=== PATIENT | male | born 1965 | race Caucasian/White ===

== ENCOUNTER 2016-09-14 19:13 | Observation (INO) | payer MEDICARE, OTHER ==
[2016-09-14 19:49] VITALS: BMI 33.9
--- NOTE | 2016-09-14 20:25 | ED PDOC ---
Arrival/HPI - General Chief Complaint: Headache Time Seen by Provider: 09/14/16 19:59 Historian: Patient - History of Present Illness Narrative History of Present Illness (Text): 09/14/16 20:27 A 51 year old male, whose past medical history includes CAD s/p stent placement , ESRD (on hemodialysis) and bronchial asthma, presents from dialysis following recurrent pains to his body and chest. Patient also notes associated brief syncopal episode. States chest pain developed two days ago. Patient denies any fever, chills, cough, abdominal pain, shortness of breath or any other complaints at this time. Patient states he is currently feeling better, no chest pain present. Time/Duration: Other (2 days) Symptom Onset: Sudden Symptom Course: Unchanged Activities at Onset: Rest Context: Other (dialysis) Past Medical History - Provider Review Nursing Documentation Reviewed: Yes - Past History Past History: No Previous - Infectious Disease Hx of Infectious Diseases: None - Tetanus Immunization Tetanus Immunization: Up to Date - Cardiac Hx Hypertension: Yes Hx Pacemaker: No - Pulmonary Hx Chronic Obstructive Pulmonary Disease (COPD): Yes - Neurological Hx Neurological Disorder: No Hx Paralysis: No - HEENT Hx HEENT Disorder: Yes (BILATERAL EYE WITH BLURRY VISION) Hx Cataracts: Yes (HAD SX 05/29/12) Other/Comment: left eye cornea transplant,RENAL RETINOPATHY, glasses - Renal Hx Renal Disorder: Yes Hx Dialysis: Yes (M-W-F) Type of Dialysis Access: AV shunt Date of Last Dialysis Treatment: 09/14/16 - Endocrine/Metabolic Hx Diabetes Mellitus Type 2: Yes - Hematological/Oncological Hx Blood Transfusions: Yes (5 YRS AGO) Hx Blood Transfusion Reaction: No - Integumentary Hx Dermatological Disorder: Yes (BILATERAL EDEMA TO UPPER AND LE,SKIN DRYNESS) - Musculoskeletal/Rheumatological Hx Musculoskeletal Disorders: No - Gastrointestinal Hx Gastrointestinal Disorders: (hx pancreatitis) Hx Gall Bladder Disease: Yes (CHOLECYSTECTOMY) Hx Gastroesophageal Reflux: Yes Hx Liver Failure: Yes (CKD) Hx Pancreatitis: Yes - Genitourinary/Gynecological Hx Genitourinary Disorders: Yes - Psychiatric Hx Psychophysiologic Disorder: No Hx Substance Use: No - Surgical History Hx Cardiac Catheterization: Yes Hx Cholecystectomy: Yes (08/15/12) Hx Coronary Stent: Yes Other/Comment: FISTULA - Anesthesia Hx Anesthesia: No Hx Anesthesia Reactions: No Hx Malignant Hyperthermia: No - Suicidal Assessment Feels Threatened In Home Enviroment: No Family/Social History - Physician Review Nursing Documentation Reviewed: Yes Family/Social History: No Known Family HX Smoking Status: Never Smoked Hx Alcohol Use: No Hx Substance Use: No Hx Substance Use Treatment: No Allergies/Home Meds Allergies/Adverse Reactions: Allergies insulin aspart [From Novolog] Allergy (Intermediate, Verified 06/16/15 10:08) ITCHING ANY INSULIN THAT STARTS WITH NOV- moxifloxacin Allergy (Intermediate, Verified 04/07/15 06:48) ITCHING Penicillins Allergy (Intermediate, Verified 04/07/15 06:48) ITCHING Home Medications: Home Meds Medication Instructions Recorded Confirmed Tamsulosin [Flomax] 1 cap PO HS 04/19/13 01/04/16 Zolpidem Tartrate 10 mg PO HS PRN 12/11/13 01/04/16 Cholecalciferol [Vitamin D 1000 IU] 50,000 iu PO WED 01/19/15 01/04/16 Clopidogrel [Plavix] 75 mg PO MWF 01/19/15 01/04/16 Fenofibrate Nanocrystallized 145 mg PO DAILY 01/19/15 01/04/16 [Fenofibrate] Montelukast [Singulair] 10 mg PO HS 01/19/15 01/04/16 Cetirizine HCl [Zyrtec] 10 mg PO QA 11/16/15 01/04/16 Ezetimibe [Zetia] 10 mg PO DAILY 11/16/15 01/04/16 Furosemide [Lasix] 40 mg PO BID 11/16/15 01/04/16 Gabapentin [Neurontin] 300 mg PO TID 11/16/15 01/04/16 Glipizide [Glipizide Xl] 10 mg PO BID 11/16/15 01/04/16 Metoprolol Tartrate [Metoprolol 50 mg PO [facility] 11/16/15 01/04/16 Tartrate] Hoffman-3 Acid Ethyl Esters [Lovaza] 1 gm PO BID 11/16/15 01/04/16 Rosuvastatin Calcium [Crestor] 20 mg PO HS 11/16/15 01/04/16 Albuterol HFA [Ventolin HFA 90 2 puff IH BID 12/11/15 01/04/16 mcg/actuation (8 g)] Calcium Acetate [Phoslo] 667 mg PO DAILY 12/11/15 01/04/16 Fluticasone/Salmeterol 250/50 1 puff IH Q12 12/11/15 01/04/16 [Advair Diskus] HumuLIN R 90 units SQ BID 01/04/16 01/04/16 Insulin Human NPH [Humulin N] 90 units SQ BID 01/04/16 01/04/16 Review of Systems - Physician Review All systems were reviewed & negative as marked: Yes - Review of Systems Constitutional: Other (body pain; no chills). absent: Fevers Respiratory: absent: SOB, Cough Cardiovascular: Chest Pain, Syncope (brief episode) Physical Exam Vital Signs Reviewed: Yes Vital Signs Temp Pulse Resp BP Pulse Ox 09/14/16 23:05 76 16 145/79 100 09/14/16 19:14 97.9 F 73 16 154/64 H 100 Temperature: Afebrile Blood Pressure: Hypertensive Pulse: Regular Respiratory Rate: Normal Appearance: Positive for: Well-Appearing, Non-Toxic, Comfortable Pain Distress: None Mental Status: Positive for: Alert and Oriented X 3 - Systems Exam Head: Present: Atraumatic, Normocephalic Pupils: Present: PERRL Extroacular Muscles: Present: EOMI Conjunctiva: Present: Normal Mouth: Present: Moist Mucous Membranes Neck: Present: Normal Range of Motion Respiratory/Chest: Present: Clear to Auscultation, Good Air Exchange. No: Respiratory Distress, Accessory Muscle Use Cardiovascular: Present: Regular Rate and Rhythm, Normal S1, S2. No: Murmurs Abdomen: Present: Normal Bowel Sounds. No: Tenderness, Distention, Peritoneal Signs Back: Present: Normal Inspection Upper Extremity: Present: Normal Inspection. No: Cyanosis, Edema Lower Extremity: Present: Normal Inspection. No: Edema Neurological: Present: GCS=15, CN II-XII Intact, Speech Normal Skin: Present: Warm, Dry, Normal Color. No: Rashes Psychiatric: Present: Alert, Oriented x 3, Normal Insight, Normal Concentration Medical Decision Making ED Course and Treatment: 09/14/16 20:22 Impression: A 51 year old male with recurrent pains to body and chest. Plan: -- EKG -- chest xray -- labs -- Reassess and disposition Prior Visits: Notes and results from previous visits were reviewed. Patient last reported to the emergency department on 12/29/15 for evaluation of fever. Patient was hospitalized under Dr. Kessler's service for fever, ESRD and sepsis. Patient discharged on 01/02/16. Progress Notes: EKG: Ordered, reviewed, and independently interpreted the EKG. Rate : 70 BPM Rhythm : NSR Interpretation : LAD No ST/T wave changes Comparison : No acute change from previous EKG on 12/29/2015. Chest X-ray shows no acute processes. 09/14/16 23:[address] Kessler, is aware and agrees with plan. Accepts patient into her service. Pt will go to remote telemetry for chest pain. Patient is in no acute distress. Discussed results and hospital observation plan with pt, who agrees and verbalizes understanding. - Lab Interpretations Lab Results: 09/14/16 20:15 09/14/16 20:15 Lab Results 09/14/16 20:15: PT 11.5, INR 1.06, APTT 23.6 L 09/14/16 20:15: WBC 2.9 L* D, RBC 3.34 L, Hgb 10.5 L, Hct 31.0 L, MCV 92.8, MCH 31.4, MCHC 33.9, RDW 13.3, Plt Count 145, MPV 11.5 H 09/14/16 20:15: Sodium 139, Potassium 3.2 L, Chloride 99, Carbon Dioxide 31, Anion Gap 12, BUN 17, Creatinine 2.5 H, Est GFR ( Amer) 33, Est GFR (Non- Af Amer) 27, Random Glucose 153 H, Calcium 8.6, Total Bilirubin 0.7, AST 45, ALT 44, Alkaline Phosphatase 58, Lactate Dehydrogenase 689, Total Creatine Kinase 392 H, CK-MB (CK-2) 5.0 H, CK-MB (CK-2) % 1.3 L, Troponin I 0.09, Total Protein 8.1, Albumin 4.1, Globulin 4.1, Albumin/Globulin Ratio 1.0 L I have reviewed the lab results: Yes - RAD Interpretation Radiology Orders: 09/14/16 20:10 CHEST PORTABLE [RAD] Stat - EKG Interpretation Interpreted by ED Physician: Yes Type: 12 lead EKG - Medication Orders Current Medication Orders: Discontinued Medications Aspirin (Aspirin) 325 mg PO ONCE STA Stop: 09/14/16 23:10 - Scribe Statement The provider has reviewed the documentation as recorded by the Elizabethibe Kathi Rankin Provider Scribe Attestation: All medical record entries made by the Scribe were at my direction and personally dictated by me. I have reviewed the chart and agree that the record accurately reflects my personal performance of the history, physical exam, medical decision making, and the department course for this patient. I have also personally directed, reviewed, and agree with the discharge instructions and disposition. Disposition/Present on Arrival - Present on Arrival Any Indicators Present on Arrival: No History of DVT/PE: No History of Uncontrolled Diabetes: Yes Urinary Catheter: No History of Decub. Ulcer: No History Surgical Site Infection Following: None - Disposition Have Diagnosis and Disposition been Completed?: Yes Diagnosis: Chest pain Disposition: HOSPITALIZED Disposition Time: 23:24 Patient Plan: Observation Patient Problems: Current Active Problems Problem Status Onset Chest pain Acute Condition: GOOD Discharge Instructions (ExitCare): Chest Pain (ED) Referrals: Diana Kessler MD [Primary Care Provider] - Follow up with primary
[2016-09-14 20:26] LABS: MEAN CELL VOLUME 92.8 fL (80.0-105.0); MEAN CORPUSCULAR HEMOGLOBIN 31.4 pg (25.0-35.0); MEAN CORPUSCULAR HGB CONC 33.9 g/dl (31.0-37.0); MEAN PLATELET VOLUME 11.5 fl (7.0-11.0); RED CELL DISTRIBUTION WIDTH 13.3 % (11.5-14.5)
[2016-09-14 20:34] LABS: WHITE BLOOD COUNT 2.9 10^3/ul (4.5-11.0)
[2016-09-14 20:35] LABS: BILIRUBIN,TOTAL 0.7 mg/dL (0.2-1.3); CALCIUM 8.6 mg/dL (8.4-10.5); POTASSIUM 3.2 mmol/L (3.6-5.0); TOTAL PROTEIN 8.1 g/dL (5.8-8.3)
[2016-09-14 20:37] LABS: INR 1.06 (0.93-1.08); PARTIAL THROMBOPLASTIN TIME 23.6 Seconds (23.7-30.8)
[2016-09-14 20:46] LABS: TROPONIN I 0.09 ng/mL
[2016-09-15] MEDS ORDERED: Budesonide 0.5 mg/2 ml Inhal Susp UD IH SCH (00:15)
[2016-09-15] MEDS ORDERED: Arformoterol 15 mcg/2 ml Inh Sol IH SCH ×2 (00:15→08:00)
[2016-09-15] MEDS ORDERED: Albuterol 0.083% Inhal Sol (2.5 mg/3 mL) UD IH SCH (00:56)
--- NOTE | 2016-09-15 01:49 | CP.PCM.PN ---
Subjective - Date & Time of Evaluation Date of Evaluation: 09/15/16 Time of Evaluation: 01:48 - Subjective Subjective: Patient was seen at bedside. He is complaining of aches from head to toes. Also , he is asking for his neurontin, singular, flomax and ambien. Has no other complaints. No chest pain, no sob. ROS : Negative except as mentioned above. This 51 year old male admitted Has PMH of ESRD on HD, COPD, DM, HTN, CAD, coronary stents , pancreatitis, anemia, obesity, cholecystectomy, bilateral corneal implant, bilateral eye surgery. Objective - Vital Signs/Intake and Output Vital Signs (last 24 hours): Temp Pulse Resp BP Pulse Ox 97.9 F 79 18 152/81 H 100 09/14/16 19:14 09/15/16 00:12 09/15/16 00:12 09/15/16 00:12 09/15/16 00:12 - Medications Medications: Current Medications Albuterol Sulfate (Albuterol 0.083% Inhal Jaimie (2.5 Mg/3 Ml) Ud) 2.5 mg IH BIDRESP [facility] Arformoterol Tartrate (Brovana) 15 mcg IH [id number] [facility] Last Admin: 09/15/16 00:51 Dose: 15 mcg Budesonide (Pulmicort Respules) 0.5 mg IH [id number] [facility] Calcium Acetate (Phoslo) 667 mg PO DAILY [facility] Cholecalciferol (Vitamin D) 50,000 iu PO WED [facility] Clopidogrel Bisulfate (Plavix) 75 mg PO MWF [facility] Ezetimibe (Zetia) 10 mg PO DAILY [facility] Fenofibrate (Tricor) 145 mg PO DAILY [facility] Furosemide (Lasix) 40 mg PO BID [facility] Gabapentin (Neurontin) 300 mg PO TID [facility] PRN Reason: Protocol Glipizide (Glucotrol Xl) 10 mg PO BID [facility] Insulin Human NPH (Humulin N) 90 units SC BID [facility] Insulin Human Regular (Humulin R Low) 0 units SC ACHS [facility] PRN Reason: Protocol Loratadine (Claritin) 10 mg PO QAM [facility] Metoprolol Tartrate (Lopressor) 50 mg PO MWF [facility] Montelukast Sodium (Singulair) 10 mg PO HS [facility] Tamsulosin HCl (Flomax) 0.4 mg PO HS [facility] Zolpidem Tartrate (Ambien) 10 mg PO HS PRN; Protocol PRN Reason: Insomnia - Labs Labs: PT 11.5 Seconds (9.9-11.8) 09/14/16 20:15 INR 1.06 (0.93-1.08) 09/14/16 20:15 APTT 23.6 Seconds (23.7-30.8) L 09/14/16 20:15 Most Recent Lab Values WBC 2.9 10^3/ul (4.5-11.0) L* D 09/14/16 20:15 RBC 3.34 10^6/uL (3.5-6.1) L 09/14/16 20:15 Hgb 10.5 gm/dL (14.0-18.0) L 09/14/16 20:15 Hct 31.0 % (42.0-52.0) L 09/14/16 20:15 MCV 92.8 fL (80.0-105.0) 09/14/16 20:15 MCH 31.4 pg (25.0-35.0) 09/14/16 20:15 MCHC 33.9 g/dl (31.0-37.0) 09/14/16 20:15 RDW 13.3 % (11.5-14.5) 09/14/16 20:15 Plt Count 145 10^3/uL (120.0-450.0) 09/14/16 20:15 MPV 11.5 fl (7.0-11.0) H 09/14/16 20:15 PT 11.5 Seconds (9.9-11.8) 09/14/16 20:15 INR 1.06 (0.93-1.08) 09/14/16 20:15 APTT 23.6 Seconds (23.7-30.8) L 09/14/16 20:15 Sodium 139 mmol/L (132-148) 09/14/16 20:15 Potassium 3.2 mmol/L (3.6-5.0) L 09/14/16 20:15 Chloride 99 mmol/L (98-107) 09/14/16 20:15 Carbon Dioxide 31 mmol/L (21-33) 09/14/16 20:15 Anion Gap 12 (10-20) 09/14/16 20:15 BUN 17 mg/dL (7-21) 09/14/16 20:15 Creatinine 2.5 mg/dL (0.5-1.4) H 09/14/16 20:15 Est GFR ( Amer) 33 09/14/16 20:15 Est GFR (Non-Af Amer) 27 09/14/16 20:15 Random Glucose 153 mg/dL (70-110) H 09/14/16 20:15 Calcium 8.6 mg/dL (8.4-10.5) 09/14/16 20:15 Total Bilirubin 0.7 mg/dL (0.2-1.3) 09/14/16 20:15 AST 45 U/L (15-59) 09/14/16 20:15 ALT 44 U/L (7-56) 09/14/16 20:15 Alkaline Phosphatase 58 U/L (38-133) 09/14/16 20:15 Lactate Dehydrogenase 689 U/L (333-699) 09/14/16 20:15 Total Creatine Kinase 392 U/L (35-230) H 09/14/16 20:15 CK-MB (CK-2) 5.0 ng/mL (0.0-3.6) H 09/14/16 20:15 CK-MB (CK-2) % 1.3 % (2.5-3.0) L 09/14/16 20:15 Troponin I 0.09 ng/mL 09/14/16 20:15 Total Protein 8.1 g/dL (5.8-8.3) 09/14/16 20:15 Albumin 4.1 g/dL (3.0-4.8) 09/14/16 20:15 Globulin 4.1 gm/dL 09/14/16 20:15 Albumin/Globulin Ratio 1.0 (1.1-1.8) L 09/14/16 20:15 - Constitutional Appears: Well, No Acute Distress - Head Exam Head Exam: ATRAUMATIC, NORMAL INSPECTION, NORMOCEPHALIC Additional comments: Obese. - Eye Exam Eye Exam: Normal appearance - ENT Exam ENT Exam: Normal External Ear Exam - Neck Exam Neck Exam: Normal Inspection - Respiratory Exam Respiratory Exam: NORMAL BREATHING PATTERN - Cardiovascular Exam Cardiovascular Exam: absent: JVD - GI/Abdominal Exam GI & Abdominal Exam: absent: Distended - Rectal Exam Rectal Exam: Deferred - Exam Additional comments: Above deferred. - Extremities Exam Extremities Exam: Normal Inspection - Back Exam Back Exam: NORMAL INSPECTION - Neurological Exam Neurological Exam: Alert, Oriented x3 - Psychiatric Exam Psychiatric exam: Normal Affect, Normal Mood - Skin Skin Exam: Normal Color Assessment and Plan - Assessment and Plan (Free Text) Assessment: Body aches. CKD on HD. Anemia. DM. HTN. CAD. History coronary stents placement. Obesity. Plan: Tylenol 975 mg PO stat. Will give neurontin, singular, flomax, ambien now. Continue present management as ordered by PMD.
[2016-09-15 06:51] VITALS: O2SAT 100
[2016-09-15] MEDS: Insulin Reg-LOW-Coverage SC SCH ×2 (08:28→12:32)
[2016-09-15] MEDS: Insulin Human NPH 1 UNITS/0.01 ML SC SCH ×2 (08:29→12:18)
--- NOTE | 2016-09-15 09:51 | RAD ---
HISTORY: chest pain COMPARISON: 12/29/2015 FINDINGS: LUNGS: No active pulmonary disease. PLEURA: No significant pleural effusion identified, no pneumothorax apparent. CARDIOVASCULAR: Moderate cardiomegaly OSSEOUS STRUCTURES: No significant abnormalities. VISUALIZED UPPER ABDOMEN: Normal. OTHER FINDINGS: None. IMPRESSION: No active disease.
[2016-09-15] MEDS ORDERED: GlipiZIDE 10 mg SR Tab PO SCH (10:00)
--- NOTE | 2016-09-15 11:03 | CP.PCM.CON ---
History of Present Illness - History of Present Illness History of Present Illness: Chest pain duriog dialysis last monday, when he dropss BP, gen weakness pain and aches all over body Past Patient History - Infectious Disease Hx of Infectious Diseases: None - Tetanus Immunizations Tetanus Immunization: Up to Date - Past Social History Smoking Status: Never Smoked - CARDIAC Hx Cardiac Disorders: Yes Hx Angina: Yes Hx Congestive Heart Failure: Yes Hx Hypertension: Yes Other/Comment: s/p PTCA LAD 3-4 years , Hx of PTCA RCA 10/2014. repeat Cath .. Non Obst CAd - PULMONARY Hx Chronic Obstructive Pulmonary Disease (COPD): Yes - NEUROLOGICAL Hx Neurological Disorder: No Hx Paralysis: No - HEENT Hx HEENT Problems: Yes (BILATERAL EYE WITH BLURRY VISION) Hx Cataracts: Yes (HAD SX 05/29/12) Other/Comment: left eye cornea transplant,RENAL RETINOPATHY, glasses - RENAL Hx Chronic Kidney Disease: Yes Hx Dialysis: Yes Date of Last Dialysis Treatment: 09/14/16 - ENDOCRINE/METABOLIC Hx Diabetes Mellitus Type 1: Yes - HEMATOLOGICAL/ONCOLOGICAL Hx Blood Transfusions: Yes (5 YRS AGO) Hx Blood Transfusion Reaction: No - INTEGUMENTARY Hx Dermatological Problems: Yes (BILATERAL EDEMA TO UPPER AND LE,SKIN DRYNESS) - MUSCULOSKELETAL/RHEUMATOLOGICAL Hx Falls: No - GASTROINTESTINAL Hx Gastrointestinal Disorders: (hx pancreatitis) Hx Gall Bladder Disease: Yes (CHOLECYSTECTOMY) Hx Gastroesophageal Reflux: Yes Hx Liver Failure: Yes (CKD) Hx Pancreatitis: Yes - GENITOURINARY/GYNECOLOGICAL Hx Genitourinary Disorders: Yes - PSYCHIATRIC Hx Psychophysiologic Disorder: No Hx Substance Use: No - SURGICAL HISTORY Hx Coronary Stent: Yes - ANESTHESIA Hx Anesthesia: No Hx Anesthesia Reactions: No Hx Malignant Hyperthermia: No Meds Allergies/Adverse Reactions: Allergies Allergy/AdvReac Type Severity Reaction Status Date / Time insulin aspart [From Novolog] Allergy Intermediate ITCHING Verified 06/16/15 10: 08 moxifloxacin Allergy Intermediate ITCHING Verified 04/07/15 06:48 Penicillins Allergy Intermediate ITCHING Verified 04/07/15 06:48 - Medications Medications: Current Medications Arformoterol Tartrate (Brovana) 15 mcg IH [id number] [facility] Last Admin: 09/15/16 07:32 Dose: 15 mcg Budesonide (Pulmicort Respules) 0.5 mg IH [id number] [facility] Last Admin: 09/15/16 07:29 Dose: 0.5 mg Calcium Acetate (Phoslo) 667 mg PO DAILY [facility] Last Admin: 09/15/16 09:38 Dose: 667 mg Clopidogrel Bisulfate (Plavix) 75 mg PO MWF [facility] Ezetimibe (Zetia) 10 mg PO DAILY [facility] Ergocalciferol (Drisdol 50,000 Intl Units Cap) 50,000 cap PO WED [facility] Fenofibrate (Tricor) 145 mg PO DAILY [facility] Last Admin: 09/15/16 09:38 Dose: 145 mg Furosemide (Lasix) 40 mg PO BID [facility] Last Admin: 09/15/16 09:38 Dose: 40 mg Gabapentin (Neurontin) 300 mg PO TID [facility] PRN Reason: Protocol Last Admin: 09/15/16 09:38 Dose: 300 mg Glipizide (Glucotrol Xl) 10 mg PO BID [facility] Last Admin: 09/15/16 09:38 Dose: 10 mg Insulin Human NPH (Humulin N) 90 units SC BID [facility] Last Admin: 09/15/16 08:29 Dose: 90 units Insulin Human Regular (Humulin R Low) 0 units SC ACHS [facility] PRN Reason: Protocol Last Admin: 09/15/16 08:28 Dose: 2 units Loratadine (Claritin) 10 mg PO QAM [facility] Last Admin: 09/15/16 09:39 Dose: 10 mg Metoprolol Tartrate (Lopressor) 50 mg PO MWF [facility] Montelukast Sodium (Singulair) 10 mg PO HS [facility] Tamsulosin HCl (Flomax) 0.4 mg PO HS [facility] Zolpidem Tartrate (Ambien) 10 mg PO HS PRN; Protocol PRN Reason: Insomnia Results - Vital Signs Recent Vital Signs: Last Vital Signs Temp 98.2 F 09/15/16 06:00 Pulse 70 09/15/16 07:35 Resp 22 09/15/16 06:00 BP 166/73 H 09/15/16 09:38 Pulse Ox 100 09/15/16 06:00 - Labs Result Diagrams: 09/14/16 20:15 09/14/16 20:15 - EKG Data When Compared to Previous EKG: No Significant Change Interpretation: Other EKG comments: NSR, at 70PRR progression, T inversion V6 Assessment & Plan - Assessment and Plan (Free Text) Assessment: 51 yr old male with T2Dm with full blown complication of Dm, diabetic retinopathy, Neuro[athy,Nephropathy on HD times three/wk Hx of CAD, S/p PTCa LAD 3-4 years Hx of Ptca RCa 11/01 Hx of repeat cath 11/2015 ... non obst CAD admittec javier talbot ome episode of chest pain last monday during dialysis when dropped bp no further episode of chedt misti, doubt is ischemic. Plan: F/u serial Cpk/ troponin, if negative may be dc home, if positive 9 doubt) then consider cath
--- NOTE | 2016-09-15 12:08 | CARD ---
APPROVED REPORT EKG Measurement Heart Dare71UPTH [id number] <Conclusion> Normal sinus rhythm Possible Left atrial enlargement Left axis deviation T wave abnormality, consider lateral ischemia Prolonged QT Abnormal ECG
[2016-09-15 12:25] VITALS: BP 186/86; PULSE 72; RESP 20; TEMP 98.3
[2016-09-21] MEDS ORDERED: Ergocalciferol 50,000 Intl Units Cap PO SCH (10:00)
--- NOTE | 2016-10-09 14:23 | CP.PCM.HP ---
History of Present Illness - History of Present Illness History of Present Illness: 09/15/16 A 51 year old male, whose past medical history includes CAD s/p stent placement , ESRD (on hemodialysis) and bronchial asthma, presents from dialysis following recurrent pains to his body and chest. Patient also notes associated brief syncopal episode. States chest pain developed two days ago. Patient denies any fever, chills, cough, abdominal pain, shortness of breath or any other complaints at this time. Patient states he is currently feeling better, no chest pain present. Present on Admission - Present on Admission Any Indicators Present on Admission: No Review of Systems - Constitutional Constitutional: As Per HPI - EENT Eyes: As Per HPI Ears: As Per HPI Nose/Mouth/Throat: As Per HPI - Cardiovascular Cardiovascular: As Per HPI - Respiratory Respiratory: As Per HPI - Gastrointestinal Gastrointestinal: As Per HPI - Genitourinary Genitourinary: As Per HPI - Reproductive: Male Reproductive:Male: As Per HPI Past Patient History - Infectious Disease Hx of Infectious Diseases: None - Tetanus Immunizations Tetanus Immunization: Up to Date - Past Social History Smoking Status: Never Smoked - CARDIAC Hx Cardiac Disorders: Yes Hx Angina: Yes Hx Congestive Heart Failure: Yes Hx Hypertension: Yes Other/Comment: s/p PTCA LAD 3-4 years , Hx of PTCA RCA 10/2014. repeat Cath .. Non Obst CAd - PULMONARY Hx Chronic Obstructive Pulmonary Disease (COPD): Yes - NEUROLOGICAL Hx Neurological Disorder: No Hx Paralysis: No - HEENT Hx HEENT Problems: Yes (BILATERAL EYE WITH BLURRY VISION) Hx Cataracts: Yes (HAD SX 05/29/12) Other/Comment: left eye cornea transplant,RENAL RETINOPATHY, glasses - RENAL Hx Chronic Kidney Disease: Yes Hx Dialysis: Yes Date of Last Dialysis Treatment: 09/14/16 - ENDOCRINE/METABOLIC Hx Diabetes Mellitus Type 1: Yes - HEMATOLOGICAL/ONCOLOGICAL Hx Blood Transfusions: Yes (5 YRS AGO) Hx Blood Transfusion Reaction: No - INTEGUMENTARY Hx Dermatological Problems: Yes (BILATERAL EDEMA TO UPPER AND LE,SKIN DRYNESS) - MUSCULOSKELETAL/RHEUMATOLOGICAL Hx Falls: No - GASTROINTESTINAL Hx Gastrointestinal Disorders: (hx pancreatitis) Hx Gall Bladder Disease: Yes (CHOLECYSTECTOMY) Hx Gastroesophageal Reflux: Yes Hx Liver Failure: Yes (CKD) Hx Pancreatitis: Yes - GENITOURINARY/GYNECOLOGICAL Hx Genitourinary Disorders: Yes - PSYCHIATRIC Hx Psychophysiologic Disorder: No Hx Substance Use: No - SURGICAL HISTORY Hx Coronary Stent: Yes - ANESTHESIA Hx Anesthesia: No Hx Anesthesia Reactions: No Hx Malignant Hyperthermia: No Meds Allergies/Adverse Reactions: Allergies Allergy/AdvReac Type Severity Reaction Status Date / Time insulin aspart [From Novolog] Allergy Intermediate ITCHING Verified 06/16/15 10: 08 moxifloxacin Allergy Intermediate ITCHING Verified 04/07/15 06:48 Penicillins Allergy Intermediate ITCHING Verified 04/07/15 06:48 Physical Exam - Constitutional Appears: Well - Head Exam Head Exam: ATRAUMATIC, NORMAL INSPECTION, NORMOCEPHALIC - Eye Exam Eye Exam: EOMI, Normal appearance, PERRL Pupil Exam: NORMAL ACCOMODATION, PERRL - ENT Exam ENT Exam: Mucous Membranes Moist, Normal Exam - Neck Exam Neck exam: Positive for: Normal Inspection - Respiratory Exam Respiratory Exam: Clear to Auscultation Bilateral, NORMAL BREATHING PATTERN - Cardiovascular Exam Cardiovascular Exam: REGULAR RHYTHM - GI/Abdominal Exam GI & Abdominal Exam: Normal Bowel Sounds, Soft. absent: Tenderness - Rectal Exam Rectal Exam: NORMAL INSPECTION - Exam Exam: Circumcision, NORMAL INSPECTION External exam: NORMAL EXTERNAL EXAM Speculum exam: NORMAL SPECULUM EXAM Bimanual exam: NORMAL BIMANUAL EXAM - Extremities Exam Extremities exam: Positive for: normal inspection - Back Exam Back exam: NORMAL INSPECTION - Neurological Exam Neurological exam: Alert, CN II-XII Intact, Normal Gait, Oriented x3, Reflexes Normal - Psychiatric Exam Psychiatric exam: Normal Affect, Normal Mood - Skin Skin Exam: Dry, Intact, Normal Color, Warm Results - Vital Signs Recent Vital Signs: Last Vital Signs Temp 98.3 F 09/15/16 12:00 Pulse 72 09/15/16 12:00 Resp 20 09/15/16 12:00 BP 186/86 H 09/15/16 12:00 Pulse Ox 100 09/15/16 06:00 - Labs Result Diagrams: 09/14/16 20:15 09/14/16 20:15 Assessment & Plan (1) ACS (acute coronary syndrome) Status: Acute (2) Acute asthma exacerbation Status: Acute (3) Acute hyperglycemia Status: Acute (4) Altered mental status Status: Acute (5) Anemia Status: Acute (6) Asthma exacerbation Status: Acute (7) Bursitis Status: Acute (8) Chest pain Status: Acute (9) Cough Status: Acute (10) ESRD (end stage renal disease) Status: Acute (11) Edema leg Status: Acute (12) Fever Status: Acute (13) Hematuria Status: Acute (14) Pulmonary edema Status: Acute (15) Renal failure Status: Acute (16) Sepsis Status: Acute (17) Shortness of breath Status: Acute (18) Status asthmaticus Status: Acute (19) Uncontrolled diabetes mellitus Status: Acute (20) Urinary tract infection Status: Acute (21) Wheezing Status: Acute - Assessment and Plan (Free Text) Assessment: Assessment: 51 yr old male with T2Dm with full blown complication of Dm, diabetic retinopathy, Neuro[athy,Nephropathy on HD times three/wk Hx of CAD, S/p PTCa LAD 3-4 years Hx of Ptca RCa 11/01 Hx of repeat cath 11/2015 ... non obst CAD admittec javier talbot ome episode of chest pain last monday during dialysis when dropped bp no further episode of chedt misti, doubt is ischemic. Plan: F/u serial Cpk/ troponin, cleared by cardio , send home with f/u as out pt
--- NOTE | 2016-10-09 14:24 | CP.PCM.DIS ---
Provider - Provider Date of Admission: 09/14/16 23:22 Attending physician: Diana Kessler MD Primary care physician: Diana Kessler MD Consults: see my h/p of the same day Time Spent in preparation of Discharge (in minutes): 10 Diagnosis - Discharge Diagnosis (1) ACS (acute coronary syndrome) Status: Acute (2) Acute asthma exacerbation Status: Acute (3) Acute hyperglycemia Status: Acute (4) Altered mental status Status: Acute (5) Anemia Status: Acute (6) Asthma exacerbation Status: Acute (7) Bursitis Status: Acute (8) Chest pain Status: Acute (9) Cough Status: Acute (10) ESRD (end stage renal disease) Status: Acute (11) Edema leg Status: Acute (12) Fever Status: Acute (13) Hematuria Status: Acute (14) Pulmonary edema Status: Acute (15) Renal failure Status: Acute (16) Sepsis Status: Acute (17) Shortness of breath Status: Acute (18) Status asthmaticus Status: Acute (19) Uncontrolled diabetes mellitus Status: Acute (20) Urinary tract infection Status: Acute (21) Wheezing Status: Acute Hospital Course - Lab Results Lab Results: Most Recent Lab Values WBC 2.9 10^3/ul (4.5-11.0) L* D 09/14/16 20:15 RBC 3.34 10^6/uL (3.5-6.1) L 09/14/16 20:15 Hgb 10.5 gm/dL (14.0-18.0) L 09/14/16 20:15 Hct 31.0 % (42.0-52.0) L 09/14/16 20:15 MCV 92.8 fL (80.0-105.0) 09/14/16 20:15 MCH 31.4 pg (25.0-35.0) 09/14/16 20:15 MCHC 33.9 g/dl (31.0-37.0) 09/14/16 20:15 RDW 13.3 % (11.5-14.5) 09/14/16 20:15 Plt Count 145 10^3/uL (120.0-450.0) 09/14/16 20:15 MPV 11.5 fl (7.0-11.0) H 09/14/16 20:15 PT 11.5 Seconds (9.9-11.8) 09/14/16 20:15 INR 1.06 (0.93-1.08) 09/14/16 20:15 APTT 23.6 Seconds (23.7-30.8) L 09/14/16 20:15 Sodium 139 mmol/L (132-148) 09/14/16 20:15 Potassium 3.2 mmol/L (3.6-5.0) L 09/14/16 20:15 Chloride 99 mmol/L (98-107) 09/14/16 20:15 Carbon Dioxide 31 mmol/L (21-33) 09/14/16 20:15 Anion Gap 12 (10-20) 09/14/16 20:15 BUN 17 mg/dL (7-21) 09/14/16 20:15 Creatinine 2.5 mg/dL (0.5-1.4) H 09/14/16 20:15 Est GFR ( Amer) 33 09/14/16 20:15 Est GFR (Non-Af Amer) 27 09/14/16 20:15 POC Glucose (mg/dL) 294 mg/dL (65-110) H 09/15/16 11:37 Random Glucose 153 mg/dL (70-110) H 09/14/16 20:15 Calcium 8.6 mg/dL (8.4-10.5) 09/14/16 20:15 Total Bilirubin 0.7 mg/dL (0.2-1.3) 09/14/16 20:15 AST 45 U/L (15-59) 09/14/16 20:15 ALT 44 U/L (7-56) 09/14/16 20:15 Alkaline Phosphatase 58 U/L (38-133) 09/14/16 20:15 Lactate Dehydrogenase 689 U/L (333-699) 09/14/16 20:15 Total Creatine Kinase 392 U/L (35-230) H 09/14/16 20:15 CK-MB (CK-2) 5.0 ng/mL (0.0-3.6) H 09/14/16 20:15 CK-MB (CK-2) % 1.3 % (2.5-3.0) L 09/14/16 20:15 Troponin I 0.09 ng/mL 09/14/16 20:15 Total Protein 8.1 g/dL (5.8-8.3) 09/14/16 20:15 Albumin 4.1 g/dL (3.0-4.8) 09/14/16 20:15 Globulin 4.1 gm/dL 09/14/16 20:15 Albumin/Globulin Ratio 1.0 (1.1-1.8) L 09/14/16 20:15 Discharge Exam - Head Exam Head Exam: ATRAUMATIC, NORMAL INSPECTION, NORMOCEPHALIC Discharge Plan - Follow Up Plan Condition: GOOD Disposition: HOME/ ROUTINE Instructions: Chest Pain (DC), Dialysis Diet (DC), Heart Healthy Diet (GEN), Noncardiac Chest Pain (GEN) Additional Instructions: Follow up with Dr Kessler on Monday at 1pm as per her instructions.
== END 2016-09-15 15:02 | disposition home or self-care (01) ==
LOC: EDSEX → ED 19:13 → ERH 23:22 → 2RNO 09-15 01:06
PROVIDERS: ADMIT Internal Medicine; ATTEND Internal Medicine
DX: R07.9 Chest pain, unspecified (principal); N18.6 End stage renal disease; I12.0 Hypertensive chronic kidney disease with stage 5 chronic kidney disease or end stage renal disease; Z99.2 Dependence on renal dialysis; E11.21 Type 2 diabetes mellitus with diabetic nephropathy; J44.9 Chronic obstructive pulmonary disease, unspecified; I25.10 Atherosclerotic heart disease of native coronary artery without angina pectoris; E11.40 Type 2 diabetes mellitus with diabetic neuropathy, unspecified; E11.319 Type 2 diabetes mellitus with unspecified diabetic retinopathy without macular edema; D64.9 Anemia, unspecified; E66.9 Obesity, unspecified; Z79.51 Long term (current) use of inhaled steroids; Z95.5 Presence of coronary angioplasty implant and graft
CPT/HCPCS: 71010; 80053; 82550; 82553; 82948; 83615; 84484; 85027; 85610; 85730; 93005; 94640; 94760; 99285; G0378

== ENCOUNTER 2017-04-06 10:54 | Emergency (ER) | payer MEDICARE, OTHER ==
[2017-04-06 10:55] VITALS: BMI 33.6
--- NOTE | 2017-04-06 11:48 | ED PDOC ---
Arrival/HPI - General Chief Complaint: Dizziness/Lightheaded Time Seen by Provider: 04/06/17 11:22 Historian: Patient - History of Present Illness Narrative History of Present Illness (Text): 04/06/17 11:32 A 51 year old male, whose past medical history includes ESRD( on dialysis , , Mon), CAD, cardiac stents and bronchial asthma, diabetes, and hypertension, presents to the emergency department complaining of dizziness and nausea. Patient reports dizziness is a room spinning sensation that began yesterday with associated nausea. States he has experienced similar symptoms in the past when he was diagnosed with flu. Patient later attempted to rest but had no relief. Last night, patient also began to experience abdominal pain. This morning, patient had 3 episodes of vomiting. Patient denies any fever, cough, chest pain, or any other complaints at this time. Also, patient mentions last dialysis appointment was 3 days ago, and was unable to go yesterday due to not feeling well. PMD: Dr. Kessler Past Medical History - Provider Review Nursing Documentation Reviewed: Yes - Past History Past History: No Previous - Infectious Disease Hx of Infectious Diseases: None - Tetanus Immunization Tetanus Immunization: Up to Date - Reproductive Currently Lactating: No - Cardiac Hx Cardiac Disorders: Yes Hx Angina: Yes Hx Congestive Heart Failure: Yes Hx Hypertension: Yes Other/Comment: s/p PTCA LAD 3-4 years , Hx of PTCA RCA 10/2014. repeat Cath .. Non Obst CAd - Pulmonary Hx Chronic Obstructive Pulmonary Disease (COPD): Yes - Neurological Hx Neurological Disorder: No Hx Paralysis: No - HEENT Hx HEENT Disorder: Yes (BILATERAL EYE WITH BLURRY VISION) Hx Cataracts: Yes (HAD SX 05/29/12) Other/Comment: left eye cornea transplant,RENAL RETINOPATHY, glasses - Renal Hx Renal Disorder: Yes Hx Dialysis: Yes Hx Kidney Stones: Yes (04/03) - Endocrine/Metabolic Hx Diabetes Mellitus Type 1: Yes - Hematological/Oncological Hx Blood Transfusions: Yes (5 YRS AGO) Hx Blood Transfusion Reaction: No - Integumentary Hx Dermatological Disorder: Yes (BILATERAL EDEMA TO UPPER AND LE,SKIN DRYNESS) - Musculoskeletal/Rheumatological Hx Falls: No - Gastrointestinal Hx Gastrointestinal Disorders: (hx pancreatitis) Hx Gall Bladder Disease: Yes (CHOLECYSTECTOMY) Hx Gastroesophageal Reflux: Yes Hx Liver Failure: Yes (CKD) Hx Pancreatitis: Yes - Genitourinary/Gynecological Hx Genitourinary Disorders: Yes - Psychiatric Hx Psychophysiologic Disorder: No Hx Substance Use: No - Surgical History Hx Coronary Stent: Yes Hx Vascular Access Device: Yes - Anesthesia Hx Anesthesia: No Hx Anesthesia Reactions: No Hx Malignant Hyperthermia: No - Suicidal Assessment Feels Threatened In Home Enviroment: No Family/Social History - Physician Review Nursing Documentation Reviewed: Yes Family/Social History: No Known Family HX Smoking Status: Never Smoked Hx Alcohol Use: No Hx Substance Use: No Hx Substance Use Treatment: No Allergies/Home Meds Allergies/Adverse Reactions: Allergies insulin aspart [From Novolog] Allergy (Intermediate, Verified 04/06/17 11:01) ITCHING ANY INSULIN THAT STARTS WITH NOV- moxifloxacin Allergy (Intermediate, Verified 04/06/17 11:01) ITCHING Penicillins Allergy (Intermediate, Verified 04/06/17 11:01) ITCHING Home Medications: Home Meds Medication Instructions Recorded Confirmed Tamsulosin [Flomax] 1 cap PO DAILY 04/19/13 04/06/17 Zolpidem Tartrate 10 mg PO HS PRN 12/11/13 04/06/17 Cholecalciferol [Vitamin D 1000 IU] 50,000 iu PO WED 01/19/15 04/06/17 Clopidogrel [Plavix] 75 mg PO DAILY 01/19/15 04/06/17 Fenofibrate Nanocrystallized 160 mg PO DAILY 01/19/15 04/06/17 [Fenofibrate] Montelukast [Singulair] 10 mg PO HS 01/19/15 04/06/17 Cetirizine HCl [Zyrtec] 10 mg PO QAM 11/16/15 04/06/17 Furosemide [Lasix] 40 mg PO BID 11/16/15 04/06/17 Gabapentin [Neurontin] 100 mg PO DAILY 11/16/15 04/06/17 Glipizide [Glipizide Xl] 10 mg PO BID 11/16/15 04/06/17 Metoprolol Tartrate 50 mg PO DAILY 11/16/15 04/06/17 [place]-3 Acid Ethyl Esters [Lovaza] 2 gm PO BID 11/16/15 04/06/17 Rosuvastatin Calcium [Crestor] 10 mg PO HS 11/16/15 04/06/17 Albuterol HFA [Ventolin HFA 90 2 puff IH BID 12/11/15 04/06/17 mcg/actuation (8 g)] Calcium Acetate [Phoslo] 667 mg PO TID 12/11/15 04/06/17 Fluticasone/Salmeterol 250/50 1 puff IH Q12 12/11/15 04/06/17 [Advair Diskus 250/50] HumuLIN R 100 units SQ BID 01/04/16 04/06/17 Insulin Human NPH [Humulin N] 90 units SQ BID 01/04/16 04/06/17 Bimatoprost [Lumigan] 1 drop BOTHEYES HS 04/06/17 04/06/17 Losartan [Cozaar] 50 mg PO DAILY 04/06/17 04/06/17 Nateglinide [Starlix] 120 mg PO DAILY 04/06/17 04/06/17 hydrALAZINE [Apresoline] 25 mg PO BID 04/06/17 04/06/17 Review of Systems - Physician Review All systems were reviewed & negative as marked: Yes - Review of Systems Constitutional: absent: Fevers Respiratory: absent: SOB, Cough Cardiovascular: absent: Chest Pain, Palpitations, Edema, Orthopnea Gastrointestinal: Abdominal Pain, Nausea, Vomiting (3 episodes). absent: Constipation, Diarrhea Neurological: Dizziness (room spinning sensation) Physical Exam Vital Signs Reviewed: Yes Vital Signs Pulse Resp BP Pulse Ox 04/06/17 11:23 75 12 154/70 H 93 L Temperature: Afebrile Blood Pressure: Normal Pulse: Regular Respiratory Rate: Normal Appearance: Positive for: Well-Appearing Pain Distress: None Mental Status: Positive for: Alert and Oriented X 3 Finger Stick Blood Glucose: 119 - Systems Exam Head: Present: Atraumatic, Normocephalic Pupils: Present: PERRL Extroacular Muscles: Present: EOMI Conjunctiva: Present: Normal Mouth: Present: Moist Mucous Membranes Neck: Present: Normal Range of Motion Respiratory/Chest: Present: Other (coarse breath sounds) Cardiovascular: Present: Regular Rate and Rhythm, Normal S1, S2. No: Murmurs Abdomen: Present: Normal Bowel Sounds. No: Tenderness, Distention, Peritoneal Signs Back: Present: Normal Inspection Upper Extremity: Present: Normal Inspection. No: Cyanosis, Edema Lower Extremity: Present: Normal Inspection. No: Edema Neurological: Present: GCS=15, CN II-XII Intact, Speech Normal. No: Other (no nystagmus) Skin: Present: Warm, Dry, Normal Color. No: Rashes Psychiatric: Present: Alert, Oriented x 3, Normal Insight, Normal Concentration Medical Decision Making ED Course and Treatment: 04/06/17 11:36 Impression: 51 year old male with dizziness, nausea, abdominal pain, and 3 episodes of vomiting. Plan: -- EKG -- Head CT -- Chest X-ray -- Labs -- Antivert -- Zofran -- Reassess and disposition Prior Visits: Notes and results from previous visits were reviewed. Patient was last seen in the emergency department on 01/13/2017 for nausea, vomiting, and frequent episodes of diarrhea. Patient was admitted. Progress Notes: EKG: Ordered, reviewed, and independently interpreted the EKG. Rate : 74 BPM Rhythm : NSR Interpretation : Left axis deviation, no T-wave changes. Comparison : No previous EKG for comparison. 04/06/2017 12:[address] IMPRESSION: No acute finding. Dictator: Robbie Redman MD 04/06/2017 12:37 Chest X-ray IMPRESSION: No active pulmonary disease. Persistent severe cardiomegaly. Dictator: Marita Fajardo MD 04/06/17 13:02 After meclizine, patient reports symptoms are improved. Normal neuro exam. His labs are at baseline. He denies chest pain or shortness of breath and reports that he will go to dialysis tomorrow and return immediately with any worsening symptoms. He is requesting something to eat and then dc. 04/06/17 13:49 Patient tolerating po - Lab Interpretations Lab Results: 04/06/17 12:18 04/06/17 12:18 Lab Results 04/06/17 12:18: Sodium 136, Potassium 5.4 H, Chloride 94 L, Carbon Dioxide 27, Anion Gap 20, BUN 80 H, Creatinine 9.9 H*, Est GFR ( Amer) 7, Est GFR ( Non-Af Amer) 6, Random Glucose 147 H, Calcium 8.4, Phosphorus 8.0 H, Magnesium 2.3 H, Total Bilirubin 0.6, AST 43, ALT 42, Alkaline Phosphatase 58, Total Creatine Kinase 267 H, CK-MB (CK-2) 4.9 H, CK-MB (CK-2) % Cancelled, Troponin I 0.07 D, Total Protein 8.4 H, Albumin 4.0, Globulin 4.4, Albumin/Globulin Ratio 0.9 L, Lipase 423 H 04/06/17 12:18: WBC 4.0 L, RBC 3.71, Hgb 11.2 L, Hct 34.6 L, MCV 93.3, MCH 30.2 , MCHC 32.4, RDW 15.2 H, Plt Count 159, MPV 10.9, Gran % 69.5 H, Lymph % (Auto) 20.5 L, [place] % (Auto) 7.0 H, Eos % (Auto) 2.5, Baso % (Auto) 0.5, Gran # 2.78, Lymph # 0.8 L, [place] # 0.3, Eos # 0.1, Baso # 0.02 04/06/17 11:10: POC Glucose (mg/dL) 119 H - RAD Interpretation Radiology Orders: 04/06/17 11:24 CHEST TWO VIEWS (PA/LAT) [RAD] Stat 04/06/17 11:25 HEAD W/O CONTRAST [CT] Stat - Medication Orders Current Medication Orders: Discontinued Medications Meclizine HCl (Antivert) 50 mg PO STAT STA Stop: 04/06/17 11:26 Last Admin: 04/06/17 12:15 Dose: 50 mg Ondansetron HCl (Zofran Inj) 4 mg IVP STAT STA Stop: 04/06/17 11:26 Last Admin: 04/06/17 12:15 Dose: 4 mg IVP Administration Document 04/06/17 12:15 BARBARA (Rec: 04/06/17 12:28 RG [id number]) Charges for Administration # of IVP Administrations 1 - Scribe Statement The provider has reviewed the documentation as recorded by the Fransisca Marsh Provider Scribe Attestation: All medical record entries made by the Scribclive were at my direction and personally dictated by me. I have reviewed the chart and agree that the record accurately reflects my personal performance of the history, physical exam, medical decision making, and the department course for this patient. I have also personally directed, reviewed, and agree with the discharge instructions and disposition. Disposition/Present on Arrival - Present on Arrival Any Indicators Present on Arrival: No History of DVT/PE: No History of Uncontrolled Diabetes: Yes Urinary Catheter: No History of Decub. Ulcer: No History Surgical Site Infection Following: None - Disposition Have Diagnosis and Disposition been Completed?: Yes Diagnosis: Vomiting Disposition: HOME/ ROUTINE Disposition Time: 13:03 Patient Plan: Discharge Condition: GOOD Additional Instructions: Follow-up for dialysis tomorrow. Return immediately with any worsening symptoms. Follow-up with PMD within 2 days Referrals: Diana Kessler MD [Primary Care Provider] - Follow up with primary Forms: [employer] ([place])
--- NOTE | 2017-04-06 12:22 | CT ---
PROCEDURE: CT HEAD WITHOUT CONTRAST. HISTORY: altered COMPARISON: 10/23/2014 TECHNIQUE: Axial computed tomography images were obtained through the head/brain without intravenous contrast. Radiation dose: Total exam DLP = 893 mGy-cm. This CT exam was performed using one or more of the following dose reduction techniques: Automated exposure control, adjustment of the mA and/or kV according to patient size, and/or use of iterative reconstruction technique. FINDINGS: HEMORRHAGE: No intracranial hemorrhage. BRAIN: No mass effect or edema. No atrophy or chronic microvascular ischemic changes. VENTRICLES: Unremarkable. No hydrocephalus. CALVARIUM: Unremarkable. PARANASAL SINUSES: Unremarkable as visualized. No significant inflammatory changes. MASTOID AIR CELLS: Unremarkable as visualized. No inflammatory changes. OTHER FINDINGS: None. IMPRESSION: No acute finding
[2017-04-06 12:27] LABS: BASO # 0.02 K/mm3 (0.0-2.0); BASO % 0.5 % (0.0-3.0); EOS # 0.1 (0.0-0.7); EOS % 2.5 % (1.5-5.0); GRAN # 2.78 (1.4-6.5); GRAN % 69.5 % (50.0-68.0); HEMOGLOBIN 11.2 g/dL (14.0-18.0); LYMPH # 0.8 (1.2-3.4); LYMPH % 20.5 % (22.0-35.0); MEAN CELL VOLUME 93.3 fl (80.0-105.0); MEAN CORPUSCULAR HEMOGLOBIN 30.2 pg (25.0-35.0); MEAN CORPUSCULAR HGB CONC 32.4 g/dl (31.0-37.0); MEAN PLATELET VOLUME 10.9 fl (7.0-11.0); MONO # 0.3 (0.1-0.6); RBC 3.71 10^6/uL (3.5-6.1); RED CELL DISTRIBUTION WIDTH 15.2 % (11.5-14.5)
--- NOTE | 2017-04-06 12:39 | RAD ---
HISTORY: COMPARISON: 01/13/2017. TECHNIQUE: Chest PA and lateral FINDINGS: LINES AND TUBES: None. LUNG AND PLEURA: The lungs are well inflated. There is right basilar atelectasis. HEART AND MEDIASTINUM: There is persistent severe cardiomegaly. The hilar and mediastinal contours are within normal limits. SKELETAL STRUCTURES: The bony structures are within normal limits for the patient's age. VISUALIZED UPPER ABDOMEN: Normal. OTHER FINDINGS: None. IMPRESSION: No active pulmonary disease. Persistent severe cardiomegaly.
[2017-04-06 12:48] LABS: TROPONIN I 0.07 ng/mL
[2017-04-06 12:54] LABS: ALB/GLOB RATIO 0.9 (1.1-1.8); CALCIUM 8.4 mg/dL (8.4-10.5); CK-MB 4.9 ng/mL (0.0-3.6); MAGNESIUM 2.3 mg/dL (1.7-2.2)
[2017-04-06 13:54] VITALS: BP 187/79; PULSE 79; RESP 18; O2SAT 95
--- NOTE | 2017-04-06 15:28 | CARD ---
APPROVED REPORT EKG Measurement Heart [id number] <Conclusion> Normal sinus rhythm Left axis deviation PRWP QS in V1, possible septal NH, age unknown ST & T wave abnormality, consider lateral ischemia
== END 2017-04-06 13:55 | disposition home or self-care (01) ==
LOC: ED 10:54
DX: R11.10 Vomiting, unspecified (principal); I12.0 Hypertensive chronic kidney disease with stage 5 chronic kidney disease or end stage renal disease; N18.6 End stage renal disease; Z99.2 Dependence on renal dialysis; I50.9 Heart failure, unspecified; I25.10 Atherosclerotic heart disease of native coronary artery without angina pectoris
CPT/HCPCS: 70450; 71046; 80053; 82550; 82553; 82948; 83690; 83735; 84100; 84484; 85025; 93005; 96374; 99285; J2405

== ENCOUNTER 2017-04-08 09:43 | Inpatient (IN) | payer MEDICARE, OTHER ==
[2017-04-08] MEDS ORDERED: Dextrose 50% SYRINGE Inj (50 ml) IVP STA ×2 (09:49→12:38)
--- NOTE | 2017-04-08 10:14 | RAD ---
HISTORY: rout med exam COMPARISON: 04/06/2017 FINDINGS: LUNGS: There has been interval development of increased interstitial markings with mild alveolar haziness. Finding may suggest vascular congestion in the correct clinical setting. Poor expiratory effort is also noted when compared to the prior study with mild bibasilar volume loss noted. PLEURA: No significant pleural effusion identified, no pneumothorax apparent. CARDIOVASCULAR: Heart is moderately enlarged. OSSEOUS STRUCTURES: No significant abnormalities. VISUALIZED UPPER ABDOMEN: Normal. OTHER FINDINGS: None. IMPRESSION: Development of probable vascular congestion from the prior examination. Mild bibasilar volume loss noted.
[2017-04-08 10:24] LABS: VENOUS BLOOD GAS BASE EXCESS 8.4 mmol/L (0.0-2.0); VENOUS BLOOD GAS PO2 89 mm/Hg (30-55); VENOUS BLOOD PH 7.36 (7.32-7.43)
[2017-04-08 10:26] LABS: BASO # 0.02 [, K/mm3] (0.0-2.0); BASO % 0.7 % (0.0-3.0); EOS % 1.1 % (1.5-5.0); GRAN # 2.03 (1.4-6.5); GRAN % 75.2 % (50.0-68.0); HEMOGLOBIN 10.4 g/dL (14.0-18.0); LYMPH # 0.4 (1.2-3.4); LYMPH % 15.2 % (22.0-35.0); MEAN CELL VOLUME 94.6 fl (80.0-105.0); MEAN CORPUSCULAR HEMOGLOBIN 29.3 pg (25.0-35.0); MEAN PLATELET VOLUME 11.1 fl (7.0-11.0); MONO # 0.2 (0.1-0.6); MONO % 7.8 % (1.0-6.0); RBC 3.55 [, 10^6/uL] (3.5-6.1)
[2017-04-08] MEDS ORDERED: TDAP Vaccine 0.5 mL Syr IM ONE (10:28)
[2017-04-08 10:37] LABS: WHITE BLOOD COUNT 2.7 [, 10^3/ul] (4.5-11.0)
--- NOTE | 2017-04-08 10:38 | ED PDOC ---
Arrival/HPI - General Chief Complaint: Altered Mental Status Time Seen by Provider: 04/08/17 09:48 Historian: Patient - History of Present Illness Narrative History of Present Illness (Text): 04/08/17 10:43 A 51 year old male, whose past medical history includes ESRD (dialysis M, W, F, last time for dialysis unknown), s/p pci, hypertension, diabetes, CAD, s/p cholecystectomy, left cornea transplant, cardiac stents and bronchial asthma, was brought in by EMS to the emergency department for low blood sugar and unresponsiveness from home. Patient was found by family member at home to be unresponsive. EMS reported finger stick below 40, and after given D 50, finger stick went up to 221. Patient here in the emergency department remains unresponsive. Patient last reported to the emergency department two days ago for dizziness and nausea, patient was diagnosed with gastritis and sent home. Denies any other complaints at this time. Symptom Onset: Sudden Symptom Course: Unchanged Activities at Onset: Rest Context: Home Past Medical History - Provider Review Nursing Documentation Reviewed: Yes - Past History Past History: No Previous - Infectious Disease Hx of Infectious Diseases: None - Tetanus Immunization Tetanus Immunization: Up to Date - Reproductive Currently Lactating: No - Cardiac Hx Cardiac Disorders: Yes Hx Angina: Yes Hx Congestive Heart Failure: Yes Hx Hypertension: Yes Other/Comment: s/p PTCA LAD 3-4 years , Hx of PTCA RCA 10/2014. repeat Cath .. Non Obst CAd - Pulmonary Hx Chronic Obstructive Pulmonary Disease (COPD): Yes - Neurological Hx Neurological Disorder: No Hx Paralysis: No - HEENT Hx HEENT Disorder: Yes (BILATERAL EYE WITH BLURRY VISION) Hx Cataracts: Yes (HAD SX 05/29/12) Other/Comment: left eye cornea transplant,RENAL RETINOPATHY, glasses - Renal Hx Renal Disorder: Yes Hx Dialysis: Yes Hx Kidney Stones: Yes (04/03) - Endocrine/Metabolic Hx Diabetes Mellitus Type 1: Yes - Hematological/Oncological Hx Blood Transfusions: Yes (5 YRS AGO) Hx Blood Transfusion Reaction: No - Integumentary Hx Dermatological Disorder: Yes (BILATERAL EDEMA TO UPPER AND LE,SKIN DRYNESS) - Musculoskeletal/Rheumatological Hx Falls: No - Gastrointestinal Hx Gastrointestinal Disorders: (hx pancreatitis) Hx Gall Bladder Disease: Yes (CHOLECYSTECTOMY) Hx Gastroesophageal Reflux: Yes Hx Liver Failure: Yes (CKD) Hx Pancreatitis: Yes - Genitourinary/Gynecological Hx Genitourinary Disorders: Yes - Psychiatric Hx Psychophysiologic Disorder: No Hx Substance Use: No - Surgical History Hx Coronary Stent: Yes Hx Vascular Access Device: Yes - Anesthesia Hx Anesthesia: Yes Hx Anesthesia Reactions: No Hx Malignant Hyperthermia: No - Suicidal Assessment Feels Threatened In Home Enviroment: No Family/Social History - Physician Review Nursing Documentation Reviewed: Yes Family/Social History: No Known Family HX Smoking Status: Never Smoked Hx Alcohol Use: No Hx Substance Use: No Hx Substance Use Treatment: No Allergies/Home Meds Allergies/Adverse Reactions: Allergies insulin aspart [From Novolog] Allergy (Intermediate, Verified 04/08/17 16:46) ITCHING ANY INSULIN THAT STARTS WITH NOV- moxifloxacin Allergy (Intermediate, Verified 04/08/17 16:46) ITCHING Penicillins Allergy (Intermediate, Verified 04/08/17 16:46) ITCHING Home Medications: Home Meds Medication Instructions Recorded Confirmed Tamsulosin [Flomax] 1 cap PO DAILY 04/19/13 04/08/17 Zolpidem Tartrate 10 mg PO HS PRN 12/11/13 04/06/17 Cholecalciferol [Vitamin D 1000 IU] 50,000 iu PO WED 01/19/15 04/08/17 Clopidogrel [Plavix] 75 mg PO DAILY 01/19/15 04/08/17 Fenofibrate Nanocrystallized 160 mg PO DAILY 01/19/15 04/08/17 [Fenofibrate] Montelukast [Singulair] 10 mg PO HS 01/19/15 04/08/17 Cetirizine HCl [Zyrtec] 10 mg PO QAM 11/16/15 04/08/17 Furosemide [Lasix] 40 mg PO BID 11/16/15 04/08/17 Gabapentin [Neurontin] 100 mg PO DAILY 11/16/15 04/08/17 Glipizide [Glipizide Xl] 10 mg PO BID 11/16/15 04/08/17 Metoprolol Tartrate 50 mg PO DAILY 11/16/15 04/06/17 [place]-3 Acid Ethyl Esters [Lovaza] 2 gm PO BID 11/16/15 04/08/17 Rosuvastatin Calcium [Crestor] 10 mg PO HS 11/16/15 04/08/17 Albuterol HFA [Ventolin HFA 90 2 puff IH BID 12/11/15 04/08/17 mcg/actuation (8 g)] Calcium Acetate [Phoslo] 667 mg PO TID 12/11/15 04/08/17 Fluticasone/Salmeterol 250/50 1 puff IH Q12 12/11/15 04/08/17 [Advair Diskus 250/50] HumuLIN R 100 units SQ BID 01/04/16 04/08/17 Insulin Human NPH [Humulin N] 90 units SQ BID 01/04/16 04/08/17 Bimatoprost [Lumigan] 1 drop BOTHEYES HS 04/06/17 04/08/17 Losartan [Cozaar] 50 mg PO DAILY 04/06/17 04/08/17 Nateglinide [Starlix] 120 mg PO DAILY 04/06/17 04/08/17 hydrALAZINE [Apresoline] 25 mg PO BID 04/06/17 04/08/17 Review of Systems - Review of Systems Systems not reviewed;Unavailable: Other (unresponsive; open eyes and moans in response to query) Physical Exam Vital Signs Reviewed: Yes Vital Signs Temp Pulse Resp BP Pulse Ox 04/08/17 18:26 96.0 F L 04/08/17 17:02 66 19 145/99 H 98 04/08/17 16:18 63 18 141/74 98 04/08/17 16:12 95.6 F L 04/08/17 14:15 60 17 123/68 97 04/08/17 12:48 94.3 F L 134/67 04/08/17 12:46 70 17 98 04/08/17 10:30 60 16 114/54 L 100 04/08/17 09:46 93.8 F L 74 20 149/72 96 04/08/17 09:43 93.5 F L 62 15 149/72 97 Temperature: Afebrile Blood Pressure: Normal Pulse: Regular Respiratory Rate: Normal Appearance: Positive for: Comfortable Pain Distress: None Mental Status: Positive for: other (opens eyes and moans in response to query) - Systems Exam Head: Present: Atraumatic, Normocephalic Respiratory/Chest: Present: Clear to Auscultation, Good Air Exchange. No: Respiratory Distress, Accessory Muscle Use Cardiovascular: Present: Regular Rate and Rhythm, Normal S1, S2. No: Murmurs Abdomen: Present: Normal Bowel Sounds, Other (left upper quadrant abdomen superficial abrasions, contusions). No: Tenderness, Distention, Peritoneal Signs Back: Present: Normal Inspection Upper Extremity: Present: Normal Inspection. No: Cyanosis, Edema Lower Extremity: Present: Other (left pretibial superficial abrasions; no calf tenderness, no popliteal tenderness). No: Edema Neurological: Present: Other (responding by opening eyes and moans in response to query) Skin: Present: Warm, Dry, Normal Color. No: Rashes Psychiatric: Present: Alert Medical Decision Making ED Course and Treatment: 04/08/17 10:35 Impression: A 51 year old male with unresponsiveness. Plan: -- EKG -- chest xray -- CT head -- CT pelvis -- Radiology right tibia fibula -- labs -- Urinalysis -- Dextrose, Boostrix -- Reassess and disposition Prior Visits: Notes and results from previous visits were reviewed. Patient was last seen in the emergency department on 04/06/17 for evaluation of dizziness and nausea. Progress Notes: hypothermia 93.5 rectally. EKG: Ordered, reviewed, and independently interpreted the EKG. Rate : 66 BPM Rhythm : NSR Interpretation : LVH, QT prolonged at 505 millisec, no ischemic ST/T segments 04/08/17 10:17 chest xray Creator : Edilson Thomson MD FINDINGS: LUNGS: There has been interval development of increased interstitial markings with mild alveolar haziness. Finding may suggest vascular congestion in the correct clinical setting. Poor expiratory effort is also noted when compared to the prior study with mild bibasilar volume loss noted. PLEURA: No significant pleural effusion identified, no pneumothorax apparent. CARDIOVASCULAR: Heart is moderately enlarged. OSSEOUS STRUCTURES: No significant abnormalities. VISUALIZED UPPER ABDOMEN: Normal. IMPRESSION: Development of probable vascular congestion from the prior examination. Mild bibasilar volume loss noted. 04/08/17 12:40 CT HEAD WITHOUT CONTRAST Creator : Edilson Thomson MD FINDINGS: HEMORRHAGE: No intracranial hemorrhage. BRAIN: No mass effect or edema. No interval change from the recent examination. No new cortical effacement is seen. No new area of decreased density is appreciated. Posterior fossa is unchanged. Minor age related changes are seen. VENTRICLES: Unremarkable. No hydrocephalus. CALVARIUM: Unremarkable. PARANASAL SINUSES: Unremarkable as visualized. No significant inflammatory changes. MASTOID AIR CELLS: Unremarkable as visualized. No inflammatory changes. IMPRESSION: No evidence of recent infarct or new cortical effacement compared to the prior examination performed 04/06/2017. Minor age related changes. 04/08/17 13:03 CT Pelvis without contrast Creator : Edilson Thomson MD FINDINGS: BLADDER: Bladder is decompressed limiting evaluation. Mild bladder wall thickening is not excluded. REPRODUCTIVE ORGANS: Prostate gland is mildly enlarged. VISUALIZED BOWEL: Unremarkable. PERITONEUM: No ascites is seen. No mesenteric or omental thickening is noted. LYMPH NODES: Unremarkable. No enlarged lymph nodes. BONES: No fracture is seen. Degenerative changes are seen in the hips. Additional degenerative changes are seen in the sacroiliac joint regions. Degenerative changes are also seen in the lumbar spine. Pubic rami are intact. Overlying pelvic musculature is unremarkable. Small fat containing inguinal hernias are noted. VASCULATURE: Moderate atherosclerotic change of the femoral vessels in the inguinal region and proximal thigh. Iliac vessels show no evidence of significant atherosclerotic narrowing. IMPRESSION: No appreciable fracture after reported trauma. Please see above for other details. 04/08/17 13:11 Radiographs of the right tibia and fibula Creator : Edilson Thomson MD FINDINGS: BONES: No appreciable fracture is noted. No periosteal reaction is noted. Vascular calcification is seen in the soft tissues. Mild degenerative changes are seen in the knee joint region. No lytic process is noted. Ankle region is unremarkable. JOINT SPACES: See above IMPRESSION: No fracture. 04/08/17 18:59 pt remaining with refractory hypoglycemia with d50 x 3 , now on d10 and too lethargic to eat. No need for octretide infusion gtt as patient gycemic statsus begimnning to respone Pt.will need admission for treatment of refractory hypoglycemia as well - Lab Interpretations Lab Results: 04/08/17 10:15 04/08/17 10:15 Lab Results 04/08/17 15:19: POC Glucose (mg/dL) 100 04/08/17 12:37: POC Glucose (mg/dL) 25 L* 04/08/17 10:50: Urine Color Yellow, Urine Appearance Clear, Urine pH 7.0, Ur Specific [place] 1.015, Urine Protein >=300 H, Urine Glucose (UA) Negative, Urine Ketones Negative, Urine Blood Small H, Urine Nitrate Negative, Urine Bilirubin Negative, Urine Urobilinogen 0.2, Ur Leukocyte Esterase Negative, Urine RBC 0 - 2, Urine WBC 0 - 2, Ur Epithelial Cells 0 - 2, Urine Bacteria Few 04/08/17 10:15: pO2 89 H, VBG pH 7.36, VBG pCO2 64.0 H, VBG HCO3 36.2 H, VBG Total CO2 38.2 H, VBG O2 Sat (Calc) 97.2 H, VBG Base Excess 8.4 H, VBG Potassium 3.2 L, Sodium 139.0, Chloride 97.0 L, Glucose 82, Lactate 1.2, FiO2 21.0, Venous Blood Potassium 3.2 L 04/08/17 10:15: Sodium 140, Chloride 94 L, Potassium 3.3 L, Carbon Dioxide 31, Anion Gap 18, BUN 49 H, Creatinine 7.0 H, Est GFR ( Amer) 10, Est GFR ( Non-Af Amer) 8, Random Glucose 83, Calcium 8.6, Total Bilirubin 0.6, AST 46, ALT 32, Alkaline Phosphatase 43, Troponin I 0.07, Total Protein 8.3, Albumin 4.0 , Globulin 4.3, Albumin/Globulin Ratio 0.9 L 04/08/17 10:15: PT 13.5 H, INR 1.17 H, APTT 30.3 04/08/17 10:15: WBC 2.7 L* D, RBC 3.55, Hgb 10.4 L, Hct 33.6 L, MCV 94.6, MCH 29.3, MCHC 31.0, RDW 15.0 H, Plt Count 115 L, MPV 11.1 H, Gran % 75.2 H, Lymph % (Auto) 15.2 L, [place] % (Auto) 7.8 H, Eos % (Auto) 1.1 L, Baso % (Auto) 0.7, Gran # 2.03, Lymph # 0.4 L, Fergus # 0.2, Eos # 0.0, Baso # 0.02 I have reviewed the lab results: Yes - RAD Interpretation Radiology Orders: 04/08/17 09:49 CHEST PORTABLE [RAD] Stat 04/08/17 10:26 HEAD W/O CONTRAST [CT] Stat 04/08/17 10:27 PELVIS W/O PO OR IV CONTRAST [CT] Stat TIBIA FIBULA RIGHT [RAD] Stat - EKG Interpretation Interpreted by ED Physician: Yes Type: 12 lead EKG - Medication Orders Current Medication Orders: Dextrose (Dextrose 10% In Water) 500 mls @ 75 mls/hr IV .[id number] ONE Stop: 04/08/17 19:24 Last Admin: 04/08/17 13:10 Dose: 75 mls/hr eMAR Start Stop Document 04/08/17 13:10 SF (Rec: 04/08/17 13:11 SF [id number]) Intravenous Solution Start Date 04/08/17 Start Time 13:11 End Date 04/08/17 Discontinued Medications Dextrose (Dextrose 50% Inj) 50 ml IVP STAT STA Stop: 04/08/17 09:50 Last Admin: 04/08/17 10:23 Dose: 50 ml IVP Administration Document 04/08/17 10:23 SRE (Rec: 04/08/17 10:24 SRE [id number]) Charges for Administration # of IVP Administrations 1 Dextrose (Dextrose 50% Inj) 50 ml IVP STAT STA Stop: 04/08/17 12:39 Last Admin: 04/08/17 12:48 Dose: 50 ml IVP Administration Document 04/08/17 12:48 SF (Rec: 04/08/17 12:48 SF [id number]) Charges for Administration # of IVP Administrations 1 Vancomycin HCl (Vancomycin 1gm) 1 gm in 250 mls @ 167 mls/hr IVPB STAT STA PRN Reason: Protocol Stop: 04/08/17 12:12 Last Admin: 04/08/17 13:12 Dose: 167 mls/hr eMAR Start Stop Document 04/08/17 13:12 SF (Rec: 04/08/17 16:26 SF [id number]) Intravenous Solution Start Date 04/08/17 Start Time 13:12 End Date 04/08/17 End time 14:45 Total Infusion Time 93 Piperacillin Sod/Tazobactam Sod (Zosyn 3.375 In Ns 100ml) 100 mls @ 200 mls/hr IVPB STAT STA PRN Reason: Protocol Stop: 04/08/17 11:13 Last Admin: 04/08/17 11:24 Dose: 200 mls/hr eMAR Start Stop Document 04/08/17 11:24 SRE (Rec: 04/08/17 11:25 SRE [id number]) Intravenous Solution Start Date 04/08/17 Start Time 11:20 End Date 04/08/17 End time 12:20 Total Infusion Time 60 Tetanus/Reduced Diphtheria/Acell Pertussis (Boostrix Vaccine Inj) 0.5 ml IM .ONCE ONE Stop: 04/08/17 10:29 Last Admin: 04/08/17 11:26 Dose: 0.5 ml MAR Immunization Data Document 04/08/17 11:26 SRE (Rec: 04/08/17 11:26 SRE [id number]) Immunization Data Vaccine Information Sheet Given Yes Immunization Registry Document 04/08/17 11:26 SRE (Rec: 04/08/17 11:26 SRE [id number]) Immunization Registry Consent Date 04/06/17 - Scribe Statement The provider has reviewed the documentation as recorded by the Elizabethibclive Rankin Provider Scribe Attestation: All medical record entries made by the Scribe were at my direction and personally dictated by me. I have reviewed the chart and agree that the record accurately reflects my personal performance of the history, physical exam, medical decision making, and the department course for this patient. I have also personally directed, reviewed, and agree with the discharge instructions and disposition. Disposition/Present on Arrival - Present on Arrival Any Indicators Present on Arrival: Yes History of DVT/PE: No History of Uncontrolled Diabetes: Yes Urinary Catheter: No History of Decub. Ulcer: No History Surgical Site Infection Following: None - Disposition Have Diagnosis and Disposition been Completed?: Yes Diagnosis: Hypoglycemia, Leukopenia Disposition: HOSPITALIZED Disposition Time: 16:20 Patient Plan: Admission, Telemetry Condition: GUARDED
[2017-04-08 10:42] LABS: ALB/GLOB RATIO 0.9 (1.1-1.8); CALCIUM 8.6 mg/dL (8.4-10.5)
[2017-04-08] MEDS ORDERED: Vancomycin 1gm in NS 250ml 1 GM/250 ML BAG IVPB STA (10:43)
[2017-04-08] MEDS ORDERED: Piperacillin/Tazobact 3.375 gm 100 ML IVPB STA (10:44)
[2017-04-08 10:45] LABS: INR 1.17 (0.93-1.08); PARTIAL THROMBOPLASTIN TIME 30.3 Seconds (25.1-36.5); PROTHROMBIN TIME 13.5 SECONDS (9.4-12.5); TROPONIN I 0.07 ng/mL
[2017-04-08 10:54] VITALS: BMI 32.9
[2017-04-08 11:18] LABS: URINE BILIRUBIN NEGATIVE (NEGATIVE); URINE BLOOD SMALL (NEGATIVE); URINE GLUCOSE (UA) NEGATIVE (NEGATIVE); URINE LEUKOCYTE ESTERASE NEGATIVE Leu/uL (NEGATIVE); URINE NITRATE NEGATIVE (NEGATIVE); URINE PROTEIN >=300 mg/dL (<30 mg/dL); URINE UROBILINOGEN 0.2 E.U./dL (<1 E.U./dL)
[2017-04-08 11:31] LABS: URINE APPEARANCE CLEAR (CLEAR); URINE COLOR YELLOW (YELLOW)
[2017-04-08 11:42] LABS: URINE BACTERIA FEW (NEG); URINE EPITHELIAL CELLS 0 - 2 /hpf (0-5); URINE RBC 0 - 2 /hpf (0-2); URINE WBC 0 - 2 /hpf (0-6)
--- NOTE | 2017-04-08 12:38 | CT ---
PROCEDURE: CT HEAD WITHOUT CONTRAST. HISTORY: routine medexam COMPARISON: 04/06/2017 TECHNIQUE: Axial computed tomography images were obtained through the head/brain without intravenous contrast. Radiation dose: Total exam DLP = 846 mGy-cm. This CT exam was performed using one or more of the following dose reduction techniques: Automated exposure control, adjustment of the mA and/or kV according to patient size, and/or use of iterative reconstruction technique. FINDINGS: HEMORRHAGE: No intracranial hemorrhage. BRAIN: No mass effect or edema. No interval change from the recent examination. No new cortical effacement is seen. No new area of decreased density is appreciated. Posterior fossa is unchanged. Minor age related changes are seen. VENTRICLES: Unremarkable. No hydrocephalus. CALVARIUM: Unremarkable. PARANASAL SINUSES: Unremarkable as visualized. No significant inflammatory changes. MASTOID AIR CELLS: Unremarkable as visualized. No inflammatory changes. OTHER FINDINGS: None. IMPRESSION: No evidence of recent infarct or new cortical effacement compared to the prior examination performed 04/06/2017. Minor age related changes.
--- NOTE | 2017-04-08 13:00 | CT ---
PROCEDURE: CT Pelvis without contrast HISTORY: fall COMPARISON: 2014 TECHNIQUE: Contiguous axial images of the pelvis . No intravenous or oral contrast given. Coronal and sagittal reformats generated. Radiation dose: Total exam DLP = 601 mGy-cm. This CT exam was performed using one or more of the following dose reduction techniques: Automated exposure control, adjustment of the mA and/or kV according to patient size, and/or use of iterative reconstruction technique. FINDINGS: BLADDER: Bladder is decompressed limiting evaluation. Mild bladder wall thickening is not excluded. REPRODUCTIVE ORGANS: Prostate gland is mildly enlarged. VISUALIZED BOWEL: Unremarkable. PERITONEUM: No ascites is seen. No mesenteric or omental thickening is noted. LYMPH NODES: Unremarkable. No enlarged lymph nodes. BONES: No fracture is seen. Degenerative changes are seen in the hips. Additional degenerative changes are seen in the sacroiliac joint regions. Degenerative changes are also seen in the lumbar spine. Pubic rami are intact. Overlying pelvic musculature is unremarkable. Small fat containing inguinal hernias are noted. VASCULATURE: Moderate atherosclerotic change of the femoral vessels in the inguinal region and proximal thigh. Iliac vessels show no evidence of significant atherosclerotic narrowing. OTHER FINDINGS: None. IMPRESSION: No appreciable fracture after reported trauma. Please see above for other details.
--- NOTE | 2017-04-08 13:09 | RAD ---
PROCEDURE: Radiographs of the right tibia and fibula. HISTORY: r/o [id number] COMPARISON: None available. TECHNIQUE: Frontal and lateral views obtained. FINDINGS: BONES: No appreciable fracture is noted. No periosteal reaction is noted. Vascular calcification is seen in the soft tissues. Mild degenerative changes are seen in the knee joint region. No lytic process is noted. Ankle region is unremarkable. JOINT SPACES: See above OTHER FINDINGS: None. IMPRESSION: No fracture.
[2017-04-08] MEDS ORDERED: Non Formulary Medication (Bimatoprost [Lumigan] 1 DROP) BOTHEYES SCH (22:00)
[2017-04-08] MEDS ORDERED: Fluticasone-Salmeterol 250-50mcg Diskus IH SCH (22:00)
[2017-04-08] MEDS: Latanoprost 2.5 ml Opht Soln OU SCH (22:07)
[2017-04-08] MEDS ORDERED: Influenza Vaccine 60 mcg/0.5 mL SYR (4YR UP) IM ONE (22:42)
[2017-04-08] MEDS ORDERED: Pneumococcal 23-Valent Vaccine IM ONE (22:42)
[2017-04-09] MEDS: Albuterol 0.083% Inhal Sol (2.5 mg/3 mL) UD IH SCH ×2 (08:03→20:30)
[2017-04-09] MEDS: Arformoterol 15 mcg/2 ml Inh Sol IH SCH ×2 (08:03→20:30)
[2017-04-09] MEDS: Budesonide 0.5 mg/2 ml Inhal Susp UD IH SCH ×2 (08:04→20:30)
[2017-04-09] MEDS: Insulin Reg-LOW-Coverage SC SCH ×4 (08:05→22:16)
[2017-04-09] MEDS: Omega-3-Acid Ethyl Esters 1 GM Cap PO SCH ×2 (09:07→17:23)
--- NOTE | 2017-04-09 09:50 | CARD ---
APPROVED REPORT EKG Measurement Heart [id number] TX [id number] <Conclusion> Normal sinus rhythm LAD PRWP STTW changes c/w ischemia Prolonged QTc
[2017-04-09] MEDS ORDERED: Albuterol HFA 90 mcg/actuation (8 g) IH SCH (10:00)
[2017-04-09] MEDS ORDERED: Vancomycin 500mg in NS 500 MG/100 ML BAG IVPB STA (17:35)
[2017-04-09] MEDS: Latanoprost 2.5 ml Opht Soln OU SCH (22:17)
--- NOTE | 2017-04-09 23:16 | HP ---
The patient was seen and examined on 04/08/2017. CHIEF COMPLAINT: Altered mental status. HISTORY OF PRESENT ILLNESS: Mr. Jason Berger is a 51-year-old male with past medical history of end-stage renal disease on hemodialysis 3 times a week, last dialysis was done last week; history of hypertension; insulin dependent diabetes mellitus, uncontrolled; coronary artery disease; bronchial asthma; obstructive sleep apnea syndrome, brought to the Emergency Room Department for low blood sugar and unresponsiveness at home. The patient was found by the mother at home unresponsive. EMS reported fingerstick was below 40 and after giving D50 fingerstick went to 221, but in ER sugar dropped down again then the patient got dextrose. The patient in the Emergency Room was actually unresponsive. The patient last reported to be Emergency Room Department 2 days for dizziness and nausea and the patient was diagnosed with gastritis, sent home. When I saw the patient in the ER, mother was sitting on the bedside also. The patient was complaining of pains and aches in the body. May be in his unresponsiveness he had fall. PAST MEDICAL HISTORY: Angina, congestive heart failure, hypertension, PTCA couple of times, cardiac catheterization, COPD, obstructive sleep apnea syndrome, bilateral eye surgery, left corneal transplant. The patient has history of nephropathy, retinopathy, history of cholecystectomy, and history of pancreatitis. FAMILY HISTORY: Father and mother noncontributory. HABITS: Never smoke. No drugs. No ethanol. ALLERGIES: THE PATIENT IS ALLERGIC WITH ASPART INSULIN, AVELOX, AND PENICILLIN. HOME MEDICATIONS: Reviewed by me, Flomax, Zolpidem, vitamin D, Plavix, Fenofibrate, Singulair, Zyrtec, Lasix, Neurontin, glipizide, metoprolol, Lovaza, Crestor, Ventolin, PhosLo, Advair, Cozaar, Starlix, and hydralazine. REVIEW OF SYSTEMS: The patient was seen and examined on the bedside on 04/08/2017. Mother was sitting on the bedside also. Feeling fatigue and tired, body aches. No nausea or vomiting or diarrhea. No hematuria or hematochezia. At that moment; no headache. No fever. No chills. PHYSICAL EXAMINATION: VITAL SIGNS: Temperature 96.6, pulse is 66, respiratory rate 19, blood pressure 145/99, and pulse oximetry 98%. HEENT: Head is normocephalic and atraumatic. Eyes, PERRLA. Extraocular muscles intact. Conjunctivae clear. Nose patent. Mucous membranes moist. NECK: Supple. No carotid bruits, JVD, or thyromegaly. CHEST: Bilaterally symmetrical. HEART: S1 and S2 positive. LUNGS: Clear to auscultation. ABDOMEN: Soft. Bowel sounds positive. No organomegaly. EXTREMITIES: No edema. No cyanosis. NEUROLOGIC: The patient is awake and alert. Moving all four extremities. No focal deficits. LABORATORY DATA: White blood cell 2.7, hemoglobin 10.4, hematocrit 33.6, and platelets 115. Sodium 140, potassium 3.3, BUN 49, creatinine 7.0, and glucose 83. ASSESSMENT AND PLAN: Mr. Jason Berger is a 51-year-old male with leukopenia, anemia, thrombocytopenia, actually pancytopenia, hypokalemia, renal insufficiency on hemodialysis, was unresponsive, may be hypoglycemia or may be syncopal attack and fall. EMS give dextrose, gave couple of dextrose then the patient's mental status improved. The patient has history of renal dialysis on hemodialysis 3 times a week, history of congestive heart failure, hypertension, obstructive sleep apnea syndrome, history of eye surgery, insulin dependent diabetes mellitus, not very well controlled, history of pancreatitis, cholecystectomy, chronic obstructive pulmonary disease, coronary artery disease, has vascular access device. We admitted the patient. Restarted home medications. Put on sliding scale. X-ray of tibia and fibula done. No fracture noted. CAT scan of the pelvis done. No appreciable fracture after reported trauma. Has moderate atherosclerotic changes of the femoral vessels in the inguinal region and proximal thigh. No ascites noted. CAT scan of the head done. No evidence of recent infarct or new cortical assessment compared to the prior examination performed on 04/06/2017, minor age related changes are noted. Rule out early sepsis that is why we put consult with Dr. Forbes, Infectious Disease; Dr. Moreno, Neurologist and Dr. Escalera. The patient had problems with sleep, getting Ambien 10 mg at home. I ordered 5 mg and we will follow on that. The patient got tetanus injection in the Emergency Room. We will continue present treatment. Repeat labs. We will followup. Diana Kessler MD RACHEL
[2017-04-10] MEDS: Insulin Reg-LOW-Coverage SC SCH ×4 (00:21→17:04)
--- NOTE | 2017-04-10 02:15 | PN ---
DATE: SUBJECTIVE: The patient is seen and examined on the bedside, looking comfortable. No more shortness of breath. No more fatigue and tired. No headache. No dizziness. No chest pain. No palpitation. No fever. No chills. PHYSICAL EXAMINATION: VITAL SIGNS: Temperature 97.8, pulse 80, blood pressure 170/80, and respiratory rate 20. HEENT: Head, normocephalic and atraumatic. Eyes, PERRLA. Extraocular muscles intact. Conjunctivae are clear. Nose is patent. Mucous membranes moist. NECK: Supple. No carotid bruits. No JVD or thyromegaly. CHEST: Bilaterally symmetrical. HEART: S1 and S2 positive. LUNGS: Clear to auscultation. ABDOMEN: Soft. Bowel sounds present. No organomegaly. EXTREMITIES: No edema. No cyanosis. NEUROLOGIC: The patient is awake and alert. Moving all four extremities. No focal deficits. MEDICATIONS: Zolpidem, hydralazine, albuterol, Brovana, Claritin, Cozaar, vitamin D, tramadol, insulin, Lasix, Lipitor, Lopressor, Lovaza, meropenem, Neurontin, Plavix, Pulmicort, Singulair, TriCor, tramadol and Xalatan ophthalmic solution. LABORATORY DATA: White blood cell 2.7, hemoglobin 10.4, hematocrit 33.6 and platelets 115. Sodium 140, potassium 3.3, BUN 49, creatinine 7.0 and glucose was 25 and repeat is 195. ASSESSMENT AND PLAN: Mr. Jason Berger is a 51-year-old male with the leukopenia, anemia, thrombocytopenia, practically pancytopenia, hypokalemia, renal insufficiency on hemodialysis three times a week, came with hypoglycemic episode and syncopal attack. Proteinuria, hematuria, had a fall when he had syncopal attack. In ER x-ray of the tibia-fibula done and pelvis and head CAT scan done, reviewed by me. The patient has insulin-dependent diabetes mellitus and not very well controlled, episode of hypoglycemia, coronary artery disease, status post cholecystectomy, cardiac stents, bronchial asthma, insomnia for sleep apnea syndrome. Today, blood pressure is high, nurse just called me, the patient was getting hydralazine 25 twice a day, I made it 50 mg twice a day. We will follow up very closely. Infectious Disease is on the case to make sure the patient was not septic that caused the hypoglycemia. Meanwhile continue present treatment. Gastrointestinal and deep venous thrombosis prophylaxis. Repeat labs. Diana Kessler MD [email or web address]
--- NOTE | 2017-04-10 05:11 | CON ---
DATE: 04/09/2017 LOCATION: The patient seen earlier today in room 373, bed 2. CHIEF COMPLAINT: Low blood sugar x1 day duration. HISTORY OF PRESENT ILLNESS: This is a 51-year-old male with past medical history significant for obesity with a BMI of 33, coronary artery disease, pancreatitis, end-stage renal disease on hemodialysis, history of gastroenteritis, history of asthma, history of diabetes mellitus with nephropathy and retinopathy and history of cardiac cath with stent placement, cholecystectomy, and left arm fistula. HE IS ALLERGIC TO MOXIFLOXACIN, PENICILLIN, AND INSULIN, admitted to Emergency Room with a diagnosis of refractory hypoglycemia and the patient is seen in the Emergency Room yesterday by and the patient was found unresponsive at home. Today, the patient was found responsive. He denies any fever, any chills, and no nausea or vomiting. No chest pain, abdominal pain. No diarrhea or constipation. PAST MEDICAL HISTORY: Significant for obesity with BMI of 33; end-stage renal disease, on hemodialysis; coronary artery disease; asthma; pancreatitis; diabetes; nephropathy, kidney stones and retinopathy. PAST SURGICAL HISTORY: Left corneal transplant, left arm fistula, cholecystectomy and cardiac cath with stent placement. ALLERGIES: THE PATIENT IS ALLERGIC TO MOXIFLOXACIN, PENICILLIN, AND INSULIN. CURRENT MEDICATIONS: At home are reviewed include PhosLo, Neurontin, Lasix, and insulin. PHYSICAL EXAMINATION GENERAL: The patient is in bed. VITAL SIGNS: Temperature of 97, in ER the patient's temperature of 93.5, pulse of 89, respiratory rate of 20 with the blood pressure of 140/70. HEENT: Unremarkable. NECK: Supple. LUNGS: Decreased breath sounds. HEART: Normal S1 and S2. ABDOMEN: Soft, nontender. No rebound or guarding. LABORATORY DATA: Reveals a white count of 3.7, hemoglobin of 10, platelets of 115. Coagulation is noted. Blood gases are reviewed. Chemistry reveals a BUN of 49, creatinine of 7.0. LFTs are normal. Urinalysis is unremarkable. Influenza is negative. Laboratory examination is noted. Chest x-ray with congestion. The patient has a pelvic CAT scan which reveals no fractures by Dr. Kevan Dobbs. ASSESSMENT AND PLAN: This is a 51-year-old male with obesity with BMI of 33, coronary artery disease, end-stage renal disease, pancreatitis, diabetes, asthma, and history of kidney stones, presenting with hypothermia, leukopenia, and hypoglycemia with systemic inflammatory response syndrome, must rule out infectious causes with hypoglycemia. We will order phillips cultures and give a dose of vancomycin, meropenem, pending initial workup and the patient clinically at this point is nontoxic appearing and will treat with antibiotics, pending initial workup result and culture results. Jaspreet Forbes MD
--- NOTE | 2017-04-10 06:33 | CON ---
DATE: 04/09/2017 PULMONARY CONSULTATION REFERRING PHYSICIAN: Diana Kessler MD REASON FOR CONSULT: Chronic obstructive lung disease, sleep apnea syndrome, admitted with unresponsiveness. HISTORY OF PRESENT ILLNESS: This is a 51-year-old gentleman well known to me from office in previous admissions with renal failure dialysis dependent, insulin dependent diabetes, hypertension, coronary artery disease, history of left corneal transplant, cardiac stent, obstructive sleep apnea syndrome, who was found unresponsive by the family brought into ER, found to have a blood sugar of 40, got D50, but took a while for him into become awake and alert, presently admitted to the hospital, sitting at the side of the bed, feels much better. He had x-ray of the right upper and lower extremities, which is negative for any fracture, but has some skin ecchymotic areas. No significant cough,no sputum production. No nausea, no vomiting, and no diarrhea. PAST MEDICAL HISTORY: As per history of present illness. ALLERGIES: TO ASPART INSULIN, ALSO ALLERGIC TO MOXIFLOXACIN, ALSO ALLERGIC TO PENICILLIN. SOCIAL HISTORY: Nonsmoker, nondrinker. FAMILY HISTORY: Positive for asthma, renal failure, sleep apnea. MEDICATIONS: He is on albuterol XL nebulizer q.12 hours, Ambien 5 mg at bedtime p.r.n., hydralazine 25 mg twice a day, Brovana inhaled twice a day, Claritin 10 mg daily, Cozaar 50 mg daily, vitamin D 50,000 units weekly, Flomax 0.4 mg daily, insulin coverage, Lasix 40 mg twice a day, Lipitor 40 mg daily, metoprolol tartarate 50 mg daily, Lovaza 1 g p.o. twice a day, meropenem 250 mg q.12 hours, Neurontin 100 mg daily, PhosLo before meals, Plavix 75 mg daily, Pulmicort inhaled twice a day, Singulair 10 mg daily, TriCor 145 mg daily, and Ultram 50 mg 3 times a day p.r.n. REVIEW OF SYSTEMS: At present, there is no headache and no rhinitis. Shortness of breath with exertion. No nausea, no vomiting, no diarrhea. No leg pain. No leg swelling. PHYSICAL EXAMINATION: GENERAL: Sitting at side of the bed in no acute distress. VITAL SIGNS: Temperature is 98, heart rate is 88, respiratory rate is 20, blood pressure is 173/87, and pulse oximetry 98% on nasal cannula. HEENT: Moist mucous membrane. Crowded airway. Mallampati score is IV. NECK: Supple. No JVD. LUNGS: Has a fair airflow with rhonchi. HEART: S1 and S2. ABDOMEN: Soft and nontender. No thyromegaly. EXTREMITIES: There is no edema. NEUROLOGICALLY: Awake, alert, follow simple commands. LABORATORY DATA: Shows hemoglobin of 10.4, hematocrit 33.6, WBC 2.7, and platelet is 115. INR 1.17. PTT is 30. ABG show pH 3.36, pCO2 of 64, O2 of 89 that was on room air. On arrival in ER, blood sugar was , sodium 140, potassium 3.3, chloride 94, bicarbonate 31, BUN 49, creatinine 7.0, glucose 83, calcium 8.6, AST 46, ALT 32, alkaline phosphatase is 43, and albumin is 4.0. Microbiology, blood culture, and urine culture, there is no growth. IMPRESSION AND PLAN: Hypoglycemia episode, there was loss of consciousness, chronic obstructive lung disease, insulin dependent diabetes, obstructive sleep apnea syndrome, history of coronary artery disease, history of coronary stent, diabetes, hypertension. I spoke to the patient in details. I spoke about insulin use and incident of hypoglycemia episode. The patient especially with eating. He expressed understanding. We will continue BiPAP sleeping, keep at 45 degrees, bronchodilator, gastric prophylaxis, and fall precautions. Thank you and we will follow with you. Jarred Escalera MD
[2017-04-10 07:14] LABS: HEMOGLOBIN 9.4 g/dL (14.0-18.0); IRON 180 ug/dL (45-180); MEAN CELL VOLUME 93.5 fl (80.0-105.0); MEAN CORPUSCULAR HEMOGLOBIN 29.3 pg (25.0-35.0); MEAN CORPUSCULAR HGB CONC 31.3 g/dl (31.0-37.0); RBC 3.21 [, 10^6/uL] (3.5-6.1); RED CELL DISTRIBUTION WIDTH 14.9 % (11.5-14.5); WHITE BLOOD COUNT 4.2 [, 10^3/ul] (4.5-11.0)
[2017-04-10 07:24] LABS: % IRON SATURATION 71 % (20-55); CALCIUM 7.3 mg/dL (8.4-10.5); TOTAL IRON BINDING CAPACITY 253 ug/dL (261-462)
[2017-04-10] MEDS: Albuterol 0.083% Inhal Sol (2.5 mg/3 mL) UD IH SCH ×2 (07:57→19:59)
[2017-04-10] MEDS: Arformoterol 15 mcg/2 ml Inh Sol IH SCH ×2 (07:57→19:59)
[2017-04-10] MEDS: Budesonide 0.5 mg/2 ml Inhal Susp UD IH SCH ×2 (07:58→19:59)
[2017-04-10] MEDS ORDERED: Omega-3-Acid Ethyl Esters 1 GM Cap PO SCH (10:00)
[2017-04-10 11:08] VITALS: RESP 18
[2017-04-10 11:36] LABS: MAGNESIUM 1.9 mg/dL (1.7-2.2)
[2017-04-10 11:59] LABS: FOLATE 5.6 ng/mL
--- NOTE | 2017-04-10 12:13 | CP.PCM.PN ---
Subjective - Date & Time of Evaluation Date of Evaluation: 04/10/17 Time of Evaluation: 11:40 Objective - Vital Signs/Intake and Output Vital Signs (last 24 hours): Temp Pulse Resp BP Pulse Ox 98.8 F 82 18 169/77 H 99 04/10/17 09:00 04/10/17 09:46 04/10/17 09:00 04/10/17 09:46 04/10/17 09:00 Intake and Output: 04/10/17 04/10/17 06:59 18:59 Intake Total 560 Balance 560 - Medications Medications: Current Medications Albuterol Sulfate (Albuterol 0.083% Inhal Jaimie (2.5 Mg/3 Ml) Ud) 2.5 mg IH [id number] [facility] Last Admin: 04/10/17 07:57 Dose: 2.5 mg Arformoterol Tartrate (Brovana) 15 mcg IH [id number] [facility] Last Admin: 04/10/17 07:57 Dose: 15 mcg Atorvastatin Calcium (Lipitor) 40 mg PO HS [facility] Last Admin: 04/09/17 22:15 Dose: 40 mg Budesonide (Pulmicort Respules) 0.5 mg IH [id number] [facility] Last Admin: 04/10/17 07:58 Dose: 0.5 mg Calcium Acetate (Phoslo) 1,334 mg PO AC [facility] Last Admin: 04/10/17 08:00 Dose: 1,334 mg Clopidogrel Bisulfate (Plavix) 75 mg PO DAILY [facility] Last Admin: 04/10/17 09:45 Dose: 75 mg Ergocalciferol (Drisdol 50,000 Intl Units Cap) 1 cap PO WED [facility] Fenofibrate (Tricor) 145 mg PO DAILY [facility] Last Admin: 04/10/17 09:45 Dose: 145 mg Furosemide (Lasix) 40 mg PO BID [facility] Last Admin: 04/10/17 09:46 Dose: 40 mg Gabapentin (Neurontin) 100 mg PO DAILY [facility] Last Admin: 04/10/17 09:45 Dose: 100 mg Hydralazine HCl (Apresoline) 50 mg PO BID [facility] Last Admin: 04/10/17 09:46 Dose: 50 mg Meropenem 250 mg/ Sodium (Chloride) 100 mls @ 100 mls/hr IVPB Q12H [facility] PRN Reason: Protocol Stop: 04/18/17 17:46 Last Admin: 04/10/17 05:43 Dose: 100 mls/hr Insulin Human Regular (Humulin R Low) 0 units SC [facility] PRN Reason: Protocol Last Admin: 04/10/17 07:59 Dose: 1 units Latanoprost (Xalatan Opht) 0.05 ml OU HS [facility] Last Admin: 04/09/17 22:17 Dose: 0.05 ml Loratadine (Claritin) 10 mg PO DAILY [facility] Last Admin: 04/10/17 09:45 Dose: 10 mg Losartan Potassium (Cozaar) 100 mg PO DAILY [facility] Last Admin: 04/10/17 09:45 Dose: 100 mg Metoprolol Tartrate (Lopressor) 50 mg PO DAILY [facility] Last Admin: 04/10/17 09:46 Dose: 50 mg Montelukast Sodium (Singulair) 10 mg PO HS [facility] Last Admin: 04/09/17 22:15 Dose: 10 mg [id number] Ethyl Esters (Lovaza) 1 gm PO BID [facility] Last Admin: 04/10/17 09:45 Dose: 1 gm Tamsulosin HCl (Flomax) 0.4 mg PO DAILY [facility] Last Admin: 04/10/17 09:45 Dose: 0.4 mg Tramadol HCl (Ultram) 50 mg PO TID PRN PRN Reason: Pain, moderate (4-7) Stop: 04/23/17 21:32 Last Admin: 04/10/17 00:12 Dose: 50 mg Zolpidem Tartrate (Ambien) 5 mg PO HS PRN; Protocol PRN Reason: Insomnia Last Admin: 04/09/17 22:16 Dose: 5 mg - Labs Labs: 04/10/17 06:00 04/10/17 06:00 PT 13.5 SECONDS (9.4-12.5) H 04/08/17 10:15 INR 1.17 (0.93-1.08) H 04/08/17 10:15 APTT 30.3 Seconds (25.1-36.5) 04/08/17 10:15
[2017-04-10 17:10] VITALS: BP 183/72
--- NOTE | 2017-04-10 17:27 | CP.PCM.PN ---
Subjective - Date & Time of Evaluation Date of Evaluation: 04/10/17 Time of Evaluation: 11:25 - Subjective Subjective: Comfortable in bed, no fevers, not in distress. Objective - Vital Signs/Intake and Output Vital Signs (last 24 hours): Temp Pulse Resp BP Pulse Ox 97.2 F L 82 20 169/77 H 98 04/10/17 06:00 04/10/17 09:46 04/10/17 06:00 04/10/17 09:46 04/10/17 06:00 Intake and Output: 04/10/17 04/10/17 06:59 18:59 Intake Total 560 Balance 560 - Medications Medications: Current Medications Albuterol Sulfate (Albuterol 0.083% Inhal Jaimie (2.5 Mg/3 Ml) Ud) 2.5 mg IH [id number] [facility] Last Admin: 04/10/17 07:57 Dose: 2.5 mg Arformoterol Tartrate (Brovana) 15 mcg IH [id number] [facility] Last Admin: 04/10/17 07:57 Dose: 15 mcg Atorvastatin Calcium (Lipitor) 40 mg PO HS [facility] Last Admin: 04/09/17 22:15 Dose: 40 mg Budesonide (Pulmicort Respules) 0.5 mg IH [id number] [facility] Last Admin: 04/10/17 07:58 Dose: 0.5 mg Calcium Acetate (Phoslo) 1,334 mg PO AC [facility] Last Admin: 04/10/17 08:00 Dose: 1,334 mg Clopidogrel Bisulfate (Plavix) 75 mg PO DAILY [facility] Last Admin: 04/10/17 09:45 Dose: 75 mg Ergocalciferol (Drisdol 50,000 Intl Units Cap) 1 cap PO WED [facility] Fenofibrate (Tricor) 145 mg PO DAILY [facility] Last Admin: 04/10/17 09:45 Dose: 145 mg Furosemide (Lasix) 40 mg PO BID [facility] Last Admin: 04/10/17 09:46 Dose: 40 mg Gabapentin (Neurontin) 100 mg PO DAILY [facility] Last Admin: 04/10/17 09:45 Dose: 100 mg Hydralazine HCl (Apresoline) 50 mg PO BID [facility] Last Admin: 04/10/17 09:46 Dose: 50 mg Meropenem 250 mg/ Sodium (Chloride) 100 mls @ 100 mls/hr IVPB Q12H [facility] PRN Reason: Protocol Stop: 04/18/17 17:46 Last Admin: 04/10/17 05:43 Dose: 100 mls/hr Insulin Human Regular (Humulin R Low) 0 units SC ACHS [facility] PRN Reason: Protocol Last Admin: 04/10/17 07:59 Dose: 1 units Latanoprost (Xalatan Opht) 0.05 ml OU HS [facility] Last Admin: 04/09/17 22:17 Dose: 0.05 ml Loratadine (Claritin) 10 mg PO DAILY [facility] Last Admin: 04/10/17 09:45 Dose: 10 mg Losartan Potassium (Cozaar) 100 mg PO DAILY [facility] Last Admin: 04/10/17 09:45 Dose: 100 mg Metoprolol Tartrate (Lopressor) 50 mg PO DAILY [facility] Last Admin: 04/10/17 09:46 Dose: 50 mg Montelukast Sodium (Singulair) 10 mg PO HS [facility] Last Admin: 04/09/17 22:15 Dose: 10 mg [id number] Ethyl Esters (Lovaza) 1 gm PO BID [facility] Last Admin: 04/10/17 09:45 Dose: 1 gm Tamsulosin HCl (Flomax) 0.4 mg PO DAILY [facility] Last Admin: 04/10/17 09:45 Dose: 0.4 mg Tramadol HCl (Ultram) 50 mg PO TID PRN PRN Reason: Pain, moderate (4-7) Stop: 04/23/17 21:32 Last Admin: 04/10/17 00:12 Dose: 50 mg Zolpidem Tartrate (Ambien) 5 mg PO HS PRN; Protocol PRN Reason: Insomnia Last Admin: 04/09/17 22:16 Dose: 5 mg - Labs Labs: 04/10/17 06:00 04/10/17 06:00 PT 13.5 SECONDS (9.4-12.5) H 04/08/17 10:15 INR 1.17 (0.93-1.08) H 04/08/17 10:15 APTT 30.3 Seconds (25.1-36.5) 04/08/17 10:15 - Constitutional Appears: Non-toxic - Head Exam Head Exam: NORMAL INSPECTION - ENT Exam ENT Exam: Mucous Membranes Moist - Neck Exam Neck Exam: absent: Meningismus - Respiratory Exam Respiratory Exam: Decreased Breath Sounds - Cardiovascular Exam Cardiovascular Exam: +S1, +S2 - GI/Abdominal Exam GI & Abdominal Exam: Soft. absent: Tenderness Assessment and Plan - Assessment and Plan (Free Text) Plan: Assessment systemic inflammatory response syndrome probably acute stress reaction from hypoglycemia, with no obvious source of infection history of sepsis with gastroenteritis and C. diff. associated diarrhea, clinically improving ESRD on HD DM obesity CAD S/P PCI retinopathy history of pancreatitis Plan blood and urine cx have been negative, imaging has been negative will d/c antibiotics and observe
[2017-04-10 18:29] VITALS: PULSE 84; TEMP 98; O2SAT 98
--- NOTE | 2017-04-10 23:56 | CON ---
DATE: 04/10/2017 REASON FOR CONSULTATION: End-stage renal disease, anemia, severe hypertension. HISTORY OF PRESENT ILLNESS: This is a 51-year-old young male, presented to the emergency room yesterday, it is around the . He was brought to the emergency room by family members who found him unresponsive. His fingerstick was found to be below 40, he was given D50 in the field, subsequently fingerstick went up to 221. He had been in the emergency room two days prior with dizziness and nausea. He was diagnosed with gastritis and sent home. Repeat fingerstick in the emergency room was 25. The patient was admitted for refractory hypoglycemia. The patient is on dialysis on Monday, Monday and Monday. He had missed dialysis on Monday. He was dialyzed on Monday prior to presentation. Consultation is requested for severe hypertension and need for dialysis. PAST MEDICAL AND SURGICAL HISTORY: Brittle diabetes, hypertension, CAD, PCI, cholecystectomy, left corneal transplant, asthma, COPD, diabetic neuropathy, retinopathy. FAMILY HISTORY: Hypertension, diabetes, CAD, and ESRD in mom. SOCIAL HISTORY: No smoking, no alcohol use, no IV drug abuse. ALLERGIES: PENICILLIN. MEDICATIONS AT HOME: Flomax, Ambien, Plavix, fenofibrate, Zyrtec, Lasix, Neurontin, glipizide, metoprolol, Lovaza, Crestor, PhosLo, Cozaar, hydralazine. REVIEW OF SYSTEMS: At present, the patient denies any chest pain, shortness of breath. Denies any abdominal pain, nausea, vomiting. Denies any urinary complaints. PHYSICAL EXAMINATION: GENERAL: Middle-aged male, sitting in chair. VITAL SIGNS: Blood pressure 169/77, heart rate 82, respiratory date 18, and temperature 98.8. HEENT: Normocephalic, atraumatic. Positive pallor, no icterus. NECK: Supple, no JVD. LUNGS: Bilateral equal air entry, bilateral equal expansion. CARDIAC: S1 and S2, regular rate and rhythm, no murmur, no rub. ABDOMEN: Obese, distended, soft, nontender, bowel sounds present. EXTREMITIES: No lower extremity edema, chronic stasis changes, dry skin. LABORATORY DATA: WBC 4.2, hemoglobin 9.4, hematocrit 30, platelets 123. Sodium 137, potassium 4.2, chloride 100, CO2 of 23, BUN 85, creatinine 9.3, glucose 166, calcium 7.3, albumin 4.0, phosphorus 7.9, magnesium 1.9, iron saturation 71, iron 180, TSH 4.9. Urinalysis yellow, clear, pH 7.0, specific gravity 1.015, protein greater than 300, blood small, nitrite negative, leukocyte esterase negative. Influenza negative. Blood culture no growth so far. ASSESSMENT: 1. Severe hypoglycemia, brittle diabetes. 2. Hypertension. 3. Coronary artery disease, history of percutaneous coronary intervention. 4. End-stage renal disease. 5. Anemia of chronic kidney disease. 6. Secondary hyperparathyroidism, hypocalcemia, hyperphosphatemia. PLAN 1. Check intact PTH levels. 2. Continue current antihypertensives hydralazine plus Cozaar. 3. Check hemoglobin A1c. 4.. Discontinue oral hypoglycemics. 5. Continue insulin coverage. 6. Endocrinology evaluation. 7. Continue PENNY on dialysis. 8. Continue phosphate binders. 9. ? Continue empiric antibiotics. Eva Malcolm MD
--- NOTE | 2017-04-11 00:10 | PN ---
DATE: 04/10/2017 PULMONARY PROGRESS NOTE REFERRING PHYSICIAN: Dr. Kessler. SUBJECTIVE: He is sitting side of the bed. Night was unremarkable, tolerated BiPAP well. Feels better. No cough. No sputum production. No nausea, no vomiting, no diarrhea. No leg pain or leg swelling. OBJECTIVE: GENERAL: In no acute distress. VITAL SIGNS: Temperature is 98, heart rate is 84, respiratory rate is 18, blood pressure 183/72, pulse ox 98% on room air. HEENT: Moist mucous membranes. Crowded airway. Mallampati score is IV. NECK: Supple. No JVD. LUNGS: Has fair airflow with few rhonchi. HEART: S1 and S2. ABDOMEN: Soft, nontender. No organomegaly. EXTREMITIES: There is no edema. NEUROLOGIC: Awake and alert. Follows simple commands. MEDICATIONS: Reviewed and no new changes in medication reported. LABORATORY DATA: Shows hemoglobin 9.4, hematocrit 30.0, WBC 4.2, platelet is 123, sodium 137, potassium 4.2, chloride 100, bicarbonate 23, BUN 85, creatinine 9.3, glucose is 166, hemoglobin A1c is not available, calcium is 7.3, iron is 180, triglyceride 191, cholesterol is 111. Vitamin B12 312 with folate 5.6. Influenza A and B is negative. Microbiology, blood culture, urine culture, there is no growth. IMPRESSION AND PLAN: Hypoglycemia episode end up with episode of unconsciousness, chronic obstructive lung disease, insulin-dependent diabetes, obstructive sleep apnea syndrome, coronary artery disease, history of coronary stent, hypertension. I spoke to nursing staff, spoke to the patient, may go home. I spoke to the patient about insulin oral hypoglycemic has relation to the meal, cannot skip meal while taking insulin. The patient expressed understanding. Will continue BiPAP while sleeping, bronchodilator, fall precaution. Jarred Escalera MD
[2017-04-12] MEDS ORDERED: Cholecalciferol 1,000 INTLU TAB PO SCH (10:00)
[2017-04-12] MEDS ORDERED: Ergocalciferol 50,000 Intl Units Cap PO SCH (10:00)
== END 2017-04-10 20:14 | disposition home or self-care (01) | DRG 638 ==
LOC: ED 09:43 → ERH 15:58 → 3RSO 19:19
PROVIDERS: ADMIT Internal Medicine; ATTEND Internal Medicine
PROC: 5A09357 Assistance with Respiratory Ventilation, Less than 24 Consecutive Hours, Continuous Positive Airway Pressure (ICD-10-PCS; principal; 2017-04-09)
PROC: 5A1D70Z Performance of Urinary Filtration, Intermittent, Less than 6 Hours Per Day (ICD-10-PCS; 2017-04-10)
DX: E11.649 Type 2 diabetes mellitus with hypoglycemia without coma (principal); I13.2 Hypertensive heart and chronic kidney disease with heart failure and with stage 5 chronic kidney disease, or end stage renal disease; N18.6 End stage renal disease; E83.39 Other disorders of phosphorus metabolism; E83.51 Hypocalcemia; E11.21 Type 2 diabetes mellitus with diabetic nephropathy; E11.40 Type 2 diabetes mellitus with diabetic neuropathy, unspecified; I50.9 Heart failure, unspecified; G47.33 Obstructive sleep apnea (adult) (pediatric); I25.10 Atherosclerotic heart disease of native coronary artery without angina pectoris; J44.9 Chronic obstructive pulmonary disease, unspecified; N25.81 Secondary hyperparathyroidism of renal origin; E11.22 Type 2 diabetes mellitus with diabetic chronic kidney disease; K29.70 Gastritis, unspecified, without bleeding; E11.319 Type 2 diabetes mellitus with unspecified diabetic retinopathy without macular edema; D63.1 Anemia in chronic kidney disease; E66.9 Obesity, unspecified; Z99.2 Dependence on renal dialysis; Z68.33 Body mass index [BMI] 33.0-33.9, adult; Z95.5 Presence of coronary angioplasty implant and graft; Z79.4 Long term (current) use of insulin; Z94.7 Corneal transplant status; Z88.0 Allergy status to penicillin

== ENCOUNTER 2017-06-11 07:10 | Inpatient (IN) | payer MEDICARE, OTHER ==
[2017-06-11 07:51] LABS: BASO # 0.04 K/mm3 (0.0-2.0); BASO % 0.8 % (0.0-3.0); EOS # 0.1 (0.0-0.7); GRAN # 2.18 (1.4-6.5); GRAN % 46.2 % (50.0-68.0); HEMOGLOBIN 9.1 g/dL (14.0-18.0); LYMPH # 1.7 (1.2-3.4); LYMPH % 36.2 % (22.0-35.0); MEAN CELL VOLUME 93.5 fl (80.0-105.0); MEAN CORPUSCULAR HEMOGLOBIN 29.4 pg (25.0-35.0); MEAN CORPUSCULAR HGB CONC 31.5 g/dl (31.0-37.0); MEAN PLATELET VOLUME 11.1 fl (7.0-11.0); MONO # 0.7 (0.1-0.6); MONO % 13.8 % (1.0-6.0); RBC 3.09 10^6/uL (3.5-6.1); RED CELL DISTRIBUTION WIDTH 13.9 % (11.5-14.5); WHITE BLOOD COUNT 4.7 10^3/ul (4.5-11.0)
[2017-06-11 08:10] LABS: INR 1.22 (0.93-1.08); PROTHROMBIN TIME 14.1 SECONDS (9.4-12.5)
[2017-06-11 08:11] LABS: ALB/GLOB RATIO 0.9 (1.1-1.8); ALBUMIN 3.7 g/dL (3.0-4.8); CALCIUM 8.7 mg/dL (8.4-10.5)
--- NOTE | 2017-06-11 08:20 | ED PDOC ---
Arrival/HPI - General Chief Complaint: Chest Pain Time Seen by Provider: 06/11/17 07:15 Historian: Patient - History of Present Illness Narrative History of Present Illness (Text): 06/11/17 07:20 A 52 year old male, whose past medical history includes ESRD (dialysis M, W, F, last session done 2 days ago, full treatment no complications), s/p pci, hypertension, diabetes, CAD, s/p cholecystectomy, left cornea transplant, cardiac stents and bronchial asthma, presents to the emergency department complaining of dizziness which began last night. Patient reports also experiencing chest pain last night as well, however experiences no pain at this time. States may have had possible syncopal episode last night. He notes blood pressure was 110/40 yesterday at home. Typical blood pressure if systolic of 180. Patient mentions medications have been recently discontinued due to low blood pressure, which has been consistently fluctuating. Patient denies any fever, shortness of breath, cough, or any other complaints. PMD: Dr. Kessler Time/Duration: Other (last night) Symptom Onset: Sudden Symptom Course: Unchanged Past Medical History - Provider Review Nursing Documentation Reviewed: Yes - Past History Past History: No Previous - Infectious Disease Hx of Infectious Diseases: None - Tetanus Immunization Tetanus Immunization: Up to Date - Reproductive Currently Lactating: No - Cardiac Hx Cardiac Disorders: Yes Hx Angina: Yes Hx Congestive Heart Failure: Yes Hx [place]: Yes Hx Hypertension: Yes Other/Comment: s/p PTCA LAD 3-4 years , Hx of PTCA RCA 10/2014. repeat Cath .. Non Obst CAd - Pulmonary Hx Chronic Obstructive Pulmonary Disease (COPD): Yes - Neurological Hx Transient Ischemic Attacks (TIA): Yes (3 years ago) - HEENT Hx HEENT Disorder: Yes (BILATERAL EYE WITH BLURRY VISION) Hx Cataracts: Yes (HAD SX 05/29/12) Other/Comment: left eye cornea transplant,RENAL RETINOPATHY, glasses - Renal Hx Renal Disorder: Yes Hx Dialysis: Yes Type of Dialysis Access: left arm Date of Last Dialysis Treatment: 06/09/17 Hx Kidney Stones: Yes (04/03) - Endocrine/Metabolic Hx Diabetes Mellitus Type 1: Yes - Hematological/Oncological Hx Anemia: Yes (With transfusions) - Integumentary Hx Dermatological Disorder: Yes (BILATERAL EDEMA TO UPPER AND LE,SKIN DRYNESS) - Musculoskeletal/Rheumatological Hx Unsteady Gait: Yes Other/Comment: Use of cane - Gastrointestinal Hx Gastrointestinal Disorders: (hx pancreatitis) Hx Gall Bladder Disease: Yes (CHOLECYSTECTOMY) Hx Gastroesophageal Reflux: Yes Hx Liver Failure: Yes (CKD) Hx Pancreatitis: Yes - Genitourinary/Gynecological Hx Genitourinary Disorders: Yes - Psychiatric Hx Psychophysiologic Disorder: No Hx Substance Use: No - Surgical History Hx Cholecystectomy: Yes (08/15/12) Hx Coronary Stent: Yes (x1) Other/Comment: FISTULA - Anesthesia Hx Anesthesia: Yes Hx Anesthesia Reactions: No Hx Malignant Hyperthermia: No - Suicidal Assessment Feels Threatened In Home Enviroment: No Family/Social History - Physician Review Nursing Documentation Reviewed: Yes Family/Social History: No Known Family HX Smoking Status: Never Smoked Hx Alcohol Use: No Hx Substance Use: No Hx Substance Use Treatment: No Allergies/Home Meds Allergies/Adverse Reactions: Allergies insulin aspart [From Novolog] Allergy (Intermediate, Verified 06/11/17 07:23) ITCHING ANY INSULIN THAT STARTS WITH NOV- moxifloxacin Allergy (Intermediate, Verified 06/11/17 07:23) ITCHING Penicillins Allergy (Intermediate, Verified 06/11/17 07:23) ITCHING Review of Systems - Physician Review All systems were reviewed & negative as marked: Yes - Review of Systems Constitutional: absent: Fevers Respiratory: absent: SOB, Cough Cardiovascular: Syncope (possible syncopal episode last night, according to patient). absent: Chest Pain (patient states experiencing chest pain last night , currently none at this time) Neurological: Dizziness Physical Exam Vital Signs Reviewed: Yes Vital Signs Temp Pulse Resp BP Pulse Ox 06/11/17 10:49 68 17 110/46 L 100 06/11/17 09:10 98.6 F 61 18 136/67 100 06/11/17 07:24 97.8 F 62 17 135/54 L 100 Temperature: Afebrile Blood Pressure: Normal Pulse: Regular Respiratory Rate: Normal Appearance: Positive for: Well-Appearing Pain Distress: None Mental Status: Positive for: Alert and Oriented X 3 Finger Stick Blood Glucose: 208 - Systems Exam Head: Present: Atraumatic, Normocephalic Pupils: Present: PERRL Extroacular Muscles: Present: EOMI Conjunctiva: Present: Normal Mouth: Present: Moist Mucous Membranes Neck: Present: Normal Range of Motion Respiratory/Chest: Present: Clear to Auscultation, Good Air Exchange. No: Respiratory Distress, Accessory Muscle Use Cardiovascular: Present: Regular Rate and Rhythm, Murmurs (systolic) Abdomen: Present: Normal Bowel Sounds. No: Tenderness, Distention, Peritoneal Signs Back: Present: Normal Inspection Upper Extremity: Present: Normal Inspection. No: Cyanosis, Edema Lower Extremity: Present: Normal Inspection. No: Edema Neurological: Present: GCS=15, CN II-XII Intact, Speech Normal Skin: Present: Warm, Dry, Normal Color. No: Rashes Psychiatric: Present: Alert, Oriented x 3, Normal Insight, Normal Concentration Medical Decision Making ED Course and Treatment: 06/11/17 07:25 Impression: 52 year old male with dizziness. Physical exam shows systolic murmur , otherwise normal examination. Plan: -- EKG -- Chest X-ray -- Labs -- Aspirin -- Zofran -- Urine Culture -- Urinalysis -- Reassess and disposition Prior Visits: Notes and results from previous visits were reviewed. Patient was last seen in the emergency department on 04/08/2017 for low blood sugar and unresponsiveness. Patient was admitted. Progress Notes: EKG: Ordered, reviewed, and independently interpreted the EKG. Rate : 64 BPM Rhythm : NSR Interpretation : Left axis deviation, first degree AV block. Comparison : No previous EKG for comparison. 06/11/17 08:[address] Monge, whom is covering for Dr. Kessler. Has reviewed patient's case and patient will be admitted to telemetry under service. 06/11/2017 10:16 Chest X-ray IMPRESSION: Potential residual or recurrent pulmonary venous congestion in the interval. No infiltrate, pleural effusion or pneumothorax identified. Stable cardiomegaly. Dictator: Lamont Ortega MD - Lab Interpretations Lab Results: 06/11/17 07:30 06/11/17 07:30 Lab Results 06/11/17 07:30: NT-Pro-B Natriuret Pep 15171 H 06/11/17 07:30: POC Glucose (mg/dL) 208 H 06/11/17 07:30: Sodium 138, Potassium 4.5, Chloride 95 L, Carbon Dioxide 30, Anion Gap 17, BUN 55 H, Creatinine 9.1 H*, Est GFR ( Amer) 7, Est GFR ( Non-Af Amer) 6, Random Glucose 204 H, Calcium 8.7, Magnesium 2.3 H, Total Bilirubin 0.5, AST 134 H D, ALT 67 H, Alkaline Phosphatase 48, Lactate Dehydrogenase 776 H, Total Creatine Kinase 505 H, CK-MB (CK-2) 6.4 H, CK-MB (CK- 2) % 1.3 L, Troponin I 0.28 H* D, Total Protein 7.7, Albumin 3.7, Globulin 4.0, Albumin/Globulin Ratio 0.9 L 06/11/17 07:30: PT 14.1 H, INR 1.22 H, APTT 29.0 06/11/17 07:30: WBC 4.7, RBC 3.09 L, Hgb 9.1 L, Hct 28.9 L, MCV 93.5, MCH 29.4, MCHC 31.5, RDW 13.9, Plt Count 182, MPV 11.1 H, Gran % 46.2 L, Lymph % (Auto) 36.2 H, [place] % (Auto) 13.8 H, Eos % (Auto) 3.0, Baso % (Auto) 0.8, Gran # 2.18, Lymph # (Auto) 1.7, [place] # (Auto) 0.7 H, Eos # (Auto) 0.1, Baso # (Auto) 0.04 I have reviewed the lab results: Yes - RAD Interpretation Radiology Orders: 06/11/17 07:25 CHEST PORTABLE [RAD] Stat - Medication Orders Current Medication Orders: Calcium Acetate (Phoslo) 667 mg PO [facility] Last Admin: 06/11/17 17:43 Dose: 667 mg Clopidogrel Bisulfate (Plavix) 75 mg PO DAILY [facility] Insulin Human Regular (Humulin R Low) 0 units SC [facility] PRN Reason: Protocol Last Admin: 06/11/17 17:48 Dose: Not Given Non-Admin Reason: Blood Sugar Parameter MAR Blood Glucose Document 06/11/17 17:48 MF (Rec: 06/11/17 17:48 [id number]) Blood Glucose Finger Stick Blood Glucose (70-120) 75 Metoprolol Tartrate (Lopressor) 25 mg PO BID [facility] Last Admin: 06/11/17 17:43 Dose: 25 mg MAR Pulse and Blood Pressure Document 06/11/17 17:43 MF (Rec: 06/11/17 17:46 MF [id number]) Pulse Pulse Rate (60-90) 69 Blood Pressure Blood Pressure (100/60-150/90) 133/56 Vitamin B Complex/Vit C/Folic Acid (Nephro-Eva) 1 tab PO 0800 [facility] Discontinued Medications Aspirin (Aspirin) 325 mg PO STAT STA Stop: 06/11/17 07:27 Last Admin: 06/11/17 07:34 Dose: 325 mg Ondansetron HCl (Zofran Inj) 4 mg IVP STAT STA Stop: 06/11/17 07:27 Last Admin: 06/11/17 07:34 Dose: 4 mg IVP Administration Document 06/11/17 07:34 ABIGAIL (Rec: 06/11/17 07:34 ABIGAIL [id number]) Charges for Administration # of IVP Administrations 1 - Scribe Statement The provider has reviewed the documentation as recorded by the Fransisca Marsh Provider Scribe Attestation: All medical record entries made by the Scribe were at my direction and personally dictated by me. I have reviewed the chart and agree that the record accurately reflects my personal performance of the history, physical exam, medical decision making, and the department course for this patient. I have also personally directed, reviewed, and agree with the discharge instructions and disposition. Disposition/Present on Arrival - Present on Arrival Any Indicators Present on Arrival: No History of DVT/PE: No History of Uncontrolled Diabetes: Yes Urinary Catheter: No History of Decub. Ulcer: No History Surgical Site Infection Following: None - Disposition Have Diagnosis and Disposition been Completed?: Yes Diagnosis: Renal failure, Chest pain, Dizziness Disposition: HOSPITALIZED Disposition Time: 08:30 Condition: FAIR
[2017-06-11 08:22] LABS: CK MB% 1.3 % (2.5-3.0); CK-MB 6.4 ng/mL (0.0-3.6); TROPONIN I 0.28 ng/mL
--- NOTE | 2017-06-11 10:17 | RAD ---
HISTORY: chest pain COMPARISON: Portable chest 04/08/2017. FINDINGS: LUNGS: No active pulmonary disease. PLEURA: No significant pleural effusion identified, no pneumothorax apparent. CARDIOVASCULAR: Cardiomegaly appears stable. Likely nearly normalized pulmonary venous congestion with limited residual noted or recurrence. OSSEOUS STRUCTURES: No significant abnormalities. VISUALIZED UPPER ABDOMEN: Normal. OTHER FINDINGS: None. IMPRESSION: Potential residual or recurrent pulmonary venous congestion in the interval. No infiltrate, pleural effusion or pneumothorax identified. Stable cardiomegaly.
[2017-06-11 11:59] VITALS: BMI 32.3
[2017-06-11] MEDS: Insulin Reg-LOW-Coverage SC SCH ×2 (17:48→21:39)
--- NOTE | 2017-06-11 19:20 | CP.PCM.PN ---
Subjective - Date & Time of Evaluation Date of Evaluation: 06/11/17 Time of Evaluation: 19:20 - Subjective Subjective: Responded to RAPID RESPONSE ANNOUNCEMENT.His heart rate went down to 37/min, BP 87/34, RR 18/min, Temp:98.7*F Pulse ox 99 % on 2L/min.He was cold and clammy. He complained of chest pain , sob, sweating. After a bolus of 250 CC NS, atropine 0.5mg IV , BP went up to 94/46mmHg. Last troponin is 0.28. FS BS:205 mg%. 52 year old male was admitted with dizziness, syncope, chest pain. Has PMH CHF,HTN, CAD,angina,DM II, S/P PTCA,COPD,RENATA,obesity, anemia,bilateral eye surgery, left corneal transplant,pancreatitis, neuropathy,nephropathy, retinopathy, cholecystectomy. Objective - Vital Signs/Intake and Output Vital Signs (last 24 hours): Temp Pulse Resp BP Pulse Ox 98.7 F 69 18 133/56 L 100 06/11/17 18:00 06/11/17 18:00 06/11/17 18:00 06/11/17 18:00 06/11/17 10:49 - Medications Medications: Current Medications Calcium Acetate (Phoslo) 667 mg PO WM [facility] Last Admin: 06/11/17 17:43 Dose: 667 mg Clopidogrel Bisulfate (Plavix) 75 mg PO DAILY [facility] Insulin Human Regular (Humulin R Low) 0 units SC ACHS [facility] PRN Reason: Protocol Last Admin: 06/11/17 17:48 Dose: Not Given Metoprolol Tartrate (Lopressor) 25 mg PO BID [facility] Last Admin: 06/11/17 17:43 Dose: 25 mg Vitamin B Complex/Vit C/Folic Acid (Nephro-Eva) 1 tab PO 0800 [facility] - Labs Labs: PT 14.1 SECONDS (9.4-12.5) H 06/11/17 07:30 INR 1.22 (0.93-1.08) H 06/11/17 07:30 APTT 29.0 Seconds (25.1-36.5) 06/11/17 07:30 Most Recent Lab Values WBC 4.7 10^3/ul (4.5-11.0) 06/11/17 07:30 RBC 3.09 10^6/uL (3.5-6.1) L 06/11/17 07:30 Hgb 9.1 g/dL (14.0-18.0) L 06/11/17 07:30 Hct 28.9 % (42.0-52.0) L 06/11/17 07:30 MCV 93.5 fl (80.0-105.0) 06/11/17 07:30 MCH 29.4 pg (25.0-35.0) 06/11/17 07: MCHC 31.5 g/dl (31.0-37.0) 06/11/17 07:30 RDW 13.9 % (11.5-14.5) 06/11/17:30 Plt Count 182 10^3/uL (120.0-450.0) 06/11/17 07:30 MPV 11.1 fl (7.0-11.0) H 06/11/17 07: Gran % 46.2 % (50.0-68.0) L 06/11/17 07: Lymph % (Auto) 36.2 % (22.0-35.0) H 06/11/17 07:30 [place] % (Auto) 13.8 % (1.0-6.0) H 06/11/17 07:30 Eos % (Auto) 3.0 % (1.5-5.0) 06/11/17 07:30 Baso % (Auto) 0.8 % (0.0-3.0) 06/11/17 07:30 Gran # 2.18 (1.4-6.5) 06/11/17 07:30 Lymph # (Auto) 1.7 (1.2-3.4) 06/11/17 07:30 [place] # (Auto) 0.7 (0.1-0.6) H 06/11/17 07:30 Eos # (Auto) 0.1 (0.0-0.7) 06/11/17 07:30 Baso # (Auto) 0.04 K/mm3 (0.0-2.0) 06/11/17 07:30 PT 14.1 SECONDS (9.4-12.5) H 06/11/17 07:30 INR 1.22 (0.93-1.08) H 06/11/17 07:30 APTT 29.0 Seconds (25.1-36.5) 06/11/17 07:30 Sodium 138 mmol/L (132-148) 06/11/17 07:30 Potassium 4.5 mmol/L (3.6-5.0) 06/11/17 07:30 Chloride 95 mmol/L (98-107) L 06/11/17 07:30 Carbon Dioxide 30 mmol/L (21-33) 06/11/17 07:30 Anion Gap 17 (10-20) 06/11/17 07:30 BUN 55 mg/dL (7-21) H 06/11/17 07:30 Creatinine 9.1 mg/dl (0.8-1.5) H* 06/11/17 07:30 Est GFR ( Amer) 7 06/11/17 07:30 Est GFR (Non-Af Amer) 6 06/11/17 07:30 POC Glucose (mg/dL) 176 mg/dL (65-110) H 06/11/17 17:23 Random Glucose 204 mg/dL (70-110) H 06/11/17 07:30 Calcium 8.7 mg/dL (8.4-10.5) 06/11/17 07:30 Magnesium 2.3 mg/dL (1.7-2.2) H 06/11/17 07:30 Total Bilirubin 0.5 mg/dL (0.2-1.3) 06/11/17 07:30 AST 134 U/L (17-59) H D 06/11/17 07:30 ALT 67 U/L (7-56) H 06/11/17 07:30 Alkaline Phosphatase 48 U/L (38-126) 06/11/17 07:30 Lactate Dehydrogenase 776 U/L (333-699) H 06/11/17 07:30 Total Creatine Kinase 505 U/L (35-230) H 06/11/17 07:30 CK-MB (CK-2) 6.4 ng/mL (0.0-3.6) H 06/11/17 07:30 CK-MB (CK-2) % 1.3 % (2.5-3.0) L 06/11/17 07:30 Troponin I 0.28 ng/mL H* D 06/11/17 07:30 NT-Pro-B Natriuret Pep 58887 pg/mL (0-450) H 06/11/17 07:30 Total Protein 7.7 g/dL (5.8-8.3) 06/11/17 07:30 Albumin 3.7 g/dL (3.0-4.8) 06/11/17 07:30 Globulin 4.0 gm/dL 06/11/17 07:30 Albumin/Globulin Ratio 0.9 (1.1-1.8) L 06/11/17 07:30 - Constitutional Appears: Other (Ill looking.) - Head Exam Head Exam: ATRAUMATIC, NORMAL INSPECTION, NORMOCEPHALIC - Eye Exam Eye Exam: Normal appearance - ENT Exam ENT Exam: Mucous Membranes Dry, Normal External Ear Exam - Neck Exam Neck Exam: Normal Inspection - Respiratory Exam Respiratory Exam: Clear to Ausculation Bilateral, NORMAL BREATHING PATTERN - Cardiovascular Exam Cardiovascular Exam: Bradycardia, REGULAR RHYTHM. absent: JVD - GI/Abdominal Exam GI & Abdominal Exam: absent: Distended - Rectal Exam Rectal Exam: Deferred - Exam Additional comments: Deferred. - Extremities Exam Additional comments: Left arm AV fistula +. - Back Exam Back Exam: NORMAL INSPECTION - Neurological Exam Neurological Exam: Alert, Awake - Psychiatric Exam Psychiatric exam: Anxious - Skin Skin Exam: Dry, Normal Color Assessment and Plan - Assessment and Plan (Free Text) Assessment: Bradycardia. Hypotension. NSTEAMI. Syncope. Dizziness. DM II. CAD. CHF. Obesity. RENATA. ESRD on HD. Diabetic neuropathy. Plan: Atropine 0.5 mg IV x 1. Normal saline bolus 250 CC IV x 1. Analesic for chest pain when BP is stable. CBC,CMP,Mag,Phos EKG, trop. Transfer to CCU.. CRITICAL CARE TIME SPENT 30 minutes.
[2017-06-11] MEDS ORDERED: DOPamine 400mg/250ml D5W 400 MG/250 ML BAG IV PRN (19:38)
[2017-06-11] MEDS ORDERED: Morphine 2 mg/ml ISec IVP ONE ×2 (19:59→21:30)
[2017-06-11 20:03] LABS: HEMOGLOBIN 9.8 g/dL (14.0-18.0); MEAN CELL VOLUME 94.3 fl (80.0-105.0); MEAN CORPUSCULAR HEMOGLOBIN 29.6 pg (25.0-35.0); MEAN CORPUSCULAR HGB CONC 31.4 g/dl (31.0-37.0); RBC 3.31 10^6/uL (3.5-6.1); WHITE BLOOD COUNT 6.1 10^3/ul (4.5-11.0)
[2017-06-11 20:32] LABS: ALBUMIN 3.8 g/dL (3.0-4.8); CALCIUM 8.7 mg/dL (8.4-10.5)
[2017-06-11 20:33] LABS: INR 1.21 (0.93-1.08); PROTHROMBIN TIME 13.8 SECONDS (9.4-12.5)
[2017-06-11] MEDS ORDERED: Sod Polystyrene Sulf 15 gm/60 ml Susp PO ONE (20:36)
[2017-06-11] MEDS ORDERED: Dextrose 50% SYRINGE Inj (50 ml) IVP ONE (20:37)
[2017-06-11] MEDS ORDERED: Insulin Regular 1 UNITS/0.01 ML ML SC ONE (20:38)
[2017-06-11 21:02] LABS: TROPONIN I 0.22 ng/mL
[2017-06-11] MEDS ORDERED: Sod Polystyrene Sulf 15 gm/60 ml Susp PR ONE (21:19)
[2017-06-11] MEDS: DOPamine 400mg/250ml D5W 400 MG/250 ML BAG IV PRN (21:42)
[2017-06-11] MEDS ORDERED: Sodium Chloride 0.9% 500 ML IV SCH (22:00)
--- NOTE | 2017-06-11 23:17 | CARD ---
APPROVED REPORT EKG Measurement Heart [id number] <Conclusion> Sinus rhythm with 1st degree AV block Minimal voltage criteria for LVH, may be normal variant Nonspecific T wave abnormality Prolonged QT Abnormal ECG
--- NOTE | 2017-06-11 23:28 | CP.PCM.CON ---
History of Present Illness - History of Present Illness History of Present Illness: PGY-2 ICU consult note 52 yo male with past medical history of ESRD (dialysis M, W, F, last session done 2 days ago, full treatment no complications), s/p pci, hypertension, diabetes, CAD, s/p cholecystectomy, left cornea transplant, cardiac stents and bronchial asthma, presents to the emergency department complaining of dizziness which began last night. He states that he may have had a syncopal episode last night. Patient also reports chest pain that began last night. However the chest pain improved in the morning. He notes blood pressure was 110/40 yesterday at home. Typical blood pressure of systolic of 180. Per nurse patient began to hunch over with tight chest pain. Patient then became dizzy and passed out. INSTALLATION COORDINATOR was called. Patient received atropine and 250cc bolus. Patient is diaphoretic, nausea and vomiting, some sob and chest pain. PMH: ESRD (dialysis M, W, F, last session done 2 days ago, full treatment no complications), s/p pci, hypertension, diabetes, CAD, s/p cholecystectomy and bronchial asthma PSH: cardiac stents, left cornea transplant social history: denies alcohol use, smoking, illicit drug use allergy: insulin aspart, moxifloxacin, penicillin Review of Systems - Review of Systems All systems: reviewed and no additional remarkable complaints except Past Patient History - Infectious Disease Hx of Infectious Diseases: None - Tetanus Immunizations Tetanus Immunization: Up to Date - Past Social History Smoking Status: Never Smoked - CARDIAC Hx Cardiac Disorders: Yes Hx Angina: Yes Hx Congestive Heart Failure: Yes Hx Heart Attack: Yes Hx Hypertension: Yes Other/Comment: s/p PTCA LAD 3-4 years , Hx of PTCA RCA 10/2014. repeat Cath .. Non Obst CAd - PULMONARY Hx Chronic Obstructive Pulmonary Disease (COPD): Yes - NEUROLOGICAL Hx Transient Ischemic Attacks (TIA): Yes (3 years ago) - HEENT Hx HEENT Problems: Yes (BILATERAL EYE WITH BLURRY VISION) Hx Cataracts: Yes (HAD SX 05/29/12) Other/Comment: left eye cornea transplant,RENAL RETINOPATHY, glasses - RENAL Hx Chronic Kidney Disease: Yes Hx Dialysis: Yes Type of Dialysis Access: left arm Date of Last Dialysis Treatment: 06/09/17 Hx Kidney Stones: Yes (04/03) - ENDOCRINE/METABOLIC Hx Diabetes Mellitus Type 1: Yes - HEMATOLOGICAL/ONCOLOGICAL Hx Anemia: Yes (With transfusions) - INTEGUMENTARY Hx Dermatological Problems: Yes (BILATERAL EDEMA TO UPPER AND LE,SKIN DRYNESS) - MUSCULOSKELETAL/RHEUMATOLOGICAL Hx Unsteady Gait: Yes Other/Comment: Use of cane - GASTROINTESTINAL Hx Gastrointestinal Disorders: (hx pancreatitis) Hx Gall Bladder Disease: Yes (CHOLECYSTECTOMY) Hx Gastroesophageal Reflux: Yes Hx Liver Failure: Yes (CKD) Hx Pancreatitis: Yes - GENITOURINARY/GYNECOLOGICAL Hx Genitourinary Disorders: Yes - PSYCHIATRIC Hx Psychophysiologic Disorder: No Hx Substance Use: No - SURGICAL HISTORY Hx Cholecystectomy: Yes (08/15/12) Hx Coronary Stent: Yes (x1) Other/Comment: FISTULA - ANESTHESIA Hx Anesthesia: Yes Hx Anesthesia Reactions: No Hx Malignant Hyperthermia: No Meds Allergies/Adverse Reactions: Allergies Allergy/AdvReac Type Severity Reaction Status Date / Time insulin aspart [From Novolog] Allergy Intermediate ITCHING Verified 06/11/17 07: 23 moxifloxacin Allergy Intermediate ITCHING Verified 06/11/17 07:23 Penicillins Allergy Intermediate ITCHING Verified 06/11/17 07:23 - Medications Medications: Current Medications Calcium Acetate (Phoslo) 667 mg PO WM [facility] Last Admin: 06/11/17 17:43 Dose: 667 mg Clopidogrel Bisulfate (Plavix) 75 mg PO DAILY [facility] Dopamine HCl/Dextrose (Dopamine 400mg/250ml D5w) 400 mg in 250 mls @ 6.804 mls/ hr IV .Q24H PRN; Protocol; 2 MCG/KG/MIN PRN Reason: TITRATE PER MD ORDER Last Admin: 06/11/17 21:42 Dose: 2 mcg/kg/min, 6.804 mls/hr Insulin Human Regular (Humulin R Low) 0 units SC ACHS [facility] PRN Reason: Protocol Last Admin: 06/11/17 21:39 Dose: 5 units Metoprolol Tartrate (Lopressor) 25 mg PO BID [facility] Last Admin: 06/11/17 17:43 Dose: 25 mg Vitamin B Complex/Vit C/Folic Acid (Nephro-Eva) 1 tab PO 0800 [facility] Physical Exam - Constitutional Appears: In Acute Distress - Head Exam Head Exam: ATRAUMATIC, NORMAL INSPECTION, NORMOCEPHALIC - Eye Exam Eye Exam: EOMI, Normal appearance - ENT Exam ENT Exam: Mucous Membranes Moist - Respiratory Exam Respiratory Exam: Clear to Auscultation Bilateral, NORMAL BREATHING PATTERN. absent: Rhonchi, Wheezes, Respiratory Distress - Cardiovascular Exam Cardiovascular Exam: Bradycardia, REGULAR RHYTHM. absent: Diastolic murmur, Systolic Murmur - GI/Abdominal Exam GI & Abdominal Exam: Normal Bowel Sounds, Soft. absent: Distended, Firm, Guarding, Tenderness - Extremities Exam Extremities exam: Positive for: normal inspection - Neurological Exam Neurological exam: Alert, Oriented x3 - Psychiatric Exam Psychiatric exam: Anxious - Skin Skin Exam: Diaphoretic Results - Vital Signs Recent Vital Signs: Last Vital Signs Temp 98.7 F 06/11/17 18:00 Pulse 62 06/11/17 23:11 Resp 16 06/11/17 23:11 BP 115/45 L 06/11/17 23:11 Pulse Ox 100 06/11/17 23:11 - Labs Result Diagrams: 06/11/17 19:50 06/11/17 19:50 Labs: Laboratory Results - last 24 hr 06/11/17 06/11/17 06/11/17 17:23 19:02 19:50 WBC 6.1 D RBC 3.31 L Hgb 9.8 L Hct 31.2 L MCV 94.3 MCH 29.6 MCHC 31.4 RDW 14.0 Plt Count 185 MPV 11.0 PT INR APTT Sodium Potassium Chloride Carbon Dioxide Anion Gap BUN Creatinine Est GFR ( Amer) Est GFR (Non-Af Amer) POC Glucose (mg/dL) 176 H 205 H Random Glucose Calcium Phosphorus Magnesium Total Bilirubin AST ALT Alkaline Phosphatase Troponin I Total Protein Albumin Globulin Albumin/Globulin Ratio 06/11/17 06/11/17 19:50 19:50 WBC RBC Hgb Hct MCV MCH MCHC RDW Plt Count MPV PT 13.8 H INR 1.21 H APTT 29.0 Sodium 135 Potassium 6.7 H* D Chloride 95 L Carbon Dioxide 26 Anion Gap 20 BUN 65 H Creatinine 10.3 H* Est GFR ( Amer) 6 Est GFR (Non-Af Amer) 5 POC Glucose (mg/dL) Random Glucose 256 H Calcium 8.7 Phosphorus 8.3 H Magnesium 2.5 H Total Bilirubin 0.6 AST 92 H D ALT 70 H Alkaline Phosphatase 48 Troponin I 0.22 H* D Total Protein 7.6 Albumin 3.8 Globulin 3.8 Albumin/Globulin Ratio 1.0 L Assessment & Plan - Assessment and Plan (Free Text) Assessment: 52 yo male with past medical history of ESRD (dialysis M, W, F, last session done 2 days ago, full treatment no complications), s/p pci, hypertension, diabetes, CAD, s/p cholecystectomy, left cornea transplant, cardiac stents and bronchial asthma, presented with dizziness and INSTALLATION COORDINATOR s/p syncopal episode with bradycardia and hypotension. Plan: Neuro - episode of syncope last night - INSTALLATION COORDINATOR called patient had syncopal episode - CT head ordered - patient alert and oriented x3 - neuro checks cardio - INSTALLATION COORDINATOR called patient was bradycardic and hypotensive - elevated trop in ED and patient complaining of chest pain - repeat trop 0.22, will trend trops - Repeat ekg unchanged from previous - dopamine drip started, BP improved - maintain MAP>65 - 500cc NS bolus given - hold BP meds - cardiology consulted Pulm - Mild sob - placed on NC O2 on 4 L - maintain SaO2 > 90% Nephro - h/o ESRD on HD(MWF), last dialysis 2 days ago - hyperkalemia at 6.7 - calcium gluconate given - insulin 10 units, 1 amp D50 ordered - kayexalate ordered - emergent dialysis started - nephro consulted endocrine - DMII - ISSS - accuchecks achs
--- NOTE | 2017-06-12 00:25 | HP ---
HISTORY OF PRESENT ILLNESS: The patient is a 52-year-old male who presented to the emergency room today with complaints of dizziness and near syncope. He also complains of some chest discomfort, which is nonradiating. No nausea, no vomiting. No diaphoresis. PAST MEDICAL HISTORY: Includes end-stage renal disease, on hemodialysis three times per week; COPD; type 2 diabetes mellitus; hypertension; coronary artery disease status post PTCA. PAST SURGICAL HISTORY: Includes AV fistula placement. ALLERGIES: PATIENT REPORTS ALLERGIES TO QUINOLONES AND PENICILLINS. CURRENT MEDICATIONS: Include aspirin 325 mg a day and ondansetron 4 mg daily. SOCIAL HISTORY: Patient denies tobacco or alcohol use. REVIEW OF SYSTEMS: Essentially as above. PHYSICAL EXAMINATION: VITAL SIGNS: Blood pressure 121/55, pulse 55, temperature 97.6, respiratory rate 18. HEENT: Head is normocephalic, atraumatic. Pupils equal, round, reactive to light. Extraocular movements intact. NECK: Supple. No thyromegaly. No carotid bruit. LUNGS: Clear. HEART: Regular rate and rhythm. ABDOMEN: Soft, mildly obese, nontender. Bowel sounds are normoactive. EXTREMITIES: Without cyanosis, clubbing. NEUROLOGIC: The patient is awake and oriented x3 without focal, sensory, or motor deficits. SKIN: Warm and dry. LABORATORY DATA: WBC is 4.7, hemoglobin 9.1, hematocrit 28.9. Sodium 138, potassium 4.5, chloride 95, CO2 of 30, BUN 55, creatinine 9.1, glucose 204. AST is 134, ALT was 67, LDH elevated at 776. CPK is 505. Troponin is elevated at 0.28. BNP is elevated at 12,500. IMPRESSION: 1. Near syncope and chest pain, rule out coronary artery disease, rule out acute ischemia/infarct. 2. End-stage kidney disease, on hemodialysis. 3. Type 2 diabetes mellitus. 4. Chronic obstructive pulmonary disease. PLAN: We will obtain Renal and Cardiology consultations. Start insulin coverage. Dr. Kessler to resume care of the patient in a.m. JANAY He MD [facility] # [id number]
[2017-06-12 07:37] LABS: HEMOGLOBIN 9.8 g/dL (14.0-18.0); MEAN CELL VOLUME 94.3 fl (80.0-105.0); MEAN CORPUSCULAR HEMOGLOBIN 29.4 pg (25.0-35.0); MEAN CORPUSCULAR HGB CONC 31.2 g/dl (31.0-37.0); MEAN PLATELET VOLUME 10.9 fl (7.0-11.0); RBC 3.33 10^6/uL (3.5-6.1); RED CELL DISTRIBUTION WIDTH 14.1 % (11.5-14.5); WHITE BLOOD COUNT 6.7 10^3/ul (4.5-11.0)
[2017-06-12] MEDS: Insulin Reg-LOW-Coverage SC SCH ×3 (07:55→22:05)
[2017-06-12 08:00] LABS: ALBUMIN 4.1 g/dL (3.0-4.8); ALT/SGPT 87 U/L (7-56); AST/SGOT 103 U/L (17-59); BLOOD UREA NITROGEN 39 mg/dL (7-21); CALCIUM 8.8 mg/dL (8.4-10.5); GFR AFRICAN-AMERICAN 12; GFR NON-AFRICAN AMERICAN 10; HDL CHOLESTEROL 25 mg/dL (29-60)
[2017-06-12 08:03] LABS: LDL CHOLESTEROL < 30 mg/dL (0-129)
[2017-06-12 08:11] LABS: CK-MB 4.4 ng/mL (0.0-3.6)
[2017-06-12] MEDS ORDERED: Iodixanol 320 MG/ML 200 ML BOTTLE IV ONE (08:28)
[2017-06-12] MEDS ORDERED: Iohexol 350mgl/ml 50 ML ONE (08:28)
[2017-06-12] MEDS ORDERED: Iodixanol 320 MG/ML 100 ML BOTTLE IV ONE (08:28)
[2017-06-12] MEDS ORDERED: Lidocaine 2% Inj (20ml) ONE (08:29)
[2017-06-12] MEDS ORDERED: HEPARIN SODIUM/NS 1,000 ML IV ONE (08:29)
[2017-06-12] MEDS ORDERED: Midazolam 2 MG/2 ML VIAL ONE (08:34)
[2017-06-12 08:54] LABS: TROPONIN I 0.25 ng/mL
[2017-06-12] MEDS ORDERED: Adenosine 90 mg/30mL IV ONE (09:10)
[2017-06-12] MEDS ORDERED: Eptifibatide 20 mg/10mL Inj IVP ONE (09:30)
[2017-06-12] MEDS ORDERED: Phenylephrine 10 mg/ml Inj ONE (09:42)
--- NOTE | 2017-06-12 09:55 | CP.CCUPN ---
<Carmine Montoya - Last Filed: 06/12/17 09:51> CCU Subjective - Physician Review Subjective (Free Text): Patient seen and examined at bedside. Patient transferred to ICU after VP [employer] on floor last night. Patient complains of intermittent chest pain this morning. Denies shortness of breath, nausea, vomiting, diarrhea, fever, chills. CCU Objective - Vital Signs / Intake & Output Vital Signs (Last 4 hours): Vital Signs Temp Pulse Resp BP Pulse Ox 06/12/17 06:00 97.7 F 61 14 119/58 L 99 Intake and Output (Last 8hrs): Intake & Output 06/11/17 06/12/17 06/12/17 22:59 06:59 14:59 Intake Total 550 50 Output Total 30 Balance 520 50 Weight 200 lb Intake: IV 550 50 Right Wrist 550 Oral 0 Output: Urine 30 Urine, Voided 30 Other: # Bowel Movements 3 - Physical Exam Head: Positive for: Atraumatic, Normocephalic Pupils: Positive for: PERRL Extroacular Muscles: Positive for: EOMI Conjunctiva: Positive for: Normal Mouth: Positive for: Moist Mucous Membranes Neck: Positive for: Normal Range of Motion Respiratory/Chest: Positive for: Clear to Auscultation, Good Air Exchange. Negative for: Respiratory Distress, Accessory Muscle Use Cardiovascular: Positive for: Regular Rate and Rhythm Abdomen: Positive for: Normal Bowel Sounds. Negative for: Tenderness, Distention, Peritoneal Signs Back: Positive for: Normal Inspection Upper Extremity: Positive for: Normal Inspection. Negative for: Cyanosis, Edema Lower Extremity: Positive for: Normal Inspection. Negative for: Edema Neurological: Positive for: GCS=15, CN II-XII Intact, Speech Normal Skin: Positive for: Warm, Dry, Normal Color. Negative for: Rashes Psychiatric: Positive for: Alert, Oriented x 3, Normal Insight, Normal Concentration - Medications Active Medications: Active Medications Generic Name Dose Route Start Last Admin Trade Name Freq PRN Reason Stop Dose Admin Calcium Acetate 667 mg 06/11/17 17:00 06/11/17 17:43 Phoslo PO 667 mg WM CARLOS Administration Clopidogrel Bisulfate 75 mg 06/12/17 10:00 06/12/17 07:59 Plavix PO 75 mg DAILY CARLOS Administration Heparin Sodium (Porcine) 5,000 units 06/12/17 10:00 Heparin SC Q12 [facility] Protocol Dopamine HCl/Dextrose 400 mg in 250 mls @ 6.804 mls/hr 06/11/17 21:30 07:34 Dopamine 400mg/250ml D5w IV 3 mcg/kg/min .Q24H PRN 10.206 mls/hr TITRATE PER MD ORDER Titration Protocol 2 MCG/KG/MIN Insulin Human Regular 0 units 06/11/17 16:30 06/11/17 21:39 Humulin R Low SC 5 units ACHS CARLOS Administration Protocol Metoprolol Tartrate 25 mg 06/11/17 18:00 06/11/17 17:43 Lopressor PO 25 mg BID CARLOS Administration Pantoprazole Sodium 40 mg 06/13/17 06:00 Protonix Ec Tab PO 0600 [facility] Vitamin B Complex/Vit C/Folic Acid 1 tab 06/12/17 08:00 Nephro-Eva PO 0800 [facility] - Patient Studies Lab Studies: Lab Studies 06/12/17 06/12/17 06/12/17 Range/Units 07:30 07:30 07:30 WBC 6.7 (4.5-11.0) 10^3/ul RBC 3.33 L (3.5-6.1) 10^6/uL Hgb 9.8 L (14.0-18.0) g/dL Hct 31.4 L (42.0-52.0) % MCV 94.3 (80.0-105.0) fl MCH 29.4 (25.0-35.0) pg MCHC 31.2 (31.0-37.0) g/dl RDW 14.1 (11.5-14.5) % Plt Count 182 (120.0-450.0) 10^3/uL MPV 10.9 (7.0-11.0) fl PT (9.4-12.5) SECONDS INR (0.93-1.08) APTT (25.1-36.5) Seconds Sodium 138 (132-148) mmol/L Potassium 4.7 (3.6-5.0) mmol/L Chloride 95 L (98-107) mmol/L Carbon Dioxide 29 (21-33) mmol/L Anion Gap 18 (10-20) BUN 39 H (7-21) mg/dL Creatinine 6.1 H (0.8-1.5) mg/dl Est GFR ( Amer) 12 Est GFR (Non-Af Amer) 10 POC Glucose (mg/dL) (65-110) mg/dL Random Glucose 223 H (70-110) mg/dL Calcium 8.8 (8.4-10.5) mg/dL Phosphorus (2.5-4.5) mg/dL Magnesium 2.2 (1.7-2.2) mg/dL Total Bilirubin 1.2 (0.2-1.3) mg/dL AST 103 H (17-59) U/L ALT 87 H (7-56) U/L Alkaline Phosphatase 49 (38-126) U/L Lactate Dehydrogenase 710 H (333-699) U/L Total Creatine Kinase 272 H (35-230) U/L CK-MB (CK-2) 4.4 H (0.0-3.6) ng/mL CK-MB (CK-2) % Cancelled Troponin I 0.25 H* ng/mL Total Protein 8.4 H (5.8-8.3) g/dL Albumin 4.1 (3.0-4.8) g/dL Globulin 4.3 gm/dL Albumin/Globulin Ratio 1.0 L (1.1-1.8) Triglycerides 176 H (35-160) mg/dL Cholesterol 86 L (130-200) mg/dL LDL Cholesterol Direct < 30 (0-129) mg/dL HDL Cholesterol 25 L (29-60) mg/dL TSH 3rd Generation 2.04 (0.46-4.68) mIU/mL 06/11/17 06/11/17 06/11/17 Range/Units 19:50 19:50 19:50 WBC 6.1 D (4.5-11.0) 10^3/ul RBC 3.31 L (3.5-6.1) 10^6/uL Hgb 9.8 L (14.0-18.0) g/dL Hct 31.2 L (42.0-52.0) % MCV 94.3 (80.0-105.0) fl MCH 29.6 (25.0-35.0) pg MCHC 31.4 (31.0-37.0) g/dl RDW 14.0 (11.5-14.5) % Plt Count 185 (120.0-450.0) 10^3/uL MPV 11.0 (7.0-11.0) fl PT 13.8 H (9.4-12.5) SECONDS INR 1.21 H (0.93-1.08) APTT 29.0 (25.1-36.5) Seconds Sodium 135 (132-148) mmol/L Potassium 6.7 H* D (3.6-5.0) mmol/L Chloride 95 L (98-107) mmol/L Carbon Dioxide 26 (21-33) mmol/L Anion Gap 20 (10-20) BUN 65 H (7-21) mg/dL Creatinine 10.3 H* (0.8-1.5) mg/dl Est GFR ( Amer) 6 Est GFR (Non-Af Amer) 5 POC Glucose (mg/dL) (65-110) mg/dL Random Glucose 256 H (70-110) mg/dL Calcium 8.7 (8.4-10.5) mg/dL Phosphorus 8.3 H (2.5-4.5) mg/dL Magnesium 2.5 H (1.7-2.2) mg/dL Total Bilirubin 0.6 (0.2-1.3) mg/dL AST 92 H D (17-59) U/L ALT 70 H (7-56) U/L Alkaline Phosphatase 48 (38-126) U/L Lactate Dehydrogenase (333-699) U/L Total Creatine Kinase (35-230) U/L CK-MB (CK-2) (0.0-3.6) ng/mL CK-MB (CK-2) % Troponin I 0.22 H* D ng/mL Total Protein 7.6 (5.8-8.3) g/dL Albumin 3.8 (3.0-4.8) g/dL Globulin 3.8 gm/dL Albumin/Globulin Ratio 1.0 L (1.1-1.8) Triglycerides (35-160) mg/dL Cholesterol (130-200) mg/dL LDL Cholesterol Direct (0-129) mg/dL HDL Cholesterol (29-60) mg/dL TSH 3rd Generation (0.46-4.68) mIU/mL 06/11/17 06/11/17 Range/Units 19:02 17:23 WBC (4.5-11.0) 10^3/ul RBC (3.5-6.1) 10^6/uL Hgb (14.0-18.0) g/dL Hct (42.0-52.0) % MCV (80.0-105.0) fl MCH (25.0-35.0) pg MCHC (31.0-37.0) g/dl RDW (11.5-14.5) % Plt Count (120.0-450.0) 10^3/uL MPV (7.0-11.0) fl PT (9.4-12.5) SECONDS INR (0.93-1.08) APTT (25.1-36.5) Seconds Sodium (132-148) mmol/L Potassium (3.6-5.0) mmol/L Chloride (98-107) mmol/L Carbon Dioxide (21-33) mmol/L Anion Gap (10-20) BUN (7-21) mg/dL Creatinine (0.8-1.5) mg/dl Est GFR ( Amer) Est GFR (Non-Af Amer) POC Glucose (mg/dL) 205 H 176 H (65-110) mg/dL Random Glucose (70-110) mg/dL Calcium (8.4-10.5) mg/dL Phosphorus (2.5-4.5) mg/dL Magnesium (1.7-2.2) mg/dL Total Bilirubin (0.2-1.3) mg/dL AST (17-59) U/L ALT (7-56) U/L Alkaline Phosphatase (38-126) U/L Lactate Dehydrogenase (333-699) U/L Total Creatine Kinase (35-230) U/L CK-MB (CK-2) (0.0-3.6) ng/mL CK-MB (CK-2) % Troponin I ng/mL Total Protein (5.8-8.3) g/dL Albumin (3.0-4.8) g/dL Globulin gm/dL Albumin/Globulin Ratio (1.1-1.8) Triglycerides (35-160) mg/dL Cholesterol (130-200) mg/dL LDL Cholesterol Direct (0-129) mg/dL HDL Cholesterol (29-60) mg/dL TSH 3rd Generation (0.46-4.68) mIU/mL Laboratory Results - last 24 hr 06/11/17 06/11/17 06/11/17 17:23 19:02 19:50 WBC 6.1 D RBC 3.31 L Hgb 9.8 L Hct 31.2 L MCV 94.3 MCH 29.6 MCHC 31.4 RDW 14.0 Plt Count 185 MPV 11.0 PT INR APTT Sodium Potassium Chloride Carbon Dioxide Anion Gap BUN Creatinine Est GFR ( Amer) Est GFR (Non-Af Amer) POC Glucose (mg/dL) 176 H 205 H Random Glucose Calcium Phosphorus Magnesium Total Bilirubin AST ALT Alkaline Phosphatase Lactate Dehydrogenase Total Creatine Kinase CK-MB (CK-2) CK-MB (CK-2) % Troponin I Total Protein Albumin Globulin Albumin/Globulin Ratio Triglycerides Cholesterol LDL Cholesterol Direct HDL Cholesterol TSH 3rd Generation 06/11/17 06/11/17 06/12/17 19:50 19:50 07:30 WBC RBC Hgb Hct MCV MCH MCHC RDW Plt Count MPV PT 13.8 H INR 1.21 H APTT 29.0 Sodium 135 138 Potassium 6.7 H* D 4.7 Chloride 95 L 95 L Carbon Dioxide 26 29 Anion Gap 20 18 BUN 65 H 39 H Creatinine 10.3 H* 6.1 H Est GFR ( Amer) 6 12 Est GFR (Non-Af Amer) 5 10 POC Glucose (mg/dL) Random Glucose 256 H 223 H Calcium 8.7 8.8 Phosphorus 8.3 H Magnesium 2.5 H 2.2 Total Bilirubin 0.6 1.2 AST 92 H D 103 H ALT 70 H 87 H Alkaline Phosphatase 48 49 Lactate Dehydrogenase 710 H Total Creatine Kinase 272 H CK-MB (CK-2) 4.4 H CK-MB (CK-2) % Cancelled Troponin I 0.22 H* D 0.25 H* Total Protein 7.6 8.4 H Albumin 3.8 4.1 Globulin 3.8 4.3 Albumin/Globulin Ratio 1.0 L 1.0 L Triglycerides 176 H Cholesterol 86 L LDL Cholesterol Direct < 30 HDL Cholesterol 25 L TSH 3rd Generation 06/12/17 06/12/17 07:30 07:30 WBC 6.7 RBC 3.33 L Hgb 9.8 L Hct 31.4 L MCV 94.3 MCH 29.4 MCHC 31.2 RDW 14.1 Plt Count 182 MPV 10.9 PT INR APTT Sodium Potassium Chloride Carbon Dioxide Anion Gap BUN Creatinine Est GFR ( Amer) Est GFR (Non-Af Amer) POC Glucose (mg/dL) Random Glucose Calcium Phosphorus Magnesium Total Bilirubin AST ALT Alkaline Phosphatase Lactate Dehydrogenase Total Creatine Kinase CK-MB (CK-2) CK-MB (CK-2) % Troponin I Total Protein Albumin Globulin Albumin/Globulin Ratio Triglycerides Cholesterol LDL Cholesterol Direct HDL Cholesterol TSH 3rd Generation 2.04 EKG/Cardiology Studies: Cardiology / EKG Studies 06/11/17 19:26 ELECTROCARDIOGRAM Stat Comment: Reason For Exam: chest pain, unresponsive 06/12/17 02:00 EKG [ELECTROCARDIOGRAM] Routine Comment: Reason For Exam: chest pain, elevated trop Fingerstick Blood Sugar Results: 379 Critical Care Progress Note - Nutrition Nutrition: Nutrition Category Date Time Status Renal Diet [DIET] Diets 06/11/17 Lunch Ordered Assessment/Plan - Assessment and Plan (Free Text) Plan: 52 yo male with past medical history of ESRD (dialysis M, W, F, last session done 2 days ago, full treatment no complications), s/p pci, hypertension, diabetes, CAD, s/p cholecystectomy, left cornea transplant, cardiac stents and bronchial asthma presents with chest pain rule out ACS. Patient received emergent dialysis overnight to correct electrolyte imbalances. Patient to be taken to cardiac [employer] this morning as per cardiology. Neuro AAOx3 Head CT pending No deficits Cardio Hemodynamically stable on Dopamine drip Maintain MAP >65 Continue to hold antihypertensives Cardac cath this morning, will follow up for results and recommendations Pulm NC @ 4 L maintain SaO2 > 90% GI Protonix for GI PPX Renal diet Nephro ESRD, emergent dialysis overnight Patient will receive dialysis today Electrolyte imbalances corrected after dialysis Replenish electrolytes as need Maintain Euvolemia Nephrology following Endo ISS accuchecks Maintain euglycemia Heme/ID Afebrile, leukocytosis Maintain normothermia Heparin for DVT PPX Lindsay, PGY-2 <Devon Webster - Last Filed: 06/12/17 11:50> CCU Objective - Vital Signs / Intake & Output Vital Signs (Last 4 hours): Vital Signs Pulse Resp BP Pulse Ox 06/12/17 11:20 57 L 17 98 06/12/17 11:15 118/48 L 06/12/17 11:14 61 99 06/12/17 11:10 58 L 21 98 06/12/17 11:00 129/49 L 06/12/17 10:59 61 26 H 98 06/12/17 10:50 59 L 12 96 06/12/17 10:45 61 15 117/52 L 87 L 06/12/17 10:40 69 13 84 L 06/12/17 10:37 75 16 06/12/17 10:36 76 21 06/12/17 10:30 57 L 13 106/52 L 06/12/17 10:24 54 L 24 111/46 L 06/12/17 10:21 56 L 14 06/12/17 10:14 44 L 22 96/32 L 06/12/17 07:50 59 L 15 100 Intake and Output (Last 8hrs): Intake & Output 06/11/17 06/12/17 06/12/17 22:59 06:59 14:59 Intake Total 550 50 Output Total 30 Balance 520 50 Weight 200 lb 202 lb Intake: IV 550 50 Right Wrist 550 Oral 0 Output: Urine 30 Urine, Voided 30 Other: # Bowel Movements 3 - Medications Active Medications: Active Medications Generic Name Dose Route Start Last Admin Trade Name Freq PRN Reason Stop Dose Admin Aspirin 81 mg 06/13/17 10:00 Ecotrin PO DAILY [facility] Atorvastatin Calcium 10 mg 06/12/17 17:00 Lipitor PO DIN [facility] Calcium Acetate 667 mg 06/11/17 17:00 06/11/17 17:43 Phoslo PO 667 mg WM [facility] Administration Clopidogrel Bisulfate 75 mg 06/12/17 10:00 06/12/17 10:53 Plavix PO Not Given DAILY [facility] Heparin Sodium (Porcine) 5,000 units 06/12/17 10:00 06/12/17 10:54 Heparin SC Not Given Q12 [facility] Protocol Dopamine HCl/Dextrose 400 mg in 250 mls @ 6.804 mls/hr 06/11/17 21:30 07:34 Dopamine 400mg/250ml D5w IV 3 mcg/kg/min .Q24H PRN 10.206 mls/hr TITRATE PER MD ORDER Titration Protocol 2 MCG/KG/MIN Insulin Human Regular 0 units 06/11/17 16:30 06/12/17 11:03 Humulin R Low SC Not Given ACHS [facility] Protocol Metoprolol Tartrate 25 mg 06/11/17 18:00 06/11/17 17:43 Lopressor PO 25 mg BID [facility] Administration Pantoprazole Sodium 40 mg 06/13/17 06:00 Protonix Ec Tab PO 0600 [facility] Vitamin B Complex/Vit C/Folic Acid 1 tab 06/12/17 08:00 Nephro-Eva PO 0800 [facility] - Patient Studies Lab Studies: Lab Studies 06/12/17 06/12/17 06/12/17 Range/Units 11:00 07:30 07:30 WBC 6.7 (4.5-11.0) 10^3/ul RBC 3.33 L (3.5-6.1) 10^6/uL Hgb 9.8 L (14.0-18.0) g/dL Hct 31.4 L (42.0-52.0) % MCV 94.3 (80.0-105.0) fl MCH 29.4 (25.0-35.0) pg MCHC 31.2 (31.0-37.0) g/dl RDW 14.1 (11.5-14.5) % Plt Count 182 (120.0-450.0) 10^3/uL MPV 10.9 (7.0-11.0) fl PT (9.4-12.5) SECONDS INR (0.93-1.08) APTT (25.1-36.5) Seconds Sodium (132-148) mmol/L Potassium (3.6-5.0) mmol/L Chloride (98-107) mmol/L Carbon Dioxide (21-33) mmol/L Anion Gap (10-20) BUN (7-21) mg/dL Creatinine (0.8-1.5) mg/dl Est GFR ( Amer) Est GFR (Non-Af Amer) POC Glucose (mg/dL) 73 (65-110) mg/dL Random Glucose (70-110) mg/dL Calcium (8.4-10.5) mg/dL Phosphorus (2.5-4.5) mg/dL Magnesium (1.7-2.2) mg/dL Total Bilirubin (0.2-1.3) mg/dL AST (17-59) U/L ALT (7-56) U/L Alkaline Phosphatase (38-126) U/L Lactate Dehydrogenase (333-699) U/L Total Creatine Kinase (35-230) U/L CK-MB (CK-2) (0.0-3.6) ng/mL CK-MB (CK-2) % Troponin I ng/mL Total Protein (5.8-8.3) g/dL Albumin (3.0-4.8) g/dL Globulin gm/dL Albumin/Globulin Ratio (1.1-1.8) Triglycerides (35-160) mg/dL Cholesterol (130-200) mg/dL LDL Cholesterol Direct (0-129) mg/dL HDL Cholesterol (29-60) mg/dL TSH 3rd Generation 2.04 (0.46-4.68) mIU/mL 06/12/17 06/11/17 06/11/17 Range/Units 07:30 21:36 19:50 WBC (4.5-11.0) 10^3/ul RBC (3.5-6.1) 10^6/uL Hgb (14.0-18.0) g/dL Hct (42.0-52.0) % MCV (80.0-105.0) fl MCH (25.0-35.0) pg MCHC (31.0-37.0) g/dl RDW (11.5-14.5) % Plt Count (120.0-450.0) 10^3/uL MPV (7.0-11.0) fl PT 13.8 H (9.4-12.5) SECONDS INR 1.21 H (0.93-1.08) APTT 29.0 (25.1-36.5) Seconds Sodium 138 (132-148) mmol/L Potassium 4.7 (3.6-5.0) mmol/L Chloride 95 L (98-107) mmol/L Carbon Dioxide 29 (21-33) mmol/L Anion Gap 18 (10-20) BUN 39 H (7-21) mg/dL Creatinine 6.1 H (0.8-1.5) mg/dl Est GFR ( Amer) 12 Est GFR (Non-Af Amer) 10 POC Glucose (mg/dL) 373 H (65-110) mg/dL Random Glucose 223 H (70-110) mg/dL Calcium 8.8 (8.4-10.5) mg/dL Phosphorus (2.5-4.5) mg/dL Magnesium 2.2 (1.7-2.2) mg/dL Total Bilirubin 1.2 (0.2-1.3) mg/dL AST 103 H (17-59) U/L ALT 87 H (7-56) U/L Alkaline Phosphatase 49 (38-126) U/L Lactate Dehydrogenase 710 H (333-699) U/L Total Creatine Kinase 272 H (35-230) U/L CK-MB (CK-2) 4.4 H (0.0-3.6) ng/mL CK-MB (CK-2) % Cancelled Troponin I 0.25 H* ng/mL Total Protein 8.4 H (5.8-8.3) g/dL Albumin 4.1 (3.0-4.8) g/dL Globulin 4.3 gm/dL Albumin/Globulin Ratio 1.0 L (1.1-1.8) Triglycerides 176 H (35-160) mg/dL Cholesterol 86 L (130-200) mg/dL LDL Cholesterol Direct < 30 (0-129) mg/dL HDL Cholesterol 25 L (29-60) mg/dL TSH 3rd Generation (0.46-4.68) mIU/mL 06/11/17 06/11/17 06/11/17 Range/Units 19:50 19:50 19:02 WBC 6.1 D (4.5-11.0) 10^3/ul RBC 3.31 L (3.5-6.1) 10^6/uL Hgb 9.8 L (14.0-18.0) g/dL Hct 31.2 L (42.0-52.0) % MCV 94.3 (80.0-105.0) fl MCH 29.6 (25.0-35.0) pg MCHC 31.4 (31.0-37.0) g/dl RDW 14.0 (11.5-14.5) % Plt Count 185 (120.0-450.0) 10^3/uL MPV 11.0 (7.0-11.0) fl PT (9.4-12.5) SECONDS INR (0.93-1.08) APTT (25.1-36.5) Seconds Sodium 135 (132-148) mmol/L Potassium 6.7 H* D (3.6-5.0) mmol/L Chloride 95 L (98-107) mmol/L Carbon Dioxide 26 (21-33) mmol/L Anion Gap 20 (10-20) BUN 65 H (7-21) mg/dL Creatinine 10.3 H* (0.8-1.5) mg/dl Est GFR ( Amer) 6 Est GFR (Non-Af Amer) 5 POC Glucose (mg/dL) 205 H (65-110) mg/dL Random Glucose 256 H (70-110) mg/dL Calcium 8.7 (8.4-10.5) mg/dL Phosphorus 8.3 H (2.5-4.5) mg/dL Magnesium 2.5 H (1.7-2.2) mg/dL Total Bilirubin 0.6 (0.2-1.3) mg/dL AST 92 H D (17-59) U/L ALT 70 H (7-56) U/L Alkaline Phosphatase 48 (38-126) U/L Lactate Dehydrogenase (333-699) U/L Total Creatine Kinase (35-230) U/L CK-MB (CK-2) (0.0-3.6) ng/mL CK-MB (CK-2) % Troponin I 0.22 H* D ng/mL Total Protein 7.6 (5.8-8.3) g/dL Albumin 3.8 (3.0-4.8) g/dL Globulin 3.8 gm/dL Albumin/Globulin Ratio 1.0 L (1.1-1.8) Triglycerides (35-160) mg/dL Cholesterol (130-200) mg/dL LDL Cholesterol Direct (0-129) mg/dL HDL Cholesterol (29-60) mg/dL TSH 3rd Generation (0.46-4.68) mIU/mL 06/11/17 Range/Units 17:23 WBC (4.5-11.0) 10^3/ul RBC (3.5-6.1) 10^6/uL Hgb (14.0-18.0) g/dL Hct (42.0-52.0) % MCV (80.0-105.0) fl MCH (25.0-35.0) pg MCHC (31.0-37.0) g/dl RDW (11.5-14.5) % Plt Count (120.0-450.0) 10^3/uL MPV (7.0-11.0) fl PT (9.4-12.5) SECONDS INR (0.93-1.08) APTT (25.1-36.5) Seconds Sodium (132-148) mmol/L Potassium (3.6-5.0) mmol/L Chloride (98-107) mmol/L Carbon Dioxide (21-33) mmol/L Anion Gap (10-20) BUN (7-21) mg/dL Creatinine (0.8-1.5) mg/dl Est GFR ( Amer) Est GFR (Non-Af Amer) POC Glucose (mg/dL) 176 H (65-110) mg/dL Random Glucose (70-110) mg/dL Calcium (8.4-10.5) mg/dL Phosphorus (2.5-4.5) mg/dL Magnesium (1.7-2.2) mg/dL Total Bilirubin (0.2-1.3) mg/dL AST (17-59) U/L ALT (7-56) U/L Alkaline Phosphatase (38-126) U/L Lactate Dehydrogenase (333-699) U/L Total Creatine Kinase (35-230) U/L CK-MB (CK-2) (0.0-3.6) ng/mL CK-MB (CK-2) % Troponin I ng/mL Total Protein (5.8-8.3) g/dL Albumin (3.0-4.8) g/dL Globulin gm/dL Albumin/Globulin Ratio (1.1-1.8) Triglycerides (35-160) mg/dL Cholesterol (130-200) mg/dL LDL Cholesterol Direct (0-129) mg/dL HDL Cholesterol (29-60) mg/dL TSH 3rd Generation (0.46-4.68) mIU/mL Laboratory Results - last 24 hr 06/11/17 06/11/17 06/11/17 17:23 19:02 19:50 WBC 6.1 D RBC 3.31 L Hgb 9.8 L Hct 31.2 L MCV 94.3 MCH 29.6 MCHC 31.4 RDW 14.0 Plt Count 185 MPV 11.0 PT INR APTT Sodium Potassium Chloride Carbon Dioxide Anion Gap BUN Creatinine Est GFR ( Amer) Est GFR (Non-Af Amer) POC Glucose (mg/dL) 176 H 205 H Random Glucose Calcium Phosphorus Magnesium Total Bilirubin AST ALT Alkaline Phosphatase Lactate Dehydrogenase Total Creatine Kinase CK-MB (CK-2) CK-MB (CK-2) % Troponin I Total Protein Albumin Globulin Albumin/Globulin Ratio Triglycerides Cholesterol LDL Cholesterol Direct HDL Cholesterol TSH 3rd Generation 06/11/17 06/11/17 06/11/17 19:50 19:50 21:36 WBC RBC Hgb Hct MCV MCH MCHC RDW Plt Count MPV PT 13.8 H INR 1.21 H APTT 29.0 Sodium 135 Potassium 6.7 H* D Chloride 95 L Carbon Dioxide 26 Anion Gap 20 BUN 65 H Creatinine 10.3 H* Est GFR ( Amer) 6 Est GFR (Non-Af Amer) 5 POC Glucose (mg/dL) 373 H Random Glucose 256 H Calcium 8.7 Phosphorus 8.3 H Magnesium 2.5 H Total Bilirubin 0.6 AST 92 H D ALT 70 H Alkaline Phosphatase 48 Lactate Dehydrogenase Total Creatine Kinase CK-MB (CK-2) CK-MB (CK-2) % Troponin I 0.22 H* D Total Protein 7.6 Albumin 3.8 Globulin 3.8 Albumin/Globulin Ratio 1.0 L Triglycerides Cholesterol LDL Cholesterol Direct HDL Cholesterol TSH 3rd Generation 06/12/17 06/12/17 06/12/17 07:30 07:30 07:30 WBC 6.7 RBC 3.33 L Hgb 9.8 L Hct 31.4 L MCV 94.3 MCH 29.4 MCHC 31.2 RDW 14.1 Plt Count 182 MPV 10.9 PT INR APTT Sodium 138 Potassium 4.7 Chloride 95 L Carbon Dioxide 29 Anion Gap 18 BUN 39 H Creatinine 6.1 H Est GFR ( Amer) 12 Est GFR (Non-Af Amer) 10 POC Glucose (mg/dL) Random Glucose 223 H Calcium 8.8 Phosphorus Magnesium 2.2 Total Bilirubin 1.2 AST 103 H ALT 87 H Alkaline Phosphatase 49 Lactate Dehydrogenase 710 H Total Creatine Kinase 272 H CK-MB (CK-2) 4.4 H CK-MB (CK-2) % Cancelled Troponin I 0.25 H* Total Protein 8.4 H Albumin 4.1 Globulin 4.3 Albumin/Globulin Ratio 1.0 L Triglycerides 176 H Cholesterol 86 L LDL Cholesterol Direct < 30 HDL Cholesterol 25 L TSH 3rd Generation 2.04 06/12/17 11:00 WBC RBC Hgb Hct MCV MCH MCHC RDW Plt Count MPV PT INR APTT Sodium Potassium Chloride Carbon Dioxide Anion Gap BUN Creatinine Est GFR ( Amer) Est GFR (Non-Af Amer) POC Glucose (mg/dL) 73 Random Glucose Calcium Phosphorus Magnesium Total Bilirubin AST ALT Alkaline Phosphatase Lactate Dehydrogenase Total Creatine Kinase CK-MB (CK-2) CK-MB (CK-2) % Troponin I Total Protein Albumin Globulin Albumin/Globulin Ratio Triglycerides Cholesterol LDL Cholesterol Direct HDL Cholesterol TSH 3rd Generation EKG/Cardiology Studies: Cardiology / EKG Studies 06/11/17 19:26 ELECTROCARDIOGRAM Stat Comment: Reason For Exam: chest pain, unresponsive 06/12/17 02:00 EKG [ELECTROCARDIOGRAM] Routine Comment: Reason For Exam: chest pain, elevated trop 06/12/17 10:09 ELECTROCARDIOGRAM Urgent Comment: 12 lead EKG upon arrival in unit Reason For Exam: post ptca 06/12/17 10:15 ELECTROCARDIOGRAM DAILY Comment: Reason For Exam: chest pain 06/13/17 10:15 ELECTROCARDIOGRAM DAILY Comment: Reason For Exam: chest pain Critical Care Progress Note - Nutrition Nutrition: Nutrition Category Date Time Status Heart Healthy Diet [DIET] Diets 06/12/17 Breakfast Ordered Assessment/Plan - Assessment and Plan (Free Text) Plan: Patient seen and examined on rounds with resident, agree with note with following additions/exceptions: Patient is 52yo male with PMhx of ESRD on HD, MWF, last HD yesterday evening, HTN, uncontrolled DM with complications, CAD with stents presented after [facility] [employer] called for bradycardia. Pt was started on dopamine drip, dialyzed, and today had PCI with stents to LAD. Currently afebrile, HD stable, comfortable in NAD, on Dopamine drip. ESRD on HD DM CAD s/p PCI Bradycardia Obesity Recommend: - supp o2 as needed, BIPAP at night - Panculture, UCx, BCx, check procal - BP control - HD as per renal - FS control - ASA, Plavix, Statin, - HOLD BB - ECHO - cont with Dopamine drip - GI ppx - DVT ppx - Monitor in CCU
--- NOTE | 2017-06-12 10:05 | CARD ---
APPROVED REPORT EKG Measurement Heart [id number] <Conclusion> Sinus bradycardia Left axis deviation Nonspecific T wave abnormality Abnormal ECG
--- NOTE | 2017-06-12 10:49 | CPOSTOP ---
DATE: 06/12/2017 PHYSICIAN: Jarred Erickson MD DATABASE MARKETING ANALYST: Gilberto Banuelos, certified master safe technician. TYPE OF ANESTHESIA: Moderate conscious sedation. Total dose used 2 mg of Versed, 100 of fentanyl, periodically started with 1 mg of Versed and 50 of fentanyl. PRE-PROCEDURE DIAGNOSIS: Unstable angina, Non-ST elevation myocardial infarction, status post percutaneous transluminal coronary angioplasty in the past, end-stage renal disease. PROCEDURE PERFORMED: Left heart catheterization (percutaneous transluminal coronary angioplasty of mid left anterior descending artery, percutaneous transluminal coronary angioplasty of distal left anterior descending artery with drug-eluting stent). FINDINGS: Mid LAD 70% stenosis, distal LAD 70% long tubular stenosis, FFR 0.8. FINAL DIAGNOSIS: Single-vessel disease, Mid and distal LAD POSTPROCEDURE CONDITION: The patient's condition is stable. VASCULAR ACCESS SITE: Right femoral artery (right groin). CLOSURE DEVICE APPLIED: Angio-Seal. POSTPROCEDURE: stable, good Doppler . TOTAL RADIATION DOSE: 00684.4 m iligray unit. FLUORO TIME: 10.6 minutes. Jarred Erickson MD MTDRicardo
[2017-06-12] MEDS: Multivitamin Vitamin B Complex (Nephro-Vite) Tab PO SCH (13:44)
--- NOTE | 2017-06-12 16:08 | CARD ---
APPROVED REPORT Procedure(s) performed: Left Heart Catheterization PTCA with Stenting of Distal LAD with YORDY. PTCA with Stenting of Mid LAD with YORDY FFR................. 0.80 pre PTCA FFR..................1.06 post PTCA HISTORY renal failure with dialysis, diabetes mellitus with insulin treatment , chronic lung disease, previous diagnostic cath, previous PCI (The PCI date was 10/27/2014), hypertension , cerebrovascular disease , Hx of Multiple PTCA LAD and RCA 11/01 with full blown complication of diabetes, nephropathy, Neuropathy and blindness admitted with ACS/ unstable angina. INDICATION The indication(s) include : unstable angina . CASE TECHNIQUE The patient was brought emergently to the Cardiac Catheterization Laboratory in a fasting state and was prepped and draped in a sterile manner. The right femoral groin was infiltrated with 2% Lidocaine subcutaneous anesthesia. A 6 Fr x 11 cm Jaz sheath was inserted into the right femoral artery without difficulty. Coronary angiography was performed using coronary diagnostic catheters. The left coronary system was accessed and visualized with a Diagnostic ,6 Fr JL 4 catheter. The right coronary system was accessed and visualized with a Diagnostic ,6 Fr JR 4 catheter. The left ventricle was accessed and visualized with a 6 Fr Pigtail catheter. Left ventricular/Aortic Valve gradient assessed on pullback. Left ventriculogram was performed in SALVADOR projection. Closure device was deployed with a 6 Fr Angio-Seal without any complications. The patient tolerated the procedure well and there were no complications associated with the procedure. Vessel Analysis The patient's coronary anatomy is right dominant. The left main coronary artery is a large size vessel with diffuse calcification noted throughout this vessel and without significant stenosis. The left main bifurcates to the left anterior descending and circumflex. The left anterior descending artery is a medium size vessel with diffuse calcification noted throughout this vessel and with significant stenosis. There is a 70% stenosis in the mid segment. and another 70% stenosis in Distal LAD The first diagonal branch is a large size vessel with diffuse calcification noted throughout this vessel and without significant stenosis. The second diagonal branch is a small size vessel with diffuse calcification noted throughout this vessel and without significant stenosis. The third diagonal branch is a small size vessel with diffuse calcification noted throughout this vessel and without significant stenosis. FFR ...... 0.8 pre PTCA and 1.06 post PTCA The circumflex artery is a medium size vessel with diffuse calcification noted throughout this vessel and without significant stenosis. The first obtuse marginal branch is a medium size vessel with diffuse calcification noted throughout this vessel and without significant stenosis. The right coronary artery is a large size vessel with diffuse calcification noted throughout this vessel and without significant stenosis. patent stent in mid RCA The right posterior descending artery is a medium size vessel with diffuse calcification noted throughout this vessel and without significant stenosis. Left Ventricle The left ventricle is borderline in size with normal contractility. There was no cardiomyopathy. The left ventricular ejection fraction is estimated to be 55%. The left ventricular end diastolic pressure is 25 mmHg. with respiratory variation There was no gradient across the aortic valve upon pullback. PCI Technique Lesion Anticoagulation was achieved with Heparin. Percutaneous coronary intervention was performed on the distal left anterior descending artery segment. The lesion stenosis prior to intervention was 70% with GENESIS 2 flow. A 6 Fr XB 3.5 Guide Catheter was used to engage the ostium. A 0.038 x 150 cm J Tip Interventional Guidewire was used to cross the lesion. STENT DEPLOYMENT A drug-eluting stent STENT RESOLUTE ISIDRO 2.75 X15 was inserted and inflated up to 12.00atm for 14seconds. Final angiography reveals 0 % stenosis with GENESIS 3 flow. PCI Technique Lesion 2 Percutaneous Coronary Intervention was performed on the mid left anterior descending artery segment. The lesion stenosis prior to intervention was 70% with GENESIS 2 flow. A 6 Fr XB 3.5 Guide Catheter was used to engage the ostium. A 0.038 x 150 cm J Tip Interventional Guidewire was used to cross the lesion. STENT DEPLOYMENT A drug-eluting stent STENT RESOLUTE ISIDRO 3.0 X 08 was inserted and inflated up to 14.00atm for 42seconds. POST STENT DEPLOYMENT BALLOON DILATION A Balloon catheter 3.25 x 8 mm Trek RX NC was inserted and inflated up to 14.00atm for 18seconds. Final angiography reveals 0 % stenosis with GENESIS 3 flow. Conclusion Mid and distal LAD has 70% two stenoses, But FFR ...0.8 with ACS/ unstable angina and postive troponin. Patent stent in RCA. preserved LV Fx. Ef-55%, EDP-25-40 with respiratory variation. successful PTCA with YORDY of Distal and Mid LAD, and post PTYCA FFR....1.06 Recommendations Daily ASA with Plavix for at least one year Aggressive Medical TherapyCardiac Risk Reduction Program Weight Loss Reduction Program May consider sleep study to R/o RENATA. Cc; Dr. hawthorne.
--- NOTE | 2017-06-12 17:22 | CARD ---
APPROVED REPORT EXAM: Two-dimensional and M-mode echocardiogram with Doppler and color Doppler. INDICATION Chest Pain NSTEMI 2D DIMENSIONS Left Atrium (2D)5.7 (1.6-4.0cm)IVSd1.3 (0.7-1.1cm) LVDd5.3 (3.9-5.9cm)LVOT Diameter2.1 (1.8-2.4cm) PWd1.7 (0.7-1.1cm)LVDs3.5 (2.5-4.0cm) FS (%) 33.8 %LVEF (%)62.1 (>50%) M-Mode DIMENSIONS Aortic Root3.10 (2.2-3.7cm)Aortic Cusp Exc.1.50 (1.5-2.0cm) Aortic Valve AoV Peak Bhczgekh437.0cm/sAoV VTI64.3cmAO Peak GR.38mmHg LVOT Peak Mdfdmttw964.0cm/sLVOT VTI28.40cmAO Mean GR.19mmHg TEJA (VMAX)1.85qj9PGR (VTI)1.53cm2 Mitral Valve MV E Yfemdmbw319.0cm/sMV A Vtkukxwy22.2cm/sE/A ratio2.6 TDI Lateral E' Peak V10.10cm/sMedial E' Peak V7.80cm/sE/Lateral E'15.4 E/Medial E'20.0 Pulmonary Valve PV Peak Eijlvjik06.6cm/sPV Peak Grad.2mmHg Tricuspid Valve TR Peak Jyzfxxnn303vk/sRAP RXOQINFA85qtWqOT Peak Gr.79mmHg [id number] LEFT VENTRICLE The left ventricle is normal size. There is mild concentric left ventricular hypertrophy. The left ventricular function is normal.EF-55% There is normal LV segmental wall motion. Transmitral Doppler flow pattern is Grade II-pseudonormal filling dynamics. No left ventricle thrombus noted on this study. There is no ventricular septal defect visualized. There is no left ventricular aneurysm. There is no mass noted in the left ventricle. RIGHT VENTRICLE The right ventricle is mildly dilated. There is normal right ventricular wall thickness. Systolic function is mildly reduced. ATRIA The left atrium is moderately dilated. The right atrium is mildly dilated. The interatrial septum is intact with no evidence for an atrial septal defect. AORTIC VALVE The aortic valve is calcified and displays decreased opening. There is moderate aortic regurgitation. There is mild valvular aortic stenosis. There is no aortic valvular vegetation. MITRAL VALVE The mitral valve is thickened but opens well. Mitral regurgitation is mild. There is no mitral valve stenosis. There is no evidence of mitral valve prolapse. TRICUSPID VALVE The tricuspid valve leaflets are thickened , but open well. There is moderate tricuspid regurgitation.RVSP_89 mmof Hg. There is severe pulmonary hypertension. There is no tricuspid valve stenosis. There is no tricuspid valve prolapse or vegetation. PULMONIC VALVE The pulmonic valve is mildly thickened. There is mild pulmonic valvular regurgitation. There is no pulmonic valvular stenosis. GREAT VESSELS The aortic root is normal in size. The ascending aorta is normal in size. The pulmonary artery is normal. The IVC is normal in size and collapses >50% with inspiration. PERICARDIAL EFFUSION There is no pleural effusion. There is no pericardial effusion. <Conclusion> The left ventricle is normal size. There is mild concentric left ventricular hypertrophy. The left ventricular function is normal.EF-55% There is moderate aortic regurgitation. There is mild valvular aortic stenosis. Mitral regurgitation is mild. There is moderate tricuspid regurgitation.RVSP_89 mmof Hg. There is severe pulmonary hypertension. There is mild pulmonic valvular regurgitation. The IVC is normal in size and collapses >50% with inspiration. There is no pericardial effusion. Mild by echo but no By cath.
[2017-06-12 17:27] LABS: BASO # 0.02 K/mm3 (0.0-2.0); BASO % 0.3 % (0.0-3.0); EOS % 0.5 % (1.5-5.0); GRAN # 5.72 (1.4-6.5); GRAN % 78.4 % (50.0-68.0); HEMOGLOBIN 9.8 g/dL (14.0-18.0); LYMPH % 14.1 % (22.0-35.0); MEAN CELL VOLUME 94.2 fl (80.0-105.0); MEAN CORPUSCULAR HEMOGLOBIN 30.1 pg (25.0-35.0); MEAN CORPUSCULAR HGB CONC 31.9 g/dl (31.0-37.0); MEAN PLATELET VOLUME 11.2 fl (7.0-11.0); MONO # 0.5 (0.1-0.6); MONO % 6.7 % (1.0-6.0); RBC 3.26 10^6/uL (3.5-6.1); RED CELL DISTRIBUTION WIDTH 14.2 % (11.5-14.5); WHITE BLOOD COUNT 7.3 10^3/ul (4.5-11.0)
[2017-06-12] MEDS: DOPamine 400mg/250ml D5W 400 MG/250 ML BAG IV PRN (20:03)
--- NOTE | 2017-06-12 21:59 | CARD ---
APPROVED REPORT EKG Measurement Heart [id number] <Conclusion> Normal sinus rhythm with sinus arrhythmia Nonspecific T wave abnormality Abnormal ECG
[2017-06-12] MEDS ORDERED: guaiFENesin 100 mg/5 ml Syrup UD PO ONE (22:59)
--- NOTE | 2017-06-12 23:47 | CP.PCM.PN ---
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 stents, TIA, & asthma. Pt admitted to [facility] with renal failure, dizziness (secondary to hypotension), and chest pain. Pt was transfered to ICU for elevated troponins and dopamine drip. Today, pt is seen s/p cardiac cath. Pt denies any fever, chills, chest pain, shortness of breath, diarrhea, constipation, or urinary problems. Objective - Vital Signs/Intake and Output Vital Signs (last 24 hours): Temp Pulse Resp BP Pulse Ox 97.7 F 71 22 150/57 L 99 06/12/17 06:00 06/12/17 22:20 06/12/17 22:20 06/12/17 22:00 06/12/17 22:00 Intake and Output: 06/12/17 06/13/17 18:59 06:59 Intake Total 50 200 Balance 50 200 - Medications Medications: Current Medications Aspirin (Ecotrin) 81 mg PO DAILY [facility] Atorvastatin Calcium (Lipitor) 10 mg PO DIN [facility] Last Admin: 06/12/17 18:32 Dose: 10 mg Calcium Acetate (Phoslo) 667 mg PO WM [facility] Last Admin: 06/12/17 18:32 Dose: 667 mg Clopidogrel Bisulfate (Plavix) 75 mg PO DAILY [facility] Last Admin: 06/12/17 10:53 Dose: Not Given Docusate Sodium (Colace) 100 mg PO BID [facility] Last Admin: 06/12/17 18:32 Dose: 100 mg Heparin Sodium (Porcine) (Heparin) 5,000 units SC Q12 [facility] PRN Reason: Protocol Last Admin: 06/12/17 22:53 Dose: 5,000 units Dopamine HCl/Dextrose (Dopamine 400mg/250ml D5w) 400 mg in 250 mls @ 6.804 mls/ hr IV .Q24H PRN; Protocol; 2 MCG/KG/MIN PRN Reason: TITRATE PER MD ORDER Last Admin: 06/12/17 20:03 Dose: 3 mcg/kg/min, 10.206 mls/hr Insulin Human Regular (Humulin R Low) 0 units SC ACHS [facility] PRN Reason: Protocol Last Admin: 06/12/17 22:05 Dose: Not Given Metoprolol Tartrate (Lopressor) 25 mg PO BID [facility] Last Admin: 06/11/17 17:43 Dose: 25 mg Ondansetron HCl (Zofran Inj) 4 mg IVP Q4H PRN PRN Reason: Nausea/Vomiting Last Admin: 06/12/17 15:39 Dose: 4 mg Pantoprazole Sodium (Protonix Ec Tab) 40 mg PO 0600 [facility] Vitamin B Complex/Vit C/Folic Acid (Nephro-Eva) 1 tab PO 0800 [facility] Last Admin: 06/12/17 13:44 Dose: 1 tab - Labs Labs: 06/12/17 17:10 06/12/17 17:10 PT 13.8 SECONDS (9.4-12.5) H 06/11/17 19:50 INR 1.21 (0.93-1.08) H 06/11/17 19:50 APTT 29.0 Seconds (25.1-36.5) 06/11/17 19:50 - Constitutional Appears: Chronically Ill - Head Exam Head Exam: ATRAUMATIC, NORMAL INSPECTION, NORMOCEPHALIC - Eye Exam Eye Exam: EOMI, Normal appearance, PERRL Pupil Exam: NORMAL ACCOMODATION, PERRL - ENT Exam ENT Exam: Mucous Membranes Moist, Normal Exam - Neck Exam Neck Exam: Full ROM, Normal Inspection. absent: Lymphadenopathy - Respiratory Exam Respiratory Exam: Clear to Ausculation Bilateral, NORMAL BREATHING PATTERN - Cardiovascular Exam Cardiovascular Exam: REGULAR RHYTHM, +S1, +S2. absent: Murmur - GI/Abdominal Exam GI & Abdominal Exam: Soft, Normal Bowel Sounds. absent: Tenderness - Extremities Exam Extremities Exam: Normal Capillary Refill, Normal Inspection Additional comments: R groin, dressing C/D/I , no hematoma - Back Exam Back Exam: NORMAL INSPECTION - Neurological Exam Neurological Exam: Alert, Awake, CN II-XII Intact, Normal Gait, Oriented x3 - Psychiatric Exam Psychiatric exam: Normal Affect, Normal Mood - Skin Skin Exam: Dry, Intact, Normal Color, Warm Assessment and Plan (1) Hypermagnesemia Status: Acute (2) NSTEMI (non-ST elevated myocardial infarction) Status: Acute (3) Pulmonary hypertension, moderate to severe Status: Acute (4) Chest pain Status: Acute (5) Dizziness Status: Acute (6) Renal failure Status: Acute (7) ACS (acute coronary syndrome) Status: Acute (8) Anemia Status: Acute (9) ESRD (end stage renal disease) Status: Acute - Assessment and Plan (Free Text) Plan: s/p cardiac cath in R groin (Recommendation: daily asa w. plavix x1yr, aggressive medical therapy, weight loss, consider sleep study). Dopamine drip. VTE/GI prophylaxis. PT on board. Bipap at HS. Consults: Cardio - Nephro - Dr. Malcolm Reviewed: Cardiac Cath = stent RCA, EF 55%, mild & distal LAD 70% stenoses w. stent insertion ECHO = EF 55%, mild concentric LVH, severe pulmonary hypertension ECG = ABNORMAL, SR 1AVB, min voltage criteria for LVH, may be normal variant, nonspecific T wave abnormality, prolonged QT CXR = potential residual or recurrent pulmonary venous congestion, stable cardiomegaly <Diana Kessler - Last Filed: 06/15/17 08:45> Objective - Vital Signs/Intake and Output Vital Signs (last 24 hours): Temp Pulse Resp BP Pulse Ox 98 F 62 18 162/54 H 96 06/14/17 12:00 06/14/17 12:00 06/14/17 12:00 06/14/17 12:00 06/14/17 06:00 - Labs Labs: 06/14/17 06:00 06/14/17 06:00 PT 13.8 SECONDS (9.4-12.5) H 06/11/17 19:50 INR 1.21 (0.93-1.08) H 06/11/17 19:50 APTT 29.0 Seconds (25.1-36.5) 06/11/17 19:50 Assessment and Plan - Assessment and Plan (Free Text) Plan: 52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 stents, TIA, & asthma. Pt admitted to [facility] with renal failure, dizziness (secondary to hypotension), and chest pain. Pt was transfered to ICU for elevated troponins and dopamine drip. Today, pt is seen s/p cardiac cath. Pt denies any fever, chills, chest pain, shortness of breath, diarrhea, constipation, or urinary problem, pt is seen and examined at bed side , looking comfortable . agreed all above . chart , meds and labs noted , will f/u
--- NOTE | 2017-06-12 23:51 | CARD ---
APPROVED REPORT EKG Measurement Heart [id number] <Conclusion> Normal sinus rhythm Normal ECG
--- NOTE | 2017-06-13 00:07 | CON ---
DATE: REASON FOR CONSULTATION: Acute non-STEMI, unstable angina, with coronary artery disease. BRIEF CLINICAL HISTORY: This is a 52-year-old obese male with past medical history significant for hypertension, hyperlipidemia, with a full-blown complexity of diabetes including diabetic nephropathy, diabetic retinopathy, legally blind, diabetic neuropathy, walks with a cane. 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 History of coronary artery disease, status post multiple stents, came in with complaints of nausea, vomiting, and chest pain. Patient was admitted to telemetry last night due to rapid response, heart rate went into 30 and nausea, so moved to the ICU. Patient is dialysis dependent, the troponin is 0.22, repeat troponin is 0.25, still complaining of some chest pain. He states that the chest pain goes to the back and goes to the right and the left arm. PAST MEDICAL HISTORY: Significant for diabetes, hypertension, hyperlipidemia, diabetic nephropathy, diabetic retinopathy, very poorly controlled diabetes, history of PTCA 3 to 4 years ago, history of PTCA of RCA in 10/2014, repeat cath on 12/13/2012, nonobstructive coronary artery disease. PREVIOUS CARDIAC WORKUP: As follows, history of PTCA of LAD 4 to 5 years ago, history of PTCA of RCA in 10/2014, history of repeat catheterization in 11/2015, nonobstructive coronary artery disease, patent stent. PAST SURGICAL HISTORY: Significant for AV fistula and AV shunt placement in the left arm, history of bilateral eye surgery with blurring of the vision, history of cataract 05/29/2012, history of left eye corneal transplant, retinopathy, history of cholecystectomy in the past, history of CKD, end-stage renal disease, on dialysis. Patient had last echocardiography done here on 07/12/2014 that showed trace pericardial effusion, left ventricular ejection fraction of 50% to 55%, aortic valve thickened, no aortic vegetation, no aortic stenosis, trace aortic regurgitation, trace mitral regurgitation, ilno-bi-jojflcke tricuspid regurgitation, RV systolic pressure of 40, dated 07/12/2014. CURRENT MEDICATIONS: Patient is taking at home Plavix, aspirin, metoprolol 25 mg daily and insulin. REVIEW OF SYSTEMS: As per HPI. PHYSICAL EXAMINATION: VITAL SIGNS: Height of the patient is 5 feet 6 inches, weight of the patient 202 pounds, body mass index is 32.6 kg/m2. Rest of the examination as follows, temperature afebrile, heart rate 57, blood pressure 118/48. HEENT: PERRLA. Extraocular muscles are intact. NECK: Supple. No carotid bruits. No thyromegaly. CHEST: Clear to auscultation. HEART: S1 and S2, regular. ABDOMEN: Soft. EXTREMITIES: Distended. Clubbing and cyanosis negative. LABORATORY DATA: Blood workup as follows, WBC 6.7, hemoglobin 9.8, hematocrit 31.4, platelet count 182. Chemistry shows sodium 137, potassium 4.7, chloride 95, carbon dioxide 29, anion gap of 18, BUN 39, creatinine 6.5. Troponin is 0.22, repeat troponin is 0.25. TSH 2.04. EKG on admission shows sinus rhythm, first-degree AV block, LVH, no acute ST-T changes noted. IMPRESSION: Unstable angina, rule out [id number] elevation myocardial infarction, coronary artery disease, status post stent 4 to 5 years ago in left anterior descending, 10/2014 in right coronary artery, repeat catheterization in 2015 with patent, admitted with unstable angina, diabetes, hypertension, hyperlipidemia, diabetic nephropathy, diabetic retinopathy, legally blind, full-blown diabetes, end-stage renal disease, multiple risk factors for ischemia, underlying coronary artery disease. PLAN: We will keep n.p.o., do the cardiac catheterization, further recommendations after cardiac catheterization. Discussed with the patient, discussed with patient's mother, they agreed. We will proceed for cardiac catheterization. In the interim, we will give aspirin, Plavix. Since the patient did not take the Plavix a day before, so we will give 300 mg of Plavix in the lab clerk with 325 of aspirin. The risks, benefits, and alternatives were discussed with the patient. Patient agreed and we will proceed for cardiac catheterization. We will follow with you. Thank you Dr. Kessler for providing us the opportunity in taking care of patient, Ab Gomez. Jarred Erickson MD
[2017-06-13] MEDS: Pantoprazole 40 mg EC Tab PO SCH (05:56)
[2017-06-13 06:46] LABS: HEMOGLOBIN 11.3 g/dL (14.0-18.0); MEAN CELL VOLUME 94.9 fl (80.0-105.0); MEAN CORPUSCULAR HEMOGLOBIN 30.1 pg (25.0-35.0); MEAN CORPUSCULAR HGB CONC 31.7 g/dl (31.0-37.0); MEAN PLATELET VOLUME 11.6 fl (7.0-11.0); RBC 3.75 10^6/uL (3.5-6.1); RED CELL DISTRIBUTION WIDTH 14.3 % (11.5-14.5); WHITE BLOOD COUNT 7.9 10^3/ul (4.5-11.0)
[2017-06-13 07:13] LABS: ALB/GLOB RATIO 0.9 (1.1-1.8); ALBUMIN 4.3 g/dL (3.0-4.8); CALCIUM 9.4 mg/dL (8.4-10.5)
[2017-06-13] MEDS: Multivitamin Vitamin B Complex (Nephro-Vite) Tab PO SCH (08:33)
[2017-06-13] MEDS: Insulin Reg-LOW-Coverage SC SCH ×5 (08:33→23:09)
--- NOTE | 2017-06-13 08:40 | CON ---
DATE: 06/12/2017 REASON FOR CONSULTATION: ESRD, hyperkalemia, chest pain. HISTORY OF PRESENTING ILLNESS: A 52-year-old male known to me from outpatient hemodialysis. Patient presented to the emergency room yesterday with complaints of chest pressure, also complaining of dizziness and lightheadedness. He reported an episode of syncope at home prior to presentation. In the emergency room, he was found to have low blood pressure. He was also found to have orthostatic changes. His antihypertensives were recently discontinued because of low blood pressure and orthostasis. Patient was admitted to the floor. He passed out on the floor. Had a rapid response. He was transferred to the ICU. He was also found to have severe hyperkalemia late last evening, underwent urgent dialysis. His troponin was found to be 0.22, second set showed 0.25. He underwent urgent cardiac catheterization. He was found to have 70% LAD stenosis. He received two stents. He is currently lying in bed in the ICU. He still complains of some chest pressure. He denies any shortness of breath. He denies any abdominal pain. He denies any nausea or vomiting. PAST MEDICAL AND SURGICAL HISTORY: NIDDM, hypertension, ESRD, CAD, history of PTCA and stent, left corneal transplant, anemia of chronic kidney disease, secondary hyperparathyroidism. FAMILY HISTORY: Hypertension and diabetes. SOCIAL HISTORY: No smoking, no alcohol use, no IV drug abuse. ALLERGIES: INSULIN, PENICILLIN AND MOXIFLOXACIN. REVIEW OF SYSTEMS: Complains of some chest pressure. He denies any nausea or vomiting. He complains of some abdominal pain. He denies any urinary complaints. He denies any other symptoms. All systems are reviewed. PHYSICAL EXAMINATION: GENERAL: Middle-aged male, lying in bed in the ICU. VITAL SIGNS: Blood pressure 147/57, heart rate 69, respiratory rate 16, temperature 97.7. HEENT: Normocephalic, atraumatic, positive pallor. NECK: Supple, no JVD. LUNGS: Bilateral equal air entry, bilateral equal expansion. No rales, no rhonchi. CARDIAC: S1 and S2. Regular rate and rhythm. No murmur, no rub. ABDOMEN: Obese, distended, soft, nontender, bowel sounds present. EXTREMITIES: No lower extremity edema, chronic stasis changes, shiny hairless skin. INTAKE AND OUTPUT: Not charted. LABORATORY DATA: WBC 6.7, hemoglobin 9.8, hematocrit 32, platelets 182. Sodium 138, potassium 4.7, chloride 95, CO2 29, BUN 39, creatinine 6.1, glucose 223, A1c 8.3, calcium 8.8, magnesium 2.2, AST 103, ALT 87, CPK 272. Troponin 0.25, albumin 4.1 and TSH 2.0. Cardiac catheterization report, left heart catheterization, found to have single-vessel disease, mid LAD 70% stenosis, distal LAD 70% stenosis, status post two stents. ASSESSMENT AND PLAN: 1. Acute myocardial infarction. 2. Severe hyperkalemia. 3. History of coronary artery disease, 2 prior stents. 4. Now status post two stents to the left anterior descending. 5. Non-insulin dependant diabetes mellitus. 6. Hypertension. 7. Anemia of chronic kidney disease. 8. Secondary hyperparathyroidism. PLAN: 1. Patient received urgent dialysis last night. Hyperkalemia was corrected because of the dialysis and other treatments he received. 2. Monitor closely in the ICU. 3. Dialysis again today. 4. Monitor fingersticks and maintain euglycemia. 5. Case discussed with Dr. Erickson. 6. Case discussed with ICU staff at length. 7. Case discussed with dialysis staff. More than 35 minutes spent in the care of this critically ill patient. Eva Malcolm MD
--- NOTE | 2017-06-13 10:14 | CP.CCUPN ---
<Carmine Montoya - Last Filed: 06/13/17 10:10> CCU Subjective - Physician Review Subjective (Free Text): Patient seen and examined at bedside. Patient with no complaints this morning. Patient with no acute events overnight. Patient transferred to ICU after [facility] on floor last night. Patient complains of intermittent chest pain this morning. Denies shortness of breath, nausea, vomiting, diarrhea, fever, chills. CCU Objective - Vital Signs / Intake & Output Vital Signs (Last 4 hours): Vital Signs Pulse Resp BP Pulse Ox 06/13/17 08:10 58 L 12 100 06/13/17 08:00 56 L 15 103/34 L 100 06/13/17 07:50 57 L 15 100 06/13/17 07:40 59 L 17 100 06/13/17 07:30 62 15 100 06/13/17 07:20 59 L 14 96 06/13/17 07:10 62 15 92 L 06/13/17 07:00 62 16 126/49 L 92 L 06/13/17 06:50 61 19 96 06/13/17 06:40 62 16 92 L 06/13/17 06:30 61 15 92 L 06/13/17 06:20 64 15 89 L Intake and Output (Last 8hrs): Intake & Output 06/12/17 06/13/17 06/13/17 22:59 06:59 14:59 Intake Total 200 625 94 Balance 200 625 94 Intake: IV 200 125 94 Right Wrist 85 Oral 500 Other: # Bowel Movements 1 - Physical Exam Head: Positive for: Atraumatic, Normocephalic Pupils: Positive for: PERRL Extroacular Muscles: Positive for: EOMI Conjunctiva: Positive for: Normal Mouth: Positive for: Moist Mucous Membranes Neck: Positive for: Normal Range of Motion Respiratory/Chest: Positive for: Clear to Auscultation, Good Air Exchange. Negative for: Respiratory Distress, Accessory Muscle Use Cardiovascular: Positive for: Regular Rate and Rhythm Abdomen: Positive for: Normal Bowel Sounds. Negative for: Tenderness, Distention Back: Positive for: Normal Inspection Upper Extremity: Positive for: Normal Inspection. Negative for: Cyanosis, Edema Lower Extremity: Positive for: Normal Inspection. Negative for: Edema Neurological: Positive for: GCS=15, CN II-XII Intact, Speech Normal Skin: Positive for: Warm, Dry, Normal Color. Negative for: Rashes Psychiatric: Positive for: Alert, Oriented x 3, Normal Insight, Normal Concentration - Medications Active Medications: Active Medications Generic Name Dose Route Start Last Admin Trade Name Freq PRN Reason Stop Dose Admin Aspirin 81 mg 06/13/17 10:00 06/13/17 09:33 Ecotrin PO 81 mg DAILY CARLOS Administration Atorvastatin Calcium 10 mg 06/12/17 17:00 06/12/17 18:32 Lipitor PO 10 mg DIN CARLOS Administration Calcium Acetate 667 mg 06/11/17 17:00 06/13/17 08:33 Phoslo PO 667 mg WM CARLOS Administration Clopidogrel Bisulfate 75 mg 06/12/17 10:00 06/13/17 09:33 Plavix PO 75 mg DAILY CARLOS Administration Docusate Sodium 100 mg 06/12/17 18:00 06/13/17 09:33 Colace PO 100 mg BID CARLOS Administration Heparin Sodium (Porcine) 5,000 units 06/12/17 10:00 06/13/17 09:33 Heparin SC 5,000 units Q12 CARLOS Administration Protocol Insulin Human Regular 0 units 06/11/17 16:30 06/13/17 08:33 Humulin R Low SC 4 units ACHS [facility] Administration Protocol Ondansetron HCl 4 mg 06/12/17 15:28 06/12/17 15:39 Zofran Inj IVP 4 mg Q4H PRN Administration Nausea/Vomiting Pantoprazole Sodium 40 mg 06/13/17 06:00 06/13/17 05:56 Protonix Ec Tab PO 40 mg 0600 CARLOS Administration Vitamin B Complex/Vit C/Folic Acid 1 tab 06/12/17 08:00 06/13/17 08:33 Nephro-Eva PO 1 tab 0800 CARLOS Administration - Patient Studies Lab Studies: Lab Studies 06/13/17 06/13/17 06/13/17 Range/Units 07:56 06:15 06:15 WBC (4.5-11.0) 10^3/ul RBC (3.5-6.1) 10^6/uL Hgb (14.0-18.0) g/dL Hct (42.0-52.0) % MCV (80.0-105.0) fl MCH (25.0-35.0) pg MCHC (31.0-37.0) g/dl RDW (11.5-14.5) % Plt Count (120.0-450.0) 10^3/uL MPV (7.0-11.0) fl Gran % (50.0-68.0) % Lymph % (Auto) (22.0-35.0) % [place] % (Auto) (1.0-6.0) % Eos % (Auto) (1.5-5.0) % Baso % (Auto) (0.0-3.0) % Gran # (1.4-6.5) Lymph # (Auto) (1.2-3.4) [place] # (Auto) (0.1-0.6) Eos # (Auto) (0.0-0.7) Baso # (Auto) (0.0-2.0) K/mm3 Sodium 136 (132-148) mmol/L Potassium 4.5 (3.6-5.0) mmol/L Chloride 92 L (98-107) mmol/L Carbon Dioxide 32 (21-33) mmol/L Anion Gap 16 (10-20) BUN 34 H (7-21) mg/dL Creatinine 6.6 H (0.8-1.5) mg/dl Est GFR ( Amer) 11 Est GFR (Non-Af Amer) 9 POC Glucose (mg/dL) 349 H (65-110) mg/dL Random Glucose 200 H (70-110) mg/dL Hemoglobin A1c (4.2-6.5) % Calcium 9.4 (8.4-10.5) mg/dL Phosphorus 7.4 H (2.5-4.5) mg/dL Magnesium 2.1 (1.7-2.2) mg/dL Total Bilirubin 0.8 (0.2-1.3) mg/dL AST 95 H (17-59) U/L ALT 86 H (7-56) U/L Alkaline Phosphatase 55 (38-126) U/L Total Protein 8.9 H (5.8-8.3) g/dL Albumin 4.3 (3.0-4.8) g/dL Globulin 4.6 gm/dL Albumin/Globulin Ratio 0.9 L (1.1-1.8) 06/13/17 06/12/17 06/12/17 Range/Units 06:15 21:46 18:38 WBC 7.9 (4.5-11.0) 10^3/ul RBC 3.75 (3.5-6.1) 10^6/uL Hgb 11.3 L (14.0-18.0) g/dL Hct 35.6 L (42.0-52.0) % MCV 94.9 (80.0-105.0) fl MCH 30.1 (25.0-35.0) pg MCHC 31.7 (31.0-37.0) g/dl RDW 14.3 (11.5-14.5) % Plt Count 197 (120.0-450.0) 10^3/uL MPV 11.6 H (7.0-11.0) fl Gran % (50.0-68.0) % Lymph % (Auto) (22.0-35.0) % [place] % (Auto) (1.0-6.0) % Eos % (Auto) (1.5-5.0) % Baso % (Auto) (0.0-3.0) % Gran # (1.4-6.5) Lymph # (Auto) (1.2-3.4) [place] # (Auto) (0.1-0.6) Eos # (Auto) (0.0-0.7) Baso # (Auto) (0.0-2.0) K/mm3 Sodium (132-148) mmol/L Potassium (3.6-5.0) mmol/L Chloride (98-107) mmol/L Carbon Dioxide (21-33) mmol/L Anion Gap (10-20) BUN (7-21) mg/dL Creatinine (0.8-1.5) mg/dl Est GFR ( Amer) Est GFR (Non-Af Amer) POC Glucose (mg/dL) 106 70 (65-110) mg/dL Random Glucose (70-110) mg/dL Hemoglobin A1c (4.2-6.5) % Calcium (8.4-10.5) mg/dL Phosphorus (2.5-4.5) mg/dL Magnesium (1.7-2.2) mg/dL Total Bilirubin (0.2-1.3) mg/dL AST (17-59) U/L ALT (7-56) U/L Alkaline Phosphatase (38-126) U/L Total Protein (5.8-8.3) g/dL Albumin (3.0-4.8) g/dL Globulin gm/dL Albumin/Globulin Ratio (1.1-1.8) 06/12/17 06/12/17 06/12/17 Range/Units 17:10 17:10 11:00 WBC 7.3 (4.5-11.0) 10^3/ul RBC 3.26 L (3.5-6.1) 10^6/uL Hgb 9.8 L (14.0-18.0) g/dL Hct 30.7 L (42.0-52.0) % MCV 94.2 (80.0-105.0) fl MCH 30.1 (25.0-35.0) pg MCHC 31.9 (31.0-37.0) g/dl RDW 14.2 (11.5-14.5) % Plt Count 182 (120.0-450.0) 10^3/uL MPV 11.2 H (7.0-11.0) fl Gran % 78.4 H (50.0-68.0) % Lymph % (Auto) 14.1 L (22.0-35.0) % [place] % (Auto) 6.7 H (1.0-6.0) % Eos % (Auto) 0.5 L (1.5-5.0) % Baso % (Auto) 0.3 (0.0-3.0) % Gran # 5.72 (1.4-6.5) Lymph # (Auto) 1.0 L (1.2-3.4) [place] # (Auto) 0.5 (0.1-0.6) Eos # (Auto) 0.0 (0.0-0.7) Baso # (Auto) 0.02 (0.0-2.0) K/mm3 Sodium 139 (132-148) mmol/L Potassium 4.8 (3.6-5.0) mmol/L Chloride 98 (98-107) mmol/L Carbon Dioxide 27 (21-33) mmol/L Anion Gap 19 (10-20) BUN 48 H (7-21) mg/dL Creatinine 8.4 H* D (0.8-1.5) mg/dl Est GFR ( Amer) 8 Est GFR (Non-Af Amer) 7 POC Glucose (mg/dL) 73 (65-110) mg/dL Random Glucose 90 (70-110) mg/dL Hemoglobin A1c (4.2-6.5) % Calcium 9.0 (8.4-10.5) mg/dL Phosphorus (2.5-4.5) mg/dL Magnesium (1.7-2.2) mg/dL Total Bilirubin (0.2-1.3) mg/dL AST (17-59) U/L ALT (7-56) U/L Alkaline Phosphatase (38-126) U/L Total Protein (5.8-8.3) g/dL Albumin (3.0-4.8) g/dL Globulin gm/dL Albumin/Globulin Ratio (1.1-1.8) 06/12/17 06/11/17 Range/Units 07:30 21:36 WBC (4.5-11.0) 10^3/ul RBC (3.5-6.1) 10^6/uL Hgb (14.0-18.0) g/dL Hct (42.0-52.0) % MCV (80.0-105.0) fl MCH (25.0-35.0) pg MCHC (31.0-37.0) g/dl RDW (11.5-14.5) % Plt Count (120.0-450.0) 10^3/uL MPV (7.0-11.0) fl Gran % (50.0-68.0) % Lymph % (Auto) (22.0-35.0) % [place] % (Auto) (1.0-6.0) % Eos % (Auto) (1.5-5.0) % Baso % (Auto) (0.0-3.0) % Gran # (1.4-6.5) Lymph # (Auto) (1.2-3.4) [place] # (Auto) (0.1-0.6) Eos # (Auto) (0.0-0.7) Baso # (Auto) (0.0-2.0) K/mm3 Sodium (132-148) mmol/L Potassium (3.6-5.0) mmol/L Chloride (98-107) mmol/L Carbon Dioxide (21-33) mmol/L Anion Gap (10-20) BUN (7-21) mg/dL Creatinine (0.8-1.5) mg/dl Est GFR ( Amer) Est GFR (Non-Af Amer) POC Glucose (mg/dL) 373 H (65-110) mg/dL Random Glucose (70-110) mg/dL Hemoglobin A1c 8.3 H (4.2-6.5) % Calcium (8.4-10.5) mg/dL Phosphorus (2.5-4.5) mg/dL Magnesium (1.7-2.2) mg/dL Total Bilirubin (0.2-1.3) mg/dL AST (17-59) U/L ALT (7-56) U/L Alkaline Phosphatase (38-126) U/L Total Protein (5.8-8.3) g/dL Albumin (3.0-4.8) g/dL Globulin gm/dL Albumin/Globulin Ratio (1.1-1.8) Laboratory Results - last 24 hr 06/11/17 06/12/17 06/12/17 21:36 07:30 11:00 WBC RBC Hgb Hct MCV MCH MCHC RDW Plt Count MPV Gran % Lymph % (Auto) [place] % (Auto) Eos % (Auto) Baso % (Auto) Gran # Lymph # (Auto) [place] # (Auto) Eos # (Auto) Baso # (Auto) Sodium Potassium Chloride Carbon Dioxide Anion Gap BUN Creatinine Est GFR ( Amer) Est GFR (Non-Af Amer) POC Glucose (mg/dL) 373 H 73 Random Glucose Hemoglobin A1c 8.3 H Calcium Phosphorus Magnesium Total Bilirubin AST ALT Alkaline Phosphatase Total Protein Albumin Globulin Albumin/Globulin Ratio 06/12/17 06/12/17 06/12/17 17:10 17:10 18:38 WBC 7.3 RBC 3.26 L Hgb 9.8 L Hct 30.7 L MCV 94.2 MCH 30.1 MCHC 31.9 RDW 14.2 Plt Count 182 MPV 11.2 H Gran % 78.4 H Lymph % (Auto) 14.1 L [place] % (Auto) 6.7 H Eos % (Auto) 0.5 L Baso % (Auto) 0.3 Gran # 5.72 Lymph # (Auto) 1.0 L [place] # (Auto) 0.5 Eos # (Auto) 0.0 Baso # (Auto) 0.02 Sodium 139 Potassium 4.8 Chloride 98 Carbon Dioxide 27 Anion Gap 19 BUN 48 H Creatinine 8.4 H* D Est GFR ( Amer) 8 Est GFR (Non-Af Amer) 7 POC Glucose (mg/dL) 70 Random Glucose 90 Hemoglobin A1c Calcium 9.0 Phosphorus Magnesium Total Bilirubin AST ALT Alkaline Phosphatase Total Protein Albumin Globulin Albumin/Globulin Ratio 06/12/17 06/13/17 06/13/17 21:46 06:15 06:15 WBC 7.9 RBC 3.75 Hgb 11.3 L Hct 35.6 L MCV 94.9 MCH 30.1 MCHC 31.7 RDW 14.3 Plt Count 197 MPV 11.6 H Gran % Lymph % (Auto) [place] % (Auto) Eos % (Auto) Baso % (Auto) Gran # Lymph # (Auto) [place] # (Auto) Eos # (Auto) Baso # (Auto) Sodium 136 Potassium 4.5 Chloride 92 L Carbon Dioxide 32 Anion Gap 16 BUN 34 H Creatinine 6.6 H Est GFR ( Amer) 11 Est GFR (Non-Af Amer) 9 POC Glucose (mg/dL) 106 Random Glucose 200 H Hemoglobin A1c Calcium 9.4 Phosphorus Magnesium Total Bilirubin 0.8 AST 95 H ALT 86 H Alkaline Phosphatase 55 Total Protein 8.9 H Albumin 4.3 Globulin 4.6 Albumin/Globulin Ratio 0.9 L 06/13/17 06/13/17 06:15 07:56 WBC RBC Hgb Hct MCV MCH MCHC RDW Plt Count MPV Gran % Lymph % (Auto) [place] % (Auto) Eos % (Auto) Baso % (Auto) Gran # Lymph # (Auto) [place] # (Auto) Eos # (Auto) Baso # (Auto) Sodium Potassium Chloride Carbon Dioxide Anion Gap BUN Creatinine Est GFR ( Amer) Est GFR (Non-Af Amer) POC Glucose (mg/dL) 349 H Random Glucose Hemoglobin A1c Calcium Phosphorus 7.4 H Magnesium 2.1 Total Bilirubin AST ALT Alkaline Phosphatase Total Protein Albumin Globulin Albumin/Globulin Ratio EKG/Cardiology Studies: Cardiology / EKG Studies 06/12/17 10:09 ELECTROCARDIOGRAM Urgent Comment: 12 lead EKG upon arrival in unit Reason For Exam: post ptca 06/13/17 07:49 ELECTROCARDIOGRAM Routine Comment: cad Reason For Exam: post ptca PERFORMING PHYSICIAN/PROVIDER:: Jarred Erickson 06/13/17 10:15 ELECTROCARDIOGRAM DAILY Comment: Reason For Exam: chest pain Fingerstick Blood Sugar Results: 106 Critical Care Progress Note - Nutrition Nutrition: Nutrition Category Date Time Status Heart Healthy Diet [DIET] Diets 06/12/17 Breakfast Ordered Assessment/Plan - Assessment and Plan (Free Text) Plan: 52 yo male with past medical history of ESRD (dialysis M, W, F), hypertension, diabetes, CAD, s/p cholecystectomy, left cornea transplant, cardiac stents and bronchial asthma presents with NSTEMI s/p 2 stents in the LAD. Patient weaned off of Dopamine this morning. Patient hemodynamically stable with no symptomatic bradycardia. Patient will be transferred to telemetry in afternoon as long as patient remains stable. Neuro AAOx3 Head CT pending No deficits Cardio S/p 2 stents in the LAD Hemodynamically stable Dopamine weaned off Maintain MAP >65 Continue to hold antihypertensives Pulm NC @ 4 L maintain SaO2 > 90% GI Protonix for GI PPX Renal diet Nephro ESRD, dialysis tomorrow Electrolyte imbalances corrected after dialysis Replenish electrolytes as need Maintain Euvolemia Nephrology following Endo ISS accuchecks Maintain euglycemia Heme/ID Afebrile, leukocytosis Maintain normothermia Heparin for DVT PPX Lindsay, PGY-2 <Adam Linares - Last Filed: 06/13/17 13:34> CCU Objective - Vital Signs / Intake & Output Vital Signs (Last 4 hours): Vital Signs Temp Pulse Resp BP Pulse Ox 06/13/17 12:00 98.6 F 58 L 06/13/17 11:50 58 L 20 98 06/13/17 11:40 56 L 14 96 06/13/17 11:30 56 L 17 94 L 06/13/17 11:20 65 15 94 L 06/13/17 11:10 58 L 16 93 L 06/13/17 11:00 55 L 15 109/36 L 95 06/13/17 10:50 56 L 24 93 L 06/13/17 10:40 54 L 19 99 03/27/18 10:30 65 150 H 100 06/13/17 10:20 59 L 17 95 06/13/17 10:10 65 26 H 92 L 06/13/17 10:00 57 L 16 123/45 L 100 06/13/17 09:54 60 06/13/17 09:50 59 L 16 98 06/13/17 09:40 60 20 100 Intake and Output (Last 8hrs): Intake & Output 06/12/17 06/13/17 06/13/17 22:59 06:59 14:59 Intake Total 200 625 357 Balance 200 625 357 Intake: IV 200 125 97 Right Wrist 85 3 Oral 500 260 Other: # Bowel Movements 1 1 - Medications Active Medications: Active Medications Generic Name Dose Route Start Last Admin Trade Name Freq PRN Reason Stop Dose Admin Aspirin 81 mg 06/13/17 10:00 06/13/17 09:33 Ecotrin PO 81 mg DAILY CARLOS Administration Atorvastatin Calcium 10 mg 06/12/17 17:00 06/12/17 18:32 Lipitor PO 10 mg DIN CARLOS Administration Calcium Acetate 667 mg 06/11/17 17:00 06/13/17 11:50 Phoslo PO 667 mg WM CARLOS Administration Clopidogrel Bisulfate 75 mg 06/12/17 10:00 06/13/17 09:33 Plavix PO 75 mg DAILY CARLOS Administration Docusate Sodium 100 mg 06/12/17 18:00 06/13/17 09:33 Colace PO 100 mg BID CARLOS Administration Heparin Sodium (Porcine) 5,000 units 06/12/17 10:00 06/13/17 09:33 Heparin SC 5,000 units Q12 CARLOS Administration Protocol Insulin Human Regular 0 units 06/11/17 16:30 06/13/17 11:50 Humulin R Low SC 2 units ACHS [facility] Administration Protocol Ondansetron HCl 4 mg 06/12/17 15:28 06/12/17 15:39 Zofran Inj IVP 4 mg Q4H PRN Administration Nausea/Vomiting Pantoprazole Sodium 40 mg 06/13/17 06:00 06/13/17 05:56 Protonix Ec Tab PO 40 mg 0600 CARLOS Administration Vitamin B Complex/Vit C/Folic Acid 1 tab 06/12/17 08:00 06/13/17 08:33 Nephro-Eva PO 1 tab 0800 CARLOS Administration - Patient Studies Lab Studies: Lab Studies 06/13/17 06/13/17 06/13/17 Range/Units 11:20 07:56 06:15 WBC (4.5-11.0) 10^3/ul RBC (3.5-6.1) 10^6/uL Hgb (14.0-18.0) g/dL Hct (42.0-52.0) % MCV (80.0-105.0) fl MCH (25.0-35.0) pg MCHC (31.0-37.0) g/dl RDW (11.5-14.5) % Plt Count (120.0-450.0) 10^3/uL MPV (7.0-11.0) fl Gran % (50.0-68.0) % Lymph % (Auto) (22.0-35.0) % [place] % (Auto) (1.0-6.0) % Eos % (Auto) (1.5-5.0) % Baso % (Auto) (0.0-3.0) % Gran # (1.4-6.5) Lymph # (Auto) (1.2-3.4) [place] # (Auto) (0.1-0.6) Eos # (Auto) (0.0-0.7) Baso # (Auto) (0.0-2.0) K/mm3 Sodium (132-148) mmol/L Potassium (3.6-5.0) mmol/L Chloride (98-107) mmol/L Carbon Dioxide (21-33) mmol/L Anion Gap (10-20) BUN (7-21) mg/dL Creatinine (0.8-1.5) mg/dl Est GFR ( Amer) Est GFR (Non-Af Amer) POC Glucose (mg/dL) 231 H 349 H (65-110) mg/dL Random Glucose (70-110) mg/dL Calcium (8.4-10.5) mg/dL Phosphorus 7.4 H (2.5-4.5) mg/dL Magnesium 2.1 (1.7-2.2) mg/dL Total Bilirubin (0.2-1.3) mg/dL AST (17-59) U/L ALT (7-56) U/L Alkaline Phosphatase (38-126) U/L Total Protein (5.8-8.3) g/dL Albumin (3.0-4.8) g/dL Globulin gm/dL Albumin/Globulin Ratio (1.1-1.8) 06/13/17 06/13/17 06/12/17 Range/Units 06:15 06:15 21:46 WBC 7.9 (4.5-11.0) 10^3/ul RBC 3.75 (3.5-6.1) 10^6/uL Hgb 11.3 L (14.0-18.0) g/dL Hct 35.6 L (42.0-52.0) % MCV 94.9 (80.0-105.0) fl MCH 30.1 (25.0-35.0) pg MCHC 31.7 (31.0-37.0) g/dl RDW 14.3 (11.5-14.5) % Plt Count 197 (120.0-450.0) 10^3/uL MPV 11.6 H (7.0-11.0) fl Gran % (50.0-68.0) % Lymph % (Auto) (22.0-35.0) % [place] % (Auto) (1.0-6.0) % Eos % (Auto) (1.5-5.0) % Baso % (Auto) (0.0-3.0) % Gran # (1.4-6.5) Lymph # (Auto) (1.2-3.4) [place] # (Auto) (0.1-0.6) Eos # (Auto) (0.0-0.7) Baso # (Auto) (0.0-2.0) K/mm3 Sodium 136 (132-148) mmol/L Potassium 4.5 (3.6-5.0) mmol/L Chloride 92 L (98-107) mmol/L Carbon Dioxide 32 (21-33) mmol/L Anion Gap 16 (10-20) BUN 34 H (7-21) mg/dL Creatinine 6.6 H (0.8-1.5) mg/dl Est GFR ( Amer) 11 Est GFR (Non-Af Amer) 9 POC Glucose (mg/dL) 106 (65-110) mg/dL Random Glucose 200 H (70-110) mg/dL Calcium 9.4 (8.4-10.5) mg/dL Phosphorus (2.5-4.5) mg/dL Magnesium (1.7-2.2) mg/dL Total Bilirubin 0.8 (0.2-1.3) mg/dL AST 95 H (17-59) U/L ALT 86 H (7-56) U/L Alkaline Phosphatase 55 (38-126) U/L Total Protein 8.9 H (5.8-8.3) g/dL Albumin 4.3 (3.0-4.8) g/dL Globulin 4.6 gm/dL Albumin/Globulin Ratio 0.9 L (1.1-1.8) 06/12/17 06/12/17 06/12/17 Range/Units 18:38 17:10 17:10 WBC 7.3 (4.5-11.0) 10^3/ul RBC 3.26 L (3.5-6.1) 10^6/uL Hgb 9.8 L (14.0-18.0) g/dL Hct 30.7 L (42.0-52.0) % MCV 94.2 (80.0-105.0) fl MCH 30.1 (25.0-35.0) pg MCHC 31.9 (31.0-37.0) g/dl RDW 14.2 (11.5-14.5) % Plt Count 182 (120.0-450.0) 10^3/uL MPV 11.2 H (7.0-11.0) fl Gran % 78.4 H (50.0-68.0) % Lymph % (Auto) 14.1 L (22.0-35.0) % [place] % (Auto) 6.7 H (1.0-6.0) % Eos % (Auto) 0.5 L (1.5-5.0) % Baso % (Auto) 0.3 (0.0-3.0) % Gran # 5.72 (1.4-6.5) Lymph # (Auto) 1.0 L (1.2-3.4) [place] # (Auto) 0.5 (0.1-0.6) Eos # (Auto) 0.0 (0.0-0.7) Baso # (Auto) 0.02 (0.0-2.0) K/mm3 Sodium 139 (132-148) mmol/L Potassium 4.8 (3.6-5.0) mmol/L Chloride 98 (98-107) mmol/L Carbon Dioxide 27 (21-33) mmol/L Anion Gap 19 (10-20) BUN 48 H (7-21) mg/dL Creatinine 8.4 H* D (0.8-1.5) mg/dl Est GFR ( Amer) 8 Est GFR (Non-Af Amer) 7 POC Glucose (mg/dL) 70 (65-110) mg/dL Random Glucose 90 (70-110) mg/dL Calcium 9.0 (8.4-10.5) mg/dL Phosphorus (2.5-4.5) mg/dL Magnesium (1.7-2.2) mg/dL Total Bilirubin (0.2-1.3) mg/dL AST (17-59) U/L ALT (7-56) U/L Alkaline Phosphatase (38-126) U/L Total Protein (5.8-8.3) g/dL Albumin (3.0-4.8) g/dL Globulin gm/dL Albumin/Globulin Ratio (1.1-1.8) Laboratory Results - last 24 hr 06/12/17 06/12/17 06/12/17 17:10 17:10 18:38 WBC 7.3 RBC 3.26 L Hgb 9.8 L Hct 30.7 L MCV 94.2 MCH 30.1 MCHC 31.9 RDW 14.2 Plt Count 182 MPV 11.2 H Gran % 78.4 H Lymph % (Auto) 14.1 L [place] % (Auto) 6.7 H Eos % (Auto) 0.5 L Baso % (Auto) 0.3 Gran # 5.72 Lymph # (Auto) 1.0 L [place] # (Auto) 0.5 Eos # (Auto) 0.0 Baso # (Auto) 0.02 Sodium 139 Potassium 4.8 Chloride 98 Carbon Dioxide 27 Anion Gap 19 BUN 48 H Creatinine 8.4 H* D Est GFR ( Amer) 8 Est GFR (Non-Af Amer) 7 POC Glucose (mg/dL) 70 Random Glucose 90 Calcium 9.0 Phosphorus Magnesium Total Bilirubin AST ALT Alkaline Phosphatase Total Protein Albumin Globulin Albumin/Globulin Ratio 06/12/17 06/13/17 06/13/17 21:46 06:15 06:15 WBC 7.9 RBC 3.75 Hgb 11.3 L Hct 35.6 L MCV 94.9 MCH 30.1 MCHC 31.7 RDW 14.3 Plt Count 197 MPV 11.6 H Gran % Lymph % (Auto) [place] % (Auto) Eos % (Auto) Baso % (Auto) Gran # Lymph # (Auto) [place] # (Auto) Eos # (Auto) Baso # (Auto) Sodium 136 Potassium 4.5 Chloride 92 L Carbon Dioxide 32 Anion Gap 16 BUN 34 H Creatinine 6.6 H Est GFR ( Amer) 11 Est GFR (Non-Af Amer) 9 POC Glucose (mg/dL) 106 Random Glucose 200 H Calcium 9.4 Phosphorus Magnesium Total Bilirubin 0.8 AST 95 H ALT 86 H Alkaline Phosphatase 55 Total Protein 8.9 H Albumin 4.3 Globulin 4.6 Albumin/Globulin Ratio 0.9 L 06/13/17 06/13/17 06/13/17 06:15 07:56 11:20 WBC RBC Hgb Hct MCV MCH MCHC RDW Plt Count MPV Gran % Lymph % (Auto) [place] % (Auto) Eos % (Auto) Baso % (Auto) Gran # Lymph # (Auto) [place] # (Auto) Eos # (Auto) Baso # (Auto) Sodium Potassium Chloride Carbon Dioxide Anion Gap BUN Creatinine Est GFR ( Amer) Est GFR (Non-Af Amer) POC Glucose (mg/dL) 349 H 231 H Random Glucose Calcium Phosphorus 7.4 H Magnesium 2.1 Total Bilirubin AST ALT Alkaline Phosphatase Total Protein Albumin Globulin Albumin/Globulin Ratio EKG/Cardiology Studies: Cardiology / EKG Studies 06/13/17 07:49 ELECTROCARDIOGRAM Routine Comment: cad Reason For Exam: post ptca PERFORMING PHYSICIAN/PROVIDER:: Jarred Erickson 06/13/17 10:15 ELECTROCARDIOGRAM DAILY Comment: Reason For Exam: chest pain 06/13/17 12:39 EKG [ELECTROCARDIOGRAM] Stat Comment: Reason For Exam: chest heaviness PRE OP:: N Does Patient Have a Pacemaker?: No PERFORMING PHYSICIAN/PROVIDER:: Jarred Erickson Critical Care Progress Note - Nutrition Nutrition: Nutrition Category Date Time Status Heart Healthy Diet [DIET] Diets 06/12/17 Breakfast Ordered Attending/Attestation - Attestation I have personally seen and examined this patient.: Yes I have fully participated in the care of the patient.: Yes I have reviewed all pertinent clinical information: Yes Notes (Text): 06/13/17 13:32 52 yo with ACS, s/p 2 coronary stents this admission, hemodynamically and respiratory stable. Off of Dopamine for a several hours now with HR 58-59 and BPs>110. Alert awake and oriented x 3. Had one episode of substernal heacyness, resolved with sl nitro-->no changes on EKG and toponin is pending. ok to downgrade to tele ccm time 40 min
--- NOTE | 2017-06-13 15:40 | PN ---
DATE: SUBJECTIVE: The patient is currently seen sitting in a chair in CCU bed 2. He has been downgraded and will likely be transferred to telemetry later today. He is status post placement of two stents in the LAD in the setting of acute NSTEMI and unstable angina. The patient's last dialysis was yesterday. He is scheduled for dialysis again tomorrow. MEDICATIONS: Medication list reviewed. The patient is on Colace, Ecotrin, heparin, insulin, Lipitor, Nephro-Eva, PhosLo, Plavix, Protonix and Zofran p.r.n. OBJECTIVE: INTAKE/OUTPUT: Intake 875, output not charted. VITAL SIGNS: Blood pressure is 123/45, heart rate is 56, respiratory rate is 24, pulse ox is 93% with a temperature of 97.7. HEENT: Shows him to be normocephalic, atraumatic. Conjunctivae are pink. Sclerae are nonicteric. NECK: Supple. No neck vein distention. CHEST: Clear to auscultation and percussion. No rales, rhonchi or wheezing. CARDIOVASCULAR: Shows a regular rate and rhythm with /AI/MR/TR/PI. No S3. No S4. No rub. ABDOMEN: Soft. Bowel sounds normal. No rebound, guarding or masses. EXTREMITIES: Distal lower extremity pulses are 1 to 2+ plus bilaterally. Extremities showed no cyanosis, no clubbing, no edema. Positive left upper extremity AV fistula. LABORATORY DATA AND IMAGING: CBC today white blood cell count is 7.9 with a hemoglobin of 11.3 and platelet count of 197,000. Chemistries today showed normal electrolytes. BUN 34 with a creatinine of 6.6, glucose is 200. Calcium 9.4. Phosphorus is 7.4. The patient is back on binder therapy. Magnesium 2.1. Mild elevation of his liver enzymes. Albumin level is 4.3. Echocardiogram done on 06/12/2017 showed valvular heart disease with aortic stenosis, aortic insufficiency, mitral regurgitation, tricuspid regurgitation, pulmonic insufficiency. Ejection fraction is 55%. The patient has severe pulmonary hypertension. ASSESSMENT: 1. End-stage renal disease. The patient will continue routine dialysis. He is scheduled for dialysis tomorrow. 2. History of insulin-dependent diabetes mellitus with diabetic nephropathy, diabetic retinopathy and diabetic neuropathy. The patient will continue on insulin therapy as noted above. 3. Acute [id number]-[id number] myocardial infarction in the setting of unstable angina with a history of atherosclerotic heart disease with previous percutaneous transluminal coronary angioplasty and stents. The patient had a 70% blockage of the left anterior descending status post placement of two stents. 4. History of pulmonary hypertension. 5. History of valvular heart disease as noted above. 6. History of anemia secondary to chronic kidney disease. The patient will receive Aranesp per protocol on dialysis. 7. History of secondary hyperparathyroidism. Elevated phosphorus level as noted above. The patient is currently back on binder therapy, PhosLo 667 mg three times a day with meals. 8. History of hyperlipidemia. The patient should continue statin therapy and low cholesterol, low-fat diet. PLAN: 1. Hemodialysis for tomorrow. 2. Agree with transfer out of the CCU. 3. Continued cardiac followup. 4. Continue renal diet and binder therapy. 5. Hemodialysis as per routine tomorrow in the hospital dialysis unit. Toy Martinez MD
--- NOTE | 2017-06-13 16:09 | PN ---
DATE: 06/13/2017 REASON FOR CONSULTATION: Followup acute non-STEMI, unstable angina, history of coronary artery disease, status post primary angioplasty yesterday of LAD with 2 drug-eluting stent, FFR was done. SUBJECTIVE: The patient denies any chest pain, shortness of breath, any palpitations. Denies any nausea, denies any vomiting. Denies any dizziness. OBJECTIVE: GENERAL: Not in apparent distress, lying flat on the bed. VITAL SIGNS: Temperature afebrile, heart rate 58, blood pressure 103/34. HEENT: PERRLA. Extraocular muscles intact. NECK: Supple. No carotid bruit or thyromegaly. CHEST: Clear to auscultation. HEART: S1 and S2 regular. ABDOMEN: Soft. EXTREMITIES: Clubbing and cyanosis negative. Right femoroiliac access site looks okay, no hematoma noted. Distal pulse 1+. Both dorsalis pedis and posterior tibial 1+. LABORATORY DATA: Blood workup as follows: WBC , hemoglobin , hematocrit 35.6, platelet count 197. Chemistry shows sodium 136, potassium 4.5, chloride 90, carbon dioxide 32, anion gap of 19, BUN 34, creatinine 6.6, total protein is 8.9, albumin 4.3, albumin globulin ratio of 0.9. EKG today is pending. IMPRESSION: Status post non-ST segment myocardial infarction, status post percutaneous transluminal coronary angioplasty of left anterior descending, mid and distal 70% stenosis of the FFR was 0.8, unstable angina, diabetes, hypertension, hyperlipidemia, complication, diabetes including diabetic nephropathy, retinopathy, nephropathy, neuropathy, walks with a walker. 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 Status post percutaneous transluminal coronary angioplasty of left anterior descending yesterday done. The patient had echo done post percutaneous coronary intervention that shows ejection fraction of 55%, mild valvular aortic stenosis, mild mitral regurgitation, moderate tricuspid regurgitation, right ventricular systolic pressure 89, severe pulmonary hypertension. During anesthesia, percutaneous transluminal coronary angioplasty respiratory background of the patient shows obstructive sleep apnea type. RECOMMENDATIONS: 1. Discussed with the patient the compliance of the medications aspirin, Plavix mandatory for any extended period of the time. 2. Discontinue dopamine, monitor for the heart rate, out of bed to chair, to see the patient's bradycardia. We will discontinue beta-valerie because of the significant bradycardia. Continue aspirin, continue Plavix, hold metoprolol because of the bradycardia, the patient had a rapid response, heart rate was 39 before coming to the cath lab manager, ambulated, heart rate made stable, possible discharge home in a day or two. We will follow with you. We will get EKG this morning. Most likely this nausea, vomiting feeling is secondary to ischemia because after the LAD stent, no more nausea or vomiting has been reported by the patient. Transferred to the floor, out of bed to chair. We will discontinue dopamine, out of bed to chair, ambulate. We will get the physical therapy and told the nurse, if the patient remained stable, possible discharge, transfer to the telemetry and we will write in the physician nurse communication. Discontinue dopamine. Transfer to tele by afternoon and discontinue Lopressor because of bradycardia. Evaluation for sleep apnea. We will put a consult for sleep apnea. We will put pulmonary consult for Dr. Escalera to rule out obstructive sleep apnea. Thank you, Dr. Kessler, for providing us the opportunity in taking care of the patient, Jason Berger. Jarred Erickson MD
--- NOTE | 2017-06-13 20:44 | CARD ---
APPROVED REPORT EKG Measurement Heart [id number] <Conclusion> Sinus bradycardia Left axis deviation T wave abnormality, consider lateral ischemia Abnormal ECG
--- NOTE | 2017-06-13 20:54 | CARD ---
APPROVED REPORT EKG Measurement Heart [id number] <Conclusion> Normal sinus rhythm T wave abnormality, consider lateral ischemia Prolonged QT Abnormal ECG
[2017-06-14] MEDS: Albuterol-Ipratrop 3 mg / 0.5 (3 ml) UD IH SCH ×3 (03:00→13:30)
[2017-06-14 06:06] VITALS: O2SAT 96
[2017-06-14 06:45] LABS: BASO # 0.01 K/mm3 (0.0-2.0); BASO % 0.1 % (0.0-3.0); EOS # 0.1 (0.0-0.7); EOS % 1.3 % (1.5-5.0); GRAN # 4.7 (1.4-6.5); GRAN % 67.3 % (50.0-68.0); HEMOGLOBIN 9.6 g/dL (14.0-18.0); LYMPH # 1.6 (1.2-3.4); LYMPH % 22.7 % (22.0-35.0); MEAN CORPUSCULAR HEMOGLOBIN 29.4 pg (25.0-35.0); MEAN CORPUSCULAR HGB CONC 32.3 g/dl (31.0-37.0); MEAN PLATELET VOLUME 11.3 fl (7.0-11.0); MONO # 0.6 (0.1-0.6); MONO % 8.6 % (1.0-6.0); RBC 3.26 10^6/uL (3.5-6.1); RED CELL DISTRIBUTION WIDTH 14.1 % (11.5-14.5)
[2017-06-14 07:06] LABS: MEAN CELL VOLUME 91.1 fl (80.0-105.0)
[2017-06-14 07:10] LABS: ALB/GLOB RATIO 0.9 (1.1-1.8); ALBUMIN 3.8 g/dL (3.0-4.8); CALCIUM 9.4 mg/dL (8.4-10.5)
--- NOTE | 2017-06-14 08:08 | CON ---
DATE: 06/13/2017 PULMONARY CONSULTATION REFERRING PHYSICIAN: Dr. Kessler. REASON FOR CONSULTATION: Chronic obstructive lung disease, sleep apnea syndrome. HISTORY OF PRESENT ILLNESS: This is a 52-year-old gentleman well known to me with multiple medical issues including chronic obstructive lung disease, obstructive sleep apnea syndrome, diabetes, hypertension, hyperlipidemia, renal failure, dialysis dependent, legally blind, came in with nausea, chest pain and vomiting, was admitted to telemetry, became symptomatically bradycardic, transferred to Intensive Care Unit. Troponin was positive. Seen by Cardiology. Had a cardiac cath done with placing of a stent. Presently, sitting up in a chair, feels okay. Has known sleep apnea syndrome, was noncompliant, wanted to take the CPAP machine off, right now having snoring, daytime sleepy and tired. No hemoptysis or emesis. No hematuria, diarrhea reported. PAST MEDICAL HISTORY: As per history of present illness. ALLERGIES: TO QUINOLONES AND PENICILLIN. SOCIAL HISTORY: Nonsmoker, nondrinker. FAMILY HISTORY: Positive for diabetes, hypertension, sleep apnea syndrome. MEDICATIONS: He is on Colace 100 mg twice a day, aspirin 81 mg daily, heparin 5000 units subcu every 12 hours, insulin coverage, Lipitor 10 mg daily, multivitamins daily, calcium acetate 667 mg with meals, Plavix 75 mg daily, Protonix 40 mg daily, Zofran p.r.n. basis. REVIEW OF SYSTEMS: No headache, no rhinitis. Mild cough and shortness breath. At present, there is no chest pain. No nausea, no vomiting, no diarrhea. Does have some leg swelling. PHYSICAL EXAMINATION: GENERAL: Sitting at the side of the bed, no acute distress. VITAL SIGNS: Temperature is 98, heart rate is 60, respiratory rate is 16, blood pressure 109/48, pulse ox 100% on nasal cannula. HEENT: Moist mucous membrane. Crowded airway. Mallampati score is IV. NECK: Short thick neck. LUNGS: Have a few scattered rhonchi, prolonged expiratory phase. HEART: S1 and S2. ABDOMEN: Soft and nontender. No organomegaly. EXTREMITIES: Trace edema. NEUROLOGIC: Awake, alert, follows simple commands. LABORATORY DATA: Shows hemoglobin 11.3, hematocrit 35.6, WBC 7.9, platelet is 197. Sodium 136, potassium 4.5, chloride 92, bicarbonate 32, BUN 34, creatinine 6.6, glucose 200, calcium is 9.4, phosphorus is 7.4, magnesium 2.1, AST 95, ALT 86, alk phos is 55. Troponin 0.51. Albumin 4.3. IMPRESSION AND PLAN: Chronic obstructive lung disease, obstructive sleep apnea syndrome, coronary artery disease, history of coronary stent, hypertension, diabetes, renal failure, dialysis dependent, admitted with non-Q wave myocardial infarction, ended up with two stents including left anterior descending stent, noncompliant with continuous positive airway pressure, which was taken away by the vendor. We will place him on continuous positive airway pressure tonight 7-cm with 30% oxygen while sleeping. Keep head at 45 degrees. Add inhaled bronchodilator, also add Singulair 10 mg at bedtime. Gastric prophylaxis. Sequential compression device to lower extremity. Fall precaution. Thank you and we will follow with you. Jarred Escalera MD
--- NOTE | 2017-06-14 08:35 | PN ---
DATE: 06/13/2017 SUBJECTIVE: The is seen and examined at the bedside. He is in the CCU. I saw him early in the morning sitting in the bed, looking comfortable. No nausea, vomiting, or diarrhea. No hematuria or hematochezia. No swelling of the legs. No more chest pain. No headache or dizziness. Feeling better. No fever. No chills. PHYSICAL EXAMINATION: VITAL SIGNS: Blood pressure 123/45, heart rate 56, respiratory rate 24, and pulse oximetry 93% with a temperature of 97.7. HEENT: Head: Normocephalic, atraumatic. Eyes: PERRLA. Extraocular movements are intact. Conjunctivae are clear. Nose patent. Mucous membranes are moist. NECK: Supple. No carotid bruit. No JVD or thyromegaly. CHEST: Bilaterally symmetrical. HEART: S1 and S2 positive. LUNGS: Clear to auscultation. ABDOMEN: Soft. Bowel sounds are positive. No organomegaly. EXTREMITIES: No edema. No cyanosis. NEUROLOGIC: The patient is awake and alert. Moving all 4 extremities. No focal deficits. LABORATORY DATA: White blood cells 7.9, hemoglobin 13.3, hematocrit 40, and platelets 197,000. BUN 34, creatinine 6.6, phosphorus 7.4, magnesium 2.1, and albumin of 4.3. MEDICATIONS: Colace, Ecotrin, heparin, insulin, Lipitor, Nephro-Eva, PhosLo, Plavix, Protonix, and Zofran. ASSESSMENT AND PLAN: The patient is a 65-year-old male with acute non-ST elevation myocardial infarction and unstable angina, status post catheterization, got 2 stents in the left anterior descending artery. He has a history of already 2 stents placed and stated that he is getting hemodialysis. He has insulin-dependent diabetes mellitus with diabetic nephropathy, diabetic retinopathy, and diabetic neuropathy - getting insulin, history of pulmonary hypertension, valvular heart disease, anemia, chronic kidney disease. The patient is getting Ancef per protocol on dialysis. History of secondary hyperparathyroidism, and history of hypercholesterolemia. The patient will get hemodialysis tomorrow. Appreciated Dr. Toy Martinez and Intensive Care Unit team's input. Continue cardiac followup. Renal diet as tolerated. Gastric and deep venous thrombosis prophylaxis. Appreciated Dr. Erickson's input. Repeat labs. We will follow up. Diana Kessler MD [facility] # [id number] [facility]
[2017-06-14] MEDS ORDERED: Darbepoetin Alfa 25 mcg/ml Inj IVP ONE (08:50)
[2017-06-14] MEDS: Insulin Reg-LOW-Coverage SC SCH (10:24)
[2017-06-14] MEDS: Pantoprazole 40 mg EC Tab PO SCH (10:24)
[2017-06-14] MEDS: Multivitamin Vitamin B Complex (Nephro-Vite) Tab PO SCH (10:29)
[2017-06-14 12:54] VITALS: BP 162/54; PULSE 62; RESP 18; TEMP 98
--- NOTE | 2017-06-14 14:57 | CP.PCM.DIS ---
<AnnalisaLynricky Louis - Last Filed: 06/14/17 14:50> Provider - Provider Date of Admission: 06/11/17 09:27 Attending physician: Diana Kessler MD Primary care physician: Diana Kessler MD Consults: Cardio - Nephro - Dr. Malcolm Pulmo - Dr. Escalera Time Spent in preparation of Discharge (in minutes): 40 Diagnosis - Discharge Diagnosis (1) Hypermagnesemia Status: Acute (2) NSTEMI (non-ST elevated myocardial infarction) Status: Acute (3) Pulmonary hypertension, moderate to severe Status: Acute (4) Chest pain Status: Acute (5) Dizziness Status: Acute (6) Renal failure Status: Acute (7) ACS (acute coronary syndrome) Status: Acute (8) Anemia Status: Acute (9) ESRD (end stage renal disease) Status: Acute Hospital Course - Lab Results Lab Results: Most Recent Lab Values WBC 7.0 10^3/ul (4.5-11.0) 06/14/17 06:00 RBC 3.26 10^6/uL (3.5-6.1) L 06/14/17 06:00 Hgb 9.6 g/dL (14.0-18.0) L 06/14/17 06:00 Hct 29.7 % (42.0-52.0) L 06/14/17 06:00 MCV 91.1 fl (80.0-105.0) D 06/14/17 06:00 MCH 29.4 pg (25.0-35.0) 06/14/17 06:00 MCHC 32.3 g/dl (31.0-37.0) 06/14/17 06:00 RDW 14.1 % (11.5-14.5) 06/14/17 06:00 Plt Count 160 10^3/uL (120.0-450.0) 06/14/17 06:00 MPV 11.3 fl (7.0-11.0) H 06/14/17 06:00 Gran % 67.3 % (50.0-68.0) 06/14/17 06:00 Lymph % (Auto) 22.7 % (22.0-35.0) 06/14/17 06:00 [place] % (Auto) 8.6 % (1.0-6.0) H 06/14/17 06:00 Eos % (Auto) 1.3 % (1.5-5.0) L 06/14/17 06:00 Baso % (Auto) 0.1 % (0.0-3.0) 06/14/17 06:00 Gran # 4.70 (1.4-6.5) 06/14/17 06:00 Lymph # (Auto) 1.6 (1.2-3.4) 06/14/17 06:00 [place] # (Auto) 0.6 (0.1-0.6) 06/14/17 06:00 Eos # (Auto) 0.1 (0.0-0.7) 06/14/17 06:00 Baso # (Auto) 0.01 K/mm3 (0.0-2.0) 06/14/17 06:00 PT 13.8 SECONDS (9.4-12.5) H 06/11/17 19:50 INR 1.21 (0.93-1.08) H 06/11/17 19:50 APTT 29.0 Seconds (25.1-36.5) 06/11/17 19:50 Sodium 135 mmol/L (132-148) 06/14/17 06:00 Potassium 4.5 mmol/L (3.6-5.0) 06/14/17 06:00 Chloride 92 mmol/L (98-107) L 06/14/17 06:00 Carbon Dioxide 25 mmol/L (21-33) 06/14/17 06:00 Anion Gap 22 (10-20) H 06/14/17 06:00 BUN 61 mg/dL (7-21) H 06/14/17 06:00 Creatinine 8.9 mg/dl (0.8-1.5) H* D 06/14/17 06:00 Est GFR ( Amer) 8 06/14/17 06:00 Est GFR (Non-Af Amer) 6 06/14/17 06:00 POC Glucose (mg/dL) 168 mg/dL (65-110) H 06/13/17 17:29 Random Glucose 134 mg/dL (70-110) H 06/14/17 06:00 Hemoglobin A1c 8.3 % (4.2-6.5) H 06/12/17 07:30 Calcium 9.4 mg/dL (8.4-10.5) 06/14/17 06:00 Phosphorus 7.7 mg/dL (2.5-4.5) H 06/14/17 06:00 Magnesium 2.2 mg/dL (1.7-2.2) 06/14/17 06:00 Total Bilirubin 0.8 mg/dL (0.2-1.3) 06/14/17 06:00 AST 62 U/L (17-59) H D 06/14/17 06:00 ALT 61 U/L (7-56) H 06/14/17 06:00 Alkaline Phosphatase 51 U/L (38-126) 06/14/17 06:00 Lactate Dehydrogenase 710 U/L (333-699) H 06/12/17 07:30 Total Creatine Kinase 272 U/L (35-230) H 06/12/17 07:30 CK-MB (CK-2) 4.4 ng/mL (0.0-3.6) H 06/12/17 07:30 CK-MB (CK-2) % 1.3 % (2.5-3.0) L 06/11/17 07:30 Troponin I 0.51 ng/mL H* D 06/13/17 12:50 NT-Pro-B Natriuret Pep 46368 pg/mL (0-450) H 06/11/17 07:30 Total Protein 8.1 g/dL (5.8-8.3) 06/14/17 06:00 Albumin 3.8 g/dL (3.0-4.8) 06/14/17 06:00 Globulin 4.2 gm/dL 06/14/17 06:00 Albumin/Globulin Ratio 0.9 (1.1-1.8) L 06/14/17 06:00 Triglycerides 176 mg/dL (35-160) H 06/12/17 07:30 Cholesterol 86 mg/dL (130-200) L 06/12/17 07:30 LDL Cholesterol Direct < 30 mg/dL (0-129) 06/12/17 07:30 HDL Cholesterol 25 mg/dL (29-60) L 06/12/17 07:30 TSH 3rd Generation 2.04 mIU/mL (0.46-4.68) 06/12/17 07:30 - Hospital Course Hospital Course: 52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 stents, TIA, & asthma. Pt admitted to [facility] [place] with renal failure, dizziness (secondary to hypotension), and chest pain. After becoming unresponsive, pt was found to have elevated serial tropins, NSTEMI and hypotension. Pt was transfered to ICU for elevated troponins and dopamine drip. On 06/12, pt went for cardiac cath through R groin with new cardiac stent insertion. Per Questioned Documents Examiner, recommendation: daily asa w. plavix x1yr, aggressive medical therapy, weight loss, consider sleep study. Pt is cleared for discharge home and instructed to follow up with Pulmonary doctor for Bipap at . Reviewed: Cardiac Cath = stent RCA, EF 55%, mild & distal LAD 70% stenoses w. stent insertion ECHO = EF 55%, mild concentric LVH, severe pulmonary hypertension ECG = ABNORMAL, SR 1AVB, min voltage criteria for LVH, may be normal variant, nonspecific T wave abnormality, prolonged QT CXR = potential residual or recurrent pulmonary venous congestion, stable cardiomegaly - Date & Time of H&P Date of H&P: 06/14/17 Time of H&P: 11:30 Discharge Exam - Head Exam Head Exam: ATRAUMATIC, NORMAL INSPECTION, NORMOCEPHALIC - Eye Exam Eye Exam: EOMI, Normal appearance - ENT Exam ENT Exam: Mucous Membranes Moist - Neck Exam Neck exam: Full Rom - Respiratory Exam Respiratory Exam: Clear to PA & Lateral, NORMAL BREATHING PATTERN, UNREMARKABLE - GI/Abdominal Exam GI & Abdominal Exam: Normal Bowel Sounds, Soft, Unremarkable - Back Exam Back exam: FULL ROM Additional comments: L AV fistula - Neurological Exam Neurological exam: Alert, CN II-XII Intact, Normal Gait, Oriented x3 - Psychiatric Exam Psychiatric exam: Normal Affect, Normal Mood - Skin Skin Exam: Dry, Intact, Normal Color, Warm Discharge Plan - Discharge Medications Prescriptions: Aspirin [Ecotrin] 81 mg PO DAILY #30 tabec Atorvastatin [Lipitor] 10 mg PO DIN #30 tab Clopidogrel [Plavix] 75 mg PO DAILY #30 tab - Follow Up Plan Condition: FAIR Disposition: HOME/ ROUTINE Instructions: Coronary Heart Disease, Coronary Stenting, Chest Pain, High Blood Pressure (DC), Myocardial Infarction (DC), Myocardial Infarction (GEN), Chest Pain (DC), Chest Pain (GEN), Asthma (DC), Asthma (GEN), Renal Failure Diet (DC), Altered Mental Status (GEN) Referrals: Daina Kessler MD [Primary Care Provider] - <Diana Kessler - Last Filed: 06/15/17 09:02> Provider - Provider Date of Admission: 06/11/17 09:27 Attending physician: Diana Kessler MD Primary care physician: Diana Kessler MD Hospital Course - Lab Results Lab Results: Most Recent Lab Values WBC 7.0 10^3/ul (4.5-11.0) 06/14/17 06:00 RBC 3.26 10^6/uL (3.5-6.1) L 06/14/17 06:00 Hgb 9.6 g/dL (14.0-18.0) L 06/14/17 06:00 Hct 29.7 % (42.0-52.0) L 06/14/17 06:00 MCV 91.1 fl (80.0-105.0) D 06/14/17 06:00 MCH 29.4 pg (25.0-35.0) 06/14/17 06:00 MCHC 32.3 g/dl (31.0-37.0) 06/14/17 06:00 RDW 14.1 % (11.5-14.5) 06/14/17 06:00 Plt Count 160 10^3/uL (120.0-450.0) 06/14/17 06:00 MPV 11.3 fl (7.0-11.0) H 06/14/17 06:00 Gran % 67.3 % (50.0-68.0) 06/14/17 06:00 Lymph % (Auto) 22.7 % (22.0-35.0) 06/14/17 06:00 [place] % (Auto) 8.6 % (1.0-6.0) H 06/14/17 06:00 Eos % (Auto) 1.3 % (1.5-5.0) L 06/14/17 06:00 Baso % (Auto) 0.1 % (0.0-3.0) 06/14/17 06:00 Gran # 4.70 (1.4-6.5) 06/14/17 06:00 Lymph # (Auto) 1.6 (1.2-3.4) 06/14/17 06:00 [place] # (Auto) 0.6 (0.1-0.6) 06/14/17 06:00 Eos # (Auto) 0.1 (0.0-0.7) 06/14/17 06:00 Baso # (Auto) 0.01 K/mm3 (0.0-2.0) 06/14/17 06:00 PT 13.8 SECONDS (9.4-12.5) H 06/11/17 19:50 INR 1.21 (0.93-1.08) H 06/11/17 19:50 APTT 29.0 Seconds (25.1-36.5) 06/11/17 19:50 Sodium 135 mmol/L (132-148) 06/14/17 06:00 Potassium 4.5 mmol/L (3.6-5.0) 06/14/17 06:00 Chloride 92 mmol/L (98-107) L 06/14/17 06:00 Carbon Dioxide 25 mmol/L (21-33) 06/14/17 06:00 Anion Gap 22 (10-20) H 06/14/17 06:00 BUN 61 mg/dL (7-21) H 06/14/17 06:00 Creatinine 8.9 mg/dl (0.8-1.5) H* D 06/14/17 06:00 Est GFR ( Amer) 8 06/14/17 06:00 Est GFR (Non-Af Amer) 6 06/14/17 06:00 POC Glucose (mg/dL) 179 mg/dL (65-110) H 06/14/17 11:46 Random Glucose 134 mg/dL (70-110) H 06/14/17 06:00 Hemoglobin A1c 8.3 % (4.2-6.5) H 06/12/17 07:30 Calcium 9.4 mg/dL (8.4-10.5) 06/14/17 06:00 Phosphorus 7.7 mg/dL (2.5-4.5) H 06/14/17 06:00 Magnesium 2.2 mg/dL (1.7-2.2) 06/14/17 06:00 Total Bilirubin 0.8 mg/dL (0.2-1.3) 06/14/17 06:00 AST 62 U/L (17-59) H D 06/14/17 06:00 ALT 61 U/L (7-56) H 06/14/17 06:00 Alkaline Phosphatase 51 U/L (38-126) 06/14/17 06:00 Lactate Dehydrogenase 710 U/L (333-699) H 06/12/17 07:30 Total Creatine Kinase 272 U/L (35-230) H 06/12/17 07:30 CK-MB (CK-2) 4.4 ng/mL (0.0-3.6) H 06/12/17 07:30 CK-MB (CK-2) % 1.3 % (2.5-3.0) L 06/11/17 07:30 Troponin I 0.51 ng/mL H* D 06/13/17 12:50 NT-Pro-B Natriuret Pep 92542 pg/mL (0-450) H 06/11/17 07:30 Total Protein 8.1 g/dL (5.8-8.3) 06/14/17 06:00 Albumin 3.8 g/dL (3.0-4.8) 06/14/17 06:00 Globulin 4.2 gm/dL 06/14/17 06:00 Albumin/Globulin Ratio 0.9 (1.1-1.8) L 06/14/17 06:00 Triglycerides 176 mg/dL (35-160) H 06/12/17 07:30 Cholesterol 86 mg/dL (130-200) L 06/12/17 07:30 LDL Cholesterol Direct < 30 mg/dL (0-129) 06/12/17 07:30 HDL Cholesterol 25 mg/dL (29-60) L 06/12/17 07:30 TSH 3rd Generation 2.04 mIU/mL (0.46-4.68) 06/12/17 07:30 - Hospital Course Hospital Course: pt is seen and examined at bed side , agreed all above , chart . meds and labs noted , dc home . will f/u as out pt
--- NOTE | 2017-06-14 15:41 | PN ---
DATE: 06/14/2017 REASON FOR CONSULTATION AND FOLLOWUP: Acute , unstable angina, status post PTCA of LAD with drug-eluting stent. SUBJECTIVE: The patient denies any chest pain, shortness of breath, or any palpitations. PHYSICAL EXAMINATION: OBJECTIVE: Not in apparent distress. VITAL SIGNS: Temperature afebrile, heart rate 55, blood pressure 106/49. HEENT: PERRLA. Extraocular muscles intact. NECK: Supple. No carotid bruit or thyromegaly. CHEST: Clear to auscultation. HEART: S1 and S2 regular. ABDOMEN: Soft. EXTREMITIES: Clubbing and cyanosis negative. LABORATORY DATA: Blood workup as follows: WBC 7, hemoglobin , hematocrit 29.7, platelet count of 160. Chemistry shows sodium 135, potassium 4.5, chloride 92, carbon dioxide 25, anion gap of 22, BUN 61, creatinine 8.9. EKG, sinus bradycardia, left axis deviation, no acute ST-T changes noted. IMPRESSION: Acute , unstable angina, diabetes, hypertension, hyperlipidemia, history of previous stent, admitted with chest pain, bradycardia, rapid response, moved to Intensive Care Unit, positive troponin, status post catheterization and 2 stents done. Postoperative course remains uneventful. Currently, the patient is seen in dialysis, having dialysis, denies any chest pain. The patient had echocardiography done post percutaneous coronary intervention that showed ejection fraction of 55%, mild valvular aortic stenosis, moderate tricuspid regurgitation, right ventricular systolic pressure 89 consistent with severe pulmonary hypertension, mild mitral regurgitation. During catheterization, sleep pattern consistent with sleep apnea; Pulmonary consult was obtained. RECOMMENDATIONS: Continue aspirin. Continue Plavix. Continue dialysis. Continue atorvastatin. The patient is stable from cardiology point of view, to be discharged when stable from medical point of view. Thank you, Dr. Kessler, for providing us the opportunity in taking care of the patient, Jason Berger. Jarred Erickson MD
--- NOTE | 2017-06-15 08:30 | PN ---
DATE: 06/14/2017 SUBJECTIVE: The patient is seen sitting in bed. He is awake. He is alert. He is comfortable. Reports feeling much better. Currently, he has no chest pain, no shortness of breath. PHYSICAL EXAMINATION: GENERAL: A middle-aged male, sitting in bed. VITAL SIGNS: Blood pressure 162/54 ,heart rate 62, respiratory rate 18, temperature . HEENT: Normocephalic, atraumatic. Conjunctivae are pink. . NECK: Supple, no JVD. LUNGS: Bilateral equal air entry, bilateral equal expansion. No rales. CARDIAC: S1 and S2. Regular rate and rhythm. No murmur, no rub. ABDOMEN: Soft, nondistended, nontender, bowel sounds present. EXTREMITIES: No lower extremity edema. INTAKE AND OUTPUT: Input is not charted. Output 2800 on dialysis. CURRENT MEDICATIONS: List reviewed. LABORATORY DATA: WBC 7, hemoglobin , hematocrit 29.7, platelets 160. Sodium 135, potassium 4.5, chloride 92, CO2 of 25, BUN 61, creatinine 8.9, glucose 134, calcium 9.4, phosphorus 7.7 and magnesium 2.2. AST 62, ALT 61. ASSESSMENT: 1. Acute coronary syndrome, status post cardiac arrest , with cardiac catheterization, percutaneous transluminal angioplasty and stent to the left anterior descending. 2. Non-insulin dependant diabetes mellitus. 3. End-stage renal disease. 4. Anemia of chronic kidney disease. 5. Hypertension. PLAN: 1. Stable dialysis today. 2. CAD stable, status post stents to LAD. 3. No objection to discharge. Eva Malcolm MD
== END 2017-06-14 14:25 | disposition home or self-care (01) | DRG 246 ==
LOC: ED 07:10 → ERH 09:27 → 2RNO 11:12 → CCU 19:28 → 3RSO 06-13 16:22
PROVIDERS: ADMIT Internal Medicine; ATTEND Internal Medicine
PROC: 5A1D70Z Performance of Urinary Filtration, Intermittent, Less than 6 Hours Per Day (ICD-10-PCS; 2017-06-11)
PROC: 027035Z Dilation of Coronary Artery, One Artery with Two Drug-eluting Intraluminal Devices, Percutaneous Approach (ICD-10-PCS; principal; 2017-06-12)
PROC: 4A023N7 Measurement of Cardiac Sampling and Pressure, Left Heart, Percutaneous Approach (ICD-10-PCS; 2017-06-12)
PROC: B211YZZ Fluoroscopy of Multiple Coronary Arteries using Other Contrast (ICD-10-PCS; 2017-06-12)
PROC: B215YZZ Fluoroscopy of Left Heart using Other Contrast (ICD-10-PCS; 2017-06-12)
PROC: 4A033BC Measurement of Arterial Pressure, Coronary, Percutaneous Approach (ICD-10-PCS; 2017-06-12)
PROC: 5A1D70Z Performance of Urinary Filtration, Intermittent, Less than 6 Hours Per Day (ICD-10-PCS; 2017-06-12)
PROC: 5A1D70Z Performance of Urinary Filtration, Intermittent, Less than 6 Hours Per Day (ICD-10-PCS; 2017-06-14)
DX: I21.4 Non-ST elevation (NSTEMI) myocardial infarction (principal); N18.6 End stage renal disease; N25.81 Secondary hyperparathyroidism of renal origin; I13.2 Hypertensive heart and chronic kidney disease with heart failure and with stage 5 chronic kidney disease, or end stage renal disease; I27.20 Pulmonary hypertension, unspecified; E11.22 Type 2 diabetes mellitus with diabetic chronic kidney disease; E11.21 Type 2 diabetes mellitus with diabetic nephropathy; E11.319 Type 2 diabetes mellitus with unspecified diabetic retinopathy without macular edema; E11.40 Type 2 diabetes mellitus with diabetic neuropathy, unspecified; Z99.2 Dependence on renal dialysis; J44.9 Chronic obstructive pulmonary disease, unspecified; E11.65 Type 2 diabetes mellitus with hyperglycemia; D63.1 Anemia in chronic kidney disease; I25.10 Atherosclerotic heart disease of native coronary artery without angina pectoris; I50.9 Heart failure, unspecified; E87.5 Hyperkalemia; E78.5 Hyperlipidemia, unspecified; G47.33 Obstructive sleep apnea (adult) (pediatric); E83.41 Hypermagnesemia; I08.3 Combined rheumatic disorders of mitral, aortic and tricuspid valves; E78.00 Pure hypercholesterolemia, unspecified; H54.8 Legal blindness, as defined in USA; I67.9 Cerebrovascular disease, unspecified; E66.9 Obesity, unspecified; Z68.32 Body mass index [BMI] 32.0-32.9, adult; Z91.19 Patient's noncompliance with other medical treatment and regimen; Z94.7 Corneal transplant status; Z86.73 Personal history of transient ischemic attack (TIA), and cerebral infarction without residual deficits; Z95.5 Presence of coronary angioplasty implant and graft

== ENCOUNTER 2017-06-16 01:10 | Inpatient (IN) | payer MEDICARE, OTHER ==
--- NOTE | 2017-06-16 01:39 | ED PDOC ---
Arrival/HPI - General Chief Complaint: Chest Pain Time Seen by Provider: 06/16/17 01:11 Historian: Patient - History of Present Illness Narrative History of Present Illness (Text): 06/16/17 01:35 A 52 year old male, whose past medical history includes ESRD (dialysis M, W, F, last session done 2 days ago, full treatment no complications), s/p pci, hypertension, diabetes, CAD, s/p cholecystectomy, left cornea transplant, cardiac stents and bronchial asthma, presents to the emergency department complaining of chest pain. The patient states that he was watching TV when he developed the chest pain. He notes that his symptoms feels similar to the pain he experienced 2 days ago for which he had 2 stents placed. He states that the pain is a pressure like sensation, non-radiating, and associated with shortness of breath and dizziness. As per EMS, 325mg of Aspirin was administered in route to the emergency department. The patient denies fevers, chills, headache, dyspnea on exertion, cough, abdominal pain, nausea, vomiting, diarrhea, back pain, neck pain, urinary/bowel changes, or any other complaint. PMD: Dr. Kessler School Psychology Specialist: Dr. Erickson Time/Duration: Other (This evening) Symptom Onset: Sudden Symptom Course: Unchanged Activities at Onset: Rest, Light Context: Home Past Medical History - Provider Review Nursing Documentation Reviewed: Yes - Past History Past History: No Previous - Infectious Disease Hx of Infectious Diseases: None - Tetanus Immunization Tetanus Immunization: Up to Date - Reproductive Currently Lactating: No - Cardiac Hx Cardiac Disorders: Yes Hx Congestive Heart Failure: Yes Hx Hypertension: Yes Other/Comment: 2 stents - Pulmonary Hx Chronic Obstructive Pulmonary Disease (COPD): Yes - Neurological Hx Transient Ischemic Attacks (TIA): Yes - HEENT Hx HEENT Disorder: Yes (BILATERAL EYE WITH BLURRY VISION) Hx Cataracts: Yes (HAD SX 05/29/12) Other/Comment: left eye cornea transplant,RENAL RETINOPATHY, glasses - Renal Date of Last Dialysis Treatment: 06/13/17 Other/Comment: m/w/f [facility] - Endocrine/Metabolic Hx Diabetes Mellitus Type 1: Yes - Hematological/Oncological Hx Anemia: Yes (With transfusions) - Integumentary Hx Dermatological Disorder: Yes (BILATERAL EDEMA TO UPPER AND LE,SKIN DRYNESS) - Musculoskeletal/Rheumatological Hx Gout: Yes Hx Unsteady Gait: Yes Other/Comment: Use of cane - Gastrointestinal Hx Gastrointestinal Disorders: (hx pancreatitis) Hx Gall Bladder Disease: Yes (CHOLECYSTECTOMY) Hx Gastroesophageal Reflux: Yes Hx Liver Failure: Yes (CKD) Hx Pancreatitis: Yes - Genitourinary/Gynecological Hx Genitourinary Disorders: Yes - Psychiatric Hx Psychophysiologic Disorder: No Hx Substance Use: No - Surgical History Hx Coronary Stent: Yes (x2 monday06/13/17) - Anesthesia Hx Anesthesia: Yes Hx Anesthesia Reactions: No Hx Malignant Hyperthermia: No - Suicidal Assessment Feels Threatened In Home Enviroment: No Family/Social History - Physician Review Nursing Documentation Reviewed: Yes Family/Social History: No Known Family HX Smoking Status: Never Smoked Hx Alcohol Use: No Hx Substance Use: No Hx Substance Use Treatment: No Allergies/Home Meds Allergies/Adverse Reactions: Allergies insulin aspart [From Novolog] Allergy (Intermediate, Verified 06/16/17 01:31) ITCHING ANY INSULIN THAT STARTS WITH NOV- moxifloxacin Allergy (Intermediate, Verified 06/16/17 01:31) ITCHING Penicillins Allergy (Intermediate, Verified 06/16/17 01:31) ITCHING Home Medications: Home Meds Medication Instructions Recorded Confirmed Calcium Phosphate 2 cap PO TID 06/14/17 06/16/17 Dexlansoprazole [Dexilant] 1 cap PO DAILY 06/14/17 06/16/17 Diclofenac Sodium [Voltaren] 1 appl TOP DAILY 06/14/17 06/14/17 Gabapentin [Neurontin] 300 mg PO TID 06/14/17 06/16/17 HumuLIN R 90 units SQ ACB 06/14/17 06/14/17 HumuLIN R 90 units SQ ACD 06/14/17 06/14/17 Humulin N 70 units SQ ACD 06/14/17 06/14/17 Humulin N 80 units SQ ACB 06/14/17 06/14/17 Lasix 40 mg PO BID 06/14/17 06/16/17 Lumigan 1 drop OU HS 06/14/17 06/14/17 Nateglinide [Starlix] 1 tab PO ACL 06/14/17 06/16/17 Salmeterol Xinafoate/Fluticaso 1 puff INH BID 06/14/17 06/14/17 [Advair Hfa 230-21] Toprol XL 50 mg PO DAILY 06/14/17 06/16/17 Zyrtec 10 mg PO HS 06/14/17 06/16/17 hydrALAZINE 20 mg PO BID 06/14/17 06/14/17 metroNIDAZOLE 0.75% 1 appl TOP DAILY 06/14/17 06/14/17 Ergocalciferol (Vitamin D2) 50,000 unit PO DAILY 06/16/17 06/16/17 [Vitamin D2] Fenofibrate [Triglide] 160 mg PO DAILY 06/16/17 06/16/17 Multivitamin with Iron 1 each PO DAILY 06/16/17 06/16/17 [Multivitamins with Iron] Nateglinide 2 tab PO ACD 06/16/17 06/16/17 [place]-3S/Dha/Epa/Fish Oil [Fish 2 cap PO BID 06/16/17 06/16/17 Oil [place]-3 Softgel] Pregabalin [Lyrica] 50 mg PO TID 06/16/17 06/16/17 Rosuvastatin Calcium [Crestor] 10 mg PO DAILY 06/16/17 06/16/17 Tamsulosin HCl [Flomax] 0.4 mg PO DAILY 06/16/17 06/16/17 Review of Systems - Physician Review All systems were reviewed & negative as marked: Yes - Review of Systems Gastrointestinal: absent: Abdominal Pain Neurological: absent: Headache Physical Exam - Physical Exam Narrative Physical Exam (Text): 06/16/17 01:39 Constitutional: No acute distress. Head: Normocephalic. Atraumatic. Eyes: PERRL. ENT: Moist mucous membranes. Neck: Supple. Cardiovascular: Bradycardic Chest: No tenderness. Respiratory: Clear to auscultation bilaterally. GI: Soft. Nontender. Nondistended. Back: No CVA tenderness. Musculoskeletal: No tenderness or swelling of extremities. Tremulous. Skin: No rash. Neurologic: Alert, no focal deficit. Vital Signs Reviewed: Yes Vital Signs Temp Pulse Resp BP Pulse Ox 06/16/17 02:00 50 L 12 108/37 L 99 06/16/17 01:27 97.3 F L 55 L 20 123/43 L 97 Temperature: Hypothermic Blood Pressure: Hypotensive Pulse: Bradycardic Respiratory Rate: Normal Appearance: Positive for: Well-Appearing, Non-Toxic, Comfortable Pain Distress: None Mental Status: Positive for: Alert and Oriented X 3 Finger Stick Blood Glucose: 263 Medical Decision Making ED Course and Treatment: 06/16/17 01:40 Impression: A 52 year old male presents to the emergency department complaining of sudden onset chest pain while watching TV this evening with associated shortness of breath and dizziness. Plan: -- Chest X-ray -- Labs -- Reassess and disposition Prior Visits: Notes and results from previous visits were reviewed. Patient was last seen in the emergency department on 06/11/2017. The patient was seen in the emergency department for a complaint of dizziness. The patient was hospitalized. Progress Notes: EKG: Ordered, reviewed, and independently interpreted the EKG. Rate : 43 BPM Rhythm : Sinus Bradycardia Interpretation : No ST elevations. T wave inversions laterally. 06/16/17 03:03: Case discussed with Dr. Kessler. - Lab Interpretations Lab Results: 06/16/17 01:21 06/16/17 01:21 Lab Results 06/16/17 01:21: Sodium 136, Potassium 3.7, Chloride 93 L, Carbon Dioxide 24, Anion Gap 22 H, BUN 62 H, Creatinine 9.2 H*, Est GFR ( Amer) 7, Est GFR ( Non-Af Amer) 6, Random Glucose 214 H, Calcium 9.3, Total Bilirubin 0.6, AST 55, ALT 46, Alkaline Phosphatase 60, Total Creatine Kinase 268 H, CK-MB (CK-2) Pending, CK-MB (CK-2) % Pending, Troponin I 0.21 H* D, NT-Pro-B Natriuret Pep 00965 H, Total Protein 8.1, Albumin 3.9, Globulin 4.1, Albumin/Globulin Ratio 1.0 L 06/16/17 01:21: PT 13.4 H, INR 1.17 H, APTT 28.7 06/16/17 01:21: WBC 5.8, RBC 3.12 L, Hgb 9.4 L, Hct 28.8 L, MCV 92.3, MCH 30.1, MCHC 32.6, RDW 14.3, Plt Count 150, MPV 12.0 H, Gran % 66.4, Lymph % (Auto) 24.7 , [place] % (Auto) 7.0 H, Eos % (Auto) 1.4 L, Baso % (Auto) 0.5, Gran # 3.88, Lymph # (Auto) 1.4, [place] # (Auto) 0.4, Eos # (Auto) 0.1, Baso # (Auto) 0.03 I have reviewed the lab results: Yes - RAD Interpretation Radiology Orders: 06/16/17 01:34 CHEST PORTABLE [RAD] Stat - Medication Orders Current Medication Orders: Discontinued Medications Gabapentin (Neurontin) 100 mg PO STAT STA PRN Reason: Protocol Stop: 06/16/17 02:12 Last Admin: 06/16/17 02:21 Dose: 100 mg Gabapentin (Neurontin) 200 mg PO STAT STA PRN Reason: Protocol Stop: 06/16/17 02:58 Last Admin: 06/16/17 03:02 Dose: 200 mg - Scribe Statement The provider has reviewed the documentation as recorded by the Elizabethibclive Lomeli Provider Scribe Attestation: All medical record entries made by the Scribe were at my direction and personally dictated by me. I have reviewed the chart and agree that the record accurately reflects my personal performance of the history, physical exam, medical decision making, and the department course for this patient. I have also personally directed, reviewed, and agree with the discharge instructions and disposition. Disposition/Present on Arrival - Present on Arrival Any Indicators Present on Arrival: Yes History of DVT/PE: No History of Uncontrolled Diabetes: Yes Urinary Catheter: No History of Decub. Ulcer: No History Surgical Site Infection Following: None - Disposition Have Diagnosis and Disposition been Completed?: Yes Diagnosis: Chest pain Disposition: HOSPITALIZED Disposition Time: 02:59 Patient Plan: Telemetry Condition: GUARDED Discharge Instructions (ExitCare): Chest Pain (ED) Referrals: Diana Kessler MD [Primary Care Provider] - Follow up with primary Forms: [employer] (Montenegrin)
[2017-06-16 02:06] LABS: BASO # 0.03 K/mm3 (0.0-2.0); BASO % 0.5 % (0.0-3.0); EOS # 0.1 (0.0-0.7); EOS % 1.4 % (1.5-5.0); GRAN # 3.88 (1.4-6.5); GRAN % 66.4 % (50.0-68.0); HEMOGLOBIN 9.4 g/dL (14.0-18.0); LYMPH # 1.4 (1.2-3.4); LYMPH % 24.7 % (22.0-35.0); MEAN CELL VOLUME 92.3 fl (80.0-105.0); MEAN CORPUSCULAR HEMOGLOBIN 30.1 pg (25.0-35.0); MEAN CORPUSCULAR HGB CONC 32.6 g/dl (31.0-37.0); MONO # 0.4 (0.1-0.6); RBC 3.12 10^6/uL (3.5-6.1); RED CELL DISTRIBUTION WIDTH 14.3 % (11.5-14.5); WHITE BLOOD COUNT 5.8 10^3/ul (4.5-11.0)
[2017-06-16 02:11] LABS: INR 1.17 (0.93-1.08); PARTIAL THROMBOPLASTIN TIME 28.7 Seconds (25.1-36.5); PROTHROMBIN TIME 13.4 SECONDS (9.4-12.5)
[2017-06-16 02:57] LABS: ALBUMIN 3.9 g/dL (3.0-4.8); CALCIUM 9.3 mg/dL (8.4-10.5); TROPONIN I 0.21 ng/mL
[2017-06-16 03:55] LABS: CK MB% 2.6 % (2.5-3.0); CK-MB 6.9 ng/mL (0.0-3.6)
[2017-06-16 04:59] VITALS: BMI 24.2
[2017-06-16] MEDS ORDERED: Pantoprazole 40 mg EC Tab PO STA (06:52)
--- NOTE | 2017-06-16 06:52 | CP.PCM.PN ---
Subjective - Date & Time of Evaluation Date of Evaluation: 06/16/17 Time of Evaluation: 06:51 - Subjective Subjective: draft nausea 101/52 Objective - Vital Signs/Intake and Output Vital Signs (last 24 hours): Temp Pulse Resp BP Pulse Ox 98.1 F 51 L 19 101/52 L 97 06/16/17 06:00 06/16/17 06:00 06/16/17 06:00 06/16/17 06:00 06/16/17 06:00 - Labs Labs: PT 13.4 SECONDS (9.4-12.5) H 06/16/17 01:21 INR 1.17 (0.93-1.08) H 06/16/17 01:21 APTT 28.7 Seconds (25.1-36.5) 06/16/17 01:21
--- NOTE | 2017-06-16 08:37 | RAD ---
HISTORY: Chest pain. COMPARISON: 06/11/2017. FINDINGS: LUNGS: No active pulmonary disease. PLEURA: No significant pleural effusion identified, no pneumothorax apparent. CARDIOVASCULAR: Cardiomegaly. No evidence of acute, significant cardiovascular disease. OSSEOUS STRUCTURES: No significant abnormalities. VISUALIZED UPPER ABDOMEN: Normal. OTHER FINDINGS: None. IMPRESSION: No active disease. No significant interval change compared to the prior examination(s).
[2017-06-16] MEDS ORDERED: INSULIN NPH SQ SCH ×2 (08:45→16:30)
[2017-06-16] MEDS ORDERED: Multivitamin Therapeutic Tab PO ONE (09:30)
[2017-06-16] MEDS ORDERED: Insulin Human NPH 1 UNITS/0.01 ML SC ONE (09:30)
[2017-06-16] MEDS ORDERED: Non Formulary Medication (Fenofibrate [Triglide] 160 MG) PO SCH ×2 (10:00)
[2017-06-16] MEDS ORDERED: HYDRALAZINE PO SCH (10:00)
[2017-06-16] MEDS ORDERED: DHA PO SCH ×2 (10:00)
[2017-06-16] MEDS ORDERED: METRONIDAZOLE 0.75% TOP SCH (10:00)
[2017-06-16] MEDS ORDERED: OMEGA PO SCH ×2 (10:00)
[2017-06-16] MEDS ORDERED: Non Formulary Medication (Rosuvastatin Calcium [Crestor] 10 MG) PO SCH (10:00)
[2017-06-16] MEDS ORDERED: FISH OIL PO SCH ×2 (10:00)
[2017-06-16] MEDS ORDERED: TOPROL 50 MG PO SCH (10:00)
[2017-06-16] MEDS ORDERED: DEXLANSOPRAZOLE PO SCH (10:00)
[2017-06-16] MEDS ORDERED: Ergocalciferol 50,000 Intl Units Cap PO SCH ×2 (10:00)
[2017-06-16] MEDS ORDERED: APPL TOP SCH (10:00)
[2017-06-16] MEDS ORDERED: MULTIVITAMIN WITH IRON PO SCH (10:00)
[2017-06-16] MEDS ORDERED: SALMETEROL XINAFOATE INH SCH (10:00)
[2017-06-16] MEDS ORDERED: EPA PO SCH ×2 (10:00)
[2017-06-16] MEDS ORDERED: Omega-3-Acid Ethyl Esters 1 GM Cap PO SCH ×2 (10:00)
[2017-06-16] MEDS ORDERED: Metoprolol Succinate 50 mg XL Tab PO SCH (10:00)
[2017-06-16] MEDS ORDERED: CALCIUM PHOSPHATE PO SCH (10:00)
[2017-06-16] MEDS ORDERED: FLUTICASO INH SCH (10:00)
--- NOTE | 2017-06-16 10:15 | PCM.RRT ---
FINANCIAL COMPLIANCE EXAMINER Nurse Assessment - Situation Date: 06/16/17 FINANCIAL COMPLIANCE EXAMINER Location:: [facility]al Dialysis FINANCIAL COMPLIANCE EXAMINER Reason for Call: Chest Pain, Bradycardia FINANCIAL COMPLIANCE EXAMINER Called By: RN - IV IV Inserted during FINANCIAL COMPLIANCE EXAMINER?: No - Respiratory Oxygen Delivery Method: Nasal Cannula @L/min - Diagnostic Test Ordered EKG: Yes Chest X-Ray: No - Stat Labs Ordered FINANCIAL COMPLIANCE EXAMINER Stat Labs Ordered: CBC, BMP, TROPONIN - [place] Coma Scale Coma Scale Eye Opening: Spontaneous Coma Scale Motor: Obeys Commands Movement Coma Scale Verbal: Oriented - Recommendations 5) FINANCIAL COMPLIANCE EXAMINER Level of Care Recommendations: Remain in current setting Notifications: Attending Physician, Consultations - Head Head Exam: ATRAUMATIC, NORMAL INSPECTION, NORMOCEPHALIC - Eyes Eye Exam: Normal appearance, PERRL - Respiratory Exam Respiratory Exam: NORMAL BREATHING PATTERN. absent: Rales, Rhonchi, Wheezes - Cardiovascular Exam Cardiovascular Exam: Bradycardia, REGULAR RHYTHM, +S1, +S2. absent: Gallop, Rubs, Murmur - GI/Abdominal Exam GI & Abdominal Exam: Soft, Normal Bowel Sounds. absent: Tenderness, Rebound - Neurological Exam Neurological Exam: Alert, Awake, CN II-XII Intact, Oriented x3
[2017-06-16 10:49] LABS: HEMOGLOBIN 8.3 g/dL (14.0-18.0); MEAN CELL VOLUME 91.1 fl (80.0-105.0); MEAN CORPUSCULAR HEMOGLOBIN 29.5 pg (25.0-35.0); MEAN CORPUSCULAR HGB CONC 32.4 g/dl (31.0-37.0); MEAN PLATELET VOLUME 10.7 fl (7.0-11.0); RBC 2.81 10^6/uL (3.5-6.1); RED CELL DISTRIBUTION WIDTH 14.2 % (11.5-14.5); WHITE BLOOD COUNT 5.1 10^3/ul (4.5-11.0)
[2017-06-16 11:07] LABS: ALBUMIN 3.3 g/dL (3.0-4.8); CALCIUM 8.8 mg/dL (8.4-10.5)
--- NOTE | 2017-06-16 11:29 | PCM.RRT ---
<Lolis Rivas - Last Filed: 06/16/17 12:10> R[employer] AND SPORTS BOOK WRITER Nurse Assessment - Situation Date: 06/16/17 Time RACE AND SPORTS BOOK WRITER was called: 09:54 RACE AND SPORTS BOOK WRITER Responder Arrival Time: 09:54 RACE AND SPORTS BOOK WRITER Location:: Renal Dialysis RACE AND SPORTS BOOK WRITER Reason for Call: Chest Pain, Bradycardia RACE AND SPORTS BOOK WRITER Called By: RN - IV IV Inserted during RACE AND SPORTS BOOK WRITER?: No - Respiratory Oxygen Delivery Method: Nasal Cannula @L/min Oxygen Flow Rate: 3 - Medication Medications Administered During RACE AND SPORTS BOOK WRITER: 10:01 Atropine 0.5mg. 10:06 Atropine 0.5mg - Diagnostic Test Ordered EKG: Yes Chest X-Ray: No - Stat Labs Ordered R[employer] AND SPORTS BOOK WRITER Stat Labs Ordered: CBC, BMP, TROPONIN CPR started during RACE AND SPORTS BOOK WRITER?: No - Vital Signs Vital Sign: Rapid Response Vital Sign Blood Pressure 100/41 Pulse Rate 37 Temperature 97.5 F Oxygen Saturation 100 - Finger Stick Blood Glucose Finger Stick Blood Glucose: 101 - [place] Coma Scale Coma Scale Eye Opening: Spontaneous Coma Scale Motor: Obeys Commands Movement Coma Scale Verbal: Oriented - Time R[employer] AND SPOR[employer] BOOK WRITER Ended Time RACE AND SPORTS BOOK WRITER Ended: 10:17 - Vital Signs at end of R[employer] AND SPORTS BOOK WRITER Vital Signs at end of R[employer] AND SPORTS BOOK WRITER: Rapid Response End Vital Sign Blood Pressure 127/50 Pulse Rate 52 Respiratory Rate 16 Temperature 97.8 F - Recommendations 5) R[employer] AND SPOR[employer] BOOK WRITER Level of Care Recommendations: Remain in current setting Notifications: Attending Physician, Consultations I.Reason for RACE AND SPORTS BOOK WRITER - A) Acute Change in Patient: (Select all that apply): Acute change in heart rate less than 50 or greater than 120 Subjective: Patient was admitted to telemetry this morning. He was brought down to dialysis for his regularly scheduled HD. Upon arrival, patient was found to have chest pain, dizziness and was found to be bradycardic at rate of 37. Rapid response was called and rapid response team responded immediately. The chest pain is on the L side and radiates to the R side of his chest. It hurts with palpation. It does not go down his arm or up to his neck. He denies nausea/vomiting/diarrhea, shortness of breath, fever/chills, or vision changes. - Neurological Status (Select all that apply): Alert, Oriented, Verbal, Follows Commands - Respiratory Oxygen Delivery Method: Nasal Cannula @L/min Oxygen Flow Rate: 3 - Constitutional Appears: Chronically Ill - Head Head Exam: ATRAUMATIC, NORMAL INSPECTION, NORMOCEPHALIC - Eyes Eye Exam: Normal appearance, PERRL - Respiratory Exam Respiratory Exam: Clear to Ausculation Bilateral, NORMAL BREATHING PATTERN. absent: Rales, Rhonchi, Wheezes - Cardiovascular Exam Cardiovascular Exam: Bradycardia, REGULAR RHYTHM, +S1, +S2. absent: Gallop, Rubs, Murmur - GI/Abdominal Exam GI & Abdominal Exam: Soft, Normal Bowel Sounds. absent: Rigid, Tenderness, Mass , Rebound - Neurological Exam Neurological Exam: Alert, Awake, CN II-XII Intact, Oriented x3 Plan - Assessment of Findings&Treatment Plan This is a 52yo male with ESRD and recent PCI who had a rapid response called for bradycardia and dizziness. Patient was found to have a HR@37. EKG was done which showed junctional bradycardia. CBC, CMP, and troponin were ordered and reviewed. Troponin was 0.21 x 2. Atropine 0.5mg IVP was given x 2. Patient's heart rate improved to 52bpm. Dr. Goodwin was notified and said to maintain HR> 50. Metoprolol was held. Patient's symptoms improved. Dr. Malcolm was also notified and reports that it is ok to start HD today. Patient is awake and alert and will be placed back on telemetry after dialysis. Case seen, discussed and reviewed with attending. Simon Rivas PGY2 <Suzan Mcgregor - Last Filed: 06/17/17 18:02> R[employer] AND SPORTS BOOK WRITER Nurse Assessment - Vital Signs Vital Sign: Rapid Response Vital Sign Blood Pressure 100/41 Pulse Rate 37 Respiratory Rate 20 Temperature 97.5 F Oxygen Saturation 100 - Vital Signs at end of R[employer] AND SPORTS BOOK WRITER Vital Signs at end of R[employer] AND SPOR[employer] BOOK WRITER: Rapid Response End Vital Sign Blood Pressure 127/50 Pulse Rate 52 Respiratory Rate 16 Temperature 97.8 F Attending/Attestation - Attestation I have personally seen and examined this patient.: Yes I have fully participated in the care of the patient.: Yes I have reviewed all pertinent clinical information, including history, physical exam and plan: Yes Notes (Text): I have seen and examined patient in renal dialysis unit with the resident. Agree with the above note. Most likely bradycardia is due to effect of medication. Beta valerie is on hold now. Ativan 0.5 mg x2 was given with appropriate response. Recommend to check TSH. HR is >50. Discussed with Dr Goodwin. Patient's symptoms resolved including dizziness, headache and weakness. Patient denies any chest pain. Dr Suzan Mcgregor
[2017-06-16] MEDS ORDERED: Insulin Reg-LOW-Coverage SC SCH ×2 (11:30→16:56)
[2017-06-16] MEDS ORDERED: NATEGLINIDE PO SCH ×4 (11:30→16:30)
[2017-06-16 11:32] LABS: TROPONIN I 0.21 ng/mL
--- NOTE | 2017-06-16 13:13 | CP.PCM.PN ---
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 stents, TIA, & asthma. On 06/12, pt went for cardiac cath through R groin with new cardiac stent insertion. Pt admitted [place] [facility] with renal failure, dizziness ( secondary to hypotension), and chest pain. After becoming unresponsive, pt was found to have elevated serial tropins, NSTEMI and hypotension. Pt was transferred to ICU for elevated troponins and dopamine drip. He was discharge home on 06/14 and readmitted on 06/16 for bradycardia & chest pain (pressure like sensation, non-radiating, associated with SOB and dizziness). As per EMS, 325mg of Aspirin was administered in route to the emergency department. Today, pt is seen receiving Hemodialysis after having a PACKAGING INSPECTOR with 3L nasal cannula in place. Pt appears anxious and worried. Denies any headache, fever, chills, nausea, vomiting, diarrhea, constipation and urinary changes. Objective - Vital Signs/Intake and Output Vital Signs (last 24 hours): Temp Pulse Resp BP Pulse Ox 98.1 F 51 L 19 101/52 L 97 06/16/17 06:00 06/16/17 06:00 06/16/17 06:00 06/16/17 06:00 06/16/17 06:00 - Medications Medications: Current Medications Aspirin (Ecotrin) 81 mg PO DAILY [facility] Atorvastatin Calcium (Lipitor) 10 mg PO DIN [facility] Clopidogrel Bisulfate (Plavix) 75 mg PO DAILY [facility] Ergocalciferol (Drisdol 50,000 Intl Units Cap) 1 cap PO QWK [facility] Furosemide (Lasix) 40 mg PO BID [facility] Hydralazine HCl (Apresoline) 20 mg PO QID [facility] Insulin Human NPH (Humulin N) 70 units SC ACD [facility] Insulin Human NPH (Humulin N) 80 units SC ACB [facility] Insulin Human Regular (Humulin R Low) 0 units SC ACHS [facility] PRN Reason: Protocol Loratadine (Claritin) 10 mg PO HS [facility] Metoprolol Succinate (Toprol Xl) 50 mg PO DAILY [facility] Montelukast Sodium (Singulair) 10 mg PO HS [facility] Multivitamins (Thera Tab) 1 tab PO DAILY [facility] Non-Formulary Medication (Dexlansoprazole [Dexilant]) 1 cap PO DAILY [facility] Non-Formulary Medication (Diclofenac Sodium [Voltaren]) 1 appl TOP DAILY [facility] Non-Formulary Medication (Calcium Phosphate) 2 cap PO TID [facility] Non-Formulary Medication (Fenofibrate [Triglide]) 160 mg PO DAILY [facility] Non-Formulary Medication ([place]) 1 drop OU HS [facility] Non-Formulary Medication (Metronidazole 0.75%) 1 appl TOP DAILY [facility] Non-Formulary Medication (Nateglinide [Nateglinide]) 2 tab PO ACD [facility] Non-Formulary Medication (Nateglinide [Starlix]) 1 tab PO ACL [facility] Non-Formulary Medication ([place]-3s/Dha/Epa/Fish Oil [Fish Oil [place]-3 Softgel]) 2 cap PO BID [facility] Non-Formulary Medication (Salmeterol Xinafoate/Fluticaso [Advair Hfa 230-21]) 1 puff INH BID [facility] Pregabalin (Lyrica) 50 mg PO TID [facility] Tamsulosin HCl (Flomax) 0.4 mg PO DAILY [facility] Zolpidem Tartrate (Ambien) 5 mg PO HS PRN; Protocol PRN Reason: Insomnia - Labs Labs: 06/16/17 09:50 06/16/17 09:50 PT 13.4 SECONDS (9.4-12.5) H 06/16/17 01:21 INR 1.17 (0.93-1.08) H 06/16/17 01:21 APTT 28.7 Seconds (25.1-36.5) 06/16/17 01:21 - Constitutional Appears: In Acute Distress, Chronically Ill - Head Exam Head Exam: ATRAUMATIC, NORMAL INSPECTION, NORMOCEPHALIC - Eye Exam Eye Exam: EOMI, Normal appearance, PERRL Pupil Exam: NORMAL ACCOMODATION, PERRL - ENT Exam ENT Exam: Mucous Membranes Dry - Neck Exam Neck Exam: Full ROM, Normal Inspection. absent: Lymphadenopathy - Respiratory Exam Respiratory Exam: Decreased Breath Sounds - Cardiovascular Exam Cardiovascular Exam: REGULAR RHYTHM, +S1, +S2. absent: Murmur - GI/Abdominal Exam GI & Abdominal Exam: Soft, Normal Bowel Sounds. absent: Tenderness - Extremities Exam Extremities Exam: Full ROM, Normal Capillary Refill, Normal Inspection. absent : Joint Swelling, Pedal Edema Additional comments: L AV fistula - Back Exam Back Exam: NORMAL INSPECTION - Neurological Exam Neurological Exam: Alert, Awake, CN II-XII Intact, Normal Gait, Oriented x3 - Psychiatric Exam Psychiatric exam: Anxious, Depressed - Skin Skin Exam: Dry, Intact, Normal Color, Warm Assessment and Plan (1) Bradycardia Status: Acute (2) Chest pain Status: Acute (3) ACS (acute coronary syndrome) Status: Acute (4) Dehydration Status: Acute (5) ESRD (end stage renal disease) Status: Acute (6) Pulmonary hypertension, moderate to severe Status: Acute (7) Shortness of breath Status: Acute - Assessment and Plan (Free Text) Plan: Stablize patient. Remove excess fluid w. Hemodialysis. Consider Dry Sand Molder, recommendation: daily asa w. plavix x1yr, aggressive medical therapy, weight loss, consider sleep study. GI/VTE prophylaxis. Bipap at HS. Consults: Cardio - Nephro - Dr. Malcolm Pulmo - Dr. Escalera Reviewed: ECG = ? CXR = 06/16 WNL Cardiac Cath = stent RCA, EF 55%, mild & distal LAD 70% stenoses w. stent insertion ECHO = EF 55%, mild concentric LVH, severe pulmonary hypertension ECG = ABNORMAL, SR 1AVB, min voltage criteria for LVH, may be normal variant, nonspecific T wave abnormality, prolonged QT CXR = potential residual or recurrent pulmonary venous congestion, stable cardiomegaly
[2017-06-16] MEDS: Ergocalciferol 50,000 Intl Units Cap PO SCH ×2 (13:29→18:23)
[2017-06-16] MEDS: DICLOFENAC SODIUM APPL TOP SCH (13:29)
[2017-06-16] MEDS: CALCIUM PHOSPHATE PO SCH ×2 (13:29→15:02)
[2017-06-16] MEDS: Multivitamin Therapeutic Tab PO SCH (13:32)
[2017-06-16] MEDS: SALMETEROL XINAFOATE INH SCH ×2 (13:32→18:16)
[2017-06-16] MEDS: APPL TOP SCH (13:32)
[2017-06-16] MEDS: FLUTICASO INH SCH ×2 (13:32→18:16)
[2017-06-16] MEDS: METRONIDAZOLE 0.75% TOP SCH (13:32)
[2017-06-16 16:36] LABS: IRON 67 ug/dL (45-180)
[2017-06-16 16:45] LABS: % IRON SATURATION 24 % (20-55); TOTAL IRON BINDING CAPACITY 275 ug/dL (261-462)
[2017-06-16] MEDS: Insulin Human NPH 1 UNITS/0.01 ML SC SCH (17:13)
[2017-06-16] MEDS: Insulin Reg-LOW-Coverage SC SCH ×2 (17:50→22:00)
[2017-06-16] MEDS: Omega-3-Acid Ethyl Esters 1 GM Cap PO SCH (18:20)
--- NOTE | 2017-06-16 20:22 | CARD ---
APPROVED REPORT EKG Measurement Heart [id number] <Conclusion> Junctional bradycardia Left axis deviation Abnormal ECG
--- NOTE | 2017-06-16 20:26 | CARD ---
APPROVED REPORT EKG Measurement Heart [id number] <Conclusion> Junctional bradycardia Left axis deviation T wave abnormality, consider lateral ischemia Abnormal ECG
[2017-06-16] MEDS ORDERED: LUMIGAN OU SCH (22:00)
[2017-06-16] MEDS ORDERED: Insulin Human NPH 1 UNITS/0.01 ML SC SCH (22:00)
[2017-06-16] MEDS ORDERED: Insulin Regular 1 UNITS/0.01 ML ML SC SCH (22:00)
[2017-06-16] MEDS: Latanoprost 2.5 ml Opht Soln OU SCH (23:00)
[2017-06-17] MEDS: Albuterol-Ipratrop 3 mg / 0.5 (3 ml) UD IH SCH ×5 (00:09→23:00)
--- NOTE | 2017-06-17 02:19 | CON ---
DATE: 06/16/2017 REASON FOR CONSULTATION: Shortness of breath, chest pressure, bradycardia, need for dialysis. 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 Patient was recently discharged from the hospital when he had presented with similar complaints of chest pressure, shortness of breath, syncopal episode at home. He was found to have elevated troponins. He underwent cardiac catheterization. He received two stents to the LAD. Patient was discharged home. He returned early this morning with complaints of chest pressure, heaviness in the chest, dyspnea on exertion. Patient was given Plavix, sublingual nitrates. He was comfortable. Patient was sent for dialysis. Prior to starting dialysis, patient developed chest pain again, he was found to be bradycardic. He received some atropine. Subsequently, he received stable dialysis treatment. PAST MEDICAL AND SURGICAL HISTORY: NIDDM, hypertension, CAD, recent stents to the LAD, ESRD, anemia of chronic kidney disease, secondary hyperparathyroidism, left corneal transplant. FAMILY HISTORY: Hypertension and diabetes. SOCIAL HISTORY: No smoking, no alcohol use, no IV drug abuse. ALLERGIES: INSULIN, MOXIFLOXACIN, PENICILLIN. MEDICATIONS AT HOME: PhosLo, Dexilant, Voltaren, gabapentin, Lasix, Lumigan, Starlix, salmeterol, Toprol-XL 50, Zyrtec, hydralazine 20 b.i.d., fenofibrate, Lyrica, rosuvastatin, Flomax. REVIEW OF SYSTEMS: All systems are reviewed, pertinent positives as mentioned in the history of presenting illness, rest unremarkable. PHYSICAL EXAMINATION: GENERAL: Middle-aged male, seen sitting in chair in the dialysis unit. He is awake, he is alert, he is comfortable. VITAL SIGNS: Blood pressure 100/41, heart rate 50, respiratory rate 18, temperature 97.5. HEENT: Normocephalic, atraumatic, positive pallor. NECK: Supple, no JVD. LUNGS: Bilateral equal entry, bilateral equal expansion, no rales. CARDIAC: Regular rate and rhythm. No murmur, no rub. ABDOMEN: Obese, distended, soft, nontender, bowel sounds present. EXTREMITIES: Chronic stasis changes, hairless shiny skin. INTAKE AND OUTPUT: Not charted. LABORATORY DATA: WBC 5, hemoglobin 8.3, hematocrit 25.6, platelets 119. Sodium 135, potassium 4.2, chloride 94, CO2 25, BUN 65, creatinine 1.2, glucose 112, calcium 8.8, troponin 0.21, albumin 3.3. CURRENT MEDICATIONS: Drisdol, Ecotrin, fenofibrate, Flomax, insulin, Lasix 40 p.o. b.i.d.? Lipitor 10, pregabalin 50 t.i.d., nateglinide 2 tablets with meals, Plavix, Singulair, Toprol-XL. ASSESSMENT: 1. Acute coronary syndrome? Elevated troponin. 2. Coronary artery disease, recent percutaneous transluminal coronary angioplasty and stent to the left anterior descending. 3. Bradycardia 4. Non-insulin dependent diabetes mellitus. 5. Hypertension. 6. End-stage renal disease. 7. Severe anemia. PLAN: 1. Patient tolerated dialysis treatment after he was given atropine. 2. Hemoglobin is critically low, check iron stores. 3. Transfuse 1 unit of PRBC. 4. Monitor fingersticks. 5. Cardiology evaluation. 6. Close monitoring. Eva Malcolm MD
--- NOTE | 2017-06-17 03:33 | CON ---
DATE: 06/16/2017 LOCATION: The patient in room 269, bed 1. REASON FOR CONSULTATION: Chest pain. HISTORY OF PRESENT ILLNESS: A 52-year-old obese male with past medical history significant for hypertension, hyperlipidemia, diabetes mellitus with full-blown complication of diabetes mellitus including nephropathy, neuropathy; legally blind, walks with a cane; had angioplasty with drug-eluting stent of LAD on 06/12/2017. Now, he is admitted again with chest pain. He says chest pain is tightness, but he has also local tenderness. Patient denies any nausea, vomiting, hematemesis, melena. Patient this morning had an episode of bradycardia when he was dizzy and at that time atropine 1 mg IV was given and heart rate came up and since then, patient is totally pain free. Denies any shortness of breath or palpitation. PAST MEDICAL HISTORY: Patient's past medical history is significant for diabetes, hypertension, hyperlipidemia, diabetic nephropathy, diabetic retinopathy, diabetes. History of PTCA treated 4 years ago. History of PTCA of RCA in 10/2014. Patient had repeat cath on 12/15/2012, showed nonobstructive coronary artery disease. On 06/12/2017, patient had elevated troponin, so at that time, cardiac cath was done and patient had 70% of stenosis in the mid and distal LAD, so successful PTCA with drug eluting stent of distal and mid LAD was done. Patient also had echocardiogram on 06/12/2017, which showed normal size LV, mild concentric left ventricular hypertrophy, LV ejection fraction of 55%, moderate aortic regurgitation, mild valvular aortic stenosis, mild mitral regurgitation, moderate tricuspid regurgitation with RVSP 89 mmHg suggestive of severe pulmonary hypertension, mild pulmonic valvular regurgitation. Although, an echo showed mild aortic stenosis but when cath was done on 06/12/2017, no significant gradient was seen on cardiac catheterization, so there is no significant aortic stenosis. PAST SURGICAL HISTORY: Patient has history of renal failure and has AV fistula and AV shunt placement in the left arm, history of bilateral eye surgery with blurring of the vision, cataract surgery on 05/29/2012, left eye corneal transplant, retinopathy, history of cholecystectomy in the past, history of chronic kidney disease as mentioned, end-stage renal failure, on dialysis. On cardiac catheterization on 06/12/2017, LV ejection fraction was 55% and on 06/12 cardiac catheterization showed patent stent in RCA. EDP was 25 to 40, ejection fraction 55%. MEDICATIONS AT HOME: Patient has been taking Plavix, aspirin, Toprol-XL, and insulin along with other medications as per list. PERSONAL HISTORY: Denies smoking. Denies drinking. ALLERGIES: ALLERGIC TO PENICILLIN AND AVELOX. FAMILY HISTORY: Mother has had diabetes, hypertension, coronary artery disease. REVIEW OF SYSTEMS: All the systems are reviewed. Positive mentioned in the history, otherwise negative. PHYSICAL EXAMINATION: VITAL SIGNS: Blood pressure 125/70, respirations 18, patient is afebrile, pulse 56. HEENT: Head: Normocephalic. Eyes: Pupils normal. Conjunctivae slightly pale. NECK: JVP low. Carotids are equal. Thorax: AP diameter normal. CHEST: Patient had tenderness to the area of the chest pain. LUNGS: Clear. CARDIOVASCULAR: S1 and S2. Ejection systolic murmur, grade 3/6. No rub. ABDOMEN: Protuberant. No organomegaly. EXTREMITIES: No clubbing, no cyanosis. LABORATORY DATA: WBC 5.1, hemoglobin 8.3, hematocrit 25.6, platelet is 119. Sodium 135, potassium 4.2, BUN 65, creatinine 9.2, random glucose 265, another random glucose 112. Troponin 0.21. Troponin on 06/13 when the patient was discharged after angioplasty on 06/12 was 0.51 and troponin on 06/11 was 0.22 and other troponin on 06/12 was 0.25, and now two troponins are 0.21 and 0.21. NT-proB natriuretic peptide 19,500. EKG showed junctional rhythm around 43 per minute, Q in lead III and Q in aVF suggestive of old inferior wall AR, ST-T changes. Other EKG showed sinus bradycardia, R in III, aVF; ST-T changes. Patient's chest x-ray, lungs, no active pulmonary disease,cardiomegaly. DIAGNOSES: Chest pain, probably musculoskeletal with local tenderness; troponin elevation, probably remnant of previous angioplasty, on the day of discharge on 06/13/2017 was 0.51 and patient had renal failure, so there is element of false elevation of troponin. Patient had episode of bradycardia this morning, so his Lopressor had been stopped. Patient was given atropine, since then he is pain free and feels much better. Coronary artery disease status post stent insertion in the LAD on 06/12/2017, history of multiple angioplasties and stent insertion in the past; renal failure, on dialysis; diabetic nephropathy; diabetic neuropathy; hypertension; diabetes mellitus; hyperlipidemia; obesity; severe pulmonary hypertension, right ventricular systolic pressure 89 mmHg, moderate aortic regurgitation, mild mitral regurgitation, moderate tricuspid regurgitation, ejection fraction of left ventricle 55% normal. PLAN: Patient on hydralazine 20 mg p.o. q.i.d., aspirin 81 daily, Flomax 0.4 daily, insulin as ordered, furosemide 40 b.i.d., Lipitor 10 daily, Lyrica 50 mg t.i.d., Plavix 75 mg p.o. daily, Protonix 40 daily, salmeterol one puff INH b.i.d., Singulair 10 mg daily, Starlix 60 mg p.o a.c.l., Starlix 120 p.o. a.c.d. As mentioned before metoprolol succinate is on hold. We will monitor the patient and we will follow with you. Jarred Goodwin MD
--- NOTE | 2017-06-17 05:58 | CON ---
DATE: PULMONARY CONSULTATION REFERRING PHYSICIAN: Diana Kessler MD REASON FOR CONSULTATION: Chronic obstructive lung disease, obstructive sleep apnea syndrome, status post MN. 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 He was recently discharged from the hospital after coronary stent placement. Cardiac enzyme was positive. Cardiology consult has been called, seen by Dr. Goodwin. He is sitting on the side of the bed. He also has sleep apnea syndrome, was noncompliant for 4-hour use at night, so CPAP was taken away by the vendors. Presently, there is not much shortness of breath or wheezing. No nausea. No vomiting. No diarrhea. No leg pain or leg swelling. PAST MEDICAL HISTORY: Coronary artery disease, status post coronary artery stent, heart failure, hypertension, chronic obstructive lung disease, obstructive sleep apnea syndrome, history of TIA, diabetes, anemia. He is legally blind. ALLERGIES: TO INSULIN ASPART. ALSO ALLERGY TO MOXIFLOXACIN, AND ALLERGY TO PENICILLIN. SOCIAL HISTORY: No history of smoking or alcohol use. FAMILY HISTORY: No significant cardiopulmonary disease reported. MEDICATIONS: He is on Ambien 5 mg at bedtime p.r.n., hydralazine 20 mg four times a day, Claritin 10 mg daily, Voltaren on affected area, vitamin D 50,000 unit weekly, aspirin 81 mg daily, Flomax 0.4 mg daily, insulin coverage, Lasix 40 mg twice a day, Lipitor 10 mg daily, omega-3 at 2 g twice a day, Lyrica 50 mg 3 times a day, metronidazole topically to affected area, PhosLo with meals, Plavix 75 mg daily, Protonix 40 mg daily, Advair 1 puff twice a day, Singulair 10 mg daily, Starlix 60 mg daily, multivitamins daily, Toprol-XL 50 mg which is on hold, TriCor 145 mg daily, Xalatan ophthalmic solution. REVIEW OF SYSTEMS: No headache, no rhinitis, not much cough, no sputum production. Has some chest discomfort in the morning. No nausea, no vomiting, no diarrhea. Does have leg swelling. PHYSICAL EXAMINATION: GENERAL: Sitting up, in no acute distress. VITAL SIGNS: Temperature 98, heart rate 56, respiratory rate 16, blood pressure 129/62, pulse ox 97% on 3 L nasal cannula. HEENT: Moist mucous membrane. Crowded airway. Mallampati score is 4. NECK: Supple. No JVD. LUNGS: Few rhonchi. Prolonged expiratory phase. HEART: S1 and S2. ABDOMEN: Soft and nontender. No organomegaly EXTREMITIES: Trace edema. NEUROLOGICALLY: Awake, alert, follows simple commands. LABORATORY DATA: Hemoglobin 8.3, hematocrit 25.6, WBC 5.1, platelets 119. INR 1.17, PTT 29. Sodium 135, potassium 4.2, chloride 95, bicarbonate 25, BUN 65, creatinine 9.2, glucose 112, calcium 8.8, iron 67. AST 41, ALT 41, alkaline phosphatase 47. Troponin is 0.21. Albumin is 3.3. Chest x-ray done in the ER shows no active disease compared to previous x-rays. IMPRESSION AND PLAN: Chronic obstructive lung disease, obstructive sleep apnea syndrome, coronary artery disease, status post coronary stent, still has cardiac enzyme positive, hypertension, diabetes, renal failure, dialysis dependant. Patient was seen by Dr. Goodwin from Cardiology. Pulmonary point of view, we will add inhaled bronchodilator, keep head at [address] him on CPAP 7 cm with 30% oxygen while sleeping. After my examination, while patient was on dialysis, rapid response was called. Patient was bradycardic. and metoprolol was placed on hold. Thank you and we will follow with you. Jarred Escalera MD
[2017-06-17] MEDS: Insulin Reg-LOW-Coverage SC SCH ×4 (07:56→22:45)
[2017-06-17] MEDS: Omega-3-Acid Ethyl Esters 1 GM Cap PO SCH ×2 (09:16→17:16)
[2017-06-17] MEDS: Multivitamin Therapeutic Tab PO SCH (09:16)
[2017-06-17] MEDS: Pantoprazole 40 mg EC Tab PO SCH (09:17)
[2017-06-17] MEDS: Insulin Human NPH 1 UNITS/0.01 ML SC SCH ×2 (09:17→17:14)
[2017-06-17] MEDS: DICLOFENAC SODIUM APPL TOP SCH (09:18)
[2017-06-17] MEDS: SALMETEROL XINAFOATE INH SCH ×2 (09:19→18:02)
[2017-06-17] MEDS: APPL TOP SCH (09:19)
[2017-06-17] MEDS: FLUTICASO INH SCH ×2 (09:19→18:02)
[2017-06-17] MEDS: METRONIDAZOLE 0.75% TOP SCH (09:19)
[2017-06-17 12:41] LABS: BASO # 0.01 K/mm3 (0.0-2.0); BASO % 0.2 % (0.0-3.0); EOS # 0.1 (0.0-0.7); EOS % 1.6 % (1.5-5.0); GRAN # 4.1 (1.4-6.5); GRAN % 71.3 % (50.0-68.0); HEMOGLOBIN 10.1 g/dL (14.0-18.0); LYMPH # 1.1 (1.2-3.4); LYMPH % 19.1 % (22.0-35.0); MEAN CELL VOLUME 92.1 fl (80.0-105.0); MEAN CORPUSCULAR HEMOGLOBIN 29.6 pg (25.0-35.0); MEAN CORPUSCULAR HGB CONC 32.2 g/dl (31.0-37.0); MEAN PLATELET VOLUME 10.6 fl (7.0-11.0); MONO # 0.5 (0.1-0.6); MONO % 7.8 % (1.0-6.0); RBC 3.41 10^6/uL (3.5-6.1); RED CELL DISTRIBUTION WIDTH 15.6 % (11.5-14.5); WHITE BLOOD COUNT 5.8 10^3/ul (4.5-11.0)
--- NOTE | 2017-06-17 13:49 | PN ---
DATE: 06/17/2017 PULMONARY PROGRESS NOTE REFERRING PHYSICIAN: Diana Kessler MD SUBJECTIVE: Sitting at the side of the bed. Night was unremarkable. Tolerated CPAP well, complaining high pressure. No nausea. No vomiting. No diarrhea. No leg pain or leg swelling. OBJECTIVE GENERAL: In no acute distress. VITAL SIGNS: Temperature 99, heart rate 57, respiratory rate is 20, blood pressure 112/73, pulse ox 96% on room air. HEENT: Moist mucous membrane. Crowded airway. NECK: Supple. No JVD. LUNGS: Has a few scattered rhonchi. HEART: S1 and S2. ABDOMEN: Soft, nontender. No organomegaly. EXTREMITIES: Trace edema. NEUROLOGIC: Awake, alert. Follows simple commands. MEDICATIONS: He is on Ambien 5 mg at bedtime p.r.n.; hydralazine 20 mg four times a day; Claritin 10 mg daily; vitamin D 50,000 unit weekly, DuoNeb every 6 hours; Ecotrin 81 mg daily; Flomax 0.4 mg daily; insulin coverage; Lasix 40 mg twice a day; Lipitor 10 mg daily; Lovaza 2 g twice a day; Lyrica 50 mg 3 times a day. PhosLo with meals, Plavix 75 mg daily, Protonix 40 mg , also getting Singulair 10 mg at bedtime, Starlix 120 mg , multivitamins daily,Toprol-XL 50 mg daily, TriCor 145 mg daily. LABORATORY DATA: Reviewed and shows no new lab is available since yesterday. IMPRESSION AND PLAN: Chronic obstructive lung disease; obstructive sleep apnea syndrome; coronary artery disease, status post coronary stent; hypertension; diabetes; renal failure, dialysis dependent. Pulmonary point of view, he is doing well. Continue to encourage CPAP use. Keep head at 45 degree. We will decrease CPAP to 5 cm. Inhale bronchodilator. Cardiology followup. Renal followup. Fall precaution. Thank you and we will follow with you. Jarred Escalera MD
--- NOTE | 2017-06-17 15:05 | PN ---
DATE: 06/17/2017 REASON FOR CONSULTATION: Chest pain, coronary artery disease, recent stent insertion in LAD on 06/12/2017, episode of bradycardia while patient was on metoprolol. SUBJECTIVE: Patient is lying flat in bed without any chest pain, shortness of breath, or palpitations. Patient initially when he had chest pain, he had also local tenderness. Now, both local tenderness and chest pain have resolved. Patient yesterday has one episode of bradycardia and felt dizzy, atropine was given, and Lopressor was on hold. Since then, patient's heart rate has been stable and patient is asymptomatic. Patient's detailed cardiac history is mentioned in our consult dated 06/16/2017, please refer to that. PHYSICAL EXAMINATION: VITAL SIGNS: Blood pressure 100/53, respirations 20, pulse 52, temperature 99. HEENT: Head is normocephalic. Eyes: Pupils normal. Conjunctivae slightly pale. NECK: JVP low. Carotids are equal. Thorax: AP diameter normal. LUNGS: Clear. CARDIOVASCULAR: S1 and S2. Ejection systolic murmur. No rub. ABDOMEN: Soft, nontender. No organomegaly. EXTREMITIES: No clubbing, no cyanosis. LABORATORY DATA: WBC 5.1, hemoglobin 8.3, hematocrit 25.6, and platelets 119. Sodium 135, potassium 4.2. BUN 65, creatinine 9.2. Random sugar 265. Troponin 0.21. AST and ALT are normal. DIAGNOSES: Chest pain, probably musculoskeletal with local tenderness; troponin elevation probably remnant of previous angioplasty on 06/12/2017, of left anterior descending and on 06/13/2017, troponin was 0.51; patient has renal failure, on dialysis, so this is persistence of the troponin from the previous procedure and due to renal failure; patient had episode of bradycardia, responded to atropine, it was related to Lopressor, since then Lopressor has been on hold and patient's heart rate has been staying above 50; coronary artery disease, status post stent insertion in the left anterior descending on 06/12/2017; history of multiple angioplasties and stent insertion in the past; diabetic nephropathy; diabetic neuropathy; hypertension; hyperlipidemia; diabetes mellitus; obesity; severe pulmonary hypertension; right ventricular systolic pressure 89 mmHg; moderate aortic regurgitation; mild mitral regurgitation; moderate tricuspid regurgitation; left ventricle ejection fraction 55%; renal failure, on dialysis. PLAN: The patient is on hydralazine 20 four times daily, aspirin 81 mg daily, Plavix 75 mg daily, Flomax 0.4 daily, insulin as ordered, furosemide 40 b.i.d., atorvastatin 10 daily, Lyrica 50 t.i.d., Protonix 40 daily, Singulair 10 mg at bedtime, metoprolol 50 daily, Tricor 145 daily. We will follow. Jarred Goodwin MD
--- NOTE | 2017-06-17 15:47 | PN ---
DATE: 06/17/2017 SUBJECTIVE: The patient is seen sitting in chair. He is awake, he is alert, he is comfortable. He denies any chest pain today. He denies any shortness of breath. PHYSICAL EXAMINATION: GENERAL: Middle-aged male sitting in chair. VITAL SIGNS: Blood pressure 139/59, heart rate 63, respiratory rate 18, temperature 97.9. HEENT: Normocephalic, atraumatic, positive pallor. NECK: Supple, no JVD. LUNGS: Bilateral equal air entry, bilateral equal expansion, no rales. CARDIAC: S1 and S2. Regular rate and rhythm. No murmur, no rub. ABDOMEN: Obese, soft, nontender, bowel sounds present. EXTREMITIES: No lower extremity edema. INTAKE AND OUTPUT: Not charted. LABORATORY DATA: WBC 5.8, hemoglobin 10, hematocrit 31, platelets 110. Sodium 135, potassium 4.2, chloride 94, CO2 of 25, BUN 65, creatinine 9.2, glucose 112. CURRENT MEDICATIONS: Ambien, Apresoline 20 four times a day, Claritin, Voltaren, Drisdol, DuoNeb, Ecotrin, Flomax, insulin, Lasix 40 b.i.d., Lipitor, Lovaza, Lyrica, PhosLo, Plavix, Protonix, Singulair, nateglinide, Toprol-XL, TriCor. ASSESSMENT: 1. Acute coronary syndrome? Recent percutaneous transluminal coronary angioplasty and stent to the left anterior descending. 2. Anemia of chronic disease, status post 1 unit of blood transfusion yesterday. 3. End-stage renal disease. 4. Non-insulin dependent diabetes mellitus. 5. Hypertension. PLAN: 1. Continue aspirin, Plavix, beta-valerie, lipid-lowering agents. 2. Monitor fingersticks. 3. Follow up with Cardiology. Eva Malcolm MD
[2017-06-17] MEDS: Latanoprost 2.5 ml Opht Soln OU SCH (22:49)
[2017-06-18] MEDS: Albuterol-Ipratrop 3 mg / 0.5 (3 ml) UD IH SCH ×4 (02:30→20:40)
--- NOTE | 2017-06-18 04:18 | CP.PCM.PN ---
Subjective - Date & Time of Evaluation Date of Evaluation: 06/18/17 Time of Evaluation: 04:08 - Subjective Subjective: Patient was seen at bedside as he complained of numbness in right hand , forearm and arm. States that he did not get his neurontin which he is on at home. Has no other complaints now. Denies chest pain,nausea, sweating, palpitations. Medical record was reviewed. 52 year old male is admitted for chest pain. PMH HTN, CAD,CHF,angina,DM II, S/P PTCA,COPD,RENATA,obesity, anemia,bilateral eye surgery, left corneal transplant,pancreatitis, neuropathy,nephropathy, retinopathy, cholecystectom Objective - Vital Signs/Intake and Output Vital Signs (last 24 hours): Temp Pulse Resp BP Pulse Ox 98.3 F 58 L 20 122/63 100 06/18/17 00:01 06/18/17 02:00 06/18/17 00:01 06/18/17 00:01 06/18/17 00:01 - Medications Medications: Current Medications Albuterol/Ipratropium (Duoneb 3 Mg/0.5 Mg (3 Ml) Ud) 3 ml IH [id number] [facility] Last Admin: 06/17/17 23:00 Dose: 3 ml Aspirin (Ecotrin) 81 mg PO DAILY [facility] Last Admin: 06/17/17 09:17 Dose: 81 mg Atorvastatin Calcium (Lipitor) 10 mg PO DIN [facility] Last Admin: 06/17/17 17:15 Dose: 10 mg Calcium Acetate (Phoslo) 1,334 mg PO WM [facility] Last Admin: 06/17/17 17:15 Dose: 1,334 mg Clopidogrel Bisulfate (Plavix) 75 mg PO DAILY [facility] Last Admin: 06/17/17 09:16 Dose: 75 mg Ergocalciferol (Drisdol 50,000 Intl Units Cap) 1 cap PO QWK [facility] Last Admin: 06/16/17 18:23 Dose: 1 cap Fenofibrate (Tricor) 145 mg PO DAILY [facility] Last Admin: 06/17/17 09:16 Dose: 145 mg Furosemide (Lasix) 40 mg PO BID [facility] Last Admin: 06/17/17 17:15 Dose: 40 mg Hydralazine HCl (Apresoline) 20 mg PO QID [facility] Last Admin: 06/17/17 22:39 Dose: 20 mg Insulin Human NPH (Humulin N) 70 units SC ACD [facility] Last Admin: 06/17/17 17:14 Dose: 70 units Insulin Human NPH (Humulin N) 80 units SC ACB [facility] Last Admin: 06/17/17 09:17 Dose: 80 units Insulin Human Regular (Humulin R Low) 0 units SC ACHS [facility] Last Admin: 06/17/17 22:45 Dose: Not Given Latanoprost (Xalatan Opht) 0 ml OU HS [facility] Last Admin: 06/17/17 22:49 Dose: 2.5 ml Loratadine (Claritin) 10 mg PO HS [facility] Last Admin: 06/17/17 22:39 Dose: 10 mg Metoprolol Succinate (Toprol Xl) 50 mg PO DAILY [facility] Last Admin: 06/16/17 13:33 Dose: Not Given Montelukast Sodium (Singulair) 10 mg PO HS [facility] Last Admin: 06/17/17 22:39 Dose: 10 mg Multivitamins (Thera Tab) 1 tab PO DAILY [facility] Last Admin: 06/17/17 09:16 Dose: 1 tab Nateglinide (Starlix) 60 mg PO ACL [facility] Last Admin: 06/17/17 11:35 Dose: Not Given Nateglinide (Starlix) 120 mg PO ACD [facility] Last Admin: 06/17/17 16:13 Dose: Not Given Non-Formulary Medication (Diclofenac Sodium [Voltaren]) 1 appl TOP DAILY [facility] Last Admin: 06/17/17 09:18 Dose: Not Given Non-Formulary Medication (Metronidazole 0.75%) 1 appl TOP DAILY [facility] Last Admin: 06/17/17 09:19 Dose: Not Given Non-Formulary Medication (Salmeterol Xinafoate/Fluticaso [Advair Hfa 230-21]) 1 puff INH BID [facility] Last Admin: 06/17/17 18:02 Dose: Not Given [id number] Ethyl Esters (Lovaza) 2 gm PO BID [facility] Last Admin: 06/17/17 17:16 Dose: 2 gm Pantoprazole Sodium (Protonix Ec Tab) 40 mg PO ACB [facility] Last Admin: 06/17/17 09:17 Dose: 40 mg Pregabalin (Lyrica) 50 mg PO TID [facility] Last Admin: 06/17/17 17:15 Dose: 50 mg Tamsulosin HCl (Flomax) 0.4 mg PO DAILY [facility] Last Admin: 06/17/17 09:16 Dose: 0.4 mg Zolpidem Tartrate (Ambien) 5 mg PO HS PRN; Protocol PRN Reason: Insomnia Last Admin: 06/17/17 22:39 Dose: 5 mg - Labs Labs: 06/17/17 12:30 PT 13.4 SECONDS (9.4-12.5) H 06/16/17 01:21 INR 1.17 (0.93-1.08) H 06/16/17 01:21 APTT 28.7 Seconds (25.1-36.5) 06/16/17 01:21 Most Recent Lab Values WBC 5.8 10^3/ul (4.5-11.0) 06/17/17 12:30 RBC 3.41 10^6/uL (3.5-6.1) L 06/17/17 12:30 Hgb 10.1 g/dL (14.0-18.0) L 06/17/17 12:30 Hct 31.4 % (42.0-52.0) L 06/17/17 12:30 MCV 92.1 fl (80.0-105.0) 06/17/17 12:30 MCH 29.6 pg (25.0-35.0) 06/17/17 12:30 MCHC 32.2 g/dl (31.0-37.0) 06/17/17 12:30 RDW 15.6 % (11.5-14.5) H 06/17/17 12:30 Plt Count 110 10^3/uL (120.0-450.0) L 06/17/17 12:30 MPV 10.6 fl (7.0-11.0) 06/17/17 12:30 Gran % 71.3 % (50.0-68.0) H 06/17/17 12:30 Lymph % (Auto) 19.1 % (22.0-35.0) L 06/17/17 12:30 [place] % (Auto) 7.8 % (1.0-6.0) H 06/17/17 12:30 Eos % (Auto) 1.6 % (1.5-5.0) 06/17/17 12:30 Baso % (Auto) 0.2 % (0.0-3.0) 06/17/17 12:30 Gran # 4.10 (1.4-6.5) 06/17/17 12:30 Lymph # (Auto) 1.1 (1.2-3.4) L 06/17/17 12:30 [place] # (Auto) 0.5 (0.1-0.6) 06/17/17 12:30 Eos # (Auto) 0.1 (0.0-0.7) 06/17/17 12:30 Baso # (Auto) 0.01 K/mm3 (0.0-2.0) 06/17/17 12:30 PT 13.4 SECONDS (9.4-12.5) H 06/16/17 01:21 INR 1.17 (0.93-1.08) H 06/16/17 01:21 APTT 28.7 Seconds (25.1-36.5) 06/16/17 01:21 Sodium 135 mmol/L (132-148) 06/16/17 09:50 Potassium 4.2 mmol/L (3.6-5.0) 06/16/17 09:50 Chloride 94 mmol/L (98-107) L 06/16/17 09:50 Carbon Dioxide 25 mmol/L (21-33) 06/16/17 09:50 Anion Gap 20 (10-20) 06/16/17 09:50 BUN 65 mg/dL (7-21) H 06/16/17 09:50 Creatinine 9.2 mg/dl (0.8-1.5) H* 06/16/17 09:50 Est GFR ( Amer) 7 06/16/17 09:50 Est GFR (Non-Af Amer) 6 06/16/17 09:50 POC Glucose (mg/dL) 207 mg/dL (65-110) H 06/17/17 22:06 Random Glucose 112 mg/dL (70-110) H 06/16/17 09:50 Calcium 8.8 mg/dL (8.4-10.5) 06/16/17 09:50 Iron 67 ug/dL (45-180) 06/16/17 16:21 TIBC 275 ug/dL (261-462) 06/16/17 16:21 % Saturation 24 % (20-55) 06/16/17 16:21 Ferritin 1090.0 ng/mL 06/16/17 16:21 Total Bilirubin 0.5 mg/dL (0.2-1.3) 06/16/17 09:50 AST 41 U/L (17-59) 06/16/17 09:50 ALT 41 U/L (7-56) 06/16/17 09:50 Alkaline Phosphatase 47 U/L (38-126) 06/16/17 09:50 Total Creatine Kinase 268 U/L (35-230) H 06/16/17 01:21 CK-MB (CK-2) 6.9 ng/mL (0.0-3.6) H 06/16/17 01:21 CK-MB (CK-2) % 2.6 % (2.5-3.0) 06/16/17 01:21 Troponin I 0.21 ng/mL H* 06/16/17 09:50 NT-Pro-B Natriuret Pep 76221 pg/mL (0-450) H 06/16/17 01:21 Total Protein 6.7 g/dL (5.8-8.3) 06/16/17 09:50 Albumin 3.3 g/dL (3.0-4.8) 06/16/17 09:50 Globulin 3.4 gm/dL 06/16/17 09:50 Albumin/Globulin Ratio 1.0 (1.1-1.8) L 06/16/17 09:50 Blood Type B POSITIVE 06/16/17 16:21 Antibody Screen Negative 06/16/17 16:21 Crossmatch See Detail 06/16/17 16:21 BBK History Checked Patient has bt 06/16/17 16:21 - Constitutional Appears: Well, No Acute Distress - Head Exam Head Exam: ATRAUMATIC, NORMAL INSPECTION, NORMOCEPHALIC Additional comments: Sitting at edge of bed not in distress. - Eye Exam Eye Exam: Normal appearance - ENT Exam ENT Exam: Normal External Ear Exam - Neck Exam Neck Exam: Normal Inspection - Respiratory Exam Respiratory Exam: NORMAL BREATHING PATTERN - Cardiovascular Exam Cardiovascular Exam: absent: JVD - GI/Abdominal Exam GI & Abdominal Exam: absent: Distended - Rectal Exam Rectal Exam: Deferred - Exam Additional comments: Deferred. - Extremities Exam Extremities Exam: Normal Inspection - Back Exam Back Exam: NORMAL INSPECTION - Neurological Exam Neurological Exam: Alert, Awake, Oriented x3 - Psychiatric Exam Psychiatric exam: Normal Affect, Normal Mood - Skin Skin Exam: Normal Color Assessment and Plan - Assessment and Plan (Free Text) Assessment: Diabetic neuropathy. HTN. CAD. DM II. RENATA. Obesity. Plan: Neurontin 300 mg PO x 1. Continue present management as per PMD.
[2017-06-18] MEDS: Pantoprazole 40 mg EC Tab PO SCH (08:31)
[2017-06-18] MEDS: Insulin Human NPH 1 UNITS/0.01 ML SC SCH ×3 (08:33→17:45)
[2017-06-18] MEDS: Insulin Reg-LOW-Coverage SC SCH ×4 (08:35→22:22)
[2017-06-18] MEDS: Omega-3-Acid Ethyl Esters 1 GM Cap PO SCH ×2 (09:47→17:34)
[2017-06-18] MEDS: Multivitamin Therapeutic Tab PO SCH (09:47)
[2017-06-18] MEDS: DICLOFENAC SODIUM APPL TOP SCH (09:49)
[2017-06-18] MEDS: SALMETEROL XINAFOATE INH SCH ×2 (09:52→17:08)
[2017-06-18] MEDS: FLUTICASO INH SCH ×2 (09:52→17:08)
[2017-06-18] MEDS: METRONIDAZOLE 0.75% TOP SCH (09:56)
[2017-06-18] MEDS: APPL TOP SCH (09:56)
--- NOTE | 2017-06-18 16:05 | PN ---
DATE: 06/18/2017 SUBJECTIVE: The patient is seen sitting in bed. He is awake, he is alert, he is comfortable. He denies any chest pain. He denies any shortness of breath. PHYSICAL EXAMINATION: GENERAL: Middle-aged male sitting in bed. VITAL SIGNS: Blood pressure 142/59, heart rate 68, respiratory rate 18, temperature 98.1. HEENT: Normocephalic, atraumatic. NECK: Supple, no JVD. LUNGS: Bilateral equal air entry, no rales. CARDIAC: S1, S2, regular rate and rhythm, no murmur, no rub. ABDOMEN: Obese, distended, soft, nontender, bowel sounds present. EXTREMITIES: No lower extremity edema, chronic stasis changes, shiny hairless skin. INTAKE AND OUTPUT: Not charted. LABORATORY DATA: No new labs. MEDICATIONS: Ambien, Apresoline, Claritin, Voltaren, Drisdol, DuoNeb, Ecotrin, Flomax, insulin, Lasix 40 p.o. b.i.d., Lipitor, Lovaza, Flagyl ointment, Neurontin, PhosLo, Plavix, Protonix. ASSESSMENT: 1. Chest pain, atypical/noncardiac?. 2. Non-insulin dependent diabetes mellitus. 3. Hypertension. 4. Peripheral vascular disease. 5. Coronary artery disease, recent percutaneous transluminal coronary angioplasty and stent to the left anterior descending. PLAN: 1. Discussed with Dr. Goodwin most likely musculoskeletal pain. No plans for any intervention. 2. Dialysis tomorrow. 3. Change Neurontin to once a day, max dose for ESRD. 4. Monitor fingersticks. 5. Discharge planning. Eva Malcolm MD
--- NOTE | 2017-06-18 19:19 | PN ---
DATE: 06/18/2017 PULMONARY PROGRESS NOTE REFERRING PHYSICIAN: Diana Kessler MD SUBJECTIVE: Sitting on the bed. Nursing staff at bedside. Night was unremarkable. Tolerated CPAP well. Feels better. No headache. No rhinitis. Wheezing is better. No nausea. No vomiting. No diarrhea. OBJECTIVE GENERAL: In no acute distress. VITAL SIGNS: Temperature 98, heart rate 68, respiratory rate is 18, blood pressure 141/58, pulse ox 98% on nasal cannula. HEENT: Moist mucous membrane. Crowded airway. Mallampati score is IV. NECK: Supple. No JVD. LUNGS: Has a prolonged expiratory phase. No wheezing. HEART: S1 and S2. ABDOMEN: Soft, nontender. No organomegaly. EXTREMITIES: There is no significant edema. NEUROLOGIC: Awake, alert. Follows simple commands. MEDICATIONS: He is on Ambien 5 mg at bedtime p.r.n., hydralazine 20 mg q.i.d, Claritin 10 mg daily, Voltaren at affected area daily, DuoNeb every 6 hours, Ecotrin 81 mg daily, Flomax 0.4 mg daily, insulin coverage, Lasix 40 mg twice a day, Lipitor 10 mg daily, Lovaza 2 g twice a day, Neurontin 300 mg daily, Plavix 75 mg daily, Protonix 40 mg daily, also getting Singulair 10 mg daily, Starlix 120 mg a.c.D., also Starlix 60 a.c.L., multivitamins daily, TriCor 145 mg daily. LABORATORY DATA: Reviewed and noted. Blood sugar this morning 315. IMPRESSION AND PLAN: Chronic obstructive lung disease; obstructive sleep apnea syndrome; coronary artery disease, status post coronary stent; hypertension; diabetes; renal failure, dialysis dependent. Pulmonary point of view, doing okay. Encourage CPAP use. Keep head at 45 degree. P.o. and inhaled bronchodilator. Cardiology followup; if clear, may go home by the Cardiology. Thank you and we will follow with you. Jarred Escalera MD
[2017-06-18] MEDS: Latanoprost 2.5 ml Opht Soln OU SCH (22:24)
[2017-06-19] MEDS: Albuterol-Ipratrop 3 mg / 0.5 (3 ml) UD IH SCH ×3 (01:41→14:00)
[2017-06-19 06:34] VITALS: O2SAT 98
[2017-06-19 07:06] LABS: BASO # 0.02 K/mm3 (0.0-2.0); BASO % 0.3 % (0.0-3.0); EOS # 0.1 (0.0-0.7); EOS % 2.2 % (1.5-5.0); GRAN # 3.74 (1.4-6.5); HEMOGLOBIN 9.5 g/dL (14.0-18.0); LYMPH # 1.4 (1.2-3.4); LYMPH % 24.1 % (22.0-35.0); MEAN CELL VOLUME 89.6 fl (80.0-105.0); MEAN CORPUSCULAR HEMOGLOBIN 29.1 pg (25.0-35.0); MEAN CORPUSCULAR HGB CONC 32.4 g/dl (31.0-37.0); MEAN PLATELET VOLUME 12.2 fl (7.0-11.0); MONO # 0.6 (0.1-0.6); MONO % 10.4 % (1.0-6.0); RBC 3.27 10^6/uL (3.5-6.1); RED CELL DISTRIBUTION WIDTH 15.8 % (11.5-14.5); WHITE BLOOD COUNT 5.9 10^3/ul (4.5-11.0)
[2017-06-19 07:23] LABS: ALBUMIN 3.8 g/dL (3.0-4.8); CALCIUM 9.6 mg/dL (8.4-10.5)
[2017-06-19 07:24] LABS: TROPONIN I 0.1 ng/mL
--- NOTE | 2017-06-19 07:28 | PN ---
DATE: 06/18/2017 LOCATION: The patient is in room 269, bed 1. REASON FOR CONSULTATION AND FOLLOWUP: Chest pain, coronary artery disease, recent stent insertion in LAD on 06/12/2017, episode of bradycardia while patient was on metoprolol. SUBJECTIVE: Patient is chest pain-free. Denies any shortness of breath, denies palpitations. On admission, patient with chest pain, has also local tenderness, anterior chest wall, which also has cleared. Patient had an episode of bradycardia with dizziness, which responded to atropine and then metoprolol was stopped and since then, the patient's heart rate is staying between 50 and 60 and the patient is asymptomatic. PHYSICAL EXAMINATION VITAL SIGNS: Blood pressure 136/49, respirations 20, pulse 60, temperature 98.1. HEENT: Head is normocephalic. Eyes: Pupils normal. Conjunctivae slightly pale. NECK: JVP low. Carotids are equal. Thorax: AP diameter normal. LUNGS: Clear. CARDIOVASCULAR: S1, S2. Ejection systolic murmur. No rub. ABDOMEN: Soft, nontender. No organomegaly. EXTREMITIES: No clubbing, no cyanosis. No chest wall tenderness. LABORATORY DATA: WBC is 5.8, hemoglobin 10.1, hematocrit 31.4, and platelets 110. Sodium 135. BUN 65, creatinine 9.2. Sugar 134. Initial troponin 0.21, second troponin also 0.21. DIAGNOSES: The patient's chest pain with associated anterior chest wall tenderness was probably musculoskeletal and slight troponin elevation, probably is a remnant of a previous angioplasty on 06/12/2017 on left anterior descending coronary artery because on 06/13/2017, troponin was 0.51. Patient has renal failure, on dialysis, so troponin from the previous procedure due to renal failure. Patient had episode of bradycardia, responded to atropine, and later on, we stopped the Lopressor, since then states the rate has been stable; history of multiple angioplasties and stent insertion in the past; diabetic nephropathy; diabetic neuropathy; hypertension; hyperlipidemia; diabetes mellitus; obesity; pulmonary hypertension; right ventricular systolic pressure 89 mmHg suggestive of severe pulmonary hypertension; moderate aortic regurgitation; mild mitral regurgitation; moderate tricuspid regurgitation; left ventricle ejection fraction of 55%; renal failure, on dialysis. PLAN: We will continue hydralazine 20 four times daily; aspirin 81 mg daily; Plavix 75 daily; Flomax 0.4 daily; insulin as ordered; furosemide 40 b.i.d.; atorvastatin 10 daily; Lyrica 50 t.i.d.; Protonix 40 daily; Singulair 10 mg at bedtime; metoprolol 50 daily, which has been on hold; Tricor 145 daily. We will follow with you. We will repeat TSH and troponin in the morning. The patient going for dialysis tomorrow morning. Jarred Goodwin MD
[2017-06-19] MEDS: Insulin Human NPH 1 UNITS/0.01 ML SC SCH (08:30)
[2017-06-19] MEDS: Insulin Reg-LOW-Coverage SC SCH ×2 (08:30→12:10)
[2017-06-19] MEDS: Pantoprazole 40 mg EC Tab PO SCH (08:47)
--- NOTE | 2017-06-19 09:25 | PN ---
DATE: 06/17/2017 SUBJECTIVE: The patient is a 52-year-old male. The patient is seen and examined on the bedside, looking comfortable. Chest pain is better. Awake, alert. No fever, no chills. No nausea, vomiting or diarrhea. No headache, no dizziness. No shortness of breath. No dysuria. No hematuria. PHYSICAL EXAMINATION VITAL SIGNS: Blood pressure 140/50, heart rate 50, respiratory rate 18, temperature 97.8. HEENT: Head normocephalic, atraumatic. Eyes, PERRLA. Extraocular movements are intact. Conjunctivae clear. Nose patent. Mucous membranes are moist. NECK: Supple. No carotid bruits. No JVD, no thyromegaly. CHEST: Bilaterally symmetrical. HEART: S1 and S2 positive. LUNGS: Clear to auscultation. ABDOMEN: Soft. Bowel sounds are present. No organomegaly. EXTREMITIES: No edema. No cyanosis. NEUROLOGIC: The patient is awake and alert. Moving all 4 extremities. No focal deficit. LABORATORY DATA: White blood cells 5.9, hemoglobin 10, hematocrit 31, platelets 110. Sodium 135, potassium 4.2, BUN 65, creatinine 6.2, glucose 112. MEDICATIONS: Ambien, hydralazine, Claritin, Voltaren, vitamin D, DuoNeb, Ecotrin, Flomax, Lasix, Lipitor, Lovaza, Lyrica, Plavix, Protonix, Singulair, Toprol, TriCor. ASSESSMENT AND PLAN: The patient is 52-year-old male with insulin-dependent diabetes mellitus, not controlled; has acute coronary syndrome, catheterization, stent to the left anterior descending, anemia of chronic disease, status post one unit of blood transfusion yesterday, end-stage renal disease, on hemodialysis, has diabetic neuropathy, diabetic nephropathy, diabetic retinopathy. Blood pressure is getting under control. Continue aspirin, Plavix, beta-valerie, lipid-lowering agent, monitoring of fingerstick. Marketing Reporting Analyst is on the case, chronic obstructive lung disease with sleep apnea syndrome. Continue to encourage CPAP. Keep head elevated up to [address] Escalera, we will decrease CPAP to 5 cm, inhaled bronchodilators. We will follow up. Diana Kessler MD [facility] # [id number]
--- NOTE | 2017-06-19 10:09 | PN ---
DATE: 06/18/2017 SUBJECTIVE: Patient is a 52-year-old male. Patient was seen and examined at the bedside, looking comfortable. No nausea, vomiting, diarrhea. No hematuria or hematochezia. No swelling of the legs. No chest pain, no palpitation. Last night patient had episode of numbness of the right arm and right hand. According to him he was taking Neurontin at home and over here he is taking Lyrica, but Neurontin helps him more. Seen by Dr. Fajardo. He gave one dose of Neurontin now. I discontinued Lyrica and as he started Neurontin 300 three times a day. No fever, no chills. No nausea, vomiting, diarrhea. No hematuria or hematochezia. No headache, no dizziness. PHYSICAL EXAMINATION: VITAL SIGNS: Temperature 98.1, blood pressure 142/ 80 , heart rate 58, respiratory rate 18. HEENT: Head: Normocephalic, atraumatic. Eyes: PERRLA. Extraocular movements intact. Conjunctivae clear. Nose patent. Mucous membranes moist. NECK: Supple. No carotid bruit. No JVD or thyromegaly. CHEST: Bilaterally symmetrical. HEART: S1 and S2 positive. Heart rate and rhythm regular. No murmur. No rub. LUNGS: Bilaterally equal air entry, clear, no rales. ABDOMEN: Obese, distended, soft, nontender. No organomegaly. EXTREMITIES: Trace edema. Chronic stasis changes, shiny, hairless skin. MEDICATIONS: Ambien, hydralazine, Claritin, albuterol, Flomax, insulin, Lasix, Lipitor, Lovaza, Neurontin, Plavix, Prandin, Protonix, Singulair, Starlix, multivitamin, TriCor. LABORATORY DATA: White blood cells 5.8, hemoglobin 10.1, hematocrit 31.4, platelets 110. Glucose 315. ASSESSMENT AND PLAN: a 52-year-old male who came with chest pain that is atypical, noncardiac as per foundry superintendant; insulin-dependent diabetes mellitus, not controlled; hypertension, well controlled; peripheral vascular disease; peripheral neuropathy; diabetic retinopathy; diabetic neuropathy; diabetic nephropathy; coronary artery disease; recent percutaneous transluminal coronary angioplasty and stent to the left anterior descending; obesity. Appreciate Dr. Malcolm's and Dr. Goodwin's input. According to foundry superintendant, pain is like musculoskeletal. Getting dialysis. Will get dialysis tomorrow. Per Dr. Malcolm, we can give only Neurontin once a day because of end-stage renal disease, appreciated. Monitoring fingerstick. Maybe discharged home after dialysis tomorrow. Gastrointestinal and deep vein thrombosis prophylaxis. Repeat labs. Diana Kessler MD MTDD
[2017-06-19] MEDS: DICLOFENAC SODIUM APPL TOP SCH (11:52)
[2017-06-19] MEDS: Multivitamin Therapeutic Tab PO SCH (12:03)
[2017-06-19] MEDS: Omega-3-Acid Ethyl Esters 1 GM Cap PO SCH (12:04)
[2017-06-19] MEDS: FLUTICASO INH SCH (12:07)
[2017-06-19] MEDS: APPL TOP SCH (12:07)
[2017-06-19] MEDS: METRONIDAZOLE 0.75% TOP SCH (12:07)
[2017-06-19] MEDS: SALMETEROL XINAFOATE INH SCH (12:07)
[2017-06-19 12:13] VITALS: BP 154/61
[2017-06-19 14:06] VITALS: PULSE 59
--- NOTE | 2017-06-19 14:24 | CP.PCM.DIS ---
<AnnalisaLynricky Louis - Last Filed: 06/19/17 14:40> Provider - Provider Date of Admission: 06/16/17 15:10 Attending physician: Diana Kessler MD Primary care physician: Diana Kessler MD Consults: Cardio - Nephro - Dr. Malcolm Pulmo - Dr. Escalera Time Spent in preparation of Discharge (in minutes): 40 Diagnosis - Discharge Diagnosis (1) Bradycardia Status: Acute (2) Chest pain Status: Acute (3) ACS (acute coronary syndrome) Status: Acute (4) Dehydration Status: Acute (5) ESRD (end stage renal disease) Status: Acute (6) Pulmonary hypertension, moderate to severe Status: Acute (7) Shortness of breath Status: Acute Hospital Course - Lab Results Lab Results: Most Recent Lab Values WBC 5.9 10^3/ul (4.5-11.0) 06/19/17 06:40 RBC 3.27 10^6/uL (3.5-6.1) L 06/19/17 06:40 Hgb 9.5 g/dL (14.0-18.0) L 06/19/17 06:40 Hct 29.3 % (42.0-52.0) L 06/19/17 06:40 MCV 89.6 fl (80.0-105.0) 06/19/17 06:40 MCH 29.1 pg (25.0-35.0) 06/19/17 06:40 MCHC 32.4 g/dl (31.0-37.0) 06/19/17 06:40 RDW 15.8 % (11.5-14.5) H 06/19/17 06:40 Plt Count 103 10^3/uL (120.0-450.0) L 06/19/17 06:40 MPV 12.2 fl (7.0-11.0) H 06/19/17 06:40 Gran % 63.0 % (50.0-68.0) 06/19/17 06:40 Lymph % (Auto) 24.1 % (22.0-35.0) 06/19/17 06:40 [place] % (Auto) 10.4 % (1.0-6.0) H 06/19/17 06:40 Eos % (Auto) 2.2 % (1.5-5.0) 06/19/17 06:40 Baso % (Auto) 0.3 % (0.0-3.0) 06/19/17 06:40 Gran # 3.74 (1.4-6.5) 06/19/17 06:40 Lymph # (Auto) 1.4 (1.2-3.4) 06/19/17 06:40 [place] # (Auto) 0.6 (0.1-0.6) 06/19/17 06:40 Eos # (Auto) 0.1 (0.0-0.7) 06/19/17 06:40 Baso # (Auto) 0.02 K/mm3 (0.0-2.0) 06/19/17 06:40 PT 13.4 SECONDS (9.4-12.5) H 06/16/17 01:21 INR 1.17 (0.93-1.08) H 06/16/17 01:21 APTT 28.7 Seconds (25.1-36.5) 06/16/17 01:21 Sodium 135 mmol/L (132-148) 06/19/17 06:40 Potassium 4.8 mmol/L (3.6-5.0) 06/19/17 06:40 Chloride 94 mmol/L (98-107) L 06/19/17 06:40 Carbon Dioxide 23 mmol/L (21-33) 06/19/17 06:40 Anion Gap 22 (10-20) H 06/19/17 06:40 BUN 79 mg/dL (7-21) H 06/19/17 06:40 Creatinine 12.0 mg/dl (0.8-1.5) H* D 06/19/17 06:40 Est GFR ( Amer) 5 06/19/17 06:40 Est GFR (Non-Af Amer) 4 06/19/17 06:40 POC Glucose (mg/dL) 157 mg/dL (65-110) H 06/19/17 11:36 Random Glucose 179 mg/dL (70-110) H 06/19/17 06:40 Calcium 9.6 mg/dL (8.4-10.5) 06/19/17 06:40 Phosphorus 6.2 mg/dL (2.5-4.5) H 06/19/17 06:40 Magnesium 2.6 mg/dL (1.7-2.2) H 06/19/17 06:40 Iron 67 ug/dL (45-180) 06/16/17 16:21 TIBC 275 ug/dL (261-462) 06/16/17 16:21 % Saturation 24 % (20-55) 06/16/17 16:21 Ferritin 1090.0 ng/mL 06/16/17 16:21 Total Bilirubin 0.7 mg/dL (0.2-1.3) 06/19/17 06:40 AST 37 U/L (17-59) 06/19/17 06:40 ALT 29 U/L (7-56) 06/19/17 06:40 Alkaline Phosphatase 53 U/L (38-126) 06/19/17 06:40 Total Creatine Kinase 268 U/L (35-230) H 06/16/17 01:21 CK-MB (CK-2) 6.9 ng/mL (0.0-3.6) H 06/16/17 01:21 CK-MB (CK-2) % 2.6 % (2.5-3.0) 06/16/17 01:21 Troponin I 0.10 ng/mL D 06/19/17 06:40 NT-Pro-B Natriuret Pep 99765 pg/mL (0-450) H 06/16/17 01:21 Total Protein 7.8 g/dL (5.8-8.3) 06/19/17 06:40 Albumin 3.8 g/dL (3.0-4.8) 06/19/17 06:40 Globulin 4.0 gm/dL 06/19/17 06:40 Albumin/Globulin Ratio 1.0 (1.1-1.8) L 06/19/17 06:40 TSH 3rd Generation 6.31 mIU/mL (0.46-4.68) H 06/19/17 07:00 Blood Type B POSITIVE 06/16/17 16:21 Antibody Screen Negative 06/16/17 16:21 Crossmatch See Detail 06/16/17 16:21 BBK History Checked Patient has bt 06/16/17 16:21 - Hospital Course Hospital Course: 52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 stents, TIA, & asthma. On 06/12, pt went for cardiac cath through R groin with new cardiac stent insertion. Pt admitted to [facility] with renal failure, dizziness ( secondary to hypotension), and chest pain. After becoming unresponsive, pt was found to have elevated serial tropins, NSTEMI and hypotension. Pt was transferred to ICU for elevated troponins and dopamine drip. He was discharge home on 06/14 and readmitted on 06/16 for bradycardia & chest pain (pressure like sensation, non-radiating, associated with SOB and dizziness). As per EMS, 325mg of Aspirin was administered in route to the emergency department. 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 Beta blockers are hold. Possible etiology of chest pain is musculoskeletal. Consider Sales Project Engineer recommendation: daily asa w. plavix x1yr, aggressive medical therapy, weight loss, & consider sleep study. Pt is safely discharged home and f/u with Cardio, Nephro & our office. Reviewed: ECG = ABNORMAL, junctional bradycardia, L axis deviation CXR = 06/16 WNL Cardiac Cath = stent RCA, EF 55%, mild & distal LAD 70% stenoses w. stent insertion ECHO = EF 55%, mild concentric LVH, severe pulmonary hypertension ECG = ABNORMAL, SR 1AVB, min voltage criteria for LVH, may be normal variant, nonspecific T wave abnormality, prolonged QT CXR = potential residual or recurrent pulmonary venous congestion, stable cardiomegaly - Date & Time of H&P Date of H&P: 06/19/17 Time of H&P: 10:30 Discharge Exam - Head Exam Head Exam: ATRAUMATIC, NORMAL INSPECTION, NORMOCEPHALIC - Eye Exam Eye Exam: Normal appearance - ENT Exam ENT Exam: Mucous Membranes Moist - Neck Exam Neck exam: Full Rom - Respiratory Exam Respiratory Exam: Clear to PA & Lateral, NORMAL BREATHING PATTERN, UNREMARKABLE - Cardiovascular Exam Cardiovascular Exam: Bradycardia, +S1, +S2 - GI/Abdominal Exam GI & Abdominal Exam: Normal Bowel Sounds, Unremarkable - Rectal Exam Rectal Exam: NORMAL INSPECTION - Extremities Exam Extremities exam: normal inspection Additional comments: L AV fistula - Neurological Exam Neurological exam: Alert, Normal Gait, Oriented x3 - Psychiatric Exam Psychiatric exam: Normal Affect, Normal Mood - Skin Skin Exam: Dry, Intact, Normal Color, Warm Discharge Plan - Follow Up Plan Condition: GUARDED Disposition: HOME/ ROUTINE Instructions: Type 2 Diabetes, Bradycardia, Heart Healthy Diet, Dialysis Diet , Chest Pain (GEN) Additional Instructions: Discharge Instructions: Follow up with Dr. Wakefield within 1 week of discharge. Follow a Heart healthy/renal diet as instructed. If chest pain occurs again, go to the nearest emergency room or call 911. Referrals: Diana Kessler MD [Primary Care Provider] - <Diana Kessler - Last Filed: 06/19/17 17:33> Provider - Provider Date of Admission: 06/16/17 15:10 Attending physician: Diana Kessler MD Primary care physician: Diana Kessler MD Hospital Course - Lab Results Lab Results: Most Recent Lab Values WBC 5.9 10^3/ul (4.5-11.0) 06/19/17 06:40 RBC 3.27 10^6/uL (3.5-6.1) L 06/19/17 06:40 Hgb 9.5 g/dL (14.0-18.0) L 06/19/17 06:40 Hct 29.3 % (42.0-52.0) L 06/19/17 06:40 MCV 89.6 fl (80.0-105.0) 06/19/17 06:40 MCH 29.1 pg (25.0-35.0) 06/19/17 06:40 MCHC 32.4 g/dl (31.0-37.0) 06/19/17 06:40 RDW 15.8 % (11.5-14.5) H 06/19/17 06:40 Plt Count 103 10^3/uL (120.0-450.0) L 06/19/17 06:40 MPV 12.2 fl (7.0-11.0) H 06/19/17 06:40 Gran % 63.0 % (50.0-68.0) 06/19/17 06:40 Lymph % (Auto) 24.1 % (22.0-35.0) 06/19/17 06:40 [place] % (Auto) 10.4 % (1.0-6.0) H 06/19/17 06:40 Eos % (Auto) 2.2 % (1.5-5.0) 06/19/17 06:40 Baso % (Auto) 0.3 % (0.0-3.0) 06/19/17 06:40 Gran # 3.74 (1.4-6.5) 06/19/17 06:40 Lymph # (Auto) 1.4 (1.2-3.4) 06/19/17 06:40 [place] # (Auto) 0.6 (0.1-0.6) 06/19/17 06:40 Eos # (Auto) 0.1 (0.0-0.7) 06/19/17 06:40 Baso # (Auto) 0.02 K/mm3 (0.0-2.0) 06/19/17 06:40 PT 13.4 SECONDS (9.4-12.5) H 06/16/17 01:21 INR 1.17 (0.93-1.08) H 06/16/17 01:21 APTT 28.7 Seconds (25.1-36.5) 06/16/17 01:21 Plt P2Y12 React Units 241 PRU (194-418) 06/19/17 15:42 Sodium 135 mmol/L (132-148) 06/19/17 06:40 Potassium 4.8 mmol/L (3.6-5.0) 06/19/17 06:40 Chloride 94 mmol/L (98-107) L 06/19/17 06:40 Carbon Dioxide 23 mmol/L (21-33) 06/19/17 06:40 Anion Gap 22 (10-20) H 06/19/17 06:40 BUN 79 mg/dL (7-21) H 06/19/17 06:40 Creatinine 12.0 mg/dl (0.8-1.5) H* D 06/19/17 06:40 Est GFR ( Amer) 5 06/19/17 06:40 Est GFR (Non-Af Amer) 4 06/19/17 06:40 POC Glucose (mg/dL) 157 mg/dL (65-110) H 06/19/17 11:36 Random Glucose 179 mg/dL (70-110) H 06/19/17 06:40 Calcium 9.6 mg/dL (8.4-10.5) 06/19/17 06:40 Phosphorus 6.2 mg/dL (2.5-4.5) H 06/19/17 06:40 Magnesium 2.6 mg/dL (1.7-2.2) H 06/19/17 06:40 Iron 67 ug/dL (45-180) 06/16/17 16:21 TIBC 275 ug/dL (261-462) 06/16/17 16:21 % Saturation 24 % (20-55) 06/16/17 16:21 Ferritin 1090.0 ng/mL 06/16/17 16:21 Total Bilirubin 0.7 mg/dL (0.2-1.3) 06/19/17 06:40 AST 37 U/L (17-59) 06/19/17 06:40 ALT 29 U/L (7-56) 06/19/17 06:40 Alkaline Phosphatase 53 U/L (38-126) 06/19/17 06:40 Total Creatine Kinase 268 U/L (35-230) H 06/16/17 01:21 CK-MB (CK-2) 6.9 ng/mL (0.0-3.6) H 06/16/17 01:21 CK-MB (CK-2) % 2.6 % (2.5-3.0) 06/16/17 01:21 Troponin I 0.10 ng/mL D 06/19/17 06:40 NT-Pro-B Natriuret Pep 26961 pg/mL (0-450) H 06/16/17 01:21 Total Protein 7.8 g/dL (5.8-8.3) 06/19/17 06:40 Albumin 3.8 g/dL (3.0-4.8) 06/19/17 06:40 Globulin 4.0 gm/dL 06/19/17 06:40 Albumin/Globulin Ratio 1.0 (1.1-1.8) L 06/19/17 06:40 TSH 3rd Generation 6.31 mIU/mL (0.46-4.68) H 06/19/17 07:00 Blood Type B POSITIVE 06/16/17 16:21 Antibody Screen Negative 06/16/17 16:21 Crossmatch See Detail 06/16/17 16:21 BBK History Checked Patient has bt 06/16/17 16:21 - Hospital Course Hospital Course: pt is seen and examined at bed side , agreed all above , chart , meds and labs noted , will f/u
[2017-06-19 14:50] VITALS: RESP 18; TEMP 97.8
--- NOTE | 2017-06-19 17:10 | PN ---
DATE: 06/18/2017 REASON FOR CONSULTATION AND FOLLOWUP: Chest pain, coronary artery disease, status post PTCA on 06/11/2017; episode of bradycardia while patient is on beta-valerie. SUBJECTIVE: Patient denies any chest pain, shortness of breath, or any palpitations. PHYSICAL EXAMINATION GENERAL: Not in any apparent distress. VITAL SIGNS: Temperature afebrile, heart rate 59, and blood pressure 154/61. HEENT: PERRLA. Extraocular muscles are intact. NECK: Supple. No carotid bruit or thyromegaly. CHEST: Clear to auscultation. HEART: S1 and S2, regular. ABDOMEN: Soft. EXTREMITIES: Clubbing and cyanosis, negative. LABORATORY DATA: EKG shows a normal sinus, no acute ST-T changes noted. Blood workup as follows: WBC 5.9, hemoglobin 9.1, hematocrit 29.3, and platelet count 103. Chemistry shows sodium 134, potassium 4.2, chloride 94, carbon dioxide 20, anion gap of 22, BUN 79, and creatinine 12. IMPRESSION: Bradycardia, most likely secondary to beta-valerie. On last admission, patient was instructed not to get beta-valerie; this happened last time, but I am not sure how come the patient took beta-valerie. History of coronary artery disease, multiple stents, history of end-stage renal disease, history of diabetic retinopathy, diabetic nephropathy, history of unstable angina; last admission, patient underwent 2 stents after fractional flow reserve was done and the patient was found to be in significant stenosis, borderline 70%, fractional flow reserve done was significant. So, the patient underwent percutaneous transluminal coronary angioplasty, fractional flow reserve-guided, 2 drug-eluting stents in the mid and distal left anterior descending. No evidence of acute myocardial infraction at this time, though episode of bradycardia most likely secondary to beta-valerie. Patient has a baseline heart rate of 59, on the top of that patient get beta-valerie, so his heart rate decrease. If emphasized again, clearly the patient should not take the beta-valerie. 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 So, discussed in length about the beta-valerie. Also, we will discuss with Dr. Kessler to not to give beta-valerie as the outpatient. We will also send the blood for P2Y12. We will discontinue telemetry and send the blood stat for P2Y12. Thank you Dr. Kessler for providing us the opportunity in taking care of the patient, Jason Berger. Jarred Erickson MD
--- NOTE | 2017-06-19 20:55 | PN ---
DATE: 06/19/2017 SUBJECTIVE: Patient is seen sitting in bed. He is awake, he is alert, he is comfortable. He denies any pain. He denies any shortness of breath. He had dialysis earlier today. PHYSICAL EXAMINATION: GENERAL: Middle-aged male, sitting in bed. VITAL SIGNS: Blood pressure 154/61, heart rate 59, respiratory rate 18, temperature 97.8. HEENT: Normocephalic, atraumatic. NECK: Supple, no JVD. LUNGS: Bilateral equal air entry, bilateral equal expansion, no rales. CARDIAC: S1 and S2, regular rate and rhythm, no murmur, no rub. ABDOMEN: Obese, distended, soft, nontender, bowel sounds present. EXTREMITIES: No lower extremity edema, chronic stasis changes. Intake and output not charted. LABORATORY DATA: WBC 5.9, hemoglobin 9.5, hematocrit 29, platelets 103. Sodium 135, potassium 4.8, chloride 94, CO2 of 23, BUN 79, creatinine 4.0, glucose 179, calcium 9.6, phosphorus 6.2, magnesium 2.6. MEDICATIONS: List reviewed. ASSESSMENT: 1. Chest pain, atypical, musculoskeletal (?). 2. End stage renal disease. 3. Xul-ubxftnh-cardohtjy diabetes mellitus. 4. Hypertension. 5. Anemia of chronic kidney disease. 6. Diabetic neuropathy. PLAN: 1. Continue Neurontin 300 mg daily only. 2. Stable dialysis today. 3. Off Toprol-XL for now. 4. Follow up with Cardiology outpatient. 5. No objection to discharge. Eva Malcolm MD
--- NOTE | 2017-06-19 23:29 | PN ---
DATE: 06/19/2017 PULMONARY PROGRESS NOTE REFERRING PHYSICIAN: Diana Kessler MD SUBJECTIVE: He is getting ready to go home being discharged. Night was unremarkable. No more chest pain. No shortness of breath. No nausea. No vomiting. No diarrhea. No leg pain or leg swelling. OBJECTIVE GENERAL: In no acute distress. VITAL SIGNS: Temperature 98, heart rate 59, respiratory rate is 18, blood pressure 154/61, pulse ox 98% on room air. HEENT: Moist mucous membrane. Crowded airway. NECK: Supple. No JVD. LUNGS: Has a fair airflow. HEART: S1 and S2. ABDOMEN: Soft, nontender. No organomegaly. EXTREMITIES: Has trace edema. NEUROLOGIC: Awake, alert. Follows simple commands. MEDICATIONS: Reviewed. No new medication reported since yesterday. LABORATORY DATA: Shows hemoglobin 9.5, hematocrit 29.3, WBC 5.9, platelet count is 103. Sodium 135, potassium 4.8, chloride 94, bicarbonate 23, BUN 79, creatinine 12.0, glucose is 157, calcium is 9.6, phosphorus is 6.2, magnesium 2.6, AST 37, ALT is 29, alk phos is 53, albumin is 3.8. TSH is 6.31. IMPRESSION AND PLAN: Chronic obstructive lung disease; obstructive sleep apnea syndrome; coronary artery disease, status post coronary stent; hypertension; diabetes; renal failure, dialysis dependent. Pulmonary point of view, doing okay. The patient needs to be requalified for CPAP. We have reviewed his old chart when last time sleep study was done. He understood benefit of CPAP and willing to increase CPAP use more than 4 hour every day. Continue inhaled bronchodilator. Jarred Escalera MD
== END 2017-06-19 18:15 | disposition home or self-care (01) | DRG 280 ==
LOC: ED 01:10 → ERH 03:03 → 2RNO 04:20 → OBSVTOIN 15:10
PROVIDERS: ADMIT Internal Medicine; ATTEND Internal Medicine
PROC: 5A1D70Z Performance of Urinary Filtration, Intermittent, Less than 6 Hours Per Day (ICD-10-PCS; principal; 2017-06-16)
PROC: 30233N1 Transfusion of Nonautologous Red Blood Cells into Peripheral Vein, Percutaneous Approach (ICD-10-PCS; 2017-06-16)
PROC: 5A1D70Z Performance of Urinary Filtration, Intermittent, Less than 6 Hours Per Day (ICD-10-PCS; 2017-06-19)
DX: I21.4 Non-ST elevation (NSTEMI) myocardial infarction (principal); N18.6 End stage renal disease; I13.2 Hypertensive heart and chronic kidney disease with heart failure and with stage 5 chronic kidney disease, or end stage renal disease; N25.81 Secondary hyperparathyroidism of renal origin; I95.89 Other hypotension; E86.0 Dehydration; I27.20 Pulmonary hypertension, unspecified; E11.22 Type 2 diabetes mellitus with diabetic chronic kidney disease; E11.319 Type 2 diabetes mellitus with unspecified diabetic retinopathy without macular edema; I25.10 Atherosclerotic heart disease of native coronary artery without angina pectoris; I50.9 Heart failure, unspecified; G47.33 Obstructive sleep apnea (adult) (pediatric); E11.21 Type 2 diabetes mellitus with diabetic nephropathy; I08.3 Combined rheumatic disorders of mitral, aortic and tricuspid valves; D63.1 Anemia in chronic kidney disease; J44.9 Chronic obstructive pulmonary disease, unspecified; E11.40 Type 2 diabetes mellitus with diabetic neuropathy, unspecified; E11.51 Type 2 diabetes mellitus with diabetic peripheral angiopathy without gangrene; E11.42 Type 2 diabetes mellitus with diabetic polyneuropathy; R00.1 Bradycardia, unspecified; T44.7X5A Adverse effect of beta-adrenoreceptor antagonists, initial encounter; E78.5 Hyperlipidemia, unspecified; F41.9 Anxiety disorder, unspecified; E66.9 Obesity, unspecified; Z68.32 Body mass index [BMI] 32.0-32.9, adult; Z99.2 Dependence on renal dialysis; Z94.7 Corneal transplant status; Z95.5 Presence of coronary angioplasty implant and graft; Z86.73 Personal history of transient ischemic attack (TIA), and cerebral infarction without residual deficits; Z88.0 Allergy status to penicillin; Z79.4 Long term (current) use of insulin

== ENCOUNTER 2017-06-23 20:07 | Inpatient (IN) | payer MEDICARE, OTHER ==
--- NOTE | 2017-06-23 20:36 | ED PDOC ---
Arrival/HPI - General Chief Complaint: Chest Pain Time Seen by Provider: 06/23/17 20:16 Historian: Patient - History of Present Illness Narrative History of Present Illness (Text): 06/23/17 20:28 52 year old male, with past medical history of CAD, ESRD on hemodialysis (M/W/F) , diabetes, hypertension, cardiac catherization done on 06/12/17 and stents placed on 06/14/17, presents to the Emergency department complaining of chest pain and shortness of breath for last few days. Patient informs missing dialysis today due to increasing shortness of breath. Patient additionally informs little urinary output. Patient denies any fever, chills, nausea, vomiting, diarrhea, abdominal pain or any other complaints. Time/Duration: < week Symptom Onset: Gradual Symptom Course: Unchanged Quality: Aching Activities at Onset: Light Context: Home Past Medical History - Provider Review Nursing Documentation Reviewed: Yes - Past History Past History: No Previous - Infectious Disease Hx of Infectious Diseases: None - Tetanus Immunization Tetanus Immunization: Up to Date - Reproductive Currently Lactating: No - Cardiac Hx Cardiac Disorders: Yes Hx Congestive Heart Failure: Yes Hx Hypertension: Yes Other/Comment: 2 stents - Pulmonary Hx Chronic Obstructive Pulmonary Disease (COPD): Yes - Neurological Hx Transient Ischemic Attacks (TIA): Yes - HEENT Hx HEENT Disorder: Yes (BILATERAL EYE WITH BLURRY VISION) Hx Cataracts: Yes (HAD SX 05/29/12) Other/Comment: left eye cornea transplant,RENAL RETINOPATHY, glasses - Renal Date of Last Dialysis Treatment: 06/21/17 Other/Comment: m/w/f [facility] - Endocrine/Metabolic Hx Diabetes Mellitus Type 1: Yes - Hematological/Oncological Hx Anemia: Yes (With transfusions) - Integumentary Hx Dermatological Disorder: Yes (BILATERAL EDEMA TO UPPER AND LE,SKIN DRYNESS) - Musculoskeletal/Rheumatological Hx Falls: No Hx Gout: Yes Hx Unsteady Gait: Yes Other/Comment: Use of cane - Gastrointestinal Hx Gastrointestinal Disorders: (hx pancreatitis) Hx Gall Bladder Disease: Yes (CHOLECYSTECTOMY) Hx Gastroesophageal Reflux: Yes Hx Liver Failure: Yes (CKD) Hx Pancreatitis: Yes - Genitourinary/Gynecological Hx Genitourinary Disorders: Yes - Psychiatric Hx Psychophysiologic Disorder: No Hx Substance Use: No - Surgical History Hx Cholecystectomy: Yes (08/15/12) Hx Coronary Stent: Yes (x2 monday06/13/17) Other/Comment: FISTULA - Anesthesia Hx Anesthesia: Yes Hx Anesthesia Reactions: No Hx Malignant Hyperthermia: No - Suicidal Assessment Feels Threatened In Home Enviroment: No Family/Social History - Physician Review Nursing Documentation Reviewed: Yes Family/Social History: No Known Family HX Smoking Status: Never Smoked Hx Alcohol Use: No Hx Substance Use: No Hx Substance Use Treatment: No Allergies/Home Meds Allergies/Adverse Reactions: Allergies insulin aspart [From Novolog] Allergy (Intermediate, Verified 06/23/17 20:14) ITCHING ANY INSULIN THAT STARTS WITH NOV- moxifloxacin Allergy (Intermediate, Verified 06/23/17 20:14) ITCHING Penicillins Allergy (Intermediate, Verified 06/23/17 20:14) ITCHING Home Medications: Home Meds Medication Instructions Recorded Confirmed Calcium Phosphate 2 cap PO TID 06/14/17 06/23/17 Dexlansoprazole [Dexilant] 1 cap PO DAILY 06/14/17 06/23/17 Diclofenac Sodium [Voltaren] 1 appl TOP DAILY 06/14/17 06/23/17 Gabapentin [Neurontin] 300 mg PO TID 06/14/17 06/23/17 HumuLIN R 90 units SQ ACB 06/14/17 06/23/17 HumuLIN R 90 units SQ ACD 06/14/17 06/23/17 Humulin N 70 units SQ ACD 06/14/17 06/23/17 Humulin N 80 units SQ ACB 06/14/17 06/23/17 Lasix 40 mg PO BID 06/14/17 06/23/17 Lumigan 1 drop OU HS 06/14/17 06/23/17 Nateglinide [Starlix] 1 tab PO ACL 06/14/17 06/23/17 Salmeterol Xinafoate/Fluticaso 1 puff INH BID 06/14/17 06/23/17 [Advair Hfa 230-21] Toprol XL 50 mg PO DAILY 06/14/17 06/23/17 Zyrtec 10 mg PO HS 06/14/17 06/23/17 hydrALAZINE 20 mg PO BID 06/14/17 06/23/17 metroNIDAZOLE 0.75% 1 appl TOP DAILY 06/14/17 06/23/17 Ergocalciferol (Vitamin D2) 50,000 unit PO DAILY 06/16/17 06/23/17 [Vitamin D2] Fenofibrate [Triglide] 160 mg PO DAILY 06/16/17 06/23/17 Multivitamin with Iron 1 each PO DAILY 06/16/17 06/23/17 [Multivitamins with Iron] Nateglinide 2 tab PO ACD 06/16/17 06/23/17 Ringwood-3S/Dha/Epa/Fish Oil [Fish 2 cap PO BID 06/16/17 06/23/17 Oil Ringwood-3 Softgel] Pregabalin [Lyrica] 50 mg PO TID 06/16/17 06/23/17 Rosuvastatin Calcium [Crestor] 10 mg PO DAILY 06/16/17 06/23/17 Tamsulosin HCl [Flomax] 0.4 mg PO DAILY 06/16/17 06/23/17 Review of Systems - Physician Review All systems were reviewed & negative as marked: Yes - Review of Systems Constitutional: Normal. absent: Fevers Eyes: Normal ENT: Normal Respiratory: SOB Cardiovascular: Chest Pain Gastrointestinal: Normal. absent: Abdominal Pain, Diarrhea, Nausea, Vomiting Genitourinary Male: Normal Musculoskeletal: Normal Skin: Normal Neurological: Normal Endocrine: Normal Hemo/Lymphatic: Normal Psychiatric: Normal Physical Exam Vital Signs Reviewed: Yes Vital Signs Pulse Resp BP Pulse Ox 06/23/17 23:09 20 06/23/17 20:50 53 L 18 138/47 L 100 Temperature: Afebrile Blood Pressure: Normal Pulse: Regular Respiratory Rate: Tachypneic Appearance: Positive for: Well-Appearing, Non-Toxic, Comfortable Pain Distress: None Mental Status: Positive for: Alert and Oriented X 3 - Systems Exam Head: Present: Atraumatic, Normocephalic Pupils: Present: PERRL Extroacular Muscles: Present: EOMI Conjunctiva: Present: Normal Mouth: Present: Moist Mucous Membranes Neck: Present: Normal Range of Motion Respiratory/Chest: Present: Good Air Exchange, Tachypneic (mild), Other ( crackles bilaterally.). No: Respiratory Distress, Accessory Muscle Use Cardiovascular: Present: Regular Rate and Rhythm, Normal S1, S2. No: Murmurs Abdomen: No: Tenderness, Distention, Peritoneal Signs Back: Present: Normal Inspection Upper Extremity: Present: Normal Inspection. No: Cyanosis, Edema Lower Extremity: Present: Normal Inspection. No: Edema Neurological: Present: GCS=15, CN II-XII Intact, Speech Normal Skin: Present: Warm, Dry, Normal Color. No: Rashes Psychiatric: Present: Alert, Oriented x 3, Normal Insight, Normal Concentration Medical Decision Making ED Course and Treatment: 06/23/17 20:38 Impression: 52 year old male presents to the Emergency department for chest pain and shortness of breath. Plan: -- EKG -- Labs -- Chest X-ray -- Urinalysis -- Reassess and disposition Progress Notes: 06/23/17 22:02: Dr. Malcolm has been paged Awaiting call back. 06/23/17 22:08: Case discussed with Dr. Malcolm, the patient's linotypist. States that patient will be dialyzed in the morning. 06/24/17 02:32 - Lab Interpretations Lab Results: 06/23/17 20:47 06/23/17 20:47 Lab Results 06/23/17 20:47: Sodium 136, Potassium 5.5 H, Chloride 95 L, Carbon Dioxide 26, Anion Gap 21 H, BUN 71 H, Creatinine 10.9 H*, Est GFR ( Amer) 6, Est GFR (Non-Af Amer) 5, Random Glucose 125 H, Calcium 9.7, Magnesium 2.5 H, Total Bilirubin 1.0, AST 423 H D, ALT 224 H, Alkaline Phosphatase 52, Lactate Dehydrogenase 1523 H, Total Creatine Kinase 253 H, CK-MB (CK-2) 5.4 H, CK-MB (CK -2) % 2.1 L, Troponin I 0.05 D, NT-Pro-B Natriuret Pep 94476 H, Total Protein 8.6 H, Albumin 4.2, Globulin 4.5, Albumin/Globulin Ratio 0.9 L 06/23/17 20:47: PT 18.8 H, INR 1.63 H, APTT 28.3 06/23/17 20:47: WBC 7.5 D, RBC 3.40 L, Hgb 10.1 L, Hct 31.5 L, MCV 92.6 D, MCH 29.7, MCHC 32.1, RDW 16.1 H, Plt Count 144, MPV 13.1 H, Gran % 71.7 H, Lymph % (Auto) 18.4 L, Wallace % (Auto) 8.6 H, Eos % (Auto) 0.9 L, Baso % (Auto) 0.4, Gran # 5.39, Lymph # (Auto) 1.4, Wallace # (Auto) 0.7 H, Eos # (Auto) 0.1, Baso # (Auto) 0.03 - RAD Interpretation Radiology Orders: 06/23/17 20:24 CHEST PORTABLE [RAD] Stat - Medication Orders Current Medication Orders: Albuterol/Ipratropium (Duoneb 3 Mg/0.5 Mg (3 Ml) Ud) 3 ml IH [id number] [facility] Last Admin: 06/26/17 07:26 Dose: 3 ml Aspirin (Ecotrin) 81 mg PO DAILY [facility] Last Admin: 06/25/17 10:04 Dose: 81 mg Atorvastatin Calcium (Lipitor) 10 mg PO DIN [facility] Last Admin: 06/25/17 18:24 Dose: 10 mg Calcium Acetate (Phoslo) 1,334 mg PO TID [facility] Last Admin: 06/25/17 18:14 Dose: 1,334 mg Ergocalciferol (Drisdol 50,000 Intl Units Cap) 1 cap PO SAT [facility] Last Admin: 06/24/17 10:22 Dose: 1 cap Fenofibrate (Tricor) 145 mg PO DAILY [facility] Furosemide (Lasix) 40 mg PO BID [facility] Last Admin: 06/25/17 18:24 Dose: 40 mg MAR Blood Pressure Document 06/25/17 18:24 JUR (Rec: 06/25/17 18:24 JUR ADMIN-PC) Blood Pressure Blood Pressure (100/60-150/90) 122/53 Gabapentin (Neurontin) 300 mg PO DAILY [facility] PRN Reason: Protocol Last Admin: 06/25/17 10:14 Dose: Not Given Non-Admin Reason: Patient Refused Comments: pt takes only at night Home Med (Home Med) 1 unit TOP DAILY [facility] Last Admin: 06/25/17 10:17 Dose: Home Med (Home Med) 1 unit INH BID [facility] Last Admin: 06/25/17 17:31 Dose: Hydralazine HCl (Apresoline) 20 mg PO BID [facility] Last Admin: 06/25/17 17:31 Dose: Not Given Non-Admin Reason: BP Parameters Not Met MAR Pulse and Blood Pressure Document 06/25/17 17:31 JUR (Rec: 06/25/17 17:31 JUR [id number]) Blood Pressure Blood Pressure (100/60-150/90) 122/53 Dopamine HCl/Dextrose (Dopamine 400mg/250ml D5w) 400 mg in 250 mls @ 17.503 mls /hr IV .[id number] PRN; Protocol; 5 MCG/KG/MIN PRN Reason: TITRATE PER MD ORDER Last Titration: 06/26/17 01:00 Dose: 7 mcg/kg/min, 24.504 mls/hr Titration Intervention Document 06/26/17 01:00 MHA (Rec: 06/26/17 05:32 MHA [id number]) Titration Intake Titration Intake 84 Cumulative Intake 84 Cumulative Intake (Rx) 584 Waste Amount 0 Container Volume 166 Titration Dosing Titration Dose 7 IV Rate 24.504 Intake/Decrease Decreased Cumulative Dose 934.4 Insulin Human NPH (Humulin N) 70 units SC ACD [facility] Last Admin: 06/25/17 17:48 Dose: 70 units MAR Blood Glucose Document 06/25/17 17:48 JUR (Rec: 06/25/17 17:49 JUR ADMIN-PC) Blood Glucose Finger Stick Blood Glucose (70-120) 318 Subcutaneous Administrations Document 06/25/17 17:48 JUR (Rec: 06/25/17 17:49 JUR ADMIN-PC) Injection Site MAR Injection Site Right Arm Charges for Administration # of Subcutaneous Administrations 1 Insulin Human NPH (Humulin N) 80 units SC ACB [facility] Last Admin: 06/25/17 07:30 Dose: Not Given Non-Admin Reason: Patient Refused MAR Blood Glucose Document 06/25/17 07:30 JUR (Rec: 06/25/17 09:40 JUR ADMIN-PC) Blood Glucose Finger Stick Blood Glucose (70-120) 126 Insulin Human Regular (Humulin R High) 0 units SC ACHS [facility] PRN Reason: Protocol Last Admin: 06/25/17 22:11 Dose: 4 units MAR Blood Glucose Document 06/25/17 22:11 MHA (Rec: 06/25/17 22:12 MHA [id number]) Blood Glucose Finger Stick Blood Glucose (70-120) 448 Subcutaneous Administrations Document 06/25/17 22:11 MHA (Rec: 06/25/17 22:12 MHA [id number]) Charges for Administration # of Subcutaneous Administrations 1 Latanoprost (Xalatan Opht) 1 ml OU HS [facility] Last Admin: 06/25/17 21:27 Dose: 1 ml Loratadine (Claritin) 10 mg PO HS [facility] Last Admin: 06/25/17 21:26 Dose: 10 mg Metronidazole (Metrogel Cream) 1 gm TOP DAILY [facility] Last Admin: 06/25/17 17:35 Dose: Montelukast Sodium (Singulair) 10 mg PO HS [facility] Last Admin: 06/25/17 21:27 Dose: 10 mg Nateglinide (Starlix) 120 mg PO ACD [facility] Last Admin: 06/24/17 19:11 Dose: 120 mg Nateglinide (Starlix) 60 mg PO ACL [facility] Last Admin: 06/25/17 17:33 Dose: Not Given Non-Admin Reason: Nausea [id number] Ethyl Esters (Lovaza) 2 gm PO BID [facility] Last Admin: 06/25/17 18:24 Dose: 1 gm Ondansetron HCl (Zofran Inj) 4 mg IVP Q4H PRN PRN Reason: Nausea/Vomiting Last Admin: 06/24/17 20:18 Dose: 4 mg IVP Administration Document 06/24/17 20:18 B.P (Rec: 06/24/17 20:18 B.P ADMIN-PC) Charges for Administration # of IVP Administrations 1 Pantoprazole Sodium (Protonix Ec Tab) 40 mg PO DAILY [facility] Pregabalin (Lyrica) 50 mg PO DAILY [facility] Last Admin: 06/25/17 10:04 Dose: Not Given Non-Admin Reason: Patient Refused Sildenafil Citrate (Revatio) 20 mg PO BID [facility] Last Admin: 06/25/17 10:07 Dose: 20 mg Tamsulosin HCl (Flomax) 0.4 mg PO DAILY [facility] Last Admin: 06/25/17 10:04 Dose: 0.4 mg Ticagrelor (Brilinta) 90 mg PO BID [facility] Last Admin: 06/25/17 18:23 Dose: 90 mg Vitamin B Complex/Vit C/Folic Acid (Nephro-Eva) 1 tab PO 0800 [facility] Last Admin: 06/25/17 09:59 Dose: 1 tab Zolpidem Tartrate (Ambien) 5 mg PO HS PRN; Protocol PRN Reason: Insomnia Last Admin: 06/25/17 22:10 Dose: 5 mg Behavioural Document 06/25/17 22:10 MHA (Rec: 06/25/17 22:10 [id number]) Maintenance Maintenance Dose Yes Nonmedicinal Nonmedicinal Interventions Activity Behavior Behavior for Medication: Insomnia Re-Assess: Reassess Psych Meds Document 06/25/17 23:10 MHA (Rec: 06/26/17 06:16 MHA [id number]) Reassess Psych Med Effective Discontinued Medications Aspirin (Aspirin) 325 mg PO STAT [facility]A Stop: 06/23/17 21:04 Last Admin: 06/23/17 21:05 Dose: 325 mg Atorvastatin Calcium (Lipitor) 10 mg PO HS [facility] Last Admin: 06/24/17 22:04 Dose: 10 mg Atropine Sulfate (Atropine) 1 mg IVP STAT STA Stop: 06/24/17 14:20 Atropine Sulfate (Atropine) 1 mg IVP STAT STA Stop: 06/24/17 14:25 Atropine Sulfate (Atropine) 1 mg IVP STAT STA Stop: 06/24/17 14:29 Clopidogrel Bisulfate (Plavix) 75 mg PO DAILY [facility] Last Admin: 06/25/17 10:04 Dose: 75 mg Fenofibrate (Tricor) 160 mg PO DAILY [facility] Last Admin: 06/25/17 09:59 Dose: 145 mg Gabapentin (Neurontin) 300 mg PO STAT [facility] PRN Reason: Protocol Stop: 06/23/17 21:46 Last Admin: 06/23/17 22:02 Dose: 300 mg Re-Assess: Reassess Psych Meds Document 06/23/17 23:02 ELLA (Rec: 06/23/17 23:49 SERENAS [id number]) Reassess Psych Med Effective Gabapentin (Neurontin) 300 mg PO TID [facility] PRN Reason: Protocol Last Admin: 06/24/17 13:08 Dose: Not Given Non-Admin Reason: Patient in Dialysis Behavioural Document 06/24/17 13:08 CRYSTAL (Rec: 06/24/17 13:08 CRYSTAL [id number]) Maintenance Maintenance Dose Yes Gabapentin (Neurontin) 300 mg PO ONCE ONE Stop: 06/24/17 17:31 Last Admin: 06/24/17 17:35 Dose: 300 mg Behavioural Document 06/24/17 17:35 MDU (Rec: 06/24/17 20:08 MDU [facility]) Maintenance Maintenance Dose Yes Nonmedicinal Nonmedicinal Interventions Redirect Therapeutic Communication Activity Behavior Behavior for Medication: Anxiety Continuous pacing/restlessness Hydralazine HCl (Apresoline) 20 mg PO BID [facility] Last Admin: 06/24/17 10:21 Dose: 20 mg MAR Pulse and Blood Pressure Document 06/24/17 10:21 KE (Rec: 06/24/17 10:22 KE [id number]) Blood Pressure Blood Pressure (100/60-150/90) 130/47 Ibuprofen (Motrin Tab) 600 mg PO Q6H [facility] Stop: 06/25/17 23:59 Last Admin: 06/25/17 22:10 Dose: 600 mg MAR Pain/Vitals Document 06/25/17 22:10 MHA (Rec: 06/25/17 22:11 MHA [id number]) Pain Reassessment Is This A Pain ReAssessment? No Sleep Is patient sleeping during reassessment? No Presence of Pain Presence of Pain Yes Pain Scale Used Pain Scale Used Numeric Location Pain Location Body Site Back Description Intermittent Intensity 5 Scale Used Numeric Pain Behavior Irritability Aggravating Factors ADL's Alleviating Factors Medication Re-Assess: MAR Pain/Vitals Document 06/25/17 23:10 MHA (Rec: 06/26/17 04:36 A [id number]) Pain Reassessment Is This A Pain ReAssessment? Yes Sleep Is patient sleeping during reassessment? Yes Insulin Human Regular (Humulin R Low) 0 units SC [facility] PRN Reason: Protocol Last Admin: 06/25/17 16:30 Dose: Not Given Non-Admin Reason: Patient Refused Lorazepam (Ativan) 0.5 mg IVP ONCE ONE PRN Reason: Protocol Stop: 06/23/17 23:00 Last Admin: 06/23/17 23:10 Dose: 0.5 mg IVP Administration Document 06/23/17 23:10 AD (Rec: 06/23/17 23:20 AD [id number]) Charges for Administration # of IVP Administrations 1 Re-Assess: Reassess Psych Meds Document 06/23/17 23:40 KOPPS (Rec: 06/23/17 23:49 KOPPS [id number]) Reassess Psych Med Effective Metoprolol Succinate (Toprol Xl) 50 mg PO DAILY [facility] Last Admin: 06/24/17 10:20 Dose: 50 mg Comments: HR:55 MAR Pulse and Blood Pressure Document 06/24/17 10:20 KE (Rec: 06/24/17 10:21 [id number]) Blood Pressure Blood Pressure (100/60-150/90) 130/47 Multivitamins (Thera Tab) 1 tab PO DAILY [facility] Last Admin: 06/25/17 10:07 Dose: Pantoprazole Sodium (Protonix Ec Tab) 1 mg PO DAILY [facility] Last Admin: 06/24/17 10:22 Dose: 1 mg Pregabalin (Lyrica) 50 mg PO TID [facility] Last Admin: 06/24/17 13:08 Dose: Not Given Non-Admin Reason: Patient in Dialysis Pregabalin (Lyrica) 50 mg PO ONCE ONE Stop: 06/24/17 17:31 Last Admin: 06/24/17 17:35 Dose: 50 mg Sildenafil Citrate (Revatio) 20 mg PO BID [facility] Sodium Polystyrene Sulfonate (Kayexalate Susp) 30 gm PO STAT [facility] Stop: 06/23/17 22:10 Last Admin: 06/23/17 22:19 Dose: 30 gm Ticagrelor (Brilinta) 180 mg PO STAT [facility] Stop: 06/25/17 10:29 Last Admin: 06/25/17 11:11 Dose: 180 mg - Elizabethibe Statement The provider has reviewed the documentation as recorded by the Elizabethibclive Cooley. All medical record entries made by the Elizabethibclive were at my direction and personally dictated by me. I have reviewed the chart and agree that the record accurately reflects my personal performance of the history, physical exam, medical decision making, and the department course for this patient. I have also personally directed, reviewed, and agree with the discharge instructions and disposition. Disposition/Present on Arrival - Present on Arrival Any Indicators Present on Arrival: No History of DVT/PE: No History of Uncontrolled Diabetes: Yes Urinary Catheter: No History of Decub. Ulcer: Yes History Surgical Site Infection Following: None - Disposition Have Diagnosis and Disposition been Completed?: Yes Diagnosis: Renal failure, Chest pain Disposition: HOSPITALIZED Disposition Time: 11:00 Patient Problems: Current Active Problems Problem Status Onset Chest pain Acute Renal failure Acute Condition: FAIR
[2017-06-23 20:56] LABS: BASO # 0.03 K/mm3 (0.0-2.0); BASO % 0.4 % (0.0-3.0); EOS # 0.1 (0.0-0.7); EOS % 0.9 % (1.5-5.0); GRAN # 5.39 (1.4-6.5); GRAN % 71.7 % (50.0-68.0); HEMOGLOBIN 10.1 g/dL (14.0-18.0); LYMPH # 1.4 (1.2-3.4); LYMPH % 18.4 % (22.0-35.0); MEAN CELL VOLUME 92.6 fl (80.0-105.0); MEAN CORPUSCULAR HEMOGLOBIN 29.7 pg (25.0-35.0); MEAN CORPUSCULAR HGB CONC 32.1 g/dl (31.0-37.0); MEAN PLATELET VOLUME 13.1 fl (7.0-11.0); MONO # 0.7 (0.1-0.6); MONO % 8.6 % (1.0-6.0); RBC 3.4 10^6/uL (3.5-6.1); RED CELL DISTRIBUTION WIDTH 16.1 % (11.5-14.5); WHITE BLOOD COUNT 7.5 10^3/ul (4.5-11.0)
[2017-06-23 21:06] LABS: INR 1.63 (0.93-1.08); PARTIAL THROMBOPLASTIN TIME 28.3 Seconds (25.1-36.5); PROTHROMBIN TIME 18.8 SECONDS (9.4-12.5)
[2017-06-23 21:16] LABS: ALB/GLOB RATIO 0.9 (1.1-1.8); ALBUMIN 4.2 g/dL (3.0-4.8); CALCIUM 9.7 mg/dL (8.4-10.5)
[2017-06-23 21:19] LABS: TROPONIN I 0.05 ng/mL
[2017-06-23 21:23] LABS: CK MB% 2.1 % (2.5-3.0); CK-MB 5.4 ng/mL (0.0-3.6)
[2017-06-23] MEDS ORDERED: Sod Polystyrene Sulf 15 gm/60 ml Susp PO STA (22:09)
[2017-06-24 00:24] VITALS: BMI 33.2
--- NOTE | 2017-06-24 08:41 | RAD ---
HISTORY: sob/cp COMPARISON: 06/16/2017 FINDINGS: LUNGS: No active pulmonary disease. PLEURA: No significant pleural effusion identified, no pneumothorax apparent. CARDIOVASCULAR: Moderate cardiomegaly. Mild vascular congestion OSSEOUS STRUCTURES: No significant abnormalities. VISUALIZED UPPER ABDOMEN: Normal. OTHER FINDINGS: None. IMPRESSION: Moderate cardiomegaly. Mild vascular congestion
[2017-06-24] MEDS ORDERED: Metoprolol Succinate 50 mg XL Tab PO SCH (08:45)
[2017-06-24] MEDS ORDERED: Ergocalciferol 50,000 Intl Units Cap PO SCH (10:00)
[2017-06-24] MEDS ORDERED: Pantoprazole 40 mg EC Tab PO SCH (10:00)
[2017-06-24] MEDS: VOLTAREN GEL TOP SCH (10:04)
[2017-06-24] MEDS: Insulin Human NPH 1 UNITS/0.01 ML SC SCH ×2 (10:20→18:00)
[2017-06-24] MEDS: Multivitamin Therapeutic Tab PO SCH (10:21)
[2017-06-24] MEDS: Omega-3-Acid Ethyl Esters 1 GM Cap PO SCH ×2 (10:21→19:08)
[2017-06-24] MEDS: MetroNIDAZOLE 0.75% Cream(45 gm) TOP SCH (10:23)
[2017-06-24 11:17] LABS: BASO # 0.04 K/mm3 (0.0-2.0); BASO % 0.4 % (0.0-3.0); EOS # 0.1 (0.0-0.7); EOS % 1.1 % (1.5-5.0); GRAN # 6.61 (1.4-6.5); GRAN % 72.3 % (50.0-68.0); HEMOGLOBIN 10.2 g/dL (14.0-18.0); LYMPH # 1.4 (1.2-3.4); LYMPH % 15.7 % (22.0-35.0); MEAN CELL VOLUME 91.9 fl (80.0-105.0); MEAN CORPUSCULAR HEMOGLOBIN 29.5 pg (25.0-35.0); MEAN CORPUSCULAR HGB CONC 32.1 g/dl (31.0-37.0); MEAN PLATELET VOLUME 13.3 fl (7.0-11.0); MONO % 10.5 % (1.0-6.0); RBC 3.46 10^6/uL (3.5-6.1); RED CELL DISTRIBUTION WIDTH 16.1 % (11.5-14.5); WHITE BLOOD COUNT 9.2 10^3/ul (4.5-11.0)
[2017-06-24 11:41] LABS: ALBUMIN 3.9 g/dL (3.0-4.8); ALT/SGPT 468 U/L (7-56); AST/SGOT > 750 U/L (17-59); BLOOD UREA NITROGEN 62 mg/dL (7-21); CALCIUM 9.2 mg/dL (8.4-10.5); GFR AFRICAN-AMERICAN 6; GFR NON-AFRICAN AMERICAN 5
[2017-06-24] MEDS: Insulin Reg-LOW-Coverage SC SCH ×3 (11:45→22:07)
[2017-06-24 14:32] LABS: BASO # 0.02 K/mm3 (0.0-2.0); BASO % 0.2 % (0.0-3.0); EOS # 0.1 (0.0-0.7); EOS % 0.7 % (1.5-5.0); GRAN # 6.33 (1.4-6.5); GRAN % 75.3 % (50.0-68.0); HEMOGLOBIN 9.2 g/dL (14.0-18.0); LYMPH # 1.3 (1.2-3.4); LYMPH % 15.1 % (22.0-35.0); MEAN CELL VOLUME 90.9 fl (80.0-105.0); MEAN CORPUSCULAR HEMOGLOBIN 29.8 pg (25.0-35.0); MEAN CORPUSCULAR HGB CONC 32.7 g/dl (31.0-37.0); MEAN PLATELET VOLUME 13.3 fl (7.0-11.0); MONO # 0.7 (0.1-0.6); MONO % 8.7 % (1.0-6.0); RBC 3.09 10^6/uL (3.5-6.1); RED CELL DISTRIBUTION WIDTH 16.1 % (11.5-14.5); WHITE BLOOD COUNT 8.4 10^3/ul (4.5-11.0)
[2017-06-24 14:44] LABS: ALB/GLOB RATIO 0.9 (1.1-1.8); ALBUMIN 3.2 g/dL (3.0-4.8); CALCIUM 8.5 mg/dL (8.4-10.5)
[2017-06-24 14:50] LABS: TROPONIN I 0.06 ng/mL
--- NOTE | 2017-06-24 15:09 | PCM.RRT ---
<Elsa Weinstein - Last Filed: 06/24/17 16:36> CUTTER TENDER Nurse Assessment - Situation Date: 06/24/17 Time CUTTER TENDER was called: 13:58 CUTTER TENDER Location:: Renal Dialysis CUTTER TENDER Reason for Call: Hypotension CUTTER TENDER Called By: RN I.Reason for CUTTER TENDER - A) Acute Change in Patient: (Select all that apply): Acute change in heart rate less than 50 or greater than 120, Acute change in SBP below - Neurological Status (Select all that apply): Responsive, Lethargic - Respiratory Oxygen Delivery Method: BiPAP @% - Head Head Exam: ATRAUMATIC, NORMOCEPHALIC - Eyes Eye Exam: EOMI - Respiratory Exam Respiratory Exam: Clear to Ausculation Bilateral, NORMAL BREATHING PATTERN. absent: Rales, Rhonchi, Wheezes, Respiratory Distress, Stridor - Cardiovascular Exam Cardiovascular Exam: Bradycardia, REGULAR RHYTHM, +S1, +S2. absent: Tachycardia , Murmur - GI/Abdominal Exam GI & Abdominal Exam: Distended, Soft, Normal Bowel Sounds. absent: Firm - Neurological Exam Neurological Exam: Awake. absent: Oriented x3 - Extremities Exam Extremities Exam: Normal Inspection. absent: Pedal Edema Plan - Assessment of Findings&Treatment Plan 52 yo male with PMH of ESRD on ED admitted to hospital for chest pain. While in dialysis patient became hypotensive. Initially patient was tachycardic with hypotension. He received IVF. Blood glucose was checked and was within normal limits. His BP improved however he became bradycardic and was found to be having difficulty breathing. He was placed on oxygen mask and tele monitoring. He was given 2 1 mg atropine for bradycardia and placed on 5 mcg/kg dopamine drip. Patient became more responsive. ICU physician was called. Patient was given another 1mg atropine. Patient medications and AM labs were reviewed. CBC, CMP, trop was sent. Patient was placed on bipap per pulmonary. Patient vitals stabilized on dopamine drip and bipap, patient was responsive and able to follow simple commends. PMD and surveillance systems analyst were notified. Family was called and notified. <Derrek Sofia - Last Filed: 06/25/17 14:12> Attending/Attestation - Attestation I have personally seen and examined this patient.: Yes I have fully participated in the care of the patient.: Yes I have reviewed all pertinent clinical information, including history, physical exam and plan: Yes Notes (Text): 06/25/17 14:09 Attending note; Patient seen and examined during rapid response in dialysis unit. Patient had hypotension and bradycardia. Dialysis was stopped .IV fluid was given. Hypotension resolved. Patient was still bradycardic. IV atropine given. Patient apparently got beta valerie this morning. Started on IV dopamine drip. Case discussed with surveillance systems analyst in detail. Electrolytes are normal. Dr. Escalera by the bedside. Patient is placed on BiPAP. Saturationis 98%. Case discussed with PMD Dr. Kessler in detail. Patient will be transferred to ICU. Case discussed with ICU attending in detail. Further plan per PMD.
[2017-06-24] MEDS: DOPamine 400mg/250ml D5W 400 MG/250 ML BAG IV PRN (15:50)
--- NOTE | 2017-06-24 16:08 | CARD ---
APPROVED REPORT EKG Measurement Heart [id number] <Conclusion> Junctional rhythm Left axis deviation Abnormal ECG
[2017-06-24] MEDS ORDERED: Sildenafil 20 MG TAB PO SCH (18:00)
[2017-06-24] MEDS: Sildenafil 20 MG TAB PO SCH (19:08)
[2017-06-24] MEDS: Albuterol-Ipratrop 3 mg / 0.5 (3 ml) UD IH SCH (20:37)
[2017-06-24] MEDS: Latanoprost 2.5 ml Opht Soln OU SCH (22:05)
[2017-06-25] MEDS: Albuterol-Ipratrop 3 mg / 0.5 (3 ml) UD IH SCH ×5 (01:56→19:06)
--- NOTE | 2017-06-25 03:29 | CON ---
DATE: 06/24/2017 INSTRUCTOR SUB[employer] COSMETOLOGY CONSULTATION LOCATION: [facility]. REQUESTING PHYSICIAN: Diana Kessler MD. CHIEF COMPLAINT: Patient had episode of bradycardia and hypotension while getting dialysis. HISTORY OF PRESENT ILLNESS: Mr. Berger is a 52-year-old male with a history of end-stage renal disease, coronary artery disease status post stent and cardiomyopathy, pulmonary edema, diabetes, hyperlipidemia, hypertension, COPD, obstructive sleep apnea, anemia, TIA, liver disease, pancreatitis, and gout. The patient was admitted on 06/23/2017 with chest pain and shortness of breath. Patient was found to have pulmonary edema and this morning was in dialysis when rapid response was called for bradycardia and hypotension. The patient's heart rate was less than 30. He was transferred to the emergency room where he was given two amps of atropine and started on dopamine and at this time his heart rate is 66. The patient initially was unresponsive during the episodes of bradycardia and hypotension, but at this time is responsive, but slightly lethargic and hemodynamically stable. He has been admitted to the intensive care unit and Pulmonary and Cardiology has been consulted. PAST MEDICAL HISTORY: As above. ALLERGIES: HE HAS ALLERGIES TO NOVOLOG, INSULIN, MOXIFLOXACIN, AND PENICILLIN. MEDICATIONS: Can be evaluated as per the nurse's intake form. SOCIAL HISTORY: No substance abuse. No alcohol abuse and the patient never smoked. FAMILY HISTORY: Noncontributory. REVIEW OF SYSTEMS: CONSTITUTIONAL: All negative. HEENT: All negative. RESPIRATORY: Patient did have some issues with shortness of breath. CARDIOVASCULAR: Patient had bradycardia and was initially admitted for chest pain. GASTROINTESTINAL: All negative. GENITOURINARY: All negative. MUSCULOSKELETAL: All negative. NEUROPSYCHIATRIC: Patient, at this time, is slightly lethargic, but is moving all extremities. ENDOCRINE: All negative. HEMATOLOGIC: Negative. IMMUNOLOGIC: Negative. INTEGRITY: All negative. NEUROPSYCHIATRIC: As above. PHYSICAL EXAMINATION: VITAL SIGNS: Temperature is 97.8, his pulse is 59, respirations of 20, and BP is 129/90. Patient is on BiPAP and O2 support at this time. Chest x-ray reveals cardiomegaly and mild pulmonary edema. IMPRESSION: This patient has episode of bradycardia and hypotension with respiratory insufficiency. He has a history of coronary artery disease with stents placed as well as cardiomyopathy and diabetes, hyperlipidemia, chronic obstructive pulmonary disease, obstructive sleep apnea, hypertension, anemia, transient ischemic attack, liver disease, pancreatitis, and gout. PLAN: As far as our plan, we will continue with dopamine IV. We will continue to monitor closely in the ICU. Patient has Cardiology as well as Pulmonary consult and patient will continue with BiPAP support and O2. We will follow his laboratories closely and correct as needed. Patient also is being followed by Renal. We will continue his Protonix, his Singulair, his Revatio as well as his Lipitor. The patient will get chest x-ray and arterial blood gas in the morning and we will follow closely and treat aggressively along with the other consultants and the primary care doctor. Robby Tate MD
--- NOTE | 2017-06-25 04:19 | CON ---
DATE: 06/24/2017 PULMONARY CRITICAL CARE CONSULTATION REFERRING PHYSICIAN: Diana Kessler MD REASON FOR CONSULTATION: Status post cardiopulmonary arrest, has a chronic lung disease, sleep apnea syndrome. HISTORY OF PRESENT ILLNESS: This is a 52-year-old gentleman well known to me from the office and previous admission. As a matter of fact, he was due to see me in the office this morning. Apparently, he was not feeling well yesterday, has skipped his dialysis, came to emergency room and was admitted to Telemetry. During his dialysis this morning, he became bradycardiac, I believe he lost his pulse and hypotensive, rapid response was called. He was taken to ER area, atropine was given, dopamine was started. Dr. Sofia, who was running the rapid response, spoke to Dr. Erickson from Cardiology; patient known to Dr. Erickson. He had similar cardiac episode in last admission, but recovered without any issue. So, at my arrival, patient was lethargic, arousable, follows simple commands. His heart rate still in mid 30s and low 40s. Another dose of atropine was given with good success and the heart rate came between 50 and 60s, his blood pressure was 110/60. He was arousable on nonrebreather mask, was advised to place some noninvasive ventilation with history of asthma and CO2 retention and hypoventilation syndrome. I also spoke to Dr. Robby Tate, who is an health record technician, to transfer the patient to ICU. Presently, he was waiting in the ER under the supervision of Dr. Sofia waiting to go to Intensive Care Unit. He had no chest pain, no vomiting, no hematuria, no diarrhea, no leg swelling reported. PAST MEDICAL HISTORY: Coronary artery disease, recently had 2 new stents placed in; chronic obstructive lung disease; obstructive sleep apnea syndrome; renal failure, dialysis dependent; diabetes; hypertension. ALLERGIES: TO NOVOLOG INSULIN, DEVELOPED ITCHING; ALSO ALLERGIC TO MOXIFLOXACIN, DEVELOPED ITCHING; AND ALSO PENICILLIN ALLERGY. FAMILY HISTORY: Positive for diabetes, hypertension, renal failure. MEDICATIONS: He is on Ambien 5 mg at bedtime p.r.n. for insomnia, hydralazine 20 mg twice a day, Claritin 10 mg at bedtime. He is started on dopamine for hypotension and bradycardia, vitamin D is 50,000 units, Ecotrin 81 mg daily, Flomax 0.4 mg daily. He is on insulin coverage, Lasix 40 mg twice a day, Lipitor 10 mg at bedtime, omega-3 at 2 g twice a day, Lyrica 50 mg daily, metronidazole 1 g daily, vitamin B and C complex daily, Neurontin 300 mg daily, PhosLo three times a day, Plavix 75 mg daily, Protonix 40 mg daily, Revatio 20 mg twice a day, Singulair 10 mg daily, Starlix 60 mg a.c.l, multivitamins, Tricor 160 mg daily, Zofran p.r.n. basis. REVIEW OF SYSTEMS: Feel lethargic, arousable. No headache, no rhinitis, no hemoptysis, no hematemesis, no hematuria, no diarrhea. Just received 3 doses of atropine and also on dopamine. PHYSICAL EXAMINATION: GENERAL: Lethargic, arousable. VITAL SIGNS: Temperature is 98, heart rate was 50 to 60 after a few doses of atropine, blood pressure 113/87, pulse ox 100% on nonrebreather. HEENT: Moist mucous membranes. Crowded airway. NECK: Short thick neck. LUNGS: Has fair airflow with a few rhonchi. HEART: S1 and S2. ABDOMEN: Soft, nontender, no organomegaly. EXTREMITIES: No edema. NEUROLOGICAL: Lethargic, arousable, follow simple commands. LABORATORY DATA: Shows hemoglobin 9.2, hematocrit 28.1, WBC 8.4, platelets 126. INR 1.63, PTT 28. Sodium 139, potassium 3.8, chloride 99, bicarbonate 31, BUN 25, creatinine 4.3, glucose 116, calcium is 8.5. AST is 1129, ALT is 493, alk phos is 41, albumin is 3.2. Chest x-ray done this morning shows moderate cardiomegaly, mild vascular congestion. IMPRESSION AND PLAN: Status post cardiopulmonary arrest (?), became bradycardiac; coronary artery disease status post coronary stents; myocardial infarction; chronic obstructive lung disease; obstructive sleep apnea syndrome; renal failure, dialysis dependent; diabetes. After atropine and dopamine, patient has done well. He was switched to BiPAP / with 40% oxygen, pulse ox [address] to [address] Sofia, who was running rapid response and also spoke to Dr. Robby Tate, who is health record technician today. Dr. Dre from Cardiology will be coming to see the patient. I think we need to get rid of his beta-valerie. Revatio is added. We will check if we can take it off or no until stabilize the patient. Continue inhaled bronchodilator, continue BiPAP. Solu-Cortef 100 mg twice a day. Follow up arterial blood gas, chest x-ray, complete blood counts, comprehensive metabolic panel in the morning. Cardiac enzymes. Thank you and we will follow with you. Jarred Escalera MD
[2017-06-25] MEDS: DOPamine 400mg/250ml D5W 400 MG/250 ML BAG IV PRN ×2 (05:26→22:22)
[2017-06-25 06:19] LABS: BASO # 0.04 K/mm3 (0.0-2.0); BASO % 0.4 % (0.0-3.0); EOS # 0.1 (0.0-0.7); GRAN # 6.89 (1.4-6.5); GRAN % 75.5 % (50.0-68.0); HEMOGLOBIN 10.7 g/dL (14.0-18.0); LYMPH # 1.4 (1.2-3.4); LYMPH % 14.8 % (22.0-35.0); MEAN CELL VOLUME 94.5 fl (80.0-105.0); MEAN CORPUSCULAR HEMOGLOBIN 29.4 pg (25.0-35.0); MEAN CORPUSCULAR HGB CONC 31.1 g/dl (31.0-37.0); MONO # 0.8 (0.1-0.6); MONO % 8.3 % (1.0-6.0); RBC 3.64 10^6/uL (3.5-6.1); RED CELL DISTRIBUTION WIDTH 16.2 % (11.5-14.5); WHITE BLOOD COUNT 9.1 10^3/ul (4.5-11.0)
[2017-06-25 06:53] LABS: CALCIUM 9.4 mg/dL (8.4-10.5)
[2017-06-25] MEDS: Insulin Human NPH 1 UNITS/0.01 ML SC SCH ×2 (07:30→17:48)
[2017-06-25] MEDS: Insulin Reg-LOW-Coverage SC SCH ×3 (07:30→16:30)
--- NOTE | 2017-06-25 08:37 | HP ---
CHIEF COMPLAINT: Chest pain. HISTORY OF PRESENT ILLNESS: Mr. Jason Berger is a 52-year-old male with past medical history of COPD; GERD; dyspepsia; end-stage renal disease, on hemodialysis 3 times a week; insulin-dependent diabetes mellitus type 2; hypertension; cardiac catheterization and stent placement, came to the emergency department complaining of chest pain, shortness of breath, paroxysmal AFib for few days. Patient informs of missing dialysis today due to increased shortness of breath. Patient additionally informed a little urinary output. Patient denies any fever, chills, nausea, vomiting, diarrhea, abdominal pain or any other complaints. When patient was dialyzed, heart rate dropped, rapid response was called, after that patient was put on BiPAP and I saw patient in emergency room. The patient was supposed to go to the unit. PAST MEDICAL HISTORY: As above. Cardiac catheterization, congestive heart failure, hypertension, COPD, TIA, left eye corneal transplant, renal retinopathy, diabetic nephropathy, diabetic retinopathy, diabetic neuropathy, insulin-dependent diabetes mellitus type 2, anemia with history of blood transfusion, asthma, cholecystectomy, coronary stents x2. FAMILY HISTORY: Father and mother, noncontributory. HABITS: Never smoked, no drugs, no ethanol. ALLERGIES: PATIENT IS ALLERGIC WITH INSULIN ASPART, MOXIFLOXACIN, PENICILLIN. HOME MEDICATIONS: Reviewed by me. Calcium, Dexilant, Neurontin, insulin, Lasix, Starlix, Zyrtec, hydralazine, Flomax. REVIEW OF SYSTEMS: Patient was seen and examined on bedside in the emergency room by me. Was having BiPAP. No fever, no chills. No headache. No swelling of the leg. No dizziness. PHYSICAL EXAMINATION: VITAL SIGNS: Temperature 98.6, pulse 86, blood pressure 105/80, pulse oximetry 100. HEENT: Head: Normocephalic, atraumatic. Eyes: PERRLA. Extraocular muscles intact. Conjunctivae clear. Nose patent. Mucous membranes moist. NECK: Supple. No carotid bruit, JVD or thyromegaly. CHEST: Bilaterally symmetrical. HEART: S1 and S2 positive. LUNGS: Clear to auscultation. ABDOMEN: Soft. Bowel sounds present. No organomegaly. EXTREMITIES: No edema. No cyanosis. NEUROLOGIC: Patient is awake and alert. Moving all four extremities. Obeying simple commands. LABORATORY DATA: White blood cells 8.4, hemoglobin 9.2, hematocrit 28.1, platelets 126. Sodium 139, potassium 3.8, BUN 25, creatinine 4.3, on admission it was 11.1. Glucose 114. ASSESSMENT AND PLAN: Mr. Jason Berger is a 52-year-old male with anemia; renal insufficiency, on hemodialysis 3 times a week; insulin-dependent diabetes mellitus, uncontrolled; hyperphosphatemia; hypermagnesemia; abnormal liver function tests. Patient was getting dialysis. He missed his one dialysis. During dialysis, rapid response was called for hypotension. Heart rate was less than 50. Patient was resuscitated and transferred to the ER. Discussion done with Dr. Sofia. Initially, patient had tachycardia with hypotension. He received IV fluids. Blood glucose was checked and that was within normal limits. Blood pressure improved, however, he became bradycardic and was found to have difficulty of breathing. He was placed on oxygen mask and tele monitoring. Patient was given 25 mg of Atropine for bradycardia and placed on 5 mcg/kg dopamine drip. Patient became more responsive. ICU physician was called. Patient was given another 1 mg of Atropine. Patient's medications and a.m. labs were reviewed. Discussion done with staff. We will follow up. Diana Kessler MD
[2017-06-25] MEDS: Multivitamin Vitamin B Complex (Nephro-Vite) Tab PO SCH (09:59)
[2017-06-25] MEDS: Multivitamin Therapeutic Tab PO SCH (10:07)
[2017-06-25] MEDS: Sildenafil 20 MG TAB PO SCH (10:07)
[2017-06-25] MEDS: Omega-3-Acid Ethyl Esters 1 GM Cap PO SCH ×2 (10:12→18:24)
[2017-06-25] MEDS: VOLTAREN GEL TOP SCH (10:17)
--- NOTE | 2017-06-25 10:47 | PN ---
DATE: 06/25/2017 ACCOUNT TECHNICIAN NOTE SUBJECTIVE: The patient is resting in bed, awake and alert. No complaints of leg shaking today. He states that he feels much better, but continues to be on the dopamine, which is required for the bradycardia. The patient has no complaints of chest pain. No increased shortness of breath, cough, wheezing, chest congestion. No abdominal pain or diarrhea. PHYSICAL EXAMINATION VITAL SIGNS: Note that his pulse is of 54. The patient is afebrile and blood pressure is 115/47, respirations of 18. HEENT: Head is atraumatic, normocephalic. Eyes reactive to light. Ears, nose and throat seem to be within normal limits. NECK: Supple. No JVD. No thyroid enlargement or lymph nodes. HEART: Has regular rate and rhythm. Normal S1, S2. LUNGS: Reveal good breath sounds bilaterally. ABDOMEN: Soft. Decreased bowel sounds. GENITALIA: Deferred. RECTAL: Deferred. MUSCULOSKELETAL: No joint deformities. EXTREMITIES: Reveal trace lower extremity edema. NEUROLOGIC: He seems to be grossly intact. DATA: As far as his laboratories are concerned, his white count is 9.1, hemoglobin is 10.7, hematocrit 34.4 with platelets of 143,000. Sodium is 139, potassium 4.7, chloride 94, CO2 of 32 with a BUN of 40, creatinine of 8.7 and a glucose of 150. IMPRESSION: The patient has episode of bradycardia and hypotension with respiratory insufficiency. He has a history of coronary artery disease with stents placed as well as cardiomyopathy, diabetes, hyperlipidemia, chronic obstructive pulmonary disease, obstructive sleep apnea, hypertension, anemia, transient ischemic attack, liver disease, pancreatitis and gout. PLAN: As far as our plan, we will continue with the dopamine IV and follow with Cardiology closely. The patient is on BiPAP and O2 for his obstructive sleep apnea and being followed by Renal for dialysis. He is on Protonix, Singulair, Revatio as well as Lipitor. We will follow closely and treat aggressively along with the other consultants and the primary care doctor. Robby Tate MD
--- NOTE | 2017-06-25 14:15 | CARD ---
APPROVED REPORT EKG Measurement Heart [id number] <Conclusion> Junctional rhythm with retrograde conduction Left axis deviation Abnormal ECG
--- NOTE | 2017-06-25 14:26 | CARD ---
APPROVED REPORT EKG Measurement Heart [id number] <Conclusion> Junctional bradycardia Left axis deviation Inferior infarct, age undetermined Abnormal ECG
--- NOTE | 2017-06-25 15:41 | PN ---
DATE: 06/25/2017 REASON FOR CONSULTATION AND FOLLOWUP: Chest pain, bradycardia, rapid response secondary to beta-valerie possibly. Event noted since last time yesterday dialysis, had a rapid response. Earlier, the patient got 50 mg of Lopressor. The patient denies any chest pain, denies any shortness of breath, on low dose of dopamine. Blood sugar 126, heart rate 60. PHYSICAL EXAMINATION: GENERAL: Not in apparent distress. VITAL SIGNS: Temperature afebrile, heart rate 64, blood pressure 152/66. HEENT: PERRLA. Extraocular muscles intact. NECK: Supple. No carotid bruit or thyromegaly. CHEST: Clear to auscultation. HEART: S1 and S2 regular. ABDOMEN: Soft. EXTREMITIES: Clubbing and cyanosis negative. LABORATORY DATA: WBC is 9, hemoglobin 10, hematocrit 34.4, platelet count 143. Chemistry shows sodium 139, potassium 4, chloride 94, carbon dioxide 39, anion gap of 18, BUN 40, creatinine 8.7. IMPRESSION: Rapid response chest pain; no evidence of acute myocardial infarction; right-sided musculoskeletal pain with tenderness; diabetes, Brittle, full-blown complication of diabetes including diabetic nephropathy, retinopathy, and legally blind as well as neuropathy; status post rapid response, most likely secondary to beta-valerie. THE PATIENT IS VERY SENSITIVE TO BETA-VALERIE. RECOMMENDATION: Hold beta-valerie, continue aspirin. P2Y level 244, was checked. The patient was started back on Plavix. We will switch over to Brilinta. Last time, the patient was discharged on Brilinta, but here in the hospital, again Plavix was started. We will discontinue Plavix. Continue Brilinta, continue sildenafil for pulmonary hypertension. If remained stable, transfer to floor and probably discharge in a day or two. We will get an EKG to see the patient is sinus or junctional, yesterday the patient was in junctional. Possibly, the patient appears to be in junctional in the telemetry. We will wait for the EKG. Interim, continue low-dose dopamine. We will discontinue Plavix, restart Brilinta. Last time, the patient was started on Brilinta as the patient is resistant to Plavix, P2Y level is 244. Avoid rate limiting calcium channel valerie. Also, avoid the beta-valerie for obvious reason. We will follow with you. Thank you, Dr. Kessler, for providing us the opportunity in taking care of the patient, Jason Berger. Continue sildenafil started for pulmonary hypertension, we started when the patient came to see me last week in office, but because of the authorization issue, the patient never got sildenafil. We will give a loading dose of Brilinta 180 stat followed by 90 b.i.d. Plavix was discontinued and Brilinta started after a loading 180. I advised the patient to update his medication and next time when he comes not to bring the old medication list. The patient understands and . We will give stat one dose of Motrin and then followed by 3 doses also for right-sided chest pain. Wean off the dopamine as tolerated. Repeat the EKG in the morning. For now, it does not appear the patient needs the pacemaker, but at this time, shows tachy-chase. We will consider for pacemaker. Discussed with the patient. Jarred Erickson MD
[2017-06-25] MEDS: MetroNIDAZOLE 0.75% Cream(45 gm) TOP SCH (17:35)
[2017-06-25] MEDS: Latanoprost 2.5 ml Opht Soln OU SCH (21:27)
[2017-06-25] MEDS: Insulin Reg-HIGH-Coverage SC SCH (22:11)
--- NOTE | 2017-06-26 00:31 | PN ---
DATE: SUBJECTIVE: Patient was seen and examined on the bedside, looking comfortable. Patient is still in the unit. No swelling of the leg. No chest pain. No palpitation. No headache or dizziness. He states that he feels much better, but continues to be on the dopamine, which is required for the bradycardia. The patient has no complaints of chest pain right now, no shortness of breath. No fever, no chills. No coughing or wheezing. PHYSICAL EXAMINATION VITAL SIGNS: Pulse 54, temperature 98.6, blood pressure 150/47, respiratory rate 18. HEENT: Head normocephalic, atraumatic. Eyes PERRLA. Extraocular muscles intact. Conjunctivae clear. Nose patent. Mucous membranes are moist. NECK: Supple. No carotid bruit. No JVD or thyromegaly. CHEST: Bilaterally symmetrical. HEART: S1 and S2 positive. LUNGS: Clear to auscultation. ABDOMEN: Soft. Decreased bowel sounds. EXTREMITIES: No edema. No cyanosis. NEUROLOGICAL: The patient is awake and alert. Moving all four extremities. Follows simple commands. MEDICATIONS: Ambien, hydralazine, Brilinta later changed to Plavix, vitamin D, Ecotrin, Flomax, insulin, Lipitor, Lovaza, Lyrica, metoprolol, Neurontin, Protonix, Singulair, Starlix, and Zofran. LABORATORY DATA: White blood cells 9.4, hemoglobin 10.7, hematocrit 34.4, platelets 143. Sodium 139, potassium 4.7, BUN 40, creatinine 8.6, glucose 315 and 254. ASSESSMENT AND PLAN: Mr. Jason Berger is a 52-year-old male with anemia, hyperchloremia, renal insufficiency, on hemodialysis three times a week, history of coronary artery disease status post cardiac stenting. Patient had an episode of bradycardia and hypotension with respiratory insufficiency, Rapid Response was called in [facility], history of cardiomyopathy, diabetes mellitus, hypercholesterolemia, chronic obstructive pulmonary disease, asthma, obstructive sleep apnea syndrome, hypertension, transient ischemic attack, history of gouty arthritis, pancreatitis. Continue dopamine intravenous drip, and follow up with Cardiology very closely. Continue bilevel positive airway pressure and oxygen for obstructive sleep apnea and being followed by Renal for dialysis. Continue Protonix, Singulair, Revatio, and Lipitor. Gastrointestinal and deep vein thrombosis prophylaxis. Repeat labs. We will follow up. Diana Kessler MD
[2017-06-26] MEDS: Albuterol-Ipratrop 3 mg / 0.5 (3 ml) UD IH SCH ×4 (01:24→19:32)
[2017-06-26] MEDS: Insulin Human NPH 1 UNITS/0.01 ML SC SCH ×2 (07:51→16:37)
[2017-06-26] MEDS: Multivitamin Vitamin B Complex (Nephro-Vite) Tab PO SCH (08:06)
[2017-06-26] MEDS: Insulin Reg-HIGH-Coverage SC SCH ×3 (08:07→16:37)
--- NOTE | 2017-06-26 09:37 | CARD ---
APPROVED REPORT EKG Measurement Heart [id number] <Conclusion> Junctional rhythm Left axis deviation RVCD PRWP NSSTW changes No change
[2017-06-26] MEDS: VOLTAREN GEL TOP SCH (10:14)
[2017-06-26] MEDS: Omega-3-Acid Ethyl Esters 1 GM Cap PO SCH (10:15)
[2017-06-26] MEDS: Pantoprazole 40 mg EC Tab PO SCH (10:17)
[2017-06-26] MEDS: Sildenafil 20 MG TAB PO SCH (10:17)
--- NOTE | 2017-06-26 11:12 | PN ---
DATE: 06/25/2017 PULMONARY PROGRESS NOTE REFERRING PHYSICIAN: Diana Kessler MD SUBJECTIVE: He is lying in the bed, head at 45 degrees. Overnight events noted. Tolerated BiPAP well. Presently on nasal cannula. Fully awake and alert. No headache. No rhinitis. Mild cough. No nausea. No vomiting. No diarrhea. Has some leg pain. OBJECTIVE: GENERAL: In no acute distress. VITAL SIGNS: Temp is 98, heart rate is 40 to 50, respiratory rate is 20, blood pressure 122/53, pulse ox 98% on room air. HEENT: Moist mucous membranes. Crowded airway. Mallampati score is 4. NECK: Short thick neck. LUNGS: Have fair airflow with few rhonchi. HEART: S1 and S2, bradycardiac. ABDOMEN: Soft and nontender. No organomegaly. EXTREMITIES: There is no edema. NEUROLOGIC: Awake, alert. Follows simple command. MEDICATIONS: He is on Ambien 5 mg at bedtime p.r.n., hydralazine 20 mg twice a day, Brilinta 90 mg twice a day, Claritin 10 mg daily. He is on IV dopamine, also vitamin D 50,000 units weekly, DuoNeb every 6 hour around the clock, Ecotrin 81 mg daily, Flomax 0.4 mg daily, on insulin coverage, Lasix 40 mg twice a day, Lipitor 10 mg daily, Lovaza 2 g p.o. twice a day, Lyrica 50 mg daily, Motrin p.r.n., Nephro-Eva p.r.n., Neurontin 300 mg daily, Protonix 40 mg daily, Revatio 20 mg twice a day, Singulair 10 mg at bedtime, sertraline 50 mg a.c.l., TriCor 145 mg daily, Zofran p.r.n. basis. LABORATORY DATA: Shows hemoglobin 10.7, hematocrit 34.4, WBC 9.1, platelet is 143. Sodium 139, potassium 4.7, chloride 94, bicarbonate 32, BUN 40, creatinine 8.7, glucose 150, calcium is 9.4. IMPRESSION AND PLAN: Status post cardiopulmonary arrest, bradycardia, hypotensive, coronary artery disease, history of coronary stent, sleep apnea syndrome, chronic obstructive lung disease, diabetes, peripheral neuropathy, diabetic retinopathy, nephropathy, requiring dialysis. I guess patient should not get beta-blockers or any agent which causes bradycardia. Presently, asymptomatic, but still bradycardic, on dopamine. Patient is seen by Cardiology. Pulmonary point of view, I would recommend continue BiPAP, keep head at 45 degrees, bronchodilator. Gastric prophylaxis. Sequential compression devices to lower extremity. Cardiology followup. Thank you and we will follow with you. Jarred Escalera MD
--- NOTE | 2017-06-26 11:13 | PN ---
DATE: 06/25/2017 SUBJECTIVE: The patient is seen in the ICU. He is sitting in chair. He is very emotional. He is lethargic. He is complaining of chest pain. He is complaining of difficulty breathing. His heart rate is 33 to 38. Events of last night are reviewed. The patient was receiving dialysis saw him yesterday. Shortly thereafter, became unresponsive. Was found to be bradycardic. He was sent to the emergency room. Rapid response was called. Patient was resuscitated. He was brought to the ICU. Was started on dopamine at 5 mcg per kilogram per minute. The patient has remained hypotensive despite dopamine. He also has remained bradycardic. Patient received 50 mg of Toprol XL yesterday morning. PHYSICAL EXAMINATION: GENERAL: Middle-aged male, sitting in chair in the ICU. VITAL SIGNS: Blood pressure 115/47, heart rate 38, respiratory rate 18, temperature 97. HEENT: Normocephalic, atraumatic, positive pallor. NECK: Supple, no JVD. LUNGS: Bilateral equal entry, bilateral equal expansion. CARDIAC: S1 and S2, regular rate and rhythm, positive murmur, no rub. ABDOMEN: Obese, distended, soft, nontender, bowel sounds present. EXTREMITIES: Chronic stasis changes, hyperpigmentation of the skin of the lower extremities, no edema. INTAKE AND OUTPUT: 1460/not charted. LABORATORY DATA: WBC 9, hemoglobin 10.7, hematocrit 34, platelets 143. Sodium 139, potassium 4.7, chloride 94, CO2 of 32, BUN 40, creatinine 8.7, glucose 150, calcium 9.4. CURRENT MEDICATIONS: Ambien, Apresoline, Brilinta, Claritin, dopamine at 5 mcg per kilogram per minute, Drisdol, DuoNeb, Ecotrin, Flomax, insulin, Lasix 40 b.i.d., Lipitor, Lovaza, Lyrica, ibuprofen, Neurontin, PhosLo, Protonix, Revatio 20 b.i.d., Singulair, Starlix, Tricor, Zofran. ASSESSMENT: 1. Symptomatic bradycardia. 2. Hypotension. 3. Coronary artery disease, recent percutaneous transluminal coronary angioplasty and stents to left anterior descending. 4. Pulmonary hypertension. 5. Brittle diabetes. 6. Diabetic retinopathy, legally blind. 7. History of hypertension. 8. End-stage renal disease. 9. Anemia of chronic kidney disease. 10. Secondary hyperparathyroidism. PLAN: 1. The patient received one dose of beta valerie yesterday morning, the thought is that this might be causing the bradycardia. Although the patient has been dialyzed post that dose and it has been 24 hours, patient remains bradycardic. Discussed with Dr. Erickson. We will continue to monitor closely. Will avoid pacemaker if possible. 2. Persistent chest pain, ? musculoskeletal pain. The patient has been started on NSAIDs per Dr. Erickson. 3. Severe pulmonary hypertension, started on Revatio now. 4. The patient had a full dialysis treatment yesterday. No indication for dialysis at this time. 5. Continue dopamine for inotropic support. 6. Continue to monitor in the ICU. 7. Discussed with , discussed with Dr. Erickson. Discussed with the patient at bedside. More than 35 minutes spent in the care of this critically ill patient. Eva Malcolm MD
--- NOTE | 2017-06-26 12:16 | CP.CCUPN ---
<Tad Méndez - Last Filed: 06/27/17 11:39> CCU Subjective - Physician Review Events Since Last Encounter (Free Text): 06/26/17 12:13 Patient continues to be bradycardic despite dopamine drip. Patient also states he is tired due to lack of sleep; patient refused BiPAP overnight. Subjective (Free Text): 06/26/17 12:13 Patient seen and examined at bedside in no acute distress. Patient states he was unable to sleep overnight but has no complaints at this time. Denies fevers , chills, chest pain, shortness of breath, body aches, headache, abdominal pain , nausea, vomiting, diarrhea. CCU Objective - Vital Signs / Intake & Output Vital Signs (Last 4 hours): Vital Signs Pulse Resp BP Pulse Ox 06/26/17 10:50 64 12 06/26/17 10:49 63 14 06/26/17 10:48 62 15 06/26/17 10:47 63 24 06/26/17 10:46 62 14 06/26/17 10:45 62 17 06/26/17 10:44 57 L 26 H 06/26/17 10:43 64 27 H 06/26/17 10:42 69 16 06/26/17 10:41 64 47 H 06/26/17 10:40 63 40 H 06/26/17 10:39 65 27 H 06/26/17 10:38 64 23 06/26/17 10:37 64 30 H 06/26/17 10:36 65 109 H 96 06/26/17 10:35 64 49 H 92 L 06/26/17 10:34 68 53 H 100 06/26/17 10:33 61 21 91 L 06/26/17 10:32 62 26 H 99 06/26/17 10:31 61 14 99 06/26/17 10:30 63 23 99 06/26/17 10:29 60 27 H 98 06/26/17 10:28 61 24 96 06/26/17 10:27 63 30 H 98 06/26/17 10:26 65 21 100 06/26/17 10:25 64 21 99 06/26/17 10:24 62 18 99 06/26/17 10:23 64 19 98 06/26/17 10:22 61 18 100 06/26/17 10:21 62 29 H 99 06/26/17 10:20 61 33 H 97 06/26/17 10:19 59 L 18 100 06/26/17 10:18 62 14 94 L 06/26/17 10:17 63 14 96 06/26/17 10:16 60 17 95 06/26/17 10:15 62 11 L 100 06/26/17 10:14 59 L 18 129/47 L 95 06/26/17 10:13 62 12 98 06/26/17 10:12 62 15 129/47 L 97 06/26/17 10:11 63 13 98 06/26/17 10:10 62 16 99 06/26/17 10:09 63 16 98 06/26/17 10:08 63 16 98 06/26/17 10:07 63 15 98 06/26/17 10:06 63 17 98 06/26/17 10:05 63 46 H 99 06/26/17 10:04 63 17 98 06/26/17 10:03 63 24 98 06/26/17 10:02 63 20 98 06/26/17 10:01 62 20 98 06/26/17 10:00 60 06/26/17 08:43 63 14 98 06/26/17 08:42 62 13 97 06/26/17 08:41 63 13 97 06/26/17 08:40 63 13 97 06/26/17 08:39 63 16 98 06/26/17 08:38 62 13 98 06/26/17 08:37 63 13 97 06/26/17 08:36 63 13 98 06/26/17 08:35 64 15 98 06/26/17 08:34 65 18 99 06/26/17 08:33 63 15 99 06/26/17 08:32 65 15 98 06/26/17 08:31 64 20 97 06/26/17 08:30 64 15 98 06/26/17 08:29 63 14 98 06/26/17 08:28 65 21 99 06/26/17 08:27 65 17 99 06/26/17 08:26 64 25 H 97 06/26/17 08:25 66 14 100 06/26/17 08:24 64 13 100 06/26/17 08:23 62 14 97 06/26/17 08:22 63 14 99 06/26/17 08:21 66 22 99 06/26/17 08:20 65 15 99 06/26/17 08:19 64 19 99 06/26/17 08:18 65 15 99 06/26/17 08:17 62 28 H 99 06/26/17 08:16 64 18 99 06/26/17 08:15 64 16 99 06/26/17 08:14 65 15 98 Intake and Output (Last 8hrs): Intake & Output 06/25/17 06/26/17 06/26/17 22:59 06:59 14:59 Intake Total 970 664 Output Total 0 0 Balance 970 664 Weight 92.986 kg Intake: IV 490 364 Right Antecubital 240 280 Oral 480 300 Output: Urine 0 0 Urine, Voided 0 0 Other: # Bowel Movements 1 - Physical Exam Head: Positive for: Atraumatic, Normocephalic Pupils: Positive for: PERRL Extroacular Muscles: Positive for: EOMI Conjunctiva: Positive for: Normal Mouth: Positive for: Moist Mucous Membranes Neck: Positive for: Normal Range of Motion Respiratory/Chest: Positive for: Good Air Exchange, Tachypneic (mild), Other ( crackles bilaterally.). Negative for: Respiratory Distress, Accessory Muscle Use Cardiovascular: Positive for: Regular Rate and Rhythm, Normal S1, S2. Negative for: Murmurs Abdomen: Negative for: Tenderness, Distention, Peritoneal Signs Back: Positive for: Normal Inspection Upper Extremity: Positive for: Normal Inspection. Negative for: Cyanosis, Edema Lower Extremity: Positive for: Normal Inspection. Negative for: Edema Neurological: Positive for: GCS=15, CN II-XII Intact, Speech Normal Skin: Positive for: Warm, Dry, Normal Color. Negative for: Rashes Psychiatric: Positive for: Alert, Oriented x 3, Normal Insight, Normal Concentration - Medications Active Medications: Active Medications Generic Name Dose Route Start Last Admin Trade Name Freq PRN Reason Stop Dose Admin Albuterol/Ipratropium 3 ml 06/24/17 20:00 06/26/17 07:26 Duoneb 3 Mg/0.5 Mg (3 Ml) Ud IH 3 ml [id number] FANTASMA Administration Aspirin 81 mg 06/24/17 10:00 06/26/17 10:13 Ecotrin PO 81 mg DAILY FANTASMA Administration Atorvastatin Calcium 10 mg 06/24/17 17:00 06/25/17 18:24 Lipitor PO 10 mg DIN FANTASMA Administration Calcium Acetate 1,334 mg 06/24/17 10:00 06/26/17 10:17 Phoslo PO 1,334 mg TID FANTASMA Administration Ergocalciferol 1 cap 06/24/17 10:00 06/24/17 10:22 Drisdol 50,000 Intl Units Cap PO 1 cap SAT FANTASMA Administration Fenofibrate 145 mg 06/25/17 10:01 06/26/17 10:18 Tricor PO 145 mg DAILY FANTASMA Administration Furosemide 40 mg 06/24/17 10:00 06/26/17 10:14 Lasix PO 40 mg BID FANTASMA Administration Gabapentin 300 mg 06/25/17 10:00 06/26/17 10:17 Neurontin PO Not Given DAILY FANTASMA Protocol Home Med 1 unit 06/24/17 10:00 06/26/17 10:14 Home Med TOP Not Given DAILY FANTASMA Home Med 1 unit 06/24/17 10:00 06/26/17 10:14 Home Med INH Not Given BID FANTASMA Hydralazine HCl 20 mg 06/24/17 10:36 06/26/17 10:12 Apresoline PO Not Given BID FANTASMA Dopamine HCl/Dextrose 400 mg in 250 mls @ 17.503 mls/hr 06/24/17 14:18 01:00 Dopamine 400mg/250ml D5w IV 7 mcg/kg/min .[id number] PRN 24.504 mls/hr TITRATE PER MD ORDER Titration Protocol 5 MCG/KG/MIN Insulin Human NPH 70 units 06/24/17 16:30 06/25/17 17:48 Humulin N SC 70 units ACD FANTASMA Administration Insulin Human NPH 80 units 06/24/17 08:30 06/26/17 07:51 Humulin N SC 80 units ACB FANTASMA Administration Insulin Human Regular 0 units 06/25/17 22:00 06/26/17 08:07 Humulin R High SC 4 units ACHS FANTASMA Administration Protocol Latanoprost 1 ml 06/24/17 22:00 06/25/17 21:27 Xalatan Opht OU 1 ml HS FANTASMA Administration Loratadine 10 mg 06/24/17 22:00 06/25/17 21:26 Claritin PO 10 mg HS FANTASMA Administration Metronidazole 1 gm 06/24/17 10:00 06/25/17 17:35 Metrogel Cream TOP Not Given DAILY FANTASMA Montelukast Sodium 10 mg 06/24/17 22:00 06/25/17 21:27 Singulair PO 10 mg HS FANTASMA Administration Nateglinide 120 mg 06/24/17 16:30 06/24/17 19:11 Starlix PO 120 mg ACD FANTASMA Administration Nateglinide 60 mg 06/24/17 11:30 06/26/17 12:00 Starlix PO 60 mg ACL FANTASMA Administration [id number] Ethyl Esters 2 gm 06/24/17 10:00 06/26/17 10:15 Lovaza PO 2 gm BID FANTASMA Administration Ondansetron HCl 4 mg 06/23/17 23:32 06/24/17 20:18 Zofran Inj IVP 4 mg Q4H PRN Administration Nausea/Vomiting Pantoprazole Sodium 40 mg 06/25/17 10:07 06/26/17 10:17 Protonix Ec Tab PO 40 mg DAILY FANTASMA Administration Pregabalin 50 mg 06/25/17 10:00 06/26/17 10:16 Lyrica PO Not Given DAILY FANTASMA Sildenafil Citrate 20 mg 06/24/17 18:00 06/26/17 10:17 Revatio PO 20 mg BID FANTASMA Administration Tamsulosin HCl 0.4 mg 06/24/17 10:00 06/26/17 10:13 Flomax PO 0.4 mg DAILY FANTASMA Administration Ticagrelor 90 mg 06/25/17 18:00 06/26/17 10:13 Brilinta PO 90 mg BID FANTASMA Administration Vitamin B Complex/Vit C/Folic Acid 1 tab 06/25/17 08:00 06/26/17 08:06 Nephro-Genet PO 1 tab 0800 FANTASMA Administration Zolpidem Tartrate 5 mg 06/24/17 08:20 06/25/17 22:10 Ambien PO 5 mg HS PRN Administration Insomnia Protocol - Patient Studies Lab Studies: Lab Studies 06/26/17 06/26/17 06/25/17 Range/Units 11:43 07:50 21:40 POC Glucose (mg/dL) 150 H 229 H 448 H* (65-110) mg/dL 06/25/17 06/25/17 Range/Units 16:03 11:24 POC Glucose (mg/dL) 318 H 254 H (65-110) mg/dL Laboratory Results - last 24 hr 06/25/17 06/25/17 06/25/17 11:24 16:03 21:40 POC Glucose (mg/dL) 254 H 318 H 448 H* 06/26/17 06/26/17 07:50 11:43 POC Glucose (mg/dL) 229 H 150 H EKG/Cardiology Studies: Cardiology / EKG Studies 06/26/17 07:00 ELECTROCARDIOGRAM Routine Comment: Reason For Exam: CAD PRE OP:: N Does Patient Have a Pacemaker?: No Fingerstick Blood Sugar Results: 150 Review of Systems - Constitutional Constitutional: absent: Fever, Chills, Sweats - EENT Eyes: absent: Blurred Vision, Change in Vision Ears: absent: Ear Discharge, Ear Pain - Cardiovascular Cardiovascular: absent: Chest Pain, Dyspnea, Leg Edema - Respiratory Respiratory: absent: Cough, Dyspnea, Wheezing - Gastrointestinal Gastrointestinal: absent: Diarrhea, Nausea, Vomiting - Genitourinary Genitourinary: absent: Dysuria, Flank Pain - Neurological Neurological: absent: Confusion, Dizziness, Headaches - Psychiatric Psychiatric: absent: Anxiety, Change in Appetite - Endocrine Endocrine: Fatigue. absent: Palpitations Critical Care Progress Note - Nutrition Nutrition: Nutrition Category Date Time Status Renal Diet [DIET] Diets 06/24/17 Lunch Ordered Assessment/Plan - Assessment and Plan (Free Text) Assessment: 52 M pmh COPD, asthma, CO2 retention and hypoventilation syndrome, GERD, NIDDM, ESRD HD MWF, hypertension, Cardiac catheterization with stent placement 05/2017, TIA, CHF, left corneal transplant, renal retinopathy, admitted to hospital for chest pain. 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 INTERNAL REVENUE SERVICE AGENT was called patient was given 2 rounds of atropine, patient was then transferred to ICU and started on dopamine drip. Due to patient still experiencing bradycardia with dopamine drip , patient will have pacemaker placed tomorrow. Plan: Neurologic -AAOx3, responsive. -Continue with gabapentin and lyrica Cardiovascular -Monitor bradycardia -Continue with dopamine drip -Patient will have pacemaker placed tomorrow. -Continue with aspirin, statin, furosemide, hydralazine, -Continue lovaza -Continue with brillinta -Cardiology consult; recs appreciated Respiratory -Continue with Duonebs fantasma -Continue revatio for recently discovered Pulmonary hypertension -Pulmonology consult; recs appreciated -BiPAP encouraged; patient refuses Renal/Fluids -Hemodialysis MWF -continue with nephro-genet and phoslo -Nephrology consult; recs appreciated Gastrointestinal/Nutrition -Renal diet Endocrine -Continue with insulin NPH and starlix -fingersticks q4h due to hyperglycemia -monitor glucose levels closely -continue flomax Hematologic -H&H stable continue to monitor Patient currently receiving Dopamine through peripheral line. No PICC line since patient is a dialysis patient as per cardiology patient is to remain receiving dopamine via peripheral line. <Adam Linares - Last Filed: 06/27/17 15:23> CCU Objective - Vital Signs / Intake & Output Vital Signs (Last 4 hours): Vital Signs Pulse Resp BP Pulse Ox 06/27/17 15:18 60 21 100 06/27/17 15:17 60 31 H 100 06/27/17 15:16 58 L 26 H 100 06/27/17 15:15 60 24 100 06/27/17 15:14 60 16 100 06/27/17 15:13 107/44 L 06/27/17 15:12 60 29 H 06/27/17 15:11 60 17 06/27/17 15:10 61 59 H 06/27/17 15:09 60 20 06/27/17 15:08 60 22 06/27/17 15:07 63 12 06/27/17 15:06 61 22 06/27/17 15:05 60 22 06/27/17 15:04 54 L 17 06/27/17 15:03 61 19 06/27/17 15:02 61 16 06/27/17 15:01 61 23 06/27/17 15:00 60 20 06/27/17 14:59 60 21 06/27/17 14:58 60 35 H 06/27/17 14:57 60 15 06/27/17 14:56 60 20 06/27/17 14:55 60 20 06/27/17 14:54 60 15 06/27/17 14:53 60 21 06/27/17 14:52 60 29 H 06/27/17 14:51 61 17 06/27/17 14:50 61 20 06/27/17 14:49 61 26 H 06/27/17 14:48 61 14 06/27/17 14:47 62 19 06/27/17 14:46 61 18 06/27/17 14:45 61 14 06/27/17 14:44 61 19 06/27/17 14:43 62 24 06/27/17 14:42 63 32 H 06/27/17 14:41 60 20 06/27/17 14:40 60 18 06/27/17 14:39 61 20 06/27/17 14:38 61 28 H 06/27/17 14:37 63 30 H 06/27/17 14:36 62 23 06/27/17 14:35 73 51 H 06/27/17 14:34 61 19 06/27/17 14:33 60 23 06/27/17 14:32 60 23 06/27/17 14:31 60 20 06/27/17 14:30 60 19 06/27/17 14:22 151/53 H - Medications Active Medications: Active Medications Generic Name Dose Route Start Last Admin Trade Name Katelynn PRN Reason Stop Dose Admin Albuterol/Ipratropium 3 ml 06/24/17 20:00 06/27/17 13:18 Duoneb 3 Mg/0.5 Mg (3 Ml) Ud IH 3 ml [id number] FANTASMA Administration Aspirin 81 mg 06/24/17 10:00 06/27/17 14:20 Ecotrin PO 81 mg DAILY FANTASMA Administration Atorvastatin Calcium 10 mg 06/24/17 17:00 06/25/17 18:24 Lipitor PO 10 mg DIN FANTASMA Administration Calcium Acetate 1,334 mg 06/24/17 10:00 06/27/17 14:23 Phoslo PO 1,334 mg TID FANTASMA Administration Ergocalciferol 1 cap 06/24/17 10:00 06/24/17 10:22 Drisdol 50,000 Intl Units Cap PO 1 cap SAT FANTASMA Administration Fenofibrate 145 mg 06/25/17 10:01 06/27/17 14:23 Tricor PO 145 mg DAILY FANTASMA Administration Furosemide 40 mg 06/24/17 10:00 06/27/17 14:22 Lasix PO 40 mg BID FANTASMA Administration Gabapentin 300 mg 06/26/17 22:00 06/26/17 22:25 Neurontin PO 300 mg 2200 FANTASMA Administration Protocol Home Med 1 unit 06/24/17 10:00 06/27/17 14:24 Home Med TOP Not Given DAILY FANTASMA Home Med 1 unit 06/24/17 10:00 06/27/17 14:32 Home Med INH Not Given BID FANTASMA Hydralazine HCl 20 mg 06/24/17 10:36 06/27/17 14:10 Apresoline PO Not Given BID FANTASMA Insulin Human NPH 70 units 06/24/17 16:30 06/26/17 16:37 Humulin N SC Not Given ACD FANTASMA Insulin Human NPH 80 units 06/24/17 08:30 06/27/17 14:11 Humulin N SC Not Given ACB FANTASMA Insulin Human Regular 0 units 06/25/17 22:00 06/27/17 14:12 Humulin R High SC Not Given ACHS FANTASMA Protocol Latanoprost 1 ml 06/24/17 22:00 06/25/17 21:27 Xalatan Opht OU 1 ml HS FANTASMA Administration Loratadine 10 mg 06/24/17 22:00 06/26/17 22:25 Claritin PO 10 mg HS FANTASMA Administration Metronidazole 1 gm 06/24/17 10:00 06/27/17 14:18 Metrogel Cream TOP Not Given DAILY FANTASMA Montelukast Sodium 10 mg 06/24/17 22:00 06/26/17 22:25 Singulair PO 10 mg HS FANTASMA Administration Nateglinide 120 mg 06/24/17 16:30 06/27/17 14:29 Starlix PO 60 mg ACD FANTASMA Administration Nateglinide 60 mg 06/24/17 11:30 06/27/17 14:29 Starlix PO 60 mg ACL FANTASMA Administration [id number] Ethyl Esters 2 gm 06/24/17 10:00 06/27/17 14:20 Lovaza PO 2 gm BID FANTASMA Administration Ondansetron HCl 4 mg 06/27/17 08:30 Zofran Inj IM Q4H PRN Nausea/Vomiting Pantoprazole Sodium 40 mg 06/25/17 10:07 06/27/17 14:21 Protonix Ec Tab PO 40 mg DAILY FANTASMA Administration Pregabalin 50 mg 06/25/17 10:00 06/27/17 14:22 Lyrica PO 50 mg DAILY FANTASMA Administration Sildenafil Citrate 20 mg 06/24/17 18:00 06/27/17 14:28 Revatio PO 20 mg BID FANTASMA Administration Tamsulosin HCl 0.4 mg 06/24/17 10:00 06/27/17 14:21 Flomax PO 0.4 mg DAILY FANTASMA Administration Ticagrelor 90 mg 06/25/17 18:00 06/27/17 14:20 Brilinta PO 90 mg BID FANTASMA Administration Vitamin B Complex/Vit C/Folic Acid 1 tab 06/25/17 08:00 06/27/17 14:21 Nephro-Genet PO 1 tab 0800 FANTASMA Administration Zolpidem Tartrate 5 mg 06/24/17 08:20 06/26/17 22:49 Ambien PO 5 mg HS PRN Administration Insomnia Protocol - Patient Studies Lab Studies: Microbiology Studies 06/24/17 16:00 MRSA Culture (Admit) - Final Naris MRSA NOT DETECTED Lab Studies 06/27/17 06/27/17 06/27/17 Range/Units 11:26 08:42 08:21 WBC (4.5-11.0) 10^3/ul RBC (3.5-6.1) 10^6/uL Hgb (14.0-18.0) g/dL Hct (42.0-52.0) % MCV (80.0-105.0) fl MCH (25.0-35.0) pg MCHC (31.0-37.0) g/dl RDW (11.5-14.5) % Plt Count (120.0-450.0) 10^3/uL MPV (7.0-11.0) fl Gran % (50.0-68.0) % Lymph % (Auto) (22.0-35.0) % [place] % (Auto) (1.0-6.0) % Eos % (Auto) (1.5-5.0) % Baso % (Auto) (0.0-3.0) % Gran # (1.4-6.5) Lymph # (Auto) (1.2-3.4) [place] # (Auto) (0.1-0.6) Eos # (Auto) (0.0-0.7) Baso # (Auto) (0.0-2.0) K/mm3 PT (9.4-12.5) SECONDS INR (0.93-1.08) Sodium (132-148) mmol/L Potassium (3.6-5.0) mmol/L Chloride (98-107) mmol/L Carbon Dioxide (21-33) mmol/L Anion Gap (10-20) BUN (7-21) mg/dL Creatinine (0.8-1.5) mg/dl Est GFR ( Amer) Est GFR (Non-Af Amer) POC Glucose (mg/dL) 145 H 53 L 41 L (65-110) mg/dL Random Glucose (70-110) mg/dL Calcium (8.4-10.5) mg/dL Phosphorus (2.5-4.5) mg/dL Magnesium (1.7-2.2) mg/dL Total Bilirubin (0.2-1.3) mg/dL AST (17-59) U/L ALT (7-56) U/L Alkaline Phosphatase (38-126) U/L Total Protein (5.8-8.3) g/dL Albumin (3.0-4.8) g/dL Globulin gm/dL Albumin/Globulin Ratio (1.1-1.8) 06/27/17 06/27/17 06/27/17 Range/Units 07:47 07:24 05:50 WBC (4.5-11.0) 10^3/ul RBC (3.5-6.1) 10^6/uL Hgb (14.0-18.0) g/dL Hct (42.0-52.0) % MCV (80.0-105.0) fl MCH (25.0-35.0) pg MCHC (31.0-37.0) g/dl RDW (11.5-14.5) % Plt Count (120.0-450.0) 10^3/uL MPV (7.0-11.0) fl Gran % (50.0-68.0) % Lymph % (Auto) (22.0-35.0) % [place] % (Auto) (1.0-6.0) % Eos % (Auto) (1.5-5.0) % Baso % (Auto) (0.0-3.0) % Gran # (1.4-6.5) Lymph # (Auto) (1.2-3.4) [place] # (Auto) (0.1-0.6) Eos # (Auto) (0.0-0.7) Baso # (Auto) (0.0-2.0) K/mm3 PT (9.4-12.5) SECONDS INR (0.93-1.08) Sodium 137 (132-148) mmol/L Potassium 4.2 (3.6-5.0) mmol/L Chloride 96 L (98-107) mmol/L Carbon Dioxide 28 (21-33) mmol/L Anion Gap 17 (10-20) BUN 34 H (7-21) mg/dL Creatinine 7.2 H (0.8-1.5) mg/dl Est GFR ( Amer) 10 Est GFR (Non-Af Amer) 8 POC Glucose (mg/dL) 64 L 43 L (65-110) mg/dL Random Glucose 48 L* D (70-110) mg/dL Calcium 8.8 (8.4-10.5) mg/dL Phosphorus (2.5-4.5) mg/dL Magnesium (1.7-2.2) mg/dL Total Bilirubin 0.7 (0.2-1.3) mg/dL AST 231 H D (17-59) U/L ALT 285 H (7-56) U/L Alkaline Phosphatase 40 (38-126) U/L Total Protein 7.3 (5.8-8.3) g/dL Albumin 3.4 (3.0-4.8) g/dL Globulin 3.9 gm/dL Albumin/Globulin Ratio 0.9 L (1.1-1.8) 06/27/17 06/27/17 06/26/17 Range/Units 05:50 05:50 21:40 WBC 6.1 (4.5-11.0) 10^3/ul RBC 3.38 L (3.5-6.1) 10^6/uL Hgb 9.9 L (14.0-18.0) g/dL Hct 31.7 L (42.0-52.0) % MCV 93.8 (80.0-105.0) fl MCH 29.3 (25.0-35.0) pg MCHC 31.2 (31.0-37.0) g/dl RDW 16.4 H (11.5-14.5) % Plt Count 139 (120.0-450.0) 10^3/uL MPV 12.8 H (7.0-11.0) fl Gran % 72.8 H (50.0-68.0) % Lymph % (Auto) 17.0 L (22.0-35.0) % [place] % (Auto) 7.4 H (1.0-6.0) % Eos % (Auto) 2.5 (1.5-5.0) % Baso % (Auto) 0.3 (0.0-3.0) % Gran # 4.40 (1.4-6.5) Lymph # (Auto) 1.0 L (1.2-3.4) [place] # (Auto) 0.5 (0.1-0.6) Eos # (Auto) 0.2 (0.0-0.7) Baso # (Auto) 0.02 (0.0-2.0) K/mm3 PT 16.3 H (9.4-12.5) SECONDS INR 1.41 H (0.93-1.08) Sodium (132-148) mmol/L Potassium (3.6-5.0) mmol/L Chloride (98-107) mmol/L Carbon Dioxide (21-33) mmol/L Anion Gap (10-20) BUN (7-21) mg/dL Creatinine (0.8-1.5) mg/dl Est GFR ( Amer) Est GFR (Non-Af Amer) POC Glucose (mg/dL) 138 H (65-110) mg/dL Random Glucose (70-110) mg/dL Calcium (8.4-10.5) mg/dL Phosphorus (2.5-4.5) mg/dL Magnesium (1.7-2.2) mg/dL Total Bilirubin (0.2-1.3) mg/dL AST (17-59) U/L ALT (7-56) U/L Alkaline Phosphatase (38-126) U/L Total Protein (5.8-8.3) g/dL Albumin (3.0-4.8) g/dL Globulin gm/dL Albumin/Globulin Ratio (1.1-1.8) 06/26/17 06/26/17 06/26/17 Range/Units 18:10 18:10 16:01 WBC 7.0 D (4.5-11.0) 10^3/ul RBC 3.27 L (3.5-6.1) 10^6/uL Hgb 9.7 L (14.0-18.0) g/dL Hct 29.9 L (42.0-52.0) % MCV 91.4 D (80.0-105.0) fl MCH 29.7 (25.0-35.0) pg MCHC 32.4 (31.0-37.0) g/dl RDW 16.2 H (11.5-14.5) % Plt Count 145 (120.0-450.0) 10^3/uL MPV 12.1 H (7.0-11.0) fl Gran % 78.3 H (50.0-68.0) % Lymph % (Auto) 12.0 L (22.0-35.0) % [place] % (Auto) 7.6 H (1.0-6.0) % Eos % (Auto) 1.7 (1.5-5.0) % Baso % (Auto) 0.4 (0.0-3.0) % Gran # 5.47 (1.4-6.5) Lymph # (Auto) 0.8 L (1.2-3.4) [place] # (Auto) 0.5 (0.1-0.6) Eos # (Auto) 0.1 (0.0-0.7) Baso # (Auto) 0.03 (0.0-2.0) K/mm3 PT (9.4-12.5) SECONDS INR (0.93-1.08) Sodium 137 (132-148) mmol/L Potassium 3.4 L (3.6-5.0) mmol/L Chloride 93 L (98-107) mmol/L Carbon Dioxide 29 (21-33) mmol/L Anion Gap 18 (10-20) BUN 33 H (7-21) mg/dL Creatinine 5.9 H (0.8-1.5) mg/dl Est GFR ( Amer) 12 Est GFR (Non-Af Amer) 10 POC Glucose (mg/dL) 160 H (65-110) mg/dL Random Glucose 120 H (70-110) mg/dL Calcium 9.4 (8.4-10.5) mg/dL Phosphorus 3.6 (2.5-4.5) mg/dL Magnesium 2.1 (1.7-2.2) mg/dL Total Bilirubin 0.8 (0.2-1.3) mg/dL AST 311 H D (17-59) U/L ALT 383 H (7-56) U/L Alkaline Phosphatase 59 (38-126) U/L Total Protein 8.2 (5.8-8.3) g/dL Albumin 3.8 (3.0-4.8) g/dL Globulin 4.4 gm/dL Albumin/Globulin Ratio 0.9 L (1.1-1.8) Laboratory Results - last 24 hr 06/26/17 06/26/17 06/26/17 16:01 18:10 18:10 WBC 7.0 D RBC 3.27 L Hgb 9.7 L Hct 29.9 L MCV 91.4 D MCH 29.7 MCHC 32.4 RDW 16.2 H Plt Count 145 MPV 12.1 H Gran % 78.3 H Lymph % (Auto) 12.0 L [place] % (Auto) 7.6 H Eos % (Auto) 1.7 Baso % (Auto) 0.4 Gran # 5.47 Lymph # (Auto) 0.8 L [place] # (Auto) 0.5 Eos # (Auto) 0.1 Baso # (Auto) 0.03 PT INR Sodium 137 Potassium 3.4 L Chloride 93 L Carbon Dioxide 29 Anion Gap 18 BUN 33 H Creatinine 5.9 H Est GFR ( Amer) 12 Est GFR (Non-Af Amer) 10 POC Glucose (mg/dL) 160 H Random Glucose 120 H Calcium 9.4 Phosphorus 3.6 Magnesium 2.1 Total Bilirubin 0.8 AST 311 H D ALT 383 H Alkaline Phosphatase 59 Total Protein 8.2 Albumin 3.8 Globulin 4.4 Albumin/Globulin Ratio 0.9 L 06/26/17 06/27/17 06/27/17 21:40 05:50 05:50 WBC 6.1 RBC 3.38 L Hgb 9.9 L Hct 31.7 L MCV 93.8 MCH 29.3 MCHC 31.2 RDW 16.4 H Plt Count 139 MPV 12.8 H Gran % 72.8 H Lymph % (Auto) 17.0 L [place] % (Auto) 7.4 H Eos % (Auto) 2.5 Baso % (Auto) 0.3 Gran # 4.40 Lymph # (Auto) 1.0 L [place] # (Auto) 0.5 Eos # (Auto) 0.2 Baso # (Auto) 0.02 PT 16.3 H INR 1.41 H Sodium Potassium Chloride Carbon Dioxide Anion Gap BUN Creatinine Est GFR ( Amer) Est GFR (Non-Af Amer) POC Glucose (mg/dL) 138 H Random Glucose Calcium Phosphorus Magnesium Total Bilirubin AST ALT Alkaline Phosphatase Total Protein Albumin Globulin Albumin/Globulin Ratio 06/27/17 06/27/17 06/27/17 05:50 07:24 07:47 WBC RBC Hgb Hct MCV MCH MCHC RDW Plt Count MPV Gran % Lymph % (Auto) [place] % (Auto) Eos % (Auto) Baso % (Auto) Gran # Lymph # (Auto) [place] # (Auto) Eos # (Auto) Baso # (Auto) PT INR Sodium 137 Potassium 4.2 Chloride 96 L Carbon Dioxide 28 Anion Gap 17 BUN 34 H Creatinine 7.2 H Est GFR ( Amer) 10 Est GFR (Non-Af Amer) 8 POC Glucose (mg/dL) 43 L 64 L Random Glucose 48 L* D Calcium 8.8 Phosphorus Magnesium Total Bilirubin 0.7 AST 231 H D ALT 285 H Alkaline Phosphatase 40 Total Protein 7.3 Albumin 3.4 Globulin 3.9 Albumin/Globulin Ratio 0.9 L 06/27/17 06/27/17 06/27/17 08:21 08:42 11:26 WBC RBC Hgb Hct MCV MCH MCHC RDW Plt Count MPV Gran % Lymph % (Auto) [place] % (Auto) Eos % (Auto) Baso % (Auto) Gran # Lymph # (Auto) [place] # (Auto) Eos # (Auto) Baso # (Auto) PT INR Sodium Potassium Chloride Carbon Dioxide Anion Gap BUN Creatinine Est GFR ( Amer) Est GFR (Non-Af Amer) POC Glucose (mg/dL) 41 L 53 L 145 H Random Glucose Calcium Phosphorus Magnesium Total Bilirubin AST ALT Alkaline Phosphatase Total Protein Albumin Globulin Albumin/Globulin Ratio EKG/Cardiology Studies: Cardiology / EKG Studies 06/27/17 11:20 ELECTROCARDIOGRAM Stat Comment: Reason For Exam: s/p ppm PERFORMING PHYSICIAN/PROVIDER:: Jarred Erickson 06/28/17 07:00 ELECTROCARDIOGRAM Routine Comment: S/p PPM Reason For Exam: CAD PRE OP:: N Does Patient Have a Pacemaker?: No Critical Care Progress Note - Nutrition Nutrition: Nutrition Category Date Time Status Renal Diet [DIET] Diets 06/24/17 Lunch Ordered Attending/Attestation - Attestation I have personally seen and examined this patient.: Yes I have reviewed all pertinent clinical information: Yes Notes (Text): 06/27/17 15:[address] Linares note
--- NOTE | 2017-06-26 13:22 | CON ---
DATE: 06/24/2017 REASON FOR CONSULTATION: Chest pain, shortness of breath, hyperkalemia. HISTORY OF PRESENT ILLNESS: A 52-year-old male known to me from outpatient hemodialysis. Patient was recently admitted to the hospital with complaints of chest pain, chest tightness, shortness of breath. Patient underwent cardiac catheterization. He had 2 stents placed to his LAD. Subsequently, patient was discharged, but he continues to have chest pain, shortness of breath. This is his second or third admission after stenting. Patient did not go for dialysis yesterday because of his chest pain and shortness of breath. He complains of being very tired. He complains of being extremely fatigued. He came to the hospital later in the evening with similar complaints. He was found to have elevated potassium of 5.5. His troponin was negative at 0.05. His BNP was elevated at 30,600. AST and ALT are elevated. PAST MEDICAL AND SURGICAL HISTORY: CAD, PTCA and stent, CHF, COPD, obstructive sleep apnea, NIDDM, hypertension, TIA, pulmonary hypertension. FAMILY HISTORY: Hypertension, ESRD, NIDDM SOCIAL HISTORY: No smoking, no alcohol use. ALLERGIES: MOXIFLOXACIN, PENICILLIN. MEDICATIONS AT HOME: Lumigan, Lasix 40 b.i.d., insulin, hydralazine 20 b.i.d., Zyrtec, Zolpidem. Flomax, Crestor, Lyrica, Starlix (nateglinide), Singulair, gabapentin, Plavix. REVIEW OF SYSTEMS: All systems are reviewed, pertinent positives as mentioned in history of presenting illness, rest unremarkable. PHYSICAL EXAMINATION: GENERAL: Middle-aged male, seen in the dialysis unit. Complains of pain. VITAL SIGNS: Blood pressure 129/90, heart rate 96, respiratory rate 20, temperature 97.8. HEENT: Normocephalic, atraumatic, positive pallor. NECK: Supple, no JVD. LUNGS: Bilateral equal air entry, bilateral equal expansion, bilateral rhonchi, minimal rales. CARDIAC: S1, S2. Regular rate and rhythm, positive murmur, no rub. ABDOMEN: Obese, distended, soft, nontender, bowel sounds present. EXTREMITIES: Chronic stasis changes, hyperpigmented skin, no edema. LABORATORY DATA: WBC 9, hemoglobin 10, hematocrit 32, platelets 150. Sodium 138, potassium 5.0, chloride 95, CO2 25, BUN 62, creatinine 11.1, glucose 147, calcium 9.2, phosphorus 8.0, magnesium 2.5, AST greater than 750, ALT 468, albumin 3.9. CURRENT MEDICATIONS: Ambien, Apresoline, Claritin, Drisdol, Ecotrin, Flomax, insulin, Lasix 40 p.o. b.i.d., Lipitor, Lyrica 50 t.i.d., metronidazole, folic acid, gabapentin 300, Plavix, Protonix, Revatio, Singulair, Starlix, fenofibrate, Zofran. ASSESSMENT: 1. Hyperkalemia. 2. Chest pain, shortness of breath, likely related to pulmonary hypertension. 3. Coronary artery disease, recent percutaneous transluminal coronary angioplasty and stent to the left anterior descending. 4. Non-insulin dependent diabetes mellitus. 5. Hypertension. 6. Peripheral vascular disease. 7. Anemia of chronic kidney disease. PLAN: 1. Case discussed with Dr. Erickson, noncardiac chest pain. Likely secondary to pulmonary hypertension. 2. Stable dialysis. 3. Elevated LFTs? Congestive hepatopathy?? 4. Repeat LFTs after dialysis. 5. Pulmonary followup. Eva Malcolm MD
--- NOTE | 2017-06-26 14:05 | PN ---
DATE: 06/26/2017 SUBJECTIVE: The patient is seen and examined at the bedside. He is comfortable. He talks full sentences. He is not in respiratory or otherwise distress. PHYSICAL EXAMINATION VITAL SIGNS: Heart rate 63, blood pressure 135/45, respiratory rate 14, oxygen saturation 98. ENT: Head and neck atraumatic. LUNGS: Clear to auscultation bilaterally. HEART: Regular rate and rhythm. S1 and S2 normal. ABDOMEN: Soft, nontender and nondistended. MUSCULOSKELETAL: No C/C/E. NEUROLOGIC: The patient moves all extremities spontaneously. SKIN: Moist. PSYCHIATRIC: The patient is alert and oriented x3. LABORATORY DATA: WBC 9.1, hemoglobin 10.7, platelet count 143. Sodium 139, potassium 4.7, chloride 94, carbon dioxide 32, BUN 40, creatinine is 8.7, glucose 448. MEDICATIONS: DuoNeb every 6 hours, aspirin daily, Lipitor, PhosLo, dopamine drip, Drisdol, TriCor, Lasix b.i.d., Neurontin, hydralazine, regular insulin sliding scale high protocol, insulin NPH 70 units subcutaneous a.c.d. and 80 units subcutaneous a.c.d , Claritin, Flagyl, Singulair, Starlix, Zofran p.r.n., Protonix, Lyrica, Revatio, Brilinta, vitamin D and Ambien p.r.n. ASSESSMENT AND PLAN: This is a 52-year-old gentleman who is very sensitive to beta-blockers resulted in hemodynamically significant bradycardia, requiring admission to intensive care unit and dopamine drip. Nevertheless, it has been more than 48 hours since that happened and the patient continued to depend on dopamine for maintaining relatively stable hemodynamics. Decision was made to proceed with pacemaker placement that is scheduled for tomorrow. Hopefully, his hypotension is rate dependent and once pacemaker is placed, his hemodynamics normalized and allows us to wean off dopamine. I will continue to target euvolemia, euglycemia, normothermia and oxygen saturation more than 90%. We will keep close eye on his blood glucose and we will adjust the insulin regimen if needed. We will continue to maintain deep venous thrombosis and gastrointestinal prophylaxis. ccm time 40 min Adam Linares MD [facility] # [id number] RACHEL
--- NOTE | 2017-06-26 15:27 | CP.PCM.PN ---
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 stents, TIA, & asthma. On 06/12, pt went for cardiac cath through R groin with new cardiac stent insertion. Pt re-admitted to [facility] with renal failure, dizziness ( secondary to hypotension), and chest pain. After becoming unresponsive, pt was found to have elevated serial tropins, NSTEMI and hypotension. Pt was transferred to ICU for elevated troponins and dopamine drip. He was discharged home on 06/14 and re-admitted on 06/16 for bradycardia & chest pain and discharged home. On 06/23/17, pt re-admitted to [facility] ER for chest pain after missing dialysis and shortness of breath related to pulmonary HTN. On 06/24/17 LOOM TUNER called for hypotension and patient was transferred to ICU/CCU for atropine and IV dopamine. Today, pt seen in CCU, eating lunch. No distress noted. Pt denies fevers, chills, nausea/vomiting, diarrhea, constipation or urinary changes. Objective - Vital Signs/Intake and Output Vital Signs (last 24 hours): Temp Pulse Resp BP Pulse Ox 97.6 F 64 12 129/47 L 96 06/26/17 08:00 06/26/17 10:50 06/26/17 10:50 06/26/17 10:14 06/26/17 10:36 Intake and Output: 06/26/17 06/26/17 06:59 18:59 Intake Total 914 Output Total 0 Balance 914 - Medications Medications: Current Medications Albuterol/Ipratropium (Duoneb 3 Mg/0.5 Mg (3 Ml) Ud) 3 ml IH [id number] [facility] Last Admin: 06/26/17 13:57 Dose: 3 ml Aspirin (Ecotrin) 81 mg PO DAILY [facility] Last Admin: 06/26/17 10:13 Dose: 81 mg Atorvastatin Calcium (Lipitor) 10 mg PO DIN [facility] Last Admin: 06/25/17 18:24 Dose: 10 mg Calcium Acetate (Phoslo) 1,334 mg PO TID [facility] Last Admin: 06/26/17 14:23 Dose: 1,334 mg Ergocalciferol (Drisdol 50,000 Intl Units Cap) 1 cap PO SAT [facility] Last Admin: 06/24/17 10:22 Dose: 1 cap Fenofibrate (Tricor) 145 mg PO DAILY [facility] Last Admin: 06/26/17 10:18 Dose: 145 mg Furosemide (Lasix) 40 mg PO BID [facility] Last Admin: 06/26/17 10:14 Dose: 40 mg Gabapentin (Neurontin) 300 mg PO DAILY [facility] PRN Reason: Protocol Last Admin: 06/26/17 10:17 Dose: Not Given Home Med (Home Med) 1 unit TOP DAILY [facility] Last Admin: 06/26/17 10:14 Dose: Not Given Home Med (Home Med) 1 unit INH BID [facility] Last Admin: 06/26/17 10:14 Dose: Not Given Hydralazine HCl (Apresoline) 20 mg PO BID [facility] Last Admin: 06/26/17 10:12 Dose: Not Given Dopamine HCl/Dextrose (Dopamine 400mg/250ml D5w) 400 mg in 250 mls @ 17.503 mls /hr IV .[id number] PRN; Protocol; 5 MCG/KG/MIN PRN Reason: TITRATE PER MD ORDER Last Titration: 06/26/17 01:00 Dose: 7 mcg/kg/min, 24.504 mls/hr Insulin Human NPH (Humulin N) 70 units SC ACD [facility] Last Admin: 06/25/17 17:48 Dose: 70 units Insulin Human NPH (Humulin N) 80 units SC ACB [facility] Last Admin: 06/26/17 07:51 Dose: 80 units Insulin Human Regular (Humulin R High) 0 units SC ACHS [facility] PRN Reason: Protocol Last Admin: 06/26/17 08:07 Dose: 4 units Latanoprost (Xalatan Opht) 1 ml OU HS [facility] Last Admin: 06/25/17 21:27 Dose: 1 ml Loratadine (Claritin) 10 mg PO HS [facility] Last Admin: 06/25/17 21:26 Dose: 10 mg Metronidazole (Metrogel Cream) 1 gm TOP DAILY [facility] Last Admin: 06/25/17 17:35 Dose: Not Given Montelukast Sodium (Singulair) 10 mg PO HS [facility] Last Admin: 06/25/17 21:27 Dose: 10 mg Nateglinide (Starlix) 120 mg PO ACD [facility] Last Admin: 06/24/17 19:11 Dose: 120 mg Nateglinide (Starlix) 60 mg PO ACL [facility] Last Admin: 06/26/17 12:00 Dose: 60 mg Oqdbc-2-Yjlo Ethyl Esters (Lovaza) 2 gm PO BID [facility] Last Admin: 06/26/17 10:15 Dose: 2 gm Ondansetron HCl (Zofran Inj) 4 mg IVP Q4H PRN PRN Reason: Nausea/Vomiting Last Admin: 06/24/17 20:18 Dose: 4 mg Pantoprazole Sodium (Protonix Ec Tab) 40 mg PO DAILY [facility] Last Admin: 06/26/17 10:17 Dose: 40 mg Pregabalin (Lyrica) 50 mg PO DAILY [facility] Last Admin: 06/26/17 10:16 Dose: Not Given Sildenafil Citrate (Revatio) 20 mg PO BID [facility] Last Admin: 06/26/17 10:17 Dose: 20 mg Tamsulosin HCl (Flomax) 0.4 mg PO DAILY [facility] Last Admin: 06/26/17 10:13 Dose: 0.4 mg Ticagrelor (Brilinta) 90 mg PO BID [facility] Last Admin: 06/26/17 10:13 Dose: 90 mg Vitamin B Complex/Vit C/Folic Acid (Nephro-Vea) 1 tab PO 0800 [facility] Last Admin: 06/26/17 08:06 Dose: 1 tab Zolpidem Tartrate (Ambien) 5 mg PO HS PRN; Protocol PRN Reason: Insomnia Last Admin: 06/25/17 22:10 Dose: 5 mg - Labs Labs: 06/25/17 05:30 06/25/17 05:30 PT 18.8 SECONDS (9.4-12.5) H 06/23/17 20:47 INR 1.63 (0.93-1.08) H 06/23/17 20:47 APTT 28.3 Seconds (25.1-36.5) 06/23/17 20:47 - Constitutional Appears: Chronically Ill - Head Exam Head Exam: ATRAUMATIC, NORMAL INSPECTION, NORMOCEPHALIC - Eye Exam Eye Exam: Normal appearance - ENT Exam ENT Exam: Mucous Membranes Dry, Normal Exam - Neck Exam Neck Exam: Normal Inspection - Respiratory Exam Respiratory Exam: Clear to Ausculation Bilateral, NORMAL BREATHING PATTERN - Cardiovascular Exam Cardiovascular Exam: Bradycardia, +S1, +S2 - GI/Abdominal Exam GI & Abdominal Exam: Soft, Normal Bowel Sounds. absent: Tenderness - Extremities Exam Extremities Exam: Full ROM, Normal Capillary Refill, Normal Inspection. absent : Joint Swelling, Pedal Edema - Back Exam Back Exam: NORMAL INSPECTION - Neurological Exam Neurological Exam: Alert, Awake, CN II-XII Intact, Normal Gait, Oriented x3 - Psychiatric Exam Psychiatric exam: Anxious, Normal Affect, Normal Mood - Skin Skin Exam: Dry, Intact, Normal Color, Warm Assessment and Plan (1) Tachy-chase syndrome Status: Acute (2) Chest pain Status: Acute (3) Renal failure Status: Acute (4) Pulmonary hypertension, moderate to severe Status: Acute (5) Shortness of breath Status: Acute - Assessment and Plan (Free Text) Plan: Labs ordered. Dopamine drip. Pt is potentially having AICD/PPM insertion per Cardio. VTE/GI prophlyaxis. Bipap q HS. Consults: Cardio - Nephro - Dr. Malcolm Pulmo - Dr. Escalera Reviewed: ECG = ABNORMAL, junctional rhythm, L axis deviation CXR = moderate cardiomegaly. mild vascular congestion Cardiac Cath = stent RCA, EF 55%, mild & distal LAD 70% stenoses w. stent insertion ECHO = EF 55%, mild concentric LVH, severe pulmonary hypertension <Diana Kessler - Last Filed: 06/26/17 17:35> Objective - Vital Signs/Intake and Output Vital Signs (last 24 hours): Temp Pulse Resp BP Pulse Ox 97.6 F 64 12 129/47 L 96 06/26/17 08:00 06/26/17 10:50 06/26/17 10:50 06/26/17 10:14 06/26/17 10:36 Intake and Output: 06/26/17 06/26/17 06:59 18:59 Intake Total 914 Output Total 0 Balance 914 - Medications Medications: Current Medications Albuterol/Ipratropium (Duoneb 3 Mg/0.5 Mg (3 Ml) Ud) 3 ml IH [id number] [facility] Last Admin: 06/26/17 13:57 Dose: 3 ml Aspirin (Ecotrin) 81 mg PO DAILY [facility] Last Admin: 06/26/17 10:13 Dose: 81 mg Atorvastatin Calcium (Lipitor) 10 mg PO DIN [facility] Last Admin: 06/25/17 18:24 Dose: 10 mg Calcium Acetate (Phoslo) 1,334 mg PO TID [facility] Last Admin: 06/26/17 14:23 Dose: 1,334 mg Ergocalciferol (Drisdol 50,000 Intl Units Cap) 1 cap PO SAT [facility] Last Admin: 06/24/17 10:22 Dose: 1 cap Fenofibrate (Tricor) 145 mg PO DAILY [facility] Last Admin: 06/26/17 10:18 Dose: 145 mg Furosemide (Lasix) 40 mg PO BID [facility] Last Admin: 06/26/17 10:14 Dose: 40 mg Gabapentin (Neurontin) 300 mg PO DAILY [facility] PRN Reason: Protocol Last Admin: 06/26/17 10:17 Dose: Not Given Home Med (Home Med) 1 unit TOP DAILY [facility] Last Admin: 06/26/17 10:14 Dose: Not Given Home Med (Home Med) 1 unit INH BID [facility] Last Admin: 06/26/17 10:14 Dose: Not Given Hydralazine HCl (Apresoline) 20 mg PO BID [facility] Last Admin: 06/26/17 10:12 Dose: Not Given Dopamine HCl/Dextrose (Dopamine 400mg/250ml D5w) 400 mg in 250 mls @ 17.503 mls /hr IV .[id number] PRN; Protocol; 5 MCG/KG/MIN PRN Reason: TITRATE PER MD ORDER Last Titration: 06/26/17 01:00 Dose: 7 mcg/kg/min, 24.504 mls/hr Insulin Human NPH (Humulin N) 70 units SC ACD [facility] Last Admin: 06/26/17 16:37 Dose: Not Given Insulin Human NPH (Humulin N) 80 units SC ACB [facility] Last Admin: 06/26/17 07:51 Dose: 80 units Insulin Human Regular (Humulin R High) 0 units SC ACHS [facility] PRN Reason: Protocol Last Admin: 06/26/17 16:37 Dose: Not Given Latanoprost (Xalatan Opht) 1 ml OU HS [facility] Last Admin: 06/25/17 21:27 Dose: 1 ml Loratadine (Claritin) 10 mg PO HS [facility] Last Admin: 06/25/17 21:26 Dose: 10 mg Metronidazole (Metrogel Cream) 1 gm TOP DAILY [facility] Last Admin: 06/26/17 15:33 Dose: Not Given Montelukast Sodium (Singulair) 10 mg PO HS [facility] Last Admin: 06/25/17 21:27 Dose: 10 mg Nateglinide (Starlix) 120 mg PO ACD [facility] Last Admin: 06/26/17 16:38 Dose: Not Given Nateglinide (Starlix) 60 mg PO ACL [facility] Last Admin: 06/26/17 12:00 Dose: 60 mg Eyxeh-5-Pemx Ethyl Esters (Lovaza) 2 gm PO BID [facility] Last Admin: 06/26/17 10:15 Dose: 2 gm Ondansetron HCl (Zofran Inj) 4 mg IVP Q4H PRN PRN Reason: Nausea/Vomiting Last Admin: 06/24/17 20:18 Dose: 4 mg Pantoprazole Sodium (Protonix Ec Tab) 40 mg PO DAILY [facility] Last Admin: 06/26/17 10:17 Dose: 40 mg Pregabalin (Lyrica) 50 mg PO DAILY [facility] Last Admin: 06/26/17 10:16 Dose: Not Given Sildenafil Citrate (Revatio) 20 mg PO BID [facility] Last Admin: 06/26/17 10:17 Dose: 20 mg Tamsulosin HCl (Flomax) 0.4 mg PO DAILY [facility] Last Admin: 06/26/17 10:13 Dose: 0.4 mg Ticagrelor (Brilinta) 90 mg PO BID [facility] Last Admin: 06/26/17 10:13 Dose: 90 mg Vitamin B Complex/Vit C/Folic Acid (Nephro-Eva) 1 tab PO 0800 [facility] Last Admin: 06/26/17 08:06 Dose: 1 tab Zolpidem Tartrate (Ambien) 5 mg PO HS PRN; Protocol PRN Reason: Insomnia Last Admin: 06/25/17 22:10 Dose: 5 mg - Labs Labs: 06/25/17 05:30 06/25/17 05:30 PT 18.8 SECONDS (9.4-12.5) H 06/23/17 20:47 INR 1.63 (0.93-1.08) H 06/23/17 20:47 APTT 28.3 Seconds (25.1-36.5) 06/23/17 20:47 Assessment and Plan - Assessment and Plan (Free Text) Plan: 52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 stents, TIA, & asthma. On 06/12, pt went for cardiac cath through R groin with new cardiac stent insertion. Pt re-admitted to [facility] with renal failure, dizziness ( secondary to hypotension), and chest pain. After becoming unresponsive, pt was found to have elevated serial tropins, NSTEMI and hypotension. Pt was transferred to ICU for elevated troponins and dopamine drip. He was discharged home on 06/14 and re-admitted on 06/16 for bradycardia & chest pain and discharged home. On 06/23/17, pt re-admitted to [facility] ER for chest pain after missing dialysis and shortness of breath related to pulmonary HTN. On 06/24/17 LOOM TUNER called for hypotension and patient was transferred to ICU/CCU for atropine and IV dopamine. Today, pt seen in CCU, eating lunch. No distress noted. Pt denies fevers, chills, nausea/vomiting, diarrhea, constipation or urinary changespt is seen and examined at bed side . agreed all above , d/d with sports specialist . will f/u .
[2017-06-26] MEDS: MetroNIDAZOLE 0.75% Cream(45 gm) TOP SCH (15:33)
--- NOTE | 2017-06-26 16:09 | CON ---
DATE: REASON FOR CONSULTATION: Followup cardiac evaluation, admitted with shortness of breath, history of recently stent placed, end-stage renal disease, on dialysis, missed dialysis yesterday with shortness of breath. BRIEF CLINICAL HISTORY: This is a 52-year-old male with past medical history significant for coronary artery disease status post multiple stent, most recently patient had a cardiac cath and stent on 06/12/2017 in mid and distal LAD, discharged home on 06/14, came in back complaining of shortness of breath, missed dialysis yesterday and since last night better. Denies any chest pain or shortness of breath or any palpitation. PAST MEDICAL HISTORY: Significant for coronary artery disease; end-stage renal disease, on dialysis; pulmonary hypertension. PREVIOUS CARDIAC WORKUP: As follows, patient had recently cardiac catheterization done on 06/12/2017 where patient was found with significant disease in LAD, mid and distal LAD, FFR was 0.8 pre-procedure and post-procedure FFR was 1.08, 2 stents were deployed in mid and distal LAD, ejection fraction was 55%, EDP was in the range of 25 to 40. Prior to that, patient had multiple stents 3 to 4 years ago in LAD and RCA in 10/2014. Repeat catheterization on 12/13/2012 that showed nonobstructive coronary artery disease. Patient had last echo dated 06/12/2017 that revealed ejection fraction 55%, RV systolic pressure 89, mild mitral regurgitation, mild pulmonary insufficiency, consistent with severe pulmonary hypertension; although an echo showed mild aortic stenosis but on cath dated 06/12/2017 no significant gradient across aortic valve noted. PAST SURGICAL HISTORY: Significant for renal failure, status post AV shunt placement in the left arm; history of bilateral eye surgery for blurring of the vision, cataract surgery on 05/29/2012; history of left eye corneal transplant, retinopathy, history of cholecystectomy and last catheterization as mentioned dated 06/12/2017. These are the past surgical history. History of end-stage renal disease, on dialysis. CURRENT MEDICATIONS: Patient is taking at home Zyrtec, Pravachol, pregabalin, Namenda, Plavix and aspirin. REVIEW OF SYSTEMS: As per HPI. PHYSICAL EXAMINATION VITAL SIGNS: Temperature afebrile, heart rate 48, blood pressure 130/47. HEENT: PERRLA. Extraocular muscles are intact. NECK: Supple. No carotid bruit or thyromegaly. CHEST: Clear to auscultation. HEART: S1 and S2 regular. ABDOMEN: Soft. EXTREMITIES: Clubbing and cyanosis negative. LABORATORY DATA: Blood workup as follows, WBC 7.5, hemoglobin 10.3, hematocrit 31.5, platelet count 144. Chemistry shows sodium 133, potassium 5.5, chloride 95, bicarbonate 26, anion gap 21, BUN 71, and creatinine 10.9, BNP 30,600. IMPRESSION: Acute decompensated congestive heart failure, no evidence of acute myocardial infarction. EKG shows junctional bradycardia. Last time patient with bradycardia, heart rate 30 because of off beta-valerie. History of recent stent placement dated 06/12/2017, 2 stents were deployed. Most recently, patient had echocardiography also on 06/12/2017 that shows pulmonary hypertension. End-stage renal disease, on dialysis; diabetic retinopathy, nephropathy and neuropathy. RECOMMENDATION: Resume back the medication. Patient was started Revatio Revatio prescription was not approved by insurance, so we will restart Revatio. Resume aspirin and Plavix. Resume other medications. Dialysis today, the patient missed the dialysis. Further recommendation depending on hospital course. We will also send P2Y12 level to see the efficiency of Plavix. We will follow with you. Thank you, Dr. Kessler for providing us the opportunity in taking care of Jason Berger. Jarred Erickson MD
--- NOTE | 2017-06-26 17:16 | PN ---
DATE: 06/26/2017 SUBJECTIVE: The patient is seen sitting in chair in the ICU. He is awake. He is alert. He is more comfortable today. He still has chest pain. More on the right side than on the left. He denies any nausea or vomiting. He denies any abdominal pain. PHYSICAL EXAMINATION: GENERAL: Middle-aged male, sitting in chair in the ICU. VITAL SIGNS: Blood pressure 129/47, heart rate 64, respiratory rate 12, temperature 97.6. HEENT: Normocephalic, atraumatic, positive pallor. NECK: Supple, no JVD. LUNGS: Bilateral equal air entry, bilateral equal expansion, no rales. CARDIAC: S1 and S2, regular rate and rhythm, no murmur, no rub. ABDOMEN: Obese, distended, soft, nontender, bowel sounds present. EXTREMITIES: Chronic stasis changes, hyperpigmentation of the skin, no edema. INTAKE AND OUTPUT: 1634/not charted. LABORATORY DATA: No new labs today. CURRENT MEDICATIONS: Ambien, Apresoline 20 p.o. b.i.d., Brilinta, Claritin, dopamine at 7 mcg/kg/min, Drisdol, DuoNeb, aspirin, Flomax, insulin, Lasix 40 p.o. b.i.d., Lipitor, Lyrica, gabapentin, PhosLo, Protonix, Revatio 20 b.i.d., Singulair, Starlix, Tricor, Zofran. ASSESSMENT: 1. Status post cardiac arrest, symptomatic bradycardia. 2. Hypotension. 3. Coronary artery disease, recent percutaneous transluminal coronary angioplasty and stent to the left anterior descending, pulmonary hypertension. 4. End-stage renal disease. 5. Anemia of chronic kidney disease. 6. [id number] diabetes mellitus. 7. History of hypertension. 8. Secondary hyperparathyroidism. PLAN: 1. Case discussed with Dr. Erickson at length. The patient remains bradycardic 48 hours after last dose of beta valerie. We will continue to monitor. Will likely need pacemaker. 2. Chest pain, more on the right side, musculoskeletal. Improved with NSAIDs. 3. Continue monitoring fingersticks. 4. Continue Revatio 20 mg b.i.d. for pulmonary hypertension. 5. ? Discontinue Lasix. 6. Dialysis today. 7. Case discussed with the patient at bedside at length. 8. Case discussed with dialysis staff. 9. Case discussed with the ICU staff. More than 35 minutes spent in the care of this critically ill patient. Eva Malcolm MD
--- NOTE | 2017-06-26 17:16 | PN ---
DATE: 06/26/2017 REASON FOR THE CONSULTATION AND FOLLOWUP: Bradycardia, on dopamine; junctional chase, status post rapid response. PHYSICAL EXAMINATION: VITAL SIGNS: Temperature afebrile; heart rate 64, on 5 mcg of dopamine; blood pressure 129/47. HEENT: PERRLA. Extraocular muscles intact. NECK: Supple. No carotid bruit or thyromegaly. CHEST: Clear to auscultation. HEART: S1 and S2 regular. ABDOMEN: Soft. EXTREMITIES: Clubbing and cyanosis negative. LABORATORY DATA: Blood workup as follows: WBC 9.1, hemoglobin 10.7, hematocrit 34.4, platelet count 143. Chemistry shows sodium 139, potassium 4.7, chloride 94, bicarbonate 32, anion gap 15, BUN , creatinine 8.7. IMPRESSION: Junctional bradycardia 48 hours post beta-valerie was given, still patient is in junctional bradycardia, heart rate 30, on dopamine. While on dopamine, the heart rate 60. Most likely, sick sinus syndrome. History of coronary artery disease, diabetes, hypertension, hyperlipidemia, status post recent angioplasty, status post rapid response of the bradycardia in dialysis unit. RECOMMENDATIONS: Continue dopamine for now. Beta-valerie is on hold for 48 hours. We will give the benefit of doubt to see whether the patient's heart rate recover and if the heart rate does not recover, then we will put the pacemaker tomorrow, keep n.p.o. after 12:00 midnight for pacemaker tomorrow. Informed the family. Yesterday, P2Y12 was tested, which is the sensitivity for Plavix. The patient was at home on Brilinta, but while at here he started Plavix again and it was at 244, so Plavix was discontinued and Brilinta was started. Continue aspirin. Continue Brilinta. Continue dopamine as mentioned above. We will follow with you. Keep n.p.o. for pacemaker tomorrow. Jarred Erickson MD
[2017-06-26 19:03] LABS: BASO # 0.03 K/mm3 (0.0-2.0); BASO % 0.4 % (0.0-3.0); EOS # 0.1 (0.0-0.7); EOS % 1.7 % (1.5-5.0); GRAN # 5.47 (1.4-6.5); GRAN % 78.3 % (50.0-68.0); HEMOGLOBIN 9.7 g/dL (14.0-18.0); LYMPH # 0.8 (1.2-3.4); MEAN CELL VOLUME 91.4 fl (80.0-105.0); MEAN CORPUSCULAR HEMOGLOBIN 29.7 pg (25.0-35.0); MEAN CORPUSCULAR HGB CONC 32.4 g/dl (31.0-37.0); MEAN PLATELET VOLUME 12.1 fl (7.0-11.0); MONO # 0.5 (0.1-0.6); MONO % 7.6 % (1.0-6.0); RBC 3.27 10^6/uL (3.5-6.1); RED CELL DISTRIBUTION WIDTH 16.2 % (11.5-14.5)
[2017-06-26 19:07] LABS: ALB/GLOB RATIO 0.9 (1.1-1.8); ALBUMIN 3.8 g/dL (3.0-4.8); CALCIUM 9.4 mg/dL (8.4-10.5)
--- NOTE | 2017-06-26 21:07 | PN ---
DATE: PULMONARY PROGRESS NOTE REFERRING PHYSICIAN: Diana Kessler MD SUBJECTIVE: He just finished up his dialysis, feels well, having dinner. Night was unremarkable. Tolerated BiPAP well. Fully awake and alert. Still bradycardic. Heart rate varies between 15 and16. No nausea. No vomiting. No diarrhea. Does have a leg pain. OBJECTIVE: GENERAL: In no acute distress. VITAL SIGNS: Temperature is 98, heart rate 61, respiratory rate is 18, blood pressure is 120/46. HEENT: Moist mucous membrane. Crowded airway. NECK: Supple. No JVD. LUNGS: Have fair airflow with rhonchi. HEART: S1 and S2. ABDOMEN: Soft, nontender. No organomegaly. EXTREMITIES: There is no edema. NEUROLOGICAL: Awake and alert. Follows simple command. MEDICATIONS He is on Ambien 5 mg at bedtime p.r.n., hydralazine 20 mg twice a day, Brilinta 90 mg twice a day, Claritin 10 mg daily, IV dopamine, also vitamin D 50,000 units weekly, DuoNeb every 6 hours, Ecotrin 81 mg daily, Flomax 0.4 mg daily, insulin coverage, Lasix 40 mg twice a day, Lipitor 10 mg daily, Lovaza 2 g twice a day, Lyrica 50 mg daily, metronidazole 1 g topical to the affected area, Nephro-Eva vitamins daily, gabapentin 300 mg daily, PhosLo three times a day, Protonix 40 mg daily, Revatio 20 mg twice a day, Singulair 10 mg daily, Starlix 60 mg and 120 mg before meals daily, TriCor 145 mg daily, Zofran p.r.n. basis. LABORATORY DATA: Shows hemoglobin 9.7, hematocrit 29.9, WBC 7.0, platelet is 145. Sodium 137, potassium 3.4, chloride 93, bicarbonate 29, BUN is 33, creatinine 5.9, glucose 120, calcium is 9.4, phosphorus is 3.6, magnesium 2.1, AST 311, ALT 383, alkaline phosphatase is 59, albumin is 3.8. IMPRESSION AND PLAN: Status post cardiopulmonary arrest, bradycardia and hypotensive, coronary artery disease status post coronary stent, sleep apnea syndrome, chronic obstructive lung disease, diabetes, peripheral neuropathy, diabetic retinopathy, nephropathy dialysis dependent. Pulmonary point of view, doing okay. Continue BiPAP while sleeping, inhale bronchodilator, on dopamine being followed by Cardiology, possible pacemaker placement. Avoid all medicine causing bradycardic especially beta-valerie, calcium channel valerie. Fall precaution. Continue therapy. Follow up labs in the morning and we will follow with you. Jarred Escalera MD
[2017-06-27] MEDS: Albuterol-Ipratrop 3 mg / 0.5 (3 ml) UD IH SCH ×4 (01:41→20:20)
[2017-06-27 06:57] LABS: BASO # 0.02 K/mm3 (0.0-2.0); BASO % 0.3 % (0.0-3.0); EOS # 0.2 (0.0-0.7); EOS % 2.5 % (1.5-5.0); GRAN # 4.4 (1.4-6.5); GRAN % 72.8 % (50.0-68.0); HEMOGLOBIN 9.9 g/dL (14.0-18.0); MEAN CELL VOLUME 93.8 fl (80.0-105.0); MEAN CORPUSCULAR HEMOGLOBIN 29.3 pg (25.0-35.0); MEAN CORPUSCULAR HGB CONC 31.2 g/dl (31.0-37.0); MEAN PLATELET VOLUME 12.8 fl (7.0-11.0); MONO # 0.5 (0.1-0.6); MONO % 7.4 % (1.0-6.0); RBC 3.38 10^6/uL (3.5-6.1); RED CELL DISTRIBUTION WIDTH 16.4 % (11.5-14.5); WHITE BLOOD COUNT 6.1 10^3/ul (4.5-11.0)
[2017-06-27] MEDS ORDERED: Lidocaine 2% Inj (20ml) ONE (07:11)
[2017-06-27 07:22] LABS: INR 1.41 (0.93-1.08); PROTHROMBIN TIME 16.3 SECONDS (9.4-12.5)
[2017-06-27] MEDS ORDERED: Glucagon Recombinant 1 mg Inj IV STA (07:50)
[2017-06-27] MEDS ORDERED: Glucagon Recombinant 1 mg Inj SC STA (07:53)
[2017-06-27 08:27] LABS: ALB/GLOB RATIO 0.9 (1.1-1.8); ALBUMIN 3.4 g/dL (3.0-4.8); CALCIUM 8.8 mg/dL (8.4-10.5)
[2017-06-27] MEDS: Dextrose 50% SYRINGE Inj (50 ml) ONE ×2 (08:52→14:11)
[2017-06-27] MEDS: Vancomycin 500 mg Inj ONE ×2 (09:21→14:33)
[2017-06-27] MEDS: Midazolam 2 MG/2 ML VIAL ONE ×4 (09:37→14:33)
[2017-06-27] MEDS ORDERED: Midazolam 2 MG/2 ML VIAL ONE (09:49)
[2017-06-27] MEDS ORDERED: Iodixanol 320 MG/ML 100 ML BOTTLE IV ONE ×2 (09:51→09:52)
--- NOTE | 2017-06-27 11:37 | CARD ---
APPROVED REPORT HISTORY The Patient is a 52 year-old male with a history of ESRD on HD, admitted with SSS, Symptomatic Bradycardia s/p Rapid response times two for symptomatic bradycaria PROCEDURES Insertion Dual Chamber Pacemaker INDICATIONS SSS Symptomatic Candido on Dopamine S/p Rapid respose B/c of Bradicardia Junctional Bradycaria on Dopamine in CCU CONSCIOUS SEDATION AGENTS Versed Fentanyl IMPLANTED DEVICES Medtronic V lead...[id number] ....Active lead,MRI safr Medtronic Atrial Lead...[id number]...Active lead,MRI safe Medtronic Pulse generator ADVISA MRI OPERATIVE NOTE The patient was brought to the Cardiac Catheterization Laboratory in a fasting state and was prepped and draped in a sterile manner. The subcutaneous pocket was formed via blunt dissection. Percutaneous venous access was achieved and an introducer sheath was inserted into the Lt Subclavian vein. Through the introducer sheaths, the atrial and ventricular lead wires were positioned in the right atrial apppendage and right ventricular apex respectively, utilizing fluorscopic guidance. The atrial and ventricular leads were advanced over the wires under fluoroscopic guidance and positioned in the right atria and right ventricle respectively. Capturing and sensing thresholds were verified. Pace maker place on right side of chest through right subcalvian vein as pt has dialysis shunt on left arm THE ATRIAL ELECTRODE PARAMETERS P WAVE 2.8 THRESHOLD0.75 RESISTANCE 524 THE VENTRICULAR ELECTRODE PARAMETERS R WAVE 5.5 THRESHOLD0.5 RESISTANCE 675 The atrial and ventricular leads were then secured using 2.0 silk sutures. The subcutaneous pocket was irrigated with Betadine.The atrial and ventricular leads were attached to the appropriate receptacles on the pulse generator and set screws firmly tightened to insure adequate contact and stability. The leads and pulse generator were placed into the subcutaneous pocket. Sharp and sponge counts were confirmed to be correct. At this time the pocket was closed subcutaneously with a 2.0 vicryl and the skin was closed with a 4.0 Vicryl .The operative site was dressed in sterile fashion. The patient tolerated the procedure well and was transferred tothe floor in stable condition. COMPLICATIONS The patient tolerated the procedure well and there were no complications associated with the procedure. CONCLUSION Successful implantation of Dual chamber Pacemaker, MRI safe, (DDDR) CC; Drs. Kessler/ Miguel Malcolm / Buddy.
--- NOTE | 2017-06-27 11:38 | CPOSTOP ---
DATE: 06/27/2017 CARDIOVASCULAR PROCEDURE IN WIRER HELPER (IMPLANTATION OF PERMANENT PACEMAKER). OPERATING PHYSICIAN: Jarred Erickson MD. LINE THERAPIST: NEGRO Branch, medical instrument technician. TYPE OF ANESTHESIA: Moderate conscious sedation. Total dose given 300 mg of Versed, 100 of fentanyl, periodically started at 1 mg of Versed and 50 of fentanyl. PRE-PROCEDURE DIAGNOSES: Sick sinus syndrome, symptomatic bradycardia, junctional bradycardia, on dopamine, symptomatic, status post rapid response. PROCEDURE PERFORMED: Implantation of dual-chamber pacemaker, permanent, MRI safe. FINDINGS: The patient underwent dual-chamber pacemaker, Medtronic, MRI safe. FINAL DIAGNOSIS: Sick sinus syndrome. POST PROCEDURE CONDITION: The patient is stable. VASCULAR ACCESS SITE: Right subclavian. CLOSURE DEVICE: Dressing applied. RADIATION DOSE: 62774.4 milligray unit. FLUORO TIME: 10.9 minutes. RECOMMENDATIONS: Discontinue dopamine. Continue rest of the medication. Possible discharge home tomorrow. Closely observe. Jarred Erickson MD RACHEL
--- NOTE | 2017-06-27 11:55 | CP.CCUPN ---
<Tad Méndez - Last Filed: 06/27/17 11:40> CCU Subjective - Physician Review Events Since Last Encounter (Free Text): 06/27/17 11:41 Patient found to be hypoglycemic this morning with blood glucose of 48. Subjective (Free Text): 06/26/17 12:13 Patient seen and examined at bedside in no acute distress without any current complaints. Admits to nausea mostly secondary to hypoglycemia. Denies fevers, chills, chest pain, shortness of breath, body aches, headache, abdominal pain, nausea, vomiting, diarrhea. 06/27/17 11:41 Critical Care Time Spent (in minutes): 35 CCU Objective - Vital Signs / Intake & Output Vital Signs (Last 4 hours): Vital Signs Temp Pulse Resp BP Pulse Ox 06/27/17 08:25 56 L 17 100 06/27/17 08:24 58 L 17 100 06/27/17 08:23 58 L 21 100 06/27/17 08:22 57 L 16 100 06/27/17 08:21 57 L 18 100 06/27/17 08:20 58 L 20 100 06/27/17 08:19 59 L 22 100 06/27/17 08:18 59 L 27 H 100 06/27/17 08:17 59 L 17 100 06/27/17 08:16 58 L 19 100 06/27/17 08:15 125/50 L 06/27/17 08:14 57 L 31 H 100 06/27/17 08:13 57 L 10 L 100 06/27/17 08:12 56 L 17 100 06/27/17 08:11 60 21 100 06/27/17 08:10 60 24 100 06/27/17 08:09 59 L 18 100 06/27/17 08:08 58 L 19 06/27/17 08:07 58 L 19 06/27/17 08:06 58 L 18 06/27/17 08:05 58 L 19 06/27/17 08:04 59 L 16 06/27/17 08:03 56 L 19 06/27/17 08:02 56 L 17 06/27/17 08:01 56 L 16 06/27/17 08:00 97.5 F L 57 L 16 101/34 L 100 06/27/17 07:59 56 L 31 H 06/27/17 07:58 55 L 17 06/27/17 07:57 53 L 15 06/27/17 07:56 54 L 15 06/27/17 07:55 53 L 14 06/27/17 07:54 53 L 15 06/27/17 07:53 53 L 15 06/27/17 07:52 55 L 15 06/27/17 07:51 54 L 14 06/27/17 07:50 53 L 14 06/27/17 07:49 54 L 15 06/27/17 07:48 55 L 15 06/27/17 07:47 108/39 L 06/27/17 07:46 54 L 14 06/27/17 07:45 54 L 19 06/27/17 07:44 55 L 17 06/27/17 07:43 53 L 15 06/27/17 07:42 110/45 L 06/27/17 07:41 57 L 16 Intake and Output (Last 8hrs): Intake & Output 06/26/17 06/27/17 06/27/17 22:59 06:59 14:59 Intake Total 788 Output Total 0 Balance 788 Intake: IV 288 dopamine 288 Oral 500 Output: Urine 0 Urine, Voided 0 Other: # Bowel Movements 0 - Physical Exam Head: Positive for: Atraumatic, Normocephalic Pupils: Positive for: PERRL Extroacular Muscles: Positive for: EOMI Conjunctiva: Positive for: Normal Mouth: Positive for: Moist Mucous Membranes Neck: Positive for: Normal Range of Motion Respiratory/Chest: Positive for: Good Air Exchange, Tachypneic (mild), Other ( crackles bilaterally.). Negative for: Respiratory Distress, Accessory Muscle Use Cardiovascular: Positive for: Regular Rate and Rhythm, Normal S1, S2. Negative for: Murmurs Abdomen: Negative for: Tenderness, Distention, Peritoneal Signs Back: Positive for: Normal Inspection Upper Extremity: Positive for: Normal Inspection. Negative for: Cyanosis, Edema Lower Extremity: Positive for: Normal Inspection. Negative for: Edema Neurological: Positive for: GCS=15, CN II-XII Intact, Speech Normal Skin: Positive for: Warm, Dry, Normal Color. Negative for: Rashes Psychiatric: Positive for: Alert, Oriented x 3, Normal Insight, Normal Concentration - Medications Active Medications: Active Medications Generic Name Dose Route Start Last Admin Trade Name Freq PRN Reason Stop Dose Admin Albuterol/Ipratropium 3 ml 06/24/17 20:00 06/27/17 07:28 Duoneb 3 Mg/0.5 Mg (3 Ml) Ud IH 3 ml [id number] CARLOS Administration Aspirin 81 mg 06/24/17 10:00 06/26/17 10:13 Ecotrin PO 81 mg DAILY CARLOS Administration Atorvastatin Calcium 10 mg 06/24/17 17:00 06/25/17 18:24 Lipitor PO 10 mg DIN CARLOS Administration Calcium Acetate 1,334 mg 06/24/17 10:00 06/26/17 14:23 Phoslo PO 1,334 mg TID CARLOS Administration Ergocalciferol 1 cap 06/24/17 10:00 06/24/17 10:22 Drisdol 50,000 Intl Units Cap PO 1 cap SAT CARLOS Administration Fenofibrate 145 mg 06/25/17 10:01 06/26/17 10:18 Tricor PO 145 mg DAILY CARLOS Administration Furosemide 40 mg 06/24/17 10:00 06/26/17 10:14 Lasix PO 40 mg BID CARLOS Administration Gabapentin 300 mg 06/26/17 22:00 06/26/17 22:25 Neurontin PO 300 mg 2200 CARLOS Administration Protocol Home Med 1 unit 06/24/17 10:00 06/26/17 10:14 Home Med TOP Not Given DAILY CARLOS Home Med 1 unit 06/24/17 10:00 06/26/17 10:14 Home Med INH Not Given BID CARLOS Hydralazine HCl 20 mg 06/24/17 10:36 06/26/17 20:24 Apresoline PO Not Given BID CARLOS Insulin Human NPH 70 units 06/24/17 16:30 06/26/17 16:37 Humulin N SC Not Given ACD CARLOS Insulin Human NPH 80 units 06/24/17 08:30 06/26/17 07:51 Humulin N SC 80 units ACB CARLOS Administration Insulin Human Regular 0 units 06/25/17 22:00 06/26/17 16:37 Humulin R High SC Not Given ACHS [facility] Protocol Latanoprost 1 ml 06/24/17 22:00 06/25/17 21:27 Xalatan Opht OU 1 ml HS CARLOS Administration Loratadine 10 mg 06/24/17 22:00 06/26/17 22:25 Claritin PO 10 mg HS CARLOS Administration Metronidazole 1 gm 06/24/17 10:00 06/26/17 15:33 Metrogel Cream TOP Not Given DAILY CARLOS Montelukast Sodium 10 mg 06/24/17 22:00 06/26/17 22:25 Singulair PO 10 mg HS CARLOS Administration Nateglinide 120 mg 06/24/17 16:30 06/26/17 16:38 Starlix PO Not Given ACD CARLOS Nateglinide 60 mg 06/24/17 11:30 06/26/17 12:00 Starlix PO 60 mg ACL CARLOS Administration Xidaa-4-Lhic Ethyl Esters 2 gm 06/24/17 10:00 06/26/17 10:15 Lovaza PO 2 gm BID CARLOS Administration Ondansetron HCl 4 mg 06/27/17 08:30 Zofran Inj IM Q4H PRN Nausea/Vomiting Pantoprazole Sodium 40 mg 06/25/17 10:07 06/26/17 10:17 Protonix Ec Tab PO 40 mg DAILY CARLOS Administration Pregabalin 50 mg 06/25/17 10:00 06/26/17 10:16 Lyrica PO Not Given DAILY CARLOS Sildenafil Citrate 20 mg 06/24/17 18:00 06/26/17 10:17 Revatio PO 20 mg BID CARLOS Administration Tamsulosin HCl 0.4 mg 06/24/17 10:00 06/26/17 10:13 Flomax PO 0.4 mg DAILY CARLOS Administration Ticagrelor 90 mg 06/25/17 18:00 06/26/17 10:13 Brilinta PO 90 mg BID CARLOS Administration Vitamin B Complex/Vit C/Folic Acid 1 tab 06/25/17 08:00 06/26/17 08:06 Nephro-Genet PO 1 tab 0800 CARLOS Administration Zolpidem Tartrate 5 mg 06/24/17 08:20 06/26/17 22:49 Ambien PO 5 mg HS PRN Administration Insomnia Protocol - Patient Studies Lab Studies: Microbiology Studies 06/24/17 16:00 MRSA Culture (Admit) - Final Naris MRSA NOT DETECTED Lab Studies 06/27/17 06/27/17 06/27/17 Range/Units 11:26 08:42 08:21 WBC (4.5-11.0) 10^3/ul RBC (3.5-6.1) 10^6/uL Hgb (14.0-18.0) g/dL Hct (42.0-52.0) % MCV (80.0-105.0) fl MCH (25.0-35.0) pg MCHC (31.0-37.0) g/dl RDW (11.5-14.5) % Plt Count (120.0-450.0) 10^3/uL MPV (7.0-11.0) fl Gran % (50.0-68.0) % Lymph % (Auto) (22.0-35.0) % Barren % (Auto) (1.0-6.0) % Eos % (Auto) (1.5-5.0) % Baso % (Auto) (0.0-3.0) % Gran # (1.4-6.5) Lymph # (Auto) (1.2-3.4) Barren # (Auto) (0.1-0.6) Eos # (Auto) (0.0-0.7) Baso # (Auto) (0.0-2.0) K/mm3 PT (9.4-12.5) SECONDS INR (0.93-1.08) Sodium (132-148) mmol/L Potassium (3.6-5.0) mmol/L Chloride (98-107) mmol/L Carbon Dioxide (21-33) mmol/L Anion Gap (10-20) BUN (7-21) mg/dL Creatinine (0.8-1.5) mg/dl Est GFR ( Amer) Est GFR (Non-Af Amer) POC Glucose (mg/dL) 145 H 53 L 41 L (65-110) mg/dL Random Glucose (70-110) mg/dL Calcium (8.4-10.5) mg/dL Phosphorus (2.5-4.5) mg/dL Magnesium (1.7-2.2) mg/dL Total Bilirubin (0.2-1.3) mg/dL AST (17-59) U/L ALT (7-56) U/L Alkaline Phosphatase (38-126) U/L Total Protein (5.8-8.3) g/dL Albumin (3.0-4.8) g/dL Globulin gm/dL Albumin/Globulin Ratio (1.1-1.8) 06/27/17 06/27/17 06/27/17 Range/Units 07:47 07:24 05:50 WBC (4.5-11.0) 10^3/ul RBC (3.5-6.1) 10^6/uL Hgb (14.0-18.0) g/dL Hct (42.0-52.0) % MCV (80.0-105.0) fl MCH (25.0-35.0) pg MCHC (31.0-37.0) g/dl RDW (11.5-14.5) % Plt Count (120.0-450.0) 10^3/uL MPV (7.0-11.0) fl Gran % (50.0-68.0) % Lymph % (Auto) (22.0-35.0) % Barren % (Auto) (1.0-6.0) % Eos % (Auto) (1.5-5.0) % Baso % (Auto) (0.0-3.0) % Gran # (1.4-6.5) Lymph # (Auto) (1.2-3.4) Barren # (Auto) (0.1-0.6) Eos # (Auto) (0.0-0.7) Baso # (Auto) (0.0-2.0) K/mm3 PT (9.4-12.5) SECONDS INR (0.93-1.08) Sodium 137 (132-148) mmol/L Potassium 4.2 (3.6-5.0) mmol/L Chloride 96 L (98-107) mmol/L Carbon Dioxide 28 (21-33) mmol/L Anion Gap 17 (10-20) BUN 34 H (7-21) mg/dL Creatinine 7.2 H (0.8-1.5) mg/dl Est GFR ( Amer) 10 Est GFR (Non-Af Amer) 8 POC Glucose (mg/dL) 64 L 43 L (65-110) mg/dL Random Glucose 48 L* D (70-110) mg/dL Calcium 8.8 (8.4-10.5) mg/dL Phosphorus (2.5-4.5) mg/dL Magnesium (1.7-2.2) mg/dL Total Bilirubin 0.7 (0.2-1.3) mg/dL AST 231 H D (17-59) U/L ALT 285 H (7-56) U/L Alkaline Phosphatase 40 (38-126) U/L Total Protein 7.3 (5.8-8.3) g/dL Albumin 3.4 (3.0-4.8) g/dL Globulin 3.9 gm/dL Albumin/Globulin Ratio 0.9 L (1.1-1.8) 06/27/17 06/27/17 06/26/17 Range/Units 05:50 05:50 21:40 WBC 6.1 (4.5-11.0) 10^3/ul RBC 3.38 L (3.5-6.1) 10^6/uL Hgb 9.9 L (14.0-18.0) g/dL Hct 31.7 L (42.0-52.0) % MCV 93.8 (80.0-105.0) fl MCH 29.3 (25.0-35.0) pg MCHC 31.2 (31.0-37.0) g/dl RDW 16.4 H (11.5-14.5) % Plt Count 139 (120.0-450.0) 10^3/uL MPV 12.8 H (7.0-11.0) fl Gran % 72.8 H (50.0-68.0) % Lymph % (Auto) 17.0 L (22.0-35.0) % Barren % (Auto) 7.4 H (1.0-6.0) % Eos % (Auto) 2.5 (1.5-5.0) % Baso % (Auto) 0.3 (0.0-3.0) % Gran # 4.40 (1.4-6.5) Lymph # (Auto) 1.0 L (1.2-3.4) Barren # (Auto) 0.5 (0.1-0.6) Eos # (Auto) 0.2 (0.0-0.7) Baso # (Auto) 0.02 (0.0-2.0) K/mm3 PT 16.3 H (9.4-12.5) SECONDS INR 1.41 H (0.93-1.08) Sodium (132-148) mmol/L Potassium (3.6-5.0) mmol/L Chloride (98-107) mmol/L Carbon Dioxide (21-33) mmol/L Anion Gap (10-20) BUN (7-21) mg/dL Creatinine (0.8-1.5) mg/dl Est GFR ( Amer) Est GFR (Non-Af Amer) POC Glucose (mg/dL) 138 H (65-110) mg/dL Random Glucose (70-110) mg/dL Calcium (8.4-10.5) mg/dL Phosphorus (2.5-4.5) mg/dL Magnesium (1.7-2.2) mg/dL Total Bilirubin (0.2-1.3) mg/dL AST (17-59) U/L ALT (7-56) U/L Alkaline Phosphatase (38-126) U/L Total Protein (5.8-8.3) g/dL Albumin (3.0-4.8) g/dL Globulin gm/dL Albumin/Globulin Ratio (1.1-1.8) 06/26/17 06/26/17 06/26/17 Range/Units 18:10 18:10 16:01 WBC 7.0 D (4.5-11.0) 10^3/ul RBC 3.27 L (3.5-6.1) 10^6/uL Hgb 9.7 L (14.0-18.0) g/dL Hct 29.9 L (42.0-52.0) % MCV 91.4 D (80.0-105.0) fl MCH 29.7 (25.0-35.0) pg MCHC 32.4 (31.0-37.0) g/dl RDW 16.2 H (11.5-14.5) % Plt Count 145 (120.0-450.0) 10^3/uL MPV 12.1 H (7.0-11.0) fl Gran % 78.3 H (50.0-68.0) % Lymph % (Auto) 12.0 L (22.0-35.0) % Barren % (Auto) 7.6 H (1.0-6.0) % Eos % (Auto) 1.7 (1.5-5.0) % Baso % (Auto) 0.4 (0.0-3.0) % Gran # 5.47 (1.4-6.5) Lymph # (Auto) 0.8 L (1.2-3.4) Barren # (Auto) 0.5 (0.1-0.6) Eos # (Auto) 0.1 (0.0-0.7) Baso # (Auto) 0.03 (0.0-2.0) K/mm3 PT (9.4-12.5) SECONDS INR (0.93-1.08) Sodium 137 (132-148) mmol/L Potassium 3.4 L (3.6-5.0) mmol/L Chloride 93 L (98-107) mmol/L Carbon Dioxide 29 (21-33) mmol/L Anion Gap 18 (10-20) BUN 33 H (7-21) mg/dL Creatinine 5.9 H (0.8-1.5) mg/dl Est GFR ( Amer) 12 Est GFR (Non-Af Amer) 10 POC Glucose (mg/dL) 160 H (65-110) mg/dL Random Glucose 120 H (70-110) mg/dL Calcium 9.4 (8.4-10.5) mg/dL Phosphorus 3.6 (2.5-4.5) mg/dL Magnesium 2.1 (1.7-2.2) mg/dL Total Bilirubin 0.8 (0.2-1.3) mg/dL AST 311 H D (17-59) U/L ALT 383 H (7-56) U/L Alkaline Phosphatase 59 (38-126) U/L Total Protein 8.2 (5.8-8.3) g/dL Albumin 3.8 (3.0-4.8) g/dL Globulin 4.4 gm/dL Albumin/Globulin Ratio 0.9 L (1.1-1.8) 06/26/17 Range/Units 11:43 WBC (4.5-11.0) 10^3/ul RBC (3.5-6.1) 10^6/uL Hgb (14.0-18.0) g/dL Hct (42.0-52.0) % MCV (80.0-105.0) fl MCH (25.0-35.0) pg MCHC (31.0-37.0) g/dl RDW (11.5-14.5) % Plt Count (120.0-450.0) 10^3/uL MPV (7.0-11.0) fl Gran % (50.0-68.0) % Lymph % (Auto) (22.0-35.0) % Barren % (Auto) (1.0-6.0) % Eos % (Auto) (1.5-5.0) % Baso % (Auto) (0.0-3.0) % Gran # (1.4-6.5) Lymph # (Auto) (1.2-3.4) Barren # (Auto) (0.1-0.6) Eos # (Auto) (0.0-0.7) Baso # (Auto) (0.0-2.0) K/mm3 PT (9.4-12.5) SECONDS INR (0.93-1.08) Sodium (132-148) mmol/L Potassium (3.6-5.0) mmol/L Chloride (98-107) mmol/L Carbon Dioxide (21-33) mmol/L Anion Gap (10-20) BUN (7-21) mg/dL Creatinine (0.8-1.5) mg/dl Est GFR ( Amer) Est GFR (Non-Af Amer) POC Glucose (mg/dL) 150 H (65-110) mg/dL Random Glucose (70-110) mg/dL Calcium (8.4-10.5) mg/dL Phosphorus (2.5-4.5) mg/dL Magnesium (1.7-2.2) mg/dL Total Bilirubin (0.2-1.3) mg/dL AST (17-59) U/L ALT (7-56) U/L Alkaline Phosphatase (38-126) U/L Total Protein (5.8-8.3) g/dL Albumin (3.0-4.8) g/dL Globulin gm/dL Albumin/Globulin Ratio (1.1-1.8) Laboratory Results - last 24 hr 06/26/17 06/26/17 06/26/17 11:43 16:01 18:10 WBC 7.0 D RBC 3.27 L Hgb 9.7 L Hct 29.9 L MCV 91.4 D MCH 29.7 MCHC 32.4 RDW 16.2 H Plt Count 145 MPV 12.1 H Gran % 78.3 H Lymph % (Auto) 12.0 L Barren % (Auto) 7.6 H Eos % (Auto) 1.7 Baso % (Auto) 0.4 Gran # 5.47 Lymph # (Auto) 0.8 L Barren # (Auto) 0.5 Eos # (Auto) 0.1 Baso # (Auto) 0.03 PT INR Sodium Potassium Chloride Carbon Dioxide Anion Gap BUN Creatinine Est GFR ( Amer) Est GFR (Non-Af Amer) POC Glucose (mg/dL) 150 H 160 H Random Glucose Calcium Phosphorus Magnesium Total Bilirubin AST ALT Alkaline Phosphatase Total Protein Albumin Globulin Albumin/Globulin Ratio 06/26/17 06/26/17 06/27/17 18:10 21:40 05:50 WBC 6.1 RBC 3.38 L Hgb 9.9 L Hct 31.7 L MCV 93.8 MCH 29.3 MCHC 31.2 RDW 16.4 H Plt Count 139 MPV 12.8 H Gran % 72.8 H Lymph % (Auto) 17.0 L Barren % (Auto) 7.4 H Eos % (Auto) 2.5 Baso % (Auto) 0.3 Gran # 4.40 Lymph # (Auto) 1.0 L Barren # (Auto) 0.5 Eos # (Auto) 0.2 Baso # (Auto) 0.02 PT INR Sodium 137 Potassium 3.4 L Chloride 93 L Carbon Dioxide 29 Anion Gap 18 BUN 33 H Creatinine 5.9 H Est GFR ( Amer) 12 Est GFR (Non-Af Amer) 10 POC Glucose (mg/dL) 138 H Random Glucose 120 H Calcium 9.4 Phosphorus 3.6 Magnesium 2.1 Total Bilirubin 0.8 AST 311 H D ALT 383 H Alkaline Phosphatase 59 Total Protein 8.2 Albumin 3.8 Globulin 4.4 Albumin/Globulin Ratio 0.9 L 06/27/17 06/27/17 06/27/17 05:50 05:50 07:24 WBC RBC Hgb Hct MCV MCH MCHC RDW Plt Count MPV Gran % Lymph % (Auto) Barren % (Auto) Eos % (Auto) Baso % (Auto) Gran # Lymph # (Auto) Barren # (Auto) Eos # (Auto) Baso # (Auto) PT 16.3 H INR 1.41 H Sodium 137 Potassium 4.2 Chloride 96 L Carbon Dioxide 28 Anion Gap 17 BUN 34 H Creatinine 7.2 H Est GFR ( Amer) 10 Est GFR (Non-Af Amer) 8 POC Glucose (mg/dL) 43 L Random Glucose 48 L* D Calcium 8.8 Phosphorus Magnesium Total Bilirubin 0.7 AST 231 H D ALT 285 H Alkaline Phosphatase 40 Total Protein 7.3 Albumin 3.4 Globulin 3.9 Albumin/Globulin Ratio 0.9 L 06/27/17 06/27/17 06/27/17 07:47 08:21 08:42 WBC RBC Hgb Hct MCV MCH MCHC RDW Plt Count MPV Gran % Lymph % (Auto) Barren % (Auto) Eos % (Auto) Baso % (Auto) Gran # Lymph # (Auto) Barren # (Auto) Eos # (Auto) Baso # (Auto) PT INR Sodium Potassium Chloride Carbon Dioxide Anion Gap BUN Creatinine Est GFR ( Amer) Est GFR (Non-Af Amer) POC Glucose (mg/dL) 64 L 41 L 53 L Random Glucose Calcium Phosphorus Magnesium Total Bilirubin AST ALT Alkaline Phosphatase Total Protein Albumin Globulin Albumin/Globulin Ratio 06/27/17 11:26 WBC RBC Hgb Hct MCV MCH MCHC RDW Plt Count MPV Gran % Lymph % (Auto) Barren % (Auto) Eos % (Auto) Baso % (Auto) Gran # Lymph # (Auto) Barren # (Auto) Eos # (Auto) Baso # (Auto) PT INR Sodium Potassium Chloride Carbon Dioxide Anion Gap BUN Creatinine Est GFR ( Amer) Est GFR (Non-Af Amer) POC Glucose (mg/dL) 145 H Random Glucose Calcium Phosphorus Magnesium Total Bilirubin AST ALT Alkaline Phosphatase Total Protein Albumin Globulin Albumin/Globulin Ratio EKG/Cardiology Studies: Cardiology / EKG Studies 06/27/17 11:20 ELECTROCARDIOGRAM Stat Comment: Reason For Exam: s/p ppm PERFORMING PHYSICIAN/PROVIDER:: Jarred Erickson Fingerstick Blood Sugar Results: 150 Review of Systems - Constitutional Constitutional: absent: Fever, Chills, Sweats - EENT Eyes: UNREMARKABLE. absent: Blurred Vision, Change in Vision Nose/Mouth/Throat: absent: Nasal Obstruction - Cardiovascular Cardiovascular: UNREMARKABLE. absent: Chest Pain, Dyspnea - Respiratory Respiratory: UNREMARKABLE. absent: Cough, Dyspnea, Wheezing - Gastrointestinal Gastrointestinal: Nausea. absent: Diarrhea, Vomiting - Genitourinary Genitourinary: absent: Dysuria - Musculoskeletal Musculoskeletal: UNREMARKABLE - Integumentary Integumentary: UNREMARKABLE - Neurological Neurological: absent: Dizziness, Numbness - Psychiatric Psychiatric: UNREMARKABLE - Endocrine Endocrine: UNREMARKABLE - Hematologic/Lymphatic Hematologic: UNREMARKABLE Critical Care Progress Note - Nutrition Nutrition: Nutrition Category Date Time Status Renal Diet [DIET] Diets 06/24/17 Lunch Ordered Assessment/Plan - Assessment and Plan (Free Text) Assessment: 52 M past medical history of COPD, asthma, CO2 retention and hypoventilation syndrome, GERD, NIDDM, ESRD HD MWF, hypertension, Cardiac catheterization with stent placement 05/2017, TIA, CHF, left corneal transplant, renal retinopathy, admitted to hospital for chest pain. Patients sulfide head operator recently decided patient was too sensitive to Toprol XL and discontinued the medication from office standpoint however patient received this medication when admitted and resultantly experienced an episode of bradycardia and hypotension 83/37. REHAB THERAPIST was called patient was given 2 rounds of atropine, patient was then transferred to ICU and started on dopamine drip. Due to patient still experiencing bradycardia with dopamine drip, patient had pacemaker placed today. Plan: Neurologic -AAOx3, responsive. -Continue with gabapentin and lyrica Cardiovascular -Monitor bradycardia -Pacemaker has been placed by Dr. Stephen -Continue with aspirin, statin, furosemide, hydralazine, -Continue lovaza -Continue with brillinta Respiratory -Continue with [facility] -Continue revatio for recently discovered Pulmonary hypertension -Pulmonology consult; recs appreciated -BiPAP encouraged; patient refuses Renal/Fluids -Hemodialysis scheduled for MWF -continue with nephro-genet and phoslo -Nephrology consult; recs appreciated Gastrointestinal/Nutrition -Renal diet Endocrine -NPH insulin placed on hold -Continue with fingersticks q4h -monitor glucose levels closely -continue flomax Hematologic -H&H stable continue to monitor <Adam Linares - Last Filed: 06/27/17 15:34> CCU Objective - Vital Signs / Intake & Output Vital Signs (Last 4 hours): Vital Signs Pulse Resp BP Pulse Ox 06/27/17 15:18 60 21 100 06/27/17 15:17 60 31 H 100 06/27/17 15:16 58 L 26 H 100 06/27/17 15:15 60 24 100 06/27/17 15:14 60 16 100 06/27/17 15:13 107/44 L 06/27/17 15:12 60 29 H 06/27/17 15:11 60 17 06/27/17 15:10 61 59 H 06/27/17 15:09 60 20 06/27/17 15:08 60 22 06/27/17 15:07 63 12 06/27/17 15:06 61 22 06/27/17 15:05 60 22 06/27/17 15:04 54 L 17 06/27/17 15:03 61 19 06/27/17 15:02 61 16 06/27/17 15:01 61 23 06/27/17 15:00 60 20 06/27/17 14:59 60 21 06/27/17 14:58 60 35 H 06/27/17 14:57 60 15 06/27/17 14:56 60 20 06/27/17 14:55 60 20 06/27/17 14:54 60 15 06/27/17 14:53 60 21 06/27/17 14:52 60 29 H 06/27/17 14:51 61 17 06/27/17 14:50 61 20 06/27/17 14:49 61 26 H 06/27/17 14:48 61 14 06/27/17 14:47 62 19 06/27/17 14:46 61 18 06/27/17 14:45 61 14 06/27/17 14:44 61 19 06/27/17 14:43 62 24 06/27/17 14:42 63 32 H 06/27/17 14:41 60 20 06/27/17 14:40 60 18 06/27/17 14:39 61 20 06/27/17 14:38 61 28 H 06/27/17 14:37 63 30 H 06/27/17 14:36 62 23 06/27/17 14:35 73 51 H 06/27/17 14:34 61 19 06/27/17 14:33 60 23 06/27/17 14:32 60 23 06/27/17 14:31 60 20 06/27/17 14:30 60 19 06/27/17 14:22 151/53 H - Medications Active Medications: Active Medications Generic Name Dose Route Start Last Admin Trade Name Katelynn PRN Reason Stop Dose Admin Albuterol/Ipratropium 3 ml 06/24/17 20:00 06/27/17 13:18 Duoneb 3 Mg/0.5 Mg (3 Ml) Ud IH 3 ml [id number] CARLOS Administration Aspirin 81 mg 06/24/17 10:00 06/27/17 14:20 Ecotrin PO 81 mg DAILY CARLOS Administration Atorvastatin Calcium 10 mg 06/24/17 17:00 06/25/17 18:24 Lipitor PO 10 mg DIN CARLOS Administration Calcium Acetate 1,334 mg 06/24/17 10:00 06/27/17 14:23 Phoslo PO 1,334 mg TID CARLOS Administration Ergocalciferol 1 cap 06/24/17 10:00 06/24/17 10:22 Drisdol 50,000 Intl Units Cap PO 1 cap SAT CARLOS Administration Fenofibrate 145 mg 06/25/17 10:01 06/27/17 14:23 Tricor PO 145 mg DAILY CARLOS Administration Furosemide 40 mg 06/24/17 10:00 06/27/17 14:22 Lasix PO 40 mg BID CARLOS Administration Gabapentin 300 mg 06/26/17 22:00 06/26/17 22:25 Neurontin PO 300 mg 2200 CARLOS Administration Protocol Home Med 1 unit 06/24/17 10:00 06/27/17 14:24 Home Med TOP Not Given DAILY CARLOS Home Med 1 unit 06/24/17 10:00 06/27/17 14:32 Home Med INH Not Given BID CARLOS Hydralazine HCl 20 mg 06/24/17 10:36 06/27/17 14:10 Apresoline PO Not Given BID CARLOS Insulin Human NPH 70 units 06/24/17 16:30 06/26/17 16:37 Humulin N SC Not Given ACD CARLOS Insulin Human NPH 80 units 06/24/17 08:30 06/27/17 14:11 Humulin N SC Not Given ACB CARLOS Insulin Human Regular 0 units 06/25/17 22:00 06/27/17 14:12 Humulin R High SC Not Given A[facility]S [facility] Protocol Latanoprost 1 ml 06/24/17 22:00 06/25/17 21:27 Xalatan Opht OU 1 ml HS CARLOS Administration Loratadine 10 mg 06/24/17 22:00 06/26/17 22:25 Claritin PO 10 mg HS CARLOS Administration Metronidazole 1 gm 06/24/17 10:00 06/27/17 14:18 Metrogel Cream TOP Not Given DAILY CARLOS Montelukast Sodium 10 mg 06/24/17 22:00 06/26/17 22:25 Singulair PO 10 mg HS CARLOS Administration Nateglinide 120 mg 06/24/17 16:30 06/27/17 14:29 Starlix PO 60 mg ACD CARLOS Administration Nateglinide 60 mg 06/24/17 11:30 06/27/17 14:29 Starlix PO 60 mg ACL CARLOS Administration Xxiyl-3-Nswd Ethyl Esters 2 gm 06/24/17 10:00 06/27/17 14:20 Lovaza PO 2 gm BID CARLOS Administration Ondansetron HCl 4 mg 06/27/17 08:30 Zofran Inj IM Q4H PRN Nausea/Vomiting Pantoprazole Sodium 40 mg 06/25/17 10:07 06/27/17 14:21 Protonix Ec Tab PO 40 mg DAILY CARLOS Administration Pregabalin 50 mg 06/25/17 10:00 06/27/17 14:22 Lyrica PO 50 mg DAILY CARLOS Administration Sildenafil Citrate 20 mg 06/24/17 18:00 06/27/17 14:28 Revatio PO 20 mg BID CARLOS Administration Tamsulosin HCl 0.4 mg 06/24/17 10:00 06/27/17 14:21 Flomax PO 0.4 mg DAILY CARLOS Administration Ticagrelor 90 mg 06/25/17 18:00 06/27/17 14:20 Brilinta PO 90 mg BID CARLOS Administration Vitamin B Complex/Vit C/Folic Acid 1 tab 06/25/17 08:00 06/27/17 14:21 Nephro-Genet PO 1 tab 0800 CARLOS Administration Zolpidem Tartrate 5 mg 06/24/17 08:20 06/26/17 22:49 Ambien PO 5 mg HS PRN Administration Insomnia Protocol - Patient Studies Lab Studies: Microbiology Studies 06/24/17 16:00 MRSA Culture (Admit) - Final Naris MRSA NOT DETECTED Lab Studies 06/27/17 06/27/17 06/27/17 Range/Units 11:26 08:42 08:21 WBC (4.5-11.0) 10^3/ul RBC (3.5-6.1) 10^6/uL Hgb (14.0-18.0) g/dL Hct (42.0-52.0) % MCV (80.0-105.0) fl MCH (25.0-35.0) pg MCHC (31.0-37.0) g/dl RDW (11.5-14.5) % Plt Count (120.0-450.0) 10^3/uL MPV (7.0-11.0) fl Gran % (50.0-68.0) % Lymph % (Auto) (22.0-35.0) % Barren % (Auto) (1.0-6.0) % Eos % (Auto) (1.5-5.0) % Baso % (Auto) (0.0-3.0) % Gran # (1.4-6.5) Lymph # (Auto) (1.2-3.4) Barren # (Auto) (0.1-0.6) Eos # (Auto) (0.0-0.7) Baso # (Auto) (0.0-2.0) K/mm3 PT (9.4-12.5) SECONDS INR (0.93-1.08) Sodium (132-148) mmol/L Potassium (3.6-5.0) mmol/L Chloride (98-107) mmol/L Carbon Dioxide (21-33) mmol/L Anion Gap (10-20) BUN (7-21) mg/dL Creatinine (0.8-1.5) mg/dl Est GFR ( Amer) Est GFR (Non-Af Amer) POC Glucose (mg/dL) 145 H 53 L 41 L (65-110) mg/dL Random Glucose (70-110) mg/dL Calcium (8.4-10.5) mg/dL Phosphorus (2.5-4.5) mg/dL Magnesium (1.7-2.2) mg/dL Total Bilirubin (0.2-1.3) mg/dL AST (17-59) U/L ALT (7-56) U/L Alkaline Phosphatase (38-126) U/L Total Protein (5.8-8.3) g/dL Albumin (3.0-4.8) g/dL Globulin gm/dL Albumin/Globulin Ratio (1.1-1.8) 06/27/17 06/27/17 06/27/17 Range/Units 07:47 07:24 05:50 WBC (4.5-11.0) 10^3/ul RBC (3.5-6.1) 10^6/uL Hgb (14.0-18.0) g/dL Hct (42.0-52.0) % MCV (80.0-105.0) fl MCH (25.0-35.0) pg MCHC (31.0-37.0) g/dl RDW (11.5-14.5) % Plt Count (120.0-450.0) 10^3/uL MPV (7.0-11.0) fl Gran % (50.0-68.0) % Lymph % (Auto) (22.0-35.0) % Barren % (Auto) (1.0-6.0) % Eos % (Auto) (1.5-5.0) % Baso % (Auto) (0.0-3.0) % Gran # (1.4-6.5) Lymph # (Auto) (1.2-3.4) Barren # (Auto) (0.1-0.6) Eos # (Auto) (0.0-0.7) Baso # (Auto) (0.0-2.0) K/mm3 PT (9.4-12.5) SECONDS INR (0.93-1.08) Sodium 137 (132-148) mmol/L Potassium 4.2 (3.6-5.0) mmol/L Chloride 96 L (98-107) mmol/L Carbon Dioxide 28 (21-33) mmol/L Anion Gap 17 (10-20) BUN 34 H (7-21) mg/dL Creatinine 7.2 H (0.8-1.5) mg/dl Est GFR ( Amer) 10 Est GFR (Non-Af Amer) 8 POC Glucose (mg/dL) 64 L 43 L (65-110) mg/dL Random Glucose 48 L* D (70-110) mg/dL Calcium 8.8 (8.4-10.5) mg/dL Phosphorus (2.5-4.5) mg/dL Magnesium (1.7-2.2) mg/dL Total Bilirubin 0.7 (0.2-1.3) mg/dL AST 231 H D (17-59) U/L ALT 285 H (7-56) U/L Alkaline Phosphatase 40 (38-126) U/L Total Protein 7.3 (5.8-8.3) g/dL Albumin 3.4 (3.0-4.8) g/dL Globulin 3.9 gm/dL Albumin/Globulin Ratio 0.9 L (1.1-1.8) 06/27/17 06/27/17 06/26/17 Range/Units 05:50 05:50 21:40 WBC 6.1 (4.5-11.0) 10^3/ul RBC 3.38 L (3.5-6.1) 10^6/uL Hgb 9.9 L (14.0-18.0) g/dL Hct 31.7 L (42.0-52.0) % MCV 93.8 (80.0-105.0) fl MCH 29.3 (25.0-35.0) pg MCHC 31.2 (31.0-37.0) g/dl RDW 16.4 H (11.5-14.5) % Plt Count 139 (120.0-450.0) 10^3/uL MPV 12.8 H (7.0-11.0) fl Gran % 72.8 H (50.0-68.0) % Lymph % (Auto) 17.0 L (22.0-35.0) % Barren % (Auto) 7.4 H (1.0-6.0) % Eos % (Auto) 2.5 (1.5-5.0) % Baso % (Auto) 0.3 (0.0-3.0) % Gran # 4.40 (1.4-6.5) Lymph # (Auto) 1.0 L (1.2-3.4) Barren # (Auto) 0.5 (0.1-0.6) Eos # (Auto) 0.2 (0.0-0.7) Baso # (Auto) 0.02 (0.0-2.0) K/mm3 PT 16.3 H (9.4-12.5) SECONDS INR 1.41 H (0.93-1.08) Sodium (132-148) mmol/L Potassium (3.6-5.0) mmol/L Chloride (98-107) mmol/L Carbon Dioxide (21-33) mmol/L Anion Gap (10-20) BUN (7-21) mg/dL Creatinine (0.8-1.5) mg/dl Est GFR ( Amer) Est GFR (Non-Af Amer) POC Glucose (mg/dL) 138 H (65-110) mg/dL Random Glucose (70-110) mg/dL Calcium (8.4-10.5) mg/dL Phosphorus (2.5-4.5) mg/dL Magnesium (1.7-2.2) mg/dL Total Bilirubin (0.2-1.3) mg/dL AST (17-59) U/L ALT (7-56) U/L Alkaline Phosphatase (38-126) U/L Total Protein (5.8-8.3) g/dL Albumin (3.0-4.8) g/dL Globulin gm/dL Albumin/Globulin Ratio (1.1-1.8) 06/26/17 06/26/17 06/26/17 Range/Units 18:10 18:10 16:01 WBC 7.0 D (4.5-11.0) 10^3/ul RBC 3.27 L (3.5-6.1) 10^6/uL Hgb 9.7 L (14.0-18.0) g/dL Hct 29.9 L (42.0-52.0) % MCV 91.4 D (80.0-105.0) fl MCH 29.7 (25.0-35.0) pg MCHC 32.4 (31.0-37.0) g/dl RDW 16.2 H (11.5-14.5) % Plt Count 145 (120.0-450.0) 10^3/uL MPV 12.1 H (7.0-11.0) fl Gran % 78.3 H (50.0-68.0) % Lymph % (Auto) 12.0 L (22.0-35.0) % Barren % (Auto) 7.6 H (1.0-6.0) % Eos % (Auto) 1.7 (1.5-5.0) % Baso % (Auto) 0.4 (0.0-3.0) % Gran # 5.47 (1.4-6.5) Lymph # (Auto) 0.8 L (1.2-3.4) Barren # (Auto) 0.5 (0.1-0.6) Eos # (Auto) 0.1 (0.0-0.7) Baso # (Auto) 0.03 (0.0-2.0) K/mm3 PT (9.4-12.5) SECONDS INR (0.93-1.08) Sodium 137 (132-148) mmol/L Potassium 3.4 L (3.6-5.0) mmol/L Chloride 93 L (98-107) mmol/L Carbon Dioxide 29 (21-33) mmol/L Anion Gap 18 (10-20) BUN 33 H (7-21) mg/dL Creatinine 5.9 H (0.8-1.5) mg/dl Est GFR ( Amer) 12 Est GFR (Non-Af Amer) 10 POC Glucose (mg/dL) 160 H (65-110) mg/dL Random Glucose 120 H (70-110) mg/dL Calcium 9.4 (8.4-10.5) mg/dL Phosphorus 3.6 (2.5-4.5) mg/dL Magnesium 2.1 (1.7-2.2) mg/dL Total Bilirubin 0.8 (0.2-1.3) mg/dL AST 311 H D (17-59) U/L ALT 383 H (7-56) U/L Alkaline Phosphatase 59 (38-126) U/L Total Protein 8.2 (5.8-8.3) g/dL Albumin 3.8 (3.0-4.8) g/dL Globulin 4.4 gm/dL Albumin/Globulin Ratio 0.9 L (1.1-1.8) Laboratory Results - last 24 hr 06/26/17 06/26/17 06/26/17 16:01 18:10 18:10 WBC 7.0 D RBC 3.27 L Hgb 9.7 L Hct 29.9 L MCV 91.4 D MCH 29.7 MCHC 32.4 RDW 16.2 H Plt Count 145 MPV 12.1 H Gran % 78.3 H Lymph % (Auto) 12.0 L Barren % (Auto) 7.6 H Eos % (Auto) 1.7 Baso % (Auto) 0.4 Gran # 5.47 Lymph # (Auto) 0.8 L Barren # (Auto) 0.5 Eos # (Auto) 0.1 Baso # (Auto) 0.03 PT INR Sodium 137 Potassium 3.4 L Chloride 93 L Carbon Dioxide 29 Anion Gap 18 BUN 33 H Creatinine 5.9 H Est GFR ( Amer) 12 Est GFR (Non-Af Amer) 10 POC Glucose (mg/dL) 160 H Random Glucose 120 H Calcium 9.4 Phosphorus 3.6 Magnesium 2.1 Total Bilirubin 0.8 AST 311 H D ALT 383 H Alkaline Phosphatase 59 Total Protein 8.2 Albumin 3.8 Globulin 4.4 Albumin/Globulin Ratio 0.9 L 06/26/17 06/27/17 06/27/17 21:40 05:50 05:50 WBC 6.1 RBC 3.38 L Hgb 9.9 L Hct 31.7 L MCV 93.8 MCH 29.3 MCHC 31.2 RDW 16.4 H Plt Count 139 MPV 12.8 H Gran % 72.8 H Lymph % (Auto) 17.0 L Barren % (Auto) 7.4 H Eos % (Auto) 2.5 Baso % (Auto) 0.3 Gran # 4.40 Lymph # (Auto) 1.0 L Barren # (Auto) 0.5 Eos # (Auto) 0.2 Baso # (Auto) 0.02 PT 16.3 H INR 1.41 H Sodium Potassium Chloride Carbon Dioxide Anion Gap BUN Creatinine Est GFR ( Amer) Est GFR (Non-Af Amer) POC Glucose (mg/dL) 138 H Random Glucose Calcium Phosphorus Magnesium Total Bilirubin AST ALT Alkaline Phosphatase Total Protein Albumin Globulin Albumin/Globulin Ratio 06/27/17 06/27/17 06/27/17 05:50 07:24 07:47 WBC RBC Hgb Hct MCV MCH MCHC RDW Plt Count MPV Gran % Lymph % (Auto) Barren % (Auto) Eos % (Auto) Baso % (Auto) Gran # Lymph # (Auto) Barren # (Auto) Eos # (Auto) Baso # (Auto) PT INR Sodium 137 Potassium 4.2 Chloride 96 L Carbon Dioxide 28 Anion Gap 17 BUN 34 H Creatinine 7.2 H Est GFR ( Amer) 10 Est GFR (Non-Af Amer) 8 POC Glucose (mg/dL) 43 L 64 L Random Glucose 48 L* D Calcium 8.8 Phosphorus Magnesium Total Bilirubin 0.7 AST 231 H D ALT 285 H Alkaline Phosphatase 40 Total Protein 7.3 Albumin 3.4 Globulin 3.9 Albumin/Globulin Ratio 0.9 L 06/27/17 06/27/17 06/27/17 08:21 08:42 11:26 WBC RBC Hgb Hct MCV MCH MCHC RDW Plt Count MPV Gran % Lymph % (Auto) Barren % (Auto) Eos % (Auto) Baso % (Auto) Gran # Lymph # (Auto) Barren # (Auto) Eos # (Auto) Baso # (Auto) PT INR Sodium Potassium Chloride Carbon Dioxide Anion Gap BUN Creatinine Est GFR ( Amer) Est GFR (Non-Af Amer) POC Glucose (mg/dL) 41 L 53 L 145 H Random Glucose Calcium Phosphorus Magnesium Total Bilirubin AST ALT Alkaline Phosphatase Total Protein Albumin Globulin Albumin/Globulin Ratio EKG/Cardiology Studies: Cardiology / EKG Studies 06/27/17 11:20 ELECTROCARDIOGRAM Stat Comment: Reason For Exam: s/p ppm PERFORMING PHYSICIAN/PROVIDER:: Jarred Erickson 06/28/17 07:00 ELECTROCARDIOGRAM Routine Comment: S/p PPM Reason For Exam: CAD PRE OP:: N Does Patient Have a Pacemaker?: No Critical Care Progress Note - Nutrition Nutrition: Nutrition Category Date Time Status Renal Diet [DIET] Diets 06/24/17 Lunch Ordered Attending/Attestation - Attestation I have personally seen and examined this patient.: Yes I have fully participated in the care of the patient.: Yes I have reviewed all pertinent clinical information: Yes Notes (Text): 06/27/17 15:24 52 yo male with AVN rhythm, bradycardia with resulting hemodynamics compromise, now s/p PM with anabaptist of hemodynamic stability. Dopamine is off. HD, maintain euvolemia, euglycemia and normothermia, 02sat>90% ccm time 40 min
--- NOTE | 2017-06-27 11:57 | RAD ---
HISTORY: Post Pacemaker, R/o pneumothorax COMPARISON: 06/23/2017 FINDINGS: LUNGS: There is a new right-sided dual lead pacemaker. There is no evidence of pneumothorax PLEURA: No significant pleural effusion identified, no pneumothorax apparent. CARDIOVASCULAR: Cardiomegaly with mild vascular congestion OSSEOUS STRUCTURES: No significant abnormalities. VISUALIZED UPPER ABDOMEN: Normal. OTHER FINDINGS: None. IMPRESSION: New right-sided pacemaker. No evidence of pneumothorax
[2017-06-27] MEDS: Insulin Human NPH 1 UNITS/0.01 ML SC SCH (14:11)
[2017-06-27] MEDS: Insulin Reg-HIGH-Coverage SC SCH ×4 (14:11→22:06)
[2017-06-27] MEDS: MetroNIDAZOLE 0.75% Cream(45 gm) TOP SCH (14:18)
[2017-06-27] MEDS: Omega-3-Acid Ethyl Esters 1 GM Cap PO SCH ×3 (14:19→18:36)
[2017-06-27] MEDS: Pantoprazole 40 mg EC Tab PO SCH (14:21)
[2017-06-27] MEDS: Multivitamin Vitamin B Complex (Nephro-Vite) Tab PO SCH (14:21)
[2017-06-27] MEDS: Sildenafil 20 MG TAB PO SCH ×4 (14:23→18:49)
[2017-06-27] MEDS: VOLTAREN GEL TOP SCH (14:24)
--- NOTE | 2017-06-27 14:24 | CARD ---
APPROVED REPORT EKG Measurement Heart [id number] <Conclusion> Electronic ventricular pacemaker
--- NOTE | 2017-06-27 16:36 | PN ---
DATE: SUBJECTIVE: The patient is currently seen sleeping in bed. He is in CCU bed 5. He is just back from having an AV sequential permanent pacemaker placed. Heart rate remains in the 60s. The patient appears to be hemodynamically stable. He tolerated yesterday's dialysis with removal of 3 liters of fluid. MEDICATIONS: Medication list reviewed. The patient is currently on Ambien, Apresoline, Brilinta, Claritin, vitamin D, DuoNeb, Ecotrin, Flomax, insulin, Lasix, Lipitor, Lovaza, Lyrica, Metrogel, Nephro-Eva, Neurontin, PhosLo, Revatio, Protonix, Singulair, Starlix, TriCor, Xalatan eyedrops, and Zofran p.r.n. OBJECTIVE: INTAKE/OUTPUT: Intake 788, output 3000 mL with dialysis. VITAL SIGNS: Blood pressure presently is 125/50. Heart rate is 61. Respiratory rate is 17 with a pulse ox of 100%. The patient is afebrile, and temperature 97.5. HEENT: The patient's eyes are closed as he is sleeping. NECK: No neck vein distention. CHEST: Clear to auscultation and percussion. No rales, rhonchi or wheezing. CARDIAC: Positive permanent pacemaker. S1, S2 appear normal. Positive aortic stenosis, aortic insufficiency, tricuspid regurgitation, mitral regurgitation. ABDOMEN: Obese. Nondistended. Bowel sounds normal. No rebound or guarding. EXTREMITIES: Show no lower extremity edema. LABORATORY DATA AND IMAGING STUDIES: CBC: Today, white blood cell count 6.1, hemoglobin stable at 9.9, platelet count is 139,000. Coags: PT 16.3 with an INR of 1.41. Chemistries: Today, electrolytes are normal. BUN 34, creatinine of 7.2. Glucose on last check was 145. Calcium is 8.8. Last phosphorus was 3.6. Mild elevation of his liver enzymes. Magnesium level was 2.1. Microbiology: All cultures are negative. ASSESSMENT: 1. Status post near cardiac arrest secondary to symptomatic bradycardia. The patient did not respond to several days of infusion of dopamine. Hence, a permanent pacemaker was placed today. Currently, heart rate is in the low 60 range and the patient appears to be hemodynamically stable. 2. Status post hypotension secondary to symptomatic bradycardia. 3. History of atherosclerotic heart disease, status post percutaneous transluminal coronary angioplasty and stent. 4. History of pulmonary hypertension, controlled on medication. 5. History of end-stage renal disease. The patient will continue Monday, Monday, Monday dialysis. Tomorrow's dialysis can be in the dialysis unit on the first floor. The patient is transferred out of the CCU. 6. History of anemia secondary to chronic kidney disease. The patient will continue erythropoietin and iron supplements on dialysis. 7. History of [id number] diabetes mellitus. The patient has had intermittent hypoglycemia. Medications have been adjusted. 8. History of secondary hyperparathyroidism. Calcium and phosphorus levels are normal on last check. The patient will continue binder therapy and a renal diet. PLAN: 1. Discussed with staff in the CCU. Discussed with Dr. Erickson. In light of his bradycardia, agree with placement of permanent pacemaker. 2. Continue to monitor his sugars closely. 3. Continue medicines for pulmonary hypertension. 4. From a Renal standpoint, Lasix can be discontinued unless the patient is making large amounts of urine. 5. Hemodialysis tomorrow can be in the dialysis unit assuming that the patient is transferred out of the CCU. 6. Case discussed with the patient's family in detail. Greater than 35 minutes spent in the care of this patient. Toy Martinez MD MTDRicardo
[2017-06-27] MEDS ORDERED: Morphine 4 mg/ml ISec IVP STA ×2 (21:32→23:05)
[2017-06-27] MEDS: Latanoprost 2.5 ml Opht Soln OU SCH (22:05)
[2017-06-28] MEDS: Albuterol-Ipratrop 3 mg / 0.5 (3 ml) UD IH SCH ×4 (02:00→19:45)
--- NOTE | 2017-06-28 02:29 | PN ---
DATE: SUBJECTIVE: Patient is seen and examined at the bedside, looking comfortable. Mother was sitting on the bedside. Neighbor was helping patient for dinner. Status post pacemaker, on the right side of the chest. It is a permanent AV sequential pacemaker. Heart rate is now in 60s. Patient is hemodynamically stable. No nausea, vomiting, or diarrhea. No chest pain or palpitation. No headache, no dizziness. No hematuria or hematochezia. PHYSICAL EXAMINATION: VITAL SIGNS: Blood pressure 120/50, heart rate 61, respiratory rate 17, pulse oximetry 100%. HEENT: Head, normocephalic and atraumatic. Eyes, PERRLA. Extraocular muscles intact. Conjunctivae clear. Nose, patent. Mucous membranes moist. NECK: Supple. No carotid bruit. No JVD or thyromegaly. CHEST: Bilaterally symmetrical. HEART: S1 and S2 positive. LUNGS: Clear to auscultation. ABDOMEN: Soft. Bowel sounds are present. No organomegaly. EXTREMITIES: No edema. No cyanosis. NEUROLOGIC: Patient is awake and alert, moving all 4 extremities with no focal deficit. LABORATORY DATA: White blood cells 6.1, hemoglobin 9.9, platelets 139,000. INR 1.41. BUN 34, creatinine 7.2. Glucose 145, calcium 8.8, magnesium 2.1. MEDICATIONS: Ambien, hydralazine, Brilinta, Claritin, vitamin D, DuoNeb, Flomax, insulin, Lipitor, Lovaza, Lyrica, Nephro-Eva, Neurontin, PhosLo, Revatio, Protonix, Singulair, Starlix, TriCor, eyedrops, Zofran. ASSESSMENT AND PLAN: Mr. Jason Berger is a 52-year-old male with severe anemia, status post blood transfusions multiple times; history of insulin-dependent uncontrolled diabetes mellitus; history of nephropathy, retinopathy, neuropathy; status post cardiopulmonary arrest, bradycardia, hypotension, coronary artery disease, status post coronary stents, sleep apnea syndrome; getting dialysis 3 times a week. Continue bilevel positive airway pressure while asleep. Inhaled bronchodilators. Was on dopamine drip, now got pacemaker. Still will avoid medication causing bradycardia, especially beta-blockers and calcium channel blockers. Fall precautions. Discussion done with the patient, patient's mother, and neighbor. Gastrointestinal and deep venous thrombosis prophylaxis. Repeat labs. We will follow up. Diana Kessler MD RACHEL
[2017-06-28] MEDS ORDERED: Morphine 4 mg/ml ISec IVP STA ×2 (05:20→10:50)
--- NOTE | 2017-06-28 06:15 | PN ---
DATE: PULMONARY PROGRESS NOTE REFERRING PHYSICIAN: Diana Kessler MD SUBJECTIVE: Status post dual chamber cardiac pacemaker placement. Night was unremarkable. Tolerated BiPAP well. No headache, no rhinitis. No chest pain. No nausea. No vomiting. No diarrhea. Trace leg swelling. OBJECTIVE GENERAL: In no acute distress. VITAL SIGNS: Temperature is 98, heart rate 56, respiratory rate is 16, blood pressure is 125/50. HEENT: Moist mucous membrane. Crowded airway. NECK: Supple. No JVD. LUNGS: Have a fair airflow with few rhonchi. CHEST: Pacemaker site looks okay. HEART: S1 and S2. ABDOMEN: Soft, nontender. No organomegaly. EXTREMITIES: Trace edema. NEUROLOGICAL: Sleepy, arousable. MEDICATIONS He is on Ambien 5 mg at bedtime p.r.n., hydralazine 20 mg twice a day, Brilinta 90 mg twice a day, Claritin 10 mg daily, dopamine IV, vitamin D 50,000 unit was given, DuoNeb every 6 hours, Ecotrin 81 mg daily, Flomax 0.4 mg daily, insulin coverage, Lasix 40 mg twice a day, Lipitor 10 mg daily, [place]-3 mg twice a day, Lyrica 50 mg daily, metronidazole 1 g p.o. daily, Nephro-vitamins daily, Neurontin 300 mg daily, PhosLo with meals, Protonix 40 mg daily, Revatio 20 mg twice a day, Singulair 10 mg daily, Starlix 60 mg a.c.l. and 120 mg a.c.d., TriCor 145 mg daily, Zofran on p.r.n. basis. LABORATORY DATA: Shows hemoglobin 9.9, hematocrit 31.7, WBC 6.1, platelet count is 139. INR 1.41. Sodium 137, potassium 4.2, chloride 96, bicarbonate 28, BUN 34, creatinine 7.2, glucose 53, calcium 8.8, AST 231, ALT 285, alkaline phosphatase is 40, albumin is 3.4. His MRI screen is negative. IMPRESSION AND PLAN: Cardiac arrhythmia, bradycardia, status post cardiopulmonary arrest, presently status post cardiac pacemaker, history of coronary artery disease, history of coronary stent, pulmonary hypertension, chronic obstructive lung disease, obstructive sleep apnea syndrome, diabetes with retinopathy, nephropathy, peripheral neuropathy. Case discussed with Dr. Dre. We will continue to encourage BiPAP use at night and bronchodilator. Keep head at 45 degrees. Gastric prophylaxis. BiPAP while sleeping. Thank you and we will follow with you. Jarred Escalera MD
[2017-06-28 06:53] LABS: BASO # 0.02 K/mm3 (0.0-2.0); BASO % 0.4 % (0.0-3.0); EOS # 0.2 (0.0-0.7); EOS % 3.2 % (1.5-5.0); GRAN # 3.9 (1.4-6.5); GRAN % 72.7 % (50.0-68.0); HEMOGLOBIN 9.3 g/dL (14.0-18.0); LYMPH # 0.8 (1.2-3.4); LYMPH % 14.6 % (22.0-35.0); MEAN CELL VOLUME 94.3 fl (80.0-105.0); MEAN CORPUSCULAR HEMOGLOBIN 29.3 pg (25.0-35.0); MEAN CORPUSCULAR HGB CONC 31.1 g/dl (31.0-37.0); MEAN PLATELET VOLUME 12.1 fl (7.0-11.0); MONO # 0.5 (0.1-0.6); MONO % 9.1 % (1.0-6.0); RBC 3.17 10^6/uL (3.5-6.1); RED CELL DISTRIBUTION WIDTH 16.9 % (11.5-14.5); WHITE BLOOD COUNT 5.4 10^3/ul (4.5-11.0)
[2017-06-28 07:53] LABS: ALB/GLOB RATIO 0.9 (1.1-1.8); ALBUMIN 3.7 g/dL (3.0-4.8); CALCIUM 8.8 mg/dL (8.4-10.5)
[2017-06-28] MEDS: Insulin Reg-HIGH-Coverage SC SCH ×4 (08:00→21:41)
[2017-06-28] MEDS: Multivitamin Vitamin B Complex (Nephro-Vite) Tab PO SCH (09:00)
[2017-06-28] MEDS: Omega-3-Acid Ethyl Esters 1 GM Cap PO SCH ×2 (09:34→17:20)
[2017-06-28] MEDS: Pantoprazole 40 mg EC Tab PO SCH (09:34)
[2017-06-28] MEDS ORDERED: Benzocaine/Menthol (Cepacol) Lozenge MT PRN (09:42)
[2017-06-28] MEDS: VOLTAREN GEL TOP SCH (09:51)
[2017-06-28] MEDS: Sildenafil 20 MG TAB PO SCH ×2 (11:00→17:41)
--- NOTE | 2017-06-28 11:18 | CARD ---
APPROVED REPORT EKG Measurement Heart [id number] <Conclusion> Electronic ventricular pacemaker
[2017-06-28] MEDS: MetroNIDAZOLE 0.75% Cream(45 gm) TOP SCH (11:46)
--- NOTE | 2017-06-28 11:55 | CP.CCUPN ---
<Tad Méndez - Last Filed: 06/28/17 12:07> CCU Subjective - Physician Review Subjective (Free Text): 06/26/17 12:13 Patient seen and examined at bedside in no acute distress without any current complaints. Admits to nausea mostly secondary to hypoglycemia. Denies fevers, chills, chest pain, shortness of breath, body aches, headache, abdominal pain, nausea, vomiting, diarrhea. 06/27/17 11:41 06/28/17 12:13 Patient seen and examined at bedside in no acute distress. Patient states he has slight discomfort at side of pacemaker placement. Denies fevers, chills, nausea, vomiting, diarrhea, abdominal pain, back pain, shortness of breath. Critical Care Time Spent (in minutes): 40 CCU Objective - Vital Signs / Intake & Output Vital Signs (Last 4 hours): Vital Signs Pulse Resp BP Pulse Ox 06/28/17 09:59 68 98/64 L 06/28/17 09:51 98/64 L 06/28/17 09:49 68 98/64 L 06/28/17 08:15 60 11 L 100 06/28/17 08:14 60 14 98 06/28/17 08:13 60 10 L 79 L 06/28/17 08:12 60 20 85 L 06/28/17 08:11 61 14 92 L 06/28/17 08:10 61 15 95 06/28/17 08:09 60 13 100 06/28/17 08:08 61 12 100 06/28/17 08:07 60 16 100 06/28/17 08:06 62 14 100 06/28/17 08:05 61 18 100 06/28/17 08:04 60 13 78 L 06/28/17 08:03 60 20 97 06/28/17 08:02 61 15 96 06/28/17 08:01 63 11 L 98 06/28/17 08:00 125/57 L 06/28/17 07:59 63 19 97 06/28/17 07:58 71 13 98 06/28/17 07:57 65 25 H 98 06/28/17 07:56 71 29 H 99 06/28/17 07:55 69 42 H 99 06/28/17 07:54 64 91 H 98 06/28/17 07:53 60 15 97 06/28/17 07:52 60 17 98 06/28/17 07:51 60 21 97 Intake and Output (Last 8hrs): Intake & Output 06/27/17 06/28/17 06/28/17 22:59 06:59 14:59 Intake Total 850 200 Balance 850 200 Intake: Oral 850 200 - Physical Exam Head: Positive for: Atraumatic, Normocephalic Pupils: Positive for: PERRL Extroacular Muscles: Positive for: EOMI Conjunctiva: Positive for: Normal Mouth: Positive for: Moist Mucous Membranes Neck: Positive for: Normal Range of Motion Respiratory/Chest: Positive for: Good Air Exchange, Tachypneic (mild), Other ( crackles bilaterally.). Negative for: Respiratory Distress, Accessory Muscle Use Cardiovascular: Positive for: Regular Rate and Rhythm, Normal S1, S2. Negative for: Murmurs Abdomen: Negative for: Tenderness, Distention, Peritoneal Signs Back: Positive for: Normal Inspection Upper Extremity: Positive for: Normal Inspection. Negative for: Cyanosis, Edema Lower Extremity: Positive for: Normal Inspection. Negative for: Edema Neurological: Positive for: GCS=15, CN II-XII Intact, Speech Normal Skin: Positive for: Warm, Dry, Normal Color. Negative for: Rashes Psychiatric: Positive for: Alert, Oriented x 3, Normal Insight, Normal Concentration - Medications Active Medications: Active Medications Generic Name Dose Route Start Last Admin Trade Name Freq PRN Reason Stop Dose Admin Albuterol/Ipratropium 3 ml 06/24/17 20:00 06/28/17 08:05 Duoneb 3 Mg/0.5 Mg (3 Ml) Ud IH 3 ml [id number] CARLOS Administration Aspirin 81 mg 06/24/17 10:00 06/28/17 09:33 Ecotrin PO 81 mg DAILY CARLOS Administration Atorvastatin Calcium 10 mg 06/24/17 17:00 06/27/17 18:36 Lipitor PO 10 mg DIN CARLOS Administration Benzocaine/Menthol 1 damon 06/28/17 09:42 Cepacol Sore Throat MT Q2H PRN Sore Throat Calcium Acetate 1,334 mg 06/24/17 10:00 06/28/17 09:33 Phoslo PO 1,334 mg TID CARLOS Administration Ergocalciferol 1 cap 06/24/17 10:00 06/24/17 10:22 Drisdol 50,000 Intl Units Cap PO 1 cap SAT CARLOS Administration Fenofibrate 145 mg 06/25/17 10:01 06/28/17 09:33 Tricor PO 145 mg DAILY CARLOS Administration Furosemide 40 mg 06/24/17 10:00 06/28/17 09:51 Lasix PO Not Given BID CARLOS Gabapentin 300 mg 06/26/17 22:00 06/27/17 22:04 Neurontin PO 300 mg 2200 CARLOS Administration Protocol Home Med 1 unit 06/24/17 10:00 06/28/17 09:51 Home Med TOP Not Given DAILY CARLOS Home Med 1 unit 06/24/17 10:00 06/28/17 09:50 Home Med INH Not Given BID CARLOS Hydralazine HCl 20 mg 06/24/17 10:36 06/28/17 09:59 Apresoline PO Not Given BID CARLOS Insulin Human NPH 70 units 06/24/17 16:30 06/26/17 16:37 Humulin N SC Not Given ACD CARLOS Insulin Human NPH 80 units 06/24/17 08:30 06/27/17 14:11 Humulin N SC Not Given ACB CARLOS Insulin Human Regular 0 units 06/25/17 22:00 06/28/17 08:00 Humulin R High SC 4 units ACHS CARLOS Administration Protocol Latanoprost 1 ml 06/24/17 22:00 06/27/17 22:05 Xalatan Opht OU 1 ml HS CARLOS Administration Loratadine 10 mg 06/24/17 22:00 06/27/17 22:04 Claritin PO 10 mg HS CARLOS Administration Metoprolol Tartrate 25 mg 06/28/17 10:00 06/28/17 09:49 Lopressor PO Not Given BID CARLOS Metronidazole 1 gm 06/24/17 10:00 06/27/17 14:18 Metrogel Cream TOP Not Given DAILY CARLOS Montelukast Sodium 10 mg 06/24/17 22:00 06/27/17 22:04 Singulair PO 10 mg HS CARLOS Administration Nateglinide 120 mg 06/24/17 16:30 06/27/17 18:39 Starlix PO 120 mg ACD CARLOS Administration Nateglinide 60 mg 06/24/17 11:30 06/28/17 11:15 Starlix PO 60 mg ACL CARLOS Administration [id number] Ethyl Esters 2 gm 06/24/17 10:00 06/28/17 09:34 Lovaza PO 2 gm BID CARLOS Administration Ondansetron HCl 4 mg 06/27/17 08:30 Zofran Inj IM Q4H PRN Nausea/Vomiting Pantoprazole Sodium 40 mg 06/25/17 10:07 06/28/17 09:34 Protonix Ec Tab PO 40 mg DAILY CARLOS Administration Pregabalin 50 mg 06/25/17 10:00 06/28/17 09:35 Lyrica PO 50 mg DAILY CARLOS Administration Sildenafil Citrate 20 mg 06/24/17 18:00 06/28/17 11:00 Revatio PO 20 mg BID CARLOS Administration Sodium Chloride 1 ml 06/28/17 09:42 [place] Nasal [place] NS Q2H PRN Nasal congestion Tamsulosin HCl 0.4 mg 06/24/17 10:00 06/28/17 09:49 Flomax PO 0.4 mg DAILY CARLOS Administration Ticagrelor 90 mg 06/25/17 18:00 06/28/17 10:11 Brilinta PO 90 mg BID CARLOS Administration Vitamin B Complex/Vit C/Folic Acid 1 tab 06/25/17 08:00 06/28/17 09:00 Nephro-Genet PO 1 tab 0800 CARLOS Administration Zolpidem Tartrate 5 mg 06/24/17 08:20 06/26/17 22:49 Ambien PO 5 mg HS PRN Administration Insomnia Protocol - Patient Studies Lab Studies: Lab Studies 06/28/17 06/28/17 06/28/17 Range/Units 08:05 05:00 05:00 WBC 5.4 (4.5-11.0) 10^3/ul RBC 3.17 L (3.5-6.1) 10^6/uL Hgb 9.3 L (14.0-18.0) g/dL Hct 29.9 L (42.0-52.0) % MCV 94.3 (80.0-105.0) fl MCH 29.3 (25.0-35.0) pg MCHC 31.1 (31.0-37.0) g/dl RDW 16.9 H (11.5-14.5) % Plt Count 128 (120.0-450.0) 10^3/uL MPV 12.1 H (7.0-11.0) fl Gran % 72.7 H (50.0-68.0) % Lymph % (Auto) 14.6 L (22.0-35.0) % Holt % (Auto) 9.1 H (1.0-6.0) % Eos % (Auto) 3.2 (1.5-5.0) % Baso % (Auto) 0.4 (0.0-3.0) % Gran # 3.90 (1.4-6.5) Lymph # (Auto) 0.8 L (1.2-3.4) Holt # (Auto) 0.5 (0.1-0.6) Eos # (Auto) 0.2 (0.0-0.7) Baso # (Auto) 0.02 (0.0-2.0) K/mm3 Sodium 136 (132-148) mmol/L Potassium 5.0 (3.6-5.0) mmol/L Chloride 94 L (98-107) mmol/L Carbon Dioxide 28 (21-33) mmol/L Anion Gap 19 (10-20) BUN 46 H (7-21) mg/dL Creatinine 9.6 H* D (0.8-1.5) mg/dl Est GFR ( Amer) 7 Est GFR (Non-Af Amer) 6 POC Glucose (mg/dL) 216 H (65-110) mg/dL Random Glucose 254 H (70-110) mg/dL Calcium 8.8 (8.4-10.5) mg/dL Phosphorus 6.0 H (2.5-4.5) mg/dL Magnesium 2.2 (1.7-2.2) mg/dL Total Bilirubin 0.6 (0.2-1.3) mg/dL AST 178 H D (17-59) U/L ALT 256 H (7-56) U/L Alkaline Phosphatase 56 (38-126) U/L Total Protein 7.9 (5.8-8.3) g/dL Albumin 3.7 (3.0-4.8) g/dL Globulin 4.1 gm/dL Albumin/Globulin Ratio 0.9 L (1.1-1.8) 06/27/17 06/27/17 Range/Units 21:59 16:28 WBC (4.5-11.0) 10^3/ul RBC (3.5-6.1) 10^6/uL Hgb (14.0-18.0) g/dL Hct (42.0-52.0) % MCV (80.0-105.0) fl MCH (25.0-35.0) pg MCHC (31.0-37.0) g/dl RDW (11.5-14.5) % Plt Count (120.0-450.0) 10^3/uL MPV (7.0-11.0) fl Gran % (50.0-68.0) % Lymph % (Auto) (22.0-35.0) % Holt % (Auto) (1.0-6.0) % Eos % (Auto) (1.5-5.0) % Baso % (Auto) (0.0-3.0) % Gran # (1.4-6.5) Lymph # (Auto) (1.2-3.4) Holt # (Auto) (0.1-0.6) Eos # (Auto) (0.0-0.7) Baso # (Auto) (0.0-2.0) K/mm3 Sodium (132-148) mmol/L Potassium (3.6-5.0) mmol/L Chloride (98-107) mmol/L Carbon Dioxide (21-33) mmol/L Anion Gap (10-20) BUN (7-21) mg/dL Creatinine (0.8-1.5) mg/dl Est GFR ( Amer) Est GFR (Non-Af Amer) POC Glucose (mg/dL) 247 H 155 H (65-110) mg/dL Random Glucose (70-110) mg/dL Calcium (8.4-10.5) mg/dL Phosphorus (2.5-4.5) mg/dL Magnesium (1.7-2.2) mg/dL Total Bilirubin (0.2-1.3) mg/dL AST (17-59) U/L ALT (7-56) U/L Alkaline Phosphatase (38-126) U/L Total Protein (5.8-8.3) g/dL Albumin (3.0-4.8) g/dL Globulin gm/dL Albumin/Globulin Ratio (1.1-1.8) Laboratory Results - last 24 hr 06/27/17 06/27/17 06/28/17 16:28 21:59 05:00 WBC 5.4 RBC 3.17 L Hgb 9.3 L Hct 29.9 L MCV 94.3 MCH 29.3 MCHC 31.1 RDW 16.9 H Plt Count 128 MPV 12.1 H Gran % 72.7 H Lymph % (Auto) 14.6 L Holt % (Auto) 9.1 H Eos % (Auto) 3.2 Baso % (Auto) 0.4 Gran # 3.90 Lymph # (Auto) 0.8 L Holt # (Auto) 0.5 Eos # (Auto) 0.2 Baso # (Auto) 0.02 Sodium Potassium Chloride Carbon Dioxide Anion Gap BUN Creatinine Est GFR ( Amer) Est GFR (Non-Af Amer) POC Glucose (mg/dL) 155 H 247 H Random Glucose Calcium Phosphorus Magnesium Total Bilirubin AST ALT Alkaline Phosphatase Total Protein Albumin Globulin Albumin/Globulin Ratio 06/28/17 06/28/17 05:00 08:05 WBC RBC Hgb Hct MCV MCH MCHC RDW Plt Count MPV Gran % Lymph % (Auto) Holt % (Auto) Eos % (Auto) Baso % (Auto) Gran # Lymph # (Auto) Holt # (Auto) Eos # (Auto) Baso # (Auto) Sodium 136 Potassium 5.0 Chloride 94 L Carbon Dioxide 28 Anion Gap 19 BUN 46 H Creatinine 9.6 H* D Est GFR ( Amer) 7 Est GFR (Non-Af Amer) 6 POC Glucose (mg/dL) 216 H Random Glucose 254 H Calcium 8.8 Phosphorus 6.0 H Magnesium 2.2 Total Bilirubin 0.6 AST 178 H D ALT 256 H Alkaline Phosphatase 56 Total Protein 7.9 Albumin 3.7 Globulin 4.1 Albumin/Globulin Ratio 0.9 L EKG/Cardiology Studies: Cardiology / EKG Studies 06/27/17 11:20 ELECTROCARDIOGRAM Stat Comment: Reason For Exam: s/p ppm PERFORMING PHYSICIAN/PROVIDER:: Jarred Erickson 06/28/17 07:00 ELECTROCARDIOGRAM Routine Comment: S/p PPM Reason For Exam: CAD PRE OP:: N Does Patient Have a Pacemaker?: No 06/28/17 10:50 ELECTROCARDIOGRAM Stat Comment: Reason For Exam: chest pain Fingerstick Blood Sugar Results: 247 Review of Systems - EENT Eyes: absent: Blurred Vision, Change in Vision - Cardiovascular Cardiovascular: Chest Pain, Chest Pain at Rest - Respiratory Respiratory: Cough. absent: Dyspnea - Gastrointestinal Gastrointestinal: absent: Diarrhea, Nausea, Vomiting - Genitourinary Genitourinary: Dysuria - Musculoskeletal Musculoskeletal: UNREMARKABLE - Integumentary Integumentary: UNREMARKABLE - Neurological Neurological: UNREMARKABLE. absent: Dizziness, Headaches - Psychiatric Psychiatric: UNREMARKABLE. absent: Anxiety - Endocrine Endocrine: UNREMARKABLE. absent: Fatigue - Hematologic/Lymphatic Hematologic: UNREMARKABLE Critical Care Progress Note - Nutrition Nutrition: Nutrition Category Date Time Status Renal Diet [DIET] Diets 06/24/17 Lunch Ordered Assessment/Plan - Assessment and Plan (Free Text) Assessment: 52 M past medical history of COPD, asthma, CO2 retention and hypoventilation syndrome, GERD, NIDDM, ESRD HD MWF, hypertension, Cardiac catheterization with stent placement 05/2017, TIA, CHF, left corneal transplant, renal retinopathy, admitted to hospital for chest pain. Patients senior games technician recently decided patient was too sensitive to Toprol XL and discontinued the medication from office standpoint however patient received this medication when admitted and resultantly experienced an episode of bradycardia and hypotension 83/37. [employer]IONICS SUPERVISOR was called patient was given 2 rounds of atropine, patient was then transferred to ICU and started on dopamine drip. Due to patient still experiencing bradycardia with dopamine drip, patient had pacemaker placed today. Plan: Neurologic -AAOx3, responsive. -Continue with gabapentin and lyrica -Morphine given for pain at site of pacemaker placement Cardiovascular -Monitor bradycardia -Pacemaker has been placed -Continue with aspirin, statin, furosemide, hydralazine, -Continue lovaza -Continue with brillinta -Do not give patient any form of Beta-valerie as patient is sensitive to medication Endocrine -Maintain normothermia, euvolemia Respiratory -Continue with Duonebs [facility] -Continue revatio for recently discovered Pulmonary hypertension -Pulmonology consult; recs appreciated -BiPAP encouraged; patient refuses -Continue to maintain O2 sat >90% Renal/Fluids -Hemodialysis scheduled for MWF -continue with nephro-genet and phoslo -Nephrology consulted Gastrointestinal/Nutrition -Renal diet Endocrine -NPH insulin restarted -Continue with fingersticks q6h -continue to monitor glucose levels closely -continue flomax Hematologic -H&H stable continue to monitor <Adam Linares - Last Filed: 06/28/17 14:09> CCU Objective - Vital Signs / Intake & Output Vital Signs (Last 4 hours): Vital Signs Pulse BP 06/28/17 13:34 62 118/50 L Intake and Output (Last 8hrs): Intake & Output 06/27/17 06/28/17 06/28/17 22:59 06:59 14:59 Intake Total 850 200 Balance 850 200 Intake: Oral 850 200 - Medications Active Medications: Active Medications Generic Name Dose Route Start Last Admin Trade Name Freq PRN Reason Stop Dose Admin Albuterol/Ipratropium 3 ml 06/24/17 20:00 06/28/17 13:10 Duoneb 3 Mg/0.5 Mg (3 Ml) Ud IH 3 ml [id number] CARLOS Administration Aspirin 81 mg 06/24/17 10:00 06/28/17 09:33 Ecotrin PO 81 mg DAILY CARLOS Administration Atorvastatin Calcium 10 mg 06/24/17 17:00 06/27/17 18:36 Lipitor PO 10 mg DIN CARLOS Administration Benzocaine/Menthol 1 damon 06/28/17 09:42 Cepacol Sore Throat MT Q2H PRN Sore Throat Calcium Acetate 1,334 mg 06/24/17 10:00 06/28/17 09:33 Phoslo PO 1,334 mg TID CARLOS Administration Ergocalciferol 1 cap 06/24/17 10:00 06/24/17 10:22 Drisdol 50,000 Intl Units Cap PO 1 cap SAT CARLOS Administration Fenofibrate 145 mg 06/25/17 10:01 06/28/17 09:33 Tricor PO 145 mg DAILY CARLOS Administration Gabapentin 300 mg 06/26/17 22:00 06/27/17 22:04 Neurontin PO 300 mg 2200 CARLOS Administration Protocol Home Med 1 unit 06/24/17 10:00 06/28/17 09:51 Home Med TOP Not Given DAILY CARLOS Home Med 1 unit 06/24/17 10:00 06/28/17 09:50 Home Med INH Not Given BID CARLOS Hydralazine HCl 20 mg 06/24/17 10:36 06/28/17 09:59 Apresoline PO Not Given BID CARLOS Insulin Human NPH 70 units 06/24/17 16:30 06/26/17 16:37 Humulin N SC Not Given ACD CARLOS Insulin Human NPH 80 units 06/24/17 08:30 06/27/17 14:11 Humulin N SC Not Given ACB CARLOS Insulin Human Regular 0 units 06/25/17 22:00 06/28/17 11:59 Humulin R High SC 1 units ACHS CARLOS Administration Protocol Latanoprost 1 ml 06/24/17 22:00 06/27/17 22:05 Xalatan Opht OU 1 ml HS CARLOS Administration Loratadine 10 mg 06/24/17 22:00 06/27/17 22:04 Claritin PO 10 mg HS CARLOS Administration Metoprolol Tartrate 25 mg 06/28/17 10:00 06/28/17 13:34 Lopressor PO 25 mg BID CARLOS Administration Metronidazole 1 gm 06/24/17 10:00 06/28/17 11:46 Metrogel Cream TOP Not Given DAILY CARLOS Montelukast Sodium 10 mg 06/24/17 22:00 06/27/17 22:04 Singulair PO 10 mg HS CALROS Administration Nateglinide 120 mg 06/24/17 16:30 06/27/17 18:39 Starlix PO 120 mg ACD CARLOS Administration Nateglinide 60 mg 06/24/17 11:30 06/28/17 11:15 Starlix PO 60 mg ACL CARLOS Administration [id number] Ethyl Esters 2 gm 06/24/17 10:00 06/28/17 09:34 Lovaza PO 2 gm BID CARLOS Administration Ondansetron HCl 4 mg 06/27/17 08:30 Zofran Inj IM Q4H PRN Nausea/Vomiting Pantoprazole Sodium 40 mg 06/25/17 10:07 06/28/17 09:34 Protonix Ec Tab PO 40 mg DAILY CARLOS Administration Pregabalin 50 mg 06/25/17 10:00 06/28/17 09:35 Lyrica PO 50 mg DAILY CARLOS Administration Sildenafil Citrate 20 mg 06/24/17 18:00 06/28/17 11:00 Revatio PO 20 mg BID CARLOS Administration Sodium Chloride 1 ml 06/28/17 09:42 [place] Nasal [place] NS Q2H PRN Nasal congestion Tamsulosin HCl 0.4 mg 06/24/17 10:00 06/28/17 09:49 Flomax PO 0.4 mg DAILY CARLOS Administration Ticagrelor 90 mg 06/25/17 18:00 06/28/17 10:11 Brilinta PO 90 mg BID CARLOS Administration Vitamin B Complex/Vit C/Folic Acid 1 tab 06/25/17 08:00 06/28/17 09:00 Nephro-Genet PO 1 tab 0800 CARLOS Administration Zolpidem Tartrate 5 mg 06/24/17 08:20 06/26/17 22:49 Ambien PO 5 mg HS PRN Administration Insomnia Protocol - Patient Studies Lab Studies: Lab Studies 06/28/17 06/28/17 06/28/17 Range/Units 08:05 05:00 05:00 WBC (4.5-11.0) 10^3/ul RBC (3.5-6.1) 10^6/uL Hgb (14.0-18.0) g/dL Hct (42.0-52.0) % MCV (80.0-105.0) fl MCH (25.0-35.0) pg MCHC (31.0-37.0) g/dl RDW (11.5-14.5) % Plt Count (120.0-450.0) 10^3/uL MPV (7.0-11.0) fl Gran % (50.0-68.0) % Lymph % (Auto) (22.0-35.0) % Holt % (Auto) (1.0-6.0) % Eos % (Auto) (1.5-5.0) % Baso % (Auto) (0.0-3.0) % Gran # (1.4-6.5) Lymph # (Auto) (1.2-3.4) Holt # (Auto) (0.1-0.6) Eos # (Auto) (0.0-0.7) Baso # (Auto) (0.0-2.0) K/mm3 Sodium 136 (132-148) mmol/L Potassium 5.0 (3.6-5.0) mmol/L Chloride 94 L (98-107) mmol/L Carbon Dioxide 28 (21-33) mmol/L Anion Gap 19 (10-20) BUN 46 H (7-21) mg/dL Creatinine 9.6 H* D (0.8-1.5) mg/dl Est GFR ( Amer) 7 Est GFR (Non-Af Amer) 6 POC Glucose (mg/dL) 216 H (65-110) mg/dL Random Glucose 254 H (70-110) mg/dL Calcium 8.8 (8.4-10.5) mg/dL Phosphorus 6.0 H (2.5-4.5) mg/dL Magnesium 2.2 (1.7-2.2) mg/dL Total Bilirubin 0.6 (0.2-1.3) mg/dL AST 178 H D (17-59) U/L ALT 256 H (7-56) U/L Alkaline Phosphatase 56 (38-126) U/L Troponin I 0.30 H* D ng/mL Total Protein 7.9 (5.8-8.3) g/dL Albumin 3.7 (3.0-4.8) g/dL Globulin 4.1 gm/dL Albumin/Globulin Ratio 0.9 L (1.1-1.8) 06/28/17 06/27/17 06/27/17 Range/Units 05:00 21:59 16:28 WBC 5.4 (4.5-11.0) 10^3/ul RBC 3.17 L (3.5-6.1) 10^6/uL Hgb 9.3 L (14.0-18.0) g/dL Hct 29.9 L (42.0-52.0) % MCV 94.3 (80.0-105.0) fl MCH 29.3 (25.0-35.0) pg MCHC 31.1 (31.0-37.0) g/dl RDW 16.9 H (11.5-14.5) % Plt Count 128 (120.0-450.0) 10^3/uL MPV 12.1 H (7.0-11.0) fl Gran % 72.7 H (50.0-68.0) % Lymph % (Auto) 14.6 L (22.0-35.0) % Holt % (Auto) 9.1 H (1.0-6.0) % Eos % (Auto) 3.2 (1.5-5.0) % Baso % (Auto) 0.4 (0.0-3.0) % Gran # 3.90 (1.4-6.5) Lymph # (Auto) 0.8 L (1.2-3.4) Holt # (Auto) 0.5 (0.1-0.6) Eos # (Auto) 0.2 (0.0-0.7) Baso # (Auto) 0.02 (0.0-2.0) K/mm3 Sodium (132-148) mmol/L Potassium (3.6-5.0) mmol/L Chloride (98-107) mmol/L Carbon Dioxide (21-33) mmol/L Anion Gap (10-20) BUN (7-21) mg/dL Creatinine (0.8-1.5) mg/dl Est GFR ( Amer) Est GFR (Non-Af Amer) POC Glucose (mg/dL) 247 H 155 H (65-110) mg/dL Random Glucose (70-110) mg/dL Calcium (8.4-10.5) mg/dL Phosphorus (2.5-4.5) mg/dL Magnesium (1.7-2.2) mg/dL Total Bilirubin (0.2-1.3) mg/dL AST (17-59) U/L ALT (7-56) U/L Alkaline Phosphatase (38-126) U/L Troponin I ng/mL Total Protein (5.8-8.3) g/dL Albumin (3.0-4.8) g/dL Globulin gm/dL Albumin/Globulin Ratio (1.1-1.8) Laboratory Results - last 24 hr 06/27/17 06/27/17 06/28/17 16:28 21:59 05:00 WBC 5.4 RBC 3.17 L Hgb 9.3 L Hct 29.9 L MCV 94.3 MCH 29.3 MCHC 31.1 RDW 16.9 H Plt Count 128 MPV 12.1 H Gran % 72.7 H Lymph % (Auto) 14.6 L Holt % (Auto) 9.1 H Eos % (Auto) 3.2 Baso % (Auto) 0.4 Gran # 3.90 Lymph # (Auto) 0.8 L Holt # (Auto) 0.5 Eos # (Auto) 0.2 Baso # (Auto) 0.02 Sodium Potassium Chloride Carbon Dioxide Anion Gap BUN Creatinine Est GFR ( Amer) Est GFR (Non-Af Amer) POC Glucose (mg/dL) 155 H 247 H Random Glucose Calcium Phosphorus Magnesium Total Bilirubin AST ALT Alkaline Phosphatase Troponin I Total Protein Albumin Globulin Albumin/Globulin Ratio 06/28/17 06/28/17 06/28/17 05:00 05:00 08:05 WBC RBC Hgb Hct MCV MCH MCHC RDW Plt Count MPV Gran % Lymph % (Auto) Holt % (Auto) Eos % (Auto) Baso % (Auto) Gran # Lymph # (Auto) Holt # (Auto) Eos # (Auto) Baso # (Auto) Sodium 136 Potassium 5.0 Chloride 94 L Carbon Dioxide 28 Anion Gap 19 BUN 46 H Creatinine 9.6 H* D Est GFR ( Amer) 7 Est GFR (Non-Af Amer) 6 POC Glucose (mg/dL) 216 H Random Glucose 254 H Calcium 8.8 Phosphorus 6.0 H Magnesium 2.2 Total Bilirubin 0.6 AST 178 H D ALT 256 H Alkaline Phosphatase 56 Troponin I 0.30 H* D Total Protein 7.9 Albumin 3.7 Globulin 4.1 Albumin/Globulin Ratio 0.9 L EKG/Cardiology Studies: Cardiology / EKG Studies 06/28/17 07:00 ELECTROCARDIOGRAM Routine Comment: S/p PPM Reason For Exam: CAD PRE OP:: N Does Patient Have a Pacemaker?: No 06/28/17 10:50 ELECTROCARDIOGRAM Stat Comment: Reason For Exam: chest pain Critical Care Progress Note - Nutrition Nutrition: Nutrition Category Date Time Status Renal Diet [DIET] Diets 06/24/17 Lunch Ordered Attending/Attestation - Attestation I have personally seen and examined this patient.: Yes I have fully participated in the care of the patient.: Yes I have reviewed all pertinent clinical information: Yes Notes (Text): 06/28/17 14:07 52 yo with symptomatic bradycardia, now s/p PM. hemodynamically and respiratory cesar stable. ok to downgrade to tele ccm time 40 min
--- NOTE | 2017-06-28 12:45 | RAD ---
HISTORY: S/p PPM, R/o pneumothorax COMPARISON: 06/27/2017 TECHNIQUE: Chest PA and lateral FINDINGS: LUNGS: No active pulmonary disease. PLEURA: No significant pleural effusion identified. No pneumothorax apparent. CARDIOVASCULAR: Mild cardiomegaly. Pacemaker OSSEOUS STRUCTURES: No significant abnormalities. VISUALIZED UPPER ABDOMEN: Normal. OTHER FINDINGS: None. IMPRESSION: No active disease.
--- NOTE | 2017-06-28 14:27 | CARD ---
APPROVED REPORT EKG Measurement Heart [id number] MA 80P60 [id number] <Conclusion> Sinus rhythm with short MA Inferior infarct, age undetermined PRWP NSSTW changes Non conducting pacer spikes at - 60/min. Suggest clinical correlation.
--- NOTE | 2017-06-28 15:57 | PN ---
DATE: 06/28/2017 REASON FOR CONSULTATION AND FOLLOWUP: Sick sinus syndrome with history of permanent pacemaker, history of coronary artery disease; history of end-stage renal disease, on dialysis. SUBJECTIVE: The patient denies any chest pain, shortness of breath or any palpitations. OBJECTIVE: GENERAL: Not in apparent distress. Feels a lot better. VITAL SIGNS: Heart rate 60, blood pressure 125/57. HEENT: PERRLA. Extraocular muscles intact. NECK: Supple. No carotid bruits or thyromegaly. CHEST: Clear to auscultation. Right side of the chest looks okay. No hematoma noted. Dressing removed. HEART: S1, S2 regular. ABDOMEN: Soft. EXTREMITIES: Clubbing and cyanosis negative. LABORATORY DATA: Blood workup as follows: WBC 5.4, hemoglobin 9.3, hematocrit 29.9, platelet count 128. Chemistry shows sodium 136, potassium 5, chloride 94, carbon dioxide 28, anion gap 19, BUN 46, and creatinine 9.6. IMPRESSION: Sick sinus syndrome; junctional bradycardia; status post permanent pacemaker; diabetes; hypertension; hyperlipidemia; end-stage renal disease, on dialysis; atypical chest pain, right-sided, musculoskeletal; history of coronary artery disease, history of recently a stent placed on 06/12/2017 after having done, which was significant for coronary artery disease. RECOMMENDATIONS: Continue aspirin. Continue Brilinta. Patient is resistant to Plavix. Repeat , consistent with resistant to Plavix, on Brilinta. Start low dose of beta-valerie as blood pressure is tolerated. Transfer to floor, possibly discharge home today. We will give vancomycin. THE PATIENT IS ALLERGIC TO PENICILLIN. We will hold antibiotics. We will follow with you. Start beta-valerie and possibly discharge home. We will transfer to . We will give sling to the left arm and advise the patient not to leave the sling to the right arm and will advise the patient not to lift right arm above the head. We will resume beta-valerie. Thank you Dr. Kessler for providing me the opportunity in taking care of the patient, Jason Berger. Jarred Erickson MD
--- NOTE | 2017-06-28 16:40 | PN ---
DATE: 06/28/2017 SUBJECTIVE: The patient is seen sitting in bed in the ICU. He is awake. He is alert. He complains of pain at the pacemaker site. He denies the previous pain that he was having. He denies any shortness of breath. Denies any chest tightness. He denies any abdominal pain. He has not had a bowel movement since admission. He denies any urinary complaints, other than that the fact that he has not urinated since the time he came in. PHYSICAL EXAMINATION: GENERAL: Middle-aged male lying in bed. VITAL SIGNS: Blood pressure 98/64, heart rate 68, respiratory rate 14, temperature 98. HEENT: Normocephalic, atraumatic, positive pallor. NECK: Supple, no JVD. LUNGS: Bilateral equal air entry, bilateral basilar rales. CARDIAC: S1 and S2, regular rate and rhythm, no murmur, no rub. ABDOMEN: Obese, distended, soft, nontender, bowel sounds present. EXTREMITIES: No lower extremity edema. INTAKE AND OUTPUT: 1050/not charted. LABORATORY DATA: WBC 5.4, hemoglobin 9.3, hematocrit 29.9, platelets 128. Sodium 136, potassium 5.0, chloride 94, CO2 28, BUN 46, creatinine 9.6, glucose 254, calcium 8.8, phosphorus 6, magnesium 2.2, AST 178, ALT 256, troponin 0.30, albumin 3.7. CURRENT MEDICATIONS: Ambien, Apresoline 20 b.i.d., Brilinta, Cepacol, Claritin, Drisdol, DuoNeb, Ecotrin, Flomax, insulin, Lasix 40 p.o. b.i.d., Lipitor 10, Lopressor 25 b.i.d., Lovaza, Lyrica 50 daily, Flagyl cream, Nephro-Eva, Neurontin 300 daily, sodium chloride, PhosLo 1334 p.o. t.i.d. with meals, Protonix, Revatio 20 b.i.d., Singulair, Starlix, TriCor, and Zofran. ASSESSMENT AND PLAN: 1. Severe symptomatic bradycardia, status post cardiac arrest. 2. Status post pacemaker placement, postop day #1. 2. Coronary artery disease, recent percutaneous transluminal coronary angioplasty and stent to the left anterior descending. 4. Pulmonary hypertension. 5. Noninsulin-dependent diabetes mellitus. 6. Hypertension. 7. End-stage renal disease. 8. Severe anemia. 9. Elevated troponin. PLAN: 1. The patient has received a pacemaker, okay to restart beta-valerie as per Dr. Erickson. 2. Dialysis today, ultrafiltration about 2-1/2 to 3 kg as tolerated. 3. Discontinue Lasix since the patient is not urinating. 4. Continue phosphate binders, phosphorus is 6.0. 5. Continue to monitor closely. 6. Monitor fingersticks and continue insulin coverage. 7. Discussed with Dr Erickson/ICU staff/Patient at bedside at length. > 35 min spent in care coordination Eva Malcolm MD [facility]
--- NOTE | 2017-06-28 17:01 | PN ---
DATE: 06/28/2017 PULMONARY PROGRESS NOTE REFERRING PHYSICIAN: Dr. Kessler. SUBJECTIVE: The patient lying in the bed, head at 45 degree, has a right-sided pacemaker with dressing. Night was unremarkable, tolerated CPAP well. No cough, no sputum production. No nausea, vomiting or diarrhea. No leg pain or leg swelling. OBJECTIVE: GENERAL: In no acute distress. VITAL SIGNS: Temperature is 98, heart rate 68, respiratory rate is 12, blood pressure 118/50, pulse ox 100% on nasal cannula. HEENT: Moist mucous membrane. Crowded airway. Mallampati score is 4. NECK: Supple. No JVD. LUNGS: Have a fair airflow with rhonchi. HEART: S1 and S2. ABDOMEN: Soft, nontender. No organomegaly. EXTREMITIES: Trace edema. NEUROLOGIC: Awake and alert. Follows simple commands. MEDICATIONS: He is on Ambien 5 mg at bedtime p.r.n., hydralazine 20 mg twice a day, Brilinta 90 mg twice a day, benzocaine every 2 hours p.r.n., Claritin 10 mg daily, vitamin D 50,000 unit was given, DuoNeb every 6 hours, Ecotrin 81 mg daily, Flomax 0.4 mg daily, insulin coverage, Lipitor 10 mg daily, metoprolol tartrate 25 mg twice a day, Lovaza 2 mg twice a day, Lyrica 50 mg daily, metronidazole 1 g topically daily, vitamin B complex 1 tab daily, daily, nasal saline 2 spray each nostril q. 4 hours p.r.n., Protonix 40 mg daily, Revatio 20 mg twice a day, Singulair 10 mg daily, Starlix 60 mg a.c.l and 120 mg a.c.d., TriCor 145 mg daily, Zofran on p.r.n. basis. LABORATORY DATA: Shows hemoglobin 9.3, hematocrit 29.9, WBC 5.4, platelet count is 128. INR 1.4. Sodium 136, potassium 4.0, chloride 94, bicarbonate 28, BUN 46, creatinine , glucose 254, calcium is 8.8, magnesium 2.2, AST 178, ALT 256, alkaline phosphatase is 56, albumin is 3.7. Troponin 0.30. Nares MRSA not detected. Chest x-ray done this morning, shows no active disease, no pneumothorax reported. IMPRESSION AND PLAN: Cardiac arrhythmia; bradycardia; status post pacemaker placement; chronic obstructive lung disease; obstructive sleep apnea syndrome; pulmonary hypertension; diabetes retinopathy; nephropathy, dialysis dependent. Pulmonary point of view, doing well. Continue bilevel positive airway pressure while sleeping. Keep head at 45 degrees. P.o. and inhaled bronchodilators. May continue beta-valerie now, out of bed to chair. May benefit from therapy. Thank you and we will follow with you. Jarred Escalera MD
--- NOTE | 2017-06-28 18:49 | PN ---
DATE: SUBJECTIVE: Patient is 52-year-old male. Patient is seen and examined at beside, looking comfortable. No nausea, vomiting, or diarrhea. No hematuria or hematochezia. No swelling of the legs. No chest pain or palpitations. No headache. No dizziness. PHYSICAL EXAMINATION: VITAL SIGNS: Temperature 98, heart rate 60, respiratory rate 12, blood pressure 118/50, pulse oximetry 100% on nasal cannula. HEENT: Head, normocephalic and atraumatic. Eyes, PERRLA. Extraocular muscles intact. Conjunctivae clear. Nose patent. Mucous membranes moist. NECK: Supple. No carotid bruit. No JVD or thyromegaly. CHEST: Bilaterally symmetrical. HEART: S1 and S2 positive. LUNGS: Clear to auscultation. ABDOMEN: Soft. Bowel sounds are present. No organomegaly. EXTREMITIES: No edema. No cyanosis. NEUROLOGIC: Patient is awake and alert, moving all 4 extremities with no focal deficit. MEDICATIONS: Ambien, hydralazine, Brilinta, benzocaine, Claritin, vitamin D, DuoNeb, Ecotrin, Flomax, insulin, Lipitor, metoprolol, Lovaza, Lyrica, B12, nasal saline, Protonix, Revatio, Singulair, Starlix, TriCor, Zofran. LABORATORY DATA: Hemoglobin 9.3, hematocrit 29.9, white blood cells 5.4, platelets 128; INR 1.4. Sodium 136, potassium 4, BUN 46, glucose 254. AST 178, ALT 256. ASSESSMENT AND PLAN: Mr. Jason Berger has cardiac arrhythmias, history of bradycardia, status post pacemaker placement, now heart rate is in the 60s, chronic obstructive lung disease, obstructive sleep apnea syndrome, pulmonary hypertension, diabetic retinopathy, diabetic nephropathy, diabetic neuropathy, dialysis dependent. Continue bilevel positive airway pressure while sleeping. Continue p.o. and inhaled bronchodilators. No more beta-blockers and no calcium channel blockers. Continue physical therapy. Appreciated Dr. Escalera, Dr. Malcolm, and Dr. Erickson notes. We will follow up. Diana Kessler MD [facility] # [id number]
[2017-06-28] MEDS: Latanoprost 2.5 ml Opht Soln OU SCH (21:54)
[2017-06-29] MEDS: Albuterol-Ipratrop 3 mg / 0.5 (3 ml) UD IH SCH ×4 (01:50→20:44)
[2017-06-29] MEDS: Insulin Human NPH 1 UNITS/0.01 ML SC SCH ×2 (08:00→17:15)
[2017-06-29] MEDS: Multivitamin Vitamin B Complex (Nephro-Vite) Tab PO SCH (09:00)
[2017-06-29] MEDS: VOLTAREN GEL TOP SCH (09:16)
[2017-06-29] MEDS: Insulin Reg-HIGH-Coverage SC SCH ×4 (09:18→21:56)
[2017-06-29] MEDS: MetroNIDAZOLE 0.75% Cream(45 gm) TOP SCH (09:21)
[2017-06-29] MEDS: Omega-3-Acid Ethyl Esters 1 GM Cap PO SCH ×2 (09:21→17:17)
[2017-06-29] MEDS: Pantoprazole 40 mg EC Tab PO SCH (09:24)
[2017-06-29] MEDS: Sildenafil 20 MG TAB PO SCH ×2 (09:43→17:18)
--- NOTE | 2017-06-29 14:27 | PN ---
DATE: 06/29/2017 SUBJECTIVE: The patient is seen lying in bed in the ICU. He is awake and alert, is comfortable. He reports feeling better today. He denies any chest tightness. Denies any palpitations. PHYSICAL EXAMINATION GENERAL: Middle-aged male lying in bed. VITAL SIGNS: Blood pressure 112/54, heart rate 63, respiratory rate 18-20, temperature 98.7. HEENT: Normocephalic, atraumatic. NECK: Supple, no JVD. LUNGS: Bilateral equal entry, basilar rales. CARDIAC: S1, S2. Regular rate and rhythm. Positive murmur, no rub. ABDOMEN: Obese, distended, soft, nontender. Bowel sounds present. EXTREMITIES: Chronic stasis changes, hairless hyperpigmented skin. INTAKE AND OUTPUT: Not charted. LABORATORY DATA WBC 5.4, hemoglobin 9.3, hematocrit 30, platelets 128. No chemistry today. CURRENT MEDICATIONS: Ambien, Apresoline 20 b.i.d., Brilinta 90 b.i.d., Claritin, Colace 100 b.i.d., vitamin D, DuoNeb, Ecotrin 81, Flomax 0.4, insulin, Lipitor 10, Lopressor 25 b.i.d., Lovaza, Lyrica, Nephro-Eva, Neurontin, PhosLo, Protonix, Revatio 20 b.i.d., Singulair, Starlix, TriCor, Xalatan, Zofran. ASSESSMENT AND PLAN 1. Status post cardiac arrest, symptomatic bradycardia, now with pacemaker. 2. Coronary artery disease, recent stent to the left anterior descending artery. 3. Pulmonary hypertension. 4. Mvj-bhjahor-vzyenjeva diabetes mellitus. 5. Hypertension. 6. End-stage renal disease. 7. Peripheral vascular disease. 8. Anemia of chronic kidney disease. 9. Secondary hyperparathyroidism. PLAN 1. Continue beta-valerie as tolerated. 2. Dialysis tomorrow. 3. Continue phosphate binders. 4. Physical therapy. 5. Discharge planning. Eva Malcolm MD
--- NOTE | 2017-06-29 15:21 | PN ---
DATE: REASON FOR CONSULTATION AND FOLLOWUP: Sick sinus syndrome, history of permanent pacemaker 2 days ago, history of coronary artery disease, history of multiple stents, on dialysis, diabetic. SUBJECTIVE: The patient denies any chest pain, shortness of breath, or any palpitations. Feels a lot better. OBJECTIVE: GENERAL: Not in apparent distress. VITAL SIGNS: Temperature afebrile, heart rate 70, blood pressure 112/54. HEENT: PERRLA. Extraocular muscles intact. NECK: Supple. No carotid bruits or thyromegaly. CHEST: Clear to auscultation. HEART: S1 and S2, regular. ABDOMEN: Soft. EXTREMITIES: Clubbing and cyanosis negative. LABORATORY DATA: Blood workup as follows: WBC 5.4, hemoglobin 9.3, hematocrit 29.9, and platelet count 128. Chemistry shows sodium 130, potassium 5, chloride 94, carbon dioxide 28, anion gap 19. BUN 46 and creatinine 9.6. IMPRESSION: End-stage renal disease, on dialysis; coronary artery disease, history of multiple stents; sick sinus syndrome, status post permanent pacemaker; diabetes; hypertension; hyperlipidemia; obesity; obstructive sleep apnea. RECOMMENDATIONS: Resume back metoprolol, was held because of bradycardia. Now, since the patient has a pacemaker, beta-valerie was restarted. Continue aspirin. Continue Plavix. Continue beta-valerie as ordered. Continue atorvastatin. Medically, can be discharged. Stable from cardiology point of view to be discharged. Dressing change to the pacemaker is Dermabond. I advised the patient to take shower and padded with towels. Do not rub. Upon discharge, we will see in the office in one week. Jarred Erickson MD
[2017-06-29] MEDS: Latanoprost 2.5 ml Opht Soln OU SCH (21:59)
[2017-06-30] MEDS: Albuterol-Ipratrop 3 mg / 0.5 (3 ml) UD IH SCH ×2 (02:47→07:57)
[2017-06-30 04:56] VITALS: RESP 13; TEMP 98.1; O2SAT 99
[2017-06-30] MEDS ORDERED: Morphine 4 mg/ml ISec IVP PRN (06:37)
--- NOTE | 2017-06-30 07:21 | PN ---
DATE: 06/29/2017 SUBJECTIVE: The patient is a 52-year-old male. Patient is seen and examined at bedside on 06/29/2017. Patient is still in ICU, awake and alert, moving all 4 extremities, following simple commands. Still having pain in the right side of the chest. Denies any chest tightness. No fever. No chills. No palpitation. PHYSICAL EXAMINATION: VITAL SIGNS: Temperature 98.6, pulse 63, blood pressure 112/54, respiratory rate 18. HEENT: Head, normocephalic and atraumatic. Eyes, PERRLA. Extraocular muscles intact. Conjunctivae clear. Nose patent. Mucous membranes moist. NECK: Supple. No carotid bruit. No JVD. No thyromegaly. LUNGS/CHEST: No chest pain. Lungs, bilateral equal air entry. Bibasilar rales. HEART: S1, S2 positive. Regular rate and rhythm. Positive for murmur. No rub. ABDOMEN: Soft. Bowel sounds present. No organomegaly. Obese. EXTREMITIES: Chronic stasis changes. Hairless skin. Hyperpigmentation, but no edema, no cyanosis. NEUROLOGIC: Patient is awake, alert. Moving all four extremities. No focal deficits. LABORATORY DATA: White blood cells 5.4, hemoglobin 9.3, hematocrit 29.9, platelets 128. ASSESSMENT AND PLAN: Mr. Jason Berger is 52-year-old male status post cardiac arrest, symptomatic bradycardia, now with pacemaker, coronary artery disease status post stent to the left anterior descending artery, pulmonary hypertension, non-insulin dependent diabetes mellitus, hypertension, end-stage renal disease, peripheral vascular disease, anemia of chronic kidney disease, secondary hyperparathyroidism. Continue beta-blockers, as per routine dialysis tomorrow. Continue phosphate binders. Physical therapy. Out of bed. Seen by supervisor fish processing and sports book server and reviewed Dr. Escalera's notes. Diana Kessler MD [facility]
--- NOTE | 2017-06-30 08:41 | PN ---
DATE: 06/29/2017 PULMONARY PROGRESS NOTE REFERRING PHYSICIAN: Dr. Kessler. SUBJECTIVE: The patient is sitting up in a bed. Friends and family at bedside. Night was unremarkable. Tolerated BiPAP. There is no headache. No rhinitis. No cough. No nausea. No vomiting or diarrhea. No leg pain or leg swelling. OBJECTIVE: GENERAL: In no acute distress. VITAL SIGNS: Temperature is 98, heart rate 60, respiratory rate is 20, blood pressure 108/33, pulse ox 98% on nasal cannula. HEENT: Moist mucous membrane. Crowded airway. Mallampati score is 4. NECK: Supple. No JVD. Pacemaker site looks okay. HEART: S1 and S2. ABDOMEN: Soft, nontender. No organomegaly. EXTREMITIES: No edema. NEUROLOGIC: Awake and alert. Follows simple command. MEDICATIONS: He is on Ambien 5 mg at bedtime p.r.n., hydralazine 20 mg twice a day, Brilinta 90 mg twice a day, Cepacol lozenges every 2 hours p.r.n., Claritin 10 mg daily, Colace 100 mg twice a day, vitamin D one capsule given, DuoNeb every 6 hours, Ecotrin 81 mg daily, Flomax 0.4 mg daily, insulin coverage, Lipitor 10 mg daily, metoprolol tartrate 25 mg twice a day, Lovaza 2 g twice a day, Lyrica 50 mg daily, metronidazole 1 g topical cream, Nephro-vitamins daily, Neurontin 300 mg daily, nasal saline one spray each nostril every 2 hours, PhosLo three times a day, Protonix 40 mg daily, Revatio 20 mg twice a day, Singulair 10 mg daily, Starlix 60 mg a.c.l. and 120 mg a.c.b., TriCor 145 mg daily, Zofran on p.r.n. basis. LABORATORY DATA: Shows blood sugar is 85. IMPRESSION AND PLAN: Cardiac arrhythmia; bradycardia requiring pacemaker, chronic obstructive lung disease; obstructive sleep apnea syndrome, pulmonary hypertension, diabetes, retinopathy, nephropathy, dialysis dependent, activities of daily living dysfunction. Pulmonary point of view, doing okay. Encourage bilevel positive airway pressure use. Keep head at 45 degrees. Bronchodilator. Fall precaution. Restarted on beta-valerie. Will benefit from therapy. Follow up labs in the morning. Thank you and we will follow with you. Jarred Escalera MD [facility] # [id number]
[2017-06-30] MEDS: Insulin Human NPH 1 UNITS/0.01 ML SC SCH (08:57)
[2017-06-30] MEDS: Insulin Reg-HIGH-Coverage SC SCH ×2 (08:58→09:00)
[2017-06-30] MEDS: Multivitamin Vitamin B Complex (Nephro-Vite) Tab PO SCH (09:01)
[2017-06-30] MEDS: VOLTAREN GEL TOP SCH (09:14)
[2017-06-30] MEDS: Omega-3-Acid Ethyl Esters 1 GM Cap PO SCH (09:37)
[2017-06-30] MEDS: MetroNIDAZOLE 0.75% Cream(45 gm) TOP SCH (09:38)
[2017-06-30] MEDS: Sildenafil 20 MG TAB PO SCH (09:39)
[2017-06-30] MEDS: Pantoprazole 40 mg EC Tab PO SCH (09:47)
[2017-06-30 10:12] VITALS: BP 142/43
--- NOTE | 2017-06-30 12:18 | CP.PCM.DIS ---
<Lyn Fang - Last Filed: 06/30/17 12:14> Provider - Provider Date of Admission: 06/23/17 22:02 Attending physician: Diana Kessler MD Primary care physician: Diana Kessler MD Consults: Cardio - Nephro - Dr. Malcolm Pulmo - Dr. Escalera Time Spent in preparation of Discharge (in minutes): 35 Diagnosis - Discharge Diagnosis (1) Tachy-chase syndrome Status: Acute (2) Chest pain Status: Acute (3) Renal failure Status: Acute (4) Pulmonary hypertension, moderate to severe Status: Acute (5) Shortness of breath Status: Acute Hospital Course - Lab Results Lab Results: Micro Results 06/24/17 16:00 Naris MRSA Culture (Admit) - Final MRSA NOT DETECTED Most Recent Lab Values WBC 5.4 10^3/ul (4.5-11.0) 06/28/17 05:00 RBC 3.17 10^6/uL (3.5-6.1) L 06/28/17 05:00 Hgb 9.3 g/dL (14.0-18.0) L 06/28/17 05:00 Hct 29.9 % (42.0-52.0) L 06/28/17 05:00 MCV 94.3 fl (80.0-105.0) 06/28/17 05:00 MCH 29.3 pg (25.0-35.0) 06/28/17 05:00 MCHC 31.1 g/dl (31.0-37.0) 06/28/17 05:00 RDW 16.9 % (11.5-14.5) H 06/28/17 05:00 Plt Count 128 10^3/uL (120.0-450.0) 06/28/17 05:00 MPV 12.1 fl (7.0-11.0) H 06/28/17 05:00 Gran % 72.7 % (50.0-68.0) H 06/28/17 05:00 Lymph % (Auto) 14.6 % (22.0-35.0) L 06/28/17 05:00 [place] % (Auto) 9.1 % (1.0-6.0) H 06/28/17 05:00 Eos % (Auto) 3.2 % (1.5-5.0) 06/28/17 05:00 Baso % (Auto) 0.4 % (0.0-3.0) 06/28/17 05:00 Gran # 3.90 (1.4-6.5) 06/28/17 05:00 Lymph # (Auto) 0.8 (1.2-3.4) L 06/28/17 05:00 [place] # (Auto) 0.5 (0.1-0.6) 06/28/17 05:00 Eos # (Auto) 0.2 (0.0-0.7) 06/28/17 05:00 Baso # (Auto) 0.02 K/mm3 (0.0-2.0) 06/28/17 05:00 PT 16.3 SECONDS (9.4-12.5) H 06/27/17 05:50 INR 1.41 (0.93-1.08) H 06/27/17 05:50 APTT 28.3 Seconds (25.1-36.5) 06/23/17 20:47 Plt P2Y12 React Units 244 PRU (194-418) 06/24/17 11:40 Sodium 136 mmol/L (132-148) 06/28/17 05:00 Potassium 5.0 mmol/L (3.6-5.0) 06/28/17 05:00 Chloride 94 mmol/L (98-107) L 06/28/17 05:00 Carbon Dioxide 28 mmol/L (21-33) 06/28/17 05:00 Anion Gap 19 (10-20) 06/28/17 05:00 BUN 46 mg/dL (7-21) H 06/28/17 05:00 Creatinine 9.6 mg/dl (0.8-1.5) H* D 06/28/17 05:00 Est GFR ( Amer) 7 06/28/17 05:00 Est GFR (Non-Af Amer) 6 06/28/17 05:00 POC Glucose (mg/dL) 197 mg/dL (65-110) H 06/30/17 07:47 Random Glucose 254 mg/dL (70-110) H 06/28/17 05:00 Hemoglobin A1c 8.1 % (4.2-6.5) H 06/28/17 07:00 Calcium 8.8 mg/dL (8.4-10.5) 06/28/17 05:00 Phosphorus 6.0 mg/dL (2.5-4.5) H 06/28/17 05:00 Magnesium 2.2 mg/dL (1.7-2.2) 06/28/17 05:00 Total Bilirubin 0.6 mg/dL (0.2-1.3) 06/28/17 05:00 AST 178 U/L (17-59) H D 06/28/17 05:00 ALT 256 U/L (7-56) H 06/28/17 05:00 Alkaline Phosphatase 56 U/L (38-126) 06/28/17 05:00 Lactate Dehydrogenase 1523 U/L (333-699) H 06/23/17 20:47 Total Creatine Kinase 253 U/L (35-230) H 06/23/17 20:47 CK-MB (CK-2) 5.4 ng/mL (0.0-3.6) H 06/23/17 20:47 CK-MB (CK-2) % 2.1 % (2.5-3.0) L 06/23/17 20:47 Troponin I 0.30 ng/mL H* D 06/28/17 05:00 NT-Pro-B Natriuret Pep 24588 pg/mL (0-450) H 06/23/17 20:47 Total Protein 7.9 g/dL (5.8-8.3) 06/28/17 05:00 Albumin 3.7 g/dL (3.0-4.8) 06/28/17 05:00 Globulin 4.1 gm/dL 06/28/17 05:00 Albumin/Globulin Ratio 0.9 (1.1-1.8) L 06/28/17 05:00 - Hospital Course Hospital Course: 52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 stents, TIA, & asthma. On 06/12, pt went for cardiac cath through R groin with new cardiac stent insertion. Pt re-admitted to [facility] with renal failure, dizziness ( secondary to hypotension), and chest pain. After becoming unresponsive, pt was found to have elevated serial tropins, NSTEMI and hypotension. Pt was transferred to ICU for elevated troponins and dopamine drip. He was discharged home on 06/14 and re-admitted on 06/16 for bradycardia & chest pain and discharged home. On 06/23/17, pt re-admitted to [facility] ER for chest pain after missing dialysis and shortness of breath related to pulmonary HTN. On 06/24/17 MACHINE HOSTLER called for hypotension and patient was transferred to ICU/CCU for atropine and IV dopamine. On 06/27, R chest wall AICD/PPM insertion. Per polymer scientist, betablocker, asa, atorvastatin ordered and pt is cleared for discharge home. Reviewed: ECG = ABNORMAL, junctional rhythm, L axis deviation CXR = moderate cardiomegaly. mild vascular congestion Cardiac Cath = stent RCA, EF 55%, mild & distal LAD 70% stenoses w. stent insertion ECHO = EF 55%, mild concentric LVH, severe pulmonary hypertension - Date & Time of H&P Date of H&P: 06/30/17 Time of H&P: 10:00 Discharge Exam - Head Exam Head Exam: ATRAUMATIC, NORMAL INSPECTION, NORMOCEPHALIC - Eye Exam Eye Exam: EOMI, Normal appearance, PERRL Pupil Exam: NORMAL ACCOMODATION, PERRL - ENT Exam ENT Exam: Normal Exam - Neck Exam Neck exam: Full Rom - Respiratory Exam Respiratory Exam: Clear to PA & Lateral, NORMAL BREATHING PATTERN, UNREMARKABLE - Cardiovascular Exam Cardiovascular Exam: REGULAR RHYTHM, +S1, +S2 Additional comments: RCW pacemaker, large bandaid dressing, dermabond closure, C/D/I - GI/Abdominal Exam GI & Abdominal Exam: Normal Bowel Sounds, Unremarkable - Rectal Exam Rectal Exam: NORMAL INSPECTION - Extremities Exam Extremities exam: full ROM, normal inspection Additional comments: AV fistula, C/D/I - Neurological Exam Neurological exam: Alert, CN II-XII Intact, Normal Gait, Oriented x3, Reflexes Normal - Psychiatric Exam Psychiatric exam: Normal Affect, Normal Mood - Skin Skin Exam: Dry, Intact, Normal Color, Warm Discharge Plan - Follow Up Plan Condition: FAIR Disposition: HOME/ ROUTINE Instructions: Hemodialysis (DC), Pacemakers, Chest Pain (DC), Chest Pain (GEN) , Asthma (DC), Asthma (GEN), Renal Failure Diet (DC), Altered Mental Status (GEN ) Referrals: Diana Kessler MD [Primary Care Provider] - <Diana Kessler - Last Filed: 06/30/17 21:27> Provider - Provider Date of Admission: 06/23/17 22:02 Attending physician: Diana Kessler MD Primary care physician: Diana Kessler MD Hospital Course - Lab Results Lab Results: Micro Results 06/24/17 16:00 Naris MRSA Culture (Admit) - Final MRSA NOT DETECTED Most Recent Lab Values WBC 5.4 10^3/ul (4.5-11.0) 06/28/17 05:00 RBC 3.17 10^6/uL (3.5-6.1) L 06/28/17 05:00 Hgb 9.3 g/dL (14.0-18.0) L 06/28/17 05:00 Hct 29.9 % (42.0-52.0) L 06/28/17 05:00 MCV 94.3 fl (80.0-105.0) 06/28/17 05:00 MCH 29.3 pg (25.0-35.0) 06/28/17 05:00 MCHC 31.1 g/dl (31.0-37.0) 06/28/17 05:00 RDW 16.9 % (11.5-14.5) H 06/28/17 05:00 Plt Count 128 10^3/uL (120.0-450.0) 06/28/17 05:00 MPV 12.1 fl (7.0-11.0) H 06/28/17 05:00 Gran % 72.7 % (50.0-68.0) H 06/28/17 05:00 Lymph % (Auto) 14.6 % (22.0-35.0) L 06/28/17 05:00 [place] % (Auto) 9.1 % (1.0-6.0) H 06/28/17 05:00 Eos % (Auto) 3.2 % (1.5-5.0) 06/28/17 05:00 Baso % (Auto) 0.4 % (0.0-3.0) 06/28/17 05:00 Gran # 3.90 (1.4-6.5) 06/28/17 05:00 Lymph # (Auto) 0.8 (1.2-3.4) L 06/28/17 05:00 [place] # (Auto) 0.5 (0.1-0.6) 06/28/17 05:00 Eos # (Auto) 0.2 (0.0-0.7) 06/28/17 05:00 Baso # (Auto) 0.02 K/mm3 (0.0-2.0) 06/28/17 05:00 PT 16.3 SECONDS (9.4-12.5) H 06/27/17 05:50 INR 1.41 (0.93-1.08) H 06/27/17 05:50 APTT 28.3 Seconds (25.1-36.5) 06/23/17 20:47 Plt P2Y12 React Units 244 PRU (194-418) 06/24/17 11:40 Sodium 136 mmol/L (132-148) 06/28/17 05:00 Potassium 5.0 mmol/L (3.6-5.0) 06/28/17 05:00 Chloride 94 mmol/L (98-107) L 06/28/17 05:00 Carbon Dioxide 28 mmol/L (21-33) 06/28/17 05:00 Anion Gap 19 (10-20) 06/28/17 05:00 BUN 46 mg/dL (7-21) H 06/28/17 05:00 Creatinine 9.6 mg/dl (0.8-1.5) H* D 06/28/17 05:00 Est GFR ( Amer) 7 06/28/17 05:00 Est GFR (Non-Af Amer) 6 06/28/17 05:00 POC Glucose (mg/dL) 46 mg/dL (65-110) L 06/30/17 15:46 Random Glucose 254 mg/dL (70-110) H 06/28/17 05:00 Hemoglobin A1c 8.1 % (4.2-6.5) H 06/28/17 07:00 Calcium 8.8 mg/dL (8.4-10.5) 06/28/17 05:00 Phosphorus 6.0 mg/dL (2.5-4.5) H 06/28/17 05:00 Magnesium 2.2 mg/dL (1.7-2.2) 06/28/17 05:00 Total Bilirubin 0.6 mg/dL (0.2-1.3) 06/28/17 05:00 AST 178 U/L (17-59) H D 06/28/17 05:00 ALT 256 U/L (7-56) H 06/28/17 05:00 Alkaline Phosphatase 56 U/L (38-126) 06/28/17 05:00 Lactate Dehydrogenase 1523 U/L (333-699) H 06/23/17 20:47 Total Creatine Kinase 253 U/L (35-230) H 06/23/17 20:47 CK-MB (CK-2) 5.4 ng/mL (0.0-3.6) H 06/23/17 20:47 CK-MB (CK-2) % 2.1 % (2.5-3.0) L 06/23/17 20:47 Troponin I 0.30 ng/mL H* D 06/28/17 05:00 NT-Pro-B Natriuret Pep 03886 pg/mL (0-450) H 06/23/17 20:47 Total Protein 7.9 g/dL (5.8-8.3) 06/28/17 05:00 Albumin 3.7 g/dL (3.0-4.8) 06/28/17 05:00 Globulin 4.1 gm/dL 06/28/17 05:00 Albumin/Globulin Ratio 0.9 (1.1-1.8) L 06/28/17 05:00 - Hospital Course Hospital Course: pt is seen and examined at bed side , looking comfortable , agreed all above , d /d with machinist brake . will f/u
--- NOTE | 2017-06-30 13:17 | PN ---
DATE: REASON FOR CONSULTATION AND FOLLOWUP: Sick sinus syndrome; history of permanent pacemaker 3 days ago; history of coronary artery disease, status post multiple stents in LAD; on dialysis; diabetic. SUBJECTIVE: Patient denies any chest pain, shortness of breath, or any palpitations. OBJECTIVE: GENERAL: Not in apparent distress. He really wanted to go home. VITAL SIGNS: Temperature afebrile, heart rate 60, blood pressure 108/34. HEENT: PERRLA. Extraocular muscles intact. NECK: Supple. No carotid bruits or thyromegaly. CHEST: Clear to auscultation. HEART: S1 and S2, regular. ABDOMEN: Soft. EXTREMITIES: Clubbing and cyanosis negative. LABORATORY DATA: Blood workup as follows: WBC 5.4, hemoglobin 9.8, hematocrit 29.9, and platelet count 128. Chemistry shows sodium day before yesterday 130, potassium 5, chloride 94, carbon dioxide 28, anion gap 19. BUN 46 and creatinine 9.6. IMPRESSION: Sick sinus syndrome; tachybrady syndrome; junctional bradycardia; multiple near syncope and rapid response, status post permanent pacemaker; history of coronary artery disease, status post multiple stents, recent two stents in left anterior descending, mid and distal left anterior descending stent with drug eluting stent; sick sinus syndrome as above; diabetes; hypertension; hyperlipidemia. Full-blown complication of diabetes include diabetic retinopathy, nephropathy, and neuropathy, legally blind. RECOMMENDATION: Resume back metoprolol, was held before and pacemaker because of the bradycardia. Continue aspirin. Continue Brilinta. Patient is resistant to Plavix, do not give Plavix, do not substitute Brilinta from Plavix. Continue aspirin. Continue atorvastatin. Patient is stable from cardiology point of view to be discharged. When he is stable medically, patient can be discharged and cleared from Cardiology. We will follow up. Visit Local Wound. The pacemaker site looks okay. Instruction given to the patient for wound care. Jarred Erickson MD
[2017-06-30 14:04] VITALS: PULSE 63
--- NOTE | 2017-06-30 16:55 | PN ---
DATE: 06/30/2017 SUBJECTIVE: The patient is seen in the dialysis unit. He is awake. He is alert. He is comfortable. Denies any chest pain. Denies any palpitations. PHYSICAL EXAMINATION GENERAL: Middle-aged male sitting in the bed in the dialysis unit. VITAL SIGNS: Blood pressure 142/43, heart rate 60, respiratory rate 13, temperature 98.1. HEENT: Normocephalic, atraumatic. NECK: Supple, no JVD. LUNGS: Bilateral equal air entry, no rales. CARDIAC: S1 and S2, regular rate and rhythm, no murmur, no rub. ABDOMEN: Obese, distended, soft, nontender, bowel sounds present. EXTREMITIES: No lower extremity edema. INTAKE AND OUTPUT: Not charted. LABORATORY DATA: No new labs. MEDICATIONS: List reviewed. ASSESSMENT AND PLAN: 1. Status post symptomatic bradycardia. 2. Status post pacemaker placement. 3. Coronary artery disease, stent to left anterior descending artery. 4. Pulmonary hypertension. 5. End-stage renal disease. 6. [id number] diabetes mellitus. 7. Anemia. PLAN: 1. Stable dialysis. 2. Blood pressure is stable. 3. Heart rate of 60. 4. No objection to discharge. Eva Malcolm MD
== END 2017-06-30 11:51 | disposition home or self-care (01) | DRG 242 ==
LOC: ED 20:07 → ERH 22:02 → 3RSO 23:16 → CCU 06-24 15:38
PROVIDERS: ADMIT Internal Medicine; ATTEND Internal Medicine
PROC: 5A1D70Z Performance of Urinary Filtration, Intermittent, Less than 6 Hours Per Day (ICD-10-PCS; 2017-06-24)
PROC: 5A09457 Assistance with Respiratory Ventilation, 24-96 Consecutive Hours, Continuous Positive Airway Pressure (ICD-10-PCS; 2017-06-24)
PROC: 3E0F7GC Introduction of Other Therapeutic Substance into Respiratory Tract, Via Natural or Artificial Opening (ICD-10-PCS; 2017-06-24)
PROC: 5A1D70Z Performance of Urinary Filtration, Intermittent, Less than 6 Hours Per Day (ICD-10-PCS; 2017-06-26)
PROC: 0JH606Z Insertion of Pacemaker, Dual Chamber into Chest Subcutaneous Tissue and Fascia, Open Approach (ICD-10-PCS; principal; 2017-06-27)
PROC: 02H63JZ Insertion of Pacemaker Lead into Right Atrium, Percutaneous Approach (ICD-10-PCS; 2017-06-27)
PROC: 02HK3JZ Insertion of Pacemaker Lead into Right Ventricle, Percutaneous Approach (ICD-10-PCS; 2017-06-27)
PROC: 5A1D70Z Performance of Urinary Filtration, Intermittent, Less than 6 Hours Per Day (ICD-10-PCS; 2017-06-28)
PROC: 5A1D70Z Performance of Urinary Filtration, Intermittent, Less than 6 Hours Per Day (ICD-10-PCS; 2017-06-30)
DX: I49.5 Sick sinus syndrome (principal); N18.6 End stage renal disease; I13.2 Hypertensive heart and chronic kidney disease with heart failure and with stage 5 chronic kidney disease, or end stage renal disease; N25.81 Secondary hyperparathyroidism of renal origin; I27.20 Pulmonary hypertension, unspecified; Z99.2 Dependence on renal dialysis; E11.22 Type 2 diabetes mellitus with diabetic chronic kidney disease; E11.21 Type 2 diabetes mellitus with diabetic nephropathy; E11.319 Type 2 diabetes mellitus with unspecified diabetic retinopathy without macular edema; E11.42 Type 2 diabetes mellitus with diabetic polyneuropathy; E11.51 Type 2 diabetes mellitus with diabetic peripheral angiopathy without gangrene; E11.649 Type 2 diabetes mellitus with hypoglycemia without coma; D63.1 Anemia in chronic kidney disease; I48.0 Paroxysmal atrial fibrillation; I25.10 Atherosclerotic heart disease of native coronary artery without angina pectoris; J44.9 Chronic obstructive pulmonary disease, unspecified; I50.9 Heart failure, unspecified; G47.33 Obstructive sleep apnea (adult) (pediatric); E87.5 Hyperkalemia; I42.9 Cardiomyopathy, unspecified; E78.00 Pure hypercholesterolemia, unspecified; I08.3 Combined rheumatic disorders of mitral, aortic and tricuspid valves; M10.9 Gout, unspecified; K21.9 Gastro-esophageal reflux disease without esophagitis; H54.8 Legal blindness, as defined in USA; E66.9 Obesity, unspecified; Z68.33 Body mass index [BMI] 33.0-33.9, adult; Z79.4 Long term (current) use of insulin; Z94.7 Corneal transplant status; Z95.5 Presence of coronary angioplasty implant and graft; Z86.73 Personal history of transient ischemic attack (TIA), and cerebral infarction without residual deficits; Z88.0 Allergy status to penicillin

== ENCOUNTER 2017-07-03 01:18 | Inpatient (IN) | payer MEDICARE, OTHER ==
--- NOTE | 2017-07-03 01:55 | ED PDOC ---
Arrival/HPI - General Time Seen by Provider: 07/03/17 01:27 Historian: Patient - History of Present Illness Narrative History of Present Illness (Text): you were treated in the ED today for hx of ESRD on dialysis from Left upper arm fistula which you had last Monday, Asthma, hypertension, CAD with stent placed and PPM/AICD 06/27/17, and now with generalized chest pain and difficulty breathing, otherwise without any nausea/vomiting/headache/dizziness/difficulty breathing/chest pain/abdomen pain/numbness/tingling/loss of limb function/pain with urination/travel/prior blood clots/prior cancer/drug use. Time/Duration: 4-6 hours Symptom Onset: Gradual Symptom Course: Unchanged Quality: Aching Severity Level: 2 Activities at Onset: Rest Context: Sitting Past Medical History - Provider Review Nursing Documentation Reviewed: Yes - Travel History Have you recently traveled outside [place] w/in the past 3 mons?: No - Past History Past History: No Previous - Infectious Disease Hx of Infectious Diseases: None - Tetanus Immunization Tetanus Immunization: Up to Date - Reproductive Currently Lactating: No - Cardiac Hx Congestive Heart Failure: Yes Hx Hypertension: Yes - Pulmonary Hx Chronic Obstructive Pulmonary Disease (COPD): Yes - Neurological Hx Transient Ischemic Attacks (TIA): Yes - HEENT Hx HEENT Disorder: Yes (BILATERAL EYE WITH BLURRY VISION) Hx Cataracts: Yes (HAD SX 05/29/12) Other/Comment: left eye cornea transplant,RENAL RETINOPATHY, glasses - Renal Date of Last Dialysis Treatment: 06/21/17 Other/Comment: m/w/f [facility] - Endocrine/Metabolic Hx Diabetes Mellitus Type 1: Yes - Hematological/Oncological Hx Anemia: Yes (With transfusions) - Integumentary Hx Dermatological Disorder: Yes (BILATERAL EDEMA TO UPPER AND LE,SKIN DRYNESS) - Musculoskeletal/Rheumatological Hx Falls: No Hx Gout: Yes Hx Unsteady Gait: Yes Other/Comment: Use of cane - Gastrointestinal Hx Gastrointestinal Disorders: (hx pancreatitis) Hx Gall Bladder Disease: Yes (CHOLECYSTECTOMY) Hx Gastroesophageal Reflux: Yes Hx Liver Failure: Yes (CKD) Hx Pancreatitis: Yes - Genitourinary/Gynecological Hx Genitourinary Disorders: Yes - Psychiatric Hx Psychophysiologic Disorder: No Hx Substance Use: No - Surgical History Hx Cholecystectomy: Yes (08/15/12) Hx Coronary Stent: Yes (monday06/13/17) Other/Comment: FISTULA - Anesthesia Hx Anesthesia: Yes Hx Anesthesia Reactions: No Hx Malignant Hyperthermia: No - Suicidal Assessment Feels Threatened In Home Enviroment: No Family/Social History - Physician Review Nursing Documentation Reviewed: Yes Family/Social History: No Known Family HX Smoking Status: Never Smoked Hx Alcohol Use: No Hx Substance Use: No Hx Substance Use Treatment: No Allergies/Home Meds Allergies/Adverse Reactions: Allergies insulin aspart [From Novolog] Allergy (Intermediate, Verified 07/03/17 01:25) ITCHING ANY INSULIN THAT STARTS WITH NOV- moxifloxacin Allergy (Intermediate, Verified 07/03/17 01:25) ITCHING Penicillins Allergy (Intermediate, Verified 07/03/17 01:25) ITCHING Home Medications: Home Meds Medication Instructions Recorded Confirmed Calcium Phosphate 2 cap PO TID 06/14/17 06/23/17 Dexlansoprazole [Dexilant] 1 cap PO DAILY 06/14/17 06/23/17 Diclofenac Sodium [Voltaren] 1 appl TOP DAILY 06/14/17 06/23/17 Gabapentin [Neurontin] 300 mg PO TID 06/14/17 06/23/17 HumuLIN R 90 units SQ ACB 06/14/17 06/23/17 HumuLIN R 90 units SQ ACD 06/14/17 06/23/17 Humulin N 70 units SQ ACD 06/14/17 06/23/17 Humulin N 80 units SQ ACB 06/14/17 06/23/17 Lumigan 1 drop OU HS 06/14/17 06/23/17 Nateglinide [Starlix] 1 tab PO ACL 06/14/17 06/23/17 Salmeterol Xinafoate/Fluticaso 1 puff INH BID 06/14/17 06/23/17 [Advair Hfa 230-21] Zyrtec 10 mg PO HS 06/14/17 06/23/17 hydrALAZINE 20 mg PO BID 06/14/17 06/23/17 metroNIDAZOLE 0.75% 1 appl TOP DAILY 06/14/17 06/23/17 Ergocalciferol (Vitamin D2) 50,000 unit PO DAILY 06/16/17 06/23/17 [Vitamin D2] Fenofibrate [Triglide] 160 mg PO DAILY 06/16/17 06/23/17 Multivitamin with Iron 1 each PO DAILY 06/16/17 06/23/17 [Multivitamins with Iron] Nateglinide 2 tab PO ACD 06/16/17 06/23/17 [place]-3S/Dha/Epa/Fish Oil [Fish 2 cap PO BID 06/16/17 06/23/17 Oil [place]-3 Softgel] Pregabalin [Lyrica] 50 mg PO TID 06/16/17 06/23/17 Rosuvastatin Calcium [Crestor] 10 mg PO DAILY 06/16/17 06/23/17 Tamsulosin HCl [Flomax] 0.4 mg PO DAILY 06/16/17 06/23/17 Review of Systems - Physician Review All systems were reviewed & negative as marked: Yes - Review of Systems Constitutional: Normal Eyes: Normal ENT: Normal Respiratory: SOB Cardiovascular: Chest Pain Gastrointestinal: Normal Genitourinary Male: Normal Musculoskeletal: Normal Skin: Normal Neurological: Normal Endocrine: Normal Hemo/Lymphatic: Normal Psychiatric: Normal Physical Exam Vital Signs Reviewed: Yes Vital Signs Temp Pulse Resp BP Pulse Ox 07/03/17 02:27 61 21 130/64 100 07/03/17 01:28 98.7 F 61 20 137/67 96 Temperature: Afebrile Blood Pressure: Hypertensive Pulse: Regular Respiratory Rate: Normal Appearance: Positive for: Well-Appearing, Non-Toxic, Comfortable Pain Distress: None Mental Status: Positive for: Alert and Oriented X 3 - Systems Exam Head: Present: Atraumatic, Normocephalic Pupils: Present: PERRL Extroacular Muscles: Present: EOMI Conjunctiva: Present: Normal Ears: Present: Normal Mouth: Present: Moist Mucous Membranes Pharnyx: Present: Normal Nose (Internal): Present: Normal Inspection Neck: Present: Normal Range of Motion Respiratory/Chest: Present: Clear to Auscultation, Good Air Exchange Cardiovascular: Present: Regular Rate and Rhythm Abdomen: No: Tenderness, Distention, Normal Bowel Sounds, Peritoneal Signs, Rebound, Guarding, McBurney's Point Tender, Rovsing's Sign Present, Hernias, Feeding Tubes, Ostomy Tubes, Mass/Organomegaly, Scars, Other Back: Present: Normal Inspection Upper Extremity: Present: Normal Inspection Lower Extremity: Present: Edema Neurological: Present: GCS=15, CN II-XII Intact, Speech Normal, Motor Func Grossly Intact Skin: Present: Warm, Other (chest wall bruising) Psychiatric: Present: Alert, Oriented x 3, Normal Insight, Normal Concentration Medical Decision Making ED Course and Treatment: you were treated in the ED today for hx of ESRD on dialysis from Left upper arm fistula which you had last Monday, Asthma, hypertension, CAD with stent placed and PPM/AICD 06/27/17, and now with generalized chest pain and difficulty breathing, otherwise without any nausea/vomiting/headache/dizziness/difficulty breathing/chest pain/abdomen pain/numbness/tingling/loss of limb function/pain with urination/travel/prior blood clots/prior cancer/drug use. You were otherwise breathing easily, pink moist lips, smiling and talking easily, good strength/sensation, alert/oriented, clear lungs, no abdomen tenderness, chest bruising, and mild both lower legs swelling, no fever temp 98.7, stable heart rate 61, stable breathing rate 20, excellent oxygen level 96% room air, elevated blood pressure 137/67_ which we recommend repeat in 2-3 days primary care office to determine further treatment, you have blood tests no infection count 5, stable blood level hemoglobin 9.8/platelets 113, potassium 6.4 calcium given and pt with insulin aspart allergy, creatinine 9.4, troponin 0.08 indeterminate, ECG electronically paced, you took your aspirin and brillinta already before coming in, observation, done in the ED with improvement. Chest X-ray: TECHNIQUE: Frontal view of the chest 2:05 AM 07/03/2017. COMPARISON: DX - CHEST TWO VIEWS (PA/LAT) 2017-06-28 10:35 FINDINGS: Lungs: Lung volumes are low with crowding of the bronchovascular markings. Mildly enlarged central pulmonary vascularity. Mild bibasilar atelectasis. Pleural space: Costophrenic angles are blunted suggesting small pleural effusions. No pneumothorax. Heart: The cardiac silhouette is moderately enlarged secondary to cardiomegaly or pericardial effusion. Mediastinum: Unremarkable. IMPRESSION: Moderately enlarged cardiac silhouette secondary to pericardial effusion or cardiomegaly. Small bilateral pleural effusions. Possible mild central pulmonary venous congestion d/w Dr. Kessler and she accepted the patient for telemetry, lasix dose, and consult nephrology Dr. Malcolm for HD consideration elevated potassium 6.4 and calcium given in the mean time as pt has insulin allergy and consult cardiology Dr. Goodwin. Reassessment Condition: Re-examined, Improved - Lab Interpretations Lab Results: 07/03/17 02:12 07/03/17 02:12 Lab Results 07/03/17 02:12: Sodium 139, Potassium 6.4 H* D, Chloride 95 L, Carbon Dioxide 29 , Anion Gap 22 H, BUN 63 H, Creatinine 9.4 H*, Est GFR ( Amer) 7, Est GFR (Non-Af Amer) 6, Random Glucose 199 H, Calcium 8.9, Magnesium 2.6 H, Total Bilirubin 1.2, AST 176 H, ALT 119 H, Alkaline Phosphatase 57, Lactate Dehydrogenase 1286 H, Total Creatine Kinase 354 H, CK-MB (CK-2) 6.3 H, CK-MB (CK -2) % 1.8 L, Troponin I 0.08 D, NT-Pro-B Natriuret Pep 27355 H, Total Protein 8.4 H, Albumin 4.3, Globulin 4.2, Albumin/Globulin Ratio 1.0 L 07/03/17 02:12: PT 19.2 H, INR 1.67 H, APTT 33.4 07/03/17 02:12: WBC 5.1, RBC 3.32 L, Hgb 9.8 L, Hct 31.2 L, MCV 94.0, MCH 29.5, MCHC 31.4, RDW 17.2 H, Plt Count 113 L, MPV 12.9 H, Gran % 73.3 H, Lymph % (Auto ) 16.9 L, [place] % (Auto) 7.8 H, Eos % (Auto) 1.6, Baso % (Auto) 0.4, Gran # 3.77 , Lymph # (Auto) 0.9 L, [place] # (Auto) 0.4, Eos # (Auto) 0.1, Baso # (Auto) 0.02 I have reviewed the lab results: Yes - RAD Interpretation Radiology Orders: 07/03/17 01:41 CHEST PORTABLE [RAD] Stat Director Of Extension Work: ED Physician - EKG Interpretation Interpreted by ED Physician: Yes (electronically paced) Type: 12 lead EKG - Medication Orders Current Medication Orders: Calcium Gluconate 1,000 mg/ (Sodium Chloride) 110 mls @ 110 mls/hr IVPB ONCE ONE Stop: 07/03/17 04:18 Disposition/Present on Arrival - Present on Arrival Any Indicators Present on Arrival: No History of DVT/PE: No History of Uncontrolled Diabetes: Yes Urinary Catheter: No History Surgical Site Infection Following: None - Disposition Have Diagnosis and Disposition been Completed?: Yes Diagnosis: Pulmonary edema, Shortness of breath, ESRD (end stage renal disease), Chest pain, Hyperkalemia Disposition: HOSPITALIZED Disposition Time: 03:39 Patient Plan: Admission, Telemetry Condition: IMPROVED Discharge Instructions (ExitCare): Chest Pain (ED)
[2017-07-03 02:30] LABS: BASO # 0.02 K/mm3 (0.0-2.0); BASO % 0.4 % (0.0-3.0); EOS # 0.1 (0.0-0.7); EOS % 1.6 % (1.5-5.0); GRAN # 3.77 (1.4-6.5); GRAN % 73.3 % (50.0-68.0); HEMOGLOBIN 9.8 g/dL (14.0-18.0); LYMPH # 0.9 (1.2-3.4); LYMPH % 16.9 % (22.0-35.0); MEAN CORPUSCULAR HEMOGLOBIN 29.5 pg (25.0-35.0); MEAN CORPUSCULAR HGB CONC 31.4 g/dl (31.0-37.0); MEAN PLATELET VOLUME 12.9 fl (7.0-11.0); MONO # 0.4 (0.1-0.6); MONO % 7.8 % (1.0-6.0); RBC 3.32 10^6/uL (3.5-6.1); RED CELL DISTRIBUTION WIDTH 17.2 % (11.5-14.5); WHITE BLOOD COUNT 5.1 10^3/ul (4.5-11.0)
[2017-07-03 02:36] LABS: INR 1.67 (0.93-1.08); PARTIAL THROMBOPLASTIN TIME 33.4 Seconds (25.1-36.5); PROTHROMBIN TIME 19.2 SECONDS (9.4-12.5)
--- NOTE | 2017-07-03 02:37 | RAD ---
EXAM: XR Chest, 1 View CLINICAL HISTORY: 52 years old, male; Pain; Chest pain; Additional info: 52m, chest pain/sob TECHNIQUE: Frontal view of the chest 2:05 AM 07/03/2017. COMPARISON: DX - CHEST TWO VIEWS (PA/LAT) 2017-06-28 10:35 FINDINGS: Lungs: Lung volumes are low with crowding of the bronchovascular markings. Mildly enlarged central pulmonary vascularity. Mild bibasilar atelectasis. Pleural space: Costophrenic angles are blunted suggesting small pleural effusions. No pneumothorax. Heart: The cardiac silhouette is moderately enlarged secondary to cardiomegaly or pericardial effusion. Mediastinum: Unremarkable. IMPRESSION: Moderately enlarged cardiac silhouette secondary to pericardial effusion or cardiomegaly. Small bilateral pleural effusions. Possible mild central pulmonary venous congestion.
[2017-07-03 02:55] LABS: TROPONIN I 0.08 ng/mL
[2017-07-03 03:00] LABS: ALBUMIN 4.3 g/dL (3.0-4.8); CALCIUM 8.9 mg/dL (8.4-10.5)
[2017-07-03 03:10] LABS: CK MB% 1.8 % (2.5-3.0); CK-MB 6.3 ng/mL (0.0-3.6)
[2017-07-03 04:50] VITALS: BMI 36.5
[2017-07-03] MEDS: Insulin Reg-LOW-Coverage SC SCH ×4 (08:53→22:48)
[2017-07-03] MEDS: SALMETEROL XINAFOATE INH SCH ×2 (10:00→17:09)
[2017-07-03] MEDS: CALCIUM PHOSPHATE PO SCH ×3 (10:00→17:08)
[2017-07-03] MEDS: FLUTICASO INH SCH ×2 (10:00→17:09)
[2017-07-03 11:06] LABS: TROPONIN I 0.09 ng/mL
[2017-07-03 11:10] LABS: ALBUMIN 3.9 g/dL (3.0-4.8); CALCIUM 8.7 mg/dL (8.4-10.5)
[2017-07-03] MEDS: Pantoprazole 40 mg EC Tab PO SCH (14:47)
--- NOTE | 2017-07-03 15:00 | CT ---
PROCEDURE: CT Chest without contrast HISTORY: pneumonia COMPARISON: July 03, 2017. Single-view chest TECHNIQUE: Contiguous axial images were obtained through the chest without intravenous contrast enhancement. Sagittal and coronal reconstructions were performed. Radiation dose (DLP): 695.7 mGy-cm. This CT exam was performed using one or more of the following dose reduction techniques: Automated exposure control, adjustment of the mA and/or kV according to patient size, and/or use of iterative reconstruction technique. FINDINGS: LUNGS: Subsegmental multifocal infiltrates affecting all lobes of the right lung and primarily left lower lobe and to lesser extent left upper lobe. The findings are likely infectious/ inflammatory. MEDIASTINUM: Unremarkable thoracic aorta. No aneurysm. Cardiomegaly. Trace pericardial effusion. Main pulmonary artery unremarkable. No vascular congestion. No lymphadenopathy. PLEURA: No pleural fluid. No pneumothorax. BONES: No fracture. No destructive lesion. UPPER ABDOMEN: Grossly unremarkable. OTHER FINDINGS: None. IMPRESSION: Multiple bilateral subsegmental infiltrates. Otherwise unremarkable study.
[2017-07-03] MEDS ORDERED: Azithromycin 500MG/NS 250ml 500 MG/250 ML BAG IVPB STA (15:19)
[2017-07-03] MEDS ORDERED: Vancomycin 1gm in NS 250ml 1 GM/250 ML BAG IVPB STA (18:26)
--- NOTE | 2017-07-03 20:34 | CARD ---
APPROVED REPORT EKG Measurement Heart [id number] W[place] P0 [id number] <Conclusion> Electronic ventricular pacemaker
--- NOTE | 2017-07-03 23:39 | CP.PCM.PN ---
Subjective - Date & Time of Evaluation Date of Evaluation: 07/03/17 Time of Evaluation: 23:39 - Subjective Subjective: Nurse calls and tells that he has upper mid back and shoulders pain. Patient was seen at bedside. He complains of left arm and shoulder pain for past 3 days. Denies chest pain, sob, nausea, sweating , palpitations. Medical record was reviewed. This 52 year old male was admitted with generalized chest pain and difficulty in breathing. Has PMH of HTN, DM, CAD, coronary stent placement, anemia, COPD, CHF, diabetic neruopathy, diabetic retinopathy, blood transfusions, ESRD , AV fistula placement. Objective - Vital Signs/Intake and Output Vital Signs (last 24 hours): Temp Pulse Resp BP Pulse Ox 98.9 F 61 18 136/52 L 97 07/03/17 18:00 07/03/17 21:43 07/03/17 18:00 07/03/17 18:00 07/03/17 18:00 - Medications Medications: Current Medications Acetylcysteine (Acetylcysteine 20%) 3 ml INH BID CARLOS Albuterol/Ipratropium (Duoneb 3 Mg/0.5 Mg (3 Ml) Ud) 3 ml IH [id number] [facility] Aspirin (Ecotrin) 81 mg PO DAILY CAR[facility] Atorvastatin Calcium (Lipitor) 40 mg PO DIN [facility] Last Admin: 07/03/17 17:18 Dose: 40 mg Azithromycin (Zithromax) 500 mg PO DAILY [facility] PRN Reason: Protocol Calcium Acetate (Phoslo) 1,334 mg PO WM [facility] Last Admin: 07/03/17 17:16 Dose: 1,334 mg Docusate Sodium (Colace) 100 mg PO BID [facility] Last Admin: 07/03/17 17:18 Dose: 100 mg Gabapentin (Neurontin) 300 mg PO DAILY [facility] PRN Reason: Protocol Last Admin: 07/03/17 17:16 Dose: 300 mg Meropenem 250 mg/ Sodium (Chloride) 100 mls @ 100 mls/hr IVPB Q12H [facility] PRN Reason: Protocol Stop: 07/10/17 18:31 Last Admin: 07/03/17 20:38 Dose: Not Given Insulin Human Regular (Humulin R Low) 0 units SC ACHS [facility] PRN Reason: Protocol Last Admin: 07/03/17 22:48 Dose: Not Given Metoprolol Tartrate (Lopressor) 25 mg PO BID [facility] Last Admin: 07/03/17 17:18 Dose: Not Given Non-Formulary Medication (Calcium Phosphate) 2 cap PO TID [facility] Last Admin: 07/03/17 17:08 Dose: Not Given Salmeterol Xinafoate /Fluticaso [Advair Hfa 230-21] 1 Puff) 1 puff INH BID [facility] Last Admin: 07/03/17 17:09 Dose: Not Given Pantoprazole Sodium (Protonix Ec Tab) 40 mg PO DAILY [facility] Last Admin: 07/03/17 14:47 Dose: 40 mg Prednisone (Prednisone Tab) 20 mg PO DAILY [facility] Pregabalin (Lyrica) 50 mg PO DAILY [facility] Last Admin: 07/03/17 17:21 Dose: Not Given Ticagrelor (Brilinta) 90 mg PO BID [facility] Last Admin: 07/03/17 17:18 Dose: 90 mg Zolpidem Tartrate (Ambien) 5 mg PO HS PRN; Protocol PRN Reason: Insomnia Last Admin: 07/03/17 22:27 Dose: 5 mg - Labs Labs: 07/03/17 10:30 PT 19.2 SECONDS (9.4-12.5) H 07/03/17 02:12 INR 1.67 (0.93-1.08) H 07/03/17 02:12 APTT 33.4 Seconds (25.1-36.5) 07/03/17 02:12 Most Recent Lab Values WBC 5.1 10^3/ul (4.5-11.0) 07/03/17 02:12 RBC 3.32 10^6/uL (3.5-6.1) L 07/03/17 02:12 Hgb 9.8 g/dL (14.0-18.0) L 07/03/17 02:12 Hct 31.2 % (42.0-52.0) L 07/03/17 02:12 MCV 94.0 fl (80.0-105.0) 07/03/17 02:12 MCH 29.5 pg (25.0-35.0) 07/03/17 02:12 MCHC 31.4 g/dl (31.0-37.0) 07/03/17 02:12 RDW 17.2 % (11.5-14.5) H 07/03/17 02:12 Plt Count 113 10^3/uL (120.0-450.0) L 07/03/17 02:12 MPV 12.9 fl (7.0-11.0) H 07/03/17 02:12 Gran % 73.3 % (50.0-68.0) H 07/03/17 02:12 Lymph % (Auto) 16.9 % (22.0-35.0) L 07/03/17 02:12 [place] % (Auto) 7.8 % (1.0-6.0) H 07/03/17 02:12 Eos % (Auto) 1.6 % (1.5-5.0) 07/03/17 02:12 Baso % (Auto) 0.4 % (0.0-3.0) 07/03/17 02:12 Gran # 3.77 (1.4-6.5) 07/03/17 02:12 Lymph # (Auto) 0.9 (1.2-3.4) L 07/03/17 02:12 [place] # (Auto) 0.4 (0.1-0.6) 07/03/17 02:12 Eos # (Auto) 0.1 (0.0-0.7) 07/03/17 02:12 Baso # (Auto) 0.02 K/mm3 (0.0-2.0) 07/03/17 02:12 PT 19.2 SECONDS (9.4-12.5) H 07/03/17 02:12 INR 1.67 (0.93-1.08) H 07/03/17 02:12 APTT 33.4 Seconds (25.1-36.5) 07/03/17 02:12 Sodium 137 mmol/L (132-148) 07/03/17 10:30 Potassium 5.3 mmol/L (3.6-5.0) H 07/03/17 10:30 Chloride 96 mmol/L (98-107) L 07/03/17 10:30 Carbon Dioxide 27 mmol/L (21-33) 07/03/17 10:30 Anion Gap 20 (10-20) 07/03/17 10:30 BUN 51 mg/dL (7-21) H 07/03/17 10:30 Creatinine 8.4 mg/dl (0.8-1.5) H* 07/03/17 10:30 Est GFR ( Amer) 8 07/03/17 10:30 Est GFR (Non-Af Amer) 7 07/03/17 10:30 POC Glucose (mg/dL) 102 mg/dL (65-110) 07/03/17 14:44 Random Glucose 218 mg/dL (70-110) H 07/03/17 10:30 Calcium 8.7 mg/dL (8.4-10.5) 07/03/17 10:30 Phosphorus 6.5 mg/dL (2.5-4.5) H 07/03/17 02:12 Magnesium 2.6 mg/dL (1.7-2.2) H 07/03/17 02:12 Total Bilirubin 0.8 mg/dL (0.2-1.3) 07/03/17 10:30 AST 554 U/L (17-59) H D 07/03/17 10:30 ALT 232 U/L (7-56) H 07/03/17 10:30 Alkaline Phosphatase 50 U/L (38-126) 07/03/17 10:30 Lactate Dehydrogenase 1286 U/L (333-699) H 07/03/17 02:12 Total Creatine Kinase 354 U/L (35-230) H 07/03/17 02:12 CK-MB (CK-2) 6.3 ng/mL (0.0-3.6) H 07/03/17 02:12 CK-MB (CK-2) % 1.8 % (2.5-3.0) L 07/03/17 02:12 Troponin I 0.09 ng/mL 07/03/17 10:30 NT-Pro-B Natriuret Pep 63439 pg/mL (0-450) H 07/03/17 02:12 Total Protein 7.6 g/dL (5.8-8.3) 07/03/17 10:30 Albumin 3.9 g/dL (3.0-4.8) 07/03/17 10:30 Globulin 3.7 gm/dL 07/03/17 10:30 Albumin/Globulin Ratio 1.0 (1.1-1.8) L 07/03/17 10:30 - Constitutional Appears: Well, No Acute Distress - Head Exam Head Exam: ATRAUMATIC, NORMAL INSPECTION, NORMOCEPHALIC - Eye Exam Eye Exam: Normal appearance - ENT Exam ENT Exam: Normal External Ear Exam - Neck Exam Neck Exam: Normal Inspection - Respiratory Exam Respiratory Exam: NORMAL BREATHING PATTERN - Cardiovascular Exam Cardiovascular Exam: absent: JVD - GI/Abdominal Exam GI & Abdominal Exam: absent: Distended - Rectal Exam Rectal Exam: Deferred - Exam Additional comments: Deferred. - Extremities Exam Extremities Exam: Normal Inspection Additional comments: Full ROM of left shoulder. - Back Exam Back Exam: NORMAL INSPECTION - Neurological Exam Neurological Exam: Alert, Awake, Oriented x3 - Psychiatric Exam Psychiatric exam: Normal Affect, Normal Mood - Skin Skin Exam: Normal Color Assessment and Plan - Assessment and Plan (Free Text) Assessment: Left shoulder , arm pain- Muscular. ESRD. Anemia. CAD. CHF. Coronary stent placement COPD. Diabetic neuropathy. Transaminits. Hyperkalemia. Plan: Tylenol 975 mg PO x 1. Continue present management.
[2017-07-04] MEDS: Albuterol-Ipratrop 3 mg / 0.5 (3 ml) UD IH SCH ×4 (03:00→19:53)
--- NOTE | 2017-07-04 08:28 | CON ---
DATE: 07/03/2017 PULMONARY CONSULTATION REFERRING PHYSICIAN: Dr. Kessler. REASON FOR CONSULT: Cough, shortness of breath, multilobar infiltrate. HISTORY OF PRESENT ILLNESS: This is a 52-year-old gentleman well known to me from the office on previous admissions, multiple medical issues including chronic obstructive lung disease, obstructive sleep apnea syndrome, coronary artery disease, history of coronary stent, cardiac arrhythmia requiring pacemaker, renal failure, dialysis dependent, diabetes, hypertension, retinopathy, peripheral neuropathy, peripheral vascular disease, comes into ER because he could not breathe for last 2 days, having cough, shortness of breath, had a CAT scan of the chest done, which shows multilobar infiltrate; started on antibiotics, bronchodilators, feels a little better. No hemoptysis, no hematemesis, no hematuria or diarrhea reported. PAST MEDICAL HISTORY: As per history of present illness. ALLERGIES: TO NOVOLOG, ASPART INSULIN, DIVALPROEX, MOXIFLOXACIN, PENICILLIN. FAMILY HISTORY: Positive for diabetes, hypertension, and renal failure. MEDICATIONS: He is on Ambien 5 mg at bedtime p.r.n., Brilinta 90 mg twice a day, Colace 100 mg twice a day, Ecotrin 81 mg daily, insulin coverage, Lipitor 40 mg daily, metoprolol tartrate 25 mg twice a day, Lyrica 50 mg daily, meropenem 250 mg every 12 hours, gabapentin 300 mg daily, PhosLo with meals, Protonix 40 mg daily, Zithromax 500 mg daily and Advair HFA 1 puff twice a day. REVIEW OF SYSTEMS: No headache, no rhinitis. Has cough, shortness of breath, wheezing. No chest pain, no nausea, no vomiting, no diarrhea. No leg pain, or leg swelling. PHYSICAL EXAMINATION GENERAL: Sitting up in the bed, mild shortness of breath. VITAL SIGNS: Temp is 98, heart rate 61, respiratory rate is 20, blood pressure 128/60, pulse ox 100% on nasal cannula. HEENT: Moist mucous membranes. Crowded airway. Mallampati score is 4. NECK: Supple. No JVD. LUNGS: Have scattered rhonchi and a few wheezing. HEART: S1 and S2. ABDOMEN: Soft, nontender, no organomegaly. EXTREMITIES: No edema. NEUROLOGICAL: He wakes up, follows simple commands. LABORATORY DATA: Shows hemoglobin 9.8, hematocrit 31.2, WBC 5.1, platelets is 113, INR 1.67, PTT 33. Sodium 137, potassium 5.3, chloride 96, bicarbonate 27, BUN 51, creatinine 8.4, glucose 218, calcium 8.7, AST 554, ALT 232, alkaline phosphatase is 15, albumin is 3.9. Had a CAT scan of the chest done today, shows bilateral multilobar infiltrate, mostly segmental. IMPRESSION AND PLAN: Multilobar infiltrate, chronic obstructive lung disease, history of cardiac arrhythmia requiring pacemaker, obstructive sleep apnea syndrome, pulmonary hypertension, diabetes, retinopathy, neuropathy, renal failure, dialysis dependent. Case discussed with the family at bedside. All the questions answered. We will order procalcitonin in the morning, continue antibiotics for now, add inhaled bronchodilator, IV steroids. We will place on CPAP while sleeping, gastric prophylaxis, on antiplatelet, . We will follow with you. Jarred Escalera MD
[2017-07-04] MEDS: Insulin Reg-LOW-Coverage SC SCH ×4 (08:35→21:52)
--- NOTE | 2017-07-04 08:38 | CON ---
DATE: 07/03/2017 REASON FOR CONSULTATION: Shortness of breath, pulmonary edema, need for urgent dialysis, hyperkalemia. HISTORY OF PRESENT ILLNESS: This 52-year-old male, known to me from outpatient hemodialysis, multiple recent evaluations. Patient was discharged on Monday. He was admitted for chest pain, shortness of breath. He was found to be bradycardic. He was monitored in the ICU. He eventually had a pacemaker put in on Monday. He was monitored for two additional days. Was subsequently discharged in stable condition on Monday. Returned late last night/early this morning with complaints of shortness of breath, difficulty breathing, dyspnea on exertion, extreme discomfort. In the emergency room, his chest x-ray showed moderately enlarged cardiac silhouette, bilateral pleural effusions, possible mild pulmonary venous congestion. He was feeling hemodynamically stable at the time of presentation. His heart rate was 60, blood pressure was 137/61, respiratory rate was 20, temperature 98.7. His potassium was found to be 6.4. PAST MEDICAL AND SURGICAL HISTORY: NIDDM, hypertension, ESRD, CAD, PTCA and stent to the LAD, bradycardia, recent pacemaker placement, anemia of chronic kidney disease, peripheral vascular disease, secondary hyperparathyroidism. FAMILY HISTORY: Hypertension, diabetes, ESRD. SOCIAL HISTORY: No smoking, no alcohol use, no IV drug abuse. ALLERGIES: INSULIN, MOXIFLOXACIN, PENICILLIN. CURRENT MEDICATIONS: Gabapentin, Lyrica, Lopressor 25 b.i.d., Flomax, Starlix, , Lipitor, PhosLo. REVIEW OF SYSTEMS: All systems are reviewed, pertinent positives as mentioned in the history of presenting illness, rest unremarkable. PHYSICAL EXAMINATION: GENERAL: Middle-aged male, seen in the dialysis unit, in moderate respiratory distress. VITAL SIGNS: Blood pressure 130/64, heart rate 61, respiratory rate 21, temperature 98.7. HEENT: Normocephalic, atraumatic. NECK: Supple, no JVD. LUNGS: Bilateral equal air entry, bilateral equal expansion, basilar rales, no rhonchi. CARDIAC: S1 and S2. Regular rate and rhythm, no murmur, no rub. ABDOMEN: Obese, distended, soft, nontender, bowel sounds present. EXTREMITIES: No lower extremity edema. INTAKE AND OUTPUT: 3.5 kg to be removed on dialysis. LABORATORY DATA: WBC 5, hemoglobin 9.8, hematocrit 31, platelets 113. Sodium 137, potassium 5.3, chloride 96, CO2 of 27, BUN 51, creatinine 8.4, glucose 218, calcium 8.7. AST 554, ALT 232. CPK 354. Troponin 0.08. BNP 22,700. ASSESSMENT: 1. Acute pulmonary edema, volume overload. 2. Hyperkalemia. 3. Coronary artery disease, congestive heart failure, pulmonary hypertension. 4. End-stage renal disease. 5. Noninsulin-dependent diabetes mellitus. 6. Anemia of chronic kidney disease. 7. Secondary hyperparathyroidism. PLAN: 1. Urgent dialysis, ultrafiltrate about 3-1/2 kg. 2. Close monitoring post dialysis. 3. Follow up CT chest. 4. (?) Pericardial effusion. 5. Continue fingerstick monitoring and insulin coverage. 6. Continue phosphate binders. Eva Malcolm MD
--- NOTE | 2017-07-04 08:38 | CON ---
DATE: 07/03/2017 REASON FOR CONSULTATION: Cough, shortness of breath, cardiac evaluation, history of permanent pacemaker, history of recent stent. BRIEF CLINICAL HISTORY: This is a 52-year-old obese male with past medical history of end-stage renal disease, on dialysis secondary to diabetic end-stage renal disease; diabetic nephropathy; retinopathy; legally blind; neuropathy; history of coronary artery disease, status post multiple stent, last stent on 06/12/2017 and LAD twisted, FFR was found to be significant, so the patient went with stent. Later on, the patient had a bradycardic episode, junctional bradycardia, status post permanent pacemaker on 06/27/2017. Discharged on last Monday. States after he went home, he kept on coughing since there and then yesterday got worse and decided to come to the ER. Denies any chest pain. Denies any palpitation, but complained of shortness of breath on coughing. PAST MEDICAL HISTORY: Significant for coronary artery disease. He is status post stents and status post permanent pacemaker. RECENT CARDIAC WORKUP: As follows; patient had PTCA of the LAD done on 06/12/2017, two stents were done. Patient had last echo on 06/12/2017 that revealed ejection fraction 55%, moderate aortic regurgitation, mild valvular aortic stenosis, mild mitral regurgitation, moderate tricuspid regurgitation, RV systolic pressure 89, consistent with severe pulmonary hypertension. Mild by echo, but no aortic stenosis by catheterization. Patient underwent dual chamber pacemaker on 06/27/2017, which was MRI safe. Patient is also resistant to Plavix and to Brilinta. CURRENT MEDICATIONS: Patient is on Brilinta, Flomax, Revatio, baby aspirin and beta-valerie. REVIEW OF SYSTEMS: As per HPI. PHYSICAL EXAMINATION: VITAL SIGNS: Temperature afebrile, heart rate 62, blood pressure 120/60. HEENT: PERRLA. Extraocular muscles intact. NECK: Supple. No carotid bruit or thyromegaly. CHEST: Clear to auscultation. HEART: S1 and S2 regular. ABDOMEN: Soft. EXTREMITIES: Clubbing and cyanosis negative. LABORATORY DATA: Blood workup as follows; WBC , hemoglobin , hematocrit 31.2, platelet count 113. Chemistry shows sodium 130, potassium 5, chloride 95, carbon dioxide 27, anion gap 20, BUN , and creatinine 8.4. IMPRESSION: Cough, rule out multilobar pneumonia; diabetes; hypertension; hyperlipidemia; end-stage renal disease, on dialysis; diabetic retinopathy; diabetic nephropathy; status post multiple stents. Most recent intervention, patient had a pacemaker on 06/27/2017. Prior to that, patient had cardiac catheterization and stenting of the LAD was done on 06/12/2017. RECOMMENDATION: Resume medication aspirin, Plavix, low dose beta-valerie. We will do CAT scan of chest to rule out any pneumonia. Discussed with the patient. Patient is going for dialysis. Before the patient goes to the dialysis, we will do the CAT scan of the chest. We will follow with you. In the interim, we will resume ticagrelor, Brilinta, atorvastatin, aspirin and beta valerie. We will follow with you. We will start broad spectrum antibiotic. We will put [facility] and Dr. Escalera for consult. We will start Zithromax. We will put [facility] and Dr. Escalera for pulmonary consult. Thank you, Dr. Kessler, for providing us the opportunity in taking care of the patient, Jason Berger. Jarred Erickson MD
[2017-07-04] MEDS ORDERED: Acetylcysteine 20% Inhal Soln (4ml) INH SCH ×2 (10:00)
[2017-07-04] MEDS ORDERED: Azithromycin 500MG/NS 250ml 500 MG/250 ML BAG IVPB SCH (10:00)
[2017-07-04] MEDS: Pantoprazole 40 mg EC Tab PO SCH (10:52)
[2017-07-04] MEDS: Acetylcysteine 20% Inhal Soln (4ml) INH SCH ×2 (10:53→19:53)
[2017-07-04] MEDS: SALMETEROL XINAFOATE INH SCH ×2 (10:53→17:49)
[2017-07-04] MEDS: CALCIUM PHOSPHATE PO SCH ×3 (10:53→17:50)
[2017-07-04] MEDS: FLUTICASO INH SCH ×2 (10:53→17:49)
--- NOTE | 2017-07-04 16:15 | PN ---
DATE: REASON FOR CONSULTATION AND FOLLOWUP: Cough, shortness of breath, possible multilobar pneumonia, history of coronary artery disease, history of recent stent placement. SUBJECTIVE: The patient denies any chest pain, shortness of breath, or any palpitation, feels a lot better than yesterday after dialysis with antibiotic. OBJECTIVE: GENERAL: Not in any apparent distress. VITAL SIGNS: Temperature afebrile, heart rate 65, blood pressure 150/49. HEENT: PERRLA. Extraocular muscles intact. NECK: Supple. No carotid bruit. No thyromegaly. CHEST: Clear to auscultation. HEART: S1 and S2, regular. ABDOMEN: Soft. EXTREMITIES: Clubbing and cyanosis negative. LABORATORY DATA: Blood workup as follows: WBC 5.9, hemoglobin 9.8, hematocrit 31.2, platelet count 113. Chemistry shows sodium 137, potassium 5.3, chloride 103, carbon dioxide 20, anion gap of 15. BUN 8.4. IMPRESSION: Multilobar pneumonia; diabetes; hypertension; hyperlipidemia; diabetic neuropathy; end-stage renal disease, on dialysis; diabetic retinopathy and legally blind, status post multiple stents, recently on 06/12/2017 the patient had drug eluting stents in left anterior descending. History of recent pacemaker placement when the patient presented with junctional bradycardia, symptomatic with heart rate of 30 and multiple rapid response during dialysis because of the bradycardia, hypotension. RECOMMENDATIONS: Continue Zithromax. Follow up with Pulmonary and ID. Discussed with Dr. Forbes and discussed with the patient. For now, continue antibiotic as per ID. Yesterday, gave the Zithromax dose. We will discontinue telemetry. CVS status is stable. In the interim, continue aspirin, continue Brilinta. The patient is resistant to Plavix, so the patient is on Brilinta. PRU level was done twice on 06/19/2017, and 06/24/2017, and found to be 244 on 06/24/2017, and 241 on 06/19/2017, that is consistent with resistant to Plavix, so Plavix was discontinued, Brilinta started. The patient's pacemaker done, which is MRI safe, it means the patient can have MRI in future, both lead and pulse generator are MRI safe, so if needed, the patient can go for MRI. The patient also has pacemaker, so beta-valerie restarted because the patient had a pacemaker. In summary, continue aspirin, continue Brilinta at 90 mg twice, continue low-dose beta-valerie as blood pressure is tolerated. Continue atorvastatin, continue dialysis. Continue antibiotic with ID. Thank you, Dr. Kessler for providing us the opportunity in taking care of the patient, Jason Berger. Jarred Erickson MD
--- NOTE | 2017-07-04 16:18 | HP ---
CHIEF COMPLAINT: Shortness of breath, suffocation. HISTORY OF PRESENT ILLNESS: Mr. Jason Berger is a 52-year-old male came to the emergency room, has a history of end-stage renal disease, on hemodialysis, History of asthma, hypertension, coronary artery disease with cardiac stent placement, PPM/AICD placement, now came with generalized chest pain and difficulty of breathing. Otherwise, without any nausea, vomiting or diarrhea. No hematuria or hematochezia. No headache. No dizziness. No fever, no chills, but is feeling difficulty of breathing. No tingling sensation, no loss of function of 4 extremities. No history of travel. PAST MEDICAL HISTORY: Hypertension, congestive heart failure, COPD, TIA, left eye corneal transplant, diabetes mellitus, anemia, dermatological disorder, bilateral eczema, ataxia, cholecystectomy, diabetes mellitus and neuropathy, diabetic nephropathy, diabetic retinopathy, coronary stenting. FAMILY HISTORY: Father and mother, noncontributory. HABITS: Never smoker, no drugs, no ethanol. ALLERGIES: PATIENT IS ALLERGIC WITH INSULIN, MOXIFLOXACIN, HOME MEDICATIONS: Calcium, Dexilant, Neurontin, Voltaren, Starlix, Zyrtec, hydralazine, fenofibrate, Lyrica, Flomax. REVIEW OF SYSTEMS: Patient is seen and examined at the bedside, looking comfortable. I saw patient in the dialysis center, getting dialysis. Shortness of breath is better. Chest pain is better. No nausea, vomiting or diarrhea. No hematuria, no hematochezia. No swelling of the legs. No headache. No dizziness. PHYSICAL EXAMINATION: VITAL SIGNS: Temperature 98.7, pulse 64, respiratory rate 20, blood pressure 137/67, pulse oximetry 96. HEENT: Head normocephalic, atraumatic. Eyes PERRLA. Extraocular muscles intact. Conjunctivae clear. Nose patent. Mucous membrane moist. NECK: Supple. No carotid bruit. No JVD or thyromegaly. CHEST: Bilaterally symmetrical. HEART: S1 and S2 positive. LUNGS: Clear to auscultation. ABDOMEN: Soft. Bowel sounds positive. No organomegaly. EXTREMITIES: No edema. No cyanosis. NEUROLOGICAL: The patient is awake and alert. Moving all 4 extremities. No focal deficits. LABORATORY DATA: White blood cells 5.1, hemoglobin 9.8, hematocrit 31.2, platelets 113. Sodium 139, potassium 6.4, BUN noted , creatinine 9.4, glucose 199, chloride 95. ASSESSMENT AND PLAN: Mr. Jason Berger is a 52-year-old male with anemia, thrombocytopenia; renal insufficiency, having hemodialysis; hyperkalemia, hyperglycemia; insulin-dependent diabetes mellitus, not very well controlled; came with shortness of breath, uncontrolled diabetes mellitus, pulmonary edema, end-stage renal disease, chest pain, hyperkalemia. Gastrointestinal and deep venous thrombosis prophylaxis. Discussion done with child welfare social worker, rn field case manager and nurse practitioner. Repeat labs. We will follow up. Diana Kessler MD MTDD
--- NOTE | 2017-07-04 19:48 | PN ---
DATE: SUBJECTIVE: The patient is currently seen sitting up in bed. He appears to be in no acute distress. He states that his breathing is significantly improved. The patient remains on IV antibiotic therapy for bilateral pneumonia. The patient is scheduled for dialysis tomorrow. MEDICATIONS: Medication list reviewed. The patient is currently on acetylcysteine inhalation therapy, Ambien, Brilinta, calcium phosphate, Colace, DuoNeb, Ecotrin, insulin, Lipitor, Lopressor, Lyrica, meropenem, Neurontin, PhosLo, prednisone, Protonix, Advair HFA, and Zithromax. OBJECTIVE: INTAKE/OUTPUT: Intake 570, output hemodialysis. No urine output charted. VITAL SIGNS: Blood pressure is 147/62, temperature 97.9, respiratory rate is 17 with a pulse of 59. HEENT: Shows him to be normocephalic, atraumatic. Conjunctiva are pale. Sclerae are nonicteric. NECK: Supple. No neck vein distention. CHEST: Clear to auscultation and percussion. No audible rales, rhonchi or wheezing. CARDIOVASCULAR: Shows a permanent pacemaker. /AI/MR/TR. No ST. No S4. No rub. ABDOMEN: Soft. Bowel sounds normal. No rebound, guarding or masses. EXTREMITIES: Show a working AV fistula left upper extremity. Positive thrill. Positive bruit. No lower extremity cyanosis, clubbing or edema. NEURO: Shows him to be alert, oriented with no focal deficits. LABORATORY DATA AND IMAGING: Chest CT on admission showed multiple bilateral infiltrates. Microbiology: No cultures available for comment. CBC: White blood cell count 5.1, hemoglobin 9.8 with a platelet count of 113,000. Chemistries from yesterday showed a potassium of 5.3. BUN 51 with creatinine of 8.4. Sodium 137, chloride 96 with a CO2 of 27. Glucose is 218. Calcium was 8.7. Phosphorus level was 6.5. Magnesium level was 2.6. Mild elevation of liver enzymes. Albumin level was 3.9. ASSESSMENT: 1. Bilateral pneumonia. The patient remains on antibiotic therapy with both meropenem and Zithromax. The patient has been seen by Pulmonary and Infectious Disease. 2. End-stage renal disease. The patient will continue routine dialysis. He is on a Monday, Monday, Monday schedule. He will dialyze on a 2.0 K bath. I expect his potassium level to improve with dietary restriction and a low K bath being in the hospital. 3. History of atherosclerotic heart disease, status post percutaneous transluminal coronary angioplasty stents. 4. History of severe symptomatic bradycardia with near cardiac arrest, status post recent placement of a permanent pacemaker. 5. History of pulmonary hypertension. 6. History of aortic stenosis, aortic insufficiency, mitral regurgitation, and tricuspid regurgitation. 7. History of pulmonary hypertension. 8. History of anemia secondary to chronic kidney disease. The patient will continue Aranesp per protocol. 9. History of noninsulin-dependent diabetes mellitus. The patient will continue sliding scale insulin. 10. History of secondary hyperparathyroidism. Phosphorus level remains mildly elevated at 6.5. The patient remains on binder therapy, PhosLo 1334 mg three times a day with meals. PLAN: 1. Continue IV antibiotic therapy. 2. Continue followup with ID and Pulmonary. 3. Continue dialysis three times a week. 4. Continue inhalation therapy. 5. Taper steroids when able. 6. Continue statin therapy. 7. Close renal followup during hospitalization. Toy Martinez MD
[2017-07-04 20:21] VITALS: RESP 20
[2017-07-05] MEDS: Albuterol-Ipratrop 3 mg / 0.5 (3 ml) UD IH SCH ×3 (02:32→13:17)
--- NOTE | 2017-07-05 03:32 | PN ---
DATE: 07/04/2017 PULMONARY PROGRESS NOTE REFERRING PHYSICIAN: Diana Kessler MD SUBJECTIVE: He is sitting up in the bed. Night was unremarkable. Feels much better, but still has some cough and shortness of breath. No nausea. No vomiting, diarrhea, leg pain, or leg swelling. PHYSICAL EXAMINATION: GENERAL: In no acute distress. VITAL SIGNS: Temp is 98, heart rate 59, respiratory rate is 20, blood pressure 147/62, pulse ox 99% on room air. HEENT: Moist mucous membrane. Crowded airway. NECK: Supple. No JVD. LUNGS: Have a few scattered rhonchi and wheezing. HEART: S1 and S2. ABDOMEN: Soft and nontender. No organomegaly. EXTREMITIES: Trace edema. NEUROLOGIC: Awake and alert. Follows simple command. MEDICATIONS: He is on Mucomyst 20% 3 mL inhaled twice a day, Ambien 5 mg at bedtime p.r.n., Brilinta 90 mg twice a day, calcium phosphate 2 capsules 3 times a day, Colace 100 mg twice a day, DuoNeb every 6 hours, Ecotrin 81 mg daily, insulin coverage, Lipitor 40 mg daily, metoprolol tartrate 25 mg twice a day, Lyrica 50 mg daily, meropenem 250 mg every 12 hours, gabapentin 300 mg daily, prednisone 20 mg daily, Protonix 40 mg daily, Advair 230/21 one puff twice a day, Zithromax 500 mg daily. LABORATORY DATA: Showed blood sugar 312. IMPRESSION AND PLAN: Multilobar infiltrate, exacerbation of chronic obstructive lung disease, cardiac arrhythmia requiring pacemaker, obstructive sleep apnea syndrome, pulmonary hypertension, diabetes, retinopathy, renal failure, dialysis dependent. Pulmonary point of view, doing much better. We will decrease prednisone to 10 mg daily. Continue antibiotics. Encourage BiPAP use. Gastric prophylaxis. Deep vein thrombosis prophylaxis. Fall precaution. Thank you and we will follow with you. Jarred Escalera MD
--- NOTE | 2017-07-05 04:46 | PN ---
DATE: SUBJECTIVE: Patient was seen and examined at the bedside, looking comfortable. Does not look like in acute distress. No nausea, vomiting, diarrhea. No hematuria, no hematochezia. No swelling of legs. No chest pain, no palpitation. No headache, no dizziness. PHYSICAL EXAMINATION: VITAL SIGNS: Temperature 98.6, blood pressure 140/60, respiratory rate 18, pulse 59. HEENT: Head normocephalic, atraumatic. Eyes, PERRLA. Extraocular muscles intact. Conjunctivae clear. Nose patent. NECK: Supple. No carotid bruit. No JVD or thyromegaly. CHEST: Bilaterally symmetrical. HEART: S1 and S2 positive. LUNGS: Clear to auscultation. ABDOMEN: Soft. Bowel sounds positive. No organomegaly. EXTREMITIES: No edema. No cyanosis. Has working AV fistula on left upper extremity. Positive thrill. NEUROLOGICAL: The patient is awake and alert. Follows simple commands. LABORATORY DATA: White blood cells 5.1, hemoglobin 9.8, hematocrit 31.2, platelet 113. Sodium 137, potassium 5.3, BUN 51, creatinine 8.4, glucose 217. AST 554, ALT 232. ASSESSMENT AND PLAN: Mr. Jason Berger is a 52-year-old male with anemia, hyperkalemia, renal insufficiency on hemodialysis 3 times a week, abnormal liver function test, has bilateral pneumonia. The patient remains on antibiotic therapy with both meropenem and azithromycin. System Admin is on the case. End-stage renal disease, getting hemodialysis 3 times a week, history of atherosclerotic heart disease, status post percutaneous transluminal coronary angioplasty, stents, history of severe symptomatic bradycardia with near cardiac arrest, status post recent placement of permanent pacemaker, history of pulmonary hypertension, aortic stenosis, history of anemia secondary to chronic kidney disease. Patient is getting Aranesp per protocol, history of insulin-dependent diabetes mellitus, not controlled. Continue sliding scale. History of hyperparathyroidism. Phosphorus level remains mildly elevated. Continue IV antibiotics as per Infectious Disease and Pulmonary, dialysis 3 times a week, tapering doses of steroids. Seen by Dr. Martinez, Nephrology; Dr. Erickson, animal behaviourist; and Dr. Escalera, university extension specialist. Patient was seen by Dr. Estelle Fajardo and Neurontin was given. Gastrointestinal and deep vein thrombosis prophylaxis. We will follow up. Diana Kessler MD [facility] # [id number]
[2017-07-05] MEDS: Insulin Reg-LOW-Coverage SC SCH ×3 (07:58→17:10)
[2017-07-05] MEDS: Acetylcysteine 20% Inhal Soln (4ml) INH SCH (08:04)
[2017-07-05 08:18] VITALS: BP 120/52; PULSE 69; TEMP 97.4; O2SAT 98
--- NOTE | 2017-07-05 08:32 | CON ---
DATE: 07/04/2017 LOCATION: Patient was seen earlier this morning in room 374, bed 2. CHIEF COMPLAINT: Cough and mild shortness of breath times two days duration. HISTORY OF PRESENT ILLNESS: This is a 52-year-old male known to me from previous admission with obesity with BMI of 36; coronary artery disease; history of pancreatitis; chronic renal failure, on hemodialysis; nephropathy; retinopathy; kidney stones and asthma who had pulmonary symptoms and patient was admitted for antibiotics for pneumonia. REVIEW OF SYSTEMS: Reveals he did have low-grade fevers, but no chills. There is mild shortness of breath. No abdominal pain, diarrhea or constipation. No bright red blood per rectum. No melena. PAST MEDICAL HISTORY: Significant for obesity with BMI of 36; coronary artery disease; pancreatitis; chronic renal failure, on hemodialysis; nephropathy; retinopathy; kidney stones and asthma. PAST SURGICAL HISTORY: Significant for cholecystectomy, left corneal transplant, left arm fistula, and cardiac stents and pacemaker placement. MEDICATIONS: Reviewed. ALLERGIES: THE PATIENT IS ALLERGIC TO MOXIFLOXACIN AND PENICILLIN, HE GETS RASH AND ALSO, ALLERGIC TO INSULIN. PHYSICAL EXAMINATION VITAL SIGNS: Patient's temperature is 99, blood pressure is 151/50, respiratory rate 21, heart rate of 59. HEENT: Unremarkable. NECK: Supple. LUNGS: Have decreased breath sounds. HEART: Normal S1 and S2. ABDOMEN: Soft and nontender. No rebound. No guarding. No masses. LABORATORY EXAMINATION: Reveals a white count of 5.1, hemoglobin 9.8, platelets of 113. Coagulation is noted. Chemistries: BUN of 51, creatinine of 8.5. Procalcitonin is 2.29. LFTs are elevated. ASSESSMENT AND PLAN: This is a 52-year-old male with obesity with body mass index of 36; coronary artery disease; pancreatitis; chronic renal failure, on hemodialysis; nephropathy; retinopathy; kidney stones and asthma. The Patient said he had drug-eluting stents and also had pacemaker for accelerated junctional rhythm and ALLERGIC TO MOXIFLOXACIN, PENICILLIN, now presenting with pulmonary symptoms: 1. Bilateral health-care associated pneumonia, probable bacteria; elevated procalcitonin, history of renal failure, probable Gram positive versus Gram negative. Patient had ordered blood cultures and gotten vancomycin, meropenem and azithromycin and pending culture results and clinical response and we will follow closely with you. Jaspreet Forbes MD [facility] # [id number]
[2017-07-05 10:55] LABS: BASO # 0.03 K/mm3 (0.0-2.0); BASO % 0.6 % (0.0-3.0); EOS # 0.1 (0.0-0.7); EOS % 2.4 % (1.5-5.0); GRAN # 3.51 (1.4-6.5); GRAN % 65.3 % (50.0-68.0); HEMOGLOBIN 9.1 g/dL (14.0-18.0); LYMPH % 17.9 % (22.0-35.0); MEAN CELL VOLUME 93.6 fl (80.0-105.0); MEAN CORPUSCULAR HEMOGLOBIN 29.3 pg (25.0-35.0); MEAN CORPUSCULAR HGB CONC 31.3 g/dl (31.0-37.0); MEAN PLATELET VOLUME 13.6 fl (7.0-11.0); MONO # 0.7 (0.1-0.6); MONO % 13.8 % (1.0-6.0); RBC 3.11 10^6/uL (3.5-6.1); RED CELL DISTRIBUTION WIDTH 17.1 % (11.5-14.5); WHITE BLOOD COUNT 5.4 10^3/ul (4.5-11.0)
[2017-07-05] MEDS ORDERED: Darbepoetin Alfa 40 mcg/ml Inj IVP ONE (13:07)
[2017-07-05] MEDS: Pantoprazole 40 mg EC Tab PO SCH (14:44)
[2017-07-05] MEDS: CALCIUM PHOSPHATE PO SCH ×2 (14:46→17:12)
[2017-07-05] MEDS: SALMETEROL XINAFOATE INH SCH (14:48)
[2017-07-05] MEDS: FLUTICASO INH SCH (14:48)
--- NOTE | 2017-07-05 15:22 | RAD ---
HISTORY: Infiltrate COMPARISON: Comparison chest and CT scan chest both dated 07/03/2017 TECHNIQUE: Chest PA and lateral FINDINGS: LUNGS: Previously noted bilateral lower lobe and to a lesser degree left upper lobe atelectatic and or infiltrate changes less well seen on this study compared to high-resolution CT chest and may have improved somewhat. PLEURA: No significant pleural effusion identified. No pneumothorax apparent. CARDIOVASCULAR: Heart remains enlarged. No change bipolar pacemaker. OSSEOUS STRUCTURES: No significant abnormalities. VISUALIZED UPPER ABDOMEN: Normal. OTHER FINDINGS: None. IMPRESSION: Previously noted bilateral lower lobe and to a lesser degree left upper lobe atelectatic and or infiltrate changes less well seen on this study compared to high-resolution CT chest and may have improved somewhat.
--- NOTE | 2017-07-05 15:53 | PN ---
DATE: 07/05/2017 PULMONARY PROGRESS NOTE REFERRING PHYSICIAN: Diana Kessler MD. SUBJECTIVE: He is lying in the stretcher chair, getting dialysis. Night was unremarkable. Feels okay. Mild cough. No sputum production. No nausea, vomiting, diarrhea, leg pain, leg swelling. OBJECTIVE: GENERAL: In no acute distress. VITAL SIGNS: Temp is 98, heart rate is 69, respiratory rate is 20, blood pressure 120/52, pulse ox 98% on nasal cannula. HEENT: Moist mucous membrane. Crowded airway. Mallampati score is 4. NECK: Supple. No JVD. LUNGS: Have a few crackles. Scattered rhonchi and wheezing. HEART: S1 and S2. ABDOMEN: Soft, nontender. No organomegaly. EXTREMITIES: Trace edema. NEUROLOGICALLY: Awake, alert, follows simple command. MEDICATIONS: He is on Mucomyst 20% inhaled twice a day, Ambien 5 mg at bedtime p.r.n., Brilinta 90 mg twice a day, Colace 100 mg twice a day, DuoNeb every 6 hours, Ecotrin 81 mg daily, insulin coverage, Lipitor 40 mg daily, metoprolol tartrate 25 mg twice a day, Lyrica 50 mg daily, meropenem 250 mg every 12 hours, Neurontin 300 mg daily, prednisone 10 mg daily, Protonix 40 mg daily, Advair 1 puff twice a day, Zithromax 500 mg daily. LABORATORY DATA: Showed hemoglobin 9.1, hematocrit 29.1, WBC 5.4, platelet is 119. Sodium 136, potassium 4.9, chloride 92, bicarbonate 28, BUN is 70, creatinine 10.2, glucose 331, calcium is 9, magnesium is 2.5, AST 310, ALT 246, alk phos is 56, albumin is 4. IMPRESSION AND PLAN: Multilobe infiltrate, exacerbation of chronic obstructive lung disease, cardiac arrhythmia requiring pacemaker, obstructive sleep apnea syndrome, pulmonary hypertension, diabetes, renal failure, dialysis dependent. Pulmonary point of view, he is doing okay. We will get chest x-ray to assure the stability of infiltrate. Encourage continuous positive airway pressure use at nighttime. P.o. and inhaled bronchodilator. Antibiotics as per Infectious Diseases. Fall precaution. Thank you and we will follow with you. Jarred Escalera MD [facility] # [id number]
--- NOTE | 2017-07-05 15:59 | PN ---
DATE: 07/05/2017 REASON FOR THE CONSULTATION AND FOLLOWUP: Cough, shortness of breath, possible multilobar pneumonia, history of coronary artery disease, history of recent stent placement, history of recent permanent pacemaker. SUBJECTIVE: The patient denies any chest pain, denies any , but complained of cough. OBJECTIVE: GENERAL: Not in apparent distress, lying flat on the bed. VITAL SIGNS: Temperature afebrile, heart rate 69, blood pressure 120/52. HEENT: PERRLA. Extraocular muscles intact. NECK: Supple. No carotid bruit or thyromegaly. CHEST: Clear to auscultation. HEART: S1 and S2, regular. ABDOMEN: Soft. EXTREMITIES: Clubbing and cyanosis negative. LABORATORY DATA: Blood workup as follows: WBC , hemoglobin , hematocrit 31.2, platelet count 113. Chemistry shows on 07/03/2017, sodium 137, potassium 5.3, chloride 96, carbon dioxide 23, anion gap of 20, BUN 51, creatinine 8.4. IMPRESSION: Multilobar pneumonia; shortness of breath; probably secondary to pneumonia; obesity; diabetes; hypertension; hyperlipidemia; sick sinus syndrome; junctional bradycardia; status post multiple rapid response in the previous admission; status post permanent pacemaker, duel chamber, MRI safe pacemaker on 06/28/2015; history of recently placed stent in left anterior descending. The patient is resistant to Plavix, not adequately platelet aggregation with Plavix, switch over to Brilinta. RECOMMENDATION: Continue Brilinta, continue beta-valerie as the outpatient pacemaker, to give the beta-valerie. Continue atorvastatin, continue aspirin, continue antibiotics as per ID. Follow up with Pulmonary and ID. The patient clear from Cardiology point of view. When he is stable medically and can be discharged home. No further cardiac workup is planned or warranted. Once the patient is medically stable, okay to be discharged from cardiology point of view. I discussed with the patient in length and discontinue Telemetry. Thank you Dr. Kessler, for providing us the opportunity in taking care of the patient, Jason Miramontes. Jarred Erickson MD
--- NOTE | 2017-07-05 18:41 | PN ---
DATE: 07/05/2017 SUBJECTIVE: The patient is seen in the dialysis unit. He is awake. He is alert. He is comfortable. He still has some cough. His shortness of breath is much better. He denies any chest pain at present. PHYSICAL EXAMINATION: GENERAL: Obese middle-aged male. VITAL SIGNS: Blood pressure 120/52, heart rate 69, respiratory rate 20, temperature 97.4. HEENT: Normocephalic, atraumatic. NECK: Supple, no JVD. LUNGS: Bilateral equal air entry, bilateral equal expansion, bilateral rhonchi, no rales. CARDIAC: S1 and S2, regular rate and rhythm, no murmur, no rub. ABDOMEN: Obese, distended, soft, nontender, bowel sounds present. EXTREMITIES: No lower extremity edema, chronic stasis changes. INTAKE AND OUTPUT: Not charted. LABORATORY DATA: WBC 5.4, hemoglobin 9, hematocrit 29, platelets 119. Sodium 136, potassium 4.9, chloride 92, CO2 28, BUN 70, creatinine 10.2, glucose 331, calcium 9, phosphorus 5.7, magnesium 2.5, AST 310, ALT 246. Chest x-ray, bilateral lower lobe infiltrate/atelectic changes less seen as compared to the CT. CURRENT MEDICATIONS: Mucomyst, Ambien, Brilinta, Colace, DuoNeb, Ecotrin, insulin, Lipitor, Lopressor 25 b.i.d., Lyrica, meropenem 250 every 12 hours, Neurontin, PhosLo, prednisone, Protonix, Zithromax. ASSESSMENT: 1. Multilobar infiltrate (?) congestive heart failure versus pneumonia. 2. Chronic obstructive pulmonary disease exacerbation. 3. Coronary artery disease, percutaneous transluminal coronary angioplasty and stent, pulmonary hypertension. 4. End-stage renal disease. 5. Cos-mnbsoyt-[id number] diabetes mellitus. 6. Anemia. 7. Secondary hyperparathyroidism. PLAN: 1. Continue antibiotics as per ID recommendations. 2. Dietary counseling regarding fluid restricted renal diet. 3. Continue respiratory treatments. 4. Agree with positive airway pressure breathing at night. Eva Malcolm MD
--- NOTE | 2017-07-06 03:30 | PN ---
DATE: 07/05/2017 SUBJECTIVE: The patient is in bed, was seen early this morning in room 366, bed 2. He is comfortable. No fevers and no chills. PHYSICAL EXAMINATION: VITAL SIGNS: Temperature is 97, blood pressure is 120/50, respiratory rate of 18. HEENT: Unremarkable. NECK: Supple. LUNGS: Have decreased breath sounds. HEART: Normal S1 and S2. ABDOMEN: Soft. LABORATORY DATA: Revealed a white count of 5.4, hemoglobin of 9, platelets of 119. Chemistry reveals a BUN of 70, creatinine of 10. Microbiology is noted. ASSESSMENT AND PLAN: This is a 52-year-old male known to me from previous admissions with obesity, BMI of 36, coronary artery disease; pancreatitis; chronic renal failure - on hemodialysis; nephropathy; retinopathy; kidney stones in the past, now has a drug-eluting stent and also a pacemaker for accelerated junctional rhythm, ALLERGIC TO MOXIFLOXACIN AND PENICILLIN, presenting with bilateral health-care associated pneumonia, probable bacteria with elevated procalcitonin, history of renal failure Gram-positive versus Gram-negative, on intermittent vancomycin, meropenem and azithromycin day #2. We will follow with you. He will complete 4 to 7 days of antibiotics. Jaspreet Forbes MD
--- NOTE | 2017-07-06 11:10 | CON ---
DATE:07/05/2017 This patient was seen and evaluated earlier today. REASON FOR CONSULTATION: Abdominal pain, abnormal LFTs. HISTORY OF PRESENT ILLNESS: This is a 56-year-old patient with a past medical history of end-stage renal disease, on hemodialysis, asthma, hypertension, coronary artery disease, status post PCI, AICD placement, initially admitted with chest pain and difficulty in breathing. Patient was found to have elevated LFT. GI consult was requested to evaluate this. PAST MEDICAL HISTORY: Other past medical history is significant for congestive heart failure, COPD, TIA, left corneal transplant, diabetes mellitus, diabetic retinopathy. Patient denies any abdominal pain. Other past medical history significant for status post cholecystectomy; end-stage renal disease, on hemodialysis; PCI, coronary artery stent placement. FAMILY HISTORY: Noncontributory. SOCIAL HISTORY: Denies smoking or alcohol. ALLERGIES: ALLERGIC TO INSULIN,Novolog,Avelox,PCN. REVIEW OF SYSTEMS: Positive as above. Other systems reviewed. PHYSICAL EXAMINATION: GENERAL: Patient is lying on the bed, not in acute distress. VITAL SIGNS: Afebrile, blood pressure 137/67. HEENT: Atraumatic, anicteric. NECK: Supple. HEART: S1 and S2 heard. LUNGS: Bilateral air entry present. ABDOMEN: Soft. There is no mass palpable. No tenderness. EXTREMITIES: No edema. No cyanosis. LABORATORY DATA: Hemoglobin 9.1, hematocrit 29.1, WBC 5.4, platelets 111. Patient's transaminase is only elevated. AST is now 310, ALT is 246, total bilirubin is normal. Alkaline phosphatase is also normal. IMPRESSION: Abnormal liver function test, transaminases are mainly elevated. This could be due to hepatic congestion and drug-induced also to be considered. Other comorbidities include dyslipidemia. Patient is presently on Zithromax, patient is on aspirin. So, most likely cause to be ruled out is drug-induced. Patient is status post cholecystectomy. Patient had automatic implantable cardioverter defibrillator placement, MRI cannot be done. n. RECOMMENDATIONS: 1. Followup of LFT 2. Ultra sound of abdomen to evaluate CBD 3. We will discuss with Cardiology regarding the medications. Thank you very much for allowing us to participate in the care of the patient. Jacquelin Ahn MD [facility] # [id number]
== END 2017-07-05 18:24 | DRG 291 ==
LOC: ED 01:18 → ERH 03:30 → 3RSO 04:29 → OBSVTOIN 07-04 13:44 → 3RNO 07-04 15:53
PROVIDERS: ADMIT Internal Medicine; ATTEND Internal Medicine
PROC: 3E0F7GC Introduction of Other Therapeutic Substance into Respiratory Tract, Via Natural or Artificial Opening (ICD-10-PCS; 2017-07-04)
PROC: 5A1D70Z Performance of Urinary Filtration, Intermittent, Less than 6 Hours Per Day (ICD-10-PCS; principal; 2017-07-05)
DX: I13.2 Hypertensive heart and chronic kidney disease with heart failure and with stage 5 chronic kidney disease, or end stage renal disease (principal); N18.6 End stage renal disease; J18.9 Pneumonia, unspecified organism; N25.81 Secondary hyperparathyroidism of renal origin; J44.0 Chronic obstructive pulmonary disease with (acute) lower respiratory infection; J44.1 Chronic obstructive pulmonary disease with (acute) exacerbation; I50.9 Heart failure, unspecified; E87.5 Hyperkalemia; D63.1 Anemia in chronic kidney disease; D69.6 Thrombocytopenia, unspecified; E11.42 Type 2 diabetes mellitus with diabetic polyneuropathy; E11.51 Type 2 diabetes mellitus with diabetic peripheral angiopathy without gangrene; E11.319 Type 2 diabetes mellitus with unspecified diabetic retinopathy without macular edema; E11.22 Type 2 diabetes mellitus with diabetic chronic kidney disease; Z99.2 Dependence on renal dialysis; E11.21 Type 2 diabetes mellitus with diabetic nephropathy; I25.10 Atherosclerotic heart disease of native coronary artery without angina pectoris; G47.33 Obstructive sleep apnea (adult) (pediatric); I27.20 Pulmonary hypertension, unspecified; R00.1 Bradycardia, unspecified; E11.65 Type 2 diabetes mellitus with hyperglycemia; H54.8 Legal blindness, as defined in USA; I08.3 Combined rheumatic disorders of mitral, aortic and tricuspid valves; E78.5 Hyperlipidemia, unspecified; Y95 Nosocomial condition; E66.9 Obesity, unspecified; Z68.36 Body mass index [BMI] 36.0-36.9, adult; Z94.7 Corneal transplant status; Z86.73 Personal history of transient ischemic attack (TIA), and cerebral infarction without residual deficits; Z79.4 Long term (current) use of insulin; Z87.442 Personal history of urinary calculi; Z95.5 Presence of coronary angioplasty implant and graft; Z95.810 Presence of automatic (implantable) cardiac defibrillator; Z90.49 Acquired absence of other specified parts of digestive tract; Z88.0 Allergy status to penicillin

== ENCOUNTER 2017-07-05 17:43 | Inpatient (IN) | payer OTHER ==
[2017-07-05 21:33] VITALS: BMI 35.7
[2017-07-05] MEDS ORDERED: Pneumococcal 23-Valent Vaccine IM ONE (21:33)
[2017-07-06] MEDS: Albuterol-Ipratrop 3 mg / 0.5 (3 ml) UD IH SCH ×4 (02:38→20:15)
[2017-07-06] MEDS: Pantoprazole 40 mg EC Tab PO SCH (06:26)
[2017-07-06] MEDS: Insulin Reg-LOW-Coverage SC SCH ×4 (06:36→21:59)
[2017-07-06 07:13] LABS: HEMOGLOBIN 9.5 g/dL (14.0-18.0); MEAN CELL VOLUME 95.3 fl (80.0-105.0); MEAN CORPUSCULAR HEMOGLOBIN 29.6 pg (25.0-35.0); MEAN PLATELET VOLUME 12.5 fl (7.0-11.0); RBC 3.21 10^6/uL (3.5-6.1); RED CELL DISTRIBUTION WIDTH 17.2 % (11.5-14.5); WHITE BLOOD COUNT 5.9 10^3/ul (4.5-11.0)
[2017-07-06] MEDS: Acetylcysteine 20% Inhal Soln (4ml) INH SCH ×3 (07:27→20:15)
--- NOTE | 2017-07-06 12:05 | CP.PCM.CON ---
History of Present Illness - History of Present Illness History of Present Illness: Seen and examined by me and Dr. Erickson Reason for consult: Continuity of care in TCU, extensive medical history that includes, hypetension, CAD with stents, SSS with AICD/PPM, COPD, ESRD with hemodialysis. Subjective: " I was readmitted due to shortness of breath however breathing is better now" denies chest pain, denies shortness of breath HISTORY OF PRESENT ILLNESS: This is a 52 year old male who was readmitted to [facility] due to shortness of breath and transferred to TCU for deconditioning. Patient has extensive medical history. history of ESRD on hemodialysis MWF, left AV fistula, hypertension, DM 2, CAD with stents, left cornea transplant,cholecystectomy, TIA and asthma. 06/12/17 had NSTEMI and hypotension and admitted to ICU. and was discharged 06/14/17. Readmitted on 06/16 for bradycardia and chest pain subsequently discharged home. 06/23/17 readmitted again for chest pain and shortness of breath after missing dialysis treatment. Had episode of hypotension andRRT was called and patient was transferred to ICU. for bradycardia. 06/27 right chest AICD/PPM inserted. and was discharged 06/30/17. However, readmitted again 07/03/17 due to shortness of breath. Patient has history of asthma. Dr. Escalera was consulted for pulmonary and adjusted medications and now in TCU for deconditioning. Review of Systems - Cardiovascular Cardiovascular: As Per HPI Additional comments: denies chest pain and shortness of breath - Respiratory Respiratory: As Per HPI Additional comments: dry chronic cough especially in the morning - Gastrointestinal Additional comments: denies nausea,denies vomiting - Genitourinary Additional comments: ESRD on hemodialysis MWF Left AV fistula positive bruit. - Neurological Additional comments: Awake.alert oriented - Psychiatric Additional comments: diabetes mellitus Past Patient History - Infectious Disease Hx of Infectious Diseases: None - Tetanus Immunizations Tetanus Immunization: Up to Date - Past Medical History & Family History Past Medical History?: Yes - Past Social History Smoking Status: Never Smoked - CARDIAC Hx Congestive Heart Failure: Yes Hx Hypertension: Yes Hx Pacemaker: Yes - PULMONARY Hx Chronic Obstructive Pulmonary Disease (COPD): Yes - NEUROLOGICAL Hx Transient Ischemic Attacks (TIA): Yes - HEENT Hx HEENT Problems: Yes (BILATERAL EYE WITH BLURRY VISION) Hx Cataracts: Yes (HAD SX 05/29/12) Other/Comment: left eye cornea transplant,RENAL RETINOPATHY, glasses - RENAL Other/Comment: m/w/f [facility] - ENDOCRINE/METABOLIC Hx Diabetes Mellitus Type 1: Yes - HEMATOLOGICAL/ONCOLOGICAL Hx Anemia: Yes (With transfusions) - INTEGUMENTARY Hx Dermatological Problems: Yes (BILATERAL EDEMA TO UPPER AND LE,SKIN DRYNESS) - MUSCULOSKELETAL/RHEUMATOLOGICAL Hx Falls: No - GASTROINTESTINAL Hx Gastrointestinal Disorders: No - GENITOURINARY/GYNECOLOGICAL Hx Genitourinary Disorders: Yes (esrd on HD MWF) Hx Reproductive Disorders: Yes (bph) - PSYCHIATRIC Hx Substance Use: No - SURGICAL HISTORY Hx Cholecystectomy: Yes (08/15/12) Hx Coronary Stent: Yes (x2 monday06/13/17) Other/Comment: FISTULA - ANESTHESIA Hx Anesthesia: Yes Hx Anesthesia Reactions: No Hx Malignant Hyperthermia: No Meds Allergies/Adverse Reactions: Allergies Allergy/AdvReac Type Severity Reaction Status Date / Time insulin aspart [From Novolog] Allergy Intermediate ITCHING Verified 07/05/17 21: 14 moxifloxacin Allergy Intermediate ITCHING Verified 07/05/17 21:14 Penicillins Allergy Intermediate ITCHING Verified 07/05/17 21:14 - Medications Medications: Current Medications Acetaminophen (Tylenol 325mg Tab) 650 mg PO Q6H PRN PRN Reason: Pain, Mild (1-3) Last Admin: 07/06/17 08:27 Dose: 650 mg Acetylcysteine (Acetylcysteine 20%) 3 ml INH BIDRESP [facility] Last Admin: 07/06/17 07:27 Dose: 3 ml Albuterol/Ipratropium (Duoneb 3 Mg/0.5 Mg (3 Ml) Ud) 3 ml IH [id number] [facility] Last Admin: 07/06/17 07:28 Dose: 3 ml Aspirin (Ecotrin) 81 mg PO 0800 [facility] Last Admin: 07/06/17 08:22 Dose: 81 mg Atorvastatin Calcium (Lipitor) 40 mg PO DIN [facility] Azithromycin (Zithromax) 500 mg PO DAILY [facility] PRN Reason: Protocol Last Admin: 07/06/17 10:09 Dose: 500 mg Calcium Acetate (Phoslo) 1,334 mg PO WM [facility] Last Admin: 07/06/17 11:39 Dose: 1,334 mg Docusate Sodium (Colace) 100 mg PO BID [facility] Last Admin: 07/06/17 09:57 Dose: Not Given Gabapentin (Neurontin) 300 mg PO DAILY [facility] PRN Reason: Protocol Last Admin: 07/06/17 10:09 Dose: 300 mg Insulin Detemir (Levemir) 10 unit SC ACBD [facility] Insulin Human Regular (Humulin R Low) 0 units SC ACHS [facility] PRN Reason: Protocol Last Admin: 07/06/17 11:37 Dose: 7 units Metoprolol Tartrate (Lopressor) 25 mg PO 0800,1800 [facility] Last Admin: 07/06/17 08:22 Dose: 25 mg Pantoprazole Sodium (Protonix Ec Tab) 40 mg PO 0600 [facility] Last Admin: 07/06/17 06:26 Dose: 40 mg Prednisone (Prednisone Tab) 10 mg PO DAILY [facility] Last Admin: 07/06/17 10:08 Dose: 10 mg Pregabalin (Lyrica) 50 mg PO BID [facility] Last Admin: 07/06/17 09:57 Dose: Not Given Ticagrelor (Brilinta) 90 mg PO BID [facility] Last Admin: 07/06/17 10:07 Dose: 90 mg Zolpidem Tartrate (Ambien) 5 mg PO HS PRN; Protocol PRN Reason: Insomnia Last Admin: 07/05/17 23:35 Dose: 5 mg Physical Exam - Constitutional Appears: No Acute Distress - Eye Exam Eye Exam: Normal appearance Pupil Exam: NORMAL ACCOMODATION - ENT Exam ENT Exam: Mucous Membranes Moist, Normal Exam - Respiratory Exam Respiratory Exam: Clear to Auscultation Bilateral, NORMAL BREATHING PATTERN - Cardiovascular Exam Cardiovascular Exam: REGULAR RHYTHM, +S1, +S2 - GI/Abdominal Exam GI & Abdominal Exam: Normal Bowel Sounds, Soft - Extremities Exam Additional comments: left AV fistula positive bruit - Neurological Exam Neurological exam: Alert, Normal Gait, Oriented x3 - Psychiatric Exam Psychiatric exam: Normal Affect, Normal Mood - Skin Skin Exam: Dry, Intact, Normal Color Results - Vital Signs Recent Vital Signs: Last Vital Signs Temp 98.3 F 07/05/17 21:16 Pulse 79 07/06/17 08:22 Resp 18 07/05/17 21:16 BP 162/61 H 07/06/17 08:22 Pulse Ox - Labs Result Diagrams: 07/06/17 06:00 Labs: Laboratory Results - last 24 hr 07/06/17 07/06/17 07/06/17 01:44 04:59 06:00 WBC 5.9 RBC 3.21 L Hgb 9.5 L Hct 30.6 L MCV 95.3 MCH 29.6 MCHC 31.0 RDW 17.2 H Plt Count 140 MPV 12.5 H POC Glucose (mg/dL) 476 H* 450 H* 07/06/17 11:20 WBC RBC Hgb Hct MCV MCH MCHC RDW Plt Count MPV POC Glucose (mg/dL) 470 H* Assessment & Plan - Assessment and Plan (Free Text) Assessment: Previous cardiac work up: EKG 07/03 V-pacing at 60/min with good capture 06/27 EP study sick sinus syndrome- AICD/PPM inserted 06/12/17 ECHO-LVEF 55%,moderate vaortic regurgitation,mild mitral regurgitation, moderate tricuspid regurgitation, severe pulmonary hypertension (Full report in chart) IMPRESSION: Continuity of care in TCU. A 52 year old male who was readmitted to [facility] due to shortness of breath and transferred to TCU Patient has extensive medical history. history of ESRD on hemodialysis MWF, left AV fistula , hypertension, COPD, DM 2, CAD with stents, left cornea transplant, cholecystectomy, TIA and asthma. 06/12/17 had NSTEMI and hypotension and admitted to ICU. and was discharged 06/14/17. Readmitted on 06/16 for bradycardia and chest pain subsequently discharged home. 06/23/17 readmitted again for chest pain and shortness of breath after missing dialysis treatment. Had episode of hypotension andRRT was called and patient was transferred to ICU. for bradycardia. 06/27 right chest AICD/PPM inserted. and was discharged 06/30/17. However, readmitted again 07/03/17 due to shortness of breath. Patient has history of asthma. Dr. Escalera was consulted for pulmonary and adjusted medications and now in TCU for deconditioning. Plan: Continuity of care in TCU In TCU for physical therapy and deconditioning Stable cardiac standpoint With AICD/PPM Stable blood pressure Denies shortness of breath and chest pain Ambulating without problems Continue physical therapy Continue current medications Continue current treatment Will follow up Plan and treatment discussed with Dr. Erickson Thank you Dr. Kessler for referring and giving us the opportunity to participate in the care of Jason Miramontes. - Date & Time Date: 07/06/17 Time: 07:50
[2017-07-06] MEDS: Insulin Detemir 100 units/ml Vial (Levemir) SC SCH (17:44)
[2017-07-06 19:10] LABS: CALCIUM 8.9 mg/dL (8.4-10.5)
[2017-07-07] MEDS: Albuterol-Ipratrop 3 mg / 0.5 (3 ml) UD IH SCH ×4 (01:52→21:45)
[2017-07-07] MEDS: Pantoprazole 40 mg EC Tab PO SCH (05:41)
--- NOTE | 2017-07-07 06:01 | CP.PCM.PN ---
Subjective - Subjective Subjective: Seen and examined by me and Dr. Erickson Reason for consult: Continuity of care in TCU, extensive medical history that includes, hypetension, CAD with stents, SSS with AICD/PPM, COPD, ESRD with hemodialysis. Subjective: " I was readmitted due to shortness of breath however breathing is better now" denies chest pain, denies shortness of breath Objective - Vital Signs/Intake and Output Vital Signs (last 24 hours): Temp Pulse Resp BP Pulse Ox 98.4 F 60 18 135/54 L 100 07/06/17 17:01 07/06/17 17:47 07/06/17 17:01 07/06/17 17:47 07/06/17 17:01 - Medications Medications: Current Medications Acetaminophen (Tylenol 325mg Tab) 650 mg PO Q6H PRN PRN Reason: Pain, Mild (1-3) Last Admin: 07/06/17 18:45 Dose: 650 mg Acetylcysteine (Acetylcysteine 20%) 3 ml INH BIDRESP [facility] Last Admin: 07/06/17 20:15 Dose: 3 ml Albuterol/Ipratropium (Duoneb 3 Mg/0.5 Mg (3 Ml) Ud) 3 ml IH [id number] [facility] Last Admin: 07/07/17 01:52 Dose: 3 ml Aspirin (Ecotrin) 81 mg PO 0800 [facility] Last Admin: 07/06/17 08:22 Dose: 81 mg Atorvastatin Calcium (Lipitor) 40 mg PO DIN [facility] Last Admin: 07/06/17 17:45 Dose: 40 mg Azithromycin (Zithromax) 500 mg PO DAILY [facility] PRN Reason: Protocol Last Admin: 07/06/17 10:09 Dose: 500 mg Calcium Acetate (Phoslo) 1,334 mg PO WM [facility] Last Admin: 07/06/17 17:46 Dose: 1,334 mg Docusate Sodium (Colace) 100 mg PO BID [facility] Last Admin: 07/06/17 17:46 Dose: Not Given Gabapentin (Neurontin) 300 mg PO DAILY [facility] PRN Reason: Protocol Last Admin: 07/06/17 10:09 Dose: 300 mg Meropenem 250 mg/ Sodium (Chloride) 100 mls @ 100 mls/hr IVPB Q12H [facility] PRN Reason: Protocol Stop: 07/13/17 21:31 Last Admin: 07/06/17 23:31 Dose: 100 mls/hr Insulin Detemir (Levemir) 10 unit SC ACBD [facility] Last Admin: 07/06/17 17:44 Dose: 10 unit Insulin Human Regular (Humulin R Low) 0 units SC ACHS [facility] PRN Reason: Protocol Last Admin: 07/06/17 21:59 Dose: 3 units Metoprolol Tartrate (Lopressor) 25 mg PO 0800,1800 [facility] Last Admin: 07/06/17 17:47 Dose: 25 mg Pantoprazole Sodium (Protonix Ec Tab) 40 mg PO 0600 [facility] Last Admin: 07/07/17 05:41 Dose: Not Given Prednisone (Prednisone Tab) 10 mg PO DAILY [facility] Last Admin: 07/06/17 10:08 Dose: 10 mg Pregabalin (Lyrica) 50 mg PO BID [facility] Last Admin: 07/06/17 18:40 Dose: 50 mg Ticagrelor (Brilinta) 90 mg PO BID [facility] Last Admin: 07/06/17 17:46 Dose: 90 mg Zolpidem Tartrate (Ambien) 5 mg PO HS PRN; Protocol PRN Reason: Insomnia Last Admin: 07/06/17 21:54 Dose: 5 mg - Labs Labs: 07/06/17 06:00 07/06/17 18:35 Assessment and Plan - Assessment and Plan (Free Text) Assessment: IMPRESSION: Continuity of care in TCU. A 52 year old male who was readmitted to [facility] due to shortness of breath and transferred to TCU Patient has extensive medical history. history of ESRD on hemodialysis MWF, left AV fistula , hypertension, COPD, DM 2, CAD with stents, left cornea transplant, cholecystectomy, TIA and asthma, NSTEMI, SSS requiring AICD/PPM. Plan: In TCU for physical therapy and deconditioning Stable cardiac standpoint With AICD/PPM Stable blood pressure Denies shortness of breath and chest pain Ambulating without problems Continue physical therapy Continue current medications Continue current treatment Will follow up Plan and treatment discussed with Dr. Erickson
[2017-07-07] MEDS: Insulin Detemir 100 units/ml Vial (Levemir) SC SCH ×2 (06:34→17:35)
[2017-07-07] MEDS: Insulin Reg-LOW-Coverage SC SCH ×4 (06:34→22:15)
[2017-07-07 06:49] LABS: BASO # 0.05 K/mm3 (0.0-2.0); BASO % 0.8 % (0.0-3.0); EOS # 0.3 (0.0-0.7); EOS % 4.4 % (1.5-5.0); GRAN # 3.61 (1.4-6.5); HEMOGLOBIN 8.9 g/dL (14.0-18.0); LYMPH # 1.2 (1.2-3.4); LYMPH % 19.9 % (22.0-35.0); MEAN CELL VOLUME 93.3 fl (80.0-105.0); MEAN CORPUSCULAR HEMOGLOBIN 29.9 pg (25.0-35.0); MEAN PLATELET VOLUME 12.4 fl (7.0-11.0); MONO # 0.8 (0.1-0.6); MONO % 13.9 % (1.0-6.0); RBC 2.98 10^6/uL (3.5-6.1); RED CELL DISTRIBUTION WIDTH 17.3 % (11.5-14.5); WHITE BLOOD COUNT 5.9 10^3/ul (4.5-11.0)
[2017-07-07 07:12] LABS: ALBUMIN 3.9 g/dL (3.0-4.8); CALCIUM 8.7 mg/dL (8.4-10.5)
[2017-07-07] MEDS: Acetylcysteine 20% Inhal Soln (4ml) INH SCH ×2 (07:17→21:40)
--- NOTE | 2017-07-07 08:56 | CON ---
DATE: 07/06/2017 LOCATION: Patient was seen in [facility] early this morning. CHIEF COMPLAINT: Weakness and cough times several days. HISTORY OF PRESENT ILLNESS: This is a 52-year-old male who is known to me from previous admission with a history of obesity; BMI of 36; coronary artery disease; pancreatitis; chronic renal failure, on hemodialysis; nephropathy; retinopathy; kidney stones and asthma. He was admitted with cough and shortness of breath in the Acute Care, low-grade fevers and found to have pneumonia. Infectious Disease consultation is requested because of multiple allergies. REVIEW OF SYSTEMS: A 12-point review of systems was performed. Patient did have low-grade fevers and chills, cough, and shortness of breath. No chest pain. No abdominal pain, diarrhea, or constipation. No bright red blood per rectum. No melena. PAST MEDICAL HISTORY: Significant for obesity with BMI of 36; coronary artery disease; pancreatitis; chronic renal failure, on hemodialysis; nephropathy; retinopathy; kidney stones and asthma. PAST SURGICAL HISTORY: Significant for cholecystectomy, left corneal transplant, left arm fistula, and cardiac cath and pacemaker placement, which was recent. ALLERGIES: THE PATIENT IS ALLERGIC TO MOXIFLOXACIN AND PENICILLIN. HE GETS A RASH. HE IS ALSO ALLERGIC TO INSULIN. MEDICATIONS: Reviewed. PHYSICAL EXAMINATION: VITAL SIGNS: Temperature 98, blood pressure 160/70, respiratory rate 18, heart rate of 62. HEENT: Unremarkable. NECK: Supple. LUNGS: Decreased breath sounds. HEART: Normal S1, S2. ABDOMEN: Soft, nontender. No organomegaly. No rebound or guarding. No masses. LABORATORY DATA: Laboratory examination reveals patient to have a white count of 5.9, hemoglobin of 9, platelets of 130. Coagulation is noted. Chemistry reveals a BUN of 67, creatinine is 8.9. Patient's procalcitonin is 2.29. Microbiology reveals blood cultures are reported to be negative. X-ray showed infiltrates. Patient had a CAT scan on the 16, CAT scan of the chest which showed an infiltrate. ASSESSMENT AND PLAN: This is a 52-year-old male who was admitted with bilateral healthcare-associated pneumonia, elevated procalcitonin in the face of renal failure, positive Gram-positive cocci, positive Gram-negative rods. Today is day #3 of meropenem and azithromycin, who would complete 4 to 7 days of antibiotics. We will follow closely with you. Overall long-term prognosis is poor for this patient with multiorgan disease. Jaspreet Forbes MD [facility] # [id number]
--- NOTE | 2017-07-07 09:16 | HP ---
The patient was seen and examined on the bedside on 07/06/2017. CHIEF COMPLAINTS: Shortness of breath, fatigue and tired. HISTORY OF PRESENT ILLNESS: Mr. Joanne Berger, 52-year-old male, my private patient, was admitted in [facility] acute site for shortness of breath, chest pain, came to know that the patient has multilobe pneumonia. Antibiotics were given. Got dialysis. Now improved. Initial CAT scan shows multilobe pneumonia. Repeat chest x-ray shows it is improving. Now, we transferred the patient to TCU for continuity of care for deconditioning. The patient has extensive medical history. He has end-stage renal disease, getting dialysis 3 times a week; left AV fistula; insulin-dependent diabetes mellitus, not controlled; diabetic nephropathy; diabetic neuropathy; diabetic retinopathy; history of asthma; had NSTEMI and hypotension; was admitted in the ICU; has history of pacemaker; multiple time cardiac stenting. The patient was discharged on 06/14/2017, readmitting on 06/16/2017 for bradycardia and chest pain, subsequently discharged home on 06/23/2017. Readmitted again for chest pain and shortness of breath, was so sick missing dialysis, has hypotension, was admitted in the unit for bradycardia on 06/27/2017. Chest AICD/PPM was inserted by Dr. Erickson, discharged on 06/30/2017, now came back on 07/02/2017 with shortness of breath. The patient has pneumonia. ID and Pulmonary is on the case, now transferred to TCU. PAST MEDICAL HISTORY: As above. Coronary artery disease, has cardiac stenting multiple times; bradycardia with pacemaker; renal failure with hemodialysis; COPD; diabetic nephropathy; diabetic neuropathy; diabetic retinopathy; anemia with blood transfusion; cholecystectomy; coronary stenting. ALLERGIES: THE PATIENT IS ALLERGIC WITH NOVOLOG, MOXIFLOXACIN, FENTANYL. FAMILY HISTORY: Mother and brother has kidney failure. HABITS: No smoking. No drugs. No ethanol. REVIEW OF SYSTEMS: The patient was seen and examined on the bedside on 07/06/2017. I am doing history and physical on 07/06/2017. Looking comfortable. No nausea, vomiting, diarrhea. No hematuria or hematochezia. No swelling of the legs. No chest pain or palpitation. No headache. No dizziness. PHYSICAL EXAMINATION: VITAL SIGNS: Temperature 98.2, pulse 62, blood pressure 167/67, respiratory rate 18. HEENT: Head normocephalic, atraumatic. Eyes PERRLA. Extraocular muscles intact. Conjunctivae clear. Nose patent. Mucous membrane moist. NECK: Supple. No carotid bruit. No JVD or thyromegaly. CHEST: Bilaterally symmetrical. HEART: S1 and S2 positive. LUNGS: Clear to auscultation. ABDOMEN: Soft. Bowel sounds positive. No organomegaly. EXTREMITIES: No edema. No cyanosis. NEUROLOGICAL: The patient is awake and alert. Moving all 4 extremities. No focal deficits. LABORATORY DATA: White blood cells 5.9, hemoglobin 9.5, hematocrit 30.6, platelets 140. Sodium 135, potassium 5.7, BUN 67, creatinine 8.9 predialysis, glucose 539. ASSESSMENT AND PLAN: Mr. Jason Berger, 52-year-old male with anemia; hyperkalemia; renal insufficiency; insulin-dependent diabetes mellitus, not controlled; diabetic nephropathy; diabetic retinopathy; diabetic neuropathy; multilobe pneumonia; got antibiotics; came with shortness of breath; getting hemodialysis 3 times a week, Monday, Monday and Monday; left arteriovenous fistula; history of hypertension, but at this time he has hypotension; chronic obstructive pulmonary disease; coronary artery disease with multiple cardiac stenting; left coronary transplant; cholecystectomy; transient ischemic attack; asthma; [id number] myocardial infarction, automatic implantable cardioverter-defibrillator/permanent pacemaker inserted on right on 06/27/2017. Now, the patient is in Transitional Care Unit for continuity of care for getting antibiotics. According to lead relay tester, cardiac standpoint, the patient is stable. Blood pressure is stable. Sugar is very high because we held the patient's long-acting insulin, now restarted Levemir 10 units subcutaneous twice a day. Getting physical therapy. Gastrointestinal and deep venous thrombosis prophylaxis. Repeat labs. We will follow up. Diana Kessler MD
--- NOTE | 2017-07-07 10:44 | CON ---
DATE: 07/06/2017 PULMONARY CONSULTATION REFERRING PHYSICIAN: Dr. Kessler. REASON FOR CONSULTATION: Pneumonia, chronic obstructive lung disease, obstructive sleep apnea syndrome. HISTORY OF PRESENT ILLNESS: This is a 52-year-old gentleman well known to me from previous admission, has a chronic obstructive lung disease, obstructive sleep apnea syndrome, coronary artery disease, status post coronary stents, cardiac arrhythmia, bradycardia, has a cardiopulmonary arrest requiring pacemaker, readmitted with pneumonia, pulmonary infiltrate, placed on antibiotics, bronchodilator, feels better, presently admitted to the TICU for continued care. Still has some cough, sore throat, does not like CPAP but is willing to use it. PAST MEDICAL HISTORY: As per history of present illness. Diabetes, hypertension, renal failure, dialysis-dependent, retinopathy, peripheral vascular disease. ALLERGIES: TO NOVOLOG, ASPART INSULIN, DIVALPROEX, MOXIFLOXACIN, PENICILLIN. FAMILY HISTORY: Positive for hypertension, diabetes and renal failure. MEDICATIONS: He is on Mucomyst 20% inhaled twice a day, Ambien 5 mg at bedtime p.r.n., Brilinta 90 mg twice a day, Colace 100 mg twice a day, DuoNeb every 6 hours [id number], Ecotrin 81 mg daily, insulin coverage, Levemir 10 units before food twice daily, Lipitor 40 mg daily, metoprolol tartrate 25 mg twice a day, Lyrica 5 mg twice a day, meropenem 250 mg every 12 hours, Neurontin 300 mg daily, prednisone 10 mg daily, Protonix 40 mg daily, Tylenol p.r.n., Zithromax 500 mg daily. REVIEW OF SYSTEMS: No headache, no rhinitis. Does have a cough. Not very short of breath. No chest pain, no nausea, no vomiting, no diarrhea. Does have a leg pain. PHYSICAL EXAMINATION: GENERAL: Sitting on the side of bed. VITAL SIGNS: Temp is 98, heart rate is 60, respiratory rate is 18, blood pressure 135/54, pulse ox 100% on nasal cannula. HEENT: Moist mucous membrane. Crowded airway. Mallampati score is 4. NECK: Supple. No JVD. LUNGS: Has a prolonged expiratory phase. There are some rhonchi. HEART: S1 and S2. ABDOMEN: Soft, nontender. No organomegaly. EXTREMITIES: There is no edema. NEUROLOGICAL: Awake, alert, follows simple commands. LABORATORY DATA: Show hemoglobin 9.5, hematocrit 30.6, WBC 5.9, platelet is 140. Sodium 135, potassium 4.7, chloride 91, bicarbonate 27, BUN 67, creatinine 8.9, glucose 358, calcium is 8.9. Microbiology, blood cultures have been negative. Had a chest x-ray done yesterday which shows improving of bilateral infiltrate. IMPRESSION AND PLAN: Chronic obstructive lung disease, bilateral pulmonary infiltrate, obstructive sleep apnea syndrome, cardiac arrhythmia requiring pacemaker, pulmonary hypertension, diabetes, renal failure, dialysis-dependent. From pulmonary point of view, doing well. We will decrease steroids. Continue antibiotics. Placed on CPAP. Gastric prophylaxis, deep vein thrombosis prophylaxis. Fall precaution. Start therapy. We will follow with you. Jarred Escalera MD
--- NOTE | 2017-07-07 19:15 | CP.PCM.PN ---
Subjective - Date & Time of Evaluation Date of Evaluation: 07/07/17 Time of Evaluation: 11:35 - Subjective Subjective: Comfortable, breathing better, no fevers, eating well, no diarrhea. Objective - Vital Signs/Intake and Output Vital Signs (last 24 hours): Temp Pulse Resp BP Pulse Ox 98.4 F 60 18 135/54 L 100 07/06/17 17:01 07/06/17 17:47 07/06/17 17:01 07/06/17 17:47 07/06/17 17:01 - Medications Medications: Current Medications Acetaminophen (Tylenol 325mg Tab) 650 mg PO Q6H PRN PRN Reason: Pain, Mild (1-3) Last Admin: 07/06/17 18:45 Dose: 650 mg Acetylcysteine (Acetylcysteine 20%) 3 ml INH BIDRESP [facility] Last Admin: 07/06/17 20:15 Dose: 3 ml Albuterol/Ipratropium (Duoneb 3 Mg/0.5 Mg (3 Ml) Ud) 3 ml IH [id number] [facility] Last Admin: 07/06/17 20:15 Dose: 3 ml Aspirin (Ecotrin) 81 mg PO 0800 [facility] Last Admin: 07/06/17 08:22 Dose: 81 mg Atorvastatin Calcium (Lipitor) 40 mg PO DIN [facility] Last Admin: 07/06/17 17:45 Dose: 40 mg Azithromycin (Zithromax) 500 mg PO DAILY [facility] PRN Reason: Protocol Last Admin: 07/06/17 10:09 Dose: 500 mg Calcium Acetate (Phoslo) 1,334 mg PO WM [facility] Last Admin: 07/06/17 17:46 Dose: 1,334 mg Docusate Sodium (Colace) 100 mg PO BID [facility] Last Admin: 07/06/17 17:46 Dose: Not Given Gabapentin (Neurontin) 300 mg PO DAILY [facility] PRN Reason: Protocol Last Admin: 07/06/17 10:09 Dose: 300 mg Meropenem 250 mg/ Sodium (Chloride) 100 mls @ 100 mls/hr IVPB Q12H [facility] PRN Reason: Protocol Stop: 07/13/17 21:31 Last Admin: 07/06/17 23:31 Dose: 100 mls/hr Insulin Detemir (Levemir) 10 unit SC ACBD [facility] Last Admin: 07/06/17 17:44 Dose: 10 unit Insulin Human Regular (Humulin R Low) 0 units SC ACHS [facility] PRN Reason: Protocol Last Admin: 07/06/17 21:59 Dose: 3 units Metoprolol Tartrate (Lopressor) 25 mg PO 0800,1800 [facility] Last Admin: 07/06/17 17:47 Dose: 25 mg Pantoprazole Sodium (Protonix Ec Tab) 40 mg PO 0600 [facility] Last Admin: 07/06/17 06:26 Dose: 40 mg Prednisone (Prednisone Tab) 10 mg PO DAILY [facility] Last Admin: 07/06/17 10:08 Dose: 10 mg Pregabalin (Lyrica) 50 mg PO BID [facility] Last Admin: 07/06/17 18:40 Dose: 50 mg Ticagrelor (Brilinta) 90 mg PO BID [facility] Last Admin: 07/06/17 17:46 Dose: 90 mg Zolpidem Tartrate (Ambien) 5 mg PO HS PRN; Protocol PRN Reason: Insomnia Last Admin: 07/06/17 21:54 Dose: 5 mg - Labs Labs: 07/06/17 06:00 07/06/17 18:35 - Constitutional Appears: Chronically Ill - Head Exam Head Exam: NORMAL INSPECTION - Neck Exam Neck Exam: absent: Meningismus - Respiratory Exam Respiratory Exam: Decreased Breath Sounds - Cardiovascular Exam Cardiovascular Exam: +S1, +S2 - GI/Abdominal Exam GI & Abdominal Exam: Soft. absent: Tenderness Assessment and Plan - Assessment and Plan (Free Text) Plan: Assessment bilateral healthcare-associated pneumonia, clinically improving history of sepsis with gastroenteritis and C. diff. associated diarrhea ESRD on HD DM obesity CAD S/P PCI retinopathy history of pancreatitis Plan continue intermittent Vancomycin, Merrem and Zithromax day 4 to complete 4-7 days of therapy
[2017-07-07] MEDS: guaiFENesin-Codeine 100-10mg/5ml Syrup (5 ml) UD PO PRN (22:15)
--- NOTE | 2017-07-08 02:16 | PN ---
DATE: PULMONARY PROGRESS NOTE REFERRING PHYSICIAN: Dr. Kessler. SUBJECTIVE: He is sitting on the side of the bed. Night was unremarkable, tolerated CPAP well. Still has some cough, short of breath with exertion. No nausea, no vomiting. Did have some loose bowel movement. No leg pain or leg swelling. OBJECTIVE: GENERAL: In no acute distress. VITAL SIGNS: Temperature is 98, heart rate is 64, respiratory rate is 18, blood pressure 152/56, pulse ox 97% on nasal cannula. HEENT: Moist mucous membrane. Crowded airway. Mallampati score is 4. NECK: Supple. No JVD. LUNGS: Has a prolonged expiratory phase with few rhonchi. HEART: S1 and S2. ABDOMEN: Soft, nontender. No organomegaly. EXTREMITIES: No edema. NEUROLOGIC: Awake and alert, follows simple command. MEDICATIONS: He is on Mucomyst 3 mL every 12 hours, Ambien 5 mg at bedtime p.r.n., Brilinta 90 mg twice a day, Colace 100 mg twice a day, albuterol/Atrovent nebulizer every 6 hours, Ecotrin 81 mg daily, insulin coverage, Levemir 10 units subcu a.c.b., Lipitor 40 mg daily, metoprolol tartrate 25 mg twice a day, Lyrica 50 mg twice a day, meropenem 250 mg daily, Neurontin 300 mg daily, prednisone 10 mg daily, Protonix 40 mg daily, Robitussin with codeine 5 mL every 4 hours p.r.n., Tylenol p.r.n., Zithromax 500 mg daily. LABORATORY DATA: Shows hemoglobin 8.9, hematocrit 27.8, WBC 5.9, platelet is 147. Sodium 137, potassium 4.8, chloride 95, bicarbonate 26, BUN 80, creatinine 10.4, glucose 284, calcium 8.7, phosphorus 5.4, magnesium 2.3, AST 169, ALT 189, alk phos is 67, albumin is 3.9. IMPRESSION AND PLAN: Chronic obstructive lung disease; bilateral pulmonary infiltrate; obstructive sleep apnea syndrome; cardiac arrhythmia, requiring pacemaker; pulmonary hypertension; diabetes; renal failure, dialysis dependent; has diarrhea. Spoke to nursing staff, requested stool for Clostridium difficile, also we will discontinue Colace. Spoke to the patient's mom at bedside. All the questions were answered. Encouraged continuous positive airway pressure use. Fall precaution. Continue therapy. Thank you and we will follow with you. Jarred Escalera MD
[2017-07-08] MEDS: Albuterol-Ipratrop 3 mg / 0.5 (3 ml) UD IH SCH ×4 (03:20→20:31)
--- NOTE | 2017-07-08 04:47 | CON ---
DATE: 07/07/2017 REASON FOR CONSULTATION: Need for dialysis, severe anemia, hyperkalemia. HISTORY OF PRESENTING ILLNESS: A 52-year-old male known to me from multiple evaluations, recent hospitalizations, outpatient dialysis. Patient was initially admitted to medical site with chest pain. He was admitted with shortness of breath. He was found to have pneumonia. He was started on antibiotics. He was aggressively dialyzed. He is now in the transitional care unit to complete his antibiotics and to regain strength. He is feeling much better. He still has some cough. The cough is more at night. He complains of severe chest pain when he has a cough. He denies any fevers. Denies any chills. PAST MEDICAL AND SURGICAL HISTORY: NIDDM, hypertension, CAD, PTCA and stent to the LAD, pulmonary hypertension, symptomatic bradycardia, recent pacemaker placement, pneumonia. FAMILY HISTORY: Hypertension, diabetes, ESRD. SOCIAL HISTORY: No smoking, no alcohol use, no IV drug abuse. ALLERGIES: INSULIN, MOXIFLOXACIN, PENICILLIN. MEDICATIONS: Mucomyst, Ambien, Brilinta, Colace, DuoNeb, Ecotrin, insulin, Lipitor, Lopressor, Lyrica 50 mg b.i.d., meropenem, Neurontin 300 daily, PhosLo 2 tablets with meals, prednisone 10, Protonix, Robitussin with codeine, Tylenol, Zithromax. REVIEW OF SYSTEMS: All systems are reviewed, pertinent positives as mentioned in the history presenting illness, rest unremarkable. PHYSICAL EXAMINATION: GENERAL: Middle-aged male sitting in bed. VITAL SIGNS: Blood pressure 152/66, heart rate 64, respiratory rate 18, temperature 97.2. HEENT: Normocephalic, atraumatic. NECK: Supple, no JVD. LUNGS: Bilateral equal air entry, bilateral basilar rales. CARDIAC: S1 and S2, regular rate and rhythm, no murmur, no rub. ABDOMEN: Obese, distended, soft, nontender, bowel sounds present. EXTREMITIES: Chronic stasis changes, no lower extremity edema. INTAKE AND OUTPUT: Not charted. LABORATORY DATA: Sodium 137, potassium 4.8, chloride 95, CO2 of 26, BUN 80, creatinine 10.4, glucose 106, calcium 8.7, phosphorus 5.4, magnesium 2.3. AST 169, ALT 189, albumin 3.9. WBC 5.9, hemoglobin 8.9, hematocrit 28, platelets 147. ASSESSMENT: 1. Chronic obstructive pulmonary disease exacerbation. 2. Bilateral pneumonia. 3. Congestive heart failure. 4. Coronary artery disease. 5. Recent pacemaker placement. 6. Hyperkalemia. 7. End-stage renal disease. 8. Noninsulin-dependent diabetes mellitus. PLAN: 1. Urgent dialysis. 2. Continue respiratory treatments. 3. Continue antibiotics for pneumonia. 4. Physical therapy. Eva Malcolm MD
[2017-07-08] MEDS: Pantoprazole 40 mg EC Tab PO SCH (05:36)
[2017-07-08] MEDS: Insulin Reg-LOW-Coverage SC SCH ×4 (06:44→21:41)
[2017-07-08] MEDS: Insulin Detemir 100 units/ml Vial (Levemir) SC SCH ×2 (06:46→17:26)
[2017-07-08] MEDS ORDERED: TraMADol/Apap 37.5/325 mg Tab PO PRN ×2 (07:13→07:17)
[2017-07-08] MEDS: Acetylcysteine 20% Inhal Soln (4ml) INH SCH ×2 (07:25→20:31)
[2017-07-08] MEDS: guaiFENesin-Codeine 100-10mg/5ml Syrup (5 ml) UD PO PRN (08:08)
--- NOTE | 2017-07-08 11:17 | PN ---
DATE: 07/07/2017 SUBJECTIVE: The patient was seen and examined on the bedside on 07/07/2017, mother was sitting on the bedside, also complaining about chest pain especially musculoskeletal after coughing. Night was unremarkable, tolerated CPAP very well, but still coughing, shortness of breath with exertion and no fever, no chills. No nausea, vomiting or diarrhea. He has some bowel movements. Nurses collecting samples of the stool. No fever, no chills. PHYSICAL EXAMINATION: VITAL SIGNS: Temperature 98, heart rate 64, respiratory rate 18, blood pressure 150/56, pulse oximetry 97% nasal cannula. HEENT: Head normocephalic, atraumatic. Eyes PERRLA. Extraocular muscles intact. Conjunctivae clear. Nose patent. Mucous membrane moist. NECK: Supple. No carotid bruit. No JVD or thyromegaly. CHEST: Bilaterally symmetrical. HEART: S1 and S2 positive. LUNGS: Clear to auscultation. ABDOMEN: Soft. Bowel sounds positive. No organomegaly. EXTREMITIES: No edema. No cyanosis. NEUROLOGICAL: The patient is awake and alert. Moving all four extremities. No focal deficits. MEDICATIONS: Mucomyst, Ambien, Brilinta, Colace, albuterol, Ecotrin, insulin, Levemir, Lipitor, metoprolol, Lyrica, meropenem, Neurontin, prednisone, Protonix, Robitussin, Tylenol, Zithromax. LABORATORY DATA: Hemoglobin 8.9, hematocrit 27.8, white blood cells 5.9, platelets 147. Sodium 137, potassium 4.8, BUN 80, creatinine 10.4, magnesium 2.3, AST 169, ALT 189. ASSESSMENT AND PLAN: Mr. Jason Miramontes, my private patient has multiple medical problems, chronic obstructive lung disease; bilateral pulmonary infiltrates, got antibiotics; obstructive sleep apnea syndrome; and now has diarrhea, collecting stool for clostridium difficile toxin colitis; cardiac arrhythmia; requiring pacemaker; pulmonary hypertension; insulin-dependent diabetes mellitus, uncontrolled, sometimes the patient is getting attacks of hyperglycemia, so we are increasing Levemir very slowly; renal failure on hemodialysis 3 times a week. Length of time discussion done with the patient, the patient's mother, and the patient's nurse. Dr. Escalera discontinued the Colace. The patient is on Neurontin and Lyrica together. I will stop Lyrica. All the questions answered. Continue positive pressure airway, fall precautions, cough medications, pain management, physical therapy. We will follow. Diana Kessler MD
--- NOTE | 2017-07-08 20:40 | PN ---
DATE: 07/08/2017 PULMONARY PROGRESS NOTE REFERRING PHYSICIAN: Dr. Kessler. SUBJECTIVE: Patient is participating in therapy. Night was unremarkable, not very found of CPAP. Breathing is a little improved. Still have some cough. No nausea, no vomiting. No diarrhea. Trace leg swelling. OBJECTIVE: GENERAL: In no acute distress. VITAL SIGNS: Temperature is 98, heart rate is 64, respiratory rate is 18, blood pressure 152/56, pulse ox 97% on room air. HEENT: Moist mucous membrane. No ulcer or thrush. NECK: Supple. No JVD. LUNGS: Has a few scattered rhonchi and wheezing. HEART: S1 and S2. ABDOMEN: Soft, nontender. No organomegaly. EXTREMITIES: Trace edema. NEUROLOGIC: Awake and alert, follows simple command. MEDICATIONS: He is on Mucomyst inhaled twice a day, Ambien 5 mg at bedtime p.r.n., Brilinta 90 mg twice a day with DuoNeb every 6 hours [id number], Ecotrin 81 mg daily, insulin coverage, Levemir 10 units subcu a.c.b.d., Lipitor 40 mg daily, meropenem 250 mg twice a day, Neurontin 300 mg three times a day, Prandin 2 mg a.c., prednisone 5 mg daily, Protonix 40 mg daily, Robitussin with codeine 5 mL every 4 hours p.r.n., Tylenol p.r.n., Ultracet 37.5/325 one tab every 8 hours p.r.n. Zithromax 500 mg daily. LABORATORY DATA: Shows blood sugar this afternoon is 195. Microbiology, stool for C. diff is negative. IMPRESSION AND PLAN: Chronic obstructive lung disease; bilateral pulmonary infiltrate; obstructive sleep apnea syndrome; cardiac arrhythmia, requiring pacemaker; pulmonary hypertension; diabetes; renal failure, dialysis dependent. Pulmonary point of view, doing okay. Continue p.o. and inhaled bronchodilator. Encourage CPAP use. Gastric prophylaxis. Fall precautions. Being followed by Nephrology. Thank you and we will follow with you. Jarred Escalera MD
--- NOTE | 2017-07-08 21:04 | PN ---
DATE: 07/08/2017 SUBJECTIVE: The patient is in bed, in no acute distress. PHYSICAL EXAMINATION: VITAL SIGNS: Temperature of 97, blood pressure is 126/60, respiratory rate 22. HEENT: Unremarkable. NECK: Supple. LUNGS: Have decreased breath sounds. HEART: Normal S1 and S2. ABDOMEN: Soft. LABORATORY DATA: Reveals a white count of 5.9, hemoglobin of 8, platelets of 147 and BUN of 80, creatinine of 10. Microbiology revels C. diff toxin and antigen are negative. ASSESSMENT AND PLAN: This is a 52-year-old male who was seen earlier this morning in room 321, Transitional Care with bilateral healthcare-associated pneumonia, much improved, IV access is a problem in a patient with end stage renal disease, on hemodialysis; diabetes, one meropenem and Zithromax day #5. We will discontinue the meropenem, patient has had adequate therapy and complete 5 to 7 days of p.o. Zithromax, today is day #5 of 7 days. Jaspreet Forbes MD
[2017-07-09] MEDS: Albuterol-Ipratrop 3 mg / 0.5 (3 ml) UD IH SCH ×4 (01:05→20:41)
[2017-07-09] MEDS: Pantoprazole 40 mg EC Tab PO SCH (05:32)
[2017-07-09] MEDS: Insulin Detemir 100 units/ml Vial (Levemir) SC SCH ×2 (07:00→18:02)
[2017-07-09] MEDS: Insulin Reg-LOW-Coverage SC SCH ×4 (07:00→22:13)
[2017-07-09] MEDS: Acetylcysteine 20% Inhal Soln (4ml) INH SCH ×2 (07:30→20:41)
--- NOTE | 2017-07-09 22:12 | PN ---
DATE: 07/09/2017 SUBJECTIVE: The patient is in bed, in no acute distress, nontoxic. PHYSICAL EXAMINATION: VITAL SIGNS: Temperature is 98, blood pressure is 120/50, respiratory rate of 20. HEENT: Unremarkable. NECK: Supple. LUNGS: Have decreased breath sounds. HEART: Normal S1 and S2. ABDOMEN: Soft, nontender. No organomegaly, no rebound, no guarding, no masses. LABORATORY DATA: Reveals a white count of 5.9 and hemoglobin is 8.9, platelets of 147. Creatinine is 10. ASSESSMENT AND PLAN: This is a 52-year-old male who was seen earlier today in [facility] with bilateral healthcare-associated pneumonia and the patient on chronic renal disease, on hemodialysis, was completed the meropenem therapy, now on day #6 of p.o. Zithromax, will complete 7 days of p.o. Zithromax. Review of orders reveals the patient is also on prednisone in addition to the Zithromax. Jaspreet Forbes MD
--- NOTE | 2017-07-09 23:58 | PN ---
DATE: 07/09/2017 PULMONARY PROGRESS NOTE REFERRING PHYSICIAN: Diana Kessler MD SUBJECTIVE: He is out of bed to chair. Night was unremarkable, tolerated the CPAP well. No headache. No rhinitis. Cough is better. No abdominal pain. No leg pain, leg swelling. OBJECTIVE: GENERAL: In no acute distress. VITAL SIGNS: Temperature is 98, heart rate is 59, respiratory rate is 20, blood pressure 129/51, pulse ox 100% on room air. HEENT: Moist mucous membrane. Crowded airway. Mallampati score is IV. NECK: Supple. No JVD. LUNGS: Has a few scattered rhonchi, prolonged expiratory phase. HEART: S1 and S2. ABDOMEN: Soft, nontender. No organomegaly. EXTREMITIES: There is no edema. NEUROLOGIC: Awake and alert, follows simple command. MEDICATIONS: He is on Mucomyst 20% inhaled twice a day, Ambien 5 mg at bedtime p.r.n., Brilinta 90 mg twice a day, DuoNeb every 6 hours, Ecotrin 81 mg daily, insulin coverage, Levemir 10 units subcu a.c.b.d., Lipitor 40 mg daily, Neurontin 300 mg three times a day, PhosLo with meals, Prandin 2 mg a.c., prednisone 3 mg daily, Protonix 40 mg daily, Tylenol p.r.n., Ultracet 37.5/325 one tab every 8 hours p.r.n. Zithromax 500 mg daily. LABORATORY DATA: Reviewed. Blood sugar this morning was 318. IMPRESSION AND PLAN: Chronic obstructive lung disease; bilateral pulmonary infiltrate; obstructive sleep apnea syndrome; cardiac arrhythmia, requiring pacemaker; pulmonary hypertension; diabetes; renal failure, on dialysis. Pulmonary point of view, doing okay. Encourage CPAP use. Keep head at 45 degrees. We will discontinue prednisone. Continue inhaled bronchodilator. Gastric prophylaxis. Fall precautions. Thank you and we will follow with you. Jarred Escalera MD
[2017-07-10] MEDS: Albuterol-Ipratrop 3 mg / 0.5 (3 ml) UD IH SCH ×4 (04:17→20:04)
[2017-07-10] MEDS: Pantoprazole 40 mg EC Tab PO SCH (05:34)
[2017-07-10] MEDS: Insulin Reg-LOW-Coverage SC SCH ×4 (06:44→21:29)
[2017-07-10] MEDS: Insulin Detemir 100 units/ml Vial (Levemir) SC SCH ×2 (06:44→19:20)
[2017-07-10] MEDS: Acetylcysteine 20% Inhal Soln (4ml) INH SCH ×2 (07:31→20:04)
--- NOTE | 2017-07-10 10:08 | PN ---
DATE: 07/09/2017 SUBJECTIVE: Patient is 77-year-old male. Patient was seen and examined at the bedside on 07/08/2017. Two daughters were sitting on the bedside also. Length of time discussion done, education done, all questions answered. Patient is getting physical therapy. Appetite is getting better. No nausea, vomiting, or diarrhea. No hematuria or hematochezia. No swelling of the legs. No chest pain, no palpitations. No fever. No chills. PHYSICAL EXAMINATION: VITAL SIGNS: Temperature 98, blood pressure 130/70, respiratory rate 18. HEENT: Head normocephalic, atraumatic. Eyes PERRLA. Extraocular muscles intact. Conjunctivae clear. Nose patent. Mucous membrane moist. NECK: Supple. No carotid bruit. No JVD or thyromegaly. CHEST: Bilaterally symmetrical. HEART: S1 and S2 positive. LUNGS: Clear to auscultation. ABDOMEN: Soft. Bowel sounds positive. No organomegaly. EXTREMITIES: No edema. No cyanosis. NEUROLOGICAL: Patient is awake and alert. Follows simple commands. MEDICATIONS: Ambien, vitamin D, Dulcolax, Feosol, Lipitor, MiraLax, Neurontin, Norvasc, Pepcid, Periactin, Synthroid, multivitamins. LABORATORY DATA: We do not have recent labs today, but I reviewed old labs. Glucose 98, 109. ASSESSMENT AND PLAN: The patient is a 77-year-old male with multiple medical problems, came with herpes zoster, on acyclovir, improved. No rashes , sometimes having pain like postherpetic neuralgia. History of chronic obstructive pulmonary disease, asthma, hypertension, deconditioning, coronary artery disease, history of community-acquired pneumonia, history of sepsis, dyslipidemia, gastric and deep venous thrombosis prophylaxis. Repeat labs. Discussion done with patient's two daughters. We will follow up. Diana Kessler MD
--- NOTE | 2017-07-10 10:10 | PN ---
DATE: 07/08/2017 SUBJECTIVE: The patient is a 52-year-old male. Patient was seen and examined at the bedside on 07/08/2017. Looking comfortable. No nausea, vomiting, or diarrhea. No hematuria or hematochezia. No swelling of the legs. No chest pain. No palpitation. No headache or dizziness. Got physical therapy. Brother was sitting at the bedside also. PHYSICAL EXAMINATION: HEENT: Head: Normocephalic, atraumatic. Eyes: PERRLA. Extraocular muscles intact. Conjunctivae clear. Nose: patent. Mucous membranes moist. NECK: Supple. No carotid bruits, JVD or thyromegaly. CHEST: Bilaterally symmetrical. HEART: S1, S2 positive. LUNGS: Clear to auscultation. ABDOMEN: Soft, bowel sounds present. No organomegaly. EXTREMITIES: No edema. No cyanosis. NEUROLOGICAL: Patient is awake, alert. Moving all four extremities. No focal deficits. MEDICATIONS: Reviewed by me. Patient is on Mucomyst, Ambien, Brilinta, DuoNeb, Ecotrin, insulin, Levemir, Lipitor, Prandin, prednisone, getting Ultracet. LABORATORY DATA: We do not have recent labs today, but I reviewed old labs. Blood sugar is 195. ASSESSMENT AND PLAN: Mr. Miramontes is a 52-year-old male, my private patient, has chronic obstructive lung disease, bilateral pulmonary infiltrates, getting antibiotics, , sleep apnea syndrome, cardiac arrhythmia, got pacemaker, pulmonary hypertension, diabetes, renal failure on hemodialysis three times a week. Patient had diabetic nephropathy, diabetic retinopathy, diabetic neuropathy. Getting physical therapy and occupational therapy evaluation. We will continue present treatment, repeat labs. We will follow. Diana Kessler MD
[2017-07-10 14:06] LABS: BASO # 0.02 K/mm3 (0.0-2.0); BASO % 0.3 % (0.0-3.0); EOS # 0.3 (0.0-0.7); EOS % 4.4 % (1.5-5.0); GRAN # 4.36 (1.4-6.5); GRAN % 68.6 % (50.0-68.0); HEMOGLOBIN 8.9 g/dL (14.0-18.0); LYMPH # 1.1 (1.2-3.4); LYMPH % 16.8 % (22.0-35.0); MEAN CELL VOLUME 91.4 fl (80.0-105.0); MEAN CORPUSCULAR HEMOGLOBIN 29.6 pg (25.0-35.0); MEAN CORPUSCULAR HGB CONC 32.4 g/dl (31.0-37.0); MEAN PLATELET VOLUME 12.2 fl (7.0-11.0); MONO # 0.6 (0.1-0.6); MONO % 9.9 % (1.0-6.0); RBC 3.01 10^6/uL (3.5-6.1); RED CELL DISTRIBUTION WIDTH 17.2 % (11.5-14.5); WHITE BLOOD COUNT 6.4 10^3/ul (4.5-11.0)
[2017-07-10 14:21] LABS: ALBUMIN 4.1 g/dL (3.0-4.8); CALCIUM 8.6 mg/dL (8.4-10.5)
[2017-07-10 17:08] VITALS: TEMP 98.1; O2SAT 99
--- NOTE | 2017-07-10 17:22 | PN ---
DATE: 07/09/2017 SUBJECTIVE: Patient was seen and examined in his room, looking comfortable. Brother was sitting with the patient also. The patient just finished his physical and occupational therapy, tolerated the CPAP very well, tolerating food very well, still cough and is walking, but cough is getting better. No abdominal pain. No swelling of legs. No fever. No chills. PHYSICAL EXAMINATION: VITAL SIGNS: Temperature 98, heart rate 59, respiratory rate 20, blood pressure 129/50, pulse oximetry 100% on room air. HEENT: Head: Normocephalic, atraumatic. Eyes: PERRLA. Extraocular muscles intact. Conjunctivae clear. Nose: patent. Mucous membranes moist. NECK: Supple. No carotid bruits, JVD or thyromegaly. CHEST: Bilaterally symmetrical. HEART: S1, S2 positive. LUNGS: Clear to auscultation. ABDOMEN: Soft. Bowel sounds present. No organomegaly. EXTREMITIES: No edema. No cyanosis. NEUROLOGICAL: Patient is awake, alert. Moving all four extremities. No focal deficits. MEDICATIONS: Mucomyst, Ambien, Brilinta, DuoNeb, insulin, Lipitor, Neurontin, PhosLo, prednisone, Protonix, Tylenol, Ultracet, Zithromax. LABORATORY DATA: We do not have recent labs today, but I reviewed old labs. His glucose is 318. ASSESSMENT AND PLAN: Mr. Jason Berger is a 52-year-old male with history of multiple medical problems, multilobar pneumonia, getting antibiotics; chronic obstructive lung disease, sleep apnea syndrome; history of cardiac arrhythmia, requiring pacemaker; pulmonary hypertension; insulin-dependent diabetes mellitus, not very well controlled; renal failure, getting dialysis three times a week; having diabetic neuropathy, diabetic nephropathy, diabetic retinopathy. Encouraged CPAP use at night. Dr. Escalera discontinuing apparently is not appreciated. Getting physical therapy. Gastrointestinal and deep venous thrombosis prophylaxis. Repeat labs. We will follow. Diana Kessler MD
--- NOTE | 2017-07-10 17:31 | PN ---
DATE: 07/10/2017 SUBJECTIVE: The patient is seen in the dialysis unit. He is awake. He is alert. He is comfortable. PHYSICAL EXAMINATION: GENERAL: Blood pressure 129/59, heart rate 59, respiratory rate 20, temperature 98. HEENT: Normocephalic, atraumatic, positive pallor. NECK: Supple. No JVD. LUNGS: Bilateral equal air entry, bilateral equal expansion. CARDIAC: S1 and S2, regular rate and rhythm, no murmur, no rub. ABDOMEN: Soft, nondistended, nontender, bowel sounds present. EXTREMITIES: No lower extremity edema. LABORATORY DATA: WBC 6.4, hemoglobin 90, hematocrit 122. Sodium 135, potassium 5.7, chloride 93, CO2 of 20, BUN 107, creatinine 12.9, glucose 168, calcium 8.6, phosphorus 8.3, magnesium 2.5, albumin 4.1. CURRENT MEDICATIONS: Ambien, Brilinta, DuoNeb, Ecotrin, insulin, Lipitor, gabapentin, PhosLo, Prandin, Protonix, Tylenol, tramadol, Zithromax. ASSESSMENT AND PLAN: 1. Increase PhosLo to 3 tablets three times a day with meals. 2. Stable dialysis today. 3. Dietary counseling regarding fluid restriction. 4. Monitor fingersticks. 5. Check intact PTH. Eva Malcolm MD
--- NOTE | 2017-07-10 20:09 | PN ---
DATE: REASON FOR CONSULTATION AND FOLLOWUP: Multilobar pneumonia, history of coronary artery disease, status post sick sinus syndrome, status post permanent pacemaker. SUBJECTIVE: The patient denies any chest pain, shortness of breath, or any palpitation. Feels a lot better. OBJECTIVE: GENERAL: Not in apparent distress, walking in the hallway. VITAL SIGNS: Temperature afebrile, heart rate 57, blood pressure 129/51. HEENT: PERRLA, intact. NECK: Supple. No carotid bruit. No thyromegaly. CHEST: Clear to auscultation. HEART: S1 and S2, regular. ABDOMEN: Soft. EXTREMITIES: Clubbing and cyanosis negative. LABORATORY DATA: Blood workup as follows: WBC 6.4, hemoglobin 8.9, hematocrit 27.5, and platelet count 122. Chemistry shows sodium 130, potassium 4.7, chloride 93, carbon dioxide 20, anion gap of 23. BUN , creatinine . IMPRESSION: Diabetic nephropathy; diabetic retinopathy; diabetic neuropathy; end-stage renal disease, on dialysis; legally blind; history of coronary artery disease, status post multiple stents, recently in 11/2016; history of permanent pacemaker recently; sick sinus syndrome and multiple rapid response because of the bradycardia, junctional and symptomatic. Readmitted, came with pneumonia, on IV antibiotic. End-stage renal disease, on dialysis. RECOMMENDATIONS: Continue low-dose beta-valerie, started because the patient has a pacemaker. The patient is resistant to Plavix. Continue ticagrelor that is Brilinta 90 mg twice for 1 year. Continue baby aspirin 81 mg. Continue atorvastatin. Continue aggressive dialysis. Continue Zithromax probably for 5 days, so tomorrow will be the last, we will discontinue Zithromax tomorrow. Thank you, Dr. Kessler for providing us the opportunity in taking care of the patient, Jason Berger. We will follow with you. Jarred Erickson MD
--- NOTE | 2017-07-10 21:57 | CP.PCM.PN ---
Subjective - Date & Time of Evaluation Date of Evaluation: 07/10/17 Time of Evaluation: 11:35 - Subjective Subjective: Breathing better, no fevers, not in distress. Objective - Vital Signs/Intake and Output Vital Signs (last 24 hours): Temp Pulse Resp BP Pulse Ox 98.1 F 55 L 22 127/53 L 99 07/10/17 10:00 07/10/17 10:00 07/10/17 10:00 07/10/17 10:00 07/10/17 10:00 - Medications Medications: Current Medications Acetaminophen (Tylenol 325mg Tab) 650 mg PO Q6H PRN PRN Reason: Pain, Mild (1-3) Last Admin: 07/10/17 14:47 Dose: 650 mg Acetylcysteine (Acetylcysteine 20%) 3 ml INH BIDRESP [facility] Last Admin: 07/10/17 20:04 Dose: 3 ml Albuterol/Ipratropium (Duoneb 3 Mg/0.5 Mg (3 Ml) Ud) 3 ml IH [id number] [facility] Last Admin: 07/10/17 20:04 Dose: 3 ml Aspirin (Ecotrin) 81 mg PO 0800 [facility] Last Admin: 07/10/17 08:25 Dose: 81 mg Atorvastatin Calcium (Lipitor) 40 mg PO DIN [facility] Last Admin: 07/10/17 19:23 Dose: 40 mg Azithromycin (Zithromax) 500 mg PO DAILY CARLOS PRN Reason: Protocol Last Admin: 07/10/17 10:40 Dose: 500 mg Calcium Acetate (Phoslo) 2,001 mg PO WM [facility] Last Admin: 07/10/17 19:24 Dose: 2,001 mg Gabapentin (Neurontin) 300 mg PO TID CARLOS PRN Reason: Protocol Last Admin: 07/10/17 19:24 Dose: 300 mg Insulin Detemir (Levemir) 10 unit SC ACBD [facility] Last Admin: 07/10/17 19:20 Dose: Not Given Insulin Human Regular (Humulin R Low) 0 units SC ACHS [facility] PRN Reason: Protocol Last Admin: 07/10/17 21:29 Dose: Not Given Pantoprazole Sodium (Protonix Ec Tab) 40 mg PO 0600 [facility] Last Admin: 07/10/17 05:34 Dose: 40 mg Repaglinide (Prandin) 2 mg PO AC [facility] Last Admin: 07/10/17 19:23 Dose: 2 mg Ticagrelor (Brilinta) 90 mg PO BID [facility] Last Admin: 07/10/17 19:24 Dose: 90 mg Tramadol/Acetaminophen (Ultracet 37.5/325 Mg) 1 tab PO Q8H PRN PRN Reason: Pain, moderate (4-7) Zolpidem Tartrate (Ambien) 5 mg PO HS PRN; Protocol PRN Reason: Insomnia Last Admin: 07/09/17 23:10 Dose: 5 mg - Labs Labs: 07/10/17 13:40 07/10/17 13:40 - Constitutional Appears: Chronically Ill - Head Exam Head Exam: NORMAL INSPECTION - ENT Exam ENT Exam: Mucous Membranes Moist - Neck Exam Neck Exam: absent: Meningismus - Respiratory Exam Respiratory Exam: Decreased Breath Sounds - Cardiovascular Exam Cardiovascular Exam: +S1, +S2 - GI/Abdominal Exam GI & Abdominal Exam: Soft. absent: Tenderness Assessment and Plan - Assessment and Plan (Free Text) Plan: Assessment bilateral healthcare-associated pneumonia, clinically improving history of sepsis with gastroenteritis and C. diff. associated diarrhea ESRD on HD DM obesity CAD S/P PCI retinopathy history of pancreatitis Plan continue Zithromax day 7 to complete 7 days of therapy; will d/c by tomorrow
--- NOTE | 2017-07-11 01:15 | PN ---
DATE: 07/10/2017 SUBJECTIVE: The patient is seen and examined on the bedside, looking comfortable. No nausea, vomiting, diarrhea. No hematuria or hematochezia. No swelling of the legs. No chest pain. No palpitation. No headache. No dizziness. The patient was seen and examined on the bedside on 07/10/2017. I am doing progress note for 06/09/2017. PHYSICAL EXAMINATION: VITAL SIGNS: Temperature 98.1, pulse 55, respiratory rate 22, blood pressure 127/53, pulse oximetry 99. HEENT: Head normocephalic, atraumatic. Eyes PERRLA. Extraocular muscles intact. Conjunctivae clear. Nose patent. Mucous membrane moist. NECK: Supple. No carotid bruit. No JVD or thyromegaly. CHEST: Bilaterally symmetrical. HEART: S1 and S2 positive. LUNGS: Clear to auscultation. ABDOMEN: Soft. Bowel sounds positive. No organomegaly. EXTREMITIES: No edema. No cyanosis. NEUROLOGICAL: The patient is awake and alert. Moving all 4 extremities. No focal deficits. LABORATORY DATA: White blood cells 6.4, hemoglobin 8.9, hematocrit 27.5, platelets 122. Sodium 135, potassium 5.7, BUN 107, creatinine 12.9, glucose 158. MEDICATIONS: Tylenol, acetylcysteine, DuoNeb, Ecotrin, Lipitor, Zithromax, PhosLo, Neurontin, Levemir, Protonix, Prandin, Brilinta, Ultracet, Ambien. ASSESSMENT AND PLAN: Mr. Jason Berger, 52-year-old male with anemia; hyperkalemia; renal insufficiency; hypochloremia; insulin-dependent diabetes mellitus type 2, not very well controlled; has bilateral healthcare-associated pneumonia, clinically improved; history of sepsis with gastroesophageal reflux with gastroenteritis and Clostridium difficile toxin colitis; diarrhea; end-stage renal disease, on hemodialysis 3 times a week; history of diabetic nephropathy; diabetic retinopathy; diabetic neuropathy; diabetes mellitus; obesity; coronary artery disease, status post percutaneous coronary intervention; history of pancreatitis. Continue azithromycin day 7 in order to complete the day 7. We will discharge tomorrow as per Dr. Pj Quinteros. Physical therapy. Out of bed. End-stage renal disease, we will follow up. Diana Kessler MD
[2017-07-11] MEDS: Albuterol-Ipratrop 3 mg / 0.5 (3 ml) UD IH SCH ×3 (02:40→13:16)
[2017-07-11] MEDS: Pantoprazole 40 mg EC Tab PO SCH (05:21)
[2017-07-11] MEDS: Insulin Reg-LOW-Coverage SC SCH ×2 (06:31→12:27)
[2017-07-11] MEDS: Insulin Detemir 100 units/ml Vial (Levemir) SC SCH (06:31)
--- NOTE | 2017-07-11 07:30 | CP.PCM.PN ---
Subjective - Date & Time of Evaluation Date of Evaluation: 07/11/17 Time of Evaluation: 06:55 - Subjective Subjective: I am feeling okay, feels better, denies chest pain and shortness of breath Reason for consult: Continuity of care in TCU, extensive medical history that includes, hypertension, CAD with stents, SSS with AICD/PPM, COPD, ESRD with hemodialysis. Seen and examined by me and Dr. Erickson Objective - Vital Signs/Intake and Output Vital Signs (last 24 hours): Temp Pulse Resp BP Pulse Ox 98.1 F 55 L 22 127/53 L 99 07/10/17 10:00 07/10/17 10:00 07/10/17 10:00 07/10/17 10:00 07/10/17 10:00 - Medications Medications: Current Medications Acetaminophen (Tylenol 325mg Tab) 650 mg PO Q6H PRN PRN Reason: Pain, Mild (1-3) Last Admin: 07/10/17 14:47 Dose: 650 mg Acetylcysteine (Acetylcysteine 20%) 3 ml INH BIDRESP [facility] Last Admin: 07/10/17 20:04 Dose: 3 ml Albuterol/Ipratropium (Duoneb 3 Mg/0.5 Mg (3 Ml) Ud) 3 ml IH [id number] [facility] Last Admin: 07/11/17 02:40 Dose: Not Given Aspirin (Ecotrin) 81 mg PO 0800 [facility] Last Admin: 07/10/17 08:25 Dose: 81 mg Atorvastatin Calcium (Lipitor) 40 mg PO DIN [facility] Last Admin: 07/10/17 19:23 Dose: 40 mg Azithromycin (Zithromax) 500 mg PO DAILY [facility] PRN Reason: Protocol Last Admin: 07/10/17 10:40 Dose: 500 mg Calcium Acetate (Phoslo) 2,001 mg PO WM [facility] Last Admin: 07/10/17 19:24 Dose: 2,001 mg Gabapentin (Neurontin) 300 mg PO TID [facility] PRN Reason: Protocol Last Admin: 07/10/17 19:24 Dose: 300 mg Insulin Detemir (Levemir) 10 unit SC ACBD [facility] Last Admin: 07/11/17 06:31 Dose: Not Given Insulin Human Regular (Humulin R Low) 0 units SC ACHS [facility] PRN Reason: Protocol Last Admin: 07/11/17 06:31 Dose: Not Given Pantoprazole Sodium (Protonix Ec Tab) 40 mg PO 0600 [facility] Last Admin: 07/11/17 05:21 Dose: 40 mg Repaglinide (Prandin) 2 mg PO AC [facility] Last Admin: 07/10/17 19:23 Dose: 2 mg Ticagrelor (Brilinta) 90 mg PO BID [facility] Last Admin: 07/10/17 19:24 Dose: 90 mg Tramadol/Acetaminophen (Ultracet 37.5/325 Mg) 1 tab PO Q8H PRN PRN Reason: Pain, moderate (4-7) Last Admin: 07/11/17 00:55 Dose: 1 tab Zolpidem Tartrate (Ambien) 5 mg PO HS PRN; Protocol PRN Reason: Insomnia Last Admin: 07/10/17 22:03 Dose: 5 mg - Labs Labs: 07/10/17 13:40 07/10/17 13:40 - Constitutional Appears: No Acute Distress - Head Exam Head Exam: NORMAL INSPECTION, NORMOCEPHALIC - ENT Exam ENT Exam: Mucous Membranes Moist, Normal Exam - Respiratory Exam Respiratory Exam: Clear to Ausculation Bilateral, NORMAL BREATHING PATTERN - Cardiovascular Exam Cardiovascular Exam: +S1, +S2 Additional comments: No JVD - Extremities Exam Extremities Exam: Full ROM, Normal Capillary Refill Additional comments: left AV fistula, positive bruit - Neurological Exam Neurological Exam: Alert, Awake, Oriented x3 - Psychiatric Exam Psychiatric exam: Normal Affect, Normal Mood - Skin Skin Exam: Dry, Intact, Normal Color, Warm Assessment and Plan - Assessment and Plan (Free Text) Assessment: IMPRESSION: 52 year old male who was readmitted to [facility] due to shortness of breath and transferred to TCU for deconditioning. Patient has extensive medical history. history of ESRD on hemodialysis MWF, left AV fistula , hypertension, DM 2, CAD with stents, left cornea transplant,cholecystectomy, TIA and asthma. 06/12/17 had NSTEMI and hypotension and admitted to ICU. and was discharged 06/14/17. Readmitted on 06/16 for bradycardia and chest pain subsequently discharged home. 06/23/17 readmitted again for chest pain and shortness of breath after missing dialysis treatment. Had episode of hypotension andRRT was called and patient was transferred to ICU. for bradycardia. 06/27 right chest AICD/PPM inserted. and was discharged 06/30/17. However, readmitted again 07/03/17 due to shortness of breath. Patient has history of asthma. In TCU for deconditioning. pneumonia Plan: Being treated for pneumonia, today is last day of Zithromax Doing well Cardiac status stable Continue current medications Continue current treatment Possible discharge tommorrow. Will follow up Plan and treatment discussed with Dr. Erickson
[2017-07-11] MEDS: Acetylcysteine 20% Inhal Soln (4ml) INH SCH (07:44)
--- NOTE | 2017-07-11 08:20 | PN ---
DATE: 07/10/2017 PULMONARY PROGRESS NOTE REFERRING PHYSICIAN: Diana Kessler MD SUBJECTIVE: He just finished up his dialysis, on a wheelchair, feels good. Night was unremarkable, tolerated CPAP well. No headache, no rhinitis. No nausea, no vomiting, no diarrhea. No leg pain or leg swelling. OBJECTIVE: GENERAL: In no acute distress. VITAL SIGNS: Temperature is 98, heart rate is 55, respiratory rate is 22, blood pressure is 127/53, pulse of 99% on room air. HEENT: Moist mucous membranes. Crowded airway. NECK: Supple. No JVD. LUNGS: Have fair airflow with few rhonchi. HEART: S1 and S2. ABDOMEN: Soft, nontender, no organomegaly. EXTREMITIES: There is no much edema. NEUROLOGIC: Awake, alert, follows simple command. MEDICATIONS: He is on Mucomyst 20% inhaled twice a day, Ambien is 5 mg at bedtime p.r.n., Brilinta 90 mg twice a day, DuoNeb every 6 hour, Ecotrin 81 mg daily, insulin coverage, insulin Levemir 10 units subcu a.c.b.d., Lipitor 40 mg daily, gabapentin 300 mg three times a day, PhosLo with meals, Prandin 2 mg before meals., Protonix 40 mg daily, Tylenol p.r.n. basis, Ultracet 37.5/325 one tablet every 8 hours p.r.n., Zithromax 500 mg daily. LABORATORY DATA: Shows hemoglobin 8.9, hematocrit 27.5, WBC 6.4, platelet count is 122. Sodium 132, potassium 5.7, chloride 93, bicarbonate 20, BUN is 107, creatinine 12.9, glucose 205, calcium is 8.6, phosphorus is 8.3, magnesium 2.5. AST 95, ALT 106, alk phos is 54. Albumin is 4.1 and that was before dialysis. IMPRESSION AND PLAN: Chronic obstructive lung disease, bilateral pulmonary infiltrate, obstructive sleep apnea syndrome, cardiac arrhythmia requiring pacemaker, pulmonary hypertension, diabetes, renal failure, dialysis dependent. Pulmonary point of view, doing much better. Will require another dialysis tomorrow because of his wet weight gain. Pulmonary point of view, encouraged CPAP, continue bronchodilator, fall precaution. Thank you and we will follow with you. Jarred Escalera MD [facility] # [id number]
[2017-07-11 11:11] VITALS: BP 144/53; PULSE 65; RESP 20
--- NOTE | 2017-07-11 14:23 | PN ---
DATE: SUBJECTIVE: The patient is currently seen eating crackers and drinking orange juice. He states his sugar was low this morning. He said sugars as low as 34. The patient is scheduled for tentative discharge post extra dialysis treatment today for fluid removal. He will return to [facility] for his usual regular outpatient dialysis upon discharge from the TCU. MEDICATIONS: Medication list reviewed. The patient is currently on acetylcysteine, Ambien, Brilinta, DuoNeb, Ecotrin, sliding scale insulin, Levemir which I believe is on hold, Lipitor, Neurontin, PhosLo, Prandin which should be placed on hold, Protonix, Tylenol, Ultracet and Zithromax. OBJECTIVE: VITAL SIGNS: Blood pressure is 144/53, temperature 98.1, respiratory rate is 20 with a pulse of 65. HEENT: Normocephalic, atraumatic. Conjunctivae are pale. Sclerae nonicteric. NECK: Supple. No neck vein distention. CHEST: Clear to auscultation and percussion. No rales, rhonchi or wheezing. CARDIOVASCULAR: Permanent pacemaker. /AI/MR/TR. No S3. No S4. No rub. ABDOMEN: Soft. Bowel sounds normal. Mild obesity. EXTREMITIES: AV fistula of left upper extremity. No lower extremity cyanosis, clubbing or edema. LABORATORY DATA AND IMAGING: CBC: White blood cell count 6.4, hemoglobin 8.9 with a platelet count of 122,000. Chemistries show glucose is in the 34-85 range. Last chemistries complete, sodium 135, potassium 5.7, BUN 107 with a creatinine of 12.9 that was predialysis yesterday. Calcium 8.6, phosphorus remains elevated at 8.3 with a magnesium of 2.5. ASSESSMENT: 1. Status post bilateral pneumonia. The patient is completing a course of antibiotic therapy. 2. History of end-stage renal disease. The patient continues to have mild hyperkalemia. He will receive an extra dialysis today for fluid removal. He is scheduled for his regular outpatient dialysis tomorrow, assuming his discharge later today post dialysis. 3. History of atherosclerotic heart disease, status post percutaneous transluminal coronary angioplasty and stents. 4. History of symptomatic bradycardia with near cardiac arrest, status post permanent pacemaker. 5. History of pulmonary hypertension. 6. History of aortic stenosis, aortic insufficiency, mitral regurgitation, tricuspid regurgitation. 7. History of pulmonary hypertension. 8. History of anemia secondary to chronic kidney disease. The patient will continue on Aranesp therapy per protocol. 9. History of ldb-ruaenhf-cgozpasgf diabetes mellitus. The patient is on insulin. In light of his hypoglycemia, insulin should be on hold, Prandin should be on hold. 10. History of secondary hyperparathyroidism. Phosphorus is elevated despite taking large doses of binder therapy. It is not clear that he follows a renal diet carefully. PLAN: 1. Complete course of antibiotic therapy. He is currently on oral Zithromax. This can be continued as an outpatient. 2. Continue to monitor glucose carefully. If glucose stabilizes, perhaps discharge post dialysis today. 3. Continue present inhalation therapy. 4. Continue renal diet. 5. Continue cardiac medicines. Toy Martinez MD
[2017-07-11 15:31] LABS: HEMOGLOBIN 8.9 g/dL (14.0-18.0); MEAN CORPUSCULAR HEMOGLOBIN 29.8 pg (25.0-35.0); MEAN CORPUSCULAR HGB CONC 32.4 g/dl (31.0-37.0); MEAN PLATELET VOLUME 12.2 fl (7.0-11.0); RBC 2.99 10^6/uL (3.5-6.1); RED CELL DISTRIBUTION WIDTH 16.8 % (11.5-14.5)
[2017-07-11 15:56] LABS: ALBUMIN 3.9 g/dL (3.0-4.8); CALCIUM 8.9 mg/dL (8.4-10.5)
--- NOTE | 2017-07-12 04:12 | PN ---
DATE: 07/11/2017 PULMONARY PROGRESS NOTE REFERRING PHYSICIAN: Diana Kessler MD SUBJECTIVE: He is sitting up in a chair. Night was unremarkable, tolerated CPAP well. No headache, no rhinitis, no cough. No nausea, no vomiting, no diarrhea. No leg pain, no leg swelling. OBJECTIVE: GENERAL: In no acute distress. VITAL SIGNS: Temperature is 98, heart rate 65, respiratory rate is 20, blood pressure 144/53, pulse ox 99% on room air. HEENT: Moist mucous membranes. No ulcer or thrush. NECK: Supple. No JVD. LUNGS: Have a fair airflow with rhonchi. HEART: S1 and S2. ABDOMEN: Soft, nontender, no organomegaly. EXTREMITIES: No edema. NEUROLOGIC: Awake and follows simple command. MEDICATIONS: Reviewed with no new change in medication reported. LABORATORY DATA: Shows hemoglobin 8.9, hematocrit 27.5, WBC 5, platelet is 123. 136, potassium 4.5, chloride 94, bicarbonate 28, BUN 64, creatinine 8.5, glucose is 68, calcium is 8.9, phosphorus is 6.1, magnesium 2.2. AST 96, ALT 87, alk phos is 52. Albumin is 3.9. IMPRESSION AND PLAN: Chronic obstructive lung disease, bilateral pulmonary infiltrate, obstructive sleep apnea syndrome, cardiac arrhythmia requiring pacemaker, pulmonary hypertension, diabetes, renal failure, dialysis dependent. Pulmonary point of view, doing okay. Continue p.o. and inhaled bronchodilator, fall precaution. Need to qualify again for CPAP as outpatient, may have to repeat a sleep study. We will see him in the office in a couple of days. Thank you and we will follow with you. Jarred Escalera MD
--- NOTE | 2017-07-12 08:53 | PN ---
DATE: 07/11/2017 SUBJECTIVE: The patient is in bed, in no acute distress, nontoxic. PHYSICAL EXAMINATION: VITAL SIGNS: Temperature is 98, blood pressure is 120/70, respiratory rate of 16. HEENT: Unremarkable. NECK: Supple. LUNGS: Have decreased breath sounds. HEART: Normal S1 and S2. ABDOMEN: Soft, nontender. No organomegaly. No rebound, no guarding. No masses. LABORATORY DATA: Is noted. ASSESSMENT AND PLAN: This is a 52-year-old male with bilateral health-care associated pneumonia, clinically improved, with a history of sepsis, gastroenteritis, pseudomembranous colitis, end-stage renal disease, on hemodialysis, diabetic, obesity, coronary artery disease, retinopathy; on Zithromax, and completed 7 days of Zithromax. The patient is for possible discharge. Jaspreet Forbes MD
== END 2017-07-11 18:42 | disposition home or self-care (01) | DRG 193 ==
LOC: TRCU 17:43
PROVIDERS: ADMIT Internal Medicine; ATTEND Internal Medicine
PROC: F07Z9FZ Gait Training/Functional Ambulation Treatment using Assistive, Adaptive, Supportive or Protective Equipment (ICD-10-PCS; principal; 2017-07-06)
PROC: F08Z4ZZ Home Management Treatment (ICD-10-PCS; 2017-07-06)
PROC: 3E0F7GC Introduction of Other Therapeutic Substance into Respiratory Tract, Via Natural or Artificial Opening (ICD-10-PCS; 2017-07-06)
PROC: 5A1D70Z Performance of Urinary Filtration, Intermittent, Less than 6 Hours Per Day (ICD-10-PCS; 2017-07-07)
PROC: 5A1D70Z Performance of Urinary Filtration, Intermittent, Less than 6 Hours Per Day (ICD-10-PCS; 2017-07-10)
PROC: 5A1D70Z Performance of Urinary Filtration, Intermittent, Less than 6 Hours Per Day (ICD-10-PCS; 2017-07-11)
DX: J18.9 Pneumonia, unspecified organism (principal); N18.6 End stage renal disease; I21.4 Non-ST elevation (NSTEMI) myocardial infarction; J44.1 Chronic obstructive pulmonary disease with (acute) exacerbation; J44.0 Chronic obstructive pulmonary disease with (acute) lower respiratory infection; I13.2 Hypertensive heart and chronic kidney disease with heart failure and with stage 5 chronic kidney disease, or end stage renal disease; N25.81 Secondary hyperparathyroidism of renal origin; Z99.2 Dependence on renal dialysis; E11.40 Type 2 diabetes mellitus with diabetic neuropathy, unspecified; E11.21 Type 2 diabetes mellitus with diabetic nephropathy; E11.319 Type 2 diabetes mellitus with unspecified diabetic retinopathy without macular edema; E11.22 Type 2 diabetes mellitus with diabetic chronic kidney disease; E11.51 Type 2 diabetes mellitus with diabetic peripheral angiopathy without gangrene; I25.10 Atherosclerotic heart disease of native coronary artery without angina pectoris; G47.33 Obstructive sleep apnea (adult) (pediatric); I27.20 Pulmonary hypertension, unspecified; I50.9 Heart failure, unspecified; E87.5 Hyperkalemia; E11.65 Type 2 diabetes mellitus with hyperglycemia; E11.649 Type 2 diabetes mellitus with hypoglycemia without coma; D63.1 Anemia in chronic kidney disease; Z79.2 Long term (current) use of antibiotics; Z79.4 Long term (current) use of insulin; I08.3 Combined rheumatic disorders of mitral, aortic and tricuspid valves; Y95 Nosocomial condition; Z94.7 Corneal transplant status; E66.9 Obesity, unspecified; Z68.36 Body mass index [BMI] 36.0-36.9, adult; Z95.5 Presence of coronary angioplasty implant and graft; Z91.15 Patient's noncompliance with renal dialysis; Z95.810 Presence of automatic (implantable) cardiac defibrillator; Z90.49 Acquired absence of other specified parts of digestive tract

== ENCOUNTER 2017-07-21 01:18 | Inpatient (IN) | payer MEDICARE, OTHER ==
--- NOTE | 2017-07-21 01:40 | ED PDOC ---
Arrival/HPI - General Chief Complaint: Medical Clearance Time Seen by Provider: 07/21/17 01:26 Historian: Patient - History of Present Illness Narrative History of Present Illness (Text): 07/21/17 01:37 A 52 year old male, whose past medical history includes CAD, ESRD on hemodialysis (M/W/F), diabetes, hypertension, cardiac catherization, and stents , presents to the emergency department complaining of open sores to both feet, anxiety, and difficulty sleeping. The patient states that he has been feeling tremulous. He states that he is unable to put pressure on his feet because of the sores. The patient notes that he is due for dialysis tomorrow. The patient denies fevers, headache, dizziness, chest pain, shortness of breath, dyspnea on exertion, cough, abdominal pain, nausea, vomiting, diarrhea, back pain, neck pain, urinary/bowel changes, or any other complaint. PMD: Dr. Kessler Taxation Agent: Dr. Malcolm Time/Duration: Other (Today) Symptom Onset: Sudden Symptom Course: Unchanged Activities at Onset: Rest, Light Context: Home Past Medical History - Provider Review Nursing Documentation Reviewed: Yes - Past History Past History: No Previous - Infectious Disease Hx of Infectious Diseases: None - Tetanus Immunization Tetanus Immunization: Up to Date - Reproductive Currently Lactating: No - Cardiac Hx Cardiac Disorders: Yes (CAD) Hx Hypertension: Yes Hx Pacemaker: Yes (2 weeks ago with 2 stents) - Pulmonary Hx Chronic Obstructive Pulmonary Disease (COPD): Yes - Neurological Hx Transient Ischemic Attacks (TIA): Yes - HEENT Hx HEENT Disorder: Yes (BILATERAL EYE WITH BLURRY VISION) Hx Cataracts: Yes (HAD SX 05/29/12) Other/Comment: left eye cornea transplant,RENAL RETINOPATHY, glasses - Renal Hx Renal Failure: Yes (ESRD (on hemodialysis 3x/wk)) Other/Comment: mon/wed/fri dialysis acess left upper arm - Endocrine/Metabolic Hx Diabetes Mellitus Type 2: Yes - Hematological/Oncological Hx Anemia: Yes (With transfusions) - Integumentary Hx Dermatological Disorder: Yes (BILATERAL EDEMA TO UPPER AND LE,SKIN DRYNESS) - Musculoskeletal/Rheumatological Hx Musculoskeletal Disorders: No Hx Falls: No - Gastrointestinal Hx Gastrointestinal Disorders: No - Genitourinary/Gynecological Hx Genitourinary Disorders: Yes (esrd on HD MWF) Hx Reproductive Disorders: Yes (bph) - Psychiatric Hx Psychophysiologic Disorder: No Hx Anxiety: Yes Hx Substance Use: No - Surgical History Hx Cholecystectomy: Yes (08/15/12) Hx Coronary Stent: Yes (x2 monday06/13/17) Other/Comment: FISTULA/pacemaker 2 weeks ago - Anesthesia Hx Anesthesia: Yes Hx Anesthesia Reactions: No Hx Malignant Hyperthermia: No - Suicidal Assessment Feels Threatened In Home Enviroment: No Family/Social History - Physician Review Nursing Documentation Reviewed: Yes Family/Social History: No Known Family HX Smoking Status: Never Smoked Hx Alcohol Use: No Hx Substance Use: No Hx Substance Use Treatment: No Allergies/Home Meds Allergies/Adverse Reactions: Allergies insulin aspart [From Novolog] Allergy (Intermediate, Verified 07/21/17 01:26) ITCHING ANY INSULIN THAT STARTS WITH NOV- moxifloxacin Allergy (Intermediate, Verified 07/21/17 01:26) ITCHING Penicillins Allergy (Intermediate, Verified 07/21/17 01:26) ITCHING Home Medications: Home Meds Medication Instructions Recorded Confirmed Diclofenac Sodium [Voltaren] 1 appl TOP DAILY 06/14/17 07/05/17 Nateglinide [Starlix] 1 tab PO ACL 06/14/17 07/05/17 Ergocalciferol (Vitamin D2) 50,000 unit PO DAILY 06/16/17 07/05/17 [Vitamin D2] Fenofibrate [Triglide] 160 mg PO DAILY 06/16/17 07/05/17 Multivitamin with Iron 1 each PO DAILY 06/16/17 07/05/17 [Multivitamins with Iron] [place]-3S/Dha/Epa/Fish Oil [Fish 2 cap PO BID 06/16/17 07/05/17 Oil [place]-3 Softgel] Rosuvastatin Calcium [Crestor] 10 mg PO DAILY 06/16/17 07/05/17 Bimatoprost [Lumigan] 1 drp OU HS 07/05/17 07/05/17 Calcium Phosphate Dibas/Vit D3 2 tab PO TID 07/05/17 07/05/17 [Risacal-D Tablet] Cetirizine HCl [Zyrtec] 10 mg PO DAILY 07/05/17 07/05/17 Cetirizine HCl [Zyrtec] 10 mg PO DAILY 07/05/17 07/05/17 Insulin Regular [HumuLIN R] 90 units SC ACB 07/05/17 07/05/17 Insulin Regular [HumuLIN R] 90 units SC ACD 07/05/17 07/05/17 Insulin Human NPH [Humulin N] 70 units SC ACD 07/05/17 07/05/17 Insulin Human NPH [Humulin N] 80 units SC ACB 07/05/17 07/05/17 Salmeterol Xinafoate/Fluticaso 1 puff IH DAILY 07/05/17 07/05/17 [Advair Hfa 230-21] hydrALAZINE [Apresoline] 20 mg PO DAILY 07/05/17 07/05/17 metroNIDAZOLE 0.75% [Metrogel 1 applic TOP DAILY 07/05/17 07/05/17 Cream] Review of Systems - Physician Review All systems were reviewed & negative as marked: Yes - Review of Systems Constitutional: absent: Fevers Cardiovascular: absent: Chest Pain Physical Exam - Physical Exam Narrative Physical Exam (Text): 07/21/17 01:42 Constitutional: No acute distress. Head: Normocephalic. Atraumatic. Eyes: PERRL. ENT: Moist mucous membranes. Neck: Supple. Cardiovascular: Regular rate. Chest: No tenderness. Respiratory: Clear to auscultation bilaterally. GI: Soft. Nontender. Obese. Back: No CVA tenderness. Musculoskeletal: No tenderness or swelling of extremities. Skin: No rash. Ulcerations on bilateral soles. Neurologic: Alert, no focal deficit. Vital Signs Reviewed: Yes Vital Signs Temp Pulse Resp BP Pulse Ox 07/21/17 01:20 98.4 F 63 18 141/60 98 Temperature: Afebrile Blood Pressure: Normal Pulse: Regular Respiratory Rate: Normal Appearance: Positive for: Well-Appearing, Non-Toxic, Comfortable Pain Distress: None Mental Status: Positive for: Alert and Oriented X 3 Medical Decision Making ED Course and Treatment: 07/21/17 01:43 Impression: A 52 year old male presents to the emergency department complaining of ulcerations to the soles of his feet, anxiety, and difficulty sleeping. Plan: -- EKG -- Chest X-ray -- Labs -- Xanax -- Reassess and disposition Progress Notes: EKG: Ordered, reviewed, and independently interpreted the EKG. Rate : 60BPM Rhythm : Ventricularly paced rhythm 07/21/17 02:14: Chest X-ray read and interpreted by me shows no consolidation. 07/21/17 04:14: Case discussed with Dr. Kessler. Accepts patient to her service. - Lab Interpretations Lab Results: 07/21/17 01:50 07/21/17 01:50 Lab Results 07/21/17 01:50: Sodium 140, Potassium 4.6, Chloride 98, Carbon Dioxide 26, Anion Gap 21 H, BUN 57 H, Creatinine 8.1 H*, Est GFR ( Amer) 8, Est GFR ( Non-Af Amer) 7, Random Glucose 200 H, Calcium 7.5 L, Total Bilirubin 0.6, AST 67 H D, ALT 54, Alkaline Phosphatase 74, Total Protein 7.6, Albumin 3.9, Globulin 3.7, Albumin/Globulin Ratio 1.1 07/21/17 01:50: WBC 6.7 D, RBC 2.77 L, Hgb 8.3 L, Hct 26.5 L, MCV 95.7 D, MCH 30.0, MCHC 31.3, RDW 17.0 H, Plt Count 130, MPV 12.5 H, Gran % 69.1 H, Lymph % ( Auto) 17.8 L, Dent % (Auto) 11.1 H, Eos % (Auto) 1.6, Baso % (Auto) 0.4, Gran # 4.60, Lymph # (Auto) 1.2, Dent # (Auto) 0.7 H, Eos # (Auto) 0.1, Baso # (Auto) 0.03 I have reviewed the lab results: Yes - RAD Interpretation Radiology Orders: 07/21/17 01:37 CHEST PORTABLE [RAD] Stat - EKG Interpretation Interpreted by ED Physician: Yes Type: 12 lead EKG - Medication Orders Current Medication Orders: Discontinued Medications Acetaminophen (Tylenol 325mg Tab) 650 mg PO STAT STA Stop: 07/21/17 02:43 Last Admin: 07/21/17 03:00 Dose: 650 mg MAR Pain/Vitals Document 07/21/17 03:00 AD (Rec: 07/21/17 03:22 AD [id number]) Pain Reassessment Is This A Pain ReAssessment? No Presence of Pain Presence of Pain Yes Pain Scale Used Pain Scale Used Numeric Location Pain Location Body Site Generalized Intensity 5 Scale Used Numeric Pain Behavior Facial Grimacing Alprazolam (Xanax) 1 mg PO STAT STA PRN Reason: Protocol Stop: 07/21/17 01:38 Last Admin: 07/21/17 01:58 Dose: 1 mg Ketorolac Tromethamine (Toradol) 30 mg IVP STAT STA Stop: 07/21/17 03:51 Last Admin: 07/21/17 03:56 Dose: 30 mg MAR Pain Assessment Document 07/21/17 03:56 AD (Rec: 07/21/17 03:57 AD [id number]) Pain Reassessment Is this a pain reassessment? No Presence of Pain Presence of Pain Yes Pain Scale Used Pain Scale Used Numeric Location Pain Location Body Site Generalized Description Intensity of Pain at present 5 Pain Behavior Facial Grimacing IVP Administration Document 07/21/17 03:56 AD (Rec: 07/21/17 03:57 AD [id number]) Charges for Administration # of IVP Administrations 1 - Scribe Statement The provider has reviewed the documentation as recorded by the Scribe Mary Lomeli Provider Scribe Attestation: All medical record entries made by the Scribe were at my direction and personally dictated by me. I have reviewed the chart and agree that the record accurately reflects my personal performance of the history, physical exam, medical decision making, and the department course for this patient. I have also personally directed, reviewed, and agree with the discharge instructions and disposition. Disposition/Present on Arrival - Present on Arrival Any Indicators Present on Arrival: Yes History of DVT/PE: No History of Uncontrolled Diabetes: Yes Urinary Catheter: No History of Decub. Ulcer: No History Surgical Site Infection Following: None - Disposition Have Diagnosis and Disposition been Completed?: Yes Diagnosis: Insomnia, Anxiety, Diabetic foot ulcers, ESRD (end stage renal disease) Disposition: HOSPITALIZED Disposition Time: 04:10 Patient Plan: Observation Condition: FAIR Referrals: Diana Kessler MD [Primary Care Provider] - Follow up with primary Forms: Tellyo (Namibian)
[2017-07-21 02:12] LABS: BASO # 0.03 K/mm3 (0.0-2.0); BASO % 0.4 % (0.0-3.0); EOS # 0.1 (0.0-0.7); EOS % 1.6 % (1.5-5.0); GRAN # 4.6 (1.4-6.5); GRAN % 69.1 % (50.0-68.0); HEMOGLOBIN 8.3 g/dL (14.0-18.0); LYMPH # 1.2 (1.2-3.4); LYMPH % 17.8 % (22.0-35.0); MEAN CORPUSCULAR HGB CONC 31.3 g/dl (31.0-37.0); MEAN PLATELET VOLUME 12.5 fl (7.0-11.0); MONO # 0.7 (0.1-0.6); MONO % 11.1 % (1.0-6.0); RBC 2.77 10^6/uL (3.5-6.1); WHITE BLOOD COUNT 6.7 10^3/ul (4.5-11.0)
[2017-07-21 02:19] LABS: MEAN CELL VOLUME 95.7 fl (80.0-105.0)
[2017-07-21 02:28] LABS: ALB/GLOB RATIO 1.1 (1.1-1.8); ALBUMIN 3.9 g/dL (3.0-4.8); CALCIUM 7.5 mg/dL (8.4-10.5)
--- NOTE | 2017-07-21 07:07 | RAD ---
HISTORY: r/o PNA COMPARISON: 07/05/2017 FINDINGS: LUNGS: No active pulmonary disease. PLEURA: No significant pleural effusion identified, no pneumothorax apparent. CARDIOVASCULAR: Cardiomegaly. No evidence of acute, significant cardiovascular disease. Position/ configuration of pacemaker Satisfactory. OSSEOUS STRUCTURES: No significant abnormalities. VISUALIZED UPPER ABDOMEN: Normal. OTHER FINDINGS: None. IMPRESSION: No active disease. No significant interval change compared to the prior examination(s).
[2017-07-21] MEDS ORDERED: Albuterol-Ipratrop 3 mg / 0.5 (3 ml) UD IH SCH (08:00)
[2017-07-21] MEDS: Insulin Reg-LOW-Coverage SC SCH ×4 (08:10→21:21)
[2017-07-21] MEDS: Albuterol-Ipratrop 3 mg / 0.5 (3 ml) UD IH SCH ×3 (09:26→21:00)
[2017-07-21] MEDS: Sildenafil 20 MG TAB PO SCH ×2 (11:35→18:20)
[2017-07-21] MEDS: Ergocalciferol 50,000 Intl Units Cap PO SCH ×2 (11:35→12:45)
[2017-07-21] MEDS: Multivitamin With Minerals Tab PO SCH (11:36)
[2017-07-21] MEDS: FISH OIL PO SCH ×2 (11:36→18:19)
[2017-07-21] MEDS: EPA PO SCH ×2 (11:36→18:19)
[2017-07-21] MEDS: Pantoprazole 40 mg EC Tab PO SCH (11:36)
[2017-07-21] MEDS: DHA PO SCH ×2 (11:36→18:19)
[2017-07-21] MEDS: OMEGA PO SCH ×2 (11:36→18:19)
[2017-07-21] MEDS: [UNRECOGNIZED DRUG - OTHER] PO SCH ×3 (11:37→18:19)
[2017-07-21] MEDS: DICLOFENAC SODIUM TOP SCH (11:37)
[2017-07-21] MEDS: ADVAIR IH SCH (11:38)
--- NOTE | 2017-07-21 13:36 | CP.PCM.CON ---
<Yoselyn Velasco - Last Filed: 07/21/17 13:30> History of Present Illness - History of Present Illness History of Present Illness: 52 y/o male with PMHx of CAD with cardiac stents, pacemaker, renal failure/ESRD on HD (MWF), DM, COPD, anemia seen at bedside for complaints of bilateral heel pain and left sub met 1 callus. Pt states he has a history of uncontrolled diabetes with sugars formerly running in the 400s and 500s. States he has neuropathy which makes him unable to feel sensation in the feet. Admits to pain in the heels where he gets skin cracks. Also states he has pain in the ball of the foot. Admits to formerly having open ulcers there. States he usually follows up with Dr. Jeremiah Restrepo at [facility] for all podiatric concerns. At present denies any F/C/N/V/CP/SOB. Also admits he has fallen twice in the last few days, which he attributes to his neuropathy and heel pain. Review of Systems - Review of Systems All systems: reviewed and no additional remarkable complaints except (per HPI) Past Patient History - Infectious Disease Hx of Infectious Diseases: None - Tetanus Immunizations Tetanus Immunization: Up to Date - Past Medical History & Family History Past Medical History?: Yes - Past Social History Smoking Status: Never Smoked - CARDIAC Hx Cardiac Disorders: Yes (CAD) Hx Hypertension: Yes Hx Pacemaker: Yes (2 weeks ago with 2 stents) - PULMONARY Hx Asthma: Yes Hx Chronic Obstructive Pulmonary Disease (COPD): Yes - NEUROLOGICAL Hx Transient Ischemic Attacks (TIA): Yes - HEENT Hx HEENT Problems: Yes (BILATERAL EYE WITH BLURRY VISION) Hx Cataracts: Yes (HAD SX 05/29/12) Other/Comment: left eye cornea transplant,RENAL RETINOPATHY, glasses - RENAL Date of Last Dialysis Treatment: 07/19/17 Hx Renal Failure: Yes (ESRD (on hemodialysis 3x/wk)) Other/Comment: mon/wed/fri dialysis acess left upper arm - ENDOCRINE/METABOLIC Hx Diabetes Mellitus Type 2: Yes - HEMATOLOGICAL/ONCOLOGICAL Hx Anemia: Yes (With transfusions) - INTEGUMENTARY Hx Dermatological Problems: Yes (BILATERAL EDEMA TO UPPER AND LE,SKIN DRYNESS) - MUSCULOSKELETAL/RHEUMATOLOGICAL Hx Musculoskeletal Disorders: No Hx Arthritis: Yes Hx Falls: Yes - GASTROINTESTINAL Hx Gastrointestinal Disorders: No - GENITOURINARY/GYNECOLOGICAL Hx Genitourinary Disorders: Yes (esrd on HD MWF) - PSYCHIATRIC Hx Psychophysiologic Disorder: No Hx Anxiety: Yes Hx Substance Use: No - SURGICAL HISTORY Hx Cardiac Catheterization: Yes Hx Cholecystectomy: Yes (08/15/12) Hx Coronary Stent: Yes (x2 monday06/13/17) Other/Comment: FISTULA/pacemaker 2 weeks ago - ANESTHESIA Hx Anesthesia: Yes Hx Anesthesia Reactions: No Hx Malignant Hyperthermia: No Meds Allergies/Adverse Reactions: Allergies Allergy/AdvReac Type Severity Reaction Status Date / Time insulin aspart [From Novolog] Allergy Intermediate ITCHING Verified 07/21/17 01: 26 moxifloxacin Allergy Intermediate ITCHING Verified 07/21/17 01:26 Penicillins Allergy Intermediate ITCHING Verified 07/21/17 01:26 - Medications Medications: Current Medications Acetaminophen (Tylenol 325mg Tab) 650 mg PO Q6H PRN PRN Reason: pain Albuterol/Ipratropium (Duoneb 3 Mg/0.5 Mg (3 Ml) Ud) 3 ml IH [id number] [facility] Last Admin: 07/21/17 13:05 Dose: 3 ml Aspirin (Ecotrin) 81 mg PO DAILY [facility] Last Admin: 07/21/17 11:35 Dose: 81 mg Atorvastatin Calcium (Lipitor) 40 mg PO DIN [facility] Cadexomer Iodine (Iodosorb) 0 gm TOP DAILY [facility] Calcium Acetate (Phoslo) 1,334 mg PO WM [facility] Last Admin: 07/21/17 12:10 Dose: 1,334 mg Docusate Sodium (Colace) 100 mg PO BID [facility] Last Admin: 07/21/17 12:45 Dose: Not Given Ergocalciferol (Drisdol 50,000 Intl Units Cap) 1 cap PO Q7D [facility] Last Admin: 07/21/17 12:45 Dose: Not Given Fenofibrate (Tricor) 145 mg PO DAILY [facility] Last Admin: 07/21/17 11:36 Dose: 145 mg Gabapentin (Neurontin) 300 mg PO DAILY [facility] PRN Reason: Protocol Last Admin: 07/21/17 11:34 Dose: 300 mg Insulin Human Regular (Humulin R Low) 0 units SC ACHS [facility] PRN Reason: Protocol Last Admin: 07/21/17 11:37 Dose: Not Given Latanoprost (Xalatan Opht) 0 ml OU HS [facility] Loratadine (Claritin) 10 mg PO DAILY [facility] Last Admin: 07/21/17 12:07 Dose: Not Given Montelukast Sodium (Singulair) 10 mg PO HS [facility] Multivitamins/Minerals (Therapeutic-M Tab) 1 tab PO DAILY [facility] Last Admin: 07/21/17 11:36 Dose: 1 tab Nateglinide (Starlix) 120 mg PO ACL [facility] Last Admin: 07/21/17 11:35 Dose: 120 mg [Risacal-D Tablet] ((Home Med)) 2 tab PO TID [facility] Last Admin: 07/21/17 11:37 Dose: Not Given Diclofenac Sodium [ Voltaren Gel) Home Med 0 appl TOP DAILY [facility] Last Admin: 07/21/17 11:37 Dose: Not Given Bradley-3s/Dha/Epa/Fish Oil (Home Med) 2 cap PO BID [facility] Last Admin: 07/21/17 11:36 Dose: Not Given Advair Hfa 230-21 ((Home Med)) 1 puff IH DAILY [facility] Last Admin: 07/21/17 11:38 Dose: Not Given Pantoprazole Sodium (Protonix Ec Tab) 40 mg PO DAILY [facility] Last Admin: 07/21/17 11:36 Dose: 40 mg Pregabalin (Lyrica) 50 mg PO DAILY [facility] Last Admin: 07/21/17 12:08 Dose: Not Given Sildenafil Citrate (Revatio) 20 mg PO BID [facility] Last Admin: 07/21/17 11:35 Dose: 20 mg Sodium Chloride ([place]) 0 ml NS Q2H PRN PRN Reason: Nasal congestion Tamsulosin HCl (Flomax) 0.4 mg PO DAILY [facility] Last Admin: 07/21/17 11:34 Dose: 0.4 mg Ticagrelor (Brilinta) 90 mg PO BID [facility] Last Admin: 07/21/17 11:35 Dose: 90 mg Zolpidem Tartrate (Ambien) 5 mg PO HS PRN; Protocol PRN Reason: Insomnia Physical Exam - Constitutional Appears: Well, Non-toxic, No Acute Distress - Extremities Exam Additional comments: Lower extremity focused exam: Vasc: DP/PT pulses palpable 2/4. CFT < 3 sec to all digits. No pedal edema noted. Temperature gradient warm to cool Derm: Thickened hyperkeratotic lesion noted sub met 1 of L foot - post debridement, open ulceration measuring approx 0.5cm x 0.3cm x 0.1cm. Purulent bloody drainage expressed during debridement of hyperkeratotic skin, approx 3- 4CC. No malodor, no uriel wound erythema, no fluctuance, no tunneling or undermining. Linear skin fissures noted to bilateral posterior heels, right worse than left. R heel fissure exhibits black eschar tissue at roof of fissure. No fluctuance, no malodor, no drainage noted. Neuro: Protective sensation grossly diminished upon assessment Ortho: Mild tenderness to palpation of sub met 1 hyperkeratosis and bilateral posterior heels at fissure sites - Neurological Exam Neurological exam: Alert, Oriented x3 - Psychiatric Exam Psychiatric exam: Normal Affect, Normal Mood Results - Vital Signs Recent Vital Signs: Last Vital Signs Temp 97.8 F 07/21/17 07:00 Pulse 68 07/21/17 09:31 Resp 20 07/21/17 07:00 BP 149/65 07/21/17 07:00 Pulse Ox 99 07/21/17 07:00 - Labs Result Diagrams: 07/21/17 01:50 07/21/17 01:50 Labs: Laboratory Results - last 24 hr 07/21/17 07/21/17 07/21/17 07:06 11:09 12:07 POC Glucose (mg/dL) 58 L 65 58 L 07/21/17 13:14 POC Glucose (mg/dL) 117 H Assessment & Plan - Assessment and Plan (Free Text) Assessment: 52 y/o male with 1) left foot sub met 1 diabetic ulceration and 2) bilateral posterior heel fissures secondary to diabetes with autonomic neuropathy Plan: Pt seen and evaluated at bedside with attending Dr. Quevedo Labs and vitals reviewed- afebrile, WBC 6.7 Aseptic excisional debridement of hyperkeratotic lesion to L foot with sterile 15 blade, revealing underlying ulceration Pt tolerated procedure without incident Wound culture taken of purulent drainage from L foot ulcer Pt currently not on abx therapy - recommend empiric therapy at this time prior to culture results ID consult placed L foot dressed with xeroform DSD; bilateral heels dressed with Optifoam bandages Rx Iodosorb to be applied to ulcer site; rx Bactroban for heels L foot x-ray ordered, pending Recommend Will continue to follow patient while in house <Adria Quevedo - Last Filed: 07/21/17 15:40> Meds - Medications Medications: Current Medications Acetaminophen (Tylenol 325mg Tab) 650 mg PO Q6H PRN PRN Reason: pain Albuterol/Ipratropium (Duoneb 3 Mg/0.5 Mg (3 Ml) Ud) 3 ml IH [id number] [facility] Last Admin: 07/21/17 13:05 Dose: 3 ml Aspirin (Ecotrin) 81 mg PO DAILY [facility] Last Admin: 07/21/17 11:35 Dose: 81 mg Atorvastatin Calcium (Lipitor) 40 mg PO DIN [facility] Cadexomer Iodine (Iodosorb) 0 gm TOP DAILY [facility] Calcium Acetate (Phoslo) 1,334 mg PO WM [facility] Last Admin: 07/21/17 12:10 Dose: 1,334 mg Docusate Sodium (Colace) 100 mg PO BID [facility] Last Admin: 07/21/17 12:45 Dose: Not Given Ergocalciferol (Drisdol 50,000 Intl Units Cap) 1 cap PO Q7D [facility] Last Admin: 07/21/17 12:45 Dose: Not Given Fenofibrate (Tricor) 145 mg PO DAILY [facility] Last Admin: 07/21/17 11:36 Dose: 145 mg Gabapentin (Neurontin) 300 mg PO DAILY [facility] PRN Reason: Protocol Last Admin: 07/21/17 11:34 Dose: 300 mg Insulin Human Regular (Humulin R Low) 0 units SC ACHS [facility] PRN Reason: Protocol Last Admin: 07/21/17 11:37 Dose: Not Given Latanoprost (Xalatan Opht) 0 ml OU HS [facility] Loratadine (Claritin) 10 mg PO DAILY [facility] Last Admin: 07/21/17 12:07 Dose: Not Given Montelukast Sodium (Singulair) 10 mg PO HS [facility] Multivitamins/Minerals (Therapeutic-M Tab) 1 tab PO DAILY [facility] Last Admin: 07/21/17 11:36 Dose: 1 tab Mupirocin (Bactroban Ointment) 0 gm TOP BID [facility] Nateglinide (Starlix) 120 mg PO ACL [facility] Last Admin: 07/21/17 11:35 Dose: 120 mg [Risacal-D Tablet] ((Home Med)) 2 tab PO TID [facility] Last Admin: 07/21/17 11:37 Dose: Not Given Diclofenac Sodium [ Voltaren Gel) Home Med 0 appl TOP DAILY [facility] Last Admin: 07/21/17 11:37 Dose: Not Given Bradley-3s/Dha/Epa/Fish Oil (Home Med) 2 cap PO BID [facility] Last Admin: 07/21/17 11:36 Dose: Not Given Advair Hfa 230-21 ((Home Med)) 1 puff IH DAILY [facility] Last Admin: 07/21/17 11:38 Dose: Not Given Pantoprazole Sodium (Protonix Ec Tab) 40 mg PO DAILY [facility] Last Admin: 07/21/17 11:36 Dose: 40 mg Pregabalin (Lyrica) 50 mg PO DAILY [facility] Last Admin: 07/21/17 12:08 Dose: Not Given Sildenafil Citrate (Revatio) 20 mg PO BID [facility] Last Admin: 07/21/17 11:35 Dose: 20 mg Sodium Chloride ([place] Nasal [place]) 0 ml NS Q2H PRN PRN Reason: Nasal congestion Tamsulosin HCl (Flomax) 0.4 mg PO DAILY [facility] Last Admin: 07/21/17 11:34 Dose: 0.4 mg Ticagrelor (Brilinta) 90 mg PO BID [facility] Last Admin: 07/21/17 11:35 Dose: 90 mg Zolpidem Tartrate (Ambien) 5 mg PO HS PRN; Protocol PRN Reason: Insomnia Results - Vital Signs Recent Vital Signs: Last Vital Signs Temp 97.8 F 07/21/17 07:00 Pulse 68 07/21/17 09:31 Resp 20 07/21/17 07:00 BP 149/65 07/21/17 07:00 Pulse Ox 99 07/21/17 07:00 - Labs Result Diagrams: 07/21/17 01:50 07/21/17 01:50 Labs: Laboratory Results - last 24 hr 07/21/17 07/21/17 07/21/17 07:06 11:09 12:07 POC Glucose (mg/dL) 58 L 65 58 L 07/21/17 13:14 POC Glucose (mg/dL) 117 H Attending/Attestation - Attestation I have personally seen and examined this patient.: Yes I have fully participated in the care of the patient.: Yes I have reviewed all pertinent clinical information: Yes
--- NOTE | 2017-07-21 14:30 | CON ---
DATE: 07/21/2017 ENDOCRINOLOGY CONSULTATION LOCATION: Room 560. HISTORY OF PRESENT ILLNESS: This is a 52-year-old male with known history of type 2 insulin-requiring diabetes, presenting here with generalized body weakness and extremes of glycemic fluctuations and also has concomitant nonhealing neuropathic foot ulcerations and is being referred now for diabetic evaluation and management. PAST MEDICAL HISTORY: As mentioned above, history of type 2 insulin-requiring diabetes, on a combination of Humulin NPH given as 80 units in the morning and 70 units at dinner time with Humulin regular insulin given as 90 units b.i.d. before meals. His glycemic levels, however, are extremely fluctuating because of the variability of his oral intake. History of hypertensive cardiovascular disease and dyslipidemia, history of diabetic retinopathy with multiple laser treatments to both eyes and history also of diabetic painful peripheral polyneuropathy with diabetic nephropathy and end-stage renal disease and dialysis dependence. History of coronary artery disease with previous coronary stent placements and peripheral arterial disease and vasculopathy. History of chronic obstructive lung disease, history of diffuse osteoarthritis as noted with low back pain and associated radiculopathy. FAMILY HISTORY: Positive for hypertension and diabetes. SOCIAL HISTORY: The patient has a supportive family. Has a prior history of smoking but quit a few years ago. No other known substance use. REVIEW OF SYSTEMS: As mentioned above, admits to generalized body weakness with episodic bouts of dizziness and lightheadedness, worse on the day of admission with associated hypoglycemic episode and the glucose level down to the 50 mg/dL. Also, admits to generalized body weakness and suboptimal energy level. Moreover, admits to occasional visual blurring with bifrontal headaches. No chest pains or palpitations but admits to episodic shortness of breath, especially on exertion. His oral intake has been variable with nausea, dyspepsia, and vague upper abdominal pains. Also, admits to habitual constipation as noted. Moreover, admits to lower extremity painful paresthesias and low back pain with radiculopathy and currently taking narcotic analgesics for pain management. He also has nonhealing neuropathic ulcers in both feet and has been followed closely by Podiatry and Vascular Surgery as noted. PHYSICAL EXAMINATION: GENERAL: This is an average built male, in no apparent distress. VITAL SIGNS: Blood pressure of 140/80, pulse of 70 beats per minute and regular, temperature 99, respirations 20. HEENT: Head normocephalic. Eyes anicteric with pale conjunctivae. Funduscopy is not possible at this time. Ears, nose, and throat otherwise normal. NECK: Supple. Thyroid gland is normal in size. No carotid bruits or cervical adenopathy. CARDIOPULMONARY: Some adynamic precordium. S1, S2 are rapid and regular LUNGS: Clear to auscultation. ABDOMEN: Flat, soft with positive bowel sounds. EXTREMITIES: No peripheral edema. Pulses are diminished peripherally and he has nonhealing neuropathic foot ulcerations in the plantar surfaces of both feet as noted. LABORATORY DATA: His chemistry showed a BUN of 57, sodium 140, potassium 4.6, chloride 98, CO2 of 26, glucose 200 with a repeat glucose of 58 mg/dL, and creatinine is 8.1. ASSESSMENT: This is a 52-year-old male with uncontrolled and decompensated type 2 insulin-requiring diabetes with extremes of glycemic fluctuations, most likely related to the variability of his oral intake and concomitant hefty insulin dose requirements with underlying increased insulin resistance thereof. He also has diabetic microvascular complications of retinopathy, polyneuropathy, and nephropathy with end-stage renal disease and dialysis dependence. He also has diabetic macrovascular complications of coronary artery disease with peripheral arterial disease and vasculopathy with nonhealing neuropathic foot ulcerations as mentioned. PLAN OF MANAGEMENT: We will continue the low-dose correction scale using regular insulin as given for now and observe his glycemic fluctuations overnight. Depending on his fasting glucose values tomorrow and the postprandial glucose fluctuations, then we will start him back on a much lower basal and bolus insulin drug combination as indicated. A hemoglobin A1c will be done to confirm his prior glycemic control and baseline thyroid function studies will be ordered. We will obtain a parathyroid hormone intact level to screen for underlying secondary hyperparathyroidism. We will obtain serial chemistries and supplement accordingly as needed. We will follow. Brittany Ramirez MD
--- NOTE | 2017-07-21 15:03 | RAD ---
PROCEDURE: Radiographs of the Left Shoulder HISTORY: Pain. No history of recent/ related trauma provided COMPARISON: No prior. FINDINGS: BONES: Normal. No fracture. JOINTS: Normal. Glenohumeral and acromioclavicular joints preserved. No osteoarthritis. SOFT TISSUES: Normal. OTHER FINDINGS: None. IMPRESSION: Normal radiographs of the left shoulder.
--- NOTE | 2017-07-21 16:15 | RAD ---
PROCEDURE: Bilateral Feet Radiographs. HISTORY: pain COMPARISON: None. FINDINGS: BONES: Right Foot: There is bony sclerosis and irregularity of the head of the 2nd metatarsal. The findings are consistent with an old fracture or chronic osteomyelitis Left Foot: There is a fracture of the distal aspect of the 2nd proximal phalanx. This appears to be acute. There is an old fracture deformity of the 5th metatarsal JOINTS: Right Foot: Normal. No osteoarthritis. Left Foot: Normal. No osteoarthritis. SOFT TISSUES: Right Foot: Normal. Left Foot: Normal. OTHER FINDINGS: None. IMPRESSION: Right Foot: There is bony sclerosis and irregularity of the head of the 2nd metatarsal. The findings are consistent with an old fracture or chronic osteomyelitis Left Foot: There is a fracture of the distal aspect of the 2nd proximal phalanx. This appears to be acute. There is an old fracture deformity of the 5th metatarsal
--- NOTE | 2017-07-21 18:55 | CARD ---
APPROVED REPORT EKG Measurement Heart [id number] <Conclusion> Electronic ventricular pacemaker
--- NOTE | 2017-07-21 20:45 | US ---
PROCEDURE: Left upper extremity venous ultrasound HISTORY: Arm pain and swelling. Evaluate for deep venous thrombosis. PHYSICIAN(S): Alfredo Wynn MD. FINDINGS: The visualized leftinternal jugular vein is dilated but otherwise normal and compressible. No evidence of obstruction or thrombus is seen. The visualized segments of the left subclavian vein are patent with normal waveforms. No sonographic evidence of obstruction or thrombosis is seen. The visualized deep venous system of the proximal leftupper extremity is sonographically normal and compressible. IMPRESSION: 1. No sonographic evidence for deep venous thrombosis in the visualized segments of the left upper extremity.
[2017-07-21] MEDS: Latanoprost 2.5 ml Opht Soln OU SCH (21:21)
[2017-07-21] MEDS ORDERED: Naproxen 550 mg Tab PO STA (22:49)
--- NOTE | 2017-07-22 01:21 | CP.PCM.PN ---
Subjective - Date & Time of Evaluation Date of Evaluation: 07/22/17 Time of Evaluation: 01:16 - Subjective Subjective: was seen at bedside. He complained of pain in left shoulder.Chronic pain. Has no other complaints. Denies chest pain , sob, nausea, sweating , palpitation. Medical record was reviewed. This 52 year old male was admitted for soreness in both feet, anxiety, tremulousness, difficulty sleeping. Has PMH of ESRD on HD,CAD, HTN, DM, coronary stent placement, anemia, bilateral cataract. Objective - Vital Signs/Intake and Output Vital Signs (last 24 hours): Temp Pulse Resp BP Pulse Ox 97.8 F 68 20 149/65 99 07/21/17 07:00 07/21/17 09:31 07/21/17 07:00 07/21/17 07:00 07/21/17 07:00 Intake and Output: 07/21/17 07/22/17 18:59 06:59 Intake Total 480 Output Total 0 Balance 480 - Medications Medications: Current Medications Acetaminophen (Tylenol 325mg Tab) 650 mg PO Q6H PRN PRN Reason: pain Last Admin: 07/21/17 20:14 Dose: 650 mg Albuterol/Ipratropium (Duoneb 3 Mg/0.5 Mg (3 Ml) Ud) 3 ml IH [id number] [facility] Last Admin: 07/21/17 21:00 Dose: 3 ml Aspirin (Ecotrin) 81 mg PO DAILY [facility] Last Admin: 07/21/17 11:35 Dose: 81 mg Atorvastatin Calcium (Lipitor) 40 mg PO DIN [facility] Last Admin: 07/21/17 18:19 Dose: Not Given Cadexomer Iodine (Iodosorb) 0 gm TOP DAILY [facility] Cadexomer Iodine (Iodosorb) 0 gm TOP DAILY [facility] Calcium Acetate (Phoslo) 1,334 mg PO WM [facility] Last Admin: 07/21/17 19:17 Dose: 1,334 mg Docusate Sodium (Colace) 100 mg PO BID [facility] Last Admin: 07/21/17 18:19 Dose: Not Given Ergocalciferol (Drisdol 50,000 Intl Units Cap) 1 cap PO Q7D [facility] Last Admin: 07/21/17 12:45 Dose: Not Given Fenofibrate (Tricor) 145 mg PO DAILY [facility] Last Admin: 07/21/17 11:36 Dose: 145 mg Insulin Human Regular (Humulin R Low) 0 units SC ACHS [facility] PRN Reason: Protocol Last Admin: 07/21/17 21:21 Dose: Not Given Latanoprost (Xalatan Opht) 0 ml OU HS [facility] Last Admin: 07/21/17 21:21 Dose: 2.5 ml Loratadine (Claritin) 10 mg PO DAILY [facility] Last Admin: 07/21/17 12:07 Dose: Not Given Montelukast Sodium (Singulair) 10 mg PO HS [facility] Last Admin: 07/21/17 21:21 Dose: 10 mg Multivitamins/Minerals (Therapeutic-M Tab) 1 tab PO DAILY [facility] Last Admin: 07/21/17 11:36 Dose: 1 tab Mupirocin (Bactroban Ointment) 0 gm TOP BID [facility] Last Admin: 07/21/17 18:19 Dose: Not Given Nateglinide (Starlix) 120 mg PO ACL [facility] Last Admin: 07/21/17 11:35 Dose: 120 mg [Risacal-D Tablet] ((Home Med)) 2 tab PO TID [facility] Last Admin: 07/21/17 18:19 Dose: Not Given Diclofenac Sodium [ Voltaren Gel) Home Med 0 appl TOP DAILY [facility] Last Admin: 07/21/17 11:37 Dose: Not Given [place]-3s/Dha/Epa/Fish Oil (Home Med) 2 cap PO BID [facility] Last Admin: 07/21/17 18:19 Dose: Not Given Advair Hfa 230-21 ((Home Med)) 1 puff IH DAILY [facility] Last Admin: 07/21/17 11:38 Dose: Not Given Pantoprazole Sodium (Protonix Ec Tab) 40 mg PO DAILY [facility] Last Admin: 07/21/17 11:36 Dose: 40 mg Pregabalin (Lyrica) 50 mg PO DAILY [facility] Last Admin: 07/21/17 12:08 Dose: Not Given Sildenafil Citrate (Revatio) 20 mg PO BID [facility] Last Admin: 07/21/17 18:20 Dose: Not Given Sodium Chloride ([place] Nasal Ocate) 0 ml NS Q2H PRN PRN Reason: Nasal congestion Tamsulosin HCl (Flomax) 0.4 mg PO DAILY [facility] Last Admin: 07/21/17 11:34 Dose: 0.4 mg Ticagrelor (Brilinta) 90 mg PO BID [facility] Last Admin: 07/21/17 18:19 Dose: Not Given Zolpidem Tartrate (Ambien) 5 mg PO HS PRN; Protocol PRN Reason: Insomnia Last Admin: 07/21/17 21:21 Dose: 5 mg - Labs Labs: Most Recent Lab Values WBC 6.7 10^3/ul (4.5-11.0) D 07/21/17 01:50 RBC 2.77 10^6/uL (3.5-6.1) L 07/21/17 01:50 Hgb 8.3 g/dL (14.0-18.0) L 07/21/17 01:50 Hct 26.5 % (42.0-52.0) L 07/21/17 01:50 MCV 95.7 fl (80.0-105.0) D 07/21/17 01:50 MCH 30.0 pg (25.0-35.0) 07/21/17 01:50 MCHC 31.3 g/dl (31.0-37.0) 07/21/17 01:50 RDW 17.0 % (11.5-14.5) H 07/21/17 01:50 Plt Count 130 10^3/uL (120.0-450.0) 07/21/17 01:50 MPV 12.5 fl (7.0-11.0) H 07/21/17 01:50 Gran % 69.1 % (50.0-68.0) H 07/21/17 01:50 Lymph % (Auto) 17.8 % (22.0-35.0) L 07/21/17 01:50 [place] % (Auto) 11.1 % (1.0-6.0) H 07/21/17 01:50 Eos % (Auto) 1.6 % (1.5-5.0) 07/21/17 01:50 Baso % (Auto) 0.4 % (0.0-3.0) 07/21/17 01:50 Gran # 4.60 (1.4-6.5) 07/21/17 01:50 Lymph # (Auto) 1.2 (1.2-3.4) 07/21/17 01:50 Darke # (Auto) 0.7 (0.1-0.6) H 07/21/17 01:50 Eos # (Auto) 0.1 (0.0-0.7) 07/21/17 01:50 Baso # (Auto) 0.03 K/mm3 (0.0-2.0) 07/21/17 01:50 Sodium 140 mmol/L (132-148) 07/21/17 01:50 Potassium 4.6 mmol/L (3.6-5.0) 07/21/17 01:50 Chloride 98 mmol/L (98-107) 07/21/17 01:50 Carbon Dioxide 26 mmol/L (21-33) 07/21/17 01:50 Anion Gap 21 (10-20) H 07/21/17 01:50 BUN 57 mg/dL (7-21) H 07/21/17 01:50 Creatinine 8.1 mg/dl (0.8-1.5) H* 07/21/17 01:50 Est GFR ( Amer) 8 07/21/17 01:50 Est GFR (Non-Af Amer) 7 07/21/17 01:50 POC Glucose (mg/dL) 144 mg/dL (65-110) H 07/21/17 21:13 Random Glucose 200 mg/dL (70-110) H 07/21/17 01:50 Calcium 7.5 mg/dL (8.4-10.5) L 07/21/17 01:50 Total Bilirubin 0.6 mg/dL (0.2-1.3) 07/21/17 01:50 AST 67 U/L (17-59) H D 07/21/17 01:50 ALT 54 U/L (7-56) 07/21/17 01:50 Alkaline Phosphatase 74 U/L (38-126) 07/21/17 01:50 Total Protein 7.6 g/dL (5.8-8.3) 07/21/17 01:50 Albumin 3.9 g/dL (3.0-4.8) 07/21/17 01:50 Globulin 3.7 gm/dL 07/21/17 01:50 Albumin/Globulin Ratio 1.1 (1.1-1.8) 07/21/17 01:50 - Constitutional Appears: Well, No Acute Distress - Head Exam Head Exam: ATRAUMATIC, NORMAL INSPECTION, NORMOCEPHALIC - Eye Exam Eye Exam: Normal appearance - ENT Exam ENT Exam: Normal External Ear Exam - Neck Exam Neck Exam: Normal Inspection - Respiratory Exam Respiratory Exam: NORMAL BREATHING PATTERN - Cardiovascular Exam Cardiovascular Exam: absent: JVD - GI/Abdominal Exam GI & Abdominal Exam: absent: Distended - Rectal Exam Rectal Exam: Deferred - Exam Additional comments: Deferred. - Extremities Exam Extremities Exam: Normal Inspection - Back Exam Back Exam: NORMAL INSPECTION - Neurological Exam Neurological Exam: Alert, Awake, Oriented x3 - Psychiatric Exam Psychiatric exam: Normal Affect, Normal Mood - Skin Skin Exam: Normal Color Assessment and Plan - Assessment and Plan (Free Text) Assessment: Left shoulder pain-muscular. ESRD on HD. Anemia. CAD. HTN. DM. Plan: Naprosyn 550 mg PO x 1. Later on, Ultram 50 mg PO was ordered. Continue management as per PMD.
[2017-07-22] MEDS: Albuterol-Ipratrop 3 mg / 0.5 (3 ml) UD IH SCH ×4 (02:15→19:59)
--- NOTE | 2017-07-22 05:24 | CON ---
DATE: 07/21/2017 PULMONARY CONSULT REFERRING PHYSICIAN: Diana Kessler MD. REASON FOR CONSULT: Chronic obstructive lung disease; obstructive sleep apnea syndrome. Recently, he had a cardiac arrhythmia, requiring pacemaker. HISTORY OF PRESENT ILLNESS: This is a 52-year-old gentleman who recently had cardiac arrhythmia, requiring resuscitation and intubation, currently got a pacemaker, was doing well, was sent home, now readmitted, complaining about open sores on the both feet, anxious, very sleepy and tired. Apparently, patient supposed to be on CPAP, but he remained became noncompliant and was taken away. No hemoptysis, no hematemesis, no hematuria, no diarrhea reported. Past medical history, coronary artery disease; history of coronary stent; cardiac arrhythmia, requiring pacemaker; renal failure, on dialysis; diabetes; hypertension; chronic obstructive lung disease; obstructive sleep apnea syndrome; peripheral vascular disease with peripheral neuropathy. Seen patient in ultrasound, was very sleepy; going for dialysis. PAST MEDICAL HISTORY: As per history of present illness. ALLERGIES: ALLERGY TO CERTAIN INSULINS, MOXIFLOXACIN, ALSO ALLERGIC TO PENICILLIN. FAMILY HISTORY: Positive for hypertension and diabetes. MEDICATIONS: He is on home med Risacal-D 3 times a day, also on Advair HFA one puff daily, Ambien 5 mg at bedtime p.r.n., Bactroban ointment to affected area, Brilinta 90 mg twice a day, Claritin 10 mg daily, Colace 100 mg twice a day, Voltaren Gel to affected area, vitamin D 50,000 units weekly, DuoNeb every 6 hour, also on Ecotrin 81 mg daily, Flomax 0.4 mg daily, insulin coverage, , also on Lipitor 20 mg daily, Lyrica 50 mg daily, Neurontin 300 mg daily, on [place]-3 two capsules twice a day, PhosLo with the meal, Protonix 40 mg daily, Revatio 20 mg twice a day, Singulair 10 mg daily, Starlix 120 mg daily, multivitamins daily, TriCor 145 mg daily, and Tylenol p.r.n. REVIEW OF SYSTEMS: No headache. No rhinitis. Sleepy, arousable, and goes back to sleep. No chest pain. Short of breath with exertion. No chest pain. No nausea. No vomiting. No diarrhea. Has bilateral heel ulcers. Neurological, very sleepy, arousable, does follow simple command. LABORATORY DATA: Showed hemoglobin 8.3, hematocrit 26.5, WBC 6.7, platelet is 130. Sodium 140, potassium 4.6, chloride 98, bicarbonate 26, BUN 57, creatinine 8.1, glucose 117, calcium is 7.5. Total bili 0.6, AST 67, ALT 54, alk phos is 74, albumin 3.9. Has a chest x-ray done in the ER, which shows no active pulmonary disease. IMPRESSION AND PLAN: Severe peripheral vascular disease with ulcer on the both heels, which is new, open with dressing. Other issues are chronic obstructive lung disease; obstructive sleep apnea syndrome; cardiac arrhythmia, requiring pacemaker; pulmonary hypertension; diabetes; renal failure, dialysis dependent; noncompliant with the continuous positive airway pressure to cause loss of the continuous positive airway pressure. Patient is seen by Podiatry. Will cut down some of the sedation, place patient on continuous positive airway pressure 7 cm while sleeping. Keep head at 45 degrees. Gastric prophylaxis. Deep vein thrombosis prophylaxis. May need arterial Doppler of lower extremities. Thank you and we will follow with you. Jarred Escalera MD
[2017-07-22 07:26] LABS: HEMOGLOBIN 8.2 g/dL (14.0-18.0); MEAN CORPUSCULAR HEMOGLOBIN 29.9 pg (25.0-35.0); MEAN CORPUSCULAR HGB CONC 31.2 g/dl (31.0-37.0); MEAN PLATELET VOLUME 12.1 fl (7.0-11.0); RBC 2.74 10^6/uL (3.5-6.1); RED CELL DISTRIBUTION WIDTH 17.3 % (11.5-14.5); WHITE BLOOD COUNT 5.4 10^3/ul (4.5-11.0)
[2017-07-22 07:41] LABS: ALBUMIN 3.6 g/dL (3.0-4.8); ALT/SGPT 47 U/L (7-56); AST/SGOT 59 U/L (17-59); BLOOD UREA NITROGEN 40 mg/dL (7-21); CALCIUM 8.2 mg/dL (8.4-10.5); GFR AFRICAN-AMERICAN 12; GFR NON-AFRICAN AMERICAN 10; HDL CHOLESTEROL 29 mg/dL (29-60)
[2017-07-22 07:57] LABS: LDL CHOLESTEROL < 30 mg/dL (0-129)
[2017-07-22] MEDS: Insulin Reg-LOW-Coverage SC SCH ×4 (08:15→21:44)
[2017-07-22] MEDS: Multivitamin With Minerals Tab PO SCH (09:36)
[2017-07-22] MEDS: Pantoprazole 40 mg EC Tab PO SCH (09:36)
[2017-07-22] MEDS: Sildenafil 20 MG TAB PO SCH ×2 (09:36→17:08)
[2017-07-22] MEDS: DICLOFENAC SODIUM TOP SCH (09:37)
[2017-07-22] MEDS: [UNRECOGNIZED DRUG - OTHER] PO SCH ×3 (09:37→18:15)
[2017-07-22] MEDS: DHA PO SCH ×2 (09:39→17:08)
[2017-07-22] MEDS: EPA PO SCH ×2 (09:39→17:08)
[2017-07-22] MEDS: OMEGA PO SCH ×2 (09:39→17:08)
[2017-07-22] MEDS: FISH OIL PO SCH ×2 (09:39→17:08)
[2017-07-22] MEDS: ADVAIR IH SCH (09:40)
[2017-07-22] MEDS ORDERED: CADEXOMER IODINE 0.9% GEL 10G TOP SCH (10:00)
[2017-07-22] MEDS: CADEXOMER IODINE 0.9% GEL 10G TOP SCH (10:21)
--- NOTE | 2017-07-22 11:31 | PN ---
DATE: 07/22/2017 SUBJECTIVE: The patient is currently seen on 5R. He is sitting in a chair. He states the discomfort and pain in his right foot is significantly improved post debridement. He had an uneventful dialysis yesterday. He is currently receiving no antibiotic therapy, pending cultures. He states he would like to go home over the weekend. MEDICATIONS: Medication list reviewed. The patient is currently on Advair, Ambien, Bactroban, Brilinta, Claritin, Colace, Voltaren gel, vitamin D, DuoNeb, Ecotrin, Flomax, insulin, Iodosorb, Lipitor, Lyrica, [place] nasal spray, PhosLo, fish oil, Protonix, Revatio, Singulair, Starlix, therapeutic M vitamin tabs, TriCor, Tylenol p.r.n., Xalatan ophthalmic ointment and Risacal-D. OBJECTIVE: INTAKE/OUTPUT: Intake 600, output hemodialysis. VITAL SIGNS: Blood pressure 143/59, temperature 97.9, respiratory rate is 20 with a pulse of 62. HEENT: Shows him to be normocephalic, atraumatic. Conjunctivae are pale. Sclerae are nonicteric. NECK: Supple. No neck vein distention. CHEST: Clear to auscultation and percussion. No rales, rhonchi or wheezing. CARDIOVASCULAR: Shows a permanent pacemaker, /AI/MR/TR. No S3, no S4. No rub. ABDOMEN: Soft. Bowel sounds normal. Mild obesity. EXTREMITIES: Left upper extremity AV fistula. Positive thrill. Positive bruit. Right foot has dressing on. Debridement of wound not examined. No lower extremity cyanosis, clubbing or edema noted. LABORATORY DATA AND IMAGING STUDIES: CBC: White blood cell count today 5.4, hemoglobin 8.2 with a platelet count of 92,000. Chemistries from today, electrolytes are normal. BUN 40 with a creatinine of 6. Glucose is 192. Calcium is 8.2. Liver enzymes are normal. Albumin is 3.6. Microbiology: All cultures are pending. ASSESSMENT: 1. Right foot diabetic ulcer, status post debridement with likely chronic osteomyelitis of the right foot. The patient is awaiting culture results and awaiting Infectious Disease input in terms of requiring antibiotic therapy. 2. History of end-stage renal disease. The patient will continue routine dialysis Monday, Monday, Monday. He is transferred over to the hospital dialysis unit. 3. History of atherosclerotic heart disease, status post percutaneous transluminal coronary angioplasty and stents; history of symptomatic bradycardia with near cardiac arrest, status post permanent pacemaker. 4. History of pulmonary hypertension, on medical therapy. 5. History of valvular heart disease, aortic stenosis, aortic insufficiency, mitral regurgitation, tricuspid regurgitation, all stable. 6. History of anemia secondary to chronic kidney disease. The patient will continue maximum dose of Aranesp and receive iron with dialysis. 7. History of [id number] diabetes mellitus. The patient is currently on insulin. Sugar levels are acceptable. 8. History of secondary hyperparathyroidism. Phosphorus level was not checked during present admission. The patient will continue binder therapy. He should stay on a renal diet. PLAN: 1. Await clearance from ID and from Podiatry prior to potential discharge over the weekend. Unclear whether or not the patient will require any antibiotic therapy. Cultures are pending. 2. Continue Monday, Monday, Monday dialysis. 3. Continue renal diet and binder therapy. 4. Continue present medications without change. Toy Martinez MD
--- NOTE | 2017-07-22 12:19 | PN ---
DATE: 07/22/2017 SUBJECTIVE: A 52-year-old uncontrolled diabetic male seen at bedside for continued evaluation and management of a diabetic left foot ulceration as well as painful full-thickness heel fissuring bilaterally. The patient states that his pain has decreased considerably in his feet since admission. He remains afebrile. The patient's vital signs revealed temperature of 97.9, pulse rate of 62, blood pressure of 143/59, respiratory rate of 20. Laboratory findings reveal white count of 5.4, hemoglobin of 8.2, hematocrit of 26.3, platelet count of 92. X-rays taken of both feet reveal presence of an old fracture at the second metatarsal head on the right foot as well as left foot x-rays reveal an acute chip fracture of the second proximal phalanx. OBJECTIVE: Palpable pedal pulses noted bilaterally. Capillary filling time is within normal limits x10. There is noted to be no lower extremity or pedal edema. Temperature gradient is within normal limits. There is a superficial ulceration located on the left foot submetatarsal area 1 that measures approximately 1.5 cm x 1.2 cm x 0.2 cm after debridement today. There is noted to be no purulent discharge. There is no edema. The wound does not probe to tendon or bone. There is no underlying abscess formation noted. No localized or ascending cellulitis. Both bilateral posterior plantar heels present with full-thickness skin fissuring with much less pain upon palpation yesterday. There is no drainage. There is no purulence. There are no signs of infection at these locations. The patient is unable to detect sharp-dull sensation bilaterally. ASSESSMENT: A 52-year-old male with superficial diabetic ulceration of left submetatarsal 1. No bacterial infection noted and painful bilateral heel fissuring. There is an incidental finding of acute chip fracture of the right second toe. PLAN: The patient was examined. All hyperkeratotic tissue and nonviable tissue present at the left submet 1 area was excisionally debrided using a 15 blade scalpel. The underlying region shows healthy granulation tissue with no abscess formation or probing to bone. The area was flushed with normal sterile saline. We will apply Iodosorb cream today to eradicate any superficial bacterial colonization and then apply Bactroban ointment with a dry sterile dressing daily. Both heels were cleansed with sterile saline and covered with Bactroban and Optifoam. The patient's right second toe presents with no edema, no erythema, no pain upon palpation. We will allow the chip fracture to resolve without any intervention at this time. We are waiting foam Multi Podus boots to be applied to both feet to offload both heels. The patient will be seen and followed daily. Adria Quevedo DPM
[2017-07-22] MEDS: Lidocaine 5% Patch TD SCH (12:40)
[2017-07-22] MEDS ORDERED: Insulin Regular 1 UNITS/0.01 ML ML SC SCH (16:30)
[2017-07-22] MEDS: Latanoprost 2.5 ml Opht Soln OU SCH (21:45)
[2017-07-22] MEDS ORDERED: Insulin Human NPH 1 UNITS/0.01 ML SC SCH ×2 (22:00)
--- NOTE | 2017-07-22 23:53 | CON ---
DATE: 07/22/2017 LOCATION: Patient seen earlier this morning in room 560, bed 2. CHIEF COMPLAINT: Foot infection times several days. HISTORY OF PRESENT ILLNESS: This is a 52-year-old male with obesity with BMI of 32 with a history of coronary artery disease;end-stage renal disease, on hemodialysis on Monday, Monday, Monday. Patient with diabetes mellitus, hypertension, cardiac cath and with stent placement. He is admitted because of a foot infection, bilateral heel ulcers and foot ulcers. REVIEW OF SYSTEMS: Revealed the patient has no fever and no chills. No nausea and no abdominal pain. No diarrhea or constipation. A 12-point review of system is performed. PAST MEDICAL HISTORY: Significant for chronic renal failure, on hemodialysis; coronary artery disease; obesity, BMI of 32; hypertension; pancreatitis; retinopathy; kidney stones; asthma; neuropathy in addition to the diabetes and hypertension. PAST SURGICAL HISTORY: Significant for cardiac catheterization, stent placement, cholecystectomy, left corneal transplant, left arm fistula. ALLERGIES: PATIENT IS ALLERGIC TO MOXIFLOXACIN, PENICILLIN, AND ALLERGIC TO INSULIN. PHYSICAL EXAMINATION: VITAL SIGNS: Patient is in bed with the temperature of 98, blood pressure is 140/50, respiratory rate of 20, heart rate of 68. HEENT: Unremarkable. NECK: Supple. LUNGS: Have decreased breath sounds. HEART: Normal S1 and S2. ABDOMEN: Soft and nontender. EXTREMITIES: Examination of bilateral heels, ulcers present. Patient also has left foot ulceration and to the bilateral heel ulcerations. LABORATORY DATA: Patient had an ultrasound, no evidence of DVT. ASSESSMENT AND PLAN: This is a 52-year-old male with diabetes; hypertension; coronary artery disease; history of pancreatitis; end-stage renal disease, on hemodialysis Monday, Monday, and Monday; retinopathy; kidney stones; asthma; neuropathy; presenting with bilateral heel ulcers and right heel ulcer with a left foot ulcer and no evidence of cellulitis. At this point, patient is afebrile. No white count. I will continue with local wound care and discuss with Podiatry and should also have Vascular regarding blood supply and antibiotics at this point. Pending initial workup results. We will follow closely with you. Jaspreet Forbes MD [facility] # [id number]
--- NOTE | 2017-07-23 00:19 | PN ---
DATE: 07/22/2017 PULMONARY PROGRESS NOTE REFERRING PHYSICIAN: Diana Kessler MD SUBJECTIVE: He is sitting side of the bed, having lunch. Mother is bedside. Night was unremarkable, tolerated CPAP well. No headache, rhinitis, and cough. No nausea, vomiting, or diarrhea. Seen by Podiatry, has a wound debridement done presently and some mild aching. OBJECTIVE: GENERAL: In acute distress. VITAL SIGNS: Temperature is 98, heart rate 62, respiratory rate is 20, blood pressure 143/59, pulse ox 100% on room air. HEENT: Moist mucous membranes. Crowded airway. Mallampati score is 4. NECK: Supple. No JVD. LUNGS: Fair airflow with few rhonchi. HEART: S1 and S2. ABDOMEN: Soft, nontender. No organomegaly. Extremities: Dressing of the left foot with some bleeding. NEUROLOGIC: Awake, alert, and follows simple command. MEDICATIONS: He is on Advair 230/21 one puff daily, Ambien 5 mg at bedtime p.r.n. for insomnia, Brilinta 90 mg twice a day, Claritin 10 mg daily, Colace 100 mg twice a day, Voltaren gel to affected area daily, vitamin D 50,000 units every 7 days, DuoNeb every 6 hours, also on Ecotrin 81 mg daily, Flomax 0.4 mg daily, insulin coverage. He is on Lidoderm patch at affected area, Lipitor 40 mg daily, Lyrica 50 mg daily, omega-3, vitamin 2 g twice a day, Protonix 40 mg daily, Revatio 20 mg twice a day, Singulair 10 mg daily, Starlix 120 mg acL , multivitamins daily, Tricor 145 mg daily, Tylenol p.r.n. LABORATORY DATA: Shows hemoglobin 8.2, hematocrit 26.3, WBC 5.4, platelets 92. Sodium 140, potassium 4.2, chloride 96, bicarbonate 31. BUN 40, creatinine 6. Glucose 192. Calcium 8.2. AST 59, ALT 47, alk phos is 54. Albumin 3.6, triglyceride 68, cholesterol 70. TSH 4. Left foot wound culture is done, report is pending. IMPRESSION AND PLAN: Severe peripheral vascular disease with a left foot wound requiring debridement, chronic obstructive lung disease, obstructive sleep apnea syndrome, cardiac arrhythmia requiring pacemaker, pulmonary hypertension, diabetes, renal failure dialysis dependent, lost CPAP. Pulmonary point of view, continue CPAP while sleeping. Keep head at 45 degrees. Bronchodilator, gastric prophylaxis, DVT prophylaxis. Being followed by Endocrinology. The patient is advised to elevate left foot over the pillow. Being followed by Podiatry. Thank you and we will follow with you. Jarred Escalera MD
[2017-07-23] MEDS: Albuterol-Ipratrop 3 mg / 0.5 (3 ml) UD IH SCH ×4 (01:12→20:06)
--- NOTE | 2017-07-23 04:44 | PN ---
DATE: 07/22/2017 SUBJECTIVE: The patient is 52-year-old male. Patient seen and examined on the bedside on 07/22/2017, still having shortness of breath. Foot is bleeding. Sugar is going up and down. Blood pressure is going up and down. Complaining about left shoulder pain. X-rays done, but had limited movement, seen by the house physician, Dr. Fajardo, he gave naproxen and tramadol. No fever. No chills. No hematuria. No hematochezia. PHYSICAL EXAMINATION: VITAL SIGNS: Temperature 98.1, blood pressure 140/50, respiratory rate 20, pulse oximetry of . HEENT: Head normocephalic, atraumatic. Eyes, PERRLA. Extraocular muscles intact. Conjunctivae clear. Nose patent. Mucous membrane moist. NECK: Supple. No carotid bruit. No JVD or thyromegaly. CHEST: Bilaterally symmetrical. HEART: S1 and S2 positive. LUNGS: Clear to auscultation. ABDOMEN: Soft. Bowel sounds present. No organomegaly. EXTREMITIES: No edema. No cyanosis. Both feet have heel ulcers and have dressing on that. NEUROLOGIC: Patient is awake and alert. Moving all four extremities. No focal deficit. Cranial nerves II through XII are grossly intact. MEDICATIONS: Advair, Ambien, Bactroban ointment, Brilinta, Claritin, Colace, Diclofan gel, vitamin D, DuoNeb, Ecotrin, Flomax, insulin, isosorbide, Lidoderm and Lipitor. LABORATORY DATA: White blood cell is 5.4, hemoglobin 8.2, hematocrit 26.3, platelets 92; glucose 305, 445, 371, 438, 269. Sodium 140, potassium 4.2, BUN 40, creatinine 6, glucose 192 and calcium 8.2. ASSESSMENT AND PLAN: Mr. Jason Berger is a 52-year-old male with anemia; renal insufficiency, getting hemodialysis 3 times a week; insulin-dependent diabetes mellitus, sugar is very unstable going up and down, that is why we called Endocrinology consult with Dr. Brittany Ramirez. Even when patient was at home, visiting nurse was calling me sometimes sugar is in just 40, other times it is 400, needed re-adjustment of insulin; hypertension, his blood pressure is ranging up and down. Dr. Eva Malcolm's consult called to control the blood pressure. Seen by Infectious Disease, Dr. Forbes, has cellulitis of the feet. History of coronary artery disease, pancreatitis, diabetic nephropathy, diabetic neuropathy, diabetic retinopathy; has bilateral heel ulcers, right heel ulcer with left foot ulcer and no evidence of cellulitis. Patient is afebrile. No white blood cell. So, patient needs local wound care as per Dr. Forbes and Podiatry is on the case. Seen by Dr. Quevedo and receivables specialist. Pain in the left shoulder, range of motion decreased. Actually, he has fall at home after that he started pain. X-rays showed normal radiographic of the left shoulder. Order MRI of the shoulder. Upper extremity Doppler is done. X-ray of the feet and chest x-ray done. No sonographic evidence of deep vein thrombosis in the visualized segment of the left upper extremity. Gastrointestinal and deep vein thrombosis. Repeat labs. Pain management given. We will follow. Diana Kessler MD [facility]ardo
[2017-07-23] MEDS: Insulin Reg-LOW-Coverage SC SCH ×3 (08:15→21:03)
--- NOTE | 2017-07-23 10:27 | PN ---
DATE: 07/23/2017 SUBJECTIVE: The patient is in bed, in no acute distress, nontoxic. PHYSICAL EXAMINATION: VITAL SIGNS: Temperature is 98, blood pressure is 160/60, respiratory rate of 20, heart rate of 74. HEENT: Examination of HEENT is unremarkable. NECK: Supple. LUNGS: Have decreased breath sounds. HEART: Normal S1, S2. ABDOMEN: Soft. EXTREMITIES: Examination of the feet is unchanged. LABORATORY DATA: Laboratory examination reveals a white count of 5.4, hemoglobin of 8. Chemistries reveals a BUN of 40, creatinine is 6. Microbiology reveals the foot culture is pending. ASSESSMENT AND PLAN: A 52-year-old male who was seen earlier today in [facility], bed 2 with end-stage renal disease, on hemodialysis on Monday, Monday, Fridays. The patient with diabetes mellitus, hypertension, history of cardiac catheterization with stent placement, who is admitted now with #1 is left second toe and left foot ulcer and bilateral heel ulcers. Currently, no systemic evidence of infection and no white count, no fevers, no tachycardia. The patient is currently off of antibiotics. We will check on the MRI of the shoulder. We will check on the foot cultures and must rule out underlying osteomyelitis of the foot, bilateral heels. We will discuss with Podiatry. Jaspreet Forbes MD
[2017-07-23] MEDS: CADEXOMER IODINE 0.9% GEL 10G TOP SCH (11:31)
[2017-07-23] MEDS: Multivitamin With Minerals Tab PO SCH (11:35)
[2017-07-23] MEDS: Sildenafil 20 MG TAB PO SCH ×2 (11:36→17:54)
[2017-07-23] MEDS: Pantoprazole 40 mg EC Tab PO SCH (11:36)
[2017-07-23] MEDS: [UNRECOGNIZED DRUG - OTHER] PO SCH ×3 (11:37→18:57)
[2017-07-23] MEDS: Lidocaine 5% Patch TD SCH (11:38)
[2017-07-23] MEDS: DICLOFENAC SODIUM TOP SCH (11:38)
[2017-07-23] MEDS: OMEGA PO SCH ×2 (11:39→18:27)
[2017-07-23] MEDS: DHA PO SCH ×2 (11:39→18:27)
[2017-07-23] MEDS: EPA PO SCH ×2 (11:39→18:27)
[2017-07-23] MEDS: FISH OIL PO SCH ×2 (11:39→18:27)
[2017-07-23] MEDS: ADVAIR IH SCH (11:40)
--- NOTE | 2017-07-23 12:00 | CP.PCM.PN ---
Subjective - Date & Time of Evaluation Date of Evaluation: 07/23/17 Time of Evaluation: 11:56 - Subjective Subjective: 52M seen at bedside this morning for left first submetatarsal head ulceration and b/l heel fissures. Patient is AAO x 3 and NAD. He denies any acute overnight events. States that he has no pain. Admits to taking off dressings this morning and walking around in his slippers. Denies any recent N/V/F/C/CP/ SOB/D/posterior calf pain when squeezed Objective - Vital Signs/Intake and Output Vital Signs (last 24 hours): Temp Pulse Resp BP Pulse Ox 98.2 F 74 20 166/59 H 100 07/23/17 07:40 07/23/17 07:40 07/23/17 07:40 07/23/17 07:40 07/23/17 07:40 Intake and Output: 07/23/17 07/23/17 06:59 18:59 Intake Total 600 Balance 600 - Medications Medications: Current Medications Acetaminophen (Tylenol 325mg Tab) 650 mg PO Q6H PRN PRN Reason: pain Last Admin: 07/21/17 20:14 Dose: 650 mg Albuterol/Ipratropium (Duoneb 3 Mg/0.5 Mg (3 Ml) Ud) 3 ml IH [id number] [facility] Last Admin: 07/23/17 06:59 Dose: 3 ml Aspirin (Ecotrin) 81 mg PO DAILY [facility] Last Admin: 07/23/17 11:35 Dose: 81 mg Atorvastatin Calcium (Lipitor) 40 mg PO DIN [facility] Last Admin: 07/22/17 17:08 Dose: 40 mg Cadexomer Iodine (Iodosorb) 0 gm TOP DAILY [facility] Last Admin: 07/23/17 11:31 Dose: 10 gm Calcium Acetate (Phoslo) 1,334 mg PO WM [facility] Last Admin: 07/23/17 08:36 Dose: 1,334 mg Docusate Sodium (Colace) 100 mg PO BID [facility] Last Admin: 07/23/17 11:37 Dose: Not Given Ergocalciferol (Drisdol 50,000 Intl Units Cap) 1 cap PO Q7D [facility] Last Admin: 07/21/17 12:45 Dose: Not Given Fenofibrate (Tricor) 145 mg PO DAILY [facility] Last Admin: 07/23/17 11:36 Dose: 145 mg Insulin Human NPH (Humulin N) 30 units SC HS [facility] Last Admin: 07/22/17 21:44 Dose: 30 units Insulin Human Regular (Humulin R Low) 0 units SC ACHS [facility] PRN Reason: Protocol Last Admin: 07/22/17 21:44 Dose: Not Given Insulin Human Regular (Humulin R) 12 units SC AC CARLOS Latanoprost (Xalatan Opht) 0 ml OU HS [facility] Last Admin: 07/22/17 21:45 Dose: 2.5 ml Lidocaine (Lidoderm) 1 ea TD DAILY [facility] Last Admin: 07/23/17 11:38 Dose: 1 ea Loratadine (Claritin) 10 mg PO DAILY [facility] Last Admin: 07/23/17 11:37 Dose: 10 mg Montelukast Sodium (Singulair) 10 mg PO HS [facility] Last Admin: 07/22/17 21:45 Dose: 10 mg Multivitamins/Minerals (Therapeutic-M Tab) 1 tab PO DAILY [facility] Last Admin: 07/23/17 11:35 Dose: 1 tab Mupirocin (Bactroban Ointment) 0 gm TOP BID [facility] Last Admin: 07/23/17 11:35 Dose: 1 appful Nateglinide (Starlix) 120 mg PO ACL [facility] Last Admin: 07/23/17 11:34 Dose: 120 mg [Risacal-D Tablet] ((Home Med)) 2 tab PO TID [facility] Last Admin: 07/23/17 11:37 Dose: Not Given Diclofenac Sodium [ Voltaren Gel) Home Med 0 appl TOP DAILY [facility] Last Admin: 07/23/17 11:38 Dose: Not Given [place]-3s/Dha/Epa/Fish Oil (Home Med) 2 cap PO BID [facility] Last Admin: 07/23/17 11:39 Dose: Not Given Advair Hfa 230-21 ((Home Med)) 1 puff IH DAILY [facility] Last Admin: 07/23/17 11:40 Dose: Not Given Pantoprazole Sodium (Protonix Ec Tab) 40 mg PO DAILY [facility] Last Admin: 07/23/17 11:36 Dose: 40 mg Pregabalin (Lyrica) 50 mg PO DAILY [facility] Last Admin: 07/22/17 09:36 Dose: 50 mg Sildenafil Citrate (Revatio) 20 mg PO BID [facility] Last Admin: 07/23/17 11:36 Dose: 20 mg Sodium Chloride ([place] Nasal [place]) 0 ml NS Q2H PRN PRN Reason: Nasal congestion Last Admin: 07/23/17 11:32 Dose: 2 spr Tamsulosin HCl (Flomax) 0.4 mg PO DAILY [facility] Last Admin: 07/23/17 11:35 Dose: 0.4 mg Ticagrelor (Brilinta) 90 mg PO BID [facility] Last Admin: 07/23/17 11:36 Dose: 90 mg Zolpidem Tartrate (Ambien) 5 mg PO HS PRN; Protocol PRN Reason: Insomnia Last Admin: 07/22/17 21:44 Dose: 5 mg - Constitutional Appears: Well, Non-toxic, No Acute Distress - Head Exam Head Exam: ATRAUMATIC, NORMOCEPHALIC - Respiratory Exam Respiratory Exam: NORMAL BREATHING PATTERN. absent: Respiratory Distress - Extremities Exam Additional comments: Lower extremity focused exam: Vasc: DP/PT pulses palpable 2/4. CFT < 3 sec to all digits. No pedal edema noted. Temperature gradient warm to cool Derm: Open ulceration measuring approx 0.5cm x 0.3cm x 0.1cm noted to level of plantar first metatarsal head. No malodor, no uriel-wound erythema, no fluctuance , no drainage, no tunneling, no probe to bone or undermining. Linear skin fissures noted to bilateral posterior heels, right worse than left. R heel fissure exhibits black eschar tissue at roof of fissure. No fluctuance, no malodor, no drainage, no other clinical signs of infection noted. Neuro: Protective sensation grossly diminished upon assessment Ortho: Mild tenderness to palpation of sub met 1 hyperkeratosis and bilateral posterior heels at fissure sites - Neurological Exam Neurological Exam: Alert, Awake, Oriented x3 - Psychiatric Exam Psychiatric exam: Normal Affect, Normal Mood Assessment and Plan - Assessment and Plan (Free Text) Assessment: 52 y/o male with 1) left foot sub met 1 diabetic ulceration and 2) bilateral posterior heel fissures secondary to diabetes with neuropathy 3) Displaced fracture distal aspect of left second proximal phalanx Plan: Patient seen and evaluated Plan discussed with attending Charts, labs vitals reviewed Afebrile, absent leukocytosis Wound cx left foot ulcer - GP cocci Xray: Acute, displaced fracture of left distal second digit proximal phalanx ID consult placed 07/21 - Dr. Forbes PT order placed for crutch training Plantar ulcer dressed with Bactroban, ABD, DSD Heel fissures dressed with Bactroban, optifoam Patient encouraged to keep dressings on at all times Patient advised to avoid WB to left foot because of his fracture No plan for surgical intervention at this time Podiatry will continue to follow while patient in house
--- NOTE | 2017-07-23 12:24 | CT ---
PROCEDURE: CT of the left shoulder without contrast HISTORY: Left shoulder pain COMPARISON: TECHNIQUE: Radiation dose: Total exam DLP = 310 mGy-cm. This CT exam was performed using one or more of the following dose reduction techniques: Automated exposure control, adjustment of the mA and/or kV according to patient size, and/or use of iterative reconstruction technique. FINDINGS: There is no evidence of fracture or dislocation. There is no evidence of joint effusion or soft tissue abnormality. There is a small well-circumscribed cyst adjacent to the articular surface in the acromion. This is of doubtful significance. IMPRESSION: Negative study
[2017-07-23] MEDS ORDERED: Insulin Regular 1 UNITS/0.01 ML ML SC SCH (16:30)
[2017-07-23] MEDS: Insulin Regular 1 UNITS/0.01 ML ML SC SCH (17:52)
--- NOTE | 2017-07-23 18:15 | PN ---
DATE: 07/23/2017 PULMONARY PROGRESS NOTE REFERRING PHYSICIAN: Diana Kessler MD. SUBJECTIVE: The patient is lying in the bed, head at 45 degrees. Night was unremarkable. Tolerated CPAP well. No headache. No rhinitis. No cough. No nausea. No vomiting. No diarrhea. Left foot bleeding is better, has a dressing. OBJECTIVE: GENERAL: No acute distress. VITAL SIGNS: Temperature is 98, heart rate is 70, respiratory rate is 18, blood pressure 152/72, pulse ox 98% on room air. HEENT: Moist mucous membrane. Crowded airway. Mallampati score is 4. NECK: Short thick neck. LUNGS: Have a fair airflow with rhonchi. HEART: S1 and S2. ABDOMEN: Soft and nontender. No organomegaly. EXTREMITIES: Dressing of the left foot no more active bleeding. NEUROLOGICAL: Awake and alert. Follows simple command. LABORATORY DATA: Reviewed. Blood sugar today is 254. Foot culture has gram-positive cocci. Extremity CAT scan was done, which is negative study. MEDICATIONS: He is on Risacal-D two tab three times a day, Ambien 5 mg at bedtime p.r.n., Brilinta 90 mg twice a day, Claritin 10 mg daily, Colace 100 mg twice a day, Voltaren Gel to affected area, vitamin D 50,000 units weekly, DuoNeb every 6 hours [id number], Ecotrin 81 mg daily, Flomax 0.4 mg daily, insulin coverage, lidocaine daily to affected area, Lipitor 10 mg daily, Lyrica 50 mg at bedtime, [place]-3 two capsule twice a day, calcium phosphate with meals, Protonix 40 mg daily, Revatio 20 mg twice a day, Singulair 10 mg daily, Starlix 120 mg before lunch, multivitamins daily, TriCor 145 mg daily, Tylenol p.r.n. IMPRESSION AND PLAN: Severe peripheral vascular disease with nonhealing ulcer requiring debridement, chronic obstructive lung disease, obstructive sleep apnea syndrome, cardiac arrhythmia requiring pacemaker, pulmonary hypertension, diabetes, renal failure, dialysis dependent. Pulmonary point of view, doing okay. Continue to encourage continuous positive airway pressure use. Keep head at 45 degrees. May use Ambien p.r.n basis. Gastric prophylaxis. Deep venous thrombosis prophylaxis. Elevate lower extremity. Infectious Diseases and Podiatry followup. Thank you and we will follow with you. Jarred Escalera MD
[2017-07-23] MEDS: Latanoprost 2.5 ml Opht Soln OU SCH (21:03)
[2017-07-23] MEDS ORDERED: Insulin Human NPH 1 UNITS/0.01 ML SC SCH (22:00)
--- NOTE | 2017-07-24 01:52 | CP.PCM.PN ---
Subjective - Date & Time of Evaluation Date of Evaluation: 07/24/17 Time of Evaluation: 01:50 - Subjective Subjective: S: It was requested to order sleeping pill. Patient has no other complaints. Medical record was reviewed. Received Ambien 5 mg PO which did not help him. O: Last Vital Signs 3 Temp 98.6 F 07/23/17 14:00 Pulse 70 07/23/17 14:00 Resp 18 07/23/17 14:00 BP 152/72 H 07/23/17 14:00 Pulse Ox 98 07/23/17 14:00 Awake, alert. Not in distress. LUNGS: Normal breathing pattern. A:Adjustment insomnia. P:Ambien 5 mg PO x 1. Objective - Vital Signs/Intake and Output Vital Signs (last 24 hours): Temp Pulse Resp BP Pulse Ox 98.6 F 70 18 152/72 H 98 07/23/17 14:00 07/23/17 14:00 07/23/17 14:00 07/23/17 14:00 07/23/17 14:00 Intake and Output: 07/23/17 07/24/17 18:59 06:59 Intake Total 480 Balance 480 - Medications Medications: Current Medications Acetaminophen (Tylenol 325mg Tab) 650 mg PO Q6H PRN PRN Reason: pain Last Admin: 07/23/17 20:54 Dose: 650 mg Albuterol/Ipratropium (Duoneb 3 Mg/0.5 Mg (3 Ml) Ud) 3 ml IH [id number] [facility] Last Admin: 07/23/17 20:06 Dose: 3 ml Aspirin (Ecotrin) 81 mg PO DAILY [facility] Last Admin: 07/23/17 11:35 Dose: 81 mg Atorvastatin Calcium (Lipitor) 40 mg PO DIN [facility] Last Admin: 07/23/17 17:54 Dose: 40 mg Cadexomer Iodine (Iodosorb) 0 gm TOP DAILY [facility] Last Admin: 07/23/17 11:31 Dose: 10 gm Calcium Acetate (Phoslo) 1,334 mg PO WM [facility] Last Admin: 07/23/17 17:53 Dose: 1,334 mg Docusate Sodium (Colace) 100 mg PO BID [facility] Last Admin: 07/23/17 18:25 Dose: Not Given Ergocalciferol (Drisdol 50,000 Intl Units Cap) 1 cap PO Q7D [facility] Last Admin: 07/21/17 12:45 Dose: Not Given Fenofibrate (Tricor) 145 mg PO DAILY [facility] Last Admin: 07/23/17 11:36 Dose: 145 mg Insulin Human NPH (Humulin N) 40 units SC HS [facility] Last Admin: 07/23/17 21:02 Dose: 40 units Insulin Human Regular (Humulin R Low) 0 units SC ACHS [facility] PRN Reason: Protocol Last Admin: 07/23/17 21:03 Dose: Not Given Insulin Human Regular (Humulin R) 14 units SC AC [facility] Last Admin: 07/23/17 17:52 Dose: 14 units Latanoprost (Xalatan Opht) 0 ml OU HS [facility] Last Admin: 07/23/17 21:03 Dose: 2.5 ml Lidocaine (Lidoderm) 1 ea TD DAILY [facility] Last Admin: 07/23/17 11:38 Dose: 1 ea Loratadine (Claritin) 10 mg PO DAILY [facility] Last Admin: 07/23/17 11:37 Dose: 10 mg Montelukast Sodium (Singulair) 10 mg PO HS [facility] Last Admin: 07/23/17 21:03 Dose: 10 mg Multivitamins/Minerals (Therapeutic-M Tab) 1 tab PO DAILY [facility] Last Admin: 07/23/17 11:35 Dose: 1 tab Mupirocin (Bactroban Ointment) 0 gm TOP BID [facility] Last Admin: 07/23/17 18:25 Dose: 1 appful Nateglinide (Starlix) 120 mg PO ACL [facility] Last Admin: 07/23/17 11:34 Dose: 120 mg [Risacal-D Tablet] ((Home Med)) 2 tab PO TID [facility] Last Admin: 07/23/17 18:57 Dose: Not Given Diclofenac Sodium [ Voltaren Gel) Home Med 0 appl TOP DAILY [facility] Last Admin: 07/23/17 11:38 Dose: Not Given [place]-3s/Dha/Epa/Fish Oil (Home Med) 2 cap PO BID [facility] Last Admin: 07/23/17 18:27 Dose: Not Given Advair Hfa 230-21 ((Home Med)) 1 puff IH DAILY [facility] Last Admin: 07/23/17 11:40 Dose: Not Given Pantoprazole Sodium (Protonix Ec Tab) 40 mg PO DAILY [facility] Last Admin: 07/23/17 11:36 Dose: 40 mg Pregabalin (Lyrica) 50 mg PO HS [facility] Last Admin: 07/23/17 21:03 Dose: 50 mg Sildenafil Citrate (Revatio) 20 mg PO BID [facility] Last Admin: 07/23/17 17:54 Dose: 20 mg Sodium Chloride ([place] Nasal [place]) 0 ml NS Q2H PRN PRN Reason: Nasal congestion Last Admin: 07/23/17 17:51 Dose: 3 spr Tamsulosin HCl (Flomax) 0.4 mg PO DAILY [facility] Last Admin: 07/23/17 11:35 Dose: 0.4 mg Ticagrelor (Brilinta) 90 mg PO BID [facility] Last Admin: 07/23/17 17:54 Dose: 90 mg Zolpidem Tartrate (Ambien) 5 mg PO HS PRN; Protocol PRN Reason: Insomnia Last Admin: 07/23/17 21:03 Dose: 5 mg
[2017-07-24] MEDS: Albuterol-Ipratrop 3 mg / 0.5 (3 ml) UD IH SCH ×3 (02:16→13:11)
--- NOTE | 2017-07-24 03:42 | PN ---
DATE: 07/23/2017 SUBJECTIVE: Patient is a 52-year-old male. Patient was seen and examined at the bedside, looking comfortable. Night was better. Tolerated CPAP very well. Still bleeding from the left foot, but is better, having dressing. No fever. No chills. No headache. No dizziness. PHYSICAL EXAMINATION: VITAL SIGNS: Temperature 98, heart rate 70, respiratory rate 18, blood pressure 152/72, pulse oximetry is 98% on room air. HEENT: Head is normocephalic and atraumatic. Eyes: PERRLA. Extraocular muscles are intact. Conjunctivae are clear. Nose is patent. Mucous membrane is moist. NECK: Supple. No carotid bruit, JVD or thyromegaly. CHEST: Bilaterally symmetrical. HEART: S1 and S2 positive. LUNGS: Clear to auscultation. ABDOMEN: Soft. Bowel sounds present. No organomegaly. EXTREMITIES: Dressing on the left foot. No swelling. No cyanosis. No edema. NEUROLOGIC: Patient is awake and alert. Follow simple command. Moving all 4 extremities. LABORATORY DATA: We do not have recent labs today, but I reviewed old labs. Blood sugar is 254. Foot culture has gram-positive cocci. Left upper extremity CAT scan is negative. Cannot do MRI because of patient's pacemaker. MEDICATIONS: Ambien, Brilinta, Claritin, Colace, Voltaren gel, vitamin D, DuoNeb, Ecotrin, Flomax, insulin, Lyrica, [place]-3, Protonix, Revatio, TriCor. ASSESSMENT AND PLAN: Mr. Jason Berger is a 52-year-old male with severe peripheral vascular disease, nonhealing left heel ulcer, requiring debridement, chronic obstructive lung disease, obstructive sleep apnea syndrome; cardiac arrhythmia, requiring pacemaker, pulmonary hypertension, insulin-dependent diabetes mellitus type 2, uncontrolled; renal failure, get dialysis three times a day. Continue to encourage continuous positive airway pressure use. Gastrointestinal and deep vein thrombosis prophylaxis. Infectious Disease and Manager Fire on the case. left second toe and left foot ulcer and bilateral heel ulcers. Rule out osteomyelitis of the foot, bilateral heels. We will follow up. Diana Kessler MD [facility] # [id number] MTDRicardo
[2017-07-24 07:21] VITALS: RESP 20
--- NOTE | 2017-07-24 07:33 | HP ---
CHIEF COMPLAINT: Shortness of breath, insomnia, restless. HISTORY OF PRESENT ILLNESS: Mr. Jason Berger is a 52-year-old male with past medical history of coronary artery disease; end-stage renal disease, on hemodialysis, 3 times a week; diabetes mellitus, hypertension, cardiac catheterization and cardiac stenting, came to the emergency room complaining of open sores of both feet, cannot walk, anxiety, difficult to sleep and he is not sleeping for a couple of days. Actually, his homemaker and visiting nurse called me the other day about the same complaints and I told her to send him in my office. Now his complaints are increasing, that is why he came to the hospital. According to patient, he is feeling tremulous. He is unable to put pressure on his feet because of the sore. The patient noticed that he due dialysis tomorrow, maybe that is why he is feeling shortness of breath. No fever. No chills. No hematuria or hematochezia. No dyspnea. No nausea or vomiting. No back pain. PAST MEDICAL HISTORY: Coronary artery disease, hypertension, pacemaker with cardiac stenting, COPD, TIA; end-stage renal disease, on hemodialysis; diabetes mellitus, edema of the extremities, history of depression, cholecystectomy and coronary artery stenting. FAMILY HISTORY: Father, we do not know. Mother has history of coronary artery disease, congestive heart failure and dialysis-dependent. HABITS: Never smoking. Never drugs. No ethanol. ALLERGIES: PATIENT IS ALLERGIC WITH INSULIN, MOXIFLOXACIN, HOME MEDICATIONS: Voltaren, Starlix, vitamin D, fenofibrate, iron, Crestor, Zyrtec, insulin, Advair and hydralazine. REVIEW OF SYSTEMS: The patient was examined on the bedside, in his room. At that moment, he was sleepy, moving all four extremities. Still having ulcers on the feet. No fever, no chills. No hematuria or hematochezia. No headache. No dizziness. PHYSICAL EXAMINATION: VITAL SIGNS: Temperature 98.4, pulse 80, respiratory rate 18, blood pressure 120/80 , pulse oximetry 98. HEENT: Head, normocephalic and atraumatic. Eyes, PERRLA. Extraocular muscles intact. Conjunctivae clear. Nose patent. NECK: Supple. No carotid bruit, JVD, or thyromegaly. CHEST: Bilaterally symmetrical. HEART: S1 and S2 positive. LUNGS: Clear to auscultation. ABDOMEN: Soft. Bowel sounds present. No organomegaly. EXTREMITIES: No edema. No cyanosis. NEUROLOGICAL: The patient is awake, alert. Moving all four extremities. No focal deficits. LABORATORY DATA: White blood cell is 6.7, hemoglobin 8.3, hematocrit 26.5, platelets 130. Sodium 140, potassium 4.6, BUN 57, creatinine 8.1 and glucose 200. ASSESSMENT AND PLAN: Mr. Jason Berger is a 52-year-old male with anemia; renal insufficiency, on hemodialysis; insulin-dependent diabetes mellitus. Actually, patient's sugar number is fluctuating too much, sometimes it is coming like single number as per homemaker and visiting nurse, and sometimes it is going very high. That is why we called a consult with motor route carrier, Dr. Brittany Ramirez. Same thing happening with blood pressure is too much fluctuation. Patient has end-stage renal disease, on hemodialysis. Dr. Malcolm is on the case. I think she will adjust the blood pressure. Insomnia, Dr. Escalera is on the case. Anxiety, we will call Dr. Malcolm. Diabetic foot ulcer, already saw the patient. History of coronary artery disease, cardiac pacemaker, catheterization, cardiac stenting. Restarted all medications. Obstructive sleep apnea syndrome and need bilevel positive airway pressure. Discussion done with nursing staff. Repeat labs. We will follow up. Diana Kessler MD MTDD
--- NOTE | 2017-07-24 07:52 | PN ---
DATE: 07/22/2017 ENDOCRINOLOGY FOLLOWUP NOTE LOCATION: In room 560. SUBJECTIVE: This is a 52-year-old male with recent uncontrolled type 2 insulin-requiring diabetes, now being followed closely for metabolic management. His glycemic levels are fluctuating, but improved also with improved oral intake as noted. His glucose values overnight have ranged from 209-269 mg/dL. His bedtime glucose was 144-234 mg/dL. His latest chemistries include a BUN of 40, sodium 140, potassium 4.2, chloride 96, CO2 of 31, glucose 192 and creatinine 6. ASSESSMENT: This is a 52-year-old male with uncontrolled and decompensated type 2 insulin-requiring diabetes, presenting here with nonhealing neuropathic foot ulcerations and undergoing IV antibiotic management and is being followed closely also for metabolic management. He also has diabetic microvascular complications of retinopathy, polyneuropathy and nephropathy with end-stage renal disease and dialysis dependence. He also has diabetic macrovascular complications of coronary artery disease with peripheral arterial disease and vasculopathy as mentioned thereof. PLAN OF MANAGEMENT: As the patient's oral intake has improved overnight, we will start him back on a more physiologic basal and bolus insulin drug combination as ordered. We will add the Humulin NPH given as 14 units subcu at bedtime daily to start tonight. We will also add regular insulin given as 8 units subcu t.i.d. before meals as ordered. We will titrate incrementally as indicated to optimize metabolic control. We will also obtain serial chemistries and supplement accordingly as needed. We will follow. Brittany Ramirez MD
--- NOTE | 2017-07-24 08:00 | PN ---
DATE: 07/23/2017 ENDOCRINOLOGY FOLLOWUP LOCATION: Room 560. This is a 52-year-old male with recent uncontrolled type 2 insulin-requiring diabetes now being followed closely for metabolic management. His glycemic levels are fluctuating but improved and the latest glucose levels overnight showed a glucose of 167 to 258 mg/dL. It was 305 at bedtime last night and actually, the highest glucose level at dinnertime of 445 mg/dL. His latest chemistries include a BUN of 40, sodium 140, potassium 4.2, chloride 96, CO2 31, glucose 192 and creatinine 6. His hemoglobin A1c is 7.8%, which is near optimal in terms of his outpatient metabolic control of his diabetic condition. ASSESSMENT: This is a 52-year-old male with uncontrolled and decompensated type 2 insulin-requiring diabetes presented here with lower extremity cellulitis with underlying neuropathic ulcers which are poorly healing at this time and is now being referred for diabetic evaluation and management. He also has diabetic microvascular complications of retinopathy, polyneuropathy and nephropathy with end-stage renal disease and dialysis dependence. Moreover, he has diabetic macrovascular complications of coronary artery disease and peripheral arterial disease and vasculopathy. PLAN OF MANAGEMENT: We will modify once again his basal and bolus insulin regimen and increase the Humulin NPH to 40 units subcu at bedtime daily as ordered. We will also increase the regular insulin to 14 units subcu t.i.d. before meals to start today as ordered. We will titrate incrementally as indicated to optimize metabolic control. We will obtain serial chemistries and supplement accordingly as needed. The patient actually follows with at [facility] for his outpatient diabetic management and he promises to go back for routine checkup the next month as soon as indicated. Brittany Ramirez MD
[2017-07-24] MEDS: Insulin Regular 1 UNITS/0.01 ML ML SC SCH ×2 (08:01→12:14)
[2017-07-24] MEDS: Insulin Reg-LOW-Coverage SC SCH ×2 (08:01→12:14)
[2017-07-24 09:24] LABS: ALBUMIN 3.8 g/dL (3.0-4.8); CALCIUM 8.6 mg/dL (8.4-10.5)
[2017-07-24 09:34] LABS: BASO # 0.02 K/mm3 (0.0-2.0); BASO % 0.3 % (0.0-3.0); EOS # 0.1 (0.0-0.7); EOS % 1.8 % (1.5-5.0); GRAN # 4.23 (1.4-6.5); GRAN % 71.1 % (50.0-68.0); HEMOGLOBIN 8.2 g/dL (14.0-18.0); LYMPH # 1.2 (1.2-3.4); LYMPH % 19.8 % (22.0-35.0); MEAN CELL VOLUME 93.4 fl (80.0-105.0); MEAN CORPUSCULAR HEMOGLOBIN 30.3 pg (25.0-35.0); MEAN CORPUSCULAR HGB CONC 32.4 g/dl (31.0-37.0); MEAN PLATELET VOLUME 12.6 fl (7.0-11.0); MONO # 0.4 (0.1-0.6); RBC 2.71 10^6/uL (3.5-6.1); RED CELL DISTRIBUTION WIDTH 17.7 % (11.5-14.5)
[2017-07-24 12:07] VITALS: O2SAT 100
[2017-07-24] MEDS: Lidocaine 5% Patch TD SCH (12:10)
[2017-07-24] MEDS: Sildenafil 20 MG TAB PO SCH (12:11)
[2017-07-24] MEDS: Pantoprazole 40 mg EC Tab PO SCH (12:12)
[2017-07-24] MEDS: Multivitamin With Minerals Tab PO SCH (12:12)
[2017-07-24] MEDS: [UNRECOGNIZED DRUG - OTHER] PO SCH ×2 (12:13→14:42)
[2017-07-24] MEDS: CADEXOMER IODINE 0.9% GEL 10G TOP SCH (12:14)
[2017-07-24] MEDS: DICLOFENAC SODIUM TOP SCH (12:14)
[2017-07-24] MEDS: FISH OIL PO SCH (12:15)
[2017-07-24] MEDS: ADVAIR IH SCH (12:15)
[2017-07-24] MEDS: DHA PO SCH (12:15)
[2017-07-24] MEDS: OMEGA PO SCH (12:15)
[2017-07-24] MEDS: EPA PO SCH (12:15)
[2017-07-24 13:09] VITALS: BMI 33.6
--- NOTE | 2017-07-24 13:19 | CT ---
PROCEDURE: CT of the left foot without contrast HISTORY: r/o osteomyelitis left foot COMPARISON: TECHNIQUE: CT of the left foot was performed in the axial plane with sagittal and coronal reconstructions FINDINGS: There is bony sclerosis and fragmentation of the head of the 2nd metatarsal. The findings are most consistent with chronic osteomyelitis. Clinical correlation is suggested. There is soft tissue thickening. No evidence of abscess IMPRESSION: Bony sclerosis and fragmentation of the head of the 2nd metatarsal. Findings most consistent with chronic osteomyelitis
--- NOTE | 2017-07-24 13:49 | CP.PCM.PN ---
Subjective - Date & Time of Evaluation Date of Evaluation: 07/24/17 Time of Evaluation: 13:48 - Subjective Subjective: 52 y/o male seen and evaluated at bedside this afternoon with attending Dr. Villanueva regarding left foot ulceration and bilateral heel fissures. Pt just back from dialysis and CT scan of left lower extremity. States he feels well today. Denies any pain to the ulcer site but admits to continued mild pain in his heels. States he has been ambulating in his croc shoes. Pt is removing foot dressing at time of visit. Denies F/C/N/V/CP/SOB. Admits to chronic numbness and tingling due to his long standing neuropathy from his diabetes. Objective - Vital Signs/Intake and Output Vital Signs (last 24 hours): Temp Pulse Resp BP Pulse Ox 98.2 F 67 20 155/62 H 100 07/24/17 12:05 07/24/17 12:05 07/24/17 12:05 07/24/17 12:05 07/24/17 12:05 - Medications Medications: Current Medications Acetaminophen (Tylenol 325mg Tab) 650 mg PO Q6H PRN PRN Reason: pain Last Admin: 07/23/17 20:54 Dose: 650 mg Albuterol/Ipratropium (Duoneb 3 Mg/0.5 Mg (3 Ml) Ud) 3 ml IH [id number] [facility] Last Admin: 07/24/17 13:11 Dose: 3 ml Aspirin (Ecotrin) 81 mg PO DAILY [facility] Last Admin: 07/24/17 12:12 Dose: 81 mg Atorvastatin Calcium (Lipitor) 40 mg PO DIN [facility] Last Admin: 07/23/17 17:54 Dose: 40 mg Cadexomer Iodine (Iodosorb) 0 gm TOP DAILY [facility] Last Admin: 07/24/17 12:14 Dose: Not Given Calcium Acetate (Phoslo) 1,334 mg PO WM [facility] Last Admin: 07/24/17 12:11 Dose: 1,334 mg Docusate Sodium (Colace) 100 mg PO BID [facility] Last Admin: 07/24/17 12:14 Dose: Not Given Ergocalciferol (Drisdol 50,000 Intl Units Cap) 1 cap PO Q7D [facility] Last Admin: 07/21/17 12:45 Dose: Not Given Fenofibrate (Tricor) 145 mg PO DAILY [facility] Last Admin: 07/24/17 12:11 Dose: 145 mg Insulin Human NPH (Humulin N) 40 units SC HS [facility] Last Admin: 07/23/17 21:02 Dose: 40 units Insulin Human Regular (Humulin R Low) 0 units SC ACHS [facility] PRN Reason: Protocol Last Admin: 07/24/17 12:14 Dose: Not Given Insulin Human Regular (Humulin R) 14 units SC AC [facility] Last Admin: 07/24/17 12:14 Dose: Not Given Latanoprost (Xalatan Opht) 0 ml OU HS [facility] Last Admin: 07/23/17 21:03 Dose: 2.5 ml Lidocaine (Lidoderm) 1 ea TD DAILY [facility] Last Admin: 07/24/17 12:10 Dose: 1 ea Loratadine (Claritin) 10 mg PO DAILY [facility] Last Admin: 07/24/17 12:13 Dose: 10 mg Montelukast Sodium (Singulair) 10 mg PO HS [facility] Last Admin: 07/23/17 21:03 Dose: 10 mg Multivitamins/Minerals (Therapeutic-M Tab) 1 tab PO DAILY [facility] Last Admin: 07/24/17 12:12 Dose: 1 tab Mupirocin (Bactroban Ointment) 0 gm TOP BID [facility] Last Admin: 07/24/17 12:13 Dose: Not Given Nateglinide (Starlix) 120 mg PO ACL [facility] Last Admin: 07/24/17 12:12 Dose: 120 mg [Risacal-D Tablet] ((Home Med)) 2 tab PO TID [facility] Last Admin: 07/24/17 12:13 Dose: Not Given Diclofenac Sodium [ Voltaren Gel) Home Med 0 appl TOP DAILY [facility] Last Admin: 07/24/17 12:14 Dose: Not Given Tilden-3s/Dha/Epa/Fish Oil (Home Med) 2 cap PO BID [facility] Last Admin: 07/24/17 12:15 Dose: Not Given Advair Hfa 230-21 ((Home Med)) 1 puff IH DAILY [facility] Last Admin: 07/24/17 12:15 Dose: Not Given Pantoprazole Sodium (Protonix Ec Tab) 40 mg PO DAILY [facility] Last Admin: 07/24/17 12:12 Dose: 40 mg Pregabalin (Lyrica) 50 mg PO HS [facility] Last Admin: 07/23/17 21:03 Dose: 50 mg Sildenafil Citrate (Revatio) 20 mg PO BID [facility] Last Admin: 07/24/17 12:11 Dose: 20 mg Sodium Chloride ([place] Nasal [place]) 0 ml NS Q2H PRN PRN Reason: Nasal congestion Last Admin: 07/23/17 17:51 Dose: 3 spr Tamsulosin HCl (Flomax) 0.4 mg PO DAILY [facility] Last Admin: 07/24/17 12:12 Dose: 0.4 mg Ticagrelor (Brilinta) 90 mg PO BID [facility] Last Admin: 07/24/17 12:12 Dose: 90 mg Zolpidem Tartrate (Ambien) 5 mg PO HS PRN; Protocol PRN Reason: Insomnia Last Admin: 07/23/17 21:03 Dose: 5 mg - Labs Labs: 07/24/17 06:35 07/24/17 06:35 - Constitutional Appears: Well, Non-toxic, No Acute Distress - Extremities Exam Additional comments: Lower extremity focused exam: Vasc: DP/PT pulses palpable 2/4. CFT < 3 sec to all digits. No pedal edema noted. Temperature gradient warm to cool Derm: Open ulceration measuring approx 0.6cm x 0.6cm x 0.1cm noted to level of plantar first metatarsal head. No malodor, no uriel-wound erythema, no fluctuance , no drainage, no tunneling, no probe to bone or undermining. No sinus tract formation in any direction. Linear skin fissures noted to bilateral posterior heels with localized ischemic skin changes noted. No fluctuance, no malodor, no drainage, no other clinical signs of infection noted. Neuro: Protective sensation grossly diminished upon assessment Ortho:No tenderness to palpation of left foot sub met 1 ulceration. Mild tenderness to palpation of bilateral posterior heels at fissure sites - Neurological Exam Neurological Exam: Alert, Awake, Oriented x3 - Psychiatric Exam Psychiatric exam: Normal Affect, Normal Mood Assessment and Plan - Assessment and Plan (Free Text) Assessment: 52 y/o male with 1) left foot sub met 1 diabetic ulceration and 2) bilateral posterior heel fissures secondary to diabetes with neuropathy 3) Displaced fracture distal aspect of left second proximal phalanx Plan: Patient seen and evaluated with attending Dr. Villanueva Charts, labs vitals reviewed - afebrile, WBC 6.0, ESR 65 Wound cx left foot ulcer (+) growth of S. aureus Xray: negative for osteomyelitis of 1st metatarsal head; nonspecific erosive changes at 2nd met head indicative of possible chronic OM; incidental finding of acute, displaced fracture of right foot second digit proximal phalanx CRP pending Lower ext CT ordered and reviewed - bony sclerosis and fragmentation of 2nd metatarsal head left foot No wounds associated with 2nd metatarsal head- left foot ulceration is strictly sub met 1 and does not track laterally - if osteomyelitis, likely chronic in nature as there are no acute processes at this time that could be cause ID on board, continue IV abx -recommend Levaquin for osseous coverage, dosage recommendations appreciated Pt may be full WB with use of forefoot offloading shoe to L foot Ulceration cleaned with saline dressed with iodosorb and Optifoam Foam bandages applied to B/L heels No plan for surgical intervention at this time - pt stable from podiatry standpoint Upon D/C, pt instructed to follow up in wound care center on Monday 07/[address] Villanueva Podiatry will continue to follow while patient in house
[2017-07-24 14:41] VITALS: BP 147/57; PULSE 66; TEMP 98
--- NOTE | 2017-07-24 15:47 | PN ---
DATE: 07/24/2017 SUBJECTIVE: The patient is seen sitting in chair. He is awake. He is alert. He is comfortable. He had dialysis early this morning. He denies any chest pain. Denies any shortness of breath. PHYSICAL EXAMINATION: GENERAL: Middle-aged male sitting in chair. VITAL SIGNS: Blood pressure 155/62, heart rate 67, respiratory rate 20, temperature 98.2. HEENT: Normocephalic, atraumatic, positive pallor. NECK: Supple, no JVD. LUNGS: Bilateral equal air entry, bilateral equal expansion, no rales. CARDIAC: S1 and S1, regular rate and rhythm, no murmur, no rub. ABDOMEN: Obese, distended, soft, nontender, bowel sounds present. EXTREMITIES: Dressing of both feet. INTAKE AND OUTPUT: Not charted. LABORATORY DATA: WBC 6, hemoglobin 8.2, hematocrit 25, platelets 85. Sodium 140, potassium 4.9, chloride 96, CO2 24, BUN 84, creatinine 10.5, glucose 171, calcium 8.7, phosphorus 5.8, magnesium 2.4, albumin 3.8. CURRENT MEDICATIONS: Ambien, Bactroban, Brilinta, , Colace, Drisdol, DuoNeb, aspirin, Flomax, insulin, Lipitor 40, Lyrica 50, PhosLo, Protonix, Revatio 20 b.i.d., Singulair, Starlix, TriCor, Tylenol, Xalatan. ASSESSMENT: 1. Diabetic foot ulcers. 2. Diabetic neuropathy. 3. End-stage renal disease. 4. Coronary artery disease, percutaneous transluminal coronary angioplasty and stents, recent pacemaker. 5. Pulmonary hypertension. 6. Severe anemia. 7. Noninsulin-dependent diabetes mellitus. 8. Secondary hyperparathyroidism. PLAN: 1. Stable dialysis today. 2. Continue wound care. 3. Continue to monitor fingersticks. 4. Discharge planning. Eva Malcolm MD
--- NOTE | 2017-07-24 17:33 | PN ---
DATE: 07/24/2017 ENDOCRINOLOGY FOLLOWUP NOTE LOCATION: Room 560. SUBJECTIVE: This is a 52-year-old male with recent uncontrolled type 2 insulin-requiring diabetes, presenting here with nonhealing neuropathic ulcerations and underlying cellulitis and is being followed closely now for metabolic management. His glycemic levels are fluctuating but improved and the latest glucose levels today have ranged from 102-169 and 190 mg/dL. His latest chemistries include a BUN of 84, sodium 140, potassium 4.9, chloride 96, CO2 of 25, glucose 171, and creatinine 10.5. So, at this time, we will continue the same basal and bolus insulin regimen to allow for dose equilibration and keep him on the regular insulin given as 14 units subcu t.i.d. before meals as ordered. We will continue also the long-acting basal insulin given overnight with Humulin NPH given as 40 units subcu at bedtime daily as given. We will continue the low-dose correction scale using regular insulin as ordered. We will obtain serial chemistries and supplement accordingly as needed. We will follow. Brittany Ramirez MD
--- NOTE | 2017-07-24 20:01 | PN ---
DATE: 07/24/2017 REFERRING PHYSICIAN: Diana Kessler MD SUBJECTIVE: The patient is lying in the bed, head at 45 degrees, status post dialysis. Night was unremarkable. Tolerated CPAP well. No headache, no rhinitis. No nausea, no vomiting, no diarrhea. Has a dressing on the left foot. OBJECTIVE: GENERAL: In no acute distress. VITAL SIGNS: Temperature is 98, heart rate 66, respiratory rate is 20, blood pressure 147/57, pulse of 100% on room air. HEENT: Moist mucous membrane. Crowded airway. Mallampati score is 4. NECK: Supple. No JVD. LUNGS: Has a fair airflow with rhonchi. HEART: S1 and S2. ABDOMEN: Soft, nontender. No organomegaly. EXTREMITIES: Left foot had dressing. NEUROLOGICAL: Awake and alert. Follows simple command. MEDICATIONS: Reviewed. No new changes reported. LABORATORY DATA: Shows hemoglobin 8.2, hematocrit 25.3, WBC 6, platelet is 85. Sodium 140, potassium 4.9, chloride 96, bicarbonate 25, BUN 84, creatinine 10.5, glucose 171, calcium is 8.6, phosphorus 5.8, magnesium 2.4, AST 65, ALT 51, alkaline phosphatase is 66. C-reactive protein greater than 15. Albumin is 3.8. IMPRESSION AND PLAN: Severe peripheral vascular disease with foot ulcers requiring debridement, chronic obstructive lung disease, obstructive sleep apnea syndrome, cardiac arrhythmia requiring pacemaker, pulmonary hypertension, diabetes, renal failure, dialysis dependent. Pulmonary point of view, he is doing okay. Continue current CPAP. Continue bronchodilator. Keep head at 45 degrees. Antibiotics as per Infectious Diseases. Gastric and deep vein thrombosis prophylaxis. Podiatry followup. Thank you and we will follow with you. Jarred Escalera MD
--- NOTE | 2017-07-24 23:51 | CON ---
DATE: REASON FOR CONSULTATION: Need for dialysis, pain in both feet. HISTORY OF PRESENTING ILLNESS: A 52-year-old male with end-stage renal disease, on hemodialysis Monday, Monday, and Monday; CAD; NIDDM; hypertension; anxiety; presented to the emergency room yesterday with complaints of severe pain in his feet. Open sores on the feet. Difficulty walking. Generalized pain. Shortness of breath. Anxiety. He was seen by Podiatry. He underwent debridement of hyperkeratotic tissue on the soles of his feet. He is currently seen in the dialysis unit. He complains of severe anxiety. He complains of generalized body ache. He denies any chest pain. He denies any shortness of breath. PAST MEDICAL AND SURGICAL HISTORY: NIDDM, hypertension, CAD, PTCA and stent, CHF, diabetic neuropathy, diabetic nephropathy, diabetic retinopathy, ESRD, severe anemia, recent pacemaker placement. FAMILY HISTORY: Hypertension, diabetes, and ESRD. SOCIAL HISTORY: Ex-smoker, no alcohol use, no IV drug abuse. ALLERGIES: INSULIN, MOXIFLOXACIN, PENICILLIN. MEDICATIONS: List reviewed. REVIEW OF SYSTEMS: As mentioned above in history of presenting illness, rest unremarkable. PHYSICAL EXAMINATION: GENERAL: Middle-aged male, sitting in chair in the dialysis unit, in mild distress. VITAL SIGNS: Blood pressure 143/59, heart rate 70, respiratory rate 18 to 20, temperature 98.6. HEENT: Normocephalic, atraumatic, positive pallor. NECK: Supple, no JVD. LUNGS: Bilateral equal air entry, bilateral equal expansion, no rales. CARDIAC: S1 and S2, regular rate and paced rhythm. ABDOMEN: Obese, distended, soft, nontender, bowel sounds present. EXTREMITIES: Dressing of both feet. LABORATORY DATA: WBC 6.7, hemoglobin 8.3, hematocrit 26.5, and platelets 130. Sodium 140, potassium 4.6, chloride 98, CO2 of 26. BUN 57, creatinine 8.1. Glucose 200. Calcium 7.5. AST 67, ALT 54. ASSESSMENT: 1. Diabetic neuropathy. 2. Diabetic foot pain. 3. End-stage renal disease. 4. Coronary artery disease. 5. Anxiety. 6. Severe anemia. 7. Hypertension. PLAN: 1. Dialysis as per regular schedule today. 2. Increase ultrafiltration. 3. Decrease . 4. Pain management. 5. Wound care. 6. Continue fingerstick monitoring and insulin coverage. 7. Continue current antihypertensives. 8. Increase Aranesp upon dialysis. Eva Malcolm MD [facility] # [id number]
== END 2017-07-24 16:31 | disposition home health service (06) | DRG 638 ==
LOC: ED 01:18 → ERH 04:14 → 5RNO 05:26 → OBSVTOIN 07-22 11:07
PROVIDERS: ADMIT Internal Medicine; ATTEND Internal Medicine
PROC: 0HBNXZZ Excision of Left Foot Skin, External Approach (ICD-10-PCS; principal; 2017-07-21)
PROC: 3E0F7GC Introduction of Other Therapeutic Substance into Respiratory Tract, Via Natural or Artificial Opening (ICD-10-PCS; 2017-07-21)
DX: E11.621 Type 2 diabetes mellitus with foot ulcer (principal); L97.419 Non-pressure chronic ulcer of right heel and midfoot with unspecified severity; L97.429 Non-pressure chronic ulcer of left heel and midfoot with unspecified severity; I13.2 Hypertensive heart and chronic kidney disease with heart failure and with stage 5 chronic kidney disease, or end stage renal disease; L97.529 Non-pressure chronic ulcer of other part of left foot with unspecified severity; E11.51 Type 2 diabetes mellitus with diabetic peripheral angiopathy without gangrene; N18.6 End stage renal disease; N25.81 Secondary hyperparathyroidism of renal origin; E11.43 Type 2 diabetes mellitus with diabetic autonomic (poly)neuropathy; E11.42 Type 2 diabetes mellitus with diabetic polyneuropathy; L97.519 Non-pressure chronic ulcer of other part of right foot with unspecified severity; Z99.2 Dependence on renal dialysis; I25.10 Atherosclerotic heart disease of native coronary artery without angina pectoris; G47.00 Insomnia, unspecified; G47.33 Obstructive sleep apnea (adult) (pediatric); F41.9 Anxiety disorder, unspecified; R29.6 Repeated falls; E11.319 Type 2 diabetes mellitus with unspecified diabetic retinopathy without macular edema; E11.21 Type 2 diabetes mellitus with diabetic nephropathy; J44.9 Chronic obstructive pulmonary disease, unspecified; E11.22 Type 2 diabetes mellitus with diabetic chronic kidney disease; D63.1 Anemia in chronic kidney disease; I27.20 Pulmonary hypertension, unspecified; R26.2 Difficulty in walking, not elsewhere classified; I50.9 Heart failure, unspecified; G89.29 Other chronic pain; M25.512 Pain in left shoulder; I08.3 Combined rheumatic disorders of mitral, aortic and tricuspid valves; E78.5 Hyperlipidemia, unspecified; S92.501A Displaced unspecified fracture of right lesser toe(s), initial encounter for closed fracture; W19.XXXA Unspecified fall, initial encounter; Y92.009 Unspecified place in unspecified non-institutional (private) residence as the place of occurrence of the external cause; Z79.4 Long term (current) use of insulin; E66.9 Obesity, unspecified; Z68.32 Body mass index [BMI] 32.0-32.9, adult; Z91.19 Patient's noncompliance with other medical treatment and regimen; Z86.73 Personal history of transient ischemic attack (TIA), and cerebral infarction without residual deficits; Z94.7 Corneal transplant status; Z95.5 Presence of coronary angioplasty implant and graft; Z90.49 Acquired absence of other specified parts of digestive tract; Z95.0 Presence of cardiac pacemaker; Z88.0 Allergy status to penicillin; Z87.891 Personal history of nicotine dependence

== ENCOUNTER 2017-07-25 13:03 | Observation (INO) | payer MEDICARE, OTHER ==
--- NOTE | 2017-07-25 13:40 | ED PDOC ---
Arrival/HPI - General Time Seen by Provider: 07/25/17 13:11 Historian: Patient, Parent (mother) - History of Present Illness Narrative History of Present Illness (Text): 07/25/17 13:35 A 52 year old male, whose past medical history includes COPD, CAD, cardiac catherization, coronary stents x 2, pacemaker, ESRD on hemodialysis (M/W/F; last session 07/24/2017), diabetes, and hypertension, brought in by EMS presents to the emergency department with AMS. Patient reports he currently feels sleepy and thirsty. Patient states he may have fallen but is unable to recall the incident. Patient notes also experiencing left-sided headache and head pain, likely due to possible head trauma s/p fall. As per patient's mother , patient was found lying on the floor, however mother is uncertain as to how patient fell. Patient notes he took Ambien today. Patient's glucose level in ER is 64. Patient denies any substance abuse, alcohol abuse, or any other complaints. PMD: Dr. Kessler Painter Hand: Dr Malcolm Symptom Onset: Gradual Symptom Course: Unchanged Activities at Onset: Light Context: Home Past Medical History - Provider Review Nursing Documentation Reviewed: Yes - Past History Past History: No Previous - Infectious Disease Hx of Infectious Diseases: None - Tetanus Immunization Tetanus Immunization: Up to Date - Reproductive Currently Lactating: No - Cardiac Hx Cardiac Disorders: Yes (CAD) Hx Hypertension: Yes - Pulmonary Hx Chronic Obstructive Pulmonary Disease (COPD): Yes - Neurological Hx Transient Ischemic Attacks (TIA): Yes - HEENT Hx HEENT Disorder: Yes (BILATERAL EYE WITH BLURRY VISION) Hx Cataracts: Yes (HAD SX 05/29/12) Other/Comment: left eye cornea transplant,RENAL RETINOPATHY, glasses - Renal Hx Renal Failure: Yes (ESRD (on hemodialysis 3x/wk)) - Endocrine/Metabolic Hx Diabetes Mellitus Type 2: Yes - Hematological/Oncological Hx Anemia: Yes (With transfusions) - Integumentary Hx Dermatological Disorder: Yes (BILATERAL EDEMA TO UPPER AND LE,SKIN DRYNESS) - Musculoskeletal/Rheumatological Hx Arthritis: Yes - Gastrointestinal Hx Gastrointestinal Disorders: No - Genitourinary/Gynecological Hx Genitourinary Disorders: Yes (esrd on HD MWF) - Psychiatric Hx Psychophysiologic Disorder: No Hx Anxiety: Yes Hx Substance Use: No - Surgical History Hx Cardiac Catheterization: Yes Hx Cholecystectomy: Yes (08/15/12) Hx Coronary Stent: Yes (x2 monday06/13/17) Other/Comment: FISTULA/pacemaker 2 weeks ago - Anesthesia Hx Anesthesia: Yes Hx Anesthesia Reactions: No Hx Malignant Hyperthermia: No - Suicidal Assessment Feels Threatened In Home Enviroment: No Family/Social History - Physician Review Nursing Documentation Reviewed: Yes Family/Social History: No Known Family HX Smoking Status: Never Smoked Hx Alcohol Use: No Hx Substance Use: No Hx Substance Use Treatment: No Allergies/Home Meds Allergies/Adverse Reactions: Allergies insulin aspart [From Novolog] Allergy (Intermediate, Verified 07/21/17 01:26) ITCHING ANY INSULIN THAT STARTS WITH NOV- moxifloxacin Allergy (Intermediate, Verified 07/21/17 01:26) ITCHING Penicillins Allergy (Intermediate, Verified 07/21/17 01:26) ITCHING Home Medications: Home Meds Medication Instructions Recorded Confirmed Diclofenac Sodium [Voltaren] 1 appl TOP DAILY 06/14/17 07/25/17 Nateglinide [Starlix] 1 tab PO HS 06/14/17 07/25/17 Ergocalciferol (Vitamin D2) 50,000 unit PO WED 06/16/17 07/25/17 [Vitamin D2] Fenofibrate [Triglide] 160 mg PO DAILY 06/16/17 07/25/17 Multivitamin with Iron 1 each PO DAILY 06/16/17 07/25/17 [Multivitamins with Iron] Intervale-3S/Dha/Epa/Fish Oil [Fish 2 cap PO BID 06/16/17 07/25/17 Oil Intervale-3 Softgel] Bimatoprost [Lumigan] 1 drp OU HS 07/05/17 07/25/17 Cetirizine HCl [Zyrtec] 10 mg PO DAILY 07/05/17 07/25/17 Insulin Regular [HumuLIN R] 90 units SC ACB 07/05/17 07/25/17 Insulin Regular [HumuLIN R] 90 units SC ACD 07/05/17 07/25/17 Insulin Human NPH [Humulin N] 70 units SC ACD 07/05/17 07/25/17 Insulin Human NPH [Humulin N] 80 units SC ACB 07/05/17 07/25/17 Salmeterol Xinafoate/Fluticaso 1 puff IH BID 07/05/17 07/25/17 [Advair Hfa 230-21] hydrALAZINE [Apresoline] 20 mg PO BID 07/05/17 07/25/17 metroNIDAZOLE 0.75% [Metrogel 1 applic TOP DAILY PRN 07/05/17 07/25/17 Cream] Calcium Acetate [Phoslo] 1,334 mg PO ACTID 07/21/17 07/25/17 Pregabalin [Lyrica] 50 mg PO HS 07/25/17 07/25/17 Review of Systems - Physician Review All systems were reviewed & negative as marked: Yes - Review of Systems Constitutional: absent: Fevers Gastrointestinal: Normal Musculoskeletal: Other (head pain) Neurological: Headache (left side) Physical Exam Vital Signs Reviewed: Yes Vital Signs Temp Pulse Pulse Resp BP Pulse Ox 07/25/17 22:41 97.2 F L 64 66 20 121/49 L 07/25/17 22:00 66 07/25/17 20:35 86 07/25/17 18:29 60 17 104/55 L 99 07/25/17 18:09 84 18 114/41 L 94 L 07/25/17 14:59 98.1 F 60 16 151/65 H 100 07/25/17 13:30 63 16 148/64 98 Temperature: Afebrile Blood Pressure: Normal Pulse: Regular Respiratory Rate: Normal Appearance: Positive for: Other (drowsy, however arousable to voice) Pain Distress: None Mental Status: Positive for: Alert and Oriented X 3 - Systems Exam Head: Present: Normocephalic, Other (left posterior hematoma; no laceration) Pupils: Present: PERRL Extroacular Muscles: Present: EOMI Conjunctiva: Present: Normal Ears: Present: Other (visible blood from left ear and cannot visualize TM; right ear normal examination) Mouth: Present: Moist Mucous Membranes Pharnyx: Present: Normal Nose (External): Present: Atraumatic Nose (Internal): Present: Normal Inspection, No Active Bleeding Neck: Present: Normal Range of Motion. No: MIDLINE TENDERNESS Respiratory/Chest: Present: Clear to Auscultation, Good Air Exchange. No: Respiratory Distress, Accessory Muscle Use Abdomen: No: Tenderness, Distention, Peritoneal Signs Back: No: Midline Tenderness Upper Extremity: Present: Normal Inspection. No: Cyanosis, Edema Lower Extremity: Present: Other (lower extremity weakness due to past CVA ( baseline)). No: Edema Neurological: Present: GCS=15, CN II-XII Intact, Speech Normal, Motor Func Grossly Intact, Normal Sensory Function Skin: Present: Warm, Dry, Normal Color. No: Rashes Psychiatric: Present: Oriented x 3. No: Alert (drowsy) Medical Decision Making ED Course and Treatment: 07/25/17 13:39 Impression: 52 year old male with AMS. Physical exam shows left external ear visible blood; head: left posterior hematoma; lower extremity weakness due to past CVA (baseline). Differential Diagnoses: Mechanical fall vs. Syncope vs. Hypoglycemia; secondary to head trauma: Intracranial Hemorrhage Plan: -- EKG -- Head CT -- Cervical CT -- Maxillofacial CT -- Chest X-Ray -- Venous Blood Gas -- Labs -- Blood Culture -- Urine Culture -- Urinalysis Prior Visits: 07/21/2017 for open sores to both feet, anxiety, and difficulty sleeping. Patient was admitted. Progress Notes: EKG shows pacemaker at 61 BPM. 07/25/2017 14:[address] IMPRESSION: No acute findings. Dictator: Robbie Redman MD 07/25/2017 14:[address] IMPRESSION: No acute findings. Dictator: Robbie Redman MD 07/25/2017 14:[address] IMPRESSION: Severe disc degeneration at C5-6. There are no acute findings. Dictator: Robbie Redman MD 07/25/2017 15:06 Chest X-ray IMPRESSION: No active disease. Dictator: Robbie Redman MD 07/25/17 16:42 Patient's glucose was low on arrival and so he was given an amp of D50 but that did not wake him up. He continue to be drowsy. Patient wounds were cleaned. His head did not show any laceration. The left ear had blood obstructing the view of the TM. UA with concern for UTI. CXR negative. Treated with Aztreonam for possible TM perforation and UTI. Thoughout the ED stay patient gradually became more awake but then would get drowsy. I discussed the case with Dr. Kessler who agreed to admit the patient to her service. - Lab Interpretations Microbiology Results: Microbiology Results 07/25/17 14:15 Blood Blood Culture - Preliminary NO GROWTH AFTER 3 DAYS 07/25/17 13:45 Blood Blood Culture - Preliminary NO GROWTH AFTER 3 DAYS Lab Results: 07/25/17 13:50 07/25/17 13:50 Lab Results 07/25/17 16:23: pO2 45, VBG pH 7.38, VBG pCO2 54.0, VBG HCO3 31.9 H, VBG Total CO2 33.6 H, VBG O2 Sat (Calc) 86.6 H, VBG Base Excess 5.3 H, VBG Potassium 5.6 H , Glucose 270 H, Lactate 1.4, FiO2 21.0, Sodium 134.0, Chloride 100.0, Venous Blood Potassium 5.6 H 07/25/17 14:57: POC Glucose (mg/dL) 275 H 07/25/17 14:16: PT 19.8 H, INR 1.72 H, APTT 54.8 H 07/25/17 13:50: Sodium 140, Potassium 5.4 H, Chloride 96 L, Carbon Dioxide 28, Anion Gap 21 H, BUN 57 H, Creatinine 7.4 H* D, Est GFR ( Amer) 9, Est GFR (Non-Af Amer) 8, Random Glucose 234 H, Calcium 8.7, Phosphorus 6.6 H, Magnesium 2.4 H, Total Bilirubin 1.2, AST 88 H D, ALT 46, Alkaline Phosphatase 56, Troponin I 0.09, Total Protein 8.2, Albumin 4.1, Globulin 4.1, Albumin/ Globulin Ratio 1.0 L 07/25/17 13:50: WBC 5.0, RBC 3.07 L, Hgb 9.2 L, Hct 29.5 L, MCV 96.1, MCH 30.0, MCHC 31.2, RDW 18.0 H, Plt Count 82 L, MPV 12.7 H, Gran % 86.5 H, Lymph % (Auto ) 9.5 L, [place] % (Auto) 3.8, Eos % (Auto) 0.2 L, Baso % (Auto) 0.0, Gran # 4.30, Lymph # (Auto) 0.5 L, [place] # (Auto) 0.2, Eos # (Auto) 0.0, Baso # (Auto) 0.00 07/25/17 13:27: POC Glucose (mg/dL) 64 L I have reviewed the lab results: Yes - RAD Interpretation Radiology Orders: 07/25/17 13:37 CHEST ONE VIEW [RAD] Stat 07/25/17 13:39 HEAD W/O CONTRAST [CT] Stat 07/25/17 13:40 CERVICAL SPINE W/O CONTRAST [CT] Stat 07/25/17 14:02 MAXILLOFACIAL W/O CONTRAST [CT] Stat [employer] Specialist: Radiologist - EKG Interpretation Interpreted by ED Physician: Yes Type: 12 lead EKG - Medication Orders Current Medication Orders: Discontinued Medications Acetaminophen (Tylenol 325mg Tab) 650 mg PO Q4H PRN PRN Reason: Fever >100.5 F Acetaminophen (Tylenol 325mg Tab) 650 mg PO STAT STA Stop: 07/26/17 00:46 Last Admin: 07/26/17 01:04 Dose: 650 mg MAR Pain/Vitals Document 07/26/17 01:04 KTB (Rec: 07/26/17 01:04 KTB [id number]) Pain Reassessment Is This A Pain ReAssessment? No Presence of Pain Presence of Pain Yes Pain Scale Used Pain Scale Used Numeric Location Pain Location Body Site Generalized Intensity 10 Scale Used Numeric Albuterol/Ipratropium (Duoneb 3 Mg/0.5 Mg (3 Ml) Ud) 3 ml IH STAT STA Stop: 07/26/17 00:46 Last Admin: 07/26/17 01:00 Dose: 3 ml Albuterol/Ipratropium (Duoneb 3 Mg/0.5 Mg (3 Ml) Ud) 3 ml IH [id number] [facility] Last Admin: 07/26/17 20:10 Dose: 3 ml Aspirin (Ecotrin) 81 mg PO DAILY [facility] Last Admin: 07/26/17 16:30 Dose: 81 mg Comments: PT IN DIALYSIS Atorvastatin Calcium (Lipitor) 40 mg PO DIN [facility] Last Admin: 07/26/17 18:05 Dose: 40 mg Calcium Acetate (Phoslo) 1,334 mg PO ACTID [facility] Last Admin: 07/26/17 16:38 Dose: 1,334 mg Dextrose (Dextrose 50% Inj) 50 ml IVP STAT STA Stop: 07/25/17 18:32 Last Admin: 07/25/17 18:46 Dose: Ergocalciferol (Drisdol 50,000 Intl Units Cap) 1 cap PO WED [facility] Last Admin: 07/26/17 16:29 Dose: 1 cap Comments: PATIENT IN DIALYSIS Fenofibrate (Tricor) 145 mg PO DAILY [facility] Last Admin: 07/26/17 16:37 Dose: 145 mg Comments: DIALYSIS TODAY Hydralazine HCl (Apresoline) 20 mg PO BID [facility] Last Admin: 07/26/17 18:04 Dose: Not Given Non-Admin Reason: BP Parameters Not Met MAR Pulse and Blood Pressure Document 07/26/17 18:04 (Rec: 07/26/17 18:04 [email or web address] Blood Pressure Blood Pressure (100/60-150/90) 160/53 Aztreonam (Azactam 2 Gm) 100 mls @ 100 mls/hr IVPB STAT STA PRN Reason: Protocol Stop: 07/25/17 18:46 Last Admin: 07/25/17 18:32 Dose: 100 mls/hr eMAR Start Stop Document 07/25/17 18:32 (Rec: 07/25/17 18:32 [id number] Intravenous Solution Start Date 07/25/17 Start Time 18:32 End Date 07/25/17 End time 19:32 Total Infusion Time 60 Vancomycin HCl 2 gm/ Sodium (Chloride) 500 mls @ 170 mls/hr IVPB ONCE ONE PRN Reason: Protocol Stop: 07/26/17 09:36 Last Admin: 07/26/17 16:34 Dose: 170 mls/hr Comments: IN DIALYSIS EARLIER eMAR Start Stop Document 07/26/17 16:34 (Rec: 07/26/17 16:34 [email or web address]) Intravenous Solution Start Date 07/26/17 Start Time 16:34 Insulin Human Regular (Humulin R Low) 0 units SC ACHS CARLOS PRN Reason: Protocol Last Admin: 07/26/17 16:31 Dose: Latanoprost (Xalatan Opht) 0 ml OU HS [facility] Loratadine (Claritin) 10 mg PO DAILY [facility] Last Admin: 07/26/17 16:29 Dose: 10 mg Comments: patient in dialysis Montelukast Sodium (Singulair) 10 mg PO HS [facility] Multivitamins/Minerals (Therapeutic-M Tab) 1 tab PO DAILY [facility] Last Admin: 07/26/17 16:37 Dose: 1 tab Comments: DIALYSIS TODAY Intervale-3s/Dha/Epa/Fish Oil (Home Med) 2 cap PO BID [facility] Last Admin: 07/26/17 18:05 Dose: Non-Formulary Medication (Salmeterol Xinafoate/Fluticaso [Advair Hfa 230-21]) 1 puff IH BID [facility] Last Admin: 07/26/17 18:05 Dose: Ondansetron HCl (Zofran Inj) 4 mg IVP Q4H PRN PRN Reason: Nausea/Vomiting Oxycodone/Acetaminophen (Percocet 5/325 Mg Tab) 1 tab PO STAT STA Stop: 07/26/17 04:23 Last Admin: 07/26/17 04:40 Dose: 1 tab MAR Pain Assessment Document 07/26/17 04:40 KTB (Rec: 07/26/17 04:42 KTB [id number]) Pain Reassessment Is this a pain reassessment? No Presence of Pain Presence of Pain Yes Pain Scale Used Pain Scale Used Numeric Location Pain Location Body Site Leg Generalized Description Intensity of Pain at present 10 Variations/Patterns states that it is ,mostly in the legs Site Observation seen rubbing his legs Pantoprazole Sodium (Protonix Ec Tab) 40 mg PO DAILY [facility] Last Admin: 07/26/17 16:33 Dose: 40 mg Pregabalin (Lyrica) 50 mg PO ONCE ONE Stop: 07/26/17 01:33 Last Admin: 07/26/17 01:46 Dose: 50 mg Pregabalin (Lyrica) 50 mg PO HS [facility] Sodium Chloride ([facility] Nasal [place]) 0 ml NS Q2H PRN PRN Reason: Nasal congestion Tamsulosin HCl (Flomax) 0.4 mg PO DAILY [facility] Last Admin: 07/26/17 16:30 Dose: 0.4 mg Ticagrelor (Brilinta) 90 mg PO BID [facility] Last Admin: 07/26/17 18:04 Dose: 90 mg - Scribe Statement The provider has reviewed the documentation as recorded by the Fransisca Marsh Provider Elizabethibe Attestation: All medical record entries made by the Elizabethibclive were at my direction and personally dictated by me. I have reviewed the chart and agree that the record accurately reflects my personal performance of the history, physical exam, medical decision making, and the department course for this patient. I have also personally directed, reviewed, and agree with the discharge instructions and disposition. Disposition/Present on Arrival - Present on Arrival Any Indicators Present on Arrival: Yes History of DVT/PE: No History of Uncontrolled Diabetes: Yes Urinary Catheter: No History Surgical Site Infection Following: None - Disposition Have Diagnosis and Disposition been Completed?: Yes Diagnosis: Altered mental status, Hypoglycemia, Head injury, Bleeding from left ear, Urinary tract infection, ESRD (end stage renal disease) Disposition: HOSPITALIZED Disposition Time: 16:42 Patient Plan: Admission Condition: GUARDED
[2017-07-25] MEDS ORDERED: Dextrose 50% SYRINGE Inj (50 ml) ONE (13:43)
[2017-07-25 14:10] LABS: EOS % 0.2 % (1.5-5.0); GRAN # 4.3 (1.4-6.5); GRAN % 86.5 % (50.0-68.0); HEMOGLOBIN 9.2 g/dL (14.0-18.0); LYMPH # 0.5 (1.2-3.4); LYMPH % 9.5 % (22.0-35.0); MEAN CELL VOLUME 96.1 fl (80.0-105.0); MEAN CORPUSCULAR HGB CONC 31.2 g/dl (31.0-37.0); MEAN PLATELET VOLUME 12.7 fl (7.0-11.0); MONO # 0.2 (0.1-0.6); MONO % 3.8 % (1.0-6.0); RBC 3.07 10^6/uL (3.5-6.1)
--- NOTE | 2017-07-25 14:32 | CT ---
PROCEDURE: CT HEAD WITHOUT CONTRAST. HISTORY: head injury r/o ich COMPARISON: 04/16/2017 TECHNIQUE: Axial computed tomography images were obtained through the head/brain without intravenous contrast. Radiation dose: Total exam DLP = 856 mGy-cm. This CT exam was performed using one or more of the following dose reduction techniques: Automated exposure control, adjustment of the mA and/or kV according to patient size, and/or use of iterative reconstruction technique. FINDINGS: HEMORRHAGE: No intracranial hemorrhage. BRAIN: No mass effect or edema. No atrophy or chronic microvascular ischemic changes. VENTRICLES: Unremarkable. No hydrocephalus. CALVARIUM: Unremarkable. PARANASAL SINUSES: Unremarkable as visualized. No significant inflammatory changes. MASTOID AIR CELLS: Unremarkable as visualized. No inflammatory changes. OTHER FINDINGS: None. IMPRESSION: No acute findings
--- NOTE | 2017-07-25 14:41 | CT ---
PROCEDURE: CT MAXILLOFACIAL BONES WITHOUT CONTRAST HISTORY: fall r/o fx COMPARISON: None TECHNIQUE: Contiguous axial CT images of the maxillofacial bones were obtained. Coronal and sagittal reformats were generated. Radiation dose: Total exam DLP = 745 mGy-cm. This CT exam was performed using one or more of the following dose reduction techniques: Automated exposure control, adjustment of the mA and/or kV according to patient size, and/or use of iterative reconstruction technique. FINDINGS: NASAL BONES: Unremarkable. ORBITS: Unremarkable. PARANASAL SINUSES/ MASTOIDS: Clear. MAXILLA: Unremarkable. MANDIBLE/ TEMPOROMANDIBULAR JOINTS: Unremarkable. SKULL BASE: Unremarkable. TEMPORAL BONES: Middle ears and mastoid grossly unremarkable. OTHER FINDINGS: None. IMPRESSION: No acute findings
[2017-07-25 14:48] LABS: INR 1.72 (0.93-1.08); PARTIAL THROMBOPLASTIN TIME 54.8 Seconds (25.1-36.5); PROTHROMBIN TIME 19.8 SECONDS (9.4-12.5)
--- NOTE | 2017-07-25 14:49 | CT ---
PROCEDURE: CT Cervical Spine without contrast HISTORY: fall r/o fx COMPARISON: None available. TECHNIQUE: Axial computed tomography images were obtained of the cervical spine without the use of intravenous contrast. Coronal and sagittal reformatted images were created and reviewed. Radiation dose: Total exam DLP = 579 mGy-cm. This CT exam was performed using one or more of the following dose reduction techniques: Automated exposure control, adjustment of the mA and/or kV according to patient size, and/or use of iterative reconstruction technique. FINDINGS: VERTEBRAE: No fracture. Normal alignment. No destructive bony lesion. DISCS/SPINAL CANAL/NEURAL FORAMINA: No significant central canal or neural foraminal stenosis. There is severe disc degeneration at C5-6 PARASPINAL SOFT TISSUES: Unremarkable. OTHER FINDINGS: None. IMPRESSION: Severe disc degeneration at C5-6. There are no acute findings
[2017-07-25] MEDS ORDERED: Naloxone 0.4 mg/ml Inj (Adult) ONE (15:04)
--- NOTE | 2017-07-25 15:08 | RAD ---
PROCEDURE: CHEST RADIOGRAPH, 1 VIEW HISTORY: Sepsis Patient COMPARISON: None available. FINDINGS: LUNGS: Clear. PLEURA: No pneumothorax or pleural fluid seen. CARDIOVASCULAR: There is moderate cardiomegaly OSSEOUS STRUCTURES: No significant abnormalities. VISUALIZED UPPER ABDOMEN: Normal. OTHER FINDINGS: Right-sided pacemaker IMPRESSION: No active disease.
[2017-07-25 16:26] LABS: ALBUMIN 4.1 g/dL (3.0-4.8); CALCIUM 8.7 mg/dL (8.4-10.5)
[2017-07-25 16:29] LABS: VENOUS BLOOD GAS BASE EXCESS 5.3 mmol/L (0.0-2.0); VENOUS BLOOD GAS PO2 45 mm/Hg (30-55); VENOUS BLOOD PH 7.38 (7.32-7.43)
[2017-07-25 16:32] LABS: TROPONIN I 0.09 ng/mL
[2017-07-25 17:43] LABS: PH,URINE 5.5 (4.7-8.0); URINE BILIRUBIN SMALL (NEGATIVE); URINE BLOOD MODERATE (NEGATIVE); URINE GLUCOSE (UA) 100 mg/dL (NEGATIVE); URINE LEUKOCYTE ESTERASE TRACE Leu/uL (NEGATIVE); URINE PROTEIN >=300 mg/dL (<30 mg/dL); URINE UROBILINOGEN 0.2 E.U./dL (<1 E.U./dL)
[2017-07-25 17:44] LABS: URINE APPEARANCE CLEAR (CLEAR); URINE COLOR AMBER (YELLOW)
[2017-07-25] MEDS ORDERED: Aztreonam 2 Gm in NS 100mL 100 ML IVPB STA (17:47)
[2017-07-25 18:02] LABS: BARBITURATES, UR NEGATIVE (NEGATIVE); BENZODIAZEPINES, UR POSITIVE (NEGATIVE); OPIATES, UR NEGATIVE (NEGATIVE); PHENCYCLIDINE, UR NEGATIVE (NEGATIVE)
[2017-07-25 18:09] LABS: URINE BACTERIA TRACE (NEG); URINE RBC 20 - 25 /hpf (0-2)
[2017-07-25 18:10] LABS: URINE AMORPHOUS SEDIMENT TRACE
[2017-07-25] MEDS ORDERED: Dextrose 50% SYRINGE Inj (50 ml) IVP STA (18:31)
--- NOTE | 2017-07-25 21:20 | CON ---
DATE: NEUROLOGY CONSULT CHIEF COMPLAINT: Altered mental status. HISTORY OF PRESENT ILLNESS: A 52 year old man with past medical history of COPD, coronary artery disease, pacemaker, coronary artery disease status post stent, sleep apnea syndrome, diabetic peripheral neuropathy, history of TIA, history of hypertension, history of end stage renal disease, on hemodialysis Monday, Monday and Monday, last session was 07/24/2017, was brought in for altered mental status. The patient was feeling very drowsy and very thirsty, and may have personally fallen somehow. There was experience of left sided headache and pain, likely due to possible head trauma. He was found lying on the floor; however, the mother was unsure how the patient got there. The patient notes to have taken Ambien in addition to blood sugar level in the ER was 64 indicating that he had had hypoglycemic event. He is more alert slightly, but still lethargic, follows simple commands, moves all extremities, has evidence of diabetic peripheral neuropathy on neuro exam. His blood pressure is 151/65. CT of the head showed no acute intracranial abnormalities. CT of the cervical spine did show severe degenerative disk disease at C5 C6; otherwise, no acute cervical abnormalities. Chest x ray shows no active disease. PAST MEDICAL HISTORY: As above. SOCIAL HISTORY: No illicit drug use, smoking or EtOH abuse. ALLERGIES: INSULIN ASPART, MOXIFLOXACIN, PENICILLINS. REVIEW OF SYSTEMS: A 14-point review of systems is negative except as per the HPI. FAMILY HISTORY: Noncontributory. MEDICATIONS: Reviewed by nurse's reconciliation sheet. LABORATORY DATA: Sodium 140, potassium 5.4, chloride 96, carbon dioxide of 28, BUN of 57, creatinine 7.4, random glucose 64. PHYSICAL EXAMINATION VITAL SIGNS: Temperature of 98.1, pulse rate 60, blood pressure respiratory rate 16, oxygen saturation 100% by room air. GENERAL: The patient is lethargic, but follows simple commands, moving all extremities equally. No pronator drift seen. HEENT: Atraumatic, normocephalic. PERRLA. Extraocular muscles are intact. NECK: Supple. No JVD, no adenopathy noted. LUNGS: Clear to auscultation. No adventitious sounds. HEART: S1 and S2, normal rate and rhythm. No murmurs, rubs, or gallops. ABDOMEN: Soft, nontender, and nondistended. Bowel sounds are present. EXTREMITIES: No clubbing. No cyanosis. Peripheral pulses 2+ felt bilaterally. NEUROLOGIC: Patient is alert and oriented to person. He is mildly lethargic, but alert. Follows simple commands, oriented to person and place. Recall after 5 minutes is 0/3. Poor attention span. Slow thought process. Cranial nerves II through XII intact. Motor exam: Moves all extremities equally. No pronator drift seen. Sensory exam: Decreased light touch and pinprick up to the calves bilaterally. Decreased vibration of the toes. DTRs are 2+ throughout and 1 at both knees and ankles. Coordination: [id number] intact. No dysmetria noted. Gait is deferred for now. ASSESSMENT AND PLAN: This is a 52 year old man with past medical history of end stage renal disease, on hemodialysis Monday, Monday and Monday, last session on 07/24/2017, type 2 diabetes mellitus, diabetic peripheral neuropathy, chronic obstructive pulmonary disease, coronary artery disease, status post pacemaker, hypertension, coronary artery disease, status post stents, who presented to the emergency room for altered mental status; was feeling drowsy, sleepy and thirsty; was found on the floor, had some mild head trauma, but no acute intracranial abnormality seen on CAT scan. His blood sugar in the emergency room was 64 indicating some hypoglycemia. He was also taking Ambien. Besides, he has elevated BUN and creatinine, which is consistent with end stage renal disease. At this time, his altered mental status could be secondary to transient hypoglycemic event with underlying metabolic derangements. He also is generally deconditioned, has diabetic peripheral neuropathy on examination. At this time, we will recommend: 1. Keep blood sugars between 140 to 180. Avoid hypoglycemic events. 2. Keep his blood pressure between 130s to 140s systolic and diastolic 70s to 80s. 3. Aspirin 81 and Lipitor 40 for stroke prevention. 4. Physical therapy and occupational therapy evaluation, we will recommend rehabilitation for gait assessment and continue to monitor electrolytes and correct accordingly. Thank you for this consult. Mina Moreno MD [facility] # [id number]
[2017-07-26] VITALS: BMI 33.7
[2017-07-26] MEDS ORDERED: Albuterol-Ipratrop 3 mg / 0.5 (3 ml) UD IH STA (00:45)
--- NOTE | 2017-07-26 02:01 | HP ---
CHIEF COMPLAINT: Fall. HISTORY OF PRESENT ILLNESS: Mr. Jason Berger is a 52-year-old male with past medical history of COPD; coronary artery disease, pacemaker; end-stage renal disease, on hemodialysis 3 times a week; has diabetes mellitus type 2, insulin dependent, uncontrolled. Cardiac catheterization, cardiac stents, is brought to emergency room by EMS. The patient reports he currently feels sleepy and thirsty, states that he may have fallen out, but he is uncertain how. Actually, the patient do not has memory of what happened. Having left sided headache, likely due to possibly head trauma, SP fall. As per the patient's mother, the patient was found lying on the floor, however, mother is uncertain as to how the patient was there. This happened almost second time. The patient was noticed to having taken Ambien. The patient's current blood sugar level in the ER was 64. Denies any substance abuse, ethanol abuse. Does not take any Percocet or narcotics. However, the patient mostly takes Motrin for pain. PAST MEDICAL HISTORY: As above. History of hypertension; coronary artery disease; COPD; TIA; end-stage renal disease, on hemodialysis; diabetes mellitus, anemia, status post blood transfusion, heel ulcer, rule out osteomyelitis of the heel, anxiety. FAMILY HISTORY: Father and mother noncontributory. HABITS: Nonsmoker. No drugs, no ethanol. ALLERGIES: THE PATIENT IS ALLERGIC WITH INSULIN, MOXIFLOXACIN, PENICILLIN. HOME MEDICATIONS: Voltaren, Starlix, vitamin D, fenofibrate, multivitamins, Crestor, Zyrtec, hydralazine, metronidazole. REVIEW OF SYSTEMS: The patient is seen and examined at the bedside, sleepy, arousable, not complaining about any pain with me. No fever. No chills. The patient opens eye on command and at the same time closes. It is very hard to get review of systems. PHYSICAL EXAMINATION VITAL SIGNS: Temperature 98.1, pulse 53, respiratory rate 16, blood pressure 114/64, pulse oximetry 98. HEENT: Head, left posterior hematoma with laceration. Eyes, PERRLA. Extraocular muscles intact. Conjunctivae clear. Ears, there is blood in the external ear of left ear. Sight is normal. Mucous membrane moist. NECK: Supple. No carotid bruit. No JVD or thyromegaly. LUNGS: Clear to auscultation. Good air exchange. ABDOMEN: Soft, nontender, no organomegaly. EXTREMITIES: Lower extremity weakness due to past CVA baseline. NEUROLOGIC: The patient is sleepy, arousable, LABORATORY DATA: White blood cells 5, hemoglobin 9.2, hematocrit 29.5, platelets 82. Sodium 140, potassium 5.4, BUN 57, creatinine 7.4, glucose 141. ASSESSMENT AND PLAN: Mr. Jason Berger is a 52-year-old male with anemia; hyperkalemia; renal insufficiency, on hemodialysis; Insulin depended diabetes mellitus type 2, not very well controlled; hyperphosphatemia; hypermagnesemia; abnormal liver function tests; proteinuria; ketonuria; hematuria; urinary tract infection. Tox screen is positive for benzodiazepine. Maxillofacial, cervical spine and head CT done reviewed by me. Seen by neurologist, Dr. Mina Moreno. The patient has renal insufficiency, on hemodialysis 3 times a week; diabetic peripheral neuropathy; diabetic nephropathy; diabetic retinopathy; chronic obstructive pulmonary disease;coronary artery disease; status post pacemaker due to bradycardia; hypertension, came with altered mental status, was found on the floor by the mother. I saw him in the emergency room, still sleepy and thirsty, head trauma, has hematoma. The patient is generally deconditioned, monitor sugar very closely, monitor blood pressure very closely, given aspirin and Lipitor. Physical therapy and occupational therapy. Neurologist is recommending rehabilitation for gait assessment and continued monitoring of the gait. Appreciate neurologist's input. Gastrointestinal and deep venous thrombosis prophylaxis. Repeat labs. We will follow up. Diana Kessler MD
[2017-07-26] MEDS ORDERED: Oxycodone/Acetaminophen 5/325 mg Tab PO STA (04:22)
[2017-07-26] MEDS ORDERED: Vancomycin 2 GM in Sodium Chloride 0.9% 500 ML IVPB ONE (06:40)
--- NOTE | 2017-07-26 08:21 | CARD ---
APPROVED REPORT EKG Measurement Heart [id number] MI [id number] [id number] <Conclusion> Electronic ventricular pacemaker 100% AV paced.
[2017-07-26] MEDS ORDERED: Ergocalciferol 50,000 Intl Units Cap PO SCH (10:00)
[2017-07-26] MEDS ORDERED: Pantoprazole 40 mg EC Tab PO SCH (10:00)
[2017-07-26] MEDS ORDERED: Multivitamin With Minerals Tab PO SCH (10:00)
--- NOTE | 2017-07-26 11:35 | CT ---
PROCEDURE: CT HEAD WITHOUT CONTRAST. HISTORY: ams COMPARISON: 07/25/2017 TECHNIQUE: Axial computed tomography images were obtained through the head/brain without intravenous contrast. Radiation dose: Total exam DLP = 895 mGy-cm. This CT exam was performed using one or more of the following dose reduction techniques: Automated exposure control, adjustment of the mA and/or kV according to patient size, and/or use of iterative reconstruction technique. FINDINGS: HEMORRHAGE: No intracranial hemorrhage. BRAIN: No mass effect or edema. No atrophy or chronic microvascular ischemic changes. VENTRICLES: Unremarkable. No hydrocephalus. CALVARIUM: Unremarkable. PARANASAL SINUSES: Unremarkable as visualized. No significant inflammatory changes. MASTOID AIR CELLS: Unremarkable as visualized. No inflammatory changes. OTHER FINDINGS: None. IMPRESSION: No acute findings
[2017-07-26] MEDS: Insulin Reg-LOW-Coverage SC SCH ×2 (11:54→16:31)
[2017-07-26 11:55] LABS: HEMOGLOBIN 8.2 g/dL (14.0-18.0); MEAN CELL VOLUME 93.4 fl (80.0-105.0); MEAN CORPUSCULAR HEMOGLOBIN 30.1 pg (25.0-35.0); MEAN CORPUSCULAR HGB CONC 32.3 g/dl (31.0-37.0); MEAN PLATELET VOLUME 12.4 fl (7.0-11.0); RBC 2.72 10^6/uL (3.5-6.1); WHITE BLOOD COUNT 4.6 10^3/ul (4.5-11.0)
[2017-07-26] MEDS: SALMETEROL XINAFOATE IH SCH ×2 (11:55→18:05)
[2017-07-26] MEDS: EPA PO SCH ×2 (11:55→18:05)
[2017-07-26] MEDS: OMEGA PO SCH ×2 (11:55→18:05)
[2017-07-26] MEDS: DHA PO SCH ×2 (11:55→18:05)
[2017-07-26] MEDS: FISH OIL PO SCH ×2 (11:55→18:05)
[2017-07-26] MEDS: FLUTICASO IH SCH ×2 (11:55→18:05)
[2017-07-26 12:29] LABS: ALBUMIN 3.8 g/dL (3.0-4.8); CALCIUM 8.5 mg/dL (8.4-10.5)
--- NOTE | 2017-07-26 14:47 | CP.PCM.CON ---
History of Present Illness - History of Present Illness History of Present Illness: 52 year old male with PMH of COPD, history of bilateral HCAP, history of sepsis with gastroenteritis and C. diff. associated diarrhea, ESRD on HD, DM, obesity with BMI 34, CAD S/P PCI, retinopathy, history of pancreatitis was brought in to [facility] after he was found on the floor by his mother and apparently injured part of his face in the process. He apparently felt like fainting and fell to the floor. The patient is currently awake and not in distress, doing dialysis. He was found to have low blood sugar in the ED. He has no fever or chills, no nausea or vomiting, no chest pain, no sore throat, no cough or colds, no diarrhea, no abdominal pain, no diarrhea, no dysuria. Patient was diagnosed with chronic osteomyelitis of the left foot on previous admission and Infectious Diseases consult is requested to further evaluate and manage. Review of Systems - Review of Systems All systems: reviewed and no additional remarkable complaints except (as per HPI ) Past Patient History - Infectious Disease Hx of Infectious Diseases: None - Tetanus Immunizations Tetanus Immunization: Up to Date - Past Medical History & Family History Past Medical History?: Yes - Past Social History Smoking Status: Never Smoked - CARDIAC Hx Cardiac Disorders: Yes (CAD) Hx Angina: No Hx Cardia Arrhythmia: No Hx Hypercholesterolemia: Yes Hx Hypertension: Yes Hx Pacemaker: Yes - PULMONARY Hx Respiratory Disorders: Yes Hx Asthma: Yes Hx Bronchitis: Yes Hx Chronic Obstructive Pulmonary Disease (COPD): Yes Hx Pneumonia: Yes Hx Respiratory Tract Infection: Yes Hx Sleep Apnea: Yes (c pap 2) - NEUROLOGICAL Hx Neurological Disorder: Yes Hx Dizziness: Yes Hx Transient Ischemic Attacks (TIA): Yes - HEENT Hx HEENT Problems: Yes (BILATERAL EYE WITH BLURRY VISION) Hx Cataracts: Yes (HAD SX 05/29/12) Hx Epistaxis: Yes Other/Comment: left eye cornea transplant,RENAL RETINOPATHY ou , glasses - RENAL Hx Chronic Kidney Disease: Yes Hx Dialysis: Yes (m w ) Hx Renal Failure: Yes (ESRD (on hemodialysis 3x/wk)) - ENDOCRINE/METABOLIC Hx Endocrine Disorders: Yes Hx Diabetes Mellitus Type 2: Yes - HEMATOLOGICAL/ONCOLOGICAL Hx Blood Disorders: Yes Hx Anemia: Yes (With transfusions) Hx Cancer: No - INTEGUMENTARY Hx Dermatological Problems: Yes (BILATERAL EDEMA TO UPPER AND LE,SKIN DRYNESS) - MUSCULOSKELETAL/RHEUMATOLOGICAL Hx Musculoskeletal Disorders: Yes Hx Arthritis: Yes Hx Back Pain: Yes Hx Falls: Yes Hx Fractures: Yes (L arm) Hx Spinal Stenosis: Yes - GASTROINTESTINAL Hx Gastrointestinal Disorders: Yes Hx Gastroesophageal Reflux: Yes Hx Ulcer: Yes - GENITOURINARY/GYNECOLOGICAL Hx Genitourinary Disorders: Yes (esrd on HD MWF) - PSYCHIATRIC Hx Psychophysiologic Disorder: Yes Hx Anxiety: Yes - SURGICAL HISTORY Hx Surgeries: Yes Hx Cardiac Catheterization: Yes Hx Cholecystectomy: Yes (08/15/12) Hx Coronary Stent: Yes (4 stints) Other/Comment: FISTULA/pacemaker 2 weeks ago, L cornea transplant - ANESTHESIA Hx Anesthesia: Yes Hx Anesthesia Reactions: No Hx Malignant Hyperthermia: No Meds Allergies/Adverse Reactions: Allergies Allergy/AdvReac Type Severity Reaction Status Date / Time insulin aspart [From Novolog] Allergy Intermediate ITCHING Verified 07/21/17 01: 26 moxifloxacin Allergy Intermediate ITCHING Verified 07/21/17 01:26 Penicillins Allergy Intermediate ITCHING Verified 07/21/17 01:26 - Medications Medications: Current Medications Acetaminophen (Tylenol 325mg Tab) 650 mg PO Q4H PRN PRN Reason: Fever >100.5 F Ondansetron HCl (Zofran Inj) 4 mg IVP Q4H PRN PRN Reason: Nausea/Vomiting Physical Exam - Constitutional Appears: Chronically Ill - Head Exam Head Exam: NORMAL INSPECTION - Respiratory Exam Respiratory Exam: Decreased Breath Sounds - Cardiovascular Exam Cardiovascular Exam: +S1, +S2 - GI/Abdominal Exam GI & Abdominal Exam: Soft. absent: Tenderness Results - Vital Signs Recent Vital Signs: Last Vital Signs Temp 97.5 F L 07/26/17 04:15 Pulse 63 07/26/17 04:15 Resp 20 07/26/17 04:15 BP 123/49 L 07/26/17 04:15 Pulse Ox 98 07/26/17 04:15 - Labs Result Diagrams: 07/26/17 11:40 07/26/17 11:40 Labs: Laboratory Results - last 24 hr 07/25/17 07/25/17 07/25/17 17:20 17:20 18:01 POC Glucose (mg/dL) 218 H Urine Color Mary Urine Appearance Clear Urine pH 5.5 Ur Specific [place] >= 1.030 Urine Protein >=300 H Urine Glucose (UA) 100 H Urine Ketones Trace H Urine Blood Moderate H Urine Nitrate Positive H Urine Bilirubin Small H Urine Urobilinogen 0.2 Ur Leukocyte Esterase Trace H Urine RBC 20 - 25 Urine WBC 2 - 5 Ur Epithelial Cells 6 - 8 Amorphous Sediment Trace Urine Bacteria Trace Urine Opiates Screen Negative Urine Methadone Screen Negative Ur Barbiturates Screen Negative Ur Phencyclidine Scrn Negative Ur Amphetamines Screen Negative U Benzodiazepines Scrn Positive U Oth Cocaine Metabols Negative U Cannabinoids Screen Negative 07/25/17 21:11 POC Glucose (mg/dL) 141 H Urine Color Urine Appearance Urine pH Ur Specific [place] Urine Protein Urine Glucose (UA) Urine Ketones Urine Blood Urine Nitrate Urine Bilirubin Urine Urobilinogen Ur Leukocyte Esterase Urine RBC Urine WBC Ur Epithelial Cells Amorphous Sediment Urine Bacteria Urine Opiates Screen Urine Methadone Screen Ur Barbiturates Screen Ur Phencyclidine Scrn Ur Amphetamines Screen U Benzodiazepines Scrn U Oth Cocaine Metabols U Cannabinoids Screen Assessment & Plan - Assessment and Plan (Free Text) Plan: Assessment Chronic osteomyelitis 2nd metatarsal head on the left, seen on CT leg, grew MSSA from wound cx syncope, probably metabolic history of bilateral healthcare-associated pneumonia history of sepsis with gastroenteritis and C. diff. associated diarrhea ESRD on HD DM obesity CAD S/P PCI retinopathy history of pancreatitis COPD Plan patient was previously advised to take Levaquin for 7 days by Podiatry but since patient has allergy to Avelox, will switch to Vancomycin qHD for 2 weeks with outpatient follow up with Podiatry (Will give a dose of 2 gm IV vancomycin today, then 500 mg qHD - nurse practitioner Claudia Reina is arranging for this to be given during dialysis) - on Podiatry evaluation as an outpatient, it will be determined if he needs further antibiotics - discussed this with patient and patient understands that the 2 weeks may not be enough and it will be determined as an outpatient
[2017-07-26] MEDS: Albuterol-Ipratrop 3 mg / 0.5 (3 ml) UD IH SCH ×2 (15:48→20:10)
--- NOTE | 2017-07-26 18:06 | CP.PCM.CON ---
History of Present Illness - History of Present Illness History of Present Illness: 52M well known to our service seen at bedside for healing ulceration of left foot and healing heel fissure of right foot. Patient was discharged from the hospital earlier this week and states that he has been walking around at home with no dressings in his slippers. He denies any new complaints to either foot as well as any malodor, periwound erythema, drainage or other clinical signs of infection. He states that the reason for his latest admission to the hospital was due to falling out of bed after taking too much Ambien and hitting his head. Patient denies any further pedal complaints at this time. He is AAO x 3 and NAD at time of visit. Denies any recent N/V/F/C/CP/SOB/D/posterior calf pain when squeezed Review of Systems - Review of Systems All systems: reviewed and no additional remarkable complaints except Review of Systems: as per HPI Past Patient History - Infectious Disease Hx of Infectious Diseases: None - Tetanus Immunizations Tetanus Immunization: Up to Date - Past Medical History & Family History Past Medical History?: Yes - Past Social History Smoking Status: Never Smoked - CARDIAC Hx Cardiac Disorders: Yes (CAD) Hx Angina: No Hx Cardia Arrhythmia: No Hx Hypercholesterolemia: Yes Hx Hypertension: Yes Hx Pacemaker: Yes - PULMONARY Hx Respiratory Disorders: Yes Hx Asthma: Yes Hx Bronchitis: Yes Hx Chronic Obstructive Pulmonary Disease (COPD): Yes Hx Pneumonia: Yes Hx Respiratory Tract Infection: Yes Hx Sleep Apnea: Yes (c pap 2) - NEUROLOGICAL Hx Neurological Disorder: Yes Hx Dizziness: Yes Hx Transient Ischemic Attacks (TIA): Yes - HEENT Hx HEENT Problems: Yes (BILATERAL EYE WITH BLURRY VISION) Hx Cataracts: Yes (HAD SX 05/29/12) Hx Epistaxis: Yes Other/Comment: left eye cornea transplant,RENAL RETINOPATHY ou , glasses - RENAL Hx Chronic Kidney Disease: Yes Hx Dialysis: Yes (m w ) Hx Renal Failure: Yes (ESRD (on hemodialysis 3x/wk)) - ENDOCRINE/METABOLIC Hx Endocrine Disorders: Yes Hx Diabetes Mellitus Type 2: Yes - HEMATOLOGICAL/ONCOLOGICAL Hx Blood Disorders: Yes Hx Anemia: Yes (With transfusions) Hx Cancer: No - INTEGUMENTARY Hx Dermatological Problems: Yes (BILATERAL EDEMA TO UPPER AND LE,SKIN DRYNESS) - MUSCULOSKELETAL/RHEUMATOLOGICAL Hx Musculoskeletal Disorders: Yes Hx Arthritis: Yes Hx Back Pain: Yes Hx Falls: Yes Hx Fractures: Yes (L arm) Hx Spinal Stenosis: Yes - GASTROINTESTINAL Hx Gastrointestinal Disorders: Yes Hx Gastroesophageal Reflux: Yes Hx Ulcer: Yes - GENITOURINARY/GYNECOLOGICAL Hx Genitourinary Disorders: Yes (esrd on HD MWF) - PSYCHIATRIC Hx Psychophysiologic Disorder: Yes Hx Anxiety: Yes - SURGICAL HISTORY Hx Surgeries: Yes Hx Cardiac Catheterization: Yes Hx Cholecystectomy: Yes (08/15/12) Hx Coronary Stent: Yes (4 stints) Other/Comment: FISTULA/pacemaker 2 weeks ago, L cornea transplant - ANESTHESIA Hx Anesthesia: Yes Hx Anesthesia Reactions: No Hx Malignant Hyperthermia: No Meds Home Medications: Home Medication List Medication Instructions Recorded Confirmed Type ALPRAZolam [Xanax] 0.25 mg PO HS PRN #90 tab 07/26/17 Rx Vancomycin 500mg in NS 500 mg IVPB MWF 14 Days #14 bag 07/26/17 Rx Allergies/Adverse Reactions: Allergies Allergy/AdvReac Type Severity Reaction Status Date / Time insulin aspart [From Novolog] Allergy Intermediate ITCHING Verified 07/21/17 01: 26 moxifloxacin Allergy Intermediate ITCHING Verified 07/21/17 01:26 Penicillins Allergy Intermediate ITCHING Verified 07/21/17 01:26 - Medications Medications: Current Medications Acetaminophen (Tylenol 325mg Tab) 650 mg PO Q4H PRN PRN Reason: Fever >100.5 F Albuterol/Ipratropium (Duoneb 3 Mg/0.5 Mg (3 Ml) Ud) 3 ml IH [id number] [facility] Last Admin: 07/26/17 15:48 Dose: Not Given Aspirin (Ecotrin) 81 mg PO DAILY [facility] Last Admin: 07/26/17 16:30 Dose: 81 mg Atorvastatin Calcium (Lipitor) 40 mg PO DIN [facility] Calcium Acetate (Phoslo) 1,334 mg PO ACTID [facility] Last Admin: 07/26/17 16:38 Dose: 1,334 mg Ergocalciferol (Drisdol 50,000 Intl Units Cap) 1 cap PO WED [facility] Last Admin: 07/26/17 16:29 Dose: 1 cap Fenofibrate (Tricor) 145 mg PO DAILY [facility] Last Admin: 07/26/17 16:37 Dose: 145 mg Hydralazine HCl (Apresoline) 20 mg PO BID [facility] Last Admin: 05/09/18 11:55 Dose: Not Given Insulin Human Regular (Humulin R Low) 0 units SC ACHS [facility] PRN Reason: Protocol Last Admin: 07/26/17 16:31 Dose: Not Given Latanoprost (Xalatan Opht) 0 ml OU HS [facility] Loratadine (Claritin) 10 mg PO DAILY [facility] Last Admin: 07/26/17 16:29 Dose: 10 mg Montelukast Sodium (Singulair) 10 mg PO HS [facility] Multivitamins/Minerals (Therapeutic-M Tab) 1 tab PO DAILY [facility] Last Admin: 07/26/17 16:37 Dose: 1 tab [place]-3s/Dha/Epa/Fish Oil (Home Med) 2 cap PO BID [facility] Last Admin: 07/26/17 11:55 Dose: Not Given Non-Formulary Medication (Salmeterol Xinafoate/Fluticaso [Advair Hfa 230-21]) 1 puff IH BID [facility] Last Admin: 07/26/17 11:55 Dose: Not Given Ondansetron HCl (Zofran Inj) 4 mg IVP Q4H PRN PRN Reason: Nausea/Vomiting Pantoprazole Sodium (Protonix Ec Tab) 40 mg PO DAILY [facility] Last Admin: 07/26/17 16:33 Dose: 40 mg Pregabalin (Lyrica) 50 mg PO HS [facility] Sodium Chloride ([place] Nasal [place]) 0 ml NS Q2H PRN PRN Reason: Nasal congestion Tamsulosin HCl (Flomax) 0.4 mg PO DAILY [facility] Last Admin: 07/26/17 16:30 Dose: 0.4 mg Ticagrelor (Brilinta) 90 mg PO BID [facility] Last Admin: 07/26/17 11:55 Dose: Not Given Physical Exam - Constitutional Appears: Well, Non-toxic, No Acute Distress - Head Exam Head Exam: ATRAUMATIC, NORMOCEPHALIC - Eye Exam Eye Exam: EOMI, PERRL - ENT Exam ENT Exam: Mucous Membranes Moist, Normal Exam - Neck Exam Neck exam: Positive for: Full Rom. Negative for: Tenderness - Respiratory Exam Respiratory Exam: NORMAL BREATHING PATTERN. absent: Respiratory Distress - Extremities Exam Additional comments: Lower extremity focused exam: Vasc: DP/PT pulses palpable 2/4. CFT < 3 sec to all digits. No pedal edema noted. Temperature gradient warm to cool Derm: Open ulceration measuring approx 0.6cm x 0.6cm x 0.1cm noted to level of plantar first metatarsal head. No malodor, no uriel-wound erythema, no fluctuance , no drainage, no tunneling, no probe to bone or undermining. No sinus tract formation in any direction. No other clinic signs of infection. Linear skin fissures noted to right posterior heel. No malodor, no uriel-wound erythema, no fluctuance, no drainage, no tunneling, no probe to bone or undermining. Neuro: Epicritic and protective sensation grossly absent b/l Ortho: No tenderness to palpation of left foot sub met 1 ulceration or right heel fissure. No other gross deformities noted - Back Exam Back exam: absent: CVA tenderness (L), CVA tenderness (R) - Neurological Exam Neurological exam: Alert, Oriented x3 - Psychiatric Exam Psychiatric exam: Normal Affect, Normal Mood Results - Vital Signs Recent Vital Signs: Last Vital Signs Temp 98.0 F 07/26/17 06:00 Pulse 62 07/26/17 16:00 Resp 18 07/26/17 06:00 BP 160/57 H 07/26/17 16:00 Pulse Ox 98 07/26/17 06:00 - Labs Result Diagrams: 07/26/17 11:40 07/26/17 11:40 Labs: Laboratory Results - last 24 hr 07/25/17 07/25/17 07/25/17 17:20 17:20 18:01 WBC RBC Hgb Hct MCV MCH MCHC RDW Plt Count MPV Sodium Potassium Chloride Carbon Dioxide Anion Gap BUN Creatinine Est GFR ( Amer) Est GFR (Non-Af Amer) POC Glucose (mg/dL) 218 H Random Glucose Calcium Phosphorus Magnesium Total Bilirubin AST ALT Alkaline Phosphatase Total Protein Albumin Globulin Albumin/Globulin Ratio Urine Color Mary Urine Appearance Clear Urine pH 5.5 Ur Specific [place] >= 1.030 Urine Protein >=300 H Urine Glucose (UA) 100 H Urine Ketones Trace H Urine Blood Moderate H Urine Nitrate Positive H Urine Bilirubin Small H Urine Urobilinogen 0.2 Ur Leukocyte Esterase Trace H Urine RBC 20 - 25 Urine WBC 2 - 5 Ur Epithelial Cells 6 - 8 Amorphous Sediment Trace Urine Bacteria Trace Urine Opiates Screen Negative Urine Methadone Screen Negative Ur Barbiturates Screen Negative Ur Phencyclidine Scrn Negative Ur Amphetamines Screen Negative U Benzodiazepines Scrn Positive U Oth Cocaine Metabols Negative U Cannabinoids Screen Negative 07/25/17 07/26/17 07/26/17 21:11 07:21 11:40 WBC 4.6 RBC 2.72 L Hgb 8.2 L Hct 25.4 L MCV 93.4 MCH 30.1 MCHC 32.3 RDW 18.0 H Plt Count 69 L MPV 12.4 H Sodium Potassium Chloride Carbon Dioxide Anion Gap BUN Creatinine Est GFR ( Amer) Est GFR (Non-Af Amer) POC Glucose (mg/dL) 141 H 98 Random Glucose Calcium Phosphorus Magnesium Total Bilirubin AST ALT Alkaline Phosphatase Total Protein Albumin Globulin Albumin/Globulin Ratio Urine Color Urine Appearance Urine pH Ur Specific [place] Urine Protein Urine Glucose (UA) Urine Ketones Urine Blood Urine Nitrate Urine Bilirubin Urine Urobilinogen Ur Leukocyte Esterase Urine RBC Urine WBC Ur Epithelial Cells Amorphous Sediment Urine Bacteria Urine Opiates Screen Urine Methadone Screen Ur Barbiturates Screen Ur Phencyclidine Scrn Ur Amphetamines Screen U Benzodiazepines Scrn U Oth Cocaine Metabols U Cannabinoids Screen 07/26/17 11:40 WBC RBC Hgb Hct MCV MCH MCHC RDW Plt Count MPV Sodium 140 Potassium 5.2 H Chloride 96 L Carbon Dioxide 25 Anion Gap 24 H BUN 69 H Creatinine 9.3 H* D Est GFR ( Amer) 7 Est GFR (Non-Af Amer) 6 POC Glucose (mg/dL) Random Glucose 194 H Calcium 8.5 Phosphorus 8.0 H Magnesium 2.4 H Total Bilirubin 0.9 AST 102 H ALT 51 Alkaline Phosphatase 46 Total Protein 7.6 Albumin 3.8 Globulin 3.8 Albumin/Globulin Ratio 1.0 L Urine Color Urine Appearance Urine pH Ur Specific [place] Urine Protein Urine Glucose (UA) Urine Ketones Urine Blood Urine Nitrate Urine Bilirubin Urine Urobilinogen Ur Leukocyte Esterase Urine RBC Urine WBC Ur Epithelial Cells Amorphous Sediment Urine Bacteria Urine Opiates Screen Urine Methadone Screen Ur Barbiturates Screen Ur Phencyclidine Scrn Ur Amphetamines Screen U Benzodiazepines Scrn U Oth Cocaine Metabols U Cannabinoids Screen Assessment & Plan - Assessment and Plan (Free Text) Assessment: 52M seen for plantar ulceration of left foot and heel fissure of right foot, both clinically uninfected Plan: Patient seen and evaluated Plan discussed with attending Dr. Villanueva Charts, labs, vitals reviewed Afebrile, absent leukocytosis Wounds dressed with maxorb, Optifoam Patient instructed to wear surgical shoes at all times during ambulation Patient to follow up in wound care center following discharge Podiatry will continue to follow while patient in house - Date & Time Date: 07/26/17 Time: 15:35
[2017-07-26 18:07] VITALS: BP 160/53
[2017-07-26 20:06] VITALS: PULSE 63; RESP 20; TEMP 98.7; O2SAT 100
[2017-07-26] MEDS ORDERED: Latanoprost 2.5 ml Opht Soln OU SCH (22:00)
--- NOTE | 2017-07-27 00:10 | CON ---
DATE: 07/26/2017 REASON FOR CONSULTATION: Need for dialysis, syncopal episode? HISTORY OF PRESENT ILLNESS: A 52-year-old male well known to me from multiple evaluations, outpatient dialysis. The patient was just discharged on Monday. He presented to the emergency room yesterday, he was found unresponsive on the floor by his mother. He was bleeding from a wound on his scalp. Currently, the patient is seen in the dialysis unit. He is awake. He is alert. He thinks he might have fallen secondary to Ambien reaction, but he was found to be hypoglycemic at the time of presentation. His blood sugar was found to be 60. He denies any chest pain. He denies any shortness of breath. He denies any fevers, chills. In the emergency room, he was found to be normotensive. Blood pressure was 148/64, heart rate was 63. He was afebrile. Blood work showed elevated potassium of 5.4, glucose was found to be 64. PAST MEDICAL AND SURGICAL HISTORY: NIDDM, hypertension, ESRD, CAD, PTCA and stent, recent pacemaker placement, anemia of chronic kidney disease, diabetic neuropathy, diabetic nephropathy, secondary hyperparathyroidism, anxiety. FAMILY HISTORY: Hypertension and diabetes, ESRD. SOCIAL HISTORY: No smoking, no alcohol use, no IV drug abuse. ALLERGIES: INSULIN, MOXIFLOXACIN, PENICILLIN. CURRENT MEDICATIONS: Apresoline 20 b.i.d., Brilinta, Claritin, Drisdol, DuoNeb, Ecotrin, Flomax, insulin, Lipitor, Lyrica 50 every bedtime, PhosLo, Tricor, Xalatan, Zofran. ASSESSMENT: 1. Syncope/fall. 2. Mild hyperkalemia. 3. Hypoglycemia. 4. History of noninsulin-dependent diabetes mellitus. 5. Hypertension. 6. End-stage renal disease. PLAN: 1. Lower insulin N to 70 units every bedtime. 2. Consider discontinuation of Starlix. 3. Discontinue Ambien. 4. Dialysis today. 5. Xanax 0.25 every bedtime for sleep. 6. Close outpatient followup. Eva Malcolm MD [facility] # [id number]
== END 2017-07-26 21:36 | disposition home or self-care (01) ==
LOC: ED 13:03 → ERH 16:42 → 3RNO 20:41
PROVIDERS: ADMIT Internal Medicine; ATTEND Internal Medicine
DX: E11.649 Type 2 diabetes mellitus with hypoglycemia without coma (principal); S09.90XA Unspecified injury of head, initial encounter; M50.322 Other cervical disc degeneration at C5-C6 level; N18.6 End stage renal disease; J44.9 Chronic obstructive pulmonary disease, unspecified; I25.10 Atherosclerotic heart disease of native coronary artery without angina pectoris; E11.22 Type 2 diabetes mellitus with diabetic chronic kidney disease; E87.5 Hyperkalemia; E11.42 Type 2 diabetes mellitus with diabetic polyneuropathy; E11.319 Type 2 diabetes mellitus with unspecified diabetic retinopathy without macular edema; E11.21 Type 2 diabetes mellitus with diabetic nephropathy; M86.672 Other chronic osteomyelitis, left ankle and foot; L97.529 Non-pressure chronic ulcer of other part of left foot with unspecified severity; Z99.2 Dependence on renal dialysis; Z79.4 Long term (current) use of insulin; E11.621 Type 2 diabetes mellitus with foot ulcer; N25.81 Secondary hyperparathyroidism of renal origin; D63.1 Anemia in chronic kidney disease; F41.9 Anxiety disorder, unspecified; E11.69 Type 2 diabetes mellitus with other specified complication; K21.9 Gastro-esophageal reflux disease without esophagitis; E83.41 Hypermagnesemia; E83.39 Other disorders of phosphorus metabolism; E66.9 Obesity, unspecified; Z68.34 Body mass index [BMI] 34.0-34.9, adult; W19.XXXA Unspecified fall, initial encounter; Y92.009 Unspecified place in unspecified non-institutional (private) residence as the place of occurrence of the external cause; Z86.73 Personal history of transient ischemic attack (TIA), and cerebral infarction without residual deficits; Z95.0 Presence of cardiac pacemaker; Z95.5 Presence of coronary angioplasty implant and graft
CPT/HCPCS: 36415; 70450; 70486; 71045; 72125; 80053; 81001; 82803; 82948; 83735; 84100; 84484; 85025; 85027; 85610; 85730; 87040; 87086; 90999; 93005; 94640; 96365; 96375; 99285; G0257; G0378; G0480; J7040

== ENCOUNTER 2017-08-08 13:58 | Inpatient (IN) | payer MEDICARE, OTHER ==
[2017-08-08 14:20] VITALS: BMI 33.9
--- NOTE | 2017-08-08 15:08 | ED PDOC ---
Arrival/HPI - General Chief Complaint: Trauma Time Seen by Provider: 08/08/17 14:32 Historian: Patient - History of Present Illness Narrative History of Present Illness (Text): 08/08/17 15:08 52 year old male, with past medical history of COPD, CAD, cardiac catherization , coronary stents x 2, pacemaker, ESRD on hemodialysis (M/W/F), diabetes, and hypertension, presents to the Emergency Department s/p accidental trip and fall while at the dialysis unit today, which prompted him to be evaluated at the Emergency Department. pt states he has been falling frequently over the last 1- 2 weeks, and has fallen x 2 episodes yesterday, did not seek medical evaluation however; pt states he missed yesterday's dialysis due to oversleeping; additionally, Patient informs he has had intermittent episodes of right nose bleed today, as well as gait changes for past few days with difficulty walking at times and frequently falling. Patient currently denies any syncope, pre/post fall, fever, chills, chest pain, shortness of breath, palpitations, abdominal pain, nausea, vomiting, numbness/tingling, urinary/bowel changes/complaints, loss of consciousness, blanco, trauma, sick contact, travel or any other complaints. Patient presents to the Emergency Department for medical evaluation. pt currently felt improved pt denied other complaints PMD: Dr. Kessler Product Mgmt Dev Manager: Dr Malcolm Procurement Officer: Dr. Erickson Time/Duration: Prior to Arrival Symptom Onset: Gradual Symptom Course: Unchanged Activities at Onset: Other (Trip and fall) Context: Other (Dialysis unit) Past Medical History - Provider Review Nursing Documentation Reviewed: Yes - Travel History Have you recently traveled outside [place] w/in the past 3 mons?: No - Past History Past History: No Previous - Infectious Disease Hx of Infectious Diseases: None - Tetanus Immunization Tetanus Immunization: Up to Date - Reproductive Currently Lactating: No - Cardiac Hx Cardiac Disorders: Yes (CAD) Hx Hypertension: Yes - Pulmonary Hx Chronic Obstructive Pulmonary Disease (COPD): Yes - Neurological Hx Transient Ischemic Attacks (TIA): Yes - HEENT Hx HEENT Disorder: Yes (BILATERAL EYE WITH BLURRY VISION) Hx Cataracts: Yes (HAD SX 05/29/12) Other/Comment: left eye cornea transplant,RENAL RETINOPATHY, glasses - Renal Hx Renal Failure: Yes (ESRD (on hemodialysis 3x/wk)) - Endocrine/Metabolic Hx Diabetes Mellitus Type 2: Yes - Hematological/Oncological Hx Anemia: Yes (With transfusions) - Integumentary Hx Dermatological Disorder: Yes (BILATERAL EDEMA TO UPPER AND LE,SKIN DRYNESS) - Musculoskeletal/Rheumatological Hx Arthritis: Yes - Gastrointestinal Hx Gastrointestinal Disorders: No - Genitourinary/Gynecological Hx Genitourinary Disorders: Yes (esrd on HD MWF) - Psychiatric Hx Psychophysiologic Disorder: No Hx Anxiety: Yes Hx Substance Use: No - Surgical History Hx Cardiac Catheterization: Yes Hx Cholecystectomy: Yes (08/15/12) Hx Coronary Stent: Yes (x2 monday06/13/17) Other/Comment: FISTULA/pacemaker 2 weeks ago - Anesthesia Hx Anesthesia: Yes Hx Anesthesia Reactions: No Hx Malignant Hyperthermia: No - Suicidal Assessment Feels Threatened In Home Enviroment: No Family/Social History - Physician Review Nursing Documentation Reviewed: Yes Family/Social History: No Known Family HX Smoking Status: Never Smoked Hx Alcohol Use: No Hx Substance Use: No Hx Substance Use Treatment: No Allergies/Home Meds Allergies/Adverse Reactions: Allergies insulin aspart [From Novolog] Allergy (Intermediate, Verified 07/21/17 01:26) ITCHING ANY INSULIN THAT STARTS WITH NOV- moxifloxacin Allergy (Intermediate, Verified 07/21/17 01:26) ITCHING Penicillins Allergy (Intermediate, Verified 07/21/17 01:26) ITCHING Home Medications: Home Meds Medication Instructions Recorded Confirmed Diclofenac Sodium [Voltaren] 1 appl TOP DAILY 06/14/17 08/08/17 Nateglinide [Starlix] 1 tab PO HS 06/14/17 08/08/17 Ergocalciferol (Vitamin D2) 50,000 unit PO WED 06/16/17 08/08/17 [Vitamin D2] Fenofibrate [Triglide] 160 mg PO DAILY 06/16/17 08/08/17 Multivitamin with Iron 1 each PO DAILY 06/16/17 08/08/17 [Multivitamins with Iron] [place]-3S/Dha/Epa/Fish Oil [Fish 2 cap PO BID 06/16/17 08/08/17 Oil [place]-3 Softgel] Bimatoprost [Lumigan] 1 drp OU HS 07/05/17 08/08/17 Cetirizine HCl [Zyrtec] 10 mg PO DAILY 07/05/17 08/08/17 Insulin Regular [HumuLIN R] 90 units SC ACB 07/05/17 08/08/17 Insulin Regular [HumuLIN R] 90 units SC ACD 07/05/17 08/08/17 Insulin Human NPH [Humulin N] 70 units SC ACD 07/05/17 08/08/17 Insulin Human NPH [Humulin N] 80 units SC ACB 07/05/17 08/08/17 Salmeterol Xinafoate/Fluticaso 1 puff IH BID 07/05/17 08/08/17 [Advair Hfa 230-21] hydrALAZINE [Apresoline] 20 mg PO BID 07/05/17 08/08/17 metroNIDAZOLE 0.75% [Metrogel 1 applic TOP DAILY PRN 07/05/17 08/08/17 Cream] Calcium Acetate [Phoslo] 1,334 mg PO ACTID 07/21/17 08/08/17 Pregabalin [Lyrica] 50 mg PO HS 07/25/17 08/08/17 Review of Systems - Physician Review All systems were reviewed & negative as marked: Yes - Review of Systems Constitutional: Normal. absent: Fevers Eyes: Normal ENT: Epistaxis Respiratory: Normal. absent: SOB Cardiovascular: Normal. absent: Chest Pain, Palpitations Gastrointestinal: Normal. absent: Abdominal Pain, Diarrhea, Nausea, Vomiting Genitourinary Male: Normal. absent: Urinary Output Changes Musculoskeletal: Normal. absent: Arthralgias Skin: Normal. absent: Rash Neurological: Normal. absent: Headache, Dizziness Endocrine: Normal Hemo/Lymphatic: Normal Psychiatric: Normal Physical Exam - Physical Exam Narrative Physical Exam (Text): 08/08/17 15:18 General: alert/awake, GCS = 15, oriented x 3, sitting on exam bed; NAD, comfortable, cooperative, follows command with ease Head: NC/AT; no traumatic mcmanus noted EYE: PERRLA, EOMI, sclera anicteric, no nystagmus, no photophobia; visual field intact b/l Facial: WNL NOSE: Dry scabs with dry blood noted at the entrance of the right nare; no foreign body, no masses, no lesion, no occlusion/ulceration noted. No septal hematoma noted bilaterally. Oral: uvula/tongue are midline, no exudate/lesions, no drooling/stridor, no dysphonia; fair dentitions; moist oral mucosa NECK: intact ROM, no midline tenderness, no nuchal rigidity, no meningeal signs ; no step-off Chest: CTA b/l, no w/r/r; no tachypenia, no accessory muscle use noted Cardiac: +S1, +S2, no m/r/r Abdominal: +BS, soft/nd/nt, well nourished patient; no masses/rebound/guarding/ rigidity; no alfaro's sign, no mcburney's point tenderness Extremities: intact ROM, strength 5/5 grossly intact in all limbs, neurovasc intact b/l; + b/l arm/leg pitting edema noted +1-2/5, no renny's sign noted b/l BACK: no step off, no midline tenderness, NO crepitus, no gross deformities noted; Intact ROM; SKIN: cap refill ~ 1 sec, no ulcerations, no petechiae, no rashes; mild pallor noted NEURO: CNII-XII WNL, no facial asymmetries, no slurr speech, oriented x 3 NIH stroke scale ~ 0 Psych: normal insight, normal affect; follows command with ease Vital Signs Reviewed: Yes Vital Signs Temp Pulse Resp BP Pulse Ox 08/08/17 21:09 98 F 61 18 113/53 L 100 08/08/17 18:44 60 18 117/58 L 95 08/08/17 15:03 97.8 F 66 18 100/39 L 100 08/08/17 14:05 97.7 F 65 18 105/62 100 Temperature: Afebrile Blood Pressure: Normal Pulse: Regular Respiratory Rate: Normal Appearance: Positive for: Well-Appearing, Non-Toxic, Comfortable, Other (alert/ awake, GCS = 15, oriented x 3, NAD, cooperative, comfortable) Pain Distress: None Mental Status: Positive for: Alert and Oriented X 3 - Systems Exam Head: Present: Atraumatic, Normocephalic Medical Decision Making ED Course and Treatment: 08/08/17 15:10 Impression: 52 year old male presents to the Emergency Department s/p fall and nosebleed. I have considered all of the differential diagnostics regarding patient's chief medical complaints/ clinical findings, including but not limited to: 1) frequent falls/ambulatory changes; 2) intermittent epistaxis; 3) missed dialysis Plan: -- CT of Head -- EKG -- Labs -- Chest X-ray -- Reassess and disposition Progress Notes: pt remained comfortable, at mental status baseline pt is awaiting diagnostics/labs pt is awaiting final disposition 08/08/17 18:10: Spoke to Dr. Kessler who is at bedside evaluating patient. She has been made aware of emergency department management and diagnostics. She notes that if patient can receive dialysis in the emergency department for a few hours, he is able to be discharged home and then to return to dialysis in the morning to complete his dialysis. Spoke to dialysis nurse Ce? She was made aware and states that she will be able to be at the patient's bedside to dialyze him (in the Emergency department) . Patient will be able to be discharged home if dialyzed in the emergency department. Plan discussed with the patient who is very agreeable to the recommendation to be partially dialyzed in the emergency department. He is aware that he MUST return to his dialysis appointment tomorrow morning to continue his dialysis. Patient was instructed also to not take any benzodiazepines or sleeping medications by myself and Dr. Kessler. pt is currently receiving bedside dialysis due to abnl CT head findings, will recommend patient for admission 08/08/17 19:49: Case discussed in detail with Dr. Kessler who was made aware. Agrees with admission. Request consults from Dr. Minaya, Dr. Escalera, Dr. Mary , and Dr. Malcolm. 08/08/17 19:48: Case discussed in detail with Dr. Landin, Nursing Home Aide legal receptionist, who was made aware and will come evaluate patient at bedside and will likely admit patient to the ICU. 08/08/17 19:50: Case discussed with Dr. Morse who was made aware. Agrees with emergency department management. Ambivalent regarding reversing patient's Brilinta as there are no reversing agents available. Recommends patient's bed be elevated above [address] in the morning. 08/08/17 20:17: Spoke to pharmacy regarding reversal agents for Brilinta. Pharmacist recommends platelet transfusion as Kcentra is not recommended for Brilinta reversal. pt remain at baseline mental status pt is made aware of his medical results agrees with admission Re-evaluation Time: 20:00 Reassessment Condition: Unchanged - Critical Care Critical Care Minutes: 60 minutes Critical Care Time: Excluding Proc Time Narrative Critical Care (Text): 08/08/17 2100 critical care time: 60min, excluding procedure time, excluding time teaching residents/students/mid-level providers; including initial eval/diagnosis, diagnostic interpretation, re-eval, consultations, final disposition - Lab Interpretations Lab Results: 08/08/17 17:09 08/08/17 18:20 Lab Results 08/08/17 18:20: Sodium 143, Potassium 5.5 H, Chloride 96 L, Carbon Dioxide 26, Anion Gap 26 H, BUN 86 H, Creatinine 11.8 H* D, Est GFR ( Amer) 5, Est GFR (Non-Af Amer) 5, Random Glucose 85, Calcium 8.6, Total Bilirubin 1.0, AST 104 H, ALT 43, Alkaline Phosphatase 64, Total Protein 8.2, Albumin 4.1, Globulin 4.2, Albumin/Globulin Ratio 1.0 L 08/08/17 17:09: PT 17.5 H, INR 1.52 H, APTT 31.9 08/08/17 17:09: WBC 4.5, RBC 3.12 L, Hgb 9.2 L, Hct 29.3 L, MCV 93.9, MCH 29.5, MCHC 31.4, RDW 19.2 H, Plt Count 165, Gran % 66.0, Lymph % (Auto) 22.6, [place] % ( Auto) 9.4 H, Eos % (Auto) 1.3 L, Baso % (Auto) 0.7, Gran # 2.94, Lymph # (Auto) 1.0 L, [place] # (Auto) 0.4, Eos # (Auto) 0.1, Baso # (Auto) 0.03 08/08/17 14:19: POC Glucose (mg/dL) 76 I have reviewed the lab results: Yes Interpretation: Abnormal lab values - RAD Interpretation Narrative RAD Interpretations (Text): 08/08/17 19:33 CT Head Without Intravenous Contrast Dictated and Authenticated by: Shara Limon MD 08/08/2017 7:24 PM Eastern Time ([place] & [place]) IMPRESSION: Acute subdural hematoma is noted along the falx cerebri, measuring up to 1 cm in maximum thickness. 08/08/17 20:05: Chest X-ray read and interpreted by me shows right cardiac device, cardiomegaly, poor expiratory effort with mild pulmonary vascular congestion. No effusions noted. Radiology Orders: 08/08/17 15:05 HEAD W/O CONTRAST [CT] Stat 08/08/17 15:06 CHEST TWO VIEWS (PA/LAT) [RAD] Stat Bird Tender: ED Physician, Radiologist - EKG Interpretation EKG Interpretation (Text): 08/08/171999 Paced rhythm at 60 bpm, no ectopy, ABNL EKG; unchanged compare with old ekg 2017 Interpreted by ED Physician: Yes Type: 12 lead EKG Comparison: Similar to previous EKG - Medication Orders Current Medication Orders: Albuterol/Ipratropium (Duoneb 3 Mg/0.5 Mg (3 Ml) Ud) 3 ml IH [id number] PRN PRN Reason: Shortness of Breath Insulin Detemir (Levemir) 25 unit SC HS CARLOS Insulin Human Regular (Humulin R Med) 0 units SC ACHS CARLOS PRN Reason: Protocol Pantoprazole Sodium (Protonix Inj) 40 mg IVP DAILY CARLOS Discontinued Medications Dextrose (Dextrose Inj 25%) 10 ml IV ONCE ONE Stop: 08/08/17 17:50 Last Admin: 08/08/17 18:01 Dose: 10 ml eMAR Start Stop Document 08/08/17 18:01 FILIPPO (Rec: 08/08/17 18:05 FILIPPO [id number]) Intravenous Solution Start Date 08/08/17 Start Time 18:01 End Date 08/08/17 End time 18:01 Total Infusion Time 0 Oxycodone/Acetaminophen (Percocet 5/325 Mg Tab) 1 tab PO STAT STA Stop: 08/08/17 17:51 Last Admin: 08/08/17 18:05 Dose: 1 tab MAR Pain Assessment Document 08/08/17 18:05 FILIPPO (Rec: 08/08/17 18:05 FILIPPO [id number]) Pain Reassessment Is this a pain reassessment? No Sleep Is patient sleeping during reassessment? No Presence of Pain Presence of Pain Yes Location Pain Location Body Site Generalized Description Intensity of Pain at present 7 Pain Behavior Guarding Re-Assess: VARUN Pain Assessment Document 08/08/17 19:05 FILIPPO (Rec: 08/08/17 19:21 FILIPPO [id number]) Pain Reassessment Is this a pain reassessment? Yes Sleep Is patient sleeping during reassessment? Yes - Scribe Statement The provider has reviewed the documentation as recorded by the Scribe Mary Cooley. All medical record entries made by the Scribe were at my direction and personally dictated by me. I have reviewed the chart and agree that the record accurately reflects my personal performance of the history, physical exam, medical decision making, and the department course for this patient. I have also personally directed, reviewed, and agree with the discharge instructions and disposition. Disposition/Present on Arrival - Present on Arrival Any Indicators Present on Arrival: No History of DVT/PE: No History of Uncontrolled Diabetes: Yes Urinary Catheter: No History of Decub. Ulcer: No History Surgical Site Infection Following: None - Disposition Have Diagnosis and Disposition been Completed?: Yes Diagnosis: Acute subdural hematoma, Frequent falls, Epistaxis, Weakness, ESRD (end stage renal disease) on dialysis, Hypoglycemia Disposition: HOSPITALIZED Disposition Time: 20:00 Patient Plan: Admission, ICU Patient Problems: Current Active Problems Problem Status Onset Acute subdural hematoma Acute ESRD (end stage renal disease) on dialysis Acute Epistaxis Acute Frequent falls Acute Weakness Acute Condition: FAIR
[2017-08-08 17:16] LABS: BASO # 0.03 K/mm3 (0.0-2.0); BASO % 0.7 % (0.0-3.0); EOS # 0.1 (0.0-0.7); EOS % 1.3 % (1.5-5.0); GRAN # 2.94 (1.4-6.5); HEMOGLOBIN 9.2 g/dL (14.0-18.0); LYMPH % 22.6 % (22.0-35.0); MEAN CELL VOLUME 93.9 fl (80.0-105.0); MEAN CORPUSCULAR HEMOGLOBIN 29.5 pg (25.0-35.0); MEAN CORPUSCULAR HGB CONC 31.4 g/dl (31.0-37.0); MONO # 0.4 (0.1-0.6); MONO % 9.4 % (1.0-6.0); PLATELET COUNT 165 10^3/uL (120.0-450.0); RBC 3.12 10^6/uL (3.5-6.1); RED CELL DISTRIBUTION WIDTH 19.2 % (11.5-14.5); WHITE BLOOD COUNT 4.5 10^3/ul (4.5-11.0)
[2017-08-08 17:35] LABS: INR 1.52 (0.93-1.08); PARTIAL THROMBOPLASTIN TIME 31.9 Seconds (25.1-36.5); PROTHROMBIN TIME 17.5 SECONDS (9.4-12.5)
[2017-08-08] MEDS ORDERED: Dextrose 25% Inj (10ml) IV ONE (17:49)
[2017-08-08] MEDS ORDERED: Oxycodone/Acetaminophen 5/325 mg Tab PO STA (17:50)
[2017-08-08 18:48] LABS: ALBUMIN 4.1 g/dL (3.0-4.8); CALCIUM 8.6 mg/dL (8.4-10.5)
--- NOTE | 2017-08-08 21:22 | CP.PCM.CON ---
History of Present Illness - History of Present Illness History of Present Illness: Surgery Consult Note. Dr. Urrutia 52yo M with PMHx of ESRD, HTN, CAD s/p stents, Recent Pacemaker, HTN, DM here after fall in the dialysis unit today. Surgery consulted for triple lumen access due to poor peripheral access. He reports that he had a pacemaker placed recently and had a cardiac cath performed about a month ago via the right femoral vessel access. He denies any chest pain, no N/V/D. No Abd pain. No F/C. No Shortness of breath. He reports that he is on Brillinta and last took his medical earlier today. PMD: Dr. Kessler PMHx: ESRD, HTN, CAD, HTN, DM PSHx: Cholecystectomy, Recent Pacemaker, left eye surgery, coronary stents Family Hx: Non-contributory Social Hx: Denies ETOH use, Denies Tobacco use, Denies illicit drugs Allergy: Insulin aspart, Moxifloxacin, PCN Review of Systems - Review of Systems All systems: reviewed and no additional remarkable complaints except - Constitutional Constitutional: Fatigue, Frequent Falls. absent: Chills, Fever - Cardiovascular Cardiovascular: absent: Chest Pain, Dyspnea - Respiratory Respiratory: absent: Dyspnea - Gastrointestinal Gastrointestinal: absent: Abdominal Pain, Diarrhea, Melena, Nausea, Vomiting - Genitourinary Genitourinary: absent: Dysuria - Neurological Neurological: Weakness (left upper and left lower extremity weakness) Past Patient History - Infectious Disease Hx of Infectious Diseases: None - Tetanus Immunizations Tetanus Immunization: Up to Date - Past Medical History & Family History Past Medical History?: Yes Past Family History: Reviewed and not pertinent - Past Social History Smoking Status: Never Smoked Alcohol: None Drugs: Denies - CARDIAC Hx Cardiac Disorders: Yes (CAD) Hx Hypertension: Yes - PULMONARY Hx Chronic Obstructive Pulmonary Disease (COPD): Yes - NEUROLOGICAL Hx Transient Ischemic Attacks (TIA): Yes - HEENT Hx HEENT Problems: Yes (BILATERAL EYE WITH BLURRY VISION) Hx Cataracts: Yes (HAD SX 05/29/12) Other/Comment: left eye cornea transplant,RENAL RETINOPATHY, glasses - RENAL Hx Renal Failure: Yes (ESRD (on hemodialysis 3x/wk)) - ENDOCRINE/METABOLIC Hx Diabetes Mellitus Type 2: Yes - HEMATOLOGICAL/ONCOLOGICAL Hx Anemia: Yes (With transfusions) - INTEGUMENTARY Hx Dermatological Problems: Yes (BILATERAL EDEMA TO UPPER AND LE,SKIN DRYNESS) - MUSCULOSKELETAL/RHEUMATOLOGICAL Hx Arthritis: Yes - GASTROINTESTINAL Hx Gastrointestinal Disorders: No - GENITOURINARY/GYNECOLOGICAL Hx Genitourinary Disorders: Yes (esrd on HD MWF) - PSYCHIATRIC Hx Psychophysiologic Disorder: No Hx Anxiety: Yes Hx Substance Use: No - SURGICAL HISTORY Hx Cardiac Catheterization: Yes Hx Cholecystectomy: Yes (08/15/12) Hx Coronary Stent: Yes (x2 monday06/13/17) Other/Comment: FISTULA/pacemaker 2 weeks ago - ANESTHESIA Hx Anesthesia: Yes Hx Anesthesia Reactions: No Hx Malignant Hyperthermia: No Meds Allergies/Adverse Reactions: Allergies Allergy/AdvReac Type Severity Reaction Status Date / Time insulin aspart [From Novolog] Allergy Intermediate ITCHING Verified 07/21/17 01: 26 moxifloxacin Allergy Intermediate ITCHING Verified 07/21/17 01:26 Penicillins Allergy Intermediate ITCHING Verified 07/21/17 01:26 Physical Exam - Constitutional Appears: Non-toxic, No Acute Distress - Head Exam Head Exam: ATRAUMATIC, NORMAL INSPECTION, NORMOCEPHALIC - Eye Exam Eye Exam: EOMI, Normal appearance - ENT Exam ENT Exam: Mucous Membranes Moist - Respiratory Exam Respiratory Exam: NORMAL BREATHING PATTERN. absent: Accessory Muscle Use, Respiratory Distress - Cardiovascular Exam Cardiovascular Exam: absent: JVD - GI/Abdominal Exam GI & Abdominal Exam: Soft. absent: Distended, Firm, Guarding, Rebound, Rigid - Extremities Exam Extremities exam: Positive for: normal inspection. Negative for: calf tenderness - Neurological Exam Neurological exam: Alert, Oriented x3 Results - Vital Signs Recent Vital Signs: Last Vital Signs Temp 98 F 08/08/17 21:09 Pulse 61 08/08/17 21:09 Resp 18 08/08/17 21:09 BP 113/53 L 08/08/17 21:09 Pulse Ox 100 08/08/17 21:09 - Labs Result Diagrams: 08/08/17 17:09 08/08/17 18:20 Labs: Laboratory Results - last 24 hr 08/08/17 20:58 BBK History Checked Patient has bt Assessment & Plan - Assessment and Plan (Free Text) Assessment: 52yo M with acute subdural hematoma s/p fall. Surgery consulted for Central venous access Plan: - Written consent obtained and on chart - Right Femoral Triple Lumen catheter placed under direct US guidance. - Patient tolerated procedure well - No immediate complications noted. - Please re-consult surgery as needed Further recs as per Dr. Renan Worrell PGY1 surgery pager: [phone]
[2017-08-08] MEDS ORDERED: Insulin Lispro (humaLOG) MEDIUM Coverage SC SCH (22:00)
--- NOTE | 2017-08-08 23:13 | PCM.PROC ---
Procedures Attestation:: I certify that I have explained the specified Operation(s) or Procedure(s), risks, benefits and reasonable alternatives to the Patient and/or other person responsible. The opportunity was given to ask questions and all questions answered - Central Line Placement Right Femoral Triple Lumen Catheter Aseptic technique was employed throughout the procedure: Hand Hygiene done prior to procedure, Full sterile barriers (mask, hair cover, sterile gown, sterile gloves), Full body sterile drape, Chloraprep Antiseptic: 2 minute prep for Femoral CVP Time Out Performed: Yes Pt. Placed on Pulse Ox Monitor: No Central Line Prep: Chlorhexidine-Alcohol Combination Local Anesthesia Used: Lidocaine 1% Amount of Anesthesia Used (mls): 3 Ultrasound Used for Placement: Yes Central Line Lumen Inserted: triple Central Line Length: 20 cm Post Procedure: Sutured in Place, Good Blood Return, All Ports Aspirated, Flushed, Capped, Sterile Dressing Applied Secured by: Suture Post procedure dressing: Clear vapor permeable, Chlorhexidine disc (Biopatch) Post Procedure X-Ray: No Patient Tolerated Procedure: Well, No Complications Immediate Complications: None
--- NOTE | 2017-08-08 23:16 | CP.PCM.CON ---
<Matthias Aguilar - Last Filed: 08/08/17 23:55> History of Present Illness - History of Present Illness History of Present Illness: ICU Consult Note: CC: ICH s/p mechanical fall HPI: Mr. Miramontes is a 52 year old male with a past medical history significant for COPD, CAD with 4 stents, recently placed PPM, ESRD on HD MWF, IDDM2 and HTN who presents from dialysis unit after having fallen and hit his head. Patient reports that he has fallen "a few times" in the past two weeks, including twice yesterday, and endorses hitting his head on more than one of these falls. He also endorses intermittent epistaxis for the past two days. He reports that these falls were mechanical in nature and that today he slipped over his shoe. Of note, patient had PPM placed on 06/28/17 and two YORDY placed in the LAD on by Dr. Erickson. Patient was placed on Brilinta and ASA after YORDY placement, both last taken approximately 12 hours [employer]. Patient denies any further complaints at this time including fevers, chills, headache, changes in his vision, dizziness, neck pain/stiffness, chest pain, SOB, abdominal pain, N/V/D/C , changes in urine output, skin changes, or any new numbness/tingling/weakness of any extremity. PMH: As stated above PSH: Multiple cardiac caths, left cornea transplant and AV fistula in left arm Family History: Mother-CAD, IDDM2, HTN Social history: Denies tobacco, alcohol or illicit drug use; Lives at home with mother Allergies: insulin aspart, moxifloxacin, penicillin Home Medications: As per MAR Review of Systems - Review of Systems Review of Systems: As stated in HPI, otherwise negative Past Patient History - Infectious Disease Hx of Infectious Diseases: None - Tetanus Immunizations Tetanus Immunization: Up to Date - Past Medical History & Family History Past Medical History?: Yes - Past Social History Smoking Status: Never Smoked - CARDIAC Hx Cardiac Disorders: Yes (CAD) Hx Hypertension: Yes - PULMONARY Hx Chronic Obstructive Pulmonary Disease (COPD): Yes - NEUROLOGICAL Hx Transient Ischemic Attacks (TIA): Yes - HEENT Hx HEENT Problems: Yes (BILATERAL EYE WITH BLURRY VISION) Hx Cataracts: Yes (HAD SX 05/29/12) Other/Comment: left eye cornea transplant,RENAL RETINOPATHY, glasses - RENAL Hx Renal Failure: Yes (ESRD (on hemodialysis 3x/wk)) - ENDOCRINE/METABOLIC Hx Diabetes Mellitus Type 2: Yes - HEMATOLOGICAL/ONCOLOGICAL Hx Anemia: Yes (With transfusions) - INTEGUMENTARY Hx Dermatological Problems: Yes (BILATERAL EDEMA TO UPPER AND LE,SKIN DRYNESS) - MUSCULOSKELETAL/RHEUMATOLOGICAL Hx Arthritis: Yes - GASTROINTESTINAL Hx Gastrointestinal Disorders: No - GENITOURINARY/GYNECOLOGICAL Hx Genitourinary Disorders: Yes (esrd on HD MWF) - PSYCHIATRIC Hx Psychophysiologic Disorder: No Hx Anxiety: Yes Hx Substance Use: No - SURGICAL HISTORY Hx Cardiac Catheterization: Yes Hx Cholecystectomy: Yes (08/15/12) Hx Coronary Stent: Yes (x2 monday06/13/17) Other/Comment: FISTULA/pacemaker 2 weeks ago - ANESTHESIA Hx Anesthesia: Yes Hx Anesthesia Reactions: No Hx Malignant Hyperthermia: No Meds Allergies/Adverse Reactions: Allergies Allergy/AdvReac Type Severity Reaction Status Date / Time insulin aspart [From Novolog] Allergy Intermediate ITCHING Verified 07/21/17 01: 26 moxifloxacin Allergy Intermediate ITCHING Verified 07/21/17 01:26 Penicillins Allergy Intermediate ITCHING Verified 07/21/17 01:26 - Medications Medications: Current Medications Albuterol/Ipratropium (Duoneb 3 Mg/0.5 Mg (3 Ml) Ud) 3 ml IH [id number] PRN PRN Reason: Shortness of Breath Insulin Detemir (Levemir) 25 unit SC HS CARLOS Insulin Human Regular (Humulin R Med) 0 units SC ACHS CARLOS PRN Reason: Protocol Pantoprazole Sodium (Protonix Inj) 40 mg IVP DAILY [facility] Physical Exam - Constitutional Appears: Non-toxic, No Acute Distress - Head Exam Head Exam: ATRAUMATIC, NORMOCEPHALIC - Eye Exam Eye Exam: EOMI, Normal appearance, PERRL. absent: Conjunctival injection, Nystagmus, Periorbital swelling, Periorbital tenderness, Scleral icterus Pupil Exam: NORMAL ACCOMODATION, PERRL. absent: Fixed, Irregular, Miosis, Mydriatic, Unequal - ENT Exam Additional comments: Dried blood with scabbing in right nares - Neck Exam Neck exam: Positive for: Full Rom, Normal Inspection. Negative for: Lymphadenopathy, Meningismus, Tenderness, Thyromegaly - Respiratory Exam Respiratory Exam: Clear to Auscultation Bilateral, NORMAL BREATHING PATTERN. absent: Accessory Muscle Use, Chest Wall Tenderness, Decreased Breath Sounds, Prolonged Expiratory Phase, Rales, Rhonchi, Wheezes, Respiratory Distress, Stridor - Cardiovascular Exam Cardiovascular Exam: REGULAR RHYTHM, RRR. absent: Bradycardia, Tachycardia, Clicks, Diastolic murmur, Gallop, Irregular Rhythm, JVD, Rubs, +S1, +S2, +S4, Systolic Murmur - GI/Abdominal Exam GI & Abdominal Exam: Normal Bowel Sounds, Soft. absent: Tenderness - Extremities Exam Extremities exam: Positive for: full ROM, normal capillary refill, pedal pulses present. Negative for: calf tenderness, joint swelling, normal inspection ( Chronic non-healing ulcer of plantar surface of left foot), pedal edema, tenderness - Neurological Exam Neurological exam: Alert, CN II-XII Intact, Oriented x3 Additional comments: Strength grossly 5/5 in all extremities; No facial asymmetry or slurred speech noted on exam - Psychiatric Exam Psychiatric exam: Normal Affect, Normal Mood - Skin Skin Exam: Dry, Warm Results - Vital Signs Recent Vital Signs: Last Vital Signs Temp 98 F 08/08/17 21:09 Pulse 61 08/08/17 21:09 Resp 18 08/08/17 21:09 BP 113/53 L 08/08/17 21:09 Pulse Ox 100 08/08/17 21:09 - Labs Result Diagrams: 08/08/17 17:09 08/08/17 18:20 Labs: Laboratory Results - last 24 hr 08/08/17 20:58 Blood Type B POSITIVE Antibody Screen Negative BBK History Checked Patient has bt Assessment & Plan - Assessment and Plan (Free Text) Assessment: 52 year old male with a past medical history significant for COPD, CAD with 4 stents, recently placed PPM, ESRD on HD MWF, IDDM2 and HTN who presents from dialysis unit after having fallen and hit his head. ICU consultation was requested for management of ICH, as CT head without contrast showed acute subdural hematoma along the falx cerebri, measuring up to 1 cm in maximum thickness. Patient will receive platelet transfusion for Brilinta reversal. Patient will be admitted to ICU for further monitoring. Plan: Neuro: -CT Head without contrast reviewed; Repeat ordered for AM -Transfused one unit of platelets and three units of FFP for reversal of Brilinta -Neurochecks Q1 for first six hours and then Q2 -HOB elevated above 30 degrees -Seizure and Fall precautions in place -Neurosurgery consulted, all recommendations appreciated Pulm: -Duonebs Q6 PRN -Maintain oxygenation saturation above 92% Cardio: -Maintain SBP above 90mmHg -Holding dual antiplatelets in setting of ICH GI: -Protonix 40mg IVP daily Endo: -SSI-Low ACHS and Levemir 25u HS -Accuchecks Q4 -Maintain Euglycemia GI Prophylaxis: Protonix DVT Prophylaxis: SCD's Patient seen and case discussed with attending, Dr. Awan. Knight PGY1 - Date & Time Date: 08/08/17 Time: 23:16 <Robby Landin Q - Last Filed: 08/09/17 02:36> Meds - Medications Medications: Current Medications Acetaminophen (Tylenol 120mg Supp) 120 mg RC Q6 PRN PRN Reason: Fever >100.4 F Albuterol/Ipratropium (Duoneb 3 Mg/0.5 Mg (3 Ml) Ud) 3 ml IH [id number] PRN PRN Reason: Shortness of Breath Insulin Detemir (Levemir) 25 unit SC HS CARLOS Last Admin: 08/08/17 23:35 Dose: Not Given Insulin Human Regular (Humulin R Med) 0 units SC ACHS CARLOS PRN Reason: Protocol Last Admin: 08/08/17 23:24 Dose: Not Given Pantoprazole Sodium (Protonix Inj) 40 mg IVP DAILY [facility] Results - Vital Signs Recent Vital Signs: Last Vital Signs Temp 98.0 F 08/09/17 00:31 Pulse 60 08/09/17 00:31 Resp 14 08/09/17 00:31 BP 130/74 08/09/17 00:31 Pulse Ox 98 08/08/17 23:53 - Labs Result Diagrams: 08/08/17 17:09 08/08/17 18:20 Labs: Laboratory Results - last 24 hr 08/08/17 08/08/17 20:58 23:16 POC Glucose (mg/dL) 87 Blood Type B POSITIVE Antibody Screen Negative BBK History Checked Patient has bt Attending/Attestation - Attestation I have personally seen and examined this patient.: Yes I have fully participated in the care of the patient.: Yes I have reviewed all pertinent clinical information: Yes Notes (Text): 08/09/17 02:31 I agree with the above mentioned note and exam as listed by the resident with the addition/exception of the followin52 y/o male with an extensive PMHx including COPD, CAD s/p PCI with YORDY a few weeks prior, symptomatic bradycardia with placement of a ppm, HTN, ESRD on HD M/ W/F, Type 2 DM who presented to the ED secondary to increasing frequency of unexplained falls along with epistaxis x 2 days. Patient reports that he has been slipping and falling more often compared to usual and does not have any presyncopal events rather attributes this to mechanical slip and falls. He was last witnessed to fall while at his last HD session which was not even started. In the ED pt's workup revealed a subdural hematoma along the falx cerebria without any midline shift. Patient is neurologically intact, moving all his extremities with strength appropriately. Given that patient was just recently placed on Brillinta for his YORDY and has been on ASA, he was transfused with PLT' s for his nonfunctional platelets as well as with FFP for his elevated INR. Patient will undergo a repeat Head CT in the AM. ED Physician relayed that he spoke with Neurosurgery regarding the case and was informed there is no surgical intervention needed at this time and to admit the patient to the ICU with head of bed elevation @ 30 degrees. all labs and images available thus far have been reviewed case discussed with Dr. Pinon in the ED at length total time of care: 50 minutes
[2017-08-08] MEDS: Insulin Reg-MEDIUM-Coverage SC SCH (23:24)
[2017-08-08] MEDS: Insulin Detemir 100 units/ml Vial (Levemir) SC SCH (23:35)
[2017-08-09] MEDS ORDERED: Morphine 4 mg/ml ISec IVP ONE (00:30)
--- NOTE | 2017-08-09 08:07 | CARD ---
APPROVED REPORT EKG Measurement Heart [id number] [id number] <Conclusion> Electronic ventricular pacemaker
[2017-08-09] MEDS: Insulin Reg-MEDIUM-Coverage SC SCH ×4 (08:27→21:43)
--- NOTE | 2017-08-09 08:44 | RAD ---
HISTORY: Weakness, end-stage renal disease. COMPARISON: 07/25/2017 TECHNIQUE: Chest PA and lateral FINDINGS: LUNGS: Pulmonary vascular congestion PLEURA: No significant pleural effusion identified. No pneumothorax apparent. CARDIOVASCULAR: Cardiomegaly. Position/ configuration of pacemaker Satisfactory. OSSEOUS STRUCTURES: No significant abnormalities. VISUALIZED UPPER ABDOMEN: Normal. OTHER FINDINGS: None. IMPRESSION: Cardiomegaly/mild CHF a new finding compared to the prior study. Concordant results with the preliminary interpretation rendered by the emergency department physician procedure.
--- NOTE | 2017-08-09 09:02 | CP.CCUPN ---
<Bryan Apodaca - Last Filed: 08/09/17 09:13> CCU Subjective - Physician Review Subjective (Free Text): ICU Progress Note Pt seen and examined at bedside. No acute overnight events. Patient states that he feels better overall. Denies any head pain. Denies CP, SOB, n/v/d, abdominal pain, fever, chills, MOON, or dizziness. CCU Objective - Vital Signs / Intake & Output Vital Signs (Last 4 hours): Vital Signs Temp Pulse Resp BP Pulse Ox 08/09/17 08:43 70 20 08/09/17 08:42 70 13 08/09/17 08:20 68 15 100 08/09/17 08:10 67 15 100 08/09/17 08:00 97.4 F L 71 13 145/56 L 100 08/09/17 07:50 65 13 100 08/09/17 07:40 75 14 100 08/09/17 07:30 67 17 99 08/09/17 07:20 68 96 08/09/17 07:10 70 28 H 98 08/09/17 07:00 68 17 118/41 L 99 08/09/17 06:50 70 17 99 08/09/17 06:40 68 12 100 08/09/17 06:30 64 11 L 100 08/09/17 06:20 68 14 99 08/09/17 06:10 65 19 100 08/09/17 06:00 60 12 117/52 L 100 08/09/17 05:50 60 12 98 08/09/17 05:40 60 13 98 08/09/17 05:30 60 12 100 08/09/17 05:20 60 13 98 08/09/17 05:10 60 11 L 99 08/09/17 05:00 60 12 123/48 L 100 Intake and Output (Last 8hrs): Intake & Output 08/08/17 08/09/17 08/09/17 22:59 06:59 14:59 Intake Total 1051 Balance 1051 Intake: IV 850 ffp 600 plt 250 Blood Product 201 Apheresis Plts Acda Lr 201 Irr 3rd Unit [id number] Other: Voiding Method Urinal - Physical Exam Head: Positive for: Atraumatic, Normocephalic Extroacular Muscles: Positive for: EOMI Mouth: Positive for: Moist Mucous Membranes Neck: Positive for: Normal Range of Motion. Negative for: MIDLINE TENDERNESS, Paraspinal Tenderness Respiratory/Chest: Positive for: Clear to Auscultation. Negative for: Wheezes, Rales, Retracting, Rhonchi Cardiovascular: Positive for: Regular Rate and Rhythm, Normal S1, S2. Negative for: Murmurs, Rub, Muffled Abdomen: Negative for: Tenderness, Distention, Peritoneal Signs, Rebound, Guarding Back: Positive for: Normal Inspection Neurological: Positive for: GCS=15, CN II-XII Intact, Speech Normal, Motor Func Grossly Intact, Normal Sensory Function Skin: Positive for: Warm, Dry, Normal Color Psychiatric: Positive for: Alert, Oriented x 3, Normal Insight, Normal Concentration - Medications Active Medications: Active Medications Generic Name Dose Route Start Last Admin Trade Name Freq PRN Reason Stop Dose Admin Albuterol/Ipratropium 3 ml 08/08/17 21:46 Duoneb 3 Mg/0.5 Mg (3 Ml) Ud IH [id number] PRN Shortness of Breath Guaifenesin/Dextromethorphan 10 ml 08/09/17 08:49 Robitussin Dm PO Q4H PRN Cough Insulin Detemir 25 unit 08/08/17 22:00 08/08/17 23:35 Levemir SC Not Given HS [facility] Insulin Human Regular 0 units 08/08/17 22:00 08/09/17 08:27 Humulin R Med SC Not Given ACHS [facility] Protocol Pantoprazole Sodium 40 mg 08/09/17 10:00 Protonix Inj IVP DAILY CARLOS - Patient Studies Lab Studies: Lab Studies 08/09/17 08/08/17 08/08/17 Range/Units 04:14 23:16 20:58 POC Glucose (mg/dL) 213 H 87 (65-110) mg/dL Blood Type B POSITIVE Antibody Screen Negative BBK History Checked Patient has bt Laboratory Results - last 24 hr 08/08/17 08/08/17 08/09/17 20:58 23:16 04:14 POC Glucose (mg/dL) 87 213 H Blood Type B POSITIVE Antibody Screen Negative BBK History Checked Patient has bt Fingerstick Blood Sugar Results: 178 Assessment/Plan - Assessment and Plan (Free Text) Assessment: 52 year old male with a past medical history significant for COPD, CAD with 4 stents, recently placed PPM, ESRD on HD MWF, IDDM2 and HTN who presents from dialysis unit after having fallen and hit his head. ICU consultation was requested for management of ICH, as CT head without contrast showed acute subdural hematoma along the falx cerebri, measuring up to 1 cm in maximum thickness. Patient received platelet and FFP transfusion for Brilinta reversal. Patient will be admitted to ICU for further monitoring. Plan: Neuro: - CT Head on admission showed acute subdural hematoma along the falx cerebri, measuring up to 1 cm - Repeat CT head showed stable subdural hematoma - Transfused one unit of platelets and three units of FFP for reversal of Brilinta - Neurocheck - HOB elevated above 30 degrees - Seizure and Fall precautions in place - Neurosurgery consulted, all recommendations appreciated Pulm: - Duonebs Q6 PRN - Maintain O2 sat 88-92% - Pulm consulted Cardio: - Maintain MAP > 65 - Holding dual antiplatelets in setting of ICH - Cardiology consulted GI: - Protonix for GI PPx - Renal diet Renal: - HD in ED on admission, pulled 2L - Plan for HD today (M/W/) - Monitor electrolytes - Maintain normovolemia Endo: - SSI-Low ACHS and Levemir 25u HS - Accuchecks - Maintain Euglycemia Heme: - SCDs for DVT PPx - Heme/Onc consulted Patient seen and case discussed with attending, Dr. Webster. Isaac Apodaca, PGY1 <Devon Webster - Last Filed: 08/09/17 12:09> CCU Objective - Vital Signs / Intake & Output Vital Signs (Last 4 hours): Vital Signs Pulse Resp BP Pulse Ox 08/09/17 10:52 100 08/09/17 10:50 67 22 99 08/09/17 10:40 71 27 H 08/09/17 10:30 68 21 99 08/09/17 10:20 66 17 99 08/09/17 10:10 67 16 100 08/09/17 10:00 69 16 142/57 L 100 08/09/17 09:50 66 15 97 08/09/17 09:40 69 100 08/09/17 09:30 69 24 100 08/09/17 09:20 68 12 98 08/09/17 09:10 68 18 100 08/09/17 09:00 70 18 147/67 100 08/09/17 08:50 68 14 99 08/09/17 08:43 70 20 08/09/17 08:42 70 13 08/09/17 08:20 68 15 100 08/09/17 08:10 67 15 100 Intake and Output (Last 8hrs): Intake & Output 08/08/17 08/09/17 08/09/17 22:59 06:59 14:59 Intake Total 1051 Balance 1051 Intake: IV 850 ffp 600 plt 250 Blood Product 201 Apheresis Plts Acda Lr 201 Irr 3rd Unit [id number] Other: Voiding Method Urinal - Medications Active Medications: Active Medications Generic Name Dose Route Start Last Admin Trade Name Freq PRN Reason Stop Dose Admin Albuterol/Ipratropium 3 ml 08/08/17 21:46 Duoneb 3 Mg/0.5 Mg (3 Ml) Ud IH [id number] PRN Shortness of Breath Guaifenesin/Dextromethorphan 10 ml 08/09/17 08:49 08/09/17 09:29 Robitussin Dm PO 10 ml Q4H PRN Administration Cough Insulin Detemir 25 unit 08/08/17 22:00 08/08/17 23:35 Levemir SC Not Given HS CAR[facility]OS Insulin Human Regular 0 units 08/08/17 22:00 08/09/17 08:27 Humulin R Med SC Not Given ACHS [facility] Protocol Pantoprazole Sodium 40 mg 08/09/17 10:00 08/09/17 09:29 Protonix Inj IVP 40 mg DAILY [facility] Administration Tramadol HCl 50 mg 08/09/17 09:00 08/09/17 09:30 Ultram PO 50 mg TID PRN Administration Pain, moderate (4-7) - Patient Studies Lab Studies: Lab Studies 08/09/17 08/09/17 08/09/17 Range/Units 10:00 10:00 10:00 WBC 4.3 L (4.5-11.0) 10^3/ul RBC 2.81 L (3.5-6.1) 10^6/uL Hgb 8.3 L (14.0-18.0) g/dL Hct 26.9 L (42.0-52.0) % MCV 95.7 (80.0-105.0) fl MCH 29.5 (25.0-35.0) pg MCHC 30.9 L (31.0-37.0) g/dl RDW 18.9 H (11.5-14.5) % Plt Count 101 L (120.0-450.0) 10^3/uL MPV 11.7 H (7.0-11.0) fl Gran % 63.0 (50.0-68.0) % Lymph % (Auto) 22.7 (22.0-35.0) % [place] % (Auto) 10.6 H (1.0-6.0) % Eos % (Auto) 2.8 (1.5-5.0) % Baso % (Auto) 0.9 (0.0-3.0) % Gran # 2.72 (1.4-6.5) Lymph # (Auto) 1.0 L (1.2-3.4) [place] # (Auto) 0.5 (0.1-0.6) Eos # (Auto) 0.1 (0.0-0.7) Baso # (Auto) 0.04 (0.0-2.0) K/mm3 PT 17.1 H (9.4-12.5) SECONDS INR 1.48 H (0.93-1.08) APTT 29.7 (25.1-36.5) Seconds Sodium 137 (132-148) mmol/L Potassium 6.2 H* (3.6-5.0) mmol/L Chloride 92 L (98-107) mmol/L Carbon Dioxide 27 (21-33) mmol/L Anion Gap 25 H (10-20) BUN 60 H (7-21) mg/dL Creatinine 10.0 H* (0.8-1.5) mg/dl Est GFR ( Amer) 7 Est GFR (Non-Af Amer) 5 POC Glucose (mg/dL) (65-110) mg/dL Random Glucose 213 H (70-110) mg/dL Calcium 8.4 (8.4-10.5) mg/dL Phosphorus 7.7 H (2.5-4.5) mg/dL Magnesium 2.5 H (1.7-2.2) mg/dL Total Bilirubin 1.1 (0.2-1.3) mg/dL AST 75 H D (17-59) U/L ALT 44 (7-56) U/L Alkaline Phosphatase 70 (38-126) U/L Total Protein 8.2 (5.8-8.3) g/dL Albumin 4.1 (3.0-4.8) g/dL Globulin 4.1 gm/dL Albumin/Globulin Ratio 1.0 L (1.1-1.8) Blood Type Antibody Screen BBK History Checked 08/09/17 08/09/17 08/08/17 Range/Units 07:56 04:14 23:16 WBC (4.5-11.0) 10^3/ul RBC (3.5-6.1) 10^6/uL Hgb (14.0-18.0) g/dL Hct (42.0-52.0) % MCV (80.0-105.0) fl MCH (25.0-35.0) pg MCHC (31.0-37.0) g/dl RDW (11.5-14.5) % Plt Count (120.0-450.0) 10^3/uL MPV (7.0-11.0) fl Gran % (50.0-68.0) % Lymph % (Auto) (22.0-35.0) % [place] % (Auto) (1.0-6.0) % Eos % (Auto) (1.5-5.0) % Baso % (Auto) (0.0-3.0) % Gran # (1.4-6.5) Lymph # (Auto) (1.2-3.4) [place] # (Auto) (0.1-0.6) Eos # (Auto) (0.0-0.7) Baso # (Auto) (0.0-2.0) K/mm3 PT (9.4-12.5) SECONDS INR (0.93-1.08) APTT (25.1-36.5) Seconds Sodium (132-148) mmol/L Potassium (3.6-5.0) mmol/L Chloride (98-107) mmol/L Carbon Dioxide (21-33) mmol/L Anion Gap (10-20) BUN (7-21) mg/dL Creatinine (0.8-1.5) mg/dl Est GFR ( Amer) Est GFR (Non-Af Amer) POC Glucose (mg/dL) 178 H 213 H 87 (65-110) mg/dL Random Glucose (70-110) mg/dL Calcium (8.4-10.5) mg/dL Phosphorus (2.5-4.5) mg/dL Magnesium (1.7-2.2) mg/dL Total Bilirubin (0.2-1.3) mg/dL AST (17-59) U/L ALT (7-56) U/L Alkaline Phosphatase (38-126) U/L Total Protein (5.8-8.3) g/dL Albumin (3.0-4.8) g/dL Globulin gm/dL Albumin/Globulin Ratio (1.1-1.8) Blood Type Antibody Screen BBK History Checked 08/08/17 Range/Units 20:58 WBC (4.5-11.0) 10^3/ul RBC (3.5-6.1) 10^6/uL Hgb (14.0-18.0) g/dL Hct (42.0-52.0) % MCV (80.0-105.0) fl MCH (25.0-35.0) pg MCHC (31.0-37.0) g/dl RDW (11.5-14.5) % Plt Count (120.0-450.0) 10^3/uL MPV (7.0-11.0) fl Gran % (50.0-68.0) % Lymph % (Auto) (22.0-35.0) % [place] % (Auto) (1.0-6.0) % Eos % (Auto) (1.5-5.0) % Baso % (Auto) (0.0-3.0) % Gran # (1.4-6.5) Lymph # (Auto) (1.2-3.4) [place] # (Auto) (0.1-0.6) Eos # (Auto) (0.0-0.7) Baso # (Auto) (0.0-2.0) K/mm3 PT (9.4-12.5) SECONDS INR (0.93-1.08) APTT (25.1-36.5) Seconds Sodium (132-148) mmol/L Potassium (3.6-5.0) mmol/L Chloride (98-107) mmol/L Carbon Dioxide (21-33) mmol/L Anion Gap (10-20) BUN (7-21) mg/dL Creatinine (0.8-1.5) mg/dl Est GFR ( Amer) Est GFR (Non-Af Amer) POC Glucose (mg/dL) (65-110) mg/dL Random Glucose (70-110) mg/dL Calcium (8.4-10.5) mg/dL Phosphorus (2.5-4.5) mg/dL Magnesium (1.7-2.2) mg/dL Total Bilirubin (0.2-1.3) mg/dL AST (17-59) U/L ALT (7-56) U/L Alkaline Phosphatase (38-126) U/L Total Protein (5.8-8.3) g/dL Albumin (3.0-4.8) g/dL Globulin gm/dL Albumin/Globulin Ratio (1.1-1.8) Blood Type B POSITIVE Antibody Screen Negative BBK History Checked Patient has bt Laboratory Results - last 24 hr 08/08/17 08/08/17 08/09/17 20:58 23:16 04:14 WBC RBC Hgb Hct MCV MCH MCHC RDW Plt Count MPV Gran % Lymph % (Auto) [place] % (Auto) Eos % (Auto) Baso % (Auto) Gran # Lymph # (Auto) [place] # (Auto) Eos # (Auto) Baso # (Auto) PT INR APTT Sodium Potassium Chloride Carbon Dioxide Anion Gap BUN Creatinine Est GFR ( Amer) Est GFR (Non-Af Amer) POC Glucose (mg/dL) 87 213 H Random Glucose Calcium Phosphorus Magnesium Total Bilirubin AST ALT Alkaline Phosphatase Total Protein Albumin Globulin Albumin/Globulin Ratio Blood Type B POSITIVE Antibody Screen Negative BBK History Checked Patient has bt 08/09/17 08/09/17 08/09/17 07:56 10:00 10:00 WBC 4.3 L RBC 2.81 L Hgb 8.3 L Hct 26.9 L MCV 95.7 MCH 29.5 MCHC 30.9 L RDW 18.9 H Plt Count 101 L MPV 11.7 H Gran % 63.0 Lymph % (Auto) 22.7 [place] % (Auto) 10.6 H Eos % (Auto) 2.8 Baso % (Auto) 0.9 Gran # 2.72 Lymph # (Auto) 1.0 L [place] # (Auto) 0.5 Eos # (Auto) 0.1 Baso # (Auto) 0.04 PT INR APTT Sodium 137 Potassium 6.2 H* Chloride 92 L Carbon Dioxide 27 Anion Gap 25 H BUN 60 H Creatinine 10.0 H* Est GFR ( Amer) 7 Est GFR (Non-Af Amer) 5 POC Glucose (mg/dL) 178 H Random Glucose 213 H Calcium 8.4 Phosphorus 7.7 H Magnesium 2.5 H Total Bilirubin 1.1 AST 75 H D ALT 44 Alkaline Phosphatase 70 Total Protein 8.2 Albumin 4.1 Globulin 4.1 Albumin/Globulin Ratio 1.0 L Blood Type Antibody Screen BBK History Checked 08/09/17 10:00 WBC RBC Hgb Hct MCV MCH MCHC RDW Plt Count MPV Gran % Lymph % (Auto) [place] % (Auto) Eos % (Auto) Baso % (Auto) Gran # Lymph # (Auto) [place] # (Auto) Eos # (Auto) Baso # (Auto) PT 17.1 H INR 1.48 H APTT 29.7 Sodium Potassium Chloride Carbon Dioxide Anion Gap BUN Creatinine Est GFR ( Amer) Est GFR (Non-Af Amer) POC Glucose (mg/dL) Random Glucose Calcium Phosphorus Magnesium Total Bilirubin AST ALT Alkaline Phosphatase Total Protein Albumin Globulin Albumin/Globulin Ratio Blood Type Antibody Screen BBK History Checked Critical Care Progress Note - Nutrition Nutrition: Nutrition Category Date Time Status Renal Diet [DIET] Diets 08/09/17 Breakfast Ordered Assessment/Plan - Assessment and Plan (Free Text) Plan: Patient seen and examined on rounds, agree with note with following additions/ exceptions: Patient is 52 year old male w/PMHx COPD, CAD with 4 stents, recently placed PPM , ESRD on HD MWF, IDDM2 and HTN who presents from dialysis unit after having fallen and hit his head. CT head without contrast showed acute subdural hematoma along the falx cerebri, measuring up to 1 cm in maximum thickness. Patient received platelet and FFP transfusion for Brilinta reversal. Currently afebrile, HD stable, comfortable in NAD, neurosurgery consulted, cardiology consulted. Denies any major complaints, non focal neurological exam. repeat CT head stable SDH ESRD on HD HTN CAD with stents COPD Recommend: - supp o2 as needed - panculture - BP control - Antiplatelet therapy as per neurosurgery and cardiology - follow up NSG, cardiology - Statin - HD as per renal - GI ppx - DVT ppx, SCDs - monitor in MICU
--- NOTE | 2017-08-09 09:15 | CT ---
PROCEDURE: CT HEAD WITHOUT CONTRAST. HISTORY: frequent falls COMPARISON: CT 07/26/2017 TECHNIQUE: Axial computed tomography images were obtained through the head/brain without intravenous contrast. Radiation dose: Total exam DLP = 938 mGy-cm. This CT exam was performed using one or more of the following dose reduction techniques: Automated exposure control, adjustment of the mA and/or kV according to patient size, and/or use of iterative reconstruction technique. FINDINGS: HEMORRHAGE: There is an acute subdural hematoma on the left side of the falx measuring 9 mm in thickness. There is no mass effect. BRAIN: No mass effect or edema. No atrophy or chronic microvascular ischemic changes. VENTRICLES: Unremarkable. No hydrocephalus. CALVARIUM: Unremarkable. PARANASAL SINUSES: Unremarkable as visualized. No significant inflammatory changes. MASTOID AIR CELLS: Unremarkable as visualized. No inflammatory changes. OTHER FINDINGS: The report concurs with the preliminary [facility] report IMPRESSION: There is an acute subdural hematoma on the left side of the falx measuring 9 mm in thickness. There is no mass effect.
--- NOTE | 2017-08-09 09:18 | CT ---
PROCEDURE: CT HEAD WITHOUT CONTRAST. HISTORY: Follow up COMPARISON: 08/08/2017 TECHNIQUE: Axial computed tomography images were obtained through the head/brain without intravenous contrast. Radiation dose: Total exam DLP = 878 mGy-cm. This CT exam was performed using one or more of the following dose reduction techniques: Automated exposure control, adjustment of the mA and/or kV according to patient size, and/or use of iterative reconstruction technique. FINDINGS: HEMORRHAGE: There is an acute subdural hematoma on the left side of the falx measuring 9 mm in thickness. There is no mass effect. There is no change from the earlier study BRAIN: No mass effect or edema. No atrophy or chronic microvascular ischemic changes. VENTRICLES: Unremarkable. No hydrocephalus. CALVARIUM: Unremarkable. PARANASAL SINUSES: Unremarkable as visualized. No significant inflammatory changes. MASTOID AIR CELLS: Unremarkable as visualized. No inflammatory changes. OTHER FINDINGS: None. IMPRESSION: There is an acute subdural hematoma on the left side of the falx measuring 9 mm in thickness. There is no mass effect. There is no change from the earlier study
[2017-08-09] MEDS: guaiFENesin DM 200 mg-20 mg/10 ml UD PO PRN ×2 (09:29→21:06)
[2017-08-09 10:21] LABS: BASO # 0.04 K/mm3 (0.0-2.0); BASO % 0.9 % (0.0-3.0); EOS # 0.1 (0.0-0.7); EOS % 2.8 % (1.5-5.0); GRAN # 2.72 (1.4-6.5); HEMOGLOBIN 8.3 g/dL (14.0-18.0); LYMPH % 22.7 % (22.0-35.0); MEAN CELL VOLUME 95.7 fl (80.0-105.0); MEAN CORPUSCULAR HEMOGLOBIN 29.5 pg (25.0-35.0); MEAN CORPUSCULAR HGB CONC 30.9 g/dl (31.0-37.0); MEAN PLATELET VOLUME 11.7 fl (7.0-11.0); MONO # 0.5 (0.1-0.6); MONO % 10.6 % (1.0-6.0); RBC 2.81 10^6/uL (3.5-6.1); RED CELL DISTRIBUTION WIDTH 18.9 % (11.5-14.5); WHITE BLOOD COUNT 4.3 10^3/ul (4.5-11.0)
[2017-08-09 10:28] LABS: INR 1.48 (0.93-1.08); PARTIAL THROMBOPLASTIN TIME 29.7 Seconds (25.1-36.5); PROTHROMBIN TIME 17.1 SECONDS (9.4-12.5)
[2017-08-09 10:45] LABS: ALBUMIN 4.1 g/dL (3.0-4.8); CALCIUM 8.4 mg/dL (8.4-10.5)
--- NOTE | 2017-08-09 14:36 | CP.PCM.CON ---
History of Present Illness - History of Present Illness History of Present Illness: Hematology Oncology Consult Note for Dr. Patricia Consulted for ICH s/p mechanical fall HPI: 52 M with a PMHx of COPD, CAD with 4 stents, recently placed PPM, ESRD on HD MWF, IDDM2 and HTN presenting to [facility] from dialysis unit after sustaining a mechanical fall with trauma to the head resulting in a subdural hematoma. He stated that he has experienced multiple falls in the recent past few weeks and has experienced nose bleeds as well without picking. Patient had PPM placed on 06/28/17 and two YORDY placed in the LAD on 06/12/[address] Erickson. Patient was placed on Brilinta and ASA after YORDY placement, both last taken approximately 12 hours prior to presenting to the [facility]. Patient was seen and examined at bedside. Patient denied fever, chills, shortness of breath, changes in vision, dizziness, chest pains, abdominal pains, nausea, vomiting, diarrhea, or dysuria. PMH: As stated above PSH: Multiple cardiac caths, left cornea transplant and AV fistula in left arm Family History: Mother-CAD, IDDM2, HTN Social history: Denies tobacco, alcohol or illicit drug use; Lives at home with mother Allergies: insulin aspart, moxifloxacin, penicillin Home Medications: As per MAR Review of Systems - Review of Systems Review of Systems: as per HPI otherwise negative Past Patient History - Infectious Disease Hx of Infectious Diseases: None - Tetanus Immunizations Tetanus Immunization: Up to Date - Past Medical History & Family History Past Medical History?: Yes - Past Social History Smoking Status: Never Smoked - CARDIAC Hx Cardiac Disorders: Yes (CAD) Hx Hypertension: Yes - PULMONARY Hx Chronic Obstructive Pulmonary Disease (COPD): Yes - NEUROLOGICAL Hx Transient Ischemic Attacks (TIA): Yes - HEENT Hx HEENT Problems: Yes (BILATERAL EYE WITH BLURRY VISION) Hx Cataracts: Yes (HAD SX 05/29/12) Other/Comment: left eye cornea transplant,RENAL RETINOPATHY, glasses - RENAL Hx Renal Failure: Yes (ESRD (on hemodialysis 3x/wk)) - ENDOCRINE/METABOLIC Hx Diabetes Mellitus Type 2: Yes - HEMATOLOGICAL/ONCOLOGICAL Hx Anemia: Yes (With transfusions) - INTEGUMENTARY Hx Dermatological Problems: Yes (BILATERAL EDEMA TO UPPER AND LE,SKIN DRYNESS) - MUSCULOSKELETAL/RHEUMATOLOGICAL Hx Arthritis: Yes - GASTROINTESTINAL Hx Gastrointestinal Disorders: No - GENITOURINARY/GYNECOLOGICAL Hx Genitourinary Disorders: Yes (esrd on HD MWF) - PSYCHIATRIC Hx Psychophysiologic Disorder: No Hx Anxiety: Yes Hx Substance Use: No - SURGICAL HISTORY Hx Cardiac Catheterization: Yes Hx Cholecystectomy: Yes (08/15/12) Hx Coronary Stent: Yes (x2 monday06/13/17) Other/Comment: FISTULA/pacemaker 2 weeks ago - ANESTHESIA Hx Anesthesia: Yes Hx Anesthesia Reactions: No Hx Malignant Hyperthermia: No Meds Allergies/Adverse Reactions: Allergies Allergy/AdvReac Type Severity Reaction Status Date / Time insulin aspart [From Novolog] Allergy Intermediate ITCHING Verified 07/21/17 01: 26 moxifloxacin Allergy Intermediate ITCHING Verified 07/21/17 01:26 Penicillins Allergy Intermediate ITCHING Verified 07/21/17 01:26 - Medications Medications: Current Medications Albuterol/Ipratropium (Duoneb 3 Mg/0.5 Mg (3 Ml) Ud) 3 ml IH [id number] PRN PRN Reason: Shortness of Breath Atorvastatin Calcium (Lipitor) 40 mg PO DIN [facility] Calcium Acetate (Phoslo) 1,334 mg PO ACTID [facility] Ergocalciferol (Drisdol 50,000 Intl Units Cap) 1 cap PO WED [facility] Fenofibrate (Tricor) 145 mg PO DAILY [facility] Guaifenesin/Dextromethorphan (Robitussin Dm) 10 ml PO Q4H PRN PRN Reason: Cough Last Admin: 08/09/17 09:29 Dose: 10 ml Hydralazine HCl (Apresoline) 20 mg PO BID CARLOS Vancomycin HCl (Vancomycin 500mg In Ns) 500 mg in 100 mls @ 200 mls/hr IVPB MWF [facility] Insulin Detemir (Levemir) 25 unit SC HS [facility] Last Admin: 08/08/17 23:35 Dose: Not Given Insulin Human NPH (Humulin N) 70 units SC ACD CARLOS Insulin Human Regular (Humulin R Med) 0 units SC ACHS CARLOS PRN Reason: Protocol Last Admin: 08/09/17 12:39 Dose: 3 units Loratadine (Claritin) 10 mg PO DAILY [facility] Montelukast Sodium (Singulair) 10 mg PO HS [facility] Non-Formulary Medication (Multivitamin With Iron [Multivitamins With Iron]) 1 each PO DAILY [facility] Non-Formulary Medication (Nateglinide [Starlix]) 1 tab PO HS [facility] Pantoprazole Sodium (Protonix Inj) 40 mg IVP DAILY CARLOS Last Admin: 08/09/17 09:29 Dose: 40 mg Prednisone (Prednisone Tab) 10 mg PO DAILY CARLOS Pregabalin (Lyrica) 50 mg PO HS CARLOS Sodium Chloride ([place] Nasal [place]) 1 ml NS Q2H PRN PRN Reason: Nasal congestion Tamsulosin HCl (Flomax) 0.4 mg PO DAILY [facility] Tramadol HCl (Ultram) 50 mg PO TID PRN PRN Reason: Pain, moderate (4-7) Last Admin: 08/09/17 09:30 Dose: 50 mg Zolpidem Tartrate (Ambien) 5 mg PO HS PRN; Protocol PRN Reason: Insomnia Physical Exam - Constitutional Appears: No Acute Distress - Head Exam Head Exam: ATRAUMATIC, NORMAL INSPECTION, NORMOCEPHALIC - Eye Exam Eye Exam: EOMI, Normal appearance, PERRL Pupil Exam: NORMAL ACCOMODATION, PERRL - ENT Exam ENT Exam: Mucous Membranes Moist, Normal Exam - Respiratory Exam Respiratory Exam: Clear to Auscultation Bilateral, NORMAL BREATHING PATTERN - Cardiovascular Exam Cardiovascular Exam: REGULAR RHYTHM - GI/Abdominal Exam GI & Abdominal Exam: Normal Bowel Sounds, Soft. absent: Tenderness - Neurological Exam Neurological exam: Alert, CN II-XII Intact, Oriented x3, Reflexes Normal - Psychiatric Exam Psychiatric exam: Normal Affect, Normal Mood - Skin Skin Exam: Dry, Intact, Normal Color, Warm Results - Vital Signs Recent Vital Signs: Last Vital Signs Temp 97.4 F L 08/09/17 08:00 Pulse 63 08/09/17 13:20 Resp 19 08/09/17 13:20 BP 106/53 L 08/09/17 13:09 Pulse Ox 100 08/09/17 13:20 - Labs Result Diagrams: 08/09/17 10:00 08/09/17 10:00 Labs: Laboratory Results - last 24 hr 08/08/17 08/08/17 08/09/17 20:58 23:16 04:14 WBC RBC Hgb Hct MCV MCH MCHC RDW Plt Count MPV Gran % Lymph % (Auto) [place] % (Auto) Eos % (Auto) Baso % (Auto) Gran # Lymph # (Auto) [place] # (Auto) Eos # (Auto) Baso # (Auto) PT INR APTT Sodium Potassium Chloride Carbon Dioxide Anion Gap BUN Creatinine Est GFR ( Amer) Est GFR (Non-Af Amer) POC Glucose (mg/dL) 87 213 H Random Glucose Calcium Phosphorus Magnesium Total Bilirubin AST ALT Alkaline Phosphatase Total Protein Albumin Globulin Albumin/Globulin Ratio Blood Type B POSITIVE Antibody Screen Negative BBK History Checked Patient has bt 08/09/17 08/09/17 08/09/17 07:56 10:00 10:00 WBC 4.3 L RBC 2.81 L Hgb 8.3 L Hct 26.9 L MCV 95.7 MCH 29.5 MCHC 30.9 L RDW 18.9 H Plt Count 101 L MPV 11.7 H Gran % 63.0 Lymph % (Auto) 22.7 [place] % (Auto) 10.6 H Eos % (Auto) 2.8 Baso % (Auto) 0.9 Gran # 2.72 Lymph # (Auto) 1.0 L [place] # (Auto) 0.5 Eos # (Auto) 0.1 Baso # (Auto) 0.04 PT INR APTT Sodium 137 Potassium 6.2 H* Chloride 92 L Carbon Dioxide 27 Anion Gap 25 H BUN 60 H Creatinine 10.0 H* Est GFR ( Amer) 7 Est GFR (Non-Af Amer) 5 POC Glucose (mg/dL) 178 H Random Glucose 213 H Calcium 8.4 Phosphorus 7.7 H Magnesium 2.5 H Total Bilirubin 1.1 AST 75 H D ALT 44 Alkaline Phosphatase 70 Total Protein 8.2 Albumin 4.1 Globulin 4.1 Albumin/Globulin Ratio 1.0 L Blood Type Antibody Screen BBK History Checked 08/09/17 10:00 WBC RBC Hgb Hct MCV MCH MCHC RDW Plt Count MPV Gran % Lymph % (Auto) [place] % (Auto) Eos % (Auto) Baso % (Auto) Gran # Lymph # (Auto) [place] # (Auto) Eos # (Auto) Baso # (Auto) PT 17.1 H INR 1.48 H APTT 29.7 Sodium Potassium Chloride Carbon Dioxide Anion Gap BUN Creatinine Est GFR ( Amer) Est GFR (Non-Af Amer) POC Glucose (mg/dL) Random Glucose Calcium Phosphorus Magnesium Total Bilirubin AST ALT Alkaline Phosphatase Total Protein Albumin Globulin Albumin/Globulin Ratio Blood Type Antibody Screen BBK History Checked Assessment & Plan - Assessment and Plan (Free Text) Assessment: 52 year old male w/PMHx COPD, CAD with 4 stents, recently placed PPM, ESRD on HD MWF, IDDM2 and HTN that presented to [facility] s/p mechanical fall with trauma to the head resulting in a subdural hematoma evidenced by CT Head along the falx cerebri, measuring up to 1 cm in maximum thickness with no midline shift. Patient received platelet and FFP transfusion for Brilinta reversal. Repeat CT head shows stable hematoma. Neurosurgery Dr. Frost consulted, no surgical intervention at this time. Dr. Erickson Cardiology consulted, appreciate reccs. Continue to monitor clinical status, neurochecks. CBC, CMP, blood coags.
--- NOTE | 2017-08-09 15:26 | CP.PCM.PN ---
Subjective - Subjective Subjective: consult dictated stable small interhemispheic sdh intact and asymptomatic cl for dc from my standpoint rec hold all AC/Antiplatelet Tx 2 wks consider other agent when restarting Objective - Vital Signs/Intake and Output Vital Signs (last 24 hours): Temp Pulse Resp BP Pulse Ox 97.4 F L 63 19 106/53 L 100 08/09/17 08:00 08/09/17 13:20 08/09/17 13:20 08/09/17 13:09 08/09/17 13:20 Intake and Output: 08/09/17 08/09/17 06:59 18:59 Intake Total 1051 Balance 1051 - Medications Medications: Current Medications Albuterol/Ipratropium (Duoneb 3 Mg/0.5 Mg (3 Ml) Ud) 3 ml IH [id number] PRN PRN Reason: Shortness of Breath Atorvastatin Calcium (Lipitor) 40 mg PO DIN [facility] Calcium Acetate (Phoslo) 1,334 mg PO ACTID [facility] Ergocalciferol (Drisdol 50,000 Intl Units Cap) 1 cap PO WED [facility] Fenofibrate (Tricor) 145 mg PO DAILY [facility] Guaifenesin/Dextromethorphan (Robitussin Dm) 10 ml PO Q4H PRN PRN Reason: Cough Last Admin: 08/09/17 09:29 Dose: 10 ml Hydralazine HCl (Apresoline) 20 mg PO BID [facility] Vancomycin HCl (Vancomycin 500mg In Ns) 500 mg in 100 mls @ 200 mls/hr IVPB MWF [facility] Insulin Detemir (Levemir) 25 unit SC HS [facility] Last Admin: 08/08/17 23:35 Dose: Not Given Insulin Human NPH (Humulin N) 70 units SC ACD [facility] Insulin Human Regular (Humulin R Med) 0 units SC ACHS [facility] PRN Reason: Protocol Last Admin: 08/09/17 12:39 Dose: 3 units Loratadine (Claritin) 10 mg PO DAILY [facility] Montelukast Sodium (Singulair) 10 mg PO HS [facility] Non-Formulary Medication (Multivitamin With Iron [Multivitamins With Iron]) 1 each PO DAILY [facility] Non-Formulary Medication (Nateglinide [Starlix]) 1 tab PO HS [facility] Pantoprazole Sodium (Protonix Inj) 40 mg IVP DAILY [facility] Last Admin: 08/09/17 09:29 Dose: 40 mg Prednisone (Prednisone Tab) 10 mg PO DAILY [facility] Pregabalin (Lyrica) 50 mg PO HS [facility] Sodium Chloride ([place] Nasal [place]) 1 ml NS Q2H PRN PRN Reason: Nasal congestion Tamsulosin HCl (Flomax) 0.4 mg PO DAILY [facility] Tramadol HCl (Ultram) 50 mg PO TID PRN PRN Reason: Pain, moderate (4-7) Last Admin: 08/09/17 09:30 Dose: 50 mg Zolpidem Tartrate (Ambien) 5 mg PO HS PRN; Protocol PRN Reason: Insomnia - Labs Labs: 08/09/17 10:00 08/09/17 10:00 PT 17.1 SECONDS (9.4-12.5) H 08/09/17 10:00 INR 1.48 (0.93-1.08) H 08/09/17 10:00 APTT 29.7 Seconds (25.1-36.5) 08/09/17 10:00
--- NOTE | 2017-08-09 16:07 | HP ---
DATE OF SERVICE: 08/08/2017 CHIEF COMPLAINT: Fall and nose bleeding. HISTORY OF PRESENT ILLNESS: The patient is a 52-year-old male with past medical history of COPD; coronary artery disease; cardiac catheterization; coronary artery stents x2, has pacemaker; end-stage renal disease, on hemodialysis 3 times a week, but very noncompliant, he missed 4 days, he does not have his dialysis; has a history of diabetes mellitus; hypertension, came to the emergency room department status post accidental trip and fall while at the dialysis unit today, which prompted him to be sent for the evaluation in the Emergency Room Department. Patient states that he had been falling frequently over the past 1 to 2 weeks and has fallen, 2 episodes yesterday. Patient did not seek medical evaluation; however, patient states that he missed yesterday's dialysis due to oversleeping. Recently, patient found that he has had intermittent episodes of right nose bleed today as well as gait changes for past few days with difficulty of walking and frequently falling. Patient currently denies syncopal episodes or fever, chills, nausea, vomiting or diarrhea. Still complaining of shortness of breath and palpitation. No abdominal pain, no numbness or tingling. No loss of consciousness. No sick contact. Mother is sitting on the bedside also. Length of time discussion done with the mother and ER physician. PAST MEDICAL HISTORY: As above. History of coronary artery disease; COPD; TIA; diabetic neuropathy; diabetic nephropathy; diabetic retinopathy; anemia, status post blood transfusion. FAMILY HISTORY: Mother and brother have kidney failure. HABITS: Never smoked. No drugs. No ethanol. ALLERGIES: PATIENT IS ALLERGIC WITH INSULIN, MOXIFLOXACIN, PENICILLIN. HOME MEDICATIONS: Reviewed by wa Starlix, vitamin D, fenofibrate, iron, Zyrtec, insulin, hydralazine. REVIEW OF SYSTEMS: Patient is seen and examined at the bedside, looking comfortable. Nurse is getting IV line. At that moment, no chest pain, no palpitation, episode of nasal bleeding and fall. No headache. No dizziness. No fever. No chills. PHYSICAL EXAMINATION: VITAL SIGNS: Temperature 97.7, pulse 65, respiratory rate 18, blood pressure 105/62, pulse oximetry 100. HEENT: Head normocephalic. Eyes, PERRLA. Extraocular muscles intact. Conjunctivae clear. Nose patent. Mucous membrane moist. NECK: Supple, no carotid bruit. No JVD or thyromegaly. CHEST: Bilaterally symmetrical. HEART: S1, S2 positive. LUNGS: Clear to auscultation. ABDOMEN: Soft, bowel sounds present. No organomegaly. EXTREMITIES: No edema, no cyanosis. NEUROLOGICAL: Patient is awake, alert, follows simple commands. LABORATORY DATA: White blood cell is 12.5, hemoglobin 9.2, hematocrit 29.2, platelets 165. Sodium 143, potassium 5.5, BUN 83, creatinine 11.8, glucose 85. ASSESSMENT AND PLAN: The patient is a 52-year-old male with anemia; hyperkalemia; renal insufficiency, on hemodialysis, supposed to be, but he missed his dialysis; history of fall; nasal bleeding; multiple comorbidities, CAT scan of head done, showed acute subdural hematoma; frequent falls; epistaxis; weakness; end-stage renal disease, on hemodialysis 3 times a week; hypoglycemia; insulin-dependent diabetes mellitus. admitted the patient in the unit. Discussion done with Dr. Pinon multiple times, ER physician. Chest x-ray, CAT scan of head and electrocardiogram done. We will repeat labs. We will give emergency dialysis. Diana Kessler MD MTDD
[2017-08-09] MEDS: Insulin Human NPH 1 UNITS/0.01 ML SC SCH (17:10)
[2017-08-09] MEDS: Insulin Detemir 100 units/ml Vial (Levemir) SC SCH (21:48)
[2017-08-09] MEDS ORDERED: NATEGLINIDE PO SCH (22:00)
--- NOTE | 2017-08-09 22:28 | CON ---
DATE: 08/09/2017 REASON FOR CONSULTATION AND FOLLOWUP: Cardiac evaluation, history of recent stent placement, history of pacemaker, admitted with intracerebral bleed after a fall. BRIEF CLINICAL HISTORY: This is a 52-year-old male with past medical history of obesity, end-stage renal disease on dialysis, florid diabetes with all complications including diabetic retinopathy, nephropathy, legally blind, history of coronary artery disease, status post multiple stents, last stent 06/12/2017 in LAD after FFR was found to be significant, the patient needed a stent. Later on, the patient had a bradycardic episode, junctional bradycardia, requiring pacemaker on 06/27/2017. There was difficulty in sleeping, so this Monday, patient was changed from Ambien to Xanax. So the patient slept whole day on Monday and missed the dialysis. So Monday, came in for dialysis, when the patient was being weighed before dialysis, trying to put slipper on, he fell down and possibly hit. Later on, after the dialysis, patient was sent to CAT scan, found to have intracerebral bleed, so patient get admitted. Also complained of left upper extremity weakness. PAST MEDICAL HISTORY: Significant for coronary artery disease, florid diabetes, all complications of diabetes including diabetic retinopathy, nephropathy, legally blind and neuropathy, history of coronary artery disease, history of multiple stents, history of permanent pacemaker. History of most recent stent done in LAD on 06/12/2017 and found to be resistant to the Plavix by platelet aggregometry and patient is currently on Brilinta, history of permanent pacemaker because of junctional bradycardia, status post pacemaker on 06/27/2017. RECENT CARDIAC WORKUP: As follows; patient had PTCA of LAD done on 06/12/2017, two stents were placed. Prior to that patient had FFR done that was significant, so a stent was placed. Patient had last echo on 06/12/2017 that revealed ejection fraction 55%, moderate aortic regurgitation, mild valvular aortic stenosis, mild mitral regurgitation, moderate tricuspid regurgitation, RV systolic pressure 89, consistent with severe pulmonary hypertension. Mild by echo, but no aortic stenosis by cardiac catheterization. Patient underwent dual chamber pacemaker on 06/27/2017, which was MRI safe, when the patient presented with junctional bradycardia and symptomatic recurrent syncope. Patient is resistant to Plavix and currently on Brilinta. CURRENT MEDICATIONS: At home, patient is on prednisone, hydralazine, Ambient, vancomycin, Brilinta 90, Flomax, insulin, fenofibrate, cetirizine, [place], atorvastatin aspirin, and Xanax. ALLERGIES: ALLERGY TO INSULIN, , PENICILLIN. REVIEW OF SYSTEMS: As per HPI. PHYSICAL EXAMINATION: VITAL SIGNS: Temperature afebrile, heart rate 78, blood pressure 120/80. Height of the patient 5 feet 6 inches, weight of the patient 210 pounds, body mass index 33.9 kg/m2. HEENT: PERRLA. Extraocular muscles intact. NECK: Supple. No carotid bruit or thyromegaly. CHEST: Clear to auscultation. HEART: S1 and S2 regular. ABDOMEN: Soft. EXTREMITIES: Clubbing, cyanosis negative. LABORATORY DATA: Blood workup; WBC 4.5, hemoglobin 9.8, hematocrit 29.3, platelet count 165. Chemistry shows sodium 142, potassium 5.5, chloride 96, carbon dioxide 26, anion gap of 26, BUN 86, creatinine 11.8. EKG showed electronic pacemaker rhythm, heart rate 61. CAT scan of the head; acute subdural hematoma on the left side, 9 mm in thickness. No mass effect. Suggest followup. IMPRESSION: Status post fall, status post subdural hematoma, was on Brilinta, status post cardiac catheterization in 05/2017 with drug-eluting stent. Patient is resistant to Plavix, on Brilinta, history of permanent pacemaker 06/2017. RECOMMENDATIONS: In view of recent subdural hematoma, we will definitely stop the Brilinta, but definitely risk is high for subacute stent thrombosis. We will monitor closely, but the choice is very limited, otherwise subdural hematoma will expand and cause herniation of the brain and can lead to very catastrophic event. At the same time, holding Brilinta is also high risk, because patient can develop subacute thrombosis and get myocardial infarction and can have another catastrophe. So, it is very hard/difficult to choose between the two evils, but since the patient has hematoma, no choice, so we will hold it and repeat CAT scan this morning. We will monitor closely with CAT scan and cleared by Neurology, we will start baby aspirin and then restart Brilinta again when the situation allows us to do that. Overall, patient, currently is critical and decision making process is very critical- to hold Brilinta or not to hold Brilinta. One way, holding the Brilinta, we will prevent expansion of subdural hematoma, but at the same time, can lead to subacute stent thrombosis, so it is a double-edged sward and no clear-cut answer for this, but between the two choice, we will hold for now. We will monitor closely and repeat EKG in the morning. Encourage the patient to have dialysis, not to miss the dialysis. Emphasis made also to reduce the weight. Thank you, Dr. Kessler, for providing us the opportunity in taking care of the patient, Jason eBrger. Jarred Erickson MD
[2017-08-10] MEDS: guaiFENesin DM 200 mg-20 mg/10 ml UD PO PRN ×3 (01:49→20:52)
--- NOTE | 2017-08-10 04:33 | PN ---
DATE: 08/09/2017 SUBJECTIVE: Patient was seen and examined at the bedside, looking comfortable. No nausea, vomiting, or diarrhea. No hematuria or hematochezia. No swelling of the legs. No chest pain or palpitation. No headache. No dizziness. PHYSICAL EXAMINATION: VITAL SIGNS: Temperature 98.6, pulse 58, blood pressure 127/40, respiratory rate 16. HEENT: Head is normocephalic and atraumatic. Eyes: PERRLA. Extraocular muscles are intact. Conjunctivae are clear. Nose is patent. Mucous membrane is moist. NECK: Supple. No carotid bruit, JVD or thyromegaly. CHEST: Bilaterally symmetrical. HEART: S1 and S2 positive. LUNGS: Clear to auscultation. ABDOMEN: Soft. Bowel sounds present. No organomegaly. EXTREMITIES: No edema. No cyanosis. NEUROLOGIC: Patient is awake and alert. MEDICATIONS: Hydralazine, Claritin, vitamin D, DuoNeb, Flomax, insulin, Lipitor, Lyrica, Starlix, PhosLo, prednisone, Protonix, Robitussin. LABORATORY DATA: White blood cells 4.3, hemoglobin 8.3, hematocrit 26.9, platelets 101. Chemistry, sodium 137, potassium 6.2, BUN 60, creatinine 10, glucose 255, phosphorus 7.7. ASSESSMENT AND PLAN: Mr. Jason Berger is a 52-year-old male with leukopenia, anemia, thrombocytopenia, hyperkalemia, renal insufficiency, insulin dependent diabetes mellitus type 2, hyperphosphatemia, hypermagnesemia, abnormal liver function tests, seen by Dr. Brian Morse. Stable small interhemispheric bleed, intact and asymptomatic, hold all antiplatelets for 2 weeks. Consider other agents when restarted, as per neurosurgeon. advertising consultant, Dr. Jarred Erickson, clinical leader. The patient has a history of chronic obstructive pulmonary disease, coronary artery disease, 4 cardiac stents recently placed, PPM, end-stage renal disease, on hemodialysis 3 times a week, hypertension, status post mechanical fall with trauma to the head resulting in subdural hematoma evident by CT head along with falx cerebri measuring up to 1 cm in maximum thickness with no midline shift. The patient received platelets and fresh frozen plasma transfusion for Brilinta reversal. Repeat CT head shows stable hematoma. Neurosurgery, Dr. Frost consulted. No surgical intervention at this time. Dr. Erickson, cardiology's notes consulted, appreciated help. Continue to monitor clinical status, neuro checks and repeat labs. Appreciate Hematology input also. Gastrointestinal and deep vein thrombosis prophylaxis. Repeat labs. Diana Kessler MD MTDD
--- NOTE | 2017-08-10 04:51 | CON ---
DATE: 08/09/2017 REASON FOR CONSULTATION: Hyperkalemia, hypocalcemia, hypophosphatemia, subdural hematoma, ESRD. HISTORY OF PRESENTING ILLNESS: A 52-year-old male known to me from outpatient hemodialysis. Patient was brought to the emergency room after he fell while at dialysis yesterday. Patient reported multiple falls at home. He was a no-show for dialysis on Monday because he fell. He reports that he doubled up on his sleeping pills. He woke up and he did not know where he was and he tripped and fell. He denies any chest pain. Denies any palpitation. Denies any abdominal pain. He complains of generalized mild bodyache. He denies any nausea, vomiting or diarrhea. He is currently in the ICU. PAST MEDICAL AND SURGICAL HISTORY: CAD, PTCA and stents, NIDDM, hypertension, diabetic retinopathy, diabetic neuropathy, ESRD, anemia of chronic kidney disease, recent pacemaker placement, diabetic foot ulcers. FAMILY HISTORY: Hypertension, diabetes, ESRD. SOCIAL HISTORY: Ex-smoker, no alcohol use, no IV drug abuse. ALLERGIES: INSULIN, MOXIFLOXACIN, PENICILLIN. CURRENT MEDICATIONS: Ambien, hydralazine 20 b.i.d., Claritin, Drisdol, Flomax, insulin, Lipitor, Lyrica 50 at bedtime, PhosLo, prednisone 10, Protonix, Robitussin, Singulair, Fenofibrate, Ultram. REVIEW OF SYSTEMS: All systems are reviewed, pertinent positives as mentioned in the history of presenting illness, rest unremarkable. PHYSICAL EXAMINATION: GENERAL: Obese, middle-aged male, lying in bed in the ICU. VITAL SIGNS: Blood pressure 132/50, heart rate 61, respiratory rate 14, temperature 98.2. HEENT: Normocephalic, atraumatic. Positive pallor. NECK: Supple, no JVD. LUNGS: Bilateral equal air entry, bilateral equal expansion, bilateral rhonchi. CARDIAC: S1, S2. Regular rate and rhythm. No murmur, no rub. ABDOMEN: Obese, distended, soft, nontender, bowel sounds present. EXTREMITIES: Trace lower extremity edema, chronic stasis changes. INTAKE AND OUTPUT: 965, not charted. LABORATORY DATA: WBC 4, hemoglobin 8.3, hematocrit 27, platelets 101. Sodium 137, potassium 6.2, chloride 92, CO2 27, BUN 60, creatinine 10, glucose 213, calcium 8.4, phosphorus 7.7, magnesium 2.5. AST 75, ALT 44. Albumin 4.1. CT of the head, subdural hematoma on the left side measuring 9 mm with no mass effect. ASSESSMENT AND PLAN: 1. Status post fall at home, subdural hematoma. 2. Coronary artery disease, recent drug-eluting stent placement in May, was on Brilinta and Plavix. 3. Non-insulin dependent diabetes mellitus. 4. Diabetic nephropathy. 5. Diabetic retinopathy, legally blind. 6. End-stage renal disease. 7. Severe hyperphosphatemia. 8. Severe diabetic neuropathy. 9. Anemia of chronic kidney disease. PLAN: 1. At this time, his Brilinta and his aspirin has been discontinued. 2. Monitor the subdural hematoma. 3. Dialysis without heparin today. 4. Discontinue Ambien because it predisposes to disorientation. 5. Monitor fingersticks. 6. Increase phosphate binders. 7. Close monitoring in the ICU. 8. Case discussed with the ICU staff. 9. Case discussed with dialysis staff, to be dialyzed without heparin today. More than 35 minutes was spent in the care of this critically ill patient. Eva Malcolm MD
[2017-08-10] MEDS: Pantoprazole 40 mg EC Tab PO SCH (06:15)
[2017-08-10 08:12] LABS: ALB/GLOB RATIO 0.9 (1.1-1.8); CALCIUM 8.6 mg/dL (8.4-10.5)
[2017-08-10] MEDS: Insulin Reg-MEDIUM-Coverage SC SCH ×3 (08:28→17:59)
--- NOTE | 2017-08-10 08:57 | CON ---
DATE: 08/09/2017 PULMONARY CONSULTATION REFERRING PHYSICIAN: Diana Kessler MD. REASON FOR CONSULTATION: Status post subdural hematoma, sleep apnea syndrome, chronic lung disease. HISTORY OF PRESENT ILLNESS: This is a 52-year-old gentleman well known to me from office and previous admission with multiple medical issues including renal failure, dialysis dependent, chronic obstructive lung disease, pulmonary hypertension, coronary artery disease, cardiomyopathy, sleep apnea syndrome, bradycardia, recently got pacemaker, hypertension, diabetes, peripheral neuropathy, I believe . He did have some slip and fall, comes into emergency room, found to have subdural hematoma, received coagulopathic reversal. He has a history of coronary stent and been on Brilinta, got FFP and platelets, presently sitting up in a chair. The patient was noncompliant and his CPAP was returned; since then, he has not a good sleep, but feels sleepy and tired during the daytime. No hemoptysis. No hematemesis. No hematuria. No diarrhea reported. PAST MEDICAL HISTORY: As per history of present illness. ALLERGIES: TO INSULIN ASPART, MOXIFLOXACIN, PENICILLIN. SOCIAL HISTORY: Nonsmoker, nondrinker. FAMILY HISTORY: Positive for diabetes, hypertension and sleep apnea. MEDICATIONS: He is on DuoNeb every 6 hours p.r.n., insulin coverage, Levemir 25 units at bedtime, Protonix 40 mg daily, Robitussin 10 mL every 4 hour p.r.n., Ultram 50 mg three times a day. REVIEW OF SYSTEMS: No headache, no rhinitis. Had some epistaxis in the past. Short of breath with exertion. No chest pain. No nausea, no vomiting. No diarrhea. Has chronic leg pain. PHYSICAL EXAMINATION: GENERAL: Sitting up in a chair. VITAL SIGNS: Temperature is 98, heart rate is , respiratory is 14, blood pressure 106/53, pulse ox 99% on nasal cannula. HEENT: Moist mucous membrane. Crowded airway. Mallampati score is IV. NECK: Supple. No JVD. LUNGS: Has scattered rhonchi and wheezing. HEART: S1, S2. ABDOMEN: Soft, nontender. No organomegaly. EXTREMITIES: Has trace edema, tender to touch. NEUROLOGIC: Awake, alert, follows simple commands. LABORATORY DATA: Shows hemoglobin 8.3, hematocrit 26.9, WBC of 4.3, platelet count is 101. INR 1.48. PTT is 30. Sodium 137, potassium 6.2, chloride 92, bicarbonate 24, BUN 60, creatinine 10. Glucose 213. Calcium s 8.4, phosphorus is 7.7, magnesium 2.5. AST 75, ALT 44, alk phos is 70. Albumin is 4.1. CAT scan of the head done this morning shows persistent subdural hematoma, which is measurable 9 mm in thickness. There is no mass effect noted. IMPRESSION AND PLAN: Status post fall with subdural hematoma while on Brilinta, severe peripheral vascular disease with foot ulcers; chronic obstructive lung disease; obstructive sleep apnea syndrome; cardiac arrhythmia, requiring pacemaker; pulmonary hypertension; diabetes; renal failure, dialysis dependent; obesity. Case discussed with the nursing staff. We will place him on CPAP at 7 cm with 30% oxygen while sleeping. Continue nebulizer treatment. Add nasal saline every 6 hours. Add Singulair 10 mg daily. Restart his home medication except anticoagulation until cleared by Neurology. We will get Neurology to see the patient. Thank you and we will follow with you. Jarred Escalera MD
[2017-08-10 09:21] LABS: BASO # 0.04 K/mm3 (0.0-2.0); BASO % 0.9 % (0.0-3.0); EOS # 0.1 (0.0-0.7); EOS % 2.6 % (1.5-5.0); GRAN # 2.6 (1.4-6.5); GRAN % 57.4 % (50.0-68.0); HEMOGLOBIN 8.6 g/dL (14.0-18.0); LYMPH # 1.2 (1.2-3.4); LYMPH % 25.4 % (22.0-35.0); MEAN CELL VOLUME 96.2 fl (80.0-105.0); MEAN CORPUSCULAR HEMOGLOBIN 29.9 pg (25.0-35.0); MEAN PLATELET VOLUME 12.9 fl (7.0-11.0); MONO # 0.6 (0.1-0.6); MONO % 13.7 % (1.0-6.0); RBC 2.88 10^6/uL (3.5-6.1); RED CELL DISTRIBUTION WIDTH 18.9 % (11.5-14.5); WHITE BLOOD COUNT 4.5 10^3/ul (4.5-11.0)
[2017-08-10] MEDS ORDERED: Non Formulary Medication (Fenofibrate [Triglide] 160 MG) PO SCH (10:00)
[2017-08-10] MEDS: MULTIVITAMIN WITH IRON PO SCH (10:40)
--- NOTE | 2017-08-10 11:40 | CP.CCUPN ---
<Bryan Apodaca - Last Filed: 08/10/17 11:34> CCU Subjective - Physician Review Subjective (Free Text): ICU Progress Note Pt seen and examined at bedside. No acute overnight events. Patient states that he feels better overall. Denies any head pain. Denies CP, SOB, n/v/d, abdominal pain, fever, chills, MOON, or dizziness. CCU Objective - Vital Signs / Intake & Output Vital Signs (Last 4 hours): Vital Signs Pulse BP 08/10/17 09:39 60 114/46 L Intake and Output (Last 8hrs): Intake & Output 08/09/17 08/10/17 08/10/17 22:59 06:59 14:59 Intake Total 965 500 Output Total 1 Balance 965 499 Intake: Oral 640 500 Blood Product 325 Output: Urine/Stool Mix 1 - Physical Exam Head: Positive for: Atraumatic, Normocephalic Extroacular Muscles: Positive for: EOMI Mouth: Positive for: Moist Mucous Membranes Neck: Positive for: Normal Range of Motion. Negative for: MIDLINE TENDERNESS, Paraspinal Tenderness Respiratory/Chest: Positive for: Clear to Auscultation. Negative for: Wheezes, Rales, Retracting, Rhonchi Cardiovascular: Positive for: Regular Rate and Rhythm, Normal S1, S2. Negative for: Murmurs, Rub, Muffled Abdomen: Negative for: Tenderness, Distention, Peritoneal Signs, Rebound, Guarding Back: Positive for: Normal Inspection Neurological: Positive for: GCS=15, CN II-XII Intact, Speech Normal, Motor Func Grossly Intact, Normal Sensory Function Skin: Positive for: Warm, Dry, Normal Color Psychiatric: Positive for: Alert, Oriented x 3, Normal Insight, Normal Concentration - Medications Active Medications: Active Medications Generic Name Dose Route Start Last Admin Trade Name Freq PRN Reason Stop Dose Admin Albuterol/Ipratropium 3 ml 08/08/17 21:46 Duoneb 3 Mg/0.5 Mg (3 Ml) Ud IH [id number] PRN Shortness of Breath Atorvastatin Calcium 40 mg 08/09/17 17:00 08/09/17 17:10 Lipitor PO Not Given DIN CARLOS Calcium Acetate 1,334 mg 08/09/17 16:30 08/10/17 08:29 Phoslo PO 1,334 mg ACTID CARLOS Administration Ergocalciferol 1 cap 08/16/17 10:00 Drisdol 50,000 Intl Units Cap PO WED CARLOS Fenofibrate 145 mg 08/10/17 10:00 08/10/17 09:41 Tricor PO 145 mg DAILY CARLOS Administration Guaifenesin/Dextromethorphan 10 ml 08/09/17 08:49 08/10/17 09:55 Robitussin Dm PO 10 ml Q4H PRN Administration Cough Hydralazine HCl 20 mg 08/09/17 18:00 08/10/17 09:39 Apresoline PO 20 mg BID CARLOS Administration Vancomycin HCl 500 mg in 100 mls @ 200 mls/hr 08/11/17 10:00 Vancomycin 500mg In Ns IVPB MWF [facility] Insulin Human NPH 70 units 08/09/17 16:30 08/09/17 17:10 Humulin N SC Not Given ACD [facility] Insulin Human Regular 0 units 08/08/17 22:00 08/10/17 08:28 Humulin R Med SC Not Given ACHS [facility] Protocol Loratadine 10 mg 08/10/17 10:00 08/10/17 09:40 Claritin PO 10 mg DAILY [facility] Administration Montelukast Sodium 10 mg 08/09/17 22:00 08/09/17 21:06 Singulair PO 10 mg HS [facility] Administration Non-Formulary Medication 1 each 08/10/17 10:00 Multivitamin With Iron [Multivitamins With Iron] PO DAILY [facility] Non-Formulary Medication 1 tab 08/09/17 22:00 Nateglinide [Starlix] PO HS [facility] Pantoprazole Sodium 40 mg 08/10/17 06:00 08/10/17 06:15 Protonix Ec Tab PO 40 mg 0600 CARLOS Administration Prednisone 10 mg 08/10/17 10:00 08/10/17 09:46 Prednisone Tab PO 10 mg DAILY [facility] Administration Pregabalin 50 mg 08/09/17 22:00 08/09/17 21:06 Lyrica PO 50 mg HS [facility] Administration Sodium Chloride 1 ml 08/09/17 13:45 08/09/17 21:06 Mckinley Nasal [place] NS 1 dose Q2H PRN Administration Nasal congestion Tamsulosin HCl 0.4 mg 08/10/17 10:00 08/10/17 09:46 Flomax PO 0.4 mg DAILY [facility] Administration Tramadol HCl 50 mg 08/09/17 09:00 08/10/17 08:34 Ultram PO 50 mg TID PRN Administration Pain, moderate (4-7) - Patient Studies Lab Studies: Lab Studies 08/10/17 08/10/17 08/10/17 Range/Units 08:00 06:53 06:53 WBC 4.5 (4.5-11.0) 10^3/ul RBC 2.88 L (3.5-6.1) 10^6/uL Hgb 8.6 L (14.0-18.0) g/dL Hct 27.7 L (42.0-52.0) % MCV 96.2 (80.0-105.0) fl MCH 29.9 (25.0-35.0) pg MCHC 31.0 (31.0-37.0) g/dl RDW 18.9 H (11.5-14.5) % Plt Count 90 L (120.0-450.0) 10^3/uL MPV 12.9 H (7.0-11.0) fl Gran % 57.4 (50.0-68.0) % Lymph % (Auto) 25.4 (22.0-35.0) % [place] % (Auto) 13.7 H (1.0-6.0) % Eos % (Auto) 2.6 (1.5-5.0) % Baso % (Auto) 0.9 (0.0-3.0) % Gran # 2.60 (1.4-6.5) Lymph # (Auto) 1.2 (1.2-3.4) [place] # (Auto) 0.6 (0.1-0.6) Eos # (Auto) 0.1 (0.0-0.7) Baso # (Auto) 0.04 (0.0-2.0) K/mm3 Sodium 140 (132-148) mmol/L Potassium 4.5 (3.6-5.0) mmol/L Chloride 92 L (98-107) mmol/L Carbon Dioxide 32 (21-33) mmol/L Anion Gap 21 H (10-20) BUN 46 H (7-21) mg/dL Creatinine 7.8 H* D (0.8-1.5) mg/dl Est GFR ( Amer) 9 Est GFR (Non-Af Amer) 7 POC Glucose (mg/dL) (65-110) mg/dL Random Glucose 144 H (70-110) mg/dL Calcium 8.6 (8.4-10.5) mg/dL Phosphorus 6.9 H (2.5-4.5) mg/dL Magnesium 2.4 H (1.7-2.2) mg/dL Total Bilirubin 1.3 (0.2-1.3) mg/dL AST 115 H D (17-59) U/L ALT 53 (7-56) U/L Alkaline Phosphatase 70 (38-126) U/L Total Protein 8.3 (5.8-8.3) g/dL Albumin 4.0 (3.0-4.8) g/dL Globulin 4.3 gm/dL Albumin/Globulin Ratio 0.9 L (1.1-1.8) Triglycerides 124 (35-160) mg/dL Cholesterol 93 L (130-200) mg/dL LDL Cholesterol Direct 34 (0-129) mg/dL HDL Cholesterol 25 L (29-60) mg/dL TSH 3rd Generation 5.25 H (0.46-4.68) mIU/mL 08/09/17 08/09/17 08/09/17 Range/Units 21:40 16:14 11:27 WBC (4.5-11.0) 10^3/ul RBC (3.5-6.1) 10^6/uL Hgb (14.0-18.0) g/dL Hct (42.0-52.0) % MCV (80.0-105.0) fl MCH (25.0-35.0) pg MCHC (31.0-37.0) g/dl RDW (11.5-14.5) % Plt Count (120.0-450.0) 10^3/uL MPV (7.0-11.0) fl Gran % (50.0-68.0) % Lymph % (Auto) (22.0-35.0) % [place] % (Auto) (1.0-6.0) % Eos % (Auto) (1.5-5.0) % Baso % (Auto) (0.0-3.0) % Gran # (1.4-6.5) Lymph # (Auto) (1.2-3.4) [place] # (Auto) (0.1-0.6) Eos # (Auto) (0.0-0.7) Baso # (Auto) (0.0-2.0) K/mm3 Sodium (132-148) mmol/L Potassium (3.6-5.0) mmol/L Chloride (98-107) mmol/L Carbon Dioxide (21-33) mmol/L Anion Gap (10-20) BUN (7-21) mg/dL Creatinine (0.8-1.5) mg/dl Est GFR ( Amer) Est GFR (Non-Af Amer) POC Glucose (mg/dL) 255 H 170 H 217 H (65-110) mg/dL Random Glucose (70-110) mg/dL Calcium (8.4-10.5) mg/dL Phosphorus (2.5-4.5) mg/dL Magnesium (1.7-2.2) mg/dL Total Bilirubin (0.2-1.3) mg/dL AST (17-59) U/L ALT (7-56) U/L Alkaline Phosphatase (38-126) U/L Total Protein (5.8-8.3) g/dL Albumin (3.0-4.8) g/dL Globulin gm/dL Albumin/Globulin Ratio (1.1-1.8) Triglycerides (35-160) mg/dL Cholesterol (130-200) mg/dL LDL Cholesterol Direct (0-129) mg/dL HDL Cholesterol (29-60) mg/dL TSH 3rd Generation (0.46-4.68) mIU/mL Laboratory Results - last 24 hr 08/09/17 08/09/17 08/09/17 11:27 16:14 21:40 WBC RBC Hgb Hct MCV MCH MCHC RDW Plt Count MPV Gran % Lymph % (Auto) [place] % (Auto) Eos % (Auto) Baso % (Auto) Gran # Lymph # (Auto) [place] # (Auto) Eos # (Auto) Baso # (Auto) Sodium Potassium Chloride Carbon Dioxide Anion Gap BUN Creatinine Est GFR ( Amer) Est GFR (Non-Af Amer) POC Glucose (mg/dL) 217 H 170 H 255 H Random Glucose Calcium Phosphorus Magnesium Total Bilirubin AST ALT Alkaline Phosphatase Total Protein Albumin Globulin Albumin/Globulin Ratio Triglycerides Cholesterol LDL Cholesterol Direct HDL Cholesterol TSH 3rd Generation 08/10/17 08/10/17 08/10/17 06:53 06:53 08:00 WBC 4.5 RBC 2.88 L Hgb 8.6 L Hct 27.7 L MCV 96.2 MCH 29.9 MCHC 31.0 RDW 18.9 H Plt Count 90 L MPV 12.9 H Gran % 57.4 Lymph % (Auto) 25.4 [place] % (Auto) 13.7 H Eos % (Auto) 2.6 Baso % (Auto) 0.9 Gran # 2.60 Lymph # (Auto) 1.2 [place] # (Auto) 0.6 Eos # (Auto) 0.1 Baso # (Auto) 0.04 Sodium 140 Potassium 4.5 Chloride 92 L Carbon Dioxide 32 Anion Gap 21 H BUN 46 H Creatinine 7.8 H* D Est GFR ( Amer) 9 Est GFR (Non-Af Amer) 7 POC Glucose (mg/dL) Random Glucose 144 H Calcium 8.6 Phosphorus 6.9 H Magnesium 2.4 H Total Bilirubin 1.3 AST 115 H D ALT 53 Alkaline Phosphatase 70 Total Protein 8.3 Albumin 4.0 Globulin 4.3 Albumin/Globulin Ratio 0.9 L Triglycerides 124 Cholesterol 93 L LDL Cholesterol Direct 34 HDL Cholesterol 25 L TSH 3rd Generation 5.25 H Fingerstick Blood Sugar Results: 136 Critical Care Progress Note - Nutrition Nutrition: Nutrition Category Date Time Status Renal Diet [DIET] Diets 08/09/17 Breakfast Ordered Assessment/Plan - Assessment and Plan (Free Text) Assessment: 52 year old male with a past medical history significant for COPD, CAD with 4 stents, recently placed PPM, ESRD on HD MWF, IDDM2 and HTN who presents from dialysis unit after having fallen and hit his head. ICU admission for management of ICH, as CT head without contrast showed acute subdural hematoma along the falx cerebri, measuring up to 1 cm in maximum thickness. Patient received platelet and FFP transfusion for Brilinta reversal. Follow up CT stable. No further intervention for neurosurgery. At the request of cardiology, patient will be monitored overnight in ICU. Plan: Neuro: - CT Head on admission showed acute subdural hematoma along the falx cerebri, measuring up to 1 cm - Repeat CT head showed stable subdural hematoma - Transfused one unit of platelets and three units of FFP for reversal of Brilinta - Hold AC and antiplatelets for at least 2 weeks per neurosurgery - Neurochecks - HOB elevated above 30 degrees - Seizure and Fall precautions in place - Neurosurgery consulted, all recommendations appreciated Pulm: - Duonebs Q6 PRN - Maintain O2 sat 88-92% - Pulm consulted Cardio: - Maintain MAP > 65 - Holding dual antiplatelets in setting of ICH - Cardiology consulted GI: - Protonix for GI PPx - Renal diet Renal: - HD in ED on admission pulled 2L and yesterday pulled 2.5L - Hemodialysis M/W/F - Monitor electrolytes - Maintain normovolemia Endo: - SSI-Low ACHS and Levemir 25u HS - Accuchecks - Maintain Euglycemia Heme: - Normocytic Anemia likely 2/2 chronic disease - SCDs for DVT PPx - Heme/Onc consulted Patient seen and case discussed with attending, Dr. Webster. Isaac Apodaca, PGY1 <Devon Webster - Last Filed: 08/10/17 12:22> CCU Objective - Vital Signs / Intake & Output Vital Signs (Last 4 hours): Vital Signs Pulse BP 08/10/17 09:39 60 114/46 L Intake and Output (Last 8hrs): Intake & Output 08/09/17 08/10/17 08/10/17 22:59 06:59 14:59 Intake Total 965 500 Output Total 1 Balance 965 499 Intake: Oral 640 500 Blood Product 325 Output: Urine/Stool Mix 1 - Medications Active Medications: Active Medications Generic Name Dose Route Start Last Admin Trade Name Freq PRN Reason Stop Dose Admin Albuterol/Ipratropium 3 ml 08/08/17 21:46 Duoneb 3 Mg/0.5 Mg (3 Ml) Ud IH [id number] PRN Shortness of Breath Atorvastatin Calcium 40 mg 08/09/17 17:00 08/09/17 17:10 Lipitor PO Not Given DIN CARLOS Calcium Acetate 1,334 mg 08/09/17 16:30 08/10/17 08:29 Phoslo PO 1,334 mg ACTID CARLOS Administration Ergocalciferol 1 cap 08/16/17 10:00 Drisdol 50,000 Intl Units Cap PO WED CARLOS Fenofibrate 145 mg 08/10/17 10:00 08/10/17 09:41 Tricor PO 145 mg DAILY [facility] Administration Guaifenesin/Dextromethorphan 10 ml 08/09/17 08:49 08/10/17 09:55 Robitussin Dm PO 10 ml Q4H PRN Administration Cough Hydralazine HCl 20 mg 08/09/17 18:00 08/10/17 09:39 Apresoline PO 20 mg BID CARLOS Administration Vancomycin HCl 500 mg in 100 mls @ 200 mls/hr 08/11/17 10:00 Vancomycin 500mg In Ns IVPB MWF [facility] Insulin Human NPH 70 units 08/09/17 16:30 08/09/17 17:10 Humulin N SC Not Given ACD [facility] Insulin Human Regular 0 units 08/08/17 22:00 08/10/17 08:28 Humulin R Med SC Not Given ACHS [facility] Protocol Levothyroxine Sodium 25 mcg 08/11/17 06:00 Synthroid PO 0600 CARLOS Loratadine 10 mg 08/10/17 10:00 08/10/17 09:40 Claritin PO 10 mg DAILY [facility] Administration Montelukast Sodium 10 mg 08/09/17 22:00 08/09/17 21:06 Singulair PO 10 mg HS [facility] Administration Non-Formulary Medication 1 each 08/10/17 10:00 Multivitamin With Iron [Multivitamins With Iron] PO DAILY [facility] Non-Formulary Medication 1 tab 08/09/17 22:00 Nateglinide [Starlix] PO HS [facility] Pantoprazole Sodium 40 mg 08/10/17 06:00 08/10/17 06:15 Protonix Ec Tab PO 40 mg 0600 CARLOS Administration Prednisone 10 mg 08/10/17 10:00 08/10/17 09:46 Prednisone Tab PO 10 mg DAILY [facility] Administration Pregabalin 50 mg 08/09/17 22:00 08/09/17 21:06 Lyrica PO 50 mg HS [facility] Administration Sodium Chloride 1 ml 08/09/17 13:45 08/09/17 21:06 Mckinley Nasal [place] NS 1 dose Q2H PRN Administration Nasal congestion Tamsulosin HCl 0.4 mg 08/10/17 10:00 08/10/17 09:46 Flomax PO 0.4 mg DAILY [facility] Administration Tramadol HCl 50 mg 08/09/17 09:00 08/10/17 08:34 Ultram PO 50 mg TID PRN Administration Pain, moderate (4-7) - Patient Studies Lab Studies: Microbiology Studies 08/09/17 00:10 MRSA Culture (Admit) - Final Nose MRSA NOT DETECTED Lab Studies 08/10/17 08/10/17 08/10/17 Range/Units 08:00 06:53 06:53 WBC 4.5 (4.5-11.0) 10^3/ul RBC 2.88 L (3.5-6.1) 10^6/uL Hgb 8.6 L (14.0-18.0) g/dL Hct 27.7 L (42.0-52.0) % MCV 96.2 (80.0-105.0) fl MCH 29.9 (25.0-35.0) pg MCHC 31.0 (31.0-37.0) g/dl RDW 18.9 H (11.5-14.5) % Plt Count 90 L (120.0-450.0) 10^3/uL MPV 12.9 H (7.0-11.0) fl Gran % 57.4 (50.0-68.0) % Lymph % (Auto) 25.4 (22.0-35.0) % [place] % (Auto) 13.7 H (1.0-6.0) % Eos % (Auto) 2.6 (1.5-5.0) % Baso % (Auto) 0.9 (0.0-3.0) % Gran # 2.60 (1.4-6.5) Lymph # (Auto) 1.2 (1.2-3.4) [place] # (Auto) 0.6 (0.1-0.6) Eos # (Auto) 0.1 (0.0-0.7) Baso # (Auto) 0.04 (0.0-2.0) K/mm3 Sodium 140 (132-148) mmol/L Potassium 4.5 (3.6-5.0) mmol/L Chloride 92 L (98-107) mmol/L Carbon Dioxide 32 (21-33) mmol/L Anion Gap 21 H (10-20) BUN 46 H (7-21) mg/dL Creatinine 7.8 H* D (0.8-1.5) mg/dl Est GFR ( Amer) 9 Est GFR (Non-Af Amer) 7 POC Glucose (mg/dL) (65-110) mg/dL Random Glucose 144 H (70-110) mg/dL Calcium 8.6 (8.4-10.5) mg/dL Phosphorus 6.9 H (2.5-4.5) mg/dL Magnesium 2.4 H (1.7-2.2) mg/dL Total Bilirubin 1.3 (0.2-1.3) mg/dL AST 115 H D (17-59) U/L ALT 53 (7-56) U/L Alkaline Phosphatase 70 (38-126) U/L Total Protein 8.3 (5.8-8.3) g/dL Albumin 4.0 (3.0-4.8) g/dL Globulin 4.3 gm/dL Albumin/Globulin Ratio 0.9 L (1.1-1.8) Triglycerides 124 (35-160) mg/dL Cholesterol 93 L (130-200) mg/dL LDL Cholesterol Direct 34 (0-129) mg/dL HDL Cholesterol 25 L (29-60) mg/dL TSH 3rd Generation 5.25 H (0.46-4.68) mIU/mL 08/09/17 08/09/17 08/09/17 Range/Units 21:40 16:14 11:27 WBC (4.5-11.0) 10^3/ul RBC (3.5-6.1) 10^6/uL Hgb (14.0-18.0) g/dL Hct (42.0-52.0) % MCV (80.0-105.0) fl MCH (25.0-35.0) pg MCHC (31.0-37.0) g/dl RDW (11.5-14.5) % Plt Count (120.0-450.0) 10^3/uL MPV (7.0-11.0) fl Gran % (50.0-68.0) % Lymph % (Auto) (22.0-35.0) % [place] % (Auto) (1.0-6.0) % Eos % (Auto) (1.5-5.0) % Baso % (Auto) (0.0-3.0) % Gran # (1.4-6.5) Lymph # (Auto) (1.2-3.4) [place] # (Auto) (0.1-0.6) Eos # (Auto) (0.0-0.7) Baso # (Auto) (0.0-2.0) K/mm3 Sodium (132-148) mmol/L Potassium (3.6-5.0) mmol/L Chloride (98-107) mmol/L Carbon Dioxide (21-33) mmol/L Anion Gap (10-20) BUN (7-21) mg/dL Creatinine (0.8-1.5) mg/dl Est GFR ( Amer) Est GFR (Non-Af Amer) POC Glucose (mg/dL) 255 H 170 H 217 H (65-110) mg/dL Random Glucose (70-110) mg/dL Calcium (8.4-10.5) mg/dL Phosphorus (2.5-4.5) mg/dL Magnesium (1.7-2.2) mg/dL Total Bilirubin (0.2-1.3) mg/dL AST (17-59) U/L ALT (7-56) U/L Alkaline Phosphatase (38-126) U/L Total Protein (5.8-8.3) g/dL Albumin (3.0-4.8) g/dL Globulin gm/dL Albumin/Globulin Ratio (1.1-1.8) Triglycerides (35-160) mg/dL Cholesterol (130-200) mg/dL LDL Cholesterol Direct (0-129) mg/dL HDL Cholesterol (29-60) mg/dL TSH 3rd Generation (0.46-4.68) mIU/mL Laboratory Results - last 24 hr 08/09/17 08/09/17 08/09/17 11:27 16:14 21:40 WBC RBC Hgb Hct MCV MCH MCHC RDW Plt Count MPV Gran % Lymph % (Auto) [place] % (Auto) Eos % (Auto) Baso % (Auto) Gran # Lymph # (Auto) [place] # (Auto) Eos # (Auto) Baso # (Auto) Sodium Potassium Chloride Carbon Dioxide Anion Gap BUN Creatinine Est GFR ( Amer) Est GFR (Non-Af Amer) POC Glucose (mg/dL) 217 H 170 H 255 H Random Glucose Calcium Phosphorus Magnesium Total Bilirubin AST ALT Alkaline Phosphatase Total Protein Albumin Globulin Albumin/Globulin Ratio Triglycerides Cholesterol LDL Cholesterol Direct HDL Cholesterol TSH 3rd Generation 08/10/17 08/10/17 08/10/17 06:53 06:53 08:00 WBC 4.5 RBC 2.88 L Hgb 8.6 L Hct 27.7 L MCV 96.2 MCH 29.9 MCHC 31.0 RDW 18.9 H Plt Count 90 L MPV 12.9 H Gran % 57.4 Lymph % (Auto) 25.4 [place] % (Auto) 13.7 H Eos % (Auto) 2.6 Baso % (Auto) 0.9 Gran # 2.60 Lymph # (Auto) 1.2 [place] # (Auto) 0.6 Eos # (Auto) 0.1 Baso # (Auto) 0.04 Sodium 140 Potassium 4.5 Chloride 92 L Carbon Dioxide 32 Anion Gap 21 H BUN 46 H Creatinine 7.8 H* D Est GFR ( Amer) 9 Est GFR (Non-Af Amer) 7 POC Glucose (mg/dL) Random Glucose 144 H Calcium 8.6 Phosphorus 6.9 H Magnesium 2.4 H Total Bilirubin 1.3 AST 115 H D ALT 53 Alkaline Phosphatase 70 Total Protein 8.3 Albumin 4.0 Globulin 4.3 Albumin/Globulin Ratio 0.9 L Triglycerides 124 Cholesterol 93 L LDL Cholesterol Direct 34 HDL Cholesterol 25 L TSH 3rd Generation 5.25 H EKG/Cardiology Studies: Cardiology / EKG Studies 08/11/17 07:00 ELECTROCARDIOGRAM Routine Comment: Reason For Exam: CAD PRE OP:: N Does Patient Have a Pacemaker?: No Critical Care Progress Note - Nutrition Nutrition: Nutrition Category Date Time Status Renal Diet [DIET] Diets 08/09/17 Breakfast Ordered Assessment/Plan - Assessment and Plan (Free Text) Plan: Patient seen and examined on rounds, agree with note with following additions/ exceptions: Patient is 52 year old male w/PMHx COPD, CAD with 4 stents, recently placed PPM , ESRD on HD MWF, IDDM2 and HTN who presents from dialysis unit after having fallen and hit his head. CT head without contrast showed acute subdural hematoma along the falx cerebri, measuring up to 1 cm in maximum thickness. Patient received platelet and FFP transfusion for Brilinta reversal. Repeat CT head stable Currently afebrile, HD stable, comfortable in NAD, neurosurgery consulted, no intervention at this time. Non focal neurological exam. SDH ESRD on HD HTN CAD with stents COPD Recommend: - supp o2 as needed - panculture - BP control - Hold ASA, brillinta for 2 weeks as per neurosurgery - follow up NSG, cardiology - Statin - HD as per renal - GI ppx - DVT ppx, SCDs - stable, monitor in MICU
--- NOTE | 2017-08-10 13:12 | CON ---
HISTORY OF PRESENT ILLNESS: This is a rather unfortunate gentleman with multiple medical problems including renal failure, on dialysis; has cardiac disease with stenting, was placed on an antiplatelet agent and had several falls over the past couple of weeks, the most significant was a couple of days ago; according to the hospital, CT of the brain documented an interhemispheric subdural hematoma and he was admitted for observation. On interviewing him today, he really has no complaints at all. No headache or motor sensory symptoms, etc. He does have a longstanding history of some mild left-sided weakness. His past medical history, medications, allergies, social history, etc. reviewed in the EMR. PHYSICAL EXAMINATION: He has a [place] coma score of 15. He is bright , awake, alert. Speech and mental status are appropriate. Pupils are equally active. EOMs are full. Lower cranial nerves are all intact. He has no drift. He has really very minimal weakness noted in the left upper extremity, a little bit more in the left lower extremity. Right side is all intact. CT of the brain done last night and repeated this morning basically showed relatively small posterior frontal interhemispheric subdural with no significant mass effect. IMPRESSION AND PLAN: The patient is stable from my standpoint. This is a relatively small hematoma to begin with that is documented to be radiographically stable. The patient is intact and asymptomatic. He is cleared for discharge from my standpoint. I will certainly recommend holding off any type of anticoagulation or antiplatelet agent for the next two weeks. Additionally, when he is restarted may be given to perhaps a different agent as obviously he has had both an intracranial hemorrhage and persistent nosebleeds from this agent. Brian Morse MD
--- NOTE | 2017-08-10 16:49 | PN ---
DATE: 08/10/2017 REASON FOR CONSULTATION AND FOLLOWUP: Cardiac evaluation, history of recently stent placed, history of pacemaker, admitted with intracranial bleed after a fall. SUBJECTIVE: The patient denies any chest pain, shortness of breath, any palpitation, although he threw up and no appetite. OBJECTIVE: GENERAL: Not in apparent distress, lying flat in the bed. No chest pain, no shortness of breath, no palpitation. VITAL SIGNS: Temperature afebrile, heart rate 60, blood pressure 114/46. HEENT: PERRLA. Extraocular muscles intact. NECK: Supple. No carotid bruit. No thyromegaly. CHEST: Clear to auscultation. HEART: S1 and S2, regular. ABDOMEN: Soft. EXTREMITIES: Clubbing and cyanosis negative. LABORATORY DATA: WBC 4.5, hemoglobin 8.6, hematocrit 27.7, and platelet count 90. Chemistry shows sodium 140, potassium 4.5, chloride 92, carbon dioxide 32, anion gap of 21. BUN 46, creatinine 7.8. TSH 5.25. Total protein 8, albumin 4, albumin-globulin ratio was 0.9. Triglycerides 124, total cholesterol 93, LDL 34, HDL 25, hemoglobin A1c pending. IMPRESSION: Status post fall, status post subdural hematoma, repeat CAT scan unchanged yesterday, history of recently a stent placed, dual stent in LAD, drug-coated stent, on 06/12/2017, history of permanent pacemaker because of symptomatic bradycardia on 06/27/2017, obesity, diabetes, hypertension, hyperlipidemia, end-stage renal disease on dialysis, full-blown complication of diabetes including diabetic nephropathy, retinopathy, legally blind, and neuropathy. RECOMMENDATIONS: Plavix and aspirin on hold as per neurosurgical recommendations for 2 weeks and if remain stable, we will start first baby aspirin, then Brilinta. Though holding the aspirin and Plavix both dual antiplatelet therapy in a patient who has recently a stent placed on 06/12/2017, is very high risk. The patient can have subacute stent thrombosis, but the choice is very limited. Otherwise, subdural hematoma can extend. Discussed with the patient. Discussed with Dr. Devon Webster, armature rewinder. We will monitor closely. We will leave for 24 hours in the Intensive Care Unit. We will repeat EKG in the morning. We will follow with you. Mohriley Erickson MD [facility] # [id number]
[2017-08-10] MEDS: Insulin Human NPH 1 UNITS/0.01 ML SC SCH (17:58)
--- NOTE | 2017-08-10 21:37 | PN ---
DATE: 08/10/2017 SUBJECTIVE: The patient is seen, lying in bed in the ICU. He is tachypneic. He appears to have labored respirations especially when he talks. He denies any chest tightness. He denies any palpitations. He denies any abdominal pain. He denies any nausea, vomiting, or diarrhea. PHYSICAL EXAMINATION: GENERAL: Middle-aged male, lying in bed in the ICU. VITAL SIGNS: Blood pressure 140/46, heart rate 60, respiratory rate 18, temperature 98.2. HEENT: Normocephalic, atraumatic, positive pallor. NECK: Supple, no JVD. LUNGS: Bilateral rhonchi, bilateral equal air entry. CARDIAC: S1 and S2, regular rate and rhythm, no murmur, no rub. ABDOMEN: Obese, distended, soft, nontender, bowel sounds present. EXTREMITIES: Chronic stasis changes, 1+ pitting edema of the lower extremities. INTAKE AND OUTPUT: 1465/not charted. LABORATORY DATA: WBC 4.5, hemoglobin 8.6, hematocrit 27.7, and platelets 90. Sodium 140, potassium 4.5, chloride 92, CO2 of 32. BUN 46, creatinine 7.8. Glucose 144. Calcium 8.6, phosphorus 6.9, magnesium 2.4. AST 115, ALT 53, albumin 4. TSH 5.25. CURRENT MEDICATIONS: Apresoline 20 b.i.d., loratadine 10, DuoNeb, Flomax 0.4, insulin, Lipitor 40, Lyrica 50 at bedtime, Starlix mg, PhosLo two tablets t.i.d. with meals, prednisone 10, Protonix, Singulair, Synthroid, TriCor, Ultram, vancomycin 500 Monday, Monday, and Monday. ASSESSMENT: 1. Intracranial hemorrhage/subdural hematoma secondary to fall. The patient was on anticoagulation. 2. Coronary artery disease, percutaneous transluminal coronary angioplasty and stents, recent pacemaker placement, recent stent placement. 3. [id number] diabetes mellitus. 4. Hypertension. 5. End-stage renal disease. 6. Anemia of chronic kidney disease. 7. Severe hyperphosphatemia. 8. Diabetic neuropathy. 9. Multiple falls at home. PLAN: 1. The patient received FFP to reverse his Brilinta. 2. Monitor the subdural hematoma. 3. Ultrafiltration today to remove 2 kilos. 4. Renal diet. 5. Monitor fingersticks and continue insulin coverage. 6. Continue vancomycin which he was receiving for diabetic foot. 8. Continue respiratory treatments and prednisone. 9. Case discussed with the ICU staff at length, case discussed with dialysis staff, more than 35 minutes spent in the care of this critically ill patient. Eva Malcolm MD
[2017-08-10] MEDS: NATEGLINIDE PO SCH (22:25)
--- NOTE | 2017-08-11 02:24 | PN ---
DATE: 08/10/2017 PULMONARY PROGRESS NOTE REFERRING PHYSICIAN: Diana Kessler MD. SUBJECTIVE: He is sitting at side of the bed, having dinner. Night was unremarkable. CPAP was not placed on. No headache, no rhinitis. No nausea, no vomiting, no diarrhea. No abdominal pain. No leg swelling. OBJECTIVE: GENERAL: In no acute distress. VITAL SIGNS: Temperature is 98, heart rate 60, respiratory rate is 14, blood pressure 166/38, pulse of 97% on nasal cannula. HEENT: Moist mucous membrane. Crowded airway. Mallampati score is 4. NECK: Supple. JVD. LUNGS: Have a fair airflow with rhonchi. HEART: S1 and S2. ABDOMEN: Soft, nontender, no organomegaly. EXTREMITIES: No edema. NEUROLOGIC: Awake and alert. Follows simple command. MEDICATIONS: He is on hydralazine 20 mg twice a day, loratadine 10 mg daily, vitamin D 50,000 units weekly, DuoNeb every 6 hour p.r.n., Flomax 0.4 mg daily, insulin coverage, Lipitor 40 mg daily, Lyrica 50 mg at bedtime, multivitamins daily, Starlix 1 tablet at bedtime, nasal saline one spray to each nostril every 2 hour p.r.n., PhosLo three times a day, prednisone 10 mg daily, Protonix 40 mg daily, Robitussin 10 mg every 4 hours p.r.n., Singulair 10 mg at bedtime, Synthroid 25 mcg daily, fenofibrate 145 mcg daily, Ultram 50 mg three times a day p.r.n.; vancomycin 500 mg, Monday, Monday, Monday. LABORATORY DATA: Shows hemoglobin 8.6, hematocrit 27.7, WBC 4.5, platelet count is 90. Sodium 140, potassium 4.5, chloride 92, bicarbonate 32, BUN 46, creatinine 7.8, glucose 144, calcium 8.6, phosphorus 6.9, magnesium 2.4, AST 115, ALT 53, alk phos is 70. Albumin is 4. Cholesterol is 93. TSH is 5.25. IMPRESSION AND PLAN: Status post fall with subdural hematoma while on Brilinta, severe peripheral vascular disease with left foot ulcer, chronic obstructive lung disease, obstructive sleep apnea syndrome, cardiac arrhythmia requiring pacemaker, pulmonary hypertension, diabetes, renal failure, dialysis dependent, obesity. Pulmonary point of view, doing okay. Encourage CPAP use. Keep head at 45 degrees. Bronchodilator. Decrease prednisone to 5 mg daily. Gastric prophylaxis. Will benefit from therapy. Thank you and we will follow with you. Jarred Escalera MD
--- NOTE | 2017-08-11 05:44 | PN ---
DATE: 08/10/2017 SUBJECTIVE: Patient is a 52-year-old male. Patient was seen and examined at the bedside on 08/10/2017, sitting on the bed, feels better. No acute overnight event happened. No fever, no chills. No nausea, vomiting, diarrhea. Appetite is appropriate. No abdominal pain. No headache, no dizziness. PHYSICAL EXAMINATION: VITAL SIGNS: Temperature 98.6, pulse 60, blood pressure 114/46. HEENT: Head normocephalic and atraumatic. Eyes: PERRLA. Extraocular muscles intact. Conjunctivae clear. Nose patent. Mucous membrane is moist. NECK: Supple. No carotid bruit, no JVD, or thyromegaly. CHEST: Bilaterally symmetrical. HEART: S1 and S2 positive. LUNGS: Clear to auscultation. ABDOMEN: Soft. Bowel sounds present. No organomegaly. EXTREMITIES: No edema. No cyanosis. NEUROLOGIC: Patient is awake and alert. Follows simple commands. MEDICATIONS: DuoNeb, Lipitor, PhosLo, vitamin D, TriCor, hydralazine, vancomycin, insulin, Claritin, Singulair, Protonix, prednisone, tamsulosin, tramadol. LABORATORY DATA: White blood cells 4.5, hemoglobin 8.6, hematocrit 27.7, platelets 90. BUN 46, creatinine 7.8, potassium 6.9. AST 115, ALT 53. ASSESSMENT AND PLAN: Mr. Jason Berger, a 52-year-old male with multiple medical problems, insulin-dependent diabetes mellitus type 2 noncontrolled, diabetic retinopathy, diabetic nephropathy, diabetic neuropathy, getting dialysis 3 times a week, history of chronic obstructive pulmonary disease, coronary artery disease with 4 cardiac stents, recently placed permanent pacemaker, history of fall. CT of head without contrast showed acute subdural hematoma along with falx cerebri measuring up to 1 cm in maximum thickness. Patient received platelet and fresh frozen plasma transfusion for Brilinta reversal. Repeat CT scan of the head. Currently afebrile, on hemodialysis, stable and comfortable. According to neurosurgeon, no surgery, no intervention at this time. No focal neurological deficit. Hypertension, chronic obstructive pulmonary disease. Continue supplemental oxygen, needed a panculture, blood pressure control. Hold aspirin and Brilinta for 2 weeks as per Neurosurgery. Continue statin. Gastrointestinal, deep vein thrombosis prophylaxis. Repeat labs. We will follow up. Diana Kessler MD
[2017-08-11] MEDS: Levothyroxine 25 MCG TAB PO SCH (06:12)
[2017-08-11] MEDS: Pantoprazole 40 mg EC Tab PO SCH (06:12)
[2017-08-11 06:50] LABS: BASO # 0.03 K/mm3 (0.0-2.0); BASO % 0.6 % (0.0-3.0); EOS # 0.1 (0.0-0.7); EOS % 2.3 % (1.5-5.0); GRAN # 3.01 (1.4-6.5); GRAN % 56.7 % (50.0-68.0); HEMOGLOBIN 9.1 g/dL (14.0-18.0); LYMPH # 1.6 (1.2-3.4); LYMPH % 30.2 % (22.0-35.0); MEAN CORPUSCULAR HGB CONC 31.6 g/dl (31.0-37.0); MEAN PLATELET VOLUME 12.2 fl (7.0-11.0); MONO # 0.5 (0.1-0.6); MONO % 10.2 % (1.0-6.0); RBC 3.03 10^6/uL (3.5-6.1); RED CELL DISTRIBUTION WIDTH 18.8 % (11.5-14.5); WHITE BLOOD COUNT 5.3 10^3/ul (4.5-11.0)
[2017-08-11 07:22] LABS: CALCIUM 9.1 mg/dL (8.4-10.5)
--- NOTE | 2017-08-11 07:54 | PN ---
DATE: 08/10/2017 This is [facility] visit in the Intensive Care Unit. For Dr. Patricia. SUBJECTIVE: The patient is a 52-year-old male seen lying awake in bed, in no acute distress this visit, status post dialysis as per Dr. Malcolm, his renal solutions market consultant. The patient was admitted via the emergency room and admitted to the Intensive Care Unit after having a significant fall with trauma to his head resulting in subdural hematoma with nose bleeds. The patient's kidney function was significantly compromised with neurosurgical consult with Dr. Frost appreciated with no surgical intervention. However, the patient's potassium was significantly elevated at 6.2 with a creatinine of 11.8, post dialysis his potassium is now 4.5 with a creatinine of 7.8 and the patient is feeling significantly improved. PHYSICAL EXAMINATION: VITAL SIGNS: Temperature in this patient is 98.2, pulse of 60, respirations 13, blood pressure 166/38, pulse ox 97%. HEENT: Unremarkable. NECK: Supple. HEART: Regular rate. LUNGS: Clear. ABDOMEN: Obese, soft, nontender. EXTREMITIES: No edema. SKIN: Warm and dry. NEUROLOGIC: Awake and alert this visit. LABORATORY DATA: The patient's labs were done, white blood cell count of 4.5, hemoglobin of 8.6 up from 8.3 yesterday, hematocrit of 27.7, platelet count of 90,000. His chem metabolic panel shows a normal chem metabolic panel with a creatinine of 7.8 today with a BUN of 46. Phosphorus is 6.9. AST of 115 with a TSH of 5.2. His INR yesterday was 1.48. The patient's CAT scan of the head was done yesterday, it was read as acute subdural hematoma on the left side of the falx measuring 9 mm in thickness. There was no mass effect, no change from the earlier study. ASSESSMENT: For this patient is that of status post fall with subdural hematoma, thrombocytopenia, anemia of chronic kidney disease with dialysis, diabetes mellitus, electrolyte imbalance, abnormal LFTs, obesity, chronic obstructive pulmonary disease, atherosclerotic cardiovascular disease status post 4 stents. PLAN: For this patient after conservation with Dr. Patricia is to continue with present medical regimen. It should be noted that the patient did have neurosurgical evaluation with no surgery planned. He had reversal of his Brilinta after receiving fresh frozen plasma and platelets with consideration for Aranesp for his anemia as per Dr. Malcolm, renal solutions market consultant with his dialysis to continue as indicated. There is consideration for the patient to be out of bed to the chair as per solutions market consultant's recommendations with prognosis of this patient guarded. This is a complex patient with a comprehensive medically necessary visit carried out in excess of 30 minutes of [id number] time in the Intensive Care Unit with the patient's testing and review with physical exam, and questions answered to his satisfaction. Prognosis for this patient is guarded. Jayson Earl MD
[2017-08-11] MEDS: Insulin Reg-MEDIUM-Coverage SC SCH ×3 (08:00→23:13)
[2017-08-11] MEDS: Vancomycin 500mg in NS 500 MG/100 ML BAG IVPB SCH (09:28)
--- NOTE | 2017-08-11 09:30 | CARD ---
APPROVED REPORT EKG Measurement Heart [id number] <Conclusion> Electronic ventricular pacemaker A sensed, V paced underlying NSR
[2017-08-11] MEDS ORDERED: VANCOMYCIN IVPB SCH (10:00)
[2017-08-11] MEDS ORDERED: NS IVPB SCH (10:00)
--- NOTE | 2017-08-11 11:22 | PN ---
DATE: 08/11/2017 REASON FOR THE CONSULTATION AND FOLLOWUP: Cardiac evaluation, history of recent stent placed, history of pacemaker, admitted with intracranial bleed after a fall. SUBJECTIVE: The patient denies any chest pain, any shortness of breath or any palpitations. Feels a lot better. OBJECTIVE: GENERAL: Not in any apparent distress. VITAL SIGNS: Temperature afebrile, heart rate 68, blood pressure 128/47. HEENT: PERRLA. Extraocular muscles intact. NECK: Supple. No carotid bruit. No thyromegaly. CHEST: Clear to auscultation. HEART: S1 and S2 regular. ABDOMEN: Soft. EXTREMITIES: Clubbing and cyanosis negative. LABORATORY DATA: WBC 5.3, hemoglobin , hematocrit 28.8, platelet count 90. Chemistry shows sodium 141, potassium 4.5, chloride 92, carbon dioxide 31, anion gap of 23, BUN 63, creatinine 6.9. EKG done this morning shows V paced rhythm, underlying normal sinus. A sensed, V paced dual chamber pacemaker. A sensed, V paced rhythm, but underlying normal sinus, rate of 65. IMPRESSION: Status post fall, status post subdural hematoma. Repeat CAT scan unchanged from yesterday, history of recently stent placed, drug coated stent, 2 stents in the left anterior descending artery dated 06/12/2017. History of permanent pacemaker because of symptomatic bradycardia on 06/27/2017; obesity; diabetes; hypertension; hyperlipidemia; end-stage renal disease, on dialysis; full blown complications of diabetes including diabetic nephropathy, retinopathy, legally blind and neuropathy and that is why the patient used to fall because of no sensation in the feet. At this time, the patient came after having missing a dialysis on Monday because he fell asleep, came in on Monday. After being put on a weight scale, it is coming off and sleeper gave up and fell down. Later on, CAT scan showed subdural hematoma. Admitted to ICU. Repeat CAT scan as mentioned, no extension. THE PATIENT IS RESISTANT TO PLAVIX. The patient was on Brilinta and aspirin, which is on hold, as per Neurosurgical recommendation, Brilinta and Plavix for 2 weeks. We will check with them if it can be started earlier at least aspirin; then, we can start aspirin; otherwise, we will follow their recommendations. Though as I mentioned in my note yesterday, it is very high risk for holding aspirin and Brilinta both dual antiplatelet therapy. The patient had recently placed stent dated 06/12/2017 almost 8 weeks ago, but risks and benefits ratio has to be judged as by giving dual antiplatelet more increase risk of extension of subdural and complication of dural hematoma and holding is also at risk for subacute stent thrombosis. Discussed with the patient in length and discussed with the ICU team taking care of this. As per neurosurgical recommendation, we will follow with them. If that can be started early, we will start at least baby aspirin. We will discuss with them. Also, inform the nurse taking care to check with Neurosurgery for possibility of starting early aspirin in less than two weeks. In the interim, continue beta valerie, continue hydralazine, continue atorvastatin, continue dialysis. EKG in the morning and transfer to Tele. We will get EKG to catch up early signs of ischemia. Jarred Erickson MD
--- NOTE | 2017-08-11 11:38 | PN ---
DATE: 08/11/2017 SUBJECTIVE: Jason Berger was seen status post insertion of a right femoral central line, line is in good position, it is in the femoral and should be removed as soon as possible. He is getting dialysis. The IV accesses should be coordinated with the dialysis. We will follow peripherally. Please recall if necessary. Medardo Urrutia MD
[2017-08-11] MEDS: MULTIVITAMIN WITH IRON PO SCH (11:46)
[2017-08-11] MEDS: guaiFENesin DM 200 mg-20 mg/10 ml UD PO PRN (14:04)
--- NOTE | 2017-08-11 15:08 | CP.PCM.PN ---
Subjective - Date & Time of Evaluation Date of Evaluation: 08/11/17 Time of Evaluation: 08:00 - Subjective Subjective: Hematology/Oncology Progress Note for Dr. Patricia Patient was seen and examined at bedside. Patient feels better overall and has been OOB. Patient denied fever, chills, shortness of breath, changes in vision, dizziness, chest pains, abdominal pains, nausea, vomiting, diarrhea, or dysuria. Pt had mild arm pain overnight as per nursing staff, meds administered with good effect. Objective - Vital Signs/Intake and Output Vital Signs (last 24 hours): Temp Pulse Resp BP Pulse Ox 97.9 F 66 14 139/50 L 96 08/11/17 05:34 08/11/17 13:00 08/11/17 13:00 08/11/17 13:00 08/11/17 13:00 Intake and Output: 08/11/17 08/11/17 06:59 18:59 Intake Total 300 Balance 300 - Medications Medications: Current Medications Albuterol/Ipratropium (Duoneb 3 Mg/0.5 Mg (3 Ml) Ud) 3 ml IH [id number] PRN PRN Reason: Shortness of Breath Atorvastatin Calcium (Lipitor) 40 mg PO DIN [facility] Last Admin: 08/10/17 18:00 Dose: 40 mg Calcium Acetate (Phoslo) 1,334 mg PO ACTID [facility] Last Admin: 08/11/17 11:47 Dose: 1,334 mg Ergocalciferol (Drisdol 50,000 Intl Units Cap) 1 cap PO WED [facility] Fenofibrate (Tricor) 145 mg PO DAILY [facility] Last Admin: 08/11/17 09:27 Dose: 145 mg Guaifenesin/Dextromethorphan (Robitussin Dm) 10 ml PO Q4H PRN PRN Reason: Cough Last Admin: 08/11/17 14:04 Dose: 10 ml Hydralazine HCl (Apresoline) 20 mg PO BID [facility] Last Admin: 08/11/17 09:27 Dose: 20 mg Vancomycin HCl (Vancomycin 500mg In Ns) 500 mg in 100 mls @ 200 mls/hr IVPB MWF [facility] Last Admin: 08/11/17 09:28 Dose: 200 mls/hr Insulin Human NPH (Humulin N) 70 units SC ACD [facility] Last Admin: 08/10/17 17:58 Dose: 70 units Insulin Human Regular (Humulin R Med) 0 units SC [facility] PRN Reason: Protocol Last Admin: 08/11/17 08:00 Dose: Not Given Levothyroxine Sodium (Synthroid) 25 mcg PO 0600 [facility] Last Admin: 08/11/17 06:12 Dose: 25 mcg Loratadine (Claritin) 10 mg PO DAILY [facility] Last Admin: 08/11/17 09:27 Dose: 10 mg Montelukast Sodium (Singulair) 10 mg PO [facility] Last Admin: 08/09/17 21:06 Dose: 10 mg Non-Formulary Medication (Multivitamin With Iron [Multivitamins With Iron]) 1 each PO DAILY [facility] Last Admin: 08/11/17 11:46 Dose: Not Given Non-Formulary Medication (Nateglinide [Starlix]) 1 tab PO [facility] Last Admin: 08/10/17 22:25 Dose: Not Given Pantoprazole Sodium (Protonix Ec Tab) 40 mg PO 0600 [facility] Last Admin: 08/11/17 06:12 Dose: 40 mg Prednisone (Prednisone Tab) 5 mg PO DAILY [facility] Last Admin: 08/11/17 09:28 Dose: 5 mg Pregabalin (Lyrica) 50 mg PO HS [facility] Last Admin: 08/10/17 22:24 Dose: 50 mg Sodium Chloride ([place] Nasal [place]) 1 ml NS Q2H PRN PRN Reason: Nasal congestion Last Admin: 08/09/17 21:06 Dose: 1 dose Tamsulosin HCl (Flomax) 0.4 mg PO DAILY [facility] Last Admin: 08/11/17 09:28 Dose: 0.4 mg Tramadol HCl (Ultram) 50 mg PO TID PRN PRN Reason: Pain, moderate (4-7) Last Admin: 08/10/17 20:52 Dose: 50 mg - Labs Labs: 08/11/17 05:50 08/11/17 05:50 PT 17.1 SECONDS (9.4-12.5) H 08/09/17 10:00 INR 1.48 (0.93-1.08) H 08/09/17 10:00 APTT 29.7 Seconds (25.1-36.5) 08/09/17 10:00 - Constitutional Appears: No Acute Distress - Head Exam Head Exam: ATRAUMATIC, NORMAL INSPECTION, NORMOCEPHALIC - Eye Exam Eye Exam: EOMI, Normal appearance, PERRL Pupil Exam: NORMAL ACCOMODATION, PERRL - ENT Exam ENT Exam: Mucous Membranes Moist, Normal Exam - Respiratory Exam Respiratory Exam: Clear to Ausculation Bilateral, NORMAL BREATHING PATTERN - Cardiovascular Exam Cardiovascular Exam: REGULAR RHYTHM, +S1, +S2. absent: Murmur - GI/Abdominal Exam GI & Abdominal Exam: Soft, Normal Bowel Sounds. absent: Tenderness - Extremities Exam Extremities Exam: Full ROM, Normal Capillary Refill, Normal Inspection. absent : Joint Swelling, Pedal Edema - Neurological Exam Neurological Exam: Alert, Awake, CN II-XII Intact, Oriented x3 - Psychiatric Exam Psychiatric exam: Normal Affect, Normal Mood - Skin Skin Exam: Dry, Intact, Normal Color, Warm Assessment and Plan - Assessment and Plan (Free Text) Assessment: 52 year old male w/PMHx COPD, CAD with 4 stents, recently placed PPM, ESRD on HD MWF, IDDM2 and HTN that presented to [facility] s/p mechanical fall with trauma to the head resulting in a subdural hematoma evidenced by CT Head along the falx cerebri, measuring up to 1 cm in maximum thickness with no midline shift. Patient received platelet and FFP transfusion for Brilinta reversal. Repeat CT head shows stable hematoma. Neurosurgery Dr. Frost consulted, no surgical intervention at this time. Dr. Erickson Cardiology consulted, appreciate reccs. Continue to monitor clinical status, neurochecks. CBC, CMP, blood coags. Continue with arasnep as per Nephrology, Dr. Malcolm. Hgb continues to uptrend and stable. OOB,PT/OT
--- NOTE | 2017-08-11 19:04 | PN ---
DATE: 08/11/2017 SUBJECTIVE: The patient is seen sitting in a chair. He is awake. He is alert. He is comfortable. He denies any headaches. He denies any weakness in any part of the body. PHYSICAL EXAMINATION VITAL SIGNS: Blood pressure 139/50, heart rate 80, respiratory rate 18, temperature 98. HEENT: Normocephalic, atraumatic, positive pallor. NECK: Supple, no JVD. LUNGS: Bilateral equal air entry, bilateral equal expansion, no rales. CARDIAC: S1, S2. Regular rate and rhythm, no murmur, no rub. ABDOMEN: Obese, distended, soft, nontender, bowel sounds present. EXTREMITIES: Chronic stasis changes. INTAKE AND OUTPUT: Not charted. LABORATORY DATA: WBC 5, hemoglobin 9, hematocrit 28.8, platelets 90. Sodium 141, potassium 4.5, chloride 92, CO2 of 31, BUN 63, creatinine 9.7, glucose 65, calcium 9.1, phosphorus 8.3, magnesium 2.5, AST 113, ALT 57, albumin 4. CURRENT MEDICATIONS: Apresoline 20 b.i.d., Claritin, vitamin D once a week, DuoNeb, Flomax, insulin, Lipitor, Lyrica 50, multivitamin, Starlix, PhosLo, prednisone 5 mg daily, Protonix, guaifenesin, Singulair, Synthroid, fenofibrate, tramadol, vancomycin. ASSESSMENT: 1. Recurrent falls at home, status post fall sustaining these subdural hematoma. 2. The patient was on anticoagulation with Brilinta and aspirin because of his recent drug-eluting stent. 3. Coronary artery disease. 4. Recent pacemaker placement. 5. Non-insulin dependant diabetes mellitus. 6. End-stage renal disease. 7. Hyperphosphatemia. PLAN: 1. Currently, the patient is off Brilinta and aspirin, case discussed with Dr. Erickson. High risk for thrombosis of drug-eluting stent. 2. Neurologically stable right now. 3. Dialysis today. 4. Continue monitoring fingersticks and intensified glycemic control. 5. Continue phosphate binder. 6. Physical therapy. Eva Malcolm MD [facility] # [id number]
[2017-08-11] MEDS: Insulin Human NPH 1 UNITS/0.01 ML SC SCH (19:25)
[2017-08-11] MEDS: Budesonide 0.5 mg/2 ml Inhal Susp UD IH SCH (20:21)
[2017-08-11] MEDS: Arformoterol 15 mcg/2 ml Inh Sol IH SCH (20:22)
--- NOTE | 2017-08-11 20:35 | PN ---
DATE: 08/11/2017 PULMONARY PROGRESS NOTE REFERRING PHYSICIAN: Diana Kessler MD. SUBJECTIVE: He is seen in the dialysis chair. Night was unremarkable. Tolerated CPAP well. Still has some cough. No nausea. No vomiting. No abdominal pain. No leg swelling. OBJECTIVE: GENERAL: In no acute distress. VITAL SIGNS: Temp is 98, heart rate is 60, respiratory rate is 20, blood pressure 108/62. HEENT: Moist mucous membrane. Crowded airway. NECK: Supple. No JVD. LUNGS: Have a few scattered rhonchi. HEART: S1 and S2. ABDOMEN: Soft and nontender. No organomegaly. EXTREMITY: Has trace edema. NEUROLOGICAL: Awake and alert. Follows simple command. LABORATORY DATA: Shows hemoglobin 9.1, hematocrit 28.8, WBC 5.3, platelet count is 90. Sodium 141, potassium 4.5, chloride 92, bicarbonate 31, BUN 63, creatinine 9.7, glucose is 65, calcium 9.1, phosphorus 8.3, magnesium 2.5, AST 113, ALT 57, alk phos is 64, albumin is 4. MEDICATIONS: He is on hydralazine 20 mg twice a day, Claritin 10 mg daily, vitamin D 50,000 units weekly, DuoNeb every 6 hours, Flomax 0.4 mg daily, insulin coverage, Lipitor 40 mg daily, Lyrica 50 mg at bedtime, also on Starlix 1 tab at bedtime, nasal saline every 2 hours p.r.n., PhosLo is before meals three times a day, prednisone 5 mg daily, Protonix 40 mg daily, Robitussin every 4 hours p.r.n., Singulair 10 mg daily, Synthroid 25 mcg daily, Tricor 145 mg daily, Ultram 50 mg three times a day p.r.n.; vancomycin 500 mg, Monday, Monday, Monday. IMPRESSION AND PLAN: Status post fall with subdural hematoma while on Brilinta, severe peripheral vascular disease with left foot ulcer, chronic obstructive lung disease, obstructive sleep apnea syndrome, cardiac arrhythmia requiring pacemaker, pulmonary hypertension, diabetes, renal failure, dialysis dependent, obesity. Has some persistent cough. We will add Brovana and Pulmicort inhaled. Keep head elevated at 45 degrees. Encourage continuous positive airway pressure Use. Fall precaution. Thank you and we will follow with you. Jarred Escalera MD [facility] # [id number]
[2017-08-11] MEDS: NATEGLINIDE PO SCH (22:58)
--- NOTE | 2017-08-11 23:57 | PN ---
DATE: 08/11/2017 SUBJECTIVE: Patient is a 52-year-old male. Patient was seen and examined on the bedside in the unit, was getting midline. No nausea, vomiting, or diarrhea. No hematuria or hematochezia. No swelling of the legs. No chest pain or palpitation. No fever. Denies any weakness in any part of the body. PHYSICAL EXAMINATION: VITAL SIGNS: Temperature 98.6, blood pressure 139/50, heart rate is 60, respiratory rate is 18. HEENT: Head: Normocephalic, atraumatic. Eyes: PERRLA. Extraocular movements intact. Conjunctivae clear. Nose patent. Mucous membranes moist. NECK: Supple. No carotid bruit. No JVD or thyromegaly. CHEST: Bilaterally symmetrical. HEART: S1 and S2 positive. LUNGS: Clear to auscultation. ABDOMEN: Soft. Bowel sounds present. No organomegaly. EXTREMITIES: No edema. No cyanosis. NEUROLOGIC: The patient is awake and alert. Moving all 4 extremities. No focal deficit. LABORATORY DATA: White blood cell is 5, hemoglobin 9, hematocrit 28.8, platelets 90. Sodium 141, potassium 4.5, BUN 63, creatinine 9.7, AST 113, ALT 57. MEDICATIONS: Apresoline, Claritin, vitamin D, DuoNeb, Lipitor, Lyrica, multivitamin, Starlix, PhosLo, prednisone, Protonix, Singulair, Synthroid,fenofibrate, tramadol, vancomycin. ASSESSMENT AND PLAN: Mr. Jason Berger is a 52-year-old male with recent falls at home. Due to fall, he sustained subdural hematoma. The patient was anticoagulated with Brilinta and aspirin because of the recent drug-eluted stent. Now, we are holding blood thinners. According to Neurosurgeon, we have to hold for 6 weeks and do re-evaluation. Coronary artery disease, recent pacemaker placement, utc-[id number] diabetes mellitus, end-stage renal disease on hemodialysis, hyperphosphatemia, diabetic neuropathy, diabetic nephropathy, diabetic retinopathy. Neurologically stable right now, getting dialysis. Continue monitoring fingersticks and intensified glycemic control. Continue phosphate binder. Physical therapy, gastrointestinal and deep venous thrombosis prophylaxis. Repeat labs. We will follow up. Diana Kessler MD
[2017-08-12] MEDS: guaiFENesin DM 200 mg-20 mg/10 ml UD PO PRN ×2 (02:29→20:19)
[2017-08-12] MEDS: Pantoprazole 40 mg EC Tab PO SCH (05:29)
[2017-08-12] MEDS: Levothyroxine 25 MCG TAB PO SCH (05:29)
[2017-08-12] MEDS: Budesonide 0.5 mg/2 ml Inhal Susp UD IH SCH ×2 (07:27→21:10)
[2017-08-12] MEDS: Arformoterol 15 mcg/2 ml Inh Sol IH SCH ×2 (07:27→21:10)
[2017-08-12] MEDS: Insulin Reg-MEDIUM-Coverage SC SCH ×4 (08:14→22:01)
--- NOTE | 2017-08-12 09:17 | CP.PCM.PN ---
Subjective - Date & Time of Evaluation Date of Evaluation: 08/12/17 Time of Evaluation: 06:10 - Subjective Subjective: Lying in bed, sleeping but easily awaken, denies shortness of breath,denies chest pain Reason for consultation and follow up:Cardiac evaluation post fall, coronary artery disease post stents x 2, PPM. COPD,ESRD on hemodialysis Seen and examined by me and Dr. Goodwin Objective - Vital Signs/Intake and Output Vital Signs (last 24 hours): Temp Pulse Resp BP Pulse Ox 98.1 F 60 20 101/30 L 96 08/12/17 06:00 08/12/17 06:00 08/12/17 06:00 08/12/17 06:00 08/12/17 06:00 Intake and Output: 08/12/17 08/12/17 06:59 18:59 Intake Total 240 Balance 240 - Medications Medications: Current Medications Albuterol/Ipratropium (Duoneb 3 Mg/0.5 Mg (3 Ml) Ud) 3 ml IH [id number] PRN PRN Reason: Shortness of Breath Arformoterol Tartrate (Brovana) [id number] [facility] Last Admin: 08/12/17 07:27 Dose: 15 mcg Atorvastatin Calcium (Lipitor) [address] [facility] Last Admin: 08/11/17 19:26 Dose: Not Given Budesonide (Pulmicort Respules) 0.[id number] [facility] Last Admin: 08/12/17 07:27 Dose: 0.5 mg Calcium Acetate (Phoslo) 1,[address] [facility] Last Admin: 08/12/17 08:12 Dose: 1,334 mg Ergocalciferol (Drisdol 50,000 Intl Units Cap) [address] [facility] Fenofibrate (Tricor) [address] [facility] Last Admin: 08/11/17 09:27 Dose: 145 mg Guaifenesin/Dextromethorphan (Robitussin Dm) 10 ml PO Q4H PRN PRN Reason: Cough Last Admin: 08/12/17 02:29 Dose: 10 ml Hydralazine HCl (Apresoline) [address] [facility] Last Admin: 08/11/17 19:25 Dose: Not Given Vancomycin HCl (Vancomycin 500mg In Ns) 500 mg in 100 mls @ 200 mls/hr IVPB F [facility] Last Admin: 08/11/17 09:28 Dose: 200 mls/hr Insulin Human NPH (Humulin N) [address] [facility] Last Admin: 08/11/17 19:25 Dose: Not Given Insulin Human Regular (Humulin R Med) [address] [facility] PRN Reason: Protocol Last Admin: 08/12/17 08:14 Dose: 8 units Levothyroxine Sodium (Synthroid) [address] [facility] Last Admin: 08/12/17 05:29 Dose: 25 mcg Loratadine (Claritin) [address] [facility] Last Admin: 08/11/17 09:27 Dose: 10 mg Montelukast Sodium (Singulair) [address] [facility] Last Admin: 08/11/17 23:00 Dose: 10 mg Non-Formulary Medication (Multivitamin With Iron [Multivitamins With Iron]) [address] [facility] Last Admin: 08/11/17 11:46 Dose: Not Given Non-Formulary Medication (Nateglinide [Starlix]) [address] [facility] Last Admin: 08/11/17 22:58 Dose: Not Given Pantoprazole Sodium (Protonix Ec Tab) [address] [facility] Last Admin: 08/12/17 05:29 Dose: 40 mg Prednisone (Prednisone Tab) [address] [facility] Last Admin: 08/11/17 09:28 Dose: 5 mg Pregabalin (Lyrica) [address] [facility] Last Admin: 08/11/17 22:53 Dose: 50 mg Sodium Chloride ([place] Nasal [place]) 1 ml NS Q2H PRN PRN Reason: Nasal congestion Last Admin: 08/09/17 21:06 Dose: 1 dose Tamsulosin HCl (Flomax) 0.[address] [facility] Last Admin: 08/11/17 09:28 Dose: 0.4 mg Tramadol HCl (Ultram) 50 mg PO TID PRN PRN Reason: Pain, moderate (4-7) Last Admin: 08/12/17 09:05 Dose: 50 mg - Labs Labs: 08/11/17 05:50 08/11/17 05:50 PT 17.1 SECONDS (9.4-12.5) H 08/09/17 10:00 INR 1.48 (0.93-1.08) H 08/09/17 10:00 APTT 29.7 Seconds (25.1-36.5) 08/09/17 10:00 - Constitutional Appears: No Acute Distress - Head Exam Head Exam: NORMOCEPHALIC - Eye Exam Eye Exam: Normal appearance - ENT Exam ENT Exam: Mucous Membranes Moist - Respiratory Exam Respiratory Exam: Decreased Breath Sounds, NORMAL BREATHING PATTERN - Cardiovascular Exam Additional comments: PPM Telemetry NSR 60's - GI/Abdominal Exam GI & Abdominal Exam: Soft, Normal Bowel Sounds - Extremities Exam Extremities Exam: Normal Capillary Refill Additional comments: AV shunt - Neurological Exam Neurological Exam: Alert, Awake, Oriented x3 - Psychiatric Exam Psychiatric exam: Normal Affect, Normal Mood - Skin Skin Exam: Intact, Normal Color, Warm Assessment and Plan - Assessment and Plan (Free Text) Assessment: A 52 year old male who came in to the ER due to fall at dialysis center.He missed his dialysis Monday and came in Monday. While weighing the patient standing his legs gave way and fell. He has been falling frequently over the last 1-2 weeks, and has fallen x 2 episodes 2 days ago. History of coronary artery disease post stents x 2 06/12/17,on Brilinta and Aspirin. (Patient resistant to Plavix) PPM for symptomatic bradycardia 06/27/17, COPD,ESRD on hemodialysis (MWF),hypertension, hyperlipidemia, obesity, diabetes mellitus, hyperlipidemia, diabetic neuropathy,diabetic retinopathy Patient known to service. He was just discharged from TCU 07/11/17. CT of head showed subdural hematoma. Admitted to ICU,stabilized then transferred to telemetry. Plan: Continue to hold Brilinta and Aspirin as per Neuro for at least 6 weeks Concern cardiac stent thrombosis/occluding Will monitor closely for signs and symptoms Transferred to telemetry from ICU Continue current medications Continue current treatment Will follow up Plan and treatment discussed with Dr. Goodwin
[2017-08-12] MEDS: MULTIVITAMIN WITH IRON PO SCH (11:16)
--- NOTE | 2017-08-12 12:30 | CARD ---
APPROVED REPORT EKG Measurement Heart [id number] <Conclusion> AV sequential or dual chamber electronic pacemaker
--- NOTE | 2017-08-12 14:29 | PN ---
DATE: 08/12/2017 SUBJECTIVE: The patient is currently seen lying comfortable supine in bed on telemetry. He has no headaches. He has no issues at all related to his fall and left subdural hematoma. The patient states he would like to go home. He had an uneventful dialysis yesterday. He will remain off Brilinta for approximately 2 weeks. MEDICATIONS Medication list reviewed. The patient is on Brovana, Apresoline, Claritin, vitamin D, DuoNeb, Flomax, insulin, Lipitor, Lyrica, multivitamins, Starlix, [place] nasal spray, PhosLo, prednisone, Protonix, Pulmicort, Robitussin, Singulair, Synthroid, TriCor, Ultram, and vancomycin post dialysis. OBJECTIVE: INTAKE/OUTPUT: Intake 820, output 3000 with dialysis. VITAL SIGNS: Blood pressure 101/30, temperature 98, respiratory rate 20 with a pulse of 59, pulse oximetry is 96%. HEENT: Shows him to be normocephalic, atraumatic. Conjunctivae are pale. Sclerae are anicteric. NECK: Supple. No neck vein distention. CHEST: Clear to auscultation and percussion with no rales, rhonchi, or wheezing. CARDIOVASCULAR: Shows a regular rate and rhythm with /AI/MR/TR. ABDOMEN: Soft. Bowel sounds normal. Mild obesity. No distention. Bowel sounds are present with no rebound or guarding. EXTREMITIES: No lower extremity edema. Diminished lower extremity pulses. Positive left upper extremity AV fistula. LABORATORY DATA AND IMAGING: Followup head CT scan showed no change in the small left subdural hemorrhage, 9 mm. No shift and no edema. CBC from yesterday, white blood cell count 5.3, hemoglobin 9.1 with a platelet count of 90,000. Chemistries, sodium 141, potassium 4.5, chloride 92 with CO2 of 31, BUN 63 with a creatinine of 9.7. Glucose has been ranging anywhere from 63 to 376. Calcium 9.1, phosphorus remains elevated at 8.3 with a magnesium of 2.5. Mild elevation of his liver enzymes. Albumin is 4. ASSESSMENT: 1. Status post multiple falls at home resulting in a left 9 mm subdural hematoma. This appears to be stable. The patient has been seen by Neurosurgery. 2. The patient had been on anticoagulation with Brilinta because of his drug-eluting stent for his coronary artery disease. He is status post percutaneous transluminal coronary angioplasty and stent. This according to the patient will be placed on hold for 2 weeks. 3. Status post permanent pacemaker for life-threatening bradycardia. 4. History of diabetes mellitus, currently stable, with variable glucose control, on insulin regimen. 5. History of end-stage renal disease. The patient will continue Monday, Monday, Monday dialysis. 6. History of secondary hyperparathyroidism. Phosphorus level remains elevated. The patient will continue renal diet and binder therapy. 7. History of pulmonary hypertension, currently stable. PLAN: 1. The patient appears to be stable on telemetry. From a renal standpoint once cleared by Medicine and by the Neuro/Neurosurgery, the patient likely can be discharged home with further outpatient followup and followup head CT scans. 2. The patient knows to hold Brilinta for approximately 2 weeks in light of his hemorrhage. As noted in previous notes, there is a risk of thrombosis from the drug-eluting stent. 3. Next hemodialysis will be on Monday. This likely could be done as an outpatient. 4. Continue to monitor sugars. 5. Continue renal diet and binder therapy. Toy Martinez MD
--- NOTE | 2017-08-12 16:29 | PN ---
DATE: 08/12/2017 This is [facility] [place] [facility] visit on the telemetry floor. For Dr. Patricia. SUBJECTIVE: The patient is a 52-year-old male, now seen on telemetry after being transferred out of the Intensive Care Unit with the patient seen sitting up in a chair with the patient feeling somnolent, but easily arousable. He suffers from a subdural hematoma with the patient is also on dialysis with his thrombocytopenia being monitored. Otherwise, he is in no acute distress. Reports his appetite was good. OBJECTIVE PHYSICAL EXAMINATION: VITAL SIGNS: Temperature 98.5, pulse 63, respirations 18, blood pressure 139/63, pulse ox 96%. HEENT: Unremarkable, but the patient has difficulty keeping his eyes open as he is somnolent. NECK: [place], supple. HEART: Regular rate. LUNGS: Clear. ABDOMEN: Obese, soft, nontender. EXTREMITIES: A +1 edema. NEUROLOGIC: Lethargic, but arousable. Oriented x3 with minimal weakness to javascript software engineer bilaterally. SKIN: With ecchymotic changes, slowly improving, otherwise clear. LABORATORY DATA: The patient had an EKG done earlier today. It was read as AV sequential dual chamber electronic pacer. The patient's labs were done yesterday and will be repeated tomorrow. His fingerstick blood sugar was 365 on most recent testing. ASSESSMENT: The assessment for this patient is that of status post fall; subdural hematoma; chronic kidney disease, on dialysis; anemia of chronic kidney disease; thrombocytopenia; diabetes mellitus; electrolyte imbalance; abnormal liver function tests; chronic obstructive pulmonary disease; atherosclerotic cardiovascular disease, status post 4 stents with pacer. PLAN: The plan for this patient is to continue the present medical regimen with the patient to consider long-term rehab for his significant multiple medical problems as listed above. We will monitor clinically with labs. Jayson Earl MD
[2017-08-12] MEDS: Insulin Human NPH 1 UNITS/0.01 ML SC SCH (17:04)
--- NOTE | 2017-08-12 21:12 | PN ---
DATE: 08/12/2017 SUBJECTIVE: The patient is a 52-year-old male. The patient is seen and examined on the bedside. Sleepy, arousable. Getting monitoring in the telemetry. No headache. No hematuria. No hematochezia. Mental status is back to normal. No event happened last night. Getting dialysis regularly. Getting physical therapy. As per electrical maintenance technician, the patient will be off Brilinta approximately 2 weeks. PHYSICAL EXAMINATION: VITAL SIGNS: Blood pressure 101/30, temperature 98, respiratory rate 20, pulse 59, pulse oximetry 96. HEENT: Head normocephalic, atraumatic. Eyes PERRLA. Extraocular muscles intact. Conjunctivae clear. Nose patent. Mucous membrane moist. NECK: Supple. No carotid bruit. No JVD or thyromegaly. CHEST: Bilaterally symmetrical. HEART: S1 and S2 positive. LUNGS: Clear to auscultation. ABDOMEN: Soft. Bowel sounds positive. No organomegaly. EXTREMITIES: No edema. No cyanosis. NEUROLOGICAL: The patient is awake and alert. Moving all 4 extremities. No focal deficits. LABORATORY DATA: White blood cells 5.3, hemoglobin 9.1, platelet 90,000. Sodium 141, potassium 4.5, BUN 63, creatinine 6.7, glucose ranges from 63-375. MEDICATIONS: Brovana, Apresoline, Claritin, vitamin D, DuoNeb, Flomax, insulin, Lipitor, Lyrica, nasal spray, PhosLo, prednisone, Protonix, Pulmicort, Robitussin, Singulair, Synthroid, TriCor, Ultram, vancomycin. ASSESSMENT AND PLAN: Mr. Jason Berger, 52-year-old male, status post multiple falls, 2 times found by the mother on the floor. Now, has left 9 mm subdural hematoma. This appears to be stable. The patient is seen by neurosurgeon and surgeon. Advised no surgery. Coronary artery disease, having drug-eluting stents. Status post percutaneous transluminal coronary angioplasty and stent. Has permanent pacemaker for life threatening bradycardia. Diabetes mellitus, insulin dependent, type 2, not very well controlled. Glucose ranges from 50s-400 some time. The patient is under the care of the chrome plater helper. Renal insufficiency, on hemodialysis 3 times a week. Diabetic neuropathy, diabetic nephropathy, diabetic retinopathy. Secondary hyperthyroidism. Phosphate level is high. Pulmonary hypertension. The patient is stable on the telemetry. Holding Brilinta for 2 weeks. We will get hemodialysis on Monday. Gastrointestinal and deep venous thrombosis prophylaxis. Repeat labs. We will follow up. Diana Kessler MD
--- NOTE | 2017-08-12 21:21 | PN ---
DATE: 08/12/2017 PULMONARY PROGRESS NOTE REFERRING PHYSICIAN: Diana Kessler MD. SUBJECTIVE: Sitting on side of the bed, having lunch. Night was unremarkable. CPAP was not placed in. Cough is a little better. Getting nebulizer treatment. No nausea. No vomiting. No diarrhea. No leg swelling. OBJECTIVE: GENERAL: No acute distress. VITAL SIGNS: Temperature is 98, heart rate is 60, respiratory rate is 18, blood pressure 144/68, pulse ox 92% on room air. HEENT: Moist mucous membrane. Crowded airway. NECK: Short think neck. LUNGS: Have a fair airflow with rhonchi. HEART: S1 and S2. ABDOMEN: Soft, nontender. No organomegaly. EXTREMITIES: Not much edema, but is tender to touch. NEUROLOGICAL: Awake and alert. Follows simple command. LABORATORY DATA: Reviewed. Blood sugar is still high, which is 365. MEDICATIONS: He is on hydralazine 20 mg twice a day, Brovana inhaled twice a day, Claritin 10 mg daily, vitamin D 50,000 units weekly, DuoNeb every 6 hours p.r.n., Flomax 0.4 mg daily, insulin coverage, Lipitor 40 mg daily, Lyrica 50 mg at bedtime, multivitamins daily, Starlix 1 tab at bedtime, nasal saline every 2 hours p.r.n., PhosLo, also on prednisone 5 mg daily, Protonix 40 mg daily, Pulmicort inhaled twice a day, Robitussin 10 mL every 4 hours p.r.n., Singulair 10 mg daily, Synthroid 25 mcg daily, Tricor 145 mg daily, Ultram p.r.n. basis, vancomycin 500 mg, Monday, Monday, Monday. IMPRESSION AND PLAN: Status post fall with subdural hematoma, severe peripheral vascular disease, left foot ulcer, chronic obstructive lung disease, obstructive sleep apnea syndrome, cardiac arrhythmia requiring pacemaker, pulmonary hypertension, diabetes, renal failure, dialysis dependent. Continue inhaled bronchodilator. Keep head at 45 degrees. Sleep apnea precaution. Use continuous positive airway pressure while sleeping. We will add Prandin 2 mg with the meals. Thank you and we will follow with you. Jarred Escalera MD [facility] # [id number]
[2017-08-12] MEDS: NATEGLINIDE PO SCH (22:01)
[2017-08-13] MEDS: Pantoprazole 40 mg EC Tab PO SCH (05:46)
[2017-08-13] MEDS: Levothyroxine 25 MCG TAB PO SCH (05:46)
[2017-08-13] MEDS: Arformoterol 15 mcg/2 ml Inh Sol IH SCH ×2 (07:41→21:01)
[2017-08-13] MEDS: Budesonide 0.5 mg/2 ml Inhal Susp UD IH SCH ×2 (07:42→21:01)
[2017-08-13] MEDS: Insulin Reg-MEDIUM-Coverage SC SCH ×4 (07:54→22:07)
[2017-08-13 08:20] LABS: BASO # 0.01 K/mm3 (0.0-2.0); BASO % 0.2 % (0.0-3.0); EOS # 0.1 (0.0-0.7); EOS % 1.5 % (1.5-5.0); GRAN # 2.28 (1.4-6.5); GRAN % 56.1 % (50.0-68.0); HEMOGLOBIN 8.7 g/dL (14.0-18.0); LYMPH # 1.3 (1.2-3.4); LYMPH % 32.3 % (22.0-35.0); MEAN CELL VOLUME 92.5 fl (80.0-105.0); MEAN CORPUSCULAR HEMOGLOBIN 29.6 pg (25.0-35.0); MEAN PLATELET VOLUME 12.7 fl (7.0-11.0); MONO # 0.4 (0.1-0.6); MONO % 9.9 % (1.0-6.0); RBC 2.94 10^6/uL (3.5-6.1); RED CELL DISTRIBUTION WIDTH 18.5 % (11.5-14.5); WHITE BLOOD COUNT 4.1 10^3/ul (4.5-11.0)
--- NOTE | 2017-08-13 08:31 | CP.PCM.PN ---
Subjective - Date & Time of Evaluation Date of Evaluation: 08/13/17 Time of Evaluation: 06:35 - Subjective Subjective: Sitting in bed, awake, complaints of sore on left side of arm from falling, denies chest pain or shortness of breath Reason for consultation and follow up: Cardiac evaluation post fall,coronary artery disease post stents on Brilinta and Aspirin. (Patient resistant to Plavix ) PPM for symptomatic bradycardia, COPD,ESRD on hemodialysis (MWF),hypertension , hyperlipidemia, obesity, diabetes mellitus, hyperlipidemia, diabetic neuropathy,diabetic retinopathy Seen and examined by me and Dr. Goodwin Objective - Vital Signs/Intake and Output Vital Signs (last 24 hours): Temp Pulse Resp BP Pulse Ox 97.5 F L 61 20 108/31 L 100 08/13/17 05:59 08/13/17 05:59 08/13/17 05:59 08/13/17 05:59 08/13/17 05:59 Intake and Output: 08/13/17 08/13/17 06:59 18:59 Intake Total 420 Balance 420 - Medications Medications: Current Medications Albuterol/Ipratropium (Duoneb 3 Mg/0.5 Mg (3 Ml) Ud) 3 ml IH [id number] PRN PRN Reason: Shortness of Breath Arformoterol Tartrate (Brovana) 15 mcg IH [id number] [facility] Last Admin: 08/13/17 07:41 Dose: 15 mcg Atorvastatin Calcium (Lipitor) 40 mg PO DIN [facility] Last Admin: 08/12/17 17:05 Dose: 40 mg Budesonide (Pulmicort Respules) 0.5 mg IH [id number] [facility] Last Admin: 08/13/17 07:42 Dose: 0.5 mg Calcium Acetate (Phoslo) 1,334 mg PO ACTID [facility] Last Admin: 08/13/17 07:54 Dose: 1,334 mg Ergocalciferol (Drisdol 50,000 Intl Units Cap) 1 cap PO WED [facility] Fenofibrate (Tricor) 145 mg PO DAILY [facility] Last Admin: 08/12/17 11:17 Dose: 145 mg Guaifenesin/Dextromethorphan (Robitussin Dm) 10 ml PO Q4H PRN PRN Reason: Cough Last Admin: 08/12/17 20:19 Dose: 10 ml Hydralazine HCl (Apresoline) 20 mg PO BID [facility] Last Admin: 08/12/17 20:18 Dose: 20 mg Vancomycin HCl (Vancomycin 500mg In Ns) 500 mg in 100 mls @ 200 mls/hr IVPB MWF [facility] Last Admin: 08/11/17 09:28 Dose: 200 mls/hr Insulin Human NPH (Humulin N) 70 units SC ACD [facility] Last Admin: 08/12/17 17:04 Dose: 70 units Insulin Human Regular (Humulin R Med) 0 units SC ACHS [facility] PRN Reason: Protocol Last Admin: 08/13/17 07:54 Dose: 1 units Levothyroxine Sodium (Synthroid) 25 mcg PO 0600 [facility] Last Admin: 08/13/17 05:46 Dose: 25 mcg Loratadine (Claritin) 10 mg PO DAILY [facility] Last Admin: 08/12/17 11:15 Dose: 10 mg Montelukast Sodium (Singulair) 10 mg PO HS [facility] Last Admin: 08/12/17 22:01 Dose: 10 mg Non-Formulary Medication (Multivitamin With Iron [Multivitamins With Iron]) 1 each PO DAILY [facility] Last Admin: 08/12/17 11:16 Dose: Not Given Non-Formulary Medication (Nateglinide [Starlix]) [address] [facility] Last Admin: 08/12/17 22:01 Dose: Not Given Pantoprazole Sodium (Protonix Ec Tab) 40 mg PO 0600 [facility] Last Admin: 08/13/17 05:46 Dose: 40 mg Prednisone (Prednisone Tab) 5 mg PO DAILY [facility] Last Admin: 08/12/17 11:17 Dose: 5 mg Pregabalin (Lyrica) 50 mg PO HS [facility] Last Admin: 08/12/17 22:01 Dose: 50 mg Repaglinide (Prandin) 2 mg PO AC [facility] Last Admin: 08/13/17 07:54 Dose: 2 mg Sodium Chloride ([place] Nasal [place]) 1 ml NS Q2H PRN PRN Reason: Nasal congestion Last Admin: 08/09/17 21:06 Dose: 1 dose Tamsulosin HCl (Flomax) 0.4 mg PO DAILY [facility] Last Admin: 08/12/17 11:15 Dose: 0.4 mg Tramadol HCl (Ultram) 50 mg PO TID PRN PRN Reason: Pain, moderate (4-7) Last Admin: 08/13/17 03:36 Dose: 50 mg - Labs Labs: 08/13/17 08:10 08/11/17 05:50 PT 17.1 SECONDS (9.4-12.5) H 08/09/17 10:00 INR 1.48 (0.93-1.08) H 08/09/17 10:00 APTT 29.7 Seconds (25.1-36.5) 08/09/17 10:00 - Constitutional Appears: No Acute Distress - Eye Exam Eye Exam: Normal appearance - ENT Exam ENT Exam: Mucous Membranes Moist - Respiratory Exam Respiratory Exam: Clear to Ausculation Bilateral, NORMAL BREATHING PATTERN - Cardiovascular Exam Cardiovascular Exam: +S1, +S2 Additional comments: PPM Telemetry pacing - GI/Abdominal Exam GI & Abdominal Exam: Soft, Normal Bowel Sounds - Extremities Exam Extremities Exam: Normal Capillary Refill Additional comments: AV shunt - Neurological Exam Neurological Exam: Alert, Awake, Oriented x3 - Psychiatric Exam Psychiatric exam: Normal Affect, Normal Mood - Skin Skin Exam: Intact, Normal Color, Warm Assessment and Plan - Assessment and Plan (Free Text) Assessment: A 52 year old male who came in to the ER due to fall at dialysis center.He missed his dialysis Monday and came in Monday. While weighing the patient standing his legs gave way and fell. He has been falling frequently over the last 1-2 weeks, and has fallen x 2 episodes 2 days ago. History of coronary artery disease post stents x 2 06/12/17,on Brilinta and Aspirin. (Patient resistant to Plavix) PPM for symptomatic bradycardia 06/27/17, COPD,ESRD on hemodialysis (MWF),hypertension, hyperlipidemia, obesity, diabetes mellitus, hyperlipidemia, diabetic neuropathy,diabetic retinopathy Patient known to service. He was just discharged from TCU 07/11/17. CT of head showed subdural hematoma. Admitted to ICU,stabilized then transferred to telemetry. Plan: Feels better Brilinta and Aspirin on hold due to subdural hematoma (as per Neuro for at least 6 weeks) Concern cardiac stent thrombosis/occluding Will monitor closely for signs and symptoms otherwise stable blood pressure ,heart rate pacing (telemetry) On hemodialysis Monday, Monday,and Monday Continue current medications Continue current treatment Will follow up Plan and treatment discussed with Dr. Goodwin
[2017-08-13 08:35] LABS: ALBUMIN 4.1 g/dL (3.0-4.8); CALCIUM 8.8 mg/dL (8.4-10.5)
[2017-08-13] MEDS: MULTIVITAMIN WITH IRON PO SCH (10:17)
--- NOTE | 2017-08-13 12:25 | PN ---
DATE: 08/13/2017 SUBJECTIVE: The patient is currently seen on telemetry. He is apparently comfortable. He has no complaints related to subdural hematoma. He was turned down from the TCU and there is consideration that he might go to subacute rehab for several weeks. The patient will remain off of Brilinta for at least 2 weeks in light of his subdural hemorrhage. MEDICATIONS: Medication list reviewed. The patient is currently on Apresoline, Brovana, Claritin, vitamin D, DuoNeb, Flomax, insulin, Lipitor, Lyrica, Starlix, MultiVites, PhosLo, Prandin, prednisone, Protonix, Pulmicort, Robitussin, Singulair, Synthroid, Tricor, Ultram and IV vancomycin with dialysis. OBJECTIVE: INTAKE/OUTPUT: Intake 420, output not charted. VITAL SIGNS: Blood pressure 108/42, temperature 97.5, pulse of 62 with a respiratory rate of 20. HEENT: Normocephalic, atraumatic. Conjunctivae remain pale. Sclerae are nonicteric. NECK: Supple. No neck vein distention. CHEST: Clear to auscultation and percussion with no rales, rhonchi or wheezing. CARDIOVASCULAR: Shows a regular rate and rhythm with /AI/MR/TR. Positive permanent pacemaker. ABDOMEN: Soft. Bowel sounds normal. Mild obesity. No distention. No rebound or guarding. EXTREMITIES: No lower extremity edema. Diminished lower extremity pulses. Positive left upper extremity AV fistula. LABORATORY DATA AND IMAGING: CBC: White blood cell count 4.1, hemoglobin 8.7 with a platelet count of 74,000. Chemistries from today showed a BUN of 102 with a creatinine of 13.1, potassium is 5.3, glucose is 154. Mild elevation of his AST. Albumin level is 4.1. ASSESSMENT: 1. Status post multiple falls at home resulting a 9 mm subdural hematoma. This appears to be stable. The patient has been seen by Neurosurgery. No aggressive intervention planned. 2. The patient had been n chronic anticoagulation, Brilinta because of his drug-eluting stent for his coronary artery disease. This will be on hold for at least 2 weeks as per the notes that I read on the EMR. The patient is at risk for thrombosis given his drug-eluting stent. He will need to be monitored closely. 3. Status post permanent pacemaker for life threatening bradycardia. 4. History of diabetes mellitus, currently stable. Glucose control is variable on insulin regimen. 5. History of end-stage renal disease and mild hyperkalemia. The patient is scheduled for his routine dialysis tomorrow. 6. History of anemia. The patient will receive maximum dose of Aranesp with dialysis. I will continue Monday, Monday, Monday dialysis. 7. History of secondary hyperparathyroidism. Last phosphorus level was 8.3. The patient will continue binder therapy. The patient remains on PhosLo 2 tablets with each meal. 8. History of pulmonary hypertension, stable. PLAN: 1. The patient will likely be transferred to subacute rehab for rehabilitation post the subdural hemorrhage. The patient was turned down by the TCU. 2. Continue to hold Brilinta under the guidance of Neurology, Neurosurgery and Cardiology. All are on board. 3. Continue low potassium diet. 4. Continue to monitor sugars closely and adjust insulin. 5. Continue renal diet and binder therapy. Toy Martinez MD
[2017-08-13] MEDS: HYDROmorphone 0.5 mg/0.5 ml ISec IVP PRN (13:51)
[2017-08-13] MEDS: Insulin Human NPH 1 UNITS/0.01 ML SC SCH (17:16)
--- NOTE | 2017-08-13 19:32 | PN ---
DATE: 08/13/2017 This is [facility] [place] [facility] visit on the telemetry floor. For Dr. Patricia. SUBJECTIVE: The patient is a 52-year-old male status post fall recently with recent transfer from the intensive care to telemetry. He suffered a subdural hematoma with significant thrombocytopenia being monitored. With this, the patient is also noted to have chronic kidney disease, on dialysis, with a pacemaker, and is seen sitting up in bed, somnolent, but arousable. He denies any pain this visit. Appetite is good. PHYSICAL EXAMINATION VITAL SIGNS: Temperature 97.6, pulse of 66, respirations 18, blood pressure 143/59, with a pulse ox of 100%. HEENT: Unremarkable. Tongue moist, in midline. NECK: Supple. HEART: Regular rate with a pacer. LUNGS: Clear. ABDOMEN: Obese, soft, nontender. EXTREMITIES: No edema. SKIN: Warm and dry, with ecchymotic changes to the face slowly healing. NEUROLOGIC: Awake and alert, but somnolent. LABORATORY DATA: The patient's labs were done. White blood cell count of 4.1, hemoglobin 8.7, hematocrit 27.2, platelet count of 74,000. His chem metabolic panel shows a potassium of 5.3, BUN of 102, creatinine of 13.1, with an AST of 72. The patient had an EKG done yesterday read as AV sequential electronic pacer. ASSESSMENT: 1. Subdural hematoma status post fall. 2. Chronic kidney disease, on dialysis. 3. Anemia of chronic disease. 4. Thrombocytopenia. 5. Diabetes mellitus. 6. Electrolyte imbalance. 7. Abnormal liver function tests. 8. Chronic obstructive pulmonary disease. 9. Atherosclerotic cardiovascular disease, with stents and pacer. PLAN: The plan for this patient after conversation for Dr. Patricia is to continue his present medical regimen with dialysis as indicated. There is no active bleeding. No oral petechiae noted. Regarding his thrombocytopenia, we will do a manual platelet count, and consider Aranesp with dialysis as per Renal vendor management consultant's recommendations. Prognosis for this patient is guarded. This is a complex patient with a comprehensive medically necessary and appropriate visit carried out in excess of 20 minutes of [id number] time, with the patient 's lab test reviewed, with the patient's case discussed with the nurses regarding appropriate care, and it involves the patient's questions were answered to his satisfaction. Jayson Earl MD
--- NOTE | 2017-08-13 21:32 | PN ---
DATE: 08/13/2017 PULMONARY PROGRESS NOTE REFERRING PHYSICIAN: Diana Kessler MD. SUBJECTIVE: The patient is lying in the bed, head at 45 degrees. Night was unremarkable. No headache. No rhinitis. No cough. No nausea. No vomiting. No diarrhea. Has some leg discomfort, but no swelling. OBJECTIVE: GENERAL: In no acute distress. VITAL SIGNS: Temperature is 98, heart rate is 94, respiratory rate is 20, blood pressure 144/62, pulse ox 93% on room air. HEENT: Moist mucous membrane. Crowded airway. NECK: Supple. No JVD. LUNGS: Have scattered rhonchi. HEART: S1 and S2. ABDOMEN: Soft, nontender. No organomegaly. EXTREMITIES: There is trace edema. NEUROLOGICAL: Awake and alert. Follows simple command. LABORATORY DATA: Shows hemoglobin 8.7, hematocrit 27.2, WBC 4.1, platelet count 374. Sodium 138, potassium 5.3, chloride 91, bicarbonate 26, BUN 102, creatinine , glucose is 150, calcium is 8.8, AST is 72, ALT 45, alk phos is 70, albumin is 4.1. MEDICATIONS: He is on hydralazine 20 mg twice a day, Brovana inhaled twice a day, Claritin 10 mg daily, Dilaudid 0.25 mg every 6 hours p.r.n., vitamin D 50,000 units weekly, DuoNeb every 6 hours p.r.n., Flomax 0.4 mg daily, insulin coverage, Lipitor 40 mg daily, Lyrica 50 mg at bedtime, multivitamins daily, Starlix 1 tab at bedtime, nasal saline 1 spray each nostril every 2 hours p.r.n., PhosLo with meals, Prandin 2 mg before meals, prednisone 5 mg daily, Protonix 40 mg daily, Pulmicort inhaled twice a day, Robitussin DM 10 mL every 4 hours p.r.n., Singulair 10 mg at bedtime, Synthroid 25 mcg daily, Tricor 145 mg daily, Ultram 50 mg three times a day p.r.n., vancomycin 500 mg, Monday, Monday and Monday. IMPRESSION AND PLAN: Status post fall with subdural hematoma, severe peripheral vascular disease, nonhealing foot ulcer, chronic obstructive lung disease, obstructive sleep apnea syndrome, cardiac arrhythmia requiring pacemaker, pulmonary hypertension, diabetes, renal failure, dialysis dependent. Pulmonary point of view, doing okay. Encourage bilevel positive airway pressure use. Keep head at 45 degrees. Fall precaution. Gastric prophylaxis. Thank you and we will follow with you. Jarred Escalera MD
[2017-08-13] MEDS: NATEGLINIDE PO SCH (22:08)
--- NOTE | 2017-08-13 22:48 | PN ---
DATE: 08/13/2017 SUBJECTIVE: The patient is seen and examined on the bedside, looking comfortable. Early in the morning, he was complaining about shoulder pain, body pains especially after a fall at home. He said only tramadol is not helping; then we gave him dose of Dilaudid, he feels better after that. No nausea, vomiting, diarrhea. No fevers, no chills. No headache, no dizziness. PHYSICAL EXAMINATION: VITAL SIGNS: Blood pressure 108/42 , temperature 97.5, pulse 52, respiratory rate 20. HEENT: Normocephalic, atraumatic. Eyes: PERRLA. Extraocular muscles are intact. Conjunctivae are clear. Nose is patent. Mucous membrane is moist. NECK: Supple. No carotid bruit, JVD or thyromegaly. CHEST: Bilaterally symmetrical. HEART: S1 and S2 positive. LUNGS: Clear to auscultation. ABDOMEN: Soft. Bowel sounds present. No organomegaly. EXTREMITIES: No edema. No cyanosis. NEUROLOGIC: The patient is awake and alert. Moving all four extremities. No focal deficit. LABORATORY DATA: White blood cell is 4.1, hemoglobin 8.7, platelets 74,000. BUN 104, creatinine 13.1, potassium 5.3, glucose is 154. ASSESSMENT AND PLAN: Mr. Ab Gomez is a 52-year-old male with multiple medical problems, insulin-dependent diabetes mellitus, diabetic neuropathy, diabetic nephropathy, diabetic retinopathy, having dialysis 3 times a day status post fall at home resulting in 9 mm subacute hematoma. That appears to be stable. Neurosurgeon is on the case, suggested no surgeries. Aggressive medical treatment. Coronary artery disease, permanent pacemaker for life-threatening bradycardia. History of anemia, getting dose of Aranesp with dialysis, continue Monday, Monday, and Monday as per [employer] Worker. History of secondary hyperthyroidism, history of pulmonary hypertension, currently patient at transitional care unit. Continue holding Brilinta under the guidance of Neurology, neurosurgeon and Cardiology. Continue low potassium diet. Gastrointestinal and deep vein thrombosis prophylaxis. Repeat labs. We will follow up. Diana Kessler MD [facility] # [id number]
[2017-08-14] MEDS: HYDROmorphone 0.5 mg/0.5 ml ISec IVP PRN ×2 (02:04→20:10)
[2017-08-14] MEDS: Levothyroxine 25 MCG TAB PO SCH (05:32)
[2017-08-14] MEDS: Pantoprazole 40 mg EC Tab PO SCH (05:32)
[2017-08-14 07:06] LABS: BASO # 0.01 K/mm3 (0.0-2.0); BASO % 0.2 % (0.0-3.0); EOS # 0.1 (0.0-0.7); EOS % 1.6 % (1.5-5.0); GRAN # 2.68 (1.4-6.5); GRAN % 53.2 % (50.0-68.0); LYMPH # 1.7 (1.2-3.4); LYMPH % 34.1 % (22.0-35.0); MEAN CELL VOLUME 93.7 fl (80.0-105.0); MEAN CORPUSCULAR HEMOGLOBIN 29.8 pg (25.0-35.0); MEAN CORPUSCULAR HGB CONC 31.8 g/dl (31.0-37.0); MEAN PLATELET VOLUME 13.9 fl (7.0-11.0); MONO # 0.6 (0.1-0.6); MONO % 10.9 % (1.0-6.0); RBC 3.02 10^6/uL (3.5-6.1); RED CELL DISTRIBUTION WIDTH 18.9 % (11.5-14.5)
[2017-08-14] MEDS: Budesonide 0.5 mg/2 ml Inhal Susp UD IH SCH ×2 (07:17→20:55)
[2017-08-14] MEDS: Arformoterol 15 mcg/2 ml Inh Sol IH SCH ×2 (07:17→20:55)
[2017-08-14 07:19] LABS: INR 1.53 (0.93-1.08); PROTHROMBIN TIME 17.7 SECONDS (9.4-12.5)
[2017-08-14 07:34] LABS: ALBUMIN 4.2 g/dL (3.0-4.8); CALCIUM 8.8 mg/dL (8.4-10.5)
[2017-08-14] MEDS: Insulin Reg-MEDIUM-Coverage SC SCH ×4 (07:45→21:45)
--- NOTE | 2017-08-14 08:16 | CP.PCM.PN ---
Subjective - Date & Time of Evaluation Date of Evaluation: 08/14/17 Time of Evaluation: 06:05 - Subjective Subjective: Sleeping but easily awaken, denies chest pain or shortness of breath Reason for consultation and follow up: Cardiac evaluation post fall,coronary artery disease post stents on Brilinta and Aspirin. (Patient resistant to Plavix ) PPM for symptomatic bradycardia, COPD,ESRD on hemodialysis (MWF),hypertension , hyperlipidemia, obesity, diabetes mellitus, hyperlipidemia, diabetic neuropathy,diabetic retinopathy Seen and examined by me and Dr. Goodwin Objective - Vital Signs/Intake and Output Vital Signs (last 24 hours): Temp Pulse Resp BP Pulse Ox 97.7 F 64 18 122/62 97 08/14/17 06:00 08/14/17 06:00 08/14/17 06:00 08/14/17 06:00 08/14/17 06:00 Intake and Output: 08/14/17 08/14/17 06:59 18:59 Intake Total 340 Output Total 2 Balance 338 - Medications Medications: Current Medications Albuterol/Ipratropium (Duoneb 3 Mg/0.5 Mg (3 Ml) Ud) 3 ml IH [id number] PRN PRN Reason: Shortness of Breath Arformoterol Tartrate (Brovana) 15 mcg IH [id number] [facility] Last Admin: 08/14/17 07:17 Dose: 15 mcg Atorvastatin Calcium (Lipitor) 40 mg PO DIN [facility] Last Admin: 08/13/17 19:00 Dose: 40 mg Budesonide (Pulmicort Respules) 0.5 mg IH [id number] [facility] Last Admin: 08/14/17 07:17 Dose: 0.5 mg Calcium Acetate (Phoslo) 1,334 mg PO ACTID [facility] Last Admin: 08/14/17 07:54 Dose: 1,334 mg Ergocalciferol (Drisdol 50,000 Intl Units Cap) 1 cap PO WED [facility] Fenofibrate (Tricor) 145 mg PO DAILY [facility] Last Admin: 08/13/17 10:23 Dose: 145 mg Guaifenesin/Dextromethorphan (Robitussin Dm) 10 ml PO Q4H PRN PRN Reason: Cough Last Admin: 08/12/17 20:19 Dose: 10 ml Hydralazine HCl (Apresoline) 20 mg PO BID [facility] Last Admin: 08/13/17 18:59 Dose: 20 mg Hydromorphone HCl (Dilaudid) 0.25 mg IVP Q6H PRN PRN Reason: Pain, severe (8-10) Last Admin: 08/14/17 02:04 Dose: 0.25 mg Vancomycin HCl (Vancomycin 500mg In Ns) 500 mg in 100 mls @ 200 mls/hr IVPB MWF [facility] Last Admin: 08/11/17 09:28 Dose: 200 mls/hr Insulin Human NPH (Humulin N) 70 units SC ACD [facility] Last Admin: 08/13/17 17:16 Dose: Not Given Insulin Human Regular (Humulin R Med) 0 units SC ACHS [facility] PRN Reason: Protocol Last Admin: 08/14/17 07:45 Dose: Not Given Levothyroxine Sodium (Synthroid) 25 mcg PO 0600 [facility] Last Admin: 08/14/17 05:32 Dose: 25 mcg Loratadine (Claritin) 10 mg PO DAILY [facility] Last Admin: 08/13/17 10:22 Dose: 10 mg Montelukast Sodium (Singulair) 10 mg PO [facility] Last Admin: 08/13/17 22:11 Dose: 10 mg Non-Formulary Medication (Multivitamin With Iron [Multivitamins With Iron]) 1 each PO DAILY [facility] Last Admin: 08/13/17 10:17 Dose: Not Given Non-Formulary Medication (Nateglinide [Starlix]) 1 tab PO [facility] Last Admin: 08/13/17 22:08 Dose: Not Given Pantoprazole Sodium (Protonix Ec Tab) 40 mg PO 0600 [facility] Last Admin: 08/14/17 05:32 Dose: 40 mg Prednisone (Prednisone Tab) 5 mg PO DAILY [facility] Last Admin: 08/13/17 10:23 Dose: 5 mg Pregabalin (Lyrica) 50 mg PO HS [facility] Last Admin: 08/13/17 22:11 Dose: 50 mg Repaglinide (Prandin) 2 mg PO AC [facility] Last Admin: 08/14/17 07:55 Dose: 2 mg Sodium Chloride ([place] Nasal [place]) 1 ml NS Q2H PRN PRN Reason: Nasal congestion Last Admin: 08/09/17 21:06 Dose: 1 dose Tamsulosin HCl (Flomax) 0.4 mg PO DAILY [facility] Last Admin: 08/13/17 10:23 Dose: 0.4 mg Tramadol HCl (Ultram) 50 mg PO TID PRN PRN Reason: Pain, moderate (4-7) Last Admin: 08/14/17 05:32 Dose: 50 mg - Labs Labs: 08/14/17 06:54 08/14/17 06:15 PT 17.7 SECONDS (9.4-12.5) H 08/14/17 06:15 INR 1.53 (0.93-1.08) H 08/14/17 06:15 APTT 29.7 Seconds (25.1-36.5) 08/09/17 10:00 - Constitutional Appears: No Acute Distress - Eye Exam Eye Exam: Normal appearance - ENT Exam ENT Exam: Mucous Membranes Moist - Respiratory Exam Respiratory Exam: Clear to Ausculation Bilateral, NORMAL BREATHING PATTERN - Cardiovascular Exam Cardiovascular Exam: +S1, +S2 Additional comments: PPM- AV pacing AV shunt PICC - GI/Abdominal Exam GI & Abdominal Exam: Soft, Normal Bowel Sounds - Exam Additional comments: hemodialysis MWF - Extremities Exam Extremities Exam: Normal Capillary Refill - Neurological Exam Neurological Exam: Alert, Awake, Oriented x3 - Psychiatric Exam Psychiatric exam: Normal Affect, Normal Mood - Skin Skin Exam: Intact, Normal Color, Warm Assessment and Plan - Assessment and Plan (Free Text) Assessment: A 52 year old male who came in to the ER due to fall at dialysis center.He missed his dialysis Monday and came in Monday. While weighing the patient standing his legs gave way and fell. He has been falling frequently over the last 1-2 weeks, and has fallen x 2 episodes 2 days ago. History of coronary artery disease post stents x 2 06/12/17,on Brilinta and Aspirin. (Patient resistant to Plavix) PPM for symptomatic bradycardia 06/27/17, COPD,ESRD on hemodialysis (MWF),hypertension, hyperlipidemia, obesity, diabetes mellitus, hyperlipidemia, diabetic neuropathy,diabetic retinopathy Patient known to service. He was just discharged from TCU 07/11/17. CT of head showed subdural hematoma. Admitted to ICU,stabilized then transferred to telemetry. Plan: On hemodialysis Monday, Monday,and Monday, RN to check if scheduled today, K level 6.8 Feels better, complaining of arm and leg pain Brilinta and Aspirin on hold due to subdural hematoma (as per Neuro for at least 6 weeks) Concern cardiac stent thrombosis/occluding Will reevaluate and coordinate if we can start sooner Stable blood pressure ,heart rate AV pacing (telemetry) Continue current medications Continue current treatment Will follow up Plan and treatment discussed with Dr. Goodwin
[2017-08-14] MEDS: MULTIVITAMIN WITH IRON PO SCH (09:10)
[2017-08-14] MEDS: Vancomycin 500mg in NS 500 MG/100 ML BAG IVPB SCH (09:19)
--- NOTE | 2017-08-14 13:06 | PN ---
DATE: 08/14/2017 SUBJECTIVE: The patient is currently seen lying comfortable in bed on telemetry. He had an episode of nausea with no headaches. He is status post a 9 mm subdural hemorrhage secondary to a fall at home. There are possible plans for the patient to be transferred to rehab. He was turned down by the TCU. He is scheduled for dialysis later today. MEDICATIONS Medication list reviewed. The patient is on hydralazine, Brovana, Claritin, Dilaudid, vitamin D, DuoNeb, Flomax, insulin, Lipitor, Lyrica, Starlix, multivitamins, [place] nasal spray, PhosLo, Prandin, prednisone, Protonix, Pulmicort, Robitussin, Singulair, Synthroid, TriCor, Ultram, and IV vancomycin post dialysis. OBJECTIVE: INTAKE/OUTPUT: Intake 340, output 0. VITAL SIGNS: Blood pressure 103/40, pulse of 62, temperature 97.7, respiratory rate of 18, pulse ox is 97%. HEENT: Normocephalic, atraumatic. Conjunctivae are pale. Sclerae are nonicteric. NECK: Supple. No neck vein distention. CHEST: Clear to auscultation and percussion. No rales, rhonchi or wheezing. CARDIOVASCULAR: Regular rate and rhythm with /AI/MR/TR. Positive permanent pacemaker. ABDOMEN: Soft. Bowel sounds normal. Mild obesity. No distention. No rebound. No guarding. EXTREMITIES: No lower extremity edema. Diminished lower extremity pulses. Positive left upper extremity AV fistula. LABORATORY DATA AND IMAGING: CBC: White blood cell count today 5, hemoglobin 9, platelet count is 79,000. Coags, PT of 17.7 with a PTT of 29.7. Chemistries: Sodium 137, potassium is 6.8. Chloride 90 with a CO2 of 25, BUN is 116 with a creatinine of 14.7. Glucose is 130. AST is 72, bilirubin 1.2. Albumin is 4.2. ASSESSMENT: 1. Status post multiple falls at home. Last fall resulting in a 9 mm subdural hematoma. This appears to be stable. The patient had been seen by Neurosurgery and a followup has been discontinued. No aggressive intervention planned. The patient had been on chronic anticoagulation Brilinta because of a drug-eluting stent. This will be on hold for at least 2 to perhaps 6 weeks. 2. Status post permanent pacemaker for life-threatening bradycardia. 3. History of valvular heart disease. 4. History of diabetes, currently on insulin. Glucose control is variable. 5. History of end-stage renal disease. The patient is noted to be severely hyperkalemic. He needs dialysis as early as possible today. 6. History of anemia. The patient will continue maximum dose of Aranesp on dialysis. We will support him with iron as per protocol. 7. History of secondary hyperparathyroidism. Phosphorus level is 8.3. Repeat phosphorus level today. 8. History of pulmonary hypertension, stable. PLAN: 1. Awaiting possible transfer to rehab unit for rehabilitation post subdural hemorrhage. 2. The patient needs dialysis as quickly as possible today for potassium level of 6.8. We will dialyze the patient on a 1 K bath. 3. Continue to hold Brilinta as noted above. 4. Continue all dietary restrictions. 5. Continue to monitor glucose control carefully and adjust insulin accordingly. Toy Martinez MD
--- NOTE | 2017-08-14 14:55 | PN ---
DATE: 08/14/2017 PULMONARY PROGRESS NOTE REFERRING PHYSICIAN: Diana Kessler MD. SUBJECTIVE: He is lying in the bed, head at 45 degrees, sleepy, arousable. Claimed he used BiPAP 2 hours last night. No headache. No rhinitis. No nausea. No vomiting. No diarrhea. Trace leg swelling. OBJECTIVE: GENERAL: In no acute distress. VITAL SIGNS: Temperature is 98, heart rate is 59, respiratory rate is 20, blood pressure 125/47, pulse ox 97% on room air. HEENT: Moist mucous membrane. Crowded airway. Mallampati score is 4. NECK: Supple. No JVD. LUNGS: Have a fair airflow with few rhonchi. HEART: S1 and S2. ABDOMEN: Soft, nontender. No organomegaly. EXTREMITIES: Trace edema. NEUROLOGICAL: Awake, alert. Follows simple command. LABORATORY DATA: Shows hemoglobin 9, hematocrit 28.3, WBC 5, platelet count is 79. Sodium 137, potassium 6.8, chloride 90, bicarbonate 25, BUN 116, creatinine 14.7, calcium is 8.8, AST 72, ALT 47, alk phos is 65, albumin is 4.2. MEDICATIONS: He is on hydralazine 20 mg every 12 hours, also on Brovana inhaled twice a day, Claritin 10 mg daily, Dilaudid 0.25 mg every 6 hours p.r.n., vitamin D 50,000 units weekly, DuoNeb every 6 hours p.r.n., Flomax 0.4 mg daily, insulin coverage, atorvastatin 40 mg daily, Lyrica 50 mg at bedtime, multivitamins daily, Starlix 1 tab at bedtime, is before meals t.i.d., Prandin 2 mg before meals, prednisone 5 mg daily, Protonix 40 mg daily, Pulmicort inhaled twice a day, Robitussin 10 mL every 4 hours p.r.n., Singulair 10 mg daily, Synthroid 25 mcg daily, Tricor 145 mg daily, Ultram 50 mg three times a day p.r.n., vancomycin 500 mg, Monday, Monday and Monday. IMPRESSION AND PLAN: Status post fall with subdural hematoma, severe peripheral vascular disease, nonhealing foot ulcer, chronic obstructive lung disease, obstructive sleep apnea syndrome, cardiac arrhythmia requiring pacemaker, pulmonary hypertension, diabetes, renal failure, dialysis dependent. Pulmonary point of view, doing okay. Spoke to nursing staff. Requested if we can fit bilevel positive airway pressure on his for an hour or two hours until he is fully awake. Being followed by Nephrology. We will let them make a decision for potassium. Continue bronchodilator. Fall precaution. Gastric prophylaxis. Thank you and we will follow with you. Jarred Escalera MD
[2017-08-14] MEDS: Insulin Human NPH 1 UNITS/0.01 ML SC SCH (16:17)
--- NOTE | 2017-08-14 21:10 | PN ---
DATE: 08/14/2017 This is [facility]'s [facility] visit on the telemetry floor. For Dr. Patricia. SUBJECTIVE: The patient is a 52-year-old male, seen sitting up in the bed with the patient having significant nausea with vomiting. this patient at the bedside with the patient is known to have had a fall with a subdural hematoma, being followed since he was admitted to the intensive care unit. With this, the patient is at present for dialysis for his chronic kidney disease. The patient is being followed by Dr. Patricia for his anemia, being on Brilinta, with thrombocytopenia. PHYSICAL EXAMINATION: VITAL SIGNS: Temperature 98.3, pulse 103, respirations 19, blood pressure 125/47, and pulse ox of 100%. HEENT: Unremarkable. The patient is somewhat somnolent today. NECK: Supple. HEART: Regular rate. LUNGS: Scattered rhonchi. ABDOMEN: Obese, soft, and nontender. EXTREMITIES: Faint +1 edema. NEUROLOGIC: Awake and alert, but somnolent. SKIN: Warn and dry. LABORATORY DATA: The patient's labs were done with a white blood cell count of 5, hemoglobin of 9, hematocrit of 28.3, platelet count of 79,000. He had an INR of 1.53 today. His chem metabolic panel shows a potassium of 6.8, creatinine of 14.7 with a phosphorus of 10.4, magnesium of 2.9, AST of 72. ASSESSMENT: Status post fall with subdural hematoma, chronic kidney disease on dialysis, anemia of chronic disease, thrombocytopenia, diabetes mellitus, electrolyte imbalance, abnormal LFTs, chronic obstructive pulmonary disease, atherosclerotic cardiovascular disease with stents and pacer. PLAN: The plan for this patient after conversation with Dr. Patricia is to continue his present medical regimen with dialysis recommended as soon as possible for his severe electrolyte imbalance with consideration for Aranesp for his anemic indices. There is no active bleeding with no petechiae noted at the oropharynx on inspection earlier with the plan is to be monitored. His manual platelet count today was 92,000. However, his severe hyperkalemia needs to be addressed and this will be done with dialysis as per Dr. Martinez after conversation with him and with nursing staff. This is a complex patient with a comprehensive medically necessary and appropriate visit carried out in excess of 20 minutes with the patient's questions answered to his satisfaction. We had discussion with Dr. Martinez regarding his need for immediate dialysis . Jayson Earl MD
--- NOTE | 2017-08-14 23:42 | PN ---
DATE: 08/14/2017 SUBJECTIVE: The patient is a 52-year-old male. Patient was seen and examined on the bedside in the Dialysis Center, sleepy, arousable. Looks better. No hematuria or hematochezia. No swelling of the leg. No chest pain. No palpitation. No shortness of breath. Claimed he used BiPAP 2 hours last night. No fever. No chills. PHYSICAL EXAMINATION: VITAL SIGNS: Temperature 98, heart rate 59, respiratory rate 20, blood pressure 120/47, pulse oximetry 97% on room air. HEENT: Head: Normocephalic, atraumatic. Eyes: PERRLA. Extraocular muscles are intact. Conjunctivae clear. Nose patent. Mucous membrane moist. NECK: Supple. No carotid bruit. No JVD or thyromegaly. CHEST: Bilaterally symmetrical. HEART: S1 and S2 positive. LUNGS: Has fair airflow with few rhonchi. ABDOMEN: Soft. Bowel sounds present. No organomegaly. EXTREMITIES: No edema. No cyanosis. NEUROLOGIC: The patient is sleepy, arousable. Follows simple commands. LABORATORY DATA: Hemoglobin 9, hematocrit 28.3, white blood cells 5, platelets 79. Sodium 137, potassium 6.8, BUN 116, creatinine 14.7. AST 72, ALT 47. MEDICATIONS: Hydralazine, Brovana, Claritin, Dilaudid, atorvastatin, Lyrica, Pulmicort, Synthroid. ASSESSMENT AND PLAN: Mr. Jason Berger has multiple medical problems, status post fall with subdural hematoma, severe peripheral vascular disease, nonhealing foot ulcers, chronic obstructive pulmonary disease, obstructive sleep apnea syndrome, insulin-dependent diabetes mellitus, diabetic neuropathy, diabetic nephropathy, diabetic retinopathy, cardiac arrhythmia requiring pacemaker, pulmonary hypertension, getting dialysis three times a week. I did saw the patient in the Dialysis Center. Spoke to the dialysis nurse. Plan is patient need rehabilitation, tried to transitional care unit. According to transitional care unit, patient is two weeks but according to patient, evaluation was done on Monday and after three days, he is feeling more strong. We ordered to get new evaluation by the physical therapy to make a decision either or transitional care unit. Meanwhile continue present treatment. Repeat labs. We will follow up. Diana Kessler MD [facility] # [id number] RACHEL
[2017-08-15] MEDS: NATEGLINIDE PO SCH ×2 (01:20→22:21)
[2017-08-15] MEDS: HYDROmorphone 0.5 mg/0.5 ml ISec IVP PRN ×2 (04:21→22:29)
[2017-08-15] MEDS: Levothyroxine 25 MCG TAB PO SCH (05:18)
[2017-08-15] MEDS: Pantoprazole 40 mg EC Tab PO SCH (05:18)
[2017-08-15 06:12] LABS: BASO # 0.02 K/mm3 (0.0-2.0); BASO % 0.5 % (0.0-3.0); GRAN # 2.72 (1.4-6.5); GRAN % 66.6 % (50.0-68.0); HEMOGLOBIN 9.4 g/dL (14.0-18.0); LYMPH # 0.8 (1.2-3.4); LYMPH % 19.4 % (22.0-35.0); MEAN CELL VOLUME 95.5 fl (80.0-105.0); MEAN CORPUSCULAR HEMOGLOBIN 30.4 pg (25.0-35.0); MEAN CORPUSCULAR HGB CONC 31.9 g/dl (31.0-37.0); MEAN PLATELET VOLUME 13.3 fl (7.0-11.0); MONO # 0.5 (0.1-0.6); MONO % 12.5 % (1.0-6.0); RBC 3.09 10^6/uL (3.5-6.1); RED CELL DISTRIBUTION WIDTH 18.9 % (11.5-14.5); WHITE BLOOD COUNT 4.1 10^3/ul (4.5-11.0)
[2017-08-15 06:52] LABS: ALB/GLOB RATIO 0.9 (1.1-1.8); CALCIUM 8.8 mg/dL (8.4-10.5)
--- NOTE | 2017-08-15 07:01 | CP.PCM.PN ---
Subjective - Date & Time of Evaluation Date of Evaluation: 08/15/17 Time of Evaluation: 06:15 - Subjective Subjective: Awake, denies chest pain or shortness of breath, claimed had hemodialysis yesterday Reason for consultation and follow up: Cardiac evaluation post fall,coronary artery disease post stents on Brilinta and Aspirin. (Patient resistant to Plavix ) PPM for symptomatic bradycardia, COPD,ESRD on hemodialysis (MWF),hypertension , hyperlipidemia, obesity, diabetes mellitus, hyperlipidemia, diabetic neuropathy,diabetic retinopathy Seen and examined by me and Dr. Erickson Objective - Vital Signs/Intake and Output Vital Signs (last 24 hours): Temp Pulse Resp BP Pulse Ox 98.8 F 72 20 150/55 L 100 08/15/17 06:12 08/15/17 06:12 08/15/17 06:12 08/15/17 06:12 08/15/17 06:12 - Medications Medications: Current Medications Albuterol/Ipratropium (Duoneb 3 Mg/0.5 Mg (3 Ml) Ud) 3 ml IH [id number] PRN PRN Reason: Shortness of Breath Arformoterol Tartrate (Brovana) 15 mcg IH [id number] [facility] Last Admin: 08/14/17 20:55 Dose: 15 mcg Atorvastatin Calcium (Lipitor) 40 mg PO DIN [facility] Last Admin: 08/14/17 17:12 Dose: Not Given Budesonide (Pulmicort Respules) 0.5 mg IH [id number] [facility] Last Admin: 08/14/17 20:55 Dose: 0.5 mg Calcium Acetate (Phoslo) 1,334 mg PO ACTID [facility] Last Admin: 08/14/17 16:18 Dose: Not Given Ergocalciferol (Drisdol 50,000 Intl Units Cap) 1 cap PO WED [facility] Fenofibrate (Tricor) 145 mg PO DAILY [facility] Last Admin: 08/14/17 09:20 Dose: 145 mg Guaifenesin/Dextromethorphan (Robitussin Dm) 10 ml PO Q4H PRN PRN Reason: Cough Last Admin: 08/12/17 20:19 Dose: 10 ml Hydralazine HCl (Apresoline) 20 mg PO BID [facility] Last Admin: 08/14/17 17:12 Dose: Not Given Hydromorphone HCl (Dilaudid) 0.25 mg IVP Q6H PRN PRN Reason: Pain, severe (8-10) Last Admin: 08/15/17 04:21 Dose: 0.25 mg Vancomycin HCl (Vancomycin 500mg In Ns) 500 mg in 100 mls @ 200 mls/hr IVPB MWF [facility] Last Admin: 08/14/17 09:19 Dose: 200 mls/hr Insulin Human NPH (Humulin N) 70 units SC ACD [facility] Last Admin: 08/14/17 16:17 Dose: Not Given Insulin Human Regular (Humulin R Med) 0 units SC ACHS [facility] PRN Reason: Protocol Last Admin: 08/14/17 21:45 Dose: Not Given Levothyroxine Sodium (Synthroid) 25 mcg PO 0600 [facility] Last Admin: 08/15/17 05:18 Dose: 25 mcg Loratadine (Claritin) 10 mg PO DAILY [facility] Last Admin: 08/14/17 09:20 Dose: 10 mg Montelukast Sodium (Singulair) 10 mg PO [facility] Last Admin: 08/14/17 21:39 Dose: 10 mg Non-Formulary Medication (Multivitamin With Iron [Multivitamins With Iron]) 1 each PO DAILY [facility] Last Admin: 08/14/17 09:10 Dose: Not Given Non-Formulary Medication (Nateglinide [Starlix]) 1 tab PO [facility] Last Admin: 08/15/17 01:20 Dose: Not Given Pantoprazole Sodium (Protonix Ec Tab) 40 mg PO 0600 [facility] Last Admin: 08/15/17 05:18 Dose: 40 mg Prednisone (Prednisone Tab) 5 mg PO DAILY [facility] Last Admin: 08/14/17 09:20 Dose: 5 mg Pregabalin (Lyrica) 50 mg PO HS [facility] Last Admin: 08/14/17 21:39 Dose: 50 mg Repaglinide (Prandin) 2 mg PO AC [facility] Last Admin: 08/14/17 16:18 Dose: Not Given Sodium Chloride ([place] Nasal [place]) 1 ml NS Q2H PRN PRN Reason: Nasal congestion Last Admin: 08/09/17 21:06 Dose: 1 dose Tamsulosin HCl (Flomax) 0.4 mg PO DAILY [facility] Last Admin: 08/14/17 09:20 Dose: 0.4 mg Tramadol HCl (Ultram) 50 mg PO TID PRN PRN Reason: Pain, moderate (4-7) Last Admin: 08/14/17 05:32 Dose: 50 mg - Labs Labs: 08/15/17 05:30 08/15/17 05:30 PT 17.7 SECONDS (9.4-12.5) H 08/14/17 06:15 INR 1.53 (0.93-1.08) H 08/14/17 06:15 APTT 29.7 Seconds (25.1-36.5) 08/09/17 10:00 - Constitutional Appears: No Acute Distress - Eye Exam Eye Exam: Normal appearance - ENT Exam ENT Exam: Mucous Membranes Moist - Respiratory Exam Respiratory Exam: Clear to Ausculation Bilateral, NORMAL BREATHING PATTERN - Cardiovascular Exam Additional comments: PPM, AV pacing telemetry - GI/Abdominal Exam GI & Abdominal Exam: Soft, Normal Bowel Sounds - Exam Additional comments: ESRD, hemodialysis MWF - Extremities Exam Extremities Exam: Normal Capillary Refill Additional comments: Right PICC Left AV shunt (positive bruit) - Neurological Exam Neurological Exam: Alert, Awake, Oriented x3 - Psychiatric Exam Psychiatric exam: Normal Affect, Normal Mood - Skin Skin Exam: Intact, Normal Color, Warm Assessment and Plan - Assessment and Plan (Free Text) Assessment: A 52 year old male who came in to the ER due to fall at dialysis center.He missed his dialysis Monday and came in Monday. While weighing the patient standing his legs gave way and fell. He has been falling frequently over the last 1-2 weeks, and has fallen x 2 episodes 2 days ago. History of coronary artery disease post stents x 2 06/12/17,on Brilinta and Aspirin. (Patient resistant to Plavix) PPM for symptomatic bradycardia 06/27/17, COPD,ESRD on hemodialysis (MWF),hypertension, hyperlipidemia, obesity, diabetes mellitus, hyperlipidemia, diabetic neuropathy,diabetic retinopathy Patient known to service. He was just discharged from TCU 07/11/17. CT of head showed subdural hematoma. Admitted to ICU,stabilized then transferred to telemetry. Plan: Had hemodialysis yesterday Neuro, stable Brilinta and Aspirin on hold due to subdural hematoma (as per Neuro for at least 6 weeks) Concern cardiac stent thrombosis/occluding Will reevaluate and coordinate if we can start sooner Stable blood pressure ,heart rate AV pacing (telemetry) Being evaluated for TCU Continue current medications Continue current treatment Will follow up Plan and treatment discussed with Dr. Erickson
[2017-08-15] MEDS: Budesonide 0.5 mg/2 ml Inhal Susp UD IH SCH ×2 (07:36→19:38)
[2017-08-15] MEDS: Arformoterol 15 mcg/2 ml Inh Sol IH SCH ×2 (07:36→19:38)
[2017-08-15] MEDS: Insulin Reg-MEDIUM-Coverage SC SCH ×4 (08:34→22:19)
[2017-08-15] MEDS: MULTIVITAMIN WITH IRON PO SCH (09:54)
--- NOTE | 2017-08-15 13:01 | CP.PCM.PN ---
Subjective - Date & Time of Evaluation Date of Evaluation: 08/15/17 Time of Evaluation: 07:30 - Subjective Subjective: Hematology/Oncology Progress Note for Dr. Patricia Patient was seen and examined at bedside. Patient feels better overall and has been OOB. Patient denied fever, chills, shortness of breath, changes in vision, dizziness, chest pains, abdominal pains, nausea, vomiting, diarrhea, or dysuria. As per nursing staff, pt had left side pain and analgesics were administered with good effect. Patient also had labile blood glucose. Objective - Vital Signs/Intake and Output Vital Signs (last 24 hours): Temp Pulse Resp BP Pulse Ox 98.8 F 72 20 101/40 L 100 08/15/17 06:12 08/15/17 06:12 08/15/17 06:12 08/15/17 09:53 08/15/17 06:12 - Medications Medications: Current Medications Albuterol/Ipratropium (Duoneb 3 Mg/0.5 Mg (3 Ml) Ud) 3 ml IH [id number] PRN PRN Reason: Shortness of Breath Arformoterol Tartrate (Brovana) 15 mcg IH [id number] [facility] Last Admin: 08/15/17 07:36 Dose: 15 mcg Atorvastatin Calcium (Lipitor) 40 mg PO DIN [facility] Last Admin: 08/14/17 17:12 Dose: Not Given Budesonide (Pulmicort Respules) 0.5 mg IH [id number] [facility] Last Admin: 08/15/17 07:36 Dose: 0.5 mg Calcium Acetate (Phoslo) 1,334 mg PO ACTID [facility] Last Admin: 08/15/17 08:34 Dose: 1,334 mg Ergocalciferol (Drisdol 50,000 Intl Units Cap) 1 cap PO WED [facility] Fenofibrate (Tricor) 145 mg PO DAILY [facility] Last Admin: 08/15/17 09:53 Dose: 145 mg Guaifenesin/Dextromethorphan (Robitussin Dm) 10 ml PO Q4H PRN PRN Reason: Cough Last Admin: 08/12/17 20:19 Dose: 10 ml Hydralazine HCl (Apresoline) 20 mg PO BID [facility] Last Admin: 08/15/17 09:53 Dose: Not Given Hydromorphone HCl (Dilaudid) 0.25 mg IVP Q6H PRN PRN Reason: Pain, severe (8-10) Last Admin: 08/15/17 04:21 Dose: 0.25 mg Vancomycin HCl (Vancomycin 500mg In Ns) 500 mg in 100 mls @ 200 mls/hr IVPB MWF [facility] Last Admin: 08/14/17 09:19 Dose: 200 mls/hr Insulin Human NPH (Humulin N) 70 units SC ACD [facility] Last Admin: 08/14/17 16:17 Dose: Not Given Insulin Human Regular (Humulin R Med) 0 units SC ACHS [facility] PRN Reason: Protocol Last Admin: 08/15/17 08:34 Dose: 10 units Levothyroxine Sodium (Synthroid) 25 mcg PO 0600 [facility] Last Admin: 08/15/17 05:18 Dose: 25 mcg Loratadine (Claritin) 10 mg PO DAILY [facility] Last Admin: 08/15/17 09:53 Dose: 10 mg Montelukast Sodium (Singulair) 10 mg PO [facility] Last Admin: 08/14/17 21:39 Dose: 10 mg Non-Formulary Medication (Multivitamin With Iron [Multivitamins With Iron]) 1 each PO DAILY [facility] Last Admin: 08/15/17 09:54 Dose: Not Given Non-Formulary Medication (Nateglinide [Starlix]) 1 tab PO [facility] Last Admin: 08/15/17 01:20 Dose: Not Given Pantoprazole Sodium (Protonix Ec Tab) 40 mg PO 0600 [facility] Last Admin: 08/15/17 05:18 Dose: 40 mg Prednisone (Prednisone Tab) 5 mg PO DAILY [facility] Last Admin: 08/15/17 09:53 Dose: 5 mg Pregabalin (Lyrica) 50 mg PO HS [facility] Last Admin: 08/14/17 21:39 Dose: 50 mg Repaglinide (Prandin) 2 mg PO AC [facility] Last Admin: 08/15/17 08:34 Dose: 2 mg Sodium Chloride ([place] Nasal [place]) 1 ml NS Q2H PRN PRN Reason: Nasal congestion Last Admin: 08/09/17 21:06 Dose: 1 dose Tamsulosin HCl (Flomax) 0.4 mg PO DAILY [facility] Last Admin: 08/15/17 09:53 Dose: 0.4 mg Tramadol HCl (Ultram) 50 mg PO TID PRN PRN Reason: Pain, moderate (4-7) Last Admin: 08/15/17 11:45 Dose: 50 mg - Labs Labs: 08/15/17 05:30 08/15/17 05:30 PT 17.7 SECONDS (9.4-12.5) H 08/14/17 06:15 INR 1.53 (0.93-1.08) H 08/14/17 06:15 APTT 29.7 Seconds (25.1-36.5) 08/09/17 10:00 - Constitutional Appears: No Acute Distress - Head Exam Head Exam: ATRAUMATIC, NORMAL INSPECTION, NORMOCEPHALIC - Eye Exam Eye Exam: EOMI, Normal appearance, PERRL Pupil Exam: NORMAL ACCOMODATION, PERRL - ENT Exam ENT Exam: Mucous Membranes Moist, Normal Exam - Respiratory Exam Respiratory Exam: Clear to Ausculation Bilateral, NORMAL BREATHING PATTERN - Cardiovascular Exam Cardiovascular Exam: REGULAR RHYTHM, +S1, +S2. absent: Murmur - GI/Abdominal Exam GI & Abdominal Exam: Soft, Normal Bowel Sounds. absent: Tenderness - Neurological Exam Neurological Exam: Alert, Awake, CN II-XII Intact, Normal Gait, Oriented x3 - Psychiatric Exam Psychiatric exam: Normal Affect, Normal Mood - Skin Skin Exam: Dry, Intact, Normal Color, Warm Assessment and Plan - Assessment and Plan (Free Text) Assessment: 52 year old male w/PMHx COPD, CAD with 4 stents, recently placed PPM, ESRD on HD MWF, IDDM2 and HTN that presented to [facility] ED s/p mechanical fall with trauma to the head resulting in a subdural hematoma evidenced by CT Head along the falx cerebri, measuring up to 1 cm in maximum thickness with no midline shift. Patient received platelet and FFP transfusion for Brilinta reversal. Repeat CT head shows stable hematoma. Neurosurgery Dr. Frost consulted, no surgical intervention at this time. Dr. Erickson Cardiology consulted, appreciate reccs. Continue to monitor clinical status, neurochecks. CBC, CMP, blood coags. Continue with arasnep as per Nephrology, Dr. Malcolm. Hgb stable. Patient tolerated HD yesterday without incident. Patient's brilanta and Asa on hold 2/2 subdural hematoma - will continue to be held for at least 6 weeks as per neurology. BP meds held this am on account of BP. OOB,PT/OT
--- NOTE | 2017-08-15 14:20 | PN ---
DATE: 08/15/2017 SUBJECTIVE: The patient is currently seen on Telemetry. He is comfortable. He did receive dialysis yesterday, on a low K bath because of his potassium level of 6.8. He is currently comfortable today. His next dialysis day is scheduled for tomorrow on 08/16/2017. The patient relates to me that he will need to likely remain in the hospital per another week to 10 days in light of the fact that he could not restart anticoagulation for his drug-eluting stent because of his subdural bleed. He states this decision was made by his seafood manager, Dr. Erickson. MEDICATIONS: Medication list reviewed. The patient is currently on hydralazine, Brovana, Claritin, Dilaudid, vitamin D, DuoNeb, Flomax, insulin, Lipitor, Lyrica, multivitamins, iron, Starlix, [place] nasal spray, PhosLo, Prandin, prednisone, Protonix, Pulmicort, Robitussin p.r.n., Singulair, Synthroid, TriCor, Ultram p.r.n. and IV vancomycin. OBJECTIVE: INTAKE/OUTPUT: Intake is not charted. Output with dialysis yesterday. VITAL SIGNS: Blood pressure is 153/54, temperature 98.7, respiratory rate is 16 with a pulse of 64. HEENT: Exam, normocephalic and atraumatic. Conjunctivae remain pale. Sclerae are nonicteric. NECK: Supple. No neck vein distention. CHEST: Clear to auscultation and percussion. No rales, rhonchi or wheezing. CARDIOVASCULAR: Shows a regular rate and rhythm with /AI/MR/TR. Positive permanent pacemaker. ABDOMEN: Soft. Bowel sounds normal. Mild obesity. No distention. No rebound or guarding. EXTREMITIES: Show no lower extremity edema. Positive left upper extremity AV fistula. LABORATORY DATA AND IMAGING DATA: CBC, white blood cell count 4.1, hemoglobin 9.4 with a platelet count of 85,000. Chemistries show a sodium of 139, potassium 5 today and down from 6.8 yesterday. BUN 58 with a creatinine of 8.6. Glucose is 403, repeated and down to 340. Calcium 8.8. Phosphorus is extremely elevated at 10.4 yesterday. Magnesium level was 2.9. Liver enzymes, mild elevation of AST. ASSESSMENT: 1. Status post multiple falls at home resulting in a 9-mm subdural hemorrhage. The patient is off anticoagulation for all the obvious reasons. He was seen and cleared by Neurosurgery. He must remain off of chronic anticoagulation in light of his drug-eluting stent. It is felt that he would best be monitored in an inpatient setting, perhaps continued with Telemetry. The patient states he was told by his seafood manager, Dr. Erickson he will likely be here into the middle of next week. 2. Status post permanent pacemaker for life-threatening bradycardia. 3. History of valvular heart disease. 4. History of diabetes, currently on insulin. Glucose control is difficult. Sugars are in the 300 to 400 range. 5. History of end-stage renal disease. The patient will continue Monday, Monday, Monday dialysis. Perhaps using a 1.0 K bath to initiate dialysis with potassium levels remaining above 6. It is not clear to me how on a renal diet in the hospital, he is becoming hyperkalemic. 6. History of anemia. The patient will continue maximum dose of Aranesp on dialysis. I will continue IV iron per protocol. Last hemoglobin value was 9.4, improved. 7. History of secondary hyperparathyroidism. Phosphorus level unfortunately remains extremely elevated at 10.4 with a calcium level of 8.8. The patient had been on PhosLo, he has been taking two tablets with each meal. I will increase PhosLo to three tablets with each meal and the patient must adhere to a renal diet. 8. History of pulmonary hypertension, stable. PLAN: 1. The patient states that he will likely not go to the rehabilitation, but likely remain in the hospital in line of the fact that he is off chronic anticoagulation for drug-eluting stent. 2. Hemodialysis tomorrow with perhaps initiation of 1.0 K bath with potassium levels above 6. 3. Continue to hold Brilinta for the reasons noted above. 4. Continue all dietary restrictions including those pertaining to diabetes and renal disease. 5. Continue to monitor glucose closely and adjust insulin accordingly. 6. Increase of PhosLo to 3 tablets with each meal as noted above. Toy Martinez MD [facility] # [id number]
[2017-08-15] MEDS: Insulin Human NPH 1 UNITS/0.01 ML SC SCH (18:14)
--- NOTE | 2017-08-15 20:02 | CON ---
DATE: 08/15/2017 NEUROLOGY CONSULTATION CHIEF COMPLAINT: Status post mechanical fall, status post subdural hematoma. HISTORY OF PRESENTING ILLNESS: This is a 52-year-old man with past medical history of COPD, coronary artery disease with 4 stents, recently had a permanent pacemaker placement; endstage renal disease, on hemodialysis Monday, Monday and Monday; insulin-dependent diabetes mellitus, type 2; and hypertension, who presented to the hospital for mechanical fall with trauma to the head resulting in a subdural hematoma, which was seen on the CAT scan of the head along the falx cerebri on the left ranging up to 1 cm in maximum thickness, but no midline shift. Repeat CAT scan showed stable subdural hemorrhage. He received platelets and FFP for transfusion, for Brilinta reversal. He was on Brilinta and aspirin for stroke prevention and from a cardiac aspect as well. Currently, his repeat CAT scan shows some stable hematoma. He does have features of neuropathy from an underlying diabetes, which is indicating poor balance; he will need physical therapy and rehab as an outpatient. He is clinically stable at this time. His antiplatelet medications will be held at least for 4 weeks from the onset of the bleed, with a repeat CAT scan as an outpatient. We will followup as an outpatient. PAST MEDICAL HISTORY: As above. ALLERGIES: INSULIN ASPART, MOXIFLOXACIN, PENICILLIN. REVIEW OF SYSTEMS: A 14-point review of systems negative except as per the HPI. FAMILY HISTORY: Noncontributory. SOCIAL HISTORY: No illicit drug use, smoking, or EtOH abuse. MEDICATIONS: Reviewed by nurse per reconciliation sheet. PHYSICAL EXAMINATION: VITAL SIGNS: Temperature 98, blood pressure 132/42, pulse rate of 65, respiratory rate of 17. GENERAL: The patient is seen at the edge of the bed, in no acute distress. HEENT: Head is atraumatic, normocephalic. PERRLA. Extraocular muscles intact. NECK: Supple. No JVD. No adenopathy noted. LUNGS: Clear to auscultation. No adventitious sounds. HEART: S1 and S2, normal rate and rhythm. No murmur, rubs, or gallops. ABDOMEN: Soft, nontender, nondistended. Bowel sounds present. EXTREMITIES: No clubbing. No cyanosis. Peripheral pulses 2+ felt bilaterally. NEUROLOGIC: The patient is alert and oriented to person, place, month, and year. Speech is fluent without any errors. Cranial nerves II through XII intact. Motor: Moves all extremities equally. No pronator drift seen. Sensory: Decreased light touch and pinprick up to the calves bilaterally. Decreased vibration of the toes. DTRs are throughout and 1 at the knees and also at the ankles. Coordination: [id number] intact. No dysmetria noted. Gait is slightly wide-based. LABORATORY DATA: Sodium is 139, potassium of 5, chloride 90, carbon dioxide 33, BUN of 58, creatinine of 8.6, and a glucose of 403. ASSESSMENT AND PLAN: This is a 52-year-old man with past medical history of COPD, coronary artery disease with 4 stents, recently had a permanent pacemaker placement; end-stage renal disease, on hemodialysis on Monday, Monday and Monday; insulin-dependent type 2 diabetes mellitus, and hypertension, presented to the [facility] for status post mechanical fall with trauma to the head resulting in a subdural hematoma along the falx cerebri, with no midline shift. Repeat CAT scan is stable. He received platelets and fresh frozen plasma for transfusion, for Brilinta reversal. Neurosurgery was consulted. No surgical intervention at this time. He is currently stable. He has features of severe diabetic peripheral neuropathy which gives him gait dysfunction. He has fluctuation hyperglycemic events at this time at this time. We recommend; 1. No anti-platelets for at least 4 weeks with acute onset of bleed and we will have a repeat CAT scan in 4 weeks as well as follow as an outpatient to resume. 2. Monitor his electrolytes and correct accordingly. 3. Keep his blood sugars between 140 to 180, and avoid hyperglycemic acceleration. 4. PT and OT evaluation and physical therapy. Once again, thank you for this consult. Mina Moreno MD
--- NOTE | 2017-08-16 00:14 | PN ---
DATE: 08/15/2017 SUBJECTIVE: Patient is a 52-year-old male. Patient is seen and examined in his room, looking comfortable. No nausea, vomiting, diarrhea. No hematuria, hematochezia. No swelling of the leg, no chest pain, no palpitation, no headache, no dizziness. Feeling better and energetic. REVIEW OF SYSTEMS: Ten points done within normal limits except above as dictated. PHYSICAL EXAMINATION: VITAL SIGNS: Temperature 98.7, pulse 55, blood pressure 126/50, respiratory rate 16. HEENT: Head normocephalic, atraumatic. Eyes PERRLA. Extraocular muscles intact. Conjunctivae clear. Nose patent. Mucous membrane moist. NECK: Supple. No carotid bruit. No JVD or thyromegaly. CHEST: Bilaterally symmetrical. HEART: S1 and S2 positive. LUNGS: Clear to auscultation. ABDOMEN: Soft. Bowel sounds present. No organomegaly. EXTREMITIES: No edema. No cyanosis. NEUROLOGIC: Patient is awake, alert. Moving all four extremities. No focal deficit. MEDICATIONS: Hydralazine, Brovana, Claritin, Dilaudid, vitamin D, albuterol, Flomax, insulin, Lipitor, Lyrica, prednisone, TriCor, tramadol, vancomycin. LABORATORY DATA: White blood cells 4.1, hemoglobin 9.4, hematocrit 29.5, platelets 85. Sodium 139, potassium 5, BUN 58, creatinine 8.6, glucose is 455, AST 100. ASSESSMENT AND PLAN: Mr. Jason Miramontes is a 52-year-old male with leukopenia, anemia, thrombocytopenia, practically pancytopenia, has insulin-dependent diabetes mellitus, diabetic nephropathy, diabetic neuropathy, diabetic retinopathy, getting dialysis 3 times a week, abnormal liver function test, history of mechanical fall couple of times, noncompliant, missed dialysis couple of times, history of coronary artery disease, status post cardiac stenting x2 on 06/12/2017, on Brilinta and aspirin. According to Cardiology, patient is resistant to Plavix, has pacemaker because of symptomatic bradycardia, history of chronic obstructive lung disease, hypercholesterolemia, coronary artery disease, diabetes mellitus. Patient can go to Transitional Care Unit. According to legal records clerk, they wanted to do a CT scan of the head. scane was done, showed a subdural hematoma, now wanted to do again to see the stability of hematoma before restarting Brilinta. He has hemodialysis yesterday. Neuro and legal records clerk is on the case. Gastrointestinal and deep venous thrombosis prophylaxis given. Repeat labs. We will follow up. Diana Kessler MD MTDRicardo
--- NOTE | 2017-08-16 01:45 | PN ---
DATE: 08/15/2017 PULMONARY PROGRESS NOTE REFERRING PHYSICIAN: Diana Kessler MD. SUBJECTIVE: The patient is sitting on side of the bed. Night was unremarkable, tolerated CPAP well. No headache. No rhinitis. No nausea. No vomiting. No diarrhea. Trace leg swelling. OBJECTIVE: GENERAL: In no acute distress. VITAL SIGNS: Temperature is 98, heart rate 65, respiratory rate is 17, blood pressure 132/42, pulse ox 100% on nasal cannula. HEENT: Moist mucous membrane. No ulcer or thrush noted. NECK: Short thick neck. LUNGS: Have a fair airflow with rhonchi. HEART: S1 and S2. ABDOMEN: Soft, nontender. No organomegaly. EXTREMITIES: Trace edema. NEUROLOGICAL: Awake and alert. Follows simple command. MEDICATIONS: He is on hydralazine 20 mg twice a day, Brovana inhaled twice a day, Claritin 10 mg daily, Dilaudid 0.25 mg every 6 hours p.r.n., vitamin D 50,000 units weekly, DuoNeb every 6 hours p.r.n., Flomax 0.4 mg daily, insulin coverage, Lipitor 40 mg daily, Lyrica 50 mg at bedtime, multivitamins daily, Starlix 1 tab at bedtime, calcium acetate before meals t.i.d., Prandin 2 mg before meals, prednisone 5 mg daily, Protonix 40 mg daily, Pulmicort inhaled twice a day, Robitussin 10 mg every 4 hours p.r.n., Singulair 10 mg at bedtime, Synthroid 25 mcg daily, Tricor is 145 mg daily, Ultram 50 mg three times a day p.r.n., vancomycin 500 mg Monday, Monday, Monday. LABORATORY DATA: Shows hemoglobin 9.4, hematocrit 29.5, WBC 4.1, platelet count is 85. Sodium 139, potassium 5, chloride 90, bicarbonate 33, BUN 58, creatinine 8.6, glucose 263, calcium 8.8, AST 100, ALT 47, alk phos is 80. Albumin is 4. IMPRESSION AND PLAN: Status post fall with some subdural hematoma, severe peripheral vascular disease, nonhealing foot ulcer, chronic obstructive lung disease, obstructive sleep apnea syndrome, cardiac arrhythmia requiring pacemaker, pulmonary hypertension, diabetes, renal failure, dialysis dependent. Pulmonary point of view, doing okay. Continue bronchodilator. Keep head at 45 degrees. Encourage continuous positive airway pressure use. We will decrease prednisone to 3 mg daily. Gastric prophylaxis. Thank you and we will follow with you. Jarred Escalera MD
[2017-08-16] MEDS: HYDROmorphone 0.5 mg/0.5 ml ISec IVP PRN ×2 (03:50→23:50)
[2017-08-16] MEDS: Levothyroxine 25 MCG TAB PO SCH (05:47)
[2017-08-16] MEDS: Pantoprazole 40 mg EC Tab PO SCH (05:47)
--- NOTE | 2017-08-16 06:57 | CP.PCM.PN ---
Subjective - Date & Time of Evaluation Date of Evaluation: 08/16/17 Time of Evaluation: 06:35 - Subjective Subjective: Awake, feels nausea, just given dilaudid for pain, denies shortness of breath Reason for consultation and follow up: Cardiac evaluation post fall,coronary artery disease post stents on Brilinta and Aspirin. (Patient resistant to Plavix ) PPM for symptomatic bradycardia, COPD,ESRD on hemodialysis (MWF),hypertension , hyperlipidemia, obesity, diabetes mellitus, hyperlipidemia, diabetic neuropathy,diabetic retinopathy Seen and examined by me and Dr. Erickson Objective - Vital Signs/Intake and Output Vital Signs (last 24 hours): Temp Pulse Resp BP Pulse Ox 98.8 F 102 H 20 139/57 L 99 08/16/17 06:00 08/16/17 06:00 08/16/17 06:00 08/16/17 06:00 08/16/17 06:00 Intake and Output: 08/15/17 08/16/17 18:59 06:59 Intake Total 240 Balance 240 - Medications Medications: Current Medications Albuterol/Ipratropium (Duoneb 3 Mg/0.5 Mg (3 Ml) Ud) 3 ml IH [id number] PRN PRN Reason: Shortness of Breath Arformoterol Tartrate (Brovana) 15 mcg IH [id number] [facility] Last Admin: 08/15/17 19:38 Dose: 15 mcg Atorvastatin Calcium (Lipitor) 40 mg PO DIN [facility] Last Admin: 08/15/17 18:10 Dose: 40 mg Budesonide (Pulmicort Respules) 0.5 mg IH [id number] [facility] Last Admin: 08/15/17 19:38 Dose: 0.5 mg Calcium Acetate (Phoslo) 2,001 mg PO ACTID [facility] Last Admin: 08/15/17 18:11 Dose: 2,001 mg Ergocalciferol (Drisdol 50,000 Intl Units Cap) 1 cap PO WED [facility] Fenofibrate (Tricor) 145 mg PO DAILY [facility] Last Admin: 08/15/17 09:53 Dose: 145 mg Guaifenesin/Dextromethorphan (Robitussin Dm) 10 ml PO Q4H PRN PRN Reason: Cough Last Admin: 08/12/17 20:19 Dose: 10 ml Hydralazine HCl (Apresoline) 20 mg PO BID [facility] Last Admin: 08/15/17 18:10 Dose: 20 mg Hydromorphone HCl (Dilaudid) 0.25 mg IVP Q6H PRN PRN Reason: Pain, severe (8-10) Last Admin: 08/16/17 03:50 Dose: 0.25 mg Insulin Human NPH (Humulin N) 70 units SC ACD [facility] Last Admin: 08/15/17 18:14 Dose: 70 units Insulin Human Regular (Humulin R Med) 0 units SC ACHS [facility] PRN Reason: Protocol Last Admin: 08/15/17 22:19 Dose: Not Given Levothyroxine Sodium (Synthroid) 25 mcg PO 0600 [facility] Last Admin: 08/16/17 05:47 Dose: 25 mcg Loratadine (Claritin) 10 mg PO DAILY [facility] Last Admin: 08/15/17 09:53 Dose: 10 mg Montelukast Sodium (Singulair) 10 mg PO HS [facility] Last Admin: 08/15/17 22:21 Dose: 10 mg Non-Formulary Medication (Multivitamin With Iron [Multivitamins With Iron]) 1 each PO DAILY [facility] Last Admin: 08/15/17 09:54 Dose: Not Given Non-Formulary Medication (Nateglinide [Starlix]) 1 tab PO HS [facility] Last Admin: 08/15/17 22:21 Dose: 1 tab Pantoprazole Sodium (Protonix Ec Tab) 40 mg PO 0600 [facility] Last Admin: 08/16/17 05:47 Dose: 40 mg Prednisone (Prednisone Tab) 3 mg PO DAILY [facility] Pregabalin (Lyrica) 50 mg PO HS [facility] Last Admin: 08/15/17 22:20 Dose: 50 mg Repaglinide (Prandin) 2 mg PO AC [facility] Last Admin: 08/15/17 18:11 Dose: 2 mg Sodium Chloride ([place] Nasal [place]) 1 ml NS Q2H PRN PRN Reason: Nasal congestion Last Admin: 08/15/17 18:12 Dose: 1 dose Tamsulosin HCl (Flomax) 0.4 mg PO DAILY [facility] Last Admin: 08/15/17 09:53 Dose: 0.4 mg Tramadol HCl (Ultram) 50 mg PO TID PRN PRN Reason: Pain, moderate (4-7) Last Admin: 08/15/17 11:45 Dose: 50 mg - Labs Labs: 08/15/17 05:30 08/15/17 05:30 PT 17.7 SECONDS (9.4-12.5) H 08/14/17 06:15 INR 1.53 (0.93-1.08) H 08/14/17 06:15 APTT 29.7 Seconds (25.1-36.5) 08/09/17 10:00 - Constitutional Appears: No Acute Distress - Head Exam Head Exam: NORMOCEPHALIC - ENT Exam ENT Exam: Mucous Membranes Moist - Respiratory Exam Respiratory Exam: Clear to Ausculation Bilateral, NORMAL BREATHING PATTERN - Cardiovascular Exam Cardiovascular Exam: +S1, +S2 Additional comments: PPM Telemetry, AV pacing right PICC left AV shunt - GI/Abdominal Exam GI & Abdominal Exam: Distended, Soft, Normal Bowel Sounds - Extremities Exam Extremities Exam: Normal Capillary Refill - Neurological Exam Neurological Exam: Alert, Awake, Oriented x3 - Psychiatric Exam Psychiatric exam: Normal Affect, Normal Mood - Skin Skin Exam: Intact, Normal Color, Warm Assessment and Plan - Assessment and Plan (Free Text) Assessment: A 52 year old male who came in to the ER due to fall at dialysis center.He missed his dialysis Monday and came in Monday. While weighing the patient standing his legs gave way and fell. He has been falling frequently over the last 1-2 weeks, and has fallen x 2 episodes 2 days ago. History of coronary artery disease post stents x 2 06/12/17,on Brilinta and Aspirin. (Patient resistant to Plavix) PPM for symptomatic bradycardia 06/27/17, COPD,ESRD on hemodialysis (MWF),hypertension, hyperlipidemia, obesity, diabetes mellitus, hyperlipidemia, diabetic neuropathy,diabetic retinopathy Patient known to service. He was just discharged from TCU 07/11/17. CT of head showed subdural hematoma. Admitted to ICU,stabilized then transferred to telemetry. Plan: Had dilaudid for left arm pain and legs (chronic) Zofran given for nausea this morning, otherwise in good spirit Pacemaker not 100 % AV capturing, will interrogate, possible lead dislodge Chest PA/lateral Brilinta and Aspirin on hold due to subdural hematoma (as per Neuro for at least 6 weeks) Concern cardiac stent thrombosis/occluding Will reevaluate and coordinate if we can start sooner Stable blood pressure Being evaluated for TCU Continue current medications Continue current treatment Will follow up Plan and treatment discussed with Dr. Erickson
[2017-08-16] MEDS: Insulin Reg-MEDIUM-Coverage SC SCH ×4 (07:42→21:50)
[2017-08-16] MEDS: Budesonide 0.5 mg/2 ml Inhal Susp UD IH SCH ×2 (07:43→19:45)
[2017-08-16] MEDS: Arformoterol 15 mcg/2 ml Inh Sol IH SCH ×2 (07:43→19:45)
--- NOTE | 2017-08-16 08:48 | RAD ---
HISTORY: evaluate pacemaker leads rule out dislodge COMPARISON: 08/08/2017 TECHNIQUE: Chest PA and lateral FINDINGS: LUNGS: Mild pulmonary venous congestion suggested similar and are slightly less than before PLEURA: No significant pleural effusion identified. No pneumothorax apparent. CARDIOVASCULAR: Moderate cardiomegaly-similar Position/ configuration of pacemaker gross discontinuity of the leads apparent. If suspect such please, obtained cardiology consultation as well OSSEOUS STRUCTURES: No significant abnormalities. VISUALIZED UPPER ABDOMEN: Normal. OTHER FINDINGS: None. IMPRESSION: Cardiomegaly an mild pulmonary venous congestion -as above. Cardiomegaly is similar. Pulmonary venous congestion similar and/or slightly less than before. No gross interruption in the pacemaker leads apparent. If suspect such please, obtained cardiology consultation as well
[2017-08-16] MEDS ORDERED: Ergocalciferol 50,000 Intl Units Cap PO SCH (10:00)
[2017-08-16] MEDS: Ergocalciferol 50,000 Intl Units Cap PO SCH (10:07)
[2017-08-16] MEDS: MULTIVITAMIN WITH IRON PO SCH (10:08)
[2017-08-16 14:06] LABS: BASO # 0.01 K/mm3 (0.0-2.0); BASO % 0.2 % (0.0-3.0); EOS # 0.1 (0.0-0.7); EOS % 1.1 % (1.5-5.0); GRAN # 3.02 (1.4-6.5); GRAN % 68.5 % (50.0-68.0); HEMOGLOBIN 8.9 g/dL (14.0-18.0); LYMPH # 0.9 (1.2-3.4); LYMPH % 19.5 % (22.0-35.0); MEAN CELL VOLUME 93.5 fl (80.0-105.0); MEAN CORPUSCULAR HEMOGLOBIN 30.3 pg (25.0-35.0); MEAN CORPUSCULAR HGB CONC 32.4 g/dl (31.0-37.0); MEAN PLATELET VOLUME 11.8 fl (7.0-11.0); MONO # 0.5 (0.1-0.6); MONO % 10.7 % (1.0-6.0); RBC 2.94 10^6/uL (3.5-6.1); RED CELL DISTRIBUTION WIDTH 17.9 % (11.5-14.5); WHITE BLOOD COUNT 4.4 10^3/ul (4.5-11.0)
[2017-08-16] MEDS ORDERED: Darbepoetin Alfa 100 mcg/ml Inj IVP ONE (14:09)
[2017-08-16 14:21] LABS: CALCIUM 9.5 mg/dL (8.4-10.5)
[2017-08-16] MEDS: Insulin Human NPH 1 UNITS/0.01 ML SC SCH (15:50)
--- NOTE | 2017-08-16 18:35 | PN ---
DATE: 08/16/2017 PULMONARY PROGRESS NOTE REFERRING PHYSICIAN: Dr. Kessler. SUBJECTIVE: The patient is lying in the dialysis bed. Night was unremarkable. Used CPAP since this morning. Had some nausea and vomiting. No headache or rhinitis. No nausea, no dysuria. No leg pain. OBJECTIVE: GENERAL: In no acute distress. VITAL SIGNS: Temperature is 98, heart rate 62, respiratory rate is 20, blood pressure , pulse ox 100% on 2 liters nasal cannula. HEENT: Moist mucous membrane. Crowded airway. NECK: Supple. No JVD. LUNGS: Have a fair airflow with a few rhonchi. HEART: S1, S2. ABDOMEN: Positive bowel sounds. Soft, nontender, nondistended. EXTREMITIES: Not much edema. NEUROLOGIC: Awake, alert, follows simple command. MEDICATIONS: He is on hydralazine 20 mg twice a day, which is on hold; Brovana inhaled twice a day; Claritin 10 mg daily; Dilaudid 0.25 mg every 6 hours p.r.n., vitamin D 50,000 units weekly, DuoNeb every 6 hours p.r.n., Flomax 0.4 mg daily, insulin coverage, Lipitor 40 mg daily, Lyrica 50 mg at bedtime, also getting multivitamins, Starlix 1 tablet at bedtime, nasal saline every 2 hours p.r.n., PhosLo before meals t.i.d., Prandin 2 mg before meals, prednisone 3 mg daily; Protonix 40 mg daily; Pulmicort inhaled twice a day, Robitussin DM every 4 hours p.r.n., Singulair 10 mg daily, Synthroid 25 mcg daily, TriCor 145 mg daily, Ultram 50 mg every 8 hours p.r.n. DATA: Laboratory data shows hemoglobin from yesterday 9.4. Blood sugar this morning is 119. Chest x-ray done this morning shows cardiomegaly, mild pulmonary venous congestion. He is due for dialysis; otherwise, not much change. IMPRESSION AND PLAN: Status post fall with subdural hematoma, severe peripheral vascular disease, nonhealing leg ulcers, chronic obstructive lung disease, obstructive sleep apnea syndrome, cardiac arrhythmia requiring pacemaker, pulmonary hypertension, diabetes, renal failure, dialysis dependent, had some nausea and vomiting this morning. No abdominal pain or discomfort, did not eat breakfast and lunch. We will repeat CT of the head without contrast to assure the stability of subdural hematoma. Continue bronchodilator. Encourage CPAP use. We will follow with you. Jarred Escalera MD
--- NOTE | 2017-08-16 18:51 | CT ---
PROCEDURE: CT HEAD WITHOUT CONTRAST. HISTORY: Follow-up subdural hematoma. New vomiting COMPARISON: Comparison made with prior CT scan brain 08/09/2017 TECHNIQUE: Axial computed tomography images were obtained through the head/brain without intravenous contrast. Note that the examination is limited by motion artifact. Radiation dose: Total exam DLP = 845.76 mGy-cm. This CT exam was performed using one or more of the following dose reduction techniques: Automated exposure control, adjustment of the mA and/or kV according to patient size, and/or use of iterative reconstruction technique. FINDINGS: HEMORRHAGE: The at previously noted left parasagittal interhemispheric subdural hematoma appears slightly decreased in size. The hemorrhage has also decreased in density to slightly as well. . There is persistent mild mass effect on the left parasagittal aspect of the superior frontal lobe. No new hemorrhages. BRAIN: Suspect minor chronic periventricular white matter ischemic changes. Moderate central volume loss evidenced by disproportionate enlargement of the ventricles compared the sulci. Mild vascular calcifications both carotid siphons and vertebral arteries. VENTRICLES: Unremarkable. No hydrocephalus. CALVARIUM: There are no acute calvarial fracture seen. Soft tissue calcifications within the scalp again noted consistent with underlying IDDM. PARANASAL SINUSES: Unremarkable as visualized. No significant inflammatory changes. MASTOID AIR CELLS: Unremarkable as visualized. No inflammatory changes. OTHER FINDINGS: Changes of bilateral cataract surgery again noted. IMPRESSION: Re- demonstrated is a left parasagittal interhemispheric subdural hematoma which has decreased in size slightly the hematoma has also decreased in density slightly as well. . No new hemorrhages . Suspect mild chronic white matter ischemic changes. Moderate central volume loss
[2017-08-16] MEDS: NATEGLINIDE PO SCH (21:45)
--- NOTE | 2017-08-17 01:19 | PN ---
DATE: 08/16/2017 SUBJECTIVE: The patient is a 52-year-old male. The patient looks comfortable. Seen in his room. No nausea, vomiting, diarrhea. Used CPAP since this morning. No headache. No chest pain. No palpitation. No fever. No chills. No hematuria. No hematochezia. No swelling of the leg. No headache. No dizziness. PHYSICAL EXAMINATION: VITAL SIGNS: Temperature 98.6, heart rate 62, respiratory rate 18, blood pressure 120/80, pulse oximetry 100% on 2 L nasal cannula. HEENT: Head normocephalic, atraumatic. Eyes PERRLA. Extraocular muscles intact. Conjunctivae clear. Nose patent. Mucous membrane moist. NECK: Supple. No carotid bruit. No JVD or thyromegaly. CHEST: Bilaterally symmetrical. HEART: S1 and S2 positive. LUNGS: Clear to auscultation. ABDOMEN: Soft. Bowel sounds positive. No organomegaly. EXTREMITIES: No edema. No cyanosis. NEUROLOGICAL: The patient is awake and alert. Moving all 4 extremities. No focal deficits. LABORATORY DATA: We do not have labs today, but I reviewed old labs. MEDICATIONS: Hydralazine, Brovana, Claritin, Dilaudid, vitamin D, DuoNeb, Flomax, insulin, Lipitor, Lyrica, Starlix, nasal spray, Prandin, Protonix, Pulmicort, Tricor. ASSESSMENT AND PLAN: Mr. Jason Berger, 52-year-old male with multiple comorbidities; status post fall; subdural hematoma; severe peripheral vascular disease; nonhealing leg ulcer; chronic obstructive lung disease; obstructive sleep apnea syndrome; cardiac arrhythmias requiring pacemaker; pulmonary hypertension; insulin-dependent diabetes mellitus, not very well controlled; renal failure, on hemodialysis [address] Escalera is repeating CAT scan of the head without contrast to assure the stability of the subdural hematoma. Continue bronchodilators, continuous positive airway pressure. Actually, the patient went for CAT scan of the head and chest x-rays. According to CAT scan redemonstrated is a left parasagittal interhemispheric subdural hematoma, which had decreased in size slightly. The hematoma has also decreased in density slightly as well. No new hemorrhage. Suspect mild chronic white matter ischemic changes. Moderate central volume loss. We will continue present treatment. I appreciated Dr. Escalera, Dr. Erickson and Dr. Mina Moreno's input. Dr. Toy Urrutia is on the case also. We will follow up. Diana Kessler MD
--- NOTE | 2017-08-17 01:57 | PN ---
DATE: 08/16/2017 This is [facility] [place] [facility] visit on the telemetry floor. For Dr. Patricia. SUBJECTIVE: The patient is a 52-year-old male, seen sitting up in bed, now status post dialysis with his creatinine significantly improved from a value of 14.7 on 08/14 with a repeat of 8.6 on 08/15, now with a value of 11 earlier today. However, his hemoglobin remains compromised at 8.9 with considerations for Aranesp as per Dr. Martinez, his renal security and privacy consultant. His hemoglobin is 9.4 yesterday. The patient's PT was , INR 1.5 two days prior. Platelet count again is being monitored, a value of 76 with a previous value of 79 with manual count of 92,000. No active bleeding. OBJECTIVE/PHYSICAL EXAMINATION: VITAL SIGNS: Temperature is 98.8, pulse 81, respirations 16, blood pressure 139/57 with pulse ox 100%. HEENT: Unremarkable. The patient has nebulizer mask on now. NECK: Supple. HEART: Regular rate, occasional ectopic beats. LUNGS: Rare rhonchi. ABDOMEN: Obese, soft, nontender. EXTREMITIES: Faint +1 edema. NEUROLOGIC: Awake and alert. SKIN: Warm and dry. LABORATORY DATA: The patient's labs were done, white blood cell count of 4.4, hemoglobin 8.9, hematocrit 27.5, platelet count of 76,000. His chem metabolic panel showed a potassium of 5.4, BUN of 81, creatinine of 11. The patient had a CT scan of his head done earlier today, it demonstrated left parasagittal interhemispheric subdural hematoma, which has decreased in size, slightly the hematoma is also decreased in density slightly as well. No new hemorrhages. Suspect mild chronic white matter ischemic changes, moderate central volume loss. The patient also had a chest x-ray done today, it was read as cardiomegaly and similar pulmonary venous congestion, slightly less than before. No gross interruption in the pacemaker leads apparent. ASSESSMENT: For this patient is that of subdural hematoma, status post fall; chronic kidney disease, on dialysis; chronic obstructive pulmonary disease; atherosclerotic cardiovascular disease with four stents; permeant pacer; status post transfusion of fresh frozen plasma and platelets on 08/08 and 08/09 and the patient had previously been on Brilinta, which has since been discontinued; obesity; electrolyte imbalance; anemia and thrombocytopenia. PLAN: For this patient, after conversation with Dr. Patricia is to continue present medical regimen as per Dr. Kessler with consult with Dr. Tiffanie crawford with consideration to restart anticoagulation after approximately four week's time. Also physiotherapy as indicated and continuation of dialysis. This is a complex patient with a comprehensive medically necessary and appropriate visit carried out in excess of 20 minutes [id number]-og-[id number] time with the patient with the patient's questions answered to his satisfaction. Prognosis is guarded. Jayson Earl MD
[2017-08-17] MEDS: Pantoprazole 40 mg EC Tab PO SCH (05:30)
[2017-08-17] MEDS: Levothyroxine 25 MCG TAB PO SCH (05:30)
--- NOTE | 2017-08-17 07:22 | CP.PCM.PN ---
Subjective - Date & Time of Evaluation Date of Evaluation: 08/17/17 Time of Evaluation: 06:20 - Subjective Subjective: Awake, feels nausea, just given dilaudid for pain, denies shortness of breath Reason for consultation and follow up: Cardiac evaluation post fall,coronary artery disease post stents on Brilinta and Aspirin. (Patient resistant to Plavix ) PPM for symptomatic bradycardia, COPD,ESRD on hemodialysis (MWF),hypertension , hyperlipidemia, obesity, diabetes mellitus, hyperlipidemia, diabetic neuropathy,diabetic retinopathy Seen and examined by me and Dr. Erickson Objective - Vital Signs/Intake and Output Vital Signs (last 24 hours): Temp Pulse Resp BP Pulse Ox 98.6 F 66 20 130/49 L 99 08/17/17 05:55 08/17/17 05:55 08/17/17 05:55 08/17/17 05:55 08/17/17 05:55 Intake and Output: 08/17/17 08/17/17 06:59 18:59 Intake Total 240 Balance 240 - Medications Medications: Current Medications Albuterol/Ipratropium (Duoneb 3 Mg/0.5 Mg (3 Ml) Ud) 3 ml IH [id number] PRN PRN Reason: Shortness of Breath Arformoterol Tartrate (Brovana) 15 mcg IH [id number] [facility] Last Admin: 08/16/17 19:45 Dose: 15 mcg Atorvastatin Calcium (Lipitor) 40 mg PO DIN [facility] Last Admin: 08/16/17 18:45 Dose: 40 mg Budesonide (Pulmicort Respules) 0.5 mg IH [id number] [facility] Last Admin: 08/16/17 19:45 Dose: 0.5 mg Calcium Acetate (Phoslo) 2,001 mg PO ACTID [facility] Last Admin: 08/16/17 15:51 Dose: Not Given Ergocalciferol (Drisdol 50,000 Intl Units Cap) 1 cap PO WED [facility] Last Admin: 08/16/17 10:07 Dose: 1 cap Fenofibrate (Tricor) 145 mg PO DAILY [facility] Last Admin: 08/16/17 10:07 Dose: 145 mg Guaifenesin/Dextromethorphan (Robitussin Dm) 10 ml PO Q4H PRN PRN Reason: Cough Last Admin: 08/12/17 20:19 Dose: 10 ml Hydralazine HCl (Apresoline) 20 mg PO BID [facility] Hydromorphone HCl (Dilaudid) 0.25 mg IVP Q6H PRN PRN Reason: Pain, severe (8-10) Last Admin: 08/16/17 23:50 Dose: 0.25 mg Insulin Human NPH (Humulin N) 70 units SC ACD [facility] Last Admin: 08/16/17 15:50 Dose: Not Given Insulin Human Regular (Humulin R Med) 0 units SC ACHS [facility] PRN Reason: Protocol Last Admin: 08/16/17 21:50 Dose: Not Given Levothyroxine Sodium (Synthroid) 25 mcg PO 0600 [facility] Last Admin: 08/17/17 05:30 Dose: 25 mcg Loratadine (Claritin) 10 mg PO DAILY [facility] Last Admin: 08/16/17 10:07 Dose: 10 mg Montelukast Sodium (Singulair) 10 mg PO HS [facility] Last Admin: 08/16/17 21:45 Dose: 10 mg Non-Formulary Medication (Multivitamin With Iron [Multivitamins With Iron]) 1 each PO DAILY [facility] Last Admin: 08/16/17 10:08 Dose: Not Given Non-Formulary Medication (Nateglinide [Starlix]) 1 tab PO HS [facility] Last Admin: 08/16/17 21:45 Dose: Not Given Ondansetron HCl (Zofran Inj) 4 mg IVP Q6H PRN PRN Reason: Nausea/Vomiting Pantoprazole Sodium (Protonix Ec Tab) 40 mg PO 0600 [facility] Last Admin: 08/17/17 05:30 Dose: 40 mg Prednisone (Prednisone Tab) 3 mg PO DAILY [facility] Last Admin: 08/16/17 10:09 Dose: 3 mg Pregabalin (Lyrica) 50 mg PO HS [facility] Last Admin: 08/16/17 21:45 Dose: 50 mg Repaglinide (Prandin) 2 mg PO AC [facility] Last Admin: 08/16/17 15:51 Dose: Not Given Sodium Chloride ([place] Nasal [place]) 1 ml NS Q2H PRN PRN Reason: Nasal congestion Last Admin: 08/15/17 18:12 Dose: 1 dose Tamsulosin HCl (Flomax) 0.4 mg PO DAILY [facility] Last Admin: 08/16/17 10:07 Dose: 0.4 mg Tramadol HCl (Ultram) 50 mg PO TID PRN PRN Reason: Pain, moderate (4-7) Last Admin: 08/15/17 11:45 Dose: 50 mg - Labs Labs: 08/16/17 14:00 08/16/17 14:00 PT 17.7 SECONDS (9.4-12.5) H 08/14/17 06:15 INR 1.53 (0.93-1.08) H 08/14/17 06:15 APTT 29.7 Seconds (25.1-36.5) 08/09/17 10:00 - Constitutional Appears: No Acute Distress - Head Exam Head Exam: NORMOCEPHALIC - Eye Exam Eye Exam: Normal appearance - ENT Exam ENT Exam: Mucous Membranes Moist - Respiratory Exam Respiratory Exam: Clear to Ausculation Bilateral, NORMAL BREATHING PATTERN - Cardiovascular Exam Cardiovascular Exam: +S1, +S2 Additional comments: Telemetry NSR PPM AV shunt - GI/Abdominal Exam GI & Abdominal Exam: Distended, Soft, Normal Bowel Sounds - Extremities Exam Extremities Exam: Normal Capillary Refill - Neurological Exam Neurological Exam: Alert, Awake, Oriented x3 - Psychiatric Exam Psychiatric exam: Normal Affect, Normal Mood - Skin Skin Exam: Intact, Normal Color, Warm Assessment and Plan - Assessment and Plan (Free Text) Assessment: A 52 year old male who came in to the ER due to fall at dialysis center.He missed his dialysis Monday and came in Monday. While weighing the patient standing his legs gave way and fell. He has been falling frequently over the last 1-2 weeks, and has fallen x 2 episodes 2 days ago. History of coronary artery disease post stents x 2 06/12/17,on Brilinta and Aspirin. (Patient resistant to Plavix) PPM for symptomatic bradycardia 06/27/17, COPD,ESRD on hemodialysis (MWF),hypertension, hyperlipidemia, obesity, diabetes mellitus, hyperlipidemia, diabetic neuropathy,diabetic retinopathy Patient known to service. He was just discharged from TCU 07/11/17. CT of head showed subdural hematoma. Admitted to ICU,stabilized then transferred to telemetry. Plan: Feels better today CT of head yesterday resolving subdural hematoma Interrogation done and 100% capture and no evidence of lead dislodgement Brilinta and Aspirin on hold due to subdural hematoma (as per Neuro for at least 6 weeks) Concern cardiac stent thrombosis/occluding Will reevaluate and coordinate if we can start sooner Stable blood pressure Being evaluated for TCU Continue current medications Continue current treatment Will follow up Plan and treatment discussed with Dr. Erickson
[2017-08-17] MEDS: Arformoterol 15 mcg/2 ml Inh Sol IH SCH ×2 (07:30→19:25)
[2017-08-17] MEDS: Budesonide 0.5 mg/2 ml Inhal Susp UD IH SCH ×2 (07:32→19:25)
--- NOTE | 2017-08-17 08:15 | PN ---
DATE: 08/16/2017 Addendum to initial progress note dictated by nurse practitioner, Karlie Moreau. REASON FOR ADDENDUM: Pacemaker interrogation done onsite as well as from distance. REMOTE FINDINGS: No evidence of malfunctioning of pacemaker noted. Device function is completely normal and complex interrogation is in the chart. A normal A-sensed and V paced noted. Adequate threshold, possibly is artifact from the hospital monitor, so we will discontinue telemetry and continue to treat medically. Thank you Dr. Kessler, for providing the opportunity in taking care of the patientAb. Jarred Erickson MD
[2017-08-17] MEDS: Insulin Reg-MEDIUM-Coverage SC SCH ×4 (08:26→21:46)
--- NOTE | 2017-08-17 09:13 | PN ---
DATE: 08/16/2017 SUBJECTIVE: The patient is seen lying in bed. He is awake. He is alert. He is comfortable. He denies any pain. Denies any shortness of breath. PHYSICAL EXAMINATION: GENERAL: Obese, middle-aged male lying in bed. VITAL SIGNS: Blood pressure 108/39, heart rate 62, respiratory rate 18, temperature 98.8. HEENT: Normocephalic, atraumatic, positive pallor. NECK: Supple, no JVD. LUNGS: Bilateral equal air entry, bilateral rhonchi, equal air entry. CARDIAC: S1 and S2, regular rate and rhythm, no murmur, no rub. ABDOMEN: Obese, distended, soft, nontender, bowel sounds present. EXTREMITIES: Chronic stasis changes. INTAKE AND OUTPUT: Not charted. LABORATORY DATA: No new labs today. Yesterday, hemoglobin 9.4. Sodium 139, potassium 5, chloride 90, CO2 33, BUN 58, creatinine 8.6, glucose 403, calcium 8.8, total bili 1.3, AST 100, ALT 47. Chest x-ray today, cardiomegaly and mild pulmonary venous congestion. No interruption of pacemaker leads. Eva Malcolm MD
[2017-08-17] MEDS: MULTIVITAMIN WITH IRON PO SCH (10:08)
[2017-08-17] MEDS: HYDROmorphone 0.5 mg/0.5 ml ISec IVP PRN (10:43)
--- NOTE | 2017-08-17 15:40 | CP.PCM.PN ---
Subjective - Date & Time of Evaluation Date of Evaluation: 08/17/17 Time of Evaluation: 07:00 - Subjective Subjective: Heme Once Progress Note Patient was seen and examined at bedside. No acute complaints at this time. As per nursing staff, pt had a nosebleed on account of "sniffing alcohol" with alcohol pads and towel soaked in alcohol. Patient was educated and advised to stop doing so and patient coferred understanding and agreed to stop. Patient otherwise has no complaints. patient is tolerating po intake is moving bowels and bladder regularly. pt denied fever, chills, shortness of breath, chest pains , abdominal pains, nausea, vomiting, diarrhea, constipation, or dysuria. Objective - Vital Signs/Intake and Output Vital Signs (last 24 hours): Temp Pulse Resp BP Pulse Ox 98.6 F 67 20 161/49 H 99 08/17/17 05:55 08/17/17 10:07 08/17/17 05:55 08/17/17 10:07 08/17/17 05:55 Intake and Output: 08/17/17 08/17/17 06:59 18:59 Intake Total 240 480 Output Total 0 Balance 240 480 - Medications Medications: Current Medications Albuterol/Ipratropium (Duoneb 3 Mg/0.5 Mg (3 Ml) Ud) 3 ml IH [id number] PRN PRN Reason: Shortness of Breath Arformoterol Tartrate (Brovana) 15 mcg IH [id number] [facility] Last Admin: 08/17/17 07:30 Dose: 15 mcg Aspirin (Ecotrin) 81 mg PO DAILY [facility] Atorvastatin Calcium (Lipitor) 40 mg PO DIN [facility] Last Admin: 08/16/17 18:45 Dose: 40 mg Budesonide (Pulmicort Respules) 0.5 mg IH [id number] [facility] Last Admin: 08/17/17 07:32 Dose: 0.5 mg Calcium Acetate (Phoslo) 2,001 mg PO ACTID [facility] Last Admin: 08/17/17 12:54 Dose: 2,001 mg Ergocalciferol (Drisdol 50,000 Intl Units Cap) 1 cap PO WED [facility] Last Admin: 08/16/17 10:07 Dose: 1 cap Fenofibrate (Tricor) 145 mg PO DAILY [facility] Last Admin: 08/17/17 10:08 Dose: 145 mg Guaifenesin/Dextromethorphan (Robitussin Dm) 10 ml PO Q4H PRN PRN Reason: Cough Last Admin: 08/12/17 20:19 Dose: 10 ml Hydralazine HCl (Apresoline) 20 mg PO BID [facility] Last Admin: 08/17/17 10:07 Dose: 20 mg Insulin Human NPH (Humulin N) 70 units SC ACD [facility] Last Admin: 08/16/17 15:50 Dose: Not Given Insulin Human Regular (Humulin R Med) 0 units SC ACHS [facility] PRN Reason: Protocol Last Admin: 08/17/17 12:53 Dose: 7 units Levothyroxine Sodium (Synthroid) 25 mcg PO 0600 [facility] Last Admin: 08/17/17 05:30 Dose: 25 mcg Loratadine (Claritin) 10 mg PO DAILY [facility] Last Admin: 08/17/17 10:08 Dose: 10 mg Montelukast Sodium (Singulair) 10 mg PO HS [facility] Last Admin: 08/16/17 21:45 Dose: 10 mg Non-Formulary Medication (Multivitamin With Iron [Multivitamins With Iron]) 1 each PO DAILY [facility] Last Admin: 08/17/17 10:08 Dose: Not Given Non-Formulary Medication (Nateglinide [Starlix]) 1 tab PO [facility] Last Admin: 08/16/17 21:45 Dose: Not Given Ondansetron HCl (Zofran Inj) 4 mg IVP Q6H PRN PRN Reason: Nausea/Vomiting Pantoprazole Sodium (Protonix Ec Tab) 40 mg PO 0600 [facility] Last Admin: 08/17/17 05:30 Dose: 40 mg Prednisone (Prednisone Tab) 3 mg PO DAILY [facility] Last Admin: 08/17/17 10:07 Dose: 3 mg Pregabalin (Lyrica) 50 mg PO HS [facility] Last Admin: 08/16/17 21:45 Dose: 50 mg Repaglinide (Prandin) 2 mg PO AC [facility] Last Admin: 08/17/17 12:54 Dose: 2 mg Sevelamer HCl (Renagel) 1,600 mg PO TID [facility] Last Admin: 08/17/17 13:33 Dose: 1,600 mg Sodium Chloride ([place] Nasal [place]) 1 ml NS Q2H PRN PRN Reason: Nasal congestion Last Admin: 08/15/17 18:12 Dose: 1 dose Tamsulosin HCl (Flomax) 0.4 mg PO DAILY [facility] Last Admin: 08/17/17 10:07 Dose: 0.4 mg Tramadol HCl (Ultram) 50 mg PO TID PRN PRN Reason: Pain, moderate (4-7) Last Admin: 08/15/17 11:45 Dose: 50 mg - Labs Labs: 08/16/17 14:00 08/16/17 14:00 PT 17.7 SECONDS (9.4-12.5) H 08/14/17 06:15 INR 1.53 (0.93-1.08) H 08/14/17 06:15 APTT 29.7 Seconds (25.1-36.5) 08/09/17 10:00 - Constitutional Appears: No Acute Distress - Head Exam Head Exam: ATRAUMATIC, NORMAL INSPECTION, NORMOCEPHALIC - Eye Exam Eye Exam: EOMI, Normal appearance, PERRL - ENT Exam ENT Exam: Mucous Membranes Moist, Normal Exam - Respiratory Exam Respiratory Exam: Clear to Ausculation Bilateral, NORMAL BREATHING PATTERN - Cardiovascular Exam Cardiovascular Exam: REGULAR RHYTHM, +S1, +S2. absent: Murmur - GI/Abdominal Exam GI & Abdominal Exam: Soft, Normal Bowel Sounds. absent: Tenderness - Neurological Exam Neurological Exam: Alert, Awake, CN II-XII Intact, Normal Gait, Oriented x3 - Psychiatric Exam Psychiatric exam: Normal Affect, Normal Mood - Skin Skin Exam: Dry, Intact, Normal Color, Warm Assessment and Plan - Assessment and Plan (Free Text) Assessment: 52 year old male w/PMHx COPD, CAD with 4 stents, recently placed PPM, ESRD on HD MWF, IDDM2 and HTN that presented to [facility] [place] [facility] ED s/p mechanical fall with trauma to the head resulting in a subdural hematoma evidenced by CT Head along the falx cerebri, measuring up to 1 cm in maximum thickness with no midline shift. Patient received platelet and FFP transfusion for Brilinta reversal. Repeat CT head shows stable hematoma. Neurosurgery Dr. Frost consulted, no surgical intervention at this time. Dr. Erickson Cardiology consulted, appreciate reccs. Continue to monitor clinical status, neurochecks. CBC, CMP, blood coags. Continue with arasnep as per Nephrology, Dr. Malcolm. Hgb stable. Patient tolerated HD yesterday without incident. Patient's brilanta and Asa on hold 2/2 subdural hematoma - will continue to be held for at least 6 weeks as per neurology currently off for 4 weeks. Can restart aspirin 81mg daily. Restart brilanta as per Neurosurgery. OOB,PT/OT
--- NOTE | 2017-08-17 16:08 | PN ---
DATE: 08/17/2017 REASON FOR DICTATION: Addendum to the initial progress note dictated by our nurse practitioner, Karlie Moreau. REASON FOR ADDENDUM: I spoke to the surgeon because there was a confusion of restarting dual antiplatelet therapy, 2 weeks versus 6-8 weeks. Surgeon is suggesting 2 weeks, Neurology suggesting 8 weeks. So, I spoke to the surgeon. I asked Juhi, nurse practitioner to call the surgeon, who called and surgeon suggested that baby aspirin can be started tomorrow, Brilinta after 2 weeks, but at the same time, he also was very much concerned about restarting Brilinta as the patient can have bleed again if he falls, but since the patient is resistant to Plavix, he wanted to substitute with lesser powerful antiplatelet therapy, but since the patient is resistant to Plavix, this will not help. So, the plan is as follows: 1. We will start baby aspirin 81 mg tomorrow and after 2 weeks start Brilinta, that is next Monday, on 08/22/2017, if the patient remains stable and we will continue only for 3 months. After this, we will continue baby aspirin because the patient has neuropathy and high risk of recurrent fall again and history of fall at home also. As mentioned, we will start baby aspirin from tomorrow and Brilinta from 08/22/2017. We may close monitor and we will continue Brilinta and baby aspirin together for 3 months. After this, we will stop the Brilinta and continue baby aspirin alone because giving the Plavix will make false sense of security, but since the patient is resistant, may not give the protection to the stent. Thank you, Dr. Kessler, for providing us the opportunity in taking care of the patient, Jason Miramontes. Jarred Erickson MD cc: Diana Kessler MD
--- NOTE | 2017-08-17 17:35 | PN ---
DATE: 08/17/2017 SUBJECTIVE: The patient is seen, sitting in bed. He is awake, he is alert, and he is comfortable. PHYSICAL EXAMINATION: GENERAL: Middle-aged male, sitting in bed. VITAL SIGNS: Blood pressure 161/49, heart rate 67, respiratory rate 20, temperature 98.6. HEENT: Normocephalic, atraumatic, positive pallor. NECK: Supple, no JVD. LUNGS: Bilateral equal air entry, bilateral equal expansion. CARDIAC: S1 and S2, regular rate and rhythm, no murmur, no rub. ABDOMEN: Obese, distended, soft, nontender, bowel sounds present. EXTREMITIES: Chronic stasis changes. INTAKE AND OUTPUT: Not charted. LABORATORY DATA: Hemoglobin was 8.9 yesterday, platelets 76. Sodium 138, potassium 5.4, chloride 90, CO2 of 29. BUN 81, creatinine 11. Glucose 141. Calcium 9.5, phosphorus 8.4, magnesium 2.6. CT of the head: Left parasagittal interhemispheric subdural hematoma has decreased in size slightly. No new hemorrhages. CURRENT MEDICATIONS: Apresoline 20 b.i.d., Brovana, Claritin, Dilaudid, Drisdol, DuoNeb, Flomax, Lipitor, Lyrica, PhosLo, Prandin, prednisone 3 mg daily, Protonix, Pulmicort, Singulair, Synthroid, TriCor, tramadol, and Zofran. ASSESSMENT: 1. Status post intracranial hemorrhage secondary to fall, subdural hematoma, stable, slightly decreased. 2. Hyperglycemia. 3. Hypotension. 4. Recent drug-eluting stent in the left anterior descending, now off anticoagulation because of intracranial hemorrhage. 5. [id number] diabetes mellitus. 6. Hypertension. 7. Coronary artery disease. 8. End-stage renal disease. 9. Severe hyperphosphatemia. 10. Thrombocytopenia. PLAN: 1. Had Renagel 800 mg two tablets three times a day with meals along with calcium acetate. 2. Continue to hold anticoagulation as per Neurology recommendations. 3. Continue fingerstick monitoring and insulin coverage. 4. Stable dialysis yesterday. 5. Next dialysis tomorrow. 6. Discharge planning. Eva Malcolm MD [facility] # [id number]
[2017-08-17] MEDS: Insulin Human NPH 1 UNITS/0.01 ML SC SCH (17:42)
--- NOTE | 2017-08-17 19:24 | CP.PCM.PN ---
Addendum entered and electronically signed by Vimal Restrepo DO 08/17/17 19:28: Attending notified, Dr. Kessler Original Note: <Vimal Restrepo - Last Filed: 08/17/17 19:20> Subjective - Date & Time of Evaluation Date of Evaluation: 08/17/17 Time of Evaluation: 19:05 - Subjective Subjective: CODE STAR PROGRESS NOTE 52 year old male, code star called by nursing staff for fall. Patient was seen and evaluated. Patient was laying on floor, on back. Patient stated he was getting out of chair and walking when his foot slipped and fell denies hitting head. Patient denies any dizziness prior to fall, blacking out, or any aura. Denied any chest pain, SOB, palpitations prior to fall. Labs and vitals were reviewed. Objective - Vital Signs/Intake and Output Vital Signs (last 24 hours): Temp Pulse Resp BP Pulse Ox 98.1 F 68 18 156/54 H 99 08/17/17 17:58 08/17/17 17:58 08/17/17 17:58 08/17/17 17:58 08/17/17 05:55 Intake and Output: 08/17/17 08/18/17 18:59 06:59 Intake Total 480 Output Total 0 Balance 480 - Medications Medications: Current Medications Albuterol/Ipratropium (Duoneb 3 Mg/0.5 Mg (3 Ml) Ud) 3 ml IH [id number] PRN PRN Reason: Shortness of Breath Arformoterol Tartrate (Brovana) 15 mcg IH [id number] [facility] Last Admin: 08/17/17 07:30 Dose: 15 mcg Aspirin (Ecotrin) 81 mg PO DAILY [facility] Atorvastatin Calcium (Lipitor) 40 mg PO DIN [facility] Last Admin: 08/17/17 17:39 Dose: 40 mg Budesonide (Pulmicort Respules) 0.5 mg IH [id number] [facility] Last Admin: 08/17/17 07:32 Dose: 0.5 mg Calcium Acetate (Phoslo) 2,001 mg PO ACTID [facility] Last Admin: 08/17/17 17:39 Dose: 2,001 mg Ergocalciferol (Drisdol 50,000 Intl Units Cap) 1 cap PO WED [facility] Last Admin: 08/16/17 10:07 Dose: 1 cap Fenofibrate (Tricor) 145 mg PO DAILY [facility] Last Admin: 08/17/17 10:08 Dose: 145 mg Guaifenesin/Dextromethorphan (Robitussin Dm) 10 ml PO Q4H PRN PRN Reason: Cough Last Admin: 08/12/17 20:19 Dose: 10 ml Hydralazine HCl (Apresoline) 20 mg PO BID [facility] Last Admin: 08/17/17 17:40 Dose: 20 mg Insulin Human NPH (Humulin N) 70 units SC ACD [facility] Last Admin: 08/17/17 17:42 Dose: 70 units Insulin Human Regular (Humulin R Med) 0 units SC ACHS [facility] PRN Reason: Protocol Last Admin: 08/17/17 17:41 Dose: 8 units Levothyroxine Sodium (Synthroid) 25 mcg PO 0600 [facility] Last Admin: 08/17/17 05:30 Dose: 25 mcg Loratadine (Claritin) 10 mg PO DAILY [facility] Last Admin: 08/17/17 10:08 Dose: 10 mg Montelukast Sodium (Singulair) 10 mg PO HS [facility] Last Admin: 08/16/17 21:45 Dose: 10 mg Non-Formulary Medication (Multivitamin With Iron [Multivitamins With Iron]) 1 each PO DAILY [facility] Last Admin: 08/17/17 10:08 Dose: Not Given Non-Formulary Medication (Nateglinide [Starlix]) 1 tab PO HS [facility] Last Admin: 08/16/17 21:45 Dose: Not Given Ondansetron HCl (Zofran Inj) 4 mg IVP Q6H PRN PRN Reason: Nausea/Vomiting Pantoprazole Sodium (Protonix Ec Tab) 40 mg PO 0600 [facility] Last Admin: 08/17/17 05:30 Dose: 40 mg Prednisone (Prednisone Tab) 2 mg PO DAILY [facility] Pregabalin (Lyrica) 50 mg PO HS [facility] Last Admin: 08/16/17 21:45 Dose: 50 mg Repaglinide (Prandin) 2 mg PO AC [facility] Last Admin: 08/17/17 17:40 Dose: 2 mg Sevelamer HCl (Renagel) 1,600 mg PO TID [facility] Last Admin: 08/17/17 17:40 Dose: 1,600 mg Sodium Chloride ([place] Nasal [place]) 1 ml NS Q2H PRN PRN Reason: Nasal congestion Last Admin: 08/15/17 18:12 Dose: 1 dose Tamsulosin HCl (Flomax) 0.4 mg PO DAILY [facility] Last Admin: 08/17/17 10:07 Dose: 0.4 mg Tramadol HCl (Ultram) 50 mg PO TID PRN PRN Reason: Pain, moderate (4-7) Last Admin: 08/15/17 11:45 Dose: 50 mg - Labs Labs: 08/16/17 14:00 08/16/17 14:00 PT 17.7 SECONDS (9.4-12.5) H 08/14/17 06:15 INR 1.53 (0.93-1.08) H 08/14/17 06:15 APTT 29.7 Seconds (25.1-36.5) 08/09/17 10:00 - Constitutional Appears: Non-toxic, No Acute Distress - Head Exam Head Exam: ATRAUMATIC, NORMAL INSPECTION, NORMOCEPHALIC Additional comments: no bruising or hematoma - Eye Exam Eye Exam: EOMI, Normal appearance, PERRL - ENT Exam ENT Exam: Mucous Membranes Moist - Respiratory Exam Respiratory Exam: Clear to Ausculation Bilateral, NORMAL BREATHING PATTERN - Cardiovascular Exam Cardiovascular Exam: REGULAR RHYTHM, +S1, +S2 - GI/Abdominal Exam GI & Abdominal Exam: Soft. absent: Tenderness - Extremities Exam Extremities Exam: absent: Pedal Edema, Tenderness Additional comments: able to move both legs, no pain with movement - Back Exam Back Exam: NORMAL INSPECTION Additional comments: no bruising noted on back - Neurological Exam Neurological Exam: Alert, Awake, Oriented x3 Neuro motor strength exam: Left Upper Extremity: 5, Right Upper Extremity: 5, Left Lower Extremity: 5, Right Lower Extremity: 5 Assessment and Plan - Assessment and Plan (Free Text) Assessment: 52 year old male status post fall for which code star was called. Plan: Plan: -labs and vitals reviewed -CBC and CMP ordered -Head CT stat -PT, PTT, INR -telemetry monitoring -follow up labs <Anna Mancuso - Last Filed: 08/18/17 00:39> Objective - Vital Signs/Intake and Output Vital Signs (last 24 hours): Temp Pulse Resp BP Pulse Ox 98.1 F 75 18 156/54 H 99 08/17/17 17:58 08/17/17 22:00 08/17/17 17:58 08/17/17 17:58 08/17/17 05:55 Intake and Output: 08/17/17 08/18/17 18:59 06:59 Intake Total 480 Output Total 0 Balance 480 - Medications Medications: Current Medications Albuterol/Ipratropium (Duoneb 3 Mg/0.5 Mg (3 Ml) Ud) 3 ml IH [id number] PRN PRN Reason: Shortness of Breath Last Admin: 08/17/17 19:25 Dose: 3 ml Arformoterol Tartrate (Brovana) 15 mcg IH [id number] [facility] Last Admin: 08/17/17 19:25 Dose: 15 mcg Aspirin (Ecotrin) 81 mg PO DAILY [facility] Atorvastatin Calcium (Lipitor) 40 mg PO DIN [facility] Last Admin: 08/17/17 17:39 Dose: 40 mg Budesonide (Pulmicort Respules) 0.5 mg IH [id number] [facility] Last Admin: 08/17/17 19:25 Dose: 0.5 mg Calcium Acetate (Phoslo) 2,001 mg PO ACTID [facility] Last Admin: 08/17/17 17:39 Dose: 2,001 mg Ergocalciferol (Drisdol 50,000 Intl Units Cap) 1 cap PO WED [facility] Last Admin: 08/16/17 10:07 Dose: 1 cap Fenofibrate (Tricor) 145 mg PO DAILY [facility] Last Admin: 08/17/17 10:08 Dose: 145 mg Guaifenesin/Dextromethorphan (Robitussin Dm) 10 ml PO Q4H PRN PRN Reason: Cough Last Admin: 08/12/17 20:19 Dose: 10 ml Hydralazine HCl (Apresoline) 20 mg PO BID [facility] Last Admin: 08/17/17 17:40 Dose: 20 mg Insulin Human NPH (Humulin N) 70 units SC ACD [facility] Last Admin: 08/17/17 17:42 Dose: 70 units Insulin Human Regular (Humulin R Med) 0 units SC ACHS [facility] PRN Reason: Protocol Last Admin: 08/17/17 21:46 Dose: Not Given Levothyroxine Sodium (Synthroid) 25 mcg PO 0600 [facility] Last Admin: 08/17/17 05:30 Dose: 25 mcg Loratadine (Claritin) 10 mg PO DAILY [facility] Last Admin: 08/17/17 10:08 Dose: 10 mg Montelukast Sodium (Singulair) 10 mg PO HS [facility] Last Admin: 08/17/17 21:50 Dose: 10 mg Non-Formulary Medication (Multivitamin With Iron [Multivitamins With Iron]) 1 each PO DAILY [facility] Last Admin: 08/17/17 10:08 Dose: Not Given Non-Formulary Medication (Nateglinide [Starlix]) 1 tab PO HS [facility] Last Admin: 08/17/17 21:46 Dose: Not Given Ondansetron HCl (Zofran Inj) 4 mg IVP Q6H PRN PRN Reason: Nausea/Vomiting Pantoprazole Sodium (Protonix Ec Tab) 40 mg PO 0600 [facility] Last Admin: 08/17/17 05:30 Dose: 40 mg Prednisone (Prednisone Tab) 2 mg PO DAILY [facility] Pregabalin (Lyrica) 50 mg PO HS [facility] Last Admin: 08/17/17 21:50 Dose: 50 mg Repaglinide (Prandin) 2 mg PO AC [facility] Last Admin: 08/17/17 17:40 Dose: 2 mg Sevelamer HCl (Renagel) 1,600 mg PO TID [facility] Last Admin: 08/17/17 17:40 Dose: 1,600 mg Sodium Chloride ([place] Nasal [place]) 1 ml NS Q2H PRN PRN Reason: Nasal congestion Last Admin: 08/15/17 18:12 Dose: 1 dose Tamsulosin HCl (Flomax) 0.4 mg PO DAILY [facility] Last Admin: 08/17/17 10:07 Dose: 0.4 mg Tramadol HCl (Ultram) 50 mg PO TID PRN PRN Reason: Pain, moderate (4-7) Last Admin: 08/17/17 21:53 Dose: 50 mg - Labs Labs: 08/17/17 19:53 08/17/17 19:53 PT 17.7 SECONDS (9.4-12.5) H 08/17/17 19:53 INR 1.54 (0.93-1.08) H 08/17/17 19:53 APTT 31.7 Seconds (25.1-36.5) 08/17/17 19:53 Attending/Attestation - Attestation I have personally seen and examined this patient.: Yes I have fully participated in the care of the patient.: Yes I have reviewed all pertinent clinical information, including history, physical exam and plan: Yes Notes (Text): 08/18/17 00:29 Agree with documentation and plan Fall precaution ordered. 08/18/17 00:32
[2017-08-17] MEDS: Albuterol-Ipratrop 3 mg / 0.5 (3 ml) UD IH PRN (19:25)
[2017-08-17 19:56] LABS: BASO # 0.02 K/mm3 (0.0-2.0); BASO % 0.5 % (0.0-3.0); EOS % 0.9 % (1.5-5.0); GRAN # 2.7 (1.4-6.5); GRAN % 61.5 % (50.0-68.0); HEMOGLOBIN 9.3 g/dL (14.0-18.0); LYMPH # 1.2 (1.2-3.4); LYMPH % 27.3 % (22.0-35.0); MEAN CELL VOLUME 95.8 fl (80.0-105.0); MEAN CORPUSCULAR HEMOGLOBIN 29.8 pg (25.0-35.0); MEAN CORPUSCULAR HGB CONC 31.1 g/dl (31.0-37.0); MEAN PLATELET VOLUME 12.2 fl (7.0-11.0); MONO # 0.4 (0.1-0.6); MONO % 9.8 % (1.0-6.0); RBC 3.12 10^6/uL (3.5-6.1); RED CELL DISTRIBUTION WIDTH 17.6 % (11.5-14.5); WHITE BLOOD COUNT 4.4 10^3/ul (4.5-11.0)
[2017-08-17 20:06] LABS: INR 1.54 (0.93-1.08); PARTIAL THROMBOPLASTIN TIME 31.7 Seconds (25.1-36.5); PROTHROMBIN TIME 17.7 SECONDS (9.4-12.5)
[2017-08-17 20:23] LABS: ALB/GLOB RATIO 0.9 (1.1-1.8); CALCIUM 8.9 mg/dL (8.4-10.5)
--- NOTE | 2017-08-17 20:35 | CT ---
EXAM: CT Head Without Intravenous Contrast EXAM DATE/TIME: 08/17/2017 7:04 PM CLINICAL HISTORY: 52 years old, male; Injury or trauma; Fall; Initial encounter; Concussion / head injury TECHNIQUE: Axial computed tomography images of the head/brain without intravenous contrast. All CT scans at this facility use one or more dose reduction techniques, viz.: automated exposure control; ma/kV adjustment per patient size (including targeted exams where dose is matched to indication; i.e. head); or iterative reconstruction technique. Coronal and sagittal reformatted images were created and reviewed. COMPARISON: CT - HEAD W/O CONTRAST 2017-08-16, CT 08/09/17 FINDINGS: Brain: There is prominence of sulci gyri and ventricles. There is no midline shift. There is decreased attenuation in periventricular white matter. There are no focal masses. There is a resolving left parafalcine subdural hematoma unchanged since yesterday's study. There are no new hemorrhages. Shearer-white differentiation is visualized. Ventricles: See above Bones: Cranial vault is intact. Soft tissues: unremarkable Sinuses: There is no acute sinusitis. Ears and mastoids: Middle ears and mastoids are unremarkable. Orbits: There are no acute orbital abnormalities. IMPRESSION: Resolving left parafalcine subdural hematoma, no new intracranial hemorrhage; atrophy and small vessel disease
--- NOTE | 2017-08-17 21:13 | PN ---
DATE: 08/17/2017 PULMONARY PROGRESS NOTE REFERRING PHYSICIAN: Diana Kessler MD SUBJECTIVE: He is sitting side of the bed. Night was unremarkable. Tolerated CPAP well. Cough and shortness of breath better. Rule out abdominal pain. No diarrhea. Trace leg swelling. OBJECTIVE: GENERAL: In no acute distress. VITAL SIGNS: Temperature is 98, heart rate is 69, respiratory rate is 18, blood pressure 130/49, pulse ox 99% on room air. HEENT: Moist mucous membrane. Carotid airway. Mallampati score is 4. NECK: Supple. No JVD. LUNGS: Fair airflow with few rhonchi. HEART: S1 and S2. ABDOMEN: Soft and nontender. No organomegaly. EXTREMITIES: Trace edema. NEUROLOGIC: Awake and alert. Follows simple commands. MEDICATIONS: He is on hydralazine 20 mg twice a day, Brovana inhaled twice a day, Claritin 10 mg daily, vitamin D 50,000 units weekly, DuoNeb every 6 hours p.r.n., Ecotrin 81 mg daily, Flomax 0.4 mg daily, insulin coverage, Lipitor 40 mg daily, Lyrica 50 mg at bedtime, also on multivitamins with iron, Starlix which is not given, LoPhos with meals, Prandin 2 mg before meals, prednisone 3 mg daily, Protonix 40 mg daily, Pulmicort inhaled twice a day, Robitussin DM p.r.n., Singulair 10 mg daily, levothyroxine 25 mcg daily, TriCor 145 mg daily, Ultram 50 mg every 8 hours p.r.n., Zofran p.r.n. basis. LABORATORY DATA: Reviewed and noted blood sugar this morning was 372. Has a CAT scan of the head done yesterday shows redemonstration of the left parasagittal interhemispheric subdural hematoma which has decreased in size slightly. The hematoma has also decreased in density slightly as well. No new hemorrhage reported. IMPRESSION AND PLAN: Status post fall with cranial hematoma, severe peripheral vascular disease, nonhealing leg ulcer, chronic obstructive lung disease, obstructive sleep apnea syndrome, cardiac arrhythmia requiring pacemaker, pulmonary hypertension, diabetes, renal failure, dialysis dependent, has uncontrolled diabetes. We will decrease prednisone to 2 mg daily, taper off very slowly. Continue inhaled bronchodilators, CPAP while sleeping. Fall precautions. I had a long discussion with the patient about his increased chances of fall and he has to be careful when ambulating, use assist device. He expressed understanding. continue pain management because of his severe peripheral neuropathy which also increased the risk of fall. Thank you and we will follow with you. Jarred Escalera MD
[2017-08-17] MEDS: NATEGLINIDE PO SCH (21:46)
--- NOTE | 2017-08-17 23:13 | PN ---
DATE: 08/17/2017 SUBJECTIVE: Patient is [id number] male. Patient is seen and examined at the bedside, looking comfortable. No nausea, vomiting, diarrhea. No hematuria, hematochezia. No swelling of the leg, no chest pain, no palpitation, no headache, no dizziness. PHYSICAL EXAMINATION: VITAL SIGNS: Blood pressure 151/49, heart rate 67, respiratory rate is 20, temperature 98.6. HEENT: Head: Normocephalic, atraumatic. Eyes: PERRLA. Extraocular muscles intact. Conjunctivae clear. Nose: Patent. Mucous membrane moist. NECK: Supple. No carotid bruits. No JVD or thyromegaly. CHEST: Bilaterally symmetrical. HEART: S1 and S2 positive. LUNGS: Clear to auscultation. ABDOMEN: Soft. Bowel sounds positive. No organomegaly. EXTREMITIES: No edema. No cyanosis. NEUROLOGICAL: The patient is awake and alert. Moving all 4 extremities. No focal deficits. LABORATORY DATA: Hemoglobin 8.9, hematocrit noted , platelet 76. Sodium 138, potassium 5.4, BUN 81, creatinine 1.1, glucose 141. MEDICATIONS: Hydralazine, Brovana, Dilaudid, DuoNeb, Flomax, Lyrica, PhosLo, Prandin, prednisone, Protonix, Pulmicort, Singulair, Synthroid, TriCor, tramadol, and Zofran. ASSESSMENT AND PLAN: Mr. Jason Berger is a [id number] male status post intracranial hemorrhage secondary to a mechanical fall; subdural hematoma, stable; slightly decreasing actually; hypertension; insulin dependent diabetes mellitus; diabetic neuropathy; diabetic retinopathy; diabetic nephropathy; has recently drug-eluting stent in the left anterior descending and now off anticoagulation because of an intracranial hemorrhage, awaiting ,openions of neuro and cardio to restart those blood thinners whenever it is appropriate; severe hyperphosphatemia; thrombocytopenia; had Renagel 800 mg two tables three times a day with meals along with calcium acetate. Continue holding anticoagulation from Neurology and Cardiology recommendation. Continue fingerstick monitoring, out of bed, physical therapy. Stable for dialysis as per Logistics Planning Manager. Seen by Dr. Erickson and Dr. Malcolm and Dr. Escalera. Dr. Erickson actually spoke to the surgeon and according to them, aspirin can be started tomorrow, Brilinta after two weeks, but at the same time, he also has been very much concern about restarting Brilinta as the patient can have bleed again if he falls, but since the patient is resistant to Plavix, he wanted two substitute with lesser powerful antiplatelet therapy, but since the patient is resistant to Plavix, they will not help, so the plan is as follows: As per Dr. Erickson, start aspirin 81 mg tomorrow and after 2 weeks, start Brilinta that is next Monday on 08/22. If the patient remains stable, then we will continue only for three months. After this, we will continue baby aspirin because the patient has neuropathy and high risk of recurrent fall again and history of fall at home also. We will continue present treatment, will be planned. Diana Kessler MD [email or web address]
[2017-08-18] MEDS: Pantoprazole 40 mg EC Tab PO SCH (05:02)
[2017-08-18] MEDS: Levothyroxine 25 MCG TAB PO SCH (05:02)
[2017-08-18] MEDS: Budesonide 0.5 mg/2 ml Inhal Susp UD IH SCH ×3 (07:18→21:15)
[2017-08-18] MEDS: Arformoterol 15 mcg/2 ml Inh Sol IH SCH ×3 (07:18→21:15)
--- NOTE | 2017-08-18 07:49 | CP.PCM.PN ---
Subjective - Date & Time of Evaluation Date of Evaluation: 08/18/17 Time of Evaluation: 06:25 - Subjective Subjective: Awake, no distress, claimed that fell yesterday landed on buttocks Reason for consultation and follow up: Cardiac evaluation post fall,coronary artery disease post stents on Brilinta and Aspirin. (Patient resistant to Plavix ) PPM for symptomatic bradycardia, COPD,ESRD on hemodialysis (MWF),hypertension , hyperlipidemia, obesity, diabetes mellitus, hyperlipidemia, diabetic neuropathy,diabetic retinopathy Seen and examined by me and Dr. Erickson Objective - Vital Signs/Intake and Output Vital Signs (last 24 hours): Temp Pulse Resp BP Pulse Ox 98.3 F 89 20 118/80 98 08/18/17 06:00 08/18/17 06:00 08/18/17 06:00 08/18/17 06:00 08/18/17 06:00 Intake and Output: 08/18/17 08/18/17 06:59 18:59 Intake Total 120 Balance 120 - Medications Medications: Current Medications Albuterol/Ipratropium (Duoneb 3 Mg/0.5 Mg (3 Ml) Ud) 3 ml IH [id number] PRN PRN Reason: Shortness of Breath Last Admin: 08/17/17 19:25 Dose: 3 ml Arformoterol Tartrate (Brovana) 15 mcg IH [id number] [facility] Last Admin: 08/18/17 07:18 Dose: 15 mcg Aspirin (Ecotrin) 81 mg PO DAILY [facility] Atorvastatin Calcium (Lipitor) 40 mg PO DIN [facility] Last Admin: 08/17/17 17:39 Dose: 40 mg Budesonide (Pulmicort Respules) 0.5 mg IH [id number] [facility] Last Admin: 08/18/17 07:18 Dose: 0.5 mg Calcium Acetate (Phoslo) 2,001 mg PO ACTID [facility] Last Admin: 08/17/17 17:39 Dose: 2,001 mg Ergocalciferol (Drisdol 50,000 Intl Units Cap) 1 cap PO WED [facility] Last Admin: 08/16/17 10:07 Dose: 1 cap Fenofibrate (Tricor) 145 mg PO DAILY [facility] Last Admin: 08/17/17 10:08 Dose: 145 mg Guaifenesin/Dextromethorphan (Robitussin Dm) 10 ml PO Q4H PRN PRN Reason: Cough Last Admin: 08/12/17 20:19 Dose: 10 ml Hydralazine HCl (Apresoline) 20 mg PO BID [facility] Last Admin: 08/17/17 17:40 Dose: 20 mg Insulin Human NPH (Humulin N) 70 units SC ACD [facility] Last Admin: 08/17/17 17:42 Dose: 70 units Insulin Human Regular (Humulin R Med) 0 units SC ACHS [facility] PRN Reason: Protocol Last Admin: 08/17/17 21:46 Dose: Not Given Levothyroxine Sodium (Synthroid) 25 mcg PO 0600 [facility] Last Admin: 08/18/17 05:02 Dose: 25 mcg Loratadine (Claritin) 10 mg PO DAILY [facility] Last Admin: 08/17/17 10:08 Dose: 10 mg Montelukast Sodium (Singulair) 10 mg PO HS [facility] Last Admin: 08/17/17 21:50 Dose: 10 mg Non-Formulary Medication (Multivitamin With Iron [Multivitamins With Iron]) 1 each PO DAILY [facility] Last Admin: 08/17/17 10:08 Dose: Not Given Non-Formulary Medication (Nateglinide [Starlix]) 1 tab PO [facility] Last Admin: 08/17/17 21:46 Dose: Not Given Ondansetron HCl (Zofran Inj) 4 mg IVP Q6H PRN PRN Reason: Nausea/Vomiting Pantoprazole Sodium (Protonix Ec Tab) 40 mg PO 0600 [facility] Last Admin: 08/18/17 05:02 Dose: 40 mg Prednisone (Prednisone Tab) 2 mg PO DAILY [facility] Pregabalin (Lyrica) 50 mg PO HS [facility] Last Admin: 08/17/17 21:50 Dose: 50 mg Repaglinide (Prandin) 2 mg PO AC [facility] Last Admin: 08/17/17 17:40 Dose: 2 mg Sevelamer HCl (Renagel) 1,600 mg PO TID [facility] Last Admin: 08/17/17 17:40 Dose: 1,600 mg Sodium Chloride ([place] Nasal [place]) 1 ml NS Q2H PRN PRN Reason: Nasal congestion Last Admin: 08/15/17 18:12 Dose: 1 dose Tamsulosin HCl (Flomax) 0.4 mg PO DAILY [facility] Last Admin: 08/17/17 10:07 Dose: 0.4 mg Tramadol HCl (Ultram) 50 mg PO TID PRN PRN Reason: Pain, moderate (4-7) Last Admin: 08/18/17 05:02 Dose: 50 mg - Labs Labs: 08/17/17 19:53 08/17/17 19:53 PT 17.7 SECONDS (9.4-12.5) H 08/17/17 19:53 INR 1.54 (0.93-1.08) H 08/17/17 19:53 APTT 31.7 Seconds (25.1-36.5) 08/17/17 19:53 - Constitutional Appears: No Acute Distress - Head Exam Head Exam: NORMOCEPHALIC - ENT Exam ENT Exam: Mucous Membranes Moist - Respiratory Exam Respiratory Exam: Decreased Breath Sounds, NORMAL BREATHING PATTERN - Cardiovascular Exam Cardiovascular Exam: +S1, +S2 Additional comments: PPM,AV pacing AV shunt PICC - GI/Abdominal Exam GI & Abdominal Exam: Distended, Soft, Normal Bowel Sounds - Exam Additional comments: Hemodialysis 3x a week - Extremities Exam Extremities Exam: Normal Capillary Refill - Neurological Exam Neurological Exam: Alert, Awake, Oriented x3 - Psychiatric Exam Psychiatric exam: Normal Affect, Normal Mood - Skin Skin Exam: Intact, Normal Color, Warm Assessment and Plan - Assessment and Plan (Free Text) Assessment: A 52 year old male who came in to the ER due to fall at dialysis center.He missed his dialysis Monday and came in Monday. While weighing the patient standing his legs gave way and fell. He has been falling frequently over the last 1-2 weeks, and has fallen x 2 episodes 2 days ago. History of coronary artery disease post stents x 2 06/12/17,on Brilinta and Aspirin. (Patient resistant to Plavix) PPM for symptomatic bradycardia 06/27/17, COPD,ESRD on hemodialysis (MWF),hypertension, hyperlipidemia, obesity, diabetes mellitus, hyperlipidemia, diabetic neuropathy,diabetic retinopathy Patient known to service. He was just discharged from TCU 07/11/17. CT of head showed subdural hematoma. Admitted to ICU,stabilized then transferred to telemetry. Plan: Supposedly being transferred to Medical floor yesterday when during transfer to patient fell and landed on buttocks Code star was called Patient claimed knee gave up and unable to hold on to bed side rail CT of head negative for bleeding Hold transfer to medical floor Keep in Telemetry till the weekend Fall precaution Started on ASA 81 mg daily Start Brilinta on Monday08/22/17 for 3 months Concern cardiac stent thrombosis/occluding Stable blood pressure Continue current medications Continue current treatment Will follow up Plan and treatment discussed with Dr. Erickson
[2017-08-18] MEDS: Insulin Reg-MEDIUM-Coverage SC SCH ×4 (08:24→21:34)
[2017-08-18] MEDS: MULTIVITAMIN WITH IRON PO SCH (10:50)
[2017-08-18 11:38] LABS: BASO # 0.02 K/mm3 (0.0-2.0); BASO % 0.4 % (0.0-3.0); EOS # 0.1 (0.0-0.7); EOS % 1.5 % (1.5-5.0); GRAN # 3.16 (1.4-6.5); GRAN % 60.2 % (50.0-68.0); HEMOGLOBIN 9.1 g/dL (14.0-18.0); LYMPH # 1.4 (1.2-3.4); MEAN CELL VOLUME 94.4 fl (80.0-105.0); MEAN CORPUSCULAR HEMOGLOBIN 30.1 pg (25.0-35.0); MEAN CORPUSCULAR HGB CONC 31.9 g/dl (31.0-37.0); MEAN PLATELET VOLUME 13.2 fl (7.0-11.0); MONO # 0.6 (0.1-0.6); MONO % 10.9 % (1.0-6.0); RBC 3.02 10^6/uL (3.5-6.1); RED CELL DISTRIBUTION WIDTH 17.5 % (11.5-14.5); WHITE BLOOD COUNT 5.3 10^3/ul (4.5-11.0)
[2017-08-18 11:51] LABS: ALBUMIN 3.9 g/dL (3.0-4.8); CALCIUM 9.3 mg/dL (8.4-10.5)
--- NOTE | 2017-08-18 15:07 | CP.PCM.PN ---
Subjective - Date & Time of Evaluation Date of Evaluation: 08/18/17 Time of Evaluation: 07:00 - Subjective Subjective: Heme Once Progress Note for Dr Patricia Patient was seen and examined at bedside. No acute complaints at this time. As per nursing staff, pt had complaints of leg pain that were alleviated with ordered meds. Patient otherwise has no complaints. patient is tolerating po intake is moving bowels and bladder regularly. pt denied fever, chills, shortness of breath, chest pains, abdominal pains, nausea, vomiting, diarrhea, constipation, or dysuria. Objective - Vital Signs/Intake and Output Vital Signs (last 24 hours): Temp Pulse Resp BP Pulse Ox 98.3 F 89 20 118/80 98 08/18/17 06:00 08/18/17 06:00 08/18/17 06:00 08/18/17 06:00 08/18/17 06:00 Intake and Output: 08/18/17 08/18/17 06:59 18:59 Intake Total 120 Balance 120 - Medications Medications: Current Medications Albuterol/Ipratropium (Duoneb 3 Mg/0.5 Mg (3 Ml) Ud) 3 ml IH [id number] PRN PRN Reason: Shortness of Breath Last Admin: 08/17/17 19:25 Dose: 3 ml Arformoterol Tartrate (Brovana) 15 mcg IH [id number] [facility] Last Admin: 08/18/17 07:18 Dose: 15 mcg Aspirin (Ecotrin) 81 mg PO DAILY [facility] Atorvastatin Calcium (Lipitor) 40 mg PO DIN [facility] Last Admin: 08/17/17 17:39 Dose: 40 mg Budesonide (Pulmicort Respules) 0.5 mg IH [id number] [facility] Last Admin: 08/18/17 07:18 Dose: 0.5 mg Calcium Acetate (Phoslo) 2,001 mg PO ACTID [facility] Last Admin: 08/18/17 08:33 Dose: 2,001 mg Ergocalciferol (Drisdol 50,000 Intl Units Cap) 1 cap PO WED [facility] Last Admin: 08/16/17 10:07 Dose: 1 cap Fenofibrate (Tricor) 145 mg PO DAILY [facility] Last Admin: 08/17/17 10:08 Dose: 145 mg Guaifenesin/Dextromethorphan (Robitussin Dm) 10 ml PO Q4H PRN PRN Reason: Cough Last Admin: 08/12/17 20:19 Dose: 10 ml Hydralazine HCl (Apresoline) 20 mg PO BID [facility] Last Admin: 08/17/17 17:40 Dose: 20 mg Insulin Human NPH (Humulin N) 70 units SC ACD [facility] Last Admin: 08/17/17 17:42 Dose: 70 units Insulin Human Regular (Humulin R Med) 0 units SC ACHS [facility] PRN Reason: Protocol Last Admin: 08/18/17 08:24 Dose: Not Given Levothyroxine Sodium (Synthroid) 25 mcg PO 0600 [facility] Last Admin: 08/18/17 05:02 Dose: 25 mcg Loratadine (Claritin) 10 mg PO DAILY [facility] Last Admin: 08/17/17 10:08 Dose: 10 mg Montelukast Sodium (Singulair) 10 mg PO HS [facility] Last Admin: 08/17/17 21:50 Dose: 10 mg Non-Formulary Medication (Multivitamin With Iron [Multivitamins With Iron]) 1 each PO DAILY [facility] Last Admin: 08/17/17 10:08 Dose: Not Given Non-Formulary Medication (Nateglinide [Starlix]) 1 tab PO [facility] Last Admin: 08/17/17 21:46 Dose: Not Given Ondansetron HCl (Zofran Inj) 4 mg IVP Q6H PRN PRN Reason: Nausea/Vomiting Pantoprazole Sodium (Protonix Ec Tab) 40 mg PO 0600 [facility] Last Admin: 08/18/17 05:02 Dose: 40 mg Prednisone (Prednisone Tab) 2 mg PO DAILY [facility] Pregabalin (Lyrica) 50 mg PO HS [facility] Last Admin: 08/17/17 21:50 Dose: 50 mg Repaglinide (Prandin) 2 mg PO AC [facility] Last Admin: 08/18/17 08:33 Dose: 2 mg Sevelamer HCl (Renagel) 1,600 mg PO TID [facility] Last Admin: 08/17/17 17:40 Dose: 1,600 mg Sodium Chloride ([place] Nasal [place]) 1 ml NS Q2H PRN PRN Reason: Nasal congestion Last Admin: 08/15/17 18:12 Dose: 1 dose Tamsulosin HCl (Flomax) 0.4 mg PO DAILY [facility] Last Admin: 08/17/17 10:07 Dose: 0.4 mg Tramadol HCl (Ultram) 50 mg PO TID PRN PRN Reason: Pain, moderate (4-7) Last Admin: 08/18/17 05:02 Dose: 50 mg - Labs Labs: 08/18/17 11:20 08/18/17 11:20 PT 17.7 SECONDS (9.4-12.5) H 08/17/17 19:53 INR 1.54 (0.93-1.08) H 08/17/17 19:53 APTT 31.7 Seconds (25.1-36.5) 08/17/17 19:53 - Constitutional Appears: Well, No Acute Distress - Head Exam Head Exam: ATRAUMATIC, NORMAL INSPECTION, NORMOCEPHALIC - Eye Exam Eye Exam: EOMI, Normal appearance, PERRL Pupil Exam: NORMAL ACCOMODATION, PERRL - ENT Exam ENT Exam: Mucous Membranes Moist, Normal Exam - Respiratory Exam Respiratory Exam: Clear to Ausculation Bilateral, NORMAL BREATHING PATTERN - Cardiovascular Exam Cardiovascular Exam: REGULAR RHYTHM, +S1, +S2. absent: Murmur - GI/Abdominal Exam GI & Abdominal Exam: Soft, Normal Bowel Sounds. absent: Tenderness - Neurological Exam Neurological Exam: Alert, Awake, CN II-XII Intact, Normal Gait, Oriented x3 - Psychiatric Exam Psychiatric exam: Normal Affect, Normal Mood - Skin Skin Exam: Dry, Intact, Normal Color, Warm Assessment and Plan - Assessment and Plan (Free Text) Assessment: 52 year old male w/PMHx COPD, CAD with 4 stents, recently placed PPM, ESRD on HD MWF, IDDM2 and HTN that presented to [facility] ED s/p mechanical fall with trauma to the head resulting in a subdural hematoma evidenced by CT Head along the falx cerebri, measuring up to 1 cm in maximum thickness with no midline shift. Patient received platelet and FFP transfusion for Brilinta reversal. Repeat CT head shows stable hematoma. Neurosurgery Dr. Frost consulted, no surgical intervention at this time. Dr. Erickson Cardiology consulted, appreciate reccs. Continue to monitor clinical status, neurochecks. CBC, CMP, blood coags. Continue with arasnep as per Nephrology, Dr. Malcolm. Hgb stable. Patient tolerated HD yesterday without incident. Patient's brilanta and Asa on hold 2/2 subdural hematoma - will continue to be held for at least 6 weeks as per neurology currently off for 4 weeks. Can restart aspirin 81mg daily. Restart brilanta as per Neurosurgery. OOB,PT/OT
[2017-08-18] MEDS: Insulin Human NPH 1 UNITS/0.01 ML SC SCH (17:16)
--- NOTE | 2017-08-18 21:07 | PN ---
DATE: 08/18/2017 PULMONARY PROGRESS NOTE REFERRING PHYSICIAN: Dr. Kessler. SUBJECTIVE: Lying in the bed. Night was unremarkable, feels okay on an effusing CPAP. No nausea. No vomiting. No diarrhea. No leg swelling. Does have a leg pain though. OBJECTIVE: GENERAL: In no acute distress. VITAL SIGNS: Temperature is 98, heart rate is 89, respiratory rate is 20, blood pressure 118/80, pulse ox 98% on room air. HEENT: Moist mucous membrane. Crowded airway. Mallampati score is 4. NECK: Supple. No JVD. LUNGS: Fair airflow with a few rhonchi. HEART: S1 and S2. ABDOMEN: Soft and nontender. No organomegaly. EXTREMITIES: He does have some tenderness, trace edema. NEUROLOGIC: Awake and alert. Follows simple commands. MEDICATIONS: He is on hydralazine 20 mg twice a day, Brovana inhaled twice a day, Claritin 10 mg daily, vitamin D 50,000 units weekly, DuoNeb every 6 hours p.r.n., Ecotrin 81 mg daily, Flomax 0.4 mg daily, insulin coverage, Lipitor is 40 mg daily, Lyrica 50 mg at bedtime, multivitamin once daily, Starlix one tablet at bedtime, nasal saline once in each nostril every 12 hour p.r.n., PhosLo with meals, Prandin 2 mg before meals, prednisone 2 mg daily, Protonix 40 mg daily, Pulmicort inhaled twice a day, Robitussin every 4 hour p.r.n., Singulair 10 mg daily, Synthroid 25 mcg daily, TriCor 145 mg daily, Ultram 50 mg three times a day p.r.n., Zofran p.r.n. basis. LABORATORY DATA: Hemoglobin 9.1, hematocrit 28.5, WBC 5.3, platelet count is 84. Sodium 139, potassium 5.1, chloride 93, bicarbonate 29, BUN 75, creatinine 9.5, glucose 135, calcium is 9.3. AST 78, ALT 38, alk phos is 61, albumin is 3.9. Has a CAT scan of the head done yesterday shows resolved left parafalcine subdural hematoma. No new intracranial hemorrhage. Atrophy of small vessel disease. IMPRESSION AND PLAN: Status post fall with a cranial hematoma, severe peripheral vascular disease, nonhealing leg ulcer, chronic obstructive lung disease, obstructive sleep apnea syndrome, cardiac arrhythmia requiring pacemaker, pulmonary hypertension, diabetes, renal failure, dialysis dependent. Pulmonary point of view, he is doing much better. Continue BUN inhaled bronchodilator twice a day, steroids. Encourage CPAP use, bronchodilator. High risk for a fall. Long discussion with the patient about increased chances of fall. He expressed understanding. Need to use precaution and use help available. Also, noted his Lyrica had been discontinued, still fall precaution, may benefit from therapy. Thank you and we will follow with you. Jarred Escalera MD
[2017-08-18] MEDS: NATEGLINIDE PO SCH (21:39)
--- NOTE | 2017-08-18 21:41 | PN ---
DATE: 08/18/2017 SUBJECTIVE: The patient is seen in the dialysis unit. He is awake, he is alert. He denies any headaches. He denies any chest pain. He denies any palpitations. PHYSICAL EXAMINATION: GENERAL: Middle-aged male lying in bed in the dialysis unit. VITAL SIGNS: Blood pressure 118/80, heart rate 89, respiratory rate 20, temperature 98.3. HEENT: Normocephalic, atraumatic, positive pallor. NECK: Supple, no JVD. LUNGS: Bilateral equal air entry, bilateral equal expansion, no rales. CARDIAC: S1 and S2, regular rate and rhythm, no murmur, no rub. ABDOMEN: Obese, distended, soft, nontender, bowel sounds present. EXTREMITIES: No lower extremity edema. LABORATORY DATA: WBC 5, hemoglobin 9, hematocrit 28.5, platelets 84. Sodium 139, potassium 5.1, chloride 93, CO2 of 29, BUN 75, creatinine 9.5, glucose 135, calcium 9.3, phosphorus 5.3, magnesium 2.5. CT of the head, no change. CURRENT MEDICATIONS: Apresoline, Brovana, Claritin, Drisdol, DuoNeb, Ecotrin, Flomax, insulin, Lipitor, Lyrica, PhosLo, Prandin, prednisone, Protonix, Renagel, guaifenesin, and Singulair. ASSESSMENT: 1. Status post fall last night. 2. Status post fall at home, sustaining a subdural hematoma. 3. Autonomic dysfunction? 4. Xmu-raddizh-kcvcpmhta diabetes mellitus. 5. Hypertension. 6. Coronary artery disease, recent drug-eluting stent. 7. End-stage renal disease. 8. Severe hyperphosphatemia. 9. Anemia. PLAN: 1. Unclear how the patient fell yesterday, no documented orthostatic hypotension. 2. CT is unchanged. 3. To start aspirin today. 4. Stable dialysis. 5. Physical therapy and gait training. Eva Malcolm MD
[2017-08-19] MEDS ORDERED: Dextrose 50% SYRINGE Inj (50 ml) ONE (04:58)
[2017-08-19] MEDS ORDERED: Dextrose 50% SYRINGE Inj (50 ml) IVP ONE (04:59)
[2017-08-19] MEDS: Pantoprazole 40 mg EC Tab PO SCH (05:21)
[2017-08-19] MEDS: Levothyroxine 25 MCG TAB PO SCH (05:21)
[2017-08-19] MEDS: Insulin Reg-MEDIUM-Coverage SC SCH ×4 (08:01→22:59)
[2017-08-19] MEDS: Budesonide 0.5 mg/2 ml Inhal Susp UD IH SCH ×3 (08:20→19:02)
[2017-08-19] MEDS: Arformoterol 15 mcg/2 ml Inh Sol IH SCH ×3 (08:20→19:02)
[2017-08-19] MEDS: MULTIVITAMIN WITH IRON PO SCH (10:08)
[2017-08-19] MEDS: Albuterol-Ipratrop 3 mg / 0.5 (3 ml) UD IH PRN ×2 (13:51→18:48)
--- NOTE | 2017-08-19 16:54 | PN ---
DATE: 08/19/2017 SUBJECTIVE: The patient is a [id number] male. The patient is seen and examined at the bedside, looking comfortable. No nausea, vomiting, diarrhea. No hematuria or hematochezia. No swelling of the leg. No chest pain. No palpitations. No headaches or dizziness. Getting physical therapy. Aspirin started. No fever. No chills. PHYSICAL EXAMINATION: VITAL SIGNS: Temperature is 98.6, pulse 67, blood pressure 154/62, respiratory rate 18. HEENT: Head: Normocephalic, atraumatic. Eyes: PERRLA. Extraocular muscles intact. Conjunctivae clear. Nose patent. Mucous membranes moist. NECK: Supple. No carotid bruits. No JVD or thyromegaly. CHEST: Bilaterally symmetrical. HEART: S1 and S2 positive. LUNGS: Clear to auscultation. ABDOMEN: Soft. Bowel sounds positive. No organomegaly. EXTREMITIES: No edema. No cyanosis. NEUROLOGICAL: The patient is awake and alert. Moving all 4 extremities. No focal deficits. MEDICATIONS: Hydralazine, Brovana, Claritin, vitamin D, Ecotrin, Flomax, Lipitor, Lyrica. LABORATORY DATA: White blood cell 5.3, hemoglobin 9.1, hematocrit 28.5, platelets 84. Glucose 211, 97, 193. ASSESSMENT AND PLAN: Mr. Jason Berger, 52 years old male with multiple medical problems, renal insufficiency on hemodialysis, diabetic retinopathy, diabetic neuropathy, status post fall with cranial hematoma, severe peripheral vascular disease, nonhealing leg ulcer, chronic obstructive lung disease, obstructive sleep apnea syndrome, cardiac arrhythmia requiring a pacemaker, pulmonary hypertension, starting inhaled bronchodilator twice a day, feeling better, discontinued telemetry, gastrointestinal and deep vein thrombosis prophylaxis. Appreciative pr specialist, neurologist, transportation worker's input. Discussion done with the patient and patient's family. We will follow up. Diana Kessler MD
[2017-08-19] MEDS: Insulin Human NPH 1 UNITS/0.01 ML SC SCH (17:26)
--- NOTE | 2017-08-19 17:50 | PN ---
DATE: 08/19/2017 PULMONARY PROGRESS NOTE REFERRING PHYSICIAN: Diana Kessler MD. SUBJECTIVE: He is sitting on recliner chair. Night was unremarkable. Tolerated CPAP well. No headache. No rhinitis. No nausea. No vomiting, diarrhea, leg pain, leg swelling. Still unsteady on his feet. OBJECTIVE: GENERAL: In no acute distress. VITAL SIGNS: Temperature is 98, heart rate is 78, respiratory rate is 20, blood pressure 112/44, pulse ox 98% on room air. HEENT: Moist mucous membrane. Crowded airway. Mallampati score is 4. NECK: Supple. No JVD. LUNGS: Have a few scattered rhonchi. Overall fair airflow. HEART: S1 and S2. ABDOMEN: Soft, nontender. No organomegaly. EXTREMITIES: Trace edema. NEUROLOGICAL: Awake and alert. Follows simple command. LABORATORY DATA: Reviewed. Blood sugar this afternoon was 230. MEDICATIONS: He is on hydralazine 20 mg twice a day, Brovana inhaled twice a day, Claritin 10 mg daily, vitamin D 50,000 units weekly, DuoNeb every 6 hours p.r.n., Ecotrin 81 mg daily, Flomax 0.4 mg daily, insulin coverage, Lipitor 40 mg daily, Lyrica 50 mg at bedtime, multivitamin with iron one tab daily, Starlix one tab at bedtime, nasal saline every 2 hours p.r.n., Prandin 2 mg before meals, prednisone 2 mg daily, Protonix 40 mg daily, Pulmicort inhaled twice a day, Renagel 600 mg three times a day, Robitussin DM 10 mL every 4 hours p.r.n., Singulair 10 mg daily, Synthroid 25 mcg daily, TriCor 145 mg daily, Ultram 50 mg three times a day, Zofran p.r.n. basis. IMPRESSION AND PLAN: Status post fall with a cranial hematoma, severe peripheral vascular disease, nonhealing leg ulcers, chronic obstructive lung disease, obstructive sleep apnea syndrome, cardiac arrhythmia requiring pacemaker, pulmonary hypertension, diabetes, renal failure, dialysis dependent, activities of daily living dysfunction, still unsteady on the feet with severe peripheral neuropathy. We will discontinue prednisone. Watch for low blood sugar. May decrease Prandin to 1 mg before meals. Encourage CPAP use, inhaled bronchodilator. Will benefit from therapy. Thank you and we will follow with you. Jarred Escalera MD
[2017-08-19] MEDS: NATEGLINIDE PO SCH (22:57)
[2017-08-20] MEDS: Pantoprazole 40 mg EC Tab PO SCH (05:35)
[2017-08-20] MEDS: Levothyroxine 25 MCG TAB PO SCH (05:35)
[2017-08-20] MEDS: Arformoterol 15 mcg/2 ml Inh Sol IH SCH ×2 (07:22→19:37)
[2017-08-20] MEDS: Budesonide 0.5 mg/2 ml Inhal Susp UD IH SCH ×2 (07:22→19:37)
[2017-08-20] MEDS: Albuterol-Ipratrop 3 mg / 0.5 (3 ml) UD IH PRN ×2 (07:22→12:46)
[2017-08-20] MEDS: MULTIVITAMIN WITH IRON PO SCH (09:30)
[2017-08-20] MEDS: Insulin Reg-MEDIUM-Coverage SC SCH ×4 (09:30→22:07)
--- NOTE | 2017-08-20 10:45 | CP.PCM.PN ---
Subjective - Date & Time of Evaluation Date of Evaluation: 08/20/17 Time of Evaluation: 09:50 - Subjective Subjective: no complaints, NAD Objective - Vital Signs/Intake and Output Vital Signs (last 24 hours): Temp Pulse Resp BP Pulse Ox 98.4 F 64 20 134/62 99 08/20/17 07:43 08/20/17 07:43 08/20/17 07:43 08/20/17 09:28 08/20/17 07:43 Intake and Output: 08/20/17 08/20/17 06:59 18:59 Intake Total 780 Output Total 100 Balance 680 - Medications Medications: Current Medications Albuterol/Ipratropium (Duoneb 3 Mg/0.5 Mg (3 Ml) Ud) 3 ml IH [id number] PRN PRN Reason: Shortness of Breath Last Admin: 08/20/17 07:22 Dose: 3 ml Arformoterol Tartrate (Brovana) 15 mcg IH [id number] [facility] Last Admin: 08/20/17 07:22 Dose: 15 mcg Aspirin (Ecotrin) 81 mg PO DAILY [facility] Last Admin: 08/20/17 09:28 Dose: 81 mg Atorvastatin Calcium (Lipitor) 40 mg PO DIN [facility] Last Admin: 08/19/17 17:27 Dose: 40 mg Budesonide (Pulmicort Respules) 0.5 mg IH [id number] [facility] Last Admin: 08/20/17 07:22 Dose: 0.5 mg Calcium Acetate (Phoslo) 2,001 mg PO ACTID [facility] Last Admin: 08/20/17 09:27 Dose: 2,001 mg Ergocalciferol (Drisdol 50,000 Intl Units Cap) 1 cap PO WED [facility] Last Admin: 08/16/17 10:07 Dose: 1 cap Fenofibrate (Tricor) 145 mg PO DAILY [facility] Last Admin: 08/20/17 09:31 Dose: 145 mg Guaifenesin/Dextromethorphan (Robitussin Dm) 10 ml PO Q4H PRN PRN Reason: Cough Last Admin: 08/12/17 20:19 Dose: 10 ml Hydralazine HCl (Apresoline) 20 mg PO BID [facility] Last Admin: 08/20/17 09:28 Dose: 20 mg Insulin Human NPH (Humulin N) 70 units SC ACD [facility] Last Admin: 08/19/17 17:26 Dose: 70 units Insulin Human Regular (Humulin R Med) 0 units SC [facility] PRN Reason: Protocol Last Admin: 08/20/17 09:30 Dose: Not Given Levothyroxine Sodium (Synthroid) 25 mcg PO 0600 [facility] Last Admin: 08/20/17 05:35 Dose: 25 mcg Loratadine (Claritin) 10 mg PO DAILY [facility] Last Admin: 08/20/17 09:30 Dose: 10 mg Montelukast Sodium (Singulair) [address] [facility] Last Admin: 08/19/17 22:59 Dose: 10 mg Non-Formulary Medication (Multivitamin With Iron [Multivitamins With Iron]) 1 each PO DAILY [facility] Last Admin: 08/20/17 09:30 Dose: Not Given Non-Formulary Medication (Nateglinide [Starlix]) [address] [facility] Last Admin: 08/19/17 22:57 Dose: Not Given Ondansetron HCl (Zofran Inj) 4 mg IVP Q6H PRN PRN Reason: Nausea/Vomiting Pantoprazole Sodium (Protonix Ec Tab) 40 mg PO 0600 [facility] Last Admin: 08/20/17 05:35 Dose: 40 mg Pregabalin (Lyrica) [address] [facility] Last Admin: 08/19/17 22:56 Dose: 50 mg Repaglinide (Prandin) 1 mg PO [facility] Last Admin: 08/20/17 09:29 Dose: Not Given Sevelamer HCl (Renagel) 1,600 mg PO TID [facility] Sodium Chloride ([place] Nasal [place]) 1 ml NS Q2H PRN PRN Reason: Nasal congestion Last Admin: 08/15/17 18:12 Dose: 1 dose Tamsulosin HCl (Flomax) 0.4 mg PO DAILY [facility] Last Admin: 08/20/17 09:28 Dose: 0.4 mg Tramadol HCl (Ultram) 50 mg PO TID PRN PRN Reason: Pain, moderate (4-7) Last Admin: 08/19/17 22:58 Dose: 50 mg - Labs Labs: 08/18/17 11:20 08/18/17 11:20 PT 17.7 SECONDS (9.4-12.5) H 08/17/17 19:53 INR 1.54 (0.93-1.08) H 08/17/17 19:53 APTT 31.7 Seconds (25.1-36.5) 08/17/17 19:53 - Respiratory Exam Respiratory Exam: Clear to Ausculation Bilateral, NORMAL BREATHING PATTERN - Cardiovascular Exam Cardiovascular Exam: REGULAR RHYTHM - GI/Abdominal Exam GI & Abdominal Exam: Soft, Normal Bowel Sounds - Extremities Exam Extremities Exam: Normal Inspection - Neurological Exam Neurological Exam: Alert, Awake - Skin Skin Exam: Dry, Warm Assessment and Plan (1) Acute subdural hematoma Status: Acute (2) ESRD (end stage renal disease) on dialysis Status: Acute (3) Diabetes Status: Chronic - Assessment and Plan (Free Text) Plan: continue present care, Dr. Kessler to resume care of patient in am
--- NOTE | 2017-08-20 14:34 | PN ---
DATE: 08/20/2017 SUBJECTIVE: The patient is seen lying in bed. He is awake. He is alert. He is comfortable. He does not appear to be in any kind of distress. PHYSICAL EXAMINATION: VITAL SIGNS: Blood pressure 134/62, heart rate 64, respiratory rate 20, temperature 98.4. HEENT: Normocephalic, atraumatic. Positive pallor. NECK: Supple. No JVD. LUNGS: Bilateral equal air entry, bilateral equal expansion. CARDIAC: S1 and S2. Regular rate and rhythm. No murmur, no rub. ABDOMEN: Obese, distended. Soft, nontender. Bowel sounds present. EXTREMITIES: No lower extremity edema. INTAKE AND OUTPUT: Not charted. LABORATORY DATA: No new labs. MEDICATIONS: List reviewed. Hydralazine 20 b.i.d., Brovana, Claritin, Drisdol, DuoNeb, aspirin, Flomax, insulin, Lipitor, Lyrica, Starlix, PhosLo, Prandin, Protonix, Renagel, guaifenesin, Singulair, Synthroid. ASSESSMENT AND PLAN: 1. Subdural hematoma secondary to fall. 2. Recurrent fall in the hospital. 3. Tke-rodzjhf-qdgjosznx diabetes mellitus. 4. Autonomic dysfunction (?). 5. End-stage renal disease. 6. Anemia. 7. Hypertension. 8. Coronary artery disease, recent drug-eluting stent placement. PLAN: 1. Dialysis tomorrow. 2. Continue phosphate binders. 3. Aspirin restarted, continue to monitor. 4. Gait training. Eva Malcolm MD
[2017-08-20] MEDS: Insulin Human NPH 1 UNITS/0.01 ML SC SCH (17:04)
[2017-08-20] MEDS: NATEGLINIDE PO SCH (22:07)
--- NOTE | 2017-08-20 22:20 | PN ---
DATE: 08/20/2017 PULMONARY PROGRESS NOTE REFERRING PHYSICIAN: Diana Kessler MD SUBJECTIVE: Sitting side of the bed. Family at bedside. Night was unremarkable. Refused to use CPAP last night. No headache, no rhinitis. Cough is better. No nausea, no vomiting, no diarrhea. No leg pain or leg swelling. OBJECTIVE: GENERAL: In no acute distress. VITAL SIGNS: Temperature is 98, heart rate is 71, respiratory rate is 20, blood pressure 126/45, pulse ox 99% on room air. HEENT: Moist mucous membrane. Crowded airway. NECK: Supple. No JVD. Has a short thick neck. LUNGS: Has a fair airflow. Prolonged expiratory phase. HEART: S1, S2. ABDOMEN: Soft, nontender. No organomegaly. EXTREMITIES: Not much edema. NEUROLOGIC: Awake, alert, follows simple command. MEDICATIONS: He is on hydralazine 20 mg twice a day, Brovana inhaled twice a day, Claritin 10 mg at bedtime, vitamin D 50,000 units weekly, DuoNeb every 6 hours p.r.n., Ecotrin 81 mg daily, Flomax 0.4 mg daily, insulin coverage, Lipitor 40 mg daily, Lyrica 50 mg at bedtime, multivitamins daily, nasal saline one spray to each nostril every 2 hour p.r.n., PhosLo a.c. t.i.d., Prandin 1 mg a.c., Protonix 40 mg daily, Pulmicort inhaled twice a day, Renagel with the meals, Robitussin DM every 4 hours p.r.n., Singulair 10 mg daily, Synthroid 25 mcg daily, TriCor 145 mg daily, Ultram 50 every 8 hours p.r.n., Zofran p.r.n. basis. LABORATORY DATA: Reviewed. Noted blood sugar this morning 72. Microbiology data reviewed, no new microbiology data available. IMPRESSION AND PLAN: Status post fall with cranial bleed, severe peripheral vascular disease, nonhealing leg ulcer, chronic obstructive lung disease, obstructive sleep apnea syndrome, cardiac arrhythmia requiring pacemaker, pulmonary hypertension, diabetes, renal failure, dialysis dependent, activities of daily living dysfunction. Spoke to respiratory therapy according to the data. The patient refused continuous positive airway pressure, requested to bring back and urged the patient to use continuous positive airway pressure. Risk and benefit of sleep apnea and continuous positive airway pressure were discussed. The patient expressed understanding. The patient is off steroids. Continue inhaled bronchodilator closely. Watch blood sugar, high risk for fall. Also have a discussion about his risk of fall and danger while on antiplatelet. Had to use walker or also be careful with the fall, can may benefit from inpatient rehab. Also spoke to family at bedside. All the questions were answered. Thank you and we will follow with you. Jarred Escalera MD
[2017-08-21] MEDS: Levothyroxine 25 MCG TAB PO SCH (06:01)
[2017-08-21] MEDS: Pantoprazole 40 mg EC Tab PO SCH (06:02)
--- NOTE | 2017-08-21 07:05 | CP.PCM.PN ---
Subjective - Date & Time of Evaluation Date of Evaluation: 08/21/17 Time of Evaluation: 06:05 - Subjective Subjective: Awake, no distress, claimed to have uneventful weekend, feels good Reason for consultation and follow up: Cardiac evaluation post fall,coronary artery disease post stents on Brilinta and Aspirin. (Patient resistant to Plavix ) PPM for symptomatic bradycardia, COPD,ESRD on hemodialysis (MWF),hypertension , hyperlipidemia, obesity, diabetes mellitus, hyperlipidemia, diabetic neuropathy,diabetic retinopathy Seen and examined by me and Dr. Erickson Objective - Vital Signs/Intake and Output Vital Signs (last 24 hours): Temp Pulse Resp BP Pulse Ox 98.4 F 69 20 150/53 L 99 08/20/17 22:20 08/20/17 22:20 08/20/17 22:20 08/20/17 22:20 08/20/17 22:20 Intake and Output: 08/21/17 08/21/17 06:59 18:59 Intake Total 120 Balance 120 - Medications Medications: Current Medications Albuterol/Ipratropium (Duoneb 3 Mg/0.5 Mg (3 Ml) Ud) 3 ml IH [id number] PRN PRN Reason: Shortness of Breath Last Admin: 08/20/17 12:46 Dose: 3 ml Arformoterol Tartrate (Brovana) 15 mcg IH [id number] [facility] Last Admin: 08/20/17 19:37 Dose: 15 mcg Aspirin (Ecotrin) 81 mg PO DAILY [facility] Last Admin: 08/20/17 09:28 Dose: 81 mg Atorvastatin Calcium (Lipitor) 40 mg PO DIN [facility] Last Admin: 08/20/17 17:06 Dose: 40 mg Budesonide (Pulmicort Respules) 0.5 mg IH [id number] [facility] Last Admin: 08/20/17 19:37 Dose: 0.5 mg Calcium Acetate (Phoslo) 2,001 mg PO ACTID [facility] Last Admin: 08/20/17 17:07 Dose: 2,001 mg Ergocalciferol (Drisdol 50,000 Intl Units Cap) 1 cap PO WED [facility] Last Admin: 08/16/17 10:07 Dose: 1 cap Fenofibrate (Tricor) 145 mg PO DAILY [facility] Last Admin: 08/20/17 09:31 Dose: 145 mg Guaifenesin/Dextromethorphan (Robitussin Dm) 10 ml PO Q4H PRN PRN Reason: Cough Last Admin: 08/12/17 20:19 Dose: 10 ml Hydralazine HCl (Apresoline) 20 mg PO BID [facility] Last Admin: 08/20/17 17:05 Dose: 20 mg Insulin Human NPH (Humulin N) 70 units SC ACD [facility] Last Admin: 08/20/17 17:04 Dose: 70 units Insulin Human Regular (Humulin R Med) 0 units SC ACHS [facility] PRN Reason: Protocol Last Admin: 08/20/17 22:07 Dose: Not Given Levothyroxine Sodium (Synthroid) 25 mcg PO 0600 [facility] Last Admin: 08/21/17 06:01 Dose: 25 mcg Loratadine (Claritin) 10 mg PO DAILY [facility] Last Admin: 08/20/17 09:30 Dose: 10 mg Montelukast Sodium (Singulair) 10 mg PO HS [facility] Last Admin: 08/20/17 22:06 Dose: 10 mg Non-Formulary Medication (Multivitamin With Iron [Multivitamins With Iron]) 1 each PO DAILY [facility] Last Admin: 08/20/17 09:30 Dose: Not Given Non-Formulary Medication (Nateglinide [Starlix]) 1 tab PO [facility] Last Admin: 08/20/17 22:07 Dose: Not Given Ondansetron HCl (Zofran Inj) 4 mg IVP Q6H PRN PRN Reason: Nausea/Vomiting Pantoprazole Sodium (Protonix Ec Tab) 40 mg PO 0600 [facility] Last Admin: 08/21/17 06:02 Dose: 40 mg Pregabalin (Lyrica) 50 mg PO HS [facility] Last Admin: 08/20/17 22:07 Dose: 50 mg Repaglinide (Prandin) 1 mg PO AC [facility] Last Admin: 08/20/17 17:06 Dose: 1 mg Sevelamer HCl (Renagel) 1,600 mg PO TID [facility] Last Admin: 08/20/17 17:05 Dose: 1,600 mg Sodium Chloride ([place] Nasal [place]) 1 ml NS Q2H PRN PRN Reason: Nasal congestion Last Admin: 08/15/17 18:12 Dose: 1 dose Tamsulosin HCl (Flomax) 0.4 mg PO DAILY [facility] Last Admin: 08/20/17 09:28 Dose: 0.4 mg Tramadol HCl (Ultram) 50 mg PO TID PRN PRN Reason: Pain, moderate (4-7) Last Admin: 08/21/17 06:01 Dose: 50 mg - Labs Labs: 08/18/17 11:20 08/18/17 11:20 PT 17.7 SECONDS (9.4-12.5) H 08/17/17 19:53 INR 1.54 (0.93-1.08) H 08/17/17 19:53 APTT 31.7 Seconds (25.1-36.5) 08/17/17 19:53 - Constitutional Appears: No Acute Distress - Head Exam Head Exam: NORMOCEPHALIC - Eye Exam Eye Exam: Normal appearance - ENT Exam ENT Exam: Mucous Membranes Moist - Respiratory Exam Respiratory Exam: Clear to Ausculation Bilateral, NORMAL BREATHING PATTERN - Cardiovascular Exam Cardiovascular Exam: +S1, +S2 Additional comments: PPM AV shunt + bruit PICC - GI/Abdominal Exam GI & Abdominal Exam: Soft, Normal Bowel Sounds - Exam Additional comments: Hemodialysis (MWF) - Extremities Exam Extremities Exam: Normal Capillary Refill - Neurological Exam Neurological Exam: Alert, Awake, Oriented x3 - Psychiatric Exam Psychiatric exam: Normal Affect, Normal Mood - Skin Skin Exam: Intact, Normal Color, Warm Assessment and Plan - Assessment and Plan (Free Text) Assessment: 52 year old male who came in to the ER due to fall at dialysis center.He missed his dialysis Monday and came in Monday. While weighing the patient standing his legs gave way and fell. He has been falling frequently over the last 1-2 weeks, and has fallen x 2 episodes 2 days ago. History of coronary artery disease post stents x 2 06/12/17,on Brilinta and Aspirin. (Patient resistant to Plavix) PPM for symptomatic bradycardia 06/27/17, COPD,ESRD on hemodialysis (MWF),hypertension, hyperlipidemia, obesity, diabetes mellitus, hyperlipidemia, diabetic neuropathy,diabetic retinopathy Patient known to service. He was just discharged from TCU 07/11/17. CT of head showed subdural hematoma. Admitted to ICU,stabilized then transferred to telemetry. Had a fall in telemetry landed on buttocks, CT of head repeat -no evidence of bleeding.Started ASA 81 mg daily 08/16/17. Plan: Transferred to Medical floor from telemetry over the weekend Fall precaution Instructed to use call light and ask for assistance when getting up For hemodialysis today as scheduled Started on ASA 81 mg daily Start Brilinta on Monday08/22/17 for 3 months Stable heart rate and blood pressure Continue current medications Continue current treatment Will follow up Plan and treatment discussed with Dr. Erickson
[2017-08-21] MEDS: Albuterol-Ipratrop 3 mg / 0.5 (3 ml) UD IH PRN ×2 (07:36→13:26)
[2017-08-21] MEDS: Arformoterol 15 mcg/2 ml Inh Sol IH SCH ×2 (07:36→19:47)
[2017-08-21] MEDS: Budesonide 0.5 mg/2 ml Inhal Susp UD IH SCH ×2 (07:36→19:48)
[2017-08-21] MEDS: Insulin Reg-MEDIUM-Coverage SC SCH ×4 (07:40→22:00)
--- NOTE | 2017-08-21 09:03 | PN ---
DATE: 08/18/2017 SUBJECTIVE: Patient is a 52-year-old male. Patient was seen and examined at the bedside, looking comfortable. No nausea, vomiting, or diarrhea. No hematuria or hematochezia. No headache, no dizziness. No chest pain, no palpitation. No fever, no chills. PHYSICAL EXAMINATION: VITAL SIGNS: Temperature 98.3, pulse 89, respiratory rate 20, blood pressure 118/80, pulse oximetry 98. HEENT: Head normocephalic, atraumatic. Eyes PERRLA. Extraocular muscles intact. Conjunctivae clear. Nose patent. Mucous membrane moist. NECK: Supple. No carotid bruit. No JVD, no thyromegaly. CHEST: Bilaterally symmetrical. HEART: S1 and S2 positive. LUNGS: Clear to auscultation. ABDOMEN: Soft. Bowel sounds positive. No organomegaly. EXTREMITIES: No edema. No cyanosis. NEUROLOGICAL: The patient is awake, alert. Moving all four extremities. Oriented x3. MEDICATIONS: DuoNeb, Brovana, aspirin, Pulmicort, calcium, TriCor, gemfibrozil. LABORATORY DATA: White blood cells 5.2, hemoglobin 9.1, hematocrit 28.5, platelets 84. Sodium 139, potassium 5.1, BUN 75, creatinine 9.5, glucose 135. ASSESSMENT AND PLAN: Mr. Jason Berger, 52-year-old male with leukopenia, anemia, thrombocytopenia, practically pancytopenia, hyperkalemia, renal insufficiency, on hemodialysis 3 times a week, diabetic nephropathy, diabetic neuropathy, hyperphosphatemia, hypermagnesemia, abnormal liver function test. CAT scan of head done. Repeat CAT scan showed resolving left parafalcine subdural hematoma. No new intracranial hemorrhage, atrophy, or small vessel disease. Seen by Dr. Anna Mancuso. History of fall last night. Actually, they were transferring patient from one floor to another and he slipped and was sitting on his buttocks. Actually, according to the patient, he was getting out of the chair and walking when his foot slipped and he fell down, denies hitting head. No shortness of breath. History of intracranial bleeding, chronic obstructive pulmonary disease, coronary artery disease, status post cardiac stenting. Last night episode noted. History of symptomatic bradycardia, so got pacemaker. Hypertension, hypercholesterolemia, obesity. Transfer to medical floor was held. Fall precautions. Started aspirin 81 mg by the enrollment services dean. Started Brilinta on Monday for 3 months. Concern of cardiac stent thrombosis and occluding. Stable blood pressure. Continue current medication. Length of time discussion done with patient's mother. Sitting at the bedside, discussion done with the patient. Gastrointestinal and deep vein thrombosis prophylaxis. Repeat labs. We will follow up. Diana Kessler MD [email or web address]
[2017-08-21] MEDS: MULTIVITAMIN WITH IRON PO SCH (11:37)
--- NOTE | 2017-08-21 14:04 | PN ---
DATE: 08/21/2017 SUBJECTIVE: The patient is seen sitting in chair. He is awake. He is alert. He is comfortable. He denies any pain. Denies any shortness of breath. PHYSICAL EXAMINATION: GENERAL: Middle-aged male sitting in chair. VITAL SIGNS: Blood pressure 168/46, heart rate 68, respiratory rate 20, temperature 97.8. HEENT: Normocephalic, atraumatic. NECK: Supple, no JVD. LUNGS: Bilateral equal air entry, bilateral equal expansion. CARDIAC: S1 and S2, regular rate and rhythm, no murmur, no rub. ABDOMEN: Obese, distended, soft, nontender, bowel sounds present. EXTREMITIES: Chronic stasis changes, no edema. INTAKE AND OUTPUT: Not charted. LABORATORY DATA: No new labs. CURRENT MEDICATIONS: Apresoline, Brovana, Claritin, Drisdol, DuoNeb, Ecotrin, Flomax, insulin, Lipitor, Lyrica, PhosLo, Prandin, Protonix, Renagel, guaifenesin, Singulair, Synthroid, tramadol, Zofran. ASSESSMENT: 1. Subdural hematoma status post fall. 2. Instability of gait. 3. Noninsulin-dependent diabetes mellitus. 4. Hypertension. 5. Coronary artery disease, recent drug-eluting stent. 6. End-stage renal disease. PLAN: 1. The patient has been restarted on aspirin because of his recent drug-eluting stent. He is off Brilinta. 2. Dialysis today. 3. Continue phosphate binders, PhosLo and Renagel. 4. Discharge planning. 5. Close outpatient followup with Cardiology. Eva Malcolm MD
[2017-08-21 14:31] LABS: CALCIUM 9.3 mg/dL (8.4-10.5)
[2017-08-21 14:41] LABS: BASO # 0.01 K/mm3 (0.0-2.0); BASO % 0.2 % (0.0-3.0); EOS # 0.1 (0.0-0.7); GRAN # 3.79 (1.4-6.5); HEMOGLOBIN 9.1 g/dL (14.0-18.0); LYMPH # 1.6 (1.2-3.4); LYMPH % 26.2 % (22.0-35.0); MEAN CELL VOLUME 93.7 fl (80.0-105.0); MEAN CORPUSCULAR HEMOGLOBIN 30.3 pg (25.0-35.0); MEAN CORPUSCULAR HGB CONC 32.4 g/dl (31.0-37.0); MEAN PLATELET VOLUME 12.4 fl (7.0-11.0); MONO # 0.5 (0.1-0.6); MONO % 7.6 % (1.0-6.0); WHITE BLOOD COUNT 5.9 10^3/ul (4.5-11.0)
[2017-08-21] MEDS: Insulin Human NPH 1 UNITS/0.01 ML SC SCH (18:46)
[2017-08-21] MEDS ORDERED: HYDROmorphone 0.5 mg/0.5 ml ISec IVP PRN (21:26)
--- NOTE | 2017-08-22 01:32 | PN ---
DATE: 08/21/2017 PULMONARY PROGRESS NOTE REFERRING PHYSICIAN: Diana Kessler MD SUBJECTIVE: He is examined and seen on the dialysis chair. Night was unremarkable. Not very compliant with the CPAP. No cough or sputum production. No nausea, no vomiting, no diarrhea. Decreased leg swelling. PHYSICAL EXAMINATION: GENERAL: In no acute distress. VITAL SIGNS: Temperature is 98, heart rate is 83, respiratory rate is 18, blood pressure 163/45, pulse ox 98% on room air. HEENT: Moist mucous membrane. Crowded airway. NECK: Short, thick neck. LUNGS: Has a fair airflow with a few rhonchi. HEART: S1, S2. ABDOMEN: Soft, nontender. No organomegaly. EXTREMITIES: Not much edema. NEUROLOGIC: Awake, alert. Follows simple command. MEDICATIONS: He is on hydralazine 20 mg twice a day, Brilinta 90 mg twice a day, Brovana inhaled twice a day, Claritin 10 mg daily, vitamin D one capsule weekly, DuoNeb every 6 hours p.r.n., Ecotrin 81 mg daily, Flomax 0.4 mg daily, insulin coverage, Lipitor 40 mg daily, Lyrica 50 mg at bedtime, multivitamins daily, nasal saline one spray each nostril every 2 hour p.r.n., PhosLo with meals, Prandin 1 mg before meals, Protonix 40 mg daily, Renagel 600 mg three times a day, Singulair 10 mg daily, Robitussin DM 10 mL every 4 hours, Synthroid 25 mcg daily, TriCor 145 mg daily, Ultram 50 mg three times a day p.r.n., Zofran p.r.n. LABORATORY DATA: Hemoglobin 9.1, hematocrit 28.1, WBC 5.9, platelets count is 99. Sodium 135, potassium 6, chloride 97, bicarbonate 25, BUN 81, creatinine 11, calcium is 9.3, magnesium 2.7, phosphorous 4.4. This lab is predialysis. ASSESSMENT AND PLAN: Status post fall with cranial bleed, severe peripheral vascular disease, nonhealing leg ulcer, chronic obstructive lung disease, obstructive sleep apnea syndrome, cardiac arrhythmia requiring pacemaker, pulmonary hypertension, diabetes, renal failure, dialysis dependent, activities of daily living dysfunction. Spoke to patient in detail about his chances of fall, encouraged him to use a walker. Upon discharge, will need home physical therapy. Again spoke about sleep apnea and its consequences. Encouraged the patient to use CPAP. Fall precaution. Thank you and we will follow with you. Jarred Escalera MD
[2017-08-22] MEDS ORDERED: Dextrose 50% SYRINGE Inj (50 ml) IVP ONE (02:35)
--- NOTE | 2017-08-22 02:37 | CP.PCM.PN ---
Subjective - Date & Time of Evaluation Date of Evaluation: 08/22/17 Time of Evaluation: 02:37 - Subjective Subjective: S:FSBS <40. Patient seen at bedside. Has no complaints. States he has been eating well. Medical record was reviewed. O: Last Vital Signs 3 Temp 98.4 F 08/21/17 21:33 Pulse 72 08/21/17 21:33 Resp 18 08/21/17 21:33 BP 167/84 H 08/21/17 21:33 Pulse Ox 99 08/21/17 21:33 Awake, alert. Not in distress. LUNGS: Normal breathing pattern. A:Hypoglycemia. P:Dextrose 50% 50 ml IV x 1. Nurse will inform PMD in AN so that insulin dose can be adjusted and help of may be obtained. Objective - Vital Signs/Intake and Output Vital Signs (last 24 hours): Temp Pulse Resp BP Pulse Ox 98.4 F 72 18 167/84 H 99 08/21/17 21:33 08/21/17 21:33 08/21/17 21:33 08/21/17 21:33 08/21/17 21:33 Intake and Output: 08/21/17 08/22/17 18:59 06:59 Intake Total 660 Balance 660 - Medications Medications: Current Medications Albuterol/Ipratropium (Duoneb 3 Mg/0.5 Mg (3 Ml) Ud) 3 ml IH [id number] PRN PRN Reason: Shortness of Breath Last Admin: 08/21/17 13:26 Dose: 3 ml Arformoterol Tartrate (Brovana) 15 mcg IH [id number] [facility] Last Admin: 08/21/17 19:47 Dose: 15 mcg Aspirin (Ecotrin) 81 mg PO DAILY [facility] Last Admin: 08/21/17 09:27 Dose: 81 mg Atorvastatin Calcium (Lipitor) 40 mg PO DIN [facility] Last Admin: 08/21/17 18:45 Dose: 40 mg Budesonide (Pulmicort Respules) 0.5 mg IH [id number] [facility] Last Admin: 08/21/17 19:48 Dose: 0.5 mg Calcium Acetate (Phoslo) 2,001 mg PO ACTID [facility] Last Admin: 08/21/17 18:45 Dose: 1,334 mg Dextrose (Dextrose 50% Inj) 50 ml IVP ONCE ONE Stop: 08/22/17 02:36 Ergocalciferol (Drisdol 50,000 Intl Units Cap) 1 cap PO WED [facility] Last Admin: 08/16/17 10:07 Dose: 1 cap Fenofibrate (Tricor) 145 mg PO DAILY [facility] Last Admin: 08/21/17 09:27 Dose: 145 mg Guaifenesin/Dextromethorphan (Robitussin Dm) 10 ml PO Q4H PRN PRN Reason: Cough Last Admin: 08/12/17 20:19 Dose: 10 ml Hydralazine HCl (Apresoline) 20 mg PO BID [facility] Last Admin: 08/21/17 18:45 Dose: 20 mg Hydromorphone HCl (Dilaudid) 0.5 mg IVP Q4H PRN PRN Reason: Pain, Mild (1-3) Insulin Human NPH (Humulin N) 70 units SC ACD [facility] Last Admin: 08/21/17 18:46 Dose: 70 units Insulin Human Regular (Humulin R Med) 0 units SC ACHS [facility] PRN Reason: Protocol Last Admin: 08/21/17 22:00 Dose: Not Given Levothyroxine Sodium (Synthroid) 25 mcg PO 0600 [facility] Last Admin: 08/21/17 06:01 Dose: 25 mcg Loratadine (Claritin) 10 mg PO DAILY [facility] Last Admin: 08/21/17 09:27 Dose: 10 mg Montelukast Sodium (Singulair) 10 mg PO HS [facility] Last Admin: 08/21/17 22:50 Dose: 10 mg Non-Formulary Medication (Multivitamin With Iron [Multivitamins With Iron]) 1 each PO DAILY [facility] Last Admin: 08/21/17 11:37 Dose: Not Given Non-Formulary Medication (Nateglinide [Starlix]) 1 tab PO [facility] Last Admin: 08/20/17 22:07 Dose: Not Given Ondansetron HCl (Zofran Inj) 4 mg IVP Q6H PRN PRN Reason: Nausea/Vomiting Pantoprazole Sodium (Protonix Ec Tab) 40 mg PO 0600 [facility] Last Admin: 08/21/17 06:02 Dose: 40 mg Pregabalin (Lyrica) 50 mg PO HS [facility] Last Admin: 08/21/17 22:50 Dose: 50 mg Repaglinide (Prandin) 1 mg PO AC [facility] Last Admin: 08/21/17 18:46 Dose: 1 mg Sevelamer HCl (Renagel) 1,600 mg PO TID [facility] Last Admin: 08/21/17 18:46 Dose: 1,600 mg Sodium Chloride ([place] Nasal [place]) 1 ml NS Q2H PRN PRN Reason: Nasal congestion Last Admin: 08/15/17 18:12 Dose: 1 dose Tamsulosin HCl (Flomax) 0.4 mg PO DAILY [facility] Last Admin: 08/21/17 09:27 Dose: 0.4 mg Ticagrelor (Brilinta) 90 mg PO BID [facility] Tramadol HCl (Ultram) 50 mg PO TID PRN PRN Reason: Pain, moderate (4-7) Last Admin: 08/21/17 22:52 Dose: 50 mg - Labs Labs: 08/21/17 14:05 08/21/17 14:05 PT 17.7 SECONDS (9.4-12.5) H 08/17/17 19:53 INR 1.54 (0.93-1.08) H 08/17/17 19:53 APTT 31.7 Seconds (25.1-36.5) 08/17/17 19:53
[2017-08-22] MEDS ORDERED: Dextrose 50% SYRINGE Inj (50 ml) ONE ×2 (02:38→06:38)
--- NOTE | 2017-08-22 05:57 | CP.PCM.PN ---
Subjective - Date & Time of Evaluation Date of Evaluation: 08/22/17 Time of Evaluation: 06:10 - Subjective Subjective: Awake,alert no distress, claimed to have glucose digester hand Reason for consultation and follow up: Cardiac evaluation post fall,coronary artery disease post stents on Brilinta and Aspirin. (Patient resistant to Plavix ) PPM for symptomatic bradycardia, COPD,ESRD on hemodialysis (MWF),hypertension , hyperlipidemia, obesity, diabetes mellitus, hyperlipidemia, diabetic neuropathy,diabetic retinopathy Seen and examined by me and Dr. Erickson Objective - Vital Signs/Intake and Output Vital Signs (last 24 hours): Temp Pulse Resp BP Pulse Ox 98.4 F 72 18 167/84 H 99 08/21/17 21:33 08/21/17 21:33 08/21/17 21:33 08/21/17 21:33 08/21/17 21:33 Intake and Output: 08/21/17 08/22/17 18:59 06:59 Intake Total 660 Balance 660 - Medications Medications: Current Medications Albuterol/Ipratropium (Duoneb 3 Mg/0.5 Mg (3 Ml) Ud) 3 ml IH [id number] PRN PRN Reason: Shortness of Breath Last Admin: 08/21/17 13:26 Dose: 3 ml Arformoterol Tartrate (Brovana) 15 mcg IH [id number] [facility] Last Admin: 08/21/17 19:47 Dose: 15 mcg Aspirin (Ecotrin) 81 mg PO DAILY [facility] Last Admin: 08/21/17 09:27 Dose: 81 mg Atorvastatin Calcium (Lipitor) 40 mg PO DIN [facility] Last Admin: 08/21/17 18:45 Dose: 40 mg Budesonide (Pulmicort Respules) 0.5 mg IH [id number] [facility] Last Admin: 08/21/17 19:48 Dose: 0.5 mg Calcium Acetate (Phoslo) 2,001 mg PO ACTID [facility] Last Admin: 08/21/17 18:45 Dose: 1,334 mg Ergocalciferol (Drisdol 50,000 Intl Units Cap) 1 cap PO WED [facility] Last Admin: 08/16/17 10:07 Dose: 1 cap Fenofibrate (Tricor) 145 mg PO DAILY [facility] Last Admin: 08/21/17 09:27 Dose: 145 mg Guaifenesin/Dextromethorphan (Robitussin Dm) 10 ml PO Q4H PRN PRN Reason: Cough Last Admin: 08/12/17 20:19 Dose: 10 ml Hydralazine HCl (Apresoline) 20 mg PO BID [facility] Last Admin: 08/21/17 18:45 Dose: 20 mg Hydromorphone HCl (Dilaudid) 0.5 mg IVP Q4H PRN PRN Reason: Pain, Mild (1-3) Insulin Human NPH (Humulin N) 70 units SC ACD [facility] Last Admin: 08/21/17 18:46 Dose: 70 units Insulin Human Regular (Humulin R Med) 0 units SC ACHS [facility] PRN Reason: Protocol Last Admin: 08/21/17 22:00 Dose: Not Given Levothyroxine Sodium (Synthroid) 25 mcg PO 0600 [facility] Last Admin: 08/21/17 06:01 Dose: 25 mcg Loratadine (Claritin) 10 mg PO DAILY [facility] Last Admin: 08/21/17 09:27 Dose: 10 mg Montelukast Sodium (Singulair) 10 mg PO [facility] Last Admin: 08/21/17 22:50 Dose: 10 mg Non-Formulary Medication (Multivitamin With Iron [Multivitamins With Iron]) 1 each PO DAILY [facility] Last Admin: 08/21/17 11:37 Dose: Not Given Non-Formulary Medication (Nateglinide [Starlix]) 1 tab PO [facility] Last Admin: 08/20/17 22:07 Dose: Not Given Ondansetron HCl (Zofran Inj) 4 mg IVP Q6H PRN PRN Reason: Nausea/Vomiting Pantoprazole Sodium (Protonix Ec Tab) 40 mg PO 0600 [facility] Last Admin: 08/21/17 06:02 Dose: 40 mg Pregabalin (Lyrica) 50 mg PO HS [facility] Last Admin: 08/21/17 22:50 Dose: 50 mg Repaglinide (Prandin) 1 mg PO AC [facility] Last Admin: 08/21/17 18:46 Dose: 1 mg Sevelamer HCl (Renagel) 1,600 mg PO TID [facility] Last Admin: 08/21/17 18:46 Dose: 1,600 mg Sodium Chloride ([place] Nasal [place]) 1 ml NS Q2H PRN PRN Reason: Nasal congestion Last Admin: 08/15/17 18:12 Dose: 1 dose Tamsulosin HCl (Flomax) 0.4 mg PO DAILY [facility] Last Admin: 08/21/17 09:27 Dose: 0.4 mg Ticagrelor (Brilinta) 90 mg PO BID [facility] Tramadol HCl (Ultram) 50 mg PO TID PRN PRN Reason: Pain, moderate (4-7) Last Admin: 08/21/17 22:52 Dose: 50 mg - Labs Labs: 08/21/17 14:05 08/21/17 14:05 PT 17.7 SECONDS (9.4-12.5) H 08/17/17 19:53 INR 1.54 (0.93-1.08) H 08/17/17 19:53 APTT 31.7 Seconds (25.1-36.5) 08/17/17 19:53 - Constitutional Appears: No Acute Distress - Head Exam Head Exam: NORMOCEPHALIC - Eye Exam Eye Exam: Normal appearance - ENT Exam ENT Exam: Mucous Membranes Moist - Respiratory Exam Respiratory Exam: Clear to Ausculation Bilateral, NORMAL BREATHING PATTERN - Cardiovascular Exam Cardiovascular Exam: +S1, +S2 Additional comments: PICC PPM AV shunt - GI/Abdominal Exam GI & Abdominal Exam: Soft, Normal Bowel Sounds - Extremities Exam Extremities Exam: Normal Capillary Refill - Neurological Exam Neurological Exam: Alert, Awake, Oriented x3 - Psychiatric Exam Psychiatric exam: Normal Affect, Normal Mood - Skin Skin Exam: Intact, Normal Color, Warm Assessment and Plan - Assessment and Plan (Free Text) Assessment: 52 year old male who came in to the ER due to fall at dialysis center.He missed his dialysis Monday and came in Monday. While weighing the patient standing his legs gave way and fell. He has been falling frequently over the last 1-2 weeks, and has fallen x 2 episodes 2 days ago. History of coronary artery disease post stents x 2 06/12/17,on Brilinta and Aspirin. (Patient resistant to Plavix) PPM for symptomatic bradycardia 06/27/17, COPD,ESRD on hemodialysis (MWF) ,hypertension, hyperlipidemia, obesity, diabetes mellitus, hyperlipidemia, diabetic neuropathy,diabetic retinopathy Patient known to service. He was just discharged from TCU 07/11/17. CT of head showed subdural hematoma. Admitted to ICU,stabilized then transferred to telemetry. Had a fall in telemetry landed on buttocks, CT of head repeat -no evidence of bleeding.Started ASA 81 mg daily 08/16/17. Plan: Episode of hypoglycemia digester hand, Dextrose IV given,stabilized Had hemodialysis yesterday Fall precaution Instructed to use call light and ask for assistance when getting up Start Brilinta 90 mg BID today ( for 3 months ) Continue ASA 81 mg daily Stable heart rate and blood pressure Continue current medications Continue current treatment Will follow up Plan and treatment discussed with Dr. Erickson
[2017-08-22] MEDS: Levothyroxine 25 MCG TAB PO SCH (06:06)
[2017-08-22] MEDS: Pantoprazole 40 mg EC Tab PO SCH (06:06)
[2017-08-22] MEDS: Insulin Reg-MEDIUM-Coverage SC SCH ×3 (07:30→22:00)
[2017-08-22] MEDS: Budesonide 0.5 mg/2 ml Inhal Susp UD IH SCH ×2 (07:31→21:32)
[2017-08-22] MEDS: Arformoterol 15 mcg/2 ml Inh Sol IH SCH ×2 (07:31→21:32)
--- NOTE | 2017-08-22 08:06 | CP.PCM.PN ---
Subjective - Date & Time of Evaluation Date of Evaluation: 08/22/17 Time of Evaluation: 14:11 - Subjective Subjective: Heme-Onc Progress note for Dr. Patricia Patient seen and examined at bedside. Nursing reported no acute events overnight. Patient was sitting up in bed resting comfortably. Denied acute complaints of fever, chills, headache, dizziness, chest pain, palpitations, SOB , cough, abd pain, nausea, vomiting, bowel/bladder complaints, pain/swelling/ paresethesias in all 4 extremities. Patient is tolerating PO diet and is to start Brilinta this AM. He is eager to be discharged in the AM. Objective - Vital Signs/Intake and Output Vital Signs (last 24 hours): Temp Pulse Resp BP Pulse Ox 97.8 F 71 20 166/57 H 97 08/22/17 06:00 08/22/17 06:00 08/22/17 06:00 08/22/17 06:00 08/22/17 06:00 Intake and Output: 08/22/17 08/22/17 06:59 18:59 Intake Total 1200 Output Total 50 Balance 1150 - Medications Medications: Current Medications Albuterol/Ipratropium (Duoneb 3 Mg/0.5 Mg (3 Ml) Ud) 3 ml IH [id number] PRN PRN Reason: Shortness of Breath Last Admin: 08/21/17 13:26 Dose: 3 ml Arformoterol Tartrate (Brovana) 15 mcg IH [id number] [facility] Last Admin: 08/22/17 07:31 Dose: 15 mcg Aspirin (Ecotrin) 81 mg PO DAILY [facility] Last Admin: 08/21/17 09:27 Dose: 81 mg Atorvastatin Calcium (Lipitor) 40 mg PO DIN [facility] Last Admin: 08/21/17 18:45 Dose: 40 mg Budesonide (Pulmicort Respules) 0.5 mg IH [id number] [facility] Last Admin: 08/22/17 07:31 Dose: 0.5 mg Calcium Acetate (Phoslo) 2,001 mg PO ACTID [facility] Last Admin: 08/22/17 07:53 Dose: 1,334 mg Ergocalciferol (Drisdol 50,000 Intl Units Cap) 1 cap PO WED [facility] Last Admin: 08/16/17 10:07 Dose: 1 cap Fenofibrate (Tricor) 145 mg PO DAILY [facility] Last Admin: 08/21/17 09:27 Dose: 145 mg Guaifenesin/Dextromethorphan (Robitussin Dm) 10 ml PO Q4H PRN PRN Reason: Cough Last Admin: 08/12/17 20:19 Dose: 10 ml Hydralazine HCl (Apresoline) 20 mg PO BID [facility] Last Admin: 08/21/17 18:45 Dose: 20 mg Hydromorphone HCl (Dilaudid) 0.5 mg IVP Q4H PRN PRN Reason: Pain, Mild (1-3) Insulin Human NPH (Humulin N) 70 units SC ACD [facility] Last Admin: 08/21/17 18:46 Dose: 70 units Insulin Human Regular (Humulin R Med) 0 units SC ACHS [facility] PRN Reason: Protocol Last Admin: 08/21/17 22:00 Dose: Not Given Levothyroxine Sodium (Synthroid) 25 mcg PO 0600 [facility] Last Admin: 08/22/17 06:06 Dose: 25 mcg Loratadine (Claritin) 10 mg PO DAILY [facility] Last Admin: 08/21/17 09:27 Dose: 10 mg Montelukast Sodium (Singulair) 10 mg PO [facility] Last Admin: 08/21/17 22:50 Dose: 10 mg Non-Formulary Medication (Multivitamin With Iron [Multivitamins With Iron]) 1 each PO DAILY [facility] Last Admin: 08/21/17 11:37 Dose: Not Given Non-Formulary Medication (Nateglinide [Starlix]) 1 tab PO [facility] Last Admin: 08/20/17 22:07 Dose: Not Given Ondansetron HCl (Zofran Inj) 4 mg IVP Q6H PRN PRN Reason: Nausea/Vomiting Pantoprazole Sodium (Protonix Ec Tab) 40 mg PO 0600 [facility] Last Admin: 08/22/17 06:06 Dose: 40 mg Pregabalin (Lyrica) 50 mg PO HS [facility] Last Admin: 08/21/17 22:50 Dose: 50 mg Repaglinide (Prandin) 1 mg PO AC [facility] Last Admin: 08/22/17 07:53 Dose: Not Given Sevelamer HCl (Renagel) 1,600 mg PO TID [facility] Last Admin: 08/21/17 18:46 Dose: 1,600 mg Sodium Chloride ([place] Nasal [place]) 1 ml NS Q2H PRN PRN Reason: Nasal congestion Last Admin: 08/15/17 18:12 Dose: 1 dose Tamsulosin HCl (Flomax) 0.4 mg PO DAILY [facility] Last Admin: 08/21/17 09:27 Dose: 0.4 mg Ticagrelor (Brilinta) 90 mg PO BID [facility] Tramadol HCl (Ultram) 50 mg PO TID PRN PRN Reason: Pain, moderate (4-7) Last Admin: 08/21/17 22:52 Dose: 50 mg - Labs Labs: 08/21/17 14:05 08/21/17 14:05 PT 17.7 SECONDS (9.4-12.5) H 08/17/17 19:53 INR 1.54 (0.93-1.08) H 08/17/17 19:53 APTT 31.7 Seconds (25.1-36.5) 08/17/17 19:53 - Constitutional Appears: Non-toxic, No Acute Distress - Head Exam Head Exam: ATRAUMATIC, NORMAL INSPECTION, NORMOCEPHALIC - Eye Exam Eye Exam: EOMI, Normal appearance, PERRL. absent: Conjunctival injection, Scleral icterus Pupil Exam: NORMAL ACCOMODATION - ENT Exam ENT Exam: Mucous Membranes Moist - Neck Exam Neck Exam: Full ROM, Normal Inspection - Respiratory Exam Respiratory Exam: Clear to Ausculation Bilateral, NORMAL BREATHING PATTERN. absent: Accessory Muscle Use, Rales, Rhonchi, Wheezes, Respiratory Distress - Cardiovascular Exam Cardiovascular Exam: +S1, +S2 - GI/Abdominal Exam GI & Abdominal Exam: Soft, Normal Bowel Sounds. absent: Tenderness - Neurological Exam Neurological Exam: Alert, Awake, CN II-XII Intact, Oriented x3 - Psychiatric Exam Psychiatric exam: Normal Affect, Normal Mood - Skin Skin Exam: Dry, Intact, Normal Color, Warm Assessment and Plan - Assessment and Plan (Free Text) Assessment: 52yo male PMHx COPD, CAD with 4 stents, recently placed PPM, ESRD on HD MWF, IDDM2 and HTN that presented to [facility] s/p mechanical fall with trauma to the head resulting in a subdural hematoma evidenced by CT Head along the falx cerebri, measuring up to 1 cm in maximum thickness with no midline shift. Patient received platelet and FFP transfusion for Brilinta reversal. Repeat CT head showed stable hematoma. Neurosurgery Dr. Frost consulted- no surgical intervention at this time. Dr. Erickson Cardiology consulted- appreciated reccs. Patient was restarted on asa 81mg and is to be restarted on Brilinta this AM. Continue with arasnep as per Nephrology, Dr. Malcolm. Hgb stable. Patient tolerating HD without incident. Continue to monitor clinical status, neurochecks. CBC, CMP, blood coags. OOB,PT/OT Discussed with Dr. Harshad Metz PGY2
--- NOTE | 2017-08-22 08:49 | PN ---
DATE: 08/21/2017 SUBJECTIVE: The patient is 52-year-old male. The patient is seen and examined at the bedside, sitting comfortably. No nausea, vomiting, diarrhea. No hematuria or hematochezia. No swelling of the leg. No chest pain. No palpitations. Complaining about pain in the left upper extremity. No headache or dizziness. PHYSICAL EXAMINATION: VITAL SIGNS: Blood pressure 116/46, respiratory rate 20, temperature 97.8. HEENT: Head: Normocephalic, atraumatic. Eyes: PERRLA. Extraocular muscles intact. Conjunctivae clear. Nose patent. Mucous membranes moist. NECK: Supple. No carotid bruits. No JVD or thyromegaly. CHEST: Bilaterally symmetrical. HEART: S1 and S2 positive. LUNGS: Clear to auscultation. ABDOMEN: Soft. Bowel sounds present. No organomegaly. EXTREMITIES: No edema. No cyanosis. NEUROLOGICAL: The patient is awake and alert. Moving all 4 extremities. No focal deficits. MEDICATIONS: Hydralazine, Brilinta, Brovana, Claritin, vitamin D, albuterol, aspirin, Flomax, insulin, Lipitor, Lyrica, Prandin, Protonix, Synthroid. LABORATORY DATA: White blood cells 5.9, hemoglobin 9.1, hematocrit 28.1, platelets 99. Sodium 135, potassium 6, BUN 81, creatinine 11, magnesium 2.7. ASSESSMENT AND PLAN: a 52-year-old male with leukocytosis; anemia; thrombocytopenia; hyperkalemia; renal insufficiency; hypermagnesemia; has insulin-dependent diabetes mellitus, not controlled; diabetic nephropathy; diabetic retinopathy; diabetic neuropathy; has subdural hematoma, status post fall; instability in the gait, may be due to peripheral neuropathy; hypertensive coronary artery disease; recent drug-eluting stent. The patient has been started on aspirin because of his recent drug-eluting stent. He is off the Brilinta today, but may be tomorrow, we will start Brilinta as per Dr. Erickson. We will watch 24 hours for bleeding. I hope he will do good. Continue phosphate binders, PhosLo and Renagel. Reviewed Dr. Malcolm's notes. Reviewed Cardiology notes also, and Pulmonary notes. Gastrointestinal and deep venous thrombosis prophylaxis. Repeat labs. We will follow. Diana Kessler MD MTDRicardo
[2017-08-22] MEDS ORDERED: Insulin Human NPH 1 UNITS/0.01 ML SC SCH (09:50)
[2017-08-22] MEDS: MULTIVITAMIN WITH IRON PO SCH (12:50)
[2017-08-22] MEDS: Albuterol-Ipratrop 3 mg / 0.5 (3 ml) UD IH PRN (13:33)
--- NOTE | 2017-08-22 17:01 | PN ---
DATE: 08/22/2017 SUBJECTIVE: The patient is currently seen comfortable, sitting up in bed on 5R. He had been restarted back on Brilinta today. He will be monitored closely in light of his subdural hemorrhage, status post his fall to make certain he has no worsening neurological symptoms. If all goes as well, he will have dialysis here tomorrow and likely be discharged home soon after that. MEDICATIONS: Medication list reviewed. The patient is on hydralazine, Brilinta, Brovana, Claritin, Dilaudid, vitamin D, DuoNeb, Ecotrin, Flomax, insulin, Lipitor, Lyrica, multivitamins, Starlix, [place] nasal spray, PhosLo, Prandin, Protonix, Pulmicort, Renagel, Robitussin, Singulair, Synthroid, TriCor, Ultram, and Zofran. OBJECTIVE: INTAKE/OUTPUT: Intake is 1200, output is hemodialysis. VITAL SIGNS: Blood pressure 123/56, temperature 97.8, respiratory rate 20 with a pulse of 72, pulse ox 99%. HEENT: Shows him to be normocephalic, atraumatic. Conjunctivae are pale. Sclerae are nonicteric. NECK: Supple. No neck vein distention. LUNGS: Clear to auscultation and percussion. No rales, rhonchi or wheezing. CARDIOVASCULAR: Shows regular rate and rhythm with /AI/MR/TR. Positive permanent pacemaker. ABDOMEN: Soft. Mild obesity. No distention. Bowel sounds are normal. No rebound. No guarding. EXTREMITIES: Show no lower extremity edema. Positive left upper extremity AV fistula. LABORATORY DATA AND IMAGING: CBC from 08/21/2017 shows a white blood cell count of 5.9, hemoglobin stable 9.1, platelet count is 99,000. Chemistries: Predialysis yesterday, potassium 6, sodium 135, chloride 97. BUN 81 with a creatinine of 11. Calcium 9.3, phosphorus excellent at 4.4. Magnesium level mildly elevated at 2.7. ASSESSMENT: 1. Status post multiple falls at home resulting in a 9 mm subdural hemorrhage. The patient had been restarted back on Brilinta after being off the medication for 2 weeks. The patient had been cleared by Neurology and Neurosurgery. He will likely remain in the hospital another 24-48 hours on Brilinta. If he has no ill effects from the medication, he will likely be discharged home on the medication. The patient once again cautioned to walk with a walker at home to avoid any falling. 2. History of atherosclerotic heart disease status post drug-eluting stent. 3. History of permanent pacemaker secondary to life-threatening bradycardia. 4. History of valvular heart disease as noted above. 5. History of diabetes, currently on insulin. Glucose control is acceptable. If anything, it is in a low normal range today. 6. History of end-stage renal disease. The patient will continue Monday, Monday, Monday dialysis. The patient had been using a low potassium bath because of his hyperkalemia. 7. History of anemia. The patient is on maximum dose of Aranesp. We will continue IV iron per protocol on dialysis. Last hemoglobin level was stable at 9.1. 8. History of secondary hyperparathyroidism. Calcium and phosphorus levels are excellent. The patient will continue a renal diet along with binder therapy. 9. History of pulmonary hypertension, currently stable. PLAN: 1. Hemodialysis tomorrow. 2. Continue to monitor the patient closely back on chronic anticoagulation with Brilinta. 3. Continue all dietary restrictions and phosphorus binder therapy. 4. Continue to monitor glucose closely and adjust insulin accordingly. 5. Perhaps discharge in the next 24-48 hours if the patient remained stable on Brilinta. Toy Martinez MD
--- NOTE | 2017-08-22 23:31 | PN ---
DATE: 08/22/2017 SUBJECTIVE: Patient is a 52-year-old male. Patient was seen and examined at the bedside, sitting on the chair, comfortable. No nausea, vomiting, diarrhea. Tolerating food very well. Brilinta is restarted today b.i.d. and patient is educated that try to avoid fall and we will be monitoring closely for the situation of subdural hemorrhage, status post fall to make certain that he has no worsening neurological symptoms. If patient will tolerate Brilinta and everything will be fine, we will discharge patient tomorrow after dialysis. No cough, no headache, no dizziness. PHYSICAL EXAMINATION: VITAL SIGNS: Blood pressure 123/56, temperature 97.8, respiratory rate 20, pulse 72, pulse oximetry 99%. HEENT: Head: Normocephalic. Eyes: PERRLA. Extraocular muscles intact. Conjunctivae clear. Nose: Patent. Mucous membranes moist. NECK: Supple. No carotid bruits. No JVD or thyromegaly. CHEST: Bilaterally symmetrical. HEART: S1 and S2 positive. LUNGS: Clear to auscultation. ABDOMEN: Soft. Bowel sounds present. No organomegaly. EXTREMITIES: No edema. No cyanosis. NEUROLOGICAL: The patient is awake and alert. Moving all 4 extremities. No focal deficits. MEDICATIONS: Hydralazine, Brilinta, Brovana, Claritin, Dilaudid, vitamin D, DuoNeb, Ecotrin, Flomax, insulin, Lipitor, Lyrica, multivitamins, Starlix, PhosLo, Prandin, Protonix, Pulmicort, Renagel, Robitussin, Singulair, Synthroid, TriCor, Ultram, Zoloft. LABORATORY DATA: White blood cells 5.9, hemoglobin 9.1, platelet 99,000. Potassium 6.1, sodium 135, chloride 96, BUN 81, creatinine 1.1, calcium 9.3. ASSESSMENT AND PLAN: Mr. Jason Berger, 52-year-old male, status post multiple falls at home resulting in a 9-mm subdural hemorrhage. Patient's aspirin and Brilinta was on hold. Aspirin started couple of days ago, patient tolerated very well. Today, Brilinta started after being off medication for 2 weeks. Patient is cleared by Neurology and Neurosurgery. If patient will tolerate Brilinta, maybe in the next 24 to 48 hours, we will discharge the patient, but patient is educated to be careful with fall. Used walker at home. History of atherosclerotic heart disease status post drug-eluting stent, history of permanent pacemaker secondary to life-threatening bradycardia, valvular heart disease, insulin-dependent diabetes mellitus type 2, not very well controlled. Diabetic nephropathy, patient has been dialyzed 3 times a week. Diabetic neuropathy, patient is not very stable on his legs. Diabetic retinopathy, patient is partially blind. History of anemia, history of secondary hyperparathyroidism, pulmonary hypertension. We will continue hemodialysis. Continue monitoring the patient closely, back on chronic anticoagulation with Brilinta. Dietary restrictions and phosphorus binder therapy. Discussion done with the patient. Monitor glucose very closely. Physical therapy. Repeat labs. We will follow up. Diana Kessler MD
[2017-08-22] MEDS: guaiFENesin DM 200 mg-20 mg/10 ml UD PO PRN (23:39)
[2017-08-23] MEDS: NATEGLINIDE PO SCH (01:53)
--- NOTE | 2017-08-23 03:19 | PN ---
DATE: 08/22/2017 PULMONARY PROGRESS NOTE REFERRING PHYSICIAN: Dr. Kessler. SUBJECTIVE: Sleepy, arousable. Night was unremarkable. Did not use his CPAP last night. No nausea. No vomiting. No diarrhea, leg pain or leg swelling. OBJECTIVE: GENERAL: In no acute distress. VITAL SIGNS: Temp is 98, heart rate is 72, respiratory rate is 20, blood pressure 119/46, pulse ox 97% on room air. HEENT: Moist mucous membrane. Crowded airway. Mallampati score is 4. NECK: Supple. No JVD. LUNGS: Have a fair airflow with rhonchi. HEART: S1 and S2. ABDOMEN: Soft, nontender. No organomegaly. EXTREMITIES: No edema. NEUROLOGICAL: Awake, alert, follows simple commands. MEDICATIONS: He is on hydralazine 20 mg twice a day; Brilinta 90 mg twice a day; Brovana inhaled twice a day; Claritin 10 mg daily; Dilaudid 0.5 mg every 4 hours p.r.n.; vitamin D 50,000 units weekly; DuoNeb every 6 hours p.r.n.; Ecotrin 81 mg daily; Flomax 0.4 mg daily; insulin NPH 60 units subcu a.c.D.; also Lipitor 40 mg daily; Lyrica 50 mg at bedtime; Prandin 1 mg a.c.; Protonix 40 mg daily; Pulmicort inhaled twice a day; Renagel with the meals; Robitussin DM 10 mL every 4 hours p.r.n.; Singulair 10 mg daily; Synthroid 25 mcg daily; TriCor 145 mg daily; Ultram 50 mg three time a day p.r.n.; Zofran p.r.n. basis. LABORATORY DATA: Reviewed. Noted blood sugar was fluctuating from 45 to 280 today. IMPRESSION AND PLAN: Status post fall with the cranial bleed, severe peripheral vascular disease, nonhealing leg ulcer, chronic obstructive lung disease, obstructive sleep apnea syndrome, cardiac arrhythmia requiring pacemaker, pulmonary hypertension, diabetes, renal failure, dialysis-dependent, activities of daily living dysfunction, very high risk for fall. I spoke to patient in detail. We will discontinue Prandin for now. Continue insulin. Assure that patient does take his meals and snacks. Sleep apnea precaution. Encourage CPAP use. Continue bronchodilator. Again, fall precaution. Thank you, and we will follow with you. Jarred Escalera MD
[2017-08-23] MEDS: Pantoprazole 40 mg EC Tab PO SCH (06:45)
[2017-08-23] MEDS: Levothyroxine 25 MCG TAB PO SCH (06:46)
[2017-08-23 07:01] LABS: BASO # 0.02 K/mm3 (0.0-2.0); BASO % 0.4 % (0.0-3.0); EOS # 0.1 (0.0-0.7); EOS % 2.3 % (1.5-5.0); GRAN # 2.99 (1.4-6.5); GRAN % 62.7 % (50.0-68.0); HEMOGLOBIN 8.8 g/dL (14.0-18.0); LYMPH # 1.2 (1.2-3.4); LYMPH % 25.6 % (22.0-35.0); MEAN CELL VOLUME 93.9 fl (80.0-105.0); MEAN CORPUSCULAR HEMOGLOBIN 29.7 pg (25.0-35.0); MEAN CORPUSCULAR HGB CONC 31.7 g/dl (31.0-37.0); MONO # 0.4 (0.1-0.6); RBC 2.96 10^6/uL (3.5-6.1); RED CELL DISTRIBUTION WIDTH 16.8 % (11.5-14.5); WHITE BLOOD COUNT 4.8 10^3/ul (4.5-11.0)
[2017-08-23] MEDS: Arformoterol 15 mcg/2 ml Inh Sol IH SCH (07:29)
[2017-08-23] MEDS: Budesonide 0.5 mg/2 ml Inhal Susp UD IH SCH (07:29)
[2017-08-23 07:31] LABS: ALB/GLOB RATIO 0.9 (1.1-1.8); ALBUMIN 3.8 g/dL (3.0-4.8)
[2017-08-23] MEDS ORDERED: Darbepoetin Alfa 100 mcg/ml Inj IVP ONE (07:35)
[2017-08-23] MEDS: Insulin Reg-MEDIUM-Coverage SC SCH ×2 (07:37→11:54)
[2017-08-23] MEDS ORDERED: Doxercalciferol 4 mcg/2 ml Inj IVP ONE (07:38)
[2017-08-23 08:24] VITALS: RESP 20; TEMP 98.6; O2SAT 100
[2017-08-23] MEDS ORDERED: Tuberculin 5 Units/0.1 ml Inj ID ONE (11:20)
[2017-08-23] MEDS: guaiFENesin DM 200 mg-20 mg/10 ml UD PO PRN (11:53)
[2017-08-23] MEDS: Ergocalciferol 50,000 Intl Units Cap PO SCH (11:55)
[2017-08-23] MEDS: MULTIVITAMIN WITH IRON PO SCH (11:59)
[2017-08-23 12:10] VITALS: BP 137/69; PULSE 85
--- NOTE | 2017-08-23 16:05 | PN ---
DATE: 08/23/2017 REASON FOR CONSULTATION AND FOLLOWUP: Cardiac evaluation, coronary artery disease, he is status post subdural hematoma, was off of aspirin and Plavix, restarted aspirin last week and Brilinta started yesterday. SUBJECTIVE: Patient denies any chest pain, shortness of breath, or palpitation. OBJECTIVE: GENERAL: Not in apparent distress. VITAL SIGNS: Temperature afebrile, heart rate 80, blood pressure 119/46. HEENT: PERRLA. Extraocular muscles intact. NECK: Supple. No carotid bruit or thyromegaly. CHEST: Clear to auscultation. HEART: S1 and S2 regular. ABDOMEN: Soft. EXTREMITIES: Clubbing and cyanosis negative. LABORATORY DATA: Blood workup as follows. WBC 4.8, hemoglobin 8.8, hematocrit 27.8, platelet count 96. Chemistry: Sodium , potassium , chloride 96, carbon dioxide 26, anion gap of 20, BUN of , creatinine of 9. IMPRESSION: Subdural hematoma status post fall, mechanical. Subdural hematoma decreasing size. Coronary artery disease status post stent recently in 06/12/2017, was on Brilinta and aspirin when the patient fell leading to subdural hematoma. History of permanent pacemaker secondary to bradycardia on 06/27/2017 dual chamber. The patient is stable, started Brilinta yesterday, baby aspirin 81 mg daily started a week ago. Plan is to continue aspirin, Brilinta together for 3 months followed by baby aspirin alone. Emphasis made to the patient for: 1. Complete compliance of medication. 2. Emphasis on weight reduction. 3. Very careful for fall. If the patient fall, it can lead to further subdural hematoma and it can be devastating, at the same time aspirin and Brilinta can be hold for long time because of high risk for acute stent thrombosis. Discussed with the patient at length. The patient said that he understood everything, will follow with you. Possibly discharge home today. Jarred Erickson MD
--- NOTE | 2017-08-23 16:08 | PN ---
DATE: 08/23/2017 PULMONARY PROGRESS NOTE REFERRING PHYSICIAN: Diana Kessler MD SUBJECTIVE: The patient is out of bed to chair. Night was unremarkable. Could not use CPAP. No headache, no rhinitis, no nausea, no vomiting, and no diarrhea. Has a chronic lower extremity pain secondary to neuropathy. OBJECTIVE: GENERAL: In no acute distress. VITAL SIGNS: Temperature is 98, heart rate is 80, respiratory rate is 20, blood pressure 137/69, pulse ox 100% on nasal cannula. HEENT: Moist mucous membrane. Crowded airway. NECK: Supple. No JVD. LUNGS: Fair airflow with rhonchi. HEART: S1 and S2. ABDOMEN: Soft, nontender. No organomegaly. EXTREMITIES: Trace edema. NEUROLOGIC: Awake and alert, follows simple command. MEDICATIONS: He is on hydralazine 20 mg twice a day, Brilinta 90 mg twice day, Brovana inhaled twice a day, Claritin 10 mg daily, Dilaudid 0.5 mg every 4 hours p.r.n., vitamin D 50,000 units weekly, Ecotrin 81 mg daily, Flomax 0.4 mg daily, insulin coverage, Lipitor 40 mg daily, Lyrica 50 mg at bedtime, also on nasal saline every 2 hours p.r.n., PhosLo 2001 mg before meals t.i.d., Protonix 40 mg daily, Pulmicort inhaled twice a day, Renagel with the meals, Robitussin DM every 4 hours p.r.n., Singulair 10 mg at bedtime, Synthroid 25 mcg daily. LABORATORY DATA: Shows hemoglobin 8.8, hematocrit 27.8, WBC 4.8, and platelet count is 96. Sodium 136, potassium 5.7, chloride 96, bicarbonate 26. BUN 58, creatinine 9. Glucose 232. Calcium is 9, phosphorus 4.5, magnesium 2.8. AST 91, ALT 37, alk phos is 66. IMPRESSION AND PLAN: Status post fall with cranial bleed, severe peripheral neuropathy, nonhealing leg ulcer, chronic obstructive lung disease, obstructive sleep apnea syndrome, cardiac arrhythmia requiring pacemaker, pulmonary retention, diabetes, renal failure, dialysis dependent, activities of daily living dysfunction. The patient is being discharged home today. I have long discussion with the patient about his risk of fall. Need to use walker. Encourage home therapy. Try to avoid sedatives as much possible. Unfortunately, no choice to give him pain meds and sedative because of severe peripheral neuropathy. The patient and family understand risk of fall and bleed, chose to continue Brilinta. We will see him as outpatient if he can qualify for continue CPAP while sleeping. Thank you and follow with you. Jarred Escalera MD
[2017-08-23 17:18] LABS: HEPATITIS B SURFACE AG Negative (NEGATIVE)
[2017-08-23 17:24] LABS: HEPATITIS A IGM NEGATIVE (NEGATIVE); HEPATITIS B CORE AB NEGATIVE (NEGATIVE)
--- NOTE | 2017-08-23 17:28 | PN ---
DATE: 08/23/2017 SUBJECTIVE: The patient is seen lying in bed. He is awake, he is alert, he is comfortable. He had dialysis earlier today. He is being discharged today. PHYSICAL EXAMINATION: GENERAL: Middle-aged male lying in bed. VITAL SIGNS: Blood pressure 137/69, heart rate 85, respiratory rate 20, temperature 98.6. HEENT: Normocephalic, atraumatic. NECK: Supple, no JVD. LUNGS: Bilateral equal air entry, bilateral equal expansion, no rales. CARDIAC: S1 and S2, regular rate and rhythm, no murmur, no rub. ABDOMEN: Obese, distended, soft, nontender, bowel sounds present. EXTREMITIES: No lower extremity edema. LABORATORY DATA: WBC 4.8, hemoglobin 8.8, hematocrit 28, platelets 96. Sodium 136, potassium 5.7, chloride 96, CO2 of 26, BUN 58, creatinine 9, glucose 232, calcium 9, phosphorus 4.5, magnesium 2.4. Total bilirubin 0.7, albumin 3.8. CURRENT MEDICATIONS: Apresoline, Brilinta, Brovana, Claritin, Dilaudid 50,000 units, aspirin, Flomax, insulin, Lipitor, Lyrica, PhosLo, Protonix, Renagel, Synthroid, Ultram, and Zofran. ASSESSMENT: 1. Subdural hematoma secondary to fall. 2. Recent drug-eluting stent. 3. Autonomic dysfunction secondary to diabetes. 4. Bhi-rwikkgb-mxdmfforr diabetes mellitus. 5. Hypertension. 6. Coronary artery disease. 7. Peripheral vascular disease. 8. End-stage renal disease. PLAN: 1. The patient has been restarted on aspirin and Brilinta because of high risk for thrombosis of recent drug-eluting stent. 2. Stable dialysis today. 3. Has been cleared for discharge as per cardiology recommendations. 4. Close outpatient followup. Eva Malcolm MD
[2017-08-23 17:36] LABS: HEPATITIS C ANTIBODY NEGATIVE (NEGATIVE)
== END 2017-08-23 15:10 | disposition home health service (06) | DRG 85 ==
LOC: ED 13:58 → ERH 19:55 → CCU 08-09 00:06 → 2RNO 08-11 23:44 → 5RNO 08-17 19:14 → 2RNO 08-17 19:14 → 5RSO 08-19 15:40
PROVIDERS: ADMIT Internal Medicine; ATTEND Internal Medicine
PROC: 06HY33Z Insertion of Infusion Device into Lower Vein, Percutaneous Approach (ICD-10-PCS; 2017-08-08)
PROC: 30233R1 Transfusion of Nonautologous Platelets into Peripheral Vein, Percutaneous Approach (ICD-10-PCS; 2017-08-08)
PROC: 30233K1 Transfusion of Nonautologous Frozen Plasma into Peripheral Vein, Percutaneous Approach (ICD-10-PCS; 2017-08-09)
PROC: 5A1D70Z Performance of Urinary Filtration, Intermittent, Less than 6 Hours Per Day (ICD-10-PCS; 2017-08-09)
PROC: 05HY33Z Insertion of Infusion Device into Upper Vein, Percutaneous Approach (ICD-10-PCS; principal; 2017-08-11)
PROC: 3E0F7GC Introduction of Other Therapeutic Substance into Respiratory Tract, Via Natural or Artificial Opening (ICD-10-PCS; 2017-08-11)
PROC: 5A09357 Assistance with Respiratory Ventilation, Less than 24 Consecutive Hours, Continuous Positive Airway Pressure (ICD-10-PCS; 2017-08-14)
PROC: 5A1D70Z Performance of Urinary Filtration, Intermittent, Less than 6 Hours Per Day (ICD-10-PCS; 2017-08-14)
PROC: 4B02XSZ Measurement of Cardiac Pacemaker, External Approach (ICD-10-PCS; 2017-08-16)
PROC: 5A1D70Z Performance of Urinary Filtration, Intermittent, Less than 6 Hours Per Day (ICD-10-PCS; 2017-08-16)
PROC: 5A1D70Z Performance of Urinary Filtration, Intermittent, Less than 6 Hours Per Day (ICD-10-PCS; 2017-08-18)
PROC: 5A1D70Z Performance of Urinary Filtration, Intermittent, Less than 6 Hours Per Day (ICD-10-PCS; 2017-08-21)
PROC: 5A1D70Z Performance of Urinary Filtration, Intermittent, Less than 6 Hours Per Day (ICD-10-PCS; 2017-08-23)
DX: S06.5X0A Traumatic subdural hemorrhage without loss of consciousness, initial encounter (principal); N18.6 End stage renal disease; N25.81 Secondary hyperparathyroidism of renal origin; I12.0 Hypertensive chronic kidney disease with stage 5 chronic kidney disease or end stage renal disease; I42.9 Cardiomyopathy, unspecified; D61.818 Other pancytopenia; J44.9 Chronic obstructive pulmonary disease, unspecified; I25.10 Atherosclerotic heart disease of native coronary artery without angina pectoris; Z99.2 Dependence on renal dialysis; R29.6 Repeated falls; E11.22 Type 2 diabetes mellitus with diabetic chronic kidney disease; E11.319 Type 2 diabetes mellitus with unspecified diabetic retinopathy without macular edema; E11.21 Type 2 diabetes mellitus with diabetic nephropathy; R04.0 Epistaxis; E87.5 Hyperkalemia; H54.8 Legal blindness, as defined in USA; E66.9 Obesity, unspecified; Z68.33 Body mass index [BMI] 33.0-33.9, adult; D63.1 Anemia in chronic kidney disease; E83.39 Other disorders of phosphorus metabolism; I27.20 Pulmonary hypertension, unspecified; E11.42 Type 2 diabetes mellitus with diabetic polyneuropathy; G47.33 Obstructive sleep apnea (adult) (pediatric); E11.51 Type 2 diabetes mellitus with diabetic peripheral angiopathy without gangrene; E78.5 Hyperlipidemia, unspecified; W01.0XXA Fall on same level from slipping, tripping and stumbling without subsequent striking against object, initial encounter; Z79.4 Long term (current) use of insulin; L97.529 Non-pressure chronic ulcer of other part of left foot with unspecified severity; E11.65 Type 2 diabetes mellitus with hyperglycemia; E11.43 Type 2 diabetes mellitus with diabetic autonomic (poly)neuropathy; E78.00 Pure hypercholesterolemia, unspecified; E11.649 Type 2 diabetes mellitus with hypoglycemia without coma; E83.41 Hypermagnesemia; I08.3 Combined rheumatic disorders of mitral, aortic and tricuspid valves; Y92.89 Other specified places as the place of occurrence of the external cause; Z79.01 Long term (current) use of anticoagulants; Z91.19 Patient's noncompliance with other medical treatment and regimen; Z91.81 History of falling; Z95.5 Presence of coronary angioplasty implant and graft; Z95.0 Presence of cardiac pacemaker; Z87.891 Personal history of nicotine dependence

== ENCOUNTER 2017-08-29 21:46 | Emergency (ER) | payer MEDICARE, OTHER ==
[2017-08-29 22:00] VITALS: BMI 33.5
--- NOTE | 2017-08-29 22:31 | ED PDOC ---
Arrival/HPI - General Historian: Patient <Estela Taylor - Last Filed: 08/30/17 02:08> <Toy Pardo - Last Filed: 08/30/17 09:04> - General Chief Complaint: Lower Extremity Problem/Injury Time Seen by Provider: 08/29/17 22:10 - History of Present Illness Narrative History of Present Illness (Text): 08/29/17 22:31 52yo male with pmhx of Diabetes , hypertension, ESRD on dialysis MWF present with complaint of right 1st and 3rd toe discoloration. States he noticed the discolored toes yesterday and it became worse today. He denies pain, discharge, fever, any other complaint. (Estela Taylor) Past Medical History - Provider Review Nursing Documentation Reviewed: Yes - Past History Past History: No Previous - Infectious Disease Hx of Infectious Diseases: None - Tetanus Immunization Tetanus Immunization: Up to Date - Reproductive Currently Lactating: No - Cardiac Hx Cardiac Disorders: Yes (CAD) Hx Pacemaker: Yes - Pulmonary Hx Respiratory Disorders: Yes Hx Chronic Obstructive Pulmonary Disease (COPD): Yes - Neurological Hx Neurological Disorder: Yes Hx Transient Ischemic Attacks (TIA): Yes - HEENT Hx HEENT Disorder: Yes (BILATERAL EYE WITH BLURRY VISION) Hx Cataracts: Yes (HAD SX 05/29/12) Other/Comment: left eye cornea transplant,RENAL RETINOPATHY, glasses - Renal Hx Renal Disorder: Yes Hx Renal Failure: Yes (ESRD (on hemodialysis 3x/wk)) - Endocrine/Metabolic Hx Endocrine Disorders: Yes Hx Diabetes Mellitus Type 2: Yes - Hematological/Oncological Hx Blood Disorders: No - Integumentary Hx Dermatological Disorder: Yes (BILATERAL EDEMA TO UPPER AND LE,SKIN DRYNESS) - Musculoskeletal/Rheumatological Hx Arthritis: Yes - Gastrointestinal Hx Gastrointestinal Disorders: No - Genitourinary/Gynecological Hx Genitourinary Disorders: Yes (esrd on HD MWF) - Psychiatric Hx Psychophysiologic Disorder: Yes Hx Anxiety: Yes Hx Substance Use: No - Surgical History Hx Cardiac Catheterization: Yes Hx Cholecystectomy: Yes (08/15/12) Hx Coronary Stent: Yes (x2 monday06/13/17) Other/Comment: FISTULA/pacemaker 2 weeks ago - Anesthesia Hx Anesthesia: Yes Hx Anesthesia Reactions: No Hx Malignant Hyperthermia: No - Suicidal Assessment Feels Threatened In Home Enviroment: No <Estela Taylor - Last Filed: 08/30/17 02:08> Family/Social History - Physician Review Nursing Documentation Reviewed: Yes Family/Social History: Unknown Family HX Smoking Status: Never Smoked Hx Alcohol Use: No Hx Substance Use: No Hx Substance Use Treatment: No <Estela Taylor - Last Filed: 08/30/17 02:08> Allergies/Home Meds <Estela Taylor - Last Filed: 08/30/17 02:08> <Toy Pardo - Last Filed: 08/30/17 09:04> Allergies/Adverse Reactions: Allergies insulin aspart [From Novolog] Allergy (Intermediate, Verified 08/29/17 22:00) ITCHING ANY INSULIN THAT STARTS WITH NOV- moxifloxacin Allergy (Intermediate, Verified 08/29/17 22:00) ITCHING Penicillins Allergy (Intermediate, Verified 08/29/17 22:00) ITCHING Home Medications: Home Meds Medication Instructions Recorded Confirmed Diclofenac Sodium [Voltaren] 1 appl TOP DAILY 06/14/17 08/29/17 Ergocalciferol (Vitamin D2) 50,000 unit PO WED 06/16/17 08/29/17 [Vitamin D2] Multivitamin with Iron 1 each PO DAILY 06/16/17 08/29/17 [Multivitamins with Iron] [place]-3S/Dha/Epa/Fish Oil [Fish 2 cap PO BID 06/16/17 08/29/17 Oil [place]-3 Softgel] Bimatoprost [Lumigan] 1 drp OU HS 07/05/17 08/29/17 Cetirizine HCl [Zyrtec] 10 mg PO DAILY 07/05/17 08/29/17 Salmeterol Xinafoate/Fluticaso 1 puff IH BID 07/05/17 08/29/17 [Advair Hfa 230-21] Calcium Acetate [Phoslo] 1,334 mg PO ACTID 07/21/17 08/29/17 Pregabalin [Lyrica] 50 mg PO HS 07/25/17 08/29/17 Review of Systems - Physician Review All systems were reviewed & negative as marked: Yes - Review of Systems Constitutional: Normal Eyes: Normal ENT: Normal Respiratory: Normal Cardiovascular: Normal Gastrointestinal: Normal Genitourinary Male: Normal Musculoskeletal: Arthralgias (Right 1st and 3rd toes discoloration) Skin: Normal Neurological: Normal Endocrine: Normal Hemo/Lymphatic: Normal Psychiatric: Normal <Estela Taylor A - Last Filed: 08/30/17 02:08> Physical Exam Vital Signs Reviewed: Yes Temperature: Afebrile Blood Pressure: Normal Pulse: Regular Respiratory Rate: Normal Appearance: Positive for: Well-Appearing, Non-Toxic, Comfortable Pain Distress: None Mental Status: Positive for: Alert and Oriented X 3 - Systems Exam Head: Present: Atraumatic, Normocephalic Pupils: Present: PERRL Extroacular Muscles: Present: EOMI Conjunctiva: Present: Normal Mouth: Present: Moist Mucous Membranes Neck: Present: Normal Range of Motion Respiratory/Chest: Present: Clear to Auscultation, Good Air Exchange. No: Respiratory Distress, Accessory Muscle Use Cardiovascular: Present: Regular Rate and Rhythm, Normal S1, S2. No: Murmurs Abdomen: No: Tenderness, Distention, Peritoneal Signs Back: Present: Normal Inspection Upper Extremity: Present: Normal Inspection. No: Cyanosis, Edema Lower Extremity: Present: Normal Inspection, Normal ROM, Neurovascularly Intact , Other (Grangrenous right first and 3rd toes noted.). No: Edema, NORMAL PULSES (DEcreased on right pedis), Tenderness, Swelling, Temperature Abnormalties Neurological: Present: GCS=15, CN II-XII Intact, Speech Normal Skin: Present: Warm, Dry, Normal Color. No: Rashes Psychiatric: Present: Alert, Oriented x 3, Normal Insight, Normal Concentration <ClaudiaEstela A - Last Filed: 08/30/17 02:08> Vital Signs Temp Pulse Resp BP Pulse Ox 08/30/17 08:46 98.4 F 65 18 120/60 98 08/30/17 08:33 98.4 F 65 18 120/60 98 08/30/17 07:32 61 18 116/59 L 98 08/30/17 03:48 98.8 F 61 97 H 112/51 L 98 08/29/17 22:04 98.8 F 70 18 134/63 100 Medical Decision Making <Estela Taylor A - Last Filed: 08/30/17 02:08> <Toy Pardo - Last Filed: 08/30/17 09:04> ED Course and Treatment: 08/30/17 02:10 PT presented for stated history. He was hemodynamically stable in ED. His hyperkalemia was corrected with cocktail of medication. He is due for dialysis tomorrow, per pt. Vancomycin was ordered. Pt will need MRI to r/o osteomylitis, he had gangrenous toes. EKG pending Case was DW Dr. Kessler and she accepted pt for admission to her service. (Estela Taylor) 08/30/17 06:50 Case was d/w PMD .Pt. will require regularly scheduled HMD today not available at [facility].Pt. to be transferred to [facility] for his regularly scheduled HMD and further ongoing treatment of his presenting illness.Call placed to pts. accessories repairer . Pt. to be admitted to service. 08/30/17 07:25 Case was d/w .States he nor will be consulting on HMD pts. at [facility].Call placed to to obtain a consulting accessories repairer at [facility] when pt. arrives on transfer.Awaiting callback.Case was d/w Emergency department attending at [facility] who will receive pt. on transfer to Emergency department. (Toy Pardo) - Lab Interpretations Lab Results: 08/30/17 00:05 08/30/17 00:05 Lab Results 08/30/17 02:22: POC Glucose (mg/dL) 232 H 08/30/17 00:05: Sodium 141, Potassium 6.0 H*, Chloride 96 L, Carbon Dioxide 23, Anion Gap 28 H, BUN 79 H, Creatinine 12.5 H* D, Est GFR ( Amer) 5, Est GFR (Non-Af Amer) 4, Random Glucose 240 H, Calcium 8.7, Total Bilirubin 1.0, AST 93 H, ALT 53, Alkaline Phosphatase 76, Total Protein 8.1, Albumin 3.9, Globulin 4.2, Albumin/Globulin Ratio 0.9 L 08/30/17 00:05: PT 19.2 H, INR 1.67 H, APTT 34.8 08/30/17 00:05: WBC 8.1 D, RBC 2.98 L, Hgb 8.9 L, Hct 27.7 L, MCV 93.0, MCH 29.9, MCHC 32.1, RDW 17.5 H, Plt Count 126, MPV 12.3 H, Gran % 75.0 H, Lymph % ( Auto) 13.3 L, Nobles % (Auto) 9.9 H, Eos % (Auto) 1.4 L, Baso % (Auto) 0.4, Gran # 6.09, Lymph # (Auto) 1.1 L, Nobles # (Auto) 0.8 H, Eos # (Auto) 0.1, Baso # ( Auto) 0.03 - Medication Orders Current Medication Orders: Discontinued Medications Albuterol Sulfate (Albuterol 0.5% Inhal Jaimie (2.5 Mg/0.5 Ml) Ud) 10 mg IH STAT STA Stop: 08/30/17 01:38 Last Admin: 08/30/17 02:13 Dose: 10 mg Albuterol/Ipratropium (Duoneb 3 Mg/0.5 Mg (3 Ml) Ud) 3 ml IH [id number] CARLOS Last Admin: 08/30/17 08:41 Dose: 3 ml Aspirin (Ecotrin) 81 mg PO DAILY CARLOS Atorvastatin Calcium (Lipitor) 40 mg PO DIN [facility] Calcium Acetate (Phoslo) 1,334 mg PO ACTID [facility] Last Admin: 08/30/17 08:41 Dose: 1,334 mg Dextrose (Dextrose 50% Inj) 25 ml IVP STAT STA Stop: 08/30/17 01:34 Last Admin: 08/30/17 02:14 Dose: 25 ml IVP Administration Document 08/30/17 02:14 LA (Rec: 08/30/17 02:14 FILIPPO [id number]) Charges for Administration # of IVP Administrations 1 Ergocalciferol (Drisdol 50,000 Intl Units Cap) 1 cap PO WED CARLOS Fenofibrate (Tricor) 145 mg PO DAILY CARLOS Glipizide (Glucotrol) 5 mg PO BID [facility]OS Hydralazine HCl (Apresoline) 25 mg PO BID CARLOS Hydromorphone HCl (Dilaudid) 1 mg IVP STAT STA Stop: 08/30/17 07:30 Last Admin: 08/30/17 07:53 Dose: 1 mg MAR Pain Assessment Document 08/30/17 07:53 [facility] (Rec: 08/30/17 07:53 [facility] [id number]) Pain Reassessment Is this a pain reassessment? No Sleep Is patient sleeping during reassessment? No Presence of Pain Presence of Pain Yes Pain Scale Used Pain Scale Used Numeric Location Pain Location Body Site Leg Description Intensity of Pain at present 6 IVP Administration Document 08/30/17 07:53 LM (Rec: 08/30/17 07:53 [facility] [id number]) Charges for Administration # of IVP Administrations 1 Vancomycin HCl (Vancomycin 500mg In Ns) 500 mg in 100 mls @ 200 mls/hr IVPB STAT STA PRN Reason: Protocol Stop: 08/30/17 02:08 Last Admin: 08/30/17 02:30 Dose: 200 mls/hr eMAR Start Stop Document 08/30/17 02:30 LA (Rec: 08/30/17 02:30 LA [id number]) Intravenous Solution Start Date 08/30/17 Start Time 02:30 End Date 08/30/17 End time 03:00 Total Infusion Time 30 Insulin Human NPH (Humulin N) 90 units SC BID CARLOS Insulin Human Regular (Humulin R Med) 10 units IV ONCE STA PRN Reason: Protocol Stop: 08/30/17 01:36 Last Admin: 08/30/17 02:17 Dose: 10 units eMAR Start Stop Document 08/30/17 02:17 LA (Rec: 08/30/17 02:24 LA [id number]) Intravenous Solution Start Date 08/30/17 Start Time 02:17 MAR Blood Glucose Document 08/30/17 02:17 LA (Rec: 08/30/17 02:24 LA [id number]) Blood Glucose Finger Stick Blood Glucose (70-120) 232 Insulin Human Regular (Humulin R Low) 0 units SC ACHS CARLOS PRN Reason: Protocol Last Admin: 08/30/17 07:51 Dose: Not Given Non-Admin Reason: Blood Sugar Parameter MAR Blood Glucose Document 08/30/17 07:51 [facility] (Rec: 08/30/17 07:51 [facility] [id number]) Blood Glucose Finger Stick Blood Glucose (70-120) 84 Latanoprost (Xalatan Opht) 0 ml OU HS CARLOS Levothyroxine Sodium (Synthroid) 25 mcg PO 0600 CARLOS Last Admin: 08/30/17 06:54 Dose: 25 mcg Loratadine (Claritin) 10 mg PO DAILY CARLOS Montelukast Sodium (Singulair) 10 mg PO HS [facility] Multivitamins/Minerals (Therapeutic-M Tab) 1 tab PO DAILY [facility] Diclofenac Sodium [ Voltaren] 1 Appl ( Home Med) 1 appl TOP DAILY [facility] Salmeterol Xinafoate /Fluticaso [Advair Hfa 230-21] 1 Puff ( Home Med) 1 puff IH BID [facility] [id number] Ethyl Esters (Lovaza) 2 gm PO BID [facility] Ondansetron HCl (Zofran Inj) 4 mg IVP ONCE ONE Stop: 08/30/17 04:09 Last Admin: 08/30/17 04:10 Dose: 4 mg IVP Administration Document 08/30/17 04:10 JOLuis (Rec: 08/30/17 04:22 [id number] Charges for Administration # of IVP Administrations 1 Pantoprazole Sodium (Protonix Ec Tab) 40 mg PO 0600 CARLOS Last Admin: 08/30/17 06:54 Dose: 40 mg Pregabalin (Lyrica) 50 mg PO HS [facility] Sevelamer HCl (Renagel) 1,600 mg PO TID [facility] Sodium Chloride ([place]) 1 ml NS Q2H PRN PRN Reason: Nasal congestion Sodium Polystyrene Sulfonate (Kayexalate Susp) 30 gm PO STAT STA Stop: 08/30/17 01:39 Last Admin: 08/30/17 02:15 Dose: 30 gm Tamsulosin HCl (Flomax) 0.4 mg PO DAILY [facility] Ticagrelor (Brilinta) 90 mg PO BID [facility] - [place] / EMT I/99 / Resident Statement DAKSHA has reviewed & agrees with the documentation as recorded. DAKSHA has examined the patient and agrees with the treatment plan. <Toy Pardo - Last Filed: 08/30/17 09:04> Disposition/Present on Arrival - Present on Arrival Any Indicators Present on Arrival: No History of DVT/PE: No History of Uncontrolled Diabetes: No Urinary Catheter: No History of Decub. Ulcer: No History Surgical Site Infection Following: None - Disposition Have Diagnosis and Disposition been Completed?: Yes Disposition Time: 01:10 Patient Plan: Admission <Estela Taylor - Last Filed: 08/30/17 02:08> - Disposition Disposition Time: 07:00 <Toy Pardo - Last Filed: 08/30/17 09:04> - Disposition Diagnosis: Renal failure, Gangrene, Hyperkalemia, Diabetic toe ulcer, Diabetic foot ulcers Disposition: Transfer [facility] Condition: STABLE
[2017-08-30 01:16] LABS: INR 1.67 (0.93-1.08); PARTIAL THROMBOPLASTIN TIME 34.8 Seconds (25.1-36.5); PROTHROMBIN TIME 19.2 SECONDS (9.4-12.5)
[2017-08-30 01:21] LABS: BASO # 0.03 K/mm3 (0.0-2.0); BASO % 0.4 % (0.0-3.0); EOS # 0.1 (0.0-0.7); EOS % 1.4 % (1.5-5.0); GRAN # 6.09 (1.4-6.5); HEMOGLOBIN 8.9 g/dL (14.0-18.0); LYMPH # 1.1 (1.2-3.4); LYMPH % 13.3 % (22.0-35.0); MEAN CORPUSCULAR HEMOGLOBIN 29.9 pg (25.0-35.0); MEAN CORPUSCULAR HGB CONC 32.1 g/dl (31.0-37.0); MEAN PLATELET VOLUME 12.3 fl (7.0-11.0); MONO # 0.8 (0.1-0.6); MONO % 9.9 % (1.0-6.0); RBC 2.98 10^6/uL (3.5-6.1); RED CELL DISTRIBUTION WIDTH 17.5 % (11.5-14.5); WHITE BLOOD COUNT 8.1 10^3/ul (4.5-11.0)
[2017-08-30 01:29] LABS: ALB/GLOB RATIO 0.9 (1.1-1.8); ALBUMIN 3.9 g/dL (3.0-4.8); CALCIUM 8.7 mg/dL (8.4-10.5)
[2017-08-30] MEDS ORDERED: Dextrose 50% SYRINGE Inj (50 ml) IVP STA (01:33)
[2017-08-30] MEDS ORDERED: Insulin Reg-MEDIUM-Coverage IV STA (01:35)
[2017-08-30] MEDS ORDERED: Albuterol 0.5% Inhal Sol (2.5 mg/0.5 ml) UD IH STA (01:37)
[2017-08-30] MEDS ORDERED: Sod Polystyrene Sulf 15 gm/60 ml Susp PO STA (01:38)
[2017-08-30] MEDS ORDERED: Vancomycin 500mg in NS 500 MG/100 ML BAG IVPB STA (01:39)
[2017-08-30] MEDS ORDERED: Insulin Regular 1 UNITS/0.01 ML ML ONE (02:18)
[2017-08-30 03:48] VITALS: O2SAT 98
[2017-08-30] MEDS ORDERED: Pantoprazole 40 mg EC Tab PO SCH (06:00)
[2017-08-30] MEDS ORDERED: Levothyroxine 25 MCG TAB PO SCH (06:00)
[2017-08-30] MEDS ORDERED: HYDROmorphone 0.5 mg/0.5 ml ISec IVP STA (07:29)
[2017-08-30] MEDS ORDERED: Insulin Reg-LOW-Coverage SC SCH (07:30)
[2017-08-30 07:33] VITALS: RESP 18
[2017-08-30] MEDS ORDERED: Albuterol-Ipratrop 3 mg / 0.5 (3 ml) UD IH SCH (08:00)
[2017-08-30 08:34] VITALS: BP 120/60; PULSE 65; TEMP 98.4
[2017-08-30] MEDS ORDERED: Multivitamin With Minerals Tab PO SCH (10:00)
[2017-08-30] MEDS ORDERED: Insulin Human NPH 1 UNITS/0.01 ML SC SCH (10:00)
[2017-08-30] MEDS ORDERED: Ergocalciferol 50,000 Intl Units Cap PO SCH (10:00)
[2017-08-30] MEDS ORDERED: SALMETEROL XINAFOATE IH SCH (10:00)
[2017-08-30] MEDS ORDERED: DICLOFENAC SODIUM APPL TOP SCH (10:00)
[2017-08-30] MEDS ORDERED: FLUTICASO IH SCH (10:00)
[2017-08-30] MEDS ORDERED: Omega-3-Acid Ethyl Esters 1 GM Cap PO SCH (10:00)
--- NOTE | 2017-08-30 17:01 | CARD ---
APPROVED REPORT EKG Measurement Heart [id number] CT 168P [id number] <Conclusion> AV sequential or dual chamber electronic pacemaker
[2017-08-30] MEDS ORDERED: Latanoprost 2.5 ml Opht Soln OU SCH (22:00)
== END 2017-08-30 08:51 | disposition short-term general hospital (02) ==
LOC: ED 21:46 → ERH 08-30 00:51 → UNDOADMIN 08-30 00:51 → ERH 08-30 01:51 → ED 08-30 08:51
DX: E11.621 Type 2 diabetes mellitus with foot ulcer (principal); L97.519 Non-pressure chronic ulcer of other part of right foot with unspecified severity; E87.5 Hyperkalemia; I96 Gangrene, not elsewhere classified; I12.0 Hypertensive chronic kidney disease with stage 5 chronic kidney disease or end stage renal disease; N18.6 End stage renal disease; Z99.2 Dependence on renal dialysis; I25.10 Atherosclerotic heart disease of native coronary artery without angina pectoris
CPT/HCPCS: 80053; 82948; 85025; 85610; 85730; 87040; 93005; 96365; 96375; 99285; J1170; J2405; J3370

== ENCOUNTER 2017-09-01 16:18 | Emergency (ER) | payer MEDICARE, OTHER ==
[2017-09-01 16:19] VITALS: BMI 33.5
--- NOTE | 2017-09-01 17:10 | ED PDOC ---
Arrival/HPI - General Chief Complaint: Abnormal Skin Integrity Time Seen by Provider: 09/01/17 16:54 Historian: Patient - History of Present Illness Narrative History of Present Illness (Text): 09/01/17 17:02 52 y/o male, pmh including asthma/acs/hld/esrd (monday/monday/monday), allergic to penicillin and fluoroquinolones, has packing on the rt. nostril for epistaxis that stated that it was place 24 hours ago, here for the rt. foot infection with blisters x 3 days. Pt. stated that he was seen by Dr. Villanueva today and told to come to the ER for admission for IV antibiotic, last dialysis was today and next dialysis is upcoming monday which is 2 days from today, out patient therapist is Dr. Malcolm, no fever or chills. Pt. stated that he noticed the rt. foot blister and foul smell about 3 days ago by a friend, been having redness on the rt. foot, no chills, no night sweat, no chest pain or shortness of breath, no other medical or psychological complaints. Past Medical History - Provider Review Nursing Documentation Reviewed: Yes - Past History Past History: No Previous - Infectious Disease Hx of Infectious Diseases: None - Tetanus Immunization Tetanus Immunization: Up to Date - Reproductive Currently Lactating: No - Cardiac Hx Congestive Heart Failure: Yes Hx Hypertension: Yes Hx Pacemaker: Yes Hx Peripheral Edema: Yes - Pulmonary Hx Asthma: Yes Hx Bronchitis: Yes Hx Chronic Obstructive Pulmonary Disease (COPD): Yes Hx Pneumonia: Yes Hx Sleep Apnea: Yes (c pap 2) - Neurological Hx Transient Ischemic Attacks (TIA): Yes - HEENT Hx HEENT Disorder: Yes (BILATERAL EYE WITH BLURRY VISION) Hx Cataracts: Yes (HAD SX 05/29/12) Other/Comment: left eye cornea transplant,RENAL RETINOPATHY, glasses - Renal Hx Renal Disorder: Yes Type of Dialysis Access: LORRAINE AV shunt Date of Last Dialysis Treatment: 09/01/17 Hx Kidney Stones: Yes (04/03) - Endocrine/Metabolic Hx Endocrine Disorders: Yes Hx Diabetes Mellitus Type 2: Yes - Hematological/Oncological Hx Anemia: Yes (With transfusions) - Integumentary Hx Dermatological Disorder: Yes (BILATERAL EDEMA TO UPPER AND LE,SKIN DRYNESS) - Musculoskeletal/Rheumatological Hx Arthritis: Yes Hx Falls: No Hx Fractures: Yes (L arm) - Gastrointestinal Hx Gall Bladder Disease: Yes (CHOLECYSTECTOMY) Hx Pancreatitis: Yes - Genitourinary/Gynecological Hx Genitourinary Disorders: Yes (esrd on HD MWF) - Psychiatric Hx Anxiety: Yes Hx Substance Use: No - Surgical History Hx Cholecystectomy: Yes (08/15/12) Hx Coronary Stent: Yes (x2 monday06/13/17) - Anesthesia Hx Anesthesia: Yes Hx Anesthesia Reactions: No Hx Malignant Hyperthermia: No - Suicidal Assessment Feels Threatened In Home Enviroment: No Family/Social History - Physician Review Nursing Documentation Reviewed: Yes Family/Social History: Unknown Family HX Smoking Status: Never Smoked Hx Alcohol Use: No Hx Substance Use: No Hx Substance Use Treatment: No Allergies/Home Meds Allergies/Adverse Reactions: Allergies insulin aspart [From Novolog] Allergy (Intermediate, Verified 08/30/17 09:48) ITCHING ANY INSULIN THAT STARTS WITH NOV- moxifloxacin Allergy (Intermediate, Verified 08/30/17 09:48) ITCHING Penicillins Allergy (Intermediate, Verified 08/30/17 09:48) ITCHING Home Medications: Home Meds Medication Instructions Recorded Confirmed Diclofenac Sodium [Voltaren] 1 appl TOP DAILY 06/14/17 09/02/17 Ergocalciferol (Vitamin D2) 50,000 unit PO WED 06/16/17 09/02/17 [Vitamin D2] Multivitamin with Iron 1 each PO DAILY 06/16/17 09/02/17 [Multivitamins with Iron] [place]-3S/Dha/Epa/Fish Oil [Fish 2 cap PO BID 06/16/17 09/02/17 Oil [place]-3 Softgel] Bimatoprost [Lumigan] 1 drp OU HS 07/05/17 09/02/17 Cetirizine HCl [Zyrtec] 10 mg PO DAILY 07/05/17 09/02/17 Salmeterol Xinafoate/Fluticaso 1 puff IH BID 07/05/17 09/02/17 [Advair Hfa 230-21] Calcium Acetate [Phoslo] 1,334 mg PO ACTID 07/21/17 09/02/17 Pregabalin [Lyrica] 50 mg PO HS 07/25/17 09/02/17 Insulin Human Regular [HumuLIN R] 2 units SC BID 06/16/18 06/16/18 Review of Systems - Review of Systems Constitutional: absent: Fatigue, Fevers Eyes: absent: Vision Changes ENT: absent: Hearing Changes Respiratory: absent: SOB, Cough Cardiovascular: absent: Chest Pain Gastrointestinal: absent: Abdominal Pain, Nausea, Vomiting Skin: Rash, Skin Lesions, Cellulitis. absent: Pruritis, Laceration, Abscess, Ulcer Neurological: absent: Headache, Dizziness Psychiatric: absent: Anxiety, Depression, Suicidal Ideation Physical Exam Vital Signs Reviewed: Yes Vital Signs Temp Pulse Resp BP Pulse Ox 09/01/17 21:30 59 L 18 126/62 100 09/01/17 16:19 98.4 F 66 18 119/62 99 Temperature: Afebrile Blood Pressure: Normal Pulse: Regular Respiratory Rate: Normal Appearance: Positive for: Well-Appearing, Non-Toxic, Comfortable Pain Distress: Moderate Mental Status: Positive for: Alert and Oriented X 3 - Systems Exam Head: Present: Atraumatic, Normocephalic Pupils: Present: PERRL, Other (cataract eyes noted) Extroacular Muscles: Present: EOMI Conjunctiva: Present: Normal Mouth: Present: Moist Mucous Membranes Nose (External): Present: Atraumatic. No: Abrasion, Contusion, Laceration, Lesions Nose (Internal): Present: Other (visible rt. nostril packed with rapid rhino with no active bleeding. ) Neck: Present: Normal Range of Motion Respiratory/Chest: Present: Clear to Auscultation, Good Air Exchange. No: Respiratory Distress, Accessory Muscle Use Cardiovascular: Present: Regular Rate and Rhythm, Normal S1, S2. No: Murmurs Abdomen: No: Tenderness, Distention, Peritoneal Signs Back: Present: Normal Inspection Upper Extremity: Present: Normal Inspection. No: Cyanosis, Edema Lower Extremity: Present: Normal Inspection, Other (RLE: no bony tenderness or swelling to the rt. foot and 5 toes, visible blisters ruptured on the rt. foot 1st and 3rd toe with cellulitis noted on the dorsum aspect of the foot streaking up to the right calf region, negative lemus and renny sign, +DPPT pulses, neurovascular intact. ). No: Edema Neurological: Present: GCS=15, CN II-XII Intact, Speech Normal, Motor Func Grossly Intact, Memory Normal Skin: Present: Warm, Dry, Normal Color. No: Rashes Psychiatric: Present: Alert, Oriented x 3, Normal Insight, Normal Concentration Medical Decision Making ED Course and Treatment: 09/01/17 17:32 -labs/blood culture -RLE Venuous doppler -Rt. foot xray -Chest xray -leave packing in the rt. nostril for additional 24 hours as this inserted 24 hours ago as per patient. -IV vancomycin/meropenen/morphine 4mg IV -Observe and reassess 09/01/17 19:24 -There is no dialysis available at this facility, so patient will be admitted to the [facility] -Chest xray No poor inspiration with low lung volumes, crowded bronchovascular markings and mild right basilar atelectasis -Rt. foot xray: No definitive cortical destructive changes. Old healed fracture deformities distal aspect proximal phalanx 2nd toe and midshaft right 5th metatarsal. -RLE Venuous doppler: as per preliminary report, no acute DVT -Labs show no acute findings compared with previous labs Hgb 9.2 from 8.9, BUN 27 from 79, Creatine 5.2 from 12.5 -Pt. awared of the plan of the transfer, feels well and agreed on the transfer. -Time Buyer Dr. Malcolm is cover by Dr. Martinez, Dr. Martinez stated that he doesn't go to the [facility]/doesn't wanna manage this case at [facility] so I would deferred it to pmd Dr. Kessler for her choice of out patient therapist for future dialysis. -Dr. Kessler pagemike, discussed about the case/labs and situation with the out patient therapist situation, stated that to transfer the patient to [facility] ER and tell the [facility] ER to call her once the patient arrived, Dr. Kessler will pick her own consult for out patient therapist and photographic engineer (dr. chauhan?). -I spoke to the [facility] ER doctor Dr. Goodrich, discussed about the case and situation, will notify Dr. Kessler once the patient arrive in their ER. They agreed to accept this transfer. -Case discussed with ER Attending Dr. Pinon/Dr. Arroyo (ER Director), agreed on this transfer and plan of care. - Lab Interpretations Lab Results: 09/01/17 18:35 09/01/17 18:35 Lab Results 09/01/17 18:35: PT 18.9 H, INR 1.64 H, APTT 32.8 09/01/17 18:35: WBC 4.8 D, RBC 3.05 L, Hgb 9.1 L, Hct 28.1 L, MCV 92.1, MCH 29.8, MCHC 32.4, RDW 17.4 H, Plt Count 131, MPV 11.1 H, Gran % 65.2, Lymph % ( Auto) 18.6 L, Shannon % (Auto) 12.9 H, Eos % (Auto) 2.9, Baso % (Auto) 0.4, Gran # 3.12, Lymph # (Auto) 0.9 L, Shannon # (Auto) 0.6, Eos # (Auto) 0.1, Baso # (Auto) 0.02 09/01/17 18:35: Sodium 141, Potassium 4.1, Chloride 94 L, Carbon Dioxide 35 H, Anion Gap 16, BUN 27 H, Creatinine 5.2 H, Est GFR ( Amer) 14, Est GFR ( Non-Af Amer) 12, Random Glucose 211 H, Calcium 8.5, Magnesium 2.1, Total Bilirubin 1.2, AST 107 H, ALT 54, Alkaline Phosphatase 84, Total Creatine Kinase 518 H, CK-MB (CK-2) 9.9 H, CK-MB (CK-2) % 1.9 L, Total Protein 8.3, Albumin 3.8, Globulin 4.6, Albumin/Globulin Ratio 0.8 L I have reviewed the lab results: Yes - RAD Interpretation Radiology Orders: 09/01/17 17:18 FOOT RIGHT 3 VIEWS ROUTINE [RAD] Stat DUPLEX LOWER EXTRM VEIN RIGHT [US] Stat 09/01/17 17:21 CHEST PORTABLE [RAD] Stat Chest xray HISTORY: medical clearance COMPARISON: Comparison chest 08/16/17 FINDINGS: LUNGS: Poor inspiration with low lung volumes, crowded bronchovascular markings and mild right basilar atelectasis. Left lung base poorly seen due to large body habitus and overlying cardiac silhouette PLEURA: No significant pleural effusion identified, no pneumothorax apparent. CARDIOVASCULAR: Cardiomegaly. No change bipolar pacemaker OSSEOUS STRUCTURES: No significant abnormalities. VISUALIZED UPPER ABDOMEN: Normal. OTHER FINDINGS: None. IMPRESSION: No poor inspiration with low lung volumes, crowded bronchovascular markings and mild right basilar atelectasis Lt. foot xray PROCEDURE: Right Foot Radiographs. HISTORY: Right foot cellulitis COMPARISON: Comparison made with radiographs of the right foot dated 07/21/2017 the the FINDINGS: BONES: No definitive evidence of acute displaced fracture dislocation. No obvious cortical destructive changes. Apparent old healed fracture deformity distal aspect proximal phalanx 2nd toe and suspected healed fracture deformity right 5th metatarsal suspected JOINTS: Mild multi articular degenerative osteoarthritis SOFT TISSUES: There appears be soft tissue swelling about the great toe which could represent cellulitis OTHER FINDINGS: None. IMPRESSION: Findings suggest cellulitis right great toe. No definitive cortical destructive changes. Old healed fracture deformities distal aspect proximal phalanx 2nd toe and midshaft right 5th metatarsal. 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 - Medication Orders Current Medication Orders: Discontinued Medications Vancomycin HCl (Vancomycin 1gm) 1 gm in 250 mls @ 167 mls/hr IVPB STAT STA PRN Reason: Protocol Stop: 09/01/17 18:41 Last Admin: 09/01/17 21:33 Dose: 167 mls/hr eMAR Start Stop Document 09/01/17 21:33 ALVARADO (Rec: 09/01/17 21:34 ALVARADO [id number]) Intravenous Solution Start Date 09/01/17 Start Time 19:18 End Date 09/01/17 End time 20:48 Total Infusion Time 90 Meropenem (Merrem Iv 1 Gm Premix) 50 mls @ 100 mls/hr IVPB STAT CARLOS PRN Reason: Protocol Last Admin: 09/01/17 19:07 Dose: 100 mls/hr eMAR Start Stop Document 09/01/17 19:07 [email or web address] (Rec: 09/01/17 19:07 CASTS1 [id number]) Intravenous Solution Start Date 09/01/17 Start Time 19:07 Morphine Sulfate (Morphine) 4 mg IVP STAT STA Stop: 09/01/17 17:13 Last Admin: 09/01/17 19:07 Dose: 4 mg MAR Pain Assessment Document 09/01/17 19:07 [email or web address] (Rec: 09/01/17 19:08 [email or web address] [id number]) Pain Reassessment Is this a pain reassessment? No Sleep Is patient sleeping during reassessment? No Presence of Pain Presence of Pain Yes Pain Scale Used Pain Scale Used Numeric Location Pain Location Body Site Generalized Description Description Constant Intensity of Pain at present 7 Pain Behavior Facial Grimacing Aggravating Factors Changing Position Alleviating Factors/Management Medication Techniques Alleviating Factors Medication IVP Administration Document 09/01/17 19:07 [email or web address] (Rec: 09/01/17 19:08 CASTS1 [id number]) Charges for Administration # of IVP Administrations 1 - PA / FLOODPLAIN MANAGER / Resident Statement MD/DO has reviewed & agrees with the documentation as recorded. Disposition/Present on Arrival - Present on Arrival Any Indicators Present on Arrival: No History of DVT/PE: No History of Uncontrolled Diabetes: No Urinary Catheter: No History of Decub. Ulcer: No History Surgical Site Infection Following: None - Disposition Have Diagnosis and Disposition been Completed?: Yes Diagnosis: Cellulitis, ESRD (end stage renal disease) Disposition: Transfer [facility] Disposition Time: 17:33 Patient Plan: Admission, Transfer To ([facility] for admission for IV antibiotic and dialysis) Patient Problems: Current Active Problems Problem Status Onset Cellulitis Acute ESRD (end stage renal disease) on dialysis Acute Condition: GUARDED Discharge Instructions (ExitCare): Cellulitis (ED) Referrals: Diana Kessler MD [Primary Care Provider] - Follow up with primary Forms: [employer] (Austrian)
[2017-09-01] MEDS ORDERED: Morphine 4 mg/ml ISec IVP STA (17:12)
[2017-09-01] MEDS ORDERED: Vancomycin 1gm in NS 250ml 1 GM/250 ML BAG IVPB STA (17:12)
[2017-09-01] MEDS ORDERED: Meropenem IV 1 gm in NS 50 ML IVPB SCH (17:30)
[2017-09-01 18:18] VITALS: RESP 18; TEMP 98.4
[2017-09-01 18:58] LABS: BASO # 0.02 K/mm3 (0.0-2.0); BASO % 0.4 % (0.0-3.0); EOS # 0.1 (0.0-0.7); EOS % 2.9 % (1.5-5.0); GRAN # 3.12 (1.4-6.5); GRAN % 65.2 % (50.0-68.0); HEMOGLOBIN 9.1 g/dL (14.0-18.0); LYMPH # 0.9 (1.2-3.4); LYMPH % 18.6 % (22.0-35.0); MEAN CELL VOLUME 92.1 fl (80.0-105.0); MEAN CORPUSCULAR HEMOGLOBIN 29.8 pg (25.0-35.0); MEAN CORPUSCULAR HGB CONC 32.4 g/dl (31.0-37.0); MEAN PLATELET VOLUME 11.1 fl (7.0-11.0); MONO # 0.6 (0.1-0.6); MONO % 12.9 % (1.0-6.0); RBC 3.05 10^6/uL (3.5-6.1); RED CELL DISTRIBUTION WIDTH 17.4 % (11.5-14.5); WHITE BLOOD COUNT 4.8 10^3/ul (4.5-11.0)
[2017-09-01 19:05] LABS: INR 1.64 (0.93-1.08); PARTIAL THROMBOPLASTIN TIME 32.8 Seconds (25.1-36.5); PROTHROMBIN TIME 18.9 SECONDS (9.4-12.5)
[2017-09-01 19:07] LABS: ALB/GLOB RATIO 0.8 (1.1-1.8); ALBUMIN 3.8 g/dL (3.0-4.8); CALCIUM 8.5 mg/dL (8.4-10.5)
[2017-09-01 19:21] LABS: CK MB% 1.9 % (2.5-3.0); CK-MB 9.9 ng/mL (0.0-3.6)
[2017-09-02 00:25] VITALS: BP 126/62; PULSE 59; O2SAT 100
--- NOTE | 2017-09-02 08:12 | US ---
PROCEDURE: Right lower extremity venous US HISTORY: Leg pain and swelling. Evaluate for DVT. PHYSICIAN(S): Alfredo Wynn M.D. TECHNIQUE: Duplex sonography and color-flow Doppler with graded compression were used to evaluate the deep venous system of the right lower extremity. FINDINGS: The visualized deep venous system of the right lower extremity is sonographically normal and compressible. Normal waveforms and augmentation are seen. There is no sonographic evidence for deep venous thrombosis in the visualized segments of the right lower extremity. IMPRESSION: 1. No sonographic evidence for deep venous thrombosis in the visualized segments of the right lower extremity.
--- NOTE | 2017-09-02 10:02 | RAD ---
HISTORY: medical clearance COMPARISON: Comparison chest 08/16/17 FINDINGS: LUNGS: Poor inspiration with low lung volumes, crowded bronchovascular markings and mild right basilar atelectasis. Left lung base poorly seen due to large body habitus and overlying cardiac silhouette PLEURA: No significant pleural effusion identified, no pneumothorax apparent. CARDIOVASCULAR: Cardiomegaly. No change bipolar pacemaker OSSEOUS STRUCTURES: No significant abnormalities. VISUALIZED UPPER ABDOMEN: Normal. OTHER FINDINGS: None. IMPRESSION: No poor inspiration with low lung volumes, crowded bronchovascular markings and mild right basilar atelectasis
--- NOTE | 2017-09-02 10:21 | RAD ---
PROCEDURE: Right Foot Radiographs. HISTORY: Right foot cellulitis COMPARISON: Comparison made with radiographs of the right foot dated 07/21/2017 the the FINDINGS: BONES: No definitive evidence of acute displaced fracture dislocation. No obvious cortical destructive changes. Apparent old healed fracture deformity distal aspect proximal phalanx 2nd toe and suspected healed fracture deformity right 5th metatarsal suspected JOINTS: Mild multi articular degenerative osteoarthritis SOFT TISSUES: There appears be soft tissue swelling about the great toe which could represent cellulitis OTHER FINDINGS: None. IMPRESSION: Findings suggest cellulitis right great toe. No definitive cortical destructive changes. Old healed fracture deformities distal aspect proximal phalanx 2nd toe and midshaft right 5th metatarsal. . Note that this report was placed in PA review folder for followup
== END 2017-09-01 21:30 | disposition short-term general hospital (02) ==
LOC: ED 16:18
DX: L03.115 Cellulitis of right lower limb (principal); I12.0 Hypertensive chronic kidney disease with stage 5 chronic kidney disease or end stage renal disease; E11.22 Type 2 diabetes mellitus with diabetic chronic kidney disease; N18.6 End stage renal disease; Z99.2 Dependence on renal dialysis
CPT/HCPCS: 71045; 73630; 80053; 82550; 82553; 83735; 85025; 85610; 85730; 87040; 93971; 96365; 96375; 99283; J2185; J2270

== ENCOUNTER 2017-09-13 06:09 | Day surgery (SDC) | payer MEDICARE, OTHER ==
[2017-09-01 21:54] VITALS: BMI 33.5
[2017-09-13 06:57] LABS: BASO # 0.03 K/mm3 (0.0-2.0); BASO % 0.3 % (0.0-3.0); EOS # 0.2 (0.0-0.7); EOS % 1.4 % (1.5-5.0); GRAN # 8.78 (1.4-6.5); GRAN % 79.1 % (50.0-68.0); LYMPH # 1.2 (1.2-3.4); LYMPH % 11.1 % (22.0-35.0); MEAN CELL VOLUME 90.4 fl (80.0-105.0); MEAN CORPUSCULAR HEMOGLOBIN 28.7 pg (25.0-35.0); MEAN CORPUSCULAR HGB CONC 31.7 g/dl (31.0-37.0); MEAN PLATELET VOLUME 11.8 fl (7.0-11.0); MONO # 0.9 (0.1-0.6); MONO % 8.1 % (1.0-6.0); RBC 3.14 10^6/uL (3.5-6.1); RED CELL DISTRIBUTION WIDTH 16.7 % (11.5-14.5); WHITE BLOOD COUNT 11.1 10^3/ul (4.5-11.0)
[2017-09-13] MEDS ORDERED: Iodixanol 320 MG/ML 200 ML BOTTLE IV ONE (07:10)
[2017-09-13] MEDS ORDERED: Nitroglycerin 50mg in D5W 50 MG/250 ML BOTTLE IV ONE (07:10)
[2017-09-13] MEDS ORDERED: Lidocaine 2% Inj (20ml) ONE (07:10)
[2017-09-13] MEDS ORDERED: Iodixanol 320 mg/ml 150 ml Bottle IV ONE (07:10)
[2017-09-13 07:14] LABS: INR 1.59 (0.93-1.08); PARTIAL THROMBOPLASTIN TIME 32.2 Seconds (25.1-36.5); PROTHROMBIN TIME 18.4 SECONDS (9.4-12.5)
[2017-09-13] MEDS ORDERED: Midazolam 2 MG/2 ML VIAL ONE (08:13)
[2017-09-13 11:14] VITALS: RESP 18; TEMP 97.4
[2017-09-13 11:42] VITALS: PULSE 60; O2SAT 96
[2017-09-13 12:47] VITALS: BP 119/55
--- NOTE | 2017-09-13 19:00 | VASCULAR ---
PROCEDURE: 1. Abdominal aortogram and bilateral lower extremity runoff with right selective views. 2. Distal right anterior tibial artery angioplasty HISTORY: End-stage renal disease. Severe peripheral vascular disease. Extensive gangrene right forefoot PHYSICIAN(S): Alfredo Wynn M.D. TECHNIQUE: The relative risks and indications of the procedure were explained to the patient and consent obtained. The patient was placed supine on the arteriogram table and the left groin prepped and draped in the usual sterile fashion. Conscious sedation and monitoring were provided throughout the procedure by a nurse. Via a left common femoral artery approach, a 5 Bulgarian sheath was placed in the left groin. Through the sheath and over a guidewire, a 5 Bulgarian flush catheter was placed in the abdominal aorta at the level of the renal arteries and a PA DSA abdominal aortogram performed. The catheter was pulled down to the aortic bifurcation and bilateral oblique DSA pelvic arteriograms performed. Overlapping bilateral lower extremity DSA arteriograms were obtained from the inguinal ligaments to the ankles. A 0.035 angled Glidewire was advanced over the bifurcation and placed in the distal right SFA. A 7 Bulgarian 90 cm Rabbe sheath was placed in the right popliteal artery. Heparin 5000 units IV and nitroglycerin in 250 mcg aliquots were given. The distal occlusion in the right anterior tibial artery was crossed rather easily with a 0.018 catheter. Exchange was made for a 0.014 support guidewire. The distal right anterior tibial artery was dilated with a 3.5 x 120 angioplasty balloon. An excellent angiographic result was obtained with brisk flow. No stent was required.. The sheath was removed and hemostasis obtained with a Perclose device. The patient tolerated the procedure well. FINDINGS: The proximal renal arteries are patent. The nephrograms are not present, consistent with the patient's history for dialysis. Diffuse smooth vascular calcification seen. The infrarenal abdominal aorta is widely patent without a radiographically significant stenosis. The aortic bifurcation is widely patent. The common and external iliac arteries are normal in appearance without a significant stenosis. The internal iliac arteries are patent bilaterally. Right lower extremity: The right common femoral artery is patent. The right profunda femoral artery is patent. The right superficial femoral artery is patent and continuous without a radiographically significant stenosis. The right popliteal artery and trifurcation are patent. There is a 5 cm occlusion of the distal right anterior tibial artery. The right dorsalis pedis artery is large and supplies the superficial arch. There is extensive occlusive disease of the foot and plantar arch Left lower extremity: Left common femoral artery is patent. The left profunda femoral artery is patent. The left superficial femoral artery is patent and continuous without a radiographically significant stenosis. The left popliteal artery and trifurcation are patent.The 3 right tibial vessels are patent and continuous to the ankle IMPRESSION: 1.Short segment calcified occlusion of the distal right anterior tibial artery. 2. Successful distal right anterior tibial artery angioplasty. 3. Extensive right pedal occlusive disease. The disc dialysis pedis artery and superficial arch are patent 3.
== END 2017-09-13 12:40 | disposition home or self-care (01) ==
LOC: SDSVAS 06:09
PROVIDERS: ATTEND Radiology Vascular & Interventional Radiology
DX: I70.261 Atherosclerosis of native arteries of extremities with gangrene, right leg (principal); E11.52 Type 2 diabetes mellitus with diabetic peripheral angiopathy with gangrene; N18.6 End stage renal disease; E11.22 Type 2 diabetes mellitus with diabetic chronic kidney disease; I13.2 Hypertensive heart and chronic kidney disease with heart failure and with stage 5 chronic kidney disease, or end stage renal disease; I50.9 Heart failure, unspecified; I25.10 Atherosclerotic heart disease of native coronary artery without angina pectoris
CPT/HCPCS: 36415; 37228; 75625; 75716; 80048; 85025; 85610; 85730; 99152; 99153; C1725 ×2; C1760 ×2; C1769 ×4; C1885; C1887; C1894; J1644 ×2; J2250; J2405; J3010; J7030; Q9966; Q9967

== ENCOUNTER 2017-09-17 19:05 | Emergency (ER) | payer MEDICARE, OTHER ==
[2017-09-17 19:06] VITALS: BMI 33.5
[2017-09-17] MEDS ORDERED: Vancomycin 1gm in NS 250ml 1 GM/250 ML BAG IVPB STA (19:50)
[2017-09-17] MEDS ORDERED: Aztreonam 1 Gm in NS 100mL 100 ML IVPB STA (19:53)
--- NOTE | 2017-09-17 20:46 | ED PDOC ---
Arrival/HPI - General Chief Complaint: Chest Pain Time Seen by Provider: 09/17/17 19:45 Historian: Patient - History of Present Illness Narrative History of Present Illness (Text): 09/17/17 19:45 A 52 year old male, whose past medical history includes ESRD on dialysis ( sessions //Mon), CHF. COPD, diabetes, hypertension, and pancreatitis, presents to the emergency department complaining of fever, chills, and slight shortness of breath. Patient was seen here in the ER yesterday and diagnosed with cellulitis. Patient was advised at the time to be transferred to [facility] for dialysis. However patient refused and signed out against medical advice. Today patient returns to the ER with similar complaints as yesterday. Patient denies any chest pain, nausea, vomiting, diarrhea, or any other complaints at this time. PMD: Dr. Kessler Past Medical History - Provider Review Nursing Documentation Reviewed: Yes - Past History Past History: No Previous - Infectious Disease Hx of Infectious Diseases: None - Tetanus Immunization Tetanus Immunization: Up to Date - Reproductive Currently Lactating: No - Cardiac Hx Pacemaker: Yes (MEDTRONIC) - Pulmonary Hx Chronic Obstructive Pulmonary Disease (COPD): Yes - Neurological Hx Paralysis: No - HEENT Hx HEENT Disorder: Yes (BILATERAL EYE WITH BLURRY VISION) Hx Cataracts: Yes (HAD SX 05/29/12) Other/Comment: left eye cornea transplant,RENAL RETINOPATHY, glasses - Renal Hx Dialysis: Yes Date of Last Dialysis Treatment: 09/17/17 - Endocrine/Metabolic Hx Diabetes Mellitus Type 2: Yes - Hematological/Oncological Hx Blood Transfusions: Yes (5 YRS AGO) Hx Blood Transfusion Reaction: No - Integumentary Hx Dermatological Disorder: Yes (BILATERAL EDEMA TO UPPER AND LE,SKIN DRYNESS) - Musculoskeletal/Rheumatological Hx Musculoskeletal Disorders: Yes - Gastrointestinal Hx Gall Bladder Disease: Yes (CHOLECYSTECTOMY) Hx Pancreatitis: Yes - Genitourinary/Gynecological Hx Genitourinary Disorders: Yes (esrd on HD MWF) - Psychiatric Hx Emotional Abuse: No Hx Physical Abuse: No Hx Substance Use: No - Surgical History Hx Cholecystectomy: Yes (08/15/12) Hx Coronary Stent: Yes (monday06/13/17) - Anesthesia Hx Anesthesia Reactions: No Hx Malignant Hyperthermia: No - Suicidal Assessment Feels Threatened In Home Enviroment: No Family/Social History - Physician Review Nursing Documentation Reviewed: Yes Family/Social History: No Known Family HX Smoking Status: Never Smoked Hx Alcohol Use: No Hx Substance Use: No Hx Substance Use Treatment: No Allergies/Home Meds Allergies/Adverse Reactions: Allergies insulin aspart [From Novolog] Allergy (Intermediate, Verified 09/12/17 11:30) RASH ANY INSULIN THAT STARTS WITH NOV- moxifloxacin Allergy (Intermediate, Verified 09/12/17 11:30) RASH Penicillins Allergy (Intermediate, Verified 09/12/17 11:30) RASH Home Medications: Home Meds Medication Instructions Recorded Confirmed Diclofenac Sodium [Voltaren] 1 appl TOP DAILY 06/14/17 09/17/17 Ergocalciferol (Vitamin D2) 50,000 unit PO WED 06/16/17 09/17/17 [Vitamin D2] Multivitamin with Iron 1 each PO DAILY 06/16/17 09/17/17 [Multivitamins with Iron] Dalton-3S/Dha/Epa/Fish Oil [Fish 2 cap PO BID 06/16/17 09/17/17 Oil Dalton-3 Softgel] Bimatoprost [Lumigan] 1 drp OU HS 07/05/17 09/17/17 Cetirizine HCl [Zyrtec] 10 mg PO DAILY 07/05/17 09/17/17 Salmeterol Xinafoate/Fluticaso 1 puff IH BID 07/05/17 09/17/17 [Advair Hfa 230-21] Calcium Acetate [Phoslo] 1,334 mg PO ACTID 07/21/17 09/17/17 Pregabalin [Lyrica] 50 mg PO HS 07/25/17 09/17/17 Insulin Human Regular [HumuLIN R] 2 units SC QPM 09/02/17 09/17/17 Insulin Human NPH [Humalin N] 60 units SC QPM 09/12/17 09/17/17 Metoprolol Tartrate [Lopressor] 50 mg PO QPM 09/12/17 09/17/17 Review of Systems - Physician Review All systems were reviewed & negative as marked: Yes - Review of Systems Constitutional: Fevers, Night Sweats Respiratory: SOB (slightly) Cardiovascular: absent: Chest Pain Gastrointestinal: absent: Diarrhea, Nausea, Vomiting Physical Exam Vital Signs Reviewed: Yes Vital Signs Temp Pulse Resp BP Pulse Ox 09/17/17 22:08 68 18 100/45 L 97 09/17/17 22:07 68 18 100/45 L 98 09/17/17 19:21 99.5 F 73 20 116/55 L 97 Temperature: Afebrile Blood Pressure: Normal Pulse: Regular Respiratory Rate: Normal Appearance: Positive for: Well-Appearing Pain Distress: None Mental Status: Positive for: Alert and Oriented X 3 - Systems Exam Head: Present: Atraumatic, Normocephalic Pupils: Present: PERRL Extroacular Muscles: Present: EOMI Conjunctiva: Present: Normal Mouth: Present: Moist Mucous Membranes Neck: Present: Normal Range of Motion Respiratory/Chest: Present: Clear to Auscultation, Good Air Exchange. No: Respiratory Distress, Accessory Muscle Use Cardiovascular: Present: Regular Rate and Rhythm, Normal S1, S2. No: Murmurs Abdomen: No: Tenderness, Distention, Peritoneal Signs Back: Present: Normal Inspection Upper Extremity: Present: Normal Inspection. No: Cyanosis, Edema Lower Extremity: Present: Erythema (right foot and lower leg), Neurovascularly Intact, Other (surgical wound to right home distally with ulcer) Neurological: Present: GCS=15, CN II-XII Intact, Speech Normal Skin: Present: Warm, Dry, Normal Color. No: Rashes Psychiatric: Present: Alert, Oriented x 3, Normal Insight, Normal Concentration Medical Decision Making ED Course and Treatment: 09/17/17 19:50 Impression: 52 year old male with fever, chills, and slight shortness of breath. Plan: -- EKG -- Chest X-ray -- Labs -- Venous Blood Gas -- Aztrenam -- Vancomycin -- Blood Culture -- Urine Culture -- Urinalysis -- Reassess and disposition Prior Visits: Notes and results from previous visits were reviewed. Patient was last seen in the emergency department on 09/17/2017 at 01:13 for generalized malaise, shortness of breath and chills. Patient left against medical advice. Progress Notes: EKG: Ordered, reviewed, and independently interpreted the EKG. Rate : 73 BPM Rhythm : Pacemaker Interpretation : No ST-segment elevations or depressions, no T-wave inversions, normal intervals. Comparison : No previous EKG for comparison. 09/17/2017 20:[address] Wells, ED attending at [facility]. who accepts patient to emergency department transfer.Case discussed as well with Dr. Checo TRUJILLO who accepts and air surveillance operator . 09/17/17 21:57 CXR reviewed, shows no acute processes. - Lab Interpretations Lab Results: 09/17/17 20:10 09/17/17 20:10 Lab Results 09/17/17 20:10: Sodium 136, Chloride 90 L, Potassium 5.0, Carbon Dioxide 29, Anion Gap 21 H, BUN 51 H, Creatinine 8.1 H* D, Est GFR ( Amer) 8, Est GFR (Non-Af Amer) 7, Random Glucose 214 H, Calcium 9.0, Phosphorus 3.9, Magnesium 2.2, Total Bilirubin 1.8 H, AST 93 H, ALT 30, Alkaline Phosphatase 83 , NT-Pro-B Natriuret Pep Pending, Total Protein 8.1, Albumin 3.6, Globulin 4.6, Albumin/Globulin Ratio 0.8 L 09/17/17 20:10: pO2 27 L, VBG pH 7.42, VBG pCO2 47.0, VBG HCO3 30.5 H, VBG Total CO2 31.9 H, VBG O2 Sat (Calc) 58.7, VBG Base Excess 5.1 H, VBG Potassium 4.9, Sodium 132.0, Chloride 93.0 L, Glucose 218 H, Lactate 2.3 H, FiO2 21.0, Venous Blood Potassium 4.9 09/17/17 20:10: PT 24.6 H, INR 2.12 H, APTT 33.0 09/17/17 20:10: WBC 12.6 H, RBC 3.20 L, Hgb 9.3 L, Hct 28.3 L, MCV 88.4, MCH 29.1, MCHC 32.9, RDW 16.9 H, Plt Count 145, MPV 11.9 H, Gran % 83.2 H, Lymph % ( Auto) 7.1 L, [place] % (Auto) 9.5 H, Eos % (Auto) 0.1 L, Baso % (Auto) 0.1, Gran # 10.45 H, Lymph # (Auto) 0.9 L, [place] # (Auto) 1.2 H, Eos # (Auto) 0.0, Baso # ( Auto) 0.01 I have reviewed the lab results: Yes - RAD Interpretation Radiology Orders: 09/17/17 19:50 CHEST PORTABLE [RAD] 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 Physician - EKG Interpretation Interpreted by ED Physician: Yes Type: 12 lead EKG - Medication Orders Current Medication Orders: Discontinued Medications Vancomycin HCl (Vancomycin 1gm) 1 gm in 250 mls @ 167 mls/hr IVPB STAT STA PRN Reason: Protocol Stop: 09/17/17 21:19 Last Admin: 09/17/17 22:19 Dose: 167 mls/hr eMAR Start Stop Document 09/17/17 22:19 GMD (Rec: 09/17/17 22:19 GMD [id number]) Intravenous Solution Start Date 09/17/17 Start Time 22:19 End Date 09/17/17 End time 23:49 Total Infusion Time 90 Aztreonam (Azactam 1 Gm) 100 mls @ 100 mls/hr IVPB STAT STA PRN Reason: Protocol Stop: 09/17/17 20:52 Last Admin: 09/17/17 20:59 Dose: 100 mls/hr eMAR Start Stop Document 09/17/17 20:59 GMD (Rec: 09/17/17 20:59 GMD [id number]) Intravenous Solution Start Date 09/17/17 Start Time 20:59 End Date 09/17/17 End time 21:59 Total Infusion Time 60 Oxycodone/Acetaminophen (Percocet 5/325 Mg Tab) 1 tab PO STAT STA Stop: 09/17/17 20:56 Last Admin: 09/17/17 21:10 Dose: 1 tab MAR Pain Assessment Document 09/17/17 21:10 GMD (Rec: 09/17/17 21:11 GMD [id number]) Pain Reassessment Is this a pain reassessment? No Presence of Pain Presence of Pain Yes Location Left, Right or Bilateral Right Pain Location Body Site Foot - Scribe Statement The provider has reviewed the documentation as recorded by the Fransisca Marsh Provider Scribe Attestation: All medical record entries made by the Scribe were at my direction and personally dictated by me. I have reviewed the chart and agree that the record accurately reflects my personal performance of the history, physical exam, medical decision making, and the department course for this patient. I have also personally directed, reviewed, and agree with the discharge instructions and disposition. Disposition/Present on Arrival - Present on Arrival Any Indicators Present on Arrival: No History of DVT/PE: No History of Uncontrolled Diabetes: No Urinary Catheter: No History of Decub. Ulcer: No History Surgical Site Infection Following: None - Disposition Have Diagnosis and Disposition been Completed?: Yes Diagnosis: Cellulitis of right lower leg, Renal failure, Shortness of breath, Sepsis Disposition: Transfer [facility] Disposition Time: 21:59 Patient Problems: Current Active Problems Problem Status Onset Asthma exacerbation Acute Cellulitis Acute Cellulitis of right lower leg Acute Diabetic foot ulcers Acute Fever Acute Renal failure Acute Sepsis Acute Shortness of breath Acute Condition: STABLE Discharge Instructions (ExitCare): Cellulitis (ED), Sepsis (ED) Forms: [employer] (Greenlandic)
[2017-09-17] MEDS ORDERED: Oxycodone/Acetaminophen 5/325 mg Tab PO STA (20:55)
[2017-09-17 21:04] LABS: BASO # 0.01 K/mm3 (0.0-2.0); BASO % 0.1 % (0.0-3.0); EOS % 0.1 % (1.5-5.0); GRAN # 10.45 (1.4-6.5); GRAN % 83.2 % (50.0-68.0); HEMOGLOBIN 9.3 g/dL (14.0-18.0); LYMPH # 0.9 (1.2-3.4); LYMPH % 7.1 % (22.0-35.0); MEAN CELL VOLUME 88.4 fl (80.0-105.0); MEAN CORPUSCULAR HEMOGLOBIN 29.1 pg (25.0-35.0); MEAN CORPUSCULAR HGB CONC 32.9 g/dl (31.0-37.0); MEAN PLATELET VOLUME 11.9 fl (7.0-11.0); MONO # 1.2 (0.1-0.6); MONO % 9.5 % (1.0-6.0); RBC 3.2 10^6/uL (3.5-6.1); RED CELL DISTRIBUTION WIDTH 16.9 % (11.5-14.5); WHITE BLOOD COUNT 12.6 10^3/ul (4.5-11.0)
[2017-09-17] MEDS ORDERED: Oxycodone/Acetaminophen 5/325 mg Tab ONE (21:10)
[2017-09-17 21:18] LABS: ALB/GLOB RATIO 0.8 (1.1-1.8); ALBUMIN 3.6 g/dL (3.0-4.8)
[2017-09-17 21:37] LABS: VENOUS BLOOD GAS BASE EXCESS 5.1 mmol/L (0.0-2.0); VENOUS BLOOD GAS PO2 27 mm/Hg (30-55); VENOUS BLOOD PH 7.42 (7.32-7.43)
[2017-09-17 21:45] LABS: INR 2.12 (0.93-1.08); PROTHROMBIN TIME 24.6 SECONDS (9.4-12.5)
[2017-09-17 22:08] VITALS: PULSE 68; RESP 18
[2017-09-17 22:37] VITALS: BP 114/51; TEMP 97.8; O2SAT 98
--- NOTE | 2017-09-18 11:13 | RAD ---
HISTORY: Sepsis Patient COMPARISON: 09/17/2017 FINDINGS: LUNGS: No active pulmonary disease. PLEURA: No significant pleural effusion identified, no pneumothorax apparent. CARDIOVASCULAR: Cardiomegaly. No evidence of acute, significant cardiovascular disease. Position/ configuration of pacemaker Satisfactory. OSSEOUS STRUCTURES: No significant abnormalities. VISUALIZED UPPER ABDOMEN: Normal. OTHER FINDINGS: None. IMPRESSION: No active disease. No significant interval change compared to the prior examination(s).
--- NOTE | 2017-09-18 17:25 | CARD ---
APPROVED REPORT EKG Measurement Heart [id number] [id number] <Conclusion> Atrial sensed, ventricular paced rhythm Fusion complexes
== END 2017-09-17 22:45 | disposition short-term general hospital (02) ==
LOC: ED 19:05
DX: I12.0 Hypertensive chronic kidney disease with stage 5 chronic kidney disease or end stage renal disease (principal); N18.6 End stage renal disease; Z99.2 Dependence on renal dialysis; A41.9 Sepsis, unspecified organism; L03.115 Cellulitis of right lower limb; R06.02 Shortness of breath

== ENCOUNTER → 2017-09-17 | Emergency (ER) | payer MEDICARE, OTHER ==
[~2017-09-17] MED LIST: Insulin Regular 1 UNITS/0.01 ML ML SC STA; Vancomycin 1gm in NS 250ml 1 GM/250 ML BAG IVPB STA
[2017-09-17 00:43] VITALS: BMI 33.5
[2017-09-17 02:26] LABS: MEAN CELL VOLUME 89.1 fl (80.0-105.0); MEAN CORPUSCULAR HEMOGLOBIN 28.9 pg (25.0-35.0); MEAN CORPUSCULAR HGB CONC 32.5 g/dl (31.0-37.0); MEAN PLATELET VOLUME 12.4 fl (7.0-11.0); RBC 3.11 10^6/uL (3.5-6.1); RED CELL DISTRIBUTION WIDTH 17.2 % (11.5-14.5)
[2017-09-17 02:28] LABS: VENOUS BLOOD GAS BASE EXCESS 7.8 mmol/L (0.0-2.0); VENOUS BLOOD GAS PO2 50 mm/Hg (30-55); VENOUS BLOOD PH 7.44 (7.32-7.43)
--- NOTE | 2017-09-17 02:29 | ED PDOC ---
Arrival/HPI - General Chief Complaint: Shortness Of Breath Time Seen by Provider: 09/17/17 01:13 Historian: Patient - History of Present Illness Narrative History of Present Illness (Text): 09/17/17 01:13 52 year old male, with past medical history of ESRD on dialysis (M/W/F), CHF, COPD, diabetes mellitus, hypertension, and pancreatitis, presents to the Emergency department complaining of generalized malaise, shortness of breath and chills since this evening. Patient was given nebulizer treatment prior to arrival with improvement to symptoms. Patient states he was recently treated for cellulitis. Patient currently denies any fever, nausea, vomiting, diarrhea, abdominal pain, chest pain, shortness of breath or any other complaints. Patient presents to the Emergency department for medical evaluation. Time/Duration: 4-6 hours Symptom Onset: Gradual Symptom Course: Unchanged Activities at Onset: Light Past Medical History - Provider Review Nursing Documentation Reviewed: Yes - Past History Past History: No Previous - Infectious Disease Hx of Infectious Diseases: None - Tetanus Immunization Tetanus Immunization: Up to Date - Reproductive Currently Lactating: No - Cardiac Hx Pacemaker: Yes (MEDTRONIC) - Pulmonary Hx Chronic Obstructive Pulmonary Disease (COPD): Yes - Neurological Hx Paralysis: No - HEENT Hx HEENT Disorder: Yes (BILATERAL EYE WITH BLURRY VISION) Hx Cataracts: Yes (HAD SX 05/29/12) Other/Comment: left eye cornea transplant,RENAL RETINOPATHY, glasses - Renal Date of Last Dialysis Treatment: 09/01/17 - Endocrine/Metabolic Hx Diabetes Mellitus Type 2: Yes - Hematological/Oncological Hx Blood Transfusions: Yes (5 YRS AGO) Hx Blood Transfusion Reaction: No - Integumentary Hx Dermatological Disorder: Yes (BILATERAL EDEMA TO UPPER AND LE,SKIN DRYNESS) - Musculoskeletal/Rheumatological Hx Musculoskeletal Disorders: Yes - Gastrointestinal Hx Gall Bladder Disease: Yes (CHOLECYSTECTOMY) Hx Pancreatitis: Yes - Genitourinary/Gynecological Hx Genitourinary Disorders: Yes (esrd on HD MWF) - Psychiatric Hx Emotional Abuse: No Hx Physical Abuse: No Hx Substance Use: No - Surgical History Hx Cholecystectomy: Yes (08/15/12) Hx Coronary Stent: Yes (x2 monday06/13/17) - Anesthesia Hx Anesthesia Reactions: No Hx Malignant Hyperthermia: No - Suicidal Assessment Feels Threatened In Home Enviroment: No Family/Social History - Physician Review Nursing Documentation Reviewed: Yes Family/Social History: No Known Family HX Smoking Status: Never Smoked Hx Alcohol Use: No Hx Substance Use: No Hx Substance Use Treatment: No Allergies/Home Meds Allergies/Adverse Reactions: Allergies insulin aspart [From Novolog] Allergy (Intermediate, Verified 09/12/17 11:30) RASH ANY INSULIN THAT STARTS WITH NOV- moxifloxacin Allergy (Intermediate, Verified 09/12/17 11:30) RASH Penicillins Allergy (Intermediate, Verified 09/12/17 11:30) RASH Home Medications: Home Meds Medication Instructions Recorded Confirmed Diclofenac Sodium [Voltaren] 1 appl TOP DAILY 06/14/17 09/17/17 Ergocalciferol (Vitamin D2) 50,000 unit PO WED 06/16/17 09/17/17 [Vitamin D2] Multivitamin with Iron 1 each PO DAILY 06/16/17 09/17/17 [Multivitamins with Iron] Freeman-3S/Dha/Epa/Fish Oil [Fish 2 cap PO BID 06/16/17 09/17/17 Oil Freeman-3 Softgel] Bimatoprost [Lumigan] 1 drp OU HS 07/05/17 09/17/17 Cetirizine HCl [Zyrtec] 10 mg PO DAILY 07/05/17 09/17/17 Salmeterol Xinafoate/Fluticaso 1 puff IH BID 07/05/17 09/17/17 [Advair Hfa 230-21] Calcium Acetate [Phoslo] 1,334 mg PO ACTID 07/21/17 09/17/17 Pregabalin [Lyrica] 50 mg PO HS 07/25/17 09/17/17 Insulin Human Regular [HumuLIN R] 2 units SC QPM 09/02/17 09/17/17 Insulin Human NPH [Humalin N] 60 units SC QPM 09/12/17 09/17/17 Metoprolol Tartrate [Lopressor] 50 mg PO QPM 09/12/17 09/17/17 Review of Systems - Physician Review All systems were reviewed & negative as marked: Yes - Review of Systems Constitutional: Other (Chills; general malaise). absent: Fevers Eyes: Normal ENT: Normal Respiratory: SOB (resolved with nebulizer treatment) Cardiovascular: Normal. absent: Chest Pain Gastrointestinal: Normal. absent: Abdominal Pain, Diarrhea, Nausea, Vomiting Genitourinary Male: Normal Musculoskeletal: Normal Skin: Normal Neurological: Normal Endocrine: Normal Hemo/Lymphatic: Normal Psychiatric: Normal Physical Exam Vital Signs Reviewed: Yes Vital Signs Temp Pulse Resp BP Pulse Ox 09/17/17 03:02 98.9 F 70 20 118/67 99 09/17/17 02:09 103.1 F H 09/17/17 01:45 103 F H 80 18 116/39 L 95 09/17/17 00:52 18 Temperature: Febrile Blood Pressure: Hypotensive Pulse: Regular Respiratory Rate: Normal Appearance: Positive for: Well-Appearing, Non-Toxic, Comfortable Pain Distress: None Mental Status: Positive for: Alert and Oriented X 3 - Systems Exam Head: Present: Atraumatic, Normocephalic Pupils: Present: PERRL Extroacular Muscles: Present: EOMI Conjunctiva: Present: Normal Mouth: Present: Moist Mucous Membranes Neck: Present: Normal Range of Motion Respiratory/Chest: Present: Clear to Auscultation, Good Air Exchange. No: Respiratory Distress, Accessory Muscle Use Cardiovascular: Present: Regular Rate and Rhythm, Normal S1, S2. No: Murmurs Abdomen: No: Tenderness, Distention, Peritoneal Signs Back: Present: Normal Inspection Upper Extremity: Present: Normal Inspection. No: Cyanosis, Edema Lower Extremity: Present: Normal ROM, Neurovascularly Intact, Other (Surgical wound to right foot distally/ulcer/right foot/distal leg erythema). No: Edema Neurological: Present: GCS=15, CN II-XII Intact, Speech Normal, Motor Func Grossly Intact, Normal Sensory Function Skin: Present: Warm, Dry, Normal Color. No: Rashes Psychiatric: Present: Alert, Oriented x 3, Normal Insight, Normal Concentration Medical Decision Making ED Course and Treatment: 09/17/17 01:13 Impression: 52 year old male presents to the Emergency department for generalized malaise, shortness of breath and chills. Plan: -- VBG -- EKG -- Labs -- Chest X-ray -- Blood Culture -- Urine Culture -- US Lower Extremity -- Reassess and disposition Prior Visits: Notes and results from previous visits were reviewed. Progress Notes: 09/17/17 03:25 Chest X-ray reviewed, shows no acute processes. DVT studies shows negative findings. 09/17/17 03:[address] Kessler, who is aware and agrees with Emergency department management plan to transfer patient to [facility] for dialysis. 09/17/17 05:00 Discussed case with Emergency department attendee at [facility], Dr. Martell, who is aware and agrees with Emergency department management plan, accepts patient to be transferred for further treatment and observation. 09/17/17 05:[address] Price, blanket inspector, who is aware and agrees with Emergency department management plan, accepts patient under his service. Patient is hemo dynamically stable to be transferred to [facility]. 09/17/17 05:30 Patient now refusing transfer admission to [facility] and states he wants to go home. Patient states he prefers to follow up with his PMD or return if symptomatic. The consequences of leaving against medical advice were explained extensively, which include but not limited to renal failure and . Patient is fully aware and expresses understanding but persists on leaving against medical advice. Leaving Against Medical Advice (AMA): The patient is choosing to leave against medical advice. I have personally explained to the patient that choosing to do so may result in permanent bodily harm or . I have discussed at great length that without further evaluation and monitoring there may be unforeseen circumstances and/or deterioration causing permanent bodily harm or as a result of their choice. The patient is alert, oriented, and shows the mental capacity to make clear decisions regarding the patients health care at this time. The patient continues to wish to leave against medical advice. In light of the patients decision to leave against medical advice, follow-up has been arranged and the patient is aware of the importance to following up as instructed. The patient has been advised that they should return to the emergency room immediately if they change their mind at any time, or if their condition begins to change or worsen in any way. 09/17/17 05:30 Dr. Kessler was made aware of patient's request to leave against medical advice. Dr. Kessler is aware and respects patient's decision. - Lab Interpretations Lab Results: 09/17/17 02:00 09/17/17 02:00 Lab Results 09/17/17 02:00: pO2 50, VBG pH 7.44 H, VBG pCO2 49.0, VBG HCO3 33.3 H, VBG Total CO2 34.8 H, VBG O2 Sat (Calc) 89.1 H, VBG Base Excess 7.8 H, VBG Potassium 4.7, Sodium 133.0, Chloride 93.0 L, Glucose 406 H* D, Lactate 2.7 H, FiO2 21.0, Venous Blood Potassium 4.7 09/17/17 02:00: WBC 13.0 H, RBC 3.11 L, Hgb 9.0 L, Hct 27.7 L, MCV 89.1, MCH 28.9, MCHC 32.5, RDW 17.2 H, Plt Count 167, MPV 12.4 H 09/17/17 02:00: Sodium 135, Chloride 90 L, Potassium 5.2 H, Carbon Dioxide 30, Anion Gap 20, BUN 44 H, Creatinine 6.3 H, Est GFR ( Amer) 11, Est GFR ( Non-Af Amer) 9, Random Glucose 382 H* D, Calcium 8.6, Phosphorus 3.2, Magnesium 2.1, Total Bilirubin 1.6 H, AST 97 H D, ALT 34, Alkaline Phosphatase 70, Lactate Dehydrogenase 1029 H, Total Creatine Kinase 333 H, CK-MB (CK-2) 2.3, CK- MB (CK-2) % Cancelled, Troponin I 0.10, NT-Pro-B Natriuret Pep 97741 H, Total Protein 8.2, Albumin 3.5, Globulin 4.7, Albumin/Globulin Ratio 0.7 L 09/17/17 02:00: PT 23.8 H, INR 2.06 H, APTT 35.2 - RAD Interpretation Radiology Orders: 09/17/17 01:14 CHEST PORTABLE [RAD] Stat 09/17/17 01:57 DUPLEX LOWER EXTRM VEIN BILAT [US] 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 No Sleep Is patient sleeping during reassessment? No Presence of Pain Presence of Pain No Vitals Temperature (97.6 F-99.6 F) 103.1 F Temperature Source Oral Vancomycin HCl (Vancomycin 1gm) 1 gm in 250 mls @ 133.333 mls/hr IVPB STAT STA PRN Reason: Protocol Stop: 09/17/17 05:20 Last Admin: 09/17/17 04:01 Dose: 133.333 mls/hr eMAR Start Stop Document 09/17/17 04:01 RE (Rec: 09/17/17 04:01 RE [email or web address]) Intravenous Solution Start Date 09/17/17 Start Time 04:01 Insulin Human Regular (Humulin R) 7 units SC STAT STA Stop: 09/17/17 03:29 Last Admin: 09/17/17 03:58 Dose: 7 unit Subcutaneous Administrations Document 09/17/17 03:58 RE (Rec: 09/17/17 03:59 RE [email or web address] Injection Site MAR Injection Site Right Deltoid Charges for Administration # of Subcutaneous Administrations 1 - Scribe Statement The provider has reviewed the documentation as recorded by the Scribe Mary Cooley. All medical record entries made by the Scribe were at my direction and personally dictated by me. I have reviewed the chart and agree that the record accurately reflects my personal performance of the history, physical exam, medical decision making, and the department course for this patient. I have also personally directed, reviewed, and agree with the discharge instructions and disposition. Disposition/Present on Arrival - Present on Arrival Any Indicators Present on Arrival: No History of DVT/PE: No History of Uncontrolled Diabetes: No Urinary Catheter: No History of Decub. Ulcer: No History Surgical Site Infection Following: None - Disposition Have Diagnosis and Disposition been Completed?: Yes Diagnosis: Shortness of breath, Renal failure, Fever, Asthma exacerbation, Diabetic foot ulcers, Cellulitis Disposition: AGAINST MEDICAL ADVICE Disposition Time: 05:30 Patient Problems: Current Active Problems Problem Status Onset Asthma exacerbation Acute Cellulitis Acute Diabetic foot ulcers Acute Fever Acute Renal failure Acute Shortness of breath Acute Condition: STABLE Discharge Instructions (ExitCare): Cellulitis (ED) Referrals: Diana Kessler MD [Primary Care Provider] - Follow up with primary Forms: [employer] ([place])
[2017-09-17 02:53] LABS: ALB/GLOB RATIO 0.7 (1.1-1.8); ALBUMIN 3.5 g/dL (3.0-4.8); CALCIUM 8.6 mg/dL (8.4-10.5); TROPONIN I 0.1 ng/mL
[2017-09-17 02:57] LABS: INR 2.06 (0.93-1.08); PARTIAL THROMBOPLASTIN TIME 35.2 Seconds (25.1-36.5); PROTHROMBIN TIME 23.8 SECONDS (9.4-12.5)
[2017-09-17 03:24] LABS: CK-MB 2.3 ng/mL (0.0-3.6)
[2017-09-17 05:55] VITALS: BP 104/42; PULSE 60; RESP 18; TEMP 98; O2SAT 100
--- NOTE | 2017-09-17 10:33 | RAD ---
HISTORY: Shortness of breath. COMPARISON: 09/01/2017 FINDINGS: LUNGS: No active pulmonary disease. PLEURA: No significant pleural effusion identified, no pneumothorax apparent. CARDIOVASCULAR: Cardiomegaly. No evidence of acute, significant cardiovascular disease. Position/ configuration of pacemaker Satisfactory. OSSEOUS STRUCTURES: No significant abnormalities. VISUALIZED UPPER ABDOMEN: Normal. OTHER FINDINGS: None. IMPRESSION: Cardiomegaly without CHF. No active pulmonary disease. No significant interval change compared to the prior examination(s).
--- NOTE | 2017-09-18 09:07 | US ---
HISTORY: Leg pain and swelling. Evaluate for DVT PHYSICIAN(S): Alfredo Wynn MD. TECHNIQUE: Duplex sonography and color-flow Doppler with graded compression were used to evaluate the deep venous systems of both lower extremities. FINDINGS: The visualized deep venous systems of both lower extremities are sonographically normal and compressible. Normal wave forms and augmentation are seen. There is no sonographic evidence for deep venous thrombosis in the visualized segments of both lower extremities. IMPRESSION: No sonographic evidence for deep venous thrombosis in the visualized segments of both lower extremities.
== END | disposition left against medical advice (07) ==
LOC: ED 00:43
DX: J45.901 Unspecified asthma with (acute) exacerbation (principal); R06.02 Shortness of breath; R50.9 Fever, unspecified; I12.0 Hypertensive chronic kidney disease with stage 5 chronic kidney disease or end stage renal disease; N18.6 End stage renal disease; Z99.2 Dependence on renal dialysis; E11.621 Type 2 diabetes mellitus with foot ulcer; L97.519 Non-pressure chronic ulcer of other part of right foot with unspecified severity; L03.115 Cellulitis of right lower limb

== ENCOUNTER 2017-09-30 12:10 | Emergency (ER) | payer MEDICARE, OTHER ==
[2017-09-30 12:10] VITALS: BMI 33.5
== END 2017-09-30 12:37 | disposition left against medical advice (07) ==
LOC: ED 12:10
DX: Z02.89 Encounter for other administrative examinations (principal); L08.9 Local infection of the skin and subcutaneous tissue, unspecified

== ENCOUNTER 2017-10-02 19:40 | Inpatient (IN) | payer MEDICARE, OTHER ==
--- NOTE | 2017-10-02 20:24 | ED PDOC ---
Arrival/HPI <CharToy moscoso - Last Filed: 10/02/17 22:31> - General Historian: Patient - History of Present Illness Time/Duration: Other (see hpi) Context: Home <Nikolai Aguila - Last Filed: 10/04/17 17:45> - General Chief Complaint: Lower Extremity Problem/Injury Time Seen by Provider: 10/02/17 20:22 - History of Present Illness Narrative History of Present Illness (Text): 10/02/17 20:23 A 52 year old male, whose past medical history includes ESRD on dialysis ( sessions //Mon), CHF. COPD, diabetes, hypertension, and pancreatitis, presents to the emergency department complaining of Right foot infection. Patient stated he saw Dr. Herrera today, and she recommended him to come to ED for admission for diabetic foot gangrene. Patient complains of foot pain. Patient denies other complains. (Nikolai Aguila) Past Medical History - Provider Review Nursing Documentation Reviewed: Yes - Past History Past History: No Previous - Infectious Disease Hx of Infectious Diseases: None - Tetanus Immunization Tetanus Immunization: Up to Date - Reproductive Currently Lactating: No - Cardiac Hx Cardiac Disorders: Yes Hx Cardiac Arrhythmia: No Hx Circulatory Problems: Yes Hx Congestive Heart Failure: Yes Hx OR: Yes Hx Hypertension: Yes Hx Pacemaker: Yes ([employer]) Hx Peripheral Edema: Yes Hx Peripheral Vascular Disease: Yes - Pulmonary Hx Respiratory Disorders: Yes Hx Asthma: Yes Hx Bronchitis: Yes Hx Chronic Obstructive Pulmonary Disease (COPD): Yes Hx Emphysema: No Hx Pneumonia: Yes Hx Sleep Apnea: Yes (c pap 2) - Neurological Hx Neurological Disorder: Yes HX Cerebrovascular Accident: Yes Hx Dizziness: Yes Hx Transient Ischemic Attacks (TIA): Yes Other/Comment: Peripheral Neuropathy - HEENT Hx HEENT Disorder: Yes (BILATERAL EYE WITH BLURRY VISION) Hx Cataracts: Yes (HAD SX 05/29/12) Hx Epistaxis: Yes Other/Comment: left eye cornea transplant,RENAL RETINOPATHY, glasses - Renal Hx Renal Disorder: Yes Hx Dialysis: Yes (MWF) Date of Last Dialysis Treatment: 10/02/17 Hx Kidney Stones: Yes Hx Renal Failure: Yes Other/Comment: Hematuria,BPH,UTI - Endocrine/Metabolic Hx Endocrine Disorders: Yes Hx Diabetes Mellitus Type 1: Yes Hx Diabetes Mellitus Type 2: Yes Hx Hypothyroidism: Yes - Hematological/Oncological Hx Blood Disorders: Yes Hx Anemia: Yes (With transfusions) Hx Blood Transfusions: Yes - Integumentary Hx Dermatological Disorder: Yes Hx Cellulitis: Yes - Musculoskeletal/Rheumatological Hx Musculoskeletal Disorders: Yes Hx Arthritis: Yes Hx Back Pain: Yes Hx Falls: No Hx Fractures: Yes Hx Gout: Yes Hx Spinal Stenosis: Yes Hx Unsteady Gait: Yes - Gastrointestinal Hx Gastrointestinal Disorders: Yes Hx Gall Bladder Disease: Yes (CHOLECYSTECTOMY) Hx Gastroesophageal Reflux: Yes Hx Liver Failure: Yes (CKD) Hx Pancreatitis: Yes - Genitourinary/Gynecological Hx Genitourinary Disorders: Yes (esrd on HD MWF) Hx Hematuria: Yes Hx Prostate Problems: Yes Hx Urinary Tract Infection: Yes - Psychiatric Hx Psychophysiologic Disorder: Yes Hx Anxiety: Yes Hx Depression: No Hx Substance Use: No - Surgical History Hx Cholecystectomy: Yes (08/15/12) Hx Coronary Stent: Yes (x2 monday06/13/17) - Anesthesia Hx Anesthesia: Yes Hx Anesthesia Reactions: No Hx Malignant Hyperthermia: No - Suicidal Assessment Feels Threatened In Home Enviroment: No <Nikolai Aguila - Last Filed: 10/04/17 17:45> Family/Social History - Physician Review Nursing Documentation Reviewed: Yes Family/Social History: Other (noncontributory) Smoking Status: Never Smoked Hx Alcohol Use: No Hx Substance Use: No Hx Substance Use Treatment: No <Nikolai Aguila - Last Filed: 10/04/17 17:45> Allergies/Home Meds <Toy Pardo - Last Filed: 10/02/17 22:31> <Nikolai Aguila - Last Filed: 10/04/17 17:45> Allergies/Adverse Reactions: Allergies insulin aspart [From Novolog] Allergy (Intermediate, Verified 10/02/17 19:52) RASH ANY INSULIN THAT STARTS WITH NOV- moxifloxacin Allergy (Intermediate, Verified 10/02/17 19:52) RASH Penicillins Allergy (Intermediate, Verified 10/02/17 19:52) RASH insulin regular [From Novolin R Regular U-100 Insuln] Allergy (Verified 19:52) ITCHING Home Medications: Home Meds Medication Instructions Recorded Confirmed Diclofenac Sodium [Voltaren] 1 appl TOP DAILY 06/14/17 10/02/17 Ergocalciferol (Vitamin D2) 50,000 unit PO WED 06/16/17 10/02/17 [Vitamin D2] Multivitamin with Iron 1 each PO DAILY 06/16/17 10/02/17 [Multivitamins with Iron] Lomira-3S/Dha/Epa/Fish Oil [Fish 2 cap PO BID 06/16/17 10/02/17 Oil Lomira-3 Softgel] Bimatoprost [Lumigan] 1 drp OU HS 07/05/17 10/02/17 Cetirizine HCl [Zyrtec] 10 mg PO DAILY 07/05/17 10/02/17 Salmeterol Xinafoate/Fluticaso 1 puff IH BID 07/05/17 10/02/17 [Advair Hfa 230-21] Calcium Acetate [Phoslo] 1,334 mg PO ACTID 07/21/17 10/02/17 Pregabalin [Lyrica] 50 mg PO HS 07/25/17 10/02/17 Insulin Human Regular [HumuLIN R] 2 units SC QPM 09/02/17 10/02/17 Insulin Human NPH [Humalin N] 60 units SC QPM 09/12/17 10/02/17 Metoprolol Tartrate [Lopressor] 50 mg PO QPM 09/12/17 10/02/17 Review of Systems - Review of Systems Constitutional: Normal. absent: Fatigue, Weight Change, Fevers, Night Sweats Eyes: Normal ENT: Normal Respiratory: Normal Cardiovascular: Normal Gastrointestinal: Normal Genitourinary Male: Normal Musculoskeletal: Other (see hpi) Skin: Normal Neurological: Normal Endocrine: Normal Hemo/Lymphatic: Normal Psychiatric: Normal <Nikolai Aguila P - Last Filed: 10/04/17 17:45> Physical Exam Temperature: Afebrile Blood Pressure: Normal Pulse: Bradycardic Respiratory Rate: Normal Appearance: Positive for: Well-Appearing, Non-Toxic, Comfortable Pain Distress: None Mental Status: Positive for: Alert and Oriented X 3 - Systems Exam Head: Present: Atraumatic, Normocephalic Pupils: Present: PERRL Extroacular Muscles: Present: EOMI Conjunctiva: Present: Normal Mouth: Present: Moist Mucous Membranes Neck: Present: Normal Range of Motion Respiratory/Chest: Present: Clear to Auscultation, Good Air Exchange. No: Respiratory Distress, Accessory Muscle Use Cardiovascular: Present: Regular Rate and Rhythm, Normal S1, S2. No: Murmurs Abdomen: No: Tenderness, Distention, Peritoneal Signs Back: Present: Normal Inspection Upper Extremity: Present: Normal Inspection. No: Cyanosis, Edema Lower Extremity: Present: NORMAL PULSES, Other ((+) right plantar aspect of foot with ceelulitis, swelling, with necrosis of soft tissue ). No: Edema, CALF TENDERNESS Neurological: Present: GCS=15, CN II-XII Intact, Speech Normal Skin: Present: Warm, Dry, Normal Color. No: Rashes Psychiatric: Present: Alert, Oriented x 3, Normal Insight, Normal Concentration <Rosaura Aguilaim P - Last Filed: 10/04/17 17:45> Vital Signs Temp Pulse Resp BP Pulse Ox 10/03/17 00:50 98.0 F 75 18 103/55 L 100 10/03/17 00:47 75 18 103/55 L 100 10/02/17 22:21 75 17 123/45 L 100 10/02/17 19:56 98.8 F 49 L 16 112/43 L 100 Medical Decision Making <Toy Pardo - Last Filed: 10/02/17 22:31> Re-evaluation Time: 23:21 Reassessment Condition: Re-examined, Improving,but remains with symptoms - Lab Interpretations I have reviewed the lab results: Yes Interpretation: No sign. chg./baseline <Rosaura Aguilaim P - Last Filed: 10/04/17 17:45> ED Course and Treatment: 10/02/17 23:[address] Kessler regarding patient complain. she agreed with plan for admission. (AgiulaRosaura salasim P) - Lab Interpretations Microbiology Results: Microbiology Results 10/02/17 21:20 Blood Blood Culture - Preliminary NO GROWTH AFTER 24 HOURS 10/02/17 21:05 Blood Blood Culture - Preliminary NO GROWTH AFTER 24 HOURS Lab Results: 10/02/17 21:20 10/02/17 21:20 Lab Results 10/02/17 21:20: Lactic Acid 1.9 10/02/17 21:20: Sodium 139, Potassium 4.1, Chloride 95 L, Carbon Dioxide 32, Anion Gap 16, BUN 26 H, Creatinine 3.6 H, Est GFR ( Amer) 21, Est GFR ( Non-Af Amer) 18, Random Glucose 114 H, Calcium 8.5, Phosphorus 3.3, Magnesium 2.2, Total Bilirubin 1.3, AST 92 H D, ALT 50, Alkaline Phosphatase 110, Total Protein 8.1, Albumin 3.2, Globulin 4.9, Albumin/Globulin Ratio 0.6 L 10/02/17 21:20: PT 19.3 H, INR 1.68 H, APTT 32.0 10/02/17 21:20: WBC 9.0 D, RBC 3.15 L, Hgb 8.9 L, Hct 27.6 L, MCV 87.6, MCH 28.3, MCHC 32.2, RDW 18.5 H, Plt Count 230, MPV 10.0, Gran % 78.0 H, Lymph % ( Auto) 16.0 L, [place] % (Auto) 5.7, Eos % (Auto) 0.1 L, Baso % (Auto) 0.2, Gran # 7.00 H, Lymph # (Auto) 1.4, [place] # (Auto) 0.5, Eos # (Auto) 0.0, Baso # (Auto) 0.02 - RAD Interpretation Narrative RAD Interpretations (Text): Foot x-rays: soft tissue swelling. No soft tissue air (Aguila,Nahim P) Radiology Orders: 10/02/17 20:42 CHEST PORTABLE [RAD] Stat 10/03/17 08:00 DUPLEX LOWER EXT ART RT LMTD [US] Routine LOWER EXT ART NON-INV COMPL [US] Routine 10/03/17 10:00 FOOT RIGHT 3 VIEWS ROUTINE [RAD] Stat - Medication Orders Current Medication Orders: Albuterol/Ipratropium (Duoneb 3 Mg/0.5 Mg (3 Ml) Ud) 3 ml IH [id number] [facility] Last Admin: 10/04/17 13:40 Dose: 3 ml Aspirin (Ecotrin) 81 mg PO DAILY [facility] Last Admin: 10/04/17 14:52 Dose: Not Given Non-Admin Reason: Patient Refused Atorvastatin Calcium (Lipitor) 40 mg PO DIN [facility] Last Admin: 10/03/17 17:06 Dose: 40 mg Calcium Acetate (Phoslo) 1,334 mg PO WM [facility] Last Admin: 10/04/17 12:50 Dose: Not Given Non-Admin Reason: NPO Ergocalciferol (Drisdol 50,000 Intl Units Cap) 1 cap PO WED [facility] Last Admin: 10/04/17 12:48 Dose: 1 cap Fenofibrate (Tricor) 145 mg PO DAILY [facility] Last Admin: 10/04/17 12:48 Dose: 145 mg Glipizide (Glucotrol) 10 mg PO DAILY [facility] Last Admin: 10/04/17 12:50 Dose: Not Given Non-Admin Reason: NPO Hydralazine HCl (Apresoline) 25 mg PO BID [facility] Last Admin: 10/04/17 14:50 Dose: Not Given Non-Admin Reason: Patient in Dialysis Meropenem 500 mg/ Sodium (Chloride) 50 mls @ 100 mls/hr IVPB Q12 CARLOS PRN Reason: Protocol Stop: 10/12/17 14:01 Last Admin: 10/04/17 12:47 Dose: 100 mls/hr eMAR Start Stop Document 10/04/17 12:47 Y (Rec: 10/04/17 12:48 [facility]-[id number]) Intravenous Solution Start Date 10/04/17 Start Time 12:47 End Date 10/04/17 End time 13:17 Total Infusion Time 30 Dextrose (Dextrose 10% In Water) 500 mls @ 20 mls/hr IV .Q24H [facility] Last Admin: 10/04/17 13:22 Dose: 20 mls/hr eMAR Start Stop Document 10/04/17 13:22 Y (Rec: 10/04/17 13:22 [id number]) Intravenous Solution Start Date 10/04/17 Start Time 13:22 Insulin Human NPH (Humulin N) 60 units SC QPM [facility] Last Admin: 10/03/17 18:14 Dose: 60 units MAR Blood Glucose Document 10/03/17 18:14 [facility] (Rec: 10/03/17 18:15 [id number]) Blood Glucose Finger Stick Blood Glucose (70-120) 281 Subcutaneous Administrations Document 10/03/17 18:14 [facility] (Rec: 10/03/17 18:15 [id number]) Injection Site MAR Injection Site Right Abdomen Charges for Administration # of Subcutaneous Administrations 1 Insulin Human Regular (Humulin R Low) 0 units SC ACHS CARLOS PRN Reason: Protocol Last Admin: 10/04/17 12:50 Dose: Not Given Non-Admin Reason: NPO Levothyroxine Sodium (Synthroid) 25 mcg PO 0600 [facility] Last Admin: 10/04/17 05:59 Dose: 25 mcg Loratadine (Claritin) 10 mg PO [facility] Last Admin: 10/03/17 22:00 Dose: 10 mg Metoprolol Tartrate (Lopressor) 50 mg PO QPM [facility] Montelukast Sodium (Singulair) 10 mg PO [facility] Last Admin: 10/03/17 22:01 Dose: 10 mg Morphine Sulfate (Morphine) 2 mg IVP Q5H PRN PRN Reason: Pain, severe (8-10) Last Admin: 10/04/17 15:40 Dose: 2 mg MAR Pain Assessment Document 10/04/17 15:40 Y (Rec: 10/04/17 15:40 [id number]) Pain Reassessment Is this a pain reassessment? No Sleep Is patient sleeping during reassessment? No Presence of Pain Presence of Pain Yes Pain Scale Used Pain Scale Used Numeric Location Left, Right or Bilateral Right Pain Location Body Site Foot Description Intensity of Pain at present 10 IVP Administration Document 10/04/17 15:40 Y (Rec: 10/04/17 15:40 [facility]-[id number]) Charges for Administration # of IVP Administrations 1 Multivitamins (Thera Tab) 1 tab PO DAILY [facility] Last Admin: 10/04/17 12:51 Dose: 1 tab Non-Formulary Medication (Bimatoprost [Lumigan]) 1 drp OU [facility] Last Admin: 10/03/17 22:00 Dose: Non-Formulary Medication (Diclofenac Sodium [Voltaren]) 1 appl TOP DAILY [facility] Last Admin: 10/04/17 14:50 Dose: Non-Formulary Medication (Salmeterol Xinafoate/Fluticaso [Advair Hfa 230-21]) 1 puff IH BID [facility] Last Admin: 10/04/17 12:51 Dose: Yithq-4-Kjtd Ethyl Esters (Lovaza) 2 gm PO BID [facility] Last Admin: 10/04/17 12:49 Dose: 2 gm Ondansetron HCl (Zofran Inj) 4 mg IVP Q6H PRN PRN Reason: Nausea/Vomiting Pantoprazole Sodium (Protonix Ec Tab) 40 mg PO DAILY [facility] Last Admin: 10/04/17 12:48 Dose: 40 mg Pregabalin (Lyrica) 50 mg PO HS [facility] Last Admin: 10/03/17 22:01 Dose: 50 mg Sevelamer HCl (Renagel) 1,600 mg PO TID [facility] Last Admin: 10/04/17 14:52 Dose: Not Given Non-Admin Reason: NPO Sodium Chloride ([place] Nasal [place]) 1 ml NS Q2H PRN PRN Reason: Nasal congestion Tamsulosin HCl (Flomax) 0.4 mg PO HS [facility] Last Admin: 10/03/17 22:00 Dose: 0.4 mg Ticagrelor (Brilinta) 90 mg PO BID [facility] Last Admin: 10/03/17 18:10 Dose: 90 mg Discontinued Medications Darbepoetin Jimmie (Aranesp) 100 mcg IVP ONCE ONE Stop: 10/04/17 06:01 Last Admin: 10/04/17 11:03 Dose: 100 mcg IVP Administration Document 10/04/17 11:03 CASSANDRA (Rec: 10/04/17 11:03 [facility] [place] Charges for Administration # of IVP Administrations 1 Dextrose (Dextrose 50% Inj) 50 ml IVP ONCE ONE Stop: 10/04/17 16:39 Last Admin: 10/04/17 16:45 Dose: 50 ml Hydromorphone HCl (Dilaudid) 0.5 mg IVP STAT STA Stop: 10/02/17 21:40 Last Admin: 10/02/17 21:58 Dose: 0.5 mg MAR Pain Assessment Document 10/02/17 21:58 IT (Rec: 10/02/17 21:58 [id number] Pain Reassessment Is this a pain reassessment? No Sleep Is patient sleeping during reassessment? No Presence of Pain Presence of Pain Yes Pain Scale Used Pain Scale Used Numeric Location Left, Right or Bilateral Right IVP Administration Document 10/02/17 21:58 IT (Rec: 10/02/17 21:58 [id number]) Charges for Administration # of IVP Administrations 1 Ceftaroline Fosamil 200 mg/ (Sodium Chloride) 50 mls @ 50 mls/hr IVPB STAT STA PRN Reason: Protocol Stop: 10/02/17 21:44 Last Admin: 10/02/17 21:58 Dose: 50 mls/hr eMAR Start Stop Document 10/02/17 21:58 IT (Rec: 10/02/17 21:58 IT [id number]) Intravenous Solution Start Date 10/02/17 Start Time 21:58 Vancomycin HCl (Vancomycin 1gm) 1 gm in 250 mls @ 167 mls/hr IVPB STAT STA PRN Reason: Protocol Stop: 10/03/17 15:29 Last Admin: 10/03/17 14:57 Dose: 167 mls/hr eMAR Start Stop Document 10/03/17 14:57 SES (Rec: 10/03/17 14:58 SES [id number]) Intravenous Solution Start Date 10/03/17 Start Time 14:57 End Date 10/03/17 End time 16:27 Total Infusion Time 90 Loratadine (Claritin) 10 mg PO DAILY [facility] Last Admin: 10/03/17 10:30 Dose: Not Given Non-Admin Reason: Patient Refused Morphine Sulfate (Morphine) 2 mg IVP Q6H PRN PRN Reason: Pain, severe (8-10) Last Admin: 10/04/17 11:22 Dose: 2 mg MAR Pain Assessment Document 10/04/17 11:22 LMN (Rec: 10/04/17 11:22 LMN [id number]) Pain Reassessment Is this a pain reassessment? No Presence of Pain Presence of Pain Yes Pain Scale Used Pain Scale Used Numeric Location Left, Right or Bilateral Right Pain Location Body Site Leg Description Alleviating Factors/Management Medication Techniques IVP Administration Document 10/04/17 11:22 LMN (Rec: 10/04/17 11:22 LMN [id number]) Charges for Administration # of IVP Administrations 1 Morphine Sulfate (Morphine) 1 mg IVP STAT STA Stop: 10/04/17 00:13 Last Admin: 10/04/17 00:26 Dose: 1 mg MAR Pain Assessment Document 10/04/17 00:26 MJ (Rec: 10/04/17 00:27 MJ [facility] [id number]) Pain Reassessment Is this a pain reassessment? No Sleep Is patient sleeping during reassessment? No Presence of Pain Presence of Pain Yes Pain Scale Used Pain Scale Used Numeric Location Pain Location Body Site Foot Description Description Constant Intensity of Pain at present 8 Pain Behavior Moaning Alleviating Factors/Management Medication Techniques Alleviating Factors Medication IVP Administration Document 10/04/17 00:26 MJ (Rec: 10/04/17 00:27 MJ [facility] [id number]) Charges for Administration # of IVP Administrations 1 Non-Formulary Medication (Calcium Acetate [Phoslo]) 1,334 mg PO ACTID [facility] Non-Formulary Medication (Cetirizine Hcl [Zyrtec]) 10 mg PO DAILY [facility] Non-Formulary Medication (Multivitamin With Iron [Multivitamins With Iron]) 1 each PO DAILY [facility] Non-Formulary Medication (Lomira-3s/Dha/Epa/Fish Oil [Fish Oil Lomira-3 Softgel]) 2 cap PO BID [facility] Tamsulosin HCl (Flomax) 0.4 mg PO DAILY [facility] Last Admin: 10/03/17 10:28 Dose: Not Given Non-Admin Reason: Patient Refused - 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 / has examined the patient and agrees with the treatment plan. <Toy Pardo - Last Filed: 10/02/17 22:31> Disposition/Present on Arrival <Toy Pardo - Last Filed: 10/02/17 22:31> - Present on Arrival Any Indicators Present on Arrival: No History of DVT/PE: No History of Uncontrolled Diabetes: Yes Urinary Catheter: No History of Decub. Ulcer: No History Surgical Site Infection Following: None - Disposition Have Diagnosis and Disposition been Completed?: Yes Disposition Time: 23:32 Patient Plan: Admission <Nikolai Aguila - Last Filed: 10/04/17 17:45> - Disposition Diagnosis: Diabetic infection of right foot Disposition: HOSPITALIZED Patient Problems: Current Active Problems Problem Status Onset Diabetic infection of right foot Acute Condition: STABLE
[2017-10-02] MEDS ORDERED: HYDROmorphone 0.5 mg/0.5 ml ISec IVP STA (21:39)
[2017-10-02 21:41] LABS: BASO # 0.02 K/mm3 (0.0-2.0); BASO % 0.2 % (0.0-3.0); EOS % 0.1 % (1.5-5.0); HEMOGLOBIN 8.9 g/dL (14.0-18.0); LYMPH # 1.4 (1.2-3.4); MEAN CELL VOLUME 87.6 fl (80.0-105.0); MEAN CORPUSCULAR HEMOGLOBIN 28.3 pg (25.0-35.0); MEAN CORPUSCULAR HGB CONC 32.2 g/dl (31.0-37.0); MONO # 0.5 (0.1-0.6); MONO % 5.7 % (1.0-6.0); RBC 3.15 10^6/uL (3.5-6.1); RED CELL DISTRIBUTION WIDTH 18.5 % (11.5-14.5)
[2017-10-02 22:07] LABS: INR 1.68 (0.93-1.08); PROTHROMBIN TIME 19.3 SECONDS (9.4-12.5)
[2017-10-02 22:28] LABS: ALB/GLOB RATIO 0.6 (1.1-1.8); ALBUMIN 3.2 g/dL (3.0-4.8); CALCIUM 8.5 mg/dL (8.4-10.5)
[2017-10-03] MEDS: Morphine 2 mg/ml ISec IVP PRN ×4 (00:45→20:51)
[2017-10-03 05:26] VITALS: BMI 32.3
--- NOTE | 2017-10-03 08:40 | RAD ---
Date of service: 10/02/2017 HISTORY: Sepsis Patient COMPARISON: 09/17/2017. FINDINGS: LUNGS: The lungs are well inflated. There is mild pulmonary venous congestion. PLEURA: No significant pleural effusion identified, no pneumothorax apparent. CARDIOVASCULAR: There is persistent severe cardiomegaly. There is stable position of a right-sided permanent pacing device. OSSEOUS STRUCTURES: No significant abnormalities. VISUALIZED UPPER ABDOMEN: Normal. OTHER FINDINGS: None. IMPRESSION: Severe cardiomegaly and mild pulmonary venous congestion. No active pulmonary disease.
--- NOTE | 2017-10-03 09:23 | HP ---
The patient was seen and examined on the bedside on 10/02/2017 in the ER. CHIEF COMPLAINT: Feet pain. HISTORY OF PRESENT ILLNESS: Mr. Jason Berger, my private patient, 52-year-old male with past medical history of end-stage renal disease, on hemodialysis such as Monday/Monday/Monday; history of congestive heart failure; COPD; asthma; diabetes mellitus; hypertension; history of pancreatitis; was sent to the emergency room by Dr. Deborah Villanueva, placement specialist because of the pain in the feet and gangrenous changes. No fever. No chills. No headache. No dizziness. No shortness of breath, but complaining about pain and sometime coughing. PAST MEDICAL HISTORY: History of anemia, status post blood transfusion; congestive heart failure; DE; hypertension; pacemaker; peripheral vascular disease; asthma; bronchitis; COPD; pneumonia; history of obstructive sleep apnea, using BiPAP; history of CVA; dizziness; TIA; blurring of vision; epistaxis; nephrolithiasis; diabetes mellitus; hypothyroidism; cellulitis of the lower extremities; back pain; fracture ; spinal stenosis; CKD. FAMILY HISTORY: Mother has history of renal insufficiency, on hemodialysis; congestive heart failure; coronary artery disease. HABITS: Never smoked. No drugs. No ethanol. ALLERGIES: THE PATIENT IS ALLERGIC WITH INSULIN ASPART, MOXIFLOXACIN, PENICILLIN, INSULIN REGULAR. HOME MEDICATIONS: vitamin D, multivitamins, omega, Zyrtec, Advair, calcium, Lyrica, Lopressor. REVIEW OF SYSTEMS: The patient was seen and examined on the bedside in the emergency room. Has dressing on the feet, having pain and coughing sometime, sometime shortness of breath as per the patient, even he is going to the bathroom. No headache. No dizziness. No chest pain. No palpitation. No fever. No chills. PHYSICAL EXAMINATION: VITAL SIGNS: Temperature 98.8, pulse 49, respiratory rate 16, blood pressure 112/43. HEENT: Head normocephalic, atraumatic. Eyes PERRLA. Extraocular muscles intact. Conjunctivae clear. Nose patent. Mucous membrane moist. NECK: Supple. No carotid bruit. No JVD or thyromegaly. CHEST: Bilaterally symmetrical. HEART: S1 and S2 positive. LUNGS: Clear to auscultation. ABDOMEN: Soft. Bowel sounds positive. No organomegaly. EXTREMITIES: Trace edema. Feet has dressing. NEUROLOGICAL: The patient is awake, alert. Moving all 4 extremities. No focal deficits. LABORATORY DATA: White blood cells 9, hemoglobin 8.9, hematocrit 27.6, platelets 230. Sodium 139, potassium 4.1, BUN 26, creatinine 3.6, glucose 114. ASSESSMENT AND PLAN: Mr. Jason Berger, 52-year-old male with anemia, renal insufficiency, on hemodialysis 3 times a week; insulin-dependent type 2 uncontrolled diabetes mellitus; peripheral vascular disease; history of asthma; chronic obstructive pulmonary disease. Came with diabetic infection of the right foot with gangrenous changes. History of hypertension, myocardial infarction; congestive heart failure; pacemaker due to bradycardia; history of sleep apnea, using bilevel positive airway pressure; history of cerebrovascular accident; transient ischemic attack; peripheral neuropathy; bilateral eye blurring of vision; history of cataract; epistaxis; left eye cornea transplant; diabetic nephropathy; diabetic retinopathy; diabetic neuropathy; nephrolithiasis. Admitted the patient. Antibiotics given. Called a consult with Dr. Villanueva. Dr. Alfredo Wynn to work on peripheral vascular disease. 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 Called Dr. Forbes for antibiotics. Gastrointestinal, deep venous thrombosis prophylaxis. Repeat labs. We will follow up. Diana Kessler MD MTDD
--- NOTE | 2017-10-03 09:30 | CARD ---
APPROVED REPORT Date of service: 10/02/2017 EKG Measurement Heart [id number] <Conclusion> Electronic ventricular pacemaker
[2017-10-03] MEDS ORDERED: SALMETEROL XINAFOATE IH SCH (10:00)
[2017-10-03] MEDS ORDERED: FLUTICASO IH SCH (10:00)
[2017-10-03] MEDS ORDERED: OMEGA PO SCH (10:00)
[2017-10-03] MEDS ORDERED: DHA PO SCH (10:00)
[2017-10-03] MEDS ORDERED: EPA PO SCH (10:00)
[2017-10-03] MEDS ORDERED: FISH OIL PO SCH (10:00)
[2017-10-03] MEDS ORDERED: MULTIVITAMIN WITH IRON PO SCH (10:00)
[2017-10-03] MEDS ORDERED: DICLOFENAC SODIUM APPL TOP SCH (10:00)
[2017-10-03] MEDS ORDERED: Non Formulary Medication (Cetirizine Hcl [Zyrtec] 10 MG) PO SCH (10:00)
--- NOTE | 2017-10-03 10:10 | RAD ---
Date of service: 10/03/2017 PROCEDURE: Right Foot Radiographs. HISTORY: pain COMPARISON: None. FINDINGS: BONES: There is diffuse bone demineralization. There is no acute displaced fracture or bone destruction. No evidence for bony erosion. There is an old fracture deformity in the 5th metatarsal. JOINTS: Normal. SOFT TISSUES: There is soft tissue irregularity, defect and soft tissue emphysema in the medial plantar foot. OTHER FINDINGS: There are atherosclerotic vascular calcifications. IMPRESSION: Findings are most compatible with cellulitis in the medial plantar foot. No radiographic evidence for osteomyelitis.
[2017-10-03] MEDS: Omega-3-Acid Ethyl Esters 1 GM Cap PO SCH ×2 (10:28→18:09)
[2017-10-03] MEDS: Pantoprazole 40 mg EC Tab PO SCH (10:28)
[2017-10-03] MEDS: Multivitamin Therapeutic Tab PO SCH (10:37)
[2017-10-03] MEDS: FLUTICASO IH SCH (10:38)
[2017-10-03] MEDS: SALMETEROL XINAFOATE IH SCH (10:38)
[2017-10-03] MEDS: DICLOFENAC SODIUM APPL TOP SCH (10:39)
--- NOTE | 2017-10-03 10:44 | US ---
PROCEDURE: Lower extremity ASHANTI exam HISTORY: End-stage renal disease. Severe peripheral vascular disease. Progressive gangrene right foot. Since right anterior tibial angioplasty PHYSICIAN(S): Alfredo Wynn MD. FINDINGS: The exam is limited by calcified vessels at multiple levels. The resting ABIs are not obtainable. The high thigh pressures and waveforms are relatively normal. The right calf PVR waveform is normal. The right calf PVR waveform augments normally. Left calf PVR waveform does not augment. This could represent subtle left SFA occlusive disease. The right ankle and metatarsal waveforms are are improved compared with August, study. The left ankle and metatarsal waveforms are pulsatile and mildly blunted. IMPRESSION: 1. Improved right distal PVR waveforms compared with the August, study. This implies the right AT angioplasty is patent.
--- NOTE | 2017-10-03 10:46 | US ---
PROCEDURE: Duplex arterial ultrasound of the right distal anterior tibial artery HISTORY: Severe PVD. End-stage renal disease. Progressive gangrene right foot. Recent right anterior tibial artery angioplasty. Evaluate patency PHYSICIAN(S): Alfredo Wynn MD. FINDINGS: There is calcified diffuse disease of the visualized right distal anterior tibial artery. The right anterior tibial artery is patent with biphasic waveforms. No thrombus is seen. IMPRESSION: 1. Patent distal right anterior tibial artery.
[2017-10-03] MEDS ORDERED: CALCIUM ACETATE 1334 MG PO SCH (11:30)
--- NOTE | 2017-10-03 12:47 | CP.PCM.CON ---
<Ismael Jeffers - Last Filed: 10/03/17 23:03> History of Present Illness - History of Present Illness History of Present Illness: Podiatry Consult Note- Dr. Villanueva/Dr. Quevedo 52 year old male with PMH of COPD, CAD with 4 stents, ESRD on HD MWF, IDDM2 and HTN seen and evaluated at bedside for discolored digits on the right foot with wet gangrene. Patient was seen in Wound care clinic by Dr. Villanueva and was sent to the ED because of wet gangrene presentation to the right foot. Patient reports pain to the right foot. Denies any recent N/V/F/C/CP/SOB/D/posterior calf pain when squeezed. No other pedal complains at this time. PMH: COPD, CAD with 4 stents, ESRD on HD MWF, IDDM2 and HTN PSH: Multiple cardiac caths, left cornea transplant and AV fistula in left arm Family History: Mother-CAD, IDDM2, HTN Social history: Denies tobacco, alcohol or illicit drug use; Lives at home with mother Allergies: insulin aspart, moxifloxacin, penicillin Past Patient History - Infectious Disease Hx of Infectious Diseases: None - Tetanus Immunizations Tetanus Immunization: Up to Date - Past Medical History & Family History Past Medical History?: Yes - Past Social History Smoking Status: Never Smoked - CARDIAC Hx Cardiac Disorders: Yes Hx Cardia Arrhythmia: No Hx Circulatory Problems: Yes Hx Congestive Heart Failure: Yes Hx Hypertension: Yes Hx Pacemaker: Yes ([employer]) Hx Peripheral Edema: Yes Hx Peripheral Vascular Disease: Yes - PULMONARY Hx Respiratory Disorders: Yes Hx Asthma: Yes Hx Bronchitis: Yes Hx Chronic Obstructive Pulmonary Disease (COPD): Yes Hx Emphysema: No Hx Pneumonia: Yes Hx Sleep Apnea: Yes (c pap 2) - NEUROLOGICAL Hx Neurological Disorder: Yes HX Cerebrovascular Accident: Yes Hx Dizziness: Yes Hx Transient Ischemic Attacks (TIA): Yes Other/Comment: Peripheral Neuropathy - HEENT Hx HEENT Problems: Yes (BILATERAL EYE WITH BLURRY VISION) Hx Cataracts: Yes (HAD SX 05/29/12) Hx Epistaxis: Yes Other/Comment: left eye cornea transplant,RENAL RETINOPATHY, glasses - RENAL Hx Chronic Kidney Disease: Yes Hx Dialysis: Yes (ESRD on HD MWF) Hx Kidney Stones: Yes Hx Renal Failure: Yes - ENDOCRINE/METABOLIC Hx Endocrine Disorders: Yes Hx Diabetes Mellitus Type 2: Yes Hx Hypothyroidism: Yes - HEMATOLOGICAL/ONCOLOGICAL Hx Blood Disorders: Yes Hx Anemia: Yes (With transfusions) - INTEGUMENTARY Hx Dermatological Problems: Yes - MUSCULOSKELETAL/RHEUMATOLOGICAL Hx Musculoskeletal Disorders: Yes Hx Arthritis: Yes Hx Back Pain: Yes Hx Falls: Yes Hx Fractures: Yes Hx Gout: Yes Hx Spinal Stenosis: Yes Hx Unsteady Gait: Yes - GASTROINTESTINAL Hx Gastrointestinal Disorders: Yes Hx Gall Bladder Disease: Yes (CHOLECYSTECTOMY) Hx Gastroesophageal Reflux: Yes Hx Liver Failure: Yes (CKD) Hx Pancreatitis: Yes - GENITOURINARY/GYNECOLOGICAL Hx Genitourinary Disorders: Yes Hx Hematuria: Yes Hx Prostate Problems: Yes Hx Urinary Tract Infection: Yes Other/Comment: Hematuria,BPH,UTI - PSYCHIATRIC Hx Psychophysiologic Disorder: Yes Hx Anxiety: Yes Hx Depression: No Hx Substance Use: No - SURGICAL HISTORY Hx Cholecystectomy: Yes (08/15/12) Hx Coronary Stent: Yes (x2 monday06/13/17) - ANESTHESIA Hx Anesthesia: Yes Hx Anesthesia Reactions: No Hx Malignant Hyperthermia: No Meds Allergies/Adverse Reactions: Allergies Allergy/AdvReac Type Severity Reaction Status Date / Time insulin aspart [From Novolog] Allergy Intermediate RASH Verified 10/02/17 19:52 moxifloxacin Allergy Intermediate RASH Verified 10/02/17 19:52 Penicillins Allergy Intermediate RASH Verified 10/02/17 19:52 insulin regular Allergy ITCHING Verified 10/02/17 19:52 [From Novolin R Regular U-100 Insuln] - Medications Medications: Current Medications Albuterol/Ipratropium (Duoneb 3 Mg/0.5 Mg (3 Ml) Ud) 3 ml IH [id number] [facility] Aspirin (Ecotrin) 81 mg PO DAILY [facility] Last Admin: 10/03/17 10:36 Dose: 81 mg Atorvastatin Calcium (Lipitor) 40 mg PO DIN [facility] Calcium Acetate (Phoslo) 1,334 mg PO WM [facility] Ergocalciferol (Drisdol 50,000 Intl Units Cap) 1 cap PO WED [facility] Fenofibrate (Tricor) 145 mg PO DAILY [facility] Last Admin: 10/03/17 10:28 Dose: 145 mg Glipizide (Glucotrol) 10 mg PO DAILY [facility] Last Admin: 10/03/17 10:28 Dose: 10 mg Hydralazine HCl (Apresoline) 25 mg PO BID [facility] Last Admin: 10/03/17 10:35 Dose: 25 mg Insulin Human NPH (Humulin N) 60 units SC QPM [facility] Insulin Human Regular (Humulin R Low) 0 units SC ACHS [facility] PRN Reason: Protocol Levothyroxine Sodium (Synthroid) 25 mcg PO 0600 [facility] Loratadine (Claritin) 10 mg PO DAILY [facility] Last Admin: 10/03/17 10:36 Dose: 10 mg Metoprolol Tartrate (Lopressor) 50 mg PO QPM [facility] Montelukast Sodium (Singulair) 10 mg PO HS [facility] Morphine Sulfate (Morphine) 2 mg IVP Q6H PRN PRN Reason: Pain, severe (8-10) Last Admin: 10/03/17 06:22 Dose: 2 mg Multivitamins (Thera Tab) 1 tab PO DAILY [facility] Last Admin: 10/03/17 10:37 Dose: 1 tab Non-Formulary Medication (Bimatoprost [Lumigan]) 1 drp OU HS [facility] Non-Formulary Medication (Diclofenac Sodium [Voltaren]) 1 appl TOP DAILY [facility] Last Admin: 10/03/17 10:39 Dose: Not Given Non-Formulary Medication (Salmeterol Xinafoate/Fluticaso [Advair Hfa 230-21]) 1 puff IH BID [facility] Last Admin: 10/03/17 10:38 Dose: Not Given Rolhm-0-Cxcy Ethyl Esters (Lovaza) 2 gm PO BID [facility] Last Admin: 10/03/17 10:28 Dose: 2 gm Ondansetron HCl (Zofran Inj) 4 mg IVP Q6H PRN PRN Reason: Nausea/Vomiting Pantoprazole Sodium (Protonix Ec Tab) 40 mg PO DAILY [facility] Last Admin: 10/03/17 10:28 Dose: 40 mg Pregabalin (Lyrica) 50 mg PO HS [facility] Sevelamer HCl (Renagel) 1,600 mg PO TID [facility] Last Admin: 10/03/17 10:28 Dose: 1,600 mg Sodium Chloride ([place] Nasal [place]) 1 ml NS Q2H PRN PRN Reason: Nasal congestion Tamsulosin HCl (Flomax) 0.4 mg PO DAILY [facility] Last Admin: 10/03/17 10:28 Dose: Not Given Ticagrelor (Brilinta) 90 mg PO BID [facility] Last Admin: 10/03/17 10:36 Dose: 90 mg Physical Exam - Constitutional Appears: Well, Non-toxic, No Acute Distress - Extremities Exam Extremities exam: Negative for: calf tenderness Additional comments: Right Lower extremity focused exam: Vasc: DP/PT pulses are faintly palpable 1/4. Cap refill time: < 3 sec to all digits; Temp gradient: warm to cool with patches of warmth from proximal to distal, mild non-pitting edema noted on the right LE Derm: gangrene changes noted to the RLE digit 1 and 3, mild drainage expressed during deep palpation of the medial arch, uriel-wound erythema noted to the forefoot, no streaking, no fluctuance,, no tunneling, no probe to bone or undermining. Neuro: Epicritic and protective sensation grossly absent b/l Ortho: No tenderness to palpation of left foot sub met 1 ulceration or right heel fissure. No other gross deformities noted - Neurological Exam Neurological exam: Alert, Oriented x3 - Psychiatric Exam Psychiatric exam: Normal Affect, Normal Mood Results - Vital Signs Recent Vital Signs: Last Vital Signs Temp 99 F 10/03/17 06:00 Pulse 76 10/03/17 10:35 Resp 20 10/03/17 06:00 BP 129/65 10/03/17 10:35 Pulse Ox 97 10/03/17 06:00 - Labs Result Diagrams: 10/02/17 21:20 10/02/17 21:20 Labs: Laboratory Results - last 24 hr 10/03/17 10/03/17 10/03/17 01:16 06:48 11:24 POC Glucose (mg/dL) 185 H 219 H 300 H Assessment & Plan - Assessment and Plan (Free Text) Assessment: 52 year old male was seen and evaluated for wet gangrene to hallux and 3rd digit on the right foot Plan: Patient seen and evaluated at bedside Discussed plan in detail with attending Dr. Villanueva Afebrile, absent leukocytosis X-ray right foot- cellulitis of medial plantar arch. No OM Arterials- improved right distal PVR waveforms compared with August 2017 study. This implies the right AT angioplasty is patent Cleansed ulceration of right foot with betadine and saline solution, dressed with betadine, dsd, and kerlix Explained to patient about procedure, benefits, alternatives, and complications and patient opts for surgical intervention Patient to go to the OR tomorrow at 4:30pm for a Right TMA by Dr. Villanueva Please provide medical clearance- thank you NPO status after breakfast tomorrow Thank you for allowing us to participate in patient's care <Deborah Villanueva - Last Filed: 10/08/17 16:45> Meds - Medications Medications: Current Medications Albuterol/Ipratropium (Duoneb 3 Mg/0.5 Mg (3 Ml) Ud) 3 ml IH [id number] [facility] Last Admin: 10/08/17 14:36 Dose: 3 ml Aspirin (Ecotrin) 81 mg PO DAILY [facility] Last Admin: 10/08/17 09:04 Dose: 81 mg Atorvastatin Calcium (Lipitor) 40 mg PO DIN [facility] Last Admin: 10/07/17 18:08 Dose: 40 mg Calcium Acetate (Phoslo) 1,334 mg PO WM [facility] Last Admin: 10/08/17 11:48 Dose: 1,334 mg Darbepoetin Jimmie (Aranesp) 100 mcg IVP ONCE ONE Stop: 10/09/17 06:01 Ergocalciferol (Drisdol 50,000 Intl Units Cap) 1 cap PO WED [facility] Last Admin: 10/04/17 12:48 Dose: 1 cap Fenofibrate (Tricor) 145 mg PO DAILY [facility] Last Admin: 10/08/17 09:04 Dose: 145 mg Glipizide (Glucotrol) 10 mg PO DAILY [facility] Last Admin: 10/08/17 09:04 Dose: 10 mg Hydralazine HCl (Apresoline) 25 mg PO BID [facility] Last Admin: 10/08/17 09:07 Dose: Not Given Meropenem 500 mg/ Sodium (Chloride) 50 mls @ 100 mls/hr IVPB Q12 [facility] PRN Reason: Protocol Stop: 10/12/17 14:01 Last Admin: 10/08/17 09:03 Dose: 100 mls/hr Dextrose (Dextrose 10% In Water) 500 mls @ 20 mls/hr IV .Q24H [facility] Last Admin: 10/04/17 13:22 Dose: 20 mls/hr Insulin Human NPH (Humulin N) 50 units SC QPM [facility] Last Admin: 10/07/17 18:07 Dose: Not Given Insulin Human Regular (Humulin R Low) 0 units SC ACHS [facility] PRN Reason: Protocol Last Admin: 10/08/17 11:52 Dose: 1 units Levothyroxine Sodium (Synthroid) 25 mcg PO 0600 [facility] Last Admin: 10/08/17 06:05 Dose: 25 mcg Linezolid (Zyvox) 600 mg PO BID [facility] PRN Reason: Protocol Last Admin: 10/08/17 09:04 Dose: 600 mg Loratadine (Claritin) 10 mg PO [facility] Last Admin: 10/07/17 22:14 Dose: 10 mg Metoprolol Tartrate (Lopressor) 50 mg PO QPM [facility] Last Admin: 10/07/17 18:08 Dose: Not Given Montelukast Sodium (Singulair) 10 mg PO [facility] Last Admin: 10/07/17 22:14 Dose: 10 mg Morphine Sulfate (Morphine) 2 mg IVP Q5H PRN PRN Reason: Pain, severe (8-10) Last Admin: 10/08/17 14:14 Dose: 2 mg Multivitamins (Thera Tab) 1 tab PO DAILY [facility] Last Admin: 10/08/17 09:04 Dose: 1 tab Non-Formulary Medication (Bimatoprost [Lumigan]) 1 drp OU [facility] Last Admin: 10/08/17 00:20 Dose: Not Given Non-Formulary Medication (Diclofenac Sodium [Voltaren]) 1 appl TOP DAILY [facility] Last Admin: 10/08/17 09:05 Dose: Not Given Non-Formulary Medication (Salmeterol Xinafoate/Fluticaso [Advair Hfa 230-21]) 1 puff IH BID [facility] Last Admin: 10/08/17 09:26 Dose: Not Given Avcog-5-Rcsw Ethyl Esters (Lovaza) 2 gm PO BID [facility] Last Admin: 10/08/17 09:03 Dose: 2 gm Ondansetron HCl (Zofran Inj) 4 mg IVP Q6H PRN PRN Reason: Nausea/Vomiting Oxycodone/Acetaminophen (Percocet 10/325 Mg Tab) 1 tab PO Q6H PRN PRN Reason: Pain, moderate (4-7) Pantoprazole Sodium (Protonix Ec Tab) 40 mg PO 0600 [facility] Last Admin: 10/08/17 06:05 Dose: 40 mg Pregabalin (Lyrica) 50 mg PO [facility] Last Admin: 10/07/17 22:14 Dose: 50 mg Sevelamer HCl (Renagel) 1,600 mg PO WM [facility] Last Admin: 10/08/17 11:48 Dose: 1,600 mg Sodium Chloride ([place] Nasal [place]) 1 ml NS Q2H PRN PRN Reason: Nasal congestion Last Admin: 10/07/17 12:57 Dose: 1 spr Tamsulosin HCl (Flomax) 0.4 mg PO HS [facility] Last Admin: 10/07/17 22:14 Dose: 0.4 mg Ticagrelor (Brilinta) 90 mg PO BID [facility] Last Admin: 10/03/17 18:10 Dose: 90 mg Results - Vital Signs Recent Vital Signs: Last Vital Signs Temp 98.5 F 10/08/17 14:00 Pulse 64 10/08/17 14:00 Resp 18 10/08/17 14:00 BP 101/42 L 10/08/17 14:00 Pulse Ox 98 10/08/17 14:00 - Labs Result Diagrams: 10/08/17 07:00 10/08/17 07:00 Labs: Laboratory Results - last 24 hr 10/07/17 10/08/17 10/08/17 07:30 07:00 07:00 WBC 8.5 RBC 2.73 L Hgb 7.7 L Hct 24.4 L MCV 89.4 MCH 28.2 MCHC 31.6 RDW 18.7 H Plt Count 141 MPV 11.6 H Haptoglobin 140.5 Sodium 133 Potassium 5.3 H Chloride 96 L Carbon Dioxide 27 Anion Gap 16 BUN 38 H Creatinine 6.3 H Est GFR ( Amer) 11 Est GFR (Non-Af Amer) 9 Random Glucose 140 H Calcium 8.6 Lactate Dehydrogenase 620 Attending/Attestation - Attestation I have personally seen and examined this patient.: Yes I have fully participated in the care of the patient.: Yes I have reviewed all pertinent clinical information: Yes
[2017-10-03] MEDS: Insulin Reg-LOW-Coverage SC SCH ×3 (12:58→22:00)
--- NOTE | 2017-10-03 13:03 | CARD ---
APPROVED REPORT Date of service: 10/03/2017 EXAM: Two-dimensional and M-mode echocardiogram with Doppler and color Doppler. INDICATION Infection:Rule out subacute bacterial endocarditis 2D DIMENSIONS Left Atrium (2D)4.8 (1.6-4.0cm)IVSd1.6 (0.7-1.1cm) LVDd5.7 (3.9-5.9cm)LVOT Diameter2.1 (1.8-2.4cm) PWd1.5 (0.7-1.1cm)LVDs3.7 (2.5-4.0cm) FS (%) 35.4 %LVEF (%)64.1 (>50%) M-Mode DIMENSIONS Aortic Root3.10 (2.2-3.7cm)Aortic Cusp Exc.1.40 (1.5-2.0cm) Aortic Valve AoV Peak Itwavffw008.0cm/sAoV VTI73.4cmAO Peak GR.45mmHg LVOT Peak Zkygiubq833.0cm/sLVOT VTI29.20cmAO Mean GR.20mmHg TEJA (VMAX)1.11xt0QXJ (VTI)1.16xx8TW P 1/2 Vbfz374eo Mitral Valve E/A ratio0.0 TDI E/Lateral E'0.0E/Medial E'0.0 Pulmonary Valve PV Peak Xloxemiw65.8cm/sPV Peak Grad.4mmHg Tricuspid Valve TR Peak Dlafkywl831at/sRAP ECTSLPQD46tzJyRJ Peak Gr.65mmHg [id number] LEFT VENTRICLE The left ventricle is normal size. There is mild concentric left ventricular hypertrophy. The left ventricular function is normal.EF-60-65% There is normal LV segmental wall motion. The left ventricular diastolic function is normal. No left ventricle thrombus noted on this study. There is no ventricular septal defect visualized. There is no left ventricular aneurysm. There is no mass noted in the left ventricle. RIGHT VENTRICLE The right ventricle is mildly dilated. There is normal right ventricular wall thickness. Systolic function is mildly reduced. There is a pacemaker lead in the right ventricle. ATRIA The left atrium is mildly dilated. The right atrium is mildly dilated. There is a catheter/pacemaker lead seen in the right atrium. The interatrial septum is intact with no evidence for an atrial septal defect. AORTIC VALVE The aortic valve is calcified and displays decreased opening. The aortic valve is moderately sclerotic. There is moderate to severe aortic regurgitation. There is mild to moderate valvular aortic stenosis. Echogenic Mobile structure attached to Aortic valve leaflet with same consistency of valve , can not R/o Vegetation VS degenerative chaoges. MITRAL VALVE The mitral valve is thickened but opens well. Mitral regurgitation is mild to moderate. There is no mitral valve stenosis. There is no evidence of mitral valve prolapse. TRICUSPID VALVE The tricuspid valve leaflets are thickened , but open well. There is moderate to severe tricuspid regurgitation.RVSP-75 mmof hg There is no tricuspid valve stenosis. There is no tricuspid valve prolapse or vegetation. PULMONIC VALVE The pulmonic valve is mildly thickened. There is mild pulmonic valvular regurgitation. There is no pulmonic valvular stenosis. GREAT VESSELS The aortic root is normal in size. The ascending aorta is normal in size. The pulmonary artery is normal. The IVC is normal in size and collapses >50% with inspiration. PERICARDIAL EFFUSION There is no pleural effusion. Trivial pericardial effusion <Conclusion> The left ventricle is normal size. There is mild concentric left ventricular hypertrophy. The left ventricular function is normal.EF-60-65% There is moderate to severe aortic regurgitation. There is mild to moderate valvular aortic stenosis. Mitral regurgitation is mild to moderate. There is moderate to severe tricuspid regurgitation.RVSP-75 mmof hg There is mild pulmonic valvular regurgitation. The IVC is normal in size and collapses >50% with inspiration. Trivial pericardial effusion Echogenic Mobile structure attached to Aortic valve leaflet with same consistency of valve , can not R/o Vegetation VS degenerative chaoges., corelate clinically, F/u blood C&S.
[2017-10-03] MEDS: Albuterol-Ipratrop 3 mg / 0.5 (3 ml) UD IH SCH ×2 (13:23→19:48)
[2017-10-03] MEDS ORDERED: Vancomycin 1gm in NS 250ml 1 GM/250 ML BAG IVPB STA (14:00)
[2017-10-03] MEDS: Meropenem 500 MG in Sodium Chloride 0.9% 50 ML IVPB SCH (16:43)
[2017-10-03] MEDS: Insulin Human NPH 1 UNITS/0.01 ML SC SCH (18:14)
--- NOTE | 2017-10-03 18:14 | CON ---
DATE: 10/03/2017 SERVICE: Cardiology. REASON FOR CONSULTATION: Cardiac evaluation, admitted with diabetic foot, right toe gangrene, questionable history of vegetation on pacemaker at [facility]. BRIEF CLINICAL HISTORY: This is a 52-year-old male with past medical history significant for peripheral arterial disease, coronary artery disease, history of multiple stent, history of sick sinus syndrome, status post permanent pacemaker, recently admitted to the [facility] with diabetic foot suggested amputation, first great toe then later suggested below-knee amputation. Family intervened and stop amputation. Also patient was told that he has a vegetation on the pacemaker site, but patient discharged and was sent home. Yesterday, the patient called Dr. Villanueva for foot gangrenes, advised to come to the hospital. The patient denies any chest pain, shortness of breath. The patient was seen in the room 561, bed 1, on way to ultrasound. The patient denies any chest pain, shortness of breath, or any palpitation. PAST MEDICAL HISTORY: Significant for diabetes secondary to diabetes leading to diabetic nephropathy, neuropathy, retinopathy; history of end-stage renal disease, on dialysis on Monday, Monday, and Monday; history of COPD; history of pancreatitis; history of hypertriglyceridemia; very noncompliant patient; history of multiple stent; history of CVA; history of sick sinus syndrome, status post permanent pacemaker; history of spinal stenosis; history of peripheral arterial disease. PREVIOUS CARDIAC WORKUP: As follows, history of recent PTCA of LAD on 06/12/2017, and found to be resistant to Plavix. 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 Prior to that patient FFR was done, found with significant disease in the LAD. The patient's last echo done on 06/12/2017, that showed ejection fraction 55%, mild aortic regurgitation, mild valvular aortic stenosis, mild mitral regurgitation, moderate tricuspid regurgitation, RV systolic pressure is consistent with severe pulmonary hypertension. Mild by echo, but no aortic stenosis by cardiac catheterization. The patient underwent dual chamber pacemaker done on 06/27/2017, which was MRI safe, when the patient presented with junctional bradycardia and symptomatic recurrent syncope. The patient is resistant to Plavix and currently on Brilinta. The patient had intracerebral bleed and subdural hematoma and Brilinta was held for 10 days. SOCIAL HISTORY: Denies smoking. Denies any history of alcohol abuse. CURRENT MEDICATIONS: The patient is taking at home hydralazine 20 mg daily, Brilinta 90 mg daily, aspirin, insulin, metoprolol 50 mg, levothyroxine, multivitamin, and fenofibrate. ALLERGIES: NOVOLOG, MOXIFLOXACIN, PENICILLIN AND REGULAR INSULIN. REVIEW OF SYSTEMS: As per HPI. PHYSICAL EXAMINATION: VITAL SIGNS: As follows, temperature afebrile, heart rate 76, blood pressure 128/65. HEENT: PERRLA. Extraocular muscles intact. NECK: Supple. No carotid bruit. No thyromegaly. CHEST: Clear to auscultation. HEART: S1 and S2, regular. ABDOMEN: Soft. EXTREMITIES: Clubbing and cyanosis negative. Right foot is in dressing, removed the socks, but the patient has a dressing, so I could not see the gangrene toe. DIAGNOSTIC DATA: Chest is normal, had a pacemaker on the left side of the chest. LABORATORY DATA: Blood workup as follows, WBC 9, hemoglobin 8.9, hematocrit 27.6, and platelet count 230. Chemistry shows sodium 139, potassium 4.1, chloride 97, carbon dioxide 32, anion gap of 16, BUN 26, creatinine 3.6. Albumin 3.2, globulin 4.2, albumin-globulin ratio 0.6. EKG shows normal sinus, acute ST-T wave changes noted, V-paced rhythm with underlying normal sinus. IMPRESSION: A 52-year-old male with past medical history significant for diabetes, diabetic retinopathy, neuropathy, end-stage renal disease on dialysis, history of coronary artery disease, status post multiple stent recently, stent in left anterior descending in May 2017, history of pacemaker in June 2017, recent history of fall and subdural hematoma and on hold Brilinta about 2 weeks, now put back on Brilinta and aspirin. Admitted to [facility] recently with the toe gangrene requiring amputation. Family refused and admitted here, questionable history of vegetation on the told at [facility]. RECOMMENDATION: We will get ASHANTI PVR to see the significant of peripheral arterial disease. Continue the current medication. Continue Brilinta, aspirin and rest of the baseline medication. We will get echo to assess and rule out any vegetation as he is told in [facility]. Continue broad spectrum antibiotics. Overall patient's condition is critical. Long-term prognosis is extremely guarded. We will follow with you. Discussed with the patient. Discussed with the patient's and significant. Jarred Erickson MD
[2017-10-03] MEDS: BIMATOPROST OU SCH (22:00)
[2017-10-03] MEDS ORDERED: BIMATOPROST OU SCH (22:00)
--- NOTE | 2017-10-03 22:39 | CON ---
DATE: 10/03/2017 PATIENT ADMITTED FOR: Diana Kessler MD. REFERRING MD: Diana Kessler MD. REASON FOR CONSULTATION: To provide dialysis services for patient admitted with peripheral vascular disease and gangrenous changes in his right lower extremity. HISTORY OF PRESENT ILLNESS: Patient is a pleasant 52-year-old male with a history of end-stage renal disease on chronic maintenance hemodialysis, history of IDDM with history of diabetic nephropathy. History of peripheral vascular disease with gangrenous changes of his right lower extremity. Patient was scheduled for a possible BKA at [facility], but he refused to do this. Patient currently returns to [facility] for debridement of the gangrenous toes, for IV antibiotic therapy. He hopes to preserve his foot. He did have Doppler studies done of the right lower extremity, which showed patent stents. He has a history of ASHD status post permanent pacemaker for bradycardia. History of drug eluding stents and PTCA. History of aortic stenosis, aortic insufficiency, mitral regurgitation, tricuspid regurgitation. History of anemia secondary to chronic kidney disease, secondary hyperparathyroidism, history of pulmonary hypertension. He is status post a recent subdural hemorrhage in 07/2017 status post a fall. He does have RENATA and uses CPAP therapy. Patient comes in for antibiotic therapy, for vascular evaluation by Interventional Radiology, for podiatric evaluation and local wound care and IV antibiotic therapy. He hopes to preserve his right foot. PAST MEDICAL HISTORY: Significant for end-stage renal disease on chronic maintenance hemodialysis, history of IDDM with micro and macrovascular complications, history of diabetic nephropathy, history of coronary artery disease status post PTCA with drug-eluting stent, history of valvular heart disease as noted above. Status post permanent pacemaker for bradycardia. History of anemia secondary to chronic kidney disease, secondary hyperparathyroidism, pulmonary hypertension, history of a subdural hemorrhage secondary to a fall in 07/2017, history of peripheral vascular disease secondary to diabetes. History of RENATA. Patient has a working left upper extremity AV fistula. MEDICATIONS AT HOME: Include that of fish oil, DuoNeb, insulin, Glucotrol, TriCor, vitamin D, Voltaren, Zyrtec, PhosLo, Lumigan, Lipitor, Ecotrin, Renagel, Advair, Lyrica, Protonix, multivitamins, Singulair, Lopressor, Levoxyl, Apresoline, Brilinta, Flomax, and Wayne nasal spray. ALLERGIES: PATIENT IS ALLERGIC TO INSULIN ASPART FROM NOVOLOG, MOXIFLOXACIN, PENICILLIN, AND REGULAR INSULIN FROM NOVOLIN. CURRENT MEDICATIONS IN HOSPITAL: Include that of hydralazine, Lumigan, Brilinta, Claritin, Voltaren, vitamin D, DuoNeb, Ecotrin, Flomax, Glucotrol, Humulin R, Humulin N, Lipitor, Lopressor, Lovaza, Lyrica, meropenem, morphine p.r.n., Wayne nasal spray, PhosLo, Protonix, Renagel, Advair, Singulair, Synthroid, Thera-Tabs, TriCor, and Zofran p.r.n. SOCIAL HISTORY: No history of cigarette smoking. No history of alcohol use. FAMILY HISTORY: Mother has diabetes and is on dialysis two times a week. Father at an early age from disease unknown to patient. REVIEW OF SYSTEMS: GENERAL: Patient states appetite and weight have been stable. ENT: Denies any hearing or visual problems. PULMONARY: No history of shortness of breath. No history of CHF. No history of asthma, bronchitis, or emphysema. CARDIAC: History of ASHD as noted above. GI: No constipation, no diarrhea. No nausea, vomiting, or abdominal pain. : Negligible urine output. Positive end-stage renal disease on chronic dialysis. ENDOCRINE: Positive for diabetes with micro and macrovascular complications. Patient is on insulin and oral agents. MUSCULOSKELETAL: No complaints. NEUROLOGICAL: History of diabetic neuropathy. HEMATOLOGY/ONCOLOGY: History of anemia secondary to chronic kidney disease. PSYCHIATRIC: History is negative. PHYSICAL EXAMINATION: GENERAL: Patient is currently seen on 5R. He is lying comfortable supine in bed, receiving IV antibiotic therapy. VITAL SIGNS: Blood pressure 129/65, temperature 99, respiratory rate is 18, pulse is 76. HEENT: Exam shows him to be normocephalic, atraumatic. Conjunctivae are pale. Sclerae are nonicteric. Pupils equal and reactive to light. Extraocular muscles are intact. Posterior pharynx is normal. NECK: Supple. No neck vein distention. No thyromegaly. No lymphadenopathy. No bruits. CHEST: Clear to auscultation and percussion with no rales, rhonchi, or wheezing. CARDIOVASCULAR: Shows a regular rate and rhythm with permanent pacemaker. Positive /AI/MR/TR. No ST, no S4, no rub. ABDOMEN: Soft. Bowel sounds normal. Mild obesity. No distention. No rebound or guarding. EXTREMITIES: Show a dressing over his right lower extremity from the ankle down. No appreciable edema. Diminished lower extremity pulses by history. Positive left upper extremity AV fistula. No visible cyanosis or clubbing noted. NEUROLOGICAL: Shows him to be alert, oriented x3 with no gross focal motor or sensory deficits noted. IMAGING STUDIES: Admitting chest x-ray showed mild pulmonary vascular congestion. Admitting Doppler study of his lower extremity showed patent stents in his right lower extremity. X-ray of his right foot shows soft tissue irregularity, soft tissue emphysema, vascular calcifications, and no destruction of bone; however, patient has diffuse bone demineralization. Old fracture of the right fifth metatarsal. LABORATORY DATA: CBC: White blood cell count 9, hemoglobin stable 8.9, platelet count is 230,000. Coags: PT of 19.3, PTT of 32. Chemistry showed normal electrolytes, BUN 26 with creatinine of 3.6. This is yesterday's labs. Last glucose is 281. Calcium, phosphorus, magnesium level are normal. Albumin level is 3.2. Microbiology: No data available for comment. Echocardiogram done at the time of admission showed a normal left ventricle size, mild concentric LVH. Ejection fraction 60 to 65%. Lkhfmcuo-az-hxbslw aortic regurgitation, ewxp-gj-lpiengyo valvular aortic stenosis. Mitral regurgitation, mild to moderate. Udrd-og-vnirtj tricuspid regurgitation with pulmonary pressures which are elevated, RVSP is 75 mmHg. Trivial pericardial effusion. Echogenic mobile structure attached to the aortic valve leaflet with same consistency of the valve. Possible vegetation versus generative changes of the valve with calcium deposition. ASSESSMENT: 1. End-stage renal disease. Patient will continue Kwlsio-Wctiekore-Yhcaci dialysis. 2. History of peripheral vascular disease, right lower extremity. Patient will continue to be evaluated and followed by Interventional Radiology, Infectious Disease, and Podiatry. 3. History of arteriosclerotic heart disease with valvular heart disease. Unclear whether or not patient has a vegetation adherent to his aortic valve. Further workup as per Cardiology. For right now, he will remain on antibiotic therapy. 4. History of insulin-dependent diabetes mellitus with multiple micro and macrovascular complications. Patient will continue present insulin regimen. 5. History of anemia. We will increase Aranesp on dialysis to maximum dose. Check iron, TIBC, and ferritin levels. IV Venofer on an as-needed basis. This will not be started until we make certain that blood cultures are negative. 6. History of secondary hyperparathyroidism. Patient appears to be on two binders at this time. He is on PhosLo and Renagel. We will continue to follow phosphorus levels with dialysis. He, in all likelihood, does not require two binders. 7. History of symptomatic bradycardia status post permanent pacemaker, stable. 8. History of subdural hematoma, stable. Patient had close followup for this back in 07/2017 status post a fall. 9. History of obstructive sleep apnea. Patient will start CPAP therapy. PLAN: 1. Close followup by Vascular/Interventional Radiology/Podiatry. 2. Goal here is to try and debride the gangrenous toes and avoid an amputation. 3. Continue Micazq-Qovpzuijh-Oqxskp dialysis. 4. Check iron, TIBC, ferritin, and decide on IV Venofer. 5. Maximize Aranesp dose. 6. Monitor phosphorus level and choose one binder instead of the need for the patient to be on two binders. 7. Further Cardiology followup for possible calcific vegetation adjacent to his aortic valve. Thank you for letting me partake and share in the care of our mutual patient. Toy Martinez MD
--- NOTE | 2017-10-03 22:58 | CON ---
DATE: 10/03/2017 LOCATION: The patient was seen earlier this morning in room 561 at bed 2. CHIEF COMPLAINT: Patient has a right foot infection times several days. HISTORY OF PRESENT ILLNESS: This is a 52-year-old male known to me from multiple admissions with past medical history significant for end-stage renal disease on hemodialysis, congestive heart failure, chronic obstructive lung disease, diabetes mellitus, hypertension, history of pancreatitis, was admitted now with the right foot infection. He has been cared for by Dr. Villanueva. REVIEW OF SYSTEMS: Reveals he has low-grade fevers and weakness. No chest pain or shortness of breath. There is mild cough. No abdominal pain or diarrhea. No headaches or blurred vision. Review of systems reveals a 12-point review of systems is performed. PAST MEDICAL HISTORY: Significant for diabetes mellitus, end-stage renal disease on hemodialysis, congestive heart failure, chronic obstructive lung disease, hypertension, pancreatitis, cataracts. PAST SURGICAL HISTORY: Significant for cardiac catheterization, cholecystectomy. ALLERGIES: PATIENT IS ALLERGIC TO PENICILLIN, MOXIFLOXACIN, INSULIN. MEDICATIONS: At home are reviewed and include insulin, vitamins, Protonix, Brilinta, Flomax. PHYSICAL EXAMINATION: GENERAL: The patient is in bed, no acute distress, answering questions appropriately early this morning. VITAL SIGNS: Temperature of 99, pulse rate of 75, blood pressure is 103/50, respiratory rate of 20. HEENT: Unremarkable. NECK: Supple. LUNGS: Have decreased breath sounds. HEART: Normal S1, S2. ABDOMEN: Soft, nontender. No organomegaly. No rebound. No guarding. No masses. EXTREMITIES: Examination of the foot as per chaser tar prescription, there is some discoloration of the right foot and wet gangrene. ASSESSMENT AND PLAN: This is a 52-year-old male who was diabetic and hypertensive, pancreatitis, cataract, congestive heart failure, end-stage renal disease on hemodialysis, now with right foot cellulitis and gangrene, must rule out underlying peripheral with osteomyelitis and we will order vancomycin and meropenem and we will make further recommendations upon availability of initial culture results and we will follow closely with you. underlying osteomyelitis, Vascular and Podiatric consultation. Jaspreet Boghossian, MD
[2017-10-04] MEDS ORDERED: Morphine 2 mg/ml ISec IVP STA (00:12)
[2017-10-04] MEDS: Morphine 2 mg/ml ISec IVP PRN ×3 (05:59→15:40)
[2017-10-04] MEDS: Levothyroxine 25 MCG TAB PO SCH (05:59)
[2017-10-04] MEDS ORDERED: Darbepoetin Alfa 100 mcg/ml Inj IVP ONE (06:00)
[2017-10-04] MEDS: Albuterol-Ipratrop 3 mg / 0.5 (3 ml) UD IH SCH ×2 (07:03→13:40)
--- NOTE | 2017-10-04 07:33 | CP.PCM.PN ---
Subjective - Date & Time of Evaluation Date of Evaluation: 10/04/17 Time of Evaluation: 06:40 - Subjective Subjective: Awake,alert,no distress, for possible toe surgery today Reason for consultation and follow up:Cardiac evaluation for questionable history of vegetation on pacemaker when he was at [facility] [place]. Admitted for right toe ulcer/gangrene. History of peripheral arterial disease, coronary artery disease with multiple stents, sick sinus syndrome with PPM, history of fall with subdural hematoma and was on Brilinta at that time.(held off Brilinta for 2 weeks then resumed due to recent stent placement) Seen and examined by me and Dr. Erickson Objective - Vital Signs/Intake and Output Vital Signs (last 24 hours): Temp Pulse Resp BP Pulse Ox 98 F 64 18 123/49 L 100 10/03/17 22:00 10/03/17 22:00 10/03/17 22:00 10/03/17 22:00 10/03/17 22:00 Intake and Output: 10/04/17 10/04/17 06:59 18:59 Intake Total 530 Balance 530 - Medications Medications: Current Medications Albuterol/Ipratropium (Duoneb 3 Mg/0.5 Mg (3 Ml) Ud) 3 ml IH [id number] [facility] Last Admin: 10/04/17 07:03 Dose: 3 ml Aspirin (Ecotrin) 81 mg PO DAILY [facility] Last Admin: 10/03/17 10:36 Dose: 81 mg Atorvastatin Calcium (Lipitor) 40 mg PO DIN [facility] Last Admin: 10/03/17 17:06 Dose: 40 mg Calcium Acetate (Phoslo) 1,334 mg PO WM [facility] Last Admin: 10/03/17 17:06 Dose: 1,334 mg Ergocalciferol (Drisdol 50,000 Intl Units Cap) 1 cap PO WED [facility] Fenofibrate (Tricor) 145 mg PO DAILY [facility] Last Admin: 10/03/17 10:28 Dose: 145 mg Glipizide (Glucotrol) 10 mg PO DAILY [facility] Last Admin: 10/03/17 10:28 Dose: 10 mg Hydralazine HCl (Apresoline) 25 mg PO BID [facility] Last Admin: 10/03/17 17:59 Dose: Not Given Meropenem 500 mg/ Sodium (Chloride) 50 mls @ 100 mls/hr IVPB Q12 [facility] PRN Reason: Protocol Stop: 10/12/17 14:01 Last Admin: 10/03/17 16:43 Dose: 100 mls/hr Insulin Human NPH (Humulin N) 60 units SC QPM [facility] Last Admin: 10/03/17 18:14 Dose: 60 units Insulin Human Regular (Humulin R Low) 0 units SC ACHS [facility] PRN Reason: Protocol Last Admin: 10/03/17 22:00 Dose: Not Given Levothyroxine Sodium (Synthroid) 25 mcg PO 0600 [facility] Last Admin: 10/04/17 05:59 Dose: 25 mcg Loratadine (Claritin) 10 mg PO HS [facility] Last Admin: 10/03/17 22:00 Dose: 10 mg Metoprolol Tartrate (Lopressor) 50 mg PO QPM [facility] Montelukast Sodium (Singulair) 10 mg PO HS [facility] Last Admin: 10/03/17 22:01 Dose: 10 mg Morphine Sulfate (Morphine) 2 mg IVP Q6H PRN PRN Reason: Pain, severe (8-10) Last Admin: 10/04/17 05:59 Dose: 2 mg Multivitamins (Thera Tab) 1 tab PO DAILY [facility] Last Admin: 10/03/17 10:37 Dose: 1 tab Non-Formulary Medication (Bimatoprost [Lumigan]) 1 drp [facility] Last Admin: 10/03/17 22:00 Dose: Not Given Non-Formulary Medication (Diclofenac Sodium [Voltaren]) 1 appl TOP DAILY [facility] Last Admin: 10/03/17 10:39 Dose: Not Given Non-Formulary Medication (Salmeterol Xinafoate/Fluticaso [Advair Hfa 230-21]) 1 puff IH BID [facility] Last Admin: 10/03/17 10:38 Dose: Not Given Rrtcd-0-Mlgh Ethyl Esters (Lovaza) 2 gm PO BID [facility] Last Admin: 10/03/17 18:09 Dose: 2 gm Ondansetron HCl (Zofran Inj) 4 mg IVP Q6H PRN PRN Reason: Nausea/Vomiting Pantoprazole Sodium (Protonix Ec Tab) 40 mg PO DAILY [facility] Last Admin: 10/03/17 10:28 Dose: 40 mg Pregabalin (Lyrica) 50 mg PO [facility] Last Admin: 10/03/17 22:01 Dose: 50 mg Sevelamer HCl (Renagel) 1,600 mg PO TID [facility] Last Admin: 10/03/17 17:07 Dose: 1,600 mg Sodium Chloride ([place] Nasal [place]) 1 ml NS Q2H PRN PRN Reason: Nasal congestion Tamsulosin HCl (Flomax) 0.4 mg PO HS [facility] Last Admin: 10/03/17 22:00 Dose: 0.4 mg Ticagrelor (Brilinta) 90 mg PO BID [facility] Last Admin: 10/03/17 18:10 Dose: 90 mg - Labs Labs: PT 19.3 SECONDS (9.4-12.5) H 10/02/17 21:20 INR 1.68 (0.93-1.08) H 10/02/17 21:20 APTT 32.0 Seconds (25.1-36.5) 10/02/17 21:20 - Constitutional Appears: No Acute Distress - Head Exam Head Exam: NORMOCEPHALIC - Eye Exam Eye Exam: Normal appearance - ENT Exam ENT Exam: Mucous Membranes Moist - Respiratory Exam Respiratory Exam: Clear to Ausculation Bilateral, NORMAL BREATHING PATTERN - Cardiovascular Exam Cardiovascular Exam: +S1, +S2 Additional comments: PPM - GI/Abdominal Exam GI & Abdominal Exam: Soft, Normal Bowel Sounds - Exam Additional comments: ESRD on hemodialysis - Extremities Exam Additional comments: Left arm AV graft positive bruit/thrill right foot wrapped with kerlix. - Neurological Exam Neurological Exam: Alert, Awake, Oriented x3 - Skin Skin Exam: Dry, Warm Assessment and Plan - Assessment and Plan (Free Text) Assessment: A 52 year old male who was admitted due to right toe ulcer/gangrene.Consult was called for evaluation for questionable history of vegetation on pacemaker when he was at [facility] [place]. History of peripheral arterial disease, coronary artery disease with multiple stents, sick sinus syndrome with PPM, history of fall with subdural hematoma and was on Brilinta at that time.(held off Brilinta for 2 weeks then resumed due to recent stent placement) ESRD on hemodialysis, diabetes, diabetic neuropathy, diabetic nephropathy, retinopathy, COPD, history of pancreatitis, hypertriglyceridemia, CVA,spinal stenosis. Recently admitted at [facility] [place] [facility] and recommended amputation of right leg but family refused and discharged. Plan: Cardiac status stable Heart rate and blood pressure controlled No shortness of breath or chest pain No evidence of ischemia or heart failure Cleared from cardiac standpoint to undergo toe surgery ECHO done yesterday-LVEF 60-65% Moderate to severe AR, moderate aortic stenosis moderate MR, moderate to severe TR Echogenic mobile structure attached to aortic valve leaflet, with same consistency of valve, can not rule out vegetation versus degenerative changes, will correlate clinically with blood cultures For hemodialysis prior to surgery Continue current treatment Continue current medications Fall precuation Will follow up Plan and treatment discussed with Dr. Erickson
--- NOTE | 2017-10-04 07:45 | CON ---
DATE: 10/03/2017 PULMONARY CONSULTATION REFERRING PHYSICIAN: Diana Kessler MD REASON FOR CONSULTATION: Chronic lung disease, sleep apnea syndrome, admitted with ischemic right foot. HISTORY OF PRESENT ILLNESS: This is a 52-year-old gentleman known to me from previous admission and office with multiple medical issue including renal failure, dialysis dependent, peripheral neuropathy, peripheral vascular disease, heart failure, chronic lung disease, diabetes, hypertension, seen by Dr. Villanueva as outpatient, was sent to emergency room because of ischemic right foot. The patient became noncompliant with the CPAP and CPAP was returned, does have a shortness of breath, some cough. No nausea, no vomiting, no diarrhea. PAST MEDICAL HISTORY: As per history of present illness, history of anemia, history of transfusion in the past, cardiac arrhythmia requiring pacemaker, also has a history of stroke, history of recurrent epistaxis, nephrolithiasis, hypothyroid. ALLERGIES: TO ASPART INSULIN, MOXIFLOXACIN, PENICILLIN; INSULIN, WHICH IS A REGULAR INSULIN. FAMILY HISTORY: Positive, diabetes, hypertension, heart disease, renal failure. SOCIAL HISTORY: Nonsmoker, nondrinker. MEDICATIONS: He is on hydralazine 25 mg twice a day, Aranesp 100 mcg weekly, Lumigan at bedtime, Brilinta 90 mg p.o. twice a day, Claritin 10 mg at bedtime; Voltaren, affected area; vitamin D 50,000 units weekly, DuoNeb every 6 hour [id number]-[id number], Ecotrin 81 mg daily, Flomax 0.4 mg daily, glipizide 10 mg daily, insulin coverage, Lipitor 40 mg daily, metoprolol tartrate 50 mg daily, Lovaza 2 g twice a day, Lyrica 50 mg at bedtime, meropenem 500 mg twice a day, morphine 2 mg every 6 hour p.r.n., PhosLo with the meals, Protonix 40 mg daily, Renagel 600 mg three times a day, Advair HFA 230/21 one puffs twice a day, Singulair 10 mg daily, Synthroid 25 mcg daily, multivitamins daily, Tricor 145 mg daily, Zofran p.r.n. basis. REVIEW OF SYSTEMS: No headache, no rhinitis. Has some cough, shortness of breath. No chest pain. No nausea, no vomiting, no diarrhea. Has a right foot pain. PHYSICAL EXAMINATION: GENERAL: Lying in the bed. VITAL SIGNS: Temperature is 99, heart rate 76, respiratory rate is 20, blood pressure 116/54, pulse of 97% on nasal cannula. HEENT: Moist mucous membrane. Crowded airway. Mallampati score is four. NECK: Supple. No JVD. LUNGS: Have a few scattered rhonchi, prolonged expiratory phase. HEART: S1 and S2. ABDOMEN: Soft, nontender, no organomegaly. EXTREMITIES: Right foot has a dressing, erythematous, tender to touch. NEUROLOGIC: Awake, alert, follow simple commands. LABORATORY DATA: Shows hemoglobin 8.9, hematocrit 27.6, WBC 9.0, platelet is 230. INR 1.68. PTT 32. Sodium 139, potassium 4.1, chloride 95, bicarbonate 32, BUN 26, creatinine 3.6, glucose 281, calcium 8.5, phosphorus 3.3, magnesium 2.2, AST 92, ALT 50, alk phos is 110. Albumin is 3.2. Microbiology, blood culture, there is no growth. Had echocardiogram done today which shows a right ventricle systolic pressure is 75, LV ejection fraction of 60%-75%, [id number] valvular heart disease. There is questionable vegetation with degenerative changes on the aortic wall. IMPRESSION AND PLAN: Admitted with ischemic right foot being followed by Podiatry Dr. Villanueva, also seen Infectious Diseases. Started on antibiotics. Cardiomyopathy with questionable vegetation of the valve. History of chronic obstructive lung disease, obstructive sleep apnea syndrome, coronary artery disease, history of coronary stent, diabetes, hypertension, renal failure, dialysis dependent, peripheral neuropathy, anemia. Continue antibiotics as per Infectious Diseases. Podiatry followup for possible revascularization. We will place him on CPAP 6 cm with 30% oxygen while sleeping. Avoid nocturnal sedation. Continue inhaled bronchodilator. Thank you and we will follow with you. Jarred Escalera MD
--- NOTE | 2017-10-04 08:45 | PN ---
DATE: 10/03/2017 SUBJECTIVE: The patient is a 52-year-old male. The patient was seen and examined on the bedside on 10/03/2017, looking comfortable. No nausea, vomiting, diarrhea. No hematuria or hematochezia. No swelling of the upper extremities. No headache. No dizziness. Having low-grade fever and weakness. No chest pain. No shortness of breath. Mild coughing. No nausea, vomiting, diarrhea. No headache. No blurring of vision. PHYSICAL EXAMINATION: VITAL SIGNS: Temperature 99, pulse 64, blood pressure 116/54, respiratory rate 18. HEENT: Head normocephalic, atraumatic. Eyes PERRLA. Extraocular muscles intact. Conjunctivae clear. Nose patent. NECK: Supple. No carotid bruit. No JVD or thyromegaly. CHEST: Bilaterally symmetrical. HEART: S1 and S2 positive. LUNGS: Clear to auscultation. ABDOMEN: Soft. Bowel sounds positive. No organomegaly. EXTREMITIES: Upper extremity, no edema, no cyanosis. Lower extremities have discoloration on the extremities and foot has dressing. NEUROLOGICAL: The patient is awake, alert. Moving all 4 extremities. No focal deficits. MEDICATIONS: Hydralazine, Aranesp, Brilinta, Claritin, Ecotrin, Flomax, Glucotrol, insulin, Lopressor, Lovaza, Lyrica, Singulair, Synthroid, multivitamins, TriCor. LABORATORY DATA: White blood cells 9, hemoglobin 8.9, hematocrit 27.6, platelets 230. Sodium 139, potassium 4.1, BUN 26, creatinine 3.6, glucose 281. ASSESSMENT AND PLAN: Mr. Jason Berger, a 52-year-old male with anemia; renal insufficiency, on hemodialysis; abnormal liver function test; diabetic nephropathy; diabetic retinopathy; diabetic neuropathy; history of pancreatitis, cataract; congestive heart failure; right foot cellulitis and gangrenous changes; must rule out underlying peripheral vascular disease; rule out osteomyelitis. The patient is getting vancomycin and meropenem. Podiatry is on the case. Continue antibiotics as per Infectious Disease. Dr. Alfredo Wynn also saw the patient. Seen by copy lathe tender. Gastrointestinal, deep venous thrombosis prophylaxis. Echocardiography was done. Seen by medical billing specialist. We will follow up. Diana Kessler MD [facility] # [id number]
[2017-10-04 09:45] LABS: BASO # 0.02 K/mm3 (0.0-2.0); BASO % 0.2 % (0.0-3.0); EOS # 0.1 (0.0-0.7); GRAN # 7.52 (1.4-6.5); GRAN % 78.3 % (50.0-68.0); HEMOGLOBIN 7.4 g/dL (14.0-18.0); LYMPH # 1.2 (1.2-3.4); LYMPH % 12.9 % (22.0-35.0); MEAN CELL VOLUME 87.9 fl (80.0-105.0); MEAN CORPUSCULAR HEMOGLOBIN 27.9 pg (25.0-35.0); MEAN CORPUSCULAR HGB CONC 31.8 g/dl (31.0-37.0); MEAN PLATELET VOLUME 9.9 fl (7.0-11.0); MONO # 0.7 (0.1-0.6); MONO % 7.6 % (1.0-6.0); RBC 2.65 10^6/uL (3.5-6.1); RED CELL DISTRIBUTION WIDTH 18.3 % (11.5-14.5); WHITE BLOOD COUNT 9.6 10^3/ul (4.5-11.0)
[2017-10-04] MEDS ORDERED: Ergocalciferol 50,000 Intl Units Cap PO SCH ×2 (10:00)
[2017-10-04 10:10] LABS: ALB/GLOB RATIO 0.6 (1.1-1.8); ALBUMIN 2.8 g/dL (3.0-4.8); ALT/SGPT 44 U/L (7-56); AST/SGOT 66 U/L (17-59); BLOOD UREA NITROGEN 27 mg/dL (7-21); CALCIUM 8.1 mg/dL (8.4-10.5); GFR AFRICAN-AMERICAN 20; GFR NON-AFRICAN AMERICAN 17; LDL CHOLESTEROL < 30 mg/dL (0-129)
[2017-10-04 10:18] LABS: HDL CHOLESTEROL 13 mg/dL (29-60)
[2017-10-04] MEDS: Meropenem 500 MG in Sodium Chloride 0.9% 50 ML IVPB SCH ×2 (12:47→22:29)
[2017-10-04] MEDS: Pantoprazole 40 mg EC Tab PO SCH (12:48)
[2017-10-04] MEDS: Omega-3-Acid Ethyl Esters 1 GM Cap PO SCH (12:49)
[2017-10-04] MEDS: Insulin Reg-LOW-Coverage SC SCH ×3 (12:50→22:00)
[2017-10-04] MEDS: FLUTICASO IH SCH (12:51)
[2017-10-04] MEDS: Multivitamin Therapeutic Tab PO SCH (12:51)
[2017-10-04] MEDS: SALMETEROL XINAFOATE IH SCH (12:51)
[2017-10-04] MEDS: DICLOFENAC SODIUM APPL TOP SCH (14:50)
--- NOTE | 2017-10-04 15:01 | PN ---
DATE: 10/04/2017 PULMONARY PROGRESS NOTE REFERRING PHYSICIAN: Diana Kessler MD. SUBJECTIVE: He is lying in the bed, head at 45 degrees. Night was unremarkable. Tolerated CPAP well. Sister and mother are at bedside. Scheduled for OR for revascularization attempt. No cough. No sputum production. No nausea. No vomiting. No diarrhea. OBJECTIVE: GENERAL: In no acute distress. VITAL SIGNS: Temperature is 98, heart rate is 64, respiratory rate is 20, blood pressure 123/86, pulse ox 100% on 4 L nasal cannula. HEENT: Moist mucous membrane. Crowded airway. NECK: Supple. No JVD. LUNGS: Have a fair airflow with rhonchi. HEART: S1 and S2. ABDOMEN: Soft, nontender, nondistended. EXTREMITIES: Ischemic right foot, tender to touch. NEUROLOGICAL: Awake and alert. Follows simple command. MEDICATIONS: He is on hydralazine 25 mg twice a day, also on bimatoprost that is eye drops, Brilinta 90 mg twice a day, Claritin 10 mg daily, getting Voltaren to affected area, vitamin D 50,000 units weekly, DuoNeb every 6 hours, Ecotrin 81 mg daily, Flomax 0.4 mg daily, glipizide 10 mg daily, insulin coverage, Lipitor 40 mg daily, metoprolol tartrate 50 mg daily, Lovaza 2 g twice a day, Lyrica 50 mg at bedtime, meropenem 500 mg every 12 hours, morphine 2 mg every 5 minutes p.r.n., PhosLo, Protonix 40 mg daily, Renagel three times a day, Advair 230/21 one puff twice a day, Singulair 10 mg daily, Synthroid 25 mcg daily, multivitamins daily, Tricor 145 mg daily, Zofran p.r.n. basis. LABORATORY DATA: Shows hemoglobin 7.4, hematocrit 23.3, WBC 9.6, platelet count is 195. Sodium 138, potassium 3.4, chloride 98, bicarbonate is 31, BUN 27, creatinine 3.8, glucose 110, calcium is 8.1, phosphorus 3, magnesium 2.1, AST 66, ALT 44, alk phos is 83, albumin is 2.8, TSH is 7.32. Microbiology: Blood culture has been negative. IMPRESSION AND PLAN: Right ischemic foot cardiomyopathy, history of questionable vegetation of the valve, chronic obstructive lung disease, obstructive sleep apnea syndrome, coronary artery disease, history of coronary stent, diabetes, hypertension, renal failure, dialysis dependent, peripheral neuropathy. Spoke to family at bedside. All the questions answered. Pulmonary point of view, continue bronchodilators. Keep head at 45 degrees. Gastric prophylaxis. Deep venous thrombosis prophylaxis. Podiatry followup. If sedated, need close cardiopulmonary monitoring. Thank you and we will follow with you. Because of diabetes and fear of hypoglycemia, we will place the patient on D10 with 20 mL/hour while awaiting for surgery, n.p.o. Jarred Escalera MD
--- NOTE | 2017-10-04 15:34 | CP.PCM.PN ---
Subjective - Date & Time of Evaluation Date of Evaluation: 10/04/17 Time of Evaluation: 08:40 - Subjective Subjective: For dialysis today, no fevers, not in distress. Objective - Vital Signs/Intake and Output Vital Signs (last 24 hours): Temp Pulse Resp BP Pulse Ox 98.8 F 64 20 123/86 100 10/04/17 06:00 10/04/17 06:00 10/04/17 06:00 10/04/17 06:00 10/04/17 06:00 Intake and Output: 10/04/17 10/04/17 06:59 18:59 Intake Total 530 Balance 530 - Medications Medications: Current Medications Albuterol/Ipratropium (Duoneb 3 Mg/0.5 Mg (3 Ml) Ud) 3 ml IH [id number] [facility] Last Admin: 10/04/17 07:03 Dose: 3 ml Aspirin (Ecotrin) 81 mg PO DAILY [facility] Last Admin: 10/03/17 10:36 Dose: 81 mg Atorvastatin Calcium (Lipitor) 40 mg PO DIN [facility] Last Admin: 10/03/17 17:06 Dose: 40 mg Calcium Acetate (Phoslo) 1,334 mg PO WM [facility] Last Admin: 10/03/17 17:06 Dose: 1,334 mg Ergocalciferol (Drisdol 50,000 Intl Units Cap) 1 cap PO WED [facility] Fenofibrate (Tricor) 145 mg PO DAILY [facility] Last Admin: 10/03/17 10:28 Dose: 145 mg Glipizide (Glucotrol) 10 mg PO DAILY [facility] Last Admin: 10/03/17 10:28 Dose: 10 mg Hydralazine HCl (Apresoline) 25 mg PO BID [facility] Last Admin: 10/03/17 17:59 Dose: Not Given Meropenem 500 mg/ Sodium (Chloride) 50 mls @ 100 mls/hr IVPB Q12 [facility] PRN Reason: Protocol Stop: 10/12/17 14:01 Last Admin: 10/03/17 16:43 Dose: 100 mls/hr Insulin Human NPH (Humulin N) 60 units SC QPM [facility] Last Admin: 10/03/17 18:14 Dose: 60 units Insulin Human Regular (Humulin R Low) 0 units SC ACHS [facility] PRN Reason: Protocol Last Admin: 10/03/17 22:00 Dose: Not Given Levothyroxine Sodium (Synthroid) 25 mcg PO 0600 [facility] Last Admin: 10/04/17 05:59 Dose: 25 mcg Loratadine (Claritin) 10 mg PO HS [facility] Last Admin: 10/03/17 22:00 Dose: 10 mg Metoprolol Tartrate (Lopressor) 50 mg PO QPM [facility] Montelukast Sodium (Singulair) 10 mg PO HS [facility] Last Admin: 10/03/17 22:01 Dose: 10 mg Morphine Sulfate (Morphine) 2 mg IVP Q6H PRN PRN Reason: Pain, severe (8-10) Last Admin: 10/04/17 05:59 Dose: 2 mg Multivitamins (Thera Tab) 1 tab PO DAILY [facility] Last Admin: 10/03/17 10:37 Dose: 1 tab Non-Formulary Medication (Bimatoprost [Lumigan]) 1 drp OU [facility] Last Admin: 10/03/17 22:00 Dose: Not Given Non-Formulary Medication (Diclofenac Sodium [Voltaren]) 1 appl TOP DAILY [facility] Last Admin: 10/03/17 10:39 Dose: Not Given Non-Formulary Medication (Salmeterol Xinafoate/Fluticaso [Advair Hfa 230-21]) 1 puff IH BID [facility] Last Admin: 10/03/17 10:38 Dose: Not Given Ukost-2-Emet Ethyl Esters (Lovaza) 2 gm PO BID [facility] Last Admin: 10/03/17 18:09 Dose: 2 gm Ondansetron HCl (Zofran Inj) 4 mg IVP Q6H PRN PRN Reason: Nausea/Vomiting Pantoprazole Sodium (Protonix Ec Tab) 40 mg PO DAILY [facility] Last Admin: 10/03/17 10:28 Dose: 40 mg Pregabalin (Lyrica) 50 mg PO HS [facility] Last Admin: 10/03/17 22:01 Dose: 50 mg Sevelamer HCl (Renagel) 1,600 mg PO TID [facility] Last Admin: 10/03/17 17:07 Dose: 1,600 mg Sodium Chloride ([place] Nasal [place]) 1 ml NS Q2H PRN PRN Reason: Nasal congestion Tamsulosin HCl (Flomax) 0.4 mg PO [facility] Last Admin: 10/03/17 22:00 Dose: 0.4 mg Ticagrelor (Brilinta) 90 mg PO BID [facility] Last Admin: 10/03/17 18:10 Dose: 90 mg - Labs Labs: 10/04/17 09:30 10/04/17 09:30 PT 19.3 SECONDS (9.4-12.5) H 10/02/17 21:20 INR 1.68 (0.93-1.08) H 10/02/17 21:20 APTT 32.0 Seconds (25.1-36.5) 10/02/17 21:20 - Constitutional Appears: Chronically Ill - Head Exam Head Exam: NORMAL INSPECTION - Respiratory Exam Respiratory Exam: Decreased Breath Sounds - Cardiovascular Exam Cardiovascular Exam: +S1, +S2 - GI/Abdominal Exam GI & Abdominal Exam: Soft. absent: Tenderness - Extremities Exam Additional comments: right foot with dressings in place Assessment and Plan - Assessment and Plan (Free Text) Plan: Assessment Right foot cellulitis with wet gangrene, with probable osteomyelitis history of bilateral healthcare-associated pneumonia history of sepsis with gastroenteritis and C. diff. associated diarrhea ESRD on HD DM obesity CAD S/P PCI retinopathy history of pancreatitis Plan gave a dose of IV Vancomycin and continue Merrem day 2; patient is scheduled for transmetatarsal amputation will monitor clinically
[2017-10-04] MEDS ORDERED: Lidocaine 2 GM/50 ML Vial (4%) IV ONE (16:22)
[2017-10-04] MEDS ORDERED: Dextrose 50% SYRINGE Inj (50 ml) IVP ONE (16:38)
[2017-10-04] MEDS ORDERED: Gentamicin 80 mg/2mL Inj. ONE (16:58)
[2017-10-04] MEDS ORDERED: Midazolam 2 MG/2 ML VIAL ONE (17:05)
--- NOTE | 2017-10-04 18:28 | CP.PCM.PN ---
Subjective - Date & Time of Evaluation Date of Evaluation: 10/04/17 Time of Evaluation: 04:00 - Subjective Subjective: Podiatry Preoperative Progress Note- Dr. Villanueva 52 year old male with PMH of COPD, CAD with 4 stents, ESRD on HD MWF, IDDM2 and HTN seen and evaluated at bedside for discolored digits on the right foot with wet gangrene and cellulitis secondary to PAD and DM. Patient had dialysis in the AM. Patient has exhausted all conservative treatment and now opts for surgical intervention. Patient to go to the OR today with Dr. Villanueva for a right foot transmetatarsal amputation with debridement of bone and all nonviable soft tissue with possible wound vac application. Patient reports nothing to eat or drink since midnight yesterday. Patient reports same pain to the right foot. Denies of any nausea, fever, shortness of breath, chest pains or chills. Objective - Vital Signs/Intake and Output Vital Signs (last 24 hours): Temp Pulse Resp BP Pulse Ox 98.9 F 79 18 123/42 L 100 10/04/17 16:20 10/04/17 16:20 10/04/17 16:20 10/04/17 16:20 10/04/17 16:20 Intake and Output: 10/04/17 10/04/17 06:59 18:59 Intake Total 530 Balance 530 - Medications Medications: Current Medications Albuterol/Ipratropium (Duoneb 3 Mg/0.5 Mg (3 Ml) Ud) 3 ml IH [id number] [facility] Last Admin: 10/04/17 13:40 Dose: 3 ml Aspirin (Ecotrin) 81 mg PO DAILY [facility] Last Admin: 10/04/17 14:52 Dose: Not Given Atorvastatin Calcium (Lipitor) 40 mg PO DIN [facility] Last Admin: 10/03/17 17:06 Dose: 40 mg Calcium Acetate (Phoslo) 1,334 mg PO WM [facility] Last Admin: 10/04/17 12:50 Dose: Not Given Ergocalciferol (Drisdol 50,000 Intl Units Cap) 1 cap PO WED [facility] Last Admin: 10/04/17 12:48 Dose: 1 cap Fenofibrate (Tricor) 145 mg PO DAILY [facility] Last Admin: 10/04/17 12:48 Dose: 145 mg Glipizide (Glucotrol) 10 mg PO DAILY [facility] Last Admin: 10/04/17 12:50 Dose: Not Given Hydralazine HCl (Apresoline) 25 mg PO BID [facility] Last Admin: 10/04/17 14:50 Dose: Not Given Meropenem 500 mg/ Sodium (Chloride) 50 mls @ 100 mls/hr IVPB Q12 [facility] PRN Reason: Protocol Stop: 10/12/17 14:01 Last Admin: 10/04/17 12:47 Dose: 100 mls/hr Dextrose (Dextrose 10% In Water) 500 mls @ 20 mls/hr IV .Q24H [facility] Last Admin: 10/04/17 13:22 Dose: 20 mls/hr Insulin Human NPH (Humulin N) 60 units SC QPM [facility] Last Admin: 10/03/17 18:14 Dose: 60 units Insulin Human Regular (Humulin R Low) 0 units SC ACHS [facility] PRN Reason: Protocol Last Admin: 10/04/17 12:50 Dose: Not Given Levothyroxine Sodium (Synthroid) 25 mcg PO 0600 [facility] Last Admin: 10/04/17 05:59 Dose: 25 mcg Loratadine (Claritin) 10 mg PO HS [facility] Last Admin: 10/03/17 22:00 Dose: 10 mg Metoprolol Tartrate (Lopressor) 50 mg PO QPM [facility] Montelukast Sodium (Singulair) 10 mg PO HS [facility] Last Admin: 10/03/17 22:01 Dose: 10 mg Morphine Sulfate (Morphine) 2 mg IVP Q5H PRN PRN Reason: Pain, severe (8-10) Last Admin: 10/04/17 15:40 Dose: 2 mg Multivitamins (Thera Tab) 1 tab PO DAILY [facility] Last Admin: 10/04/17 12:51 Dose: 1 tab Non-Formulary Medication (Bimatoprost [Lumigan]) 1 drp OU HS [facility] Last Admin: 10/03/17 22:00 Dose: Not Given Non-Formulary Medication (Diclofenac Sodium [Voltaren]) 1 appl TOP DAILY [facility] Last Admin: 10/04/17 14:50 Dose: Not Given Non-Formulary Medication (Salmeterol Xinafoate/Fluticaso [Advair Hfa 230-21]) 1 puff IH BID [facility] Last Admin: 10/04/17 12:51 Dose: Not Given Iyndz-9-[id number] Ethyl Esters (Lovaza) 2 gm PO BID [facility] Last Admin: 10/04/17 12:49 Dose: 2 gm Ondansetron HCl (Zofran Inj) 4 mg IVP Q6H PRN PRN Reason: Nausea/Vomiting Pantoprazole Sodium (Protonix Ec Tab) 40 mg PO DAILY [facility] Last Admin: 10/04/17 12:48 Dose: 40 mg Pregabalin (Lyrica) 50 mg PO [facility] Last Admin: 10/03/17 22:01 Dose: 50 mg Sevelamer HCl (Renagel) 1,600 mg PO TID [facility] Last Admin: 10/04/17 14:52 Dose: Not Given Sodium Chloride ([place] Nasal [place]) 1 ml NS Q2H PRN PRN Reason: Nasal congestion Tamsulosin HCl (Flomax) 0.4 mg PO [facility] Last Admin: 10/03/17 22:00 Dose: 0.4 mg Ticagrelor (Brilinta) 90 mg PO BID [facility] Last Admin: 10/03/17 18:10 Dose: 90 mg - Labs Labs: 10/04/17 09:30 10/04/17 09:30 PT 19.3 SECONDS (9.4-12.5) H 10/02/17 21:20 INR 1.68 (0.93-1.08) H 10/02/17 21:20 APTT 32.0 Seconds (25.1-36.5) 10/02/17 21:20 - Constitutional Appears: Well, Non-toxic, No Acute Distress - Extremities Exam Extremities Exam: absent: Calf Tenderness Additional comments: Dressing c/d/i without strikethrough noted to the right lower extremity - Neurological Exam Neurological Exam: Alert, Awake, Oriented x3 - Psychiatric Exam Psychiatric exam: Normal Affect, Normal Mood Assessment and Plan - Assessment and Plan (Free Text) Assessment: 52 y.o male seen at bedside for preoperative evaluation for right foot transmetatarsal amputation with debridement of bone and all nonviable soft tissue with possible wound vac application in OR today by Dr. Villanueva. Plan: Pt was seen and examined at bedside Pt NPO status was confirmed All Pre-op testing and clearance was in the chart Pt has exhausted all conservative treatment at this time and is opting for surgical intervention Pt was explained procedure and post-operative course All pt's questions were answered to satisfaction No guarantees were made Pt understands all risks, benefits and complications of procedure Will continue to follow patient while in house
[2017-10-04] MEDS ORDERED: Sodium Chloride 0.9% 1,000 ML IV SCH (18:30)
--- NOTE | 2017-10-04 18:40 | PCM.SURG1 ---
Surgeon's Initial Post Op Note - Surgeon's Notes Surgeon: Dr. Deborah Villanueva, DPM [employer] Supervisor: Dr. Ismael Jeffers, DPM PGY2, SUZAN CollinsM PGY1 Type of Anesthesia: MAC, Local Anesthesia Administered By: Dr. Avelino FENG Pre-Operative Diagnosis: right foot wet gangrene with ulceration and cellulitis secondary to DM and PAD Operative Findings: see dictation. preoperpative injectables: 20 cc of 2% lidocaine plain; materials: 3-0 vicryl, 3-0 nylon, 1" idoform packing, fitz Post-Operative Diagnosis: same Operation Performed: right foot transmetatarsal amputation including debridement of bone and all nonviable soft tissue Specimen/Specimens Removed: right foot necrotic soft tissue Estimated Blood Loss: EBL {In ML}: 100 Blood Products Given: N/A Drains Used: No Drains Post-Op Condition: Good Date of Surgery/Procedure: 10/04/17 Time of Surgery/Procedure: 04:30
--- NOTE | 2017-10-04 20:04 | PN ---
DATE: 10/04/2017 SUBJECTIVE: The patient is seen sitting in bed. He is awake, he is alert. Mother is at bedside. He is just coming back from dialysis. He feels well. He denies any shortness of breath. PHYSICAL EXAMINATION: GENERAL: Middle-aged male, sitting in bed. VITAL SIGNS: Blood pressure 123/42, heart rate 79, respiratory rate 18 to 20, and temperature 98.9. HEENT: Normocephalic, atraumatic, positive pallor. NECK: Supple, no JVD. LUNGS: Bilateral equal air entry, bilateral equal expansion, no rales. CARDIAC: S1 and S2, regular rate and rhythm, no murmur, no rub. ABDOMEN: Obese, distended, soft, nontender, bowel sounds present. EXTREMITIES: Dressing of the right foot. LABORATORY DATA: WBC 9.6, hemoglobin 7.4, hematocrit 23, and platelets 195. Sodium 134, potassium 3.4, chloride 98, CO2 of 31. BUN 27, creatinine to 0.8. Glucose 110. Calcium 8.1. A1c 7.8. Phosphorus 3, magnesium 2.1. Blood cultures, no growth. CURRENT MEDICATIONS: Apresoline 25 b.i.d., Brilinta, Claritin, D5W at 20 mL on hold, Glucotrol, insulin, Lipitor, Lopressor 50 every evening, Lyrica, meropenem 500 every 12 hours, morphine, PhosLo, Protonix, Renagel, Synthroid, and Zofran. ASSESSMENT: 1. Cellulitis of the right foot, gangrene of first and third toe. 2. Peripheral vascular disease. 3. Severe anemia. 4. Hypertension. 5. Coronary artery disease, recent left anterior descending stent. 6. Hyperphosphatemia. PLAN: 1. Stable dialysis this morning. 2. The patient is scheduled for aggressive TMA of the right foot. 3. We will monitor closely postoperatively. 4. May require blood transfusion. 5. Continue antibiotics. 6. Continue phosphate binders. Eva Malcolm MD
[2017-10-04 20:28] LABS: BASO # 0.02 K/mm3 (0.0-2.0); BASO % 0.2 % (0.0-3.0); EOS # 0.1 (0.0-0.7); EOS % 0.6 % (1.5-5.0); GRAN # 6.4 (1.4-6.5); GRAN % 72.7 % (50.0-68.0); LYMPH # 1.6 (1.2-3.4); LYMPH % 17.6 % (22.0-35.0); MEAN CELL VOLUME 90.2 fl (80.0-105.0); MEAN CORPUSCULAR HEMOGLOBIN 28.1 pg (25.0-35.0); MEAN CORPUSCULAR HGB CONC 31.2 g/dl (31.0-37.0); MONO # 0.8 (0.1-0.6); MONO % 8.9 % (1.0-6.0); RBC 2.24 10^6/uL (3.5-6.1); RED CELL DISTRIBUTION WIDTH 18.5 % (11.5-14.5); WHITE BLOOD COUNT 8.8 10^3/ul (4.5-11.0)
[2017-10-04 20:32] LABS: HEMOGLOBIN 6.3 g/dL (14.0-18.0)
[2017-10-04] MEDS: BIMATOPROST OU SCH (22:00)
[2017-10-05] MEDS: Albuterol-Ipratrop 3 mg / 0.5 (3 ml) UD IH SCH ×3 (02:21→19:20)
[2017-10-05] MEDS: Levothyroxine 25 MCG TAB PO SCH (06:44)
--- NOTE | 2017-10-05 06:58 | CP.PCM.PN ---
Subjective - Date & Time of Evaluation Date of Evaluation: 10/05/17 Time of Evaluation: 06:45 - Subjective Subjective: complaints of tolerable pain on right foot, awake,alert, no distress, blood transfusion on going Reason for consultation and follow up:Cardiac evaluation for questionable history of vegetation on pacemaker when he was at [facility]. Admitted for right toe ulcer/gangrene. History of peripheral arterial disease, coronary artery disease with multiple stents, sick sinus syndrome with PPM, history of fall with subdural hematoma and was on Brilinta at that time.(held off Brilinta for 2 weeks then resumed due to recent stent placement). Post right foot transmetatarsal amputation. Seen and examined by me and Dr. Erickson Objective - Vital Signs/Intake and Output Vital Signs (last 24 hours): Temp Pulse Resp BP Pulse Ox 98.3 F 62 16 105/40 L 94 L 10/05/17 06:25 10/05/17 06:25 10/05/17 06:25 10/05/17 06:25 10/04/17 22:00 Intake and Output: 10/04/17 10/05/17 18:59 06:59 Intake Total 260 Balance 260 - Medications Medications: Current Medications Albuterol/Ipratropium (Duoneb 3 Mg/0.5 Mg (3 Ml) Ud) 3 ml IH [id number] [facility] Last Admin: 10/05/17 02:21 Dose: Not Given Aspirin (Ecotrin) 81 mg PO DAILY [facility] Last Admin: 10/04/17 14:52 Dose: Not Given Atorvastatin Calcium (Lipitor) 40 mg PO DIN [facility] Last Admin: 10/04/17 22:29 Dose: 40 mg Calcium Acetate (Phoslo) 1,334 mg PO WM [facility] Last Admin: 10/04/17 12:50 Dose: Not Given Ergocalciferol (Drisdol 50,000 Intl Units Cap) 1 cap PO WED [facility] Last Admin: 10/04/17 12:48 Dose: 1 cap Fenofibrate (Tricor) 145 mg PO DAILY [facility] Last Admin: 10/04/17 12:48 Dose: 145 mg Fentanyl (Fentanyl) 25 mcg IV Q5M PRN PRN Reason: Pain, moderate (4-7) Glipizide (Glucotrol) 10 mg PO DAILY [facility] Last Admin: 10/04/17 12:50 Dose: Not Given Hydralazine HCl (Apresoline) 25 mg PO BID [facility] Last Admin: 10/04/17 14:50 Dose: Not Given Meropenem 500 mg/ Sodium (Chloride) 50 mls @ 100 mls/hr IVPB Q12 [facility] PRN Reason: Protocol Stop: 10/12/17 14:01 Last Admin: 10/04/17 22:29 Dose: 100 mls/hr Dextrose (Dextrose 10% In Water) 500 mls @ 20 mls/hr IV .Q24H [facility] Last Admin: 10/04/17 13:22 Dose: 20 mls/hr Insulin Human NPH (Humulin N) 60 units SC QPM [facility] Last Admin: 10/03/17 18:14 Dose: 60 units Insulin Human Regular (Humulin R Low) 0 units SC ACHS [facility] PRN Reason: Protocol Last Admin: 10/04/17 18:56 Dose: Not Given Levothyroxine Sodium (Synthroid) 25 mcg PO 0600 [facility] Last Admin: 10/04/17 05:59 Dose: 25 mcg Loratadine (Claritin) 10 mg PO [facility] Last Admin: 10/04/17 22:12 Dose: 10 mg Metoprolol Tartrate (Lopressor) 50 mg PO QPM [facility] Montelukast Sodium (Singulair) 10 mg PO [facility] Last Admin: 10/04/17 22:13 Dose: 10 mg Morphine Sulfate (Morphine) 2 mg IVP Q5H PRN PRN Reason: Pain, severe (8-10) Last Admin: 10/04/17 15:40 Dose: 2 mg Multivitamins (Thera Tab) 1 tab PO DAILY [facility] Last Admin: 10/04/17 12:51 Dose: 1 tab Non-Formulary Medication (Bimatoprost [Lumigan]) 1 drp OU HS [facility] Last Admin: 10/03/17 22:00 Dose: Not Given Non-Formulary Medication (Diclofenac Sodium [Voltaren]) 1 appl TOP DAILY [facility] Last Admin: 10/04/17 14:50 Dose: Not Given Non-Formulary Medication (Salmeterol Xinafoate/Fluticaso [Advair Hfa 230-21]) 1 puff IH BID [facility] Last Admin: 10/04/17 12:51 Dose: Not Given Qxapu-1-[id number] Ethyl Esters (Lovaza) 2 gm PO BID [facility] Last Admin: 10/04/17 12:49 Dose: 2 gm Ondansetron HCl (Zofran Inj) 4 mg IVP Q6H PRN PRN Reason: Nausea/Vomiting Pantoprazole Sodium (Protonix Ec Tab) 40 mg PO DAILY [facility] Last Admin: 10/04/17 12:48 Dose: 40 mg Pregabalin (Lyrica) 50 mg PO HS [facility] Last Admin: 10/04/17 22:13 Dose: 50 mg Sevelamer HCl (Renagel) 1,600 mg PO TID [facility] Last Admin: 10/04/17 14:52 Dose: Not Given Sodium Chloride ([place] Nasal [place]) 1 ml NS Q2H PRN PRN Reason: Nasal congestion Tamsulosin HCl (Flomax) 0.4 mg PO [facility] Last Admin: 10/04/17 22:13 Dose: 0.4 mg Ticagrelor (Brilinta) 90 mg PO BID [facility] Last Admin: 10/03/17 18:10 Dose: 90 mg - Labs Labs: 10/04/17 20:15 10/04/17 09:30 PT 19.3 SECONDS (9.4-12.5) H 10/02/17 21:20 INR 1.68 (0.93-1.08) H 10/02/17 21:20 APTT 32.0 Seconds (25.1-36.5) 10/02/17 21:20 - Constitutional Appears: No Acute Distress - Eye Exam Eye Exam: Normal appearance - ENT Exam ENT Exam: Mucous Membranes Moist - Respiratory Exam Respiratory Exam: Clear to Ausculation Bilateral, NORMAL BREATHING PATTERN - Cardiovascular Exam Cardiovascular Exam: +S1, +S2 Additional comments: PPM - GI/Abdominal Exam GI & Abdominal Exam: Soft, Normal Bowel Sounds - Exam Additional comments: left arm AV shunt positive bruit/thrill hemodialysis 3 x a week - Extremities Exam Additional comments: left arm AV shunt right foot wrapped with kirlex, post right foot transmetatarsal amputation - Neurological Exam Neurological Exam: Alert, Awake, Oriented x3 - Psychiatric Exam Psychiatric exam: Normal Affect - Skin Skin Exam: Dry, Warm Assessment and Plan - Assessment and Plan (Free Text) Assessment: A 52 year old male who was admitted due to right toe ulcer/gangrene.Consult was called for evaluation for questionable history of vegetation on pacemaker when he was at [facility]. History of peripheral arterial disease, coronary artery disease with multiple stents, sick sinus syndrome with PPM, history of fall with subdural hematoma and was on Brilinta at that time.(held off Brilinta for 2 weeks then resumed due to recent stent placement) ESRD on hemodialysis, diabetes, diabetic neuropathy, diabetic nephropathy, retinopathy, COPD, history of pancreatitis, hypertriglyceridemia, CVA,spinal stenosis. Recently admitted at [facility] and recommended amputation of right leg but family refused and discharged. ECHO done 10/03/17-LVEF 60-65%, Moderate to severe AR, moderate aortic stenosis, moderate MR, moderate to severe TR Echogenic mobile structure attached to aortic valve leaflet, with same consistency of valve, can not rule out vegetation versus degenerative changes, will correlate clinically with blood cultures. Post right foot transmetatarsal amputation 10/04/17. Transfused 2 units PRBC for low hemoglobin. Plan: Status post right foot transmetatarsal amputation yesterday Blood transfusion on going 2nd unit PRBC Hemoglobin/hematocrit 6.3/20.2 Cardiac status stable Heart rate and blood pressure controlled Had hemodialysis yesterday Awaiting blood culture results Continue current treatment Continue current medications Fall precaution Will follow up Plan and treatment discussed with Dr. Erickson
--- NOTE | 2017-10-05 07:24 | RAD ---
Date of service: 10/04/2017 PROCEDURE: Right foot HISTORY: s/p right foot surgery COMPARISON: 10/03/2017 TECHNIQUE: Three views FINDINGS: There has been amputation at the level of the proximal metatarsals 1 through 5. Surgical clips are seen. There is air in the soft tissues. IMPRESSION: As above
--- NOTE | 2017-10-05 08:10 | PN ---
DATE: 10/04/2017 SUBJECTIVE: Patient was seen and examined on the bedside on 10/04/2017. He just came back after surgical procedure of the right foot metatarsal amputation with debridement of bone and all nonviable soft tissue removing. Looks like comfortable. No nausea, vomiting or diarrhea. No hematuria or hematochezia. No headache. No dizziness. No chest pain. No palpitation. PHYSICAL EXAMINATION: VITAL SIGNS: Temperature 98.8, pulse 79, respiratory rate 18, blood pressure 122/42, pulse oximetry 100. HEENT: Head normocephalic, atraumatic. Eyes, PERRLA. Extraocular muscles intact. Conjunctivae clear. Nose patent. Mucous membranes moist. NECK: Supple. No carotid bruit. No JVD or thyromegaly. CHEST: Bilaterally symmetrical. HEART: S1 and S2 positive. LUNGS: Clear to auscultation. ABDOMEN: Soft. Bowel sounds present. No organomegaly. EXTREMITIES: No edema. No cyanosis in the right food . MEDICATIONS: Albuterol, aspirin, Lipitor, PhosLo, vitamin D, TriCor, Glucotrol, hydralazine, meropenem, insulin, levothyroxine, montelukast, multivitamins, Zofran, and Lovaza. LABORATORY DATA: White blood cells 9.6, hemoglobin 7.4, hematocrit 23.3, platelets 195. Sodium 138, potassium 3.4, BUN 27, creatinine 3.8, glucose 110. ASSESSMENT AND PLAN: Mr. Jason Berger is a 52-year-old male with severe anemia, status post blood transfusion of 2 units; hypokalemia, renal insufficiency, getting dialysis, diabetic nephropathy, diabetic retinopathy, diabetic neuropathy; had right foot transmetatarsal amputation with debridement of the bone application in the OR by Dr. Villanueva, history of hypothyroidism. Gastrointestinal and deep vein thrombosis prophylaxis. Repeat labs. Patient has a history of obesity, hypothyroidism, just came back from surgery, very happy, infected portion of body is removed. We will follow up. Diana Kessler MD MTDRicardo
[2017-10-05] MEDS: Insulin Reg-LOW-Coverage SC SCH ×4 (08:27→22:22)
[2017-10-05] MEDS: Morphine 2 mg/ml ISec IVP PRN ×2 (08:57→20:29)
--- NOTE | 2017-10-05 09:53 | CP.PCM.PN ---
Subjective - Date & Time of Evaluation Date of Evaluation: 10/05/17 Time of Evaluation: 09:00 - Subjective Subjective: Podiatry Progress Note- Dr. Villanueva/Dr. Quevedo 52 y/o male with PMH of COPD, CAD stents, ESRD on HD MWF, IDDM2 and HTN 1 day s/ p right transmetatarsal amputation with debridement of bone and all nonviable soft tissue secondary to right foot wet gangrene secondary to DM and PAD. Patient is seen resting comfortably in bed, in NAD, and AA0x3. Patient reports his pain is "30%" last night. Reports pain is improved today. Slept well. Dressing is clean, dry, and intact without strikethrough. Patient reports he is feeling well. Denies of any dizziness. Denies of nausea, fever, shortness of breath, chest pain or chills. Objective - Vital Signs/Intake and Output Vital Signs (last 24 hours): Temp Pulse Resp BP Pulse Ox 98.3 F 62 16 105/40 L 98 10/05/17 06:25 10/05/17 06:25 10/05/17 06:25 10/05/17 06:25 10/05/17 06:00 Intake and Output: 10/05/17 10/05/17 06:59 18:59 Intake Total 310 312 Balance 310 312 - Medications Medications: Current Medications Albuterol/Ipratropium (Duoneb 3 Mg/0.5 Mg (3 Ml) Ud) 3 ml IH [id number] [facility] Last Admin: 10/05/17 07:28 Dose: 3 ml Aspirin (Ecotrin) 81 mg PO DAILY [facility] Last Admin: 10/04/17 14:52 Dose: Not Given Atorvastatin Calcium (Lipitor) 40 mg PO DIN [facility] Last Admin: 10/04/17 22:29 Dose: 40 mg Calcium Acetate (Phoslo) 1,334 mg PO WM [facility] Last Admin: 10/04/17 12:50 Dose: Not Given Ergocalciferol (Drisdol 50,000 Intl Units Cap) 1 cap PO WED [facility] Last Admin: 10/04/17 12:48 Dose: 1 cap Fenofibrate (Tricor) 145 mg PO DAILY [facility] Last Admin: 10/04/17 12:48 Dose: 145 mg Fentanyl (Fentanyl) 25 mcg IV Q5M PRN PRN Reason: Pain, moderate (4-7) Glipizide (Glucotrol) 10 mg PO DAILY [facility] Last Admin: 10/04/17 12:50 Dose: Not Given Hydralazine HCl (Apresoline) 25 mg PO BID [facility] Last Admin: 10/04/17 14:50 Dose: Not Given Meropenem 500 mg/ Sodium (Chloride) 50 mls @ 100 mls/hr IVPB Q12 [facility] PRN Reason: Protocol Stop: 10/12/17 14:01 Last Admin: 10/04/17 22:29 Dose: 100 mls/hr Dextrose (Dextrose 10% In Water) 500 mls @ 20 mls/hr IV .Q24H [facility] Last Admin: 10/04/17 13:22 Dose: 20 mls/hr Insulin Human NPH (Humulin N) 60 units SC QPM [facility] Last Admin: 10/03/17 18:14 Dose: 60 units Insulin Human Regular (Humulin R Low) 0 units SC ACHS [facility] PRN Reason: Protocol Last Admin: 10/05/17 08:27 Dose: 7 units Levothyroxine Sodium (Synthroid) 25 mcg PO 0600 [facility] Last Admin: 10/05/17 06:44 Dose: 25 mcg Loratadine (Claritin) 10 mg PO HS [facility] Last Admin: 10/04/17 22:12 Dose: 10 mg Metoprolol Tartrate (Lopressor) 50 mg PO QPM [facility] Montelukast Sodium (Singulair) 10 mg PO HS [facility] Last Admin: 10/04/17 22:13 Dose: 10 mg Morphine Sulfate (Morphine) 2 mg IVP Q5H PRN PRN Reason: Pain, severe (8-10) Last Admin: 10/05/17 08:57 Dose: 2 mg Multivitamins (Thera Tab) 1 tab PO DAILY [facility] Last Admin: 10/04/17 12:51 Dose: 1 tab Non-Formulary Medication (Bimatoprost [Lumigan]) 1 drp OU HS [facility] Last Admin: 10/04/17 22:00 Dose: Not Given Non-Formulary Medication (Diclofenac Sodium [Voltaren]) 1 appl TOP DAILY [facility] Last Admin: 10/04/17 14:50 Dose: Not Given Non-Formulary Medication (Salmeterol Xinafoate/Fluticaso [Advair Hfa 230-21]) 1 puff IH BID [facility] Last Admin: 10/04/17 12:51 Dose: Not Given Yxzqt-5-Dagy Ethyl Esters (Lovaza) 2 gm PO BID [facility] Last Admin: 10/04/17 12:49 Dose: 2 gm Ondansetron HCl (Zofran Inj) 4 mg IVP Q6H PRN PRN Reason: Nausea/Vomiting Pantoprazole Sodium (Protonix Ec Tab) 40 mg PO DAILY [facility] Last Admin: 10/04/17 12:48 Dose: 40 mg Pregabalin (Lyrica) 50 mg PO HS [facility] Last Admin: 10/04/17 22:13 Dose: 50 mg Sevelamer HCl (Renagel) 1,600 mg PO TID [facility] Last Admin: 10/04/17 14:52 Dose: Not Given Sodium Chloride ([place] Nasal [place]) 1 ml NS Q2H PRN PRN Reason: Nasal congestion Tamsulosin HCl (Flomax) 0.4 mg PO [facility] Last Admin: 10/04/17 22:13 Dose: 0.4 mg Ticagrelor (Brilinta) 90 mg PO BID [facility] Last Admin: 10/03/17 18:10 Dose: 90 mg - Labs Labs: 10/04/17 20:15 10/04/17 09:30 PT 19.3 SECONDS (9.4-12.5) H 10/02/17 21:20 INR 1.68 (0.93-1.08) H 10/02/17 21:20 APTT 32.0 Seconds (25.1-36.5) 10/02/17 21:20 - Constitutional Appears: Well, Non-toxic, No Acute Distress - Extremities Exam Extremities Exam: absent: Calf Tenderness Additional comments: Right Lower extremity focused exam: Vasc: TMA flap with capillary filling time WNL; Temp gradient: warm to cool from proximal to distal, mild non-pitting edema noted on the right TMA Derm: distal TMA site flap is coapted and reapproximated with sutures and fitz. No unraveling of sutures or backing out of fitz noted. No dehiscence appreciated to the flap. No purulence drainage. Serosangious drainage noted to the right surgical site opening plantarly. There is an open large ulceration measuring approximately 10 cm x 7 cm x 2 cm on the plantar medial aspect of right foot, wound base mixture of granular and fibrotic tissue. No tracking or tunneling. No erythema or streaking. No malodor appreciated. No fluctance or abscess noted Neuro: Epicritic and protective sensation grossly absent Ortho: mild pain and tenderness with palpation to skin surrounding surgical site. Ankle AROM and passive ROM WNL - Neurological Exam Neurological Exam: Alert, Awake, Oriented x3 - Psychiatric Exam Psychiatric exam: Normal Affect, Normal Mood Assessment and Plan - Assessment and Plan (Free Text) Assessment: 52 y/o male with PMH of COPD, CAD stents, ESRD on HD MWF, IDDM2 and HTN 1 day s/ p right transmetatarsal amputation with debridement of bone and all nonviable soft tissue secondary to right foot wet gangrene secondary to DM and PAD. Plan: Patient seen and evaluated with attending Dr. Villanueva at bedside All questions/concerns addressed Labs, vitals, and charts reviewed. WBC=8.8, H/H 6.3/20.2, afebrile -received two units PRBC in the AM Right foot X-rays s/p right foot surgery. Impression: There has been amputation at the level of the proximal metatarsals 1 through 5. Surgical clips are seen. There is air in the soft tissues. - Packing of idoform to plantar large plantar ulceration may micmick air in soft tissues; no fluctuance or abscess appreciated to right foot Dressing changed to right foot; Iodoform packing removed. Cleansed surgical site with copious amounts of saline solution. Dressed TMA flap with adaptic and packed ulceration with 1" idoform. Dressed right foot with dsd, abd, kerlix and MALLORY Will continue to monitor for serosangious strikethrough Surgical site with mild bleeding still noted. Will hold off Wound VAC. Dressing to be clean, dry and intact. Do not get wet. Brillinta held. Keep dressing on until Saturday 10/07 Do not WB to the right lower extremity SCDs Pleaes dispense Multipodus boots. Patient to wear at all times while in bed. Physical therapy- evaluate and treat. Patient to be NWB to right lower extremity with assisting device. Patient reports having scooter in which patient will bring in from home. Intraop wound culture right foot- pending Intraop specimen right foot- pending c/w iv abx per ID Abx treatment for soft tissue infection per ID; intraop bony quality WNL Recommends TCU to work with physical therapy and abx treatment Will continue to closely follow while in house Upon discharge will follow up with Dr. Villanueva in wound care clinic
[2017-10-05] MEDS: Meropenem 500 MG in Sodium Chloride 0.9% 50 ML IVPB SCH ×2 (10:09→22:21)
[2017-10-05] MEDS: Omega-3-Acid Ethyl Esters 1 GM Cap PO SCH ×2 (10:12→18:32)
[2017-10-05] MEDS: Pantoprazole 40 mg EC Tab PO SCH (10:13)
[2017-10-05] MEDS: Multivitamin Therapeutic Tab PO SCH (10:13)
[2017-10-05] MEDS: DICLOFENAC SODIUM APPL TOP SCH (10:16)
[2017-10-05] MEDS: SALMETEROL XINAFOATE IH SCH ×2 (11:00→18:34)
[2017-10-05] MEDS: FLUTICASO IH SCH ×2 (11:00→18:34)
[2017-10-05 12:13] LABS: HEMOGLOBIN 7.7 g/dL (14.0-18.0); RBC 2.73 10^6/uL (3.5-6.1); WHITE BLOOD COUNT 10.6 10^3/ul (4.5-11.0)
[2017-10-05 12:14] LABS: MEAN CELL VOLUME 87.9 fl (80.0-105.0); MEAN CORPUSCULAR HEMOGLOBIN 28.2 pg (25.0-35.0); MEAN CORPUSCULAR HGB CONC 32.1 g/dl (31.0-37.0); RED CELL DISTRIBUTION WIDTH 18.7 % (11.5-14.5)
[2017-10-05 12:15] LABS: MEAN PLATELET VOLUME 10.5 fl (7.0-11.0)
[2017-10-05 12:38] LABS: CALCIUM 8.2 mg/dL (8.4-10.5)
[2017-10-05 12:39] LABS: ALB/GLOB RATIO 0.6 (1.1-1.8); ALBUMIN 2.7 g/dL (3.0-4.8)
[2017-10-05 12:53] LABS: IRON 105 ug/dL (45-180)
[2017-10-05 12:54] LABS: % IRON SATURATION 54 % (20-55); TOTAL IRON BINDING CAPACITY 195 ug/dL (261-462)
[2017-10-05] MEDS: Oxycodone/Acetaminophen 5/325 mg Tab PO PRN (13:07)
--- NOTE | 2017-10-05 15:46 | CP.PCM.PN ---
Subjective - Date & Time of Evaluation Date of Evaluation: 10/05/17 Time of Evaluation: 11:50 - Subjective Subjective: Had surgery on the right foot last night, no fevers but had some bleeding from the right foot stump. Objective - Vital Signs/Intake and Output Vital Signs (last 24 hours): Temp Pulse Resp BP Pulse Ox 98.3 F 62 16 105/40 L 94 L 10/05/17 06:25 10/05/17 06:25 10/05/17 06:25 10/05/17 06:25 10/04/17 22:00 Intake and Output: 10/05/17 10/05/17 06:59 18:59 Intake Total 260 Balance 260 - Medications Medications: Current Medications Albuterol/Ipratropium (Duoneb 3 Mg/0.5 Mg (3 Ml) Ud) 3 ml IH [id number] [facility] Last Admin: 10/05/17 02:21 Dose: Not Given Aspirin (Ecotrin) 81 mg PO DAILY [facility] Last Admin: 10/04/17 14:52 Dose: Not Given Atorvastatin Calcium (Lipitor) 40 mg PO DIN [facility] Last Admin: 10/04/17 22:29 Dose: 40 mg Calcium Acetate (Phoslo) 1,334 mg PO WM [facility] Last Admin: 10/04/17 12:50 Dose: Not Given Ergocalciferol (Drisdol 50,000 Intl Units Cap) 1 cap PO WED [facility] Last Admin: 10/04/17 12:48 Dose: 1 cap Fenofibrate (Tricor) 145 mg PO DAILY [facility] Last Admin: 10/04/17 12:48 Dose: 145 mg Fentanyl (Fentanyl) 25 mcg IV Q5M PRN PRN Reason: Pain, moderate (4-7) Glipizide (Glucotrol) 10 mg PO DAILY [facility] Last Admin: 10/04/17 12:50 Dose: Not Given Hydralazine HCl (Apresoline) 25 mg PO BID [facility] Last Admin: 10/04/17 14:50 Dose: Not Given Meropenem 500 mg/ Sodium (Chloride) 50 mls @ 100 mls/hr IVPB Q12 [facility] PRN Reason: Protocol Stop: 10/12/17 14:01 Last Admin: 10/04/17 22:29 Dose: 100 mls/hr Dextrose (Dextrose 10% In Water) 500 mls @ 20 mls/hr IV .Q24H [facility] Last Admin: 10/04/17 13:22 Dose: 20 mls/hr Insulin Human NPH (Humulin N) 60 units SC QPM [facility] Last Admin: 10/03/17 18:14 Dose: 60 units Insulin Human Regular (Humulin R Low) 0 units SC ACHS [facility] PRN Reason: Protocol Last Admin: 10/04/17 18:56 Dose: Not Given Levothyroxine Sodium (Synthroid) 25 mcg PO 0600 [facility] Last Admin: 10/05/17 06:44 Dose: 25 mcg Loratadine (Claritin) 10 mg PO HS [facility] Last Admin: 10/04/17 22:12 Dose: 10 mg Metoprolol Tartrate (Lopressor) 50 mg PO QPM [facility] Montelukast Sodium (Singulair) 10 mg PO [facility] Last Admin: 10/04/17 22:13 Dose: 10 mg Morphine Sulfate (Morphine) 2 mg IVP Q5H PRN PRN Reason: Pain, severe (8-10) Last Admin: 10/04/17 15:40 Dose: 2 mg Multivitamins (Thera Tab) 1 tab PO DAILY [facility] Last Admin: 10/04/17 12:51 Dose: 1 tab Non-Formulary Medication (Bimatoprost [Lumigan]) 1 drp OU [facility] Last Admin: 10/04/17 22:00 Dose: Not Given Non-Formulary Medication (Diclofenac Sodium [Voltaren]) 1 appl TOP DAILY [facility] Last Admin: 10/04/17 14:50 Dose: Not Given Non-Formulary Medication (Salmeterol Xinafoate/Fluticaso [Advair Hfa 230-21]) 1 puff IH BID [facility] Last Admin: 10/04/17 12:51 Dose: Not Given Tsjih-8-Utlg Ethyl Esters (Lovaza) 2 gm PO BID [facility] Last Admin: 10/04/17 12:49 Dose: 2 gm Ondansetron HCl (Zofran Inj) 4 mg IVP Q6H PRN PRN Reason: Nausea/Vomiting Pantoprazole Sodium (Protonix Ec Tab) 40 mg PO DAILY [facility] Last Admin: 10/04/17 12:48 Dose: 40 mg Pregabalin (Lyrica) 50 mg PO [facility] Last Admin: 10/04/17 22:13 Dose: 50 mg Sevelamer HCl (Renagel) 1,600 mg PO TID [facility] Last Admin: 10/04/17 14:52 Dose: Not Given Sodium Chloride ([place] Nasal [place]) 1 ml NS Q2H PRN PRN Reason: Nasal congestion Tamsulosin HCl (Flomax) 0.4 mg PO HS [facility] Last Admin: 10/04/17 22:13 Dose: 0.4 mg Ticagrelor (Brilinta) 90 mg PO BID [facility] Last Admin: 10/03/17 18:10 Dose: 90 mg - Labs Labs: 10/04/17 20:15 10/04/17 09:30 PT 19.3 SECONDS (9.4-12.5) H 10/02/17 21:20 INR 1.68 (0.93-1.08) H 10/02/17 21:20 APTT 32.0 Seconds (25.1-36.5) 10/02/17 21:20 - Constitutional Appears: Non-toxic, Chronically Ill - Head Exam Head Exam: NORMAL INSPECTION - Respiratory Exam Respiratory Exam: Decreased Breath Sounds - Cardiovascular Exam Cardiovascular Exam: +S1, +S2 - GI/Abdominal Exam GI & Abdominal Exam: Soft. absent: Tenderness Assessment and Plan - Assessment and Plan (Free Text) Plan: Assessment Right foot cellulitis with wet gangrene, R/O osteomyelitis S/P TMA POD #1 history of bilateral healthcare-associated pneumonia history of sepsis with gastroenteritis and C. diff. associated diarrhea ESRD on HD DM obesity CAD S/P PCI retinopathy history of pancreatitis Plan continue Merrem day 3 pending OR cultures and pathology will continue to monitor clinically
--- NOTE | 2017-10-05 18:00 | PN ---
DATE: 10/05/2017 SUBJECTIVE: The patient is seen lying in bed. He complains of pain in his right foot. He underwent right TMA. Postop day #1 today. He denies any chest tightness. He denies any shortness of breath. PHYSICAL EXAMINATION: GENERAL: Middle-aged male, lying in bed. VITAL SIGNS: Blood pressure 100/43, heart rate 78, respiratory rate 18-20, temperature 98.5. HEENT: Normocephalic, atraumatic. NECK: Supple, no JVD. LUNGS: Bilateral equal air entry, bilateral equal expansion. CARDIAC: S1 and S2, regular rate and rhythm, no murmur, no rub. ABDOMEN: Obese, distended, soft, nontender, bowel sounds present. EXTREMITIES: Dressing of the right foot. LABORATORY DATA: WBC 10.6, hemoglobin 7.7, hematocrit 24, platelets 172. His hemoglobin was 6.3 last night . He received 2 units of blood. Sodium 135, potassium 4.8, chloride 96, CO2 of 30, BUN 29, creatinine 4.9, glucose 211, calcium 8.2, iron saturation 54, iron 105, total bili 1. Wound culture, no growth so far. Blood culture, no growth. CURRENT MEDICATIONS: Hydralazine 25 b.i.d. on hold right now; Brilinta 90 b.i.d., last dose given on 10/03/2017, D5W on hold, diclofenac, Drisdol, DuoNeb, Ecotrin, fentanyl, Flomax, Glucotrol, insulin, Lipitor, Lopressor 50, meropenem 500 every 12, morphine 2 mg, oxycodone, PhosLo, Protonix, Singulair, Synthroid. ASSESSMENT: 1. Dry and wet gangrene of right foot and toes, status post aggressive transmetatarsal amputation. 2. Severe anemia, status post 2 units of blood transfusion. 3. Low-grade fever, monitor white count, repeat cultures. 4. Insulin-dependent diabetes mellitus. 5. Hypertension. 6. Coronary artery disease, recent percutaneous transluminal coronary angioplasty and stent. 7. End-stage renal disease. PLAN: 1. Dialysis tomorrow. 2. Continue antibiotics. 3. Pain management. 4. Monitor H&H. 5. May require further transfusion tomorrow. Eva Malcolm MD [facility] # [id number]
[2017-10-05] MEDS: Insulin Human NPH 1 UNITS/0.01 ML SC SCH (18:30)
--- NOTE | 2017-10-05 19:16 | PN ---
DATE: 10/05/2017 PULMONARY PROGRESS NOTE REFERRING PHYSICIAN: Dr. Kessler. SUBJECTIVE: He is lying in the bed, right foot has a dressing status post partial amputation. Night was unremarkable. Tolerated BiPAP well. No headache. No rhinitis. No nausea. No vomiting. No diarrhea. Does have some pain of the right foot. OBJECTIVE: GENERAL: In n distress. VITAL SIGNS: Temperature is 99, heart rate 67, respiratory rate is 20, blood pressure 100/43, pulse ox 98% on nasal cannula. HEENT: Moist mucous membrane. Crowded airway. NECK: Supple. No JVD. LUNGS: Have a fair airflow with few rhonchi. HEART: S1 and S2. ABDOMEN: Soft, nontender. No organomegaly. EXTREMITIES: Right foot has a dressing. NEUROLOGICAL: Awake, alert, follows simple command. MEDICATIONS: He is on Brilinta 90 mg twice a day, Claritin 10 mg daily, Voltaren affected area, vitamin D 50,000 units weekly, DuoNeb every 6 hours, Ecotrin 81 mg daily, fentanyl 25 mcg IV every 5 minutes p.r.n., Flomax 0.4 mg At bedtime, glipizide 10 mg daily, insulin coverage, Lipitor 40 mg daily, metoprolol tartrate 50 mg daily, Lovaza 2 g twice a day, Lyrica 50 mg at bedtime, meropenem 500 mg every 12 hours, morphine 2 mg every 5 minutes p.r.n. nasal saline p.r.n. basis, Percocet 5/325 one tab three times a day p.r.n., calcium acetate with the meals, Protonix 40 mg daily, Renagel 1.6 g three times a day, Advair is 1 puff twice a day, Singulair 10 mg daily, Synthroid 25 mcg daily, multivitamins daily, Tricor 145 mg daily, Zofran p.r.n. basis. LABORATORY DATA: Shows hemoglobin 7.7, hematocrit 24, WBC 10.6, platelet is 172. Sodium 135, potassium 4.8, chloride 196, bicarbonate 30, BUN 29, creatinine 4.9, glucose 211, calcium is 8.2, iron is 105. AST 52, ALT 34, alk phos is 68, albumin is 2.7. Microbiology: Blood culture has been negative since yesterday. IMPRESSION AND PLAN: Status of partial amputation of the right foot secondary to ischemia, has ischemic cardiomyopathy, chronic obstructive lung disease, obstructive sleep apnea syndrome, coronary artery disease, history of coronary stent, diabetes, hypertension, renal failure, dialysis dependent, peripheral neuropathy. Pulmonary point of view, doing okay. Continue bilevel positive airway pressure while sleeping. Keep head at 45 degrees. Bronchodilator, pain management, gastric prophylaxis, antiplatelet therapy. Infectious Diseases , Cardiology and Podiatry followup. Follow up labs in the morning. Thank you and we will follow with you. Jarred Escalera MD
--- NOTE | 2017-10-05 22:11 | PCM.OP ---
Operative Report - Operative Report Date of Surgery/Procedure: 10/04/17 Time of Surgery/Procedure: 16:30 Surgeon: Dr. Villanueva DPM Air Conditioning Supervisor: Dr. Jeffers DPM PGY-2, Dr. Tran DPM PGY-1 Anesthesia/Sedation: Dr. Avelino FUENTES with local Pre-Operative Diagnosis: right foot wet gangrene with ulceration and cellulitis secondary to DM and PAD Post-Operative Diagnosis: right foot wet gangrene with ulceration and cellulitis secondary to DM and PAD Indication for Surgery: The patient is a 52 year old male with the above diagnoses. The patient has exhausted all conservative treatment at this time and now requires surgical intervention. Patient has developed wet gangrene to the entire forefoot with black necrotic tissue noted to entire digit 1 and 3. It is also noted that the entire medial arch has nonviable skin present and fibrotic with sloughing present. The patient signed the consent after careful explanation of risks, benefits, complications and alternatives for surgical procedure. No guarantees were given nor implied. NPO status was confirmed prior to taking patient to the OR. Operative Findings: see procedure below for details. about 10 cc of purulence drainage from medial plantar arch. extensive nonviable soft tissue at the medial plantar arch Procedure/Operation Description: Preparation: The patient was brought in to the operating room and placed on the operating room table in a supine position. Timeout was performed for identification of the correct patient and procedure. After induction of IV sedation, the left lower extremity was then prepped and draped in normal sterile manner and the procedure began. 20cc of a 2% Lidocaine plain injected in an ankle block fashion to the right lower extremity to obtain local anesthesia. No tourniquet was used during the procedure. Procedure: Attention was directed to the dorsum aspect of right forefoot at the level of the MPJs. Nonviable tissue noted distal from the MPJs to the toes distally, including gangrenous digits 1 and 3 with drainage and odor exhibiting wet gangrene. Using a marking pen margins were drawn to distinguish nonviable from viable tissue on dorsum foot which was at the level of the midfoot. Attention was now directed to the plantar aspect of the right midfoot. The entire medial plantar arch was noted to have nonviable, fibrotic tissue. Using a marking pen margins were drawn to distinguish nonviable tissue from viable tissue plantar, laterally at the level of the midfoot, plantar medially at the level of the calcanealnavicular joint. At this time, using # 15 blade, an incision outlining the margins to create a fish mouth type incision circumferentially around the midfoot and was deepened through the subcutaneous tissues using sharp and blunt dissection. An additional 4cm incision was made along the course medial plantar arch due to nonviable soft tissue. At this time , approximately 10cc of purulence was expressed from the medial plantar midfoot. All necrotic and non-viable soft tissue was then excised from the transmetatarsal amputation site using a sterile 15 blade and sterile forceps. Next, all soft tissue was freed from the distal aspect of the neck and shaft of the 1st metatarsal and the neck and shaft of metatarsals 2-5, and periosteum was freed using a #15 blade. A sagittal saw was then used to resect the first metatarsal at the level of the distal 1/3 of metatarsal shaft and the blade was angled from dorsomedial to plantar lateral. All devitalized bone and tissue was then passed off the field and sent for pathology. This step was then repeated for metatarsals 2-5. All devitalized bone and tissue was passed off the field and sent for pathology. The remaining sharp bone edges were then debrided down to smoothness using a bone rasp pulse lavage was utilized to copiously irrigate the abscess site with 3L of saline solution. During this time, deep wound culture was taken from the plantar medial arch and passed off the operative field to be sent to lab. The lateral plantar flap was then brought up dorsally and angulated medially to cover the entire distal aspects of the distal metatarsals 1-5. The subcuticular tissues were then reapproximated and coapted utilizing #3-0 Vicryl. The skin was then reapproximated and coapted utilizing #3 -0 nylon and fitz. Note that the medial plantar ulceration measuring approximately 10 cm x 7 cm x 2 cm remains open. No enough viable soft tissue to cover ulceration. Ulceration was packed with 1 idoform, gauze, abd. Transmetatarsal amputation surgical flap was dressed with adaptic, gauze, and abd. Right foot was then dressed with kerlix, additional ABD, and Coban. Estimated Blood Loss: 100 cc Drains: none Complications: none Specimen: right foot necrotic soft tissue and bone Discharge & Condition: Postoperative Condition: The patient tolerated the anesthesia and procedure well and was escorted to the recovery room with vital signs stable and neurovascular status intact to the right lower extremity. Patient is to be nonweight bearing to the right lower extremity. Podiatry will continue to follow patient while in house. Wound VAC will be placed on the surgical site when on floors.
[2017-10-05] MEDS: BIMATOPROST OU SCH (22:23)
--- NOTE | 2017-10-06 00:21 | PN ---
DATE: 10/05/2017 SUBJECTIVE: The patient was seen and examined at bedside. Complaining about pain. Even he is on morphine 2 mg every 5-4 hours, but then I have to put Percocet in between. In the morning, dressing was done, according to the patient it was painful and it was bleeding. The patient's right foot has dressing status post partial amputation. Night was unremarkable. Tolerated BiPAP well. No headache. No arthritis. No nausea or vomiting. No headache. No fever. No chill. PHYSICAL EXAMINATION: VITAL SIGNS: Temperature 99, heart rate 67, respiratory rate 20, blood pressure 100/47, pulse oximetry 98 on nasal cannula. HEENT: Head normocephalic, atraumatic. Eyes PERRLA. Extraocular muscles intact. Conjunctivae clear. Nose patent. Mucous membrane moist. NECK: Supple. No carotid bruit. No JVD or thyromegaly. CHEST: Bilaterally symmetrical. HEART: S1 and S2 positive. LUNGS: A fair airflow with rhonchi. ABDOMEN: Soft, nontender. No organomegaly. EXTREMITIES: Right foot has dressing. NEUROLOGICAL: Awake, alert. Follows simple commands. MEDICATIONS: Brilinta, Claritin, Voltaren, DuoNeb, Ecotrin, fentanyl, Flomax, glipizide, Lipitor, metoprolol, Lovaza, meropenem, Percocet, calcium acetate, Protonix, Renagel, Singulair, multivitamins. LABORATORY DATA: Hemoglobin 7.7, hematocrit 24, white blood cells 10.6, platelets 172. Sodium 135, potassium 4.8, BUN 29, creatinine 4.9, AST 52, ALT 32. ASSESSMENT AND PLAN: Mr. Jason Berger, 52-year-old male with multiple medical problems, has renal insufficiency, on hemodialysis three times a week, diabetic nephropathy, diabetic retinopathy, status post partial amputation of the right foot secondary to ischemia, gangrenous changes, has ischemic cardiomyopathy, chronic obstructive lung disease, obstructive sleep apnea syndrome, coronary artery disease, history of coronary artery stenting, diabetes mellitus, hypertension. The patient was having pain in the foot, was getting morphine. I gave Percocet for breakthrough pain. Continue bilevel positive airway pressure while sleeping. Bronchodilators, gastric prophylaxis, antiplatelet therapy. GI, Infectious Disease and Podiatry is on the case. Repeat labs. Discussion done with the patient and nursing staff. We will follow up. Diana Kessler MD RACHEL
[2017-10-06] MEDS: Oxycodone/Acetaminophen 5/325 mg Tab PO PRN ×4 (00:51→20:09)
[2017-10-06] MEDS: Albuterol-Ipratrop 3 mg / 0.5 (3 ml) UD IH SCH ×4 (01:28→19:33)
[2017-10-06] MEDS ORDERED: Dextrose 50% SYRINGE Inj (50 ml) ONE (04:00)
[2017-10-06] MEDS ORDERED: Dextrose 50% SYRINGE Inj (50 ml) IVP ONE (04:08)
[2017-10-06] MEDS: Levothyroxine 25 MCG TAB PO SCH (05:30)
--- NOTE | 2017-10-06 06:58 | CP.PCM.PN ---
Subjective - Date & Time of Evaluation Date of Evaluation: 10/06/17 Time of Evaluation: 06:10 - Subjective Subjective: no distress,CPAP/BIPAP on, sleeping but easily awaken Reason for consultation and follow up:Cardiac evaluation for questionable history of vegetation on pacemaker when he was at [facility] [place]. Admitted for right toe ulcer/gangrene. History of peripheral arterial disease, coronary artery disease with multiple stents, sick sinus syndrome with PPM, history of fall with subdural hematoma and was on Brilinta at that time.(held off Brilinta for 2 weeks then resumed due to recent stent placement) Seen and examined by me and Dr. Erickson Objective - Vital Signs/Intake and Output Vital Signs (last 24 hours): Temp Pulse Resp BP Pulse Ox 98.8 F 91 H 18 121/49 L 95 10/05/17 22:00 10/06/17 06:03 10/05/17 22:00 10/05/17 22:00 10/05/17 22:00 Intake and Output: 10/05/17 10/06/17 18:59 06:59 Intake Total 907 Balance 907 - Medications Medications: Current Medications Albuterol/Ipratropium (Duoneb 3 Mg/0.5 Mg (3 Ml) Ud) 3 ml IH [id number] [facility] Last Admin: 10/06/17 01:28 Dose: Not Given Aspirin (Ecotrin) 81 mg PO DAILY [facility] Last Admin: 10/05/17 10:13 Dose: 81 mg Atorvastatin Calcium (Lipitor) 40 mg PO DIN [facility] Last Admin: 10/05/17 18:32 Dose: 40 mg Calcium Acetate (Phoslo) 1,334 mg PO WM [facility] Last Admin: 10/05/17 18:34 Dose: Not Given Ergocalciferol (Drisdol 50,000 Intl Units Cap) 1 cap PO WED [facility] Last Admin: 10/04/17 12:48 Dose: 1 cap Fenofibrate (Tricor) 145 mg PO DAILY [facility] Last Admin: 10/05/17 10:13 Dose: Not Given Fentanyl (Fentanyl) 25 mcg IV Q5M PRN PRN Reason: Pain, moderate (4-7) Glipizide (Glucotrol) 10 mg PO DAILY [facility] Last Admin: 10/05/17 10:13 Dose: 10 mg Hydralazine HCl (Apresoline) 25 mg PO BID [facility] Last Admin: 10/05/17 18:31 Dose: Not Given Meropenem 500 mg/ Sodium (Chloride) 50 mls @ 100 mls/hr IVPB Q12 [facility] PRN Reason: Protocol Stop: 10/12/17 14:01 Last Admin: 10/05/17 22:21 Dose: 100 mls/hr Dextrose (Dextrose 10% In Water) 500 mls @ 20 mls/hr IV .Q24H [facility] Last Admin: 10/04/17 13:22 Dose: 20 mls/hr Insulin Human NPH (Humulin N) 60 units SC QPM [facility] Last Admin: 10/05/17 18:30 Dose: 60 units Insulin Human Regular (Humulin R Low) 0 units SC ACHS CARLOS PRN Reason: Protocol Last Admin: 10/05/17 22:22 Dose: Not Given Levothyroxine Sodium (Synthroid) 25 mcg PO 0600 [facility] Last Admin: 10/06/17 05:30 Dose: 25 mcg Loratadine (Claritin) 10 mg PO HS [facility] Last Admin: 10/05/17 22:20 Dose: 10 mg Metoprolol Tartrate (Lopressor) 50 mg PO QPM [facility] Last Admin: 10/05/17 18:33 Dose: Not Given Montelukast Sodium (Singulair) 10 mg PO [facility] Last Admin: 10/05/17 22:21 Dose: 10 mg Morphine Sulfate (Morphine) 2 mg IVP Q5H PRN PRN Reason: Pain, severe (8-10) Last Admin: 10/05/17 20:29 Dose: 2 mg Multivitamins (Thera Tab) 1 tab PO DAILY [facility] Last Admin: 10/05/17 10:13 Dose: 1 tab Non-Formulary Medication (Bimatoprost [Lumigan]) 1 drp OU HS [facility] Last Admin: 10/05/17 22:23 Dose: Not Given Non-Formulary Medication (Diclofenac Sodium [Voltaren]) 1 appl TOP DAILY [facility] Last Admin: 10/05/17 10:16 Dose: Not Given Non-Formulary Medication (Salmeterol Xinafoate/Fluticaso [Advair Hfa 230-21]) 1 puff IH BID [facility] Last Admin: 10/05/17 18:34 Dose: Not Given [id number] Ethyl Esters (Lovaza) 2 gm PO BID [facility] Last Admin: 10/05/17 18:32 Dose: 2 gm Ondansetron HCl (Zofran Inj) 4 mg IVP Q6H PRN PRN Reason: Nausea/Vomiting Oxycodone/Acetaminophen (Percocet 5/325 Mg Tab) 1 tab PO TID PRN PRN Reason: Pain, moderate (4-7) Stop: 10/08/17 14:01 Last Admin: 10/06/17 00:51 Dose: 1 tab Pantoprazole Sodium (Protonix Ec Tab) 40 mg PO DAILY [facility] Last Admin: 10/05/17 10:13 Dose: 40 mg Pregabalin (Lyrica) 50 mg PO [facility] Last Admin: 10/05/17 22:20 Dose: 50 mg Sevelamer HCl (Renagel) 1,600 mg PO TID [facility] Last Admin: 10/05/17 18:32 Dose: 1,600 mg Sodium Chloride ([place] Nasal [place]) 1 ml NS Q2H PRN PRN Reason: Nasal congestion Tamsulosin HCl (Flomax) 0.4 mg PO [facility] Last Admin: 10/05/17 22:20 Dose: 0.4 mg Ticagrelor (Brilinta) 90 mg PO BID [facility] Last Admin: 10/03/17 18:10 Dose: 90 mg - Labs Labs: 10/05/17 11:56 10/05/17 11:56 PT 19.3 SECONDS (9.4-12.5) H 10/02/17 21:20 INR 1.68 (0.93-1.08) H 10/02/17 21:20 APTT 32.0 Seconds (25.1-36.5) 10/02/17 21:20 - Constitutional Appears: No Acute Distress - Eye Exam Eye Exam: Normal appearance - ENT Exam ENT Exam: Mucous Membranes Moist - Respiratory Exam Respiratory Exam: Decreased Breath Sounds, NORMAL BREATHING PATTERN Additional comments: BIPAP/CPAP on - Cardiovascular Exam Cardiovascular Exam: +S1, +S2 Additional comments: PPM - GI/Abdominal Exam GI & Abdominal Exam: Soft, Normal Bowel Sounds - Exam Additional comments: Hemodialysis 3x a week - Extremities Exam Additional comments: right foot pearl wrapped left arm AV graft positive bruit - Neurological Exam Neurological Exam: Alert, Awake, Oriented x3 - Psychiatric Exam Psychiatric exam: Normal Affect - Skin Skin Exam: Dry, Warm Assessment and Plan - Assessment and Plan (Free Text) Assessment: A 52 year old male who was admitted due to right toe ulcer/gangrene.Consult was called for evaluation for questionable history of vegetation on pacemaker when he was at [facility] [place]. History of peripheral arterial disease, coronary artery disease with multiple stents, sick sinus syndrome with PPM, history of fall with subdural hematoma and was on Brilinta at that time.(held off Brilinta for 2 weeks then resumed due to recent stent placement),resistant to Plavix. ESRD on hemodialysis, diabetes, diabetic neuropathy, diabetic nephropathy, retinopathy, COPD, history of pancreatitis, hypertriglyceridemia, CVA,spinal stenosis. Recently admitted at [facility] and recommended amputation of right leg but family refused and discharged. ECHO done 10/03/17-LVEF 60-65%, Moderate to severe AR, moderate aortic stenosis, moderate MR, moderate to severe TR Echogenic mobile structure attached to aortic valve leaflet, with same consistency of valve, can not rule out vegetation versus degenerative changes, will correlate clinically with blood cultures. Post right foot transmetatarsal amputation 10/04/17. Transfused 3 units PRBC for low hemoglobin.10/05/17. Plan: Episode of hypoglycemia this morning, D50W given,stabilized Status post right foot transmetatarsal amputation 10/04/17 3 units PRBC transfused for low hemoglobin and hematocrit Cardiac status stable Heart rate and blood pressure controlled For hemodialysis today Awaiting blood culture results On IV antibiotics, ID on consult Continue current treatment Continue current medications Fall precaution Will follow up Plan and treatment discussed with Dr. Erickson
--- NOTE | 2017-10-06 07:03 | CP.PCM.PN ---
Objective - Vital Signs/Intake and Output Vital Signs (last 24 hours): Temp Pulse Resp BP Pulse Ox 98.8 F 91 H 18 121/49 L 95 10/05/17 22:00 10/06/17 06:03 10/05/17 22:00 10/05/17 22:00 10/05/17 22:00 Intake and Output: 10/05/17 10/06/17 18:59 06:59 Intake Total 907 Balance 907 - Medications Medications: Current Medications Albuterol/Ipratropium (Duoneb 3 Mg/0.5 Mg (3 Ml) Ud) 3 ml IH [id number] [facility] Last Admin: 10/06/17 01:28 Dose: Not Given Aspirin (Ecotrin) 81 mg PO DAILY [facility] Last Admin: 10/05/17 10:13 Dose: 81 mg Atorvastatin Calcium (Lipitor) 40 mg PO DIN [facility] Last Admin: 10/05/17 18:32 Dose: 40 mg Calcium Acetate (Phoslo) 1,334 mg PO WM [facility] Last Admin: 10/05/17 18:34 Dose: Not Given Ergocalciferol (Drisdol 50,000 Intl Units Cap) 1 cap PO WED [facility] Last Admin: 10/04/17 12:48 Dose: 1 cap Fenofibrate (Tricor) 145 mg PO DAILY [facility] Last Admin: 10/05/17 10:13 Dose: Not Given Fentanyl (Fentanyl) 25 mcg IV Q5M PRN PRN Reason: Pain, moderate (4-7) Glipizide (Glucotrol) 10 mg PO DAILY [facility] Last Admin: 10/05/17 10:13 Dose: 10 mg Hydralazine HCl (Apresoline) 25 mg PO BID [facility] Last Admin: 10/05/17 18:31 Dose: Not Given Meropenem 500 mg/ Sodium (Chloride) 50 mls @ 100 mls/hr IVPB Q12 [facility] PRN Reason: Protocol Stop: 10/12/17 14:01 Last Admin: 10/05/17 22:21 Dose: 100 mls/hr Dextrose (Dextrose 10% In Water) 500 mls @ 20 mls/hr IV .Q24H [facility] Last Admin: 10/04/17 13:22 Dose: 20 mls/hr Insulin Human NPH (Humulin N) 60 units SC QPM [facility] Last Admin: 10/05/17 18:30 Dose: 60 units Insulin Human Regular (Humulin R Low) 0 units SC [facility] PRN Reason: Protocol Last Admin: 10/05/17 22:22 Dose: Not Given Levothyroxine Sodium (Synthroid) 25 mcg PO 0600 [facility] Last Admin: 10/06/17 05:30 Dose: 25 mcg Loratadine (Claritin) 10 mg PO HS [facility] Last Admin: 10/05/17 22:20 Dose: 10 mg Metoprolol Tartrate (Lopressor) 50 mg PO QPM [facility] Last Admin: 10/05/17 18:33 Dose: Not Given Montelukast Sodium (Singulair) 10 mg PO HS [facility] Last Admin: 10/05/17 22:21 Dose: 10 mg Morphine Sulfate (Morphine) 2 mg IVP Q5H PRN PRN Reason: Pain, severe (8-10) Last Admin: 10/05/17 20:29 Dose: 2 mg Multivitamins (Thera Tab) 1 tab PO DAILY [facility] Last Admin: 10/05/17 10:13 Dose: 1 tab Non-Formulary Medication (Bimatoprost [Lumigan]) 1 drp OU HS [facility] Last Admin: 10/05/17 22:23 Dose: Not Given Non-Formulary Medication (Diclofenac Sodium [Voltaren]) 1 appl TOP DAILY [facility] Last Admin: 10/05/17 10:16 Dose: Not Given Non-Formulary Medication (Salmeterol Xinafoate/Fluticaso [Advair Hfa 230-21]) 1 puff IH BID [facility] Last Admin: 10/05/17 18:34 Dose: Not Given [id number] Ethyl Esters (Lovaza) 2 gm PO BID [facility] Last Admin: 10/05/17 18:32 Dose: 2 gm Ondansetron HCl (Zofran Inj) 4 mg IVP Q6H PRN PRN Reason: Nausea/Vomiting Oxycodone/Acetaminophen (Percocet 5/325 Mg Tab) 1 tab PO TID PRN PRN Reason: Pain, moderate (4-7) Stop: 10/08/17 14:01 Last Admin: 10/06/17 00:51 Dose: 1 tab Pantoprazole Sodium (Protonix Ec Tab) 40 mg PO DAILY [facility] Last Admin: 10/05/17 10:13 Dose: 40 mg Pregabalin (Lyrica) 50 mg PO HS [facility] Last Admin: 10/05/17 22:20 Dose: 50 mg Sevelamer HCl (Renagel) 1,600 mg PO TID [facility] Last Admin: 10/05/17 18:32 Dose: 1,600 mg Sodium Chloride ([place] Nasal [place]) 1 ml NS Q2H PRN PRN Reason: Nasal congestion Tamsulosin HCl (Flomax) 0.[address] [facility] Last Admin: 10/05/17 22:20 Dose: 0.4 mg Ticagrelor (Brilinta) 90 mg PO BID [facility] Last Admin: 10/03/17 18:10 Dose: 90 mg - Labs Labs: 10/05/17 11:56 10/05/17 11:56 PT 19.3 SECONDS (9.4-12.5) H 10/02/17 21:20 INR 1.68 (0.93-1.08) H 10/02/17 21:20 APTT 32.0 Seconds (25.1-36.5) 10/02/17 21:20 Assessment and Plan - Assessment and Plan (Free Text) Assessment: A 52 year old male who was admitted due to right toe ulcer/gangrene.Consult was called for evaluation for questionable history of vegetation on pacemaker [place] [facility] [place] History of peripheral arterial disease, coronary artery disease with multiple stents, sick sinus syndrome with PPM, history of fall with subdural hematoma and was on Brilinta at that time.(held off Brilinta for 2 weeks then resumed due to recent stent placement),resistant to Plavix. ESRD on hemodialysis, diabetes, diabetic neuropathy, diabetic nephropathy, retinopathy, COPD, history of pancreatitis, hypertriglyceridemia, CVA,spinal stenosis. [place] [facility] [place] recommended [place] of right leg but family refused and discharged. ECHO done 10/03/17-LVEF 60-65%, Moderate to severe AR, moderate aortic stenosis, moderate MR, moderate to severe TR Echogenic mobile structure attached to aortic valve leaflet, with same consistency of valve, can not rule out vegetation versus degenerative changes, will correlate clinically with blood cultures. Post right foot transmetatarsal amputation 10/04/17. Transfused 3 units PRBC for low hemoglobin.10/05/17. Plan: Episode of hypoglycemia this morning, D50W given,stabilized Status post right foot transmetatarsal amputation 10/04/17 3 units PRBC transfused for low hemoglobin and hematocrit Cardiac status stable Heart rate and blood pressure controlled For hemodialysis today Awaiting blood culture results On IV antibiotics, ID on consult Continue current treatment Continue current medications Fall precaution Will follow up Plan and treatment discussed with Dr. Erickson
[2017-10-06 10:47] LABS: HEMOGLOBIN 8.5 g/dL (14.0-18.0); MEAN CELL VOLUME 86.2 fl (80.0-105.0); MEAN CORPUSCULAR HEMOGLOBIN 28.5 pg (25.0-35.0); MEAN CORPUSCULAR HGB CONC 33.1 g/dl (31.0-37.0); MEAN PLATELET VOLUME 10.8 fl (7.0-11.0); RBC 2.98 10^6/uL (3.5-6.1); RED CELL DISTRIBUTION WIDTH 18.2 % (11.5-14.5)
[2017-10-06 10:50] LABS: CALCIUM 8.6 mg/dL (8.4-10.5)
[2017-10-06] MEDS: DICLOFENAC SODIUM APPL TOP SCH (10:52)
[2017-10-06] MEDS: Insulin Reg-LOW-Coverage SC SCH ×4 (10:53→22:20)
[2017-10-06] MEDS: FLUTICASO IH SCH ×2 (10:54→18:41)
[2017-10-06] MEDS: SALMETEROL XINAFOATE IH SCH ×2 (10:54→18:41)
[2017-10-06] MEDS: Omega-3-Acid Ethyl Esters 1 GM Cap PO SCH ×2 (13:02→18:05)
[2017-10-06] MEDS: Pantoprazole 40 mg EC Tab PO SCH (13:03)
[2017-10-06] MEDS: Multivitamin Therapeutic Tab PO SCH (13:03)
[2017-10-06] MEDS: Meropenem 500 MG in Sodium Chloride 0.9% 50 ML IVPB SCH ×2 (13:04→22:18)
[2017-10-06] MEDS: Morphine 2 mg/ml ISec IVP PRN (13:20)
--- NOTE | 2017-10-06 13:54 | CP.PCM.PN ---
<Ismael Jeffers - Last Filed: 10/06/17 13:49> Subjective - Date & Time of Evaluation Date of Evaluation: 10/06/17 Time of Evaluation: 13:49 - Subjective Subjective: Podiatry Progress Note- Dr. Villanueva/Dr. Quevedo 52 y/o male with PMH of COPD, CAD stents, ESRD on HD MWF, IDDM2 and HTN 2 days s /p right transmetatarsal amputation with debridement of bone and all nonviable soft tissue secondary to right foot wet gangrene secondary to DM and PAD. Patient is seen resting comfortably in bed, in NAD, and AA0x3. Patient is seen at bedside after dialysis. Patient reports pain to the right foot that comes and goes. Slept well. Dressing is clean, dry, and intact without strikethrough. Denies of any dizziness. Denies of nausea, fever, shortness of breath, chest pain or chills. Objective - Vital Signs/Intake and Output Vital Signs (last 24 hours): Temp Pulse Resp BP Pulse Ox 97.7 F 91 H 20 108/41 L 100 10/06/17 06:00 10/06/17 06:03 10/06/17 06:00 10/06/17 06:00 10/06/17 06:00 - Medications Medications: Current Medications Albuterol/Ipratropium (Duoneb 3 Mg/0.5 Mg (3 Ml) Ud) 3 ml IH [id number] [facility] Last Admin: 10/06/17 13:23 Dose: 3 ml Aspirin (Ecotrin) 81 mg PO DAILY [facility] Last Admin: 10/06/17 13:19 Dose: 81 mg Atorvastatin Calcium (Lipitor) 40 mg PO DIN [facility] Last Admin: 10/05/17 18:32 Dose: 40 mg Calcium Acetate (Phoslo) 1,334 mg PO WM [facility] Ergocalciferol (Drisdol 50,000 Intl Units Cap) 1 cap PO WED [facility] Last Admin: 10/04/17 12:48 Dose: 1 cap Fenofibrate (Tricor) 145 mg PO DAILY [facility] Glipizide (Glucotrol) 10 mg PO DAILY [facility] Last Admin: 10/06/17 10:53 Dose: Not Given Hydralazine HCl (Apresoline) 25 mg PO BID [facility] Last Admin: 10/06/17 10:52 Dose: Not Given Meropenem 500 mg/ Sodium (Chloride) 50 mls @ 100 mls/hr IVPB Q12 [facility] PRN Reason: Protocol Stop: 10/12/17 14:01 Last Admin: 10/06/17 13:04 Dose: 100 mls/hr Dextrose (Dextrose 10% In Water) 500 mls @ 20 mls/hr IV .Q24H [facility] Last Admin: 10/04/17 13:22 Dose: 20 mls/hr Insulin Human NPH (Humulin N) 50 units SC QPM [facility] Insulin Human Regular (Humulin R Low) 0 units SC ACHS [facility] PRN Reason: Protocol Last Admin: 10/06/17 10:53 Dose: Not Given Levothyroxine Sodium (Synthroid) 25 mcg PO 0600 [facility] Last Admin: 10/06/17 05:30 Dose: 25 mcg Linezolid (Zyvox) 600 mg PO BID [facility] PRN Reason: Protocol Loratadine (Claritin) 10 mg PO HS [facility] Last Admin: 10/05/17 22:20 Dose: 10 mg Metoprolol Tartrate (Lopressor) 50 mg PO QPM [facility] Last Admin: 10/05/17 18:33 Dose: Not Given Montelukast Sodium (Singulair) 10 mg PO HS [facility] Last Admin: 10/05/17 22:21 Dose: 10 mg Morphine Sulfate (Morphine) 2 mg IVP Q5H PRN PRN Reason: Pain, severe (8-10) Last Admin: 10/06/17 13:20 Dose: 2 mg Multivitamins (Thera Tab) 1 tab PO DAILY [facility] Last Admin: 10/06/17 13:03 Dose: 1 tab Non-Formulary Medication (Bimatoprost [Lumigan]) 1 drp OU HS [facility] Last Admin: 10/05/17 22:23 Dose: Not Given Non-Formulary Medication (Diclofenac Sodium [Voltaren]) 1 appl TOP DAILY [facility] Last Admin: 10/06/17 10:52 Dose: Not Given Non-Formulary Medication (Salmeterol Xinafoate/Fluticaso [Advair Hfa 230-21]) 1 puff IH BID [facility] Last Admin: 10/06/17 10:54 Dose: Not Given Uvufc-6-Hdck Ethyl Esters (Lovaza) 2 gm PO BID [facility] Last Admin: 10/06/17 13:02 Dose: 2 gm Ondansetron HCl (Zofran Inj) 4 mg IVP Q6H PRN PRN Reason: Nausea/Vomiting Oxycodone/Acetaminophen (Percocet 5/325 Mg Tab) 1 tab PO TID PRN PRN Reason: Pain, moderate (4-7) Stop: 10/08/17 14:01 Last Admin: 10/06/17 07:28 Dose: 1 tab Pantoprazole Sodium (Protonix Ec Tab) 40 mg PO DAILY [facility] Last Admin: 10/06/17 13:03 Dose: 40 mg Pregabalin (Lyrica) 50 mg PO HS [facility] Last Admin: 10/05/17 22:20 Dose: 50 mg Sevelamer HCl (Renagel) 1,600 mg PO TID [facility] Last Admin: 10/06/17 13:03 Dose: 1,600 mg Sodium Chloride ([place] Nasal [place]) 1 ml NS Q2H PRN PRN Reason: Nasal congestion Tamsulosin HCl (Flomax) 0.4 mg PO [facility] Last Admin: 10/05/17 22:20 Dose: 0.4 mg Ticagrelor (Brilinta) 90 mg PO BID [facility] Last Admin: 10/03/17 18:10 Dose: 90 mg - Labs Labs: 10/06/17 10:31 10/06/17 10:31 PT 19.3 SECONDS (9.4-12.5) H 10/02/17 21:20 INR 1.68 (0.93-1.08) H 10/02/17 21:20 APTT 32.0 Seconds (25.1-36.5) 10/02/17 21:20 - Constitutional Appears: Well, Non-toxic, No Acute Distress - Extremities Exam Extremities Exam: absent: Calf Tenderness Additional comments: Dressing to the right lower extremity is clean, dry, and intact. No strikethrough noted to the right lower extremity Temperature gradient is warm to cool - Psychiatric Exam Psychiatric exam: Normal Affect, Normal Mood Assessment and Plan - Assessment and Plan (Free Text) Assessment: 52 y/o male with PMH of COPD, CAD stents, ESRD on HD MWF, IDDM2 and HTN 2 days s /p right transmetatarsal amputation with debridement of bone and all nonviable soft tissue secondary to right foot wet gangrene secondary to DM and PAD. Plan: Patient seen and evaluated All questions/concerns addressed Discussed plan with Dr. Quevedo Labs, vitals, and charts reviewed. WBC=14, H/H 8.5/25.7 Right foot X-rays s/p right foot surgery. Impression: There has been amputation at the level of the proximal metatarsals 1 through 5. Surgical clips are seen. There is air in the soft tissues. - Packing of idoform to plantar large plantar ulceration may micmick air in soft tissues; no fluctuance or abscess appreciated to right foot Dressing is clean dry and intact Will continue to monitor for serosangious strikethrough Will hold off Wound VAC until possibility Monday. Dressing to be clean, dry and intact. Do not get wet. Brillinta held. Will keep dressing on until Monday Do not WB to the right lower extremity SCDs while in bed c/w Multipodus boots. Patient to wear at all times while in bed. Physical therapy- evaluate and treat. Patient to be NWB to right lower extremity with assisting device. Patient reports having scooter in which patient will bring in from home. Intraop wound culture right foot- pending Intraop specimen right foot- pending c/w iv abx per ID Abx treatment for soft tissue infection per ID; intraop bony quality WNL Recommends TCU to work with physical therapy and abx treatment Will continue to closely follow while in house Upon discharge will follow up with Dr. Villanueva in wound care clinic <Adria Quevedo - Last Filed: 10/06/17 17:48> Objective - Vital Signs/Intake and Output Vital Signs (last 24 hours): Temp Pulse Resp BP Pulse Ox 99.3 F 67 18 174/51 H 100 10/06/17 14:00 10/06/17 14:00 10/06/17 14:00 10/06/17 14:00 10/06/17 14:00 - Medications Medications: Current Medications Albuterol/Ipratropium (Duoneb 3 Mg/0.5 Mg (3 Ml) Ud) 3 ml IH [id number] [facility] Last Admin: 10/06/17 13:23 Dose: 3 ml Aspirin (Ecotrin) 81 mg PO DAILY [facility] Last Admin: 10/06/17 13:19 Dose: 81 mg Atorvastatin Calcium (Lipitor) 40 mg PO DIN [facility] Last Admin: 10/05/17 18:32 Dose: 40 mg Calcium Acetate (Phoslo) 1,334 mg PO WM [facility] Ergocalciferol (Drisdol 50,000 Intl Units Cap) 1 cap PO WED [facility] Last Admin: 10/04/17 12:48 Dose: 1 cap Fenofibrate (Tricor) 145 mg PO DAILY [facility] Glipizide (Glucotrol) 10 mg PO DAILY [facility] Last Admin: 10/06/17 10:53 Dose: Not Given Hydralazine HCl (Apresoline) 25 mg PO BID [facility] Last Admin: 10/06/17 10:52 Dose: Not Given Meropenem 500 mg/ Sodium (Chloride) 50 mls @ 100 mls/hr IVPB Q12 [facility] PRN Reason: Protocol Stop: 10/12/17 14:01 Last Admin: 10/06/17 13:04 Dose: 100 mls/hr Dextrose (Dextrose 10% In Water) 500 mls @ 20 mls/hr IV .Q24H [facility] Last Admin: 10/04/17 13:22 Dose: 20 mls/hr Insulin Human NPH (Humulin N) 50 units SC QPM [facility] Insulin Human Regular (Humulin R Low) 0 units SC ACHS [facility] PRN Reason: Protocol Last Admin: 10/06/17 10:53 Dose: Not Given Levothyroxine Sodium (Synthroid) 25 mcg PO 0600 [facility] Last Admin: 10/06/17 05:30 Dose: 25 mcg Linezolid (Zyvox) 600 mg PO BID [facility] PRN Reason: Protocol Loratadine (Claritin) 10 mg PO [facility] Last Admin: 10/05/17 22:20 Dose: 10 mg Metoprolol Tartrate (Lopressor) 50 mg PO QPM [facility] Last Admin: 10/05/17 18:33 Dose: Not Given Montelukast Sodium (Singulair) 10 mg PO [facility] Last Admin: 10/05/17 22:21 Dose: 10 mg Morphine Sulfate (Morphine) 2 mg IVP Q5H PRN PRN Reason: Pain, severe (8-10) Last Admin: 10/06/17 13:20 Dose: 2 mg Multivitamins (Thera Tab) 1 tab PO DAILY [facility] Last Admin: 10/06/17 13:03 Dose: 1 tab Non-Formulary Medication (Bimatoprost [Lumigan]) 1 drp OU HS [facility] Last Admin: 10/05/17 22:23 Dose: Not Given Non-Formulary Medication (Diclofenac Sodium [Voltaren]) 1 appl TOP DAILY [facility] Last Admin: 10/06/17 10:52 Dose: Not Given Non-Formulary Medication (Salmeterol Xinafoate/Fluticaso [Advair Hfa 230-21]) 1 puff IH BID [facility] Last Admin: 10/06/17 10:54 Dose: Not Given Xzcse-2-Hqbw Ethyl Esters (Lovaza) 2 gm PO BID [facility] Last Admin: 10/06/17 13:02 Dose: 2 gm Ondansetron HCl (Zofran Inj) 4 mg IVP Q6H PRN PRN Reason: Nausea/Vomiting Oxycodone/Acetaminophen (Percocet 5/325 Mg Tab) 1 tab PO Q6H PRN PRN Reason: Pain, moderate (4-7) Stop: 10/08/17 12:50 Pantoprazole Sodium (Protonix Ec Tab) 40 mg PO DAILY [facility] Last Admin: 10/06/17 13:03 Dose: 40 mg Pregabalin (Lyrica) 50 mg PO [facility] Last Admin: 10/05/17 22:20 Dose: 50 mg Sevelamer HCl (Renagel) 1,600 mg PO TID [facility] Last Admin: 10/06/17 13:03 Dose: 1,600 mg Sodium Chloride ([place] Nasal [place]) 1 ml NS Q2H PRN PRN Reason: Nasal congestion Tamsulosin HCl (Flomax) 0.4 mg PO [facility] Last Admin: 10/05/17 22:20 Dose: 0.4 mg Ticagrelor (Brilinta) 90 mg PO BID [facility] Last Admin: 10/03/17 18:10 Dose: 90 mg - Labs Labs: 10/06/17 10:31 10/06/17 10:31 PT 19.3 SECONDS (9.4-12.5) H 10/02/17 21:20 INR 1.68 (0.93-1.08) H 10/02/17 21:20 APTT 32.0 Seconds (25.1-36.5) 10/02/17 21:20 Attending/Attestation - Attestation I have personally seen and examined this patient.: Yes I have fully participated in the care of the patient.: Yes I have reviewed all pertinent clinical information, including history, physical exam and plan: Yes
--- NOTE | 2017-10-06 15:11 | CP.PCM.PN ---
Subjective - Date & Time of Evaluation Date of Evaluation: 10/06/17 Time of Evaluation: 10:10 - Subjective Subjective: For dialysis today, no fevers. Objective - Vital Signs/Intake and Output Vital Signs (last 24 hours): Temp Pulse Resp BP Pulse Ox 97.7 F 91 H 20 108/41 L 100 10/06/17 06:00 10/06/17 06:03 10/06/17 06:00 10/06/17 06:00 10/06/17 06:00 - Medications Medications: Current Medications Albuterol/Ipratropium (Duoneb 3 Mg/0.5 Mg (3 Ml) Ud) 3 ml IH [id number] [facility] Last Admin: 10/06/17 07:30 Dose: 3 ml Aspirin (Ecotrin) 81 mg PO DAILY [facility] Last Admin: 10/05/17 10:13 Dose: 81 mg Atorvastatin Calcium (Lipitor) 40 mg PO DIN [facility] Last Admin: 10/05/17 18:32 Dose: 40 mg Calcium Acetate (Phoslo) 1,334 mg PO WM [facility] Last Admin: 10/06/17 10:53 Dose: Not Given Ergocalciferol (Drisdol 50,000 Intl Units Cap) 1 cap PO WED [facility] Last Admin: 10/04/17 12:48 Dose: 1 cap Fenofibrate (Tricor) 145 mg PO DAILY [facility] Last Admin: 10/05/17 10:13 Dose: Not Given Glipizide (Glucotrol) 10 mg PO DAILY [facility] Last Admin: 10/06/17 10:53 Dose: Not Given Hydralazine HCl (Apresoline) 25 mg PO BID [facility] Last Admin: 10/06/17 10:52 Dose: Not Given Meropenem 500 mg/ Sodium (Chloride) 50 mls @ 100 mls/hr IVPB Q12 [facility] PRN Reason: Protocol Stop: 10/12/17 14:01 Last Admin: 10/05/17 22:21 Dose: 100 mls/hr Dextrose (Dextrose 10% In Water) 500 mls @ 20 mls/hr IV .Q24H [facility] Last Admin: 10/04/17 13:22 Dose: 20 mls/hr Insulin Human NPH (Humulin N) 50 units SC QPM [facility] Insulin Human Regular (Humulin R Low) 0 units SC ACHS [facility] PRN Reason: Protocol Last Admin: 10/06/17 10:53 Dose: Not Given Levothyroxine Sodium (Synthroid) 25 mcg PO 0600 [facility] Last Admin: 10/06/17 05:30 Dose: 25 mcg Loratadine (Claritin) 10 mg PO [facility] Last Admin: 10/05/17 22:20 Dose: 10 mg Metoprolol Tartrate (Lopressor) 50 mg PO QPM [facility] Last Admin: 10/05/17 18:33 Dose: Not Given Montelukast Sodium (Singulair) 10 mg PO [facility] Last Admin: 10/05/17 22:21 Dose: 10 mg Morphine Sulfate (Morphine) 2 mg IVP Q5H PRN PRN Reason: Pain, severe (8-10) Last Admin: 10/05/17 20:29 Dose: 2 mg Multivitamins (Thera Tab) 1 tab PO DAILY [facility] Last Admin: 10/05/17 10:13 Dose: 1 tab Non-Formulary Medication (Bimatoprost [Lumigan]) 1 drp OU [facility] Last Admin: 10/05/17 22:23 Dose: Not Given Non-Formulary Medication (Diclofenac Sodium [Voltaren]) 1 appl TOP DAILY [facility] Last Admin: 10/06/17 10:52 Dose: Not Given Non-Formulary Medication (Salmeterol Xinafoate/Fluticaso [Advair Hfa 230-21]) 1 puff IH BID [facility] Last Admin: 10/06/17 10:54 Dose: Not Given Wfftk-1-Hwvj Ethyl Esters (Lovaza) 2 gm PO BID [facility] Last Admin: 10/05/17 18:32 Dose: 2 gm Ondansetron HCl (Zofran Inj) 4 mg IVP Q6H PRN PRN Reason: Nausea/Vomiting Oxycodone/Acetaminophen (Percocet 5/325 Mg Tab) 1 tab PO TID PRN PRN Reason: Pain, moderate (4-7) Stop: 10/08/17 14:01 Last Admin: 10/06/17 07:28 Dose: 1 tab Pantoprazole Sodium (Protonix Ec Tab) 40 mg PO DAILY [facility] Last Admin: 10/05/17 10:13 Dose: 40 mg Pregabalin (Lyrica) 50 mg PO [facility] Last Admin: 10/05/17 22:20 Dose: 50 mg Sevelamer HCl (Renagel) 1,600 mg PO TID [facility] Last Admin: 10/06/17 10:53 Dose: Not Given Sodium Chloride ([place] Nasal [place]) 1 ml NS Q2H PRN PRN Reason: Nasal congestion Tamsulosin HCl (Flomax) 0.4 mg PO HS [facility] Last Admin: 10/05/17 22:20 Dose: 0.4 mg Ticagrelor (Brilinta) 90 mg PO BID [facility] Last Admin: 10/03/17 18:10 Dose: 90 mg - Labs Labs: 10/06/17 10:31 10/06/17 10:31 PT 19.3 SECONDS (9.4-12.5) H 10/02/17 21:20 INR 1.68 (0.93-1.08) H 10/02/17 21:20 APTT 32.0 Seconds (25.1-36.5) 10/02/17 21:20 - Constitutional Appears: Chronically Ill - Head Exam Head Exam: NORMAL INSPECTION - ENT Exam ENT Exam: Mucous Membranes Moist - Neck Exam Neck Exam: absent: Meningismus - Respiratory Exam Respiratory Exam: Decreased Breath Sounds - Cardiovascular Exam Cardiovascular Exam: +S1, +S2 - GI/Abdominal Exam GI & Abdominal Exam: Soft. absent: Tenderness - Extremities Exam Additional comments: right foot with dressings in place Assessment and Plan - Assessment and Plan (Free Text) Plan: Assessment Right foot cellulitis with wet gangrene, R/O osteomyelitis S/P TMA POD #2 history of bilateral healthcare-associated pneumonia history of sepsis with gastroenteritis and C. diff. associated diarrhea ESRD on HD DM obesity CAD S/P PCI retinopathy history of pancreatitis Plan continue Zyvox and Merrem (based on previous cultures which included VRE) day 3 pending OR cultures and pathology will continue to monitor clinically
--- NOTE | 2017-10-06 17:03 | PN ---
DATE: 10/06/2017 PULMONARY PROGESS NOTE REFERRING PHYSICIAN: Diana Kessler MD. SUBJECTIVE: He is lying in the bed, head at 45 degrees. Night was unremarkable. Tolerated BiPAP well. No cough. No sputum production. No nausea. No vomiting. No diarrhea. Right foot has a dressing where some pain. OBJECTIVE: GENERAL: In no acute distress. VITAL SIGNS: Temperature is 99, heart rate is 67, respiratory rate is 20, blood pressure 174/51, pulse ox 100% on nasal cannula. HEENT: Moist mucous membrane. Crowded airway. Mallampati score is 4. NECK: Supple. No JVD. LUNGS: Have a scattered rhonchi. HEART: S1 and S2. ABDOMEN: Soft, nontender. No organomegaly. EXTREMITIES: No edema. Right foot has a dressing. NEUROLOGICAL: Awake and alert. Follows simple command. MEDICATIONS: He is on hydralazine, which is on hold; also getting Brilinta 90 mg twice a day; Claritin 10 mg daily; receiving vitamin D 50,000 units weekly; DuoNeb every 6 hours; Ecotrin 81 mg daily; Flomax 0.4 mg daily; glipizide 10 mg daily; insulin coverage; atorvastatin 40 mg daily; metoprolol tartrate 50 mg daily; Lovaza 2 g twice a day; Lyrica 50 mg at bedtime; meropenem 500 mg every 12 hours; morphine 2 mg IV every 5 hours p.r.n.; nasal saline every 2 hours p.r.n.; Percocet 5/325 one tab every 6 hours p.r.n.; PhosLo with meals; Protonix 40 mg daily; Renagel three times a day; also on Advair 1 puff twice a day; Singulair 10 mg daily; Synthroid 25 mcg daily; multivitamins daily; Tricor 145 mg daily; Zyvox 600 mg twice a day; Zofran p.r.n. basis. LABORATORY DATA: Shows hemoglobin 8.5, hematocrit 25.7, WBC 14, platelet count is 188. INR 1.68. Sodium 136, potassium 4.8, chloride 97, bicarbonate 26, BUN 36, creatinine 6.2, glucose 72, calcium is 8.6. IMPRESSION AND PLAN: Chronic obstructive lung disease, obstructive sleep apnea syndrome, cardiomyopathy, coronary artery disease, pulmonary hypertension, diabetes, hypertension, peripheral vascular disease, status post nonhealing right foot ulcer requiring partial amputation, peripheral neuropathy, legally blind. We will continue encourage bilevel positive airway pressure use. Keep head at 45 degrees. Gastric prophylaxis, deep venous thrombosis prophylaxis. Antibiotics as per Infectious Diseases. Podiatry followup. Elevate right lower extremity. Pain management. Thank you and we will follow with you. Jarred Escalera MD
--- NOTE | 2017-10-06 17:07 | PN ---
DATE: 10/06/2017 SUBJECTIVE: The patient is seen sitting in bed. He is awake, he is alert. He complains of pain in his foot. He had stable dialysis today. He denies any nausea or vomiting. He received 3 units of blood in total yesterday. PHYSICAL EXAMINATION: GENERAL: Middle-aged male lying in bed. VITAL SIGNS: Blood pressure 174/51, heart rate 67, respiratory rate 18, temperature 98.7. HEENT: Normocephalic, atraumatic, positive pallor. NECK: Supple, no JVD. LUNGS: Bilateral equal air entry, bilateral equal expansion. CARDIAC: S1 and S2, regular rate and rhythm, no murmur, no rub. ABDOMEN: Obese, distended, soft, nontender, bowel sounds present. EXTREMITIES: Dressing of the right foot. INTAKE AND OUTPUT: Not charted. LABORATORY DATA: WBC 14, hemoglobin 8.5, hematocrit 25.7, platelets 188. Sodium 136, potassium 4.8, chloride 97, CO2 of 26, BUN 36, creatinine 6.2, glucose 72, calcium 8.6. CURRENT MEDICATIONS: Hydralazine 25 b.i.d., Brilinta, Claritin, Drisdol, DuoNeb, Ecotrin, Flomax, Glucotrol, insulin, Lipitor, Lyrica, meropenem, Percocet, PhosLo, morphine sulfate, Protonix, Renagel, Synthroid, multivitamin, and Zyvox. ASSESSMENT: 1. Stable dialysis today. 2. Severe anemia, chronic kidney disease plus blood loss. 3. Status post transmetatarsal amputation, postop day #2. 4. Insulin-dependent diabetes mellitus. 5. Hypertension. 6. End-stage renal disease. 7. Pain management. PLAN: 1. Stable dialysis. 2. Monitor H and H. 3. Continue antibiotics. 4. Wound care as per Dr. Villanueva. 5. May need further blood transfusion. 6. Continue phosphate binders. 7. Increase Percocet to every 6 hours p.r.n.. Eva Malcolm MD
[2017-10-06] MEDS: Insulin Human NPH 1 UNITS/0.01 ML SC SCH (18:40)
--- NOTE | 2017-10-06 19:40 | PN ---
DATE: 10/06/2017 SUBJECTIVE: The patient was seen and examined on the bedside on 10/06/2017. Still complaining about pain in the foot. Getting morphine and Percocet. Night was unremarkable. Tolerated BiPAP well. No cough. No shortness of breath. No sputum production. No diarrhea. Right foot has dressing, there was some bleeding. No hematuria or hematochezia. PHYSICAL EXAMINATION: VITAL SIGNS: Temperature 99, heart rate 67, respiratory rate 20, blood pressure 117/51, pulse oximetry 100% on nasal cannula. HEENT: Head normocephalic, atraumatic. Eyes PERRLA. Extraocular muscles intact. Conjunctivae clear. Nose patent. Mucous membrane moist. NECK: Supple. No carotid bruit. No JVD or thyromegaly. CHEST: Bilaterally symmetrical. HEART: S1 and S2 positive. LUNGS: Clear to auscultation. ABDOMEN: Soft. Bowel sounds present. No organomegaly. EXTREMITIES: No edema, no cyanosis except that right foot has dressing. NEUROLOGICAL: Patient is awake, alert. Follows simple commands. MEDICATIONS: Hydralazine, Brilinta, Claritin, DuoNeb, Ecotrin, Flomax, glipizide, metoprolol, Lovaza, Lyrica, meropenem, morphine, Percocet, nasal saline, PhosLo, Renagel, Zofran, Zyvox, TriCor. LABORATORY DATA: Hemoglobin 8.5, hematocrit 25.7, white blood cells 14, platelets 188. Sodium 136, potassium 4.8, creatinine 6.2, calcium 8.6. ASSESSMENT AND PLAN: Mr. Jason Miramontes, 52-year-old male with multiple medical problems; asthma; obstructive sleep apnea syndrome; chronic obstructive lung disease; cardiomyopathy; coronary artery disease; pulmonary hypertension; diabetes mellitus; hypertension; peripheral vascular disease; diabetic nephropathy, he is on hemodialysis three times a week; diabetic retinopathy; diabetic neuropathy. Patient is encouraged to use bilevel positive airway pressure. Gastric prophylaxis, deep vein thrombosis prophylaxis. Antibiotics as per Infectious Disease. Elevate right lower extremity. Appreciated Pulmonary, Nephrology, Infectious Disease input. Podiatry is on the case. Getting pain medications and antibiotics as per Infectious Disease. We will follow up. Diana Kessler MD [facility] # [id number]
[2017-10-06] MEDS: BIMATOPROST OU SCH (22:18)
[2017-10-07] MEDS: Albuterol-Ipratrop 3 mg / 0.5 (3 ml) UD IH SCH ×5 (01:10→19:29)
[2017-10-07] MEDS: Levothyroxine 25 MCG TAB PO SCH (05:34)
[2017-10-07] MEDS: Oxycodone/Acetaminophen 5/325 mg Tab PO PRN (06:00)
[2017-10-07 07:01] LABS: HEMOGLOBIN 7.6 g/dL (14.0-18.0); MEAN CELL VOLUME 88.6 fl (80.0-105.0); MEAN CORPUSCULAR HGB CONC 31.7 g/dl (31.0-37.0); MEAN PLATELET VOLUME 11.2 fl (7.0-11.0); RBC 2.71 10^6/uL (3.5-6.1); RED CELL DISTRIBUTION WIDTH 18.9 % (11.5-14.5); WHITE BLOOD COUNT 8.5 10^3/ul (4.5-11.0)
--- NOTE | 2017-10-07 07:13 | CP.PCM.PN ---
Subjective - Date & Time of Evaluation Date of Evaluation: 10/07/17 Time of Evaluation: 06:40 - Subjective Subjective: Awake, alert, lying in bed, no distress Reason for consultation and follow up:Cardiac evaluation for questionable history of [place] on pacemaker [place] [facility] [place] for right toe ulcer/gangrene. History of peripheral arterial disease, coronary artery disease with multiple stents, sick sinus syndrome with PPM, history of fall with subdural hematoma and was on Brilinta at that time.(held off Brilinta for 2 weeks then resumed due to recent stent placement) Seen and examined by me and Dr. Erickson Objective - Vital Signs/Intake and Output Vital Signs (last 24 hours): Temp Pulse Resp BP Pulse Ox 98.2 F 64 18 109/51 L 95 10/06/17 22:34 10/07/17 02:20 10/06/17 22:34 10/07/17 02:20 10/06/17 22:34 - Medications Medications: Current Medications Albuterol/Ipratropium (Duoneb 3 Mg/0.5 Mg (3 Ml) Ud) 3 ml IH [id number] [facility] Last Admin: 10/07/17 01:10 Dose: 3 ml Aspirin (Ecotrin) 81 mg PO DAILY [facility] Last Admin: 10/06/17 13:19 Dose: 81 mg Atorvastatin Calcium (Lipitor) 40 mg PO DIN [facility] Last Admin: 10/06/17 18:05 Dose: 40 mg Calcium Acetate (Phoslo) 1,334 mg PO WM [facility] Last Admin: 10/06/17 18:05 Dose: 1,334 mg Ergocalciferol (Drisdol 50,000 Intl Units Cap) 1 cap PO WED [facility] Last Admin: 10/04/17 12:48 Dose: 1 cap Fenofibrate (Tricor) 145 mg PO DAILY [facility] Glipizide (Glucotrol) 10 mg PO DAILY [facility] Last Admin: 10/06/17 10:53 Dose: Not Given Hydralazine HCl (Apresoline) 25 mg PO BID [facility] Last Admin: 10/06/17 18:11 Dose: Not Given Meropenem 500 mg/ Sodium (Chloride) 50 mls @ 100 mls/hr IVPB Q12 [facility] PRN Reason: Protocol Stop: 10/12/17 14:01 Last Admin: 10/06/17 22:18 Dose: 100 mls/hr Dextrose (Dextrose 10% In Water) 500 mls @ 20 mls/hr IV .Q24H [facility] Last Admin: 10/04/17 13:22 Dose: 20 mls/hr Insulin Human NPH (Humulin N) 50 units SC QPM [facility] Last Admin: 10/06/17 18:40 Dose: Not Given Insulin Human Regular (Humulin R Low) 0 units SC ACHS [facility] PRN Reason: Protocol Last Admin: 10/06/17 22:20 Dose: Not Given Levothyroxine Sodium (Synthroid) 25 mcg PO 0600 [facility] Last Admin: 10/07/17 05:34 Dose: 25 mcg Linezolid (Zyvox) 600 mg PO BID [facility] PRN Reason: Protocol Last Admin: 10/06/17 18:05 Dose: 600 mg Loratadine (Claritin) 10 mg PO [facility] Last Admin: 10/06/17 22:18 Dose: 10 mg Metoprolol Tartrate (Lopressor) 50 mg PO QPM [facility] Last Admin: 10/06/17 18:10 Dose: Not Given Montelukast Sodium (Singulair) 10 mg PO [facility] Last Admin: 10/06/17 22:18 Dose: 10 mg Morphine Sulfate (Morphine) 2 mg IVP Q5H PRN PRN Reason: Pain, severe (8-10) Last Admin: 10/06/17 13:20 Dose: 2 mg Multivitamins (Thera Tab) 1 tab PO DAILY [facility] Last Admin: 10/06/17 13:03 Dose: 1 tab Non-Formulary Medication (Bimatoprost [Lumigan]) 1 drp OU [facility] Last Admin: 10/06/17 22:18 Dose: Not Given Non-Formulary Medication (Diclofenac Sodium [Voltaren]) 1 appl TOP DAILY [facility] Last Admin: 10/06/17 10:52 Dose: Not Given Non-Formulary Medication (Salmeterol Xinafoate/Fluticaso [Advair Hfa 230-21]) 1 puff IH BID [facility] Last Admin: 10/06/17 18:41 Dose: Not Given Ziyzg-4-Xkun Ethyl Esters (Lovaza) 2 gm PO BID [facility] Last Admin: 10/06/17 18:05 Dose: 2 gm Ondansetron HCl (Zofran Inj) 4 mg IVP Q6H PRN PRN Reason: Nausea/Vomiting Oxycodone/Acetaminophen (Percocet 5/325 Mg Tab) 1 tab PO Q6H PRN PRN Reason: Pain, moderate (4-7) Stop: 10/08/17 12:50 Last Admin: 10/07/17 06:00 Dose: 1 tab Pantoprazole Sodium (Protonix Ec Tab) 40 mg PO DAILY [facility] Last Admin: 10/06/17 13:03 Dose: 40 mg Pregabalin (Lyrica) 50 mg PO [facility] Last Admin: 10/06/17 22:18 Dose: 50 mg Sevelamer HCl (Renagel) 1,600 mg PO TID [facility] Last Admin: 10/06/17 18:05 Dose: 1,600 mg Sodium Chloride ([place] Nasal [place]) 1 ml NS Q2H PRN PRN Reason: Nasal congestion Tamsulosin HCl (Flomax) 0.4 mg PO [facility] Last Admin: 10/06/17 22:18 Dose: 0.4 mg Ticagrelor (Brilinta) 90 mg PO BID [facility] Last Admin: 10/03/17 18:10 Dose: 90 mg - Labs Labs: 10/07/17 06:30 10/06/17 10:31 PT 19.3 SECONDS (9.4-12.5) H 10/02/17 21:20 INR 1.68 (0.93-1.08) H 10/02/17 21:20 APTT 32.0 Seconds (25.1-36.5) 10/02/17 21:20 - Constitutional Appears: No Acute Distress - Head Exam Head Exam: NORMOCEPHALIC - Eye Exam Eye Exam: Normal appearance - ENT Exam ENT Exam: Mucous Membranes Moist - Respiratory Exam Respiratory Exam: Decreased Breath Sounds, Clear to Ausculation Bilateral, NORMAL BREATHING PATTERN - Cardiovascular Exam Cardiovascular Exam: +S1, +S2 Additional comments: PPM - GI/Abdominal Exam GI & Abdominal Exam: Soft, Normal Bowel Sounds - Exam Additional comments: hemodialysis 3x a week - Extremities Exam Additional comments: right foot pearl wrapped complaining tolerable pain left arm AV shunt positive bruit - Neurological Exam Neurological Exam: Alert, Awake, Oriented x3 - Psychiatric Exam Psychiatric exam: Normal Affect, Normal Mood - Skin Skin Exam: Dry, Warm Assessment and Plan - Assessment and Plan (Free Text) Assessment: A 52 year old male who was admitted due to right toe ulcer/gangrene.Consult was called for evaluation for questionable history of vegetation on pacemaker [place] [facility] [place] History of peripheral arterial disease, coronary artery disease with multiple stents, sick sinus syndrome with PPM, history of fall with subdural hematoma and was on Brilinta at that time.(held off Brilinta for 2 weeks then resumed due to recent stent placement),resistant to Plavix. ESRD on hemodialysis, diabetes, diabetic neuropathy, diabetic nephropathy, retinopathy, COPD, history of pancreatitis, hypertriglyceridemia, CVA,spinal stenosis. [place] [facility] [place] am[place] of right leg but family refused and discharged. ECHO done 10/03/17-LVEF 60-65%, Moderate to severe AR, moderate aortic stenosis, moderate MR, moderate to severe TR Echogenic mobile structure attached to aortic valve leaflet, with same consistency of valve, can not rule out vegetation versus degenerative changes, will correlate clinically with blood cultures. Post right foot transmetatarsal amputation 10/04/17. Transfused 3 units PRBC for low hemoglobin.10/05/17. Plan: On contact isolation Post transfusion hemoglobin 7.4, will monitor, no apparent bleeding site, Will order urine hemosedirin, blood haptoglobulin and LDH to rule out for possible red cell destruction Complaining of pain on right foot, PRN medication given Cardiac status stable Heart rate and blood pressure controlled Awaiting blood culture results On IV antibiotics, ID on consult Continue current treatment Continue current medications Fall precaution Physical therapy Will follow up Plan and treatment discussed with Dr. Erickson
[2017-10-07 07:56] LABS: CALCIUM 8.2 mg/dL (8.4-10.5)
[2017-10-07] MEDS: Insulin Reg-LOW-Coverage SC SCH ×4 (08:35→22:35)
[2017-10-07] MEDS: Morphine 2 mg/ml ISec IVP PRN ×3 (08:53→20:03)
--- NOTE | 2017-10-07 09:18 | CP.PCM.PN ---
<Michell Restrepo - Last Filed: 10/07/17 16:43> Subjective - Date & Time of Evaluation Date of Evaluation: 10/07/17 Time of Evaluation: 09:11 - Subjective Subjective: Podiatry Progress Note- Dr Quevedo 52 y/o male 3 days s/p right transmetatarsal amputation with debridement of bone and all nonviable soft tissue secondary to right foot wet gangrene secondary to DM and PAD. Patient is seen resting comfortably in bed, in NAD, and AA0x3. Patient reports pain to the right foot that comes and goes. Patient has been experiencing mild thigh pain when elevating the lower extremity. Admits to Sleeping well. Dressing is clean, dry, and intact without strike- through. Denies of any dizziness. Denies of nausea, fever, shortness of breath , chest pain or chills. Objective - Vital Signs/Intake and Output Vital Signs (last 24 hours): Temp Pulse Resp BP Pulse Ox 98.5 F 63 18 105/43 L 97 10/07/17 08:33 10/07/17 08:33 10/07/17 08:33 10/07/17 08:33 10/07/17 08:33 - Medications Medications: Current Medications Albuterol/Ipratropium (Duoneb 3 Mg/0.5 Mg (3 Ml) Ud) 3 ml IH [id number] [facility] Last Admin: 10/07/17 08:57 Dose: 3 ml Aspirin (Ecotrin) 81 mg PO DAILY [facility] Last Admin: 10/06/17 13:19 Dose: 81 mg Atorvastatin Calcium (Lipitor) 40 mg PO DIN [facility] Last Admin: 10/06/17 18:05 Dose: 40 mg Calcium Acetate (Phoslo) 1,334 mg PO WM [facility] Last Admin: 10/07/17 08:53 Dose: 1,334 mg Ergocalciferol (Drisdol 50,000 Intl Units Cap) 1 cap PO WED [facility] Last Admin: 10/04/17 12:48 Dose: 1 cap Fenofibrate (Tricor) 145 mg PO DAILY [facility] Glipizide (Glucotrol) 10 mg PO DAILY [facility] Last Admin: 10/06/17 10:53 Dose: Not Given Hydralazine HCl (Apresoline) 25 mg PO BID [facility] Last Admin: 10/06/17 18:11 Dose: Not Given Meropenem 500 mg/ Sodium (Chloride) 50 mls @ 100 mls/hr IVPB Q12 [facility] PRN Reason: Protocol Stop: 10/12/17 14:01 Last Admin: 10/06/17 22:18 Dose: 100 mls/hr Dextrose (Dextrose 10% In Water) 500 mls @ 20 mls/hr IV .Q24H [facility] Last Admin: 10/04/17 13:22 Dose: 20 mls/hr Insulin Human NPH (Humulin N) 50 units SC QPM [facility] Last Admin: 10/06/17 18:40 Dose: Not Given Insulin Human Regular (Humulin R Low) 0 units SC ACHS [facility] PRN Reason: Protocol Last Admin: 10/07/17 08:35 Dose: Not Given Levothyroxine Sodium (Synthroid) 25 mcg PO 0600 [facility] Last Admin: 10/07/17 05:34 Dose: 25 mcg Linezolid (Zyvox) 600 mg PO BID [facility] PRN Reason: Protocol Last Admin: 10/06/17 18:05 Dose: 600 mg Loratadine (Claritin) 10 mg PO [facility] Last Admin: 10/06/17 22:18 Dose: 10 mg Metoprolol Tartrate (Lopressor) 50 mg PO QPM [facility] Last Admin: 10/06/17 18:10 Dose: Not Given Montelukast Sodium (Singulair) 10 mg PO [facility] Last Admin: 10/06/17 22:18 Dose: 10 mg Morphine Sulfate (Morphine) 2 mg IVP Q5H PRN PRN Reason: Pain, severe (8-10) Last Admin: 10/07/17 08:53 Dose: 2 mg Multivitamins (Thera Tab) 1 tab PO DAILY [facility] Last Admin: 10/06/17 13:03 Dose: 1 tab Non-Formulary Medication (Bimatoprost [Lumigan]) 1 drp OU HS [facility] Last Admin: 10/06/17 22:18 Dose: Not Given Non-Formulary Medication (Diclofenac Sodium [Voltaren]) 1 appl TOP DAILY [facility] Last Admin: 10/06/17 10:52 Dose: Not Given Non-Formulary Medication (Salmeterol Xinafoate/Fluticaso [Advair Hfa 230-21]) 1 puff IH BID [facility] Last Admin: 10/06/17 18:41 Dose: Not Given [id number]-[id number] Ethyl Esters (Lovaza) 2 gm PO BID [facility] Last Admin: 10/06/17 18:05 Dose: 2 gm Ondansetron HCl (Zofran Inj) 4 mg IVP Q6H PRN PRN Reason: Nausea/Vomiting Oxycodone/Acetaminophen (Percocet 5/325 Mg Tab) 1 tab PO Q6H PRN PRN Reason: Pain, moderate (4-7) Stop: 10/08/17 12:50 Last Admin: 10/07/17 06:00 Dose: 1 tab Pantoprazole Sodium (Protonix Ec Tab) 40 mg PO DAILY [facility] Last Admin: 10/06/17 13:03 Dose: 40 mg Pregabalin (Lyrica) 50 mg PO [facility] Last Admin: 10/06/17 22:18 Dose: 50 mg Sevelamer HCl (Renagel) 1,600 mg PO TID [facility] Last Admin: 10/06/17 18:05 Dose: 1,600 mg Sodium Chloride ([place] Nasal [place]) 1 ml NS Q2H PRN PRN Reason: Nasal congestion Tamsulosin HCl (Flomax) 0.4 mg PO [facility] Last Admin: 10/06/17 22:18 Dose: 0.4 mg Ticagrelor (Brilinta) 90 mg PO BID [facility] Last Admin: 10/03/17 18:10 Dose: 90 mg - Labs Labs: 10/07/17 06:30 10/07/17 06:30 PT 19.3 SECONDS (9.4-12.5) H 10/02/17 21:20 INR 1.68 (0.93-1.08) H 10/02/17 21:20 APTT 32.0 Seconds (25.1-36.5) 10/02/17 21:20 - Constitutional Appears: Well, Non-toxic - Head Exam Head Exam: ATRAUMATIC, NORMOCEPHALIC - Extremities Exam Additional comments: Dressing is seen to be dry, clean and intact. No strikethrough is noted to the right lower extremity - Neurological Exam Neurological Exam: Alert, Awake, Oriented x3 - Psychiatric Exam Psychiatric exam: Normal Affect, Normal Mood Assessment and Plan - Assessment and Plan (Free Text) Assessment: 52 y/o male 2 days s/p right transmetatarsal amputation with debridement of bone and all nonviable soft tissue secondary to right foot wet gangrene secondary to DM and PAD. Plan: Patient seen and evaluated along with Dr. Quevedo All questions/concerns addressed Labs, vitals, and charts reviewed. WBC=8.5, H/H 7.6 Right foot X-rays s/p right foot surgery. Impression: There has been amputation at the level of the proximal metatarsals 1 through 5. Surgical clips are seen. There is air in the soft tissues. - Packing of idoform to large plantar ulceration may micmick air in soft tissues Dressing to be left dry, clean and intact. Will hold off Wound VAC until possibility Monday. Brillinta held. Will change dressing on Monday 10/09 Do not WB to the right lower extremity SCDs while in bed c/w Multipodus boots. Patient to wear at all times while in bed. Physical therapy- evaluate and treat. Patient to be NWB to right lower extremity with assisting device. Patient reports having scooter in which patient will bring in from home. Intraop wound culture right foot- pending Intraop specimen right foot- pending c/w iv abx per ID Abx treatment for soft tissue infection per ID; intraop bony quality WNL Recommends TCU to work with physical therapy and abx treatment Will continue to closely follow while in house Upon discharge will follow up with Dr. Villanueva in wound care clinic <Adria Quevedo - Last Filed: 10/10/17 11:16> Objective - Vital Signs/Intake and Output Vital Signs (last 24 hours): Temp Pulse Resp BP Pulse Ox 98 F 65 18 109/45 L 99 10/10/17 06:00 10/10/17 09:40 10/10/17 06:00 10/10/17 09:40 10/10/17 06:00 Intake and Output: 10/10/17 10/10/17 06:59 18:59 Intake Total 240 Balance 240 - Medications Medications: Current Medications Albuterol/Ipratropium (Duoneb 3 Mg/0.5 Mg (3 Ml) Ud) 3 ml IH [id number] [facility] Last Admin: 10/10/17 07:29 Dose: 3 ml Aspirin (Ecotrin) 81 mg PO DAILY [facility] Last Admin: 10/10/17 09:40 Dose: 81 mg Atorvastatin Calcium (Lipitor) 40 mg PO DIN [facility] Last Admin: 10/09/17 16:34 Dose: 40 mg Calcium Acetate (Phoslo) 1,334 mg PO WM [facility] Last Admin: 10/10/17 09:40 Dose: 1,334 mg Diphenhydramine HCl (Benadryl) 25 mg PO HS PRN PRN Reason: Insomnia Last Admin: 10/09/17 22:27 Dose: 25 mg Ergocalciferol (Drisdol 50,000 Intl Units Cap) 1 cap PO WED [facility] Last Admin: 10/04/17 12:48 Dose: 1 cap Fenofibrate (Tricor) 145 mg PO DAILY [facility] Last Admin: 10/10/17 09:41 Dose: 145 mg Glipizide (Glucotrol) 10 mg PO DAILY [facility] Last Admin: 10/10/17 09:41 Dose: Not Given Hydralazine HCl (Apresoline) 25 mg PO BID [facility] Last Admin: 10/10/17 09:40 Dose: Not Given Meropenem 500 mg/ Sodium (Chloride) 50 mls @ 100 mls/hr IVPB Q12 [facility] PRN Reason: Protocol Stop: 10/12/17 14:01 Last Admin: 10/10/17 09:42 Dose: 100 mls/hr Dextrose (Dextrose 10% In Water) 500 mls @ 20 mls/hr IV .Q24H [facility] Last Admin: 10/04/17 13:22 Dose: 20 mls/hr Insulin Human NPH (Humulin N) 50 units SC QPM [facility] Last Admin: 10/09/17 17:42 Dose: Not Given Insulin Human Regular (Humulin R Low) 0 units SC ACHS [facility] PRN Reason: Protocol Last Admin: 10/10/17 11:15 Dose: Not Given Lactulose (Enulose) 30 gm PO DAILY [facility] Last Admin: 10/10/17 09:41 Dose: Not Given Levothyroxine Sodium (Synthroid) 25 mcg PO 0600 [facility] Last Admin: 10/10/17 05:20 Dose: 25 mcg Linezolid (Zyvox) 600 mg PO BID [facility] PRN Reason: Protocol Last Admin: 10/10/17 09:40 Dose: 600 mg Loratadine (Claritin) 10 mg PO HS [facility] Last Admin: 10/09/17 21:22 Dose: 10 mg Metoprolol Tartrate (Lopressor) 50 mg PO QPM [facility] Last Admin: 10/09/17 17:45 Dose: 50 mg Montelukast Sodium (Singulair) 10 mg PO [facility] Last Admin: 10/09/17 21:22 Dose: 10 mg Morphine Sulfate (Morphine) 2 mg IVP Q5H PRN PRN Reason: Pain, severe (8-10) Multivitamins (Thera Tab) 1 tab PO DAILY [facility] Last Admin: 10/10/17 09:40 Dose: 1 tab Non-Formulary Medication (Bimatoprost [Lumigan]) 1 drp OU [facility] Last Admin: 10/08/17 21:13 Dose: Not Given Non-Formulary Medication (Diclofenac Sodium [Voltaren]) 1 appl TOP DAILY [facility] Last Admin: 10/10/17 09:41 Dose: Not Given Non-Formulary Medication (Salmeterol Xinafoate/Fluticaso [Advair Hfa 230-21]) 1 puff IH BID [facility] Last Admin: 10/10/17 09:43 Dose: Not Given [id number] Ethyl Esters (Lovaza) 2 gm PO BID [facility] Last Admin: 10/10/17 09:40 Dose: 2 gm Ondansetron HCl (Zofran Inj) 4 mg IVP Q6H PRN PRN Reason: Nausea/Vomiting Last Admin: 10/09/17 07:47 Dose: 4 mg Oxycodone/Acetaminophen (Percocet 10/325 Mg Tab) 1 tab PO Q6H PRN PRN Reason: Pain, moderate (4-7) Last Admin: 10/10/17 09:54 Dose: 1 tab Pantoprazole Sodium (Protonix Ec Tab) 40 mg PO 0600 [facility] Last Admin: 10/10/17 05:20 Dose: 40 mg Pregabalin (Lyrica) 50 mg PO [facility] Last Admin: 10/09/17 21:22 Dose: 50 mg Sevelamer HCl (Renagel) 1,600 mg PO [facility] Last Admin: 10/10/17 09:41 Dose: 1,600 mg Sodium Chloride ([place] Nasal [place]) 1 ml NS Q2H PRN PRN Reason: Nasal congestion Last Admin: 10/07/17 12:57 Dose: 1 spr Tamsulosin HCl (Flomax) 0.4 mg PO [facility] Last Admin: 10/09/17 21:22 Dose: 0.4 mg Ticagrelor (Brilinta) 90 mg PO BID [facility] Last Admin: 10/10/17 09:40 Dose: 90 mg - Labs Labs: 10/09/17 09:00 10/09/17 09:00 PT 19.3 SECONDS (9.4-12.5) H 10/02/17 21:20 INR 1.68 (0.93-1.08) H 10/02/17 21:20 APTT 32.0 Seconds (25.1-36.5) 10/02/17 21:20 Attending/Attestation - Attestation I have personally seen and examined this patient.: Yes I have fully participated in the care of the patient.: Yes I have reviewed all pertinent clinical information, including history, physical exam and plan: Yes
--- NOTE | 2017-10-07 10:41 | CP.PCM.PN ---
Subjective - Date & Time of Evaluation Date of Evaluation: 10/07/17 Time of Evaluation: 09:30 - Subjective Subjective: c/o pain R foot, otherwise NAD Objective - Vital Signs/Intake and Output Vital Signs (last 24 hours): Temp Pulse Resp BP Pulse Ox 98.5 F 63 18 105/43 L 97 10/07/17 08:33 10/07/17 08:33 10/07/17 08:33 10/07/17 08:33 10/07/17 08:33 - Medications Medications: Current Medications Albuterol/Ipratropium (Duoneb 3 Mg/0.5 Mg (3 Ml) Ud) 3 ml IH [id number] [facility] Last Admin: 10/07/17 08:57 Dose: 3 ml Aspirin (Ecotrin) 81 mg PO DAILY [facility] Last Admin: 10/06/17 13:19 Dose: 81 mg Atorvastatin Calcium (Lipitor) 40 mg PO DIN [facility] Last Admin: 10/06/17 18:05 Dose: 40 mg Calcium Acetate (Phoslo) 1,334 mg PO WM [facility] Last Admin: 10/07/17 08:53 Dose: 1,334 mg Darbepoetin Jimmie (Aranesp) 100 mcg IVP ONCE ONE Stop: 10/09/17 06:01 Ergocalciferol (Drisdol 50,000 Intl Units Cap) 1 cap PO WED [facility] Last Admin: 10/04/17 12:48 Dose: 1 cap Fenofibrate (Tricor) 145 mg PO DAILY [facility] Glipizide (Glucotrol) 10 mg PO DAILY [facility] Last Admin: 10/06/17 10:53 Dose: Not Given Hydralazine HCl (Apresoline) 25 mg PO BID [facility] Last Admin: 10/06/17 18:11 Dose: Not Given Meropenem 500 mg/ Sodium (Chloride) 50 mls @ 100 mls/hr IVPB Q12 [facility] PRN Reason: Protocol Stop: 10/12/17 14:01 Last Admin: 10/06/17 22:18 Dose: 100 mls/hr Dextrose (Dextrose 10% In Water) 500 mls @ 20 mls/hr IV .Q24H [facility] Last Admin: 10/04/17 13:22 Dose: 20 mls/hr Insulin Human NPH (Humulin N) 50 units SC QPM [facility] Last Admin: 07/20/18 18:40 Dose: Not Given Insulin Human Regular (Humulin R Low) 0 units SC [facility] PRN Reason: Protocol Last Admin: 10/07/17 08:35 Dose: Not Given Levothyroxine Sodium (Synthroid) 25 mcg PO 0600 [facility] Last Admin: 10/07/17 05:34 Dose: 25 mcg Linezolid (Zyvox) 600 mg PO BID [facility] PRN Reason: Protocol Last Admin: 10/06/17 18:05 Dose: 600 mg Loratadine (Claritin) 10 mg PO HS [facility] Last Admin: 10/06/17 22:18 Dose: 10 mg Metoprolol Tartrate (Lopressor) 50 mg PO QPM [facility] Last Admin: 10/06/17 18:10 Dose: Not Given Montelukast Sodium (Singulair) [address] [facility] Last Admin: 10/06/17 22:18 Dose: 10 mg Morphine Sulfate (Morphine) 2 mg IVP Q5H PRN PRN Reason: Pain, severe (8-10) Last Admin: 10/07/17 08:53 Dose: 2 mg Multivitamins (Thera Tab) 1 tab PO DAILY [facility] Last Admin: 10/06/17 13:03 Dose: 1 tab Non-Formulary Medication (Bimatoprost [Lumigan]) 1 drp OU HS [facility] Last Admin: 10/06/17 22:18 Dose: Not Given Non-Formulary Medication (Diclofenac Sodium [Voltaren]) 1 appl TOP DAILY [facility] Last Admin: 10/06/17 10:52 Dose: Not Given Non-Formulary Medication (Salmeterol Xinafoate/Fluticaso [Advair Hfa 230-21]) 1 puff IH BID [facility] Last Admin: 10/06/17 18:41 Dose: Not Given [id number] Ethyl Esters (Lovaza) 2 gm PO BID [facility] Last Admin: 10/06/17 18:05 Dose: 2 gm Ondansetron HCl (Zofran Inj) 4 mg IVP Q6H PRN PRN Reason: Nausea/Vomiting Oxycodone/Acetaminophen (Percocet 10/325 Mg Tab) 1 tab PO Q6H PRN PRN Reason: Pain, moderate (4-7) Pantoprazole Sodium (Protonix Ec Tab) 40 mg PO DAILY [facility] Last Admin: 10/06/17 13:03 Dose: 40 mg Pregabalin (Lyrica) 50 mg PO HS [facility] Last Admin: 10/06/17 22:18 Dose: 50 mg Sevelamer HCl (Renagel) 1,600 mg PO TID [facility] Last Admin: 10/06/17 18:05 Dose: 1,600 mg Sodium Chloride ([place] Nasal [place]) 1 ml NS Q2H PRN PRN Reason: Nasal congestion Tamsulosin HCl (Flomax) 0.4 mg PO HS [facility] Last Admin: 10/06/17 22:18 Dose: 0.4 mg Ticagrelor (Brilinta) 90 mg PO BID [facility] Last Admin: 10/03/17 18:10 Dose: 90 mg - Labs Labs: 10/07/17 06:30 10/07/17 06:30 PT 19.3 SECONDS (9.4-12.5) H 10/02/17 21:20 INR 1.68 (0.93-1.08) H 10/02/17 21:20 APTT 32.0 Seconds (25.1-36.5) 10/02/17 21:20 - Respiratory Exam Respiratory Exam: Clear to Ausculation Bilateral, NORMAL BREATHING PATTERN - Cardiovascular Exam Cardiovascular Exam: REGULAR RHYTHM - GI/Abdominal Exam GI & Abdominal Exam: Soft, Normal Bowel Sounds - Extremities Exam Additional comments: R foot dressing claen and intact Assessment and Plan (1) Diabetic infection of right foot Status: Acute (2) ESRD (end stage renal disease) on dialysis Status: Chronic (3) Diabetes Status: Chronic - Assessment and Plan (Free Text) Plan: s/p transtarsal amput R foot, continue post-op care, analgesics
[2017-10-07] MEDS: DICLOFENAC SODIUM APPL TOP SCH (10:58)
[2017-10-07] MEDS: Meropenem 500 MG in Sodium Chloride 0.9% 50 ML IVPB SCH ×2 (11:00→22:14)
[2017-10-07] MEDS: Omega-3-Acid Ethyl Esters 1 GM Cap PO SCH ×2 (11:00→18:10)
[2017-10-07] MEDS: Multivitamin Therapeutic Tab PO SCH (11:01)
[2017-10-07] MEDS: Pantoprazole 40 mg EC Tab PO SCH (11:07)
[2017-10-07] MEDS: SALMETEROL XINAFOATE IH SCH ×2 (11:09→18:12)
[2017-10-07] MEDS: FLUTICASO IH SCH ×2 (11:09→18:12)
--- NOTE | 2017-10-07 12:14 | PN ---
DATE: 10/07/2017 SUBJECTIVE: The patient is currently seen on 5R lying comfortable in bed. He is 3 days status post a right TMA. He remains on IV antibiotic therapy. He had an uneventful dialysis yesterday. MEDICATIONS: Medication list reviewed. The patient is on hydralazine, eyedrops, Brilinta, Claritin, Voltaren, vitamin D, DuoNeb, Ecotrin, Flomax, Glucotrol, insulin, Lipitor, Lopressor, Lovaza, Lyrica, meropenem, p.r.n. morphine, Tucker nasal spray, p.r.n. Percocet, PhosLo, Protonix, Renagel, Advair, Singulair, Synthroid, Thera-Tabs, TriCor, Zofran p.r.n. and Zyvox. OBJECTIVE: INTAKE/OUTPUT: Intake is 907, output is with hemodialysis yesterday. VITAL SIGNS: Blood pressure is 105/43, temperature 98.5, respiratory rate is 18 with a pulse of 63. HEENT: Exam shows him to be normocephalic, atraumatic. Conjunctivae are pale. Sclerae are nonicteric. NECK: Supple. No neck vein distention. CHEST: Clear to auscultation and percussion with no rales, rhonchi or wheezing. CARDIOVASCULAR: Shows a regular rate and rhythm with permanent pacemaker in place. /AI/MR/TR. No S3. No S4, no rub. ABDOMEN: Soft. Bowel sounds normal. No rebound, guarding or masses. EXTREMITIES: Show a dry and intact dressing over his right lower extremity in the area of the right TMA. He has a left upper extremity AV fistula. LABORATORY DATA AND IMAGING: CBC from today: White blood cell count down to 8.5, hemoglobin slightly lower at 7.6. Platelet count is 142,000. Chemistries today: Electrolytes are normal. BUN 22 with a creatinine of 4.6, this is one day post dialysis. Glucose is 119. Calcium is 8.2. Last phosphorus level was 3. Iron saturations were 54%. DATA: Microbiology: All cultures are negative. Blood cultures are negative at 3 and 4 days. Wound culture is negative at 24 hours. Blood bank, the patient has received three units of packed red blood cells. ASSESSMENT: 1. End-stage renal disease. The patient will continue Monday, Monday and Monday dialysis. 2. History of severe peripheral vascular disease, status post right transmetatarsal amputation postop day #3. The patient is thankful that he only required a minor procedure and not a [id number] amputation. He will remain on IV antibiotic therapy with close monitoring of the surgical site and wound care as per Dr. Villanueva. 3. Severe anemia. The patient received a total of 3 units of packed red blood cells. Hemoglobin was 6.3 at its lowest value, it has improved but trending downward. The patient will receive maximum doses of Aranesp 100 mcg a week and the patient will be transfused on a p.r.n. basis. 4. History of insulin-dependent diabetes mellitus. Continue insulin with sliding scale coverage. 5. History of secondary hyperparathyroidism. Last phosphorus level was excellent at 3. Calcium was 8.2. 6. 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 7. History of a recent subdural hematoma secondary to a fall. This appears to be stable. 8. History of obstructive sleep apnea, the patient is using CPAP therapy at night. PLAN: 1. Hemodialysis scheduled for 10/09/2017. 2. Continue IV antibiotic therapy under the guidance of Infectious Disease. All cultures are negative to date. 3. Continue local wound care, status post right TMA, this is being done by Dr. Villanueva and her team. 4. Continue all dietary restrictions. 5. Close renal followup during hospitalization. Toy Martinez MD
--- NOTE | 2017-10-07 13:37 | PN ---
DATE: 10/07/2017 SUBJECTIVE: The patient is in bed, in no acute distress, nontoxic. PHYSICAL EXAMINATION: VITAL SIGNS: Temperature is 98, blood pressure is 109/50, respiratory rate of 18. HEENT: Examination of HEENT is unremarkable. NECK: Supple. LUNGS: Have decreased breath sounds. HEART: Normal S1, S2. ABDOMEN: Soft. LABORATORY DATA: Laboratory examination reveals a white count of 8.5, hemoglobin of 7, platelets of 142. Chemistries reveals a BUN of 22, creatinine of 4.6. ASSESSMENT AND PLAN: A 52-year-old with a right foot cellulitis with gangrene, osteomyelitis, status post transmetatarsal amputation, postoperative day #3 with a history of bilateral healthcare-associated pneumonia, history of sepsis and gastroenteritis and end-stage renal disease, on hemodialysis, obesity, diabetic, coronary artery disease, retinopathy, on Zyvox and meropenem based on previous cultures which included vancomycin-resistant Enterococcus, day #4. Waiting for pathology. The wound cultures from 10/04/2017 are no growth. The blood cultures from 10/04/2017 are no growth. Pathology is pending. Currently on meropenem, linezolid. Jaspreet Forbes MD
[2017-10-07] MEDS: Insulin Human NPH 1 UNITS/0.01 ML SC SCH (18:07)
[2017-10-08] MEDS: BIMATOPROST OU SCH ×2 (00:20→21:13)
[2017-10-08] MEDS: Albuterol-Ipratrop 3 mg / 0.5 (3 ml) UD IH SCH ×5 (01:29→19:42)
[2017-10-08] MEDS: Morphine 2 mg/ml ISec IVP PRN ×4 (02:14→21:16)
[2017-10-08] MEDS: Levothyroxine 25 MCG TAB PO SCH (06:05)
[2017-10-08] MEDS: Pantoprazole 40 mg EC Tab PO SCH (06:05)
--- NOTE | 2017-10-08 07:03 | CP.PCM.PN ---
Subjective - Date & Time of Evaluation Date of Evaluation: 10/08/17 Time of Evaluation: 06:55 - Subjective Subjective: No distress, awake, alert, lying in bed, Reason for consultation and follow up:Cardiac evaluation for questionable history of vegetation on pacemaker when he was at [facility]. Admitted for right toe ulcer/gangrene. History of peripheral arterial disease, coronary artery disease with multiple stents, sick sinus syndrome with PPM, history of fall with subdural hematoma and was on Brilinta at that time. Seen and examined by me and Dr. Erickson Objective - Vital Signs/Intake and Output Vital Signs (last 24 hours): Temp Pulse Resp BP Pulse Ox 99.3 F 65 18 121/54 L 97 10/07/17 15:33 10/07/17 18:08 10/07/17 15:33 10/07/17 18:08 10/07/17 15:33 Intake and Output: 10/08/17 10/08/17 06:59 18:59 Intake Total 50 Balance 50 - Medications Medications: Current Medications Albuterol/Ipratropium (Duoneb 3 Mg/0.5 Mg (3 Ml) Ud) 3 ml IH [id number] [facility] Last Admin: 10/08/17 01:46 Dose: 3 ml Aspirin (Ecotrin) 81 mg PO DAILY [facility] Last Admin: 10/07/17 11:00 Dose: 81 mg Atorvastatin Calcium (Lipitor) 40 mg PO DIN [facility] Last Admin: 10/07/17 18:08 Dose: 40 mg Calcium Acetate (Phoslo) 1,334 mg PO WM [facility] Last Admin: 10/07/17 18:10 Dose: 1,334 mg Darbepoetin Jimmie (Aranesp) 100 mcg IVP ONCE ONE Stop: 10/09/17 06:01 Ergocalciferol (Drisdol 50,000 Intl Units Cap) 1 cap PO WED [facility] Last Admin: 10/04/17 12:48 Dose: 1 cap Fenofibrate (Tricor) 145 mg PO DAILY [facility] Last Admin: 10/07/17 11:01 Dose: 145 mg Glipizide (Glucotrol) 10 mg PO DAILY [facility] Last Admin: 10/07/17 11:09 Dose: Not Given Hydralazine HCl (Apresoline) 25 mg PO BID [facility] Last Admin: 10/07/17 18:07 Dose: Not Given Meropenem 500 mg/ Sodium (Chloride) 50 mls @ 100 mls/hr IVPB Q12 [facility] PRN Reason: Protocol Stop: 10/12/17 14:01 Last Admin: 10/07/17 22:14 Dose: 100 mls/hr Dextrose (Dextrose 10% In Water) 500 mls @ 20 mls/hr IV .Q24H [facility] Last Admin: 10/04/17 13:22 Dose: 20 mls/hr Insulin Human NPH (Humulin N) 50 units SC QPM [facility] Last Admin: 10/07/17 18:07 Dose: Not Given Insulin Human Regular (Humulin R Low) 0 units SC ACHS [facility] PRN Reason: Protocol Last Admin: 10/07/17 22:35 Dose: Not Given Levothyroxine Sodium (Synthroid) 25 mcg PO 0600 [facility] Last Admin: 10/08/17 06:05 Dose: 25 mcg Linezolid (Zyvox) 600 mg PO BID [facility] PRN Reason: Protocol Last Admin: 10/07/17 18:10 Dose: 600 mg Loratadine (Claritin) 10 mg PO [facility] Last Admin: 10/07/17 22:14 Dose: 10 mg Metoprolol Tartrate (Lopressor) 50 mg PO QPM [facility] Last Admin: 10/07/17 18:08 Dose: Not Given Montelukast Sodium (Singulair) 10 mg PO [facility] Last Admin: 10/07/17 22:14 Dose: 10 mg Morphine Sulfate (Morphine) 2 mg IVP Q5H PRN PRN Reason: Pain, severe (8-10) Last Admin: 10/08/17 02:14 Dose: 2 mg Multivitamins (Thera Tab) 1 tab PO DAILY [facility] Last Admin: 10/07/17 11:01 Dose: 1 tab Non-Formulary Medication (Bimatoprost [Lumigan]) 1 drp OU HS [facility] Last Admin: 10/08/17 00:20 Dose: Not Given Non-Formulary Medication (Diclofenac Sodium [Voltaren]) 1 appl TOP DAILY [facility] Last Admin: 10/07/17 10:58 Dose: Not Given Non-Formulary Medication (Salmeterol Xinafoate/Fluticaso [Advair Hfa 230-21]) 1 puff IH BID [facility] Last Admin: 10/07/17 18:12 Dose: Not Given Aaxzu-2-Cjxo Ethyl Esters (Lovaza) 2 gm PO BID [facility] Last Admin: 10/07/17 18:10 Dose: 2 gm Ondansetron HCl (Zofran Inj) 4 mg IVP Q6H PRN PRN Reason: Nausea/Vomiting Oxycodone/Acetaminophen (Percocet 10/325 Mg Tab) 1 tab PO Q6H PRN PRN Reason: Pain, moderate (4-7) Pantoprazole Sodium (Protonix Ec Tab) 40 mg PO 0600 [facility] Last Admin: 10/08/17 06:05 Dose: 40 mg Pregabalin (Lyrica) 50 mg PO HS [facility] Last Admin: 10/07/17 22:14 Dose: 50 mg Sevelamer HCl (Renagel) 1,600 mg PO WM [facility] Last Admin: 10/07/17 18:28 Dose: 1,600 mg Sodium Chloride ([place] Nasal [place]) 1 ml NS Q2H PRN PRN Reason: Nasal congestion Last Admin: 10/07/17 12:57 Dose: 1 spr Tamsulosin HCl (Flomax) 0.4 mg PO [facility] Last Admin: 10/07/17 22:14 Dose: 0.4 mg Ticagrelor (Brilinta) 90 mg PO BID [facility] Last Admin: 10/03/17 18:10 Dose: 90 mg - Labs Labs: 10/07/17 06:30 10/07/17 06:30 PT 19.3 SECONDS (9.4-12.5) H 10/02/17 21:20 INR 1.68 (0.93-1.08) H 10/02/17 21:20 APTT 32.0 Seconds (25.1-36.5) 10/02/17 21:20 - Constitutional Appears: No Acute Distress - Eye Exam Eye Exam: Normal appearance - ENT Exam ENT Exam: Mucous Membranes Dry, Mucous Membranes Moist - Respiratory Exam Respiratory Exam: Clear to Ausculation Bilateral, NORMAL BREATHING PATTERN - Cardiovascular Exam Cardiovascular Exam: +S1, +S2 Additional comments: PPM - GI/Abdominal Exam GI & Abdominal Exam: Soft, Normal Bowel Sounds - Exam Additional comments: hemodialysis (MWF) - Extremities Exam Additional comments: Left AV shunt positive bruit right foot pearl wrapped - Neurological Exam Neurological Exam: Alert, Awake, Oriented x3 - Psychiatric Exam Psychiatric exam: Normal Affect, Normal Mood - Skin Skin Exam: Dry, Warm Assessment and Plan - Assessment and Plan (Free Text) Assessment: A 52 year old male who was admitted due to right toe ulcer/gangrene.Consult was called for evaluation for questionable history of vegetation on pacemaker when he was at [facility]. History of peripheral arterial disease, coronary artery disease with multiple stents, sick sinus syndrome with PPM, history of fall with subdural hematoma and was on Brilinta at that time.(held off Brilinta for 2 weeks then resumed due to recent stent placement),resistant to Plavix. ESRD on hemodialysis, diabetes, diabetic neuropathy, diabetic nephropathy, retinopathy, COPD, history of pancreatitis, hypertriglyceridemia, CVA,spinal stenosis. Recently admitted at [facility] and recommended amputation of right leg but family refused and discharged. ECHO done 10/03/17-LVEF 60-65%, Moderate to severe AR, moderate aortic stenosis, moderate MR, moderate to severe TR Echogenic mobile structure attached to aortic valve leaflet, with same consistency of valve, can not rule out vegetation versus degenerative changes, will correlate clinically with blood cultures. Post right foot transmetatarsal amputation 10/04/17. Transfused 3 units PRBC for low hemoglobin.10/05/17. Plan: On contact isolation Blood cultures no growth Wound culture positive for gram positive cocci On IV antibiotics, ID on consult Post transfusion hemoglobin 7.4, will monitor, no apparent bleeding site, Haptoglobulin normal Cardiac status stable Heart rate and blood pressure controlled Continue current treatment Continue current medications Fall precaution OOB to chair Physical therapy Will follow up Plan and treatment discussed with Dr. Erickson
[2017-10-08] MEDS: Insulin Reg-LOW-Coverage SC SCH ×4 (07:58→21:15)
[2017-10-08 08:00] LABS: HEMOGLOBIN 7.7 g/dL (14.0-18.0); MEAN CELL VOLUME 89.4 fl (80.0-105.0); MEAN CORPUSCULAR HEMOGLOBIN 28.2 pg (25.0-35.0); MEAN CORPUSCULAR HGB CONC 31.6 g/dl (31.0-37.0); MEAN PLATELET VOLUME 11.6 fl (7.0-11.0); RBC 2.73 10^6/uL (3.5-6.1); RED CELL DISTRIBUTION WIDTH 18.7 % (11.5-14.5); WHITE BLOOD COUNT 8.5 10^3/ul (4.5-11.0)
[2017-10-08 08:06] LABS: CALCIUM 8.6 mg/dL (8.4-10.5)
[2017-10-08] MEDS: Omega-3-Acid Ethyl Esters 1 GM Cap PO SCH ×2 (09:03→17:52)
[2017-10-08] MEDS: Meropenem 500 MG in Sodium Chloride 0.9% 50 ML IVPB SCH ×2 (09:03→21:12)
[2017-10-08] MEDS: Multivitamin Therapeutic Tab PO SCH (09:04)
[2017-10-08] MEDS: DICLOFENAC SODIUM APPL TOP SCH (09:05)
[2017-10-08] MEDS: SALMETEROL XINAFOATE IH SCH ×2 (09:26→17:59)
[2017-10-08] MEDS: FLUTICASO IH SCH ×2 (09:26→17:59)
--- NOTE | 2017-10-08 09:57 | CP.PCM.PN ---
Subjective - Date & Time of Evaluation Date of Evaluation: 10/08/17 Time of Evaluation: 09:15 - Subjective Subjective: less pain in R foot, NAD Objective - Vital Signs/Intake and Output Vital Signs (last 24 hours): Temp Pulse Resp BP Pulse Ox 98.4 F 64 18 118/56 L 95 10/08/17 06:00 10/08/17 09:07 10/08/17 06:00 10/08/17 09:07 10/08/17 06:00 Intake and Output: 10/08/17 10/08/17 06:59 18:59 Intake Total 50 Balance 50 - Medications Medications: Current Medications Albuterol/Ipratropium (Duoneb 3 Mg/0.5 Mg (3 Ml) Ud) 3 ml IH [id number] [facility] Last Admin: 10/08/17 08:13 Dose: 3 ml Aspirin (Ecotrin) 81 mg PO DAILY [facility] Last Admin: 10/08/17 09:04 Dose: 81 mg Atorvastatin Calcium (Lipitor) 40 mg PO DIN [facility] Last Admin: 10/07/17 18:08 Dose: 40 mg Calcium Acetate (Phoslo) 1,334 mg PO WM [facility] Last Admin: 10/08/17 09:03 Dose: 1,334 mg Darbepoetin Jimmie (Aranesp) 100 mcg IVP ONCE ONE Stop: 10/09/17 06:01 Ergocalciferol (Drisdol 50,000 Intl Units Cap) 1 cap PO WED [facility] Last Admin: 10/04/17 12:48 Dose: 1 cap Fenofibrate (Tricor) 145 mg PO DAILY [facility] Last Admin: 10/08/17 09:04 Dose: 145 mg Glipizide (Glucotrol) 10 mg PO DAILY [facility] Last Admin: 10/08/17 09:04 Dose: 10 mg Hydralazine HCl (Apresoline) 25 mg PO BID [facility] Last Admin: 10/08/17 09:07 Dose: Not Given Meropenem 500 mg/ Sodium (Chloride) 50 mls @ 100 mls/hr IVPB Q12 [facility] PRN Reason: Protocol Stop: 10/12/17 14:01 Last Admin: 10/08/17 09:03 Dose: 100 mls/hr Dextrose (Dextrose 10% In Water) 500 mls @ 20 mls/hr IV .Q24H [facility] Last Admin: 10/04/17 13:22 Dose: 20 mls/hr Insulin Human NPH (Humulin N) 50 units SC QPM [facility] Last Admin: 10/07/17 18:07 Dose: Not Given Insulin Human Regular (Humulin R Low) 0 units SC ACHS [facility] PRN Reason: Protocol Last Admin: 10/08/17 07:58 Dose: Not Given Levothyroxine Sodium (Synthroid) 25 mcg PO 0600 [facility] Last Admin: 10/08/17 06:05 Dose: 25 mcg Linezolid (Zyvox) 600 mg PO BID [facility] PRN Reason: Protocol Last Admin: 10/08/17 09:04 Dose: 600 mg Loratadine (Claritin) 10 mg PO HS [facility] Last Admin: 10/07/17 22:14 Dose: 10 mg Metoprolol Tartrate (Lopressor) 50 mg PO QPM [facility] Last Admin: 10/07/17 18:08 Dose: Not Given Montelukast Sodium (Singulair) 10 mg PO [facility] Last Admin: 10/07/17 22:14 Dose: 10 mg Morphine Sulfate (Morphine) 2 mg IVP Q5H PRN PRN Reason: Pain, severe (8-10) Last Admin: 10/08/17 09:19 Dose: 2 mg Multivitamins (Thera Tab) 1 tab PO DAILY [facility] Last Admin: 10/08/17 09:04 Dose: 1 tab Non-Formulary Medication (Bimatoprost [Lumigan]) 1 drp OU [facility] Last Admin: 10/08/17 00:20 Dose: Not Given Non-Formulary Medication (Diclofenac Sodium [Voltaren]) 1 appl TOP DAILY [facility] Last Admin: 10/08/17 09:05 Dose: Not Given Non-Formulary Medication (Salmeterol Xinafoate/Fluticaso [Advair Hfa 230-21]) 1 puff IH BID [facility] Last Admin: 10/08/17 09:26 Dose: Not Given Zhuif-6-Duww Ethyl Esters (Lovaza) 2 gm PO BID [facility] Last Admin: 10/08/17 09:03 Dose: 2 gm Ondansetron HCl (Zofran Inj) 4 mg IVP Q6H PRN PRN Reason: Nausea/Vomiting Oxycodone/Acetaminophen (Percocet 10/325 Mg Tab) 1 tab PO Q6H PRN PRN Reason: Pain, moderate (4-7) Pantoprazole Sodium (Protonix Ec Tab) 40 mg PO 0600 [facility] Last Admin: 10/08/17 06:05 Dose: 40 mg Pregabalin (Lyrica) 50 mg PO HS [facility] Last Admin: 10/07/17 22:14 Dose: 50 mg Sevelamer HCl (Renagel) 1,600 mg PO WM [facility] Last Admin: 10/08/17 09:04 Dose: 1,600 mg Sodium Chloride ([place] Nasal [place]) 1 ml NS Q2H PRN PRN Reason: Nasal congestion Last Admin: 10/07/17 12:57 Dose: 1 spr Tamsulosin HCl (Flomax) 0.4 mg PO HS [facility] Last Admin: 10/07/17 22:14 Dose: 0.4 mg Ticagrelor (Brilinta) 90 mg PO BID [facility] Last Admin: 10/03/17 18:10 Dose: 90 mg - Labs Labs: 10/08/17 07:00 10/08/17 07:00 PT 19.3 SECONDS (9.4-12.5) H 10/02/17 21:20 INR 1.68 (0.93-1.08) H 10/02/17 21:20 APTT 32.0 Seconds (25.1-36.5) 10/02/17 21:20 - Respiratory Exam Respiratory Exam: Clear to Ausculation Bilateral, NORMAL BREATHING PATTERN - Cardiovascular Exam Cardiovascular Exam: REGULAR RHYTHM - GI/Abdominal Exam GI & Abdominal Exam: Soft, Normal Bowel Sounds - Extremities Exam Additional comments: R foot dressing clean/intact - Neurological Exam Neurological Exam: Alert, Awake - Skin Skin Exam: Dry, Warm Assessment and Plan (1) Diabetic infection of right foot Status: Acute (2) ESRD (end stage renal disease) on dialysis Status: Chronic (3) Diabetes Status: Chronic - Assessment and Plan (Free Text) Plan: continue post-op care, analgesics, Dr. Kessler to resume care of pt in am
--- NOTE | 2017-10-08 13:55 | PN ---
DATE: 10/08/2017 PULMONARY PROGRESS NOTE REFERRING PHYSICIAN: Diana Kessler MD. SUBJECTIVE: The patient is lying in the bed, head at 45 degrees. Right lower extremity is elevated on the pillow. Night was unremarkable, tolerated CPAP well. On and off has some bloody secretion in the right nostril. No short of breath at rest. No nausea, no vomiting, no diarrhea. Right foot discomfort requiring pain medication. OBJECTIVE: GENERAL: In no acute distress. VITAL SIGNS: Temperature is 98, heart rate is 62, respiratory rate is 18, blood pressure 124/64, pulse ox 95% on room air. HEENT: Moist mucous membrane. Crowded airway. NECK: Supple. No JVD. LUNGS: Fair airflow with few rhonchi. HEART: S1 and S2. ABDOMEN: Soft, nontender. No organomegaly. EXTREMITIES: There is no edema of the left leg. Right foot is in with dressing. NEUROLOGICAL: Awake and alert. Follows simple command. MEDICATIONS: He is on hydralazine 25 mg twice a day, Aranesp 100 mcg daily, Brilinta 90 mg twice a day, Claritin 10 mg at bedtime, Voltaren apply to affected area, vitamin D 50,000 units weekly, DuoNeb every 6 hours [id number], Ecotrin 81 mg daily, Flomax 0.4 mg daily, glipizide 10 mg daily, insulin coverage, Lipitor 40 mg daily, metoprolol tartrate 50 mg daily, Lovaza 2 g twice a day, Lyrica 50 mg daily, meropenem 1 g IV every 12 hours, morphine 2 mg every 5 hours p.r.n., nasal saline 1 spray to each nostril every 2 hours p.r.n., Percocet 10/325 one tab every 6 hours p.r.n., PhosLo with the meals, Protonix 40 mg daily, Renagel with the meals, Advair is HFA 230/21 one puff twice a day, Singulair 10 mg daily, Synthroid 25 mcg daily, multivitamins daily, Tricor 145 mg daily, Zofran p.r.n., Zyvox 600 mg twice a day. LABORATORY DATA: Shows hemoglobin 7.7, hematocrit 24.4, WBC 8.5, platelet count is 141. Sodium 133, potassium 5.3, chloride 96, bicarbonate 27, BUN 38, creatinine 6.3, glucose 140, calcium is 8.6, LDH 620. Wound culture has a VRE. IMPRESSION AND PLAN: Chronic obstructive lung disease, obstructive sleep apnea syndrome, cardiomyopathy, coronary artery disease, pulmonary hypertension, diabetes, hypertension, peripheral vascular disease, has nonhealing right foot ulcers requiring partial foot amputation, peripheral neuropathy, legally blind. Pulmonary point of view, encourage continuous positive airway pressure use. Keep head at 45 degrees. May add nasal saline 2 spray to each nostril every 3 hours p.r.n. for dryness. Gastric prophylaxis, deep venous thrombosis prophylaxis. Elevate right foot. Antibiotics as per Infectious Diseases. Thank you and we will follow with you. Jarred Escalera MD
--- NOTE | 2017-10-08 15:04 | CP.PCM.PN ---
<Michell Restrepo - Last Filed: 10/08/17 15:00> Subjective - Date & Time of Evaluation Date of Evaluation: 10/08/17 Time of Evaluation: 15:00 - Subjective Subjective: Podiatry Progress Note- Dr villanueva 52 y/o male 4 days s/p right transmetatarsal amputation with debridement of bone and all nonviable soft tissue secondary to right foot wet gangrene secondary to DM and PAD. Patient is seen resting comfortably in bed, in NAD, and AA0x3. Patient reports pain to the right foot that comes and goes but slightly better than yesterday. Admits to Sleeping well. States he was told he might get discharged by Monday. Dressing is clean, dry, and intact without strike-through. Denies of any dizziness. Denies of nausea, fever, shortness of breath, chest pain or chills. Objective - Vital Signs/Intake and Output Vital Signs (last 24 hours): Temp Pulse Resp BP Pulse Ox 98.5 F 64 18 101/42 L 98 10/08/17 14:00 10/08/17 14:00 10/08/17 14:00 10/08/17 14:00 10/08/17 14:00 Intake and Output: 10/08/17 10/08/17 06:59 18:59 Intake Total 50 600 Balance 50 600 - Medications Medications: Current Medications Albuterol/Ipratropium (Duoneb 3 Mg/0.5 Mg (3 Ml) Ud) 3 ml IH [id number] [facility] Last Admin: 10/08/17 14:36 Dose: 3 ml Aspirin (Ecotrin) 81 mg PO DAILY [facility] Last Admin: 10/08/17 09:04 Dose: 81 mg Atorvastatin Calcium (Lipitor) 40 mg PO DIN [facility] Last Admin: 10/07/17 18:08 Dose: 40 mg Calcium Acetate (Phoslo) 1,334 mg PO WM [facility] Last Admin: 10/08/17 11:48 Dose: 1,334 mg Darbepoetin Jimmie (Aranesp) 100 mcg IVP ONCE ONE Stop: 10/09/17 06:01 Ergocalciferol (Drisdol 50,000 Intl Units Cap) 1 cap PO WED [facility] Last Admin: 10/04/17 12:48 Dose: 1 cap Fenofibrate (Tricor) 145 mg PO DAILY [facility] Last Admin: 10/08/17 09:04 Dose: 145 mg Glipizide (Glucotrol) 10 mg PO DAILY [facility] Last Admin: 10/08/17 09:04 Dose: 10 mg Hydralazine HCl (Apresoline) 25 mg PO BID [facility] Last Admin: 10/08/17 09:07 Dose: Not Given Meropenem 500 mg/ Sodium (Chloride) 50 mls @ 100 mls/hr IVPB Q12 [facility] PRN Reason: Protocol Stop: 10/12/17 14:01 Last Admin: 10/08/17 09:03 Dose: 100 mls/hr Dextrose (Dextrose 10% In Water) 500 mls @ 20 mls/hr IV .Q24H [facility] Last Admin: 10/04/17 13:22 Dose: 20 mls/hr Insulin Human NPH (Humulin N) 50 units SC QPM [facility] Last Admin: 10/07/17 18:07 Dose: Not Given Insulin Human Regular (Humulin R Low) 0 units SC ACHS [facility] PRN Reason: Protocol Last Admin: 10/08/17 11:52 Dose: 1 units Levothyroxine Sodium (Synthroid) 25 mcg PO 0600 [facility] Last Admin: 10/08/17 06:05 Dose: 25 mcg Linezolid (Zyvox) 600 mg PO BID [facility] PRN Reason: Protocol Last Admin: 10/08/17 09:04 Dose: 600 mg Loratadine (Claritin) 10 mg PO [facility] Last Admin: 10/07/17 22:14 Dose: 10 mg Metoprolol Tartrate (Lopressor) 50 mg PO QPM [facility] Last Admin: 10/07/17 18:08 Dose: Not Given Montelukast Sodium (Singulair) 10 mg PO [facility] Last Admin: 10/07/17 22:14 Dose: 10 mg Morphine Sulfate (Morphine) 2 mg IVP Q5H PRN PRN Reason: Pain, severe (8-10) Last Admin: 10/08/17 14:14 Dose: 2 mg Multivitamins (Thera Tab) 1 tab PO DAILY [facility] Last Admin: 10/08/17 09:04 Dose: 1 tab Non-Formulary Medication (Bimatoprost [Lumigan]) 1 drp OU [facility] Last Admin: 10/08/17 00:20 Dose: Not Given Non-Formulary Medication (Diclofenac Sodium [Voltaren]) 1 appl TOP DAILY [facility] Last Admin: 10/08/17 09:05 Dose: Not Given Non-Formulary Medication (Salmeterol Xinafoate/Fluticaso [Advair Hfa 230-21]) 1 puff IH BID [facility] Last Admin: 10/08/17 09:26 Dose: Not Given Zbmlc-3-Tkyh Ethyl Esters (Lovaza) 2 gm PO BID [facility] Last Admin: 10/08/17 09:03 Dose: 2 gm Ondansetron HCl (Zofran Inj) 4 mg IVP Q6H PRN PRN Reason: Nausea/Vomiting Oxycodone/Acetaminophen (Percocet 10/325 Mg Tab) 1 tab PO Q6H PRN PRN Reason: Pain, moderate (4-7) Pantoprazole Sodium (Protonix Ec Tab) 40 mg PO 0600 [facility] Last Admin: 10/08/17 06:05 Dose: 40 mg Pregabalin (Lyrica) 50 mg PO [facility] Last Admin: 10/07/17 22:14 Dose: 50 mg Sevelamer HCl (Renagel) 1,600 mg PO [facility] Last Admin: 10/08/17 11:48 Dose: 1,600 mg Sodium Chloride ([place] Nasal [place]) 1 ml NS Q2H PRN PRN Reason: Nasal congestion Last Admin: 10/07/17 12:57 Dose: 1 spr Tamsulosin HCl (Flomax) 0.4 mg PO [facility] Last Admin: 10/07/17 22:14 Dose: 0.4 mg Ticagrelor (Brilinta) 90 mg PO BID [facility] Last Admin: 10/03/17 18:10 Dose: 90 mg - Labs Labs: 10/08/17 07:00 10/08/17 07:00 PT 19.3 SECONDS (9.4-12.5) H 10/02/17 21:20 INR 1.68 (0.93-1.08) H 10/02/17 21:20 APTT 32.0 Seconds (25.1-36.5) 10/02/17 21:20 - Constitutional Appears: Well, Non-toxic, No Acute Distress - Head Exam Head Exam: ATRAUMATIC, NORMOCEPHALIC - Extremities Exam Additional comments: Dressing is seen to be dry, clean and intact. No strikethrough is noted to the right lower extremity - Neurological Exam Neurological Exam: Alert, Awake, Oriented x3 - Psychiatric Exam Psychiatric exam: Normal Affect, Normal Mood Assessment and Plan - Assessment and Plan (Free Text) Assessment: 52 y/o male 4 days s/p right transmetatarsal amputation with debridement of bone and all nonviable soft tissue secondary to right foot wet gangrene secondary to DM and PAD. Plan: Patient seen and evaluated along with Dr. Quevedo All questions/concerns addressed Labs, vitals, and charts reviewed. WBC=8.5, H/H 7.6/24 Right foot X-rays s/p right foot surgery. Impression: There has been amputation at the level of the proximal metatarsals 1 through 5. Surgical clips are seen. There is air in the soft tissues. - Packing of idoform to large plantar ulceration may micmick air in soft tissues Dressing to be left dry, clean and intact until Monday; and probably start wound vac tomorrow (Monday) Do not WB to the right lower extremity SCDs while in bed c/w Multipodus boots. Patient to wear at all times while in bed. Physical therapy- evaluate and treat. Patient to be NWB to right lower extremity with assisting device. Patient reports having scooter in which patient will bring in from home. Intraop wound culture right foot-Vancomycin Resistant e. faecium Intraop specimen right foot- pending c/w iv abx per ID Recommends TCU to work with physical therapy and abx treatment Will continue to closely follow while in house Upon discharge will follow up with Dr. Villanueva in wound care clinic <Deborah Villanueva - Last Filed: 10/08/17 16:52> Objective - Vital Signs/Intake and Output Vital Signs (last 24 hours): Temp Pulse Resp BP Pulse Ox 98.5 F 64 18 101/42 L 98 10/08/17 14:00 10/08/17 14:00 10/08/17 14:00 10/08/17 14:00 10/08/17 14:00 Intake and Output: 10/08/17 10/08/17 06:59 18:59 Intake Total 50 600 Balance 50 600 - Medications Medications: Current Medications Albuterol/Ipratropium (Duoneb 3 Mg/0.5 Mg (3 Ml) Ud) 3 ml IH [id number] [facility] Last Admin: 10/08/17 14:36 Dose: 3 ml Aspirin (Ecotrin) 81 mg PO DAILY [facility] Last Admin: 10/08/17 09:04 Dose: 81 mg Atorvastatin Calcium (Lipitor) 40 mg PO DIN [facility] Last Admin: 10/07/17 18:08 Dose: 40 mg Calcium Acetate (Phoslo) 1,334 mg PO WM [facility] Last Admin: 10/08/17 11:48 Dose: 1,334 mg Darbepoetin Jimmei (Aranesp) 100 mcg IVP ONCE ONE Stop: 10/09/17 06:01 Ergocalciferol (Drisdol 50,000 Intl Units Cap) 1 cap PO WED [facility] Last Admin: 10/04/17 12:48 Dose: 1 cap Fenofibrate (Tricor) 145 mg PO DAILY [facility] Last Admin: 10/08/17 09:04 Dose: 145 mg Glipizide (Glucotrol) 10 mg PO DAILY [facility] Last Admin: 10/08/17 09:04 Dose: 10 mg Hydralazine HCl (Apresoline) 25 mg PO BID [facility] Last Admin: 10/08/17 09:07 Dose: Not Given Meropenem 500 mg/ Sodium (Chloride) 50 mls @ 100 mls/hr IVPB Q12 [facility] PRN Reason: Protocol Stop: 10/12/17 14:01 Last Admin: 10/08/17 09:03 Dose: 100 mls/hr Dextrose (Dextrose 10% In Water) 500 mls @ 20 mls/hr IV .Q24H [facility] Last Admin: 10/04/17 13:22 Dose: 20 mls/hr Insulin Human NPH (Humulin N) 50 units SC QPM [facility] Last Admin: 10/07/17 18:07 Dose: Not Given Insulin Human Regular (Humulin R Low) 0 units SC ACHS [facility] PRN Reason: Protocol Last Admin: 10/08/17 11:52 Dose: 1 units Levothyroxine Sodium (Synthroid) 25 mcg PO 0600 [facility] Last Admin: 10/08/17 06:05 Dose: 25 mcg Linezolid (Zyvox) 600 mg PO BID [facility] PRN Reason: Protocol Last Admin: 10/08/17 09:04 Dose: 600 mg Loratadine (Claritin) 10 mg PO HS [facility] Last Admin: 10/07/17 22:14 Dose: 10 mg Metoprolol Tartrate (Lopressor) 50 mg PO QPM [facility] Last Admin: 10/07/17 18:08 Dose: Not Given Montelukast Sodium (Singulair) 10 mg PO [facility] Last Admin: 10/07/17 22:14 Dose: 10 mg Morphine Sulfate (Morphine) 2 mg IVP Q5H PRN PRN Reason: Pain, severe (8-10) Last Admin: 10/08/17 14:14 Dose: 2 mg Multivitamins (Thera Tab) 1 tab PO DAILY [facility] Last Admin: 10/08/17 09:04 Dose: 1 tab Non-Formulary Medication (Bimatoprost [Lumigan]) 1 drp OU [facility] Last Admin: 10/08/17 00:20 Dose: Not Given Non-Formulary Medication (Diclofenac Sodium [Voltaren]) 1 appl TOP DAILY [facility] Last Admin: 10/08/17 09:05 Dose: Not Given Non-Formulary Medication (Salmeterol Xinafoate/Fluticaso [Advair Hfa 230-21]) 1 puff IH BID [facility] Last Admin: 10/08/17 09:26 Dose: Not Given [id number]-[id number] Ethyl Esters (Lovaza) 2 gm PO BID [facility] Last Admin: 10/08/17 09:03 Dose: 2 gm Ondansetron HCl (Zofran Inj) 4 mg IVP Q6H PRN PRN Reason: Nausea/Vomiting Oxycodone/Acetaminophen (Percocet 10/325 Mg Tab) 1 tab PO Q6H PRN PRN Reason: Pain, moderate (4-7) Pantoprazole Sodium (Protonix Ec Tab) 40 mg PO 0600 [facility] Last Admin: 10/08/17 06:05 Dose: 40 mg Pregabalin (Lyrica) 50 mg PO [facility] Last Admin: 10/07/17 22:14 Dose: 50 mg Sevelamer HCl (Renagel) 1,600 mg PO WM [facility] Last Admin: 10/08/17 11:48 Dose: 1,600 mg Sodium Chloride ([place] Nasal [place]) 1 ml NS Q2H PRN PRN Reason: Nasal congestion Last Admin: 10/07/17 12:57 Dose: 1 spr Tamsulosin HCl (Flomax) 0.4 mg PO [facility] Last Admin: 10/07/17 22:14 Dose: 0.4 mg Ticagrelor (Brilinta) 90 mg PO BID [facility] Last Admin: 10/03/17 18:10 Dose: 90 mg - Labs Labs: 10/08/17 07:00 10/08/17 07:00 PT 19.3 SECONDS (9.4-12.5) H 10/02/17 21:20 INR 1.68 (0.93-1.08) H 10/02/17 21:20 APTT 32.0 Seconds (25.1-36.5) 10/02/17 21:20 Attending/Attestation - Attestation I have personally seen and examined this patient.: Yes I have fully participated in the care of the patient.: Yes I have reviewed all pertinent clinical information, including history, physical exam and plan: Yes
--- NOTE | 2017-10-08 16:53 | PN ---
DATE: 10/08/2017 SUBJECTIVE: The patient is in bed, in no acute distress, nontoxic. PHYSICAL EXAMINATION: VITAL SIGNS: Temperature is 98, blood pressure is 118/60, respiratory rate of 18. HEENT: Examination of HEENT is unremarkable. NECK: Supple. LUNGS: Have decreased breath sounds. HEART: Normal S1 and S2. ABDOMEN: Soft, nontender. LABORATORY DATA: Laboratory examination reveals a white count of 8.5, hemoglobin of 7, platelets of 141. Coagulation is noted. Chemistries reveals a BUN of 38, creatinine of 6.3. 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 Review of orders reveals the patient on meropenem and Zyvox. ASSESSMENT AND PLAN: A 52-year-old male with a right foot cellulitis and gangrene, osteomyelitis, status post transmetatarsal amputation, postoperative day #4 with a history of bilateral healthcare-associated pneumonia, history of sepsis, gastroenteritis, end-stage renal disease, on hemodialysis, obesity, diabetic, coronary artery disease, retinopathy. On day #5 of meropenem, Zyvox. Pending pathology report. Jaspreet Forbes MD
[2017-10-08] MEDS: Insulin Human NPH 1 UNITS/0.01 ML SC SCH (17:51)
[2017-10-08] MEDS: Oxycodone/Acetaminophen 10/325 mg Tab PO PRN (17:55)
[2017-10-09] MEDS: Albuterol-Ipratrop 3 mg / 0.5 (3 ml) UD IH SCH ×4 (01:41→18:15)
[2017-10-09] MEDS: Pantoprazole 40 mg EC Tab PO SCH (05:25)
[2017-10-09] MEDS: Levothyroxine 25 MCG TAB PO SCH (05:25)
[2017-10-09] MEDS: Oxycodone/Acetaminophen 10/325 mg Tab PO PRN ×2 (05:27→12:52)
[2017-10-09] MEDS ORDERED: Darbepoetin Alfa 100 mcg/ml Inj IVP ONE (06:00)
--- NOTE | 2017-10-09 07:05 | CP.PCM.PN ---
Subjective - Date & Time of Evaluation Date of Evaluation: 10/09/17 Time of Evaluation: 06:00 - Subjective Subjective: Alert, awake, sitting in bed, no distress Reason for consultation and follow up:Cardiac evaluation for questionable history of vegetation on pacemaker [place] [facility] [place]mitted for right toe ulcer/gangrene. History of peripheral arterial disease, coronary artery disease with multiple stents, sick sinus syndrome with PPM, history of fall with subdural hematoma and was on Brilinta at that time. Seen and examined by me and Dr. Erickson Objective - Vital Signs/Intake and Output Vital Signs (last 24 hours): Temp Pulse Resp BP Pulse Ox 98.1 F 64 20 109/49 L 100 10/08/17 22:00 10/08/17 22:00 10/08/17 22:00 10/08/17 22:00 10/08/17 22:00 Intake and Output: 10/09/17 10/09/17 06:59 18:59 Intake Total 180 Balance 180 - Medications Medications: Current Medications Albuterol/Ipratropium (Duoneb 3 Mg/0.5 Mg (3 Ml) Ud) 3 ml IH [id number] [facility] Last Admin: 10/09/17 01:41 Dose: 3 ml Aspirin (Ecotrin) 81 mg PO DAILY [facility] Last Admin: 10/08/17 09:04 Dose: 81 mg Atorvastatin Calcium (Lipitor) 40 mg PO DIN [facility] Last Admin: 10/08/17 17:52 Dose: 40 mg Calcium Acetate (Phoslo) 1,334 mg PO WM [facility] Last Admin: 10/08/17 17:52 Dose: 1,334 mg Ergocalciferol (Drisdol 50,000 Intl Units Cap) 1 cap PO WED [facility] Last Admin: 10/04/17 12:48 Dose: 1 cap Fenofibrate (Tricor) 145 mg PO DAILY [facility] Last Admin: 10/08/17 09:04 Dose: 145 mg Glipizide (Glucotrol) 10 mg PO DAILY [facility] Last Admin: 10/08/17 09:04 Dose: 10 mg Hydralazine HCl (Apresoline) 25 mg PO BID [facility] Last Admin: 10/08/17 17:59 Dose: Not Given Meropenem 500 mg/ Sodium (Chloride) 50 mls @ 100 mls/hr IVPB Q12 [facility] PRN Reason: Protocol Stop: 10/12/17 14:01 Last Admin: 10/08/17 21:12 Dose: 100 mls/hr Dextrose (Dextrose 10% In Water) 500 mls @ 20 mls/hr IV .Q24H [facility] Last Admin: 10/04/17 13:22 Dose: 20 mls/hr Insulin Human NPH (Humulin N) 50 units SC QPM [facility] Last Admin: 10/08/17 17:51 Dose: Not Given Insulin Human Regular (Humulin R Low) 0 units SC ACHS [facility] PRN Reason: Protocol Last Admin: 10/08/17 21:15 Dose: Not Given Levothyroxine Sodium (Synthroid) 25 mcg PO 0600 [facility] Last Admin: 10/09/17 05:25 Dose: 25 mcg Linezolid (Zyvox) 600 mg PO BID [facility] PRN Reason: Protocol Last Admin: 10/08/17 17:52 Dose: 600 mg Loratadine (Claritin) 10 mg PO [facility] Last Admin: 10/08/17 21:13 Dose: 10 mg Metoprolol Tartrate (Lopressor) 50 mg PO QPM [facility] Last Admin: 10/08/17 17:58 Dose: 50 mg Montelukast Sodium (Singulair) 10 mg PO [facility] Last Admin: 10/08/17 21:13 Dose: 10 mg Morphine Sulfate (Morphine) 2 mg IVP Q5H PRN PRN Reason: Pain, severe (8-10) Last Admin: 10/08/17 21:16 Dose: 2 mg Multivitamins (Thera Tab) 1 tab PO DAILY [facility] Last Admin: 10/08/17 09:04 Dose: 1 tab Non-Formulary Medication (Bimatoprost [Lumigan]) 1 drp OU HS [facility] Last Admin: 10/08/17 21:13 Dose: Not Given Non-Formulary Medication (Diclofenac Sodium [Voltaren]) 1 appl TOP DAILY [facility] Last Admin: 10/08/17 09:05 Dose: Not Given Non-Formulary Medication (Salmeterol Xinafoate/Fluticaso [Advair Hfa 230-21]) 1 puff IH BID [facility] Last Admin: 10/08/17 17:59 Dose: Not Given Omamv-7-Myuh Ethyl Esters (Lovaza) 2 gm PO BID [facility] Last Admin: 10/08/17 17:52 Dose: 2 gm Ondansetron HCl (Zofran Inj) 4 mg IVP Q6H PRN PRN Reason: Nausea/Vomiting Last Admin: 10/08/17 18:07 Dose: 4 mg Oxycodone/Acetaminophen (Percocet 10/325 Mg Tab) 1 tab PO Q6H PRN PRN Reason: Pain, moderate (4-7) Last Admin: 10/09/17 05:27 Dose: 1 tab Pantoprazole Sodium (Protonix Ec Tab) 40 mg PO 0600 [facility] Last Admin: 10/09/17 05:25 Dose: 40 mg Pregabalin (Lyrica) 50 mg PO HS [facility] Last Admin: 10/08/17 21:13 Dose: 50 mg Sevelamer HCl (Renagel) 1,600 mg PO WM [facility] Last Admin: 10/08/17 17:52 Dose: 1,600 mg Sodium Chloride ([place] Nasal [place]) 1 ml NS Q2H PRN PRN Reason: Nasal congestion Last Admin: 10/07/17 12:57 Dose: 1 spr Tamsulosin HCl (Flomax) 0.4 mg PO [facility] Last Admin: 10/08/17 21:13 Dose: 0.4 mg Ticagrelor (Brilinta) 90 mg PO BID [facility] Last Admin: 10/03/17 18:10 Dose: 90 mg - Labs Labs: 10/08/17 07:00 10/08/17 07:00 PT 19.3 SECONDS (9.4-12.5) H 10/02/17 21:20 INR 1.68 (0.93-1.08) H 10/02/17 21:20 APTT 32.0 Seconds (25.1-36.5) 10/02/17 21:20 - Constitutional Appears: No Acute Distress - Eye Exam Eye Exam: Normal appearance - ENT Exam ENT Exam: Mucous Membranes Moist - Respiratory Exam Respiratory Exam: Clear to Ausculation Bilateral, NORMAL BREATHING PATTERN - Cardiovascular Exam Cardiovascular Exam: +S1, +S2 Additional comments: PPM - GI/Abdominal Exam GI & Abdominal Exam: Soft, Normal Bowel Sounds - Exam Additional comments: hemodialysis 3x a week (MWF) - Extremities Exam Additional comments: left arm AV shunt +bruit/thrill right foot dressing/pearl wrapped - Neurological Exam Neurological Exam: Alert, Awake, Oriented x3 - Psychiatric Exam Psychiatric exam: Normal Affect, Normal Mood - Skin Skin Exam: Dry, Intact, Warm Assessment and Plan - Assessment and Plan (Free Text) Assessment: A 52 year old male who was admitted due to right toe ulcer/gangrene.Consult was called for evaluation for questionable history of vegetation on pacemaker when [place] [facility] [place] History of peripheral arterial disease, coronary artery disease with multiple stents, sick sinus syndrome with PPM, history of fall with subdural hematoma and was on Brilinta at that time.(held off Brilinta for 2 weeks then resumed due to recent stent placement),resistant to Plavix. ESRD on hemodialysis, diabetes, diabetic neuropathy, diabetic nephropathy, retinopathy, COPD, history of pancreatitis, hypertriglyceridemia, CVA,spinal stenosis. Recently [place] [facility] [place] recommended amputation of right leg but family refused and discharged. ECHO done 10/03/17-LVEF 60-65%, Moderate to severe AR, moderate aortic stenosis, moderate MR, moderate to severe TR Echogenic mobile structure attached to aortic valve leaflet, with same consistency of valve, can not rule out vegetation versus degenerative changes, will correlate clinically with blood cultures. Post right foot transmetatarsal amputation 10/04/17. Transfused 3 units PRBC for low hemoglobin.10/05/17.Blood cultures negative growth Plan: No distress, feels well, Claimed right foot wound for change of dressing today On contact isolation Wound culture positive for gram positive cocci On IV antibiotics, ID on consult For hemodialysis today Cardiac status stable Heart rate and blood pressure controlled Glucose controlled Continue current treatment Continue current medications Fall precaution OOB to chair Physical therapy Will follow up Plan and treatment discussed with Dr. Erickson
--- NOTE | 2017-10-09 08:59 | PN ---
DATE: 10/07/2017 PULMONARY PROGRESS NOTE REFERRING PHYSICIAN: Diana Kessler MD. SUBJECTIVE: The patient is lying in the bed, head at 45 degrees, sleepy, arousable. Night was unremarkable, tolerated BiPAP well. No headache, no rhinitis. No nausea, no vomiting. Right foot has a dressing. OBJECTIVE: GENERAL: In no acute distress. VITAL SIGNS: Temperature is 99, heart rate is 64, respiratory rate is 20, blood pressure 122/54, pulse ox 97% on room air. HEENT: Moist mucous membrane. Crowded airway. NECK: Supple. No JVD. LUNGS: Have fair airflow with rhonchi. HEART: S1 and S2. ABDOMEN: Soft, nontender. No organomegaly. EXTREMITIES: No edema, has a right foot dressing. NEUROLOGICAL: Awake and alert. Follows simple command. MEDICATIONS: He is on hydralazine, which is on hold; Aranesp 100 mcg daily; also getting Brilinta 90 mg twice a day; Claritin 10 mg daily; Voltaren affected area daily; vitamin D 50,000 units weekly; DuoNeb every 6 hours [id number]; Ecotrin 81 mg daily; Flomax 0.4 mg at bedtime; glipizide 10 mg daily; insulin coverage; Lipitor 40 mg daily; metoprolol tartrate 50 mg daily; Lovaza 2 g twice a day; Lyrica 50 mg at bedtime; meropenem 500 mg every 12 hours; morphine 2 mg every 5 hours p.r.n.; nasal saline p.r.n.; Percocet 10/325 one tab every 6 hours p.r.n.; PhosLo with meals; Protonix 40 mg daily; Renagel with meals; Singulair 10 mg daily; Synthroid 25 mcg daily; multivitamins daily; Tricor 145 mg daily; Zofran p.r.n.; Zyvox 600 mg twice a day. LABORATORY DATA: Shows hemoglobin 7.6, hematocrit 24, WBC 8.5, platelet is 142. Sodium 134, potassium 4.2, chloride 97, bicarbonate 31, BUN 22, creatinine 4.6, glucose 119, calcium is 8.2. Wound culture has gram-positive cocci. IMPRESSION AND PLAN: Chronic obstructive lung disease, obstructive sleep apnea syndrome, cardiomyopathy, coronary artery disease, pulmonary hypertension, diabetes, hypertension, peripheral vascular disease, status post nonhealing right foot ulcers requiring partial amputation, peripheral neuropathy. Pulmonary point of view, doing okay. Continue current CPAP use. Keep head 45 degrees. Bronchodilator. Gastric prophylaxis. On antiplatelet, pain management. Once cleared by Podiatry, out of bed to chair, start physical therapy. Thank you and we will follow with you. Jarred Escalera MD
[2017-10-09] MEDS: Omega-3-Acid Ethyl Esters 1 GM Cap PO SCH ×2 (12:33→17:45)
[2017-10-09] MEDS: Insulin Reg-LOW-Coverage SC SCH ×3 (12:33→21:23)
[2017-10-09] MEDS: DICLOFENAC SODIUM APPL TOP SCH (12:33)
[2017-10-09] MEDS: SALMETEROL XINAFOATE IH SCH ×2 (12:34→21:23)
[2017-10-09] MEDS: FLUTICASO IH SCH ×2 (12:34→21:23)
[2017-10-09] MEDS: Multivitamin Therapeutic Tab PO SCH (12:52)
[2017-10-09] MEDS: Meropenem 500 MG in Sodium Chloride 0.9% 50 ML IVPB SCH ×2 (12:53→21:23)
[2017-10-09 14:16] LABS: MEAN CELL VOLUME 89.7 fl (80.0-105.0); MEAN CORPUSCULAR HEMOGLOBIN 28.5 pg (25.0-35.0); MEAN CORPUSCULAR HGB CONC 31.7 g/dl (31.0-37.0); MEAN PLATELET VOLUME 10.6 fl (7.0-11.0); RBC 2.81 10^6/uL (3.5-6.1); RED CELL DISTRIBUTION WIDTH 18.3 % (11.5-14.5); WHITE BLOOD COUNT 7.4 10^3/ul (4.5-11.0)
[2017-10-09 14:31] LABS: CALCIUM 8.2 mg/dL (8.4-10.5)
--- NOTE | 2017-10-09 15:18 | CP.PCM.PN ---
Subjective - Date & Time of Evaluation Date of Evaluation: 10/09/17 Time of Evaluation: 12:25 - Subjective Subjective: Comfortable, no fevers, still with pain in the right foot stump but a little better. Objective - Vital Signs/Intake and Output Vital Signs (last 24 hours): Temp Pulse Resp BP Pulse Ox 98 F 63 20 109/49 L 97 10/09/17 06:00 10/09/17 06:00 10/09/17 06:00 10/09/17 06:00 10/09/17 06:00 Intake and Output: 10/09/17 10/09/17 06:59 18:59 Intake Total 180 Balance 180 - Medications Medications: Current Medications Albuterol/Ipratropium (Duoneb 3 Mg/0.5 Mg (3 Ml) Ud) 3 ml IH [id number] [facility] Last Admin: 10/09/17 07:11 Dose: 3 ml Aspirin (Ecotrin) 81 mg PO DAILY [facility] Last Admin: 10/08/17 09:04 Dose: 81 mg Atorvastatin Calcium (Lipitor) 40 mg PO DIN [facility] Last Admin: 10/08/17 17:52 Dose: 40 mg Calcium Acetate (Phoslo) 1,334 mg PO WM [facility] Last Admin: 10/08/17 17:52 Dose: 1,334 mg Ergocalciferol (Drisdol 50,000 Intl Units Cap) 1 cap PO WED [facility] Last Admin: 10/04/17 12:48 Dose: 1 cap Fenofibrate (Tricor) 145 mg PO DAILY [facility] Last Admin: 10/08/17 09:04 Dose: 145 mg Glipizide (Glucotrol) 10 mg PO DAILY [facility] Last Admin: 10/08/17 09:04 Dose: 10 mg Hydralazine HCl (Apresoline) 25 mg PO BID [facility] Last Admin: 10/08/17 17:59 Dose: Not Given Meropenem 500 mg/ Sodium (Chloride) 50 mls @ 100 mls/hr IVPB Q12 [facility] PRN Reason: Protocol Stop: 10/12/17 14:01 Last Admin: 10/08/17 21:12 Dose: 100 mls/hr Dextrose (Dextrose 10% In Water) 500 mls @ 20 mls/hr IV .Q24H [facility] Last Admin: 10/04/17 13:22 Dose: 20 mls/hr Insulin Human NPH (Humulin N) 50 units SC QPM [facility] Last Admin: 10/08/17 17:51 Dose: Not Given Insulin Human Regular (Humulin R Low) 0 units SC ACHS [facility] PRN Reason: Protocol Last Admin: 10/08/17 21:15 Dose: Not Given Levothyroxine Sodium (Synthroid) 25 mcg PO 0600 [facility] Last Admin: 10/09/17 05:25 Dose: 25 mcg Linezolid (Zyvox) 600 mg PO BID [facility] PRN Reason: Protocol Last Admin: 10/08/17 17:52 Dose: 600 mg Loratadine (Claritin) 10 mg PO [facility] Last Admin: 10/08/17 21:13 Dose: 10 mg Metoprolol Tartrate (Lopressor) 50 mg PO QPM [facility] Last Admin: 10/08/17 17:58 Dose: 50 mg Montelukast Sodium (Singulair) 10 mg PO [facility] Last Admin: 10/08/17 21:13 Dose: 10 mg Morphine Sulfate (Morphine) 2 mg IVP Q5H PRN PRN Reason: Pain, severe (8-10) Last Admin: 10/08/17 21:16 Dose: 2 mg Multivitamins (Thera Tab) 1 tab PO DAILY [facility] Last Admin: 10/08/17 09:04 Dose: 1 tab Non-Formulary Medication (Bimatoprost [Lumigan]) 1 drp OU HS [facility] Last Admin: 10/08/17 21:13 Dose: Not Given Non-Formulary Medication (Diclofenac Sodium [Voltaren]) 1 appl TOP DAILY [facility] Last Admin: 10/08/17 09:05 Dose: Not Given Non-Formulary Medication (Salmeterol Xinafoate/Fluticaso [Advair Hfa 230-21]) 1 puff IH BID [facility] Last Admin: 10/08/17 17:59 Dose: Not Given Mboew-8-Rllq Ethyl Esters (Lovaza) 2 gm PO BID [facility] Last Admin: 10/08/17 17:52 Dose: 2 gm Ondansetron HCl (Zofran Inj) 4 mg IVP Q6H PRN PRN Reason: Nausea/Vomiting Last Admin: 10/09/17 07:47 Dose: 4 mg Oxycodone/Acetaminophen (Percocet 10/325 Mg Tab) 1 tab PO Q6H PRN PRN Reason: Pain, moderate (4-7) Last Admin: 10/09/17 05:27 Dose: 1 tab Pantoprazole Sodium (Protonix Ec Tab) 40 mg PO 0600 [facility] Last Admin: 10/09/17 05:25 Dose: 40 mg Pregabalin (Lyrica) 50 mg PO HS [facility] Last Admin: 10/08/17 21:13 Dose: 50 mg Sevelamer HCl (Renagel) 1,600 mg PO WM [facility] Last Admin: 10/08/17 17:52 Dose: 1,600 mg Sodium Chloride ([place] Nasal [place]) 1 ml NS Q2H PRN PRN Reason: Nasal congestion Last Admin: 10/07/17 12:57 Dose: 1 spr Tamsulosin HCl (Flomax) 0.4 mg PO HS [facility] Last Admin: 10/08/17 21:13 Dose: 0.4 mg Ticagrelor (Brilinta) 90 mg PO BID [facility] Last Admin: 10/03/17 18:10 Dose: 90 mg - Labs Labs: 10/08/17 07:00 10/08/17 07:00 PT 19.3 SECONDS (9.4-12.5) H 10/02/17 21:20 INR 1.68 (0.93-1.08) H 10/02/17 21:20 APTT 32.0 Seconds (25.1-36.5) 10/02/17 21:20 - Constitutional Appears: Chronically Ill - Head Exam Head Exam: NORMAL INSPECTION - Respiratory Exam Respiratory Exam: Decreased Breath Sounds - Cardiovascular Exam Cardiovascular Exam: +S1, +S2 - GI/Abdominal Exam GI & Abdominal Exam: Soft. absent: Tenderness - Extremities Exam Additional comments: right lower extremity with dressings in place Assessment and Plan - Assessment and Plan (Free Text) Plan: Assessment Right foot cellulitis with wet gangrene, R/O osteomyelitis S/P TMA POD #5, growing VRE history of bilateral healthcare-associated pneumonia history of sepsis with gastroenteritis and C. diff. associated diarrhea ESRD on HD DM obesity CAD S/P PCI retinopathy history of pancreatitis Plan continue Zyvox and Merrem can be discontinued and we are awaiting OR pathology will continue to monitor clinically
[2017-10-09] MEDS: Morphine 2 mg/ml ISec IVP PRN (16:35)
[2017-10-09] MEDS ORDERED: Morphine 2 mg/2 mL syringe IVP PRN (16:46)
--- NOTE | 2017-10-09 16:59 | CP.PCM.PN ---
Subjective - Date & Time of Evaluation Date of Evaluation: 10/09/17 Time of Evaluation: 16:56 - Subjective Subjective: Podiatry Progress Note- Dr Villanueva 52 y/o male 5 days s/p right transmetatarsal amputation with debridement of bone and all nonviable soft tissue secondary to right foot wet gangrene secondary to DM and PAD. Patient is seen resting comfortably in bed, in NAD, and AA0x3. Patient reports he is doing well. Seen after dialysis. Dressing is clean, dry, and intact without strike-through. Denies of nausea, fever, shortness of breath, chest pain or chills. Reports has his walker. Has not worked with physical therapy yet. Objective - Vital Signs/Intake and Output Vital Signs (last 24 hours): Temp Pulse Resp BP Pulse Ox 98 F 63 20 109/49 L 97 10/09/17 06:00 10/09/17 06:00 10/09/17 06:00 10/09/17 06:00 10/09/17 06:00 Intake and Output: 10/09/17 10/09/17 06:59 18:59 Intake Total 180 640 Output Total 640 Balance 180 0 - Medications Medications: Current Medications Albuterol/Ipratropium (Duoneb 3 Mg/0.5 Mg (3 Ml) Ud) 3 ml IH [id number] [facility] Last Admin: 10/09/17 13:27 Dose: 3 ml Aspirin (Ecotrin) 81 mg PO DAILY [facility] Last Admin: 10/09/17 12:52 Dose: 81 mg Atorvastatin Calcium (Lipitor) 40 mg PO DIN [facility] Last Admin: 10/09/17 16:34 Dose: 40 mg Calcium Acetate (Phoslo) 1,334 mg PO WM [facility] Last Admin: 10/09/17 16:34 Dose: 1,334 mg Ergocalciferol (Drisdol 50,000 Intl Units Cap) 1 cap PO WED [facility] Last Admin: 10/04/17 12:48 Dose: 1 cap Fenofibrate (Tricor) 145 mg PO DAILY [facility] Last Admin: 10/09/17 12:52 Dose: 145 mg Glipizide (Glucotrol) 10 mg PO DAILY [facility] Last Admin: 10/09/17 12:53 Dose: Not Given Hydralazine HCl (Apresoline) 25 mg PO BID [facility] Last Admin: 10/09/17 12:32 Dose: Not Given Meropenem 500 mg/ Sodium (Chloride) 50 mls @ 100 mls/hr IVPB Q12 [facility] PRN Reason: Protocol Stop: 10/12/17 14:01 Last Admin: 10/09/17 12:53 Dose: 100 mls/hr Dextrose (Dextrose 10% In Water) 500 mls @ 20 mls/hr IV .Q24H [facility] Last Admin: 10/04/17 13:22 Dose: 20 mls/hr Insulin Human NPH (Humulin N) 50 units SC QPM [facility] Last Admin: 10/08/17 17:51 Dose: Not Given Insulin Human Regular (Humulin R Low) 0 units SC ACHS [facility] PRN Reason: Protocol Last Admin: 10/09/17 16:34 Dose: Not Given Levothyroxine Sodium (Synthroid) 25 mcg PO 0600 [facility] Last Admin: 10/09/17 05:25 Dose: 25 mcg Linezolid (Zyvox) 600 mg PO BID [facility] PRN Reason: Protocol Last Admin: 10/09/17 12:52 Dose: 600 mg Loratadine (Claritin) 10 mg PO HS [facility] Last Admin: 10/08/17 21:13 Dose: 10 mg Metoprolol Tartrate (Lopressor) 50 mg PO QPM [facility] Last Admin: 10/08/17 17:58 Dose: 50 mg Montelukast Sodium (Singulair) 10 mg PO HS [facility] Last Admin: 10/08/17 21:13 Dose: 10 mg Morphine Sulfate (Morphine) 2 mg IVP Q5H PRN PRN Reason: Pain, severe (8-10) Multivitamins (Thera Tab) 1 tab PO DAILY [facility] Last Admin: 10/09/17 12:52 Dose: 1 tab Non-Formulary Medication (Bimatoprost [Lumigan]) 1 drp OU HS [facility] Last Admin: 10/08/17 21:13 Dose: Not Given Non-Formulary Medication (Diclofenac Sodium [Voltaren]) 1 appl TOP DAILY [facility] Last Admin: 10/09/17 12:33 Dose: Not Given Non-Formulary Medication (Salmeterol Xinafoate/Fluticaso [Advair Hfa 230-21]) 1 puff IH BID [facility] Last Admin: 10/09/17 12:34 Dose: Not Given [place]-2-Exqd Ethyl Esters (Lovaza) 2 gm PO BID [facility] Last Admin: 10/09/17 12:33 Dose: Not Given Ondansetron HCl (Zofran Inj) 4 mg IVP Q6H PRN PRN Reason: Nausea/Vomiting Last Admin: 10/09/17 07:47 Dose: 4 mg Oxycodone/Acetaminophen (Percocet 10/325 Mg Tab) 1 tab PO Q6H PRN PRN Reason: Pain, moderate (4-7) Last Admin: 10/09/17 12:52 Dose: 1 tab Pantoprazole Sodium (Protonix Ec Tab) 40 mg PO 0600 [facility] Last Admin: 10/09/17 05:25 Dose: 40 mg Pregabalin (Lyrica) 50 mg PO HS [facility] Last Admin: 10/08/17 21:13 Dose: 50 mg Sevelamer HCl (Renagel) 1,600 mg PO WM [facility] Last Admin: 10/09/17 16:34 Dose: 1,600 mg Sodium Chloride ([place] Nasal [place]) 1 ml NS Q2H PRN PRN Reason: Nasal congestion Last Admin: 10/07/17 12:57 Dose: 1 spr Tamsulosin HCl (Flomax) 0.4 mg PO [facility] Last Admin: 10/08/17 21:13 Dose: 0.4 mg Ticagrelor (Brilinta) 90 mg PO BID [facility] Last Admin: 10/03/17 18:10 Dose: 90 mg - Labs Labs: 10/09/17 09:00 10/09/17 09:00 PT 19.3 SECONDS (9.4-12.5) H 10/02/17 21:20 INR 1.68 (0.93-1.08) H 10/02/17 21:20 APTT 32.0 Seconds (25.1-36.5) 10/02/17 21:20 - Constitutional Appears: Well, Non-toxic, No Acute Distress - Extremities Exam Extremities Exam: absent: Calf Tenderness Additional comments: Right Lower extremity focused exam: Vasc: TMA flap with capillary filling time WNL; Temp gradient: warm to cool from proximal to distal, mild non-pitting edema noted on the right TMA Derm: distal TMA site flap is coapted and reapproximated with sutures and fitz. No unraveling of sutures or backing out of fitz noted. No dehiscence appreciated to the flap. No purulence drainage. Serosangious drainage noted to the right surgical site opening plantarly. There is an open large ulceration measuring approximately 10 cm x 7 cm x 2 cm on the plantar medial aspect of right foot, wound base mixture of granular and fibrotic tissue. No tracking or tunneling. No erythema or streaking. No malodor appreciated. No fluctance or abscess noted Neuro: Epicritic and protective sensation grossly absent Ortho: mild pain and tenderness with palpation to skin surrounding surgical site. Ankle AROM and passive ROM WNL - Neurological Exam Neurological Exam: Alert, Awake - Psychiatric Exam Psychiatric exam: Normal Affect, Normal Mood Assessment and Plan - Assessment and Plan (Free Text) Assessment: 52 y/o male 5 days s/p right transmetatarsal amputation with debridement of bone and all nonviable soft tissue secondary to right foot wet gangrene secondary to DM and PAD. Plan: Patient seen and evaluated along with Dr. Villanueva Discussed plan in detail with attending All questions/concerns addressed Labs, vitals, and charts reviewed. WBC=7.4 Right foot X-rays s/p right foot surgery. Impression: There has been amputation at the level of the proximal metatarsals 1 through 5. Surgical clips are seen. There is air in the soft tissues. - Packing of idoform to large plantar ulceration may micmick air in soft tissues Removed dressing and packing. Cleansed with copious amounts of saline solution. Dressed ulceration and surgical site with xeroform, fluffed gauze, abd and kerlix. No Coban or MALLORY. Restart Brilinta today Per Dr. Villanueva, "start hyperbaric chamber only without treatment" Will hold off on wound VAC during this admission c/w Multipodus boots. Patient to wear at all times while in bed. Do not WB to the right lower extremity Physical therapy- please evaluate and treat. Patient to be NWB to right lower extremity with assisting device. Intraop wound culture right foot-Vancomycin Resistant e. faecium Intraop specimen right foot- pending c/w iv abx per ID Will continue to closely follow while in house Upon discharge will follow up with Dr. Villanueva in wound care clinic Patient to keep dressing c/d/i. Do not get wet NWB to the right LE with assistive device
[2017-10-09] MEDS: Insulin Human NPH 1 UNITS/0.01 ML SC SCH (17:42)
--- NOTE | 2017-10-09 18:31 | PN ---
DATE: 10/09/2017 SUBJECTIVE: The patient is seen in the dialysis unit. He is awake, he is alert, and he comfortable. He reports his pain is controlled. He denies any fever. He denies any chills. PHYSICAL EXAMINATION: GENERAL: Middle-aged male, lying in bed. VITAL SIGNS: Blood pressure 109/49, heart rate 63, respiratory rate 20, and temperature 98. HEENT: Normocephalic, atraumatic, positive pallor. NECK: Supple, no JVD. LUNGS: Bilateral equal air entry, no rales, no rhonchi. CARDIAC: S1 and S2, regular rate and rhythm, no murmur, no rub. ABDOMEN: Obese, distended, soft, nontender, bowel sounds present. EXTREMITIES: Dressing of the right foot. INTAKE AND OUTPUT: Not charted. LABORATORY DATA: WBC 7.4, hemoglobin 8, hematocrit 25, and platelets 141. Sodium 137, potassium 3.9, chloride 96, CO2 of 32. BUN 18, creatinine 3.7. Glucose 72. Calcium 8.2. Wound culture, vancomycin resistant enterococcus. CURRENT MEDICATIONS: Apresoline 25 b.i.d., Lumigan, Brilinta on hold, Claritin 10 mg at bedtime, Drisdol, Ecotrin, Flomax, Glucotrol 10 mg daily, Lipitor, Lopressor, Lyrica, meropenem 500 every 12 hours, PhosLo, Protonix, Renagel, Synthroid, TriCor, Zofran, and Zyvox 600 b.i.d. ASSESSMENT: 1. Dry/wet gangrene of right foot, status post aggressive transmetatarsal amputation and debridement, postoperative day #5. 2. Surgical blood loss, severe anemia, status post 3 units of blood transfusion. 3. Noninsulin-dependent diabetes mellitus. 4. Hypertension. 5. Coronary artery disease, recent percutaneous transluminal coronary angioplasty and stent to the left anterior descending. 6. Hyperphosphatemia. 7. Enterococcal wound infection. 8. Peripheral vascular disease. PLAN: 1. Continue current management. 2. Stable dialysis. 3. Continue antibiotics as per ID. 4. Wound care as per Dr. Villanueva. 5. Check phosphorus levels. Eva Malclom MD [facility] # [id number]
--- NOTE | 2017-10-09 21:53 | PN ---
DATE: 10/09/2017 REFERRING PHYSICIAN: Dr. Diana Kessler. SUBJECTIVE: Subjectively, he is seen in dialysis table, sleepy, arousable. Night was unremarkable, tolerated CPAP well. No cough. No sputum production. No nausea. No vomiting. No diarrhea. Still have a right foot discomfort. OBJECTIVE: GENERAL: In no acute distress. VITAL SIGNS: Temperature is 98, heart rate 75, respiratory rate is 20, blood pressure 121/59, pulse ox 99% on room air. HEENT: Moist mucous membranes. No ulcer or thrush noted. NECK: Supple. No JVD. LUNGS: Has fair airflow with rhonchi. HEART: S1, S2. ABDOMEN: Soft, nontender, no organomegaly. EXTREMITIES: There is no edema. Right foot has a dressing. NEUROLOGIC: Sleepy, arousable. Follows simple command. MEDICATIONS: He is on hydralazine 25 mg b.i.d., also on Brilinta 90 mg twice a day, Claritin 10 mg daily, IV fluid D10 20 mL per hour which is on hold, Voltaren to affected area, vitamin D 50,000 units weekly, DuoNeb every 6 hours liten-iew-tusic, Ecotrin 81 mg daily, Flomax 0.4 mg daily, glipizide 10 mg daily, insulin coverage, Lipitor 40 mg daily, metoprolol tartrate 50 mg daily, Lovaza 2 g twice a day, Lyrica 50 mg at bedtime, meropenem 1 g IV every 12 hours, morphine 2 mg every 5 hours p.r.n., nasal saline every 2 hours p.r.n., Percocet 10/325 1 tablet every 6 hours p.r.n., Protonix 40 mg daily, Renagel with meals, Singulair 10 mg at bedtime, Synthroid 25 mcg daily, multivitamins daily, Tricor 145 mg daily, Zofran p.r.n., Zyvox 600 mg twice a day. LABORATORY DATA: Shows hemoglobin 8, hematocrit 25.2, WBC 7.4, platelet count is 141. Sodium 137, potassium 3.9, chloride 96, bicarbonate 32, BUN 18, creatinine 3.7, glucose 72, calcium is 8.2, phosphorus is 3.4. IMPRESSION AND PLAN: Chronic obstructive lung disease, obstructive sleep apnea syndrome, cardiomyopathy, coronary artery disease, pulmonary hypertension, diabetes, hypertension, peripheral vascular disease, nonhealing right foot ulcers requiring partial foot amputation, peripheral neuropathy, legally blind. Pulmonary point of view, doing okay. Encourage CPAP use. Keep head at 45 degrees. Bronchodilator, gastric prophylaxis, deep venous thrombosis prophylaxis, pain management. Out of bed to chair. Podiatry followup. Physical Therapy follow up. Thank you and we will follow with you. Jarred Escalera MD
--- NOTE | 2017-10-09 23:04 | PN ---
DATE: 10/09/2017 SUBJECTIVE: The patient was seen and examined on the bedside on 10/09/2017, looking comfortable. Mother and brother were sitting on the bedside also. Status post dialysis today. Night was unremarkable. Tolerated CPAP very well. No shortness of breath. No cough. No nausea, vomiting, diarrhea, but today the patient has episode of anxiety and according to nursing staff, he was very restless and anxious and he called his mother and brother on the bedside, but I educated him. According to him,he is claustrophobic. He is not sure he can get chamber treatment for his foot or not, but I educated him. PHYSICAL EXAMINATION: VITAL SIGNS: Temperature 98, heart rate 75, respiratory rate 20, blood pressure 120/59, pulse oximetry 99% on room air. HEENT: Head normocephalic, atraumatic. Eyes PERRLA. Extraocular muscles intact. Conjunctivae clear. Nose patent. Mucous membrane moist. NECK: Supple. No carotid bruit. No JVD or thyromegaly. CHEST: Bilaterally symmetrical. HEART: S1 and S2 positive. LUNGS: Clear to auscultation. ABDOMEN: Soft. Bowel sounds positive. No organomegaly. EXTREMITIES: No edema. No cyanosis. Right foot has dressing and is tender as per the patient. NEUROLOGICAL: The patient is sleepy, arousable. Moving all 4 extremities. No focal deficits. Obeying simple orders. MEDICATIONS: Hydralazine, Brilinta, Claritin, IV fluid, Voltaren, DuoNeb, glipizide, insulin, Lipitor, metoprolol, Lovaza, Lyrica, meropenem, Percocet, Protonix, Renagel, Singular, Synthroid, Tricor, Zofran. LABORATORY DATA: Hemoglobin 8, hematocrit 25.2, white blood cells 7.4, platelets 141. Sodium 137, BUN 18, creatinine 3.7. ASSESSMENT AND PLAN: Mr. Jason Berger, 52-year-old male with chronic obstructive lung disease, obstructive sleep apnea syndrome, cardiomyopathy, coronary artery disease, pulmonary hypertension, diabetes mellitus, hypertension, peripheral vascular disease, nonhealing right foot ulcer requiring partial foot amputation , peripheral neuropathy, diabetic neuropathy, diabetic nephropathy, diabetic retinopathy, depressed, anxiety. Psychiatry is on the case. Encouraged continuous positive airway pressure use. Legally blind. Keep head elevated at 45 degrees. Bronchodilators, gastric prophylaxis, deep vein thrombosis prophylaxis, out of bed, physical therapy. As per the patient, he do not have bowel movement from a couple of days. Lactulose ordered on p.r.n. basis plus one dose today. We will follow up. Diana Kessler MD MTDD
[2017-10-10] MEDS: Albuterol-Ipratrop 3 mg / 0.5 (3 ml) UD IH SCH ×3 (01:38→13:10)
[2017-10-10] MEDS: Levothyroxine 25 MCG TAB PO SCH (05:20)
[2017-10-10] MEDS: Pantoprazole 40 mg EC Tab PO SCH (05:20)
--- NOTE | 2017-10-10 06:40 | CP.PCM.PN ---
Subjective - Date & Time of Evaluation Date of Evaluation: 10/10/17 Time of Evaluation: 06:30 - Subjective Subjective: Alert, awake, sitting in bed, no distress,complaints of nausea and vomiting yesterday Reason for consultation and follow up:Cardiac evaluation for questionable history of vegetation on pacemaker when he was at [facility]. Admitted for right toe ulcer/gangrene. History of peripheral arterial disease, coronary artery disease with multiple stents, sick sinus syndrome with PPM, history of fall with subdural hematoma and was on Brilinta at that time. Seen and examined by me and Dr. Erickson Objective - Vital Signs/Intake and Output Vital Signs (last 24 hours): Temp Pulse Resp BP Pulse Ox 98.4 F 60 20 98/45 L 100 10/09/17 23:15 10/09/17 23:15 10/09/17 23:15 10/09/17 23:15 10/09/17 23:15 Intake and Output: 10/09/17 10/10/17 18:59 06:59 Intake Total 640 240 Output Total 640 Balance 0 240 - Medications Medications: Current Medications Albuterol/Ipratropium (Duoneb 3 Mg/0.5 Mg (3 Ml) Ud) 3 ml IH [id number] REPLACED BY [facility] Last Admin: 10/10/17 01:38 Dose: 3 ml Aspirin (Ecotrin) 81 mg PO DAILY REPLACED BY [facility] Last Admin: 10/09/17 12:52 Dose: 81 mg Atorvastatin Calcium (Lipitor) 40 mg PO DIN REPLACED BY [facility] Last Admin: 10/09/17 16:34 Dose: 40 mg Calcium Acetate (Phoslo) 1,334 mg PO WM REPLACED BY [facility] Last Admin: 10/09/17 16:34 Dose: 1,334 mg Diphenhydramine HCl (Benadryl) 25 mg PO HS PRN PRN Reason: Insomnia Last Admin: 10/09/17 22:27 Dose: 25 mg Ergocalciferol (Drisdol 50,000 Intl Units Cap) 1 cap PO WED REPLACED BY [facility] Last Admin: 10/04/17 12:48 Dose: 1 cap Fenofibrate (Tricor) 145 mg PO DAILY REPLACED BY [facility] Last Admin: 10/09/17 12:52 Dose: 145 mg Glipizide (Glucotrol) 10 mg PO DAILY REPLACED BY [facility] Last Admin: 10/09/17 12:53 Dose: Not Given Hydralazine HCl (Apresoline) 25 mg PO BID REPLACED BY [facility] Last Admin: 10/09/17 17:45 Dose: 25 mg Meropenem 500 mg/ Sodium (Chloride) 50 mls @ 100 mls/hr IVPB Q12 [facility] PRN Reason: Protocol Stop: 10/12/17 14:01 Last Admin: 10/09/17 21:23 Dose: 100 mls/hr Dextrose (Dextrose 10% In Water) 500 mls @ 20 mls/hr IV .Q24H REPLACED BY [facility] Last Admin: 10/04/17 13:22 Dose: 20 mls/hr Insulin Human NPH (Humulin N) 50 units SC QPM [facility] Last Admin: 10/09/17 17:42 Dose: Not Given Insulin Human Regular (Humulin R Low) 0 units SC ACHS [facility] PRN Reason: Protocol Last Admin: 10/09/17 21:23 Dose: Not Given Lactulose (Enulose) 30 gm PO DAILY REPLACED BY [facility] Last Admin: 10/09/17 21:22 Dose: 30 gm Levothyroxine Sodium (Synthroid) 25 mcg PO 0600 REPLACED BY [facility] Last Admin: 10/10/17 05:20 Dose: 25 mcg Linezolid (Zyvox) 600 mg PO BID [facility] PRN Reason: Protocol Last Admin: 10/09/17 21:22 Dose: 600 mg Loratadine (Claritin) 10 mg PO HS REPLACED BY [facility] Last Admin: 10/09/17 21:22 Dose: 10 mg Metoprolol Tartrate (Lopressor) 50 mg PO QPM REPLACED BY [facility] Last Admin: 10/09/17 17:45 Dose: 50 mg Montelukast Sodium (Singulair) 10 mg PO HS REPLACED BY [facility] Last Admin: 10/09/17 21:22 Dose: 10 mg Morphine Sulfate (Morphine) 2 mg IVP Q5H PRN PRN Reason: Pain, severe (8-10) Multivitamins (Thera Tab) 1 tab PO DAILY REPLACED BY [facility] Last Admin: 10/09/17 12:52 Dose: 1 tab Non-Formulary Medication (Bimatoprost [Lumigan]) 1 drp OU HS REPLACED BY [facility] Last Admin: 10/08/17 21:13 Dose: Not Given Non-Formulary Medication (Diclofenac Sodium [Voltaren]) 1 appl TOP DAILY REPLACED BY [facility] Last Admin: 10/09/17 12:33 Dose: Not Given Non-Formulary Medication (Salmeterol Xinafoate/Fluticaso [Advair Hfa 230-21]) 1 puff IH BID REPLACED BY [facility] Last Admin: 10/09/17 21:23 Dose: Not Given [id number] Ethyl Esters (Lovaza) 2 gm PO BID REPLACED BY [facility] Last Admin: 10/09/17 17:45 Dose: 2 gm Ondansetron HCl (Zofran Inj) 4 mg IVP Q6H PRN PRN Reason: Nausea/Vomiting Last Admin: 10/09/17 07:47 Dose: 4 mg Oxycodone/Acetaminophen (Percocet 10/325 Mg Tab) 1 tab PO Q6H PRN PRN Reason: Pain, moderate (4-7) Last Admin: 10/09/17 12:52 Dose: 1 tab Pantoprazole Sodium (Protonix Ec Tab) 40 mg PO 0600 REPLACED BY [facility] Last Admin: 10/10/17 05:20 Dose: 40 mg Pregabalin (Lyrica) 50 mg PO [facility] Last Admin: 10/09/17 21:22 Dose: 50 mg Sevelamer HCl (Renagel) 1,600 mg PO WM REPLACED BY [facility] Last Admin: 10/09/17 16:34 Dose: 1,600 mg Sodium Chloride ([place] Nasal [place]) 1 ml NS Q2H PRN PRN Reason: Nasal congestion Last Admin: 10/07/17 12:57 Dose: 1 spr Tamsulosin HCl (Flomax) 0.4 mg PO [facility] Last Admin: 10/09/17 21:22 Dose: 0.4 mg Ticagrelor (Brilinta) 90 mg PO BID REPLACED BY [facility] Last Admin: 10/09/17 17:46 Dose: 90 mg - Labs Labs: 10/09/17 09:00 10/09/17 09:00 PT 19.3 SECONDS (9.4-12.5) H 10/02/17 21:20 INR 1.68 (0.93-1.08) H 10/02/17 21:20 APTT 32.0 Seconds (25.1-36.5) 10/02/17 21:20 - Constitutional Appears: No Acute Distress - Eye Exam Eye Exam: Normal appearance - ENT Exam ENT Exam: Mucous Membranes Moist - Respiratory Exam Respiratory Exam: Clear to Ausculation Bilateral, NORMAL BREATHING PATTERN - Cardiovascular Exam Cardiovascular Exam: +S1, +S2 Additional comments: PPM - GI/Abdominal Exam GI & Abdominal Exam: Soft, Normal Bowel Sounds - Exam Additional comments: hemodialysis 3x a week (MWF) - Extremities Exam Additional comments: right foot wrapped with kirlex - Neurological Exam Neurological Exam: Alert, Awake, Oriented x3 - Psychiatric Exam Psychiatric exam: Normal Affect, Normal Mood - Skin Skin Exam: Dry, Warm Assessment and Plan - Assessment and Plan (Free Text) Assessment: A 52 year old male who was admitted due to right toe ulcer/gangrene.Consult was called for evaluation for questionable history of vegetation on pacemaker when he was at [facility]. History of peripheral arterial disease, coronary artery disease with multiple stents, sick sinus syndrome with PPM, history of fall with subdural hematoma and was on Brilinta at that time.(held off Brilinta for 2 weeks then resumed due to recent stent placement),resistant to Plavix. ESRD on hemodialysis, diabetes, diabetic neuropathy, diabetic nephropathy, retinopathy, COPD, history of pancreatitis, hypertriglyceridemia, CVA,spinal stenosis. Recently admitted at [facility] and recommended amputation of right leg but family refused and discharged. ECHO done 10/03/17-LVEF 60-65%, Moderate to severe AR, moderate aortic stenosis, moderate MR, moderate to severe TR Echogenic mobile structure attached to aortic valve leaflet, with same consistency of valve, can not rule out vegetation versus degenerative changes, will correlate clinically with blood cultures. Post right foot transmetatarsal amputation 10/04/17. Transfused 3 units PRBC for low hemoglobin.10/05/17.Blood cultures negative growth Plan: No distress, comfortable, Right foot wound dressing changed yesterday For hyperbaric chamber treatment per Podiatry On contact isolation Wound culture vancomycin resistant E. Faecium On IV antibiotics, ID on consult Cardiac status stable Heart rate and blood pressure controlled Glucose controlled Continue current treatment Continue current medications Fall precaution OOB to chair Physical therapy Discharge planning Will follow up Plan and treatment discussed with Dr. Erickson
[2017-10-10 08:15] VITALS: RESP 18
[2017-10-10] MEDS: Multivitamin Therapeutic Tab PO SCH (09:40)
[2017-10-10] MEDS: Omega-3-Acid Ethyl Esters 1 GM Cap PO SCH (09:40)
[2017-10-10] MEDS: DICLOFENAC SODIUM APPL TOP SCH (09:41)
[2017-10-10] MEDS: Insulin Reg-LOW-Coverage SC SCH ×2 (09:41→11:15)
[2017-10-10] MEDS: Meropenem 500 MG in Sodium Chloride 0.9% 50 ML IVPB SCH (09:42)
[2017-10-10] MEDS: FLUTICASO IH SCH (09:43)
[2017-10-10] MEDS: SALMETEROL XINAFOATE IH SCH (09:43)
[2017-10-10] MEDS: Oxycodone/Acetaminophen 10/325 mg Tab PO PRN (09:54)
[2017-10-10 14:36] VITALS: BP 110/46; PULSE 60; TEMP 98.2; O2SAT 96
--- NOTE | 2017-10-10 14:49 | PN ---
DATE: 10/10/2017 PULMONARY PROGRESS NOTE REFERRING PHYSICIAN: Diana Kessler MD SUBJECTIVE: He is lying in the bed. Night was unremarkable. Complaining of insomnia, tried CPAP anyway. Wound debridement was done today with dressing. No chest pain. No shortness of breath. No nausea. No vomiting. PHYSICAL EXAMINATION: GENERAL: In no acute distress. VITAL SIGNS: Temperature is 98, heart rate is 65, respiratory rate is 18, blood pressure 109/45, and pulse ox 99% on room air. HEENT: Moist mucous membranes. Crowded airway. Mallampati score is 4. NECK: Supple. No JVD. LUNGS: Have a fair airflow with rhonchi. HEART: S1 and S2. ABDOMEN: Soft, nontender. No organomegaly. EXTREMITIES: Right foot has a dressing. NEUROLOGICAL: Awake and alert. Follows simple command. MEDICATIONS: He is on hydralazine 25 mg twice a day, Dilaudid 25 mg at bedtime p.r.n., Brilinta 90 mg twice a day, Claritin 10 mg daily, Voltaren p.r.n. basis, vitamin D 50,000 units weekly, DuoNeb every 6 hours, Ecotrin 81 mg daily, lactulose 30 mg daily, Flomax 0.4 mg daily, glipizide 10 mg daily, insulin coverage, Lipitor 20 mg daily, metoprolol tartrate 50 mg, Lovaza 2 g twice a day, Lyrica 50 mg at bedtime, meropenem 500 mg every 12 hours, morphine 2 mg every 5 hours p.r.n.; Percocet 10/325 one tab every 6 hours p.r.n., PhosLo with meals, Protonix 40 mg daily, Renagel with meals, Singulair 10 mg daily, Synthroid 25 mcg daily, multivitamins daily, TriCor 145 mg daily, Zofran p.r.n., Zyvox 600 mg twice a day. LABORATORY DATA: Reviewed. Blood sugar is 139. Wound culture has vancomycin-resistant Enterococcus faecium. IMPRESSION AND PLAN: Chronic obstructive lung disease, obstructive sleep apnea syndrome, cardiomyopathy, coronary artery disease, pulmonary hypertension, diabetes, hypertension, peripheral vascular disease, nonhealing right foot ulcer requiring partial amputation, peripheral neuropathy, legally blind, insomnia. Pulmonary point of view, continue bronchodilator. Encouraged CPAP use. May give Ambien 5 mg at bedtime p.r.n. only. Gastric prophylaxis, deep venous thrombosis prophylaxis. Antiplatelet. Cardiology, Podiatry, Infectious Disease followup. Nephrology followup. Out of bed to chair. Physical therapy. Thank you and we will follow with you. Jarred Escalera MD
--- NOTE | 2017-10-10 16:51 | PN ---
DATE: 10/10/2017 SUBJECTIVE: The patient is currently seen lying comfortable in bed on 5R. He is 6 days status post a right TMA. Wound cultures are growing out VRE. The patient will need to remain on antibiotic therapy for a total of 6 weeks. He states that post placement of a PICC line today, he will be transferred to [facility] to receive dialysis, rehabilitation and IV antibiotic therapy. MEDICATIONS: Medication list reviewed. The patient is on Ambien, Apresoline, Benadryl, Lumigan, Brilinta, Claritin, Voltaren, vitamin D, DuoNeb, Ecotrin, Enulose, Flomax, Glucotrol, Insulin, Lipitor, Lopressor, Lovaza, Lyrica, meropenem, morphine, [place] nasal spray, Percocet, PhosLo, Protonix, Renagel, Advair HFA, Singulair, Synthroid, Thera-Tabs, Tricor, Zofran and Zyvox. OBJECTIVE: INTAKE/OUTPUT: Intake is 880, output is 640 plus dialysis. VITAL SIGNS: Blood pressure 110/46, temperature 98.2, respiratory rate of 18 with a pulse of 60. HEENT: Shows him to be normocephalic, atraumatic. Conjunctivae remain pale. Sclerae nonicteric. NECK: Supple. No neck vein distention. CHEST: Clear to auscultation and percussion. No rales, rhonchi or wheezing. CARDIOVASCULAR: Shows a regular rate and rhythm with permanent pacemaker. /AI/MR/TR. No S3, no S4. No rub. ABDOMEN: Soft. Bowel sounds are normal. EXTREMITIES: Show a dressing, which is intact and dry over his right lower extremity in the area of the right TMA. he has a left upper extremity AV fistula. LABORATORY DATA AND IMAGING: CBC: White blood cell count yesterday predialysis 7.4, hemoglobin 8, stable. Platelet count is 141,000. Chemistries showed normal electrolytes. BUN 18 with a creatinine of 3.7, glucose was 72, calcium 8.2, phosphorus 3.4. Microbiology: Right surgical foot wound cultures are positive for VRE. Blood bank: The patient is status post transfusion of total of 3 units of packed red blood cells. The patient did receive a transfusion yesterday. ASSESSMENT: 1. End-stage renal disease. The patient will continue Monday, Monday, Monday dialysis. 2. History of severe peripheral vascular disease, status post right transmetatarsal amputation, postop day #6. Wound cultures are positive for vancomycin-resistant Enterococcus. The patient will likely continue a 6-week course of antibiotics. He will be transferred to [facility] post placement of a peripherally inserted central catheter line in his right upper extremity. He will need local wound care. He will need physical therapy and he will receive dialysis at [facility]. 3. History of anemia. The patient is on maximum Aranesp dose. The patient was transfused yesterday. We will follow his labs in [facility]. 4. History of insulin-dependent diabetes mellitus. Insulin control is acceptable. 5. History of secondary hyperparathyroidism. Phosphorus, calcium levels are normal. 6. Status post placement of a permanent pacemaker with symptomatic bradycardia with valvular heart disease, all stable. 7. History of a recent subdural hematoma secondary to fall. This is stable with no ongoing issues. 8. History of obstructive sleep apnea, continuous positive airway pressure therapy. PLAN: 1. Next hemodialysis will likely take place in [facility]. 2. Continue antibiotic therapy under the guidance of ID. He will likely need a prolonged course of antibiotic therapy for the VRE of the wound. 3. Continue local wound care, status post right TMA. 4. Continue all dietary restrictions. 5. I will actually follow the patient weekly in [facility] on dialysis. Toy Martinez MD
--- NOTE | 2017-10-10 17:42 | CP.PCM.PN ---
<Ismael Jeffers - Last Filed: 10/10/17 17:42> Subjective - Date & Time of Evaluation Date of Evaluation: 10/10/17 Time of Evaluation: 17:36 - Subjective Subjective: Podiatry Progress Note- Dr Villanueva/Dr. Quevedo 52 y/o male 6 days s/p right transmetatarsal amputation with debridement of bone and all nonviable soft tissue secondary to right foot wet gangrene secondary to DM and PAD. Patient is seen resting comfortably in bed, in NAD, and AA0x3. Patient reports he is doing well. Dressing is intact with sangious strikethrough. Reports there was no blood on the dressing until he did physical therapy today in which he accidentally put weight on the right lower extremity. Denies of nausea, fever, shortness of breath, chest pain or chills. Objective - Vital Signs/Intake and Output Vital Signs (last 24 hours): Temp Pulse Resp BP Pulse Ox 98.2 F 60 18 110/46 L 96 10/10/17 14:00 10/10/17 14:00 10/10/17 14:00 10/10/17 14:00 10/10/17 14:00 Intake and Output: 10/10/17 10/10/17 06:59 18:59 Intake Total 240 Balance 240 - Medications Medications: Current Medications Albuterol/Ipratropium (Duoneb 3 Mg/0.5 Mg (3 Ml) Ud) 3 ml IH [id number] [facility] Last Admin: 10/10/17 13:10 Dose: 3 ml Aspirin (Ecotrin) 81 mg PO DAILY [facility] Last Admin: 10/10/17 09:40 Dose: 81 mg Atorvastatin Calcium (Lipitor) 40 mg PO DIN [facility] Last Admin: 10/09/17 16:34 Dose: 40 mg Calcium Acetate (Phoslo) 1,334 mg PO WM [facility] Last Admin: 10/10/17 13:21 Dose: 1,334 mg Diphenhydramine HCl (Benadryl) 25 mg PO HS PRN PRN Reason: Insomnia Last Admin: 10/09/17 22:27 Dose: 25 mg Ergocalciferol (Drisdol 50,000 Intl Units Cap) 1 cap PO WED [facility] Last Admin: 10/04/17 12:48 Dose: 1 cap Fenofibrate (Tricor) 145 mg PO DAILY [facility] Last Admin: 10/10/17 09:41 Dose: 145 mg Glipizide (Glucotrol) 10 mg PO DAILY [facility] Last Admin: 10/10/17 09:41 Dose: Not Given Hydralazine HCl (Apresoline) 25 mg PO BID [facility] Last Admin: 10/10/17 09:40 Dose: Not Given Meropenem 500 mg/ Sodium (Chloride) 50 mls @ 100 mls/hr IVPB Q12 [facility] PRN Reason: Protocol Stop: 10/12/17 14:01 Last Admin: 10/10/17 09:42 Dose: 100 mls/hr Dextrose (Dextrose 10% In Water) 500 mls @ 20 mls/hr IV .Q24H [facility] Last Admin: 10/04/17 13:22 Dose: 20 mls/hr Insulin Human NPH (Humulin N) 50 units SC QPM [facility] Last Admin: 10/09/17 17:42 Dose: Not Given Insulin Human Regular (Humulin R Low) 0 units SC ACHS [facility] PRN Reason: Protocol Last Admin: 10/10/17 11:15 Dose: Not Given Lactulose (Enulose) 30 gm PO DAILY [facility] Last Admin: 10/10/17 09:41 Dose: Not Given Levothyroxine Sodium (Synthroid) 25 mcg PO 0600 [facility] Last Admin: 10/10/17 05:20 Dose: 25 mcg Linezolid (Zyvox) 600 mg PO BID [facility] PRN Reason: Protocol Last Admin: 10/10/17 09:40 Dose: 600 mg Loratadine (Claritin) 10 mg PO HS [facility] Last Admin: 10/09/17 21:22 Dose: 10 mg Metoprolol Tartrate (Lopressor) 50 mg PO QPM [facility] Last Admin: 10/09/17 17:45 Dose: 50 mg Montelukast Sodium (Singulair) 10 mg PO [facility] Last Admin: 10/09/17 21:22 Dose: 10 mg Morphine Sulfate (Morphine) 2 mg IVP Q5H PRN PRN Reason: Pain, severe (8-10) Multivitamins (Thera Tab) 1 tab PO DAILY [facility] Last Admin: 10/10/17 09:40 Dose: 1 tab Non-Formulary Medication (Bimatoprost [Lumigan]) 1 drp OU [facility] Last Admin: 10/08/17 21:13 Dose: Not Given Non-Formulary Medication (Diclofenac Sodium [Voltaren]) 1 appl TOP DAILY [facility] Last Admin: 10/10/17 09:41 Dose: Not Given Non-Formulary Medication (Salmeterol Xinafoate/Fluticaso [Advair Hfa 230-21]) 1 puff IH BID [facility] Last Admin: 10/10/17 09:43 Dose: Not Given [id number]-[id number] Ethyl Esters (Lovaza) 2 gm PO BID [facility] Last Admin: 10/10/17 09:40 Dose: 2 gm Ondansetron HCl (Zofran Inj) 4 mg IVP Q6H PRN PRN Reason: Nausea/Vomiting Last Admin: 10/09/17 07:47 Dose: 4 mg Oxycodone/Acetaminophen (Percocet 10/325 Mg Tab) 1 tab PO Q6H PRN PRN Reason: Pain, moderate (4-7) Last Admin: 10/10/17 09:54 Dose: 1 tab Pantoprazole Sodium (Protonix Ec Tab) 40 mg PO 0600 [facility] Last Admin: 10/10/17 05:20 Dose: 40 mg Pregabalin (Lyrica) 50 mg PO HS [facility] Last Admin: 10/09/17 21:22 Dose: 50 mg Sevelamer HCl (Renagel) 1,600 mg PO WM [facility] Last Admin: 10/10/17 13:21 Dose: 1,600 mg Sodium Chloride ([place] Nasal [place]) 1 ml NS Q2H PRN PRN Reason: Nasal congestion Last Admin: 10/07/17 12:57 Dose: 1 spr Tamsulosin HCl (Flomax) 0.4 mg PO HS [facility] Last Admin: 10/09/17 21:22 Dose: 0.4 mg Ticagrelor (Brilinta) 90 mg PO BID [facility] Last Admin: 10/10/17 09:40 Dose: 90 mg Zolpidem Tartrate (Ambien) 5 mg PO HS PRN; Protocol PRN Reason: Insomnia - Labs Labs: 10/09/17 09:00 10/09/17 09:00 PT 19.3 SECONDS (9.4-12.5) H 10/02/17 21:20 INR 1.68 (0.93-1.08) H 10/02/17 21:20 APTT 32.0 Seconds (25.1-36.5) 10/02/17 21:20 - Constitutional Appears: Well, Non-toxic, No Acute Distress - Extremities Exam Extremities Exam: absent: Calf Tenderness Additional comments: Right Lower extremity focused exam: Vasc: TMA flap with capillary filling time WNL; Temp gradient: warm to cool from proximal to distal, mild non-pitting edema noted on the right TMA Derm: distal TMA site flap is coapted and reapproximated with sutures and fitz. No unraveling of sutures or backing out of fitz noted. No dehiscence appreciated to the flap. No purulence drainage. Serosangious drainage noted to the right surgical site opening plantarly. There is an open large ulceration measuring approximately 10 cm x 7 cm x 2 cm on the plantar medial aspect of right foot, wound base mixture of granular and fibrotic tissue. No tracking or tunneling. No erythema or streaking. No malodor appreciated. No fluctance or abscess noted Neuro: Epicritic and protective sensation grossly absent Ortho: mild pain and tenderness with palpation to skin surrounding surgical site. Ankle AROM and passive ROM WNL - Neurological Exam Neurological Exam: Alert, Awake, Oriented x3 - Psychiatric Exam Psychiatric exam: Normal Affect, Normal Mood Assessment and Plan - Assessment and Plan (Free Text) Assessment: 52 y/o male 6 days s/p right transmetatarsal amputation with debridement of bone and all nonviable soft tissue secondary to right foot wet gangrene secondary to DM and PAD. Plan: Patient seen and evaluated along with Dr. Quevedo Discussed plan in detail with attending Dr Quevedo All questions/concerns addressed Labs, vitals, and charts reviewed. WBC=7.4 on 10/09 Right foot X-rays s/p right foot surgery. Impression: There has been amputation at the level of the proximal metatarsals 1 through 5. Surgical clips are seen. There is air in the soft tissues. - Packing of idoform to large plantar ulceration may micmick air in soft tissues Cleansed with copious amounts of saline solution. Dressed ulceration and surgical site with xeroform, fluffed gauze, abd and kerlix. No Coban or MALLORY. d/c hyperbaric Will hold off on wound VAC during this admission c/w Multipodus boots. Patient to wear at all times while in bed. Do not WB to the right lower extremity Physical therapy- please evaluate and treat. Patient to be NWB to right lower extremity with assisting device. Intraop wound culture right foot-Vancomycin Resistant e. faecium Intraop specimen right foot- pending c/w iv abx per ID Upon discharge will follow up with Dr. Villanueva in wound care clinic Patient to keep dressing c/d/i. Do not get wet NWB to the right LE with assistive device Nursing orders: Please keep dressing clean dry and intact. Do not get wet. Do not change unless dressing is wet. Will evaluate patient and change dressing in wound care by Dr. Villanueva Patient will follow up with Dr. Villanueva at [facility] on at 8 :30am on October 12 2017 NWB to the right LE with assistive device If strikethrough or dressing gets wet, please clean right foot with copious amounts of saline solution. Pat dry then use xeroform over the plantar wound, then fluffed up gauze, dsd, abd abd TMA surgical site, put adaptic, dsd, abd. Entire right foot, use kerlix to hold in place DO NOT USE MALLORY OR COBAN. Pt has PAD. Thank you Wear multipodus boots at all times when in bed. <Adria Quevedo - Last Filed: 10/11/17 16:08> Objective - Vital Signs/Intake and Output Vital Signs (last 24 hours): Temp Pulse Resp BP Pulse Ox 98.2 F 60 18 110/46 L 96 10/10/17 14:00 10/10/17 14:00 10/10/17 14:00 10/10/17 14:00 10/10/17 14:00 - Labs Labs: 10/09/17 09:00 10/09/17 09:00 PT 19.3 SECONDS (9.4-12.5) H 10/02/17 21:20 INR 1.68 (0.93-1.08) H 10/02/17 21:20 APTT 32.0 Seconds (25.1-36.5) 10/02/17 21:20 Attending/Attestation - Attestation I have personally seen and examined this patient.: Yes I have fully participated in the care of the patient.: Yes I have reviewed all pertinent clinical information, including history, physical exam and plan: Yes
--- NOTE | 2017-10-11 06:10 | DS ---
date 10/10/17 CHIEF COMPLAINT: Foot pain. HISTORY OF PRESENT ILLNESS: The patient was seen and examined on the bedside on 10/10/2017. Mr. Jason Berger is a 52-year-old male with past medical history of end-stage renal disease on hemodialysis 3 times a week, diabetic nephropathy, diabetic retinopathy, diabetic neuropathy, history of congestive heart failure, was sent to the emergency department by Dr. Villanueva, fire support specialist, because of pain in the foot and gangrenous changes. No fever, no chills. No headache, no dizziness. Re-admitted the patient. Did chest x-ray, foot x-ray. The patient went for surgery. The patient has osteomyelitis, seen by Dr. Martinez, certified wellness program coordinator; Dr. Escalera, axle polisher; Dr. Ercikson, hangersmith. Dr. Pj Quinteros was the infectious disease doctor. After surgery, the patient got change of dressing, felt better. Needs at least 4 to 6 weeks of IV antibiotics for foot osteomyelitis. Because of the patient's history of coronary artery disease, hemorrhagic stroke, and is on blood thinner, we are afraid of patient's fall. Physical therapy recommended, subacute rehab, and the patient will come 3 times a week to see Dr. Villanueva for dressing change. Discharged the patient to [facility] for antibiotics. The patient will get dialysis and will get wound care. PAST MEDICAL HISTORY: As above. History of anemia, status post blood transfusion, congestive heart failure, hypertension, pacemaker, peripheral vascular disease, asthma, bronchitis, COPD, pneumonia, history of obstructive sleep apnea syndrome, using BiPAP, CVA, dizziness, TIA, blurring of vision, epistaxis, nephrolithiasis, diabetes mellitus, hypothyroidism, cellulitis of the lower extremities, back pain, fracture, spinal stenosis, CKD. FAMILY HISTORY: Father noncontributory. Mother and brother have renal insufficiency and getting hemodialysis. HABITS: Never smoked. No drugs. No ethanol. ALLERGIES: THE PATIENT IS ALLERGIC WITH INSULIN ASPART, MOXIFLOXACIN, PENICILLIN, AND REGULAR INSULIN PER THE PATIENT. HOME MEDICATIONS: Reviewed by me. REVIEW OF SYSTEMS: The patient was seen and examined at bedside on 10/10/2017 and looking comfortable. No nausea, vomiting or diarrhea. No hematuria or hematochezia. No headache or dizziness. No chest pain or palpitation. Looking comfortable. Still having pain in the foot, especially during the time of change of dressing. Sometimes feeling attack of anxiousness and panic attack. Last evening stat was noted by me. PHYSICAL EXAMINATION: VITAL SIGNS: Temperature 98, heart rate 65, respiratory rate 18 and blood pressure 109/45, pulse oximetry 99% on room air. HEENT: Head normocephalic, atraumatic. Eyes PERRLA. Extraocular muscles intact. Conjunctivae clear. Nose patent. Mucous membrane moist. NECK: Supple. No carotid bruit. No JVD or thyromegaly. CHEST: Bilaterally symmetrical. HEART: S1 and S2 positive. LUNGS: Clear to auscultation. ABDOMEN: Soft. Bowel sounds positive. No organomegaly. EXTREMITIES: Right foot has dressing. Left leg, no edema, no cyanosis. NEUROLOGICAL: The patient is awake, alert. follows simple commands. MEDICATIONS: Hydralazine, Dilaudid, Brilinta, Claritin, Voltaren gel, vitamin D, DuoNeb, lactulose, Flomax, glipizide, insulin coverage, metoprolol, Lovaza, Lyrica, meropenem, morphine every 5 hours, Percocet 10/325 every 6 hours, PhosLo with meals, Protonix 40 mg daily, Renagel with meals, Singulair 10 mg, Synthroid 25, TriCor, Zofran, Zyvox. LABORATORY DATA: The patient's blood sugar is high. Wound cultures has vancomycin-resistant Enterococcus faecalis. ASSESSMENT AND PLAN: The patient has history of chronic obstructive lung disease, sleep apnea syndrome, cardiomyopathy, coronary artery disease, pulmonary hypertension, diabetes mellitus, peripheral vascular disease, right foot ulcers, status post amputation of that part of the leg. Gastrointestinal and deep venous thrombosis prophylaxes. Repeat labs. Encourage CPAP. We will follow up. Diana Kessler MD RACHEL
--- NOTE | 2017-10-11 23:16 | PN ---
DATE: 10/10/2017 PHYSICAL EXAMINATION: VITAL SIGNS: Temperature 98, blood pressure is 112/70, respiratory rate 16. HEENT: Unremarkable. NECK: Supple. LUNGS: Have decreased breath sounds. HEART: Normal S1 and S2. ABDOMEN: Soft and nontender. LABORATORY EXAMINATION: Noted. Patient was discharged yesterday upon recommendations that were made. This progress note is from yesterday 10/10/2017. ASSESSMENT AND PLAN: This is a 52-year-old with right foot cellulitis, status post transmetatarsal amputation with cultures are noted. Pathology is reviewed and recommendations were made. Jaspreet Forbes MD
== END 2017-10-10 18:03 | DRG 239 ==
LOC: ED 19:40 → ERH 23:32 → 5RNO 10-03 01:04
PROVIDERS: ADMIT Internal Medicine; ATTEND Internal Medicine
PROC: 5A09357 Assistance with Respiratory Ventilation, Less than 24 Consecutive Hours, Continuous Positive Airway Pressure (ICD-10-PCS; 2017-10-03)
PROC: 0Y6M0Z5 Detachment at Right Foot, Complete 2nd Ray, Open Approach (ICD-10-PCS; 2017-10-04)
PROC: 0Y6M0Z6 Detachment at Right Foot, Complete 3rd Ray, Open Approach (ICD-10-PCS; 2017-10-04)
PROC: 0Y6M0Z7 Detachment at Right Foot, Complete 4th Ray, Open Approach (ICD-10-PCS; 2017-10-04)
PROC: 0Y6M0Z8 Detachment at Right Foot, Complete 5th Ray, Open Approach (ICD-10-PCS; 2017-10-04)
PROC: 0QBL0ZZ Excision of Right Tarsal, Open Approach (ICD-10-PCS; 2017-10-04)
PROC: 5A1D70Z Performance of Urinary Filtration, Intermittent, Less than 6 Hours Per Day (ICD-10-PCS; 2017-10-04)
PROC: 0Y6M0Z9 Detachment at Right Foot, Partial 1st Ray, Open Approach (ICD-10-PCS; principal; 2017-10-04 16:30)
PROC: 30233N1 Transfusion of Nonautologous Red Blood Cells into Peripheral Vein, Percutaneous Approach (ICD-10-PCS; 2017-10-05)
PROC: 5A1D70Z Performance of Urinary Filtration, Intermittent, Less than 6 Hours Per Day (ICD-10-PCS; 2017-10-06)
PROC: 5A1D70Z Performance of Urinary Filtration, Intermittent, Less than 6 Hours Per Day (ICD-10-PCS; 2017-10-09)
PROC: 02HV33Z Insertion of Infusion Device into Superior Vena Cava, Percutaneous Approach (ICD-10-PCS; 2017-10-10)
PROC: B548ZZA Ultrasonography of Superior Vena Cava, Guidance (ICD-10-PCS; 2017-10-10)
DX: E11.52 Type 2 diabetes mellitus with diabetic peripheral angiopathy with gangrene (principal); N18.6 End stage renal disease; I13.2 Hypertensive heart and chronic kidney disease with heart failure and with stage 5 chronic kidney disease, or end stage renal disease; D62 Acute posthemorrhagic anemia; M86.171 Other acute osteomyelitis, right ankle and foot; L03.115 Cellulitis of right lower limb; N25.81 Secondary hyperparathyroidism of renal origin; E11.69 Type 2 diabetes mellitus with other specified complication; Z98.49 Cataract extraction status, unspecified eye; D63.1 Anemia in chronic kidney disease; E03.9 Hypothyroidism, unspecified; I27.20 Pulmonary hypertension, unspecified; I50.9 Heart failure, unspecified; J44.9 Chronic obstructive pulmonary disease, unspecified; K21.9 Gastro-esophageal reflux disease without esophagitis; L97.519 Non-pressure chronic ulcer of other part of right foot with unspecified severity; I25.5 Ischemic cardiomyopathy; N40.0 Benign prostatic hyperplasia without lower urinary tract symptoms; Z79.4 Long term (current) use of insulin; E11.42 Type 2 diabetes mellitus with diabetic polyneuropathy; E11.65 Type 2 diabetes mellitus with hyperglycemia; E11.21 Type 2 diabetes mellitus with diabetic nephropathy; E11.22 Type 2 diabetes mellitus with diabetic chronic kidney disease; E11.319 Type 2 diabetes mellitus with unspecified diabetic retinopathy without macular edema; E11.621 Type 2 diabetes mellitus with foot ulcer; E66.9 Obesity, unspecified; E78.1 Pure hyperglyceridemia; E83.39 Other disorders of phosphorus metabolism; F40.240 Claustrophobia; G47.00 Insomnia, unspecified; G47.33 Obstructive sleep apnea (adult) (pediatric); H54.8 Legal blindness, as defined in USA; I08.3 Combined rheumatic disorders of mitral, aortic and tricuspid valves; I25.10 Atherosclerotic heart disease of native coronary artery without angina pectoris; I25.2 Old myocardial infarction; Z86.73 Personal history of transient ischemic attack (TIA), and cerebral infarction without residual deficits; Z87.01 Personal history of pneumonia (recurrent); Z87.440 Personal history of urinary (tract) infections; Z87.442 Personal history of urinary calculi; Z99.2 Dependence on renal dialysis; Z95.5 Presence of coronary angioplasty implant and graft; Z95.0 Presence of cardiac pacemaker; Z91.19 Patient's noncompliance with other medical treatment and regimen; Z90.49 Acquired absence of other specified parts of digestive tract; Z89.431 Acquired absence of right foot; Z83.3 Family history of diabetes mellitus; Z82.49 Family history of ischemic heart disease and other diseases of the circulatory system; Z87.19 Personal history of other diseases of the digestive system; Z68.31 Body mass index [BMI] 31.0-31.9, adult; E11.649 Type 2 diabetes mellitus with hypoglycemia without coma

== ENCOUNTER 2017-10-16 12:07 | Inpatient (IN) | payer MEDICARE, OTHER ==
[2017-10-16 12:18] VITALS: BMI 30.8
--- NOTE | 2017-10-16 12:40 | ED PDOC ---
Arrival/HPI - General Chief Complaint: Lower Extremity Problem/Injury Time Seen by Provider: 10/16/17 12:19 Historian: Patient - History of Present Illness Narrative History of Present Illness (Text): 10/16/17 12:35 A 52 year old male, whose past medical history includes ESRD on dialysis ( sessions //Mon), CHF, COPD, diabetes, hypertension, asthma, 4 stents, pacemaker, is brought into the emergency department via EMS from skilled nursing for admission as per Dr. Villanueva's request. Patient was sent in by Dr. Villanueva for gangrene to the right foot and bone exposure s/p amputation of the 5 digits on the right foot. Dr. Villanueva requests Dr. Urrutia and Dr. Forbes on consult for admission and BKA. Patient reports that he was prescribed Vancomycin. The patient denies fevers, chills, headache, dizziness, sore throat , cough, chest pain, shortness of breath, dyspnea on exertion, abdominal pain, nausea, vomiting, diarrhea, neck/back pain, urinary/bowel changes or any other complaint. PMD/ Neurologist: Dr. Potter Aviation Warfare Systems Operator: Dr. Erickson Ferryboat Operator: Dr. Villanueva Time/Duration: Prior to Arrival Symptom Onset: Sudden Symptom Course: Unchanged Activities at Onset: Rest, Light Context: Home ([facility]) Past Medical History - Provider Review Nursing Documentation Reviewed: Yes - Past History Past History: No Previous - Infectious Disease Hx of Infectious Diseases: None - Tetanus Immunization Tetanus Immunization: Up to Date - Reproductive Currently Lactating: No - Cardiac Hx Pacemaker: Yes - Pulmonary Hx Chronic Obstructive Pulmonary Disease (COPD): Yes - Neurological HX Cerebrovascular Accident: Yes - HEENT Hx HEENT Disorder: Yes (BILATERAL EYE WITH BLURRY VISION) Hx Cataracts: Yes (HAD SX 05/29/12) Hx Epistaxis: Yes Other/Comment: left eye cornea transplant,RENAL RETINOPATHY, glasses - Renal Hx Renal Failure: Yes - Endocrine/Metabolic Hx Diabetes Mellitus Type 1: Yes Hx Diabetes Mellitus Type 2: Yes Hx Hypothyroidism: Yes - Hematological/Oncological Hx Cancer: No - Integumentary Hx Dermatological Disorder: Yes Hx Cellulitis: Yes - Musculoskeletal/Rheumatological Hx Arthritis: Yes - Gastrointestinal Hx Gastrointestinal Disorders: Yes Hx Gall Bladder Disease: Yes (CHOLECYSTECTOMY) Hx Gastroesophageal Reflux: Yes Hx Liver Failure: Yes (CKD) Hx Pancreatitis: Yes - Genitourinary/Gynecological Hx Genitourinary Disorders: Yes (esrd on HD MWF) Hx Hematuria: Yes Hx Prostate Problems: Yes Hx Urinary Tract Infection: Yes - Psychiatric Hx Psychophysiologic Disorder: Yes Hx Anxiety: Yes Hx Depression: No Hx Substance Use: No - Surgical History Hx Mastectomy: No - Anesthesia Hx Anesthesia: Yes Hx Anesthesia Reactions: No Hx Malignant Hyperthermia: No - Suicidal Assessment Feels Threatened In Home Enviroment: No Family/Social History - Physician Review Nursing Documentation Reviewed: Yes Family/Social History: No Known Family HX Smoking Status: Never Smoked Hx Alcohol Use: No Hx Substance Use: No Hx Substance Use Treatment: No Allergies/Home Meds Allergies/Adverse Reactions: Allergies insulin aspart [From Novolog] Allergy (Intermediate, Verified 10/02/17 19:52) RASH ANY INSULIN THAT STARTS WITH NOV- moxifloxacin Allergy (Intermediate, Verified 10/02/17 19:52) RASH Penicillins Allergy (Intermediate, Verified 10/02/17 19:52) RASH insulin regular [From Novolin R Regular U-100 Insuln] Allergy (Verified 19:52) ITCHING Home Medications: Home Meds Medication Instructions Recorded Confirmed Diclofenac Sodium [Voltaren] 1 appl TOP DAILY 06/14/17 10/02/17 Ergocalciferol (Vitamin D2) 50,000 unit PO WED 06/16/17 10/02/17 [Vitamin D2] Bimatoprost [Lumigan] 1 drp OU HS 07/05/17 10/02/17 Salmeterol Xinafoate/Fluticaso 1 puff IH BID 07/05/17 10/02/17 [Advair Hfa 230-21] Pregabalin [Lyrica] 50 mg PO HS 07/25/17 10/02/17 Metoprolol Tartrate [Lopressor] 50 mg PO QPM 09/12/17 10/02/17 Review of Systems - Physician Review All systems were reviewed & negative as marked: Yes - Review of Systems Constitutional: absent: Fevers, Night Sweats ENT: absent: Sore Throat Respiratory: absent: SOB, Cough Cardiovascular: absent: Chest Pain, RODRIGUES Gastrointestinal: absent: Abdominal Pain, Stool Changes, Diarrhea, Nausea, Vomiting Genitourinary Male: absent: Urinary Output Changes Musculoskeletal: Other (Gangrene and bone exposure on right foot. ). absent: Back Pain, Neck Pain Neurological: absent: Headache, Dizziness Physical Exam Vital Signs Reviewed: Yes Vital Signs Temp Pulse Resp BP Pulse Ox 10/16/17 14:41 65 18 110/50 L 100 10/16/17 12:42 98.8 F 72 22 140/66 100 Temperature: Afebrile Blood Pressure: Normal Pulse: Regular Respiratory Rate: Normal Appearance: Positive for: Well-Appearing, Non-Toxic, Comfortable Pain Distress: None Mental Status: Positive for: Alert and Oriented X 3 - Systems Exam Head: Present: Atraumatic, Normocephalic Pupils: Present: PERRL Extroacular Muscles: Present: EOMI Conjunctiva: Present: Normal Mouth: Present: Moist Mucous Membranes Neck: Present: Normal Range of Motion Respiratory/Chest: Present: Clear to Auscultation, Good Air Exchange. No: Respiratory Distress, Accessory Muscle Use Cardiovascular: Present: Regular Rate and Rhythm, Normal S1, S2. No: Murmurs Abdomen: No: Tenderness, Distention, Peritoneal Signs Back: Present: Normal Inspection Upper Extremity: Present: Normal Inspection. No: Cyanosis, Edema Lower Extremity: Present: Other (Right foot: black/brown color to the base of the stump. ) Neurological: Present: GCS=15, CN II-XII Intact, Speech Normal Skin: Present: Warm, Dry, Normal Color. No: Rashes Psychiatric: Present: Alert, Oriented x 3, Normal Insight, Normal Concentration Medical Decision Making ED Course and Treatment: 10/16/17 12:41 Impression: A 52 year old male presents to the emergency department for admission as per Dr. Villanueva's request s/p amputation and further evaluation of gangrene and bone exposure to right foot. Plan: -- EKG -- Chest X-ray -- Labs -- Blood Culture -- Reassess and disposition Progress Notes: 10/16/17 12:41: Case discussed in detail with Dr. Villanueva who will follow on consult. Chest X-ray Dictator : Robbie Flor MD Report Date : 10/16/2017 13:24:43 IMPRESSION: No active disease. 10/16/17 13:33 EKG: Ordered, reviewed, and independently interpreted the EKG. Rate : 74 BPM Rhythm : Pacemaker 10/16/17 14:02: Case discussed in detail with Dr. Potter, agrees with admission and accepts patient to his service. Patient insists on switching his PMD to Dr. Potter and not Dr. Kessler. Both were made aware of this request. Dr. Potter was also requested as consult for Renal. Patient needs dialysis today so we arranged for Dialysis with Dr. Potter. Vancomycin and Meropenem will given after dialysis. - Lab Interpretations Lab Results: 10/16/17 13:30 10/16/17 13:30 Lab Results 10/16/17 13:30: Sodium 136, Chloride 97 L, Potassium 4.9, Carbon Dioxide 28, Anion Gap 16, BUN 38 H, Creatinine 6.9 H, Est GFR ( Amer) 10, Est GFR ( Non-Af Amer) 8, Random Glucose 139 H, Calcium 8.5, Phosphorus 3.2, Magnesium 2.2 , Total Bilirubin 0.8, AST 42, ALT 16, Alkaline Phosphatase 60, Total Protein 6.8, Albumin 2.7 L, Globulin 4.1, Albumin/Globulin Ratio 0.7 L 10/16/17 13:30: pO2 148 H, VBG pH 7.42, VBG pCO2 48.0, VBG HCO3 31.1 H, VBG Total CO2 32.6 H, VBG O2 Sat (Calc) 99.0 H, VBG Base Excess 5.5 H, VBG Potassium 4.8, Sodium 134.0, Chloride 103.0, Glucose 139 H, Lactate 1.7, FiO2 21.0, Venous Blood Potassium 4.8 10/16/17 13:30: PT 20.1, INR 1.73, APTT 33.4 10/16/17 13:30: WBC 8.5, RBC 2.52 L, Hgb 7.3 L, Hct 23.4 L, MCV 92.9 D, MCH 29.0, MCHC 31.2, RDW 19.1 H, Plt Count 105 L, MPV 10.4, Gran % 74.7 H, Lymph % ( Auto) 16.8 L, Rusk % (Auto) 5.8, Eos % (Auto) 2.5, Baso % (Auto) 0.2, Gran # 6.33, Lymph # (Auto) 1.4, Rusk # (Auto) 0.5, Eos # (Auto) 0.2, Baso # (Auto) 0.02 I have reviewed the lab results: Yes - RAD Interpretation Radiology Orders: 10/16/17 12:37 CXR [CHEST PORTABLE] [RAD] Stat - EKG Interpretation Interpreted by ED Physician: Yes Type: 12 lead EKG - Medication Orders Current Medication Orders: Meropenem 250 mg/ Sodium (Chloride) 100 mls @ 100 mls/hr IVPB Q12H CARLOS PRN Reason: Protocol Stop: 10/23/17 14:46 Linezolid (Zyvox 600mg/300ml D5w) 600 mg in 300 mls @ 200 mls/hr IVPB Q12 CARLOS PRN Reason: Protocol Stop: 10/23/17 22:01 Discontinued Medications Meropenem (Merrem Iv 1 Gm Premix) 50 mls @ 100 mls/hr IVPB STAT STA PRN Reason: Protocol Stop: 10/16/17 13:23 Last Admin: 10/16/17 15:17 Dose: 100 mls/hr eMAR Start Stop Document 10/16/17 15:17 CHRIS (Rec: 10/16/17 15:17 CHRIS [id number]) Intravenous Solution Start Date 10/16/17 Start Time 15:17 Vancomycin HCl (Vancomycin 1gm) 1 gm in 250 mls @ 167 mls/hr IVPB STAT STA PRN Reason: Protocol Stop: 10/16/17 14:15 - Scribe Statement The provider has reviewed the documentation as recorded by the Fransisca Lomeli Provider Scribe Attestation: All medical record entries made by the Scribclive were at my direction and personally dictated by me. I have reviewed the chart and agree that the record accurately reflects my personal performance of the history, physical exam, medical decision making, and the department course for this patient. I have also personally directed, reviewed, and agree with the discharge instructions and disposition. Disposition/Present on Arrival - Present on Arrival Any Indicators Present on Arrival: Yes History of DVT/PE: No History of Uncontrolled Diabetes: Yes Urinary Catheter: No History of Decub. Ulcer: Yes History Surgical Site Infection Following: None - Disposition Have Diagnosis and Disposition been Completed?: Yes Diagnosis: Gangrene Disposition: HOSPITALIZED Disposition Time: 13:33 Patient Plan: Admission Condition: FAIR
[2017-10-16] MEDS ORDERED: Vancomycin 1gm in NS 250ml 1 GM/250 ML BAG IVPB STA (12:46)
[2017-10-16] MEDS ORDERED: Meropenem IV 1 gm in NS 50 ML IVPB STA (12:54)
--- NOTE | 2017-10-16 13:26 | RAD ---
Date of service: 10/16/2017 HISTORY: esrd COMPARISON: 10/02/2017 FINDINGS: LUNGS: No active pulmonary disease. PLEURA: No significant pleural effusion identified, no pneumothorax apparent. CARDIOVASCULAR: Moderate cardiomegaly OSSEOUS STRUCTURES: No significant abnormalities. VISUALIZED UPPER ABDOMEN: Normal. OTHER FINDINGS: Pacemaker IMPRESSION: No active disease.
[2017-10-16 13:45] LABS: BASO # 0.02 K/mm3 (0.0-2.0); BASO % 0.2 % (0.0-3.0); EOS # 0.2 (0.0-0.7); EOS % 2.5 % (1.5-5.0); GRAN # 6.33 (1.4-6.5); GRAN % 74.7 % (50.0-68.0); HEMOGLOBIN 7.3 g/dL (14.0-18.0); LYMPH # 1.4 (1.2-3.4); LYMPH % 16.8 % (22.0-35.0); MEAN CELL VOLUME 92.9 fl (80.0-105.0); MEAN CORPUSCULAR HGB CONC 31.2 g/dl (31.0-37.0); MEAN PLATELET VOLUME 10.4 fl (7.0-11.0); MONO # 0.5 (0.1-0.6); MONO % 5.8 % (1.0-6.0); RBC 2.52 10^6/uL (3.5-6.1); RED CELL DISTRIBUTION WIDTH 19.1 % (11.5-14.5); VENOUS BLOOD GAS BASE EXCESS 5.5 mmol/L (0.0-2.0); VENOUS BLOOD GAS PO2 148 mm/Hg (30-55); VENOUS BLOOD PH 7.42 (7.32-7.43); WHITE BLOOD COUNT 8.5 10^3/ul (4.5-11.0)
[2017-10-16 13:52] LABS: INR 1.73
[2017-10-16 14:01] LABS: ALB/GLOB RATIO 0.7 (1.1-1.8); ALBUMIN 2.7 g/dL (3.0-4.8); CALCIUM 8.5 mg/dL (8.4-10.5)
--- NOTE | 2017-10-16 14:43 | CARD ---
APPROVED REPORT Date of service: 10/16/2017 EKG Measurement Heart [id number] [id number] <Conclusion> Electronic ventricular pacemaker
--- NOTE | 2017-10-16 15:21 | CP.PCM.HP ---
Addendum entered and electronically signed by Asia Aguila DO 10/16/17 17:15 : surgery tentatively on . Dr Erickson started pt on ASA and brilinta Original Note: <Asia Aguila - Last Filed: 10/16/17 16:47> History of Present Illness - History of Present Illness History of Present Illness: PGY-[address] Potter Mr Berger, 52 M recently s/p transmetatarsal amputation of the right foot () due to wet gangrene to the right foot and bone exposure. He is on Dual antiplatelet for recent cardiac stent in May. During subsequent podiatry follow up while pt was in Subacute rehab stay at [facility] [place], he was found to have worsened foot wound filled with blood clot and bone exposure in the plantar of R foot. Dr. Villanueva requests Dr. Urrutia and Dr. Forbes on consult for admission and BKA. ROS: Denies F/C, CP, SOB, N/V/D/C, dysuria PMHx CVA with slight residual weakness CAD s/p stent (06/13/17), CHF, pacemaker (metronic) PVD RENATA, on CPAP COPD DM__2_, peripheral neuropathy, A1C 7.8 (10/04/17) Rt foot non healing wound ESRD MWF due to HTN/DM (Anemia (D64.9), Hyperphosphatemia (E83.39), Secondary Hyperparathyroidism ( E21.1), HTN (I12.0)) severe pulmonary HTN PSH R arm midline L eye coirnea transplant, 1992 AV Fistula Cholecystectomy FH DM, CVA, ESRD SH Never smoke, rare wine; live alone on 6th floor; mom lives on 11th floor All Aspart, moxifloxacin, penicillin, regular insulin PMD/ Neurologist: Dr. Potter [place] Manager: Dr. Erickson Egg Caser: Dr. Villanueva Present on Admission - Present on Admission Any Indicators Present on Admission: No Past Patient History - Infectious Disease Hx of Infectious Diseases: None - Tetanus Immunizations Tetanus Immunization: Up to Date - Past Medical History & Family History Past Medical History?: Yes - Past Social History Smoking Status: Never Smoked - CARDIAC Hx Pacemaker: Yes - PULMONARY Hx Chronic Obstructive Pulmonary Disease (COPD): Yes - NEUROLOGICAL HX Cerebrovascular Accident: Yes - HEENT Hx HEENT Problems: Yes (BILATERAL EYE WITH BLURRY VISION) Hx Cataracts: Yes (HAD SX 05/29/12) Hx Epistaxis: Yes Other/Comment: left eye cornea transplant,RENAL RETINOPATHY, glasses - RENAL Hx Renal Failure: Yes - ENDOCRINE/METABOLIC Hx Diabetes Mellitus Type 1: Yes Hx Diabetes Mellitus Type 2: Yes Hx Hypothyroidism: Yes - HEMATOLOGICAL/ONCOLOGICAL Hx Cancer: No - INTEGUMENTARY Hx Dermatological Problems: Yes Hx Cellulitis: Yes - MUSCULOSKELETAL/RHEUMATOLOGICAL Hx Arthritis: Yes - GASTROINTESTINAL Hx Gastrointestinal Disorders: Yes Hx Gall Bladder Disease: Yes (CHOLECYSTECTOMY) Hx Gastroesophageal Reflux: Yes Hx Liver Failure: Yes (CKD) Hx Pancreatitis: Yes - GENITOURINARY/GYNECOLOGICAL Hx Genitourinary Disorders: Yes (esrd on HD MWF) Hx Hematuria: Yes Hx Prostate Problems: Yes Hx Urinary Tract Infection: Yes - PSYCHIATRIC Hx Psychophysiologic Disorder: Yes Hx Anxiety: Yes Hx Depression: No Hx Substance Use: No - SURGICAL HISTORY Hx Mastectomy: No - ANESTHESIA Hx Anesthesia: Yes Hx Anesthesia Reactions: No Hx Malignant Hyperthermia: No Meds Allergies/Adverse Reactions: Allergies Allergy/AdvReac Type Severity Reaction Status Date / Time insulin aspart [From Novolog] Allergy Intermediate RASH Verified 10/02/17 19:52 moxifloxacin Allergy Intermediate RASH Verified 10/02/17 19:52 Penicillins Allergy Intermediate RASH Verified 10/02/17 19:52 insulin regular Allergy ITCHING Verified 10/02/17 19:52 [From Novolin R Regular U-100 Insuln] Physical Exam - Constitutional Appears: No Acute Distress - Head Exam Head Exam: ATRAUMATIC, NORMAL INSPECTION, NORMOCEPHALIC - Eye Exam Eye Exam: EOMI, Normal appearance, PERRL. absent: Scleral icterus Pupil Exam: NORMAL ACCOMODATION - ENT Exam ENT Exam: Mucous Membranes Moist - Neck Exam Additional comments: supple - Respiratory Exam Respiratory Exam: Clear to Auscultation Bilateral. absent: Rales, Rhonchi, Wheezes - Cardiovascular Exam Cardiovascular Exam: REGULAR RHYTHM, +S1, +S2, Systolic Murmur - GI/Abdominal Exam GI & Abdominal Exam: Normal Bowel Sounds, Soft. absent: Distended, Guarding, Rigid, Tenderness - Extremities Exam Extremities exam: Negative for: calf tenderness, pedal edema Additional comments: R foot dressing d/c/i - Neurological Exam Neurological exam: Alert, Oriented x3 - Psychiatric Exam Psychiatric exam: Normal Affect, Normal Mood - Skin Skin Exam: Dry, Warm Results - Vital Signs Recent Vital Signs: Last Vital Signs Temp 98.8 F 10/16/17 12:42 Pulse 65 10/16/17 14:41 Resp 18 10/16/17 14:41 BP 110/50 L 10/16/17 14:41 Pulse Ox 100 10/16/17 14:41 - Labs Result Diagrams: 10/16/17 13:30 10/16/17 13:30 Assessment & Plan - Assessment and Plan (Free Text) Plan: Mr Berger, 52 M recently s/p transmetatarsal amputation of the right foot () due to wet gangrene to the right foot and bone exposure. He is on Dual antiplatelet for recent cardiac stent in May. During Subacute rehab stay at [facility] [place], pt weight bear on his surgical foot despite warning. On subsequent podiatry follow up, he was found to have blood clot and bone exposure in the plantar of R foot. Dr. Villanueva requests Dr. Urrutia and Dr. Forbes on consult for admission and BKA. EKG showed V-paced. CXR no active disease A: Cellulitis, possible osteomyelitis, s/p transmetatarsal amputation of the right foot (10/06/17) Hx CVA with L residual weakness CAD s/p stent (06/13/17), CHF, pacemaker (metronic) HTN PVD RENATA, on CPAP COPD DM_2__, peripheral neuropathy ESRD MWF due to HTN/DM, with Anemia, Hyperphosphatemia, Secondary Hyperparathyroidism, Hypothyroidism severe pulmonary HTN Moxifloxacin and PCN allergy Anemia at 7.3 (baseline 8-9), asymptomatic P: Merem, Linezolid, day __1__ Follow up blood culture Percocet Q6 PRN; Lyrica HS Lipitor 40, fenofibrate, lovaza 2gm bid For CAD, Hold Aspirin 81, Brilinta Continue metoprolol 50, For HTN, hydralazine 25 bid, For DM, hold glipizide, reduce humulin N to 20u (NPO mn), lispro-low sliding scale For chronic ESRD, HD MWF, Phoslo, Vit D2, multivitamin, sevelamer, For COPD/RENATA, Duoneb PRN, loratidine, CPAP PRN, montelikast, Advair. Pt will try CPAP tonight For Glucoma, bimatoprost For insomnia, benadryl HS prn For hypothyroidism, synthroid 25 Flomax for Bph Prophylaxis: Protonix, heparin SC Q12 NPO past midnight and hold heparin SQ, ASA, brilinta for possible surgery. Restart these meds if no plan for surgery. Consult: Forest Willis, Renan, Dre, Rich s/r/d/w Dr. Potter <Gallo Potter S - Last Filed: 10/17/17 18:40> Results - Vital Signs Recent Vital Signs: Last Vital Signs Temp 98.1 F 10/17/17 15:22 Pulse 70 10/17/17 15:22 Resp 18 10/17/17 15:22 BP 105/42 L 10/17/17 15:22 Pulse Ox 98 10/17/17 08:00 - Labs Result Diagrams: 10/17/17 08:00 10/17/17 08:00 Labs: Laboratory Results - last 24 hr 10/16/17 10/16/17 10/17/17 14:40 21:02 06:41 WBC RBC Hgb Hct MCV MCH MCHC RDW Plt Count MPV Gran % Lymph % (Auto) [place] % (Auto) Eos % (Auto) Baso % (Auto) Gran # Lymph # (Auto) [place] # (Auto) Eos # (Auto) Baso # (Auto) PT INR Sodium Potassium Chloride Carbon Dioxide Anion Gap BUN Creatinine Est GFR ( Amer) Est GFR (Non-Af Amer) POC Glucose (mg/dL) 165 H 119 H Random Glucose Hemoglobin A1c Calcium Iron TIBC % Saturation Ferritin Triglycerides Cholesterol LDL Cholesterol Direct HDL Cholesterol TSH 3rd Generation Blood Type B POSITIVE Antibody Screen Negative Crossmatch See Detail BBK History Checked Patient has bt 10/17/17 10/17/17 10/17/17 08:00 08:00 08:00 WBC 7.4 RBC 2.42 L Hgb 7.0 L Hct 22.4 L MCV 92.6 MCH 28.9 MCHC 31.3 RDW 18.9 H Plt Count 86 L MPV 10.4 Gran % 68.2 H Lymph % (Auto) 20.3 L [place] % (Auto) 7.7 H Eos % (Auto) 3.5 Baso % (Auto) 0.3 Gran # 5.07 Lymph # (Auto) 1.5 [place] # (Auto) 0.6 Eos # (Auto) 0.3 Baso # (Auto) 0.02 PT 19.7 INR 1.69 Sodium 134 Potassium 5.2 H Chloride 97 L Carbon Dioxide 29 Anion Gap 14 BUN 45 H Creatinine 7.7 H* Est GFR ( Amer) 9 Est GFR (Non-Af Amer) 7 POC Glucose (mg/dL) Random Glucose 119 H Hemoglobin A1c Calcium 8.7 Iron TIBC % Saturation Ferritin 659.0 Triglycerides 77 Cholesterol < 50 L LDL Cholesterol Direct < 30 HDL Cholesterol 19 L TSH 3rd Generation Blood Type Antibody Screen Crossmatch BBK History Checked 10/17/17 10/17/17 10/17/17 08:00 08:00 08:00 WBC RBC Hgb Hct MCV MCH MCHC RDW Plt Count MPV Gran % Lymph % (Auto) [place] % (Auto) Eos % (Auto) Baso % (Auto) Gran # Lymph # (Auto) [place] # (Auto) Eos # (Auto) Baso # (Auto) PT INR Sodium Potassium Chloride Carbon Dioxide Anion Gap BUN Creatinine Est GFR ( Amer) Est GFR (Non-Af Amer) POC Glucose (mg/dL) Random Glucose Hemoglobin A1c 6.2 Calcium Iron 140 TIBC 220 L % Saturation 64 H Ferritin Triglycerides Cholesterol LDL Cholesterol Direct HDL Cholesterol TSH 3rd Generation 8.39 H Blood Type Antibody Screen Crossmatch BBK History Checked 10/17/17 10/17/17 11:24 16:18 WBC RBC Hgb Hct MCV MCH MCHC RDW Plt Count MPV Gran % Lymph % (Auto) [place] % (Auto) Eos % (Auto) Baso % (Auto) Gran # Lymph # (Auto) [place] # (Auto) Eos # (Auto) Baso # (Auto) PT INR Sodium Potassium Chloride Carbon Dioxide Anion Gap BUN Creatinine Est GFR ( Amer) Est GFR (Non-Af Amer) POC Glucose (mg/dL) 163 H 136 H Random Glucose Hemoglobin A1c Calcium Iron TIBC % Saturation Ferritin Triglycerides Cholesterol LDL Cholesterol Direct HDL Cholesterol TSH 3rd Generation Blood Type Antibody Screen Crossmatch BBK History Checked Assessment & Plan - Assessment and Plan (Free Text) Plan: Pt seen and examined. I have reviewed the note of the medical review coordinator and agree with it. I have discussed the assessment and plan with the resident. I have reviewed the patient's labs and medications. Pt with R foot leg wound. According to Dr Villanueva pt put weigh on this wound and it did not heal. Pt will need surgery for probably BKA. He is on ESRD on HD. He will need continue his ASA. Brilnta may by placed on even though the pt had a recent stent placed by Dr Erickson. He will be dialyzed on Monday. Pain is controlled. Eating ok. Dr Urrutia consultation for evaluation.
--- NOTE | 2017-10-16 15:28 | CP.PCM.CON ---
History of Present Illness - History of Present Illness History of Present Illness: General Surgery Consult note for Dr. Urrutia Consulted for: right foot infection refractory to current management Patient is a 52M with PMH of ESRD on HD, PAD, DM, CAD s/p drug eluting stent placement 4 months ago currently on ASA and brilinta, CHF, COPD, and TIA who has had chronic wound of the right foot. Patient had a wound on his right toe that was treated by Dr. Villanueva with an amputation of all 5 toes one month ago. The surgical wound did not heal well and patient states that he developed abscesses that were drained at [facility] [place]. He was discharged on IV vancomycin and some other antibiotics that he can't recall (merrem and linezolid are in his ambulatory orders). Patient also underwent and angio of his RLE with a balloon angioplasty of his right distal anterior tibial artery with IR at [facility] on with good flow obtained, after which he was sent to [facility] for rehab. There his wound continued to deteriorate until Dr. Villanueva referred him to [facility] for a possible BKA. Patient denies any fevers, chills, states that he has light pink discharge from the bottom of his foot, but denies any pain d/t chronic neuropathies. Patient denies any focal weakness, CP, SOB, or any other symptoms PMH of ESRD on HD, PAD, DM, CAD s/p stents, CHF, COPD, and TIA PSH: L eye cornea transplant, AV Fistula, Cholecystectomy Allerg: Aspart, moxifloxacin, penicillin, regular insulin Review of Systems - Review of Systems All systems: reviewed and no additional remarkable complaints except (as per HPI ) Past Patient History - Infectious Disease Hx of Infectious Diseases: None - Tetanus Immunizations Tetanus Immunization: Up to Date - Past Medical History & Family History Past Medical History?: Yes Pertinent Family History: Mother: ESRD - Past Social History Smoking Status: Never Smoked - CARDIAC Hx Pacemaker: Yes - PULMONARY Hx Chronic Obstructive Pulmonary Disease (COPD): Yes - NEUROLOGICAL HX Cerebrovascular Accident: Yes - HEENT Hx HEENT Problems: Yes (BILATERAL EYE WITH BLURRY VISION) Hx Cataracts: Yes (HAD SX 05/29/12) Hx Epistaxis: Yes Other/Comment: left eye cornea transplant,RENAL RETINOPATHY, glasses - RENAL Hx Renal Failure: Yes - ENDOCRINE/METABOLIC Hx Diabetes Mellitus Type 1: Yes Hx Diabetes Mellitus Type 2: Yes Hx Hypothyroidism: Yes - HEMATOLOGICAL/ONCOLOGICAL Hx Cancer: No - INTEGUMENTARY Hx Dermatological Problems: Yes Hx Cellulitis: Yes - MUSCULOSKELETAL/RHEUMATOLOGICAL Hx Arthritis: Yes - GASTROINTESTINAL Hx Gastrointestinal Disorders: Yes Hx Gall Bladder Disease: Yes (CHOLECYSTECTOMY) Hx Gastroesophageal Reflux: Yes Hx Liver Failure: Yes (CKD) Hx Pancreatitis: Yes - GENITOURINARY/GYNECOLOGICAL Hx Genitourinary Disorders: Yes (esrd on HD MWF) Hx Hematuria: Yes Hx Prostate Problems: Yes Hx Urinary Tract Infection: Yes - PSYCHIATRIC Hx Psychophysiologic Disorder: Yes Hx Anxiety: Yes Hx Depression: No Hx Substance Use: No - SURGICAL HISTORY Hx Mastectomy: No - ANESTHESIA Hx Anesthesia: Yes Hx Anesthesia Reactions: No Hx Malignant Hyperthermia: No Meds Allergies/Adverse Reactions: Allergies Allergy/AdvReac Type Severity Reaction Status Date / Time insulin aspart [From Novolog] Allergy Intermediate RASH Verified 10/02/17 19:52 moxifloxacin Allergy Intermediate RASH Verified 10/02/17 19:52 Penicillins Allergy Intermediate RASH Verified 10/02/17 19:52 insulin regular Allergy ITCHING Verified 10/02/17 19:52 [From Novolin R Regular U-100 Insuln] - Medications Medications: Current Medications Meropenem 250 mg/ Sodium (Chloride) 100 mls @ 100 mls/hr IVPB Q12H CARLOS PRN Reason: Protocol Stop: 10/23/17 14:46 Linezolid (Zyvox 600mg/300ml D5w) 600 mg in 300 mls @ 200 mls/hr IVPB Q12 CARLOS PRN Reason: Protocol Stop: 10/23/17 22:01 Physical Exam - Constitutional Appears: Well, Non-toxic, No Acute Distress - Head Exam Head Exam: ATRAUMATIC, NORMOCEPHALIC - Eye Exam Eye Exam: Normal appearance. absent: Conjunctival injection, Scleral icterus - ENT Exam ENT Exam: Mucous Membranes Moist, Normal Oropharynx - Respiratory Exam Respiratory Exam: NORMAL BREATHING PATTERN. absent: Accessory Muscle Use, Respiratory Distress - Cardiovascular Exam Cardiovascular Exam: RRR - GI/Abdominal Exam GI & Abdominal Exam: Soft. absent: Distended - Extremities Exam Extremities exam: Positive for: pedal pulses present (left pedal pulses present , right popliteal pulse present). Negative for: calf tenderness, pedal edema Additional comments: BL lower leg with chronic skin changes from chronic venous stasis. Right foot with surgical incision well approximated across the distal metatarsal with fitz but skin is black and necrotic looking. Patient has large wound on the distal sole of his foot extending into subcutaneous tissue approximately 7cm long and 8cm wide with purulent fluid drainage left hand with a small eschar over the dorsal aspect of his third digit with no surrounding erythema or drainage - Neurological Exam Neurological exam: Alert, Oriented x3 - Psychiatric Exam Psychiatric exam: Normal Affect, Normal Mood - Skin Skin Exam: Dry, Intact (except as noted above), Normal Color, Warm Results - Vital Signs Recent Vital Signs: Last Vital Signs Temp 98.8 F 10/16/17 12:42 Pulse 65 10/16/17 14:41 Resp 18 10/16/17 14:41 BP 110/50 L 10/16/17 14:41 Pulse Ox 100 10/16/17 14:41 - Labs Result Diagrams: 10/16/17 13:30 10/16/17 13:30 Assessment & Plan - Assessment and Plan (Free Text) Assessment: 52M with many comorbidities with chronic right foot wound with infection Plan: Tentative plan for OR on pending cardiac, pulmonology, and nephrology clearance and optimization Patient currently on Brilinta and ASA--hold brilinta now for OR and hold ASA the day prior to OR--coagulation recs from cardiology appreciated Patient's hemoglobin and INR should improve prior to OR Antibiotics per ID Continue HD as needed May have a diet per primary discretion Continue to trend CBC Local wound care per podiatry Discussed with Dr. Urrutia, who agrees with above Jaja Mejía, PGY2
--- NOTE | 2017-10-16 17:05 | CP.PCM.CON ---
History of Present Illness - History of Present Illness History of Present Illness: 52 year old male with PMH of COPD, history of bilateral HCAP, history of sepsis with gastroenteritis and C. diff. associated diarrhea, ESRD on HD, DM, obesity with BMI 34, CAD S/P PCI, retinopathy, history of pancreatitis, history of right foot cellulitis with wet gangrene S/P TMA was brought back in to [facility] [place] because of worsening of the right TMA foot stump as he was seen by Dr. Villanueva. Patient is admitted for possible amputation of the right leg. He denies fever or chills, no soaking of his leg in water, no headache or dizziness, no chest pain, no SOB, no diarrhea, no dysuria, no abdominal pain, no diarrhea, no chest pain, no cough or rhinorrhea. Infectious Diseases consult is requested to further evaluate and manage. Review of Systems - Review of Systems All systems: reviewed and no additional remarkable complaints except (as per HPI ) Past Patient History - Infectious Disease Hx of Infectious Diseases: None - Tetanus Immunizations Tetanus Immunization: Up to Date - Past Medical History & Family History Past Medical History?: Yes - Past Social History Smoking Status: Never Smoked - CARDIAC Hx Pacemaker: Yes - PULMONARY Hx Chronic Obstructive Pulmonary Disease (COPD): Yes - NEUROLOGICAL HX Cerebrovascular Accident: Yes - HEENT Hx HEENT Problems: Yes (BILATERAL EYE WITH BLURRY VISION) Hx Cataracts: Yes (HAD SX 05/29/12) Hx Epistaxis: Yes Other/Comment: left eye cornea transplant,RENAL RETINOPATHY, glasses - RENAL Hx Renal Failure: Yes - ENDOCRINE/METABOLIC Hx Diabetes Mellitus Type 1: Yes Hx Diabetes Mellitus Type 2: Yes Hx Hypothyroidism: Yes - HEMATOLOGICAL/ONCOLOGICAL Hx Cancer: No - INTEGUMENTARY Hx Dermatological Problems: Yes Hx Cellulitis: Yes - MUSCULOSKELETAL/RHEUMATOLOGICAL Hx Arthritis: Yes - GASTROINTESTINAL Hx Gastrointestinal Disorders: Yes Hx Gall Bladder Disease: Yes (CHOLECYSTECTOMY) Hx Gastroesophageal Reflux: Yes Hx Liver Failure: Yes (CKD) Hx Pancreatitis: Yes - GENITOURINARY/GYNECOLOGICAL Hx Genitourinary Disorders: Yes (esrd on HD MWF) Hx Hematuria: Yes Hx Prostate Problems: Yes Hx Urinary Tract Infection: Yes - PSYCHIATRIC Hx Psychophysiologic Disorder: Yes Hx Anxiety: Yes Hx Depression: No Hx Substance Use: No - SURGICAL HISTORY Hx Mastectomy: No - ANESTHESIA Hx Anesthesia: Yes Hx Anesthesia Reactions: No Hx Malignant Hyperthermia: No Meds Allergies/Adverse Reactions: Allergies Allergy/AdvReac Type Severity Reaction Status Date / Time insulin aspart [From Novolog] Allergy Intermediate RASH Verified 10/02/17 19:52 moxifloxacin Allergy Intermediate RASH Verified 10/02/17 19:52 Penicillins Allergy Intermediate RASH Verified 10/02/17 19:52 insulin regular Allergy ITCHING Verified 10/02/17 19:52 [From Novolin R Regular U-100 Insuln] Physical Exam - Constitutional Appears: Chronically Ill - Head Exam Head Exam: NORMAL INSPECTION - ENT Exam ENT Exam: Mucous Membranes Moist - Neck Exam Neck exam: Negative for: Lymphadenopathy, Meningismus - Respiratory Exam Respiratory Exam: Decreased Breath Sounds - Cardiovascular Exam Cardiovascular Exam: +S1, +S2 - GI/Abdominal Exam GI & Abdominal Exam: Soft. absent: Tenderness Results - Vital Signs Recent Vital Signs: Last Vital Signs Temp 98.8 F 10/16/17 12:42 Pulse 72 10/16/17 12:42 Resp 22 10/16/17 12:42 BP 140/66 10/16/17 12:42 Pulse Ox 100 10/16/17 12:42 - Labs Result Diagrams: 10/16/17 13:30 10/16/17 13:30 Assessment & Plan - Assessment and Plan (Free Text) Plan: Assessment right TMA stump gangrene history of right foot cellulitis with wet gangrene, R/O osteomyelitis S/P TMA history of bilateral healthcare-associated pneumonia history of sepsis with gastroenteritis and C. diff. associated diarrhea ESRD on HD DM obesity CAD S/P PCI retinopathy history of pancreatitis Plan started Zyvox and Merrem and patient is planned for BKA will monitor clinically
[2017-10-16] MEDS: Omega-3-Acid Ethyl Esters 1 GM Cap PO SCH (17:47)
[2017-10-16] MEDS: SALMETEROL XINAFOATE IH SCH (17:50)
[2017-10-16] MEDS: FLUTICASO IH SCH (17:50)
[2017-10-16] MEDS: Oxycodone/Acetaminophen 10/325 mg Tab PO PRN (18:08)
[2017-10-16] MEDS: Insulin Human NPH 1 UNITS/0.01 ML SC SCH (18:09)
[2017-10-16] MEDS: Latanoprost 2.5 ml Opht Soln OU SCH (21:55)
[2017-10-16] MEDS: Linezolid 600 mg in D5W 300 ml 600 MG/300 ML BAG IVPB SCH (21:55)
[2017-10-16] MEDS ORDERED: Insulin Lispro (humaLOG) LOW Coverage SC SCH (22:00)
[2017-10-16] MEDS: Insulin Reg-HIGH-Coverage SC SCH (22:03)
[2017-10-16] MEDS ORDERED: Pneumococcal 23-Valent Vaccine IM ONE (23:16)
--- NOTE | 2017-10-17 04:33 | CON ---
DATE: 10/16/2017 REASON FOR CONSULTATION: Preoperative evaluation, risk stratification for possible right BKA, nonhealing right foot, status post TMA recently, and cardiac evaluation. BRIEF CLINICAL HISTORY: This is a 52-year-old male with past medical history of brittle diabetes, hypertension, hyperlipidemia, coronary artery disease, status post stent, status post permanent pacemaker, apparently had a infected toe, status post right forefoot amputation, transmetatarsal amputation recently and discharged home. Patient is readmitted with nonhealing ulcer and is being evaluated for possible amputation, right BKA. Patient denies any chest pain, shortness of breath. Patient is crying that he has to go for below knee amputation tomorrow. Denies any chest pain, shortness of breath, or any palpitation. PAST MEDICAL HISTORY: Significant for diabetes, leading to diabetic neuropathy, diabetic retinopathy, nephropathy, end-stage renal disease on dialysis on Monday, Monday, and Monday, history of COPD, history of pancreatitis, history of hypertriglyceridemia, initially the patient was noncompliant, history of permanent pacemaker because of significant bradycardia, syncope, history of sick sinus syndrome, history of coronary artery disease, history of stent. PREVIOUS CARDIAC WORKUP: As follows; patient has history of PTCA of LAD on 06/12/2017, and found to be resistant to Plavix, switched over to Brilinta because of the platelet aggregation inhibitors, was not adequately inhabited with Plavix and resistant. Patient has history of permanent pacemaker because of junctional bradycardia, near syncope during the dialysis dated 06/27/2017, history of transmetatarsal amputation on 10/11/2017, history of intracerebral bleed while patient is on Brilinta, was held for two weeks, restarted; because patient fell down. History of last stent in LAD on 06/12/2017. Two drug-eluting stents were done after the FFR was done and found to be significant FFR, so patient underwent drug-eluting stent. History of mild valvular aortic stenosis, history of MRI safe pacemaker dated 06/27/2017 because of junctional bradycardia and syncope. History of most recent echocardiography done on 10/03/2017 because patient was admitted to [facility] and was told that patient has endocarditis. The echo done, found to have ejection fraction 65%, moderate to severe aortic regurgitation, mild to moderate valvular aortic stenosis, mild to moderate mitral regurgitation, moderate to severe tricuspid regurgitation, RV systolic pressure 75, mild pulmonic insufficiency, trivial pericardial effusion, echogenic mobile structure attached to the aortic valve leaflet, same consistency of valve, cannot rule out vegetation versus degenerative changes, but blood cultures have been positive, so diagnosis of endocarditis was not entertained. CURRENT MEDICATIONS: Patient is taking at home hydralazine, Brilinta, Flomax, nasal spray, Lyrica, Singular, levothyroxine, insulin, glipizide. ALLERGIES: ALLERGY TO INSULIN. ALLERGY TO LEVAQUIN, PENICILLIN. REVIEW OF SYSTEMS: As per HPI. PHYSICAL EXAMINATION: VITAL SIGNS: Height of the patient 5 feet 6 inches, weight of the patient 191 pounds, body mass index 30.8 kg/sq m. LABORATORY DATA: EKG shows V-paced rhythm with underlying sinus. Blood workup; WBC 8.5, hemoglobin 7.3, hemoglobin 23.4, platelet count 105. Chemistry shows sodium 138, potassium 4.9, chloride 97, carbon dioxide 28, anion gap of 16, BUN 30, creatinine 6.9. IMPRESSION: This is a 52-year-old male with past medical history significant for full-blown diabetes with diabetic complications including diabetic retinopathy, neuropathy, nephropathy, peripheral arterial disease, status post right transmetatarsal amputation, nonhealing ulcer requiring right below knee amputation, history of coronary artery disease, most recent stent in 05/2017 with drug-eluting stents, 2 stents in left anterior descending artery after fractional flow reserve, was found to be abnormal. Following that, patient had fell down and sustained intracerebral bleed, was kept for 10 days off Brilinta. Patient is resistant to Plavix, high PRU. history of permanent pacemaker with junctional bradycardia in 06/2017. RECOMMENDATIONS: In view of above, patient has no absolute contraindication for right BKA. Discussed in length with patient's mom McDoom and the patient himself. Patient was explained the risk benefit ratio and no absolute contraindication for surgery, no evidence of ischemia, arrhythmia, or congestive heart failure. Should the patient need to hold the Brilinta, suggest to hold for 2 days, because patient has recently placed drug-coated stent in 05/2017. We will get the lipid profile, TSH, hemoglobin A1c. Recent echo did not show any vegetation. Overall, patient's condition is critical. Long-term prognosis is guarded. We will follow with you. Thank you, Dr. Kessler/Dr. Potter, for providing us the opportunity in taking care of the patient, Jason Berger. Jarred Erickson MD
[2017-10-17] MEDS: Pantoprazole 40 mg EC Tab PO SCH (05:23)
[2017-10-17] MEDS: Levothyroxine 25 MCG TAB PO SCH (05:23)
[2017-10-17 08:31] LABS: BASO # 0.02 K/mm3 (0.0-2.0); BASO % 0.3 % (0.0-3.0); EOS # 0.3 (0.0-0.7); EOS % 3.5 % (1.5-5.0); GRAN # 5.07 (1.4-6.5); GRAN % 68.2 % (50.0-68.0); LYMPH # 1.5 (1.2-3.4); LYMPH % 20.3 % (22.0-35.0); MEAN CELL VOLUME 92.6 fl (80.0-105.0); MEAN CORPUSCULAR HEMOGLOBIN 28.9 pg (25.0-35.0); MEAN CORPUSCULAR HGB CONC 31.3 g/dl (31.0-37.0); MEAN PLATELET VOLUME 10.4 fl (7.0-11.0); MONO # 0.6 (0.1-0.6); MONO % 7.7 % (1.0-6.0); RBC 2.42 10^6/uL (3.5-6.1); RED CELL DISTRIBUTION WIDTH 18.9 % (11.5-14.5); WHITE BLOOD COUNT 7.4 10^3/ul (4.5-11.0)
[2017-10-17 08:33] LABS: INR 1.69
[2017-10-17 08:35] LABS: BLOOD UREA NITROGEN 45 mg/dL (7-21); CALCIUM 8.7 mg/dL (8.4-10.5); GFR NON-AFRICAN AMERICAN 7; HDL CHOLESTEROL 19 mg/dL (29-60)
[2017-10-17 08:38] LABS: IRON 140 ug/dL (45-180)
[2017-10-17 08:47] LABS: % IRON SATURATION 64 % (20-55); TOTAL IRON BINDING CAPACITY 220 ug/dL (261-462)
[2017-10-17 08:54] LABS: LDL CHOLESTEROL < 30 mg/dL (0-129)
[2017-10-17] MEDS: Multivitamin Therapeutic Tab PO SCH (09:30)
[2017-10-17] MEDS: Linezolid 600 mg in D5W 300 ml 600 MG/300 ML BAG IVPB SCH ×2 (09:31→22:48)
[2017-10-17] MEDS: Omega-3-Acid Ethyl Esters 1 GM Cap PO SCH ×2 (09:31→18:09)
[2017-10-17] MEDS: Insulin Reg-HIGH-Coverage SC SCH ×3 (09:32→16:54)
[2017-10-17] MEDS: FLUTICASO IH SCH ×2 (09:32→18:15)
[2017-10-17] MEDS: SALMETEROL XINAFOATE IH SCH ×2 (09:32→18:15)
--- NOTE | 2017-10-17 10:42 | CP.PCM.PN ---
<Asia Aguila - Last Filed: 10/17/17 10:37> Subjective - Date & Time of Evaluation Date of Evaluation: 10/17/17 Time of Evaluation: 07:00 - Subjective Subjective: PGY-[address] Potter No acute complained. Anuric, baseline. +BM Objective - Vital Signs/Intake and Output Vital Signs (last 24 hours): Temp Pulse Resp BP Pulse Ox 97.8 F 64 18 106/36 L 98 10/17/17 08:00 10/17/17 08:00 10/17/17 08:00 10/17/17 08:00 10/17/17 08:00 Intake and Output: 10/17/17 10/17/17 06:59 18:59 Intake Total 240 Balance 240 - Medications Medications: Current Medications Albuterol/Ipratropium (Duoneb 3 Mg/0.5 Mg (3 Ml) Ud) 3 ml IH [id number] PRN PRN Reason: Shortness of Breath Aspirin (Ecotrin) 81 mg PO DAILY [facility] Last Admin: 10/17/17 09:30 Dose: 81 mg Atorvastatin Calcium (Lipitor) 40 mg PO DIN [facility] Last Admin: 10/16/17 17:47 Dose: 40 mg Calcium Acetate (Phoslo) 1,334 mg PO WM [facility] Last Admin: 10/17/17 08:31 Dose: 1,334 mg Diphenhydramine HCl (Benadryl) 25 mg PO HS PRN PRN Reason: Insomnia Last Admin: 10/16/17 22:05 Dose: 25 mg Ergocalciferol (Drisdol 50,000 Intl Units Cap) 1 cap PO WED [facility] Fenofibrate (Tricor) 145 mg PO DAILY [facility] Last Admin: 10/17/17 09:30 Dose: 145 mg Heparin Sodium (Porcine) (Heparin) 5,000 units SC Q12 CARLOS PRN Reason: Protocol Last Admin: 10/17/17 09:29 Dose: 5,000 units Hydralazine HCl (Apresoline) 25 mg PO BID [facility] Last Admin: 10/17/17 09:30 Dose: 25 mg Meropenem 250 mg/ Sodium (Chloride) 100 mls @ 100 mls/hr IVPB Q12H CARLOS PRN Reason: Protocol Stop: 10/23/17 14:46 Last Admin: 10/17/17 02:26 Dose: 100 mls/hr Linezolid (Zyvox 600mg/300ml D5w) 600 mg in 300 mls @ 200 mls/hr IVPB Q12 CARLOS PRN Reason: Protocol Stop: 10/23/17 22:01 Last Admin: 10/17/17 09:31 Dose: 200 mls/hr Insulin Human NPH (Humulin N) 20 units SC QPM [facility] Last Admin: 10/16/17 18:09 Dose: Not Given Insulin Human Regular (Humulin R High) 0 units SC ACHS CARLOS PRN Reason: Protocol Last Admin: 10/17/17 09:32 Dose: Not Given Latanoprost (Xalatan Opht) 0 ml OU HS [facility] Last Admin: 10/16/17 21:55 Dose: 2.5 ml Levothyroxine Sodium (Synthroid) 25 mcg PO 0600 [facility] Last Admin: 10/17/17 05:23 Dose: 25 mcg Loratadine (Claritin) 10 mg PO HS [facility] Last Admin: 10/16/17 21:56 Dose: 10 mg Metoprolol Tartrate (Lopressor) 25 mg PO BID [facility] Montelukast Sodium (Singulair) 10 mg PO [facility] Last Admin: 10/16/17 21:57 Dose: 10 mg Multivitamins (Thera Tab) 1 tab PO DAILY [facility] Last Admin: 10/17/17 09:30 Dose: 1 tab Salmeterol Xinafoate /Fluticaso [Advair Hfa 230-21] 1 puff IH BID [facility] Last Admin: 10/17/17 09:32 Dose: Not Given Vjqdd-7-Riin Ethyl Esters (Lovaza) 2 gm PO BID [facility] Last Admin: 10/17/17 09:31 Dose: 1 gm Oxycodone/Acetaminophen (Percocet 10/325 Mg Tab) 1 tab PO Q6H PRN PRN Reason: Pain, moderate (4-7) Last Admin: 10/16/17 18:08 Dose: 1 tab Pantoprazole Sodium (Protonix Ec Tab) 40 mg PO 0600 [facility] Last Admin: 10/17/17 05:23 Dose: 40 mg Pregabalin (Lyrica) 50 mg PO HS [facility] Last Admin: 10/16/17 21:57 Dose: 50 mg Sevelamer HCl (Renagel) 1,600 mg PO [facility] Last Admin: 10/17/17 08:31 Dose: 1,600 mg Sodium Chloride ([place] Nasal [place]) 0 ml NS Q2H PRN PRN Reason: Nasal congestion Tamsulosin HCl (Flomax) 0.4 mg PO HS [facility] Last Admin: 10/16/17 21:57 Dose: 0.4 mg Ticagrelor (Brilinta) 90 mg PO BID [facility] Last Admin: 10/16/17 17:46 Dose: Not Given - Labs Labs: 10/17/17 08:00 10/17/17 08:00 PT 19.7 SECONDS 10/17/17 08:00 INR 1.69 10/17/17 08:00 APTT 33.4 Seconds 10/16/17 13:30 - Constitutional Appears: No Acute Distress - Head Exam Head Exam: ATRAUMATIC, NORMAL INSPECTION, NORMOCEPHALIC - Eye Exam Eye Exam: EOMI, Normal appearance, PERRL. absent: Scleral icterus Pupil Exam: NORMAL ACCOMODATION - ENT Exam ENT Exam: Mucous Membranes Moist - Neck Exam Additional comments: supple - Respiratory Exam Respiratory Exam: Clear to Ausculation Bilateral. absent: Rales, Rhonchi, Wheezes - Cardiovascular Exam Cardiovascular Exam: REGULAR RHYTHM, +S1, +S2. absent: Murmur - GI/Abdominal Exam GI & Abdominal Exam: Soft, Normal Bowel Sounds. absent: Rigid, Tenderness - Extremities Exam Extremities Exam: absent: Calf Tenderness, Pedal Edema Additional comments: R foot stump, dressing d/c/i - Neurological Exam Neurological Exam: Alert, Awake, Oriented x3 - Psychiatric Exam Psychiatric exam: Normal Affect, Normal Mood - Skin Skin Exam: Dry, Warm Assessment and Plan - Assessment and Plan (Free Text) Plan: Mr Berger, 52 M recently s/p transmetatarsal amputation of the right foot () due to wet gangrene to the right foot and bone exposure. He is on Dual antiplatelet for recent cardiac stent in May. During Subacute rehab stay at [facility], pt weight bear on his surgical foot despite warning. On subsequent podiatry follow up, he was found to have blood clot and bone exposure in the plantar of R foot. Dr. Villanueva requests Dr. Urrutia and Dr. Forbes on consult for admission and BKA. EKG showed V-paced. CXR no active disease A: Non-healing wounds, right TMA stump gangrene, likely due to vasculopath and non- compliance, s/p transmetatarsal amputation of the right foot (10/06/17) Hx R foot Cellulitis, R/O osteomyelitis Hx CVA with L residual weakness CAD s/p 2 YORDY in LAD (06/13/17), CHF, pacemaker (metronic) HTN PVD RENATA, on CPAP COPD DM_2__, peripheral neuropathy ESRD MWF due to HTN/DM, with Anemia, Hyperphosphatemia, Secondary Hyperparathyroidism, Hypothyroidism severe pulmonary HTN Moxifloxacin and PCN allergy Anemia at 7.3 (baseline 8-9), asymptomatic P: Merem & Linezolid, day __1__ Follow up blood culture Percocet Q6 PRN; Lyrica HS Lipitor 40, fenofibrate, lovaza 2gm bid Tentatively BKA on . Cardiology cleared. High uriel-operative cardiac risk. Pending pulm and nephro clearence For CAD, Hold Brilinta. Continue ASA per surgery and cardiology. Will f/u wound healing progress to decide when to restart Brilinta Continue metoprolol 50, For HTN, hydralazine 25 bid, For DM2, hold glipizide, reduce humulin N to 20u per last hospital insulin requirement, lispro-low sliding scale For chronic ESRD, HD MWF. Pt skipped Monday dialysis, will do it today with pRBC transfusion. Continue Phoslo, Vit D2, multivitamin, sevelamer For COPD/RENATA, Duoneb PRN, loratidine, CPAP PRN, montelikast, Advair. 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 R midline s/r/d/w Dr. Potter <Gallo Potter S - Last Filed: 10/17/17 18:58> Objective - Vital Signs/Intake and Output Vital Signs (last 24 hours): Temp Pulse Resp BP Pulse Ox 98.1 F 70 18 105/42 L 98 10/17/17 15:22 10/17/17 15:22 10/17/17 15:22 10/17/17 15:22 10/17/17 08:00 Intake and Output: 10/17/17 10/17/17 06:59 18:59 Intake Total 240 300 Balance 240 300 - Medications Medications: Current Medications Albuterol/Ipratropium (Duoneb 3 Mg/0.5 Mg (3 Ml) Ud) 3 ml IH [id number] PRN PRN Reason: Shortness of Breath Aspirin (Ecotrin) 81 mg PO DAILY [facility] Last Admin: 10/17/17 09:30 Dose: 81 mg Atorvastatin Calcium (Lipitor) 40 mg PO DIN [facility] Last Admin: 10/17/17 18:09 Dose: 40 mg Calcium Acetate (Phoslo) 1,334 mg PO WM [facility] Last Admin: 10/17/17 18:14 Dose: 1,334 mg Diphenhydramine HCl (Benadryl) 25 mg PO HS PRN PRN Reason: Insomnia Last Admin: 10/16/17 22:05 Dose: 25 mg Ergocalciferol (Drisdol 50,000 Intl Units Cap) 1 cap PO WED [facility] Fenofibrate (Tricor) 145 mg PO DAILY [facility] Last Admin: 10/17/17 09:30 Dose: 145 mg Heparin Sodium (Porcine) (Heparin) 5,000 units SC Q12 CARLOS PRN Reason: Protocol Last Admin: 10/17/17 09:29 Dose: 5,000 units Hydralazine HCl (Apresoline) 25 mg PO BID [facility] Last Admin: 10/17/17 18:08 Dose: Not Given Meropenem 250 mg/ Sodium (Chloride) 100 mls @ 100 mls/hr IVPB Q12H CARLOS PRN Reason: Protocol Stop: 10/23/17 14:46 Last Admin: 10/17/17 18:14 Dose: 100 mls/hr Linezolid (Zyvox 600mg/300ml D5w) 600 mg in 300 mls @ 200 mls/hr IVPB Q12 CARLOS PRN Reason: Protocol Stop: 10/23/17 22:01 Last Admin: 10/17/17 09:31 Dose: 200 mls/hr Insulin Human NPH (Humulin N) 20 units SC QPM [facility] Last Admin: 10/17/17 18:09 Dose: Not Given Insulin Human Regular (Humulin R High) 0 units SC ACHS [facility] PRN Reason: Protocol Last Admin: 10/17/17 16:54 Dose: Not Given Latanoprost (Xalatan Opht) 0 ml OU [facility] Last Admin: 10/16/17 21:55 Dose: 2.5 ml Levothyroxine Sodium (Synthroid) 25 mcg PO 0600 [facility] Last Admin: 10/17/17 05:23 Dose: 25 mcg Loratadine (Claritin) 10 mg PO HS [facility] Last Admin: 10/16/17 21:56 Dose: 10 mg Metoprolol Tartrate (Lopressor) 25 mg PO BID [facility] Last Admin: 10/17/17 18:09 Dose: Not Given Montelukast Sodium (Singulair) 10 mg PO [facility] Last Admin: 10/16/17 21:57 Dose: 10 mg Multivitamins (Thera Tab) 1 tab PO DAILY [facility] Last Admin: 10/17/17 09:30 Dose: 1 tab Salmeterol Xinafoate /Fluticaso [Advair Hfa 230-21] 1 puff IH BID [facility] Last Admin: 10/17/17 18:15 Dose: Not Given Bluaq-4-Wjqh Ethyl Esters (Lovaza) 2 gm PO BID [facility] Last Admin: 10/17/17 18:09 Dose: 1 gm Oxycodone/Acetaminophen (Percocet 10/325 Mg Tab) 1 tab PO Q6H PRN PRN Reason: Pain, moderate (4-7) Last Admin: 10/17/17 12:48 Dose: 1 tab Pantoprazole Sodium (Protonix Ec Tab) 40 mg PO 0600 [facility] Last Admin: 10/17/17 05:23 Dose: 40 mg Pregabalin (Lyrica) 50 mg PO [facility] Last Admin: 10/16/17 21:57 Dose: 50 mg Sevelamer HCl (Renagel) 1,600 mg PO WM [facility] Last Admin: 10/17/17 18:14 Dose: 1,600 mg Sodium Chloride ([place] Nasal [place]) 0 ml NS Q2H PRN PRN Reason: Nasal congestion Tamsulosin HCl (Flomax) 0.4 mg PO [facility] Last Admin: 10/16/17 21:57 Dose: 0.4 mg Ticagrelor (Brilinta) 90 mg PO BID [facility] Last Admin: 10/16/17 17:46 Dose: Not Given - Labs Labs: 10/17/17 08:00 10/17/17 08:00 PT 19.7 SECONDS 10/17/17 08:00 INR 1.69 10/17/17 08:00 APTT 33.4 Seconds 10/16/17 13:30 Assessment and Plan - Assessment and Plan (Free Text) Plan: Pt seen and examined. I have reviewed the note of the medical billing representative and agree with it. I have discussed the assessment and plan with the resident. I have reviewed the patient's labs and medications. Pt was dialyzed today. He will have surgery on . I will dialyze pt in the am. He is optimized for surgery. Continue with ASA, spoke to Dr Erickson. Pt is on Abx. Pt has a nonhealing ulcer. He has PAD and DM-2.
--- NOTE | 2017-10-17 10:53 | CP.PCM.PN ---
Subjective - Date & Time of Evaluation Date of Evaluation: 10/17/17 Time of Evaluation: 07:00 - Subjective Subjective: General surgery progress note for Dr. Urrutia Patient seen and examined this AM. No adverse events overnight. Patient denies any pain in the foot, fevers, chills, or any other symptoms. Objective - Vital Signs/Intake and Output Vital Signs (last 24 hours): Temp Pulse Resp BP Pulse Ox 97.8 F 64 18 106/36 L 98 10/17/17 08:00 10/17/17 08:00 10/17/17 08:00 10/17/17 08:00 10/17/17 08:00 Intake and Output: 10/17/17 10/17/17 06:59 18:59 Intake Total 240 Balance 240 - Medications Medications: Current Medications Albuterol/Ipratropium (Duoneb 3 Mg/0.5 Mg (3 Ml) Ud) 3 ml IH [id number] PRN PRN Reason: Shortness of Breath Aspirin (Ecotrin) 81 mg PO DAILY [facility] Last Admin: 10/17/17 09:30 Dose: 81 mg Atorvastatin Calcium (Lipitor) 40 mg PO DIN [facility] Last Admin: 10/16/17 17:47 Dose: 40 mg Calcium Acetate (Phoslo) 1,334 mg PO WM [facility] Last Admin: 10/17/17 08:31 Dose: 1,334 mg Diphenhydramine HCl (Benadryl) 25 mg PO HS PRN PRN Reason: Insomnia Last Admin: 10/16/17 22:05 Dose: 25 mg Ergocalciferol (Drisdol 50,000 Intl Units Cap) 1 cap PO WED [facility] Fenofibrate (Tricor) 145 mg PO DAILY [facility] Last Admin: 10/17/17 09:30 Dose: 145 mg Heparin Sodium (Porcine) (Heparin) 5,000 units SC Q12 CARLOS PRN Reason: Protocol Last Admin: 10/17/17 09:29 Dose: 5,000 units Hydralazine HCl (Apresoline) 25 mg PO BID [facility] Last Admin: 10/17/17 09:30 Dose: 25 mg Meropenem 250 mg/ Sodium (Chloride) 100 mls @ 100 mls/hr IVPB Q12H CARLOS PRN Reason: Protocol Stop: 10/23/17 14:46 Last Admin: 10/17/17 02:26 Dose: 100 mls/hr Linezolid (Zyvox 600mg/300ml D5w) 600 mg in 300 mls @ 200 mls/hr IVPB Q12 CARLOS PRN Reason: Protocol Stop: 10/23/17 22:01 Last Admin: 10/17/17 09:31 Dose: 200 mls/hr Insulin Human NPH (Humulin N) 20 units SC QPM [facility] Last Admin: 10/16/17 18:09 Dose: Not Given Insulin Human Regular (Humulin R High) 0 units SC ACHS CARLOS PRN Reason: Protocol Last Admin: 10/17/17 09:32 Dose: Not Given Latanoprost (Xalatan Opht) 0 ml OU HS [facility] Last Admin: 10/16/17 21:55 Dose: 2.5 ml Levothyroxine Sodium (Synthroid) 25 mcg PO 0600 [facility] Last Admin: 10/17/17 05:23 Dose: 25 mcg Loratadine (Claritin) 10 mg PO HS [facility] Last Admin: 10/16/17 21:56 Dose: 10 mg Metoprolol Tartrate (Lopressor) 25 mg PO BID [facility] Montelukast Sodium (Singulair) 10 mg PO [facility] Last Admin: 10/16/17 21:57 Dose: 10 mg Multivitamins (Thera Tab) 1 tab PO DAILY [facility] Last Admin: 10/17/17 09:30 Dose: 1 tab Salmeterol Xinafoate /Fluticaso [Advair Hfa 230-21] 1 puff IH BID [facility] Last Admin: 10/17/17 09:32 Dose: Not Given Nglqv-2-Enbh Ethyl Esters (Lovaza) 2 gm PO BID [facility] Last Admin: 10/17/17 09:31 Dose: 1 gm Oxycodone/Acetaminophen (Percocet 10/325 Mg Tab) 1 tab PO Q6H PRN PRN Reason: Pain, moderate (4-7) Last Admin: 10/16/17 18:08 Dose: 1 tab Pantoprazole Sodium (Protonix Ec Tab) 40 mg PO 0600 [facility] Last Admin: 10/17/17 05:23 Dose: 40 mg Pregabalin (Lyrica) 50 mg PO HS [facility] Last Admin: 10/16/17 21:57 Dose: 50 mg Sevelamer HCl (Renagel) 1,600 mg PO [facility] Last Admin: 10/17/17 08:31 Dose: 1,600 mg Sodium Chloride ([place] Nasal [place]) 0 ml NS Q2H PRN PRN Reason: Nasal congestion Tamsulosin HCl (Flomax) 0.4 mg PO HS [facility] Last Admin: 10/16/17 21:57 Dose: 0.4 mg Ticagrelor (Brilinta) 90 mg PO BID [facility] Last Admin: 10/16/17 17:46 Dose: Not Given - Labs Labs: 10/17/17 08:00 10/17/17 08:00 PT 19.7 SECONDS 10/17/17 08:00 INR 1.69 10/17/17 08:00 APTT 33.4 Seconds 10/16/17 13:30 - Constitutional Appears: Well, Non-toxic, No Acute Distress - Head Exam Head Exam: ATRAUMATIC, NORMOCEPHALIC - Eye Exam Eye Exam: Normal appearance. absent: Conjunctival injection, Scleral icterus - ENT Exam ENT Exam: Mucous Membranes Moist, Normal Oropharynx - Respiratory Exam Respiratory Exam: NORMAL BREATHING PATTERN. absent: Accessory Muscle Use, Respiratory Distress - Cardiovascular Exam Cardiovascular Exam: RRR - GI/Abdominal Exam GI & Abdominal Exam: absent: Distended - Extremities Exam Extremities Exam: absent: Calf Tenderness, Pedal Edema, Tenderness Additional comments: BL lower leg chronic skin changes. Foot with incision well approximated by fitz but black, necrotic tissue surrounding it. Wound on the sole of the foot with purulent fluid drainage. No surrounding erythema or crepitus. - Neurological Exam Neurological Exam: Alert, Awake, Oriented x3 - Psychiatric Exam Psychiatric exam: Normal Affect, Normal Mood - Skin Skin Exam: Normal Color, Warm Assessment and Plan - Assessment and Plan (Free Text) Assessment: 52M with chronic right foot wound refractory to debridements and long term care pharmacist IV antibiotics Plan: Plan for OR or Monday--will schedule for the day after HD Trend patient's CBC: currently hgb 7.0 and platelets 89. Recommend administering 1unit of blood with HD 1 day pre-op and one day of surgery. Will consider platelet supplementation if it continues to drop Follow up cardiology and pulmonology recs for operative risk evaluation and optimization -Cardiology has evaluated patient as high risk for OR but acceptable given necessity of surgery -Awaiting pulm recs Continue antibiotics per ID recs Hold Brilinta until OR, may continue ASA until day of OR PRN pain medication AE hose for the left leg Discussed and examined with Dr. Renan Mejía, PGY2
--- NOTE | 2017-10-17 12:38 | PN ---
Copied To: Jaspreet Forbes MD Attending MD: DATE: 10/17/2017 SUBJECTIVE: The patient is in bed, in no acute distress, nontoxic. PHYSICAL EXAMINATION: VITAL SIGNS: On exam, temperature is 98, blood pressure is 106/36, respiratory rate of 18. HEENT: Examination of HEENT is unremarkable. NECK: Supple. LUNGS: Have decreased breath sounds. HEART: Normal S1, S2. ABDOMEN: Soft, nontender. LABORATORY DATA: Laboratory examination reveals a white count of 7.4, hemoglobin is noted. Chemistries reveals a BUN of 45, creatinine of 7.7. Microbiology is noted. ASSESSMENT AND PLAN: A 52-year-old male who was seen in [facility], admitted with right transmetatarsal amputation stump gangrene and the patient with end-stage renal disease, on hemodialysis, diabetes, obesity, coronary artery disease, retinopathy, history of pancreatitis, on Zyvox, meropenem. The patient is planned for [id number] amputation and we will follow closely with you. Review of orders confirms the patient's meropenem to be active and linezolid to be active. Jaspreet Forbes MD
[2017-10-17] MEDS: Oxycodone/Acetaminophen 10/325 mg Tab PO PRN (12:48)
--- NOTE | 2017-10-17 14:21 | PN ---
Copied To: Jarred Erickson MD Attending MD: Jarred Erickson MD. DATE: 10/17/2017 REASON FOR CONSULTATION AND FOLLOWUP: Preoperative evaluation, risk stratification for possible right BKA, nonhealing foot, status post TMA recently, cardiac evaluation. SUBJECTIVE: Patient denies any chest pain, shortness of breath or any palpitations. Crying and depressed for losing his right foot. OBJECTIVE: GENERAL: Lying flat in the bed, not in apparent distress, but appears mildly depressed, talking to his mom. VITAL SIGNS: Temperature afebrile, heart rate 64, blood pressure 106/36. HEENT: PERRLA, intact. NECK: Supple. No carotid bruits. No thyromegaly. CHEST: Clear to auscultation. HEART: S1 and S2 regular. ABDOMEN: Soft. EXTREMITIES: Clubbing and cyanosis negative. LABORATORY DATA: WBC 7.4, hemoglobin 7, hematocrit 22.4, platelet count 86. Chemistries shows sodium 134, potassium 5.2, chloride 97, carbon dioxide 29, anion gap of 14, BUN 45, creatinine 7.7. IMPRESSION: This is a 52-year-old male with past medical history significant for uncontrolled diabetes, leading to full-blown complications of diabetes including diabetic nephropathy, neuropathy, retinopathy, end-stage renal disease, on dialysis, coronary artery disease, peripheral arterial disease, status post recently stenting in 05/2017, two drug-eluting stents after fractional flow reserve was found to be abnormal. History of permanent pacemaker in 06/2017, symptomatic junctional bradycardia and syncope, admitted with nonhealing ulcer who recently had right transmetatarsal amputation, now requires below-knee amputation. Discussed with Dr. Julius Urrutia, surgeon who is going to do amputation. Since the patient had recently a stent placed in left anterior descending artery, suggested to continue baby aspirin. Dr. Julius Urrutia agreed that he can operate the patient on aspirin, so leave him on aspirin, hold the Brilinta for 48 hours, give 2 units of packed red blood cells today during the dialysis to keep hemoglobin around 10. Continue perioperative beta-valerie. We will clear the patient for surgery as a moderate to high risk because of underlying comorbidity. No absolute contraindication. No evidence of ischemia. No evidence of arrhythmia. No evidence of congestive heart failure. We will follow with you. Thank you, Dr. Potter, for providing us the opportunity in taking care of the patient, Jason Berger. Jarred Erickson MD
--- NOTE | 2017-10-17 16:34 | CP.PCM.CON ---
<Marciano Clemente - Last Filed: 10/17/17 16:30> History of Present Illness - History of Present Illness History of Present Illness: Podiatry Progress Note for attending Dr. Quevedo 52M with PMH COPD, history of bilateral HCAP, history of sepsis with gastroenteritis and C. diff. associated diarrhea, ESRD on HD, DM, obesity with BMI 34, CAD S/P PCI, retinopathy, history of pancreatitis seen at bedside for right foot cellulitis with wet gangrene S/P TMA. Patient [place] [facility] [place] Dr. Villanueva for admission to the floors with suggestion that patient undergo BKA of right leg. Dr. Urrutia was placed on consult for surgical planning. Patient is AAO x 3 and NAD at time of visit. Denies any acute overnight events. Denies any new pedal complaints. Denies any recent N/V/F /C/CP/SOB/D/posterior calf pain when squeezed. Review of Systems - Review of Systems All systems: reviewed and no additional remarkable complaints except Review of Systems: as per HPI Past Patient History - Infectious Disease Hx of Infectious Diseases: None - Tetanus Immunizations Tetanus Immunization: Up to Date - Past Medical History & Family History Past Medical History?: Yes - Past Social History Smoking Status: Never Smoked - CARDIAC Hx Cardiac Disorders: Yes (mi) Hx Congestive Heart Failure: Yes Hx Hypercholesterolemia: Yes Hx Hypertension: Yes Hx Pacemaker: Yes (medtronic) Hx Peripheral Edema: Yes (rle +1) Hx Peripheral Vascular Disease: Yes Other/Comment: carotid stenosis, vascular sx av shunt laura, angioplasty, circulatory problems, cellulitis - PULMONARY Hx Respiratory Disorders: Yes Hx Asthma: Yes Hx Bronchitis: Yes Hx Chronic Obstructive Pulmonary Disease (COPD): Yes Hx Pneumonia: Yes Hx Respiratory Tract Infection: Yes Hx Sleep Apnea: Yes (c pap) - NEUROLOGICAL Hx Neurological Disorder: Yes HX Cerebrovascular Accident: Yes (r side weakness) Hx Dizziness: Yes Hx Transient Ischemic Attacks (TIA): Yes Other/Comment: peripheral neuropathy, numbness, visual disturbances - HEENT Hx HEENT Problems: Yes (BILATERAL EYE WITH BLURRY VISION) Hx Cataracts: Yes (HAD SX 05/29/12, r with iol) Hx Epistaxis: Yes Other/Comment: left eye cornea transplant,RENAL RETINOPATHY, glasses, blurred vision - RENAL Date of Last Dialysis Treatment: 10/13/17 - ENDOCRINE/METABOLIC Hx Endocrine Disorders: Yes Hx Diabetes Mellitus Type 1: Yes Hx Diabetes Mellitus Type 2: Yes Hx Hypothyroidism: Yes - HEMATOLOGICAL/ONCOLOGICAL Hx Blood Disorders: Yes (vre r ft wound 09/18/17) Hx Anemia: Yes (blood transfusions) Hx Cancer: No Other/Comment: iron infusions - INTEGUMENTARY Hx Dermatological Problems: Yes Other/Comment: generalized multiple skin discolorations and dry wounds over body , rle r ft dressing dry and intact all toes amputated chronic wound ulceration and foul odor heel ulceration gangrrene and bone exposed, rle skin discolorations +1 edema and tightness, inner right ankle1.5cm x 0.5cm deep red dry wound surrounded by pink red skin throbbing pain, healing 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,left hand 3rd finger 0/7cm x 0.5cm round dry brown wound, dry brown wound 1.5cm x 1.5cm to ball of left foot not opened - MUSCULOSKELETAL/RHEUMATOLOGICAL Hx Falls: No - GASTROINTESTINAL Hx Gastrointestinal Disorders: Yes (cdif 01/14/17) Hx Gall Bladder Disease: Yes (CHOLECYSTECTOMY) Hx Gastroesophageal Reflux: Yes Hx Liver Failure: Yes (CKD) Hx Pancreatitis: Yes Other/Comment: colon polyps, poor appetite - GENITOURINARY/GYNECOLOGICAL Hx Genitourinary Disorders: Yes (esrd on HD MWF) Hx Hematuria: Yes Hx Prostate Problems: Yes (bph) Hx Urinary Tract Infection: Yes - PSYCHIATRIC Hx Substance Use: No - SURGICAL HISTORY Hx Surgeries: Yes Hx Cardiac Catheterization: Yes Hx Cholecystectomy: Yes Hx Coronary Stent: Yes (x2 06/13/17) Hx Mastectomy: No Other/Comment: transmetatarsal amputation of r ft and debridement 10/06/17, insuin pump inserted and removed, l av fistula, picc choco, ptca x2 stents x4, - ANESTHESIA Hx Anesthesia: Yes Hx Anesthesia Reactions: No Hx Malignant Hyperthermia: No Meds Allergies/Adverse Reactions: Allergies Allergy/AdvReac Type Severity Reaction Status Date / Time insulin aspart [From Novolog] Allergy Intermediate RASH Verified 10/02/17 19:52 moxifloxacin Allergy Intermediate RASH Verified 10/02/17 19:52 Penicillins Allergy Intermediate RASH Verified 10/02/17 19:52 insulin regular Allergy ITCHING Verified 10/02/17 19:52 [From Novolin R Regular U-100 Insuln] - Medications Medications: Current Medications Albuterol/Ipratropium (Duoneb 3 Mg/0.5 Mg (3 Ml) Ud) 3 ml IH [id number] PRN PRN Reason: Shortness of Breath Aspirin (Ecotrin) 81 mg PO DAILY [facility] Last Admin: 10/17/17 09:30 Dose: 81 mg Atorvastatin Calcium (Lipitor) 40 mg PO DIN [facility] Last Admin: 10/16/17 17:47 Dose: 40 mg Calcium Acetate (Phoslo) 1,334 mg PO WM [facility] Last Admin: 10/17/17 08:31 Dose: 1,334 mg Diphenhydramine HCl (Benadryl) 25 mg PO HS PRN PRN Reason: Insomnia Last Admin: 10/16/17 22:05 Dose: 25 mg Ergocalciferol (Drisdol 50,000 Intl Units Cap) 1 cap PO WED [facility] Fenofibrate (Tricor) 145 mg PO DAILY [facility] Last Admin: 10/17/17 09:30 Dose: 145 mg Heparin Sodium (Porcine) (Heparin) 5,000 units SC Q12 [facility] PRN Reason: Protocol Last Admin: 10/17/17 09:29 Dose: 5,000 units Hydralazine HCl (Apresoline) 25 mg PO BID [facility] Last Admin: 10/17/17 09:30 Dose: 25 mg Meropenem 250 mg/ Sodium (Chloride) 100 mls @ 100 mls/hr IVPB Q12H [facility] PRN Reason: Protocol Stop: 10/23/17 14:46 Last Admin: 10/17/17 02:26 Dose: 100 mls/hr Linezolid (Zyvox 600mg/300ml D5w) 600 mg in 300 mls @ 200 mls/hr IVPB Q12 [facility] PRN Reason: Protocol Stop: 10/23/17 22:01 Last Admin: 10/17/17 09:31 Dose: 200 mls/hr Insulin Human NPH (Humulin N) 20 units SC QPM [facility] Last Admin: 10/16/17 18:09 Dose: Not Given Insulin Human Regular (Humulin R High) 0 units SC ACHS [facility] PRN Reason: Protocol Last Admin: 10/17/17 09:32 Dose: Not Given Latanoprost (Xalatan Opht) 0 ml OU HS [facility] Last Admin: 10/16/17 21:55 Dose: 2.5 ml Levothyroxine Sodium (Synthroid) 25 mcg PO 0600 [facility] Last Admin: 10/17/17 05:23 Dose: 25 mcg Loratadine (Claritin) 10 mg PO [facility] Last Admin: 10/16/17 21:56 Dose: 10 mg Metoprolol Tartrate (Lopressor) 25 mg PO BID [facility] Montelukast Sodium (Singulair) 10 mg PO HS [facility] Last Admin: 10/16/17 21:57 Dose: 10 mg Multivitamins (Thera Tab) 1 tab PO DAILY [facility] Last Admin: 10/17/17 09:30 Dose: 1 tab Salmeterol Xinafoate /Fluticaso [Advair Hfa 230-21] 1 puff IH BID [facility] Last Admin: 10/17/17 09:32 Dose: Not Given Buomn-6-Pvrs Ethyl Esters (Lovaza) 2 gm PO BID [facility] Last Admin: 10/17/17 09:31 Dose: 1 gm Oxycodone/Acetaminophen (Percocet 10/325 Mg Tab) 1 tab PO Q6H PRN PRN Reason: Pain, moderate (4-7) Last Admin: 10/17/17 12:48 Dose: 1 tab Pantoprazole Sodium (Protonix Ec Tab) 40 mg PO 0600 [facility] Last Admin: 10/17/17 05:23 Dose: 40 mg Pregabalin (Lyrica) 50 mg PO [facility] Last Admin: 10/16/17 21:57 Dose: 50 mg Sevelamer HCl (Renagel) 1,600 mg PO WM [facility] Last Admin: 10/17/17 08:31 Dose: 1,600 mg Sodium Chloride ([place] Nasal [place]) 0 ml NS Q2H PRN PRN Reason: Nasal congestion Tamsulosin HCl (Flomax) 0.4 mg PO [facility] Last Admin: 10/16/17 21:57 Dose: 0.4 mg Ticagrelor (Brilinta) 90 mg PO BID [facility] Last Admin: 10/16/17 17:46 Dose: Not Given Physical Exam - Constitutional Appears: Well, Non-toxic, No Acute Distress - Extremities Exam Additional comments: RLE focused exam: Vasc: DP/PT pulses faintly palpable b/l. CFT to dorsal foot < 3 seconds. Moderate edema noted to TMA site Derm: distal TMA site flap is coapted and reapproximated with sutures and fitz. No unraveling of sutures or backing out of fitz noted. No dehiscence appreciated to the flap. No purulence drainage. Serosangious drainage noted to the right surgical site opening plantarly. There is an open large ulceration measuring approximately 10 cm x 7 cm x 2 cm on the plantar medial aspect of right foot, wound base mixture of fibrotic and necrotic tissue with serous drainage and mild malodor. Neuro: Epicritic and protective sensation grossly absent Ortho: POP to plantar ulceration site. Ankle AROM and passive ROM WNL - Neurological Exam Neurological exam: Alert, Oriented x3 - Psychiatric Exam Psychiatric exam: Normal Affect, Normal Mood Results - Vital Signs Recent Vital Signs: Last Vital Signs Temp 98.1 F 10/17/17 15:22 Pulse 70 10/17/17 15:22 Resp 18 10/17/17 15:22 BP 105/42 L 10/17/17 15:22 Pulse Ox 98 10/17/17 08:00 - Labs Result Diagrams: 10/17/17 08:00 10/17/17 08:00 Labs: Laboratory Results - last 24 hr 10/16/17 10/16/17 10/16/17 14:40 16:13 21:02 WBC RBC Hgb Hct MCV MCH MCHC RDW Plt Count MPV Gran % Lymph % (Auto) [place] % (Auto) Eos % (Auto) Baso % (Auto) Gran # Lymph # (Auto) [place] # (Auto) Eos # (Auto) Baso # (Auto) PT INR Sodium Potassium Chloride Carbon Dioxide Anion Gap BUN Creatinine Est GFR ( Amer) Est GFR (Non-Af Amer) POC Glucose (mg/dL) 133 H 165 H Random Glucose Hemoglobin A1c Calcium Iron TIBC % Saturation Ferritin Triglycerides Cholesterol LDL Cholesterol Direct HDL Cholesterol TSH 3rd Generation Blood Type B POSITIVE Antibody Screen Negative Crossmatch See Detail BBK History Checked Patient has bt 10/17/17 10/17/17 10/17/17 06:41 08:00 08:00 WBC 7.4 RBC 2.42 L Hgb 7.0 L Hct 22.4 L MCV 92.6 MCH 28.9 MCHC 31.3 RDW 18.9 H Plt Count 86 L MPV 10.4 Gran % 68.2 H Lymph % (Auto) 20.3 L [place] % (Auto) 7.7 H Eos % (Auto) 3.5 Baso % (Auto) 0.3 Gran # 5.07 Lymph # (Auto) 1.5 [place] # (Auto) 0.6 Eos # (Auto) 0.3 Baso # (Auto) 0.02 PT INR Sodium 134 Potassium 5.2 H Chloride 97 L Carbon Dioxide 29 Anion Gap 14 BUN 45 H Creatinine 7.7 H* Est GFR ( Amer) 9 Est GFR (Non-Af Amer) 7 POC Glucose (mg/dL) 119 H Random Glucose 119 H Hemoglobin A1c Calcium 8.7 Iron TIBC % Saturation Ferritin 659.0 Triglycerides 77 Cholesterol < 50 L LDL Cholesterol Direct < 30 HDL Cholesterol 19 L TSH 3rd Generation Blood Type Antibody Screen Crossmatch BBK History Checked 10/17/17 10/17/17 10/17/17 08:00 08:00 08:00 WBC RBC Hgb Hct MCV MCH MCHC RDW Plt Count MPV Gran % Lymph % (Auto) [place] % (Auto) Eos % (Auto) Baso % (Auto) Gran # Lymph # (Auto) [place] # (Auto) Eos # (Auto) Baso # (Auto) PT 19.7 INR 1.69 Sodium Potassium Chloride Carbon Dioxide Anion Gap BUN Creatinine Est GFR ( Amer) Est GFR (Non-Af Amer) POC Glucose (mg/dL) Random Glucose Hemoglobin A1c 6.2 Calcium Iron TIBC % Saturation Ferritin Triglycerides Cholesterol LDL Cholesterol Direct HDL Cholesterol TSH 3rd Generation 8.39 H Blood Type Antibody Screen Crossmatch BBK History Checked 10/17/17 10/17/17 10/17/17 08:00 11:24 16:18 WBC RBC Hgb Hct MCV MCH MCHC RDW Plt Count MPV Gran % Lymph % (Auto) [place] % (Auto) Eos % (Auto) Baso % (Auto) Gran # Lymph # (Auto) [place] # (Auto) Eos # (Auto) Baso # (Auto) PT INR Sodium Potassium Chloride Carbon Dioxide Anion Gap BUN Creatinine Est GFR ( Amer) Est GFR (Non-Af Amer) POC Glucose (mg/dL) 163 H 136 H Random Glucose Hemoglobin A1c Calcium Iron 140 TIBC 220 L % Saturation 64 H Ferritin Triglycerides Cholesterol LDL Cholesterol Direct HDL Cholesterol TSH 3rd Generation Blood Type Antibody Screen Crossmatch BBK History Checked Assessment & Plan - Assessment and Plan (Free Text) Assessment: 52M seen at bedside for right foot cellulitis with wet gangrene S/P TMA. Patient for BKA on 09/[address] Urrutia Plan: Patient seen and evaluated with attending Dr. Quevedo Afebrile, absent leukocytosis Plantar wound cx: VRE Continue IV abx per ID Patient for R BKA with Surgical team pending medical optimization No plan for further podiatric procedures at this time Wound dressed with xeroform, ABD, gauze, [facility] will continue with wound care until surgery - Date & Time Date: 10/17/17 Time: 16:39 <Adria Quevedo - Last Filed: 10/18/17 19:06> Meds - Medications Medications: Current Medications Albuterol/Ipratropium (Duoneb 3 Mg/0.5 Mg (3 Ml) Ud) 3 ml IH [id number] PRN PRN Reason: Shortness of Breath Aspirin (Ecotrin) 81 mg PO DAILY [facility] Last Admin: 10/18/17 12:33 Dose: 81 mg Atorvastatin Calcium (Lipitor) 40 mg PO DIN [facility] Last Admin: 10/18/17 17:40 Dose: 40 mg Calcium Acetate (Phoslo) 1,334 mg PO WM [facility] Last Admin: 10/18/17 17:39 Dose: 1,334 mg Diphenhydramine HCl (Benadryl) 25 mg PO HS PRN PRN Reason: Insomnia Last Admin: 10/17/17 21:21 Dose: 25 mg Ergocalciferol (Drisdol 50,000 Intl Units Cap) 1 cap PO WED [facility] Last Admin: 10/18/17 12:32 Dose: 1 cap Fenofibrate (Tricor) 145 mg PO DAILY [facility] Last Admin: 10/18/17 12:32 Dose: 145 mg Heparin Sodium (Porcine) (Heparin) 5,000 units SC Q12 [facility] PRN Reason: Protocol Last Admin: 10/18/17 12:31 Dose: 5,000 units Hydralazine HCl (Apresoline) 25 mg PO BID [facility] Last Admin: 10/18/17 12:31 Dose: 25 mg Linezolid (Zyvox 600mg/300ml D5w) 600 mg in 300 mls @ 200 mls/hr IVPB Q12 [facility] PRN Reason: Protocol Stop: 10/23/17 22:01 Last Admin: 10/18/17 12:30 Dose: 200 mls/hr Meropenem 250 mg/ Sodium (Chloride) 100 mls @ 100 mls/hr IVPB Q12H [facility] PRN Reason: Protocol Stop: 10/23/17 06:01 Last Admin: 10/18/17 17:39 Dose: 100 mls/hr Micafungin Sodium 100 mg/ (Sodium Chloride) 100 mls @ 100 mls/hr IV DAILY [facility] PRN Reason: Protocol Stop: 10/26/17 10:01 Last Admin: 10/18/17 12:24 Dose: 100 mls/hr Insulin Human NPH (Humulin N) 20 units SC QPM [facility] Last Admin: 10/17/17 18:09 Dose: Not Given Insulin Human Regular (Humulin R High) 0 units SC ACHS [facility] PRN Reason: Protocol Last Admin: 10/18/17 12:33 Dose: Not Given Latanoprost (Xalatan Opht) 0 ml OU HS [facility] Last Admin: 10/16/17 21:55 Dose: 2.5 ml Levothyroxine Sodium (Synthroid) 25 mcg PO 0600 [facility] Last Admin: 10/18/17 06:05 Dose: 25 mcg Loratadine (Claritin) 10 mg PO HS [facility] Last Admin: 10/17/17 21:22 Dose: 10 mg Metoprolol Tartrate (Lopressor) 25 mg PO BID [facility] Last Admin: 10/18/17 12:32 Dose: 25 mg Montelukast Sodium (Singulair) 10 mg PO HS [facility] Last Admin: 10/17/17 21:21 Dose: 10 mg Multivitamins (Thera Tab) 1 tab PO DAILY [facility] Last Admin: 10/18/17 12:32 Dose: 1 tab Salmeterol Xinafoate /Fluticaso [Advair Hfa 230-21] 1 puff IH BID [facility] Last Admin: 10/17/17 18:15 Dose: Not Given Syqot-5-Hvel Ethyl Esters (Lovaza) 2 gm PO BID [facility] Last Admin: 10/18/17 17:39 Dose: 2 gm Oxycodone/Acetaminophen (Percocet 10/325 Mg Tab) 1 tab PO Q6H PRN PRN Reason: Pain, moderate (4-7) Last Admin: 10/18/17 13:39 Dose: 1 tab Pantoprazole Sodium (Protonix Ec Tab) 40 mg PO 0600 [facility] Last Admin: 10/18/17 06:05 Dose: 40 mg Pregabalin (Lyrica) 50 mg PO HS [facility] Last Admin: 10/17/17 21:23 Dose: 50 mg Sevelamer HCl (Renagel) 1,600 mg PO WM [facility] Last Admin: 10/17/17 18:14 Dose: 1,600 mg Sodium Chloride ([place] Nasal [place]) 0 ml NS Q2H PRN PRN Reason: Nasal congestion Tamsulosin HCl (Flomax) 0.4 mg PO [facility] Last Admin: 10/17/17 21:21 Dose: 0.4 mg Ticagrelor (Brilinta) 90 mg PO BID [facility] Results - Vital Signs Recent Vital Signs: Last Vital Signs Temp 98.1 F 10/18/17 16:35 Pulse 81 10/18/17 16:35 Resp 18 10/18/17 16:35 BP 151/40 H 10/18/17 16:35 Pulse Ox 100 10/18/17 16:35 - Labs Result Diagrams: 10/18/17 06:00 10/18/17 06:00 Labs: Laboratory Results - last 24 hr 10/16/17 10/17/17 10/17/17 14:40 08:00 21:37 WBC RBC Hgb Hct MCV MCH MCHC RDW Plt Count MPV Gran % Lymph % (Auto) [place] % (Auto) Eos % (Auto) Baso % (Auto) Gran # Lymph # (Auto) [place] # (Auto) Eos # (Auto) Baso # (Auto) PT 19.7 Sodium Potassium Chloride Carbon Dioxide Anion Gap BUN Creatinine Est GFR ( Amer) Est GFR (Non-Af Amer) POC Glucose (mg/dL) 173 H Random Glucose Calcium Total Bilirubin AST ALT Alkaline Phosphatase Troponin I Total Protein Albumin Globulin Albumin/Globulin Ratio Blood Type B POSITIVE Antibody Screen Negative Crossmatch See Detail BBK History Checked Patient has bt 10/17/17 10/18/17 10/18/17 22:51 03:10 06:00 WBC 6.9 RBC 2.99 L Hgb 8.7 L Hct 27.4 L MCV 91.6 MCH 29.1 MCHC 31.8 RDW 17.4 H Plt Count 71 L MPV 10.4 Gran % 73.6 H Lymph % (Auto) 14.7 L [place] % (Auto) 7.8 H Eos % (Auto) 3.6 Baso % (Auto) 0.3 Gran # 5.09 Lymph # (Auto) 1.0 L [place] # (Auto) 0.5 Eos # (Auto) 0.3 Baso # (Auto) 0.02 PT Sodium Potassium Chloride Carbon Dioxide Anion Gap BUN Creatinine Est GFR ( Amer) Est GFR (Non-Af Amer) POC Glucose (mg/dL) 149 H Random Glucose Calcium Total Bilirubin AST ALT Alkaline Phosphatase Troponin I 0.05 D Total Protein Albumin Globulin Albumin/Globulin Ratio Blood Type Antibody Screen Crossmatch BBK History Checked 10/18/17 10/18/17 10/18/17 06:00 06:53 12:25 WBC RBC Hgb Hct MCV MCH MCHC RDW Plt Count MPV Gran % Lymph % (Auto) [place] % (Auto) Eos % (Auto) Baso % (Auto) Gran # Lymph # (Auto) [place] # (Auto) Eos # (Auto) Baso # (Auto) PT Sodium 132 Potassium 4.4 Chloride 97 L Carbon Dioxide 28 Anion Gap 11 BUN 30 H Creatinine 4.9 H Est GFR ( Amer) 15 Est GFR (Non-Af Amer) 12 POC Glucose (mg/dL) 124 H 87 Random Glucose 125 H Calcium 7.8 L Total Bilirubin 1.0 AST 38 ALT 24 Alkaline Phosphatase 52 Troponin I Total Protein 6.4 Albumin 2.5 L Globulin 3.9 Albumin/Globulin Ratio 0.6 L Blood Type Antibody Screen Crossmatch BBK History Checked Attending/Attestation - Attestation I have personally seen and examined this patient.: Yes I have fully participated in the care of the patient.: Yes I have reviewed all pertinent clinical information: Yes
[2017-10-17] MEDS: Insulin Human NPH 1 UNITS/0.01 ML SC SCH (18:09)
[2017-10-17] MEDS ORDERED: Alum-Mag Hydrox-Simethicone Susp (30 mL) PO ONE (22:31)
[2017-10-17] MEDS ORDERED: DiphenhydrAMINE 50 mg/ml Inj IVP STA (22:31)
--- NOTE | 2017-10-18 01:58 | CON ---
Copied To: Jarred Escalera MD Attending MD: Jarred Escalera MD. DATE: 10/18/2047 PULMONARY CONSULT REFERRING PHYSICIAN: Gallo Potter MD. REASON FOR CONSULT: Chronic obstructive lung disease, obstructive sleep apnea syndrome. HISTORY OF PRESENT ILLNESS: This is a 52-year-old gentleman, well known to me from hospital and previous admission with multiple medical issues including sleep apnea syndrome, coronary artery disease, history of coronary stent, has a chronic obstructive lung disease, peripheral vascular disease, legally blind, peripheral neuropathy, who recently had right foot partial amputation, secondary nonhealing ulcer, been in rehab, has a nonhealing incision site with very poor right lower extremity blood supply. Scheduled for BKA. He is not very compliant with the CPAP and BiPAP. No cough. No sputum production. No nausea, no vomiting, no diarrhea reported. PAST MEDICAL HISTORY: As per history present illness. FAMILY HISTORY: Positive for renal failure, diabetes, stroke. SOCIAL HISTORY: Never smoked. Denies any alcohol use. MEDICATIONS: The patient is on hydralazine 25 mg twice a day; Benadryl 25 mg at bedtime p.r.n.; Brilinta 90 mg twice a day, which is placed on hold in anticipation of surgery; Claritin is 10 mg at bedtime; vitamin D 50,000 units weekly; DuoNeb every 6 hours p.r.n.; Ecotrin 81 mg daily; Flomax 0.4 mg at bedtime; heparin 5000 subcu every 12 hours; insulin coverage; Lipitor 40 mg daily; metoprolol tartrate 25 mg twice a day; omega-3 at 2 g twice a day; Lyrica 50 mg p.o. daily; meropenem 250 mg every 12 hours; nasal saline 2 sprays every 2 hours p.r.n.; Percocet 10/325 one tab every 6 hours p.r.n.; PhosLo with the meals; Protonix 40 mg daily; Renagel 1600 mg with the meals; also getting Advair HFA 1 puff twice a day; Singulair 10 mg at bedtime; Synthroid 25 mcg daily; multivitamins daily; Tricor 145 mg daily; Zyvox 600 mg every 12 hours. REVIEW OF SYSTEMS: No headache, no rhinitis. Gets short of breath with exertion. No chest pain. No nausea. No vomiting. No diarrhea. Has a right foot discomfort. No left leg swelling. PHYSICAL EXAMINATION: GENERAL: Lying in the bed, no acute distress. VITAL SIGNS: Temperature is 98, heart rate is 70, respiratory rate is 18, blood pressure 105/42, pulse ox 98% on room air. HEENT: Moist mucous membrane. Crowded airway. Mallampati score is 4. NECK: Supple. No JVD. LUNGS: Have a fair airflow with few rhonchi. HEART: S1 and S2. ABDOMEN: Soft, nontender, no organomegaly. EXTREMITIES: Has a partially amputated right foot. Decreased flow to the right leg. NEUROLOGICAL: Awake, alert. Follows simple command. LABORATORY DATA: Shows hemoglobin 7, hematocrit 22.4, WBC 7.4, platelet is 86. INR 1.69. Blood sugar 173. Iron 140. TSH 8.39. Sodium 134, potassium 5.2, chloride 97, bicarbonate 29, BUN 45, creatinine 7.7, hemoglobin A1c 6.2, calcium 8.7, iron 140, ferritin 659, triglyceride 77, TSH 8.39. Microbiology: Blood culture, there is no growth. IMPRESSION AND PLAN: Severe peripheral vascular disease with nonhealing right foot ulcer requiring a partial amputation, presently has a nonhealing incision site, scheduled for right leg below-knee amputation. Other issues are he has asthma, sleep apnea syndrome, cardiomyopathy, coronary artery disease, pulmonary hypertension, diabetes, hypertension, peripheral neuropathy, legally blind, also has a complaint of insomnia. We will continue inhaled bronchodilator. Keep head at 45 degrees. Not very compliant with the continuous positive airway pressure. If he undergoes general anesthesia, need close cardiopulmonary monitoring. May use bilevel positive airway pressure if sedated. Antibiotics as per Infectious Diseases. Thank you and we will follow with you. Jarred Escalera MD
[2017-10-18] MEDS: Levothyroxine 25 MCG TAB PO SCH (06:05)
[2017-10-18] MEDS: Pantoprazole 40 mg EC Tab PO SCH (06:05)
[2017-10-18 06:35] LABS: BASO # 0.02 K/mm3 (0.0-2.0); BASO % 0.3 % (0.0-3.0); EOS # 0.3 (0.0-0.7); EOS % 3.6 % (1.5-5.0); GRAN # 5.09 (1.4-6.5); GRAN % 73.6 % (50.0-68.0); HEMOGLOBIN 8.7 g/dL (14.0-18.0); LYMPH % 14.7 % (22.0-35.0); MEAN CELL VOLUME 91.6 fl (80.0-105.0); MEAN CORPUSCULAR HEMOGLOBIN 29.1 pg (25.0-35.0); MEAN CORPUSCULAR HGB CONC 31.8 g/dl (31.0-37.0); MEAN PLATELET VOLUME 10.4 fl (7.0-11.0); MONO # 0.5 (0.1-0.6); MONO % 7.8 % (1.0-6.0); RBC 2.99 10^6/uL (3.5-6.1); RED CELL DISTRIBUTION WIDTH 17.4 % (11.5-14.5); WHITE BLOOD COUNT 6.9 10^3/ul (4.5-11.0)
[2017-10-18 07:08] LABS: ALB/GLOB RATIO 0.6 (1.1-1.8); ALBUMIN 2.5 g/dL (3.0-4.8); CALCIUM 7.8 mg/dL (8.4-10.5)
--- NOTE | 2017-10-18 09:04 | CP.PCM.PN ---
<Marciano Clemente - Last Filed: 10/18/17 09:00> Subjective - Date & Time of Evaluation Date of Evaluation: 10/18/17 Time of Evaluation: 09:00 - Subjective Subjective: Podiatry Progress Note for Dr. Villanueva 52M seen at bedside for infected, necrosing right plantar TMA stump. Patient is for BKA tomorrow with Dr. Urrutia. Patient is AAO x 3 and NAD, resting comfortably in bed at time of visit. He denies any pain to the area at this time but states that he is extremely anxious and feeling depressed over his current situation. He states that he would like to speak with a psychiatrist. Patient denies any other acute overnight events or new pedal complaints. He is scheduled for HD today. Denies any recent N/V/F/C/CP/SOB/D/posterior calf pain when squeezed. Objective - Vital Signs/Intake and Output Vital Signs (last 24 hours): Temp Pulse Resp BP Pulse Ox 98.8 F 62 20 100/40 L 100 10/18/17 07:31 10/18/17 07:31 10/18/17 07:31 10/18/17 07:31 10/18/17 07:31 Intake and Output: 10/18/17 10/18/17 06:59 18:59 Intake Total 360 Balance 360 - Medications Medications: Current Medications Albuterol/Ipratropium (Duoneb 3 Mg/0.5 Mg (3 Ml) Ud) 3 ml IH [id number] PRN PRN Reason: Shortness of Breath Aspirin (Ecotrin) 81 mg PO DAILY [facility] Last Admin: 10/17/17 09:30 Dose: 81 mg Atorvastatin Calcium (Lipitor) 40 mg PO DIN [facility] Last Admin: 10/17/17 18:09 Dose: 40 mg Calcium Acetate (Phoslo) 1,334 mg PO WM [facility] Last Admin: 10/17/17 18:14 Dose: 1,334 mg Diphenhydramine HCl (Benadryl) 25 mg PO HS PRN PRN Reason: Insomnia Last Admin: 10/17/17 21:21 Dose: 25 mg Ergocalciferol (Drisdol 50,000 Intl Units Cap) 1 cap PO WED [facility] Fenofibrate (Tricor) 145 mg PO DAILY [facility] Last Admin: 07/31/18 09:30 Dose: 145 mg Heparin Sodium (Porcine) (Heparin) 5,000 units SC Q12 CARLOS PRN Reason: Protocol Last Admin: 10/17/17 21:25 Dose: 5,000 units Hydralazine HCl (Apresoline) 25 mg PO BID [facility] Last Admin: 10/17/17 18:08 Dose: Not Given Linezolid (Zyvox 600mg/300ml D5w) 600 mg in 300 mls @ 200 mls/hr IVPB Q12 CARLOS PRN Reason: Protocol Stop: 10/23/17 22:01 Last Admin: 10/17/17 22:48 Dose: 200 mls/hr Meropenem 250 mg/ Sodium (Chloride) 100 mls @ 100 mls/hr IVPB Q12H CARLOS PRN Reason: Protocol Stop: 10/23/17 06:01 Last Admin: 10/18/17 06:04 Dose: 100 mls/hr Insulin Human NPH (Humulin N) 20 units SC QPM [facility] Last Admin: 10/17/17 18:09 Dose: Not Given Insulin Human Regular (Humulin R High) 0 units SC ACHS [facility] PRN Reason: Protocol Last Admin: 10/17/17 16:54 Dose: Not Given Latanoprost (Xalatan Opht) 0 ml OU HS [facility] Last Admin: 10/16/17 21:55 Dose: 2.5 ml Levothyroxine Sodium (Synthroid) 25 mcg PO 0600 [facility] Last Admin: 10/18/17 06:05 Dose: 25 mcg Loratadine (Claritin) 10 mg PO HS [facility] Last Admin: 10/17/17 21:22 Dose: 10 mg Metoprolol Tartrate (Lopressor) 25 mg PO BID [facility] Last Admin: 10/17/17 18:09 Dose: Not Given Montelukast Sodium (Singulair) 10 mg PO HS [facility] Last Admin: 10/17/17 21:21 Dose: 10 mg Multivitamins (Thera Tab) 1 tab PO DAILY [facility] Last Admin: 10/17/17 09:30 Dose: 1 tab Salmeterol Xinafoate /Fluticaso [Advair Hfa 230-21] 1 puff IH BID [facility] Last Admin: 10/17/17 18:15 Dose: Not Given Holpf-6-Mmnq Ethyl Esters (Lovaza) 2 gm PO BID [facility] Last Admin: 10/17/17 18:09 Dose: 1 gm Oxycodone/Acetaminophen (Percocet 10/325 Mg Tab) 1 tab PO Q6H PRN PRN Reason: Pain, moderate (4-7) Last Admin: 10/17/17 12:48 Dose: 1 tab Pantoprazole Sodium (Protonix Ec Tab) 40 mg PO 0600 [facility] Last Admin: 10/18/17 06:05 Dose: 40 mg Pregabalin (Lyrica) 50 mg PO HS [facility] Last Admin: 10/17/17 21:23 Dose: 50 mg Sevelamer HCl (Renagel) 1,600 mg PO WM [facility] Last Admin: 10/17/17 18:14 Dose: 1,600 mg Sodium Chloride ([place] Nasal [place]) 0 ml NS Q2H PRN PRN Reason: Nasal congestion Tamsulosin HCl (Flomax) 0.[address] [facility] Last Admin: 10/17/17 21:21 Dose: 0.4 mg Ticagrelor (Brilinta) 90 mg PO BID [facility] Last Admin: 10/16/17 17:46 Dose: Not Given - Labs Labs: 10/18/17 06:00 10/18/17 06:00 PT 19.7 SECONDS 10/17/17 08:00 INR 1.69 10/17/17 08:00 APTT 33.4 Seconds 10/16/17 13:30 - Constitutional Appears: Well, Non-toxic, No Acute Distress - Extremities Exam Additional comments: RLE focused exam: Vasc: DP/PT pulses faintly palpable b/l. CFT to dorsal foot < 3 seconds. Moderate edema noted to TMA site Derm: distal TMA site flap is coapted and reapproximated with sutures and fitz. No unraveling of sutures or backing out of fitz noted. No dehiscence appreciated to the flap. There is an open large ulceration measuring approximately 10 cm x 7 cm x 2 cm on the plantar medial aspect of right foot, wound base mixture of fibrotic and necrotic tissue with serous drainage and mild malodor. No tracking, tunneling or undermining. No probe to bone. Neuro: Epicritic and protective sensation grossly absent Ortho: POP to plantar ulceration site. Ankle AROM and passive ROM WNL - Neurological Exam Neurological Exam: Alert, Awake, Oriented x3 - Psychiatric Exam Psychiatric exam: Normal Affect, Normal Mood Assessment and Plan - Assessment and Plan (Free Text) Assessment: 52M seen at bedside for right foot cellulitis with wet gangrene S/P TMA. Patient for BKA on 10/[address] Urrutia Plan: Patient seen and evaluated with Dr. Villanueva Afebrile, absent leukocytosis R foot wound dressed with ABD, DSD, [employer] Psychiatry consult placed Patient for BKA tomorrow with Dr. Urrutia Podiatry to sign off following amputation Please reconsult in future as necessary <Deborah Villanueva - Last Filed: 10/25/17 12:20> Objective - Vital Signs/Intake and Output Vital Signs (last 24 hours): Temp Pulse Resp BP Pulse Ox 97.3 F L 80 20 134/54 L 100 10/25/17 11:15 10/25/17 11:15 10/25/17 11:15 10/25/17 11:15 10/25/17 05:50 Intake and Output: 10/25/17 10/25/17 06:59 18:59 Intake Total 690 Balance 690 - Medications Medications: Current Medications Albuterol/Ipratropium (Duoneb 3 Mg/0.5 Mg (3 Ml) Ud) 3 ml IH [id number] PRN PRN Reason: Shortness of Breath Last Admin: 10/23/17 13:35 Dose: 3 ml Arformoterol Tartrate (Brovana) 15 mcg IH [id number] [facility] Last Admin: 10/25/17 07:54 Dose: 15 mcg Aspirin (Ecotrin) 81 mg PO DAILY [facility] Last Admin: 10/22/17 09:33 Dose: 81 mg Atorvastatin Calcium (Lipitor) 40 mg PO DIN [facility] Last Admin: 10/24/17 17:44 Dose: 40 mg Bacitracin (Bacitracin) 1 ea TOP BID [facility] Last Admin: 10/23/17 17:10 Dose: Not Given Budesonide (Pulmicort Respules) 0.5 mg IH [id number] [facility] Last Admin: 10/25/17 07:54 Dose: 0.5 mg Calcium Acetate (Phoslo) 1,334 mg PO WM [facility] Last Admin: 10/25/17 08:46 Dose: Not Given Diphenhydramine HCl (Benadryl) 25 mg PO HS PRN PRN Reason: Insomnia Last Admin: 08/07/18 22:03 Dose: 25 mg Ergocalciferol (Drisdol 50,000 Intl Units Cap) 1 cap PO WED [facility] Last Admin: 10/18/17 12:32 Dose: 1 cap Fenofibrate (Tricor) 145 mg PO DAILY [facility] Last Admin: 10/24/17 09:47 Dose: 145 mg Hydralazine HCl (Apresoline) 25 mg PO BID [facility] Last Admin: 10/21/17 17:04 Dose: Not Given Micafungin Sodium 100 mg/ (Sodium Chloride) 100 mls @ 100 mls/hr IV DAILY [facility] PRN Reason: Protocol Stop: 10/26/17 10:01 Last Admin: 10/24/17 09:41 Dose: 100 mls/hr Argatroban 250 mg/ Dextrose 252.5 mls @ 10.5 mls/hr IV .Q24H CARLOS; 2 MCG/KG/MIN PRN Reason: Protocol Last Admin: 10/23/17 17:08 Dose: 10.5 mls/hr Insulin Human NPH (Humulin N) 20 units SC QPM [facility] Last Admin: 10/23/17 19:09 Dose: Not Given Insulin Human Regular (Humulin R High) 0 units SC ACHS [facility] PRN Reason: Protocol Last Admin: 10/24/17 23:29 Dose: Not Given Latanoprost (Xalatan Opht) 0 ml OU HS [facility] Last Admin: 10/24/17 22:03 Dose: 2.5 ml Levothyroxine Sodium (Synthroid) 25 mcg PO 0600 [facility] Last Admin: 10/25/17 06:18 Dose: 25 mcg Loratadine (Claritin) 10 mg PO HS [facility] Last Admin: 10/24/17 22:03 Dose: 10 mg Metoprolol Tartrate (Lopressor) 25 mg PO BID [facility] Last Admin: 10/24/17 17:40 Dose: 25 mg Montelukast Sodium (Singulair) 10 mg PO HS [facility] Last Admin: 10/24/17 22:03 Dose: 10 mg Multivitamins (Thera Tab) 1 tab PO DAILY [facility] Last Admin: 10/24/17 09:29 Dose: 1 tab Salmeterol Xinafoate /Fluticaso [Advair Hfa 230-21] 1 puff IH BID [facility] Last Admin: 10/24/17 18:02 Dose: Not Given Pcgux-3-Wdtl Ethyl Esters (Lovaza) 2 gm PO BID [facility] Last Admin: 10/24/17 18:00 Dose: Not Given Ondansetron HCl (Zofran Inj) 4 mg IVP Q6H PRN PRN Reason: Nausea/Vomiting Last Admin: 10/23/17 06:48 Dose: 4 mg Oxycodone/Acetaminophen (Percocet 5/325 Mg Tab) 1 tab PO BID PRN PRN Reason: pain Stop: 10/27/17 19:10 Last Admin: 10/25/17 08:40 Dose: 1 tab Oxycodone/Acetaminophen (Percocet 5/325 Mg Tab) 2 tab PO Q4H PRN PRN Reason: foot pain Stop: 10/27/17 19:13 Pregabalin (Lyrica) 50 mg PO [facility] Last Admin: 10/24/17 22:03 Dose: 50 mg Sevelamer HCl (Renagel) 1,600 mg PO WM [facility] Last Admin: 10/25/17 08:46 Dose: Not Given Sodium Chloride ([place] Nasal [place]) 0 ml NS Q2H PRN PRN Reason: Nasal congestion Sucralfate (Carafate Oral Susp) 1 gm PO 0600,1600 [facility] Last Admin: 10/25/17 06:18 Dose: 1 gm Tamsulosin HCl (Flomax) 0.4 mg PO [facility] Last Admin: 10/24/17 22:03 Dose: 0.4 mg Ticagrelor (Brilinta) 90 mg PO BID [facility] Last Admin: 10/19/17 17:13 Dose: 90 mg - Labs Labs: 10/25/17 06:24 10/25/17 06:24 PT 17.9 SECONDS (9.4-12.5) H 10/20/17 07:00 INR 1.54 10/20/17 07:00 APTT 80.4 Seconds (25.1-36.5) H 10/23/17 19:54 Attending/Attestation - Attestation I have personally seen and examined this patient.: Yes I have fully participated in the care of the patient.: Yes I have reviewed all pertinent clinical information, including history, physical exam and plan: Yes
--- NOTE | 2017-10-18 09:36 | CARD ---
APPROVED REPORT Date of service: 10/17/2017 EKG Measurement Heart [id number] <Conclusion> Electronic dual chamber pacemaker
[2017-10-18] MEDS: SALMETEROL XINAFOATE IH SCH ×2 (10:00→19:52)
[2017-10-18] MEDS: FLUTICASO IH SCH ×2 (10:00→19:52)
--- NOTE | 2017-10-18 11:33 | CP.PCM.PN ---
<Asia Aguila - Last Filed: 10/18/17 11:29> Subjective - Date & Time of Evaluation Date of Evaluation: 10/18/17 Time of Evaluation: 11:29 - Subjective Subjective: PGY-[address] Potter Pt had 5 pasty bm overnight. Lately he had about 3 bm on laxative. Last time he took laxative was right before hospitalization. no f/c, CP, SOB, N/V/C. He is anuric Objective - Vital Signs/Intake and Output Vital Signs (last 24 hours): Temp Pulse Resp BP Pulse Ox 98.3 F 74 22 122/47 L 100 10/18/17 11:21 10/18/17 11:21 10/18/17 11:21 10/18/17 11:21 10/18/17 07:31 Intake and Output: 10/18/17 10/18/17 06:59 18:59 Intake Total 360 350 Balance 360 350 - Medications Medications: Current Medications Albuterol/Ipratropium (Duoneb 3 Mg/0.5 Mg (3 Ml) Ud) 3 ml IH [id number] PRN PRN Reason: Shortness of Breath Aspirin (Ecotrin) 81 mg PO DAILY [facility] Last Admin: 10/17/17 09:30 Dose: 81 mg Atorvastatin Calcium (Lipitor) 40 mg PO DIN [facility] Last Admin: 10/17/17 18:09 Dose: 40 mg Calcium Acetate (Phoslo) 1,334 mg PO WM [facility] Last Admin: 10/17/17 18:14 Dose: 1,334 mg Diphenhydramine HCl (Benadryl) 25 mg PO HS PRN PRN Reason: Insomnia Last Admin: 10/17/17 21:21 Dose: 25 mg Ergocalciferol (Drisdol 50,000 Intl Units Cap) 1 cap PO WED CARLOS Fenofibrate (Tricor) 145 mg PO DAILY [facility] Last Admin: 10/17/17 09:30 Dose: 145 mg Heparin Sodium (Porcine) (Heparin) 5,000 units SC Q12 CARLOS PRN Reason: Protocol Last Admin: 10/17/17 21:25 Dose: 5,000 units Hydralazine HCl (Apresoline) 25 mg PO BID [facility] Last Admin: 10/17/17 18:08 Dose: Not Given Linezolid (Zyvox 600mg/300ml D5w) 600 mg in 300 mls @ 200 mls/hr IVPB Q12 CARLOS PRN Reason: Protocol Stop: 10/23/17 22:01 Last Admin: 10/17/17 22:48 Dose: 200 mls/hr Meropenem 250 mg/ Sodium (Chloride) 100 mls @ 100 mls/hr IVPB Q12H CARLOS PRN Reason: Protocol Stop: 10/23/17 06:01 Last Admin: 10/18/17 06:04 Dose: 100 mls/hr Micafungin Sodium 100 mg/ (Sodium Chloride) 100 mls @ 100 mls/hr IV DAILY [facility] PRN Reason: Protocol Stop: 10/26/17 10:01 Insulin Human NPH (Humulin N) 20 units SC QPM [facility] Last Admin: 10/17/17 18:09 Dose: Not Given Insulin Human Regular (Humulin R High) 0 units SC ACHS CARLOS PRN Reason: Protocol Last Admin: 10/17/17 16:54 Dose: Not Given Latanoprost (Xalatan Opht) 0 ml OU HS [facility] Last Admin: 10/16/17 21:55 Dose: 2.5 ml Levothyroxine Sodium (Synthroid) 25 mcg PO 0600 [facility] Last Admin: 10/18/17 06:05 Dose: 25 mcg Loratadine (Claritin) 10 mg PO HS [facility] Last Admin: 10/17/17 21:22 Dose: 10 mg Metoprolol Tartrate (Lopressor) 25 mg PO BID [facility] Last Admin: 10/17/17 18:09 Dose: Not Given Montelukast Sodium (Singulair) 10 mg PO HS [facility] Last Admin: 10/17/17 21:21 Dose: 10 mg Multivitamins (Thera Tab) 1 tab PO DAILY [facility] Last Admin: 10/17/17 09:30 Dose: 1 tab Salmeterol Xinafoate /Fluticaso [Advair Hfa 230-21] 1 puff IH BID [facility] Last Admin: 10/17/17 18:15 Dose: Not Given Tpwzq-[id number] Ethyl Esters (Lovaza) 2 gm PO BID [facility] Last Admin: 10/17/17 18:09 Dose: 1 gm Oxycodone/Acetaminophen (Percocet 10/325 Mg Tab) 1 tab PO Q6H PRN PRN Reason: Pain, moderate (4-7) Last Admin: 10/17/17 12:48 Dose: 1 tab Pantoprazole Sodium (Protonix Ec Tab) 40 mg PO 0600 [facility] Last Admin: 10/18/17 06:05 Dose: 40 mg Pregabalin (Lyrica) 50 mg PO HS [facility] Last Admin: 10/17/17 21:23 Dose: 50 mg Sevelamer HCl (Renagel) 1,600 mg PO WM [facility] Last Admin: 10/17/17 18:14 Dose: 1,600 mg Sodium Chloride ([place] Nasal [place]) 0 ml NS Q2H PRN PRN Reason: Nasal congestion Tamsulosin HCl (Flomax) 0.4 mg PO HS [facility] Last Admin: 10/17/17 21:21 Dose: 0.4 mg Ticagrelor (Brilinta) 90 mg PO BID [facility] Last Admin: 10/16/17 17:46 Dose: Not Given - Labs Labs: 10/18/17 06:00 10/18/17 06:00 PT 19.7 SECONDS 10/17/17 08:00 INR 1.69 10/17/17 08:00 APTT 33.4 Seconds 10/16/17 13:30 - Constitutional Appears: No Acute Distress - Head Exam Head Exam: ATRAUMATIC, NORMAL INSPECTION, NORMOCEPHALIC - Eye Exam Eye Exam: EOMI, Normal appearance, PERRL. absent: Scleral icterus Pupil Exam: NORMAL ACCOMODATION - ENT Exam ENT Exam: Mucous Membranes Moist - Neck Exam Additional comments: supple - Respiratory Exam Respiratory Exam: Clear to Ausculation Bilateral, NORMAL BREATHING PATTERN. absent: Rales, Rhonchi, Wheezes - Cardiovascular Exam Cardiovascular Exam: REGULAR RHYTHM, +S1, +S2 - GI/Abdominal Exam GI & Abdominal Exam: Soft, Normal Bowel Sounds. absent: Tenderness - Extremities Exam Extremities Exam: absent: Calf Tenderness Additional comments: R stump dressing d/c/i (+) frill L arm R arm midline intact, no erythema - Neurological Exam Neurological Exam: Alert, Awake, Oriented x3 - Psychiatric Exam Psychiatric exam: Normal Affect, Normal Mood - Skin Skin Exam: Dry, Warm Assessment and Plan - Assessment and Plan (Free Text) Plan: Mr Berger, 52 M recently s/p transmetatarsal amputation of the right foot () due to wet gangrene to the right foot and bone exposure. He is on Dual antiplatelet for recent cardiac stent in May. 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 P: For fungemia, will remove modadded mycafungin, day __1___, will re-draw blood culture tomorrow. order echocardiogram to rule out vegetation, opthalmologist consult to r/o endopthalmitis. BKA may likely delayed to next Monday. Merem & Linezolid, day __3__ Percocet Q6 PRN; Lyrica HS Lipitor 40, fenofibrate, lovaza 2gm bid For BKA, resume brilinta per cardio, re-hold on Monday per cardio. Cardiology cleared. High uriel-operative cardiac risk. Pending ID clearence For anemia, f/u Iron study, TIBC, ferritin. s/p transfusion of 3u PRBC. Goal to reach Hb 10 for surgery. For CAD, Continue ASA, metoprolol 50, Will f/u wound healing progress to decide when to restart Brilinta For HTN, hydralazine 25 bid, For DM2, hold glipizide, reduce humulin N to 20u per last hospital insulin requirement, lispro-low sliding scale For chronic ESRD, HD MWF. Pt skipped Monday dialysis, will do it today with pRBC transfusion. Continue Phoslo, Vit D2, multivitamin, sevelamer For COPD/RENATA, HOB 45, Duoneb PRN, loratidine, CPAP PRN, montelikast, Advair. Cannot tolerate CPAP For Glucoma, bimatoprost For insomnia, benadryl HS prn For hypothyroidism, synthroid 25 Flomax for Bph Prophylaxis: Protonix, heparin SC Q12 Consult: Renan Figueroa, Dre, Rich, Jensen Escalera Access: L AV fistula. R midline s/r/d/w Dr. Potter <Gallo Potter S - Last Filed: 10/18/17 20:18> Objective - Vital Signs/Intake and Output Vital Signs (last 24 hours): Temp Pulse Resp BP Pulse Ox 98.1 F 81 18 151/40 H 100 10/18/17 16:35 10/18/17 16:35 10/18/17 16:35 10/18/17 16:35 10/18/17 16:35 Intake and Output: 10/18/17 10/19/17 18:59 06:59 Intake Total 590 Balance 590 - Medications Medications: Current Medications Albuterol/Ipratropium (Duoneb 3 Mg/0.5 Mg (3 Ml) Ud) 3 ml IH [id number] PRN PRN Reason: Shortness of Breath Aspirin (Ecotrin) 81 mg PO DAILY [facility] Last Admin: 10/18/17 12:33 Dose: 81 mg Atorvastatin Calcium (Lipitor) 40 mg PO DIN [facility] Last Admin: 10/18/17 17:40 Dose: 40 mg Calcium Acetate (Phoslo) 1,334 mg PO WM [facility] Last Admin: 10/18/17 17:39 Dose: 1,334 mg Diphenhydramine HCl (Benadryl) 25 mg PO HS PRN PRN Reason: Insomnia Last Admin: 10/17/17 21:21 Dose: 25 mg Ergocalciferol (Drisdol 50,000 Intl Units Cap) 1 cap PO WED [facility] Last Admin: 10/18/17 12:32 Dose: 1 cap Fenofibrate (Tricor) 145 mg PO DAILY [facility] Last Admin: 10/18/17 12:32 Dose: 145 mg Heparin Sodium (Porcine) (Heparin) 5,000 units SC Q12 CARLOS PRN Reason: Protocol Last Admin: 10/18/17 12:31 Dose: 5,000 units Hydralazine HCl (Apresoline) 25 mg PO BID [facility] Last Admin: 10/18/17 18:30 Dose: 25 mg Linezolid (Zyvox 600mg/300ml D5w) 600 mg in 300 mls @ 200 mls/hr IVPB Q12 CARLOS PRN Reason: Protocol Stop: 10/23/17 22:01 Last Admin: 10/18/17 12:30 Dose: 200 mls/hr Meropenem 250 mg/ Sodium (Chloride) 100 mls @ 100 mls/hr IVPB Q12H CARLOS PRN Reason: Protocol Stop: 10/23/17 06:01 Last Admin: 10/18/17 17:39 Dose: 100 mls/hr Micafungin Sodium 100 mg/ (Sodium Chloride) 100 mls @ 100 mls/hr IV DAILY [facility] PRN Reason: Protocol Stop: 10/26/17 10:01 Last Admin: 10/18/17 12:24 Dose: 100 mls/hr Insulin Human NPH (Humulin N) 20 units SC QPM [facility] Last Admin: 10/18/17 19:49 Dose: Not Given Insulin Human Regular (Humulin R High) 0 units SC ACHS [facility] PRN Reason: Protocol Last Admin: 10/18/17 19:49 Dose: Not Given Latanoprost (Xalatan Opht) 0 ml OU HS [facility] Last Admin: 10/16/17 21:55 Dose: 2.5 ml Levothyroxine Sodium (Synthroid) 25 mcg PO 0600 [facility] Last Admin: 10/18/17 06:05 Dose: 25 mcg Loratadine (Claritin) 10 mg PO HS [facility] Last Admin: 10/17/17 21:22 Dose: 10 mg Metoprolol Tartrate (Lopressor) 25 mg PO BID [facility] Last Admin: 10/18/17 18:00 Dose: 25 mg Montelukast Sodium (Singulair) 10 mg PO HS [facility] Last Admin: 10/17/17 21:21 Dose: 10 mg Multivitamins (Thera Tab) 1 tab PO DAILY [facility] Last Admin: 10/18/17 12:32 Dose: 1 tab Salmeterol Xinafoate /Fluticaso [Advair Hfa 230-21] 1 puff IH BID [facility] Last Admin: 10/18/17 19:52 Dose: Not Given [id number] Ethyl Esters (Lovaza) 2 gm PO BID [facility] Last Admin: 10/18/17 17:39 Dose: 2 gm Oxycodone/Acetaminophen (Percocet 10/325 Mg Tab) 1 tab PO Q6H PRN PRN Reason: Pain, moderate (4-7) Last Admin: 10/18/17 13:39 Dose: 1 tab Pantoprazole Sodium (Protonix Ec Tab) 40 mg PO 0600 [facility] Last Admin: 10/18/17 06:05 Dose: 40 mg Pregabalin (Lyrica) 50 mg PO HS [facility] Last Admin: 10/17/17 21:23 Dose: 50 mg Sevelamer HCl (Renagel) 1,600 mg PO WM [facility] Last Admin: 10/18/17 17:00 Dose: 1,600 mg Sodium Chloride ([place] Nasal [place]) 0 ml NS Q2H PRN PRN Reason: Nasal congestion Tamsulosin HCl (Flomax) 0.4 mg PO HS [facility] Last Admin: 10/17/17 21:21 Dose: 0.4 mg Ticagrelor (Brilinta) 90 mg PO BID [facility] Last Admin: 10/18/17 19:48 Dose: Not Given - Labs Labs: 10/18/17 06:00 10/18/17 06:00 PT 19.7 SECONDS (9.4-12.5) 10/17/17 08:00 INR 1.69 10/17/17 08:00 APTT 33.4 Seconds (25.1-36.5) 10/16/17 13:30 Assessment and Plan - Assessment and Plan (Free Text) Plan: Pt seen and examined. I have reviewed the note of the medical staff services manager and agree with it. I have discussed the assessment and plan with the resident. I have reviewed the patient's labs and medications. He has fungemia. ID is aware of the pt. He will need echo and Ophtho evaluation. He was complaining of diarrhea which is probably due to Linezolid. Pain controlled with Percocet. Surgery will be cancelled and rescheduled for next week due to fungemia. Spoke to Dr Urrutia. Pt to get HD and 1 unit of PRBC
[2017-10-18] MEDS: Micafungin 100 MG in Sodium Chloride 0.9% 100 ML IV SCH (12:24)
[2017-10-18] MEDS: Linezolid 600 mg in D5W 300 ml 600 MG/300 ML BAG IVPB SCH (12:30)
[2017-10-18] MEDS: Multivitamin Therapeutic Tab PO SCH (12:32)
[2017-10-18] MEDS: Ergocalciferol 50,000 Intl Units Cap PO SCH (12:32)
[2017-10-18] MEDS: Insulin Reg-HIGH-Coverage SC SCH ×3 (12:33→22:00)
[2017-10-18] MEDS: Omega-3-Acid Ethyl Esters 1 GM Cap PO SCH ×2 (12:34→17:39)
--- NOTE | 2017-10-18 12:35 | PN ---
Copied To: Jaspreet Forbes MD Attending MD: Jaspreet Forbes MD DATE: 10/18/2017 SUBJECTIVE: The patient is in bed, in no acute distress, nontoxic. PHYSICAL EXAMINATION: VITAL SIGNS: Temperature is 98, blood pressure is 100/40, respiratory rate of 20, heart rate of 62. HEENT: Examination of HEENT is unremarkable. NECK: Supple. LUNGS: Have decreased breath sounds. HEART: Normal S1 and S2. ABDOMEN: Soft, nontender. LABORATORY DATA: Laboratory examination reveals a white count of 6.9, hemoglobin of 8, platelets are noted. Chemistries reveals the patient's LFTs are normal. Blood cultures reveals yeast in the blood, it was reported in one bottle. Review of orders reveals the patient is on meropenem and Linezolid. ASSESSMENT AND PLAN: A 52-year-old male, who was seen earlier today in [facility], bed 2, admitted with right transmetatarsal amputation, stump gangrene; end-stage renal disease, on hemodialysis; diabetes; obesity; coronary artery disease; retinopathy; history of pancreatitis. On admission, the patient had blood cultures which were done had yeast with fungemia and recommend removal of the peripherally inserted central catheter line. Recommend an echocardiogram. Recommend starting Mycamine. Recommend an ophthalmology exam. Recommend canceling surgery tomorrow since general anesthesia will be used in a patient who is fungemic and he will be cleared of fungemia and make the patient more medically stable. Jaspreet Forbes MD
--- NOTE | 2017-10-18 12:43 | CP.PCM.PN ---
Subjective - Date & Time of Evaluation Date of Evaluation: 10/18/17 Time of Evaluation: 09:20 - Subjective Subjective: Surgery Progress Note for Dr. Urrutia Pt seen and examined at bedside. No acute events reported overnight. Pt denies pain in foot, fever, chills, worsening shortness of breath, n/v/d/c, or other symptoms. Objective - Vital Signs/Intake and Output Vital Signs (last 24 hours): Temp Pulse Resp BP Pulse Ox 98.3 F 74 22 122/47 L 100 10/18/17 11:21 10/18/17 11:21 10/18/17 11:21 10/18/17 11:21 10/18/17 07:31 Intake and Output: 10/18/17 10/18/17 06:59 18:59 Intake Total 360 350 Balance 360 350 - Medications Medications: Current Medications Albuterol/Ipratropium (Duoneb 3 Mg/0.5 Mg (3 Ml) Ud) 3 ml IH [id number] PRN PRN Reason: Shortness of Breath Aspirin (Ecotrin) 81 mg PO DAILY [facility] Last Admin: 10/17/17 09:30 Dose: 81 mg Atorvastatin Calcium (Lipitor) 40 mg PO DIN [facility] Last Admin: 10/17/17 18:09 Dose: 40 mg Calcium Acetate (Phoslo) 1,334 mg PO WM [facility] Last Admin: 10/17/17 18:14 Dose: 1,334 mg Diphenhydramine HCl (Benadryl) 25 mg PO HS PRN PRN Reason: Insomnia Last Admin: 10/17/17 21:21 Dose: 25 mg Ergocalciferol (Drisdol 50,000 Intl Units Cap) 1 cap PO WED CAR[facility] Fenofibrate (Tricor) 145 mg PO DAILY [facility] Last Admin: 10/17/17 09:30 Dose: 145 mg Heparin Sodium (Porcine) (Heparin) 5,000 units SC Q12 CARLOS PRN Reason: Protocol Last Admin: 10/17/17 21:25 Dose: 5,000 units Hydralazine HCl (Apresoline) 25 mg PO BID [facility] Last Admin: 10/17/17 18:08 Dose: Not Given Linezolid (Zyvox 600mg/300ml D5w) 600 mg in 300 mls @ 200 mls/hr IVPB Q12 CARLOS PRN Reason: Protocol Stop: 10/23/17 22:01 Last Admin: 10/17/17 22:48 Dose: 200 mls/hr Meropenem 250 mg/ Sodium (Chloride) 100 mls @ 100 mls/hr IVPB Q12H CARLOS PRN Reason: Protocol Stop: 10/23/17 06:01 Last Admin: 10/18/17 06:04 Dose: 100 mls/hr Micafungin Sodium 100 mg/ (Sodium Chloride) 100 mls @ 100 mls/hr IV DAILY [facility] PRN Reason: Protocol Stop: 10/26/17 10:01 Insulin Human NPH (Humulin N) 20 units SC QPM [facility] Last Admin: 10/17/17 18:09 Dose: Not Given Insulin Human Regular (Humulin R High) 0 units SC ACHS [facility]LOS PRN Reason: Protocol Last Admin: 10/17/17 16:54 Dose: Not Given Latanoprost (Xalatan Opht) 0 ml OU HS [facility] Last Admin: 10/16/17 21:55 Dose: 2.5 ml Levothyroxine Sodium (Synthroid) 25 mcg PO 0600 [facility] Last Admin: 10/18/17 06:05 Dose: 25 mcg Loratadine (Claritin) 10 mg PO HS [facility] Last Admin: 10/17/17 21:22 Dose: 10 mg Metoprolol Tartrate (Lopressor) 25 mg PO BID [facility] Last Admin: 10/17/17 18:09 Dose: Not Given Montelukast Sodium (Singulair) 10 mg PO HS [facility] Last Admin: 10/17/17 21:21 Dose: 10 mg Multivitamins (Thera Tab) 1 tab PO DAILY [facility] Last Admin: 10/17/17 09:30 Dose: 1 tab Salmeterol Xinafoate /Fluticaso [Advair Hfa 230-21] 1 puff IH BID [facility] Last Admin: 10/17/17 18:15 Dose: Not Given Fcquk-7-Nybn Ethyl Esters (Lovaza) 2 gm PO BID [facility] Last Admin: 10/17/17 18:09 Dose: 1 gm Oxycodone/Acetaminophen (Percocet 10/325 Mg Tab) 1 tab PO Q6H PRN PRN Reason: Pain, moderate (4-7) Last Admin: 10/17/17 12:48 Dose: 1 tab Pantoprazole Sodium (Protonix Ec Tab) 40 mg PO 0600 [facility] Last Admin: 10/18/17 06:05 Dose: 40 mg Pregabalin (Lyrica) 50 mg PO HS [facility] Last Admin: 10/17/17 21:23 Dose: 50 mg Sevelamer HCl (Renagel) 1,600 mg PO WM [facility] Last Admin: 10/17/17 18:14 Dose: 1,600 mg Sodium Chloride ([place] Nasal [place]) 0 ml NS Q2H PRN PRN Reason: Nasal congestion Tamsulosin HCl (Flomax) 0.4 mg PO [facility] Last Admin: 10/17/17 21:21 Dose: 0.4 mg Ticagrelor (Brilinta) 90 mg PO BID [facility] - Labs Labs: 10/18/17 06:00 10/18/17 06:00 PT 19.7 SECONDS 10/17/17 08:00 INR 1.69 10/17/17 08:00 APTT 33.4 Seconds 10/16/17 13:30 - Constitutional Appears: Non-toxic, No Acute Distress - Head Exam Head Exam: ATRAUMATIC, NORMAL INSPECTION - Eye Exam Eye Exam: EOMI, Normal appearance, PERRL - ENT Exam ENT Exam: Mucous Membranes Moist - Respiratory Exam Respiratory Exam: Clear to Ausculation Bilateral, NORMAL BREATHING PATTERN - Cardiovascular Exam Cardiovascular Exam: REGULAR RHYTHM, +S1, +S2 - GI/Abdominal Exam GI & Abdominal Exam: Soft, Normal Bowel Sounds - Extremities Exam Extremities Exam: Normal Capillary Refill Additional comments: B/L lower leg chronic skin changes. Foot with incision well approximated by fitz but black, necrotic tissue surrounding it. Wound on the sole of the foot with purulent fluid drainage. No surrounding erythema or crepitus. 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 Plan: -Pt to go to OR next Monday -Pt has fungemia (10/16), growing yeast -2D echo ordered to r/o endocarditis -Micafungin started as per ID -C/w IV anbx as per ID -Cont to trend pt's H/H, today 8.7/27.4, s/p transfusion 3 units PRBCs -Brilinta restarted as per cardio, will need to hold prior to OR procedure next week -PRN pain medication -AE hose for L leg -Further recommendations as per Dr. Renan Rodriguez, DO PGY-1
[2017-10-18 13:28] LABS: PARTIAL THROMBOPLASTIN TIME 33.4 Seconds (25.1-36.5); PROTHROMBIN TIME 20.1 SECONDS (9.4-12.5)
[2017-10-18] MEDS: Oxycodone/Acetaminophen 10/325 mg Tab PO PRN ×2 (13:39→23:35)
[2017-10-18 13:53] LABS: PROTHROMBIN TIME 19.7 SECONDS (9.4-12.5)
--- NOTE | 2017-10-18 14:58 | PN ---
Copied To: Jarred Erickson MD Attending MD: Jarred Erickson MD DATE: 10/18/2017 REASON FOR CONSULTATION AND FOLLOWUP: Preop evaluation, risk stratification for possible right BKA, nonhealing foot ulcer, status post TMA, cardiac evaluation. SUBJECTIVE: The patient denies any chest pain, shortness of breath or any palpitations. Status post packed RBC transfusion. OBJECTIVE: GENERAL: Not in apparent distress, lying flat on the bed. VITAL SIGNS: Temperature afebrile, heart rate 62, blood pressure 100/40. HEENT: PERRLA. Extraocular muscles are intact. NECK: Supple. No carotid bruits. No thyromegaly. CHEST: Clear to auscultation. HEART: S1 and S2 regular. ABDOMEN: Soft. EXTREMITIES: Clubbing and cyanosis negative. LABORATORY DATA: Blood workup as follows: WBC 6.9, hemoglobin 8.7, hematocrit 27.4, platelet count 171. Chemistries shows sodium 130, potassium 4, chloride 97, carbon dioxide 28, anion gap of 11, BUN 30, creatinine 4.9. IMPRESSION: This is a 52-year-old male with past medical history significant for coronary artery disease, status post multiple stents, last stent in 05/2017; history of junctional bradycardia; syncope; status post permanent pacemaker, dual-chamber in 06/2017; history of peripheral arterial disease, status post right forefoot amputation, admitted with nonhealing ulcer, possibly requiring right below-knee amputation, preoperative evaluation, risk stratification; cardiac consult was called. History of diabetes, end-stage renal disease and full-blown complications of diabetes including diabetic retinopathy, neuropathy, nephropathy. The patient was on Brilinta because resistant to Plavix, also on aspirin. Brilinta is on hold for more than two days. Yesterday, hemoglobin was low, suggested to give 2 units of packed RBC during dialysis. Today's hemoglobin after transfusion was 8.7. RECOMMENDATIONS: Patient is cleared to go from Cardiology point of view with [id number] risk because of underlying comorbidity. No absolute contraindication for surgery because no evidence of ischemia, no evidence of arrhythmia, no evidence of congestive heart failure. Suggested to continue preoperative beta-valerie. Continue aspirin. Discussed with Dr. Julius Urrutia. He is going to operate. Patient is on aspirin. Once the amputation was done and her leg starts healing and no risk of bleeding, we will restart Brilinta. We will follow with you. I discussed with the patient, discussed with the patient's mom. Thank you Dr. Potter for providing us the opportunity in taking care of Jason Berger. Jarred Erickson MD
[2017-10-18] MEDS: Insulin Human NPH 1 UNITS/0.01 ML SC SCH (19:49)
--- NOTE | 2017-10-18 21:29 | PN ---
Copied To: Jarred Escalera MD Attending MD: Jarred Escalera MD PULMONARY PROGRESS NOTE DATE: 10/18/2017 REFERRING PHYSICIAN: Gallo Potter MD. SUBJECTIVE: He is lying in the bed, head at 45 degrees. Night was unremarkable. Has episode of chest discomfort. Presently no more pain. Could not use CPAP. No cough. No sputum production. No nausea. No vomiting. No diarrhea. Has a right foot pain. OBJECTIVE: GENERAL: In no acute distress. VITAL SIGNS: Temperature is 98, heart rate is 74, respiratory rate is 20, blood pressure 151/40, pulse ox 100% on nasal cannula. HEENT: Moist mucous membrane. Crowded airway. Mallampati score is 4. NECK: Supple. No JVD. LUNGS: A fair airflow with rhonchi. HEART: S1 and S2. ABDOMEN: Soft, nontender. No organomegaly. EXTREMITIES: Right foot is with dressing. NEUROLOGICAL: Awake, alert, and follows simple commands. MEDICATIONS: He is on hydralazine 25 mg twice a day, Benadryl 25 mg at bedtime p.r.n., Brilinta 90 mg which is twice a day, Claritin 10 mg daily, vitamin D weekly being used, DuoNeb every 6 hours p.r.n., Ecotrin 81 mg daily, Flomax 0.4 mg daily, heparin 5000 units subcu every 12 hours, insulin coverage, Lipitor 40 mg daily, metoprolol tartrate 25 mg twice a day, Lovaza 2 g twice a day, Lyrica 50 mg at bedtime, meropenem 250 mg every 12 hours, micafungin 100 mg daily, nasal saline every 2 hours p.r.n., Percocet 10/325 one tab every 6 hours p.r.n, PhosLo is with the meals, Protonix 40 mg daily, Renagel with meals, Advair HFA one puff twice a day, Singulair 10 mg daily, Synthroid 25 mcg daily, multivitamins daily, Tricor 145 mg daily, and Zyvox 600 mg daily. LABORATORY DATA: Shows hemoglobin 8.7, hematocrit 27.4, WBC 6.9 and platelet count is 71. Sodium 132, potassium 4.4, chloride 97, bicarbonate 28, BUN 30, creatinine 4.9, glucose 125, calcium is 7.8, AST 38, ALT 24, alk phos is 52, albumin is 2.5. Microbiology; one out of two cultures has a yeast, stool for C. diff is negative. Had echocardiogram done, report is pending. IMPRESSION AND PLAN: Severe peripheral vascular disease with nonhealing ulcer requiring partial amputation of the foot, has a nonhealing incision site, now admitted for possible below-knee amputation, chronic obstructive lung disease, sleep apnea syndrome, cardiomyopathy, coronary artery disease, history of pulmonary hypertension, diabetes, hypertension, peripheral neuropathy, legally blind. Pulmonary point of view, he is doing okay. Continue bronchodilator. Keep head at 45 degrees. Encourage CPAP use. Antibiotics as per Infectious Diseases, has fungemia now. precaution. Follow up labs in the morning. Thank you and we will follow with you. Jarred Escalera MD
[2017-10-18] MEDS: Latanoprost 2.5 ml Opht Soln OU SCH ×2 (21:42→21:43)
[2017-10-19] MEDS: Linezolid 600 mg in D5W 300 ml 600 MG/300 ML BAG IVPB SCH ×3 (02:41→22:41)
--- NOTE | 2017-10-19 03:44 | CON ---
Copied To: Max Styles MD Attending MD: Max Styles MD DATE: 10/18/2017 Consultation was to rule out fungal endophthalmitis. HISTORY OF PRESENT ILLNESS: The patient is a 52-year-old male with severe diabetic disease. He presented to [facility] for a gangrene of the right foot. He is scheduled for amputation for next week. PHYSICAL EXAMINATION: EYES: He reports that he does have a floaters but no significant change in his vision. He is the patient who is known to the practice. On today's exam his near vision in the right eye is 21/100, left eye is light perception, which is pretty consistent with his in office visits. On exam, he is noted to have a clear cornea, clear artificial lens in both eyes. His posterior exam appears clear. He does not have any signs of any endophthalmitis. He does have significant retinal lasers for his previous severe diabetic retinopathy in both eyes. If there are any questions, he then contact our office, otherwise have patient please follow up with us once he is discharged. Max Styles MD
[2017-10-19] MEDS: Pantoprazole 40 mg EC Tab PO SCH (05:14)
[2017-10-19] MEDS: Levothyroxine 25 MCG TAB PO SCH (05:14)
[2017-10-19 07:53] LABS: BASO # 0.02 K/mm3 (0.0-2.0); BASO % 0.3 % (0.0-3.0); EOS # 0.2 (0.0-0.7); EOS % 3.2 % (1.5-5.0); GRAN # 4.72 (1.4-6.5); GRAN % 66.7 % (50.0-68.0); HEMOGLOBIN 9.8 g/dL (14.0-18.0); LYMPH # 1.4 (1.2-3.4); LYMPH % 20.2 % (22.0-35.0); MEAN CELL VOLUME 91.8 fl (80.0-105.0); MEAN CORPUSCULAR HEMOGLOBIN 29.6 pg (25.0-35.0); MEAN CORPUSCULAR HGB CONC 32.2 g/dl (31.0-37.0); MEAN PLATELET VOLUME 10.1 fl (7.0-11.0); MONO # 0.7 (0.1-0.6); MONO % 9.6 % (1.0-6.0); RBC 3.31 10^6/uL (3.5-6.1); RED CELL DISTRIBUTION WIDTH 17.3 % (11.5-14.5); WHITE BLOOD COUNT 7.1 10^3/ul (4.5-11.0)
[2017-10-19] MEDS: Insulin Reg-HIGH-Coverage SC SCH ×5 (08:01→22:40)
[2017-10-19 08:05] LABS: ALB/GLOB RATIO 0.6 (1.1-1.8); ALBUMIN 2.4 g/dL (3.0-4.8); CALCIUM 8.1 mg/dL (8.4-10.5)
--- NOTE | 2017-10-19 08:22 | CP.PCM.PN ---
Subjective - Date & Time of Evaluation Date of Evaluation: 10/19/17 Time of Evaluation: 07:10 - Subjective Subjective: Surgery Progress Note for Dr. Urrutia Pt seen and examined at bedside. No acute events reported overnight. Pt denies pain in foot, fever, chills, worsening shortness of breath, n/v/d/c, or other symptoms. Resting comfortably in bed. Objective - Vital Signs/Intake and Output Vital Signs (last 24 hours): Temp Pulse Resp BP Pulse Ox 98.1 F 69 18 104/46 L 100 10/19/17 06:00 10/19/17 06:00 10/19/17 06:00 10/19/17 06:00 10/19/17 06:00 Intake and Output: 10/19/17 10/19/17 06:59 18:59 Intake Total 240 Balance 240 - Medications Medications: Current Medications Albuterol/Ipratropium (Duoneb 3 Mg/0.5 Mg (3 Ml) Ud) 3 ml IH [id number] PRN PRN Reason: Shortness of Breath Aspirin (Ecotrin) 81 mg PO DAILY [facility] Last Admin: 10/18/17 12:33 Dose: 81 mg Atorvastatin Calcium (Lipitor) 40 mg PO DIN [facility] Last Admin: 10/18/17 17:40 Dose: 40 mg Calcium Acetate (Phoslo) 1,334 mg PO WM [facility] Last Admin: 10/18/17 17:39 Dose: 1,334 mg Diphenhydramine HCl (Benadryl) 25 mg PO HS PRN PRN Reason: Insomnia Last Admin: 10/18/17 21:39 Dose: 25 mg Ergocalciferol (Drisdol 50,000 Intl Units Cap) 1 cap PO WED [facility] Last Admin: 10/18/17 12:32 Dose: 1 cap Fenofibrate (Tricor) 145 mg PO DAILY [facility] Last Admin: 10/18/17 12:32 Dose: 145 mg Heparin Sodium (Porcine) (Heparin) 5,000 units SC Q12 [facility] PRN Reason: Protocol Last Admin: 10/18/17 21:40 Dose: 5,000 units Hydralazine HCl (Apresoline) 25 mg PO BID [facility] Last Admin: 10/18/17 18:30 Dose: 25 mg Linezolid (Zyvox 600mg/300ml D5w) 600 mg in 300 mls @ 200 mls/hr IVPB Q12 [facility] PRN Reason: Protocol Stop: 10/23/17 22:01 Last Admin: 10/19/17 02:41 Dose: 200 mls/hr Meropenem 250 mg/ Sodium (Chloride) 100 mls @ 100 mls/hr IVPB Q12H [facility] PRN Reason: Protocol Stop: 10/23/17 06:01 Last Admin: 10/19/17 05:08 Dose: 100 mls/hr Micafungin Sodium 100 mg/ (Sodium Chloride) 100 mls @ 100 mls/hr IV DAILY [facility] PRN Reason: Protocol Stop: 10/26/17 10:01 Last Admin: 10/18/17 12:24 Dose: 100 mls/hr Insulin Human NPH (Humulin N) 20 units SC QPM [facility] Last Admin: 10/18/17 19:49 Dose: Not Given Insulin Human Regular (Humulin R High) 0 units SC ACHS [facility] PRN Reason: Protocol Last Admin: 10/19/17 08:01 Dose: Not Given Latanoprost (Xalatan Opht) 0 ml OU HS [facility] Last Admin: 10/18/17 21:43 Dose: 2.5 ml Levothyroxine Sodium (Synthroid) 25 mcg PO 0600 [facility] Last Admin: 10/19/17 05:14 Dose: 25 mcg Loratadine (Claritin) 10 mg PO HS [facility] Last Admin: 10/18/17 21:39 Dose: 10 mg Metoprolol Tartrate (Lopressor) 25 mg PO BID [facility] Last Admin: 10/18/17 18:00 Dose: 25 mg Montelukast Sodium (Singulair) 10 mg PO HS [facility] Last Admin: 10/18/17 21:41 Dose: 10 mg Multivitamins (Thera Tab) 1 tab PO DAILY [facility] Last Admin: 10/18/17 12:32 Dose: 1 tab Salmeterol Xinafoate /Fluticaso [Advair Hfa 230-21] 1 puff IH BID [facility] Last Admin: 10/18/17 19:52 Dose: Not Given Oolyp-0-Yxyy Ethyl Esters (Lovaza) 2 gm PO BID [facility] Last Admin: 10/18/17 17:39 Dose: 2 gm Oxycodone/Acetaminophen (Percocet 10/325 Mg Tab) 1 tab PO Q6H PRN PRN Reason: Pain, moderate (4-7) Last Admin: 10/18/17 23:35 Dose: 1 tab Pantoprazole Sodium (Protonix Ec Tab) 40 mg PO 0600 [facility] Last Admin: 10/19/17 05:14 Dose: 40 mg Pregabalin (Lyrica) 50 mg PO HS [facility] Last Admin: 10/18/17 21:41 Dose: 50 mg Sevelamer HCl (Renagel) 1,600 mg PO WM [facility] Last Admin: 10/18/17 17:00 Dose: 1,600 mg Sodium Chloride ([place] Nasal [place]) 0 ml NS Q2H PRN PRN Reason: Nasal congestion Tamsulosin HCl (Flomax) 0.4 mg PO [facility] Last Admin: 10/18/17 21:40 Dose: 0.4 mg Ticagrelor (Brilinta) 90 mg PO BID [facility] Last Admin: 10/18/17 19:48 Dose: Not Given - Labs Labs: 10/19/17 05:00 10/19/17 05:00 PT 19.7 SECONDS (9.4-12.5) 10/17/17 08:00 INR 1.69 10/17/17 08:00 APTT 33.4 Seconds (25.1-36.5) 10/16/17 13:30 - Constitutional Appears: Non-toxic, No Acute Distress - Head Exam Head Exam: ATRAUMATIC, NORMAL INSPECTION - Eye Exam Eye Exam: EOMI, Normal appearance, PERRL - ENT Exam ENT Exam: Mucous Membranes Moist - Respiratory Exam Respiratory Exam: Clear to Ausculation Bilateral, NORMAL BREATHING PATTERN - Cardiovascular Exam Cardiovascular Exam: REGULAR RHYTHM, +S1, +S2 - GI/Abdominal Exam GI & Abdominal Exam: Soft, Normal Bowel Sounds - Extremities Exam Additional comments: B/L lower leg chronic skin changes. Foot with incision well approximated by fitz but black, necrotic tissue surrounding it. Wound on the sole of the foot with purulent fluid drainage. No surrounding erythema or crepitus. 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 Plan: -Pt to go to OR next Monday for BKA -Pt has fungemia (10/16), growing yeast -2D echo ordered to r/o endocarditis, f/u results -Micafungin started as per ID -C/w IV anbx as per ID -Cont to trend pt's H/H, today 9.8/30.4, s/p transfusion 3 units PRBCs -Brilinta restarted as per cardio, will need to hold prior to OR procedure next week -PRN pain medication -AE hose for L leg -Further recommendations as per Dr. Renan Rodriguez, DO PGY-1
--- NOTE | 2017-10-19 09:14 | CP.PCM.PN ---
<Asia Aguila - Last Filed: 10/19/17 09:10> Subjective - Date & Time of Evaluation Date of Evaluation: 10/19/17 Time of Evaluation: 07:00 - Subjective Subjective: PGY-[address] Potter No acute complaint. Objective - Vital Signs/Intake and Output Vital Signs (last 24 hours): Temp Pulse Resp BP Pulse Ox 98.1 F 69 18 104/46 L 100 10/19/17 06:00 10/19/17 06:00 10/19/17 06:00 10/19/17 06:00 10/19/17 06:00 Intake and Output: 10/19/17 10/19/17 06:59 18:59 Intake Total 240 Balance 240 - Medications Medications: Current Medications Albuterol/Ipratropium (Duoneb 3 Mg/0.5 Mg (3 Ml) Ud) 3 ml IH [id number] PRN PRN Reason: Shortness of Breath Aspirin (Ecotrin) 81 mg PO DAILY [facility] Last Admin: 10/18/17 12:33 Dose: 81 mg Atorvastatin Calcium (Lipitor) 40 mg PO DIN [facility] Last Admin: 10/18/17 17:40 Dose: 40 mg Calcium Acetate (Phoslo) 1,334 mg PO WM [facility] Last Admin: 10/19/17 08:17 Dose: 1,334 mg Diphenhydramine HCl (Benadryl) 25 mg PO HS PRN PRN Reason: Insomnia Last Admin: 10/18/17 21:39 Dose: 25 mg Ergocalciferol (Drisdol 50,000 Intl Units Cap) 1 cap PO WED [facility] Last Admin: 10/18/17 12:32 Dose: 1 cap Fenofibrate (Tricor) 145 mg PO DAILY [facility] Last Admin: 10/18/17 12:32 Dose: 145 mg Heparin Sodium (Porcine) (Heparin) 5,000 units SC Q12 [facility] PRN Reason: Protocol Last Admin: 10/18/17 21:40 Dose: 5,000 units Hydralazine HCl (Apresoline) 25 mg PO BID [facility] Last Admin: 10/18/17 18:30 Dose: 25 mg Linezolid (Zyvox 600mg/300ml D5w) 600 mg in 300 mls @ 200 mls/hr IVPB Q12 [facility] PRN Reason: Protocol Stop: 10/23/17 22:01 Last Admin: 10/19/17 02:41 Dose: 200 mls/hr Meropenem 250 mg/ Sodium (Chloride) 100 mls @ 100 mls/hr IVPB Q12H [facility] PRN Reason: Protocol Stop: 10/23/17 06:01 Last Admin: 10/19/17 05:08 Dose: 100 mls/hr Micafungin Sodium 100 mg/ (Sodium Chloride) 100 mls @ 100 mls/hr IV DAILY [facility] PRN Reason: Protocol Stop: 10/26/17 10:01 Last Admin: 10/18/17 12:24 Dose: 100 mls/hr Insulin Human NPH (Humulin N) 20 units SC QPM [facility] Last Admin: 10/18/17 19:49 Dose: Not Given Insulin Human Regular (Humulin R High) 0 units SC ACHS [facility] PRN Reason: Protocol Last Admin: 10/19/17 08:01 Dose: Not Given Latanoprost (Xalatan Opht) 0 ml OU HS [facility] Last Admin: 10/18/17 21:43 Dose: 2.5 ml Levothyroxine Sodium (Synthroid) 25 mcg PO 0600 [facility] Last Admin: 10/19/17 05:14 Dose: 25 mcg Loratadine (Claritin) 10 mg PO HS [facility] Last Admin: 10/18/17 21:39 Dose: 10 mg Metoprolol Tartrate (Lopressor) 25 mg PO BID [facility] Last Admin: 10/18/17 18:00 Dose: 25 mg Montelukast Sodium (Singulair) 10 mg PO HS [facility] Last Admin: 10/18/17 21:41 Dose: 10 mg Multivitamins (Thera Tab) 1 tab PO DAILY [facility] Last Admin: 10/18/17 12:32 Dose: 1 tab Salmeterol Xinafoate /Fluticaso [Advair Hfa 230-21] 1 puff IH BID [facility] Last Admin: 10/18/17 19:52 Dose: Not Given [id number]-7-Llmr Ethyl Esters (Lovaza) 2 gm PO BID [facility] Last Admin: 10/18/17 17:39 Dose: 2 gm Oxycodone/Acetaminophen (Percocet 10/325 Mg Tab) 1 tab PO Q6H PRN PRN Reason: Pain, moderate (4-7) Last Admin: 10/18/17 23:35 Dose: 1 tab Pantoprazole Sodium (Protonix Ec Tab) 40 mg PO 0600 [facility] Last Admin: 10/19/17 05:14 Dose: 40 mg Pregabalin (Lyrica) 50 mg PO [facility] Last Admin: 10/18/17 21:41 Dose: 50 mg Sevelamer HCl (Renagel) 1,600 mg PO WM [facility] Last Admin: 10/19/17 08:17 Dose: 1,600 mg Sodium Chloride ([place] Nasal [place]) 0 ml NS Q2H PRN PRN Reason: Nasal congestion Tamsulosin HCl (Flomax) 0.4 mg PO [facility] Last Admin: 10/18/17 21:40 Dose: 0.4 mg Ticagrelor (Brilinta) 90 mg PO BID [facility] Last Admin: 10/18/17 19:48 Dose: Not Given - Labs Labs: 10/19/17 05:00 10/19/17 05:00 PT 19.7 SECONDS (9.4-12.5) 10/17/17 08:00 INR 1.69 10/17/17 08:00 APTT 33.4 Seconds (25.1-36.5) 10/16/17 13:30 - Constitutional Appears: No Acute Distress - Head Exam Head Exam: ATRAUMATIC, NORMAL INSPECTION, NORMOCEPHALIC - Eye Exam Eye Exam: EOMI, Normal appearance, PERRL. absent: Scleral icterus Pupil Exam: NORMAL ACCOMODATION - ENT Exam ENT Exam: Mucous Membranes Moist - Neck Exam Additional comments: supple - Respiratory Exam Respiratory Exam: Clear to Ausculation Bilateral. absent: Rales, Rhonchi, Wheezes - Cardiovascular Exam Cardiovascular Exam: REGULAR RHYTHM, +S1, +S2 - GI/Abdominal Exam GI & Abdominal Exam: Soft. absent: Guarding, Rigid, Tenderness - Extremities Exam Extremities Exam: Normal Capillary Refill. absent: Calf Tenderness, Pedal Edema Additional comments: RLE dressing d/c/i - Neurological Exam Neurological Exam: Alert, Awake, Oriented x3 - Psychiatric Exam Psychiatric exam: Normal Affect, Normal Mood - Skin Skin Exam: Dry, Warm Assessment and Plan - Assessment and Plan (Free Text) Plan: Mr Berger, 52 M recently s/p transmetatarsal amputation of the right foot () due to wet gangrene to the right foot and bone exposure. He is on Dual antiplatelet for recent cardiac stent in May. 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 P: For fungemia, mycafungin, day __2___, Merem & Linezolid, day __4__will re-draw blood culture tomorrow. Echocardiogram to rule out vegetation, pending official read Opthalmologist has r/o endopthalmitis. BKA may likely delayed to next Monday. Percocet Q6 PRN; Lyrica HS Lipitor 40, fenofibrate, lovaza 2gm bid For BKA, resume brilinta per cardio, re-hold on Monday per cardio. Cardiology cleared. High uriel-operative cardiac risk. Pending ID clearence For anemia, f/u Iron study, TIBC, ferritin. s/p transfusion of 3u PRBC. Goal to reach Hb 10 for surgery. For CAD, Continue ASA, metoprolol 50. Restart Brilina, will be held on Monday. Will f/u wound healing progress to decide when to restart Brilinta For HTN, hydralazine 25 bid, For DM2, hold glipizide, reduce humulin N to 20u per last hospital insulin requirement, lispro-low sliding scale For chronic ESRD, HD MWF. Pt skipped Monday dialysis, will do it today with pRBC transfusion. Continue Phoslo, Vit D2, multivitamin, sevelamer For COPD/RENATA, HOB 45, Duoneb PRN, loratidine, CPAP PRN, montelikast, Advair. Cannot tolerate CPAP For [place], bimatoprost For insomnia, benadryl HS prn For hypothyroidism, synthroid 25 Flomax for Bph Prophylaxis: Protonix, heparin SC Q12 Consult: Drs Renan Willis, Dre, Rich, Jensen Escalera Access: L AV fistula. R midline s/r/d/w Dr. Potter <Gallo Potter S - Last Filed: 10/19/17 17:05> Objective - Vital Signs/Intake and Output Vital Signs (last 24 hours): Temp Pulse Resp BP Pulse Ox 98.4 F 72 18 124/57 L 100 10/19/17 16:40 10/19/17 16:40 10/19/17 16:40 10/19/17 16:40 10/19/17 16:40 Intake and Output: 10/19/17 10/19/17 06:59 18:59 Intake Total 240 360 Balance 240 360 - Medications Medications: Current Medications Albuterol/Ipratropium (Duoneb 3 Mg/0.5 Mg (3 Ml) Ud) 3 ml IH [id number] PRN PRN Reason: Shortness of Breath Aspirin (Ecotrin) 81 mg PO DAILY [facility] Last Admin: 10/19/17 09:35 Dose: 81 mg Atorvastatin Calcium (Lipitor) 40 mg PO DIN [facility] Last Admin: 10/18/17 17:40 Dose: 40 mg Calcium Acetate (Phoslo) 1,334 mg PO WM [facility] Last Admin: 10/19/17 12:11 Dose: 1,334 mg Diphenhydramine HCl (Benadryl) 25 mg PO HS PRN PRN Reason: Insomnia Last Admin: 10/19/17 13:50 Dose: 25 mg Ergocalciferol (Drisdol 50,000 Intl Units Cap) 1 cap PO WED [facility] Last Admin: 10/18/17 12:32 Dose: 1 cap Fenofibrate (Tricor) 145 mg PO DAILY [facility] Last Admin: 10/19/17 09:38 Dose: 145 mg Heparin Sodium (Porcine) (Heparin) 5,000 units SC Q12 [facility] PRN Reason: Protocol Last Admin: 10/19/17 09:35 Dose: 5,000 units Hydralazine HCl (Apresoline) 25 mg PO BID [facility] Last Admin: 10/19/17 09:42 Dose: 25 mg Linezolid (Zyvox 600mg/300ml D5w) 600 mg in 300 mls @ 200 mls/hr IVPB Q12 [facility] PRN Reason: Protocol Stop: 10/23/17 22:01 Last Admin: 10/19/17 13:40 Dose: 200 mls/hr Meropenem 250 mg/ Sodium (Chloride) 100 mls @ 100 mls/hr IVPB Q12H [facility] PRN Reason: Protocol Stop: 10/23/17 06:01 Last Admin: 10/19/17 05:08 Dose: 100 mls/hr Micafungin Sodium 100 mg/ (Sodium Chloride) 100 mls @ 100 mls/hr IV DAILY [facility] PRN Reason: Protocol Stop: 10/26/17 10:01 Last Admin: 10/19/17 09:37 Dose: 100 mls/hr Insulin Human NPH (Humulin N) 20 units SC QPM [facility] Last Admin: 10/18/17 19:49 Dose: Not Given Insulin Human Regular (Humulin R High) 0 units SC ACHS [facility] PRN Reason: Protocol Last Admin: 10/19/17 12:15 Dose: Not Given Latanoprost (Xalatan Opht) 0 ml OU HS [facility] Last Admin: 10/18/17 21:43 Dose: 2.5 ml Levothyroxine Sodium (Synthroid) 25 mcg PO 0600 [facility] Last Admin: 10/19/17 05:14 Dose: 25 mcg Loratadine (Claritin) 10 mg PO HS [facility] Last Admin: 10/18/17 21:39 Dose: 10 mg Metoprolol Tartrate (Lopressor) 25 mg PO BID [facility] Last Admin: 10/19/17 09:42 Dose: 25 mg Montelukast Sodium (Singulair) 10 mg PO HS [facility] Last Admin: 10/18/17 21:41 Dose: 10 mg Multivitamins (Thera Tab) 1 tab PO DAILY [facility] Last Admin: 10/19/17 09:38 Dose: 1 tab Salmeterol Xinafoate /Fluticaso [Advair Hfa 230-21] 1 puff IH BID [facility] Last Admin: 10/19/17 09:37 Dose: Not Given Oills-8-Hwqe Ethyl Esters (Lovaza) 2 gm PO BID [facility] Last Admin: 08/02/18 09:36 Dose: 2 gm Oxycodone/Acetaminophen (Percocet 10/325 Mg Tab) 1 tab PO Q6H PRN PRN Reason: Pain, moderate (4-7) Last Admin: 10/19/17 13:49 Dose: 1 tab Pantoprazole Sodium (Protonix Ec Tab) 40 mg PO 0600 [facility] Last Admin: 10/19/17 05:14 Dose: 40 mg Pregabalin (Lyrica) 50 mg PO HS [facility] Last Admin: 10/18/17 21:41 Dose: 50 mg Sevelamer HCl (Renagel) 1,600 mg PO WM [facility] Last Admin: 10/19/17 12:11 Dose: 1,600 mg Sodium Chloride ([place] Nasal [place]) 0 ml NS Q2H PRN PRN Reason: Nasal congestion Tamsulosin HCl (Flomax) 0.4 mg PO HS [facility] Last Admin: 10/18/17 21:40 Dose: 0.4 mg Ticagrelor (Brilinta) 90 mg PO BID [facility] Last Admin: 10/19/17 09:35 Dose: 90 mg - Labs Labs: 10/19/17 05:00 10/19/17 05:00 PT 19.7 SECONDS (9.4-12.5) 10/17/17 08:00 INR 1.69 10/17/17 08:00 APTT 33.4 Seconds (25.1-36.5) 10/16/17 13:30 Assessment and Plan - Assessment and Plan (Free Text) Plan: Pt seen and examined. I have reviewed the note of the medical imaging specialist and agree with it. I have discussed the assessment and plan with the resident. I have reviewed the patient's labs and medications. Pt with fungemia. A Echo was done to evaluate for vegetations. No eye infections. Continue with HD. Pain is controlled. Eating well. Spoke to Dr Urrutia about planning for surgery on Monday. Pt will continue on ASA for CAD.
[2017-10-19] MEDS: Omega-3-Acid Ethyl Esters 1 GM Cap PO SCH ×2 (09:36→17:14)
[2017-10-19] MEDS: SALMETEROL XINAFOATE IH SCH ×2 (09:37→17:14)
[2017-10-19] MEDS: Micafungin 100 MG in Sodium Chloride 0.9% 100 ML IV SCH (09:37)
[2017-10-19] MEDS: FLUTICASO IH SCH ×2 (09:37→17:14)
[2017-10-19] MEDS: Multivitamin Therapeutic Tab PO SCH (09:38)
--- NOTE | 2017-10-19 10:48 | CP.PCM.PN ---
<Marciano Clemente - Last Filed: 10/19/17 10:45> Subjective - Date & Time of Evaluation Date of Evaluation: 10/19/17 Time of Evaluation: 10:45 - Subjective Subjective: Podiatry Progress Note for Dr. Villanueva 52M seen at bedside for infected, necrosing right plantar TMA stump. Patient was scheduled for BKA today with Dr. Urrutia but case has been rescheduled as patient has fungemia. Patient is AAO x 3 and NAD, resting comfortably in bed at time of visit. He states that he has no pain to the ulcer site at this time. atient denies any other acute overnight events or new pedal complaints. Denies any recent N/V/F/C/CP/SOB/D/posterior calf pain when squeezed. Objective - Vital Signs/Intake and Output Vital Signs (last 24 hours): Temp Pulse Resp BP Pulse Ox 98.1 F 69 18 104/46 L 100 10/19/17 06:00 10/19/17 06:00 10/19/17 06:00 10/19/17 06:00 10/19/17 06:00 Intake and Output: 10/19/17 10/19/17 06:59 18:59 Intake Total 240 Balance 240 - Medications Medications: Current Medications Albuterol/Ipratropium (Duoneb 3 Mg/0.5 Mg (3 Ml) Ud) 3 ml IH [id number] PRN PRN Reason: Shortness of Breath Aspirin (Ecotrin) 81 mg PO DAILY [facility] Last Admin: 10/19/17 09:35 Dose: 81 mg Atorvastatin Calcium (Lipitor) 40 mg PO DIN [facility] Last Admin: 10/18/17 17:40 Dose: 40 mg Calcium Acetate (Phoslo) 1,334 mg PO WM [facility] Last Admin: 10/19/17 08:17 Dose: 1,334 mg Diphenhydramine HCl (Benadryl) 25 mg PO HS PRN PRN Reason: Insomnia Last Admin: 10/18/17 21:39 Dose: 25 mg Ergocalciferol (Drisdol 50,000 Intl Units Cap) 1 cap PO WED [facility] Last Admin: 10/18/17 12:32 Dose: 1 cap Fenofibrate (Tricor) 145 mg PO DAILY [facility] Last Admin: 10/19/17 09:38 Dose: 145 mg Heparin Sodium (Porcine) (Heparin) 5,000 units SC Q12 [facility] PRN Reason: Protocol Last Admin: 10/19/17 09:35 Dose: 5,000 units Hydralazine HCl (Apresoline) 25 mg PO BID [facility] Last Admin: 10/19/17 09:42 Dose: 25 mg Linezolid (Zyvox 600mg/300ml D5w) 600 mg in 300 mls @ 200 mls/hr IVPB Q12 [facility] PRN Reason: Protocol Stop: 10/23/17 22:01 Last Admin: 10/19/17 02:41 Dose: 200 mls/hr Meropenem 250 mg/ Sodium (Chloride) 100 mls @ 100 mls/hr IVPB Q12H [facility] PRN Reason: Protocol Stop: 10/23/17 06:01 Last Admin: 10/19/17 05:08 Dose: 100 mls/hr Micafungin Sodium 100 mg/ (Sodium Chloride) 100 mls @ 100 mls/hr IV DAILY [facility] PRN Reason: Protocol Stop: 10/26/17 10:01 Last Admin: 10/19/17 09:37 Dose: 100 mls/hr Insulin Human NPH (Humulin N) 20 units SC QPM [facility] Last Admin: 10/18/17 19:49 Dose: Not Given Insulin Human Regular (Humulin R High) 0 units SC ACHS [facility] PRN Reason: Protocol Last Admin: 10/19/17 08:01 Dose: Not Given Latanoprost (Xalatan Opht) 0 ml OU HS [facility] Last Admin: 10/18/17 21:43 Dose: 2.5 ml Levothyroxine Sodium (Synthroid) 25 mcg PO 0600 [facility] Last Admin: 10/19/17 05:14 Dose: 25 mcg Loratadine (Claritin) 10 mg PO HS [facility] Last Admin: 10/18/17 21:39 Dose: 10 mg Metoprolol Tartrate (Lopressor) 25 mg PO BID [facility] Last Admin: 10/19/17 09:42 Dose: 25 mg Montelukast Sodium (Singulair) 10 mg PO HS [facility] Last Admin: 10/18/17 21:41 Dose: 10 mg Multivitamins (Thera Tab) 1 tab PO DAILY [facility] Last Admin: 10/19/17 09:38 Dose: 1 tab Salmeterol Xinafoate /Fluticaso [Advair Hfa 230-21] 1 puff IH BID [facility] Last Admin: 10/19/17 09:37 Dose: Not Given Prwly-8-Vqiy Ethyl Esters (Lovaza) 2 gm PO BID [facility] Last Admin: 10/19/17 09:36 Dose: 2 gm Oxycodone/Acetaminophen (Percocet 10/325 Mg Tab) 1 tab PO Q6H PRN PRN Reason: Pain, moderate (4-7) Last Admin: 10/18/17 23:35 Dose: 1 tab Pantoprazole Sodium (Protonix Ec Tab) 40 mg PO 0600 [facility] Last Admin: 10/19/17 05:14 Dose: 40 mg Pregabalin (Lyrica) 50 mg PO HS [facility] Last Admin: 10/18/17 21:41 Dose: 50 mg Sevelamer HCl (Renagel) 1,600 mg PO WM [facility] Last Admin: 10/19/17 08:17 Dose: 1,600 mg Sodium Chloride (Christine Nasal [place]) 0 ml NS Q2H PRN PRN Reason: Nasal congestion Tamsulosin HCl (Flomax) 0.4 mg PO [facility] Last Admin: 10/18/17 21:40 Dose: 0.4 mg Ticagrelor (Brilinta) 90 mg PO BID [facility] Last Admin: 10/19/17 09:35 Dose: 90 mg - Labs Labs: 10/19/17 05:00 10/19/17 05:00 PT 19.7 SECONDS (9.4-12.5) 10/17/17 08:00 INR 1.69 10/17/17 08:00 APTT 33.4 Seconds (25.1-36.5) 10/16/17 13:30 - Constitutional Appears: Well, Non-toxic, No Acute Distress - Extremities Exam Additional comments: RLE focused exam: Vasc: DP/PT pulses faintly palpable b/l. CFT to dorsal foot < 3 seconds. Moderate edema noted to TMA site Derm: distal TMA site flap is coapted and reapproximated with sutures and fitz. No unraveling of sutures or backing out of fitz noted. No dehiscence appreciated to the flap. Entire flap is necrosed at this time. There is an open large ulceration measuring approximately 10 cm x 7 cm x 2 cm on the plantar medial aspect of right foot, wound base mixture of fibrotic and necrotic tissue with serous drainage and mild malodor. No tracking, tunneling or undermining. No probe to bone. Neuro: Epicritic and protective sensation grossly absent Ortho: POP to plantar ulceration site. Ankle AROM and passive ROM WNL - Neurological Exam Neurological Exam: Alert, Awake, Oriented x3 - Psychiatric Exam Psychiatric exam: Normal Affect, Normal Mood Assessment and Plan - Assessment and Plan (Free Text) Assessment: 52M seen at bedside for infected, necrosing right plantar TMA stump Plan: Patient seen and evaluated with Dr. Villanueva Afebrile, absent leukocytosis Blood cx (+) yeast species Continue abx, antifungals per ID Wound dressed with betadine, gauze, ABD, kirlix Podiatry will continue to follow and perform wound care until patient undergoes BKA <Deborah Villanueva - Last Filed: 10/25/17 12:24> Objective - Vital Signs/Intake and Output Vital Signs (last 24 hours): Temp Pulse Resp BP Pulse Ox 97.3 F L 80 20 134/54 L 100 10/25/17 11:15 10/25/17 11:15 10/25/17 11:15 10/25/17 11:15 10/25/17 05:50 Intake and Output: 10/25/17 10/25/17 06:59 18:59 Intake Total 690 Balance 690 - Medications Medications: Current Medications Albuterol/Ipratropium (Duoneb 3 Mg/0.5 Mg (3 Ml) Ud) 3 ml IH [id number] PRN PRN Reason: Shortness of Breath Last Admin: 10/23/17 13:35 Dose: 3 ml Arformoterol Tartrate (Brovana) 15 mcg IH [id number] [facility] Last Admin: 10/25/17 07:54 Dose: 15 mcg Aspirin (Ecotrin) 81 mg PO DAILY [facility] Last Admin: 10/22/17 09:33 Dose: 81 mg Atorvastatin Calcium (Lipitor) 40 mg PO DIN [facility] Last Admin: 10/24/17 17:44 Dose: 40 mg Bacitracin (Bacitracin) 1 ea TOP BID [facility] Last Admin: 10/23/17 17:10 Dose: Not Given Budesonide (Pulmicort Respules) 0.5 mg IH [id number] [facility] Last Admin: 10/25/17 07:54 Dose: 0.5 mg Calcium Acetate (Phoslo) 1,334 mg PO WM [facility] Last Admin: 10/25/17 08:46 Dose: Not Given Diphenhydramine HCl (Benadryl) 25 mg PO HS PRN PRN Reason: Insomnia Last Admin: 10/24/17 22:03 Dose: 25 mg Ergocalciferol (Drisdol 50,000 Intl Units Cap) 1 cap PO WED [facility] Last Admin: 10/18/17 12:32 Dose: 1 cap Fenofibrate (Tricor) 145 mg PO DAILY [facility] Last Admin: 10/24/17 09:47 Dose: 145 mg Hydralazine HCl (Apresoline) 25 mg PO BID [facility] Last Admin: 10/21/17 17:04 Dose: Not Given Micafungin Sodium 100 mg/ (Sodium Chloride) 100 mls @ 100 mls/hr IV DAILY [facility] PRN Reason: Protocol Stop: 10/26/17 10:01 Last Admin: 10/24/17 09:41 Dose: 100 mls/hr Argatroban 250 mg/ Dextrose 252.5 mls @ 10.5 mls/hr IV .Q24H [facility]; 2 MCG/KG/MIN PRN Reason: Protocol Last Admin: 10/23/17 17:08 Dose: 10.5 mls/hr Insulin Human NPH (Humulin N) 20 units SC QPM [facility] Last Admin: 10/23/17 19:09 Dose: Not Given Insulin Human Regular (Humulin R High) 0 units SC ACHS [facility] PRN Reason: Protocol Last Admin: 10/24/17 23:29 Dose: Not Given Latanoprost (Xalatan Opht) 0 ml OU HS [facility] Last Admin: 10/24/17 22:03 Dose: 2.5 ml Levothyroxine Sodium (Synthroid) 25 mcg PO 0600 [facility] Last Admin: 10/25/17 06:18 Dose: 25 mcg Loratadine (Claritin) 10 mg PO HS [facility] Last Admin: 10/24/17 22:03 Dose: 10 mg Metoprolol Tartrate (Lopressor) 25 mg PO BID [facility] Last Admin: 10/24/17 17:40 Dose: 25 mg Montelukast Sodium (Singulair) 10 mg PO HS [facility] Last Admin: 10/24/17 22:03 Dose: 10 mg Multivitamins (Thera Tab) 1 tab PO DAILY [facility] Last Admin: 10/24/17 09:29 Dose: 1 tab Salmeterol Xinafoate /Fluticaso [Advair Hfa 230-21] 1 puff IH BID [facility] Last Admin: 10/24/17 18:02 Dose: Not Given Sgtmu-9-Agir Ethyl Esters (Lovaza) 2 gm PO BID [facility] Last Admin: 10/24/17 18:00 Dose: Not Given Ondansetron HCl (Zofran Inj) 4 mg IVP Q6H PRN PRN Reason: Nausea/Vomiting Last Admin: 10/23/17 06:48 Dose: 4 mg Oxycodone/Acetaminophen (Percocet 5/325 Mg Tab) 1 tab PO BID PRN PRN Reason: pain Stop: 10/27/17 19:10 Last Admin: 10/25/17 08:40 Dose: 1 tab Oxycodone/Acetaminophen (Percocet 5/325 Mg Tab) 2 tab PO Q4H PRN PRN Reason: foot pain Stop: 10/27/17 19:13 Pregabalin (Lyrica) 50 mg PO [facility] Last Admin: 10/24/17 22:03 Dose: 50 mg Sevelamer HCl (Renagel) 1,600 mg PO WM [facility] Last Admin: 10/25/17 08:46 Dose: Not Given Sodium Chloride (Christine Nasal [place]) 0 ml NS Q2H PRN PRN Reason: Nasal congestion Sucralfate (Carafate Oral Susp) 1 gm PO 0600,1600 [facility] Last Admin: 10/25/17 06:18 Dose: 1 gm Tamsulosin HCl (Flomax) 0.4 mg PO [facility] Last Admin: 10/24/17 22:03 Dose: 0.4 mg Ticagrelor (Brilinta) 90 mg PO BID [facility] Last Admin: 10/19/17 17:13 Dose: 90 mg - Labs Labs: 10/25/17 06:24 10/25/17 06:24 PT 17.9 SECONDS (9.4-12.5) H 10/20/17 07:00 INR 1.54 10/20/17 07:00 APTT 80.4 Seconds (25.1-36.5) H 10/23/17 19:54 Attending/Attestation - Attestation I have personally seen and examined this patient.: Yes I have fully participated in the care of the patient.: Yes I have reviewed all pertinent clinical information, including history, physical exam and plan: Yes
--- NOTE | 2017-10-19 11:12 | CP.PCM.PN ---
Subjective - Date & Time of Evaluation Date of Evaluation: 10/19/17 Time of Evaluation: 06:50 - Subjective Subjective: Awake, no distress, complaints of pain on right foot Reason for consultation and follow up: Cardiac pre-op evaluation and risk stratification for right foot below knee amputation surgery. history of coronary artery disease with nultiple stents, PPM , ESRD on hemodialysis. Seen and examined by me and Dr. Erickson Objective - Vital Signs/Intake and Output Vital Signs (last 24 hours): Temp Pulse Resp BP Pulse Ox 98.1 F 69 18 104/46 L 100 10/19/17 06:00 10/19/17 06:00 10/19/17 06:00 10/19/17 06:00 10/19/17 06:00 Intake and Output: 10/19/17 10/19/17 06:59 18:59 Intake Total 240 Balance 240 - Medications Medications: Current Medications Albuterol/Ipratropium (Duoneb 3 Mg/0.5 Mg (3 Ml) Ud) 3 ml IH [id number] PRN PRN Reason: Shortness of Breath Aspirin (Ecotrin) 81 mg PO DAILY [facility] Last Admin: 10/19/17 09:35 Dose: 81 mg Atorvastatin Calcium (Lipitor) 40 mg PO DIN [facility] Last Admin: 10/18/17 17:40 Dose: 40 mg Calcium Acetate (Phoslo) 1,334 mg PO WM [facility] Last Admin: 10/19/17 08:17 Dose: 1,334 mg Diphenhydramine HCl (Benadryl) 25 mg PO HS PRN PRN Reason: Insomnia Last Admin: 10/18/17 21:39 Dose: 25 mg Ergocalciferol (Drisdol 50,000 Intl Units Cap) 1 cap PO WED [facility] Last Admin: 10/18/17 12:32 Dose: 1 cap Fenofibrate (Tricor) 145 mg PO DAILY [facility] Last Admin: 10/19/17 09:38 Dose: 145 mg Heparin Sodium (Porcine) (Heparin) 5,000 units SC Q12 [facility] PRN Reason: Protocol Last Admin: 10/19/17 09:35 Dose: 5,000 units Hydralazine HCl (Apresoline) 25 mg PO BID [facility] Last Admin: 10/19/17 09:42 Dose: 25 mg Linezolid (Zyvox 600mg/300ml D5w) 600 mg in 300 mls @ 200 mls/hr IVPB Q12 [facility] PRN Reason: Protocol Stop: 10/23/17 22:01 Last Admin: 10/19/17 02:41 Dose: 200 mls/hr Meropenem 250 mg/ Sodium (Chloride) 100 mls @ 100 mls/hr IVPB Q12H [facility] PRN Reason: Protocol Stop: 10/23/17 06:01 Last Admin: 10/19/17 05:08 Dose: 100 mls/hr Micafungin Sodium 100 mg/ (Sodium Chloride) 100 mls @ 100 mls/hr IV DAILY [facility] PRN Reason: Protocol Stop: 10/26/17 10:01 Last Admin: 10/19/17 09:37 Dose: 100 mls/hr Insulin Human NPH (Humulin N) 20 units SC QPM [facility] Last Admin: 10/18/17 19:49 Dose: Not Given Insulin Human Regular (Humulin R High) 0 units SC ACHS [facility] PRN Reason: Protocol Last Admin: 10/19/17 08:01 Dose: Not Given Latanoprost (Xalatan Opht) 0 ml OU HS [facility] Last Admin: 10/18/17 21:43 Dose: 2.5 ml Levothyroxine Sodium (Synthroid) 25 mcg PO 0600 [facility] Last Admin: 10/19/17 05:14 Dose: 25 mcg Loratadine (Claritin) 10 mg PO HS [facility] Last Admin: 10/18/17 21:39 Dose: 10 mg Metoprolol Tartrate (Lopressor) 25 mg PO BID [facility] Last Admin: 10/19/17 09:42 Dose: 25 mg Montelukast Sodium (Singulair) 10 mg PO [facility] Last Admin: 10/18/17 21:41 Dose: 10 mg Multivitamins (Thera Tab) 1 tab PO DAILY [facility] Last Admin: 10/19/17 09:38 Dose: 1 tab Salmeterol Xinafoate /Fluticaso [Advair Hfa 230-21] 1 puff IH BID [facility] Last Admin: 10/19/17 09:37 Dose: Not Given Azpoq-1-Ipeg Ethyl Esters (Lovaza) 2 gm PO BID [facility] Last Admin: 10/19/17 09:36 Dose: 2 gm Oxycodone/Acetaminophen (Percocet 10/325 Mg Tab) 1 tab PO Q6H PRN PRN Reason: Pain, moderate (4-7) Last Admin: 10/18/17 23:35 Dose: 1 tab Pantoprazole Sodium (Protonix Ec Tab) 40 mg PO 0600 [facility] Last Admin: 10/19/17 05:14 Dose: 40 mg Pregabalin (Lyrica) 50 mg PO HS [facility] Last Admin: 10/18/17 21:41 Dose: 50 mg Sevelamer HCl (Renagel) 1,600 mg PO WM [facility] Last Admin: 10/19/17 08:17 Dose: 1,600 mg Sodium Chloride ([place] Nasal [place]) 0 ml NS Q2H PRN PRN Reason: Nasal congestion Tamsulosin HCl (Flomax) 0.4 mg PO HS [facility] Last Admin: 10/18/17 21:40 Dose: 0.4 mg Ticagrelor (Brilinta) 90 mg PO BID [facility] Last Admin: 10/19/17 09:35 Dose: 90 mg - Labs Labs: 10/19/17 05:00 10/19/17 05:00 PT 19.7 SECONDS (9.4-12.5) 10/17/17 08:00 INR 1.69 10/17/17 08:00 APTT 33.4 Seconds (25.1-36.5) 10/16/17 13:30 - Constitutional Appears: No Acute Distress - Eye Exam Eye Exam: Normal appearance - ENT Exam ENT Exam: Mucous Membranes Moist - Respiratory Exam Respiratory Exam: Clear to Ausculation Bilateral, NORMAL BREATHING PATTERN - Cardiovascular Exam Cardiovascular Exam: +S1, +S2 Additional comments: PPM - GI/Abdominal Exam GI & Abdominal Exam: Soft, Normal Bowel Sounds - Exam Additional comments: hemodialysis 3x a week - Extremities Exam Additional comments: left AV shunt positive bruit/thrill right foot wrapped with kerlix - Neurological Exam Neurological Exam: Alert, Awake, Oriented x3 - Psychiatric Exam Psychiatric exam: Normal Affect - Skin Skin Exam: Dry, Warm Assessment and Plan - Assessment and Plan (Free Text) Assessment: A 52 year old make known to service who came in to the ER due to worsening non healing wound of the right foot. Patient was recently got discharged from [facility] which he underwent amputation of right foot transmetatarsal, stablized and transferred to [facility]. History of coronary artery disease with multiple stents, NSTEMI, ESRD on hemodialysis, peripheral arterial disease, insulin dependent diabetes mellitus, diabetic neuropathy, diabetic retinopathy,PPM for sinus junctional rhythm symptomatic.subdural hematoma post fall, resistant to Plavix, on Brilinta and Aspirin. Plan: For right below knee amputation Surgery was supposed to be today but delayed due to yeast in blood, ID on consult Rescheduled for Monday Hold Brilinta on Monday Continue Aspirin Cleared for surgery with high risk Echo to evaluate vegetation, will follow result Will follow closely postoperatively 2 units of PRBC given during hemodialysis for low H/H Repeat H/H 9.8 and 30.4 Continue current treatment Continue current medications Will follow up Plan and treatment discussed with Dr. Erickson
--- NOTE | 2017-10-19 11:25 | PN ---
Copied To: Jaspreet Forbes MD Attending MD: Jaspreet Forbes MD DATE: 10/19/2017 SUBJECTIVE: The patient is in bed, in no acute distress, nontoxic. No fevers and chills. PHYSICAL EXAMINATION: VITAL SIGNS: Temperature is 98, blood pressure is 120/70, respiratory rate of 16. HEENT: Examination of HEENT is unremarkable. NECK: Supple. LUNGS: Have decreased breath sounds. HEART: Normal S1 and S2. ABDOMEN: Soft. LABORATORY DATA: Laboratory examination reveals a white count of 7.1, hemoglobin of 9, platelets of 54. Coagulation is noted. Chemistries reveals a BUN of 25, creatinine is 4.1. Microbiology reveals there is yeast in the blood and Guerline glabrata by PNA FISH. Review of orders reveals the patient is on meropenem, micafungin, . ASSESSMENT AND PLAN: A 52-year-old male, seen earlier today in [facility], bed 2, who admitted with a right transmetatarsal amputation, stump gangrene. The patient with end-stage renal disease, on hemodialysis; diabetes mellitus; obesity; coronary artery disease; retinopathy; pancreatitis. Admitted now the patient with fungemia, positive yeast in the blood with Guerline glabrata based on PNA FISH. Currently on Mycamine. We will check on the echocardiogram. Should have eye exam. We will order repeat blood cultures x2. Should have sensitivity done with Guerline glabrata by microbiology and the patient's operating room was canceled because of the fungemia. The patient was for amputation today. We will follow closely with you and check on the repeat blood cultures and glabrata fungemia, most likely from the peripherally inserted central catheter line for removal. Jaspreet Forbes MD
[2017-10-19] MEDS: Oxycodone/Acetaminophen 10/325 mg Tab PO PRN (13:49)
--- NOTE | 2017-10-19 16:23 | CARD ---
APPROVED REPORT Date of service: 10/18/2017 EXAM: Two-dimensional and M-mode echocardiogram with Doppler and color Doppler. INDICATION Infection:Rule out subacute bacterial endocarditis 2D DIMENSIONS IVSd1.4 (0.7-1.1cm)LVDd5.2 (3.9-5.9cm) LVOT Diameter2.0 (1.8-2.4cm)PWd1.4 (0.7-1.1cm) LVDs3.6 (2.5-4.0cm)FS (%) 30.6 % LVEF (%)57.7 (>50%) M-Mode DIMENSIONS Aortic Root3.20 (2.2-3.7cm)Aortic Cusp Exc.1.30 (1.5-2.0cm) Aortic Valve AoV Peak Jxiqrcro353.0cm/sAoV VTI58.9cmAO Peak GR.35mmHg LVOT Peak Kveukpwb089.0cm/sLVOT VTI26.40cmAO Mean GR.19mmHg TEJA (VMAX)1.33fd5EPR (VTI)1.41cm2 Mitral Valve MV E Xunrhlhl164.0cm/sMV A Jtzbbhgu259.0cm/sE/A ratio1.5 TDI E/Lateral E'0.0E/Medial E'0.0 Tricuspid Valve TR Peak Tnxapqoi993wi/sRAP [id number] Peak Gr.39mmHg [id number] LEFT VENTRICLE The left ventricle is normal size. There is mild concentric left ventricular hypertrophy. The left ventricular function is normal.EF-55% There is normal LV segmental wall motion. Transmitral Doppler flow pattern is Grade II-pseudonormal filling dynamics. No left ventricle thrombus noted on this study. There is no ventricular septal defect visualized. There is no left ventricular aneurysm. There is no mass noted in the left ventricle. RIGHT VENTRICLE The right ventricle is mildly dilated. There is normal right ventricular wall thickness. Systolic function is mildly reduced. There is a pacemaker lead in the right ventricle. ATRIA The left atrium is mildly dilated. The right atrium is mildly dilated. There is a catheter/pacemaker lead seen in the right atrium. The interatrial septum is intact with no evidence for an atrial septal defect. AORTIC VALVE The aortic valve is calcified and displays decreased opening. The aortic valve is moderately sclerotic. There is moderate aortic regurgitation. There is mild to moderate valvular aortic stenosis. Right coronary cusp is Immobile and echogenic structure attached to Right cusp, same consistency of valve most likely degenerative changes ,but can not R/o Vegetastion, though less likely., May consider LASHAWN if Blood C & S remains Positive. There is no aortic valvular vegetation. MITRAL VALVE The mitral valve is thickened but opens well. Mitral annular calcification is mild to moderate. Mitral regurgitation is mild. There is no mitral valve stenosis. There is no evidence of mitral valve prolapse. TRICUSPID VALVE The tricuspid valve leaflets are thickened , but open well. There is moderate tricuspid regurgitation.RVS-49 mmof Hg There is no tricuspid valve stenosis. There is no tricuspid valve prolapse or vegetation. PULMONIC VALVE The pulmonic valve is mildly thickened. There is trace to mild pulmonic valvular regurgitation. There is no pulmonic valvular stenosis. GREAT VESSELS The aortic root is normal in size. The ascending aorta is normal in size. The pulmonary artery is normal. The IVC is normal in size and collapses >50% with inspiration. PERICARDIAL EFFUSION There is no pleural effusion. There is no pericardial effusion. <Conclusion> This is a F/u Echo to R/o endocarditis as Blood C7S is positive for Fungiemia. The left ventricular function is normal.EF-55% There is moderate aortic regurgitation. There is mild to moderate valvular aortic stenosis. Right coronary cusp is Immobile and echogenic structure attached to Right cusp, same consistency of valve most likely degenerative changes ,but can not R/o Vegetastion, though less likely., May consider LASHAWN if Blood C & S remains Positive. Mitral regurgitation is mild. There is moderate tricuspid regurgitation.RVS-49 mmof Hg There is trace to mild pulmonic valvular regurgitation. There is no pericardial effusion. No significant change from previous Echo dt 10/03/2017 except reduced RVSp secondary to Post dialysis.
[2017-10-19] MEDS: Insulin Human NPH 1 UNITS/0.01 ML SC SCH (17:47)
[2017-10-19] MEDS: Latanoprost 2.5 ml Opht Soln OU SCH (22:48)
--- NOTE | 2017-10-20 00:22 | CON ---
Copied To: Dea Tejada MD Attending MD: Dea Tejada MD DATE: 10/19/2017 HISTORY OF PRESENT ILLNESS: Shortly, the patient is a 52-year-old female. The patient has multiple medical issues including poorly controlled diabetes, history of CVA, and coronary artery disease. The patient also has right foot nonhealing wound, end-stage renal disease, on Monday, Monday and Monday, anemia, cholecystectomy, AV fistula, right eye cornea transplant and many more. The patient is scheduled for below-knee amputation. Psych consult was called for evaluation of depression. The patient was seen and evaluated today in the medical site. The patient presented very well. The patient has good understanding what is going on with her from the medical standpoint. The patient is aware of her medical condition and the patient seems to be very spiritual, very pleasant to talk to. Supportive therapy was provided. The patient agreed to have below-knee amputation. The patient knows that she has infection in her blood and that is why surgery is postponed. The patient reported that she accepting everything what is going on with her from the medical standpoint and the patient denied feeling hopeless or helpless. The patient denied thoughts of harming herself or others. The patient denied that she ever been evaluated by psychiatrist in the past. The patient reported that her appetite is poor not because she does not want to eat, but because she has gastroparesis and she feels not like eating. The patient denied any insomnia. The patient reported that she has future oriented plans. The patient denied hearing voices, denied seeing things. Emotional support and empathic listening was provided. The patient was very receptive. VITAL SIGNS: Vital signs seems to be stable. Temperature 98.4, pulse is 72, blood pressure 104/46, respirations 18, oxygen saturation is 100. MEDICATIONS: Reviewed. The patient was on multiple medications, aspirin, Lipitor, PhosLo, Benadryl, Drisdol, TriCor, heparin, insulin, latanoprost, Synthroid, Zyvox, Claritin, meropenem, Lopressor, Singulair, multivitamins, Advair, Lovaza, Percocet, Protonix, Lyrica, Renagel, [place] nasal spray, Flomax and Breo Ellipta. LABORATORY DATA: Labs reviewed. Most recent was from today. MENTAL STATUS EXAMINATION: As this investigative writer described above. The patient presented to be calm, cooperative, socially appropriate. Good eye contact. Mood described as fine. Affect was reactive, mood congruent. Thought process was coherent and goal directed. Thought content, the patient denied visual, auditory, or tactile hallucinations. Denied paranoid ideation. The patient denied thoughts of harming herself or others. Insight and judgment seems to be good. Impulses are well controlled right now. IMPRESSION: The patient is in disjunctive mood for her medical issues which she tolerates very well. PLAN: We will follow up on this patient every other day in order to provide emotional support and empathic listening. The patient is dealing with the medical issues very well. No signs of agitation, no aggression, no depression. A very pleasant patient to deal with. Thank you very much for letting me participate in care of your patient. Dea Tejada MD
[2017-10-20] MEDS: Linezolid 600 mg in D5W 300 ml 600 MG/300 ML BAG IVPB SCH ×2 (01:25→14:28)
[2017-10-20] MEDS: Arformoterol 15 mcg/2 ml Inh Sol IH SCH ×3 (03:06→19:29)
[2017-10-20] MEDS: Budesonide 0.5 mg/2 ml Inhal Susp UD IH SCH ×3 (03:06→19:29)
[2017-10-20] MEDS: Pantoprazole 40 mg EC Tab PO SCH (05:46)
[2017-10-20] MEDS: Levothyroxine 25 MCG TAB PO SCH (05:46)
--- NOTE | 2017-10-20 06:49 | CP.PCM.PN ---
Subjective - Date & Time of Evaluation Date of Evaluation: 10/20/17 Time of Evaluation: 06:05 - Subjective Subjective: Awake, no distress, complaints of pain on right foot Reason for consultation and follow up: Cardiac pre-op evaluation and risk stratification for right foot below knee amputation surgery. history of coronary artery disease with nultiple stents, PPM , ESRD on hemodialysis. Objective - Vital Signs/Intake and Output Vital Signs (last 24 hours): Temp Pulse Resp BP Pulse Ox 98 F 65 18 116/51 L 100 10/19/17 22:48 10/20/17 01:00 10/19/17 22:48 10/20/17 01:00 10/19/17 22:48 Intake and Output: 10/19/17 10/20/17 18:59 06:59 Intake Total 360 Balance 360 - Medications Medications: Current Medications Albuterol/Ipratropium (Duoneb 3 Mg/0.5 Mg (3 Ml) Ud) 3 ml IH [id number] PRN PRN Reason: Shortness of Breath Arformoterol Tartrate (Brovana) 15 mcg IH [id number] [facility] Last Admin: 10/20/17 03:06 Dose: Not Given Aspirin (Ecotrin) 81 mg PO DAILY [facility] Last Admin: 10/19/17 09:35 Dose: 81 mg Atorvastatin Calcium (Lipitor) 40 mg PO DIN [facility] Last Admin: 10/19/17 17:13 Dose: 40 mg Budesonide (Pulmicort Respules) 0.5 mg IH [id number] [facility] Last Admin: 10/20/17 03:06 Dose: Not Given Calcium Acetate (Phoslo) 1,334 mg PO WM [facility] Last Admin: 10/19/17 17:15 Dose: 1,334 mg Diphenhydramine HCl (Benadryl) 25 mg PO HS PRN PRN Reason: Insomnia Last Admin: 10/19/17 13:50 Dose: 25 mg Ergocalciferol (Drisdol 50,000 Intl Units Cap) 1 cap PO WED [facility] Last Admin: 10/18/17 12:32 Dose: 1 cap Fenofibrate (Tricor) 145 mg PO DAILY [facility] Last Admin: 10/19/17 09:38 Dose: 145 mg Heparin Sodium (Porcine) (Heparin) 5,000 units SC Q12 [facility] PRN Reason: Protocol Last Admin: 10/19/17 22:40 Dose: 5,000 units Hydralazine HCl (Apresoline) 25 mg PO BID [facility] Last Admin: 10/19/17 17:12 Dose: 25 mg Linezolid (Zyvox 600mg/300ml D5w) 600 mg in 300 mls @ 200 mls/hr IVPB Q12 [facility] PRN Reason: Protocol Stop: 10/23/17 22:01 Last Admin: 10/20/17 01:25 Dose: 200 mls/hr Meropenem 250 mg/ Sodium (Chloride) 100 mls @ 100 mls/hr IVPB Q12H [facility] PRN Reason: Protocol Stop: 10/23/17 06:01 Last Admin: 10/20/17 06:27 Dose: 100 mls/hr Micafungin Sodium 100 mg/ (Sodium Chloride) 100 mls @ 100 mls/hr IV DAILY [facility] PRN Reason: Protocol Stop: 10/26/17 10:01 Last Admin: 10/19/17 09:37 Dose: 100 mls/hr Insulin Human NPH (Humulin N) 20 units SC QPM [facility] Last Admin: 10/19/17 17:47 Dose: Not Given Insulin Human Regular (Humulin R High) 0 units SC ACHS [facility] PRN Reason: Protocol Last Admin: 10/19/17 22:40 Dose: Not Given Latanoprost (Xalatan Opht) 0 ml OU HS [facility] Last Admin: 10/19/17 22:48 Dose: 2.5 ml Levothyroxine Sodium (Synthroid) 25 mcg PO 0600 [facility] Last Admin: 10/20/17 05:46 Dose: 25 mcg Loratadine (Claritin) 10 mg PO HS [facility] Last Admin: 10/19/17 22:39 Dose: 10 mg Metoprolol Tartrate (Lopressor) 25 mg PO BID [facility] Last Admin: 10/19/17 17:13 Dose: 25 mg Montelukast Sodium (Singulair) 10 mg PO HS [facility] Last Admin: 10/19/17 22:39 Dose: 10 mg Multivitamins (Thera Tab) 1 tab PO DAILY [facility] Last Admin: 10/19/17 09:38 Dose: 1 tab Salmeterol Xinafoate /Fluticaso [Advair Hfa 230-21] 1 puff IH BID [facility] Last Admin: 08/02/18 17:14 Dose: Not Given Htzgm-8-[id number] Ethyl Esters (Lovaza) 2 gm PO BID [facility] Last Admin: 10/19/17 17:14 Dose: 2 gm Oxycodone/Acetaminophen (Percocet 10/325 Mg Tab) 1 tab PO Q6H PRN PRN Reason: Pain, moderate (4-7) Last Admin: 10/19/17 13:49 Dose: 1 tab Pantoprazole Sodium (Protonix Ec Tab) 40 mg PO 0600 [facility] Last Admin: 10/20/17 05:46 Dose: 40 mg Pregabalin (Lyrica) 50 mg PO HS [facility] Last Admin: 10/19/17 22:39 Dose: 50 mg Sevelamer HCl (Renagel) 1,600 mg PO WM [facility] Last Admin: 10/19/17 17:14 Dose: 1,600 mg Sodium Chloride ([place] Nasal [place]) 0 ml NS Q2H PRN PRN Reason: Nasal congestion Tamsulosin HCl (Flomax) 0.4 mg PO [facility] Last Admin: 10/19/17 22:40 Dose: 0.4 mg Ticagrelor (Brilinta) 90 mg PO BID [facility] Last Admin: 10/19/17 17:13 Dose: 90 mg - Labs Labs: 10/19/17 05:00 10/19/17 05:00 PT 19.7 SECONDS (9.4-12.5) 10/17/17 08:00 INR 1.69 10/17/17 08:00 APTT 33.4 Seconds (25.1-36.5) 10/16/17 13:30 - Constitutional Appears: No Acute Distress - Eye Exam Eye Exam: Normal appearance - ENT Exam ENT Exam: Mucous Membranes Moist - Respiratory Exam Respiratory Exam: Clear to Ausculation Bilateral, NORMAL BREATHING PATTERN - Cardiovascular Exam Cardiovascular Exam: +S1, +S2 Additional comments: PPM - Exam Additional comments: ESRD hemodialysis 3x a week - Extremities Exam Additional comments: left AV shunt +bruit/thrill right foot wrapped with kerlix - Neurological Exam Neurological Exam: Alert, Awake, Oriented x3 - Psychiatric Exam Psychiatric exam: Normal Affect - Skin Skin Exam: Dry, Warm Assessment and Plan - Assessment and Plan (Free Text) Assessment: A 52 year old make known to service who came in to the ER due to worsening non healing wound of the right foot. Patient was recently got discharged from [facility] which he underwent amputation of right foot transmetatarsal, stablized and transferred to [facility]. History of coronary artery disease with multiple stents, NSTEMI, ESRD on hemodialysis, peripheral arterial disease, insulin dependent diabetes mellitus, diabetic neuropathy, diabetic retinopathy,PPM for sinus junctional rhythm symptomatic.subdural hematoma post fall, resistant to Plavix, on Brilinta and Aspirin. Plan: For LASHAWN to rule out endocarditis, (positive blood culture) For right below knee amputation on Monday Hold Brilinta and Aspirin on Monday Cleared for surgery with high risk Will follow closely postoperatively Heart rate and blood pressure controlled Hemoglobin stable On hemodialysis Continue current treatment Continue current medications On IV antibiotics per ID Will follow up Plan and treatment discussed with Dr. Erickson
[2017-10-20 07:24] LABS: BASO # 0.02 K/mm3 (0.0-2.0); BASO % 0.3 % (0.0-3.0); EOS # 0.2 (0.0-0.7); GRAN # 5.53 (1.4-6.5); GRAN % 69.1 % (50.0-68.0); HEMOGLOBIN 10.2 g/dL (14.0-18.0); LYMPH # 1.6 (1.2-3.4); LYMPH % 19.6 % (22.0-35.0); MEAN CELL VOLUME 92.6 fl (80.0-105.0); MEAN CORPUSCULAR HEMOGLOBIN 29.1 pg (25.0-35.0); MEAN CORPUSCULAR HGB CONC 31.4 g/dl (31.0-37.0); MEAN PLATELET VOLUME 12.7 fl (7.0-11.0); MONO # 0.6 (0.1-0.6); RBC 3.51 10^6/uL (3.5-6.1); RED CELL DISTRIBUTION WIDTH 17.5 % (11.5-14.5)
[2017-10-20 07:31] LABS: INR 1.54; PROTHROMBIN TIME 17.9 SECONDS (9.4-12.5)
[2017-10-20 07:34] LABS: PARTIAL THROMBOPLASTIN TIME 32.5 Seconds (25.1-36.5)
[2017-10-20 07:40] LABS: ALB/GLOB RATIO 0.6 (1.1-1.8); ALBUMIN 2.7 g/dL (3.0-4.8); CALCIUM 8.5 mg/dL (8.4-10.5)
[2017-10-20] MEDS: Oxycodone/Acetaminophen 10/325 mg Tab PO PRN ×2 (07:56→22:13)
--- NOTE | 2017-10-20 08:01 | CP.PCM.PN ---
<Asia Aguila - Last Filed: 10/20/17 09:37> Subjective - Date & Time of Evaluation Date of Evaluation: 10/20/17 Time of Evaluation: 07:57 - Subjective Subjective: PGY-[address] Potter 1. Pt had slow bleeding at heparin site from 10pm to 6pm. Total about 5cc. No dizziness, pain, MOON, CP, SOB. No bleeding at other bleeding site 2. 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 LASHAWN at 3pm Objective - Vital Signs/Intake and Output Vital Signs (last 24 hours): Temp Pulse Resp BP Pulse Ox 98 F 65 18 116/51 L 100 10/19/17 22:48 10/20/17 01:00 10/19/17 22:48 10/20/17 01:00 10/19/17 22:48 - Medications Medications: Current Medications Albuterol/Ipratropium (Duoneb 3 Mg/0.5 Mg (3 Ml) Ud) 3 ml IH [id number] PRN PRN Reason: Shortness of Breath Arformoterol Tartrate (Brovana) 15 mcg IH [id number] [facility] Last Admin: 10/20/17 07:37 Dose: 15 mcg Aspirin (Ecotrin) 81 mg PO DAILY [facility] Last Admin: 10/19/17 09:35 Dose: 81 mg Atorvastatin Calcium (Lipitor) 40 mg PO DIN [facility] Last Admin: 10/19/17 17:13 Dose: 40 mg Bacitracin (Bacitracin) 1 ea TOP BID [facility] Budesonide (Pulmicort Respules) 0.5 mg IH [id number] [facility] Last Admin: 10/20/17 07:37 Dose: 0.5 mg Calcium Acetate (Phoslo) 1,334 mg PO WM [facility] Last Admin: 10/19/17 17:15 Dose: 1,334 mg Diphenhydramine HCl (Benadryl) 25 mg PO HS PRN PRN Reason: Insomnia Last Admin: 10/19/17 13:50 Dose: 25 mg Ergocalciferol (Drisdol 50,000 Intl Units Cap) 1 cap PO WED [facility] Last Admin: 10/18/17 12:32 Dose: 1 cap Fenofibrate (Tricor) 145 mg PO DAILY [facility] Last Admin: 10/19/17 09:38 Dose: 145 mg Heparin Sodium (Porcine) (Heparin) 5,000 units SC Q12 [facility] PRN Reason: Protocol Last Admin: 10/19/17 22:40 Dose: 5,000 units Hydralazine HCl (Apresoline) 25 mg PO BID [facility] Last Admin: 10/19/17 17:12 Dose: 25 mg Linezolid (Zyvox 600mg/300ml D5w) 600 mg in 300 mls @ 200 mls/hr IVPB Q12 [facility] PRN Reason: Protocol Stop: 10/23/17 22:01 Last Admin: 10/20/17 01:25 Dose: 200 mls/hr Meropenem 250 mg/ Sodium (Chloride) 100 mls @ 100 mls/hr IVPB Q12H [facility] PRN Reason: Protocol Stop: 10/23/17 06:01 Last Admin: 10/20/17 06:27 Dose: 100 mls/hr Micafungin Sodium 100 mg/ (Sodium Chloride) 100 mls @ 100 mls/hr IV DAILY [facility] PRN Reason: Protocol Stop: 10/26/17 10:01 Last Admin: 10/19/17 09:37 Dose: 100 mls/hr Insulin Human NPH (Humulin N) 20 units SC QPM [facility] Last Admin: 10/19/17 17:47 Dose: Not Given Insulin Human Regular (Humulin R High) 0 units SC ACHS [facility] PRN Reason: Protocol Last Admin: 10/19/17 22:40 Dose: Not Given Latanoprost (Xalatan Opht) 0 ml OU HS [facility] Last Admin: 10/19/17 22:48 Dose: 2.5 ml Levothyroxine Sodium (Synthroid) 25 mcg PO 0600 [facility] Last Admin: 10/20/17 05:46 Dose: 25 mcg Loratadine (Claritin) 10 mg PO HS [facility] Last Admin: 10/19/17 22:39 Dose: 10 mg Metoprolol Tartrate (Lopressor) 25 mg PO BID [facility] Last Admin: 10/19/17 17:13 Dose: 25 mg Montelukast Sodium (Singulair) 10 mg PO HS [facility] Last Admin: 10/19/17 22:39 Dose: 10 mg Multivitamins (Thera Tab) 1 tab PO DAILY [facility] Last Admin: 10/19/17 09:38 Dose: 1 tab Salmeterol Xinafoate /Fluticaso [Advair Hfa 230-21] 1 puff IH BID [facility] Last Admin: 10/19/17 17:14 Dose: Not Given Gbzoo-1-Smqa Ethyl Esters (Lovaza) 2 gm PO BID [facility] Last Admin: 10/19/17 17:14 Dose: 2 gm Oxycodone/Acetaminophen (Percocet 10/325 Mg Tab) 1 tab PO Q6H PRN PRN Reason: Pain, moderate (4-7) Last Admin: 10/20/17 07:56 Dose: 1 tab Pantoprazole Sodium (Protonix Ec Tab) 40 mg PO 0600 [facility] Last Admin: 10/20/17 05:46 Dose: 40 mg Pregabalin (Lyrica) 50 mg PO HS [facility] Last Admin: 10/19/17 22:39 Dose: 50 mg Sevelamer HCl (Renagel) 1,600 mg PO WM [facility] Last Admin: 10/19/17 17:14 Dose: 1,600 mg Sodium Chloride ([place] Nasal [place]) 0 ml NS Q2H PRN PRN Reason: Nasal congestion Tamsulosin HCl (Flomax) 0.4 mg PO [facility] Last Admin: 10/19/17 22:40 Dose: 0.4 mg Ticagrelor (Brilinta) 90 mg PO BID [facility] Last Admin: 10/19/17 17:13 Dose: 90 mg - Labs Labs: 10/20/17 07:00 10/20/17 07:00 PT 17.9 SECONDS (9.4-12.5) H 10/20/17 07:00 INR 1.54 10/20/17 07:00 APTT 32.5 Seconds (25.1-36.5) 10/20/17 07:00 - Constitutional Appears: No Acute Distress - Head Exam Head Exam: ATRAUMATIC, NORMAL INSPECTION, NORMOCEPHALIC - Eye Exam Eye Exam: EOMI, Normal appearance, PERRL. absent: Scleral icterus Pupil Exam: NORMAL ACCOMODATION - ENT Exam ENT Exam: Mucous Membranes Moist - Neck Exam Additional comments: supple - Respiratory Exam Respiratory Exam: Clear to Ausculation Bilateral, NORMAL BREATHING PATTERN. absent: Rales, Rhonchi, Wheezes - Cardiovascular Exam Cardiovascular Exam: REGULAR RHYTHM, +S1, +S2. absent: Murmur - GI/Abdominal Exam GI & Abdominal Exam: Soft. absent: Tenderness Additional comments: dressing on RLQ abd d/c/i. SC needle kina with clot and no visible blood - Extremities Exam Extremities Exam: Calf Tenderness. absent: Pedal Edema Additional comments: RLE dressing d/c/i L finger dry gangrene, unchanged - Back Exam Back Exam: absent: CVA tenderness (L), CVA tenderness (R) - Neurological Exam Neurological Exam: Alert, Awake - Psychiatric Exam Psychiatric exam: Normal Affect, Normal Mood - Skin Skin Exam: Dry, Warm Assessment and Plan - Assessment and Plan (Free Text) Plan: Mr Berger, 52 M recently s/p transmetatarsal amputation of the right foot () due to wet gangrene to the right foot and bone exposure. He is on Dual antiplatelet for recent cardiac stent in May. 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 Fungemia (10/16), R/O thrombi. Had ruled out Opthalmitis. CAD s/p 2 YORDY in LAD (06/13/17) on dual-antiplatelet, CHF, pacemaker (metronic) HTN/PVD RENATA, on CPAP; COPD; severe pulmonary HTN DM_2__, peripheral neuropathy Hx CVA with L residual weakness ESRD MWF due to HTN/DM, with Anemia, Hyperphosphatemia, Secondary Hyperparathyroidism Hypothyroidism Anemia at 7.3 (baseline 8-9), Fe deficiency, asymptomatic. Moxifloxacin and PCN allergy P: For fungemia, mycafungin, day __3___, Merem & Linezolid, day __5__; re-draw blood culture on 10/19. Pending Echo showed EF 55. RVSP 49. Aortic cusp calcified cannot r/o veg. No sig changes to echo 1 month ago. LASHAWN this afternoon at 3 Opthalmologist has r/o endopthalmitis. BKA may likely delayed to next Monday Percocet Q6 PRN; Lyrica HS Lipitor 40, fenofibrate, lovaza 2gm bid For BKA, rehold brilinta on Monday per cardio. Continue ASA. Cardiology cleared. High uriel-operative cardiac risk. Pending ID clearence For anemia, f/u Iron study, TIBC, ferritin. s/p transfusion of 3u PRBC. Goal to reach Hb 10 for surgery. For CAD, Continue ASA, metoprolol 50. Will f/u wound healing progress to decide when to restart Brilinta For HTN, hydralazine 25 bid, For DM2, hold glipizide, reduce humulin N to 20u per last hospital insulin requirement, lispro-low sliding scale For chronic ESRD, HD MWF. Continue Phoslo, Vit D2, multivitamin, sevelamer For COPD/RENATA, HOB 45, Duoneb PRN, loratidine, CPAP PRN, montelikast, Advair. Cannot tolerate CPAP For [place], bimatoprost For insomnia, benadryl HS prn For hypothyroidism, synthroid 25 Flomax for Bph Prophylaxis: Protonix, heparin SC Q12 Consult: Renan Figueroa, Dre, Rich, Lali, Jensen Access: L AV fistula. R IV s/r/d/w Dr. Potter <Gallo Potter S - Last Filed: 10/23/17 20:56> Objective - Vital Signs/Intake and Output Vital Signs (last 24 hours): Temp Pulse Resp BP Pulse Ox 98.3 F 74 18 107/41 L 77 L 10/23/17 17:00 10/23/17 20:30 10/23/17 20:30 10/23/17 20:00 10/23/17 18:10 Intake and Output: 10/23/17 10/24/17 18:59 06:59 Intake Total 581 Balance 581 - Medications Medications: Current Medications Albuterol/Ipratropium (Duoneb 3 Mg/0.5 Mg (3 Ml) Ud) 3 ml IH [id number] PRN PRN Reason: Shortness of Breath Last Admin: 10/23/17 13:35 Dose: 3 ml Arformoterol Tartrate (Brovana) 15 mcg IH [id number] [facility] Last Admin: 10/23/17 20:10 Dose: 15 mcg Aspirin (Ecotrin) 81 mg PO DAILY [facility] Last Admin: 10/22/17 09:33 Dose: 81 mg Atorvastatin Calcium (Lipitor) 40 mg PO DIN [facility] Last Admin: 10/23/17 17:11 Dose: 40 mg Bacitracin (Bacitracin) 1 ea TOP BID [facility] Last Admin: 10/23/17 17:10 Dose: Not Given Budesonide (Pulmicort Respules) 0.5 mg IH [id number] [facility] Last Admin: 10/23/17 20:10 Dose: 0.5 mg Calcium Acetate (Phoslo) 1,334 mg PO WM [facility] Last Admin: 10/23/17 17:12 Dose: 1,334 mg Diphenhydramine HCl (Benadryl) 25 mg PO HS PRN PRN Reason: Insomnia Last Admin: 10/22/17 22:27 Dose: 25 mg Ergocalciferol (Drisdol 50,000 Intl Units Cap) 1 cap PO WED [facility] Last Admin: 10/18/17 12:32 Dose: 1 cap Fenofibrate (Tricor) 145 mg PO DAILY [facility] Last Admin: 10/23/17 17:13 Dose: 145 mg Hydralazine HCl (Apresoline) 25 mg PO BID [facility] Last Admin: 10/21/17 17:04 Dose: Not Given Micafungin Sodium 100 mg/ (Sodium Chloride) 100 mls @ 100 mls/hr IV DAILY [facility] PRN Reason: Protocol Stop: 10/26/17 10:01 Last Admin: 10/23/17 13:09 Dose: 100 mls/hr Argatroban 250 mg/ Dextrose 252.5 mls @ 10.5 mls/hr IV .Q24H [facility]; 2 MCG/KG/MIN PRN Reason: Protocol Last Admin: 10/23/17 17:08 Dose: 10.5 mls/hr Insulin Human NPH (Humulin N) 20 units SC QPM [facility] Last Admin: 10/23/17 19:09 Dose: Not Given Insulin Human Regular (Humulin R High) 0 units SC ACHS [facility] PRN Reason: Protocol Last Admin: 10/23/17 17:04 Dose: Not Given Latanoprost (Xalatan Opht) 0 ml OU HS [facility] Last Admin: 10/22/17 22:27 Dose: 2.5 ml Levothyroxine Sodium (Synthroid) 25 mcg PO 0600 [facility] Last Admin: 10/23/17 06:27 Dose: 25 mcg Loratadine (Claritin) 10 mg PO HS [facility] Last Admin: 10/22/17 22:27 Dose: 10 mg Metoprolol Tartrate (Lopressor) 25 mg PO BID [facility] Last Admin: 10/23/17 17:11 Dose: 25 mg Montelukast Sodium (Singulair) 10 mg PO HS [facility] Last Admin: 10/22/17 22:27 Dose: 10 mg Multivitamins (Thera Tab) 1 tab PO DAILY [facility] Last Admin: 10/23/17 17:15 Dose: 1 tab Salmeterol Xinafoate /Fluticaso [Advair Hfa 230-21] 1 puff IH BID [facility] Last Admin: 10/23/17 17:13 Dose: Not Given Mewgu-8-Vgek Ethyl Esters (Lovaza) 2 gm PO BID [facility] Last Admin: 10/23/17 17:12 Dose: 1 gm Ondansetron HCl (Zofran Inj) 4 mg IVP Q6H PRN PRN Reason: Nausea/Vomiting Last Admin: 10/23/17 06:48 Dose: 4 mg Pregabalin (Lyrica) 50 mg PO [facility] Last Admin: 10/22/17 22:27 Dose: 50 mg Sevelamer HCl (Renagel) 1,600 mg PO WM [facility] Last Admin: 10/23/17 17:15 Dose: 1,600 mg Sodium Chloride ([place] Nasal [place]) 0 ml NS Q2H PRN PRN Reason: Nasal congestion Sucralfate (Carafate Oral Susp) 1 gm PO 0600,1600 [facility] Last Admin: 10/23/17 17:10 Dose: 1 gm Tamsulosin HCl (Flomax) 0.4 mg PO [facility] Last Admin: 10/22/17 22:27 Dose: 0.4 mg Ticagrelor (Brilinta) 90 mg PO BID [facility] Last Admin: 10/19/17 17:13 Dose: 90 mg - Labs Labs: 10/23/17 19:54 10/23/17 06:45 PT 17.9 SECONDS (9.4-12.5) H 10/20/17 07:00 INR 1.54 10/20/17 07:00 APTT 80.4 Seconds (25.1-36.5) H 10/23/17 19:54 Assessment and Plan - Assessment and Plan (Free Text) Plan: Pt seen and examined. I have reviewed the note of the medical esthetician and agree with it. I have discussed the assessment and plan with the resident. I have reviewed the patient's labs and medications. Pt with fungemia. Pain is controlled. Pt's is on Mycfungin. Tolerating HD with no issues. Hb is stable.
[2017-10-20] MEDS: Bacitracin 500 Units/gm Oint Foilpak UD TOP SCH ×2 (12:06→18:29)
[2017-10-20] MEDS: Omega-3-Acid Ethyl Esters 1 GM Cap PO SCH ×2 (12:07→18:32)
[2017-10-20] MEDS: SALMETEROL XINAFOATE IH SCH ×2 (12:08→18:34)
[2017-10-20] MEDS: Multivitamin Therapeutic Tab PO SCH (12:08)
[2017-10-20] MEDS: FLUTICASO IH SCH ×2 (12:08→18:34)
[2017-10-20] MEDS: Micafungin 100 MG in Sodium Chloride 0.9% 100 ML IV SCH (12:28)
[2017-10-20] MEDS: Insulin Reg-HIGH-Coverage SC SCH ×4 (14:11→22:00)
[2017-10-20] MEDS ORDERED: Flumazenil 0.1 mg/ml Inj (5ml) IVP ONE (15:42)
[2017-10-20] MEDS ORDERED: Naloxone 0.4 mg/ml Inj (Adult) ONE (15:42)
[2017-10-20] MEDS ORDERED: Midazolam 2 MG/2 ML VIAL ONE (15:42)
[2017-10-20] MEDS ORDERED: Midazolam 2 MG/2 ML VIAL IV ONE ×2 (15:51→15:52)
--- NOTE | 2017-10-20 16:01 | CP.PCM.PN ---
Subjective - Date & Time of Evaluation Date of Evaluation: 10/20/17 Time of Evaluation: 13:20 - Subjective Subjective: No fevers, not in distress, less pain in the leg, no diarrhea. Objective - Vital Signs/Intake and Output Vital Signs (last 24 hours): Temp Pulse Resp BP Pulse Ox 97.8 F 79 18 120/82 97 10/20/17 06:00 10/20/17 06:00 10/20/17 06:00 10/20/17 06:00 10/20/17 06:00 - Medications Medications: Current Medications Albuterol/Ipratropium (Duoneb 3 Mg/0.5 Mg (3 Ml) Ud) 3 ml IH [id number] PRN PRN Reason: Shortness of Breath Arformoterol Tartrate (Brovana) 15 mcg IH [id number] [facility] Last Admin: 10/20/17 07:37 Dose: 15 mcg Aspirin (Ecotrin) 81 mg PO DAILY [facility] Last Admin: 10/19/17 09:35 Dose: 81 mg Atorvastatin Calcium (Lipitor) 40 mg PO DIN [facility] Last Admin: 10/19/17 17:13 Dose: 40 mg Bacitracin (Bacitracin) 1 ea TOP BID [facility] Budesonide (Pulmicort Respules) 0.5 mg IH [id number] [facility] Last Admin: 10/20/17 07:37 Dose: 0.5 mg Calcium Acetate (Phoslo) 1,334 mg PO WM [facility] Last Admin: 10/19/17 17:15 Dose: 1,334 mg Diphenhydramine HCl (Benadryl) 25 mg PO HS PRN PRN Reason: Insomnia Last Admin: 10/19/17 13:50 Dose: 25 mg Ergocalciferol (Drisdol 50,000 Intl Units Cap) 1 cap PO WED [facility] Last Admin: 10/18/17 12:32 Dose: 1 cap Fenofibrate (Tricor) 145 mg PO DAILY [facility] Last Admin: 10/19/17 09:38 Dose: 145 mg Heparin Sodium (Porcine) (Heparin) 5,000 units SC Q12 [facility] PRN Reason: Protocol Last Admin: 10/19/17 22:40 Dose: 5,000 units Hydralazine HCl (Apresoline) 25 mg PO BID [facility] Last Admin: 10/19/17 17:12 Dose: 25 mg Linezolid (Zyvox 600mg/300ml D5w) 600 mg in 300 mls @ 200 mls/hr IVPB Q12 [facility] PRN Reason: Protocol Stop: 10/23/17 22:01 Last Admin: 10/20/17 01:25 Dose: 200 mls/hr Meropenem 250 mg/ Sodium (Chloride) 100 mls @ 100 mls/hr IVPB Q12H [facility] PRN Reason: Protocol Stop: 10/23/17 06:01 Last Admin: 10/20/17 06:27 Dose: 100 mls/hr Micafungin Sodium 100 mg/ (Sodium Chloride) 100 mls @ 100 mls/hr IV DAILY [facility] PRN Reason: Protocol Stop: 10/26/17 10:01 Last Admin: 10/19/17 09:37 Dose: 100 mls/hr Insulin Human NPH (Humulin N) 20 units SC QPM [facility] Last Admin: 10/19/17 17:47 Dose: Not Given Insulin Human Regular (Humulin R High) 0 units SC ACHS [facility] PRN Reason: Protocol Last Admin: 10/19/17 22:40 Dose: Not Given Latanoprost (Xalatan Opht) 0 ml OU HS [facility] Last Admin: 10/19/17 22:48 Dose: 2.5 ml Levothyroxine Sodium (Synthroid) 25 mcg PO 0600 [facility] Last Admin: 10/20/17 05:46 Dose: 25 mcg Loratadine (Claritin) 10 mg PO HS [facility] Last Admin: 10/19/17 22:39 Dose: 10 mg Metoprolol Tartrate (Lopressor) 25 mg PO BID [facility] Last Admin: 10/19/17 17:13 Dose: 25 mg Montelukast Sodium (Singulair) 10 mg PO HS [facility] Last Admin: 10/19/17 22:39 Dose: 10 mg Multivitamins (Thera Tab) 1 tab PO DAILY [facility] Last Admin: 10/19/17 09:38 Dose: 1 tab Salmeterol Xinafoate /Fluticaso [Advair Hfa 230-21] 1 puff IH BID [facility] Last Admin: 10/19/17 17:14 Dose: Not Given [id number] Ethyl Esters (Lovaza) 2 gm PO BID [facility] Last Admin: 10/19/17 17:14 Dose: 2 gm Oxycodone/Acetaminophen (Percocet 10/325 Mg Tab) 1 tab PO Q6H PRN PRN Reason: Pain, moderate (4-7) Last Admin: 10/20/17 07:56 Dose: 1 tab Pantoprazole Sodium (Protonix Ec Tab) 40 mg PO 0600 [facility] Last Admin: 10/20/17 05:46 Dose: 40 mg Pregabalin (Lyrica) 50 mg PO HS [facility] Last Admin: 10/19/17 22:39 Dose: 50 mg Sevelamer HCl (Renagel) 1,600 mg PO WM [facility] Last Admin: 10/19/17 17:14 Dose: 1,600 mg Sodium Chloride ([place] Nas[place]) 0 ml NS Q2H PRN PRN Reason: Nasal congestion Tamsulosin HCl (Flomax) 0.4 mg PO HS [facility] Last Admin: 10/19/17 22:40 Dose: 0.4 mg Ticagrelor (Brilinta) 90 mg PO BID [facility] Last Admin: 10/19/17 17:13 Dose: 90 mg - Labs Labs: 10/20/17 07:00 10/20/17 07:00 PT 17.9 SECONDS (9.4-12.5) H 10/20/17 07:00 INR 1.54 10/20/17 07:00 APTT 32.5 Seconds (25.1-36.5) 10/20/17 07:00 - Constitutional Appears: Non-toxic, Chronically Ill - Head Exam Head Exam: NORMAL INSPECTION - ENT Exam ENT Exam: Mucous Membranes Moist - Neck Exam Neck Exam: absent: Lymphadenopathy, Meningismus - Respiratory Exam Respiratory Exam: Decreased Breath Sounds - Cardiovascular Exam Cardiovascular Exam: +S1, +S2 - GI/Abdominal Exam GI & Abdominal Exam: Soft. absent: Tenderness - Extremities Exam Additional comments: left leg dressings in place Assessment and Plan - Assessment and Plan (Free Text) Plan: Assessment Guerline glabrata fungemia, R/O due to PICC line, R/O endophthalmitis, R/O endocarditis right TMA stump gangrene history of right foot cellulitis with wet gangrene, R/O osteomyelitis S/P TMA history of bilateral healthcare-associated pneumonia history of sepsis with gastroenteritis and C. diff. associated diarrhea ESRD on HD DM obesity CAD S/P PCI retinopathy history of pancreatitis Plan follow up repeat blood cx from yesterday and will follow up sensitivities of the C. glabrata in the blood; follow up 2D echo; patient will need Ophtho exam continue Zyvox and Merrem will continue to monitor clinically
[2017-10-20] MEDS ORDERED: Sodium Chloride 0.9% 1,000 ML IV SCH (16:30)
--- NOTE | 2017-10-20 16:56 | CP.PCM.PCO ---
Addendum Addendum: 10/20/17 16:55 pt was in OR today, psychiatric team will f/u on Monday, no acute issues in case of change in mental status call
--- NOTE | 2017-10-20 18:05 | CARD ---
APPROVED REPORT Date of service: 10/20/2017 EXAM: Transesophageal echocardiogram with color flow Doppler. INDICATION Infection : Rule out subacute bacterial endocarditis Mitral Valve E/A ratio0.0 TDI E/Lateral E'0.0E/Medial E'0.0 Tricuspid Valve TR Peak [id number] [id number] Peak Gr.86mmHg [id number] LEFT VENTRICLE The left ventricle is normal size. There is mild to moderate concentric left ventricular hypertrophy. The left ventricular function is normal.EF-55-60% There is normal LV segmental wall motion. The left ventricular diastolic function is normal. No left ventricle thrombus noted on this study. There is no ventricular septal defect visualized. There is no left ventricular aneurysm. There is no mass noted in the left ventricle. RIGHT VENTRICLE The right ventricle is mildly dilated. There is normal right ventricular wall thickness. Systolic function is mildly reduced. There is a pacemaker lead in the right ventricle. ATRIA The left atrium is mildly dilated. The right atrium is mildly dilated. There is a catheter/pacemaker lead seen in the right atrium. The interatrial septum is intact with no evidence for an atrial septal defect. AORTIC VALVE The aortic valve is calcified and displays decreased opening. There is moderate to severe aortic regurgitation. Aortic sclerosis Vs mild As. right Coronary is immobile Echogenic structure mobile attached to right coronary cusp 0.5/ 0.7 cm and same consistency as aotic cusp, most likely calcium and degenerative changes, but can not r/o Vegetation in appropriate clinical setting. MITRAL VALVE The mitral valve leaflets are thickened. There is no evidence of mitral valve prolapse. There is no mitral valve stenosis. Mitral regurgitation is mild. TRICUSPID VALVE The tricuspid valve leaflets display thickening. There is severe tricuspid regurgitation.RVSP-98 mmof Hg There is no tricuspid valve prolapse or vegetation. There is no tricuspid valve stenosis. PULMONIC VALVE The pulmonic valve is mildly thickened. There is mild pulmonic valvular regurgitation. There is no pulmonic valvular stenosis. GREAT VESSELS The aortic root is normal in size. The ascending aorta is normal in size. The pulmonary artery is normal. The IVC is normal in size and collapses >50% with inspiration. <Conclusion> This is a F/u LASHAWN to R/o endocarditis b/c Blood C& S Positive for Fungiemia. The left ventricular function is normal.EF-55-60% There is moderate to severe aortic regurgitation. Aortic sclerosis Vs mild As. right Coronary is immobile Echogenic structure mobile attached to right coronary cusp 0.5/ 0.7 cm and same consistency as aotic cusp, most likely calcium and degenerative changes, but can not r/o Vegetation in appropriate clinical setting. Mitral regurgitation is mild. There is severe tricuspid regurgitation.RVSP-98 mmof Hg There is mild pulmonic valvular regurgitation. No vegetation noted on PPM Leads When compared from all previous echoes 09/2017 and 06/11/2017 .... No Significant change in Aortic Valve and Echogenic structure( Current Mobile Echogenic Structure was present in Echo in May 2017).Except AR in current study in moderate to severe AR. No Evidence of Endocarditis in Current study.
[2017-10-20] MEDS: Insulin Human NPH 1 UNITS/0.01 ML SC SCH (18:30)
--- NOTE | 2017-10-20 21:48 | PN ---
Copied To: Jarred Escalera MD Attending MD: Jarred Escalera MD DATE: 10/20/2017 PULMONARY PROGRESS NOTE REFERRING PHYSICIAN: Dr. Potter. SUBJECTIVE: The patient is lying in the bed, sleepy, arousable, on pain medication. Night was unremarkable. Awaiting for cardiology procedure for transesophageal echo. No headache, no rhinitis. No nausea, no vomiting, no diarrhea. Pain in the right foot is under control with the pain medication. OBJECTIVE: GENERAL: In no distress. VITAL SIGNS: Temperature is 98, heart rate 70, respiratory rate is 18, blood pressure 114/46, and pulse ox 98% on 2 L nasal cannula. HEENT: Moist mucous membranes. Crowded airway. Mallampati score is 4. NECK: Supple. No JVD. LUNGS: Fair airflow with rhonchi. HEART: S1 and S2. ABDOMEN: Soft, nontender. No organomegaly. EXTREMITIES: There is no edema of the left leg. Right foot is with dressing. NEUROLOGIC: He is sleepy, arousable. MEDICATIONS: He is on hydralazine 25 mg twice a day, bacitracin ointment to affected area twice a day, Benadryl 25 mg at bedtime p.r.n., Brilinta 90 mg twice a day, Brovana 50 mcg inhaled twice a day, Claritin 10 mg at bedtime, vitamin D 50,000 units weekly, albuterol/Atrovent nebulizer every 6 hours p.r.n., Ecotrin 81 mg daily, Flomax 0.4 mg daily, heparin 5000 units subcu every 12 hours, insulin coverage, Lipitor 40 mg daily, metoprolol tartrate 25 mg twice a day, Lovaza 2 g every 12 hours, Lyrica 50 mg at bedtime, meropenem 250 mg every 12 hours, micafungin 100 mg daily, Percocet 10/325 one tablet every 6 hours p.r.n., Protonix 40 mg daily, Pulmicort inhaled twice a day, Renagel with meals, Singulair 10 mg daily, IV fluid normal saline 10 mL/hour, Synthroid 25 mcg daily, multivitamins daily, Tricor 145 mcg daily, and Zyvox 600 mg every 12 hours. LABORATORY DATA: Shows hemoglobin 10.2, hematocrit 32.5, WBC 8, and platelets 63. INR 1.54, PTT 32. Sodium 135, potassium 4.5, chloride 97, bicarbonate 28. BUN 43, creatinine 5.3. Glucose 119. Calcium is 8.5. AST 39, ALT 19, alk phos is 63. Albumin is 2.7. Microbiology, one out of two blood cultures on admission has a yeast. IMPRESSION AND PLAN: Severe peripheral vascular disease, end up with nonhealing ulcer, requiring partial amputation of the foot, has a nonhealing amputation site. Admitted for further workup, being scheduled for right BKA, had fungemia, being treated with antifungal, seen by Infectious Diseases. Other issues are chronic lung disease, sleep apnea syndrome, coronary artery disease, diabetes, hypertension, peripheral neuropathy. Transesophageal echo is being done to assure there is no structural abnormality or endocarditis. Pulmonary point of view, continue inhaled bronchodilator. Keep head at 45 degrees. Continue CPAP/BiPAP while sleeping. If sedated, needs close cardiopulmonary monitoring because of sleep apnea. Thank you and we will follow with you. Jarred Escalera MD
[2017-10-20] MEDS: Latanoprost 2.5 ml Opht Soln OU SCH (22:02)
--- NOTE | 2017-10-20 23:12 | CP.PCM.PN ---
Subjective - Date & Time of Evaluation Date of Evaluation: 10/20/17 Time of Evaluation: 23:11 - Subjective Subjective: # 24 angiocath was inserted in right hand. Objective - Vital Signs/Intake and Output Vital Signs (last 24 hours): Temp Pulse Resp BP Pulse Ox 97.9 F 59 L 20 93/39 L 100 10/20/17 22:48 10/20/17 22:48 10/20/17 22:48 10/20/17 22:48 10/20/17 22:48 Intake and Output: 10/20/17 10/21/17 18:59 06:59 Intake Total 75 Balance 75 - Medications Medications: Current Medications Albuterol/Ipratropium (Duoneb 3 Mg/0.5 Mg (3 Ml) Ud) 3 ml IH [id number] PRN PRN Reason: Shortness of Breath Arformoterol Tartrate (Brovana) 15 mcg IH [id number] [facility] Last Admin: 10/20/17 19:29 Dose: Not Given Aspirin (Ecotrin) 81 mg PO DAILY [facility] Last Admin: 10/20/17 12:06 Dose: Not Given Atorvastatin Calcium (Lipitor) 40 mg PO DIN [facility] Last Admin: 10/20/17 18:31 Dose: 40 mg Bacitracin (Bacitracin) 1 ea TOP BID [facility] Last Admin: 10/20/17 18:29 Dose: 1 ea Budesonide (Pulmicort Respules) 0.5 mg IH [id number] [facility] Last Admin: 10/20/17 19:29 Dose: Not Given Calcium Acetate (Phoslo) 1,334 mg PO WM [facility] Last Admin: 10/20/17 18:33 Dose: 1,334 mg Diphenhydramine HCl (Benadryl) 25 mg PO HS PRN PRN Reason: Insomnia Last Admin: 10/19/17 13:50 Dose: 25 mg Ergocalciferol (Drisdol 50,000 Intl Units Cap) 1 cap PO WED [facility] Last Admin: 10/18/17 12:32 Dose: 1 cap Fenofibrate (Tricor) 145 mg PO DAILY [facility] Last Admin: 10/20/17 12:08 Dose: Not Given Heparin Sodium (Porcine) (Heparin) 5,000 units SC Q12 [facility] PRN Reason: Protocol Last Admin: 10/20/17 22:00 Dose: 5,000 units Hydralazine HCl (Apresoline) 25 mg PO BID [facility] Last Admin: 10/20/17 18:28 Dose: 25 mg Linezolid (Zyvox 600mg/300ml D5w) 600 mg in 300 mls @ 200 mls/hr IVPB Q12 [facility] PRN Reason: Protocol Stop: 10/23/17 22:01 Last Admin: 10/20/17 14:28 Dose: 200 mls/hr Meropenem 250 mg/ Sodium (Chloride) 100 mls @ 100 mls/hr IVPB Q12H [facility] PRN Reason: Protocol Stop: 10/23/17 06:01 Last Admin: 10/20/17 18:16 Dose: 100 mls/hr Micafungin Sodium 100 mg/ (Sodium Chloride) 100 mls @ 100 mls/hr IV DAILY [facility] PRN Reason: Protocol Stop: 10/26/17 10:01 Last Admin: 10/20/17 12:28 Dose: 100 mls/hr Insulin Human NPH (Humulin N) 20 units SC QPM [facility] Last Admin: 10/20/17 18:30 Dose: Not Given Insulin Human Regular (Humulin R High) 0 units SC ACHS [facility] PRN Reason: Protocol Last Admin: 10/20/17 22:00 Dose: Not Given Latanoprost (Xalatan Opht) 0 ml OU HS [facility] Last Admin: 10/20/17 22:02 Dose: 2.5 ml Levothyroxine Sodium (Synthroid) 25 mcg PO 0600 [facility] Last Admin: 10/20/17 05:46 Dose: 25 mcg Loratadine (Claritin) 10 mg PO HS [facility] Last Admin: 10/20/17 21:59 Dose: 10 mg Metoprolol Tartrate (Lopressor) 25 mg PO BID [facility] Last Admin: 10/20/17 18:31 Dose: 25 mg Montelukast Sodium (Singulair) 10 mg PO HS [facility] Last Admin: 10/20/17 22:00 Dose: 10 mg Multivitamins (Thera Tab) 1 tab PO DAILY [facility] Last Admin: 10/20/17 12:08 Dose: Not Given Salmeterol Xinafoate /Fluticaso [Advair Hfa 230-21] 1 puff IH BID [facility] Last Admin: 10/20/17 18:34 Dose: Not Given [id number]-2-Dpge Ethyl Esters (Lovaza) 2 gm PO BID [facility] Last Admin: 10/20/17 18:32 Dose: 2 gm Oxycodone/Acetaminophen (Percocet 10/325 Mg Tab) 1 tab PO Q6H PRN PRN Reason: Pain, moderate (4-7) Last Admin: 10/20/17 22:13 Dose: 1 tab Pantoprazole Sodium (Protonix Ec Tab) 40 mg PO 0600 [facility] Last Admin: 10/20/17 05:46 Dose: 40 mg Pregabalin (Lyrica) 50 mg PO HS [facility] Last Admin: 10/20/17 22:00 Dose: 50 mg Sevelamer HCl (Renagel) 1,600 mg PO WM [facility] Last Admin: 10/20/17 18:33 Dose: 1,600 mg Sodium Chloride ([place] Nasal [place]) 0 ml NS Q2H PRN PRN Reason: Nasal congestion Tamsulosin HCl (Flomax) 0.4 mg PO [facility] Last Admin: 10/20/17 21:59 Dose: 0.4 mg Ticagrelor (Brilinta) 90 mg PO BID [facility] Last Admin: 10/19/17 17:13 Dose: 90 mg - Labs Labs: 10/20/17 07:00 10/20/17 07:00 PT 17.9 SECONDS (9.4-12.5) H 10/20/17 07:00 INR 1.54 10/20/17 07:00 APTT 32.5 Seconds (25.1-36.5) 10/20/17 07:00
[2017-10-21] MEDS: Linezolid 600 mg in D5W 300 ml 600 MG/300 ML BAG IVPB SCH ×2 (02:03→09:39)
[2017-10-21] MEDS: Levothyroxine 25 MCG TAB PO SCH (05:34)
[2017-10-21] MEDS: Pantoprazole 40 mg EC Tab PO SCH (05:34)
[2017-10-21] MEDS: Oxycodone/Acetaminophen 10/325 mg Tab PO PRN ×2 (05:44→22:49)
[2017-10-21] MEDS: Arformoterol 15 mcg/2 ml Inh Sol IH SCH ×2 (07:29→19:55)
[2017-10-21] MEDS: Albuterol-Ipratrop 3 mg / 0.5 (3 ml) UD IH PRN (07:29)
[2017-10-21] MEDS: Budesonide 0.5 mg/2 ml Inhal Susp UD IH SCH ×2 (07:29→19:55)
[2017-10-21 07:57] LABS: BASO # 0.02 K/mm3 (0.0-2.0); BASO % 0.4 % (0.0-3.0); EOS # 0.2 (0.0-0.7); EOS % 3.3 % (1.5-5.0); GRAN # 2.88 (1.4-6.5); GRAN % 58.5 % (50.0-68.0); HEMOGLOBIN 8.8 g/dL (14.0-18.0); LYMPH # 1.4 (1.2-3.4); MEAN CORPUSCULAR HEMOGLOBIN 29.2 pg (25.0-35.0); MEAN CORPUSCULAR HGB CONC 31.8 g/dl (31.0-37.0); MONO # 0.5 (0.1-0.6); MONO % 9.8 % (1.0-6.0); RBC 3.01 10^6/uL (3.5-6.1); RED CELL DISTRIBUTION WIDTH 16.9 % (11.5-14.5); WHITE BLOOD COUNT 4.9 10^3/ul (4.5-11.0)
[2017-10-21 08:05] LABS: PLATELET COUNT 40 10^3/uL (120.0-450.0)
[2017-10-21 08:15] LABS: ALB/GLOB RATIO 0.6 (1.1-1.8); ALBUMIN 2.3 g/dL (3.0-4.8); CALCIUM 7.9 mg/dL (8.4-10.5)
[2017-10-21] MEDS: Bacitracin 500 Units/gm Oint Foilpak UD TOP SCH ×2 (09:29→17:35)
[2017-10-21] MEDS: Insulin Reg-HIGH-Coverage SC SCH ×6 (09:32→21:55)
[2017-10-21] MEDS: Omega-3-Acid Ethyl Esters 1 GM Cap PO SCH ×2 (09:33→18:05)
[2017-10-21] MEDS: Micafungin 100 MG in Sodium Chloride 0.9% 100 ML IV SCH (09:35)
[2017-10-21] MEDS: Multivitamin Therapeutic Tab PO SCH (09:38)
[2017-10-21] MEDS: FLUTICASO IH SCH ×2 (10:00→18:07)
[2017-10-21] MEDS: SALMETEROL XINAFOATE IH SCH ×2 (10:00→18:07)
--- NOTE | 2017-10-21 10:03 | CP.PCM.PN ---
<Ismael Jeffers - Last Filed: 10/21/17 09:59> Subjective - Date & Time of Evaluation Date of Evaluation: 10/21/17 Time of Evaluation: 10:00 - Subjective Subjective: Podiatry Progress Note for Dr. Quevedo 52M seen at bedside with attending Dr. Quevedo for infected, necrosing right plantar TMA stump. Patient is seen resting comfortably in bed, in good spirits, AAO x 3 and NAD. Patient reports he is aware that he will be going for a right BKA Monday/Monday. He states that he has no pain to the ulcer site at this time. Patient denies any other acute overnight events or new pedal complaints. Denies any recent N/V/F/C/CP/SOB/D/posterior calf pain when squeezed. No further pedal complaints at this time. Objective - Vital Signs/Intake and Output Vital Signs (last 24 hours): Temp Pulse Resp BP Pulse Ox 97.6 F 61 20 109/46 L 100 10/21/17 07:43 10/21/17 09:33 10/21/17 07:43 10/21/17 09:33 10/21/17 07:43 Intake and Output: 10/21/17 10/21/17 06:59 18:59 Intake Total 240 Balance 240 - Medications Medications: Current Medications Albuterol/Ipratropium (Duoneb 3 Mg/0.5 Mg (3 Ml) Ud) 3 ml IH [id number] PRN PRN Reason: Shortness of Breath Last Admin: 10/21/17 07:29 Dose: 3 ml Arformoterol Tartrate (Brovana) 15 mcg IH [id number] [facility] Last Admin: 10/21/17 07:29 Dose: 15 mcg Aspirin (Ecotrin) 81 mg PO DAILY [facility] Last Admin: 10/21/17 09:30 Dose: 81 mg Atorvastatin Calcium (Lipitor) 40 mg PO DIN [facility] Last Admin: 10/20/17 18:31 Dose: 40 mg Bacitracin (Bacitracin) 1 ea TOP BID [facility] Last Admin: 10/21/17 09:29 Dose: 1 ea Budesonide (Pulmicort Respules) 0.5 mg IH [id number] [facility] Last Admin: 10/21/17 07:29 Dose: 0.5 mg Calcium Acetate (Phoslo) 1,334 mg PO WM [facility] Last Admin: 10/21/17 09:36 Dose: 1,334 mg Diphenhydramine HCl (Benadryl) 25 mg PO HS PRN PRN Reason: Insomnia Last Admin: 10/19/17 13:50 Dose: 25 mg Ergocalciferol (Drisdol 50,000 Intl Units Cap) 1 cap PO WED [facility] Last Admin: 10/18/17 12:32 Dose: 1 cap Fenofibrate (Tricor) 145 mg PO DAILY [facility] Last Admin: 10/21/17 09:38 Dose: 145 mg Heparin Sodium (Porcine) (Heparin) 5,000 units SC Q12 [facility] PRN Reason: Protocol Last Admin: 10/20/17 22:00 Dose: 5,000 units Hydralazine HCl (Apresoline) 25 mg PO BID [facility] Last Admin: 10/21/17 09:23 Dose: 25 mg Linezolid (Zyvox 600mg/300ml D5w) 600 mg in 300 mls @ 200 mls/hr IVPB Q12 [facility] PRN Reason: Protocol Stop: 10/23/17 22:01 Last Admin: 10/21/17 09:39 Dose: 200 mls/hr Meropenem 250 mg/ Sodium (Chloride) 100 mls @ 100 mls/hr IVPB Q12H [facility] PRN Reason: Protocol Stop: 10/23/17 06:01 Last Admin: 10/21/17 05:33 Dose: 100 mls/hr Micafungin Sodium 100 mg/ (Sodium Chloride) 100 mls @ 100 mls/hr IV DAILY [facility] PRN Reason: Protocol Stop: 10/26/17 10:01 Last Admin: 10/21/17 09:35 Dose: 100 mls/hr Insulin Human NPH (Humulin N) 20 units SC QPM [facility] Last Admin: 10/20/17 18:30 Dose: Not Given Insulin Human Regular (Humulin R High) 0 units SC ACHS [facility] PRN Reason: Protocol Last Admin: 10/21/17 09:32 Dose: Not Given Latanoprost (Xalatan Opht) 0 ml OU HS [facility] Last Admin: 10/20/17 22:02 Dose: 2.5 ml Levothyroxine Sodium (Synthroid) 25 mcg PO 0600 [facility] Last Admin: 10/21/17 05:34 Dose: 25 mcg Loratadine (Claritin) 10 mg PO [facility] Last Admin: 10/20/17 21:59 Dose: 10 mg Metoprolol Tartrate (Lopressor) 25 mg PO BID [facility] Last Admin: 10/21/17 09:33 Dose: 25 mg Montelukast Sodium (Singulair) 10 mg PO [facility] Last Admin: 10/20/17 22:00 Dose: 10 mg Multivitamins (Thera Tab) 1 tab PO DAILY [facility] Last Admin: 10/21/17 09:38 Dose: 1 tab Salmeterol Xinafoate /Fluticaso [Advair Hfa 230-21] 1 puff IH BID [facility] Last Admin: 10/20/17 18:34 Dose: Not Given Pstfk-1-Xlas Ethyl Esters (Lovaza) 2 gm PO BID [facility] Last Admin: 10/21/17 09:33 Dose: 2 gm Oxycodone/Acetaminophen (Percocet 10/325 Mg Tab) 1 tab PO Q6H PRN PRN Reason: Pain, moderate (4-7) Last Admin: 10/21/17 05:44 Dose: 1 tab Pantoprazole Sodium (Protonix Ec Tab) 40 mg PO 0600 [facility] Last Admin: 10/21/17 05:34 Dose: 40 mg Pregabalin (Lyrica) 50 mg PO [facility] Last Admin: 10/20/17 22:00 Dose: 50 mg Sevelamer HCl (Renagel) 1,600 mg PO WM [facility] Last Admin: 10/21/17 09:36 Dose: 1,600 mg Sodium Chloride ([place] Nasal [place]) 0 ml NS Q2H PRN PRN Reason: Nasal congestion Tamsulosin HCl (Flomax) 0.4 mg PO [facility] Last Admin: 10/20/17 21:59 Dose: 0.4 mg Ticagrelor (Brilinta) 90 mg PO BID [facility] Last Admin: 10/19/17 17:13 Dose: 90 mg - Labs Labs: 10/21/17 07:00 10/21/17 07:00 PT 17.9 SECONDS (9.4-12.5) H 10/20/17 07:00 INR 1.54 10/20/17 07:00 APTT 32.5 Seconds (25.1-36.5) 10/20/17 07:00 - Constitutional Appears: Well, Non-toxic, No Acute Distress - Extremities Exam Extremities Exam: absent: Calf Tenderness Additional comments: RLE focused exam: Vasc: DP/PT pulses faintly palpable b/l. CFT to dorsal foot < 3 seconds. Moderate edema noted to TMA site Derm: distal TMA site flap is coapted and reapproximated with sutures and fitz. No unraveling of sutures or backing out of fitz noted. No dehiscence appreciated to the flap. Entire flap is necrosed at this time. There is an open large ulceration measuring approximately 10 cm x 7 cm x 2 cm on the plantar medial aspect of right foot, wound base mixture of fibrotic and necrotic tissue with serous drainage and mild malodor. No tracking, tunneling or undermining. No probe to bone. Neuro: Epicritic and protective sensation grossly absent Ortho: POP to plantar ulceration site. Ankle AROM and passive ROM WNL - Neurological Exam Neurological Exam: Alert, Awake, Oriented x3 - Psychiatric Exam Psychiatric exam: Normal Affect, Normal Mood Assessment and Plan - Assessment and Plan (Free Text) Assessment: 52M seen at bedside for infected, necrosing right plantar TMA stump Plan: Patient seen and evaluated with Dr. Quevedo Afebrile, absent leukocytosis Blood cx (+) yeast species Continue abx, antifungals per ID Wound dressed with betadine, gauze, ABD, kirlix Podiatry will continue to follow and perform wound care until patient undergoes BKA <Adria Quevedo - Last Filed: 10/24/17 10:28> Objective - Vital Signs/Intake and Output Vital Signs (last 24 hours): Temp Pulse Resp BP Pulse Ox 98.3 F 94 H 11 L 129/58 L 98 10/23/17 17:00 10/24/17 09:30 10/24/17 07:06 10/24/17 06:43 10/24/17 06:43 - Medications Medications: Current Medications Albuterol/Ipratropium (Duoneb 3 Mg/0.5 Mg (3 Ml) Ud) 3 ml IH [id number] PRN PRN Reason: Shortness of Breath Last Admin: 10/23/17 13:35 Dose: 3 ml Arformoterol Tartrate (Brovana) 15 mcg IH [id number] [facility] Last Admin: 10/24/17 08:27 Dose: 15 mcg Aspirin (Ecotrin) 81 mg PO DAILY [facility] Last Admin: 10/22/17 09:33 Dose: 81 mg Atorvastatin Calcium (Lipitor) 40 mg PO DIN [facility] Last Admin: 10/23/17 17:11 Dose: 40 mg Bacitracin (Bacitracin) 1 ea TOP BID [facility] Last Admin: 10/23/17 17:10 Dose: Not Given Budesonide (Pulmicort Respules) 0.5 mg IH [id number] [facility] Last Admin: 10/24/17 08:27 Dose: 0.5 mg Calcium Acetate (Phoslo) 1,334 mg PO WM [facility] Last Admin: 10/24/17 09:29 Dose: 1,334 mg Diphenhydramine HCl (Benadryl) 25 mg PO HS PRN PRN Reason: Insomnia Last Admin: 10/23/17 21:35 Dose: 25 mg Ergocalciferol (Drisdol 50,000 Intl Units Cap) 1 cap PO WED [facility] Last Admin: 10/18/17 12:32 Dose: 1 cap Fenofibrate (Tricor) 145 mg PO DAILY [facility] Last Admin: 10/24/17 09:47 Dose: 145 mg Hydralazine HCl (Apresoline) 25 mg PO BID [facility] Last Admin: 10/21/17 17:04 Dose: Not Given Micafungin Sodium 100 mg/ (Sodium Chloride) 100 mls @ 100 mls/hr IV DAILY [facility] PRN Reason: Protocol Stop: 10/26/17 10:01 Last Admin: 10/24/17 09:41 Dose: 100 mls/hr Argatroban 250 mg/ Dextrose 252.5 mls @ 10.5 mls/hr IV .Q24H [facility]; 2 MCG/KG/MIN PRN Reason: Protocol Last Admin: 10/23/17 17:08 Dose: 10.5 mls/hr Insulin Human NPH (Humulin N) 20 units SC QPM [facility] Last Admin: 10/23/17 19:09 Dose: Not Given Insulin Human Regular (Humulin R High) 0 units SC ACHS [facility] PRN Reason: Protocol Last Admin: 10/24/17 09:12 Dose: Not Given Latanoprost (Xalatan Opht) 0 ml OU HS [facility] Last Admin: 10/23/17 22:01 Dose: 2.5 ml Levothyroxine Sodium (Synthroid) 25 mcg PO 0600 [facility] Last Admin: 10/24/17 05:23 Dose: 25 mcg Loratadine (Claritin) 10 mg PO HS [facility] Last Admin: 10/23/17 21:35 Dose: 10 mg Metoprolol Tartrate (Lopressor) 25 mg PO BID [facility] Last Admin: 10/24/17 09:30 Dose: 25 mg Montelukast Sodium (Singulair) 10 mg PO HS [facility] Last Admin: 10/23/17 21:35 Dose: 10 mg Multivitamins (Thera Tab) 1 tab PO DAILY [facility] Last Admin: 10/24/17 09:29 Dose: 1 tab Salmeterol Xinafoate /Fluticaso [Advair Hfa 230-21] 1 puff IH BID [facility] Last Admin: 10/23/17 17:13 Dose: Not Given Svoaq-3-Psot Ethyl Esters (Lovaza) 2 gm PO BID [facility] Last Admin: 10/24/17 09:30 Dose: 2 gm Ondansetron HCl (Zofran Inj) 4 mg IVP Q6H PRN PRN Reason: Nausea/Vomiting Last Admin: 10/23/17 06:48 Dose: 4 mg Pregabalin (Lyrica) 50 mg PO HS [facility] Last Admin: 10/23/17 21:35 Dose: 50 mg Sevelamer HCl (Renagel) 1,600 mg PO WM [facility] Last Admin: 10/24/17 09:47 Dose: 1,600 mg Sodium Chloride ([place] Nasal [place]) 0 ml NS Q2H PRN PRN Reason: Nasal congestion Sucralfate (Carafate Oral Susp) 1 gm PO 0600,1600 [facility] Last Admin: 10/24/17 05:23 Dose: 1 gm Tamsulosin HCl (Flomax) 0.4 mg PO HS [facility] Last Admin: 10/23/17 21:35 Dose: 0.4 mg Ticagrelor (Brilinta) 90 mg PO BID [facility] Last Admin: 10/19/17 17:13 Dose: 90 mg - Labs Labs: 10/24/17 07:00 10/24/17 07:00 PT 17.9 SECONDS (9.4-12.5) H 10/20/17 07:00 INR 1.54 10/20/17 07:00 APTT 80.4 Seconds (25.1-36.5) H 10/23/17 19:54 Attending/Attestation - Attestation I have personally seen and examined this patient.: Yes I have fully participated in the care of the patient.: Yes I have reviewed all pertinent clinical information, including history, physical exam and plan: Yes
--- NOTE | 2017-10-21 15:26 | PN ---
Copied To: Jaspreet Forbes MD Attending MD: Jaspreet Forbes MD DATE: 10/21/2017 SUBJECTIVE: The patient is in bed, in no acute distress, nontoxic. PHYSICAL EXAMINATION: VITAL SIGNS: Temperature is 98, blood pressure is 109/40, respiratory rate of 18. HEENT: Unremarkable. NECK: Supple. LUNGS: Have decreased breath sounds. HEART: Normal S1, S2. ABDOMEN: Soft, nontender. LABORATORY DATA: Reveals a white count of 4.9, hemoglobin of 8, and creatinine is 4.4. Blood cultures are positive for Guerline glabrata. The repeat blood cultures are negative. Review of orders reveals the patient to be on meropenem, micafungin, and linezolid. ASSESSMENT AND PLAN: A 52-year-old male who is seen earlier today in [facility] [place], bed 2 with Guerline glabrata fungemia secondary to peripherally inserted central catheter line, which has been removed, must rule out endocarditis and in a patient with a right stump transmetatarsal amputation gangrene and diabetes, obesity, coronary artery disease, end-stage renal disease, on hemodialysis. Echo from yesterday is reviewed. No vegetation seen on the PPM leads. Assuming the ophthalmology exam is negative, we will need 2 weeks of micafungin, today is day #3 of micafungin of 14 days. The patient for OR. Yesterday, the patient had a transesophageal echo by Dr. Erickson. Jaspreet Forbes MD
[2017-10-21] MEDS: Insulin Human NPH 1 UNITS/0.01 ML SC SCH (17:21)
[2017-10-21] MEDS: Latanoprost 2.5 ml Opht Soln OU SCH (22:43)
[2017-10-22] MEDS ORDERED: Dextrose 50% SYRINGE Inj (50 ml) IVP ONE (01:11)
[2017-10-22] MEDS: Levothyroxine 25 MCG TAB PO SCH (05:57)
[2017-10-22] MEDS: Pantoprazole 40 mg EC Tab PO SCH (05:57)
--- NOTE | 2017-10-22 06:19 | CP.PCM.PN ---
Subjective - Date & Time of Evaluation Date of Evaluation: 10/22/17 Time of Evaluation: 06:13 - Subjective Subjective: General Surgery Progress note for Dr. Urrutia This 52M was seen and examined this AM at bedside no acute events overnight. He reports he is ready for surgery. He denies any chest pain or SOB, or any new symptoms. Objective - Vital Signs/Intake and Output Vital Signs (last 24 hours): Temp Pulse Resp BP Pulse Ox 98.4 F 78 20 123/52 L 100 10/21/17 15:57 10/21/17 18:05 10/21/17 15:57 10/21/17 18:05 10/21/17 15:57 Intake and Output: 10/21/17 10/22/17 18:59 06:59 Intake Total 480 Balance 480 - Medications Medications: Current Medications Albuterol/Ipratropium (Duoneb 3 Mg/0.5 Mg (3 Ml) Ud) 3 ml IH [id number] PRN PRN Reason: Shortness of Breath Last Admin: 10/21/17 07:29 Dose: 3 ml Arformoterol Tartrate (Brovana) 15 mcg IH [id number] [facility] Last Admin: 10/21/17 19:55 Dose: 15 mcg Aspirin (Ecotrin) 81 mg PO DAILY [facility] Last Admin: 10/21/17 09:30 Dose: 81 mg Atorvastatin Calcium (Lipitor) 40 mg PO DIN [facility] Last Admin: 10/21/17 18:04 Dose: 40 mg Bacitracin (Bacitracin) 1 ea TOP BID [facility] Last Admin: 10/21/17 17:35 Dose: 1 ea Budesonide (Pulmicort Respules) 0.5 mg IH [id number] [facility] Last Admin: 10/21/17 19:55 Dose: 0.5 mg Calcium Acetate (Phoslo) 1,334 mg PO WM [facility] Last Admin: 10/21/17 17:28 Dose: 1,334 mg Diphenhydramine HCl (Benadryl) 25 mg PO HS PRN PRN Reason: Insomnia Last Admin: 10/21/17 22:50 Dose: 25 mg Ergocalciferol (Drisdol 50,000 Intl Units Cap) 1 cap PO WED [facility] Last Admin: 10/18/17 12:32 Dose: 1 cap Fenofibrate (Tricor) 145 mg PO DAILY [facility] Last Admin: 10/21/17 09:38 Dose: 145 mg Heparin Sodium (Porcine) (Heparin) 5,000 units SC Q12 [facility] PRN Reason: Protocol Last Admin: 10/21/17 10:01 Dose: 5,000 units Hydralazine HCl (Apresoline) 25 mg PO BID [facility] Last Admin: 10/21/17 17:04 Dose: Not Given Micafungin Sodium 100 mg/ (Sodium Chloride) 100 mls @ 100 mls/hr IV DAILY [facility] PRN Reason: Protocol Stop: 10/26/17 10:01 Last Admin: 10/21/17 09:35 Dose: 100 mls/hr Insulin Human NPH (Humulin N) 20 units SC QPM [facility] Last Admin: 10/21/17 17:21 Dose: Not Given Insulin Human Regular (Humulin R High) 0 units SC ACHS [facility] PRN Reason: Protocol Last Admin: 10/21/17 17:34 Dose: 2 units Latanoprost (Xalatan Opht) 0 ml OU HS [facility] Last Admin: 10/21/17 22:43 Dose: 2.5 ml Levothyroxine Sodium (Synthroid) 25 mcg PO 0600 [facility] Last Admin: 10/22/17 05:57 Dose: 25 mcg Loratadine (Claritin) 10 mg PO HS [facility] Last Admin: 10/21/17 22:43 Dose: 10 mg Metoprolol Tartrate (Lopressor) 25 mg PO BID [facility] Last Admin: 10/21/17 18:05 Dose: 25 mg Montelukast Sodium (Singulair) 10 mg PO HS [facility] Last Admin: 10/21/17 22:42 Dose: 10 mg Multivitamins (Thera Tab) 1 tab PO DAILY [facility] Last Admin: 10/21/17 09:38 Dose: 1 tab Salmeterol Xinafoate /Fluticaso [Advair Hfa 230-21] 1 puff IH BID [facility] Last Admin: 10/21/17 18:07 Dose: Not Given Wtkyf-7-Ernu Ethyl Esters (Lovaza) 2 gm PO BID [facility] Last Admin: 10/21/17 18:05 Dose: 2 gm Oxycodone/Acetaminophen (Percocet 10/325 Mg Tab) 1 tab PO Q6H PRN PRN Reason: Pain, moderate (4-7) Last Admin: 08/04/18 22:49 Dose: 1 tab Pantoprazole Sodium (Protonix Ec Tab) 40 mg PO 0600 [facility] Last Admin: 10/22/17 05:57 Dose: 40 mg Pregabalin (Lyrica) 50 mg PO HS [facility] Last Admin: 10/21/17 22:43 Dose: 50 mg Sevelamer HCl (Renagel) 1,600 mg PO WM [facility] Last Admin: 10/21/17 17:29 Dose: 1,600 mg Sodium Chloride ([place] Nasal [place]) 0 ml NS Q2H PRN PRN Reason: Nasal congestion Tamsulosin HCl (Flomax) 0.4 mg PO HS [facility] Last Admin: 10/21/17 22:42 Dose: 0.4 mg Ticagrelor (Brilinta) 90 mg PO BID [facility] Last Admin: 10/19/17 17:13 Dose: 90 mg - Labs Labs: 10/21/17 07:00 10/21/17 07:00 PT 17.9 SECONDS (9.4-12.5) H 10/20/17 07:00 INR 1.54 10/20/17 07:00 APTT 32.5 Seconds (25.1-36.5) 10/20/17 07:00 - Constitutional Appears: Non-toxic, No Acute Distress - Head Exam Head Exam: ATRAUMATIC, NORMOCEPHALIC - Eye Exam Eye Exam: EOMI - ENT Exam ENT Exam: Mucous Membranes Moist - Respiratory Exam Respiratory Exam: NORMAL BREATHING PATTERN - Cardiovascular Exam Cardiovascular Exam: +S1, +S2 - GI/Abdominal Exam GI & Abdominal Exam: Soft. absent: Distended, Firm, Guarding, Rigid, Tenderness - Neurological Exam Neurological Exam: Alert, Awake - Psychiatric Exam Psychiatric exam: Normal Affect, Normal Mood - Skin Skin Exam: Dry, Intact Assessment and Plan - Assessment and Plan (Free Text) Assessment: 52M with ESRD, PAD and thrombocytopenia HIT pannel was ordered, Heparin held, zyvox and merrem held due to their potential to lower platelets Plan for OR monday continue medical managment and medical optimization follow up HIT panel Further recs per Dr. Renan Aburto PGY3
[2017-10-22] MEDS: Budesonide 0.5 mg/2 ml Inhal Susp UD IH SCH ×2 (07:28→21:35)
[2017-10-22] MEDS: Arformoterol 15 mcg/2 ml Inh Sol IH SCH ×2 (07:28→21:35)
[2017-10-22 08:03] LABS: BASO # 0.02 K/mm3 (0.0-2.0); BASO % 0.2 % (0.0-3.0); EOS # 0.2 (0.0-0.7); EOS % 2.5 % (1.5-5.0); GRAN # 5.84 (1.4-6.5); GRAN % 69.1 % (50.0-68.0); HEMOGLOBIN 9.3 g/dL (14.0-18.0); LYMPH # 1.6 (1.2-3.4); LYMPH % 18.5 % (22.0-35.0); MEAN CELL VOLUME 90.6 fl (80.0-105.0); MEAN CORPUSCULAR HEMOGLOBIN 29.2 pg (25.0-35.0); MEAN CORPUSCULAR HGB CONC 32.2 g/dl (31.0-37.0); MEAN PLATELET VOLUME 11.3 fl (7.0-11.0); MONO # 0.8 (0.1-0.6); MONO % 9.7 % (1.0-6.0); RBC 3.19 10^6/uL (3.5-6.1); RED CELL DISTRIBUTION WIDTH 16.8 % (11.5-14.5); WHITE BLOOD COUNT 8.5 10^3/ul (4.5-11.0)
[2017-10-22 08:13] LABS: PLATELET COUNT 41 10^3/uL (120.0-450.0)
[2017-10-22] MEDS: Insulin Reg-HIGH-Coverage SC SCH ×3 (08:14→22:14)
[2017-10-22 08:36] LABS: ALB/GLOB RATIO 0.6 (1.1-1.8); ALBUMIN 2.5 g/dL (3.0-4.8); CALCIUM 8.2 mg/dL (8.4-10.5)
[2017-10-22] MEDS: Omega-3-Acid Ethyl Esters 1 GM Cap PO SCH (09:00)
[2017-10-22] MEDS: Multivitamin Therapeutic Tab PO SCH (09:33)
[2017-10-22] MEDS: Micafungin 100 MG in Sodium Chloride 0.9% 100 ML IV SCH (09:36)
[2017-10-22] MEDS: FLUTICASO IH SCH ×2 (09:39→17:12)
[2017-10-22] MEDS: SALMETEROL XINAFOATE IH SCH ×2 (09:39→17:12)
[2017-10-22] MEDS: Bacitracin 500 Units/gm Oint Foilpak UD TOP SCH (09:39)
[2017-10-22] MEDS: Oxycodone/Acetaminophen 10/325 mg Tab PO PRN ×2 (09:57→17:09)
--- NOTE | 2017-10-22 13:41 | CP.PCM.PN ---
Subjective - Date & Time of Evaluation Date of Evaluation: 10/22/17 Time of Evaluation: 11:40 - Subjective Subjective: Podiatry Progress Note for Dr. Villanueva 52M seen at bedside regarding for infected, necrosing right plantar TMA stump. Patient is seen resting comfortably in bed,in NAD. Patient reports he is aware that he will be going for a right BKA Monday/Monday. He states that he has no pain to the ulcer site at this time. Patient denies any other acute overnight events or new pedal complaints. Reports feeling nauseated and vomited once earlier this morning. Denies any recent N/V/F/C/CP/SOB/D/posterior calf pain when squeezed. No further pedal complaints at this time. Objective - Vital Signs/Intake and Output Vital Signs (last 24 hours): Temp Pulse Resp BP Pulse Ox 98.7 F 72 18 109/59 L 100 10/22/17 08:45 10/22/17 11:28 10/22/17 08:45 10/22/17 11:28 10/22/17 08:45 Intake and Output: 10/22/17 10/22/17 06:59 18:59 Intake Total 0 Output Total 0 Balance 0 - Medications Medications: Current Medications Albuterol/Ipratropium (Duoneb 3 Mg/0.5 Mg (3 Ml) Ud) 3 ml IH [id number] PRN PRN Reason: Shortness of Breath Last Admin: 10/21/17 07:29 Dose: 3 ml Arformoterol Tartrate (Brovana) 15 mcg IH [id number] [facility] Last Admin: 10/22/17 07:28 Dose: 15 mcg Aspirin (Ecotrin) 81 mg PO DAILY [facility] Last Admin: 10/22/17 09:33 Dose: 81 mg Atorvastatin Calcium (Lipitor) 40 mg PO DIN [facility] Last Admin: 10/21/17 18:04 Dose: 40 mg Bacitracin (Bacitracin) 1 ea TOP BID [facility] Last Admin: 10/22/17 09:39 Dose: 1 ea Budesonide (Pulmicort Respules) 0.5 mg IH [id number] [facility] Last Admin: 10/22/17 07:28 Dose: 0.5 mg Calcium Acetate (Phoslo) 1,334 mg PO WM [facility] Last Admin: 10/22/17 11:49 Dose: Not Given Diphenhydramine HCl (Benadryl) 25 mg PO HS PRN PRN Reason: Insomnia Last Admin: 10/21/17 22:50 Dose: 25 mg Ergocalciferol (Drisdol 50,000 Intl Units Cap) 1 cap PO WED [facility] Last Admin: 10/18/17 12:32 Dose: 1 cap Fenofibrate (Tricor) 145 mg PO DAILY [facility] Last Admin: 10/22/17 09:33 Dose: 145 mg Heparin Sodium (Porcine) (Heparin) 5,000 units SC Q12 [facility] PRN Reason: Protocol Last Admin: 10/21/17 10:01 Dose: 5,000 units Hydralazine HCl (Apresoline) 25 mg PO BID [facility] Last Admin: 10/21/17 17:04 Dose: Not Given Micafungin Sodium 100 mg/ (Sodium Chloride) 100 mls @ 100 mls/hr IV DAILY [facility] PRN Reason: Protocol Stop: 10/26/17 10:01 Last Admin: 10/22/17 09:36 Dose: 100 mls/hr Insulin Human NPH (Humulin N) 20 units SC QPM [facility] Last Admin: 10/21/17 17:21 Dose: Not Given Insulin Human Regular (Humulin R High) 0 units SC ACHS [facility] PRN Reason: Protocol Last Admin: 10/22/17 08:14 Dose: Not Given Latanoprost (Xalatan Opht) 0 ml OU HS [facility] Last Admin: 10/21/17 22:43 Dose: 2.5 ml Levothyroxine Sodium (Synthroid) 25 mcg PO 0600 [facility] Last Admin: 10/22/17 05:57 Dose: 25 mcg Loratadine (Claritin) 10 mg PO HS [facility] Last Admin: 10/21/17 22:43 Dose: 10 mg Metoprolol Tartrate (Lopressor) 25 mg PO BID [facility] Last Admin: 10/22/17 11:28 Dose: Not Given Montelukast Sodium (Singulair) 10 mg PO HS [facility] Last Admin: 10/21/17 22:42 Dose: 10 mg Multivitamins (Thera Tab) 1 tab PO DAILY [facility] Last Admin: 10/22/17 09:33 Dose: 1 tab Salmeterol Xinafoate /Fluticaso [Advair Hfa 230-21] 1 puff IH BID [facility] Last Admin: 10/22/17 09:39 Dose: Not Given Siecx-7-Snvl Ethyl Esters (Lovaza) 2 gm PO BID [facility] Last Admin: 10/22/17 09:00 Dose: 2 gm Ondansetron HCl (Zofran Inj) 4 mg IVP Q6H PRN PRN Reason: Nausea/Vomiting Oxycodone/Acetaminophen (Percocet 10/325 Mg Tab) 1 tab PO Q6H PRN PRN Reason: Pain, moderate (4-7) Last Admin: 10/22/17 09:57 Dose: 1 tab Pantoprazole Sodium (Protonix Ec Tab) 40 mg PO 0600 [facility] Last Admin: 10/22/17 05:57 Dose: 40 mg Pregabalin (Lyrica) 50 mg PO [facility] Last Admin: 10/21/17 22:43 Dose: 50 mg Sevelamer HCl (Renagel) 1,600 mg PO WM [facility] Last Admin: 10/22/17 11:49 Dose: Not Given Sodium Chloride ([place] Nasal [place]) 0 ml NS Q2H PRN PRN Reason: Nasal congestion Tamsulosin HCl (Flomax) 0.4 mg PO [facility] Last Admin: 10/21/17 22:42 Dose: 0.4 mg Ticagrelor (Brilinta) 90 mg PO BID [facility] Last Admin: 10/19/17 17:13 Dose: 90 mg - Labs Labs: 10/22/17 07:30 10/22/17 07:30 PT 17.9 SECONDS (9.4-12.5) H 10/20/17 07:00 INR 1.54 10/20/17 07:00 APTT 32.5 Seconds (25.1-36.5) 10/20/17 07:00 - Constitutional Appears: Well, Non-toxic, No Acute Distress - Extremities Exam Extremities Exam: absent: Calf Tenderness Additional comments: RLE focused exam: Vasc: DP/PT pulses faintly palpable b/l. CFT to dorsal foot < 3 seconds. Moderate edema noted to TMA site Derm: distal TMA site flap is coapted and reapproximated with sutures and fitz. No unraveling of sutures or backing out of fitz noted. No dehiscence appreciated to the flap. Entire flap is necrosed at this time. There is an open large ulceration measuring approximately 10 cm x 7 cm x 2 cm on the plantar medial aspect of right foot, wound base mixture of fibrotic and necrotic tissue with serous drainage and mild malodor. No tracking, tunneling or undermining. No probe to bone. Neuro: Epicritic and protective sensation grossly absent Ortho: POP to plantar ulceration site. Ankle AROM and passive ROM WNL - Neurological Exam Neurological Exam: Alert, Awake, Oriented x3 - Psychiatric Exam Psychiatric exam: Normal Affect, Normal Mood Assessment and Plan - Assessment and Plan (Free Text) Assessment: 52M seen at bedside for infected, necrosing right plantar TMA stump Plan: Patient seen and evaluated with Dr. Villanueva Afebrile, absent leukocytosis Blood cx (+) yeast species Continue abx, antifungals per ID Wound dressed with betadine, gauze, ABD, kirlix Podiatry will continue to follow and perform wound care until patient undergoes BKA
--- NOTE | 2017-10-22 14:32 | PN ---
Copied To: Gallo Potter MD Attending MD: Gallo Potter MD DATE: 10/22/2017 SUBJECTIVE: The patient has no complaints of any chest pain. He states that he was having nausea, vomiting. He had a little sugar. PHYSICAL EXAMINATION: VITAL SIGNS: Temperature is 98.7, pulse of 72, blood pressure is 109/59, respirations 18. GENERAL: The patient is lying in bed, flat, comfortable. HEENT: No oral lesion. Anicteric sclerae. Moist mucosa. NECK: No JVD, adenopathy, or thyromegaly. CARDIOVASCULAR: S1 and S2, regular. No murmurs, rubs, or gallops. LUNGS: Clear to auscultation bilaterally. No wheeze, rales, or rhonchi. ABDOMEN: Bowel sounds are positive, soft, nontender and nondistended. EXTREMITIES: No cyanosis, clubbing or edema. LABORATORY DATA: White count of 8.5, hemoglobin 9.3, platelet count is 41. ASSESSMENT: 1. Nausea. 2. Thrombocytopenia, new onset. 3. Right leg transmetatarsal amputation stump gangrene. 4. Fungemia. 5. Coronary artery disease, was on drug-eluting stent in 05/2017. 6. Pacemaker. 7. Hypertension. 8. Peripheral arterial disease. 9. Obstructive sleep apnea, on CPAP. 10. Chronic obstructive pulmonary disease. 11. Diabetes type 2. 12. Diabetic neuropathy. 13. Diabetic nephropathy. 14. Diabetic retinopathy. 15. Secondary hyperparathyroidism. 16. Anemia secondary to chronic kidney disease. 17. End-stage renal disease, on hemodialysis. 18. Pulmonary hypertension. PLAN: The patient has already received transfusions. He does have a low platelet count. This has been chronic in the past, but not as what was it is now. I have asked Dr. Morris to evaluate. The patient has a hemoglobin stable at 9.3. He is due for dialysis tomorrow and he is going to be having surgery in 2 days. The patient is on hydralazine. He is going to continue with Brilinta for his stent and coronary artery disease. The patient is receiving vitamin D. He is on heparin that has been placed on hold because of the thrombocytopenia. The patient is on Lipitor for dyslipidemia. He is on Lyrica for his diabetic neuropathy. The patient is on micafungin. This will be continued. I did speak to Dr. Forbes today. The patient is receiving phosphate binders with calcium acetate and sevelamer. The patient is going to continue with Synthroid for hypothyroidism. He does get CPAP. He is on a renal diet. I will place him on Zofran for his symptoms as well. Gallo Potter MD
--- NOTE | 2017-10-22 18:24 | PN ---
Copied To: Jaspreet Forbes MD Attending MD: Jaspreet Forbes MD DATE: 10/22/2017 SUBJECTIVE: The patient is in bed, in no acute distress, nontoxic. PHYSICAL EXAMINATION: VITAL SIGNS: Temperature is 98, blood pressure is 140/60, respiratory rate of 18. HEENT: Unremarkable. NECK: Supple. LUNGS: Have decreased breath sounds. HEART: Normal S1 and S2. ABDOMEN: Soft, nontender. LABORATORY DATA: Reveals a white count of 8.5, hemoglobin of 9, platelets of 41,000. BUN of 45, creatinine of 5.8. ASSESSMENT AND PLAN: This is a 52-year-old male with Guerline glabrata fungemia secondary to peripherally inserted central catheter line, which was removed, status post right stump transmetatarsal amputation and gangrene, diabetic, obesity, coronary artery disease, end-stage renal disease. No vegetations on the pacemaker leads on the transesophageal echo and currently on day #4 of Mycamine. Discontinued the Zyvox and meropenem, possibly secondary causing low platelets. We will continue to follow up with you. Jaspreet Forbes MD
--- NOTE | 2017-10-22 19:44 | PN ---
Copied To: Jarred Escalera MD Attending MD: Jarred Escalera MD DATE: 10/22/2017 PULMONARY PROGRESS NOTE REFERRING PHYSICIAN: Gallo Potter MD SUBJECTIVE: He is sitting up in a bed. Dentition is at bedside. Not tolerating much oral intake. Gets nausea. No shortness of breath. No chest pain. Has a soft stool. Right foot pain requiring pain medication, noncompliant with CPAP and BiPAP. OBJECTIVE: GENERAL: In no acute distress. VITAL SIGNS: Temperature is 98, heart rate 72, respiratory rate is 18, blood pressure 108/59, pulse ox 100% on room air. HEENT: Moist mucous membranes. Crowded airway. Mallampati score is 4. NECK: Supple. No JVD. LUNGS: Have a fair airflow with rhonchi. HEART: S1 and S2. ABDOMEN: Soft, nontender. No organomegaly. EXTREMITIES: No edema of the left leg. Right foot is in dressing. NEUROLOGICAL: Awake and alert. Follows simple command. MEDICATIONS: He is on hydralazine 25 mg twice a day which is on hold, bacitracin ointment to affected area twice a day, Benadryl 25 mg at bedtime p.r.n., Brilinta 90 mg twice a day, Brovana inhaled twice a day, Claritin 10 mg daily, vitamin D 50,000 units weekly, DuoNeb every 6 hours p.r.n., Ecotrin 81 mg daily, Flomax 0.4 mg daily, Lipitor 40 mg daily, metoprolol tartrate 25 mg twice a day, Lovaza 2 g twice a day, Lyrica 50 mg at bedtime, micafungin 100 mg daily, nasal saline every 2 hours p.r.n., Percocet 10/325 one tablet every 6 hours p.r.n., PhosLo with the meals, Protonix 40 mg daily, Pulmicort inhaled twice a day, Renagel with the meals, Singulair 10 mg daily, Synthroid 25 mcg daily, multivitamins daily, TriCor 145 mg daily, Zofran p.r.n. basis. LABORATORY DATA: Shows hemoglobin 9.3, hematocrit 28.9, WBC 8.5, platelet count is 41. INR 1.54 that was 2 days ago. Sodium 134, potassium 4.4, chloride 98, bicarbonate 26, BUN 25, creatinine 5.8, glucose 80, calcium is 8.2, AST 42, ALT 19, alkaline phosphatase is 63. Albumin is 2.5. Original blood culture has 1/2 fungus. IMPRESSION AND PLAN: Severe peripheral vascular disease, end up with nonhealing ulcer requiring partial amputation of the foot, presently nonhealing amputation surgical site, chronic obstructive lung disease, obstructive sleep apnea syndrome, coronary artery disease, pulmonary hypertension, hypertension, peripheral neuropathy, severe pulmonary hypertension, probably have a cardiac diastolic dysfunction. Spoke to dietitian. May benefit from soft diet because of the gastroparesis (?). Continue to encourage BiPAP. Keep head at 45 degrees. Bronchodilator, gastric prophylaxis. Has thrombocytopenia. We will send HIT antibodies. Follow up labs in the morning. Thank you and we will follow with you. Jarred Escalera MD : 10/22/2017 14:03:15
[2017-10-22] MEDS: Latanoprost 2.5 ml Opht Soln OU SCH (22:27)
[2017-10-23] MEDS: Levothyroxine 25 MCG TAB PO SCH (06:27)
[2017-10-23] MEDS: Pantoprazole 40 mg EC Tab PO SCH (06:27)
[2017-10-23] MEDS: Oxycodone/Acetaminophen 10/325 mg Tab PO PRN (07:00)
[2017-10-23] MEDS: Arformoterol 15 mcg/2 ml Inh Sol IH SCH ×2 (07:39→20:10)
[2017-10-23] MEDS: Budesonide 0.5 mg/2 ml Inhal Susp UD IH SCH ×2 (07:40→20:10)
--- NOTE | 2017-10-23 07:42 | CP.PCM.PN ---
Subjective - Date & Time of Evaluation Date of Evaluation: 10/23/17 Time of Evaluation: 06:10 - Subjective Subjective: Awake, no distress, denies chest pain, denies shortness of breath Reason for consultation and follow up: Cardiac pre-op evaluation and risk stratification for right foot below knee amputation surgery. history of coronary artery disease with multiple stents, PPM , ESRD on hemodialysis. Seen and examined by me and Dr. Erickson Objective - Vital Signs/Intake and Output Vital Signs (last 24 hours): Temp Pulse Resp BP Pulse Ox 98.6 F 65 20 113/65 99 10/22/17 13:59 10/22/17 18:52 10/22/17 13:59 10/22/17 18:52 10/22/17 13:59 Intake and Output: 10/23/17 10/23/17 06:59 18:59 Intake Total 840 Balance 840 - Medications Medications: Current Medications Albuterol/Ipratropium (Duoneb 3 Mg/0.5 Mg (3 Ml) Ud) 3 ml IH [id number] PRN PRN Reason: Shortness of Breath Last Admin: 10/21/17 07:29 Dose: 3 ml Arformoterol Tartrate (Brovana) 15 mcg IH [id number] [facility] Last Admin: 10/22/17 21:35 Dose: 15 mcg Aspirin (Ecotrin) 81 mg PO DAILY [facility] Last Admin: 10/22/17 09:33 Dose: 81 mg Atorvastatin Calcium (Lipitor) 40 mg PO DIN [facility] Last Admin: 10/21/17 18:04 Dose: 40 mg Bacitracin (Bacitracin) 1 ea TOP BID [facility] Last Admin: 10/22/17 09:39 Dose: 1 ea Budesonide (Pulmicort Respules) 0.5 mg IH [id number] [facility] Last Admin: 10/22/17 21:35 Dose: 0.5 mg Calcium Acetate (Phoslo) 1,334 mg PO WM [facility] Last Admin: 10/22/17 17:10 Dose: 1,334 mg Diphenhydramine HCl (Benadryl) 25 mg PO HS PRN PRN Reason: Insomnia Last Admin: 10/22/17 22:27 Dose: 25 mg Ergocalciferol (Drisdol 50,000 Intl Units Cap) 1 cap PO WED [facility] Last Admin: 10/18/17 12:32 Dose: 1 cap Fenofibrate (Tricor) 145 mg PO DAILY [facility] Last Admin: 10/22/17 09:33 Dose: 145 mg Hydralazine HCl (Apresoline) 25 mg PO BID [facility] Last Admin: 10/21/17 17:04 Dose: Not Given Micafungin Sodium 100 mg/ (Sodium Chloride) 100 mls @ 100 mls/hr IV DAILY [facility] PRN Reason: Protocol Stop: 10/26/17 10:01 Last Admin: 10/22/17 09:36 Dose: 100 mls/hr Insulin Human NPH (Humulin N) 20 units SC QPM [facility] Last Admin: 10/21/17 17:21 Dose: Not Given Insulin Human Regular (Humulin R High) 0 units SC ACHS [facility] PRN Reason: Protocol Last Admin: 10/22/17 22:14 Dose: Not Given Latanoprost (Xalatan Opht) 0 ml OU HS [facility] Last Admin: 10/22/17 22:27 Dose: 2.5 ml Levothyroxine Sodium (Synthroid) 25 mcg PO 0600 [facility] Last Admin: 10/23/17 06:27 Dose: 25 mcg Loratadine (Claritin) 10 mg PO HS [facility] Last Admin: 10/22/17 22:27 Dose: 10 mg Metoprolol Tartrate (Lopressor) 25 mg PO BID [facility] Last Admin: 10/22/17 18:52 Dose: Not Given Montelukast Sodium (Singulair) 10 mg PO HS [facility] Last Admin: 10/22/17 22:27 Dose: 10 mg Multivitamins (Thera Tab) 1 tab PO DAILY [facility] Last Admin: 10/22/17 09:33 Dose: 1 tab Salmeterol Xinafoate /Fluticaso [Advair Hfa 230-21] 1 puff IH BID [facility] Last Admin: 10/22/17 17:12 Dose: Not Given Fjino-8-Khde Ethyl Esters (Lovaza) 2 gm PO BID [facility] Last Admin: 10/22/17 09:00 Dose: 2 gm Ondansetron HCl (Zofran Inj) 4 mg IVP Q6H PRN PRN Reason: Nausea/Vomiting Last Admin: 10/23/17 06:48 Dose: 4 mg Oxycodone/Acetaminophen (Percocet 10/325 Mg Tab) 1 tab PO Q6H PRN PRN Reason: Pain, moderate (4-7) Last Admin: 10/23/17 07:00 Dose: 1 tab Pantoprazole Sodium (Protonix Ec Tab) 40 mg PO 0600 [facility] Last Admin: 10/23/17 06:27 Dose: 40 mg Pregabalin (Lyrica) 50 mg PO HS [facility] Last Admin: 10/22/17 22:27 Dose: 50 mg Sevelamer HCl (Renagel) 1,600 mg PO WM [facility] Last Admin: 10/22/17 17:12 Dose: 1,600 mg Sodium Chloride ([place] Nasal [place]) 0 ml NS Q2H PRN PRN Reason: Nasal congestion Tamsulosin HCl (Flomax) 0.4 mg PO HS [facility] Last Admin: 10/22/17 22:27 Dose: 0.4 mg Ticagrelor (Brilinta) 90 mg PO BID [facility] Last Admin: 10/19/17 17:13 Dose: 90 mg - Labs Labs: 10/22/17 07:30 10/22/17 07:30 PT 17.9 SECONDS (9.4-12.5) H 10/20/17 07:00 INR 1.54 10/20/17 07:00 APTT 32.5 Seconds (25.1-36.5) 10/20/17 07:00 - Constitutional Appears: No Acute Distress - Eye Exam Eye Exam: Normal appearance - Respiratory Exam Respiratory Exam: Decreased Breath Sounds, NORMAL BREATHING PATTERN Additional comments: nasal cannula - Cardiovascular Exam Cardiovascular Exam: +S1, +S2 Additional comments: PPM - GI/Abdominal Exam GI & Abdominal Exam: Soft, Normal Bowel Sounds - Exam Additional comments: Hemodialysis 3 x a week - Extremities Exam Additional comments: right foot with dressing Left AV shunt positive bruit/thrill - Neurological Exam Neurological Exam: Alert, Awake, Oriented x3 - Psychiatric Exam Psychiatric exam: Normal Affect - Skin Skin Exam: Dry, Warm Assessment and Plan - Assessment and Plan (Free Text) Assessment: A 52 year old make known to service who came in to the ER due to worsening non healing wound of the right foot. Patient was recently got discharged from [facility] which he underwent amputation of right foot transmetatarsal, stablized and transferred to [facility]. History of coronary artery disease with multiple stents, NSTEMI, ESRD on hemodialysis, peripheral arterial disease, insulin dependent diabetes mellitus, diabetic neuropathy, diabetic retinopathy,PPM for sinus junctional rhythm symptomatic.subdural hematoma post fall, resistant to Plavix, on Brilinta and Aspirin. Plan: For right below knee amputation on Monday LASHAWN no vegetations Hold Brilinta and Aspirin Heart rate and blood pressure controlled Cleared for surgery with high risk Low platelet count, consider transfusing before surgery Hemoglobin stable On hemodialysis Continue current treatment Continue current medications On IV antibiotics per ID Will follow closely postoperatively Plan and treatment discussed with Dr. Erickson
[2017-10-23 07:49] LABS: BASO # 0.03 K/mm3 (0.0-2.0); BASO % 0.3 % (0.0-3.0); EOS # 0.4 (0.0-0.7); EOS % 4.1 % (1.5-5.0); GRAN # 6.22 (1.4-6.5); GRAN % 70.6 % (50.0-68.0); HEMOGLOBIN 9.3 g/dL (14.0-18.0); LYMPH # 1.3 (1.2-3.4); LYMPH % 14.6 % (22.0-35.0); MEAN CELL VOLUME 91.7 fl (80.0-105.0); MEAN CORPUSCULAR HEMOGLOBIN 29.5 pg (25.0-35.0); MEAN CORPUSCULAR HGB CONC 32.2 g/dl (31.0-37.0); MEAN PLATELET VOLUME 11.7 fl (7.0-11.0); MONO # 0.9 (0.1-0.6); MONO % 10.4 % (1.0-6.0); RBC 3.15 10^6/uL (3.5-6.1); WHITE BLOOD COUNT 8.8 10^3/ul (4.5-11.0)
[2017-10-23] MEDS: Insulin Reg-HIGH-Coverage SC SCH ×4 (07:55→23:21)
[2017-10-23 08:00] LABS: PLATELET COUNT 38 10^3/uL (120.0-450.0)
[2017-10-23] MEDS: Bacitracin 500 Units/gm Oint Foilpak UD TOP SCH ×2 (08:02→17:10)
[2017-10-23 08:11] LABS: ALB/GLOB RATIO 0.6 (1.1-1.8); ALBUMIN 2.5 g/dL (3.0-4.8); CALCIUM 8.3 mg/dL (8.4-10.5)
--- NOTE | 2017-10-23 09:17 | PN ---
Copied To: Gallo Potter MD Attending MD: Gallo Potter MD DATE: 10/21/2017 SUBJECTIVE: The patient has no complaints of any chest pain. No shortness of breath or headaches. He states he had a difficult time sleeping last night. He would like to get his surgery done earlier rather than later. PHYSICAL EXAMINATION: VITAL SIGNS: Temperature is 98.4, pulse is 78, blood pressure is 123/52, respirations 20. GENERAL: The patient is lying in bed, flat, comfortable. HEENT: No oral lesion. Anicteric sclerae. Moist mucosa. NECK: No JVD, adenopathy, or thyromegaly. CARDIOVASCULAR: S1 and S2, regular. No murmurs, rubs, or gallops. LUNGS: Clear to auscultation bilaterally. No wheeze, rales, or rhonchi. ABDOMEN: Bowel sounds are positive, soft, nontender and nondistended. EXTREMITIES: No cyanosis, clubbing or edema. LABORATORY DATA: White count of 4.9, hemoglobin 8.8, platelet count is 40. Creatinine is 4.4. ASSESSMENT: 1. Fungemia. 2. End-stage renal disease, on hemodialysis. 3. Right transmetatarsal amputation gangrene/wound. 4. Coronary artery disease with stent in May 2017. 5. Hypertension. 6. Secondary hyperparathyroidism. 7. Hypothyroidism. 8. Pulmonary hypertension. 9. Anemia, chronic, secondary to chronic kidney disease. 10. Diabetic retinopathy. 11. Diabetic nephropathy. 12. Thrombocytopenia, new-onset. 13. Diabetes type 2. 14. Peripheral neuropathy. PLAN: The patient is awaiting for surgery. He is scheduled for Monday. The patient had an echo done yesterday that did not show vegetation. The patient had Ophthalmology evaluation, which showed a normal eye exam. The patient is currently on day #3 out of 14 of micafungin. The patient is on bacitracin, is on Brilinta for his coronary artery disease with stent. The patient is on loratadine. He is going to continue with Flomax for his BPH. The patient is on aspirin daily for his coronary artery disease. He is going to continue with Lipitor for dyslipidemia. The patient is on Lyrica for his neuropathy. He is going to continue with Percocet as needed. He is on PhosLo for his secondary hyperparathyroidism. The patient is also on Renagel. He is going to continue with Synthroid for hypothyroidism. The patient is thrombocytopenic. He does have a history of thrombocytopenia. He was on heparin, but this was discontinued. aGllo Potter MD
--- NOTE | 2017-10-23 09:19 | PN ---
Copied To: Jarred Escalera MD Attending MD: Jarred Escalera MD DATE: 10/21/2017 PULMONARY PROGRESS NOTE REFERRING PHYSICIAN: Gallo Potter MD. SUBJECTIVE: The patient is out of bed to reclining chair, has elevated lower extremity. Night was unremarkable, was told on transesophageal echo there was no vegetation. No nausea, no vomiting, no diarrhea. Still have a right foot pain. OBJECTIVE: GENERAL: In no acute distress. VITAL SIGNS: Temperature is 98, heart rate 78, respiratory rate is 20, blood pressure 123/52, pulse ox 100% on room air. HEENT: Moist mucous membrane. Crowded airway. Mallampati score is 4. NECK: Supple. No JVD. LUNGS: Have fair airflow with few rhonchi. HEART: S1 and S2. ABDOMEN: Soft, nontender, no organomegaly. EXTREMITIES: Right foot has a dressing. NEUROLOGIC: Awake, alert, follows simple command. MEDICATIONS: He is on hydralazine 25 mg twice a day, bacitracin ointment to affected area twice a day, Benadryl 25 mg at bedtime p.r.n., Brilinta 90 mg twice a day, Brovana inhaled twice a day, Claritin 10 mg daily, vitamin D 50,000 units weekly, DuoNeb every 6 hours p.r.n., Ecotrin 81 mg daily, Flomax 0.4 mg at bedtime, heparin 5000 units subcu every 12 hours, insulin coverage, Lipitor 40 mg daily, metoprolol tartrate 25 mg twice a day, Lovaza 2 mg twice a day, Lyrica 50 mg at bedtime, micafungin 100 mg daily, Percocet 10/325 1 tablet every 4 hours p.r.n., PhosLo with the meals, Protonix 40 mg daily, Pulmicort inhaled twice a day, Renagel with the meals, Singulair 10 mg daily, Synthroid 25 mcg daily, multivitamins daily, Tricor 145 mg daily. LABORATORY DATA: Shows hemoglobin 8.8, hematocrit 27.7, WBC 4.9, platelet is 40. INR 1.54. Sodium 133, potassium 4.1, chloride 96, bicarbonate 30, BUN 32, creatinine 4.4, glucose 100, calcium is 7.9, AST 39, ALT 17, alk phos is 58. Albumin is 2.3. IMPRESSION AND PLAN: Severe peripheral vascular disease, ending up with partial amputation of the right foot, presently with a nonhealing amputation site, also had a fungemia, chronic obstructive lung disease, obstructive sleep apnea syndrome, coronary artery disease, diabetes, hypertension, noncompliant with the continuous positive airway pressure/bilevel positive airway pressure. Pulmonary point of view, doing okay. Continue bronchodilator. Keep head at 45 degrees, status post transesophageal echo which suggested there is no vegetation. No changes in the aortic wall comparative to previous studies, has severe tricuspid regurgitation, right ventricular systolic pressure is 98. His left ventricular ejection fraction is 55-60%. We will continue to encourage the patient to use continuous positive airway pressure/bilevel positive airway pressure. If sedated, need close cardiopulmonary monitoring, especially, with sleep apnea and with pulmonary hypertension. May need close hemodynamic monitoring if sedated because of severe pulmonary hypertension. Thank you and we will follow with you. Jarred Escalera MD
[2017-10-23] MEDS: SALMETEROL XINAFOATE IH SCH ×2 (10:04→17:13)
[2017-10-23] MEDS: FLUTICASO IH SCH ×2 (10:04→17:13)
[2017-10-23] MEDS: Omega-3-Acid Ethyl Esters 1 GM Cap PO SCH ×3 (10:04→17:12)
[2017-10-23] MEDS ORDERED: Argatroban 250 MG in Dextrose 5% In Water 250 ML IV SCH (11:30)
--- NOTE | 2017-10-23 12:29 | CP.PCM.PN ---
Subjective - Date & Time of Evaluation Date of Evaluation: 10/23/17 Time of Evaluation: 06:55 - Subjective Subjective: General Surgery Progress Note for Dr. Urrutia Patient was seen and examined this AM at bedside. No acute events overnight. He denies any chest pain or SOB, or any new symptoms. He has no complaints at this time. Patient will be getting dialysis today. He will be going to OR tomorrow for R BKA. Objective - Vital Signs/Intake and Output Vital Signs (last 24 hours): Temp Pulse Resp BP Pulse Ox 97.3 F L 87 20 140/65 100 10/23/17 06:00 10/23/17 06:00 10/23/17 06:00 10/23/17 06:00 10/23/17 06:00 Intake and Output: 10/23/17 10/23/17 06:59 18:59 Intake Total 840 Balance 840 - Medications Medications: Current Medications Albuterol/Ipratropium (Duoneb 3 Mg/0.5 Mg (3 Ml) Ud) 3 ml IH [id number] PRN PRN Reason: Shortness of Breath Last Admin: 10/21/17 07:29 Dose: 3 ml Arformoterol Tartrate (Brovana) 15 mcg IH [id number] [facility] Last Admin: 10/23/17 07:39 Dose: Not Given Aspirin (Ecotrin) 81 mg PO DAILY [facility] Last Admin: 10/22/17 09:33 Dose: 81 mg Atorvastatin Calcium (Lipitor) 40 mg PO DIN [facility] Last Admin: 10/21/17 18:04 Dose: 40 mg Bacitracin (Bacitracin) 1 ea TOP BID [facility] Last Admin: 10/22/17 09:39 Dose: 1 ea Budesonide (Pulmicort Respules) 0.5 mg IH [id number] [facility] Last Admin: 10/23/17 07:40 Dose: Not Given Calcium Acetate (Phoslo) 1,334 mg PO WM [facility] Last Admin: 10/22/17 17:10 Dose: 1,334 mg Diphenhydramine HCl (Benadryl) 25 mg PO HS PRN PRN Reason: Insomnia Last Admin: 10/22/17 22:27 Dose: 25 mg Ergocalciferol (Drisdol 50,000 Intl Units Cap) 1 cap PO WED [facility] Last Admin: 10/18/17 12:32 Dose: 1 cap Fenofibrate (Tricor) 145 mg PO DAILY [facility] Last Admin: 10/22/17 09:33 Dose: 145 mg Hydralazine HCl (Apresoline) 25 mg PO BID [facility] Last Admin: 10/21/17 17:04 Dose: Not Given Micafungin Sodium 100 mg/ (Sodium Chloride) 100 mls @ 100 mls/hr IV DAILY [facility] PRN Reason: Protocol Stop: 10/26/17 10:01 Last Admin: 10/22/17 09:36 Dose: 100 mls/hr Argatroban 250 mg/ Dextrose 252.5 mls @ 10.5 mls/hr IV .Q24H [facility]; 2 MCG/KG/MIN PRN Reason: Protocol Insulin Human NPH (Humulin N) 20 units SC QPM [facility] Last Admin: 10/21/17 17:21 Dose: Not Given Insulin Human Regular (Humulin R High) 0 units SC ACHS [facility] PRN Reason: Protocol Last Admin: 10/23/17 07:55 Dose: Not Given Latanoprost (Xalatan Opht) 0 ml OU HS [facility] Last Admin: 10/22/17 22:27 Dose: 2.5 ml Levothyroxine Sodium (Synthroid) 25 mcg PO 0600 [facility] Last Admin: 10/23/17 06:27 Dose: 25 mcg Loratadine (Claritin) 10 mg PO HS [facility] Last Admin: 10/22/17 22:27 Dose: 10 mg Metoprolol Tartrate (Lopressor) 25 mg PO BID [facility] Last Admin: 10/22/17 18:52 Dose: Not Given Montelukast Sodium (Singulair) 10 mg PO HS [facility] Last Admin: 10/22/17 22:27 Dose: 10 mg Multivitamins (Thera Tab) 1 tab PO DAILY [facility] Last Admin: 10/22/17 09:33 Dose: 1 tab Salmeterol Xinafoate /Fluticaso [Advair Hfa 230-21] 1 puff IH BID [facility] Last Admin: 10/22/17 17:12 Dose: Not Given Ajdqb-[id number] Ethyl Esters (Lovaza) 2 gm PO BID [facility] Last Admin: 10/22/17 09:00 Dose: 2 gm Ondansetron HCl (Zofran Inj) 4 mg IVP Q6H PRN PRN Reason: Nausea/Vomiting Last Admin: 10/23/17 06:48 Dose: 4 mg Pantoprazole Sodium (Protonix Ec Tab) 40 mg PO 0600 [facility] Last Admin: 10/23/17 06:27 Dose: 40 mg Pregabalin (Lyrica) 50 mg PO HS [facility] Last Admin: 10/22/17 22:27 Dose: 50 mg Sevelamer HCl (Renagel) 1,600 mg PO WM [facility] Last Admin: 10/22/17 17:12 Dose: 1,600 mg Sodium Chloride ([place] Nasal [place]) 0 ml NS Q2H PRN PRN Reason: Nasal congestion Tamsulosin HCl (Flomax) 0.4 mg PO HS [facility] Last Admin: 10/22/17 22:27 Dose: 0.4 mg Ticagrelor (Brilinta) 90 mg PO BID [facility] Last Admin: 10/19/17 17:13 Dose: 90 mg - Labs Labs: 10/23/17 06:45 10/23/17 06:45 PT 17.9 SECONDS (9.4-12.5) H 10/20/17 07:00 INR 1.54 10/20/17 07:00 APTT 32.5 Seconds (25.1-36.5) 10/20/17 07:00 - Additional Findings Additional findings: - Constitutional Appears: Non-toxic, No Acute Distress - Head Exam Head Exam: ATRAUMATIC, NORMOCEPHALIC - Eye Exam Eye Exam: EOMI - ENT Exam ENT Exam: Mucous Membranes Moist - Respiratory Exam Respiratory Exam: NORMAL BREATHING PATTERN - Cardiovascular Exam Cardiovascular Exam: +S1, +S2 - GI/Abdominal Exam GI & Abdominal Exam: Soft. 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 Renan Allen PGY2
[2017-10-23] MEDS: Micafungin 100 MG in Sodium Chloride 0.9% 100 ML IV SCH (13:09)
--- NOTE | 2017-10-23 13:25 | PN ---
Copied To: Jarred Escalera MD Attending MD: Jarred Escalera MD DATE: 10/23/2017 PULMONARY PROGRESS NOTE REFERRING PHYSICIAN: Gallo Potter MD. SUBJECTIVE: The patient is examined and seen in the dialysis chair. Night was unremarkable. On and off used BiPAP. No headache. No rhinitis. No nausea. No vomiting. No diarrhea. No abdominal pain. Has some right foot pain. OBJECTIVE: GENERAL: In no acute distress. VITAL SIGNS: Temperature is 98, heart rate is 87, respiratory rate is 20, blood pressure 140/60, pulse ox 100% on room air. HEENT: Moist mucous membrane. Crowded airway. NECK: Supple. No JVD. LUNGS: Have a fair airflow with rhonchi. HEART: S1 and S2. ABDOMEN: Soft and nontender. No organomegaly. EXTREMITIES: No edema of the left leg. Right foot is with dressing. NEUROLOGICAL: Awake and alert. Follows simple command. MEDICATIONS: He is on hydralazine 25 mg twice a day; getting argatroban 250 mg in dextrose, being titrated with the protocol; bacitracin ointment to affected area; Benadryl 25 mg at bedtime p.r.n.; Brilinta 90 mg twice a day; Brovana inhaled twice a day; Claritin 10 mg daily; DuoNeb every 6 hours p.r.n.; Ecotrin 81 mg daily; Flomax 0.4 mg daily; insulin coverage; Lipitor 40 mg daily; metoprolol tartrate 25 mg twice a day; Lovaza 2 g IV twice a day; Lyrica 50 mg daily; micafungin 100 mg daily; nasal saline p.r.n. basis; PhosLo with the meal; Protonix 40 mg daily; budesonide inhaled twice a day; Renagel with the meals; Singulair 10 mg daily; Synthroid 25 mcg daily; multivitamins daily; TriCor 145 mg daily; Zofran 4 mg every 6 hours p.r.n. LABORATORY DATA: Shows hemoglobin 9.3, hematocrit 28.9, WBC 8.8, platelet Is 50,000 manually. Sodium 135, potassium 4.8, chloride 98, bicarbonate 28, BUN is 56, creatinine 7.4, calcium is 8.3, AST 45, ALT 18, alk phos is 67, albumin is 2.5. IMPRESSION AND PLAN: Severe peripheral vascular disease, ended up with nonhealing ulcer on the right foot requiring partial amputation, now has a nonhealing surgical site, brought back for possible right lower extremity amputation; chronic obstructive lung disease; obstructive sleep apnea syndrome; coronary artery disease; pulmonary hypertension; hypertension; peripheral neuropathy; severe pulmonary hypertension; probably has a cardiac diastolic dysfunction; thrombocytopenia. HIT antibody had been sent. The patient is being treated with argatroban started today. Pulmonary point of view, we will keep head at 45 degrees, encourage bilevel positive airway pressure use. If sedated, needs close cardiopulmonary monitoring especially with sleep apnea and pulmonary hypertension. Continue antibodies as per Infectious Diseases. Being followed by Hematology. Follow up labs in the morning. Thank you and we will follow with you. Jarred Escalera MD
[2017-10-23] MEDS: Albuterol-Ipratrop 3 mg / 0.5 (3 ml) UD IH PRN (13:35)
--- NOTE | 2017-10-23 13:54 | CP.PCM.PN ---
Subjective - Date & Time of Evaluation Date of Evaluation: 10/23/17 Time of Evaluation: 07:00 - Subjective Subjective: PGY-[address] Potter 3 soft pasty BM, unchanged from admission. Cdiff neg. color dark. no recent Fe supplementation Decreased appetite Objective - Vital Signs/Intake and Output Vital Signs (last 24 hours): Temp Pulse Resp BP Pulse Ox 97.3 F L 87 20 140/65 100 10/23/17 06:00 10/23/17 06:00 10/23/17 06:00 10/23/17 06:00 10/23/17 06:00 Intake and Output: 10/23/17 10/23/17 06:59 18:59 Intake Total 840 Balance 840 - Medications Medications: Current Medications Albuterol/Ipratropium (Duoneb 3 Mg/0.5 Mg (3 Ml) Ud) 3 ml IH [id number] PRN PRN Reason: Shortness of Breath Last Admin: 10/23/17 13:35 Dose: 3 ml Arformoterol Tartrate (Brovana) 15 mcg IH [id number] [facility] Last Admin: 10/23/17 07:39 Dose: Not Given Aspirin (Ecotrin) 81 mg PO DAILY [facility] Last Admin: 10/22/17 09:33 Dose: 81 mg Atorvastatin Calcium (Lipitor) 40 mg PO DIN [facility] Last Admin: 10/21/17 18:04 Dose: 40 mg Bacitracin (Bacitracin) 1 ea TOP BID [facility] Last Admin: 10/22/17 09:39 Dose: 1 ea Budesonide (Pulmicort Respules) 0.5 mg IH [id number] [facility] Last Admin: 10/23/17 07:40 Dose: Not Given Calcium Acetate (Phoslo) 1,334 mg PO WM [facility] Last Admin: 10/23/17 13:08 Dose: 1,334 mg Diphenhydramine HCl (Benadryl) 25 mg PO HS PRN PRN Reason: Insomnia Last Admin: 10/22/17 22:27 Dose: 25 mg Ergocalciferol (Drisdol 50,000 Intl Units Cap) 1 cap PO WED [facility] Last Admin: 10/18/17 12:32 Dose: 1 cap Fenofibrate (Tricor) 145 mg PO DAILY [facility] Last Admin: 10/22/17 09:33 Dose: 145 mg Hydralazine HCl (Apresoline) 25 mg PO BID [facility] Last Admin: 10/21/17 17:04 Dose: Not Given Micafungin Sodium 100 mg/ (Sodium Chloride) 100 mls @ 100 mls/hr IV DAILY [facility] PRN Reason: Protocol Stop: 10/26/17 10:01 Last Admin: 10/23/17 13:09 Dose: 100 mls/hr Argatroban 250 mg/ Dextrose 252.5 mls @ 10.5 mls/hr IV .Q24H [facility]; 2 MCG/KG/MIN PRN Reason: Protocol Insulin Human NPH (Humulin N) 20 units SC QPM [facility] Last Admin: 10/21/17 17:21 Dose: Not Given Insulin Human Regular (Humulin R High) 0 units SC ACHS [facility] PRN Reason: Protocol Last Admin: 10/23/17 07:55 Dose: Not Given Latanoprost (Xalatan Opht) 0 ml OU HS [facility] Last Admin: 10/22/17 22:27 Dose: 2.5 ml Levothyroxine Sodium (Synthroid) 25 mcg PO 0600 [facility] Last Admin: 10/23/17 06:27 Dose: 25 mcg Loratadine (Claritin) 10 mg PO [facility] Last Admin: 10/22/17 22:27 Dose: 10 mg Metoprolol Tartrate (Lopressor) 25 mg PO BID [facility] Last Admin: 10/22/17 18:52 Dose: Not Given Montelukast Sodium (Singulair) 10 mg PO [facility] Last Admin: 10/22/17 22:27 Dose: 10 mg Multivitamins (Thera Tab) 1 tab PO DAILY [facility] Last Admin: 10/22/17 09:33 Dose: 1 tab Salmeterol Xinafoate /Fluticaso [Advair Hfa 230-21] 1 puff IH BID [facility] Last Admin: 10/22/17 17:12 Dose: Not Given [id number] Ethyl Esters (Lovaza) 2 gm PO BID [facility] Last Admin: 10/23/17 13:09 Dose: 2 gm Ondansetron HCl (Zofran Inj) 4 mg IVP Q6H PRN PRN Reason: Nausea/Vomiting Last Admin: 10/23/17 06:48 Dose: 4 mg Pregabalin (Lyrica) 50 mg PO [facility] Last Admin: 10/22/17 22:27 Dose: 50 mg Sevelamer HCl (Renagel) 1,600 mg PO WM [facility] Last Admin: 10/23/17 13:06 Dose: 1,600 mg Sodium Chloride ([place] Nasal [place]) 0 ml NS Q2H PRN PRN Reason: Nasal congestion Sucralfate (Carafate Oral Susp) 1 gm PO 0600,1600 [facility] Tamsulosin HCl (Flomax) 0.4 mg PO HS [facility] Last Admin: 10/22/17 22:27 Dose: 0.4 mg Ticagrelor (Brilinta) 90 mg PO BID [facility] Last Admin: 10/19/17 17:13 Dose: 90 mg - Labs Labs: 10/23/17 06:45 10/23/17 06:45 PT 17.9 SECONDS (9.4-12.5) H 10/20/17 07:00 INR 1.54 10/20/17 07:00 APTT 32.5 Seconds (25.1-36.5) 10/20/17 07:00 - Constitutional Appears: No Acute Distress - Head Exam Head Exam: ATRAUMATIC, NORMAL INSPECTION, NORMOCEPHALIC - Eye Exam Eye Exam: EOMI, Normal appearance, PERRL. absent: Scleral icterus Pupil Exam: NORMAL ACCOMODATION - ENT Exam ENT Exam: Mucous Membranes Moist - Neck Exam Additional comments: supple - Respiratory Exam Respiratory Exam: Clear to Ausculation Bilateral. absent: Rales, Rhonchi, Wheezes - Cardiovascular Exam Cardiovascular Exam: REGULAR RHYTHM, +S1, +S2 - GI/Abdominal Exam GI & Abdominal Exam: Soft, Normal Bowel Sounds. absent: Tenderness - Extremities Exam Extremities Exam: absent: Calf Tenderness, Pedal Edema, Tenderness Additional comments: R stump dressing with mild serous strike through (+) frill L fistula - Neurological Exam Neurological Exam: Alert, Awake, Oriented x3 - Psychiatric Exam Psychiatric exam: Normal Affect, Normal Mood - Skin Skin Exam: Dry, Warm Assessment and Plan - Assessment and Plan (Free Text) Plan: Mr Berger, 52 M recently s/p transmetatarsal amputation of the right foot () due to wet gangrene to the right foot and bone exposure. He is on Dual antiplatelet for recent cardiac stent in May. His RLE stump is not healing, possibly because he is a vasculopath and he weight bear despite warning. Due to the non-healing wound due to poor perfusion, he was scheduled for R BKA. The surgery was delayed twice because he developed fungemia on zyvox, merem, micafungin. His platelet drops from 100k to 50K 1-week after admission, suspicious of HIT. Heparin SC was for DVT prophylaxis in the setting of ESRD, now heparin is stopped. 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 Stop protonix, merem, zyvox to r/o other medication etiology Fungemia (10/16), Had ruled out thrombi @ pacemaker lead. Had ruled out Opthalmitis. Anemia at 7.3 (baseline 8-9), Anemia of chronic disease and due to ESRD, asymptomatic, s/p 3u PRBC. Goal to reach Hb 10 for surgery. CAD s/p 2 YORDY in LAD (06/13/17) on dual-antiplatelet, CHF, pacemaker (metronic) HTN/PVD RENATA, cannot tolerate CPAP; COPD; severe pulmonary HTN DM_2__, peripheral neuropathy Hx CVA with L residual weakness ESRD MWF due to HTN/DM, with Anemia, Hyperphosphatemia, Secondary Hyperparathyroidism Hypothyroidism Moxifloxacin and PCN allergy P: Argatroban gtt for increased thrombotic risk due to possible HIT. f/u heparin ab and Serotonin release assy. ICU management due to aptt q2h. ASA and brilinta was hold. For fungemia, mycafungin, day __6___. Stopped Merem & Linezolid, day __6__ for possible cause of low platelet; Repeat blood culture (10/19) negative. Echo showed EF 55. RVSP 49. Aortic cusp calcified cannot r/o veg. No sig changes to echo 1 month ago. LASHAWN no vegetation in pacemaker lead. Opthalmologist has r/o endopthalmitis. BKA was delayed for fungemia and HIT. As for non-healing ulcer, Percocet Q6 PRN ; Lyrica HS Lipitor 40, fenofibrate, lovaza 2gm bid Cardiology cleared. Pending ID and heme clearance for surgery High uriel-operative cardiac risk. For anemia, sp 3u RBC. goal Hb 10 for surgery. dark stool pending heme occult. For CAD, Continue metoprolol 50. ASA/Brilinta on hold For HTN, hydralazine 25 bid, For DM2, hold glipizide, reduce humulin N to 20u per last hospital insulin requirement, lispro-low sliding scale For chronic ESRD, HD MWF. Continue Phoslo, Vit D2, multivitamin, sevelamer For COPD/RENATA, HOB 45, Duoneb PRN, loratidine, CPAP PRN, montelikast, Advair. Cannot tolerate CPAP For Glu[place], bimatoprost For insomnia, benadryl HS prn For hypothyroidism, synthroid 25 Flomax for Bph Prophylaxis: carafate. on argatroban Consult: Renan Figueroa, Dre, Rich, Lali, Jensen Access: L AV fistula. R IV s/r/d/w Dr. Potter
--- NOTE | 2017-10-23 14:15 | CP.PCM.CON ---
<TrinoChilango - Last Filed: 10/23/17 14:10> History of Present Illness - History of Present Illness History of Present Illness: ICU consult note: Trino, PGY - 2, IM resident Reason for consult: Patient needs Dabigatran drip HPI: 52 Male pertinent medical history of severe CAD and PVD presented with wet gangrene to R foot with worsening wound resulting in wound filled with blood clots and bone exposure. Patient needs BKA. However, yesterday, patient's platelets were found to be decreased by 50%; Anti- HIT antibodies were sent and patient's anti-coagulation was stopped. ICU admission for Dabigatran drip. Review of Systems: 12 point ROS obtained and negative except as per HPI Surgical Hx: L eye cornea transplant, AV Fistula, Cholecystectomy Medical Hx: ESRD on HD, PAD, DM, CAD s/p stents, CHF, COPD, and TIA Allergies: Aspart, moxifloxacin, penicillin, regular insulin SocHx: +Rare alcohol; Denies tobacco, illiciits Home Meds: Reviewed, as per MAR Family Hx: DM, CVA, ESRD PMD: Dr. Potter Past Patient History - Infectious Disease Hx of Infectious Diseases: None - Tetanus Immunizations Tetanus Immunization: Up to Date - Past Medical History & Family History Past Medical History?: Yes - Past Social History Smoking Status: Never Smoked - CARDIAC Hx Cardiac Disorders: Yes (mi) Hx Congestive Heart Failure: Yes Hx Hypercholesterolemia: Yes Hx Hypertension: Yes Hx Pacemaker: Yes (medtronic) Hx Peripheral Edema: Yes (rle +1) Hx Peripheral Vascular Disease: Yes Other/Comment: carotid stenosis, vascular sx av shunt laura, angioplasty, circulatory problems, cellulitis - PULMONARY Hx Respiratory Disorders: Yes Hx Asthma: Yes Hx Bronchitis: Yes Hx Chronic Obstructive Pulmonary Disease (COPD): Yes Hx Pneumonia: Yes Hx Respiratory Tract Infection: Yes Hx Sleep Apnea: Yes (c pap) - NEUROLOGICAL Hx Neurological Disorder: Yes HX Cerebrovascular Accident: Yes (r side weakness) Hx Dizziness: Yes Hx Transient Ischemic Attacks (TIA): Yes Other/Comment: peripheral neuropathy, numbness, visual disturbances - HEENT Hx HEENT Problems: Yes (BILATERAL EYE WITH BLURRY VISION) Hx Cataracts: Yes (HAD SX 05/29/12, r with iol) Hx Epistaxis: Yes Other/Comment: left eye cornea transplant,RENAL RETINOPATHY, glasses, blurred vision - RENAL Date of Last Dialysis Treatment: 10/13/17 - ENDOCRINE/METABOLIC Hx Endocrine Disorders: Yes Hx Diabetes Mellitus Type 1: Yes Hx Diabetes Mellitus Type 2: Yes Hx Hypothyroidism: Yes - HEMATOLOGICAL/ONCOLOGICAL Hx Blood Transfusions: Yes Hx Blood Transfusion Reaction: No - INTEGUMENTARY Hx Dermatological Problems: Yes Other/Comment: generalized multiple skin discolorations and dry wounds over body , rle r ft dressing dry and intact all toes amputated chronic wound ulceration and foul odor heel ulceration gangrrene and bone exposed, rle skin discolorations +1 edema and tightness, inner right ankle1.5cm x 0.5cm deep red dry wound surrounded by pink red skin throbbing pain, 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,left hand 3rd finger 0/7cm x 0.5cm round dry brown wound, dry brown wound 1.5cm x 1.5cm to ball of left foot not opened - MUSCULOSKELETAL/RHEUMATOLOGICAL Hx Falls: No - GASTROINTESTINAL Hx Gastrointestinal Disorders: Yes (cdif 01/14/17) Hx Gall Bladder Disease: Yes (CHOLECYSTECTOMY) Hx Gastroesophageal Reflux: Yes Hx Liver Failure: Yes (CKD) Hx Pancreatitis: Yes Other/Comment: colon polyps, poor appetite - GENITOURINARY/GYNECOLOGICAL Hx Genitourinary Disorders: Yes (esrd on HD MWF) Hx Hematuria: Yes Hx Prostate Problems: Yes (bph) Hx Urinary Tract Infection: Yes - PSYCHIATRIC Hx Substance Use: No - SURGICAL HISTORY Hx Surgeries: Yes - ANESTHESIA Hx Anesthesia Reactions: No Hx Malignant Hyperthermia: No Meds Allergies/Adverse Reactions: Allergies Allergy/AdvReac Type Severity Reaction Status Date / Time insulin aspart [From Novolog] Allergy Intermediate RASH Verified 10/02/17 19:52 moxifloxacin Allergy Intermediate RASH Verified 10/02/17 19:52 Penicillins Allergy Intermediate RASH Verified 10/02/17 19:52 insulin regular Allergy ITCHING Verified 10/02/17 19:52 [From Novolin R Regular U-100 Insuln] - Medications Medications: Current Medications Albuterol/Ipratropium (Duoneb 3 Mg/0.5 Mg (3 Ml) Ud) 3 ml IH [id number] PRN PRN Reason: Shortness of Breath Last Admin: 10/23/17 13:35 Dose: 3 ml Arformoterol Tartrate (Brovana) 15 mcg IH [id number] [facility] Last Admin: 10/23/17 07:39 Dose: Not Given Aspirin (Ecotrin) 81 mg PO DAILY [facility] Last Admin: 10/22/17 09:33 Dose: 81 mg Atorvastatin Calcium (Lipitor) 40 mg PO DIN [facility] Last Admin: 10/21/17 18:04 Dose: 40 mg Bacitracin (Bacitracin) 1 ea TOP BID [facility] Last Admin: 10/23/17 08:02 Dose: Not Given Budesonide (Pulmicort Respules) 0.5 mg IH [id number] [facility] Last Admin: 10/23/17 07:40 Dose: Not Given Calcium Acetate (Phoslo) 1,334 mg PO WM [facility] Last Admin: 10/23/17 13:08 Dose: 1,334 mg Diphenhydramine HCl (Benadryl) 25 mg PO HS PRN PRN Reason: Insomnia Last Admin: 10/22/17 22:27 Dose: 25 mg Ergocalciferol (Drisdol 50,000 Intl Units Cap) 1 cap PO WED [facility] Last Admin: 10/18/17 12:32 Dose: 1 cap Fenofibrate (Tricor) 145 mg PO DAILY [facility] Last Admin: 10/22/17 09:33 Dose: 145 mg Hydralazine HCl (Apresoline) 25 mg PO BID [facility] Last Admin: 10/21/17 17:04 Dose: Not Given Micafungin Sodium 100 mg/ (Sodium Chloride) 100 mls @ 100 mls/hr IV DAILY [facility] PRN Reason: Protocol Stop: 10/26/17 10:01 Last Admin: 10/23/17 13:09 Dose: 100 mls/hr Argatroban 250 mg/ Dextrose 252.5 mls @ 10.5 mls/hr IV .Q24H [facility]; 2 MCG/KG/MIN PRN Reason: Protocol Insulin Human NPH (Humulin N) 20 units SC QPM [facility] Last Admin: 10/21/17 17:21 Dose: Not Given Insulin Human Regular (Humulin R High) 0 units SC ACHS [facility] PRN Reason: Protocol Last Admin: 10/23/17 13:10 Dose: Not Given Latanoprost (Xalatan Opht) 0 ml OU HS [facility] Last Admin: 10/22/17 22:27 Dose: 2.5 ml Levothyroxine Sodium (Synthroid) 25 mcg PO 0600 [facility] Last Admin: 10/23/17 06:27 Dose: 25 mcg Loratadine (Claritin) 10 mg PO [facility] Last Admin: 10/22/17 22:27 Dose: 10 mg Metoprolol Tartrate (Lopressor) 25 mg PO BID [facility] Last Admin: 10/23/17 10:04 Dose: Not Given Montelukast Sodium (Singulair) 10 mg PO [facility] Last Admin: 10/22/17 22:27 Dose: 10 mg Multivitamins (Thera Tab) 1 tab PO DAILY [facility] Last Admin: 10/22/17 09:33 Dose: 1 tab Salmeterol Xinafoate /Fluticaso [Advair Hfa 230-21] 1 puff IH BID [facility] Last Admin: 10/23/17 10:04 Dose: Not Given Eiyir-5-Jvvw Ethyl Esters (Lovaza) 2 gm PO BID [facility] Last Admin: 10/23/17 13:09 Dose: 2 gm Ondansetron HCl (Zofran Inj) 4 mg IVP Q6H PRN PRN Reason: Nausea/Vomiting Last Admin: 10/23/17 06:48 Dose: 4 mg Pregabalin (Lyrica) 50 mg PO [facility] Last Admin: 10/22/17 22:27 Dose: 50 mg Sevelamer HCl (Renagel) 1,600 mg PO [facility] Last Admin: 10/23/17 13:06 Dose: 1,600 mg Sodium Chloride ([place] Nasal [place]) 0 ml NS Q2H PRN PRN Reason: Nasal congestion Sucralfate (Carafate Oral Susp) 1 gm PO 0600,1600 [facility] Tamsulosin HCl (Flomax) 0.4 mg PO [facility] Last Admin: 10/22/17 22:27 Dose: 0.4 mg Ticagrelor (Brilinta) 90 mg PO BID [facility] Last Admin: 10/19/17 17:13 Dose: 90 mg Physical Exam - Constitutional Appears: Well - Head Exam Head Exam: ATRAUMATIC, NORMAL INSPECTION, NORMOCEPHALIC - Eye Exam Eye Exam: EOMI, Normal appearance, PERRL Pupil Exam: NORMAL ACCOMODATION, PERRL - ENT Exam ENT Exam: Mucous Membranes Moist, Normal Exam - Neck Exam Neck exam: Positive for: Normal Inspection - Respiratory Exam Respiratory Exam: Clear to Auscultation Bilateral, NORMAL BREATHING PATTERN - Cardiovascular Exam Cardiovascular Exam: REGULAR RHYTHM - GI/Abdominal Exam GI & Abdominal Exam: Normal Bowel Sounds, Soft. absent: Tenderness - Extremities Exam Extremities exam: Positive for: normal inspection - Back Exam Back exam: NORMAL INSPECTION - Neurological Exam Neurological exam: Alert, CN II-XII Intact, Normal Gait, Oriented x3, Reflexes Normal - Psychiatric Exam Psychiatric exam: Normal Affect, Normal Mood - Skin Skin Exam: Dry, Intact, Normal Color, Warm - Additional Findings Additional findings: R foot dressing d/c/i Results - Vital Signs Recent Vital Signs: Last Vital Signs Temp 98.3 F 10/23/17 13:59 Pulse 104 H 10/23/17 13:59 Resp 20 10/23/17 13:59 BP 114/61 10/23/17 13:59 Pulse Ox 98 10/23/17 13:59 - Labs Result Diagrams: 10/23/17 06:45 10/23/17 06:45 Labs: Laboratory Results - last 24 hr 10/21/17 10/21/17 10/21/17 21:01 21:52 22:27 WBC RBC Hgb Hct MCV MCH MCHC RDW Plt Count Manual Plt Count MPV Gran % Lymph % (Auto) [place] % (Auto) Eos % (Auto) Baso % (Auto) Gran # Lymph # (Auto) [place] # (Auto) Eos # (Auto) Baso # (Auto) Sodium Potassium Chloride Carbon Dioxide Anion Gap BUN Creatinine Est GFR ( Amer) Est GFR (Non-Af Amer) POC Glucose (mg/dL) 48 L 57 L 64 L Random Glucose Calcium Total Bilirubin AST ALT Alkaline Phosphatase Total Protein Albumin Globulin Albumin/Globulin Ratio 10/22/17 10/22/17 10/22/17 00:36 05:19 11:20 WBC RBC Hgb Hct MCV MCH MCHC RDW Plt Count Manual Plt Count MPV Gran % Lymph % (Auto) [place] % (Auto) Eos % (Auto) Baso % (Auto) Gran # Lymph # (Auto) [place] # (Auto) Eos # (Auto) Baso # (Auto) Sodium Potassium Chloride Carbon Dioxide Anion Gap BUN Creatinine Est GFR ( Amer) Est GFR (Non-Af Amer) POC Glucose (mg/dL) 40 L 75 86 Random Glucose Calcium Total Bilirubin AST ALT Alkaline Phosphatase Total Protein Albumin Globulin Albumin/Globulin Ratio 10/22/17 10/22/17 10/23/17 16:23 21:44 01:50 WBC RBC Hgb Hct MCV MCH MCHC RDW Plt Count Manual Plt Count MPV Gran % Lymph % (Auto) [place] % (Auto) Eos % (Auto) Baso % (Auto) Gran # Lymph # (Auto) [place] # (Auto) Eos # (Auto) Baso # (Auto) Sodium Potassium Chloride Carbon Dioxide Anion Gap BUN Creatinine Est GFR ( Amer) Est GFR (Non-Af Amer) POC Glucose (mg/dL) 156 H 123 H 132 H Random Glucose Calcium Total Bilirubin AST ALT Alkaline Phosphatase Total Protein Albumin Globulin Albumin/Globulin Ratio 10/23/17 10/23/17 10/23/17 06:37 06:45 06:45 WBC 8.8 RBC 3.15 L Hgb 9.3 L Hct 28.9 L MCV 91.7 MCH 29.5 MCHC 32.2 RDW 17.0 H Plt Count 38 L* Manual Plt Count MPV 11.7 H Gran % 70.6 H Lymph % (Auto) 14.6 L [place] % (Auto) 10.4 H Eos % (Auto) 4.1 Baso % (Auto) 0.3 Gran # 6.22 Lymph # (Auto) 1.3 [place] # (Auto) 0.9 H Eos # (Auto) 0.4 Baso # (Auto) 0.03 Sodium 135 Potassium 4.8 Chloride 98 Carbon Dioxide 28 Anion Gap 14 BUN 56 H Creatinine 7.4 H* D Est GFR ( Amer) 9 Est GFR (Non-Af Amer) 8 POC Glucose (mg/dL) 130 H Random Glucose 104 Calcium 8.3 L Total Bilirubin 1.0 AST 45 ALT 18 Alkaline Phosphatase 67 Total Protein 6.4 Albumin 2.5 L Globulin 3.9 Albumin/Globulin Ratio 0.6 L 10/23/17 06:45 WBC RBC Hgb Hct MCV MCH MCHC RDW Plt Count Manual Plt Count 50 L MPV Gran % Lymph % (Auto) [place] % (Auto) Eos % (Auto) Baso % (Auto) Gran # Lymph # (Auto) [place] # (Auto) Eos # (Auto) Baso # (Auto) Sodium Potassium Chloride Carbon Dioxide Anion Gap BUN Creatinine Est GFR ( Amer) Est GFR (Non-Af Amer) POC Glucose (mg/dL) Random Glucose Calcium Total Bilirubin AST ALT Alkaline Phosphatase Total Protein Albumin Globulin Albumin/Globulin Ratio Assessment & Plan - Assessment and Plan (Free Text) Assessment: 52 male under ICU management for management of possible HIT with Dabigatran drip , as per Heme. Patient was on DAPT for recent cardiac stent, platelets fell 50 % on anticoagulation, held now. Cellulitis, possible osteomyelitis, s/p transmetatarsal amputation of the right foot (10/06/17) Hx CVA with L residual weakness CAD s/p stent (06/13/17), CHF, pacemaker (metronic) HTN PVD RENATA, on CPAP COPD DM_2__, peripheral neuropathy ESRD MWF due to HTN/DM, with Anemia, Hyperphosphatemia, Secondary Hyperparathyroidism, Hypothyroidism severe pulmonary HTN Moxifloxacin and PCN allergy Anemia at 7.3 (baseline 8-9), asymptomatic Recommend: - Admit to MICU - Stop Lovenox/Heparin; send anti-HIT antibodies; Continuous monitoring in ICU with Argatroban drip; all per heme recommendations - Continue ASA, Lipitor - Continue with Duoneb, Brovana, Pulmicort and Singulair treatment, achieving SaO2 > 92% - Continue with Bacitracin, Merrem, Micafungin - Continue with Synthroid - Continue with GI Prophylaxis - Protonix, and Zofran PRN for nausea - Continue with Flomax - Maintain Normothermia - Maintain MAP > 65 with Lopressor - Maintain Euglycemia with RISS High and NPH 20 U QPM - Maintain Euvolemia; continue with Ergocalciferol, Phoslo, Flomax <Devon Webster - Last Filed: 10/23/17 14:51> Meds - Medications Medications: Current Medications Albuterol/Ipratropium (Duoneb 3 Mg/0.5 Mg (3 Ml) Ud) 3 ml IH [id number] PRN PRN Reason: Shortness of Breath Last Admin: 10/23/17 13:35 Dose: 3 ml Arformoterol Tartrate (Brovana) 15 mcg IH [id number] [facility] Last Admin: 10/23/17 07:39 Dose: Not Given Aspirin (Ecotrin) 81 mg PO DAILY [facility] Last Admin: 10/22/17 09:33 Dose: 81 mg Atorvastatin Calcium (Lipitor) 40 mg PO DIN [facility] Last Admin: 10/21/17 18:04 Dose: 40 mg Bacitracin (Bacitracin) 1 ea TOP BID [facility] Last Admin: 10/23/17 08:02 Dose: Not Given Budesonide (Pulmicort Respules) 0.5 mg IH [id number] [facility] Last Admin: 10/23/17 07:40 Dose: Not Given Calcium Acetate (Phoslo) 1,334 mg PO WM [facility] Last Admin: 10/23/17 13:08 Dose: 1,334 mg Diphenhydramine HCl (Benadryl) 25 mg PO HS PRN PRN Reason: Insomnia Last Admin: 10/22/17 22:27 Dose: 25 mg Ergocalciferol (Drisdol 50,000 Intl Units Cap) 1 cap PO WED [facility] Last Admin: 10/18/17 12:32 Dose: 1 cap Fenofibrate (Tricor) 145 mg PO DAILY [facility] Last Admin: 10/22/17 09:33 Dose: 145 mg Hydralazine HCl (Apresoline) 25 mg PO BID [facility] Last Admin: 10/21/17 17:04 Dose: Not Given Micafungin Sodium 100 mg/ (Sodium Chloride) 100 mls @ 100 mls/hr IV DAILY [facility] PRN Reason: Protocol Stop: 10/26/17 10:01 Last Admin: 10/23/17 13:09 Dose: 100 mls/hr Argatroban 250 mg/ Dextrose 252.5 mls @ 10.5 mls/hr IV .Q24H [facility]; 2 MCG/KG/MIN PRN Reason: Protocol Insulin Human NPH (Humulin N) 20 units SC QPM [facility] Last Admin: 10/21/17 17:21 Dose: Not Given Insulin Human Regular (Humulin R High) 0 units SC ACHS [facility] PRN Reason: Protocol Last Admin: 10/23/17 13:10 Dose: Not Given Latanoprost (Xalatan Opht) 0 ml OU HS [facility] Last Admin: 10/22/17 22:27 Dose: 2.5 ml Levothyroxine Sodium (Synthroid) 25 mcg PO 0600 [facility] Last Admin: 10/23/17 06:27 Dose: 25 mcg Loratadine (Claritin) 10 mg PO HS [facility] Last Admin: 10/22/17 22:27 Dose: 10 mg Metoprolol Tartrate (Lopressor) 25 mg PO BID [facility] Last Admin: 08/06/18 10:04 Dose: Not Given Montelukast Sodium (Singulair) 10 mg PO HS [facility] Last Admin: 10/22/17 22:27 Dose: 10 mg Multivitamins (Thera Tab) 1 tab PO DAILY [facility] Last Admin: 10/22/17 09:33 Dose: 1 tab Salmeterol Xinafoate /Fluticaso [Advair Hfa 230-21] 1 puff IH BID [facility] Last Admin: 10/23/17 10:04 Dose: Not Given Aayzz-2-Oelc Ethyl Esters (Lovaza) 2 gm PO BID [facility] Last Admin: 10/23/17 13:09 Dose: 2 gm Ondansetron HCl (Zofran Inj) 4 mg IVP Q6H PRN PRN Reason: Nausea/Vomiting Last Admin: 10/23/17 06:48 Dose: 4 mg Pregabalin (Lyrica) 50 mg PO [facility] Last Admin: 10/22/17 22:27 Dose: 50 mg Sevelamer HCl (Renagel) 1,600 mg PO WM [facility] Last Admin: 10/23/17 13:06 Dose: 1,600 mg Sodium Chloride ([place] Nasal [place]) 0 ml NS Q2H PRN PRN Reason: Nasal congestion Sucralfate (Carafate Oral Susp) 1 gm PO 0600,1600 [facility] Tamsulosin HCl (Flomax) 0.4 mg PO [facility] Last Admin: 10/22/17 22:27 Dose: 0.4 mg Ticagrelor (Brilinta) 90 mg PO BID [facility] Last Admin: 10/19/17 17:13 Dose: 90 mg Results - Vital Signs Recent Vital Signs: Last Vital Signs Temp 98.3 F 10/23/17 13:59 Pulse 104 H 10/23/17 13:59 Resp 20 10/23/17 13:59 BP 114/61 10/23/17 13:59 Pulse Ox 98 10/23/17 13:59 - Labs Result Diagrams: 10/23/17 06:45 10/23/17 06:45 Labs: Laboratory Results - last 24 hr 10/21/17 10/21/17 10/21/17 21:01 21:52 22:27 WBC RBC Hgb Hct MCV MCH MCHC RDW Plt Count Manual Plt Count MPV Gran % Lymph % (Auto) [place] % (Auto) Eos % (Auto) Baso % (Auto) Gran # Lymph # (Auto) [place] # (Auto) Eos # (Auto) Baso # (Auto) Sodium Potassium Chloride Carbon Dioxide Anion Gap BUN Creatinine Est GFR ( Amer) Est GFR (Non-Af Amer) POC Glucose (mg/dL) 48 L 57 L 64 L Random Glucose Calcium Total Bilirubin AST ALT Alkaline Phosphatase Total Protein Albumin Globulin Albumin/Globulin Ratio 10/22/17 10/22/17 10/22/17 00:36 05:19 11:20 WBC RBC Hgb Hct MCV MCH MCHC RDW Plt Count Manual Plt Count MPV Gran % Lymph % (Auto) [place] % (Auto) Eos % (Auto) Baso % (Auto) Gran # Lymph # (Auto) [place] # (Auto) Eos # (Auto) Baso # (Auto) Sodium Potassium Chloride Carbon Dioxide Anion Gap BUN Creatinine Est GFR ( Amer) Est GFR (Non-Af Amer) POC Glucose (mg/dL) 40 L 75 86 Random Glucose Calcium Total Bilirubin AST ALT Alkaline Phosphatase Total Protein Albumin Globulin Albumin/Globulin Ratio 10/22/17 10/22/17 10/23/17 16:23 21:44 01:50 WBC RBC Hgb Hct MCV MCH MCHC RDW Plt Count Manual Plt Count MPV Gran % Lymph % (Auto) [place] % (Auto) Eos % (Auto) Baso % (Auto) Gran # Lymph # (Auto) [place] # (Auto) Eos # (Auto) Baso # (Auto) Sodium Potassium Chloride Carbon Dioxide Anion Gap BUN Creatinine Est GFR ( Amer) Est GFR (Non-Af Amer) POC Glucose (mg/dL) 156 H 123 H 132 H Random Glucose Calcium Total Bilirubin AST ALT Alkaline Phosphatase Total Protein Albumin Globulin Albumin/Globulin Ratio 10/23/17 10/23/17 10/23/17 06:37 06:45 06:45 WBC 8.8 RBC 3.15 L Hgb 9.3 L Hct 28.9 L MCV 91.7 MCH 29.5 MCHC 32.2 RDW 17.0 H Plt Count 38 L* Manual Plt Count MPV 11.7 H Gran % 70.6 H Lymph % (Auto) 14.6 L [place] % (Auto) 10.4 H Eos % (Auto) 4.1 Baso % (Auto) 0.3 Gran # 6.22 Lymph # (Auto) 1.3 [place] # (Auto) 0.9 H Eos # (Auto) 0.4 Baso # (Auto) 0.03 Sodium 135 Potassium 4.8 Chloride 98 Carbon Dioxide 28 Anion Gap 14 BUN 56 H Creatinine 7.4 H* D Est GFR ( Amer) 9 Est GFR (Non-Af Amer) 8 POC Glucose (mg/dL) 130 H Random Glucose 104 Calcium 8.3 L Total Bilirubin 1.0 AST 45 ALT 18 Alkaline Phosphatase 67 Total Protein 6.4 Albumin 2.5 L Globulin 3.9 Albumin/Globulin Ratio 0.6 L 10/23/17 06:45 WBC RBC Hgb Hct MCV MCH MCHC RDW Plt Count Manual Plt Count 50 L MPV Gran % Lymph % (Auto) [place] % (Auto) Eos % (Auto) Baso % (Auto) Gran # Lymph # (Auto) [place] # (Auto) Eos # (Auto) Baso # (Auto) Sodium Potassium Chloride Carbon Dioxide Anion Gap BUN Creatinine Est GFR ( Amer) Est GFR (Non-Af Amer) POC Glucose (mg/dL) Random Glucose Calcium Total Bilirubin AST ALT Alkaline Phosphatase Total Protein Albumin Globulin Albumin/Globulin Ratio Assessment & Plan - Assessment and Plan (Free Text) Assessment: Patient seen and examined on rounds with resident, agree with note with following additions/exceptions: Patient is 52yo male with PMHx of PVD, ESRD on HD, CAD with stents, obesity, RENATA , TMA, being transferred to [facility] as per hematology for 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 Currently afebrile, HD stable, comfortable in NAD, doing well, no major complaints DC lovenox/heparin products ASA, Lipitor, BB Synthroid Argatroban as per heme PTT q2hr GI ppx Transfer to MICU
[2017-10-23] MEDS: Sucralfate 1 gm/10 ml Oral Susp UD PO SCH (17:10)
[2017-10-23] MEDS: Multivitamin Therapeutic Tab PO SCH (17:15)
--- NOTE | 2017-10-23 18:53 | CP.PCM.PN ---
Subjective - Date & Time of Evaluation Date of Evaluation: 10/23/17 Time of Evaluation: 13:10 - Subjective Subjective: Patient being transferred to MICU for Argatroban drip for possible HIT. No fevers, not in distress. Objective - Vital Signs/Intake and Output Vital Signs (last 24 hours): Temp Pulse Resp BP Pulse Ox 97.3 F L 87 20 140/65 100 10/23/17 06:00 10/23/17 06:00 10/23/17 06:00 10/23/17 06:00 10/23/17 06:00 Intake and Output: 10/23/17 10/23/17 06:59 18:59 Intake Total 840 Balance 840 - Medications Medications: Current Medications Albuterol/Ipratropium (Duoneb 3 Mg/0.5 Mg (3 Ml) Ud) 3 ml IH [id number] PRN PRN Reason: Shortness of Breath Last Admin: 10/21/17 07:29 Dose: 3 ml Arformoterol Tartrate (Brovana) 15 mcg IH [id number] [facility] Last Admin: 10/23/17 07:39 Dose: Not Given Aspirin (Ecotrin) 81 mg PO DAILY [facility] Last Admin: 10/22/17 09:33 Dose: 81 mg Atorvastatin Calcium (Lipitor) 40 mg PO DIN [facility] Last Admin: 10/21/17 18:04 Dose: 40 mg Bacitracin (Bacitracin) 1 ea TOP BID [facility] Last Admin: 10/22/17 09:39 Dose: 1 ea Budesonide (Pulmicort Respules) 0.5 mg IH [id number] [facility] Last Admin: 10/23/17 07:40 Dose: Not Given Calcium Acetate (Phoslo) 1,334 mg PO WM [facility] Last Admin: 10/22/17 17:10 Dose: 1,334 mg Diphenhydramine HCl (Benadryl) 25 mg PO HS PRN PRN Reason: Insomnia Last Admin: 10/22/17 22:27 Dose: 25 mg Ergocalciferol (Drisdol 50,000 Intl Units Cap) 1 cap PO WED [facility] Last Admin: 10/18/17 12:32 Dose: 1 cap Fenofibrate (Tricor) 145 mg PO DAILY [facility] Last Admin: 10/22/17 09:33 Dose: 145 mg Hydralazine HCl (Apresoline) 25 mg PO BID [facility] Last Admin: 10/21/17 17:04 Dose: Not Given Micafungin Sodium 100 mg/ (Sodium Chloride) 100 mls @ 100 mls/hr IV DAILY [facility] PRN Reason: Protocol Stop: 10/26/17 10:01 Last Admin: 10/22/17 09:36 Dose: 100 mls/hr Argatroban 250 mg/ Dextrose 252.5 mls @ 10.5 mls/hr IV .Q24H [facility]; 2 MCG/KG/MIN PRN Reason: Protocol Insulin Human NPH (Humulin N) 20 units SC QPM [facility] Last Admin: 10/21/17 17:21 Dose: Not Given Insulin Human Regular (Humulin R High) 0 units SC ACHS [facility] PRN Reason: Protocol Last Admin: 10/23/17 07:55 Dose: Not Given Latanoprost (Xalatan Opht) 0 ml OU HS [facility] Last Admin: 10/22/17 22:27 Dose: 2.5 ml Levothyroxine Sodium (Synthroid) 25 mcg PO 0600 [facility] Last Admin: 10/23/17 06:27 Dose: 25 mcg Loratadine (Claritin) 10 mg PO HS [facility] Last Admin: 10/22/17 22:27 Dose: 10 mg Metoprolol Tartrate (Lopressor) 25 mg PO BID [facility] Last Admin: 10/22/17 18:52 Dose: Not Given Montelukast Sodium (Singulair) 10 mg PO HS [facility] Last Admin: 10/22/17 22:27 Dose: 10 mg Multivitamins (Thera Tab) 1 tab PO DAILY [facility] Last Admin: 10/22/17 09:33 Dose: 1 tab Salmeterol Xinafoate /Fluticaso [Advair Hfa 230-21] 1 puff IH BID [facility] Last Admin: 10/22/17 17:12 Dose: Not Given [id number]-[id number] Ethyl Esters (Lovaza) 2 gm PO BID [facility] Last Admin: 10/22/17 09:00 Dose: 2 gm Ondansetron HCl (Zofran Inj) 4 mg IVP Q6H PRN PRN Reason: Nausea/Vomiting Last Admin: 10/23/17 06:48 Dose: 4 mg Pantoprazole Sodium (Protonix Ec Tab) 40 mg PO 0600 [facility] Last Admin: 10/23/17 06:27 Dose: 40 mg Pregabalin (Lyrica) 50 mg PO HS [facility] Last Admin: 10/22/17 22:27 Dose: 50 mg Sevelamer HCl (Renagel) 1,600 mg PO WM [facility] Last Admin: 10/22/17 17:12 Dose: 1,600 mg Sodium Chloride ([place] Nasal [place]) 0 ml NS Q2H PRN PRN Reason: Nasal congestion Tamsulosin HCl (Flomax) 0.4 mg PO HS [facility] Last Admin: 10/22/17 22:27 Dose: 0.4 mg Ticagrelor (Brilinta) 90 mg PO BID [facility] Last Admin: 10/19/17 17:13 Dose: 90 mg - Labs Labs: 10/23/17 06:45 10/23/17 06:45 PT 17.9 SECONDS (9.4-12.5) H 10/20/17 07:00 INR 1.54 10/20/17 07:00 APTT 32.5 Seconds (25.1-36.5) 10/20/17 07:00 - Constitutional Appears: Chronically Ill - Head Exam Head Exam: NORMAL INSPECTION - Respiratory Exam Respiratory Exam: Decreased Breath Sounds - Cardiovascular Exam Cardiovascular Exam: +S1, +S2 - GI/Abdominal Exam GI & Abdominal Exam: Soft. 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 diff. associated diarrhea ESRD on HD DM obesity CAD S/P PCI retinopathy history of pancreatitis Plan continue Mycamine for C. glabrata in the blood; patient will need Ophtho exam patient for Argatroban drip for possible HIT, then for BKA will continue to monitor clinically
[2017-10-23] MEDS: Insulin Human NPH 1 UNITS/0.01 ML SC SCH (19:09)
[2017-10-23 19:57] LABS: HEMOGLOBIN 8.4 g/dL (14.0-18.0); MEAN CELL VOLUME 91.6 fl (80.0-105.0); MEAN CORPUSCULAR HEMOGLOBIN 29.4 pg (25.0-35.0); MEAN CORPUSCULAR HGB CONC 32.1 g/dl (31.0-37.0); MEAN PLATELET VOLUME 11.6 fl (7.0-11.0); RBC 2.86 10^6/uL (3.5-6.1); RED CELL DISTRIBUTION WIDTH 16.7 % (11.5-14.5); WHITE BLOOD COUNT 5.7 10^3/ul (4.5-11.0)
[2017-10-23 19:59] LABS: PLATELET COUNT 32 10^3/uL (120.0-450.0)
[2017-10-23] MEDS ORDERED: Oxycodone/Acetaminophen 5/325 mg Tab PO ONE (20:42)
[2017-10-23 21:07] LABS: HEMOGLOBIN 8.6 g/dL (14.0-18.0); MEAN CELL VOLUME 92.4 fl (80.0-105.0); MEAN CORPUSCULAR HEMOGLOBIN 29.9 pg (25.0-35.0); MEAN CORPUSCULAR HGB CONC 32.3 g/dl (31.0-37.0); RBC 2.88 10^6/uL (3.5-6.1); RED CELL DISTRIBUTION WIDTH 16.8 % (11.5-14.5); WHITE BLOOD COUNT 6.1 10^3/ul (4.5-11.0)
[2017-10-23 21:23] LABS: PLATELET COUNT 32 10^3/uL (120.0-450.0)
[2017-10-23] MEDS: Latanoprost 2.5 ml Opht Soln OU SCH (22:01)
[2017-10-24 01:26] LABS: HEMOGLOBIN 8.2 g/dL (14.0-18.0); MEAN CELL VOLUME 92.3 fl (80.0-105.0); MEAN CORPUSCULAR HEMOGLOBIN 29.9 pg (25.0-35.0); MEAN CORPUSCULAR HGB CONC 32.4 g/dl (31.0-37.0); MEAN PLATELET VOLUME 11.6 fl (7.0-11.0); RBC 2.74 10^6/uL (3.5-6.1); WHITE BLOOD COUNT 5.2 10^3/ul (4.5-11.0)
[2017-10-24 01:30] LABS: PLATELET COUNT 31 10^3/uL (120.0-450.0)
--- NOTE | 2017-10-24 01:47 | CON ---
Copied To: Azalea Morris MD Attending MD: Azalea Morris MD DATE: 10/23/2017 HISTORY OF PRESENT ILLNESS: Mr. Berger is a 52-year-old male admitted to the hospital because of the right foot gangrene and bone exposure. He had recent cardiac stent placed in 05/2017, was started on aspirin and Brilinta by Dr. Erickson. He received prophylactic doses of heparin since the hospitalization. Platelet count declined to 38,000 today; on admission, it was 105,000. He has end stage renal disease, on hemodialysis. He was hemodialyzed today. Awaiting below knee amputation of the right leg. PAST MEDICAL HISTORY: CVA; right-sided residual weakness; CAD, status post stent placement in 05/2017 with pacemaker; history of CHF; peripheral vascular disease; COPD; diabetes mellitus type 2; peripheral neuropathy; end-stage renal disease, on hemodialysis; chronic anemia; pulmonary hypertension. PAST SURGICAL HISTORY: Right arm dialysis fistula, corneal transplant, AV fistula, cholecystectomy. FAMILY HISTORY: Positive for end stage renal disease, history of stroke, diabetes. PERSONAL HISTORY: Nonsmoker. No history of alcohol abuse. ALLERGIES: MOXIFLOXACIN, PENICILLIN, INSULIN. REVIEW OF SYSTEMS: As per HPI. Rest of 12-point review of systems reviewed negative. PHYSICAL EXAMINATION: GENERAL: Comfortable in bed, in no acute distress. Facial puffiness present. VITAL SIGNS: Temperature 98.8, heart rate 65 per minute, respiratory rate 18 per minute, blood pressure 110/50, pulse ox is 100% on room air. HEENT: Pallor positive. NECK: No lymphadenopathy. CHEST: Air entry present and equal bilateral. No added sounds. CARDIOVASCULAR: S1, S2 normal. No murmur. No gallop. EXTREMITIES: Right foot in dressing. NEUROLOGIC: Awake, alert and oriented x3. No focal sensorimotor deficit. SKIN: No petechiae. No rash. CURRENT MEDICATIONS: DuoNeb, Brovana 15 mcg inhalation, aspirin 81 mg daily, Lipitor 40 mg daily, bacitracin ointment, PhosLo, Benadryl p.r.n., vitamin D, fenofibrate, hydralazine p.r.n., insulin, levothyroxine 25 mcg daily, loratadine 10 mg daily, metoprolol 25 mg p.o. b.i.d., Zofran p.r.n., Lyrica, Renagel, [place] spray, Flomax, Brilinta. LABORATORY DATA: White count 6.1; hemoglobin 8.6; hematocrit 26.6; platelet count 32, platelet count on admission was 105. Creatinine 7.4. Sodium 135, potassium 4.8. ASSESSMENT AND PLAN: 1. Thrombocytopenia, likely heparin induced thrombocytopenia. We will start the argatroban drip, transfer to intensive care unit for initiation of argatroban drip. Discussed with the mother and the son at bedside, both agreed with the plan. 2. End stage renal disease, on hemodialysis. Hemodialyzed today. Hemoglobin is 8.6, we will monitor closely. Iron study showed normal iron of 140. Iron saturation is 54%. Anemia is likely due to end stage renal disease. We will give one dose of Aranesp 100 mcg. 3. Surgery plan for tomorrow, discussed with the rn medical surgical, with Dr. Urrutia's team, DrMariaelena . We would recommend postponing surgery until he is stable. 4. Heparin-induced thrombocytopenia, he is at hypercoagulable state. Surgical procedure might trigger further coagulopathy. He will be high risk for surgery under these circumstances. 5. Received a call from ICU nurse around 7:00 p.m. that the patient had dark stool, melena. Advised to stop the argatroban drip. Send the hemoglobin and hematocrit stat. Repeat CBC. Reviewed hemoglobin 8.6; in the morning, it was 9.3. We will continue to follow blood count closely. Discussed with Dr. Potter's team. Discussed with the ICU resident. Thank you, Dr. Potter for allowing us to participate in Mr. Berger's care. Azalea Morris MD
[2017-10-24] MEDS ORDERED: Oxycodone/Acetaminophen 5/325 mg Tab PO STA (01:51)
[2017-10-24] MEDS: Levothyroxine 25 MCG TAB PO SCH (05:23)
[2017-10-24] MEDS: Sucralfate 1 gm/10 ml Oral Susp UD PO SCH ×2 (05:23→17:41)
[2017-10-24 07:36] LABS: BASO # 0.01 K/mm3 (0.0-2.0); BASO % 0.2 % (0.0-3.0); EOS # 0.2 (0.0-0.7); EOS % 3.2 % (1.5-5.0); GRAN # 2.48 (1.4-6.5); GRAN % 52.1 % (50.0-68.0); HEMOGLOBIN 8.6 g/dL (14.0-18.0); LYMPH # 1.4 (1.2-3.4); LYMPH % 29.3 % (22.0-35.0); MEAN CELL VOLUME 90.7 fl (80.0-105.0); MEAN CORPUSCULAR HEMOGLOBIN 29.7 pg (25.0-35.0); MEAN CORPUSCULAR HGB CONC 32.7 g/dl (31.0-37.0); MONO # 0.7 (0.1-0.6); MONO % 15.2 % (1.0-6.0); RED CELL DISTRIBUTION WIDTH 16.8 % (11.5-14.5); WHITE BLOOD COUNT 4.8 10^3/ul (4.5-11.0)
[2017-10-24 07:38] LABS: PLATELET COUNT 32 10^3/uL (120.0-450.0)
[2017-10-24 08:19] LABS: ALB/GLOB RATIO 0.7 (1.1-1.8); ALBUMIN 2.6 g/dL (3.0-4.8)
[2017-10-24] MEDS: Budesonide 0.5 mg/2 ml Inhal Susp UD IH SCH ×2 (08:27→20:49)
[2017-10-24] MEDS: Arformoterol 15 mcg/2 ml Inh Sol IH SCH ×2 (08:27→20:48)
--- NOTE | 2017-10-24 08:46 | CP.PCM.PN ---
Subjective - Date & Time of Evaluation Date of Evaluation: 10/24/17 Time of Evaluation: 07:45 - Subjective Subjective: Surgery Progress Note for Dr. Urrutia Pt seen and examined at bedside. Per overnight report pt had several episodes of bloody BMs. Patient denies any acute complaints, tolerating diet. Currently in ICU. Objective - Vital Signs/Intake and Output Vital Signs (last 24 hours): Temp Pulse Resp BP Pulse Ox 98.3 F 93 H 11 L 129/58 L 98 10/23/17 17:00 10/24/17 07:06 10/24/17 07:06 10/24/17 06:43 10/24/17 06:43 - Medications Medications: Current Medications Albuterol/Ipratropium (Duoneb 3 Mg/0.5 Mg (3 Ml) Ud) 3 ml IH [id number] PRN PRN Reason: Shortness of Breath Last Admin: 10/23/17 13:35 Dose: 3 ml Arformoterol Tartrate (Brovana) 15 mcg IH [id number] [facility] Last Admin: 10/24/17 08:27 Dose: 15 mcg Aspirin (Ecotrin) 81 mg PO DAILY [facility] Last Admin: 10/22/17 09:33 Dose: 81 mg Atorvastatin Calcium (Lipitor) 40 mg PO DIN [facility] Last Admin: 10/23/17 17:11 Dose: 40 mg Bacitracin (Bacitracin) 1 ea TOP BID [facility] Last Admin: 10/23/17 17:10 Dose: Not Given Budesonide (Pulmicort Respules) 0.5 mg IH [id number] [facility] Last Admin: 10/24/17 08:27 Dose: 0.5 mg Calcium Acetate (Phoslo) 1,334 mg PO WM [facility] Last Admin: 10/23/17 17:12 Dose: 1,334 mg Diphenhydramine HCl (Benadryl) 25 mg PO HS PRN PRN Reason: Insomnia Last Admin: 10/23/17 21:35 Dose: 25 mg Ergocalciferol (Drisdol 50,000 Intl Units Cap) 1 cap PO WED [facility] Last Admin: 10/18/17 12:32 Dose: 1 cap Fenofibrate (Tricor) 145 mg PO DAILY [facility] Last Admin: 10/23/17 17:13 Dose: 145 mg Hydralazine HCl (Apresoline) 25 mg PO BID [facility] Last Admin: 10/21/17 17:04 Dose: Not Given Micafungin Sodium 100 mg/ (Sodium Chloride) 100 mls @ 100 mls/hr IV DAILY [facility] PRN Reason: Protocol Stop: 10/26/17 10:01 Last Admin: 10/23/17 13:09 Dose: 100 mls/hr Argatroban 250 mg/ Dextrose 252.5 mls @ 10.5 mls/hr IV .Q24H [facility]; 2 MCG/KG/MIN PRN Reason: Protocol Last Admin: 10/23/17 17:08 Dose: 10.5 mls/hr Insulin Human NPH (Humulin N) 20 units SC QPM [facility] Last Admin: 10/23/17 19:09 Dose: Not Given Insulin Human Regular (Humulin R High) 0 units SC ACHS [facility] PRN Reason: Protocol Last Admin: 10/23/17 23:21 Dose: Not Given Latanoprost (Xalatan Opht) 0 ml OU HS [facility] Last Admin: 10/23/17 22:01 Dose: 2.5 ml Levothyroxine Sodium (Synthroid) 25 mcg PO 0600 [facility] Last Admin: 10/24/17 05:23 Dose: 25 mcg Loratadine (Claritin) 10 mg PO HS [facility] Last Admin: 10/23/17 21:35 Dose: 10 mg Metoprolol Tartrate (Lopressor) 25 mg PO BID [facility] Last Admin: 10/23/17 17:11 Dose: 25 mg Montelukast Sodium (Singulair) 10 mg PO [facility] Last Admin: 10/23/17 21:35 Dose: 10 mg Multivitamins (Thera Tab) 1 tab PO DAILY [facility] Last Admin: 10/23/17 17:15 Dose: 1 tab Salmeterol Xinafoate /Fluticaso [Advair Hfa 230-21] 1 puff IH BID [facility] Last Admin: 10/23/17 17:13 Dose: Not Given [id number] Ethyl Esters (Lovaza) 2 gm PO BID [facility] Last Admin: 10/23/17 17:12 Dose: 1 gm Ondansetron HCl (Zofran Inj) 4 mg IVP Q6H PRN PRN Reason: Nausea/Vomiting Last Admin: 10/23/17 06:48 Dose: 4 mg Pregabalin (Lyrica) 50 mg PO [facility] Last Admin: 10/23/17 21:35 Dose: 50 mg Sevelamer HCl (Renagel) 1,600 mg PO WM [facility] Last Admin: 10/23/17 17:15 Dose: 1,600 mg Sodium Chloride ([place] Nasal [place]) 0 ml NS Q2H PRN PRN Reason: Nasal congestion Sucralfate (Carafate Oral Susp) 1 gm PO 0600,1600 [facility] Last Admin: 10/24/17 05:23 Dose: 1 gm Tamsulosin HCl (Flomax) 0.4 mg PO HS [facility] Last Admin: 10/23/17 21:35 Dose: 0.4 mg Ticagrelor (Brilinta) 90 mg PO BID [facility] Last Admin: 10/19/17 17:13 Dose: 90 mg - Labs Labs: 10/24/17 07:00 10/24/17 07:00 PT 17.9 SECONDS (9.4-12.5) H 10/20/17 07:00 INR 1.54 10/20/17 07:00 APTT 80.4 Seconds (25.1-36.5) H 10/23/17 19:54 - Constitutional Appears: Non-toxic, No Acute Distress, Chronically Ill - Head Exam Head Exam: ATRAUMATIC, NORMAL INSPECTION - Eye Exam Eye Exam: EOMI, Normal appearance, PERRL - ENT Exam ENT Exam: Mucous Membranes Moist - Respiratory Exam Respiratory Exam: Clear to Ausculation Bilateral, NORMAL BREATHING PATTERN - Cardiovascular Exam Cardiovascular Exam: REGULAR RHYTHM, +S1, +S2 - GI/Abdominal Exam GI & Abdominal Exam: Soft, Normal Bowel Sounds - Extremities Exam Additional comments: RLE wrapped in dressing, intact - Neurological Exam Neurological Exam: Alert, Awake, CN II-XII Intact, Oriented x3 - Skin Skin Exam: Dry, Intact, Warm Assessment and Plan - Assessment and Plan (Free Text) Assessment: 52M with ESRD, PAD and thrombocytopenia requiring Right BKA Plan: F/u HIT panel Heparin held Zyvox and Merrem held due to their potential for inducing thrombocytopenia Pt had multiple episodes of bloody BMs overnight, currently in ICU OR re-scheduled to next Wednesday 08/30, will defer until patient is fully stable and medically optimized for procedure Further recommendations as per Dr. Renan Rodriguez, DO PGY-1
[2017-10-24] MEDS: Insulin Reg-HIGH-Coverage SC SCH ×5 (09:12→23:29)
[2017-10-24] MEDS: Multivitamin Therapeutic Tab PO SCH (09:29)
[2017-10-24] MEDS: Omega-3-Acid Ethyl Esters 1 GM Cap PO SCH ×2 (09:30→18:00)
[2017-10-24] MEDS: Micafungin 100 MG in Sodium Chloride 0.9% 100 ML IV SCH (09:41)
--- NOTE | 2017-10-24 09:42 | CP.PCM.PN ---
<Asia Aguila - Last Filed: 10/24/17 09:34> Subjective - Date & Time of Evaluation Date of Evaluation: 10/24/17 Time of Evaluation: 09:34 - Subjective Subjective: PGY-[address] Potter 8 bloody BM, first bright red, then dark overnight. Hb stable at 8.6. Off agatroban. Denies dizziness, CP, SOB. Anuric Objective - Vital Signs/Intake and Output Vital Signs (last 24 hours): Temp Pulse Resp BP Pulse Ox 98.3 F 93 H 11 L 129/58 L 98 10/23/17 17:00 10/24/17 07:06 10/24/17 07:06 10/24/17 06:43 10/24/17 06:43 - Medications Medications: Current Medications Albuterol/Ipratropium (Duoneb 3 Mg/0.5 Mg (3 Ml) Ud) 3 ml IH [id number] PRN PRN Reason: Shortness of Breath Last Admin: 10/23/17 13:35 Dose: 3 ml Arformoterol Tartrate (Brovana) 15 mcg IH [id number] [facility] Last Admin: 10/24/17 08:27 Dose: 15 mcg Aspirin (Ecotrin) 81 mg PO DAILY [facility] Last Admin: 10/22/17 09:33 Dose: 81 mg Atorvastatin Calcium (Lipitor) 40 mg PO DIN [facility] Last Admin: 10/23/17 17:11 Dose: 40 mg Bacitracin (Bacitracin) 1 ea TOP BID [facility] Last Admin: 10/23/17 17:10 Dose: Not Given Budesonide (Pulmicort Respules) 0.5 mg IH [id number] [facility] Last Admin: 10/24/17 08:27 Dose: 0.5 mg Calcium Acetate (Phoslo) 1,334 mg PO WM [facility] Last Admin: 10/23/17 17:12 Dose: 1,334 mg Diphenhydramine HCl (Benadryl) 25 mg PO HS PRN PRN Reason: Insomnia Last Admin: 10/23/17 21:35 Dose: 25 mg Ergocalciferol (Drisdol 50,000 Intl Units Cap) 1 cap PO WED [facility] Last Admin: 10/18/17 12:32 Dose: 1 cap Fenofibrate (Tricor) 145 mg PO DAILY [facility] Last Admin: 10/23/17 17:13 Dose: 145 mg Hydralazine HCl (Apresoline) 25 mg PO BID [facility] Last Admin: 10/21/17 17:04 Dose: Not Given Micafungin Sodium 100 mg/ (Sodium Chloride) 100 mls @ 100 mls/hr IV DAILY [facility] PRN Reason: Protocol Stop: 10/26/17 10:01 Last Admin: 10/23/17 13:09 Dose: 100 mls/hr Argatroban 250 mg/ Dextrose 252.5 mls @ 10.5 mls/hr IV .Q24H [facility]; 2 MCG/KG/MIN PRN Reason: Protocol Last Admin: 10/23/17 17:08 Dose: 10.5 mls/hr Insulin Human NPH (Humulin N) 20 units SC QPM [facility] Last Admin: 10/23/17 19:09 Dose: Not Given Insulin Human Regular (Humulin R High) 0 units SC ACHS [facility] PRN Reason: Protocol Last Admin: 10/23/17 23:21 Dose: Not Given Latanoprost (Xalatan Opht) 0 ml OU HS [facility] Last Admin: 10/23/17 22:01 Dose: 2.5 ml Levothyroxine Sodium (Synthroid) 25 mcg PO 0600 [facility] Last Admin: 10/24/17 05:23 Dose: 25 mcg Loratadine (Claritin) 10 mg PO HS [facility] Last Admin: 10/23/17 21:35 Dose: 10 mg Metoprolol Tartrate (Lopressor) 25 mg PO BID [facility] Last Admin: 10/23/17 17:11 Dose: 25 mg Montelukast Sodium (Singulair) 10 mg PO HS [facility] Last Admin: 10/23/17 21:35 Dose: 10 mg Multivitamins (Thera Tab) 1 tab PO DAILY [facility] Last Admin: 10/23/17 17:15 Dose: 1 tab Salmeterol Xinafoate /Fluticaso [Advair Hfa 230-21] 1 puff IH BID [facility] Last Admin: 10/23/17 17:13 Dose: Not Given Leuwi-[id number] Ethyl Esters (Lovaza) 2 gm PO BID [facility] Last Admin: 10/23/17 17:12 Dose: 1 gm Ondansetron HCl (Zofran Inj) 4 mg IVP Q6H PRN PRN Reason: Nausea/Vomiting Last Admin: 10/23/17 06:48 Dose: 4 mg Pregabalin (Lyrica) 50 mg PO HS [facility] Last Admin: 10/23/17 21:35 Dose: 50 mg Sevelamer HCl (Renagel) 1,600 mg PO WM [facility] Last Admin: 10/23/17 17:15 Dose: 1,600 mg Sodium Chloride ([place] Nasal [place]) 0 ml NS Q2H PRN PRN Reason: Nasal congestion Sucralfate (Carafate Oral Susp) 1 gm PO 0600,1600 [facility] Last Admin: 10/24/17 05:23 Dose: 1 gm Tamsulosin HCl (Flomax) 0.4 mg PO HS [facility] Last Admin: 10/23/17 21:35 Dose: 0.4 mg Ticagrelor (Brilinta) 90 mg PO BID [facility] Last Admin: 10/19/17 17:13 Dose: 90 mg - Labs Labs: 10/24/17 07:00 10/24/17 07:00 PT 17.9 SECONDS (9.4-12.5) H 10/20/17 07:00 INR 1.54 10/20/17 07:00 APTT 80.4 Seconds (25.1-36.5) H 10/23/17 19:54 - Constitutional Appears: No Acute Distress - Head Exam Head Exam: ATRAUMATIC, NORMAL INSPECTION, NORMOCEPHALIC - Eye Exam Eye Exam: EOMI, Normal appearance, PERRL. absent: Scleral icterus Pupil Exam: NORMAL ACCOMODATION - ENT Exam ENT Exam: Mucous Membranes Moist - Neck Exam Additional comments: supple - Respiratory Exam Respiratory Exam: Clear to Ausculation Bilateral. absent: Rales, Rhonchi, Wheezes - Cardiovascular Exam Cardiovascular Exam: REGULAR RHYTHM, +S1, +S2 - GI/Abdominal Exam GI & Abdominal Exam: Soft, Normal Bowel Sounds. absent: Tenderness, Organomegaly - Extremities Exam Extremities Exam: absent: Calf Tenderness Additional comments: dressing with mild serous fluid strike through - Back Exam Back Exam: absent: CVA tenderness (L), CVA tenderness (R) - Neurological Exam Neurological Exam: Alert, Awake, Oriented x3 - Psychiatric Exam Psychiatric exam: Normal Affect, Normal Mood - Skin Skin Exam: Dry, Warm Assessment and Plan - Assessment and Plan (Free Text) Plan: Mr Berger, 52 M recently s/p transmetatarsal amputation of the right foot () due to wet gangrene to the right foot and bone exposure. He is on Dual antiplatelet for recent cardiac stent in May. His RLE stump is not healing, possibly because he is a vasculopath and he weight bear despite warning. Due to the non-healing wound due to poor perfusion, he was scheduled for R BKA. The surgery was delayed twice because he developed fungemia on zyvox, merem, micafungin. 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 He was transferred to ICU for agatroban but developed GI bleed. Now off ASA, brilinta, heparin SC, agatroban. 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 Stop protonix, merem, zyvox to r/o other medication etiology Fungemia (10/16), Had ruled out thrombi @ pacemaker lead. Had ruled out Opthalmitis. Anemia at 7.3 (baseline 8-9), Anemia of chronic disease and due to ESRD, asymptomatic, s/p 3u PRBC. Goal to reach Hb 10 for surgery. CAD s/p 2 YORDY in LAD (06/13/17) on dual-antiplatelet, CHF, pacemaker (metronic) HTN/PVD RENATA, cannot tolerate CPAP; COPD; severe pulmonary HTN DM_2__, peripheral neuropathy Hx CVA with L residual weakness ESRD MWF due to HTN/DM, with Anemia, Hyperphosphatemia, Secondary Hyperparathyroidism Hypothyroidism Moxifloxacin and PCN allergy P: GI bleed. trend h/h q8. Hb stable at 8.5. transfuse as needed. For HIT, Argatroban gtt held. Pending heparin ab and Serotonin release assy result. For fungemia, mycafungin, day __7___. Stopped Merem & Linezolid (x 6 day) for possible cause of low platelet; Repeat blood culture (8/2) negative. Echo showed EF 55. RVSP 49. Aortic cusp calcified cannot r/o veg. No sig changes to echo 1 month ago. LASHAWN no vegetation in pacemaker lead. pthalmologist has r/o endopthalmitis. BKA was delayed for fungemia and HIT. As for non-healing ulcer, Percocet Q6 PRN ; Lyrica HS Lipitor 40, fenofibrate, lovaza 2gm bid Cardiology cleared. Pending ID and heme clearance for surgery High uriel-operative cardiac risk. For anemia, sp 3u RBC. goal Hb 10 for surgery. For CAD, Continue metoprolol 50. ASA/Brilinta on hold For HTN, hydralazine 25 bid, For DM2, hold glipizide, reduce humulin N to 20u per last hospital insulin requirement, lispro-low sliding scale For chronic ESRD, HD MWF. Continue Phoslo, Vit D2, multivitamin, sevelamer For COPD/RENATA, HOB 45, Duoneb PRN, loratidine, CPAP PRN, montelikast, Advair. Cannot tolerate CPAP For [place], bimatoprost For insomnia, benadryl HS prn For hypothyroidism, synthroid 25 Flomax for Bph Prophylaxis: carafate. Off anticoagulant due to GI bleed Consult: Renan Figueroa, Dre, Rich, Lali, Jensen, Anabelle, Cyndee Access: L AV fistula. R IV s/r/d/w Dr. Potter <Gallo Potter S - Last Filed: 10/24/17 22:30> Objective - Vital Signs/Intake and Output Vital Signs (last 24 hours): Temp Pulse Resp BP Pulse Ox 97.6 F 61 11 L 103/51 L 100 10/24/17 12:00 10/24/17 21:30 10/24/17 21:30 10/24/17 20:59 10/24/17 21:30 Intake and Output: 10/24/17 10/25/17 18:59 06:59 Intake Total 420 Output Total 0 Balance 420 - Medications Medications: Current Medications Albuterol/Ipratropium (Duoneb 3 Mg/0.5 Mg (3 Ml) Ud) 3 ml IH [id number] PRN PRN Reason: Shortness of Breath Last Admin: 10/23/17 13:35 Dose: 3 ml Arformoterol Tartrate (Brovana) 15 mcg IH [id number] [facility] Last Admin: 10/24/17 20:48 Dose: 15 mcg Aspirin (Ecotrin) 81 mg PO DAILY [facility] Last Admin: 10/22/17 09:33 Dose: 81 mg Atorvastatin Calcium (Lipitor) 40 mg PO DIN [facility] Last Admin: 10/24/17 17:44 Dose: 40 mg Bacitracin (Bacitracin) 1 ea TOP BID [facility] Last Admin: 10/23/17 17:10 Dose: Not Given Budesonide (Pulmicort Respules) 0.5 mg IH [id number] [facility] Last Admin: 10/24/17 20:49 Dose: 0.5 mg Calcium Acetate (Phoslo) 1,334 mg PO WM [facility] Last Admin: 10/24/17 17:40 Dose: 1,334 mg Diphenhydramine HCl (Benadryl) 25 mg PO HS PRN PRN Reason: Insomnia Last Admin: 10/24/17 22:03 Dose: 25 mg Ergocalciferol (Drisdol 50,000 Intl Units Cap) 1 cap PO WED [facility] Last Admin: 10/18/17 12:32 Dose: 1 cap Fenofibrate (Tricor) 145 mg PO DAILY [facility] Last Admin: 10/24/17 09:47 Dose: 145 mg Hydralazine HCl (Apresoline) 25 mg PO BID [facility] Last Admin: 10/21/17 17:04 Dose: Not Given Micafungin Sodium 100 mg/ (Sodium Chloride) 100 mls @ 100 mls/hr IV DAILY [facility] PRN Reason: Protocol Stop: 10/26/17 10:01 Last Admin: 10/24/17 09:41 Dose: 100 mls/hr Argatroban 250 mg/ Dextrose 252.5 mls @ 10.5 mls/hr IV .Q24H [facility]; 2 MCG/KG/MIN PRN Reason: Protocol Last Admin: 10/23/17 17:08 Dose: 10.5 mls/hr Insulin Human NPH (Humulin N) 20 units SC QPM [facility] Last Admin: 10/23/17 19:09 Dose: Not Given Insulin Human Regular (Humulin R High) 0 units SC ACHS [facility] PRN Reason: Protocol Last Admin: 10/24/17 17:43 Dose: 4 units Latanoprost (Xalatan Opht) 0 ml OU HS [facility] Last Admin: 10/24/17 22:03 Dose: 2.5 ml Levothyroxine Sodium (Synthroid) 25 mcg PO 0600 [facility] Last Admin: 10/24/17 05:23 Dose: 25 mcg Loratadine (Claritin) 10 mg PO HS [facility] Last Admin: 10/24/17 22:03 Dose: 10 mg Metoprolol Tartrate (Lopressor) 25 mg PO BID [facility] Last Admin: 10/24/17 17:40 Dose: 25 mg Montelukast Sodium (Singulair) 10 mg PO [facility] Last Admin: 10/24/17 22:03 Dose: 10 mg Multivitamins (Thera Tab) 1 tab PO DAILY [facility] Last Admin: 10/24/17 09:29 Dose: 1 tab Salmeterol Xinafoate /Fluticaso [Advair Hfa 230-21] 1 puff IH BID [facility] Last Admin: 10/24/17 18:02 Dose: Not Given Syzma-4-Zvrz Ethyl Esters (Lovaza) 2 gm PO BID [facility] Last Admin: 10/24/17 09:30 Dose: 2 gm Ondansetron HCl (Zofran Inj) 4 mg IVP Q6H PRN PRN Reason: Nausea/Vomiting Last Admin: 10/23/17 06:48 Dose: 4 mg Oxycodone/Acetaminophen (Percocet 5/325 Mg Tab) 1 tab PO BID PRN PRN Reason: pain Stop: 10/27/17 19:10 Last Admin: 10/24/17 19:35 Dose: 1 tab Oxycodone/Acetaminophen (Percocet 5/325 Mg Tab) 2 tab PO Q4H PRN PRN Reason: foot pain Stop: 10/27/17 19:13 Pregabalin (Lyrica) 50 mg PO [facility] Last Admin: 10/24/17 22:03 Dose: 50 mg Sevelamer HCl (Renagel) 1,600 mg PO WM [facility] Last Admin: 10/24/17 18:02 Dose: Not Given Sodium Chloride ([place] Nasal [place]) 0 ml NS Q2H PRN PRN Reason: Nasal congestion Sucralfate (Carafate Oral Susp) 1 gm PO 0600,1600 [facility] Last Admin: 10/24/17 17:41 Dose: 1 gm Tamsulosin HCl (Flomax) 0.4 mg PO HS [facility] Last Admin: 10/24/17 22:03 Dose: 0.4 mg Ticagrelor (Brilinta) 90 mg PO BID [facility] Last Admin: 10/19/17 17:13 Dose: 90 mg - Labs Labs: 10/24/17 16:05 10/24/17 07:00 PT 17.9 SECONDS (9.4-12.5) H 10/20/17 07:00 INR 1.54 10/20/17 07:00 APTT 80.4 Seconds (25.1-36.5) H 10/23/17 19:54 Assessment and Plan - Assessment and Plan (Free Text) Plan: Pt seen and examined. I have reviewed the note of the director medical surgical and agree with it. I have discussed the assessment and plan with the resident. I have reviewed the patient's labs and medications. Pt had a GIB. It has improved. His plt are low. Pt is on Metoprolol for CAD. Percocet for pain. He is on ICU. Humulin for DM-2.
--- NOTE | 2017-10-24 10:39 | PN ---
Copied To: Azalea Morris MD Attending MD: Azalea Morris MD DATE: 10/24/2017 SUBJECTIVE: He is comfortable in bed, in no acute distress. He had around 8 loose stools since yesterday, dark in color. Stools have cleared up now. They are lightish brown. He has thrombocytopenia, HIT assay pending, clinically high suspicion for heparin-induced thrombocytopenia. He was started on argatroban drip yesterday for HIT. Argatroban drip was stopped. Platelet count today is 32,000, hemoglobin is 8.6. Hemoglobin has been stable since yesterday. He has end-stage renal disease, was hemodialyzed yesterday. REVIEW OF SYSTEMS: As per HPI. Rest of 12 point of review of systems reviewed, negative. MEDICATIONS: DuoNeb, Brovana 15 mcg inhalation, argatroban drip on hold, aspirin 81 mg daily, Lipitor 40 daily, bacitracin 1 tablet b.i.d., Pulmicort inhalation, PhosLo, Benadryl, TriCor, hydralazine p.r.n., insulin, Synthroid 25 mcg daily, loratadine 10 mg at bedtime, metoprolol 25 mg p.o. b.i.d., multivitamin, Lyrica, Carafate, Brilinta. LABORATORY DATA: White count 4.8, hemoglobin 8.6, hematocrit 26.3, platelets 32. Sodium 134, potassium 4.6, . PHYSICAL EXAMINATION: GENERAL: Comfortable in bed, in no acute distress. VITAL SIGNS: Temperature 98.3, respiratory rate 18 per minute, blood pressure 129/58. Pulse ox is 98% on room air. HEENT: Pallor positive. NECK: No lymphadenopathy. CHEST: Air entry present and equal bilaterally. No added sounds. CARDIOVASCULAR: Tachycardia plus. S1, S2 normal. No murmur. No gallop. ABDOMEN: Soft, nontender, nondistended. EXTREMITIES: Right extremity in the dressing. SPINE: Nontender. SKIN: No petechiae. No rash. Pallor positive. ASSESSMENT AND PLAN: 1. Thrombocytopenia, possible heparin-induced thrombocytopenia. 2. Anemia. 3. GI bleed. 4. End-stage renal disease, on hemodialysis. 5. Diabetes mellitus type 2. 6. Peripheral vascular disease. PLAN: He continues to have loose stools, which are clearing up now. Platelet count is 32,000. We will give 2 units of freeze platelet. Argatroban drip is on hold. If he does not have bleeding all day today, we will resume argatroban in the evening. Hemoglobin and hematocrit has been stable. Anemia, multifactorial due to GI blood loss, iron deficiency, due to end-stage renal disease. We will transfuse PRBC if hemoglobin declines below 8 gm/dL. HIT assay is pending. He is also currently on aspirin and Brilinta. We will continue that for now. Discussed with ICU team. Discussed with the staff nurse. Azalea Morris MD
--- NOTE | 2017-10-24 10:57 | CP.PCM.CON ---
<Jojo Crouch - Last Filed: 10/24/17 17:23> History of Present Illness - History of Present Illness History of Present Illness: Jojo Crouch DO, PGY-2: GI Consult Note for Dr. Ahn 52 year male with a past medical history of CAD with stents, ESRD on HD MWF, s/ p transmetatarsal amputation of the right foot (10/06/17) due to wet gangrene to the right foot and bone exposure. He was on Dual antiplatelet for recent cardiac stent in May. His RLE stump was not healing well and there is intent to perform a R BKA. 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 He was transferred to ICU for agatroban drip but the patient developed diarrhea and blood per rectum. At the time of my examination he reports having 8 episodes of diarrhea yesterday with the last one being a large , blood BM sometime in the AM. The patient reports having no appetite and no further bowel movements. On bedside rectal examination there is black preet appearing clotted blood. Review of his colonoscopy performed in October 2013 showed mild diverticulosis and biopsies negative for microscopic colitis. The patient is going to be receiving platelets per Hematology and Oncology and all of his antiplatelets, anticoagulants have been held since this morning. PMH: As above PSH: right transmetatarsal resection, AV fistula, Allergies: See above PMD: Dr. Kessler Review of Systems - Review of Systems All systems: reviewed and no additional remarkable complaints except (as per HPI ) Past Patient History - Infectious Disease Hx of Infectious Diseases: None - Tetanus Immunizations Tetanus Immunization: Up to Date - Past Medical History & Family History Past Medical History?: Yes - Past Social History Smoking Status: Never Smoked - CARDIAC Hx Cardiac Disorders: Yes (mi) Hx Congestive Heart Failure: Yes Hx Hypercholesterolemia: Yes Hx Hypertension: Yes Hx Pacemaker: Yes (medtronic) Hx Peripheral Edema: Yes (rle +1) Hx Peripheral Vascular Disease: Yes Other/Comment: carotid stenosis, vascular sx av shunt laura, angioplasty, circulatory problems, cellulitis - PULMONARY Hx Respiratory Disorders: Yes Hx Asthma: Yes Hx Bronchitis: Yes Hx Chronic Obstructive Pulmonary Disease (COPD): Yes Hx Pneumonia: Yes Hx Respiratory Tract Infection: Yes Hx Sleep Apnea: Yes (c pap) - NEUROLOGICAL Hx Neurological Disorder: Yes HX Cerebrovascular Accident: Yes (r side weakness) Hx Dizziness: Yes Hx Transient Ischemic Attacks (TIA): Yes Other/Comment: peripheral neuropathy, numbness, visual disturbances - HEENT Hx HEENT Problems: Yes (BILATERAL EYE WITH BLURRY VISION) Hx Cataracts: Yes (HAD SX 05/29/12, r with iol) Hx Epistaxis: Yes Other/Comment: left eye cornea transplant,RENAL RETINOPATHY, glasses, blurred vision - RENAL Date of Last Dialysis Treatment: 10/13/17 - ENDOCRINE/METABOLIC Hx Endocrine Disorders: Yes Hx Diabetes Mellitus Type 1: Yes Hx Diabetes Mellitus Type 2: Yes Hx Hypothyroidism: Yes - HEMATOLOGICAL/ONCOLOGICAL Hx Blood Transfusions: Yes Hx Blood Transfusion Reaction: No - INTEGUMENTARY Hx Dermatological Problems: Yes Other/Comment: generalized multiple skin discolorations and dry wounds over body , rle r ft dressing dry and intact all toes amputated chronic wound ulceration and foul odor heel ulceration gangrrene and bone exposed, rle skin discolorations +1 edema and tightness, inner right ankle1.5cm x 0.5cm deep red dry wound surrounded by pink red skin throbbing pain, healing small wounds to sacrum and b/l buttocks [place],left hand 3rd finger 0/7cm x 0.5cm round dry brown wound, dry brown wound 1.5cm x 1.5cm to ball of left foot not opened - MUSCULOSKELETAL/RHEUMATOLOGICAL Hx Falls: No - GASTROINTESTINAL Hx Gastrointestinal Disorders: Yes (cdif 01/14/17) Hx Gall Bladder Disease: Yes (CHOLECYSTECTOMY) Hx Gastroesophageal Reflux: Yes Hx Liver Failure: Yes (CKD) Hx Pancreatitis: Yes Other/Comment: colon polyps, poor appetite - GENITOURINARY/GYNECOLOGICAL Hx Genitourinary Disorders: Yes (esrd on HD MWF) Hx Hematuria: Yes Hx Prostate Problems: Yes (bph) Hx Urinary Tract Infection: Yes - PSYCHIATRIC Hx Substance Use: No - SURGICAL HISTORY Hx Surgeries: Yes - ANESTHESIA Hx Anesthesia Reactions: No Hx Malignant Hyperthermia: No Meds Allergies/Adverse Reactions: Allergies Allergy/AdvReac Type Severity Reaction Status Date / Time insulin aspart [From Novolog] Allergy Intermediate RASH Verified 10/02/17 19:52 moxifloxacin Allergy Intermediate RASH Verified 10/02/17 19:52 Penicillins Allergy Intermediate RASH Verified 10/02/17 19:52 insulin regular Allergy ITCHING Verified 10/02/17 19:52 [From Novolin R Regular U-100 Insuln] - Medications Medications: Current Medications Albuterol/Ipratropium (Duoneb 3 Mg/0.5 Mg (3 Ml) Ud) 3 ml IH [id number] PRN PRN Reason: Shortness of Breath Last Admin: 10/23/17 13:35 Dose: 3 ml Arformoterol Tartrate (Brovana) 15 mcg IH [id number] [facility] Last Admin: 10/24/17 08:27 Dose: 15 mcg Aspirin (Ecotrin) 81 mg PO DAILY [facility] Last Admin: 10/22/17 09:33 Dose: 81 mg Atorvastatin Calcium (Lipitor) 40 mg PO DIN [facility] Last Admin: 10/23/17 17:11 Dose: 40 mg Bacitracin (Bacitracin) 1 ea TOP BID [facility] Last Admin: 10/23/17 17:10 Dose: Not Given Budesonide (Pulmicort Respules) 0.5 mg IH [id number] [facility] Last Admin: 10/24/17 08:27 Dose: 0.5 mg Calcium Acetate (Phoslo) 1,334 mg PO WM [facility] Last Admin: 10/24/17 09:29 Dose: 1,334 mg Diphenhydramine HCl (Benadryl) 25 mg PO HS PRN PRN Reason: Insomnia Last Admin: 10/23/17 21:35 Dose: 25 mg Ergocalciferol (Drisdol 50,000 Intl Units Cap) 1 cap PO WED [facility] Last Admin: 10/18/17 12:32 Dose: 1 cap Fenofibrate (Tricor) 145 mg PO DAILY [facility] Last Admin: 10/24/17 09:47 Dose: 145 mg Hydralazine HCl (Apresoline) 25 mg PO BID [facility] Last Admin: 10/21/17 17:04 Dose: Not Given Micafungin Sodium 100 mg/ (Sodium Chloride) 100 mls @ 100 mls/hr IV DAILY [facility] PRN Reason: Protocol Stop: 10/26/17 10:01 Last Admin: 10/24/17 09:41 Dose: 100 mls/hr Argatroban 250 mg/ Dextrose 252.5 mls @ 10.5 mls/hr IV .Q24H CARLOS; 2 MCG/KG/MIN PRN Reason: Protocol Last Admin: 10/23/17 17:08 Dose: 10.5 mls/hr Insulin Human NPH (Humulin N) 20 units SC QPM [facility] Last Admin: 10/23/17 19:09 Dose: Not Given Insulin Human Regular (Humulin R High) 0 units SC ACHS [facility] PRN Reason: Protocol Last Admin: 10/24/17 09:12 Dose: Not Given Latanoprost (Xalatan Opht) 0 ml OU HS [facility] Last Admin: 10/23/17 22:01 Dose: 2.5 ml Levothyroxine Sodium (Synthroid) 25 mcg PO 0600 [facility] Last Admin: 10/24/17 05:23 Dose: 25 mcg Loratadine (Claritin) 10 mg PO [facility] Last Admin: 10/23/17 21:35 Dose: 10 mg Metoprolol Tartrate (Lopressor) 25 mg PO BID [facility] Last Admin: 10/24/17 09:30 Dose: 25 mg Montelukast Sodium (Singulair) 10 mg PO [facility] Last Admin: 10/23/17 21:35 Dose: 10 mg Multivitamins (Thera Tab) 1 tab PO DAILY [facility] Last Admin: 10/24/17 09:29 Dose: 1 tab Salmeterol Xinafoate /Fluticaso [Advair Hfa 230-21] 1 puff IH BID [facility] Last Admin: 10/23/17 17:13 Dose: Not Given Clema-2-Qask Ethyl Esters (Lovaza) 2 gm PO BID [facility] Last Admin: 10/24/17 09:30 Dose: 2 gm Ondansetron HCl (Zofran Inj) 4 mg IVP Q6H PRN PRN Reason: Nausea/Vomiting Last Admin: 10/23/17 06:48 Dose: 4 mg Pregabalin (Lyrica) 50 mg PO [facility] Last Admin: 10/23/17 21:35 Dose: 50 mg Sevelamer HCl (Renagel) 1,600 mg PO WM [facility] Last Admin: 10/24/17 09:47 Dose: 1,600 mg Sodium Chloride ([place] Nasal [place]) 0 ml NS Q2H PRN PRN Reason: Nasal congestion Sucralfate (Carafate Oral Susp) 1 gm PO 0600,1600 [facility] Last Admin: 10/24/17 05:23 Dose: 1 gm Tamsulosin HCl (Flomax) 0.4 mg PO [facility] Last Admin: 10/23/17 21:35 Dose: 0.4 mg Ticagrelor (Brilinta) 90 mg PO BID [facility] Last Admin: 10/19/17 17:13 Dose: 90 mg Physical Exam - Constitutional Appears: Chronically Ill - Head Exam Head Exam: ATRAUMATIC, NORMOCEPHALIC - Eye Exam Eye Exam: Conjunctival injection. absent: Scleral icterus - ENT Exam ENT Exam: Mucous Membranes Moist - Neck Exam Neck exam: Positive for: Normal Inspection - Respiratory Exam Respiratory Exam: NORMAL BREATHING PATTERN. absent: Accessory Muscle Use - Cardiovascular Exam Cardiovascular Exam: +S1, +S2. absent: Tachycardia - GI/Abdominal Exam GI & Abdominal Exam: Soft. absent: Distended, Guarding, Rebound, Tenderness - Rectal Exam Additional comments: black preet appearance of clotted blood - Extremities Exam Extremities exam: Positive for: normal inspection. Negative for: calf tenderness - Neurological Exam Neurological exam: Alert, Oriented x3 - Psychiatric Exam Psychiatric exam: Normal Affect, Normal Mood Results - Vital Signs Recent Vital Signs: Last Vital Signs Temp 98.3 F 10/23/17 17:00 Pulse 94 H 10/24/17 09:30 Resp 11 L 10/24/17 07:06 BP 129/58 L 10/24/17 06:43 Pulse Ox 98 10/24/17 06:43 - Labs Result Diagrams: 10/24/17 16:05 10/24/17 07:00 Labs: Laboratory Results - last 24 hr 10/23/17 10/23/17 10/23/17 01:50 06:37 13:03 WBC RBC Hgb Hct MCV MCH MCHC RDW Plt Count MPV Gran % Lymph % (Auto) [place] % (Auto) Eos % (Auto) Baso % (Auto) Gran # Lymph # (Auto) [place] # (Auto) Eos # (Auto) Baso # (Auto) APTT Sodium Potassium Chloride Carbon Dioxide Anion Gap BUN Creatinine Est GFR ( Amer) Est GFR (Non-Af Amer) POC Glucose (mg/dL) 132 H 130 H 87 Random Glucose Calcium Total Bilirubin AST ALT Alkaline Phosphatase Total Protein Albumin Globulin Albumin/Globulin Ratio Stool Occult Blood Blood Type Antibody Screen Crossmatch BBK History Checked 10/23/17 10/23/17 10/23/17 15:30 16:44 19:54 WBC RBC Hgb Hct MCV MCH MCHC RDW Plt Count MPV Gran % Lymph % (Auto) [place] % (Auto) Eos % (Auto) Baso % (Auto) Gran # Lymph # (Auto) [place] # (Auto) Eos # (Auto) Baso # (Auto) APTT 80.4 H Sodium Potassium Chloride Carbon Dioxide Anion Gap BUN Creatinine Est GFR ( Amer) Est GFR (Non-Af Amer) POC Glucose (mg/dL) 127 H Random Glucose Calcium Total Bilirubin AST ALT Alkaline Phosphatase Total Protein Albumin Globulin Albumin/Globulin Ratio Stool Occult Blood Positive H Blood Type Antibody Screen Crossmatch BBK History Checked 10/23/17 10/23/17 10/23/17 19:54 21:03 21:03 WBC 5.7 D 6.1 RBC 2.86 L 2.88 L Hgb 8.4 L 8.6 L Hct 26.2 L 26.6 L MCV 91.6 92.4 MCH 29.4 29.9 MCHC 32.1 32.3 RDW 16.7 H 16.8 H Plt Count 32 L* 32 L* MPV 11.6 H 12.0 H Gran % Lymph % (Auto) [place] % (Auto) Eos % (Auto) Baso % (Auto) Gran # Lymph # (Auto) [place] # (Auto) Eos # (Auto) Baso # (Auto) APTT Sodium Potassium Chloride Carbon Dioxide Anion Gap BUN Creatinine Est GFR ( Amer) Est GFR (Non-Af Amer) POC Glucose (mg/dL) Random Glucose Calcium Total Bilirubin AST ALT Alkaline Phosphatase Total Protein Albumin Globulin Albumin/Globulin Ratio Stool Occult Blood Blood Type B POSITIVE Antibody Screen Negative Crossmatch See Detail BBK History Checked Patient has bt 10/23/17 10/24/17 10/24/17 21:36 01:14 07:00 WBC 5.2 RBC 2.74 L Hgb 8.2 L Hct 25.3 L MCV 92.3 MCH 29.9 MCHC 32.4 RDW 17.0 H Plt Count 31 L* MPV 11.6 H Gran % Lymph % (Auto) [place] % (Auto) Eos % (Auto) Baso % (Auto) Gran # Lymph # (Auto) [place] # (Auto) Eos # (Auto) Baso # (Auto) APTT Sodium 134 Potassium 4.6 Chloride 100 Carbon Dioxide 25 Anion Gap 14 BUN 36 H Creatinine 4.6 H Est GFR ( Amer) 16 Est GFR (Non-Af Amer) 13 POC Glucose (mg/dL) 185 H Random Glucose 139 H Calcium 8.0 L Total Bilirubin 1.0 AST 47 ALT 1 L Alkaline Phosphatase 60 Total Protein 6.6 Albumin 2.6 L Globulin 4.0 Albumin/Globulin Ratio 0.7 L Stool Occult Blood Blood Type Antibody Screen Crossmatch BBK History Checked 10/24/17 07:00 WBC 4.8 RBC 2.90 L Hgb 8.6 L Hct 26.3 L MCV 90.7 MCH 29.7 MCHC 32.7 RDW 16.8 H Plt Count 32 L* MPV Gran % 52.1 Lymph % (Auto) 29.3 [place] % (Auto) 15.2 H Eos % (Auto) 3.2 Baso % (Auto) 0.2 Gran # 2.48 Lymph # (Auto) 1.4 [place] # (Auto) 0.7 H Eos # (Auto) 0.2 Baso # (Auto) 0.01 APTT Sodium Potassium Chloride Carbon Dioxide Anion Gap BUN Creatinine Est GFR ( Amer) Est GFR (Non-Af Amer) POC Glucose (mg/dL) Random Glucose Calcium Total Bilirubin AST ALT Alkaline Phosphatase Total Protein Albumin Globulin Albumin/Globulin Ratio Stool Occult Blood Blood Type Antibody Screen Crossmatch BBK History Checked Assessment & Plan - Assessment and Plan (Free Text) Assessment: 52 year male with a past medical history of CAD with stents, ESRD on HD MWF, s/ p transmetatarsal amputation of the right foot (10/06/17), on Heparin for DVT prophylaxis who was recently found to drop in his platelets, 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 His argatroban drip, aspirin, and Brillinta were held. GI was consulted. He does have clotted blood seen in the rectal vault. We ordered a GI bleeding scan with flow which showed active, rectal bleeding. We will keep the patient NPO, and perform an upper endoscopy and unprepped, flexible sigmoidoscopy tomorrow afternoon. Case was reviewed and discussed with attending physician, Dr. Ahn - Date & Time Date: 10/24/17 Time: 11:00 <Jacquelin Ahn V - Last Filed: 10/24/17 21:54> Meds - Medications Medications: Current Medications Albuterol/Ipratropium (Duoneb 3 Mg/0.5 Mg (3 Ml) Ud) 3 ml IH [id number] PRN PRN Reason: Shortness of Breath Last Admin: 10/23/17 13:35 Dose: 3 ml Arformoterol Tartrate (Brovana) 15 mcg IH [id number] [facility] Last Admin: 10/24/17 20:48 Dose: 15 mcg Aspirin (Ecotrin) 81 mg PO DAILY [facility] Last Admin: 10/22/17 09:33 Dose: 81 mg Atorvastatin Calcium (Lipitor) 40 mg PO DIN [facility] Last Admin: 10/24/17 17:44 Dose: 40 mg Bacitracin (Bacitracin) 1 ea TOP BID [facility] Last Admin: 10/23/17 17:10 Dose: Not Given Budesonide (Pulmicort Respules) 0.5 mg IH [id number] [facility] Last Admin: 10/24/17 20:49 Dose: 0.5 mg Calcium Acetate (Phoslo) 1,334 mg PO WM [facility] Last Admin: 10/24/17 17:40 Dose: 1,334 mg Diphenhydramine HCl (Benadryl) 25 mg PO HS PRN PRN Reason: Insomnia Last Admin: 10/23/17 21:35 Dose: 25 mg Ergocalciferol (Drisdol 50,000 Intl Units Cap) 1 cap PO WED [facility] Last Admin: 10/18/17 12:32 Dose: 1 cap Fenofibrate (Tricor) 145 mg PO DAILY [facility] Last Admin: 10/24/17 09:47 Dose: 145 mg Hydralazine HCl (Apresoline) 25 mg PO BID [facility] Last Admin: 10/21/17 17:04 Dose: Not Given Micafungin Sodium 100 mg/ (Sodium Chloride) 100 mls @ 100 mls/hr IV DAILY [facility] PRN Reason: Protocol Stop: 10/26/17 10:01 Last Admin: 10/24/17 09:41 Dose: 100 mls/hr Argatroban 250 mg/ Dextrose 252.5 mls @ 10.5 mls/hr IV .Q24H [facility]; 2 MCG/KG/MIN PRN Reason: Protocol Last Admin: 10/23/17 17:08 Dose: 10.5 mls/hr Insulin Human NPH (Humulin N) 20 units SC QPM [facility] Last Admin: 10/23/17 19:09 Dose: Not Given Insulin Human Regular (Humulin R High) 0 units SC ACHS [facility] PRN Reason: Protocol Last Admin: 10/24/17 17:43 Dose: 4 units Latanoprost (Xalatan Opht) 0 ml OU HS [facility] Last Admin: 10/23/17 22:01 Dose: 2.5 ml Levothyroxine Sodium (Synthroid) 25 mcg PO 0600 [facility] Last Admin: 10/24/17 05:23 Dose: 25 mcg Loratadine (Claritin) 10 mg PO HS [facility] Last Admin: 10/23/17 21:35 Dose: 10 mg Metoprolol Tartrate (Lopressor) 25 mg PO BID [facility] Last Admin: 10/24/17 17:40 Dose: 25 mg Montelukast Sodium (Singulair) 10 mg PO [facility] Last Admin: 10/23/17 21:35 Dose: 10 mg Multivitamins (Thera Tab) 1 tab PO DAILY [facility] Last Admin: 10/24/17 09:29 Dose: 1 tab Salmeterol Xinafoate /Fluticaso [Advair Hfa 230-21] 1 puff IH BID [facility] Last Admin: 10/24/17 18:02 Dose: Not Given Tvqga-1-Oxgn Ethyl Esters (Lovaza) 2 gm PO BID [facility] Last Admin: 10/24/17 09:30 Dose: 2 gm Ondansetron HCl (Zofran Inj) 4 mg IVP Q6H PRN PRN Reason: Nausea/Vomiting Last Admin: 10/23/17 06:48 Dose: 4 mg Oxycodone/Acetaminophen (Percocet 5/325 Mg Tab) 1 tab PO BID PRN PRN Reason: pain Stop: 10/27/17 19:10 Last Admin: 10/24/17 19:35 Dose: 1 tab Oxycodone/Acetaminophen (Percocet 5/325 Mg Tab) 2 tab PO Q4H PRN PRN Reason: foot pain Stop: 10/27/17 19:13 Pregabalin (Lyrica) 50 mg PO [facility] Last Admin: 10/23/17 21:35 Dose: 50 mg Sevelamer HCl (Renagel) 1,600 mg PO [facility] Last Admin: 10/24/17 18:02 Dose: Not Given Sodium Chloride ([place] Nasal [place]) 0 ml NS Q2H PRN PRN Reason: Nasal congestion Sucralfate (Carafate Oral Susp) 1 gm PO 0600,1600 [facility] Last Admin: 10/24/17 17:41 Dose: 1 gm Tamsulosin HCl (Flomax) 0.4 mg PO HS [facility] Last Admin: 10/23/17 21:35 Dose: 0.4 mg Ticagrelor (Brilinta) 90 mg PO BID [facility] Last Admin: 10/19/17 17:13 Dose: 90 mg Results - Vital Signs Recent Vital Signs: Last Vital Signs Temp 97.6 F 10/24/17 12:00 Pulse 61 10/24/17 21:30 Resp 11 L 10/24/17 21:30 BP 103/51 L 10/24/17 20:59 Pulse Ox 100 10/24/17 21:30 - Labs Result Diagrams: 10/24/17 16:05 10/24/17 07:00 Labs: Laboratory Results - last 24 hr 10/23/17 10/23/17 10/23/17 13:03 16:44 21:03 WBC RBC Hgb Hct MCV MCH MCHC RDW Plt Count MPV Gran % Lymph % (Auto) [place] % (Auto) Eos % (Auto) Baso % (Auto) Gran # Lymph # (Auto) [place] # (Auto) Eos # (Auto) Baso # (Auto) Platelet Evaluation Sodium Potassium Chloride Carbon Dioxide Anion Gap BUN Creatinine Est GFR ( Amer) Est GFR (Non-Af Amer) POC Glucose (mg/dL) 87 127 H Random Glucose Calcium Total Bilirubin AST ALT Alkaline Phosphatase Total Protein Albumin Globulin Albumin/Globulin Ratio Blood Type B POSITIVE Antibody Screen Negative Crossmatch See Detail BBK History Checked Patient has bt 10/23/17 10/24/17 10/24/17 21:36 01:14 07:00 WBC 5.2 RBC 2.74 L Hgb 8.2 L Hct 25.3 L MCV 92.3 MCH 29.9 MCHC 32.4 RDW 17.0 H Plt Count 31 L* MPV 11.6 H Gran % Lymph % (Auto) [place] % (Auto) Eos % (Auto) Baso % (Auto) Gran # Lymph # (Auto) [place] # (Auto) Eos # (Auto) Baso # (Auto) Platelet Evaluation Sodium 134 Potassium 4.6 Chloride 100 Carbon Dioxide 25 Anion Gap 14 BUN 36 H Creatinine 4.6 H Est GFR ( Amer) 16 Est GFR (Non-Af Amer) 13 POC Glucose (mg/dL) 185 H Random Glucose 139 H Calcium 8.0 L Total Bilirubin 1.0 AST 47 ALT 1 L Alkaline Phosphatase 60 Total Protein 6.6 Albumin 2.6 L Globulin 4.0 Albumin/Globulin Ratio 0.7 L Blood Type Antibody Screen Crossmatch BBK History Checked 10/24/17 10/24/17 10/24/17 07:00 07:29 11:20 WBC 4.8 RBC 2.90 L Hgb 8.6 L Hct 26.3 L MCV 90.7 MCH 29.7 MCHC 32.7 RDW 16.8 H Plt Count 32 L* MPV Gran % 52.1 Lymph % (Auto) 29.3 [place] % (Auto) 15.2 H Eos % (Auto) 3.2 Baso % (Auto) 0.2 Gran # 2.48 Lymph # (Auto) 1.4 [place] # (Auto) 0.7 H Eos # (Auto) 0.2 Baso # (Auto) 0.01 Platelet Evaluation Low Sodium Potassium Chloride Carbon Dioxide Anion Gap BUN Creatinine Est GFR ( Amer) Est GFR (Non-Af Amer) POC Glucose (mg/dL) 172 H 194 H Random Glucose Calcium Total Bilirubin AST ALT Alkaline Phosphatase Total Protein Albumin Globulin Albumin/Globulin Ratio Blood Type Antibody Screen Crossmatch BBK History Checked 10/24/17 10/24/17 16:05 16:26 WBC RBC Hgb 8.1 L Hct 25.1 L MCV MCH MCHC RDW Plt Count MPV Gran % Lymph % (Auto) [place] % (Auto) Eos % (Auto) Baso % (Auto) Gran # Lymph # (Auto) [place] # (Auto) Eos # (Auto) Baso # (Auto) Platelet Evaluation Sodium Potassium Chloride Carbon Dioxide Anion Gap BUN Creatinine Est GFR ( Amer) Est GFR (Non-Af Amer) POC Glucose (mg/dL) 220 H Random Glucose Calcium Total Bilirubin AST ALT Alkaline Phosphatase Total Protein Albumin Globulin Albumin/Globulin Ratio Blood Type Antibody Screen Crossmatch BBK History Checked Attending/Attestation - Attestation I have personally seen and examined this patient.: Yes I have fully participated in the care of the patient.: Yes I have reviewed all pertinent clinical information: Yes Notes (Text): This is an addendum to GI consult report dictated by the Cardiovascular Lab Director.The patient was seen and evaluated earlier. Medical records, lab studies, imagings were reviewed. Last 24 hours events reviewed. Agreed with the above treatment plan as outlined in Cardiovascular Lab Director 's notes with the addition of the following Bleeding scan was reviewed some activity in the rectum was not. No further significant bleeding Patient did have episodes of dark loose bowel movements suggestive of possible melena. Increased activity in the rectum noticing the bleeding scan may not be field representative of the area clinically picture. Patient had LVAD PTCA on 06/12/2017. He had been on aspirin and Brilinta has he had Platelet resistance to Plavix . Patient did have a drop in platelets while on prophylactic heparin dose suggestive of possible heat, final assay pending. Patient was on Agratoban Drip which has been discontinued now. Patient need to be on antiplatelet therapy and also possibly anticoagulation. Would need at least limited GI evaluation find out the exact cause. In view of the dark stool upper GI etiology has to be ruled out. Patient did receive platelet transfusion. Hemoglobin is stable . The anemia could be multifactorial combination of renal faillure and GI bleeding should be taken Into consideration. Another problem is low platelets in the setting of GI bleeding. Would not contemplate high-dose PPI drip. Would start the patient on CarafateAnd low- dose PPI Patient be scheduled for flexible sigmoidoscopy and EGD tomorrow. We will discuss with environmental communications specialist, Dr. Higgins, Dr. pina, in a.m. 10/24/17 21:44
[2017-10-24 12:30] LABS: PLATELET ESTIMATE LOW (NORMAL)
--- NOTE | 2017-10-24 12:33 | CP.CCUPN ---
<Amee Byers - Last Filed: 10/24/17 12:29> CCU Subjective - Physician Review Events Since Last Encounter (Free Text): Amee Byers, PGY-1 ICU Progress Note Patient seen and examined at bedside. No acute events overnight. Slept well and good appetite. Given percucet for pain overnight. Had bloody BM and GI on consult. Argatoban, ASA and brilinta are being held. Pending transfer to telemetry today. Denies CP, SOB, abdominal pain, back pain and urinary complaints. 12 point ROS noted here, otherwise negative. CCU Objective - Vital Signs / Intake & Output Vital Signs (Last 4 hours): Vital Signs Pulse 10/24/17 09:30 94 H Intake and Output (Last 8hrs): Intake & Output 10/23/17 10/24/17 10/24/17 22:59 06:59 14:59 Intake Total 341 Balance 341 Intake: IV 21 Argatroban 21 Oral 320 Other: # Bowel Movements 2 - Physical Exam Head: Positive for: Atraumatic, Normocephalic Pupils: Positive for: PERRL Extroacular Muscles: Positive for: EOMI Conjunctiva: Positive for: Normal Mouth: Positive for: Moist Mucous Membranes Neck: Positive for: Normal Range of Motion Respiratory/Chest: Positive for: Clear to Auscultation, Good Air Exchange. Negative for: Respiratory Distress, Accessory Muscle Use Cardiovascular: Positive for: Regular Rate and Rhythm, Normal S1, S2. Negative for: Murmurs Abdomen: Negative for: Tenderness, Distention, Peritoneal Signs Back: Positive for: Normal Inspection Upper Extremity: Positive for: Normal Inspection. Negative for: Cyanosis, Edema Lower Extremity: Positive for: Other (Right foot: black/brown color to the base of the stump. Currently dressed in wraps with no gross blood or pus leakage) Neurological: Positive for: GCS=15, CN II-XII Intact, Speech Normal Skin: Positive for: Warm, Dry, Normal Color. Negative for: Rashes Psychiatric: Positive for: Alert, Oriented x 3, Normal Insight, Normal Concentration - Medications Active Medications: Active Medications Generic Name Dose Route Start Last Admin Trade Name Freq PRN Reason Stop Dose Admin Albuterol/Ipratropium 3 ml 10/16/17 16:25 10/23/17 13:35 Duoneb 3 Mg/0.5 Mg (3 Ml) Ud IH 3 ml [id number] PRN Administration Shortness of Breath Arformoterol Tartrate 15 mcg 10/19/17 20:00 10/24/17 08:27 Brovana IH 15 mcg [id number] CARLOS Administration Aspirin 81 mg 10/17/17 10:00 10/22/17 09:33 Ecotrin PO 81 mg DAILY CARLOS Administration Atorvastatin Calcium 40 mg 10/16/17 17:00 10/23/17 17:11 Lipitor PO 40 mg DIN CARLOS Administration Bacitracin 1 ea 10/20/17 10:00 10/23/17 17:10 Bacitracin TOP Not Given BID CARLOS Budesonide 0.5 mg 10/19/17 20:00 10/24/17 08:27 Pulmicort Respules IH 0.5 mg [id number] CARLOS Administration Calcium Acetate 1,334 mg 10/16/17 17:00 10/24/17 09:29 Phoslo PO 1,334 mg WM CARLOS Administration Diphenhydramine HCl 25 mg 10/16/17 16:25 10/23/17 21:35 Benadryl PO 25 mg HS PRN Administration Insomnia Ergocalciferol 1 cap 10/18/17 10:00 10/18/17 12:32 Drisdol 50,000 Intl Units Cap PO 1 cap WED CARLOS Administration Fenofibrate 145 mg 10/17/17 10:00 10/24/17 09:47 Tricor PO 145 mg DAILY CARLOS Administration Hydralazine HCl 25 mg 10/16/17 18:00 10/21/17 17:04 Apresoline PO Not Given BID CARLOS Micafungin Sodium 100 mg/ 100 mls @ 100 mls/hr 10/18/17 10:00 10/24/17 09:41 Sodium Chloride IV 10/26/17 10:01 100 mls/hr DAILY CARLOS Administration Protocol Argatroban 250 mg/ Dextrose 252.5 mls @ 10.5 mls/hr 10/23/17 11:30 10/23/17 17:08 IV 10.5 mls/hr .Q24H CARLOS Administration Protocol 2 MCG/KG/MIN Insulin Human NPH 20 units 10/16/17 18:00 10/23/17 19:09 Humulin N SC Not Given QPM CARLOS Insulin Human Regular 0 units 10/16/17 22:00 10/24/17 09:12 Humulin R High SC Not Given ACHS CARLOS Protocol Latanoprost 0 ml 10/16/17 22:00 10/23/17 22:01 Xalatan Opht OU 2.5 ml HS CARLOS Administration Levothyroxine Sodium 25 mcg 10/17/17 06:00 10/24/17 05:23 Synthroid PO 25 mcg 0600 CARLOS Administration Loratadine 10 mg 10/16/17 22:00 10/23/17 21:35 Claritin PO 10 mg HS CARLOS Administration Metoprolol Tartrate 25 mg 10/17/17 10:00 10/24/17 09:30 Lopressor PO 25 mg BID CARLOS Administration Montelukast Sodium 10 mg 10/16/17 22:00 10/23/17 21:35 Singulair PO 10 mg HS CARLOS Administration Multivitamins 1 tab 10/17/17 10:00 10/24/17 09:29 Thera Tab PO 1 tab DAILY CARLOS Administration Salmeterol Xinafoate 1 puff 10/16/17 18:00 10/23/17 17:13 /Fluticaso [Advair IH Not Given Hfa 230-21] BID CARLOS Athvm-6-Cosi Ethyl Esters 2 gm 10/16/17 18:00 10/24/17 09:30 Lovaza PO 2 gm BID CARLOS Administration Ondansetron HCl 4 mg 10/22/17 11:53 10/23/17 06:48 Zofran Inj IVP 4 mg Q6H PRN Administration Nausea/Vomiting Pregabalin 50 mg 10/16/17 22:00 10/23/17 21:35 Lyrica PO 50 mg HS CARLOS Administration Sevelamer HCl 1,600 mg 10/16/17 17:00 10/24/17 09:47 Renagel PO 1,600 mg WM CARLOS Administration Sodium Chloride 0 ml 10/16/17 16:25 [place] Nasal [place] NS Q2H PRN Nasal congestion Sucralfate 1 gm 10/23/17 16:00 10/24/17 05:23 Carafate Oral Susp PO 1 gm 0600,1600 CARLOS Administration Tamsulosin HCl 0.4 mg 10/16/17 22:00 10/23/17 21:35 Flomax PO 0.4 mg HS CARLOS Administration Ticagrelor 90 mg 10/18/17 18:00 10/19/17 17:13 Brilinta PO 90 mg BID CARLOS Administration - Patient Studies Lab Studies: Microbiology Studies 10/19/17 11:40 Blood Culture - Final Blood NO GROWTH AFTER 5 DAYS Gram Stain - Final TEST NOT PERFORMED 10/19/17 11:00 Blood Culture - Final Blood NO GROWTH AFTER 5 DAYS Gram Stain - Final TEST NOT PERFORMED Lab Studies 10/24/17 10/24/17 10/24/17 Range/Units 07:29 07:00 07:00 WBC 4.8 (4.5-11.0) 10^3/ul RBC 2.90 L (3.5-6.1) 10^6/uL Hgb 8.6 L (14.0-18.0) g/dL Hct 26.3 L (42.0-52.0) % MCV 90.7 (80.0-105.0) fl MCH 29.7 (25.0-35.0) pg MCHC 32.7 (31.0-37.0) g/dl RDW 16.8 H (11.5-14.5) % Plt Count 32 L* (120.0-450.0) 10^3/uL MPV (7.0-11.0) fl Gran % 52.1 (50.0-68.0) % Lymph % (Auto) 29.3 (22.0-35.0) % [place] % (Auto) 15.2 H (1.0-6.0) % Eos % (Auto) 3.2 (1.5-5.0) % Baso % (Auto) 0.2 (0.0-3.0) % Gran # 2.48 (1.4-6.5) Lymph # (Auto) 1.4 (1.2-3.4) [place] # (Auto) 0.7 H (0.1-0.6) Eos # (Auto) 0.2 (0.0-0.7) Baso # (Auto) 0.01 (0.0-2.0) K/mm3 APTT (25.1-36.5) Seconds Sodium 134 (132-148) mmol/L Potassium 4.6 (3.6-5.0) mmol/L Chloride 100 (98-107) mmol/L Carbon Dioxide 25 (21-33) mmol/L Anion Gap 14 (10-20) BUN 36 H (7-21) mg/dL Creatinine 4.6 H (0.8-1.5) mg/dl Est GFR ( Amer) 16 Est GFR (Non-Af Amer) 13 POC Glucose (mg/dL) 172 H (65-110) mg/dL Random Glucose 139 H (70-110) mg/dL Calcium 8.0 L (8.4-10.5) mg/dL Total Bilirubin 1.0 (0.2-1.3) mg/dL AST 47 (17-59) U/L ALT 1 L (7-56) U/L Alkaline Phosphatase 60 (38-126) U/L Total Protein 6.6 (5.8-8.3) g/dL Albumin 2.6 L (3.0-4.8) g/dL Globulin 4.0 gm/dL Albumin/Globulin Ratio 0.7 L (1.1-1.8) Stool Occult Blood (NEGATIVE) Blood Type Antibody Screen Crossmatch BBK History Checked 10/24/17 10/23/17 10/23/17 Range/Units 01:14 21:36 21:03 WBC 5.2 6.1 (4.5-11.0) 10^3/ul RBC 2.74 L 2.88 L (3.5-6.1) 10^6/uL Hgb 8.2 L 8.6 L (14.0-18.0) g/dL Hct 25.3 L 26.6 L (42.0-52.0) % MCV 92.3 92.4 (80.0-105.0) fl MCH 29.9 29.9 (25.0-35.0) pg MCHC 32.4 32.3 (31.0-37.0) g/dl RDW 17.0 H 16.8 H (11.5-14.5) % Plt Count 31 L* 32 L* (120.0-450.0) 10^3/uL MPV 11.6 H 12.0 H (7.0-11.0) fl Gran % (50.0-68.0) % Lymph % (Auto) (22.0-35.0) % [place] % (Auto) (1.0-6.0) % Eos % (Auto) (1.5-5.0) % Baso % (Auto) (0.0-3.0) % Gran # (1.4-6.5) Lymph # (Auto) (1.2-3.4) [place] # (Auto) (0.1-0.6) Eos # (Auto) (0.0-0.7) Baso # (Auto) (0.0-2.0) K/mm3 APTT (25.1-36.5) Seconds Sodium (132-148) mmol/L Potassium (3.6-5.0) mmol/L Chloride (98-107) mmol/L Carbon Dioxide (21-33) mmol/L Anion Gap (10-20) BUN (7-21) mg/dL Creatinine (0.8-1.5) mg/dl Est GFR ( Amer) Est GFR (Non-Af Amer) POC Glucose (mg/dL) 185 H (65-110) mg/dL Random Glucose (70-110) mg/dL Calcium (8.4-10.5) mg/dL Total Bilirubin (0.2-1.3) mg/dL AST (17-59) U/L ALT (7-56) U/L Alkaline Phosphatase (38-126) U/L Total Protein (5.8-8.3) g/dL Albumin (3.0-4.8) g/dL Globulin gm/dL Albumin/Globulin Ratio (1.1-1.8) Stool Occult Blood (NEGATIVE) Blood Type Antibody Screen Crossmatch BBK History Checked 10/23/17 10/23/17 10/23/17 Range/Units 21:03 19:54 19:54 WBC 5.7 D (4.5-11.0) 10^3/ul RBC 2.86 L (3.5-6.1) 10^6/uL Hgb 8.4 L (14.0-18.0) g/dL Hct 26.2 L (42.0-52.0) % MCV 91.6 (80.0-105.0) fl MCH 29.4 (25.0-35.0) pg MCHC 32.1 (31.0-37.0) g/dl RDW 16.7 H (11.5-14.5) % Plt Count 32 L* (120.0-450.0) 10^3/uL MPV 11.6 H (7.0-11.0) fl Gran % (50.0-68.0) % Lymph % (Auto) (22.0-35.0) % [place] % (Auto) (1.0-6.0) % Eos % (Auto) (1.5-5.0) % Baso % (Auto) (0.0-3.0) % Gran # (1.4-6.5) Lymph # (Auto) (1.2-3.4) [place] # (Auto) (0.1-0.6) Eos # (Auto) (0.0-0.7) Baso # (Auto) (0.0-2.0) K/mm3 APTT 80.4 H (25.1-36.5) Seconds Sodium (132-148) mmol/L Potassium (3.6-5.0) mmol/L Chloride (98-107) mmol/L Carbon Dioxide (21-33) mmol/L Anion Gap (10-20) BUN (7-21) mg/dL Creatinine (0.8-1.5) mg/dl Est GFR ( Amer) Est GFR (Non-Af Amer) POC Glucose (mg/dL) (65-110) mg/dL Random Glucose (70-110) mg/dL Calcium (8.4-10.5) mg/dL Total Bilirubin (0.2-1.3) mg/dL AST (17-59) U/L ALT (7-56) U/L Alkaline Phosphatase (38-126) U/L Total Protein (5.8-8.3) g/dL Albumin (3.0-4.8) g/dL Globulin gm/dL Albumin/Globulin Ratio (1.1-1.8) Stool Occult Blood (NEGATIVE) Blood Type B POSITIVE Antibody Screen Negative Crossmatch See Detail BBK History Checked Patient has bt 10/23/17 10/23/17 10/23/17 Range/Units 16:44 15:30 13:03 WBC (4.5-11.0) 10^3/ul RBC (3.5-6.1) 10^6/uL Hgb (14.0-18.0) g/dL Hct (42.0-52.0) % MCV (80.0-105.0) fl MCH (25.0-35.0) pg MCHC (31.0-37.0) g/dl RDW (11.5-14.5) % Plt Count (120.0-450.0) 10^3/uL MPV (7.0-11.0) fl Gran % (50.0-68.0) % Lymph % (Auto) (22.0-35.0) % [place] % (Auto) (1.0-6.0) % Eos % (Auto) (1.5-5.0) % Baso % (Auto) (0.0-3.0) % Gran # (1.4-6.5) Lymph # (Auto) (1.2-3.4) [place] # (Auto) (0.1-0.6) Eos # (Auto) (0.0-0.7) Baso # (Auto) (0.0-2.0) K/mm3 APTT (25.1-36.5) Seconds Sodium (132-148) mmol/L Potassium (3.6-5.0) mmol/L Chloride (98-107) mmol/L Carbon Dioxide (21-33) mmol/L Anion Gap (10-20) BUN (7-21) mg/dL Creatinine (0.8-1.5) mg/dl Est GFR ( Amer) Est GFR (Non-Af Amer) POC Glucose (mg/dL) 127 H 87 (65-110) mg/dL Random Glucose (70-110) mg/dL Calcium (8.4-10.5) mg/dL Total Bilirubin (0.2-1.3) mg/dL AST (17-59) U/L ALT (7-56) U/L Alkaline Phosphatase (38-126) U/L Total Protein (5.8-8.3) g/dL Albumin (3.0-4.8) g/dL Globulin gm/dL Albumin/Globulin Ratio (1.1-1.8) Stool Occult Blood Positive H (NEGATIVE) Blood Type Antibody Screen Crossmatch BBK History Checked Laboratory Results - last 24 hr 10/23/17 10/23/17 10/23/17 13:03 15:30 16:44 WBC RBC Hgb Hct MCV MCH MCHC RDW Plt Count MPV Gran % Lymph % (Auto) [place] % (Auto) Eos % (Auto) Baso % (Auto) Gran # Lymph # (Auto) [place] # (Auto) Eos # (Auto) Baso # (Auto) APTT Sodium Potassium Chloride Carbon Dioxide Anion Gap BUN Creatinine Est GFR ( Amer) Est GFR (Non-Af Amer) POC Glucose (mg/dL) 87 127 H Random Glucose Calcium Total Bilirubin AST ALT Alkaline Phosphatase Total Protein Albumin Globulin Albumin/Globulin Ratio Stool Occult Blood Positive H Blood Type Antibody Screen Crossmatch BBK History Checked 10/23/17 10/23/17 10/23/17 19:54 19:54 21:03 WBC 5.7 D RBC 2.86 L Hgb 8.4 L Hct 26.2 L MCV 91.6 MCH 29.4 MCHC 32.1 RDW 16.7 H Plt Count 32 L* MPV 11.6 H Gran % Lymph % (Auto) [place] % (Auto) Eos % (Auto) Baso % (Auto) Gran # Lymph # (Auto) [place] # (Auto) Eos # (Auto) Baso # (Auto) APTT 80.4 H Sodium Potassium Chloride Carbon Dioxide Anion Gap BUN Creatinine Est GFR ( Amer) Est GFR (Non-Af Amer) POC Glucose (mg/dL) Random Glucose Calcium Total Bilirubin AST ALT Alkaline Phosphatase Total Protein Albumin Globulin Albumin/Globulin Ratio Stool Occult Blood Blood Type B POSITIVE Antibody Screen Negative Crossmatch See Detail BBK History Checked Patient has bt 10/23/17 10/23/17 10/24/17 21:03 21:36 01:14 WBC 6.1 5.2 RBC 2.88 L 2.74 L Hgb 8.6 L 8.2 L Hct 26.6 L 25.3 L MCV 92.4 92.3 MCH 29.9 29.9 MCHC 32.3 32.4 RDW 16.8 H 17.0 H Plt Count 32 L* 31 L* MPV 12.0 H 11.6 H Gran % Lymph % (Auto) [place] % (Auto) Eos % (Auto) Baso % (Auto) Gran # Lymph # (Auto) [place] # (Auto) Eos # (Auto) Baso # (Auto) APTT Sodium Potassium Chloride Carbon Dioxide Anion Gap BUN Creatinine Est GFR ( Amer) Est GFR (Non-Af Amer) POC Glucose (mg/dL) 185 H Random Glucose Calcium Total Bilirubin AST ALT Alkaline Phosphatase Total Protein Albumin Globulin Albumin/Globulin Ratio Stool Occult Blood Blood Type Antibody Screen Crossmatch BBK History Checked 10/24/17 10/24/17 10/24/17 07:00 07:00 07:29 WBC 4.8 RBC 2.90 L Hgb 8.6 L Hct 26.3 L MCV 90.7 MCH 29.7 MCHC 32.7 RDW 16.8 H Plt Count 32 L* MPV Gran % 52.1 Lymph % (Auto) 29.3 [place] % (Auto) 15.2 H Eos % (Auto) 3.2 Baso % (Auto) 0.2 Gran # 2.48 Lymph # (Auto) 1.4 [place] # (Auto) 0.7 H Eos # (Auto) 0.2 Baso # (Auto) 0.01 APTT Sodium 134 Potassium 4.6 Chloride 100 Carbon Dioxide 25 Anion Gap 14 BUN 36 H Creatinine 4.6 H Est GFR ( Amer) 16 Est GFR (Non-Af Amer) 13 POC Glucose (mg/dL) 172 H Random Glucose 139 H Calcium 8.0 L Total Bilirubin 1.0 AST 47 ALT 1 L Alkaline Phosphatase 60 Total Protein 6.6 Albumin 2.6 L Globulin 4.0 Albumin/Globulin Ratio 0.7 L Stool Occult Blood Blood Type Antibody Screen Crossmatch BBK History Checked Fingerstick Blood Sugar Results: 172 Critical Care Progress Note - Nutrition Nutrition: Nutrition Category Date Time Status Renal Diet [DIET] Diets 10/20/17 Dinner Ordered Assessment/Plan - Assessment and Plan (Free Text) Assessment: Assessment: 52 M with PMH of CVA with right sided weakness, CAD s/p stent in 2017 with pacemaker, CHF, PVD, COPD, DM2, peripheral neuropathy, ESRD on HD MWF , chronic anemia, history of right foot cellulitis with wet gangrene, and pulmonary hypertension being managed in the ICU for 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 Argatoban, ASA and brilinta are being held due to gross blood in BM. Pending transfer to [facility] [place]. Plan: Neuro: -maintain normothermia -AAO x3, moving extremities spontaneously past midline -on lyrica for neuropathic pain -Psych on consult, Dr Cage Cardio: -maintain MAP>65 -hydralazine on hold -on lopressor 25mg BID -echo on 10/20 = f/u LASHAWN to r/o endocarditis due to blood culture positive for fungiemia. LVEF = 55-60%. Moderate to severe aortic regurg. RCA is immobile. Severe TR. RVSP 98. No evidence of endocarditis -Cardio on consult, Dr. Stephen Lungs: -SaO2 >90% -supplementary O2 PRN -duonebs PRN, Brovana Advair -pulm on consult Dr Escalera Renal: -maintain euvolemia -avoid nephrotoxic agents, hypochloremia -replace electrolytes as needed -BUN/Cr is 56/7.4 Heme: -Hg today is 8.6 from 8.2 -Platelets today are 32 today from 32 yesterday and 105 on admission on 10/16 -HD on 10/23 -Argatroban, ASA, brilinta is on hold due to possible GI bleed -Oncology on consult, Dr Morris Endo: -maintain euglycemia -on insulin humulin -on synthroid 25mg PO ID: -WBC is 4.8 today, afebrile -blood culture shows staph aureus and coag negative staph, skye glabrata, c diff is negative urine culture, MRSA screen pending -on bacitracin day 5, micafungin day 7 -ID on consult, Dr. Forbes -Podiatry on consult, Dr Villanueva -Surgery on consult, Dr Urrutia -Opthamology on consult Dr. Carrillo for endopthalmitis, fungemia -GI: -stool occult positive 10/23 -GI on consult, Dr Ahn <Adam Linares - Last Filed: 10/24/17 18:43> CCU Objective - Vital Signs / Intake & Output Vital Signs (Last 4 hours): Vital Signs Pulse Resp BP Pulse Ox 10/24/17 17:40 68 10/24/17 17:22 66 10/24/17 15:43 65 9 L 10/24/17 15:42 65 9 L 10/24/17 15:41 64 10 L 10/24/17 15:40 62 10 L 10/24/17 15:38 62 13 10/24/17 15:37 62 10 L 10/24/17 15:35 62 11 L 10/24/17 15:34 61 12 10/24/17 15:32 62 10/24/17 15:31 62 10 L 10/24/17 15:30 60 16 74 L 10/24/17 15:20 77 10 L 100 10/24/17 15:10 76 10 L 100 10/24/17 15:06 77 10 L 10/24/17 15:05 78 10 L 10/24/17 15:04 78 10 L 10/24/17 15:03 84 9 L 10/24/17 15:02 88 9 L 10/24/17 15:01 88 9 L 10/24/17 15:00 109/58 L 10/24/17 14:59 89 10 L 10/24/17 14:58 89 30 H 10/24/17 14:57 89 30 H Intake and Output (Last 8hrs): Intake & Output 10/24/17 10/24/17 10/24/17 06:59 14:59 22:59 Intake Total 420 Output Total 0 Balance 420 Intake: IV 100 Right Antecubital 100 Oral 320 Output: Urine 0 Urine, Voided 0 Other: # Bowel Movements 2 - Medications Active Medications: Active Medications Generic Name Dose Route Start Last Admin Trade Name Freq PRN Reason Stop Dose Admin Albuterol/Ipratropium 3 ml 10/16/17 16:25 10/23/17 13:35 Duoneb 3 Mg/0.5 Mg (3 Ml) Ud IH 3 ml [id number] PRN Administration Shortness of Breath Arformoterol Tartrate 15 mcg 10/19/17 20:00 10/24/17 08:27 Brovana IH 15 mcg [id number] CARLOS Administration Aspirin 81 mg 10/17/17 10:00 10/22/17 09:33 Ecotrin PO 81 mg DAILY CARLOS Administration Atorvastatin Calcium 40 mg 10/16/17 17:00 10/24/17 17:44 Lipitor PO 40 mg DIN CARLOS Administration Bacitracin 1 ea 10/20/17 10:00 10/23/17 17:10 Bacitracin TOP Not Given BID CARLOS Budesonide 0.5 mg 10/19/17 20:00 10/24/17 08:27 Pulmicort Respules IH 0.5 mg [id number] CARLOS Administration Calcium Acetate 1,334 mg 10/16/17 17:00 10/24/17 17:40 Phoslo PO 1,334 mg WM CARLOS Administration Diphenhydramine HCl 25 mg 10/16/17 16:25 10/23/17 21:35 Benadryl PO 25 mg HS PRN Administration Insomnia Ergocalciferol 1 cap 10/18/17 10:00 10/18/17 12:32 Drisdol 50,000 Intl Units Cap PO 1 cap WED CARLOS Administration Fenofibrate 145 mg 10/17/17 10:00 10/24/17 09:47 Tricor PO 145 mg DAILY CARLOS Administration Hydralazine HCl 25 mg 10/16/17 18:00 10/21/17 17:04 Apresoline PO Not Given BID CARLOS Micafungin Sodium 100 mg/ 100 mls @ 100 mls/hr 10/18/17 10:00 10/24/17 09:41 Sodium Chloride IV 10/26/17 10:01 100 mls/hr DAILY CARLOS Administration Protocol Argatroban 250 mg/ Dextrose 252.5 mls @ 10.5 mls/hr 10/23/17 11:30 10/23/17 17:08 IV 10.5 mls/hr .Q24H CARLOS Administration Protocol 2 MCG/KG/MIN Insulin Human NPH 20 units 10/16/17 18:00 10/23/17 19:09 Humulin N SC Not Given QPM CARLOS Insulin Human Regular 0 units 10/16/17 22:00 10/24/17 17:43 Humulin R High SC 4 units ACHS CARLOS Administration Protocol Latanoprost 0 ml 10/16/17 22:00 10/23/17 22:01 Xalatan Opht OU 2.5 ml HS CARLOS Administration Levothyroxine Sodium 25 mcg 10/17/17 06:00 10/24/17 05:23 Synthroid PO 25 mcg 0600 CARLOS Administration Loratadine 10 mg 10/16/17 22:00 10/23/17 21:35 Claritin PO 10 mg HS CARLOS Administration Metoprolol Tartrate 25 mg 10/17/17 10:00 10/24/17 17:40 Lopressor PO 25 mg BID CARLOS Administration Montelukast Sodium 10 mg 10/16/17 22:00 10/23/17 21:35 Singulair PO 10 mg HS CARLOS Administration Multivitamins 1 tab 10/17/17 10:00 10/24/17 09:29 Thera Tab PO 1 tab DAILY CARLOS Administration Salmeterol Xinafoate 1 puff 10/16/17 18:00 10/24/17 18:02 /Fluticaso [Advair IH Not Given Hfa 230-21] BID CARLOS [id number] Ethyl Esters 2 gm 10/16/17 18:00 10/24/17 09:30 Lovaza PO 2 gm BID CARLOS Administration Ondansetron HCl 4 mg 10/22/17 11:53 10/23/17 06:48 Zofran Inj IVP 4 mg Q6H PRN Administration Nausea/Vomiting Pregabalin 50 mg 10/16/17 22:00 10/23/17 21:35 Lyrica PO 50 mg HS CARLOS Administration Sevelamer HCl 1,600 mg 10/16/17 17:00 10/24/17 18:02 Renagel PO Not Given WM CARLOS Sodium Chloride 0 ml 10/16/17 16:25 [place] Nasal [place] NS Q2H PRN Nasal congestion Sucralfate 1 gm 10/23/17 16:00 10/24/17 17:41 Carafate Oral Susp PO 1 gm 0600,1600 CARLOS Administration Tamsulosin HCl 0.4 mg 10/16/17 22:00 10/23/17 21:35 Flomax PO 0.4 mg HS CARLOS Administration Ticagrelor 90 mg 10/18/17 18:00 10/19/17 17:13 Brilinta PO 90 mg BID CARLOS Administration - Patient Studies Lab Studies: Microbiology Studies 10/19/17 11:40 Blood Culture - Final Blood NO GROWTH AFTER 5 DAYS Gram Stain - Final TEST NOT PERFORMED 10/19/17 11:00 Blood Culture - Final Blood NO GROWTH AFTER 5 DAYS Gram Stain - Final TEST NOT PERFORMED Lab Studies 10/24/17 10/24/17 10/24/17 Range/Units 16:26 16:05 11:20 WBC (4.5-11.0) 10^3/ul RBC (3.5-6.1) 10^6/uL Hgb 8.1 L (14.0-18.0) g/dL Hct 25.1 L (42.0-52.0) % MCV (80.0-105.0) fl MCH (25.0-35.0) pg MCHC (31.0-37.0) g/dl RDW (11.5-14.5) % Plt Count (120.0-450.0) 10^3/uL MPV (7.0-11.0) fl Gran % (50.0-68.0) % Lymph % (Auto) (22.0-35.0) % [place] % (Auto) (1.0-6.0) % Eos % (Auto) (1.5-5.0) % Baso % (Auto) (0.0-3.0) % Gran # (1.4-6.5) Lymph # (Auto) (1.2-3.4) [place] # (Auto) (0.1-0.6) Eos # (Auto) (0.0-0.7) Baso # (Auto) (0.0-2.0) K/mm3 Platelet Evaluation (NORMAL) APTT (25.1-36.5) Seconds Sodium (132-148) mmol/L Potassium (3.6-5.0) mmol/L Chloride (98-107) mmol/L Carbon Dioxide (21-33) mmol/L Anion Gap (10-20) BUN (7-21) mg/dL Creatinine (0.8-1.5) mg/dl Est GFR ( Amer) Est GFR (Non-Af Amer) POC Glucose (mg/dL) 220 H 194 H (65-110) mg/dL Random Glucose (70-110) mg/dL Calcium (8.4-10.5) mg/dL Total Bilirubin (0.2-1.3) mg/dL AST (17-59) U/L ALT (7-56) U/L Alkaline Phosphatase (38-126) U/L Total Protein (5.8-8.3) g/dL Albumin (3.0-4.8) g/dL Globulin gm/dL Albumin/Globulin Ratio (1.1-1.8) Blood Type Antibody Screen Crossmatch BBK History Checked 10/24/17 10/24/17 10/24/17 Range/Units 07:29 07:00 07:00 WBC 4.8 (4.5-11.0) 10^3/ul RBC 2.90 L (3.5-6.1) 10^6/uL Hgb 8.6 L (14.0-18.0) g/dL Hct 26.3 L (42.0-52.0) % MCV 90.7 (80.0-105.0) fl MCH 29.7 (25.0-35.0) pg MCHC 32.7 (31.0-37.0) g/dl RDW 16.8 H (11.5-14.5) % Plt Count 32 L* (120.0-450.0) 10^3/uL MPV (7.0-11.0) fl Gran % 52.1 (50.0-68.0) % Lymph % (Auto) 29.3 (22.0-35.0) % [place] % (Auto) 15.2 H (1.0-6.0) % Eos % (Auto) 3.2 (1.5-5.0) % Baso % (Auto) 0.2 (0.0-3.0) % Gran # 2.48 (1.4-6.5) Lymph # (Auto) 1.4 (1.2-3.4) [place] # (Auto) 0.7 H (0.1-0.6) Eos # (Auto) 0.2 (0.0-0.7) Baso # (Auto) 0.01 (0.0-2.0) K/mm3 Platelet Evaluation Low (NORMAL) APTT (25.1-36.5) Seconds Sodium 134 (132-148) mmol/L Potassium 4.6 (3.6-5.0) mmol/L Chloride 100 (98-107) mmol/L Carbon Dioxide 25 (21-33) mmol/L Anion Gap 14 (10-20) BUN 36 H (7-21) mg/dL Creatinine 4.6 H (0.8-1.5) mg/dl Est GFR ( Amer) 16 Est GFR (Non-Af Amer) 13 POC Glucose (mg/dL) 172 H (65-110) mg/dL Random Glucose 139 H (70-110) mg/dL Calcium 8.0 L (8.4-10.5) mg/dL Total Bilirubin 1.0 (0.2-1.3) mg/dL AST 47 (17-59) U/L ALT 1 L (7-56) U/L Alkaline Phosphatase 60 (38-126) U/L Total Protein 6.6 (5.8-8.3) g/dL Albumin 2.6 L (3.0-4.8) g/dL Globulin 4.0 gm/dL Albumin/Globulin Ratio 0.7 L (1.1-1.8) Blood Type Antibody Screen Crossmatch BBK History Checked 10/24/17 10/23/17 10/23/17 Range/Units 01:14 21:36 21:03 WBC 5.2 6.1 (4.5-11.0) 10^3/ul RBC 2.74 L 2.88 L (3.5-6.1) 10^6/uL Hgb 8.2 L 8.6 L (14.0-18.0) g/dL Hct 25.3 L 26.6 L (42.0-52.0) % MCV 92.3 92.4 (80.0-105.0) fl MCH 29.9 29.9 (25.0-35.0) pg MCHC 32.4 32.3 (31.0-37.0) g/dl RDW 17.0 H 16.8 H (11.5-14.5) % Plt Count 31 L* 32 L* (120.0-450.0) 10^3/uL MPV 11.6 H 12.0 H (7.0-11.0) fl Gran % (50.0-68.0) % Lymph % (Auto) (22.0-35.0) % [place] % (Auto) (1.0-6.0) % Eos % (Auto) (1.5-5.0) % Baso % (Auto) (0.0-3.0) % Gran # (1.4-6.5) Lymph # (Auto) (1.2-3.4) [place] # (Auto) (0.1-0.6) Eos # (Auto) (0.0-0.7) Baso # (Auto) (0.0-2.0) K/mm3 Platelet Evaluation (NORMAL) APTT (25.1-36.5) Seconds Sodium (132-148) mmol/L Potassium (3.6-5.0) mmol/L Chloride (98-107) mmol/L Carbon Dioxide (21-33) mmol/L Anion Gap (10-20) BUN (7-21) mg/dL Creatinine (0.8-1.5) mg/dl Est GFR ( Amer) Est GFR (Non-Af Amer) POC Glucose (mg/dL) 185 H (65-110) mg/dL Random Glucose (70-110) mg/dL Calcium (8.4-10.5) mg/dL Total Bilirubin (0.2-1.3) mg/dL AST (17-59) U/L ALT (7-56) U/L Alkaline Phosphatase (38-126) U/L Total Protein (5.8-8.3) g/dL Albumin (3.0-4.8) g/dL Globulin gm/dL Albumin/Globulin Ratio (1.1-1.8) Blood Type Antibody Screen Crossmatch BBK History Checked 10/23/17 10/23/17 10/23/17 Range/Units 21:03 19:54 19:54 WBC 5.7 D (4.5-11.0) 10^3/ul RBC 2.86 L (3.5-6.1) 10^6/uL Hgb 8.4 L (14.0-18.0) g/dL Hct 26.2 L (42.0-52.0) % MCV 91.6 (80.0-105.0) fl MCH 29.4 (25.0-35.0) pg MCHC 32.1 (31.0-37.0) g/dl RDW 16.7 H (11.5-14.5) % Plt Count 32 L* (120.0-450.0) 10^3/uL MPV 11.6 H (7.0-11.0) fl Gran % (50.0-68.0) % Lymph % (Auto) (22.0-35.0) % [place] % (Auto) (1.0-6.0) % Eos % (Auto) (1.5-5.0) % Baso % (Auto) (0.0-3.0) % Gran # (1.4-6.5) Lymph # (Auto) (1.2-3.4) [place] # (Auto) (0.1-0.6) Eos # (Auto) (0.0-0.7) Baso # (Auto) (0.0-2.0) K/mm3 Platelet Evaluation (NORMAL) APTT 80.4 H (25.1-36.5) Seconds Sodium (132-148) mmol/L Potassium (3.6-5.0) mmol/L Chloride (98-107) mmol/L Carbon Dioxide (21-33) mmol/L Anion Gap (10-20) BUN (7-21) mg/dL Creatinine (0.8-1.5) mg/dl Est GFR ( Amer) Est GFR (Non-Af Amer) POC Glucose (mg/dL) (65-110) mg/dL Random Glucose (70-110) mg/dL Calcium (8.4-10.5) mg/dL Total Bilirubin (0.2-1.3) mg/dL AST (17-59) U/L ALT (7-56) U/L Alkaline Phosphatase (38-126) U/L Total Protein (5.8-8.3) g/dL Albumin (3.0-4.8) g/dL Globulin gm/dL Albumin/Globulin Ratio (1.1-1.8) Blood Type B POSITIVE Antibody Screen Negative Crossmatch See Detail BBK History Checked Patient has bt 10/23/17 10/23/17 Range/Units 16:44 13:03 WBC (4.5-11.0) 10^3/ul RBC (3.5-6.1) 10^6/uL Hgb (14.0-18.0) g/dL Hct (42.0-52.0) % MCV (80.0-105.0) fl MCH (25.0-35.0) pg MCHC (31.0-37.0) g/dl RDW (11.5-14.5) % Plt Count (120.0-450.0) 10^3/uL MPV (7.0-11.0) fl Gran % (50.0-68.0) % Lymph % (Auto) (22.0-35.0) % [place] % (Auto) (1.0-6.0) % Eos % (Auto) (1.5-5.0) % Baso % (Auto) (0.0-3.0) % Gran # (1.4-6.5) Lymph # (Auto) (1.2-3.4) [place] # (Auto) (0.1-0.6) Eos # (Auto) (0.0-0.7) Baso # (Auto) (0.0-2.0) K/mm3 Platelet Evaluation (NORMAL) APTT (25.1-36.5) Seconds Sodium (132-148) mmol/L Potassium (3.6-5.0) mmol/L Chloride (98-107) mmol/L Carbon Dioxide (21-33) mmol/L Anion Gap (10-20) BUN (7-21) mg/dL Creatinine (0.8-1.5) mg/dl Est GFR ( Amer) Est GFR (Non-Af Amer) POC Glucose (mg/dL) 127 H 87 (65-110) mg/dL Random Glucose (70-110) mg/dL Calcium (8.4-10.5) mg/dL Total Bilirubin (0.2-1.3) mg/dL AST (17-59) U/L ALT (7-56) U/L Alkaline Phosphatase (38-126) U/L Total Protein (5.8-8.3) g/dL Albumin (3.0-4.8) g/dL Globulin gm/dL Albumin/Globulin Ratio (1.1-1.8) Blood Type Antibody Screen Crossmatch BBK History Checked Laboratory Results - last 24 hr 10/23/17 10/23/17 10/23/17 13:03 16:44 19:54 WBC RBC Hgb Hct MCV MCH MCHC RDW Plt Count MPV Gran % Lymph % (Auto) [place] % (Auto) Eos % (Auto) Baso % (Auto) Gran # Lymph # (Auto) [place] # (Auto) Eos # (Auto) Baso # (Auto) Platelet Evaluation APTT 80.4 H Sodium Potassium Chloride Carbon Dioxide Anion Gap BUN Creatinine Est GFR ( Amer) Est GFR (Non-Af Amer) POC Glucose (mg/dL) 87 127 H Random Glucose Calcium Total Bilirubin AST ALT Alkaline Phosphatase Total Protein Albumin Globulin Albumin/Globulin Ratio Blood Type Antibody Screen Crossmatch BBK History Checked 10/23/17 10/23/17 10/23/17 19:54 21:03 21:03 WBC 5.7 D 6.1 RBC 2.86 L 2.88 L Hgb 8.4 L 8.6 L Hct 26.2 L 26.6 L MCV 91.6 92.4 MCH 29.4 29.9 MCHC 32.1 32.3 RDW 16.7 H 16.8 H Plt Count 32 L* 32 L* MPV 11.6 H 12.0 H Gran % Lymph % (Auto) [place] % (Auto) Eos % (Auto) Baso % (Auto) Gran # Lymph # (Auto) [place] # (Auto) Eos # (Auto) Baso # (Auto) Platelet Evaluation APTT Sodium Potassium Chloride Carbon Dioxide Anion Gap BUN Creatinine Est GFR ( Amer) Est GFR (Non-Af Amer) POC Glucose (mg/dL) Random Glucose Calcium Total Bilirubin AST ALT Alkaline Phosphatase Total Protein Albumin Globulin Albumin/Globulin Ratio Blood Type B POSITIVE Antibody Screen Negative Crossmatch See Detail BBK History Checked Patient has bt 10/23/17 10/24/17 10/24/17 21:36 01:14 07:00 WBC 5.2 RBC 2.74 L Hgb 8.2 L Hct 25.3 L MCV 92.3 MCH 29.9 MCHC 32.4 RDW 17.0 H Plt Count 31 L* MPV 11.6 H Gran % Lymph % (Auto) [place] % (Auto) Eos % (Auto) Baso % (Auto) Gran # Lymph # (Auto) [place] # (Auto) Eos # (Auto) Baso # (Auto) Platelet Evaluation APTT Sodium 134 Potassium 4.6 Chloride 100 Carbon Dioxide 25 Anion Gap 14 BUN 36 H Creatinine 4.6 H Est GFR ( Amer) 16 Est GFR (Non-Af Amer) 13 POC Glucose (mg/dL) 185 H Random Glucose 139 H Calcium 8.0 L Total Bilirubin 1.0 AST 47 ALT 1 L Alkaline Phosphatase 60 Total Protein 6.6 Albumin 2.6 L Globulin 4.0 Albumin/Globulin Ratio 0.7 L Blood Type Antibody Screen Crossmatch BBK History Checked 10/24/17 10/24/17 10/24/17 07:00 07:29 11:20 WBC 4.8 RBC 2.90 L Hgb 8.6 L Hct 26.3 L MCV 90.7 MCH 29.7 MCHC 32.7 RDW 16.8 H Plt Count 32 L* MPV Gran % 52.1 Lymph % (Auto) 29.3 [place] % (Auto) 15.2 H Eos % (Auto) 3.2 Baso % (Auto) 0.2 Gran # 2.48 Lymph # (Auto) 1.4 [place] # (Auto) 0.7 H Eos # (Auto) 0.2 Baso # (Auto) 0.01 Platelet Evaluation Low APTT Sodium Potassium Chloride Carbon Dioxide Anion Gap BUN Creatinine Est GFR ( Amer) Est GFR (Non-Af Amer) POC Glucose (mg/dL) 172 H 194 H Random Glucose Calcium Total Bilirubin AST ALT Alkaline Phosphatase Total Protein Albumin Globulin Albumin/Globulin Ratio Blood Type Antibody Screen Crossmatch BBK History Checked 10/24/17 10/24/17 16:05 16:26 WBC RBC Hgb 8.1 L Hct 25.1 L MCV MCH MCHC RDW Plt Count MPV Gran % Lymph % (Auto) [place] % (Auto) Eos % (Auto) Baso % (Auto) Gran # Lymph # (Auto) [place] # (Auto) Eos # (Auto) Baso # (Auto) Platelet Evaluation APTT Sodium Potassium Chloride Carbon Dioxide Anion Gap BUN Creatinine Est GFR ( Amer) Est GFR (Non-Af Amer) POC Glucose (mg/dL) 220 H Random Glucose Calcium Total Bilirubin AST ALT Alkaline Phosphatase Total Protein Albumin Globulin Albumin/Globulin Ratio Blood Type Antibody Screen Crossmatch BBK History Checked Critical Care Progress Note - Nutrition Nutrition: Nutrition Category Date Time Status Renal Diet [DIET] Diets 10/20/17 Dinner Ordered Attending/Attestation - Attestation I have personally seen and examined this patient.: Yes I have fully participated in the care of the patient.: Yes I have reviewed all pertinent clinical information: Yes Notes (Text): 10/24/17 18:41 52 yo male with severe PVD, was initially admitted to icu for argatroban drip, which was held due to melenotic BM. VS relatively stable, protecting airways, no respiratory distress. ok to downgrade to tele ccm time 40 min
[2017-10-24] MEDS: FLUTICASO IH SCH ×2 (15:23→18:02)
[2017-10-24] MEDS: SALMETEROL XINAFOATE IH SCH ×2 (15:23→18:02)
--- NOTE | 2017-10-24 16:00 | NM ---
Date of service: 10/24/2017 PROCEDURE: Nuclear medicine gastrointestinal bleeding scan. HISTORY: rectal bleeding COMPARISON: 30.2 None available. TECHNIQUE: 4ccof patient blood was withdrawn and mixed with mCi of technetium ultra tagged. Images of the abdomen and pelvis were obtained in the anterior projection at 1 min intervals over a period of 45 min. FINDINGS: Abnormal activity is seen in the rectum consistent with an active rectal bleed. The remainder the colon is unremarkable Physiologic activity was seen in the heart, liver, spleen and blood vessels. IMPRESSION: Abnormal activity is seen in the rectum consistent with an active rectal bleed. The remainder the colon is unremarkable
[2017-10-24 16:11] LABS: HEMOGLOBIN 8.1 g/dL (14.0-18.0)
--- NOTE | 2017-10-24 16:23 | CP.PCM.PN ---
<Marciano Clmeente - Last Filed: 10/24/17 16:19> Subjective - Date & Time of Evaluation Date of Evaluation: 10/24/17 Time of Evaluation: 16:19 - Subjective Subjective: Podiatry Progress Note for Dr. Quevedo 52M seen at bedside for right foot TMA stump ulceration. Patient is AAO x 3. States that pain to ulceraton site is minimal at this time. States that he has had blood in his stool. Denies any further pedal complaints at this time. Denies any recent N/V/F/CP/SOB Objective - Vital Signs/Intake and Output Vital Signs (last 24 hours): Temp Pulse Resp BP Pulse Ox 97.6 F 65 9 L 109/58 L 74 L 10/24/17 12:00 10/24/17 15:43 10/24/17 15:43 10/24/17 15:00 10/24/17 15:30 - Medications Medications: Current Medications Albuterol/Ipratropium (Duoneb 3 Mg/0.5 Mg (3 Ml) Ud) 3 ml IH [id number] PRN PRN Reason: Shortness of Breath Last Admin: 10/23/17 13:35 Dose: 3 ml Arformoterol Tartrate (Brovana) 15 mcg IH [id number] [facility] Last Admin: 10/24/17 08:27 Dose: 15 mcg Aspirin (Ecotrin) 81 mg PO DAILY [facility] Last Admin: 10/22/17 09:33 Dose: 81 mg Atorvastatin Calcium (Lipitor) 40 mg PO DIN [facility] Last Admin: 10/23/17 17:11 Dose: 40 mg Bacitracin (Bacitracin) 1 ea TOP BID [facility] Last Admin: 10/23/17 17:10 Dose: Not Given Budesonide (Pulmicort Respules) 0.5 mg IH [id number] [facility] Last Admin: 10/24/17 08:27 Dose: 0.5 mg Calcium Acetate (Phoslo) 1,334 mg PO WM [facility] Last Admin: 10/24/17 12:36 Dose: 1,334 mg Diphenhydramine HCl (Benadryl) 25 mg PO HS PRN PRN Reason: Insomnia Last Admin: 10/23/17 21:35 Dose: 25 mg Ergocalciferol (Drisdol 50,000 Intl Units Cap) 1 cap PO WED [facility] Last Admin: 10/18/17 12:32 Dose: 1 cap Fenofibrate (Tricor) 145 mg PO DAILY [facility] Last Admin: 10/24/17 09:47 Dose: 145 mg Hydralazine HCl (Apresoline) 25 mg PO BID [facility] Last Admin: 10/21/17 17:04 Dose: Not Given Micafungin Sodium 100 mg/ (Sodium Chloride) 100 mls @ 100 mls/hr IV DAILY CARLOS PRN Reason: Protocol Stop: 10/26/17 10:01 Last Admin: 10/24/17 09:41 Dose: 100 mls/hr Argatroban 250 mg/ Dextrose 252.5 mls @ 10.5 mls/hr IV .Q24H CARLOS; 2 MCG/KG/MIN PRN Reason: Protocol Last Admin: 10/23/17 17:08 Dose: 10.5 mls/hr Insulin Human NPH (Humulin N) 20 units SC QPM [facility] Last Admin: 10/23/17 19:09 Dose: Not Given Insulin Human Regular (Humulin R High) 0 units SC ACHS [facility] PRN Reason: Protocol Last Admin: 10/24/17 12:30 Dose: Not Given Latanoprost (Xalatan Opht) 0 ml OU HS [facility] Last Admin: 10/23/17 22:01 Dose: 2.5 ml Levothyroxine Sodium (Synthroid) 25 mcg PO 0600 [facility] Last Admin: 10/24/17 05:23 Dose: 25 mcg Loratadine (Claritin) 10 mg PO HS [facility] Last Admin: 10/23/17 21:35 Dose: 10 mg Metoprolol Tartrate (Lopressor) 25 mg PO BID [facility] Last Admin: 10/24/17 09:30 Dose: 25 mg Montelukast Sodium (Singulair) 10 mg PO HS [facility] Last Admin: 10/23/17 21:35 Dose: 10 mg Multivitamins (Thera Tab) 1 tab PO DAILY [facility] Last Admin: 10/24/17 09:29 Dose: 1 tab Salmeterol Xinafoate /Fluticaso [Advair Hfa 230-21] 1 puff IH BID [facility] Last Admin: 10/24/17 15:23 Dose: Not Given [id number] Ethyl Esters (Lovaza) 2 gm PO BID [facility] Last Admin: 10/24/17 09:30 Dose: 2 gm Ondansetron HCl (Zofran Inj) 4 mg IVP Q6H PRN PRN Reason: Nausea/Vomiting Last Admin: 10/23/17 06:48 Dose: 4 mg Pregabalin (Lyrica) 50 mg PO HS [facility] Last Admin: 10/23/17 21:35 Dose: 50 mg Sevelamer HCl (Renagel) 1,600 mg PO WM [facility] Last Admin: 10/24/17 12:36 Dose: 1,600 mg Sodium Chloride ([place] Nasal [place]) 0 ml NS Q2H PRN PRN Reason: Nasal congestion Sucralfate (Carafate Oral Susp) 1 gm PO 0600,1600 [facility] Last Admin: 10/24/17 05:23 Dose: 1 gm Tamsulosin HCl (Flomax) 0.4 mg PO HS [facility] Last Admin: 10/23/17 21:35 Dose: 0.4 mg Ticagrelor (Brilinta) 90 mg PO BID [facility] Last Admin: 10/19/17 17:13 Dose: 90 mg - Labs Labs: 10/24/17 16:05 10/24/17 07:00 PT 17.9 SECONDS (9.4-12.5) H 10/20/17 07:00 INR 1.54 10/20/17 07:00 APTT 80.4 Seconds (25.1-36.5) H 10/23/17 19:54 - Constitutional Appears: Well, Non-toxic, No Acute Distress - Extremities Exam Additional comments: RLE focused exam: Vasc: DP/PT pulses faintly palpable b/l. CFT to dorsal foot < 3 seconds. Moderate edema noted to TMA site Derm: distal TMA site flap is coapted and reapproximated with sutures and fitz. No unraveling of sutures or backing out of fitz noted. No dehiscence appreciated to the flap. Entire flap is necrosed at this time. There is an open large ulceration measuring approximately 10 cm x 7 cm x 2 cm on the plantar medial aspect of right foot, wound base mixture of fibrotic and necrotic tissue with serous drainage and mild malodor. No tracking, tunneling or undermining. No probe to bone. Neuro: Epicritic and protective sensation grossly absent Ortho: POP to plantar ulceration site. Ankle AROM and passive ROM WNL - Neurological Exam Neurological Exam: Alert, Awake, Oriented x3 - Psychiatric Exam Psychiatric exam: Normal Affect, Normal Mood Assessment and Plan - Assessment and Plan (Free Text) Assessment: 52M seen at bedside for right foot TMA stump ulceration Plan: Patient seen and evaluated with Dr. Quevedo Absent leukocytosis Wound dressed with betadine, ABD, DSD No plan for surgical intervention from podiatry at this time Podiatry will continue to follow until patient undergoes BKA <Adria Quevedo - Last Filed: 10/24/17 16:51> Objective - Vital Signs/Intake and Output Vital Signs (last 24 hours): Temp Pulse Resp BP Pulse Ox 97.6 F 65 9 L 109/58 L 74 L 10/24/17 12:00 10/24/17 15:43 10/24/17 15:43 10/24/17 15:00 10/24/17 15:30 - Medications Medications: Current Medications Albuterol/Ipratropium (Duoneb 3 Mg/0.5 Mg (3 Ml) Ud) 3 ml IH [id number] PRN PRN Reason: Shortness of Breath Last Admin: 10/23/17 13:35 Dose: 3 ml Arformoterol Tartrate (Brovana) 15 mcg IH [id number] [facility] Last Admin: 10/24/17 08:27 Dose: 15 mcg Aspirin (Ecotrin) 81 mg PO DAILY [facility] Last Admin: 10/22/17 09:33 Dose: 81 mg Atorvastatin Calcium (Lipitor) 40 mg PO DIN [facility] Last Admin: 10/23/17 17:11 Dose: 40 mg Bacitracin (Bacitracin) 1 ea TOP BID [facility] Last Admin: 10/23/17 17:10 Dose: Not Given Budesonide (Pulmicort Respules) 0.5 mg IH [id number] [facility] Last Admin: 10/24/17 08:27 Dose: 0.5 mg Calcium Acetate (Phoslo) 1,334 mg PO WM [facility] Last Admin: 10/24/17 12:36 Dose: 1,334 mg Diphenhydramine HCl (Benadryl) 25 mg PO HS PRN PRN Reason: Insomnia Last Admin: 10/23/17 21:35 Dose: 25 mg Ergocalciferol (Drisdol 50,000 Intl Units Cap) 1 cap PO WED [facility] Last Admin: 10/18/17 12:32 Dose: 1 cap Fenofibrate (Tricor) 145 mg PO DAILY [facility] Last Admin: 10/24/17 09:47 Dose: 145 mg Hydralazine HCl (Apresoline) 25 mg PO BID [facility] Last Admin: 10/21/17 17:04 Dose: Not Given Micafungin Sodium 100 mg/ (Sodium Chloride) 100 mls @ 100 mls/hr IV DAILY [facility] PRN Reason: Protocol Stop: 10/26/17 10:01 Last Admin: 10/24/17 09:41 Dose: 100 mls/hr Argatroban 250 mg/ Dextrose 252.5 mls @ 10.5 mls/hr IV .Q24H [facility]LOS; 2 MCG/KG/MIN PRN Reason: Protocol Last Admin: 10/23/17 17:08 Dose: 10.5 mls/hr Insulin Human NPH (Humulin N) 20 units SC QPM [facility] Last Admin: 10/23/17 19:09 Dose: Not Given Insulin Human Regular (Humulin R High) 0 units SC ACHS [facility] PRN Reason: Protocol Last Admin: 10/24/17 12:30 Dose: Not Given Latanoprost (Xalatan Opht) 0 ml OU HS [facility] Last Admin: 10/23/17 22:01 Dose: 2.5 ml Levothyroxine Sodium (Synthroid) 25 mcg PO 0600 [facility] Last Admin: 10/24/17 05:23 Dose: 25 mcg Loratadine (Claritin) 10 mg PO HS [facility] Last Admin: 10/23/17 21:35 Dose: 10 mg Metoprolol Tartrate (Lopressor) 25 mg PO BID [facility] Last Admin: 10/24/17 09:30 Dose: 25 mg Montelukast Sodium (Singulair) 10 mg PO HS [facility] Last Admin: 10/23/17 21:35 Dose: 10 mg Multivitamins (Thera Tab) 1 tab PO DAILY [facility] Last Admin: 10/24/17 09:29 Dose: 1 tab Salmeterol Xinafoate /Fluticaso [Advair Hfa 230-21] 1 puff IH BID [facility] Last Admin: 10/24/17 15:23 Dose: Not Given [id number]-[id number] Ethyl Esters (Lovaza) 2 gm PO BID [facility] Last Admin: 10/24/17 09:30 Dose: 2 gm Ondansetron HCl (Zofran Inj) 4 mg IVP Q6H PRN PRN Reason: Nausea/Vomiting Last Admin: 10/23/17 06:48 Dose: 4 mg Pregabalin (Lyrica) 50 mg PO HS [facility] Last Admin: 10/23/17 21:35 Dose: 50 mg Sevelamer HCl (Renagel) 1,600 mg PO WM [facility] Last Admin: 10/24/17 12:36 Dose: 1,600 mg Sodium Chloride ([place] Nasal [place]) 0 ml NS Q2H PRN PRN Reason: Nasal congestion Sucralfate (Carafate Oral Susp) 1 gm PO 0600,1600 [facility] Last Admin: 10/24/17 05:23 Dose: 1 gm Tamsulosin HCl (Flomax) 0.4 mg PO HS [facility] Last Admin: 10/23/17 21:35 Dose: 0.4 mg Ticagrelor (Brilinta) 90 mg PO BID [facility] Last Admin: 10/19/17 17:13 Dose: 90 mg - Labs Labs: 10/24/17 16:05 10/24/17 07:00 PT 17.9 SECONDS (9.4-12.5) H 10/20/17 07:00 INR 1.54 10/20/17 07:00 APTT 80.4 Seconds (25.1-36.5) H 10/23/17 19:54 Attending/Attestation - Attestation I have personally seen and examined this patient.: Yes I have fully participated in the care of the patient.: Yes I have reviewed all pertinent clinical information, including history, physical exam and plan: Yes
--- NOTE | 2017-10-24 17:47 | PN ---
Copied To: Jarred Erickson MD Attending MD: Jarred Erickson MD DATE: 10/24/2017 REASON FOR CONSULTATION AND FOLLOWUP: Preop evaluation, risk stratification for possible right BKA. SUBJECTIVE: The patient denies any chest pain, shortness of breath, or any palpitation. OBJECTIVE: GENERAL: Not in apparent distress. VITAL SIGNS: As follows: Temperature afebrile, heart rate 60, blood pressure 130/80. HEENT: PERRLA. Extraocular muscles are intact. NECK: Supple. No carotid bruits. No thyromegaly. CHEST: Clear to auscultation. HEART: S1 and S2 regular. ABDOMEN: Soft. EXTREMITIES: Clubbing and cyanosis negative. LABORATORY DATA: Blood workup as follows: WBC 4.8, hemoglobin 8.6, hematocrit 26.3, platelet count 32. Chemistries shows sodium 134, potassium 4.6, chloride 100, carbon dioxide 25, anion gap of 14, BUN 36, creatinine 4.6. IMPRESSION: A 52-year-old male with past medical history significant for coronary artery disease, status post percutaneous transluminal coronary angioplasty in 05/2015, status post pacemaker, 06/2015, admitted with nonhealing ulcer, status post amputation of right forefoot, being evaluated for right below-knee amputation. The patient has persistently low platelet, possible heparin-induced thrombocytopenia. So, the patient was transferred to ICU for possible IV dabigatran infusion for possible heparin-induced thrombocytopenia. Currently, the patient's OR is canceled because of the low platelet and postponed till the platelet is elevated, currently getting IV dabigatran. The patient has recently LASHAWN done because of the fungemia in the blood, no evidence of vegetation. Echocardiogram reviewed serial May, no significant change this LASHAWN from before. History of coronary artery disease, history of stent, history of ST-elevation myocardial infarction, [id number] myocardial infarction, history of , history of end-stage renal disease, on dialysis, history of diabetic retinopathy, neuropathy. RECOMMENDATIONS: Continue Hematology/Oncology followup for heparin-induce thrombocytopenia. As per Hematology/Oncology, continue low-dose beta-valerie. The patient is off Brilinta for possible OR and also the patient has a low platelet. Continue antifungal treatment, continue beta-valerie, continue atorvastatin. Once the platelet is adequate for OR, the patient will go to the OR. The patient is cleared from Cardiology point of view with high risk because of underlying comorbidity. No absolute contraindication, but the patient needs platelet to be adequate to stop the bleeding to go to the OR. Thank you, Dr. Potter, for providing us the opportunity in taking care of the patient, Jason Berger. We will repeat CBC in the morning. Jarred Erickson MD
--- NOTE | 2017-10-24 18:39 | CP.PCM.PN ---
Subjective - Date & Time of Evaluation Date of Evaluation: 10/24/17 Time of Evaluation: 09:40 - Subjective Subjective: No fevers, not in distress, no chest pain, no pain in the right leg. Objective - Vital Signs/Intake and Output Vital Signs (last 24 hours): Temp Pulse Resp BP Pulse Ox 98.3 F 83 13 91/35 L 100 10/23/17 17:00 10/24/17 06:00 10/24/17 05:30 10/24/17 05:00 10/24/17 06:00 Intake and Output: 10/23/17 10/24/17 18:59 06:59 Intake Total 581 Balance 581 - Medications Medications: Current Medications Albuterol/Ipratropium (Duoneb 3 Mg/0.5 Mg (3 Ml) Ud) 3 ml IH [id number] PRN PRN Reason: Shortness of Breath Last Admin: 10/23/17 13:35 Dose: 3 ml Arformoterol Tartrate (Brovana) 15 mcg IH [id number] [facility] Last Admin: 10/23/17 20:10 Dose: 15 mcg Aspirin (Ecotrin) 81 mg PO DAILY [facility] Last Admin: 10/22/17 09:33 Dose: 81 mg Atorvastatin Calcium (Lipitor) 40 mg PO DIN [facility] Last Admin: 10/23/17 17:11 Dose: 40 mg Bacitracin (Bacitracin) 1 ea TOP BID [facility] Last Admin: 10/23/17 17:10 Dose: Not Given Budesonide (Pulmicort Respules) 0.5 mg IH [id number] [facility] Last Admin: 10/23/17 20:10 Dose: 0.5 mg Calcium Acetate (Phoslo) 1,334 mg PO WM [facility] Last Admin: 10/23/17 17:12 Dose: 1,334 mg Diphenhydramine HCl (Benadryl) 25 mg PO HS PRN PRN Reason: Insomnia Last Admin: 10/23/17 21:35 Dose: 25 mg Ergocalciferol (Drisdol 50,000 Intl Units Cap) 1 cap PO WED [facility] Last Admin: 10/18/17 12:32 Dose: 1 cap Fenofibrate (Tricor) 145 mg PO DAILY [facility] Last Admin: 10/23/17 17:13 Dose: 145 mg Hydralazine HCl (Apresoline) 25 mg PO BID [facility] Last Admin: 10/21/17 17:04 Dose: Not Given Micafungin Sodium 100 mg/ (Sodium Chloride) 100 mls @ 100 mls/hr IV DAILY [facility] PRN Reason: Protocol Stop: 10/26/17 10:01 Last Admin: 10/23/17 13:09 Dose: 100 mls/hr Argatroban 250 mg/ Dextrose 252.5 mls @ 10.5 mls/hr IV .Q24H CARLOS; 2 MCG/KG/MIN PRN Reason: Protocol Last Admin: 10/23/17 17:08 Dose: 10.5 mls/hr Insulin Human NPH (Humulin N) 20 units SC QPM [facility] Last Admin: 10/23/17 19:09 Dose: Not Given Insulin Human Regular (Humulin R High) 0 units SC ACHS [facility] PRN Reason: Protocol Last Admin: 10/23/17 23:21 Dose: Not Given Latanoprost (Xalatan Opht) 0 ml OU HS [facility] Last Admin: 10/23/17 22:01 Dose: 2.5 ml Levothyroxine Sodium (Synthroid) 25 mcg PO 0600 [facility] Last Admin: 10/24/17 05:23 Dose: 25 mcg Loratadine (Claritin) 10 mg PO HS [facility] Last Admin: 10/23/17 21:35 Dose: 10 mg Metoprolol Tartrate (Lopressor) 25 mg PO BID [facility] Last Admin: 10/23/17 17:11 Dose: 25 mg Montelukast Sodium (Singulair) 10 mg PO [facility] Last Admin: 10/23/17 21:35 Dose: 10 mg Multivitamins (Thera Tab) 1 tab PO DAILY [facility] Last Admin: 10/23/17 17:15 Dose: 1 tab Salmeterol Xinafoate /Fluticaso [Advair Hfa 230-21] 1 puff IH BID [facility] Last Admin: 10/23/17 17:13 Dose: Not Given Eoscj-3-Bvkf Ethyl Esters (Lovaza) 2 gm PO BID [facility] Last Admin: 10/23/17 17:12 Dose: 1 gm Ondansetron HCl (Zofran Inj) 4 mg IVP Q6H PRN PRN Reason: Nausea/Vomiting Last Admin: 10/23/17 06:48 Dose: 4 mg Pregabalin (Lyrica) 50 mg PO [facility] Last Admin: 10/23/17 21:35 Dose: 50 mg Sevelamer HCl (Renagel) 1,600 mg PO WM [facility] Last Admin: 10/23/17 17:15 Dose: 1,600 mg Sodium Chloride ([place] Nasal [place]) 0 ml NS Q2H PRN PRN Reason: Nasal congestion Sucralfate (Carafate Oral Susp) 1 gm PO 0600,1600 [facility] Last Admin: 10/24/17 05:23 Dose: 1 gm Tamsulosin HCl (Flomax) 0.4 mg PO HS [facility] Last Admin: 10/23/17 21:35 Dose: 0.4 mg Ticagrelor (Brilinta) 90 mg PO BID [facility] Last Admin: 10/19/17 17:13 Dose: 90 mg - Labs Labs: 10/24/17 01:14 10/23/17 06:45 PT 17.9 SECONDS (9.4-12.5) H 10/20/17 07:00 INR 1.54 10/20/17 07:00 APTT 80.4 Seconds (25.1-36.5) H 10/23/17 19:54 - Constitutional Appears: Chronically Ill - Head Exam Head Exam: NORMAL INSPECTION - Respiratory Exam Respiratory Exam: Decreased Breath Sounds - Cardiovascular Exam Cardiovascular Exam: +S1, +S2 - GI/Abdominal Exam GI & Abdominal Exam: Soft. 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 diff. associated diarrhea ESRD on HD DM obesity CAD S/P PCI retinopathy history of pancreatitis Plan continue Mycamine for C. glabrata in the blood day 6; patient will need Ophtho exam - patient may need up to 4 weeks of antifungal therapy patient on Argatroban drip for possible HIT, then for BKA once platelet count has improved will continue to monitor clinically
[2017-10-24] MEDS: Oxycodone/Acetaminophen 5/325 mg Tab PO PRN (19:35)
[2017-10-24] MEDS: Latanoprost 2.5 ml Opht Soln OU SCH (22:03)
--- NOTE | 2017-10-25 00:33 | PN ---
Copied To: Jarred Escalera MD Attending MD: Jarred Escalera MD DATE: 10/24/2017 PULMONARY CRITICAL CARE PROGRESS NOTE REFERRING PHYSICIAN: Gallo Potter MD SUBJECTIVE: He is moved to intensive care unit, has severe thrombocytopenia. Lying in the bed, head at 45 degrees. Does not like to use CPAP and BiPap, getting nebulizer treatment. Breathing is okay. No headache, no rhinitis. No nausea, no vomiting, no diarrhea. Still have right foot discomfort, managed by medications. OBJECTIVE: GENERAL: No acute distress. VITAL SIGNS: Temperature is 98, heart rate 65, respiratory rate is 10, blood pressure 109/60. HEENT: Moist mucous membrane. Crowded airway. Mallampati score is 4. NECK: Supple. No JVD. LUNGS: Has fair airflow with rhonchi. HEART: S1, S2. ABDOMEN: Soft, nontender, no organomegaly. EXTREMITIES: He has a right foot dressing, tender to touch. NEUROLOGICAL: Awake, alert and follows simple command. MEDICATIONS: He is on hydralazine 25 mg twice a day, argatroban is placed on hold, bacitracin ointment twice a day, Benadryl 25 mg at bedtime p.r.n., Brilinta 90 mg twice a day, Brovana inhaled twice a day, Carafate 1 g twice a day, Claritin 10 mg daily, vitamin D 50,000 units weekly, DuoNeb every 6 hours p.r.n., Ecotrin 81 mg daily, Flomax 0.4 mg daily, insulin coverage, Lipitor 40 mg daily, metoprolol tartrate 25 mg twice a day, Lovaza 2 g twice a day, Lyrica 50 mg at bedtime, micafungin 100 mg IV daily, Percocet 5/325 1 tablet every 12 hours p.r.n., PhosLo with meals, also Renagel with meals, Pulmicort inhaled twice a day, Singulair 10 mg daily, Synthroid 25 mcg daily, multivitamins daily, Tricor 145 mcg daily, Zofran p.r.n. basis. LABORATORY DATA: Shows hemoglobin 8.6, hematocrit 26.3, WBC 4.8, platelet count is 32. PTT is 80. Sodium 134, potassium 4.6, chloride 100, bicarbonate 25, BUN 36, creatinine 4.6, glucose 139, calcium is 8, AST 47, ALT ____, alk phos is 60. Albumin is 2.6. Microbiology, repeat blood culture is no growth. Has a bleeding scan done which shows abnormal activity seen in the rectum consistent with an active rectal bleeding. IMPRESSION AND PLAN: Severe peripheral vascular disease, end up with nonhealing ulcer on the right foot requiring partial amputation with severe vascular insufficiency. Incision site is nonhealing. Scheduled for right below knee amputation. 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 History of coronary artery disease, hypertension, peripheral neuropathy, severe pulmonary hypertension, cardiac diastolic dysfunction, sleep apnea syndrome, noncompliant with continuous positive airway pressure, history of asthma. Pulmonary point view, continue bronchodilator. Keep head at 45 degrees. Being followed by Hematology, Oncology and Gastroenterology. Gastric prophylaxis. Keep SCDs to lower extremity. Follow up labs in the morning. Thank you and we will follow with you. Jarred Escalera MD
[2017-10-25] MEDS: Oxycodone/Acetaminophen 5/325 mg Tab PO PRN ×3 (01:02→18:24)
[2017-10-25 01:05] LABS: HEMOGLOBIN 7.8 g/dL (14.0-18.0)
[2017-10-25] MEDS: Sucralfate 1 gm/10 ml Oral Susp UD PO SCH (06:18)
[2017-10-25] MEDS: Levothyroxine 25 MCG TAB PO SCH (06:18)
[2017-10-25 06:30] LABS: BASO # 0.01 K/mm3 (0.0-2.0); BASO % 0.2 % (0.0-3.0); EOS # 0.3 (0.0-0.7); EOS % 4.2 % (1.5-5.0); GRAN # 2.77 (1.4-6.5); HEMOGLOBIN 7.8 g/dL (14.0-18.0); LYMPH # 1.8 (1.2-3.4); LYMPH % 29.2 % (22.0-35.0); MEAN CELL VOLUME 91.2 fl (80.0-105.0); MEAN CORPUSCULAR HEMOGLOBIN 29.8 pg (25.0-35.0); MEAN CORPUSCULAR HGB CONC 32.6 g/dl (31.0-37.0); MEAN PLATELET VOLUME 9.2 fl (7.0-11.0); MONO # 1.2 (0.1-0.6); MONO % 20.4 % (1.0-6.0); PLATELET COUNT 71 10^3/uL (120.0-450.0); RBC 2.62 10^6/uL (3.5-6.1); RED CELL DISTRIBUTION WIDTH 16.9 % (11.5-14.5)
[2017-10-25 06:45] LABS: ALB/GLOB RATIO 0.7 (1.1-1.8); ALBUMIN 2.5 g/dL (3.0-4.8); CALCIUM 8.2 mg/dL (8.4-10.5)
[2017-10-25] MEDS: Arformoterol 15 mcg/2 ml Inh Sol IH SCH ×2 (07:54→19:28)
[2017-10-25] MEDS: Budesonide 0.5 mg/2 ml Inhal Susp UD IH SCH ×2 (07:54→19:29)
[2017-10-25 08:11] LABS: EOSINOPHIL 7 % (0.0-3.0); LYMPHOCYTE 43 % (22.0-35.0); MONOCYTE 11 % (1.0-6.0); NEUTROPHIL 39 % (50.0-70.0); PLATELET ESTIMATE LOW (NORMAL)
[2017-10-25] MEDS: Omega-3-Acid Ethyl Esters 1 GM Cap PO SCH ×2 (10:15→18:24)
[2017-10-25] MEDS: Insulin Reg-HIGH-Coverage SC SCH ×4 (11:30→22:13)
--- NOTE | 2017-10-25 12:36 | CP.PCM.PN ---
<Asia Aguila - Last Filed: 10/25/17 12:36> Subjective - Date & Time of Evaluation Date of Evaluation: 10/25/17 Time of Evaluation: 07:00 - Subjective Subjective: PGY-[address] Potter overall dark bloody decreases in amount and frequency. 2 yesterday, 3 episodes over night. Denies dizzy, cp, sob, n/v/ Objective - Vital Signs/Intake and Output Vital Signs (last 24 hours): Temp Pulse Resp BP Pulse Ox 97.3 F L 80 20 134/54 L 100 10/25/17 11:15 10/25/17 11:15 10/25/17 11:15 10/25/17 11:15 10/25/17 05:50 Intake and Output: 10/25/17 10/25/17 06:59 18:59 Intake Total 690 Balance 690 - Medications Medications: Current Medications Albuterol/Ipratropium (Duoneb 3 Mg/0.5 Mg (3 Ml) Ud) 3 ml IH [id number] PRN PRN Reason: Shortness of Breath Last Admin: 10/23/17 13:35 Dose: 3 ml Arformoterol Tartrate (Brovana) 15 mcg IH [id number] [facility] Last Admin: 10/25/17 07:54 Dose: 15 mcg Aspirin (Ecotrin) 81 mg PO DAILY [facility] Last Admin: 10/22/17 09:33 Dose: 81 mg Atorvastatin Calcium (Lipitor) 40 mg PO DIN [facility] Last Admin: 10/24/17 17:44 Dose: 40 mg Bacitracin (Bacitracin) 1 ea TOP BID [facility] Last Admin: 10/23/17 17:10 Dose: Not Given Budesonide (Pulmicort Respules) 0.5 mg IH [id number] [facility] Last Admin: 10/25/17 07:54 Dose: 0.5 mg Calcium Acetate (Phoslo) 1,334 mg PO WM [facility] Last Admin: 10/25/17 08:46 Dose: Not Given Diphenhydramine HCl (Benadryl) 25 mg PO HS PRN PRN Reason: Insomnia Last Admin: 10/24/17 22:03 Dose: 25 mg Ergocalciferol (Drisdol 50,000 Intl Units Cap) 1 cap PO WED [facility] Last Admin: 10/18/17 12:32 Dose: 1 cap Fenofibrate (Tricor) 145 mg PO DAILY [facility] Last Admin: 10/24/17 09:47 Dose: 145 mg Hydralazine HCl (Apresoline) 25 mg PO BID [facility] Last Admin: 10/21/17 17:04 Dose: Not Given Micafungin Sodium 100 mg/ (Sodium Chloride) 100 mls @ 100 mls/hr IV DAILY [facility] PRN Reason: Protocol Stop: 10/26/17 10:01 Last Admin: 10/24/17 09:41 Dose: 100 mls/hr Argatroban 250 mg/ Dextrose 252.5 mls @ 10.5 mls/hr IV .Q24H [facility]; 2 MCG/KG/MIN PRN Reason: Protocol Last Admin: 10/23/17 17:08 Dose: 10.5 mls/hr Insulin Human NPH (Humulin N) 20 units SC QPM [facility] Last Admin: 10/23/17 19:09 Dose: Not Given Insulin Human Regular (Humulin R High) 0 units SC ACHS [facility] PRN Reason: Protocol Last Admin: 10/24/17 23:29 Dose: Not Given Latanoprost (Xalatan Opht) 0 ml OU HS [facility] Last Admin: 10/24/17 22:03 Dose: 2.5 ml Levothyroxine Sodium (Synthroid) 25 mcg PO 0600 [facility] Last Admin: 10/25/17 06:18 Dose: 25 mcg Loratadine (Claritin) 10 mg PO HS [facility] Last Admin: 10/24/17 22:03 Dose: 10 mg Metoprolol Tartrate (Lopressor) 25 mg PO BID [facility] Last Admin: 10/24/17 17:40 Dose: 25 mg Montelukast Sodium (Singulair) 10 mg PO HS [facility] Last Admin: 10/24/17 22:03 Dose: 10 mg Multivitamins (Thera Tab) 1 tab PO DAILY [facility] Last Admin: 10/24/17 09:29 Dose: 1 tab Salmeterol Xinafoate /Fluticaso [Advair Hfa 230-21] 1 puff IH BID [facility] Last Admin: 10/24/17 18:02 Dose: Not Given Nhypf-2-Icnb Ethyl Esters (Lovaza) 2 gm PO BID [facility] Last Admin: 10/24/17 18:00 Dose: Not Given Ondansetron HCl (Zofran Inj) 4 mg IVP Q6H PRN PRN Reason: Nausea/Vomiting Last Admin: 10/23/17 06:48 Dose: 4 mg Oxycodone/Acetaminophen (Percocet 5/325 Mg Tab) 1 tab PO BID PRN PRN Reason: pain Stop: 10/27/17 19:10 Last Admin: 10/25/17 08:40 Dose: 1 tab Oxycodone/Acetaminophen (Percocet 5/325 Mg Tab) 2 tab PO Q4H PRN PRN Reason: foot pain Stop: 10/27/17 19:13 Pregabalin (Lyrica) 50 mg PO [facility] Last Admin: 10/24/17 22:03 Dose: 50 mg Sevelamer HCl (Renagel) 1,600 mg PO [facility] Last Admin: 10/25/17 08:46 Dose: Not Given Sodium Chloride ([place] Nasal [place]) 0 ml NS Q2H PRN PRN Reason: Nasal congestion Tamsulosin HCl (Flomax) 0.4 mg PO [facility] Last Admin: 10/24/17 22:03 Dose: 0.4 mg Ticagrelor (Brilinta) 90 mg PO BID [facility] Last Admin: 10/19/17 17:13 Dose: 90 mg - Labs Labs: 10/25/17 06:24 10/25/17 06:24 PT 17.9 SECONDS (9.4-12.5) H 10/20/17 07:00 INR 1.54 10/20/17 07:00 APTT 80.4 Seconds (25.1-36.5) H 10/23/17 19:54 - Constitutional Appears: No Acute Distress - Head Exam Head Exam: ATRAUMATIC, NORMAL INSPECTION, NORMOCEPHALIC - Eye Exam Eye Exam: EOMI, Normal appearance, PERRL. absent: Scleral icterus Pupil Exam: NORMAL ACCOMODATION - ENT Exam ENT Exam: Mucous Membranes Moist - Neck Exam Additional comments: supple - Respiratory Exam Respiratory Exam: Clear to Ausculation Bilateral. absent: Rales, Rhonchi, Wheezes - Cardiovascular Exam Cardiovascular Exam: REGULAR RHYTHM, +S1, +S2 - GI/Abdominal Exam GI & Abdominal Exam: Soft, Normal Bowel Sounds. absent: Tenderness - Extremities Exam Extremities Exam: absent: Calf Tenderness, Tenderness Additional comments: dressing R with mild serous strike-through - Back Exam Back Exam: absent: CVA tenderness (L), CVA tenderness (R) - Neurological Exam Neurological Exam: Alert, Awake, Oriented x3 - Psychiatric Exam Psychiatric exam: Normal Affect, Normal Mood - Skin Skin Exam: Dry, Warm Assessment and Plan - Assessment and Plan (Free Text) Plan: Mr Berger, 52 M recently s/p transmetatarsal amputation of the right foot () due to wet gangrene to the right foot and bone exposure. He is on Dual antiplatelet for recent cardiac stent in May. His RLE stump is not healing, possibly because he is a vasculopath and he weight bear despite warning. Due to the non-healing wound due to poor perfusion, he was scheduled for R BKA. The surgery was delayed twice because he developed fungemia on zyvox, merem, micafungin. 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 He was transferred to ICU for agatroban but developed GI bleed. Now off ASA, brilinta, heparin SC, agatroban. 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 Stop protonix, merem, zyvox to r/o other medication etiology Fungemia (10/16), Had ruled out thrombi @ pacemaker lead. Had ruled out Opthalmitis. Anemia at 7.3 (baseline 8-9), Anemia of chronic disease and due to ESRD, asymptomatic, s/p 3u PRBC. Goal to reach Hb 10 for surgery. CAD s/p 2 YORDY in LAD (06/13/17) on dual-antiplatelet, CHF, pacemaker (metronic) HTN/PVD RENATA, cannot tolerate CPAP; COPD; severe pulmonary HTN DM_2__, peripheral neuropathy Hx CVA with L residual weakness ESRD MWF due to HTN/DM, with Anemia, Hyperphosphatemia, Secondary Hyperparathyroidism Hypothyroidism Moxifloxacin and PCN allergy P: GI bleed. trend h/h q8. Hb stable at 7.8. Will transfuse 2u pRBC today. For HIT, Argatroban gtt held. Pending heparin ab and Serotonin release assy result. For fungemia, mycafungin, day __7___. Stopped Merem & Linezolid (x 6 day) for possible cause of low platelet; Repeat blood culture (10/19) negative. Echo showed EF 55. RVSP 49. Aortic cusp calcified cannot r/o veg. No sig changes to echo 1 month ago. LASHAWN no vegetation in pacemaker lead. pthalmologist has already ruled out endopthalmitis. BKA was delayed for fungemia and HIT. As for non-healing ulcer, Percocet Q6 PRN ; Lyrica HS Lipitor 40, fenofibrate, lovaza 2gm bid Cardiology cleared. Pending ID and heme clearance for surgery High uriel-operative cardiac risk. For anemia, sp 5u RBC. goal Hb 10 for surgery. For thrombocytopenia, s/p 2 plt For CAD, Continue metoprolol, lipitor. ASA/Brilinta on hold. For HTN, hydralazine 25 bid, For DM2, hold glipizide, reduce humulin N to 20u per last hospital insulin requirement, lispro-low sliding scale For chronic ESRD, HD MWF. Continue Phoslo, Vit D2, multivitamin, sevelamer For COPD/RENATA, HOB 45, Duoneb PRN, brovana, budesonide, montelikast. Cannot tolerate CPAP For Glucoma, bimatoprost For insomnia, benadryl HS prn For hypothyroidism, synthroid 25 Flomax for Bph Prophylaxis: high risk of GI stress ulcer due to bleed/fungemia. consider Use low dose pepcid, pending GI rec. 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 Off protonix due to low plt. Off anticoagulant due to GI bleed Consult: Renan Figueroa, Dre, Rich, Jensen Escalera, Anabelle, Cyndee Access: L AV fistula. R IV s/r/d/w Dr. Potter <Gallo Potter S - Last Filed: 10/25/17 21:30> Objective - Vital Signs/Intake and Output Vital Signs (last 24 hours): Temp Pulse Resp BP Pulse Ox 97.3 F L 98 H 29 H 147/62 100 10/25/17 11:15 10/25/17 20:45 10/25/17 20:45 10/25/17 20:45 10/25/17 20:45 Intake and Output: 10/25/17 10/26/17 18:59 06:59 Intake Total 1110 Output Total 1999 Balance -890 - Medications Medications: Current Medications Albuterol/Ipratropium (Duoneb 3 Mg/0.5 Mg (3 Ml) Ud) 3 ml IH [id number] PRN PRN Reason: Shortness of Breath Last Admin: 10/23/17 13:35 Dose: 3 ml Arformoterol Tartrate (Brovana) 15 mcg IH [id number] [facility] Last Admin: 10/25/17 19:28 Dose: 15 mcg Aspirin (Ecotrin) 81 mg PO DAILY [facility] Last Admin: 10/22/17 09:33 Dose: 81 mg Atorvastatin Calcium (Lipitor) 40 mg PO DIN [facility] Last Admin: 10/25/17 18:36 Dose: 40 mg Bacitracin (Bacitracin) 1 ea TOP BID [facility] Last Admin: 10/25/17 14:49 Dose: 1 ea Budesonide (Pulmicort Respules) 0.5 mg IH [id number] [facility] Last Admin: 10/25/17 19:29 Dose: 0.5 mg Calcium Acetate (Phoslo) 1,334 mg PO WM [facility] Last Admin: 10/25/17 18:22 Dose: 1,334 mg Diphenhydramine HCl (Benadryl) 25 mg PO HS PRN PRN Reason: Insomnia Last Admin: 10/24/17 22:03 Dose: 25 mg Ergocalciferol (Drisdol 50,000 Intl Units Cap) 1 cap PO WED [facility] Last Admin: 10/25/17 15:12 Dose: Not Given Fenofibrate (Tricor) 145 mg PO DAILY [facility] Last Admin: 10/25/17 15:34 Dose: Not Given Hydralazine HCl (Apresoline) 25 mg PO BID [facility] Last Admin: 10/21/17 17:04 Dose: Not Given Micafungin Sodium 100 mg/ (Sodium Chloride) 100 mls @ 100 mls/hr IV DAILY [facility] PRN Reason: Protocol Stop: 10/26/17 10:01 Last Admin: 10/25/17 14:51 Dose: 100 mls/hr Argatroban 250 mg/ Dextrose 252.5 mls @ 10.5 mls/hr IV .Q24H [facility]; 2 MCG/KG/MIN PRN Reason: Protocol Last Admin: 10/23/17 17:08 Dose: 10.5 mls/hr Insulin Human NPH (Humulin N) 20 units SC QPM [facility] Last Admin: 10/25/17 18:35 Dose: Not Given Insulin Human Regular (Humulin R High) 0 units SC ACHS [facility] PRN Reason: Protocol Last Admin: 10/25/17 18:35 Dose: Not Given Latanoprost (Xalatan Opht) 0 ml OU HS [facility] Last Admin: 10/25/17 21:12 Dose: 2.5 ml Levothyroxine Sodium (Synthroid) 25 mcg PO 0600 [facility] Last Admin: 10/25/17 06:18 Dose: 25 mcg Loratadine (Claritin) 10 mg PO HS [facility] Last Admin: 10/25/17 21:12 Dose: 10 mg Metoprolol Tartrate (Lopressor) 25 mg PO BID [facility] Last Admin: 10/25/17 18:37 Dose: 25 mg Montelukast Sodium (Singulair) 10 mg PO [facility] Last Admin: 10/25/17 21:12 Dose: 10 mg Multivitamins (Thera Tab) 1 tab PO DAILY [facility] Last Admin: 10/25/17 15:33 Dose: Not Given Salmeterol Xinafoate /Fluticaso [Advair Hfa 230-21] 1 puff IH BID [facility] Last Admin: 10/24/17 18:02 Dose: Not Given Fcjaw-9-Awwp Ethyl Esters (Lovaza) 2 gm PO BID [facility] Last Admin: 10/25/17 18:24 Dose: 2 gm Ondansetron HCl (Zofran Inj) 4 mg IVP Q6H PRN PRN Reason: Nausea/Vomiting Last Admin: 10/23/17 06:48 Dose: 4 mg Oxycodone/Acetaminophen (Percocet 5/325 Mg Tab) 1 tab PO BID PRN PRN Reason: pain Stop: 10/27/17 19:10 Last Admin: 10/25/17 18:24 Dose: 1 tab Oxycodone/Acetaminophen (Percocet 5/325 Mg Tab) 2 tab PO Q4H PRN PRN Reason: foot pain Stop: 10/27/17 19:13 Pregabalin (Lyrica) 50 mg PO HS [facility] Last Admin: 10/25/17 21:11 Dose: 50 mg Sevelamer HCl (Renagel) 1,600 mg PO WM [facility] Last Admin: 10/25/17 18:38 Dose: 1,600 mg Sodium Chloride ([place] Nasal [place]) 0 ml NS Q2H PRN PRN Reason: Nasal congestion Tamsulosin HCl (Flomax) 0.4 mg PO HS [facility] Last Admin: 10/25/17 21:12 Dose: 0.4 mg Ticagrelor (Brilinta) 90 mg PO BID [facility] Last Admin: 10/19/17 17:13 Dose: 90 mg - Labs Labs: 10/25/17 15:30 10/25/17 06:24 PT 17.9 SECONDS (9.4-12.5) H 10/20/17 07:00 INR 1.54 10/20/17 07:00 APTT 80.4 Seconds (25.1-36.5) H 10/23/17 19:54 Assessment and Plan - Assessment and Plan (Free Text) Plan: Pt seen and examined. I have reviewed the note of the biomedical field service engineer and agree with it. I have discussed the assessment and plan with the resident. I have reviewed the patient's labs and medications. Pt with fungemia. He is to get an endoscopy today. He will get HD today. He will get transfusion of PRBC. Waiting for BKA. Good L AVF. Pt had been given thrombocytopenia.
--- NOTE | 2017-10-25 13:06 | PN ---
Copied To: Jarred Erickson MD Attending MD: Jarred Erickson MD DATE: 10/25/2017 REASON FOR CONSULTATION AND FOLLOWUP: Preop evaluation, risk stratification for possible right BKA. SUBJECTIVE: The patient denies any chest pain, shortness of breath, or any palpitation. N.p.o. for colonoscopy and endoscopy today. OBJECTIVE: GENERAL: Not in apparent distress, lying flat in the bed. VITAL SIGNS: Temperature afebrile, heart rate 60, blood pressure 112/42. HEENT: PERRLA. Extraocular muscles are intact. NECK: Supple. No carotid bruits. No thyromegaly. CHEST: Clear to auscultation. HEART: S1 and S2 regular. ABDOMEN: Soft. EXTREMITIES: Clubbing and cyanosis negative. LABORATORY DATA: WBC 6, hemoglobin 7.8, hematocrit 23.9, platelet count 71. Chemistries show sodium 130, potassium 4.2, chloride 100, carbon dioxide 27, anion gap of 12, BUN 41, creatinine 6.1. IMPRESSION: Severe peripheral arterial disease, status post right transmetatarsal amputation, continued source of sepsis, fungemia, possibly secondary to superinfection, partially treated with antibiotics. LASHAWN done, no evidence of acute endocarditis. History of coronary artery disease, status post recent stent in 05/2017; history of pacemaker because of junctional bradycardia and symptomatic, syncope status post permanent pacemaker; anemia; thrombocytopenia; end-stage renal disease, on dialysis; full-blown complications of diabetes including diabetic retinopathy, nephropathy, and neuropathy. RECOMMENDATIONS: Awaiting for amputation, optimize medical condition before the patient goes to OR, keep hemoglobin around 10 and platelet above 50,000 before the patient goes to OR. The patient is going to OR for endoscopy because bleeding scan is positive for GI bleed. From the cardiac point of view, the patient can go for amputation as a high-risk procedure. No absolute contraindication because no evidence of CHF, no evidence of angina or arrhythmia, but because of underlying so much comorbidity, the patient would be high-risk for surgery. Again, no absolute contraindication. We will follow closely. Brilinta is on hold for possible OR. Once the amputation is done and no issues with GI bleed, then we can continue Brilinta; now the patient is actively bleeding, so the patient is going for GI workup, and Brilinta is on hold anyway for preparation for OR. We will follow with you. Thank you, Dr. Potter, for providing us the opportunity in taking care of the patient, Jason Berger. Jarred Erickson MD
--- NOTE | 2017-10-25 14:15 | PN ---
Copied To: Jarred Escalera MD Attending MD: Jarred Escalera MD DATE: 10/25/2017 PULMONARY PROGRESS NOTE REFERRING PHYSICIAN: Gallo Potter MD. SUBJECTIVE: He just come back from dialysis. Night was unremarkable. Yesterday, when noticed, no rectal bleed. Today, hemodynamically stable. No cough. No sputum production. No nausea, no vomiting, no diarrhea. Still has a right foot pain. OBJECTIVE: GENERAL: In no acute distress. VITAL SIGNS: Temperature is 98, heart rate is 92, respiratory rate is 20, blood pressure 134/54, pulse ox 100% on nasal cannula. HEENT: Moist mucous membrane. Crowded airway. NECK: Supple. No JVD. LUNGS: Have fair airflow with rhonchi. HEART: S1 and S2. ABDOMEN: Soft, nontender, no organomegaly. EXTREMITY: Right foot has a dressing. NEUROLOGICAL: Awake and alert. Follows simple command. MEDICATIONS: He is on hydralazine 25 mg twice a day; argatroban IV, which is on hold; bacitracin ointment to affected area twice a day; Benadryl 25 mg at bedtime; Brilinta 90 mg twice a day; Brovana inhaled twice a day; Claritin 10 mg daily; vitamin D 50,000 units weekly; DuoNeb every 6 hours p.r.n.; Ecotrin 81 mg daily; Flomax 0.4 mg daily; insulin coverage; Lipitor 40 mg daily; metoprolol tartrate 25 mg twice a day; Lovaza since 2 g p.o. twice a day; Lyrica 50 mg at bedtime; micafungin 1 mg daily; nasal saline 2 sprays to each nostril every 2 hours p.r.n.; Percocet 5/325 one tab every 12 hours p.r.n. and also PhosLo with the meals; Pulmicort inhaled twice a day; Renagel with the meals; Synthroid 25 mcg daily; multivitamins daily; Tricor 145 mcg daily; Zofran p.r.n. basis. LABORATORY DATA: Shows hemoglobin 7.8, hematocrit 23.9, WBC 6, platelet count is 71. PTT is 80. Sodium 135, potassium 4.2, chloride 100, bicarbonate 27, BUN 41, creatinine 6.1, glucose 133, calcium is 8.2, AST 41, ALT 24, alk phos is 62. Albumin is 2.5. IMPRESSION AND PLAN: Severe peripheral vascular disease, ended up with nonhealing ulcer requiring partial amputation of the right foot, presently is nonhealing at amputation site requiring probably below-knee amputation, ended up with further complications including fungemia, being treated. Had a thrombocytopenia, versus heparin-induced thrombocytopenia, been on argatroban, ended up with GI bleed, so argatroban was stopped. Presently, there is no active bleed. Yesterday, bleeding scan was positive for rectal bleed though. Other issues; chronic obstructive lung disease, obstructive sleep apnea syndrome, renal failure, dialysis dependent, peripheral neuropathy, hypertension, cardiac diastolic dysfunction. Spoke to nursing staff. Sleep apnea precaution. Keep head at 45 degrees. He is noncompliant with the continuous positive airway pressure, refusing to use. Understanding risk benefit ratio. Continue inhaled bronchodilator, gastric prophylaxis. Scheduled for endoscopy. Follow up labs in the morning. Thank you and we will follow with you. Jarred Escalera MD
[2017-10-25] MEDS ORDERED: Etomidate 20 mg/10ml Inj IV ONE ×2 (14:48→14:49)
[2017-10-25] MEDS: Bacitracin 500 Units/gm Oint Foilpak UD TOP SCH (14:49)
[2017-10-25] MEDS ORDERED: ePHEDrine 50 mg/ml Inj ONE (14:49)
[2017-10-25] MEDS ORDERED: Vasopressin 20 Units/ml Inj ONE (14:51)
[2017-10-25] MEDS: Micafungin 100 MG in Sodium Chloride 0.9% 100 ML IV SCH (14:51)
[2017-10-25] MEDS: Ergocalciferol 50,000 Intl Units Cap PO SCH (15:12)
[2017-10-25] MEDS: Multivitamin Therapeutic Tab PO SCH (15:33)
[2017-10-25 15:41] LABS: HEMOGLOBIN 9.4 g/dL (14.0-18.0)
--- NOTE | 2017-10-25 16:49 | CP.PCM.PN ---
Subjective - Date & Time of Evaluation Date of Evaluation: 10/25/17 Time of Evaluation: 08:40 - Subjective Subjective: Patient is comfortable in bed, no fevers, not in distress Objective - Vital Signs/Intake and Output Vital Signs (last 24 hours): Temp Pulse Resp BP Pulse Ox 97.3 F L 93 H 11 L 144/70 97 10/25/17 11:15 10/25/17 15:20 10/25/17 15:20 10/25/17 14:50 10/25/17 15:46 Intake and Output: 10/25/17 10/25/17 06:59 18:59 Intake Total 690 Balance 690 - Medications Medications: Current Medications Albuterol/Ipratropium (Duoneb 3 Mg/0.5 Mg (3 Ml) Ud) 3 ml IH [id number] PRN PRN Reason: Shortness of Breath Last Admin: 10/23/17 13:35 Dose: 3 ml Arformoterol Tartrate (Brovana) 15 mcg IH [id number] [facility] Last Admin: 10/25/17 07:54 Dose: 15 mcg Aspirin (Ecotrin) 81 mg PO DAILY [facility] Last Admin: 10/22/17 09:33 Dose: 81 mg Atorvastatin Calcium (Lipitor) 40 mg PO DIN [facility] Last Admin: 10/24/17 17:44 Dose: 40 mg Bacitracin (Bacitracin) 1 ea TOP BID [facility] Last Admin: 10/25/17 14:49 Dose: 1 ea Budesonide (Pulmicort Respules) 0.5 mg IH [id number] [facility] Last Admin: 10/25/17 07:54 Dose: 0.5 mg Calcium Acetate (Phoslo) 1,334 mg PO WM [facility] Last Admin: 10/25/17 15:32 Dose: Not Given Diphenhydramine HCl (Benadryl) 25 mg PO HS PRN PRN Reason: Insomnia Last Admin: 10/24/17 22:03 Dose: 25 mg Ergocalciferol (Drisdol 50,000 Intl Units Cap) 1 cap PO WED [facility] Last Admin: 10/25/17 15:12 Dose: Not Given Fenofibrate (Tricor) 145 mg PO DAILY [facility] Last Admin: 10/25/17 15:34 Dose: Not Given Hydralazine HCl (Apresoline) 25 mg PO BID [facility] Last Admin: 10/21/17 17:04 Dose: Not Given Micafungin Sodium 100 mg/ (Sodium Chloride) 100 mls @ 100 mls/hr IV DAILY [facility] PRN Reason: Protocol Stop: 10/26/17 10:01 Last Admin: 10/25/17 14:51 Dose: 100 mls/hr Argatroban 250 mg/ Dextrose 252.5 mls @ 10.5 mls/hr IV .Q24H [facility]; 2 MCG/KG/MIN PRN Reason: Protocol Last Admin: 10/23/17 17:08 Dose: 10.5 mls/hr Insulin Human NPH (Humulin N) 20 units SC QPM [facility] Last Admin: 10/23/17 19:09 Dose: Not Given Insulin Human Regular (Humulin R High) 0 units SC ACHS [facility] PRN Reason: Protocol Last Admin: 10/25/17 15:27 Dose: Not Given Latanoprost (Xalatan Opht) 0 ml OU HS [facility] Last Admin: 10/24/17 22:03 Dose: 2.5 ml Levothyroxine Sodium (Synthroid) 25 mcg PO 0600 [facility] Last Admin: 10/25/17 06:18 Dose: 25 mcg Loratadine (Claritin) 10 mg PO HS [facility] Last Admin: 10/24/17 22:03 Dose: 10 mg Metoprolol Tartrate (Lopressor) 25 mg PO BID [facility] Last Admin: 10/25/17 14:50 Dose: Not Given Montelukast Sodium (Singulair) 10 mg PO HS [facility] Last Admin: 10/24/17 22:03 Dose: 10 mg Multivitamins (Thera Tab) 1 tab PO DAILY [facility] Last Admin: 10/25/17 15:33 Dose: Not Given Salmeterol Xinafoate /Fluticaso [Advair Hfa 230-21] 1 puff IH BID [facility] Last Admin: 10/24/17 18:02 Dose: Not Given Oithy-5-Gzbn Ethyl Esters (Lovaza) 2 gm PO BID [facility] Last Admin: 10/25/17 10:15 Dose: Not Given Ondansetron HCl (Zofran Inj) 4 mg IVP Q6H PRN PRN Reason: Nausea/Vomiting Last Admin: 10/23/17 06:48 Dose: 4 mg Oxycodone/Acetaminophen (Percocet 5/325 Mg Tab) 1 tab PO BID PRN PRN Reason: pain Stop: 10/27/17 19:10 Last Admin: 10/25/17 08:40 Dose: 1 tab Oxycodone/Acetaminophen (Percocet 5/325 Mg Tab) 2 tab PO Q4H PRN PRN Reason: foot pain Stop: 10/27/17 19:13 Pregabalin (Lyrica) 50 mg PO HS [facility] Last Admin: 10/24/17 22:03 Dose: 50 mg Sevelamer HCl (Renagel) 1,600 mg PO WM [facility] Last Admin: 10/25/17 15:33 Dose: Not Given Sodium Chloride ([place] Nasal [place]) 0 ml NS Q2H PRN PRN Reason: Nasal congestion Tamsulosin HCl (Flomax) 0.4 mg PO [facility] Last Admin: 10/24/17 22:03 Dose: 0.4 mg Ticagrelor (Brilinta) 90 mg PO BID [facility] Last Admin: 10/19/17 17:13 Dose: 90 mg - Labs Labs: 10/25/17 15:30 10/25/17 06:24 PT 17.9 SECONDS (9.4-12.5) H 10/20/17 07:00 INR 1.54 10/20/17 07:00 APTT 80.4 Seconds (25.1-36.5) H 10/23/17 19:54 - Constitutional Appears: Chronically Ill - Head Exam Head Exam: NORMAL INSPECTION - Respiratory Exam Respiratory Exam: Decreased Breath Sounds - Cardiovascular Exam Cardiovascular Exam: +S1, +S2 - GI/Abdominal Exam GI & Abdominal Exam: Soft. 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 diff. associated diarrhea ESRD on HD DM obesity CAD S/P PCI retinopathy history of pancreatitis Plan continue Mycamine for C. glabrata in the blood day 7; patient will need Ophtho exam - patient may need up to 4 weeks of antifungal therapy patient on Argatroban drip for possible HIT, then for BKA once platelet count has improved will continue to follow clinically
[2017-10-25] MEDS: Insulin Human NPH 1 UNITS/0.01 ML SC SCH (18:35)
[2017-10-25] MEDS: Latanoprost 2.5 ml Opht Soln OU SCH (21:12)
[2017-10-26] MEDS: Levothyroxine 25 MCG TAB PO SCH (05:33)
[2017-10-26 06:17] LABS: BASO # 0.03 K/mm3 (0.0-2.0); BASO % 0.6 % (0.0-3.0); EOS # 0.2 (0.0-0.7); EOS % 4.2 % (1.5-5.0); GRAN # 2.3 (1.4-6.5); GRAN % 48.5 % (50.0-68.0); HEMOGLOBIN 9.3 g/dL (14.0-18.0); LYMPH # 1.4 (1.2-3.4); LYMPH % 30.1 % (22.0-35.0); MEAN CELL VOLUME 90.3 fl (80.0-105.0); MEAN CORPUSCULAR HEMOGLOBIN 29.1 pg (25.0-35.0); MEAN CORPUSCULAR HGB CONC 32.2 g/dl (31.0-37.0); MEAN PLATELET VOLUME 10.8 fl (7.0-11.0); MONO # 0.8 (0.1-0.6); MONO % 16.6 % (1.0-6.0); RBC 3.2 10^6/uL (3.5-6.1); RED CELL DISTRIBUTION WIDTH 16.8 % (11.5-14.5); WHITE BLOOD COUNT 4.8 10^3/ul (4.5-11.0)
[2017-10-26 06:44] LABS: ALB/GLOB RATIO 0.7 (1.1-1.8); ALBUMIN 2.6 g/dL (3.0-4.8)
[2017-10-26] MEDS: Arformoterol 15 mcg/2 ml Inh Sol IH SCH ×2 (07:23→20:29)
[2017-10-26] MEDS: Budesonide 0.5 mg/2 ml Inhal Susp UD IH SCH ×2 (07:24→20:29)
--- NOTE | 2017-10-26 07:38 | CP.PCM.PN ---
<Jojo Crouch - Last Filed: 10/26/17 12:06> Subjective - Date & Time of Evaluation Date of Evaluation: 10/26/17 Time of Evaluation: 06:45 - Subjective Subjective: Jojo Crouch DO, PGY-2: GI progress note for Dr. Ahn Patient was seen and examined at bedside. Patient reports no abdominal pain, nausea, vomiting, hematomesis or passing any bowel movements overnight. Objective - Vital Signs/Intake and Output Vital Signs (last 24 hours): Temp Pulse Resp BP Pulse Ox 97.8 F 72 20 128/58 L 100 10/26/17 06:00 10/26/17 06:00 10/26/17 06:00 10/26/17 06:00 10/26/17 06:00 Intake and Output: 10/26/17 10/26/17 06:59 18:59 Intake Total 120 Balance 120 - Medications Medications: Current Medications Albuterol/Ipratropium (Duoneb 3 Mg/0.5 Mg (3 Ml) Ud) 3 ml IH [id number] PRN PRN Reason: Shortness of Breath Last Admin: 10/23/17 13:35 Dose: 3 ml Arformoterol Tartrate (Brovana) 15 mcg IH [id number] [facility] Last Admin: 10/26/17 07:23 Dose: 15 mcg Aspirin (Ecotrin) 81 mg PO DAILY [facility] Last Admin: 10/22/17 09:33 Dose: 81 mg Atorvastatin Calcium (Lipitor) 40 mg PO DIN [facility] Last Admin: 10/25/17 18:36 Dose: 40 mg Bacitracin (Bacitracin) 1 ea TOP BID [facility] Last Admin: 10/25/17 14:49 Dose: 1 ea Budesonide (Pulmicort Respules) 0.5 mg IH [id number] [facility] Last Admin: 10/26/17 07:24 Dose: 0.5 mg Calcium Acetate (Phoslo) 1,334 mg PO WM [facility] Last Admin: 10/25/17 18:22 Dose: 1,334 mg Diphenhydramine HCl (Benadryl) 25 mg PO HS PRN PRN Reason: Insomnia Last Admin: 10/24/17 22:03 Dose: 25 mg Ergocalciferol (Drisdol 50,000 Intl Units Cap) 1 cap PO WED [facility] Last Admin: 10/25/17 15:12 Dose: Not Given Fenofibrate (Tricor) 145 mg PO DAILY [facility] Last Admin: 10/25/17 15:34 Dose: Not Given Hydralazine HCl (Apresoline) 25 mg PO BID [facility] Last Admin: 10/21/17 17:04 Dose: Not Given Micafungin Sodium 100 mg/ (Sodium Chloride) 100 mls @ 100 mls/hr IV DAILY [facility] PRN Reason: Protocol Stop: 10/26/17 10:01 Last Admin: 10/25/17 14:51 Dose: 100 mls/hr Argatroban 250 mg/ Dextrose 252.5 mls @ 10.5 mls/hr IV .Q24H [facility]; 2 MCG/KG/MIN PRN Reason: Protocol Last Admin: 10/23/17 17:08 Dose: 10.5 mls/hr Insulin Human NPH (Humulin N) 20 units SC QPM [facility] Last Admin: 10/25/17 18:35 Dose: Not Given Insulin Human Regular (Humulin R High) 0 units SC ACHS [facility] PRN Reason: Protocol Last Admin: 10/25/17 22:13 Dose: Not Given Latanoprost (Xalatan Opht) 0 ml OU HS [facility] Last Admin: 10/25/17 21:12 Dose: 2.5 ml Levothyroxine Sodium (Synthroid) 25 mcg PO 0600 [facility] Last Admin: 10/26/17 05:33 Dose: 25 mcg Loratadine (Claritin) 10 mg PO HS [facility] Last Admin: 10/25/17 21:12 Dose: 10 mg Metoprolol Tartrate (Lopressor) 25 mg PO BID [facility] Last Admin: 10/25/17 18:37 Dose: 25 mg Montelukast Sodium (Singulair) 10 mg PO HS [facility] Last Admin: 10/25/17 21:12 Dose: 10 mg Multivitamins (Thera Tab) 1 tab PO DAILY [facility] Last Admin: 10/25/17 15:33 Dose: Not Given Salmeterol Xinafoate /Fluticaso [Advair Hfa 230-21] 1 puff IH BID [facility] Last Admin: 10/24/17 18:02 Dose: Not Given Prrbn-7-Zqeb Ethyl Esters (Lovaza) 2 gm PO BID [facility] Last Admin: 10/25/17 18:24 Dose: 2 gm Ondansetron HCl (Zofran Inj) 4 mg IVP Q6H PRN PRN Reason: Nausea/Vomiting Last Admin: 10/23/17 06:48 Dose: 4 mg Oxycodone/Acetaminophen (Percocet 5/325 Mg Tab) 1 tab PO BID PRN PRN Reason: pain Stop: 10/27/17 19:10 Last Admin: 10/25/17 18:24 Dose: 1 tab Oxycodone/Acetaminophen (Percocet 5/325 Mg Tab) 2 tab PO Q4H PRN PRN Reason: foot pain Stop: 10/27/17 19:13 Pregabalin (Lyrica) 50 mg PO [facility] Last Admin: 10/25/17 21:11 Dose: 50 mg Sevelamer HCl (Renagel) 1,600 mg PO [facility] Last Admin: 10/25/17 18:38 Dose: 1,600 mg Sodium Chloride ([place] Nasal [place]) 0 ml NS Q2H PRN PRN Reason: Nasal congestion Tamsulosin HCl (Flomax) 0.4 mg PO [facility] Last Admin: 10/25/17 21:12 Dose: 0.4 mg Ticagrelor (Brilinta) 90 mg PO BID [facility] Last Admin: 10/19/17 17:13 Dose: 90 mg - Labs Labs: 10/26/17 05:20 10/26/17 05:20 PT 17.9 SECONDS (9.4-12.5) H 10/20/17 07:00 INR 1.54 10/20/17 07:00 APTT 80.4 Seconds (25.1-36.5) H 10/23/17 19:54 - Constitutional Appears: Non-toxic, No Acute Distress - Head Exam Head Exam: ATRAUMATIC, NORMOCEPHALIC - Eye Exam Eye Exam: Conjunctival injection - ENT Exam ENT Exam: Mucous Membranes Moist - Neck Exam Neck Exam: Normal Inspection - Respiratory Exam Respiratory Exam: Decreased Breath Sounds (bilaterally), NORMAL BREATHING PATTERN - Cardiovascular Exam Cardiovascular Exam: RRR, +S1, +S2 - GI/Abdominal Exam GI & Abdominal Exam: Soft, Normal Bowel Sounds. absent: Guarding, Rebound - Extremities Exam Additional comments: right leg dressing intact - Neurological Exam Neurological Exam: Awake, Oriented x3 - Psychiatric Exam Psychiatric exam: Normal Affect, Normal Mood - Skin Skin Exam: Dry, Intact, Normal Color, Warm Assessment and Plan - Assessment and Plan (Free Text) Assessment: 52 year male with a past medical history of CAD on DAPT with Aspirin and Brillinta, ESRD on HD MWF, s/p transmetatarsal amputation of the right foot (), who was in preparation to undergo a right BKA due to a non-healing ulcer with superimposed fungemia that was complicated by a GI bleed while of an Argatroban drip for the treatment of HIT. The patient's Argatroban was held after he had bright red blood per rectum and he was transfused platelets and PRBCS supportively. He underwent a GI bleeding scan that showed increased activity in the rectum. The patient underwent an upper endoscopy and unprepped, flexible sigmoidoscopy that did not show any active bleeding. At this time, we recommend resuming the patient's Brillinta and aspirin. Case was reviewed and discussed with attending physician, Dr. Ahn <Jacquelin Ahn V - Last Filed: 10/26/17 23:24> Objective - Vital Signs/Intake and Output Vital Signs (last 24 hours): Temp Pulse Resp BP Pulse Ox 98.4 F 66 18 121/51 L 98 10/26/17 19:13 10/26/17 19:13 10/26/17 19:13 10/26/17 19:13 10/26/17 19:13 Intake and Output: 10/26/17 10/27/17 18:59 06:59 Intake Total 300 Output Total 0 Balance 300 - Medications Medications: Current Medications Albuterol/Ipratropium (Duoneb 3 Mg/0.5 Mg (3 Ml) Ud) 3 ml IH [id number] PRN PRN Reason: Shortness of Breath Last Admin: 10/23/17 13:35 Dose: 3 ml Arformoterol Tartrate (Brovana) 15 mcg IH [id number] [facility] Last Admin: 10/26/17 20:29 Dose: 15 mcg Aspirin (Ecotrin) 81 mg PO DAILY [facility] Atorvastatin Calcium (Lipitor) 40 mg PO DIN [facility] Last Admin: 10/26/17 17:30 Dose: 40 mg Bacitracin (Bacitracin) 1 ea TOP BID [facility] Last Admin: 10/26/17 17:30 Dose: 1 ea Budesonide (Pulmicort Respules) 0.5 mg IH [id number] [facility] Last Admin: 10/26/17 20:29 Dose: 0.5 mg Calcium Acetate (Phoslo) 1,334 mg PO WM [facility] Last Admin: 10/26/17 17:30 Dose: 667 mg Diphenhydramine HCl (Benadryl) 25 mg PO HS PRN PRN Reason: Insomnia Last Admin: 10/26/17 21:31 Dose: 25 mg Ergocalciferol (Drisdol 50,000 Intl Units Cap) 1 cap PO WED [facility] Last Admin: 10/25/17 15:12 Dose: Not Given Famotidine (Pepcid) 10 mg PO 2200 [facility] Last Admin: 10/26/17 21:31 Dose: 10 mg Fenofibrate (Tricor) 145 mg PO DAILY [facility] Last Admin: 10/26/17 10:17 Dose: 145 mg Hydralazine HCl (Apresoline) 25 mg PO BID [facility] Last Admin: 10/21/17 17:04 Dose: Not Given Argatroban 250 mg/ Dextrose 252.5 mls @ 10.5 mls/hr IV .Q24H [facility]; 2 MCG/KG/MIN PRN Reason: Protocol Last Admin: 10/23/17 17:08 Dose: 10.5 mls/hr Micafungin Sodium 100 mg/ (Sodium Chloride) 100 mls @ 100 mls/hr IV DAILY [facility] PRN Reason: Protocol Stop: 11/09/17 12:16 Last Admin: 10/26/17 13:14 Dose: Not Given Insulin Human NPH (Humulin N) 20 units SC QPM [facility] Last Admin: 10/26/17 17:23 Dose: Not Given Insulin Human Regular (Humulin R High) 0 units SC ACHS [facility] PRN Reason: Protocol Last Admin: 10/26/17 21:34 Dose: Not Given Latanoprost (Xalatan Opht) 0 ml OU HS [facility] Last Admin: 10/26/17 21:36 Dose: 2.5 ml Levothyroxine Sodium (Synthroid) 25 mcg PO 0600 [facility] Last Admin: 10/26/17 05:33 Dose: 25 mcg Loratadine (Claritin) 10 mg PO HS [facility] Last Admin: 10/26/17 21:33 Dose: 10 mg Metoprolol Tartrate (Lopressor) 25 mg PO BID [facility] Last Admin: 10/26/17 17:29 Dose: 25 mg Montelukast Sodium (Singulair) 10 mg PO HS [facility] Last Admin: 10/26/17 21:33 Dose: 10 mg Multivitamins (Thera Tab) 1 tab PO DAILY [facility] Last Admin: 10/26/17 10:18 Dose: 1 tab Salmeterol Xinafoate /Fluticaso [Advair Hfa 230-21] 1 puff IH BID [facility] Last Admin: 10/26/17 18:04 Dose: Not Given Yhrtv-2-Yxux Ethyl Esters (Lovaza) 2 gm PO BID [facility] Last Admin: 10/26/17 17:29 Dose: 1 gm Ondansetron HCl (Zofran Inj) 4 mg IVP Q6H PRN PRN Reason: Nausea/Vomiting Last Admin: 10/23/17 06:48 Dose: 4 mg Oxycodone/Acetaminophen (Percocet 5/325 Mg Tab) 1 tab PO BID PRN PRN Reason: pain Stop: 10/27/17 19:10 Last Admin: 10/25/17 18:24 Dose: 1 tab Oxycodone/Acetaminophen (Percocet 5/325 Mg Tab) 2 tab PO Q4H PRN PRN Reason: foot pain Stop: 10/27/17 19:13 Last Admin: 10/26/17 21:33 Dose: 2 tab Pregabalin (Lyrica) 50 mg PO [facility] Last Admin: 10/25/17 21:11 Dose: 50 mg Sevelamer HCl (Renagel) 1,600 mg PO [facility] Last Admin: 10/26/17 17:29 Dose: 800 mg Sodium Chloride ([place] Nasal [place]) 0 ml NS Q2H PRN PRN Reason: Nasal congestion Tamsulosin HCl (Flomax) 0.4 mg PO [facility] Last Admin: 10/26/17 21:34 Dose: 0.4 mg Ticagrelor (Brilinta) 90 mg PO BID [facility] Last Admin: 10/19/17 17:13 Dose: 90 mg - Labs Labs: 10/26/17 05:20 10/26/17 05:20 PT 17.9 SECONDS (9.4-12.5) H 10/20/17 07:00 INR 1.54 10/20/17 07:00 APTT 80.4 Seconds (25.1-36.5) H 10/23/17 19:54 Attending/Attestation - Attestation I have personally seen and examined this patient.: Yes I have fully participated in the care of the patient.: Yes I have reviewed all pertinent clinical information, including history, physical exam and plan: Yes Notes (Text): p 10/26/17 23:10
[2017-10-26] MEDS: Insulin Reg-HIGH-Coverage SC SCH ×4 (08:11→21:34)
[2017-10-26] MEDS: Oxycodone/Acetaminophen 5/325 mg Tab PO PRN ×2 (08:22→21:33)
--- NOTE | 2017-10-26 08:46 | CP.PCM.PN ---
<Asia Aguila - Last Filed: 10/26/17 11:14> Subjective - Date & Time of Evaluation Date of Evaluation: 10/26/17 Time of Evaluation: 08:45 - Subjective Subjective: PGY-[address] Potter Pt tolerated yesterday EGD and flex sig well. He will start breakfast this AM. No more bloody BM last night Objective - Vital Signs/Intake and Output Vital Signs (last 24 hours): Temp Pulse Resp BP Pulse Ox 97.8 F 72 20 128/58 L 100 10/26/17 06:00 10/26/17 06:00 10/26/17 06:00 10/26/17 06:00 10/26/17 06:00 Intake and Output: 10/26/17 10/26/17 06:59 18:59 Intake Total 120 Balance 120 - Medications Medications: Current Medications Albuterol/Ipratropium (Duoneb 3 Mg/0.5 Mg (3 Ml) Ud) 3 ml IH [id number] PRN PRN Reason: Shortness of Breath Last Admin: 10/23/17 13:35 Dose: 3 ml Arformoterol Tartrate (Brovana) 15 mcg IH [id number] ON LICENSE OF [facility] Last Admin: 10/26/17 07:23 Dose: 15 mcg Aspirin (Ecotrin) 81 mg PO DAILY ON [facility] OF [facility] Last Admin: 10/22/17 09:33 Dose: 81 mg Atorvastatin Calcium (Lipitor) 40 mg PO DIN ON [facility] OF [facility] Last Admin: 10/25/17 18:36 Dose: 40 mg Bacitracin (Bacitracin) 1 ea TOP BID ON [facility] OF [facility] Last Admin: 10/25/17 14:49 Dose: 1 ea Budesonide (Pulmicort Respules) 0.5 mg IH [id number] ON [facility] OF [facility] Last Admin: 10/26/17 07:24 Dose: 0.5 mg Calcium Acetate (Phoslo) 1,334 mg PO WM ON [facility] Last Admin: 10/26/17 08:17 Dose: 1,334 mg Diphenhydramine HCl (Benadryl) 25 mg PO HS PRN PRN Reason: Insomnia Last Admin: 10/24/17 22:03 Dose: 25 mg Ergocalciferol (Drisdol 50,000 Intl Units Cap) 1 cap PO WED ON [facility] Last Admin: 10/25/17 15:12 Dose: Not Given Fenofibrate (Tricor) 145 mg PO DAILY [facility] Last Admin: 10/25/17 15:34 Dose: Not Given Hydralazine HCl (Apresoline) 25 mg PO BID ON [facility] Last Admin: 10/21/17 17:04 Dose: Not Given Micafungin Sodium 100 mg/ (Sodium Chloride) 100 mls @ 100 mls/hr IV DAILY CARLOS PRN Reason: Protocol Stop: 10/26/17 10:01 Last Admin: 10/25/17 14:51 Dose: 100 mls/hr Argatroban 250 mg/ Dextrose 252.5 mls @ 10.5 mls/hr IV .Q24H CARLOS; 2 MCG/KG/MIN PRN Reason: Protocol Last Admin: 10/23/17 17:08 Dose: 10.5 mls/hr Insulin Human NPH (Humulin N) 20 units SC QPM ON [facility] Last Admin: 10/25/17 18:35 Dose: Not Given Insulin Human Regular (Humulin R High) 0 units SC ACHS ON [facility] PRN Reason: Protocol Last Admin: 10/26/17 08:11 Dose: Not Given Latanoprost (Xalatan Opht) 0 ml OU HS [facility] Last Admin: 10/25/17 21:12 Dose: 2.5 ml Levothyroxine Sodium (Synthroid) 25 mcg PO 0600 ON [facility] Last Admin: 10/26/17 05:33 Dose: 25 mcg Loratadine (Claritin) 10 mg PO HS [facility] Last Admin: 10/25/17 21:12 Dose: 10 mg Metoprolol Tartrate (Lopressor) 25 mg PO BID [facility] Last Admin: 10/25/17 18:37 Dose: 25 mg Montelukast Sodium (Singulair) 10 mg PO HS [facility] Last Admin: 10/25/17 21:12 Dose: 10 mg Multivitamins (Thera Tab) 1 tab PO DAILY ON [facility] Last Admin: 10/25/17 15:33 Dose: Not Given Salmeterol Xinafoate /Fluticaso [Advair Hfa 230-21] 1 puff IH BID ON [facility] OF [facility] Last Admin: 10/24/17 18:02 Dose: Not Given Yllql-6-Mvdd Ethyl Esters (Lovaza) 2 gm PO BID ON [facility] Last Admin: 10/25/17 18:24 Dose: 2 gm Ondansetron HCl (Zofran Inj) 4 mg IVP Q6H PRN PRN Reason: Nausea/Vomiting Last Admin: 10/23/17 06:48 Dose: 4 mg Oxycodone/Acetaminophen (Percocet 5/325 Mg Tab) 1 tab PO BID PRN PRN Reason: pain Stop: 10/27/17 19:10 Last Admin: 10/25/17 18:24 Dose: 1 tab Oxycodone/Acetaminophen (Percocet 5/325 Mg Tab) 2 tab PO Q4H PRN PRN Reason: foot pain Stop: 10/27/17 19:13 Last Admin: 10/26/17 08:22 Dose: 2 tab Pregabalin (Lyrica) 50 mg PO [facility] Last Admin: 10/25/17 21:11 Dose: 50 mg Sevelamer HCl (Renagel) 1,600 mg PO [facility] Last Admin: 10/26/17 08:18 Dose: 1,600 mg Sodium Chloride ([place]ray Nasal [place]) 0 ml NS Q2H PRN PRN Reason: Nasal congestion Tamsulosin HCl (Flomax) 0.4 mg PO [facility] Last Admin: 10/25/17 21:12 Dose: 0.4 mg Ticagrelor (Brilinta) 90 mg PO BID ON [facility] OF [facility] Last Admin: 10/19/17 17:13 Dose: 90 mg - Labs Labs: 10/26/17 05:20 10/26/17 05:20 PT 17.9 SECONDS (9.4-12.5) H 10/20/17 07:00 INR 1.54 10/20/17 07:00 APTT 80.4 Seconds (25.1-36.5) H 10/23/17 19:54 - Constitutional Appears: No Acute Distress - Head Exam Head Exam: ATRAUMATIC, NORMAL INSPECTION, NORMOCEPHALIC - Eye Exam Eye Exam: EOMI, Normal appearance, PERRL. absent: Scleral icterus Pupil Exam: NORMAL ACCOMODATION - ENT Exam ENT Exam: Mucous Membranes Moist - Neck Exam Additional comments: supple - Respiratory Exam Respiratory Exam: Clear to Ausculation Bilateral. absent: Rales, Rhonchi, Wheezes - Cardiovascular Exam Cardiovascular Exam: REGULAR RHYTHM, +S1, +S2 - GI/Abdominal Exam GI & Abdominal Exam: Soft, Normal Bowel Sounds. absent: Tenderness - Extremities Exam Extremities Exam: absent: Calf Tenderness, Pedal Edema, Tenderness Additional comments: R leg dressing d/c/i - Back Exam Back Exam: absent: CVA tenderness (L), CVA tenderness (R) - Neurological Exam Neurological Exam: Alert, Awake, Oriented x3 - Psychiatric Exam Psychiatric exam: Normal Affect, Normal Mood - Skin Skin Exam: Dry, Warm Assessment and Plan - Assessment and Plan (Free Text) Plan: Mr Berger, 52 M recently s/p transmetatarsal amputation of the right foot () due to wet gangrene to the right foot and bone exposure. He is on Dual antiplatelet for recent cardiac stent in May. His RLE stump is not healing, possibly because he is a vasculopath and he weight bear despite warning. Due to the non-healing wound due to poor perfusion, he was scheduled for R BKA. The surgery was delayed twice because he developed fungemia on zyvox, merem, micafungin. 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 He was transferred to ICU for agatroban but developed GI bleed. Since agatroban is held, no longer need ICU, and he transferred to telemetry. Now off ASA, brilinta, heparin SC, agatroban. 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 Stop protonix, merem, zyvox to r/o other medication etiology Fungemia (10/16), Had ruled out thrombi @ pacemaker lead. Had ruled out Opthalmitis. Anemia at 7.3 (baseline 8-9), Anemia of chronic disease and due to ESRD, asymptomatic, s/p 3u PRBC. Goal to reach Hb 10 for surgery. CAD s/p 2 YORDY in LAD (06/13/17) on dual-antiplatelet, CHF, pacemaker (metronic) HTN/PVD RENATA, cannot tolerate CPAP; COPD; severe pulmonary HTN DM_2__, peripheral neuropathy Hx CVA with L residual weakness ESRD MWF due to HTN/DM, with Anemia, Hyperphosphatemia, Secondary Hyperparathyroidism Hypothyroidism Moxifloxacin and PCN allergy P: For non-healing wound R stump, surgery next monday vs monday after dialysis. Percocet Q6 PRN; Lyrica HS Cardiology cleared. Pending ID and heme clearance for surgery High uriel-operative cardiac risk. GI bleed seem resolved. Hb stable at 9. EGD showed supermucosal tear and colonoscopy showed stool, no active bleed. started breakfast today. For HIT, Argatroban gtt held. Pending heparin ab and Serotonin release assy result. For fungemia, mycafungin, day __9___. Stopped Merem & Linezolid (x 6 day) for possible cause of low platelet; patient may need up to 4 weeks of antifungal therapy Repeat blood culture (10/19) negative. Echo showed EF 55. RVSP 49. Aortic cusp calcified cannot r/o veg. No sig changes to echo 1 month ago. LASHAWN no vegetation in pacemaker lead. pthalmologist has already ruled out endopthalmitis. For anemia, sp 5u RBC. goal Hb 10 for surgery. For thrombocytopenia, s/p 2 plt For CAD, Continue metoprolol, lipitor, fenofibrate, lovaza. ASA/Brilinta on hold. For HTN, hydralazine 25 bid, For DM2, hold glipizide, reduce humulin N to 20u per last hospital insulin requirement, lispro-low sliding scale For chronic ESRD, HD MWF. Continue Phoslo, Vit D2, multivitamin, sevelamer For COPD/RENATA, HOB 45, Duoneb PRN, brovana, budesonide, montelikast. Cannot tolerate CPAP For Glucoma, bimatoprost For insomnia, benadryl HS prn For hypothyroidism, synthroid 25 Flomax for Bph Prophylaxis: high risk of GI stress ulcer due to bleed/fungemia. consider Use low dose pepcid, pending GI rec. 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 Off protonix due to low plt. Off anticoagulant due to GI bleed Discharge planning: BKA next Monday s/p dialysis or Monday. May need midline for total of 4 weeks antifungal. Rehab. Need to decide when to be back on antiplatelet for recent YORDY after BKA Consult: Forest Willis, Renan, Dre, Rich, Jensen Escalera, Cyndee Ahn Access: L AV fistula. Peripheral IV s/r/d/w Dr. Potter <Gallo Potter S - Last Filed: 10/26/17 20:03> Objective - Vital Signs/Intake and Output Vital Signs (last 24 hours): Temp Pulse Resp BP Pulse Ox 98.4 F 66 18 121/51 L 98 10/26/17 19:13 10/26/17 19:13 10/26/17 19:13 10/26/17 19:13 10/26/17 19:13 Intake and Output: 10/26/17 10/27/17 18:59 06:59 Intake Total 300 Output Total 0 Balance 300 - Medications Medications: Current Medications Albuterol/Ipratropium (Duoneb 3 Mg/0.5 Mg (3 Ml) Ud) 3 ml IH [id number] PRN PRN Reason: Shortness of Breath Last Admin: 10/23/17 13:35 Dose: 3 ml Arformoterol Tartrate (Brovana) 15 mcg IH [id number] ON [facility] Last Admin: 10/26/17 07:23 Dose: 15 mcg Aspirin (Ecotrin) 81 mg PO DAILY CARLOS Atorvastatin Calcium (Lipitor) 40 mg PO DIN ON [facility] Last Admin: 10/26/17 17:30 Dose: 40 mg Bacitracin (Bacitracin) 1 ea TOP BID ON [facility] Last Admin: 10/26/17 17:30 Dose: 1 ea Budesonide (Pulmicort Respules) 0.5 mg IH [id number] ON [facility] Last Admin: 10/26/17 07:24 Dose: 0.5 mg Calcium Acetate (Phoslo) 1,334 mg PO WM ON [facility] Last Admin: 10/26/17 17:30 Dose: 667 mg Diphenhydramine HCl (Benadryl) 25 mg PO HS PRN PRN Reason: Insomnia Last Admin: 10/24/17 22:03 Dose: 25 mg Ergocalciferol (Drisdol 50,000 Intl Units Cap) 1 cap PO WED ON [facility] Last Admin: 10/25/17 15:12 Dose: Not Given Famotidine (Pepcid) 10 mg PO 2200 CARLOS Fenofibrate (Tricor) 145 mg PO DAILY ON [facility] Last Admin: 10/26/17 10:17 Dose: 145 mg Hydralazine HCl (Apresoline) 25 mg PO BID ON [facility] Last Admin: 10/21/17 17:04 Dose: Not Given Argatroban 250 mg/ Dextrose 252.5 mls @ 10.5 mls/hr IV .Q24H CARLOS; 2 MCG/KG/MIN PRN Reason: Protocol Last Admin: 10/23/17 17:08 Dose: 10.5 mls/hr Micafungin Sodium 100 mg/ (Sodium Chloride) 100 mls @ 100 mls/hr IV DAILY ON [facility] PRN Reason: Protocol Stop: 11/09/17 12:16 Last Admin: 10/26/17 13:14 Dose: Not Given Insulin Human NPH (Humulin N) 20 units SC QPM ON [facility] Last Admin: 10/26/17 17:23 Dose: Not Given Insulin Human Regular (Humulin R High) 0 units SC ACHS ON [facility] PRN Reason: Protocol Last Admin: 10/26/17 17:31 Dose: 2 units Latanoprost (Xalatan Opht) 0 ml OU HS ON [facility] Last Admin: 10/25/17 21:12 Dose: 2.5 ml Levothyroxine Sodium (Synthroid) 25 mcg PO 0600 ON [facility] Last Admin: 10/26/17 05:33 Dose: 25 mcg Loratadine (Claritin) 10 mg PO HS [facility] Last Admin: 10/25/17 21:12 Dose: 10 mg Metoprolol Tartrate (Lopressor) 25 mg PO BID ON [facility] Last Admin: 10/26/17 17:29 Dose: 25 mg Montelukast Sodium (Singulair) 10 mg PO HS [facility] Last Admin: 10/25/17 21:12 Dose: 10 mg Multivitamins (Thera Tab) 1 tab PO DAILY ON [facility] Last Admin: 10/26/17 10:18 Dose: 1 tab Salmeterol Xinafoate /Fluticaso [Advair Hfa 230-21] 1 puff IH BID ON [facility] Last Admin: 10/26/17 18:04 Dose: Not Given Betbw-9-Egpn Ethyl Esters (Lovaza) 2 gm PO BID ON [facility] Last Admin: 10/26/17 17:29 Dose: 1 gm Ondansetron HCl (Zofran Inj) 4 mg IVP Q6H PRN PRN Reason: Nausea/Vomiting Last Admin: 10/23/17 06:48 Dose: 4 mg Oxycodone/Acetaminophen (Percocet 5/325 Mg Tab) 1 tab PO BID PRN PRN Reason: pain Stop: 10/27/17 19:10 Last Admin: 10/25/17 18:24 Dose: 1 tab Oxycodone/Acetaminophen (Percocet 5/325 Mg Tab) 2 tab PO Q4H PRN PRN Reason: foot pain Stop: 10/27/17 19:13 Last Admin: 10/26/17 08:22 Dose: 2 tab Pregabalin (Lyrica) 50 mg PO HS ON [facility] Last Admin: 10/25/17 21:11 Dose: 50 mg Sevelamer HCl (Renagel) 1,600 mg PO WM ON [facility] Last Admin: 10/26/17 17:29 Dose: 800 mg Sodium Chloride ([place]ray Nasal [place]) 0 ml NS Q2H PRN PRN Reason: Nasal congestion Tamsulosin HCl (Flomax) 0.4 mg PO [facility] Last Admin: 10/25/17 21:12 Dose: 0.4 mg Ticagrelor (Brilinta) 90 mg PO BID ON [facility] Last Admin: 10/19/17 17:13 Dose: 90 mg - Labs Labs: 10/26/17 05:20 10/26/17 05:20 PT 17.9 SECONDS (9.4-12.5) H 10/20/17 07:00 INR 1.54 10/20/17 07:00 APTT 80.4 Seconds (25.1-36.5) H 10/23/17 19:54 Assessment and Plan - Assessment and Plan (Free Text) Plan: Pt seen and examined. I have reviewed the note of the medical artist and agree with it. I have discussed the assessment and plan with the resident. I have reviewed the patient's labs and medications. Pt with fungemia. She is on IV Mycafungin. She is not having any bleeding. Hb stable. Will need surgery. Spoke to Dr Urrutia. I arranged for HD on Monday morning and pt can get surgery on Monday afternoon or Monday.
--- NOTE | 2017-10-26 08:57 | CP.PCM.PN ---
Subjective - Date & Time of Evaluation Date of Evaluation: 10/26/17 Time of Evaluation: 06:25 - Subjective Subjective: Awake, no distress, denies chest pain, denies shortness of breath Reason for consultation and follow up: Cardiac pre-op evaluation and risk stratification for right foot below knee amputation surgery. history of coronary artery disease with multiple stents, PPM , ESRD on hemodialysis, heparin induced thrombocytopenia Seen and examined by me and Dr. Erickson Objective - Vital Signs/Intake and Output Vital Signs (last 24 hours): Temp Pulse Resp BP Pulse Ox 97.8 F 72 20 128/58 L 100 10/26/17 06:00 10/26/17 06:00 10/26/17 06:00 10/26/17 06:00 10/26/17 06:00 Intake and Output: 10/26/17 10/26/17 06:59 18:59 Intake Total 120 Balance 120 - Medications Medications: Current Medications Albuterol/Ipratropium (Duoneb 3 Mg/0.5 Mg (3 Ml) Ud) 3 ml IH [id number] PRN PRN Reason: Shortness of Breath Last Admin: 10/23/17 13:35 Dose: 3 ml Arformoterol Tartrate (Brovana) 15 mcg IH [id number] [facility] Last Admin: 10/26/17 07:23 Dose: 15 mcg Aspirin (Ecotrin) 81 mg PO DAILY [facility] Last Admin: 10/22/17 09:33 Dose: 81 mg Atorvastatin Calcium (Lipitor) 40 mg PO DIN [facility] Last Admin: 10/25/17 18:36 Dose: 40 mg Bacitracin (Bacitracin) 1 ea TOP BID [facility] Last Admin: 10/25/17 14:49 Dose: 1 ea Budesonide (Pulmicort Respules) 0.5 mg IH [id number] [facility] Last Admin: 10/26/17 07:24 Dose: 0.5 mg Calcium Acetate (Phoslo) 1,334 mg PO WM [facility] Last Admin: 10/26/17 08:17 Dose: 1,334 mg Diphenhydramine HCl (Benadryl) 25 mg PO HS PRN PRN Reason: Insomnia Last Admin: 10/24/17 22:03 Dose: 25 mg Ergocalciferol (Drisdol 50,000 Intl Units Cap) 1 cap PO WED [facility] Last Admin: 10/25/17 15:12 Dose: Not Given Fenofibrate (Tricor) 145 mg PO DAILY [facility] Last Admin: 10/25/17 15:34 Dose: Not Given Hydralazine HCl (Apresoline) 25 mg PO BID [facility] Last Admin: 10/21/17 17:04 Dose: Not Given Micafungin Sodium 100 mg/ (Sodium Chloride) 100 mls @ 100 mls/hr IV DAILY [facility] PRN Reason: Protocol Stop: 10/26/17 10:01 Last Admin: 10/25/17 14:51 Dose: 100 mls/hr Argatroban 250 mg/ Dextrose 252.5 mls @ 10.5 mls/hr IV .Q24H CARLOS; 2 MCG/KG/MIN PRN Reason: Protocol Last Admin: 10/23/17 17:08 Dose: 10.5 mls/hr Insulin Human NPH (Humulin N) 20 units SC QPM [facility] Last Admin: 10/25/17 18:35 Dose: Not Given Insulin Human Regular (Humulin R High) 0 units SC ACHS [facility] PRN Reason: Protocol Last Admin: 10/26/17 08:11 Dose: Not Given Latanoprost (Xalatan Opht) 0 ml OU HS [facility] Last Admin: 10/25/17 21:12 Dose: 2.5 ml Levothyroxine Sodium (Synthroid) 25 mcg PO 0600 [facility] Last Admin: 10/26/17 05:33 Dose: 25 mcg Loratadine (Claritin) 10 mg PO HS [facility] Last Admin: 10/25/17 21:12 Dose: 10 mg Metoprolol Tartrate (Lopressor) 25 mg PO BID [facility] Last Admin: 10/25/17 18:37 Dose: 25 mg Montelukast Sodium (Singulair) 10 mg PO HS [facility] Last Admin: 10/25/17 21:12 Dose: 10 mg Multivitamins (Thera Tab) 1 tab PO DAILY [facility] Last Admin: 10/25/17 15:33 Dose: Not Given Salmeterol Xinafoate /Fluticaso [Advair Hfa 230-21] 1 puff IH BID [facility] Last Admin: 10/24/17 18:02 Dose: Not Given Qgnlj-3-Bfrp Ethyl Esters (Lovaza) 2 gm PO BID [facility] Last Admin: 10/25/17 18:24 Dose: 2 gm Ondansetron HCl (Zofran Inj) 4 mg IVP Q6H PRN PRN Reason: Nausea/Vomiting Last Admin: 10/23/17 06:48 Dose: 4 mg Oxycodone/Acetaminophen (Percocet 5/325 Mg Tab) 1 tab PO BID PRN PRN Reason: pain Stop: 10/27/17 19:10 Last Admin: 10/25/17 18:24 Dose: 1 tab Oxycodone/Acetaminophen (Percocet 5/325 Mg Tab) 2 tab PO Q4H PRN PRN Reason: foot pain Stop: 10/27/17 19:13 Last Admin: 10/26/17 08:22 Dose: 2 tab Pregabalin (Lyrica) 50 mg PO HS [facility] Last Admin: 10/25/17 21:11 Dose: 50 mg Sevelamer HCl (Renagel) 1,600 mg PO [facility] Last Admin: 10/26/17 08:18 Dose: 1,600 mg Sodium Chloride ([place] Nasal [place]) 0 ml NS Q2H PRN PRN Reason: Nasal congestion Tamsulosin HCl (Flomax) 0.4 mg PO [facility] Last Admin: 10/25/17 21:12 Dose: 0.4 mg Ticagrelor (Brilinta) 90 mg PO BID [facility] Last Admin: 10/19/17 17:13 Dose: 90 mg - Labs Labs: 10/26/17 05:20 10/26/17 05:20 PT 17.9 SECONDS (9.4-12.5) H 10/20/17 07:00 INR 1.54 10/20/17 07:00 APTT 80.4 Seconds (25.1-36.5) H 10/23/17 19:54 - Constitutional Appears: No Acute Distress - Eye Exam Eye Exam: Normal appearance - ENT Exam ENT Exam: Mucous Membranes Moist - Respiratory Exam Respiratory Exam: Decreased Breath Sounds, NORMAL BREATHING PATTERN - Cardiovascular Exam Cardiovascular Exam: +S1, +S2 Additional comments: PPM - GI/Abdominal Exam GI & Abdominal Exam: Soft, Normal Bowel Sounds - Exam Additional comments: hemodialysis 3 x a week - Extremities Exam Additional comments: right foot wound Left Av shunt/+ bruit - Neurological Exam Neurological Exam: Alert, Awake, Oriented x3 - Psychiatric Exam Psychiatric exam: Normal Affect - Skin Skin Exam: Dry, Warm Assessment and Plan - Assessment and Plan (Free Text) Assessment: A 52 year old make known to service who came in to the ER due to worsening non healing wound of the right foot. Patient was recently got discharged from [facility] which he underwent amputation of right foot transmetatarsal, stablized and transferred to [facility]. History of coronary artery disease with multiple stents, NSTEMI, ESRD on hemodialysis, peripheral arterial disease, insulin dependent diabetes mellitus, diabetic neuropathy, diabetic retinopathy,PPM for sinus junctional rhythm symptomatic.subdural hematoma post fall, resistant to Plavix, on Brilinta and Aspirin but discontinued due to surgery. He had also fungicemia,LASHAWN done to rule out endocarditis and results no evidence of vegetations. ID on consult and on antibiotics, low platelet count and positive for Heparin induced thrombocytopenia and started on Argatroban.Transferred to ICU for monitoring. Hematology on consult and follow up. Stabilized and now transferred to telemetry. Plan: Stable cardiac status For right below knee amputation once thrombocytopenia stabilized LASHAWN no vegetations Heart rate and blood pressure controlled On hemodialysis 3x a week Continue current treatment Continue current medications On IV antibiotics per ID Will follow up Plan and treatment discussed with Dr. Erickson
[2017-10-26] MEDS: Bacitracin 500 Units/gm Oint Foilpak UD TOP SCH ×2 (09:00→17:30)
--- NOTE | 2017-10-26 09:54 | CP.PCM.PN ---
Subjective - Date & Time of Evaluation Date of Evaluation: 10/26/17 Time of Evaluation: 09:49 - Subjective Subjective: Podiatry Progress Note for Dr. Villanueva 52M seen at bedside for right foot TMA stump ulceration. Patient is AAO x 3. States that pain to ulceraton site is absent at this time. Denies any further pedal complaints at this time. States that overall he is feeling much better mentally and physically. Denies any recent N/V/F/CP/SOB Objective - Vital Signs/Intake and Output Vital Signs (last 24 hours): Temp Pulse Resp BP Pulse Ox 97.8 F 72 20 128/58 L 100 10/26/17 06:00 10/26/17 06:00 10/26/17 06:00 10/26/17 06:00 10/26/17 06:00 Intake and Output: 10/26/17 10/26/17 06:59 18:59 Intake Total 120 Balance 120 - Medications Medications: Current Medications Albuterol/Ipratropium (Duoneb 3 Mg/0.5 Mg (3 Ml) Ud) 3 ml IH [id number] PRN PRN Reason: Shortness of Breath Last Admin: 10/23/17 13:35 Dose: 3 ml Arformoterol Tartrate (Brovana) 15 mcg IH [id number] [facility] Last Admin: 10/26/17 07:23 Dose: 15 mcg Aspirin (Ecotrin) 81 mg PO DAILY [facility] Last Admin: 10/22/17 09:33 Dose: 81 mg Atorvastatin Calcium (Lipitor) 40 mg PO DIN [facility] Last Admin: 10/25/17 18:36 Dose: 40 mg Bacitracin (Bacitracin) 1 ea TOP BID [facility] Last Admin: 10/25/17 14:49 Dose: 1 ea Budesonide (Pulmicort Respules) 0.5 mg IH [id number] [facility] Last Admin: 10/26/17 07:24 Dose: 0.5 mg Calcium Acetate (Phoslo) 1,334 mg PO WM [facility] Last Admin: 10/26/17 08:17 Dose: 1,334 mg Diphenhydramine HCl (Benadryl) 25 mg PO HS PRN PRN Reason: Insomnia Last Admin: 10/24/17 22:03 Dose: 25 mg Ergocalciferol (Drisdol 50,000 Intl Units Cap) 1 cap PO WED [facility] Last Admin: 10/25/17 15:12 Dose: Not Given Fenofibrate (Tricor) 145 mg PO DAILY [facility] Last Admin: 10/25/17 15:34 Dose: Not Given Hydralazine HCl (Apresoline) 25 mg PO BID [facility] Last Admin: 10/21/17 17:04 Dose: Not Given Micafungin Sodium 100 mg/ (Sodium Chloride) 100 mls @ 100 mls/hr IV DAILY [facility] PRN Reason: Protocol Stop: 10/26/17 10:01 Last Admin: 10/25/17 14:51 Dose: 100 mls/hr Argatroban 250 mg/ Dextrose 252.5 mls @ 10.5 mls/hr IV .Q24H CARLOS; 2 MCG/KG/MIN PRN Reason: Protocol Last Admin: 10/23/17 17:08 Dose: 10.5 mls/hr Insulin Human NPH (Humulin N) 20 units SC QPM [facility] Last Admin: 10/25/17 18:35 Dose: Not Given Insulin Human Regular (Humulin R High) 0 units SC ACHS [facility] PRN Reason: Protocol Last Admin: 10/26/17 08:11 Dose: Not Given Latanoprost (Xalatan Opht) 0 ml OU HS [facility] Last Admin: 10/25/17 21:12 Dose: 2.5 ml Levothyroxine Sodium (Synthroid) 25 mcg PO 0600 [facility] Last Admin: 10/26/17 05:33 Dose: 25 mcg Loratadine (Claritin) 10 mg PO HS [facility] Last Admin: 10/25/17 21:12 Dose: 10 mg Metoprolol Tartrate (Lopressor) 25 mg PO BID [facility] Last Admin: 10/25/17 18:37 Dose: 25 mg Montelukast Sodium (Singulair) 10 mg PO HS [facility] Last Admin: 10/25/17 21:12 Dose: 10 mg Multivitamins (Thera Tab) 1 tab PO DAILY [facility] Last Admin: 10/25/17 15:33 Dose: Not Given Salmeterol Xinafoate /Fluticaso [Advair Hfa 230-21] 1 puff IH BID [facility] Last Admin: 10/24/17 18:02 Dose: Not Given Ytftw-2-Alva Ethyl Esters (Lovaza) 2 gm PO BID [facility] Last Admin: 10/25/17 18:24 Dose: 2 gm Ondansetron HCl (Zofran Inj) 4 mg IVP Q6H PRN PRN Reason: Nausea/Vomiting Last Admin: 10/23/17 06:48 Dose: 4 mg Oxycodone/Acetaminophen (Percocet 5/325 Mg Tab) 1 tab PO BID PRN PRN Reason: pain Stop: 10/27/17 19:10 Last Admin: 10/25/17 18:24 Dose: 1 tab Oxycodone/Acetaminophen (Percocet 5/325 Mg Tab) 2 tab PO Q4H PRN PRN Reason: foot pain Stop: 10/27/17 19:13 Last Admin: 10/26/17 08:22 Dose: 2 tab Pregabalin (Lyrica) 50 mg PO [facility] Last Admin: 10/25/17 21:11 Dose: 50 mg Sevelamer HCl (Renagel) 1,600 mg PO [facility] Last Admin: 10/26/17 08:18 Dose: 1,600 mg Sodium Chloride ([place] Nasal [place]) 0 ml NS Q2H PRN PRN Reason: Nasal congestion Tamsulosin HCl (Flomax) 0.4 mg PO [facility] Last Admin: 10/25/17 21:12 Dose: 0.4 mg Ticagrelor (Brilinta) 90 mg PO BID [facility] Last Admin: 10/19/17 17:13 Dose: 90 mg - Labs Labs: 10/26/17 05:20 10/26/17 05:20 PT 17.9 SECONDS (9.4-12.5) H 10/20/17 07:00 INR 1.54 10/20/17 07:00 APTT 80.4 Seconds (25.1-36.5) H 10/23/17 19:54 - Constitutional Appears: Well, Non-toxic, No Acute Distress - Extremities Exam Additional comments: RLE focused exam: Vasc: DP/PT pulses faintly palpable b/l. CFT to dorsal foot < 3 seconds. Minimal edema noted to TMA site Derm: distal TMA site flap is coapted and reapproximated with sutures and fitz. No unraveling of sutures or backing out of fitz noted. No dehiscence appreciated to the flap. Entire flap is necrosed at this time. There is an open large ulceration measuring approximately 10 cm x 7 cm x 2 cm on the plantar medial aspect of right foot, wound base mixture of fibrotic and necrotic tissue with serous drainage and no malodor. No tracking, tunneling or undermining. No probe to bone. Ulceration site does not appear to be worsening at this time Neuro: Epicritic and protective sensation grossly absent Ortho: POP to plantar ulceration site. Ankle AROM and passive ROM WNL - Neurological Exam Neurological Exam: Alert, Awake, Oriented x3 - Psychiatric Exam Psychiatric exam: Normal Affect, Normal Mood Assessment and Plan - Assessment and Plan (Free Text) Assessment: 52M seen at bedside for right foot TMA stump ulceration Plan: Patient seen and evaluated Plan discussed with Dr. Villanueva Afebrile, absent leukocytosis Wound dressed with betadine, Adaptic, ABD, DSD No plan for surgical intervention from podiatry standpoint F/u surgery team plan for R BKA Podiatry will continue to follow while patient in house
[2017-10-26] MEDS: Omega-3-Acid Ethyl Esters 1 GM Cap PO SCH ×2 (10:18→17:29)
[2017-10-26] MEDS: Multivitamin Therapeutic Tab PO SCH (10:18)
[2017-10-26] MEDS: SALMETEROL XINAFOATE IH SCH ×2 (11:59→18:04)
[2017-10-26] MEDS: FLUTICASO IH SCH ×2 (11:59→18:04)
--- NOTE | 2017-10-26 12:04 | CP.PCM.PN ---
Subjective - Date & Time of Evaluation Date of Evaluation: 10/26/17 Time of Evaluation: 09:10 - Subjective Subjective: Comfortable in bed, no increase in leg pain, no fevers. No diarrhea. Objective - Vital Signs/Intake and Output Vital Signs (last 24 hours): Temp Pulse Resp BP Pulse Ox 97.8 F 72 20 128/58 L 100 10/26/17 06:00 10/26/17 06:00 10/26/17 06:00 10/26/17 06:00 10/26/17 06:00 Intake and Output: 10/26/17 10/26/17 06:59 18:59 Intake Total 120 Balance 120 - Medications Medications: Current Medications Albuterol/Ipratropium (Duoneb 3 Mg/0.5 Mg (3 Ml) Ud) 3 ml IH [id number] PRN PRN Reason: Shortness of Breath Last Admin: 10/23/17 13:35 Dose: 3 ml Arformoterol Tartrate (Brovana) 15 mcg IH [id number] [facility] Last Admin: 10/25/17 19:28 Dose: 15 mcg Aspirin (Ecotrin) 81 mg PO DAILY [facility] Last Admin: 10/22/17 09:33 Dose: 81 mg Atorvastatin Calcium (Lipitor) 40 mg PO DIN [facility] Last Admin: 10/25/17 18:36 Dose: 40 mg Bacitracin (Bacitracin) 1 ea TOP BID [facility] Last Admin: 10/25/17 14:49 Dose: 1 ea Budesonide (Pulmicort Respules) 0.5 mg IH [id number] [facility] Last Admin: 10/25/17 19:29 Dose: 0.5 mg Calcium Acetate (Phoslo) 1,334 mg PO WM [facility] Last Admin: 10/25/17 18:22 Dose: 1,334 mg Diphenhydramine HCl (Benadryl) 25 mg PO HS PRN PRN Reason: Insomnia Last Admin: 10/24/17 22:03 Dose: 25 mg Ergocalciferol (Drisdol 50,000 Intl Units Cap) 1 cap PO WED [facility] Last Admin: 10/25/17 15:12 Dose: Not Given Fenofibrate (Tricor) 145 mg PO DAILY [facility] Last Admin: 10/25/17 15:34 Dose: Not Given Hydralazine HCl (Apresoline) 25 mg PO BID [facility] Last Admin: 10/21/17 17:04 Dose: Not Given Micafungin Sodium 100 mg/ (Sodium Chloride) 100 mls @ 100 mls/hr IV DAILY [facility] PRN Reason: Protocol Stop: 10/26/17 10:01 Last Admin: 10/25/17 14:51 Dose: 100 mls/hr Argatroban 250 mg/ Dextrose 252.5 mls @ 10.5 mls/hr IV .Q24H [facility]; 2 MCG/KG/MIN PRN Reason: Protocol Last Admin: 10/23/17 17:08 Dose: 10.5 mls/hr Insulin Human NPH (Humulin N) 20 units SC QPM [facility] Last Admin: 10/25/17 18:35 Dose: Not Given Insulin Human Regular (Humulin R High) 0 units SC ACHS [facility] PRN Reason: Protocol Last Admin: 10/25/17 22:13 Dose: Not Given Latanoprost (Xalatan Opht) 0 ml OU HS [facility] Last Admin: 10/25/17 21:12 Dose: 2.5 ml Levothyroxine Sodium (Synthroid) 25 mcg PO 0600 [facility] Last Admin: 10/26/17 05:33 Dose: 25 mcg Loratadine (Claritin) 10 mg PO HS [facility] Last Admin: 10/25/17 21:12 Dose: 10 mg Metoprolol Tartrate (Lopressor) 25 mg PO BID [facility] Last Admin: 10/25/17 18:37 Dose: 25 mg Montelukast Sodium (Singulair) 10 mg PO HS [facility] Last Admin: 10/25/17 21:12 Dose: 10 mg Multivitamins (Thera Tab) 1 tab PO DAILY [facility] Last Admin: 10/25/17 15:33 Dose: Not Given Salmeterol Xinafoate /Fluticaso [Advair Hfa 230-21] 1 puff IH BID [facility] Last Admin: 10/24/17 18:02 Dose: Not Given Wvyte-8-Mhdv Ethyl Esters (Lovaza) 2 gm PO BID [facility] Last Admin: 10/25/17 18:24 Dose: 2 gm Ondansetron HCl (Zofran Inj) 4 mg IVP Q6H PRN PRN Reason: Nausea/Vomiting Last Admin: 10/23/17 06:48 Dose: 4 mg Oxycodone/Acetaminophen (Percocet 5/325 Mg Tab) 1 tab PO BID PRN PRN Reason: pain Stop: 10/27/17 19:10 Last Admin: 10/25/17 18:24 Dose: 1 tab Oxycodone/Acetaminophen (Percocet 5/325 Mg Tab) 2 tab PO Q4H PRN PRN Reason: foot pain Stop: 10/27/17 19:13 Pregabalin (Lyrica) 50 mg PO HS [facility] Last Admin: 10/25/17 21:11 Dose: 50 mg Sevelamer HCl (Renagel) 1,600 mg PO WM [facility] Last Admin: 10/25/17 18:38 Dose: 1,600 mg Sodium Chloride ([place] Nasal [place]) 0 ml NS Q2H PRN PRN Reason: Nasal congestion Tamsulosin HCl (Flomax) 0.4 mg PO [facility] Last Admin: 10/25/17 21:12 Dose: 0.4 mg Ticagrelor (Brilinta) 90 mg PO BID [facility] Last Admin: 10/19/17 17:13 Dose: 90 mg - Labs Labs: 10/26/17 05:20 10/26/17 05:20 PT 17.9 SECONDS (9.4-12.5) H 10/20/17 07:00 INR 1.54 10/20/17 07:00 APTT 80.4 Seconds (25.1-36.5) H 10/23/17 19:54 - Constitutional Appears: Chronically Ill - Head Exam Head Exam: NORMAL INSPECTION - ENT Exam ENT Exam: Mucous Membranes Moist - Neck Exam Neck Exam: absent: Meningismus - Respiratory Exam Respiratory Exam: Decreased Breath Sounds - Cardiovascular Exam Cardiovascular Exam: +S1, +S2 - GI/Abdominal Exam GI & Abdominal Exam: Soft. 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 diff. associated diarrhea ESRD on HD DM obesity CAD S/P PCI retinopathy history of pancreatitis Plan continue Mycamine for C. glabrata in the blood day 8; patient will need Ophtho exam - patient may need up to 4 weeks of antifungal therapy patient was on Argatroban drip for possible HIT, then for BKA once platelet count has improved will continue to follow clinically
[2017-10-26] MEDS: Micafungin 100 MG in Sodium Chloride 0.9% 100 ML IV SCH ×2 (12:21→13:14)
[2017-10-26] MEDS: Insulin Human NPH 1 UNITS/0.01 ML SC SCH (17:23)
--- NOTE | 2017-10-26 20:09 | PN ---
Copied To: Jarred Escalera MD Attending MD: Jarred Escalera MD DATE: 10/26/2017 PULMONARY PROGRESS NOTE REFERRING PHYSICIAN: Gallo Potter MD SUBJECTIVE: He is lying in the bed, head at 45 degrees, sleepy, arousable. Night was unremarkable. No headache. No rhinitis. No nausea, no vomiting, no diarrhea. No rectal bleed. No melena. Has a right foot some discomfort. OBJECTIVE: GENERAL: In no acute distress. VITAL SIGNS: Temperature is 98, heart rate is 88, respiratory rate is 20, blood pressure 125/82, pulse ox 100% on nasal cannula. HEENT: Moist mucous membrane. Crowded airway. Mallampati score is 4. NECK: Supple. No JVD. LUNGS: Have a fair airflow with rhonchi. HEART: S1 and S2. ABDOMEN: Soft, nontender. No organomegaly. EXTREMITIES: Right foot has dressing. Left leg looks okay. NEUROLOGICAL: Sleepy, arousable. MEDICATIONS: He is on hydralazine 25 mg twice a day, also on bacitracin ointment to affected area, Benadryl 25 mg at bedtime, Brilinta 90 mg twice a day, Brovana inhaled twice a day, Claritin 10 mg daily, vitamin D 50,000 units weekly, DuoNeb every 6 hours p.r.n., Ecotrin 81 mg daily, Flomax 0.4 mg daily, insulin coverage, Lipitor 40 mg daily, metoprolol tartrate 25 mg twice a day, Lovaza 2 g p.o. twice a day, Lyrica 50 mg at bedtime, micafungin 100 mg daily, Pepcid 10 mg daily, Percocet 5/325 one tablet twice a day p.r.n., Pulmicort inhaled twice a day, Renagel with the meals, Singulair 10 mg daily, Synthroid 25 mcg daily, multivitamins daily, TriCor 145 mg daily, Zofran p.r.n. basis. LABORATORY DATA: Shows hemoglobin 9.3, hematocrit 28.9, WBC 4.8, platelet count is 58. Sodium 138, potassium 3.7, chloride 100, bicarbonate is 31, BUN 24, creatinine 4.6, glucose 143, calcium is 8, AST 50, ALT 25, alkaline phosphatase is 67. Albumin is 2.6. IMPRESSION AND PLAN: Severe peripheral vascular disease with nonhealing ulcer requiring partial amputation of the right foot end up with nonhealing incision site. Awaiting for right below-knee amputation end up with thrombocytopenia and gastrointestinal bleed. Has a chronic obstructive lung disease, obstructive sleep apnea syndrome, diabetes, renal failure, dialysis dependent, sleep apnea precaution. Pulmonary point of view, doing okay. Continue bronchodilator. Keep head at 45 degrees. Still waiting for heparin-induced thrombocytopenia antibodies. Platelet little bit improved. Gastric prophylaxis. Follow up labs in the morning. Physical therapy. Out of bed to chair. Thank you and we will follow with you. Jarred Escalera MD : 10/26/2017 18:29:32
--- NOTE | 2017-10-26 21:33 | PN ---
Copied To: Azalea Morris MD Attending MD: Azalea Morris MD DATE: 10/26/2017 SUBJECTIVE: He is comfortable in bed, in no acute distress. He developed GI bleed for past two days, argatroban was stopped, platelet count dropped. Heparin-induced thrombocytopenia was suspected. Argatroban is on hold now. No GI bleed. No melena. He underwent colonoscopy today, did not show any source of bleeding. Serotonin assay resulted today negative, which rules out heparin-induced thrombocytopenia. REVIEW OF SYSTEMS: As per HPI. Rest of 12 point of review of systems reviewed, negative. PHYSICAL EXAMINATION: GENERAL: Comfortable in bed, in no acute distress. Facial puffiness present. VITAL SIGNS: Stable. Temperature 98.4, heart rate 66 per minute, blood pressure 120/50, respiratory rate 15 per minute, oxygen saturation 98% on room air. HEENT: Pallor positive. NECK: No lymphadenopathy. CHEST: Air entry present and equal bilaterally. No added sounds. CARDIOVASCULAR: S1, S2 normal. No murmur. No gallop. ABDOMEN: Soft, nontender. No hepatosplenomegaly. EXTREMITIES: Right extremity in the dressing. Left, no edema. LABORATORY DATA White count 4.8, hemoglobin 9.3, hematocrit 29.8, platelet count 58. Sodium 138, potassium 3.7, creatinine 4.6. LFTs within normal limits. Serotonin assay is negative. MEDICATIONS: Pulmicort inhalation, PhosLo, Benadryl 25 at bedtime p.r.n., Pepcid 10 mg daily, TriCor 145 mg daily, regular insulin, metoprolol 25 mg p.o. b.i.d., Claritin 10 mg every at bedtime, multivitamin one tablet daily, Zofran 4 mg every 6 hours p.r.n., Flomax and Brilinta 90 mg b.i.d. ASSESSMENT AND PLAN: 1. Thrombocytopenia; heparin-induced thrombocytopenia, ruled out. Serotonin assay is negative, it is very sensitive. I would recommend avoiding heparin subcu for deep vein thrombosis prophylaxis. We will consider Arixtra for deep vein thrombosis prophylaxis. outpatient pharmacy, if they can fill the prescription. It is non-formulary at [facility]. 2. He is scheduled for surgery on Monday. Discussed with the surgical dressing maker. Hematologically, there is no contraindication for surgery as Serotonin assay is negative. He still has thrombocytopenia, he will need platelets transfusion prior to surgery to maintain platelet count above 50,000. He will need platelet transfusion postop also. I would recommend holding Brilinta and aspirin because of thrombocytopenia. 3. Gastrointestinal bleed. No source of bleeding found. No bleeding now. Hemoglobin and hematocrit are stable. We will continue to monitor blood counts. Discussed with Dr. Potter's team. Azalea Morris MD RACHEL
[2017-10-26] MEDS: Latanoprost 2.5 ml Opht Soln OU SCH (21:36)
[2017-10-27] MEDS: Levothyroxine 25 MCG TAB PO SCH (06:15)
[2017-10-27] MEDS: Oxycodone/Acetaminophen 5/325 mg Tab PO PRN ×2 (07:08→18:46)
[2017-10-27 07:09] LABS: BASO # 0.03 K/mm3 (0.0-2.0); BASO % 0.5 % (0.0-3.0); EOS # 0.2 (0.0-0.7); EOS % 2.4 % (1.5-5.0); GRAN # 3.09 (1.4-6.5); GRAN % 46.7 % (50.0-68.0); HEMOGLOBIN 9.5 g/dL (14.0-18.0); LYMPH # 2.5 (1.2-3.4); LYMPH % 37.1 % (22.0-35.0); MEAN CELL VOLUME 90.5 fl (80.0-105.0); MEAN CORPUSCULAR HEMOGLOBIN 29.1 pg (25.0-35.0); MEAN CORPUSCULAR HGB CONC 32.1 g/dl (31.0-37.0); MEAN PLATELET VOLUME 11.2 fl (7.0-11.0); MONO # 0.9 (0.1-0.6); MONO % 13.3 % (1.0-6.0); RBC 3.27 10^6/uL (3.5-6.1); RED CELL DISTRIBUTION WIDTH 16.8 % (11.5-14.5); WHITE BLOOD COUNT 6.6 10^3/ul (4.5-11.0)
--- NOTE | 2017-10-27 07:11 | CP.PCM.PN ---
Subjective - Date & Time of Evaluation Date of Evaluation: 10/27/17 Time of Evaluation: 06:20 - Subjective Subjective: awake, no distress, feels good Reason for consultation and follow up: Cardiac pre-op evaluation and risk stratification for right foot below knee amputation surgery. history of coronary artery disease with multiple stents, PPM , ESRD on hemodialysis, heparin induced thrombocytopenia Seen and examined by me and Dr. Erickson Objective - Vital Signs/Intake and Output Vital Signs (last 24 hours): Temp Pulse Resp BP Pulse Ox 98.4 F 66 18 121/51 L 98 10/26/17 19:13 10/26/17 19:13 10/26/17 19:13 10/26/17 19:13 10/26/17 19:13 - Medications Medications: Current Medications Albuterol/Ipratropium (Duoneb 3 Mg/0.5 Mg (3 Ml) Ud) 3 ml IH [id number] PRN PRN Reason: Shortness of Breath Last Admin: 10/23/17 13:35 Dose: 3 ml Arformoterol Tartrate (Brovana) 15 mcg IH [id number] [facility] Last Admin: 10/26/17 20:29 Dose: 15 mcg Aspirin (Ecotrin) 81 mg PO DAILY [facility] Atorvastatin Calcium (Lipitor) 40 mg PO DIN [facility] Last Admin: 10/26/17 17:30 Dose: 40 mg Bacitracin (Bacitracin) 1 ea TOP BID [facility] Last Admin: 10/26/17 17:30 Dose: 1 ea Budesonide (Pulmicort Respules) 0.5 mg IH [id number] [facility] Last Admin: 10/26/17 20:29 Dose: 0.5 mg Calcium Acetate (Phoslo) 1,334 mg PO WM [facility] Last Admin: 10/26/17 17:30 Dose: 667 mg Diphenhydramine HCl (Benadryl) 25 mg PO HS PRN PRN Reason: Insomnia Last Admin: 10/26/17 21:31 Dose: 25 mg Ergocalciferol (Drisdol 50,000 Intl Units Cap) 1 cap PO WED [facility] Last Admin: 10/25/17 15:12 Dose: Not Given Famotidine (Pepcid) 10 mg PO 2200 [facility] Last Admin: 10/26/17 21:31 Dose: 10 mg Fenofibrate (Tricor) 145 mg PO DAILY [facility] Last Admin: 10/26/17 10:17 Dose: 145 mg Hydralazine HCl (Apresoline) 25 mg PO BID [facility] Last Admin: 10/21/17 17:04 Dose: Not Given Argatroban 250 mg/ Dextrose 252.5 mls @ 10.5 mls/hr IV .Q24H [facility]; 2 MCG/KG/MIN PRN Reason: Protocol Last Admin: 10/23/17 17:08 Dose: 10.5 mls/hr Micafungin Sodium 100 mg/ (Sodium Chloride) 100 mls @ 100 mls/hr IV DAILY [facility] PRN Reason: Protocol Stop: 11/09/17 12:16 Last Admin: 10/26/17 13:14 Dose: Not Given Insulin Human NPH (Humulin N) 20 units SC QPM [facility] Last Admin: 10/26/17 17:23 Dose: Not Given Insulin Human Regular (Humulin R High) 0 units SC ACHS [facility] PRN Reason: Protocol Last Admin: 10/26/17 21:34 Dose: Not Given Latanoprost (Xalatan Opht) 0 ml OU HS [facility] Last Admin: 10/26/17 21:36 Dose: 2.5 ml Levothyroxine Sodium (Synthroid) 25 mcg PO 0600 [facility] Last Admin: 10/27/17 06:15 Dose: 25 mcg Loratadine (Claritin) 10 mg PO HS [facility] Last Admin: 10/26/17 21:33 Dose: 10 mg Metoprolol Tartrate (Lopressor) 25 mg PO BID [facility] Last Admin: 10/26/17 17:29 Dose: 25 mg Montelukast Sodium (Singulair) 10 mg PO HS [facility] Last Admin: 10/26/17 21:33 Dose: 10 mg Multivitamins (Thera Tab) 1 tab PO DAILY [facility] Last Admin: 10/26/17 10:18 Dose: 1 tab Salmeterol Xinafoate /Fluticaso [Advair Hfa 230-21] 1 puff IH BID [facility] Last Admin: 10/26/17 18:04 Dose: Not Given Lyqco-4-Oapk Ethyl Esters (Lovaza) 2 gm PO BID [facility] Last Admin: 10/26/17 17:29 Dose: 1 gm Ondansetron HCl (Zofran Inj) 4 mg IVP Q6H PRN PRN Reason: Nausea/Vomiting Last Admin: 10/23/17 06:48 Dose: 4 mg Oxycodone/Acetaminophen (Percocet 5/325 Mg Tab) 1 tab PO BID PRN PRN Reason: pain Stop: 10/27/17 19:10 Last Admin: 10/27/17 07:08 Dose: 1 tab Oxycodone/Acetaminophen (Percocet 5/325 Mg Tab) 2 tab PO Q4H PRN PRN Reason: foot pain Stop: 10/27/17 19:13 Last Admin: 10/26/17 21:33 Dose: 2 tab Pregabalin (Lyrica) 50 mg PO HS [facility] Last Admin: 10/25/17 21:11 Dose: 50 mg Sevelamer HCl (Renagel) 1,600 mg PO WM [facility] Last Admin: 10/26/17 17:29 Dose: 800 mg Sodium Chloride ([place] Nasal [place]) 0 ml NS Q2H PRN PRN Reason: Nasal congestion Tamsulosin HCl (Flomax) 0.4 mg PO [facility] Last Admin: 10/26/17 21:34 Dose: 0.4 mg Ticagrelor (Brilinta) 90 mg PO BID [facility] Last Admin: 10/19/17 17:13 Dose: 90 mg - Labs Labs: 10/26/17 05:20 10/26/17 05:20 PT 17.9 SECONDS (9.4-12.5) H 10/20/17 07:00 INR 1.54 10/20/17 07:00 APTT 80.4 Seconds (25.1-36.5) H 10/23/17 19:54 - Constitutional Appears: No Acute Distress - Eye Exam Eye Exam: Normal appearance - ENT Exam ENT Exam: Mucous Membranes Moist - Respiratory Exam Respiratory Exam: Clear to Ausculation Bilateral, NORMAL BREATHING PATTERN - Cardiovascular Exam Cardiovascular Exam: +S1, +S2 Additional comments: PPM - GI/Abdominal Exam GI & Abdominal Exam: Soft, Normal Bowel Sounds - Exam Additional comments: hemodialysis 3x a week - Extremities Exam Additional comments: right foot dressing left AV shunt positive bruit - Neurological Exam Neurological Exam: Alert, Awake, Oriented x3 - Psychiatric Exam Psychiatric exam: Normal Affect - Skin Skin Exam: Dry, Warm Assessment and Plan - Assessment and Plan (Free Text) Assessment: A 52 year old make known to service who came in to the ER due to worsening non healing wound of the right foot. Patient was recently got discharged from [facility] [place] which he underwent amputation of right foot transmetatarsal, stablized and transferred to [facility]. History of coronary artery disease with multiple stents, NSTEMI, ESRD on hemodialysis, peripheral arterial disease, insulin dependent diabetes mellitus, diabetic neuropathy, diabetic retinopathy,PPM for sinus junctional rhythm symptomatic.subdural hematoma post fall, resistant to Plavix, on Brilinta and Aspirin but discontinued due to surgery. He had also fungicemia,LASHAWN done to rule out endocarditis and results no evidence of vegetations. ID on consult and on antibiotics, low platelet count and positive for Heparin induced thrombocytopenia and started on Argatroban.Transferred to ICU for monitoring. Hematology on consult and follow up. Stabilized and now transferred to telemetry then to Med/Surg unit. Plan: Controlled blood pressure and heart rate Stable cardiac status For right below knee amputation per surgery possible Monday per patient On hemodialysis 3x a week Continue current treatment Continue current medications On IV antibiotics per ID On contact isolation Will follow up Plan and treatment discussed with Dr. Erickson
[2017-10-27] MEDS: Arformoterol 15 mcg/2 ml Inh Sol IH SCH ×2 (07:13→21:04)
[2017-10-27] MEDS: Budesonide 0.5 mg/2 ml Inhal Susp UD IH SCH ×2 (07:13→21:04)
[2017-10-27 07:57] LABS: ALB/GLOB RATIO 0.7 (1.1-1.8); ALBUMIN 2.9 g/dL (3.0-4.8); CALCIUM 8.3 mg/dL (8.4-10.5)
[2017-10-27] MEDS: Insulin Reg-HIGH-Coverage SC SCH ×4 (08:07→21:50)
--- NOTE | 2017-10-27 08:08 | CP.PCM.PN ---
Subjective - Date & Time of Evaluation Date of Evaluation: 10/27/17 Time of Evaluation: 07:30 - Subjective Subjective: General Surgery Progress Note for Dr. Urrutia Pt seen and examined at bedside this AM. No acute events overnight. He denies any chest pain, SOB, abd. pain, N/V, fever or chills. Reports no bloody BMs for the last 2 days. He is tolerating his diet. Objective - Vital Signs/Intake and Output Vital Signs (last 24 hours): Temp Pulse Resp BP Pulse Ox 97.5 F L 82 18 140/57 L 100 10/27/17 06:00 10/27/17 06:00 10/27/17 06:00 10/27/17 07:31 10/27/17 06:00 - Medications Medications: Current Medications Albuterol/Ipratropium (Duoneb 3 Mg/0.5 Mg (3 Ml) Ud) 3 ml IH [id number] PRN PRN Reason: Shortness of Breath Last Admin: 10/23/17 13:35 Dose: 3 ml Arformoterol Tartrate (Brovana) 15 mcg IH [id number] [facility] Last Admin: 10/27/17 07:13 Dose: 15 mcg Aspirin (Ecotrin) 81 mg PO DAILY [facility] Atorvastatin Calcium (Lipitor) 40 mg PO DIN [facility] Last Admin: 10/26/17 17:30 Dose: 40 mg Bacitracin (Bacitracin) 1 ea TOP BID [facility] Last Admin: 10/26/17 17:30 Dose: 1 ea Budesonide (Pulmicort Respules) 0.5 mg IH [id number] [facility] Last Admin: 10/27/17 07:13 Dose: 0.5 mg Calcium Acetate (Phoslo) 1,334 mg PO WM [facility] Last Admin: 10/26/17 17:30 Dose: 667 mg Diphenhydramine HCl (Benadryl) 25 mg PO HS PRN PRN Reason: Insomnia Last Admin: 10/26/17 21:31 Dose: 25 mg Ergocalciferol (Drisdol 50,000 Intl Units Cap) 1 cap PO WED [facility] Last Admin: 10/25/17 15:12 Dose: Not Given Famotidine (Pepcid) 10 mg PO 2200 [facility] Last Admin: 10/26/17 21:31 Dose: 10 mg Fenofibrate (Tricor) 145 mg PO DAILY [facility] Last Admin: 10/26/17 10:17 Dose: 145 mg Hydralazine HCl (Apresoline) 25 mg PO BID [facility] Last Admin: 10/21/17 17:04 Dose: Not Given Argatroban 250 mg/ Dextrose 252.5 mls @ 10.5 mls/hr IV .Q24H CARLOS; 2 MCG/KG/MIN PRN Reason: Protocol Last Admin: 10/23/17 17:08 Dose: 10.5 mls/hr Micafungin Sodium 100 mg/ (Sodium Chloride) 100 mls @ 100 mls/hr IV DAILY [facility]LOS PRN Reason: Protocol Stop: 11/09/17 12:16 Last Admin: 10/26/17 13:14 Dose: Not Given Insulin Human NPH (Humulin N) 20 units SC QPM [facility] Last Admin: 10/26/17 17:23 Dose: Not Given Insulin Human Regular (Humulin R High) 0 units SC ACHS [facility] PRN Reason: Protocol Last Admin: 10/26/17 21:34 Dose: Not Given Latanoprost (Xalatan Opht) 0 ml OU HS [facility] Last Admin: 10/26/17 21:36 Dose: 2.5 ml Levothyroxine Sodium (Synthroid) 25 mcg PO 0600 [facility] Last Admin: 10/27/17 06:15 Dose: 25 mcg Loratadine (Claritin) 10 mg PO HS [facility] Last Admin: 10/26/17 21:33 Dose: 10 mg Metoprolol Tartrate (Lopressor) 25 mg PO BID [facility] Last Admin: 10/26/17 17:29 Dose: 25 mg Montelukast Sodium (Singulair) 10 mg PO HS [facility] Last Admin: 10/26/17 21:33 Dose: 10 mg Multivitamins (Thera Tab) 1 tab PO DAILY [facility] Last Admin: 10/26/17 10:18 Dose: 1 tab Salmeterol Xinafoate /Fluticaso [Advair Hfa 230-21] 1 puff IH BID [facility] Last Admin: 10/26/17 18:04 Dose: Not Given [id number] Ethyl Esters (Lovaza) 2 gm PO BID [facility] Last Admin: 10/26/17 17:29 Dose: 1 gm Ondansetron HCl (Zofran Inj) 4 mg IVP Q6H PRN PRN Reason: Nausea/Vomiting Last Admin: 10/23/17 06:48 Dose: 4 mg Oxycodone/Acetaminophen (Percocet 5/325 Mg Tab) 1 tab PO BID PRN PRN Reason: pain Stop: 10/27/17 19:10 Last Admin: 10/27/17 07:08 Dose: 1 tab Oxycodone/Acetaminophen (Percocet 5/325 Mg Tab) 2 tab PO Q4H PRN PRN Reason: foot pain Stop: 10/27/17 19:13 Last Admin: 10/26/17 21:33 Dose: 2 tab Pregabalin (Lyrica) 50 mg PO HS [facility] Last Admin: 10/25/17 21:11 Dose: 50 mg Sevelamer HCl (Renagel) 1,600 mg PO WM [facility] Last Admin: 10/26/17 17:29 Dose: 800 mg Sodium Chloride ([place] Nasal [place]) 0 ml NS Q2H PRN PRN Reason: Nasal congestion Tamsulosin HCl (Flomax) 0.4 mg PO [facility] Last Admin: 10/26/17 21:34 Dose: 0.4 mg Ticagrelor (Brilinta) 90 mg PO BID [facility] Last Admin: 10/19/17 17:13 Dose: 90 mg - Labs Labs: 10/27/17 06:45 10/27/17 06:45 PT 17.9 SECONDS (9.4-12.5) H 10/20/17 07:00 INR 1.54 10/20/17 07:00 APTT 80.4 Seconds (25.1-36.5) H 10/23/17 19:54 - Constitutional Appears: Well, No Acute Distress - Head Exam Head Exam: ATRAUMATIC, NORMAL INSPECTION, NORMOCEPHALIC - Eye Exam Eye Exam: Normal appearance - ENT Exam ENT Exam: Mucous Membranes Moist - Neck Exam Neck Exam: Normal Inspection - Respiratory Exam Respiratory Exam: Clear to Ausculation Bilateral, NORMAL BREATHING PATTERN. 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 holding anticoagulation prior to procedure D/w Dr. Morris, pt medically optimized for R BKA on 10/30 C/w hemodialysis Zyvox and Merrem held due to potential for inducing thrombocytopenia Pt reports no bloody BMs for 2 days, continue to monitor Pt s/p EGD and flexible sigmoidoscopy by Dr. Ahn, f/u recs Bleeding scan demonstrated abnormal activity in rectum, consistent w/ acute bleed Further recommendations per Dr. Renan Rodriguez, DO PGY-1
[2017-10-27] MEDS: Bacitracin 500 Units/gm Oint Foilpak UD TOP SCH ×3 (10:23→18:49)
[2017-10-27] MEDS: Multivitamin Therapeutic Tab PO SCH (10:23)
[2017-10-27] MEDS: Omega-3-Acid Ethyl Esters 1 GM Cap PO SCH ×2 (10:25→17:04)
[2017-10-27] MEDS: SALMETEROL XINAFOATE IH SCH ×2 (10:30→17:05)
[2017-10-27] MEDS: FLUTICASO IH SCH ×2 (10:30→17:05)
--- NOTE | 2017-10-27 14:21 | CP.PCM.PN ---
Subjective - Date & Time of Evaluation Date of Evaluation: 10/27/17 Time of Evaluation: 14:21 - Subjective Subjective: Jojo Crouch DO, PGY-2: GI Progress Note for Dr. Ahn Patient seen and examined at bedside. Patient reports not passing a bowel movement in the interim. He denies any nausea, abdominal pain, vomiting, or bloody bowel movements. Objective - Vital Signs/Intake and Output Vital Signs (last 24 hours): Temp Pulse Resp BP Pulse Ox 97.5 F L 82 18 140/57 L 100 10/27/17 06:00 10/27/17 06:00 10/27/17 06:00 10/27/17 07:31 10/27/17 06:00 - Medications Medications: Current Medications Albuterol/Ipratropium (Duoneb 3 Mg/0.5 Mg (3 Ml) Ud) 3 ml IH [id number] PRN PRN Reason: Shortness of Breath Last Admin: 10/23/17 13:35 Dose: 3 ml Arformoterol Tartrate (Brovana) 15 mcg IH [id number] [facility] Last Admin: 10/27/17 07:13 Dose: 15 mcg Aspirin (Ecotrin) 81 mg PO DAILY [facility] Last Admin: 10/27/17 10:23 Dose: 81 mg Atorvastatin Calcium (Lipitor) 40 mg PO DIN [facility] Last Admin: 10/26/17 17:30 Dose: 40 mg Bacitracin (Bacitracin) 1 ea TOP BID [facility] Last Admin: 10/27/17 10:23 Dose: 1 ea Budesonide (Pulmicort Respules) 0.5 mg IH [id number] [facility] Last Admin: 10/27/17 07:13 Dose: 0.5 mg Calcium Acetate (Phoslo) 1,334 mg PO WM [facility] Last Admin: 10/27/17 08:21 Dose: 667 mg Diphenhydramine HCl (Benadryl) 25 mg PO HS PRN PRN Reason: Insomnia Last Admin: 10/26/17 21:31 Dose: 25 mg Ergocalciferol (Drisdol 50,000 Intl Units Cap) 1 cap PO WED [facility] Last Admin: 10/25/17 15:12 Dose: Not Given Famotidine (Pepcid) 10 mg PO 2200 [facility] Last Admin: 10/26/17 21:31 Dose: 10 mg Fenofibrate (Tricor) 145 mg PO DAILY [facility] Last Admin: 10/27/17 10:23 Dose: 145 mg Hydralazine HCl (Apresoline) 25 mg PO BID [facility] Last Admin: 10/21/17 17:04 Dose: Not Given Argatroban 250 mg/ Dextrose 252.5 mls @ 10.5 mls/hr IV .Q24H CARLOS; 2 MCG/KG/MIN PRN Reason: Protocol Last Admin: 10/23/17 17:08 Dose: 10.5 mls/hr Micafungin Sodium 100 mg/ (Sodium Chloride) 100 mls @ 100 mls/hr IV DAILY [facility] PRN Reason: Protocol Stop: 11/09/17 12:16 Last Admin: 10/26/17 13:14 Dose: Not Given Insulin Human NPH (Humulin N) 20 units SC QPM [facility] Last Admin: 10/26/17 17:23 Dose: Not Given Insulin Human Regular (Humulin R High) 0 units SC ACHS [facility] PRN Reason: Protocol Last Admin: 10/27/17 08:07 Dose: Not Given Latanoprost (Xalatan Opht) 0 ml OU HS [facility] Last Admin: 10/26/17 21:36 Dose: 2.5 ml Levothyroxine Sodium (Synthroid) 25 mcg PO 0600 [facility] Last Admin: 10/27/17 06:15 Dose: 25 mcg Loratadine (Claritin) 10 mg PO HS [facility] Last Admin: 10/26/17 21:33 Dose: 10 mg Metoprolol Tartrate (Lopressor) 25 mg PO BID [facility] Last Admin: 10/27/17 10:23 Dose: Not Given Montelukast Sodium (Singulair) 10 mg PO HS [facility] Last Admin: 10/26/17 21:33 Dose: 10 mg Multivitamins (Thera Tab) 1 tab PO DAILY [facility] Last Admin: 10/27/17 10:23 Dose: 1 tab Salmeterol Xinafoate /Fluticaso [Advair Hfa 230-21] 1 puff IH BID [facility] Last Admin: 10/26/17 18:04 Dose: Not Given [id number] Ethyl Esters (Lovaza) 2 gm PO BID [facility] Last Admin: 10/27/17 10:25 Dose: 1 gm Ondansetron HCl (Zofran Inj) 4 mg IVP Q6H PRN PRN Reason: Nausea/Vomiting Last Admin: 10/23/17 06:48 Dose: 4 mg Oxycodone/Acetaminophen (Percocet 5/325 Mg Tab) 1 tab PO BID PRN PRN Reason: pain Stop: 10/27/17 19:10 Last Admin: 10/27/17 07:08 Dose: 1 tab Oxycodone/Acetaminophen (Percocet 5/325 Mg Tab) 2 tab PO Q4H PRN PRN Reason: foot pain Stop: 10/27/17 19:13 Last Admin: 10/26/17 21:33 Dose: 2 tab Pregabalin (Lyrica) 50 mg PO HS [facility] Last Admin: 10/25/17 21:11 Dose: 50 mg Sevelamer HCl (Renagel) 1,600 mg PO WM [facility] Last Admin: 10/27/17 08:20 Dose: 800 mg Sodium Chloride ([place] Nasal [place]) 0 ml NS Q2H PRN PRN Reason: Nasal congestion Tamsulosin HCl (Flomax) 0.4 mg PO [facility] Last Admin: 10/26/17 21:34 Dose: 0.4 mg Ticagrelor (Brilinta) 90 mg PO BID [facility] Last Admin: 10/19/17 17:13 Dose: 90 mg - Labs Labs: 10/27/17 06:45 10/27/17 06:45 PT 17.9 SECONDS (9.4-12.5) H 10/20/17 07:00 INR 1.54 10/20/17 07:00 APTT 80.4 Seconds (25.1-36.5) H 10/23/17 19:54 - Constitutional Appears: Well, Non-toxic - Head Exam Head Exam: ATRAUMATIC, NORMOCEPHALIC - Eye Exam Eye Exam: EOMI, Normal appearance - Neck Exam Neck Exam: Normal Inspection - GI/Abdominal Exam GI & Abdominal Exam: Soft. 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 The patient's Argatroban was held after he had bright red blood per rectum and he was transfused platelets and PRBCS supportively. He underwent a GI bleeding scan that showed increased activity in the rectum. The patient underwent an upper endoscopy and unprepped, flexible sigmoidoscopy that did not show any active bleeding. At this time, we recommend resuming the patient's Brillinta and aspirin, unless otherwise indicated by cardiology, as the HIT antibody was negative and there was low suspicion of HIT given there was no thrombosis, venous or arterial suspected. Case was reviewed and discussed with attending physician, Dr. Ahn
--- NOTE | 2017-10-27 14:54 | CP.PCM.PN ---
Addendum entered and electronically signed by Asia Aguila DO 10/27/17 16:17 : Magaly, RN: Pt is only taking 1/2 sevelamer. Per pt: he explained that his PO intake decreases, so he cut down the sevelamer Will check Phosphate level Pt had BM today, soft, unknown color. Original Note: <Asia Aguila - Last Filed: 10/27/17 15:01> Subjective - Date & Time of Evaluation Date of Evaluation: 10/27/17 Time of Evaluation: 07:00 - Subjective Subjective: PGY-[address] Potter No BM x 2d. Hb stable. Denies dizziness, CP, SOB. Objective - Vital Signs/Intake and Output Vital Signs (last 24 hours): Temp Pulse Resp BP Pulse Ox 97.5 F L 82 18 140/57 L 100 10/27/17 06:00 10/27/17 06:00 10/27/17 06:00 10/27/17 07:31 10/27/17 06:00 - Medications Medications: Current Medications Albuterol/Ipratropium (Duoneb 3 Mg/0.5 Mg (3 Ml) Ud) 3 ml IH [id number] PRN PRN Reason: Shortness of Breath Last Admin: 10/23/17 13:35 Dose: 3 ml Arformoterol Tartrate (Brovana) 15 mcg IH [id number] [facility] Last Admin: 10/27/17 07:13 Dose: 15 mcg Aspirin (Ecotrin) 81 mg PO DAILY [facility] Last Admin: 10/27/17 10:23 Dose: 81 mg Atorvastatin Calcium (Lipitor) 40 mg PO DIN [facility] Last Admin: 10/26/17 17:30 Dose: 40 mg Bacitracin (Bacitracin) 1 ea TOP BID [facility] Last Admin: 10/27/17 10:23 Dose: 1 ea Budesonide (Pulmicort Respules) 0.5 mg IH [id number] [facility] Last Admin: 10/27/17 07:13 Dose: 0.5 mg Calcium Acetate (Phoslo) 1,334 mg PO WM [facility] Last Admin: 10/27/17 12:00 Dose: Not Given Diphenhydramine HCl (Benadryl) 25 mg PO HS PRN PRN Reason: Insomnia Last Admin: 10/26/17 21:31 Dose: 25 mg Ergocalciferol (Drisdol 50,000 Intl Units Cap) 1 cap PO WED [facility] Last Admin: 10/25/17 15:12 Dose: Not Given Famotidine (Pepcid) 10 mg PO 2200 [facility] Last Admin: 10/26/17 21:31 Dose: 10 mg Fenofibrate (Tricor) 145 mg PO DAILY [facility] Last Admin: 10/27/17 10:23 Dose: 145 mg Hydralazine HCl (Apresoline) 25 mg PO BID [facility] Last Admin: 10/21/17 17:04 Dose: Not Given Argatroban 250 mg/ Dextrose 252.5 mls @ 10.5 mls/hr IV .Q24H CARLOS; 2 MCG/KG/MIN PRN Reason: Protocol Last Admin: 10/23/17 17:08 Dose: 10.5 mls/hr Micafungin Sodium 100 mg/ (Sodium Chloride) 100 mls @ 100 mls/hr IV DAILY [facility] PRN Reason: Protocol Stop: 11/09/17 12:16 Last Admin: 10/26/17 13:14 Dose: Not Given Insulin Human NPH (Humulin N) 20 units SC QPM [facility] Last Admin: 10/26/17 17:23 Dose: Not Given Insulin Human Regular (Humulin R High) 0 units SC ACHS [facility] PRN Reason: Protocol Last Admin: 10/27/17 12:00 Dose: Not Given Latanoprost (Xalatan Opht) 0 ml OU HS [facility] Last Admin: 10/26/17 21:36 Dose: 2.5 ml Levothyroxine Sodium (Synthroid) 25 mcg PO 0600 [facility] Last Admin: 10/27/17 06:15 Dose: 25 mcg Loratadine (Claritin) 10 mg PO HS [facility] Last Admin: 10/26/17 21:33 Dose: 10 mg Metoprolol Tartrate (Lopressor) 25 mg PO BID [facility] Last Admin: 10/27/17 10:23 Dose: Not Given Montelukast Sodium (Singulair) 10 mg PO HS [facility] Last Admin: 10/26/17 21:33 Dose: 10 mg Multivitamins (Thera Tab) 1 tab PO DAILY [facility] Last Admin: 10/27/17 10:23 Dose: 1 tab Salmeterol Xinafoate /Fluticaso [Advair Hfa 230-21] 1 puff IH BID [facility] Last Admin: 10/27/17 10:30 Dose: Not Given Dtiuj-6-Jaus Ethyl Esters (Lovaza) 2 gm PO BID [facility] Last Admin: 10/27/17 10:25 Dose: 1 gm Ondansetron HCl (Zofran Inj) 4 mg IVP Q6H PRN PRN Reason: Nausea/Vomiting Last Admin: 10/23/17 06:48 Dose: 4 mg Oxycodone/Acetaminophen (Percocet 5/325 Mg Tab) 1 tab PO BID PRN PRN Reason: pain Stop: 10/27/17 19:10 Last Admin: 10/27/17 07:08 Dose: 1 tab Oxycodone/Acetaminophen (Percocet 5/325 Mg Tab) 2 tab PO Q4H PRN PRN Reason: foot pain Stop: 10/27/17 19:13 Last Admin: 10/26/17 21:33 Dose: 2 tab Pregabalin (Lyrica) 50 mg PO [facility] Last Admin: 10/25/17 21:11 Dose: 50 mg Sevelamer HCl (Renagel) 1,600 mg PO [facility] Last Admin: 10/27/17 12:00 Dose: Not Given Sodium Chloride ([place] Nasal [place]) 0 ml NS Q2H PRN PRN Reason: Nasal congestion Tamsulosin HCl (Flomax) 0.4 mg PO [facility] Last Admin: 10/26/17 21:34 Dose: 0.4 mg Ticagrelor (Brilinta) 90 mg PO BID [facility] Last Admin: 10/19/17 17:13 Dose: 90 mg - Labs Labs: 10/27/17 06:45 10/27/17 06:45 PT 17.9 SECONDS (9.4-12.5) H 10/20/17 07:00 INR 1.54 10/20/17 07:00 APTT 80.4 Seconds (25.1-36.5) H 10/23/17 19:54 - Constitutional Appears: No Acute Distress - Head Exam Head Exam: ATRAUMATIC, NORMAL INSPECTION, NORMOCEPHALIC - Eye Exam Eye Exam: EOMI, Normal appearance, PERRL. absent: Scleral icterus Pupil Exam: NORMAL ACCOMODATION - ENT Exam ENT Exam: Mucous Membranes Moist - Neck Exam Additional comments: supple - Respiratory Exam Respiratory Exam: Clear to Ausculation Bilateral. absent: Rales, Rhonchi, Wheezes - Cardiovascular Exam Cardiovascular Exam: REGULAR RHYTHM, +S1, +S2. absent: Murmur - GI/Abdominal Exam GI & Abdominal Exam: Soft, Normal Bowel Sounds. absent: Rigid, Tenderness - Extremities Exam Extremities Exam: absent: Calf Tenderness, Pedal Edema Additional comments: R dressing d/c/i - Back Exam Back Exam: absent: CVA tenderness (L), CVA tenderness (R) - Neurological Exam Neurological Exam: Alert, Awake, Oriented x3 Neuro motor strength exam: Left Upper Extremity: 5, Right Upper Extremity: 5, Left Lower Extremity: 5, Right Lower Extremity: 5 - Psychiatric Exam Psychiatric exam: Normal Affect, Normal Mood - Skin Skin Exam: Dry, Warm Assessment and Plan - Assessment and Plan (Free Text) Plan: Mr Berger, 52 M recently s/p transmetatarsal amputation of the right foot () due to wet gangrene to the right foot and bone exposure. He is on Dual antiplatelet for recent cardiac stent in May. His RLE stump is not healing, possibly because he is a vasculopath and he weight bear despite warning. Due to the non-healing wound due to poor perfusion, he was scheduled for R BKA. The surgery was delayed twice because he developed fungemia on zyvox, merem, micafungin. 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 He was transferred to ICU for agatroban but developed GI bleed. Since agatroban is held, no longer need ICU, and he transferred to telemetry. Now off ASA, brilinta, heparin SC, agatroban. 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 Stop protonix, merem, zyvox to r/o other medication etiology Fungemia (10/16), Had ruled out thrombi @ pacemaker lead. Had ruled out Opthalmitis. Anemia at 7.3 (baseline 8-9), Anemia of chronic disease and due to ESRD, asymptomatic, s/p 3u PRBC. Goal to reach Hb 10 for surgery. GI bleed, due to thrombocytopenia and agatroban? -- resolved CAD s/p 2 YORDY in LAD (06/13/17) on dual-antiplatelet, CHF, pacemaker (metronic) HTN/PVD RENATA, cannot tolerate CPAP; COPD; severe pulmonary HTN DM_2__, peripheral neuropathy Hx CVA with L residual weakness ESRD MWF due to HTN/DM, with Anemia, Hyperphosphatemia, Secondary Hyperparathyroidism Hypothyroidism Moxifloxacin and PCN allergy P: For non-healing wound R stump, surgery next monday vs monday after dialysis. Percocet PRN; Lyrica HS Cardiology cleared. Pending ID and heme clearance for surgery. Platelet in 50s. Hold ASA and Brilinta for surgery. High uriel-operative cardiac risk. GI bleed seem resolved. Hb stable at 9. EGD showed supermucosal tear and colonoscopy showed stool, no active bleed. tolerated diet For HIT, Argatroban gtt held. Pending heparin ab result____. Serotonin release assy negative. For fungemia, mycafungin, day __9___. Stopped Merem & Linezolid (x 6 day) for possible cause of low platelet; patient may need up to 4 weeks of antifungal therapy Repeat blood culture (10/19) negative. Echo showed EF 55. RVSP 49. Aortic cusp calcified cannot r/o veg. No sig changes to echo 1 month ago. LASHAWN no vegetation in pacemaker lead. pthalmologist has already ruled out endopthalmitis. For anemia, sp 5u RBC. goal Hb 10 for surgery. For thrombocytopenia, s/p 2 plt, continue to trend plt For CAD, Continue metoprolol, lipitor, fenofibrate, lovaza. ASA/Brilinta on hold. For HTN, hydralazine on hold for nomotensive For DM2, hold glipizide, reduce humulin N to 20u per last hospital insulin requirement, lispro-low sliding scale For chronic ESRD, HD MWF. Continue Phoslo, Vit D2, multivitamin, sevelamer For COPD/RENATA, HOB 45, Duoneb PRN, brovana, budesonide, montelikast. Cannot tolerate CPAP For [place], bimatoprost For insomnia, benadryl HS prn For hypothyroidism, synthroid 25 Flomax for Bph Prophylaxis: high risk of GI stress ulcer due to bleed/fungemia. consider Use low dose pepcid, pending GI rec. 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 Off protonix due to low plt. Off anticoagulant due to GI bleed Discharge planning: BKA next Monday s/p dialysis or Monday. May need midline for total of 4 weeks antifungal, will get it after surgery. Rehab. Need to decide when to be back on antiplatelet for recent YORDY after BKA Consult: Forest Willis, Renan, Dre, Rich, Lali, Jensen, Anabelle, Cyndee Access: L AV fistula. Peripheral IV s/r/d/w Dr. Potter <Gallo Potter S - Last Filed: 10/27/17 21:13> Objective - Vital Signs/Intake and Output Vital Signs (last 24 hours): Temp Pulse Resp BP Pulse Ox 97.5 F L 82 18 99/45 L 100 10/27/17 06:00 10/27/17 06:00 10/27/17 06:00 10/27/17 17:04 10/27/17 06:00 - Medications Medications: Current Medications Albuterol/Ipratropium (Duoneb 3 Mg/0.5 Mg (3 Ml) Ud) 3 ml IH [id number] PRN PRN Reason: Shortness of Breath Last Admin: 10/23/17 13:35 Dose: 3 ml Arformoterol Tartrate (Brovana) 15 mcg IH [id number] [facility] Last Admin: 10/27/17 21:04 Dose: 15 mcg Aspirin (Ecotrin) 81 mg PO DAILY [facility] Last Admin: 10/27/17 10:23 Dose: 81 mg Atorvastatin Calcium (Lipitor) 40 mg PO DIN [facility] Last Admin: 10/27/17 16:56 Dose: 40 mg Bacitracin (Bacitracin) 1 ea TOP BID [facility] Last Admin: 10/27/17 18:49 Dose: 1 ea Budesonide (Pulmicort Respules) 0.5 mg IH [id number] [facility] Last Admin: 10/27/17 21:04 Dose: 0.5 mg Calcium Acetate (Phoslo) 1,334 mg PO WM [facility] Last Admin: 10/27/17 16:58 Dose: 667 mg Diphenhydramine HCl (Benadryl) 25 mg PO HS PRN PRN Reason: Insomnia Last Admin: 10/26/17 21:31 Dose: 25 mg Ergocalciferol (Drisdol 50,000 Intl Units Cap) 1 cap PO WED [facility] Last Admin: 10/25/17 15:12 Dose: Not Given Famotidine (Pepcid) 10 mg PO 2200 [facility] Last Admin: 10/26/17 21:31 Dose: 10 mg Fenofibrate (Tricor) 145 mg PO DAILY [facility] Last Admin: 10/27/17 10:23 Dose: 145 mg Hydralazine HCl (Apresoline) 25 mg PO BID [facility] Last Admin: 10/21/17 17:04 Dose: Not Given Argatroban 250 mg/ Dextrose 252.5 mls @ 10.5 mls/hr IV .Q24H CARL[facility]; 2 MCG/KG/MIN PRN Reason: Protocol Last Admin: 10/23/17 17:08 Dose: 10.5 mls/hr Micafungin Sodium 100 mg/ (Sodium Chloride) 100 mls @ 100 mls/hr IV DAILY [facility] PRN Reason: Protocol Stop: 11/09/17 12:16 Last Admin: 10/27/17 15:32 Dose: 100 mls/hr Insulin Human NPH (Humulin N) 20 units SC QPM [facility] Last Admin: 10/27/17 17:03 Dose: Not Given Insulin Human Regular (Humulin R High) 0 units SC ACHS [facility] PRN Reason: Protocol Last Admin: 10/27/17 16:04 Dose: Not Given Latanoprost (Xalatan Opht) 0 ml OU HS [facility] Last Admin: 10/26/17 21:36 Dose: 2.5 ml Levothyroxine Sodium (Synthroid) 25 mcg PO 0600 [facility] Last Admin: 10/27/17 06:15 Dose: 25 mcg Loratadine (Claritin) 10 mg PO HS [facility] Last Admin: 08/09/18 21:33 Dose: 10 mg Metoprolol Tartrate (Lopressor) 25 mg PO BID [facility] Last Admin: 10/27/17 17:04 Dose: Not Given Montelukast Sodium (Singulair) 10 mg PO [facility] Last Admin: 10/26/17 21:33 Dose: 10 mg Multivitamins (Thera Tab) 1 tab PO DAILY [facility] Last Admin: 10/27/17 10:23 Dose: 1 tab Salmeterol Xinafoate /Fluticaso [Advair Hfa 230-21] 1 puff IH BID [facility] Last Admin: 10/27/17 17:05 Dose: Not Given Jgrll-2-Avat Ethyl Esters (Lovaza) 2 gm PO BID [facility] Last Admin: 10/27/17 17:04 Dose: 1 gm Ondansetron HCl (Zofran Inj) 4 mg IVP Q6H PRN PRN Reason: Nausea/Vomiting Last Admin: 10/23/17 06:48 Dose: 4 mg Pregabalin (Lyrica) 50 mg PO [facility] Last Admin: 10/25/17 21:11 Dose: 50 mg Sevelamer HCl (Renagel) 1,600 mg PO [facility] Last Admin: 10/27/17 16:56 Dose: 800 mg Sodium Chloride ([place] Nasal [place]) 0 ml NS Q2H PRN PRN Reason: Nasal congestion Tamsulosin HCl (Flomax) 0.4 mg PO [facility] Last Admin: 10/26/17 21:34 Dose: 0.4 mg Ticagrelor (Brilinta) 90 mg PO BID [facility] Last Admin: 10/19/17 17:13 Dose: 90 mg - Labs Labs: 10/27/17 06:45 10/27/17 06:45 PT 17.9 SECONDS (9.4-12.5) H 10/20/17 07:00 INR 1.54 10/20/17 07:00 APTT 80.4 Seconds (25.1-36.5) H 10/23/17 19:54 Assessment and Plan - Assessment and Plan (Free Text) Plan: Pt seen and examined. I have reviewed the note of the chief medical director and agree with it. I have discussed the assessment and plan with the resident. I have reviewed the patient's labs and medications. Pt is getting HD today. He is going to get surgery done next week. Spoke to Dr Urrutia. Hb has been stable. Pt on Flomax for BPH. Thrombocytopenia improving.
[2017-10-27] MEDS: Micafungin 100 MG in Sodium Chloride 0.9% 100 ML IV SCH (15:32)
[2017-10-27] MEDS: Insulin Human NPH 1 UNITS/0.01 ML SC SCH (17:03)
--- NOTE | 2017-10-27 18:07 | CP.PCM.PN ---
<Marciano Clemente - Last Filed: 10/27/17 18:05> Subjective - Date & Time of Evaluation Date of Evaluation: 10/27/17 Time of Evaluation: 18:05 - Subjective Subjective: Podiatry Progress Note for Dr. Villanueva 52M seen at bedside for right foot TMA stump ulceration with his family members present. Patient is AAO x 3. States that pain to ulceraton site is absent at this time. Denies any further pedal complaints at this time. Denies any recent N /V/F/CP/SOB Objective - Vital Signs/Intake and Output Vital Signs (last 24 hours): Temp Pulse Resp BP Pulse Ox 97.5 F L 82 18 99/45 L 100 10/27/17 06:00 10/27/17 06:00 10/27/17 06:00 10/27/17 17:04 10/27/17 06:00 - Medications Medications: Current Medications Albuterol/Ipratropium (Duoneb 3 Mg/0.5 Mg (3 Ml) Ud) 3 ml IH [id number] PRN PRN Reason: Shortness of Breath Last Admin: 10/23/17 13:35 Dose: 3 ml Arformoterol Tartrate (Brovana) 15 mcg IH [id number] [facility] Last Admin: 10/27/17 07:13 Dose: 15 mcg Aspirin (Ecotrin) 81 mg PO DAILY [facility] Last Admin: 10/27/17 10:23 Dose: 81 mg Atorvastatin Calcium (Lipitor) 40 mg PO DIN [facility] Last Admin: 10/27/17 16:56 Dose: 40 mg Bacitracin (Bacitracin) 1 ea TOP BID [facility] Last Admin: 10/27/17 10:23 Dose: 1 ea Budesonide (Pulmicort Respules) 0.5 mg IH [id number] [facility] Last Admin: 10/27/17 07:13 Dose: 0.5 mg Calcium Acetate (Phoslo) 1,334 mg PO WM [facility] Last Admin: 10/27/17 16:58 Dose: 667 mg Diphenhydramine HCl (Benadryl) 25 mg PO HS PRN PRN Reason: Insomnia Last Admin: 10/26/17 21:31 Dose: 25 mg Ergocalciferol (Drisdol 50,000 Intl Units Cap) 1 cap PO WED [facility] Last Admin: 10/25/17 15:12 Dose: Not Given Famotidine (Pepcid) 10 mg PO 2200 [facility] Last Admin: 10/26/17 21:31 Dose: 10 mg Fenofibrate (Tricor) 145 mg PO DAILY [facility] Last Admin: 10/27/17 10:23 Dose: 145 mg Hydralazine HCl (Apresoline) 25 mg PO BID [facility] Last Admin: 10/21/17 17:04 Dose: Not Given Argatroban 250 mg/ Dextrose 252.5 mls @ 10.5 mls/hr IV .Q24H [facility]LOS; 2 MCG/KG/MIN PRN Reason: Protocol Last Admin: 10/23/17 17:08 Dose: 10.5 mls/hr Micafungin Sodium 100 mg/ (Sodium Chloride) 100 mls @ 100 mls/hr IV DAILY [facility] PRN Reason: Protocol Stop: 11/09/17 12:16 Last Admin: 10/27/17 15:32 Dose: 100 mls/hr Insulin Human NPH (Humulin N) 20 units SC QPM [facility] Last Admin: 10/27/17 17:03 Dose: Not Given Insulin Human Regular (Humulin R High) 0 units SC ACHS [facility] PRN Reason: Protocol Last Admin: 10/27/17 16:04 Dose: Not Given Latanoprost (Xalatan Opht) 0 ml OU HS [facility] Last Admin: 10/26/17 21:36 Dose: 2.5 ml Levothyroxine Sodium (Synthroid) 25 mcg PO 0600 [facility] Last Admin: 10/27/17 06:15 Dose: 25 mcg Loratadine (Claritin) 10 mg PO HS [facility] Last Admin: 10/26/17 21:33 Dose: 10 mg Metoprolol Tartrate (Lopressor) 25 mg PO BID [facility] Last Admin: 10/27/17 17:04 Dose: Not Given Montelukast Sodium (Singulair) 10 mg PO HS [facility] Last Admin: 10/26/17 21:33 Dose: 10 mg Multivitamins (Thera Tab) 1 tab PO DAILY [facility] Last Admin: 10/27/17 10:23 Dose: 1 tab Salmeterol Xinafoate /Fluticaso [Advair Hfa 230-21] 1 puff IH BID [facility] Last Admin: 10/27/17 17:05 Dose: Not Given Mwelm-6-Tncl Ethyl Esters (Lovaza) 2 gm PO BID [facility] Last Admin: 10/27/17 17:04 Dose: 1 gm Ondansetron HCl (Zofran Inj) 4 mg IVP Q6H PRN PRN Reason: Nausea/Vomiting Last Admin: 10/23/17 06:48 Dose: 4 mg Oxycodone/Acetaminophen (Percocet 5/325 Mg Tab) 1 tab PO BID PRN PRN Reason: pain Stop: 10/27/17 19:10 Last Admin: 10/27/17 07:08 Dose: 1 tab Oxycodone/Acetaminophen (Percocet 5/325 Mg Tab) 2 tab PO Q4H PRN PRN Reason: foot pain Stop: 10/27/17 19:13 Last Admin: 10/26/17 21:33 Dose: 2 tab Pregabalin (Lyrica) 50 mg PO HS [facility] Last Admin: 10/25/17 21:11 Dose: 50 mg Sevelamer HCl (Renagel) 1,600 mg PO [facility] Last Admin: 10/27/17 16:56 Dose: 800 mg Sodium Chloride ([place] Nasal [place]) 0 ml NS Q2H PRN PRN Reason: Nasal congestion Tamsulosin HCl (Flomax) 0.4 mg PO [facility] Last Admin: 10/26/17 21:34 Dose: 0.4 mg Ticagrelor (Brilinta) 90 mg PO BID [facility] Last Admin: 10/19/17 17:13 Dose: 90 mg - Labs Labs: 10/27/17 06:45 10/27/17 06:45 PT 17.9 SECONDS (9.4-12.5) H 10/20/17 07:00 INR 1.54 10/20/17 07:00 APTT 80.4 Seconds (25.1-36.5) H 10/23/17 19:54 - Constitutional Appears: Well, Non-toxic, No Acute Distress - Extremities Exam Additional comments: RLE focused exam: Vasc: DP/PT pulses faintly palpable b/l. CFT to dorsal foot < 3 seconds. Minimal edema noted to TMA site Derm: distal TMA site flap is coapted and reapproximated with sutures and fitz. No unraveling of sutures or backing out of fitz noted. No dehiscence appreciated to the flap. Entire flap is necrosed at this time. There is an open large ulceration measuring approximately 10 cm x 7 cm x 2 cm on the plantar medial aspect of right foot, wound base mixture of fibrotic and necrotic tissue with serous drainage and no malodor. Serous drainage is increased over last dressing change with minimal bleeding noted as well. No tracking, tunneling or undermining. No probe to bone. Ulceration site does not appear to be worsening at this time Neuro: Epicritic and protective sensation grossly absent - Neurological Exam Neurological Exam: Alert, Awake, Oriented x3 - Psychiatric Exam Psychiatric exam: Normal Affect, Normal Mood Assessment and Plan - Assessment and Plan (Free Text) Assessment: 52M seen at bedside for right foot TMA stump ulceration Plan: Patient seen and evaluated Plan discussed with Dr. Quevedo Afebrile, absent leukocytosis Wound dressed with betadine, Adaptic, ABD, DSD No plan for surgical intervention from podiatry standpoint F/u surgery team plan for R BKA Podiatry will continue to follow while patient in house <Adria Quevedo - Last Filed: 10/27/17 19:30> Objective - Vital Signs/Intake and Output Vital Signs (last 24 hours): Temp Pulse Resp BP Pulse Ox 97.5 F L 82 18 99/45 L 100 10/27/17 06:00 10/27/17 06:00 10/27/17 06:00 10/27/17 17:04 10/27/17 06:00 - Medications Medications: Current Medications Albuterol/Ipratropium (Duoneb 3 Mg/0.5 Mg (3 Ml) Ud) 3 ml IH [id number] PRN PRN Reason: Shortness of Breath Last Admin: 10/23/17 13:35 Dose: 3 ml Arformoterol Tartrate (Brovana) 15 mcg IH [id number] [facility] Last Admin: 10/27/17 07:13 Dose: 15 mcg Aspirin (Ecotrin) 81 mg PO DAILY [facility] Last Admin: 10/27/17 10:23 Dose: 81 mg Atorvastatin Calcium (Lipitor) 40 mg PO DIN [facility] Last Admin: 10/27/17 16:56 Dose: 40 mg Bacitracin (Bacitracin) 1 ea TOP BID [facility] Last Admin: 10/27/17 18:49 Dose: 1 ea Budesonide (Pulmicort Respules) 0.5 mg IH [id number] [facility] Last Admin: 10/27/17 07:13 Dose: 0.5 mg Calcium Acetate (Phoslo) 1,334 mg PO WM [facility] Last Admin: 10/27/17 16:58 Dose: 667 mg Diphenhydramine HCl (Benadryl) 25 mg PO HS PRN PRN Reason: Insomnia Last Admin: 10/26/17 21:31 Dose: 25 mg Ergocalciferol (Drisdol 50,000 Intl Units Cap) 1 cap PO WED [facility] Last Admin: 10/25/17 15:12 Dose: Not Given Famotidine (Pepcid) 10 mg PO 2200 [facility] Last Admin: 10/26/17 21:31 Dose: 10 mg Fenofibrate (Tricor) 145 mg PO DAILY [facility] Last Admin: 10/27/17 10:23 Dose: 145 mg Hydralazine HCl (Apresoline) 25 mg PO BID [facility] Last Admin: 10/21/17 17:04 Dose: Not Given Argatroban 250 mg/ Dextrose 252.5 mls @ 10.5 mls/hr IV .Q24H CARLOS; 2 MCG/KG/MIN PRN Reason: Protocol Last Admin: 10/23/17 17:08 Dose: 10.5 mls/hr Micafungin Sodium 100 mg/ (Sodium Chloride) 100 mls @ 100 mls/hr IV DAILY [facility] PRN Reason: Protocol Stop: 11/09/17 12:16 Last Admin: 10/27/17 15:32 Dose: 100 mls/hr Insulin Human NPH (Humulin N) 20 units SC QPM [facility] Last Admin: 10/27/17 17:03 Dose: Not Given Insulin Human Regular (Humulin R High) 0 units SC ACHS [facility] PRN Reason: Protocol Last Admin: 10/27/17 16:04 Dose: Not Given Latanoprost (Xalatan Opht) 0 ml OU HS [facility] Last Admin: 10/26/17 21:36 Dose: 2.5 ml Levothyroxine Sodium (Synthroid) 25 mcg PO 0600 [facility] Last Admin: 10/27/17 06:15 Dose: 25 mcg Loratadine (Claritin) 10 mg PO HS [facility] Last Admin: 10/26/17 21:33 Dose: 10 mg Metoprolol Tartrate (Lopressor) 25 mg PO BID [facility] Last Admin: 10/27/17 17:04 Dose: Not Given Montelukast Sodium (Singulair) 10 mg PO [facility] Last Admin: 10/26/17 21:33 Dose: 10 mg Multivitamins (Thera Tab) 1 tab PO DAILY [facility] Last Admin: 10/27/17 10:23 Dose: 1 tab Salmeterol Xinafoate /Fluticaso [Advair Hfa 230-21] 1 puff IH BID [facility] Last Admin: 10/27/17 17:05 Dose: Not Given Eyspj-9-Lbfl Ethyl Esters (Lovaza) 2 gm PO BID [facility] Last Admin: 10/27/17 17:04 Dose: 1 gm Ondansetron HCl (Zofran Inj) 4 mg IVP Q6H PRN PRN Reason: Nausea/Vomiting Last Admin: 10/23/17 06:48 Dose: 4 mg Pregabalin (Lyrica) 50 mg PO [facility] Last Admin: 10/25/17 21:11 Dose: 50 mg Sevelamer HCl (Renagel) 1,600 mg PO [facility] Last Admin: 10/27/17 16:56 Dose: 800 mg Sodium Chloride ([place] Nasal [place]) 0 ml NS Q2H PRN PRN Reason: Nasal congestion Tamsulosin HCl (Flomax) 0.4 mg PO [facility] Last Admin: 10/26/17 21:34 Dose: 0.4 mg Ticagrelor (Brilinta) 90 mg PO BID [facility] Last Admin: 10/19/17 17:13 Dose: 90 mg - Labs Labs: 10/27/17 06:45 10/27/17 06:45 PT 17.9 SECONDS (9.4-12.5) H 10/20/17 07:00 INR 1.54 10/20/17 07:00 APTT 80.4 Seconds (25.1-36.5) H 10/23/17 19:54 Attending/Attestation - Attestation I have personally seen and examined this patient.: Yes I have fully participated in the care of the patient.: Yes I have reviewed all pertinent clinical information, including history, physical exam and plan: Yes
--- NOTE | 2017-10-27 18:10 | CP.PCM.PN ---
Subjective - Date & Time of Evaluation Date of Evaluation: 10/27/17 Time of Evaluation: 11:15 - Subjective Subjective: Comfortable in bed, no fevers, no nausea. Objective - Vital Signs/Intake and Output Vital Signs (last 24 hours): Temp Pulse Resp BP Pulse Ox 98.6 F 90 20 123/56 L 100 10/26/17 11:53 10/26/17 11:53 10/26/17 11:53 10/26/17 11:53 10/26/17 06:00 Intake and Output: 10/26/17 10/26/17 06:59 18:59 Intake Total 120 Balance 120 - Medications Medications: Current Medications Albuterol/Ipratropium (Duoneb 3 Mg/0.5 Mg (3 Ml) Ud) 3 ml IH [id number] PRN PRN Reason: Shortness of Breath Last Admin: 10/23/17 13:35 Dose: 3 ml Arformoterol Tartrate (Brovana) 15 mcg IH [id number] [facility] Last Admin: 10/26/17 07:23 Dose: 15 mcg Aspirin (Ecotrin) 81 mg PO DAILY [facility] Last Admin: 10/22/17 09:33 Dose: 81 mg Atorvastatin Calcium (Lipitor) 40 mg PO DIN [facility] Last Admin: 10/25/17 18:36 Dose: 40 mg Bacitracin (Bacitracin) 1 ea TOP BID [facility] Last Admin: 10/25/17 14:49 Dose: 1 ea Budesonide (Pulmicort Respules) 0.5 mg IH [id number] [facility] Last Admin: 10/26/17 07:24 Dose: 0.5 mg Calcium Acetate (Phoslo) 1,334 mg PO WM [facility] Last Admin: 10/26/17 11:41 Dose: 667 mg Diphenhydramine HCl (Benadryl) 25 mg PO HS PRN PRN Reason: Insomnia Last Admin: 10/24/17 22:03 Dose: 25 mg Ergocalciferol (Drisdol 50,000 Intl Units Cap) 1 cap PO WED [facility] Last Admin: 10/25/17 15:12 Dose: Not Given Fenofibrate (Tricor) 145 mg PO DAILY [facility] Last Admin: 10/26/17 10:17 Dose: 145 mg Hydralazine HCl (Apresoline) 25 mg PO BID [facility] Last Admin: 10/21/17 17:04 Dose: Not Given Argatroban 250 mg/ Dextrose 252.5 mls @ 10.5 mls/hr IV .Q24H CARLOS; 2 MCG/KG/MIN PRN Reason: Protocol Last Admin: 10/23/17 17:08 Dose: 10.5 mls/hr Micafungin Sodium 100 mg/ (Sodium Chloride) 100 mls @ 100 mls/hr IV DAILY [facility] PRN Reason: Protocol Stop: 11/09/17 12:16 Insulin Human NPH (Humulin N) 20 units SC QPM [facility] Last Admin: 10/25/17 18:35 Dose: Not Given Insulin Human Regular (Humulin R High) 0 units SC ACHS [facility] PRN Reason: Protocol Last Admin: 10/26/17 11:41 Dose: 4 units Latanoprost (Xalatan Opht) 0 ml OU HS [facility] Last Admin: 10/25/17 21:12 Dose: 2.5 ml Levothyroxine Sodium (Synthroid) 25 mcg PO 0600 [facility] Last Admin: 10/26/17 05:33 Dose: 25 mcg Loratadine (Claritin) 10 mg PO HS [facility] Last Admin: 10/25/17 21:12 Dose: 10 mg Metoprolol Tartrate (Lopressor) 25 mg PO BID [facility] Last Admin: 10/26/17 10:17 Dose: 25 mg Montelukast Sodium (Singulair) [address] [facility] Last Admin: 10/25/17 21:12 Dose: 10 mg Multivitamins (Thera Tab) 1 tab PO DAILY [facility] Last Admin: 10/26/17 10:18 Dose: 1 tab Salmeterol Xinafoate /Fluticaso [Advair Hfa 230-21] 1 puff IH BID [facility] Last Admin: 10/26/17 11:59 Dose: Not Given Ccmrz-9-Djox Ethyl Esters (Lovaza) 2 gm PO BID [facility] Last Admin: 10/26/17 10:18 Dose: 1 gm Ondansetron HCl (Zofran Inj) 4 mg IVP Q6H PRN PRN Reason: Nausea/Vomiting Last Admin: 10/23/17 06:48 Dose: 4 mg Oxycodone/Acetaminophen (Percocet 5/325 Mg Tab) 1 tab PO BID PRN PRN Reason: pain Stop: 10/27/17 19:10 Last Admin: 10/25/17 18:24 Dose: 1 tab Oxycodone/Acetaminophen (Percocet 5/325 Mg Tab) 2 tab PO Q4H PRN PRN Reason: foot pain Stop: 10/27/17 19:13 Last Admin: 10/26/17 08:22 Dose: 2 tab Pregabalin (Lyrica) 50 mg PO HS [facility] Last Admin: 10/25/17 21:11 Dose: 50 mg Sevelamer HCl (Renagel) 1,600 mg PO WM [facility] Last Admin: 10/26/17 11:40 Dose: 800 mg Sodium Chloride ([place] Nasal [place]) 0 ml NS Q2H PRN PRN Reason: Nasal congestion Tamsulosin HCl (Flomax) 0.4 mg PO HS [facility] Last Admin: 10/25/17 21:12 Dose: 0.4 mg Ticagrelor (Brilinta) 90 mg PO BID [facility] Last Admin: 10/19/17 17:13 Dose: 90 mg - Labs Labs: 10/26/17 05:20 10/26/17 05:20 PT 17.9 SECONDS (9.4-12.5) H 10/20/17 07:00 INR 1.54 10/20/17 07:00 APTT 80.4 Seconds (25.1-36.5) H 10/23/17 19:54 - Constitutional Appears: Non-toxic, Chronically Ill - Head Exam Head Exam: NORMAL INSPECTION - Respiratory Exam Respiratory Exam: Decreased Breath Sounds - Cardiovascular Exam Cardiovascular Exam: +S1, +S2 - GI/Abdominal Exam GI & Abdominal Exam: Soft. 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 diff. associated diarrhea ESRD on HD DM obesity CAD S/P PCI retinopathy history of pancreatitis Plan continue Mycamine for C. glabrata in the blood day 9; patient will need Ophtho exam - patient may need up to 4 weeks of antifungal therapy patient was on Argatroban drip for possible HIT, then for BKA once platelet count has improved will continue to follow clinically
[2017-10-27] MEDS: Latanoprost 2.5 ml Opht Soln OU SCH (21:46)
[2017-10-27] MEDS ORDERED: Simethicone 80 mg Chewtab PO ONE (23:51)
--- NOTE | 2017-10-28 00:18 | PN ---
Copied To: Azalea Morris MD Attending MD: Azalea Morris MD DATE: 10/27/2017 FOLLOWUP NOTE SUBJECTIVE: He is comfortable in bed, in no acute distress. He has been afebrile. No bleeding per rectum. No dark-colored stools. Hemoglobin and hematocrit has been stable. Has not required blood transfusion in the past few days. Platelet count is 56, it has improved from before. Serotonin assay is negative. REVIEW OF SYSTEMS: As per HPI. Rest of 12-point review of systems reviewed negative. PHYSICAL EXAMINATION: GENERAL: Comfortable in bed, in no acute distress. VITAL SIGNS: Temperature 98.8, heart rate is 85 per minute, blood pressure 110/70, respiratory rate 18 per minute. HEENT: Pallor positive. Facial puffiness present. NECK: No lymphadenopathy. CHEST: Air entry present and equal, bilateral. No added sound. CARDIOVASCULAR: S1, S2 normal. No murmur. No gallop. ABDOMEN: Soft, nontender. No hepatosplenomegaly. EXTREMITY: No edema. [employer]NA[employer]: Alert and oriented x3. No focal sensory motor deficits. SKIN: No petechiae. No rash. LABORATORY DATA: White count 6.6, hemoglobin 9.5, hematocrit 29.6, platelet 56. Sodium 135, potassium 4.1, BUN 29, creatinine 5.7. LFTs within normal limits. MEDICATIONS: Reviewed. ASSESSMENT: 1. Thrombocytopenia. 2. Anemia. 3. End-stage renal disease, on hemodialysis. 4. Rectal bleeding. 5. Gangrene of the right foot. PLAN: 1. Blood counts are stable. Hemoglobin has improved to 9.5. Platelet count 56,000. I will continue to monitor blood counts. 2. Gangrene, right foot. Surgery planned for Monday. He will need platelet transfusion prior to surgery. We will repeat coags on Monday. He is currently on Brilinta and aspirin. We will consider holding that in anticipation for surgery. Continue other medications. Currently, on hemodialysis. He will be dialyzed on Monday. improved. Azalea Morris MD RACHEL
[2017-10-28 06:21] LABS: BASO # 0.03 K/mm3 (0.0-2.0); BASO % 0.6 % (0.0-3.0); EOS # 0.1 (0.0-0.7); EOS % 2.2 % (1.5-5.0); GRAN # 2.78 (1.4-6.5); GRAN % 55.9 % (50.0-68.0); HEMOGLOBIN 8.3 g/dL (14.0-18.0); LYMPH # 1.4 (1.2-3.4); MEAN CELL VOLUME 90.6 fl (80.0-105.0); MEAN CORPUSCULAR HEMOGLOBIN 28.9 pg (25.0-35.0); MEAN CORPUSCULAR HGB CONC 31.9 g/dl (31.0-37.0); MEAN PLATELET VOLUME 10.6 fl (7.0-11.0); MONO # 0.7 (0.1-0.6); MONO % 13.3 % (1.0-6.0); RBC 2.87 10^6/uL (3.5-6.1); RED CELL DISTRIBUTION WIDTH 16.6 % (11.5-14.5)
[2017-10-28 06:44] LABS: ALB/GLOB RATIO 0.7 (1.1-1.8); ALBUMIN 2.5 g/dL (3.0-4.8); CALCIUM 7.8 mg/dL (8.4-10.5)
[2017-10-28] MEDS: Arformoterol 15 mcg/2 ml Inh Sol IH SCH ×2 (07:04→19:22)
[2017-10-28] MEDS: Budesonide 0.5 mg/2 ml Inhal Susp UD IH SCH ×2 (07:04→19:23)
[2017-10-28] MEDS: Albuterol-Ipratrop 3 mg / 0.5 (3 ml) UD IH PRN ×2 (07:06→13:34)
--- NOTE | 2017-10-28 07:26 | CP.PCM.PN ---
Subjective - Date & Time of Evaluation Date of Evaluation: 10/28/17 Time of Evaluation: 06:50 - Subjective Subjective: General Surgery Note for Dr. Urrutia Patient seen and examined at bedside. No acute event overnight. Patient has no complaints at this time. Denies any bloody BMs. He is tolerating his diet. Denies fever/chills or nausea/vomiting. Plan for OR Monday after hemodialysis. Objective - Vital Signs/Intake and Output Vital Signs (last 24 hours): Temp Pulse Resp BP Pulse Ox 98.8 F 85 18 127/66 99 10/27/17 22:00 10/27/17 22:00 10/27/17 22:00 10/27/17 22:00 10/27/17 22:00 Intake and Output: 10/28/17 10/28/17 06:59 18:59 Intake Total 960 Output Total 0 Balance 960 - Medications Medications: Current Medications Albuterol/Ipratropium (Duoneb 3 Mg/0.5 Mg (3 Ml) Ud) 3 ml IH [id number] PRN PRN Reason: Shortness of Breath Last Admin: 10/28/17 07:06 Dose: 3 ml Arformoterol Tartrate (Brovana) 15 mcg IH [id number] [facility] Last Admin: 10/28/17 07:04 Dose: 15 mcg Aspirin (Ecotrin) 81 mg PO DAILY [facility] Last Admin: 10/27/17 10:23 Dose: 81 mg Atorvastatin Calcium (Lipitor) 40 mg PO DIN [facility] Last Admin: 10/27/17 16:56 Dose: 40 mg Bacitracin (Bacitracin) 1 ea TOP BID [facility] Last Admin: 10/27/17 18:49 Dose: 1 ea Budesonide (Pulmicort Respules) 0.5 mg IH [id number] [facility] Last Admin: 10/28/17 07:04 Dose: 0.5 mg Calcium Acetate (Phoslo) 1,334 mg PO WM [facility] Last Admin: 10/27/17 16:58 Dose: 667 mg Diphenhydramine HCl (Benadryl) 25 mg PO HS PRN PRN Reason: Insomnia Last Admin: 10/27/17 21:46 Dose: 25 mg Ergocalciferol (Drisdol 50,000 Intl Units Cap) 1 cap PO WED [facility] Last Admin: 10/25/17 15:12 Dose: Not Given Famotidine (Pepcid) 10 mg PO 2200 [facility] Last Admin: 10/27/17 21:44 Dose: 10 mg Fenofibrate (Tricor) 145 mg PO DAILY [facility] Last Admin: 10/27/17 10:23 Dose: 145 mg Hydralazine HCl (Apresoline) 25 mg PO BID [facility] Last Admin: 10/21/17 17:04 Dose: Not Given Micafungin Sodium 100 mg/ (Sodium Chloride) 100 mls @ 100 mls/hr IV DAILY [facility] PRN Reason: Protocol Stop: 11/09/17 12:16 Last Admin: 10/27/17 15:32 Dose: 100 mls/hr Insulin Human NPH (Humulin N) 20 units SC QPM [facility] Last Admin: 10/27/17 17:03 Dose: Not Given Insulin Human Regular (Humulin R High) 0 units SC ACHS [facility] PRN Reason: Protocol Last Admin: 10/27/17 21:50 Dose: 2 units Latanoprost (Xalatan Opht) 0 ml OU HS [facility] Last Admin: 10/27/17 21:46 Dose: 2.5 ml Levothyroxine Sodium (Synthroid) 25 mcg PO 0600 [facility] Last Admin: 10/27/17 06:15 Dose: 25 mcg Loratadine (Claritin) 10 mg PO HS [facility] Last Admin: 10/27/17 21:46 Dose: 10 mg Metoprolol Tartrate (Lopressor) 25 mg PO BID [facility] Last Admin: 10/27/17 17:04 Dose: Not Given Montelukast Sodium (Singulair) 10 mg PO HS [facility] Last Admin: 10/27/17 21:44 Dose: 10 mg Multivitamins (Thera Tab) 1 tab PO DAILY [facility] Last Admin: 10/27/17 10:23 Dose: 1 tab Salmeterol Xinafoate /Fluticaso [Advair Hfa 230-21] 1 puff IH BID [facility] Last Admin: 10/27/17 17:05 Dose: Not Given Fuygv-4-Ikkw Ethyl Esters (Lovaza) 2 gm PO BID [facility] Last Admin: 10/27/17 17:04 Dose: 1 gm Ondansetron HCl (Zofran Inj) 4 mg IVP Q6H PRN PRN Reason: Nausea/Vomiting Last Admin: 08/06/18 06:48 Dose: 4 mg Pregabalin (Lyrica) 50 mg PO HS [facility] Last Admin: 10/27/17 21:45 Dose: 50 mg Sevelamer HCl (Renagel) 1,600 mg PO WM [facility] Last Admin: 10/27/17 16:56 Dose: 800 mg Sodium Chloride ([place] Nasal [place]) 0 ml NS Q2H PRN PRN Reason: Nasal congestion Tamsulosin HCl (Flomax) 0.4 mg PO HS [facility] Last Admin: 10/27/17 21:44 Dose: 0.4 mg Ticagrelor (Brilinta) 90 mg PO BID [facility] Last Admin: 10/19/17 17:13 Dose: 90 mg - Labs Labs: 10/28/17 06:00 10/28/17 06:00 PT 17.9 SECONDS (9.4-12.5) H 10/20/17 07:00 INR 1.54 10/20/17 07:00 APTT 80.4 Seconds (25.1-36.5) H 10/23/17 19:54 - Additional Findings Additional findings: - Constitutional Appears: Well, No Acute Distress - Head Exam Head Exam: ATRAUMATIC, NORMAL INSPECTION, NORMOCEPHALIC - Eye Exam Eye Exam: Normal appearance - ENT Exam ENT Exam: Mucous Membranes Moist - Neck Exam Neck Exam: Normal Inspection - Respiratory Exam Respiratory Exam: NORMAL BREATHING PATTERN. - Cardiovascular Exam Cardiovascular Exam: REGULAR RHYTHM - GI/Abdominal Exam GI & Abdominal Exam: Soft, Normal Bowel Sounds - Extremities Exam Additional comments: RLE with dressing dry and intact - Neurological Exam Neurological Exam: Alert, Awake, Oriented x3 - Psychiatric Exam Psychiatric exam: Normal Affect, Normal Mood - Skin Skin Exam: Intact, Normal Color Assessment and Plan - Assessment and Plan (Free Text) Assessment: 52 M with ESRD, PAD, and thrombocytopenia secondary to LUCILLE requiring Right BKA ; Platelets 54K Plan: OR planned for Monday after patient receives dialysis Pre-op work up and consent Will place 2 units of Platelets on hold Monday for OR on Monday As per Dr. Morris, patient is medically optimized for R BKA on 10/30 Agatroban held Brillinta has been held since 10/20 Patient still receiving ASA daily Medical management as per primary Further recommendations as per Dr. Renan Allen PGY2
[2017-10-28] MEDS: Insulin Reg-HIGH-Coverage SC SCH ×4 (08:10→21:42)
[2017-10-28] MEDS: Bacitracin 500 Units/gm Oint Foilpak UD TOP SCH ×2 (09:52→17:19)
[2017-10-28] MEDS: Micafungin 100 MG in Sodium Chloride 0.9% 100 ML IV SCH (09:52)
[2017-10-28] MEDS: Multivitamin Therapeutic Tab PO SCH (09:52)
[2017-10-28] MEDS: Omega-3-Acid Ethyl Esters 1 GM Cap PO SCH ×2 (09:52→17:20)
[2017-10-28] MEDS: SALMETEROL XINAFOATE IH SCH ×2 (10:09→17:22)
[2017-10-28] MEDS: FLUTICASO IH SCH ×2 (10:09→17:22)
--- NOTE | 2017-10-28 10:42 | CP.PCM.PN ---
<Inés Daniel - Last Filed: 10/28/17 10:39> Subjective - Date & Time of Evaluation Date of Evaluation: 10/28/17 Time of Evaluation: 10:39 - Subjective Subjective: Podiatry Progress Note for Dr. Quevedo 52M seen at bedside for right foot TMA stump ulceration with Dr. Quevedo. Patient is AAO x 3. States that pain to ulceraton site is absent at this time. Denies any further pedal complaints at this time. Denies any recent N/V/F/CP/ SOB. As per patient, she will be going to OR on 10/30/17 for BKA right Objective - Vital Signs/Intake and Output Vital Signs (last 24 hours): Temp Pulse Resp BP Pulse Ox 98.8 F 85 18 127/66 99 10/27/17 22:00 10/27/17 22:00 10/27/17 22:00 10/27/17 22:00 10/27/17 22:00 Intake and Output: 10/28/17 10/28/17 06:59 18:59 Intake Total 960 Output Total 0 Balance 960 - Medications Medications: Current Medications Albuterol/Ipratropium (Duoneb 3 Mg/0.5 Mg (3 Ml) Ud) 3 ml IH [id number] PRN PRN Reason: Shortness of Breath Last Admin: 10/28/17 07:06 Dose: 3 ml Arformoterol Tartrate (Brovana) 15 mcg IH [id number] [facility] Last Admin: 10/28/17 07:04 Dose: 15 mcg Atorvastatin Calcium (Lipitor) 40 mg PO DIN [facility] Last Admin: 10/27/17 16:56 Dose: 40 mg Bacitracin (Bacitracin) 1 ea TOP BID [facility] Last Admin: 10/28/17 09:52 Dose: 1 ea Budesonide (Pulmicort Respules) 0.5 mg IH [id number] [facility] Last Admin: 10/28/17 07:04 Dose: 0.5 mg Calcium Acetate (Phoslo) 1,334 mg PO WM [facility] Last Admin: 10/28/17 08:10 Dose: 1,334 mg Diphenhydramine HCl (Benadryl) 25 mg PO HS PRN PRN Reason: Insomnia Last Admin: 10/27/17 21:46 Dose: 25 mg Ergocalciferol (Drisdol 50,000 Intl Units Cap) 1 cap PO WED [facility] Last Admin: 10/25/17 15:12 Dose: Not Given Famotidine (Pepcid) 10 mg PO 2200 [facility] Last Admin: 10/27/17 21:44 Dose: 10 mg Fenofibrate (Tricor) 145 mg PO DAILY [facility] Last Admin: 10/28/17 09:52 Dose: 145 mg Hydralazine HCl (Apresoline) 25 mg PO BID [facility] Last Admin: 10/21/17 17:04 Dose: Not Given Micafungin Sodium 100 mg/ (Sodium Chloride) 100 mls @ 100 mls/hr IV DAILY [facility] PRN Reason: Protocol Stop: 11/09/17 12:16 Last Admin: 10/28/17 09:52 Dose: 100 mls/hr Insulin Human NPH (Humulin N) 20 units SC QPM [facility] Last Admin: 10/27/17 17:03 Dose: Not Given Insulin Human Regular (Humulin R High) 0 units SC ACHS [facility] PRN Reason: Protocol Last Admin: 10/28/17 08:10 Dose: 7 units Latanoprost (Xalatan Opht) 0 ml OU HS [facility] Last Admin: 10/27/17 21:46 Dose: 2.5 ml Levothyroxine Sodium (Synthroid) 25 mcg PO 0600 [facility] Last Admin: 10/27/17 06:15 Dose: 25 mcg Loratadine (Claritin) 10 mg PO HS [facility] Last Admin: 10/27/17 21:46 Dose: 10 mg Metoprolol Tartrate (Lopressor) 25 mg PO BID [facility] Last Admin: 10/28/17 09:53 Dose: 25 mg Montelukast Sodium (Singulair) 10 mg PO HS [facility] Last Admin: 10/27/17 21:44 Dose: 10 mg Multivitamins (Thera Tab) 1 tab PO DAILY [facility] Last Admin: 10/28/17 09:52 Dose: 1 tab Salmeterol Xinafoate /Fluticaso [Advair Hfa 230-21] 1 puff IH BID [facility] Last Admin: 10/27/17 17:05 Dose: Not Given Axdkv-3-[id number] Ethyl Esters (Lovaza) 2 gm PO BID [facility] Last Admin: 10/28/17 09:52 Dose: 2 gm Ondansetron HCl (Zofran Inj) 4 mg IVP Q6H PRN PRN Reason: Nausea/Vomiting Last Admin: 10/23/17 06:48 Dose: 4 mg Pregabalin (Lyrica) 50 mg PO HS [facility] Last Admin: 10/27/17 21:45 Dose: 50 mg Sevelamer HCl (Renagel) 1,600 mg PO WM [facility] Last Admin: 10/28/17 08:10 Dose: 1,600 mg Sodium Chloride ([place] Nasal [place]) 0 ml NS Q2H PRN PRN Reason: Nasal congestion Tamsulosin HCl (Flomax) 0.4 mg PO HS [facility] Last Admin: 10/27/17 21:44 Dose: 0.4 mg Ticagrelor (Brilinta) 90 mg PO BID [facility] Last Admin: 10/19/17 17:13 Dose: 90 mg - Labs Labs: 10/28/17 06:00 10/28/17 06:00 PT 17.9 SECONDS (9.4-12.5) H 10/20/17 07:00 INR 1.54 10/20/17 07:00 APTT 80.4 Seconds (25.1-36.5) H 10/23/17 19:54 - Constitutional Appears: Well, Non-toxic, No Acute Distress - Head Exam Head Exam: ATRAUMATIC, NORMOCEPHALIC - Extremities Exam Additional comments: RLE focused exam: Vasc: DP/PT pulses faintly palpable b/l. CFT to dorsal foot < 3 seconds. Minimal edema noted to TMA site Derm: distal TMA site flap is coapted and reapproximated with sutures and fitz. No unraveling of sutures or backing out of fitz noted. No dehiscence appreciated to the flap. Entire flap is necrosed at this time. There is an open large ulceration measuring approximately 10 cm x 7 cm x 2 cm on the plantar medial aspect of right foot, wound base mixture of fibrotic and granular base. Serous drainage is increased over last dressing change with minimal bleeding noted as well. No tracking, tunneling or undermining. No probe to bone. Ulceration site does not appear to be worsening at this time Neuro: Epicritic and protective sensation grossly absent - Neurological Exam Neurological Exam: Alert, Awake, Oriented x3 - Psychiatric Exam Psychiatric exam: Normal Affect, Normal Mood Assessment and Plan - Assessment and Plan (Free Text) Assessment: 52 y/o male seen at bedside for right foot TMA stump ulceration Plan: Patient seen and evaluated with Dr. Quevedo Chart and labs were reviewed Afebrile, absent leukocytosis Wound dressed with betadine, Adaptic, ABD, DSD No plan for surgical intervention from podiatry standpoint Patient to go to OR Monday for R BKA Podiatry will continue to follow while patient in house <Adria Quevedo - Last Filed: 10/28/17 13:50> Objective - Vital Signs/Intake and Output Vital Signs (last 24 hours): Temp Pulse Resp BP Pulse Ox 98.8 F 89 18 148/73 99 10/27/17 22:00 10/28/17 09:53 10/27/17 22:00 10/28/17 09:53 10/27/17 22:00 Intake and Output: 10/28/17 10/28/17 06:59 18:59 Intake Total 960 Output Total 0 Balance 960 - Medications Medications: Current Medications Albuterol/Ipratropium (Duoneb 3 Mg/0.5 Mg (3 Ml) Ud) 3 ml IH [id number] PRN PRN Reason: Shortness of Breath Last Admin: 10/28/17 13:34 Dose: 3 ml Arformoterol Tartrate (Brovana) 15 mcg IH [id number] [facility] Last Admin: 10/28/17 07:04 Dose: 15 mcg Atorvastatin Calcium (Lipitor) 40 mg PO DIN [facility] Last Admin: 10/27/17 16:56 Dose: 40 mg Bacitracin (Bacitracin) 1 ea TOP BID [facility] Last Admin: 10/28/17 09:52 Dose: 1 ea Budesonide (Pulmicort Respules) 0.5 mg IH [id number] [facility] Last Admin: 10/28/17 07:04 Dose: 0.5 mg Calcium Acetate (Phoslo) 1,334 mg PO WM [facility] Last Admin: 10/28/17 12:07 Dose: 1,334 mg Diphenhydramine HCl (Benadryl) 25 mg PO HS PRN PRN Reason: Insomnia Last Admin: 10/27/17 21:46 Dose: 25 mg Ergocalciferol (Drisdol 50,000 Intl Units Cap) 1 cap PO WED [facility] Last Admin: 10/25/17 15:12 Dose: Not Given Famotidine (Pepcid) 10 mg PO 2200 [facility] Last Admin: 10/27/17 21:44 Dose: 10 mg Fenofibrate (Tricor) 145 mg PO DAILY [facility] Last Admin: 10/28/17 09:52 Dose: 145 mg Hydralazine HCl (Apresoline) 25 mg PO BID [facility] Last Admin: 10/21/17 17:04 Dose: Not Given Micafungin Sodium 100 mg/ (Sodium Chloride) 100 mls @ 100 mls/hr IV DAILY [facility] PRN Reason: Protocol Stop: 11/09/17 12:16 Last Admin: 10/28/17 09:52 Dose: 100 mls/hr Insulin Human NPH (Humulin N) 20 units SC QPM [facility] Last Admin: 10/27/17 17:03 Dose: Not Given Insulin Human Regular (Humulin R High) 0 units SC ACHS [facility] PRN Reason: Protocol Last Admin: 10/28/17 12:07 Dose: 4 units Latanoprost (Xalatan Opht) 0 ml OU HS [facility] Last Admin: 10/27/17 21:46 Dose: 2.5 ml Levothyroxine Sodium (Synthroid) 25 mcg PO 0600 [facility] Last Admin: 10/27/17 06:15 Dose: 25 mcg Loratadine (Claritin) 10 mg PO HS [facility] Last Admin: 10/27/17 21:46 Dose: 10 mg Metoprolol Tartrate (Lopressor) 25 mg PO BID [facility] Last Admin: 10/28/17 09:53 Dose: 25 mg Montelukast Sodium (Singulair) 10 mg PO HS [facility] Last Admin: 10/27/17 21:44 Dose: 10 mg Multivitamins (Thera Tab) 1 tab PO DAILY [facility] Last Admin: 10/28/17 09:52 Dose: 1 tab Salmeterol Xinafoate /Fluticaso [Advair Hfa 230-21] 1 puff IH BID [facility] Last Admin: 10/28/17 10:09 Dose: Not Given Uzfui-3-Pyjr Ethyl Esters (Lovaza) 2 gm PO BID [facility] Last Admin: 10/28/17 09:52 Dose: 2 gm Ondansetron HCl (Zofran Inj) 4 mg IVP Q6H PRN PRN Reason: Nausea/Vomiting Last Admin: 10/23/17 06:48 Dose: 4 mg Pregabalin (Lyrica) 50 mg PO HS [facility] Last Admin: 10/27/17 21:45 Dose: 50 mg Sevelamer HCl (Renagel) 1,600 mg PO WM [facility] Last Admin: 10/28/17 12:08 Dose: 1,600 mg Sodium Chloride ([place] Nasal [place]) 0 ml NS Q2H PRN PRN Reason: Nasal congestion Tamsulosin HCl (Flomax) 0.4 mg PO HS [facility] Last Admin: 10/27/17 21:44 Dose: 0.4 mg Ticagrelor (Brilinta) 90 mg PO BID [facility] Last Admin: 10/19/17 17:13 Dose: 90 mg - Labs Labs: 10/28/17 06:00 10/28/17 06:00 PT 17.9 SECONDS (9.4-12.5) H 10/20/17 07:00 INR 1.54 10/20/17 07:00 APTT 80.4 Seconds (25.1-36.5) H 10/23/17 19:54 Attending/Attestation - Attestation I have fully participated in the care of the patient.: Yes I have reviewed all pertinent clinical information, including history, physical exam and plan: Yes
--- NOTE | 2017-10-28 17:00 | CP.PCM.PN ---
Subjective - Date & Time of Evaluation Date of Evaluation: 10/28/17 Time of Evaluation: 12:35 - Subjective Subjective: Comfortable in bed, eager for his surgery which is tentatively scheduled for Monday, no fevers, no nausea, no diarrhea. Objective - Vital Signs/Intake and Output Vital Signs (last 24 hours): Temp Pulse Resp BP Pulse Ox 97.5 F L 82 18 99/45 L 100 10/27/17 06:00 10/27/17 06:00 10/27/17 06:00 10/27/17 17:04 10/27/17 06:00 - Medications Medications: Current Medications Albuterol/Ipratropium (Duoneb 3 Mg/0.5 Mg (3 Ml) Ud) 3 ml IH [id number] PRN PRN Reason: Shortness of Breath Last Admin: 10/23/17 13:35 Dose: 3 ml Arformoterol Tartrate (Brovana) 15 mcg IH [id number] [facility] Last Admin: 10/27/17 07:13 Dose: 15 mcg Aspirin (Ecotrin) 81 mg PO DAILY [facility] Last Admin: 10/27/17 10:23 Dose: 81 mg Atorvastatin Calcium (Lipitor) 40 mg PO DIN [facility] Last Admin: 10/27/17 16:56 Dose: 40 mg Bacitracin (Bacitracin) 1 ea TOP BID [facility] Last Admin: 10/27/17 10:23 Dose: 1 ea Budesonide (Pulmicort Respules) 0.5 mg IH [id number] [facility] Last Admin: 10/27/17 07:13 Dose: 0.5 mg Calcium Acetate (Phoslo) 1,334 mg PO WM [facility] Last Admin: 10/27/17 16:58 Dose: 667 mg Diphenhydramine HCl (Benadryl) 25 mg PO HS PRN PRN Reason: Insomnia Last Admin: 10/26/17 21:31 Dose: 25 mg Ergocalciferol (Drisdol 50,000 Intl Units Cap) 1 cap PO WED [facility] Last Admin: 10/25/17 15:12 Dose: Not Given Famotidine (Pepcid) 10 mg PO 2200 [facility] Last Admin: 10/26/17 21:31 Dose: 10 mg Fenofibrate (Tricor) 145 mg PO DAILY [facility] Last Admin: 10/27/17 10:23 Dose: 145 mg Hydralazine HCl (Apresoline) 25 mg PO BID [facility] Last Admin: 10/21/17 17:04 Dose: Not Given Argatroban 250 mg/ Dextrose 252.5 mls @ 10.5 mls/hr IV .Q24H [facility]; 2 MCG/KG/MIN PRN Reason: Protocol Last Admin: 10/23/17 17:08 Dose: 10.5 mls/hr Micafungin Sodium 100 mg/ (Sodium Chloride) 100 mls @ 100 mls/hr IV DAILY [facility] PRN Reason: Protocol Stop: 11/09/17 12:16 Last Admin: 10/27/17 15:32 Dose: 100 mls/hr Insulin Human NPH (Humulin N) 20 units SC QPM [facility] Last Admin: 10/27/17 17:03 Dose: Not Given Insulin Human Regular (Humulin R High) 0 units SC ACHS [facility] PRN Reason: Protocol Last Admin: 10/27/17 16:04 Dose: Not Given Latanoprost (Xalatan Opht) 0 ml OU HS [facility] Last Admin: 10/26/17 21:36 Dose: 2.5 ml Levothyroxine Sodium (Synthroid) 25 mcg PO 0600 [facility] Last Admin: 10/27/17 06:15 Dose: 25 mcg Loratadine (Claritin) 10 mg PO HS [facility] Last Admin: 10/26/17 21:33 Dose: 10 mg Metoprolol Tartrate (Lopressor) 25 mg PO BID [facility] Last Admin: 10/27/17 17:04 Dose: Not Given Montelukast Sodium (Singulair) 10 mg PO HS [facility] Last Admin: 10/26/17 21:33 Dose: 10 mg Multivitamins (Thera Tab) 1 tab PO DAILY [facility] Last Admin: 10/27/17 10:23 Dose: 1 tab Salmeterol Xinafoate /Fluticaso [Advair Hfa 230-21] 1 puff IH BID [facility] Last Admin: 10/27/17 17:05 Dose: Not Given Rbflj-9-Fsvy Ethyl Esters (Lovaza) 2 gm PO BID [facility] Last Admin: 10/27/17 17:04 Dose: 1 gm Ondansetron HCl (Zofran Inj) 4 mg IVP Q6H PRN PRN Reason: Nausea/Vomiting Last Admin: 10/23/17 06:48 Dose: 4 mg Oxycodone/Acetaminophen (Percocet 5/325 Mg Tab) 1 tab PO BID PRN PRN Reason: pain Stop: 10/27/17 19:10 Last Admin: 10/27/17 07:08 Dose: 1 tab Oxycodone/Acetaminophen (Percocet 5/325 Mg Tab) 2 tab PO Q4H PRN PRN Reason: foot pain Stop: 10/27/17 19:13 Last Admin: 10/26/17 21:33 Dose: 2 tab Pregabalin (Lyrica) 50 mg PO HS [facility] Last Admin: 10/25/17 21:11 Dose: 50 mg Sevelamer HCl (Renagel) 1,600 mg PO WM [facility] Last Admin: 10/27/17 16:56 Dose: 800 mg Sodium Chloride ([place] Nasal [place]) 0 ml NS Q2H PRN PRN Reason: Nasal congestion Tamsulosin HCl (Flomax) 0.4 mg PO [facility] Last Admin: 10/26/17 21:34 Dose: 0.4 mg Ticagrelor (Brilinta) 90 mg PO BID [facility] Last Admin: 10/19/17 17:13 Dose: 90 mg - Labs Labs: 10/27/17 06:45 10/27/17 06:45 PT 17.9 SECONDS (9.4-12.5) H 10/20/17 07:00 INR 1.54 10/20/17 07:00 APTT 80.4 Seconds (25.1-36.5) H 10/23/17 19:54 - Constitutional Appears: Chronically Ill - Head Exam Head Exam: NORMAL INSPECTION - ENT Exam ENT Exam: Mucous Membranes Moist - Neck Exam Neck Exam: absent: Meningismus - Respiratory Exam Respiratory Exam: Decreased Breath Sounds - Cardiovascular Exam Cardiovascular Exam: +S1, +S2 - GI/Abdominal Exam GI & Abdominal Exam: Soft. 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 diff. associated diarrhea ESRD on HD DM obesity CAD S/P PCI retinopathy history of pancreatitis Plan continue Mycamine for C. glabrata in the blood day 10; reviewed Ophtho exam - no endophthalmitis - will need 2 weeks of antifungal therapy patient was on Argatroban drip for possible HIT, then for BKA once platelet count has improved will continue to follow clinically
[2017-10-28] MEDS: Oxycodone/Acetaminophen 5/325 mg Tab PO PRN (17:20)
[2017-10-28] MEDS: Insulin Human NPH 1 UNITS/0.01 ML SC SCH (17:21)
[2017-10-28] MEDS: Latanoprost 2.5 ml Opht Soln OU SCH (21:43)
--- NOTE | 2017-10-28 23:26 | CP.PCM.PN ---
Subjective - Date & Time of Evaluation Date of Evaluation: 10/28/17 Time of Evaluation: 10:00 - Subjective Subjective: FOLLOWUP NOTE SUBJECTIVE: He is comfortable in bed, in no acute distress. He has been afebrile. Has not required blood transfusion in the past few days. Platelet count is 56, it has improved from before. Serotonin assay is negative. Hb declined to 8.5 gm today. No dark colored stools. REVIEW OF SYSTEMS: As per HPI. Rest of 12-point review of systems reviewed negative. PHYSICAL EXAMINATION: GENERAL: Comfortable in bed, in no acute distress. VITAL SIGNS: reviewed. HEENT: Pallor positive. Facial puffiness present. NECK: No lymphadenopathy. CHEST: Air entry present and equal, bilateral. No added sound. CARDIOVASCULAR: S1, S2 normal. No murmur. No gallop. ABDOMEN: Soft, nontender. No hepatosplenomegaly. EXTREMITY: No edema. 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 No focal sensory motor deficits. SKIN: No petechiae. No rash. LABORATORY DATA: reviewed MEDICATIONS: Reviewed. ASSESSMENT: 1. Thrombocytopenia. 2. Anemia. 3. End-stage renal disease, on hemodialysis. 4. Rectal bleeding. 5. Gangrene of the right foot. PLAN: 1. Hemoglobin declined to 8.5 gm/dl. 2 units PRBC monday with dialysis. 2 units of pharesis platelets to be given monday prior to surgery. 2. Gangrene, right foot. Surgery planned for Monday. 3. No active GI bleed Azalea Morris MD Objective - Vital Signs/Intake and Output Vital Signs (last 24 hours): Temp Pulse Resp BP Pulse Ox 98.5 F 63 18 130/31 L 96 10/28/17 21:28 10/28/17 21:28 10/28/17 21:28 10/28/17 21:28 10/28/17 21:28 Intake and Output: 10/28/17 10/29/17 18:59 06:59 Intake Total 780 Balance 780 - Medications Medications: Current Medications Albuterol/Ipratropium (Duoneb 3 Mg/0.5 Mg (3 Ml) Ud) 3 ml IH [id number] PRN PRN Reason: Shortness of Breath Last Admin: 10/28/17 13:34 Dose: 3 ml Arformoterol Tartrate (Brovana) 15 mcg IH [id number] [facility] Last Admin: 10/28/17 19:22 Dose: 15 mcg Atorvastatin Calcium (Lipitor) 40 mg PO DIN [facility] Last Admin: 10/28/17 17:19 Dose: 40 mg Bacitracin (Bacitracin) 1 ea TOP BID [facility] Last Admin: 10/28/17 17:19 Dose: 1 ea Budesonide (Pulmicort Respules) 0.5 mg IH [id number] [facility] Last Admin: 10/28/17 19:23 Dose: 0.5 mg Calcium Acetate (Phoslo) 1,334 mg PO WM [facility] Last Admin: 10/28/17 17:20 Dose: 667 mg Diphenhydramine HCl (Benadryl) 25 mg PO HS PRN PRN Reason: Insomnia Last Admin: 10/27/17 21:46 Dose: 25 mg Ergocalciferol (Drisdol 50,000 Intl Units Cap) 1 cap PO WED [facility] Last Admin: 10/25/17 15:12 Dose: Not Given Famotidine (Pepcid) 10 mg PO 2200 [facility] Last Admin: 10/28/17 21:41 Dose: 10 mg Fenofibrate (Tricor) 145 mg PO DAILY [facility] Last Admin: 10/28/17 09:52 Dose: 145 mg Hydralazine HCl (Apresoline) 25 mg PO BID [facility] Last Admin: 10/21/17 17:04 Dose: Not Given Micafungin Sodium 100 mg/ (Sodium Chloride) 100 mls @ 100 mls/hr IV DAILY [facility] PRN Reason: Protocol Stop: 11/09/17 12:16 Last Admin: 10/28/17 09:52 Dose: 100 mls/hr Insulin Human NPH (Humulin N) 20 units SC QPM [facility] Last Admin: 10/28/17 17:21 Dose: Not Given Insulin Human Regular (Humulin R High) 0 units SC ACHS [facility] PRN Reason: Protocol Last Admin: 10/28/17 21:42 Dose: Not Given Latanoprost (Xalatan Opht) 0 ml OU HS [facility] Last Admin: 10/28/17 21:43 Dose: 2.5 ml Levothyroxine Sodium (Synthroid) 25 mcg PO 0600 [facility] Last Admin: 10/27/17 06:15 Dose: 25 mcg Loratadine (Claritin) 10 mg PO [facility] Last Admin: 10/28/17 21:41 Dose: 10 mg Metoprolol Tartrate (Lopressor) 25 mg PO BID [facility] Last Admin: 10/28/17 17:21 Dose: 25 mg Montelukast Sodium (Singulair) 10 mg PO [facility] Last Admin: 10/28/17 21:41 Dose: 10 mg Multivitamins (Thera Tab) 1 tab PO DAILY [facility] Last Admin: 10/28/17 09:52 Dose: 1 tab Salmeterol Xinafoate /Fluticaso [Advair Hfa 230-21] 1 puff IH BID [facility] Last Admin: 10/28/17 17:22 Dose: Not Given [id number]-4-Bgdf Ethyl Esters (Lovaza) 2 gm PO BID [facility] Last Admin: 10/28/17 17:20 Dose: 1 gm Ondansetron HCl (Zofran Inj) 4 mg IVP Q6H PRN PRN Reason: Nausea/Vomiting Last Admin: 10/23/17 06:48 Dose: 4 mg Oxycodone/Acetaminophen (Percocet 5/325 Mg Tab) 1 tab PO BID PRN PRN Reason: Pain, moderate (4-7) Stop: 10/31/17 17:12 Last Admin: 10/28/17 17:20 Dose: 1 tab Pregabalin (Lyrica) 50 mg PO [facility] Last Admin: 10/28/17 21:49 Dose: 50 mg Sevelamer HCl (Renagel) 1,600 mg PO [id number] Last Admin: 10/28/17 17:20 Dose: 800 mg Sodium Chloride ([place] Nasal [place]) 0 ml NS Q2H PRN PRN Reason: Nasal congestion Tamsulosin HCl (Flomax) 0.4 mg PO [facility] Last Admin: 10/28/17 21:42 Dose: 0.4 mg Ticagrelor (Brilinta) 90 mg PO BID [facility] Last Admin: 10/19/17 17:13 Dose: 90 mg - Labs Labs: 10/28/17 06:00 10/28/17 06:00 PT 17.9 SECONDS (9.4-12.5) H 10/20/17 07:00 INR 1.54 10/20/17 07:00 APTT 80.4 Seconds (25.1-36.5) H 10/23/17 19:54
[2017-10-29] MEDS: Levothyroxine 25 MCG TAB PO SCH (05:59)
[2017-10-29] MEDS: Oxycodone/Acetaminophen 5/325 mg Tab PO PRN ×2 (06:03→21:53)
[2017-10-29] MEDS: Albuterol-Ipratrop 3 mg / 0.5 (3 ml) UD IH PRN ×2 (07:26→13:14)
[2017-10-29] MEDS: Arformoterol 15 mcg/2 ml Inh Sol IH SCH ×2 (07:26→19:25)
[2017-10-29] MEDS: Budesonide 0.5 mg/2 ml Inhal Susp UD IH SCH ×2 (07:26→19:25)
[2017-10-29 07:39] LABS: INR 1.7; PARTIAL THROMBOPLASTIN TIME 32.6 Seconds (25.1-36.5); PROTHROMBIN TIME 19.8 SECONDS (9.4-12.5)
--- NOTE | 2017-10-29 07:49 | CP.PCM.PN ---
Subjective - Date & Time of Evaluation Date of Evaluation: 10/29/17 Time of Evaluation: 07:46 - Subjective Subjective: General Surgery Progress Note for Dr. Urrutia 52M seen and evaluated at bedside this morning. No acute events overnight. Patient resting comfortably in bed. No complaints at this time. He is tolerating his diet, will be made NPO after midnight. Denies f/c, n/v/d. Plan for OR tomorrow after hemodialysis. Objective - Vital Signs/Intake and Output Vital Signs (last 24 hours): Temp Pulse Resp BP Pulse Ox 98.5 F 63 18 130/31 L 96 10/28/17 21:28 10/29/17 07:25 10/28/17 21:28 10/28/17 21:28 10/28/17 21:28 Intake and Output: 10/29/17 10/29/17 06:59 18:59 Intake Total 780 Balance 780 - Medications Medications: Current Medications Albuterol/Ipratropium (Duoneb 3 Mg/0.5 Mg (3 Ml) Ud) 3 ml IH [id number] PRN PRN Reason: Shortness of Breath Last Admin: 10/29/17 07:26 Dose: 3 ml Arformoterol Tartrate (Brovana) 15 mcg IH [id number] [facility] Last Admin: 10/29/17 07:26 Dose: 15 mcg Atorvastatin Calcium (Lipitor) 40 mg PO DIN [facility] Last Admin: 10/28/17 17:19 Dose: 40 mg Bacitracin (Bacitracin) 1 ea TOP BID [facility] Last Admin: 10/28/17 17:19 Dose: 1 ea Budesonide (Pulmicort Respules) 0.5 mg IH [id number] [facility] Last Admin: 10/29/17 07:26 Dose: 0.5 mg Calcium Acetate (Phoslo) 1,334 mg PO WM [facility] Last Admin: 10/28/17 17:20 Dose: 667 mg Diphenhydramine HCl (Benadryl) 25 mg PO HS PRN PRN Reason: Insomnia Last Admin: 10/29/17 01:26 Dose: 25 mg Ergocalciferol (Drisdol 50,000 Intl Units Cap) 1 cap PO WED [facility] Last Admin: 10/25/17 15:12 Dose: Not Given Famotidine (Pepcid) 10 mg PO 2200 [facility] Last Admin: 10/28/17 21:41 Dose: 10 mg Fenofibrate (Tricor) 145 mg PO DAILY [facility] Last Admin: 10/28/17 09:52 Dose: 145 mg Hydralazine HCl (Apresoline) 25 mg PO BID [facility] Last Admin: 10/21/17 17:04 Dose: Not Given Micafungin Sodium 100 mg/ (Sodium Chloride) 100 mls @ 100 mls/hr IV DAILY [facility] PRN Reason: Protocol Stop: 11/09/17 12:16 Last Admin: 10/28/17 09:52 Dose: 100 mls/hr Insulin Human NPH (Humulin N) 20 units SC QPM [facility] Last Admin: 10/28/17 17:21 Dose: Not Given Insulin Human Regular (Humulin R High) 0 units SC ACHS [facility] PRN Reason: Protocol Last Admin: 10/28/17 21:42 Dose: Not Given Latanoprost (Xalatan Opht) 0 ml OU HS [facility] Last Admin: 10/28/17 21:43 Dose: 2.5 ml Levothyroxine Sodium (Synthroid) 25 mcg PO 0600 [facility] Last Admin: 10/29/17 05:59 Dose: 25 mcg Loratadine (Claritin) 10 mg PO HS [facility] Last Admin: 10/28/17 21:41 Dose: 10 mg Metoprolol Tartrate (Lopressor) 25 mg PO BID [facility] Last Admin: 10/28/17 17:21 Dose: 25 mg Montelukast Sodium (Singulair) 10 mg PO HS [facility] Last Admin: 10/28/17 21:41 Dose: 10 mg Multivitamins (Thera Tab) 1 tab PO DAILY [facility] Last Admin: 10/28/17 09:52 Dose: 1 tab Salmeterol Xinafoate /Fluticaso [Advair Hfa 230-21] 1 puff IH BID [facility] Last Admin: 10/28/17 17:22 Dose: Not Given Xpfha-1-Yzhn Ethyl Esters (Lovaza) 2 gm PO BID [facility] Last Admin: 10/28/17 17:20 Dose: 1 gm Ondansetron HCl (Zofran Inj) 4 mg IVP Q6H PRN PRN Reason: Nausea/Vomiting Last Admin: 10/23/17 06:48 Dose: 4 mg Oxycodone/Acetaminophen (Percocet 5/325 Mg Tab) 1 tab PO BID PRN PRN Reason: Pain, moderate (4-7) Stop: 10/31/17 17:12 Last Admin: 10/29/17 06:03 Dose: 1 tab Pregabalin (Lyrica) 50 mg PO HS [facility] Last Admin: 10/28/17 21:49 Dose: 50 mg Sevelamer HCl (Renagel) 1,600 mg PO WM [facility] Last Admin: 10/28/17 17:20 Dose: 800 mg Sodium Chloride ([place] Nasal [place]) 0 ml NS Q2H PRN PRN Reason: Nasal congestion Tamsulosin HCl (Flomax) 0.4 mg PO HS [facility] Last Admin: 10/28/17 21:42 Dose: 0.4 mg Ticagrelor (Brilinta) 90 mg PO BID [facility] Last Admin: 10/19/17 17:13 Dose: 90 mg - Labs Labs: 10/28/17 06:00 10/28/17 06:00 PT 19.8 SECONDS (9.4-12.5) H 10/29/17 06:30 INR 1.70 10/29/17 06:30 APTT 32.6 Seconds (25.1-36.5) 10/29/17 06:30 - Constitutional Appears: Well, Non-toxic, No Acute Distress - Head Exam Head Exam: ATRAUMATIC, NORMAL INSPECTION, NORMOCEPHALIC - Respiratory Exam Respiratory Exam: Clear to Ausculation Bilateral, NORMAL BREATHING PATTERN - Cardiovascular Exam Cardiovascular Exam: REGULAR RHYTHM, +S1, +S2. absent: Murmur - GI/Abdominal Exam GI & Abdominal Exam: Soft, Normal Bowel Sounds. absent: Tenderness - Neurological Exam Neurological Exam: Alert, Awake, Oriented x3 Assessment and Plan - Assessment and Plan (Free Text) Assessment: 52 M with ESRD, PAD, and thrombocytopenia secondary to LUCIL[place] requiring Right BKA Plan: OR planned for Monday after patient receives dialysis Pre-op work up and consent NPO after midnight AM labs Will place 2 units of Platelets on hold Monday for OR on Monday As per Dr. Morris, patient is medically optimized for R BKA on 10/30 Agatroban held Brillinta has been held since 10/20 Patient still receiving ASA daily Medical management as per primary Further recommendations as per Dr. Renan Worthy PGY1
[2017-10-29 07:55] LABS: ALB/GLOB RATIO 0.7 (1.1-1.8); ALBUMIN 2.8 g/dL (3.0-4.8)
[2017-10-29 08:12] LABS: BASO # 0.04 K/mm3 (0.0-2.0); BASO % 0.7 % (0.0-3.0); EOS # 0.1 (0.0-0.7); GRAN # 3.38 (1.4-6.5); GRAN % 56.1 % (50.0-68.0); HEMOGLOBIN 9.2 g/dL (14.0-18.0); LYMPH # 1.9 (1.2-3.4); LYMPH % 30.8 % (22.0-35.0); MEAN CELL VOLUME 91.1 fl (80.0-105.0); MEAN CORPUSCULAR HEMOGLOBIN 29.2 pg (25.0-35.0); MEAN CORPUSCULAR HGB CONC 32.1 g/dl (31.0-37.0); MEAN PLATELET VOLUME 11.4 fl (7.0-11.0); MONO # 0.6 (0.1-0.6); MONO % 10.4 % (1.0-6.0); RBC 3.15 10^6/uL (3.5-6.1); RED CELL DISTRIBUTION WIDTH 16.8 % (11.5-14.5)
[2017-10-29] MEDS: Insulin Reg-HIGH-Coverage SC SCH ×5 (08:40→21:58)
--- NOTE | 2017-10-29 09:29 | CP.PCM.PN ---
<Inés Daniel - Last Filed: 10/29/17 09:27> Subjective - Date & Time of Evaluation Date of Evaluation: 10/29/17 Time of Evaluation: 09:27 - Subjective Subjective: Podiatry Progress Note for Dr. Quevedo 52M seen at bedside for right foot TMA stump ulceration. Patient is AAO x 3. Patient complains of minimal pain to the ulceration site. Denies any further pedal complaints at this time. Denies any recent N/V/F/CP/SOB. 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 is scheduled for 10/30/17 Objective - Vital Signs/Intake and Output Vital Signs (last 24 hours): Temp Pulse Resp BP Pulse Ox 97.4 F L 58 L 18 103/50 L 100 10/29/17 08:04 10/29/17 08:04 10/29/17 08:04 10/29/17 08:04 10/29/17 08:04 Intake and Output: 10/29/17 10/29/17 06:59 18:59 Intake Total 780 Balance 780 - Medications Medications: Current Medications Albuterol/Ipratropium (Duoneb 3 Mg/0.5 Mg (3 Ml) Ud) 3 ml IH [id number] PRN PRN Reason: Shortness of Breath Last Admin: 10/29/17 07:26 Dose: 3 ml Arformoterol Tartrate (Brovana) 15 mcg IH [id number] [facility] Last Admin: 10/29/17 07:26 Dose: 15 mcg Atorvastatin Calcium (Lipitor) 40 mg PO DIN [facility] Last Admin: 10/28/17 17:19 Dose: 40 mg Bacitracin (Bacitracin) 1 ea TOP BID [facility] Last Admin: 10/28/17 17:19 Dose: 1 ea Budesonide (Pulmicort Respules) 0.5 mg IH [id number] [facility] Last Admin: 10/29/17 07:26 Dose: 0.5 mg Calcium Acetate (Phoslo) 1,334 mg PO WM [facility] Last Admin: 10/29/17 08:40 Dose: 667 mg Diphenhydramine HCl (Benadryl) 25 mg PO HS PRN PRN Reason: Insomnia Last Admin: 10/29/17 01:26 Dose: 25 mg Ergocalciferol (Drisdol 50,000 Intl Units Cap) 1 cap PO WED [facility] Last Admin: 10/25/17 15:12 Dose: Not Given Famotidine (Pepcid) 10 mg PO 2200 [facility] Last Admin: 10/28/17 21:41 Dose: 10 mg Fenofibrate (Tricor) 145 mg PO DAILY [facility] Last Admin: 10/28/17 09:52 Dose: 145 mg Hydralazine HCl (Apresoline) 25 mg PO BID [facility] Last Admin: 10/21/17 17:04 Dose: Not Given Micafungin Sodium 100 mg/ (Sodium Chloride) 100 mls @ 100 mls/hr IV DAILY [facility] PRN Reason: Protocol Stop: 11/09/17 12:16 Last Admin: 10/28/17 09:52 Dose: 100 mls/hr Insulin Human NPH (Humulin N) 20 units SC QPM [facility] Last Admin: 10/28/17 17:21 Dose: Not Given Insulin Human Regular (Humulin R High) 0 units SC ACHS [facility] PRN Reason: Protocol Last Admin: 10/29/17 08:43 Dose: Not Given Latanoprost (Xalatan Opht) 0 ml OU HS [facility] Last Admin: 10/28/17 21:43 Dose: 2.5 ml Levothyroxine Sodium (Synthroid) 25 mcg PO 0600 [facility] Last Admin: 10/29/17 05:59 Dose: 25 mcg Loratadine (Claritin) 10 mg PO HS [facility] Last Admin: 10/28/17 21:41 Dose: 10 mg Metoprolol Tartrate (Lopressor) 25 mg PO BID [facility] Last Admin: 10/28/17 17:21 Dose: 25 mg Montelukast Sodium (Singulair) 10 mg PO HS [facility] Last Admin: 10/28/17 21:41 Dose: 10 mg Multivitamins (Thera Tab) 1 tab PO DAILY [facility] Last Admin: 10/28/17 09:52 Dose: 1 tab Salmeterol Xinafoate /Fluticaso [Advair Hfa 230-21] 1 puff IH BID [facility] Last Admin: 10/28/17 17:22 Dose: Not Given [id number]-[id number] Ethyl Esters (Lovaza) 2 gm PO BID [facility] Last Admin: 10/28/17 17:20 Dose: 1 gm Ondansetron HCl (Zofran Inj) 4 mg IVP Q6H PRN PRN Reason: Nausea/Vomiting Last Admin: 10/23/17 06:48 Dose: 4 mg Oxycodone/Acetaminophen (Percocet 5/325 Mg Tab) 1 tab PO BID PRN PRN Reason: Pain, moderate (4-7) Stop: 10/31/17 17:12 Last Admin: 10/29/17 06:03 Dose: 1 tab Pregabalin (Lyrica) 50 mg PO HS [facility] Last Admin: 10/28/17 21:49 Dose: 50 mg Sevelamer HCl (Renagel) 1,600 mg PO WM [facility] Last Admin: 10/29/17 08:40 Dose: 800 mg Sodium Chloride ([place] Nasal [place]) 0 ml NS Q2H PRN PRN Reason: Nasal congestion Tamsulosin HCl (Flomax) 0.4 mg PO [facility] Last Admin: 10/28/17 21:42 Dose: 0.4 mg Ticagrelor (Brilinta) 90 mg PO BID [facility] Last Admin: 10/19/17 17:13 Dose: 90 mg - Labs Labs: 10/29/17 06:30 10/29/17 07:00 PT 19.8 SECONDS (9.4-12.5) H 10/29/17 06:30 INR 1.70 10/29/17 06:30 APTT 32.6 Seconds (25.1-36.5) 10/29/17 06:30 - Constitutional Appears: Well, Non-toxic, No Acute Distress - Head Exam Head Exam: ATRAUMATIC, NORMOCEPHALIC - Extremities Exam Additional comments: RLE focused exam: Vasc: DP/PT pulses faintly palpable b/l. CFT to dorsal foot < 3 seconds. Minimal edema noted to TMA site Derm: distal TMA site flap is coapted and reapproximated with sutures and fitz. No unraveling of sutures or backing out of fitz noted. No dehiscence appreciated to the flap. Entire flap is necrosed at this time. There is an open large ulceration measuring approximately 10 cm x 7 cm x 2 cm on the plantar medial aspect of right foot, wound base mixture of fibrotic and granular base. Serous drainage is increased over last dressing change with minimal bleeding noted as well. No tracking, tunneling or undermining. No probe to bone. Ulceration site does not appear to be worsening at this time Neuro: Epicritic and protective sensation grossly absent - Neurological Exam Neurological Exam: Alert, Awake, Oriented x3 - Psychiatric Exam Psychiatric exam: Normal Affect, Normal Mood Assessment and Plan - Assessment and Plan (Free Text) Assessment: 52 y/o male seen at bedside for right foot TMA stump ulceration Plan: Patient seen and evaluated Plan discussed with Dr. Quevedo Chart and labs were reviewed Afebrile, absent leukocytosis Wound dressed with betadine, Adaptic, ABD, DSD No plan for surgical intervention from podiatry standpoint Patient to go to OR Monday10/30/17 for R BKA Podiatry will continue to follow while patient in house <Adria Quevedo - Last Filed: 10/30/17 08:03> Objective - Vital Signs/Intake and Output Vital Signs (last 24 hours): Temp Pulse Resp BP Pulse Ox 97.6 F 87 18 120/67 100 10/30/17 06:00 10/30/17 06:00 10/30/17 06:00 10/30/17 06:00 10/30/17 06:00 Intake and Output: 10/30/17 10/30/17 06:59 18:59 Intake Total 360 Balance 360 - Medications Medications: Current Medications Albuterol/Ipratropium (Duoneb 3 Mg/0.5 Mg (3 Ml) Ud) 3 ml IH [id number] PRN PRN Reason: Shortness of Breath Last Admin: 10/30/17 07:16 Dose: 3 ml Arformoterol Tartrate (Brovana) 15 mcg IH [id number] [facility] Last Admin: 10/30/17 07:15 Dose: 15 mcg Atorvastatin Calcium (Lipitor) 40 mg PO DIN [facility] Last Admin: 10/29/17 17:15 Dose: 40 mg Bacitracin (Bacitracin) 1 ea TOP BID [facility] Last Admin: 10/29/17 17:16 Dose: Not Given Budesonide (Pulmicort Respules) 0.5 mg IH [id number] [facility] Last Admin: 10/30/17 07:16 Dose: 0.5 mg Calcium Acetate (Phoslo) 1,334 mg PO WM [facility] Last Admin: 10/29/17 17:16 Dose: 667 mg Diphenhydramine HCl (Benadryl) 25 mg PO HS PRN PRN Reason: Insomnia Last Admin: 10/29/17 01:26 Dose: 25 mg Ergocalciferol (Drisdol 50,000 Intl Units Cap) 1 cap PO WED [facility] Last Admin: 10/25/17 15:12 Dose: Not Given Famotidine (Pepcid) 10 mg PO 2200 [facility] Last Admin: 10/29/17 21:54 Dose: 10 mg Fenofibrate (Tricor) 145 mg PO DAILY [facility] Last Admin: 10/29/17 10:23 Dose: 145 mg Hydralazine HCl (Apresoline) 25 mg PO BID [facility] Last Admin: 10/21/17 17:04 Dose: Not Given Micafungin Sodium 100 mg/ (Sodium Chloride) 100 mls @ 100 mls/hr IV DAILY [facility] PRN Reason: Protocol Stop: 11/09/17 12:16 Last Admin: 10/29/17 10:23 Dose: 100 mls/hr Dextrose/Sodium Chloride (Dextrose 5%/0.45% Ns 1000 Ml) 1,000 mls @ 60 mls/hr IV .[id number] [facility] Insulin Human NPH (Humulin N) 20 units SC QPM [facility] Last Admin: 10/29/17 17:16 Dose: Not Given Insulin Human Regular (Humulin R High) 0 units SC ACHS [facility] PRN Reason: Protocol Last Admin: 10/29/17 21:58 Dose: Not Given Latanoprost (Xalatan Opht) 0 ml OU HS [facility] Last Admin: 10/29/17 21:55 Dose: 2.5 ml Levothyroxine Sodium (Synthroid) 25 mcg PO 0600 [facility] Last Admin: 10/30/17 06:31 Dose: 25 mcg Loratadine (Claritin) 10 mg PO HS [facility] Last Admin: 10/29/17 21:54 Dose: 10 mg Metoprolol Tartrate (Lopressor) 25 mg PO BID [facility] Last Admin: 10/29/17 17:15 Dose: 25 mg Montelukast Sodium (Singulair) 10 mg PO HS [facility] Last Admin: 10/29/17 21:55 Dose: 10 mg Multivitamins (Thera Tab) 1 tab PO DAILY [facility] Last Admin: 10/29/17 10:23 Dose: 1 tab Salmeterol Xinafoate /Fluticaso [Advair Hfa 230-21] 1 puff IH BID [facility] Last Admin: 10/29/17 17:17 Dose: Not Given Oynmp-2-Smkd Ethyl Esters (Lovaza) 2 gm PO BID [facility] Last Admin: 10/29/17 17:16 Dose: 1 gm Ondansetron HCl (Zofran Inj) 4 mg IVP Q6H PRN PRN Reason: Nausea/Vomiting Last Admin: 10/23/17 06:48 Dose: 4 mg Oxycodone/Acetaminophen (Percocet 5/325 Mg Tab) 1 tab PO BID PRN PRN Reason: Pain, moderate (4-7) Stop: 10/31/17 17:12 Last Admin: 10/29/17 21:53 Dose: 1 tab Pregabalin (Lyrica) 50 mg PO HS [facility] Last Admin: 10/29/17 21:53 Dose: 50 mg Sevelamer HCl (Renagel) 1,600 mg PO WM [facility] Last Admin: 10/29/17 17:16 Dose: 800 mg Sodium Chloride ([place] Nasal [place]) 0 ml NS Q2H PRN PRN Reason: Nasal congestion Tamsulosin HCl (Flomax) 0.4 mg PO [facility] Last Admin: 10/29/17 21:53 Dose: 0.4 mg Ticagrelor (Brilinta) 90 mg PO BID [facility] Last Admin: 10/19/17 17:13 Dose: 90 mg - Labs Labs: 10/29/17 06:30 10/29/17 07:00 PT 19.8 SECONDS (9.4-12.5) H 10/29/17 06:30 INR 1.70 10/29/17 06:30 APTT 32.6 Seconds (25.1-36.5) 10/29/17 06:30 Attending/Attestation - Attestation I have personally seen and examined this patient.: Yes I have fully participated in the care of the patient.: Yes I have reviewed all pertinent clinical information, including history, physical exam and plan: Yes
[2017-10-29] MEDS: Micafungin 100 MG in Sodium Chloride 0.9% 100 ML IV SCH (10:23)
[2017-10-29] MEDS: Multivitamin Therapeutic Tab PO SCH (10:23)
[2017-10-29] MEDS: Omega-3-Acid Ethyl Esters 1 GM Cap PO SCH ×2 (10:23→17:16)
[2017-10-29] MEDS: Bacitracin 500 Units/gm Oint Foilpak UD TOP SCH ×2 (10:24→17:16)
[2017-10-29] MEDS: SALMETEROL XINAFOATE IH SCH ×2 (10:56→17:17)
[2017-10-29] MEDS: FLUTICASO IH SCH ×2 (10:56→17:17)
--- NOTE | 2017-10-29 17:04 | CP.PCM.PN ---
Subjective - Date & Time of Evaluation Date of Evaluation: 10/29/17 Time of Evaluation: 12:15 - Subjective Subjective: No fevers, not in distress, comfortable. Objective - Vital Signs/Intake and Output Vital Signs (last 24 hours): Temp Pulse Resp BP Pulse Ox 98.8 F 89 18 148/73 99 10/27/17 22:00 10/28/17 09:53 10/27/17 22:00 10/28/17 09:53 10/27/17 22:00 Intake and Output: 10/28/17 10/28/17 06:59 18:59 Intake Total 960 Output Total 0 Balance 960 - Medications Medications: Current Medications Albuterol/Ipratropium (Duoneb 3 Mg/0.5 Mg (3 Ml) Ud) 3 ml IH [id number] PRN PRN Reason: Shortness of Breath Last Admin: 10/28/17 13:34 Dose: 3 ml Arformoterol Tartrate (Brovana) 15 mcg IH [id number] [facility] Last Admin: 10/28/17 07:04 Dose: 15 mcg Atorvastatin Calcium (Lipitor) 40 mg PO DIN [facility] Last Admin: 10/27/17 16:56 Dose: 40 mg Bacitracin (Bacitracin) 1 ea TOP BID [facility] Last Admin: 10/28/17 09:52 Dose: 1 ea Budesonide (Pulmicort Respules) 0.5 mg IH [id number] [facility] Last Admin: 10/28/17 07:04 Dose: 0.5 mg Calcium Acetate (Phoslo) 1,334 mg PO WM [facility] Last Admin: 10/28/17 12:07 Dose: 1,334 mg Diphenhydramine HCl (Benadryl) 25 mg PO HS PRN PRN Reason: Insomnia Last Admin: 10/27/17 21:46 Dose: 25 mg Ergocalciferol (Drisdol 50,000 Intl Units Cap) 1 cap PO WED [facility] Last Admin: 10/25/17 15:12 Dose: Not Given Famotidine (Pepcid) 10 mg PO 2200 [facility] Last Admin: 10/27/17 21:44 Dose: 10 mg Fenofibrate (Tricor) 145 mg PO DAILY [facility] Last Admin: 10/28/17 09:52 Dose: 145 mg Hydralazine HCl (Apresoline) 25 mg PO BID [facility] Last Admin: 10/21/17 17:04 Dose: Not Given Micafungin Sodium 100 mg/ (Sodium Chloride) 100 mls @ 100 mls/hr IV DAILY [facility] PRN Reason: Protocol Stop: 11/09/17 12:16 Last Admin: 10/28/17 09:52 Dose: 100 mls/hr Insulin Human NPH (Humulin N) 20 units SC QPM [facility] Last Admin: 10/27/17 17:03 Dose: Not Given Insulin Human Regular (Humulin R High) 0 units SC ACHS [facility] PRN Reason: Protocol Last Admin: 10/28/17 12:07 Dose: 4 units Latanoprost (Xalatan Opht) 0 ml OU HS [facility] Last Admin: 10/27/17 21:46 Dose: 2.5 ml Levothyroxine Sodium (Synthroid) 25 mcg PO 0600 [facility] Last Admin: 10/27/17 06:15 Dose: 25 mcg Loratadine (Claritin) 10 mg PO HS [facility] Last Admin: 10/27/17 21:46 Dose: 10 mg Metoprolol Tartrate (Lopressor) 25 mg PO BID [facility] Last Admin: 10/28/17 09:53 Dose: 25 mg Montelukast Sodium (Singulair) 10 mg PO [facility] Last Admin: 10/27/17 21:44 Dose: 10 mg Multivitamins (Thera Tab) 1 tab PO DAILY [facility] Last Admin: 10/28/17 09:52 Dose: 1 tab Salmeterol Xinafoate /Fluticaso [Advair Hfa 230-21] 1 puff IH BID [facility] Last Admin: 10/28/17 10:09 Dose: Not Given [id number] Ethyl Esters (Lovaza) 2 gm PO BID [facility] Last Admin: 10/28/17 09:52 Dose: 2 gm Ondansetron HCl (Zofran Inj) 4 mg IVP Q6H PRN PRN Reason: Nausea/Vomiting Last Admin: 10/23/17 06:48 Dose: 4 mg Pregabalin (Lyrica) 50 mg PO HS [facility] Last Admin: 10/27/17 21:45 Dose: 50 mg Sevelamer HCl (Renagel) 1,600 mg PO WM [facility] Last Admin: 10/28/17 12:08 Dose: 1,600 mg Sodium Chloride ([place]berry Nasal [place]) 0 ml NS Q2H PRN PRN Reason: Nasal congestion Tamsulosin HCl (Flomax) 0.4 mg PO HS [facility] Last Admin: 10/27/17 21:44 Dose: 0.4 mg Ticagrelor (Brilinta) 90 mg PO BID [facility] Last Admin: 10/19/17 17:13 Dose: 90 mg - Labs Labs: 10/28/17 06:00 10/28/17 06:00 PT 17.9 SECONDS (9.4-12.5) H 10/20/17 07:00 INR 1.54 10/20/17 07:00 APTT 80.4 Seconds (25.1-36.5) H 10/23/17 19:54 - Constitutional Appears: Non-toxic, No Acute Distress, Chronically Ill - Head Exam Head Exam: NORMAL INSPECTION - Respiratory Exam Respiratory Exam: Decreased Breath Sounds - Cardiovascular Exam Cardiovascular Exam: +S1, +S2 - GI/Abdominal Exam GI & Abdominal Exam: Soft. 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 diff. associated diarrhea ESRD on HD DM obesity CAD S/P PCI retinopathy history of pancreatitis Plan continue Mycamine for C. glabrata in the blood day 11; reviewed Ophtho exam - no endophthalmitis - will need 2 weeks of antifungal therapy patient was on Argatroban drip for possible HIT, then for BKA once platelet count has improved will continue to follow clinically
[2017-10-29] MEDS: Insulin Human NPH 1 UNITS/0.01 ML SC SCH (17:16)
[2017-10-29] MEDS: Latanoprost 2.5 ml Opht Soln OU SCH (21:55)
--- NOTE | 2017-10-29 22:55 | PN ---
Copied To: Azalea Morris MD Attending MD: Azalea Morris MD DATE: 10/29/2017 SUBJECTIVE: He is comfortable in bed, in no acute distress. No melena. No bright red blood per rectum. Hemoglobin has improved today. Platelet count improved. He also has Guerline fungemia, on antifungal treatment. Right foot gangrene, surgery planned for 10/30/2017. REVIEW OF SYSTEMS: As per HPI. Rest of 12-point review of systems reviewed negative. PHYSICAL EXAMINATION: GENERAL: Comfortable in bed in no acute distress. VITAL SIGNS: Temperature 98.7, heart rate 63 per minute, respiratory rate 18 per minute, blood pressure 130/60, pulse ox is 96% on room air. HEENT: Facial puffiness present. Pallor present. NECK: No lymphadenopathy. CHEST: Air entry present and equal bilateral. No added sound. CARDIOVASCULAR: S1 and S2 normal. No murmur. No gallop. ABDOMEN: Soft, nontender. No hepatosplenomegaly. EXTREMITIES: No edema. [employer]: Alert, oriented x3. No focal, sensory or motor deficits. SKIN: No petechiae. No rash. LABORATORY DATA: Reviewed. MEDICATIONS: Reviewed. ASSESSMENT AND PLAN: 1. Thrombocytopenia. 2. Anemia. 3. Gangrene, right foot. 4. Fungemia. PLAN: Surgery planned for tomorrow. Two units of blood transfusion with dialysis tomorrow, 2 units of platelet transfusion tomorrow prior to surgery. He will undergo hemodialysis tomorrow prior to the surgery. Currently on antifungal medications IV as per ID, continue that. Blood pressure control and current medications. We will continue all listed medications. Azalea Morris MD
[2017-10-30] MEDS ORDERED: Lactated Ringer's 1,000 ML IV SCH (00:01)
[2017-10-30] MEDS ORDERED: Dextrose 5%/0.45% NS 1,000 ML IV SCH ×2 (00:01)
[2017-10-30] MEDS: Levothyroxine 25 MCG TAB PO SCH (06:31)
[2017-10-30] MEDS: Arformoterol 15 mcg/2 ml Inh Sol IH SCH ×2 (07:15→19:29)
[2017-10-30] MEDS: Albuterol-Ipratrop 3 mg / 0.5 (3 ml) UD IH PRN (07:16)
[2017-10-30] MEDS: Budesonide 0.5 mg/2 ml Inhal Susp UD IH SCH ×2 (07:16→19:29)
[2017-10-30] MEDS: Insulin Reg-HIGH-Coverage SC SCH ×3 (08:00→16:30)
--- NOTE | 2017-10-30 08:30 | PN ---
Copied To: Jarred Escalera MD Attending MD: Jarred Escalera MD. DATE: 10/27/2017 PULMONARY PROGRESS NOTE REFERRING PHYSICIAN: Gallo Potter MD. SUBJECTIVE: The patient was seen and examined on dialysis bed, feels okay. Night was unremarkable. Sleepy, arousable. No headache, no rhinitis. No cough. No nausea, no vomiting, no diarrhea. No more rectal bleed. Right foot still having pain, required pain medication. PHYSICAL EXAMINATION: GENERAL: In no acute distress. VITAL SIGNS: Temperature is 98, heart rate is 82, respiratory rate is 18, blood pressure 140/57, pulse ox of 100% on nasal cannula. HEENT: Moist mucous membrane. Crowded airway. Mallampati score is 4. NECK: Supple. No JVD. LUNGS: Have fair airflow with few rhonchi. HEART: S1 and S2. ABDOMEN: Soft, nontender. No organomegaly. EXTREMITIES: Does have a dressing on the right foot. NEUROLOGIC: Sleepy, arousable. Follows simple command. MEDICATIONS: He is on hydralazine 25 mg twice a day, argatroban is still on hold, bacitracin ointment to affected area, Benadryl 25 mg at bedtime p.r.n., Brilinta 90 mg twice a day, Brovana inhaled twice a day, Claritin 10 mg daily, vitamin D 50,000 units weekly, DuoNeb every 6 hours p.r.n., Ecotrin 81 mg daily, Flomax 0.4 mg at bedtime, insulin coverage, Lipitor 40 mg daily, Lovaza 2 mg twice a day, Lyrica 50 mg daily, micafungin is 100 mg daily, Pepcid 10 mg daily, Percocet 1 tablet twice a day p.r.n., PhosLo with meals, Pulmicort inhaled twice a day, Renagel with meals, Singulair 10 mg daily, Synthroid 25 mcg daily, multivitamins daily, TriCor 145 mg daily, and Zofran p.r.n. basis. LABORATORY DATA: Shows hemoglobin 9.5, hematocrit 29.6, WBC 6.6, platelet count is 56. Sodium 135, potassium 4.1, chloride 100, bicarbonate 25, BUN 29, creatinine 5.7, glucose 129, calcium is 8.3. AST 56, ALT 17, alkaline phosphatase is 84. Albumin is 2.9. IMPRESSION AND PLAN: Severe peripheral vascular disease, ended up with nonhealing foot ulcer requiring partial amputation, presently has ischemia of the incision site requiring below-knee amputation, unfortunately ended up with the complication regarding thrombocytopenia, gastrointestinal bleed. Platelets are slowly improving. Heparin-induced thrombocytopenia antibody is still pending. Other issue of chronic obstructive lung disease, obstructive sleep apnea syndrome, renal failure, dialysis dependent, diabetes, peripheral neuropathy. Pulmonary point of view, doing alright. Continue bronchodilator. Keep head at 45 degrees. Sleep apnea precaution. Avoid sedation. If sedated, needs close cardiopulmonary monitoring. Gastric prophylaxis. Being followed by Hematology/Oncology. Thank you and we will follow with you. Jarred Escalera MD
--- NOTE | 2017-10-30 08:52 | PN ---
Copied To: Jarred Escalera MD Attending MD: Jarred Escalera MD DATE: 10/29/2017 PULMONARY PROGRESS NOTE REFERRING PHYSICIAN: Gallo Potter MD. SUBJECTIVE: The patient is lying in the bed, head at 45 degrees. Night was unremarkable. No headache. No rhinitis. No nausea. No vomiting. No diarrhea. Has some right foot pain. Dressing was changed this morning. OBJECTIVE: GENERAL: In no acute distress. VITAL SIGNS: Temperature is 98, heart rate is 58, respiratory rate is 20, blood pressure 103/50, pulse ox 100% on nasal cannula. HEENT: Moist mucous membranes. No ulcer or thrush noted. NECK: Supple. No JVD. LUNGS: Have a fair airflow and rhonchi. HEART: S1 and S2. ABDOMEN: Soft, nontender, no organomegaly. EXTREMITY: Has a right foot dressing. NEUROLOGICAL: Awake, alert, follows simple command. MEDICATIONS: He is on hydralazine 25 mg twice a day, bacitracin ointment at affected area, Benadryl 25 mg at bedtime p.r.n., Brilinta 90 mg twice a day, Brovana inhaled twice a day, Claritin 10 mg daily, vitamin D 50,000 units weekly, DuoNeb every 6 hours p.r.n., Flomax 0.4 mg daily, insulin coverage, Lipitor 40 mg daily, metoprolol tartrate 25 mg twice a day, Lovaza 2 mg twice a day, Lyrica 50 mg at bedtime, micafungin 100 mg daily, Pepcid 10 mg daily, Percocet 5/325 one tab every 12 hours p.r.n., PhosLo is with the meals, Pulmicort inhaled twice a day, Renagel with the meals, Singulair 10 mg daily, Synthroid 25 mcg daily, multivitamins daily, Tricor 145 mg daily, Zofran p.r.n. basis. LABORATORY DATA: Shows hemoglobin 9.2, hematocrit 28.7, WBC 6, platelet is 73. INR 1.70, PTT 73. Sodium 138, potassium 3.9, chloride 100, bicarbonate 30, BUN is 25, creatinine 5.9, glucose 180, calcium is 8, phosphorus 2.8, AST 53, ALT 23, alk phos is 80, albumin is 2.8. IMPRESSION AND PLAN: Severe peripheral vascular disease requiring partial amputation of the right foot, end up with a nonhealing incision site, scheduled for right below-knee amputation, end up with fungemia being treated. Had a thrombocytopenia, heparin related mostly. Anticoagulation was stopped. Heparin-induced thrombocytopenia antibody is still pending. Other issues are cardiomyopathy, pulmonary hypertension, chronic obstructive lung disease, sleep apnea syndrome, diabetes, renal failure, dialysis dependent. Pulmonary point of view, he is doing well. Continue bronchodilator, noncompliant with the continuous positive airway pressure. If sedated, needs close cardiopulmonary monitoring while sedated. Being followed by Hematology and Cardiology. Thank you and we will follow with you. Jarred Escalera MD
--- NOTE | 2017-10-30 08:55 | PN ---
Copied To: Jarred Escalera MD Attending MD: Jarred Escalera MD DATE: 10/28/2017 PULMONARY PROGRESS NOTE REFERRING PHYSICIAN: Dr. Potter. SUBJECTIVE: He is lying in the bed, head at 45 degrees. Night was unremarkable. Mother is at bedside. No headache, no rhinitis. No chest pain. No nausea, no vomiting, no diarrhea. Has a right foot in dressing. OBJECTIVE: GENERAL: In no acute distress. VITAL SIGNS: Temperature is 98, heart rate 89, respiratory rate is 18, blood pressure 148/73, pulse ox 99% on 4 liters nasal cannula. HEENT: Moist mucous membrane. Crowded airway. NECK: Supple. No JVD. LUNGS: Have fair airflow with rhonchi. HEART: S1 and S2. ABDOMEN: Soft, nontender, no organomegaly. EXTREMITIES: There is no edema of the left leg. Right foot has a dressing. NEUROLOGIC: Awake and follows simple command. MEDICATIONS: He is on hydralazine 25 mg twice a day p.r.n., bacitracin ointment to affected area twice a day, Benadryl 25 mg at bedtime p.r.n., Brilinta 90 mg twice a day, Brovana inhaled twice a day, Claritin 10 mg at bedtime, vitamin D 50,000 units weekly, DuoNeb every 6 hours p.r.n., Flomax 0.4 mg at bedtime, insulin coverage, Lipitor 40 mg daily, metoprolol tartrate 25 mg twice a day, Lovaza 2 g twice a day, Lyrica 50 mg at bedtime, Micafungin 100 mg daily, Pepcid 10 mg daily, Percocet 5/325 1 tablet every 12 hours p.r.n., PhosLo with the meals, Pulmicort inhaled twice a day, Renagel 1.6 g p.o. with the meals, Singulair 10 mg daily, Synthroid 25 mcg daily, multivitamins daily, Tricor 145 mg daily, Zofran 4 mg every 6 hours p.r.n. LABORATORY DATA: Shows hemoglobin 8.3, hematocrit 26.0, WBC 5.0, platelet is 54. Sodium 138, potassium 3.7, chloride 99, bicarbonate is 32, BUN is 21, creatinine 4.2, glucose is 235, calcium is 7.8, phosphorus is 2.3, AST 49, ALT 21, alk phos is 73. Albumin is 2.5. IMPRESSION: Severe peripheral vascular disease with nonhealing ulcer requiring partial amputation of the right foot and up with nonhealing incision site. Admitted for right below knee amputation, with complication that end up with fungemia, needed antifungal medications, at the same time has also thrombocytopenia, heparin was stopped. Heparin-induced thrombocytopenia antibody is still pending. Gastrointestinal bleed requiring colonoscopy. Pulmonary point of view, stable. Has a sleep apnea syndrome, noncompliant with the CPAP, if sedated need a close cardiopulmonary monitoring while sedated. Gastric prophylaxis. Being followed by Hematology. Thank you and we will follow with you. Jarred Escalera MD
[2017-10-30 09:43] LABS: BASO # 0.03 K/mm3 (0.0-2.0); BASO % 0.5 % (0.0-3.0); EOS # 0.2 (0.0-0.7); EOS % 2.9 % (1.5-5.0); GRAN # 3.95 (1.4-6.5); GRAN % 62.5 % (50.0-68.0); HEMOGLOBIN 8.7 g/dL (14.0-18.0); LYMPH # 1.6 (1.2-3.4); LYMPH % 24.7 % (22.0-35.0); MEAN CELL VOLUME 90.4 fl (80.0-105.0); MEAN CORPUSCULAR HEMOGLOBIN 29.8 pg (25.0-35.0); MONO # 0.6 (0.1-0.6); MONO % 9.4 % (1.0-6.0); RBC 2.92 10^6/uL (3.5-6.1); RED CELL DISTRIBUTION WIDTH 17.4 % (11.5-14.5); WHITE BLOOD COUNT 6.3 10^3/ul (4.5-11.0)
[2017-10-30 09:57] LABS: ALB/GLOB RATIO 0.6 (1.1-1.8); ALBUMIN 2.7 g/dL (3.0-4.8); CALCIUM 8.1 mg/dL (8.4-10.5)
[2017-10-30] MEDS: SALMETEROL XINAFOATE IH SCH ×2 (10:00→18:06)
[2017-10-30] MEDS: Omega-3-Acid Ethyl Esters 1 GM Cap PO SCH ×2 (10:00→18:30)
[2017-10-30] MEDS: FLUTICASO IH SCH ×2 (10:00→18:06)
[2017-10-30] MEDS: Bacitracin 500 Units/gm Oint Foilpak UD TOP SCH ×2 (10:00→17:56)
--- NOTE | 2017-10-30 10:17 | CP.PCM.PN ---
<Asia Aguila - Last Filed: 10/30/17 16:35> Subjective - Date & Time of Evaluation Date of Evaluation: 10/30/17 Time of Evaluation: 07:00 - Subjective Subjective: PGY-[address] Potter Pt seen and examined. No acute event overnight. Pt states that he is emotional ready for today's surgery. No acute complaint Objective - Vital Signs/Intake and Output Vital Signs (last 24 hours): Temp Pulse Resp BP Pulse Ox 97.6 F 87 18 120/67 100 10/30/17 06:00 10/30/17 06:00 10/30/17 06:00 10/30/17 06:00 10/30/17 06:00 Intake and Output: 10/30/17 10/30/17 06:59 18:59 Intake Total 360 Balance 360 - Medications Medications: Current Medications Albuterol/Ipratropium (Duoneb 3 Mg/0.5 Mg (3 Ml) Ud) 3 ml IH [id number] PRN PRN Reason: Shortness of Breath Last Admin: 10/30/17 07:16 Dose: 3 ml Arformoterol Tartrate (Brovana) 15 mcg IH [id number] [facility] Last Admin: 10/30/17 07:15 Dose: 15 mcg Atorvastatin Calcium (Lipitor) 40 mg PO DIN [facility] Last Admin: 10/29/17 17:15 Dose: 40 mg Bacitracin (Bacitracin) 1 ea TOP BID [facility] Last Admin: 10/29/17 17:16 Dose: Not Given Budesonide (Pulmicort Respules) 0.5 mg IH [id number] [facility] Last Admin: 10/30/17 07:16 Dose: 0.5 mg Calcium Acetate (Phoslo) 1,334 mg PO WM [facility] Last Admin: 10/30/17 08:00 Dose: Not Given Diphenhydramine HCl (Benadryl) 25 mg PO HS PRN PRN Reason: Insomnia Last Admin: 10/29/17 01:26 Dose: 25 mg Ergocalciferol (Drisdol 50,000 Intl Units Cap) 1 cap PO WED [facility] Last Admin: 10/25/17 15:12 Dose: Not Given Famotidine (Pepcid) 10 mg PO 2200 [facility] Last Admin: 10/29/17 21:54 Dose: 10 mg Fenofibrate (Tricor) 145 mg PO DAILY [facility] Last Admin: 10/29/17 10:23 Dose: 145 mg Hydralazine HCl (Apresoline) 25 mg PO BID [facility] Last Admin: 10/21/17 17:04 Dose: Not Given Micafungin Sodium 100 mg/ (Sodium Chloride) 100 mls @ 100 mls/hr IV DAILY [facility] PRN Reason: Protocol Stop: 11/09/17 12:16 Last Admin: 10/29/17 10:23 Dose: 100 mls/hr Dextrose/Sodium Chloride (Dextrose 5%/0.45% Ns 1000 Ml) 1,000 mls @ 60 mls/hr IV .[id number] [facility] Insulin Human NPH (Humulin N) 20 units SC QPM [facility] Last Admin: 10/29/17 17:16 Dose: Not Given Insulin Human Regular (Humulin R High) 0 units SC ACHS [facility] PRN Reason: Protocol Last Admin: 10/30/17 08:00 Dose: Not Given Latanoprost (Xalatan Opht) 0 ml OU HS [facility] Last Admin: 10/29/17 21:55 Dose: 2.5 ml Levothyroxine Sodium (Synthroid) 25 mcg PO 0600 [facility] Last Admin: 10/30/17 06:31 Dose: 25 mcg Loratadine (Claritin) 10 mg PO HS [facility] Last Admin: 10/29/17 21:54 Dose: 10 mg Metoprolol Tartrate (Lopressor) 25 mg PO BID [facility] Last Admin: 10/29/17 17:15 Dose: 25 mg Montelukast Sodium (Singulair) 10 mg PO HS [facility] Last Admin: 10/29/17 21:55 Dose: 10 mg Multivitamins (Thera Tab) 1 tab PO DAILY [facility] Last Admin: 10/29/17 10:23 Dose: 1 tab Salmeterol Xinafoate /Fluticaso [Advair Hfa 230-21] 1 puff IH BID [facility] Last Admin: 10/29/17 17:17 Dose: Not Given Axxns-0-Thhe Ethyl Esters (Lovaza) 2 gm PO BID [facility] Last Admin: 10/29/17 17:16 Dose: 1 gm Ondansetron HCl (Zofran Inj) 4 mg IVP Q6H PRN PRN Reason: Nausea/Vomiting Last Admin: 08/06/18 06:48 Dose: 4 mg Oxycodone/Acetaminophen (Percocet 5/325 Mg Tab) 1 tab PO BID PRN PRN Reason: Pain, moderate (4-7) Stop: 10/31/17 17:12 Last Admin: 10/29/17 21:53 Dose: 1 tab Pregabalin (Lyrica) 50 mg PO HS [facility] Last Admin: 10/29/17 21:53 Dose: 50 mg Sevelamer HCl (Renagel) 1,600 mg PO [facility] Last Admin: 10/30/17 08:00 Dose: Not Given Sodium Chloride ([place] Nasal [place]) 0 ml NS Q2H PRN PRN Reason: Nasal congestion Tamsulosin HCl (Flomax) 0.4 mg PO [facility] Last Admin: 10/29/17 21:53 Dose: 0.4 mg Ticagrelor (Brilinta) 90 mg PO BID [facility] Last Admin: 10/19/17 17:13 Dose: 90 mg - Labs Labs: 10/30/17 09:30 10/30/17 09:30 PT 19.8 SECONDS (9.4-12.5) H 10/29/17 06:30 INR 1.70 10/29/17 06:30 APTT 32.6 Seconds (25.1-36.5) 10/29/17 06:30 - Constitutional Appears: No Acute Distress - Head Exam Head Exam: ATRAUMATIC, NORMAL INSPECTION, NORMOCEPHALIC - Eye Exam Eye Exam: EOMI, Normal appearance, PERRL. absent: Scleral icterus Pupil Exam: NORMAL ACCOMODATION - ENT Exam ENT Exam: Mucous Membranes Moist - Neck Exam Additional comments: supple - Respiratory Exam Respiratory Exam: Clear to Ausculation Bilateral. absent: Rales, Rhonchi, Wheezes - Cardiovascular Exam Cardiovascular Exam: REGULAR RHYTHM, +S1, +S2. absent: Murmur - GI/Abdominal Exam GI & Abdominal Exam: Soft, Normal Bowel Sounds. absent: Tenderness - Extremities Exam Extremities Exam: absent: Calf Tenderness, Pedal Edema, Tenderness Additional comments: R dressing with mild serous strike through - Back Exam Back Exam: absent: CVA tenderness (L), CVA tenderness (R) - Neurological Exam Neurological Exam: Alert, Awake, Oriented x3 - Psychiatric Exam Psychiatric exam: Normal Affect, Normal Mood - Skin Skin Exam: Dry, Warm Assessment and Plan - Assessment and Plan (Free Text) Plan: Mr Berger, 52 M recently s/p transmetatarsal amputation of the right foot () due to wet gangrene to the right foot and bone exposure. He is on Dual antiplatelet for recent cardiac stent in May. His RLE stump is not healing, possibly because he is a vasculopath and he weight bear despite warning. Due to the non-healing wound due to poor perfusion, he was scheduled for R BKA. The surgery was delayed twice because he developed fungemia on zyvox, merem, micafungin. 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 He was transferred to ICU for agatroban but developed GI bleed. Since agatroban is held, no longer need ICU, and he transferred to telemetry. Now off ASA, brilinta, heparin SC, agatroban. 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 Stop protonix, merem, zyvox to r/o other medication etiology Fungemia (10/16), Had ruled out thrombi @ pacemaker lead. Had ruled out Opthalmitis. Anemia at 7.3 (baseline 8-9), Anemia of chronic disease and due to ESRD, asymptomatic, s/p 3u PRBC. Goal to reach Hb 10 for surgery. GI bleed, due to thrombocytopenia and agatroban? -- resolved CAD s/p 2 YORDY in LAD (06/13/17) on dual-antiplatelet, CHF, pacemaker (metronic) HTN/PVD RENATA, cannot tolerate CPAP; COPD; severe pulmonary HTN DM_2__, peripheral neuropathy Hx CVA with L residual weakness ESRD MWF due to HTN/DM, with Anemia, Hyperphosphatemia, Secondary Hyperparathyroidism Hypothyroidism Moxifloxacin and PCN allergy P: For non-healing wound R stump, surgery today after dialysis. Percocet PRN; Lyrica HS Cardiology cleared. Pending ID and heme clearance for surgery. Platelet in 50s. Hold ASA and Brilinta for surgery. High uriel-operative cardiac risk. When to restart ASA/Brilinta? Need Heme/surgery input. ___ GI bleed seem resolved. Hb stable at 9. EGD showed supermucosal tear and colonoscopy showed stool, no active bleed. tolerated diet For HIT, Argatroban gtt held. heparin ab POSITIVE. Serotonin release assy negative. For fungemia, mycafungin, day __12___. Stopped Merem & Linezolid (x 6 day) for possible cause of low platelet; patient may need up to 4 weeks of antifungal therapy. MIDLINE TOMORROW Repeat blood culture (10/19) negative. Echo showed EF 55. RVSP 49. Aortic cusp calcified cannot r/o veg. No sig changes to echo 1 month ago. LASHAWN no vegetation in pacemaker lead. pthalmologist has already ruled out endopthalmitis. For anemia, sp 5u RBC. goal Hb 10 for surgery. For thrombocytopenia, s/p 2 plt, continue to trend plt For CAD, Continue metoprolol, lipitor, fenofibrate, lovaza. ASA/Brilinta on hold. For HTN, hydralazine on hold for nomotensive For DM2, hold glipizide, reduce humulin N to 20u per last hospital insulin requirement, lispro-low sliding scale For chronic ESRD, HD MWF. Continue Phoslo, Vit D2, multivitamin, sevelamer For COPD/RENATA, HOB 45, Duoneb PRN, brovana, budesonide, montelikast. Cannot tolerate CPAP For Glucoma, bimatoprost For insomnia, benadryl HS prn For hypothyroidism, synthroid 25 Flomax for Bph Prophylaxis: high risk of GI stress ulcer due to bleed/fungemia. consider Use low dose pepcid, pending GI rec. 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 Off protonix due to low plt. Off anticoagulant due to GI bleed Discharge planning: Rehab. Need midline for total of 4 weeks antifungal, will get it after surgery. Need to decide when to be back on antiplatelet for recent YORDY after BKA, given equivocal HIT study Consult: eRnan Figueroa, Dre, Rich, Jensen Escalera, Anabelle, Cyndee Access: L AV fistula. Peripheral IV s/r/d/w Dr. Potter <Gallo Potter S - Last Filed: 10/30/17 21:55> Objective - Vital Signs/Intake and Output Vital Signs (last 24 hours): Temp Pulse Resp BP Pulse Ox 99.1 F 89 18 148/62 100 10/30/17 21:49 10/30/17 21:49 10/30/17 21:49 10/30/17 21:49 10/30/17 21:49 - Medications Medications: Current Medications Albuterol/Ipratropium (Duoneb 3 Mg/0.5 Mg (3 Ml) Ud) 3 ml IH [id number] PRN PRN Reason: Shortness of Breath Last Admin: 10/30/17 07:16 Dose: 3 ml Arformoterol Tartrate (Brovana) 15 mcg IH [id number] [facility] Last Admin: 10/30/17 19:29 Dose: Not Given Atorvastatin Calcium (Lipitor) 40 mg PO DIN [facility] Last Admin: 10/30/17 18:28 Dose: 40 mg Bacitracin (Bacitracin) 1 ea TOP BID [facility] Last Admin: 10/30/17 17:56 Dose: Not Given Budesonide (Pulmicort Respules) 0.5 mg IH [id number] [facility] Last Admin: 10/30/17 19:29 Dose: Not Given Calcium Acetate (Phoslo) 1,334 mg PO WM [facility] Last Admin: 10/30/17 18:29 Dose: 1,334 mg Diphenhydramine HCl (Benadryl) 25 mg PO HS PRN PRN Reason: Insomnia Last Admin: 10/29/17 01:26 Dose: 25 mg Ergocalciferol (Drisdol 50,000 Intl Units Cap) 1 cap PO WED [facility] Last Admin: 10/25/17 15:12 Dose: Not Given Famotidine (Pepcid) 10 mg PO 2200 [facility] Last Admin: 10/29/17 21:54 Dose: 10 mg Fenofibrate (Tricor) 145 mg PO DAILY [facility] Last Admin: 10/30/17 18:29 Dose: 145 mg Hydralazine HCl (Apresoline) 25 mg PO BID [facility] Last Admin: 10/30/17 18:05 Dose: Not Given Hydromorphone HCl (Dilaudid) 0.5 mg IVP Q4H PRN PRN Reason: Pain, severe (8-10) Stop: 11/01/17 17:13 Last Admin: 10/30/17 20:00 Dose: 0.5 mg Micafungin Sodium 100 mg/ (Sodium Chloride) 100 mls @ 100 mls/hr IV DAILY [facility] PRN Reason: Protocol Stop: 11/09/17 12:16 Last Admin: 10/30/17 18:28 Dose: 100 mls/hr Dextrose/Sodium Chloride (Dextrose 5%/0.45% Ns 1000 Ml) 1,000 mls @ 60 mls/hr IV .[id number] [facility] Insulin Human NPH (Humulin N) 20 units SC QPM [facility] Last Admin: 10/30/17 18:03 Dose: Not Given Insulin Human Regular (Humulin R High) 0 units SC ACHS [facility] PRN Reason: Protocol Last Admin: 10/30/17 16:30 Dose: Not Given Latanoprost (Xalatan Opht) 0 ml OU HS [facility] Last Admin: 10/29/17 21:55 Dose: 2.5 ml Levothyroxine Sodium (Synthroid) 25 mcg PO 0600 [facility] Last Admin: 10/30/17 06:31 Dose: 25 mcg Loratadine (Claritin) 10 mg PO HS [facility] Last Admin: 10/29/17 21:54 Dose: 10 mg Metoprolol Tartrate (Lopressor) 25 mg PO BID [facility] Last Admin: 10/30/17 18:06 Dose: Not Given Montelukast Sodium (Singulair) 10 mg PO HS [facility] Last Admin: 10/29/17 21:55 Dose: 10 mg Multivitamins (Thera Tab) 1 tab PO DAILY [facility] Last Admin: 10/30/17 18:31 Dose: 1 tab Salmeterol Xinafoate /Fluticaso [Advair Hfa 230-21] 1 puff IH BID [facility] Last Admin: 10/30/17 18:06 Dose: Not Given Xkyfo-9-Aied Ethyl Esters (Lovaza) 2 gm PO BID [facility] Last Admin: 10/30/17 18:30 Dose: 2 gm Ondansetron HCl (Zofran Inj) 4 mg IVP Q6H PRN PRN Reason: Nausea/Vomiting Last Admin: 10/23/17 06:48 Dose: 4 mg Oxycodone/Acetaminophen (Percocet 5/325 Mg Tab) 1 tab PO BID PRN PRN Reason: Pain, moderate (4-7) Stop: 10/31/17 17:12 Last Admin: 10/29/17 21:53 Dose: 1 tab Pregabalin (Lyrica) 50 mg PO HS [facility] Last Admin: 10/29/17 21:53 Dose: 50 mg Sevelamer HCl (Renagel) 1,600 mg PO WM [facility] Last Admin: 10/30/17 18:29 Dose: 1,600 mg Sodium Chloride ([place] Nasal [place]) 0 ml NS Q2H PRN PRN Reason: Nasal congestion Tamsulosin HCl (Flomax) 0.4 mg PO [facility] Last Admin: 10/29/17 21:53 Dose: 0.4 mg Ticagrelor (Brilinta) 90 mg PO BID [facility] Last Admin: 10/19/17 17:13 Dose: 90 mg - Labs Labs: 10/30/17 09:30 10/30/17 09:30 PT 19.8 SECONDS (9.4-12.5) H 10/29/17 06:30 INR 1.70 10/29/17 06:30 APTT 32.6 Seconds (25.1-36.5) 10/29/17 06:30 Assessment and Plan - Assessment and Plan (Free Text) Plan: Pt seen and examined. I have reviewed the note of the medical affairs director and agree with it. I have discussed the assessment and plan with the resident. I have reviewed the patient's labs and medications. Pt given platelets. He is going for surgery today. Spoke to Dr Urrutia. He is optimized for surgery.
[2017-10-30] MEDS ORDERED: Propofol 10 mg/ml Inj (20 ML) ONE (13:57)
[2017-10-30] MEDS ORDERED: Etomidate 20 mg/10ml Inj IV ONE (13:57)
[2017-10-30] MEDS ORDERED: Rocuronium 10 mg/ml (5 ml) ONE (13:58)
--- NOTE | 2017-10-30 14:07 | CP.PCM.PCO ---
Physician Communication Note - Physician Communication Note Physician Communication Note: Pt taken to OR during rounds no acute events as per nsg will see tomorrow
--- NOTE | 2017-10-30 14:56 | PN ---
Copied To: Jarred Goodwin MD Attending MD: Jarred Goodwin MD DATE: 10/30/2017 LOCATION: The patient in room 571, bed 2. REASON FOR CONSULTATION: Follow up his coronary artery disease, cardiac evaluation, right BKA, renal failure, diabetes mellitus, PAD, gangrene of the stump of the previous amputation of the foot, transmetatarsal amputation. SUBJECTIVE: The patient is lying flat in bed in Dialysis Unit, having dialysis. Denies chest pain, shortness of breath, palpitation. PHYSICAL EXAMINATION: VITAL SIGNS: Blood pressure 120/67, respirations 18, pulse 87, temperature 97.6. HEENT: Head is normocephalic. Eyes: Pupils normal. Conjunctivae slightly pale. NECK: JVP low. Carotids equal. THORAX: AP diameter normal. LUNGS: Clear. CARDIOVASCULAR: S1 and S2. ABDOMEN: Soft. No tenderness. No organomegaly. EXTREMITIES: No clubbing. No cyanosis. Legs, the patient has gangrene of the stump of the transmetatarsal amputation of the right foot. ASSESSMENT: Fungemia, the patient has infection in the stump of the transmetatarsal amputation; sepsis; coronary artery disease; history of stent insertion, recent stent was in May 2017; history of pacemaker insertion; thrombocytopenia; end-stage renal failure, on dialysis; diabetes mellitus; diabetic retinopathy; diabetic nephropathy; diabetic neuropathy. PLAN: The patient is going for amputation below knee today. As mentioned previously on notes, the patient is high risk for surgery, but there is no absolute contraindication not to do surgery. The source of fungemia is the gangrenous part of the stump of the transmetatarsal amputation of right foot. The patient is being followed by Infectious Diseases also. The patient has no anginal symptoms. We will continue present therapy. The patient is high risk because of related comorbidities as mentioned in our diagnoses. Continue dialysis as per Nephrology. We will follow up. Jarred Goodwin MD
[2017-10-30] MEDS ORDERED: Bupivacaine Liposomal Inj 20 ml ONE (15:52)
[2017-10-30] MEDS ORDERED: Sodium Chloride 0.9% 40 ML IV ONE (15:53)
[2017-10-30] MEDS ORDERED: Glycopyrrolate 0.2 mg/ml (2ml vial) ONE (16:18)
[2017-10-30] MEDS ORDERED: HYDROmorphone 0.5 mg/0.5 ml ISec IVP PRN (16:42)
--- NOTE | 2017-10-30 16:42 | PCM.SURG1 ---
Surgeon's Initial Post Op Note - Surgeon's Notes Surgeon: Dr. Urrutia Stem Shaper: Roberto PGY3, Alejandro PGY2 Type of Anesthesia: General Endo, Local Anesthesia Administered By: Dr. Barbosa Pre-Operative Diagnosis: Gangrene of Right lower extremity, PAD Operative Findings: Gangrene of Right lower extremity, PAD Post-Operative Diagnosis: Gangrene of Right lower extremity, PAD Operation Performed: Right lower extremity below the knee amputation Specimen/Specimens Removed: Right lower leg Estimated Blood Loss: EBL {In ML}: 50 Blood Products Given: N/A Drains Used: Dandy Post-Op Condition: Good Date of Surgery/Procedure: 10/30/17 Time of Surgery/Procedure: 16:42
[2017-10-30] MEDS ORDERED: HYDROmorphone 0.5 mg/0.5 ml ISec ONE (16:57)
[2017-10-30] MEDS: Insulin Human NPH 1 UNITS/0.01 ML SC SCH (18:03)
[2017-10-30] MEDS: Micafungin 100 MG in Sodium Chloride 0.9% 100 ML IV SCH (18:28)
[2017-10-30] MEDS: Multivitamin Therapeutic Tab PO SCH (18:31)
[2017-10-30] MEDS: HYDROmorphone 0.5 mg/0.5 ml ISec IVP PRN ×2 (20:00→23:51)
--- NOTE | 2017-10-30 20:09 | CP.PCM.PN ---
Subjective - Date & Time of Evaluation Date of Evaluation: 10/30/17 Time of Evaluation: 13:00 - Subjective Subjective: For surgery today, no fevers, not in distress. Objective - Vital Signs/Intake and Output Vital Signs (last 24 hours): Temp Pulse Resp BP Pulse Ox 99.2 F 101 H 18 149/92 H 100 10/29/17 15:06 10/29/17 15:06 10/29/17 15:06 10/29/17 15:06 10/29/17 15:06 Intake and Output: 10/29/17 10/29/17 06:59 18:59 Intake Total 780 Balance 780 - Medications Medications: Current Medications Albuterol/Ipratropium (Duoneb 3 Mg/0.5 Mg (3 Ml) Ud) 3 ml IH [id number] PRN PRN Reason: Shortness of Breath Last Admin: 10/29/17 13:14 Dose: 3 ml Arformoterol Tartrate (Brovana) 15 mcg IH [id number] [facility] Last Admin: 10/29/17 07:26 Dose: 15 mcg Atorvastatin Calcium (Lipitor) 40 mg PO DIN [facility] Last Admin: 10/28/17 17:19 Dose: 40 mg Bacitracin (Bacitracin) 1 ea TOP BID [facility] Last Admin: 10/29/17 10:24 Dose: Not Given Budesonide (Pulmicort Respules) 0.5 mg IH [id number] [facility] Last Admin: 10/29/17 07:26 Dose: 0.5 mg Calcium Acetate (Phoslo) 1,334 mg PO WM [facility] Last Admin: 10/29/17 12:23 Dose: 667 mg Diphenhydramine HCl (Benadryl) 25 mg PO HS PRN PRN Reason: Insomnia Last Admin: 10/29/17 01:26 Dose: 25 mg Ergocalciferol (Drisdol 50,000 Intl Units Cap) 1 cap PO WED [facility] Last Admin: 10/25/17 15:12 Dose: Not Given Famotidine (Pepcid) 10 mg PO 2200 [facility] Last Admin: 10/28/17 21:41 Dose: 10 mg Fenofibrate (Tricor) 145 mg PO DAILY [facility] Last Admin: 10/29/17 10:23 Dose: 145 mg Hydralazine HCl (Apresoline) 25 mg PO BID [facility] Last Admin: 10/21/17 17:04 Dose: Not Given Micafungin Sodium 100 mg/ (Sodium Chloride) 100 mls @ 100 mls/hr IV DAILY [facility] PRN Reason: Protocol Stop: 11/09/17 12:16 Last Admin: 10/29/17 10:23 Dose: 100 mls/hr Insulin Human NPH (Humulin N) 20 units SC QPM [facility] Last Admin: 10/28/17 17:21 Dose: Not Given Insulin Human Regular (Humulin R High) 0 units SC ACHS [facility] PRN Reason: Protocol Last Admin: 10/29/17 12:23 Dose: 7 units Latanoprost (Xalatan Opht) 0 ml OU HS [facility] Last Admin: 10/28/17 21:43 Dose: 2.5 ml Levothyroxine Sodium (Synthroid) 25 mcg PO 0600 [facility] Last Admin: 10/29/17 05:59 Dose: 25 mcg Loratadine (Claritin) 10 mg PO HS [facility] Last Admin: 10/28/17 21:41 Dose: 10 mg Metoprolol Tartrate (Lopressor) 25 mg PO BID [facility] Last Admin: 10/29/17 10:24 Dose: 25 mg Montelukast Sodium (Singulair) 10 mg PO [facility] Last Admin: 10/28/17 21:41 Dose: 10 mg Multivitamins (Thera Tab) 1 tab PO DAILY [facility] Last Admin: 10/29/17 10:23 Dose: 1 tab Salmeterol Xinafoate /Fluticaso [Advair Hfa 230-21] 1 puff IH BID [facility] Last Admin: 10/29/17 10:56 Dose: Not Given Mnyua-1-Nvcx Ethyl Esters (Lovaza) 2 gm PO BID [facility] Last Admin: 10/29/17 10:23 Dose: 1 gm Ondansetron HCl (Zofran Inj) 4 mg IVP Q6H PRN PRN Reason: Nausea/Vomiting Last Admin: 10/23/17 06:48 Dose: 4 mg Oxycodone/Acetaminophen (Percocet 5/325 Mg Tab) 1 tab PO BID PRN PRN Reason: Pain, moderate (4-7) Stop: 10/31/17 17:12 Last Admin: 10/29/17 06:03 Dose: 1 tab Pregabalin (Lyrica) 50 mg PO [facility] Last Admin: 10/28/17 21:49 Dose: 50 mg Sevelamer HCl (Renagel) 1,600 mg PO WM [facility] Last Admin: 10/29/17 12:23 Dose: 800 mg Sodium Chloride ([place] Nasal [place]) 0 ml NS Q2H PRN PRN Reason: Nasal congestion Tamsulosin HCl (Flomax) 0.4 mg PO HS [facility] Last Admin: 10/28/17 21:42 Dose: 0.4 mg Ticagrelor (Brilinta) 90 mg PO BID [facility] Last Admin: 10/19/17 17:13 Dose: 90 mg - Labs Labs: 10/29/17 06:30 10/29/17 07:00 PT 19.8 SECONDS (9.4-12.5) H 10/29/17 06:30 INR 1.70 10/29/17 06:30 APTT 32.6 Seconds (25.1-36.5) 10/29/17 06:30 - Constitutional Appears: Chronically Ill - Head Exam Head Exam: NORMAL INSPECTION - ENT Exam ENT Exam: Mucous Membranes Moist - Neck Exam Neck Exam: absent: Meningismus - Respiratory Exam Respiratory Exam: Decreased Breath Sounds - Cardiovascular Exam Cardiovascular Exam: +S1, +S2 - GI/Abdominal Exam GI & Abdominal Exam: Soft. 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 diff. associated diarrhea ESRD on HD DM obesity CAD S/P PCI retinopathy history of pancreatitis Plan continue Mycamine for C. glabrata in the blood day 12; reviewed Ophtho exam - no endophthalmitis - will need 2 weeks of antifungal therapy for BKA today will continue to follow clinically
--- NOTE | 2017-10-30 20:22 | PN ---
Copied To: Jarred Escalera MD Attending MD: Jarred Escalera MD DATE: 10/30/2017 PULMONARY PROGRESS NOTE REFERRING PHYSICIAN: Gallo Potter MD SUBJECTIVE: He is seen and examined in the recovering room. Awake and alert, status post right BKA. Has a dressing on the right lower extremity. Mother is at bedside. Nursing staff at bedside. Feels okay. Denying any headache. No rhinitis. No cough. No nausea. No vomiting. No diarrhea. OBJECTIVE: GENERAL: In no acute distress. VITAL SIGNS: Temperature is 98, heart rate is 83, respiratory rate is 16, blood pressure 141/36, pulse ox 98% on 3 liters nasal cannula. HEENT: Moist mucous membranes. Crowded airway. Mallampati score is 4. NECK: Supple. No JVD. LUNGS: Have fair airflow with rhonchi. HEART: S1 and S2. ABDOMEN: Soft, nontender. No organomegaly. EXTREMITIES: There is no edema on the left leg. Right BKA with dressing on it. NEUROLOGICAL: Awake and alert. Follows simple command. MEDICATIONS: He is on hydralazine 25 mg twice a day, bacitracin ointment twice a day, Benadryl 25 mg at bedtime p.r.n., Brilinta 90 mg twice day, Brovana inhaled twice a day, Claritin 10 mg daily, Dilaudid 0.5 mg every 4 hours p.r.n., vitamin D 50,000 units weekly, DuoNeb every 6 hours p.r.n., Flomax 0.4 mg daily, Lipitor 40 mg daily, metoprolol tartrate 25 mg twice a day, Lovaza 2 g twice a day, Lyrica 50 mg at bedtime, micafungin 100 mg daily, nasal saline 2 hours p.r.n., Pepcid 10 mg daily, Percocet 5/325 one tablet twice a day p.r.n., Pulmicort inhaled twice a day, Renagel with the meals, Singulair 10 mg daily, Synthroid 25 mcg daily, multivitamins daily, TriCor 145 mg daily, Zofran 4 mg every 6 hours. LABORATORY DATA: Shows hemoglobin 8.7, hematocrit 26.4, WBC 6.3, platelet count is 93. Sodium 137, potassium 3.9, chloride 100, bicarbonate 28, BUN 35, creatinine 6.9, glucose 134, calcium is 8.1, phosphorus 3, AST 57, ALT 30, alkaline phosphatase is 90. Albumin is 2.7. IMPRESSION AND PLAN: Diabetes with end-organ damage with peripheral vascular disease, right lower extremity nonhealing ulcers requiring below-knee amputation, which is done today. Other issues are cardiomyopathy, pulmonary hypertension, chronic lung disease, sleep apnea syndrome, renal failure, dialysis dependent, thrombocytopenia, resolving fungemia. Spoke to the patient's mother at bedside. All the questions answered. Spoke to nursing staff. Has a sleep apnea syndrome, but noncompliant with the CPAP. Keep head elevated at 45 degrees. Continue bronchodilator. Careful with sedation. Gastric prophylaxis. Follow up platelets. Being followed by Cardiology, Hematology, Nephrology. Thank you and we will follow with you. Jarred Escalera MD : 10/30/2017 19:42:30
[2017-10-31] MEDS: Insulin Reg-HIGH-Coverage SC SCH ×4 (05:05→17:23)
[2017-10-31] MEDS: Latanoprost 2.5 ml Opht Soln OU SCH ×2 (05:06→21:39)
[2017-10-31] MEDS: HYDROmorphone 0.5 mg/0.5 ml ISec IVP PRN ×4 (05:14→20:07)
[2017-10-31 06:31] LABS: BASO # 0.03 K/mm3 (0.0-2.0); BASO % 0.4 % (0.0-3.0); EOS # 0.2 (0.0-0.7); EOS % 2.5 % (1.5-5.0); GRAN # 5.73 (1.4-6.5); GRAN % 71.4 % (50.0-68.0); HEMOGLOBIN 8.3 g/dL (14.0-18.0); LYMPH # 1.3 (1.2-3.4); LYMPH % 15.8 % (22.0-35.0); MEAN CELL VOLUME 92.1 fl (80.0-105.0); MEAN CORPUSCULAR HEMOGLOBIN 29.9 pg (25.0-35.0); MEAN CORPUSCULAR HGB CONC 32.4 g/dl (31.0-37.0); MEAN PLATELET VOLUME 10.4 fl (7.0-11.0); MONO # 0.8 (0.1-0.6); MONO % 9.9 % (1.0-6.0); RBC 2.78 10^6/uL (3.5-6.1)
[2017-10-31 07:07] LABS: ALB/GLOB RATIO 0.7 (1.1-1.8); ALBUMIN 2.7 g/dL (3.0-4.8); CALCIUM 7.8 mg/dL (8.4-10.5)
--- NOTE | 2017-10-31 07:08 | CP.PCM.PN ---
Subjective - Date & Time of Evaluation Date of Evaluation: 10/31/17 Time of Evaluation: 06:25 - Subjective Subjective: awake, no distress, tolerable pain on right leg Reason for consultation and follow up: Cardiac pre-op evaluation and risk stratification for right foot below knee amputation surgery. history of coronary artery disease with multiple stents, PPM , ESRD on hemodialysis, heparin induced thrombocytopenia, status post below knee amputation of right leg. Seen and examined by me and Dr. Erickson Objective - Vital Signs/Intake and Output Vital Signs (last 24 hours): Temp Pulse Resp BP Pulse Ox 98 F 65 18 120/36 L 100 10/31/17 01:32 10/31/17 01:32 10/31/17 01:32 10/31/17 01:32 10/30/17 21:49 Intake and Output: 10/31/17 10/31/17 06:59 18:59 Intake Total 936 Balance 936 - Medications Medications: Current Medications Albuterol/Ipratropium (Duoneb 3 Mg/0.5 Mg (3 Ml) Ud) 3 ml IH [id number] PRN PRN Reason: Shortness of Breath Last Admin: 10/30/17 07:16 Dose: 3 ml Arformoterol Tartrate (Brovana) 15 mcg IH [id number] [facility] Last Admin: 10/30/17 19:29 Dose: Not Given Atorvastatin Calcium (Lipitor) 40 mg PO DIN [facility] Last Admin: 10/30/17 18:28 Dose: 40 mg Bacitracin (Bacitracin) 1 ea TOP BID [facility] Last Admin: 10/30/17 17:56 Dose: Not Given Budesonide (Pulmicort Respules) 0.5 mg IH [id number] [facility] Last Admin: 10/30/17 19:29 Dose: Not Given Calcium Acetate (Phoslo) 1,334 mg PO WM [facility] Last Admin: 10/30/17 18:29 Dose: 1,334 mg Diphenhydramine HCl (Benadryl) 25 mg PO HS PRN PRN Reason: Insomnia Last Admin: 10/30/17 23:03 Dose: 25 mg Ergocalciferol (Drisdol 50,000 Intl Units Cap) 1 cap PO WED [facility] Last Admin: 10/25/17 15:12 Dose: Not Given Famotidine (Pepcid) 10 mg PO 2200 [facility] Last Admin: 10/30/17 23:02 Dose: 10 mg Fenofibrate (Tricor) 145 mg PO DAILY [facility] Last Admin: 10/30/17 18:29 Dose: 145 mg Hydralazine HCl (Apresoline) 25 mg PO BID [facility] Last Admin: 10/30/17 18:05 Dose: Not Given Hydromorphone HCl (Dilaudid) 0.5 mg IVP Q4H PRN PRN Reason: Pain, severe (8-10) Stop: 11/01/17 17:13 Last Admin: 10/31/17 05:14 Dose: 0.5 mg Micafungin Sodium 100 mg/ (Sodium Chloride) 100 mls @ 100 mls/hr IV DAILY [facility] PRN Reason: Protocol Stop: 11/09/17 12:16 Last Admin: 10/30/17 18:28 Dose: 100 mls/hr Dextrose/Sodium Chloride (Dextrose 5%/0.45% Ns 1000 Ml) 1,000 mls @ 60 mls/hr IV .[id number] [facility] Insulin Human NPH (Humulin N) 20 units SC QPM [facility] Last Admin: 10/30/17 18:03 Dose: Not Given Insulin Human Regular (Humulin R High) 0 units SC ACHS [facility] PRN Reason: Protocol Last Admin: 10/31/17 05:05 Dose: Not Given Latanoprost (Xalatan Opht) 0 ml OU HS [facility] Last Admin: 10/31/17 05:06 Dose: Not Given Levothyroxine Sodium (Synthroid) 25 mcg PO 0600 [facility] Last Admin: 10/30/17 06:31 Dose: 25 mcg Loratadine (Claritin) 10 mg PO HS [facility] Last Admin: 10/31/17 05:05 Dose: Not Given Metoprolol Tartrate (Lopressor) 25 mg PO BID [facility] Last Admin: 10/30/17 18:06 Dose: Not Given Montelukast Sodium (Singulair) 10 mg PO HS [facility] Last Admin: 10/30/17 23:03 Dose: 10 mg Multivitamins (Thera Tab) 1 tab PO DAILY [facility] Last Admin: 10/30/17 18:31 Dose: 1 tab Salmeterol Xinafoate /Fluticaso [Advair Hfa 230-21] 1 puff IH BID [facility] Last Admin: 10/30/17 18:06 Dose: Not Given Facah-0-Bwmz Ethyl Esters (Lovaza) 2 gm PO BID [facility] Last Admin: 10/30/17 18:30 Dose: 2 gm Ondansetron HCl (Zofran Inj) 4 mg IVP Q6H PRN PRN Reason: Nausea/Vomiting Last Admin: 10/23/17 06:48 Dose: 4 mg Oxycodone/Acetaminophen (Percocet 5/325 Mg Tab) 1 tab PO BID PRN PRN Reason: Pain, moderate (4-7) Stop: 10/31/17 17:12 Last Admin: 10/29/17 21:53 Dose: 1 tab Pregabalin (Lyrica) 50 mg PO [facility] Last Admin: 10/30/17 23:03 Dose: 50 mg Sevelamer HCl (Renagel) 1,600 mg PO [facility] Last Admin: 10/30/17 18:29 Dose: 1,600 mg Sodium Chloride ([place] Nasal [place]) 0 ml NS Q2H PRN PRN Reason: Nasal congestion Tamsulosin HCl (Flomax) 0.4 mg PO [facility] Last Admin: 10/30/17 23:03 Dose: 0.4 mg Ticagrelor (Brilinta) 90 mg PO BID [facility] Last Admin: 10/19/17 17:13 Dose: 90 mg - Labs Labs: 10/31/17 06:00 10/30/17 09:30 PT 19.8 SECONDS (9.4-12.5) H 10/29/17 06:30 INR 1.70 10/29/17 06:30 APTT 32.6 Seconds (25.1-36.5) 10/29/17 06:30 - Constitutional Appears: No Acute Distress - Eye Exam Eye Exam: Normal appearance - ENT Exam ENT Exam: Mucous Membranes Moist - Respiratory Exam Respiratory Exam: Decreased Breath Sounds, NORMAL BREATHING PATTERN - Cardiovascular Exam Cardiovascular Exam: +S1, +S2 Additional comments: PPM - GI/Abdominal Exam GI & Abdominal Exam: Soft, Normal Bowel Sounds - Exam Additional comments: hemodialysis 3x a week MWF - Extremities Exam Additional comments: right below knee amputation with OUMOU drain and immobilizer left AV shunt positive bruit/thrill - Neurological Exam Neurological Exam: Alert, Awake, Oriented x3 - Psychiatric Exam Psychiatric exam: Normal Affect - Skin Skin Exam: Dry, Warm Assessment and Plan - Assessment and Plan (Free Text) Assessment: A 52 year old make known to service who came in to the ER due to worsening non healing wound of the right foot. [place] [facility] [place] of right foot transmetatarsal, stablized and transferred to [facility]. History of coronary artery disease with multiple stents, NSTEMI, ESRD on hemodialysis, peripheral arterial disease, insulin dependent diabetes mellitus, diabetic neuropathy, diabetic retinopathy,PPM for sinus junctional rhythm symptomatic.subdural hematoma post fall, resistant to Plavix, on Brilinta and Aspirin but discontinued due to surgery. He had also fungicemia,LASHAWN done to rule out endocarditis and results no evidence of vegetations. ID on consult and on antibiotics, low platelet count and positive for Heparin induced thrombocytopenia and started on Argatroban.Transferred to ICU for monitoring. Hematology on consult and follow up. Stabilized and now transferred to telemetry then to Med/Surg unit. Status Post right below knee amputation yesterday.stable. Plan: Stable post right below knee amputation yesterday Controlled blood pressure and heart rate Stable cardiac status Had hemodialysis yesterday prior to surgery H/H 8.3/25.6, monitor and consider transfusing below 8.0 Platelet stabilized Continue current treatment Continue current medications On IV antibiotics per ID On contact isolation Physical therapy Will follow up Plan and treatment discussed with Dr. Erickson
[2017-10-31] MEDS: Arformoterol 15 mcg/2 ml Inh Sol IH SCH ×2 (07:15→19:57)
[2017-10-31] MEDS: Budesonide 0.5 mg/2 ml Inhal Susp UD IH SCH ×2 (07:15→19:57)
--- NOTE | 2017-10-31 09:15 | CP.PCM.PN ---
Subjective - Date & Time of Evaluation Date of Evaluation: 10/31/17 Time of Evaluation: 06:45 - Subjective Subjective: General Surgery Note for Dr. Urrutia Patient seen and examined at bedside. No acute event overnight. He is s/p R BKA POD#1. Patient states his pain is minimal and controlled with pain medication. Patient is tolerating diet. He has no other compliants at this time. Objective - Vital Signs/Intake and Output Vital Signs (last 24 hours): Temp Pulse Resp BP Pulse Ox 98.7 F 72 18 150/43 L 99 10/31/17 06:00 10/31/17 06:00 10/31/17 06:00 10/31/17 06:00 10/31/17 06:00 Intake and Output: 10/31/17 10/31/17 06:59 18:59 Intake Total 936 Balance 936 - Medications Medications: Current Medications Albuterol/Ipratropium (Duoneb 3 Mg/0.5 Mg (3 Ml) Ud) 3 ml IH [id number] PRN PRN Reason: Shortness of Breath Last Admin: 10/30/17 07:16 Dose: 3 ml Arformoterol Tartrate (Brovana) 15 mcg IH [id number] [facility] Last Admin: 10/30/17 19:29 Dose: Not Given Atorvastatin Calcium (Lipitor) 40 mg PO DIN [facility] Last Admin: 10/30/17 18:28 Dose: 40 mg Bacitracin (Bacitracin) 1 ea TOP BID [facility] Last Admin: 10/30/17 17:56 Dose: Not Given Budesonide (Pulmicort Respules) 0.5 mg IH [id number] [facility] Last Admin: 10/30/17 19:29 Dose: Not Given Calcium Acetate (Phoslo) 1,334 mg PO WM [facility] Last Admin: 10/31/17 08:41 Dose: 1,334 mg Diphenhydramine HCl (Benadryl) 25 mg PO HS PRN PRN Reason: Insomnia Last Admin: 10/30/17 23:03 Dose: 25 mg Ergocalciferol (Drisdol 50,000 Intl Units Cap) 1 cap PO WED [facility] Last Admin: 10/25/17 15:12 Dose: Not Given Famotidine (Pepcid) 10 mg PO 2200 [facility] Last Admin: 08/13/18 23:02 Dose: 10 mg Fenofibrate (Tricor) 145 mg PO DAILY [facility] Last Admin: 10/30/17 18:29 Dose: 145 mg Hydralazine HCl (Apresoline) 25 mg PO BID [facility] Last Admin: 10/30/17 18:05 Dose: Not Given Hydromorphone HCl (Dilaudid) 0.5 mg IVP Q4H PRN PRN Reason: Pain, severe (8-10) Stop: 11/01/17 17:13 Last Admin: 10/31/17 05:14 Dose: 0.5 mg Micafungin Sodium 100 mg/ (Sodium Chloride) 100 mls @ 100 mls/hr IV DAILY [facility] PRN Reason: Protocol Stop: 11/09/17 12:16 Last Admin: 10/30/17 18:28 Dose: 100 mls/hr Dextrose/Sodium Chloride (Dextrose 5%/0.45% Ns 1000 Ml) 1,000 mls @ 60 mls/hr IV .[id number] [facility] Insulin Human NPH (Humulin N) 20 units SC QPM [facility] Last Admin: 10/30/17 18:03 Dose: Not Given Insulin Human Regular (Humulin R High) 0 units SC ACHS [facility] PRN Reason: Protocol Last Admin: 10/31/17 08:41 Dose: 4 units Latanoprost (Xalatan Opht) 0 ml OU HS [facility] Last Admin: 10/31/17 05:06 Dose: Not Given Levothyroxine Sodium (Synthroid) 25 mcg PO 0600 [facility] Last Admin: 10/30/17 06:31 Dose: 25 mcg Loratadine (Claritin) 10 mg PO HS [facility] Last Admin: 10/31/17 05:05 Dose: Not Given Metoprolol Tartrate (Lopressor) 25 mg PO BID [facility] Last Admin: 10/30/17 18:06 Dose: Not Given Montelukast Sodium (Singulair) 10 mg PO HS [facility] Last Admin: 10/30/17 23:03 Dose: 10 mg Multivitamins (Thera Tab) 1 tab PO DAILY [facility] Last Admin: 10/30/17 18:31 Dose: 1 tab Salmeterol Xinafoate /Fluticaso [Advair Hfa 230-21] 1 puff IH BID [facility] Last Admin: 10/30/17 18:06 Dose: Not Given Djonb-5-Uevg Ethyl Esters (Lovaza) 2 gm PO BID [facility] Last Admin: 10/30/17 18:30 Dose: 2 gm Ondansetron HCl (Zofran Inj) 4 mg IVP Q6H PRN PRN Reason: Nausea/Vomiting Last Admin: 10/23/17 06:48 Dose: 4 mg Oxycodone/Acetaminophen (Percocet 5/325 Mg Tab) 1 tab PO BID PRN PRN Reason: Pain, moderate (4-7) Stop: 10/31/17 17:12 Last Admin: 10/29/17 21:53 Dose: 1 tab Pregabalin (Lyrica) 50 mg PO [facility] Last Admin: 10/30/17 23:03 Dose: 50 mg Sevelamer HCl (Renagel) 1,600 mg PO WM [facility] Last Admin: 10/31/17 08:41 Dose: 1,600 mg Sodium Chloride ([place] Nasal [place]) 0 ml NS Q2H PRN PRN Reason: Nasal congestion Tamsulosin HCl (Flomax) 0.4 mg PO [facility] Last Admin: 10/30/17 23:03 Dose: 0.4 mg Ticagrelor (Brilinta) 90 mg PO BID [facility] Last Admin: 10/19/17 17:13 Dose: 90 mg - Labs Labs: 10/31/17 06:00 10/31/17 06:00 PT 19.8 SECONDS (9.4-12.5) H 10/29/17 06:30 INR 1.70 10/29/17 06:30 APTT 32.6 Seconds (25.1-36.5) 10/29/17 06:30 - Constitutional Appears: No Acute Distress - Head Exam Head Exam: ATRAUMATIC, NORMOCEPHALIC - Eye Exam Eye Exam: Normal appearance - ENT Exam ENT Exam: Mucous Membranes Moist - Respiratory Exam Respiratory Exam: Clear to Ausculation Bilateral - Cardiovascular Exam Cardiovascular Exam: REGULAR RHYTHM - GI/Abdominal Exam GI & Abdominal Exam: Soft. absent: Tenderness - Extremities Exam Additional comments: s/p R BKA dressing and immobilizer in place rina drain with minimal output since OR - Neurological Exam Neurological Exam: Alert, Awake, Oriented x3 - Psychiatric Exam Psychiatric exam: Normal Affect, Normal Mood - Skin Skin Exam: Dry, Warm Assessment and Plan - Assessment and Plan (Free Text) Assessment: 52 M s/p R BKA POD#1 Plan: -Renal diet -Pain control -Monitor drain output -Do not touch dressing or immobilizer -May restart anti-platelet therapy -Further recommendations as per Dr. Renan Allen PGY2
--- NOTE | 2017-10-31 09:26 | CP.PCM.PN ---
<Asia Aguila - Last Filed: 10/31/17 14:31> Subjective - Date & Time of Evaluation Date of Evaluation: 10/31/17 Time of Evaluation: 07:00 - Subjective Subjective: PGY-[address] Potter No acute complaint s/p BKA. He said his L middle finger starting to hurt. no erythema/drainage. Objective - Vital Signs/Intake and Output Vital Signs (last 24 hours): Temp Pulse Resp BP Pulse Ox 98.7 F 72 18 150/43 L 99 10/31/17 06:00 10/31/17 06:00 10/31/17 06:00 10/31/17 06:00 10/31/17 06:00 Intake and Output: 10/31/17 10/31/17 06:59 18:59 Intake Total 936 Balance 936 - Medications Medications: Current Medications Albuterol/Ipratropium (Duoneb 3 Mg/0.5 Mg (3 Ml) Ud) 3 ml IH [id number] PRN PRN Reason: Shortness of Breath Last Admin: 10/30/17 07:16 Dose: 3 ml Arformoterol Tartrate (Brovana) 15 mcg IH [id number] [facility] Last Admin: 10/30/17 19:29 Dose: Not Given Atorvastatin Calcium (Lipitor) 40 mg PO DIN [facility] Last Admin: 10/30/17 18:28 Dose: 40 mg Bacitracin (Bacitracin) 1 ea TOP BID [facility] Last Admin: 10/30/17 17:56 Dose: Not Given Budesonide (Pulmicort Respules) 0.5 mg IH [id number] [facility] Last Admin: 10/30/17 19:29 Dose: Not Given Calcium Acetate (Phoslo) 1,334 mg PO WM [facility] Last Admin: 10/31/17 08:41 Dose: 1,334 mg Diphenhydramine HCl (Benadryl) 25 mg PO HS PRN PRN Reason: Insomnia Last Admin: 10/30/17 23:03 Dose: 25 mg Ergocalciferol (Drisdol 50,000 Intl Units Cap) 1 cap PO WED [facility] Last Admin: 10/25/17 15:12 Dose: Not Given Famotidine (Pepcid) 10 mg PO 2200 [facility] Last Admin: 10/30/17 23:02 Dose: 10 mg Fenofibrate (Tricor) 145 mg PO DAILY [facility] Last Admin: 10/30/17 18:29 Dose: 145 mg Hydralazine HCl (Apresoline) 25 mg PO BID [facility] Last Admin: 10/30/17 18:05 Dose: Not Given Hydromorphone HCl (Dilaudid) 0.5 mg IVP Q4H PRN PRN Reason: Pain, severe (8-10) Stop: 11/01/17 17:13 Last Admin: 10/31/17 05:14 Dose: 0.5 mg Micafungin Sodium 100 mg/ (Sodium Chloride) 100 mls @ 100 mls/hr IV DAILY [facility] PRN Reason: Protocol Stop: 11/09/17 12:16 Last Admin: 10/30/17 18:28 Dose: 100 mls/hr Dextrose/Sodium Chloride (Dextrose 5%/0.45% Ns 1000 Ml) 1,000 mls @ 60 mls/hr IV .[id number] [facility] Insulin Human NPH (Humulin N) 20 units SC QPM [facility] Last Admin: 10/30/17 18:03 Dose: Not Given Insulin Human Regular (Humulin R High) 0 units SC ACHS [facility] PRN Reason: Protocol Last Admin: 10/31/17 08:41 Dose: 4 units Latanoprost (Xalatan Opht) 0 ml OU HS [facility] Last Admin: 10/31/17 05:06 Dose: Not Given Levothyroxine Sodium (Synthroid) 25 mcg PO 0600 [facility] Last Admin: 10/30/17 06:31 Dose: 25 mcg Loratadine (Claritin) 10 mg PO HS [facility] Last Admin: 10/31/17 05:05 Dose: Not Given Metoprolol Tartrate (Lopressor) 25 mg PO BID [facility] Last Admin: 10/30/17 18:06 Dose: Not Given Montelukast Sodium (Singulair) 10 mg PO HS [facility] Last Admin: 10/30/17 23:03 Dose: 10 mg Multivitamins (Thera Tab) 1 tab PO DAILY [facility] Last Admin: 10/30/17 18:31 Dose: 1 tab Salmeterol Xinafoate /Fluticaso [Advair Hfa 230-21] 1 puff IH BID [facility] Last Admin: 10/30/17 18:06 Dose: Not Given [id number] Ethyl Esters (Lovaza) 2 gm PO BID [facility] Last Admin: 10/30/17 18:30 Dose: 2 gm Ondansetron HCl (Zofran Inj) 4 mg IVP Q6H PRN PRN Reason: Nausea/Vomiting Last Admin: 10/23/17 06:48 Dose: 4 mg Oxycodone/Acetaminophen (Percocet 5/325 Mg Tab) 1 tab PO BID PRN PRN Reason: Pain, moderate (4-7) Stop: 10/31/17 17:12 Last Admin: 10/29/17 21:53 Dose: 1 tab Pregabalin (Lyrica) 50 mg PO [facility] Last Admin: 10/30/17 23:03 Dose: 50 mg Sevelamer HCl (Renagel) 1,600 mg PO [facility] Last Admin: 10/31/17 08:41 Dose: 1,600 mg Sodium Chloride ([place] Nasal [place]) 0 ml NS Q2H PRN PRN Reason: Nasal congestion Tamsulosin HCl (Flomax) 0.4 mg PO [facility] Last Admin: 10/30/17 23:03 Dose: 0.4 mg Ticagrelor (Brilinta) 90 mg PO BID [facility] Last Admin: 10/19/17 17:13 Dose: 90 mg - Labs Labs: 10/31/17 06:00 10/31/17 06:00 PT 19.8 SECONDS (9.4-12.5) H 10/29/17 06:30 INR 1.70 10/29/17 06:30 APTT 32.6 Seconds (25.1-36.5) 10/29/17 06:30 - Constitutional Appears: No Acute Distress - Head Exam Head Exam: ATRAUMATIC, NORMAL INSPECTION, NORMOCEPHALIC - Eye Exam Eye Exam: EOMI, Normal appearance, PERRL. absent: Scleral icterus Pupil Exam: NORMAL ACCOMODATION - ENT Exam ENT Exam: Mucous Membranes Moist - Neck Exam Additional comments: supple - Respiratory Exam Respiratory Exam: Clear to Ausculation Bilateral. absent: Rales, Rhonchi, Wheezes - Cardiovascular Exam Cardiovascular Exam: REGULAR RHYTHM, +S1, +S2 - GI/Abdominal Exam GI & Abdominal Exam: Soft, Normal Bowel Sounds. absent: Tenderness - Extremities Exam Extremities Exam: absent: Calf Tenderness, Pedal Edema Additional comments: R BKA dressing d/c/i - Back Exam Back Exam: absent: CVA tenderness (L), CVA tenderness (R) - Neurological Exam Neurological Exam: Alert, Awake, Oriented x3 - Psychiatric Exam Psychiatric exam: Normal Affect, Normal Mood - Skin Skin Exam: Dry, Warm Assessment and Plan - Assessment and Plan (Free Text) Plan: Mr Berger, 52 M recently s/p transmetatarsal amputation of the right foot () due to wet gangrene to the right foot and bone exposure. He is on Dual antiplatelet for recent cardiac stent in May. His RLE stump is not healing, possibly because he is a vasculopath and he weight bear despite warning. Due to the non-healing wound due to poor perfusion, he was scheduled for R BKA. The surgery was delayed twice because he developed fungemia on zyvox, merem, micafungin. 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 He was transferred to ICU for agatroban but developed GI bleed. Since agatroban is held, no longer need ICU, and he transferred to telemetry. Now off ASA, brilinta, heparin SC, agatroban. He underwent BKA on 10/30/17. 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 WHEN TO RESTART??? - High uriel-operative cardiac risk. Dry gangrene, L middle finger - bacitracin. 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 Serotonin release assy negative. Equivacal result Fungemia (10/16). First negative bottle on 10/19 - Had ruled out endopthalmitis by opthalmologist - Echo showed EF 55. RVSP 49. Aortic cusp calcified cannot r/o veg. No sig changes to echo 1 month ago. - LASHAWN no vegetation in pacemaker lead. - For fungemia, mycafungin, day __/___. Stopped Merem & Linezolid (x 6 day) for possible cause of low platelet Anemia (baseline 8-9), s/p 5u RBC - Anemia of chronic disease and due to ESRD, asymptomatic HTN/PVD - hydralazine GI bleed, due to thrombocytopenia and agatroban -- resolved - Hb stable at 9. - EGD showed supermucosal tear and colonoscopy showed stool, no active bleed. tolerated diet. CAD s/p 2 YORDY in LAD (06/13/17) on dual-antiplatelet, CHF, pacemaker (metronic) - Continue metoprolol, lipitor, fenofibrate, lovaza. ASA/Brilinta on hold. RENATA; COPD; severe pulmonary HTN - cannot tolerate cpap - HOB 45, Duoneb PRN, brovana, budesonide, montelikast, ocean spray; Advair not available in hospital - claritin for allergy DM_2__, peripheral neuropathy - Increase humulin N to 25 HS - ISSS-high Hx CVA with L residual weakness ESRD due to HTN/DM, with Anemia, Hyperphosphatemia, Secondary Hyperparathyroidism - HD MWF - continue Vit D2, multivitamin, sevelamer. d/c phoslo For Glucoma, bimatoprost For insomnia, benadryl HS prn For hypothyroidism, synthroid 25 Flomax for Bph Prophylaxis: high risk of GI stress ulcer due to bleed/fungemia. On low dose pepcid. Off anticoagulant due to GI bleed. SCD on L leg. Moxifloxacin and PCN allergy Discharge planning: Acute Rehab. D/C midline when discharge. Consult: Renan Figueroa, Dre, Lali Villanueva Rau, Anabelle, Cyndee Access: L AV fistula. Peripheral IV s/r/d/w Dr. Potter <Gallo Potter S - Last Filed: 10/31/17 18:58> Objective - Vital Signs/Intake and Output Vital Signs (last 24 hours): Temp Pulse Resp BP Pulse Ox 98.6 F 62 18 150/43 L 100 10/31/17 14:00 10/31/17 14:00 10/31/17 14:00 10/31/17 06:00 10/31/17 14:00 Intake and Output: 10/31/17 10/31/17 06:59 18:59 Intake Total 936 Balance 936 - Medications Medications: Current Medications Albuterol/Ipratropium (Duoneb 3 Mg/0.5 Mg (3 Ml) Ud) 3 ml IH [id number] PRN PRN Reason: Shortness of Breath Last Admin: 10/30/17 07:16 Dose: 3 ml Arformoterol Tartrate (Brovana) 15 mcg IH [id number] [facility] Last Admin: 10/31/17 07:15 Dose: 15 mcg Aspirin (Aspirin Chewable) 81 mg PO DAILY [facility] Last Admin: 10/31/17 17:22 Dose: 81 mg Atorvastatin Calcium (Lipitor) 40 mg PO DIN [facility] Last Admin: 10/31/17 17:25 Dose: 40 mg Bacitracin (Bacitracin) 1 ea TOP BID [facility] Last Admin: 10/31/17 10:49 Dose: Not Given Budesonide (Pulmicort Respules) 0.5 mg IH [id number] [facility] Last Admin: 10/31/17 07:15 Dose: 0.5 mg Diphenhydramine HCl (Benadryl) 25 mg PO HS PRN PRN Reason: Insomnia Last Admin: 10/30/17 23:03 Dose: 25 mg Ergocalciferol (Drisdol 50,000 Intl Units Cap) 1 cap PO WED [facility] Last Admin: 10/25/17 15:12 Dose: Not Given Famotidine (Pepcid) 10 mg PO 2200 [facility] Last Admin: 10/30/17 23:02 Dose: 10 mg Fenofibrate (Tricor) 145 mg PO DAILY [facility] Last Admin: 10/31/17 10:49 Dose: 145 mg Hydralazine HCl (Apresoline) 25 mg PO BID [facility] Last Admin: 10/31/17 17:22 Dose: 25 mg Hydromorphone HCl (Dilaudid) 0.5 mg IVP Q4H PRN PRN Reason: Pain, severe (8-10) Stop: 11/01/17 17:13 Last Admin: 10/31/17 14:42 Dose: 0.5 mg Micafungin Sodium 100 mg/ (Sodium Chloride) 100 mls @ 100 mls/hr IV DAILY [facility] PRN Reason: Protocol Stop: 11/09/17 12:16 Last Admin: 10/31/17 10:00 Dose: 100 mls/hr Insulin Human NPH (Humulin N) 25 units SC QPM [facility] Last Admin: 10/31/17 17:22 Dose: Not Given Insulin Human Regular (Humulin R High) 0 units SC ACHS [facility] PRN Reason: Protocol Last Admin: 10/31/17 17:23 Dose: 2 units Latanoprost (Xalatan Opht) 0 ml OU HS [facility] Last Admin: 10/31/17 05:06 Dose: Not Given Levothyroxine Sodium (Synthroid) 25 mcg PO 0600 [facility] Last Admin: 10/30/17 06:31 Dose: 25 mcg Loratadine (Claritin) 10 mg PO HS [facility] Last Admin: 10/31/17 05:05 Dose: Not Given Metoprolol Tartrate (Lopressor) 25 mg PO BID [facility] Last Admin: 10/31/17 17:22 Dose: 25 mg Montelukast Sodium (Singulair) 10 mg PO HS [facility] Last Admin: 10/30/17 23:03 Dose: 10 mg Multivitamins (Thera Tab) 1 tab PO DAILY [facility] Last Admin: 10/31/17 10:48 Dose: 1 tab [id number]-[id number] Ethyl Esters (Lovaza) 2 gm PO BID [facility] Last Admin: 10/31/17 17:22 Dose: 2 gm Ondansetron HCl (Zofran Inj) 4 mg IVP Q6H PRN PRN Reason: Nausea/Vomiting Last Admin: 10/23/17 06:48 Dose: 4 mg Pregabalin (Lyrica) 50 mg PO HS [facility] Last Admin: 10/30/17 23:03 Dose: 50 mg Sevelamer HCl (Renagel) 1,600 mg PO WM [facility] Last Admin: 10/31/17 17:22 Dose: 1,600 mg Sodium Chloride ([place] Nasal [place]) 0 ml NS Q2H PRN PRN Reason: Nasal congestion Tamsulosin HCl (Flomax) 0.4 mg PO HS [facility] Last Admin: 10/30/17 23:03 Dose: 0.4 mg Ticagrelor (Brilinta) 90 mg PO BID [facility] Last Admin: 10/31/17 17:22 Dose: 90 mg - Labs Labs: 10/31/17 06:00 10/31/17 06:00 PT 19.8 SECONDS (9.4-12.5) H 10/29/17 06:30 INR 1.70 10/29/17 06:30 APTT 32.6 Seconds (25.1-36.5) 10/29/17 06:30 Assessment and Plan - Assessment and Plan (Free Text) Plan: Pt seen and examined. I have reviewed the note of the medical staff specialist and agree with it. I have discussed the assessment and plan with the resident. I have reviewed the patient's labs and medications. Pt had surgery yesterday and did well. He is going to need acute rehab. Pain is controlled. Spoke to SW about acute rehab. HD is ongoing. D/C PhosLo due to calcium load and pill burden. Eating well.
[2017-10-31] MEDS: Micafungin 100 MG in Sodium Chloride 0.9% 100 ML IV SCH (10:00)
[2017-10-31] MEDS: Multivitamin Therapeutic Tab PO SCH (10:48)
[2017-10-31] MEDS: Omega-3-Acid Ethyl Esters 1 GM Cap PO SCH ×2 (10:49→17:22)
[2017-10-31] MEDS: Bacitracin 500 Units/gm Oint Foilpak UD TOP SCH (10:49)
--- NOTE | 2017-10-31 12:12 | CP.PCM.PN ---
Subjective - Date & Time of Evaluation Date of Evaluation: 10/31/17 Time of Evaluation: 10:30 - Subjective Subjective: S&E at bedside, chart reviewed, POD #1 s/p right BKA. Patient reports that he is a bit drowsy but feeling well, No c/o N/V or any discomfort. No SOB or chest pain. Had formed BM, no melena or BRBPR. No acute events overnight. Objective - Vital Signs/Intake and Output Vital Signs (last 24 hours): Temp Pulse Resp BP Pulse Ox 98.7 F 73 18 150/43 L 99 10/31/17 06:00 10/31/17 10:48 10/31/17 06:00 10/31/17 06:00 10/31/17 06:00 Intake and Output: 10/31/17 10/31/17 06:59 18:59 Intake Total 936 Balance 936 - Medications Medications: Current Medications Albuterol/Ipratropium (Duoneb 3 Mg/0.5 Mg (3 Ml) Ud) 3 ml IH [id number] PRN PRN Reason: Shortness of Breath Last Admin: 10/30/17 07:16 Dose: 3 ml Arformoterol Tartrate (Brovana) 15 mcg IH [id number] [facility] Last Admin: 10/30/17 19:29 Dose: Not Given Atorvastatin Calcium (Lipitor) 40 mg PO DIN [facility] Last Admin: 10/30/17 18:28 Dose: 40 mg Bacitracin (Bacitracin) 1 ea TOP BID [facility] Last Admin: 10/31/17 10:49 Dose: Not Given Budesonide (Pulmicort Respules) 0.5 mg IH [id number] [facility] Last Admin: 10/30/17 19:29 Dose: Not Given Calcium Acetate (Phoslo) 1,334 mg PO WM [facility] Last Admin: 10/31/17 08:41 Dose: 1,334 mg Diphenhydramine HCl (Benadryl) 25 mg PO HS PRN PRN Reason: Insomnia Last Admin: 10/30/17 23:03 Dose: 25 mg Ergocalciferol (Drisdol 50,000 Intl Units Cap) 1 cap PO WED [facility] Last Admin: 10/25/17 15:12 Dose: Not Given Famotidine (Pepcid) 10 mg PO 2200 [facility] Last Admin: 10/30/17 23:02 Dose: 10 mg Fenofibrate (Tricor) 145 mg PO DAILY [facility] Last Admin: 10/31/17 10:49 Dose: 145 mg Hydralazine HCl (Apresoline) 25 mg PO BID [facility] Last Admin: 10/31/17 10:50 Dose: 25 mg Hydromorphone HCl (Dilaudid) 0.5 mg IVP Q4H PRN PRN Reason: Pain, severe (8-10) Stop: 11/01/17 17:13 Last Admin: 10/31/17 10:48 Dose: 0.5 mg Micafungin Sodium 100 mg/ (Sodium Chloride) 100 mls @ 100 mls/hr IV DAILY [facility] PRN Reason: Protocol Stop: 11/09/17 12:16 Last Admin: 10/30/17 18:28 Dose: 100 mls/hr Dextrose/Sodium Chloride (Dextrose 5%/0.45% Ns 1000 Ml) 1,000 mls @ 60 mls/hr IV .[id number] [facility] Insulin Human NPH (Humulin N) 20 units SC QPM [facility] Last Admin: 10/30/17 18:03 Dose: Not Given Insulin Human Regular (Humulin R High) 0 units SC ACHS [facility] PRN Reason: Protocol Last Admin: 10/31/17 08:41 Dose: 4 units Latanoprost (Xalatan Opht) 0 ml OU HS [facility] Last Admin: 10/31/17 05:06 Dose: Not Given Levothyroxine Sodium (Synthroid) 25 mcg PO 0600 [facility] Last Admin: 10/30/17 06:31 Dose: 25 mcg Loratadine (Claritin) 10 mg PO HS [facility] Last Admin: 10/31/17 05:05 Dose: Not Given Metoprolol Tartrate (Lopressor) 25 mg PO BID [facility] Last Admin: 10/31/17 10:48 Dose: 25 mg Montelukast Sodium (Singulair) 10 mg PO HS [facility] Last Admin: 10/30/17 23:03 Dose: 10 mg Multivitamins (Thera Tab) 1 tab PO DAILY [facility] Last Admin: 10/31/17 10:48 Dose: 1 tab Salmeterol Xinafoate /Fluticaso [Advair Hfa 230-21] 1 puff IH BID [facility] Last Admin: 10/30/17 18:06 Dose: Not Given [id number] Ethyl Esters (Lovaza) 2 gm PO BID [facility] Last Admin: 10/31/17 10:49 Dose: 2 gm Ondansetron HCl (Zofran Inj) 4 mg IVP Q6H PRN PRN Reason: Nausea/Vomiting Last Admin: 10/23/17 06:48 Dose: 4 mg Oxycodone/Acetaminophen (Percocet 5/325 Mg Tab) 1 tab PO BID PRN PRN Reason: Pain, moderate (4-7) Stop: 10/31/17 17:12 Last Admin: 10/29/17 21:53 Dose: 1 tab Pregabalin (Lyrica) 50 mg PO [facility] Last Admin: 10/30/17 23:03 Dose: 50 mg Sevelamer HCl (Renagel) 1,600 mg PO WM [facility] Last Admin: 10/31/17 08:41 Dose: 1,600 mg Sodium Chloride ([place] Nasal [place]) 0 ml NS Q2H PRN PRN Reason: Nasal congestion Tamsulosin HCl (Flomax) 0.4 mg PO [facility] Last Admin: 10/30/17 23:03 Dose: 0.4 mg Ticagrelor (Brilinta) 90 mg PO BID [facility] Last Admin: 10/19/17 17:13 Dose: 90 mg - Labs Labs: 10/31/17 06:00 10/31/17 06:00 PT 19.8 SECONDS (9.4-12.5) H 10/29/17 06:30 INR 1.70 10/29/17 06:30 APTT 32.6 Seconds (25.1-36.5) 10/29/17 06:30 - Constitutional Appears: No Acute Distress - Head Exam Head Exam: NORMOCEPHALIC - Eye Exam Eye Exam: Normal appearance. absent: Scleral icterus - ENT Exam ENT Exam: Mucous Membranes Moist - Respiratory Exam Respiratory Exam: NORMAL BREATHING PATTERN. absent: Respiratory Distress - Cardiovascular Exam Cardiovascular Exam: +S1, +S2 - GI/Abdominal Exam GI & Abdominal Exam: Soft, Normal Bowel Sounds. absent: Guarding, Tenderness, Rebound - Extremities Exam Extremities Exam: absent: Calf Tenderness, Pedal Edema Additional comments: right BKA, dressing dry and intact, drain with serosanguenous fluid, small amount - Neurological Exam Neurological Exam: Alert, Awake, Oriented x3 - Skin Skin Exam: Dry, Warm Assessment and Plan - Assessment and Plan (Free Text) Assessment: Assessment: Non-healing ulcer, S/p right BKA 10/30/17 GI Bleed/BRBPR, s/p EGD & flexsig no active bleeding noted Anemia ESRD on HD CAD PLAN: diet as tolerated monitor h/H and for overt GI bleeding on IV antibiotics pain mgt as per surgery Discussed w/ Arleen Blood covering Dr. Ahn.
--- NOTE | 2017-10-31 16:47 | CP.PCM.PN ---
Subjective - Date & Time of Evaluation Date of Evaluation: 10/31/17 Time of Evaluation: 10:35 - Subjective Subjective: Patient has BKA yesterday, no fevers, not in distress, no nausea. Objective - Vital Signs/Intake and Output Vital Signs (last 24 hours): Temp Pulse Resp BP Pulse Ox 98.8 F 83 16 141/36 L 98 10/30/17 17:23 10/30/17 17:23 10/30/17 17:23 10/30/17 17:23 10/30/17 17:23 - Medications Medications: Current Medications Albuterol/Ipratropium (Duoneb 3 Mg/0.5 Mg (3 Ml) Ud) 3 ml IH [id number] PRN PRN Reason: Shortness of Breath Last Admin: 10/30/17 07:16 Dose: 3 ml Arformoterol Tartrate (Brovana) 15 mcg IH [id number] [facility] Last Admin: 10/30/17 19:29 Dose: Not Given Atorvastatin Calcium (Lipitor) 40 mg PO DIN [facility] Last Admin: 10/30/17 18:28 Dose: 40 mg Bacitracin (Bacitracin) 1 ea TOP BID [facility] Last Admin: 10/30/17 17:56 Dose: Not Given Budesonide (Pulmicort Respules) 0.5 mg IH [id number] [facility] Last Admin: 10/30/17 19:29 Dose: Not Given Calcium Acetate (Phoslo) 1,334 mg PO WM [facility] Last Admin: 10/30/17 18:29 Dose: 1,334 mg Diphenhydramine HCl (Benadryl) 25 mg PO HS PRN PRN Reason: Insomnia Last Admin: 10/29/17 01:26 Dose: 25 mg Ergocalciferol (Drisdol 50,000 Intl Units Cap) 1 cap PO WED [facility] Last Admin: 10/25/17 15:12 Dose: Not Given Famotidine (Pepcid) 10 mg PO 2200 [facility] Last Admin: 10/29/17 21:54 Dose: 10 mg Fenofibrate (Tricor) 145 mg PO DAILY [facility] Last Admin: 10/30/17 18:29 Dose: 145 mg Hydralazine HCl (Apresoline) 25 mg PO BID [facility] Last Admin: 10/30/17 18:05 Dose: Not Given Hydromorphone HCl (Dilaudid) 0.5 mg IVP Q4H PRN PRN Reason: Pain, severe (8-10) Stop: 11/01/17 17:13 Last Admin: 10/30/17 20:00 Dose: 0.5 mg Micafungin Sodium 100 mg/ (Sodium Chloride) 100 mls @ 100 mls/hr IV DAILY [facility] PRN Reason: Protocol Stop: 11/09/17 12:16 Last Admin: 10/30/17 18:28 Dose: 100 mls/hr Dextrose/Sodium Chloride (Dextrose 5%/0.45% Ns 1000 Ml) 1,000 mls @ 60 mls/hr IV .[id number] [facility] Insulin Human NPH (Humulin N) 20 units SC QPM [facility] Last Admin: 10/30/17 18:03 Dose: Not Given Insulin Human Regular (Humulin R High) 0 units SC ACHS [facility] PRN Reason: Protocol Last Admin: 10/30/17 16:30 Dose: Not Given Latanoprost (Xalatan Opht) 0 ml OU HS [facility] Last Admin: 10/29/17 21:55 Dose: 2.5 ml Levothyroxine Sodium (Synthroid) 25 mcg PO 0600 [facility] Last Admin: 10/30/17 06:31 Dose: 25 mcg Loratadine (Claritin) 10 mg PO HS [facility] Last Admin: 10/29/17 21:54 Dose: 10 mg Metoprolol Tartrate (Lopressor) 25 mg PO BID [facility] Last Admin: 10/30/17 18:06 Dose: Not Given Montelukast Sodium (Singulair) 10 mg PO HS [facility] Last Admin: 10/29/17 21:55 Dose: 10 mg Multivitamins (Thera Tab) 1 tab PO DAILY [facility] Last Admin: 10/30/17 18:31 Dose: 1 tab Salmeterol Xinafoate /Fluticaso [Advair Hfa 230-21] 1 puff IH BID [facility] Last Admin: 10/30/17 18:06 Dose: Not Given [id number] Ethyl Esters (Lovaza) 2 gm PO BID [facility] Last Admin: 10/30/17 18:30 Dose: 2 gm Ondansetron HCl (Zofran Inj) 4 mg IVP Q6H PRN PRN Reason: Nausea/Vomiting Last Admin: 08/06/18 06:48 Dose: 4 mg Oxycodone/Acetaminophen (Percocet 5/325 Mg Tab) 1 tab PO BID PRN PRN Reason: Pain, moderate (4-7) Stop: 10/31/17 17:12 Last Admin: 10/29/17 21:53 Dose: 1 tab Pregabalin (Lyrica) 50 mg PO HS [facility] Last Admin: 10/29/17 21:53 Dose: 50 mg Sevelamer HCl (Renagel) 1,600 mg PO WM [facility] Last Admin: 10/30/17 18:29 Dose: 1,600 mg Sodium Chloride ([place] Nasal [place]) 0 ml NS Q2H PRN PRN Reason: Nasal congestion Tamsulosin HCl (Flomax) 0.4 mg PO HS [facility] Last Admin: 10/29/17 21:53 Dose: 0.4 mg Ticagrelor (Brilinta) 90 mg PO BID [facility] Last Admin: 10/19/17 17:13 Dose: 90 mg - Labs Labs: 10/30/17 09:30 10/30/17 09:30 PT 19.8 SECONDS (9.4-12.5) H 10/29/17 06:30 INR 1.70 10/29/17 06:30 APTT 32.6 Seconds (25.1-36.5) 10/29/17 06:30 - Constitutional Appears: No Acute Distress, Chronically Ill - Head Exam Head Exam: NORMAL INSPECTION - ENT Exam ENT Exam: Mucous Membranes Moist - Neck Exam Neck Exam: absent: Meningismus - Respiratory Exam Respiratory Exam: Decreased Breath Sounds - Cardiovascular Exam Cardiovascular Exam: +S1, +S2 - GI/Abdominal Exam GI & Abdominal Exam: Soft. 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 diff. associated diarrhea ESRD on HD DM obesity CAD S/P PCI retinopathy history of pancreatitis Plan continue Mycamine for C. glabrata in the blood day 13; reviewed Ophtho exam - no endophthalmitis - will need 2 weeks of antifungal therapy for BKA today will continue to follow clinically
[2017-10-31] MEDS: Insulin Human NPH 1 UNITS/0.01 ML SC SCH (17:22)
--- NOTE | 2017-10-31 19:01 | PN ---
Copied To: Jarred Escalera MD Attending MD: Jarred Escalera MD DATE: 10/31/2017 PULMONARY PROGRESS REFERRING PHYSICIAN: Gallo Potter MD. SUBJECTIVE: The patient is lying in the bed, head at 45 degrees, having snack. Family is at bedside. Night was unremarkable. Did well in therapy today side of the bed. Still has a pain in the right lower extremity area, but controllable with pain medication. No cough. No sputum production. No nausea. No vomiting. No diarrhea. OBJECTIVE: GENERAL: In no acute distress. VITAL SIGNS: Temperature is 98, heart rate 62, respiratory rate is 18, blood pressure 150/43, pulse ox 99% on nasal cannula. HEENT: Moist mucous membrane. Crowded airway. Mallampati score is 4. NECK: Supple. No JVD. LUNGS: Have a fair airflow with rhonchi. HEART: S1 and S2. ABDOMEN: Soft, nontender, no organomegaly. EXTREMITY: No edema of the left leg. Right BKA has dressing. NEUROLOGICAL: Awake and alert. Follows simple command. MEDICATIONS: He is on hydralazine 25 mg twice a day, aspirin 81 mg daily, Benadryl is at bedtime, Brilinta 90 mg twice a day, Brovana inhaled twice a day, Claritin 10 mg daily, Dilaudid 0.5 mg every 4 hours p.r.n., vitamin D 50,000 units weekly, DuoNeb every 6 hours p.r.n., Flomax 0.4 mg daily, insulin coverage, Lipitor 40 mg daily, metoprolol tartrate 25 mg twice a day, Lovaza is 2 g twice a day, Lyrica 50 mg daily, micafungin 100 mg daily, Pepcid 10 mg daily, Percocet 5/325 one tab every 12 hours p.r.n., Pulmicort inhaled twice a day, Renagel is with the meals, Singulair 10 mg daily, Synthroid 25 mcg daily, multivitamins daily, Tricor 145 mg daily, Zofran p.r.n. basis. LABORATORY DATA: Shows hemoglobin 8.3, hematocrit 25.6, WBC 8, platelet count is 133. Sodium 138, potassium , chloride 100, bicarbonate count 30, BUN 22, creatinine 4.9, glucose 213, calcium is 7.8, phosphorus 3.1, AST 67, ALT 32, alk phos is 73, albumin is 2.7. IMPRESSION AND PLAN: Diabetes with end-organ damage, peripheral vascular disease, right lower extremity nonhealing ulcer requiring finally below-knee amputation, cardiomyopathy, pulmonary hypertension, chronic lung disease, sleep apnea syndrome, renal failure, dialysis dependent, thrombocytopenia, status post fungemia. Pulmonary point of view, doing okay. Spoke to family at bedside. All the questions answered. Keep head at 45 degrees. Sleep apnea precaution. Avoid sedation. Gastric prophylaxis. Antibiotics as per Infectious Diseases. Physical therapy. Thank you and we will follow with you. Jarred Escalera MD
[2017-11-01] MEDS: HYDROmorphone 0.5 mg/0.5 ml ISec IVP PRN ×3 (03:19→14:22)
[2017-11-01] MEDS: Levothyroxine 25 MCG TAB PO SCH (06:57)
--- NOTE | 2017-11-01 07:13 | CP.PCM.PN ---
Subjective - Date & Time of Evaluation Date of Evaluation: 11/01/17 Time of Evaluation: 06:25 - Subjective Subjective: Lying in bed,awake, no distress Reason for consultation and follow up: Cardiac pre-op evaluation and risk stratification for right foot below knee amputation surgery. history of coronary artery disease with multiple stents, PPM , ESRD on hemodialysis, heparin induced thrombocytopenia, status post below knee amputation of right leg. Seen and examined by me and Dr. Erickson Objective - Vital Signs/Intake and Output Vital Signs (last 24 hours): Temp Pulse Resp BP Pulse Ox 98.5 F 59 L 20 116/38 L 99 11/01/17 05:59 11/01/17 05:59 11/01/17 05:59 11/01/17 05:59 11/01/17 05:59 Intake and Output: 11/01/17 11/01/17 06:59 18:59 Intake Total 480 Output Total 0 Balance 480 - Medications Medications: Current Medications Albuterol/Ipratropium (Duoneb 3 Mg/0.5 Mg (3 Ml) Ud) 3 ml IH [id number] PRN PRN Reason: Shortness of Breath Last Admin: 10/30/17 07:16 Dose: 3 ml Arformoterol Tartrate (Brovana) 15 mcg IH [id number] REPLAC[facility] Last Admin: 10/31/17 19:57 Dose: 15 mcg Aspirin (Aspirin Chewable) 81 mg PO DAILY [facility] Last Admin: 10/31/17 17:22 Dose: 81 mg Atorvastatin Calcium (Lipitor) 40 mg PO DIN [facility] Last Admin: 10/31/17 17:25 Dose: 40 mg Bacitracin (Bacitracin) 1 ea TOP BID [facility] Last Admin: 10/31/17 10:49 Dose: Not Given Budesonide (Pulmicort Respules) 0.5 mg IH [id number] [facility]PL[facility] Last Admin: 10/31/17 19:57 Dose: 0.5 mg Diphenhydramine HCl (Benadryl) 25 mg PO HS PRN PRN Reason: Insomnia Last Admin: 10/31/17 21:38 Dose: 25 mg Ergocalciferol (Drisdol 50,000 Intl Units Cap) 1 cap PO WED [facility] Last Admin: 10/25/17 15:12 Dose: Not Given Famotidine (Pepcid) 10 mg PO 2200 [facility] Last Admin: 10/31/17 21:37 Dose: 10 mg Fenofibrate (Tricor) 145 mg PO DAILY [facility] Last Admin: 10/31/17 10:49 Dose: 145 mg Hydralazine HCl (Apresoline) 25 mg PO BID [facility] Last Admin: 10/31/17 17:22 Dose: 25 mg Hydromorphone HCl (Dilaudid) 0.5 mg IVP Q4H PRN PRN Reason: Pain, severe (8-10) Stop: 11/01/17 17:13 Last Admin: 11/01/17 03:19 Dose: 0.5 mg Micafungin Sodium 100 mg/ (Sodium Chloride) 100 mls @ 100 mls/hr IV DAILY [facility] PRN Reason: Protocol Stop: 11/09/17 12:16 Last Admin: 10/31/17 10:00 Dose: 100 mls/hr Insulin Human NPH (Humulin N) 25 units SC QPM [facility] Last Admin: 10/31/17 17:22 Dose: Not Given Insulin Human Regular (Humulin R High) 0 units SC ACHS [facility] PRN Reason: Protocol Last Admin: 10/31/17 17:23 Dose: 2 units Latanoprost (Xalatan Opht) 0 ml OU HS [facility] Last Admin: 10/31/17 21:39 Dose: 2.5 ml Levothyroxine Sodium (Synthroid) 25 mcg PO 0600 [facility] Last Admin: 11/01/17 06:57 Dose: 25 mcg Loratadine (Claritin) 10 mg PO HS [facility] Last Admin: 10/31/17 21:39 Dose: 10 mg Metoprolol Tartrate (Lopressor) 25 mg PO BID [facility] Last Admin: 10/31/17 17:22 Dose: 25 mg Montelukast Sodium (Singulair) 10 mg PO HS [facility] Last Admin: 10/31/17 21:37 Dose: 10 mg Multivitamins (Thera Tab) 1 tab PO DAILY [facility] Last Admin: 10/31/17 10:48 Dose: 1 tab [id number]-[id number] Ethyl Esters (Lovaza) 2 gm PO BID [facility] Last Admin: 10/31/17 17:22 Dose: 2 gm Ondansetron HCl (Zofran Inj) 4 mg IVP Q6H PRN PRN Reason: Nausea/Vomiting Last Admin: 10/23/17 06:48 Dose: 4 mg Pregabalin (Lyrica) 50 mg PO HS [facility] Last Admin: 10/31/17 21:37 Dose: 50 mg Sevelamer HCl (Renagel) 1,600 mg PO WM [facility] Last Admin: 10/31/17 17:22 Dose: 1,600 mg Sodium Chloride ([place] Nasal [place]) 0 ml NS Q2H PRN PRN Reason: Nasal congestion Tamsulosin HCl (Flomax) 0.4 mg PO HS [facility] Last Admin: 10/31/17 21:37 Dose: 0.4 mg Ticagrelor (Brilinta) 90 mg PO BID [facility] Last Admin: 10/31/17 17:22 Dose: 90 mg - Labs Labs: 10/31/17 06:00 10/31/17 06:00 PT 19.8 SECONDS (9.4-12.5) H 10/29/17 06:30 INR 1.70 10/29/17 06:30 APTT 32.6 Seconds (25.1-36.5) 10/29/17 06:30 - Constitutional Appears: No Acute Distress - Eye Exam Eye Exam: Normal appearance - Respiratory Exam Respiratory Exam: Decreased Breath Sounds, NORMAL BREATHING PATTERN - Cardiovascular Exam Cardiovascular Exam: +S1, +S2 Additional comments: PPM - GI/Abdominal Exam GI & Abdominal Exam: Soft, Normal Bowel Sounds - Exam Additional comments: hemodialysis 3x a week - Extremities Exam Additional comments: right below knee amputation left AV shunt positive bruit - Neurological Exam Neurological Exam: Alert, Awake, Oriented x3 - Psychiatric Exam Psychiatric exam: Normal Affect - Skin Skin Exam: Intact, Warm Assessment and Plan - Assessment and Plan (Free Text) Assessment: A 52 year old make known to service who came in to the ER due to worsening non healing wound of the right foot. Patient was recently got discharged from [facility] which he underwent amputation of right foot transmetatarsal, stablized and transferred to [facility]. History of coronary artery disease with multiple stents, NSTEMI, ESRD on hemodialysis, peripheral arterial disease, insulin dependent diabetes mellitus, diabetic neuropathy, diabetic retinopathy,PPM for sinus junctional rhythm symptomatic.subdural hematoma post fall, resistant to Plavix, on Brilinta and Aspirin but discontinued due to surgery. He had also fungicemia,LASHAWN done to rule out endocarditis and results no evidence of vegetations. ID on consult and on antibiotics, low platelet count and positive for Heparin induced thrombocytopenia and started on Argatroban.Transferred to ICU for monitoring. Hematology on consult and follow up. Stabilized and now transferred to telemetry then to Med/Surg unit. Status Post right below knee amputation. Plan: feeling good, no distress Clinically improved, no appetite, Stable post right below knee amputation Controlled blood pressure and heart rate Stable cardiac status On hemodialysis today H/H 8.3/25.6, monitor and consider transfusing below 8.0 On IV antibiotics per ID On contact isolation Physical therapy Continue current treatment Continue current medications Will follow up Plan and treatment discussed with Dr. Erickson
[2017-11-01] MEDS: Budesonide 0.5 mg/2 ml Inhal Susp UD IH SCH ×2 (07:36→20:35)
[2017-11-01] MEDS: Albuterol-Ipratrop 3 mg / 0.5 (3 ml) UD IH PRN (07:37)
[2017-11-01] MEDS: Insulin Reg-HIGH-Coverage SC SCH ×4 (08:30→22:12)
--- NOTE | 2017-11-01 08:46 | CP.PCM.PN ---
Addendum entered and electronically signed by Asia Aguila DO 11/01/17 12:47 : will give 1u pRBC on the floor Original Note: <Asia Aguila - Last Filed: 11/01/17 12:17> Subjective - Date & Time of Evaluation Date of Evaluation: 11/01/17 Time of Evaluation: 08:42 - Subjective Subjective: PGY-[address] Potter Pt tolerated sitting by bedside yesterday. Complain of cough. L middle finger slightly painful only when pressed hard. No other acute complaints Objective - Vital Signs/Intake and Output Vital Signs (last 24 hours): Temp Pulse Resp BP Pulse Ox 98.5 F 59 L 20 116/38 L 99 11/01/17 06:00 11/01/17 06:00 11/01/17 06:00 11/01/17 06:00 11/01/17 06:00 Intake and Output: 11/01/17 11/01/17 06:59 18:59 Intake Total 480 Output Total 0 Balance 480 - Medications Medications: Current Medications Albuterol/Ipratropium (Duoneb 3 Mg/0.5 Mg (3 Ml) Ud) 3 ml IH [id number] PRN PRN Reason: Shortness of Breath Last Admin: 11/01/17 07:37 Dose: 3 ml Arformoterol Tartrate (Brovana) 15 mcg IH [id number] [facility] Last Admin: 10/31/17 19:57 Dose: 15 mcg Aspirin (Aspirin Chewable) 81 mg PO DAILY [facility] Last Admin: 10/31/17 17:22 Dose: 81 mg Atorvastatin Calcium (Lipitor) 40 mg PO DIN [facility] Last Admin: 10/31/17 17:25 Dose: 40 mg Bacitracin (Bacitracin) 1 ea TOP BID [facility] Last Admin: 10/31/17 10:49 Dose: Not Given Budesonide (Pulmicort Respules) 0.5 mg IH [id number] [facility] Last Admin: 11/01/17 07:36 Dose: 0.5 mg Diphenhydramine HCl (Benadryl) 25 mg PO HS PRN PRN Reason: Insomnia Last Admin: 10/31/17 21:38 Dose: 25 mg Ergocalciferol (Drisdol 50,000 Intl Units Cap) 1 cap PO WED [facility] Last Admin: 10/25/17 15:12 Dose: Not Given Famotidine (Pepcid) 10 mg PO 2200 [facility] Last Admin: 10/31/17 21:37 Dose: 10 mg Fenofibrate (Tricor) 145 mg PO DAILY [facility] Last Admin: 10/31/17 10:49 Dose: 145 mg Hydralazine HCl (Apresoline) 25 mg PO BID [facility] Last Admin: 10/31/17 17:22 Dose: 25 mg Hydromorphone HCl (Dilaudid) 0.5 mg IVP Q4H PRN PRN Reason: Pain, severe (8-10) Stop: 11/01/17 17:13 Last Admin: 11/01/17 08:31 Dose: 0.5 mg Micafungin Sodium 100 mg/ (Sodium Chloride) 100 mls @ 100 mls/hr IV DAILY [facility] PRN Reason: Protocol Stop: 11/09/17 12:16 Last Admin: 10/31/17 10:00 Dose: 100 mls/hr Insulin Human NPH (Humulin N) 25 units SC QPM [facility] Last Admin: 10/31/17 17:22 Dose: Not Given Insulin Human Regular (Humulin R High) 0 units SC ACHS [facility] PRN Reason: Protocol Last Admin: 11/01/17 08:30 Dose: Not Given Latanoprost (Xalatan Opht) 0 ml OU HS [facility] Last Admin: 10/31/17 21:39 Dose: 2.5 ml Levothyroxine Sodium (Synthroid) 25 mcg PO 0600 [facility] Last Admin: 11/01/17 06:57 Dose: 25 mcg Loratadine (Claritin) 10 mg PO HS [facility] Last Admin: 10/31/17 21:39 Dose: 10 mg Metoprolol Tartrate (Lopressor) 25 mg PO BID [facility] Last Admin: 10/31/17 17:22 Dose: 25 mg Montelukast Sodium (Singulair) 10 mg PO HS [facility] Last Admin: 10/31/17 21:37 Dose: 10 mg Multivitamins (Thera Tab) 1 tab PO DAILY [facility] Last Admin: 10/31/17 10:48 Dose: 1 tab Sachr-6-[id number] Ethyl Esters (Lovaza) 2 gm PO BID [facility] Last Admin: 10/31/17 17:22 Dose: 2 gm Ondansetron HCl (Zofran Inj) 4 mg IVP Q6H PRN PRN Reason: Nausea/Vomiting Last Admin: 10/23/17 06:48 Dose: 4 mg Pregabalin (Lyrica) 50 mg PO HS [facility] Last Admin: 10/31/17 21:37 Dose: 50 mg Sevelamer HCl (Renagel) 1,600 mg PO WM [facility] Last Admin: 10/31/17 17:22 Dose: 1,600 mg Sodium Chloride ([place] Nasal Crewe) 0 ml NS Q2H PRN PRN Reason: Nasal congestion Tamsulosin HCl (Flomax) 0.4 mg PO HS [facility] Last Admin: 10/31/17 21:37 Dose: 0.4 mg Ticagrelor (Brilinta) 90 mg PO BID [facility] Last Admin: 10/31/17 17:22 Dose: 90 mg - Labs Labs: 10/31/17 06:00 10/31/17 06:00 PT 19.8 SECONDS (9.4-12.5) H 10/29/17 06:30 INR 1.70 10/29/17 06:30 APTT 32.6 Seconds (25.1-36.5) 10/29/17 06:30 - Constitutional Appears: No Acute Distress - Head Exam Head Exam: ATRAUMATIC, NORMAL INSPECTION, NORMOCEPHALIC - Eye Exam Eye Exam: EOMI, Normal appearance, PERRL Pupil Exam: NORMAL ACCOMODATION - ENT Exam ENT Exam: Mucous Membranes Moist - Neck Exam Additional comments: supple - Respiratory Exam Respiratory Exam: Clear to Ausculation Bilateral. absent: Rales, Rhonchi, Wheezes - Cardiovascular Exam Cardiovascular Exam: REGULAR RHYTHM, +S1, +S2 - GI/Abdominal Exam GI & Abdominal Exam: Soft, Tenderness, Normal Bowel Sounds. absent: Guarding, Rigid - Extremities Exam Extremities Exam: Normal Capillary Refill. absent: Calf Tenderness (L), Pedal Edema Additional comments: RLE stump dressing d/c/i. drain attached - Back Exam Back Exam: absent: CVA tenderness (L), CVA tenderness (R) - Neurological Exam Neurological Exam: Alert, Awake, Oriented x3 - Psychiatric Exam Psychiatric exam: Normal Affect, Normal Mood - Skin Skin Exam: Dry, Warm Assessment and Plan - Assessment and Plan (Free Text) Plan: Mr Berger, 52 M recently s/p transmetatarsal amputation of the right foot () due to wet gangrene to the right foot and bone exposure. He is on Dual antiplatelet for recent cardiac stent in May. His RLE stump is not healing, possibly because he is a vasculopath and he weight bear despite warning. Due to the non-healing wound due to poor perfusion, he was scheduled for R BKA. The surgery was delayed twice because he developed fungemia on zyvox, merem, micafungin. 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 He was transferred to ICU for agatroban but developed GI bleed. Since agatroban is held, no longer need ICU, and he transferred to telemetry. Now off ASA, brilinta, heparin SC, agatroban. He underwent BKA on 10/30/17. 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 - restarted ASA, plavix Dry gangrene, L middle finger - bacitracin. 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 Serotonin release assy negative. Equivacal result Fungemia (10/16). First negative bottle on 10/19 - Had ruled out endopthalmitis by opthalmologist - Echo showed EF 55. RVSP 49. Aortic cusp calcified cannot r/o veg. No sig changes to echo 1 month ago. - LASHAWN no vegetation in pacemaker lead. - For fungemia, mycafungin, day __/___. Stopped Merem & Linezolid (x 6 day) for possible cause of low platelet Anemia (baseline 8-9), s/p 5u RBC - Anemia of chronic disease and due to ESRD, asymptomatic HTN/PVD - hydralazine GI bleed, due to thrombocytopenia and agatroban -- resolved - Hb stable at 9. - EGD showed supermucosal tear and colonoscopy showed stool, no active bleed. tolerated diet. CAD s/p 2 YORDY in LAD (06/13/17) on dual-antiplatelet, CHF, pacemaker (metronic) - Continue metoprolol, lipitor, fenofibrate, lovaza. ASA/Brilinta on hold. RENATA; COPD; severe pulmonary HTN Coughs - cannot tolerate cpap - HOB 45, Duoneb PRN, brovana, budesonide, montelikast, ocean spray; Advair not available in hospital - For coughs, guafenassin. claritin for allergy DM_2__, peripheral neuropathy - Increase humulin N to 25 HS - ISSS-high Hx CVA with L residual weakness ESRD due to HTN/DM, with Anemia, Hyperphosphatemia, Secondary Hyperparathyroidism - HD MWF - continue Vit D2, multivitamin, sevelamer. d/c phoslo For Glucoma, bimatoprost For insomnia, benadryl HS prn For hypothyroidism, synthroid 25 Flomax for Bph Prophylaxis: high risk of GI stress ulcer due to bleed/fungemia. On low dose pepcid. Off anticoagulant due to GI bleed. SCD on L leg. Moxifloxacin and PCN allergy Discharge planning: Surgery cleared him to Acute Rehab. D/C midline when discharge. No need to have further antibiotics per ID Consult: Renan Figueroa, Dre, Lali Villanueva Rau, Anabelle, Cyndee Access: L AV fistula. R midline s/r/d/w Dr. Potter <Gallo Potter S - Last Filed: 11/01/17 21:23> Objective - Vital Signs/Intake and Output Vital Signs (last 24 hours): Temp Pulse Resp BP Pulse Ox 98.5 F 96 H 18 139/51 L 98 11/01/17 19:41 11/01/17 19:41 11/01/17 19:41 11/01/17 19:41 11/01/17 14:00 Intake and Output: 11/01/1718 18:59 06:59 Intake Total 25 350 Balance 25 350 - Medications Medications: Current Medications Albuterol/Ipratropium (Duoneb 3 Mg/0.5 Mg (3 Ml) Ud) 3 ml IH [id number] PRN PRN Reason: Shortness of Breath Last Admin: 11/01/17 07:37 Dose: 3 ml Arformoterol Tartrate (Brovana) 15 mcg IH [id number] [facility] Last Admin: 11/01/17 20:35 Dose: Not Given Aspirin (Aspirin Chewable) 81 mg PO DAILY [facility] Last Admin: 11/01/17 14:08 Dose: Not Given Atorvastatin Calcium (Lipitor) 40 mg PO DIN [facility] Last Admin: 11/01/17 18:42 Dose: Not Given Bacitracin (Bacitracin) 1 ea TOP BID [facility] Last Admin: 11/01/17 18:12 Dose: Not Given Budesonide (Pulmicort Respules) 0.5 mg IH [id number] [facility] Last Admin: 11/01/17 20:35 Dose: Not Given Diphenhydramine HCl (Benadryl) 25 mg PO HS PRN PRN Reason: Insomnia Last Admin: 10/31/17 21:38 Dose: 25 mg Ergocalciferol (Drisdol 50,000 Intl Units Cap) 1 cap PO WED [facility] Last Admin: 11/01/17 10:00 Dose: Not Given Fenofibrate (Tricor) 145 mg PO DAILY [facility] Last Admin: 11/01/17 10:00 Dose: Not Given Guaifenesin (Mucinex La) 600 mg PO BID [facility] Last Admin: 11/01/17 18:40 Dose: 600 mg Hydralazine HCl (Apresoline) 25 mg PO BID [facility] Last Admin: 11/01/17 18:11 Dose: Not Given Micafungin Sodium 100 mg/ (Sodium Chloride) 100 mls @ 100 mls/hr IV DAILY [facility] PRN Reason: Protocol Stop: 11/09/17 12:16 Last Admin: 11/01/17 14:21 Dose: 100 mls/hr Insulin Human NPH (Humulin N) 25 units SC QPM [facility] Last Admin: 11/01/17 18:42 Dose: Not Given Insulin Human Regular (Humulin R High) 0 units SC ACHS [facility] PRN Reason: Protocol Last Admin: 11/01/17 18:46 Dose: Not Given Latanoprost (Xalatan Opht) 0 ml OU HS [facility] Last Admin: 10/31/17 21:39 Dose: 2.5 ml Levothyroxine Sodium (Synthroid) 25 mcg PO 0600 [facility] Last Admin: 11/01/17 06:57 Dose: 25 mcg Loratadine (Claritin) 10 mg PO HS [facility] Last Admin: 10/31/17 21:39 Dose: 10 mg Metoprolol Tartrate (Lopressor) 25 mg PO BID [facility] Last Admin: 11/01/17 18:15 Dose: Not Given Montelukast Sodium (Singulair) 10 mg PO HS [facility] Last Admin: 10/31/17 21:37 Dose: 10 mg Multivitamins (Thera Tab) 1 tab PO DAILY [facility] Last Admin: 11/01/17 10:00 Dose: Not Given Orxeu-4-Grev Ethyl Esters (Lovaza) 2 gm PO BID [facility] Last Admin: 11/01/17 18:40 Dose: 2 gm Ondansetron HCl (Zofran Inj) 4 mg IVP Q6H PRN PRN Reason: Nausea/Vomiting Last Admin: 10/23/17 06:48 Dose: 4 mg Oxycodone/Acetaminophen (Percocet 5/325 Mg Tab) 1 tab PO BID PRN PRN Reason: Pain, severe (8-10) Stop: 11/04/17 16:53 Pantoprazole Sodium (Protonix Ec Tab) 20 mg PO 0600 [facility] Pregabalin (Lyrica) 50 mg PO [facility] Last Admin: 10/31/17 21:37 Dose: 50 mg Sevelamer HCl (Renagel) 1,600 mg PO WM [facility] Last Admin: 11/01/17 18:40 Dose: 1,600 mg Sodium Chloride ([place] Nasal Crewe) 0 ml NS Q2H PRN PRN Reason: Nasal congestion Tamsulosin HCl (Flomax) 0.4 mg PO [facility] Last Admin: 10/31/17 21:37 Dose: 0.4 mg Ticagrelor (Brilinta) 90 mg PO BID [facility] Last Admin: 11/01/17 18:40 Dose: 90 mg - Labs Labs: 11/01/17 09:10 11/01/17 09:10 PT 19.8 SECONDS (9.4-12.5) H 10/29/17 06:30 INR 1.70 10/29/17 06:30 APTT 32.6 Seconds (25.1-36.5) 10/29/17 06:30 Assessment and Plan - Assessment and Plan (Free Text) Plan: Pt seen and examined. I have reviewed the note of the medical records library professor and agree with it. I have discussed the assessment and plan with the resident. I have reviewed the patient's labs and medications. Pt is s/p BKA. He is going to get 1 U of PRBC. He will be going to acute rehab. Continue with HD.
[2017-11-01 09:32] LABS: BASO # 0.01 K/mm3 (0.0-2.0); BASO % 0.1 % (0.0-3.0); EOS # 0.1 (0.0-0.7); EOS % 1.3 % (1.5-5.0); GRAN # 5.38 (1.4-6.5); GRAN % 67.8 % (50.0-68.0); HEMOGLOBIN 7.9 g/dL (14.0-18.0); LYMPH # 1.7 (1.2-3.4); LYMPH % 20.8 % (22.0-35.0); MEAN CORPUSCULAR HEMOGLOBIN 29.5 pg (25.0-35.0); MEAN CORPUSCULAR HGB CONC 32.4 g/dl (31.0-37.0); MEAN PLATELET VOLUME 11.1 fl (7.0-11.0); MONO # 0.8 (0.1-0.6); RBC 2.68 10^6/uL (3.5-6.1); RED CELL DISTRIBUTION WIDTH 18.6 % (11.5-14.5); WHITE BLOOD COUNT 7.9 10^3/ul (4.5-11.0)
[2017-11-01 09:42] LABS: ALBUMIN 2.6 g/dL (3.0-4.8)
[2017-11-01 09:43] LABS: ALB/GLOB RATIO 0.7 (1.1-1.8)
[2017-11-01] MEDS: Omega-3-Acid Ethyl Esters 1 GM Cap PO SCH ×2 (10:00→18:40)
[2017-11-01] MEDS: Multivitamin Therapeutic Tab PO SCH (10:00)
[2017-11-01] MEDS: guaiFENesin 600 mg ER Tab PO SCH ×2 (10:00→18:40)
[2017-11-01] MEDS: Ergocalciferol 50,000 Intl Units Cap PO SCH (10:00)
[2017-11-01] MEDS: Bacitracin 500 Units/gm Oint Foilpak UD TOP SCH ×2 (10:08→18:12)
--- NOTE | 2017-11-01 11:55 | PN ---
Copied To: Jaspreet Forbes MD Attending MD: Jaspreet Forbes MD DATE: 11/01/2017 SUBJECTIVE: The patient is in bed, in no acute distress, was seen earlier this morning. He had been complaining of cough. No fevers and no chills. PHYSICAL EXAMINATION: VITAL SIGNS: On exam, temperature is 98, blood pressure is 116/30, respiratory rate of 18. HEENT: Unremarkable. NECK: Supple. LUNGS: Have decreased breath sounds. HEART: Normal S1, S2. ABDOMEN: Soft, nontender. LABORATORY DATA: Reveals hemoglobin is 8 and WBC count is 8 and platelets of 133. Chemistries are noted. ASSESSMENT AND PLAN: A 52-year-old male with Guerline glabrata fungemia due to a peripherally inserted central catheter line. No endophthalmitis as per Ophthalmology. No evidence of endocarditis as per transesophageal echocardiography, status post removal of peripherally inserted central catheter line and currently on Mycamine, day #14. We will complete 14 days of therapy. The patient is status post [id number] amputation. Review of orders reveals the patient to have Mycamine to be active and review of microbiology reveals the blood cultures are negative from 10/19/2017. Jaspreet Forbes MD
--- NOTE | 2017-11-01 12:42 | CP.PCM.PN ---
Subjective - Date & Time of Evaluation Date of Evaluation: 11/01/17 Time of Evaluation: 09:00 - Subjective Subjective: Surgery: Dr. Urrutia Pt seen examined. POD#2 from R BKA. Pt states he's feeling well and his pain is well controlled. He admits to working with physical therapy. Denies any complaints at this time. Objective - Vital Signs/Intake and Output Vital Signs (last 24 hours): Temp Pulse Resp BP Pulse Ox 98.5 F 59 L 20 116/38 L 99 11/01/17 06:00 11/01/17 06:00 11/01/17 06:00 11/01/17 06:00 11/01/17 06:00 Intake and Output: 11/01/17 11/01/17 06:59 18:59 Intake Total 480 Output Total 0 Balance 480 - Medications Medications: Current Medications Albuterol/Ipratropium (Duoneb 3 Mg/0.5 Mg (3 Ml) Ud) 3 ml IH [id number] PRN PRN Reason: Shortness of Breath Last Admin: 11/01/17 07:37 Dose: 3 ml Arformoterol Tartrate (Brovana) 15 mcg IH [id number] [facility] Last Admin: 10/31/17 19:57 Dose: 15 mcg Aspirin (Aspirin Chewable) 81 mg PO DAILY [facility] Last Admin: 10/31/17 17:22 Dose: 81 mg Atorvastatin Calcium (Lipitor) 40 mg PO DIN [facility] Last Admin: 10/31/17 17:25 Dose: 40 mg Bacitracin (Bacitracin) 1 ea TOP BID [facility] Last Admin: 10/31/17 10:49 Dose: Not Given Budesonide (Pulmicort Respules) 0.5 mg IH [id number] [facility] Last Admin: 11/01/17 07:36 Dose: 0.5 mg Diphenhydramine HCl (Benadryl) 25 mg PO HS PRN PRN Reason: Insomnia Last Admin: 10/31/17 21:38 Dose: 25 mg Ergocalciferol (Drisdol 50,000 Intl Units Cap) 1 cap PO WED [facility] Last Admin: 10/25/17 15:12 Dose: Not Given Fenofibrate (Tricor) 145 mg PO DAILY [facility] Last Admin: 10/31/17 10:49 Dose: 145 mg Guaifenesin (Mucinex La) 600 mg PO BID [facility] Hydralazine HCl (Apresoline) 25 mg PO BID [facility] Last Admin: 10/31/17 17:22 Dose: 25 mg Hydromorphone HCl (Dilaudid) 0.5 mg IVP Q4H PRN PRN Reason: Pain, severe (8-10) Stop: 11/01/17 17:13 Last Admin: 11/01/17 08:31 Dose: 0.5 mg Micafungin Sodium 100 mg/ (Sodium Chloride) 100 mls @ 100 mls/hr IV DAILY [facility] PRN Reason: Protocol Stop: 11/09/17 12:16 Last Admin: 10/31/17 10:00 Dose: 100 mls/hr Insulin Human NPH (Humulin N) 25 units SC QPM [facility] Last Admin: 10/31/17 17:22 Dose: Not Given Insulin Human Regular (Humulin R High) 0 units SC ACHS [facility] PRN Reason: Protocol Last Admin: 11/01/17 08:30 Dose: Not Given Latanoprost (Xalatan Opht) 0 ml OU HS [facility] Last Admin: 10/31/17 21:39 Dose: 2.5 ml Levothyroxine Sodium (Synthroid) 25 mcg PO 0600 [facility] Last Admin: 11/01/17 06:57 Dose: 25 mcg Loratadine (Claritin) 10 mg PO HS [facility] Last Admin: 10/31/17 21:39 Dose: 10 mg Metoprolol Tartrate (Lopressor) 25 mg PO BID [facility] Last Admin: 10/31/17 17:22 Dose: 25 mg Montelukast Sodium (Singulair) 10 mg PO HS [facility] Last Admin: 10/31/17 21:37 Dose: 10 mg Multivitamins (Thera Tab) 1 tab PO DAILY [facility] Last Admin: 10/31/17 10:48 Dose: 1 tab Jruzq-8-Zeaf Ethyl Esters (Lovaza) 2 gm PO BID [facility] Last Admin: 10/31/17 17:22 Dose: 2 gm Ondansetron HCl (Zofran Inj) 4 mg IVP Q6H PRN PRN Reason: Nausea/Vomiting Last Admin: 10/23/17 06:48 Dose: 4 mg Pantoprazole Sodium (Protonix Ec Tab) 20 mg PO 0600 [facility] Pregabalin (Lyrica) 50 mg PO HS [facility] Last Admin: 10/31/17 21:37 Dose: 50 mg Sevelamer HCl (Renagel) 1,600 mg PO [facility] Last Admin: 10/31/17 17:22 Dose: 1,600 mg Sodium Chloride ([place] Nasal [place]) 0 ml NS Q2H PRN PRN Reason: Nasal congestion Tamsulosin HCl (Flomax) 0.4 mg PO HS [facility] Last Admin: 10/31/17 21:37 Dose: 0.4 mg Ticagrelor (Brilinta) 90 mg PO BID [facility] Last Admin: 10/31/17 17:22 Dose: 90 mg - Labs Labs: 11/01/17 09:10 11/01/17 09:10 PT 19.8 SECONDS (9.4-12.5) H 10/29/17 06:30 INR 1.70 10/29/17 06:30 APTT 32.6 Seconds (25.1-36.5) 10/29/17 06:30 - Constitutional Appears: Well, No Acute Distress - Head Exam Head Exam: ATRAUMATIC - ENT Exam ENT Exam: Mucous Membranes Moist - Respiratory Exam Respiratory Exam: NORMAL BREATHING PATTERN - Cardiovascular Exam Cardiovascular Exam: RRR - GI/Abdominal Exam GI & Abdominal Exam: Soft - Extremities Exam Additional comments: R leg s/p BKA, dressing C/D/I with rina in place. Minimal serosang fluid in rina - Neurological Exam Neurological Exam: Alert, Awake, Oriented x3 - Skin Skin Exam: Dry, Warm Assessment and Plan - Assessment and Plan (Free Text) Assessment: 52M s/p R BKA for PVD & gangrene of R foot; POD#2 Plan: - continue knee immobilizer - Monitor rina output - continue working with PT - pt clear for DC to rehab from surgical standpoint - d/w Dr. Schwarz covering for Dr. Renan Mejia
[2017-11-01] MEDS: Arformoterol 15 mcg/2 ml Inh Sol IH SCH ×2 (13:14→20:35)
[2017-11-01] MEDS: Micafungin 100 MG in Sodium Chloride 0.9% 100 ML IV SCH (14:21)
--- NOTE | 2017-11-01 15:13 | PN ---
Copied To: Jarred Escalera MD Attending MD: Jarred Escalera MD DATE: 11/01/2017 PULMONARY PROGRESS NOTE REFERRING PHYSICIAN: Gallo Potter MD. SUBJECTIVE: He is lying in the bed, head at 45 degrees. Night was unremarkable. Did not use CPAP/BiPAP, but has mild cough. Feels better with nebulizer treatment. No nausea. No vomiting. No diarrhea. Mild right stump discomfort. OBJECTIVE: GENERAL: In no acute distress. VITAL SIGNS: Temperature is 98, heart rate is 61, respiratory rate is 20, blood pressure , pulse ox 98% on nasal cannula. HEENT: Moist mucous membrane. Crowded airway. NECK: Supple. No JVD. LUNGS: Have a fair airflow with few rhonchi. HEART: S1 and S2. ABDOMEN: Soft, nontender, no organomegaly. EXTREMITY: Right stump area is dressed. Left leg, no edema. NEUROLOGICAL: Awake, alert, follows simple command. MEDICATIONS: He is on hydralazine 25 mg twice a day, aspirin 81 mg daily, bacitracin ointment to affected area twice a day, Benadryl 25 mg at bedtime p.r.n., Brilinta 90 mg twice a day, Brovana inhaled twice a day, Claritin 10 mg daily, Dilaudid 0.5 mg every 4 hours p.r.n., vitamin D 50,000 units weekly, DuoNeb every 6 hours p.r.n., Flomax 0.4 mg daily, insulin coverage, Lipitor 40 mg daily, metoprolol tartrate 25 mg twice a day, Lovaza is at 2 g twice a day, Lyrica 50 mg at bedtime, micafungin 100 mg daily, Mucinex LA 600 mg twice a day, Protonix 40 mg daily, Pulmicort inhaled twice a day, Renagel with the meals, Singulair 10 mg daily, Synthroid 25 mcg daily, multivitamins daily, Tricor 145 mg daily, Zofran p.r.n. basis. LABORATORY DATA: Shows hemoglobin 7.9, hematocrit 24.4, WBC 7.9, platelet count is 114. Sodium 139, potassium 2.8, chloride 103, bicarbonate 27, BUN 28, creatinine 4.7, glucose 129, calcium is 8, phosphorus is 3.5, AST 54, ALT 31, alk phos is 66. Albumin is 2.6. IMPRESSION AND PLAN: Diabetes with end-organ damage, peripheral vascular disease, status post right below-knee amputation, cardiomyopathy, pulmonary hypertension, chronic lung disease, sleep apnea syndrome, renal failure, dialysis dependent, improving thrombocytopenia, status post fungemia. Pulmonary point of view, doing okay. Continue bronchodilator. Keep head at 45 degrees. Gastric prophylaxis. May use sequential compression device on the left lower extremity. Thank you and we will follow with you. Jarred Escalera MD
[2017-11-01] MEDS ORDERED: Oxycodone/Acetaminophen 5/325 mg Tab PO PRN (16:52)
[2017-11-01] MEDS: Insulin Human NPH 1 UNITS/0.01 ML SC SCH (18:42)
[2017-11-01] MEDS: Latanoprost 2.5 ml Opht Soln OU SCH (21:47)
[2017-11-01] MEDS ORDERED: HYDROmorphone 0.5 mg/0.5 ml ISec IVP STA (22:08)
[2017-11-01] MEDS ORDERED: Morphine 4 mg/ml ISec IVP STA (22:22)
[2017-11-02] MEDS: Levothyroxine 25 MCG TAB PO SCH (05:35)
[2017-11-02] MEDS ORDERED: Pantoprazole 20 mg EC Tab PO SCH (06:00)
--- NOTE | 2017-11-02 06:51 | CP.PCM.PN ---
Subjective - Date & Time of Evaluation Date of Evaluation: 11/02/17 Time of Evaluation: 06:15 - Subjective Subjective: Easily awaken.Lying in bed, no distress,feels good Reason for consultation and follow up: Cardiac pre-op evaluation and risk stratification for right foot below knee amputation surgery. history of coronary artery disease with multiple stents, PPM , ESRD on hemodialysis, heparin induced thrombocytopenia, status post below knee amputation of right leg. Seen and examined by me and Dr. Erickson Objective - Vital Signs/Intake and Output Vital Signs (last 24 hours): Temp Pulse Resp BP Pulse Ox 98.5 F 96 H 18 139/51 L 98 11/01/17 19:41 11/01/17 19:41 11/01/17 19:41 11/01/17 19:41 11/01/17 14:00 Intake and Output: 11/01/17 11/02/17 18:59 06:59 Intake Total 25 470 Balance 25 470 - Medications Medications: Current Medications Albuterol/Ipratropium (Duoneb 3 Mg/0.5 Mg (3 Ml) Ud) 3 ml IH [id number] PRN PRN Reason: Shortness of Breath Last Admin: 11/01/17 07:37 Dose: 3 ml Arformoterol Tartrate (Brovana) 15 mcg IH [id number] [facility] Last Admin: 11/01/17 20:35 Dose: Not Given Aspirin (Aspirin Chewable) 81 mg PO DAILY [facility] Last Admin: 11/01/17 14:08 Dose: Not Given Atorvastatin Calcium (Lipitor) 40 mg PO DIN [facility] Last Admin: 11/01/17 18:42 Dose: Not Given Bacitracin (Bacitracin) 1 ea TOP BID [facility] Last Admin: 11/01/17 18:12 Dose: Not Given Budesonide (Pulmicort Respules) 0.5 mg IH [id number] [facility] Last Admin: 11/01/17 20:35 Dose: Not Given Diphenhydramine HCl (Benadryl) 25 mg PO HS PRN PRN Reason: Insomnia Last Admin: 11/01/17 22:44 Dose: 25 mg Ergocalciferol (Drisdol 50,000 Intl Units Cap) 1 cap PO WED [facility] Last Admin: 11/01/17 10:00 Dose: Not Given Fenofibrate (Tricor) 145 mg PO DAILY [facility] Last Admin: 11/01/17 10:00 Dose: Not Given Guaifenesin (Mucinex La) 600 mg PO BID [facility] Last Admin: 11/01/17 18:40 Dose: 600 mg Hydralazine HCl (Apresoline) 25 mg PO BID [facility] Last Admin: 11/01/17 18:11 Dose: Not Given Micafungin Sodium 100 mg/ (Sodium Chloride) 100 mls @ 100 mls/hr IV DAILY [facility] PRN Reason: Protocol Stop: 11/09/17 12:16 Last Admin: 11/01/17 14:21 Dose: 100 mls/hr Insulin Human NPH (Humulin N) 25 units SC QPM [facility] Last Admin: 11/01/17 18:42 Dose: Not Given Insulin Human Regular (Humulin R High) 0 units SC ACHS [facility] PRN Reason: Protocol Last Admin: 11/01/17 22:12 Dose: Not Given Latanoprost (Xalatan Opht) 0 ml OU HS [facility] Last Admin: 11/01/17 21:47 Dose: 2.5 ml Levothyroxine Sodium (Synthroid) 25 mcg PO 0600 [facility] Last Admin: 11/02/17 05:35 Dose: 25 mcg Loratadine (Claritin) 10 mg PO HS [facility] Last Admin: 11/01/17 21:44 Dose: 10 mg Metoprolol Tartrate (Lopressor) 25 mg PO BID [facility] Last Admin: 11/01/17 18:15 Dose: Not Given Montelukast Sodium (Singulair) 10 mg PO HS [facility] Last Admin: 11/01/17 21:45 Dose: 10 mg Multivitamins (Thera Tab) 1 tab PO DAILY [facility] Last Admin: 11/01/17 10:00 Dose: Not Given [id number] Ethyl Esters (Lovaza) 2 gm PO BID [facility] Last Admin: 11/01/17 18:40 Dose: 2 gm Ondansetron HCl (Zofran Inj) 4 mg IVP Q6H PRN PRN Reason: Nausea/Vomiting Last Admin: 10/23/17 06:48 Dose: 4 mg Oxycodone/Acetaminophen (Percocet 5/325 Mg Tab) 1 tab PO BID PRN PRN Reason: Pain, severe (8-10) Stop: 11/04/17 16:53 Pantoprazole Sodium (Protonix Ec Tab) 20 mg PO 0600 [facility] Last Admin: 11/02/17 05:35 Dose: 20 mg Pregabalin (Lyrica) 50 mg PO HS [facility] Last Admin: 11/01/17 21:45 Dose: 50 mg Sevelamer HCl (Renagel) 1,600 mg PO WM [facility] Last Admin: 11/01/17 18:40 Dose: 1,600 mg Sodium Chloride ([place] Nasal [place]) 0 ml NS Q2H PRN PRN Reason: Nasal congestion Tamsulosin HCl (Flomax) 0.4 mg PO HS [facility] Last Admin: 11/01/17 21:44 Dose: 0.4 mg Ticagrelor (Brilinta) 90 mg PO BID [facility] Last Admin: 11/01/17 18:40 Dose: 90 mg - Labs Labs: 11/01/17 09:10 11/01/17 09:10 PT 19.8 SECONDS (9.4-12.5) H 10/29/17 06:30 INR 1.70 10/29/17 06:30 APTT 32.6 Seconds (25.1-36.5) 10/29/17 06:30 - Constitutional Appears: No Acute Distress - Eye Exam Eye Exam: Normal appearance - ENT Exam ENT Exam: Mucous Membranes Moist - Respiratory Exam Respiratory Exam: Decreased Breath Sounds, Clear to Ausculation Bilateral, NORMAL BREATHING PATTERN - Cardiovascular Exam Cardiovascular Exam: +S1, +S2 Additional comments: PPM - GI/Abdominal Exam GI & Abdominal Exam: Soft, Normal Bowel Sounds - Exam Additional comments: hemodialysis 3x a week - Extremities Exam Additional comments: right leg immobilizer left AV shunt positive bruit - Neurological Exam Neurological Exam: Alert, Awake, Oriented x3 - Psychiatric Exam Psychiatric exam: Normal Affect - Skin Skin Exam: Dry, Warm Assessment and Plan - Assessment and Plan (Free Text) Assessment: A 52 year old make known to service who came in to the ER due to worsening non healing wound of the right foot. Patient was recently got discharged from [facility] which he underwent amputation of right foot transmetatarsal, stablized and transferred to [facility]. History of coronary artery disease with multiple stents, NSTEMI, ESRD on hemodialysis, peripheral arterial disease, insulin dependent diabetes mellitus, diabetic neuropathy, diabetic retinopathy,PPM for sinus junctional rhythm symptomatic.subdural hematoma post fall, resistant to Plavix, on Brilinta and Aspirin but discontinued due to surgery. He had also fungicemia,LASHAWN done to rule out endocarditis and results no evidence of vegetations. ID on consult and on antibiotics, low platelet count and positive for Heparin induced thrombocytopenia and started on Argatroban.Transferred to ICU for monitoring. Hematology on consult and follow up. Stabilized and now transferred to telemetry then to Med/Surg unit. Status Post right below knee amputation. Plan: Stable cardiac status Status post right below knee amputation Controlled blood pressure and heart rate On hemodialysis MWF Glucose controlled Latest H/H 7.9/24.4 Transfuse 2 units PRBC with hemodialysis On IV antibiotics per ID On contact isolation Physical therapy Continue current treatment Continue current medications Will follow up Plan and treatment discussed with Dr. Erickson
[2017-11-02 07:04] LABS: BASO # 0.03 K/mm3 (0.0-2.0); BASO % 0.5 % (0.0-3.0); EOS # 0.2 (0.0-0.7); EOS % 3.3 % (1.5-5.0); GRAN # 3.72 (1.4-6.5); HEMOGLOBIN 8.9 g/dL (14.0-18.0); LYMPH # 1.1 (1.2-3.4); LYMPH % 18.8 % (22.0-35.0); MEAN CELL VOLUME 91.2 fl (80.0-105.0); MEAN CORPUSCULAR HGB CONC 32.8 g/dl (31.0-37.0); MEAN PLATELET VOLUME 11.4 fl (7.0-11.0); MONO # 0.8 (0.1-0.6); MONO % 13.4 % (1.0-6.0); RBC 2.97 10^6/uL (3.5-6.1); RED CELL DISTRIBUTION WIDTH 18.6 % (11.5-14.5); WHITE BLOOD COUNT 5.8 10^3/ul (4.5-11.0)
[2017-11-02 07:28] LABS: ALB/GLOB RATIO 0.6 (1.1-1.8); ALBUMIN 2.4 g/dL (3.0-4.8); CALCIUM 7.7 mg/dL (8.4-10.5)
[2017-11-02 07:39] VITALS: TEMP 97.8; O2SAT 100
--- NOTE | 2017-11-02 07:40 | CP.PCM.PN ---
Subjective - Date & Time of Evaluation Date of Evaluation: 11/02/17 Time of Evaluation: 07:30 - Subjective Subjective: General Surgery progress note for Dr Urrutia. Pt seen and examined this morning, POD#3. Reports pain in the right leg which is well controlled. Pt reports tolerating diet. Pt reports no new complaints. Objective - Vital Signs/Intake and Output Vital Signs (last 24 hours): Temp Pulse Resp BP Pulse Ox 98.5 F 96 H 18 139/51 L 98 11/01/17 19:41 11/01/17 19:41 11/01/17 19:41 11/01/17 19:41 11/01/17 14:00 Intake and Output: 11/02/17 11/02/17 06:59 18:59 Intake Total 470 Balance 470 - Medications Medications: Current Medications Albuterol/Ipratropium (Duoneb 3 Mg/0.5 Mg (3 Ml) Ud) 3 ml IH [id number] PRN PRN Reason: Shortness of Breath Last Admin: 11/01/17 07:37 Dose: 3 ml Arformoterol Tartrate (Brovana) 15 mcg IH [id number] [facility] Last Admin: 11/01/17 20:35 Dose: Not Given Aspirin (Aspirin Chewable) 81 mg PO DAILY [facility] Last Admin: 11/01/17 14:08 Dose: Not Given Atorvastatin Calcium (Lipitor) 40 mg PO DIN [facility] Last Admin: 11/01/17 18:42 Dose: Not Given Bacitracin (Bacitracin) 1 ea TOP BID [facility] Last Admin: 11/01/17 18:12 Dose: Not Given Budesonide (Pulmicort Respules) 0.5 mg IH [id number] [facility] Last Admin: 11/01/17 20:35 Dose: Not Given Diphenhydramine HCl (Benadryl) 25 mg PO HS PRN PRN Reason: Insomnia Last Admin: 11/01/17 22:44 Dose: 25 mg Ergocalciferol (Drisdol 50,000 Intl Units Cap) 1 cap PO WED [facility] Last Admin: 11/01/17 10:00 Dose: Not Given Fenofibrate (Tricor) 145 mg PO DAILY [facility] Last Admin: 11/01/17 10:00 Dose: Not Given Guaifenesin (Mucinex La) 600 mg PO BID [facility] Last Admin: 11/01/17 18:40 Dose: 600 mg Hydralazine HCl (Apresoline) 25 mg PO BID [facility] Last Admin: 11/01/17 18:11 Dose: Not Given Micafungin Sodium 100 mg/ (Sodium Chloride) 100 mls @ 100 mls/hr IV DAILY [facility] PRN Reason: Protocol Stop: 11/09/17 12:16 Last Admin: 11/01/17 14:21 Dose: 100 mls/hr Insulin Human NPH (Humulin N) 25 units SC QPM [facility] Last Admin: 11/01/17 18:42 Dose: Not Given Insulin Human Regular (Humulin R High) 0 units SC ACHS [facility] PRN Reason: Protocol Last Admin: 11/01/17 22:12 Dose: Not Given Latanoprost (Xalatan Opht) 0 ml OU HS [facility] Last Admin: 11/01/17 21:47 Dose: 2.5 ml Levothyroxine Sodium (Synthroid) 25 mcg PO 0600 [facility] Last Admin: 11/02/17 05:35 Dose: 25 mcg Loratadine (Claritin) 10 mg PO HS [facility] Last Admin: 11/01/17 21:44 Dose: 10 mg Metoprolol Tartrate (Lopressor) 25 mg PO BID [facility] Last Admin: 11/01/17 18:15 Dose: Not Given Montelukast Sodium (Singulair) 10 mg PO HS [facility] Last Admin: 11/01/17 21:45 Dose: 10 mg Multivitamins (Thera Tab) 1 tab PO DAILY [facility] Last Admin: 11/01/17 10:00 Dose: Not Given [id number] Ethyl Esters (Lovaza) 2 gm PO BID [facility] Last Admin: 11/01/17 18:40 Dose: 2 gm Ondansetron HCl (Zofran Inj) 4 mg IVP Q6H PRN PRN Reason: Nausea/Vomiting Last Admin: 10/23/17 06:48 Dose: 4 mg Oxycodone/Acetaminophen (Percocet 5/325 Mg Tab) 1 tab PO BID PRN PRN Reason: Pain, severe (8-10) Stop: 11/04/17 16:53 Pantoprazole Sodium (Protonix Ec Tab) 20 mg PO 0600 [facility] Last Admin: 11/02/17 05:35 Dose: 20 mg Pregabalin (Lyrica) 50 mg PO HS [facility] Last Admin: 11/01/17 21:45 Dose: 50 mg Sevelamer HCl (Renagel) 1,600 mg PO WM [facility] Last Admin: 11/01/17 18:40 Dose: 1,600 mg Sodium Chloride ([place] Nasal [place]) 0 ml NS Q2H PRN PRN Reason: Nasal congestion Tamsulosin HCl (Flomax) 0.4 mg PO HS [facility] Last Admin: 11/01/17 21:44 Dose: 0.4 mg Ticagrelor (Brilinta) 90 mg PO BID [facility] Last Admin: 11/01/17 18:40 Dose: 90 mg - Labs Labs: 11/02/17 06:30 11/02/17 06:30 PT 19.8 SECONDS (9.4-12.5) H 10/29/17 06:30 INR 1.70 10/29/17 06:30 APTT 32.6 Seconds (25.1-36.5) 10/29/17 06:30 - Constitutional Appears: No Acute Distress - Head Exam Head Exam: ATRAUMATIC, NORMOCEPHALIC - Eye Exam Eye Exam: EOMI, Normal appearance - ENT Exam ENT Exam: Mucous Membranes Moist - Neck Exam Neck Exam: Full ROM - Respiratory Exam Respiratory Exam: Clear to Ausculation Bilateral, NORMAL BREATHING PATTERN. absent: Accessory Muscle Use, Rhonchi, Wheezes, Respiratory Distress, Stridor - Cardiovascular Exam Cardiovascular Exam: REGULAR RHYTHM, RRR, +S1, +S2. absent: Bradycardia, Tachycardia, Diastolic murmur, Irregular Rhythm, JVD, Murmur - GI/Abdominal Exam GI & Abdominal Exam: Soft, Normal Bowel Sounds. absent: Distended, Firm, Guarding, Rigid, Tenderness - Extremities Exam Extremities Exam: absent: Calf Tenderness Additional comments: s/p right BKA - Back Exam Back Exam: Full ROM, NORMAL INSPECTION. absent: CVA tenderness (L), CVA tenderness (R) - Neurological Exam Neurological Exam: Alert, Awake, Oriented x3 - Psychiatric Exam Psychiatric exam: Normal Affect, Normal Mood - Skin Skin Exam: Dry, Normal Color, Warm Assessment and Plan - Assessment and Plan (Free Text) Assessment: 52M s/p R BKA for PVD & gangrene of R foot; POD#3 Plan: - continue knee immobilizer - remove Dandy drain - continue working with PT - f/u as out pt for staple removal 2-4 weeks - pt clear for DC to rehab from surgical standpoint - d/w Dr Karishma Montoya PGY-1
[2017-11-02] MEDS: Insulin Reg-HIGH-Coverage SC SCH ×2 (08:03→11:36)
--- NOTE | 2017-11-02 08:08 | CP.PCM.DIS ---
<Asia Aguila - Last Filed: 11/02/17 09:08> Provider - Provider Date of Admission: 10/16/17 13:33 Attending physician: Gallo oPtter MD Time Spent in preparation of Discharge (in minutes): 40 Diagnosis - Discharge Diagnosis (1) Acute GI bleeding Status: Acute (2) S/P BKA (below knee amputation) unilateral Status: Acute (3) Fungemia Status: Acute (4) Gangrene Status: Acute (5) Anemia Status: Acute (6) Insomnia Status: Acute (7) Uncontrolled diabetes mellitus Status: Acute (8) Diabetes Status: Chronic (9) ESRD (end stage renal disease) on dialysis Status: Chronic Hospital Course - Lab Results Lab Results: Micro Results 10/24/17 22:23 Stool C. difficile Antigen & Toxin A,B (M - Final 10/23/17 16:53 Naris MRSA Culture (Admit) - Final MRSA NOT DETECTED 10/19/17 11:40 Blood Blood Culture - Final NO GROWTH AFTER 5 DAYS 10/19/17 11:40 Blood Gram Stain - Final TEST NOT PERFORMED 10/19/17 11:00 Blood Blood Culture - Final NO GROWTH AFTER 5 DAYS 10/19/17 11:00 Blood Gram Stain - Final TEST NOT PERFORMED 10/18/17 05:30 Stool C. difficile Antigen & Toxin A,B (M - Final Most Recent Lab Values WBC 5.8 10^3/ul (4.5-11.0) D 11/02/17 06:30 RBC 2.97 10^6/uL (3.5-6.1) L 11/02/17 06:30 Hgb 8.9 g/dL (14.0-18.0) L 11/02/17 06:30 Hct 27.1 % (42.0-52.0) L 11/02/17 06:30 MCV 91.2 fl (80.0-105.0) 11/02/17 06:30 MCH 30.0 pg (25.0-35.0) 11/02/17 06:30 MCHC 32.8 g/dl (31.0-37.0) 11/02/17 06:30 RDW 18.6 % (11.5-14.5) H 11/02/17 06:30 Plt Count 136 10^3/uL (120.0-450.0) 11/02/17 06:30 Manual Plt Count 50 K/mm3 (120-450) L 10/23/17 06:45 MPV 11.4 fl (7.0-11.0) H 11/02/17 06:30 Gran % 64.0 % (50.0-68.0) 11/02/17 06:30 Lymph % (Auto) 18.8 % (22.0-35.0) L 11/02/17 06:30 Mills % (Auto) 13.4 % (1.0-6.0) H 11/02/17 06:30 Eos % (Auto) 3.3 % (1.5-5.0) 11/02/17 06:30 Baso % (Auto) 0.5 % (0.0-3.0) 11/02/17 06:30 Gran # 3.72 (1.4-6.5) 11/02/17 06:30 Lymph # (Auto) 1.1 (1.2-3.4) L 11/02/17 06:30 Mills # (Auto) 0.8 (0.1-0.6) H 11/02/17 06:30 Eos # (Auto) 0.2 (0.0-0.7) 11/02/17 06:30 Baso # (Auto) 0.03 K/mm3 (0.0-2.0) 11/02/17 06:30 Neutrophils % (Manual) 39 % (50.0-70.0) L 10/25/17 06:24 Lymphocytes % (Manual) 43 % (22.0-35.0) H 10/25/17 06:24 Monocytes % (Manual) 11 % (1.0-6.0) H 10/25/17 06:24 Eosinophils % (Manual) 7 % (0.0-3.0) H 10/25/17 06:24 Platelet Evaluation Low (NORMAL) 10/25/17 06:24 PT 19.8 SECONDS (9.4-12.5) H 10/29/17 06:30 INR 1.70 10/29/17 06:30 APTT 32.6 Seconds (25.1-36.5) 10/29/17 06:30 Hep-Yoselin Thrombocytopen 10/21/17 07:30 pO2 148 mm/Hg (30-55) H 10/16/17 13:30 VBG pH 7.42 (7.32-7.43) 10/16/17 13:30 VBG pCO2 48.0 (40-60) 10/16/17 13:30 VBG HCO3 31.1 mmol/l (21-28) H 10/16/17 13:30 VBG Total CO2 32.6 mmol.L (22-28) H 10/16/17 13:30 VBG O2 Sat (Calc) 99.0 % (40-65) H 10/16/17 13:30 VBG Base Excess 5.5 mmol/L (0.0-2.0) H 10/16/17 13:30 VBG Potassium 4.8 mmol/L (3.6-5.2) 10/16/17 13:30 Sodium 134.0 mmol/L (132-148) 10/16/17 13:30 Chloride 103.0 mmol/L (98-107) 10/16/17 13:30 Glucose 139 mg/dl (75-110) H 10/16/17 13:30 Lactate 1.7 mmol/L (0.7-2.1) 10/16/17 13:30 FiO2 21.0 % 10/16/17 13:30 Sodium 137 mmol/L (132-148) 11/02/17 06:30 Potassium 3.7 mmol/L (3.6-5.0) 11/02/17 06:30 Chloride 100 mmol/L (98-107) 11/02/17 06:30 Carbon Dioxide 28 mmol/L (21-33) 11/02/17 06:30 Anion Gap 12 (10-20) 11/02/17 06:30 BUN 26 mg/dL (7-21) H 11/02/17 06:30 Creatinine 4.7 mg/dl (0.8-1.5) H 11/02/17 06:30 Est GFR ( Amer) 16 11/02/17 06:30 Est GFR (Non-Af Amer) 13 11/02/17 06:30 POC Glucose (mg/dL) 165 mg/dL (65-110) H 11/01/17 21:39 Random Glucose 209 mg/dL (70-110) H 11/02/17 06:30 Hemoglobin A1c 6.2 % (4.2-6.5) 10/17/17 08:00 Calcium 7.7 mg/dL (8.4-10.5) L 11/02/17 06:30 Phosphorus 3.9 mg/dL (2.5-4.5) 11/02/17 06:30 Magnesium 2.2 mg/dL (1.7-2.2) 10/16/17 13:30 Iron 140 ug/dL (45-180) 10/17/17 08:00 TIBC 220 ug/dL (261-462) L 10/17/17 08:00 % Saturation 64 % (20-55) H 10/17/17 08:00 Ferritin 659.0 ng/mL 10/17/17 08:00 Total Bilirubin 1.0 mg/dL (0.2-1.3) 11/02/17 06:30 AST 52 U/L (17-59) 11/02/17 06:30 ALT 27 U/L (7-56) 11/02/17 06:30 Alkaline Phosphatase 61 U/L (38-126) 11/02/17 06:30 Troponin I 0.05 ng/mL D 10/17/17 22:51 Total Protein 6.2 g/dL (5.8-8.3) 11/02/17 06:30 Albumin 2.4 g/dL (3.0-4.8) L 11/02/17 06:30 Globulin 3.8 gm/dL 11/02/17 06:30 Albumin/Globulin Ratio 0.6 (1.1-1.8) L 11/02/17 06:30 Triglycerides 77 mg/dL (35-160) 10/17/17 08:00 Cholesterol < 50 mg/dL (130-200) L 10/17/17 08:00 LDL Cholesterol Direct < 30 mg/dL (0-129) 10/17/17 08:00 HDL Cholesterol 19 mg/dL (29-60) L 10/17/17 08:00 UF Heparin Interp Negative (Negative) 10/23/17 05:00 TSH 3rd Generation 8.39 mIU/mL (0.46-4.68) H 10/17/17 08:00 Venous Blood Potassium 4.8 mmol/L (3.6-5.2) 10/16/17 13:30 Stool Occult Blood Positive (NEGATIVE) H 10/23/17 15:30 Fondaparinux ADILENE Result Negative 10/21/17 07:30 ADILENE UFH Low Dose 0.1 2 % Release 10/23/17 05:00 ADILENE UFH Low Dose 0.5 0 % Release 10/23/17 05:00 ADILENE UFH High Dose 100 0 % Release 10/23/17 05:00 Blood Type B POSITIVE 11/01/17 10:50 Antibody Screen Negative 11/01/17 10:50 Crossmatch See Detail 11/01/17 10:50 BBK History Checked Patient has bt 11/01/17 10:50 - Hospital Course Hospital Course: Mr Berger, 52 M recently s/p transmetatarsal amputation of the right foot () due to wet gangrene to the right foot and bone exposure. He was on Dual antiplatelet for recent cardiac stent in May. His RLE stump was not healing, possibly because he is a vasculopath and he weight bear despite warning. Due to the non-healing wound due to poor perfusion, he was scheduled for R BKA. The surgery was delayed twice because he developed fungemia on zyvox, merem, micafungin. 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 He was transferred to ICU for agatroban but developed GI bleed. Since agatroban was held, no longer need ICU, and he was transferred to telemetry, remaining off ASA, brilinta, heparin SC, agatroban. He underwent BKA on 10/30/17. He is transferred to med-surg post-ob. He was resumed ASA and brilinta, no more bleeding episode. Yesterday, he received uPRBC for chronic anemia. RN found pt inhaling volatile substance and pt was "phasing out" for 1 minute, spontaneuos resolved. We counseled pt for cessation substance use and inhalation of volatiles. We change dilaudid to morphine to pain control, and will discharge him on percocet for his propensity to become additive. He finished a complete 14 day course of micafungin for fungemia. Prior to transfer to subacute rehab, will d/c adrianne drain in RLE stump and midline. 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 avoid exposure. Dry gangrene, L middle finger, stable - bacitracin top. 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 Serotonin release assy negative. Equivacal result - follow up with heme outpatient Fungemia (10/16). First negative bottle on 10/19 - Had ruled out endopthalmitis by opthalmologist - Echo showed EF 55. RVSP 49. Aortic cusp calcified cannot r/o veg. No sig changes to echo 1 month ago. - LASHAWN no vegetation in pacemaker lead. - For fungemia, mycafungin, day __15/14___. Stopped Merem & Linezolid (x 6 day) for possible cause of low platelet Anemia (baseline 8-9), s/p 6u RBC - Anemia of chronic disease and due to ESRD, asymptomatic HTN - hydralazine GI bleed, due to thrombocytopenia and agatroban -- resolved - Hb stable - EGD showed supermucosal tear and colonoscopy showed stool, no active bleed. tolerated diet. - f/u GI outpatient CAD s/p 2 YORDY in LAD (06/13/17) on dual-antiplatelet, CHF, pacemaker (metronic) - Continue metoprolol, lipitor, fenofibrate, lovaza, ASA and Brilinta . RENATA; COPD; severe pulmonary HTN Coughs - cannot tolerate cpap - HOB 45, Duoneb PRN, brovana, budesonide, montelikast, ocean spray; Advair not available in hospital - For coughs, guafenassin. claritin for allergy DM_2__, peripheral neuropathy Allergy to aspart, regular insulin - humulin N to 20 HS - ISSS-high Hx CVA with L residual weakness Deconditioning - Rehab ESRD due to HTN/DM, with Anemia, Hyperphosphatemia, Secondary Hyperparathyroidism - HD MWF - continue Vit D2, multivitamin, sevelamer. d/c phoslo For Glucoma, bimatoprost For insomnia, benadryl HS prn For hypothyroidism, synthroid 25 Flomax for Bph Moxifloxacin and PCN allergy Discharge planning: D/C midline when discharge. No need to have further antibiotics per ID. Med rec already done Consult: Renan Figueroa, Dre, Rich, Lali, Jensen, Anabelle, Cyndee Access: L AV fistula. R midline s/r/d/w Dr. Potter Discharge Exam - Head Exam Head Exam: ATRAUMATIC, NORMOCEPHALIC - Eye Exam Eye Exam: EOMI, Normal appearance, PERRL Pupil Exam: NORMAL ACCOMODATION - ENT Exam ENT Exam: Mucous Membranes Moist - Neck Exam Additional comments: supple - Respiratory Exam Respiratory Exam: Clear to PA & Lateral, NORMAL BREATHING PATTERN. absent: Rhonchi, Wheezes, Respiratory Distress - Cardiovascular Exam Cardiovascular Exam: REGULAR RHYTHM, +S1, +S2 - GI/Abdominal Exam GI & Abdominal Exam: Normal Bowel Sounds, Soft, Unremarkable. absent: Distended , Firm, Guarding, Rigid, Tenderness - Extremities Exam Additional comments: R stump dressing d/c/i No tenderness in L LE - Neurological Exam Neurological exam: Alert, CN II-XII Intact, Oriented x3 Additional comments: move all extremities equally, sensation intact - Psychiatric Exam Psychiatric exam: Normal Affect, Normal Mood - Skin Skin Exam: Dry, Warm Discharge Plan - Follow Up Plan Condition: FAIR Disposition: REHAB FACILITY/REHAB UNIT Instructions: Smoking: Not Just Harmful to Your Lungs and Heart, Preventing Falls in the Older Adult, Hemodialysis (DC), Amputation, [id number], Sepsis , Adult (DC), Amputation, Ibssc-yvn-Azhn (DC) Additional Instructions: Strongly recommend to stop inhaling volatile substance. Continue dialysis MWF Follow up with Dr Potter (primary care doctor & environmental services supervisor) within 1 week Follow up with Dr Urrutia (surgeon), and Dr Villanueva (automobile mechanic apprentice) within 1-2 weeks Follow up with Dr Styles (eye doctor) to check for signs of endopthalmitis due to fungemia Follow up with Dr Morris (application internship) for low platelet count Follow up with Dr Escalera (lung doctor) for COPD Follow up with Dr Erickson (lactation nurse) in 4 weeks for recent stent Follow up with Dr Ahn for GI bleed and possibly outpatient scope Referrals: Jarred Erickson MD [Staff Provider] - 4 Week Deborah Villanueva DPM [Staff Provider] - 1 Week Jacquelin Ahn MD [Medical Doctor] - 4 Week Max Styles [Staff Provider] - 2 Week Azalea Morris MD [Staff Provider] - 1 Week Medardo Urrutia MD [Staff Provider] - 1 Week Jarred Escalera MD [Staff Provider] - 4 Week Gallo Potter MD [Family Provider] - <aGllo Potter - Last Filed: 11/02/17 15:33> Provider - Provider Date of Admission: 10/16/17 13:33 Attending physician: Gallo Potter MD Hospital Course - Lab Results Lab Results: Micro Results 10/24/17 22:23 Stool C. difficile Antigen & Toxin A,B (M - Final 10/23/17 16:53 Naris MRSA Culture (Admit) - Final MRSA NOT DETECTED 10/19/17 11:40 Blood Blood Culture - Final NO GROWTH AFTER 5 DAYS 10/19/17 11:40 Blood Gram Stain - Final TEST NOT PERFORMED 10/19/17 11:00 Blood Blood Culture - Final NO GROWTH AFTER 5 DAYS 10/19/17 11:00 Blood Gram Stain - Final TEST NOT PERFORMED 10/18/17 05:30 Stool C. difficile Antigen & Toxin A,B (M - Final Most Recent Lab Values WBC 5.8 10^3/ul (4.5-11.0) D 11/02/17 06:30 RBC 2.97 10^6/uL (3.5-6.1) L 11/02/17 06:30 Hgb 8.9 g/dL (14.0-18.0) L 11/02/17 06:30 Hct 27.1 % (42.0-52.0) L 11/02/17 06:30 MCV 91.2 fl (80.0-105.0) 11/02/17 06:30 MCH 30.0 pg (25.0-35.0) 11/02/17 06:30 MCHC 32.8 g/dl (31.0-37.0) 11/02/17 06:30 RDW 18.6 % (11.5-14.5) H 11/02/17 06:30 Plt Count 136 10^3/uL (120.0-450.0) 11/02/17 06:30 Manual Plt Count 50 K/mm3 (120-450) L 10/23/17 06:45 MPV 11.4 fl (7.0-11.0) H 11/02/17 06:30 Gran % 64.0 % (50.0-68.0) 11/02/17 06:30 Lymph % (Auto) 18.8 % (22.0-35.0) L 11/02/17 06:30 Mills % (Auto) 13.4 % (1.0-6.0) H 11/02/17 06:30 Eos % (Auto) 3.3 % (1.5-5.0) 11/02/17 06:30 Baso % (Auto) 0.5 % (0.0-3.0) 11/02/17 06:30 Gran # 3.72 (1.4-6.5) 11/02/17 06:30 Lymph # (Auto) 1.1 (1.2-3.4) L 11/02/17 06:30 Mills # (Auto) 0.8 (0.1-0.6) H 11/02/17 06:30 Eos # (Auto) 0.2 (0.0-0.7) 11/02/17 06:30 Baso # (Auto) 0.03 K/mm3 (0.0-2.0) 11/02/17 06:30 Neutrophils % (Manual) 39 % (50.0-70.0) L 10/25/17 06:24 Lymphocytes % (Manual) 43 % (22.0-35.0) H 10/25/17 06:24 Monocytes % (Manual) 11 % (1.0-6.0) H 10/25/17 06:24 Eosinophils % (Manual) 7 % (0.0-3.0) H 10/25/17 06:24 Platelet Evaluation Low (NORMAL) 10/25/17 06:24 PT 19.8 SECONDS (9.4-12.5) H 10/29/17 06:30 INR 1.70 10/29/17 06:30 APTT 32.6 Seconds (25.1-36.5) 10/29/17 06:30 Hep-Yoselin Thrombocytopen 10/21/17 07:30 pO2 148 mm/Hg (30-55) H 10/16/17 13:30 VBG pH 7.42 (7.32-7.43) 10/16/17 13:30 VBG pCO2 48.0 (40-60) 10/16/17 13:30 VBG HCO3 31.1 mmol/l (21-28) H 10/16/17 13:30 VBG Total CO2 32.6 mmol.L (22-28) H 10/16/17 13:30 VBG O2 Sat (Calc) 99.0 % (40-65) H 10/16/17 13:30 VBG Base Excess 5.5 mmol/L (0.0-2.0) H 10/16/17 13:30 VBG Potassium 4.8 mmol/L (3.6-5.2) 10/16/17 13:30 Sodium 134.0 mmol/L (132-148) 10/16/17 13:30 Chloride 103.0 mmol/L (98-107) 10/16/17 13:30 Glucose 139 mg/dl (75-110) H 10/16/17 13:30 Lactate 1.7 mmol/L (0.7-2.1) 10/16/17 13:30 FiO2 21.0 % 10/16/17 13:30 Sodium 137 mmol/L (132-148) 11/02/17 06:30 Potassium 3.7 mmol/L (3.6-5.0) 11/02/17 06:30 Chloride 100 mmol/L (98-107) 11/02/17 06:30 Carbon Dioxide 28 mmol/L (21-33) 11/02/17 06:30 Anion Gap 12 (10-20) 11/02/17 06:30 BUN 26 mg/dL (7-21) H 11/02/17 06:30 Creatinine 4.7 mg/dl (0.8-1.5) H 11/02/17 06:30 Est GFR ( Amer) 16 11/02/17 06:30 Est GFR (Non-Af Amer) 13 11/02/17 06:30 POC Glucose (mg/dL) 206 mg/dL (65-110) H 11/02/17 06:51 Random Glucose 209 mg/dL (70-110) H 11/02/17 06:30 Hemoglobin A1c 6.2 % (4.2-6.5) 10/17/17 08:00 Calcium 7.7 mg/dL (8.4-10.5) L 11/02/17 06:30 Phosphorus 3.9 mg/dL (2.5-4.5) 11/02/17 06:30 Magnesium 2.2 mg/dL (1.7-2.2) 10/16/17 13:30 Iron 140 ug/dL (45-180) 10/17/17 08:00 TIBC 220 ug/dL (261-462) L 10/17/17 08:00 % Saturation 64 % (20-55) H 10/17/17 08:00 Ferritin 659.0 ng/mL 10/17/17 08:00 Total Bilirubin 1.0 mg/dL (0.2-1.3) 11/02/17 06:30 AST 52 U/L (17-59) 11/02/17 06:30 ALT 27 U/L (7-56) 11/02/17 06:30 Alkaline Phosphatase 61 U/L (38-126) 11/02/17 06:30 Troponin I 0.05 ng/mL D 10/17/17 22:51 Total Protein 6.2 g/dL (5.8-8.3) 11/02/17 06:30 Albumin 2.4 g/dL (3.0-4.8) L 11/02/17 06:30 Globulin 3.8 gm/dL 11/02/17 06:30 Albumin/Globulin Ratio 0.6 (1.1-1.8) L 11/02/17 06:30 Triglycerides 77 mg/dL (35-160) 10/17/17 08:00 Cholesterol < 50 mg/dL (130-200) L 10/17/17 08:00 LDL Cholesterol Direct < 30 mg/dL (0-129) 10/17/17 08:00 HDL Cholesterol 19 mg/dL (29-60) L 10/17/17 08:00 UF Heparin Interp Negative (Negative) 10/23/17 05:00 TSH 3rd Generation 8.39 mIU/mL (0.46-4.68) H 10/17/17 08:00 Venous Blood Potassium 4.8 mmol/L (3.6-5.2) 10/16/17 13:30 Stool Occult Blood Positive (NEGATIVE) H 10/23/17 15:30 Fondaparinux ADILENE Result Negative 10/21/17 07:30 ADILENE UFH Low Dose 0.1 2 % Release 10/23/17 05:00 ADILENE UFH Low Dose 0.5 0 % Release 10/23/17 05:00 ADILENE UFH High Dose 100 0 % Release 10/23/17 05:00 Blood Type B POSITIVE 11/01/17 10:50 Antibody Screen Negative 11/01/17 10:50 Crossmatch See Detail 11/01/17 10:50 BBK History Checked Patient has bt 11/01/17 10:50 - Hospital Course Hospital Course: Pt seen and examined by me. Medications and labs have been reviewed. I have reviewed the note of the medical residents and agree with the note. Pt is s/p BKA. He feels well. He is waiting to go to acute rehab. Pain is controlled. He is off Abx and anti-fungals. HD continuing with no issues.
[2017-11-02] MEDS: Budesonide 0.5 mg/2 ml Inhal Susp UD IH SCH (08:22)
[2017-11-02] MEDS: Arformoterol 15 mcg/2 ml Inh Sol IH SCH (08:25)
[2017-11-02] MEDS ORDERED: Morphine 2 mg/ml ISec IVP PRN (08:44)
--- NOTE | 2017-11-02 09:39 | RAD ---
Date of service: 11/01/2017 HISTORY: SOB COMPARISON: 10/16/2017 FINDINGS: LUNGS: No active pulmonary disease. PLEURA: No significant pleural effusion identified, no pneumothorax apparent. CARDIOVASCULAR: Moderate cardiomegaly. Mild vascular congestion OSSEOUS STRUCTURES: No significant abnormalities. VISUALIZED UPPER ABDOMEN: Normal. OTHER FINDINGS: Dual lead pacemaker IMPRESSION: No active disease.
[2017-11-02] MEDS: guaiFENesin 600 mg ER Tab PO SCH (10:07)
--- NOTE | 2017-11-02 10:40 | CP.PCM.PN ---
<Funmi Krause - Last Filed: 11/02/17 10:36> Subjective - Date & Time of Evaluation Date of Evaluation: 11/02/17 Time of Evaluation: 09:00 - Subjective Subjective: Podiatry Progress note: Dr. Quevedo 52M s/p right BKA seen and evaluated for left foot superficial wound. Patient is AAOx3 and in NAD. Denies of any acute overnight events. Reports of mild pain on the right side. No other pedal complains on the left. Denies F/N/V/C/SOB/CP/ headache. Objective - Vital Signs/Intake and Output Vital Signs (last 24 hours): Temp Pulse Resp BP Pulse Ox 97.8 F 79 18 149/42 L 100 11/02/17 06:00 11/02/17 06:00 11/02/17 06:00 11/02/17 06:00 11/02/17 06:00 Intake and Output: 11/02/17 11/02/17 06:59 18:59 Intake Total 470 Balance 470 - Medications Medications: Current Medications Albuterol/Ipratropium (Duoneb 3 Mg/0.5 Mg (3 Ml) Ud) 3 ml IH [id number] PRN PRN Reason: Shortness of Breath Last Admin: 11/01/17 07:37 Dose: 3 ml Arformoterol Tartrate (Brovana) 15 mcg IH [id number] [facility] Last Admin: 11/02/17 08:25 Dose: Not Given Aspirin (Aspirin Chewable) 81 mg PO DAILY [facility] Last Admin: 11/01/17 14:08 Dose: Not Given Atorvastatin Calcium (Lipitor) 40 mg PO DIN [facility] Last Admin: 11/01/17 18:42 Dose: Not Given Bacitracin (Bacitracin) 1 ea TOP BID [facility] Last Admin: 11/01/17 18:12 Dose: Not Given Budesonide (Pulmicort Respules) 0.5 mg IH [id number] [facility] Last Admin: 11/02/17 08:22 Dose: 0.5 mg Diphenhydramine HCl (Benadryl) 25 mg PO HS PRN PRN Reason: Insomnia Last Admin: 11/01/17 22:44 Dose: 25 mg Ergocalciferol (Drisdol 50,000 Intl Units Cap) 1 cap PO WED [facility] Last Admin: 11/01/17 10:00 Dose: Not Given Fenofibrate (Tricor) 145 mg PO DAILY [facility] Last Admin: 11/01/17 10:00 Dose: Not Given Guaifenesin (Mucinex La) 600 mg PO BID [facility] Last Admin: 11/01/17 18:40 Dose: 600 mg Hydralazine HCl (Apresoline) 25 mg PO BID [facility] Last Admin: 11/01/17 18:11 Dose: Not Given Micafungin Sodium 100 mg/ (Sodium Chloride) 100 mls @ 100 mls/hr IV DAILY [facility] PRN Reason: Protocol Stop: 11/09/17 12:16 Last Admin: 11/01/17 14:21 Dose: 100 mls/hr Insulin Human NPH (Humulin N) 25 units SC QPM [facility] Last Admin: 11/01/17 18:42 Dose: Not Given Insulin Human Regular (Humulin R High) 0 units SC ACHS [facility] PRN Reason: Protocol Last Admin: 11/02/17 08:03 Dose: 4 units Latanoprost (Xalatan Opht) 0 ml OU HS [facility] Last Admin: 11/01/17 21:47 Dose: 2.5 ml Levothyroxine Sodium (Synthroid) 25 mcg PO 0600 [facility] Last Admin: 11/02/17 05:35 Dose: 25 mcg Loratadine (Claritin) 10 mg PO HS [facility] Last Admin: 11/01/17 21:44 Dose: 10 mg Metoprolol Tartrate (Lopressor) 25 mg PO BID [facility] Last Admin: 11/01/17 18:15 Dose: Not Given Montelukast Sodium (Singulair) 10 mg PO HS [facility] Last Admin: 11/01/17 21:45 Dose: 10 mg Morphine Sulfate (Morphine) 2 mg IVP Q6H PRN PRN Reason: Pain, moderate (4-7) Multivitamins (Thera Tab) 1 tab PO DAILY [facility] Last Admin: 11/01/17 10:00 Dose: Not Given Ymtxp-4-Rjen Ethyl Esters (Lovaza) 2 gm PO BID [facility] Last Admin: 11/01/17 18:40 Dose: 2 gm Ondansetron HCl (Zofran Inj) 4 mg IVP Q6H PRN PRN Reason: Nausea/Vomiting Last Admin: 10/23/17 06:48 Dose: 4 mg Oxycodone/Acetaminophen (Percocet 5/325 Mg Tab) 1 tab PO BID PRN PRN Reason: Pain, severe (8-10) Stop: 11/04/17 16:53 Pantoprazole Sodium (Protonix Ec Tab) 20 mg PO 0600 [facility] Last Admin: 11/02/17 05:35 Dose: 20 mg Pregabalin (Lyrica) 50 mg PO HS [facility] Last Admin: 11/01/17 21:45 Dose: 50 mg Sevelamer HCl (Renagel) 1,600 mg PO WM [facility] Last Admin: 11/02/17 08:06 Dose: 1,600 mg Sodium Chloride ([place] Nasal [place]) 0 ml NS Q2H PRN PRN Reason: Nasal congestion Tamsulosin HCl (Flomax) 0.4 mg PO HS [facility] Last Admin: 11/01/17 21:44 Dose: 0.4 mg Ticagrelor (Brilinta) 90 mg PO BID [facility] Last Admin: 11/01/17 18:40 Dose: 90 mg - Labs Labs: 11/02/17 06:30 11/02/17 06:30 PT 19.8 SECONDS (9.4-12.5) H 10/29/17 06:30 INR 1.70 10/29/17 06:30 APTT 32.6 Seconds (25.1-36.5) 10/29/17 06:30 - Constitutional Appears: Well, Non-toxic, No Acute Distress - Extremities Exam Additional comments: RLE focused exam: Vasc: DP/PT pulses faintly palpable b/l. CFT to dorsal foot < 3 seconds. Minimal edema noted to TMA site Derm: Superficial hyperkeatotic roofed epidermal layer sub-metatarsal head one, no opening, no tunneling, no undermining, no probe to bone, no active drainage, no malodor, no erythema, no clinical suspicion of active infection Neuro: Epicritic and protective sensation grossly absent - Neurological Exam Neurological Exam: Alert, Awake, Oriented x3 - Psychiatric Exam Psychiatric exam: Normal Affect, Normal Mood Assessment and Plan - Assessment and Plan (Free Text) Assessment: 52M s/p right BKA evaluated for left foot preulcerative lesion (Lea 0) Plan: Patient seen and evaluated with Dr. Quevedo Chart and labs were reviewed - Afebrile, absent leukocytosis Wound dressed with xeroform, DSD No plan for surgical intervention from podiatry standpoint Stable from podiatry standpoint Podiatry will continue to follow while patient in house <Adria Quevedo - Last Filed: 11/03/17 17:04> Objective - Vital Signs/Intake and Output Vital Signs (last 24 hours): Temp Pulse Resp BP Pulse Ox 97.8 F 67 20 113/50 L 100 11/02/17 14:00 11/02/17 14:00 11/02/17 14:00 11/02/17 14:00 11/02/17 14:00 - Labs Labs: 11/02/17 06:30 11/02/17 06:30 PT 19.8 SECONDS (9.4-12.5) H 10/29/17 06:30 INR 1.70 10/29/17 06:30 APTT 32.6 Seconds (25.1-36.5) 10/29/17 06:30 Attending/Attestation - Attestation I have personally seen and examined this patient.: Yes I have fully participated in the care of the patient.: Yes I have reviewed all pertinent clinical information, including history, physical exam and plan: Yes
[2017-11-02] MEDS: Bacitracin 500 Units/gm Oint Foilpak UD TOP SCH (11:08)
[2017-11-02] MEDS: Omega-3-Acid Ethyl Esters 1 GM Cap PO SCH (11:40)
[2017-11-02] MEDS: Multivitamin Therapeutic Tab PO SCH (11:41)
[2017-11-02] MEDS: Micafungin 100 MG in Sodium Chloride 0.9% 100 ML IV SCH (11:43)
--- NOTE | 2017-11-02 11:58 | CP.PCM.PN ---
Subjective - Date & Time of Evaluation Date of Evaluation: 11/02/17 Time of Evaluation: 10:15 - Subjective Subjective: S&E at bedside, chart reviewed,patient have some post op pain to right foot amputation, but no distress. No c/o N/V or abdominal pain. Denies fever, chills , have BM, no diarrhea or overt GI bleeding. Tolerating oral intake. Had 1 unit of PRBC yesterday. Objective - Vital Signs/Intake and Output Vital Signs (last 24 hours): Temp Pulse Resp BP Pulse Ox 97.8 F 79 18 149/42 L 100 11/02/17 06:00 11/02/17 06:00 11/02/17 06:00 11/02/17 06:00 11/02/17 06:00 Intake and Output: 11/02/17 11/02/17 06:59 18:59 Intake Total 470 Balance 470 - Medications Medications: Current Medications Albuterol/Ipratropium (Duoneb 3 Mg/0.5 Mg (3 Ml) Ud) 3 ml IH [id number] PRN PRN Reason: Shortness of Breath Last Admin: 11/01/17 07:37 Dose: 3 ml Arformoterol Tartrate (Brovana) 15 mcg IH [id number] [facility] Last Admin: 11/02/17 08:25 Dose: Not Given Aspirin (Aspirin Chewable) 81 mg PO DAILY [facility] Last Admin: 11/02/17 11:08 Dose: 81 mg Atorvastatin Calcium (Lipitor) 40 mg PO DIN [facility] Last Admin: 11/01/17 18:42 Dose: Not Given Bacitracin (Bacitracin) 1 ea TOP BID [facility] Last Admin: 11/02/17 11:08 Dose: Not Given Budesonide (Pulmicort Respules) 0.5 mg IH [id number] [facility] Last Admin: 11/02/17 08:22 Dose: 0.5 mg Diphenhydramine HCl (Benadryl) 25 mg PO HS PRN PRN Reason: Insomnia Last Admin: 11/01/17 22:44 Dose: 25 mg Ergocalciferol (Drisdol 50,000 Intl Units Cap) 1 cap PO WED [facility] Last Admin: 11/01/17 10:00 Dose: Not Given Fenofibrate (Tricor) 145 mg PO DAILY [facility] Last Admin: 11/01/17 10:00 Dose: Not Given Guaifenesin (Mucinex La) 600 mg PO BID [facility] Last Admin: 11/02/17 10:07 Dose: 600 mg Hydralazine HCl (Apresoline) 25 mg PO BID [facility] Last Admin: 11/01/17 18:11 Dose: Not Given Micafungin Sodium 100 mg/ (Sodium Chloride) 100 mls @ 100 mls/hr IV DAILY [facility] PRN Reason: Protocol Stop: 11/09/17 12:16 Last Admin: 11/01/17 14:21 Dose: 100 mls/hr Insulin Human NPH (Humulin N) 25 units SC QPM [facility] Last Admin: 11/01/17 18:42 Dose: Not Given Insulin Human Regular (Humulin R High) 0 units SC ACHS [facility] PRN Reason: Protocol Last Admin: 11/02/17 08:03 Dose: 4 units Latanoprost (Xalatan Opht) 0 ml OU HS [facility] Last Admin: 11/01/17 21:47 Dose: 2.5 ml Levothyroxine Sodium (Synthroid) 25 mcg PO 0600 [facility] Last Admin: 11/02/17 05:35 Dose: 25 mcg Loratadine (Claritin) 10 mg PO HS [facility] Last Admin: 11/01/17 21:44 Dose: 10 mg Metoprolol Tartrate (Lopressor) 25 mg PO BID [facility] Last Admin: 11/02/17 10:07 Dose: 25 mg Montelukast Sodium (Singulair) 10 mg PO HS [facility] Last Admin: 11/01/17 21:45 Dose: 10 mg Morphine Sulfate (Morphine) 2 mg IVP Q6H PRN PRN Reason: Pain, moderate (4-7) Multivitamins (Thera Tab) 1 tab PO DAILY [facility] Last Admin: 11/01/17 10:00 Dose: Not Given [id number]-[id number] Ethyl Esters (Lovaza) 2 gm PO BID [facility] Last Admin: 11/01/17 18:40 Dose: 2 gm Ondansetron HCl (Zofran Inj) 4 mg IVP Q6H PRN PRN Reason: Nausea/Vomiting Last Admin: 10/23/17 06:48 Dose: 4 mg Oxycodone/Acetaminophen (Percocet 5/325 Mg Tab) 1 tab PO BID PRN PRN Reason: Pain, severe (8-10) Stop: 11/04/17 16:53 Pantoprazole Sodium (Protonix Ec Tab) 20 mg PO 0600 [facility] Last Admin: 11/02/17 05:35 Dose: 20 mg Pregabalin (Lyrica) 50 mg PO HS [facility] Last Admin: 11/01/17 21:45 Dose: 50 mg Sevelamer HCl (Renagel) 1,600 mg PO WM [facility] Last Admin: 11/02/17 08:06 Dose: 1,600 mg Sodium Chloride ([place] Nasal [place]) 0 ml NS Q2H PRN PRN Reason: Nasal congestion Tamsulosin HCl (Flomax) 0.4 mg PO HS [facility] Last Admin: 11/01/17 21:44 Dose: 0.4 mg Ticagrelor (Brilinta) 90 mg PO BID [facility] Last Admin: 11/01/17 18:40 Dose: 90 mg - Labs Labs: 11/02/17 06:30 11/02/17 06:30 PT 19.8 SECONDS (9.4-12.5) H 10/29/17 06:30 INR 1.70 10/29/17 06:30 APTT 32.6 Seconds (25.1-36.5) 10/29/17 06:30 - Constitutional Appears: No Acute Distress - Head Exam Head Exam: NORMOCEPHALIC - Eye Exam Eye Exam: Normal appearance. absent: Scleral icterus - ENT Exam ENT Exam: Mucous Membranes Moist - Neck Exam Neck Exam: Normal Inspection - Respiratory Exam Respiratory Exam: NORMAL BREATHING PATTERN. absent: Respiratory Distress - Cardiovascular Exam Cardiovascular Exam: +S1, +S2 - GI/Abdominal Exam GI & Abdominal Exam: Soft, Normal Bowel Sounds. absent: Guarding, Tenderness, Rebound - Extremities Exam Extremities Exam: absent: Calf Tenderness Additional comments: right foot amputation, dressing dry and intact, OUMOU drain with scant serosanguenous drain. 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 Discussed w/ Arleen Blood covering Dr. Ahn.
--- NOTE | 2017-11-02 14:40 | CP.PCM.PN ---
Subjective - Date & Time of Evaluation Date of Evaluation: 11/02/17 Time of Evaluation: 14:36 - Subjective Subjective: Midline removal Objective - Vital Signs/Intake and Output Vital Signs (last 24 hours): Temp Pulse Resp BP Pulse Ox 97.8 F 79 18 150/45 L 100 11/02/17 06:00 11/02/17 12:05 11/02/17 06:00 11/02/17 12:05 11/02/17 06:00 Intake and Output: 11/02/17 11/02/17 06:59 18:59 Intake Total 470 Balance 470 - Medications Medications: Current Medications Albuterol/Ipratropium (Duoneb 3 Mg/0.5 Mg (3 Ml) Ud) 3 ml IH [id number] PRN PRN Reason: Shortness of Breath Last Admin: 11/01/17 07:37 Dose: 3 ml Arformoterol Tartrate (Brovana) 15 mcg IH [id number] [facility] Last Admin: 11/02/17 08:25 Dose: Not Given Aspirin (Aspirin Chewable) 81 mg PO DAILY [facility] Last Admin: 11/02/17 11:08 Dose: 81 mg Atorvastatin Calcium (Lipitor) 40 mg PO DIN [facility] Last Admin: 11/01/17 18:42 Dose: Not Given Bacitracin (Bacitracin) 1 ea TOP BID [facility] Last Admin: 11/02/17 11:08 Dose: Not Given Budesonide (Pulmicort Respules) 0.5 mg IH [id number] [facility] Last Admin: 11/02/17 08:22 Dose: 0.5 mg Diphenhydramine HCl (Benadryl) 25 mg PO HS PRN PRN Reason: Insomnia Last Admin: 11/01/17 22:44 Dose: 25 mg Ergocalciferol (Drisdol 50,000 Intl Units Cap) 1 cap PO WED [facility] Last Admin: 11/01/17 10:00 Dose: Not Given Fenofibrate (Tricor) 145 mg PO DAILY [facility] Last Admin: 11/02/17 11:41 Dose: 145 mg Guaifenesin (Mucinex La) 600 mg PO BID [facility] Last Admin: 11/02/17 10:07 Dose: 600 mg Hydralazine HCl (Apresoline) 25 mg PO BID [facility] Last Admin: 11/02/17 12:05 Dose: 25 mg Micafungin Sodium 100 mg/ (Sodium Chloride) 100 mls @ 100 mls/hr IV DAILY [facility] PRN Reason: Protocol Stop: 11/09/17 12:16 Last Admin: 11/02/17 11:43 Dose: 100 mls/hr Insulin Human NPH (Humulin N) 25 units SC QPM [facility] Last Admin: 11/01/17 18:42 Dose: Not Given Insulin Human Regular (Humulin R High) 0 units SC ACHS [facility] PRN Reason: Protocol Last Admin: 11/02/17 11:36 Dose: 4 units Latanoprost (Xalatan Opht) 0 ml OU HS [facility] Last Admin: 11/01/17 21:47 Dose: 2.5 ml Levothyroxine Sodium (Synthroid) 25 mcg PO 0600 [facility] Last Admin: 11/02/17 05:35 Dose: 25 mcg Loratadine (Claritin) 10 mg PO HS [facility] Last Admin: 11/01/17 21:44 Dose: 10 mg Metoprolol Tartrate (Lopressor) 25 mg PO BID [facility] Last Admin: 11/02/17 10:07 Dose: 25 mg Montelukast Sodium (Singulair) 10 mg PO [facility] Last Admin: 11/01/17 21:45 Dose: 10 mg Morphine Sulfate (Morphine) 2 mg IVP Q6H PRN PRN Reason: Pain, moderate (4-7) Last Admin: 11/02/17 11:40 Dose: 2 mg Multivitamins (Thera Tab) 1 tab PO DAILY [facility] Last Admin: 11/02/17 11:41 Dose: 1 tab Himcu-4-Lzpy Ethyl Esters (Lovaza) 2 gm PO BID [facility] Last Admin: 11/02/17 11:40 Dose: 2 gm Ondansetron HCl (Zofran Inj) 4 mg IVP Q6H PRN PRN Reason: Nausea/Vomiting Last Admin: 10/23/17 06:48 Dose: 4 mg Oxycodone/Acetaminophen (Percocet 5/325 Mg Tab) 1 tab PO BID PRN PRN Reason: Pain, severe (8-10) Stop: 11/04/17 16:53 Pantoprazole Sodium (Protonix Ec Tab) 20 mg PO 0600 [facility] Last Admin: 11/02/17 05:35 Dose: 20 mg Pregabalin (Lyrica) 50 mg PO HS [facility] Last Admin: 11/01/17 21:45 Dose: 50 mg Sevelamer HCl (Renagel) 1,600 mg PO WM [facility] Last Admin: 11/02/17 11:41 Dose: 1,600 mg Sodium Chloride ([place] Nasal [place]) 0 ml NS Q2H PRN PRN Reason: Nasal congestion Tamsulosin HCl (Flomax) 0.4 mg PO HS [facility] Last Admin: 11/01/17 21:44 Dose: 0.4 mg Ticagrelor (Brilinta) 90 mg PO BID [facility] Last Admin: 11/02/17 11:40 Dose: 90 mg - Labs Labs: 11/02/17 06:30 11/02/17 06:30 PT 19.8 SECONDS (9.4-12.5) H 10/29/17 06:30 INR 1.70 10/29/17 06:30 APTT 32.6 Seconds (25.1-36.5) 10/29/17 06:30 - Constitutional Appears: Well, Non-toxic, No Acute Distress, Chronically Ill - Head Exam Head Exam: ATRAUMATIC - Eye Exam Eye Exam: EOMI, Normal appearance, PERRL Pupil Exam: NORMAL ACCOMODATION, PERRL - Neck Exam Neck Exam: Full ROM - Respiratory Exam Respiratory Exam: NORMAL BREATHING PATTERN - Cardiovascular Exam Cardiovascular Exam: REGULAR RHYTHM, +S1, +S2 - Extremities Exam Extremities Exam: Full ROM, Normal Capillary Refill - Neurological Exam Neurological Exam: Alert, Awake, CN II-XII Intact, Oriented x3 Neuro motor strength exam: Left Upper Extremity: 5, Right Upper Extremity: 5, Left Lower Extremity: 4, Right Lower Extremity: 4 - Psychiatric Exam Psychiatric exam: Normal Affect - Skin Skin Exam: Normal Color Assessment and Plan - Assessment and Plan (Free Text) Assessment: Midline removal of RUE patient tolerated well, catheter at 15cm in length, no clot at tip of catheter, no purulent drainage, no bleeding, hematoma, ecchymosis , cellulitis or rash. Plan: remove pressure dressing in AM, s/p Midline removal RUE.
[2017-11-02 15:13] VITALS: BP 113/50; PULSE 67; RESP 20
--- NOTE | 2017-11-02 18:25 | PN ---
Copied To: Jaspreet Forbes MD Attending MD: Jaspreet Forbes MD DATE: 11/02/2017 SUBJECTIVE: The patient is in bed, in no acute distress, nontoxic. PHYSICAL EXAMINATION: VITAL SIGNS: Temperature is 97, blood pressure is 113/50, respiratory rate of 20, heart rate of 67. HEENT: Unremarkable. NECK: Supple. LUNGS: Decreased breath sounds. HEART: Normal S1, S2. ABDOMEN: Soft, nontender. LABORATORY EXAMINATION: Reveals a white count of 8.9. BUN of 26, creatinine of 4.7. 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 No endophthalmitis as per Ophthalmology. No evidence of endocarditis as per transesophageal echo. Status post removal of peripherally inserted central line. May have completed 14 days of Mycamine, status post [id number] amputation and currently, the patient is off antibiotics and antifungal. Review of microbiology confirms that the patient has been cultured negative. We will discontinue Mycamine and no further antibiotics. Watch the patient, off antibiotics. Jaspreet Forbes MD
--- NOTE | 2017-11-15 23:59 | OP ---
Copied To: Medardo Urrutia MD Attending MD: Medardo Urrutia MD PROCEDURE DATE: 10/30/2017 PREOPERATIVE DIAGNOSIS: Gangrene of the right foot. POSTOPERATIVE DIAGNOSIS: Gangrene of the right foot. PROCEDURE: Below the knee amputation on the right side. SURGEON: Medardo Urrutia MD DESCRIPTION OF PROCEDURE: In the operating room, the patient identified by name, name of the procedure, laterality and my kina. Tourniquet was placed. The leg was exsanguinated. A long posterior flap was designed and once the timeout was successful, the flap was designed using a blade circumferentially along the marked incision. The fascia was then designed circumferentially, the bone, both the tibia and fibula were designed. The fibula was accessed circumferentially and taken with the bone cutter high up at the joint. The bone was taken with the saw. The 2 bones were pulled forward and the leg was then taken off with an amputation knife going to the end of the incision and then going downward. The amputation being removed, the artery, nerve and vein individually ligated high. Hemostasis achieved with cautery. The flap was then designed nicely. A Dandy was placed followed by an On-Q. The incision was closed with 0-Vicryl followed by fitz. Light pressure dressing was applied. The patient was taken to the recovery room in good condition after the sponge and needle counts were declared as correct. Medardo Urrutia MD [facility]
== END 2017-11-02 17:42 | DRG 856 ==
LOC: ED 12:07 → ERH 13:33 → 5RSO 15:29 → CCU 10-23 16:39 → 2RNO 10-25 21:37 → 5RSO 10-26 19:03
PROVIDERS: ADMIT Internal Medicine Nephrology; ATTEND Internal Medicine Nephrology
PROC: 30233N1 Transfusion of Nonautologous Red Blood Cells into Peripheral Vein, Percutaneous Approach (ICD-10-PCS; 2017-10-17)
PROC: 5A1D70Z Performance of Urinary Filtration, Intermittent, Less than 6 Hours Per Day (ICD-10-PCS; 2017-10-17)
PROC: 5A1D70Z Performance of Urinary Filtration, Intermittent, Less than 6 Hours Per Day (ICD-10-PCS; 2017-10-18)
PROC: B246ZZ4 Ultrasonography of Right and Left Heart, Transesophageal (ICD-10-PCS; 2017-10-20)
PROC: 5A1D70Z Performance of Urinary Filtration, Intermittent, Less than 6 Hours Per Day (ICD-10-PCS; 2017-10-20)
PROC: 5A1D70Z Performance of Urinary Filtration, Intermittent, Less than 6 Hours Per Day (ICD-10-PCS; 2017-10-23)
PROC: 6A550Z2 Pheresis of Platelets, Single (ICD-10-PCS; 2017-10-24)
PROC: 0DJ08ZZ Inspection of Upper Intestinal Tract, Via Natural or Artificial Opening Endoscopic (ICD-10-PCS; 2017-10-25)
PROC: 5A1D70Z Performance of Urinary Filtration, Intermittent, Less than 6 Hours Per Day (ICD-10-PCS; 2017-10-25)
PROC: 5A1D70Z Performance of Urinary Filtration, Intermittent, Less than 6 Hours Per Day (ICD-10-PCS; 2017-10-27)
PROC: 05HY33Z Insertion of Infusion Device into Upper Vein, Percutaneous Approach (ICD-10-PCS; 2017-10-30)
PROC: B54MZZA Ultrasonography of Right Upper Extremity Veins, Guidance (ICD-10-PCS; 2017-10-30)
PROC: 5A1D70Z Performance of Urinary Filtration, Intermittent, Less than 6 Hours Per Day (ICD-10-PCS; 2017-10-30)
PROC: 0Y6H0Z2 Detachment at Right Lower Leg, Mid, Open Approach (ICD-10-PCS; principal; 2017-10-30 07:30)
PROC: 5A1D70Z Performance of Urinary Filtration, Intermittent, Less than 6 Hours Per Day (ICD-10-PCS; 2017-11-01)
DX: T81.4XXA Infection following a procedure, initial encounter (principal); N18.6 End stage renal disease; D68.59 Other primary thrombophilia; E11.52 Type 2 diabetes mellitus with diabetic peripheral angiopathy with gangrene; B49 Unspecified mycosis; K92.2 Gastrointestinal hemorrhage, unspecified; D62 Acute posthemorrhagic anemia; I13.2 Hypertensive heart and chronic kidney disease with heart failure and with stage 5 chronic kidney disease, or end stage renal disease; I42.9 Cardiomyopathy, unspecified; I69.351 Hemiplegia and hemiparesis following cerebral infarction affecting right dominant side; I69.354 Hemiplegia and hemiparesis following cerebral infarction affecting left non-dominant side; L03.115 Cellulitis of right lower limb; N25.81 Secondary hyperparathyroidism of renal origin; D63.1 Anemia in chronic kidney disease; D69.59 Other secondary thrombocytopenia; D75.82 Heparin induced thrombocytopenia (HIT); E03.9 Hypothyroidism, unspecified; E11.21 Type 2 diabetes mellitus with diabetic nephropathy; E11.22 Type 2 diabetes mellitus with diabetic chronic kidney disease; E11.319 Type 2 diabetes mellitus with unspecified diabetic retinopathy without macular edema; E11.42 Type 2 diabetes mellitus with diabetic polyneuropathy; E11.43 Type 2 diabetes mellitus with diabetic autonomic (poly)neuropathy; E11.621 Type 2 diabetes mellitus with foot ulcer; E11.65 Type 2 diabetes mellitus with hyperglycemia; E61.1 Iron deficiency; E66.9 Obesity, unspecified; Z68.34 Body mass index [BMI] 34.0-34.9, adult; E78.00 Pure hypercholesterolemia, unspecified; E78.5 Hyperlipidemia, unspecified; E83.39 Other disorders of phosphorus metabolism; G47.00 Insomnia, unspecified; G47.33 Obstructive sleep apnea (adult) (pediatric); H54.8 Legal blindness, as defined in USA; I25.10 Atherosclerotic heart disease of native coronary artery without angina pectoris; I50.9 Heart failure, unspecified; I27.20 Pulmonary hypertension, unspecified; I08.2 Rheumatic disorders of both aortic and tricuspid valves; J44.9 Chronic obstructive pulmonary disease, unspecified; K21.9 Gastro-esophageal reflux disease without esophagitis; K31.84 Gastroparesis; K57.90 Diverticulosis of intestine, part unspecified, without perforation or abscess without bleeding; L97.519 Non-pressure chronic ulcer of other part of right foot with unspecified severity; N40.0 Benign prostatic hyperplasia without lower urinary tract symptoms; I25.2 Old myocardial infarction; Z79.82 Long term (current) use of aspirin; Z86.010 Personal history of colon polyps; Z87.01 Personal history of pneumonia (recurrent); Z87.440 Personal history of urinary (tract) infections; Z88.0 Allergy status to penicillin; Z95.0 Presence of cardiac pacemaker; Z91.19 Patient's noncompliance with other medical treatment and regimen; Z95.5 Presence of coronary angioplasty implant and graft; Z90.49 Acquired absence of other specified parts of digestive tract; Z89.431 Acquired absence of right foot; Z99.2 Dependence on renal dialysis

== ENCOUNTER 2017-11-19 00:14 | Inpatient (IN) | payer MEDICARE, OTHER ==
[2017-11-19 01:42] LABS: BASO # 0.03 K/mm3 (0.0-2.0); BASO % 0.5 % (0.0-3.0); EOS # 0.1 (0.0-0.7); EOS % 1.6 % (1.5-5.0); GRAN # 3.91 (1.4-6.5); GRAN % 63.9 % (50.0-68.0); HEMOGLOBIN 8.7 g/dL (14.0-18.0); LYMPH # 1.4 (1.2-3.4); LYMPH % 23.4 % (22.0-35.0); MEAN CELL VOLUME 95.7 fl (80.0-105.0); MEAN CORPUSCULAR HGB CONC 32.3 g/dl (31.0-37.0); MEAN PLATELET VOLUME 11.6 fl (7.0-11.0); MONO # 0.7 (0.1-0.6); MONO % 10.6 % (1.0-6.0); RBC 2.81 10^6/uL (3.5-6.1); RED CELL DISTRIBUTION WIDTH 20.2 % (11.5-14.5); WHITE BLOOD COUNT 6.1 10^3/ul (4.5-11.0)
[2017-11-19 01:54] LABS: CALCIUM 8.4 mg/dL (8.4-10.5)
--- NOTE | 2017-11-19 03:08 | ED PDOC ---
Arrival/HPI - General Chief Complaint: Shortness Of Breath Time Seen by Provider: 11/19/17 00:52 Historian: Patient - History of Present Illness Narrative History of Present Illness (Text): 11/19/17 00:30 52 year old male, whose past medical history includes ESRD on dialysis ( sessions //Mon), CHF, COPD, diabetes, hypertension, asthma, 4 stents, pacemaker, presents to the emergency department complaining of shortness of breath since yesterday. [place] [facility] [place] secondary to [place] and was in [facility] for rehab. Patient was just discharged from rehab (11/18/17) and had shortness of breath ever since. Patient is not on oxygen at home and reports when he felt shortness of breath at the rehab he was given oxygen with relief. Patient denies any fever, chills, cough, chest pain, nausea, vomiting, diarrhea, urinary symptoms, back pain, neck pain, headache, dizziness, or any other complaints. PMD/Captain Room Service: Dr. Potter Mule Developer: Dr. Erickson [employer] Consultant: Dr. Villanueva Time/Duration: 24 hours Symptom Onset: Gradual Symptom Course: Unchanged Activities at Onset: Light Context: Home Past Medical History - Provider Review Nursing Documentation Reviewed: Yes - Past History Past History: No Previous - Infectious Disease Hx of Infectious Diseases: None - Tetanus Immunization Tetanus Immunization: Up to Date - Reproductive Currently Lactating: No - Cardiac Hx Circulatory Problems: Yes (pvd) Hx Hypertension: Yes Hx Pacemaker: Yes (medtronic) Other/Comment: 2 stent placement - Pulmonary Hx Asthma: Yes Hx Chronic Obstructive Pulmonary Disease (COPD): Yes - Neurological HX Cerebrovascular Accident: Yes (r side weakness) - HEENT Hx HEENT Disorder: Yes (BILATERAL EYE WITH BLURRY VISION) Hx Cataracts: Yes (HAD SX 05/29/12, r with iol) Hx Epistaxis: Yes Other/Comment: left eye cornea transplant,RENAL RETINOPATHY, glasses, blurred vision - Renal Hx Dialysis: Yes Date of Last Dialysis Treatment: 11/01/17 Hx Renal Failure: Yes - Endocrine/Metabolic Hx Diabetes Mellitus Type 1: Yes Hx Diabetes Mellitus Type 2: Yes Hx Hypothyroidism: Yes - Hematological/Oncological Hx AIDS: No Hx Anemia: Yes Hx Blood Transfusions: Yes Hx Blood Transfusion Reaction: No - Integumentary Hx Dermatological Disorder: Yes - Musculoskeletal/Rheumatological Hx Falls: Yes - Gastrointestinal Hx Gastrointestinal Disorders: Yes (cdif 01/14/17) Hx Gall Bladder Disease: Yes (CHOLECYSTECTOMY) Hx Gastroesophageal Reflux: Yes Hx Liver Failure: Yes (CKD) Hx Pancreatitis: Yes Other/Comment: colon polyps, - Genitourinary/Gynecological Hx Genitourinary Disorders: Yes (esrd on HD MWF) Hx Hematuria: Yes Hx Prostate Problems: Yes (bph) Hx Urinary Tract Infection: Yes - Psychiatric Hx Psychophysiologic Disorder: Yes Hx Anxiety: Yes Hx Depression: No Hx Substance Use: No - Surgical History Other/Comment: Right BTK amputation 2018 - Anesthesia Hx Anesthesia: Yes Hx Anesthesia Reactions: No Hx Malignant Hyperthermia: No - Suicidal Assessment Feels Threatened In Home Enviroment: No Family/Social History - Physician Review Nursing Documentation Reviewed: Yes Family/Social History: Unknown Family HX Smoking Status: Never Smoked Hx Alcohol Use: No Hx Substance Use: No Hx Substance Use Treatment: No Allergies/Home Meds Allergies/Adverse Reactions: Allergies insulin aspart [From Novolog] Allergy (Intermediate, Verified 11/19/17 00:22) RASH ANY INSULIN THAT STARTS WITH NOV- moxifloxacin Allergy (Intermediate, Verified 11/19/17 00:22) RASH Penicillins Allergy (Intermediate, Verified 11/19/17 00:22) RASH insulin regular [From Novolin R Regular U-100 Insuln] Allergy (Verified 00:22) ITCHING Home Medications: Home Meds Medication Instructions Recorded Confirmed Diclofenac Sodium [Voltaren] 1 appl TOP DAILY 06/14/17 11/19/17 Ergocalciferol (Vitamin D2) 50,000 unit PO WED 06/16/17 11/19/17 [Vitamin D2] Bimatoprost [Lumigan] 1 drp OU HS 07/05/17 11/19/17 Salmeterol Xinafoate/Fluticaso 1 puff IH BID 07/05/17 11/19/17 [Advair Hfa 230-21] Cetirizine HCl [Zyrtec] 10 mg PO DAILY 10/16/17 11/19/17 Fenofibrate [Triglide] 160 mg PO DAILY 10/16/17 11/19/17 Fluticasone Nasal [Flonase] 2 spr NS DAILY 10/16/17 11/19/17 Ketoconazole 2% Cr [Nizoral] 1 appl TP DAILY PRN 10/16/17 11/19/17 Pimecrolimus 1% [Elidel 1% Cream] 1 % TP AMHS 10/16/17 11/19/17 Arformoterol [Brovana] 15 mcg IH Q12H 11/02/17 11/19/17 Atorvastatin [Lipitor] 40 mg PO HS 11/02/17 11/19/17 Budesonide [Pulmicort Respules] 0.5 mg IH Q12H 11/02/17 11/19/17 Insulin Human NPH [Humalin N] 25 units SC QPM 11/02/17 11/19/17 Insulin Human Regular-HIGH See Protocol SC ACHS 11/02/17 11/19/17 [HumuLIN R HIGH] Latanoprost 0.005% Opht [XALATAN 1 drop OU HS 11/02/17 11/19/17 2.5 Ml] Loratadine [Claritin] 10 mg PO HS 11/02/17 11/19/17 Micafungin [Mycamine] 100 mg IV DAILY 11/02/17 11/19/17 Morphine 2 mg IVP Q6 PRN 11/02/17 11/19/17 Ondansetron [Zofran Inj] 4 mg IVP Q6H 11/02/17 11/19/17 Sodium Chloride Nasal [place] [[place] 1 ml NS Q2 PRN 11/02/17 11/19/17 Nasal [place]] oxyCODONE/Acetaminophen [Percocet 1 tab PO BID PRN 11/02/17 11/19/17 5/325 mg Tab] Review of Systems - Physician Review All systems were reviewed & negative as marked: Yes - Review of Systems Constitutional: absent: Fevers, Other (Chills) Respiratory: SOB. absent: Cough Cardiovascular: absent: Chest Pain Gastrointestinal: absent: Diarrhea, Nausea, Vomiting Genitourinary Male: absent: Dysuria, Frequency, Hematuria Musculoskeletal: absent: Back Pain, Neck Pain Neurological: absent: Headache, Dizziness Physical Exam Vital Signs Reviewed: Yes Vital Signs Temp Pulse Resp BP Pulse Ox 11/19/17 03:42 70 18 107/58 L 100 11/19/17 00:43 98.2 F 85 16 90/48 L 97 Temperature: Afebrile Blood Pressure: Hypotensive Pulse: Regular Respiratory Rate: Normal Appearance: Positive for: Well-Appearing, Non-Toxic, Comfortable Pain Distress: None Mental Status: Positive for: Alert and Oriented X 3 - Systems Exam Head: Present: Atraumatic, Normocephalic Pupils: Present: PERRL Extroacular Muscles: Present: EOMI Conjunctiva: Present: Normal Mouth: Present: Moist Mucous Membranes Neck: Present: Normal Range of Motion Respiratory/Chest: Present: Decreased Breath Sounds. No: Respiratory Distress, Accessory Muscle Use, Wheezes, Rales Cardiovascular: Present: Regular Rate and Rhythm, Normal S1, S2. No: Murmurs Abdomen: No: Tenderness, Distention, Peritoneal Signs Back: Present: Normal Inspection Upper Extremity: Present: Normal Inspection. No: Cyanosis, Edema Lower Extremity: Present: Other (BKA right leg). No: Edema Neurological: Present: GCS=15, CN II-XII Intact, Speech Normal Skin: Present: Warm, Dry, Normal Color. No: Rashes Psychiatric: Present: Alert, Oriented x 3, Normal Insight, Normal Concentration Medical Decision Making ED Course and Treatment: 11/19/17 00:40 Impression: 52 year old male presents complaining of shortness of breath ever since patient was discharged from rehab yesterday. Plan: -- Labs -- Chest X-ray -- Lasix -- Reassess and disposition Prior Visits: Notes and results from previous visits were reviewed. Patient was last seen in the emergency department on 10/16/17 presents for gangrene to the right foot and bone exposure s/p amputation of the 5 digits on the right foot. Patient was admitted. Progress Notes: CXR Impression: As read by me, vascular congestion Elevated pro BNP noted- dyspnea likely from CHF exacerbation. Lasix 40mg ivp ordered for diuresis. Patient refused Lasix stating he is worried about his blood pressure. Will admit patient for further management of CHF. 11/19/17 03:[address] Castillo who is covering Dr. Higgins who is aware and agrees with the plan. Accepts patient into her service. Request patient's nehprologist for consult who patient states is Dr. Galol Higgins. - Lab Interpretations Lab Results: 11/19/17 01:30 11/19/17 01:30 Lab Results 11/19/17 01:30: Sodium 138, Potassium 4.8, Chloride 100, Carbon Dioxide 27, Anion Gap 16, BUN 26 H, Creatinine 5.3 H, Est GFR ( Amer) 14, Est GFR ( Non-Af Amer) 11, Random Glucose 157 H, Calcium 8.4, NT-Pro-B Natriuret Pep [id number] H 11/19/17 01:30: WBC 6.1, RBC 2.81 L, Hgb 8.7 L, Hct 26.9 L, MCV 95.7 D, MCH 31.0, MCHC 32.3, RDW 20.2 H, Plt Count 138, MPV 11.6 H, Gran % 63.9, Lymph % ( Auto) 23.4, [place] % (Auto) 10.6 H, Eos % (Auto) 1.6, Baso % (Auto) 0.5, Gran # 3.91, Lymph # (Auto) 1.4, [place] # (Auto) 0.7 H, Eos # (Auto) 0.1, Baso # (Auto) 0.03 I have reviewed the lab results: Yes - RAD Interpretation Radiology Orders: 11/19/17 00:58 CXR [CHEST PORTABLE] [RAD] Stat - Medication Orders Current Medication Orders: Discontinued Medications Furosemide (Lasix) 40 mg IVP STAT STA Stop: 11/19/17 02:46 Last Admin: 11/19/17 03:25 Dose: Not Given Non-Admin Reason: Patient Refused Oxycodone/Acetaminophen (Percocet 5/325 Mg Tab) 1 tab PO STAT STA Stop: 11/19/17 03:10 Last Admin: 11/19/17 03:24 Dose: 1 tab MAR Pain Assessment Document 11/19/17 03:24 AD (Rec: 11/19/17 03:24 AD [id number]) Pain Reassessment Is this a pain reassessment? No Presence of Pain Presence of Pain Yes Pain Scale Used Pain Scale Used Numeric Location Left, Right or Bilateral Right Pain Location Body Site Leg Description Intensity of Pain at present 8 Pain Behavior Facial Grimacing - Scribe Statement The provider has reviewed the documentation as recorded by the Fransisca Vasques Provider Scribe Attestation: All medical record entries made by the Elizabethibclive were at my direction and personally dictated by me. I have reviewed the chart and agree that the record accurately reflects my personal performance of the history, physical exam, medical decision making, and the department course for this patient. I have also personally directed, reviewed, and agree with the discharge instructions and disposition. Disposition/Present on Arrival - Present on Arrival Any Indicators Present on Arrival: Yes History of DVT/PE: No History of Uncontrolled Diabetes: Yes Urinary Catheter: No History of Decub. Ulcer: No History Surgical Site Infection Following: None - Disposition Have Diagnosis and Disposition been Completed?: Yes Diagnosis: Acute exacerbation of CHF (congestive heart failure) Disposition: HOSPITALIZED Disposition Time: 03:18 Patient Problems: Current Active Problems Problem Status Onset Acute exacerbation of CHF (congestive heart failure) Acute Condition: FAIR
[2017-11-19] MEDS ORDERED: Oxycodone/Acetaminophen 5/325 mg Tab PO STA (03:09)
[2017-11-19 06:07] VITALS: BMI 30.1
--- NOTE | 2017-11-19 09:15 | RAD ---
HISTORY: dyspnea COMPARISON: Chest x-ray performed 11/01/17 TECHNIQUE: Chest, one view. FINDINGS: Examination limited by habitus and hypoinflation. LUNGS: No focal consolidation. Please note that chest x-ray has limited sensitivity for the detection of pulmonary masses. PLEURA: No significant pleural effusion identified. No definite pneumothorax . CARDIOVASCULAR: Marked cardiomegaly. Dual lead right-sided pacemaker. OSSEOUS STRUCTURES: No acute osseous abnormality identified. VISUALIZED UPPER ABDOMEN: Unremarkable. OTHER FINDINGS: None. IMPRESSION: Right-sided pacemaker. Cardiomegaly.
[2017-11-19] MEDS: guaiFENesin 600 mg ER Tab PO SCH ×2 (11:02→18:01)
[2017-11-19] MEDS: Bacitracin Ointment 30 GM TUBE TOP SCH ×2 (11:52→18:02)
[2017-11-19] MEDS: Arformoterol 15 mcg/2 ml Inh Sol IH SCH ×2 (14:54→20:20)
[2017-11-19] MEDS: Albuterol-Ipratrop 3 mg / 0.5 (3 ml) UD IH PRN (14:57)
[2017-11-19] MEDS: Insulin Human NPH 1 UNITS/0.01 ML SC SCH ×3 (18:01→22:15)
[2017-11-19] MEDS: Oxycodone/Acetaminophen 5/325 mg Tab PO PRN (18:40)
[2017-11-19] MEDS ORDERED: BIMATOPROST OU SCH (22:00)
--- NOTE | 2017-11-19 23:09 | HP ---
Copied To: Sanjay Castillo MD Attending MD: Sanjay Castillo MD DATE OF EXAM: 11/19/2017 HISTORY OF PRESENT ILLNESS: The patient is 52 years old, patient of Dr. Potter, who was recently discharged while in rehab. The patient was just discharged and came home yesterday. The patient states he did not have all his supply including oxygen . He was unable to lie flat. He was getting increasingly short of breath, so he called the ambulance and he was brought to emergency room. The patient denies any chest pain. No history of fevers. No chills. No nausea or vomiting. PAST MEDICAL HISTORY: However, he has significant past medical history of, 1. Hypertension. 2. End-stage renal disease, on hemodialysis. 3. 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 4. Recent cardiac cath with angioplasty. 5. History of peripheral vascular disease. 6. History of pacemaker placement. 7. Obstructive sleep apnea. 8. History of COPD. 9. Noninsulin-dependent diabetes. 10. Diabetic neuropathy. 11. Chronic anemia. 12. Hyperphosphatemia. 13. History of severe pulmonary hypertension. ALLERGY: HE IS ALLERGIC TO ASPART, AVELOX, PENICILLIN AND INSULIN. MEDICATION AT HOME: The patient is on Percocet as needed, hydralazine 25 twice a day, Mucinex, Brilinta 90 mg twice a day, Flomax 0.4 at bedtime, nasal spray, he is on Ren[place]el 1600 with meals and he is on Lyrica 50 mg at bedtime, Protonix 20 daily, [place] 3 fish oil, he is on multivitamin, he is on Singulair, metoprolol, he is on levothyroxine and his Zyrtec as needed. SOCIAL HISTORY: Denies smoking, drinking or alcohol use. REVIEW OF SYSTEMS: Significant for mild shortness of breath and pain in the right stump. PHYSICAL EXAMINATION: GENERAL: He is awake, alert, oriented, communicative. VITAL SIGNS: He is afebrile, pulse 70, respirations 18, blood pressure 145. LUNGS: Bilateral diffusely decreased breath sound. HEART: S1 and S2 audible. ABDOMEN: Soft. Nontender. Obese. No hepatosplenomegaly. NEUROLOGICAL: The patient is awake, alert, oriented, able to communicate. EXTREMITIES: Right stump is in the dressing. LABORATORY EXAM: WBC 6.1, hemoglobin 8.7, hematocrit 26.9, platelet of 138. PT 19.8, INR 1.70. Chemistry: Sodium 138, potassium 4.8, chloride 100, CO2 of 27, BUN 26, creatinine 5.3, blood sugar 117. His stool for Hemoccult is positive on 10/23/2017. BNP 94,400. X-ray chest: Right-sided pacemaker and cardiomegaly. ASSESSMENT: 1. Congestive heart failure exacerbation, acute on chronic, systolic. 2. Pulmonary hypertension. 3. End-stage renal disease, on hemodialysis. 4. Hypertension. 5. Noninsulin-dependent diabetes. PLAN: We will resume the patient his usual medication, monitor blood sugar. Possible dialysis in a.m. Social Service is to make arrangement for hospital bed and oxygen upon discharge. Because of the Labor Day weekend, it is not available today or tomorrow. Make discharge plan on Monday. Sanjay Castillo MD
[2017-11-20] MEDS: BIMATOPROST OU SCH ×2 (01:21→23:01)
[2017-11-20] MEDS: Oxycodone/Acetaminophen 5/325 mg Tab PO PRN ×3 (01:25→18:14)
[2017-11-20] MEDS: Levothyroxine 25 MCG TAB PO SCH (05:25)
--- NOTE | 2017-11-20 05:32 | CARD ---
APPROVED REPORT Date of service: 11/19/2017 EKG Measurement Heart [id number] <Conclusion> Electronic ventricular pacemaker
[2017-11-20] MEDS: Simethicone 40 mg/0.6 ml Liquid (30 ml) PO SCH ×5 (06:09→23:45)
[2017-11-20] MEDS: Arformoterol 15 mcg/2 ml Inh Sol IH SCH ×3 (07:22→20:10)
[2017-11-20] MEDS: Albuterol-Ipratrop 3 mg / 0.5 (3 ml) UD IH PRN (07:22)
[2017-11-20] MEDS: Bacitracin Ointment 30 GM TUBE TOP SCH ×2 (11:42→18:19)
[2017-11-20] MEDS: guaiFENesin 600 mg ER Tab PO SCH ×2 (11:43→20:15)
--- NOTE | 2017-11-20 16:26 | PN ---
Copied To: Sanjay Castillo MD Attending MD: Sanjay Castillo MD DATE: 11/20/2017 SUBJECTIVE: The patient is 52 years old, recently had right BKA done. After that, he was sent to rehab. He was just discharged on 11/18/2017. When he reached home, he did not have proper bed. He did not have oxygen. He was having shortness of breath. He could not catch up his breath. He called the ambulance and was brought to emergency room. The patient is getting ready to have dialysis done today. PHYSICAL EXAMINATION: GENERAL: The patient is awake, alert, oriented, communicative. VITAL SIGNS: The patient is afebrile, pulse 63, respirations 18, blood pressure 104/48. LUNGS: Bilateral fair airflow. No rhonchi or crackle. HEART: S1 and S2 audible. ABDOMEN: Soft, obese, nontender. No rebound. No guarding. NEUROLOGICAL: The patient is awake and alert, able to communicate. EXTREMITIES: Right stump is in the dressing. LABORATORY DATA: Blood sugar is 244. ASSESSMENT: 1. Congestive heart failure exacerbation. 2. End-stage renal disease, on hemodialysis. 3. Hypertension. 4. -dependent diabetes. 5. Benign prostatic hypertrophy. 6. Hypothyroidism. 7. Congestive heart failure. 8. Obstructive sleep apnea. 9. Peripheral artery disease, status post recent right below-knee amputation. 10. Pulmonary hypertension. 11. History of chronic obstructive pulmonary disease. 12. Pacemaker placement. PLAN: The patient will receive hemodialysis today. Will have hospital bed arranged for tomorrow and oxygen also will be arranged tomorrow. We will make discharge plan once health social work professor are back in place. Sanjay Castillo MD
[2017-11-20] MEDS: Insulin Human NPH 1 UNITS/0.01 ML SC SCH ×2 (18:07→22:21)
[2017-11-21] MEDS: Oxycodone/Acetaminophen 5/325 mg Tab PO PRN (00:59)
[2017-11-21] MEDS: Levothyroxine 25 MCG TAB PO SCH (05:47)
[2017-11-21 06:22] VITALS: BP 105/62; RESP 20; TEMP 98.5; O2SAT 98
[2017-11-21] MEDS: Arformoterol 15 mcg/2 ml Inh Sol IH SCH ×2 (07:33→07:35)
[2017-11-21] MEDS: Albuterol-Ipratrop 3 mg / 0.5 (3 ml) UD IH PRN ×2 (07:33→07:35)
--- NOTE | 2017-11-21 08:42 | CON ---
Copied To: Jarred Escalera MD Attending MD: Jarred Escalera MD DATE: 11/20/2017 REFERRING PHYSICIAN: Sanjay Castillo MD REASON FOR CONSULTATION: Chronic obstructive lung disease, obstructive sleep apnea syndrome, may have hypoventilation syndrome. HISTORY OF PRESENT ILLNESS: This is a 52-year-old gentleman known to me from office and previous admission, requested to see him. He was recently discharged from [facility]. At home, while sleeping at night he developed shortness of breath, came to emergency room, was kept in observation, been doing okay since in the hospital. He has a known sleep apnea syndrome, been noncompliant in the past. No medically changes including weight gain and also had right BKA. Feels like he is short of breath at middle the night, daytime sleepy and tired. No nausea. No vomiting. No diarrhea reported. PAST MEDICAL HISTORY: Chronic obstructive lung disease, renal failure, dialysis dependent, peripheral vascular disease status post right BKA, cardiomyopathy with diastolic dysfunction, pulmonary hypertension, coronary stent, diabetes, anemia. ALLERGIES: TO PENICILLIN, AVELOX AND ASPART INSULIN. FAMILY HISTORY: Positive for diabetes, hypertension and renal failure. SOCIAL HISTORY: Nonsmoker, nondrinker. MEDICATIONS: He is on hydralazine 25 mg twice a day, bacitracin ointment affected area twice a day, Lumigan 1 drop in the eye, Brilinta 90 mg twice a day, Brovana inhaled twice a day, Claritin 10 mg at bedtime, DuoNeb every 6 hours p.r.n., Ecotrin 81 mg daily, Flomax 0.4 mg daily, insulin coverage, Lipitor 40 mg at bedtime, metoprolol tartrate 25 mg twice a day, Lyrica 50 mg at bedtime, Mucinex [place] 600 mg twice a day, simethicone 40 mg four times a day, nasal saline each nostril every 2 hour p.r.n., Percocet 5/325 one tablet every 6 hour p.r.n., Synthroid 25 mcg daily, Zofran p.r.n. basis. REVIEW OF SYSTEM: No headache, no rhinitis. Does have a short of breath, minimal exertion, loud snoring nighttime, daytime sleepy and tired, choking sensation while sleeping. No abdominal pain. No dysuria. No leg pain. Right leg BKA site looks okay. PHYSICAL EXAMINATION GENERAL: No acute distress. VITAL SIGNS: Temperature is 98, heart rate 63, respiratory rate is 20, blood pressure 104/48, pulse ox 99% on 3 liters nasal cannula. HEENT: Moist mucous membrane. Crowded airway. Mallampati score is 4. NECK: Short thick neck. LUNGS: Have a few scattered rhonchi. HEART: S1 and S2. ABDOMEN: Soft, nontender, no organomegaly. EXTREMITIES: Right leg has a BKA, stump has a dressing. Left leg trace edema. NEUROLOGIC: Awake and follows simple commands. LABORATORY DATA: Shows hemoglobin 8.7, hematocrit 26.9, WBC 6.1, platelet is 138. Blood sugar 213. Sodium 138, potassium 4.8, chloride 100, bicarbonate 27, BUN 26, creatinine 5.3, glucose 157, calcium is 8.4. ProBNP is 94,400. Last VBG he has was in 10/16/2017, shows pH is 7.42, pCO2 is 48. IMPRESSION AND PLAN: Chronic obstructive lung disease, history of obstructive sleep apnea syndrome, pulmonary hypertension, cardiac diastolic dysfunction, coronary artery disease, history of coronary stent, diabetes, peripheral neuropathy, peripheral vascular disease, status post right below knee amputation, hypothyroid. The patient is noncompliant in the past with the CPAP and BiPAP and became non-eligible for CPAP and vendor took the CPAP away. He is also requesting if he can have a nebulizer machine that may help him. We will advise him about sleep apnea syndrome. Keep head elevated at 45 degrees. Avoid nocturnal sedation. May have to do home study as outpatient to qualify him for CPAP machine. Continue p.r.n. nebulizer treatment. Thank you and we will follow with you. Jarred Escalera MD
[2017-11-21] MEDS: guaiFENesin 600 mg ER Tab PO SCH (09:26)
[2017-11-21] MEDS: Simethicone 40 mg/0.6 ml Liquid (30 ml) PO SCH (09:29)
[2017-11-21] MEDS: Bacitracin Ointment 30 GM TUBE TOP SCH (09:39)
[2017-11-21 13:41] VITALS: PULSE 98
--- NOTE | 2017-11-21 14:11 | CP.PCM.DIS ---
Provider - Provider Date of Admission: 11/19/17 03:18 Attending physician: Gallo Potter MD Primary care physician: Gallo Potter MD Consults: Podiatry - Dr. Rich Harper - Dr. Escalera Nephro - Dr. Menjivar Time Spent in preparation of Discharge (in minutes): 45 Diagnosis - Discharge Diagnosis (1) Acute exacerbation of CHF (congestive heart failure) Status: Suspected (2) Renal failure Status: Chronic (3) S/P BKA (below knee amputation) unilateral Status: Chronic (4) Sepsis Status: Resolved (5) Shortness of breath Status: Resolved Hospital Course - Lab Results Lab Results: Most Recent Lab Values WBC 6.1 10^3/ul (4.5-11.0) 11/19/17 01:30 RBC 2.81 10^6/uL (3.5-6.1) L 11/19/17 01:30 Hgb 8.7 g/dL (14.0-18.0) L 11/19/17 01:30 Hct 26.9 % (42.0-52.0) L 11/19/17 01:30 MCV 95.7 fl (80.0-105.0) D 11/19/17 01:30 MCH 31.0 pg (25.0-35.0) 11/19/17 01:30 MCHC 32.3 g/dl (31.0-37.0) 11/19/17 01:30 RDW 20.2 % (11.5-14.5) H 11/19/17 01:30 Plt Count 138 10^3/uL (120.0-450.0) 11/19/17 01:30 MPV 11.6 fl (7.0-11.0) H 11/19/17 01:30 Gran % 63.9 % (50.0-68.0) 11/19/17 01:30 Lymph % (Auto) 23.4 % (22.0-35.0) 11/19/17 01:30 [place] % (Auto) 10.6 % (1.0-6.0) H 11/19/17 01:30 Eos % (Auto) 1.6 % (1.5-5.0) 11/19/17 01:30 Baso % (Auto) 0.5 % (0.0-3.0) 11/19/17 01:30 Gran # 3.91 (1.4-6.5) 11/19/17 01:30 Lymph # (Auto) 1.4 (1.2-3.4) 11/19/17 01:30 [place] # (Auto) 0.7 (0.1-0.6) H 11/19/17 01:30 Eos # (Auto) 0.1 (0.0-0.7) 11/19/17 01:30 Baso # (Auto) 0.03 K/mm3 (0.0-2.0) 11/19/17 01:30 Sodium 138 mmol/L (132-148) 11/19/17 01:30 Potassium 4.8 mmol/L (3.6-5.0) 11/19/17 01:30 Chloride 100 mmol/L (98-107) 11/19/17 01:30 Carbon Dioxide 27 mmol/L (21-33) 11/19/17 01:30 Anion Gap 16 (10-20) 11/19/17 01:30 BUN 26 mg/dL (7-21) H 11/19/17 01:30 Creatinine 5.3 mg/dl (0.8-1.5) H 11/19/17 01:30 Est GFR ( Amer) 14 11/19/17 01:30 Est GFR (Non-Af Amer) 11 11/19/17 01:30 POC Glucose (mg/dL) 302 mg/dL (65-110) H 11/21/17 11:17 Random Glucose 157 mg/dL (70-110) H 11/19/17 01:30 Calcium 8.4 mg/dL (8.4-10.5) 11/19/17 01:30 NT-Pro-B Natriuret Pep 45589 pg/mL (0-450) H 11/19/17 01:30 - Hospital Course Hospital Course: 52 year old male with past medical history of HTN, ESRD on dialysis, right BKA, PVD, COPD, sleep apnea (noncompliant with CPAP), DM type 2, and chronic anemia initially presented to the hospital for shortness of breath. Patient was recently discharged from rehab but did not have hospital bed at home. Patient underwent extra session of dialysis at hospital. Patient had shortness of breath resolve. Patient was discharged and had hospital bed delivered to his house. Patient will follow up with PMD. Discharge Exam - Head Exam Head Exam: ATRAUMATIC, NORMAL INSPECTION, NORMOCEPHALIC - Respiratory Exam Respiratory Exam: Clear to PA & Lateral. absent: Rales, Rhonchi, Wheezes - Cardiovascular Exam Cardiovascular Exam: RRR, +S1, +S2 - GI/Abdominal Exam GI & Abdominal Exam: Normal Bowel Sounds, Unremarkable. absent: Tenderness - Extremities Exam Additional comments: Right BKA - Neurological Exam Neurological exam: Alert, CN II-XII Intact, Oriented x3 - Psychiatric Exam Psychiatric exam: Normal Affect, Normal Mood - Skin Skin Exam: Intact, Normal Color, Warm Discharge Plan - Follow Up Plan Condition: FAIR Disposition: HOME/ ROUTINE Instructions: Heart Failure, Adult Additional Instructions: DISCHARGE TO HOME TODAY. FOLLOW UP WITH DR. POTTER IN ONE WEEK, CALL TO MAKE AN APPOINTMENT. IF SYMPTOMS RETURN CALL 911. Referrals: Gallo Potter MD [Primary Care Provider] -
== END 2017-11-21 13:52 | disposition home health service (06) | DRG 291 ==
LOC: ED 00:14 → ERH 03:18 → 2RNO 04:54
PROVIDERS: ADMIT Internal Medicine; ATTEND Internal Medicine Nephrology
PROC: 3E0F7GC Introduction of Other Therapeutic Substance into Respiratory Tract, Via Natural or Artificial Opening (ICD-10-PCS; 2017-11-19)
PROC: 5A1D70Z Performance of Urinary Filtration, Intermittent, Less than 6 Hours Per Day (ICD-10-PCS; principal; 2017-11-20)
DX: I13.2 Hypertensive heart and chronic kidney disease with heart failure and with stage 5 chronic kidney disease, or end stage renal disease (principal); I50.23 Acute on chronic systolic (congestive) heart failure; N18.6 End stage renal disease; E11.22 Type 2 diabetes mellitus with diabetic chronic kidney disease; E11.51 Type 2 diabetes mellitus with diabetic peripheral angiopathy without gangrene; E11.319 Type 2 diabetes mellitus with unspecified diabetic retinopathy without macular edema; E11.42 Type 2 diabetes mellitus with diabetic polyneuropathy; J44.9 Chronic obstructive pulmonary disease, unspecified; I27.20 Pulmonary hypertension, unspecified; I25.10 Atherosclerotic heart disease of native coronary artery without angina pectoris; G47.33 Obstructive sleep apnea (adult) (pediatric); E83.39 Other disorders of phosphorus metabolism; D64.9 Anemia, unspecified; I42.9 Cardiomyopathy, unspecified; N40.0 Benign prostatic hyperplasia without lower urinary tract symptoms; E03.9 Hypothyroidism, unspecified; Z91.19 Patient's noncompliance with other medical treatment and regimen; Z99.2 Dependence on renal dialysis; Z95.5 Presence of coronary angioplasty implant and graft; Z95.0 Presence of cardiac pacemaker; Z89.511 Acquired absence of right leg below knee

== ENCOUNTER 2017-12-08 18:57 | Inpatient (IN) | payer MEDICARE, OTHER ==
[2017-12-08 19:23] VITALS: BMI 29.0
--- NOTE | 2017-12-08 20:04 | ED PDOC ---
Arrival/HPI - General Chief Complaint: Finger,Hand,&Wrist Time Seen by Provider: 12/08/17 19:28 Historian: Patient - History of Present Illness Narrative History of Present Illness (Text): 12/08/17 20:00 52 year old male, whose past medical history includes ESRD on dialysis ( sessions //Mon), CHF. COPD, diabetes, hypertension, and pancreatitis, presents to the emergency department sent from dialysis for necrotic tip of left long finger. Patient has had this issue for a few months, and his PMD, Dr. Potter has seen it. Today, dialysis saw his finger, and sent him to the emergency department for evaluation. Patient denies any fevers, chills, headache, dizziness, chest pain, shortness of breath, cough, abdominal pain, nausea, vomiting, diarrhea, back pain, neck pain, urinary/bowel changes, or any other complaint. Time/Duration: Prior to Arrival Past Medical History - Provider Review Nursing Documentation Reviewed: Yes - Past History Past History: No Previous - Infectious Disease Hx of Infectious Diseases: None - Tetanus Immunization Tetanus Immunization: Up to Date - Reproductive Currently Lactating: No - Cardiac Hx Congestive Heart Failure: Yes Hx Hypertension: Yes - Pulmonary Hx Chronic Obstructive Pulmonary Disease (COPD): Yes - Neurological HX Cerebrovascular Accident: Yes (r side weakness) - HEENT Hx HEENT Disorder: Yes (BILATERAL EYE WITH BLURRY VISION) Hx Cataracts: Yes (HAD SX 05/29/12, r with iol) Hx Epistaxis: Yes Other/Comment: left eye cornea transplant,RENAL RETINOPATHY, glasses, blurred vision - Renal Hx Renal Disorder: Yes Hx Dialysis: Yes (m,w,) Date of Last Dialysis Treatment: 11/17/17 - Endocrine/Metabolic Hx Diabetes Mellitus Type 2: Yes - Hematological/Oncological Hx AIDS: No Hx Anemia: Yes Hx Blood Transfusions: Yes Hx Blood Transfusion Reaction: No - Integumentary Hx Dermatological Disorder: Yes - Musculoskeletal/Rheumatological Hx Falls: No - Gastrointestinal Hx Gastrointestinal Disorders: Yes (cdif 01/14/17) Hx Gall Bladder Disease: Yes (CHOLECYSTECTOMY) Hx Gastroesophageal Reflux: Yes Hx Liver Failure: Yes (CKD) Hx Pancreatitis: Yes Other/Comment: colon polyps, - Genitourinary/Gynecological Hx Genitourinary Disorders: Yes (esrd on HD MWF) Hx Hematuria: Yes Hx Prostate Problems: Yes (bph) Hx Urinary Tract Infection: Yes - Psychiatric Hx Psychophysiologic Disorder: Yes Hx Anxiety: Yes Hx Depression: No Hx Substance Use: No - Surgical History Hx Amputation: Yes (right bka) - Anesthesia Hx Anesthesia: Yes Hx Anesthesia Reactions: No Hx Malignant Hyperthermia: No - Suicidal Assessment Feels Threatened In Home Enviroment: No Family/Social History - Physician Review Nursing Documentation Reviewed: Yes Family/Social History: No Known Family HX Smoking Status: Never Smoked Hx Alcohol Use: No Hx Substance Use: No Hx Substance Use Treatment: No Allergies/Home Meds Allergies/Adverse Reactions: Allergies insulin aspart [From Novolog] Allergy (Intermediate, Verified 12/08/17 19:26) RASH ANY INSULIN THAT STARTS WITH NOV- moxifloxacin Allergy (Intermediate, Verified 12/08/17 19:26) RASH Penicillins Allergy (Intermediate, Verified 12/08/17 19:26) RASH insulin regular [From Novolin R Regular U-100 Insuln] Allergy (Verified 19:26) ITCHING Home Medications: Home Meds Medication Instructions Recorded Confirmed Diclofenac Sodium [Voltaren] 1 appl TOP DAILY 06/14/17 11/19/17 Ergocalciferol (Vitamin D2) 50,000 unit PO WED 06/16/17 11/19/17 [Vitamin D2] Bimatoprost [Lumigan] 1 drp OU HS 07/05/17 11/19/17 Salmeterol Xinafoate/Fluticaso 1 puff IH BID 07/05/17 11/19/17 [Advair Hfa 230-21] Cetirizine HCl [Zyrtec] 10 mg PO DAILY 10/16/17 11/19/17 Fenofibrate [Triglide] 160 mg PO DAILY 10/16/17 11/19/17 Fluticasone Nasal [Flonase] 2 spr NS DAILY 10/16/17 11/19/17 Atorvastatin [Lipitor] 40 mg PO HS 11/02/17 11/19/17 Budesonide [Pulmicort Respules] 0.5 mg IH Q12H 11/02/17 11/19/17 Insulin Human NPH [Humulin N] 25 units SC QPM 11/02/17 11/19/17 Insulin Human Regular-HIGH See Protocol SC ACHS 11/02/17 11/19/17 [HumuLIN R HIGH] Latanoprost 0.005% Opht [Xalatan 1 drop OU HS 11/02/17 11/19/17 Opht] Loratadine [Claritin] 10 mg PO HS 11/02/17 11/19/17 Sodium Chloride Nasal [place] [[place] 1 ml NS Q2 PRN 11/02/17 11/19/17 Nasal [place]] oxyCODONE/Acetaminophen [Percocet 1 tab PO BID PRN 11/02/17 11/19/17 5/325 mg Tab] Review of Systems - Physician Review All systems were reviewed & negative as marked: Yes - Review of Systems Constitutional: Normal. absent: Fevers, Night Sweats Eyes: Normal ENT: Normal Respiratory: Normal. absent: SOB, Cough Cardiovascular: Normal. absent: Chest Pain Gastrointestinal: Normal Genitourinary Male: Normal. absent: Urinary Output Changes Musculoskeletal: Normal. absent: Back Pain, Neck Pain Skin: Other (Necrosis of tip of left long finger) Neurological: Normal. absent: Headache, Dizziness Endocrine: Normal Hemo/Lymphatic: Normal Psychiatric: Normal Physical Exam Vital Signs Reviewed: Yes Vital Signs Temp Pulse Resp BP Pulse Ox 12/08/17 23:15 98.2 F 88 17 141/50 L 100 12/08/17 23:00 88 17 141/50 L 100 12/08/17 19:37 98.1 F 84 18 117/61 100 Temperature: Afebrile Blood Pressure: Normal Pulse: Regular Respiratory Rate: Normal Appearance: Positive for: Well-Appearing, Non-Toxic, Comfortable Pain Distress: None Mental Status: Positive for: Alert and Oriented X 3 - Systems Exam Head: Present: Atraumatic, Normocephalic Pupils: Present: PERRL Extroacular Muscles: Present: EOMI Conjunctiva: Present: Normal Mouth: Present: Moist Mucous Membranes Neck: Present: Normal Range of Motion Respiratory/Chest: Present: Clear to Auscultation, Good Air Exchange. No: Respiratory Distress, Accessory Muscle Use Cardiovascular: Present: Regular Rate and Rhythm, Normal S1, S2. No: Murmurs Abdomen: No: Tenderness, Distention, Peritoneal Signs Back: Present: Normal Inspection Upper Extremity: Present: Normal Inspection. No: Cyanosis, Edema Lower Extremity: Present: Normal Inspection. No: Edema Neurological: Present: GCS=15, CN II-XII Intact, Speech Normal Skin: Present: Warm, Dry, Normal Color, Other (necrosis of tip of left long finger on LUE). No: Rashes Psychiatric: Present: Alert, Oriented x 3, Normal Insight, Normal Concentration Medical Decision Making ED Course and Treatment: 12/08/17 20:09 Impression: 52 year old male presents sent by dialysis for necrotic tip of left long finger. Plan: -- Vancomycin -- Labs -- X-ray Left hand -- Reassess and disposition Prior Visits: Notes and results from previous visits were reviewed. Progress Notes: 12/08/17 20:[address] Alfredo Wynn to look at shunt in left arm, attained patient bed on med surge - Lab Interpretations I have reviewed the lab results: Yes - RAD Interpretation Radiology Orders: 12/08/17 20:04 HAND LEFT 3 VIEWS ROUTINE [RAD] Stat - EKG Interpretation Interpreted by ED Physician: Yes - Medication Orders Current Medication Orders: Albuterol/Ipratropium (Duoneb 3 Mg/0.5 Mg (3 Ml) Ud) 3 ml IH A4AUOES PRN PRN Reason: Shortness of Breath Aspirin (Ecotrin) 81 mg PO DAILY CARLOS Docusate Sodium (Colace) 100 mg PO DAILY CARLOS Hydralazine HCl (Apresoline) 25 mg PO BID CARLOS Vancomycin HCl (Vancomycin 1gm) 1 gm in 250 mls @ 167 mls/hr IVPB DAILY CARLOS PRN Reason: Protocol Piperacillin Sod/Tazobactam Sod (Zosyn 2.25 Gm In 0.9% 100 Ml) 2.25 gm in 100 mls @ 100 mls/hr IVPB Q12 CARLOS PRN Reason: Protocol Stop: 12/09/17 22:59 Insulin Human Regular (Humulin R Med) 0 units SC ACHS CARLOS PRN Reason: Protocol Latanoprost (Xalatan Opht) 0 ml OU HS CARLOS Morphine Sulfate (Morphine) 2 mg IVP Q4H PRN PRN Reason: Pain, severe (8-10) Last Admin: 12/09/17 02:11 Dose: 2 mg MAR Pain Assessment Document 12/09/17 02:11 IMT (Rec: 12/09/17 02:12 IMT [facility] [id number][place] Pain Reassessment Is this a pain reassessment? No Presence of Pain Presence of Pain Yes Pain Scale Used Pain Scale Used Numeric Location Left, Right or Bilateral Right Upper or Lower Lower Pain Location Body Site Leg Description Description Intermittent Intensity of Pain at present 8 Pain Behavior Guarding Restlessness Aggravating Factors ADL's Contant Alleviating Factors/Management Medication Techniques Alleviating Factors Medication IVP Administration Document 12/09/17 02:11 IMT (Rec: 12/09/17 02:12 IMT [facility] [id number]) Charges for Administration # of IVP Administrations 1 Non-Formulary Medication (Bimatoprost [Lumigan]) 1 drp OU HS CARLOS Oxycodone HCl (Oxycodone Immediate Release Tab) 5 mg PO Q6H PRN PRN Reason: Pain, moderate (4-7) Discontinued Medications Vancomycin HCl (Vancomycin 1gm) 1 gm in 250 mls @ 167 mls/hr IVPB STAT STA PRN Reason: Protocol Stop: 12/08/17 21:43 Last Admin: 12/09/17 02:07 Dose: 167 mls/hr eMAR Start Stop Document 12/09/17 02:07 IMT (Rec: 12/09/17 02:08 [id number]) Intravenous Solution Start Date 12/09/17 Start Time 02:08 End Date 12/09/17 End time 03:38 Total Infusion Time 90 Piperacillin Sod/Tazobactam Sod (Zosyn 3.375 In Ns 100ml) 100 mls @ 200 mls/hr IVPB STAT STA PRN Reason: Protocol Stop: 12/08/17 20:43 Last Admin: 12/08/17 21:18 Dose: 200 mls/hr eMAR Start Stop Document 12/08/17 21:18 IT (Rec: 12/08/17 21:18 IT [facility] [id number]) Intravenous Solution Start Date 12/08/17 Start Time 21:18 - Scribe Statement The provider has reviewed the documentation as recorded by the Fransisca Baig Provider Scribe Attestation: All medical record entries made by the Scribclive were at my direction and personally dictated by me. I have reviewed the chart and agree that the record accurately reflects my personal performance of the history, physical exam, medical decision making, and the department course for this patient. I have also personally directed, reviewed, and agree with the discharge instructions and disposition. Disposition/Present on Arrival - Present on Arrival Any Indicators Present on Arrival: Yes History of DVT/PE: No History of Uncontrolled Diabetes: Yes Urinary Catheter: No History of Decub. Ulcer: No History Surgical Site Infection Following: None - Disposition Have Diagnosis and Disposition been Completed?: Yes Diagnosis: Necrosis of finger, Renal failure Disposition: HOSPITALIZED Disposition Time: 20:00 Patient Plan: Admission Condition: FAIR
[2017-12-08] MEDS ORDERED: Vancomycin 1gm in NS 250ml 1 GM/250 ML BAG IVPB STA (20:14)
[2017-12-08] MEDS ORDERED: Piperacillin/Tazobact 3.375 gm 100 ML IVPB STA (20:14)
[2017-12-08 20:49] LABS: VENOUS BLOOD GAS BASE EXCESS 7.8 mmol/L (0.0-2.0); VENOUS BLOOD GAS PO2 59 mm/Hg (30-55); VENOUS BLOOD PH 7.41 (7.32-7.43)
[2017-12-08 21:04] LABS: ALB/GLOB RATIO 0.7 (1.1-1.8); ALBUMIN 3.7 g/dL (3.0-4.8); CALCIUM 8.9 mg/dL (8.4-10.5)
[2017-12-08 21:14] LABS: INR 1.96; PROTHROMBIN TIME 22.7 SECONDS (9.4-12.5)
[2017-12-08 21:20] LABS: BASO # 0.03 K/mm3 (0.0-2.0); BASO % 0.5 % (0.0-3.0); EOS # 0.1 (0.0-0.7); EOS % 1.2 % (1.5-5.0); GRAN # 4.25 (1.4-6.5); GRAN % 71.1 % (50.0-68.0); LYMPH # 0.9 (1.2-3.4); LYMPH % 14.6 % (22.0-35.0); MEAN CELL VOLUME 97.2 fl (80.0-105.0); MEAN CORPUSCULAR HEMOGLOBIN 31.3 pg (25.0-35.0); MEAN CORPUSCULAR HGB CONC 32.1 g/dl (31.0-37.0); MEAN PLATELET VOLUME 12.8 fl (7.0-11.0); MONO # 0.8 (0.1-0.6); MONO % 12.6 % (1.0-6.0); RBC 2.88 10^6/uL (3.5-6.1); RED CELL DISTRIBUTION WIDTH 19.1 % (11.5-14.5)
[2017-12-09] MEDS ORDERED: Oxycodone/Acetaminophen 5/325 mg Tab PO PRN (01:36)
[2017-12-09] MEDS ORDERED: Albuterol-Ipratrop 3 mg / 0.5 (3 ml) UD IH PRN (01:40)
[2017-12-09] MEDS: Morphine 2 mg/ml ISec IVP PRN ×4 (02:11→23:34)
[2017-12-09] MEDS: oxyCODONE 5 mg Immediate Release Tab PO PRN ×3 (05:28→17:08)
[2017-12-09 08:16] VITALS: RESP 18
[2017-12-09] MEDS: Insulin Reg-MEDIUM-Coverage SC SCH ×4 (08:29→21:41)
[2017-12-09] MEDS ORDERED: Vancomycin 1gm in NS 250ml 1 GM/250 ML BAG IVPB SCH (10:00)
[2017-12-09] MEDS ORDERED: Piperacillin/Tazobact 2.25gm 2.25 GM/100 ML BAG IVPB SCH (10:00)
--- NOTE | 2017-12-09 12:42 | RAD ---
PROCEDURE: Left Hand Radiographs. HISTORY: r/o osteomyelitis COMPARISON: None. FINDINGS: BONES: Normal. No fracture. JOINTS: Normal. No osteoarthritic changes. SOFT TISSUES: Normal. OTHER FINDINGS: None. IMPRESSION: Normal left hand radiographs.
[2017-12-09 16:34] VITALS: O2SAT 100
[2017-12-09] MEDS ORDERED: BIMATOPROST OU SCH (22:00)
[2017-12-09] MEDS ORDERED: Latanoprost 2.5 ml Opht Soln OU SCH (22:00)
--- NOTE | 2017-12-10 00:07 | HP ---
HISTORY OF PRESENT ILLNESS: Mr. Berger is a 52-year-old male admitted to the hospital because of the left long finger necrosis. He went for hemodialysis yesterday and the nurse referred him to the ED. He has issue with this finger for past few weeks. Denies any fever. No cough with expectoration. No abdominal pain. No nausea, no vomiting. End-stage renal disease on hemodialysis three times a week, history of CHF, COPD, history of hypertension and history of pancreatitis. PAST MEDICAL HISTORY: End-stage renal disease on hemodialysis, CHF, COPD, hypertension, diabetes mellitus type 2, history of pancreatitis, chronic anemia. PAST SURGICAL HISTORY: Cholecystectomy, removal of colon polyp. ALLERGIES: MULTIPLE ALLERGIES, INSULIN, PENICILLIN, MOXIFLOXACIN, INSULIN REGULAR, NOVOLIN. HOME MEDICATIONS: As per MAR. REVIEW OF SYSTEMS: As per HPI. Rest of 12-point review of systems reviewed negative. PHYSICAL EXAMINATION: GENERAL: Comfortable in bed, no acute distress. Facial puffiness present. VITAL SIGNS: Temperature 98.1, heart rate 84 per minute, respiratory 18 per minute, blood pressure 117/61, heart rate is 100% on room air. HEENT: Pallor positive. NECK: No lymphadenopathy. CHEST: Air entry present and equal bilaterally. No added sounds. CARDIOVASCULAR: S1, S2 normal. No murmur. No gallop. ABDOMEN: Soft, nontender. No hepatosplenomegaly. EXTREMITIES: No edema. SOUND EFFECTS SUPERVISOR: Alert and oriented x3. No focal, sensory or motor deficit. LABORATORY DATA: White count 6, hemoglobin 9, hematocrit 28, platelet 111, creatinine 2.7, potassium 3.5. Sodium 139. ASSESSMENT AND PLAN: 1. Left middle finger necrosis 2. Hemodialysis for end-stage renal disease. 3. Congestive heart failure. 4. Chronic obstructive pulmonary disease. 5. Diabetes mellitus type 2. 6. Chronic anemia. PLAN: He will be admitted to the hospital. He received a dose of vancomycin and Zosyn in the ED. We will consult Dr. Forbes for further recommendation of antibiotics. Consult Dr. Alfredo Wynn for necrosis of left finger. We will continue home medications, aspirin 81 mg daily, insulin sliding scale, hydralazine 25 mg p.o. b.i.d., morphine 2 mg every 4 hours p.r.n. for pain, Zofran 4 mg every 6 hours p.r.n. for nausea. Azalea Morris MD [email or web address]
[2017-12-10] MEDS ORDERED: DiphenhydrAMINE 50 mg/ml Inj IM ONE (00:15)
--- NOTE | 2017-12-10 01:43 | CON ---
DATE: 12/09/2017 CHIEF COMPLAINT: Left third finger infection, left third finger discoloration x1-week duration. HISTORY OF PRESENT ILLNESS: This is a 52-year-old male with past medical history significant for end-stage renal disease on hemodialysis, hypertension, severe peripheral arterial disease, coronary artery disease. The patient with a pacemaker, obstructive sleep apnea, diabetic neuropathy, anemia, severe pulmonary hypertension, who has had a history of right [id number] amputation and cardiac catheterization and stent placements, who was admitted on multiple admissions. The patient did have a history of Guerline glabrata fungemia, had a LASHAWN which was negative for endocarditis and had a peripheral line removed, was treated. The patient also had a transmetatarsal amputation initially and then a [id number]-[id number] amputation. On this admission, the patient was seen in the emergency room by Dr. Elliot Fitzpatrick and states that the patient had a finger and hand and wrist chief complaint, history of congestive heart failure, chronic obstructive lung disease, diabetes, hypertension, pancreatitis. REVIEW OF SYSTEMS: Reveals no fevers, no chills. No chest pain. A 12-point review of systems is performed. No abdominal pain, diarrhea or constipation. No bright blood per rectum. No melena. PAST MEDICAL HISTORY: Significant for end-stage kidney disease on hemodialysis, hypertension, severe peripheral arterial disease, coronary artery disease, congestive heart failure, chronic obstructive lung disease, pancreatitis, colon polyps, obstructive sleep apnea, diabetic neuropathy, anemia, severe pulmonary hypertension, Guerline glabrata fungemia, had a negative LASHAWN. PAST SURGICAL HISTORY: Significant for pacemaker, right [id number] amputation, cardiac stent placements and cholecystectomy. ALLERGIES: THE PATIENT IS ALLERGIC TO PENICILLIN, MOXIFLOXACIN, INSULIN. MEDICATIONS AT HOME: Reviewed and include oxycodone and aspirin and inhalers and Flomax and Lyrica, vitamins and Singulair and creatinine and Lipitor. PHYSICAL EXAMINATION: GENERAL: On exam, he is in bed, no acute distress, answering questions appropriately, comfortable. VITAL SIGNS: Temperature of 98, heart rate of 88 and respiratory rate of 18 and blood pressure is 140/50. HEENT: Examination of HEENT is unremarkable. NECK: Supple. LUNGS: Had decreased breath sounds. HEART: Normal S1, S2. ABDOMEN: Soft, nontender and organomegaly. No rebound or guarding. No masses. EXTREMITIES: Examination of left third finger has dry gangrene, is essentially gangrenous finger, however, is dry. No evidence of an active infection. LABORATORY DATA: Laboratory examination reveals a white count is 6. Sed rate is on 10. Coagulation is noted. Blood gases are reviewed. Chemistries are noted. Microbiology reveals multiple blood cultures have been negative since the Guerline glabrata and review of orders reveals blood cultures have been ordered and they have not been done and we will order them again. The patient was given a dose of vancomycin in the emergency room and started on Zosyn. The patient also had an x-ray of the hand, which showed normal x-ray of the hand, no osseous changes. ASSESSMENT AND PLAN: A 52-year-old male, end-stage renal disease on hemodialysis, end-stage peripheral arterial disease, coronary artery disease, congestive heart failure, chronic obstructive lung disease, obstructive sleep apnea, severe pulmonary hypertension, anemia, history of Guerline glabrata, fungemia with a negative transesophageal echocardiography, history of colon polyps, pancreatitis and WHO WAS ALLERGIC TO PENICILLIN, MOXIFLOXACIN, who was admitted now with a dry gangrene of the left third finger. I doubt at this point of any infectious etiology, most likely, underlying peripheral arterial disease with gangrene. Recommend vascular evaluation and we will discontinue the antibiotics. Awaiting for an input from Dr. Alfredo Wynn and we will order repeat blood cultures since the first cultures were not done and we will keep the patient off of antibiotics for this dry gangrene of the left third finger. We will follow closely with you. Case discussed with the patient and he is upset that he may be requiring amputation of the third finger. Jaspreet Forbes MD
[2017-12-10] MEDS: oxyCODONE 5 mg Immediate Release Tab PO PRN ×2 (03:27→09:30)
[2017-12-10] MEDS: Morphine 2 mg/ml ISec IVP PRN (06:06)
[2017-12-10 08:18] VITALS: BP 118/68; PULSE 87; TEMP 97.8
[2017-12-10] MEDS: Insulin Reg-MEDIUM-Coverage SC SCH ×2 (09:25→12:15)
--- NOTE | 2017-12-10 09:50 | CP.PCM.PN ---
Subjective - Date & Time of Evaluation Date of Evaluation: 12/10/17 Time of Evaluation: 09:46 - Subjective Subjective: HISTORY OF PRESENT ILLNESS: Mr. Berger is a 52-year-old male admitted to the hospital because of the left long finger necrosis. He went for hemodialysis yesterday and the nurse referred him to the ED. He has issue with this finger for past few weeks. Denies any fever. No cough with expectoration. No abdominal pain. No nausea, no vomiting. End-stage renal disease on hemodialysis three times a week, history of CHF, COPD, history of hypertension and history of pancreatitis. c/o nausea. takes zofran prior to meals. No pain. PAST MEDICAL HISTORY: End-stage renal disease on hemodialysis, CHF, COPD, hypertension, diabetes mellitus type 2, history of pancreatitis, chronic anemia. PAST SURGICAL HISTORY: Cholecystectomy, removal of colon polyp. ALLERGIES: MULTIPLE ALLERGIES, INSULIN, PENICILLIN, MOXIFLOXACIN, INSULIN REGULAR, NOVOLIN. HOME MEDICATIONS: As per MAR. REVIEW OF SYSTEMS: As per HPI. Rest of 12-point review of systems reviewed negative. PHYSICAL EXAMINATION: GENERAL: Comfortable in bed, no acute distress. Facial puffiness present. VITAL SIGNS: reviewed. HEENT: Pallor positive. NECK: No lymphadenopathy. CHEST: Air entry present and equal bilaterally. No added sounds. CARDIOVASCULAR: S1, S2 normal. No murmur. No gallop. ABDOMEN: Soft, nontender. No hepatosplenomegaly. EXTREMITIES: No edema. SOLID WASTE TECHNICIAN: Alert and oriented x3. No focal, sensory or motor deficit. LABORATORY DATA: reviewed. ASSESSMENT AND PLAN: 1. Left middle finger necrosis 2. Hemodialysis for end-stage renal disease. 3. Congestive heart failure. 4. Chronic obstructive pulmonary disease. 5. Diabetes mellitus type 2. 6. Chronic anemia. PLAN: He is off antibiotics. Evaluated by Dr. Dash. Consult Dr. Alfredo Wynn for necrosis of left finger. Doppler arterial left ext ordered. We will continue home medications, aspirin 81 mg daily, insulin sliding scale, hydralazine 25 mg p.o. b.i.d., morphine 2 mg every 4 hours p.r.n. for pain, Zofran 4 mg every 6 hours p.r.n. for nausea. Blood counts stable. Continue hemodialysis as per schedule. Azalea Morris MD Objective - Vital Signs/Intake and Output Vital Signs (last 24 hours): Temp Pulse Resp BP Pulse Ox 97.8 F 87 18 118/68 100 12/10/17 08:17 12/10/17 08:17 12/10/17 08:17 12/10/17 08:17 12/10/17 08:17 - Medications Medications: Current Medications Albuterol/Ipratropium (Duoneb 3 Mg/0.5 Mg (3 Ml) Ud) 3 ml IH [id number] PRN PRN Reason: Shortness of Breath Aspirin (Ecotrin) 81 mg PO DAILY [facility] Last Admin: 12/09/17 10:50 Dose: 81 mg Docusate Sodium (Colace) 100 mg PO DAILY [facility] Last Admin: 12/09/17 10:50 Dose: 100 mg Hydralazine HCl (Apresoline) 25 mg PO BID [facility] Last Admin: 12/09/17 17:09 Dose: 25 mg Insulin Human Regular (Humulin R Med) 0 units SC [facility] PRN Reason: Protocol Last Admin: 12/09/17 21:41 Dose: Not Given Latanoprost (Xalatan Opht) 0 ml OU HS [facility] Last Admin: 12/09/17 23:05 Dose: Not Given Morphine Sulfate (Morphine) 2 mg IVP Q4H PRN PRN Reason: Pain, severe (8-10) Last Admin: 12/10/17 06:06 Dose: 2 mg Ondansetron HCl (Zofran Inj) 4 mg IVP Q6H PRN PRN Reason: Nausea/Vomiting Last Admin: 12/09/17 17:08 Dose: 4 mg Oxycodone HCl (Oxycodone Immediate Release Tab) 5 mg PO Q6H PRN PRN Reason: Pain, moderate (4-7) Last Admin: 12/10/17 03:27 Dose: 5 mg - Labs Labs: 12/08/17 20:41 12/08/17 20:41 PT 22.7 SECONDS (9.4-12.5) H 12/08/17 20:41 INR 1.96 12/08/17 20:41
[2017-12-10] MEDS ORDERED: Bacitracin 500 Units/gm Oint Foilpak UD ONE (09:52)
--- NOTE | 2017-12-10 18:02 | PN ---
DATE: 12/10/2017 SUBJECTIVE: The patient is in bed, in no acute distress, nontoxic. PHYSICAL EXAMINATION: VITAL SIGNS: On exam, temperature is 97, blood pressure is 118/60, respiratory rate of 18. HEENT: Examination of HEENT is unremarkable. NECK: Supple. LUNGS: Have decreased breath sounds. HEART: Normal S1, S2. ABDOMEN: Soft, nontender. LABORATORY DATA: Laboratory examination reveals a white count of 6, hemoglobin of 9, platelets of 111. Review of orders reveals the patient to be off of antibiotics. ASSESSMENT AND PLAN: A 52-year-old male, multiple allergies, who has end-stage renal disease, on hemodialysis, end-stage peripheral arterial disease, coronary artery disease, congestive heart failure, chronic obstructive lung disease, obstructive sleep apnea, severe pulmonary hypertension, anemia, history of Guerline glabrata, fungemia and a negative transesophageal echocardiogram, history of colon polyps, pancreatitis, who is allergic to moxifloxacin, penicillin, who has now left third finger dry gangrene. Currently, has no evidence of an acute infection, although it has foul odors from the dry gangrene. No need for antibiotics at this point. We will check on the blood cultures. I doubt embolic in origin with this patient who has already had amputation of the lower extremity, which has been right [id number] amputation and severe peripheral arterial disease. Jaspreet Forbes MD
--- NOTE | 2017-12-13 21:06 | PQF ---
PROVIDER RESPONSE TEXT: Stage II sacral pressure ulcer REVIEWER QUERY TEXT: Pressure Ulcer Type Pressure ulcer is documented in the Medical Record. Please specify the location, present on admission status and/or stage: Location and laterality of pressure ulcer(s): POA status of each pressure ulcer: -- Not present on admission -- Present on admission -- Other -- Clinically unable to determine -- Unknown Stage of each pressure ulcer (National Pressure Ulcer Advisory Panel definitions): -- Stage I: Intact skin with non-blanchable redness of a localized area -- Stage II: Partial thickness skin loss involving dermis with a shallow open ulcer or an open serum -filled blister -- Stage III: Full thickness skin loss involving damage or necrosis of subcutaneous tissue -- Stage IV: Full thickness skin loss with exposed bone, tendon or muscle -- Unstageable: Full thickness tissue loss in which the base of the ulcer is covered by slough and/o r eschar in the wound bed The patient's Clinical Indicators include: Nurse's note of 12/09 documents stage II pressure ulcer of sacrum, which is not documented elsewhere. Do you agree, disagree with this pressure ulcer, stage and location? Thank you. Query created by: Mya Celis on 12/12/2017 12:12 PM Electronically signed by: Gallo Potter MD 12/13/2017 9:03 PM
== END 2017-12-10 14:51 | disposition left against medical advice (07) | DRG 299 ==
LOC: ED 18:57 → ERH 20:06 → 5RSO 23:23
PROVIDERS: ADMIT Internal Medicine Nephrology; ATTEND Internal Medicine Nephrology
DX: E11.52 Type 2 diabetes mellitus with diabetic peripheral angiopathy with gangrene (principal); N18.6 End stage renal disease; I13.2 Hypertensive heart and chronic kidney disease with heart failure and with stage 5 chronic kidney disease, or end stage renal disease; L08.9 Local infection of the skin and subcutaneous tissue, unspecified; E11.40 Type 2 diabetes mellitus with diabetic neuropathy, unspecified; E11.319 Type 2 diabetes mellitus with unspecified diabetic retinopathy without macular edema; G47.33 Obstructive sleep apnea (adult) (pediatric); E11.22 Type 2 diabetes mellitus with diabetic chronic kidney disease; I25.10 Atherosclerotic heart disease of native coronary artery without angina pectoris; D64.9 Anemia, unspecified; I27.20 Pulmonary hypertension, unspecified; I50.9 Heart failure, unspecified; J44.9 Chronic obstructive pulmonary disease, unspecified; K21.9 Gastro-esophageal reflux disease without esophagitis; N40.0 Benign prostatic hyperplasia without lower urinary tract symptoms; Z86.010 Personal history of colon polyps; Z86.73 Personal history of transient ischemic attack (TIA), and cerebral infarction without residual deficits; Z87.440 Personal history of urinary (tract) infections; Z88.0 Allergy status to penicillin; L89.152 Pressure ulcer of sacral region, stage 2; Z88.1 Allergy status to other antibiotic agents; Z89.511 Acquired absence of right leg below knee; Z95.5 Presence of coronary angioplasty implant and graft; Z99.2 Dependence on renal dialysis; Z98.49 Cataract extraction status, unspecified eye; Z96.1 Presence of intraocular lens; Z87.19 Personal history of other diseases of the digestive system

== ENCOUNTER 2017-12-13 15:17 | Inpatient (IN) | payer MEDICARE, OTHER ==
--- NOTE | 2017-12-13 15:29 | ED PDOC ---
Arrival/HPI - General Chief Complaint: Altered Mental Status Time Seen by Provider: 12/13/17 15:22 Historian: EMS - History of Present Illness Narrative History of Present Illness (Text): 52 y/o M w/ h/o IDDM, ESRD(HD on //Mon) s/p R YAMINI presenting to the ED for hypoglycemia. He was noted to be altered at home with blood sugar in the 30s. The patient's family noted the patient to be lethargic at home during the day, preventing him from going to dialysis stating the patient needed to rest. EMS was called and noted blood sugar was in the 20s. IV access was unobtainable and IM glucagon was administered. Of note, the patient was recently admitted for left finger necrosis on 12/08/17. A more complete HPI is unable to be obtained due to the patient' clinical condition Time/Duration: Prior to Arrival Symptom Onset: Sudden Symptom Course: Worsening Activities at Onset: Rest Context: Home Past Medical History - Provider Review Nursing Documentation Reviewed: Yes - Travel History Have you recently traveled outside [place] w/in the past 3 mons?: No - Past History Past History: No Previous - Infectious Disease Hx of Infectious Diseases: None - Tetanus Immunization Tetanus Immunization: Up to Date - Reproductive Currently Lactating: No - Cardiac Hx Congestive Heart Failure: Yes Hx Hypertension: Yes - Pulmonary Hx Chronic Obstructive Pulmonary Disease (COPD): Yes - Neurological HX Cerebrovascular Accident: Yes (r side weakness) - HEENT Hx HEENT Disorder: Yes (BILATERAL EYE WITH BLURRY VISION) Hx Cataracts: Yes (HAD SX 05/29/12, r with iol) Hx Epistaxis: Yes Other/Comment: left eye cornea transplant,RENAL RETINOPATHY, glasses, blurred vision - Renal Hx Renal Disorder: Yes Hx Dialysis: Yes (m,w,f) Date of Last Dialysis Treatment: 11/17/17 - Endocrine/Metabolic Hx Diabetes Mellitus Type 2: Yes - Hematological/Oncological Hx AIDS: No Hx Anemia: Yes Hx Blood Transfusions: Yes Hx Blood Transfusion Reaction: No - Integumentary Hx Dermatological Disorder: Yes - Musculoskeletal/Rheumatological Hx Falls: No - Gastrointestinal Hx Gastrointestinal Disorders: Yes (cdif 01/14/17) Hx Gall Bladder Disease: Yes (CHOLECYSTECTOMY) Hx Gastroesophageal Reflux: Yes Hx Liver Failure: Yes (CKD) Hx Pancreatitis: Yes Other/Comment: colon polyps, - Genitourinary/Gynecological Hx Genitourinary Disorders: Yes (esrd on HD MWF) Hx Hematuria: Yes Hx Prostate Problems: Yes (bph) Hx Urinary Tract Infection: Yes - Psychiatric Hx Psychophysiologic Disorder: Yes Hx Anxiety: Yes Hx Depression: No Hx Substance Use: No - Surgical History Hx Amputation: Yes (right bka) - Anesthesia Hx Anesthesia: Yes Hx Anesthesia Reactions: No Hx Malignant Hyperthermia: No - Suicidal Assessment Feels Threatened In Home Enviroment: No Family/Social History - Physician Review Nursing Documentation Reviewed: Yes Family/Social History: Unknown Family HX Smoking Status: Never Smoked Hx Alcohol Use: No Hx Substance Use: No Hx Substance Use Treatment: No Allergies/Home Meds Allergies/Adverse Reactions: Allergies insulin aspart [From Novolog] Allergy (Intermediate, Verified 12/13/17 15:49) RASH ANY INSULIN THAT STARTS WITH NOV- moxifloxacin Allergy (Intermediate, Verified 12/13/17 15:49) RASH Penicillins Allergy (Intermediate, Verified 12/13/17 15:49) RASH insulin regular [From Novolin R Regular U-100 Insuln] Allergy (Verified 12/13/17 15:49) ITCHING Home Medications: Home Meds Medication Instructions Recorded Confirmed Diclofenac Sodium [Voltaren] 1 appl TOP DAILY 06/14/17 11/19/17 Ergocalciferol (Vitamin D2) 50,000 unit PO WED 06/16/17 11/19/17 [Vitamin D2] Bimatoprost [Lumigan] 1 drp OU 07/05/17 11/19/17 Salmeterol Xinafoate/Fluticaso 1 puff IH BID 07/05/17 11/19/17 [Advair Hfa 230-21] Cetirizine HCl [Zyrtec] 10 mg PO DAILY 10/16/17 11/19/17 Fenofibrate [Triglide] 160 mg PO DAILY 10/16/17 11/19/17 Fluticasone Nasal [Flonase] 2 spr NS DAILY 10/16/17 11/19/17 Atorvastatin [Lipitor] 40 mg PO HS 11/02/17 11/19/17 Budesonide [Pulmicort Respules] 0.5 mg IH Q12H 11/02/17 11/19/17 Insulin Human NPH [Humulin N] 25 units SC QPM 11/02/17 11/19/17 Insulin Human Regular-HIGH See Protocol SC ACHS 11/02/17 11/19/17 [HumuLIN R HIGH] Latanoprost 0.005% Opht [Xalatan 1 drop OU HS 11/02/17 11/19/17 Opht] Loratadine [Claritin] 10 mg PO HS 11/02/17 11/19/17 Sodium Chloride Nasal [place] [[place] 1 ml NS Q2 PRN 11/02/17 11/19/17 Nasal [place]] oxyCODONE/Acetaminophen [Percocet 1 tab PO BID PRN 11/02/17 11/19/17 5/325 mg Tab] Review of Systems - Review of Systems Systems not reviewed;Unavailable: Altered Mental Status Physical Exam - Physical Exam Physical Exam Limitations: Altered Mental Status Temperature: Afebrile Blood Pressure: Normal Pulse: Regular Respiratory Rate: Normal Appearance: Positive for: Ill-Appearing, Uncomfortable Mental Status: Positive for: Confused - Systems Exam Head: Present: Atraumatic, Normocephalic Pupils: Present: PERRL Extroacular Muscles: Present: EOMI Mouth: Present: Moist Mucous Membranes Neck: Present: Normal Range of Motion Respiratory/Chest: Present: Decreased Breath Sounds (secondary to body habitus), Rhonchi. No: Good Air Exchange, Respiratory Distress, Wheezes Cardiovascular: Present: Regular Rate and Rhythm, Normal S1, S2 Abdomen: Present: Distention, Normal Bowel Sounds. No: Tenderness, Peritoneal Signs Upper Extremity: Present: Deformity (Necrosis of L ring finger noted) Lower Extremity: Present: Deformity (R BKA w/ surgical fitz in place) Skin: Present: Warm, Dry, Normal Color Psychiatric: Present: Lethargic (redirectable and able to follow verbal commands w/ sternal rub) Medical Decision Making ED Course and Treatment: Impression 52 y/o M w/ h/o CHF & DM presenting w/ hypoglycemic episodes Plan --Labs --CTH --D51/2NS gtt --CXR --VBG --D50 --UA/Urine culture --Blood culture Progress Notes 12/13/17 16:42 VBG reveals blood sugar of 29. D51/2NS ordered. Patient noted to be hypothermic. Atif minor ordered. Will continue checking FSG Q1H. Call placed to Dr. Villar(hospitalist) & senior support analyst. 12/13/17 16:[address] Villar(internal medicine) who is aware of patient's clinical plan. Awaiting ICU evaluation. 12/13/17 17:[address] Abad(senior support analyst) who will come evaluate patient. 12/13/17 17:28 Repeat fingerstick 139. Patient evaluated by Dr. Abad who states patient may be monitored on the floor under Telemetry. - Lab Interpretations I have reviewed the lab results: Yes - RAD Interpretation Narrative RAD Interpretations (Text): 12/13/17 17:[address] without Contrast: Dictator : Wil Coel MD FINDINGS: HEMORRHAGE: No intracranial hemorrhage. BRAIN: No mass effect or edema. Mild atrophy. Chronic microvascular ischemic changes. VENTRICLES: Unremarkable. No hydrocephalus. CALVARIUM: Unremarkable. PARANASAL SINUSES:Unremarkable as visualized. No significant inflammatory changes. MASTOID AIR CELLS: Unremarkable as visualized. No inflammatory changes. OTHER FINDINGS: None. IMPRESSION: No acute intracranial pathology. Age-related changes. Tube Splicer: Radiologist - Scribe Statement The provider has reviewed the documentation as recorded by the Scribe Marciano Pete Provider Scribe Attestation: All medical record entries made by the Scribe were at my direction and personally dictated by me. I have reviewed the chart and agree that the record accurately reflects my personal performance of the history, physical exam, medical decision making, and the department course for this patient. I have also personally directed, reviewed, and agree with the discharge instructions and disposition. Disposition/Present on Arrival - Present on Arrival Any Indicators Present on Arrival: Yes History of DVT/PE: No History of Uncontrolled Diabetes: Yes Urinary Catheter: No History Surgical Site Infection Following: None - Disposition Have Diagnosis and Disposition been Completed?: Yes Diagnosis: Hypoglycemia, Hypothermia Disposition: HOSPITALIZED Disposition Time: 17:28 Condition: IMPROVED Forms: [employer] (Italian)
[2017-12-13 15:49] VITALS: BMI 27.4
[2017-12-13] MEDS ORDERED: Dextrose 50% SYRINGE Inj (50 ml) IV ONE (15:57)
[2017-12-13] MEDS ORDERED: Sodium Chloride 0.9% 1,000 ML IV STA (16:00)
[2017-12-13 16:05] LABS: VENOUS BLOOD GAS BASE EXCESS 5.8 mmol/L (0.0-2.0); VENOUS BLOOD GAS PO2 152 mm/Hg (30-55); VENOUS BLOOD PH 7.43 (7.32-7.43)
[2017-12-13 16:05] LABS: BASO # 0.02 K/mm3 (0.0-2.0); BASO % 0.3 % (0.0-3.0); EOS # 0.1 (0.0-0.7); EOS % 0.9 % (1.5-5.0); GRAN # 6.35 (1.4-6.5); GRAN % 79.5 % (50.0-68.0); HEMOGLOBIN 8.8 g/dL (14.0-18.0); LYMPH # 0.8 (1.2-3.4); LYMPH % 9.8 % (22.0-35.0); MEAN CELL VOLUME 94.3 fl (80.0-105.0); MEAN CORPUSCULAR HEMOGLOBIN 31.5 pg (25.0-35.0); MEAN CORPUSCULAR HGB CONC 33.5 g/dl (31.0-37.0); MONO # 0.8 (0.1-0.6); MONO % 9.5 % (1.0-6.0); PLATELET COUNT 306 10^3/uL (120.0-450.0); RBC 2.79 10^6/uL (3.5-6.1); RED CELL DISTRIBUTION WIDTH 21.6 % (11.5-14.5)
[2017-12-13] MEDS ORDERED: Dextrose 5%/0.45% NS 1,000 ML IV STA (16:07)
--- NOTE | 2017-12-13 17:21 | CT ---
Date of service: 12/13/2017 PROCEDURE: CT HEAD WITHOUT CONTRAST. HISTORY: AMS COMPARISON: CT head dated 08/17/2017. TECHNIQUE: Axial computed tomography images were obtained through the head/brain without intravenous contrast. Radiation dose: Total exam DLP = 962.8 mGy-cm. This CT exam was performed using one or more of the following dose reduction techniques: Automated exposure control, adjustment of the mA and/or kV according to patient size, and/or use of iterative reconstruction technique. FINDINGS: HEMORRHAGE: No intracranial hemorrhage. BRAIN: No mass effect or edema. Mild atrophy. Chronic microvascular ischemic changes. VENTRICLES: Unremarkable. No hydrocephalus. CALVARIUM: Unremarkable. PARANASAL SINUSES: Unremarkable as visualized. No significant inflammatory changes. MASTOID AIR CELLS: Unremarkable as visualized. No inflammatory changes. OTHER FINDINGS: None. IMPRESSION: No acute intracranial pathology. Age-related changes.
--- NOTE | 2017-12-13 17:49 | CP.PCM.CON ---
History of Present Illness - History of Present Illness History of Present Illness: MICU Consult Note HPI Patient is 52 year old male w/PMHx COPD, CAD with 4 stents, recently placed PPM, ESRD on HD MWF, IDDM2 and HTN who presents from home with hypoglycemia and AMS. Pt's FS noted to be in 20s, poor IV access, given IM Glucagon. In the ER patients FS 149, 139, patient drowsy, but arousable, answers questions, no major complaints. No endorsed history of fever, chills, cough, chest pain, sob, MOON, dizziness. PMhx OPD, CAD with 4 stents, recently placed PPM, ESRD on HD MWF, IDDM2 and HTN PShx R BKA Meds as per EMR FHx NC Social denies smoking, etoh, drug use ROS as above Review of Systems - Review of Systems Review of Systems: as per HPI Past Patient History - Infectious Disease Hx of Infectious Diseases: None - Tetanus Immunizations Tetanus Immunization: Up to Date - Past Medical History & Family History Past Medical History?: Yes - Past Social History Smoking Status: Never Smoked - CARDIAC Hx Congestive Heart Failure: Yes Hx Hypertension: Yes - PULMONARY Hx Chronic Obstructive Pulmonary Disease (COPD): Yes - NEUROLOGICAL HX Cerebrovascular Accident: Yes (r side weakness) - HEENT Hx HEENT Problems: Yes (BILATERAL EYE WITH BLURRY VISION) Hx Cataracts: Yes (HAD SX 05/29/12, r with iol) Hx Epistaxis: Yes Other/Comment: left eye cornea transplant,RENAL RETINOPATHY, glasses, blurred vision - RENAL Hx Chronic Kidney Disease: Yes Hx Dialysis: Yes (m,w,f) Date of Last Dialysis Treatment: 11/17/17 - ENDOCRINE/METABOLIC Hx Diabetes Mellitus Type 2: Yes - HEMATOLOGICAL/ONCOLOGICAL Hx AIDS: No Hx Anemia: Yes Hx Blood Transfusions: Yes Hx Blood Transfusion Reaction: No - INTEGUMENTARY Hx Dermatological Problems: Yes - MUSCULOSKELETAL/RHEUMATOLOGICAL Hx Falls: No - GASTROINTESTINAL Hx Gastrointestinal Disorders: Yes (cdif 01/14/17) Hx Gall Bladder Disease: Yes (CHOLECYSTECTOMY) Hx Gastroesophageal Reflux: Yes Hx Liver Failure: Yes (CKD) Hx Pancreatitis: Yes Other/Comment: colon polyps, - GENITOURINARY/GYNECOLOGICAL Hx Genitourinary Disorders: Yes (esrd on HD MWF) Hx Hematuria: Yes Hx Prostate Problems: Yes (bph) Hx Urinary Tract Infection: Yes - PSYCHIATRIC Hx Psychophysiologic Disorder: Yes Hx Anxiety: Yes Hx Depression: No Hx Substance Use: No - SURGICAL HISTORY Hx Amputation: Yes (right bka) - ANESTHESIA Hx Anesthesia: Yes Hx Anesthesia Reactions: No Hx Malignant Hyperthermia: No Meds Allergies/Adverse Reactions: Allergies Allergy/AdvReac Type Severity Reaction Status Date / Time insulin aspart [From Novolog] Allergy Intermediate RASH Verified 12/13/17 15:49 moxifloxacin Allergy Intermediate RASH Verified 12/13/17 15:49 Penicillins Allergy Intermediate RASH Verified 12/13/17 15:49 insulin regular Allergy ITCHING Verified 12/13/17 15:49 [From Novolin R Regular U-100 Insuln] - Medications Medications: Current Medications Dextrose/Sodium Chloride (Dextrose 5%/0.45% Ns 1000 Ml) 1,000 mls @ 100 mls/hr IV .Q10H STA Stop: 12/14/17 02:06 Last Admin: 12/13/17 16:15 Dose: 100 mls/hr Physical Exam - Constitutional Appears: Non-toxic, No Acute Distress, Older Than Stated Age, Chronically Ill - Head Exam Head Exam: NORMAL INSPECTION - Eye Exam Eye Exam: Normal appearance - ENT Exam ENT Exam: Mucous Membranes Dry - Neck Exam Neck exam: Positive for: Full Rom - Respiratory Exam Respiratory Exam: Clear to Auscultation Bilateral, NORMAL BREATHING PATTERN - Cardiovascular Exam Cardiovascular Exam: REGULAR RHYTHM, +S1, +S2 - GI/Abdominal Exam GI & Abdominal Exam: Normal Bowel Sounds, Soft - Extremities Exam Additional comments: R BKA - Psychiatric Exam Psychiatric exam: Anxious Results - Vital Signs Recent Vital Signs: Last Vital Signs Temp 94.2 F L 12/13/17 16:27 Pulse 90 12/13/17 15:34 Resp 18 12/13/17 15:34 BP 114/40 L 12/13/17 15:34 Pulse Ox 98 12/13/17 15:34 - Labs Result Diagrams: 12/13/17 15:55 Labs: Laboratory Results - last 24 hr 12/13/17 12/13/17 12/13/17 15:48 15:55 16:00 WBC 8.0 D RBC 2.79 L Hgb 8.8 L Hct 26.3 L MCV 94.3 MCH 31.5 MCHC 33.5 RDW 21.6 H Plt Count 306 Gran % 79.5 H Lymph % (Auto) 9.8 L [place] % (Auto) 9.5 H Eos % (Auto) 0.9 L Baso % (Auto) 0.3 Gran # 6.35 Lymph # (Auto) 0.8 L [place] # (Auto) 0.8 H Eos # (Auto) 0.1 Baso # (Auto) 0.02 pO2 152 H VBG pH 7.43 VBG pCO2 47.0 VBG HCO3 31.2 H VBG Total CO2 32.6 H VBG O2 Sat (Calc) 99.0 H VBG Base Excess 5.8 H VBG Potassium 5.7 H Sodium 136.0 Chloride 105.0 Glucose 39 L* D Lactate 1.0 FiO2 21.0 POC Glucose (mg/dL) 149 H Venous Blood Potassium 5.7 H Assessment & Plan - Assessment and Plan (Free Text) Assessment: Patient is 52 yo male with PMhx COPD, CAD with 4 stents, recently placed PPM, ESRD on HD MWF, IDDM2 and HTN a/w hypoglycemia, and mild hypothermia Hypoglycemia, resolved Hypothermia CAD ESRD on HD HTN IDDM - currently T 94.2, BP stable SBP 120s, HR 70s, patient sleeping, but wakes up, answers questions, FS 149, 139 - CT head done, read pending - wnl WBC - CMP pending Recommend: - supp o2 as needed, duonebs PRN, BIPAP at night - panculture, UCx, BCx, Check Procal, obtain CXR - BP control - FS monitoring - D51/2NS - hold Insulin - repeat rectal temp - bear hugger as needed - would give SoluCortef 50mg IV q6hr - obtain CMP - HD as per renal - GI ppx - DVT ppx - Monitor on tele
[2017-12-13 18:04] LABS: ALB/GLOB RATIO 0.6 (1.1-1.8); ALBUMIN 2.7 g/dL (3.0-4.8); CALCIUM 8.5 mg/dL (8.4-10.5)
[2017-12-13 18:07] LABS: INR 1.85; PARTIAL THROMBOPLASTIN TIME 37.2 Seconds (25.1-36.5); PROTHROMBIN TIME 21.4 SECONDS (9.4-12.5)
[2017-12-13 18:35] LABS: TROPONIN I 0.14 ng/mL
[2017-12-13] MEDS: Oxycodone/Acetaminophen 5/325 mg Tab PO PRN (23:08)
[2017-12-13] MEDS: Insulin Reg-MEDIUM-Coverage SC SCH (23:10)
[2017-12-13] MEDS: Dextrose 5%/0.9% NS 1,000 ML IV SCH (23:34)
[2017-12-14] MEDS: Oxycodone/Acetaminophen 5/325 mg Tab PO PRN ×3 (05:05→19:06)
--- NOTE | 2017-12-14 06:18 | CP.PCM.CON ---
History of Present Illness - History of Present Illness History of Present Illness: General Surgery Consult note for Dr. Urrutia Consulted for: Necrotic Left finger Patient is a 52M with PMH of ESRD on HD, PAD, DM, CAD s/p drug eluting stent placement 7 months ago currently on ASA, CHF, COPD, and TIA who is well known to the service. He was admitted for a hypoglycemia and hypotension. He is being seen by Dr. Urrutia in office with surgical planning for amputation of his left finger. Patient reports fever and chills at home intermittently with last fever on monday of 101 f, and reports chronic SOB Patient denies any CP, or any other symptoms PMH of ESRD on HD, PAD, DM, CAD s/p stents, CHF, COPD, and TIA PSH: L eye cornea transplant, AV Fistula, Cholecystectomy, Right BKA Allerg: Aspart, moxifloxacin, penicillin, regular insulin Review of Systems - Review of Systems All systems: reviewed and no additional remarkable complaints except - Constitutional Constitutional: Chills, Fever - EENT Eyes: absent: Blind Spots Ears: absent: Tinnitus - Cardiovascular Cardiovascular: Dyspnea. absent: Chest Pain - Respiratory Respiratory: Dyspnea - Gastrointestinal Gastrointestinal: absent: Abdominal Pain, Belching, Bloating, Nausea, Vomiting - Musculoskeletal Musculoskeletal: Arthralgias Past Patient History - Infectious Disease Hx of Infectious Diseases: None - Tetanus Immunizations Tetanus Immunization: Up to Date - Past Medical History & Family History Past Medical History?: Yes - Past Social History Smoking Status: Never Smoked - CARDIAC Hx Cardiac Disorders: Yes (mi) Hx Angina: No Hx Cardia Arrhythmia: Yes Hx Circulatory Problems: Yes Hx Congestive Heart Failure: Yes Hx Heart Murmur: Yes Hx Heart Transplant: Yes Hx Hypercholesterolemia: Yes Hx Hypertension: Yes Hx Internal Defibrillator: Yes Hx Pacemaker: Yes (medtronic) Hx Peripheral Edema: Yes Hx Peripheral Vascular Disease: Yes - PULMONARY Hx Respiratory Disorders: Yes Hx Asthma: Yes Hx Bronchitis: Yes Hx Chronic Obstructive Pulmonary Disease (COPD): Yes Hx Pneumonia: Yes Hx Respiratory Aspiration: No Hx Respiratory Tract Infection: Yes Hx Sleep Apnea: Yes Hx Tuberculosis: No - NEUROLOGICAL Hx Neurological Disorder: Yes HX Cerebrovascular Accident: Yes Hx Transient Ischemic Attacks (TIA): Yes - HEENT Hx HEENT Problems: Yes Hx Blind: No Hx Cataracts: Yes Hx Deafness: No Hx Difficulty Chewing: No - RENAL Hx Chronic Kidney Disease: Yes Hx Dialysis: Yes Hx Kidney Stones: Yes Hx Renal Failure: Yes - ENDOCRINE/METABOLIC Hx Endocrine Disorders: Yes Hx Adrenal Cancer: No Hx Diabetes Insipidus: Yes Hx Diabetes Mellitus Type 1: Yes Hx Hypothyroidism: Yes Hx Systemic Lupus Erythematosus: No - HEMATOLOGICAL/ONCOLOGICAL Hx AIDS: No Hx Anemia: Yes Hx Blood Transfusions: Yes Hx Blood Transfusion Reaction: No - INTEGUMENTARY Hx Dermatological Problems: No - MUSCULOSKELETAL/RHEUMATOLOGICAL Hx Musculoskeletal Disorders: Yes Hx Arthritis: Yes Hx Back Pain: Yes Hx Falls: Yes Hx Fractures: Yes Hx Gout: Yes Hx Unsteady Gait: Yes - GASTROINTESTINAL Hx Gastrointestinal Disorders: Yes Hx Colostomy: No Hx Liver Failure: Yes Hx Pancreatitis: Yes - GENITOURINARY/GYNECOLOGICAL Hx Genitourinary Disorders: Yes Hx Hematuria: Yes - PSYCHIATRIC Hx Psychophysiologic Disorder: Yes Hx Anxiety: Yes - SURGICAL HISTORY Hx Surgeries: Yes Hx Amputation: Yes Hx Cardiac Catheterization: Yes Hx Cholecystectomy: Yes Hx Coronary Stent: Yes Hx Musculoskeletal Surgery: Yes - ANESTHESIA Hx Anesthesia: Yes Hx Anesthesia Reactions: No Hx Malignant Hyperthermia: No Meds Allergies/Adverse Reactions: Allergies Allergy/AdvReac Type Severity Reaction Status Date / Time insulin aspart [From Novolog] Allergy Intermediate RASH Verified 12/13/17 15:49 moxifloxacin Allergy Intermediate RASH Verified 12/13/17 15:49 Penicillins Allergy Intermediate RASH Verified 12/13/17 15:49 insulin regular Allergy ITCHING Verified 12/13/17 15:49 [From Novolin R Regular U-100 Insuln] - Medications Medications: Current Medications Acetaminophen (Tylenol 325mg Tab) 650 mg PO Q4 PRN PRN Reason: Pain, Mild (1-3) Aspirin (Ecotrin) 81 mg PO DAILY [facility] Atorvastatin Calcium (Lipitor) 40 mg PO HS [facility] Last Admin: 12/13/17 23:08 Dose: 40 mg Hydrocortisone Sodium Succinate (Solu-Cortef) 100 mg IVP Q6H CARLOS Stop: 12/14/17 18:00 Last Admin: 12/14/17 02:58 Dose: 100 mg Dextrose/Sodium Chloride (Dextrose 5%/0.9% Ns 1000 Ml) 1,000 mls @ 50 mls/hr IV .Q20H CARLOS Last Admin: 12/13/17 23:34 Dose: Not Given Insulin Human Regular (Humulin R Med) 0 units SC [facility]; Protocol Last Admin: 12/13/17 23:10 Dose: Not Given Metoprolol Tartrate (Lopressor) 25 mg PO BID [facility] Last Admin: 12/13/17 23:09 Dose: 25 mg Montelukast Sodium (Singulair) 10 mg PO HS [facility] Last Admin: 12/13/17 23:08 Dose: 10 mg Fenofibrate [ Triglide] 160 Mg ( Home Med) 160 mg PO DAILY [facility] Oxycodone/Acetaminophen (Percocet 5/325 Mg Tab) 1 tab PO Q6 PRN PRN Reason: Pain, moderate (4-7) Stop: 12/17/17 00:01 Last Admin: 12/14/17 05:05 Dose: 1 tab Sevelamer HCl (Renagel) 1,600 mg PO WM [facility] Physical Exam - Constitutional Appears: Non-toxic, No Acute Distress - Head Exam Head Exam: ATRAUMATIC, NORMOCEPHALIC - Eye Exam Eye Exam: EOMI - ENT Exam ENT Exam: Mucous Membranes Moist - Respiratory Exam Respiratory Exam: NORMAL BREATHING PATTERN - Cardiovascular Exam Cardiovascular Exam: +S1, +S2 - GI/Abdominal Exam GI & Abdominal Exam: Soft. absent: Distended, Firm, Guarding, Hernia, Tenderness - Neurological Exam Neurological exam: Alert, Oriented x3 - Psychiatric Exam Psychiatric exam: Normal Affect, Normal Mood - Skin Skin Exam: Dry, Intact Results - Vital Signs Recent Vital Signs: Last Vital Signs Temp 96.9 F L 12/13/17 21:03 Pulse 68 12/13/17 23:09 Resp 19 12/14/17 03:08 BP 139/50 L 12/13/17 23:09 Pulse Ox 97 12/13/17 21:03 - Labs Result Diagrams: 12/13/17 15:55 12/13/17 17:49 Labs: Laboratory Results - last 24 hr 12/13/17 12/13/17 12/13/17 15:48 15:55 16:00 WBC 8.0 D RBC 2.79 L Hgb 8.8 L Hct 26.3 L MCV 94.3 MCH 31.5 MCHC 33.5 RDW 21.6 H Plt Count 306 Gran % 79.5 H Lymph % (Auto) 9.8 L [place] % (Auto) 9.5 H Eos % (Auto) 0.9 L Baso % (Auto) 0.3 Gran # 6.35 Lymph # (Auto) 0.8 L [place] # (Auto) 0.8 H Eos # (Auto) 0.1 Baso # (Auto) 0.02 PT INR APTT pO2 152 H VBG pH 7.43 VBG pCO2 47.0 VBG HCO3 31.2 H VBG Total CO2 32.6 H VBG O2 Sat (Calc) 99.0 H VBG Base Excess 5.8 H VBG Potassium 5.7 H Sodium 136.0 Chloride 105.0 Glucose 39 L* D Lactate 1.0 FiO2 21.0 Potassium Carbon Dioxide Anion Gap BUN Creatinine Est GFR ( Amer) Est GFR (Non-Af Amer) POC Glucose (mg/dL) 149 H Random Glucose Calcium Magnesium Total Bilirubin AST ALT Alkaline Phosphatase Troponin I NT-Pro-B Natriuret Pep Total Protein Albumin Globulin Albumin/Globulin Ratio Venous Blood Potassium 5.7 H 12/13/17 12/13/17 12/13/17 17:49 17:49 21:51 WBC RBC Hgb Hct MCV MCH MCHC RDW Plt Count Gran % Lymph % (Auto) [place] % (Auto) Eos % (Auto) Baso % (Auto) Gran # Lymph # (Auto) [place] # (Auto) Eos # (Auto) Baso # (Auto) PT 21.4 H INR 1.85 APTT 37.2 H pO2 VBG pH VBG pCO2 VBG HCO3 VBG Total CO2 VBG O2 Sat (Calc) VBG Base Excess VBG Potassium Sodium 139 Chloride 99 Glucose Lactate FiO2 Potassium 4.5 Carbon Dioxide 29 Anion Gap 16 BUN 60 H Creatinine 6.0 H Est GFR ( Amer) 12 Est GFR (Non-Af Amer) 10 POC Glucose (mg/dL) 93 Random Glucose 117 H Calcium 8.5 Magnesium 2.1 Total Bilirubin 0.9 AST 71 H ALT 31 Alkaline Phosphatase 70 Troponin I 0.14 H* D NT-Pro-B Natriuret Pep 12086 H Total Protein 6.9 Albumin 2.7 L Globulin 4.2 Albumin/Globulin Ratio 0.6 L Venous Blood Potassium 12/13/17 22:17 WBC RBC Hgb Hct MCV MCH MCHC RDW Plt Count Gran % Lymph % (Auto) [place] % (Auto) Eos % (Auto) Baso % (Auto) Gran # Lymph # (Auto) [place] # (Auto) Eos # (Auto) Baso # (Auto) PT INR APTT pO2 VBG pH VBG pCO2 VBG HCO3 VBG Total CO2 VBG O2 Sat (Calc) VBG Base Excess VBG Potassium Sodium Chloride Glucose Lactate FiO2 Potassium Carbon Dioxide Anion Gap BUN Creatinine Est GFR ( Amer) Est GFR (Non-Af Amer) POC Glucose (mg/dL) 104 Random Glucose Calcium Magnesium Total Bilirubin AST ALT Alkaline Phosphatase Troponin I NT-Pro-B Natriuret Pep Total Protein Albumin Globulin Albumin/Globulin Ratio Venous Blood Potassium Assessment & Plan - Assessment and Plan (Free Text) Assessment: 52M with necrotic RUE digits NPO ABX Control sugers per primary P/U clearance for digital amputation Further recs for Dr. Urrutia [phone]
[2017-12-14] MEDS: Insulin Reg-MEDIUM-Coverage SC SCH ×4 (08:22→22:49)
--- NOTE | 2017-12-14 09:19 | CARD ---
APPROVED REPORT Date of service: 12/13/2017 EKG Measurement Heart [id number] <Conclusion> Electronic ventricular pacemaker: 100% V. Paced, A. Sensed No change
[2017-12-14 10:06] LABS: ALB/GLOB RATIO 0.7 (1.1-1.8); ALBUMIN 2.7 g/dL (3.0-4.8); CALCIUM 8.6 mg/dL (8.4-10.5)
--- NOTE | 2017-12-14 10:18 | CP.PCM.HP ---
<Lolis Rivas - Last Filed: 12/14/17 16:14> History of Present Illness - History of Present Illness History of Present Illness: H&P for Simon Valenzuela PGY3 This is a 52yo male with past medical history of ESRD on HD, PAD, CAD, COPD, CHF, pacer placement who was brought to ED because he was found on the floor. Patient was found to be confused, hypoglycemic and hypothermic. He states he did not eat much yesterday and then took his night time insulin before bed and the next thing he remember was that he was in the ED. He did not remember falling or hitting his head. Patient was given glucagon and sugars increased. He also was recently in the hospital for L necrotic middle finger that was supposed to be amputated, but patient left AMA. He does not remember if went to HD yesterday. Patient denies chest pain, shortness of breath, nausea/vomiting/diarrhea, fever/chills, numbness/tingling, abdominal pain. He has pain in his L hand. Past medical history: ESRD on HD (MWF), PAD, IDDM, CHF, COPD, CAD s/p stents, pacer Past surgical history: L AVF, cholecystectomy, R BKA, L cornea transplant, pacer Home meds: reviewed as per MAR Allergies: insulin (aspart and regular), penicillin, moxifloxacin Social history: Denies EtOH, tobacco or drug use Family history: Mom: ESRD, end stage coronary disease Present on Admission - Present on Admission Any Indicators Present on Admission: No Review of Systems - Review of Systems All systems: reviewed and no additional remarkable complaints except Review of Systems: 12 point ROS reviewed as per HPI and is otherwise negative. Past Patient History - Infectious Disease Hx of Infectious Diseases: None - Tetanus Immunizations Tetanus Immunization: Up to Date - Past Medical History & Family History Past Medical History?: Yes - Past Social History Smoking Status: Never Smoked - CARDIAC Hx Cardiac Disorders: Yes (mi) Hx Angina: No Hx Cardia Arrhythmia: Yes Hx Circulatory Problems: Yes Hx Congestive Heart Failure: Yes Hx Heart Murmur: Yes Hx Heart Transplant: Yes Hx Hypercholesterolemia: Yes Hx Hypertension: Yes Hx Internal Defibrillator: Yes Hx Pacemaker: Yes (medtronic) Hx Peripheral Edema: Yes Hx Peripheral Vascular Disease: Yes - PULMONARY Hx Respiratory Disorders: Yes Hx Asthma: Yes Hx Bronchitis: Yes Hx Chronic Obstructive Pulmonary Disease (COPD): Yes Hx Pneumonia: Yes Hx Respiratory Aspiration: No Hx Respiratory Tract Infection: Yes Hx Sleep Apnea: Yes Hx Tuberculosis: No - NEUROLOGICAL Hx Neurological Disorder: Yes HX Cerebrovascular Accident: Yes Hx Transient Ischemic Attacks (TIA): Yes - HEENT Hx HEENT Problems: Yes Hx Blind: No Hx Cataracts: Yes Hx Deafness: No Hx Difficulty Chewing: No - RENAL Hx Chronic Kidney Disease: Yes Hx Dialysis: Yes Hx Kidney Stones: Yes Hx Renal Failure: Yes - ENDOCRINE/METABOLIC Hx Endocrine Disorders: Yes Hx Adrenal Cancer: No Hx Diabetes Insipidus: Yes Hx Diabetes Mellitus Type 1: Yes Hx Hypothyroidism: Yes Hx Systemic Lupus Erythematosus: No - HEMATOLOGICAL/ONCOLOGICAL Hx AIDS: No Hx Anemia: Yes Hx Blood Transfusions: Yes Hx Blood Transfusion Reaction: No - INTEGUMENTARY Hx Dermatological Problems: No - MUSCULOSKELETAL/RHEUMATOLOGICAL Hx Musculoskeletal Disorders: Yes Hx Arthritis: Yes Hx Back Pain: Yes Hx Falls: Yes Hx Fractures: Yes Hx Gout: Yes Hx Unsteady Gait: Yes - GASTROINTESTINAL Hx Gastrointestinal Disorders: Yes Hx Colostomy: No Hx Liver Failure: Yes Hx Pancreatitis: Yes - GENITOURINARY/GYNECOLOGICAL Hx Genitourinary Disorders: Yes Hx Hematuria: Yes - PSYCHIATRIC Hx Psychophysiologic Disorder: Yes Hx Anxiety: Yes - SURGICAL HISTORY Hx Surgeries: Yes Hx Amputation: Yes Hx Cardiac Catheterization: Yes Hx Cholecystectomy: Yes Hx Coronary Stent: Yes Hx Musculoskeletal Surgery: Yes - ANESTHESIA Hx Anesthesia: Yes Hx Anesthesia Reactions: No Hx Malignant Hyperthermia: No Meds Allergies/Adverse Reactions: Allergies Allergy/AdvReac Type Severity Reaction Status Date / Time insulin aspart [From Novolog] Allergy Intermediate RASH Verified 12/13/17 15:49 moxifloxacin Allergy Intermediate RASH Verified 12/13/17 15:49 Penicillins Allergy Intermediate RASH Verified 12/13/17 15:49 insulin regular Allergy ITCHING Verified 12/13/17 15:49 [From Novolin R Regular U-100 Insuln] Physical Exam - Constitutional Appears: No Acute Distress - Head Exam Head Exam: ATRAUMATIC, NORMAL INSPECTION, NORMOCEPHALIC - Eye Exam Eye Exam: Normal appearance, PERRL Pupil Exam: NORMAL ACCOMODATION - ENT Exam ENT Exam: Mucous Membranes Moist - Respiratory Exam Respiratory Exam: Clear to Auscultation Bilateral, NORMAL BREATHING PATTERN. absent: Rales, Rhonchi, Wheezes - Cardiovascular Exam Cardiovascular Exam: REGULAR RHYTHM, +S1, +S2. absent: Gallop, Rubs, Systolic Murmur - GI/Abdominal Exam GI & Abdominal Exam: Normal Bowel Sounds, Soft. absent: Mass, Rebound, Rigid, Tenderness - Extremities Exam Extremities exam: Positive for: pedal edema (on L ) Additional comments: R BKA dressing in place- clean and dry L necrotic middle finger - Neurological Exam Neurological exam: Alert, CN II-XII Intact, Oriented x3 - Psychiatric Exam Psychiatric exam: Normal Affect, Normal Mood - Skin Skin Exam: Dry, Warm Results - Vital Signs Recent Vital Signs: Last Vital Signs Temp 98.7 F 12/14/17 06:00 Pulse 69 12/14/17 06:00 Resp 19 12/14/17 03:08 BP 127/50 L 12/14/17 06:00 Pulse Ox 97 12/13/17 21:03 - Labs Result Diagrams: 12/14/17 09:00 12/14/17 09:00 Labs: Laboratory Results - last 24 hr 12/13/17 12/13/17 12/13/17 15:48 15:55 16:00 WBC 8.0 D RBC 2.79 L Hgb 8.8 L Hct 26.3 L MCV 94.3 MCH 31.5 MCHC 33.5 RDW 21.6 H Plt Count 306 Gran % 79.5 H Lymph % (Auto) 9.8 L [place] % (Auto) 9.5 H Eos % (Auto) 0.9 L Baso % (Auto) 0.3 Gran # 6.35 Lymph # (Auto) 0.8 L [place] # (Auto) 0.8 H Eos # (Auto) 0.1 Baso # (Auto) 0.02 PT INR APTT pO2 152 H VBG pH 7.43 VBG pCO2 47.0 VBG HCO3 31.2 H VBG Total CO2 32.6 H VBG O2 Sat (Calc) 99.0 H VBG Base Excess 5.8 H VBG Potassium 5.7 H Sodium 136.0 Chloride 105.0 Glucose 39 L* D Lactate 1.0 FiO2 21.0 Potassium Carbon Dioxide Anion Gap BUN Creatinine Est GFR ( Amer) Est GFR (Non-Af Amer) POC Glucose (mg/dL) 149 H Random Glucose Calcium Phosphorus Magnesium Total Bilirubin AST ALT Alkaline Phosphatase Troponin I NT-Pro-B Natriuret Pep Total Protein Albumin Globulin Albumin/Globulin Ratio Venous Blood Potassium 5.7 H 12/13/17 12/13/17 12/13/17 17:49 17:49 21:51 WBC RBC Hgb Hct MCV MCH MCHC RDW Plt Count Gran % Lymph % (Auto) [place] % (Auto) Eos % (Auto) Baso % (Auto) Gran # Lymph # (Auto) [place] # (Auto) Eos # (Auto) Baso # (Auto) PT 21.4 H INR 1.85 APTT 37.2 H pO2 VBG pH VBG pCO2 VBG HCO3 VBG Total CO2 VBG O2 Sat (Calc) VBG Base Excess VBG Potassium Sodium 139 Chloride 99 Glucose Lactate FiO2 Potassium 4.5 Carbon Dioxide 29 Anion Gap 16 BUN 60 H Creatinine 6.0 H Est GFR ( Amer) 12 Est GFR (Non-Af Amer) 10 POC Glucose (mg/dL) 93 Random Glucose 117 H Calcium 8.5 Phosphorus Magnesium 2.1 Total Bilirubin 0.9 AST 71 H ALT 31 Alkaline Phosphatase 70 Troponin I 0.14 H* D NT-Pro-B Natriuret Pep 79245 H Total Protein 6.9 Albumin 2.7 L Globulin 4.2 Albumin/Globulin Ratio 0.6 L Venous Blood Potassium 12/13/17 12/14/17 12/14/17 22:17 07:32 09:00 WBC RBC Hgb Hct MCV MCH MCHC RDW Plt Count Gran % Lymph % (Auto) [place] % (Auto) Eos % (Auto) Baso % (Auto) Gran # Lymph # (Auto) [place] # (Auto) Eos # (Auto) Baso # (Auto) PT INR APTT pO2 VBG pH VBG pCO2 VBG HCO3 VBG Total CO2 VBG O2 Sat (Calc) VBG Base Excess VBG Potassium Sodium Chloride Glucose Lactate FiO2 Potassium Carbon Dioxide Anion Gap BUN Creatinine Est GFR ( Amer) Est GFR (Non-Af Amer) POC Glucose (mg/dL) 104 171 H Random Glucose Calcium Phosphorus Magnesium Total Bilirubin AST ALT Alkaline Phosphatase Troponin I 0.26 H* D NT-Pro-B Natriuret Pep Total Protein Albumin Globulin Albumin/Globulin Ratio Venous Blood Potassium 12/14/17 09:00 WBC RBC Hgb Hct MCV MCH MCHC RDW Plt Count Gran % Lymph % (Auto) [place] % (Auto) Eos % (Auto) Baso % (Auto) Gran # Lymph # (Auto) [place] # (Auto) Eos # (Auto) Baso # (Auto) PT INR APTT pO2 VBG pH VBG pCO2 VBG HCO3 VBG Total CO2 VBG O2 Sat (Calc) VBG Base Excess VBG Potassium Sodium 134 Chloride 97 L Glucose Lactate FiO2 Potassium 5.3 H Carbon Dioxide 25 Anion Gap 18 BUN 65 H Creatinine 6.5 H Est GFR ( Amer) 11 Est GFR (Non-Af Amer) 9 POC Glucose (mg/dL) Random Glucose 196 H Calcium 8.6 Phosphorus 7.5 H Magnesium 2.1 Total Bilirubin 1.0 AST 73 H ALT 32 Alkaline Phosphatase 56 Troponin I NT-Pro-B Natriuret Pep Total Protein 6.8 Albumin 2.7 L Globulin 4.1 Albumin/Globulin Ratio 0.7 L Venous Blood Potassium Assessment & Plan - Assessment and Plan (Free Text) Assessment: This is a 52yo male with past medical history of ESRD on HD, PAD, CAD, COPD, CHF, pacer placement who was admitted for 1. AMS- resolved - secondary to hypoglycemia 2. Hypoglycemia - secondary to poor PO intake w/ concurrent insulin use 3. L necrotic finger 4. ESRD on HD 5. CAD 6. CHF 7. COPD 8. PAD Plan: Labs and imaging reviewed. Continue HD as scheduled. Patient will have fistu logram by IR to evaluate if any necrosis is from malfunction of fistula. Echo ordered to rule out emboli. Cardiology recommendation appreciated. Patient will continue ASA, Lipitor, Lopressor, Fenofibrate, Renagel and Lyrica. ID is on consult and patient was started on Merrem. He is on pain control and liquid diet. Surgery is on consult for necrotic finger. Case seen, discussed and reviewed with Dr. Abbey Miranda PGY3 - Date & Time Date: 12/14/17 Time: 16:43 <Gallo Potter - Last Filed: 12/14/17 18:47> Results - Vital Signs Recent Vital Signs: Last Vital Signs Temp 98.4 F 12/14/17 18:18 Pulse 64 12/14/17 18:18 Resp 18 12/14/17 18:18 BP 93/34 L 12/14/17 18:18 Pulse Ox 97 12/13/17 21:03 - Labs Result Diagrams: 12/14/17 09:00 12/14/17 09:00 Labs: Laboratory Results - last 24 hr 12/13/17 12/13/17 12/13/17 17:49 21:51 22:17 WBC RBC Hgb Hct MCV MCH MCHC RDW Plt Count MPV Gran % Lymph % (Auto) [place] % (Auto) Eos % (Auto) Baso % (Auto) Gran # Lymph # (Auto) [place] # (Auto) Eos # (Auto) Baso # (Auto) Sodium Potassium Chloride Carbon Dioxide Anion Gap BUN Creatinine Est GFR ( Amer) Est GFR (Non-Af Amer) POC Glucose (mg/dL) 93 104 Random Glucose Calcium Phosphorus Magnesium Total Bilirubin AST ALT Alkaline Phosphatase Troponin I 0.14 H* D NT-Pro-B Natriuret Pep 75535 H Total Protein Albumin Globulin Albumin/Globulin Ratio 12/14/17 12/14/17 12/14/17 07:32 09:00 09:00 WBC 8.6 RBC 2.69 L Hgb 8.6 L Hct 26.0 L MCV 96.7 MCH 32.0 MCHC 33.1 RDW 18.7 H Plt Count 108 L MPV 11.8 H Gran % 89.9 H Lymph % (Auto) 9.3 L [place] % (Auto) 0.8 L Eos % (Auto) 0.0 L Baso % (Auto) 0.0 Gran # 7.76 H Lymph # (Auto) 0.8 L [place] # (Auto) 0.1 Eos # (Auto) 0.0 Baso # (Auto) 0.00 Sodium Potassium Chloride Carbon Dioxide Anion Gap BUN Creatinine Est GFR ( Amer) Est GFR (Non-Af Amer) POC Glucose (mg/dL) 171 H Random Glucose Calcium Phosphorus Magnesium Total Bilirubin AST ALT Alkaline Phosphatase Troponin I 0.26 H* D NT-Pro-B Natriuret Pep Total Protein Albumin Globulin Albumin/Globulin Ratio 12/14/17 12/14/17 09:00 11:20 WBC RBC Hgb Hct MCV MCH MCHC RDW Plt Count MPV Gran % Lymph % (Auto) [place] % (Auto) Eos % (Auto) Baso % (Auto) Gran # Lymph # (Auto) [place] # (Auto) Eos # (Auto) Baso # (Auto) Sodium 134 Potassium 5.3 H Chloride 97 L Carbon Dioxide 25 Anion Gap 18 BUN 65 H Creatinine 6.5 H Est GFR ( Amer) 11 Est GFR (Non-Af Amer) 9 POC Glucose (mg/dL) 246 H Random Glucose 196 H Calcium 8.6 Phosphorus 7.5 H Magnesium 2.1 Total Bilirubin 1.0 AST 73 H ALT 32 Alkaline Phosphatase 56 Troponin I NT-Pro-B Natriuret Pep Total Protein 6.8 Albumin 2.7 L Globulin 4.1 Albumin/Globulin Ratio 0.7 L Assessment & Plan - Assessment and Plan (Free Text) Plan: Pt seen and examined. I have reviewed the note of the medical lab scientist and agree with it. I have discussed the assessment and plan with the resident. I have reviewed the patient's labs and medications. He has an ulcer in the L 3rd finger. I am concerned that it is from PAD with possible steal syndrome. I spoke with Dr Alfredo Wynn and he did an angiogram on the pt. The pt may require a drill procedure. The AVF was placed by Dr Davis and I spoke to him regarding the angiogram results. He will look at the film in the am and let me know if that is a procedure that he thinks will benefit the pt. If he does than the pt will need to be transferred to [facility] for the procedure. The pt will get HD in the am. The pt signed out AMA from the hospital a few days ago. He went to see Dr Urrutia for the finger. I spoke to Dr Urrutia as well. I spoke to Dr Erickson regarding the pt to update him on my plan. The pt does have a mildly elevated trop. He was hypoglycemic because he did not eat yesterday.
--- NOTE | 2017-12-14 10:37 | CP.PCM.CON ---
History of Present Illness - History of Present Illness History of Present Illness: Awake,alert,no distress Reason for consultation: Cardiac evaluation of coronary artery disease, admitted for hypoglycemia and altered mental status, now elevated troponin Brief history of present illness: A 52 year old male who was brought to the ER due to severe hyploglycemia. IM glucagon was given due to poor access. Glucose stabilized in ER. Recently admitted at [facility] [place] for left middle finger ulcer but signed AMA before further work up was done. History of brittle insulin dependent diabetes mellitus,hypertension,hyperlipidemia,TIA, coronary artery disease, status post stents,permanent pacemaker for sick sinus syndrome, severe peripheral vascular disease requiring post big toe amputation, then right transmetatarsal amputation then eventually right below knee amputation,diabetic neuropathy,diabetic retinopathy, nephropathy,end stage renal disease on hemodialysis 3 x a week. COPD, history of pancreatits. Seen and examined by me and Dr. Erickson Review of Systems - Review of Systems All systems: reviewed and no additional remarkable complaints except Review of Systems: from HPI Past Patient History - Infectious Disease Hx of Infectious Diseases: None - Tetanus Immunizations Tetanus Immunization: Up to Date - Past Medical History & Family History Past Medical History?: Yes - Past Social History Smoking Status: Never Smoked - CARDIAC Hx Cardiac Disorders: Yes (mi) Hx Angina: No Hx Cardia Arrhythmia: Yes Hx Circulatory Problems: Yes Hx Congestive Heart Failure: Yes Hx Heart Murmur: Yes Hx Heart Transplant: Yes Hx Hypercholesterolemia: Yes Hx Hypertension: Yes Hx Internal Defibrillator: Yes Hx Pacemaker: Yes (medtronic) Hx Peripheral Edema: Yes Hx Peripheral Vascular Disease: Yes - PULMONARY Hx Respiratory Disorders: Yes Hx Asthma: Yes Hx Bronchitis: Yes Hx Chronic Obstructive Pulmonary Disease (COPD): Yes Hx Pneumonia: Yes Hx Respiratory Aspiration: No Hx Respiratory Tract Infection: Yes Hx Sleep Apnea: Yes Hx Tuberculosis: No - NEUROLOGICAL Hx Neurological Disorder: Yes HX Cerebrovascular Accident: Yes Hx Transient Ischemic Attacks (TIA): Yes - HEENT Hx HEENT Problems: Yes Hx Blind: No Hx Cataracts: Yes Hx Deafness: No Hx Difficulty Chewing: No - RENAL Hx Chronic Kidney Disease: Yes Hx Dialysis: Yes Hx Kidney Stones: Yes Hx Renal Failure: Yes - ENDOCRINE/METABOLIC Hx Endocrine Disorders: Yes Hx Adrenal Cancer: No Hx Diabetes Insipidus: Yes Hx Diabetes Mellitus Type 1: Yes Hx Hypothyroidism: Yes Hx Systemic Lupus Erythematosus: No - HEMATOLOGICAL/ONCOLOGICAL Hx AIDS: No Hx Anemia: Yes Hx Blood Transfusions: Yes Hx Blood Transfusion Reaction: No - INTEGUMENTARY Hx Dermatological Problems: No - MUSCULOSKELETAL/RHEUMATOLOGICAL Hx Musculoskeletal Disorders: Yes Hx Arthritis: Yes Hx Back Pain: Yes Hx Falls: Yes Hx Fractures: Yes Hx Gout: Yes Hx Unsteady Gait: Yes - GASTROINTESTINAL Hx Gastrointestinal Disorders: Yes Hx Colostomy: No Hx Liver Failure: Yes Hx Pancreatitis: Yes - GENITOURINARY/GYNECOLOGICAL Hx Genitourinary Disorders: Yes Hx Hematuria: Yes - PSYCHIATRIC Hx Psychophysiologic Disorder: Yes Hx Anxiety: Yes - SURGICAL HISTORY Hx Surgeries: Yes Hx Amputation: Yes Hx Cardiac Catheterization: Yes Hx Cholecystectomy: Yes Hx Coronary Stent: Yes Hx Musculoskeletal Surgery: Yes - ANESTHESIA Hx Anesthesia: Yes Hx Anesthesia Reactions: No Hx Malignant Hyperthermia: No Meds Allergies/Adverse Reactions: Allergies Allergy/AdvReac Type Severity Reaction Status Date / Time insulin aspart [From Novolog] Allergy Intermediate RASH Verified 12/13/17 15:49 moxifloxacin Allergy Intermediate RASH Verified 12/13/17 15:49 Penicillins Allergy Intermediate RASH Verified 12/13/17 15:49 insulin regular Allergy ITCHING Verified 12/13/17 15:49 [From Novolin R Regular U-100 Insuln] - Medications Medications: Current Medications Acetaminophen (Tylenol 325mg Tab) 650 mg PO Q4 PRN PRN Reason: Pain, Mild (1-3) Last Admin: 12/14/17 08:30 Dose: 650 mg Aspirin (Ecotrin) 81 mg PO DAILY [facility] Atorvastatin Calcium (Lipitor) 40 mg PO HS [facility] Last Admin: 12/13/17 23:08 Dose: 40 mg Atorvastatin Calcium (Lipitor) 40 mg PO [facility] Dextrose/Sodium Chloride (Dextrose 5%/0.9% Ns 1000 Ml) 1,000 mls @ 50 mls/hr IV .Q20H [facility] Last Admin: 12/13/17 23:34 Dose: Not Given Insulin Human Regular (Humulin R Med) 0 units SC [facility]; Protocol Last Admin: 12/14/17 08:22 Dose: Not Given Metoprolol Tartrate (Lopressor) 25 mg PO BID [facility] Last Admin: 12/13/17 23:09 Dose: 25 mg Montelukast Sodium (Singulair) 10 mg PO [facility] Last Admin: 12/13/17 23:08 Dose: 10 mg Fenofibrate [ Triglide] 160 Mg ( Home Med) 160 mg PO DAILY [facility] Oxycodone/Acetaminophen (Percocet 5/325 Mg Tab) 1 tab PO Q6 PRN PRN Reason: Pain, moderate (4-7) Stop: 12/17/17 00:01 Last Admin: 12/14/17 05:05 Dose: 1 tab Pregabalin (Lyrica) 50 mg PO HS [facility] Sevelamer HCl (Renagel) 1,600 mg PO WM [facility] Last Admin: 12/14/17 08:22 Dose: 1,600 mg Physical Exam - Constitutional Appears: No Acute Distress - Eye Exam Eye Exam: Normal appearance - ENT Exam ENT Exam: Mucous Membranes Moist - Respiratory Exam Respiratory Exam: Decreased Breath Sounds, NORMAL BREATHING PATTERN - Cardiovascular Exam Cardiovascular Exam: +S1, +S2 Additional comments: PPM - GI/Abdominal Exam GI & Abdominal Exam: Normal Bowel Sounds, Soft - Exam Additional comments: ESRD hemodialysis 3x a week - Extremities Exam Additional comments: right below knee amputation, stump with dressing Left AV shunt/positive bruit Left middle finger ulcer/necrosis hand edema - Neurological Exam Neurological exam: Alert, Oriented x3 - Psychiatric Exam Psychiatric exam: Anxious - Skin Skin Exam: Dry, Warm Results - Vital Signs Recent Vital Signs: Last Vital Signs Temp 98.7 F 12/14/17 06:00 Pulse 69 12/14/17 06:00 Resp 19 12/14/17 03:08 BP 127/50 L 12/14/17 06:00 Pulse Ox 97 12/13/17 21:03 - Labs Result Diagrams: 12/14/17 09:00 12/14/17 09:00 Labs: Laboratory Results - last 24 hr 12/13/17 12/13/17 12/13/17 15:48 15:55 16:00 WBC 8.0 D RBC 2.79 L Hgb 8.8 L Hct 26.3 L MCV 94.3 MCH 31.5 MCHC 33.5 RDW 21.6 H Plt Count 306 Gran % 79.5 H Lymph % (Auto) 9.8 L [place] % (Auto) 9.5 H Eos % (Auto) 0.9 L Baso % (Auto) 0.3 Gran # 6.35 Lymph # (Auto) 0.8 L [place] # (Auto) 0.8 H Eos # (Auto) 0.1 Baso # (Auto) 0.02 PT INR APTT pO2 152 H VBG pH 7.43 VBG pCO2 47.0 VBG HCO3 31.2 H VBG Total CO2 32.6 H VBG O2 Sat (Calc) 99.0 H VBG Base Excess 5.8 H VBG Potassium 5.7 H Sodium 136.0 Chloride 105.0 Glucose 39 L* D Lactate 1.0 FiO2 21.0 Potassium Carbon Dioxide Anion Gap BUN Creatinine Est GFR ( Amer) Est GFR (Non-Af Amer) POC Glucose (mg/dL) 149 H Random Glucose Calcium Phosphorus Magnesium Total Bilirubin AST ALT Alkaline Phosphatase Troponin I NT-Pro-B Natriuret Pep Total Protein Albumin Globulin Albumin/Globulin Ratio Venous Blood Potassium 5.7 H 12/13/17 12/13/17 12/13/17 17:49 17:49 21:51 WBC RBC Hgb Hct MCV MCH MCHC RDW Plt Count Gran % Lymph % (Auto) [place] % (Auto) Eos % (Auto) Baso % (Auto) Gran # Lymph # (Auto) [place] # (Auto) Eos # (Auto) Baso # (Auto) PT 21.4 H INR 1.85 APTT 37.2 H pO2 VBG pH VBG pCO2 VBG HCO3 VBG Total CO2 VBG O2 Sat (Calc) VBG Base Excess VBG Potassium Sodium 139 Chloride 99 Glucose Lactate FiO2 Potassium 4.5 Carbon Dioxide 29 Anion Gap 16 BUN 60 H Creatinine 6.0 H Est GFR ( Amer) 12 Est GFR (Non-Af Amer) 10 POC Glucose (mg/dL) 93 Random Glucose 117 H Calcium 8.5 Phosphorus Magnesium 2.1 Total Bilirubin 0.9 AST 71 H ALT 31 Alkaline Phosphatase 70 Troponin I 0.14 H* D NT-Pro-B Natriuret Pep 20774 H Total Protein 6.9 Albumin 2.7 L Globulin 4.2 Albumin/Globulin Ratio 0.6 L Venous Blood Potassium 12/13/17 12/14/17 12/14/17 22:17 07:32 09:00 WBC RBC Hgb Hct MCV MCH MCHC RDW Plt Count Gran % Lymph % (Auto) [place] % (Auto) Eos % (Auto) Baso % (Auto) Gran # Lymph # (Auto) [place] # (Auto) Eos # (Auto) Baso # (Auto) PT INR APTT pO2 VBG pH VBG pCO2 VBG HCO3 VBG Total CO2 VBG O2 Sat (Calc) VBG Base Excess VBG Potassium Sodium Chloride Glucose Lactate FiO2 Potassium Carbon Dioxide Anion Gap BUN Creatinine Est GFR ( Amer) Est GFR (Non-Af Amer) POC Glucose (mg/dL) 104 171 H Random Glucose Calcium Phosphorus Magnesium Total Bilirubin AST ALT Alkaline Phosphatase Troponin I 0.26 H* D NT-Pro-B Natriuret Pep Total Protein Albumin Globulin Albumin/Globulin Ratio Venous Blood Potassium 12/14/17 09:00 WBC RBC Hgb Hct MCV MCH MCHC RDW Plt Count Gran % Lymph % (Auto) [place] % (Auto) Eos % (Auto) Baso % (Auto) Gran # Lymph # (Auto) [place] # (Auto) Eos # (Auto) Baso # (Auto) PT INR APTT pO2 VBG pH VBG pCO2 VBG HCO3 VBG Total CO2 VBG O2 Sat (Calc) VBG Base Excess VBG Potassium Sodium 134 Chloride 97 L Glucose Lactate FiO2 Potassium 5.3 H Carbon Dioxide 25 Anion Gap 18 BUN 65 H Creatinine 6.5 H Est GFR ( Amer) 11 Est GFR (Non-Af Amer) 9 POC Glucose (mg/dL) Random Glucose 196 H Calcium 8.6 Phosphorus 7.5 H Magnesium 2.1 Total Bilirubin 1.0 AST 73 H ALT 32 Alkaline Phosphatase 56 Troponin I NT-Pro-B Natriuret Pep Total Protein 6.8 Albumin 2.7 L Globulin 4.1 Albumin/Globulin Ratio 0.7 L Venous Blood Potassium Assessment & Plan - Assessment and Plan (Free Text) Assessment: A 52 year old male who was brought to the ER due to severe hyploglycemia. IM glucagon was given due to poor access. Glucose stabilized in ER. Recently admitted at [facility] [place] for left middle finger ulcer but signed AMA before further work up was done. History of brittle insulin dependent diabetes mellitus ,hypertension,hyperlipidemia, TIA, coronary artery disease, status post 2 drug eluding stents of LAD 05/2017,permanent pacemaker for sick sinus syndrome (06/2017),severe peripheral vascular disease requiring post big toe amputation, then right transmetatarsal amputation then eventually right below knee amputation,diabetic neuropathy,diabetic retinopathy, nephropathy,end stage renal disease on hemodialysis 3 x a week. COPD, history of pancreatits. history of fall with subdural hematoma. Resistant to Plavix. Work up for left middle finger ulcer in progress for possible surgery.Consider scheduling surgery after hemodialysis. Elevated troponin today 0.26. Review of previous cardiac work up: 10/20/17- Recent echo- LVEF 55%, moderate to severe aortic regurgitation,Mild MR,Severe TR, RVSP 98 mmHg No vegetation, no endocarditis. This Echo was repeated/done due to Fungicemia (blood culture) ruling out endocarditis. Compared to previous study dated 09/2017 and 05/2017, no significant changes in structure except severe aortic valve regurgitation. 05/2017-PTCA with YORDY of LAD,(2 stents) resistant to Plavix- placed on Brilinta and ASA 06/27/2017- Dual chamber PPM for sick sinus syndrome (Medtronic) MRI compatible Plan: Elevated troponin today Denies any chest pain right now Denies shortness of breath Stable Heart rate and blood pressure 12 lead EKG, serial troponin Glucose stable Work up for possible surgery of left middle finger in progress Continue current medications Continue current treatment Will follow up Further recommendations during hospital course Plan and treatment discussed with Dr. Erickson Thank you Dr. Potter for the opportunity of taking care of Mr. Jason Miramontes - Date & Time Date: 12/14/17 Time: 07:00
[2017-12-14 10:39] LABS: GRAN # 7.76 (1.4-6.5); GRAN % 89.9 % (50.0-68.0); HEMOGLOBIN 8.6 g/dL (14.0-18.0); LYMPH # 0.8 (1.2-3.4); LYMPH % 9.3 % (22.0-35.0); MEAN CELL VOLUME 96.7 fl (80.0-105.0); MEAN CORPUSCULAR HGB CONC 33.1 g/dl (31.0-37.0); MEAN PLATELET VOLUME 11.8 fl (7.0-11.0); MONO # 0.1 (0.1-0.6); MONO % 0.8 % (1.0-6.0); RBC 2.69 10^6/uL (3.5-6.1); RED CELL DISTRIBUTION WIDTH 18.7 % (11.5-14.5); WHITE BLOOD COUNT 8.6 10^3/ul (4.5-11.0)
[2017-12-14] MEDS: FENOFIBRATE 160 MG PO SCH (11:34)
[2017-12-14] MEDS ORDERED: Vancomycin 1gm in NS 250ml 1 GM/250 ML BAG IVPB STA (13:40)
--- NOTE | 2017-12-14 13:56 | RAD ---
PROCEDURE: Left Hand Radiographs. HISTORY: r/o osteo COMPARISON: None. FINDINGS: BONES: No acute fracture or destructive bony lesion identified. No overt periosteal reaction or cortical erosion to suggest definite osteomyelitis. JOINTS: No fracture or subluxation appreciable. SOFT TISSUES: Extensive vascular calcifications are identified throughout the hand, primarily at the volar distribution and diffuse soft tissue edema is seen throughout the left hand though some sparing of the small digit is questioned. No emphysematous soft tissue change are appreciated or prominent retained radiodense foreign body. These findings appear to extend into the wrist soft tissues as well. OTHER FINDINGS: None. IMPRESSION: No definitive osteomyelitis pattern identified throughout the left hand. Diffuse hand edema is appreciate extending to the wrist as well as vascular calcifications with edema sparing the small digit soft tissues somewhat.
--- NOTE | 2017-12-14 14:35 | RAD ---
Date of service: 12/14/2017 HISTORY: r/o infiltration COMPARISON: Portable chest 11/25/2017. FINDINGS: LUNGS: Right-sided permanent cardiac pacemaker reiterated. Left basilar airspace disease is questioned. None is identified at the right. PLEURA: Mild left pleural effusion is evident. None is seen the right. No pneumothorax bilaterally. CARDIOVASCULAR: Cardiomegaly appears stable. Borderline pulmonary vascular congestion. OSSEOUS STRUCTURES: No significant abnormalities. VISUALIZED UPPER ABDOMEN: Normal. OTHER FINDINGS: None. IMPRESSION: Borderline pulmonary vascular congestion with stable cardiomegaly evident. Mild left pleural effusion and underlying atelectasis or infiltrate is not excluded the left base.
--- NOTE | 2017-12-14 15:08 | CARD ---
APPROVED REPORT Date of service: 12/14/2017 EKG Measurement Heart [id number] <Conclusion> Electronic ventricular pacemaker: 100% Karen Sharma
[2017-12-14] MEDS ORDERED: Iodixanol 320 mg/ml 150 ml Bottle IV ONE (15:52)
[2017-12-14] MEDS ORDERED: Lidocaine PF 2% (5 ml) Inj (For Cardiac Arrhy) ONE (15:52)
[2017-12-14] MEDS ORDERED: Iodixanol 320 MG/ML 200 ML BOTTLE IV ONE (15:53)
[2017-12-14] MEDS ORDERED: Nitroglycerin 50mg in D5W 50 MG/250 ML BOTTLE IV ONE (15:53)
[2017-12-14] MEDS ORDERED: Midazolam 2 MG/2 ML VIAL ONE (16:29)
--- NOTE | 2017-12-14 18:14 | VASCULAR ---
PROCEDURE: Arch arteriogram Selective left upper extremity DSA arteriogram HISTORY: End-stage renal disease. Diabetes. Dry gangrene left 3rd finger PHYSICIAN(S): Alfredo Wynn MD. TECHNIQUE: The relative risks and indications of the procedure were explained to the patient and consent obtained. The patient was placed supine on the arteriogram table in the right groin prepped and draped usual sterile fashion. Conscious sedation monitoring were provided throughout the procedure by a nurse The right common femoral artery was punctured and a 5 Cypriot sheath placed. A 5 Cypriot flush catheter was placed in the aortic arch in an SEEMA DSA arch arteriogram performed. A 5 Cypriot day this catheter was placed selectively in the proximal left subclavian artery. An overlapping DSA left subclavian arteriogram was performed. A 5 Cypriot vertebral catheter was advanced sub selectively into the left axillary and brachial arteries. Overlapping left upper extremity DSA arteriogram was performed. The catheter was advanced beyond the anastomosis and into the terminal left brachial artery and selectively in the left radial, interosseous, and ulnar arteries. Distal imaging was obtained. Vasa dilators were given. The sheath was removed hemostasis obtained with a Perclose device. The patient tolerated the procedure well P FINDINGS: The arch injection reveals the 3 great vessels to be widely patent. The left subclavian artery is widely patent on two views. Left axillary and brachial arteries are patent. There is a well developed and patent anastomosis of a left brachial-cephalic fistula. There appears to be retrograde flow in the left brachial artery distal to the fistula. The left cephalic vein is widely patent and well developed. There are 2 pseudoaneurysms in the proximal fistula. The left cephalic vein and central veins are widely patent. The left ulnar artery is atretic and severely disease. It does not have significant supply to the palm are arch. The left interosseous artery is patent with collaterals. The left radial artery is continuous and calcified. It is the predominant supply to the superficial palmar arch. There is significant left palm are and proximal digital disease present, consistent with the patient's history for diabetes and dialysis IMPRESSION: 1. No proximal occlusive disease. 2. Significant retrograde flow in the left brachial artery distal to the AV fistula anastomosis. Given the well-developed fistula, this likely represents a steal syndrome. 3. Calcified but patent left radial and interosseous arteries. The left ulnar artery is diffusely diseased. 4. Significant left metacarpal and digital small vessel disease. 5. The patient may benefit from a DRIL procedure. A duplex scan of the distal left brachial artery will be ordered
[2017-12-14] MEDS: Dextrose 5%/0.9% NS 1,000 ML IV SCH (19:09)
[2017-12-14 21:28] LABS: TROPONIN I 0.21 ng/mL
--- NOTE | 2017-12-15 00:34 | CON ---
DATE: 12/14/2017 LOCATION: The patient was seen earlier today in room 270, bed 1. CHIEF COMPLAINT: Weakness and the patient had episode of hypoglycemia x1 day duration. HISTORY OF PRESENT ILLNESS: This is a 52-year-old male known to me from multiple admissions, end-stage renal disease, on hemodialysis, hypertension, severe peripheral vascular disease, coronary artery disease, obstructive sleep apnea, diabetic, diabetic neuropathy, had Guerline glabrata fungemia with a LASHAWN, which was negative at that time. The patient has a pacemaker, had a right knee below-knee amputation and cardiac stent placement, MULTIPLE ALLERGIES, now presented with hypoglycemia, hypothermia, and tachycardia. There are no fevers, no chills. REVIEW OF SYSTEMS: A 12-point review of systems was performed. PAST MEDICAL HISTORY: Significant for end-stage renal disease, on hemodialysis, hypertension, severe peripheral vascular disease, coronary artery disease, obstructive sleep apnea, and diabetic neuropathy, Guerline glabrata fungemia with a negative LASHAWN. PAST SURGICAL HISTORY: Significant for pacemaker, right below-knee amputation, cardiac stent placement and cardiac catheterization. ALLERGIES: THE PATIENT IS ALLERGIC TO INSULIN, MOXIFLOXACIN, PENICILLIN. PHYSICAL EXAMINATION VITAL SIGNS: The patient is in bed with a temperature of 98, initially with 94 to 95 with a blood pressure of 120/70, respiratory rate of 18, and heart rate was up to 93. HEENT: Examination of HEENT is unremarkable. NECK: Supple. LUNGS: Have decreased breath sounds. HEART: Normal S1, S2. ABDOMEN: Soft, nontender. LABORATORY DATA: Laboratory examination reveals the patient's white count is 8.6, hemoglobin of 8, platelets of 108. Chemistries are noted. BUN of 65, creatinine of 6.5, troponin is 0.26. ASSESSMENT AND PLAN: This is a 52-year-old with systemic inflammatory response syndrome and left dry finger gangrene and we will treat the patient with vancomycin and meropenem pending blood cultures, urine cultures, chest x-ray. The left third finger has dry gangrene, has foul odors. We will follow closely with you. Jaspreet Forbes MD
[2017-12-15] MEDS: Oxycodone/Acetaminophen 5/325 mg Tab PO PRN ×2 (04:48→14:09)
--- NOTE | 2017-12-15 06:57 | CP.PCM.PN ---
Subjective - Date & Time of Evaluation Date of Evaluation: 12/15/17 Time of Evaluation: 06:20 - Subjective Subjective: Easily awaken,alert,no distress Reason for consultation and follow up: Cardiac evaluation of coronary artery disease, admitted for hypoglycemia and altered mental status, now elevated troponin,History of brittle insulin dependent diabetes mellitus,hypertension,hyperlipidemia,TIA, coronary artery disease, status post stents,permanent pacemaker for sick sinus syndrome, Seen and examined by and Dr. Erickson Objective - Vital Signs/Intake and Output Vital Signs (last 24 hours): Temp Pulse Resp BP Pulse Ox 97.6 F 69 20 113/24 L 97 12/15/17 06:00 12/15/17 06:00 12/15/17 06:00 12/15/17 06:00 12/13/17 21:03 Intake and Output: 12/14/17 12/15/17 18:59 06:59 Intake Total 360 1560 Output Total 0 Balance 360 1560 - Medications Medications: Current Medications Acetaminophen (Tylenol 325mg Tab) 650 mg PO Q4 PRN PRN Reason: Pain, Mild (1-3) Last Admin: 12/14/17 08:30 Dose: 650 mg Aspirin (Ecotrin) 81 mg PO DAILY [facility] Last Admin: 12/14/17 11:30 Dose: 81 mg Atorvastatin Calcium (Lipitor) 40 mg PO HS [facility] Last Admin: 12/14/17 22:49 Dose: 40 mg Meropenem 250 mg/ Sodium (Chloride) 100 mls @ 100 mls/hr IVPB Q12H [facility]; Protocol Stop: 12/23/17 13:46 Last Admin: 12/15/17 01:50 Dose: 100 mls/hr Insulin Human Regular (Humulin R Med) 0 units SC ACHS [facility]; Protocol Last Admin: 12/14/17 22:49 Dose: 3 units Metoprolol Tartrate (Lopressor) 25 mg PO BID [facility] Last Admin: 12/14/17 19:00 Dose: 25 mg Montelukast Sodium (Singulair) 10 mg PO HS [facility] Last Admin: 12/14/17 22:49 Dose: 10 mg Fenofibrate [ Triglide] 160 Mg ( Home Med) 160 mg PO DAILY [facility] Last Admin: 12/14/17 11:34 Dose: Not Given Oxycodone/Acetaminophen (Percocet 5/325 Mg Tab) 1 tab PO Q6 PRN PRN Reason: Pain, moderate (4-7) Stop: 12/17/17 00:01 Last Admin: 12/15/17 04:48 Dose: 1 tab Pregabalin (Lyrica) 50 mg PO HS [facility] Last Admin: 12/14/17 22:49 Dose: 50 mg Sevelamer HCl (Renagel) 1,600 mg PO WM [facility] Last Admin: 12/14/17 19:02 Dose: 1,600 mg - Labs Labs: 12/14/17 09:00 12/14/17 09:00 PT 21.4 SECONDS (9.4-12.5) H 12/13/17 17:49 INR 1.85 12/13/17 17:49 APTT 37.2 Seconds (25.1-36.5) H 12/13/17 17:49 - Constitutional Appears: No Acute Distress - Head Exam Head Exam: NORMOCEPHALIC - ENT Exam ENT Exam: Mucous Membranes Moist - Respiratory Exam Respiratory Exam: Decreased Breath Sounds, Clear to Ausculation Bilateral, NORMAL BREATHING PATTERN - Cardiovascular Exam Cardiovascular Exam: +S1, +S2 Additional comments: PPM - Exam Additional comments: ESRD with hemodialysis 3x a week - Extremities Exam Additional comments: right below knee amputation ,stump with dressing intact left AV shunt positive bruit Left middle finger with dressing intact - Neurological Exam Neurological Exam: Alert, Awake, Oriented x3 - Psychiatric Exam Psychiatric exam: Normal Affect - Skin Skin Exam: Dry, Warm Assessment and Plan - Assessment and Plan (Free Text) Assessment: A 52 year old male who was brought to the ER due to severe hyploglycemia. IM gl ucagon was given due to poor access. Glucose stabilized in ER. Recently admitted at [facility] for left middle finger ulcer but signed AMA before further work up was done. History of brittle insulin dependent diabetes mellitus ,hypertension,hyperlipidemia, TIA, coronary artery disease, status post 2 drug eluding stents of LAD 05/2017,permanent pacemaker for sick sinus syndrome (06/2017),severe peripheral vascular disease requiring post big toe amputation, then right transmetatarsal amputation then eventually right below knee amputation,diabetic neuropathy,diabetic retinopathy, nephropathy,end stage renal disease on hemodialysis 3 x a week. COPD, history of pancreatits. history of fall with subdural hematoma. Resistant to Plavix. Work up for left middle finger ulcer in progress for possible surgery.Consider scheduling surgery after hemodialysis. Elevated troponin today 0.26. Repeat troponin 0.21. EKG 12 lead, Ventricular pacing. no evidence of ischemia.Repeat troponin trending down 0.21, probably secondary to renal insuffciency, will closely follow up. No invasive cardiac work up at this time.Will clear him for any surgery from cardiac standpoint. Moderate to high risk considering co-morbidities. Plan: Denies chest pain, denies shortness of breath Clinically,cardiac status stable Repeat troponin trending down 0.21, probably secondary to renal insuffciency, will closely follow up 12 lead EKG V-pacing no evidence of ischemia No invasive cardiac work up at this time Will clear him for any surgery from cardiac standpoint Moderate to high risk considering co-morbidities Stable Heart rate and blood pressure Glucose stable Work up for possible surgery of left middle finger in progress Continue current medications Continue current treatment Will follow up Further recommendations during hospital course Plan and treatment discussed with Dr. Erickson
--- NOTE | 2017-12-15 07:30 | CP.PCM.PN ---
Subjective - Date & Time of Evaluation Date of Evaluation: 12/15/17 Time of Evaluation: 06:50 - Subjective Subjective: General surgery progress note for Dr. Urrutia Patient seen and examined this AM. No adverse events overnight. Patient denies any pain, states that he still has sensation in the proximal finger, denies any fevers or chills. Objective - Vital Signs/Intake and Output Vital Signs (last 24 hours): Temp Pulse Resp BP Pulse Ox 97.6 F 69 20 113/24 L 97 12/15/17 06:00 12/15/17 06:00 12/15/17 06:00 12/15/17 06:00 12/13/17 21:03 Intake and Output: 12/15/17 12/15/17 06:59 18:59 Intake Total 1560 Balance 1560 - Medications Medications: Current Medications Acetaminophen (Tylenol 325mg Tab) 650 mg PO Q4 PRN PRN Reason: Pain, Mild (1-3) Last Admin: 12/14/17 08:30 Dose: 650 mg Aspirin (Ecotrin) 81 mg PO DAILY [facility] Last Admin: 12/14/17 11:30 Dose: 81 mg Atorvastatin Calcium (Lipitor) 40 mg PO HS [facility] Last Admin: 12/14/17 22:49 Dose: 40 mg Meropenem 250 mg/ Sodium (Chloride) 100 mls @ 100 mls/hr IVPB Q12H [facility]; Protocol Stop: 12/23/17 13:46 Last Admin: 12/15/17 01:50 Dose: 100 mls/hr Insulin Human Regular (Humulin R Med) 0 units SC ACHS [facility]; Protocol Last Admin: 12/14/17 22:49 Dose: 3 units Metoprolol Tartrate (Lopressor) 25 mg PO BID [facility] Last Admin: 12/14/17 19:00 Dose: 25 mg Montelukast Sodium (Singulair) 10 mg PO HS [facility] Last Admin: 12/14/17 22:49 Dose: 10 mg Fenofibrate [ Triglide] 160 Mg ( Home Med) 160 mg PO DAILY [facility] Last Admin: 12/14/17 11:34 Dose: Not Given Oxycodone/Acetaminophen (Percocet 5/325 Mg Tab) 1 tab PO Q6 PRN PRN Reason: Pain, moderate (4-7) Stop: 12/17/17 00:01 Last Admin: 12/15/17 04:48 Dose: 1 tab Pregabalin (Lyrica) 50 mg PO HS CARLOS Last Admin: 12/14/17 22:49 Dose: 50 mg Sevelamer HCl (Renagel) 1,600 mg PO WM CARLOS Last Admin: 12/14/17 19:02 Dose: 1,600 mg - Labs Labs: 12/14/17 09:00 12/14/17 09:00 PT 21.4 SECONDS (9.4-12.5) H 12/13/17 17:49 INR 1.85 12/13/17 17:49 APTT 37.2 Seconds (25.1-36.5) H 12/13/17 17:49 - Constitutional Appears: Well, Non-toxic, No Acute Distress - Head Exam Head Exam: ATRAUMATIC, NORMOCEPHALIC - Eye Exam Eye Exam: Normal appearance. absent: Conjunctival injection, Scleral icterus - ENT Exam ENT Exam: Mucous Membranes Moist, Normal Oropharynx - Respiratory Exam Respiratory Exam: NORMAL BREATHING PATTERN. absent: Accessory Muscle Use, Respiratory Distress - Cardiovascular Exam Cardiovascular Exam: RRR - GI/Abdominal Exam GI & Abdominal Exam: Soft. absent: Distended - Extremities Exam Additional comments: left third finger with dry necrosis of the tip and demarcated dark skin coloration approximately extending to the PIP joint. Gross sensation intact over the proximal pharynx. right lower extremity amputation site with skin intact, approximated with fitz still in place, middle of the incision the lower skin edge is dark, possibly necrotic - Neurological Exam Neurological Exam: Alert, Awake, Oriented x3 - Psychiatric Exam Psychiatric exam: Normal Affect, Normal Mood - Skin Skin Exam: Dry, Normal Color, Warm Assessment and Plan - Assessment and Plan (Free Text) Assessment: 52M with dry gangrene of the third finger of this left hand, possible steal syndrome from the AV fistula Plan: F/U cardiology recs F/U ID recs--IV antibiotics per their recs Will follow up duplex US of the upper extremity to evaluate blood flow further May consider vascular surgeon consult for AVF revision Surgical plan pending further tests Will discuss with Dr. Urrutia, further recommendations per him Jaja Mejía PGY2
[2017-12-15] MEDS: Insulin Lispro 1 UNITS/0.01 ML SC SCH ×2 (08:17→11:46)
--- NOTE | 2017-12-15 08:33 | CON ---
DATE: 12/14/2017 SERVICE: CARDIOLOGY DICTATING PHYSICIAN: Jarred Erickson MD REASON FOR CONSULTATION: Troponin positive, preop evaluation. This note is an addendum to initial progress note dictated by nurse practitioner, Karlie Moreau. I discussed with Dr. Laguna and I discussed with the patient. We will followup serial CPK. Patient is going for peripheral angiogram and so far no evidence of acute MA. Troponin most likely secondary to dialysis patient, but we will follow the serial CPK troponin trend. Depending upon the trend, we will clear the patient for surgery tomorrow. We will reassess. Further recommendation will be made upon the hospital course. We will also suggest to give packed unit of RBC during the dialysis. Patient is admitted with hypoglycemia and no complain of chest pain. They will put one unit of packed RBC during transfusion. We will get serial CPK including CPK and troponin tomorrow. Jarred Erickson MD
[2017-12-15] MEDS: FENOFIBRATE 160 MG PO SCH (09:18)
[2017-12-15] MEDS ORDERED: Omega-3-Acid Ethyl Esters 1 GM Cap PO SCH (10:00)
[2017-12-15] MEDS ORDERED: Multivitamin Therapeutic Tab PO SCH (10:00)
[2017-12-15 10:33] LABS: TROPONIN I 0.21 ng/mL
--- NOTE | 2017-12-15 10:47 | CP.PCM.DIS ---
<Lolis Rivas - Last Filed: 12/15/17 10:44> Provider - Provider Date of Admission: 12/14/17 10:25 Attending physician: Gallo Potter MD Consults: ID: Andrei IR: Kingsley Cardio: Dre Surgery: Urrutia Time Spent in preparation of Discharge (in minutes): 35 Hospital Course - Lab Results Lab Results: Micro Results 12/13/17 17:49 Blood-Venous Blood Culture - Preliminary NO GROWTH AFTER 24 HOURS 12/13/17 16:00 Blood-Venous Blood Culture - Preliminary NO GROWTH AFTER 24 HOURS Most Recent Lab Values WBC 8.6 10^3/ul (4.5-11.0) 12/14/17 09:00 RBC 2.69 10^6/uL (3.5-6.1) L 12/14/17 09:00 Hgb 8.6 g/dL (14.0-18.0) L 12/14/17 09:00 Hct 26.0 % (42.0-52.0) L 12/14/17 09:00 MCV 96.7 fl (80.0-105.0) 12/14/17 09:00 MCH 32.0 pg (25.0-35.0) 12/14/17 09:00 MCHC 33.1 g/dl (31.0-37.0) 12/14/17 09:00 RDW 18.7 % (11.5-14.5) H 12/14/17 09:00 Plt Count 108 10^3/uL (120.0-450.0) L 12/14/17 09:00 MPV 11.8 fl (7.0-11.0) H 12/14/17 09:00 Gran % 89.9 % (50.0-68.0) H 12/14/17 09:00 Lymph % (Auto) 9.3 % (22.0-35.0) L 12/14/17 09:00 Cla[place]orne % (Auto) 0.8 % (1.0-6.0) L 12/14/17 09:00 Eos % (Auto) 0.0 % (1.5-5.0) L 12/14/17 09:00 Baso % (Auto) 0.0 % (0.0-3.0) 12/14/17 09:00 Gran # 7.76 (1.4-6.5) H 12/14/17 09:00 Lymph # (Auto) 0.8 (1.2-3.4) L 12/14/17 09:00 Cla[place]orne # (Auto) 0.1 (0.1-0.6) 12/14/17 09:00 Eos # (Auto) 0.0 (0.0-0.7) 12/14/17 09:00 Baso # (Auto) 0.00 K/mm3 (0.0-2.0) 12/14/17 09:00 PT 21.4 SECONDS (9.4-12.5) H 12/13/17 17:49 INR 1.85 12/13/17 17:49 APTT 37.2 Seconds (25.1-36.5) H 12/13/17 17:49 pO2 152 mm/Hg (30-55) H 12/13/17 16:00 VBG pH 7.43 (7.32-7.43) 12/13/17 16:00 VBG pCO2 47.0 (40-60) 12/13/17 16:00 VBG HCO3 31.2 mmol/l (21-28) H 12/13/17 16:00 VBG Total CO2 32.6 mmol.L (22-28) H 12/13/17 16:00 VBG O2 Sat (Calc) 99.0 % (40-65) H 12/13/17 16:00 VBG Base Excess 5.8 mmol/L (0.0-2.0) H 12/13/17 16:00 VBG Potassium 5.7 mmol/L (3.6-5.2) H 12/13/17 16:00 Sodium 136.0 mmol/L (132-148) 12/13/17 16:00 Chloride 105.0 mmol/L (98-107) 12/13/17 16:00 Glucose 39 mg/dl (75-110) L* D 12/13/17 16:00 Lactate 1.0 mmol/L (0.7-2.1) 12/13/17 16:00 FiO2 21.0 % 12/13/17 16:00 Sodium 134 mmol/L (132-148) 12/14/17 09:00 Potassium 5.3 mmol/L (3.6-5.0) H 12/14/17 09:00 Chloride 97 mmol/L (98-107) L 12/14/17 09:00 Carbon Dioxide 25 mmol/L (21-33) 12/14/17 09:00 Anion Gap 18 (10-20) 12/14/17 09:00 BUN 65 mg/dL (7-21) H 12/14/17 09:00 Creatinine 6.5 mg/dl (0.8-1.5) H 12/14/17 09:00 Est GFR ( Amer) 11 12/14/17 09:00 Est GFR (Non-Af Amer) 9 12/14/17 09:00 POC Glucose (mg/dL) 342 mg/dL (65-110) H 12/15/17 09:22 Random Glucose 196 mg/dL (70-110) H 12/14/17 09:00 Calcium 8.6 mg/dL (8.4-10.5) 12/14/17 09:00 Phosphorus 7.5 mg/dL (2.5-4.5) H 12/14/17 09:00 Magnesium 2.1 mg/dL (1.7-2.2) 12/14/17 09:00 Total Bilirubin 1.0 mg/dL (0.2-1.3) 12/14/17 09:00 AST 73 U/L (17-59) H 12/14/17 09:00 ALT 32 U/L (7-56) 12/14/17 09:00 Alkaline Phosphatase 56 U/L (38-126) 12/14/17 09:00 Lactate Dehydrogenase 534 U/L (333-699) 12/15/17 09:30 Total Creatine Kinase 85 U/L (35-230) 12/15/17 09:30 Troponin I 0.21 ng/mL H* 12/15/17 09:30 NT-Pro-B Natriuret Pep 27834 pg/mL (0-450) H 12/13/17 17:49 Total Protein 6.8 g/dL (5.8-8.3) 12/14/17 09:00 Albumin 2.7 g/dL (3.0-4.8) L 12/14/17 09:00 Globulin 4.1 gm/dL 12/14/17 09:00 Albumin/Globulin Ratio 0.7 (1.1-1.8) L 12/14/17 09:00 Venous Blood Potassium 5.7 mmol/L (3.6-5.2) H 12/13/17 16:00 Blood Type B POSITIVE 12/14/17 20:00 Antibody Screen Negative 12/14/17 20:00 Crossmatch See Detail 12/14/17 20:00 BBK History Checked Patient has bt 12/14/17 20:00 - Hospital Course Hospital Course: This is a 52yo male with past medical history of ESRD on HD, PAD, CAD, COPD, CHF, pacer placement who was admitted for AMS secondary to hypoglycemia from poor PO intake. AMS resolved after hypoglycemia was treated. Patient was found to have L necrotic middle finger. He had a fistulogram done by IR. He was found to have steal syndrome which is causing ischemia. He will be transferred to [facility] to have a DRIL procedure by Dr. Davis. Patient will also need amputation of the L middle digit. He was evaluated by surgery. He was placed on Merrem as per ID. Pain is controlled. Home meds were continued. Patient will have HD before transfer. Discussed plan of care with patient and patient verbalized and agreed with plan. - Date & Time of H&P Date of H&P: 12/14/17 Time of H&P: 14:00 Discharge Exam - Head Exam Head Exam: NORMOCEPHALIC - Eye Exam Eye Exam: Normal appearance, PERRL Pupil Exam: NORMAL ACCOMODATION - ENT Exam ENT Exam: Mucous Membranes Moist - Respiratory Exam Respiratory Exam: Clear to PA & Lateral, NORMAL BREATHING PATTERN, UNREMARKABLE. absent: Rhonchi, Wheezes, Respiratory Distress - Cardiovascular Exam Cardiovascular Exam: REGULAR RHYTHM, +S1, +S2. absent: Gallop, Rubs, Systolic Murmur - GI/Abdominal Exam GI & Abdominal Exam: Normal Bowel Sounds, Unremarkable. absent: Rebound, Rigid, Soft, Tenderness - Extremities Exam Additional comments: R BKA L middle finger necrotic - Neurological Exam Neurological exam: Alert, CN II-XII Intact, Oriented x3 - Psychiatric Exam Psychiatric exam: Normal Affect, Normal Mood - Skin Skin Exam: Dry, Warm Discharge Plan - Follow Up Plan Condition: IMPROVED Disposition: Trans to Other Acute Care Hosp Instructions: Hypothermia, Peripheral Vascular (Arterial) Disease (DC), Low Blood Sugar, Adult (DC) Additional Instructions: Discharge instructions: patient transferred to [facility] today; 12/15/17. Scheduled/planned: DRIL Procedure at [facility]. Please call the staff at [facility] for assistance; to reduce the risk of falls and for assistance. Diet: Renal Dialysis Diet; Diabetic Exchange Menu Patient up to date with regards to the pneumococcal vaccines and flu vaccines. <Gallo Potter - Last Filed: 12/15/17 19:17> Provider - Provider Date of Admission: 12/14/17 10:25 Attending physician: Gallo Potter [facility] Course - Lab Results Lab Results: Micro Results 12/13/17 17:49 Blood-Venous Blood Culture - Preliminary NO GROWTH AFTER 48 HOURS 12/13/17 16:00 Blood-Venous Blood Culture - Preliminary NO GROWTH AFTER 48 HOURS Most Recent Lab Values WBC 8.6 10^3/ul (4.5-11.0) 12/14/17 09:00 RBC 2.69 10^6/uL (3.5-6.1) L 12/14/17 09:00 Hgb 8.6 g/dL (14.0-18.0) L 12/14/17 09:00 Hct 26.0 % (42.0-52.0) L 12/14/17 09:00 MCV 96.7 fl (80.0-105.0) 12/14/17 09:00 MCH 32.0 pg (25.0-35.0) 12/14/17 09:00 MCHC 33.1 g/dl (31.0-37.0) 12/14/17 09:00 RDW 18.7 % (11.5-14.5) H 12/14/17 09:00 Plt Count 108 10^3/uL (120.0-450.0) L 12/14/17 09:00 MPV 11.8 fl (7.0-11.0) H 12/14/17 09:00 Gran % 89.9 % (50.0-68.0) H 12/14/17 09:00 Lymph % (Auto) 9.3 % (22.0-35.0) L 12/14/17 09:00 Claiborne % (Auto) 0.8 % (1.0-6.0) L 12/14/17 09:00 Eos % (Auto) 0.0 % (1.5-5.0) L 12/14/17 09:00 Baso % (Auto) 0.0 % (0.0-3.0) 12/14/17 09:00 Gran # 7.76 (1.4-6.5) H 12/14/17 09:00 Lymph # (Auto) 0.8 (1.2-3.4) L 12/14/17 09:00 Cla[place]orne # (Auto) 0.1 (0.1-0.6) 12/14/17 09:00 Eos # (Auto) 0.0 (0.0-0.7) 12/14/17 09:00 Baso # (Auto) 0.00 K/mm3 (0.0-2.0) 12/14/17 09:00 PT 21.4 SECONDS (9.4-12.5) H 12/13/17 17:49 INR 1.85 12/13/17 17:49 APTT 37.2 Seconds (25.1-36.5) H 12/13/17 17:49 pO2 152 mm/Hg (30-55) H 12/13/17 16:00 VBG pH 7.43 (7.32-7.43) 12/13/17 16:00 VBG pCO2 47.0 (40-60) 12/13/17 16:00 VBG HCO3 31.2 mmol/l (21-28) H 12/13/17 16:00 VBG Total CO2 32.6 mmol.L (22-28) H 12/13/17 16:00 VBG O2 Sat (Calc) 99.0 % (40-65) H 12/13/17 16:00 VBG Base Excess 5.8 mmol/L (0.0-2.0) H 12/13/17 16:00 VBG Potassium 5.7 mmol/L (3.6-5.2) H 12/13/17 16:00 Sodium 136.0 mmol/L (132-148) 12/13/17 16:00 Chloride 105.0 mmol/L (98-107) 12/13/17 16:00 Glucose 39 mg/dl (75-110) L* D 12/13/17 16:00 Lactate 1.0 mmol/L (0.7-2.1) 12/13/17 16:00 FiO2 21.0 % 12/13/17 16:00 Sodium 134 mmol/L (132-148) 12/14/17 09:00 Potassium 5.3 mmol/L (3.6-5.0) H 12/14/17 09:00 Chloride 97 mmol/L (98-107) L 12/14/17 09:00 Carbon Dioxide 25 mmol/L (21-33) 12/14/17 09:00 Anion Gap 18 (10-20) 12/14/17 09:00 BUN 65 mg/dL (7-21) H 12/14/17 09:00 Creatinine 6.5 mg/dl (0.8-1.5) H 12/14/17 09:00 Est GFR ( Amer) 11 12/14/17 09:00 Est GFR (Non-Af Amer) 9 12/14/17 09:00 POC Glucose (mg/dL) 184 mg/dL (65-110) H 12/15/17 13:42 Random Glucose 196 mg/dL (70-110) H 12/14/17 09:00 Calcium 8.6 mg/dL (8.4-10.5) 12/14/17 09:00 Phosphorus 7.5 mg/dL (2.5-4.5) H 12/14/17 09:00 Magnesium 2.1 mg/dL (1.7-2.2) 12/14/17 09:00 Total Bilirubin 1.0 mg/dL (0.2-1.3) 12/14/17 09:00 AST 73 U/L (17-59) H 12/14/17 09:00 ALT 32 U/L (7-56) 12/14/17 09:00 Alkaline Phosphatase 56 U/L (38-126) 12/14/17 09:00 Lactate Dehydrogenase 534 U/L (333-699) 12/15/17 09:30 Total Creatine Kinase 85 U/L (35-230) 12/15/17 09:30 Troponin I 0.21 ng/mL H* 12/15/17 09:30 NT-Pro-B Natriuret Pep 81090 pg/mL (0-450) H 12/13/17 17:49 Total Protein 6.8 g/dL (5.8-8.3) 12/14/17 09:00 Albumin 2.7 g/dL (3.0-4.8) L 12/14/17 09:00 Globulin 4.1 gm/dL 12/14/17 09:00 Albumin/Globulin Ratio 0.7 (1.1-1.8) L 12/14/17 09:00 Venous Blood Potassium 5.7 mmol/L (3.6-5.2) H 12/13/17 16:00 Blood Type B POSITIVE 12/14/17 20:00 Antibody Screen Negative 12/14/17 20:00 Crossmatch See Detail 12/14/17 20:00 BBK History Checked Patient has bt 12/14/17 20:00 - Hospital Course Hospital Course: Pt seen and examined by me. I have reviewed the note by the biomedical scientist. The case was discusussed and reviewed with the resident. I reviewed the medications and labs. The pt with PAD and ulcer of his Left finger. He is going to be transferred to [facility] for DRIL procedure by Dr Davis. I spoke to Dr Davis this morning and the hospitalist that will be seeing the pt. His prognosis is guarded.
[2017-12-15] MEDS ORDERED: INSULIN REGULAR HUMAN SQ SCH ×2 (11:30)
[2017-12-15 11:49] VITALS: PULSE 83; RESP 18
[2017-12-15 14:15] VITALS: BP 108/33; TEMP 97.6; O2SAT 100
--- NOTE | 2017-12-15 16:01 | PN ---
DATE: 12/15/2017 TYPE OF DICTATION: Cardiac evaluation, preop evaluation for possible amputation. SUBJECTIVE: This note is an addendum to the initial progress note dictated by our nurse practitioner. Yesterday, the patient underwent peripheral angiogram for the left brachial artery. No proximal occlusive disease noted. Significant left metatarsal digital small vessel disease. It is mentioned by Interventional Radiologist, Dr. Wynn, the patient may get benefit from drill procedure. The patient on admission had some troponin positive in phase of renal insufficiency, significant unknown dose 0.2. In phase of dialysis, the patient with creatinine clearance 11 mL, probably is not significant. No evidence of ischemia. No evidence of chest pain. We will clear the patient to go for surgery because of low-risk procedure for amputation. Continue aspirin. Continue metoprolol. Suggested to give one unit of blood during the dialysis, keep hemoglobin around 10. Continue beta valerie. The patient again is cleared to go for surgery with moderate risk because of very low risk procedure. Asymptomatic. No evidence of arrhythmia. No evidence of chest pain. No evidence of angina or congestive heart failure. We will follow with you. Thank you, Dr. Potter for providing us the opportunity in taking care of the patient, Jason Berger. Jarred Erickson MD
[2017-12-15] MEDS ORDERED: Insulin Human NPH 1 UNITS/0.01 ML SC SCH (22:00)
[2017-12-16] MEDS ORDERED: Levothyroxine 25 MCG TAB PO SCH (06:00)
== END 2017-12-15 14:54 | disposition short-term general hospital (02) | DRG 638 ==
LOC: ED 15:17 → ERH 17:29 → 2RSO 22:00 → OBSVTOIN 12-14 10:25
PROVIDERS: ADMIT Internal Medicine Nephrology; ATTEND Internal Medicine Nephrology
PROC: B31JYZZ Fluoroscopy of Left Upper Extremity Arteries using Other Contrast (ICD-10-PCS; principal; 2017-12-14)
DX: E11.649 Type 2 diabetes mellitus with hypoglycemia without coma (principal); I13.2 Hypertensive heart and chronic kidney disease with heart failure and with stage 5 chronic kidney disease, or end stage renal disease; I69.351 Hemiplegia and hemiparesis following cerebral infarction affecting right dominant side; E11.52 Type 2 diabetes mellitus with diabetic peripheral angiopathy with gangrene; I96 Gangrene, not elsewhere classified; E11.22 Type 2 diabetes mellitus with diabetic chronic kidney disease; N18.6 End stage renal disease; Z99.2 Dependence on renal dialysis; T68.XXXA Hypothermia, initial encounter; J44.9 Chronic obstructive pulmonary disease, unspecified; I25.10 Atherosclerotic heart disease of native coronary artery without angina pectoris; E11.319 Type 2 diabetes mellitus with unspecified diabetic retinopathy without macular edema; E11.40 Type 2 diabetes mellitus with diabetic neuropathy, unspecified; E11.21 Type 2 diabetes mellitus with diabetic nephropathy; I50.9 Heart failure, unspecified; Z95.0 Presence of cardiac pacemaker; T82.898A Other specified complication of vascular prosthetic devices, implants and grafts, initial encounter; Y83.2 Surgical operation with anastomosis, bypass or graft as the cause of abnormal reaction of the patient, or of later complication, without mention of misadventure at the time of the procedure; Z89.511 Acquired absence of right leg below knee; Z95.5 Presence of coronary angioplasty implant and graft; Z79.4 Long term (current) use of insulin; Z94.7 Corneal transplant status

== ENCOUNTER 2018-01-06 12:26 | Observation (INO) | payer MEDICARE, OTHER ==
[2018-01-06] MEDS ORDERED: Dextrose 50% SYRINGE Inj (50 ml) IVP STA (12:43)
[2018-01-06 12:58] LABS: VENOUS BLOOD GAS BASE EXCESS 12.6 mmol/L (0.0-2.0); VENOUS BLOOD GAS PO2 55 mm/Hg (30-55); VENOUS BLOOD PH 7.39 (7.32-7.43)
[2018-01-06 13:00] LABS: BASO # 0.05 K/mm3 (0.0-2.0); BASO % 0.9 % (0.0-3.0); EOS # 0.1 (0.0-0.7); EOS % 1.1 % (1.5-5.0); GRAN # 3.63 (1.4-6.5); GRAN % 67.3 % (50.0-68.0); HEMOGLOBIN 9.3 g/dL (14.0-18.0); LYMPH # 0.9 (1.2-3.4); LYMPH % 16.3 % (22.0-35.0); MEAN CELL VOLUME 98.7 fl (80.0-105.0); MEAN CORPUSCULAR HEMOGLOBIN 31.2 pg (25.0-35.0); MEAN CORPUSCULAR HGB CONC 31.6 g/dl (31.0-37.0); MEAN PLATELET VOLUME 13.5 fl (7.0-11.0); MONO # 0.8 (0.1-0.6); MONO % 14.4 % (1.0-6.0); RBC 2.98 10^6/uL (3.5-6.1); RED CELL DISTRIBUTION WIDTH 17.6 % (11.5-14.5); WHITE BLOOD COUNT 5.4 10^3/ul (4.5-11.0)
[2018-01-06] MEDS ORDERED: Dextrose 5%/0.45% NS 1,000 ML IV SCH (13:00)
--- NOTE | 2018-01-06 13:06 | ED PDOC ---
Arrival/HPI - General Chief Complaint: Weakness/Neurological Deficit Time Seen by Provider: 01/06/18 12:27 Historian: Patient - History of Present Illness Narrative History of Present Illness (Text): 01/06/18 13:07 A 52 year old male, whose past medical history includes IDDM, ESRD(HD on //Mon) s/p R BKA, presents to the emergency department complaining of hypoglycemia. Patient reports this morning he had not taken his insulin. He had an appointment with his PMD this today, and while there he began experiencing dizziness, nausea, and resulted in vomiting as well. Patient's blood pressure was taken while in Dr. Escalera's office, which measured to be very low. Afterwards patient was directed to go to the emergency room for evaluation. Currently here in the emergency room patient has a blood sugar level of 46. Patient denies any abdominal pain, chest pain, shortness of breath, or any other complaints at this time. PMD: Dr. Escalera Past Medical History - Provider Review Nursing Documentation Reviewed: Yes - Past History Past History: No Previous - Infectious Disease Hx of Infectious Diseases: None - Tetanus Immunization Tetanus Immunization: Up to Date - Reproductive Currently Lactating: No - Cardiac Hx Cardiac Disorders: Yes (mi) Hx Congestive Heart Failure: Yes Hx Hypertension: Yes - Pulmonary Hx Chronic Obstructive Pulmonary Disease (COPD): Yes - Neurological HX Cerebrovascular Accident: Yes - HEENT Hx HEENT Disorder: Yes Hx Blind: No Hx Cataracts: Yes Hx Deafness: No Hx Difficulty Chewing: No - Renal Hx Renal Failure: Yes - Endocrine/Metabolic Hx Diabetes Mellitus Type 1: Yes Hx Hypothyroidism: Yes - Hematological/Oncological Hx AIDS: No Hx Anemia: Yes Hx Blood Transfusions: Yes Hx Blood Transfusion Reaction: No - Integumentary Hx Dermatological Disorder: No - Musculoskeletal/Rheumatological Hx Arthritis: Yes - Gastrointestinal Hx Gastrointestinal Disorders: Yes Hx Colostomy: No Hx Liver Failure: Yes Hx Pancreatitis: Yes - Genitourinary/Gynecological Hx Genitourinary Disorders: Yes Hx Hematuria: Yes - Psychiatric Hx Psychophysiologic Disorder: Yes Hx Anxiety: Yes Hx Substance Use: No - Surgical History Hx Amputation: Yes Hx Cardiac Catheterization: Yes Hx Cholecystectomy: Yes Hx Coronary Stent: Yes Hx Musculoskeletal Surgery: Yes - Anesthesia Hx Anesthesia: Yes Hx Anesthesia Reactions: No Hx Malignant Hyperthermia: No - Suicidal Assessment Feels Threatened In Home Enviroment: No Family/Social History - Physician Review Nursing Documentation Reviewed: Yes Family/Social History: No Known Family HX Smoking Status: Never Smoked Hx Alcohol Use: No Hx Substance Use: No Hx Substance Use Treatment: No Allergies/Home Meds Allergies/Adverse Reactions: Allergies insulin aspart [From Novolog] Allergy (Intermediate, Verified 01/06/18 12:38) RASH ANY INSULIN THAT STARTS WITH NOV- moxifloxacin Allergy (Intermediate, Verified 01/06/18 12:38) RASH Penicillins Allergy (Intermediate, Verified 01/06/18 12:38) RASH insulin regular [From Novolin R Regular U-100 Insuln] Allergy (Verified 01/06/18 12:38) ITCHING Home Medications: Home Meds Medication Instructions Recorded Confirmed RX: Diclofenac Sodium [Voltaren] 1 appl TOP DAILY 06/14/17 01/06/18 RX: Ergocalciferol (Vitamin D2) 50,000 unit PO WED 06/16/17 01/06/18 [Vitamin D2] RX: Bimatoprost [Lumigan] 1 drp OU HS 07/05/17 01/06/18 RX: Salmeterol Xinafoate/Fluticaso 1 puff IH BID 07/05/17 01/06/18 [Advair Hfa 230-21] RX: Fenofibrate [Triglide] 160 mg PO DAILY 10/16/17 01/06/18 RX: Fluticasone Nasal [Flonase] 2 spr NS DAILY 10/16/17 01/06/18 RX: Loratadine [Claritin] 10 mg PO HS 11/02/17 01/06/18 RX: Sodium Chloride Nasal [place] 1 ml NS Q2 PRN 11/02/17 01/06/18 [[place] Nasal [place]] Review of Systems - Physician Review All systems were reviewed & negative as marked: Yes - Review of Systems Constitutional: absent: Fevers, Night Sweats Respiratory: absent: SOB Cardiovascular: absent: Chest Pain Gastrointestinal: Nausea, Vomiting. absent: Abdominal Pain Physical Exam Vital Signs Reviewed: Yes Temperature: Afebrile Blood Pressure: Normal Pulse: Regular Respiratory Rate: Normal Appearance: Positive for: Well-Appearing, Non-Toxic, Comfortable Pain Distress: None Mental Status: Positive for: Alert and Oriented X 3 - Systems Exam Head: Present: Atraumatic, Normocephalic Pupils: Present: PERRL Extroacular Muscles: Present: EOMI Conjunctiva: Present: Normal Mouth: Present: Moist Mucous Membranes Neck: Present: Normal Range of Motion Respiratory/Chest: Present: Clear to Auscultation, Good Air Exchange. No: Respiratory Distress, Accessory Muscle Use Cardiovascular: Present: Regular Rate and Rhythm, Normal S1, S2. No: Murmurs Abdomen: Present: Distention. No: Tenderness Upper Extremity: Present: Normal Inspection, NORMAL PULSES, Other (left upper extremity 3rd digit amputation). No: Cyanosis, Edema Lower Extremity: Present: Normal Inspection, NORMAL PULSES, Other (right lower extremity BKA). No: Edema, Erythema Neurological: Present: GCS=15, CN II-XII Intact, Speech Normal Skin: Present: Warm, Dry, Normal Color. No: Rashes Psychiatric: Present: Alert, Oriented x 3, Normal Insight, Normal Concentration Medical Decision Making ED Course and Treatment: 01/06/18 13:12 Impression: 52 year old male with hypoglycemia. Physical exam shows heart and lung exam is normal, however patient's abdomen appears distended but non-tender; and 3rd digit right upper extremity amputation; chronic venostasis to extremities. Plan: -- Chest X-Ray -- Labs -- Urinalysis -- Blood Culture -- Dextrose amp --D51/2NS infusion -- Reassess and disposition Prior Visits: Notes and results from previous visits were reviewed. Patient was last seen here in the emergency department on 12/13/2017 for hypoglycemia. Patient was admitted. Upon view of recent documentation, patient was discharged recently after amputating the 3rd digit of the left hand Progress Notes: 01/06/18 13:34 Chemistries reveiwed w/glucose at 51. Repeat FSG 146. CXR shows no focal infiltrates and cardiomegaly. Will contact Dr. Villar(covering for Dr. Escalera). 01/06/18 13:[address] Morris(covering for Dr. Villar) who accepts patient onto her service. Requests for patient to be kept on D51/2 drip in the meantime and to hold insulin. - Lab Interpretations Lab Results: 01/06/18 12:44 Lab Results 01/06/18 12:44: pO2 55, VBG pH 7.39, VBG pCO2 67.0 H*, VBG HCO3 40.6 H, VBG Total CO2 42.7 H, VBG O2 Sat (Calc) 86.7 H, VBG Base Excess 12.6 H, VBG Potassium 3.7, Sodium 140.0, Chloride 101.0, Glucose 52 L, Lactate 1.0, FiO2 21.0, Venous Blood Potassium 3.7 01/06/18 12:44: WBC 5.4 D, RBC 2.98 L, Hgb 9.3 L, Hct 29.4 L, MCV 98.7, MCH 31.2, MCHC 31.6, RDW 17.6 H, Plt Count 99 L, MPV 13.5 H, Gran % 67.3, Lymph % (Auto) 16.3 L, [place] % (Auto) 14.4 H, Eos % (Auto) 1.1 L, Baso % (Auto) 0.9, Gran # 3.63, Lymph # (Auto) 0.9 L, [place] # (Auto) 0.8 H, Eos # (Auto) 0.1, Baso # (Auto) 0.05 I have reviewed the lab results: Yes - RAD Interpretation Narrative RAD Interpretations (Text): 01/06/2018 14:09 Chest X-Ray IMPRESSION: Left lower lobe infiltrate a finding identified on the prior study. No significant interval change on this single view portable study. Dictator: Mario Jennings MD Radiology Orders: 01/06/18 12:46 CHEST PORTABLE [RAD] Stat - Medication Orders Current Medication Orders: Dextrose/Sodium Chloride (Dextrose 5%/0.45% Ns 1000 Ml) 1,000 mls @ 100 mls/hr IV .Q10H CARLOS Discontinued Medications Dextrose (Dextrose 50% Inj) 50 ml IVP STAT STA Stop: 01/06/18 12:44 Last Admin: 01/06/18 12:43 Dose: 50 ml IVP Administration Document 01/06/18 12:43 GMD (Rec: 01/06/18 12:43 GMD [id number]) Charges for Administration # of IVP Administrations 1 - Scribe Statement The provider has reviewed the documentation as recorded by the Scribe Anselmo Marsh Provider Scribe Attestation: All medical record entries made by the Scribe were at my direction and personally dictated by me. I have reviewed the chart and agree that the record accurately reflects my personal performance of the history, physical exam, medical decision making, and the department course for this patient. I have also personally directed, reviewed, and agree with the discharge instructions and disposition. Disposition/Present on Arrival - Present on Arrival Any Indicators Present on Arrival: Yes History of DVT/PE: No History of Uncontrolled Diabetes: Yes Urinary Catheter: No History of Decub. Ulcer: No History Surgical Site Infection Following: None - Disposition Have Diagnosis and Disposition been Completed?: Yes Diagnosis: Hypoglycemia, Anemia, CKD (chronic kidney disease) Disposition: HOSPITALIZED Disposition Time: 13:55 Patient Plan: Observation Condition: FAIR
[2018-01-06 13:26] LABS: ALB/GLOB RATIO 0.7 (1.1-1.8); ALBUMIN 3.3 g/dL (3.0-4.8); CALCIUM 8.6 mg/dL (8.4-10.5)
--- NOTE | 2018-01-06 14:12 | RAD ---
Date of service: 01/06/2018 HISTORY: hypoglycemia COMPARISON: [id number] FINDINGS: LUNGS: Persistent infiltrate left lower lobe similar to that seen previously. PLEURA: No significant pleural effusion identified, no pneumothorax apparent. CARDIOVASCULAR: No atherosclerotic calcification present Cardiomegaly. No evidence of acute, significant cardiovascular disease. Position/ configuration of pacemaker Satisfactory. OSSEOUS STRUCTURES: No significant abnormalities. VISUALIZED UPPER ABDOMEN: Normal. OTHER FINDINGS: None. IMPRESSION: Left lower lobe infiltrate a finding identified on the prior study. No significant interval change on this single view portable study.
--- NOTE | 2018-01-06 15:15 | CARD ---
APPROVED REPORT Date of service: 01/06/2018 EKG Measurement Heart [id number] <Conclusion> Ventricular paced rhythm
[2018-01-06 18:04] VITALS: BMI 29.0
[2018-01-06] MEDS ORDERED: Influenza Vaccine 60 mcg/0.5 mL SYR (4YR UP) IM ONE (18:05)
[2018-01-06] MEDS ORDERED: Pneumococcal 23-Valent Vaccine IM ONE (18:05)
[2018-01-06] MEDS ORDERED: Oxycodone/Acetaminophen 5/325 mg Tab PO STA (18:23)
[2018-01-06] MEDS ORDERED: Albuterol-Ipratrop 3 mg / 0.5 (3 ml) UD IH PRN (21:11)
[2018-01-06] MEDS ORDERED: Budesonide 0.5 mg/2 ml Inhal Susp UD IH SCH (21:15)
[2018-01-06] MEDS ORDERED: BIMATOPROST OU SCH (22:00)
[2018-01-06] MEDS ORDERED: Latanoprost 2.5 ml Opht Soln OU SCH (22:00)
[2018-01-06] MEDS: Insulin Reg-LOW-Coverage SC SCH (23:01)
[2018-01-07] MEDS ORDERED: Oxycodone/Acetaminophen 5/325 mg Tab PO STA (01:17)
[2018-01-07 03:03] VITALS: PULSE 82
[2018-01-07] MEDS ORDERED: Levothyroxine 25 MCG TAB PO SCH (06:00)
[2018-01-07] MEDS ORDERED: Arformoterol 15 mcg/2 ml Inh Sol IH SCH (08:00)
[2018-01-07 08:19] VITALS: BP 128/75; RESP 20; TEMP 97.5; O2SAT 100
[2018-01-07] MEDS ORDERED: Bacitracin 500 Units/gm Oint Foilpak UD TOP SCH (10:00)
[2018-01-07] MEDS: Insulin Reg-LOW-Coverage SC SCH ×2 (10:50→12:34)
--- NOTE | 2018-01-07 14:54 | DS ---
DISCHARGE DIAGNOSES: 1. Hypoglycemia. 2. End-stage renal disease, on hemodialysis. 3. Chronic anemia. 4. Insulin-dependent diabetes mellitus. 5. Hypertension. 4. Peripheral vascular disease. HOSPITAL COURSE: The patient was admitted with hypoglycemia. He was treated with IV fluids with dextrose. Hypoglycemia resolved. Glucose was monitored during hospitalization, home medications were continued, glucoses are normal now. He was advised to cut down the Lantus insulin to 10 mg daily instead of 20 and continue sliding scale insulin. He is being discharged home in stable condition. PHYSICAL EXAMINATION: On discharge: GENERAL: Comfortable in bed, in no acute distress. VITAL SIGNS: Temperature 97.5, heart rate 82 per minute, blood pressure 128/75, respiratory rate 18 per minute, oxygen saturation 100% room air. HEENT: Pallor positive. NECK: No lymphadenopathy. CHEST: Air entry present and equal bilateral. No added sound. CARDIOVASCULAR: S1, S2 normal. No murmur. No gallop. ABDOMEN: Soft, nontender. No hepatosplenomegaly. EXTREMITIES: No edema. ASSOCIATE PROFESSOR OF LIBRARY MEDIA: Alert and oriented x3. No focal sensory motor deficit. CONDITION ON DISCHARGE: Stable. DISPOSITION: Discharged home. DISCHARGE MEDICATIONS: Resume home medication, cut down Lantus insulin to 10 mg, regular insulin as per sliding scale. FOLLOWUP RECOMMENDATIONS: To follow up with Dr. Higgins, discussed with Dr. Higgins about the insulin regimen. He demonstrated understanding the instructions very well. Time spent in preparing discharge and coordinating care, 55 minutes. Azalea Morris MD
--- NOTE | 2018-01-07 16:36 | HP ---
DATE OF EXAM: 01/06/2018 HISTORY OF PRESENT ILLNESS: Mr. Berger is a 52-year-old male with history of insulin-dependent diabetes mellitus, end-stage renal disease on hemodialysis, came to the ED with hypoglycemia. Blood sugar was 40 in the ED. He received bolus glucose. He was still hypoglycemic after that. He is currently on Lantus insulin 20 mg daily and sliding scale insulin. No history of fever, cough with expectoration. PAST MEDICAL HISTORY: Congestive cardiac failure, hypertension, COPD, end-stage renal disease on hemodialysis, diabetes mellitus type 2, hypothyroidism, history of blood transfusion, osteoarthritis, pancreatitis, history of hematuria, anxiety and depression. PAST SURGICAL HISTORY: Cholecystectomy, coronary stent placed, cardiac catheterization and amputation of few toes. PERSONAL HISTORY: Never smoked. No history of alcohol abuse. ALLERGIES: MULTIPLE DRUG ALLERGIES. MEDICATIONS: Insulin, NovoLog, amoxycillin, penicillin. Home medications as per MAR listed. REVIEW OF SYSTEM: As per HPI. Rest of 12-point review of systems reviewed, negative. PHYSICAL EXAMINATION: GENERAL: Comfortable in bed in no acute distress. Facial puffiness present. VITAL SIGNS: Temperature 98.6, heart rate is 60 per minute, blood pressure 120/78, oxygen saturation 98% room air and respiratory rate 15 per minute. HEENT: Pallor positive, facial puffiness present. NECK: No lymphadenopathy. CHEST: Air entry present and equal bilaterally. No added sounds. CARDIOVASCULAR: S1 and S2 normal. No murmur. No gallop. ABDOMEN: Soft and nontender. No hepatosplenomegaly. EXTREMITIES: Normal inspection, right lower extremity below-knee amputation, no edema. NEUROLOGIC: Alert and oriented x3. No focal sensory or motor deficit. LABORATORY DATA: Chest x-ray, no infiltrate. White count 5.4, hemoglobin 9.3, hematocrit 29.4 and platelets 99. Glucose 52. Chloride 101, potassium 3.7 and sodium 140. ASSESSMENT: 1. Hypoglycemia. 2. Insulin-dependent diabetes mellitus. 3. End-stage renal disease on hemodialysis. 4. Anemia, chronic. PLAN: He will be admitted to the hospital tele-monitoring, D5 half normal saline to be given, just regular insulin sliding scale, hold Lantus insulin. We will continue to monitor clinically. Glucose fingerstick q.a.c. and at bedtime. Aspirin 81 mg daily to continue, Lipitor 40 mg daily to continue, DuoNeb q.6 hours p.r.n., Tricor. Xalatan eyedrops, Lopressor 25 mg p.o. b.i.d., Lyrica 50 mg at bedtime, Synthroid 25 mg p.o. daily, Brilinta 90 mg p.o. b.i.d. and Flomax 0.4 mg at bedtime. Azalea Morris MD
== END 2018-01-07 14:23 | disposition home or self-care (01) ==
LOC: ED 12:26 → ERH 13:56 → 3RSO 19:39
PROVIDERS: ADMIT Internal Medicine Medical Oncology; ATTEND Internal Medicine Medical Oncology
DX: E11.649 Type 2 diabetes mellitus with hypoglycemia without coma (principal); N18.6 End stage renal disease; I13.2 Hypertensive heart and chronic kidney disease with heart failure and with stage 5 chronic kidney disease, or end stage renal disease; I50.9 Heart failure, unspecified; E11.22 Type 2 diabetes mellitus with diabetic chronic kidney disease; E11.51 Type 2 diabetes mellitus with diabetic peripheral angiopathy without gangrene; D64.9 Anemia, unspecified; E03.9 Hypothyroidism, unspecified; J44.9 Chronic obstructive pulmonary disease, unspecified; F32.9 Major depressive disorder, single episode, unspecified; F41.9 Anxiety disorder, unspecified; Z99.2 Dependence on renal dialysis; Z79.4 Long term (current) use of insulin; Z86.73 Personal history of transient ischemic attack (TIA), and cerebral infarction without residual deficits; Z89.511 Acquired absence of right leg below knee
CPT/HCPCS: 71045; 80053; 82803; 82948; 83735; 85025; 87040; 93005; 96374; 99285; G0378; J7042

== ENCOUNTER 2018-01-15 00:09 | Emergency (ER) | payer MEDICARE, OTHER ==
[2018-01-15 00:09] VITALS: BMI 29.0
[2018-01-15 00:25] VITALS: TEMP 98.2; O2SAT 100
[2018-01-15] MEDS ORDERED: Sodium Chloride 0.9% 1,000 ML IV STA ×3 (00:43→03:23)
--- NOTE | 2018-01-15 00:51 | ED PDOC ---
Arrival/HPI - General Chief Complaint: GI Problem Time Seen by Provider: 01/15/18 00:41 Historian: Patient - History of Present Illness Narrative History of Present Illness (Text): 01/15/18 00:51 52 y/o M w/ a PMHx of CHF, HTN, BPH, CVA, DM2, anemia, ESRD on HD, Neuropathy and recent R BKA with a PSHx of R BKA, cornea transplant, cholecystectomy presenting to the emergency department complaining of severe diarrhea for the past few months. The patient reports diarrhea has been non stop and states he has been experiencing associated difficulty sleeping, shortness of breath, chest discomfort. Patient denies any fever, chills, shortness of breath, chest pain,nausea, vomiting, hematuria, back pain, neck pain, headache, dizziness, or any other complaints. Time/Duration: > month (past few months ) Symptom Onset: Gradual Symptom Course: Unchanged Severity Level: Moderate Activities at Onset: Light Context: Home Past Medical History - Provider Review Nursing Documentation Reviewed: Yes - Past History Past History: No Previous - Infectious Disease Hx of Infectious Diseases: None - Tetanus Immunization Tetanus Immunization: Up to Date - Reproductive Currently Lactating: No - Cardiac Hx Cardiac Disorders: Yes (mi) Hx Congestive Heart Failure: Yes Hx Hypertension: Yes - Pulmonary Hx Chronic Obstructive Pulmonary Disease (COPD): Yes - Neurological HX Cerebrovascular Accident: Yes - HEENT Hx HEENT Disorder: Yes Hx Blind: No Hx Cataracts: Yes Hx Deafness: No Hx Difficulty Chewing: No - Renal Hx Renal Failure: Yes - Endocrine/Metabolic Hx Diabetes Mellitus Type 1: Yes Hx Hypothyroidism: Yes - Hematological/Oncological Hx AIDS: No Hx Anemia: Yes Hx Blood Transfusions: Yes Hx Blood Transfusion Reaction: No - Integumentary Hx Dermatological Disorder: No - Musculoskeletal/Rheumatological Hx Arthritis: Yes - Gastrointestinal Hx Gastrointestinal Disorders: Yes Hx Colostomy: No Hx Liver Failure: Yes Hx Pancreatitis: Yes - Genitourinary/Gynecological Hx Genitourinary Disorders: Yes Hx Hematuria: Yes - Psychiatric Hx Psychophysiologic Disorder: Yes Hx Anxiety: Yes Hx Substance Use: No - Surgical History Hx Amputation: Yes Hx Cardiac Catheterization: Yes Hx Cholecystectomy: Yes Hx Coronary Stent: Yes Hx Musculoskeletal Surgery: Yes - Anesthesia Hx Anesthesia: Yes Hx Anesthesia Reactions: No Hx Malignant Hyperthermia: No - Suicidal Assessment Feels Threatened In Home Enviroment: No Family/Social History - Physician Review Nursing Documentation Reviewed: Yes Family/Social History: Unknown Family HX Smoking Status: Never Smoked Hx Alcohol Use: No Hx Substance Use: No Hx Substance Use Treatment: No Allergies/Home Meds Allergies/Adverse Reactions: Allergies insulin aspart [From Novolog] Allergy (Intermediate, Verified 01/15/18 00:12) RASH ANY INSULIN THAT STARTS WITH NOV- moxifloxacin Allergy (Intermediate, Verified 01/15/18 00:12) RASH Penicillins Allergy (Intermediate, Verified 01/15/18 00:12) RASH insulin regular [From Novolin R Regular U-100 Insuln] Allergy (Verified 01/15/18 00:12) ITCHING Home Medications: Home Meds Medication Instructions Recorded Confirmed Diclofenac Sodium [Voltaren] 1 appl TOP DAILY 06/14/17 01/15/18 Ergocalciferol (Vitamin D2) 50,000 unit PO WED 06/16/17 01/15/18 [Vitamin D2] Bimatoprost [Lumigan] 1 drp OU HS 07/05/17 01/15/18 Salmeterol Xinafoate/Fluticaso 1 puff IH BID 07/05/17 01/15/18 [Advair Hfa 230-21] Fenofibrate [Triglide] 160 mg PO DAILY 10/16/17 01/15/18 Fluticasone Nasal [Flonase] 2 spr NS DAILY 10/16/17 01/15/18 Loratadine [Claritin] 10 mg PO HS 11/02/17 01/15/18 Sodium Chloride Nasal [place] [[place] 1 ml NS Q2 PRN 11/02/17 01/15/18 Nasal [place]] Review of Systems - Physician Review All systems were reviewed & negative as marked: Yes - Review of Systems Constitutional: Other (+difficulty sleeping). absent: Fevers, Night Sweats Respiratory: absent: SOB Cardiovascular: Other (Chest discomfort). absent: Chest Pain Gastrointestinal: Diarrhea Genitourinary Male: absent: Hematuria Musculoskeletal: absent: Back Pain, Neck Pain Neurological: absent: Headache, Dizziness Physical Exam Vital Signs Reviewed: Yes Vital Signs Temp Pulse Resp BP Pulse Ox 01/15/18 00:24 98.2 F 78 16 101/48 L 100 Temperature: Afebrile Blood Pressure: Hypotensive Pulse: Regular Respiratory Rate: Normal Appearance: Positive for: Well-Appearing, Non-Toxic, Comfortable Pain Distress: None Mental Status: Positive for: Alert and Oriented X 3 - Systems Exam Head: Present: Atraumatic, Normocephalic Pupils: Present: PERRL Extroacular Muscles: Present: EOMI Conjunctiva: Present: Normal Mouth: Present: Moist Mucous Membranes Neck: Present: Normal Range of Motion Respiratory/Chest: Present: Clear to Auscultation, Good Air Exchange. No: Respiratory Distress, Accessory Muscle Use Cardiovascular: Present: Regular Rate and Rhythm, Normal S1, S2. No: Murmurs Abdomen: Present: Distention (+adoemn is firm and distended), Other (+right sided bka ). No: Tenderness (no tenderness to palpation) Back: Present: Normal Inspection Upper Extremity: Present: NORMAL PULSES, Other (+left third digit amputation on left upper extremity) Lower Extremity: Present: Normal Inspection, NORMAL PULSES, Other (Right sided BKA). No: Edema Neurological: Present: GCS=15, CN II-XII Intact, Speech Normal Skin: Present: Warm, Dry, Normal Color. No: Rashes Psychiatric: Present: Alert, Oriented x 3, Normal Insight, Normal Concentration Medical Decision Making ED Course and Treatment: 01/15/18 00:55 Impression 52 y/o M presenting with severe diarrhea Differential Diagnoses Include But Are Not Limited To: C difficile diarrhea Gastroenteritis Plan --VBGx2 --Labs --Toradol --Duonebs --EKG --CXR --IV fluids --CDiff toxin and antigen --Reassess & disposition Progress Notes 01/15/18 05:41 Review of repeat VBG reveals improvement in lactate. Labs reviewed with creatinine slightly elevated and troponin consistent with underlying renal disease. Patient will go to outpatient dialysis today. He is encouraged to continue supportive measures at home and will follow up with his PCP. He is stable for discharge. - Medication Orders Current Medication Orders: Sodium Chloride (Sodium Chloride 0.9%) 1,000 mls @ 999 mls/hr IV .Q1H1M STA Stop: 01/15/18 01:43 - Scribe Statement The provider has reviewed the documentation as recorded by the Scribe Manasa Galeana All medical record entries made by the Scribe were at my direction and personally dictated by me. I have reviewed the chart and agree that the record accurately reflects my personal performance of the history, physical exam, medical decision making, and the department course for this patient. I have also personally directed, reviewed, and agree with the discharge instructions and disposition. Disposition/Present on Arrival - Present on Arrival Any Indicators Present on Arrival: Yes History of DVT/PE: No History of Uncontrolled Diabetes: Yes Urinary Catheter: No History of Decub. Ulcer: No History Surgical Site Infection Following: None - Disposition Have Diagnosis and Disposition been Completed?: Yes Diagnosis: Gastroenteritis Disposition: HOME/ ROUTINE Disposition Time: 05:14 Patient Plan: Discharge Patient Problems: Current Active Problems Problem Status Onset Gastroenteritis Acute Condition: IMPROVED Discharge Instructions (ExitCare): Gastroenteritis (ED) Referrals: Gallo Potter MD [Family Provider] - Follow up with primary Forms: [email or web address] ([place])
[2018-01-15 01:23] LABS: VENOUS BLOOD GAS BASE EXCESS -2.4 mmol/L (0.0-2.0); VENOUS BLOOD GAS PO2 50 mm/Hg (30-55); VENOUS BLOOD PH 7.26 (7.32-7.43)
[2018-01-15 01:25] LABS: BASO # 0.02 K/mm3 (0.0-2.0); BASO % 0.2 % (0.0-3.0); EOS # 0.1 (0.0-0.7); EOS % 0.7 % (1.5-5.0); GRAN % 80.2 % (50.0-68.0); LYMPH % 12.5 % (22.0-35.0); MEAN CELL VOLUME 95.8 fl (80.0-105.0); MEAN CORPUSCULAR HEMOGLOBIN 31.8 pg (25.0-35.0); MEAN CORPUSCULAR HGB CONC 33.2 g/dl (31.0-37.0); MONO # 0.5 (0.1-0.6); MONO % 6.4 % (1.0-6.0); PLATELET COUNT 138 10^3/uL (120.0-450.0); RBC 2.83 10^6/uL (3.5-6.1); WHITE BLOOD COUNT 8.1 10^3/uL (4.5-11.0)
[2018-01-15] MEDS ORDERED: Albuterol-Ipratrop 3 mg / 0.5 (3 ml) UD IH STA (01:25)
[2018-01-15 01:30] LABS: INR 1.96; PARTIAL THROMBOPLASTIN TIME 34.5 Seconds (25.1-36.5); PROTHROMBIN TIME 22.7 SECONDS (9.4-12.5)
[2018-01-15] MEDS ORDERED: Insulin Regular 1 UNITS/0.01 ML ML SC ONE (01:39)
[2018-01-15 02:43] LABS: TROPONIN I 0.18 ng/mL
[2018-01-15 03:12] LABS: CALCIUM 8.9 mg/dL (8.4-10.5)
[2018-01-15 03:13] LABS: ALB/GLOB RATIO 0.7 (1.1-1.8); ALBUMIN 3.2 g/dL (3.0-4.8)
[2018-01-15 05:18] VITALS: BP 111/60; PULSE 77; RESP 15
[2018-01-15 05:19] LABS: VENOUS BLOOD GAS BASE EXCESS 0.3 mmol/L (0.0-2.0); VENOUS BLOOD GAS PO2 189 mm/Hg (30-55); VENOUS BLOOD PH 7.35 (7.32-7.43)
--- NOTE | 2018-01-15 18:16 | CARD ---
APPROVED REPORT Date of service: 01/15/2018 EKG Measurement Heart [id number] <Conclusion> Likely Ventricular paced rhythm. Correlate clinically. Abnormal ECG
== END 2018-01-15 06:10 | disposition home or self-care (01) ==
LOC: ED 00:09
DX: K52.9 Noninfective gastroenteritis and colitis, unspecified (principal); I13.2 Hypertensive heart and chronic kidney disease with heart failure and with stage 5 chronic kidney disease, or end stage renal disease; I50.9 Heart failure, unspecified; N18.6 End stage renal disease; E11.22 Type 2 diabetes mellitus with diabetic chronic kidney disease; Z99.2 Dependence on renal dialysis
CPT/HCPCS: 80053; 82803; 82948; 83690; 83735; 84484; 85025; 85610; 85730; 93005; 96361; 96374; 99285; J1885; J7030

== ENCOUNTER 2018-01-15 23:26 | Inpatient (IN) | payer MEDICARE, OTHER ==
--- NOTE | 2018-01-16 00:55 | ED PDOC ---
Arrival/HPI - History of Present Illness Narrative History of Present Illness (Text): CC: abdominal pain and diarrhea 52 y/o Male w/ PMHx of CHF, HTN, BPH, CVA, DM2, anemia, ESRD on HD (T, Th, Sat), Neuropathy and recent R BKA with a PSHx of R BKA, cornea transplant, cholecystectomy presenting to the emergency department complaining of severe diarrhea for the past 1.5 months, associated with diffuse abdominal pain. Pt is a poor historian. Diarrhea is described as loose, black, one to two times per day. Although, pt then states that the diarrhea has not allowed him to sleep much. He has been experiencing associated difficulty sleeping, shortness of breath, chest discomfort. Patient denies any fever, chills, chest pain, nausea, vomiting, hematochezia. Pt has not been eating as much as he normally does because he hasn't had an appetite. Pt is on merrem and vancomycin for finger necrosis. Pt was last dialyzed 01/15. PMH: CHF, HTN, BPH, CVA, DM2, anemia, ESRD on HD, Neuropathy and recent R BKA PSH: R BKA, cornea transplant, cholecystectomy Meds: see MAR Allx: see MAR Time/Duration: > week Symptom Course: Unchanged Quality: Unable to Describe <Devon Del Valle - Last Filed: 01/16/18 05:30> <Olvin Rhoades - Last Filed: 01/16/18 05:50> - General Chief Complaint: GI Problem Time Seen by Provider: 01/15/18 23:57 Past Medical History - Provider Review Nursing Documentation Reviewed: Yes - Past History Past History: No Previous - Infectious Disease Hx of Infectious Diseases: None - Tetanus Immunization Tetanus Immunization: Up to Date - Reproductive Currently Lactating: No - Cardiac Hx Cardiac Disorders: Yes (mi) Hx Congestive Heart Failure: Yes Hx Hypertension: Yes - Pulmonary Hx Chronic Obstructive Pulmonary Disease (COPD): Yes - Neurological HX Cerebrovascular Accident: Yes - HEENT Hx HEENT Disorder: Yes Hx Blind: No Hx Cataracts: Yes Hx Deafness: No Hx Difficulty Chewing: No - Renal Hx Renal Failure: Yes - Endocrine/Metabolic Hx Diabetes Mellitus Type 1: Yes Hx Hypothyroidism: Yes - Hematological/Oncological Hx AIDS: No Hx Anemia: Yes Hx Blood Transfusions: Yes Hx Blood Transfusion Reaction: No - Integumentary Hx Dermatological Disorder: No - Musculoskeletal/Rheumatological Hx Arthritis: Yes - Gastrointestinal Hx Gastrointestinal Disorders: Yes Hx Colostomy: No Hx Liver Failure: Yes Hx Pancreatitis: Yes - Genitourinary/Gynecological Hx Genitourinary Disorders: Yes Hx Hematuria: Yes - Psychiatric Hx Psychophysiologic Disorder: Yes Hx Anxiety: Yes Hx Substance Use: No - Surgical History Hx Amputation: Yes Hx Cardiac Catheterization: Yes Hx Cholecystectomy: Yes Hx Coronary Stent: Yes Hx Musculoskeletal Surgery: Yes - Anesthesia Hx Anesthesia: Yes Hx Anesthesia Reactions: No Hx Malignant Hyperthermia: No - Suicidal Assessment Feels Threatened In Home Enviroment: No <Devon Del Valle - Last Filed: 01/16/18 05:30> Family/Social History - Physician Review Nursing Documentation Reviewed: Yes Family/Social History: Unknown Family HX Smoking Status: Never Smoked Hx Alcohol Use: No Hx Substance Use: No Hx Substance Use Treatment: No <Devon Del Valle - Last Filed: 01/16/18 05:30> Allergies/Home Meds <Devon Del Valle - Last Filed: 01/16/18 05:30> <Olvin Rhoades - Last Filed: 01/16/18 05:50> Allergies/Adverse Reactions: Allergies insulin aspart [From Novolog] Allergy (Intermediate, Verified 01/15/18 23:49) RASH ANY INSULIN THAT STARTS WITH NOV- moxifloxacin Allergy (Intermediate, Verified 01/15/18 23:49) RASH Penicillins Allergy (Intermediate, Verified 01/15/18 23:49) RASH insulin regular [From Novolin R Regular U-100 Insuln] Allergy (Verified 01/15/18 23:49) ITCHING Home Medications: Home Meds Medication Instructions Recorded Confirmed Diclofenac Sodium [Voltaren] 1 appl TOP DAILY 06/14/17 01/15/18 Ergocalciferol (Vitamin D2) 50,000 unit PO WED 06/16/17 01/15/18 [Vitamin D2] Bimatoprost [Lumigan] 1 drp OU HS 07/05/17 01/15/18 Salmeterol Xinafoate/Fluticaso 1 puff IH BID 07/05/17 01/15/18 [Advair Hfa 230-21] Fenofibrate [Triglide] 160 mg PO DAILY 10/16/17 01/15/18 Fluticasone Nasal [Flonase] 2 spr NS DAILY 10/16/17 01/15/18 Loratadine [Claritin] 10 mg PO HS 11/02/17 01/15/18 Sodium Chloride Nasal [place] [[place] 1 ml NS Q2 PRN 11/02/17 01/15/18 Nasal [place]] Review of Systems - Review of Systems Constitutional: Fatigue Eyes: Normal ENT: Normal Respiratory: SOB Cardiovascular: Normal Gastrointestinal: Abdominal Pain, Diarrhea Musculoskeletal: Normal Skin: Normal Neurological: Normal Endocrine: Normal Psychiatric: Normal <Devon Del Valle Filed: 01/16/18 05:30> Physical Exam Vital Signs Reviewed: Yes Temperature: Afebrile Blood Pressure: Normal Pulse: Regular Respiratory Rate: Normal Appearance: Positive for: Well-Appearing, Non-Toxic, Comfortable Mental Status: Positive for: Alert and Oriented X 3 Finger Stick Blood Glucose: 303 - Systems Exam Head: Present: Atraumatic, Normocephalic Extroacular Muscles: Present: EOMI Conjunctiva: Present: Normal Mouth: Present: Dry Respiratory/Chest: Present: Clear to Auscultation. No: Respiratory Distress, Accessory Muscle Use, Wheezes, Rales, Rhonchi Cardiovascular: Present: Murmurs, Irregular Rhythm, Gallop Abdomen: Present: Tenderness (diffuse abdominal tenderness), Distention (firm) Rectal: Present: Occult Blood (hemoccult positive; black liquid material on glove with scant brb), Rectal Tenderness, Hemorrhoids, Normal Rectal Tone. No: Fissures, Nodule/Mass/Lesions Upper Extremity: No: Normal Inspection ((+) finger amputation with dressing) Lower Extremity: No: Normal Inspection (right bka; left lower extremity with venous stasis changes), CALF TENDERNESS Neurological: Present: GCS=15 Skin: Present: Warm, Dry, Other ((+) small stage 2 sacral decubitus ulcer) Psychiatric: Present: Lethargic (but arousable) <Devon Del Valle Filed: 01/16/18 05:30> Vital Signs Temp Pulse Resp BP Pulse Ox 01/16/18 03:23 62 18 101/55 L 96 01/16/18 01:00 62 18 95/68 L 100 01/15/18 23:26 98.0 F 67 18 108/62 100 <Olvin Rhoades Filed: 01/16/18 05:50> Medical Decision Making - RAD Interpretation Radiology Orders: 01/16/18 00:18 CHEST PORTABLE [RAD] Stat <Devon Del Valle - Last Filed: 01/16/18 05:30> - Lab Interpretations Lab Results: 01/16/18 01:05 01/16/18 01:05 Lab Results 01/16/18 01:05: Sodium 138, Chloride 96 L, Potassium 4.1, Carbon Dioxide 32, Anion Gap 15, BUN 26 H, Creatinine 4.1 H, Est GFR ( Amer) 18, Est GFR (Non-Af Amer) 15, Random Glucose 299 H, Calcium 8.4, Phosphorus 3.6, Magnesium 1.8, Total Bilirubin 1.3, AST 45, ALT 19, Alkaline Phosphatase 94, Troponin I 0.12 D, NT-Pro-B Natriuret Pep 41333 H, Total Protein 7.0, Albumin 3.0, Globulin 4.1, Albumin/Globulin Ratio 0.7 L 01/16/18 01:05: WBC 8.6, RBC 3.06 L, Hgb 9.5 L, Hct 29.3 L, MCV 95.8, MCH 31.0, MCHC 32.4, RDW 18.2 H, Plt Count 105 L, MPV 13.4 H, Gran % 82.0 H, Lymph % (Auto) 7.6 L, [place] % (Auto) 9.1 H, Eos % (Auto) 1.2 L, Baso % (Auto) 0.1, Gran # 7.04 H, Lymph # (Auto) 0.7 L, [place] # (Auto) 0.8 H, Eos # (Auto) 0.1, Baso # (Auto) 0.01 01/16/18 01:05: pO2 27 L, VBG pH 7.39, VBG pCO2 56.0, VBG HCO3 33.9 H, VBG Total CO2 35.6 H, VBG O2 Sat (Calc) 45.6, VBG Base Excess 7.1 H, VBG Potassium 4.1, Sodium 137.0, Chloride 99.0, Glucose 314 H, Lactate 2.7 H, FiO2 21.0, Venous Blood Potassium 4.1 - RAD Interpretation Radiology Orders: 01/16/18 00:18 CHEST PORTABLE [RAD] Stat - Medication Orders Current Medication Orders: Discontinued Medications Sodium Chloride (Sodium Chloride 0.9%) 1,000 mls @ 999 mls/hr IV .Q1H1M STA Stop: 01/16/18 03:10 Last Admin: 01/16/18 02:23 Dose: 999 mls/hr eMAR Start Stop Document 01/16/18 02:23 AD (Rec: 01/16/18 02:24 [place] [facility] [id number] Intravenous Solution Start Date 01/16/18 Start Time 02:24 <Olvin Rhoades - Last Filed: 01/16/18 05:50> - Scribe Statement The provider has reviewed the documentation as recorded by the Scribe Patient Seen with Resident: In agreement with resident note which contains more details about the patient. Patient seen and evaluated with resident. Came up with plan and treatment together. <Olvin Rhoades - Last Filed: 01/16/18 05:50> Disposition/Present on Arrival - Present on Arrival Any Indicators Present on Arrival: Yes History of DVT/PE: No History of Uncontrolled Diabetes: Yes Urinary Catheter: No History of Decub. Ulcer: Yes (approximately 3mm by 3mm circular stage 2 sacral decubitus ulcer) History Surgical Site Infection Following: None - Disposition Have Diagnosis and Disposition been Completed?: Yes Disposition Time: 02:29 Patient Plan: Observation (remote tele) <Devon Del Valle - Last Filed: 01/16/18 05:30> <Olvin Rhoades - Last Filed: 01/16/18 05:50> - Disposition Diagnosis: Diarrhea Disposition: HOSPITALIZED Condition: STABLE
[2018-01-16 01:18] LABS: BASO # 0.01 K/mm3 (0.0-2.0); BASO % 0.1 % (0.0-3.0); EOS # 0.1 (0.0-0.7); EOS % 1.2 % (1.5-5.0); GRAN # 7.04 (1.4-6.5); HEMOGLOBIN 9.5 g/dL (14.0-18.0); LYMPH # 0.7 (1.2-3.4); LYMPH % 7.6 % (22.0-35.0); MEAN CELL VOLUME 95.8 fl (80.0-105.0); MEAN CORPUSCULAR HGB CONC 32.4 g/dl (31.0-37.0); MEAN PLATELET VOLUME 13.4 fl (7.0-11.0); MONO # 0.8 (0.1-0.6); MONO % 9.1 % (1.0-6.0); RBC 3.06 10^6/uL (3.5-6.1); RED CELL DISTRIBUTION WIDTH 18.2 % (11.5-14.5); WHITE BLOOD COUNT 8.6 10^3/uL (4.5-11.0)
[2018-01-16 01:21] LABS: VENOUS BLOOD GAS BASE EXCESS 7.1 mmol/L (0.0-2.0); VENOUS BLOOD GAS PO2 27 mm/Hg (30-55); VENOUS BLOOD PH 7.39 (7.32-7.43)
[2018-01-16 01:35] LABS: ALB/GLOB RATIO 0.7 (1.1-1.8); CALCIUM 8.4 mg/dL (8.4-10.5)
[2018-01-16 02:04] LABS: TROPONIN I 0.12 ng/mL
[2018-01-16] MEDS ORDERED: Sodium Chloride 0.9% 1,000 ML IV STA (02:10)
[2018-01-16 04:07] VITALS: BMI 29.0
[2018-01-16 04:55] LABS: VENOUS BLOOD GAS BASE EXCESS 5.5 mmol/L (0.0-2.0); VENOUS BLOOD GAS PO2 59 mm/Hg (30-55); VENOUS BLOOD PH 7.37 (7.32-7.43)
[2018-01-16] MEDS ORDERED: Barium Sulfate Susp 2.1% w/v, 2.0% w/w 450 mL Bottle PO ONE (08:34)
[2018-01-16] MEDS ORDERED: Oxycodone/Acetaminophen 10/325 mg Tab PO PRN (08:36)
[2018-01-16] MEDS ORDERED: Fluticasone Nasal 50 mcg/Spray NS PRN (08:36)
[2018-01-16] MEDS ORDERED: guaiFENesin 600 mg ER Tab PO PRN (08:36)
--- NOTE | 2018-01-16 09:25 | CP.PCM.HP ---
History of Present Illness - History of Present Illness History of Present Illness: HPI for Dr. Potter 52 y/o Male w/ PMHx of CHF, HTN, BPH, CVA, DM2, anemia, ESRD on HD (T, , Mon), left middle finger amputation, neuropathy and recent R BKA with a PSHx of R BKA, cornea transplant, cholecystectomy presenting to the emergency department complaining of severe diarrhea for the past 1.5 months, associated with diffuse abdominal pain that has worsened in the past two dayswith associated melena. Diarrhea is described as loose, black, one to two times per day. Patient states that the diarrhea has not allowed him to sleep much. He has been experiencing associated difficulty sleeping, shortness of breath, chest discomfort which he attrributes to his current medical complaint. Patient denies any fever, chills, chest pain, nausea, vomiting, hematochezia. Pt has not been eating as much as he normally does because he hasn't had an appetite. Patient completed his course of Merrem and Vancomycin for finger necrosis. PMhx: [place] [facility] [place], IDDM, CHF, COPD, CAD s/p stents, pacemaker PSurgHx: L AV fistula, cholecystectomy, R BKA in Oct 2017, L cornea transplant, pacemaker placement Home meds: Reviewed as per MAR Allergies: insulin (aspart and regular), PCN, moxifloxacin Soc Hx: denies EtOH, tobacco, or drug use Fam Hx: Mom - ERSD, end-stage coronary disease Present on Admission - Present on Admission Any Indicators Present on Admission: Yes Review of Systems - Review of Systems All systems: reviewed and no additional remarkable complaints except (as per HPI) Past Patient History - Infectious Disease Hx of Infectious Diseases: None - Tetanus Immunizations Tetanus Immunization: Up to Date - Past Medical History & Family History Past Medical History?: Yes - Past Social History Smoking Status: Never Smoked - CARDIAC Hx Cardiac Disorders: Yes (mi) Hx Congestive Heart Failure: Yes Hx Hypertension: Yes - PULMONARY Hx Chronic Obstructive Pulmonary Disease (COPD): Yes - NEUROLOGICAL HX Cerebrovascular Accident: Yes - HEENT Hx HEENT Problems: Yes Hx Blind: No Hx Cataracts: Yes Hx Deafness: No Hx Difficulty Chewing: No - RENAL Hx Renal Failure: Yes - ENDOCRINE/METABOLIC Hx Diabetes Mellitus Type 1: Yes Hx Hypothyroidism: Yes - HEMATOLOGICAL/ONCOLOGICAL Hx AIDS: No Hx Anemia: Yes Hx Blood Transfusions: Yes Hx Blood Transfusion Reaction: No - INTEGUMENTARY Hx Dermatological Problems: No - MUSCULOSKELETAL/RHEUMATOLOGICAL Hx Arthritis: Yes - GASTROINTESTINAL Hx Gastrointestinal Disorders: Yes Hx Colostomy: No Hx Liver Failure: Yes Hx Pancreatitis: Yes - GENITOURINARY/GYNECOLOGICAL Hx Genitourinary Disorders: Yes Hx Hematuria: Yes - PSYCHIATRIC Hx Psychophysiologic Disorder: Yes Hx Anxiety: Yes Hx Substance Use: No - SURGICAL HISTORY Hx Amputation: Yes Hx Cardiac Catheterization: Yes Hx Cholecystectomy: Yes Hx Coronary Stent: Yes Hx Musculoskeletal Surgery: Yes - ANESTHESIA Hx Anesthesia: Yes Hx Anesthesia Reactions: No Hx Malignant Hyperthermia: No Meds Allergies/Adverse Reactions: Allergies Allergy/AdvReac Type Severity Reaction Status Date / Time insulin aspart [From Novolog] Allergy Intermediate RASH Verified 01/15/18 23:49 moxifloxacin Allergy Intermediate RASH Verified 01/15/18 23:49 Penicillins Allergy Intermediate RASH Verified 01/15/18 23:49 insulin regular Allergy ITCHING Verified 01/15/18 23:49 [From Novolin R Regular U-100 Insuln] Physical Exam - Constitutional Appears: No Acute Distress - Head Exam Head Exam: ATRAUMATIC, NORMOCEPHALIC - Eye Exam Eye Exam: EOMI, Normal appearance - ENT Exam ENT Exam: Mucous Membranes Moist - Neck Exam Neck exam: Positive for: Normal Inspection - Respiratory Exam Respiratory Exam: Decreased Breath Sounds (in lung base), NORMAL BREATHING PATTERN. absent: Accessory Muscle Use - Cardiovascular Exam Cardiovascular Exam: RRR, +S1, +S2 - GI/Abdominal Exam GI & Abdominal Exam: Normal Bowel Sounds, Soft - Extremities Exam Extremities exam: Positive for: pedal edema. Negative for: calf tenderness - Neurological Exam Neurological exam: Alert, Oriented x3 - Psychiatric Exam Psychiatric exam: Normal Affect, Normal Mood - Skin Skin Exam: Dry (gangrenen developing in hands), Warm Results - Vital Signs Recent Vital Signs: Last Vital Signs Temp 98.0 F 01/15/18 23:26 Pulse 63 01/16/18 06:00 Resp 20 01/16/18 04:00 BP 101/55 L 01/16/18 03:45 Pulse Ox 98 01/16/18 03:45 - Labs Result Diagrams: 01/16/18 01:05 01/16/18 01:05 Labs: Laboratory Results - last 24 hr 01/16/18 01/16/18 01/16/18 01:05 01:05 01:05 WBC 8.6 RBC 3.06 L Hgb 9.5 L Hct 29.3 L MCV 95.8 MCH 31.0 MCHC 32.4 RDW 18.2 H Plt Count 105 L MPV 13.4 H Gran % 82.0 H Lymph % (Auto) 7.6 L [place] % (Auto) 9.1 H Eos % (Auto) 1.2 L Baso % (Auto) 0.1 Gran # 7.04 H Lymph # (Auto) 0.7 L [place] # (Auto) 0.8 H Eos # (Auto) 0.1 Baso # (Auto) 0.01 pO2 27 L VBG pH 7.39 VBG pCO2 56.0 VBG HCO3 33.9 H VBG Total CO2 35.6 H VBG O2 Sat (Calc) 45.6 VBG Base Excess 7.1 H VBG Potassium 4.1 Sodium 137.0 138 Chloride 99.0 96 L Glucose 314 H Lactate 2.7 H FiO2 21.0 Potassium 4.1 Carbon Dioxide 32 Anion Gap 15 BUN 26 H Creatinine 4.1 H Est GFR ( Amer) 18 Est GFR (Non-Af Amer) 15 Random Glucose 299 H Calcium 8.4 Phosphorus 3.6 Magnesium 1.8 Total Bilirubin 1.3 AST 45 ALT 19 Alkaline Phosphatase 94 Troponin I 0.12 D NT-Pro-B Natriuret Pep 61339 H Total Protein 7.0 Albumin 3.0 Globulin 4.1 Albumin/Globulin Ratio 0.7 L Venous Blood Potassium 4.1 01/16/18 04:25 WBC RBC Hgb Hct MCV MCH MCHC RDW Plt Count MPV Gran % Lymph % (Auto) [place] % (Auto) Eos % (Auto) Baso % (Auto) Gran # Lymph # (Auto) [place] # (Auto) Eos # (Auto) Baso # (Auto) pO2 59 H VBG pH 7.37 VBG pCO2 56.0 VBG HCO3 32.4 H VBG Total CO2 34.1 H VBG O2 Sat (Calc) 90.8 H VBG Base Excess 5.5 H VBG Potassium 4.1 Sodium 138.0 Chloride 101.0 Glucose 259 H Lactate 2.9 H FiO2 21.0 Potassium Carbon Dioxide Anion Gap BUN Creatinine Est GFR ( Amer) Est GFR (Non-Af Amer) Random Glucose Calcium Phosphorus Magnesium Total Bilirubin AST ALT Alkaline Phosphatase Troponin I NT-Pro-B Natriuret Pep Total Protein Albumin Globulin Albumin/Globulin Ratio Venous Blood Potassium 4.1 Assessment & Plan - Assessment and Plan (Free Text) Assessment: 52 year old male with a past medical history notable for ESRD, CAD with CT 4 months ago, right BKA, and left third digit amputation who presents with melena and diarrhea. He remains hemdynamically stable. His hemglobin is stable. Patient needs dialysis. Plan: 1) Diarrhea and melena - GI consulted, Dr. Mcdaniel - Stool for C. difficile toxin and antigen - 2) ESRD - Dialysis today with 2L to be removed - Will monitor electrolytes daily 3) CAD and complaints of dyspnea - Continue Brillinta 90 mg BID - Aspirin 81 mg - Metroprolol 25 mg BID - Atorvastatin 80 mg HS - Dr. Erickson consulted 4) DM II - Humulin regular ISS with ACHS fingerstick BG - HgbA1c ordered, not particularly helpful in patients on dialysis 5) Peripheral Neuropathy - Pregabalin 50 mg HS - Percocet 10 mg q6h PRN for pain 6) Upper respiratory symptoms - Mucinex [place] 650 PRN - Flonase PRN 7) Hypothyroidism - Levothyroxine 25 mcg PO daily 8) Right BKA and left middle finger amputation - Wound care needed - Dr. Urrutia consulted, expertise appreciated 9) Dyslipidemia - Fenofibrate 145 mg PO daily Case was reviewed and discussed with attending physician, Dr. Potter - Date & Time Date: 01/16/18 Time: 15:43
--- NOTE | 2018-01-16 09:33 | RAD ---
Date of service: 01/16/2018 HISTORY: sob COMPARISON: Portable chest 01/06/2018. FINDINGS: LUNGS: Permanent pacemaker reiterated. Cardiomegaly stable. Borderline pulmonary vascular congestion. No right-sided airspace disease. Left basilar atelectasis or infiltrate in question as well as potential left pleural effusion. No right pleural effusion. No pneumothorax bilaterally. PLEURA: As above. CARDIOVASCULAR: No aortic atherosclerotic calcification present. OSSEOUS STRUCTURES: No significant abnormalities. VISUALIZED UPPER ABDOMEN: Normal. OTHER FINDINGS: None. IMPRESSION: Limited left basilar airspace disease and pleural effusion are not excluded. Cardiomegaly obscures left base. Borderline pulmonary vascular congestion.
[2018-01-16] MEDS ORDERED: SALMETEROL XINAFOATE IH SCH (10:00)
[2018-01-16] MEDS ORDERED: FLUTICASO IH SCH (10:00)
--- NOTE | 2018-01-16 11:14 | CP.PCM.CON ---
<LiudmilaKuldip florez R - Last Filed: 01/16/18 11:11> History of Present Illness - History of Present Illness History of Present Illness: PGY-2 GI consult note for Dr Ahn 52 y/o Male w/ PMHx of CHF, HTN, BPH, CVA, DM2, anemia, ESRD on HD (T, Th, Sat), Neuropathy and recent R BKA with a PSHx of R BKA, cornea transplant, cholecystectomy presenting to the emergency department complaining of severe diarrhea for the past 1.5 months, associated with diffuse abdominal pain. Pt is a poor historian. Diarrhea is described as loose, black, one to two times per day. Although, pt then states that the diarrhea has not allowed him to sleep much. He has been experiencing associated difficulty sleeping, shortness of breath, chest discomfort. Patient denies any fever, chills, chest pain, nausea, vomiting, hematochezia. Pt has not been eating as much as he normally does because he hasn't had an appetite. Pt is on merrem and vancomycin for finger necrosis. Some history was collected from chart review as patient is a poor historian. PMhx: ESRD on HD MWF (last received HD today at [facility]), PAD, IDDM, CHF, COPD, CAD s/p stents, pacemaker PSurgHx: L AV fistula, cholecystectomy, R BKA in Oct 2017, L cornea transplant, pacemaker placement Home meds: Reviewed as per MAY Allergies: insulin (aspart and regular), PCN, moxifloxacin Soc Hx: denies EtOH, tobacco, or drug use Fam Hx: Mom - ERSD, end-stage coronary disease Review of Systems - Constitutional Constitutional: absent: Chills, Fever - EENT Eyes: absent: Change in Vision - Cardiovascular Cardiovascular: absent: Chest Pain - Respiratory Respiratory: absent: Hemoptysis - Gastrointestinal Gastrointestinal: Abdominal Pain, Bloating, Diarrhea - Genitourinary Genitourinary: absent: Dysuria - Musculoskeletal Musculoskeletal: Back Pain - Integumentary Integumentary: absent: Bleeding Lesions Past Patient History - Infectious Disease Hx of Infectious Diseases: None - Tetanus Immunizations Tetanus Immunization: Up to Date - Past Medical History & Family History Past Medical History?: Yes - Past Social History Smoking Status: Never Smoked - CARDIAC Hx Cardiac Disorders: Yes (mi) Hx Congestive Heart Failure: Yes Hx Hypertension: Yes - PULMONARY Hx Chronic Obstructive Pulmonary Disease (COPD): Yes - NEUROLOGICAL HX Cerebrovascular Accident: Yes - HEENT Hx HEENT Problems: Yes Hx Blind: No Hx Cataracts: Yes Hx Deafness: No Hx Difficulty Chewing: No - RENAL Hx Renal Failure: Yes - ENDOCRINE/METABOLIC Hx Diabetes Mellitus Type 1: Yes Hx Hypothyroidism: Yes - HEMATOLOGICAL/ONCOLOGICAL Hx AIDS: No Hx Anemia: Yes Hx Blood Transfusions: Yes Hx Blood Transfusion Reaction: No - INTEGUMENTARY Hx Dermatological Problems: No - MUSCULOSKELETAL/RHEUMATOLOGICAL Hx Arthritis: Yes - GASTROINTESTINAL Hx Gastrointestinal Disorders: Yes Hx Colostomy: No Hx Liver Failure: Yes Hx Pancreatitis: Yes - GENITOURINARY/GYNECOLOGICAL Hx Genitourinary Disorders: Yes Hx Hematuria: Yes - PSYCHIATRIC Hx Psychophysiologic Disorder: Yes Hx Anxiety: Yes Hx Substance Use: No - SURGICAL HISTORY Hx Amputation: Yes Hx Cardiac Catheterization: Yes Hx Cholecystectomy: Yes Hx Coronary Stent: Yes Hx Musculoskeletal Surgery: Yes - ANESTHESIA Hx Anesthesia: Yes Hx Anesthesia Reactions: No Hx Malignant Hyperthermia: No Meds Allergies/Adverse Reactions: Allergies Allergy/AdvReac Type Severity Reaction Status Date / Time insulin aspart [From Novolog] Allergy Intermediate RASH Verified 01/15/18 23:49 moxifloxacin Allergy Intermediate RASH Verified 01/15/18 23:49 Penicillins Allergy Intermediate RASH Verified 01/15/18 23:49 insulin regular Allergy ITCHING Verified 01/15/18 23:49 [From Novolin R Regular U-100 Insuln] - Medications Medications: Current Medications Albuterol/Ipratropium (Duoneb 3 Mg/0.5 Mg (3 Ml) Ud) 3 ml IH [id number] PRN PRN Reason: Shortness of Breath Arformoterol Tartrate (Brovana) 15 mcg IH [id number] CARLOS Aspirin (Ecotrin) 81 mg PO DAILY CARLOS Atorvastatin Calcium (Lipitor) 80 mg PO HS CARLOS Bacitracin (Bacitracin) 1 ea TOP BID CARLOS Budesonide (Pulmicort Respules) 0.5 mg IH Q12H CARLOS Fenofibrate (Tricor) 145 mg PO DAILY CARLOS Fluticasone Propionate (Flonase) 1 actuation NS DAILY PRN PRN Reason: Nasal congestion Guaifenesin (Mucinex La) 600 mg PO BID PRN PRN Reason: Cough Insulin Human Regular (Humulin R) 2 units SC AC CARLOS Latanoprost (Xalatan Opht) 0 ml OU HS CARLOS Levothyroxine Sodium (Synthroid) 25 mcg PO 0600 CARLOS Metoprolol Tartrate (Lopressor) 25 mg PO BID CARLOS Oxycodone/Acetaminophen (Percocet 10/325 Mg Tab) 1 tab PO Q6H PRN PRN Reason: Pain, moderate (4-7) Pregabalin (Lyrica) 50 mg PO HS [facility] Sodium Chloride ([place] Nasal [place]) 0 ml NS Q2 PRN PRN Reason: nasal congestion. Ticagrelor (Brilinta) 90 mg PO BID CARLOS Physical Exam - Additional Findings Additional findings: - Constitutional Appears: Non-toxic, No Acute Distress, Older Than Stated Age, Chronically Ill - Head Exam Head Exam: ATRAUMATIC, NORMOCEPHALIC - Eye Exam Eye Exam: EOMI, Normal appearance, PERRL - ENT Exam ENT Exam: Mucous Membranes Moist - Respiratory Exam Respiratory Exam: Clear to Auscultation Bilateral, NORMAL BREATHING PATTERN. absent: Rales, Rhonchi, Wheezes - Cardiovascular Exam Cardiovascular Exam: REGULAR RHYTHM, +S1, +S2. absent: Gallop, Rubs, Systolic Murmur - GI/Abdominal Exam GI & Abdominal Exam: Normal Bowel Sounds, Soft. absent: Distended, Firm, Guarding, Rebound, Rigid, Tenderness - Extremities Exam Extremities exam: Positive for: full ROM Additional comments: S/p R BKA, dressing site c/d/i; L middle finger necrotic down to PIP, no abnormal drainage noted, painful with movement - Neurological Exam Neurological exam: Alert, CN II-XII Intact, Oriented x3 - Psychiatric Exam Psychiatric exam: Normal Affect, Normal Mood - Skin Skin Exam: Dry, Intact, Warm Results - Vital Signs Recent Vital Signs: Last Vital Signs Temp 98.0 F 01/15/18 23:26 Pulse 63 01/16/18 06:00 Resp 20 01/16/18 04:00 BP 101/55 L 01/16/18 03:45 Pulse Ox 98 01/16/18 03:45 - Labs Result Diagrams: 01/16/18 01:05 01/16/18 01:05 Labs: Laboratory Results - last 24 hr 01/16/18 01/16/18 01/16/18 01:05 01:05 01:05 WBC 8.6 RBC 3.06 L Hgb 9.5 L Hct 29.3 L MCV 95.8 MCH 31.0 MCHC 32.4 RDW 18.2 H Plt Count 105 L MPV 13.4 H Gran % 82.0 H Lymph % (Auto) 7.6 L Faulkner % (Auto) 9.1 H Eos % (Auto) 1.2 L Baso % (Auto) 0.1 Gran # 7.04 H Lymph # (Auto) 0.7 L Faulkner # (Auto) 0.8 H Eos # (Auto) 0.1 Baso # (Auto) 0.01 pO2 27 L VBG pH 7.39 VBG pCO2 56.0 VBG HCO3 33.9 H VBG Total CO2 35.6 H VBG O2 Sat (Calc) 45.6 VBG Base Excess 7.1 H VBG Potassium 4.1 Sodium 137.0 138 Chloride 99.0 96 L Glucose 314 H Lactate 2.7 H FiO2 21.0 Potassium 4.1 Carbon Dioxide 32 Anion Gap 15 BUN 26 H Creatinine 4.1 H Est GFR ( Amer) 18 Est GFR (Non-Af Amer) 15 Random Glucose 299 H Calcium 8.4 Phosphorus 3.6 Magnesium 1.8 Total Bilirubin 1.3 AST 45 ALT 19 Alkaline Phosphatase 94 Troponin I 0.12 D NT-Pro-B Natriuret Pep 53573 H Total Protein 7.0 Albumin 3.0 Globulin 4.1 Albumin/Globulin Ratio 0.7 L Venous Blood Potassium 4.1 01/16/18 04:25 WBC RBC Hgb Hct MCV MCH MCHC RDW Plt Count MPV Gran % Lymph % (Auto) Faulkner % (Auto) Eos % (Auto) Baso % (Auto) Gran # Lymph # (Auto) Faulkner # (Auto) Eos # (Auto) Baso # (Auto) pO2 59 H VBG pH 7.37 VBG pCO2 56.0 VBG HCO3 32.4 H VBG Total CO2 34.1 H VBG O2 Sat (Calc) 90.8 H VBG Base Excess 5.5 H VBG Potassium 4.1 Sodium 138.0 Chloride 101.0 Glucose 259 H Lactate 2.9 H FiO2 21.0 Potassium Carbon Dioxide Anion Gap BUN Creatinine Est GFR ( Amer) Est GFR (Non-Af Amer) Random Glucose Calcium Phosphorus Magnesium Total Bilirubin AST ALT Alkaline Phosphatase Troponin I NT-Pro-B Natriuret Pep Total Protein Albumin Globulin Albumin/Globulin Ratio Venous Blood Potassium 4.1 Assessment & Plan - Assessment and Plan (Free Text) Plan: 52 y/o Male w/ PMHx of CHF, HTN, BPH, CVA, DM2, anemia, ESRD on HD (T, Th, Sat), Neuropathy and recent R BKA with a PSHx of R BKA, cornea transplant, cholecystectomy presenting to the emergency department complaining of severe diarrhea intermittent for the past 2 weeks, associated with diffuse abdominal pain: Diarrhea -possibly cdiff induced as patient was on abx meropenem and vanco for approx 12 days for recent inpatient admission for finger necrosis, patient was then discharged on vanco iv (infused with dialysis) which was continued for an additional 2 weeks -currently afebrile, no white count -f/u cdiff toxin and antigen -f/u vre screen -f/u CT abd/pelvis po and iv contrast Seen and discussed with Dr Ahn. <Jacquelin Ahn V - Last Filed: 01/17/18 00:10> Meds - Medications Medications: Current Medications Albuterol/Ipratropium (Duoneb 3 Mg/0.5 Mg (3 Ml) Ud) 3 ml IH [id number] PRN PRN Reason: Shortness of Breath Arformoterol Tartrate (Brovana) 15 mcg IH [id number] [facility] Last Admin: 01/16/18 20:43 Dose: 15 mcg Aspirin (Ecotrin) 81 mg PO DAILY CARLOS Last Admin: 01/16/18 17:44 Dose: 81 mg Atorvastatin Calcium (Lipitor) 80 mg PO HS CARLOS Last Admin: 01/16/18 22:03 Dose: 80 mg Bacitracin (Bacitracin) 1 ea TOP BID CARLOS Last Admin: 01/16/18 17:45 Dose: 1 ea Budesonide (Pulmicort Respules) 0.5 mg IH Q12H CARLOS Last Admin: 01/16/18 20:44 Dose: 0.5 mg Collagenase (Santyl) 1 gm TOP DAILY CARLOS Last Admin: 01/16/18 17:45 Dose: Not Given Famotidine (Pepcid) 20 mg PO HS [facility] Last Admin: 01/16/18 22:03 Dose: 20 mg Fenofibrate (Tricor) 145 mg PO DAILY CARLOS Last Admin: 01/16/18 17:44 Dose: 145 mg Fluticasone Propionate (Flonase) 1 actuation NS DAILY PRN PRN Reason: Nasal congestion Guaifenesin (Mucinex La) 600 mg PO BID PRN PRN Reason: Cough Heparin Sodium (Porcine) (Heparin) 5,000 units SC Q12 [facility]; Protocol Last Admin: 01/16/18 22:03 Dose: 5,000 units Insulin Human Regular (Humulin R) 2 units SC AC [facility] Last Admin: 01/16/18 17:45 Dose: Not Given Insulin Human Regular (Humulin R Med) 0 units SC ACHS [facility]; Protocol Last Admin: 01/16/18 22:38 Dose: Not Given Latanoprost (Xalatan Opht) 0 ml OU HS [facility] Last Admin: 01/16/18 22:04 Dose: 2.5 ml Levothyroxine Sodium (Synthroid) 25 mcg PO 0600 [facility] Metoprolol Tartrate (Lopressor) 25 mg PO BID [facility] Last Admin: 01/16/18 17:45 Dose: 25 mg Oxycodone/Acetaminophen (Percocet 10/325 Mg Tab) 1 tab PO Q6H PRN PRN Reason: Pain, moderate (4-7) Last Admin: 01/16/18 17:44 Dose: 1 tab Pregabalin (Lyrica) 50 mg PO HS [facility] Last Admin: 01/16/18 22:03 Dose: 50 mg Sodium Chloride ([place] Nasal Ed[place]) 0 ml NS Q2 PRN PRN Reason: nasal congestion. Ticagrelor (Brilinta) 90 mg PO BID [facility] Last Admin: 01/16/18 17:44 Dose: 90 mg Results - Vital Signs Recent Vital Signs: Last Vital Signs Temp 99 F 01/16/18 12:00 Pulse 66 01/16/18 18:00 Resp 18 01/16/18 12:00 BP 100/52 L 01/16/18 12:00 Pulse Ox 98 01/16/18 03:45 - Labs Result Diagrams: 01/16/18 01:05 01/16/18 01:05 Labs: Laboratory Results - last 24 hr 01/16/18 01/16/18 01/16/18 01:05 01:05 01:05 WBC 8.6 RBC 3.06 L Hgb 9.5 L Hct 29.3 L MCV 95.8 MCH 31.0 MCHC 32.4 RDW 18.2 H Plt Count 105 L MPV 13.4 H Gran % 82.0 H Lymph % (Auto) 7.6 L Faulkner % (Auto) 9.1 H Eos % (Auto) 1.2 L Baso % (Auto) 0.1 Gran # 7.04 H Lymph # (Auto) 0.7 L Faulkner # (Auto) 0.8 H Eos # (Auto) 0.1 Baso # (Auto) 0.01 pO2 27 L VBG pH 7.39 VBG pCO2 56.0 VBG HCO3 33.9 H VBG Total CO2 35.6 H VBG O2 Sat (Calc) 45.6 VBG Base Excess 7.1 H VBG Potassium 4.1 Sodium 137.0 138 Chloride 99.0 96 L Glucose 314 H Lactate 2.7 H FiO2 21.0 Potassium 4.1 Carbon Dioxide 32 Anion Gap 15 BUN 26 H Creatinine 4.1 H Est GFR ( Amer) 18 Est GFR (Non-Af Amer) 15 POC Glucose (mg/dL) Random Glucose 299 H Calcium 8.4 Phosphorus 3.6 Magnesium 1.8 Total Bilirubin 1.3 AST 45 ALT 19 Alkaline Phosphatase 94 Troponin I 0.12 D NT-Pro-B Natriuret Pep 04948 H Total Protein 7.0 Albumin 3.0 Globulin 4.1 Albumin/Globulin Ratio 0.7 L Venous Blood Potassium 4.1 Hep Bs Antigen Hep Bs Antibody 01/16/18 01/16/18 01/16/18 04:25 17:30 17:30 WBC RBC Hgb Hct MCV MCH MCHC RDW Plt Count MPV Gran % Lymph % (Auto) Faulkner % (Auto) Eos % (Auto) Baso % (Auto) Gran # Lymph # (Auto) [place]ner # (Auto) Eos # (Auto) Baso # (Auto) pO2 59 H VBG pH 7.37 VBG pCO2 56.0 VBG HCO3 32.4 H VBG Total CO2 34.1 H VBG O2 Sat (Calc) 90.8 H VBG Base Excess 5.5 H VBG Potassium 4.1 Sodium 138.0 Chloride 101.0 Glucose 259 H Lactate 2.9 H FiO2 21.0 Potassium Carbon Dioxide Anion Gap BUN Creatinine Est GFR ( Amer) Est GFR (Non-Af Amer) POC Glucose (mg/dL) Random Glucose Calcium Phosphorus Magnesium Total Bilirubin AST ALT Alkaline Phosphatase Troponin I NT-Pro-B Natriuret Pep Total Protein Albumin Globulin Albumin/Globulin Ratio Venous Blood Potassium 4.1 Hep Bs Antigen Negative Hep Bs Antibody Positive 01/16/18 21:14 WBC RBC Hgb Hct MCV MCH MCHC RDW Plt Count MPV Gran % Lymph % (Auto) [place] % (Auto) Eos % (Auto) Baso % (Auto) Gran # Lymph # (Auto) [place]ulkner # (Auto) Eos # (Auto) Baso # (Auto) pO2 VBG pH VBG pCO2 VBG HCO3 VBG Total CO2 VBG O2 Sat (Calc) VBG Base Excess VBG Potassium Sodium Chloride Glucose Lactate FiO2 Potassium Carbon Dioxide Anion Gap BUN Creatinine Est GFR ( Amer) Est GFR (Non-Af Amer) POC Glucose (mg/dL) 262 H Random Glucose Calcium Phosphorus Magnesium Total Bilirubin AST ALT Alkaline Phosphatase Troponin I NT-Pro-B Natriuret Pep Total Protein Albumin Globulin Albumin/Globulin Ratio Venous Blood Potassium Hep Bs Antigen Hep Bs Antibody Attending/Attestation - Attestation I have personally seen and examined this patient.: Yes I have fully participated in the care of the patient.: Yes I have reviewed all pertinent clinical information: Yes Notes (Text): This is an addendum to GI consult report dictated by the Community Administrator.The patient was seen and evaluated earlier. Medical records, lab studies, imagings were reviewed. Last 24 hours events reviewed. Agreed with the above treatment plan as outlined in Community Administrator 's notes with the addition of the following This patient complain of frequent small amount of bowl movements and abdominal discomfort On examination abdomen softly distended mild tenderness of deep palpation CT scan was reviewed Followup stool for C.diff ?Start empiric therapy for PPI 01/16/18 23:47
[2018-01-16] MEDS: Bacitracin 500 Units/gm Oint Foilpak UD TOP SCH ×2 (11:32→17:45)
[2018-01-16] MEDS ORDERED: Iodixanol 320 MG/ML 100 ML BOTTLE IV ONE (12:33)
--- NOTE | 2018-01-16 13:36 | CT ---
Date of service: 01/16/2018 PROCEDURE: CT Abdomen and Pelvis without intravenous contrast HISTORY: Abd pain, diarrhea COMPARISON: None. TECHNIQUE: Without contrast.. Contrast dose: Radiation dose: Total exam DLP = 1387.26 mGy-cm. This CT exam was performed using one or more of the following dose reduction techniques: Automated exposure control, adjustment of the mA and/or kV according to patient size, and/or use of iterative reconstruction technique. FINDINGS: LOWER THORAX: Small left pleural effusion and consolidation at left lung base LIVER: Unremarkable. No gross lesion or ductal dilatation. GALLBLADDER AND BILE DUCTS: Gallbladder removed PANCREAS: Unremarkable. No gross lesion or ductal dilatation. SPLEEN: The splenic artery branches are heavily calcified. The spleen is normal in size ADRENALS: Unremarkable. No mass. KIDNEYS AND URETERS: Unremarkable. No hydronephrosis. No solid mass. VASCULATURE: Unremarkable. No aortic aneurysm. Extensive aortic calcification and calcification of multiple intra-abdominal vessels especially the spleen BOWEL: Unremarkable. No obstruction. No gross mural thickening. APPENDIX: Unremarkable. Normal appendix. PERITONEUM: Mild ascites LYMPH NODES: Unremarkable. No enlarged lymph nodes. BLADDER: Unremarkable. REPRODUCTIVE: Unremarkable. BONES: No acute fracture. OTHER FINDINGS: None. IMPRESSION: No acute intra-abdominal findings. No evidence of enteritis or colitis
[2018-01-16] MEDS: Budesonide 0.5 mg/2 ml Inhal Susp UD IH SCH ×2 (14:11→20:44)
--- NOTE | 2018-01-16 15:44 | CP.PCM.CON ---
History of Present Illness - History of Present Illness History of Present Illness: Airam Hamm, PGY-1, Surgery Consult Note for Dr. Urrutia HPI: 52 year old male with past medical history of DM II, CHF, HTN, BPH, CVA, anemia, ESRD on HD (Monday, , Monday), Neuropathy presents with 8-10 episodes of black diarrhea for the past week and diffuse crampy abdominal pain. Patient reports no nausea, vomiting, dysphagia, and subjective fever. He reports no recent travel history and has recently taken vancomycin. Patient also reports 1 week history of pain at base of left 3rd finger. He reports that the area feels warm and looks more red, but reports no discharge. He recently had an amputation of the left third finger at [facility] about 3 weeks ago. Patient also has a history of right foot amputation done in October 2017, but has no symptoms from the right foot. He also complains of shortness of breath attributed to lifelong astham that has been longstanding and takes nebulizer treatments at home for relief. He is not on home oxygen. Patient denies headache, dizziness, chest pain, dysuria, hematuria. 12- point ROS was negative except for what was mentioned above. PMH: as stated above PSH: L AV fistula, cholecystectomy, R BKA in October 2017, L cornea transplant, pacemaker insertion, left third finger amputation 3 weeks ago Allergies: PCN, avalox, novalox, insulin, moxifloxacin Social History: denies tobacco and drug use. Patient used to drink occassionaly 20 years ago. Family history: Mother: 83 and and alive with CAD and DM II. Father: in 60s from natural causes PMD: Dr. Diallo Review of Systems - Constitutional Constitutional: Chills, Fever (subjective). absent: Anorexia - EENT Eyes: absent: Blurred Vision Ears: absent: Decreased Hearing Nose/Mouth/Throat: absent: Dysphagia - Cardiovascular Cardiovascular: Dyspnea, Dyspnea on Exertion - Respiratory Respiratory: Dyspnea, Dyspnea on Exertion, Wheezing. absent: Cough - Gastrointestinal Gastrointestinal: Abdominal Pain, Diarrhea. absent: Constipation, Nausea, Vomiting - Genitourinary Genitourinary: absent: Dysuria, Hematuria - Neurological Neurological: absent: Numbness, Tingling, Tremor Past Patient History - Infectious Disease Hx of Infectious Diseases: None - Tetanus Immunizations Tetanus Immunization: Up to Date - Past Medical History & Family History Past Medical History?: Yes - Past Social History Smoking Status: Never Smoked - CARDIAC Hx Cardiac Disorders: Yes (mi) Hx Congestive Heart Failure: Yes Hx Hypertension: Yes - PULMONARY Hx Chronic Obstructive Pulmonary Disease (COPD): Yes - NEUROLOGICAL HX Cerebrovascular Accident: Yes - HEENT Hx HEENT Problems: Yes Hx Blind: No Hx Cataracts: Yes Hx Deafness: No Hx Difficulty Chewing: No - RENAL Hx Renal Failure: Yes - ENDOCRINE/METABOLIC Hx Diabetes Mellitus Type 1: Yes Hx Hypothyroidism: Yes - HEMATOLOGICAL/ONCOLOGICAL Hx AIDS: No Hx Anemia: Yes Hx Blood Transfusions: Yes Hx Blood Transfusion Reaction: No - INTEGUMENTARY Hx Dermatological Problems: No - MUSCULOSKELETAL/RHEUMATOLOGICAL Hx Arthritis: Yes - GASTROINTESTINAL Hx Gastrointestinal Disorders: Yes Hx Colostomy: No Hx Liver Failure: Yes Hx Pancreatitis: Yes - GENITOURINARY/GYNECOLOGICAL Hx Genitourinary Disorders: Yes Hx Hematuria: Yes - PSYCHIATRIC Hx Psychophysiologic Disorder: Yes Hx Anxiety: Yes Hx Substance Use: No - SURGICAL HISTORY Hx Amputation: Yes Hx Cardiac Catheterization: Yes Hx Cholecystectomy: Yes Hx Coronary Stent: Yes Hx Musculoskeletal Surgery: Yes - ANESTHESIA Hx Anesthesia: Yes Hx Anesthesia Reactions: No Hx Malignant Hyperthermia: No Meds Allergies/Adverse Reactions: Allergies Allergy/AdvReac Type Severity Reaction Status Date / Time insulin aspart [From Novolog] Allergy Intermediate RASH Verified 01/15/18 23:49 moxifloxacin Allergy Intermediate RASH Verified 01/15/18 23:49 Penicillins Allergy Intermediate RASH Verified 01/15/18 23:49 insulin regular Allergy ITCHING Verified 01/15/18 23:49 [From Novolin R Regular U-100 Insuln] - Medications Medications: Current Medications Albuterol/Ipratropium (Duoneb 3 Mg/0.5 Mg (3 Ml) Ud) 3 ml IH [id number] PRN PRN Reason: Shortness of Breath Arformoterol Tartrate (Brovana) 15 mcg IH [id number] [facility] Aspirin (Ecotrin) 81 mg PO DAILY [facility] Atorvastatin Calcium (Lipitor) 80 mg PO HS [facility] Bacitracin (Bacitracin) 1 ea TOP BID CARLOS Last Admin: 01/16/18 11:32 Dose: Not Given Budesonide (Pulmicort Respules) 0.5 mg IH Q12H [facility] Last Admin: 01/16/18 14:11 Dose: Not Given Fenofibrate (Tricor) 145 mg PO DAILY [facility] Fluticasone Propionate (Flonase) 1 actuation NS DAILY PRN PRN Reason: Nasal congestion Guaifenesin (Mucinex La) 600 mg PO BID PRN PRN Reason: Cough Insulin Human Regular (Humulin R) 2 units SC AC [facility] Latanoprost (Xalatan Opht) 0 ml OU HS [facility] Levothyroxine Sodium (Synthroid) 25 mcg PO 0600 [facility] Metoprolol Tartrate (Lopressor) 25 mg PO BID [facility] Last Admin: 01/16/18 11:32 Dose: Not Given Oxycodone/Acetaminophen (Percocet 10/325 Mg Tab) 1 tab PO Q6H PRN PRN Reason: Pain, moderate (4-7) Pregabalin (Lyrica) 50 mg PO HS [facility] Sodium Chloride ([place] Nasal [place]) 0 ml NS Q2 PRN PRN Reason: nasal congestion. Ticagrelor (Brilinta) 90 mg PO BID [facility] Last Admin: 01/16/18 11:31 Dose: Not Given Physical Exam - Constitutional Appears: Well, Non-toxic, No Acute Distress - Head Exam Head Exam: ATRAUMATIC, NORMAL INSPECTION, NORMOCEPHALIC - Eye Exam Eye Exam: EOMI Pupil Exam: PERRL - ENT Exam ENT Exam: Mucous Membranes Moist - Respiratory Exam Respiratory Exam: Wheezes (diffuse), NORMAL BREATHING PATTERN - Cardiovascular Exam Cardiovascular Exam: REGULAR RHYTHM - GI/Abdominal Exam GI & Abdominal Exam: Soft, Tenderness - Extremities Exam Extremities exam: Positive for: full ROM Additional comments: Right foot amputation: wound on anterior portion of stump has dark skin but malodorous. no erythema around wound site Left 3rd finger amputation: darkened skin with multiple stitches in place - Neurological Exam Neurological exam: Alert, CN II-XII Intact, Oriented x3 Results - Vital Signs Recent Vital Signs: Last Vital Signs Temp 99 F 01/16/18 12:00 Pulse 62 01/16/18 12:00 Resp 18 01/16/18 12:00 BP 100/52 L 01/16/18 12:00 Pulse Ox 98 01/16/18 03:45 - Labs Result Diagrams: 01/16/18 01:05 01/16/18 01:05 Labs: Laboratory Results - last 24 hr 10/30/18 10/30/18 10/30/18 01:05 01:05 01:05 WBC 8.6 RBC 3.06 L Hgb 9.5 L Hct 29.3 L MCV 95.8 MCH 31.0 MCHC 32.4 RDW 18.2 H Plt Count 105 L MPV 13.4 H Gran % 82.0 H Lymph % (Auto) 7.6 L Clark % (Auto) 9.1 H Eos % (Auto) 1.2 L Baso % (Auto) 0.1 Gran # 7.04 H Lymph # (Auto) 0.7 L Clark # (Auto) 0.8 H Eos # (Auto) 0.1 Baso # (Auto) 0.01 pO2 27 L VBG pH 7.39 VBG pCO2 56.0 VBG HCO3 33.9 H VBG Total CO2 35.6 H VBG O2 Sat (Calc) 45.6 VBG Base Excess 7.1 H VBG Potassium 4.1 Sodium 137.0 138 Chloride 99.0 96 L Glucose 314 H Lactate 2.7 H FiO2 21.0 Potassium 4.1 Carbon Dioxide 32 Anion Gap 15 BUN 26 H Creatinine 4.1 H Est GFR ( Amer) 18 Est GFR (Non-Af Amer) 15 Random Glucose 299 H Calcium 8.4 Phosphorus 3.6 Magnesium 1.8 Total Bilirubin 1.3 AST 45 ALT 19 Alkaline Phosphatase 94 Troponin I 0.12 D NT-Pro-B Natriuret Pep 19470 H Total Protein 7.0 Albumin 3.0 Globulin 4.1 Albumin/Globulin Ratio 0.7 L Venous Blood Potassium 4.1 01/16/18 04:25 WBC RBC Hgb Hct MCV MCH MCHC RDW Plt Count MPV Gran % Lymph % (Auto) Clark % (Auto) Eos % (Auto) Baso % (Auto) Gran # Lymph # (Auto) Clark # (Auto) Eos # (Auto) Baso # (Auto) pO2 59 H VBG pH 7.37 VBG pCO2 56.0 VBG HCO3 32.4 H VBG Total CO2 34.1 H VBG O2 Sat (Calc) 90.8 H VBG Base Excess 5.5 H VBG Potassium 4.1 Sodium 138.0 Chloride 101.0 Glucose 259 H Lactate 2.9 H FiO2 21.0 Potassium Carbon Dioxide Anion Gap BUN Creatinine Est GFR ( Amer) Est GFR (Non-Af Amer) Random Glucose Calcium Phosphorus Magnesium Total Bilirubin AST ALT Alkaline Phosphatase Troponin I NT-Pro-B Natriuret Pep Total Protein Albumin Globulin Albumin/Globulin Ratio Venous Blood Potassium 4.1 Assessment & Plan - Assessment and Plan (Free Text) Assessment: 52 year old male with past medical history of DM II, CHF, HTN, BPH, CVA, anemia, ESRD on HD (Monday, , Monday), Neuropathy presents with 8-10 episodes of black diarrhea for the past week and diffuse crampy abdominal pain. Patient also reports 1 week history of pain at base of left 3rd finger. Plan: Start santyl, bacitracin for both right foot stump wound and left 3rd finger wound. Wound culture of right foot stump ordered. Wound care consult ordered. DVT prophylaxis with heparin. GI prophylaxis with pepcid Replete electrolytes as needed. Will discuss case with Dr. Urrutia. - Date & Time Date: 01/16/18 Time: 16:06
--- NOTE | 2018-01-16 15:57 | CARD ---
APPROVED REPORT Date of service: 01/16/2018 EKG Measurement Heart [id number] <Conclusion> Dual chamber pacemaker Abnormal ECG
[2018-01-16] MEDS: Insulin Regular 1 UNITS/0.01 ML ML SC SCH ×2 (17:21→17:45)
[2018-01-16] MEDS: Oxycodone/Acetaminophen 10/325 mg Tab PO PRN (17:44)
[2018-01-16] MEDS: Collagenase 250 Units/gm Ointment(30 gm) TOP SCH (17:45)
[2018-01-16] MEDS: Insulin Reg-MEDIUM-Coverage SC SCH ×2 (17:45→22:38)
[2018-01-16] MEDS ORDERED: Arformoterol 15 mcg/2 ml Inh Sol IH SCH (20:00)
[2018-01-16] MEDS: Arformoterol 15 mcg/2 ml Inh Sol IH SCH (20:43)
[2018-01-16] MEDS ORDERED: BIMATOPROST OU SCH (22:00)
[2018-01-16] MEDS: Latanoprost 2.5 ml Opht Soln OU SCH (22:04)
[2018-01-17] MEDS: Oxycodone/Acetaminophen 10/325 mg Tab PO PRN ×2 (00:28→08:25)
--- NOTE | 2018-01-17 05:17 | CON ---
DATE: 01/16/2018 HISTORY OF PRESENT ILLNESS: This is a 52 years old gentleman well known to me due to multiple medical issues including chronic obstructive lung disease, obstructive sleep apnea syndrome, does not have a CPAP/BIPAP, has known complaints of coronary artery disease; obstructive lung disease; renal failure, dialysis dependent; diabetes; cardiac arrhythmia, requiring pacemaker; peripheral vascular disease, status post right BKA; also had recently finger amputated, admitted with vomiting, diarrhea seen by me while in dialysis, crying with the pain, has a severely compromised flow of upper and lower extremity. No hemoptysis. No hematemesis. No hematuria. Diarrhea reported. PAST MEDICAL HISTORY: As per history of present illness. ALLERGIES: ASPART AND REGULAR INSULIN. ALSO ALLERGIC TO PENICILLIN AND MOXIFLOXACIN. SOCIAL HISTORY: Denies any active smoking or alcohol. FAMILY HISTORY: Positive for hypertension, diabetes, and renal failure. MEDICATIONS: He is on bacitracin ointment to the affected area twice a day, Brilinta 90 mg twice a day, Brovana inhaled twice a day, also on Duoneb q.6 hours p.r.n., Ecotrin 81 mg daily, Flonase one spray each nostril daily, heparin 5000 subcu q.12 hour, insulin coverage, Lipitor 80 mg daily,metoprolol tartrate 25 mg twice a day, Lyrica 50 mg at bedtime, Mucinex LA 600 mg twice a day, Pepcid 20 mg , Percocet 10/325 one tab q. 6 hours p.r.n., budesonide inhaled twice a day, Synthroid 25 mcg daily, and Tricor 145 mg daily. REVIEW OF SYSTEMS: No headache, no rhinitis. No cough or shortness of breath. Minimal exertion. No chest pain. Has been having loose bowel movement. No abdominal pain. Does have extremity pain and feeling of cold. PHYSICAL EXAMINATION GENERAL: No acute distress. VITAL SIGNS: Temp is 99, heart rate 66, respiratory rate 18, blood pressure 100/52, pulse ox 98% on nasal cannula. HEENT: Moist mucous membranes. Crowded airway. Mallampati score is 4. NECK: Supple. No JVD. LUNGS: Have fair airflow with few rhonchi. HEART: S1 and S2. ABDOMEN: Soft and nontender. No organomegaly. EXTREMITIES: There is no much edema. There is a right BKA. NEUROLOGIC: Awake and alert. Follows simple command. LABORATORY DATA: Shows hemoglobin 9.5, hematocrit 29.3, WBC 8.6, and platelets is 105. ABG showed pH of 7.37, pCO2 of 56, and O2 of 59. Sodium 138, potassium 4.1, chloride 96, bicarbonate 32, BUN 26, creatinine 4.1, glucose 262, calcium 8.4, phosphorus 3.6, magnesium 1.8, AST 45, ALT 19, and alk phos is 94. ProBNP is 77,600, and albumin 3.0. Microbiology; stool for C. diff is negative. He has a CAT scan of abdomen and pelvis done, which is unremarkable for any acute finding. Chest x-ray was negative for infiltrate. IMPRESSION AND PLAN: Chronic obstructive lung disease; obstructive sleep apnea syndrome; coronary artery disease; cardiac arrhythmia, requiring pacemaker; gastroparesis, probably of gastrointestinal dysfunction secondary to longstanding diabetes with diarrhea; renal failure, dialysis dependent; peripheral vascular disease, requiring right BKA, also requiring amputation of the finger, still has seemed like a Raynaud's type of phenomena; ADL dysfunction. I agree with Dr. Potter with the present management. Continue pain management for now, bronchodilator. We will place him on CPAP 7 cm with 35% oxygen while sleeping. May benefit vasodilator such as a small dose of Norvasc. Thank you and we will follow with you. Jarred Escalera MD
[2018-01-17] MEDS ORDERED: Levothyroxine 25 MCG TAB PO SCH (06:00)
[2018-01-17 06:51] LABS: ALB/GLOB RATIO 0.7 (1.1-1.8); ALBUMIN 2.9 g/dL (3.0-4.8); ALT/SGPT 21 U/L (7-56); AST/SGOT 37 U/L (17-59); BLOOD UREA NITROGEN 42 mg/dL (7-21); CALCIUM 8.7 mg/dL (8.4-10.5); GFR NON-AFRICAN AMERICAN 12; HDL CHOLESTEROL 8 mg/dL (29-60)
[2018-01-17 07:20] LABS: BASO # 0.02 K/mm3 (0.0-2.0); BASO % 0.2 % (0.0-3.0); EOS # 0.1 (0.0-0.7); EOS % 0.5 % (1.5-5.0); GRAN # 8.84 (1.4-6.5); GRAN % 80.3 % (50.0-68.0); HEMOGLOBIN 8.4 g/dL (14.0-18.0); LYMPH % 8.9 % (22.0-35.0); MEAN CELL VOLUME 96.3 fl (80.0-105.0); MEAN CORPUSCULAR HEMOGLOBIN 30.9 pg (25.0-35.0); MEAN CORPUSCULAR HGB CONC 32.1 g/dl (31.0-37.0); MEAN PLATELET VOLUME 13.2 fl (7.0-11.0); MONO # 1.1 (0.1-0.6); MONO % 10.1 % (1.0-6.0); RBC 2.72 10^6/uL (3.5-6.1); RED CELL DISTRIBUTION WIDTH 17.9 % (11.5-14.5)
[2018-01-17 07:30] LABS: LDL CHOLESTEROL < 30 mg/dL (0-129)
--- NOTE | 2018-01-17 07:51 | CON ---
DATE: 01/16/2018 CONSULT SERVICE: Cardiology. REASON FOR CONSULTATION: Follow up coronary artery disease with complaints of chest pain, initially admitted with abdominal pain and diarrhea. BRIEF CLINICAL HISTORY: This is a 52-year-old with past medical history significant for a very brittle diabetes; hypertension; hyperlipidemia; coronary artery disease, status post stent; severe PAD, status post right BKA; sick sinus syndrome, status post permanent pacemaker; history of cholecystectomy with complaints of diarrhea for the last week, who came to the emergency room. The patient also complained of chest pain and coughing on changing the posture. No chest pain or heaviness in the chest at rest. PAST MEDICAL HISTORY: Significant for end-stage renal disease, on dialysis; diabetes; hypertension; hyperlipidemia; diabetic neuropathy, diabetic retinopathy, nephropathy, full blown complication with diabetes; history of PAD, status post right BKA. History of calcification of aortic and mitral valve; at one point thought to be endocarditis, but repeat LASHAWN done had no significant change from previous echo; medical treatment recommended. As mentioned, past history significant for end-stage renal disease, on dialysis Monday, Monday and Monday; history of pacemaker secondary to sick sinus syndrome after syncope and bradycardia. Previous cardiac workup as follows: The patient has history of PTCA of LAD on 06/12/2017, found to be resistant to Plavix, treated with Brilinta; history of CVA; history of intracerebral bleed; history of resistance to Plavix; history of junctional bradycardia, near syncope during the dialysis; and history of pacemaker. History of two drug-eluting stents, most recently on 06/12/2017 in L[place], where after the FFR, was found to be in significant stenosis of LAD. Prior to that, the patient had a stent in LAD as well. History of pacemaker, 06/27/2017. Last echo 10/20/2017 was a LASHAWN done to rule out any vegetation because the patient had a positive blood culture and fungemia; and it was told in [facility], the patient had endocarditis, so he was brought here and did found to be in echogenic structure, mobile, attached to the right coronary cusp, 0.5 x 7 cm, consistent with calcification. When reviewed 2 to 3 years back echo, the same consistency noted, so endocarditis ruled out. History of severe mitral regurgitation, RV systolic pressure 98, preserved LV function, ejection fraction 55% to 60%, [id number] aortic regurgitation, mild mitral regurgitation. PAST SURGICAL HISTORY: Significant for recent amputation of right middle finger, history of amputation of right BKA, history of gallbladder surgery, history of craniotomy, history of intracerebral bleed and CVA. History of resistance to Plavix, and the patient was on Brilinta. SOCIAL HISTORY: history of alcohol abuse. CURRENT MEDICATIONS: The patient is taking guaifenesin, Brilinta, Flomax, Renagel, multivitamin, and metoprolol. REVIEW OF SYSTEMS: As per HPI. ALLERGIES: To INSULIN, PENICILLIN, and NOVOLOG. PHYSICAL EXAMINATION: GENERAL: Height of the patient is 5 feet and 6 inches, weight of the patient is 202 pounds, and body mass index 33 kg per meter square. VITAL SIGNS: Temperature is afebrile, heart rate 62, blood pressure 100/52. HEENT: PERRLA. Extraocular muscles are intact. NECK: Supple. No carotid bruit or thyromegaly. CHEST: Clear to auscultation. HEART: S1 and S2, regular. ABDOMEN: Soft. EXTREMITIES: Clubbing and cyanosis negative. LABORATORY DATA: WBC is 8.6, hemoglobin 9.9, hematocrit 29.3, platelet count 105. Chemistry shows sodium 130, potassium 4, chloride 96, carbon dioxide 32, anion gap of 15, BUN 26, creatinine 4.1. IMPRESSION: A 52-year-old male with past medical history significant for diabetes; end-stage renal disease, on dialysis Monday, Monday, and Monday; full blown complication of diabetes, including diabetic retinopathy, nephropathy, neuropathy; sick sinus syndrome, status post permanent pacemaker on 07/21/2017; history of recent coronary intervention, two stents in LAD after FFR was positive in May 2017; however, the patient had intracerebral bleed, Brilinta was held and interrupted for intracerebral bleed and later on restarted; history of severe PAD, gangrene of the toe, status post metatarsal amputation, and later on followed by right BKA; history of osteomyelitis of the left middle finger, status post amputation, admitted with diarrhea. Recent echo shows [id number] aortic regurgitation, mitral regurgitation, and tricuspid regurgitation, preserved LV function. No evidence of endocarditis. RECOMMENDATIONS: Continue baby aspirin. Continue Brilinta as tolerated. We will continue for one year, if the patient is tolerating because of the high risk and very brittle diabetes and multiple stenting before. But if the patient cannot tolerate this, we can hold the Brilinta more than six months. Continue baby aspirin indefinitely. Continue insulin. Continue beta-valerie. GI workup for diarrhea. We will follow with you. Thank you for providing us the opportunity in taking care of the patient, Jason Berger. We will follow with you. Jarred Erickson MD
[2018-01-17] MEDS: Budesonide 0.5 mg/2 ml Inhal Susp UD IH SCH ×2 (08:13→20:16)
[2018-01-17] MEDS: Arformoterol 15 mcg/2 ml Inh Sol IH SCH ×2 (08:13→20:15)
[2018-01-17] MEDS: Insulin Regular 1 UNITS/0.01 ML ML SC SCH ×3 (08:26→18:39)
[2018-01-17] MEDS: Insulin Reg-MEDIUM-Coverage SC SCH ×4 (08:26→23:29)
--- NOTE | 2018-01-17 08:53 | CP.PCM.PN ---
<Kuldip Nur - Last Filed: 01/17/18 10:15> Subjective - Date & Time of Evaluation Date of Evaluation: 01/17/18 Time of Evaluation: 08:48 - Subjective Subjective: PGY-2 GI progess note for Dr Ahn Patient had a temp of 100.3 overnight. Patient is a poor historian answers questions intermittently. Stated he had pain in his abdomen yesterday but today the pain was milder but still present. Denied emesis. Denied diarrhea overnight. Objective - Vital Signs/Intake and Output Vital Signs (last 24 hours): Temp Pulse Resp BP Pulse Ox 98.0 F 72 20 92/50 L 97 01/17/18 06:00 01/17/18 06:00 01/17/18 06:00 01/17/18 06:00 01/17/18 06:00 Intake and Output: 01/17/18 01/17/18 06:59 18:59 Intake Total 800 Output Total 0 Balance 800 - Medications Medications: Current Medications Albuterol/Ipratropium (Duoneb 3 Mg/0.5 Mg (3 Ml) Ud) 3 ml IH [id number] PRN PRN Reason: Shortness of Breath Arformoterol Tartrate (Brovana) 15 mcg IH [id number] [facility] Last Admin: 01/17/18 08:13 Dose: 15 mcg Aspirin (Ecotrin) 81 mg PO DAILY [facility] Last Admin: 01/16/18 17:44 Dose: 81 mg Atorvastatin Calcium (Lipitor) 80 mg PO HS [facility] Last Admin: 01/16/18 22:03 Dose: 80 mg Bacitracin (Bacitracin) 1 ea TOP BID [facility] Last Admin: 01/16/18 17:45 Dose: 1 ea Budesonide (Pulmicort Respules) 0.5 mg IH Q12H [facility] Last Admin: 01/17/18 08:13 Dose: 0.5 mg Collagenase (Santyl) 1 gm TOP DAILY [facility] Last Admin: 01/16/18 17:45 Dose: Not Given Famotidine (Pepcid) 20 mg PO HS [facility] Last Admin: 01/16/18 22:03 Dose: 20 mg Fenofibrate (Tricor) 145 mg PO DAILY [facility] Last Admin: 01/16/18 17:44 Dose: 145 mg Fluticasone Propionate (Flonase) 1 actuation NS DAILY PRN PRN Reason: Nasal congestion Guaifenesin (Mucinex La) 600 mg PO BID PRN PRN Reason: Cough Heparin Sodium (Porcine) (Heparin) 5,000 units SC Q12 [facility]; Protocol Last Admin: 01/16/18 22:03 Dose: 5,000 units Insulin Human Regular (Humulin R) 2 units SC AC [facility] Last Admin: 01/17/18 08:26 Dose: 2 units Insulin Human Regular (Humulin R Med) 0 units SC ACHS [facility]; Protocol Last Admin: 01/17/18 08:26 Dose: 1 units Latanoprost (Xalatan Opht) 0 ml OU HS [facility] Last Admin: 01/16/18 22:04 Dose: 2.5 ml Levothyroxine Sodium (Synthroid) 25 mcg PO 0600 [facility] Last Admin: 01/17/18 06:04 Dose: 25 mcg Metoprolol Tartrate (Lopressor) 25 mg PO BID [facility] Last Admin: 01/16/18 17:45 Dose: 25 mg Oxycodone/Acetaminophen (Percocet 10/325 Mg Tab) 1 tab PO Q6H PRN PRN Reason: Pain, moderate (4-7) Last Admin: 01/17/18 08:25 Dose: 1 tab Pregabalin (Lyrica) 50 mg PO HS [facility] Last Admin: 01/16/18 22:03 Dose: 50 mg Sodium Chloride ([place] Nasal [place]) 0 ml NS Q2 PRN PRN Reason: nasal congestion. Ticagrelor (Brilinta) 90 mg PO BID [facility] Last Admin: 01/16/18 17:44 Dose: 90 mg - Labs Labs: 01/17/18 06:15 01/17/18 06:15 - Additional Findings Additional findings: - Constitutional Appears: Non-toxic, No Acute Distress, Older Than Stated Age, Chronically Ill - Head Exam Head Exam: ATRAUMATIC, NORMOCEPHALIC - Eye Exam Eye Exam: EOMI, Normal appearance, PERRL - ENT Exam ENT Exam: Mucous Membranes Moist - Respiratory Exam Respiratory Exam: Clear to Auscultation Bilateral, NORMAL BREATHING PATTERN. absent: Rales, Rhonchi, Wheezes - Cardiovascular Exam Cardiovascular Exam: REGULAR RHYTHM, +S1, +S2. absent: Gallop, Rubs, Systolic Murmur - GI/Abdominal Exam GI & Abdominal Exam: Normal Bowel Sounds, Soft. absent: Distended, Firm, Guarding, Rebound, Rigid, Tenderness - Extremities Exam Extremities exam: Positive for: full ROM Additional comments: S/p R BKA, dressing site c/d/i; L middle finger necrotic down to PIP, no abnormal drainage noted, painful with movement - Neurological Exam Neurological exam: Alert, CN II-XII Intact, Oriented x3 - Psychiatric Exam Psychiatric exam: Normal Affect, Normal Mood - Skin Skin Exam: Dry, Intact, Warm Assessment and Plan - Assessment and Plan (Free Text) Plan: 52 y/o Male w/ PMHx of CHF, HTN, BPH, CVA, DM2, anemia, ESRD on HD (T, Th, Sat), Neuropathy and recent R BKA with a PSHx of R BKA, cornea transplant, chol ecystectomy presenting to the emergency department complaining of severe diarrhea intermittent for the past 2 weeks, associated with diffuse abdominal pain: Diarrhea -possibly cdiff induced as patient was on abx meropenem and vanco for approx 12 days for recent inpatient admission for finger necrosis, patient was then discharged on vanco iv (infused with dialysis) which was continued for an additional 2 weeks -currently afebrile, no white count -cdiff toxin and antigen negative -f/u vre screen -CT abd/pelvis po contrast 01/16: * Small left pleural effusion and consolidation at left lung base. Mild ascites. No acute intra-abdominal findings. No evidence of enteritis or colitis -flagyl po 250mg q6h for 7 days Seen and discussed with Dr Ahn. <Jacquelin Ahn V - Last Filed: 01/18/18 01:20> Objective - Vital Signs/Intake and Output Vital Signs (last 24 hours): Temp Pulse Resp BP Pulse Ox 98.1 F 70 18 90/47 L 97 01/17/18 17:27 01/17/18 18:00 01/17/18 17:27 01/17/18 17:27 01/17/18 06:00 Intake and Output: 01/17/18 01/18/18 18:59 06:59 Intake Total 120 Balance 120 - Medications Medications: Current Medications Albuterol/Ipratropium (Duoneb 3 Mg/0.5 Mg (3 Ml) Ud) 3 ml IH [id number] PRN PRN Reason: Shortness of Breath Arformoterol Tartrate (Brovana) 15 mcg IH [id number] [facility] Last Admin: 01/17/18 20:15 Dose: 15 mcg Aspirin (Ecotrin) 81 mg PO DAILY [facility] Last Admin: 01/17/18 19:08 Dose: 81 mg Atorvastatin Calcium (Lipitor) 80 mg PO HS [facility] Last Admin: 01/17/18 22:53 Dose: 80 mg Bacitracin (Bacitracin) 1 ea TOP BID [facility] Last Admin: 01/17/18 18:39 Dose: Not Given Budesonide (Pulmicort Respules) 0.5 mg IH Q12H [facility] Last Admin: 01/17/18 20:16 Dose: 0.5 mg Collagenase (Santyl) 1 gm TOP DAILY [facility] Last Admin: 01/17/18 09:46 Dose: 1 units Famotidine (Pepcid) 20 mg PO HS [facility] Last Admin: 01/17/18 22:53 Dose: 20 mg Fenofibrate (Tricor) 145 mg PO DAILY [facility] Last Admin: 01/17/18 19:10 Dose: 145 mg Fluticasone Propionate (Flonase) 1 actuation NS DAILY PRN PRN Reason: Nasal congestion Guaifenesin (Mucinex La) 600 mg PO BID PRN PRN Reason: Cough Heparin Sodium (Porcine) (Heparin) 5,000 units SC Q12 [facility]; Protocol Last Admin: 01/17/18 22:53 Dose: 5,000 units Hydrocortisone Sodium Succinate (Solu-Cortef) 100 mg IVP Q8 [facility] Last Admin: 01/17/18 22:52 Dose: 100 mg Aztreonam 500 mg/ Sodium (Chloride) 100 mls @ 100 mls/hr IVPB Q8 [facility]; Protocol Stop: 01/18/18 06:59 Last Admin: 01/17/18 22:51 Dose: 100 mls/hr Insulin Human Regular (Humulin R) 2 units SC AC [facility] Last Admin: 01/17/18 18:39 Dose: Not Given Insulin Human Regular (Humulin R Med) 0 units SC ACHS [facility]; Protocol Last Admin: 01/17/18 23:29 Dose: Not Given Latanoprost (Xalatan Opht) 0 ml OU HS [facility] Last Admin: 01/17/18 22:52 Dose: 2.5 ml Levothyroxine Sodium (Synthroid) 50 mcg PO 0600 [facility] Metoprolol Tartrate (Lopressor) 25 mg PO BID [facility] Last Admin: 01/16/18 17:45 Dose: 25 mg Metronidazole (Flagyl) 250 mg PO Q6H [facility]; Protocol Stop: 01/24/18 10:16 Last Admin: 01/17/18 23:15 Dose: 250 mg Pregabalin (Lyrica) 50 mg PO HS [facility] Last Admin: 01/17/18 22:53 Dose: 50 mg Sodium Chloride ([place] Nasal [place]) 0 ml NS Q2 PRN PRN Reason: nasal congestion. Ticagrelor (Brilinta) 90 mg PO BID [facility] Last Admin: 01/17/18 18:58 Dose: 90 mg - Labs Labs: 01/17/18 16:15 01/17/18 16:15 Attending/Attestation - Attestation I have personally seen and examined this patient.: Yes I have fully participated in the care of the patient.: Yes I have reviewed all pertinent clinical information, including history, physical exam and plan: Yes
[2018-01-17] MEDS: Bacitracin 500 Units/gm Oint Foilpak UD TOP SCH ×2 (09:30→18:39)
[2018-01-17] MEDS: Collagenase 250 Units/gm Ointment(30 gm) TOP SCH (09:46)
[2018-01-17] MEDS ORDERED: Oxycodone/Acetaminophen 10/325 mg Tab PO PRN (09:49)
--- NOTE | 2018-01-17 10:00 | CP.PCM.PN ---
<Marciano Palma - Last Filed: 01/17/18 14:00> Subjective - Date & Time of Evaluation Date of Evaluation: 01/17/18 Time of Evaluation: 07:00 - Subjective Subjective: Marciano Palma PGY 2 IM progress note for Dr. Potter Patient was seen and examined at bedside. He is drowsy but arousable. He states that he has not had any episodes of diarrhea overnight. There were no acute overnight events. Respirations were difficult but patient is in no acute distress on RA. C. difficile AG/toxin were negative and VRE culture is also negative. Labs and chart were reviewed. Due to missed full HD sessions last week, and noncompliance, the patient will be scheduled for an extra HD session today. Patient was started on Flagyl by GI team. Nursing notes were reviewed. Objective - Vital Signs/Intake and Output Vital Signs (last 24 hours): Temp Pulse Resp BP Pulse Ox 98.0 F 72 20 92/50 L 97 01/17/18 06:00 01/17/18 06:00 01/17/18 06:00 01/17/18 06:00 01/17/18 06:00 Intake and Output: 01/17/18 01/17/18 06:59 18:59 Intake Total 800 Output Total 0 Balance 800 - Medications Medications: Current Medications Albuterol/Ipratropium (Duoneb 3 Mg/0.5 Mg (3 Ml) Ud) 3 ml IH [id number] PRN PRN Reason: Shortness of Breath Arformoterol Tartrate (Brovana) 15 mcg IH [id number] [facility] Last Admin: 01/17/18 08:13 Dose: 15 mcg Aspirin (Ecotrin) 81 mg PO DAILY [facility] Last Admin: 01/16/18 17:44 Dose: 81 mg Atorvastatin Calcium (Lipitor) 80 mg PO HS [facility] Last Admin: 01/16/18 22:03 Dose: 80 mg Bacitracin (Bacitracin) 1 ea TOP BID [facility] Last Admin: 01/17/18 09:30 Dose: 1 ea Budesonide (Pulmicort Respules) 0.5 mg IH Q12H [facility] Last Admin: 01/17/18 08:13 Dose: 0.5 mg Collagenase (Santyl) 1 gm TOP DAILY [facility] Last Admin: 01/17/18 09:46 Dose: 1 units Famotidine (Pepcid) 20 mg PO HS [facility] Last Admin: 01/16/18 22:03 Dose: 20 mg Fenofibrate (Tricor) 145 mg PO DAILY [facility] Last Admin: 01/16/18 17:44 Dose: 145 mg Fluticasone Propionate (Flonase) 1 actuation NS DAILY PRN PRN Reason: Nasal congestion Guaifenesin (Mucinex La) 600 mg PO BID PRN PRN Reason: Cough Heparin Sodium (Porcine) (Heparin) 5,000 units SC Q12 [facility]; Protocol Last Admin: 01/17/18 09:45 Dose: Not Given Insulin Human Regular (Humulin R) 2 units SC AC [facility] Last Admin: 01/17/18 08:26 Dose: 2 units Insulin Human Regular (Humulin R Med) 0 units SC ACHS [facility]; Protocol Last Admin: 01/17/18 08:26 Dose: 1 units Latanoprost (Xalatan Opht) 0 ml OU HS [facility] Last Admin: 01/16/18 22:04 Dose: 2.5 ml Levothyroxine Sodium (Synthroid) 50 mcg PO 0600 [facility] Metoprolol Tartrate (Lopressor) 25 mg PO BID [facility] Last Admin: 01/16/18 17:45 Dose: 25 mg Oxycodone/Acetaminophen (Percocet 10/325 Mg Tab) 1 tab PO Q8H PRN PRN Reason: Pain, moderate (4-7) Pregabalin (Lyrica) 50 mg PO HS [facility] Last Admin: 01/16/18 22:03 Dose: 50 mg Sodium Chloride ([place] Nasal [place]) 0 ml NS Q2 PRN PRN Reason: nasal congestion. Ticagrelor (Brilinta) 90 mg PO BID [facility] Last Admin: 01/17/18 09:45 Dose: Not Given - Labs Labs: 01/17/18 06:15 01/17/18 06:15 - Constitutional Appears: Well, Non-toxic, No Acute Distress - Head Exam Head Exam: ATRAUMATIC, NORMAL INSPECTION - Eye Exam Eye Exam: Normal appearance - ENT Exam ENT Exam: Mucous Membranes Moist, Normal Exam - Neck Exam Neck Exam: Normal Inspection - Respiratory Exam Respiratory Exam: Prolonged Expiratory Phase, NORMAL BREATHING PATTERN. absent: Rhonchi, Wheezes, Respiratory Distress - Cardiovascular Exam Cardiovascular Exam: RRR, +S1, +S2 - GI/Abdominal Exam GI & Abdominal Exam: Soft. absent: Distended, Tenderness Additional comments: obese body habitus - Extremities Exam Extremities Exam: Full ROM Additional comments: LUE fistula L 3rd digit amputation R BKA - Back Exam Back Exam: NORMAL INSPECTION - Neurological Exam Neurological Exam: Alert, Awake - Psychiatric Exam Psychiatric exam: Normal Affect - Skin Skin Exam: Normal Color, Warm Assessment and Plan - Assessment and Plan (Free Text) Assessment: 52-year-old male with a PMH of ESRD on HD (TTS), CHF, CVA, DM 2, anemia, HTN, R BKA, left digit 3 amputation and neuropathy admitted for severe diarrhea and questionable melena. Diarrhea likely medication-induced per GI team despite negative cdiff result. Patient likely still in a state of fluid overload due to noncompliance with HD. Anemia is stable. ESRD on HD. Hypothyroidism noted. Plan: - Extra session of HD planned for today - Awaiting blood and wound cultures - Continue Santyl and bacitracin for wounds per surgery team - Continue Flagyl per GI team - Continue Brovana, Pulmicort, Flonase - Pulm consulted, recs appreciated - Cardio consulted, recs appreciated - Continue ASA and Tricor - Continue Synthroid - Continue Lyrica - Heparin for DVT PPX - Pepcid for GI PPX - Continue duonebs PRN - Percocet PRN - CPAP HS - Renal diet - Insulin sliding scale ACHS - Fingersticks ACHS Case was reviewed and discussed with attending, Dr Abbey Palma PGY2 <Gallo Potter S - Last Filed: 01/17/18 19:52> Subjective - Subjective Subjective: Pt seen and examined. I have reviewed the note of the medical cost consultant and agree with it. I have discussed the assessment and plan with the resident. I have reviewed the patient's labs and medications. P with R BKA and wound that is most likely infected. He was confused this morning. He is to get an extra treatment for fluid removal. He missed one HD treatment yesterday. The pt is not doing well. I spoke to his sister to update her. Prognosis is poor. He may lose more of his fingers due to PAD. He is going to need ID evaluation for the wound. Multiple consultants are following the pt. C diff has been negative. Objective - Vital Signs/Intake and Output Vital Signs (last 24 hours): Temp Pulse Resp BP Pulse Ox 98.1 F 70 18 90/47 L 97 01/17/18 17:27 01/17/18 18:00 01/17/18 17:27 01/17/18 17:27 01/17/18 06:00 Intake and Output: 01/17/18 01/18/18 18:59 06:59 Intake Total 120 Balance 120 - Medications Medications: Current Medications Albuterol/Ipratropium (Duoneb 3 Mg/0.5 Mg (3 Ml) Ud) 3 ml IH [id number] PRN PRN Reason: Shortness of Breath Arformoterol Tartrate (Brovana) 15 mcg IH [id number] [facility] Last Admin: 01/17/18 08:13 Dose: 15 mcg Aspirin (Ecotrin) 81 mg PO DAILY [facility] Last Admin: 01/17/18 19:08 Dose: 81 mg Atorvastatin Calcium (Lipitor) 80 mg PO HS [facility] Last Admin: 01/16/18 22:03 Dose: 80 mg Bacitracin (Bacitracin) 1 ea TOP BID [facility] Last Admin: 01/17/18 18:39 Dose: Not Given Budesonide (Pulmicort Respules) 0.5 mg IH Q12H [facility] Last Admin: 01/17/18 08:13 Dose: 0.5 mg Collagenase (Santyl) 1 gm TOP DAILY [facility] Last Admin: 01/17/18 09:46 Dose: 1 units Famotidine (Pepcid) 20 mg PO HS [facility] Last Admin: 01/16/18 22:03 Dose: 20 mg Fenofibrate (Tricor) 145 mg PO DAILY [facility] Last Admin: 01/17/18 19:10 Dose: 145 mg Fluticasone Propionate (Flonase) 1 actuation NS DAILY PRN PRN Reason: Nasal congestion Guaifenesin (Mucinex La) 600 mg PO BID PRN PRN Reason: Cough Heparin Sodium (Porcine) (Heparin) 5,000 units SC Q12 [facility]; Protocol Last Admin: 01/17/18 09:45 Dose: Not Given Insulin Human Regular (Humulin R) 2 units SC AC [facility] Last Admin: 01/17/18 18:39 Dose: Not Given Insulin Human Regular (Humulin R Med) 0 units SC ACHS [facility]; Protocol Last Admin: 01/17/18 18:40 Dose: Not Given Latanoprost (Xalatan Opht) 0 ml OU HS [facility] Last Admin: 01/16/18 22:04 Dose: 2.5 ml Levothyroxine Sodium (Synthroid) 50 mcg PO 0600 [facility] Metoprolol Tartrate (Lopressor) 25 mg PO BID [facility] Last Admin: 01/16/18 17:45 Dose: 25 mg Metronidazole (Flagyl) 250 mg PO Q6H [facility]; Protocol Stop: 01/24/18 10:16 Last Admin: 01/17/18 18:58 Dose: 250 mg Pregabalin (Lyrica) 50 mg PO HS [facility] Last Admin: 01/16/18 22:03 Dose: 50 mg Sodium Chloride ([place] Nasal [place]) 0 ml NS Q2 PRN PRN Reason: nasal congestion. Ticagrelor (Brilinta) 90 mg PO BID [facility] Last Admin: 01/17/18 18:58 Dose: 90 mg - Labs Labs: 01/17/18 16:15 01/17/18 16:15
--- NOTE | 2018-01-17 13:02 | CP.PCM.PN ---
Subjective - Date & Time of Evaluation Date of Evaluation: 01/17/18 Time of Evaluation: 12:53 - Subjective Subjective: Airam Hamm, PGY-1, Surgery Progress Note for Dr. Urrutia Patient seen and examined at bedside undergoing dialysis with nasal prongs for 2L of oxygen. Patient had no overnight events. Patient reports 2 episodes of nonbloody diarrhea in the past 24 hours, but denies any chest pain, heart palpitations, shortness of breath, nausea, vomiting, abdominal pain, dysuria, and hematuria. Objective - Vital Signs/Intake and Output Vital Signs (last 24 hours): Temp Pulse Resp BP Pulse Ox 98.0 F 72 20 92/50 L 97 01/17/18 06:00 01/17/18 06:00 01/17/18 06:00 01/17/18 06:00 01/17/18 06:00 Intake and Output: 01/17/18 01/17/18 06:59 18:59 Intake Total 800 Output Total 0 Balance 800 - Medications Medications: Current Medications Albuterol/Ipratropium (Duoneb 3 Mg/0.5 Mg (3 Ml) Ud) 3 ml IH [id number] PRN PRN Reason: Shortness of Breath Arformoterol Tartrate (Brovana) 15 mcg IH [id number] [facility] Last Admin: 01/17/18 08:13 Dose: 15 mcg Aspirin (Ecotrin) 81 mg PO DAILY [facility] Last Admin: 01/16/18 17:44 Dose: 81 mg Atorvastatin Calcium (Lipitor) 80 mg PO HS [facility] Last Admin: 01/16/18 22:03 Dose: 80 mg Bacitracin (Bacitracin) 1 ea TOP BID [facility] Last Admin: 01/17/18 09:30 Dose: 1 ea Budesonide (Pulmicort Respules) 0.5 mg IH Q12H [facility] Last Admin: 01/17/18 08:13 Dose: 0.5 mg Collagenase (Santyl) 1 gm TOP DAILY [facility] Last Admin: 01/17/18 09:46 Dose: 1 units Famotidine (Pepcid) 20 mg PO HS [facility] Last Admin: 01/16/18 22:03 Dose: 20 mg Fenofibrate (Tricor) 145 mg PO DAILY [facility] Last Admin: 01/16/18 17:44 Dose: 145 mg Fluticasone Propionate (Flonase) 1 actuation NS DAILY PRN PRN Reason: Nasal congestion Guaifenesin (Mucinex La) 600 mg PO BID PRN PRN Reason: Cough Heparin Sodium (Porcine) (Heparin) 5,000 units SC Q12 [facility]; Protocol Last Admin: 01/17/18 09:45 Dose: Not Given Insulin Human Regular (Humulin R) 2 units SC AC [facility] Last Admin: 01/17/18 11:55 Dose: Not Given Insulin Human Regular (Humulin R Med) 0 units SC ACHS [facility]; Protocol Last Admin: 01/17/18 11:55 Dose: Not Given Latanoprost (Xalatan Opht) 0 ml OU HS [facility] Last Admin: 01/16/18 22:04 Dose: 2.5 ml Levothyroxine Sodium (Synthroid) 50 mcg PO 0600 [facility] Metoprolol Tartrate (Lopressor) 25 mg PO BID [facility] Last Admin: 01/16/18 17:45 Dose: 25 mg Metronidazole (Flagyl) 250 mg PO Q6H [facility]; Protocol Stop: 01/24/18 10:16 Last Admin: 01/17/18 11:55 Dose: Not Given Oxycodone/Acetaminophen (Percocet 10/325 Mg Tab) 1 tab PO Q8H PRN PRN Reason: Pain, moderate (4-7) Pregabalin (Lyrica) 50 mg PO HS [facility] Last Admin: 01/16/18 22:03 Dose: 50 mg Sodium Chloride ([place] Nasal [place]) 0 ml NS Q2 PRN PRN Reason: nasal congestion. Ticagrelor (Brilinta) 90 mg PO BID [facility] Last Admin: 01/17/18 09:45 Dose: Not Given - Labs Labs: 01/17/18 06:15 01/17/18 06:15 - Constitutional Appears: Well, Non-toxic, No Acute Distress - Head Exam Head Exam: ATRAUMATIC, NORMAL INSPECTION, NORMOCEPHALIC - Eye Exam Eye Exam: EOMI Pupil Exam: PERRL - Respiratory Exam Respiratory Exam: Clear to Ausculation Bilateral, NORMAL BREATHING PATTERN - Cardiovascular Exam Cardiovascular Exam: REGULAR RHYTHM - GI/Abdominal Exam GI & Abdominal Exam: Distended, Soft Additional comments: no tympany on percussion - Extremities Exam Extremities Exam: Full ROM - Neurological Exam Neurological Exam: Alert, Awake, CN II-XII Intact, Normal Gait, Oriented x3 - Skin Additional comments: darkened skin on left hand 3rd finger. darkened and malodorous wound at right leg stump Assessment and Plan - Assessment and Plan (Free Text) Assessment: 52 year old male with past medical history of DM II, CHF, HTN, BPH, CVA, anemia, ESRD on HD (Monday, , Monday), Neuropathy presents with 8-10 episodes of black diarrhea for the past week and diffuse crampy abdominal pain. Patient also reports 1 week history of pain at base of left 3rd finger. Today diarrhea has improved and patient has had only 2 episodes of diarrhea overnight with negative C. Diff and VRE stool toxin Plan: Continue santyl, bacitracin for both right foot stump wound and left 3rd finger wound. Wound culture of right foot stump ordered. Awaiting results. Wound care consult ordered. DVT prophylaxis with heparin. GI prophylaxis with pepcid Replete electrolytes as needed. Will discuss case with Dr. Urrutia.
--- NOTE | 2018-01-17 13:19 | PN ---
DATE: 01/17/2018 REASON FOR CONSULTATION AND FOLLOWUP: Coronary artery disease, chest pain, initially admitted with abdominal pain and diarrhea. SUBJECTIVE: The patient denies any chest pain, shortness of breath, but feels does not good, wearing mask and getting preventive treatment. SUBJECTIVE: GENERAL: Not in apparent distress. VITAL SIGNS: Temperature 100.3, heart rate 70, blood pressure 108/50. HEENT: PERRLA. Extraocular muscles intact. NECK: Supple. No carotid bruits or thyromegaly. CHEST: Clear to auscultation. HEART: S1 and S2 regular. ABDOMEN: Soft. EXTREMITIES: Clubbing and cyanosis negative. BLOOD WORKUP: As follows: WBC 11, hemoglobin 8.4, hematocrit 26.2, platelet count 83. Chemistry shows sodium 130, potassium 4.7, chloride 97, CO2 of 27, anion gap of 18, BUN 42, creatinine 5.2, TSH 7.65. Troponin 0.12 as of yesterday. IMPRESSION: A 52-year-old male with the past medical history significant for brittle diabetes, full-blown complication of diabetes including diabetic retinopathy, nephropathy, neuropathy, end organ damage including amputation of right below-knee amputation, amputation of left middle finger, end-stage renal dialysis on dialysis, history of coronary artery disease, history of multiple stents, history of pacemaker, admitted with diarrhea. Today white blood cells are elevated as well as low grade fever with no evidence of acute myocardial infarction, total troponin 0.12 kidney disease not significant. No complaints of chest pain. Electrocardiogram unchanged. RECOMMENDATIONS: [place] culture and monitor closely. If the patient develops fever, continue broad-spectrum antibiotic and also we will give levothyroxine 250 mcg because of thyroid-stimulating hormone is elevated. Thank you for providing us the opportunity in taking care of patient, Ab Gomez. Jarred Erickson MD
[2018-01-17] MEDS ORDERED: Sodium Chloride 0.9% 250 ML IV SCH (15:45)
[2018-01-17] MEDS ORDERED: Sodium Chloride 0.9% 250 ML IV STA (16:05)
[2018-01-17 16:17] LABS: BASO # 0.02 K/mm3 (0.0-2.0); BASO % 0.1 % (0.0-3.0); EOS # 0.1 (0.0-0.7); EOS % 0.6 % (1.5-5.0); GRAN # 10.81 (1.4-6.5); GRAN % 76.2 % (50.0-68.0); HEMOGLOBIN 8.3 g/dL (14.0-18.0); LYMPH # 1.4 (1.2-3.4); MEAN CELL VOLUME 96.3 fl (80.0-105.0); MEAN CORPUSCULAR HGB CONC 32.2 g/dl (31.0-37.0); MEAN PLATELET VOLUME 13.8 fl (7.0-11.0); MONO # 1.9 (0.1-0.6); MONO % 13.1 % (1.0-6.0); RBC 2.68 10^6/uL (3.5-6.1); WHITE BLOOD COUNT 14.2 10^3/uL (4.5-11.0)
[2018-01-17 16:45] LABS: CALCIUM 8.4 mg/dL (8.4-10.5)
--- NOTE | 2018-01-17 18:21 | CARD ---
APPROVED REPORT Date of service: 01/17/2018 EKG Measurement Heart [id number] <Conclusion> Sinus rhythm with 1st degree AV block Left axis deviation Low voltage QRS Inferior infarct, age undetermined Abnormal ECG
--- NOTE | 2018-01-17 20:33 | PCM.RRT ---
<Chilango Jameson - Last Filed: 01/17/18 20:16> STUDENT COUNSELLOR Nurse Assessment - Situation Date: 01/17/18 Time STUDENT COUNSELLOR was called: 15:30 STUDENT COUNSELLOR Responder Arrival Time: 15:32 STUDENT COUNSELLOR Location:: [address] [place] [address] Room Number: [id number] STUDENT COUNSELLOR Reason for Call: Not Responding to Urgent Treatment STUDENT COUNSELLOR Called By: RN - IV IV Inserted during STUDENT COUNSELLOR?: Yes IV Fluids Initiated During STUDENT COUNSELLOR?: 0.9NS 250ml bolus over 30 minutes - Respiratory Oxygen Delivery Method: Nasal Cannula @L/min Oxygen Flow Rate: 3 Received Nebulizer Treatments:: No Was the Patient Ventilated with Bag/Mask 100% O2?: No Secretions Suctioned?: No Was the Patient Intubated?: No Was the Patient Placed on a Ventilator?: No - Medication Medications Administered During STUDENT COUNSELLOR: IV bolus 250ml 0.9NS over 30 min - Diagnostic Test Ordered EKG: Yes Chest X-Ray: No CT Scan: No - Stat Labs Ordered STUDENT COUNSELLOR Stat Labs Ordered: CBC, BMP CPR started during STUDENT COUNSELLOR?: No - Vital Signs Vital Sign: Rapid Response Vital Sign Blood Pressure 91/45 Pulse Rate 70 Temperature 102.4 F Oxygen Saturation 98 - Finger Stick Blood Glucose Finger Stick Blood Glucose: 115 - Sepsis Screen Part 1 Sepsis Screen Part 1: Hypotensive, Temperature over 100.6F - Time STUDENT COUNSELLOR Ended Time STUDENT COUNSELLOR Ended: 16:03 - Vital Signs at end of STUDENT COUNSELLOR Vital Signs at end of STUDENT COUNSELLOR: Rapid Response End Vital Sign Blood Pressure 92/56 Temperature 102.4 F - Recommendations Notifications: Attending Physician I.Reason for STUDENT COUNSELLOR - A) Acute Change in Patient: Subjective: Subjective: STUDENT COUNSELLOR was called on this 52 M with pertinent medical history of CKD on dialysis. Patient was responsive to pain stimuli but otherwise would not follow commands; he was, however, asking for pain medications and satting well on RA. Patient himself did not give any history, but history was obtained by RN that patient came back from dialysis and became hypotensive and stopped responding appropriately. Objective: Vitals were stable aside from BP of 80s/40s, patient baseline is at 90s/60s. BG was 104, normal. Patient was apparently not responsive at first, but became more responsive and asked for pain medications. CN II-XII were intact. No facial droop or loss of muscle or sensation was noted; patient also had RRR, CTAB, with baseline edema in all extremities. Assessment 52 year old male hypotensive likely 2/2 excess diasylate removed. DDx also included opiate OD but patient recovered without Narca admin. Plan - EKG was obtained, showed 1D HB with no ST/T changes - 1 250mL bolus over 30 minutes was given - CBC was done - Respiratory Oxygen Delivery Method: Nasal Cannula @L/min Oxygen Flow Rate: 3 - Constitutional Appears: Non-toxic - Head Head Exam: ATRAUMATIC, NORMAL INSPECTION, NORMOCEPHALIC - Eyes Eye Exam: EOMI, Normal appearance, PERRL - Respiratory Exam Respiratory Exam: Clear to Ausculation Bilateral, NORMAL BREATHING PATTERN - Cardiovascular Exam Cardiovascular Exam: REGULAR RHYTHM - GI/Abdominal Exam GI & Abdominal Exam: Normal Bowel Sounds - Neurological Exam Neurological Exam: Alert, Awake, CN II-XII Intact, Normal Gait, Oriented x3 - Extremities Exam Extremities Exam: Full ROM, Normal Capillary Refill, Normal Inspection Procedures Attestation:: I certify that I have explained the specified Operation(s) or Procedure(s), risks, benefits and reasonable alternatives to the Patient and/or other person responsible. The opportunity was given to ask questions and all questions answered - EJ/Peripheral Line Consent Obtained: verbal consent Time Out Performed: Yes Skin Cleansed in Sterile Fashion: Yes Size: 20 IV Secured and Dressing Applied: Yes Patient Tolerated Procedure: Well <Gallo Potter - Last Filed: 01/18/18 17:10> STUDENT COUNSELLOR Nurse Assessment - Vital Signs Vital Sign: Rapid Response Vital Sign Blood Pressure 91/45 Pulse Rate 70 Temperature 102.4 F Oxygen Saturation 98 - Vital Signs at end of STUDENT COUNSELLOR Vital Signs at end of STUDENT COUNSELLOR: Rapid Response End Vital Sign Blood Pressure 92/56 Temperature 102.4 F Plan - Assessment of Findings&Treatment Plan Spoke to Dr Kraues, resident. Pt will be given more IVF and BP will be followed.
[2018-01-17] MEDS ORDERED: Vancomycin 1gm in NS 250ml 1 GM/250 ML BAG IVPB STA (21:07)
[2018-01-17] MEDS: Latanoprost 2.5 ml Opht Soln OU SCH (22:52)
--- NOTE | 2018-01-18 01:11 | PN ---
DATE: 01/17/2018 PULMONARY PROGRESS NOTE REFERRING PHYSICIAN: Gallo Potter MD SUBJECTIVE: He just come back from dialysis, reported blood pressure was in high 70s, sleepy, arousable, also sister is at bedside, received normal saline 250 mL bolus, and pulse ox is 99-100% on nasal cannula. No cough. No sputum production. No chest pain. Still having loose bowel movements. OBJECTIVE: GENERAL: Sleepy, arousable. VITAL SIGNS: Temperature is 98, heart rate is 70, has a rectal temperature up to 102, and blood pressure was 77/41. HEENT: Moist mucous membrane. Crowded airway. Mallampati score is 4. NECK: Supple. No JVD. LUNGS: Fair airflow with few rhonchi. HEART: S1 and S2. ABDOMEN: Soft and nontender. No organomegaly. EXTREMITIES: Has a right BKA. Left leg trace swelling. NEUROLOGIC: Lethargic, arousable. MEDICATIONS: He is on bacitracin to affected area twice a day, Brilinta 90 mg twice day, Brovana inhaled twice a day, DuoNeb every 6 hours p.r.n., Ecotrin 81 mg daily, metronidazole 250 mg every 6 hours, Flonase one spray each nostril, heparin 5000 units subcutaneously every 12 hours, insulin coverage, Lipitor 80 mg at bedtime, metoprolol tartrate 25 mg twice a day which is on hold, Lyrica 50 mg at bedtime, Mucinex 600 mg twice a day, nasal saline every 2 hours p.r.n., Pepcid 20 mg at bedtime, Pulmicort inhaled twice a day, Santyl to affected area, Synthroid 50 mcg daily, and TriCor 145 mg daily. LABORATORY DATA: Shows hemoglobin 8.3, hematocrit 25.8, WBC 14.2, and platelet is 79. Sodium 136, potassium 2.9, chloride 97, bicarbonate 27, BUN 18, creatinine 2.7, glucose 197, and calcium is 8.4. TSH 7.65. Microbiology; stool for C. diff is negative. IMPRESSION AND PLAN: Sepsis, probably going to septic shock; blood pressure was 70s; history of chronic obstructive lung disease; obstructive sleep apnea syndrome; coronary artery disease; cardiac arrhythmia, requiring pacemaker; gastroparesis; history of dysfunction; peripheral vascular disease; renal failure, dialysis dependent; history of right below-knee amputation; diabetes; and may have Raynaud's phenomenon. Case discussed with nursing staff, also spoke to the patient's sister at bedside. All the questions answered. Reviewing the chart seems like rapid response was called later on because of no response to fluid challenge, so second bolus of fluid was given. Abdominal binder was placed, so have fever of 102. We will give him a dose of vancomycin and also Gram-negative coverage. Septic workup. We will give hydrocortisone, has adrenal insufficiency, and received steroids in the past. Encourage CPAP use. If blood pressure does not improve, may need to transfer to intensive care unit. Thank you and we will follow with you. Jarred Escalera MD
[2018-01-18] MEDS: Levothyroxine 25 MCG TAB PO SCH (06:04)
--- NOTE | 2018-01-18 07:31 | RAD ---
Date of service: 01/18/2018 HISTORY: r/o pneumonia COMPARISON: 01/16/2018 FINDINGS: LUNGS: No active pulmonary disease. PLEURA: No significant pleural effusion identified, no pneumothorax apparent. CARDIOVASCULAR: No aortic atherosclerotic calcification present. Moderate cardiomegaly no pulmonary vascular congestion. OSSEOUS STRUCTURES: No significant abnormalities. VISUALIZED UPPER ABDOMEN: Normal. OTHER FINDINGS: Dual lead pacemaker IMPRESSION: No active disease.
[2018-01-18] MEDS: Arformoterol 15 mcg/2 ml Inh Sol IH SCH ×2 (07:45→20:37)
[2018-01-18] MEDS: Budesonide 0.5 mg/2 ml Inhal Susp UD IH SCH ×2 (07:45→20:37)
--- NOTE | 2018-01-18 08:13 | CP.PCM.PN ---
Subjective - Date & Time of Evaluation Date of Evaluation: 01/18/18 Time of Evaluation: 06:35 - Subjective Subjective: Awake, alert, no distress Reason for consultation and follow up:Cardiac evaluation of chest pain,follow up of coronary artery disease, History of PPM, admitted for diarrhea Seen and examined by me and Dr. Erickson Objective - Vital Signs/Intake and Output Vital Signs (last 24 hours): Temp Pulse Resp BP Pulse Ox 97.6 F 89 20 99/50 L 97 01/18/18 06:00 01/18/18 06:00 01/18/18 06:00 01/18/18 06:00 01/18/18 06:00 Intake and Output: 01/18/18 01/18/18 06:59 18:59 Intake Total 727 Output Total 0 Balance 727 - Medications Medications: Current Medications Albuterol/Ipratropium (Duoneb 3 Mg/0.5 Mg (3 Ml) Ud) 3 ml IH [id number] PRN PRN Reason: Shortness of Breath Arformoterol Tartrate (Brovana) 15 mcg IH [id number] [facility] Last Admin: 01/18/18 07:45 Dose: 15 mcg Aspirin (Ecotrin) 81 mg PO DAILY [facility] Last Admin: 01/17/18 19:08 Dose: 81 mg Atorvastatin Calcium (Lipitor) 80 mg PO HS [facility] Last Admin: 01/17/18 22:53 Dose: 80 mg Bacitracin (Bacitracin) 1 ea TOP BID [facility] Last Admin: 01/17/18 18:39 Dose: Not Given Budesonide (Pulmicort Respules) 0.5 mg IH Q12H [facility] Last Admin: 01/18/18 07:45 Dose: 0.5 mg Collagenase (Santyl) 1 gm TOP DAILY [facility] Last Admin: 01/17/18 09:46 Dose: 1 units Famotidine (Pepcid) 20 mg PO HS [facility] Last Admin: 01/17/18 22:53 Dose: 20 mg Fenofibrate (Tricor) 145 mg PO DAILY [facility] Last Admin: 01/17/18 19:10 Dose: 145 mg Fluticasone Propionate (Flonase) 1 actuation NS DAILY PRN PRN Reason: Nasal congestion Guaifenesin (Mucinex La) 600 mg PO BID PRN PRN Reason: Cough Heparin Sodium (Porcine) (Heparin) 5,000 units SC Q12 [facility]; Protocol Last Admin: 01/17/18 22:53 Dose: 5,000 units Hydrocortisone Sodium Succinate (Solu-Cortef) 100 mg IVP Q8 [facility] Last Admin: 01/18/18 06:02 Dose: 100 mg Meropenem/Sodium Chloride (Merrem Iv 500 Mg/Ns 50 Ml) 500 mg in 50 mls @ 100 mls/hr IVPB Q12 [facility]; Protocol Stop: 01/27/18 10:01 Insulin Human Regular (Humulin R) 2 units SC AC [facility] Last Admin: 01/17/18 18:39 Dose: Not Given Insulin Human Regular (Humulin R Med) 0 units SC ACHS [facility]; Protocol Last Admin: 01/17/18 23:29 Dose: Not Given Latanoprost (Xalatan Opht) 0 ml OU HS [facility] Last Admin: 01/17/18 22:52 Dose: 2.5 ml Levothyroxine Sodium (Synthroid) 50 mcg PO 0600 [facility] Last Admin: 01/18/18 06:04 Dose: 50 mcg Metoprolol Tartrate (Lopressor) 25 mg PO BID [facility] Last Admin: 01/16/18 17:45 Dose: 25 mg Metronidazole (Flagyl) 250 mg PO Q6H [facility]; Protocol Stop: 01/24/18 10:16 Last Admin: 01/18/18 05:00 Dose: 250 mg Pregabalin (Lyrica) 50 mg PO HS [facility] Last Admin: 01/17/18 22:53 Dose: 50 mg Sodium Chloride ([place]ill Nasal [place]) 0 ml NS Q2 PRN PRN Reason: nasal congestion. Ticagrelor (Brilinta) 90 mg PO BID [facility] Last Admin: 01/17/18 18:58 Dose: 90 mg - Labs Labs: 01/17/18 16:15 01/17/18 16:15 - Constitutional Appears: Non-toxic, No Acute Distress - Head Exam Head Exam: NORMAL INSPECTION, NORMOCEPHALIC - ENT Exam ENT Exam: Mucous Membranes Dry - Respiratory Exam Respiratory Exam: Decreased Breath Sounds, NORMAL BREATHING PATTERN - Cardiovascular Exam Cardiovascular Exam: REGULAR RHYTHM, +S1, +S2 Additional comments: PPM - GI/Abdominal Exam GI & Abdominal Exam: Distended, Soft, Normal Bowel Sounds - Exam Additional comments: ESRD on hemodialysis 3x a week (MWF) - Extremities Exam Additional comments: right below knee amputation left middle finger amputation left AV shunt positive bruit - Neurological Exam Neurological Exam: Alert, Awake, Oriented x3 - Psychiatric Exam Psychiatric exam: Normal Affect, Normal Mood - Skin Skin Exam: Dry, Normal Color, Warm Assessment and Plan - Assessment and Plan (Free Text) Assessment: A 52 year old male obese who came in to the ER due to diarrhea for the past week prior to admission. History of very brittle insulin dependent diabetes mellitus, diabetic neuropathy,diabetic retinopathy,nephropathy,end stage renal disease, on hemodialysis 3x a week, left arm AV shunt /fistula, hypertension, hyperlipidemia,TIA, coronary artery disease with stents,resistant to Plavix, on Brilinta. severe peripheral vascular disease, post right below knee amputation, left middle finger amputation,TIA, PPM for sick sinus syndrome. subdural hematoma due to fall, COPD, pancreatitis. No evidence of myocardial infarction. Troponin negative, GI work up in progress. 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 Erickson
--- NOTE | 2018-01-18 09:44 | CP.PCM.PN ---
<Jojo Crouch - Last Filed: 01/18/18 13:02> Subjective - Date & Time of Evaluation Date of Evaluation: 01/18/18 Time of Evaluation: 09:43 - Subjective Subjective: Jojo Crouch DO, PGY-2: Progress Note for Dr. Potter Patient was seen and examined at bedside. Rapid Response noted yesterday afternoon. Patient was given a 1 L of fluid. Patient reports not having any more episodes of diarrhea. The patient is lethargic and somnolent. Falls asleep while answering questions. Objective - Vital Signs/Intake and Output Vital Signs (last 24 hours): Temp Pulse Resp BP Pulse Ox 97.6 F 89 20 99/50 L 97 01/18/18 06:00 01/18/18 06:00 01/18/18 06:00 01/18/18 06:00 01/18/18 06:00 Intake and Output: 01/18/18 01/18/18 06:59 18:59 Intake Total 727 Output Total 0 Balance 727 - Medications Medications: Current Medications Albuterol/Ipratropium (Duoneb 3 Mg/0.5 Mg (3 Ml) Ud) 3 ml IH [id number] PRN PRN Reason: Shortness of Breath Arformoterol Tartrate (Brovana) 15 mcg IH [id number] [facility] Last Admin: 01/18/18 07:45 Dose: 15 mcg Aspirin (Ecotrin) 81 mg PO DAILY [facility] Last Admin: 01/17/18 19:08 Dose: 81 mg Atorvastatin Calcium (Lipitor) 80 mg PO HS [facility] Last Admin: 01/17/18 22:53 Dose: 80 mg Bacitracin (Bacitracin) 1 ea TOP BID [facility] Last Admin: 01/17/18 18:39 Dose: Not Given Budesonide (Pulmicort Respules) 0.5 mg IH Q12H [facility] Last Admin: 01/18/18 07:45 Dose: 0.5 mg Collagenase (Santyl) 1 gm TOP DAILY [facility] Last Admin: 01/17/18 09:46 Dose: 1 units Famotidine (Pepcid) 20 mg PO HS [facility] Last Admin: 01/17/18 22:53 Dose: 20 mg Fenofibrate (Tricor) 145 mg PO DAILY [facility] Last Admin: 01/17/18 19:10 Dose: 145 mg Fluticasone Propionate (Flonase) 1 actuation NS DAILY PRN PRN Reason: Nasal congestion Guaifenesin (Mucinex La) 600 mg PO BID PRN PRN Reason: Cough Heparin Sodium (Porcine) (Heparin) 5,000 units SC Q12 [facility]; Protocol Last Admin: 01/17/18 22:53 Dose: 5,000 units Hydrocortisone Sodium Succinate (Solu-Cortef) 100 mg IVP Q8 [facility] Last Admin: 01/18/18 06:02 Dose: 100 mg Meropenem/Sodium Chloride (Merrem Iv 500 Mg/Ns 50 Ml) 500 mg in 50 mls @ 100 mls/hr IVPB Q12 [facility]; Protocol Stop: 01/27/18 10:01 Insulin Human Regular (Humulin R) 2 units SC AC [facility] Last Admin: 01/17/18 18:39 Dose: Not Given Insulin Human Regular (Humulin R Med) 0 units SC ACHS [facility]; Protocol Last Admin: 01/17/18 23:29 Dose: Not Given Latanoprost (Xalatan Opht) 0 ml OU HS [facility] Last Admin: 01/17/18 22:52 Dose: 2.5 ml Levothyroxine Sodium (Synthroid) 50 mcg PO 0600 [facility] Last Admin: 01/18/18 06:04 Dose: 50 mcg Metoprolol Tartrate (Lopressor) 25 mg PO BID [facility] Last Admin: 01/16/18 17:45 Dose: 25 mg Metronidazole (Flagyl) 250 mg PO Q6H [facility]; Protocol Stop: 01/24/18 10:16 Last Admin: 01/18/18 05:00 Dose: 250 mg Pregabalin (Lyrica) 50 mg PO HS [facility] Last Admin: 01/17/18 22:53 Dose: 50 mg Sodium Chloride (Severn Nasal [place]) 0 ml NS Q2 PRN PRN Reason: nasal congestion. Ticagrelor (Brilinta) 90 mg PO BID [facility] Last Admin: 01/17/18 18:58 Dose: 90 mg - Labs Labs: 01/17/18 16:15 01/17/18 16:15 - Constitutional Appears: No Acute Distress, Chronically Ill - Head Exam Head Exam: ATRAUMATIC, NORMOCEPHALIC - Eye Exam Eye Exam: EOMI, Normal appearance - ENT Exam ENT Exam: Mucous Membranes Dry - Neck Exam Neck Exam: Normal Inspection - Respiratory Exam Respiratory Exam: Decreased Breath Sounds. absent: Accessory Muscle Use - Cardiovascular Exam Cardiovascular Exam: RRR, +S1, +S2 - GI/Abdominal Exam GI & Abdominal Exam: Soft, Normal Bowel Sounds - Extremities Exam Extremities Exam: absent: Calf Tenderness Additional comments: R BKA noted - Neurological Exam Neurological Exam: Awake - Psychiatric Exam Psychiatric exam: Normal Affect, Normal Mood - Skin Skin Exam: Dry, Intact, Normal Color, Warm Assessment and Plan - Assessment and Plan (Free Text) Assessment: 52 year old male with a past medical history notable for ESRD, CAD with [place] 4 months ago, right BKA, and left third digit amputation who presents with melena and diarrhea. His blood cultures are growing gram negative rods in anaerobic bottle only. Patient is now on Amikacin and Meropenem. Appreciate ID recommendations Plan: 1a) Diarrhea and melena - GI consulted, Dr. Ahn - Stool for C. difficile toxin and antigen were negative however patient was on antibiotics for prolonged period of time for wound infections - Patient was placed on PO Flagyl by GI team 1b) Sepsis and anaerobic blood cultures growing gram negative rods x 1. Patient is on Amikacin and Meropenem. - Appreciate ID recommendations 2) ESRD - Continue with dialysis 3) CAD - Continue Brillinta 90 mg BID - Aspirin 81 mg - Metroprolol 25 mg BID - Atorvastatin 80 mg HS - Dr. Erickson consulted 4) DM II - Humulin regular ISS with ACHS fingerstick BG 5) Peripheral Neuropathy - Pregabalin 50 mg HS - Percocet 10 mg q6h PRN for pain 6) Upper respiratory symptoms - Mucinex LA 650 PRN - Flonase PRN 7) Hypothyroidism - Levothyroxine 25 mcg PO daily - TSH was below 10.00, no need to increase Levothyroxine 8) Right BKA and left middle finger amputation - Wound care needed - Dr. Urrutia consulted, expertise appreciated - Wound cultures growing polymicrobial bacteria 9) Dyslipidemia - Fenofibrate 145 mg PO daily Disposition: Guarded Case was reviewed and discussed with attending physician, Dr. Potter <Gallo Potter - Last Filed: 01/18/18 16:51> Objective - Vital Signs/Intake and Output Vital Signs (last 24 hours): Temp Pulse Resp BP Pulse Ox 97.2 F L 92 H 18 96/46 L 97 01/18/18 12:00 01/18/18 12:00 01/18/18 12:00 01/18/18 12:00 01/18/18 06:00 Intake and Output: 01/18/18 01/18/18 06:59 18:59 Intake Total 727 Output Total 0 Balance 727 - Medications Medications: Current Medications Acetaminophen (Tylenol 325mg Tab) 650 mg PO Q6H PRN PRN Reason: Fever >100.4 F Last Admin: 01/18/18 13:18 Dose: 650 mg Albuterol/Ipratropium (Duoneb 3 Mg/0.5 Mg (3 Ml) Ud) 3 ml IH [id number] PRN PRN Reason: Shortness of Breath Arformoterol Tartrate (Brovana) 15 mcg IH [id number] [facility] Last Admin: 01/18/18 07:45 Dose: 15 mcg Aspirin (Ecotrin) 81 mg PO DAILY [facility] Last Admin: 01/18/18 10:16 Dose: 81 mg Atorvastatin Calcium (Lipitor) 10 mg PO HS [facility] Bacitracin (Bacitracin) 1 ea TOP BID [facility] Last Admin: 01/18/18 10:16 Dose: 1 ea Budesonide (Pulmicort Respules) 0.5 mg IH Q12H [facility] Last Admin: 01/18/18 07:45 Dose: 0.5 mg Collagenase (Santyl) 1 gm TOP DAILY [facility] Last Admin: 01/18/18 10:17 Dose: 1 units Famotidine (Pepcid) 20 mg PO HS [facility] Last Admin: 01/17/18 22:53 Dose: 20 mg Fenofibrate (Tricor) 145 mg PO DAILY [facility] Last Admin: 01/18/18 10:16 Dose: 145 mg Fluticasone Propionate (Flonase) 1 actuation NS DAILY PRN PRN Reason: Nasal congestion Guaifenesin (Mucinex La) 600 mg PO BID PRN PRN Reason: Cough Heparin Sodium (Porcine) (Heparin) 5,000 units SC Q12 [facility]; Protocol Last Admin: 01/18/18 10:16 Dose: 5,000 units Hydrocortisone Sodium Succinate (Solu-Cortef) 100 mg IVP Q8 [facility] Last Admin: 01/18/18 13:19 Dose: 100 mg Meropenem/Sodium Chloride (Merrem Iv 500 Mg/Ns 50 Ml) 500 mg in 50 mls @ 100 mls/hr IVPB Q12 [facility]; Protocol Stop: 01/27/18 10:01 Last Admin: 01/18/18 10:15 Dose: 100 mls/hr Insulin Human Regular (Humulin R) 2 units SC AC [facility] Last Admin: 01/18/18 12:54 Dose: Not Given Insulin Human Regular (Humulin R Med) 0 units SC ACHS [facility]; Protocol Last Admin: 01/18/18 12:55 Dose: Not Given Latanoprost (Xalatan Opht) 0 ml OU HS [facility] Last Admin: 01/17/18 22:52 Dose: 2.5 ml Levothyroxine Sodium (Synthroid) 50 mcg PO 0600 [facility] Last Admin: 01/18/18 06:04 Dose: 50 mcg Metoprolol Tartrate (Lopressor) 25 mg PO BID [facility] Last Admin: 01/16/18 17:45 Dose: 25 mg Pregabalin (Lyrica) 50 mg PO HS [facility] Last Admin: 01/17/18 22:53 Dose: 50 mg Sodium Chloride (Severn Nasal [place]) 0 ml NS Q2 PRN PRN Reason: nasal congestion. Ticagrelor (Brilinta) 90 mg PO BID [facility] Last Admin: 01/18/18 10:16 Dose: 90 mg - Labs Labs: 01/18/18 10:00 01/18/18 10:00 Assessment and Plan - Assessment and Plan (Free Text) Assessment: Pt seen and examined. I have reviewed the note of the medical van driver and agree with it. I have discussed the assessment and plan with the resident. I have reviewed the patient's labs and medications. Pt with sepsis and is on IV Abx. He has ESRD on HD and will get HD in the AM. Pt has peripheral neuropathy and is on Pregabalin. He will continue with Levothyroxine for hypothyrodism. His dyslipidemia is being treated with Fenofibrate. The pt has CAD and PAD and will be on ASA. He will continue with Atorvastati for CAD. His prognosis is poor. I spoke to his family yesterday. The R leg wound may be infected. ID and Surgery is following.
--- NOTE | 2018-01-18 09:49 | CP.PCM.PN ---
<Kuldip Nur R - Last Filed: 01/18/18 10:30> Subjective - Date & Time of Evaluation Date of Evaluation: 01/18/18 Time of Evaluation: 09:47 - Subjective Subjective: PGY-2 GI progess note for Dr Ahn [employer] was called yesterday evening for low BP after HD. Patient is a poor historian answers questions intermittently. He is drowsy but arousable. He states that he has not had any episodes of diarrhea overnight. Stated he had pa in in his abdomen yesterday but today the pain was milder but still present. Denied emesis. Objective - Vital Signs/Intake and Output Vital Signs (last 24 hours): Temp Pulse Resp BP Pulse Ox 97.6 F 89 20 99/50 L 97 01/18/18 06:00 01/18/18 06:00 01/18/18 06:00 01/18/18 06:00 01/18/18 06:00 Intake and Output: 01/18/18 01/18/18 06:59 18:59 Intake Total 727 Output Total 0 Balance 727 - Medications Medications: Current Medications Albuterol/Ipratropium (Duoneb 3 Mg/0.5 Mg (3 Ml) Ud) 3 ml IH [id number] PRN PRN Reason: Shortness of Breath Arformoterol Tartrate (Brovana) 15 mcg IH [id number] [facility] Last Admin: 01/18/18 07:45 Dose: 15 mcg Aspirin (Ecotrin) 81 mg PO DAILY [facility] Last Admin: 01/17/18 19:08 Dose: 81 mg Atorvastatin Calcium (Lipitor) 80 mg PO HS [facility] Last Admin: 01/17/18 22:53 Dose: 80 mg Bacitracin (Bacitracin) 1 ea TOP BID [facility] Last Admin: 01/17/18 18:39 Dose: Not Given Budesonide (Pulmicort Respules) 0.5 mg IH Q12H [facility] Last Admin: 01/18/18 07:45 Dose: 0.5 mg Collagenase (Santyl) 1 gm TOP DAILY [facility] Last Admin: 01/17/18 09:46 Dose: 1 units Famotidine (Pepcid) 20 mg PO HS [facility] Last Admin: 01/17/18 22:53 Dose: 20 mg Fenofibrate (Tricor) 145 mg PO DAILY [facility] Last Admin: 01/17/18 19:10 Dose: 145 mg Fluticasone Propionate (Flonase) 1 actuation NS DAILY PRN PRN Reason: Nasal congestion Guaifenesin (Mucinex La) 600 mg PO BID PRN PRN Reason: Cough Heparin Sodium (Porcine) (Heparin) 5,000 units SC Q12 [facility]; Protocol Last Admin: 01/17/18 22:53 Dose: 5,000 units Hydrocortisone Sodium Succinate (Solu-Cortef) 100 mg IVP Q8 [facility] Last Admin: 01/18/18 06:02 Dose: 100 mg Meropenem/Sodium Chloride (Merrem Iv 500 Mg/Ns 50 Ml) 500 mg in 50 mls @ 100 mls/hr IVPB Q12 CARLOS; Protocol Stop: 01/27/18 10:01 Insulin Human Regular (Humulin R) 2 units SC AC [facility] Last Admin: 01/17/18 18:39 Dose: Not Given Insulin Human Regular (Humulin R Med) 0 units SC ACHS [facility]; Protocol Last Admin: 01/17/18 23:29 Dose: Not Given Latanoprost (Xalatan Opht) 0 ml OU HS [facility] Last Admin: 01/17/18 22:52 Dose: 2.5 ml Levothyroxine Sodium (Synthroid) 50 mcg PO 0600 [facility] Last Admin: 01/18/18 06:04 Dose: 50 mcg Metoprolol Tartrate (Lopressor) 25 mg PO BID [facility] Last Admin: 01/16/18 17:45 Dose: 25 mg Metronidazole (Flagyl) 250 mg PO Q6H CARLOS; Protocol Stop: 01/24/18 10:16 Last Admin: 01/18/18 05:00 Dose: 250 mg Pregabalin (Lyrica) 50 mg PO HS [facility] Last Admin: 01/17/18 22:53 Dose: 50 mg Sodium Chloride ([place] Nasal [place]) 0 ml NS Q2 PRN PRN Reason: nasal congestion. Ticagrelor (Brilinta) 90 mg PO BID [facility] Last Admin: 01/17/18 18:58 Dose: 90 mg - Labs Labs: 01/17/18 16:15 01/17/18 16:15 - Additional Findings Additional findings: - Constitutional Appears: Non-toxic, No Acute Distress, Older Than Stated Age, Chronically Ill - Head Exam Head Exam: ATRAUMATIC, NORMOCEPHALIC - Eye Exam Eye Exam: EOMI, Normal appearance, PERRL - ENT Exam ENT Exam: Mucous Membranes Moist - Respiratory Exam Respiratory Exam: Clear to Auscultation Bilateral, NORMAL BREATHING PATTERN. absent: Rales, Rhonchi, Wheezes - Cardiovascular Exam Cardiovascular Exam: REGULAR RHYTHM, +S1, +S2. absent: Gallop, Rubs, Systolic Murmur - GI/Abdominal Exam GI & Abdominal Exam: Normal Bowel Sounds, Soft. absent: Distended, Firm, Guarding, Rebound, Rigid, Tenderness - Extremities Exam Extremities exam: Positive for: full ROM Additional comments: S/p R BKA, dressing site c/d/i; L middle finger necrotic down to PIP, no abnormal drainage noted, painful with movement - Neurological Exam Neurological exam: Alert, CN II-XII Intact, Oriented x3 - Psychiatric Exam Psychiatric exam: Normal Affect, Normal Mood - Skin Skin Exam: Dry, Intact, Warm Assessment and Plan - Assessment and Plan (Free Text) Plan: 52 y/o Male w/ PMHx of CHF, HTN, BPH, CVA, DM2, anemia, ESRD on HD (T, Th, Sat), Neuropathy and recent R BKA with a PSHx of R BKA, cornea transplant, cho lecystectomy presenting to the emergency department complaining of severe diarrhea intermittent for the past 2 weeks, associated with diffuse abdominal pain: Diarrhea -possibly cdiff induced as patient was on abx meropenem and vanco for approx 12 days for recent inpatient admission for finger necrosis, patient was then discharged on vanco iv (infused with dialysis) which was continued for an additional 2 weeks -currently afebrile, white count increased possibly due to hydrocortisone vs infectious process -cdiff toxin and antigen negative -vre screen negative -CT abd/pelvis po contrast 01/16: * Small left pleural effusion and consolidation at left lung base. Mild ascites. No acute intra-abdominal findings. No evidence of enteritis or colitis -flagyl po 250mg q6h for 7 days -meropenem 500mg ivp q12h per ID -Dr Ahn to discuss with primary/pulm regarding hydrocortisone which was started yesterday Seen and discussed with Dr Ahn. <Jacquelin Ahn V - Last Filed: 01/19/18 00:01> Objective - Vital Signs/Intake and Output Vital Signs (last 24 hours): Temp Pulse Resp BP Pulse Ox 98 F 91 H 18 100/68 97 01/18/18 17:16 01/18/18 18:00 01/18/18 17:16 01/18/18 18:04 01/18/18 06:00 Intake and Output: 01/18/18 01/19/18 18:59 06:59 Intake Total 480 Balance 480 - Medications Medications: Current Medications Acetaminophen (Tylenol 325mg Tab) 650 mg PO Q6H PRN PRN Reason: Fever >100.4 F Last Admin: 01/18/18 13:18 Dose: 650 mg Albuterol/Ipratropium (Duoneb 3 Mg/0.5 Mg (3 Ml) Ud) 3 ml IH [id number] PRN PRN Reason: Shortness of Breath Arformoterol Tartrate (Brovana) 15 mcg IH [id number] [facility] Last Admin: 01/18/18 20:37 Dose: 15 mcg Aspirin (Ecotrin) 81 mg PO DAILY [facility] Last Admin: 01/18/18 10:16 Dose: 81 mg Atorvastatin Calcium (Lipitor) 10 mg PO HS [facility] Last Admin: 01/18/18 22:42 Dose: 10 mg Bacitracin (Bacitracin) 1 ea TOP BID [facility] Last Admin: 01/18/18 17:59 Dose: 1 ea Budesonide (Pulmicort Respules) 0.5 mg IH Q12H [facility] Last Admin: 01/18/18 20:37 Dose: 0.5 mg Collagenase (Santyl) 1 gm TOP DAILY [facility] Last Admin: 01/18/18 10:17 Dose: 1 units Famotidine (Pepcid) 20 mg PO HS [facility] Last Admin: 01/18/18 22:43 Dose: 20 mg Fenofibrate (Tricor) 145 mg PO DAILY [facility] Last Admin: 01/18/18 10:16 Dose: 145 mg Fluticasone Propionate (Flonase) 1 actuation NS DAILY PRN PRN Reason: Nasal congestion Guaifenesin (Mucinex La) 600 mg PO BID PRN PRN Reason: Cough Heparin Sodium (Porcine) (Heparin) 5,000 units SC Q12 [facility]; Protocol Last Admin: 01/18/18 22:42 Dose: 5,000 units Hydrocortisone Sodium Succinate (Solu-Cortef) 50 mg IVP Q8 [facility] Meropenem/Sodium Chloride (Merrem Iv 500 Mg/Ns 50 Ml) 500 mg in 50 mls @ 100 mls/hr IVPB Q12 [facility]; Protocol Stop: 01/27/18 10:01 Last Admin: 01/18/18 22:44 Dose: 100 mls/hr Insulin Human Regular (Humulin R) 2 units SC AC [facility] Last Admin: 01/18/18 17:18 Dose: Not Given Insulin Human Regular (Humulin R Med) 0 units SC ACHS [facility]; Protocol Last Admin: 01/18/18 23:06 Dose: 2 units Latanoprost (Xalatan Opht) 0 ml OU HS [facility] Last Admin: 01/18/18 22:44 Dose: 2.5 ml Levothyroxine Sodium (Synthroid) 50 mcg PO 0600 [facility] Last Admin: 01/18/18 06:04 Dose: 50 mcg Metoprolol Tartrate (Lopressor) 25 mg PO BID [facility] Last Admin: 01/16/18 17:45 Dose: 25 mg Pregabalin (Lyrica) 50 mg PO HS [facility] Last Admin: 01/18/18 22:43 Dose: 50 mg Sodium Chloride ([place] Nasal [place]) 0 ml NS Q2 PRN PRN Reason: nasal congestion. Ticagrelor (Brilinta) 90 mg PO BID [facility] Last Admin: 01/18/18 17:59 Dose: 90 mg - Labs Labs: 01/18/18 10:00 01/18/18 10:00 Attending/Attestation - Attestation I have personally seen and examined this patient.: Yes I have fully participated in the care of the patient.: Yes I have reviewed all pertinent clinical information, including history, physical exam and plan: Yes
[2018-01-18 10:07] LABS: BASO # 0.02 K/mm3 (0.0-2.0); BASO % 0.1 % (0.0-3.0); GRAN # 22.01 (1.4-6.5); GRAN % 90.7 % (50.0-68.0); HEMOGLOBIN 9.5 g/dL (14.0-18.0); LYMPH # 1.1 (1.2-3.4); LYMPH % 4.5 % (22.0-35.0); MEAN CELL VOLUME 96.7 fl (80.0-105.0); MEAN CORPUSCULAR HGB CONC 32.1 g/dl (31.0-37.0); MEAN PLATELET VOLUME 12.6 fl (7.0-11.0); MONO # 1.2 (0.1-0.6); MONO % 4.7 % (1.0-6.0); PLATELET COUNT 104 10^3/uL (120.0-450.0); RBC 3.06 10^6/uL (3.5-6.1); RED CELL DISTRIBUTION WIDTH 18.1 % (11.5-14.5); WHITE BLOOD COUNT 24.3 10^3/uL (4.5-11.0)
[2018-01-18] MEDS: MEROPENEM 500 MG in NS 500 MG/50 ML BAG IVPB SCH ×2 (10:15→22:44)
[2018-01-18] MEDS: Bacitracin 500 Units/gm Oint Foilpak UD TOP SCH ×2 (10:16→17:59)
[2018-01-18] MEDS: Insulin Reg-MEDIUM-Coverage SC SCH ×4 (10:16→23:06)
[2018-01-18] MEDS: Insulin Regular 1 UNITS/0.01 ML ML SC SCH ×3 (10:16→17:18)
[2018-01-18] MEDS: Collagenase 250 Units/gm Ointment(30 gm) TOP SCH (10:17)
[2018-01-18 10:20] LABS: ALB/GLOB RATIO 0.6 (1.1-1.8); ALBUMIN 2.4 g/dL (3.0-4.8); CALCIUM 8.3 mg/dL (8.4-10.5)
[2018-01-18 11:09] LABS: BAND 3 % (0-2); LYMPHOCYTE 5 % (22.0-35.0); MONOCYTE 2 % (1.0-6.0); NEUTROPHIL 90 % (50.0-70.0); NUCLEATED RED BLOOD CELL 1 %
[2018-01-18 11:10] LABS: HYPOCHROMIA 1+; LARGE PLATELETS PRESENT; PLATELET ESTIMATE LOW (NORMAL)
--- NOTE | 2018-01-18 20:31 | CON ---
DATE: 01/18/2018 SUBJECTIVE: The patient is in bed, seen earlier this morning in room 268, bed 2. CHIEF COMPLAINT: Fever x1 day duration. HISTORY OF PRESENT ILLNESS: This is a 52-year-old male with obesity, BMI of 31, with hypertension, diabetes, chronic renal failure, hemodialysis in the fistula, peripheral vascular disease, coronary artery disease, history of Guerline glabrata fungemia, who had a negative LASHAWN. He was treated adequately, now is admitted with a fever and right stump infection. Infectious Disease consultation requested. REVIEW OF SYSTEMS: Reveals the patient does have fevers, chills, mild shortness of breath, minimal cough. There is abdominal pain on and off intermittently, but it is diffuse. No new back pain. No new joint pain. No headaches or blurred vision. A 14-point review of system is performed. PAST MEDICAL HISTORY: Significant for diabetes mellitus; hypertension; chronic renal failure, on hemodialysis; peripheral vascular ease; coronary artery disease; Guerline glabrata fungemia; negative LASHAWN. PAST SURGICAL HISTORY: Significant for cholecystectomy, pacemaker, right [id number] amputation, and cardiac cath with stent placement. ALLERGIES: THE PATIENT IS ALLERGIC TO MOXIFLOXACIN, INSULIN, AND PENICILLIN. MEDICATIONS: At home are reviewed. PHYSICAL EXAMINATION GENERAL: The patient is in bed, in no acute distress, answering questions appropriately. VITAL SIGNS: Temperature of 100.3, heart rate of 78 with a respiratory rate of 20, blood pressure was 86/44. The patient's saturation is noted at 96, it was on room air. HEENT: Unremarkable. NECK: Supple. LUNGS: Have decreased breath sounds. HEART: Normal S1, S2. ABDOMEN: Soft, nontender. No organomegaly, no rebound, no guarding. No masses. LABORATORY DATA: Laboratory examination reveals the patient's white count is reported to be 24,300. Platelets are at low at 104. Chemistries are noted. The patient's creatinine is at 3.7, and microbiology reveals a Gram-negative felix in the blood cultures and the right leg stump cultures are Gram-negative felix and Gram-positive cocci. Stool for C. diff is negative. ASSESSMENT AND PLAN: This is a 52-year-old male with diabetes mellitus; hypertension; chronic renal failure, on hemodialysis; peripheral vascular disease; coronary artery disease; Guerline glabrata with severe sepsis secondary to Gram-negative felix bacteremia and secondary to right stump cellulitis, must rule out gastrointestinal as a source of Gram-negative felix versus urine. We will order urinalysis and urine culture. The patient had a CAT scan of the abdomen which was negative. We will give one dose of Amikacin for resistant Gram-negative and treat the patient with meropenem, adjusted for renal failure, and we will check on the identification of Gram-negative felix in the blood and check on the urinalysis, urine culture, and make further recommendations upon availability of initial results. Jaspreet Forbes MD
[2018-01-18] MEDS: Latanoprost 2.5 ml Opht Soln OU SCH (22:44)
--- NOTE | 2018-01-18 23:12 | PN ---
DATE: 01/18/2018 PULMONARY PROGRESS NOTE REFERRING PHYSICIAN: Gallo Potter MD. SUBJECTIVE: He is sitting side of the bed, sister at the bedside. Feels much better than yesterday. Used CPAP last night. No headache. No rhinitis. No chest pain. No abdominal pain. Does have a hand and leg discomfort. PHYSICAL EXAMINATION: GENERAL: In no acute distress. VITAL SIGNS: Temperature is 98, heart rate is 88, respiratory rate is 18, blood pressure 100/68. HEENT: Moist mucous membrane. Crowded airway. NECK: Supple. No JVD. LUNGS: Have a fair airflow with prolonged expiratory phase. HEART: S1 and S2. ABDOMEN: Soft, nontender. No organomegaly. EXTREMITIES: Trace edema of the left leg. Right BKA stump looks okay. Hand fingers are cold to touch. NEUROLOGIC: Awake, alert, and follows simple command. MEDICATIONS: He is on bacitracin ointment to affected area twice a day, Brilinta 90 mg twice a day, Brovana inhaled twice a day, DuoNeb every 6 hours p.r.n., Ecotrin 81 mg daily, Flonase one spray in east nostril daily, heparin 5000 units every 12 hours, insulin coverage, Lipitor 10 mg at bedtime, metoprolol tartrate 25 mg twice a day, Lyrica 50 mg at bedtime, meropenem is 500 mg every 12 hours, Mucinex LA 600 twice a day, Pepcid 20 mg at bedtime, Pulmicort inhaled twice a day, Santyl 1 g topically daily, Solu-Cortef 100 mg every 8 hours, Synthroid 50 mcg daily, TriCor 145 mg daily, and Tylenol p.r.n. LABORATORY DATA: Shows hemoglobin 9.5, hematocrit 29.6, WBC 24,000, platelet is 104. Sodium 135, potassium 4.5, chloride 96, bicarbonate 26, BUN 26, creatinine 3.7, glucose 156, calcium is 8.3, magnesium 1.9. Total bili 1.8, AST 51, ALT 22, alk phos is 81. Albumin is 2.4. Microbiology, blood culture has gram-negative rods. Leg wound has gram-negative rods. Chest x-ray done today shows no infiltrate. IMPRESSION AND PLAN: Septic shock with gram negative rods in the blood, probably of adrenal insufficiency, chronic obstructive lung disease, obstructive sleep apnea syndrome, coronary artery disease, cardiac arrhythmia requiring pacemaker, gastroparesis, severe peripheral vascular disease, nonhealing ulcer on the right foot requiring right below-knee amputation. May have Raynaud phenomenon with ischemic fingers. Case discussed with family at bedside. All the questions answered. Continue broad-spectrum antibiotics until ID of organism and sensitivity is available. We will decrease Solu-Cortef to 50 mg every 8 hours. Sleep apnea precaution. Encourage CPAP use. Gastric prophylaxis, DVT prophylaxis. Thank you and we will follow with you. Jarred Escalera MD
[2018-01-19] MEDS: Levothyroxine 25 MCG TAB PO SCH (07:11)
[2018-01-19] MEDS: Arformoterol 15 mcg/2 ml Inh Sol IH SCH ×2 (08:13→21:39)
[2018-01-19] MEDS: Budesonide 0.5 mg/2 ml Inhal Susp UD IH SCH ×2 (08:13→21:39)
--- NOTE | 2018-01-19 10:05 | PN ---
DATE: 01/18/2018 REASON FOR CONSULTATION AND FOLLOWUP: Cardiac evaluation due to coronary artery disease, history of peripheral arterial disease, and history of pacemaker. This note is an addition to dictated by nurse practitioner. The patient admitted for diarrhea. Yesterday post-dialysis, the patient had rapid responsive with low blood pressure, responded to the IV fluid. So far, his fluids are positive for the C. diff. No evidence of acute PA with borderline 0.21 troponin increased, CKD dialysis patient probably significant unknown. The patient had albumin level 2.4, which is consistent with severe protein-calorie malnutrition which is not present on admission. RECOMMENDATIONS: borderline, continue aspirin, continue heparin, continue atorvastatin, continue low-dose beta-valerie, and continue antibiotic. We will increase nutritional support by giving Glucerna supplement to prevent wound healing. The patient's LDL is 30, HDL is 50, and total triglyceride is 97. Total cholesterol is 1150, so we will cut down Lipitor to 10 mg daily. The levothyroxine has been increased to 25 to 50 because of elevated TSH. Thank you Dr. Potter for providing us the opportunity in taking care patient, . Jarred Erickson MD
[2018-01-19] MEDS: Bacitracin 500 Units/gm Oint Foilpak UD TOP SCH ×2 (10:32→20:14)
--- NOTE | 2018-01-19 10:35 | CP.PCM.PN ---
<Kuldip Nur R - Last Filed: 01/19/18 14:20> Subjective - Date & Time of Evaluation Date of Evaluation: 01/19/18 Time of Evaluation: 10:32 - Subjective Subjective: PGY-2 GI progess note for Dr Ahn Seen in HD. No acute events overnight. No fevers overnight, diastolic BP low. He is drowsy but arousable. He states that he is no longer having diarrhea. Stated his abdominal discomfort "comes and goes". Denied emesis. Objective - Vital Signs/Intake and Output Vital Signs (last 24 hours): Temp Pulse Resp BP Pulse Ox 97.4 F L 65 18 111/48 L 99 01/19/18 06:00 01/19/18 06:00 01/19/18 06:00 01/19/18 06:00 01/19/18 06:00 Intake and Output: 01/19/18 01/19/18 06:59 18:59 Intake Total 240 Balance 240 - Medications Medications: Current Medications Acetaminophen (Tylenol 325mg Tab) 650 mg PO Q6H PRN PRN Reason: Fever >100.4 F Last Admin: 01/18/18 13:18 Dose: 650 mg Albuterol/Ipratropium (Duoneb 3 Mg/0.5 Mg (3 Ml) Ud) 3 ml IH [id number] PRN PRN Reason: Shortness of Breath Arformoterol Tartrate (Brovana) 15 mcg IH [id number] [facility] Last Admin: 01/19/18 08:13 Dose: Not Given Aspirin (Ecotrin) 81 mg PO DAILY [facility] Last Admin: 01/18/18 10:16 Dose: 81 mg Atorvastatin Calcium (Lipitor) 10 mg PO HS [facility] Last Admin: 01/18/18 22:42 Dose: 10 mg Bacitracin (Bacitracin) 1 ea TOP BID [facility] Last Admin: 01/18/18 17:59 Dose: 1 ea Budesonide (Pulmicort Respules) 0.5 mg IH Q12H [facility] Last Admin: 01/19/18 08:13 Dose: Not Given Collagenase (Santyl) 1 gm TOP DAILY [facility] Last Admin: 01/18/18 10:17 Dose: 1 units Famotidine (Pepcid) 20 mg PO HS [facility] Last Admin: 01/18/18 22:43 Dose: 20 mg Fenofibrate (Tricor) 145 mg PO DAILY [facility] Last Admin: 01/18/18 10:16 Dose: 145 mg Fluticasone Propionate (Flonase) 1 actuation NS DAILY PRN PRN Reason: Nasal congestion Guaifenesin (Mucinex La) 600 mg PO BID PRN PRN Reason: Cough Heparin Sodium (Porcine) (Heparin) 5,000 units SC Q12 [facility]; Protocol Last Admin: 01/18/18 22:42 Dose: 5,000 units Hydrocortisone Sodium Succinate (Solu-Cortef) 50 mg IVP Q8 [facility] Last Admin: 01/19/18 07:12 Dose: 50 mg Meropenem/Sodium Chloride (Merrem Iv 500 Mg/Ns 50 Ml) 500 mg in 50 mls @ 100 mls/hr IVPB Q12 [facility]; Protocol Stop: 01/27/18 10:01 Last Admin: 01/18/18 22:44 Dose: 100 mls/hr Insulin Human Regular (Humulin R) 2 units SC AC [facility] Last Admin: 01/18/18 17:18 Dose: Not Given Insulin Human Regular (Humulin R Med) 0 units SC ACHS [facility]; Protocol Last Admin: 01/18/18 23:06 Dose: 2 units Latanoprost (Xalatan Opht) 0 ml OU HS [facility] Last Admin: 01/18/18 22:44 Dose: 2.5 ml Levothyroxine Sodium (Synthroid) 50 mcg PO 0600 [facility] Last Admin: 01/19/18 07:11 Dose: 50 mcg Metoprolol Tartrate (Lopressor) 25 mg PO BID [facility] Last Admin: 01/16/18 17:45 Dose: 25 mg Pregabalin (Lyrica) 50 mg PO HS [facility] Last Admin: 01/18/18 22:43 Dose: 50 mg Sodium Chloride ([place] Nasal [place]) 0 ml NS Q2 PRN PRN Reason: nasal congestion. Ticagrelor (Brilinta) 90 mg PO BID [facility] Last Admin: 01/18/18 17:59 Dose: 90 mg - Labs Labs: 01/18/18 10:00 01/18/18 10:00 - Additional Findings Additional findings: - Constitutional Appears: Non-toxic, No Acute Distress, Older Than Stated Age, Chronically Ill - Head Exam Head Exam: ATRAUMATIC, NORMOCEPHALIC - Eye Exam Eye Exam: EOMI, Normal appearance, PERRL - ENT Exam ENT Exam: Mucous Membranes Moist - Respiratory Exam Respiratory Exam: Clear to Auscultation Bilateral, NORMAL BREATHING PATTERN. absent: Rales, Rhonchi, Wheezes - Cardiovascular Exam Cardiovascular Exam: REGULAR RHYTHM, +S1, +S2. absent: Gallop, Rubs, Systolic Murmur - GI/Abdominal Exam GI & Abdominal Exam: Normal Bowel Sounds, Soft. absent: Distended, Firm, Guarding, Rebound, Rigid, Tenderness - Extremities Exam Extremities exam: Positive for: full ROM Additional comments: S/p R BKA, dressing site c/d/i; L middle finger necrotic down to PIP, no abnormal drainage noted, painful with movement - Neurological Exam Neurological exam: Alert, CN II-XII Intact, Oriented x3 - Psychiatric Exam Psychiatric exam: Normal Affect, Normal Mood - Skin Skin Exam: Dry, Intact, Warm Assessment and Plan - Assessment and Plan (Free Text) Plan: 52 y/o Male w/ PMHx of CHF, HTN, BPH, CVA, DM2, anemia, ESRD on HD (T, Th, Sat), Neuropathy and recent R BKA with a PSHx of R BKA, cornea transplant, cholecystectomy presenting to the emergency department complaining of severe diarrhea intermittent for the past 2 weeks, associated with diffuse abdominal pain: Diarrhea, Resolved -possibly cdiff induced as patient was on abx meropenem and vanco for approx 12 days for recent inpatient admission for finger necrosis, patient was then discharged on vanco iv (infused with dialysis) which was continued for an additional 2 weeks -currently afebrile, white count increased possibly due to hydrocortisone vs infectious process -cdiff toxin and antigen negative -vre screen negative -CT abd/pelvis po contrast 01/16: * Small left pleural effusion and consolidation at left lung base. Mild ascites. No acute intra-abdominal findings. No evidence of enteritis or colitis -blood cx growing gram negative rods and right leg wound cx growing klebsiella, serratia and VRE -meropenem 500mg ivp q12h per ID -recommend hydrocortisone only for a short course Seen and discussed with Dr Ahn. <Jacquelin Ahn V - Last Filed: 01/19/18 22:07> Objective - Vital Signs/Intake and Output Vital Signs (last 24 hours): Temp Pulse Resp BP Pulse Ox 97.4 F L 75 18 84/40 L 99 01/19/18 18:00 01/19/18 18:00 01/19/18 18:00 01/19/18 18:00 01/19/18 06:00 Intake and Output: 01/19/18 01/20/18 18:59 06:59 Intake Total 900 Output Total 0 Balance 900 - Medications Medications: Current Medications Acetaminophen (Tylenol 325mg Tab) 650 mg PO Q6H PRN PRN Reason: Fever >100.4 F Last Admin: 01/19/18 20:29 Dose: 650 mg Albuterol/Ipratropium (Duoneb 3 Mg/0.5 Mg (3 Ml) Ud) 3 ml IH [id number] PRN PRN Reason: Shortness of Breath Arformoterol Tartrate (Brovana) 15 mcg IH [id number] [facility] Last Admin: 01/19/18 21:39 Dose: 15 mcg Aspirin (Ecotrin) 81 mg PO DAILY [facility] Last Admin: 01/19/18 10:32 Dose: 81 mg Atorvastatin Calcium (Lipitor) 10 mg PO HS [facility] Last Admin: 01/19/18 21:44 Dose: 10 mg Bacitracin (Bacitracin) 1 ea TOP BID [facility] Last Admin: 01/19/18 20:14 Dose: 1 ea Budesonide (Pulmicort Respules) 0.5 mg IH Q12H [facility] Last Admin: 01/19/18 21:39 Dose: 0.5 mg Collagenase (Santyl) 1 gm TOP DAILY [facility] Last Admin: 01/19/18 20:18 Dose: Not Given Famotidine (Pepcid) 20 mg PO HS [facility] Last Admin: 01/19/18 21:46 Dose: 20 mg Fenofibrate (Tricor) 145 mg PO DAILY [facility] Last Admin: 01/19/18 10:00 Dose: 145 mg Fluticasone Propionate (Flonase) 1 actuation NS DAILY PRN PRN Reason: Nasal congestion Guaifenesin (Mucinex La) 600 mg PO BID PRN PRN Reason: Cough Heparin Sodium (Porcine) (Heparin) 5,000 units SC Q12 [facility]; Protocol Last Admin: 01/19/18 21:47 Dose: 5,000 units Hydrocortisone Sodium Succinate (Solu-Cortef) 50 mg IVP Q8 [facility] Last Admin: 01/19/18 21:46 Dose: 50 mg Meropenem/Sodium Chloride (Merrem Iv 500 Mg/Ns 50 Ml) 500 mg in 50 mls @ 100 mls/hr IVPB Q12 [facility]; Protocol Stop: 01/27/18 10:01 Last Admin: 01/19/18 21:45 Dose: 100 mls/hr Insulin Human Regular (Humulin R) 2 units SC AC [facility] Last Admin: 01/19/18 18:03 Dose: 2 units Insulin Human Regular (Humulin R Med) 0 units SC ACHS [facility]; Protocol Last Admin: 01/19/18 16:30 Dose: 1 units Latanoprost (Xalatan Opht) 0 ml OU HS [facility] Last Admin: 01/18/18 22:44 Dose: 2.5 ml Levothyroxine Sodium (Synthroid) 50 mcg PO 0600 [facility] Last Admin: 01/19/18 07:11 Dose: 50 mcg Metoprolol Tartrate (Lopressor) 25 mg PO BID [facility] Last Admin: 01/16/18 17:45 Dose: 25 mg Pregabalin (Lyrica) 50 mg PO HS [facility] Last Admin: 01/19/18 21:44 Dose: 50 mg Sodium Chloride ([place] Nasal [place]) 0 ml NS Q2 PRN PRN Reason: nasal congestion. Ticagrelor (Brilinta) 90 mg PO BID [facility] Last Admin: 01/19/18 18:00 Dose: 90 mg - Labs Labs: 01/18/18 10:00 01/18/18 10:00 Attending/Attestation - Attestation I have personally seen and examined this patient.: Yes I have fully participated in the care of the patient.: Yes I have reviewed all pertinent clinical information, including history, physical exam and plan: Yes Notes (Text): This is an addendum to GI followup report dictated by the Communications Lead. The patient was seen and evaluated earlier. Medical records, lab studies, imagings were reviewed. Last 24 hours events reviewed. Agreed with the above treatment plan as outlined in Communications Lead 's notes with the addition of the following Patient feeling better now Wound culture results noticed Patient is on isolation On examination abdomen soft mild tenderness on deep pal Discussed with Dr Escalera Patient is on tapering dose of steroid which was being considered considered in view of his clinical status and hypotension before gram-negative rods in the blood culture diarrhea has improved Tolerating diet Discussed with Dr. Higgins 01/19/18 22:03
[2018-01-19] MEDS: Insulin Regular 1 UNITS/0.01 ML ML SC SCH ×4 (10:38→18:03)
--- NOTE | 2018-01-19 11:34 | CP.PCM.PN ---
<Jojo Crouch - Last Filed: 01/19/18 12:30> Subjective - Date & Time of Evaluation Date of Evaluation: 01/19/18 Time of Evaluation: 07:15 - Subjective Subjective: Jojo Crouch DO, PGY-2: Progress Note for Dr. Potter Patient was seen and examined at bedside. Patient is answering questions appropriately. He is not as confused today. He asks if he will be going for dialysis today. He requests help to get out of bed. Nurse reports no adverse events overnight. Objective - Vital Signs/Intake and Output Vital Signs (last 24 hours): Temp Pulse Resp BP Pulse Ox 97.4 F L 65 18 111/48 L 99 01/19/18 06:00 01/19/18 06:00 01/19/18 06:00 01/19/18 06:00 01/19/18 06:00 Intake and Output: 01/19/18 01/19/18 06:59 18:59 Intake Total 240 Balance 240 - Medications Medications: Current Medications Acetaminophen (Tylenol 325mg Tab) 650 mg PO Q6H PRN PRN Reason: Fever >100.4 F Last Admin: 01/18/18 13:18 Dose: 650 mg Albuterol/Ipratropium (Duoneb 3 Mg/0.5 Mg (3 Ml) Ud) 3 ml IH [id number] PRN PRN Reason: Shortness of Breath Arformoterol Tartrate (Brovana) 15 mcg IH [id number] [facility] Last Admin: 01/19/18 08:13 Dose: Not Given Aspirin (Ecotrin) 81 mg PO DAILY [facility] Last Admin: 01/19/18 10:32 Dose: 81 mg Atorvastatin Calcium (Lipitor) 10 mg PO [facility] Last Admin: 01/18/18 22:42 Dose: 10 mg Bacitracin (Bacitracin) 1 ea TOP BID [facility] Last Admin: 01/19/18 10:32 Dose: 1 ea Budesonide (Pulmicort Respules) 0.5 mg IH Q12H [facility] Last Admin: 01/19/18 08:13 Dose: Not Given Collagenase (Santyl) 1 gm TOP DAILY [facility] Last Admin: 01/18/18 10:17 Dose: 1 units Famotidine (Pepcid) 20 mg PO [facility] Last Admin: 01/18/18 22:43 Dose: 20 mg Fenofibrate (Tricor) 145 mg PO DAILY [facility] Last Admin: 01/18/18 10:16 Dose: 145 mg Fluticasone Propionate (Flonase) 1 actuation NS DAILY PRN PRN Reason: Nasal congestion Guaifenesin (Mucinex La) 600 mg PO BID PRN PRN Reason: Cough Heparin Sodium (Porcine) (Heparin) 5,000 units SC Q12 [facility]; Protocol Last Admin: 01/18/18 22:42 Dose: 5,000 units Hydrocortisone Sodium Succinate (Solu-Cortef) 50 mg IVP Q8 [facility] Last Admin: 01/19/18 07:12 Dose: 50 mg Meropenem/Sodium Chloride (Merrem Iv 500 Mg/Ns 50 Ml) 500 mg in 50 mls @ 100 mls/hr IVPB Q12 [facility]; Protocol Stop: 01/27/18 10:01 Last Admin: 01/18/18 22:44 Dose: 100 mls/hr Insulin Human Regular (Humulin R) 2 units SC AC [facility] Last Admin: 01/19/18 10:38 Dose: 2 units Insulin Human Regular (Humulin R Med) 0 units SC ACHS [facility]; Protocol Last Admin: 01/18/18 23:06 Dose: 2 units Latanoprost (Xalatan Opht) 0 ml OU HS [facility] Last Admin: 01/18/18 22:44 Dose: 2.5 ml Levothyroxine Sodium (Synthroid) 50 mcg PO 0600 [facility] Last Admin: 01/19/18 07:11 Dose: 50 mcg Metoprolol Tartrate (Lopressor) 25 mg PO BID [facility] Last Admin: 01/16/18 17:45 Dose: 25 mg Pregabalin (Lyrica) 50 mg PO HS [facility] Last Admin: 01/18/18 22:43 Dose: 50 mg Sodium Chloride ([place] Nasal [place]) 0 ml NS Q2 PRN PRN Reason: nasal congestion. Ticagrelor (Brilinta) 90 mg PO BID [facility] Last Admin: 01/18/18 17:59 Dose: 90 mg - Labs Labs: 01/18/18 10:00 01/18/18 10:00 - Constitutional Appears: Non-toxic, No Acute Distress - Head Exam Head Exam: ATRAUMATIC, NORMOCEPHALIC - Eye Exam Eye Exam: EOMI, Normal appearance - ENT Exam ENT Exam: Mucous Membranes Moist - Neck Exam Neck Exam: Normal Inspection - Respiratory Exam Respiratory Exam: Clear to Ausculation Bilateral, NORMAL BREATHING PATTERN. absent: Accessory Muscle Use - Cardiovascular Exam Cardiovascular Exam: RRR, +S1, +S2 - GI/Abdominal Exam GI & Abdominal Exam: Soft, Normal Bowel Sounds - Extremities Exam Additional comments: audible bruit auscultated over AVFistula - Neurological Exam Neurological Exam: Awake Neuro motor strength exam: Left Upper Extremity: 5, Right Upper Extremity: 5, Left Lower Extremity: 5, Right Lower Extremity: 5 - Psychiatric Exam Psychiatric exam: Normal Affect, Normal Mood - Skin Skin Exam: Dry, Intact, Normal Color, Warm Assessment and Plan - Assessment and Plan (Free Text) Assessment: 52 year old male with a past medical history notable for ESRD, CAD with OK 4 months ago, right BKA, and left third digit amputation who presents with melena and diarrhea. His blood cultures are growing gram negative rods in anaerobic bot tle only. Patient is now on Meropenem. Appreciate ID, cardiology, pulmonology recommendations. Plan: 1) Sepsis and anaerobic blood cultures growing gram negative rods x 2. - Appreciate ID recommendations - Wound cultures growing VRE sensitive to Linezolid - Agree with ID recommendations of continuing Meropenem - Solucortef 50 mg q8h IVP 2) ESRD - Continue with dialysis 3) CAD - Continue Brillinta 90 mg BID - Aspirin 81 mg - Metroprolol 25 mg BID - Atorvastatin 80 mg HS - Dr. Erickson consulted 4) DM II - Humulin regular ISS with ACHS fingerstick BG 5) Peripheral Neuropathy - Pregabalin 50 mg HS - Percocet 10 mg q6h PRN for pain 6) Upper respiratory symptoms - Mucinex LA 650 PRN - Flonase PRN 7) Hypothyroidism - Levothyroxine 50 mcg PO daily 8) Right BKA and left middle finger amputation - Wound care needed - Dr. Urrutia consulted, expertise appreciated - Wound cultures from right BKA growing: VRE.faecium, Klebsiella Oxytoca, Serratia Mercescens 9) Hyperlipidemia - Fenofibrate 145 mg PO daily 10) Glaucoma - Latanoprost drops OU Disposition: Guarded Case was reviewed and discussed with attending physician, Dr. Potter <Gallo Potter - Last Filed: 01/19/18 19:40> Subjective - Subjective Subjective: Pt seen and examined. I have reviewed the note of the diagnostic medical sonographer and agree with it. I have discussed the assessment and plan with the resident. I have reviewed the patient's labs and medications. Pt with sepsis. He has a CT that is pending of the R BKA. He may need surgical intervention. ID is following. Pt will continue with ESRD on HD. Pt will have an ISS and coverage. Peripheral neuropathy is stable. CAD and PAD is present. His pain is controlled. Spoke to surgical team. Objective - Vital Signs/Intake and Output Vital Signs (last 24 hours): Temp Pulse Resp BP Pulse Ox 97.4 F L 75 18 84/40 L 99 01/19/18 18:00 01/19/18 18:00 01/19/18 18:00 01/19/18 18:00 01/19/18 06:00 Intake and Output: 01/19/18 01/20/18 18:59 06:59 Intake Total 900 Output Total 0 Balance 900 - Medications Medications: Current Medications Acetaminophen (Tylenol 325mg Tab) 650 mg PO Q6H PRN PRN Reason: Fever >100.4 F Last Admin: 01/18/18 13:18 Dose: 650 mg Albuterol/Ipratropium (Duoneb 3 Mg/0.5 Mg (3 Ml) Ud) 3 ml IH [id number] PRN PRN Reason: Shortness of Breath Arformoterol Tartrate (Brovana) 15 mcg IH [id number] [facility] Last Admin: 01/19/18 08:13 Dose: Not Given Aspirin (Ecotrin) 81 mg PO DAILY [facility] Last Admin: 01/19/18 10:32 Dose: 81 mg Atorvastatin Calcium (Lipitor) 10 mg PO HS [facility] Last Admin: 01/18/18 22:42 Dose: 10 mg Bacitracin (Bacitracin) 1 ea TOP BID [facility] Last Admin: 01/19/18 10:32 Dose: 1 ea Budesonide (Pulmicort Respules) 0.5 mg IH Q12H [facility] Last Admin: 01/19/18 08:13 Dose: Not Given Collagenase (Santyl) 1 gm TOP DAILY [facility] Last Admin: 01/18/18 10:17 Dose: 1 units Famotidine (Pepcid) 20 mg PO [facility] Last Admin: 01/18/18 22:43 Dose: 20 mg Fenofibrate (Tricor) 145 mg PO DAILY [facility] Last Admin: 01/18/18 10:16 Dose: 145 mg Fluticasone Propionate (Flonase) 1 actuation NS DAILY PRN PRN Reason: Nasal congestion Guaifenesin (Mucinex La) 600 mg PO BID PRN PRN Reason: Cough Heparin Sodium (Porcine) (Heparin) 5,000 units SC Q12 [facility]; Protocol Last Admin: 01/19/18 13:18 Dose: 5,000 units Hydrocortisone Sodium Succinate (Solu-Cortef) 50 mg IVP Q8 [facility] Last Admin: 01/19/18 07:12 Dose: 50 mg Meropenem/Sodium Chloride (Merrem Iv 500 Mg/Ns 50 Ml) 500 mg in 50 mls @ 100 mls/hr IVPB Q12 [facility]; Protocol Stop: 01/27/18 10:01 Last Admin: 01/18/18 22:44 Dose: 100 mls/hr Insulin Human Regular (Humulin R) 2 units SC AC [facility] Last Admin: 01/19/18 18:03 Dose: 2 units Insulin Human Regular (Humulin R Med) 0 units SC ACHS [facility]; Protocol Last Admin: 01/19/18 16:30 Dose: 1 units Latanoprost (Xalatan Opht) 0 ml OU HS [facility] Last Admin: 01/18/18 22:44 Dose: 2.5 ml Levothyroxine Sodium (Synthroid) 50 mcg PO 0600 [facility] Last Admin: 01/19/18 07:11 Dose: 50 mcg Metoprolol Tartrate (Lopressor) 25 mg PO BID [facility] Last Admin: 01/16/18 17:45 Dose: 25 mg Pregabalin (Lyrica) 50 mg PO HS [facility] Last Admin: 01/18/18 22:43 Dose: 50 mg Sodium Chloride ([place] Nasal [place]) 0 ml NS Q2 PRN PRN Reason: nasal congestion. Ticagrelor (Brilinta) 90 mg PO BID [facility] Last Admin: 01/18/18 17:59 Dose: 90 mg - Labs Labs: 01/18/18 10:00 01/18/18 10:00
[2018-01-19] MEDS: Insulin Reg-MEDIUM-Coverage SC SCH ×4 (13:13→22:29)
--- NOTE | 2018-01-19 15:37 | CT ---
Date of service: 01/19/2018 PROCEDURE: HISTORY: R BKA with open wound r/o osteo and abscess COMPARISON: TECHNIQUE: FINDINGS: Status post below the knee amputation. 2.5 centimeter ulceration along the lateral margin of the thigh. Circumferential mild soft tissue swelling but no evidence of lucency suspicious for a fluid collection within the stump. No gross bony destructive changes to suggest osteomyelitis IMPRESSION: No gross evidence of osteomyelitis or abscess.
--- NOTE | 2018-01-19 16:04 | PN ---
DATE: 01/19/2018 SUBJECTIVE: The patient was seen earlier today in room 268, bed 2. No fevers, no chills, comfortable. His fever has subsided. PHYSICAL EXAMINATION: VITAL SIGNS: On exam, temperature is 97.4, his T max is 100.3, pulse of 87, respiratory rate of 16. Blood pressure is 102/40. HEENT: Unremarkable. NECK: Supple. LUNGS: Have decreased breath sounds. HEART: Normal S1 and S2. ABDOMINAL: Soft, nontender. LABORATORY EXAMINATION: Reveals the patient to be on meropenem. Microbiology reveals the patient had gram-negative rods in the blood and gram-negative rods in the right leg culture, Klebsiella and moderate growth of Serratia marcescens with heavy growth of VRE. Klebsiella oxytoca is pansensitive with the exception of ampicillin. Serratia marcescens is pansensitive. It is resistant to cefazolin; however, it is sensitive to quinolones. VRE is noted. The identification of gram-negative felix in the blood is not available. ASSESSMENT AND PLAN: A 52-year-old male with history of obesity, BMI of 31, hypertension, diabetes, chronic renal failure on hemodialysis, history of fistula, peripheral vascular disease, coronary artery disease, history of Guerline glabrata, fungemia, negative LASHAWN, now admitted with severe sepsis with Gram-negative felix bacteremia maybe secondary to right stump versus gastrointestinal versus urinary as the source. Vancomycin-resistant Enterococcus in the wound is probable a colonizer not a pathogen. Vancomycin-resistant Enterococcus rarely may cause intraabdominal infection, but not soft tissue infection. So we would choose not to treat the vancomycin-resistant Enterococcus in the wound at this point. We will continue meropenem, pending identification sensitivity after Gram-negative felix in the blood and if it matches one of the Gram-negatives from the wound, we will accept that is the source; however, urinalysis and urine culture should be done. The patient did have a CAT scan of the abdomen and pelvis which was unremarkable as the possible source. Jaspreet Forbes MD
[2018-01-19] MEDS: Collagenase 250 Units/gm Ointment(30 gm) TOP SCH (20:18)
[2018-01-19] MEDS: MEROPENEM 500 MG in NS 500 MG/50 ML BAG IVPB SCH (21:45)
[2018-01-19] MEDS: Latanoprost 2.5 ml Opht Soln OU SCH (23:50)
--- NOTE | 2018-01-20 02:02 | PN ---
DATE: 01/19/2018 PULMONARY PROGRESS NOTE REFERRING PHYSICIAN: Gallo Potter MD SUBJECTIVELY: He is lying in the bed, nursing staff at bedside, being transferred for CAT scan. No headache. No rhinitis. No chest pain. No abdominal pain. Had generalized aches and pains. OBJECTIVE: GENERAL: In no acute distress. VITAL SIGNS: Temperature is 98, heart rate is 75, respiratory rate is 18, blood pressure 84/40, and pulse ox 99% on nasal cannula. HEENT: Moist mucous membrane. Crowded airway. Mallampati score is 4. NECK: Supple. No JVD. LUNGS: Have a fair airflow with few rhonchi. HEART: S1, S2. ABDOMEN: Soft, nontender, and nondistended. EXTREMITIES: Right BKA. Upper extremity edema. NEUROLOGIC: Awake, alert, and follows simple command. HOME MEDICATIONS: He is on Bacitracin ointment to affected area twice a day, Brilinta 90 mg twice a day, Brovana 15 mcg twice a day, DuoNeb every 6 hours around the clock, Ecotrin 81 mg daily, Flonase one spray in each nostril daily, heparin 5000 units every 12 hours, insulin coverage, Lipitor 10 mg at bedtime, metoprolol tartrate 25 mg twice a day, Lyrica 50 mg at bedtime, meropenem 500 mg every 12 hours, Mucinex LA 600 twice a day, nasal spray every 2 hours p.r.n., Pepcid 20 mg at bedtime, Pulmicort inhaled twice a day, Santyl 1 g daily, Solu-Cortef 50 mg every 12 hours, Synthroid 50 mcg daily, TriCor 145 mg daily, and Tylenol p.r.n. LABORATORY DATA: Shows hemoglobin 9.5, hematocrit 29.6, WBC 24,000 from yesterday. Blood sugar this morning 174. Blood culture on admission has Gram-negative rods. Repeat blood culture from yesterday, so far, there is no growth. Has a CT scan of the lower extremities done today, which shows no gross evidence of osteomyelitis or ulcer. IMPRESSION AND PLAN: Septic shock with Gram negative rods in the blood, probably adrenal insufficiency, chronic obstructive lung disease, obstructive sleep apnea syndrome, coronary artery disease, cardiac arrhythmia requiring pacemaker, gastroparesis, severe peripheral vascular disease, status post right below-knee amputation, have sign of ischemic of fingertips, may have Raynaud's phenomenon. I spoke on the telephone with GI services. GI concerns about Solu-Cortef, but the patient has adrenal insufficiency clinically, already blood pressure is ranging from 80 to 90, we will continue low dose of Solu-Cortef. Encouraged CPAP use at night, antibiotics as per Infectious Disease. Gastric and deep venous thrombosis prophylaxes. Thank you and we will follow with you. Jarred Escalera MD
[2018-01-20] MEDS ORDERED: DiphenhydrAMINE 50 mg/ml Inj IVP STA (03:29)
[2018-01-20] MEDS: Levothyroxine 25 MCG TAB PO SCH (06:19)
[2018-01-20] MEDS: Budesonide 0.5 mg/2 ml Inhal Susp UD IH SCH ×2 (07:56→18:55)
[2018-01-20] MEDS: Arformoterol 15 mcg/2 ml Inh Sol IH SCH ×2 (07:56→18:55)
[2018-01-20] MEDS: Albuterol-Ipratrop 3 mg / 0.5 (3 ml) UD IH PRN (07:56)
--- NOTE | 2018-01-20 09:29 | CP.PCM.PN ---
Subjective - Date & Time of Evaluation Date of Evaluation: 01/20/18 Time of Evaluation: 06:45 - Subjective Subjective: Awake, alert, no distress Reason for consultation and follow up:Cardiac evaluation of chest pain,follow up of coronary artery disease, History of PPM, admitted for diarrhea Seen and examined by me and Dr. Erickson Objective - Vital Signs/Intake and Output Vital Signs (last 24 hours): Temp Pulse Resp BP Pulse Ox 97.6 F 89 18 118/68 98 01/20/18 06:00 01/20/18 06:00 01/20/18 06:00 01/20/18 06:00 01/20/18 06:00 Intake and Output: 01/20/18 01/20/18 06:59 18:59 Intake Total 300 Balance 300 - Medications Medications: Current Medications Acetaminophen (Tylenol 325mg Tab) 650 mg PO Q6H PRN PRN Reason: Fever >100.4 F Last Admin: 01/19/18 20:29 Dose: 650 mg Albuterol/Ipratropium (Duoneb 3 Mg/0.5 Mg (3 Ml) Ud) 3 ml IH [id number] PRN PRN Reason: Shortness of Breath Last Admin: 01/20/18 07:56 Dose: 3 ml Arformoterol Tartrate (Brovana) 15 mcg IH [id number] [facility] Last Admin: 01/20/18 07:56 Dose: 15 mcg Aspirin (Ecotrin) 81 mg PO DAILY [facility] Last Admin: 01/19/18 10:32 Dose: 81 mg Atorvastatin Calcium (Lipitor) 10 mg PO HS [facility] Last Admin: 01/19/18 21:44 Dose: 10 mg Bacitracin (Bacitracin) 1 ea TOP BID [facility] Last Admin: 01/19/18 20:14 Dose: 1 ea Budesonide (Pulmicort Respules) 0.5 mg IH Q12H [facility] Last Admin: 01/20/18 07:56 Dose: 0.5 mg Collagenase (Santyl) 1 gm TOP DAILY [facility] Last Admin: 01/19/18 20:18 Dose: Not Given Famotidine (Pepcid) 20 mg PO HS [facility] Last Admin: 01/19/18 21:46 Dose: 20 mg Fenofibrate (Tricor) 145 mg PO DAILY [facility] Last Admin: 01/19/18 10:00 Dose: 145 mg Fluticasone Propionate (Flonase) 1 actuation NS DAILY PRN PRN Reason: Nasal congestion Guaifenesin (Mucinex La) 600 mg PO BID PRN PRN Reason: Cough Heparin Sodium (Porcine) (Heparin) 5,000 units SC Q12 [facility]; Protocol Last Admin: 01/19/18 21:47 Dose: 5,000 units Hydrocortisone Sodium Succinate (Solu-Cortef) 50 mg IVP Q8 [facility] Last Admin: 01/20/18 06:14 Dose: 50 mg Meropenem/Sodium Chloride (Merrem Iv 500 Mg/Ns 50 Ml) 500 mg in 50 mls @ 100 mls/hr IVPB Q12 [facility]; Protocol Stop: 01/27/18 10:01 Last Admin: 01/19/18 21:45 Dose: 100 mls/hr Insulin Human Regular (Humulin R) 2 units SC AC [facility] Last Admin: 01/19/18 18:03 Dose: 2 units Insulin Human Regular (Humulin R Med) 0 units SC ACHS [facility]; Protocol Last Admin: 01/19/18 22:29 Dose: 4 units Latanoprost (Xalatan Opht) 0 ml OU HS [facility] Last Admin: 01/19/18 23:50 Dose: 2.5 ml Levothyroxine Sodium (Synthroid) 50 mcg PO 0600 [facility] Last Admin: 01/20/18 06:19 Dose: Not Given Metoprolol Tartrate (Lopressor) 25 mg PO BID [facility] Last Admin: 01/16/18 17:45 Dose: 25 mg Pregabalin (Lyrica) 50 mg PO HS [facility] Last Admin: 01/19/18 21:44 Dose: 50 mg Sodium Chloride ([place] Nasal [place]) 0 ml NS Q2 PRN PRN Reason: nasal congestion. Ticagrelor (Brilinta) 90 mg PO BID [facility] Last Admin: 01/19/18 18:00 Dose: 90 mg - Labs Labs: 01/18/18 10:00 01/18/18 10:00 - Constitutional Appears: Non-toxic, No Acute Distress - Head Exam Head Exam: NORMAL INSPECTION, NORMOCEPHALIC - ENT Exam ENT Exam: Mucous Membranes Dry - Respiratory Exam Respiratory Exam: Decreased Breath Sounds, NORMAL BREATHING PATTERN - Cardiovascular Exam Cardiovascular Exam: REGULAR RHYTHM, +S1, +S2 Additional comments: no JVD, PPM Telemetry NSR 70's - GI/Abdominal Exam GI & Abdominal Exam: Distended, Soft, Normal Bowel Sounds - Exam Additional comments: ESRD hemodialysis 3 x a week - Extremities Exam Additional comments: right below knee amputation Left AV shunt positive bruit left middle finger amputation - Neurological Exam Neurological Exam: Alert, Awake - Psychiatric Exam Psychiatric exam: Normal Affect - Skin Skin Exam: Dry, Normal Color, Warm Assessment and Plan - Assessment and Plan (Free Text) Assessment: A 52 year old male obese who came in to the ER due to diarrhea for the past week prior to admission. History of very brittle insulin dependent diabetes mellitus, diabetic neuropathy,diabetic retinopathy,nephropathy,end stage renal disease, on hemodialysis 3x a week, left arm AV shunt /fistula, hypertension, hyperlipidemia,TIA, coronary artery disease with stents,resistant to Plavix, on Brilinta. severe peripheral vascular disease, post right below knee amputation, left middle finger amputation,TIA, PPM for sick sinus syndrome. subdural hematoma due to fall, COPD, pancreatitis. No evidence of myocardial infarction. Troponin negative, Positive for C-difficile.Right BKA stump positive for VRE. Blood culture from 01/17 positive for serratia, repeat blood culture done 01/18/18. Plan: On contact isolation Positive for C-difficile.right BKA stump positive for VRE, blood culture positive for serratia Continue IV antibiotics as ordered by ID Repeat blood culture done on 01/18 No distress Blood pressure stable Heart rate stable Cardiac status stable Control glucose On ASA 81 mg daily,Lipitor 80 mg daily, Tricor 145 mg daily, Heparin 5000 units SC every 12 hours, Solucortef 100 mg IV every 8 hours Synthroid 50 mcg daily,Brilinta 90 mg BID Continue current treatment Continue current medications Chart reviewed Will follow up Plan and treatment discussed with Dr. Erickson
--- NOTE | 2018-01-20 09:44 | CP.PCM.PN ---
<LadanhenryManuel - Last Filed: 01/20/18 09:40> Subjective - Date & Time of Evaluation Date of Evaluation: 01/20/18 Time of Evaluation: 09:40 - Subjective Subjective: Patient is oriented however is somewhat altered, inappropriate from when I saw him last night. I discussed with nurse, and she says he goes in and out of appr opriateness and that is his baseline. I asked her to discuss with primary, who knows patient better. Patient is HDS and NAD. He states he is hungry. No reports of diarrhea. Blood and wound cultures growing Serratia Marcescens. Objective - Vital Signs/Intake and Output Vital Signs (last 24 hours): Temp Pulse Resp BP Pulse Ox 97.6 F 89 18 118/68 98 01/20/18 06:00 01/20/18 06:00 01/20/18 06:00 01/20/18 06:00 01/20/18 06:00 Intake and Output: 01/20/18 01/20/18 06:59 18:59 Intake Total 300 Balance 300 - Medications Medications: Current Medications Acetaminophen (Tylenol 325mg Tab) 650 mg PO Q6H PRN PRN Reason: Fever >100.4 F Last Admin: 01/19/18 20:29 Dose: 650 mg Albuterol/Ipratropium (Duoneb 3 Mg/0.5 Mg (3 Ml) Ud) 3 ml IH [id number] PRN PRN Reason: Shortness of Breath Last Admin: 01/20/18 07:56 Dose: 3 ml Arformoterol Tartrate (Brovana) 15 mcg IH [id number] [facility] Last Admin: 01/20/18 07:56 Dose: 15 mcg Aspirin (Ecotrin) 81 mg PO DAILY [facility] Last Admin: 01/19/18 10:32 Dose: 81 mg Atorvastatin Calcium (Lipitor) 10 mg PO HS [facility] Last Admin: 01/19/18 21:44 Dose: 10 mg Bacitracin (Bacitracin) 1 ea TOP BID [facility] Last Admin: 01/19/18 20:14 Dose: 1 ea Budesonide (Pulmicort Respules) 0.5 mg IH Q12H [facility] Last Admin: 01/20/18 07:56 Dose: 0.5 mg Collagenase (Santyl) 1 gm TOP DAILY [facility] Last Admin: 01/19/18 20:18 Dose: Not Given Famotidine (Pepcid) 20 mg PO HS [facility] Last Admin: 01/19/18 21:46 Dose: 20 mg Fenofibrate (Tricor) 145 mg PO DAILY [facility] Last Admin: 01/19/18 10:00 Dose: 145 mg Fluticasone Propionate (Flonase) 1 actuation NS DAILY PRN PRN Reason: Nasal congestion Guaifenesin (Mucinex La) 600 mg PO BID PRN PRN Reason: Cough Heparin Sodium (Porcine) (Heparin) 5,000 units SC Q12 [facility]; Protocol Last Admin: 01/19/18 21:47 Dose: 5,000 units Hydrocortisone Sodium Succinate (Solu-Cortef) 50 mg IVP Q8 [facility] Last Admin: 01/20/18 06:14 Dose: 50 mg Meropenem/Sodium Chloride (Merrem Iv 500 Mg/Ns 50 Ml) 500 mg in 50 mls @ 100 mls/hr IVPB Q12 [facility]; Protocol Stop: 01/27/18 10:01 Last Admin: 01/19/18 21:45 Dose: 100 mls/hr Insulin Human Regular (Humulin R) 2 units SC AC [facility] Last Admin: 01/19/18 18:03 Dose: 2 units Insulin Human Regular (Humulin R Med) 0 units SC ACHS [facility]; Protocol Last Admin: 01/19/18 22:29 Dose: 4 units Latanoprost (Xalatan Opht) 0 ml OU HS [facility] Last Admin: 01/19/18 23:50 Dose: 2.5 ml Levothyroxine Sodium (Synthroid) 50 mcg PO 0600 [facility] Last Admin: 01/20/18 06:19 Dose: Not Given Metoprolol Tartrate (Lopressor) 25 mg PO BID [facility] Last Admin: 01/16/18 17:45 Dose: 25 mg Pregabalin (Lyrica) 50 mg PO HS [facility] Last Admin: 01/19/18 21:44 Dose: 50 mg Sodium Chloride ([place] Nasal Floral) 0 ml NS Q2 PRN PRN Reason: nasal congestion. Ticagrelor (Brilinta) 90 mg PO BID [facility] Last Admin: 01/19/18 18:00 Dose: 90 mg - Labs Labs: 01/18/18 10:00 01/18/18 10:00 - Constitutional Appears: Non-toxic, No Acute Distress, Chronically Ill - Head Exam Head Exam: NORMAL INSPECTION - Eye Exam Eye Exam: EOMI, Normal appearance - ENT Exam ENT Exam: Mucous Membranes Moist - Respiratory Exam Respiratory Exam: Clear to Ausculation Bilateral, NORMAL BREATHING PATTERN - Cardiovascular Exam Cardiovascular Exam: REGULAR RHYTHM, +S1, +S2, Murmur - GI/Abdominal Exam GI & Abdominal Exam: Soft, Normal Bowel Sounds. absent: Tenderness - Extremities Exam Extremities Exam: Normal Inspection - Neurological Exam Neurological Exam: Altered, Awake, Oriented x3 - Psychiatric Exam Psychiatric exam: absent: Normal Affect, Normal Mood - Skin Skin Exam: Dry, Normal Color Assessment and Plan - Assessment and Plan (Free Text) Assessment: 52 y/o Male w/ PMHx of CHF, HTN, BPH, CVA, DM2, anemia, ESRD on HD (T, Th, Mon), Neuropathy and recent R BKA with a PSHx of R BKA, cornea transplant, cholecystectomy presenting to the emergency department complaining of severe diarrhea intermittent for the past 2 weeks, associated with diffuse abdominal pain: Diarrhea, Resolved -currently afebrile, white count increased possibly due to hydrocortisone vs infectious process -cdiff toxin and antigen negative -vre screen negative -CT abd/pelvis po contrast 01/16: * Small left pleural effusion and consolidation at left lung base. Mild ascites. No acute intra-abdominal findings. No evidence of enteritis or colitis -blood cx growing serratia marcescens and right leg wound cx growing klebsiella, serratia and VRE -meropenem 500mg ivp q12h per ID -Recommend caution with steroids in bacteremia <Jacquelin Ahn V - Last Filed: 01/20/18 19:50> Objective - Vital Signs/Intake and Output Vital Signs (last 24 hours): Temp Pulse Resp BP Pulse Ox 98.1 F 87 19 124/69 100 01/20/18 12:00 01/20/18 18:00 01/20/18 12:00 01/20/18 18:00 01/20/18 18:00 - Medications Medications: Current Medications Acetaminophen (Tylenol 325mg Tab) 650 mg PO Q6H PRN PRN Reason: Fever >100.4 F Last Admin: 01/19/18 20:29 Dose: 650 mg Albuterol/Ipratropium (Duoneb 3 Mg/0.5 Mg (3 Ml) Ud) 3 ml IH [id number] PRN PRN Reason: Shortness of Breath Last Admin: 01/20/18 07:56 Dose: 3 ml Arformoterol Tartrate (Brovana) 15 mcg IH [id number] [facility] Last Admin: 01/20/18 18:55 Dose: 15 mcg Aspirin (Ecotrin) 81 mg PO DAILY [facility] Last Admin: 01/20/18 09:48 Dose: Not Given Atorvastatin Calcium (Lipitor) 10 mg PO HS [facility] Last Admin: 01/19/18 21:44 Dose: 10 mg Bacitracin (Bacitracin) 1 ea TOP BID [facility] Last Admin: 01/20/18 18:23 Dose: 1 ea Budesonide (Pulmicort Respules) 0.5 mg IH Q12H [facility] Last Admin: 01/20/18 18:55 Dose: 0.5 mg Collagenase (Santyl) 1 gm TOP DAILY [facility] Last Admin: 01/20/18 13:42 Dose: 1 applic Famotidine (Pepcid) 20 mg PO HS [facility] Last Admin: 01/19/18 21:46 Dose: 20 mg Fenofibrate (Tricor) 145 mg PO DAILY [facility] Last Admin: 01/20/18 09:47 Dose: Not Given Fluticasone Propionate (Flonase) 1 actuation NS DAILY PRN PRN Reason: Nasal congestion Guaifenesin (Mucinex La) 600 mg PO BID PRN PRN Reason: Cough Heparin Sodium (Porcine) (Heparin) 5,000 units SC Q12 [facility]; Protocol Last Admin: 01/20/18 13:41 Dose: 5,000 units Hydrocortisone Sodium Succinate (Solu-Cortef) 50 mg IVP Q8 [facility] Last Admin: 01/20/18 14:00 Dose: 50 mg Meropenem/Sodium Chloride (Merrem Iv 500 Mg/Ns 50 Ml) 500 mg in 50 mls @ 100 mls/hr IVPB Q12 [facility]; Protocol Stop: 01/27/18 10:01 Last Admin: 01/20/18 13:41 Dose: 100 mls/hr Insulin Human Regular (Humulin R) 2 units SC AC [facility] Last Admin: 01/20/18 18:23 Dose: Not Given Insulin Human Regular (Humulin R Med) 0 units SC ACHS [facility]; Protocol Last Admin: 01/20/18 18:22 Dose: Not Given Latanoprost (Xalatan Opht) 0 ml OU HS [facility] Last Admin: 01/19/18 23:50 Dose: 2.5 ml Levothyroxine Sodium (Synthroid) 50 mcg PO 0600 [facility] Last Admin: 01/20/18 06:19 Dose: Not Given Metoprolol Tartrate (Lopressor) 25 mg PO BID [facility] Last Admin: 01/16/18 17:45 Dose: 25 mg Pregabalin (Lyrica) 50 mg PO HS [facility] Last Admin: 01/19/18 21:44 Dose: 50 mg Sodium Chloride ([place] Nasal Flor[place]) 0 ml NS Q2 PRN PRN Reason: nasal congestion. Ticagrelor (Brilinta) 90 mg PO BID [facility] Last Admin: 01/20/18 18:23 Dose: Not Given - Labs Labs: 01/18/18 10:00 01/18/18 10:00 Attending/Attestation - Attestation I have personally seen and examined this patient.: Yes I have fully participated in the care of the patient.: Yes I have reviewed all pertinent clinical information, including history, physical exam and plan: Yes Notes (Text): This is an addendum to GI progress report dictated by the GI Fellow.The patient was seen and examined earlier. Medical records, lab studies, imagings were reviewed. Last 24 hours events reviewed. Agreed with the above treatment plan as outlined in GI Fellow 's notes with the addition of the following diarrhea has improved Severity sepsis secondary to stump cellulitis. Abdomen soft mild tenderness on deep palpationa discussed with Patient was on steroid on long-term basis The patient is on low-dose hydrocortisone now in spite of gram-negative bacteremia to prevent Tracy's crisis in view of the long-term steroid dependency and sudden withdrawal will precipitate crisis 01/20/18 19:45
[2018-01-20] MEDS: Insulin Reg-MEDIUM-Coverage SC SCH ×4 (09:48→22:10)
[2018-01-20] MEDS: Insulin Regular 1 UNITS/0.01 ML ML SC SCH ×3 (09:48→18:23)
--- NOTE | 2018-01-20 13:15 | PN ---
DATE: 01/20/2018 SUBJECTIVE: The patient is in bed, in no acute distress, nontoxic. No fevers. PHYSICAL EXAMINATION: VITAL SIGNS: Temperature is 97, blood pressure is 118/60 and respiratory rate of 18. HEENT: Unremarkable. NECK: Supple. LUNGS: Have decreased breath sounds. HEART: Normal S1 and S2. ABDOMEN: Soft and nontender. LABORATORY EXAMINATION: Reveals a white count of 24,000, hemoglobin of 9 and platelets of 104. Chemistries are noted and creatinine is 3.7. Serology is noted. Microbiology reveals right leg is Klebsiella oxytoca, Serratia is noted. Serratia in the blood and in the leg. Serratia is pansensitive. VRE in the stump. Repeat blood cultures are no growth. Currently, the patient is on meropenem. The patient is also on Solu-Cortef, which would explain the increase in white count now. CT of the lower extremity was read by Dr. Vail. No evidence of osteomyelitis. ASSESSMENT AND PLAN: A 52-year-old male seen earlier today with a body mass index of 31 and obesity, diabetes, chronic renal failure on hemodialysis, history of fistula, peripheral vascular disease, coronary artery disease, history of Guerline glabrata, fungemia with a negative transesophageal echocardiography, who was admitted now with #1 is severe sepsis with Serratia bacteremia secondary to the right stump cellulitis. No osteomyelitis based on CAT scan. Vancomycin-resistant Enterococcus most likely a colonizer not a pathogen in the wound. The patient was allergic to quinolones and penicillin. Currently on meropenem, day #3 of 10-14 days. We have no other options. Meropenem is the drug of choice here since the patient is allergic to penicillin, allergic to moxifloxacin. Day #3 of 10 days of meropenem. Serratia bacteremia and severe sepsis. Overall prognosis quite poor. If the Serratia recurs, intravascular devices may be responsible for. At this time, we will complete the meropenem therapy. Jaspreet Forbes MD
[2018-01-20] MEDS: Bacitracin 500 Units/gm Oint Foilpak UD TOP SCH ×2 (13:40→18:23)
[2018-01-20] MEDS: MEROPENEM 500 MG in NS 500 MG/50 ML BAG IVPB SCH ×2 (13:41→22:34)
[2018-01-20] MEDS: Collagenase 250 Units/gm Ointment(30 gm) TOP SCH (13:42)
--- NOTE | 2018-01-20 15:46 | CARD ---
APPROVED REPORT Date of service: 01/20/2018 EKG Measurement Heart [id number] <Conclusion> Electronic ventricular pacemaker
--- NOTE | 2018-01-20 17:12 | PN ---
DATE: SUBJECTIVE: The patient is 52 years old seen and examined, seemed to be confused, disoriented, agitated. According to nurse, he was given Ativan and Benadryl a little earlier, looks confused, complained of abdominal pain. According to nurse, he has been talking name. PHYSICAL EXAMINATION: VITAL SIGNS: Patient is afebrile, pulse 89, respirations 20, blood pressure is not available. HEENT: Patient has symmetrical face, nonicteric sclerae, pink conjunctivae. LUNGS: Bilateral fair airflow. No rhonchi or crackles. HEART: S1 and S2 audible. ABDOMEN: Soft, obese. No palpable tenderness. EXTREMITIES: Left stump is in the dressing, has infection. LABORATORY DATA: WBC 24.3, hemoglobin 9.5, hematocrit 29.6, platelets of 104. Chemistry: Blood sugar is 321. Blood cultures drawn on 01/17/2018 positive for Serratia marcescens. Repeat blood cultures are negative. ASSESSMENT: 1. End-stage renal disease on hemodialysis. 2. Left stump . 3. Status post bacteremia. 4. Congestive heart failure. 5. Hypertension. 6. History of cerebrovascular accident. 7. Insulin-dependent diabetes. 8. Chronic anemia. 9. Leukocytosis. 10. Status post below-knee amputation. 11. Diarrhea, but stool for Clostridium difficile is negative. PLAN: Plan is to continue patient on nebulizer treatment, he is on DVT prophylaxis. Currently, the patient is on meropenem. Repeat blood cultures are negative. Patient is currently on Solu-Cortef because of adrenal insufficiency. We will follow up CBC and CMP in the a.m. Care discussed with the patient's nurse. Sanjay Castillo MD
--- NOTE | 2018-01-20 17:13 | PN ---
DATE: 01/20/2018 SEX OF THE PATIENT: Male. REASON FOR CONSULTATION AND FOLLOWUP: Cardiac evaluation, chest pain, coronary artery disease, sepsis, diarrhea, status post PTCA. This note is in addition to note dictated by nurse practitioner, Karlie Moreau APN. The patient complains of chest pain. EKG was done. Some element was reproducible. There were no acute ST-T changes noted. Blood culture on admission grow Escherichia, but on 01/17/2018, repeat blood culture was negative. RECOMMENDATIONS: Continue antibiotic as per ID; history of CAD; history of PAD, status post right amputation; amputation of toe; end-stage renal disease, on dialysis; history of pacemaker. Overall, the patient's condition is critical. Long-term prognosis is extremely guarded, discussed with the family yesterday. Thank you, Dr. Castillo, for providing us the opportunity in taking care of the patient, Jason Berger. Jarred Erickson MD
[2018-01-20] MEDS: Latanoprost 2.5 ml Opht Soln OU SCH (22:52)
[2018-01-21] MEDS: Levothyroxine 25 MCG TAB PO SCH (06:32)
--- NOTE | 2018-01-21 08:04 | CP.PCM.PN ---
Subjective - Date & Time of Evaluation Date of Evaluation: 01/21/18 Time of Evaluation: 06:35 - Subjective Subjective: Awake, alert, no distress, disoriented Reason for consultation and follow up:Cardiac evaluation of chest pain,follow up of coronary artery disease, History of PPM, admitted for diarrhea Seen and examined by me and Dr. Erickson Objective - Vital Signs/Intake and Output Vital Signs (last 24 hours): Temp Pulse Resp BP Pulse Ox 97.8 F 91 H 18 102/58 L 100 01/21/18 06:00 01/21/18 06:00 01/21/18 06:00 01/21/18 06:00 01/21/18 06:00 Intake and Output: 01/21/18 01/21/18 06:59 18:59 Intake Total Output Total Balance - Medications Medications: Current Medications Acetaminophen (Tylenol 325mg Tab) 650 mg PO Q6H PRN PRN Reason: Fever >100.4 F Last Admin: 01/19/18 20:29 Dose: 650 mg Albuterol/Ipratropium (Duoneb 3 Mg/0.5 Mg (3 Ml) Ud) 3 ml IH [id number] PRN PRN Reason: Shortness of Breath Last Admin: 01/20/18 07:56 Dose: 3 ml Arformoterol Tartrate (Brovana) 15 mcg IH [id number] [facility] Last Admin: 01/20/18 18:55 Dose: 15 mcg Aspirin (Ecotrin) 81 mg PO DAILY [facility] Last Admin: 01/20/18 09:48 Dose: Not Given Atorvastatin Calcium (Lipitor) 10 mg PO HS [facility] Last Admin: 01/20/18 22:32 Dose: 10 mg Bacitracin (Bacitracin) 1 ea TOP BID [facility] Last Admin: 01/20/18 18:23 Dose: 1 ea Budesonide (Pulmicort Respules) 0.5 mg IH Q12H [facility] Last Admin: 01/20/18 18:55 Dose: 0.5 mg Collagenase (Santyl) 1 gm TOP DAILY [facility] Last Admin: 01/20/18 13:42 Dose: 1 applic Famotidine (Pepcid) 20 mg PO HS [facility] Last Admin: 01/20/18 22:32 Dose: 20 mg Fenofibrate (Tricor) 145 mg PO DAILY [facility] Last Admin: 01/20/18 09:47 Dose: Not Given Fluticasone Propionate (Flonase) 1 actuation NS DAILY PRN PRN Reason: Nasal congestion Guaifenesin (Mucinex La) 600 mg PO BID PRN PRN Reason: Cough Heparin Sodium (Porcine) (Heparin) 5,000 units SC Q12 [facility]; Protocol Last Admin: 01/20/18 22:36 Dose: 5,000 units Hydrocortisone Sodium Succinate (Solu-Cortef) 50 mg IVP Q12 [facility] Last Admin: 01/20/18 22:36 Dose: 50 mg Meropenem/Sodium Chloride (Merrem Iv 500 Mg/Ns 50 Ml) 500 mg in 50 mls @ 100 mls/hr IVPB Q12 [facility]; Protocol Stop: 01/27/18 10:01 Last Admin: 01/20/18 22:34 Dose: 100 mls/hr Insulin Human Regular (Humulin R) 2 units SC AC [facility] Last Admin: 01/20/18 18:23 Dose: Not Given Insulin Human Regular (Humulin R Med) 0 units SC ACHS [facility]; Protocol Last Admin: 01/20/18 22:10 Dose: Not Given Latanoprost (Xalatan Opht) 0 ml OU HS [facility] Last Admin: 01/20/18 22:52 Dose: 2.5 ml Levothyroxine Sodium (Synthroid) 50 mcg PO 0600 [facility] Last Admin: 01/21/18 06:32 Dose: 50 mcg Metoprolol Tartrate (Lopressor) 25 mg PO BID [facility] Last Admin: 01/16/18 17:45 Dose: 25 mg Sodium Chloride ([place] Nasal [place]) 0 ml NS Q2 PRN PRN Reason: nasal congestion. Ticagrelor (Brilinta) 90 mg PO BID [facility] Last Admin: 01/20/18 18:23 Dose: Not Given - Labs Labs: 01/18/18 10:00 01/18/18 10:00 - Constitutional Appears: Non-toxic, No Acute Distress - ENT Exam ENT Exam: Mucous Membranes Dry - Respiratory Exam Respiratory Exam: Decreased Breath Sounds, Clear to Ausculation Bilateral, NORMAL BREATHING PATTERN - Cardiovascular Exam Cardiovascular Exam: +S1, +S2 Additional comments: PPM Telemetry NSR 70's - GI/Abdominal Exam GI & Abdominal Exam: Distended, Soft, Hypoactive Bowel Sounds - Exam Additional comments: ESRD on hemodialysis 3x a week - Extremities Exam Additional comments: right below knee amputation,stump with dressing left middle finger amputation left AV shunt with positive bruit - Neurological Exam Neurological Exam: Alert, Awake Additional comments: disoriented - Psychiatric Exam Psychiatric exam: Normal Affect, Normal Mood - Skin Skin Exam: Dry, Normal Color, Warm Assessment and Plan - Assessment and Plan (Free Text) Assessment: 52 year old male obese who came in to the ER due to diarrhea for the past week prior to admission. History of very brittle insulin dependent diabetes mellitus, diabetic neuropathy,diabetic retinopathy,nephropathy,end stage renal disease, on hemodialysis 3x a week, left arm AV shunt /fistula, hypertension, hyperlipidemia,TIA, coronary artery disease with stents,resistant to Plavix, on Brilinta. severe peripheral vascular disease, post right below knee amputation, left middle finger amputation,TIA, PPM for sick sinus syndrome. subdural hematoma due to fall, COPD, pancreatitis. No evidence of myocardial infarction. Troponin negative, Positive for C-difficile.Right BKA stump positive for VRE. Blood culture from 01/17 positive for serratia, repeat blood culture done 01/18/18, so far after 48 hours no growth. Plan: Awake,no distress On contact isolation Positive for C-difficile, right BKA stump positive for VRE, Blood culture positive for serratia Repeat blood culture done on 01/18, so far negative after 48 hours Continue IV antibiotics as ordered by ID Blood pressure stable Heart rate stable Cardiac status stable Control glucose On ASA 81 mg daily,Lipitor 80 mg daily, Tricor 145 mg daily, Heparin 5000 units SC every 12 hours, Solucortef 100 mg IV every 8 hours Synthroid 50 mcg daily,Brilinta 90 mg BID Continue current treatment Continue current medications Chart reviewed Will follow up Plan and treatment discussed with Dr. Erickson
[2018-01-21] MEDS: Arformoterol 15 mcg/2 ml Inh Sol IH SCH ×2 (08:12→19:38)
[2018-01-21] MEDS: Albuterol-Ipratrop 3 mg / 0.5 (3 ml) UD IH PRN ×2 (08:12→13:23)
[2018-01-21] MEDS: Budesonide 0.5 mg/2 ml Inhal Susp UD IH SCH ×2 (08:13→19:39)
[2018-01-21 08:25] LABS: BASO # 0.01 K/mm3 (0.0-2.0); BASO % 0.1 % (0.0-3.0); GRAN # 16.3 (1.4-6.5); GRAN % 88.9 % (50.0-68.0); HEMOGLOBIN 9.9 g/dL (14.0-18.0); LYMPH % 5.4 % (22.0-35.0); MEAN CELL VOLUME 94.5 fl (80.0-105.0); MEAN CORPUSCULAR HEMOGLOBIN 30.4 pg (25.0-35.0); MEAN CORPUSCULAR HGB CONC 32.1 g/dl (31.0-37.0); MEAN PLATELET VOLUME 13.1 fl (7.0-11.0); MONO % 5.6 % (1.0-6.0); RBC 3.26 10^6/uL (3.5-6.1); RED CELL DISTRIBUTION WIDTH 17.7 % (11.5-14.5); WHITE BLOOD COUNT 18.3 10^3/uL (4.5-11.0)
[2018-01-21] MEDS: Insulin Regular 1 UNITS/0.01 ML ML SC SCH ×3 (08:55→17:41)
[2018-01-21] MEDS: Insulin Reg-MEDIUM-Coverage SC SCH ×4 (08:56→21:57)
[2018-01-21 08:57] LABS: ALB/GLOB RATIO 0.6 (1.1-1.8); ALBUMIN 2.5 g/dL (3.0-4.8); CALCIUM 7.9 mg/dL (8.4-10.5)
[2018-01-21] MEDS ORDERED: Sod Polystyrene Sulf 15 gm/60 ml Susp PO ONE (10:21)
[2018-01-21] MEDS: Bacitracin 500 Units/gm Oint Foilpak UD TOP SCH ×2 (10:58→17:40)
[2018-01-21] MEDS: MEROPENEM 500 MG in NS 500 MG/50 ML BAG IVPB SCH ×2 (11:12→21:22)
--- NOTE | 2018-01-21 11:38 | CP.PCM.PN ---
<Manuel Lay - Last Filed: 01/21/18 11:36> Subjective - Date & Time of Evaluation Date of Evaluation: 01/21/18 Time of Evaluation: 11:36 - Subjective Subjective: Appears better than yesterday. No acute changes. No abdominal pain. No reported diarrhea. Objective - Vital Signs/Intake and Output Vital Signs (last 24 hours): Temp Pulse Resp BP Pulse Ox 97.8 F 91 H 18 102/58 L 100 01/21/18 06:00 01/21/18 06:00 01/21/18 06:00 01/21/18 06:00 01/21/18 06:00 Intake and Output: 01/21/18 01/21/18 06:59 18:59 Intake Total Output Total Balance - Medications Medications: Current Medications Acetaminophen (Tylenol 325mg Tab) 650 mg PO Q6H PRN PRN Reason: Fever >100.4 F Last Admin: 01/19/18 20:29 Dose: 650 mg Albuterol/Ipratropium (Duoneb 3 Mg/0.5 Mg (3 Ml) Ud) 3 ml IH [id number] PRN PRN Reason: Shortness of Breath Last Admin: 01/21/18 08:12 Dose: 3 ml Arformoterol Tartrate (Brovana) 15 mcg IH [id number] [facility] Last Admin: 01/21/18 08:12 Dose: 15 mcg Aspirin (Ecotrin) 81 mg PO DAILY [facility] Last Admin: 01/21/18 10:56 Dose: 81 mg Atorvastatin Calcium (Lipitor) 10 mg PO HS [facility] Last Admin: 01/20/18 22:32 Dose: 10 mg Bacitracin (Bacitracin) 1 ea TOP BID [facility] Last Admin: 01/21/18 10:58 Dose: 1 ea Budesonide (Pulmicort Respules) 0.5 mg IH Q12H [facility] Last Admin: 01/21/18 08:13 Dose: 0.5 mg Collagenase (Santyl) 1 gm TOP DAILY [facility] Last Admin: 01/20/18 13:42 Dose: 1 applic Famotidine (Pepcid) 20 mg PO HS [facility] Last Admin: 01/20/18 22:32 Dose: 20 mg Fenofibrate (Tricor) 145 mg PO DAILY [facility] Last Admin: 01/21/18 10:56 Dose: 145 mg Fluticasone Propionate (Flonase) 1 actuation NS DAILY PRN PRN Reason: Nasal congestion Guaifenesin (Mucinex La) 600 mg PO BID PRN PRN Reason: Cough Heparin Sodium (Porcine) (Heparin) 5,000 units SC Q12 [facility]; Protocol Last Admin: 01/21/18 10:56 Dose: 5,000 units Hydrocortisone Sodium Succinate (Solu-Cortef) 50 mg IVP Q12 [facility] Last Admin: 01/20/18 22:36 Dose: 50 mg Meropenem/Sodium Chloride (Merrem Iv 500 Mg/Ns 50 Ml) 500 mg in 50 mls @ 100 mls/hr IVPB Q12 [facility]; Protocol Stop: 01/27/18 10:01 Last Admin: 01/21/18 11:12 Dose: 100 mls/hr Insulin Human Regular (Humulin R) 2 units SC AC [facility] Last Admin: 01/21/18 08:55 Dose: 2 units Insulin Human Regular (Humulin R Med) 0 units SC ACHS [facility]; Protocol Last Admin: 01/21/18 08:56 Dose: 10 units Latanoprost (Xalatan Opht) 0 ml OU HS [facility] Last Admin: 01/20/18 22:52 Dose: 2.5 ml Levothyroxine Sodium (Synthroid) 50 mcg PO 0600 [facility] Last Admin: 01/21/18 06:32 Dose: 50 mcg Metoprolol Tartrate (Lopressor) 25 mg PO BID [facility] Last Admin: 01/16/18 17:45 Dose: 25 mg Sodium Chloride ([place] Nasal [place]) 0 ml NS Q2 PRN PRN Reason: nasal congestion. Ticagrelor (Brilinta) 90 mg PO BID [facility] Last Admin: 01/21/18 11:03 Dose: 90 mg - Labs Labs: 01/21/18 08:00 01/21/18 08:00 - Constitutional Appears: Non-toxic, No Acute Distress - Eye Exam Eye Exam: EOMI, Normal appearance - ENT Exam ENT Exam: Mucous Membranes Moist, Normal Exam - Respiratory Exam Respiratory Exam: Clear to Ausculation Bilateral, NORMAL BREATHING PATTERN - Cardiovascular Exam Cardiovascular Exam: REGULAR RHYTHM, Murmur - GI/Abdominal Exam GI & Abdominal Exam: Soft, Normal Bowel Sounds. absent: Tenderness - Neurological Exam Neurological Exam: Alert, Awake, Oriented x3 - Psychiatric Exam Psychiatric exam: Normal Affect, Normal Mood - Skin Skin Exam: Dry, Normal Color Assessment and Plan - Assessment and Plan (Free Text) Assessment: 52 y/o Male w/ PMHx of CHF, HTN, BPH, CVA, DM2, anemia, ESRD on HD (T, Th, Sat), Neuropathy and recent R BKA with a PSHx of R BKA, cornea transplant, cholecystectomy presenting to the emergency department complaining of severe diarrhea intermittent for the past 2 weeks, associated with diffuse abdominal pain: Diarrhea, Resolved -currently afebrile, white count increased possibly due to hydrocortisone vs infectious process -cdiff toxin and antigen negative -vre screen negative -CT abd/pelvis po contrast 01/16: * Small left pleural effusion and consolidation at left lung base. Mild ascites. No acute intra-abdominal findings. No evidence of enteritis or colitis -blood cx growing serratia marcescens and right leg wound cx growing klebsiella, serratia and VRE -meropenem 500mg ivp q12h per ID -Recommend caution with steroids in bacteremia, however, patient has been on long-term steroids and complete cessation will cause adrenal insufficiency. Discussed with national park tour guide. <Jacquelin Ahn V - Last Filed: 01/21/18 18:46> Objective - Vital Signs/Intake and Output Vital Signs (last 24 hours): Temp Pulse Resp BP Pulse Ox 97.7 F 89 20 123/69 100 01/21/18 17:57 01/21/18 17:57 01/21/18 17:57 01/21/18 17:57 01/21/18 06:00 Intake and Output: 01/21/18 01/21/18 06:59 18:59 Intake Total 160 Output Total 0 Balance 160 - Medications Medications: Current Medications Acetaminophen (Tylenol 325mg Tab) 650 mg PO Q6H PRN PRN Reason: Fever >100.4 F Last Admin: 01/19/18 20:29 Dose: 650 mg Albuterol/Ipratropium (Duoneb 3 Mg/0.5 Mg (3 Ml) Ud) 3 ml IH [id number] PRN PRN Reason: Shortness of Breath Last Admin: 01/21/18 13:23 Dose: 3 ml Arformoterol Tartrate (Brovana) 15 mcg IH [id number] [facility] Last Admin: 01/21/18 08:12 Dose: 15 mcg Aspirin (Ecotrin) 81 mg PO DAILY [facility] Last Admin: 01/21/18 10:56 Dose: 81 mg Atorvastatin Calcium (Lipitor) 10 mg PO HS [facility] Last Admin: 01/20/18 22:32 Dose: 10 mg Bacitracin (Bacitracin) 1 ea TOP BID [facility] Last Admin: 01/21/18 17:40 Dose: 1 ea Budesonide (Pulmicort Respules) 0.5 mg IH Q12H [facility] Last Admin: 01/21/18 08:13 Dose: 0.5 mg Collagenase (Santyl) 1 gm TOP DAILY [facility] Last Admin: 01/21/18 12:16 Dose: 1 applic Famotidine (Pepcid) 20 mg PO HS [facility] Last Admin: 01/20/18 22:32 Dose: 20 mg Fenofibrate (Tricor) 145 mg PO DAILY [facility] Last Admin: 01/21/18 10:56 Dose: 145 mg Fluticasone Propionate (Flonase) 1 actuation NS DAILY PRN PRN Reason: Nasal congestion Guaifenesin (Mucinex La) 600 mg PO BID PRN PRN Reason: Cough Heparin Sodium (Porcine) (Heparin) 5,000 units SC Q12 [facility]; Protocol Last Admin: 01/21/18 10:56 Dose: 5,000 units Hydrocortisone Sodium Succinate (Solu-Cortef) 50 mg IVP Q12 [facility] Last Admin: 01/21/18 12:16 Dose: 50 mg Meropenem/Sodium Chloride (Merrem Iv 500 Mg/Ns 50 Ml) 500 mg in 50 mls @ 100 mls/hr IVPB Q12 [facility]; Protocol Stop: 01/27/18 10:01 Last Admin: 01/21/18 11:12 Dose: 100 mls/hr Insulin Human Regular (Humulin R) 2 units SC AC [facility] Last Admin: 01/21/18 17:41 Dose: 2 units Insulin Human Regular (Humulin R Med) 0 units SC ACHS [facility]; Protocol Last Admin: 01/21/18 17:41 Dose: 7 units Latanoprost (Xalatan Opht) 0 ml OU HS [facility] Last Admin: 01/20/18 22:52 Dose: 2.5 ml Levothyroxine Sodium (Synthroid) 50 mcg PO 0600 [facility] Last Admin: 01/21/18 06:32 Dose: 50 mcg Metoprolol Tartrate (Lopressor) 25 mg PO BID [facility] Last Admin: 01/16/18 17:45 Dose: 25 mg Sodium Chloride ([place] Nasal [place]) 0 ml NS Q2 PRN PRN Reason: nasal congestion. Ticagrelor (Brilinta) 90 mg PO BID [facility] Last Admin: 01/21/18 17:42 Dose: Not Given - Labs Labs: 01/21/18 08:00 01/21/18 08:00 Attending/Attestation - Attestation I have personally seen and examined this patient.: Yes I have fully participated in the care of the patient.: Yes I have reviewed all pertinent clinical information, including history, physical exam and plan: Yes Notes (Text): This is an addendum to GI progress report dictated by the GI Fellow.The patient was seen and examined earlier. Medical records, lab studies, imagings were reviewed. Last 24 hours events reviewed. Agreed with the above treatment plan as outlined in GI Fellow 's notes with the addition of the following Clinically appears more stable Tolerating diet On low dose hydrocortisone History of steroid dependence Continue antibiotics as per ID 01/21/18 18:44
[2018-01-21] MEDS: Collagenase 250 Units/gm Ointment(30 gm) TOP SCH (12:16)
[2018-01-21 14:13] LABS: ARTERIAL BLOOD GAS HCO3 21.7 mmol/L (21-28); ARTERIAL BLOOD GAS O2 CAPACITY 12.5 mL/dl (16-24); ARTERIAL BLOOD GAS O2 CONTENT 12.2 ML/dl (15-23); ARTERIAL BLOOD GAS O2 SAT 97.5 % (95-98); ARTERIAL BLOOD GAS PCO2 32 mm/Hg (35-45); ARTERIAL BLOOD GAS PH 7.44 (7.35-7.45); ARTERIAL BLOOD GAS TCO2 22.7 mmol.L (22-28)
--- NOTE | 2018-01-21 14:17 | PN ---
DATE: 01/21/2018 SUBJECTIVE: The patient is in bed, in no acute distress. PHYSICAL EXAMINATION: VITAL SIGNS: On exam, temperature is 97, blood pressure is 101/40, respiratory rate of 18. HEENT: Examination of HEENT is unremarkable. NECK: Supple. LUNGS: Have decreased breath sounds. HEART: Normal S1, S2. ABDOMEN: Soft, nontender. LABORATORY DATA: Laboratory examination reveals a white count of 18,000, hemoglobin 9, platelets of 138. BUN of 67, creatinine is 5.2 and serology is noted. Microbiology reveals Serratia in the blood. Repeat blood cultures are negative. ASSESSMENT AND PLAN: A 52-year-old male with obesity, body mass index of 31, diabetes mellitus, chronic renal failure, on hemodialysis, peripheral vascular disease, coronary artery disease, had a history of Guerline glabrata fungemia. At that time, had a negative transesophageal echocardiography, was admitted on this admission with severe sepsis with Serratia bacteremia secondary to right stump cellulitis with Serratia. GI concern of origin versus urine as the origin for this, Serratia is also in the differential. The patient did have a right stump cellulitis on the CAT scan of the stump. No osteomyelitis was identified. THE PATIENT IS ALLERGIC TO QUINOLONES AND PENICILLIN. Today is day #4 of meropenem. There are no p.o. options in this PENICILLIN ALLERGIC PATIENT. Today is day #4 of 10 and 14 days of meropenem and the patient with renal failure, on hemodialysis and renal dosing of meropenem is noted. We will follow with you. Overall prognosis is quite poor. Jaspreet Forbes MD
--- NOTE | 2018-01-21 16:29 | PN ---
DATE: 01/21/2018 REASON FOR CONSULTATION: Cardiac evaluation, chest pain followup, admitted with diarrhea, and history of PTCA. This note is in addition to dictated by nurse practitioner. Yesterday, the patient was very much disoriented, confused. Discussed with mother. Discussed this morning. Again called the mother and gave update of the patient's condition , telephone number [phone]. The patient is much awake, alert and oriented. Yesterday EKG was done, no change. History of CAD, history of a stent in the past, history of PAD, status post right BK amputation, status post left hand middle finger amputation, history of pacemaker, sick sinus syndrome, brittle diabetes,end-stage renal disease, diabetes, hypertension, hyperlipidemia, diabetic nephropathy, diabetic retinopathy. ASSESSMENT AND PLAN: Overall, the patient's condition is critical. Long-term prognosis is extremely guarded. Continue aspirin, continue Brilinta, continue Lipitor. We will follow. Thank you for providing us the opportunity in taking care of patient, Ab Gomez. Jarred Erickson MD
--- NOTE | 2018-01-21 16:53 | CT ---
Date of service: 01/21/2018 PROCEDURE: CT HEAD WITHOUT CONTRAST. HISTORY: R/O stroke COMPARISON: 12/13/2017 TECHNIQUE: Axial computed tomography images were obtained through the head/brain without intravenous contrast. Radiation dose: Total exam DLP = 847.66 mGy-cm. This CT exam was performed using one or more of the following dose reduction techniques: Automated exposure control, adjustment of the mA and/or kV according to patient size, and/or use of iterative reconstruction technique. FINDINGS: HEMORRHAGE: No intracranial hemorrhage. BRAIN: No mass effect or edema. No atrophy or chronic microvascular ischemic changes. VENTRICLES: Unremarkable. No hydrocephalus. CALVARIUM: Unremarkable. PARANASAL SINUSES: Unremarkable as visualized. No significant inflammatory changes. MASTOID AIR CELLS: Unremarkable as visualized. No inflammatory changes. OTHER FINDINGS: None. IMPRESSION: No acute findings
[2018-01-21] MEDS: Latanoprost 2.5 ml Opht Soln OU SCH (21:24)
[2018-01-22] MEDS: Levothyroxine 25 MCG TAB PO SCH (05:08)
--- NOTE | 2018-01-22 06:11 | CP.PCM.PN ---
Subjective - Date & Time of Evaluation Date of Evaluation: 01/22/18 Time of Evaluation: 06:30 - Subjective Subjective: No distress, lethargic, but open eyes to name calling then goes back to sleep. Reason for consultation and follow up:Cardiac evaluation of chest pain,follow up of coronary artery disease, History of PPM, admitted for diarrhea Seen and examined by me and Dr. Erickson Objective - Vital Signs/Intake and Output Vital Signs (last 24 hours): Temp Pulse Resp BP Pulse Ox 97.7 F 77 20 98/56 L 100 01/22/18 00:01 01/22/18 05:56 01/22/18 00:01 01/22/18 00:01 01/21/18 06:00 Intake and Output: 01/21/18 01/22/18 18:59 06:59 Intake Total 580 0 Output Total 0 Balance 580 0 - Medications Medications: Current Medications Acetaminophen (Tylenol 325mg Tab) 650 mg PO Q6H PRN PRN Reason: Fever >100.4 F Last Admin: 01/19/18 20:29 Dose: 650 mg Albuterol/Ipratropium (Duoneb 3 Mg/0.5 Mg (3 Ml) Ud) 3 ml IH [id number] PRN PRN Reason: Shortness of Breath Last Admin: 01/21/18 13:23 Dose: 3 ml Arformoterol Tartrate (Brovana) 15 mcg IH [id number] [facility] Last Admin: 01/21/18 19:38 Dose: Not Given Aspirin (Ecotrin) 81 mg PO DAILY [facility] Last Admin: 01/21/18 10:56 Dose: 81 mg Atorvastatin Calcium (Lipitor) 10 mg PO [facility] Last Admin: 01/21/18 21:22 Dose: 10 mg Bacitracin (Bacitracin) 1 ea TOP BID [facility] Last Admin: 01/21/18 17:40 Dose: 1 ea Budesonide (Pulmicort Respules) 0.5 mg IH Q12H [facility] Last Admin: 01/21/18 19:39 Dose: Not Given Collagenase (Santyl) 1 gm TOP DAILY [facility] Last Admin: 01/21/18 12:16 Dose: 1 applic Famotidine (Pepcid) 20 mg PO [facility] Last Admin: 01/21/18 21:22 Dose: 20 mg Fenofibrate (Tricor) 145 mg PO DAILY [facility] Last Admin: 01/21/18 10:56 Dose: 145 mg Fluticasone Propionate (Flonase) 1 actuation NS DAILY PRN PRN Reason: Nasal congestion Guaifenesin (Mucinex [place]) 600 mg PO BID PRN PRN Reason: Cough Heparin Sodium (Porcine) (Heparin) 5,000 units SC Q12 [facility]; Protocol Last Admin: 01/21/18 21:22 Dose: 5,000 units Hydrocortisone Sodium Succinate (Solu-Cortef) 50 mg IVP Q12 [facility] Last Admin: 01/21/18 21:23 Dose: 50 mg Meropenem/Sodium Chloride (Merrem Iv 500 Mg/Ns 50 Ml) 500 mg in 50 mls @ 100 mls/hr IVPB Q12 [facility]; Protocol Stop: 01/27/18 10:01 Last Admin: 01/21/18 21:22 Dose: 100 mls/hr Insulin Human Regular (Humulin R) 2 units SC AC [facility] Last Admin: 01/21/18 17:41 Dose: 2 units Insulin Human Regular (Humulin R Med) 0 units SC ACHS [facility]; Protocol Last Admin: 01/21/18 21:57 Dose: Not Given Latanoprost (Xalatan Opht) 0 ml OU HS [facility] Last Admin: 01/21/18 21:24 Dose: 2.5 ml Levothyroxine Sodium (Synthroid) 50 mcg PO 0600 [facility] Last Admin: 01/22/18 05:08 Dose: 50 mcg Metoprolol Tartrate (Lopressor) 25 mg PO BID [facility] Last Admin: 01/16/18 17:45 Dose: 25 mg Sodium Chloride ([place] Nasal [place]) 0 ml NS Q2 PRN PRN Reason: nasal congestion. Ticagrelor (Brilinta) 90 mg PO BID [facility] Last Admin: 01/21/18 17:42 Dose: Not Given - Labs Labs: 01/21/18 08:00 01/21/18 08:00 - Constitutional Appears: Non-toxic, No Acute Distress - Head Exam Head Exam: NORMAL INSPECTION, NORMOCEPHALIC - ENT Exam ENT Exam: Mucous Membranes Dry - Respiratory Exam Respiratory Exam: Decreased Breath Sounds, NORMAL BREATHING PATTERN - Cardiovascular Exam Cardiovascular Exam: REGULAR RHYTHM, +S1, +S2 Additional comments: Telemetry NSR 70's PPM - GI/Abdominal Exam GI & Abdominal Exam: Distended, Soft, Normal Bowel Sounds - Exam Additional comments: ESRD on hemodialysis 3 x a week - Extremities Exam Additional comments: Right below knee amputation stump with dressing Left middle finger amputation left AV shunt positive bruit - Neurological Exam Additional comments: lethargic but arousable, open eyes to verbal stimuli - Skin Skin Exam: Dry, Normal Color, Warm Assessment and Plan - Assessment and Plan (Free Text) Assessment: 52 year old male obese who came in to the ER due to diarrhea for the past week prior to admission. History of very brittle insulin dependent diabetes mellitus, diabetic neuropathy,diabetic retinopathy,nephropathy,end stage renal disease, on hemodialysis 3x a week, left arm AV shunt /fistula, hypertension, hyperlipidemia,TIA, coronary artery disease with stents,resistant to Plavix, on Brilinta. severe peripheral vascular disease, post right below knee amputation, left middle finger amputation,TIA, PPM for sick sinus syndrome. subdural hematoma due to fall, COPD, pancreatitis. No evidence of myocardial infarction. Troponin negative, Positive for C-difficile.Right BKA stump positive for VRE. Blood culture from 01/17 positive for serratia, repeat blood culture done 01/18/18, so far no growth after [address] of head done yesterday to rule out bleeding. CT showed no hemorrhage/bleeding. Plan: Refusing CPAP/BIPAP at night No distress,lethargic but open eyes to name calling CT of head yesterday negative for bleeding or hemorrhage. On contact isolation Positive for C-difficile, right BKA stump positive for VRE, Blood culture positive for serratia Repeat blood culture done on 01/18, so far negative after 3 days Continue IV antibiotics as ordered by ID Blood pressure stable Heart rate stable Cardiac status stable Control glucose On ASA 81 mg daily,Lipitor 80 mg daily, Tricor 145 mg daily, Heparin 5000 units SC every 12 hours, Solucortef 100 mg IV every 8 hours Synthroid 50 mcg daily,Brilinta 90 mg BID Continue current treatment Continue current medications Chart reviewed Will follow up Plan and treatment discussed with Dr. Erickson
[2018-01-22] MEDS: Insulin Reg-MEDIUM-Coverage SC SCH ×4 (08:00→22:13)
[2018-01-22] MEDS: Budesonide 0.5 mg/2 ml Inhal Susp UD IH SCH ×2 (08:18→19:53)
[2018-01-22] MEDS: Arformoterol 15 mcg/2 ml Inh Sol IH SCH ×2 (08:18→19:52)
[2018-01-22] MEDS: Albuterol-Ipratrop 3 mg / 0.5 (3 ml) UD IH PRN (08:18)
--- NOTE | 2018-01-22 08:26 | PN ---
DATE: 01/19/2018 REASON FOR CONSULTATION AND FOLLOWUP: Cardiac evaluation for coronary artery disease, history of peripheral artery disease, and history of pacemaker. The patient denies chest pain, shortness of breath, or any palpitations on the way to dialysis. PHYSICAL EXAMINATION VITAL SIGNS: Examination as follows, vital signs, temperature afebrile, heart rate 82, blood pressure 111/42. HEENT: PERRLA, intact. NECK: Supple. No carotid bruits. No thyromegaly. CHEST: Clear to auscultation. HEART: S1 and S2 regular. ABDOMEN: Soft. EXTREMITIES: Clubbing and cyanosis negative. LABORATORY DATA: WBC 24.3, hemoglobin 9.5, hematocrit 29.6, platelet count 104. Chemistries shows sodium as of yesterday 135, potassium 4.5, chloride 96, carbon dioxide 26, anion gap of 17, BUN 26, creatinine 3.7. Blood culture; gram negative rods, sepsis, gram negative positive. IMPRESSION: A 52-year-old male with past medical history significant for coronary artery disease status post stent, history of pacemaker and because of bradycardia, history of intracerebral bleed, history of fungemia, negative transesophageal echocardiography for endocarditis admitted with gram negative sepsis, status post below-knee amputation, nonhealing ulcer of the right below-knee amputation, status post amputation of left middle finger, complaining of diarrhea, rule out Clostridium difficile colitis. The patient has been on long antibiotics. Protein-calorie malnutrition, severe which was not present on admission. RECOMMENDATIONS: Continue nutritional support, control of diabetes, aggressive medical treatment, antibiotic as per ID. Overall, the patient's condition critical. Long-term prognosis is guarded. Yesterday, the patient was very much concerned of family and very sensitive about discussing the living will. Continue dialysis. We will follow with you. Thank you, Dr. Potter for the opportunity in taking care of the patient, Jason Miramontes. Jarred Erickson MD
--- NOTE | 2018-01-22 09:01 | PN ---
DATE: 01/21/2018 REFERRING PHYSICIAN: Gallo Potter MD SUBJECTIVE: He is lying in the bed at 45 degrees, sleepy arousable, goes back to sleep, lethargic. No cough, no sputum production. No hemoptysis, no hematemesis. No hematuria, no diarrhea reported. OBJECTIVE: GENERAL: Lethargic, sleepy. VITAL SIGNS: Temp is 98, heart rate 85, respiratory rate is 20, blood pressure 101/49, pulse ox 100% on nasal cannula. HEENT: Moist mucous membranes. Crowded airway. Mallampati score is 4. NECK: Short thick neck. LUNGS: Have fair airflow. HEART: S1 and S2. ABDOMEN: Soft, nontender, nondistended. EXTREMITIES: Has a right leg BKA, left leg trace edema. NEUROLOGIC: Lethargic, arousable, but goes back to sleep. MEDICATIONS: He is on bacitracin ointment to affected area, Brilinta 90 mg twice a day, Brovana inhaled twice a day, DuoNeb every 6 hours p.r.n., Ecotrin 81 mg daily, Flonase 1 spray to each nostril daily, heparin 5000 units subcu every 12 hours, insulin coverage, Lipitor 10 mg daily, metoprolol tartrate 25 mg twice a day, meropenem 1 g IV every 12 hours, Mucinex LA 600 mg twice a day, nasal saline 1 spray to each nostril every 2 hours p.r.n., Pepcid 20 mg daily, Pulmicort inhaled twice a day, Santyl 1 g topically daily, 50 mg every 12 hours, Synthroid 50 mcg daily, TriCor 145 mg daily, Tylenol p.r.n., and eyedrops are both eye at bedtime. LABORATORY DATA: Shows hemoglobin 9.9, hematocrit 30.8, WBC 18,000, platelet is 138. Sodium 135, potassium 5.5, chloride 96, bicarbonate 20, BUN 67, creatinine 5.2, glucose 335, calcium is 7.9. AST 79, ALT 39, alk phos is 116, albumin is 2.5. Repeat blood culture done on January 18 is negative. Blood culture from January 17 has Serratia marcescens. IMPRESSION AND PLAN: Septic shock with gram-negative rods, on antibiotics; renal failure, dialysis dependent; chronic obstructive lung disease; suspected hypoventilation syndrome; sleep apnea syndrome; coronary artery disease; history of coronary stent; cardiac diastolic dysfunction; cardiac arrhythmia requiring pacemaker; may have gastroparesis; severe peripheral vascular disease requiring right below-knee amputation; may have Raynaud's phenomenon. Fully lethargic, refusing to use CPAP/BiPAP. We will get ABG stat to assess pCO2 and pH. May place back on BiPAP. Aspiration precaution, pressure ulcer precaution. Gastric and deep venous thrombosis prophylaxis. Follow up labs in the morning. Thank you, and we will follow with you. Jarred Escalera MD
--- NOTE | 2018-01-22 09:01 | PN ---
DATE: 01/21/2018 SUBJECTIVE: The patient is 52 years old, seen and examined, seemed to be confused and somewhat disoriented; however, responds to verbal stimuli, seems sedated, although he was not given any medications. According to nurse, later on in the evening his mental status relatively. He was relatively looking better. He did eat 50% of his breakfast. PHYSICAL EXAMINATION: VITAL SIGNS: He is afebrile, pulse 85, respirations 20, and blood pressure 101/49. LUNGS: Bilateral clear airflow. No rhonchi or crackles. HEART: S1 and S2 audible. ABDOMEN: Soft, obese, and nontender. No rebound, no guarding. NEUROLOGIC: The patient is sleepy, but arousable, status post right BKA and has a wound that has been dressed, . LABORATORY DATA: WBC is 16.3, hemoglobin 9.9, hematocrit 30.8, and platelets 138. Chemistries: Sodium 135, potassium 5.5, chloride 96, CO2 20, BUN 67, creatinine 5.2, and blood sugars 423. He was growing Serratia marcescens blood up until 01/17/2018. Followup blood cultures on 01/18/2018 are negative. ASSESSMENT: 1. Serratia marcescens sepsis. 2. Right leg Klebsiella oxytoca, Serratia, and vancomycin-resistant Enterococci wound infection. 3. End-stage renal disease, on hemodialysis. 4. History of hypertension, currently hypotensive. 5. Coronary artery disease. 6. Peripheral vascular disease, status post right below-knee amputation. 7. Hyperkalemia. PLAN: We will give him a dose of . Currently, he is on meropenem. Avoid sedation. Continue nebulizer treatment. He is on Solu-Greco because of adrenal insufficiency and dialysis is given. Sanjay Castillo MD
--- NOTE | 2018-01-22 09:03 | PN ---
DATE: 01/20/2018 PULMONARY PROGRESS NOTE REFERRING PHYSICIAN: Gallo Potter MD SUBJECTIVE: He is lying in the bed sleepy, arousable, and goes back to sleep. Family is at the bedside. Does not use CPAP/BiPAP. Apparently, he received some Ativan and Benadryl early this morning. No cough. No sputum production. No nausea. No vomiting. No diarrhea. Does have a trace leg swelling. Has a right BKA stump covered with dressing. OBJECTIVE: GENERAL: In no acute distress. VITAL SIGNS: Temperature is 98, heart rate is 87, respiratory rate is 20, blood pressure is 124/69, and pulse ox 100% on nasal cannula. HEENT: Moist mucous membranes. Crowded airway. Mallampati score is 4. NECK: Supple. No JVD. LUNGS: Has a fair airflow with few rhonchi. HEART: S1 and S2. ABDOMEN: Soft and nontender. No organomegaly. EXTREMITIES: Trace edema, right leg has a BKA. NEUROLOGIC: Lethargic, sleepy, but arousable and goes back to sleep. MEDICATIONS: He is on Bacitracin ointment to affected area twice a day, also getting Brilinta 90 mg twice a day, Brovana inhaler twice a day, DuoNeb every 6 hours p.r.n., Ecotrin 81 mg daily, Flonase one spray each nostril daily, heparin 5000 units subcutaneously every 12 hours, insulin coverage, Lipitor 10 mg at bedtime, metoprolol tartrate 25 mg twice a day, Lyrica 50 mg at bedtime, meropenem 500 mg every 12 hours, Mucinex LA 600 mg twice a day p.r.n., Pepcid 20 mg at bedtime, Pulmicort inhaler twice a day, Santyl at affected area, Solu-Cortef 50 mg every 8 hours, Synthroid 50 mcg p.o. daily, TriCor 145 mg daily, and Tylenol p.r.n. LABORATORY DATA: Reviewed. Blood sugar is 288. Microbiology: Repeat blood culture so far there is no growth, but blood culture on 01/17/2018 has a Serratia marcescens. Had EKG done, which shows electronic ventricular pacemaker. ASSESSMENT AND PLAN: Septic shock with Gram-negative bactremia probably has adrenal insufficiency; chronic obstructive lung disease; obstructive sleep apnea syndrome; coronary artery disease; cardiac arrhythmia, requiring pacemaker; gastroparesis; severe peripheral vascular disease, status post right below-knee amputation; may have Raynaud's phenomenon; and very sleepy. I spoke to the patient's family at the bedside and all the questions answered. Also I spoke to the nursing staff and recommended to avoid sedatives. We will discontinue Lyrica for now. Also, suggested to place him on CPAP for now. If any deterioration, we will do ABGs. We will get labs in the morning. Keep head at 45 degrees. Continue Solu-Cortef, we will decrease to every 12 hours. Thank you and we will follow with you. Jarred Escalera MD
--- NOTE | 2018-01-22 09:41 | CP.PCM.PN ---
<Kuldip Nur R - Last Filed: 01/22/18 09:32> Subjective - Date & Time of Evaluation Date of Evaluation: 01/22/18 Time of Evaluation: 09:32 - Subjective Subjective: PGY-2 GI progess note for Dr Ahn No acute events overnight. No fevers overnight, diastolic BP low. He is drowsy but arousable. He states that he is no longer having diarrhea. Stated his abdominal discomfort "comes and goes". Denied emesis. Objective - Vital Signs/Intake and Output Vital Signs (last 24 hours): Temp Pulse Resp BP Pulse Ox 98.8 F 74 20 92/44 L 99 01/22/18 06:30 01/22/18 06:30 01/22/18 06:30 01/22/18 06:30 01/22/18 06:30 Intake and Output: 01/22/18 01/22/18 06:59 18:59 Intake Total 0 Balance 0 - Medications Medications: Current Medications Acetaminophen (Tylenol 325mg Tab) 650 mg PO Q6H PRN PRN Reason: Fever >100.4 F Last Admin: 01/19/18 20:29 Dose: 650 mg Albuterol/Ipratropium (Duoneb 3 Mg/0.5 Mg (3 Ml) Ud) 3 ml IH [id number] PRN PRN Reason: Shortness of Breath Last Admin: 01/22/18 08:18 Dose: 3 ml Arformoterol Tartrate (Brovana) 15 mcg IH [id number] [facility] Last Admin: 01/22/18 08:18 Dose: 15 mcg Aspirin (Ecotrin) 81 mg PO DAILY [facility] Last Admin: 01/21/18 10:56 Dose: 81 mg Atorvastatin Calcium (Lipitor) 10 mg PO [facility] Last Admin: 01/21/18 21:22 Dose: 10 mg Bacitracin (Bacitracin) 1 ea TOP BID [facility] Last Admin: 01/21/18 17:40 Dose: 1 ea Budesonide (Pulmicort Respules) 0.5 mg IH Q12H [facility] Last Admin: 01/22/18 08:18 Dose: 0.5 mg Collagenase (Santyl) 1 gm TOP DAILY [facility] Last Admin: 01/21/18 12:16 Dose: 1 applic Famotidine (Pepcid) 20 mg PO [facility] Last Admin: 01/21/18 21:22 Dose: 20 mg Fenofibrate (Tricor) 145 mg PO DAILY [facility] Last Admin: 01/21/18 10:56 Dose: 145 mg Fluticasone Propionate (Flonase) 1 actuation NS DAILY PRN PRN Reason: Nasal congestion Guaifenesin (Mucinex La) 600 mg PO BID PRN PRN Reason: Cough Heparin Sodium (Porcine) (Heparin) 5,000 units SC Q12 [facility]; Protocol Last Admin: 01/21/18 21:22 Dose: 5,000 units Hydrocortisone Sodium Succinate (Solu-Cortef) 50 mg IVP Q12 [facility] Last Admin: 01/21/18 21:23 Dose: 50 mg Meropenem/Sodium Chloride (Merrem Iv 500 Mg/Ns 50 Ml) 500 mg in 50 mls @ 100 mls/hr IVPB Q12 [facility]; Protocol Stop: 01/27/18 10:01 Last Admin: 01/21/18 21:22 Dose: 100 mls/hr Insulin Human Regular (Humulin R) 2 units SC AC [facility] Last Admin: 01/21/18 17:41 Dose: 2 units Insulin Human Regular (Humulin R Med) 0 units SC ACHS [facility]; Protocol Last Admin: 01/21/18 21:57 Dose: Not Given Latanoprost (Xalatan Opht) 0 ml OU HS [facility] Last Admin: 01/21/18 21:24 Dose: 2.5 ml Levothyroxine Sodium (Synthroid) 50 mcg PO 0600 [facility] Last Admin: 01/22/18 05:08 Dose: 50 mcg Metoprolol Tartrate (Lopressor) 25 mg PO BID [facility] Last Admin: 01/16/18 17:45 Dose: 25 mg Sodium Chloride ([place] Nasal [place]) 0 ml NS Q2 PRN PRN Reason: nasal congestion. Ticagrelor (Brilinta) 90 mg PO BID [facility] Last Admin: 01/21/18 17:42 Dose: Not Given - Labs Labs: 01/21/18 08:00 01/21/18 08:00 - Additional Findings Additional findings: - Constitutional Appears: Non-toxic, No Acute Distress, Older Than Stated Age, Chronically Ill - Head Exam Head Exam: ATRAUMATIC, NORMOCEPHALIC - Eye Exam Eye Exam: EOMI, Normal appearance, PERRL - ENT Exam ENT Exam: Mucous Membranes Moist - Respiratory Exam Respiratory Exam: Clear to Auscultation Bilateral, NORMAL BREATHING PATTERN. absent: Rales, Rhonchi, Wheezes - Cardiovascular Exam Cardiovascular Exam: REGULAR RHYTHM, +S1, +S2. absent: Gallop, Rubs, Systolic Murmur - GI/Abdominal Exam GI & Abdominal Exam: Normal Bowel Sounds, Soft. absent: Distended, Firm, Guarding, Rebound, Rigid, Tenderness - Extremities Exam Extremities exam: Positive for: full ROM Additional comments: S/p R BKA, dressing site c/d/i; L middle finger necrotic down to PIP, no abnormal drainage noted, painful with movement - Neurological Exam Neurological exam: Alert, CN II-XII Intact, Oriented x3 - Psychiatric Exam Psychiatric exam: Normal Affect, Normal Mood - Skin Skin Exam: Dry, Intact, Warm Assessment and Plan - Assessment and Plan (Free Text) Plan: 52 y/o Male w/ PMHx of CHF, HTN, BPH, CVA, DM2, anemia, ESRD on HD (T, Th, Sat), Neuropathy and recent R BKA with a PSHx of R BKA, cornea transplant, cholecystectomy presenting to the emergency department complaining of severe diarrhea intermittent for the past 2 weeks, associated with diffuse abdominal pain: Diarrhea, Resolved -currently afebrile, white count increased possibly due to hydrocortisone vs infectious process -cdiff toxin and antigen negative -vre screen negative -CT abd/pelvis po contrast 01/16: * Small left pleural effusion and consolidation at left lung base. Mild ascites. No acute intra-abdominal findings. No evidence of enteritis or colitis -blood cx growing serratia marcescens and right leg wound cx growing klebsiella, serratia and VRE -meropenem 500mg ivp q12h per ID -Recommend caution with steroids in bacteremia, however, patient has been on long-term steroids and complete cessation will cause adrenal insufficiency. 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 Seen and discussed with Dr Ahn. <Jacquelin Ahn V - Last Filed: 01/22/18 23:32> Objective - Vital Signs/Intake and Output Vital Signs (last 24 hours): Temp Pulse Resp BP Pulse Ox 98.7 F 79 18 92/51 L 99 01/22/18 18:00 01/22/18 18:00 01/22/18 18:00 01/22/18 18:00 01/22/18 06:30 Intake and Output: 01/22/18 01/23/18 18:59 06:59 Intake Total 780 Output Total 0 Balance 780 - Medications Medications: Current Medications Acetaminophen (Tylenol 325mg Tab) 650 mg PO Q6H PRN PRN Reason: Pain, moderate (4-7) Albuterol/Ipratropium (Duoneb 3 Mg/0.5 Mg (3 Ml) Ud) 3 ml IH [id number] PRN PRN Reason: Shortness of Breath Last Admin: 01/22/18 08:18 Dose: 3 ml Arformoterol Tartrate (Brovana) 15 mcg IH [id number] [facility] Last Admin: 01/22/18 19:52 Dose: 15 mcg Aspirin (Ecotrin) 81 mg PO DAILY [facility] Last Admin: 01/22/18 12:58 Dose: 81 mg Atorvastatin Calcium (Lipitor) 10 mg PO HS [facility] Last Admin: 01/22/18 22:13 Dose: 10 mg Bacitracin (Bacitracin) 1 ea TOP BID [facility] Last Admin: 01/22/18 18:10 Dose: 1 ea Budesonide (Pulmicort Respules) 0.5 mg IH Q12H [facility] Last Admin: 01/22/18 19:53 Dose: 0.5 mg Collagenase (Santyl) 1 gm TOP DAILY [facility] Last Admin: 01/21/18 12:16 Dose: 1 applic Famotidine (Pepcid) 20 mg PO HS [facility] Last Admin: 01/22/18 22:13 Dose: 20 mg Fenofibrate (Tricor) 145 mg PO DAILY [facility] Last Admin: 01/22/18 12:57 Dose: 145 mg Fluticasone Propionate (Flonase) 1 actuation NS DAILY PRN PRN Reason: Nasal congestion Guaifenesin (Mucinex La) 600 mg PO BID PRN PRN Reason: Cough Heparin Sodium (Porcine) (Heparin) 5,000 units SC Q12 [facility]; Protocol Last Admin: 01/22/18 22:13 Dose: 5,000 units Hydrocortisone Sodium Succinate (Solu-Cortef) 50 mg IVP Q12 [facility] Last Admin: 01/22/18 22:14 Dose: 50 mg Meropenem/Sodium Chloride (Merrem Iv 500 Mg/Ns 50 Ml) 500 mg in 50 mls @ 100 mls/hr IVPB Q12 [facility]; Protocol Stop: 01/27/18 10:01 Last Admin: 01/22/18 22:14 Dose: 100 mls/hr Insulin Human Regular (Humulin R) 2 units SC AC [facility] Last Admin: 01/22/18 17:00 Dose: 2 units Insulin Human Regular (Humulin R Med) 0 units SC ACHS [facility]; Protocol Last Admin: 01/22/18 22:13 Dose: 3 unit Insulin Lispro Protam/Lispro Human (Humalog Mix 75/25) 10 units SC BID [facility] Latanoprost (Xalatan Opht) 0 ml OU HS [facility] Last Admin: 01/22/18 22:12 Dose: 2.5 ml Levothyroxine Sodium (Synthroid) 50 mcg PO 0600 [facility] Last Admin: 01/22/18 05:08 Dose: 50 mcg Metoprolol Tartrate (Lopressor) 25 mg PO BID [facility] Last Admin: 01/16/18 17:45 Dose: 25 mg Sodium Chloride ([place] Nasal [place]) 0 ml NS Q2 PRN PRN Reason: nasal congestion. Ticagrelor (Brilinta) 90 mg PO BID [facility] Last Admin: 01/22/18 11:50 Dose: Not Given - Labs Labs: 01/22/18 09:50 01/22/18 09:50 Attending/Attestation - Attestation I have personally seen and examined this patient.: Yes I have fully participated in the care of the patient.: Yes I have reviewed all pertinent clinical information, including history, physical exam and plan: Yes Notes (Text): p 01/22/18 23:32
[2018-01-22] MEDS ORDERED: Insulin Lispro (humaLOG) MIX 75/25(10 ml) SC SCH (10:00)
[2018-01-22 10:04] LABS: HEMOGLOBIN 8.8 g/dL (14.0-18.0); MEAN CORPUSCULAR HEMOGLOBIN 30.4 pg (25.0-35.0); MEAN CORPUSCULAR HGB CONC 33.5 g/dl (31.0-37.0); MEAN PLATELET VOLUME 11.8 fl (7.0-11.0); RBC 2.89 10^6/uL (3.5-6.1); RED CELL DISTRIBUTION WIDTH 17.3 % (11.5-14.5); WHITE BLOOD COUNT 16.5 10^3/uL (4.5-11.0)
[2018-01-22 10:12] LABS: ALB/GLOB RATIO 0.6 (1.1-1.8); ALBUMIN 2.5 g/dL (3.0-4.8); CALCIUM 7.4 mg/dL (8.4-10.5)
--- NOTE | 2018-01-22 10:13 | CP.PCM.PN ---
<Jojo Crouch - Last Filed: 01/22/18 11:09> Subjective - Date & Time of Evaluation Date of Evaluation: 01/22/18 Time of Evaluation: 10:08 - Subjective Subjective: Jojo Crouch DO, PGY-2: Progress Note for Dr. Potter Patient was seen and examined at bedside. Patient denies any chest pain, nausea, vomiting, or diarrhea. Weekend events noted. CT scan of head negative. Objective - Vital Signs/Intake and Output Vital Signs (last 24 hours): Temp Pulse Resp BP Pulse Ox 98.8 F 74 20 92/44 L 99 01/22/18 06:30 01/22/18 06:30 01/22/18 06:30 01/22/18 06:30 01/22/18 06:30 Intake and Output: 01/22/18 01/22/18 06:59 18:59 Intake Total 0 Balance 0 - Medications Medications: Current Medications Acetaminophen (Tylenol 325mg Tab) 650 mg PO Q6H PRN PRN Reason: Fever >100.4 F Last Admin: 01/19/18 20:29 Dose: 650 mg Albuterol/Ipratropium (Duoneb 3 Mg/0.5 Mg (3 Ml) Ud) 3 ml IH [id number] PRN PRN Reason: Shortness of Breath Last Admin: 01/22/18 08:18 Dose: 3 ml Arformoterol Tartrate (Brovana) 15 mcg IH [id number] [facility] Last Admin: 01/22/18 08:18 Dose: 15 mcg Aspirin (Ecotrin) 81 mg PO DAILY [facility] Last Admin: 01/21/18 10:56 Dose: 81 mg Atorvastatin Calcium (Lipitor) 10 mg PO [facility] Last Admin: 01/21/18 21:22 Dose: 10 mg Bacitracin (Bacitracin) 1 ea TOP BID [facility] Last Admin: 01/21/18 17:40 Dose: 1 ea Budesonide (Pulmicort Respules) 0.5 mg IH Q12H [facility] Last Admin: 01/22/18 08:18 Dose: 0.5 mg Collagenase (Santyl) 1 gm TOP DAILY [facility] Last Admin: 01/21/18 12:16 Dose: 1 applic Famotidine (Pepcid) 20 mg PO [facility] Last Admin: 01/21/18 21:22 Dose: 20 mg Fenofibrate (Tricor) 145 mg PO DAILY [facility] Last Admin: 01/21/18 10:56 Dose: 145 mg Fluticasone Propionate (Flonase) 1 actuation NS DAILY PRN PRN Reason: Nasal congestion Guaifenesin (Mucinex La) 600 mg PO BID PRN PRN Reason: Cough Heparin Sodium (Porcine) (Heparin) 5,000 units SC Q12 [facility]; Protocol Last Admin: 01/21/18 21:22 Dose: 5,000 units Hydrocortisone Sodium Succinate (Solu-Cortef) 50 mg IVP Q12 [facility] Last Admin: 01/21/18 21:23 Dose: 50 mg Meropenem/Sodium Chloride (Merrem Iv 500 Mg/Ns 50 Ml) 500 mg in 50 mls @ 100 mls/hr IVPB Q12 [facility]; Protocol Stop: 01/27/18 10:01 Last Admin: 01/21/18 21:22 Dose: 100 mls/hr Insulin Human Regular (Humulin R) 2 units SC AC [facility] Last Admin: 01/21/18 17:41 Dose: 2 units Insulin Human Regular (Humulin R Med) 0 units SC ACHS [facility]; Protocol Last Admin: 01/21/18 21:57 Dose: Not Given Insulin Lispro Protam/Lispro Human (Humalog Mix 75/25) 10 units SC BID [facility] Latanoprost (Xalatan Opht) 0 ml OU HS [facility] Last Admin: 01/21/18 21:24 Dose: 2.5 ml Levothyroxine Sodium (Synthroid) 50 mcg PO 0600 [facility] Last Admin: 01/22/18 05:08 Dose: 50 mcg Metoprolol Tartrate (Lopressor) 25 mg PO BID [facility] Last Admin: 01/16/18 17:45 Dose: 25 mg Sodium Chloride ([place] Nasal [place]) 0 ml NS Q2 PRN PRN Reason: nasal congestion. Ticagrelor (Brilinta) 90 mg PO BID [facility] Last Admin: 01/21/18 17:42 Dose: Not Given - Labs Labs: 01/21/18 08:00 01/21/18 08:00 - Constitutional Appears: Non-toxic, No Acute Distress - Head Exam Head Exam: ATRAUMATIC Additional comments: bradley facies - ENT Exam ENT Exam: Mucous Membranes Moist - Neck Exam Neck Exam: Normal Inspection - Respiratory Exam Respiratory Exam: Decreased Breath Sounds (in lung bases bilaterally), NORMAL BREATHING PATTERN. absent: Accessory Muscle Use - Cardiovascular Exam Cardiovascular Exam: RRR, +S1, +S2 - GI/Abdominal Exam GI & Abdominal Exam: Soft, Normal Bowel Sounds - Extremities Exam Additional comments: right BKA is wrapped, left third finger is unwrapped - Psychiatric Exam Psychiatric exam: Normal Affect, Normal Mood - Skin Skin Exam: Pallor Assessment and Plan - Assessment and Plan (Free Text) Assessment: 52 year old male with a past medical history notable for ESRD, CAD with FL 4 months ago, right BKA, and left third digit amputation who presents with melena and diarrhea. His blood cultures are growing Serratia Marcesans likely from infected right BKA. Plan: 1) Sepsis secondary to Serratia Marcescans bacteremia from right BKA stump in fection - Case was discussed with surgical team, who recommends revision of the right BKA and DRIL procedure for the left arm 2) ESRD - Continue with dialysis 3) CAD - Continue Brillinta 90 mg BID - Aspirin 81 mg - Metroprolol 25 mg BID - Atorvastatin 80 mg HS - Dr. Erickson consulted, appreciate recommendations 4) DM II - Humulin regular ISS with ACHS fingerstick BG - Humalog 75/25 10 units SC BID 5) Peripheral Neuropathy - Pregabalin 50 mg HS - Percocet 10 mg q6h PRN for pain 6) Upper respiratory symptoms - Mucinex LA 650 PRN - Flonase PRN 7) Hypothyroidism - Levothyroxine 50 mcg PO daily 8) Hyperlipidemia - Fenofibrate 145 mg PO daily 9) Glaucoma - Latanoprost drops OU 10) Adrenal insufficiency - Solucortef 50 mg q12h 11) Episodic COnfusion - CT head negative Disposition: Guarded Case was reviewed and discussed with attending physician, Dr. Potter <Gallo Potter - Last Filed: 01/22/18 19:34> Objective - Vital Signs/Intake and Output Vital Signs (last 24 hours): Temp Pulse Resp BP Pulse Ox 98.7 F 79 18 92/51 L 99 01/22/18 18:00 01/22/18 18:00 01/22/18 18:00 01/22/18 18:00 01/22/18 06:30 Intake and Output: 01/22/18 01/23/18 18:59 06:59 Intake Total 780 Output Total 0 Balance 780 - Medications Medications: Current Medications Acetaminophen (Tylenol 325mg Tab) 650 mg PO Q6H PRN PRN Reason: Fever >100.4 F Last Admin: 01/22/18 10:00 Dose: 650 mg Albuterol/Ipratropium (Duoneb 3 Mg/0.5 Mg (3 Ml) Ud) 3 ml IH [id number] PRN PRN Reason: Shortness of Breath Last Admin: 01/22/18 08:18 Dose: 3 ml Arformoterol Tartrate (Brovana) 15 mcg IH [id number] [facility] Last Admin: 01/22/18 08:18 Dose: 15 mcg Aspirin (Ecotrin) 81 mg PO DAILY [facility] Last Admin: 01/22/18 12:58 Dose: 81 mg Atorvastatin Calcium (Lipitor) 10 mg PO HS [facility] Last Admin: 01/21/18 21:22 Dose: 10 mg Bacitracin (Bacitracin) 1 ea TOP BID [facility] Last Admin: 01/22/18 18:10 Dose: 1 ea Budesonide (Pulmicort Respules) 0.5 mg IH Q12H [facility] Last Admin: 01/22/18 08:18 Dose: 0.5 mg Collagenase (Santyl) 1 gm TOP DAILY [facility] Last Admin: 01/21/18 12:16 Dose: 1 applic Famotidine (Pepcid) 20 mg PO HS [facility] Last Admin: 01/21/18 21:22 Dose: 20 mg Fenofibrate (Tricor) 145 mg PO DAILY [facility] Last Admin: 01/22/18 12:57 Dose: 145 mg Fluticasone Propionate (Flonase) 1 actuation NS DAILY PRN PRN Reason: Nasal congestion Guaifenesin (Mucinex La) 600 mg PO BID PRN PRN Reason: Cough Heparin Sodium (Porcine) (Heparin) 5,000 units SC Q12 [facility]; Protocol Last Admin: 01/22/18 12:58 Dose: 5,000 units Hydrocortisone Sodium Succinate (Solu-Cortef) 50 mg IVP Q12 [facility] Last Admin: 01/22/18 13:08 Dose: 50 mg Meropenem/Sodium Chloride (Merrem Iv 500 Mg/Ns 50 Ml) 500 mg in 50 mls @ 100 mls/hr IVPB Q12 [facility]; Protocol Stop: 01/27/18 10:01 Last Admin: 01/22/18 13:23 Dose: 100 mls/hr Insulin Human Regular (Humulin R) 2 units SC AC [facility] Last Admin: 01/22/18 17:00 Dose: 2 units Insulin Human Regular (Humulin R Med) 0 units SC ACHS [facility]; Protocol Last Admin: 01/22/18 17:00 Dose: 5 unit Insulin Lispro Protam/Lispro Human (Humalog Mix 75/25) 10 units SC BID [facility] Latanoprost (Xalatan Opht) 0 ml OU HS [facility] Last Admin: 01/21/18 21:24 Dose: 2.5 ml Levothyroxine Sodium (Synthroid) 50 mcg PO 0600 [facility] Last Admin: 01/22/18 05:08 Dose: 50 mcg Metoprolol Tartrate (Lopressor) 25 mg PO BID [facility] Last Admin: 01/16/18 17:45 Dose: 25 mg Sodium Chloride ([place] Nasal [place]) 0 ml NS Q2 PRN PRN Reason: nasal congestion. Ticagrelor (Brilinta) 90 mg PO BID [facility] Last Admin: 01/22/18 11:50 Dose: Not Given - Labs Labs: 01/22/18 09:50 01/22/18 09:50 Assessment and Plan - Assessment and Plan (Free Text) Assessment: Pt seen and examined. I have reviewed the note of the medical insurance clerk and agree with it. I have discussed the assessment and plan with the resident. I have reviewed the patient's labs and medications. Pt with sepsis from the R leg wound after the BKA. I spoke to Dr Urrutia and pt will be going to the OR in the AM. He was not able to get a full treatment due to diarrhea. He has PAD and CAD. I spoke to the pt's mother about the current situation. Prognosis is poor.
[2018-01-22] MEDS: Insulin Regular 1 UNITS/0.01 ML ML SC SCH ×2 (12:00→17:00)
[2018-01-22] MEDS: Bacitracin 500 Units/gm Oint Foilpak UD TOP SCH ×2 (12:57→18:10)
[2018-01-22] MEDS: MEROPENEM 500 MG in NS 500 MG/50 ML BAG IVPB SCH ×2 (13:23→22:14)
--- NOTE | 2018-01-22 16:42 | CP.PCM.PN ---
Subjective - Date & Time of Evaluation Date of Evaluation: 01/22/18 Time of Evaluation: 07:15 - Subjective Subjective: For dialysis today, no fevers, not in distress. Objective - Vital Signs/Intake and Output Vital Signs (last 24 hours): Temp Pulse Resp BP Pulse Ox 97.7 F 89 20 123/69 100 01/21/18 17:57 01/21/18 17:57 01/21/18 17:57 01/21/18 17:57 01/21/18 06:00 Intake and Output: 01/21/18 01/22/18 18:59 06:59 Intake Total 580 Output Total 0 Balance 580 - Medications Medications: Current Medications Acetaminophen (Tylenol 325mg Tab) 650 mg PO Q6H PRN PRN Reason: Fever >100.4 F Last Admin: 01/19/18 20:29 Dose: 650 mg Albuterol/Ipratropium (Duoneb 3 Mg/0.5 Mg (3 Ml) Ud) 3 ml IH [id number] PRN PRN Reason: Shortness of Breath Last Admin: 01/21/18 13:23 Dose: 3 ml Arformoterol Tartrate (Brovana) 15 mcg IH [id number] [facility] Last Admin: 01/21/18 19:38 Dose: Not Given Aspirin (Ecotrin) 81 mg PO DAILY [facility] Last Admin: 01/21/18 10:56 Dose: 81 mg Atorvastatin Calcium (Lipitor) 10 mg PO HS [facility] Last Admin: 01/21/18 21:22 Dose: 10 mg Bacitracin (Bacitracin) 1 ea TOP BID [facility] Last Admin: 01/21/18 17:40 Dose: 1 ea Budesonide (Pulmicort Respules) 0.5 mg IH Q12H [facility] Last Admin: 01/21/18 19:39 Dose: Not Given Collagenase (Santyl) 1 gm TOP DAILY [facility] Last Admin: 01/21/18 12:16 Dose: 1 applic Famotidine (Pepcid) 20 mg PO HS [facility] Last Admin: 01/21/18 21:22 Dose: 20 mg Fenofibrate (Tricor) 145 mg PO DAILY [facility] Last Admin: 01/21/18 10:56 Dose: 145 mg Fluticasone Propionate (Flonase) 1 actuation NS DAILY PRN PRN Reason: Nasal congestion Guaifenesin (Mucinex La) 600 mg PO BID PRN PRN Reason: Cough Heparin Sodium (Porcine) (Heparin) 5,000 units SC Q12 [facility]; Protocol Last Admin: 01/21/18 21:22 Dose: 5,000 units Hydrocortisone Sodium Succinate (Solu-Cortef) 50 mg IVP Q12 [facility] Last Admin: 01/21/18 21:23 Dose: 50 mg Meropenem/Sodium Chloride (Merrem Iv 500 Mg/Ns 50 Ml) 500 mg in 50 mls @ 100 mls/hr IVPB Q12 [facility]; Protocol Stop: 01/27/18 10:01 Last Admin: 01/21/18 21:22 Dose: 100 mls/hr Insulin Human Regular (Humulin R) 2 units SC AC [facility] Last Admin: 01/21/18 17:41 Dose: 2 units Insulin Human Regular (Humulin R Med) 0 units SC ACHS [facility]; Protocol Last Admin: 01/21/18 21:57 Dose: Not Given Latanoprost (Xalatan Opht) 0 ml OU HS [facility] Last Admin: 01/21/18 21:24 Dose: 2.5 ml Levothyroxine Sodium (Synthroid) 50 mcg PO 0600 [facility] Last Admin: 01/21/18 06:32 Dose: 50 mcg Metoprolol Tartrate (Lopressor) 25 mg PO BID [facility] Last Admin: 01/16/18 17:45 Dose: 25 mg Sodium Chloride ([place] Nasal [place]) 0 ml NS Q2 PRN PRN Reason: nasal congestion. Ticagrelor (Brilinta) 90 mg PO BID [facility] Last Admin: 01/21/18 17:42 Dose: Not Given - Labs Labs: 01/21/18 08:00 01/21/18 08:00 - Constitutional Appears: Chronically Ill - Head Exam Head Exam: NORMAL INSPECTION - Respiratory Exam Respiratory Exam: Decreased Breath Sounds - Cardiovascular Exam Cardiovascular Exam: +S1, +S2 - GI/Abdominal Exam GI & Abdominal Exam: Soft. 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 diff. associated diarrhea ESRD on HD DM obesity CAD S/P PCI retinopathy history of pancreatitis Plan continue Merrem day 5 of 10-14 days and will continue to monitor clinically
[2018-01-22] MEDS: Latanoprost 2.5 ml Opht Soln OU SCH (22:12)
--- NOTE | 2018-01-22 22:57 | PN ---
DATE: 01/22/2018 PULMONARY PROGRESS NOTE REFERRING PHYSICIAN: Dr. Gallo Potter SUBJECTIVELY: He is lying in the bed head at 45 degrees. A little more awake than yesterday but still sleepy, not very compliant with the BiPAP. No headache, no rhinitis. No nausea, no vomiting, no diarrhea, leg pain or leg swelling. OBJECTIVE: GENERAL: In no acute distress. VITAL SIGNS: Temp is 98, heart rate 79, respiratory rate is 18, blood pressure is 92/51, pulse ox 99% on nasal cannula. HEENT: Moist mucous membrane. Crowded airway. Mallampati score is 4. Short thick neck. LUNGS: Have a fair airflow with rhonchi. HEART: S1 and S2. ABDOMEN: Soft, nontender. No organomegaly. EXTREMITIES: Right BKA. Left, some trace edema. NEUROLOGICALLY: Sleepy, arousable. MEDICATIONS: He is on bacitracin ointment to affected area, Brilinta 90 mg twice a day, Brovana inhaled twice a day, DuoNeb every 6 hours p.r.n., Ecotrin 81 mg daily, Flonase one spray each nostril daily, heparin 5000 units subcu every 12 hours, insulin coverage, Lipitor 10 mg daily, metoprolol tartrate 25 mg twice a day, meropenem 500 mg IV every 12 hours, Mucinex LA 600 mg twice a day, nasal saline 2 sprays each nostril every 2 hours p.r.n., Pepcid 20 mg at bedtime, Pulmicort inhaled twice a day, Santyl 1 g topically to affected area, Solu-Cortef 50 mg twice a day, Synthroid 50 mcg daily, TriCor 145 mg daily, Tylenol p.r.n. LABORATORY DATA: Shows hemoglobin 8.8, hematocrit 26.3, WBC 16.5, platelet is 112. Sodium 134, potassium 4, chloride 97, bicarbonate is 25, BUN is 58, creatinine is 4.1, glucose 236, calcium is 7.4, total bili 1.5, AST 83, ALT 39, alk phos is 123. Albumin is 2.5. Repeat blood culture, so far there is no growth. CAT scan of the head done yesterday which was unremarkable. IMPRESSION AND PLAN: Septic shock with gram-negative rods, repeat blood culture so far negative; renal failure, dialysis dependent; chronic obstructive lung disease, suspected hypoventilation syndrome; sleep apnea syndrome; coronary artery disease, coronary stent, cardiac diastolic dysfunction, cardiac arrhythmia, requiring pacemaker; gastroparesis; severe peripheral vascular disease, status post right below-knee amputation, may have Raynaud's phenomenon, still sleepy and lethargic, off all the sedatives, can it be just sleep apnea related daytime sleepiness, prednisone usual for him, in the past had been noncompliant but not so sleepy. I will send his urine for drug screen. Test that shows he is not taking anything else which is not given in the hospital. Gastric prophylaxis, deep venous thrombosis prophylaxis. Encourage BiPAP use. If continued to be sleepy, may need to consider daytime stimulant. Fall precaution. Thank you and we will follow with you. Jarred Escalera MD
[2018-01-23] MEDS: Levothyroxine 25 MCG TAB PO SCH (05:21)
--- NOTE | 2018-01-23 06:42 | CP.PCM.PN ---
Subjective - Date & Time of Evaluation Date of Evaluation: 01/23/18 Time of Evaluation: 06:20 - Subjective Subjective: No distress, awake,denies shortness of breath Reason for consultation and follow up:Cardiac evaluation of chest pain,follow up of coronary artery disease, History of PPM, admitted for diarrhea Seen and examined by me and Dr. Erickson Objective - Vital Signs/Intake and Output Vital Signs (last 24 hours): Temp Pulse Resp BP Pulse Ox 98.6 F 86 18 110/52 L 100 01/23/18 06:00 01/23/18 06:00 01/23/18 06:00 01/23/18 06:00 01/23/18 06:00 Intake and Output: 01/22/18 01/23/18 18:59 06:59 Intake Total 1020 Output Total 0 Balance 1020 - Medications Medications: Current Medications Acetaminophen (Tylenol 325mg Tab) 650 mg PO Q6H PRN PRN Reason: Pain, moderate (4-7) Last Admin: 01/23/18 06:26 Dose: 650 mg Albuterol/Ipratropium (Duoneb 3 Mg/0.5 Mg (3 Ml) Ud) 3 ml IH [id number] PRN PRN Reason: Shortness of Breath Last Admin: 01/22/18 08:18 Dose: 3 ml Arformoterol Tartrate (Brovana) 15 mcg IH [id number] [facility] Last Admin: 01/22/18 19:52 Dose: 15 mcg Aspirin (Ecotrin) 81 mg PO DAILY [facility] Last Admin: 01/22/18 12:58 Dose: 81 mg Atorvastatin Calcium (Lipitor) 10 mg PO HS [facility] Last Admin: 01/22/18 22:13 Dose: 10 mg Bacitracin (Bacitracin) 1 ea TOP BID [facility] Last Admin: 01/22/18 18:10 Dose: 1 ea Budesonide (Pulmicort Respules) 0.5 mg IH Q12H [facility] Last Admin: 01/22/18 19:53 Dose: 0.5 mg Collagenase (Santyl) 1 gm TOP DAILY [facility] Last Admin: 01/21/18 12:16 Dose: 1 applic Famotidine (Pepcid) 20 mg PO HS [facility] Last Admin: 01/22/18 22:13 Dose: 20 mg Fenofibrate (Tricor) 145 mg PO DAILY [facility] Last Admin: 01/22/18 12:57 Dose: 145 mg Fluticasone Propionate (Flonase) 1 actuation NS DAILY PRN PRN Reason: Nasal congestion Guaifenesin (Mucinex La) 600 mg PO BID PRN PRN Reason: Cough Heparin Sodium (Porcine) (Heparin) 5,000 units SC Q12 [facility]; Protocol Last Admin: 01/22/18 22:13 Dose: 5,000 units Hydrocortisone Sodium Succinate (Solu-Cortef) 50 mg IVP Q12 [facility] Last Admin: 01/22/18 22:14 Dose: 50 mg Meropenem/Sodium Chloride (Merrem Iv 500 Mg/Ns 50 Ml) 500 mg in 50 mls @ 100 mls/hr IVPB Q12 [facility]; Protocol Stop: 01/27/18 10:01 Last Admin: 01/22/18 22:14 Dose: 100 mls/hr Insulin Human Regular (Humulin R) 2 units SC AC [facility] Last Admin: 01/22/18 17:00 Dose: 2 units Insulin Human Regular (Humulin R Med) 0 units SC ACHS [facility]; Protocol Last Admin: 01/22/18 22:13 Dose: 3 unit Insulin Lispro Protam/Lispro Human (Humalog Mix 75/25) 10 units SC BID [facility] Latanoprost (Xalatan Opht) 0 ml OU HS [facility] Last Admin: 01/22/18 22:12 Dose: 2.5 ml Levothyroxine Sodium (Synthroid) 50 mcg PO 0600 [facility] Last Admin: 01/23/18 05:21 Dose: 50 mcg Metoprolol Tartrate (Lopressor) 25 mg PO BID [facility] Last Admin: 01/16/18 17:45 Dose: 25 mg Sodium Chloride ([place] Nasal [place]) 0 ml NS Q2 PRN PRN Reason: nasal congestion. Ticagrelor (Brilinta) 90 mg PO BID [facility] Last Admin: 01/22/18 11:50 Dose: Not Given - Labs Labs: 01/22/18 09:50 01/22/18 09:50 - Constitutional Appears: Non-toxic, No Acute Distress - Head Exam Head Exam: NORMAL INSPECTION, NORMOCEPHALIC - ENT Exam ENT Exam: Mucous Membranes Dry - Respiratory Exam Respiratory Exam: Decreased Breath Sounds, Clear to Ausculation Bilateral, NORMAL BREATHING PATTERN - Cardiovascular Exam Cardiovascular Exam: REGULAR RHYTHM, +S1, +S2 Additional comments: no JVD PPM Telemetry NSR 70's - GI/Abdominal Exam GI & Abdominal Exam: Distended, Soft, Normal Bowel Sounds - Exam Additional comments: ESRD on hemodialysis 3x a week had hemodialysis yesterday - Extremities Exam Additional comments: right BKA pearl wrapped left middle finger amputation left AV shunt positive bruit - Neurological Exam Neurological Exam: Alert, Awake - Psychiatric Exam Psychiatric exam: Normal Affect, Normal Mood - Skin Skin Exam: Dry, Normal Color, Warm Assessment and Plan - Assessment and Plan (Free Text) Assessment: 52 year old male obese who came in to the ER due to diarrhea for the past week prior to admission. History of very brittle insulin dependent diabetes mellitu s, diabetic neuropathy,diabetic retinopathy,nephropathy,end stage renal disease, on hemodialysis 3x a week, left arm AV shunt /fistula, hypertension, hyperlipidemia,TIA, coronary artery disease with stents,resistant to Plavix, on Brilinta. severe peripheral vascular disease, post right below knee amputation, left middle finger amputation,TIA, PPM for sick sinus syndrome. subdural hematoma due to fall, COPD, pancreatitis. No evidence of myocardial infarction. Troponin negative, Positive for C-difficile.Right BKA stump positive for VRE. Blood culture from 01/17 positive for serratia, repeat blood culture done 01/18/18, so far no growth after [address] of head done to rule out bleeding. CT showed no hemorrhage/bleeding.Refusing CPAP/BIPAP at night. For possible debridement of right stump. Cleared for surgery with moderate to high risk considering co-morbidities. Surgery will benefit patient. Plan: Had hemodialysis yesterday for 1.5 hours For possible debridement/surgery of right BKA stump On contact isolation Positive for C-difficile, right BKA stump positive for VRE, Blood culture positive for serratia Repeat blood culture done on 01/18, so far negative after 3 days Continue IV antibiotics as ordered by ID Blood pressure stable Heart rate stable Cardiac status stable Control glucose Nutritional support On ASA 81 mg daily,Lipitor 80 mg daily, Tricor 145 mg daily, Heparin 5000 units SC every 12 hours, Solucortef 100 mg IV every 8 hours Synthroid 50 mcg daily,Brilinta 90 mg BID Continue current treatment Continue current medications Chart reviewed Will follow up Plan and treatment discussed with Dr. Erickson
[2018-01-23] MEDS: Arformoterol 15 mcg/2 ml Inh Sol IH SCH ×2 (07:57→19:35)
[2018-01-23] MEDS: Budesonide 0.5 mg/2 ml Inhal Susp UD IH SCH (07:57)
[2018-01-23] MEDS ORDERED: Insulin Regular 1 UNITS/0.01 ML ML SC ONE ×2 (08:55→09:12)
[2018-01-23 09:15] LABS: INR 1.77; PARTIAL THROMBOPLASTIN TIME 33.8 Seconds (25.1-36.5); PROTHROMBIN TIME 20.6 SECONDS (9.4-12.5)
--- NOTE | 2018-01-23 10:03 | PN ---
DATE: 01/22/2018 REASON FOR CONSULTATION AND FOLLOWUP: Cardiac evaluation, history of coronary artery disease, admitted with sepsis and severe PAD. The patient is stable. Discussed yesterday with mother about the patient's condition. This note is in addition to dictated by nurse practitioner. RECOMMENDATIONS: Continue broad-spectrum antibiotics. Head CT was done because altered mental status is negative. The patient is probably very lethargic because after got Ativan because the patient could not sleep and was restless, now the patient is mentally awake and alert. So far, no evidence of acute NC. Continue Brilinta, continue aspirin, continue DVT prophylaxis, continue atorvastatin, continue metoprolol, and continue antibiotics. Overall, the patient's condition is critical. Long-term prognosis is guarded. We will follow with you. Addendum, just now the work the patient want to do the revision of the stump. The patient is clear from cardiology point of view to go for revision of the stump under anesthesia with a [id number] risk because underlying comorbidity, but no contraindication, no evidence of ischemia, no evidence of congestive heart failure, no evidence of arrhythmia. The patient has a pacemaker and history of coronary artery disease, clear to go for surgery with [id number] risk, we will hold Brilinta. Thank you Dr. Potter for providing us the opportunity in taking care of the patient, Jason Berger. Jarred Erickson MD
[2018-01-23] MEDS: Bacitracin 500 Units/gm Oint Foilpak UD TOP SCH ×2 (10:15→18:00)
--- NOTE | 2018-01-23 10:16 | CP.PCM.CON ---
History of Present Illness - History of Present Illness History of Present Illness: Palliative consult requested by Dr Mik Potter Reason: Goals of care and advance care planning 52 year old male with history of ESRD on HD, DM, HTN , neuropathy who prnsted to ED on 01/16/18 with cramping abdominal pain, frequent black stools. He denied nausea,diarrhea, fever, chest pain. He has chronic shortness of breath. During t his admission the patient developed sepsis, blood culture positive for Serratia Marcesans, right BKA wound positve for Klebsiella Oxytoca, Serratia and VRE Chest X ray 01/16: limited left basilar airspace and pleural effusion, cardiomegaly, borderline pulmonary vascular congestion. CT of Ab/pelvis 01 16: : No intra abdominal findings, no evidence of colitis/enteritis. EKG: NSR ventricukar pacing CT of right lower extremity 01/18: no gross evidence of osteomyelitis or abscess. Labs 01/16: Wbc 8.6, Hgb 9.5, Plt 105,NA 138, K 4.1, BUN 26, Supervisor Coffee 4.1, Glucose 299, AST 45, ALT 19.Troponin 012, BNP 11911, Hep B antibody +, Hep B core negative Head CT 01/21/18: Negative PMHX; ESRD on HD, DM, CHF, CVA, anemia, sepsis, neuropathy. PSHx: R BKA 10/2017, left third finger amputation, 3 weeks ago, pacemaker, L AV fistula, L cornea transplant. Social History: Never smoker, no alcohol or drug use. Lives alone in senior housing. His mother lives in the same building. Family History:Mother alive> CAD, DM. Father . Advance Care Planning: The patient has a health care proxy, his mother, Ervin Hall is his POA. Review of Systems - Constitutional Constitutional: Weakness - Cardiovascular Additional comments: negative - Respiratory Respiratory: Dyspnea on Exertion - Gastrointestinal Additional comments: negative - Genitourinary Additional comments: negative - Musculoskeletal Musculoskeletal: Limited Range of Motion, Muscle Weakness - Integumentary Additional comments: swelling /tenderness right BKA stump and left - Neurological Neurological: Paresthesias, Tingling - Psychiatric Psychiatric: Depression - Endocrine Additional Comments: neagtive - Hematologic/Lymphatic Additional comments: anemia Past Patient History - Infectious Disease Hx of Infectious Diseases: None - Tetanus Immunizations Tetanus Immunization: Up to Date - Past Medical History & Family History Past Medical History?: Yes - Past Social History Smoking Status: Never Smoked - CARDIAC Hx Congestive Heart Failure: Yes Hx Hypertension: Yes - PULMONARY Hx Chronic Obstructive Pulmonary Disease (COPD): Yes - NEUROLOGICAL HX Cerebrovascular Accident: Yes - HEENT Hx HEENT Problems: Yes Hx Blind: No Hx Cataracts: Yes Hx Deafness: No Hx Difficulty Chewing: No - RENAL Hx Renal Failure: Yes (on HD) - ENDOCRINE/METABOLIC Hx Diabetes Mellitus Type 2: Yes - HEMATOLOGICAL/ONCOLOGICAL Hx AIDS: No Hx Anemia: Yes Hx Blood Transfusions: Yes Hx Blood Transfusion Reaction: No - INTEGUMENTARY Hx Dermatological Problems: No - MUSCULOSKELETAL/RHEUMATOLOGICAL Hx Arthritis: Yes - GASTROINTESTINAL Hx Gastrointestinal Disorders: Yes Hx Colostomy: No Hx Liver Failure: Yes Hx Pancreatitis: Yes - GENITOURINARY/GYNECOLOGICAL Hx Genitourinary Disorders: Yes Hx Hematuria: Yes - PSYCHIATRIC Hx Psychophysiologic Disorder: Yes Hx Anxiety: Yes Hx Substance Use: No - SURGICAL HISTORY Hx Amputation: Yes Hx Cardiac Catheterization: Yes Hx Cholecystectomy: Yes Hx Coronary Stent: Yes Hx Musculoskeletal Surgery: Yes - ANESTHESIA Hx Anesthesia: Yes Hx Anesthesia Reactions: No Hx Malignant Hyperthermia: No Meds Allergies/Adverse Reactions: Allergies Allergy/AdvReac Type Severity Reaction Status Date / Time insulin aspart [From Novolog] Allergy Intermediate RASH Verified 01/15/18 23:49 moxifloxacin Allergy Intermediate RASH Verified 01/15/18 23:49 Penicillins Allergy Intermediate RASH Verified 01/15/18 23:49 insulin regular Allergy ITCHING Verified 01/15/18 23:49 [From Novolin R Regular U-100 Insuln] - Medications Medications: Current Medications Acetaminophen (Tylenol 325mg Tab) 650 mg PO Q6H PRN PRN Reason: Pain, moderate (4-7) Last Admin: 01/23/18 06:26 Dose: 650 mg Albuterol/Ipratropium (Duoneb 3 Mg/0.5 Mg (3 Ml) Ud) 3 ml IH [id number] PRN PRN Reason: Shortness of Breath Last Admin: 01/22/18 08:18 Dose: 3 ml Arformoterol Tartrate (Brovana) 15 mcg IH [id number] [facility] Last Admin: 01/23/18 07:57 Dose: 15 mcg Aspirin (Ecotrin) 81 mg PO DAILY [facility] Last Admin: 01/22/18 12:58 Dose: 81 mg Atorvastatin Calcium (Lipitor) 10 mg PO HS [facility] Last Admin: 01/22/18 22:13 Dose: 10 mg Bacitracin (Bacitracin) 1 ea TOP BID [facility] Last Admin: 01/22/18 18:10 Dose: 1 ea Budesonide (Pulmicort Respules) 0.5 mg IH Q12H [facility] Last Admin: 01/23/18 07:57 Dose: 0.5 mg Collagenase (Santyl) 1 gm TOP DAILY [facility] Last Admin: 01/21/18 12:16 Dose: 1 applic Famotidine (Pepcid) 20 mg PO HS [facility] Last Admin: 01/22/18 22:13 Dose: 20 mg Fenofibrate (Tricor) 145 mg PO DAILY [facility] Last Admin: 01/22/18 12:57 Dose: 145 mg Fluticasone Propionate (Flonase) 1 actuation NS DAILY PRN PRN Reason: Nasal congestion Guaifenesin (Mucinex La) 600 mg PO BID PRN PRN Reason: Cough Heparin Sodium (Porcine) (Heparin) 5,000 units SC Q12 [facility]; Protocol Last Admin: 01/22/18 22:13 Dose: 5,000 units Hydrocortisone Sodium Succinate (Solu-Cortef) 50 mg IVP Q12 [facility] Last Admin: 01/22/18 22:14 Dose: 50 mg Meropenem/Sodium Chloride (Merrem Iv 500 Mg/Ns 50 Ml) 500 mg in 50 mls @ 100 mls/hr IVPB Q12 [facility]; Protocol Stop: 01/27/18 10:01 Last Admin: 01/22/18 22:14 Dose: 100 mls/hr Insulin Human Regular (Humulin R) 10 units SC AC [facility] Insulin Human Regular (Humulin R High) 0 units SC ACHS [facility]; Protocol Latanoprost (Xalatan Opht) 0 ml OU HS [facility] Last Admin: 01/22/18 22:12 Dose: 2.5 ml Levothyroxine Sodium (Synthroid) 50 mcg PO 0600 [facility] Last Admin: 01/23/18 05:21 Dose: 50 mcg Metoprolol Tartrate (Lopressor) 25 mg PO BID [facility] Last Admin: 01/16/18 17:45 Dose: 25 mg Sodium Chloride ([place] Nasal [place]) 0 ml NS Q2 PRN PRN Reason: nasal congestion. Ticagrelor (Brilinta) 90 mg PO BID [facility] Last Admin: 01/22/18 11:50 Dose: Not Given Results - Vital Signs Recent Vital Signs: Last Vital Signs Temp 98.6 F 01/23/18 06:00 Pulse 86 01/23/18 06:00 Resp 18 01/23/18 06:00 BP 110/52 L 01/23/18 06:00 Pulse Ox 100 01/23/18 06:00 - Labs Result Diagrams: 01/22/18 09:50 01/22/18 09:50 Labs: Laboratory Results - last 24 hr 01/22/18 01/22/18 01/23/18 11:26 21:22 08:50 PT 20.6 H INR 1.77 APTT 33.8 POC Glucose (mg/dL) 235 H 388 H Assessment & Plan - Assessment and Plan (Free Text) Assessment: 52 year old male with history of COPD, CHF DM, ESRD on HD, HTN, sepsis, R BKA who is admitted with diarrhea, melena, bacteremia and infected R BKA stump. The patient is alert, oriented. He is tearful, expressed frustration related to frequent hospitalizations. States it is very hard to think positivley because he never seems to "get better". He feels that he needs more assistance with ADL's at home at home. When asked if he would consider a facility which offers assisted living he declined. He states he wants to stay in his own apartment. His fiends and family are close by. He also expressed that he is having d ifficulty sleeping at night. He is being seen by Dr Malin from Psych and has relayed his feelings of frustration and despair. He states that he wants to live and does not want to give up on life. Advance care planning discussed, Chu's health proxy was completed in 2012. His mother, Ervin is named as POA. I explained that his mother is elderly and recommended that he consider adding another person to assist her with health care decisions. Chu expressed that he wants to remain a full code, but that if his condition were terminal or irreversible, he would not want his life prolonged by extraordinary measures. Time spent with patient in goals of care discussion, 30 minutes Plan: Goals of care and advance care planning. Sepsis/ bacteremia: Allergic to PCN, continue Merrem> day # 6 of 14. Right BKA stump wound: Surgery following, possible revision of BKA stump ESRD: Continue HD. CAD: Brillinta on hold, Continue ASA, Metoprolol, Atorvastatin, cardiology f ollowing. DM: Humalog 10 units BID dialy, Fingersticks ACHS Humulin ISS coverage,
[2018-01-23] MEDS: MEROPENEM 500 MG in NS 500 MG/50 ML BAG IVPB SCH ×2 (10:18→23:11)
--- NOTE | 2018-01-23 10:18 | CP.PCM.PN ---
<Lolis Rivas - Last Filed: 01/23/18 11:51> Subjective - Date & Time of Evaluation Date of Evaluation: 01/23/18 Time of Evaluation: 07:00 - Subjective Subjective: Infectious Disease Progress Note for Simon Zepeda PGY3 Patient seen and examined at bedside. There were no acute overnight events as per nursing staff. Patient is lying comfortable in bed and remains afebrile. He has no complaints at this time. Objective - Vital Signs/Intake and Output Vital Signs (last 24 hours): Temp Pulse Resp BP Pulse Ox 98.6 F 86 18 110/52 L 100 01/23/18 06:00 01/23/18 06:00 01/23/18 06:00 01/23/18 06:00 01/23/18 06:00 Intake and Output: 01/23/18 01/23/18 06:59 18:59 Intake Total 1020 Output Total 0 Balance 1020 - Medications Medications: Current Medications Acetaminophen (Tylenol 325mg Tab) 650 mg PO Q6H PRN PRN Reason: Pain, moderate (4-7) Last Admin: 01/23/18 06:26 Dose: 650 mg Albuterol/Ipratropium (Duoneb 3 Mg/0.5 Mg (3 Ml) Ud) 3 ml IH [id number] PRN PRN Reason: Shortness of Breath Last Admin: 01/22/18 08:18 Dose: 3 ml Arformoterol Tartrate (Brovana) 15 mcg IH [id number] [facility] Last Admin: 01/23/18 07:57 Dose: 15 mcg Aspirin (Ecotrin) 81 mg PO DAILY [facility] Last Admin: 01/22/18 12:58 Dose: 81 mg Atorvastatin Calcium (Lipitor) 10 mg PO HS [facility] Last Admin: 01/22/18 22:13 Dose: 10 mg Bacitracin (Bacitracin) 1 ea TOP BID [facility] Last Admin: 01/22/18 18:10 Dose: 1 ea Budesonide (Pulmicort Respules) 0.5 mg IH Q12H [facility] Last Admin: 01/23/18 07:57 Dose: 0.5 mg Collagenase (Santyl) 1 gm TOP DAILY [facility] Last Admin: 01/21/18 12:16 Dose: 1 applic Famotidine (Pepcid) 20 mg PO [facility] Last Admin: 01/22/18 22:13 Dose: 20 mg Fenofibrate (Tricor) 145 mg PO DAILY [facility] Last Admin: 01/22/18 12:57 Dose: 145 mg Fluticasone Propionate (Flonase) 1 actuation NS DAILY PRN PRN Reason: Nasal congestion Guaifenesin (Mucinex La) 600 mg PO BID PRN PRN Reason: Cough Heparin Sodium (Porcine) (Heparin) 5,000 units SC Q12 [facility]; Protocol Last Admin: 01/22/18 22:13 Dose: 5,000 units Hydrocortisone Sodium Succinate (Solu-Cortef) 50 mg IVP Q12 [facility] Last Admin: 01/22/18 22:14 Dose: 50 mg Meropenem/Sodium Chloride (Merrem Iv 500 Mg/Ns 50 Ml) 500 mg in 50 mls @ 100 mls/hr IVPB Q12 [facility]; Protocol Stop: 01/27/18 10:01 Last Admin: 01/22/18 22:14 Dose: 100 mls/hr Insulin Human Regular (Humulin R) 10 units SC AC [facility] Insulin Human Regular (Humulin R High) 0 units SC ACHS [facility]; Protocol Latanoprost (Xalatan Opht) 0 ml OU HS [facility] Last Admin: 01/22/18 22:12 Dose: 2.5 ml Levothyroxine Sodium (Synthroid) 50 mcg PO 0600 [facility] Last Admin: 01/23/18 05:21 Dose: 50 mcg Metoprolol Tartrate (Lopressor) 25 mg PO BID [facility] Last Admin: 01/16/18 17:45 Dose: 25 mg Sodium Chloride ([place] Nasal [place]) 0 ml NS Q2 PRN PRN Reason: nasal congestion. Ticagrelor (Brilinta) 90 mg PO BID [facility] Last Admin: 01/22/18 11:50 Dose: Not Given - Labs Labs: 01/22/18 09:50 01/22/18 09:50 PT 20.6 SECONDS (9.4-12.5) H 01/23/18 08:50 INR 1.77 01/23/18 08:50 APTT 33.8 Seconds (25.1-36.5) 01/23/18 08:50 - Constitutional Appears: No Acute Distress, Chronically Ill - Head Exam Head Exam: ATRAUMATIC, NORMAL INSPECTION, NORMOCEPHALIC - Eye Exam Eye Exam: Normal appearance, PERRL Pupil Exam: NORMAL ACCOMODATION - ENT Exam ENT Exam: Mucous Membranes Moist - Respiratory Exam Respiratory Exam: Clear to Ausculation Bilateral, NORMAL BREATHING PATTERN. absent: Rales, Rhonchi, Wheezes - Cardiovascular Exam Cardiovascular Exam: REGULAR RHYTHM, +S1, +S2. absent: Gallop, Rubs, Murmur - GI/Abdominal Exam GI & Abdominal Exam: Soft, Normal Bowel Sounds. absent: Rigid, Tenderness, Mass, Rebound - Extremities Exam Extremities Exam: absent: Normal Inspection Additional comments: R BKA stump with purulent drainage L pinky necrotic R middle finger amputation black stump - Neurological Exam Neurological Exam: Alert, Awake, CN II-XII Intact, Oriented x3 - Psychiatric Exam Psychiatric exam: Depressed, Normal Affect - Skin Skin Exam: Dry, Warm Assessment and Plan - Assessment and Plan (Free Text) Assessment: 1. Sepsis - secondary to R stump cellulitis - Positive for Serratia Bacteremia 2. R TMA stump gangrene 3. Hx of Guerline glabrata fungemia 4. Hx of bilateral HCAP 5. Hx of sepsis secondary to C.diff 6. ESRD on HD 7. DM 8. CAD s/p PCI 9. Diabetic retinopathy 10. Obesity 11. Hx of pancreatitis Plan: Labs and imagine reviewed. Patient will have debridement of R BKA stump today. Today is day #6 of Merrem. Patient will need to complete 10-14 days. Recommend patient follow up with vascular surgeon for L necrotic 5th finger. Case seen, discussed and reviewed with Dr. Neli Rivas PGY3 <Pj Quinteros - Last Filed: 01/23/18 16:28> Objective - Vital Signs/Intake and Output Vital Signs (last 24 hours): Temp Pulse Resp BP Pulse Ox 98.6 F 83 18 110/52 L 100 01/23/18 06:00 01/23/18 14:00 01/23/18 06:00 01/23/18 06:00 01/23/18 06:00 Intake and Output: 01/23/18 01/23/18 06:59 18:59 Intake Total 1020 Output Total 0 Balance 1020 - Medications Medications: Current Medications Acetaminophen (Tylenol 325mg Tab) 650 mg PO Q6H PRN PRN Reason: Pain, moderate (4-7) Last Admin: 11/06/18 06:26 Dose: 650 mg Albuterol/Ipratropium (Duoneb 3 Mg/0.5 Mg (3 Ml) Ud) 3 ml IH [id number] PRN PRN Reason: Shortness of Breath Last Admin: 01/22/18 08:18 Dose: 3 ml Arformoterol Tartrate (Brovana) 15 mcg IH [id number] [facility] Last Admin: 01/23/18 07:57 Dose: 15 mcg Aspirin (Ecotrin) 81 mg PO DAILY [facility] Last Admin: 01/23/18 10:07 Dose: Not Given Atorvastatin Calcium (Lipitor) 10 mg PO HS [facility] Last Admin: 01/22/18 22:13 Dose: 10 mg Bacitracin (Bacitracin) 1 ea TOP BID [facility] Last Admin: 01/23/18 10:15 Dose: 1 ea Budesonide (Pulmicort Respules) 0.5 mg IH Q12H [facility] Last Admin: 01/23/18 07:57 Dose: 0.5 mg Collagenase (Santyl) 1 gm TOP DAILY [facility] Last Admin: 01/23/18 12:00 Dose: Not Given Duloxetine HCl (Cymbalta) 20 mg PO DAILY [facility] Famotidine (Pepcid) 20 mg PO HS [facility] Last Admin: 01/22/18 22:13 Dose: 20 mg Fenofibrate (Tricor) 145 mg PO DAILY [facility] Last Admin: 01/23/18 10:15 Dose: 145 mg Fluticasone Propionate (Flonase) 1 actuation NS DAILY PRN PRN Reason: Nasal congestion Guaifenesin (Mucinex La) 600 mg PO BID PRN PRN Reason: Cough Heparin Sodium (Porcine) (Heparin) 5,000 units SC Q12 [facility]; Protocol Last Admin: 01/23/18 10:07 Dose: Not Given Hydrocortisone Sodium Succinate (Solu-Cortef) 50 mg IVP Q12 [facility] Last Admin: 01/23/18 10:15 Dose: 50 mg Meropenem/Sodium Chloride (Merrem Iv 500 Mg/Ns 50 Ml) 500 mg in 50 mls @ 100 mls/hr IVPB Q12 [facility]; Protocol Insulin Detemir (Levemir) 10 unit SC HS [facility] Insulin Human Regular (Humulin R) 10 units SC AC [facility] Last Admin: 01/23/18 12:00 Dose: Not Given Insulin Human Regular (Humulin R High) 0 units SC ACHS [facility]; Protocol Last Admin: 01/23/18 16:18 Dose: 10 units Latanoprost (Xalatan Opht) 0 ml OU HS [facility] Last Admin: 01/22/18 22:12 Dose: 2.5 ml Levothyroxine Sodium (Synthroid) 50 mcg PO 0600 [facility] Last Admin: 01/23/18 05:21 Dose: 50 mcg Metoprolol Tartrate (Lopressor) 25 mg PO BID [facility] Last Admin: 01/16/18 17:45 Dose: 25 mg Sodium Chloride ([place] Nasal [place]) 0 ml NS Q2 PRN PRN Reason: nasal congestion. Ticagrelor (Brilinta) 90 mg PO BID [facility] Last Admin: 01/22/18 11:50 Dose: Not Given Zaleplon (Sonata) 5 mg PO HS [facility] - Labs Labs: 01/22/18 09:50 01/22/18 09:50 PT 20.6 SECONDS (9.4-12.5) H 01/23/18 08:50 INR 1.77 01/23/18 08:50 APTT 33.8 Seconds (25.1-36.5) 01/23/18 08:50 Assessment and Plan - Assessment and Plan (Free Text) Plan: Infectious Diseases Attending Physician Attestation Patient seen and examined, discussed with back office medical assistant. I have reviewed the patient's history of present illness, past medical, family and social histories, personal history, physical exam, lab findings and imaging studies. I agree with the above findings, assessment and plan. In addition, continue Merrem for this patient with Serratia bacteremia from leg stump infection. Follow up further plans of surgery. Will monitor clinically.
[2018-01-23] MEDS: Collagenase 250 Units/gm Ointment(30 gm) TOP SCH ×2 (10:19→12:00)
--- NOTE | 2018-01-23 10:46 | CP.PCM.PN ---
<LiudmilaKuldip R - Last Filed: 01/23/18 10:43> Subjective - Date & Time of Evaluation Date of Evaluation: 01/23/18 Time of Evaluation: 10:43 - Subjective Subjective: PGY-2 GI progess note for Dr Ahn No acute events overnight. Patient will have debridement of R BKA stump today. No fevers overnight. He is drowsy but arousable. He states that he is no longer having diarrhea. Stated his abdominal discomfort "comes and goes". Denied emesis. Objective - Vital Signs/Intake and Output Vital Signs (last 24 hours): Temp Pulse Resp BP Pulse Ox 98.6 F 86 18 110/52 L 100 01/23/18 06:00 01/23/18 06:00 01/23/18 06:00 01/23/18 06:00 01/23/18 06:00 Intake and Output: 01/23/18 01/23/18 06:59 18:59 Intake Total 1020 Output Total 0 Balance 1020 - Medications Medications: Current Medications Acetaminophen (Tylenol 325mg Tab) 650 mg PO Q6H PRN PRN Reason: Pain, moderate (4-7) Last Admin: 01/23/18 06:26 Dose: 650 mg Albuterol/Ipratropium (Duoneb 3 Mg/0.5 Mg (3 Ml) Ud) 3 ml IH [id number] PRN PRN Reason: Shortness of Breath Last Admin: 01/22/18 08:18 Dose: 3 ml Arformoterol Tartrate (Brovana) 15 mcg IH [id number] [facility] Last Admin: 01/23/18 07:57 Dose: 15 mcg Aspirin (Ecotrin) 81 mg PO DAILY [facility] Last Admin: 01/23/18 10:07 Dose: Not Given Atorvastatin Calcium (Lipitor) 10 mg PO HS [facility] Last Admin: 01/22/18 22:13 Dose: 10 mg Bacitracin (Bacitracin) 1 ea TOP BID [facility] Last Admin: 01/23/18 10:15 Dose: 1 ea Budesonide (Pulmicort Respules) 0.5 mg IH Q12H [facility] Last Admin: 01/23/18 07:57 Dose: 0.5 mg Collagenase (Santyl) 1 gm TOP DAILY [facility] Last Admin: 01/23/18 10:19 Dose: 1 applic Famotidine (Pepcid) 20 mg PO HS [facility] Last Admin: 01/22/18 22:13 Dose: 20 mg Fenofibrate (Tricor) 145 mg PO DAILY [facility] Last Admin: 01/23/18 10:15 Dose: 145 mg Fluticasone Propionate (Flonase) 1 actuation NS DAILY PRN PRN Reason: Nasal congestion Guaifenesin (Mucinex La) 600 mg PO BID PRN PRN Reason: Cough Heparin Sodium (Porcine) (Heparin) 5,000 units SC Q12 [facility]; Protocol Last Admin: 01/23/18 10:07 Dose: Not Given Hydrocortisone Sodium Succinate (Solu-Cortef) 50 mg IVP Q12 [facility] Last Admin: 01/23/18 10:15 Dose: 50 mg Insulin Human Regular (Humulin R) 10 units SC AC [facility] Insulin Human Regular (Humulin R High) 0 units SC ACHS [facility]; Protocol Latanoprost (Xalatan Opht) 0 ml OU HS [facility] Last Admin: 01/22/18 22:12 Dose: 2.5 ml Levothyroxine Sodium (Synthroid) 50 mcg PO 0600 [facility] Last Admin: 01/23/18 05:21 Dose: 50 mcg Metoprolol Tartrate (Lopressor) 25 mg PO BID [facility] Last Admin: 01/16/18 17:45 Dose: 25 mg Sodium Chloride ([place] Nasal [place]) 0 ml NS Q2 PRN PRN Reason: nasal congestion. Ticagrelor (Brilinta) 90 mg PO BID [facility] Last Admin: 01/22/18 11:50 Dose: Not Given - Labs Labs: 01/22/18 09:50 01/22/18 09:50 PT 20.6 SECONDS (9.4-12.5) H 01/23/18 08:50 INR 1.77 01/23/18 08:50 APTT 33.8 Seconds (25.1-36.5) 01/23/18 08:50 - Additional Findings Additional findings: - Constitutional Appears: Non-toxic, No Acute Distress, Older Than Stated Age, Chronically Ill - Head Exam Head Exam: ATRAUMATIC, NORMOCEPHALIC - Eye Exam Eye Exam: EOMI, Normal appearance, PERRL - ENT Exam ENT Exam: Mucous Membranes Moist - Respiratory Exam Respiratory Exam: Clear to Auscultation Bilateral, NORMAL BREATHING PATTERN. absent: Rales, Rhonchi, Wheezes - Cardiovascular Exam Cardiovascular Exam: REGULAR RHYTHM, +S1, +S2. absent: Gallop, Rubs, Systolic Murmur - GI/Abdominal Exam GI & Abdominal Exam: Normal Bowel Sounds, Soft. absent: Distended, Firm, Guarding, Rebound, Rigid, Tenderness - Extremities Exam Extremities exam: Positive for: full ROM Additional comments: S/p R BKA, dressing site c/d/i; L middle finger necrotic down to PIP, no abnormal drainage noted, painful with movement - Neurological Exam Neurological exam: Alert, CN II-XII Intact, Oriented x3 - Psychiatric Exam Psychiatric exam: Normal Affect, Normal Mood - Skin Skin Exam: Dry, Intact, Warm Assessment and Plan - Assessment and Plan (Free Text) Plan: 52 y/o Male w/ PMHx of CHF, HTN, BPH, CVA, DM2, anemia, ESRD on HD (T, Th, Sat), Neuropathy and recent R BKA with a PSHx of R BKA, cornea transplant, cholecystectomy presenting to the emergency department complaining of severe diarrhea intermittent for the past 2 weeks, associated with diffuse abdominal pain: Diarrhea, Resolved -currently afebrile, white count increased possibly due to hydrocortisone vs infectious process -cdiff toxin and antigen negative -vre screen negative -CT abd/pelvis po contrast 01/16: * Small left pleural effusion and consolidation at left lung base. Mild ascites. No acute intra-abdominal findings. No evidence of enteritis or colitis -blood cx growing serratia marcescens and right leg wound cx growing klebsiella, serratia and VRE -meropenem 500mg ivp q12h per ID -Recommend caution with steroids in bacteremia, however, patient has been on long-term steroids and complete cessation will cause adrenal insufficiency. Discussed with client manager large law. Seen and discussed with Dr Ahn. <Jacquelin Ahn V - Last Filed: 01/23/18 19:07> Objective - Vital Signs/Intake and Output Vital Signs (last 24 hours): Temp Pulse Resp BP Pulse Ox 97.8 F 71 16 78/33 L 95 01/23/18 18:45 01/23/18 18:45 01/23/18 18:45 01/23/18 18:45 01/23/18 18:45 Intake and Output: 01/23/18 01/24/18 18:59 06:59 Intake Total 300 Output Total 0 Balance 300 - Medications Medications: Current Medications Acetaminophen (Tylenol 325mg Tab) 650 mg PO Q6H PRN PRN Reason: Pain, moderate (4-7) Last Admin: 01/23/18 06:26 Dose: 650 mg Albuterol/Ipratropium (Duoneb 3 Mg/0.5 Mg (3 Ml) Ud) 3 ml IH [id number] PRN PRN Reason: Shortness of Breath Last Admin: 01/22/18 08:18 Dose: 3 ml Arformoterol Tartrate (Brovana) 15 mcg IH [id number] [facility] Last Admin: 01/23/18 07:57 Dose: 15 mcg Aspirin (Ecotrin) 81 mg PO DAILY [facility] Last Admin: 01/23/18 10:07 Dose: Not Given Atorvastatin Calcium (Lipitor) 10 mg PO HS [facility] Last Admin: 01/22/18 22:13 Dose: 10 mg Bacitracin (Bacitracin) 1 ea TOP BID [facility] Last Admin: 01/23/18 10:15 Dose: 1 ea Budesonide (Pulmicort Respules) 0.5 mg IH Q12H [facility] Last Admin: 01/23/18 07:57 Dose: 0.5 mg Collagenase (Santyl) 1 gm TOP DAILY [facility] Last Admin: 01/23/18 12:00 Dose: Not Given Duloxetine HCl (Cymbalta) 20 mg PO DAILY [facility] Famotidine (Pepcid) 20 mg PO HS [facility] Last Admin: 01/22/18 22:13 Dose: 20 mg Fenofibrate (Tricor) 145 mg PO DAILY [facility] Last Admin: 01/23/18 10:15 Dose: 145 mg Fentanyl (Fentanyl) 25 mcg IV Q15M PRN PRN Reason: Pain, severe (8-10) Fluticasone Propionate (Flonase) 1 actuation NS DAILY PRN PRN Reason: Nasal congestion Guaifenesin (Mucinex La) 600 mg PO BID PRN PRN Reason: Cough Heparin Sodium (Porcine) (Heparin) 5,000 units SC Q12 [facility]; Protocol Last Admin: 01/23/18 10:07 Dose: Not Given Hydrocortisone Sodium Succinate (Solu-Cortef) 50 mg IVP Q12 [facility] Last Admin: 01/23/18 10:15 Dose: 50 mg Meropenem/Sodium Chloride (Merrem Iv 500 Mg/Ns 50 Ml) 500 mg in 50 mls @ 100 mls/hr IVPB Q12 [facility]; Protocol Sodium Chloride (Sodium Chloride 0.9%) 1,000 mls @ 75 mls/hr IV .[id number] [facility] Stop: 01/23/18 20:31 Insulin Detemir (Levemir) 10 unit SC HS [facility] Insulin Human Regular (Humulin R) 10 units SC AC [facility] Last Admin: 01/23/18 12:00 Dose: Not Given Insulin Human Regular (Humulin R High) 0 units SC ACHS [facility]; Protocol Last Admin: 01/23/18 16:18 Dose: 10 units Latanoprost (Xalatan Opht) 0 ml OU HS [facility] Last Admin: 01/22/18 22:12 Dose: 2.5 ml Levothyroxine Sodium (Synthroid) 50 mcg PO 0600 [facility] Last Admin: 01/23/18 05:21 Dose: 50 mcg Metoprolol Tartrate (Lopressor) 25 mg PO BID [facility] Last Admin: 01/16/18 17:45 Dose: 25 mg Sodium Chloride (Roxie Nasal [place]) 0 ml NS Q2 PRN PRN Reason: nasal congestion. Ticagrelor (Brilinta) 90 mg PO BID [facility] Last Admin: 01/22/18 11:50 Dose: Not Given Zaleplon (Sonata) 5 mg PO HS [facility] - Labs Labs: 01/22/18 09:50 01/22/18 09:50 PT 20.6 SECONDS (9.4-12.5) H 01/23/18 08:50 INR 1.77 01/23/18 08:50 APTT 33.8 Seconds (25.1-36.5) 01/23/18 08:50 Attending/Attestation - Attestation I have personally seen and examined this patient.: Yes I have fully participated in the care of the patient.: Yes I have reviewed all pertinent clinical information, including history, physical exam and plan: Yes Notes (Text): This is an addendum to GI followup report dictated by the Greenhouse Assistant. The patient was seen and evaluated earlier. Medical records, lab studies, imagings were reviewed. Last 24 hours events reviewed. Agreed with the above treatment plan as outlined in Greenhouse Assistant 's notes with the addition of the following Patient comfortable Appears depressed Expresses no hope On examination abdomen soft Slight drop in blood count Hb 8.8 from 9.9 Followup hb Continue antibiotics as per ID Would benefit from psychiatric evaluation 01/23/18 19:05
[2018-01-23] MEDS ORDERED: Insulin Reg-HIGH-Coverage SC SCH (11:30)
--- NOTE | 2018-01-23 11:56 | PN ---
DATE: 01/23/2018 REASON FOR CONSULTATION AND FOLLOWUP: Cardiac evaluation, history of coronary artery disease, history of diabetic nephropathy/neuropathy, peripheral arterial disease status post right BKA, status post PTCA of coronaries. This note is in addition to dictated by nurse practitioner. Discussed in length with patient, Ab yesterday, also spoke to the mother about overall patient's condition. This morning also spoke to Dr. Schmitt, primary care doctor. Patient's overall condition is critical. Prognosis fdc is guarded. Patient had half dialysis yesterday, could not tolerate, still feels fluid overloaded. History of Gram negative sepsis again. Last time the LASHAWN was negative for endocarditis. History of coronary artery disease, history of stent, history of severe PAD status post right BKA, history of amputation of left middle finger, history of diabetic retinopathy/neuropathy, peripheral arterial disease and end-stage renal disease on dialysis. RECOMMENDATIONS: Continue aspirin. Brilinta is on hold for possible revision of the graft. Continue metoprolol. Continue wound care. Discussed with . PLAN: Patient is cleared to go for wound revision with moderate to high comorbidity. No absolute contraindication. We also informed the mother and discussed with her. Overall patient's condition is critical. Long-term prognosis is guarded. Jarred Erickson MD
[2018-01-23] MEDS: Insulin Regular 1 UNITS/0.01 ML ML SC SCH ×2 (12:00→16:18)
--- NOTE | 2018-01-23 13:23 | CP.PCM.PN ---
<Jojo Crouch - Last Filed: 01/23/18 13:45> Subjective - Date & Time of Evaluation Date of Evaluation: 01/23/18 Time of Evaluation: 07:00 - Subjective Subjective: Jojo Crouch DO, PGY-2: Progress Note for Dr. Potter Patient was seen and examined at bedside. Patient reports he is losing hope. He reports having no one to talk to and not having physical terapy s/p right BKA. Otherwise, he did not appear confused or delirious today. Objective - Vital Signs/Intake and Output Vital Signs (last 24 hours): Temp Pulse Resp BP Pulse Ox 98.6 F 77 18 110/52 L 100 01/23/18 06:00 01/23/18 10:00 01/23/18 06:00 01/23/18 06:00 01/23/18 06:00 Intake and Output: 01/23/18 01/23/18 06:59 18:59 Intake Total 1020 Output Total 0 Balance 1020 - Medications Medications: Current Medications Acetaminophen (Tylenol 325mg Tab) 650 mg PO Q6H PRN PRN Reason: Pain, moderate (4-7) Last Admin: 01/23/18 06:26 Dose: 650 mg Albuterol/Ipratropium (Duoneb 3 Mg/0.5 Mg (3 Ml) Ud) 3 ml IH [id number] PRN PRN Reason: Shortness of Breath Last Admin: 01/22/18 08:18 Dose: 3 ml Arformoterol Tartrate (Brovana) 15 mcg IH [id number] [facility] Last Admin: 01/23/18 07:57 Dose: 15 mcg Aspirin (Ecotrin) 81 mg PO DAILY [facility] Last Admin: 01/23/18 10:07 Dose: Not Given Atorvastatin Calcium (Lipitor) 10 mg PO HS [facility] Last Admin: 01/22/18 22:13 Dose: 10 mg Bacitracin (Bacitracin) 1 ea TOP BID [facility] Last Admin: 01/23/18 10:15 Dose: 1 ea Budesonide (Pulmicort Respules) 0.5 mg IH Q12H [facility] Last Admin: 01/23/18 07:57 Dose: 0.5 mg Collagenase (Santyl) 1 gm TOP DAILY [facility] Last Admin: 01/23/18 10:19 Dose: 1 applic Duloxetine HCl (Cymbalta) 20 mg PO DAILY [facility] Famotidine (Pepcid) 20 mg PO HS [facility] Last Admin: 01/22/18 22:13 Dose: 20 mg Fenofibrate (Tricor) 145 mg PO DAILY [facility] Last Admin: 01/23/18 10:15 Dose: 145 mg Fluticasone Propionate (Flonase) 1 actuation NS DAILY PRN PRN Reason: Nasal congestion Guaifenesin (Mucinex La) 600 mg PO BID PRN PRN Reason: Cough Heparin Sodium (Porcine) (Heparin) 5,000 units SC Q12 [facility]; Protocol Last Admin: 01/23/18 10:07 Dose: Not Given Hydrocortisone Sodium Succinate (Solu-Cortef) 50 mg IVP Q12 [facility] Last Admin: 01/23/18 10:15 Dose: 50 mg Insulin Detemir (Levemir) 10 unit SC HS [facility] Insulin Human Regular (Humulin R) 10 units SC AC [facility] Insulin Human Regular (Humulin R High) 0 units SC ACHS [facility]; Protocol Latanoprost (Xalatan Opht) 0 ml OU [facility] Last Admin: 01/22/18 22:12 Dose: 2.5 ml Levothyroxine Sodium (Synthroid) 50 mcg PO 0600 [facility] Last Admin: 01/23/18 05:21 Dose: 50 mcg Metoprolol Tartrate (Lopressor) 25 mg PO BID [facility] Last Admin: 01/16/18 17:45 Dose: 25 mg Sodium Chloride ([place] Nasal [place]) 0 ml NS Q2 PRN PRN Reason: nasal congestion. Ticagrelor (Brilinta) 90 mg PO BID [facility] Last Admin: 01/22/18 11:50 Dose: Not Given Zaleplon (Sonata) 5 mg PO HS [facility] - Labs Labs: 01/22/18 09:50 01/22/18 09:50 PT 20.6 SECONDS (9.4-12.5) H 01/23/18 08:50 INR 1.77 01/23/18 08:50 APTT 33.8 Seconds (25.1-36.5) 01/23/18 08:50 - Constitutional Appears: No Acute Distress - Head Exam Head Exam: ATRAUMATIC, NORMOCEPHALIC - Eye Exam Eye Exam: EOMI, Normal appearance - ENT Exam ENT Exam: Mucous Membranes Moist - Neck Exam Neck Exam: Normal Inspection - Respiratory Exam Respiratory Exam: Clear to Ausculation Bilateral, NORMAL BREATHING PATTERN. absent: Accessory Muscle Use - Cardiovascular Exam Cardiovascular Exam: RRR, +S1, +S2 - GI/Abdominal Exam GI & Abdominal Exam: Soft - Extremities Exam Extremities Exam: absent: Calf Tenderness Additional comments: right BKA noted - Back Exam Back Exam: absent: CVA tenderness (L), CVA tenderness (R) - Neurological Exam Neurological Exam: Alert, Awake, Oriented x3 - Psychiatric Exam Psychiatric exam: Depressed, Normal Affect - Skin Skin Exam: Dry, Normal Color, Warm Assessment and Plan - Assessment and Plan (Free Text) Assessment: 52 year old male with a past medical history notable for ESRD, CAD with MD 4 months ago, right BKA, and left third digit amputation who presents with melena and diarrhea. His blood cultures are growing Serratia Marcesans from infected right BKA. Surgery will take him to the OR for local wound debridement of the right BKA. Plan: 1) Sepsis secondary to Serratia Marcescans bacteremia from right BKA stump infection - Case was discussed with surgical team, who recommends revision of the right BKA and DRIL procedure for the left arm - Surgery to take patient to OR for local wound debridement of right BKA; Brillinta held and patient made NPO - Merropenem 500 mg q12h day 6 of 2) ESRD - Continue with dialysis 3) CAD - Continue Brillinta 90 mg BID to start immediately after procedure - Aspirin 81 mg - Metroprolol 25 mg BID (currently held) - Atorvastatin 10 mg HS - Dr. Erickson consulted, appreciate recommendations 4) DM II - Humulin 10 mg AC with fingerstick BG - Levemir 10 mg HS 5) Peripheral Neuropathy - Pregabalin 50 mg HS - Percocet 10 mg q6h PRN for pain 6) Upper respiratory symptoms - Mucinex LA 650 PRN - Flonase PRN 7) Hypothyroidism - Levothyroxine 50 mcg PO daily 8) Hyperlipidemia - Fenofibrate 145 mg PO daily 9) Glaucoma - Latanoprost drops OU 10) Adrenal insufficiency - Solucortef 50 mg q12h 11) RENATA - Continue with noninvasive positive airway pressure as per pulmonology's recommendations 12) Depressed mood in a patient with multiple, life-threatening comorbidities - Dr. Malin consulted, patient may benefit from cognitive behavioral therapy and medications, appreciate recommendations 13) Physical therapy in the setting of recent BKA - Physical therapy evaluation submitted Disposition: Guarded, discussed with patient and his mother the patient current comorbid conditions Case was reviewed and discussed with attending physician, Dr. Potter <Gallo Potter S - Last Filed: 01/23/18 15:52> Objective - Vital Signs/Intake and Output Vital Signs (last 24 hours): Temp Pulse Resp BP Pulse Ox 98.6 F 83 18 110/52 L 100 01/23/18 06:00 01/23/18 14:00 01/23/18 06:00 01/23/18 06:00 01/23/18 06:00 Intake and Output: 01/23/18 01/23/18 06:59 18:59 Intake Total 1020 Output Total 0 Balance 1020 - Medications Medications: Current Medications Acetaminophen (Tylenol 325mg Tab) 650 mg PO Q6H PRN PRN Reason: Pain, moderate (4-7) Last Admin: 01/23/18 06:26 Dose: 650 mg Albuterol/Ipratropium (Duoneb 3 Mg/0.5 Mg (3 Ml) Ud) 3 ml IH [id number] PRN PRN Reason: Shortness of Breath Last Admin: 01/22/18 08:18 Dose: 3 ml Arformoterol Tartrate (Brovana) 15 mcg IH [id number] [facility] Last Admin: 01/23/18 07:57 Dose: 15 mcg Aspirin (Ecotrin) 81 mg PO DAILY [facility] Last Admin: 01/23/18 10:07 Dose: Not Given Atorvastatin Calcium (Lipitor) 10 mg PO HS [facility] Last Admin: 01/22/18 22:13 Dose: 10 mg Bacitracin (Bacitracin) 1 ea TOP BID [facility] Last Admin: 01/23/18 10:15 Dose: 1 ea Budesonide (Pulmicort Respules) 0.5 mg IH Q12H [facility] Last Admin: 01/23/18 07:57 Dose: 0.5 mg Collagenase (Santyl) 1 gm TOP DAILY [facility] Last Admin: 01/23/18 12:00 Dose: Not Given Duloxetine HCl (Cymbalta) 20 mg PO DAILY [facility] Famotidine (Pepcid) 20 mg PO HS [facility] Last Admin: 01/22/18 22:13 Dose: 20 mg Fenofibrate (Tricor) 145 mg PO DAILY [facility] Last Admin: 01/23/18 10:15 Dose: 145 mg Fluticasone Propionate (Flonase) 1 actuation NS DAILY PRN PRN Reason: Nasal congestion Guaifenesin (Mucinex La) 600 mg PO BID PRN PRN Reason: Cough Heparin Sodium (Porcine) (Heparin) 5,000 units SC Q12 [facility]; Protocol Last Admin: 01/23/18 10:07 Dose: Not Given Hydrocortisone Sodium Succinate (Solu-Cortef) 50 mg IVP Q12 [facility] Last Admin: 01/23/18 10:15 Dose: 50 mg Meropenem/Sodium Chloride (Merrem Iv 500 Mg/Ns 50 Ml) 500 mg in 50 mls @ 100 mls/hr IVPB Q12 [facility]; Protocol Insulin Detemir (Levemir) 10 unit SC HS [facility] Insulin Human Regular (Humulin R) 10 units SC AC [facility] Last Admin: 01/23/18 12:00 Dose: Not Given Insulin Human Regular (Humulin R High) 0 units SC ACHS [facility]; Protocol Last Admin: 01/23/18 14:06 Dose: 15 units Latanoprost (Xalatan Opht) 0 ml OU HS [facility] Last Admin: 01/22/18 22:12 Dose: 2.5 ml Levothyroxine Sodium (Synthroid) 50 mcg PO 0600 [facility] Last Admin: 01/23/18 05:21 Dose: 50 mcg Metoprolol Tartrate (Lopressor) 25 mg PO BID [facility] Last Admin: 01/16/18 17:45 Dose: 25 mg Sodium Chloride ([place] Nasal [place]) 0 ml NS Q2 PRN PRN Reason: nasal congestion. Ticagrelor (Brilinta) 90 mg PO BID [facility] Last Admin: 01/22/18 11:50 Dose: Not Given Zaleplon (Sonata) 5 mg PO HS [facility] - Labs Labs: 01/22/18 09:50 01/22/18 09:50 PT 20.6 SECONDS (9.4-12.5) H 01/23/18 08:50 INR 1.77 01/23/18 08:50 APTT 33.8 Seconds (25.1-36.5) 01/23/18 08:50 Assessment and Plan - Assessment and Plan (Free Text) Assessment: Pt seen and examined. I have reviewed the note of the medical doctor and agree with it. I have discussed the assessment and plan with the resident. I have reviewed the patient's labs and medications. Pt with sepsis and and is going to the OR for R leg wound. I spoke to surgery. The pt is going to get HD and get more fluid taken off. He asked me about his prognosis and I did let him know that his prognosis is not good. He has severe PAD, CAD, DM-2 and is on HD. He was upset and I gave him emotional support. Pt will need psych evaluation. He has been nonadherent to his treatment plan. I spoke to Dr Erickson and he also believes that the pt's prognosis is poor.
[2018-01-23] MEDS: Insulin Reg-HIGH-Coverage SC SCH ×3 (14:06→23:53)
--- NOTE | 2018-01-23 14:48 | CON ---
DATE: 01/23/2018 HISTORY OF PRESENT ILLNESS: The patient is 52-year-old male with multiple medical issues including CHF, hypertension, benign prostate hyperplasia, CVA, diabetes, anemia, end-stage renal disease on hemodialysis, Monday, and Monday, recent right below-knee amputation, cornea transplant, cholecystectomy. The patient was admitted on the medical side for diarrhea. Psych consult was called because the patient had multiple medical issues and has depressed mood and losing hope. Also, medical team suggested cognitive behavioral therapy. This creative writer is very familiar with this patient from the previous consultation services here in [place]. The patient was seen today with medical student. The patient's affect was tearful during the interview, but the patient seemed to be very well related to this creative writer. The patient seems to be hopeless about the medical issues, and to be honest, the patient has reasons to feel this way considering the fact very poorly controlled diabetes, overwhelming dialysis, also below-knee amputation, diarrhea. This is understandable that the patient has hopeless statement, but during the interview, this creative writer utilized cognitive behavioral therapy technique and was able to transform negative statement to something positive. The patient was given assignment to do till tomorrow. The patient gladly accepted that plan. Also, in regard of medications, the patient might benefit from Cymbalta. This creative writer also discussed Sonata for insomnia at the nighttime. Risks, benefits, and alternatives discussed with the patient. The patient is willing to try those medications. The patient denied hearing voices, denied seeing things. The patient denied any thoughts of killing himself or others, but the patient appears to be very depressed. PHYSICAL EXAMINATION: VITAL SIGNS: Seems to be stable. Temperature 98.6, pulse is 86. MEDICATIONS: Reviewed. Tylenol, DuoNeb, Brovana, aspirin, Lipitor, bacitracin, Pulmicort, collagenase, Cymbalta will be started today, Pepcid, TriCor, Flonase, Mucinex, heparin, , hydrocortisone, insulin, also Xalatan, Synthroid, Lopressor, Brilinta, Sonata will be given at the nighttime for insomnia. LABORATORY DATA: Reviewed. Most recent was from yesterday. WBC 16.5. Coagulation reviewed. Blood gas reviewed. Chemistry reviewed. Serology reviewed. MENTAL STATUS EXAMINATION: The patient presented to be depressed with tearful affect, which seems to be mood congruent. Thought process was coherent and goal directed. Thought content, the patient reported feeling of hopelessness, but adamantly denied any thoughts of killing himself or others. The patient is not psychotic. Insight and judgment seemed to be limited, but improving. Impulses are well controlled. IMPRESSION: Rule out major depressive disorder, rule out mood disorder due to general medical condition, rule out anxiety disorder due to general medical condition. PLAN: Cymbalta was started, Sonata was started. Risks, benefits, and alternatives discussed with the patient. CBT technique utilized. The patient was provided with assignment to do for tomorrow. We will try our best to help the patient with transforming negative thoughts to something positive. Thank you very much for letting me participate in care of your patient. We will follow up and advise accordingly. Dea Tejada MD
[2018-01-23] MEDS ORDERED: Bupivacaine 0.5% 50 ML IJ ONE (16:13)
[2018-01-23] MEDS ORDERED: Midazolam 2 MG/2 ML VIAL ONE (17:02)
[2018-01-23] MEDS ORDERED: Propofol 10 mg/ml Inj (20 ML) ONE (17:02)
[2018-01-23] MEDS ORDERED: Phenylephrine 10 mg/ml Inj ONE (17:16)
--- NOTE | 2018-01-23 18:18 | PCM.SURG1 ---
Surgeon's Initial Post Op Note - Surgeon's Notes Surgeon: Dr. Urrutia Lean Manager: Dr. Hernandez PGY4 Type of Anesthesia: General LMA Pre-Operative Diagnosis: necrotic right BKA wound Operative Findings: necrotic tissue Post-Operative Diagnosis: same Operation Performed: sharp and versajet debridement of right BKA with wound vac placement Specimen/Specimens Removed: right BKA wound culture Estimated Blood Loss: EBL {In ML}: 10 Blood Products Given: N/A Drains Used: Wound Vac Post-Op Condition: Good Date of Surgery/Procedure: 01/23/18 Time of Surgery/Procedure: 18:18
[2018-01-23] MEDS ORDERED: Sodium Chloride 0.9% 1,000 ML IV SCH (18:30)
[2018-01-23] MEDS ORDERED: Morphine 2 mg/ml ISec IVP ONE (19:56)
[2018-01-23] MEDS: Latanoprost 2.5 ml Opht Soln OU SCH (23:13)
[2018-01-23] MEDS: Insulin Detemir 100 units/ml Vial (Levemir) SC SCH (23:16)
[2018-01-23] MEDS: oxyCODONE 5 mg Immediate Release Tab PO PRN (23:59)
--- NOTE | 2018-01-24 02:36 | PN ---
DATE: 01/23/2018 PULMONARY PROGRESS NOTE REFERRING PHYSICIAN: Gallo Potter MD SUBJECTIVE: He is lying in the bed, sleepy, arousable, and goes back to sleep. Had a midline catheter placed, not very compliant with the BiPAP/CPAP. No nausea. No vomiting or diarrhea. No leg swelling reported. OBJECTIVE: GENERAL: In no acute distress. VITAL SIGNS: Temperature is 98, heart rate is 66, respiratory rate is 18, blood pressure 81/33, and pulse ox 95% on 3 L nasal cannula. HEENT: Moist mucous membranes. Crowded airway. Mallampati score is 4. NECK: Supple. No JVD. LUNGS: Has a poor effort, but fair airflow with few rhonchi. HEART: S1 and S2. ABDOMEN: Soft and nontender. No organomegaly. EXTREMITIES: Has a right-sided BKA. Left leg trace edema. NEUROLOGIC: Sleepy, arousable, go back to sleep. MEDICATIONS: Bacitracin ointment to affected area, Brilinta 90 mg twice a day, Brovana 50 mcg twice a day, Cymbalta 20 mg daily, albuterol/Atrovent nebulizer every 6 hours p.r.n., Ecotrin 81 mg daily, fentanyl 25 mcg IV every 15 minutes p.r.n., Flonase 1 spray each nostril daily, heparin 5000 units subcutaneously every 12 hours, insulin coverage, Levemir 10 units subcutaneously at bedtime, Lipitor 25 mg twice a day, meropenem 1 g IV every 12 hours, Mucinex 600 mg twice a day, nasal saline every 2 hours p.r.n., Pepcid 20 mg at bedtime, Pulmicort inhaled twice a day, Santyl affected area daily, Solu-Cortef 50 mg every 12 hours, Sonata 5 mg at bedtime, Synthroid 50 mcg daily, TriCor 145 mg daily, and Tylenol p.r.n. LABORATORY DATA: Shows hemoglobin 8.8 and hematocrit 26.3. INR 1.77. PTT 34. Blood sugar this morning 304. Repeat blood culture, there is no growth. IMPRESSION AND PLAN: Resolving septic shock; renal failure, dialysis dependent; chronic obstructive lung disease; coronary artery disease; cardiac arrhythmia, requiring pacemaker; hypoventilation syndrome; sleep apnea syndrome; also cardiac diastolic dysfunction; gastroparesis; peripheral vascular disease, status post right below-knee amputation; may have Raynaud's phenomenon; and very lethargic. The patient was seen by palliative care, being followed by Cardiology. We will get his TSH level in the morning, cortisol level in the morning. Avoid sedatives. Encourage BiPAP use. Follow up labs in the morning. Thank you and we will follow with you. Jarred Escalera MD
[2018-01-24] MEDS: Levothyroxine 25 MCG TAB PO SCH (05:43)
--- NOTE | 2018-01-24 06:57 | CP.PCM.PN ---
<Lolis Rivas - Last Filed: 01/24/18 12:44> Subjective - Date & Time of Evaluation Date of Evaluation: 01/24/18 Time of Evaluation: 07:00 - Subjective Subjective: Infectious Disease Progress Note for Simon Zepeda PGY3 Patient seen and examined at bedside. There were no acute overnight events as per nursing staff. Patient is lying comfortable in bed. He is in good spirits with no complaints at this time. Objective - Vital Signs/Intake and Output Vital Signs (last 24 hours): Temp Pulse Resp BP Pulse Ox 97.9 F 76 19 128/54 L 100 01/24/18 06:00 01/24/18 06:00 01/24/18 06:00 01/24/18 06:00 01/24/18 06:00 Intake and Output: 01/23/18 01/24/18 18:59 06:59 Intake Total 300 120 Output Total 0 0 Balance 300 120 - Medications Medications: Current Medications Acetaminophen (Tylenol 325mg Tab) 650 mg PO Q6H PRN PRN Reason: Pain, moderate (4-7) Last Admin: 01/23/18 06:26 Dose: 650 mg Albuterol/Ipratropium (Duoneb 3 Mg/0.5 Mg (3 Ml) Ud) 3 ml IH [id number] PRN PRN Reason: Shortness of Breath Last Admin: 01/22/18 08:18 Dose: 3 ml Arformoterol Tartrate (Brovana) 15 mcg IH [id number] [facility] Last Admin: 01/23/18 19:35 Dose: Not Given Aspirin (Ecotrin) 81 mg PO DAILY [facility] Last Admin: 01/23/18 10:07 Dose: Not Given Atorvastatin Calcium (Lipitor) 10 mg PO HS [facility] Last Admin: 01/23/18 23:11 Dose: 10 mg Bacitracin (Bacitracin) 1 ea TOP BID [facility] Last Admin: 01/23/18 18:00 Dose: Not Given Budesonide (Pulmicort Respules) 0.5 mg IH Q12H [facility] Last Admin: 01/23/18 07:57 Dose: 0.5 mg Collagenase (Santyl) 1 gm TOP DAILY [facility] Last Admin: 01/23/18 12:00 Dose: Not Given Duloxetine HCl (Cymbalta) 20 mg PO DAILY [facility] Last Admin: 01/23/18 12:00 Dose: Not Given Famotidine (Pepcid) 20 mg PO HS [facility] Last Admin: 01/23/18 23:11 Dose: 20 mg Fenofibrate (Tricor) 145 mg PO DAILY [facility] Last Admin: 01/23/18 10:15 Dose: 145 mg Fentanyl (Fentanyl) 25 mcg IV Q15M PRN PRN Reason: Pain, severe (8-10) Fluticasone Propionate (Flonase) 1 actuation NS DAILY PRN PRN Reason: Nasal congestion Guaifenesin (Mucinex La) 600 mg PO BID PRN PRN Reason: Cough Heparin Sodium (Porcine) (Heparin) 5,000 units SC Q12 [facility]; Protocol Last Admin: 01/23/18 23:52 Dose: Not Given Hydrocortisone Sodium Succinate (Solu-Cortef) 50 mg IVP Q12 [facility] Last Admin: 01/23/18 23:12 Dose: 50 mg Meropenem/Sodium Chloride (Merrem Iv 500 Mg/Ns 50 Ml) 500 mg in 50 mls @ 100 mls/hr IVPB Q12 [facility]; Protocol Last Admin: 01/23/18 23:11 Dose: 100 mls/hr Insulin Detemir (Levemir) 10 unit SC HS [facility] Last Admin: 01/23/18 23:16 Dose: 10 unit Insulin Human Regular (Humulin R) 10 units SC AC [facility] Last Admin: 01/23/18 16:18 Dose: Not Given Insulin Human Regular (Humulin R High) 0 units SC ACHS [facility]; Protocol Last Admin: 01/23/18 23:53 Dose: Not Given Latanoprost (Xalatan Opht) 0 ml OU [facility] Last Admin: 01/23/18 23:13 Dose: 2.5 ml Levothyroxine Sodium (Synthroid) 50 mcg PO 0600 [facility] Last Admin: 01/24/18 05:43 Dose: 50 mcg Metoprolol Tartrate (Lopressor) 25 mg PO BID [facility] Last Admin: 01/16/18 17:45 Dose: 25 mg Oxycodone HCl (Oxycodone Immediate Release Tab) 5 mg PO Q6H PRN PRN Reason: Pain, moderate (4-7) Last Admin: 01/23/18 23:59 Dose: 5 mg Sodium Chloride ([place] Nasal [place]) 0 ml NS Q2 PRN PRN Reason: nasal congestion. Ticagrelor (Brilinta) 90 mg PO BID [facility] Last Admin: 01/22/18 11:50 Dose: Not Given Zaleplon (Sonata) 5 mg PO HS [facility] Last Admin: 01/23/18 23:12 Dose: 5 mg - Labs Labs: 01/22/18 09:50 01/22/18 09:50 PT 20.6 SECONDS (9.4-12.5) H 01/23/18 08:50 INR 1.77 01/23/18 08:50 APTT 33.8 Seconds (25.1-36.5) 01/23/18 08:50 - Constitutional Appears: No Acute Distress, Chronically Ill - Head Exam Head Exam: ATRAUMATIC, NORMAL INSPECTION, NORMOCEPHALIC - Eye Exam Eye Exam: Normal appearance, PERRL Pupil Exam: NORMAL ACCOMODATION, PERRL - ENT Exam ENT Exam: Mucous Membranes Moist - Respiratory Exam Respiratory Exam: Clear to Ausculation Bilateral, NORMAL BREATHING PATTERN. absent: Rales, Rhonchi, Wheezes - Cardiovascular Exam Cardiovascular Exam: REGULAR RHYTHM, +S1, +S2. absent: Gallop, Rubs, Murmur - GI/Abdominal Exam GI & Abdominal Exam: Soft, Normal Bowel Sounds. absent: Rigid, Tenderness, Mass, Rebound - Extremities Exam Additional comments: R leg stump wound vac in place- sanginous drainage R pinky finger necrotic - Neurological Exam Neurological Exam: Alert, Awake, CN II-XII Intact, Oriented x3 - Psychiatric Exam Psychiatric exam: Normal Affect, Normal Mood - Skin Skin Exam: Dry, Warm Assessment and Plan - Assessment and Plan (Free Text) Assessment: 1. Sepsis - secondary to R stump cellulitis s/p debridement POD #1 - Positive for Serratia Bacteremia 2. R TMA stump gangrene 3. Hx of Guerline glabrata fungemia 4. Hx of bilateral HCAP 5. Hx of sepsis secondary to C.diff 6. ESRD on HD 7. DM 8. CAD s/p PCI 9. Diabetic retinopathy 10. Obesity 11. Hx of pancreatitis Plan: Labs and imaging reviewed. Will continue Merrem day # 7. Will need to complete 14 days total of Merrem. Discussed case with primary team and will continue to monitor clinically. Case seen, discussed and reviewed with Dr. Neli Rivas PGY3 <Pj Quinteros S - Last Filed: 01/24/18 17:34> Objective - Vital Signs/Intake and Output Vital Signs (last 24 hours): Temp Pulse Resp BP Pulse Ox 97.1 F L 90 19 162/74 H 100 01/24/18 12:00 01/24/18 12:00 01/24/18 12:00 01/24/18 12:00 01/24/18 06:00 Intake and Output: 01/24/18 01/24/18 06:59 18:59 Intake Total 120 Output Total 0 Balance 120 - Medications Medications: Current Medications Acetaminophen (Tylenol 325mg Tab) 650 mg PO Q6H PRN PRN Reason: Pain, moderate (4-7) Last Admin: 01/23/18 06:26 Dose: 650 mg Albuterol/Ipratropium (Duoneb 3 Mg/0.5 Mg (3 Ml) Ud) 3 ml IH [id number] PRN PRN Reason: Shortness of Breath Last Admin: 01/22/18 08:18 Dose: 3 ml Arformoterol Tartrate (Brovana) 15 mcg IH [id number] [facility] Last Admin: 01/24/18 07:54 Dose: 15 mcg Aspirin (Ecotrin) 81 mg PO DAILY [facility] Last Admin: 01/24/18 10:20 Dose: 81 mg Atorvastatin Calcium (Lipitor) 80 mg PO HS [facility] Bacitracin (Bacitracin) 1 ea TOP BID [facility] Last Admin: 01/24/18 10:21 Dose: 1 ea Budesonide (Pulmicort Respules) 0.5 mg IH Q12H [facility] Last Admin: 01/24/18 07:55 Dose: 0.5 mg Collagenase (Santyl) 1 gm TOP DAILY [facility] Last Admin: 01/24/18 10:21 Dose: Not Given Duloxetine HCl (Cymbalta) 40 mg PO DAILY [facility] Famotidine (Pepcid) 20 mg PO HS [facility] Last Admin: 01/23/18 23:11 Dose: 20 mg Fenofibrate (Tricor) 145 mg PO DAILY [facility] Last Admin: 01/24/18 10:20 Dose: 145 mg Fluticasone Propionate (Flonase) 1 actuation NS DAILY PRN PRN Reason: Nasal congestion Guaifenesin (Mucinex La) 600 mg PO BID PRN PRN Reason: Cough Heparin Sodium (Porcine) (Heparin) 5,000 units SC Q12 [facility]; Protocol Last Admin: 01/24/18 10:22 Dose: 5,000 units Hydrocortisone Sodium Succinate (Solu-Cortef) 50 mg IVP DAILY [facility] Meropenem/Sodium Chloride (Merrem Iv 500 Mg/Ns 50 Ml) 500 mg in 50 mls @ 100 mls/hr IVPB Q12 [facility]; Protocol Last Admin: 01/24/18 10:32 Dose: 100 mls/hr Insulin Detemir (Levemir) 10 unit SC HS [facility] Last Admin: 01/23/18 23:16 Dose: 10 unit Insulin Human Regular (Humulin R) 10 units SC AC [facility] Last Admin: 01/24/18 13:14 Dose: Not Given Insulin Human Regular (Humulin R High) 0 units SC ACHS [facility]; Protocol Last Admin: 01/24/18 13:16 Dose: 7 units Latanoprost (Xalatan Opht) 0 ml OU HS [facility] Last Admin: 01/23/18 23:13 Dose: 2.5 ml Levothyroxine Sodium (Synthroid) 50 mcg PO 0600 [facility] Last Admin: 01/24/18 05:43 Dose: 50 mcg Metoprolol Tartrate (Lopressor) 25 mg PO BID [facility] Last Admin: 01/24/18 10:50 Dose: Not Given Oxycodone HCl (Oxycodone Immediate Release Tab) 5 mg PO Q6H PRN PRN Reason: Pain, moderate (4-7) Last Admin: 01/24/18 15:58 Dose: 5 mg Sodium Chloride ([place] Nasal [place]) 0 ml NS Q2 PRN PRN Reason: nasal congestion. Ticagrelor (Brilinta) 90 mg PO BID [facility] Last Admin: 01/24/18 10:20 Dose: 90 mg Zaleplon (Sonata) 5 mg PO [facility] Last Admin: 01/23/18 23:12 Dose: 5 mg - Labs Labs: 01/24/18 15:45 01/24/18 15:45 PT 20.6 SECONDS (9.4-12.5) H 01/23/18 08:50 INR 1.77 01/23/18 08:50 APTT 33.8 Seconds (25.1-36.5) 01/23/18 08:50 Assessment and Plan - Assessment and Plan (Free Text) Plan: Infectious Diseases Attending Physician Attestation Patient seen and examined, discussed with medical sonographer. I have reviewed the patient's history of present illness, past medical, family and social histories, personal history, physical exam, lab findings and imaging studies. I agree with the above findings, assessment and plan. In addition, continue Merrem for this patient with Serratia bacteremia from leg stump infection - should complete 14 days. Follow up further plans of surgery. Will continue to monitor clinically.
--- NOTE | 2018-01-24 07:30 | CP.PCM.PN ---
<Jojo Crouch - Last Filed: 01/24/18 11:38> Subjective - Date & Time of Evaluation Date of Evaluation: 01/24/18 Time of Evaluation: 07:30 - Subjective Subjective: Jojo Crouch DO, PGY-2: Progress Note for Dr. Potter Patient was seen and examined at bedside. Patient reports having an appetite and feeling better today. He reports that his pain is controlled. He denies any nausea, vomiting, diarrhea. Objective - Vital Signs/Intake and Output Vital Signs (last 24 hours): Temp Pulse Resp BP Pulse Ox 97.9 F 76 19 128/54 L 100 01/24/18 06:00 01/24/18 06:00 01/24/18 06:00 01/24/18 06:00 01/24/18 06:00 Intake and Output: 01/24/18 01/24/18 06:59 18:59 Intake Total 120 Output Total 0 Balance 120 - Medications Medications: Current Medications Acetaminophen (Tylenol 325mg Tab) 650 mg PO Q6H PRN PRN Reason: Pain, moderate (4-7) Last Admin: 01/23/18 06:26 Dose: 650 mg Albuterol/Ipratropium (Duoneb 3 Mg/0.5 Mg (3 Ml) Ud) 3 ml IH [id number] PRN PRN Reason: Shortness of Breath Last Admin: 01/22/18 08:18 Dose: 3 ml Arformoterol Tartrate (Brovana) 15 mcg IH [id number] [facility] Last Admin: 01/23/18 19:35 Dose: Not Given Aspirin (Ecotrin) 81 mg PO DAILY [facility] Last Admin: 01/23/18 10:07 Dose: Not Given Atorvastatin Calcium (Lipitor) 10 mg PO HS [facility] Last Admin: 01/23/18 23:11 Dose: 10 mg Bacitracin (Bacitracin) 1 ea TOP BID [facility] Last Admin: 01/23/18 18:00 Dose: Not Given Budesonide (Pulmicort Respules) 0.5 mg IH Q12H [facility] Last Admin: 01/23/18 07:57 Dose: 0.5 mg Collagenase (Santyl) 1 gm TOP DAILY [facility] Last Admin: 01/23/18 12:00 Dose: Not Given Duloxetine HCl (Cymbalta) 20 mg PO DAILY [facility] Last Admin: 01/23/18 12:00 Dose: Not Given Famotidine (Pepcid) 20 mg PO HS [facility] Last Admin: 01/23/18 23:11 Dose: 20 mg Fenofibrate (Tricor) 145 mg PO DAILY [facility] Last Admin: 01/23/18 10:15 Dose: 145 mg Fentanyl (Fentanyl) 25 mcg IV Q15M PRN PRN Reason: Pain, severe (8-10) Fluticasone Propionate (Flonase) 1 actuation NS DAILY PRN PRN Reason: Nasal congestion Guaifenesin (Mucinex La) 600 mg PO BID PRN PRN Reason: Cough Heparin Sodium (Porcine) (Heparin) 5,000 units SC Q12 [facility]; Protocol Last Admin: 01/23/18 23:52 Dose: Not Given Hydrocortisone Sodium Succinate (Solu-Cortef) 50 mg IVP Q12 [facility] Last Admin: 01/23/18 23:12 Dose: 50 mg Meropenem/Sodium Chloride (Merrem Iv 500 Mg/Ns 50 Ml) 500 mg in 50 mls @ 100 mls/hr IVPB Q12 [facility]; Protocol Last Admin: 01/23/18 23:11 Dose: 100 mls/hr Insulin Detemir (Levemir) 10 unit SC HS [facility] Last Admin: 01/23/18 23:16 Dose: 10 unit Insulin Human Regular (Humulin R) 10 units SC AC [facility] Last Admin: 01/23/18 16:18 Dose: Not Given Insulin Human Regular (Humulin R High) 0 units SC ACHS [facility]; Protocol Last Admin: 01/23/18 23:53 Dose: Not Given Latanoprost (Xalatan Opht) 0 ml OU [facility] Last Admin: 01/23/18 23:13 Dose: 2.5 ml Levothyroxine Sodium (Synthroid) 50 mcg PO 0600 [facility] Last Admin: 01/24/18 05:43 Dose: 50 mcg Metoprolol Tartrate (Lopressor) 25 mg PO BID [facility] Last Admin: 01/16/18 17:45 Dose: 25 mg Oxycodone HCl (Oxycodone Immediate Release Tab) 5 mg PO Q6H PRN PRN Reason: Pain, moderate (4-7) Last Admin: 01/23/18 23:59 Dose: 5 mg Sodium Chloride ([place] Nasal Media) 0 ml NS Q2 PRN PRN Reason: nasal congestion. Ticagrelor (Brilinta) 90 mg PO BID [facility] Last Admin: 01/22/18 11:50 Dose: Not Given Zaleplon (Sonata) 5 mg PO HS [facility] Last Admin: 01/23/18 23:12 Dose: 5 mg - Labs Labs: 01/22/18 09:50 01/22/18 09:50 PT 20.6 SECONDS (9.4-12.5) H 01/23/18 08:50 INR 1.77 01/23/18 08:50 APTT 33.8 Seconds (25.1-36.5) 01/23/18 08:50 - Constitutional Appears: Non-toxic, No Acute Distress - Head Exam Head Exam: ATRAUMATIC, NORMOCEPHALIC - Eye Exam Eye Exam: EOMI, Normal appearance - ENT Exam ENT Exam: Mucous Membranes Moist - Neck Exam Neck Exam: Normal Inspection - Respiratory Exam Respiratory Exam: Clear to Ausculation Bilateral, NORMAL BREATHING PATTERN. absent: Accessory Muscle Use - Cardiovascular Exam Cardiovascular Exam: RRR, +S1, +S2 - GI/Abdominal Exam GI & Abdominal Exam: Soft, Normal Bowel Sounds - Extremities Exam Extremities Exam: absent: Calf Tenderness Additional comments: wound vacuum in place - Back Exam Back Exam: absent: CVA tenderness (L), CVA tenderness (R) - Neurological Exam Neurological Exam: Alert, Awake, Oriented x3 - Psychiatric Exam Psychiatric exam: Normal Affect, Normal Mood - Skin Skin Exam: Dry, Intact, Normal Color, Warm Assessment and Plan - Assessment and Plan (Free Text) Assessment: 52 year old male with a past medical history notable for ESRD, CAD with MT 4 m onths ago, right BKA, and left third digit amputation who presents with melena and diarrhea. His blood cultures are growing Serratia Marcesans from infected right BKA. Today, patient is s/p local debridement and wound vacuum placement of the right BKA. Plan: 1) Sepsis secondary to Serratia Marcescans bacteremia from right BKA stump infection - Patient is POD #1 from local wound debridement and wound vacuum placement on right BKA - Merropenem 500 mg q12h day 7 of 13 2) ESRD - Continue with dialysis TTS 3) CAD - Continue Brillinta 90 mg BID - Aspirin 81 mg - Metroprolol 25 mg BID (currently held) - Atorvastatin 80 mg HS - Dr. Erickson consulted, appreciate recommendations 4) DM II - Humulin 10 mg AC with fingerstick BG ACHS - Levemir 10 mg HS - Blood sugars goals are between 150-200 5) Upper respiratory symptoms - Mucinex LA 650 PRN - Flonase PRN - Duonebs q6h PRN for dyspnea 6) Hypothyroidism - Levothyroxine 50 mcg PO daily 7) Hyperlipidemia - Fenofibrate 145 mg PO daily 8) Glaucoma - Latanoprost drops OU 9) Adrenal insufficiency - Solucortef 50 mg daily 10) RENATA - Continue with noninvasive positive airway pressure as per pulmonology's recommendations 11) Depressed mood in a patient with multiple, life-threatening comorbidities - Dr. Malin consulted, patient may benefit from cognitive behavioral therapy and medications, appreciate recommendations - Agree with Sonata and Duloxetine 12) Physical therapy in the setting of recent BKA - Physical therapy evaluation submitted 13) DVT/GI prophylaxis - Heparin 5,000 q12h - Pepcid 20 mg HS Disposition: Guarded Case was reviewed and discussed with attending physician, Dr. Potter <Gallo Potter S - Last Filed: 01/24/18 20:01> Objective - Vital Signs/Intake and Output Vital Signs (last 24 hours): Temp Pulse Resp BP Pulse Ox 97.1 F L 82 19 150/69 100 01/24/18 12:00 01/24/18 17:59 01/24/18 12:00 01/24/18 17:59 01/24/18 06:00 - Medications Medications: Current Medications Acetaminophen (Tylenol 325mg Tab) 650 mg PO Q6H PRN PRN Reason: Pain, moderate (4-7) Last Admin: 01/23/18 06:26 Dose: 650 mg Albuterol/Ipratropium (Duoneb 3 Mg/0.5 Mg (3 Ml) Ud) 3 ml IH [id number] PRN PRN Reason: Shortness of Breath Last Admin: 01/22/18 08:18 Dose: 3 ml Arformoterol Tartrate (Brovana) 15 mcg IH [id number] [facility] Last Admin: 01/24/18 07:54 Dose: 15 mcg Aspirin (Ecotrin) 81 mg PO DAILY [facility] Last Admin: 01/24/18 10:20 Dose: 81 mg Atorvastatin Calcium (Lipitor) 80 mg PO HS [facility] Bacitracin (Bacitracin) 1 ea TOP BID [facility] Last Admin: 01/24/18 18:01 Dose: 1 ea Budesonide (Pulmicort Respules) 0.5 mg IH Q12H [facility] Last Admin: 01/24/18 07:55 Dose: 0.5 mg Collagenase (Santyl) 1 gm TOP DAILY [facility] Last Admin: 01/24/18 10:21 Dose: Not Given Duloxetine HCl (Cymbalta) 40 mg PO DAILY [facility] Famotidine (Pepcid) 20 mg PO HS [facility] Last Admin: 01/23/18 23:11 Dose: 20 mg Fenofibrate (Tricor) 145 mg PO DAILY [facility] Last Admin: 01/24/18 10:20 Dose: 145 mg Fluticasone Propionate (Flonase) 1 actuation NS DAILY PRN PRN Reason: Nasal congestion Guaifenesin (Mucinex La) 600 mg PO BID PRN PRN Reason: Cough Heparin Sodium (Porcine) (Heparin) 5,000 units SC Q12 [facility]; Protocol Last Admin: 01/24/18 10:22 Dose: 5,000 units Hydrocortisone Sodium Succinate (Solu-Cortef) 50 mg IVP DAILY [facility] Meropenem/Sodium Chloride (Merrem Iv 500 Mg/Ns 50 Ml) 500 mg in 50 mls @ 100 mls/hr IVPB Q12 [facility]; Protocol Last Admin: 01/24/18 10:32 Dose: 100 mls/hr Insulin Detemir (Levemir) 10 unit SC HS [facility] Last Admin: 01/23/18 23:16 Dose: 10 unit Insulin Human Regular (Humulin R) 10 units SC AC [facility] Last Admin: 01/24/18 18:00 Dose: Not Given Insulin Human Regular (Humulin R High) 0 units SC ACHS [facility]; Protocol Last Admin: 01/24/18 18:00 Dose: 2 units Latanoprost (Xalatan Opht) 0 ml OU HS [facility] Last Admin: 01/23/18 23:13 Dose: 2.5 ml Levothyroxine Sodium (Synthroid) 50 mcg PO 0600 [facility] Last Admin: 01/24/18 05:43 Dose: 50 mcg Metoprolol Tartrate (Lopressor) 25 mg PO BID [facility] Last Admin: 01/24/18 17:59 Dose: 25 mg Oxycodone HCl (Oxycodone Immediate Release Tab) 5 mg PO Q6H PRN PRN Reason: Pain, moderate (4-7) Last Admin: 01/24/18 15:58 Dose: 5 mg Sodium Chloride ([place] Nasal Media) 0 ml NS Q2 PRN PRN Reason: nasal congestion. Ticagrelor (Brilinta) 90 mg PO BID [facility] Last Admin: 01/24/18 17:58 Dose: 90 mg Zaleplon (Sonata) 5 mg PO HS [facility] Last Admin: 01/23/18 23:12 Dose: 5 mg - Labs Labs: 01/24/18 15:45 01/24/18 15:45 PT 20.6 SECONDS (9.4-12.5) H 01/23/18 08:50 INR 1.77 01/23/18 08:50 APTT 33.8 Seconds (25.1-36.5) 01/23/18 08:50 Assessment and Plan - Assessment and Plan (Free Text) Assessment: Pt seen and examined. I have reviewed the note of the medical equipment repair technician and agree with it. I have discussed the assessment and plan with the resident. I have reviewed the patient's labs and medications. Pt with sepsis on IV Abx. He went to the OR yesterday. The pt had HD yesterday and has improvement of his edema and SOB. He has PAD of his upper extremity. The pt is being followed by ID and Surgery. He may need to go to [facility]. Pt is being followed by Dr Malin. PT. DM-2 is better controlled. CAD on ASA and Metorolol.
[2018-01-24] MEDS: Arformoterol 15 mcg/2 ml Inh Sol IH SCH ×2 (07:54→20:00)
[2018-01-24] MEDS: Budesonide 0.5 mg/2 ml Inhal Susp UD IH SCH ×3 (07:55→20:02)
[2018-01-24] MEDS: oxyCODONE 5 mg Immediate Release Tab PO PRN ×2 (08:08→15:58)
[2018-01-24] MEDS: Insulin Regular 1 UNITS/0.01 ML ML SC SCH ×3 (08:11→18:00)
[2018-01-24] MEDS: Insulin Reg-HIGH-Coverage SC SCH ×4 (08:13→22:36)
--- NOTE | 2018-01-24 09:04 | PN ---
DATE: 01/24/2018 REASON FOR THE CONSULTATION AND FOLLOWUP: Cardiac evaluation, history of coronary artery disease, history of diabetic nephropathy and neuropathy, peripheral arterial disease, status post right BKA, status post PTCA of the coronary, status post pacemaker. SUBJECTIVE: The patient denies any chest pain, shortness of breath or any palpitation, but he is very much concerned about his healthy. Yesterday, the patient underwent right BKA stump revision and debridement. PHYSICAL EXAMINATION: VITAL SIGNS: Temperature afebrile, heart rate 76, blood pressure 128/64. HEENT: PERRLA. Extraocular muscles intact. NECK: Supple. No carotid bruit. No thyromegaly. CHEST: Clear to auscultation. HEART: S1 and S2 regular. ABDOMEN: Soft. EXTREMITIES: Clubbing and cyanosis negative. Right BKA stump is in the dressing with a drainage tube. LABORATORY DATA: WBC 16.5, hemoglobin 8.8, hematocrit 26.3, platelet count 112. Chemistry shows sodium as of 01/22/2018 of 135, potassium 4, chloride 97, carbon dioxide 25, anion gap of 17, BUN 58, creatinine 4.1. Little finger of right hand tip is getting gangrene. IMPRESSION: Multiple gangrene of the fingers, history of severe peripheral arterial disease, history of coronary artery disease, history of stent, history of end-stage renal disease, history of diabetic nephropathy, neuropathy, retinopathy, sick sinus syndrome, status post permanent pacemaker, history of right below-knee amputation nonhealing ulcer of his stump, status post revision of the stump yesterday, history of gangrene of the fingers, status post amputation of the left middle finger, now the little finger is getting gangrene, rule out hypercoagulable state. RECOMMENDATIONS: We will set basic blood workup for hypercoagulable state including protein C, protein S, antiphospholipid antithrombin 3. I will call Dr. Morris for evaluation for hypercoagulable state. We will discuss with Dr. Potter. We will resume back Brilinta from tomorrow. Continue aspirin. If no further oozing of the blood, we will resume back Brilinta. I will continue aspirin. Continue metoprolol. Continue transfusion. Thank you, Dr. Potter for providing us the opportunity in taking care of the patient, Jason Berger. Jarred Erickson MD
--- NOTE | 2018-01-24 09:27 | CP.PCM.PN ---
Subjective - Date & Time of Evaluation Date of Evaluation: 01/24/18 Time of Evaluation: 09:22 - Subjective Subjective: PGY-2 GI progess note for Dr Ahn No acute events overnight. Status-post debridement of R BKA stump yesterday 01/23/18. Wound vac in place. No fevers overnight. He is AAOx3. He states that he is no longer having diarrhea. Stated his abdominal pain is controlled - receives oxycodone intermittently. Denied emesis. Objective - Vital Signs/Intake and Output Vital Signs (last 24 hours): Temp Pulse Resp BP Pulse Ox 97.9 F 76 19 128/54 L 100 01/24/18 06:00 01/24/18 06:00 01/24/18 06:00 01/24/18 06:00 01/24/18 06:00 Intake and Output: 01/24/18 01/24/18 06:59 18:59 Intake Total 120 Output Total 0 Balance 120 - Medications Medications: Current Medications Acetaminophen (Tylenol 325mg Tab) 650 mg PO Q6H PRN PRN Reason: Pain, moderate (4-7) Last Admin: 01/23/18 06:26 Dose: 650 mg Albuterol/Ipratropium (Duoneb 3 Mg/0.5 Mg (3 Ml) Ud) 3 ml IH [id number] PRN PRN Reason: Shortness of Breath Last Admin: 01/22/18 08:18 Dose: 3 ml Arformoterol Tartrate (Brovana) 15 mcg IH [id number] [facility] Last Admin: 01/24/18 07:54 Dose: 15 mcg Aspirin (Ecotrin) 81 mg PO DAILY [facility] Last Admin: 01/23/18 10:07 Dose: Not Given Atorvastatin Calcium (Lipitor) 80 mg PO [facility] Bacitracin (Bacitracin) 1 ea TOP BID [facility] Last Admin: 01/23/18 18:00 Dose: Not Given Budesonide (Pulmicort Respules) 0.5 mg IH Q12H [facility] Last Admin: 01/24/18 07:55 Dose: 0.5 mg Collagenase (Santyl) 1 gm TOP DAILY [facility] Last Admin: 01/23/18 12:00 Dose: Not Given Duloxetine HCl (Cymbalta) 20 mg PO DAILY [facility] Last Admin: 01/23/18 12:00 Dose: Not Given Famotidine (Pepcid) 20 mg PO HS [facility] Last Admin: 01/23/18 23:11 Dose: 20 mg Fenofibrate (Tricor) 145 mg PO DAILY [facility] Last Admin: 01/23/18 10:15 Dose: 145 mg Fluticasone Propionate (Flonase) 1 actuation NS DAILY PRN PRN Reason: Nasal congestion Guaifenesin (Mucinex La) 600 mg PO BID PRN PRN Reason: Cough Heparin Sodium (Porcine) (Heparin) 5,000 units SC Q12 [facility]; Protocol Last Admin: 01/23/18 23:52 Dose: Not Given Hydrocortisone Sodium Succinate (Solu-Cortef) 50 mg IVP Q12 [facility] Last Admin: 01/23/18 23:12 Dose: 50 mg Meropenem/Sodium Chloride (Merrem Iv 500 Mg/Ns 50 Ml) 500 mg in 50 mls @ 100 mls/hr IVPB Q12 [facility]; Protocol Last Admin: 01/23/18 23:11 Dose: 100 mls/hr Insulin Detemir (Levemir) 10 unit SC HS [facility] Last Admin: 01/23/18 23:16 Dose: 10 unit Insulin Human Regular (Humulin R) 10 units SC AC [facility] Last Admin: 01/24/18 08:11 Dose: Not Given Insulin Human Regular (Humulin R High) 0 units SC [facility]; Protocol Last Admin: 01/24/18 08:13 Dose: 2 units Latanoprost (Xalatan Opht) 0 ml OU HS [facility] Last Admin: 01/23/18 23:13 Dose: 2.5 ml Levothyroxine Sodium (Synthroid) 50 mcg PO 0600 [facility] Last Admin: 01/24/18 05:43 Dose: 50 mcg Metoprolol Tartrate (Lopressor) 25 mg PO BID [facility] Last Admin: 01/16/18 17:45 Dose: 25 mg Oxycodone HCl (Oxycodone Immediate Release Tab) 5 mg PO Q6H PRN PRN Reason: Pain, moderate (4-7) Last Admin: 01/24/18 08:08 Dose: 5 mg Sodium Chloride ([place] Nasal [place]) 0 ml NS Q2 PRN PRN Reason: nasal congestion. Ticagrelor (Brilinta) 90 mg PO BID [facility] Last Admin: 01/22/18 11:50 Dose: Not Given Zaleplon (Sonata) 5 mg PO HS [facility] Last Admin: 01/23/18 23:12 Dose: 5 mg - Labs Labs: 01/22/18 09:50 01/22/18 09:50 PT 20.6 SECONDS (9.4-12.5) H 01/23/18 08:50 INR 1.77 01/23/18 08:50 APTT 33.8 Seconds (25.1-36.5) 01/23/18 08:50 - Additional Findings Additional findings: - Constitutional Appears: Non-toxic, No Acute Distress, Older Than Stated Age, Chronically Ill - Head Exam Head Exam: ATRAUMATIC, NORMOCEPHALIC - Eye Exam Eye Exam: EOMI, Normal appearance, PERRL - ENT Exam ENT Exam: Mucous Membranes Moist - Respiratory Exam Respiratory Exam: Clear to Auscultation Bilateral, NORMAL BREATHING PATTERN. absent: Rales, Rhonchi, Wheezes - Cardiovascular Exam Cardiovascular Exam: REGULAR RHYTHM, +S1, +S2. absent: Gallop, Rubs, Systolic Murmur - GI/Abdominal Exam GI & Abdominal Exam: Normal Bowel Sounds, Soft. absent: Distended, Firm, Guarding, Rebound, Rigid, Tenderness - Extremities Exam Extremities exam: Positive for: full ROM Additional comments: S/p R BKA, dressing site c/d/i; wound vac in place - Neurological Exam Neurological exam: Alert, CN II-XII Intact, Oriented x3 - Psychiatric Exam Psychiatric exam: Normal Affect, Normal Mood - Skin Skin Exam: Dry, Intact, Warm Assessment and Plan - Assessment and Plan (Free Text) Plan: 52 y/o Male w/ PMHx of CHF, HTN, BPH, CVA, DM2, anemia, ESRD on HD (T, Th, Sat), Neuropathy and recent R BKA with a PSHx of R BKA, cornea transplant, cholecystectomy presenting to the emergency department complaining of severe diarrhea intermittent for the past 2 weeks, associated with diffuse abdominal pain: Diarrhea, Resolved -currently afebrile, white count increased possibly due to hydrocortisone vs infectious process -cdiff toxin and antigen negative -vre screen negative -CT abd/pelvis po contrast 01/16: * Small left pleural effusion and consolidation at left lung base. Mild ascites. No acute intra-abdominal findings. No evidence of enteritis or colitis -blood cx growing serratia marcescens and right leg wound cx growing klebsiella, serratia and VRE -received po flagyl for 2 days - discontinued by ID as diarrhea had resolved -meropenem 500mg ivp q12h per ID -Recommend caution with steroids in bacteremia, however, patient has been on long-term steroids and complete cessation will cause adrenal insufficiency. Discussed with director of food and nutrition services. Seen and discussed with Dr Ahn.
[2018-01-24] MEDS: Bacitracin 500 Units/gm Oint Foilpak UD TOP SCH ×2 (10:21→18:01)
[2018-01-24] MEDS: Collagenase 250 Units/gm Ointment(30 gm) TOP SCH (10:21)
[2018-01-24] MEDS: MEROPENEM 500 MG in NS 500 MG/50 ML BAG IVPB SCH ×2 (10:32→22:00)
--- NOTE | 2018-01-24 12:11 | CP.PCM.PCO ---
Physician Communication Note - Physician Communication Note Physician Communication Note: OK D/C
--- NOTE | 2018-01-24 13:02 | PN ---
DATE: 01/24/2018 FOLLOWUP NOTE SUBJECTIVE: In short, the patient is a 52-year-old male with reported history of adjustment disorder versus mood disorder due to general medical condition. The patient has multiple medical issues including poorly controlled diabetes, status post debridement of below-knee amputation stump yesterday, 01/23/2018. The patient has CHF, hypertension, benign prostate hyperplasia, CVA, diabetes, anemia, end-stage renal disease, on dialysis three times a day and many more. Please see notes for more detailed information. This publicity writer was involved into the patient because of depressive symptoms, which are understandable and related to all of the medical issues what the patient suffers from. This publicity writer initiated small dose of Sonata 5 mg at the nighttime as well as Cymbalta for depressive mood as well as anxiety as well as diabetic neuropathy. The patient was followed up today. The patient presented with better spirit today. The patient reported that he had a good night sleep. The patient reported that he feels a little bit better. The patient has plans to go back home as well as start cooking and enjoy his life again. The patient presented to be much better to compare with yesterday. The patient also was appreciative for medication for his pain. The patient is very pleasant and well related to this publicity writer. Vital signs reviewed. Temperature 97.9, pulse is 76, respirations 19, blood pressure 128/54, respirations 100. Medications reviewed. The patient is on Tylenol, DuoNeb, Brovana, aspirin, Lipitor, bacitracin, Pulmicort, collagenase, Cymbalta 20 mg daily. We can increase the dose of Cymbalta starts tomorrow to 40 mg daily. Pepcid, TriCor, Flonase, Mucinex, heparin, hydrocortisone, Levemir insulin, Synthroid, Xalatan, meropenem, Lopressor, oxycodone, nasal spray, Brilinta, also Sonata for insomnia. MENTAL STATUS EXAMINATION: The patient presented to be calm, cooperative. Fair eye contact. Affect was very bright today. Mood described as feeling better. Thought process was coherent and goal directed. Thought content, the patient denied visual, auditory or tactile hallucinations. Denied paranoid ideation. The patient does not present to be psychotic. The patient denied any thoughts of harming himself or others. Denied intents or plan. Insight and judgment seems to be improving. Impulses are well controlled. IMPRESSION: Rule out mood disorder due to general medical condition, rule out adjustment disorder, rule out anxiety disorder due to general medical condition. PLAN: Continue current management. Continue current medication. CBT was provided for the patient and it was very helpful for the patient. We will continue Sonata 5 mg at the nighttime for insomnia. Also, Cymbalta was started. The patient tolerated that medication well. Risks, benefits and alternatives of the medication discussed with the patient. The patient was appreciated. Tomorrow, this publicity writer will be off. Dr. Gold covers. I wish the patient best of luck, but the patient improving from the mental standpoint. Thank you very much for letting me participate in the care of your patient. Should you have any questions, give me a call back. Dea Tejada MD
--- NOTE | 2018-01-24 14:07 | CP.PCM.PN ---
Subjective - Date & Time of Evaluation Date of Evaluation: 01/24/18 Time of Evaluation: 12:00 - Subjective Subjective: Complains of pain in right BKA site Objective - Vital Signs/Intake and Output Vital Signs (last 24 hours): Temp Pulse Resp BP Pulse Ox 97.9 F 76 19 128/54 L 100 01/24/18 06:00 01/24/18 06:00 01/24/18 06:00 01/24/18 06:00 01/24/18 06:00 Intake and Output: 01/24/18 01/24/18 06:59 18:59 Intake Total 120 Output Total 0 Balance 120 - Medications Medications: Current Medications Acetaminophen (Tylenol 325mg Tab) 650 mg PO Q6H PRN PRN Reason: Pain, moderate (4-7) Last Admin: 01/23/18 06:26 Dose: 650 mg Albuterol/Ipratropium (Duoneb 3 Mg/0.5 Mg (3 Ml) Ud) 3 ml IH [id number] PRN PRN Reason: Shortness of Breath Last Admin: 01/22/18 08:18 Dose: 3 ml Arformoterol Tartrate (Brovana) 15 mcg IH [id number] [facility] Last Admin: 01/24/18 07:54 Dose: 15 mcg Aspirin (Ecotrin) 81 mg PO DAILY [facility] Last Admin: 01/24/18 10:20 Dose: 81 mg Atorvastatin Calcium (Lipitor) 80 mg PO HS [facility] Bacitracin (Bacitracin) 1 ea TOP BID [facility] Last Admin: 01/24/18 10:21 Dose: 1 ea Budesonide (Pulmicort Respules) 0.5 mg IH Q12H [facility] Last Admin: 01/24/18 07:55 Dose: 0.5 mg Collagenase (Santyl) 1 gm TOP DAILY [facility] Last Admin: 01/24/18 10:21 Dose: Not Given Duloxetine HCl (Cymbalta) 40 mg PO DAILY [facility] Famotidine (Pepcid) 20 mg PO HS [facility] Last Admin: 01/23/18 23:11 Dose: 20 mg Fenofibrate (Tricor) 145 mg PO DAILY [facility] Last Admin: 01/24/18 10:20 Dose: 145 mg Fluticasone Propionate (Flonase) 1 actuation NS DAILY PRN PRN Reason: Nasal congestion Guaifenesin (Mucinex La) 600 mg PO BID PRN PRN Reason: Cough Heparin Sodium (Porcine) (Heparin) 5,000 units SC Q12 [facility]; Protocol Last Admin: 01/24/18 10:22 Dose: 5,000 units Hydrocortisone Sodium Succinate (Solu-Cortef) 50 mg IVP DAILY [facility] Meropenem/Sodium Chloride (Merrem Iv 500 Mg/Ns 50 Ml) 500 mg in 50 mls @ 100 mls/hr IVPB Q12 [facility]; Protocol Last Admin: 01/24/18 10:32 Dose: 100 mls/hr Insulin Detemir (Levemir) 10 unit SC HS [facility] Last Admin: 01/23/18 23:16 Dose: 10 unit Insulin Human Regular (Humulin R) 10 units SC AC [facility] Last Admin: 01/24/18 13:14 Dose: Not Given Insulin Human Regular (Humulin R High) 0 units SC ACHS [facility]; Protocol Last Admin: 01/24/18 13:16 Dose: 7 units Latanoprost (Xalatan Opht) 0 ml OU HS [facility] Last Admin: 01/23/18 23:13 Dose: 2.5 ml Levothyroxine Sodium (Synthroid) 50 mcg PO 0600 [facility] Last Admin: 01/24/18 05:43 Dose: 50 mcg Metoprolol Tartrate (Lopressor) 25 mg PO BID [facility] Last Admin: 01/24/18 10:50 Dose: Not Given Oxycodone HCl (Oxycodone Immediate Release Tab) 5 mg PO Q6H PRN PRN Reason: Pain, moderate (4-7) Last Admin: 01/24/18 08:08 Dose: 5 mg Sodium Chloride ([place] Nasal [place]) 0 ml NS Q2 PRN PRN Reason: nasal congestion. Ticagrelor (Brilinta) 90 mg PO BID [facility] Last Admin: 01/24/18 10:20 Dose: 90 mg Zaleplon (Sonata) 5 mg PO [facility] Last Admin: 01/23/18 23:12 Dose: 5 mg - Labs Labs: 01/22/18 09:50 01/22/18 09:50 PT 20.6 SECONDS (9.4-12.5) H 01/23/18 08:50 INR 1.77 01/23/18 08:50 APTT 33.8 Seconds (25.1-36.5) 01/23/18 08:50 - Constitutional Appears: Chronically Ill - Eye Exam Eye Exam: Normal appearance, PERRL - ENT Exam ENT Exam: Mucous Membranes Moist - Respiratory Exam Respiratory Exam: Decreased Breath Sounds, NORMAL BREATHING PATTERN - Cardiovascular Exam Cardiovascular Exam: REGULAR RHYTHM, +S1, +S2 - GI/Abdominal Exam GI & Abdominal Exam: Soft, Normal Bowel Sounds - Extremities Exam Additional comments: left foot decreased pulses , left hand bandage intact, s/p third finger amputation, right BKA bandage intact - Neurological Exam Neurological Exam: Alert, Oriented x3 - Skin Skin Exam: Dry Assessment and Plan - Assessment and Plan (Free Text) Assessment: 52 yeara old male with history of ESRD on HD, DM, HTN , PVD,s/p R BKA who is admitted with bacteremia,infected R BKA stump s/p revision of yesterday wound vac applied,diarrhea which has since resolved, mood disorder. The patient is willing to complete advanced directive today. Benefits and burden s of CPR/intubation and PEG feeding explained. He understands that he is has multiple comorbidities and that his health will continue to decline. The patient states he wants full resuscitation efforts. He named his sister, Grant Miramontes (Farial) and his mother Ervin Miramontes as his health care surrogates. Tie spent with patient in goals of care and advanced care planning 20 minutes Plan: Advance Care Planning Sepsis: Continue Merrem. ESRD: Continue HD S/p revision of right BKA stump, wound vac. Surgery following Mood disorder: Pysch following, continue Cymbalta daily, Sonata for sleep DM: Humalog 10 units bid, Fingerstick ACHS Humulin ISS coverage CAD: Brillanta, ASA, Metorolo, Norvasc
[2018-01-24 15:44] LABS: GRAN # 13.31 (1.4-6.5); GRAN % 92.4 % (50.0-68.0); HEMOGLOBIN 8.5 g/dL (14.0-18.0); LYMPH # 0.6 (1.2-3.4); LYMPH % 4.4 % (22.0-35.0); MEAN CELL VOLUME 93.5 fl (80.0-105.0); MEAN CORPUSCULAR HEMOGLOBIN 30.8 pg (25.0-35.0); MEAN CORPUSCULAR HGB CONC 32.9 g/dl (31.0-37.0); MEAN PLATELET VOLUME 12.2 fl (7.0-11.0); MONO # 0.5 (0.1-0.6); MONO % 3.2 % (1.0-6.0); PLATELET COUNT 106 10^3/uL (120.0-450.0); RBC 2.76 10^6/uL (3.5-6.1); RED CELL DISTRIBUTION WIDTH 18.4 % (11.5-14.5); WHITE BLOOD COUNT 14.4 10^3/uL (4.5-11.0)
[2018-01-24 16:10] LABS: CALCIUM 7.4 mg/dL (8.4-10.5)
[2018-01-24 17:08] LABS: ATYPICAL LYMPHOCYTE 1 % (0.0-0.0); LYMPHOCYTE 4 % (22.0-35.0); MONOCYTE 3 % (1.0-6.0); NEUTROPHIL 92 % (50.0-70.0); PLATELET ESTIMATE LOW (NORMAL)
[2018-01-24] MEDS: Insulin Detemir 100 units/ml Vial (Levemir) SC SCH (21:59)
[2018-01-24] MEDS: Latanoprost 2.5 ml Opht Soln OU SCH (21:59)
--- NOTE | 2018-01-24 22:34 | PN ---
DATE: 01/24/2018 PULMONARY PROGRESS NOTE REFERRING PHYSICIAN: Gallo Potter MD. SUBJECTIVE: He just finished up his dialysis. Night was unremarkable. More awake and alert, arousable, but goes back to sleep. No cough. No sputum production. No chest pain. No nausea, no vomiting, no diarrhea. Not much leg swelling. Has a right BKA, has a dressing on the wound. OBJECTIVE: GENERAL: In no acute distress. VITAL SIGNS: Temperature is 98, heart rate is 82, respiratory rate is 19, blood pressure 162/74, pulse ox 100% on 3 L nasal cannula. HEENT: Moist mucous membrane. Crowded airway. Mallampati score is 4. NECK: Supple. No JVD. LUNGS: Have a fair airflow with rhonchi. HEART: S1 and S2. ABDOMEN: Soft, nontender, no organomegaly. EXTREMITIES: There is no edema. Right has a BKA. NEUROLOGICAL: Sleepy, arousable. MEDICATIONS: He is on Brilinta 90 mg twice a day, Brovana inhaled twice a day, Cymbalta 40 mg daily, DuoNeb every 6 hours p.r.n., Ecotrin 81 mg daily, Flonase 1 spray each nostril daily, heparin 5000 units subcu every 12 hours, insulin coverage, Levemir 10 units at bedtime, Lipitor 80 mg daily, metoprolol tartrate 25 mg twice a day, meropenem 500 mg every 12 hours, Mucinex 600 mg twice a day, oxycodone immediate release 5 mg every 6 hours p.r.n., Pepcid 20 mg at bedtime, Pulmicort inhaled twice a day, Santyl at affected area, Solu-Cortef 50 mg daily, Sonata 5 mg at bedtime, Synthroid 50 mcg daily, Tricor 145 mg daily, Tylenol p.r.n. LABORATORY DATA: Shows hemoglobin 8.5, hematocrit 25.8, WBC 14.4, platelet count is 106. Sodium 136, potassium 3.8, chloride 98, bicarbonate 27, BUN 58, creatinine 4.4, glucose 237, calcium is 7.4. TSH is 6.56. Cortisol level is still pending. Repeat blood culture: There is no growth. IMPRESSION AND PLAN: Resolving septic shock, renal failure, dialysis dependent, chronic obstructive lung disease, coronary artery disease, cardiac arrhythmia requiring pacemaker, hypoventilation syndrome, sleep apnea syndrome, cardiac diastolic dysfunction, gastroparesis, peripheral vascular disease, status post right below-knee amputation, wound care is being done by Surgery, may have Raynaud's phenomenon. Pulmonary point of view, doing okay. Encourage BiPAP use. Keep head at 45 degrees. Bronchodilator. Adrenal insufficiency. Still on steroids. TSH is mildly elevated, but okay. Cortisol level is pending. Careful with sedation. Fall precaution precautions. Pressure ulcer precaution. Thank you and we will follow with you. Jarred Escalera MD
--- NOTE | 2018-01-24 22:45 | CP.PCM.CON ---
History of Present Illness - History of Present Illness History of Present Illness: Covering Dr. Morris 52 year old male with a history of HTN, DM, CAD s/p stent, PAD s/p Right BKA, CVA, COPD, RENATA, ESRD on HD, steal syndrome requiring vascular surgery, s/p recent left middle finger amputation, with anemia and coagulopathy and concern for hypercoagulable state. The patient is known to me from an admission at [facility] last month. He had a coagulopathy which was worked up with mixing study. 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 Past medical history: HTN, DM, CAD s/p stent, PAD s/p Right BKA, CVA, COPD, RENATA, ESRD on HD, steal syndrome, left middle finger amputation. Past surgical history: AVF, right bka, left middle finger amputation. Family history: Denies hematologic and oncologic problems Social history: Denies tobacco, alcohol, and illicit drug use. Allergies: Several, see list Review of systems: All remaining review of systems including HEENT, cardiovascular, respiratory, gastrointestinal, genitourinary, musculoskeletal, dermatologic, neurologic, and psychiatric are negative unless mentioned in the HPI. Past Patient History - Infectious Disease Hx of Infectious Diseases: None - Tetanus Immunizations Tetanus Immunization: Up to Date - Past Medical History & Family History Past Medical History?: Yes - Past Social History Smoking Status: Never Smoked - CARDIAC Hx Congestive Heart Failure: Yes Hx Hypertension: Yes - PULMONARY Hx Chronic Obstructive Pulmonary Disease (COPD): Yes - NEUROLOGICAL HX Cerebrovascular Accident: Yes - HEENT Hx HEENT Problems: Yes Hx Blind: No Hx Cataracts: Yes Hx Deafness: No Hx Difficulty Chewing: No - RENAL Hx Renal Failure: Yes (on HD) - ENDOCRINE/METABOLIC Hx Diabetes Mellitus Type 2: Yes - HEMATOLOGICAL/ONCOLOGICAL Hx AIDS: No Hx Anemia: Yes Hx Blood Transfusions: Yes Hx Blood Transfusion Reaction: No - INTEGUMENTARY Hx Dermatological Problems: No - MUSCULOSKELETAL/RHEUMATOLOGICAL Hx Arthritis: Yes - GASTROINTESTINAL Hx Gastrointestinal Disorders: Yes Hx Colostomy: No Hx Liver Failure: Yes Hx Pancreatitis: Yes - GENITOURINARY/GYNECOLOGICAL Hx Genitourinary Disorders: Yes Hx Hematuria: Yes - PSYCHIATRIC Hx Psychophysiologic Disorder: Yes Hx Anxiety: Yes Hx Substance Use: No - SURGICAL HISTORY Hx Amputation: Yes Hx Cardiac Catheterization: Yes Hx Cholecystectomy: Yes Hx Coronary Stent: Yes Hx Musculoskeletal Surgery: Yes - ANESTHESIA Hx Anesthesia: Yes Hx Anesthesia Reactions: No Hx Malignant Hyperthermia: No Meds Allergies/Adverse Reactions: Allergies Allergy/AdvReac Type Severity Reaction Status Date / Time insulin aspart [From Novolog] Allergy Intermediate RASH Verified 01/15/18 23:49 moxifloxacin Allergy Intermediate RASH Verified 01/15/18 23:49 Penicillins Allergy Intermediate RASH Verified 01/15/18 23:49 - Medications Medications: Current Medications Acetaminophen (Tylenol 325mg Tab) 650 mg PO Q6H PRN PRN Reason: Pain, moderate (4-7) Last Admin: 01/23/18 06:26 Dose: 650 mg Albuterol/Ipratropium (Duoneb 3 Mg/0.5 Mg (3 Ml) Ud) 3 ml IH [id number] PRN PRN Reason: Shortness of Breath Last Admin: 01/22/18 08:18 Dose: 3 ml Arformoterol Tartrate (Brovana) 15 mcg IH [id number] [facility] Last Admin: 01/24/18 20:00 Dose: 15 mcg Aspirin (Ecotrin) 81 mg PO DAILY [facility] Last Admin: 01/24/18 10:20 Dose: 81 mg Atorvastatin Calcium (Lipitor) 80 mg PO HS [facility] Last Admin: 01/24/18 22:01 Dose: 80 mg Bacitracin (Bacitracin) 1 ea TOP BID [facility] Last Admin: 01/24/18 18:01 Dose: 1 ea Budesonide (Pulmicort Respules) 0.5 mg IH Q12H [facility] Last Admin: 01/24/18 20:02 Dose: Not Given Collagenase (Santyl) 1 gm TOP DAILY [facility] Last Admin: 01/24/18 10:21 Dose: Not Given Duloxetine HCl (Cymbalta) 40 mg PO DAILY [facility] Famotidine (Pepcid) 20 mg PO HS [facility] Last Admin: 01/24/18 21:59 Dose: 20 mg Fenofibrate (Tricor) 145 mg PO DAILY [facility] Last Admin: 01/24/18 10:20 Dose: 145 mg Fluticasone Propionate (Flonase) 1 actuation NS DAILY PRN PRN Reason: Nasal congestion Guaifenesin (Mucinex La) 600 mg PO BID PRN PRN Reason: Cough Heparin Sodium (Porcine) (Heparin) 5,000 units SC Q12 [facility]; Protocol Last Admin: 01/24/18 21:51 Dose: 5,000 units Hydrocortisone Sodium Succinate (Solu-Cortef) 50 mg IVP DAILY [facility] Meropenem/Sodium Chloride (Merrem Iv 500 Mg/Ns 50 Ml) 500 mg in 50 mls @ 100 mls/hr IVPB Q12 [facility]; Protocol Last Admin: 01/24/18 22:00 Dose: 100 mls/hr Insulin Detemir (Levemir) 10 unit SC HS [facility] Last Admin: 01/24/18 21:59 Dose: 10 unit Insulin Human Regular (Humulin R) 10 units SC AC [facility] Last Admin: 01/24/18 18:00 Dose: Not Given Insulin Human Regular (Humulin R High) 0 units SC ACHS [facility]; Protocol Last Admin: 01/24/18 18:00 Dose: 2 units Latanoprost (Xalatan Opht) 0 ml OU [facility] Last Admin: 01/24/18 21:59 Dose: 2.5 ml Levothyroxine Sodium (Synthroid) 50 mcg PO 0600 [facility] Last Admin: 01/24/18 05:43 Dose: 50 mcg Metoprolol Tartrate (Lopressor) 25 mg PO BID [facility] Last Admin: 01/24/18 17:59 Dose: 25 mg Oxycodone HCl (Oxycodone Immediate Release Tab) 5 mg PO Q6H PRN PRN Reason: Pain, moderate (4-7) Last Admin: 01/24/18 15:58 Dose: 5 mg Sodium Chloride ([place] Nasal [place]) 0 ml NS Q2 PRN PRN Reason: nasal congestion. Ticagrelor (Brilinta) 90 mg PO BID [facility] Last Admin: 01/24/18 17:58 Dose: 90 mg Zaleplon (Sonata) 5 mg PO [facility] Last Admin: 01/24/18 21:59 Dose: 5 mg Physical Exam - Head Exam Head Exam: ATRAUMATIC - Eye Exam Eye Exam: Normal appearance - ENT Exam ENT Exam: Mucous Membranes Dry - Respiratory Exam Respiratory Exam: NORMAL BREATHING PATTERN - Cardiovascular Exam Cardiovascular Exam: +S1, +S2 - GI/Abdominal Exam GI & Abdominal Exam: Normal Bowel Sounds - Extremities Exam Additional comments: right BKA, left 5th finger darkening - Neurological Exam Neurological exam: Oriented x3 - Psychiatric Exam Psychiatric exam: Normal Affect, Normal Mood - Skin Skin Exam: Warm Results - Vital Signs Recent Vital Signs: Last Vital Signs Temp 97.1 F L 01/24/18 12:00 Pulse 82 01/24/18 17:59 Resp 19 01/24/18 12:00 BP 150/69 01/24/18 17:59 Pulse Ox 100 01/24/18 06:00 - Labs Result Diagrams: 01/24/18 15:45 01/24/18 15:45 Labs: Laboratory Results - last 24 hr 01/24/18 01/24/18 01/24/18 07:32 11:41 15:45 WBC RBC Hgb Hct MCV MCH MCHC RDW Plt Count MPV Gran % Lymph % (Auto) [place] % (Auto) Eos % (Auto) Baso % (Auto) Gran # Lymph # (Auto) [place] # (Auto) Eos # (Auto) Baso # (Auto) Neutrophils % (Manual) Lymphocytes % (Manual) Atypical Lymphs % Monocytes % (Manual) Platelet Evaluation Sodium Potassium Chloride Carbon Dioxide Anion Gap BUN Creatinine Est GFR ( Amer) Est GFR (Non-Af Amer) POC Glucose (mg/dL) 189 H 232 H Random Glucose Calcium TSH 3rd Generation Cortisol AM Sample 114.0 H 01/24/18 01/24/18 01/24/18 15:45 15:45 15:45 WBC 14.4 H RBC 2.76 L Hgb 8.5 L Hct 25.8 L MCV 93.5 MCH 30.8 MCHC 32.9 RDW 18.4 H Plt Count 106 L MPV 12.2 H Gran % 92.4 H Lymph % (Auto) 4.4 L [place] % (Auto) 3.2 Eos % (Auto) 0.0 L Baso % (Auto) 0.0 Gran # 13.31 H Lymph # (Auto) 0.6 L [place] # (Auto) 0.5 Eos # (Auto) 0.0 Baso # (Auto) 0.00 Neutrophils % (Manual) 92 H Lymphocytes % (Manual) 4 L Atypical Lymphs % 1 H Monocytes % (Manual) 3 Platelet Evaluation Low Sodium 136 Potassium 3.8 Chloride 98 Carbon Dioxide 27 Anion Gap 15 BUN 58 H Creatinine 4.4 H Est GFR ( Amer) 17 Est GFR (Non-Af Amer) 14 POC Glucose (mg/dL) Random Glucose 237 H Calcium 7.4 L TSH 3rd Generation 6.56 H Cortisol AM Sample 01/24/18 01/24/18 17:49 21:10 WBC RBC Hgb Hct MCV MCH MCHC RDW Plt Count MPV Gran % Lymph % (Auto) [place] % (Auto) Eos % (Auto) Baso % (Auto) Gran # Lymph # (Auto) [place] # (Auto) Eos # (Auto) Baso # (Auto) Neutrophils % (Manual) Lymphocytes % (Manual) Atypical Lymphs % Monocytes % (Manual) Platelet Evaluation Sodium Potassium Chloride Carbon Dioxide Anion Gap BUN Creatinine Est GFR ( Amer) Est GFR (Non-Af Amer) POC Glucose (mg/dL) 159 H 191 H Random Glucose Calcium TSH 3rd Generation Cortisol AM Sample Assessment & Plan (1) Hypercoagulable state Assessment and Plan: rule out inherited thrombophilia w/u sent on dual antiplatelet therapy Status: Acute (2) Thrombocytopenia Assessment and Plan: mild improved from prior HIV and hepatitis B/C negative antiphospholipid Ab panel negative Status: Acute (3) Anemia Assessment and Plan: will check retic count, b12, folate, ferritin anemia of CKD anemia of chronic disease GI blood loss transfusion support PRN Status: Acute (4) Leukocytosis Assessment and Plan: improving with antibiotics Status: Acute (5) Coagulopathy Assessment and Plan: repeat mixing study prior study corrected suggesting factor deficiency/nutritional coagulopathy Thank you for this interesting consult. Status: Acute
[2018-01-25] MEDS: oxyCODONE 5 mg Immediate Release Tab PO PRN ×3 (00:42→12:43)
[2018-01-25] MEDS: Levothyroxine 25 MCG TAB PO SCH (06:09)
--- NOTE | 2018-01-25 06:52 | CP.PCM.PN ---
<Lolis Rivas - Last Filed: 01/25/18 08:47> Subjective - Date & Time of Evaluation Date of Evaluation: 01/25/18 Time of Evaluation: 07:00 - Subjective Subjective: Infectious Disease Progress Note for Simon Zepeda PGY3 Patient seen and examined at bedside. There were no acute overnight events as per nursing staff. Patient is comfortable and reports his pain has been improving. He remains afebrile. Objective - Vital Signs/Intake and Output Vital Signs (last 24 hours): Temp Pulse Resp BP Pulse Ox 97.1 F L 82 19 150/69 100 01/24/18 12:00 01/24/18 17:59 01/24/18 12:00 01/24/18 17:59 01/24/18 06:00 Intake and Output: 01/24/18 01/25/18 18:59 06:59 Intake Total 640 Balance 640 - Medications Medications: Current Medications Acetaminophen (Tylenol 325mg Tab) 650 mg PO Q6H PRN PRN Reason: Pain, moderate (4-7) Last Admin: 01/23/18 06:26 Dose: 650 mg Albuterol/Ipratropium (Duoneb 3 Mg/0.5 Mg (3 Ml) Ud) 3 ml IH [id number] PRN PRN Reason: Shortness of Breath Last Admin: 01/22/18 08:18 Dose: 3 ml Arformoterol Tartrate (Brovana) 15 mcg IH [id number] [facility] Last Admin: 01/24/18 20:00 Dose: 15 mcg Aspirin (Ecotrin) 81 mg PO DAILY [facility] Last Admin: 01/24/18 10:20 Dose: 81 mg Atorvastatin Calcium (Lipitor) 80 mg PO HS [facility] Last Admin: 01/24/18 22:01 Dose: 80 mg Bacitracin (Bacitracin) 1 ea TOP BID [facility] Last Admin: 01/24/18 18:01 Dose: 1 ea Budesonide (Pulmicort Respules) 0.5 mg IH Q12H [facility] Last Admin: 01/24/18 20:02 Dose: Not Given Collagenase (Santyl) 1 gm TOP DAILY [facility] Last Admin: 01/24/18 10:21 Dose: Not Given Duloxetine HCl (Cymbalta) 40 mg PO DAILY [facility] Famotidine (Pepcid) 20 mg PO [facility] Last Admin: 01/24/18 21:59 Dose: 20 mg Fenofibrate (Tricor) 145 mg PO DAILY [facility] Last Admin: 01/24/18 10:20 Dose: 145 mg Fluticasone Propionate (Flonase) 1 actuation NS DAILY PRN PRN Reason: Nasal congestion Guaifenesin (Mucinex La) 600 mg PO BID PRN PRN Reason: Cough Heparin Sodium (Porcine) (Heparin) 5,000 units SC Q12 [facility]; Protocol Last Admin: 01/24/18 21:51 Dose: 5,000 units Hydrocortisone Sodium Succinate (Solu-Cortef) 50 mg IVP DAILY [facility] Meropenem/Sodium Chloride (Merrem Iv 500 Mg/Ns 50 Ml) 500 mg in 50 mls @ 100 mls/hr IVPB Q12 [facility]; Protocol Last Admin: 01/24/18 22:00 Dose: 100 mls/hr Insulin Detemir (Levemir) 10 unit SC HS [facility] Last Admin: 01/24/18 21:59 Dose: 10 unit Insulin Human Regular (Humulin R) 10 units SC AC [facility] Last Admin: 01/24/18 18:00 Dose: Not Given Insulin Human Regular (Humulin R High) 0 units SC ACHS [facility]; Protocol Last Admin: 01/24/18 22:36 Dose: Not Given Latanoprost (Xalatan Opht) 0 ml OU [facility] Last Admin: 01/24/18 21:59 Dose: 2.5 ml Levothyroxine Sodium (Synthroid) 50 mcg PO 0600 [facility] Last Admin: 01/25/18 06:09 Dose: 50 mcg Metoprolol Tartrate (Lopressor) 25 mg PO BID [facility] Last Admin: 01/24/18 17:59 Dose: 25 mg Oxycodone HCl (Oxycodone Immediate Release Tab) 5 mg PO Q6H PRN PRN Reason: Pain, moderate (4-7) Last Admin: 01/25/18 00:42 Dose: 5 mg Sodium Chloride ([place] Nasal [place]) 0 ml NS Q2 PRN PRN Reason: nasal congestion. Ticagrelor (Brilinta) 90 mg PO BID [facility] Last Admin: 01/24/18 17:58 Dose: 90 mg Zaleplon (Sonata) 5 mg PO [facility] Last Admin: 01/24/18 21:59 Dose: 5 mg - Labs Labs: 01/24/18 15:45 01/24/18 15:45 PT 20.6 SECONDS (9.4-12.5) H 01/23/18 08:50 INR 1.77 01/23/18 08:50 APTT 33.8 Seconds (25.1-36.5) 01/23/18 08:50 - Constitutional Appears: No Acute Distress, Chronically Ill - Head Exam Head Exam: ATRAUMATIC, NORMAL INSPECTION, NORMOCEPHALIC - Eye Exam Eye Exam: Normal appearance, PERRL Pupil Exam: NORMAL ACCOMODATION, PERRL - ENT Exam ENT Exam: Mucous Membranes Moist - Neck Exam Neck Exam: Full ROM - Respiratory Exam Respiratory Exam: Clear to Ausculation Bilateral, NORMAL BREATHING PATTERN. absent: Rales, Rhonchi, Wheezes - Cardiovascular Exam Cardiovascular Exam: REGULAR RHYTHM, +S1, +S2. absent: Gallop, Rubs, Murmur - GI/Abdominal Exam GI & Abdominal Exam: Soft, Normal Bowel Sounds. absent: Rigid, Tenderness, Mass, Rebound - Extremities Exam Extremities Exam: absent: Normal Inspection Additional comments: R leg stump wound vac in place- sanginous drainage R pinky finger necrotic - Neurological Exam Neurological Exam: Alert, Awake, CN II-XII Intact, Oriented x3 - Skin Skin Exam: Dry, Warm Assessment and Plan - Assessment and Plan (Free Text) Assessment: 1. Sepsis - secondary to R stump cellulitis s/p debridement POD #2 - Positive for Serratia Bacteremia 2. R TMA stump gangrene 3. Hx of Guerline glabrata fungemia 4. Hx of bilateral HCAP 5. Hx of sepsis secondary to C.diff 6. ESRD on HD 7. DM 8. CAD s/p PCI 9. Diabetic retinopathy 10. Obesity 11. Hx of pancreatitis Plan: Continue Merrem day #8 out of 14. Continue wound care. Will discuss case with surgery. Will continue to monitor patient clinically. Case seen, discussed and reviewed with Dr. Neil Rivas PGY3 <Pj Quinteros - Last Filed: 01/25/18 15:01> Objective - Vital Signs/Intake and Output Vital Signs (last 24 hours): Temp Pulse Resp BP Pulse Ox 97.1 F L 82 18 154/56 H 100 01/24/18 12:00 01/24/18 17:59 01/25/18 12:00 01/25/18 12:00 01/24/18 06:00 Intake and Output: 01/25/18 01/25/18 06:59 18:59 Intake Total 1280 Output Total 0 Balance 1280 - Medications Medications: Current Medications Acetaminophen (Tylenol 325mg Tab) 650 mg PO Q6H PRN PRN Reason: Pain, moderate (4-7) Last Admin: 01/25/18 11:27 Dose: 650 mg Albuterol/Ipratropium (Duoneb 3 Mg/0.5 Mg (3 Ml) Ud) 3 ml IH [id number] PRN PRN Reason: Shortness of Breath Last Admin: 01/22/18 08:18 Dose: 3 ml Arformoterol Tartrate (Brovana) 15 mcg IH [id number] [facility] Last Admin: 01/25/18 08:18 Dose: 15 mcg Aspirin (Ecotrin) 81 mg PO DAILY [facility] Last Admin: 01/25/18 11:28 Dose: 81 mg Atorvastatin Calcium (Lipitor) 80 mg PO HS [facility] Last Admin: 01/24/18 22:01 Dose: 80 mg Bacitracin (Bacitracin) 1 ea TOP BID [facility] Last Admin: 01/25/18 11:33 Dose: 1 ea Budesonide (Pulmicort Respules) 0.5 mg IH Q12H [facility] Last Admin: 01/25/18 08:18 Dose: 0.5 mg Collagenase (Santyl) 1 gm TOP DAILY [facility] Last Admin: 01/25/18 11:29 Dose: 1 applic Duloxetine HCl (Cymbalta) 40 mg PO DAILY [facility] Last Admin: 01/25/18 11:28 Dose: 40 mg Famotidine (Pepcid) 20 mg PO HS [facility] Last Admin: 01/24/18 21:59 Dose: 20 mg Fenofibrate (Tricor) 145 mg PO DAILY [facility] Last Admin: 01/25/18 11:28 Dose: 145 mg Fluticasone Propionate (Flonase) 1 actuation NS DAILY PRN PRN Reason: Nasal congestion Guaifenesin (Mucinex La) 600 mg PO BID PRN PRN Reason: Cough Heparin Sodium (Porcine) (Heparin) 5,000 units SC Q12 [facility]; Protocol Last Admin: 01/25/18 11:13 Dose: Not Given Meropenem/Sodium Chloride (Merrem Iv 500 Mg/Ns 50 Ml) 500 mg in 50 mls @ 100 mls/hr IVPB Q12 [facility]; Protocol Last Admin: 01/25/18 11:39 Dose: 100 mls/hr Insulin Detemir (Levemir) 10 unit SC HS [facility] Last Admin: 01/24/18 21:59 Dose: 10 unit Insulin Human Regular (Humulin R) 10 units SC AC [facility] Last Admin: 01/25/18 11:36 Dose: 10 units Insulin Human Regular (Humulin R High) 0 units SC ACHS [facility]; Protocol Last Admin: 01/25/18 11:37 Dose: 4 units Latanoprost (Xalatan Opht) 0 ml OU HS [facility] Last Admin: 01/24/18 21:59 Dose: 2.5 ml Levothyroxine Sodium (Synthroid) 50 mcg PO 0600 [facility] Last Admin: 01/25/18 06:09 Dose: 50 mcg Metoprolol Tartrate (Lopressor) 25 mg PO BID [facility] Last Admin: 01/25/18 11:29 Dose: Not Given Oxycodone HCl (Oxycodone Immediate Release Tab) 5 mg PO Q6H PRN PRN Reason: Pain, moderate (4-7) Last Admin: 01/25/18 12:43 Dose: 5 mg Sodium Chloride ([place] Nasal [place]) 0 ml NS Q2 PRN PRN Reason: nasal congestion. Ticagrelor (Brilinta) 90 mg PO BID [facility] Last Admin: 01/25/18 11:28 Dose: 90 mg Zaleplon (Sonata) 5 mg PO [facility] Last Admin: 01/24/18 21:59 Dose: 5 mg - Labs Labs: 01/25/18 09:00 01/25/18 09:00 PT 20.6 SECONDS (9.4-12.5) H 01/23/18 08:50 INR 1.77 01/23/18 08:50 APTT 33.8 Seconds (25.1-36.5) 01/23/18 08:50 Assessment and Plan - Assessment and Plan (Free Text) Plan: Infectious Diseases Attending Physician Attestation Patient seen and examined, discussed with medical policy specialist. I have reviewed the patient's history of present illness, past medical, family and social histories, personal history, physical exam, lab findings and imaging studies. I agree with the above findings, assessment and plan. In addition, continue Merrem for this patient with Serratia bacteremia from leg stump infection - should complete 14 days. Follow up further plans of surgery. Will continue to follow clinically.
--- NOTE | 2018-01-25 07:15 | CP.PCM.PN ---
Subjective - Date & Time of Evaluation Date of Evaluation: 01/25/18 Time of Evaluation: 06:30 - Subjective Subjective: Alert,awake,denies shortness of breath, Reason for consultation and follow up:Cardiac evaluation of chest pain,follow up of coronary artery disease, History of PPM, admitted for diarrhea, infected right BKA stump Seen and examined by me and Dr. Erickson Objective - Vital Signs/Intake and Output Vital Signs (last 24 hours): Temp Pulse Resp BP Pulse Ox 97.1 F L 82 19 150/69 100 01/24/18 12:00 01/24/18 17:59 01/24/18 12:00 01/24/18 17:59 01/24/18 06:00 Intake and Output: 01/25/18 01/25/18 06:59 18:59 Intake Total 1280 Output Total 0 Balance 1280 - Medications Medications: Current Medications Acetaminophen (Tylenol 325mg Tab) 650 mg PO Q6H PRN PRN Reason: Pain, moderate (4-7) Last Admin: 01/23/18 06:26 Dose: 650 mg Albuterol/Ipratropium (Duoneb 3 Mg/0.5 Mg (3 Ml) Ud) 3 ml IH [id number] PRN PRN Reason: Shortness of Breath Last Admin: 01/22/18 08:18 Dose: 3 ml Arformoterol Tartrate (Brovana) 15 mcg IH [id number] [facility] Last Admin: 01/24/18 20:00 Dose: 15 mcg Aspirin (Ecotrin) 81 mg PO DAILY [facility] Last Admin: 01/24/18 10:20 Dose: 81 mg Atorvastatin Calcium (Lipitor) 80 mg PO HS [facility] Last Admin: 01/24/18 22:01 Dose: 80 mg Bacitracin (Bacitracin) 1 ea TOP BID [facility] Last Admin: 01/24/18 18:01 Dose: 1 ea Budesonide (Pulmicort Respules) 0.5 mg IH Q12H [facility] Last Admin: 01/24/18 20:02 Dose: Not Given Collagenase (Santyl) 1 gm TOP DAILY [facility] Last Admin: 01/24/18 10:21 Dose: Not Given Duloxetine HCl (Cymbalta) 40 mg PO DAILY [facility] Famotidine (Pepcid) 20 mg PO HS [facility] Last Admin: 01/24/18 21:59 Dose: 20 mg Fenofibrate (Tricor) 145 mg PO DAILY [facility] Last Admin: 01/24/18 10:20 Dose: 145 mg Fluticasone Propionate (Flonase) 1 actuation NS DAILY PRN PRN Reason: Nasal congestion Guaifenesin (Mucinex La) 600 mg PO BID PRN PRN Reason: Cough Heparin Sodium (Porcine) (Heparin) 5,000 units SC Q12 [facility]; Protocol Last Admin: 01/24/18 21:51 Dose: 5,000 units Hydrocortisone Sodium Succinate (Solu-Cortef) 50 mg IVP DAILY [facility] Meropenem/Sodium Chloride (Merrem Iv 500 Mg/Ns 50 Ml) 500 mg in 50 mls @ 100 mls/hr IVPB Q12 [facility]; Protocol Last Admin: 01/24/18 22:00 Dose: 100 mls/hr Insulin Detemir (Levemir) 10 unit SC HS [facility] Last Admin: 01/24/18 21:59 Dose: 10 unit Insulin Human Regular (Humulin R) 10 units SC AC [facility] Last Admin: 01/24/18 18:00 Dose: Not Given Insulin Human Regular (Humulin R High) 0 units SC ACHS [facility]; Protocol Last Admin: 01/24/18 22:36 Dose: Not Given Latanoprost (Xalatan Opht) 0 ml OU HS [facility] Last Admin: 01/24/18 21:59 Dose: 2.5 ml Levothyroxine Sodium (Synthroid) 50 mcg PO 0600 [facility] Last Admin: 01/25/18 06:09 Dose: 50 mcg Metoprolol Tartrate (Lopressor) 25 mg PO BID [facility] Last Admin: 01/24/18 17:59 Dose: 25 mg Oxycodone HCl (Oxycodone Immediate Release Tab) 5 mg PO Q6H PRN PRN Reason: Pain, moderate (4-7) Last Admin: 01/25/18 06:55 Dose: 5 mg Sodium Chloride ([place] Nasal [place]) 0 ml NS Q2 PRN PRN Reason: nasal congestion. Ticagrelor (Brilinta) 90 mg PO BID [facility] Last Admin: 01/24/18 17:58 Dose: 90 mg Zaleplon (Sonata) 5 mg PO HS [facility] Last Admin: 01/24/18 21:59 Dose: 5 mg - Labs Labs: 01/24/18 15:45 01/24/18 15:45 PT 20.6 SECONDS (9.4-12.5) H 01/23/18 08:50 INR 1.77 01/23/18 08:50 APTT 33.8 Seconds (25.1-36.5) 01/23/18 08:50 - Constitutional Appears: Non-toxic, No Acute Distress - Head Exam Head Exam: NORMAL INSPECTION, NORMOCEPHALIC - Eye Exam Eye Exam: Normal appearance Pupil Exam: NORMAL ACCOMODATION - ENT Exam ENT Exam: Mucous Membranes Moist - Respiratory Exam Respiratory Exam: Decreased Breath Sounds, Clear to Ausculation Bilateral, NORMAL BREATHING PATTERN - Cardiovascular Exam Cardiovascular Exam: +S1, +S2 Additional comments: PPM - GI/Abdominal Exam GI & Abdominal Exam: Distended, Soft, Normal Bowel Sounds - Exam Additional comments: ESRD on hemodialysis 3 x a week - Extremities Exam Additional comments: left AV shunt positive bruit left middle finger ampuation with kerlix right BKA stump with wound VAC - Neurological Exam Neurological Exam: Alert, Awake, Oriented x3 - Psychiatric Exam Psychiatric exam: Normal Affect, Normal Mood - Skin Skin Exam: Dry, Normal Color, Warm Assessment and Plan - Assessment and Plan (Free Text) Assessment: A 52 year old male obese who came in to the ER due to diarrhea for the past week prior to admission. History of very brittle insulin dependent diabetes mellitus, diabetic neuropathy,diabetic retinopathy,nephropathy,end stage renal disease, on hemodialysis 3x a week, left arm AV shunt /fistula, hypertension, hyperlipidemia,TIA, coronary artery disease with stents,resistant to Plavix, on Brilinta. severe peripheral vascular disease, post right below knee amputation, left middle finger amputation,TIA, PPM for sick sinus syndrome. subdural hematoma due to fall, COPD, pancreatitis. No evidence of myocardial infarction. Troponin negative, Positive for C-difficile.Right BKA stump positive for VRE. Blood culture from 01/17 positive for serratia, repeat blood culture done 01/18/18, so far no growth after [address] of head done to rule out bleeding. CT showed no hemorrhage/bleeding.Refusing CPAP/BIPAP at night. Had debridement of right BKA stump with wound VAC. Plan: Awake, alert, conversant Post debridement/surgery of right BKA stump with wound VAC On contact isolation Right BKA stump positive for VRE, repeat culture sent after debridement awaiting result Repeat blood culture done on 01/18, so far negative after 3 days Continue IV antibiotics as ordered by ID Blood pressure stable Heart rate stable Cardiac status stable Control glucose Nutritional support On ASA 81 mg daily,Lipitor 80 mg daily, Tricor 145 mg daily, Heparin 5000 units SC every 12 hours, Solucortef 100 mg IV every 8 hours Synthroid 50 mcg daily,Brilinta 90 mg BID With Advance directives Continue current treatment Continue current medications Chart reviewed Will follow up Plan and treatment discussed with Dr. Erickson
[2018-01-25] MEDS: Arformoterol 15 mcg/2 ml Inh Sol IH SCH ×2 (08:18→20:36)
[2018-01-25] MEDS: Budesonide 0.5 mg/2 ml Inhal Susp UD IH SCH ×2 (08:18→20:36)
[2018-01-25 09:32] LABS: EOS % 0.2 % (1.5-5.0); GRAN # 9.4 (1.4-6.5); GRAN % 85.2 % (50.0-68.0); HEMOGLOBIN 8.5 g/dL (14.0-18.0); LYMPH % 9.3 % (22.0-35.0); MEAN CELL VOLUME 96.8 fl (80.0-105.0); MEAN CORPUSCULAR HEMOGLOBIN 30.1 pg (25.0-35.0); MEAN CORPUSCULAR HGB CONC 31.1 g/dl (31.0-37.0); MEAN PLATELET VOLUME 12.1 fl (7.0-11.0); MONO # 0.6 (0.1-0.6); MONO % 5.3 % (1.0-6.0); RBC 2.82 10^6/uL (3.5-6.1); RED CELL DISTRIBUTION WIDTH 18.6 % (11.5-14.5)
[2018-01-25 09:38] LABS: BLOOD UREA NITROGEN 47 mg/dL (7-21); CALCIUM 7.6 mg/dL (8.4-10.5); GFR NON-AFRICAN AMERICAN 18
--- NOTE | 2018-01-25 10:15 | CP.PCM.PN ---
<Jojo Crouch - Last Filed: 01/25/18 13:00> Subjective - Date & Time of Evaluation Date of Evaluation: 01/25/18 Time of Evaluation: 07:10 - Subjective Subjective: Jojo Crouch DO, PGY-2: Progress Note for Dr. Potter Patient was seen and examined at bedside. He reports trying to get himself out of the "doldrums." His right pinky was noticeably blue today. Interventional radiology was consulted. Objective - Vital Signs/Intake and Output Vital Signs (last 24 hours): Temp Pulse Resp BP Pulse Ox 97.1 F L 82 19 150/69 100 01/24/18 12:00 01/24/18 17:59 01/24/18 12:00 01/24/18 17:59 01/24/18 06:00 Intake and Output: 01/25/18 01/25/18 06:59 18:59 Intake Total 1280 Output Total 0 Balance 1280 - Medications Medications: Current Medications Acetaminophen (Tylenol 325mg Tab) 650 mg PO Q6H PRN PRN Reason: Pain, moderate (4-7) Last Admin: 01/23/18 06:26 Dose: 650 mg Albuterol/Ipratropium (Duoneb 3 Mg/0.5 Mg (3 Ml) Ud) 3 ml IH [id number] PRN PRN Reason: Shortness of Breath Last Admin: 01/22/18 08:18 Dose: 3 ml Arformoterol Tartrate (Brovana) 15 mcg IH [id number] [facility] Last Admin: 01/25/18 08:18 Dose: 15 mcg Aspirin (Ecotrin) 81 mg PO DAILY [facility] Last Admin: 01/24/18 10:20 Dose: 81 mg Atorvastatin Calcium (Lipitor) 80 mg PO HS [facility] Last Admin: 01/24/18 22:01 Dose: 80 mg Bacitracin (Bacitracin) 1 ea TOP BID [facility] Last Admin: 01/24/18 18:01 Dose: 1 ea Budesonide (Pulmicort Respules) 0.5 mg IH Q12H [facility] Last Admin: 01/25/18 08:18 Dose: 0.5 mg Collagenase (Santyl) 1 gm TOP DAILY [facility] Last Admin: 01/24/18 10:21 Dose: Not Given Duloxetine HCl (Cymbalta) 40 mg PO DAILY [facility] Famotidine (Pepcid) 20 mg PO HS [facility] Last Admin: 01/24/18 21:59 Dose: 20 mg Fenofibrate (Tricor) 145 mg PO DAILY [facility] Last Admin: 01/24/18 10:20 Dose: 145 mg Fluticasone Propionate (Flonase) 1 actuation NS DAILY PRN PRN Reason: Nasal congestion Guaifenesin (Mucinex La) 600 mg PO BID PRN PRN Reason: Cough Heparin Sodium (Porcine) (Heparin) 5,000 units SC Q12 [facility]; Protocol Last Admin: 01/24/18 21:51 Dose: 5,000 units Meropenem/Sodium Chloride (Merrem Iv 500 Mg/Ns 50 Ml) 500 mg in 50 mls @ 100 mls/hr IVPB Q12 [facility]; Protocol Last Admin: 01/24/18 22:00 Dose: 100 mls/hr Insulin Detemir (Levemir) 10 unit SC HS [facility] Last Admin: 01/24/18 21:59 Dose: 10 unit Insulin Human Regular (Humulin R) 10 units SC AC [facility] Last Admin: 01/24/18 18:00 Dose: Not Given Insulin Human Regular (Humulin R High) 0 units SC ACHS [facility]; Protocol Last Admin: 01/24/18 22:36 Dose: Not Given Latanoprost (Xalatan Opht) 0 ml OU [facility] Last Admin: 01/24/18 21:59 Dose: 2.5 ml Levothyroxine Sodium (Synthroid) 50 mcg PO 0600 [facility] Last Admin: 01/25/18 06:09 Dose: 50 mcg Metoprolol Tartrate (Lopressor) 25 mg PO BID [facility] Last Admin: 01/24/18 17:59 Dose: 25 mg Oxycodone HCl (Oxycodone Immediate Release Tab) 5 mg PO Q6H PRN PRN Reason: Pain, moderate (4-7) Last Admin: 01/25/18 06:55 Dose: 5 mg Sodium Chloride (Haines Nasal [place]) 0 ml NS Q2 PRN PRN Reason: nasal congestion. Ticagrelor (Brilinta) 90 mg PO BID [facility] Last Admin: 01/24/18 17:58 Dose: 90 mg Zaleplon (Sonata) 5 mg PO HS [facility] Last Admin: 01/24/18 21:59 Dose: 5 mg - Labs Labs: 01/25/18 09:00 01/25/18 09:00 PT 20.6 SECONDS (9.4-12.5) H 01/23/18 08:50 INR 1.77 01/23/18 08:50 APTT 33.8 Seconds (25.1-36.5) 01/23/18 08:50 - Constitutional Appears: Non-toxic, No Acute Distress - Head Exam Head Exam: ATRAUMATIC, NORMOCEPHALIC - Eye Exam Eye Exam: EOMI, Normal appearance - ENT Exam ENT Exam: Mucous Membranes Moist - Neck Exam Neck Exam: Normal Inspection - Respiratory Exam Respiratory Exam: Clear to Ausculation Bilateral, NORMAL BREATHING PATTERN. absent: Accessory Muscle Use - GI/Abdominal Exam GI & Abdominal Exam: Soft, Normal Bowel Sounds - Extremities Exam Extremities Exam: absent: Calf Tenderness Additional comments: R BKA noted with wound vacuum - Neurological Exam Neurological Exam: Alert, Awake, Oriented x3 - Psychiatric Exam Psychiatric exam: Normal Affect, Normal Mood - Skin Skin Exam: Dry, Intact, Normal Color, Warm Assessment and Plan - Assessment and Plan (Free Text) Assessment: 52 year old male with a past medical history notable for ESRD, CAD with NE 4 months ago, right BKA, and left third digit amputation who presents with melena and diarrhea. His blood cultures are growing Serratia Marcesans from infected right BKA. Today, patient is s/p local debridement and wound vacuum placement of the right BKA. Right index finger turned blue in the past 24 hours, and Dr. Alfredo Wynn was consulted. Plan: 1) Sepsis secondary to Serratia Marcescans bacteremia from right BKA stump infection - Patient is POD #1 from local wound debridement and wound vacuum placement on right BKA - Merropenem 500 mg q12h day 8 of 1a) Gangrenous necrosis of right index finger - Dr. Wynn IRadiologist, consulted 2) ESRD - Continue with dialysis TTS 3) CAD - Continue Brillinta 90 mg BID - Aspirin 81 mg - Metroprolol 25 mg BID (currently held) - Atorvastatin 80 mg HS - Dr. Erickson consulted, appreciate recommendations 4) DM II - Humulin 10 mg AC with fingerstick BG ACHS - Levemir 10 mg HS - Blood sugars goals are between 150-200 5) Upper respiratory symptoms - Mucinex LA 650 PRN - Flonase PRN - Duonebs q6h PRN for dyspnea 6) Hypothyroidism - Levothyroxine 50 mcg PO daily 7) Hyperlipidemia - Fenofibrate 145 mg PO daily 8) Glaucoma - Latanoprost drops OU 9) Adrenal insufficiency - Morning cortisol was 120 (5-6 times the ULN) - Solucortef 50 mg daily was discontinued 10) RENATA - Continue with noninvasive positive airway pressure as per pulmonology's recommendations 11) Depressed mood in a patient with multiple, life-threatening comorbidities - Dr. Malin consulted, patient may benefit from cognitive behavioral therapy and medications, appreciate recommendations - Agree with Sonata and Duloxetine 12) Physical therapy in the setting of recent BKA - Physical therapy evaluation submitted 13) DVT/GI prophylaxis - Heparin 5,000 q12h - Pepcid 20 mg HS Disposition: Guarded Case was reviewed and discussed with attending physician, Dr. Potter <Gallo Potter S - Last Filed: 01/25/18 18:33> Objective - Vital Signs/Intake and Output Vital Signs (last 24 hours): Temp Pulse Resp BP Pulse Ox 97.1 F L 82 18 154/56 H 100 01/24/18 12:00 01/24/18 17:59 01/25/18 12:00 01/25/18 12:00 01/24/18 06:00 Intake and Output: 01/25/18 01/25/18 06:59 18:59 Intake Total 1280 Output Total 0 Balance 1280 - Medications Medications: Current Medications Acetaminophen (Tylenol 325mg Tab) 650 mg PO Q6H PRN PRN Reason: Pain, moderate (4-7) Last Admin: 01/25/18 11:27 Dose: 650 mg Albuterol/Ipratropium (Duoneb 3 Mg/0.5 Mg (3 Ml) Ud) 3 ml IH [id number] PRN PRN Reason: Shortness of Breath Last Admin: 01/22/18 08:18 Dose: 3 ml Arformoterol Tartrate (Brovana) 15 mcg IH [id number] [facility] Last Admin: 01/25/18 08:18 Dose: 15 mcg Aspirin (Ecotrin) 81 mg PO DAILY [facility] Last Admin: 01/25/18 11:28 Dose: 81 mg Atorvastatin Calcium (Lipitor) 80 mg PO HS [facility] Last Admin: 01/24/18 22:01 Dose: 80 mg Bacitracin (Bacitracin) 1 ea TOP BID [facility] Last Admin: 01/25/18 11:33 Dose: 1 ea Budesonide (Pulmicort Respules) 0.5 mg IH Q12H [facility] Last Admin: 01/25/18 08:18 Dose: 0.5 mg Collagenase (Santyl) 1 gm TOP DAILY [facility] Last Admin: 01/25/18 11:29 Dose: 1 applic Duloxetine HCl (Cymbalta) 40 mg PO DAILY [facility] Last Admin: 01/25/18 11:28 Dose: 40 mg Famotidine (Pepcid) 20 mg PO HS [facility] Last Admin: 01/24/18 21:59 Dose: 20 mg Fenofibrate (Tricor) 145 mg PO DAILY [facility] Last Admin: 01/25/18 11:28 Dose: 145 mg Fluticasone Propionate (Flonase) 1 actuation NS DAILY PRN PRN Reason: Nasal congestion Guaifenesin (Mucinex La) 600 mg PO BID PRN PRN Reason: Cough Heparin Sodium (Porcine) (Heparin) 5,000 units SC Q12 [facility]; Protocol Last Admin: 01/25/18 11:13 Dose: Not Given Meropenem/Sodium Chloride (Merrem Iv 500 Mg/Ns 50 Ml) 500 mg in 50 mls @ 100 mls/hr IVPB Q12 [facility]; Protocol Last Admin: 01/25/18 11:39 Dose: 100 mls/hr Insulin Detemir (Levemir) 10 unit SC HS [facility] Last Admin: 01/24/18 21:59 Dose: 10 unit Insulin Human Regular (Humulin R) 10 units SC AC [facility] Last Admin: 01/25/18 11:36 Dose: 10 units Insulin Human Regular (Humulin R High) 0 units SC ACHS [facility]; Protocol Last Admin: 01/25/18 11:37 Dose: 4 units Latanoprost (Xalatan Opht) 0 ml OU HS [facility] Last Admin: 01/24/18 21:59 Dose: 2.5 ml Levothyroxine Sodium (Synthroid) 50 mcg PO 0600 [facility] Last Admin: 01/25/18 06:09 Dose: 50 mcg Metoprolol Tartrate (Lopressor) 25 mg PO BID [facility] Last Admin: 01/25/18 11:29 Dose: Not Given Oxycodone HCl (Oxycodone Immediate Release Tab) 5 mg PO Q6H PRN PRN Reason: Pain, moderate (4-7) Last Admin: 01/25/18 12:43 Dose: 5 mg Sodium Chloride (Haines Nasal [place]) 0 ml NS Q2 PRN PRN Reason: nasal congestion. Ticagrelor (Brilinta) 90 mg PO BID [facility] Last Admin: 01/25/18 11:28 Dose: 90 mg Zaleplon (Sonata) 5 mg PO HS [facility] Last Admin: 01/24/18 21:59 Dose: 5 mg - Labs Labs: 01/25/18 09:00 01/25/18 09:00 PT 20.6 SECONDS (9.4-12.5) H 01/23/18 08:50 INR 1.77 01/23/18 08:50 APTT 33.8 Seconds (25.1-36.5) 01/23/18 08:50 Assessment and Plan - Assessment and Plan (Free Text) Assessment: Pt seen and examined. I have reviewed the note of the medical operations supervisor and agree with it. I have discussed the assessment and plan with the resident. I have reviewed the patient's labs and medications. Pt with R leg wound and the sepsis has improved. Surgery is following pt. He is continuing with HD. His R 5th finger is becoming gangernous. I spoke to Dr Alfredo Wynn and the pt will need an angiogram. It is planned for Monday. He is asking for more pain and states his pain medications do not last for the 6 h. I will change the timing of his Percoc et to q4 h. He is being followed by psych. Pt with CAD and is on ASA and Metoprolol. Dm-2 is controlled. Periperal Neuropathy is controlled.
[2018-01-25 10:16] LABS: ALB/GLOB RATIO 0.6 (1.1-1.8); ALBUMIN 2.4 g/dL (3.0-4.8)
[2018-01-25] MEDS: Insulin Reg-HIGH-Coverage SC SCH ×4 (11:10→22:00)
[2018-01-25] MEDS: Insulin Regular 1 UNITS/0.01 ML ML SC SCH ×3 (11:12→18:40)
[2018-01-25] MEDS: Collagenase 250 Units/gm Ointment(30 gm) TOP SCH (11:29)
[2018-01-25] MEDS: Bacitracin 500 Units/gm Oint Foilpak UD TOP SCH ×2 (11:33→18:33)
[2018-01-25] MEDS: MEROPENEM 500 MG in NS 500 MG/50 ML BAG IVPB SCH ×2 (11:39→22:40)
--- NOTE | 2018-01-25 11:46 | CP.PCM.PN ---
<Kuldip Nur - Last Filed: 01/25/18 11:44> Subjective - Date & Time of Evaluation Date of Evaluation: 01/25/18 Time of Evaluation: 11:44 - Subjective Subjective: PGY-2 GI progress note for Dr Ahn. No acute events noted overnight. Patient appeared much better today and seemed to be a good mood - he stated he was having soft bowel movements - denied diarrhea. Denied abdominal pain. Denied fevers. Tolerating diet. Objective - Vital Signs/Intake and Output Vital Signs (last 24 hours): Temp Pulse Resp BP Pulse Ox 97.1 F L 82 19 150/69 100 01/24/18 12:00 01/24/18 17:59 01/24/18 12:00 01/24/18 17:59 01/24/18 06:00 Intake and Output: 01/25/18 01/25/18 06:59 18:59 Intake Total 1280 Output Total 0 Balance 1280 - Medications Medications: Current Medications Acetaminophen (Tylenol 325mg Tab) 650 mg PO Q6H PRN PRN Reason: Pain, moderate (4-7) Last Admin: 01/25/18 11:27 Dose: 650 mg Albuterol/Ipratropium (Duoneb 3 Mg/0.5 Mg (3 Ml) Ud) 3 ml IH [id number] PRN PRN Reason: Shortness of Breath Last Admin: 01/22/18 08:18 Dose: 3 ml Arformoterol Tartrate (Brovana) 15 mcg IH [id number] [facility] Last Admin: 01/25/18 08:18 Dose: 15 mcg Aspirin (Ecotrin) 81 mg PO DAILY [facility] Last Admin: 01/25/18 11:28 Dose: 81 mg Atorvastatin Calcium (Lipitor) 80 mg PO HS [facility] Last Admin: 01/24/18 22:01 Dose: 80 mg Bacitracin (Bacitracin) 1 ea TOP BID [facility] Last Admin: 01/25/18 11:33 Dose: 1 ea Budesonide (Pulmicort Respules) 0.5 mg IH Q12H [facility] Last Admin: 01/25/18 08:18 Dose: 0.5 mg Collagenase (Santyl) 1 gm TOP DAILY [facility] Last Admin: 01/25/18 11:29 Dose: 1 applic Duloxetine HCl (Cymbalta) 40 mg PO DAILY [facility] Last Admin: 01/25/18 11:28 Dose: 40 mg Famotidine (Pepcid) 20 mg PO HS [facility] Last Admin: 01/24/18 21:59 Dose: 20 mg Fenofibrate (Tricor) 145 mg PO DAILY [facility] Last Admin: 01/25/18 11:28 Dose: 145 mg Fluticasone Propionate (Flonase) 1 actuation NS DAILY PRN PRN Reason: Nasal congestion Guaifenesin (Mucinex La) 600 mg PO BID PRN PRN Reason: Cough Heparin Sodium (Porcine) (Heparin) 5,000 units SC Q12 [facility]; Protocol Last Admin: 01/25/18 11:13 Dose: Not Given Meropenem/Sodium Chloride (Merrem Iv 500 Mg/Ns 50 Ml) 500 mg in 50 mls @ 100 mls/hr IVPB Q12 [facility]; Protocol Last Admin: 01/25/18 11:39 Dose: 100 mls/hr Insulin Detemir (Levemir) 10 unit SC HS [facility] Last Admin: 01/24/18 21:59 Dose: 10 unit Insulin Human Regular (Humulin R) 10 units SC AC [facility] Last Admin: 01/25/18 11:36 Dose: 10 units Insulin Human Regular (Humulin R High) 0 units SC ACHS [facility]; Protocol Last Admin: 01/25/18 11:37 Dose: 4 units Latanoprost (Xalatan Opht) 0 ml OU [facility] Last Admin: 01/24/18 21:59 Dose: 2.5 ml Levothyroxine Sodium (Synthroid) 50 mcg PO 0600 [facility] Last Admin: 01/25/18 06:09 Dose: 50 mcg Metoprolol Tartrate (Lopressor) 25 mg PO BID [facility] Last Admin: 01/25/18 11:29 Dose: Not Given Oxycodone HCl (Oxycodone Immediate Release Tab) 5 mg PO Q6H PRN PRN Reason: Pain, moderate (4-7) Last Admin: 01/25/18 06:55 Dose: 5 mg Sodium Chloride (Lee Nasal [place]) 0 ml NS Q2 PRN PRN Reason: nasal congestion. Ticagrelor (Brilinta) 90 mg PO BID [facility] Last Admin: 01/25/18 11:28 Dose: 90 mg Zaleplon (Sonata) 5 mg PO [facility] Last Admin: 01/24/18 21:59 Dose: 5 mg - Labs Labs: 01/25/18 09:00 01/25/18 09:00 PT 20.6 SECONDS (9.4-12.5) H 01/23/18 08:50 INR 1.77 01/23/18 08:50 APTT 33.8 Seconds (25.1-36.5) 01/23/18 08:50 - Additional Findings Additional findings: - Constitutional Appears: Non-toxic, No Acute Distress, Older Than Stated Age, Chronically Ill - Head Exam Head Exam: ATRAUMATIC, NORMOCEPHALIC - Eye Exam Eye Exam: EOMI, Normal appearance, PERRL - ENT Exam ENT Exam: Mucous Membranes Moist - Respiratory Exam Respiratory Exam: Clear to Auscultation Bilateral, NORMAL BREATHING PATTERN. absent: Rales, Rhonchi, Wheezes - Cardiovascular Exam Cardiovascular Exam: REGULAR RHYTHM, +S1, +S2. absent: Gallop, Rubs, Systolic Murmur - GI/Abdominal Exam GI & Abdominal Exam: Normal Bowel Sounds, Soft. absent: Distended, Firm, Guarding, Rebound, Rigid, Tenderness - Extremities Exam Extremities exam: Positive for: full ROM Additional comments: S/p R BKA, dressing site c/d/i; wound vac in place - Neurological Exam Neurological exam: Alert, CN II-XII Intact, Oriented x3 - Psychiatric Exam Psychiatric exam: Normal Affect, Normal Mood - Skin Skin Exam: Dry, Intact, Warm Assessment and Plan - Assessment and Plan (Free Text) Plan: 52 y/o Male w/ PMHx of CHF, HTN, BPH, CVA, DM2, anemia, ESRD on HD (T, Th, Sat), Neuropathy and recent R BKA with a PSHx of R BKA, cornea transplant, cholecystectomy presenting to the emergency department complaining of severe diarrhea intermittent for the past 2 weeks, associated with diffuse abdominal pain: Diarrhea, Resolved -currently afebrile, white count increased possibly due to hydrocortisone vs infectious process -cdiff toxin and antigen negative -vre screen negative -CT abd/pelvis po contrast 01/16: * Small left pleural effusion and consolidation at left lung base. Mild ascites. No acute intra-abdominal findings. No evidence of enteritis or colitis -blood cx growing serratia marcescens and right leg wound cx growing klebsiella, serratia and VRE -received po flagyl for 2 days - discontinued by ID as diarrhea had resolved -s/p debridement of right BKA stump now on meropenem 500mg ivp q12h per ID -Recommend caution with steroids in bacteremia, however, patient has been on long-term steroids and complete cessation will cause adrenal insufficiency. Discussed with stain remover. Seen and discussed with Dr Ahn. <Jacquelin Ahn V - Last Filed: 01/25/18 23:57> Objective - Vital Signs/Intake and Output Vital Signs (last 24 hours): Temp Pulse Resp BP Pulse Ox 97.1 F L 82 18 154/56 H 100 01/24/18 12:00 01/24/18 17:59 01/25/18 12:00 01/25/18 12:00 01/24/18 06:00 Intake and Output: 01/25/18 01/26/18 18:59 06:59 Intake Total 600 Balance 600 - Medications Medications: Current Medications Acetaminophen (Tylenol 325mg Tab) 650 mg PO Q6H PRN PRN Reason: Pain, moderate (4-7) Last Admin: 01/25/18 18:44 Dose: 650 mg Albuterol/Ipratropium (Duoneb 3 Mg/0.5 Mg (3 Ml) Ud) 3 ml IH [id number] PRN PRN Reason: Shortness of Breath Last Admin: 01/22/18 08:18 Dose: 3 ml Amlodipine Besylate (Norvasc) 5 mg PO DAILY [facility] Arformoterol Tartrate (Brovana) 15 mcg IH [id number] [facility] Last Admin: 01/25/18 20:36 Dose: 15 mcg Aspirin (Ecotrin) 81 mg PO DAILY [facility] Last Admin: 01/25/18 11:28 Dose: 81 mg Atorvastatin Calcium (Lipitor) 80 mg PO HS [facility] Last Admin: 01/25/18 22:40 Dose: 80 mg Bacitracin (Bacitracin) 1 ea TOP BID [facility] Last Admin: 01/25/18 18:33 Dose: 1 ea Budesonide (Pulmicort Respules) 0.5 mg IH Q12H [facility] Last Admin: 01/25/18 20:36 Dose: 0.5 mg Collagenase (Santyl) 1 gm TOP DAILY [facility] Last Admin: 01/25/18 11:29 Dose: 1 applic Duloxetine HCl (Cymbalta) 40 mg PO DAILY [facility] Last Admin: 01/25/18 11:28 Dose: 40 mg Famotidine (Pepcid) 20 mg PO HS [facility] Last Admin: 01/25/18 22:40 Dose: 20 mg Fenofibrate (Tricor) 145 mg PO DAILY [facility] Last Admin: 01/25/18 11:28 Dose: 145 mg Fluticasone Propionate (Flonase) 1 actuation NS DAILY PRN PRN Reason: Nasal congestion Guaifenesin (Mucinex La) 600 mg PO BID PRN PRN Reason: Cough Heparin Sodium (Porcine) (Heparin) 5,000 units SC Q12 [facility]; Protocol Last Admin: 01/25/18 22:39 Dose: Not Given Meropenem/Sodium Chloride (Merrem Iv 500 Mg/Ns 50 Ml) 500 mg in 50 mls @ 100 mls/hr IVPB Q12 [facility]; Protocol Last Admin: 01/25/18 22:40 Dose: 100 mls/hr Insulin Detemir (Levemir) 10 unit SC HS [facility] Last Admin: 01/25/18 22:39 Dose: 10 unit Insulin Human Regular (Humulin R) 10 units SC AC [facility] Last Admin: 01/25/18 18:40 Dose: Not Given Insulin Human Regular (Humulin R High) 0 units SC [facility]; Protocol Last Admin: 01/25/18 18:40 Dose: Not Given Latanoprost (Xalatan Opht) 0 ml OU [facility] Last Admin: 01/25/18 22:41 Dose: 2.5 ml Levothyroxine Sodium (Synthroid) 50 mcg PO 0600 [facility] Last Admin: 01/25/18 06:09 Dose: 50 mcg Metoprolol Tartrate (Lopressor) 25 mg PO BID [facility] Last Admin: 01/25/18 18:39 Dose: Not Given Oxycodone HCl (Oxycodone Immediate Release Tab) 5 mg PO Q6H PRN PRN Reason: Pain, moderate (4-7) Last Admin: 01/25/18 12:43 Dose: 5 mg Sodium Chloride (Lee Nasal [place]) 0 ml NS Q2 PRN PRN Reason: nasal congestion. Ticagrelor (Brilinta) 90 mg PO BID [facility] Last Admin: 01/25/18 18:42 Dose: 90 mg Zaleplon (Sonata) 5 mg PO HS [facility] Last Admin: 01/25/18 22:40 Dose: 5 mg - Labs Labs: 01/25/18 09:00 01/25/18 09:00 PT 20.6 SECONDS (9.4-12.5) H 01/23/18 08:50 INR 1.77 01/23/18 08:50 APTT 33.8 Seconds (25.1-36.5) 01/23/18 08:50 Attending/Attestation - Attestation I have personally seen and examined this patient.: Yes I have fully participated in the care of the patient.: Yes I have reviewed all pertinent clinical information, including history, physical exam and plan: Yes Notes (Text): This is an addendum to GI followup report dictated by the Gas Manager. The patient was seen and evaluated earlier. Medical records, lab studies, imagings were reviewed. Last 24 hours events reviewed. Agreed with the above treatment plan as outlined in Gas Manager 's notes with the addition of the following 01/25/18 23:57
[2018-01-25] MEDS ORDERED: oxyCODONE 5 mg Immediate Release Tab PO STA (15:58)
[2018-01-25 17:32] LABS: FOLATE 6.5 ng/mL
[2018-01-25] MEDS: Insulin Detemir 100 units/ml Vial (Levemir) SC SCH ×2 (22:00→22:39)
[2018-01-25] MEDS: Latanoprost 2.5 ml Opht Soln OU SCH (22:41)
--- NOTE | 2018-01-25 23:22 | PN ---
DATE: 01/25/2018 REFERRING PHYSICIAN: Dr. Gallo Potter SUBJECTIVE: He is lying in the bed, head at 45 degrees. Night was unremarkable. Still has a lot of extremity pain, right hand fifth digit is ischemic, has a dressing on the left hand. Denies any cough or sputum production CPAP. No chest pain, no nausea, no vomiting, no diarrhea. OBJECTIVE: GENERAL: Mild distress secondary to pain. VITAL SIGNS: Temperature is 98, heart is 82, respiratory rate is 18, blood pressure 154/56, pulse ox 95%, 3 liters nasal cannula. HEENT: Moist mucous membrane. Crowded airway. NECK: Supple. No JVD. LUNGS: Have a fair airflow with rhonchi. HEART: S1 and S2. ABDOMEN: Soft, nontender, no organomegaly. EXTREMITIES: Has decreased pulses, right hand fifth digit is ischemic, right lower extremity BKA has a wound VAC on the incision site. NEUROLOGICAL: Awake, alert, follows simple commands. MEDICATIONS: He is on bacitracin on affected area twice a day, Brilinta 90 mg twice a day, Brovana inhaled twice a day, Cymbalta 40 mg daily, albuterol/Atrovent nebulizer every 6 hours p.r.n., Ecotrin 81 mg daily, Flonase 1 spray each nostril daily, heparin 5000 units subcu every 12 hours, Levemir 10 units subcu at bedtime, Lipitor 80 mg daily, metoprolol tartrate 25 mg twice a day, meropenem 500 mg twice a day, oxycodone immediate release 5 mg every 6 hours p.r.n., Pepcid 20 mg daily, Pulmicort inhaled twice a day, Santyl to affected area, Ambien 5 mg at bedtime, Synthroid 50 mcg daily, TriCor 145 mcg mg daily, Tylenol p.r.n. basis. LABORATORY DATA: Shows hemoglobin 8.5, hematocrit 27.3, WBC 11.0, platelet count is 82,000. Sodium 136, potassium 2.7, chloride 99, bicarbonate 28, BUN 47, creatinine 3.5, glucose 139, calcium 7.6, ferritin 921, total bili 1.2, AST 138, ALT 52, alk phos is 106. Albumin is 2.6. Vitamin B12 more than 1000. Folate is 6.5. Wound culture has gram-negative rods. IMPRESSION AND PLAN: Resolving septic shock, renal failure, dialysis dependent, chronic obstructive lung disease, coronary artery disease, cardiac arrhythmia requiring pacemaker, hypoventilation syndrome, sleep apnea syndrome, cardiac diastolic dysfunction, gastroparesis, peripheral vascular disease status post right knee amputation, left hand also has finger amputated, secondary ischemia, now has a right hand fifth digit ischemia which is a dry gangrene. From the last day or so, having good blood pressure, may add small dose of Norvasc and attempted to vascularize or improve flow to the bilateral upper extremities. She is on DVT prophylaxis. Also, on Brilinta. Encouraged CPAP use. Gastric prophylaxis. Infectious Disease has followup. May need a vascular surgery opinion. Thank you and we will follow with you. Jarred Escalera MD
--- NOTE | 2018-01-25 23:34 | CON ---
DATE OF CONSULTATION: 01/25/2018 HISTORY OF PRESENT ILLNESS: The patient is a 52-year-old male with history of mood disorder and anxiety disorder. The Psychiatry is seeing while he is being treated on the medical floor for his symptoms of depression and anxiety. I reviewed Dr. Tejada's consultations, which indicated the patient has actually been improving with Sonata and Cymbalta that were started for him,and the patient continues to report that he is improved when I visit with him this morning. The patient is alert and oriented to month, year, location, and circumstances. His eye contact is fair. His focus is good. He seems optimistic and reports that his mood is improved and has been tolerating the medications, and he is hopeful about the future. His thought process is coherent and responses are relevant and consistent with repeated questioning, and his behavior is calm and his impulse control is intact. There have been no major behavioral issues on the unit, and patient denies any side effects from the medications initiated and would like to continue with them. At this time, he denies having any concerns. IMPRESSION: Rule out mood disorder due to general medical condition. Rule out adjustment disorder with depression and anxiety, improving. As noted, relevant psychiatric medications were started; Cymbalta 40 mg daily and Sonata 5 mg at bedtime, which the patient had on 01/23/2018 and 01/24/2018. RECOMMENDATIONS: We will continue with current treatment and plan. The patient reports improvement with this current medication combination and would like to continue. He is not currently danger to himself or others, presents as coherent and consistent with appropriate affect, and there have been no behavioral issues. Psychiatry will sign off at this time. Please reconsult as needed and please provides appropriate psychiatric referrals when the patient is ultimately medically cleared. Brittni Gold MD
[2018-01-26] MEDS: oxyCODONE 5 mg Immediate Release Tab PO PRN ×2 (04:17→22:24)
[2018-01-26] MEDS: Levothyroxine 25 MCG TAB PO SCH (05:48)
--- NOTE | 2018-01-26 06:30 | CP.PCM.PN ---
<Lolis Rivas - Last Filed: 01/26/18 11:22> Subjective - Date & Time of Evaluation Date of Evaluation: 01/26/18 Time of Evaluation: 07:00 - Subjective Subjective: Infectious Disease Progress Note for Simon Zepeda PGY3 Patient seen and examined at bedside. Patient is comfortable in bed. No complaints at this time and is afebrile. Objective - Vital Signs/Intake and Output Vital Signs (last 24 hours): Temp Pulse Resp BP Pulse Ox 97.7 F 77 19 148/84 100 01/26/18 00:01 01/26/18 00:01 01/26/18 00:01 01/26/18 00:01 01/24/18 06:00 Intake and Output: 01/25/18 01/26/18 18:59 06:59 Intake Total 680 Output Total 0 Balance 680 - Medications Medications: Current Medications Acetaminophen (Tylenol 325mg Tab) 650 mg PO Q6H PRN PRN Reason: Pain, moderate (4-7) Last Admin: 01/25/18 18:44 Dose: 650 mg Albuterol/Ipratropium (Duoneb 3 Mg/0.5 Mg (3 Ml) Ud) 3 ml IH [id number] PRN PRN Reason: Shortness of Breath Last Admin: 01/22/18 08:18 Dose: 3 ml Amlodipine Besylate (Norvasc) 5 mg PO DAILY [facility] Arformoterol Tartrate (Brovana) 15 mcg IH [id number] [facility] Last Admin: 01/25/18 20:36 Dose: 15 mcg Aspirin (Ecotrin) 81 mg PO DAILY [facility] Last Admin: 01/25/18 11:28 Dose: 81 mg Atorvastatin Calcium (Lipitor) 80 mg PO HS [facility] Last Admin: 01/25/18 22:40 Dose: 80 mg Bacitracin (Bacitracin) 1 ea TOP BID [facility] Last Admin: 01/25/18 18:33 Dose: 1 ea Budesonide (Pulmicort Respules) 0.5 mg IH Q12H [facility] Last Admin: 01/25/18 20:36 Dose: 0.5 mg Collagenase (Santyl) 1 gm TOP DAILY [facility] Last Admin: 01/25/18 11:29 Dose: 1 applic Duloxetine HCl (Cymbalta) 40 mg PO DAILY [facility] Last Admin: 01/25/18 11:28 Dose: 40 mg Famotidine (Pepcid) 20 mg PO HS [facility] Last Admin: 01/25/18 22:40 Dose: 20 mg Fenofibrate (Tricor) 145 mg PO DAILY [facility] Last Admin: 01/25/18 11:28 Dose: 145 mg Fluticasone Propionate (Flonase) 1 actuation NS DAILY PRN PRN Reason: Nasal congestion Guaifenesin (Mucinex La) 600 mg PO BID PRN PRN Reason: Cough Heparin Sodium (Porcine) (Heparin) 5,000 units SC Q12 [facility]; Protocol Last Admin: 01/25/18 22:39 Dose: Not Given Meropenem/Sodium Chloride (Merrem Iv 500 Mg/Ns 50 Ml) 500 mg in 50 mls @ 100 mls/hr IVPB Q12 [facility]; Protocol Last Admin: 01/25/18 22:40 Dose: 100 mls/hr Insulin Detemir (Levemir) 10 unit SC HS [facility] Last Admin: 01/25/18 22:00 Dose: Not Given Insulin Human Regular (Humulin R) 10 units SC AC [facility] Last Admin: 01/25/18 18:40 Dose: Not Given Insulin Human Regular (Humulin R High) 0 units SC ACHS [facility]; Protocol Last Admin: 01/25/18 22:00 Dose: Not Given Latanoprost (Xalatan Opht) 0 ml OU [facility] Last Admin: 01/25/18 22:41 Dose: 2.5 ml Levothyroxine Sodium (Synthroid) 50 mcg PO 0600 [facility] Last Admin: 01/26/18 05:48 Dose: 50 mcg Metoprolol Tartrate (Lopressor) 25 mg PO BID [facility] Last Admin: 01/25/18 18:39 Dose: Not Given Oxycodone HCl (Oxycodone Immediate Release Tab) 5 mg PO Q6H PRN PRN Reason: Pain, moderate (4-7) Last Admin: 01/26/18 04:17 Dose: 5 mg Sodium Chloride ([place] Nasal [place]) 0 ml NS Q2 PRN PRN Reason: nasal congestion. Ticagrelor (Brilinta) 90 mg PO BID [facility] Last Admin: 01/25/18 18:42 Dose: 90 mg Zaleplon (Sonata) 5 mg PO [facility] Last Admin: 01/25/18 22:40 Dose: 5 mg - Labs Labs: 01/25/18 09:00 01/25/18 09:00 PT 20.6 SECONDS (9.4-12.5) H 01/23/18 08:50 INR 1.77 01/23/18 08:50 APTT 33.8 Seconds (25.1-36.5) 01/23/18 08:50 - Constitutional Appears: No Acute Distress, Chronically Ill - Head Exam Head Exam: ATRAUMATIC, NORMAL INSPECTION, NORMOCEPHALIC - Eye Exam Eye Exam: Normal appearance, PERRL Pupil Exam: NORMAL ACCOMODATION, PERRL - ENT Exam ENT Exam: Mucous Membranes Moist - Neck Exam Neck Exam: Full ROM - Respiratory Exam Respiratory Exam: Clear to Ausculation Bilateral, NORMAL BREATHING PATTERN. absent: Rales, Rhonchi, Wheezes - Cardiovascular Exam Cardiovascular Exam: REGULAR RHYTHM, +S1, +S2. absent: Gallop, Rubs, Murmur - GI/Abdominal Exam GI & Abdominal Exam: Soft, Normal Bowel Sounds. absent: Rigid, Tenderness, Mass, Rebound - Extremities Exam Additional comments: R leg stump wound vac in place- sanginous drainage R pinky finger necrotic - Neurological Exam Neurological Exam: Alert, Awake, CN II-XII Intact, Oriented x3 - Psychiatric Exam Psychiatric exam: Normal Affect, Normal Mood - Skin Skin Exam: Dry, Warm Assessment and Plan - Assessment and Plan (Free Text) Assessment: 1. Sepsis - secondary to R stump cellulitis s/p debridement POD #3 - Positive for Serratia Bacteremia 2. R TMA stump gangrene 3. Hx of Guerline glabrata fungemia 4. Hx of bilateral HCAP 5. Hx of sepsis secondary to C.diff 6. ESRD on HD 7. DM 8. CAD s/p PCI 9. Diabetic retinopathy 10. Obesity 11. Hx of pancreatitis Plan: Patient is on Merrem day #9 out of 14 days for serratia bacteremia. Leukocytosis resolved. Will continue to monitor clinically. Case seen, discussed and reviewed with Dr. Neli Rivas PGY3 <Pj Quinteros - Last Filed: 01/26/18 12:14> Objective - Vital Signs/Intake and Output Vital Signs (last 24 hours): Temp Pulse Resp BP Pulse Ox 97.8 F 83 19 148/71 99 01/26/18 06:00 01/26/18 06:00 01/26/18 06:00 01/26/18 06:00 01/26/18 06:00 Intake and Output: 01/26/18 01/26/18 06:59 18:59 Intake Total 1560 Output Total 0 Balance 1560 - Medications Medications: Current Medications Acetaminophen (Tylenol 325mg Tab) 650 mg PO Q6H PRN PRN Reason: Pain, moderate (4-7) Last Admin: 01/25/18 18:44 Dose: 650 mg Albuterol/Ipratropium (Duoneb 3 Mg/0.5 Mg (3 Ml) Ud) 3 ml IH [id number] PRN PRN Reason: Shortness of Breath Last Admin: 01/22/18 08:18 Dose: 3 ml Amlodipine Besylate (Norvasc) 5 mg PO DAILY [facility] Arformoterol Tartrate (Brovana) 15 mcg IH [id number] [facility] Last Admin: 01/26/18 08:13 Dose: Not Given Aspirin (Ecotrin) 81 mg PO DAILY [facility] Last Admin: 01/25/18 11:28 Dose: 81 mg Atorvastatin Calcium (Lipitor) 80 mg PO HS [facility] Last Admin: 01/25/18 22:40 Dose: 80 mg Bacitracin (Bacitracin) 1 ea TOP BID [facility] Last Admin: 01/25/18 18:33 Dose: 1 ea Budesonide (Pulmicort Respules) 0.5 mg IH Q12H [facility] Last Admin: 01/26/18 08:13 Dose: Not Given Collagenase (Santyl) 1 gm TOP DAILY [facility] Last Admin: 01/25/18 11:29 Dose: 1 applic Duloxetine HCl (Cymbalta) 40 mg PO DAILY [facility] Last Admin: 01/25/18 11:28 Dose: 40 mg Famotidine (Pepcid) 20 mg PO HS [facility] Last Admin: 01/25/18 22:40 Dose: 20 mg Fenofibrate (Tricor) 145 mg PO DAILY [facility] Last Admin: 01/25/18 11:28 Dose: 145 mg Fluticasone Propionate (Flonase) 1 actuation NS DAILY PRN PRN Reason: Nasal congestion Guaifenesin (Mucinex La) 600 mg PO BID PRN PRN Reason: Cough Heparin Sodium (Porcine) (Heparin) 5,000 units SC Q12 [facility]; Protocol Last Admin: 01/25/18 22:39 Dose: Not Given Meropenem/Sodium Chloride (Merrem Iv 500 Mg/Ns 50 Ml) 500 mg in 50 mls @ 100 mls/hr IVPB Q12 [facility]; Protocol Last Admin: 01/25/18 22:40 Dose: 100 mls/hr Insulin Detemir (Levemir) 10 unit SC HS [facility] Last Admin: 01/25/18 22:00 Dose: Not Given Insulin Human Regular (Humulin R) 10 units SC AC [facility] Last Admin: 01/26/18 08:42 Dose: Not Given Insulin Human Regular (Humulin R High) 0 units SC ACHS [facility]; Protocol Last Admin: 01/25/18 22:00 Dose: Not Given Latanoprost (Xalatan Opht) 0 ml OU HS [facility] Last Admin: 01/25/18 22:41 Dose: 2.5 ml Levothyroxine Sodium (Synthroid) 50 mcg PO 0600 [facility] Last Admin: 01/26/18 05:48 Dose: 50 mcg Metoprolol Tartrate (Lopressor) 25 mg PO BID [facility] Last Admin: 01/25/18 18:39 Dose: Not Given Oxycodone HCl (Oxycodone Immediate Release Tab) 5 mg PO Q6H PRN PRN Reason: Pain, moderate (4-7) Last Admin: 01/26/18 04:17 Dose: 5 mg Sodium Chloride ([place] Nasal [place]) 0 ml NS Q2 PRN PRN Reason: nasal congestion. Ticagrelor (Brilinta) 90 mg PO BID [facility] Last Admin: 01/25/18 18:42 Dose: 90 mg Zaleplon (Sonata) 5 mg PO [facility] Last Admin: 01/25/18 22:40 Dose: 5 mg - Labs Labs: 01/25/18 09:00 01/25/18 09:00 PT 20.6 SECONDS (9.4-12.5) H 01/23/18 08:50 INR 1.77 01/23/18 08:50 APTT 33.8 Seconds (25.1-36.5) 01/23/18 08:50 Assessment and Plan - Assessment and Plan (Free Text) Plan: Infectious Diseases Attending Physician Attestation Patient seen and examined, discussed with medical record transcriber. I have reviewed the patient's history of present illness, past medical, family and social histories, personal history, physical exam, lab findings and imaging studies. I agree with the above findings, assessment and plan. In addition, continue Merrem for this patient with Serratia bacteremia from leg stump infection - should complete 14 days (day 9 today). Follow up further plans of surgery. Will continue to follow clinically.
--- NOTE | 2018-01-26 07:30 | CP.PCM.PN ---
Subjective - Date & Time of Evaluation Date of Evaluation: 01/26/18 Time of Evaluation: 06:45 - Subjective Subjective: Lying in bed, no distress,alert, awake, denies shortness of breath,conversant Reason for consultation and follow up:Cardiac evaluation of chest pain,follow up of coronary artery disease, History of PPM, admitted for diarrhea, infected right BKA stump Seen and examined by me and Dr. Erickson Objective - Vital Signs/Intake and Output Vital Signs (last 24 hours): Temp Pulse Resp BP Pulse Ox 97.8 F 83 19 148/71 99 01/26/18 06:00 01/26/18 06:00 01/26/18 06:00 01/26/18 06:00 01/26/18 06:00 Intake and Output: 01/26/18 01/26/18 06:59 18:59 Intake Total 1560 Output Total 0 Balance 1560 - Medications Medications: Current Medications Acetaminophen (Tylenol 325mg Tab) 650 mg PO Q6H PRN PRN Reason: Pain, moderate (4-7) Last Admin: 01/25/18 18:44 Dose: 650 mg Albuterol/Ipratropium (Duoneb 3 Mg/0.5 Mg (3 Ml) Ud) 3 ml IH [id number] PRN PRN Reason: Shortness of Breath Last Admin: 01/22/18 08:18 Dose: 3 ml Amlodipine Besylate (Norvasc) 5 mg PO DAILY [facility] Arformoterol Tartrate (Brovana) 15 mcg IH [id number] [facility] Last Admin: 01/25/18 20:36 Dose: 15 mcg Aspirin (Ecotrin) 81 mg PO DAILY [facility] Last Admin: 01/25/18 11:28 Dose: 81 mg Atorvastatin Calcium (Lipitor) 80 mg PO HS [facility] Last Admin: 01/25/18 22:40 Dose: 80 mg Bacitracin (Bacitracin) 1 ea TOP BID [facility] Last Admin: 01/25/18 18:33 Dose: 1 ea Budesonide (Pulmicort Respules) 0.5 mg IH Q12H [facility] Last Admin: 01/25/18 20:36 Dose: 0.5 mg Collagenase (Santyl) 1 gm TOP DAILY [facility] Last Admin: 01/25/18 11:29 Dose: 1 applic Duloxetine HCl (Cymbalta) 40 mg PO DAILY [facility] Last Admin: 01/25/18 11:28 Dose: 40 mg Famotidine (Pepcid) 20 mg PO HS [facility] Last Admin: 01/25/18 22:40 Dose: 20 mg Fenofibrate (Tricor) 145 mg PO DAILY [facility] Last Admin: 01/25/18 11:28 Dose: 145 mg Fluticasone Propionate (Flonase) 1 actuation NS DAILY PRN PRN Reason: Nasal congestion Guaifenesin (Mucinex La) 600 mg PO BID PRN PRN Reason: Cough Heparin Sodium (Porcine) (Heparin) 5,000 units SC Q12 [facility]; Protocol Last Admin: 01/25/18 22:39 Dose: Not Given Meropenem/Sodium Chloride (Merrem Iv 500 Mg/Ns 50 Ml) 500 mg in 50 mls @ 100 mls/hr IVPB Q12 [facility]; Protocol Last Admin: 01/25/18 22:40 Dose: 100 mls/hr Insulin Detemir (Levemir) 10 unit SC HS [facility] Last Admin: 01/25/18 22:00 Dose: Not Given Insulin Human Regular (Humulin R) 10 units SC AC [facility] Last Admin: 01/25/18 18:40 Dose: Not Given Insulin Human Regular (Humulin R High) 0 units SC ACHS [facility]; Protocol Last Admin: 01/25/18 22:00 Dose: Not Given Latanoprost (Xalatan Opht) 0 ml OU [facility] Last Admin: 01/25/18 22:41 Dose: 2.5 ml Levothyroxine Sodium (Synthroid) 50 mcg PO 0600 [facility] Last Admin: 01/26/18 05:48 Dose: 50 mcg Metoprolol Tartrate (Lopressor) 25 mg PO BID [facility] Last Admin: 01/25/18 18:39 Dose: Not Given Oxycodone HCl (Oxycodone Immediate Release Tab) 5 mg PO Q6H PRN PRN Reason: Pain, moderate (4-7) Last Admin: 01/26/18 04:17 Dose: 5 mg Sodium Chloride ([place] Nasal [place]) 0 ml NS Q2 PRN PRN Reason: nasal congestion. Ticagrelor (Brilinta) 90 mg PO BID [facility] Last Admin: 01/25/18 18:42 Dose: 90 mg Zaleplon (Sonata) 5 mg PO [facility] Last Admin: 01/25/18 22:40 Dose: 5 mg - Labs Labs: 01/25/18 09:00 01/25/18 09:00 PT 20.6 SECONDS (9.4-12.5) H 01/23/18 08:50 INR 1.77 01/23/18 08:50 APTT 33.8 Seconds (25.1-36.5) 01/23/18 08:50 - Constitutional Appears: Non-toxic, No Acute Distress - Head Exam Head Exam: NORMAL INSPECTION, NORMOCEPHALIC - ENT Exam ENT Exam: Mucous Membranes Moist, Normal Exam - Respiratory Exam Respiratory Exam: Decreased Breath Sounds, Clear to Ausculation Bilateral, NORMAL BREATHING PATTERN - Cardiovascular Exam Cardiovascular Exam: +S1, +S2 Additional comments: PPM - Exam Additional comments: ESRD on hemodialysis 3x a week - Extremities Exam Additional comments: left middle finger amputation left AV shunt + bruit Right BKA stump with hemovac bloody drainage - Neurological Exam Neurological Exam: Alert, Awake, Oriented x3 - Psychiatric Exam Psychiatric exam: Normal Affect, Normal Mood - Skin Skin Exam: Dry, Normal Color, Warm Assessment and Plan - Assessment and Plan (Free Text) Assessment: A 52 year old male obese who came in to the ER due to diarrhea for the past week prior to admission. History of very brittle insulin dependent diabetes melli tus, diabetic neuropathy,diabetic retinopathy,nephropathy,end stage renal disease, on hemodialysis 3x a week, left arm AV shunt /fistula, hypertension, hyperlipidemia,TIA, coronary artery disease with stents,resistant to Plavix, on Brilinta. severe peripheral vascular disease, post right below knee amputation, left middle finger amputation,TIA, PPM for sick sinus syndrome. subdural hematoma due to fall, COPD, pancreatitis. No evidence of myocardial infarction. Troponin negative, Positive for C-difficile.Right BKA stump positive for VRE. Blood culture from 01/17 positive for serratia, repeat blood culture done 01/18/18, so far no growth after [address] of head done to rule out bleeding. CT showed no hemorrhage/bleeding.Refusing CPAP/BIPAP at night. Had debridement of right BKA stump with wound VAC. Plan: Awake, alert, conversant Post debridement/surgery of right BKA stump with wound VAC On contact isolation Continue IV antibiotics as ordered by ID Blood pressure stable Heart rate stable Cardiac status stable Monitor H/H,trending down to 8.5/27.3 Consider transfusing below 8 to prevent cardiac compromise. Control glucose Nutritional support On ASA 81 mg daily,Lipitor 80 mg daily, Tricor 145 mg daily, Heparin 5000 units SC every 12 hours, Solucortef 100 mg IV every 8 hours Synthroid 50 mcg daily,Brilinta 90 mg BID With Advance directives Continue current treatment Continue current medications Chart reviewed Will follow up Plan and treatment discussed with Dr. Erickson
[2018-01-26] MEDS ORDERED: Oxycodone/Acetaminophen 5/325 mg Tab PO ONE (07:35)
--- NOTE | 2018-01-26 07:35 | CP.PCM.PN ---
<Jojo Crouch - Last Filed: 01/26/18 10:00> Subjective - Date & Time of Evaluation Date of Evaluation: 01/26/18 Time of Evaluation: 07:34 - Subjective Subjective: Jojo Crouch DO, PGY-2: Progress Note for Dr. Potter Patient was seen and examined and bedside. Patient reports his wound vacuum was re-plastered. He reports that his pain at the right BKA site is controlled. He denied having any chest pain, diarrhea, nausea or vomiting. Patient states he will be getting an angiogram on Monday to take a look at the right arm's vasculature supply. Objective - Vital Signs/Intake and Output Vital Signs (last 24 hours): Temp Pulse Resp BP Pulse Ox 97.8 F 83 19 148/71 99 01/26/18 06:00 01/26/18 06:00 01/26/18 06:00 01/26/18 06:00 01/26/18 06:00 Intake and Output: 01/26/18 01/26/18 06:59 18:59 Intake Total 1560 Output Total 0 Balance 1560 - Medications Medications: Current Medications Acetaminophen (Tylenol 325mg Tab) 650 mg PO Q6H PRN PRN Reason: Pain, moderate (4-7) Last Admin: 01/25/18 18:44 Dose: 650 mg Albuterol/Ipratropium (Duoneb 3 Mg/0.5 Mg (3 Ml) Ud) 3 ml IH [id number] PRN PRN Reason: Shortness of Breath Last Admin: 01/22/18 08:18 Dose: 3 ml Amlodipine Besylate (Norvasc) 5 mg PO DAILY [facility] Arformoterol Tartrate (Brovana) 15 mcg IH [id number] [facility] Last Admin: 01/25/18 20:36 Dose: 15 mcg Aspirin (Ecotrin) 81 mg PO DAILY [facility] Last Admin: 01/25/18 11:28 Dose: 81 mg Atorvastatin Calcium (Lipitor) 80 mg PO HS [facility] Last Admin: 01/25/18 22:40 Dose: 80 mg Bacitracin (Bacitracin) 1 ea TOP BID [facility] Last Admin: 01/25/18 18:33 Dose: 1 ea Budesonide (Pulmicort Respules) 0.5 mg IH Q12H [facility] Last Admin: 01/25/18 20:36 Dose: 0.5 mg Collagenase (Santyl) 1 gm TOP DAILY [facility] Last Admin: 01/25/18 11:29 Dose: 1 applic Duloxetine HCl (Cymbalta) 40 mg PO DAILY [facility] Last Admin: 01/25/18 11:28 Dose: 40 mg Famotidine (Pepcid) 20 mg PO HS [facility] Last Admin: 01/25/18 22:40 Dose: 20 mg Fenofibrate (Tricor) 145 mg PO DAILY [facility] Last Admin: 01/25/18 11:28 Dose: 145 mg Fluticasone Propionate (Flonase) 1 actuation NS DAILY PRN PRN Reason: Nasal congestion Guaifenesin (Mucinex La) 600 mg PO BID PRN PRN Reason: Cough Heparin Sodium (Porcine) (Heparin) 5,000 units SC Q12 [facility]; Protocol Last Admin: 01/25/18 22:39 Dose: Not Given Meropenem/Sodium Chloride (Merrem Iv 500 Mg/Ns 50 Ml) 500 mg in 50 mls @ 100 mls/hr IVPB Q12 [facility]; Protocol Last Admin: 01/25/18 22:40 Dose: 100 mls/hr Insulin Detemir (Levemir) 10 unit SC HS [facility] Last Admin: 01/25/18 22:00 Dose: Not Given Insulin Human Regular (Humulin R) 10 units SC AC [facility] Last Admin: 01/25/18 18:40 Dose: Not Given Insulin Human Regular (Humulin R High) 0 units SC ACHS [facility]; Protocol Last Admin: 01/25/18 22:00 Dose: Not Given Latanoprost (Xalatan Opht) 0 ml OU [facility] Last Admin: 01/25/18 22:41 Dose: 2.5 ml Levothyroxine Sodium (Synthroid) 50 mcg PO 0600 [facility] Last Admin: 01/26/18 05:48 Dose: 50 mcg Metoprolol Tartrate (Lopressor) 25 mg PO BID [facility] Last Admin: 01/25/18 18:39 Dose: Not Given Oxycodone HCl (Oxycodone Immediate Release Tab) 5 mg PO Q6H PRN PRN Reason: Pain, moderate (4-7) Last Admin: 01/26/18 04:17 Dose: 5 mg Sodium Chloride ([place] Nasal Krypton) 0 ml NS Q2 PRN PRN Reason: nasal congestion. Ticagrelor (Brilinta) 90 mg PO BID [facility] Last Admin: 01/25/18 18:42 Dose: 90 mg Zaleplon (Sonata) 5 mg PO HS [facility] Last Admin: 01/25/18 22:40 Dose: 5 mg - Labs Labs: 01/25/18 09:00 01/25/18 09:00 PT 20.6 SECONDS (9.4-12.5) H 01/23/18 08:50 INR 1.77 01/23/18 08:50 APTT 33.8 Seconds (25.1-36.5) 01/23/18 08:50 - Constitutional Appears: Non-toxic, No Acute Distress - Head Exam Head Exam: ATRAUMATIC, NORMOCEPHALIC - Eye Exam Eye Exam: EOMI, Normal appearance - ENT Exam ENT Exam: Mucous Membranes Moist - Neck Exam Neck Exam: Normal Inspection - Respiratory Exam Respiratory Exam: Clear to Ausculation Bilateral, NORMAL BREATHING PATTERN. absent: Accessory Muscle Use - Cardiovascular Exam Cardiovascular Exam: RRR, +S1, +S2 - GI/Abdominal Exam GI & Abdominal Exam: Soft, Normal Bowel Sounds - Extremities Exam Extremities Exam: Normal Inspection. absent: Calf Tenderness Additional comments: right BKA noted with wound vacuum in place right pinky is blue 1/3 distally - Back Exam Back Exam: NORMAL INSPECTION. absent: CVA tenderness (L), CVA tenderness (R) - Neurological Exam Neurological Exam: Alert, Awake, Oriented x3 - Psychiatric Exam Psychiatric exam: Normal Affect, Normal Mood - Skin Skin Exam: Dry, Intact, Normal Color, Warm Assessment and Plan - Assessment and Plan (Free Text) Assessment: 52 year old male with a past medical history notable for ESRD, CAD with [place] 4 months ago, right BKA, and left third digit amputation who presents with melena and diarrhea. His blood cultures are growing Serratia Marcesans from infected right BKA. Patient is s/p local debridement and wound vacuum placement of the right BKA. Right index finger is turning blue. Interventional radiologist was consulted who recommends angiogram of the right arm to look at vasculature, tentatively planned for Monday. Plan: 1a) Sepsis secondary to Serratia Marcescans bacteremia from right BKA stump infection - Patient is s/p local wound debridement and wound vacuum placement on right BKA - Merropenem 500 mg q12h day 10 of 13 1b) Dry Gangrene of right pinky finger - Dr. Wynn recommends angiogram of the right arm to be performed Monday 2) ESRD - Continue with dialysis 3) CAD - Continue Brillinta 90 mg BID - Aspirin 81 mg - Metroprolol 25 mg BID (currently held) - Atorvastatin 80 mg HS - Dr. Erickson consulted, appreciate recommendations 4) DM II - Humulin 10 mg AC with fingerstick BG ACHS - Levemir 10 mg HS - Blood sugars goals are between 150-200 5) Upper respiratory symptoms - Mucinex LA 650 PRN - Flonase PRN - Duonebs q6h PRN for dyspnea 6) Hypothyroidism - Levothyroxine 50 mcg PO daily 7) Hyperlipidemia - Fenofibrate 145 mg PO daily 8) Glaucoma - Latanoprost drops OU 9) Adrenal insufficiency - Morning cortisol was 120 (5-6 times the ULN) - Solucortef 50 mg daily was discontinued 10) RENATA - Continue with noninvasive positive airway pressure as per pulmonology's recommendations 11) Depressed mood in a patient with multiple, life-threatening comorbidities - Dr. Malin consulted, patient may benefit from cognitive behavioral therapy and medications, appreciate recommendations - Agree with Sonata and Duloxetine 12) Physical therapy in the setting of recent BKA - Physical therapy evaluation submitted 13) DVT/GI prophylaxis - Heparin 5,000 q12h - Pepcid 20 mg HS Disposition: Guarded Case was reviewed and discussed with attending physician, Dr. Potter <Gallo Potter - Last Filed: 01/26/18 19:53> Objective - Vital Signs/Intake and Output Vital Signs (last 24 hours): Temp Pulse Resp BP Pulse Ox 98 F 92 H 16 105/42 L 99 01/26/18 12:00 01/26/18 12:00 01/26/18 12:00 01/26/18 12:00 01/26/18 06:00 - Medications Medications: Current Medications Acetaminophen (Tylenol 325mg Tab) 650 mg PO Q6H PRN PRN Reason: Pain, moderate (4-7) Last Admin: 01/25/18 18:44 Dose: 650 mg Albuterol/Ipratropium (Duoneb 3 Mg/0.5 Mg (3 Ml) Ud) 3 ml IH [id number] PRN PRN Reason: Shortness of Breath Last Admin: 01/22/18 08:18 Dose: 3 ml Amlodipine Besylate (Norvasc) 5 mg PO DAILY [facility] Last Admin: 01/26/18 10:00 Dose: Not Given Arformoterol Tartrate (Brovana) 15 mcg IH [id number] [facility] Last Admin: 01/26/18 08:13 Dose: Not Given Aspirin (Ecotrin) 81 mg PO DAILY [facility] Last Admin: 01/26/18 12:10 Dose: 81 mg Atorvastatin Calcium (Lipitor) 80 mg PO HS [facility] Last Admin: 01/25/18 22:40 Dose: 80 mg Bacitracin (Bacitracin) 1 ea TOP BID [facility] Last Admin: 01/26/18 12:08 Dose: 1 ea Budesonide (Pulmicort Respules) 0.5 mg IH Q12H [facility] Last Admin: 01/26/18 08:13 Dose: Not Given Collagenase (Santyl) 1 gm TOP DAILY [facility] Last Admin: 01/25/18 11:29 Dose: 1 applic Duloxetine HCl (Cymbalta) 40 mg PO DAILY [facility] Last Admin: 01/26/18 12:10 Dose: 40 mg Famotidine (Pepcid) 20 mg PO HS [facility] Last Admin: 01/25/18 22:40 Dose: 20 mg Fenofibrate (Tricor) 145 mg PO DAILY [facility] Last Admin: 01/25/18 11:28 Dose: 145 mg Fluticasone Propionate (Flonase) 1 actuation NS DAILY PRN PRN Reason: Nasal congestion Guaifenesin (Mucinex La) 600 mg PO BID PRN PRN Reason: Cough Heparin Sodium (Porcine) (Heparin) 5,000 units SC Q12 [facility]; Protocol Last Admin: 01/26/18 15:40 Dose: Not Given Meropenem/Sodium Chloride (Merrem Iv 500 Mg/Ns 50 Ml) 500 mg in 50 mls @ 100 mls/hr IVPB Q12 [facility]; Protocol Last Admin: 01/26/18 12:14 Dose: 100 mls/hr Insulin Detemir (Levemir) 10 unit SC HS [facility] Last Admin: 01/25/18 22:00 Dose: Not Given Insulin Human Regular (Humulin R) 10 units SC AC [facility] Last Admin: 01/26/18 15:40 Dose: Not Given Insulin Human Regular (Humulin R High) 0 units SC ACHS [facility]; Protocol Last Admin: 01/26/18 15:41 Dose: Not Given Latanoprost (Xalatan Opht) 0 ml OU HS [facility] Last Admin: 01/25/18 22:41 Dose: 2.5 ml Levothyroxine Sodium (Synthroid) 50 mcg PO 0600 [facility] Last Admin: 01/26/18 05:48 Dose: 50 mcg Metoprolol Tartrate (Lopressor) 25 mg PO BID [facility] Last Admin: 01/26/18 10:00 Dose: Not Given Oxycodone HCl (Oxycodone Immediate Release Tab) 5 mg PO Q6H PRN PRN Reason: Pain, moderate (4-7) Last Admin: 01/26/18 04:17 Dose: 5 mg Sodium Chloride ([place] Nasal Krypton) 0 ml NS Q2 PRN PRN Reason: nasal congestion. Ticagrelor (Brilinta) 90 mg PO BID [facility] Last Admin: 01/26/18 12:09 Dose: 90 mg Zaleplon (Sonata) 5 mg PO [facility] Last Admin: 01/25/18 22:40 Dose: 5 mg - Labs Labs: 01/25/18 09:00 01/25/18 09:00 PT 20.6 SECONDS (9.4-12.5) H 01/23/18 08:50 INR 1.77 01/23/18 08:50 APTT 33.8 Seconds (25.1-36.5) 01/23/18 08:50 Assessment and Plan - Assessment and Plan (Free Text) Assessment: Pt seen and examined. I have reviewed the note of the back office medical assistant and agree with it. I have discussed the assessment and plan with the resident. I have reviewed the patient's labs and medications. Pt with ESRD on HD. He will get an angiogram on Monday. He is getting IV Abx for his sepsis. Pain is controlled with Percocet. Will D/C Solucortef. He has RENATA. Will continue with PT.
[2018-01-26] MEDS: Budesonide 0.5 mg/2 ml Inhal Susp UD IH SCH ×2 (08:13→21:38)
[2018-01-26] MEDS: Arformoterol 15 mcg/2 ml Inh Sol IH SCH ×2 (08:13→21:38)
[2018-01-26] MEDS: Insulin Regular 1 UNITS/0.01 ML ML SC SCH ×3 (08:42→20:12)
--- NOTE | 2018-01-26 08:46 | PN ---
DATE: 01/25/2018 REASON FOR THE CONSULTATION AND FOLLOWUP: Coronary artery disease, severe peripheral arterial disease, status post right BKA, status post revision of right BKA graft and debridement and history of pacemaker. The patient appears much better, but right little finger pinky, is getting gangrenous. Yesterday, sent some blood work for hypercoagulable state and Heme/Onc evaluation requested for Dr. Morris, Dr. Sahni is covering. In the interim, continue Brilinta. Continue heparin DVT prophylaxis. Continue atorvastatin. Continue metoprolol. Continue aspirin. Overall, the patient is critical. Long-term prognosis is guarded. We will follow with you. Thank you Dr. Potter for providing us the opportunity in taking care of the patient, Jason Berger. Jarred Erickson MD
[2018-01-26] MEDS ORDERED: Collagen Hemostat Powder ONE (10:52)
[2018-01-26] MEDS: Bacitracin 500 Units/gm Oint Foilpak UD TOP SCH ×2 (12:08→20:12)
[2018-01-26] MEDS: Insulin Reg-HIGH-Coverage SC SCH ×4 (12:08→22:00)
[2018-01-26] MEDS: MEROPENEM 500 MG in NS 500 MG/50 ML BAG IVPB SCH ×2 (12:14→22:15)
--- NOTE | 2018-01-26 13:48 | PN ---
DATE: 01/26/2018 SUBJECTIVE: The patient feels a lot better status post debridement of the wound. Right hand finger is getting gangrene. RECOMMENDATIONS: Monitor H and H closely; if it goes below 8, consider packed RBC transfusion. Continue dialysis. Continue Brilinta. Continue aspirin. Continue atorvastatin. Continue metoprolol. Continue amlodipine. Hypercoagulable state, workup is pending. Sent out for followup with Hem/Onc. status is relatively stable. Thank you, Dr. Potter, for providing us the opportunity in taking care of the patient, Ab Gomez. Jarred Erickson MD
--- NOTE | 2018-01-26 15:26 | CP.PCM.PN ---
<Kuldip Nur - Last Filed: 01/26/18 15:24> Subjective - Date & Time of Evaluation Date of Evaluation: 01/26/18 Time of Evaluation: 15:24 - Subjective Subjective: PGY-2 GI progress note for Dr Ahn. No acute events noted overnight. Patient appeared much better today and seemed to be a good mood - he stated he was having soft bowel movements - denied diarrhea. Denied abdominal pain. Denied fevers. Tolerating diet. Patient states he will be getting an angiogram on Monday to take a look at the right arm's vasculature supply. Objective - Vital Signs/Intake and Output Vital Signs (last 24 hours): Temp Pulse Resp BP Pulse Ox 98 F 92 H 16 105/42 L 99 01/26/18 12:00 01/26/18 12:00 01/26/18 12:00 01/26/18 12:00 01/26/18 06:00 Intake and Output: 01/26/18 01/26/18 06:59 18:59 Intake Total 1560 Output Total 0 Balance 1560 - Medications Medications: Current Medications Acetaminophen (Tylenol 325mg Tab) 650 mg PO Q6H PRN PRN Reason: Pain, moderate (4-7) Last Admin: 01/25/18 18:44 Dose: 650 mg Albuterol/Ipratropium (Duoneb 3 Mg/0.5 Mg (3 Ml) Ud) 3 ml IH [id number] PRN PRN Reason: Shortness of Breath Last Admin: 01/22/18 08:18 Dose: 3 ml Amlodipine Besylate (Norvasc) 5 mg PO DAILY [facility] Arformoterol Tartrate (Brovana) 15 mcg IH [id number] [facility] Last Admin: 01/26/18 08:13 Dose: Not Given Aspirin (Ecotrin) 81 mg PO DAILY [facility] Last Admin: 01/26/18 12:10 Dose: 81 mg Atorvastatin Calcium (Lipitor) 80 mg PO HS [facility] Last Admin: 01/25/18 22:40 Dose: 80 mg Bacitracin (Bacitracin) 1 ea TOP BID [facility] Last Admin: 01/26/18 12:08 Dose: 1 ea Budesonide (Pulmicort Respules) 0.5 mg IH Q12H [facility] Last Admin: 01/26/18 08:13 Dose: Not Given Collagenase (Santyl) 1 gm TOP DAILY [facility] Last Admin: 01/25/18 11:29 Dose: 1 applic Duloxetine HCl (Cymbalta) 40 mg PO DAILY [facility] Last Admin: 01/26/18 12:10 Dose: 40 mg Famotidine (Pepcid) 20 mg PO HS [facility] Last Admin: 01/25/18 22:40 Dose: 20 mg Fenofibrate (Tricor) 145 mg PO DAILY [facility] Last Admin: 01/25/18 11:28 Dose: 145 mg Fluticasone Propionate (Flonase) 1 actuation NS DAILY PRN PRN Reason: Nasal congestion Guaifenesin (Mucinex La) 600 mg PO BID PRN PRN Reason: Cough Heparin Sodium (Porcine) (Heparin) 5,000 units SC Q12 [facility]; Protocol Last Admin: 01/25/18 22:39 Dose: Not Given Meropenem/Sodium Chloride (Merrem Iv 500 Mg/Ns 50 Ml) 500 mg in 50 mls @ 100 mls/hr IVPB Q12 [facility]; Protocol Last Admin: 01/26/18 12:14 Dose: 100 mls/hr Insulin Detemir (Levemir) 10 unit SC [facility] Last Admin: 01/25/18 22:00 Dose: Not Given Insulin Human Regular (Humulin R) 10 units SC AC [facility] Last Admin: 01/26/18 08:42 Dose: Not Given Insulin Human Regular (Humulin R High) 0 units SC [facility]; Protocol Last Admin: 01/26/18 12:08 Dose: 2 units Latanoprost (Xalatan Opht) 0 ml OU HS [facility] Last Admin: 01/25/18 22:41 Dose: 2.5 ml Levothyroxine Sodium (Synthroid) 50 mcg PO 0600 [facility] Last Admin: 01/26/18 05:48 Dose: 50 mcg Metoprolol Tartrate (Lopressor) 25 mg PO BID [facility] Last Admin: 01/25/18 18:39 Dose: Not Given Oxycodone HCl (Oxycodone Immediate Release Tab) 5 mg PO Q6H PRN PRN Reason: Pain, moderate (4-7) Last Admin: 01/26/18 04:17 Dose: 5 mg Sodium Chloride ([place] Nasal Lamar) 0 ml NS Q2 PRN PRN Reason: nasal congestion. Ticagrelor (Brilinta) 90 mg PO BID [facility] Last Admin: 01/26/18 12:09 Dose: 90 mg Zaleplon (Sonata) 5 mg PO HS [facility] Last Admin: 01/25/18 22:40 Dose: 5 mg - Labs Labs: 01/25/18 09:00 01/25/18 09:00 PT 20.6 SECONDS (9.4-12.5) H 01/23/18 08:50 INR 1.77 01/23/18 08:50 APTT 33.8 Seconds (25.1-36.5) 01/23/18 08:50 - Additional Findings Additional findings: - Constitutional Appears: Non-toxic, No Acute Distress, Older Than Stated Age, Chronically Ill - Head Exam Head Exam: ATRAUMATIC, NORMOCEPHALIC - Eye Exam Eye Exam: EOMI, Normal appearance, PERRL - ENT Exam ENT Exam: Mucous Membranes Moist - Respiratory Exam Respiratory Exam: Clear to Auscultation Bilateral, NORMAL BREATHING PATTERN. absent: Rales, Rhonchi, Wheezes - Cardiovascular Exam Cardiovascular Exam: REGULAR RHYTHM, +S1, +S2. absent: Gallop, Rubs, Systolic Murmur - GI/Abdominal Exam GI & Abdominal Exam: Normal Bowel Sounds, Soft. absent: Distended, Firm, Guarding, Rebound, Rigid, Tenderness - Extremities Exam Extremities exam: Positive for: full ROM Additional comments: S/p R BKA, dressing site c/d/i; wound vac in place - Neurological Exam Neurological exam: Alert, CN II-XII Intact, Oriented x3 - Psychiatric Exam Psychiatric exam: Normal Affect, Normal Mood - Skin Skin Exam: Dry, Intact, Warm Assessment and Plan - Assessment and Plan (Free Text) Plan: 52 y/o Male w/ PMHx of CHF, HTN, BPH, CVA, DM2, anemia, ESRD on HD (T, Th, Sat), Neuropathy and recent R BKA with a PSHx of R BKA, cornea transplant, cholecystectomy presenting to the emergency department complaining of severe diarrhea intermittent for the past 2 weeks, associated with diffuse abdominal pain: Diarrhea, Resolved -currently afebrile, white count increased possibly due to hydrocortisone vs infectious process -cdiff toxin and antigen negative -vre screen negative -CT abd/pelvis po contrast 01/16: * Small left pleural effusion and consolidation at left lung base. Mild ascites. No acute intra-abdominal findings. No evidence of enteritis or colitis -blood cx growing serratia marcescens and right leg wound cx growing klebsiella, serratia and VRE -received po flagyl for 2 days - discontinued by ID as diarrhea had resolved -s/p debridement of right BKA stump now on meropenem 500mg ivp q12h per ID -Recommend caution with steroids in bacteremia, however, patient has been on long-term steroids and complete cessation will cause adrenal insufficiency. Discussed with real estate recruiter. Seen and discussed with Dr Ahn. <Jacquelin Ahn V - Last Filed: 01/26/18 23:42> Objective - Vital Signs/Intake and Output Vital Signs (last 24 hours): Temp Pulse Resp BP Pulse Ox 98 F 92 H 16 105/42 L 99 01/26/18 12:00 01/26/18 12:00 01/26/18 12:00 01/26/18 12:00 01/26/18 06:00 - Medications Medications: Current Medications Acetaminophen (Tylenol 325mg Tab) 650 mg PO Q6H PRN PRN Reason: Pain, moderate (4-7) Last Admin: 01/25/18 18:44 Dose: 650 mg Albuterol/Ipratropium (Duoneb 3 Mg/0.5 Mg (3 Ml) Ud) 3 ml IH [id number] PRN PRN Reason: Shortness of Breath Last Admin: 01/22/18 08:18 Dose: 3 ml Amlodipine Besylate (Norvasc) 5 mg PO DAILY [facility] Last Admin: 01/26/18 10:00 Dose: Not Given Arformoterol Tartrate (Brovana) 15 mcg IH [id number] [facility] Last Admin: 01/26/18 21:38 Dose: Not Given Aspirin (Ecotrin) 81 mg PO DAILY [facility] Last Admin: 01/26/18 12:10 Dose: 81 mg Atorvastatin Calcium (Lipitor) 80 mg PO HS [facility] Last Admin: 01/26/18 22:15 Dose: 80 mg Bacitracin (Bacitracin) 1 ea TOP BID [facility] Last Admin: 01/26/18 20:12 Dose: Not Given Budesonide (Pulmicort Respules) 0.5 mg IH Q12H [facility] Last Admin: 01/26/18 21:38 Dose: Not Given Collagenase (Santyl) 1 gm TOP DAILY [facility] Last Admin: 01/26/18 20:00 Dose: 1 applic Duloxetine HCl (Cymbalta) 40 mg PO DAILY [facility] Last Admin: 01/26/18 12:10 Dose: 40 mg Famotidine (Pepcid) 20 mg PO HS [facility] Last Admin: 01/26/18 22:15 Dose: 20 mg Fenofibrate (Tricor) 145 mg PO DAILY [facility] Last Admin: 01/26/18 20:08 Dose: Not Given Fluticasone Propionate (Flonase) 1 actuation NS DAILY PRN PRN Reason: Nasal congestion Guaifenesin (Mucinex La) 600 mg PO BID PRN PRN Reason: Cough Heparin Sodium (Porcine) (Heparin) 5,000 units SC Q12 [facility]; Protocol Last Admin: 01/26/18 15:40 Dose: Not Given Meropenem/Sodium Chloride (Merrem Iv 500 Mg/Ns 50 Ml) 500 mg in 50 mls @ 100 mls/hr IVPB Q12 [facility]; Protocol Last Admin: 01/26/18 22:15 Dose: 100 mls/hr Insulin Detemir (Levemir) 10 unit SC HS [facility] Last Admin: 01/25/18 22:00 Dose: Not Given Insulin Human Regular (Humulin R) 10 units SC AC [facility] Last Admin: 01/26/18 20:12 Dose: Not Given Insulin Human Regular (Humulin R High) 0 units SC ACHS [facility]; Protocol Last Admin: 01/26/18 16:30 Dose: Not Given Latanoprost (Xalatan Opht) 0 ml OU HS [facility] Last Admin: 01/25/18 22:41 Dose: 2.5 ml Levothyroxine Sodium (Synthroid) 50 mcg PO 0600 [facility] Last Admin: 01/26/18 05:48 Dose: 50 mcg Metoprolol Tartrate (Lopressor) 25 mg PO BID [facility] Last Admin: 01/26/18 20:13 Dose: Not Given Sodium Chloride ([place] Nasal Lamar) 0 ml NS Q2 PRN PRN Reason: nasal congestion. Ticagrelor (Brilinta) 90 mg PO BID [facility] Last Admin: 01/26/18 20:12 Dose: Not Given Zaleplon (Sonata) 5 mg PO HS [facility] Last Admin: 01/26/18 22:15 Dose: 5 mg - Labs Labs: 01/25/18 09:00 01/25/18 09:00 PT 20.6 SECONDS (9.4-12.5) H 01/23/18 08:50 INR 1.77 01/23/18 08:50 APTT 33.8 Seconds (25.1-36.5) 01/23/18 08:50 Attending/Attestation - Attestation I have personally seen and examined this patient.: Yes I have fully participated in the care of the patient.: Yes I have reviewed all pertinent clinical information, including history, physical exam and plan: Yes Notes (Text): This is an addendum to GI followup report dictated by the Fence Maker. The patient was seen and evaluated earlier. Medical records, lab studies, imagings were reviewed. Last 24 hours events reviewed. Agreed with the above treatment plan as outlined in Fence Maker 's notes with the addition of the following 01/26/18 23:41
--- NOTE | 2018-01-26 18:17 | CP.PCM.PCO ---
Physician Communication Note - Physician Communication Note Physician Communication Note: Wound vac d/c:Rx Thor
[2018-01-26] MEDS: Collagenase 250 Units/gm Ointment(30 gm) TOP SCH (20:00)
[2018-01-26] MEDS: Insulin Detemir 100 units/ml Vial (Levemir) SC SCH (22:00)
--- NOTE | 2018-01-26 22:24 | PN ---
DATE: 01/26/2018 PULMONARY PROGRESS NOTE REFERRING PHYSICIAN: Gallo Potter MD SUBJECTIVE: He is seen and examined in dialysis bed. Night was unremarkable. Pain is manageable today, has ischemic right fifth digit of the hand. No chest pain. No nausea. No vomiting. No diarrhea. OBJECTIVE: GENERAL: No acute distress. VITAL SIGNS: Temperature is 98, heart rate is 92, respiratory rate is , blood pressure is 105/42, and pulse ox 99% nasal cannula. HEENT: Moist mucous membranes. Crowded airway. Mallampati score is 4. NECK: Short thick neck. LUNGS: Has a fair airflow with few rhonchi. HEART: S1 and S2. ABDOMEN: Soft and nontender. No organomegaly. EXTREMITIES: Has a right BKA incision. Wound is covered with wound VAC, has ischemia of the both hands and bleeding on the previously amputated finger also, has fifth digit ischemia of gangrene formation. NEUROLOGIC: Awake, alert and follows simple commands. MEDICATIONS: He is on bacitracin ointment to affected area twice a day, Brilinta 90 mg twice day, Brovana inhaled twice a day, Cymbalta 40 mg daily, DuoNeb every 6 hours p.r.n., Ecotrin 81 mg daily, Flonase 1 spray each nostril daily, heparin 5000 units subcutaneously every 12 hours, insulin coverage, Levemir 10 units subcutaneously at bedtime, Lipitor 80 mg daily, metoprolol tartrate 25 mg twice a day, Levemir 10 units subcutaneously daily, meropenem 500 mg every 12 hours, Norvasc 5 mg daily, oxycodone immediate release 5 mg every 6 hours p.r.n., Pepcid 20 mg at bedtime, Pulmicort inhaled twice a day, Santyl affected area, Sonata 5 mg at bedtime, Synthroid 50 mcg daily, TriCor 145 daily, and Tylenol p.r.n. basis. LABORATORY DATA: Shows hemoglobin 8.5, hematocrit 27.3, WBC 11, platelet count is 82,000. Reticulocyte count is 2.9. Blood sugar 155. Microbiology; wound culture has Serratia marcescens. IMPRESSION AND PLAN: Status post septic shock; renal failure, dialysis dependent; chronic obstructive lung disease; coronary artery disease; cardiac arrhythmia, requiring pacemaker; hypoventilation syndrome; sleep apnea syndrome; cardiac diastolic dysfunction; osteoporosis; peripheral vascular disease, status post right below-knee amputation, left hand also one of the finger amputated secondary to ischemia and gangrene formation, presently have gangrene of the right hand fifth digit. Pulmonary point of view; encourage continuous positive airway pressure use, keep head at 45 degrees, Norvasc added to hope to do some vasodilatation, keep hand warm, urged him to use continuous positive airway pressure, gastric prophylaxis and deep venous thrombosis prophylaxis. The patient also was seen by surgical team for wound care. Thank you and we will follow with you. Jarred Escalera MD
[2018-01-27] MEDS: Latanoprost 2.5 ml Opht Soln OU SCH (02:21)
[2018-01-27] MEDS: Levothyroxine 25 MCG TAB PO SCH (05:53)
--- NOTE | 2018-01-27 08:42 | CP.PCM.PN ---
Subjective - Date & Time of Evaluation Date of Evaluation: 01/27/18 Time of Evaluation: 08:39 - Subjective Subjective: General Surgery Progress Note for Dr. Urrutia 52M seen and evaluated at bedside this morning. Changed saturated dressings. No complaints this morning. Tolerating diet. Denies f/c, n/v/d, SOB, CP, or urinary symptoms. Objective - Vital Signs/Intake and Output Vital Signs (last 24 hours): Temp Pulse Resp BP Pulse Ox 98.1 F 102 H 20 85/50 L 96 01/27/18 06:00 01/27/18 06:00 01/27/18 06:00 01/27/18 06:00 01/27/18 06:00 Intake and Output: 01/27/18 01/27/18 06:59 18:59 Intake Total 240 Balance 240 - Medications Medications: Current Medications Acetaminophen (Tylenol 325mg Tab) 650 mg PO Q6H PRN PRN Reason: Pain, moderate (4-7) Last Admin: 01/25/18 18:44 Dose: 650 mg Albuterol/Ipratropium (Duoneb 3 Mg/0.5 Mg (3 Ml) Ud) 3 ml IH [id number] PRN PRN Reason: Shortness of Breath Last Admin: 01/22/18 08:18 Dose: 3 ml Amlodipine Besylate (Norvasc) 5 mg PO DAILY [facility] Last Admin: 01/26/18 10:00 Dose: Not Given Arformoterol Tartrate (Brovana) 15 mcg IH [id number] [facility] Last Admin: 01/26/18 21:38 Dose: Not Given Aspirin (Ecotrin) 81 mg PO DAILY [facility] Last Admin: 01/26/18 12:10 Dose: 81 mg Atorvastatin Calcium (Lipitor) 80 mg PO HS [facility] Last Admin: 01/26/18 22:15 Dose: 80 mg Bacitracin (Bacitracin) 1 ea TOP BID [facility] Last Admin: 01/26/18 20:12 Dose: Not Given Budesonide (Pulmicort Respules) 0.5 mg IH Q12H [facility] Last Admin: 01/26/18 21:38 Dose: Not Given Collagenase (Santyl) 1 gm TOP DAILY [facility] Last Admin: 01/26/18 20:00 Dose: 1 applic Duloxetine HCl (Cymbalta) 40 mg PO DAILY [facility] Last Admin: 01/26/18 12:10 Dose: 40 mg Famotidine (Pepcid) 20 mg PO HS [facility] Last Admin: 01/26/18 22:15 Dose: 20 mg Fenofibrate (Tricor) 145 mg PO DAILY [facility] Last Admin: 01/26/18 20:08 Dose: Not Given Fluticasone Propionate (Flonase) 1 actuation NS DAILY PRN PRN Reason: Nasal congestion Guaifenesin (Mucinex La) 600 mg PO BID PRN PRN Reason: Cough Heparin Sodium (Porcine) (Heparin) 5,000 units SC Q12 [facility]; Protocol Last Admin: 01/26/18 15:40 Dose: Not Given Meropenem/Sodium Chloride (Merrem Iv 500 Mg/Ns 50 Ml) 500 mg in 50 mls @ 100 mls/hr IVPB Q12 [facility]; Protocol Last Admin: 01/26/18 22:15 Dose: 100 mls/hr Insulin Detemir (Levemir) 10 unit SC HS [facility] Last Admin: 01/26/18 22:00 Dose: Not Given Insulin Human Regular (Humulin R) 10 units SC AC [facility] Last Admin: 01/26/18 20:12 Dose: Not Given Insulin Human Regular (Humulin R High) 0 units SC ACHS [facility]; Protocol Last Admin: 01/26/18 22:00 Dose: Not Given Latanoprost (Xalatan Opht) 0 ml OU HS [facility] Last Admin: 01/27/18 02:21 Dose: Not Given Levothyroxine Sodium (Synthroid) 50 mcg PO 0600 [facility] Last Admin: 01/27/18 05:53 Dose: 50 mcg Metoprolol Tartrate (Lopressor) 25 mg PO BID [facility] Last Admin: 01/26/18 20:13 Dose: Not Given Sodium Chloride ([place] Nasal [place]) 0 ml NS Q2 PRN PRN Reason: nasal congestion. Ticagrelor (Brilinta) 90 mg PO BID [facility] Last Admin: 01/26/18 20:12 Dose: Not Given Zaleplon (Sonata) 5 mg PO HS [facility] Last Admin: 01/26/18 22:15 Dose: 5 mg - Labs Labs: 01/25/18 09:00 01/25/18 09:00 PT 20.6 SECONDS (9.4-12.5) H 01/23/18 08:50 INR 1.77 01/23/18 08:50 APTT 33.8 Seconds (25.1-36.5) 01/23/18 08:50 - Constitutional Appears: Well, Non-toxic, No Acute Distress - Head Exam Head Exam: ATRAUMATIC, NORMAL INSPECTION, NORMOCEPHALIC - Eye Exam Eye Exam: EOMI - ENT Exam ENT Exam: Mucous Membranes Moist - Respiratory Exam Respiratory Exam: NORMAL BREATHING PATTERN - Extremities Exam Additional comments: Dressings c/d/i - Neurological Exam Neurological Exam: Alert, Awake - Psychiatric Exam Psychiatric exam: Normal Affect, Normal Mood - Skin Skin Exam: Dry, Intact, Normal Color, Warm Assessment and Plan - Assessment and Plan (Free Text) Assessment: 52M s/p BKA debridement POD4 Plan: Wound vac removed Avitene applied with pressure dressings to achieve hemostasis Will continue to monitor wound Monitor H/H Continue analgesics Further recommendations for Dr. Renan Worthy PGY1
[2018-01-27] MEDS: Insulin Reg-HIGH-Coverage SC SCH ×4 (08:43→22:00)
[2018-01-27] MEDS: Insulin Regular 1 UNITS/0.01 ML ML SC SCH ×3 (08:44→18:44)
--- NOTE | 2018-01-27 08:56 | PN ---
DATE: 01/27/2018 SUBJECTIVE: The patient has no complaints of any chest pain. No shortness of breath. No headaches. PHYSICAL EXAMINATION: VITAL SIGNS: Temperature is 98.1, pulse of 102, blood pressure is 85/50, respirations 20. GENERAL: The patient is lying in bed, flat, comfortable. HEENT: No oral lesion. Anicteric sclerae. Moist mucosa. NECK: No JVD, adenopathy, or thyromegaly. CARDIOVASCULAR: S1 and S2, regular. No murmurs, rubs, or gallops. LUNGS: Clear to auscultation bilaterally. No wheeze, rales, or rhonchi. ABDOMEN: Bowel sounds are positive, soft, nontender and nondistended. EXTREMITIES: No cyanosis, clubbing or edema. LABORATORY DATA: Hemoglobin is 8.5. ASSESSMENT: 1. Sepsis secondary to right leg wound, status post below-knee amputation. 2. Gangrene in the left fifth finger. 3. End-stage renal disease, on hemodialysis Monday, Monday, Monday. 4. Coronary artery disease with stent. 5. Diabetes type 2. 6. Obstructive sleep apnea. 7. Depression. 8. Hypothyroidism. 9. Dyslipidemia. 10. Glaucoma. 11. Thrombocytopenia. PLAN: The patient is currently comfortable. He was not able to get a full dialysis treatment because of his blood pressure. The patient is currently on Brilinta. The patient is oozing from his wound in the right BKA. He is being followed by Surgery. The patient is on Cymbalta for his depression. He is on aspirin for his coronary artery disease. The patient is on heparin. This has been placed on hold because of the bleeding. The patient also has thrombocytopenia. The patient is on insulin for his diabetes. Sugars are well controlled. He is on atorvastatin for his dyslipidemia. He is also on metoprolol for his coronary artery disease. The patient is on Norvasc for his hypertension. He is on Synthroid for hypothyroidism. I will renew his Percocet. Gallo Potter MD
[2018-01-27] MEDS: Budesonide 0.5 mg/2 ml Inhal Susp UD IH SCH ×2 (09:20→21:35)
[2018-01-27] MEDS: Arformoterol 15 mcg/2 ml Inh Sol IH SCH ×2 (09:20→21:35)
[2018-01-27 10:09] LABS: EOS % 0.1 % (1.5-5.0); GRAN # 14.13 (1.4-6.5); GRAN % 91.7 % (50.0-68.0); LYMPH # 0.7 (1.2-3.4); LYMPH % 4.4 % (22.0-35.0); MEAN CELL VOLUME 98.2 fl (80.0-105.0); MEAN CORPUSCULAR HEMOGLOBIN 31.2 pg (25.0-35.0); MEAN CORPUSCULAR HGB CONC 31.8 g/dl (31.0-37.0); MEAN PLATELET VOLUME 11.7 fl (7.0-11.0); MONO # 0.6 (0.1-0.6); MONO % 3.8 % (1.0-6.0); RBC 2.18 10^6/uL (3.5-6.1); WHITE BLOOD COUNT 15.4 10^3/uL (4.5-11.0)
[2018-01-27 10:13] LABS: HEMOGLOBIN 6.8 g/dL (14.0-18.0)
[2018-01-27] MEDS: Oxycodone/Acetaminophen 5/325 mg Tab PO PRN (10:49)
[2018-01-27] MEDS: MEROPENEM 500 MG in NS 500 MG/50 ML BAG IVPB SCH ×2 (10:52→22:30)
[2018-01-27] MEDS: Bacitracin 500 Units/gm Oint Foilpak UD TOP SCH ×2 (10:54→19:16)
--- NOTE | 2018-01-27 11:50 | CP.PCM.PN ---
Subjective - Date & Time of Evaluation Date of Evaluation: 01/27/18 Time of Evaluation: 10:10 - Subjective Subjective: No new complaints, no fevers, no nausea, no increased pain in the leg stump. Objective - Vital Signs/Intake and Output Vital Signs (last 24 hours): Temp Pulse Resp BP Pulse Ox 97.8 F 83 19 148/71 99 01/26/18 06:00 01/26/18 06:00 01/26/18 06:00 01/26/18 06:00 01/26/18 06:00 Intake and Output: 01/26/18 01/26/18 06:59 18:59 Intake Total 1560 Output Total 0 Balance 1560 - Medications Medications: Current Medications Acetaminophen (Tylenol 325mg Tab) 650 mg PO Q6H PRN PRN Reason: Pain, moderate (4-7) Last Admin: 01/25/18 18:44 Dose: 650 mg Albuterol/Ipratropium (Duoneb 3 Mg/0.5 Mg (3 Ml) Ud) 3 ml IH [id number] PRN PRN Reason: Shortness of Breath Last Admin: 01/22/18 08:18 Dose: 3 ml Amlodipine Besylate (Norvasc) 5 mg PO DAILY [facility] Arformoterol Tartrate (Brovana) 15 mcg IH [id number] [facility] Last Admin: 01/26/18 08:13 Dose: Not Given Aspirin (Ecotrin) 81 mg PO DAILY [facility] Last Admin: 01/25/18 11:28 Dose: 81 mg Atorvastatin Calcium (Lipitor) 80 mg PO HS [facility] Last Admin: 01/25/18 22:40 Dose: 80 mg Bacitracin (Bacitracin) 1 ea TOP BID [facility] Last Admin: 01/25/18 18:33 Dose: 1 ea Budesonide (Pulmicort Respules) 0.5 mg IH Q12H [facility] Last Admin: 01/26/18 08:13 Dose: Not Given Collagenase (Santyl) 1 gm TOP DAILY [facility] Last Admin: 01/25/18 11:29 Dose: 1 applic Duloxetine HCl (Cymbalta) 40 mg PO DAILY [facility] Last Admin: 01/25/18 11:28 Dose: 40 mg Famotidine (Pepcid) [address] [facility] Last Admin: 01/25/18 22:40 Dose: 20 mg Fenofibrate (Tricor) 145 mg PO DAILY [facility] Last Admin: 01/25/18 11:28 Dose: 145 mg Fluticasone Propionate (Flonase) 1 actuation NS DAILY PRN PRN Reason: Nasal congestion Guaifenesin (Mucinex La) 600 mg PO BID PRN PRN Reason: Cough Heparin Sodium (Porcine) (Heparin) 5,000 units SC Q12 [facility]; Protocol Last Admin: 01/25/18 22:39 Dose: Not Given Meropenem/Sodium Chloride (Merrem Iv 500 Mg/Ns 50 Ml) 500 mg in 50 mls @ 100 mls/hr IVPB Q12 [facility]; Protocol Last Admin: 01/25/18 22:40 Dose: 100 mls/hr Insulin Detemir (Levemir) 10 unit SC HS [facility] Last Admin: 01/25/18 22:00 Dose: Not Given Insulin Human Regular (Humulin R) 10 units SC AC [facility] Last Admin: 01/26/18 08:42 Dose: Not Given Insulin Human Regular (Humulin R High) 0 units SC ACHS [facility]; Protocol Last Admin: 01/25/18 22:00 Dose: Not Given Latanoprost (Xalatan Opht) [address] [facility] Last Admin: 01/25/18 22:41 Dose: 2.5 ml Levothyroxine Sodium (Synthroid) 50 mcg PO 0600 [facility] Last Admin: 01/26/18 05:48 Dose: 50 mcg Metoprolol Tartrate (Lopressor) 25 mg PO BID [facility] Last Admin: 01/25/18 18:39 Dose: Not Given Oxycodone HCl (Oxycodone Immediate Release Tab) 5 mg PO Q6H PRN PRN Reason: Pain, moderate (4-7) Last Admin: 01/26/18 04:17 Dose: 5 mg Sodium Chloride ([place] Nasal [place]) 0 ml NS Q2 PRN PRN Reason: nasal congestion. Ticagrelor (Brilinta) 90 mg PO BID [facility] Last Admin: 01/25/18 18:42 Dose: 90 mg Zaleplon (Sonata) 5 mg PO HS [facility] Last Admin: 01/25/18 22:40 Dose: 5 mg - Labs Labs: 01/25/18 09:00 01/25/18 09:00 PT 20.6 SECONDS (9.4-12.5) H 01/23/18 08:50 INR 1.77 11/06/18 08:50 APTT 33.8 Seconds (25.1-36.5) 01/23/18 08:50 - Constitutional Appears: Chronically Ill - Head Exam Head Exam: NORMAL INSPECTION - Neck Exam Neck Exam: absent: Meningismus - Respiratory Exam Respiratory Exam: Decreased Breath Sounds - Cardiovascular Exam Cardiovascular Exam: +S1, +S2 - GI/Abdominal Exam GI & Abdominal Exam: Soft. 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 diff. associated diarrhea ESRD on HD DM obesity CAD S/P PCI retinopathy history of pancreatitis Plan continue Merrem day 10 of 10-14 days and will continue to monitor clinically
[2018-01-27 11:55] LABS: MEAN CELL VOLUME 98.6 fl (80.0-105.0); MEAN CORPUSCULAR HEMOGLOBIN 31.2 pg (25.0-35.0); MEAN CORPUSCULAR HGB CONC 31.7 g/dl (31.0-37.0); MEAN PLATELET VOLUME 11.8 fl (7.0-11.0); RBC 2.21 10^6/uL (3.5-6.1); WHITE BLOOD COUNT 15.9 10^3/uL (4.5-11.0)
[2018-01-27 11:59] LABS: HEMOGLOBIN 6.9 g/dL (14.0-18.0)
--- NOTE | 2018-01-27 12:28 | CP.PCM.PN ---
Subjective - Date & Time of Evaluation Date of Evaluation: 01/27/18 Time of Evaluation: 10:00 - Subjective Subjective: Patient seen and examined this morning. Right stump dressing changed, saturated with sanguinous fluid. Slow ooze noted from stump site. Pressure dressing reapplied Objective - Vital Signs/Intake and Output Vital Signs (last 24 hours): Temp Pulse Resp BP Pulse Ox 98.1 F 102 H 20 85/50 L 96 01/27/18 06:00 01/27/18 06:00 01/27/18 06:00 01/27/18 06:00 01/27/18 06:00 Intake and Output: 01/27/18 01/27/18 06:59 18:59 Intake Total 240 Balance 240 - Medications Medications: Current Medications Acetaminophen (Tylenol 325mg Tab) 650 mg PO Q6H PRN PRN Reason: Pain, moderate (4-7) Last Admin: 01/25/18 18:44 Dose: 650 mg Albuterol/Ipratropium (Duoneb 3 Mg/0.5 Mg (3 Ml) Ud) 3 ml IH [id number] PRN PRN Reason: Shortness of Breath Last Admin: 01/22/18 08:18 Dose: 3 ml Amlodipine Besylate (Norvasc) 5 mg PO DAILY [facility] Last Admin: 01/26/18 10:00 Dose: Not Given Arformoterol Tartrate (Brovana) 15 mcg IH [id number] [facility] Last Admin: 01/26/18 21:38 Dose: Not Given Aspirin (Ecotrin) 81 mg PO DAILY [facility] Last Admin: 01/27/18 10:51 Dose: 81 mg Atorvastatin Calcium (Lipitor) 80 mg PO HS [facility] Last Admin: 01/26/18 22:15 Dose: 80 mg Bacitracin (Bacitracin) 1 ea TOP BID [facility] Last Admin: 01/27/18 10:54 Dose: 1 ea Budesonide (Pulmicort Respules) 0.5 mg IH Q12H [facility] Last Admin: 01/26/18 21:38 Dose: Not Given Collagenase (Santyl) 1 gm TOP DAILY [facility] Last Admin: 01/26/18 20:00 Dose: 1 applic Duloxetine HCl (Cymbalta) 40 mg PO DAILY [facility] Last Admin: 01/27/18 10:50 Dose: 40 mg Famotidine (Pepcid) 20 mg PO HS [facility] Last Admin: 01/26/18 22:15 Dose: 20 mg Fenofibrate (Tricor) 145 mg PO DAILY [facility] Last Admin: 01/27/18 10:49 Dose: 145 mg Fluticasone Propionate (Flonase) 1 actuation NS DAILY PRN PRN Reason: Nasal congestion Guaifenesin (Mucinex La) 600 mg PO BID PRN PRN Reason: Cough Heparin Sodium (Porcine) (Heparin) 5,000 units SC Q12 [facility]; Protocol Last Admin: 01/26/18 15:40 Dose: Not Given Meropenem/Sodium Chloride (Merrem Iv 500 Mg/Ns 50 Ml) 500 mg in 50 mls @ 100 mls/hr IVPB Q12 [facility]; Protocol Last Admin: 01/27/18 10:52 Dose: 100 mls/hr Insulin Detemir (Levemir) 10 unit SC [facility] Last Admin: 01/26/18 22:00 Dose: Not Given Insulin Human Regular (Humulin R) 10 units SC AC [facility] Last Admin: 01/27/18 08:44 Dose: Not Given Insulin Human Regular (Humulin R High) 0 units SC ACHS [facility]; Protocol Last Admin: 01/27/18 08:43 Dose: Not Given Latanoprost (Xalatan Opht) 0 ml OU [facility] Last Admin: 01/27/18 02:21 Dose: Not Given Levothyroxine Sodium (Synthroid) 50 mcg PO 0600 [facility] Last Admin: 01/27/18 05:53 Dose: 50 mcg Metoprolol Tartrate (Lopressor) 25 mg PO BID [facility] Last Admin: 01/27/18 10:44 Dose: Not Given Oxycodone/Acetaminophen (Percocet 5/325 Mg Tab) 1 tab PO Q4H PRN PRN Reason: Pain, moderate (4-7) Stop: 01/30/18 08:41 Last Admin: 01/27/18 10:49 Dose: 1 tab Sodium Chloride ([place] Nasal [place]) 0 ml NS Q2 PRN PRN Reason: nasal congestion. Ticagrelor (Brilinta) 90 mg PO BID [facility] Last Admin: 01/27/18 10:50 Dose: 90 mg Zaleplon (Sonata) 5 mg PO [facility] Last Admin: 01/26/18 22:15 Dose: 5 mg - Labs Labs: 01/27/18 11:45 11/08/18 09:00 PT 20.6 SECONDS (9.4-12.5) H 01/23/18 08:50 INR 1.77 01/23/18 08:50 APTT 33.8 Seconds (25.1-36.5) 01/23/18 08:50 - Constitutional Appears: No Acute Distress - Head Exam Head Exam: NORMOCEPHALIC - Eye Exam Eye Exam: EOMI, Normal appearance - ENT Exam ENT Exam: Mucous Membranes Moist - Respiratory Exam Respiratory Exam: NORMAL BREATHING PATTERN - Cardiovascular Exam Cardiovascular Exam: +S1, +S2 - GI/Abdominal Exam GI & Abdominal Exam: Soft - Neurological Exam Neurological Exam: Alert, Awake - Psychiatric Exam Psychiatric exam: Normal Mood - Skin Skin Exam: Warm Assessment and Plan - Assessment and Plan (Free Text) Assessment: 52M s/p BKA debridement POD5 Plan: H/H dropped to 6.8 Recommend blood transfusion x2 Recommend considering hold Brillinta Consider platelet transfusion if bleeding does not cease Will continue to monitor wound Monitor H/H Continue analgesics Further recommendations for Dr. Renan Muñoz PGY3
[2018-01-27] MEDS: Albuterol-Ipratrop 3 mg / 0.5 (3 ml) UD IH PRN (13:07)
[2018-01-27] MEDS: Collagenase 250 Units/gm Ointment(30 gm) TOP SCH (14:11)
[2018-01-27] MEDS ORDERED: Sodium Chloride 0.9% 250 ML IV STA (16:54)
--- NOTE | 2018-01-27 18:23 | CP.PCM.CON ---
<Arnie Barr - Last Filed: 01/27/18 20:23> History of Present Illness - History of Present Illness History of Present Illness: CRITICAL CARE CONSULT NOTE FOR DR. LUCÍA Barr PGY-1 52 y/o M with PMHx ESRD on HD TTS, PAD, IDDM, CHF, COPD, CAD s/p stents, pac emaker POD5 s/p debridement of necrotic R BKA stump. He is currently on brilinta for CT 4 months ago. He had initially presented to ED with complaints of diarrhea for about 2 weeks. He was subsequently found to have bacteremia with serratia marcecens. Source of sepsis was found to be from infected R BKA. He underwent debridement of necrotic BKA R stump with application of wound vac. Since the procedure, there has been oozing from the surgical site, and his hemoglobin and platelets have continued to drop. Rapid response was called after patient was found lethargic and hypotensive with a BP of 76/37. He had a Hg of 6.8 today and was receiving 1 unit PRBC at time of DELI DEPARTMENT MANAGER. Patient is also on bril inta and aspirin for cardiac stents with the last dose given this morning. At time of examination, BP continue to be low with systolic BP in the 80s, HR of 74, O2 sat of 96% on 4L NC and RR of 16. Patient was alert to place and person but not time. He appeared confused and lethargic. He was given a 250cc bolus of NS and continued to be hypotensive. Additional fluids were not given due to patient's history of ESRD. He was transferred to ICU, L femoral triple lumen catheter and L femoral arterial line were placed. He was started on levophed drip, and given a 1L bolus of fluids. He reports continued pain in the L bka, but denied other 12 point ROS. PMhx: ESRD on HD TTS, PAD, IDDM, CHF, COPD, CAD s/p stents, pacemaker PSurgHx: s/p R BKA, L AV fistula, cholecystectomy, R BKA in Oct 2017, L cornea transplant, pacemaker placement Home meds: Reviewed as per MAY Allergies: insulin (aspart and regular), PCN, moxifloxacin Soc Hx: denies EtOH, tobacco, or drug use Fam Hx: Mom - ERSD, end-stage coronary disease Review of Systems - Review of Systems Review of Systems: per HPI Past Patient History - Infectious Disease Hx of Infectious Diseases: None - Tetanus Immunizations Tetanus Immunization: Up to Date - Past Medical History & Family History Past Medical History?: Yes - Past Social History Smoking Status: Never Smoked - CARDIAC Hx Congestive Heart Failure: Yes Hx Hypertension: Yes - PULMONARY Hx Chronic Obstructive Pulmonary Disease (COPD): Yes - NEUROLOGICAL HX Cerebrovascular Accident: Yes - HEENT Hx HEENT Problems: Yes Hx Blind: No Hx Cataracts: Yes Hx Deafness: No Hx Difficulty Chewing: No - RENAL Hx Renal Failure: Yes (on HD) - ENDOCRINE/METABOLIC Hx Diabetes Mellitus Type 2: Yes - HEMATOLOGICAL/ONCOLOGICAL Hx AIDS: No Hx Anemia: Yes Hx Blood Transfusions: Yes Hx Blood Transfusion Reaction: No - INTEGUMENTARY Hx Dermatological Problems: No - MUSCULOSKELETAL/RHEUMATOLOGICAL Hx Arthritis: Yes - GASTROINTESTINAL Hx Gastrointestinal Disorders: Yes Hx Colostomy: No Hx Liver Failure: Yes Hx Pancreatitis: Yes - GENITOURINARY/GYNECOLOGICAL Hx Genitourinary Disorders: Yes Hx Hematuria: Yes - PSYCHIATRIC Hx Psychophysiologic Disorder: Yes Hx Anxiety: Yes Hx Substance Use: No - SURGICAL HISTORY Hx Amputation: Yes Hx Cardiac Catheterization: Yes Hx Cholecystectomy: Yes Hx Coronary Stent: Yes Hx Musculoskeletal Surgery: Yes - ANESTHESIA Hx Anesthesia: Yes Hx Anesthesia Reactions: No Hx Malignant Hyperthermia: No Meds Allergies/Adverse Reactions: Allergies Allergy/AdvReac Type Severity Reaction Status Date / Time insulin aspart [From Novolog] Allergy Intermediate RASH Verified 01/15/18 23:49 moxifloxacin Allergy Intermediate RASH Verified 01/15/18 23:49 Penicillins Allergy Intermediate RASH Verified 01/15/18 23:49 - Medications Medications: Current Medications Acetaminophen (Tylenol 325mg Tab) 650 mg PO Q6H PRN PRN Reason: Pain, moderate (4-7) Last Admin: 01/25/18 18:44 Dose: 650 mg Albuterol/Ipratropium (Duoneb 3 Mg/0.5 Mg (3 Ml) Ud) 3 ml IH [id number] PRN PRN Reason: Shortness of Breath Last Admin: 01/27/18 13:07 Dose: 3 ml Arformoterol Tartrate (Brovana) 15 mcg IH [id number] [facility] Last Admin: 01/27/18 09:20 Dose: 15 mcg Atorvastatin Calcium (Lipitor) 80 mg PO HS [facility] Last Admin: 01/26/18 22:15 Dose: 80 mg Bacitracin (Bacitracin) 1 ea TOP BID [facility] Last Admin: 01/27/18 10:54 Dose: 1 ea Budesonide (Pulmicort Respules) 0.5 mg IH Q12H [facility] Last Admin: 01/27/18 09:20 Dose: 0.5 mg Collagenase (Santyl) 1 gm TOP DAILY [facility] Last Admin: 01/27/18 14:11 Dose: Not Given Duloxetine HCl (Cymbalta) 40 mg PO DAILY [facility] Last Admin: 01/27/18 10:50 Dose: 40 mg Famotidine (Pepcid) 20 mg PO HS [facility] Last Admin: 01/26/18 22:15 Dose: 20 mg Fenofibrate (Tricor) 145 mg PO DAILY [facility] Last Admin: 01/27/18 10:49 Dose: 145 mg Fluticasone Propionate (Flonase) 1 actuation NS DAILY PRN PRN Reason: Nasal congestion Guaifenesin (Mucinex La) 600 mg PO BID PRN PRN Reason: Cough Heparin Sodium (Porcine) (Heparin) 5,000 units SC Q12 [facility]; Protocol Last Admin: 01/26/18 15:40 Dose: Not Given Meropenem/Sodium Chloride (Merrem Iv 500 Mg/Ns 50 Ml) 500 mg in 50 mls @ 100 mls/hr IVPB Q12 [facility]; Protocol Last Admin: 01/27/18 10:52 Dose: 100 mls/hr Insulin Detemir (Levemir) 10 unit SC HS [facility] Last Admin: 01/26/18 22:00 Dose: Not Given Insulin Human Regular (Humulin R) 10 units SC AC [facility] Last Admin: 01/27/18 12:59 Dose: Not Given Insulin Human Regular (Humulin R High) 0 units SC ACHS [facility]; Protocol Last Admin: 01/27/18 13:08 Dose: 4 units Latanoprost (Xalatan Opht) 0 ml OU HS [facility] Last Admin: 01/27/18 02:21 Dose: Not Given Levothyroxine Sodium (Synthroid) 50 mcg PO 0600 [facility] Last Admin: 01/27/18 05:53 Dose: 50 mcg Metoprolol Tartrate (Lopressor) 25 mg PO BID [facility] Last Admin: 01/27/18 10:44 Dose: Not Given Oxycodone/Acetaminophen (Percocet 5/325 Mg Tab) 1 tab PO Q4H PRN PRN Reason: Pain, moderate (4-7) Stop: 01/30/18 08:41 Last Admin: 01/27/18 10:49 Dose: 1 tab Sodium Chloride (Graball Nasal [place]) 0 ml NS Q2 PRN PRN Reason: nasal congestion. Ticagrelor (Brilinta) 90 mg PO BID [facility] Last Admin: 01/27/18 10:50 Dose: 90 mg Zaleplon (Sonata) 5 mg PO HS [facility] Last Admin: 01/26/18 22:15 Dose: 5 mg Physical Exam - Constitutional Appears: Well, Non-toxic, No Acute Distress - Head Exam Head Exam: ATRAUMATIC, NORMAL INSPECTION - Eye Exam Eye Exam: EOMI, Normal appearance - ENT Exam ENT Exam: Mucous Membranes Moist, Normal Exam - Neck Exam Neck exam: Positive for: Normal Inspection - Respiratory Exam Respiratory Exam: Clear to Auscultation Bilateral, NORMAL BREATHING PATTERN - Cardiovascular Exam Cardiovascular Exam: REGULAR RHYTHM, +S1, +S2 - GI/Abdominal Exam GI & Abdominal Exam: Soft. absent: Tenderness - Extremities Exam Additional comments: R BKA w/ dressing in place L femoral TLC in place L femoral a-line in place - Back Exam Back exam: NORMAL INSPECTION - Neurological Exam Neurological exam: Alert, Oriented x3 - Psychiatric Exam Psychiatric exam: Anxious, Normal Mood - Skin Skin Exam: Dry, Intact, Warm Results - Vital Signs Recent Vital Signs: Last Vital Signs Temp 97.5 F L 01/27/18 17:30 Pulse 74 01/27/18 17:30 Resp 13 01/27/18 17:30 BP 76/40 L 01/27/18 17:30 Pulse Ox 96 01/27/18 06:00 - Labs Result Diagrams: 01/27/18 11:45 01/25/18 09:00 Labs: Laboratory Results - last 24 hr 01/24/18 01/24/18 01/24/18 15:45 15:45 15:45 WBC RBC Hgb Hct MCV MCH MCHC RDW Plt Count MPV Gran % Lymph % (Auto) Addison % (Auto) Eos % (Auto) Baso % (Auto) Gran # Lymph # (Auto) Addison # (Auto) Eos # (Auto) Baso # (Auto) Protein C Antigen 86 Protein C Activity 96 Protein S Activity 66 L Factor V Activity POC Glucose (mg/dL) Blood Type Antibody Screen Crossmatch BBK History Checked 01/24/18 01/26/18 01/27/18 15:45 21:28 09:50 WBC 15.4 H D RBC 2.18 L Hgb 6.8 L* Hct 21.4 L MCV 98.2 MCH 31.2 MCHC 31.8 RDW 19.0 H Plt Count 68 L MPV 11.7 H Gran % 91.7 H Lymph % (Auto) 4.4 L Addison % (Auto) 3.8 Eos % (Auto) 0.1 L Baso % (Auto) 0.0 Gran # 14.13 H Lymph # (Auto) 0.7 L Addison # (Auto) 0.6 Eos # (Auto) 0.0 Baso # (Auto) 0.00 Protein C Antigen Protein C Activity Protein S Activity Factor V Activity 60 L POC Glucose (mg/dL) 126 H Blood Type Antibody Screen Crossmatch BBK History Checked 01/27/18 01/27/18 11:45 11:45 WBC 15.9 H RBC 2.21 L Hgb 6.9 L* Hct 21.8 L MCV 98.6 MCH 31.2 MCHC 31.7 RDW 19.0 H Plt Count 68 L MPV 11.8 H Gran % Lymph % (Auto) Addison % (Auto) Eos % (Auto) Baso % (Auto) Gran # Lymph # (Auto) Addison # (Auto) Eos # (Auto) Baso # (Auto) Protein C Antigen Protein C Activity Protein S Activity Factor V Activity POC Glucose (mg/dL) Blood Type B POSITIVE Antibody Screen Negative Crossmatch See Detail BBK History Checked Patient has bt Assessment & Plan - Assessment and Plan (Free Text) Assessment: 2 y/o M with PMHx ESRD on HD TTS, PAD, IDDM, CHF, COPD, CAD s/p stents, pacemaker POD5 s/p debridement of necrotic R BKA stump admitted to ICU for hypotension 2/2 acute hemorrhage from R BKA. 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 Mcgregor <Maia Mcgregor - Last Filed: 01/29/18 15:06> Meds - Medications Medications: Current Medications Acetaminophen (Tylenol 325mg Tab) 650 mg PO Q6H PRN PRN Reason: Pain, moderate (4-7) Last Admin: 01/25/18 18:44 Dose: 650 mg Albuterol/Ipratropium (Duoneb 3 Mg/0.5 Mg (3 Ml) Ud) 3 ml IH [id number] PRN PRN Reason: Shortness of Breath Last Admin: 01/27/18 13:07 Dose: 3 ml Arformoterol Tartrate (Brovana) 15 mcg IH [id number] [facility] Last Admin: 01/29/18 07:25 Dose: 15 mcg Aspirin (Ecotrin) 81 mg PO DAILY [facility] Atorvastatin Calcium (Lipitor) 80 mg PO HS [facility] Last Admin: 01/28/18 22:32 Dose: Not Given Bacitracin (Bacitracin) 1 ea TOP BID [facility] Last Admin: 01/28/18 17:15 Dose: 1 ea Budesonide (Pulmicort Respules) 0.5 mg IH Q12H [facility] Last Admin: 01/29/18 07:26 Dose: 0.5 mg Collagenase (Santyl) 1 gm TOP DAILY [facility] Last Admin: 01/28/18 12:00 Dose: 1 applic Duloxetine HCl (Cymbalta) 40 mg PO DAILY [facility] Last Admin: 01/28/18 09:29 Dose: 40 mg Famotidine (Pepcid) 20 mg PO HS [facility] Last Admin: 01/28/18 22:32 Dose: Not Given Fenofibrate (Tricor) 145 mg PO DAILY [facility] Last Admin: 01/28/18 09:24 Dose: 145 mg Fluticasone Propionate (Flonase) 1 actuation NS DAILY PRN PRN Reason: Nasal congestion Guaifenesin (Mucinex La) 600 mg PO BID PRN PRN Reason: Cough Heparin Sodium (Porcine) (Heparin) 5,000 units SC Q12 [facility]; Protocol Last Admin: 01/26/18 15:40 Dose: Not Given NOREPINEPHRINE BIT/0.9 % NACL (Levophed 4 Mg/ 250 Ml Ns Premixed) 4 mg in 250 mls @ 15 mls/hr IV .[id number] PRN; Protocol PRN Reason: TITRATE PER MD ORDER Last Admin: 01/29/18 00:05 Dose: 2 mcg/min, 7.5 mls/hr Meropenem/Sodium Chloride (Merrem Iv 500 Mg/Ns 50 Ml) 500 mg in 50 mls @ 100 mls/hr IVPB Q12 [facility]; Protocol Stop: 02/05/18 10:01 Insulin Detemir (Levemir) 10 unit SC HS [facility] Last Admin: 01/28/18 22:33 Dose: Not Given Insulin Human Regular (Humulin R) 10 units SC AC [facility] Last Admin: 01/29/18 13:11 Dose: Not Given Insulin Human Regular (Humulin R High) 0 units SC ACHS [facility]; Protocol Last Admin: 01/29/18 13:11 Dose: Not Given Latanoprost (Xalatan Opht) 0 ml OU HS [facility] Last Admin: 01/27/18 02:21 Dose: Not Given Levothyroxine Sodium (Synthroid) 50 mcg PO 0600 [facility] Last Admin: 01/29/18 06:58 Dose: 50 mcg Metoprolol Tartrate (Lopressor) 25 mg PO BID [facility] Last Admin: 01/28/18 17:12 Dose: Not Given Midodrine (Proamatine) 5 mg PO TID [facility] Last Admin: 01/29/18 10:30 Dose: Not Given Ondansetron HCl (Zofran Inj) 4 mg IVP Q6H PRN PRN Reason: Nausea/Vomiting Last Admin: 01/29/18 11:58 Dose: 4 mg Oxycodone/Acetaminophen (Percocet 5/325 Mg Tab) 1 tab PO Q4H PRN PRN Reason: Pain, moderate (4-7) Stop: 01/30/18 08:41 Last Admin: 01/27/18 10:49 Dose: 1 tab Sodium Chloride (Graball Nasal [place]) 0 ml NS Q2 PRN PRN Reason: nasal congestion. Ticagrelor (Brilinta) 90 mg PO BID [facility] Last Admin: 01/28/18 17:16 Dose: 90 mg Zaleplon (Sonata) 5 mg PO HS [facility] Last Admin: 01/28/18 22:39 Dose: Not Given Results - Vital Signs Recent Vital Signs: Last Vital Signs Temp 98.2 F 01/29/18 12:00 Pulse 83 01/29/18 13:11 Resp 11 L 01/29/18 13:11 BP 119/36 L 01/29/18 13:00 Pulse Ox 100 01/28/18 00:00 - Labs Result Diagrams: 01/29/18 05:30 01/29/18 05:30 Labs: Laboratory Results - last 24 hr 01/24/18 01/27/18 01/27/18 15:45 08:18 11:31 WBC RBC Hgb Hct MCV MCH MCHC RDW Plt Count MPV Gran % Lymph % (Auto) Addison % (Auto) Eos % (Auto) Baso % (Auto) Gran # Lymph # (Auto) Addison # (Auto) Eos # (Auto) Baso # (Auto) Factor V see note pCO2 pO2 HCO3 ABG pH ABG Total CO2 ABG O2 Saturation ABG O2 Content ABG Base Excess ABG Hemoglobin ABG Carboxyhemoglobin POC ABG HHb (Measured) ABG Methemoglobin ABG O2 Capacity Hgb O2 Saturation FiO2 Sodium Potassium Chloride Carbon Dioxide Anion Gap BUN Creatinine Est GFR ( Amer) Est GFR (Non-Af Amer) POC Glucose (mg/dL) 154 H 228 H Random Glucose Calcium Phosphorus Magnesium Total Bilirubin AST ALT Alkaline Phosphatase Troponin I Total Protein Albumin Globulin Albumin/Globulin Ratio 01/27/18 01/27/18 01/27/18 16:28 18:43 22:24 WBC RBC Hgb Hct MCV MCH MCHC RDW Plt Count MPV Gran % Lymph % (Auto) Addison % (Auto) Eos % (Auto) Baso % (Auto) Gran # Lymph # (Auto) Addison # (Auto) Eos # (Auto) Baso # (Auto) Factor V pCO2 pO2 HCO3 ABG pH ABG Total CO2 ABG O2 Saturation ABG O2 Content ABG Base Excess ABG Hemoglobin ABG Carboxyhemoglobin POC ABG HHb (Measured) ABG Methemoglobin ABG O2 Capacity Hgb O2 Saturation FiO2 Sodium Potassium Chloride Carbon Dioxide Anion Gap BUN Creatinine Est GFR ( Amer) Est GFR (Non-Af Amer) POC Glucose (mg/dL) 204 H 188 H 217 H Random Glucose Calcium Phosphorus Magnesium Total Bilirubin AST ALT Alkaline Phosphatase Troponin I Total Protein Albumin Globulin Albumin/Globulin Ratio 01/28/18 01/28/18 01/29/18 21:35 22:05 05:30 WBC 13.8 H RBC 3.07 L Hgb 9.4 L Hct 28.2 L MCV 91.9 MCH 30.6 MCHC 33.3 RDW 18.7 H Plt Count 102 L MPV 11.6 H Gran % 83.2 H Lymph % (Auto) 8.5 L Addison % (Auto) 8.1 H Eos % (Auto) 0.1 L Baso % (Auto) 0.1 Gran # 11.45 H Lymph # (Auto) 1.2 Addison # (Auto) 1.1 H Eos # (Auto) 0.0 Baso # (Auto) 0.01 Factor V pCO2 pO2 HCO3 ABG pH ABG Total CO2 ABG O2 Saturation ABG O2 Content ABG Base Excess ABG Hemoglobin ABG Carboxyhemoglobin POC ABG HHb (Measured) ABG Methemoglobin ABG O2 Capacity Hgb O2 Saturation FiO2 Sodium Potassium Chloride Carbon Dioxide Anion Gap BUN Creatinine Est GFR ( Amer) Est GFR (Non-Af Amer) POC Glucose (mg/dL) < 20 L* 91 Random Glucose Calcium Phosphorus Magnesium Total Bilirubin AST ALT Alkaline Phosphatase Troponin I Total Protein Albumin Globulin Albumin/Globulin Ratio 01/29/18 01/29/18 01/29/18 05:30 05:30 09:00 WBC RBC Hgb Hct MCV MCH MCHC RDW Plt Count MPV Gran % Lymph % (Auto) Addison % (Auto) Eos % (Auto) Baso % (Auto) Gran # Lymph # (Auto) Addison # (Auto) Eos # (Auto) Baso # (Auto) Factor V pCO2 40 pO2 150.0 H HCO3 24.2 ABG pH 7.39 ABG Total CO2 25.4 ABG O2 Saturation 99.1 H ABG O2 Content 12.5 L ABG Base Excess -0.7 ABG Hemoglobin 8.9 L ABG Carboxyhemoglobin 1.8 H POC ABG HHb (Measured) 0.9 ABG Methemoglobin 0.4 ABG O2 Capacity 12.6 L Hgb O2 Saturation 97.0 FiO2 32.0 Sodium 139 Potassium 3.8 Chloride 102 Carbon Dioxide 28 Anion Gap 13 BUN 36 H Creatinine 3.3 H Est GFR ( Amer) 24 Est GFR (Non-Af Amer) 20 POC Glucose (mg/dL) Random Glucose 100 Calcium 8.0 L Phosphorus 5.4 H Magnesium 2.0 Total Bilirubin 1.7 H AST 140 H D ALT 56 Alkaline Phosphatase 179 H Troponin I 0.67 H* D Total Protein 6.1 Albumin 2.4 L Globulin 3.7 Albumin/Globulin Ratio 0.6 L Addendum Addendum: 01/27/18 20:01 ICU Attending Addendum for 01/27/18 Patient seen and examined on 01/27. Case reviewed on round with housestaff. Agree with resident note above with the following additions/exceptions: 52 y/o M with PMHx ESRD on HD TTS, PAD, IDDM, CHF, COPD, CAD s/p stents, pacemaker POD5 s/p debridement of necrotic R BKA stump admitted to ICU for hypotension 2/2 acute hemorrhage from R BKA. Called to bedside on medical floor when BP was too low to obtain. Patient was awake and alert. Emergent central line and a-line place in left groin Hypotension likely from blood loss with possible component of sepsis transfuse 2 units PRBS 2 units plat would hold all anti- plat, patient is at high cardiac risk however risk of multi organ failure and possible at the moment is very high if he continiues to bleed surg notified repeat CBC, he if he continue to bleed will need surg or IR intervention answered all questions with family Rest of care as above Maia Mcgregor MD Pulmonary Critical Care and Sleep Medicine Critical Care Time: 41mins
--- NOTE | 2018-01-27 18:27 | PCM.RRT ---
<Amee Byers - Last Filed: 01/27/18 18:28> ELECTRICAL LOGGING ENGINEER Nurse Assessment - Situation Date: 01/27/18 Time ELECTRICAL LOGGING ENGINEER was called: 16:40 ELECTRICAL LOGGING ENGINEER Responder Arrival Time: 16:42 ELECTRICAL LOGGING ENGINEER Location:: [address] [place] [address] Room Number: 268-2 ELECTRICAL LOGGING ENGINEER Reason for Call: Hypotension, Change in Mental Status ELECTRICAL LOGGING ENGINEER Called By: RN - IV IV Inserted during ELECTRICAL LOGGING ENGINEER?: No IV Fluids Initiated During ELECTRICAL LOGGING ENGINEER?: IV bolus 250NS @ 999 - Respiratory Oxygen Delivery Method: Nasal Cannula @L/min Oxygen Flow Rate: 4 Received Nebulizer Treatments:: No Was the Patient Ventilated with Bag/Mask 100% O2?: No Secretions Suctioned?: No Was the Patient Intubated?: No Was the Patient Placed on a Ventilator?: No - Medication Medications Administered During ELECTRICAL LOGGING ENGINEER: IV bolus 250ml 0.9NS over 30 min - Diagnostic Test Ordered EKG: Yes Chest X-Ray: No CT Scan: No Other Diagnostic Test Ordered: BPs 1657p 76/37, 1700p 131/94, - Stat Labs Ordered ELECTRICAL LOGGING ENGINEER Stat Labs Ordered: CBC, BMP CPR started during ELECTRICAL LOGGING ENGINEER?: No - Vital Signs Vital Sign: Rapid Response Vital Sign Blood Pressure 40/25 Pulse Rate 74 Respiratory Rate 16 Temperature 97.4 F Oxygen Saturation 98 - Finger Stick Blood Glucose Finger Stick Blood Glucose: 164 - Sepsis Screen Part 1 Sepsis Screen Part 1: Hypotensive - Time ELECTRICAL LOGGING ENGINEER Ended Time ELECTRICAL LOGGING ENGINEER Ended: 17:22 - Vital Signs at end of ELECTRICAL LOGGING ENGINEER Vital Signs at end of ELECTRICAL LOGGING ENGINEER: Rapid Response End Vital Sign Blood Pressure 92/56 Respiratory Rate 13 Temperature 97.5 F - Recommendations Notifications: Attending Physician, Family or Designated Caregiver I.Reason for ELECTRICAL LOGGING ENGINEER - A) Acute Change in Patient: Subjective: ELECTRICAL LOGGING ENGINEER was called on Mr. Miramontes after nurse found patient lethargic and hypotensive with a BP of 76/37. Patient is POD 5 of BKA debridement and had a Hg of 6.8 today and was receiving 1 unit PRBC at time of ELECTRICAL LOGGING ENGINEER. Patient is also on brilinta and aspirin for cardiac stents with the last dose given this morning. At time of examination, BP continue to be low with systolic BP in the 80s, HR of 74, O2 sat of 96% on 4L NC and RR of 16. Patient was alert to place and person but not time. He appeared confused and lethargic. He was given a 250cc bolus of NS and continued to be hypotensive. Additional fluids were not given due to patient's history of ESRD. ICU team was called and evaluated patient and determined that he will need pressors. Patient subsequently transferred to ICU for further care. - Respiratory Oxygen Delivery Method: Nasal Cannula @L/min Oxygen Flow Rate: 4 - Constitutional Appears: Confused - Head Head Exam: ATRAUMATIC, NORMAL INSPECTION - Respiratory Exam Respiratory Exam: Clear to Ausculation Bilateral. absent: Accessory Muscle Use, Respiratory Distress - Cardiovascular Exam Cardiovascular Exam: +S1, +S2 - GI/Abdominal Exam GI & Abdominal Exam: Normal Bowel Sounds. absent: Guarding, Rigid - Neurological Exam Neurological Exam: Altered, Awake. absent: Alert - Extremities Exam Extremities Exam: absent: Calf Tenderness Additional comments: right leg dressing in tact, no gross draining/blood/pus appreciated Plan - Assessment of Findings&Treatment Plan -CBC -CMP -EKG -Mg, Phos -Troponin -250cc NS bolus -Transfer to ICU <Kathryn Krause - Last Filed: 01/29/18 16:11> ELECTRICAL LOGGING ENGINEER Nurse Assessment - Vital Signs Vital Sign: Rapid Response Vital Sign Blood Pressure 40/25 Pulse Rate 74 Respiratory Rate 16 Temperature 97.4 F Oxygen Saturation 98 - Vital Signs at end of ELECTRICAL LOGGING ENGINEER Vital Signs at end of ELECTRICAL LOGGING ENGINEER: Rapid Response End Vital Sign Blood Pressure 92/56 Respiratory Rate 13 Temperature 97.5 F Attending/Attestation - Attestation I have personally seen and examined this patient.: Yes I have fully participated in the care of the patient.: Yes I have reviewed all pertinent clinical information, including history, physical exam and plan: Yes Notes (Text): Patient seen and examined by me with resident at 4:42PM with resident 01/27/18. Case including HPI, physical exam, and assessment and plan discussed with resident. Agree with above with following additions/corrections. Rapid response called at 4:40PM for hypotension. Blood pressure was found to be 76/37. Patient was given 250ml bolus with no improvement. Patient was noted to have anemia and was receiving the first unit of PRBCs. Patient was on Brilinta and ASA. Patient had blood noted on dressing on right lower extremity wound. Patient was also noted to have some EKG changes. Patients primary was notified. Cardiology was also notified. Rheumatology Specialist was consulted. Patient was s/p dialysis one day before. Patient with ESRD on HD. Patient was transferred to ICU. Vitals reviewed. Physical exam: General: Awake and lying in bed in no acute distress HEENT: Normocephalic, atraumatic. Extraocular muscles intact, pupils equal and reactive Cardiovascular: Regular rhythm. Normal S1 and S2. Pulmonary: Normal respiratory effort. No rhonchi, rales, or wheezing appreciated. Gastrointestinal: Soft, nondistended. Nontender. Positive bowel sounds all 4 quadrants. No guarding. Musculoskeletal: Right lower extremity wound dressing with blood noted. Right 5th hand digit noted to be black Central nervous system: Awake and alert
--- NOTE | 2018-01-27 18:50 | PCM.PROC ---
Procedures Attestation:: I certify that I have explained the specified Operation(s) or Procedure(s), risks, benefits and reasonable alternatives to the Patient and/or other person responsible. The opportunity was given to ask questions and all questions answered - Central Line Placement Left Femoral Triple Lumen Catheter Aseptic technique was employed throughout the procedure: Hand Hygiene done prior to procedure, Full sterile barriers (mask, hair cover, sterile gown, sterile gloves), Full body sterile drape, Chloraprep Antiseptic: 30 second prep for IJ or SC sites, Chloraprep Antiseptic: 2 minute prep for Femoral Pt. Placed on Pulse Ox Monitor: Yes Central Line Prep: Povidone-Iodine 1% Local Anesthesia Used: Lidocaine 1% Amount of Anesthesia Used (mls): 10 Ultrasound Used for Placement: Yes Central Line Lumen Inserted: triple Central Line Length: 20 cm Post Procedure: Sutured in Place Secured by: Suture Post procedure dressing: Clear vapor permeable, Chlorhexidine disc (Biopatch) Post Procedure X-Ray: No Patient Tolerated Procedure: Well Immediate Complications: None
[2018-01-27] MEDS: NOREPINEPHRINE BIT/0.9 % NACL 4 MG/250 ML BAG IV PRN (19:16)
--- NOTE | 2018-01-27 19:46 | PCM.PROC ---
<Arnie Barr - Last Filed: 01/27/18 19:45> Procedures Attestation:: I certify that I have explained the specified Operation(s) or Procedure(s), risks, benefits and reasonable alternatives to the Patient and/or other person responsible. The opportunity was given to ask questions and all questions answered - Arterial Line Left Femoral Aseptic technique was employed throughout the procedure: Full sterile barriers (mask, hair cover, sterile gown, sterile gloves), Full body sterile drape, Chloraprep Antiseptic: 30 second prep for IJ or SC sites, Chloraprep Antiseptic: 2 minute prep for Femoral Time Out Performed: Yes Pt. placed on Pulse Ox Monitor: Yes Central Line Prep: Povidone-Iodine 1% Local Anesthesia Used: Lidocaine 1% Amount of Anesthesia Used (mls): 10 Ultrasound Used for Placement: Yes Gauge (Size): 20 gauge Technique Used: Direct Puncture Technique Secured by: Suture Post procedure dressing: Clear vapor permeable Patient Tolerated Procedure: well Immediate Complications: none <Maia Mcgregor - Last Filed: 01/29/18 14:58> Addendum Addendum: 01/29/18 14:58 MICU Attending Addleeann See my note for full addendem agree with procedure note above
[2018-01-27] MEDS: Insulin Detemir 100 units/ml Vial (Levemir) SC SCH (22:30)
[2018-01-28 06:12] LABS: ALB/GLOB RATIO 0.6 (1.1-1.8); ALBUMIN 2.4 g/dL (3.0-4.8); CALCIUM 7.9 mg/dL (8.4-10.5)
[2018-01-28 06:13] LABS: BASO # 0.01 K/mm3 (0.0-2.0); BASO % 0.1 % (0.0-3.0); GRAN # 11.89 (1.4-6.5); GRAN % 88.9 % (50.0-68.0); HEMOGLOBIN 9.6 g/dL (14.0-18.0); LYMPH # 0.8 (1.2-3.4); LYMPH % 5.8 % (22.0-35.0); MEAN CELL VOLUME 94.2 fl (80.0-105.0); MEAN CORPUSCULAR HEMOGLOBIN 30.8 pg (25.0-35.0); MEAN CORPUSCULAR HGB CONC 32.7 g/dl (31.0-37.0); MEAN PLATELET VOLUME 10.9 fl (7.0-11.0); MONO # 0.7 (0.1-0.6); MONO % 5.2 % (1.0-6.0); RBC 3.12 10^6/uL (3.5-6.1); RED CELL DISTRIBUTION WIDTH 18.3 % (11.5-14.5); WHITE BLOOD COUNT 13.4 10^3/uL (4.5-11.0)
--- NOTE | 2018-01-28 07:49 | CP.PCM.PN ---
Subjective - Date & Time of Evaluation Date of Evaluation: 01/28/18 Time of Evaluation: 07:45 - Subjective Subjective: General Surgery Dr. Urrutia Pt S&E @bedside. Pt had TOBACCO BLENDER called yesterday for acute AMS while receiving pRBC transfusion. Pt hypotensive and transferred to ICU for management. Pt underwent TLC and A-line placement by ICU team. Pt tolerated procedure well. Pt transfused 2pRBC and 1Plts overnight w/ no other acute events. Pt currently requiring low- dose Levophed to maintain MAP >65. This AM, pt altered though denies pain F/C, CP, SOB. tolerating diet. Objective - Vital Signs/Intake and Output Vital Signs (last 24 hours): Temp Pulse Resp BP Pulse Ox 97.9 F 103 H 12 81/53 L 100 01/28/18 00:56 01/28/18 00:00 01/28/18 00:00 01/27/18 23:00 01/28/18 00:00 Intake and Output: 01/28/18 01/28/18 06:59 18:59 Intake Total 10 Balance 10 - Medications Medications: Current Medications Acetaminophen (Tylenol 325mg Tab) 650 mg PO Q6H PRN PRN Reason: Pain, moderate (4-7) Last Admin: 01/25/18 18:44 Dose: 650 mg Albuterol/Ipratropium (Duoneb 3 Mg/0.5 Mg (3 Ml) Ud) 3 ml IH [id number] PRN PRN Reason: Shortness of Breath Last Admin: 01/27/18 13:07 Dose: 3 ml Arformoterol Tartrate (Brovana) 15 mcg IH [id number] [facility] Last Admin: 01/27/18 21:35 Dose: 15 mcg Atorvastatin Calcium (Lipitor) 80 mg PO HS [facility] Last Admin: 01/27/18 21:43 Dose: Not Given Bacitracin (Bacitracin) 1 ea TOP BID [facility] Last Admin: 01/27/18 19:16 Dose: Not Given Budesonide (Pulmicort Respules) 0.5 mg IH Q12H [facility] Last Admin: 01/27/18 21:35 Dose: 0.5 mg Collagenase (Santyl) 1 gm TOP DAILY [facility] Last Admin: 01/27/18 14:11 Dose: Not Given Duloxetine HCl (Cymbalta) 40 mg PO DAILY [facility] Last Admin: 01/27/18 10:50 Dose: 40 mg Famotidine (Pepcid) 20 mg PO HS [facility] Last Admin: 01/27/18 21:43 Dose: Not Given Fenofibrate (Tricor) 145 mg PO DAILY [facility] Last Admin: 01/27/18 10:49 Dose: 145 mg Fluticasone Propionate (Flonase) 1 actuation NS DAILY PRN PRN Reason: Nasal congestion Guaifenesin (Mucinex La) 600 mg PO BID PRN PRN Reason: Cough Heparin Sodium (Porcine) (Heparin) 5,000 units SC Q12 [facility]; Protocol Last Admin: 01/26/18 15:40 Dose: Not Given Meropenem/Sodium Chloride (Merrem Iv 500 Mg/Ns 50 Ml) 500 mg in 50 mls @ 100 mls/hr IVPB Q12 [facility]; Protocol Last Admin: 01/27/18 22:30 Dose: 100 mls/hr NOREPINEPHRINE BIT/0.9 % NACL (Levophed 4 Mg/ 250 Ml Ns Premixed) 4 mg in 250 mls @ 15 mls/hr IV .[id number] PRN; Protocol PRN Reason: TITRATE PER MD ORDER Last Titration: 01/27/18 21:42 Dose: 2 mcg/min, 7.5 mls/hr Insulin Detemir (Levemir) 10 unit SC HS [facility] Last Admin: 01/27/18 22:30 Dose: Not Given Insulin Human Regular (Humulin R) 10 units SC AC [facility] Last Admin: 01/27/18 18:44 Dose: Not Given Insulin Human Regular (Humulin R High) 0 units SC ACHS [facility]; Protocol Last Admin: 01/27/18 22:00 Dose: Not Given Latanoprost (Xalatan Opht) 0 ml OU HS [facility] Last Admin: 01/27/18 02:21 Dose: Not Given Levothyroxine Sodium (Synthroid) 50 mcg PO 0600 [facility] Last Admin: 01/27/18 05:53 Dose: 50 mcg Metoprolol Tartrate (Lopressor) 25 mg PO BID [facility] Last Admin: 01/27/18 18:47 Dose: Not Given Oxycodone/Acetaminophen (Percocet 5/325 Mg Tab) 1 tab PO Q4H PRN PRN Reason: Pain, moderate (4-7) Stop: 01/30/18 08:41 Last Admin: 01/27/18 10:49 Dose: 1 tab Sodium Chloride ([place] Nasal [place]) 0 ml NS Q2 PRN PRN Reason: nasal congestion. Ticagrelor (Brilinta) 90 mg PO BID [facility] Last Admin: 01/27/18 10:50 Dose: 90 mg Zaleplon (Sonata) 5 mg PO HS [facility] Last Admin: 01/27/18 23:38 Dose: 5 mg - Labs Labs: 01/28/18 05:50 01/28/18 05:50 PT 20.6 SECONDS (9.4-12.5) H 01/23/18 08:50 INR 1.77 01/23/18 08:50 APTT 33.8 Seconds (25.1-36.5) 01/23/18 08:50 - Constitutional Appears: Non-toxic, No Acute Distress, Chronically Ill - Head Exam Head Exam: NORMAL INSPECTION - Eye Exam Eye Exam: Normal appearance - ENT Exam ENT Exam: Mucous Membranes Moist - Respiratory Exam Respiratory Exam: NORMAL BREATHING PATTERN. absent: Accessory Muscle Use, Respiratory Distress - Cardiovascular Exam Cardiovascular Exam: Tachycardia. absent: Bradycardia - GI/Abdominal Exam GI & Abdominal Exam: Soft. absent: Distended, Tenderness - Extremities Exam Additional comments: L AVF palpable thrill R BKA stump w/ pearl wrap pressure dressing in place. c/d/i - Neurological Exam Neurological Exam: Alert, Awake - Psychiatric Exam Psychiatric exam: Normal Affect, Normal Mood - Skin Skin Exam: Dry, Warm Assessment and Plan - Assessment and Plan (Free Text) Assessment: 52 y/o M POD# 5 s/p BKA debridement Plan: - transfuse PRN to maintain Hgb >7.5 - Recommend holding Brillinta 2/2 thrombocytopenia and bleeding - recommend 2nd Plt transfusion if bleeding continues - maintain pressure dressing - Monitor H/H - cont pain management - encourage OOB to chair - PT/OT Further recs per Dr. Renan Salguero DO PGY3
[2018-01-28] MEDS: Arformoterol 15 mcg/2 ml Inh Sol IH SCH (08:06)
[2018-01-28] MEDS: Budesonide 0.5 mg/2 ml Inhal Susp UD IH SCH ×2 (08:06→20:09)
--- NOTE | 2018-01-28 09:12 | PN ---
DATE: 01/28/2018 PLACEMENT DIRECTOR NOTE SUBJECTIVE: The patient is awake and alert, resting comfortably in bed. He continues to require Levophed to support his blood pressure and the debridement area in the right lower extremity continues to have some oozing at times. The patient has no complaints of shortness of breath, cough, wheezing, chest congestion. No chest pain or abdominal pain. No fever, chills, nausea or vomiting. PHYSICAL EXAMINATION VITAL SIGNS: Note that his temperature is 97.9, his pulse is 103, respirations are 16 and his BP is 125/41. SKIN: Warm and dry. HEENT: Head atraumatic, normocephalic. Eyes reactive to light. Ears, nose and throat seem to be within normal limits. NECK: Supple. No JVD. No thyroid enlargement, no lymph nodes. HEART: Has regular rate and rhythm. Normal S1, S2, but mildly tachycardic. LUNGS: Reveal decreased breath sounds at the bases. ABDOMEN: Soft. Decreased bowel sounds. GENITALIA AND RECTAL: Deferred. MUSCULOSKELETAL: No serious deformities. EXTREMITIES: Reveal a right BKA, left hand digit amputation as well as gangrenous digits on the right hand. NEUROLOGIC: He seemed to be grossly intact. LABORATORY DATA: As far as his laboratories, the patient's white count is 13.4, hemoglobin is 9.6 and hematocrit is 29.4 with platelets of 113,000. Sodium is 140, potassium 3.9, chloride 103 with a CO2 of 24, BUN of 35 with a creatinine of 3.3, and the patient has glucose of 250. IMPRESSION: As far as my impression, this patient has sepsis with hypotension secondary to bacteremia. The patient has a right below knee amputation with bleeding from the surgical wound at that area. He has anemia, end-stage renal disease on hemodialysis, peripheral vascular disease as well as diabetes, congestive heart failure, chronic obstructive pulmonary disease, coronary artery disease status post myocardial infarction as well. PLAN: As far as our plan, we will continue to follow Surgery as far as caring for the bleeding stump BKA. We will continue with his DuoNeb, Flonase, Lipitor, Lopressor, Mucinex, Levophed, Pepcid, OxyContin and Synthroid. We will follow closely and continue to treat aggressively along with the other consultants and the primary care doctor. Robby Tate MD [facility] # [id number]
[2018-01-28] MEDS: Insulin Regular 1 UNITS/0.01 ML ML SC SCH ×3 (09:17→16:44)
[2018-01-28] MEDS: Levothyroxine 25 MCG TAB PO SCH (09:18)
[2018-01-28] MEDS: Insulin Reg-HIGH-Coverage SC SCH ×4 (09:18→22:39)
[2018-01-28] MEDS: Bacitracin 500 Units/gm Oint Foilpak UD TOP SCH ×2 (09:19→17:15)
[2018-01-28] MEDS: MEROPENEM 500 MG in NS 500 MG/50 ML BAG IVPB SCH ×2 (09:24→22:38)
--- NOTE | 2018-01-28 10:38 | CARD ---
APPROVED REPORT Date of service: 01/27/2018 EKG Measurement Heart [id number] <Conclusion> Demand pacemaker, interpretation is based on intrinsic rhythm Undetermined rhythm Right bundle branch block Abnormal ECG
[2018-01-28] MEDS: Collagenase 250 Units/gm Ointment(30 gm) TOP SCH ×2 (12:00→12:02)
--- NOTE | 2018-01-28 12:04 | RAD ---
Date of service: 01/27/2018 HISTORY: hypotensive COMPARISON: 01/18/2018. FINDINGS: LUNGS: The right lung is well inflated and clear. There is left retrocardiac airspace disease. PLEURA: No right pleural effusion or pneumothorax. Small left pleural effusion. CARDIOVASCULAR: Persistent severe cardiomegaly. No aortic atherosclerotic calcification present. Stable position of right-sided permanent pacing device with OSSEOUS STRUCTURES: Within normal limits for the patient's age. VISUALIZED UPPER ABDOMEN: Normal. OTHER FINDINGS: None. IMPRESSION: No change in left lower lobe atelectasis/pneumonia and small left pleural effusion. Persistent severe cardiomegaly.
--- NOTE | 2018-01-28 12:07 | RAD ---
Date of service: 01/28/2018 HISTORY: check for fluid overload COMPARISON: 01/27/2018 FINDINGS: Right-sided central venous catheter terminates in the axillary vein. LUNGS: There is pulmonary venous congestion in the right lung. There is interval development of near complete opacification of the left hemithorax. PLEURA: Small left pleural effusion. No large right pleural effusion. No pneumothorax. CARDIOVASCULAR: Severe cardiomegaly. Stable position of right-sided permanent pacing device. No aortic atherosclerotic calcification present. OSSEOUS STRUCTURES: Within normal limits for the patient's age. VISUALIZED UPPER ABDOMEN: Normal. OTHER FINDINGS: None. IMPRESSION: Interval development of left pulmonary edema versus layering pleural effusion. Suspect left lower lobe atelectasis/pneumonia. Persistent severe cardiomegaly.
--- NOTE | 2018-01-28 14:01 | PN ---
DATE: 01/28/[address] Erickson. SUBJECTIVE: The patient did develop bleeding from the right below-knee amputation stump and was transferred to the ICU, required 3 units of packed RBC transfusion, and no recurrence of bleeding. The patient denies any retrosternal chest pain. The patient stated that he underwent a drug-eluting stent in 09/2017. The patient is currently mildly short of breath. My own review of the patient's interventional cardiology record revealed that Dr. Erickson has implanted a dual-chamber pacemaker. MRI received in 06/2017. No report of coronary stent at their hospital. PHYSICAL EXAMINATION: VITAL SIGNS: Blood pressure 124/45, heart rate 97, respirations 11, temperature 97.9. HEENT: Pale conjunctivae. CHEST: Bibasilar coarse crepitations. HEART: S1 and S2 regular. EXTREMITIES: Right below-knee amputation, amputated left middle finger and gangrenous right little finger. LABORATORY DATA: Today's hemoglobin and hematocrit 9.6 and 29.4, white count 15.4, platelet count 115,000. Today's BUN and creatinine 35 and 3.3 respectively. Glucose 250. Chest x-ray today revealed diffuse haziness involving the entire left lung field and cardiomegaly. ASSESSMENT: 1. Bleeding from left below-knee amputation stump requiring 3 units of packed RBC transfusion. 2. Congestive heart failure and volume overload. 3. End-stage renal disease and the patient is anuric. 5. History of recent coronary stent according to the patient in 09/2017. RECOMMENDATIONS: Resume Brilinta 90 mg twice a day. Hold Lopressor for now. Discussed the case with the property management intern for an additional hemodialysis for today. Case was discussed with the medical team in the ICU. Candelario Manriquez MD
--- NOTE | 2018-01-28 17:26 | PN ---
DATE: 01/28/2018 SUBJECTIVE: The patient has no complaints of any chest pain. No shortness of breath. No headaches. No dizziness. PHYSICAL EXAMINATION: VITAL SIGNS: Temperature is 97.8, pulse is 94, blood pressure is 124/45, respirations 13. GENERAL: The patient is lying in bed, flat, comfortable. HEENT: No oral lesion. Anicteric sclerae. Moist mucosa. NECK: No JVD, adenopathy, or thyromegaly. CARDIOVASCULAR: S1 and S2, regular. No murmurs, rubs, or gallops. LUNGS: Clear to auscultation bilaterally. No wheeze, rales, or rhonchi. ABDOMEN: Bowel sounds are positive, soft, nontender and nondistended. EXTREMITIES: no cyanosis, clubbing or edema. LABORATORY DATA: White count is 13.4, hemoglobin 9.6, creatinine 3.3. ASSESSMENT: 1. Hypotension, improved. 2. Sepsis secondary to infection of the wound of right leg, right below-knee amputation, improving. 3. Gangrene of the left finger. 4. Acute anemia secondary to blood loss from right leg wound. 5. Coronary artery disease with stent. 6. End-stage renal disease, on hemodialysis Monday, Monday, and Monday. 7. Diabetes type 2. 8. Obstructive sleep apnea. 9. Depression. 10. Hypothyroidism. 11. Dyslipidemia. 12. Glaucoma. 13. Thrombocytopenia. PLAN: The patient's blood pressure has improved. The patient is continuing on nebulizer treatment. He is on Cymbalta for his depression. The patient is on his Brilinta. He is going to be on meropenem for antibiotics. He is on famotidine. He is on Sonata by Psychiatry. The patient is on TriCor for his dyslipidemia. We will transfer to the med-surgery floor. Gallo Potter MD
--- NOTE | 2018-01-28 20:16 | PN ---
DATE: 01/28/2018 REFERRING PHYSICIAN: Gallo Potter MD SUBJECTIVE: Overnight events noted, requiring 3 units of packed RBC, also requiring platelet transfusion, and Brilinta was placed on hold, also received fluids. This morning, he is a little short of breath, still some confused, new finding. Chest x-ray shows left pleural effusion, may have some infiltrate. He is short of breath and not much cough. No sputum production. No chest pain. Has a dressing on the right BKA wound. No active bleed reported today. OBJECTIVE: GENERAL: [id number] distress secondary to shortness of breath. VITAL SIGNS: He is afebrile, heart rate is 94, respiratory rate is 14, blood pressure is 100/70 on Levophed. HEENT: Moist mucous membranes. Crowded airway. Mallampati score is 4. NECK: Supple. No JVD. LUNGS: Decreased breath at the bases. Has crackles. HEART: S1 and S2. ABDOMEN: Soft, nontender. No organomegaly. EXTREMITIES: Has a right BKA dressing on the wound. Right upper extremity 5th digit has a dry gangrene. NEUROLOGIC: Awake, alert. Some confused. MEDICATIONS: He is on Bacitracin ointment to the affected area twice a day; Brilinta 90 mg twice a day; Brovana inhaled twice a day; Cymbalta 40 mg daily; DuoNeb every 6 hours; Flonase one spray each nostril daily; heparin 5000 units subcu every 12 hours, which is placed on hold; Levemir 10 units subcu h.s.; getting Levophed; Lipitor 80 mg h.s.; metoprolol tartrate 25 mg, which is on hold; meropenem 500 mg every 12 hours; Mucinex 600 mg twice a day; nasal saline 2 sprays each nostril every 12 hours p.r.n.; Pepcid 20 mg h.s.; Percocet 5/325 one tablet every 4 hours p.r.n.; Pulmicort inhaled twice a day; Santyl 1 g topically as scheduled; Sonata 5 mg h.s.; Synthroid 50 mcg daily; TriCor 145 mg daily; Tylenol p.r.n. LABORATORY DATA: Hemoglobin 9.6, hematocrit 29.4, WBC 13.4, platelets 113. Sodium 140, potassium 3.9, chloride 103, bicarbonate 24, BUN 35, creatinine is 3.3, glucose is 250, calcium 7.9, phosphorus is 6.3, magnesium 2.0. Total bili 2.3. AST 179, ALT 65, alk phos is 182. Albumin is 2.4. Microbiology: Wound culture has Serratia. Chest x-ray this morning shows left effusion, has some infiltrate, has a cardiomegaly. IMPRESSION AND PLAN: Hemorrhagic shock; renal failure; had a wound on the right below-knee amputation site requiring wound VAC, ended up getting severe anemia with thrombocytopenia; chronic obstructive lung disease; coronary artery disease; history of cardiac arrhythmia, requiring pacemaker; sleep apnea syndrome; cardiac diastolic dysfunction; osteoporosis; peripheral vascular disease with right below-knee amputation nonhealing incision site requiring wound VAC, which has been removed since yesterday morning; also has a right hand folder digit gangrene. Case discussed with nursing staff. Overnight, he got 3 units of packed RBC, also got platelet with improving platelets and hemoglobin, but presently he is fluid overloaded, going to be going for dialysis. Careful with sedation. Sleep apnea precautions. High risk for thrombosis of the stent. Gastric prophylaxis. Continue pain management. We will get ABG, chest x-ray, CBC, CMP in the morning. Critical care time more than 35 minutes. Thank you and we will follow with you. Jarred Escalera MD
--- NOTE | 2018-01-28 21:24 | CP.PCM.PN ---
Subjective - Date & Time of Evaluation Date of Evaluation: 01/25/18 Time of Evaluation: 18:00 - Subjective Subjective: Has pain at right LE stump, mother at bedside blood noted in wound vac. Objective - Vital Signs/Intake and Output Vital Signs (last 24 hours): Temp Pulse Resp BP Pulse Ox 97.8 F 96 H 13 124/45 L 100 01/28/18 07:00 01/28/18 18:00 01/28/18 11:26 01/28/18 10:00 01/28/18 00:00 Intake and Output: 01/28/18 01/29/18 18:59 06:59 Intake Total 700 Output Total 0 Balance 700 - Medications Medications: Current Medications Acetaminophen (Tylenol 325mg Tab) 650 mg PO Q6H PRN PRN Reason: Pain, moderate (4-7) Last Admin: 01/25/18 18:44 Dose: 650 mg Albuterol/Ipratropium (Duoneb 3 Mg/0.5 Mg (3 Ml) Ud) 3 ml IH [id number] PRN PRN Reason: Shortness of Breath Last Admin: 01/27/18 13:07 Dose: 3 ml Arformoterol Tartrate (Brovana) 15 mcg IH [id number] [facility] Last Admin: 01/28/18 08:06 Dose: 15 mcg Atorvastatin Calcium (Lipitor) 80 mg PO HS [facility] Last Admin: 01/27/18 21:43 Dose: Not Given Bacitracin (Bacitracin) 1 ea TOP BID [facility] Last Admin: 01/28/18 17:15 Dose: 1 ea Budesonide (Pulmicort Respules) 0.5 mg IH Q12H [facility] Last Admin: 01/28/18 20:09 Dose: 0.5 mg Collagenase (Santyl) 1 gm TOP DAILY [facility] Last Admin: 01/28/18 12:00 Dose: 1 applic Duloxetine HCl (Cymbalta) 40 mg PO DAILY [facility] Last Admin: 01/28/18 09:29 Dose: 40 mg Famotidine (Pepcid) 20 mg PO HS [facility] Last Admin: 01/27/18 21:43 Dose: Not Given Fenofibrate (Tricor) 145 mg PO DAILY [facility] Last Admin: 01/28/18 09:24 Dose: 145 mg Fluticasone Propionate (Flonase) 1 actuation NS DAILY PRN PRN Reason: Nasal congestion Guaifenesin (Mucinex La) 600 mg PO BID PRN PRN Reason: Cough Heparin Sodium (Porcine) (Heparin) 5,000 units SC Q12 [facility]; Protocol Last Admin: 01/26/18 15:40 Dose: Not Given Meropenem/Sodium Chloride (Merrem Iv 500 Mg/Ns 50 Ml) 500 mg in 50 mls @ 100 mls/hr IVPB Q12 [facility]; Protocol Last Admin: 01/28/18 09:24 Dose: 100 mls/hr NOREPINEPHRINE BIT/0.9 % NACL (Levophed 4 Mg/ 250 Ml Ns Premixed) 4 mg in 250 mls @ 15 mls/hr IV .[id number] PRN; Protocol PRN Reason: TITRATE PER MD ORDER Last Titration: 01/27/18 21:42 Dose: 2 mcg/min, 7.5 mls/hr Insulin Detemir (Levemir) 10 unit SC HS [facility] Last Admin: 01/27/18 22:30 Dose: Not Given Insulin Human Regular (Humulin R) 10 units SC AC [facility] Last Admin: 01/28/18 16:44 Dose: Not Given Insulin Human Regular (Humulin R High) 0 units SC ACHS [facility]; Protocol Last Admin: 01/28/18 16:45 Dose: Not Given Latanoprost (Xalatan Opht) 0 ml OU HS [facility] Last Admin: 01/27/18 02:21 Dose: Not Given Levothyroxine Sodium (Synthroid) 50 mcg PO 0600 [facility] Last Admin: 01/28/18 09:18 Dose: 50 mcg Metoprolol Tartrate (Lopressor) 25 mg PO BID [facility] Last Admin: 01/28/18 17:12 Dose: Not Given Oxycodone/Acetaminophen (Percocet 5/325 Mg Tab) 1 tab PO Q4H PRN PRN Reason: Pain, moderate (4-7) Stop: 01/30/18 08:41 Last Admin: 01/27/18 10:49 Dose: 1 tab Sodium Chloride ([place] Nasal [place]) 0 ml NS Q2 PRN PRN Reason: nasal congestion. Ticagrelor (Brilinta) 90 mg PO BID [facility] Last Admin: 01/28/18 17:16 Dose: 90 mg Zaleplon (Sonata) 5 mg PO HS [facility] Last Admin: 01/27/18 23:38 Dose: 5 mg - Labs Labs: 01/28/18 05:50 01/28/18 05:50 PT 20.6 SECONDS (9.4-12.5) H 01/23/18 08:50 INR 1.77 01/23/18 08:50 APTT 33.8 Seconds (25.1-36.5) 01/23/18 08:50 - Head Exam Head Exam: ATRAUMATIC - Eye Exam Eye Exam: Normal appearance - ENT Exam ENT Exam: Mucous Membranes Dry - Respiratory Exam Respiratory Exam: NORMAL BREATHING PATTERN - Cardiovascular Exam Cardiovascular Exam: +S1, +S2 - GI/Abdominal Exam GI & Abdominal Exam: Normal Bowel Sounds Assessment and Plan (1) Hypercoagulable state Assessment & Plan: rule out inherited thrombophilia w/u sent on dual antiplatelet therapy Status: Acute (2) Thrombocytopenia Assessment & Plan: mild improved from prior HIV and hepatitis B/C negative antiphospholipid Ab panel negative Status: Acute (3) Anemia Assessment & Plan: anemia of CKD anemia of chronic disease right LE stump bleeding transfusion support PRN Status: Acute (4) Leukocytosis Assessment & Plan: improving with antibiotics Status: Acute (5) Coagulopathy Assessment & Plan: repeat mixing study prior study corrected suggesting factor deficiency/nutritional coagulopathy Status: Acute
--- NOTE | 2018-01-28 21:28 | CP.PCM.PN ---
Subjective - Date & Time of Evaluation Date of Evaluation: 01/26/18 Time of Evaluation: 12:00 - Subjective Subjective: Has some right LE stump pain. Objective - Vital Signs/Intake and Output Vital Signs (last 24 hours): Temp Pulse Resp BP Pulse Ox 97.8 F 96 H 13 124/45 L 100 01/28/18 07:00 01/28/18 18:00 01/28/18 11:26 01/28/18 10:00 01/28/18 00:00 Intake and Output: 01/28/18 01/29/18 18:59 06:59 Intake Total 700 Output Total 0 Balance 700 - Medications Medications: Current Medications Acetaminophen (Tylenol 325mg Tab) 650 mg PO Q6H PRN PRN Reason: Pain, moderate (4-7) Last Admin: 01/25/18 18:44 Dose: 650 mg Albuterol/Ipratropium (Duoneb 3 Mg/0.5 Mg (3 Ml) Ud) 3 ml IH [id number] PRN PRN Reason: Shortness of Breath Last Admin: 01/27/18 13:07 Dose: 3 ml Arformoterol Tartrate (Brovana) 15 mcg IH [id number] [facility] Last Admin: 01/28/18 08:06 Dose: 15 mcg Atorvastatin Calcium (Lipitor) 80 mg PO HS [facility] Last Admin: 01/27/18 21:43 Dose: Not Given Bacitracin (Bacitracin) 1 ea TOP BID [facility] Last Admin: 01/28/18 17:15 Dose: 1 ea Budesonide (Pulmicort Respules) 0.5 mg IH Q12H [facility] Last Admin: 01/28/18 20:09 Dose: 0.5 mg Collagenase (Santyl) 1 gm TOP DAILY [facility] Last Admin: 01/28/18 12:00 Dose: 1 applic Duloxetine HCl (Cymbalta) 40 mg PO DAILY [facility] Last Admin: 01/28/18 09:29 Dose: 40 mg Famotidine (Pepcid) 20 mg PO HS [facility] Last Admin: 01/27/18 21:43 Dose: Not Given Fenofibrate (Tricor) 145 mg PO DAILY [facility] Last Admin: 01/28/18 09:24 Dose: 145 mg Fluticasone Propionate (Flonase) 1 actuation NS DAILY PRN PRN Reason: Nasal congestion Guaifenesin (Mucinex La) 600 mg PO BID PRN PRN Reason: Cough Heparin Sodium (Porcine) (Heparin) 5,000 units SC Q12 [facility]; Protocol Last Admin: 01/26/18 15:40 Dose: Not Given Meropenem/Sodium Chloride (Merrem Iv 500 Mg/Ns 50 Ml) 500 mg in 50 mls @ 100 mls/hr IVPB Q12 [facility]; Protocol Last Admin: 01/28/18 09:24 Dose: 100 mls/hr NOREPINEPHRINE BIT/0.9 % NACL (Levophed 4 Mg/ 250 Ml Ns Premixed) 4 mg in 250 mls @ 15 mls/hr IV .[id number] PRN; Protocol PRN Reason: TITRATE PER MD ORDER Last Titration: 01/27/18 21:42 Dose: 2 mcg/min, 7.5 mls/hr Insulin Detemir (Levemir) 10 unit SC HS [facility] Last Admin: 01/27/18 22:30 Dose: Not Given Insulin Human Regular (Humulin R) 10 units SC AC [facility] Last Admin: 01/28/18 16:44 Dose: Not Given Insulin Human Regular (Humulin R High) 0 units SC ACHS [facility]; Protocol Last Admin: 01/28/18 16:45 Dose: Not Given Latanoprost (Xalatan Opht) 0 ml OU HS [facility] Last Admin: 01/27/18 02:21 Dose: Not Given Levothyroxine Sodium (Synthroid) 50 mcg PO 0600 [facility] Last Admin: 01/28/18 09:18 Dose: 50 mcg Metoprolol Tartrate (Lopressor) 25 mg PO BID [facility] Last Admin: 01/28/18 17:12 Dose: Not Given Oxycodone/Acetaminophen (Percocet 5/325 Mg Tab) 1 tab PO Q4H PRN PRN Reason: Pain, moderate (4-7) Stop: 01/30/18 08:41 Last Admin: 01/27/18 10:49 Dose: 1 tab Sodium Chloride (Declo Nasal [place]) 0 ml NS Q2 PRN PRN Reason: nasal congestion. Ticagrelor (Brilinta) 90 mg PO BID [facility] Last Admin: 01/28/18 17:16 Dose: 90 mg Zaleplon (Sonata) 5 mg PO HS [facility] Last Admin: 01/27/18 23:38 Dose: 5 mg - Labs Labs: 01/28/18 05:50 01/28/18 05:50 PT 20.6 SECONDS (9.4-12.5) H 01/23/18 08:50 INR 1.77 01/23/18 08:50 APTT 33.8 Seconds (25.1-36.5) 01/23/18 08:50 - Head Exam Head Exam: ATRAUMATIC - Eye Exam Eye Exam: Normal appearance - ENT Exam ENT Exam: Mucous Membranes Dry - Respiratory Exam Respiratory Exam: NORMAL BREATHING PATTERN - Cardiovascular Exam Cardiovascular Exam: +S1, +S2 - GI/Abdominal Exam GI & Abdominal Exam: Normal Bowel Sounds Assessment and Plan (1) Hypercoagulable state Assessment & Plan: rule out inherited thrombophilia w/u sent on dual antiplatelet therapy Status: Acute (2) Thrombocytopenia Assessment & Plan: mild improved from prior HIV and hepatitis B/C negative antiphospholipid Ab panel negative Status: Acute (3) Anemia Assessment & Plan: anemia of CKD anemia of chronic disease right LE stump bleeding transfusion support PRN Status: Acute (4) Leukocytosis Assessment & Plan: improving with antibiotics Status: Acute (5) Coagulopathy Assessment & Plan: repeat mixing study prior study corrected suggesting factor deficiency/nutritional coagulopathy Status: Acute
--- NOTE | 2018-01-28 21:31 | CP.PCM.PN ---
Subjective - Date & Time of Evaluation Date of Evaluation: 01/27/18 Time of Evaluation: 19:00 - Subjective Subjective: Transferred to ICU for confusion and hypotension Objective - Vital Signs/Intake and Output Vital Signs (last 24 hours): Temp Pulse Resp BP Pulse Ox 97.8 F 96 H 13 124/45 L 100 01/28/18 07:00 01/28/18 18:00 01/28/18 11:26 01/28/18 10:00 01/28/18 00:00 Intake and Output: 01/28/18 01/29/18 18:59 06:59 Intake Total 700 Output Total 0 Balance 700 - Medications Medications: Current Medications Acetaminophen (Tylenol 325mg Tab) 650 mg PO Q6H PRN PRN Reason: Pain, moderate (4-7) Last Admin: 01/25/18 18:44 Dose: 650 mg Albuterol/Ipratropium (Duoneb 3 Mg/0.5 Mg (3 Ml) Ud) 3 ml IH [id number] PRN PRN Reason: Shortness of Breath Last Admin: 01/27/18 13:07 Dose: 3 ml Arformoterol Tartrate (Brovana) 15 mcg IH [id number] [facility] Last Admin: 01/28/18 08:06 Dose: 15 mcg Atorvastatin Calcium (Lipitor) 80 mg PO HS [facility] Last Admin: 01/27/18 21:43 Dose: Not Given Bacitracin (Bacitracin) 1 ea TOP BID [facility] Last Admin: 01/28/18 17:15 Dose: 1 ea Budesonide (Pulmicort Respules) 0.5 mg IH Q12H [facility] Last Admin: 01/28/18 20:09 Dose: 0.5 mg Collagenase (Santyl) 1 gm TOP DAILY [facility] Last Admin: 01/28/18 12:00 Dose: 1 applic Duloxetine HCl (Cymbalta) 40 mg PO DAILY [facility] Last Admin: 01/28/18 09:29 Dose: 40 mg Famotidine (Pepcid) 20 mg PO HS [facility] Last Admin: 01/27/18 21:43 Dose: Not Given Fenofibrate (Tricor) 145 mg PO DAILY [facility] Last Admin: 01/28/18 09:24 Dose: 145 mg Fluticasone Propionate (Flonase) 1 actuation NS DAILY PRN PRN Reason: Nasal congestion Guaifenesin (Mucinex La) 600 mg PO BID PRN PRN Reason: Cough Heparin Sodium (Porcine) (Heparin) 5,000 units SC Q12 [facility]; Protocol Last Admin: 01/26/18 15:40 Dose: Not Given Meropenem/Sodium Chloride (Merrem Iv 500 Mg/Ns 50 Ml) 500 mg in 50 mls @ 100 mls/hr IVPB Q12 [facility]; Protocol Last Admin: 01/28/18 09:24 Dose: 100 mls/hr NOREPINEPHRINE BIT/0.9 % NACL (Levophed 4 Mg/ 250 Ml Ns Premixed) 4 mg in 250 mls @ 15 mls/hr IV .[id number] PRN; Protocol PRN Reason: TITRATE PER MD ORDER Last Titration: 01/27/18 21:42 Dose: 2 mcg/min, 7.5 mls/hr Insulin Detemir (Levemir) 10 unit SC HS [facility] Last Admin: 01/27/18 22:30 Dose: Not Given Insulin Human Regular (Humulin R) 10 units SC AC [facility] Last Admin: 01/28/18 16:44 Dose: Not Given Insulin Human Regular (Humulin R High) 0 units SC ACHS [facility]; Protocol Last Admin: 01/28/18 16:45 Dose: Not Given Latanoprost (Xalatan Opht) 0 ml OU HS [facility] Last Admin: 01/27/18 02:21 Dose: Not Given Levothyroxine Sodium (Synthroid) 50 mcg PO 0600 [facility] Last Admin: 01/28/18 09:18 Dose: 50 mcg Metoprolol Tartrate (Lopressor) 25 mg PO BID [facility] Last Admin: 01/28/18 17:12 Dose: Not Given Oxycodone/Acetaminophen (Percocet 5/325 Mg Tab) 1 tab PO Q4H PRN PRN Reason: Pain, moderate (4-7) Stop: 01/30/18 08:41 Last Admin: 01/27/18 10:49 Dose: 1 tab Sodium Chloride ([place] Nasal [place]) 0 ml NS Q2 PRN PRN Reason: nasal congestion. Ticagrelor (Brilinta) 90 mg PO BID [facility] Last Admin: 01/28/18 17:16 Dose: 90 mg Zaleplon (Sonata) 5 mg PO HS [facility] Last Admin: 01/27/18 23:38 Dose: 5 mg - Labs Labs: 01/28/18 05:50 01/28/18 05:50 PT 20.6 SECONDS (9.4-12.5) H 01/23/18 08:50 INR 1.77 01/23/18 08:50 APTT 33.8 Seconds (25.1-36.5) 01/23/18 08:50 - Head Exam Head Exam: ATRAUMATIC - Eye Exam Eye Exam: Normal appearance - ENT Exam ENT Exam: Mucous Membranes Dry - Respiratory Exam Respiratory Exam: NORMAL BREATHING PATTERN - Cardiovascular Exam Cardiovascular Exam: +S1, +S2 - GI/Abdominal Exam GI & Abdominal Exam: Normal Bowel Sounds Assessment and Plan (1) Hypercoagulable state Assessment & Plan: rule out inherited thrombophilia w/u sent on dual antiplatelet therapy Status: Acute (2) Thrombocytopenia Assessment & Plan: mild improved from prior HIV and hepatitis B/C negative antiphospholipid Ab panel negative Status: Acute (3) Anemia Assessment & Plan: anemia of CKD anemia of chronic disease right LE stump bleeding transfusion support PRN Status: Acute (4) Leukocytosis Assessment & Plan: improving with antibiotics Status: Acute (5) Coagulopathy Assessment & Plan: repeat mixing study pending prior study corrected suggesting factor deficiency/nutritional coagulopathy Status: Acute
[2018-01-28] MEDS ORDERED: Dextrose 50% SYRINGE Inj (50 ml) ONE (21:39)
[2018-01-28] MEDS: Insulin Detemir 100 units/ml Vial (Levemir) SC SCH (22:33)
[2018-01-29] MEDS: NOREPINEPHRINE BIT/0.9 % NACL 4 MG/250 ML BAG IV PRN (00:05)
[2018-01-29] MEDS ORDERED: Dextrose 50% SYRINGE Inj (50 ml) IVP ONE (03:17)
[2018-01-29 05:56] LABS: BASO # 0.01 K/mm3 (0.0-2.0); BASO % 0.1 % (0.0-3.0); EOS % 0.1 % (1.5-5.0); GRAN # 11.45 (1.4-6.5); GRAN % 83.2 % (50.0-68.0); HEMOGLOBIN 9.4 g/dL (14.0-18.0); LYMPH # 1.2 (1.2-3.4); LYMPH % 8.5 % (22.0-35.0); MEAN CELL VOLUME 91.9 fl (80.0-105.0); MEAN CORPUSCULAR HEMOGLOBIN 30.6 pg (25.0-35.0); MEAN CORPUSCULAR HGB CONC 33.3 g/dl (31.0-37.0); MEAN PLATELET VOLUME 11.6 fl (7.0-11.0); MONO # 1.1 (0.1-0.6); MONO % 8.1 % (1.0-6.0); RBC 3.07 10^6/uL (3.5-6.1); RED CELL DISTRIBUTION WIDTH 18.7 % (11.5-14.5); WHITE BLOOD COUNT 13.8 10^3/uL (4.5-11.0)
[2018-01-29 06:26] LABS: ALB/GLOB RATIO 0.6 (1.1-1.8); ALBUMIN 2.4 g/dL (3.0-4.8)
[2018-01-29] MEDS: Levothyroxine 25 MCG TAB PO SCH (06:58)
[2018-01-29] MEDS: Arformoterol 15 mcg/2 ml Inh Sol IH SCH ×2 (07:25→20:21)
[2018-01-29] MEDS: Budesonide 0.5 mg/2 ml Inhal Susp UD IH SCH ×2 (07:26→20:21)
[2018-01-29] MEDS: Insulin Regular 1 UNITS/0.01 ML ML SC SCH ×3 (08:00→16:01)
[2018-01-29] MEDS: Insulin Reg-HIGH-Coverage SC SCH ×4 (08:00→21:21)
--- NOTE | 2018-01-29 08:51 | PN ---
DATE: 01/27/2018 PULMONARY CRITICAL CARE PROGRESS NOTE REFERRING PHYSICIAN: Gallo Potter MD. SUBJECTIVE: At my of arrival, the patient having rapid response, apparently was hypotensive, dropped hemoglobin. Packed RBC is being infused. Presently, head is down, had a wound VAC on the right BKA site and did bleed a lot. He is on Brilinta and aspirin. Also, has a low platelet. Sleepy, but arousable. Denying any significant shortness of breath or chest pain. No abdominal pain. No melena. No hematochezia. PHYSICAL EXAMINATION: GENERAL: [id number] distress secondary to hypotensive, afebrile, heart rate is 97, respiratory rate is 10, blood pressure was 74/41, pulse ox 96% on nasal cannula. HEENT: Moist mucous membrane. Crowded airway. Mallampati score is 4. NECK: Short, thick. LUNGS: Have a fair airflow. HEART: S1 and S2. ABDOMEN: Obese, soft, and nondistended. EXTREMITIES: Right BKA site is covered with a dressing. Left leg, trace edema. Upper extremities, cold to touch. Left hand fifth digit is gangrenous. NEUROLOGICAL: Lethargic, arousable. Follows simple command. MEDICATIONS: He is on Brilinta 90 mg twice a day which is placed on hold, Brovana inhaled twice a day, Cymbalta 40 mg daily, DuoNeb every 6 hours p.r.n., Flonase one spray in each nostril daily, heparin 5000 units subcu every 12 hours, Levemir 10 units subcu at bedtime, started on Levophed, Lipitor 80 mg daily, metoprolol tartrate 25 mg twice a day, meropenem 500 mg every 12 hours, Mucinex LA 600 mg twice a day, nasal saline every 2 hours p.r.n., Pepcid 20 mg at bedtime, Percocet 5/325 one tablet every 4 hours p.r.n., Pulmicort inhaled twice a day, Santyl 1 g topically daily, Sonata 5 mg at bedtime, Synthroid 50 mcg daily, TriCor 145 mg daily, and Tylenol p.r.n. basis. LABORATORY DATA: Shows hemoglobin 6.9, hematocrit 21.8, WBC 15.9, platelet count is 68. Blood sugar today is 126. Wound culture has Serratia marcescens. IMPRESSION AND PLAN: Severe anemia and thrombocytopenia. He is in septic shock; renal failure, dialysis dependent; chronic obstructive lung disease; coronary artery disease, last coronary stent was in 05/2017. I believe originally he was on Plavix. Had some issue with stent obstruction, switched to Brilinta. Cardiac arrhythmia requiring pacemaker, hypoventilation syndrome, sleep apnea syndrome, cardiac diastolic dysfunction, osteoporosis, peripheral vascular disease status post right below-knee amputation. 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 Spoke to the patient's mother at bedside. All the questions answered. Also, spoke to arrt technologist, Dr. Mcgregor, in detail. Need to speak to Dr. Erickson. I think we are 6-month to 7-month during the course of new stent, which was done in May. We will hold one antiplatelet medication. Continue at least aspirin for now. Of course, he is high risk for coronary thrombus. I agree to continue packed RBC infusion, may give p.r.n. fluid boluses. Follow up H and H every 4 hours. Agree with starting on Levophed. Encourage CPAP use at nighttime. Continue bronchodilator. If the patient does not stabilize, may need to consider platelet transfusion. Follow up rest of the labs in the morning. Thank you and we will follow with you. Jarred Escalera MD
[2018-01-29 09:15] LABS: ARTERIAL BLOOD GAS HCO3 24.2 mmol/L (21-28); ARTERIAL BLOOD GAS HEMOGLOBIN 8.9 g/dL (11.7-17.4); ARTERIAL BLOOD GAS O2 CAPACITY 12.6 mL/dl (16-24); ARTERIAL BLOOD GAS O2 CONTENT 12.5 ML/dl (15-23); ARTERIAL BLOOD GAS O2 SAT 99.1 % (95-98); ARTERIAL BLOOD GAS PCO2 40 mm/Hg (35-45); ARTERIAL BLOOD GAS PH 7.39 (7.35-7.45); ARTERIAL BLOOD GAS TCO2 25.4 mmol.L (22-28)
--- NOTE | 2018-01-29 09:31 | RAD ---
Date of service: 01/29/2018 HISTORY: effusion COMPARISON: 01/28/2018 FINDINGS: LUNGS: Improved left upper lobe infiltrate. PLEURA: No significant pleural effusion identified, no pneumothorax apparent. CARDIOVASCULAR: No aortic atherosclerotic calcification present. Moderate cardiomegaly mild vascular congestion OSSEOUS STRUCTURES: No significant abnormalities. VISUALIZED UPPER ABDOMEN: Normal. OTHER FINDINGS: None. IMPRESSION: No active disease.
--- NOTE | 2018-01-29 10:08 | RAD ---
Date of service: 01/29/2018 HISTORY: SOB COMPARISON: 01/29/2018 FINDINGS: LUNGS: No active pulmonary disease. PLEURA: No significant pleural effusion identified, no pneumothorax apparent. CARDIOVASCULAR: No aortic atherosclerotic calcification present. Moderate cardiomegaly moderate vascular congestion. Dual lead pacemaker OSSEOUS STRUCTURES: No significant abnormalities. VISUALIZED UPPER ABDOMEN: Normal. OTHER FINDINGS: None. IMPRESSION: Moderate cardiomegaly. Moderate vascular congestion
--- NOTE | 2018-01-29 10:09 | US ---
HISTORY: Leg pain and swelling. Evaluate for DVT PHYSICIAN(S): Alfredo Wynn MD. TECHNIQUE: Duplex sonography and color-flow Doppler with graded compression were used to evaluate the deep venous systems of both lower extremities. The exam is limited by edema and portable technique. The patient is status post right TKA FINDINGS: The right common femoral vein and right femoral vein are patent and compressible. Images of the proximal right profunda femoral vein are patent. There is no sonographic evidence for deep venous thrombosis in the visualized segments of left lower extremity. IMPRESSION: No sonographic evidence for deep venous thrombosis in the visualized segments of both lower extremities. Limited study. Status post right BKA
[2018-01-29] MEDS ORDERED: Iohexol 350 MG/100 ML VIAL ONE (10:42)
--- NOTE | 2018-01-29 11:06 | CP.PCM.PN ---
<Jojo Crouch - Last Filed: 01/29/18 11:12> Subjective - Date & Time of Evaluation Date of Evaluation: 01/29/18 Time of Evaluation: 07:10 - Subjective Subjective: Jojo Crouch DO, PGY-2: Progress Note for Dr. Potter Patient was seen and examined at bedside. Patient denies any chest pain, nausea, or vomiting. He admits to dyspnea. ICU performed bedside echocardiogram that showed mildly dilated RV. Patient does have pulmonary hypertension. ICU team also ordered CT per PE protocol. Patient is to undergo dialysis today with removal of fluid, and quite possibly angiogram for right upper extremity due to dry gangrenous changes of right pinky finger, unless defered at this time. Objective - Vital Signs/Intake and Output Vital Signs (last 24 hours): Temp Pulse Resp BP Pulse Ox 97.8 F 88 14 133/43 L 100 01/28/18 07:00 01/29/18 02:00 01/29/18 01:47 01/29/18 01:21 01/28/18 00:00 Intake and Output: 01/29/18 01/29/18 06:59 18:59 Intake Total 335 Output Total 0 Balance 335 - Medications Medications: Current Medications Acetaminophen (Tylenol 325mg Tab) 650 mg PO Q6H PRN PRN Reason: Pain, moderate (4-7) Last Admin: 01/25/18 18:44 Dose: 650 mg Albuterol/Ipratropium (Duoneb 3 Mg/0.5 Mg (3 Ml) Ud) 3 ml IH [id number] PRN PRN Reason: Shortness of Breath Last Admin: 01/27/18 13:07 Dose: 3 ml Arformoterol Tartrate (Brovana) 15 mcg IH [id number] [facility] Last Admin: 01/29/18 07:25 Dose: 15 mcg Atorvastatin Calcium (Lipitor) 80 mg PO HS [facility] Last Admin: 01/28/18 22:32 Dose: Not Given Bacitracin (Bacitracin) 1 ea TOP BID [facility] Last Admin: 01/28/18 17:15 Dose: 1 ea Budesonide (Pulmicort Respules) 0.5 mg IH Q12H [facility] Last Admin: 01/29/18 07:26 Dose: 0.5 mg Collagenase (Santyl) 1 gm TOP DAILY [facility] Last Admin: 01/28/18 12:00 Dose: 1 applic Duloxetine HCl (Cymbalta) 40 mg PO DAILY [facility] Last Admin: 01/28/18 09:29 Dose: 40 mg Famotidine (Pepcid) 20 mg PO HS [facility] Last Admin: 01/28/18 22:32 Dose: Not Given Fenofibrate (Tricor) 145 mg PO DAILY [facility] Last Admin: 01/28/18 09:24 Dose: 145 mg Fluticasone Propionate (Flonase) 1 actuation NS DAILY PRN PRN Reason: Nasal congestion Guaifenesin (Mucinex La) 600 mg PO BID PRN PRN Reason: Cough Heparin Sodium (Porcine) (Heparin) 5,000 units SC Q12 [facility]; Protocol Last Admin: 01/26/18 15:40 Dose: Not Given NOREPINEPHRINE BIT/0.9 % NACL (Levophed 4 Mg/ 250 Ml Ns Premixed) 4 mg in 250 mls @ 15 mls/hr IV .[id number] PRN; Protocol PRN Reason: TITRATE PER MD ORDER Last Admin: 01/29/18 00:05 Dose: 2 mcg/min, 7.5 mls/hr Meropenem/Sodium Chloride (Merrem Iv 500 Mg/Ns 50 Ml) 500 mg in 50 mls @ 100 mls/hr IVPB Q12 [facility]; Protocol Stop: 02/05/18 10:01 Insulin Detemir (Levemir) 10 unit SC HS [facility] Last Admin: 01/28/18 22:33 Dose: Not Given Insulin Human Regular (Humulin R) 10 units SC AC [facility] Last Admin: 01/28/18 16:44 Dose: Not Given Insulin Human Regular (Humulin R High) 0 units SC ACHS [facility]; Protocol Last Admin: 01/28/18 22:39 Dose: Not Given Latanoprost (Xalatan Opht) 0 ml OU HS [facility] Last Admin: 01/27/18 02:21 Dose: Not Given Levothyroxine Sodium (Synthroid) 50 mcg PO 0600 [facility] Last Admin: 01/29/18 06:58 Dose: 50 mcg Metoprolol Tartrate (Lopressor) 25 mg PO BID [facility] Last Admin: 01/28/18 17:12 Dose: Not Given Midodrine (Proamatine) 5 mg PO TID [facility] Oxycodone/Acetaminophen (Percocet 5/325 Mg Tab) 1 tab PO Q4H PRN PRN Reason: Pain, moderate (4-7) Stop: 01/30/18 08:41 Last Admin: 01/27/18 10:49 Dose: 1 tab Sodium Chloride (Daniels Nasal [place]) 0 ml NS Q2 PRN PRN Reason: nasal congestion. Ticagrelor (Brilinta) 90 mg PO BID [facility] Last Admin: 01/28/18 17:16 Dose: 90 mg Zaleplon (Sonata) 5 mg PO HS [facility] Last Admin: 01/28/18 22:39 Dose: Not Given - Labs Labs: 01/29/18 05:30 01/29/18 05:30 PT 20.6 SECONDS (9.4-12.5) H 01/23/18 08:50 INR 1.77 01/23/18 08:50 APTT 33.8 Seconds (25.1-36.5) 01/23/18 08:50 - Constitutional Appears: Non-toxic, No Acute Distress - Head Exam Head Exam: ATRAUMATIC Additional comments: bradley facies - Eye Exam Eye Exam: Conjunctival injection, EOMI - ENT Exam ENT Exam: Mucous Membranes Moist - Neck Exam Neck Exam: Normal Inspection - Respiratory Exam Respiratory Exam: Decreased Breath Sounds (left greater than right), NORMAL BREATHING PATTERN - Cardiovascular Exam Cardiovascular Exam: RRR, +S1, +S2 - GI/Abdominal Exam GI & Abdominal Exam: Soft. absent: Distended, Guarding - Extremities Exam Extremities Exam: Pedal Edema. absent: Calf Tenderness Additional comments: right BKA noted without evidence of bleeding - Neurological Exam Neurological Exam: Awake, Oriented x3 - Psychiatric Exam Psychiatric exam: Normal Affect, Normal Mood - Skin Skin Exam: Dry, Intact, Normal Color, Warm Assessment and Plan - Assessment and Plan (Free Text) Assessment: 52 year old male with a past medical history notable for ESRD, CAD with MD 4 months ago, right BKA, and left third digit amputation who presents with melena and diarrhea. His blood cultures are growing Serratia Marcesans from infected right BKA. Patient is s/p local debridement and wound vacuum placement of the right BKA. Right index finger is turning blue. Interventional radiologist was consulted who recommends angiogram of the right arm to look at vasculature, tentatively planned for Monday. Plan: 1) Sepsis secondary to Serratia Marcescans bacteremia from right BKA stump infection - Wound care per surgery - Merropenem 500 mg q12h day 2) Hemmorhagic shock s/p transfusion of 3 units of PRBCS and 1 unit of leukocyte reduced platelets - Recommend tapering Norepinephrine and removing right arterial line 3) Dry Gangrene of right pinky finger - Dr. Wynn recommends angiogram of the right arm to be performed Monday 4) ESRD - Continue with dialysis 3) CAD - Continue Brillinta 90 mg BID - Aspirin 81 mg - Metroprolol 25 mg BID (currently held) - Atorvastatin 80 mg HS - Dr. Erickson consulted, appreciate recommendations 4) DM II - Humulin 10 mg AC with fingerstick BG ACHS - Levemir 10 mg HS - Blood sugars goals are between 150-200 5) Upper respiratory symptoms - Mucinex LA 650 PRN - Flonase PRN - Duonebs q6h PRN for dyspnea 6) Hypothyroidism - Levothyroxine 50 mcg PO daily 7) Hyperlipidemia - Fenofibrate 145 mg PO daily 8) Glaucoma - Latanoprost drops OU 9) Adrenal insufficiency - Morning cortisol was 120 (5-6 times the ULN) - Solucortef 50 mg daily was discontinued 10) RENATA - Continue with noninvasive positive airway pressure as per pulmonology's recommendations 11) Depressed mood in a patient with multiple, life-threatening comorbidities - Dr. Malin consulted, patient may benefit from cognitive behavioral therapy and medications, appreciate recommendations - Agree with Sonata and Duloxetine 12) Physical therapy in the setting of recent BKA - Physical therapy evaluation submitted 13) DVT/GI prophylaxis - Heparin 5,000 q12h - Pepcid 20 mg HS Disposition: Guarded Case was reviewed and discussed with attending physician, Dr. Potter <Gallo Potter S - Last Filed: 01/29/18 20:20> Objective - Vital Signs/Intake and Output Vital Signs (last 24 hours): Temp Pulse Resp BP Pulse Ox 98.2 F 76 15 116/48 L 100 01/29/18 12:00 01/29/18 19:02 01/29/18 19:02 01/29/18 18:00 01/28/18 00:00 - Medications Medications: Current Medications Acetaminophen (Tylenol 325mg Tab) 650 mg PO Q6H PRN PRN Reason: Pain, moderate (4-7) Last Admin: 01/25/18 18:44 Dose: 650 mg Albuterol/Ipratropium (Duoneb 3 Mg/0.5 Mg (3 Ml) Ud) 3 ml IH [id number] PRN PRN Reason: Shortness of Breath Last Admin: 01/27/18 13:07 Dose: 3 ml Arformoterol Tartrate (Brovana) 15 mcg IH [id number] [facility] Last Admin: 01/29/18 07:25 Dose: 15 mcg Aspirin (Ecotrin) 81 mg PO DAILY [facility] Atorvastatin Calcium (Lipitor) 80 mg PO HS [facility] Last Admin: 01/28/18 22:32 Dose: Not Given Budesonide (Pulmicort Respules) 0.5 mg IH Q12H [facility] Last Admin: 01/29/18 07:26 Dose: 0.5 mg Collagenase (Santyl) 1 gm TOP DAILY [facility] Last Admin: 01/29/18 18:03 Dose: 1 applic Duloxetine HCl (Cymbalta) 40 mg PO DAILY [facility] Last Admin: 01/29/18 14:59 Dose: 40 mg Famotidine (Pepcid) 20 mg PO HS [facility] Last Admin: 01/28/18 22:32 Dose: Not Given Fenofibrate (Tricor) 145 mg PO DAILY [facility] Last Admin: 01/29/18 14:59 Dose: 145 mg Fluticasone Propionate (Flonase) 1 actuation NS DAILY PRN PRN Reason: Nasal congestion Guaifenesin (Mucinex La) 600 mg PO BID PRN PRN Reason: Cough Heparin Sodium (Porcine) (Heparin) 5,000 units SC Q12 [facility]; Protocol Last Admin: 01/26/18 15:40 Dose: Not Given NOREPINEPHRINE BIT/0.9 % NACL (Levophed 4 Mg/ 250 Ml Ns Premixed) 4 mg in 250 mls @ 15 mls/hr IV .[id number] PRN; Protocol PRN Reason: TITRATE PER MD ORDER Last Admin: 01/29/18 00:05 Dose: 2 mcg/min, 7.5 mls/hr Meropenem/Sodium Chloride (Merrem Iv 500 Mg/Ns 50 Ml) 500 mg in 50 mls @ 100 mls/hr IVPB Q12 [facility]; Protocol Stop: 02/05/18 10:01 Last Admin: 01/29/18 15:00 Dose: 100 mls/hr Insulin Detemir (Levemir) 10 unit SC HS [facility] Last Admin: 01/28/18 22:33 Dose: Not Given Insulin Human Regular (Humulin R) 10 units SC AC [facility] Last Admin: 01/29/18 16:01 Dose: Not Given Insulin Human Regular (Humulin R High) 0 units SC ACHS [facility]; Protocol Last Admin: 01/29/18 16:01 Dose: Not Given Latanoprost (Xalatan Opht) 0 ml OU [facility] Last Admin: 01/27/18 02:21 Dose: Not Given Levothyroxine Sodium (Synthroid) 50 mcg PO 0600 [facility] Last Admin: 01/29/18 06:58 Dose: 50 mcg Metoprolol Tartrate (Lopressor) 25 mg PO BID [facility] Last Admin: 01/29/18 14:59 Dose: 25 mg Midodrine (Proamatine) 5 mg PO TID [facility] Last Admin: 01/29/18 14:59 Dose: 5 mg Ondansetron HCl (Zofran Inj) 4 mg IVP Q6H PRN PRN Reason: Nausea/Vomiting Last Admin: 01/29/18 11:58 Dose: 4 mg Oxycodone/Acetaminophen (Percocet 5/325 Mg Tab) 1 tab PO Q4H PRN PRN Reason: Pain, moderate (4-7) Stop: 01/30/18 08:41 Last Admin: 01/29/18 17:09 Dose: 1 tab Sodium Chloride (Daniels Nasal [place]) 0 ml NS Q2 PRN PRN Reason: nasal congestion. Ticagrelor (Brilinta) 90 mg PO BID [facility] Last Admin: 01/29/18 15:03 Dose: 90 mg Zaleplon (Sonata) 5 mg PO [facility] Last Admin: 01/28/18 22:39 Dose: Not Given - Labs Labs: 01/29/18 05:30 01/29/18 05:30 PT 20.6 SECONDS (9.4-12.5) H 01/23/18 08:50 INR 1.77 01/23/18 08:50 APTT 33.8 Seconds (25.1-36.5) 01/23/18 08:50 Assessment and Plan - Assessment and Plan (Free Text) Assessment: Pt seen and examined. I have reviewed the note of the medical records clerk and agree with it. I have discussed the assessment and plan with the resident. I have reviewed the patient's labs and medications. Pt with sepsis but is improved. He is getting HD today. He is in the ICU and will need to wean Levophed. His R BKA continues to bleed but is better. The Hb is better with the transfusion. He is to get an angiogram of his upper extremity today.
--- NOTE | 2018-01-29 11:27 | PN ---
DATE: 01/29/2018 SUBJECTIVE: The patient is seen and examined at bedside. He appears to be in some respiratory distress. Chest x-ray did not show any big changes compared with prior chest x-ray done early in the morning. Definitely, no pneumothorax. ABG showed pH 7.39/40/150 on nasal cannula. He is only on 1 mcg per minute of norepinephrine. Blood pressure 129/50 (it has been left on just for duration of dialysis). The patient appears to have hypercoagulable state and we are going to do CAT scan with PE protocol to rule out pulmonary embolism. The patient, however, is on DVT prophylaxis. I would avoid therapeutic anticoagulation empirically as the patient was admitted to ICU for hemorrhagic shock, which was contained with resolution of bleeding and almost complete protestant of hemodynamic instability. If CT with PE protocol reveals PE, next step would be to consider IVC filter. PHYSICAL EXAMINATION: VITAL SIGNS: Blood pressure 123/46 with mean arterial pressure is 72, oxygen saturation 100%, heart rate 88, respiratory 15 (just now went down from around 30). GENERAL: The patient is alert, awake and oriented x3. ENT: Atraumatic, obese neck. HEART: Regular rate and rhythm. S1 and S2 distant. LUNGS: Few wheezes bilaterally (dual bronchodilator treatment and the nebulizer was given without substantial effect on the shortness of breath). ABDOMEN: Soft, nontender, nondistended. MUSCULOSKELETAL: Status post BKA on the right side. No signs of bleeding. Some chronic cellulitic changes on the left lower extremities. SKIN: Moist. PSYCH: The patient is alert, awake and oriented x3. Was in some respiratory distress just a minute ago. MEDICATIONS: Tylenol p.r.n., DuoNeb p.r.n., Brovana, Lipitor, Pulmicort, Santyl, Cymbalta, Pepcid, TriCor, Flonase, heparin subcu for DVT prophylaxis now held, Levemir, levothyroxine, meropenem, metoprolol, midodrine, norepinephrine, Percocet p.r.n., Brilinta, Sonata. ASSESSMENT AND PLAN: This is a 52-year-old gentleman, who presented with hemorrhagic shock,due to significant bleeding after right stump debridement now resolved. At present time, hemoglobin is stable for more than 24 hours. The patient however, developed acute and fairly severe episode of shortness of breath, which appears to be doing a little bit better right this minute. Nevertheless, ABG was done, which did not show any significant acute respiratory acidosis or hypoxemia. Chest x-ray did not show pneumothorax or any worsening of pulmonary edema. Hemodialysis is ongoing with a goal to remove 2.5 L of fluid. He did not require high dose of vasopressors at present time. Echocardiogram that was done at bedside did not show severely depressed left ventricle (even though cannot rule out mild to moderate LV systolic dysfunction)--> will defer to cardio service judgement. Right ventricle appears to be slightly dilated, but based on previous reports, does not appear to be much worse than that of 2 months ago. As the patient has end-stage renal disease and on chronic dialysis, he is not at high risk for further worsening of the renal function from contrast, thus we will proceed with CAT scan with PE protocol and venous Doppler of lower extremities. If deep venous thrombosis or pulmonary embolism are found, consideration will be given to inferior vena cava filter. We will continue to maintain euvolemia, euglycemia, normothermia and oxygen saturation more than 90%. We will continue with deep venous thrombosis, gastrointestinal prophylaxes. Addneudm: as a part of sudden onset of chest tightness and SOB, troponin came back slightly more elevated then before (even though patient is on HD)-->will alert cardiology service, lower extremities venous doppler and CT with PE protcol ruled out VTE. Fairly large b/l pleural effusion was found, but HD is in proress with the goal to remove 2.5L of fluid. ccm time 40 min Adam Linares MD RACHEL
--- NOTE | 2018-01-29 11:36 | CP.PCM.PN ---
Subjective - Date & Time of Evaluation Date of Evaluation: 01/28/18 Time of Evaluation: 08:30 - Subjective Subjective: Still with some shortness of breath but a little better compared to previous days, noted patient upgraded to ICU since Monday night because of low BP. No fevers overnight. Objective - Vital Signs/Intake and Output Vital Signs (last 24 hours): Temp Pulse Resp BP Pulse Ox 98.1 F 102 H 20 85/50 L 96 01/27/18 06:00 01/27/18 06:00 01/27/18 06:00 01/27/18 06:00 01/27/18 06:00 Intake and Output: 01/27/18 01/27/18 06:59 18:59 Intake Total 240 Balance 240 - Medications Medications: Current Medications Acetaminophen (Tylenol 325mg Tab) 650 mg PO Q6H PRN PRN Reason: Pain, moderate (4-7) Last Admin: 01/25/18 18:44 Dose: 650 mg Albuterol/Ipratropium (Duoneb 3 Mg/0.5 Mg (3 Ml) Ud) 3 ml IH [id number] PRN PRN Reason: Shortness of Breath Last Admin: 01/22/18 08:18 Dose: 3 ml Amlodipine Besylate (Norvasc) 5 mg PO DAILY [facility] Last Admin: 01/26/18 10:00 Dose: Not Given Arformoterol Tartrate (Brovana) 15 mcg IH [id number] [facility] Last Admin: 01/26/18 21:38 Dose: Not Given Aspirin (Ecotrin) 81 mg PO DAILY [facility] Last Admin: 01/27/18 10:51 Dose: 81 mg Atorvastatin Calcium (Lipitor) 80 mg PO HS [facility] Last Admin: 01/26/18 22:15 Dose: 80 mg Bacitracin (Bacitracin) 1 ea TOP BID [facility] Last Admin: 01/27/18 10:54 Dose: 1 ea Budesonide (Pulmicort Respules) 0.5 mg IH Q12H [facility] Last Admin: 01/26/18 21:38 Dose: Not Given Collagenase (Santyl) 1 gm TOP DAILY [facility] Last Admin: 01/26/18 20:00 Dose: 1 applic Duloxetine HCl (Cymbalta) 40 mg PO DAILY [facility] Last Admin: 01/27/18 10:50 Dose: 40 mg Famotidine (Pepcid) 20 mg PO HS [facility] Last Admin: 01/26/18 22:15 Dose: 20 mg Fenofibrate (Tricor) 145 mg PO DAILY [facility] Last Admin: 01/27/18 10:49 Dose: 145 mg Fluticasone Propionate (Flonase) 1 actuation NS DAILY PRN PRN Reason: Nasal congestion Guaifenesin (Mucinex La) 600 mg PO BID PRN PRN Reason: Cough Heparin Sodium (Porcine) (Heparin) 5,000 units SC Q12 [facility]; Protocol Last Admin: 01/26/18 15:40 Dose: Not Given Meropenem/Sodium Chloride (Merrem Iv 500 Mg/Ns 50 Ml) 500 mg in 50 mls @ 100 mls/hr IVPB Q12 [facility]; Protocol Last Admin: 01/27/18 10:52 Dose: 100 mls/hr Insulin Detemir (Levemir) 10 unit SC [facility] Last Admin: 01/26/18 22:00 Dose: Not Given Insulin Human Regular (Humulin R) 10 units SC AC [facility] Last Admin: 01/27/18 08:44 Dose: Not Given Insulin Human Regular (Humulin R High) 0 units SC ACHS [facility]; Protocol Last Admin: 01/27/18 08:43 Dose: Not Given Latanoprost (Xalatan Opht) 0 ml OU [facility] Last Admin: 01/27/18 02:21 Dose: Not Given Levothyroxine Sodium (Synthroid) 50 mcg PO 0600 [facility] Last Admin: 01/27/18 05:53 Dose: 50 mcg Metoprolol Tartrate (Lopressor) 25 mg PO BID [facility] Last Admin: 01/27/18 10:44 Dose: Not Given Oxycodone/Acetaminophen (Percocet 5/325 Mg Tab) 1 tab PO Q4H PRN PRN Reason: Pain, moderate (4-7) Stop: 01/30/18 08:41 Last Admin: 01/27/18 10:49 Dose: 1 tab Sodium Chloride ([place]itchie Nasal [place]) 0 ml NS Q2 PRN PRN Reason: nasal congestion. Ticagrelor (Brilinta) 90 mg PO BID [facility] Last Admin: 01/27/18 10:50 Dose: 90 mg Zaleplon (Sonata) 5 [address] [facility] Last Admin: 01/26/18 22:15 Dose: 5 mg - Labs Labs: 01/27/18 09:50 01/25/18 09:00 PT 20.6 SECONDS (9.4-12.5) H 01/23/18 08:50 INR 1.77 01/23/18 08:50 APTT 33.8 Seconds (25.1-36.5) 01/23/18 08:50 - Constitutional Appears: Chronically Ill - Head Exam Head Exam: NORMAL INSPECTION - Neck Exam Neck Exam: absent: Meningismus - Respiratory Exam Respiratory Exam: Decreased Breath Sounds - Cardiovascular Exam Cardiovascular Exam: +S1, +S2 - GI/Abdominal Exam GI & Abdominal Exam: Soft. 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 diff. associated diarrhea ESRD on HD DM obesity CAD S/P PCI retinopathy history of pancreatitis Plan continue Merrem day 12 and we have added intermittent Vancomycin IV pending repeat blood cx; CXR is showing pleural effusion but cannot rule out pneumonia will continue to monitor clinically overall prognosis is poor
--- NOTE | 2018-01-29 11:42 | CT ---
Date of service: 01/29/2018 PROCEDURE: CT Chest with contrast (Pulmonary Angiogram) HISTORY: PE COMPARISON: None available. TECHNIQUE: Axial computed tomography images were obtained of the chest in the pulmonary arterial phase of enhancement. Coronal and sagittal reformatted images were created and reviewed. Intravenous contrast dose: Radiation dose: Total exam DLP = 518.24 mGy-cm. This CT exam was performed using one or more of the following dose reduction techniques: Automated exposure control, adjustment of the mA and/or kV according to patient size, and/or use of iterative reconstruction technique. FINDINGS: PULMONARY ARTERIES: Unremarkable. No pulmonary embolism. AORTA: No acute findings. No thoracic aortic aneurysm. No aortic atherosclerotic calcification or mural plaque present. HEART: Unremarkable. No cardiomegaly. No significant pericardial effusion. LYMPH NODES: No lymphadenopathy. BONES, CHEST WALL: Unremarkable. No fracture or destructive lesion OTHER FINDINGS: Large bilateral pleural effusions passive atelectasis at the lung bases consistent with CHF. IMPRESSION: Large bilateral pleural effusions passive atelectasis at the lung bases consistent with CHF.. No pulmonary embolus.
--- NOTE | 2018-01-29 12:57 | CARD ---
APPROVED REPORT Date of service: 01/29/2018 EKG Measurement Heart [id number] <Conclusion> Atrial sensed ventricular paced rhythm with frequent premature ventricular complexes in a pattern of bigeminy Left axis deviation Inferior infarct, age undetermined ST & T wave abnormality, consider lateral ischemia Abnormal ECG
--- NOTE | 2018-01-29 13:59 | CP.CCUPN ---
<Arnie Barr - Last Filed: 01/29/18 14:13> CCU Subjective - Physician Review Subjective (Free Text): CRITICAL CARE PROGRESS NOTE FOR DR. JENNIE Barr PGY-1 Pt seen and examined at bedside this am. Pt to undergo HD today with 2500 cc planned for filtration. He reports generalized malaise. This am he reported shortness of breath, and chest tightness. EKG, CT Chest PE protocol, chest xray were ordered. Cardiology made aware. CCU Objective - Vital Signs / Intake & Output Vital Signs (Last 4 hours): Vital Signs Temp Pulse Resp BP BP 01/29/18 13:11 83 11 L 01/29/18 13:10 82 12 01/29/18 13:09 83 12 01/29/18 13:08 84 10 L 01/29/18 13:07 85 11 L 01/29/18 13:06 88 13 01/29/18 13:05 80 12 01/29/18 13:04 83 14 01/29/18 13:03 79 11 L 01/29/18 13:02 87 14 01/29/18 13:01 83 14 01/29/18 13:00 82 11 L 119/36 L 119/36 L 01/29/18 12:59 80 11 L 01/29/18 12:58 76 11 L 01/29/18 12:57 82 12 01/29/18 12:56 83 12 01/29/18 12:55 83 12 01/29/18 12:54 86 12 01/29/18 12:53 85 11 L 01/29/18 12:52 81 12 01/29/18 12:51 83 12 01/29/18 12:50 85 12 01/29/18 12:49 83 12 01/29/18 12:48 82 13 01/29/18 12:47 83 12 01/29/18 12:46 83 11 L 01/29/18 12:45 85 12 01/29/18 12:44 83 12 01/29/18 12:43 83 13 01/29/18 12:42 81 11 L 01/29/18 12:41 82 11 L 01/29/18 12:40 82 12 01/29/18 12:39 82 11 L 01/29/18 12:38 82 11 L 01/29/18 12:37 83 11 L 11/12/18 12:36 84 9 L 01/29/18 12:35 85 10 L 01/29/18 12:34 85 11 L 01/29/18 12:33 86 16 01/29/18 12:32 87 01/29/18 12:31 86 12 01/29/18 12:30 86 16 01/29/18 12:29 87 26 H 01/29/18 12:28 87 24 01/29/18 12:27 86 14 01/29/18 12:26 86 15 01/29/18 12:25 85 10 L 01/29/18 12:24 86 13 01/29/18 12:23 85 12 01/29/18 12:22 84 12 01/29/18 12:00 98.2 F 116/42 L 116/42 L 01/29/18 11:30 123/44 L 123/44 L 01/29/18 10:00 109/37 L 110/36 L Intake and Output (Last 8hrs): Intake & Output 01/28/18 01/29/18 01/29/18 22:59 06:59 14:59 Intake Total 700 335 Output Total 0 0 Balance 700 335 Weight 84.822 kg Intake: IV 250 335 Left Femoral 250 45 Right Upper arm 0 50 Oral 450 Output: Urine 0 0 Urine, Voided 0 0 Other: # Bowel Movements 3 - Physical Exam Head: Positive for: Atraumatic, Normocephalic Extroacular Muscles: Positive for: EOMI Conjunctiva: Positive for: Normal Mouth: Positive for: Dry Respiratory/Chest: Positive for: Clear to Auscultation. Negative for: Respiratory Distress, Accessory Muscle Use, Wheezes, Rales, Rhonchi Cardiovascular: Positive for: Murmurs, Irregular Rhythm, Gallop Abdomen: Positive for: Tenderness (diffuse abdominal tenderness), Distention (firm) Rectal: Positive for: Occult Blood (hemoccult positive; black liquid material on glove with scant brb), Rectal Tenderness, Hemorrhoids, Normal Rectal Tone. Negative for: Fissures, Nodule/Mass/Lesions Upper Extremity: Negative for: Normal Inspection ((+) finger amputation with dressing) Lower Extremity: Negative for: Normal Inspection (right bka; left lower extremity with venous stasis changes), CALF TENDERNESS Neurological: Positive for: GCS=15 Skin: Positive for: Warm, Dry, Other ((+) small stage 2 sacral decubitus ulcer) Psychiatric: Positive for: Lethargic (but arousable) - Medications Active Medications: Active Medications Generic Name Dose Route Start Last Admin Trade Name Freq PRN Reason Stop Dose Admin Acetaminophen 650 mg 01/22/18 22:48 01/25/18 18:44 Tylenol 325mg Tab PO 650 mg Q6H PRN Administration Pain, moderate (4-7) Albuterol/Ipratropium 3 ml 01/16/18 08:36 01/27/18 13:07 Duoneb 3 Mg/0.5 Mg (3 Ml) Ud IH 3 ml [id number] PRN Administration Shortness of Breath Arformoterol Tartrate 15 mcg 01/16/18 20:00 01/29/18 07:25 Brovana IH 15 mcg [id number] CARLOS Administration Aspirin 81 mg 01/30/18 10:00 Ecotrin PO DAILY CARLOS Atorvastatin Calcium 80 mg 01/24/18 08:03 01/28/18 22:32 Lipitor PO Not Given HS CARLOS Bacitracin 1 ea 01/16/18 10:00 01/28/18 17:15 Bacitracin TOP 1 ea BID CARLOS Administration Budesonide 0.5 mg 01/16/18 08:45 01/29/18 07:26 Pulmicort Respules IH 0.5 mg Q12H CARLOS Administration Collagenase 1 gm 01/16/18 15:45 01/28/18 12:00 Santyl TOP 1 applic DAILY CARLOS Administration Duloxetine HCl 40 mg 01/24/18 12:24 01/28/18 09:29 Cymbalta PO 40 mg DAILY CARLOS Administration Famotidine 20 mg 01/16/18 22:00 01/28/18 22:32 Pepcid PO Not Given HS CARLOS Fenofibrate 145 mg 01/16/18 10:00 01/28/18 09:24 Tricor PO 145 mg DAILY CARLOS Administration Fluticasone Propionate 1 actuation 01/16/18 08:36 Flonase NS DAILY PRN Nasal congestion Guaifenesin 600 mg 01/16/18 08:36 Mucinex La PO BID PRN Cough Heparin Sodium (Porcine) 5,000 units 01/16/18 22:00 01/26/18 15:40 Heparin SC Not Given Q12 CARLOS Protocol NOREPINEPHRINE BIT/0.9 % NACL 4 mg in 250 mls @ 15 mls/hr 01/27/18 18:51 01/29/18 00:05 Levophed 4 Mg/ 250 Ml Ns Premixed IV 2 mcg/min .[id number] PRN 7.5 mls/hr TITRATE PER MD ORDER Administration Protocol 4 MCG/MIN Meropenem/Sodium Chloride 500 mg in 50 mls @ 100 mls/hr 01/29/18 10:00 Merrem Iv 500 Mg/Ns 50 Ml IVPB 02/05/18 10:01 Q12 [facility] Protocol Insulin Detemir 10 unit 01/23/18 22:00 01/28/18 22:33 Levemir SC Not Given HS [facility] Insulin Human Regular 10 units 01/23/18 11:30 01/29/18 13:11 Humulin R SC Not Given AC [facility] Insulin Human Regular 0 units 01/23/18 09:01 01/29/18 13:11 Humulin R High SC Not Given ACHS [facility] Protocol Latanoprost 0 ml 01/16/18 22:00 01/27/18 02:21 Xalatan Opht OU Not Given HS [facility] Levothyroxine Sodium 50 mcg 01/18/18 06:00 01/29/18 06:58 Synthroid PO 50 mcg 0600 [facility] Administration Metoprolol Tartrate 25 mg 01/16/18 10:00 01/28/18 17:12 Lopressor PO Not Given BID [facility] Midodrine 5 mg 01/29/18 10:00 01/29/18 10:30 Proamatine PO Not Given TID [facility] Ondansetron HCl 4 mg 01/29/18 11:28 01/29/18 11:58 Zofran Inj IVP 4 mg Q6H PRN Administration Nausea/Vomiting Oxycodone/Acetaminophen 1 tab 01/27/18 08:40 01/27/18 10:49 Percocet 5/325 Mg Tab PO 01/30/18 08:41 1 tab Q4H PRN Administration Pain, moderate (4-7) Sodium Chloride 0 ml 01/16/18 08:36 [place] Nasal [place] NS Q2 PRN nasal congestion. Ticagrelor 90 mg 01/16/18 10:00 01/28/18 17:16 Brilinta PO 90 mg BID [facility] Administration Zaleplon 5 mg 01/23/18 22:00 01/28/18 22:39 Sonata PO Not Given HS CARLOS - Patient Studies Lab Studies: Microbiology Studies 01/27/18 20:04 MRSA Culture (Admit) - Final Nose MRSA NOT DETECTED Lab Studies 01/29/18 01/29/18 01/29/18 Range/Units 09:00 05:30 05:30 WBC (4.5-11.0) 10^3/uL RBC (3.5-6.1) 10^6/uL Hgb (14.0-18.0) g/dL Hct (42.0-52.0) % MCV (80.0-105.0) fl MCH (25.0-35.0) pg MCHC (31.0-37.0) g/dl RDW (11.5-14.5) % Plt Count (120.0-450.0) 10^3/uL MPV (7.0-11.0) fl Gran % (50.0-68.0) % Lymph % (Auto) (22.0-35.0) % [place] % (Auto) (1.0-6.0) % Eos % (Auto) (1.5-5.0) % Baso % (Auto) (0.0-3.0) % Gran # (1.4-6.5) Lymph # (Auto) (1.2-3.4) [place] # (Auto) (0.1-0.6) Eos # (Auto) (0.0-0.7) Baso # (Auto) (0.0-2.0) K/mm3 Factor V pCO2 40 (35-45) mm/Hg pO2 150.0 H (80-100) mm/Hg HCO3 24.2 (21-28) mmol/L ABG pH 7.39 (7.35-7.45) ABG Total CO2 25.4 (22-28) mmol.L ABG O2 Saturation 99.1 H (95-98) % ABG O2 Content 12.5 L (15-23) ML/dl ABG Base Excess -0.7 (-2.0-3.0) mmol/L ABG Hemoglobin 8.9 L (11.7-17.4) g/dL ABG Carboxyhemoglobin 1.8 H (0.5-1.5) % POC ABG HHb (Measured) 0.9 (0-5) % ABG Methemoglobin 0.4 (0.0-3.0) % ABG O2 Capacity 12.6 L (16-24) mL/dl Hgb O2 Saturation 97.0 (95.0-98.0) % FiO2 32.0 % Sodium 139 (132-148) mmol/L Potassium 3.8 (3.6-5.0) mmol/L Chloride 102 (98-107) mmol/L Carbon Dioxide 28 (21-33) mmol/L Anion Gap 13 (10-20) BUN 36 H (7-21) mg/dL Creatinine 3.3 H (0.8-1.5) mg/dl Est GFR ( Amer) 24 Est GFR (Non-Af Amer) 20 POC Glucose (mg/dL) (65-110) mg/dL Random Glucose 100 (70-110) mg/dL Calcium 8.0 L (8.4-10.5) mg/dL Phosphorus 5.4 H (2.5-4.5) mg/dL Magnesium 2.0 (1.7-2.2) mg/dL Total Bilirubin 1.7 H (0.2-1.3) mg/dL AST 140 H D (17-59) U/L ALT 56 (7-56) U/L Alkaline Phosphatase 179 H (38-126) U/L Troponin I 0.67 H* D ng/mL Total Protein 6.1 (5.8-8.3) g/dL Albumin 2.4 L (3.0-4.8) g/dL Globulin 3.7 gm/dL Albumin/Globulin Ratio 0.6 L (1.1-1.8) 01/29/18 01/28/18 01/28/18 Range/Units 05:30 22:05 21:35 WBC 13.8 H (4.5-11.0) 10^3/uL RBC 3.07 L (3.5-6.1) 10^6/uL Hgb 9.4 L (14.0-18.0) g/dL Hct 28.2 L (42.0-52.0) % MCV 91.9 (80.0-105.0) fl MCH 30.6 (25.0-35.0) pg MCHC 33.3 (31.0-37.0) g/dl RDW 18.7 H (11.5-14.5) % Plt Count 102 L (120.0-450.0) 10^3/uL MPV 11.6 H (7.0-11.0) fl Gran % 83.2 H (50.0-68.0) % Lymph % (Auto) 8.5 L (22.0-35.0) % [place] % (Auto) 8.1 H (1.0-6.0) % Eos % (Auto) 0.1 L (1.5-5.0) % Baso % (Auto) 0.1 (0.0-3.0) % Gran # 11.45 H (1.4-6.5) Lymph # (Auto) 1.2 (1.2-3.4) [place] # (Auto) 1.1 H (0.1-0.6) Eos # (Auto) 0.0 (0.0-0.7) Baso # (Auto) 0.01 (0.0-2.0) K/mm3 Factor V pCO2 (35-45) mm/Hg pO2 (80-100) mm/Hg HCO3 (21-28) mmol/L ABG pH (7.35-7.45) ABG Total CO2 (22-28) mmol.L ABG O2 Saturation (95-98) % ABG O2 Content (15-23) ML/dl ABG Base Excess (-2.0-3.0) mmol/L ABG Hemoglobin (11.7-17.4) g/dL ABG Carboxyhemoglobin (0.5-1.5) % POC ABG HHb (Measured) (0-5) % ABG Methemoglobin (0.0-3.0) % ABG O2 Capacity (16-24) mL/dl Hgb O2 Saturation (95.0-98.0) % FiO2 % Sodium (132-148) mmol/L Potassium (3.6-5.0) mmol/L Chloride (98-107) mmol/L Carbon Dioxide (21-33) mmol/L Anion Gap (10-20) BUN (7-21) mg/dL Creatinine (0.8-1.5) mg/dl Est GFR ( Amer) Est GFR (Non-Af Amer) POC Glucose (mg/dL) 91 < 20 L* (65-110) mg/dL Random Glucose (70-110) mg/dL Calcium (8.4-10.5) mg/dL Phosphorus (2.5-4.5) mg/dL Magnesium (1.7-2.2) mg/dL Total Bilirubin (0.2-1.3) mg/dL AST (17-59) U/L ALT (7-56) U/L Alkaline Phosphatase (38-126) U/L Troponin I ng/mL Total Protein (5.8-8.3) g/dL Albumin (3.0-4.8) g/dL Globulin gm/dL Albumin/Globulin Ratio (1.1-1.8) 01/27/18 01/27/18 01/27/18 Range/Units 22:24 18:43 16:28 WBC (4.5-11.0) 10^3/uL RBC (3.5-6.1) 10^6/uL Hgb (14.0-18.0) g/dL Hct (42.0-52.0) % MCV (80.0-105.0) fl MCH (25.0-35.0) pg MCHC (31.0-37.0) g/dl RDW (11.5-14.5) % Plt Count (120.0-450.0) 10^3/uL MPV (7.0-11.0) fl Gran % (50.0-68.0) % Lymph % (Auto) (22.0-35.0) % [place] % (Auto) (1.0-6.0) % Eos % (Auto) (1.5-5.0) % Baso % (Auto) (0.0-3.0) % Gran # (1.4-6.5) Lymph # (Auto) (1.2-3.4) [place] # (Auto) (0.1-0.6) Eos # (Auto) (0.0-0.7) Baso # (Auto) (0.0-2.0) K/mm3 Factor V pCO2 (35-45) mm/Hg pO2 (80-100) mm/Hg HCO3 (21-28) mmol/L ABG pH (7.35-7.45) ABG Total CO2 (22-28) mmol.L ABG O2 Saturation (95-98) % ABG O2 Content (15-23) ML/dl ABG Base Excess (-2.0-3.0) mmol/L ABG Hemoglobin (11.7-17.4) g/dL ABG Carboxyhemoglobin (0.5-1.5) % POC ABG HHb (Measured) (0-5) % ABG Methemoglobin (0.0-3.0) % ABG O2 Capacity (16-24) mL/dl Hgb O2 Saturation (95.0-98.0) % FiO2 % Sodium (132-148) mmol/L Potassium (3.6-5.0) mmol/L Chloride (98-107) mmol/L Carbon Dioxide (21-33) mmol/L Anion Gap (10-20) BUN (7-21) mg/dL Creatinine (0.8-1.5) mg/dl Est GFR ( Amer) Est GFR (Non-Af Amer) POC Glucose (mg/dL) 217 H 188 H 204 H (65-110) mg/dL Random Glucose (70-110) mg/dL Calcium (8.4-10.5) mg/dL Phosphorus (2.5-4.5) mg/dL Magnesium (1.7-2.2) mg/dL Total Bilirubin (0.2-1.3) mg/dL AST (17-59) U/L ALT (7-56) U/L Alkaline Phosphatase (38-126) U/L Troponin I ng/mL Total Protein (5.8-8.3) g/dL Albumin (3.0-4.8) g/dL Globulin gm/dL Albumin/Globulin Ratio (1.1-1.8) 01/27/18 01/27/18 01/24/18 Range/Units 11:31 08:18 15:45 WBC (4.5-11.0) 10^3/uL RBC (3.5-6.1) 10^6/uL Hgb (14.0-18.0) g/dL Hct (42.0-52.0) % MCV (80.0-105.0) fl MCH (25.0-35.0) pg MCHC (31.0-37.0) g/dl RDW (11.5-14.5) % Plt Count (120.0-450.0) 10^3/uL MPV (7.0-11.0) fl Gran % (50.0-68.0) % Lymph % (Auto) (22.0-35.0) % [place] % (Auto) (1.0-6.0) % Eos % (Auto) (1.5-5.0) % Baso % (Auto) (0.0-3.0) % Gran # (1.4-6.5) Lymph # (Auto) (1.2-3.4) [place] # (Auto) (0.1-0.6) Eos # (Auto) (0.0-0.7) Baso # (Auto) (0.0-2.0) K/mm3 Factor V see note pCO2 (35-45) mm/Hg pO2 (80-100) mm/Hg HCO3 (21-28) mmol/L ABG pH (7.35-7.45) ABG Total CO2 (22-28) mmol.L ABG O2 Saturation (95-98) % ABG O2 Content (15-23) ML/dl ABG Base Excess (-2.0-3.0) mmol/L ABG Hemoglobin (11.7-17.4) g/dL ABG Carboxyhemoglobin (0.5-1.5) % POC ABG HHb (Measured) (0-5) % ABG Methemoglobin (0.0-3.0) % ABG O2 Capacity (16-24) mL/dl Hgb O2 Saturation (95.0-98.0) % FiO2 % Sodium (132-148) mmol/L Potassium (3.6-5.0) mmol/L Chloride (98-107) mmol/L Carbon Dioxide (21-33) mmol/L Anion Gap (10-20) BUN (7-21) mg/dL Creatinine (0.8-1.5) mg/dl Est GFR ( Amer) Est GFR (Non-Af Amer) POC Glucose (mg/dL) 228 H 154 H (65-110) mg/dL Random Glucose (70-110) mg/dL Calcium (8.4-10.5) mg/dL Phosphorus (2.5-4.5) mg/dL Magnesium (1.7-2.2) mg/dL Total Bilirubin (0.2-1.3) mg/dL AST (17-59) U/L ALT (7-56) U/L Alkaline Phosphatase (38-126) U/L Troponin I ng/mL Total Protein (5.8-8.3) g/dL Albumin (3.0-4.8) g/dL Globulin gm/dL Albumin/Globulin Ratio (1.1-1.8) Laboratory Results - last 24 hr 01/24/18 01/27/18 01/27/18 15:45 08:18 11:31 WBC RBC Hgb Hct MCV MCH MCHC RDW Plt Count MPV Gran % Lymph % (Auto) [place] % (Auto) Eos % (Auto) Baso % (Auto) Gran # Lymph # (Auto) [place] # (Auto) Eos # (Auto) Baso # (Auto) Factor V see note pCO2 pO2 HCO3 ABG pH ABG Total CO2 ABG O2 Saturation ABG O2 Content ABG Base Excess ABG Hemoglobin ABG Carboxyhemoglobin POC ABG HHb (Measured) ABG Methemoglobin ABG O2 Capacity Hgb O2 Saturation FiO2 Sodium Potassium Chloride Carbon Dioxide Anion Gap BUN Creatinine Est GFR ( Amer) Est GFR (Non-Af Amer) POC Glucose (mg/dL) 154 H 228 H Random Glucose Calcium Phosphorus Magnesium Total Bilirubin AST ALT Alkaline Phosphatase Troponin I Total Protein Albumin Globulin Albumin/Globulin Ratio 01/27/18 01/27/18 01/27/18 16:28 18:43 22:24 WBC RBC Hgb Hct MCV MCH MCHC RDW Plt Count MPV Gran % Lymph % (Auto) [place] % (Auto) Eos % (Auto) Baso % (Auto) Gran # Lymph # (Auto) [place] # (Auto) Eos # (Auto) Baso # (Auto) Factor V pCO2 pO2 HCO3 ABG pH ABG Total CO2 ABG O2 Saturation ABG O2 Content ABG Base Excess ABG Hemoglobin ABG Carboxyhemoglobin POC ABG HHb (Measured) ABG Methemoglobin ABG O2 Capacity Hgb O2 Saturation FiO2 Sodium Potassium Chloride Carbon Dioxide Anion Gap BUN Creatinine Est GFR ( Amer) Est GFR (Non-Af Amer) POC Glucose (mg/dL) 204 H 188 H 217 H Random Glucose Calcium Phosphorus Magnesium Total Bilirubin AST ALT Alkaline Phosphatase Troponin I Total Protein Albumin Globulin Albumin/Globulin Ratio 01/28/18 01/28/18 01/29/18 21:35 22:05 05:30 WBC 13.8 H RBC 3.07 L Hgb 9.4 L Hct 28.2 L MCV 91.9 MCH 30.6 MCHC 33.3 RDW 18.7 H Plt Count 102 L MPV 11.6 H Gran % 83.2 H Lymph % (Auto) 8.5 L [place] % (Auto) 8.1 H Eos % (Auto) 0.1 L Baso % (Auto) 0.1 Gran # 11.45 H Lymph # (Auto) 1.2 [place] # (Auto) 1.1 H Eos # (Auto) 0.0 Baso # (Auto) 0.01 Factor V pCO2 pO2 HCO3 ABG pH ABG Total CO2 ABG O2 Saturation ABG O2 Content ABG Base Excess ABG Hemoglobin ABG Carboxyhemoglobin POC ABG HHb (Measured) ABG Methemoglobin ABG O2 Capacity Hgb O2 Saturation FiO2 Sodium Potassium Chloride Carbon Dioxide Anion Gap BUN Creatinine Est GFR ( Amer) Est GFR (Non-Af Amer) POC Glucose (mg/dL) < 20 L* 91 Random Glucose Calcium Phosphorus Magnesium Total Bilirubin AST ALT Alkaline Phosphatase Troponin I Total Protein Albumin Globulin Albumin/Globulin Ratio 01/29/18 01/29/18 01/29/18 05:30 05:30 09:00 WBC RBC Hgb Hct MCV MCH MCHC RDW Plt Count MPV Gran % Lymph % (Auto) [place] % (Auto) Eos % (Auto) Baso % (Auto) Gran # Lymph # (Auto) [place] # (Auto) Eos # (Auto) Baso # (Auto) Factor V pCO2 40 pO2 150.0 H HCO3 24.2 ABG pH 7.39 ABG Total CO2 25.4 ABG O2 Saturation 99.1 H ABG O2 Content 12.5 L ABG Base Excess -0.7 ABG Hemoglobin 8.9 L ABG Carboxyhemoglobin 1.8 H POC ABG HHb (Measured) 0.9 ABG Methemoglobin 0.4 ABG O2 Capacity 12.6 L Hgb O2 Saturation 97.0 FiO2 32.0 Sodium 139 Potassium 3.8 Chloride 102 Carbon Dioxide 28 Anion Gap 13 BUN 36 H Creatinine 3.3 H Est GFR ( Amer) 24 Est GFR (Non-Af Amer) 20 POC Glucose (mg/dL) Random Glucose 100 Calcium 8.0 L Phosphorus 5.4 H Magnesium 2.0 Total Bilirubin 1.7 H AST 140 H D ALT 56 Alkaline Phosphatase 179 H Troponin I 0.67 H* D Total Protein 6.1 Albumin 2.4 L Globulin 3.7 Albumin/Globulin Ratio 0.6 L EKG/Cardiology Studies: Cardiology / EKG Studies 01/29/18 10:35 EKG [ELECTROCARDIOGRAM] Stat Comment: Reason For Exam: SOB Fingerstick Blood Sugar Results: 20 Review of Systems - Review of Systems Review of Systems: per HPI Critical Care Progress Note - Nutrition Nutrition: Nutrition Category Date Time Status Renal Diet [DIET] Diets 01/23/18 Dinner Ordered Assessment/Plan - Assessment and Plan (Free Text) Assessment: 52 y/o M with PMHx ESRD on HD TTS, PAD, IDDM, CHF, COPD, CAD s/p stents, pacemaker POD5 s/p debridement of necrotic R BKA stump admitted to ICU for hypotension 2/2 acute hemorrhage from R BKA. Plan: Neuro: AxO x 3 No FND Reorient as necessary Cardiovascular: Hx of [place] with stents 09/2017 Continue brilinta and aspirin L femoral and L arterial central line in place Monitor BP with arterial line Not requiring vasopressors at the moment POC echocardiogram done at bedside did not show severely depressed LV. Refer to cardiology input. RV appears slightly dilated. Maintain MAP >65 troponin came back elevated cardiology made aware instructed to trend troponins no emergent intervention at the moment Transfuse platelets Maintain Hgb >7.0 continue metoprolol continue atorvastatin continue fenofibrate f/u cardio recs Pulmonary: Developed acute SOB ABG revealed no acidosis or hypoxemia chest xray revealed no pneumothorax or worsening pulmonary edema CT w/ PE protocol showed no PE large b/l pleural effusion found, HD may remove some fluid venous doppler of LE showed no DVT RENATA BiPAP prn Mucinex flonase duonebs brovana f/u pulm recs GI: Diarrhea Pepcid for GI ppx f/u GI recs /Renal: HD ongoing, removing 2.5L of fluid ESRD on HD MWF f/u nephro recs ID: R BKA infection s/p debridement Bacteremia with serratia marcecens Merropenem per ID recs Endo: Hypothyroidism continue levothyroxine DM Insulin sliding scale- high Heme: hemorrhagic shock, d/t significant bleeding after R stump debridement Hgb stable for 24 hours Monitor H/H s/p 3u pRBC total Case seen, examined and discussed with attending physician, Dr. Linares <Adam Linares - Last Filed: 01/29/18 18:00> CCU Objective - Vital Signs / Intake & Output Vital Signs (Last 4 hours): Vital Signs Pulse Resp BP BP 01/29/18 16:00 107/32 L 01/29/18 15:19 85 10 L 01/29/18 15:18 82 10 L 01/29/18 15:17 83 10 L 01/29/18 15:16 84 10 L 01/29/18 15:15 85 9 L 01/29/18 15:14 87 12 01/29/18 15:13 85 11 L 01/29/18 15:12 88 12 01/29/18 15:11 88 19 01/29/18 15:10 81 12 01/29/18 15:09 87 15 01/29/18 15:08 87 10 L 01/29/18 15:07 82 01/29/18 15:06 87 15 01/29/18 15:05 88 15 01/29/18 15:04 87 10 L 01/29/18 15:03 88 12 01/29/18 15:02 87 11 L 01/29/18 15:01 85 11 L 01/29/18 15:00 85 12 117/37 L 01/29/18 14:59 86 11 L 117/35 L 01/29/18 14:58 86 11 L 01/29/18 14:57 87 18 01/29/18 14:56 84 15 01/29/18 14:55 84 11 L 01/29/18 14:54 86 9 L 01/29/18 14:53 88 14 01/29/18 14:52 88 15 01/29/18 14:51 84 15 01/29/18 14:50 87 10 L 01/29/18 14:49 87 11 L 01/29/18 14:48 86 11 L 01/29/18 14:47 84 11 L 01/29/18 14:46 84 11 L 01/29/18 14:45 84 11 L 01/29/18 14:44 86 11 L 01/29/18 14:43 86 11 L 01/29/18 14:42 84 12 01/29/18 14:41 86 9 L 01/29/18 14:40 88 11 L 01/29/18 14:39 88 9 L 01/29/18 14:38 88 12 01/29/18 14:37 88 9 L 01/29/18 14:36 86 13 01/29/18 14:35 87 14 01/29/18 14:34 89 15 01/29/18 14:33 86 10 L 01/29/18 14:32 86 13 01/29/18 14:31 86 10 L 01/29/18 14:30 87 16 Intake and Output (Last 8hrs): Intake & Output 01/29/18 01/29/18 01/29/18 06:59 14:59 22:59 Intake Total 335 Output Total 0 Balance 335 Weight 187 lb Intake: IV 335 Left Femoral 45 Right Upper arm 50 Output: Urine 0 Urine, Voided 0 - Medications Active Medications: Active Medications Generic Name Dose Route Start Last Admin Trade Name Freq PRN Reason Stop Dose Admin Acetaminophen 650 mg 01/22/18 22:48 01/25/18 18:44 Tylenol 325mg Tab PO 650 mg Q6H PRN Administration Pain, moderate (4-7) Albuterol/Ipratropium 3 ml 01/16/18 08:36 01/27/18 13:07 Duoneb 3 Mg/0.5 Mg (3 Ml) Ud IH 3 ml [id number] PRN Administration Shortness of Breath Arformoterol Tartrate 15 mcg 01/16/18 20:00 01/29/18 07:25 Brovana IH 15 mcg [id number] CARLOS Administration Aspirin 81 mg 01/30/18 10:00 Ecotrin PO DAILY CARLOS Atorvastatin Calcium 80 mg 01/24/18 08:03 01/28/18 22:32 Lipitor PO Not Given HS CARLOS Bacitracin 1 ea 01/29/18 18:00 Bacitracin TOP BID CARLOS Budesonide 0.5 mg 01/16/18 08:45 01/29/18 07:26 Pulmicort Respules IH 0.5 mg Q12H CARLOS Administration Collagenase 1 gm 01/16/18 15:45 01/29/18 15:02 Santyl TOP Not Given DAILY CARLOS Duloxetine HCl 40 mg 01/24/18 12:24 01/29/18 14:59 Cymbalta PO 40 mg DAILY CARLOS Administration Famotidine 20 mg 01/16/18 22:00 01/28/18 22:32 Pepcid PO Not Given HS CARLOS Fenofibrate 145 mg 01/16/18 10:00 01/29/18 14:59 Tricor PO 145 mg DAILY CARLOS Administration Fluticasone Propionate 1 actuation 01/16/18 08:36 Flonase NS DAILY PRN Nasal congestion Guaifenesin 600 mg 01/16/18 08:36 Mucinex La PO BID PRN Cough Heparin Sodium (Porcine) 5,000 units 01/16/18 22:00 01/26/18 15:40 Heparin SC Not Given Q12 CARLOS Protocol NOREPINEPHRINE BIT/0.9 % NACL 4 mg in 250 mls @ 15 mls/hr 01/27/18 18:51 01/29/18 00:05 Levophed 4 Mg/ 250 Ml Ns Premixed IV 2 mcg/min .[id number] PRN 7.5 mls/hr TITRATE PER MD ORDER Administration Protocol 4 MCG/MIN Meropenem/Sodium Chloride 500 mg in 50 mls @ 100 mls/hr 01/29/18 10:00 01/29/18 15:00 Merrem Iv 500 Mg/Ns 50 Ml IVPB 02/05/18 10:01 100 mls/hr Q12 CARLOS Administration Protocol Insulin Detemir 10 unit 01/23/18 22:00 01/28/18 22:33 Levemir SC Not Given HS CARLOS Insulin Human Regular 10 units 01/23/18 11:30 01/29/18 16:01 Humulin R SC Not Given AC CARLOS Insulin Human Regular 0 units 01/23/18 09:01 01/29/18 16:01 Humulin R High SC Not Given ACHS [facility] Protocol Latanoprost 0 ml 01/16/18 22:00 01/27/18 02:21 Xalatan Opht OU Not Given HS CARLOS Levothyroxine Sodium 50 mcg 01/18/18 06:00 01/29/18 06:58 Synthroid PO 50 mcg 0600 CARLOS Administration Metoprolol Tartrate 25 mg 01/16/18 10:00 01/29/18 14:59 Lopressor PO 25 mg BID CARLOS Administration Midodrine 5 mg 01/29/18 10:00 01/29/18 14:59 Proamatine PO 5 mg TID CARLOS Administration Ondansetron HCl 4 mg 01/29/18 11:28 01/29/18 11:58 Zofran Inj IVP 4 mg Q6H PRN Administration Nausea/Vomiting Oxycodone/Acetaminophen 1 tab 01/27/18 08:40 01/29/18 17:09 Percocet 5/325 Mg Tab PO 01/30/18 08:41 1 tab Q4H PRN Administration Pain, moderate (4-7) Sodium Chloride 0 ml 01/16/18 08:36 [place] Nasal [place] NS Q2 PRN nasal congestion. Ticagrelor 90 mg 01/16/18 10:00 01/29/18 15:03 Brilinta PO 90 mg BID CARLOS Administration Zaleplon 5 mg 01/23/18 22:00 01/28/18 22:39 Sonata PO Not Given HS CARLOS - Patient Studies Lab Studies: Microbiology Studies 01/28/18 14:45 S.aureus & Coag-Neg Staph PNA FISH - Preliminary Blood-Venous Blood Culture - Preliminary Gram Positive Cocci Gram Stain - Final 01/28/18 14:30 Blood Culture - Preliminary Blood-Venous NO GROWTH AFTER 24 HOURS 01/27/18 20:04 MRSA Culture (Admit) - Final Nose MRSA NOT DETECTED Lab Studies 01/29/18 01/29/18 01/29/18 Range/Units 09:00 07:00 05:30 WBC (4.5-11.0) 10^3/uL RBC (3.5-6.1) 10^6/uL Hgb (14.0-18.0) g/dL Hct (42.0-52.0) % MCV (80.0-105.0) fl MCH (25.0-35.0) pg MCHC (31.0-37.0) g/dl RDW (11.5-14.5) % Plt Count (120.0-450.0) 10^3/uL MPV (7.0-11.0) fl Gran % (50.0-68.0) % Lymph % (Auto) (22.0-35.0) % [place] % (Auto) (1.0-6.0) % Eos % (Auto) (1.5-5.0) % Baso % (Auto) (0.0-3.0) % Gran # (1.4-6.5) Lymph # (Auto) (1.2-3.4) [place] # (Auto) (0.1-0.6) Eos # (Auto) (0.0-0.7) Baso # (Auto) (0.0-2.0) K/mm3 Factor V pCO2 40 (35-45) mm/Hg pO2 150.0 H (80-100) mm/Hg HCO3 24.2 (21-28) mmol/L ABG pH 7.39 (7.35-7.45) ABG Total CO2 25.4 (22-28) mmol.L ABG O2 Saturation 99.1 H (95-98) % ABG O2 Content 12.5 L (15-23) ML/dl ABG Base Excess -0.7 (-2.0-3.0) mmol/L ABG Hemoglobin 8.9 L (11.7-17.4) g/dL ABG Carboxyhemoglobin 1.8 H (0.5-1.5) % POC ABG HHb (Measured) 0.9 (0-5) % ABG Methemoglobin 0.4 (0.0-3.0) % ABG O2 Capacity 12.6 L (16-24) mL/dl Hgb O2 Saturation 97.0 (95.0-98.0) % FiO2 32.0 % Sodium (132-148) mmol/L Potassium (3.6-5.0) mmol/L Chloride (98-107) mmol/L Carbon Dioxide (21-33) mmol/L Anion Gap (10-20) BUN (7-21) mg/dL Creatinine (0.8-1.5) mg/dl Est GFR ( Amer) Est GFR (Non-Af Amer) POC Glucose (mg/dL) (65-110) mg/dL Random Glucose (70-110) mg/dL Calcium (8.4-10.5) mg/dL Phosphorus (2.5-4.5) mg/dL Magnesium (1.7-2.2) mg/dL Total Bilirubin (0.2-1.3) mg/dL AST (17-59) U/L ALT (7-56) U/L Alkaline Phosphatase (38-126) U/L Troponin I 0.67 H* D ng/mL Total Protein (5.8-8.3) g/dL Albumin (3.0-4.8) g/dL Globulin gm/dL Albumin/Globulin Ratio (1.1-1.8) Procalcitonin 1.07 H (0.19-0.49) NG/ML 01/29/18 01/29/18 01/28/18 Range/Units 05:30 05:30 22:05 WBC 13.8 H (4.5-11.0) 10^3/uL RBC 3.07 L (3.5-6.1) 10^6/uL Hgb 9.4 L (14.0-18.0) g/dL Hct 28.2 L (42.0-52.0) % MCV 91.9 (80.0-105.0) fl MCH 30.6 (25.0-35.0) pg MCHC 33.3 (31.0-37.0) g/dl RDW 18.7 H (11.5-14.5) % Plt Count 102 L (120.0-450.0) 10^3/uL MPV 11.6 H (7.0-11.0) fl Gran % 83.2 H (50.0-68.0) % Lymph % (Auto) 8.5 L (22.0-35.0) % [place] % (Auto) 8.1 H (1.0-6.0) % Eos % (Auto) 0.1 L (1.5-5.0) % Baso % (Auto) 0.1 (0.0-3.0) % Gran # 11.45 H (1.4-6.5) Lymph # (Auto) 1.2 (1.2-3.4) [place] # (Auto) 1.1 H (0.1-0.6) Eos # (Auto) 0.0 (0.0-0.7) Baso # (Auto) 0.01 (0.0-2.0) K/mm3 Factor V pCO2 (35-45) mm/Hg pO2 (80-100) mm/Hg HCO3 (21-28) mmol/L ABG pH (7.35-7.45) ABG Total CO2 (22-28) mmol.L ABG O2 Saturation (95-98) % ABG O2 Content (15-23) ML/dl ABG Base Excess (-2.0-3.0) mmol/L ABG Hemoglobin (11.7-17.4) g/dL ABG Carboxyhemoglobin (0.5-1.5) % POC ABG HHb (Measured) (0-5) % ABG Methemoglobin (0.0-3.0) % ABG O2 Capacity (16-24) mL/dl Hgb O2 Saturation (95.0-98.0) % FiO2 % Sodium 139 (132-148) mmol/L Potassium 3.8 (3.6-5.0) mmol/L Chloride 102 (98-107) mmol/L Carbon Dioxide 28 (21-33) mmol/L Anion Gap 13 (10-20) BUN 36 H (7-21) mg/dL Creatinine 3.3 H (0.8-1.5) mg/dl Est GFR ( Amer) 24 Est GFR (Non-Af Amer) 20 POC Glucose (mg/dL) 91 (65-110) mg/dL Random Glucose 100 (70-110) mg/dL Calcium 8.0 L (8.4-10.5) mg/dL Phosphorus 5.4 H (2.5-4.5) mg/dL Magnesium 2.0 (1.7-2.2) mg/dL Total Bilirubin 1.7 H (0.2-1.3) mg/dL AST 140 H D (17-59) U/L ALT 56 (7-56) U/L Alkaline Phosphatase 179 H (38-126) U/L Troponin I ng/mL Total Protein 6.1 (5.8-8.3) g/dL Albumin 2.4 L (3.0-4.8) g/dL Globulin 3.7 gm/dL Albumin/Globulin Ratio 0.6 L (1.1-1.8) Procalcitonin (0.19-0.49) NG/ML 01/28/18 01/27/18 01/27/18 Range/Units 21:35 22:24 18:43 WBC (4.5-11.0) 10^3/uL RBC (3.5-6.1) 10^6/uL Hgb (14.0-18.0) g/dL Hct (42.0-52.0) % MCV (80.0-105.0) fl MCH (25.0-35.0) pg MCHC (31.0-37.0) g/dl RDW (11.5-14.5) % Plt Count (120.0-450.0) 10^3/uL MPV (7.0-11.0) fl Gran % (50.0-68.0) % Lymph % (Auto) (22.0-35.0) % [place] % (Auto) (1.0-6.0) % Eos % (Auto) (1.5-5.0) % Baso % (Auto) (0.0-3.0) % Gran # (1.4-6.5) Lymph # (Auto) (1.2-3.4) [place] # (Auto) (0.1-0.6) Eos # (Auto) (0.0-0.7) Baso # (Auto) (0.0-2.0) K/mm3 Factor V pCO2 (35-45) mm/Hg pO2 (80-100) mm/Hg HCO3 (21-28) mmol/L ABG pH (7.35-7.45) ABG Total CO2 (22-28) mmol.L ABG O2 Saturation (95-98) % ABG O2 Content (15-23) ML/dl ABG Base Excess (-2.0-3.0) mmol/L ABG Hemoglobin (11.7-17.4) g/dL ABG Carboxyhemoglobin (0.5-1.5) % POC ABG HHb (Measured) (0-5) % ABG Methemoglobin (0.0-3.0) % ABG O2 Capacity (16-24) mL/dl Hgb O2 Saturation (95.0-98.0) % FiO2 % Sodium (132-148) mmol/L Potassium (3.6-5.0) mmol/L Chloride (98-107) mmol/L Carbon Dioxide (21-33) mmol/L Anion Gap (10-20) BUN (7-21) mg/dL Creatinine (0.8-1.5) mg/dl Est GFR ( Amer) Est GFR (Non-Af Amer) POC Glucose (mg/dL) < 20 L* 217 H 188 H (65-110) mg/dL Random Glucose (70-110) mg/dL Calcium (8.4-10.5) mg/dL Phosphorus (2.5-4.5) mg/dL Magnesium (1.7-2.2) mg/dL Total Bilirubin (0.2-1.3) mg/dL AST (17-59) U/L ALT (7-56) U/L Alkaline Phosphatase (38-126) U/L Troponin I ng/mL Total Protein (5.8-8.3) g/dL Albumin (3.0-4.8) g/dL Globulin gm/dL Albumin/Globulin Ratio (1.1-1.8) Procalcitonin (0.19-0.49) NG/ML 01/27/18 01/27/18 01/27/18 Range/Units 16:28 11:31 08:18 WBC (4.5-11.0) 10^3/uL RBC (3.5-6.1) 10^6/uL Hgb (14.0-18.0) g/dL Hct (42.0-52.0) % MCV (80.0-105.0) fl MCH (25.0-35.0) pg MCHC (31.0-37.0) g/dl RDW (11.5-14.5) % Plt Count (120.0-450.0) 10^3/uL MPV (7.0-11.0) fl Gran % (50.0-68.0) % Lymph % (Auto) (22.0-35.0) % [place] % (Auto) (1.0-6.0) % Eos % (Auto) (1.5-5.0) % Baso % (Auto) (0.0-3.0) % Gran # (1.4-6.5) Lymph # (Auto) (1.2-3.4) [place] # (Auto) (0.1-0.6) Eos # (Auto) (0.0-0.7) Baso # (Auto) (0.0-2.0) K/mm3 Factor V pCO2 (35-45) mm/Hg pO2 (80-100) mm/Hg HCO3 (21-28) mmol/L ABG pH (7.35-7.45) ABG Total CO2 (22-28) mmol.L ABG O2 Saturation (95-98) % ABG O2 Content (15-23) ML/dl ABG Base Excess (-2.0-3.0) mmol/L ABG Hemoglobin (11.7-17.4) g/dL ABG Carboxyhemoglobin (0.5-1.5) % POC ABG HHb (Measured) (0-5) % ABG Methemoglobin (0.0-3.0) % ABG O2 Capacity (16-24) mL/dl Hgb O2 Saturation (95.0-98.0) % FiO2 % Sodium (132-148) mmol/L Potassium (3.6-5.0) mmol/L Chloride (98-107) mmol/L Carbon Dioxide (21-33) mmol/L Anion Gap (10-20) BUN (7-21) mg/dL Creatinine (0.8-1.5) mg/dl Est GFR ( Amer) Est GFR (Non-Af Amer) POC Glucose (mg/dL) 204 H 228 H 154 H (65-110) mg/dL Random Glucose (70-110) mg/dL Calcium (8.4-10.5) mg/dL Phosphorus (2.5-4.5) mg/dL Magnesium (1.7-2.2) mg/dL Total Bilirubin (0.2-1.3) mg/dL AST (17-59) U/L ALT (7-56) U/L Alkaline Phosphatase (38-126) U/L Troponin I ng/mL Total Protein (5.8-8.3) g/dL Albumin (3.0-4.8) g/dL Globulin gm/dL Albumin/Globulin Ratio (1.1-1.8) Procalcitonin (0.19-0.49) NG/ML 01/24/18 Range/Units 15:45 WBC (4.5-11.0) 10^3/uL RBC (3.5-6.1) 10^6/uL Hgb (14.0-18.0) g/dL Hct (42.0-52.0) % MCV (80.0-105.0) fl MCH (25.0-35.0) pg MCHC (31.0-37.0) g/dl RDW (11.5-14.5) % Plt Count (120.0-450.0) 10^3/uL MPV (7.0-11.0) fl Gran % (50.0-68.0) % Lymph % (Auto) (22.0-35.0) % [place] % (Auto) (1.0-6.0) % Eos % (Auto) (1.5-5.0) % Baso % (Auto) (0.0-3.0) % Gran # (1.4-6.5) Lymph # (Auto) (1.2-3.4) [place] # (Auto) (0.1-0.6) Eos # (Auto) (0.0-0.7) Baso # (Auto) (0.0-2.0) K/mm3 Factor V see note pCO2 (35-45) mm/Hg pO2 (80-100) mm/Hg HCO3 (21-28) mmol/L ABG pH (7.35-7.45) ABG Total CO2 (22-28) mmol.L ABG O2 Saturation (95-98) % ABG O2 Content (15-23) ML/dl ABG Base Excess (-2.0-3.0) mmol/L ABG Hemoglobin (11.7-17.4) g/dL ABG Carboxyhemoglobin (0.5-1.5) % POC ABG HHb (Measured) (0-5) % ABG Methemoglobin (0.0-3.0) % ABG O2 Capacity (16-24) mL/dl Hgb O2 Saturation (95.0-98.0) % FiO2 % Sodium (132-148) mmol/L Potassium (3.6-5.0) mmol/L Chloride (98-107) mmol/L Carbon Dioxide (21-33) mmol/L Anion Gap (10-20) BUN (7-21) mg/dL Creatinine (0.8-1.5) mg/dl Est GFR ( Amer) Est GFR (Non-Af Amer) POC Glucose (mg/dL) (65-110) mg/dL Random Glucose (70-110) mg/dL Calcium (8.4-10.5) mg/dL Phosphorus (2.5-4.5) mg/dL Magnesium (1.7-2.2) mg/dL Total Bilirubin (0.2-1.3) mg/dL AST (17-59) U/L ALT (7-56) U/L Alkaline Phosphatase (38-126) U/L Troponin I ng/mL Total Protein (5.8-8.3) g/dL Albumin (3.0-4.8) g/dL Globulin gm/dL Albumin/Globulin Ratio (1.1-1.8) Procalcitonin (0.19-0.49) NG/ML Laboratory Results - last 24 hr 01/24/18 01/27/18 01/27/18 15:45 08:18 11:31 WBC RBC Hgb Hct MCV MCH MCHC RDW Plt Count MPV Gran % Lymph % (Auto) [place] % (Auto) Eos % (Auto) Baso % (Auto) Gran # Lymph # (Auto) [place] # (Auto) Eos # (Auto) Baso # (Auto) Factor V see note pCO2 pO2 HCO3 ABG pH ABG Total CO2 ABG O2 Saturation ABG O2 Content ABG Base Excess ABG Hemoglobin ABG Carboxyhemoglobin POC ABG HHb (Measured) ABG Methemoglobin ABG O2 Capacity Hgb O2 Saturation FiO2 Sodium Potassium Chloride Carbon Dioxide Anion Gap BUN Creatinine Est GFR ( Amer) Est GFR (Non-Af Amer) POC Glucose (mg/dL) 154 H 228 H Random Glucose Calcium Phosphorus Magnesium Total Bilirubin AST ALT Alkaline Phosphatase Troponin I Total Protein Albumin Globulin Albumin/Globulin Ratio Procalcitonin 01/27/18 01/27/18 01/27/18 16:28 18:43 22:24 WBC RBC Hgb Hct MCV MCH MCHC RDW Plt Count MPV Gran % Lymph % (Auto) [place] % (Auto) Eos % (Auto) Baso % (Auto) Gran # Lymph # (Auto) [place] # (Auto) Eos # (Auto) Baso # (Auto) Factor V pCO2 pO2 HCO3 ABG pH ABG Total CO2 ABG O2 Saturation ABG O2 Content ABG Base Excess ABG Hemoglobin ABG Carboxyhemoglobin POC ABG HHb (Measured) ABG Methemoglobin ABG O2 Capacity Hgb O2 Saturation FiO2 Sodium Potassium Chloride Carbon Dioxide Anion Gap BUN Creatinine Est GFR ( Amer) Est GFR (Non-Af Amer) POC Glucose (mg/dL) 204 H 188 H 217 H Random Glucose Calcium Phosphorus Magnesium Total Bilirubin AST ALT Alkaline Phosphatase Troponin I Total Protein Albumin Globulin Albumin/Globulin Ratio Procalcitonin 01/28/18 01/28/18 01/29/18 21:35 22:05 05:30 WBC 13.8 H RBC 3.07 L Hgb 9.4 L Hct 28.2 L MCV 91.9 MCH 30.6 MCHC 33.3 RDW 18.7 H Plt Count 102 L MPV 11.6 H Gran % 83.2 H Lymph % (Auto) 8.5 L [place] % (Auto) 8.1 H Eos % (Auto) 0.1 L Baso % (Auto) 0.1 Gran # 11.45 H Lymph # (Auto) 1.2 [place] # (Auto) 1.1 H Eos # (Auto) 0.0 Baso # (Auto) 0.01 Factor V pCO2 pO2 HCO3 ABG pH ABG Total CO2 ABG O2 Saturation ABG O2 Content ABG Base Excess ABG Hemoglobin ABG Carboxyhemoglobin POC ABG HHb (Measured) ABG Methemoglobin ABG O2 Capacity Hgb O2 Saturation FiO2 Sodium Potassium Chloride Carbon Dioxide Anion Gap BUN Creatinine Est GFR ( Amer) Est GFR (Non-Af Amer) POC Glucose (mg/dL) < 20 L* 91 Random Glucose Calcium Phosphorus Magnesium Total Bilirubin AST ALT Alkaline Phosphatase Troponin I Total Protein Albumin Globulin Albumin/Globulin Ratio Procalcitonin 01/29/18 01/29/18 01/29/18 05:30 05:30 07:00 WBC RBC Hgb Hct MCV MCH MCHC RDW Plt Count MPV Gran % Lymph % (Auto) [place] % (Auto) Eos % (Auto) Baso % (Auto) Gran # Lymph # (Auto) [place] # (Auto) Eos # (Auto) Baso # (Auto) Factor V pCO2 pO2 HCO3 ABG pH ABG Total CO2 ABG O2 Saturation ABG O2 Content ABG Base Excess ABG Hemoglobin ABG Carboxyhemoglobin POC ABG HHb (Measured) ABG Methemoglobin ABG O2 Capacity Hgb O2 Saturation FiO2 Sodium 139 Potassium 3.8 Chloride 102 Carbon Dioxide 28 Anion Gap 13 BUN 36 H Creatinine 3.3 H Est GFR ( Amer) 24 Est GFR (Non-Af Amer) 20 POC Glucose (mg/dL) Random Glucose 100 Calcium 8.0 L Phosphorus 5.4 H Magnesium 2.0 Total Bilirubin 1.7 H AST 140 H D ALT 56 Alkaline Phosphatase 179 H Troponin I 0.67 H* D Total Protein 6.1 Albumin 2.4 L Globulin 3.7 Albumin/Globulin Ratio 0.6 L Procalcitonin 1.07 H 01/29/18 09:00 WBC RBC Hgb Hct MCV MCH MCHC RDW Plt Count MPV Gran % Lymph % (Auto) [place] % (Auto) Eos % (Auto) Baso % (Auto) Gran # Lymph # (Auto) [place] # (Auto) Eos # (Auto) Baso # (Auto) Factor V pCO2 40 pO2 150.0 H HCO3 24.2 ABG pH 7.39 ABG Total CO2 25.4 ABG O2 Saturation 99.1 H ABG O2 Content 12.5 L ABG Base Excess -0.7 ABG Hemoglobin 8.9 L ABG Carboxyhemoglobin 1.8 H POC ABG HHb (Measured) 0.9 ABG Methemoglobin 0.4 ABG O2 Capacity 12.6 L Hgb O2 Saturation 97.0 FiO2 32.0 Sodium Potassium Chloride Carbon Dioxide Anion Gap BUN Creatinine Est GFR ( Amer) Est GFR (Non-Af Amer) POC Glucose (mg/dL) Random Glucose Calcium Phosphorus Magnesium Total Bilirubin AST ALT Alkaline Phosphatase Troponin I Total Protein Albumin Globulin Albumin/Globulin Ratio Procalcitonin EKG/Cardiology Studies: Cardiology / EKG Studies 01/29/18 10:35 EKG [ELECTROCARDIOGRAM] Stat Comment: Reason For Exam: SOB Critical Care Progress Note - Nutrition Nutrition: Nutrition Category Date Time Status Renal Diet [DIET] Diets 01/23/18 Dinner Ordered Attending/Attestation - Attestation I have personally seen and examined this patient.: Yes I have fully participated in the care of the patient.: Yes I have reviewed all pertinent clinical information: Yes Notes (Text): 01/29/18 18:[address] Linares note
[2018-01-29] MEDS: Bacitracin 500 Units/gm Oint Foilpak UD TOP SCH (14:58)
[2018-01-29] MEDS: MEROPENEM 500 MG in NS 500 MG/50 ML BAG IVPB SCH ×2 (15:00→22:00)
[2018-01-29] MEDS: Collagenase 250 Units/gm Ointment(30 gm) TOP SCH ×2 (15:02→18:03)
[2018-01-29] MEDS: Oxycodone/Acetaminophen 5/325 mg Tab PO PRN ×2 (17:09→21:23)
--- NOTE | 2018-01-29 17:35 | PN ---
DATE: 01/29/2018 REASON FOR CONSULTATION AND FOLLOWUP: Coronary artery disease, cardiac evaluation and followup. Lying flat in the bed in ICU. SUBJECTIVE: Denies any chest pain, shortness of breath, or any palpitations. PHYSICAL EXAMINATION: GENERAL: Not in any apparent distress. VITAL SIGNS: Temperature afebrile, heart rate 82, blood pressure 127/86. HEENT: PERRLA. Extraocular muscles intact. NECK: Supple. No carotid bruits or thyromegaly. CHEST: Clear to auscultation. HEART: S1 and S2, regular. ABDOMEN: Soft. EXTREMITIES: Clubbing and cyanosis negative. LABORATORY DATA: Blood workup: WBC 13.8, hemoglobin 9.5, hematocrit 28.2, platelet count 102. Chemistry shows sodium 130, potassium 3.8, chloride 102, carbon dioxide 29, anion gap 13, BUN 36, creatinine 3.3. IMPRESSION: A 52-year-old male with past medical history significant for coronary artery disease, status post stent in the past; history of pacemaker, dual-chamber, MRI safe; history of amputation; severe peripheral arterial disease, status post right below-knee amputation and history of amputation left finger who has nonhealing ulcers. Recently revision of right below-knee amputation wound was done, which was complicated by later on bleeding from this. Dropped hemoglobin, had a rapid response, moved to ICU. Now the patient is currently in ICU requiring 3 units of packed red blood cell after having cleaning of the stump. Patient was seen in the morning. Now the nurse called me and the resident that the patient with chest pain. Chest stat CT was done that shows large bilateral pleural effusion, passive atelectasis at the bases consistent with a congestive heart failure. Patient also complained of chest pain. EKG was done, essentially no change in the EKG, but troponin less than 0.67. 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 No acute ST elevation. We will talk to the family about the patient's condition. Overall, the patient's condition is gradually deteriorating, downhill course. Multiple comorbidity. We will discuss with the family. In the interim, continue current medication including Brilinta 90 mg twice daily, continue DVT prophylaxis, continue insulin, continue atorvastatin, continue metoprolol, continue baby aspirin. We will start baby aspirin, probably it was held for revision and never restarted, but we will start dose of baby aspirin now and start 81 mg from tomorrow. We will call the family and inform about the patient's status. Repeat serial CPK, troponin and the next troponin in the morning. Thank you, Dr. Potter, for providing us the opportunity in taking care of the patient, Jason Berger. Jarred Erickson MD
[2018-01-29] MEDS ORDERED: Bacitracin 500 Units/gm Oint Foilpak UD TOP SCH (18:00)
--- NOTE | 2018-01-29 18:18 | PN ---
DATE: 01/29/2018 The patient was seen status post debridement of the right stump. There was some bleeding at the site. This bleeding has slowed down and almost stopped using compression and local care. She had a significant bleed. I spoke to Dr. Davis. He is willing to do the drill on the left hand, and the left hand needs further debridement. The real issue right now is on the right side, the right pinky finger is ischemic, and will probably auto-amputate. We will discuss for now. Medardo Urrutia MD
[2018-01-29] MEDS: Insulin Detemir 100 units/ml Vial (Levemir) SC SCH (21:22)
[2018-01-29] MEDS: Latanoprost 2.5 ml Opht Soln OU SCH (21:23)
--- NOTE | 2018-01-29 23:21 | PN ---
DATE: 01/29/2018 PULMONARY CRITICAL CARE PROGRESS NOTE REFERRING PHYSICIAN: Dr. Gallo Potter SUBJECTIVE: The patient is lying in the bed, head at 45 degrees, having dialysis done. Has some shortness of breath. Denied any chest pain. No vomiting. No hematuria. No more bleeding from the right stump. Has a right fifth digit gangrene. OBJECTIVE: GENERAL: [id number] distress. VITAL SIGNS: Temperature is 98, heart rate 76, respiratory rate is 16, blood pressure 116/48, this is on Levophed while getting dialysis. HEENT: Moist mucous membrane. Crowded airway. Mallampati score is 4. NECK: Supple. No JVD. LUNGS: Have decreased breath sounds, left lung with crackles. HEART: S1 and S2. ABDOMEN: Soft, nontender, no organomegaly. EXTREMITIES: Right lower extremity has BKA, wound is covered by the dressing. Left leg trace edema. Has ischemic fifth digit in the right hand, has third digit amputated in the left hand. NEUROLOGICAL: Awake, alert but confused. MEDICATIONS: He is on Brilinta 90 mg twice a day which is on hold, Brovana inhaled twice a day, Cymbalta 40 mg daily, DuoNeb every 6 hours p.r.n., Ecotrin 81 mg daily, Flonase once to each nostril daily, heparin 5000 units subcu every12 hours, insulin coverage, Levemir 10 units subcu at bedtime, he is on Levophed, Lipitor 80 mg daily, metoprolol tartrate 25 mg twice a day, meropenem is 500 mg every12 hours, Mucinex [place] 600 mg twice a day, Pepcid 20 mg at bedtime, Percocet 5/325 one tab every 4 hours p.r.n. midodrine 5 mg three times a day, Pulmicort inhaled twice a day, Santyl 1 g topically, Sonata 5 mg at bedtime, Synthroid 50 mcg daily, Tricor 140 mcg daily, Tylenol p.r.n., Xalatan ophthalmic solution both eyes, Zofran 4 mg every six hours. LABORATORY DATA: Shows hemoglobin 9.4, hematocrit 28.2, WBC 13.8, platelet count is 102. ABG shows pH 7.39, pCO2 of 40, O2 of 150, that is on supplemental oxygen. Sodium 139, potassium 3.8, chloride 102, bicarbonate 28, BUN 36, creatinine 3.3, glucose 100, calcium 8, phosphorus 5.4, magnesium 2, total bili 1.7, AST 140, ALT 56, alk phos is 179. ProBNP less than 0.67. Albumin 2.4. Folate is 1.07. The blood culture done yesterday does have Staph gram-positive cocci, 1 out of [address] scan of the chest done today, shows large bilateral pleural effusion, passive atelectasis at the lung bases consistent with heart failure. No pulmonary embolus. IMPRESSION AND PLAN: Hemorrhagic shock requiring multi-unit transfusion, also requires platelets; renal failure, dialysis dependent; bilateral pleural effusion; chronic obstructive lung disease; coronary artery disease, history of coronary stent; cardiac arrhythmia, requiring pacemaker; sleep apnea syndrome, noncompliant with CPAP/BiPAP; peripheral vascular disease, has right below-knee amputation; ischemic fingers with right hand fifth digit gangrene and left hand third finger been amputated. Pulmonary point of view, doing okay. Encourage BiPAP use. Keep head at 45 degrees. Gastric prophylaxis. Infectious Diseases followup. We will continue inhaled bronchodilator. Sleep apnea precaution. We will send his cortisol level in the morning. In the past, he had been on steroids for many years. Follow up ABG, chest x-ray, CBC, CMP in the morning. Critical care time of 35 minutes. Thank you and we will follow with you. Jarred Escalera MD
--- NOTE | 2018-01-29 23:36 | CP.PCM.PN ---
Subjective - Date & Time of Evaluation Date of Evaluation: 01/29/18 Time of Evaluation: 20:00 - Subjective Subjective: Weak but feeling better. Objective - Vital Signs/Intake and Output Vital Signs (last 24 hours): Temp Pulse Resp BP Pulse Ox 98.2 F 76 15 116/48 L 100 01/29/18 12:00 01/29/18 19:02 01/29/18 19:02 01/29/18 18:00 01/28/18 00:00 Intake and Output: 01/29/18 01/30/18 18:59 06:59 Intake Total 480 Output Total 2800 Balance -2320 - Medications Medications: Current Medications Acetaminophen (Tylenol 325mg Tab) 650 mg PO Q6H PRN PRN Reason: Pain, moderate (4-7) Last Admin: 01/25/18 18:44 Dose: 650 mg Albuterol/Ipratropium (Duoneb 3 Mg/0.5 Mg (3 Ml) Ud) 3 ml IH [id number] PRN PRN Reason: Shortness of Breath Last Admin: 01/27/18 13:07 Dose: 3 ml Arformoterol Tartrate (Brovana) 15 mcg IH [id number] [facility] Last Admin: 01/29/18 20:21 Dose: 15 mcg Aspirin (Ecotrin) 81 mg PO DAILY [facility] Atorvastatin Calcium (Lipitor) 80 mg PO HS [facility] Last Admin: 01/29/18 21:22 Dose: 80 mg Budesonide (Pulmicort Respules) 0.5 mg IH Q12H [facility] Last Admin: 01/29/18 20:21 Dose: 0.5 mg Collagenase (Santyl) 1 gm TOP DAILY [facility] Last Admin: 01/29/18 18:03 Dose: 1 applic Duloxetine HCl (Cymbalta) 40 mg PO DAILY [facility] Last Admin: 01/29/18 14:59 Dose: 40 mg Famotidine (Pepcid) 20 mg PO HS [facility] Last Admin: 01/28/18 22:32 Dose: Not Given Fenofibrate (Tricor) 145 mg PO DAILY [facility] Last Admin: 01/29/18 14:59 Dose: 145 mg Fluticasone Propionate (Flonase) 1 actuation NS DAILY PRN PRN Reason: Nasal congestion Guaifenesin (Mucinex La) 600 mg PO BID PRN PRN Reason: Cough Heparin Sodium (Porcine) (Heparin) 5,000 units SC Q12 [facility]; Protocol Last Admin: 01/26/18 15:40 Dose: Not Given NOREPINEPHRINE BIT/0.9 % NACL (Levophed 4 Mg/ 250 Ml Ns Premixed) 4 mg in 250 mls @ 15 mls/hr IV .[id number] PRN; Protocol PRN Reason: TITRATE PER MD ORDER Last Titration: 01/29/18 14:00 Dose: 0 mcg/min, 0 mls/hr Meropenem/Sodium Chloride (Merrem Iv 500 Mg/Ns 50 Ml) 500 mg in 50 mls @ 100 mls/hr IVPB Q12 [facility]LOS; Protocol Stop: 02/05/18 10:01 Last Admin: 01/29/18 15:00 Dose: 100 mls/hr Insulin Detemir (Levemir) 10 unit SC HS [facility] Last Admin: 01/29/18 21:22 Dose: 10 unit Insulin Human Regular (Humulin R) 10 units SC AC [facility] Last Admin: 01/29/18 16:01 Dose: Not Given Insulin Human Regular (Humulin R High) 0 units SC ACHS [facility]; Protocol Last Admin: 01/29/18 21:21 Dose: Not Given Latanoprost (Xalatan Opht) 0 ml OU HS [facility] Last Admin: 01/29/18 21:23 Dose: Not Given Levothyroxine Sodium (Synthroid) 50 mcg PO 0600 [facility] Last Admin: 01/29/18 06:58 Dose: 50 mcg Metoprolol Tartrate (Lopressor) 25 mg PO BID [facility] Last Admin: 01/29/18 14:59 Dose: 25 mg Midodrine (Proamatine) 5 mg PO TID [facility] Last Admin: 01/29/18 21:22 Dose: 5 mg Ondansetron HCl (Zofran Inj) 4 mg IVP Q6H PRN PRN Reason: Nausea/Vomiting Last Admin: 01/29/18 11:58 Dose: 4 mg Oxycodone/Acetaminophen (Percocet 5/325 Mg Tab) 1 tab PO Q4H PRN PRN Reason: Pain, moderate (4-7) Stop: 01/30/18 08:41 Last Admin: 01/29/18 21:23 Dose: 1 tab Sodium Chloride ([place] Nasal [place]) 0 ml NS Q2 PRN PRN Reason: nasal congestion. Ticagrelor (Brilinta) 90 mg PO BID [facility] Last Admin: 01/29/18 15:03 Dose: 90 mg Zaleplon (Sonata) 5 mg PO [facility] Last Admin: 01/29/18 21:22 Dose: 5 mg - Labs Labs: 01/29/18 05:30 01/29/18 05:30 PT 20.6 SECONDS (9.4-12.5) H 01/23/18 08:50 INR 1.77 01/23/18 08:50 APTT 33.8 Seconds (25.1-36.5) 01/23/18 08:50 - Head Exam Head Exam: ATRAUMATIC - Eye Exam Eye Exam: Normal appearance - ENT Exam ENT Exam: Mucous Membranes Dry - Respiratory Exam Respiratory Exam: NORMAL BREATHING PATTERN - Cardiovascular Exam Cardiovascular Exam: +S1, +S2 - GI/Abdominal Exam GI & Abdominal Exam: Normal Bowel Sounds Assessment and Plan (1) Hypercoagulable state Assessment & Plan: noted slightly diminished protein S activity; may be low due recent bleeding/clotting on dual antiplatelet therapy Status: Acute (2) Thrombocytopenia Assessment & Plan: mild improved from prior HIV and hepatitis B/C negative antiphospholipid Ab panel negative Status: Acute (3) Anemia Assessment & Plan: anemia of CKD anemia of chronic disease right LE stump bleeding transfusion support PRN Status: Acute (4) Leukocytosis Assessment & Plan: improving with antibiotics Status: Acute (5) Coagulopathy Assessment & Plan: repeat mixing study pending prior study corrected suggesting factor deficiency/nutritional coagulopathy Status: Acute
[2018-01-30] MEDS: Oxycodone/Acetaminophen 5/325 mg Tab PO PRN ×2 (04:06→11:21)
[2018-01-30 05:42] LABS: BASO # 0.01 K/mm3 (0.0-2.0); BASO % 0.1 % (0.0-3.0); EOS % 0.1 % (1.5-5.0); GRAN # 14.16 (1.4-6.5); GRAN % 84.2 % (50.0-68.0); LYMPH # 1.1 (1.2-3.4); LYMPH % 6.5 % (22.0-35.0); MEAN CELL VOLUME 94.2 fl (80.0-105.0); MEAN CORPUSCULAR HEMOGLOBIN 30.8 pg (25.0-35.0); MEAN CORPUSCULAR HGB CONC 32.7 g/dl (31.0-37.0); MEAN PLATELET VOLUME 11.4 fl (7.0-11.0); MONO # 1.5 (0.1-0.6); MONO % 9.1 % (1.0-6.0); RBC 2.92 10^6/uL (3.5-6.1); RED CELL DISTRIBUTION WIDTH 18.8 % (11.5-14.5); WHITE BLOOD COUNT 16.8 10^3/uL (4.5-11.0)
[2018-01-30] MEDS: Levothyroxine 25 MCG TAB PO SCH (06:16)
[2018-01-30 06:40] LABS: ALB/GLOB RATIO 0.6 (1.1-1.8); ALBUMIN 2.1 g/dL (3.0-4.8); CALCIUM 7.6 mg/dL (8.4-10.5); TROPONIN I 0.45 ng/mL
--- NOTE | 2018-01-30 06:49 | CP.PCM.PN ---
<Lolis Rivas - Last Filed: 01/30/18 10:42> Subjective - Date & Time of Evaluation Date of Evaluation: 01/30/18 Time of Evaluation: 07:00 - Subjective Subjective: Infectious Disease Progress Note for Simon Zepeda PGY3 Patient seen and examined at bedside. Patient reports feeling SOB this AM. He is getting breathing treatment and 98% on nasal cannula and is breathing at rate of 10 without use of accessory muscles. Objective - Vital Signs/Intake and Output Vital Signs (last 24 hours): Temp Pulse Resp BP Pulse Ox 98.2 F 81 15 116/48 L 100 01/29/18 12:00 01/29/18 22:00 01/29/18 19:02 01/29/18 18:00 01/28/18 00:00 Intake and Output: 01/29/18 01/30/18 18:59 06:59 Intake Total 480 Output Total 2800 Balance -2320 - Medications Medications: Current Medications Acetaminophen (Tylenol 325mg Tab) 650 mg PO Q6H PRN PRN Reason: Pain, moderate (4-7) Last Admin: 01/25/18 18:44 Dose: 650 mg Albuterol/Ipratropium (Duoneb 3 Mg/0.5 Mg (3 Ml) Ud) 3 ml IH [id number] PRN PRN Reason: Shortness of Breath Last Admin: 01/27/18 13:07 Dose: 3 ml Arformoterol Tartrate (Brovana) 15 mcg IH [id number] [facility] Last Admin: 01/29/18 20:21 Dose: 15 mcg Aspirin (Ecotrin) 81 mg PO DAILY [facility] Atorvastatin Calcium (Lipitor) 80 mg PO HS [facility] Last Admin: 01/29/18 21:22 Dose: 80 mg Budesonide (Pulmicort Respules) 0.5 mg IH Q12H [facility] Last Admin: 01/29/18 20:21 Dose: 0.5 mg Collagenase (Santyl) 1 gm TOP DAILY [facility] Last Admin: 01/29/18 18:03 Dose: 1 applic Duloxetine HCl (Cymbalta) 40 mg PO DAILY [facility] Last Admin: 01/29/18 14:59 Dose: 40 mg Famotidine (Pepcid) 20 mg PO HS [facility] Last Admin: 01/29/18 22:06 Dose: 20 mg Fenofibrate (Tricor) 145 mg PO DAILY [facility] Last Admin: 01/29/18 14:59 Dose: 145 mg Fluticasone Propionate (Flonase) 1 actuation NS DAILY PRN PRN Reason: Nasal congestion Guaifenesin (Mucinex La) 600 mg PO BID PRN PRN Reason: Cough Heparin Sodium (Porcine) (Heparin) 5,000 units SC Q12 [facility]; Protocol Last Admin: 01/26/18 15:40 Dose: Not Given NOREPINEPHRINE BIT/0.9 % NACL (Levophed 4 Mg/ 250 Ml Ns Premixed) 4 mg in 250 mls @ 15 mls/hr IV .[id number] PRN; Protocol PRN Reason: TITRATE PER MD ORDER Last Titration: 01/29/18 14:00 Dose: 0 mcg/min, 0 mls/hr Meropenem/Sodium Chloride (Merrem Iv 500 Mg/Ns 50 Ml) 500 mg in 50 mls @ 100 mls/hr IVPB Q12 [facility]; Protocol Stop: 02/05/18 10:01 Last Admin: 01/29/18 22:00 Dose: 100 mls/hr Insulin Detemir (Levemir) 10 unit SC HS [facility] Last Admin: 01/29/18 21:22 Dose: 10 unit Insulin Human Regular (Humulin R) 10 units SC AC [facility] Last Admin: 01/29/18 16:01 Dose: Not Given Insulin Human Regular (Humulin R High) 0 units SC ACHS [facility]; Protocol Last Admin: 01/29/18 21:21 Dose: Not Given Latanoprost (Xalatan Opht) 0 ml OU HS [facility] Last Admin: 01/29/18 21:23 Dose: Not Given Levothyroxine Sodium (Synthroid) 50 mcg PO 0600 [facility] Last Admin: 01/30/18 06:16 Dose: 50 mcg Metoprolol Tartrate (Lopressor) 25 mg PO BID [facility] Last Admin: 01/29/18 14:59 Dose: 25 mg Midodrine (Proamatine) 5 mg PO TID [facility] Last Admin: 01/29/18 21:22 Dose: 5 mg Ondansetron HCl (Zofran Inj) 4 mg IVP Q6H PRN PRN Reason: Nausea/Vomiting Last Admin: 01/29/18 11:58 Dose: 4 mg Oxycodone/Acetaminophen (Percocet 5/325 Mg Tab) 1 tab PO Q4H PRN PRN Reason: Pain, moderate (4-7) Stop: 01/30/18 08:41 Last Admin: 01/30/18 04:06 Dose: 1 tab Sodium Chloride ([place] Nasal [place]) 0 ml NS Q2 PRN PRN Reason: nasal congestion. Ticagrelor (Brilinta) 90 mg PO BID [facility] Last Admin: 01/29/18 15:03 Dose: 90 mg Zaleplon (Sonata) 5 mg PO HS [facility] Last Admin: 01/29/18 21:22 Dose: 5 mg - Labs Labs: 01/30/18 05:31 01/30/18 05:31 PT 20.6 SECONDS (9.4-12.5) H 01/23/18 08:50 INR 1.77 01/23/18 08:50 APTT 33.8 Seconds (25.1-36.5) 01/23/18 08:50 - Constitutional Appears: No Acute Distress, Chronically Ill - Head Exam Head Exam: ATRAUMATIC, NORMAL INSPECTION, NORMOCEPHALIC - Eye Exam Eye Exam: Normal appearance, PERRL Pupil Exam: NORMAL ACCOMODATION, PERRL - ENT Exam ENT Exam: Mucous Membranes Moist - Respiratory Exam Respiratory Exam: Wheezes, NORMAL BREATHING PATTERN. absent: Accessory Muscle Use, Rales, Rhonchi, Respiratory Distress - Cardiovascular Exam Cardiovascular Exam: REGULAR RHYTHM, +S1, +S2. absent: Gallop, Rubs, Murmur - GI/Abdominal Exam GI & Abdominal Exam: Soft, Normal Bowel Sounds. absent: Rigid, Tenderness, Mass, Rebound - Extremities Exam Additional comments: R leg stump wound vac in place- sanginous drainage R pinky finger necrotic - Neurological Exam Neurological Exam: Alert, Awake, CN II-XII Intact - Psychiatric Exam Psychiatric exam: Normal Affect, Normal Mood - Skin Skin Exam: Dry, Warm Assessment and Plan - Assessment and Plan (Free Text) Assessment: 1. Sepsis - secondary to R stump cellulitis s/p debridement - Positive for Serratia Bacteremia 2. R TMA stump gangrene 3. LLE pleural effusion v. pneumonia 4. Hx of Guerline glabrata fungemia 5. Hx of bilateral HCAP 6. Hx of sepsis secondary to C.diff 7. ESRD on HD 8. DM 9. CAD s/p PCI 10. Diabetic retinopathy 11. Obesity 12. Hx of pancreatitis Plan: One repeat BC + for Enterococcus. Will await final results to rule out VRE. Today is day #13 out of 14 days of Merrem. Will d/c Vancomycin and start Daptomycin q48hrs. CT chest showed bilateral LL effusions. Also seen on CXR. Continue wound care. Prognosis is poor. Case seen, discussed and reviewed with Dr. Neli Rivas PGY3 <Pj Quinteros - Last Filed: 01/30/18 19:38> Objective - Vital Signs/Intake and Output Vital Signs (last 24 hours): Temp Pulse Resp BP Pulse Ox 98.2 F 78 16 99/45 L 93 L 01/29/18 12:00 01/30/18 17:33 01/30/18 17:33 01/30/18 18:10 01/30/18 17:30 Intake and Output: 01/30/18 01/31/18 18:59 06:59 Intake Total 390 Output Total 0 Balance 390 - Medications Medications: Current Medications Acetaminophen (Tylenol 325mg Tab) 650 mg PO Q6H PRN PRN Reason: Pain, Mild (1-3) Albuterol/Ipratropium (Duoneb 3 Mg/0.5 Mg (3 Ml) Ud) 3 ml IH [id number] PRN PRN Reason: Shortness of Breath Last Admin: 01/27/18 13:07 Dose: 3 ml Arformoterol Tartrate (Brovana) 15 mcg IH [id number] [facility] Last Admin: 01/30/18 07:44 Dose: 15 mcg Aspirin (Ecotrin) 81 mg PO DAILY [facility] Last Admin: 01/30/18 11:03 Dose: 81 mg Atorvastatin Calcium (Lipitor) 80 mg PO HS [facility] Last Admin: 01/29/18 21:22 Dose: 80 mg Budesonide (Pulmicort Respules) 0.5 mg IH Q12H [facility] Last Admin: 01/30/18 07:44 Dose: 0.5 mg Collagenase (Santyl) 1 gm TOP DAILY [facility] Last Admin: 01/30/18 13:14 Dose: Not Given Duloxetine HCl (Cymbalta) 40 mg PO DAILY [facility] Last Admin: 01/30/18 11:03 Dose: 40 mg Famotidine (Pepcid) 20 mg PO HS [facility] Last Admin: 11/12/18 22:06 Dose: 20 mg Fenofibrate (Tricor) 145 mg PO DAILY [facility] Last Admin: 01/30/18 11:05 Dose: 145 mg Fluticasone Propionate (Flonase) 1 actuation NS DAILY PRN PRN Reason: Nasal congestion Guaifenesin (Mucinex La) 600 mg PO BID PRN PRN Reason: Cough Heparin Sodium (Porcine) (Heparin) 5,000 units SC Q12 [facility]; Protocol Last Admin: 01/26/18 15:40 Dose: Not Given NOREPINEPHRINE BIT/0.9 % NACL (Levophed 4 Mg/ 250 Ml Ns Premixed) 4 mg in 250 mls @ 15 mls/hr IV .[id number] PRN; Protocol PRN Reason: TITRATE PER MD ORDER Last Titration: 01/29/18 14:00 Dose: 0 mcg/min, 0 mls/hr Meropenem/Sodium Chloride (Merrem Iv 500 Mg/Ns 50 Ml) 500 mg in 50 mls @ 100 mls/hr IVPB Q12 [facility]; Protocol Stop: 02/05/18 10:01 Last Admin: 01/30/18 11:04 Dose: 100 mls/hr Daptomycin 700 mg/ Sodium (Chloride) 100 mls @ 200 mls/hr IV QOTHERDAY [facility] Stop: 02/06/18 10:01 Last Admin: 01/30/18 13:00 Dose: 200 mls/hr Insulin Detemir (Levemir) 10 unit SC HS [facility] Last Admin: 01/29/18 21:22 Dose: 10 unit Insulin Human Regular (Humulin R High) 0 units SC ACHS [facility]; Protocol Last Admin: 01/30/18 16:30 Dose: Not Given Insulin Human Regular (Humulin R) 5 units SC AC [facility] Last Admin: 01/30/18 16:30 Dose: Not Given Latanoprost (Xalatan Opht) 0 ml OU HS [facility] Last Admin: 01/29/18 21:23 Dose: Not Given Levothyroxine Sodium (Synthroid) 50 mcg PO 0600 [facility] Last Admin: 01/30/18 06:16 Dose: 50 mcg Metoprolol Tartrate (Lopressor) 25 mg PO BID [facility] Last Admin: 01/30/18 18:10 Dose: Not Given Midodrine (Proamatine) 5 mg PO TID [facility] Last Admin: 01/30/18 18:11 Dose: Not Given Ondansetron HCl (Zofran Inj) 4 mg IVP Q6H PRN PRN Reason: Nausea/Vomiting Last Admin: 01/29/18 11:58 Dose: 4 mg Oxycodone/Acetaminophen (Percocet 5/325 Mg Tab) 1 tab PO Q4H PRN PRN Reason: Pain, moderate (4-7) Stop: 02/02/18 11:08 Last Admin: 01/30/18 11:21 Dose: 1 tab Sodium Chloride ([place] Nasal [place]) 0 ml NS Q2 PRN PRN Reason: nasal congestion. Ticagrelor (Brilinta) 90 mg PO BID [facility] Last Admin: 01/29/18 15:03 Dose: 90 mg Zaleplon (Sonata) 5 mg PO HS [facility] Last Admin: 01/29/18 21:22 Dose: 5 mg - Labs Labs: 01/30/18 05:31 01/30/18 05:31 PT 18.7 sec (9.0-11.5) H 01/25/18 09:00 INR 1.77 01/23/18 08:50 APTT 33.8 Seconds (25.1-36.5) 01/23/18 08:50 Assessment and Plan - Assessment and Plan (Free Text) Plan: Infectious Diseases Attending Physician Attestation Patient seen and examined, discussed with medical billing associate. I have reviewed the patient's history of present illness, past medical, family and social histories, personal history, physical exam, lab findings and imaging studies. I agree with the above findings, assessment and plan. In addition, continue Merrem for this patient with Serratia bacteremia from leg stump infection and we have started Daptomycin for Strep bacteremia, source to be determined. Will continue to fol low clinically. Overall prognosis is poor.
[2018-01-30] MEDS ORDERED: Potassium Chloride 20 mEq ER Tab PO STA (07:04)
[2018-01-30] MEDS: Arformoterol 15 mcg/2 ml Inh Sol IH SCH ×2 (07:44→20:03)
[2018-01-30] MEDS: Budesonide 0.5 mg/2 ml Inhal Susp UD IH SCH ×2 (07:44→20:03)
--- NOTE | 2018-01-30 08:04 | RAD ---
Date of service: 01/30/2018 HISTORY: effusion COMPARISON: No prior. FINDINGS: LUNGS: No active pulmonary disease. PLEURA: There is a moderate size left pleural effusion which extends to the lung apex. CARDIOVASCULAR: No aortic atherosclerotic calcification present. Severe cardiomegaly no pulmonary vascular congestion. OSSEOUS STRUCTURES: No significant abnormalities. VISUALIZED UPPER ABDOMEN: Normal. OTHER FINDINGS: None. IMPRESSION: Severe cardiomegaly. Moderate size left pleural effusion extending to the left lung apex
[2018-01-30] MEDS: Insulin Regular 1 UNITS/0.01 ML ML SC SCH ×3 (08:28→16:30)
[2018-01-30] MEDS: Insulin Reg-HIGH-Coverage SC SCH ×4 (08:29→22:19)
--- NOTE | 2018-01-30 08:37 | CP.PCM.PN ---
Subjective - Date & Time of Evaluation Date of Evaluation: 01/30/18 Time of Evaluation: 08:31 - Subjective Subjective: Airam Hamm, PGY-1, Surgery Progress Note for Dr. Urrutia Patient seen and examined at bedside. Patient reports diffuse pain throughout the body. He also complains of shortness of breath and numbness/tingling of hands and feet. He denies vomiting, constipation, or diarrhea. He does not produce urine. Objective - Vital Signs/Intake and Output Vital Signs (last 24 hours): Temp Pulse Resp BP Pulse Ox 98.2 F 81 15 116/48 L 100 01/29/18 12:00 01/29/18 22:00 01/29/18 19:02 01/29/18 18:00 01/28/18 00:00 - Medications Medications: Current Medications Acetaminophen (Tylenol 325mg Tab) 650 mg PO Q6H PRN PRN Reason: Pain, moderate (4-7) Last Admin: 01/25/18 18:44 Dose: 650 mg Albuterol/Ipratropium (Duoneb 3 Mg/0.5 Mg (3 Ml) Ud) 3 ml IH [id number] PRN PRN Reason: Shortness of Breath Last Admin: 01/27/18 13:07 Dose: 3 ml Arformoterol Tartrate (Brovana) 15 mcg IH [id number] [facility] Last Admin: 01/30/18 07:44 Dose: 15 mcg Aspirin (Ecotrin) 81 mg PO DAILY [facility] Atorvastatin Calcium (Lipitor) 80 mg PO HS [facility] Last Admin: 01/29/18 21:22 Dose: 80 mg Budesonide (Pulmicort Respules) 0.5 mg IH Q12H [facility] Last Admin: 01/30/18 07:44 Dose: 0.5 mg Collagenase (Santyl) 1 gm TOP DAILY [facility] Last Admin: 01/29/18 18:03 Dose: 1 applic Duloxetine HCl (Cymbalta) 40 mg PO DAILY [facility] Last Admin: 01/29/18 14:59 Dose: 40 mg Famotidine (Pepcid) 20 mg PO HS [facility] Last Admin: 01/29/18 22:06 Dose: 20 mg Fenofibrate (Tricor) 145 mg PO DAILY [facility] Last Admin: 01/29/18 14:59 Dose: 145 mg Fluticasone Propionate (Flonase) 1 actuation NS DAILY PRN PRN Reason: Nasal congestion Guaifenesin (Mucinex La) 600 mg PO BID PRN PRN Reason: Cough Heparin Sodium (Porcine) (Heparin) 5,000 units SC Q12 [facility]; Protocol Last Admin: 01/26/18 15:40 Dose: Not Given NOREPINEPHRINE BIT/0.9 % NACL (Levophed 4 Mg/ 250 Ml Ns Premixed) 4 mg in 250 mls @ 15 mls/hr IV .[id number] PRN; Protocol PRN Reason: TITRATE PER MD ORDER Last Titration: 01/29/18 14:00 Dose: 0 mcg/min, 0 mls/hr Meropenem/Sodium Chloride (Merrem Iv 500 Mg/Ns 50 Ml) 500 mg in 50 mls @ 100 mls/hr IVPB Q12 [facility]; Protocol Stop: 02/05/18 10:01 Last Admin: 01/29/18 22:00 Dose: 100 mls/hr Insulin Detemir (Levemir) 10 unit SC HS [facility] Last Admin: 01/29/18 21:22 Dose: 10 unit Insulin Human Regular (Humulin R) 10 units SC AC [facility] Last Admin: 01/30/18 08:28 Dose: Not Given Insulin Human Regular (Humulin R High) 0 units SC ACHS [facility]; Protocol Last Admin: 01/30/18 08:29 Dose: Not Given Latanoprost (Xalatan Opht) 0 ml OU HS [facility] Last Admin: 01/29/18 21:23 Dose: Not Given Levothyroxine Sodium (Synthroid) 50 mcg PO 0600 [facility] Last Admin: 01/30/18 06:16 Dose: 50 mcg Metoprolol Tartrate (Lopressor) 25 mg PO BID [facility] Last Admin: 01/29/18 14:59 Dose: 25 mg Midodrine (Proamatine) 5 mg PO TID [facility] Last Admin: 01/29/18 21:22 Dose: 5 mg Ondansetron HCl (Zofran Inj) 4 mg IVP Q6H PRN PRN Reason: Nausea/Vomiting Last Admin: 01/29/18 11:58 Dose: 4 mg Oxycodone/Acetaminophen (Percocet 5/325 Mg Tab) 1 tab PO Q4H PRN PRN Reason: Pain, moderate (4-7) Stop: 01/30/18 08:41 Last Admin: 01/30/18 04:06 Dose: 1 tab Sodium Chloride ([place] Nasal [place]) 0 ml NS Q2 PRN PRN Reason: nasal congestion. Ticagrelor (Brilinta) 90 mg PO BID [facility] Last Admin: 01/29/18 15:03 Dose: 90 mg Zaleplon (Sonata) 5 mg PO HS [facility] Last Admin: 01/29/18 21:22 Dose: 5 mg - Labs Labs: 01/30/18 05:31 01/30/18 05:31 PT 20.6 SECONDS (9.4-12.5) H 01/23/18 08:50 INR 1.77 01/23/18 08:50 APTT 33.8 Seconds (25.1-36.5) 01/23/18 08:50 - Constitutional Appears: No Acute Distress, Unkempt - Head Exam Head Exam: ATRAUMATIC, NORMAL INSPECTION, NORMOCEPHALIC - Neck Exam Neck Exam: Full ROM - Respiratory Exam Respiratory Exam: Clear to Ausculation Bilateral, NORMAL BREATHING PATTERN - Cardiovascular Exam Cardiovascular Exam: REGULAR RHYTHM - GI/Abdominal Exam GI & Abdominal Exam: Soft, Tenderness, Normal Bowel Sounds - Extremities Exam Additional comments: Left lower extremity BKA present with clean and dry wound. 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 - Neurological Exam Neurological Exam: Alert, Awake, CN II-XII Intact - Skin Skin Exam: Dry, Intact Additional comments: darkened skin at left third finger and clean left BKA with dry wound Assessment and Plan - Assessment and Plan (Free Text) Assessment: 52 year old male with past medical history of CAD with 4 stents, ESRD on hemodialysis, IDDM type 2, and hypertension presents s/p BKA debridement day 7. Plan: Continue with wound dressing change daily. No bleeding from wound after platelet transfusion. No plans for DRIL procedure at this time. Replete electrolytes as needed. OK to restart DVT anticoagulation. GI prophylaxis with pepcid. Will discuss plan with Dr. Urrutia.
--- NOTE | 2018-01-30 09:10 | CP.CCUPN ---
<Arnie Barr - Last Filed: 01/30/18 15:41> CCU Subjective - Physician Review Subjective (Free Text): CRITICAL CARE PROGRESS NOTE FOR DR. LUCÍA Barr PGY-1 Pt seen and examined at bedside this am. Pt underwent HD yesterday with 2800 cc ultrafiltration. This am, he reports generalized weakness, lethargy, shortness of breath, and pain from R BKA site. Denies chest pain, palpitations, nausea, vomiting, diarrhea. CCU Objective - Vital Signs / Intake & Output Intake and Output (Last 8hrs): Intake & Output 01/29/18 01/30/18 01/30/18 22:59 06:59 14:59 Intake Total 350 Output Total 2800 Balance -2450 Intake: IV 100 Right Upper arm 100 Oral 250 Output: Emesis 2800 Other: # Voids Urine, Voided 0 - Physical Exam Head: Positive for: Atraumatic, Normocephalic Extroacular Muscles: Positive for: EOMI Conjunctiva: Positive for: Normal Mouth: Positive for: Dry Respiratory/Chest: Positive for: Clear to Auscultation. Negative for: Respiratory Distress, Accessory Muscle Use, Wheezes, Rales, Rhonchi Cardiovascular: Positive for: Murmurs, Irregular Rhythm, Gallop Abdomen: Positive for: Tenderness (diffuse abdominal tenderness), Distention (firm) Rectal: Positive for: Occult Blood (hemoccult positive; black liquid material on glove with scant brb), Rectal Tenderness, Hemorrhoids, Normal Rectal Tone. Negative for: Fissures, Nodule/Mass/Lesions Upper Extremity: Negative for: Normal Inspection ((+) finger amputation with dressing) Lower Extremity: Negative for: Normal Inspection (right bka; left lower extremity with venous stasis changes), CALF TENDERNESS Neurological: Positive for: GCS=15 Skin: Positive for: Warm, Dry, Other ((+) small stage 2 sacral decubitus ulcer) Psychiatric: Positive for: Lethargic (but arousable) - Medications Active Medications: Active Medications Generic Name Dose Route Start Last Admin Trade Name Freq PRN Reason Stop Dose Admin Acetaminophen 650 mg 01/22/18 22:48 01/25/18 18:44 Tylenol 325mg Tab PO 650 mg Q6H PRN Administration Pain, moderate (4-7) Albuterol/Ipratropium 3 ml 01/16/18 08:36 01/27/18 13:07 Duoneb 3 Mg/0.5 Mg (3 Ml) Ud IH 3 ml [id number] PRN Administration Shortness of Breath Arformoterol Tartrate 15 mcg 01/16/18 20:00 01/30/18 07:44 Brovana IH 15 mcg [id number] CARLOS Administration Aspirin 81 mg 01/30/18 10:00 Ecotrin PO DAILY CARLOS Atorvastatin Calcium 80 mg 01/24/18 08:03 01/29/18 21:22 Lipitor PO 80 mg HS CARLOS Administration Budesonide 0.5 mg 01/16/18 08:45 01/30/18 07:44 Pulmicort Respules IH 0.5 mg Q12H CARLOS Administration Collagenase 1 gm 01/16/18 15:45 01/29/18 18:03 Santyl TOP 1 applic DAILY CARLOS Administration Duloxetine HCl 40 mg 01/24/18 12:24 01/29/18 14:59 Cymbalta PO 40 mg DAILY CARLOS Administration Famotidine 20 mg 01/16/18 22:00 01/29/18 22:06 Pepcid PO 20 mg HS CARLOS Administration Fenofibrate 145 mg 01/16/18 10:00 01/29/18 14:59 Tricor PO 145 mg DAILY CARLOS Administration Fluticasone Propionate 1 actuation 01/16/18 08:36 Flonase NS DAILY PRN Nasal congestion Guaifenesin 600 mg 01/16/18 08:36 Mucinex La PO BID PRN Cough Heparin Sodium (Porcine) 5,000 units 01/16/18 22:00 01/26/18 15:40 Heparin SC Not Given Q12 CARLOS Protocol NOREPINEPHRINE BIT/0.9 % NACL 4 mg in 250 mls @ 15 mls/hr 01/27/18 18:51 01/29/18 14:00 Levophed 4 Mg/ 250 Ml Ns Premixed IV 0 mcg/min .[id number] PRN 0 mls/hr TITRATE PER MD ORDER Titration Protocol 4 MCG/MIN Meropenem/Sodium Chloride 500 mg in 50 mls @ 100 mls/hr 01/29/18 10:00 01/29/18 22:00 Merrem Iv 500 Mg/Ns 50 Ml IVPB 02/05/18 10:01 100 mls/hr Q12 CARLOS Administration Protocol Insulin Detemir 10 unit 01/23/18 22:00 01/29/18 21:22 Levemir SC 10 unit HS CARLOS Administration Insulin Human Regular 10 units 01/23/18 11:30 01/30/18 08:28 Humulin R SC Not Given AC CARLOS Insulin Human Regular 0 units 01/23/18 09:01 01/30/18 08:29 Humulin R High SC Not Given ACHS [facility] Protocol Latanoprost 0 ml 01/16/18 22:00 01/29/18 21:23 Xalatan Opht OU Not Given HS [facility] Levothyroxine Sodium 50 mcg 01/18/18 06:00 01/30/18 06:16 Synthroid PO 50 mcg 0600 [facility] Administration Metoprolol Tartrate 25 mg 01/16/18 10:00 01/29/18 14:59 Lopressor PO 25 mg BID [facility] Administration Midodrine 5 mg 01/29/18 10:00 01/29/18 21:22 Proamatine PO 5 mg TID CARLOS Administration Ondansetron HCl 4 mg 01/29/18 11:28 01/29/18 11:58 Zofran Inj IVP 4 mg Q6H PRN Administration Nausea/Vomiting Sodium Chloride 0 ml 01/16/18 08:36 Chase Nasal Constantia NS Q2 PRN nasal congestion. Ticagrelor 90 mg 01/16/18 10:00 01/29/18 15:03 Brilinta PO 90 mg BID CARLOS Administration Zaleplon 5 mg 01/23/18 22:00 01/29/18 21:22 Sonata PO 5 mg HS [facility] Administration - Patient Studies Lab Studies: Microbiology Studies 01/28/18 14:45 S.aureus & Coag-Neg Staph PNA FISH - Preliminary Blood-Venous Blood Culture - Preliminary Gram Positive Cocci Gram Stain - Final 01/28/18 14:30 Blood Culture - Preliminary Blood-Venous NO GROWTH AFTER 24 HOURS 01/27/18 20:04 MRSA Culture (Admit) - Final Nose MRSA NOT DETECTED Lab Studies 01/30/18 01/30/18 01/29/18 Range/Units 05:31 05:31 21:21 WBC 16.8 H D (4.5-11.0) 10^3/uL RBC 2.92 L (3.5-6.1) 10^6/uL Hgb 9.0 L (14.0-18.0) g/dL Hct 27.5 L (42.0-52.0) % MCV 94.2 (80.0-105.0) fl MCH 30.8 (25.0-35.0) pg MCHC 32.7 (31.0-37.0) g/dl RDW 18.8 H (11.5-14.5) % Plt Count 121 (120.0-450.0) 10^3/uL MPV 11.4 H (7.0-11.0) fl Gran % 84.2 H (50.0-68.0) % Lymph % (Auto) 6.5 L (22.0-35.0) % [place] % (Auto) 9.1 H (1.0-6.0) % Eos % (Auto) 0.1 L (1.5-5.0) % Baso % (Auto) 0.1 (0.0-3.0) % Gran # 14.16 H (1.4-6.5) Lymph # (Auto) 1.1 L (1.2-3.4) [place] # (Auto) 1.5 H (0.1-0.6) Eos # (Auto) 0.0 (0.0-0.7) Baso # (Auto) 0.01 (0.0-2.0) K/mm3 pCO2 (35-45) mm/Hg pO2 (80-100) mm/Hg HCO3 (21-28) mmol/L ABG pH (7.35-7.45) ABG Total CO2 (22-28) mmol.L ABG O2 Saturation (95-98) % ABG O2 Content (15-23) ML/dl ABG Base Excess (-2.0-3.0) mmol/L ABG Hemoglobin (11.7-17.4) g/dL ABG Carboxyhemoglobin (0.5-1.5) % POC ABG HHb (Measured) (0-5) % ABG Methemoglobin (0.0-3.0) % ABG O2 Capacity (16-24) mL/dl Hgb O2 Saturation (95.0-98.0) % FiO2 % Sodium 138 (132-148) mmol/L Potassium 3.4 L (3.6-5.0) mmol/L Chloride 101 (98-107) mmol/L Carbon Dioxide 31 (21-33) mmol/L Anion Gap 9 L (10-20) BUN 30 H (7-21) mg/dL Creatinine 2.2 H (0.8-1.5) mg/dl Est GFR ( Amer) 38 Est GFR (Non-Af Amer) 31 POC Glucose (mg/dL) 154 H (65-110) mg/dL Random Glucose 116 H (70-110) mg/dL Calcium 7.6 L (8.4-10.5) mg/dL Phosphorus 4.5 (2.5-4.5) mg/dL Magnesium 2.0 (1.7-2.2) mg/dL Total Bilirubin 1.4 H (0.2-1.3) mg/dL AST 83 H D (17-59) U/L ALT 42 (7-56) U/L Alkaline Phosphatase 139 H D (38-126) U/L Troponin I 0.45 H* D ng/mL Total Protein 5.5 L (5.8-8.3) g/dL Albumin 2.1 L (3.0-4.8) g/dL Globulin 3.4 gm/dL Albumin/Globulin Ratio 0.6 L (1.1-1.8) Procalcitonin (0.19-0.49) NG/ML 01/29/18 01/29/18 01/29/18 Range/Units 15:58 09:00 07:21 WBC (4.5-11.0) 10^3/uL RBC (3.5-6.1) 10^6/uL Hgb (14.0-18.0) g/dL Hct (42.0-52.0) % MCV (80.0-105.0) fl MCH (25.0-35.0) pg MCHC (31.0-37.0) g/dl RDW (11.5-14.5) % Plt Count (120.0-450.0) 10^3/uL MPV (7.0-11.0) fl Gran % (50.0-68.0) % Lymph % (Auto) (22.0-35.0) % [place] % (Auto) (1.0-6.0) % Eos % (Auto) (1.5-5.0) % Baso % (Auto) (0.0-3.0) % Gran # (1.4-6.5) Lymph # (Auto) (1.2-3.4) [place] # (Auto) (0.1-0.6) Eos # (Auto) (0.0-0.7) Baso # (Auto) (0.0-2.0) K/mm3 pCO2 40 (35-45) mm/Hg pO2 150.0 H (80-100) mm/Hg HCO3 24.2 (21-28) mmol/L ABG pH 7.39 (7.35-7.45) ABG Total CO2 25.4 (22-28) mmol.L ABG O2 Saturation 99.1 H (95-98) % ABG O2 Content 12.5 L (15-23) ML/dl ABG Base Excess -0.7 (-2.0-3.0) mmol/L ABG Hemoglobin 8.9 L (11.7-17.4) g/dL ABG Carboxyhemoglobin 1.8 H (0.5-1.5) % POC ABG HHb (Measured) 0.9 (0-5) % ABG Methemoglobin 0.4 (0.0-3.0) % ABG O2 Capacity 12.6 L (16-24) mL/dl Hgb O2 Saturation 97.0 (95.0-98.0) % FiO2 32.0 % Sodium (132-148) mmol/L Potassium (3.6-5.0) mmol/L Chloride (98-107) mmol/L Carbon Dioxide (21-33) mmol/L Anion Gap (10-20) BUN (7-21) mg/dL Creatinine (0.8-1.5) mg/dl Est GFR ( Amer) Est GFR (Non-Af Amer) POC Glucose (mg/dL) 77 64 L (65-110) mg/dL Random Glucose (70-110) mg/dL Calcium (8.4-10.5) mg/dL Phosphorus (2.5-4.5) mg/dL Magnesium (1.7-2.2) mg/dL Total Bilirubin (0.2-1.3) mg/dL AST (17-59) U/L ALT (7-56) U/L Alkaline Phosphatase (38-126) U/L Troponin I ng/mL Total Protein (5.8-8.3) g/dL Albumin (3.0-4.8) g/dL Globulin gm/dL Albumin/Globulin Ratio (1.1-1.8) Procalcitonin (0.19-0.49) NG/ML 01/29/18 01/29/18 01/29/18 Range/Units 07:00 06:50 05:30 WBC (4.5-11.0) 10^3/uL RBC (3.5-6.1) 10^6/uL Hgb (14.0-18.0) g/dL Hct (42.0-52.0) % MCV (80.0-105.0) fl MCH (25.0-35.0) pg MCHC (31.0-37.0) g/dl RDW (11.5-14.5) % Plt Count (120.0-450.0) 10^3/uL MPV (7.0-11.0) fl Gran % (50.0-68.0) % Lymph % (Auto) (22.0-35.0) % [place] % (Auto) (1.0-6.0) % Eos % (Auto) (1.5-5.0) % Baso % (Auto) (0.0-3.0) % Gran # (1.4-6.5) Lymph # (Auto) (1.2-3.4) [place] # (Auto) (0.1-0.6) Eos # (Auto) (0.0-0.7) Baso # (Auto) (0.0-2.0) K/mm3 pCO2 (35-45) mm/Hg pO2 (80-100) mm/Hg HCO3 (21-28) mmol/L ABG pH (7.35-7.45) ABG Total CO2 (22-28) mmol.L ABG O2 Saturation (95-98) % ABG O2 Content (15-23) ML/dl ABG Base Excess (-2.0-3.0) mmol/L ABG Hemoglobin (11.7-17.4) g/dL ABG Carboxyhemoglobin (0.5-1.5) % POC ABG HHb (Measured) (0-5) % ABG Methemoglobin (0.0-3.0) % ABG O2 Capacity (16-24) mL/dl Hgb O2 Saturation (95.0-98.0) % FiO2 % Sodium (132-148) mmol/L Potassium (3.6-5.0) mmol/L Chloride (98-107) mmol/L Carbon Dioxide (21-33) mmol/L Anion Gap (10-20) BUN (7-21) mg/dL Creatinine (0.8-1.5) mg/dl Est GFR ( Amer) Est GFR (Non-Af Amer) POC Glucose (mg/dL) 105 (65-110) mg/dL Random Glucose (70-110) mg/dL Calcium (8.4-10.5) mg/dL Phosphorus (2.5-4.5) mg/dL Magnesium (1.7-2.2) mg/dL Total Bilirubin (0.2-1.3) mg/dL AST (17-59) U/L ALT (7-56) U/L Alkaline Phosphatase (38-126) U/L Troponin I 0.67 H* D ng/mL Total Protein (5.8-8.3) g/dL Albumin (3.0-4.8) g/dL Globulin gm/dL Albumin/Globulin Ratio (1.1-1.8) Procalcitonin 1.07 H (0.19-0.49) NG/ML 01/29/18 01/28/18 01/28/18 Range/Units 02:42 22:05 21:35 WBC (4.5-11.0) 10^3/uL RBC (3.5-6.1) 10^6/uL Hgb (14.0-18.0) g/dL Hct (42.0-52.0) % MCV (80.0-105.0) fl MCH (25.0-35.0) pg MCHC (31.0-37.0) g/dl RDW (11.5-14.5) % Plt Count (120.0-450.0) 10^3/uL MPV (7.0-11.0) fl Gran % (50.0-68.0) % Lymph % (Auto) (22.0-35.0) % [place] % (Auto) (1.0-6.0) % Eos % (Auto) (1.5-5.0) % Baso % (Auto) (0.0-3.0) % Gran # (1.4-6.5) Lymph # (Auto) (1.2-3.4) [place] # (Auto) (0.1-0.6) Eos # (Auto) (0.0-0.7) Baso # (Auto) (0.0-2.0) K/mm3 pCO2 (35-45) mm/Hg pO2 (80-100) mm/Hg HCO3 (21-28) mmol/L ABG pH (7.35-7.45) ABG Total CO2 (22-28) mmol.L ABG O2 Saturation (95-98) % ABG O2 Content (15-23) ML/dl ABG Base Excess (-2.0-3.0) mmol/L ABG Hemoglobin (11.7-17.4) g/dL ABG Carboxyhemoglobin (0.5-1.5) % POC ABG HHb (Measured) (0-5) % ABG Methemoglobin (0.0-3.0) % ABG O2 Capacity (16-24) mL/dl Hgb O2 Saturation (95.0-98.0) % FiO2 % Sodium (132-148) mmol/L Potassium (3.6-5.0) mmol/L Chloride (98-107) mmol/L Carbon Dioxide (21-33) mmol/L Anion Gap (10-20) BUN (7-21) mg/dL Creatinine (0.8-1.5) mg/dl Est GFR ( Amer) Est GFR (Non-Af Amer) POC Glucose (mg/dL) 97 91 < 20 L* (65-110) mg/dL Random Glucose (70-110) mg/dL Calcium (8.4-10.5) mg/dL Phosphorus (2.5-4.5) mg/dL Magnesium (1.7-2.2) mg/dL Total Bilirubin (0.2-1.3) mg/dL AST (17-59) U/L ALT (7-56) U/L Alkaline Phosphatase (38-126) U/L Troponin I ng/mL Total Protein (5.8-8.3) g/dL Albumin (3.0-4.8) g/dL Globulin gm/dL Albumin/Globulin Ratio (1.1-1.8) Procalcitonin (0.19-0.49) NG/ML 01/28/18 01/28/18 01/28/18 Range/Units 15:17 11:32 07:39 WBC (4.5-11.0) 10^3/uL RBC (3.5-6.1) 10^6/uL Hgb (14.0-18.0) g/dL Hct (42.0-52.0) % MCV (80.0-105.0) fl MCH (25.0-35.0) pg MCHC (31.0-37.0) g/dl RDW (11.5-14.5) % Plt Count (120.0-450.0) 10^3/uL MPV (7.0-11.0) fl Gran % (50.0-68.0) % Lymph % (Auto) (22.0-35.0) % [place] % (Auto) (1.0-6.0) % Eos % (Auto) (1.5-5.0) % Baso % (Auto) (0.0-3.0) % Gran # (1.4-6.5) Lymph # (Auto) (1.2-3.4) [place] # (Auto) (0.1-0.6) Eos # (Auto) (0.0-0.7) Baso # (Auto) (0.0-2.0) K/mm3 pCO2 (35-45) mm/Hg pO2 (80-100) mm/Hg HCO3 (21-28) mmol/L ABG pH (7.35-7.45) ABG Total CO2 (22-28) mmol.L ABG O2 Saturation (95-98) % ABG O2 Content (15-23) ML/dl ABG Base Excess (-2.0-3.0) mmol/L ABG Hemoglobin (11.7-17.4) g/dL ABG Carboxyhemoglobin (0.5-1.5) % POC ABG HHb (Measured) (0-5) % ABG Methemoglobin (0.0-3.0) % ABG O2 Capacity (16-24) mL/dl Hgb O2 Saturation (95.0-98.0) % FiO2 % Sodium (132-148) mmol/L Potassium (3.6-5.0) mmol/L Chloride (98-107) mmol/L Carbon Dioxide (21-33) mmol/L Anion Gap (10-20) BUN (7-21) mg/dL Creatinine (0.8-1.5) mg/dl Est GFR ( Amer) Est GFR (Non-Af Amer) POC Glucose (mg/dL) 103 302 H 259 H (65-110) mg/dL Random Glucose (70-110) mg/dL Calcium (8.4-10.5) mg/dL Phosphorus (2.5-4.5) mg/dL Magnesium (1.7-2.2) mg/dL Total Bilirubin (0.2-1.3) mg/dL AST (17-59) U/L ALT (7-56) U/L Alkaline Phosphatase (38-126) U/L Troponin I ng/mL Total Protein (5.8-8.3) g/dL Albumin (3.0-4.8) g/dL Globulin gm/dL Albumin/Globulin Ratio (1.1-1.8) Procalcitonin (0.19-0.49) NG/ML Laboratory Results - last 24 hr 01/28/18 01/28/18 01/28/18 07:39 11:32 15:17 WBC RBC Hgb Hct MCV MCH MCHC RDW Plt Count MPV Gran % Lymph % (Auto) [place] % (Auto) Eos % (Auto) Baso % (Auto) Gran # Lymph # (Auto) [place] # (Auto) Eos # (Auto) Baso # (Auto) pCO2 pO2 HCO3 ABG pH ABG Total CO2 ABG O2 Saturation ABG O2 Content ABG Base Excess ABG Hemoglobin ABG Carboxyhemoglobin POC ABG HHb (Measured) ABG Methemoglobin ABG O2 Capacity Hgb O2 Saturation FiO2 Sodium Potassium Chloride Carbon Dioxide Anion Gap BUN Creatinine Est GFR ( Amer) Est GFR (Non-Af Amer) POC Glucose (mg/dL) 259 H 302 H 103 Random Glucose Calcium Phosphorus Magnesium Total Bilirubin AST ALT Alkaline Phosphatase Troponin I Total Protein Albumin Globulin Albumin/Globulin Ratio Procalcitonin 01/28/18 01/28/18 01/29/18 21:35 22:05 02:42 WBC RBC Hgb Hct MCV MCH MCHC RDW Plt Count MPV Gran % Lymph % (Auto) [place] % (Auto) Eos % (Auto) Baso % (Auto) Gran # Lymph # (Auto) [place] # (Auto) Eos # (Auto) Baso # (Auto) pCO2 pO2 HCO3 ABG pH ABG Total CO2 ABG O2 Saturation ABG O2 Content ABG Base Excess ABG Hemoglobin ABG Carboxyhemoglobin POC ABG HHb (Measured) ABG Methemoglobin ABG O2 Capacity Hgb O2 Saturation FiO2 Sodium Potassium Chloride Carbon Dioxide Anion Gap BUN Creatinine Est GFR ( Amer) Est GFR (Non-Af Amer) POC Glucose (mg/dL) < 20 L* 91 97 Random Glucose Calcium Phosphorus Magnesium Total Bilirubin AST ALT Alkaline Phosphatase Troponin I Total Protein Albumin Globulin Albumin/Globulin Ratio Procalcitonin 01/29/18 01/29/18 01/29/18 05:30 06:50 07:00 WBC RBC Hgb Hct MCV MCH MCHC RDW Plt Count MPV Gran % Lymph % (Auto) [place] % (Auto) Eos % (Auto) Baso % (Auto) Gran # Lymph # (Auto) [place] # (Auto) Eos # (Auto) Baso # (Auto) pCO2 pO2 HCO3 ABG pH ABG Total CO2 ABG O2 Saturation ABG O2 Content ABG Base Excess ABG Hemoglobin ABG Carboxyhemoglobin POC ABG HHb (Measured) ABG Methemoglobin ABG O2 Capacity Hgb O2 Saturation FiO2 Sodium Potassium Chloride Carbon Dioxide Anion Gap BUN Creatinine Est GFR ( Amer) Est GFR (Non-Af Amer) POC Glucose (mg/dL) 105 Random Glucose Calcium Phosphorus Magnesium Total Bilirubin AST ALT Alkaline Phosphatase Troponin I 0.67 H* D Total Protein Albumin Globulin Albumin/Globulin Ratio Procalcitonin 1.07 H 01/29/18 01/29/18 01/29/18 07:21 09:00 15:58 WBC RBC Hgb Hct MCV MCH MCHC RDW Plt Count MPV Gran % Lymph % (Auto) [place] % (Auto) Eos % (Auto) Baso % (Auto) Gran # Lymph # (Auto) [place] # (Auto) Eos # (Auto) Baso # (Auto) pCO2 40 pO2 150.0 H HCO3 24.2 ABG pH 7.39 ABG Total CO2 25.4 ABG O2 Saturation 99.1 H ABG O2 Content 12.5 L ABG Base Excess -0.7 ABG Hemoglobin 8.9 L ABG Carboxyhemoglobin 1.8 H POC ABG HHb (Measured) 0.9 ABG Methemoglobin 0.4 ABG O2 Capacity 12.6 L Hgb O2 Saturation 97.0 FiO2 32.0 Sodium Potassium Chloride Carbon Dioxide Anion Gap BUN Creatinine Est GFR ( Amer) Est GFR (Non-Af Amer) POC Glucose (mg/dL) 64 L 77 Random Glucose Calcium Phosphorus Magnesium Total Bilirubin AST ALT Alkaline Phosphatase Troponin I Total Protein Albumin Globulin Albumin/Globulin Ratio Procalcitonin 01/29/18 01/30/18 01/30/18 21:21 05:31 05:31 WBC 16.8 H D RBC 2.92 L Hgb 9.0 L Hct 27.5 L MCV 94.2 MCH 30.8 MCHC 32.7 RDW 18.8 H Plt Count 121 MPV 11.4 H Gran % 84.2 H Lymph % (Auto) 6.5 L [place] % (Auto) 9.1 H Eos % (Auto) 0.1 L Baso % (Auto) 0.1 Gran # 14.16 H Lymph # (Auto) 1.1 L [place] # (Auto) 1.5 H Eos # (Auto) 0.0 Baso # (Auto) 0.01 pCO2 pO2 HCO3 ABG pH ABG Total CO2 ABG O2 Saturation ABG O2 Content ABG Base Excess ABG Hemoglobin ABG Carboxyhemoglobin POC ABG HHb (Measured) ABG Methemoglobin ABG O2 Capacity Hgb O2 Saturation FiO2 Sodium 138 Potassium 3.4 L Chloride 101 Carbon Dioxide 31 Anion Gap 9 L BUN 30 H Creatinine 2.2 H Est GFR ( Amer) 38 Est GFR (Non-Af Amer) 31 POC Glucose (mg/dL) 154 H Random Glucose 116 H Calcium 7.6 L Phosphorus 4.5 Magnesium 2.0 Total Bilirubin 1.4 H AST 83 H D ALT 42 Alkaline Phosphatase 139 H D Troponin I 0.45 H* D Total Protein 5.5 L Albumin 2.1 L Globulin 3.4 Albumin/Globulin Ratio 0.6 L Procalcitonin EKG/Cardiology Studies: Cardiology / EKG Studies 01/29/18 10:35 EKG [ELECTROCARDIOGRAM] Stat Comment: Reason For Exam: SOB Fingerstick Blood Sugar Results: 116 Review of Systems - Review of Systems Review of Systems: per HPI Critical Care Progress Note - Nutrition Nutrition: Nutrition Category Date Time Status Renal Diet [DIET] Diets 01/23/18 Dinner Ordered Assessment/Plan - Assessment and Plan (Free Text) Assessment: 52 y/o M with PMHx ESRD on HD TTS, PAD, IDDM, CHF, COPD, CAD s/p stents, pacemaker POD5 s/p debridement of necrotic R BKA stump admitted to ICU for hypotension 2/2 acute hemorrhage from R BKA. Plan: Neuro: AxO x 3 No FND Reorient as necessary Cardiovascular: Hx of VA with stents 09/2017 Continue brilinta and aspirin L femoral and L arterial central line in place Monitor BP with arterial line Not requiring vasopressors at the moment currently on midodrine 5mg tid POC echocardiogram done at bedside did not show severely depressed LV. Refer to cardiology input. RV appears slightly dilated. Maintain MAP >65 troponin came back elevated, downtrending cardiology made aware no emergent intervention at the moment s/p 1u platelets Maintain Hgb >7.0 continue metoprolol continue atorvastatin continue fenofibrate f/u cardio recs Pulmonary: Developed acute SOB ABG revealed no acidosis or hypoxemia chest xray revealed no pneumothorax or worsening pulmonary edema CT w/ PE protocol showed no PE large L pleural effusion noted on todays chest xray IR for thoracentesis evaluation s/p 2800 cc HD venous doppler of LE showed no DVT RENATA BiPAP prn Mucinex flonase duonebs brovana f/u pulm recs GI: Diarrhea Pepcid for GI ppx f/u GI recs /Renal: s/p HD, 2800cc ultrafiltration ESRD on HD MWF f/u nephro recs ID: R BKA infection s/p debridement Bacteremia with serratia marcecens Leukocytosis this am @16.8 Merropenem per ID recs Endo: Hypothyroidism continue levothyroxine DM Insulin sliding scale- high Heme: hemorrhagic shock, d/t significant bleeding after R stump debridement Hgb stable for 24 hours Monitor H/H s/p 3u pRBC total Dispo: Pt is hemodynamically stable. His labs have been stable. His L femoral a- line and TLC have been removed. He has a midline in place in R arm. He no longer requires ICU care. He is stable for transfer to telemetry floor. Case seen, examined and discussed with attending physician, Dr. Mcgregor <Maia Mcgregor - Last Filed: 01/30/18 18:02> CCU Objective - Vital Signs / Intake & Output Vital Signs (Last 4 hours): Vital Signs Pulse Resp BP Pulse Ox 01/30/18 17:33 78 16 01/30/18 17:32 78 12 01/30/18 17:31 79 13 01/30/18 17:30 78 18 104/43 L 93 L 01/30/18 17:15 106/49 L 01/30/18 17:14 80 18 01/30/18 17:13 81 15 01/30/18 17:12 79 11 L 01/30/18 17:11 80 10 L 01/30/18 17:10 79 12 01/30/18 17:01 79 14 106/49 L 99 01/30/18 16:57 78 12 200/46 H 100 01/30/18 16:56 74 11 L 01/30/18 16:55 76 12 01/30/18 16:54 69 12 01/30/18 16:53 74 10 L 01/30/18 16:52 71 9 L 01/30/18 16:51 78 11 L 01/30/18 16:50 72 11 L 01/30/18 16:49 76 10 L 01/30/18 16:48 73 10 L 01/30/18 16:47 77 11 L 01/30/18 16:46 71 10 L 01/30/18 16:45 76 13 01/30/18 16:44 79 12 01/30/18 16:43 79 12 01/30/18 16:42 79 16 01/30/18 16:41 79 17 01/30/18 16:40 77 17 01/30/18 16:39 79 19 01/30/18 16:38 70 9 L 01/30/18 16:37 76 10 L 01/30/18 16:36 78 9 L 01/30/18 16:35 74 9 L 01/30/18 16:34 76 10 L 01/30/18 16:33 76 10 L 01/30/18 16:32 78 9 L 01/30/18 16:31 76 11 L 01/30/18 16:30 76 14 01/30/18 16:29 76 12 93/41 L 01/30/18 16:28 76 11 L 01/30/18 16:27 76 10 L 01/30/18 16:26 77 11 L 01/30/18 16:25 77 11 L 01/30/18 16:24 77 19 01/30/18 16:23 77 10 L 01/30/18 16:22 77 13 01/30/18 16:21 77 11 L 01/30/18 16:20 77 12 01/30/18 16:19 78 10 L 01/30/18 16:18 79 11 L 01/30/18 16:17 77 11 L 01/30/18 14:00 91/47 L - Medications Active Medications: Active Medications Generic Name Dose Route Start Last Admin Trade Name Freq PRN Reason Stop Dose Admin Acetaminophen 650 mg 01/30/18 11:12 Tylenol 325mg Tab PO Q6H PRN Pain, Mild (1-3) Albuterol/Ipratropium 3 ml 01/16/18 08:36 01/27/18 13:07 Duoneb 3 Mg/0.5 Mg (3 Ml) Ud IH 3 ml [id number] PRN Administration Shortness of Breath Arformoterol Tartrate 15 mcg 01/16/18 20:00 01/30/18 07:44 Brovana IH 15 mcg [id number] CARLOS Administration Aspirin 81 mg 01/30/18 10:00 01/30/18 11:03 Ecotrin PO 81 mg DAILY CARLOS Administration Atorvastatin Calcium 80 mg 01/24/18 08:03 01/29/18 21:22 Lipitor PO 80 mg HS CARLOS Administration Budesonide 0.5 mg 01/16/18 08:45 01/30/18 07:44 Pulmicort Respules IH 0.5 mg Q12H CARLOS Administration Collagenase 1 gm 01/16/18 15:45 01/30/18 13:14 Santyl TOP Not Given DAILY CARLOS Duloxetine HCl 40 mg 01/24/18 12:24 01/30/18 11:03 Cymbalta PO 40 mg DAILY CARLOS Administration Famotidine 20 mg 01/16/18 22:00 01/29/18 22:06 Pepcid PO 20 mg HS CARLOS Administration Fenofibrate 145 mg 01/16/18 10:00 01/30/18 11:05 Tricor PO 145 mg DAILY CARLOS Administration Fluticasone Propionate 1 actuation 01/16/18 08:36 Flonase NS DAILY PRN Nasal congestion Guaifenesin 600 mg 01/16/18 08:36 Mucinex La PO BID PRN Cough Heparin Sodium (Porcine) 5,000 units 01/16/18 22:00 01/26/18 15:40 Heparin SC Not Given Q12 CARLOS Protocol NOREPINEPHRINE BIT/0.9 % NACL 4 mg in 250 mls @ 15 mls/hr 01/27/18 18:51 01/29/18 14:00 Levophed 4 Mg/ 250 Ml Ns Premixed IV 0 mcg/min .[id number] PRN 0 mls/hr TITRATE PER MD ORDER Titration Protocol 4 MCG/MIN Meropenem/Sodium Chloride 500 mg in 50 mls @ 100 mls/hr 01/29/18 10:00 01/30/18 11:04 Merrem Iv 500 Mg/Ns 50 Ml IVPB 02/05/18 10:01 100 mls/hr Q12 CARLOS Administration Protocol Daptomycin 700 mg/ Sodium 100 mls @ 200 mls/hr 01/30/18 10:00 01/30/18 13:00 Chloride IV 02/06/18 10:01 200 mls/hr QOTHERDAY CARLOS Administration Insulin Detemir 10 unit 01/23/18 22:00 01/29/18 21:22 Levemir SC 10 unit HS CARLOS Administration Insulin Human Regular 0 units 01/23/18 09:01 01/30/18 11:30 Humulin R High SC Not Given ACHS CARLOS Protocol Insulin Human Regular 5 units 01/30/18 09:51 01/30/18 11:30 Humulin R SC Not Given AC CARLOS Latanoprost 0 ml 01/16/18 22:00 01/29/18 21:23 Xalatan Opht OU Not Given HS CARLOS Levothyroxine Sodium 50 mcg 01/18/18 06:00 01/30/18 06:16 Synthroid PO 50 mcg 0600 CARLOS Administration Metoprolol Tartrate 25 mg 01/16/18 10:00 01/30/18 11:04 Lopressor PO Not Given BID CARLOS Midodrine 5 mg 01/29/18 10:00 01/30/18 11:05 Proamatine PO 5 mg TID CARLOS Administration Ondansetron HCl 4 mg 01/29/18 11:28 01/29/18 11:58 Zofran Inj IVP 4 mg Q6H PRN Administration Nausea/Vomiting Oxycodone/Acetaminophen 1 tab 01/30/18 11:07 01/30/18 11:21 Percocet 5/325 Mg Tab PO 02/02/18 11:08 1 tab Q4H PRN Administration Pain, moderate (4-7) Sodium Chloride 0 ml 01/16/18 08:36 Chase Nasal Constantia NS Q2 PRN nasal congestion. Ticagrelor 90 mg 01/16/18 10:00 01/29/18 15:03 Brilinta PO 90 mg BID CARLOS Administration Zaleplon 5 mg 01/23/18 22:00 01/29/18 21:22 Sonata PO 5 mg HS CARLOS Administration - Patient Studies Lab Studies: Microbiology Studies 01/28/18 14:45 S.aureus & Coag-Neg Staph PNA FISH - Final Blood-Venous Blood Culture - Preliminary Gram Positive Cocci Gram Stain - Final 01/28/18 14:30 Blood Culture - Preliminary Blood-Venous NO GROWTH AFTER 48 HOURS Lab Studies 01/30/18 01/30/18 01/30/18 Range/Units 11:34 05:31 05:31 WBC (4.5-11.0) 10^3/uL RBC (3.5-6.1) 10^6/uL Hgb (14.0-18.0) g/dL Hct (42.0-52.0) % MCV (80.0-105.0) fl MCH (25.0-35.0) pg MCHC (31.0-37.0) g/dl RDW (11.5-14.5) % Plt Count (120.0-450.0) 10^3/uL MPV (7.0-11.0) fl Gran % (50.0-68.0) % Lymph % (Auto) (22.0-35.0) % [place] % (Auto) (1.0-6.0) % Eos % (Auto) (1.5-5.0) % Baso % (Auto) (0.0-3.0) % Gran # (1.4-6.5) Lymph # (Auto) (1.2-3.4) [place] # (Auto) (0.1-0.6) Eos # (Auto) (0.0-0.7) Baso # (Auto) (0.0-2.0) K/mm3 PT (9.0-11.5) sec Mix PT Baseline (< OR = 11.5) sec PT Incubation Time Lupus Anticoag PTT Mix Sodium 138 (132-148) mmol/L Potassium 3.4 L (3.6-5.0) mmol/L Chloride 101 (98-107) mmol/L Carbon Dioxide 31 (21-33) mmol/L Anion Gap 9 L (10-20) BUN 30 H (7-21) mg/dL Creatinine 2.2 H (0.8-1.5) mg/dl Est GFR ( Amer) 38 Est GFR (Non-Af Amer) 31 POC Glucose (mg/dL) 128 H (65-110) mg/dL Random Glucose 116 H (70-110) mg/dL Calcium 7.6 L (8.4-10.5) mg/dL Phosphorus 4.5 (2.5-4.5) mg/dL Magnesium 2.0 (1.7-2.2) mg/dL Total Bilirubin 1.4 H (0.2-1.3) mg/dL AST 83 H D (17-59) U/L ALT 42 (7-56) U/L Alkaline Phosphatase 139 H D (38-126) U/L Troponin I 0.45 H* D ng/mL Total Protein 5.5 L (5.8-8.3) g/dL Albumin 2.1 L (3.0-4.8) g/dL Globulin 3.4 gm/dL Albumin/Globulin Ratio 0.6 L (1.1-1.8) Cortisol AM Sample 24.8 H (4.46-22.7) ug/dL Prothrombin Mut Interp Prothrombin Gene Mutate Prothromb Gene Review 01/30/18 01/29/18 01/29/18 Range/Units 05:31 21:21 15:58 WBC 16.8 H D (4.5-11.0) 10^3/uL RBC 2.92 L (3.5-6.1) 10^6/uL Hgb 9.0 L (14.0-18.0) g/dL Hct 27.5 L (42.0-52.0) % MCV 94.2 (80.0-105.0) fl MCH 30.8 (25.0-35.0) pg MCHC 32.7 (31.0-37.0) g/dl RDW 18.8 H (11.5-14.5) % Plt Count 121 (120.0-450.0) 10^3/uL MPV 11.4 H (7.0-11.0) fl Gran % 84.2 H (50.0-68.0) % Lymph % (Auto) 6.5 L (22.0-35.0) % [place] % (Auto) 9.1 H (1.0-6.0) % Eos % (Auto) 0.1 L (1.5-5.0) % Baso % (Auto) 0.1 (0.0-3.0) % Gran # 14.16 H (1.4-6.5) Lymph # (Auto) 1.1 L (1.2-3.4) [place] # (Auto) 1.5 H (0.1-0.6) Eos # (Auto) 0.0 (0.0-0.7) Baso # (Auto) 0.01 (0.0-2.0) K/mm3 PT (9.0-11.5) sec Mix PT Baseline (< OR = 11.5) sec PT Incubation Time Lupus Anticoag PTT Mix Sodium (132-148) mmol/L Potassium (3.6-5.0) mmol/L Chloride (98-107) mmol/L Carbon Dioxide (21-33) mmol/L Anion Gap (10-20) BUN (7-21) mg/dL Creatinine (0.8-1.5) mg/dl Est GFR ( Amer) Est GFR (Non-Af Amer) POC Glucose (mg/dL) 154 H 77 (65-110) mg/dL Random Glucose (70-110) mg/dL Calcium (8.4-10.5) mg/dL Phosphorus (2.5-4.5) mg/dL Magnesium (1.7-2.2) mg/dL Total Bilirubin (0.2-1.3) mg/dL AST (17-59) U/L ALT (7-56) U/L Alkaline Phosphatase (38-126) U/L Troponin I ng/mL Total Protein (5.8-8.3) g/dL Albumin (3.0-4.8) g/dL Globulin gm/dL Albumin/Globulin Ratio (1.1-1.8) Cortisol AM Sample (4.46-22.7) ug/dL Prothrombin Mut Interp Prothrombin Gene Mutate Prothromb Gene Review 01/29/18 01/29/18 01/29/18 Range/Units 07:21 06:50 02:42 WBC (4.5-11.0) 10^3/uL RBC (3.5-6.1) 10^6/uL Hgb (14.0-18.0) g/dL Hct (42.0-52.0) % MCV (80.0-105.0) fl MCH (25.0-35.0) pg MCHC (31.0-37.0) g/dl RDW (11.5-14.5) % Plt Count (120.0-450.0) 10^3/uL MPV (7.0-11.0) fl Gran % (50.0-68.0) % Lymph % (Auto) (22.0-35.0) % [place] % (Auto) (1.0-6.0) % Eos % (Auto) (1.5-5.0) % Baso % (Auto) (0.0-3.0) % Gran # (1.4-6.5) Lymph # (Auto) (1.2-3.4) [place] # (Auto) (0.1-0.6) Eos # (Auto) (0.0-0.7) Baso # (Auto) (0.0-2.0) K/mm3 PT (9.0-11.5) sec Mix PT Baseline (< OR = 11.5) sec PT Incubation Time Lupus Anticoag PTT Mix Sodium (132-148) mmol/L Potassium (3.6-5.0) mmol/L Chloride (98-107) mmol/L Carbon Dioxide (21-33) mmol/L Anion Gap (10-20) BUN (7-21) mg/dL Creatinine (0.8-1.5) mg/dl Est GFR ( Amer) Est GFR (Non-Af Amer) POC Glucose (mg/dL) 64 L 105 97 (65-110) mg/dL Random Glucose (70-110) mg/dL Calcium (8.4-10.5) mg/dL Phosphorus (2.5-4.5) mg/dL Magnesium (1.7-2.2) mg/dL Total Bilirubin (0.2-1.3) mg/dL AST (17-59) U/L ALT (7-56) U/L Alkaline Phosphatase (38-126) U/L Troponin I ng/mL Total Protein (5.8-8.3) g/dL Albumin (3.0-4.8) g/dL Globulin gm/dL Albumin/Globulin Ratio (1.1-1.8) Cortisol AM Sample (4.46-22.7) ug/dL Prothrombin Mut Interp Prothrombin Gene Mutate Prothromb Gene Review 01/28/18 01/28/18 01/28/18 Range/Units 15:17 11:32 07:39 WBC (4.5-11.0) 10^3/uL RBC (3.5-6.1) 10^6/uL Hgb (14.0-18.0) g/dL Hct (42.0-52.0) % MCV (80.0-105.0) fl MCH (25.0-35.0) pg MCHC (31.0-37.0) g/dl RDW (11.5-14.5) % Plt Count (120.0-450.0) 10^3/uL MPV (7.0-11.0) fl Gran % (50.0-68.0) % Lymph % (Auto) (22.0-35.0) % [place] % (Auto) (1.0-6.0) % Eos % (Auto) (1.5-5.0) % Baso % (Auto) (0.0-3.0) % Gran # (1.4-6.5) Lymph # (Auto) (1.2-3.4) [place] # (Auto) (0.1-0.6) Eos # (Auto) (0.0-0.7) Baso # (Auto) (0.0-2.0) K/mm3 PT (9.0-11.5) sec Mix PT Baseline (< OR = 11.5) sec PT Incubation Time Lupus Anticoag PTT Mix Sodium (132-148) mmol/L Potassium (3.6-5.0) mmol/L Chloride (98-107) mmol/L Carbon Dioxide (21-33) mmol/L Anion Gap (10-20) BUN (7-21) mg/dL Creatinine (0.8-1.5) mg/dl Est GFR ( Amer) Est GFR (Non-Af Amer) POC Glucose (mg/dL) 103 302 H 259 H (65-110) mg/dL Random Glucose (70-110) mg/dL Calcium (8.4-10.5) mg/dL Phosphorus (2.5-4.5) mg/dL Magnesium (1.7-2.2) mg/dL Total Bilirubin (0.2-1.3) mg/dL AST (17-59) U/L ALT (7-56) U/L Alkaline Phosphatase (38-126) U/L Troponin I ng/mL Total Protein (5.8-8.3) g/dL Albumin (3.0-4.8) g/dL Globulin gm/dL Albumin/Globulin Ratio (1.1-1.8) Cortisol AM Sample (4.46-22.7) ug/dL Prothrombin Mut Interp Prothrombin Gene Mutate Prothromb Gene Review 01/25/18 01/25/18 Range/Units 09:00 09:00 WBC (4.5-11.0) 10^3/uL RBC (3.5-6.1) 10^6/uL Hgb (14.0-18.0) g/dL Hct (42.0-52.0) % MCV (80.0-105.0) fl MCH (25.0-35.0) pg MCHC (31.0-37.0) g/dl RDW (11.5-14.5) % Plt Count (120.0-450.0) 10^3/uL MPV (7.0-11.0) fl Gran % (50.0-68.0) % Lymph % (Auto) (22.0-35.0) % [place] % (Auto) (1.0-6.0) % Eos % (Auto) (1.5-5.0) % Baso % (Auto) (0.0-3.0) % Gran # (1.4-6.5) Lymph # (Auto) (1.2-3.4) [place] # (Auto) (0.1-0.6) Eos # (Auto) (0.0-0.7) Baso # (Auto) (0.0-2.0) K/mm3 PT 18.7 H (9.0-11.5) sec Mix PT Baseline 12.2 H (< OR = 11.5) sec PT Incubation Time Corrected Lupus Anticoag PTT Mix Corrected Sodium (132-148) mmol/L Potassium (3.6-5.0) mmol/L Chloride (98-107) mmol/L Carbon Dioxide (21-33) mmol/L Anion Gap (10-20) BUN (7-21) mg/dL Creatinine (0.8-1.5) mg/dl Est GFR ( Amer) Est GFR (Non-Af Amer) POC Glucose (mg/dL) (65-110) mg/dL Random Glucose (70-110) mg/dL Calcium (8.4-10.5) mg/dL Phosphorus (2.5-4.5) mg/dL Magnesium (1.7-2.2) mg/dL Total Bilirubin (0.2-1.3) mg/dL AST (17-59) U/L ALT (7-56) U/L Alkaline Phosphatase (38-126) U/L Troponin I ng/mL Total Protein (5.8-8.3) g/dL Albumin (3.0-4.8) g/dL Globulin gm/dL Albumin/Globulin Ratio (1.1-1.8) Cortisol AM Sample (4.46-22.7) ug/dL Prothrombin Mut Interp see note Prothrombin Gene Mutate see note Prothromb Gene Review see note Laboratory Results - last 24 hr 01/25/18 01/25/18 01/28/18 09:00 09:00 07:39 WBC RBC Hgb Hct MCV MCH MCHC RDW Plt Count MPV Gran % Lymph % (Auto) [place] % (Auto) Eos % (Auto) Baso % (Auto) Gran # Lymph # (Auto) [place] # (Auto) Eos # (Auto) Baso # (Auto) PT 18.7 H Mix PT Baseline 12.2 H PT Incubation Time Corrected Lupus Anticoag PTT Mix Corrected Sodium Potassium Chloride Carbon Dioxide Anion Gap BUN Creatinine Est GFR ( Amer) Est GFR (Non-Af Amer) POC Glucose (mg/dL) 259 H Random Glucose Calcium Phosphorus Magnesium Total Bilirubin AST ALT Alkaline Phosphatase Troponin I Total Protein Albumin Globulin Albumin/Globulin Ratio Cortisol AM Sample Prothrombin Mut Interp see note Prothrombin Gene Mutate see note Prothromb Gene Review see note 01/28/18 01/28/18 01/29/18 11:32 15:17 02:42 WBC RBC Hgb Hct MCV MCH MCHC RDW Plt Count MPV Gran % Lymph % (Auto) [place] % (Auto) Eos % (Auto) Baso % (Auto) Gran # Lymph # (Auto) [place] # (Auto) Eos # (Auto) Baso # (Auto) PT Mix PT Baseline PT Incubation Time Lupus Anticoag PTT Mix Sodium Potassium Chloride Carbon Dioxide Anion Gap BUN Creatinine Est GFR ( Amer) Est GFR (Non-Af Amer) POC Glucose (mg/dL) 302 H 103 97 Random Glucose Calcium Phosphorus Magnesium Total Bilirubin AST ALT Alkaline Phosphatase Troponin I Total Protein Albumin Globulin Albumin/Globulin Ratio Cortisol AM Sample Prothrombin Mut Interp Prothrombin Gene Mutate Prothromb Gene Review 01/29/18 01/29/18 01/29/18 06:50 07:21 15:58 WBC RBC Hgb Hct MCV MCH MCHC RDW Plt Count MPV Gran % Lymph % (Auto) [place] % (Auto) Eos % (Auto) Baso % (Auto) Gran # Lymph # (Auto) [place] # (Auto) Eos # (Auto) Baso # (Auto) PT Mix PT Baseline PT Incubation Time Lupus Anticoag PTT Mix Sodium Potassium Chloride Carbon Dioxide Anion Gap BUN Creatinine Est GFR ( Amer) Est GFR (Non-Af Amer) POC Glucose (mg/dL) 105 64 L 77 Random Glucose Calcium Phosphorus Magnesium Total Bilirubin AST ALT Alkaline Phosphatase Troponin I Total Protein Albumin Globulin Albumin/Globulin Ratio Cortisol AM Sample Prothrombin Mut Interp Prothrombin Gene Mutate Prothromb Gene Review 01/29/18 01/30/18 01/30/18 21:21 05:31 05:31 WBC 16.8 H D RBC 2.92 L Hgb 9.0 L Hct 27.5 L MCV 94.2 MCH 30.8 MCHC 32.7 RDW 18.8 H Plt Count 121 MPV 11.4 H Gran % 84.2 H Lymph % (Auto) 6.5 L [place] % (Auto) 9.1 H Eos % (Auto) 0.1 L Baso % (Auto) 0.1 Gran # 14.16 H Lymph # (Auto) 1.1 L [place] # (Auto) 1.5 H Eos # (Auto) 0.0 Baso # (Auto) 0.01 PT Mix PT Baseline PT Incubation Time Lupus Anticoag PTT Mix Sodium 138 Potassium 3.4 L Chloride 101 Carbon Dioxide 31 Anion Gap 9 L BUN 30 H Creatinine 2.2 H Est GFR ( Amer) 38 Est GFR (Non-Af Amer) 31 POC Glucose (mg/dL) 154 H Random Glucose 116 H Calcium 7.6 L Phosphorus 4.5 Magnesium 2.0 Total Bilirubin 1.4 H AST 83 H D ALT 42 Alkaline Phosphatase 139 H D Troponin I 0.45 H* D Total Protein 5.5 L Albumin 2.1 L Globulin 3.4 Albumin/Globulin Ratio 0.6 L Cortisol AM Sample Prothrombin Mut Interp Prothrombin Gene Mutate Prothromb Gene Review 01/30/18 01/30/18 05:31 11:34 WBC RBC Hgb Hct MCV MCH MCHC RDW Plt Count MPV Gran % Lymph % (Auto) [place] % (Auto) Eos % (Auto) Baso % (Auto) Gran # Lymph # (Auto) [place] # (Auto) Eos # (Auto) Baso # (Auto) PT Mix PT Baseline PT Incubation Time Lupus Anticoag PTT Mix Sodium Potassium Chloride Carbon Dioxide Anion Gap BUN Creatinine Est GFR ( Amer) Est GFR (Non-Af Amer) POC Glucose (mg/dL) 128 H Random Glucose Calcium Phosphorus Magnesium Total Bilirubin AST ALT Alkaline Phosphatase Troponin I Total Protein Albumin Globulin Albumin/Globulin Ratio Cortisol AM Sample 24.8 H Prothrombin Mut Interp Prothrombin Gene Mutate Prothromb Gene Review Critical Care Progress Note - Nutrition Nutrition: Nutrition Category Date Time Status Renal Diet [DIET] Diets 01/23/18 Dinner Ordered Addendum Addendum: 01/30/18 17:59 ICU Attending Addendum for 01/27/18 Patient seen and examined on 01/27. Case reviewed on round with housestaff. Agree with resident note above with the following additions/exceptions: 52 y/o M with PMHx ESRD on HD TTS, PAD, IDDM, CHF, COPD, CAD s/p stents, pacemaker POD5 s/p debridement of necrotic R BKA stump admitted to ICU for hypotension 2/2 acute hemorrhage from R BKA. Bleeding appears to have stopped HB stable BP stable surg managing BKA ABx as per ID for GPC in the blood and serratia from wound hemodynamically stable for transfer out of ICU pull out TLC and a-line Rest of care as above Maia Mcgregor MD Pulmonary Critical Care and Sleep Medicine
[2018-01-30] MEDS: MEROPENEM 500 MG in NS 500 MG/50 ML BAG IVPB SCH ×2 (11:04→21:07)
--- NOTE | 2018-01-30 12:10 | PN ---
DATE: 01/30/2018 REASON FOR CONSULTATION AND FOLLOWUP: Cardiac evaluation, history of coronary artery disease, status post rapid response in ICU. SUBJECTIVE: The patient denies any chest pain, shortness of breath, or any palpitations. PHYSICAL EXAMINATION: GENERAL: Not in any apparent distress. VITAL SIGNS: Temperature afebrile, heart rate 75, blood pressure 110/30. HEENT: PERRLA. Extraocular muscles intact. NECK: Supple. No carotid bruits or thyromegaly. CHEST: Clear to auscultation. HEART: S1 and S2, regular. ABDOMEN: Soft. EXTREMITIES: Clubbing and cyanosis negative. LABORATORY DATA: Blood workup as follows: WBC 16.8, hemoglobin 9, hematocrit 27.5, platelet count 121. Chemistry shows sodium 140, potassium 3.9, chloride 102, carbon dioxide 24, anion gap 16, BUN 35, creatinine 3.3. IMPRESSION: A 52-year-old male with past medical history of diabetes, hypertension, hyperlipidemia, end-stage renal disease, full blown complications of diabetes including diabetic nephropathy, neuropathy, retinopathy, peripheral arterial disease, status post right below-knee amputation because of severe peripheral arterial disease and gangrenous foot, recently revision of stump of right below-knee amputation was done, complication over the weekend with severe hemorrhage, bleeding from the stump site region, status post rapid response requiring 3 units of packed red blood cells, moved to Intensive Care Unit. History of dual chamber pacemaker, MRI safe, history of amputation of left middle finger, severe peripheral arterial disease. The patient had some troponin positive with borderline in face of renal insufficiency, severe anemia, probably significant unknown, definitely, the patient has coronary artery disease, but not a candidate to go to the slab depiler operator because: 1. The patient is asymptomatic. 2. The patient is bleeding and Brilinta is on hold. If the coronary intervention is done and the patient needs a stent, the patient needs mandatory Brilinta and aspirin because the patient is resistant to Plavix. So as soon as the patient remain chest pain free, we will try to treat conservatively. CAT scan shows large bilateral pleural effusion with atelectasis. Repeat chest x-ray today to see if moderate size left pleural effusion extending to the left apex. RECOMMENDATIONS: We will get ultrasound of the chest and suggest Dr. Wynn for possible thoracentesis. We will ask Dr. Abbey for possible thoracentesis. Overall, the patient's condition is critical. long term care pharmacist prognosis is guarded. Discussed with family, ____ called and discussed on the phone. Jarred Erickson MD
--- NOTE | 2018-01-30 12:59 | CP.PCM.PN ---
<Jojo Crouch - Last Filed: 01/30/18 15:45> Subjective - Date & Time of Evaluation Date of Evaluation: 01/30/18 Time of Evaluation: 07:10 - Subjective Subjective: Jojo Crouch DO, PGY-2: Progress Note for Dr. Potter Patient was seen and examined at bedside. His right pinky finger is . He is going to get a thoracentesis today. He may also get an angiogram to take a look a the vascular supply to the right arm. He is now growing gram positive cocci in chains and in pairs. He is in the ICU but transferred out. His TLC and arterial line were removed today. His prognosis is extremely poor. He had 2,800 ml of ultrafiltrate removed yesterday. Objective - Vital Signs/Intake and Output Vital Signs (last 24 hours): Temp Pulse Resp BP Pulse Ox 98.2 F 78 15 106/50 L 100 01/29/18 12:00 01/30/18 11:04 01/29/18 19:02 01/30/18 11:04 01/28/18 00:00 - Medications Medications: Current Medications Acetaminophen (Tylenol 325mg Tab) 650 mg PO Q6H PRN PRN Reason: Pain, Mild (1-3) Albuterol/Ipratropium (Duoneb 3 Mg/0.5 Mg (3 Ml) Ud) 3 ml IH [id number] PRN PRN Reason: Shortness of Breath Last Admin: 01/27/18 13:07 Dose: 3 ml Arformoterol Tartrate (Brovana) 15 mcg IH [id number] [facility] Last Admin: 01/30/18 07:44 Dose: 15 mcg Aspirin (Ecotrin) 81 mg PO DAILY [facility] Last Admin: 01/30/18 11:03 Dose: 81 mg Atorvastatin Calcium (Lipitor) 80 mg PO HS [facility] Last Admin: 01/29/18 21:22 Dose: 80 mg Budesonide (Pulmicort Respules) 0.5 mg IH Q12H [facility] Last Admin: 01/30/18 07:44 Dose: 0.5 mg Collagenase (Santyl) 1 gm TOP DAILY [facility] Last Admin: 01/29/18 18:03 Dose: 1 applic Duloxetine HCl (Cymbalta) 40 mg PO DAILY [facility] Last Admin: 01/30/18 11:03 Dose: 40 mg Famotidine (Pepcid) 20 mg PO HS [facility] Last Admin: 01/29/18 22:06 Dose: 20 mg Fenofibrate (Tricor) 145 mg PO DAILY [facility] Last Admin: 01/30/18 11:05 Dose: 145 mg Fluticasone Propionate (Flonase) 1 actuation NS DAILY PRN PRN Reason: Nasal congestion Guaifenesin (Mucinex La) 600 mg PO BID PRN PRN Reason: Cough Heparin Sodium (Porcine) (Heparin) 5,000 units SC Q12 [facility]; Protocol Last Admin: 01/26/18 15:40 Dose: Not Given NOREPINEPHRINE BIT/0.9 % NACL (Levophed 4 Mg/ 250 Ml Ns Premixed) 4 mg in 250 mls @ 15 mls/hr IV .[id number] PRN; Protocol PRN Reason: TITRATE PER MD ORDER Last Titration: 01/29/18 14:00 Dose: 0 mcg/min, 0 mls/hr Meropenem/Sodium Chloride (Merrem Iv 500 Mg/Ns 50 Ml) 500 mg in 50 mls @ 100 mls/hr IVPB Q12 [facility]; Protocol Stop: 02/05/18 10:01 Last Admin: 01/30/18 11:04 Dose: 100 mls/hr Daptomycin 700 mg/ Sodium (Chloride) 100 mls @ 200 mls/hr IV QOTHERDAY [facility] Stop: 02/06/18 10:01 Insulin Detemir (Levemir) 10 unit SC HS [facility] Last Admin: 01/29/18 21:22 Dose: 10 unit Insulin Human Regular (Humulin R High) 0 units SC ACHS [facility]; Protocol Last Admin: 01/30/18 08:29 Dose: Not Given Insulin Human Regular (Humulin R) 5 units SC AC [facility] Latanoprost (Xalatan Opht) 0 ml OU HS [facility] Last Admin: 01/29/18 21:23 Dose: Not Given Levothyroxine Sodium (Synthroid) 50 mcg PO 0600 [facility] Last Admin: 01/30/18 06:16 Dose: 50 mcg Metoprolol Tartrate (Lopressor) 25 mg PO BID [facility] Last Admin: 01/30/18 11:04 Dose: Not Given Midodrine (Proamatine) 5 mg PO TID [facility] Last Admin: 01/30/18 11:05 Dose: 5 mg Ondansetron HCl (Zofran Inj) 4 mg IVP Q6H PRN PRN Reason: Nausea/Vomiting Last Admin: 01/29/18 11:58 Dose: 4 mg Oxycodone/Acetaminophen (Percocet 5/325 Mg Tab) 1 tab PO Q4H PRN PRN Reason: Pain, moderate (4-7) Stop: 02/02/18 11:08 Last Admin: 01/30/18 11:21 Dose: 1 tab Sodium Chloride ([place] Nasal [place]) 0 ml NS Q2 PRN PRN Reason: nasal congestion. Ticagrelor (Brilinta) 90 mg PO BID [facility] Last Admin: 01/29/18 15:03 Dose: 90 mg Zaleplon (Sonata) 5 mg PO HS [facility] Last Admin: 01/29/18 21:22 Dose: 5 mg - Labs Labs: 01/30/18 05:31 01/30/18 05:31 PT 20.6 SECONDS (9.4-12.5) H 01/23/18 08:50 INR 1.77 01/23/18 08:50 APTT 33.8 Seconds (25.1-36.5) 01/23/18 08:50 - Constitutional Appears: Chronically Ill - Head Exam Additional comments: bradley facies - Eye Exam Eye Exam: EOMI, Normal appearance - ENT Exam ENT Exam: Mucous Membranes Dry - Neck Exam Neck Exam: Normal Inspection - Respiratory Exam Respiratory Exam: Decreased Breath Sounds (bilaterally, left breath sounds diminished more than right) - Cardiovascular Exam Cardiovascular Exam: RRR, +S1, +S2 - GI/Abdominal Exam GI & Abdominal Exam: Soft, Normal Bowel Sounds. absent: Distended, Guarding, Tenderness - Extremities Exam Extremities Exam: Normal Inspection. absent: Calf Tenderness - Back Exam Back Exam: NORMAL INSPECTION. absent: CVA tenderness (L), CVA tenderness (R) - Neurological Exam Neurological Exam: Alert, Awake, Oriented x3 - Psychiatric Exam Psychiatric exam: Normal Affect, Normal Mood - Skin Skin Exam: Dry, Intact, Normal Color, Warm Additional comments: right pinky is Assessment and Plan - Assessment and Plan (Free Text) Assessment: 52 year old male with a past medical history notable for ESRD, CAD with NC 4 months ago, right BKA, and left third digit amputation who presents with melena and diarrhea. His blood cultures are growing Serratia Marcesans from infected right BKA. Patient is s/p local debridement and wound vacuum placement of the right BKA. Right pinky finger has , we will let it fall off. Interventional radiologist was consulted who is now performing a thoracentesis and willsomeday in the future perform an angiogram to look at vasculature. Prognosis is extremely poor. 1) Sepsis secondary to Serratia Marcescans bacteremia from right BKA stump infection - Wound care per surgery - New blood cultures growing gram positive cocci in pairs and chains - Infectious Disease is following, case was discussed in detail with the resident on Infectious Disease. One repeat BC + for Enterococcus. Will await final results to rule out VRE. Today is day #13 out of 14 days of Merrem. Will d/c Vancomycin and start Daptomycin q48hrs. 2) Hemmorhagic shock s/p transfusion of 3 units of PRBCS and 1 unit of leukocyte reduced platelets; resolved - Norepinephrine has been discontinued - ICU team started Midodrine for blood pressure, will monitor blood pressure 3) of right pinky secondary to dry gangrene - Dr. Wynn recommends angiogram of the right arm to be performed sometime in the future 4) ESRD - Continue with dialysis - 2,800 ml of ultrafiltrate removed yesterday 3) CAD - Continue Brillinta 90 mg BID - Aspirin 81 mg - Metroprolol 25 mg BID - Atorvastatin 80 mg HS - Dr. Erickson consulted, appreciate recommendations 4) DM II - Humulin 5 mg AC with fingerstick BG ACHS - Levemir 10 mg HS - Blood sugars goals are between 150-200 5) Upper respiratory symptoms - Mucinex LA 650 PRN - Flonase PRN - Duonebs q6h PRN for dyspnea 6) Hypothyroidism - Levothyroxine 50 mcg PO daily 7) Hyperlipidemia - Fenofibrate 145 mg PO daily 8) Glaucoma - Latanoprost drops OU 10) RENATA - Continue with noninvasive positive airway pressure as per pulmonology's recommendations 11) Depressed mood in a patient with multiple, life-threatening comorbidities - Dr. Malin consulted, patient may benefit from cognitive behavioral therapy and medications, appreciate recommendations - Agree with Sonata and Duloxetine 12) Physical therapy in the setting of recent BKA - Physical therapy evaluation submitted 13) DVT/GI prophylaxis - Heparin 5,000 q12h - Pepcid 20 mg HS Disposition: Extremely guarded, hospice is not out of the question. Case was reviewed and discussed with attending physician, Dr. Potter <Gallo Potter - Last Filed: 01/30/18 17:15> Objective - Vital Signs/Intake and Output Vital Signs (last 24 hours): Temp Pulse Resp BP Pulse Ox 98.2 F 78 15 106/50 L 100 01/29/18 12:00 01/30/18 11:04 01/29/18 19:02 01/30/18 11:04 01/28/18 00:00 - Medications Medications: Current Medications Acetaminophen (Tylenol 325mg Tab) 650 mg PO Q6H PRN PRN Reason: Pain, Mild (1-3) Albuterol/Ipratropium (Duoneb 3 Mg/0.5 Mg (3 Ml) Ud) 3 ml IH [id number] PRN PRN Reason: Shortness of Breath Last Admin: 01/27/18 13:07 Dose: 3 ml Arformoterol Tartrate (Brovana) 15 mcg IH [id number] [facility] Last Admin: 01/30/18 07:44 Dose: 15 mcg Aspirin (Ecotrin) 81 mg PO DAILY [facility] Last Admin: 01/30/18 11:03 Dose: 81 mg Atorvastatin Calcium (Lipitor) 80 mg PO HS [facility] Last Admin: 01/29/18 21:22 Dose: 80 mg Budesonide (Pulmicort Respules) 0.5 mg IH Q12H [facility] Last Admin: 01/30/18 07:44 Dose: 0.5 mg Collagenase (Santyl) 1 gm TOP DAILY [facility] Last Admin: 01/30/18 13:14 Dose: Not Given Duloxetine HCl (Cymbalta) 40 mg PO DAILY [facility] Last Admin: 01/30/18 11:03 Dose: 40 mg Famotidine (Pepcid) 20 mg PO HS [facility] Last Admin: 01/29/18 22:06 Dose: 20 mg Fenofibrate (Tricor) 145 mg PO DAILY [facility] Last Admin: 01/30/18 11:05 Dose: 145 mg Fluticasone Propionate (Flonase) 1 actuation NS DAILY PRN PRN Reason: Nasal congestion Guaifenesin (Mucinex La) 600 mg PO BID PRN PRN Reason: Cough Heparin Sodium (Porcine) (Heparin) 5,000 units SC Q12 [facility]; Protocol Last Admin: 01/26/18 15:40 Dose: Not Given NOREPINEPHRINE BIT/0.9 % NACL (Levophed 4 Mg/ 250 Ml Ns Premixed) 4 mg in 250 mls @ 15 mls/hr IV .[id number] PRN; Protocol PRN Reason: TITRATE PER MD ORDER Last Titration: 01/29/18 14:00 Dose: 0 mcg/min, 0 mls/hr Meropenem/Sodium Chloride (Merrem Iv 500 Mg/Ns 50 Ml) 500 mg in 50 mls @ 100 mls/hr IVPB Q12 [facility]; Protocol Stop: 02/05/18 10:01 Last Admin: 01/30/18 11:04 Dose: 100 mls/hr Daptomycin 700 mg/ Sodium (Chloride) 100 mls @ 200 mls/hr IV QOTHERDAY [facility] Stop: 02/06/18 10:01 Last Admin: 01/30/18 13:00 Dose: 200 mls/hr Insulin Detemir (Levemir) 10 unit SC HS [facility] Last Admin: 01/29/18 21:22 Dose: 10 unit Insulin Human Regular (Humulin R High) 0 units SC ACHS [facility]; Protocol Last Admin: 01/30/18 11:30 Dose: Not Given Insulin Human Regular (Humulin R) 5 units SC AC [facility] Last Admin: 01/30/18 11:30 Dose: Not Given Latanoprost (Xalatan Opht) 0 ml OU HS [facility] Last Admin: 01/29/18 21:23 Dose: Not Given Levothyroxine Sodium (Synthroid) 50 mcg PO 0600 [facility] Last Admin: 01/30/18 06:16 Dose: 50 mcg Metoprolol Tartrate (Lopressor) 25 mg PO BID [facility] Last Admin: 01/30/18 11:04 Dose: Not Given Midodrine (Proamatine) 5 mg PO TID [facility] Last Admin: 01/30/18 11:05 Dose: 5 mg Ondansetron HCl (Zofran Inj) 4 mg IVP Q6H PRN PRN Reason: Nausea/Vomiting Last Admin: 01/29/18 11:58 Dose: 4 mg Oxycodone/Acetaminophen (Percocet 5/325 Mg Tab) 1 tab PO Q4H PRN PRN Reason: Pain, moderate (4-7) Stop: 02/02/18 11:08 Last Admin: 01/30/18 11:21 Dose: 1 tab Sodium Chloride ([place] Nasal [place]) 0 ml NS Q2 PRN PRN Reason: nasal congestion. Ticagrelor (Brilinta) 90 mg PO BID [facility] Last Admin: 01/29/18 15:03 Dose: 90 mg Zaleplon (Sonata) 5 mg PO HS [facility] Last Admin: 01/29/18 21:22 Dose: 5 mg - Labs Labs: 01/30/18 05:31 01/30/18 05:31 PT 18.7 sec (9.0-11.5) H 01/25/18 09:00 INR 1.77 01/23/18 08:50 APTT 33.8 Seconds (25.1-36.5) 01/23/18 08:50 Assessment and Plan - Assessment and Plan (Free Text) Assessment: Pt seen and examined. I have reviewed the note of the medical technologist chief and agree with it. I have discussed the assessment and plan with the resident. I have reviewed the patient's labs and medications. Pt with BCx that is positive for enterococcus. He is on Daptomycin. He will need L thoracentesis for effusion. I spoke to IR (Dr Alfredo Wynn). He will also need an angiogram. He will get HD in the am. Will need removal of his arterial line to decrease risk of infection. Pt is on Heparin for DVT prophylaxis. His prognosis is poor. His bleeding is controlled from his R BKA wound. His L 3rd finger base that shows progression of his gangrene. CAD is stable on ASA and Metoprolol.
[2018-01-30] MEDS: DAPTOmycin 700 MG in Sodium Chloride 0.9% 100 ML IV SCH (13:00)
[2018-01-30] MEDS: Collagenase 250 Units/gm Ointment(30 gm) TOP SCH (13:14)
--- NOTE | 2018-01-30 19:29 | US ---
PROCEDURE: Ultrasound guided left thoracentesis. CLINICAL HISTORY: End-stage renal disease. Bilateral pleural effusions. Shortness of breath. Needs therapeutic thoracentesis PHYSICIAN(S): Alfredo Wynn MD. TECHNIQUE: The relative risks and indications of the procedure were explained to the patient and his sister and consent obtained. The patient was placed in a right decubitus position in bed and sonography of the left chest performed. This revealed a small to moderate leftpleural effusion. A left posterolateral intercostal approach was selected and the area prepped and draped usual sterile fashion. 1% Xylocaine was used to anesthetize the skin and soft tissues. A 7 [place] thoracentesis catheter was trocared into the left pleural cavity and 1200 cc of clear straw-colored fluid aspirated. The appropriate labs were sent. IMPRESSION: 1. Ultrasound guided right thoracentesis. 1200 cc of clear straw-colored fluid was aspirated.
--- NOTE | 2018-01-30 20:40 | CP.PCM.PN ---
Subjective - Date & Time of Evaluation Date of Evaluation: 01/30/18 Time of Evaluation: 18:00 - Subjective Subjective: Feels weak Objective - Vital Signs/Intake and Output Vital Signs (last 24 hours): Temp Pulse Resp BP Pulse Ox 98.2 F 78 16 99/45 L 93 L 01/29/18 12:00 01/30/18 17:33 01/30/18 17:33 01/30/18 18:10 01/30/18 17:30 Intake and Output: 01/30/18 01/31/18 18:59 06:59 Intake Total 390 Output Total 0 Balance 390 - Medications Medications: Current Medications Acetaminophen (Tylenol 325mg Tab) 650 mg PO Q6H PRN PRN Reason: Pain, Mild (1-3) Albuterol/Ipratropium (Duoneb 3 Mg/0.5 Mg (3 Ml) Ud) 3 ml IH [id number] PRN PRN Reason: Shortness of Breath Last Admin: 01/27/18 13:07 Dose: 3 ml Arformoterol Tartrate (Brovana) 15 mcg IH [id number] [facility] Last Admin: 01/30/18 20:03 Dose: Not Given Aspirin (Ecotrin) 81 mg PO DAILY [facility] Last Admin: 01/30/18 11:03 Dose: 81 mg Atorvastatin Calcium (Lipitor) 80 mg PO HS [facility] Last Admin: 01/29/18 21:22 Dose: 80 mg Budesonide (Pulmicort Respules) 0.5 mg IH Q12H [facility] Last Admin: 01/30/18 20:03 Dose: Not Given Collagenase (Santyl) 1 gm TOP DAILY [facility] Last Admin: 01/30/18 13:14 Dose: Not Given Duloxetine HCl (Cymbalta) 40 mg PO DAILY [facility] Last Admin: 01/30/18 11:03 Dose: 40 mg Famotidine (Pepcid) 20 mg PO HS [facility] Last Admin: 01/29/18 22:06 Dose: 20 mg Fenofibrate (Tricor) 145 mg PO DAILY [facility] Last Admin: 01/30/18 11:05 Dose: 145 mg Fluticasone Propionate (Flonase) 1 actuation NS DAILY PRN PRN Reason: Nasal congestion Guaifenesin (Mucinex La) 600 mg PO BID PRN PRN Reason: Cough Heparin Sodium (Porcine) (Heparin) 5,000 units SC Q12 [facility]; Protocol Last Admin: 01/26/18 15:40 Dose: Not Given NOREPINEPHRINE BIT/0.9 % NACL (Levophed 4 Mg/ 250 Ml Ns Premixed) 4 mg in 250 mls @ 15 mls/hr IV .[id number] PRN; Protocol PRN Reason: TITRATE PER MD ORDER Last Titration: 01/29/18 14:00 Dose: 0 mcg/min, 0 mls/hr Meropenem/Sodium Chloride (Merrem Iv 500 Mg/Ns 50 Ml) 500 mg in 50 mls @ 100 mls/hr IVPB Q12 [facility]; Protocol Stop: 02/05/18 10:01 Last Admin: 01/30/18 11:04 Dose: 100 mls/hr Daptomycin 700 mg/ Sodium (Chloride) 100 mls @ 200 mls/hr IV QOTHERDAY [facility] Stop: 02/06/18 10:01 Last Admin: 01/30/18 13:00 Dose: 200 mls/hr Insulin Detemir (Levemir) 10 unit SC HS [facility] Last Admin: 01/29/18 21:22 Dose: 10 unit Insulin Human Regular (Humulin R High) 0 units SC ACHS [facility]; Protocol Last Admin: 01/30/18 16:30 Dose: Not Given Insulin Human Regular (Humulin R) 5 units SC AC [facility] Last Admin: 01/30/18 16:30 Dose: Not Given Latanoprost (Xalatan Opht) 0 ml OU HS [facility] Last Admin: 01/29/18 21:23 Dose: Not Given Levothyroxine Sodium (Synthroid) 50 mcg PO 0600 [facility] Last Admin: 01/30/18 06:16 Dose: 50 mcg Metoprolol Tartrate (Lopressor) 25 mg PO BID [facility] Last Admin: 01/30/18 18:10 Dose: Not Given Midodrine (Proamatine) 5 mg PO TID [facility] Last Admin: 01/30/18 18:11 Dose: Not Given Ondansetron HCl (Zofran Inj) 4 mg IVP Q6H PRN PRN Reason: Nausea/Vomiting Last Admin: 01/29/18 11:58 Dose: 4 mg Oxycodone/Acetaminophen (Percocet 5/325 Mg Tab) 1 tab PO Q4H PRN PRN Reason: Pain, moderate (4-7) Stop: 02/02/18 11:08 Last Admin: 01/30/18 11:21 Dose: 1 tab Sodium Chloride ([place] Nasal [place]) 0 ml NS Q2 PRN PRN Reason: nasal congestion. Ticagrelor (Brilinta) 90 mg PO BID [facility] Last Admin: 01/29/18 15:03 Dose: 90 mg Zaleplon (Sonata) 5 mg PO HS [facility] Last Admin: 01/29/18 21:22 Dose: 5 mg - Labs Labs: 01/30/18 05:31 01/30/18 05:31 PT 18.7 sec (9.0-11.5) H 01/25/18 09:00 INR 1.77 01/23/18 08:50 APTT 33.8 Seconds (25.1-36.5) 01/23/18 08:50 - Head Exam Head Exam: ATRAUMATIC - Eye Exam Eye Exam: Normal appearance - ENT Exam ENT Exam: Mucous Membranes Dry - Respiratory Exam Respiratory Exam: Decreased Breath Sounds - Cardiovascular Exam Cardiovascular Exam: +S1, +S2 - GI/Abdominal Exam GI & Abdominal Exam: Normal Bowel Sounds Assessment and Plan (1) Hypercoagulable state Assessment & Plan: noted slightly diminished protein S activity; may be low due recent bleeding/clotting on dual antiplatelet therapy Status: Acute (2) Thrombocytopenia Assessment & Plan: mild improved from prior HIV and hepatitis B/C negative antiphospholipid Ab panel negative Status: Acute (3) Anemia Assessment & Plan: anemia of CKD anemia of chronic disease right LE stump bleeding transfusion support PRN Status: Acute (4) Leukocytosis Assessment & Plan: on antibiotics Status: Acute (5) Coagulopathy Assessment & Plan: repeat mixing study pending prior study corrected suggesting factor deficiency/nutritional coagulopathy Status: Acute
[2018-01-30 20:59] LABS: BODY FLUID TYPE PLEURAL
[2018-01-30] MEDS: Latanoprost 2.5 ml Opht Soln OU SCH (21:06)
[2018-01-30 21:55] LABS: BF GROSS APPEARANCE CLEAR (CLEAR)
[2018-01-30 22:00] LABS: BODY FLUID MONO/MACROPHAGE 0 % (0-0); BODY FLUID TOTAL COUNT 100 (0-0)
[2018-01-30 22:07] LABS: BODY FLUID RBC 133.1 /uL (0.0-0.0)
[2018-01-30] MEDS: Insulin Detemir 100 units/ml Vial (Levemir) SC SCH (22:22)
[2018-01-31] MEDS: Levothyroxine 25 MCG TAB PO SCH (05:57)
--- NOTE | 2018-01-31 06:49 | CP.PCM.PN ---
<Lolis Rivas - Last Filed: 01/31/18 10:16> Subjective - Date & Time of Evaluation Date of Evaluation: 01/31/18 Time of Evaluation: 07:00 - Subjective Subjective: Infectious Disease Progress Note for Simon Zepeda PGY3 Patient seen and examined at bedside. He is resting in bed this morning getting bedside HD. He had a thoracentesis yesterday. Patient reports his shortness of breath improved. He has no other complaints and remains afebrile. Objective - Vital Signs/Intake and Output Vital Signs (last 24 hours): Temp Pulse Resp BP Pulse Ox 98.2 F 78 9 L 79/37 L 95 01/29/18 12:00 01/31/18 04:30 01/31/18 04:30 01/31/18 04:00 01/30/18 22:00 Intake and Output: 01/30/18 01/31/18 18:59 06:59 Intake Total 390 Output Total 0 Balance 390 - Medications Medications: Current Medications Acetaminophen (Tylenol 325mg Tab) 650 mg PO Q6H PRN PRN Reason: Pain, Mild (1-3) Albuterol/Ipratropium (Duoneb 3 Mg/0.5 Mg (3 Ml) Ud) 3 ml IH [id number] PRN PRN Reason: Shortness of Breath Last Admin: 01/27/18 13:07 Dose: 3 ml Arformoterol Tartrate (Brovana) 15 mcg IH [id number] [facility] Last Admin: 01/30/18 20:03 Dose: Not Given Aspirin (Ecotrin) 81 mg PO DAILY [facility] Last Admin: 01/30/18 11:03 Dose: 81 mg Atorvastatin Calcium (Lipitor) 80 mg PO HS [facility] Last Admin: 01/30/18 21:06 Dose: 80 mg Budesonide (Pulmicort Respules) 0.5 mg IH Q12H [facility] Last Admin: 01/30/18 20:03 Dose: Not Given Collagenase (Santyl) 1 gm TOP DAILY [facility] Last Admin: 01/30/18 13:14 Dose: Not Given Duloxetine HCl (Cymbalta) 40 mg PO DAILY [facility] Last Admin: 01/30/18 11:03 Dose: 40 mg Famotidine (Pepcid) 20 mg PO HS [facility] Last Admin: 01/29/18 22:06 Dose: 20 mg Fenofibrate (Tricor) 145 mg PO DAILY [facility] Last Admin: 01/30/18 11:05 Dose: 145 mg Fluticasone Propionate (Flonase) 1 actuation NS DAILY PRN PRN Reason: Nasal congestion Guaifenesin (Mucinex La) 600 mg PO BID PRN PRN Reason: Cough Heparin Sodium (Porcine) (Heparin) 5,000 units SC Q12 [facility]; Protocol Last Admin: 01/26/18 15:40 Dose: Not Given NOREPINEPHRINE BIT/0.9 % NACL (Levophed 4 Mg/ 250 Ml Ns Premixed) 4 mg in 250 mls @ 15 mls/hr IV .[id number] PRN; Protocol PRN Reason: TITRATE PER MD ORDER Last Titration: 01/29/18 14:00 Dose: 0 mcg/min, 0 mls/hr Meropenem/Sodium Chloride (Merrem Iv 500 Mg/Ns 50 Ml) 500 mg in 50 mls @ 100 mls/hr IVPB Q12 [facility]; Protocol Stop: 02/05/18 10:01 Last Admin: 01/30/18 21:07 Dose: 100 mls/hr Daptomycin 700 mg/ Sodium (Chloride) 100 mls @ 200 mls/hr IV QOTHERDAY [facility] Stop: 02/06/18 10:01 Last Admin: 01/30/18 13:00 Dose: 200 mls/hr Insulin Detemir (Levemir) 10 unit SC HS [facility] Last Admin: 01/30/18 22:22 Dose: 10 unit Insulin Human Regular (Humulin R High) 0 units SC ACHS [facility]; Protocol Last Admin: 01/30/18 22:19 Dose: Not Given Insulin Human Regular (Humulin R) 5 units SC AC [facility] Last Admin: 01/30/18 16:30 Dose: Not Given Latanoprost (Xalatan Opht) 0 ml OU HS [facility] Last Admin: 01/30/18 21:06 Dose: 2.5 ml Levothyroxine Sodium (Synthroid) 50 mcg PO 0600 [facility] Last Admin: 01/31/18 05:57 Dose: 50 mcg Metoprolol Tartrate (Lopressor) 25 mg PO BID [facility] Last Admin: 01/30/18 18:10 Dose: Not Given Midodrine (Proamatine) 5 mg PO TID [facility] Last Admin: 01/30/18 18:11 Dose: Not Given Ondansetron HCl (Zofran Inj) 4 mg IVP Q6H PRN PRN Reason: Nausea/Vomiting Last Admin: 01/29/18 11:58 Dose: 4 mg Oxycodone/Acetaminophen (Percocet 5/325 Mg Tab) 1 tab PO Q4H PRN PRN Reason: Pain, moderate (4-7) Stop: 02/02/18 11:08 Last Admin: 01/30/18 11:21 Dose: 1 tab Sodium Chloride (Grampian Nasal [place]) 0 ml NS Q2 PRN PRN Reason: nasal congestion. Ticagrelor (Brilinta) 90 mg PO BID [facility] Last Admin: 01/29/18 15:03 Dose: 90 mg Zaleplon (Sonata) 5 mg PO HS [facility] Last Admin: 01/30/18 21:06 Dose: 5 mg - Labs Labs: 01/30/18 05:31 01/30/18 05:31 PT 18.7 sec (9.0-11.5) H 01/25/18 09:00 INR 1.77 01/23/18 08:50 APTT 33.8 Seconds (25.1-36.5) 01/23/18 08:50 - Constitutional Appears: No Acute Distress, Chronically Ill - Head Exam Head Exam: ATRAUMATIC, NORMAL INSPECTION, NORMOCEPHALIC - Eye Exam Eye Exam: Normal appearance, PERRL Pupil Exam: NORMAL ACCOMODATION, PERRL - ENT Exam ENT Exam: Mucous Membranes Moist - Neck Exam Neck Exam: Full ROM - Respiratory Exam Respiratory Exam: Rales, NORMAL BREATHING PATTERN. absent: Rhonchi, Wheezes - Cardiovascular Exam Cardiovascular Exam: REGULAR RHYTHM, +S1, +S2, Murmur. absent: Gallop, Rubs - GI/Abdominal Exam GI & Abdominal Exam: Soft, Normal Bowel Sounds. absent: Guarding, Rigid, Tender ness, Mass, Rebound - Extremities Exam Additional comments: R leg stump wound vac in place- sanginous drainage R pinky finger necrotic - Neurological Exam Neurological Exam: Alert, Awake, CN II-XII Intact, Oriented x3 - Psychiatric Exam Psychiatric exam: Normal Affect, Normal Mood - Skin Skin Exam: Dry, Warm Assessment and Plan - Assessment and Plan (Free Text) Assessment: 1. Sepsis - secondary to R stump cellulitis s/p debridement - Positive for Serratia Bacteremia 2. R TMA stump gangrene 3. LLE pleural effusion s/p thoracentesis 4. Hx of Guerline glabrata fungemia 5. Hx of bilateral HCAP 6. Hx of sepsis secondary to C.diff 7. ESRD on HD 8. DM 9. CAD s/p PCI 10. Diabetic retinopathy 11. Obesity 12. Hx of pancreatitis Plan: Continue Merrem day #14 out of 14 days. Continue Daptomycin q48hrs. Awaiting final BC results to rule out VRE. Can be positive to contamination. Will check cultures from midline since patient has had it for about 7-8 days. Will continue to monitor clinically. Prognosis is poor. Case seen, discussed and reviewed with Dr. Neli Rivas PGY3 <Pj Quinteros - Last Filed: 01/31/18 17:35> Objective - Vital Signs/Intake and Output Vital Signs (last 24 hours): Temp Pulse Resp BP Pulse Ox 98 F 87 17 126/60 100 01/31/18 16:00 01/31/18 17:10 01/31/18 17:10 01/31/18 17:00 01/31/18 08:15 Intake and Output: 01/31/18 01/31/18 06:59 18:59 Intake Total 100 550 Output Total 1200 2001 Balance -1100 -1452 - Medications Medications: Current Medications Acetaminophen (Tylenol 325mg Tab) 650 mg PO Q6H PRN PRN Reason: Pain, Mild (1-3) Albuterol/Ipratropium (Duoneb 3 Mg/0.5 Mg (3 Ml) Ud) 3 ml IH [id number] PRN PRN Reason: Shortness of Breath Last Admin: 01/27/18 13:07 Dose: 3 ml Arformoterol Tartrate (Brovana) 15 mcg IH [id number] [facility] Last Admin: 01/31/18 08:08 Dose: 15 mcg Aspirin (Ecotrin) 81 mg PO DAILY [facility] Last Admin: 01/31/18 09:27 Dose: 81 mg Atorvastatin Calcium (Lipitor) 80 mg PO HS [facility] Last Admin: 01/30/18 21:06 Dose: 80 mg Budesonide (Pulmicort Respules) 0.5 mg IH Q12H [facility] Last Admin: 01/31/18 08:08 Dose: 0.5 mg Duloxetine HCl (Cymbalta) 40 mg PO DAILY [facility] Last Admin: 01/31/18 09:30 Dose: 40 mg Famotidine (Pepcid) 20 mg PO HS [facility] Last Admin: 01/29/18 22:06 Dose: 20 mg Fenofibrate (Tricor) 145 mg PO DAILY [facility] Last Admin: 01/31/18 09:26 Dose: 145 mg Fluticasone Propionate (Flonase) 1 actuation NS DAILY PRN PRN Reason: Nasal congestion Guaifenesin (Mucinex La) 600 mg PO BID PRN PRN Reason: Cough Heparin Sodium (Porcine) (Heparin) 5,000 units SC Q12 [facility]; Protocol Last Admin: 01/26/18 15:40 Dose: Not Given Meropenem/Sodium Chloride (Merrem Iv 500 Mg/Ns 50 Ml) 500 mg in 50 mls @ 100 mls/hr IVPB Q12 [facility]; Protocol Stop: 02/05/18 10:01 Last Admin: 01/31/18 09:27 Dose: 100 mls/hr Daptomycin 700 mg/ Sodium (Chloride) 100 mls @ 200 mls/hr IV QOTHERDAY [facility] Stop: 02/06/18 10:01 Last Admin: 01/30/18 13:00 Dose: 200 mls/hr Insulin Detemir (Levemir) 10 unit SC HS [facility] Last Admin: 01/30/18 22:22 Dose: 10 unit Insulin Human Regular (Humulin R High) 0 units SC ACHS [facility]; Protocol Last Admin: 01/31/18 17:11 Dose: Not Given Insulin Human Regular (Humulin R) 5 units SC AC [facility] Last Admin: 01/31/18 17:11 Dose: Not Given Latanoprost (Xalatan Opht) 0 ml OU HS [facility] Last Admin: 01/30/18 21:06 Dose: 2.5 ml Levothyroxine Sodium (Synthroid) 50 mcg PO 0600 [facility] Last Admin: 01/31/18 05:57 Dose: 50 mcg Metoprolol Tartrate (Lopressor) 25 mg PO BID [facility] Last Admin: 01/31/18 17:11 Dose: Not Given Midodrine (Proamatine) 5 mg PO TID [facility] Last Admin: 01/31/18 17:10 Dose: 5 mg Ondansetron HCl (Zofran Inj) 4 mg IVP Q6H PRN PRN Reason: Nausea/Vomiting Last Admin: 01/31/18 09:27 Dose: 4 mg Oxycodone/Acetaminophen (Percocet 5/325 Mg Tab) 1 tab PO Q4H PRN PRN Reason: Pain, moderate (4-7) Stop: 02/02/18 11:08 Last Admin: 01/31/18 09:25 Dose: 1 tab Sodium Chloride (Grampian Nasal [place]) 0 ml NS Q2 PRN PRN Reason: nasal congestion. Ticagrelor (Brilinta) 90 mg PO BID [facility] Last Admin: 01/29/18 15:03 Dose: 90 mg Zaleplon (Sonata) 5 mg PO HS [facility] Last Admin: 01/30/18 21:06 Dose: 5 mg - Labs Labs: 01/31/18 06:20 01/31/18 13:50 PT 18.7 sec (9.0-11.5) H 01/25/18 09:00 INR 1.77 01/23/18 08:50 APTT 33.8 Seconds (25.1-36.5) 01/23/18 08:50 Assessment and Plan - Assessment and Plan (Free Text) Plan: Infectious Diseases Attending Physician Attestation Patient seen and examined, discussed with clinical medical assistant. I have reviewed the patient's history of present illness, past medical, family and social histories, personal history, physical exam, lab findings and imaging studies. I agree with the above findings, assessment and plan. In addition, complete the 14 days of Merrem for Serratia bacteremia from left foot stump infection. Now with VRE bacteremia, suspect right midline catheter infection, R/O ICD infection - will need to get 2D echo as well. we have started Daptomycin. Overall prognosis is poor.
[2018-01-31 06:58] LABS: ALB/GLOB RATIO 0.6 (1.1-1.8); BASO # 0.01 K/mm3 (0.0-2.0); BASO % 0.1 % (0.0-3.0); CALCIUM 7.8 mg/dL (8.4-10.5); EOS % 0.2 % (1.5-5.0); GRAN # 12.74 (1.4-6.5); HEMOGLOBIN 8.4 g/dL (14.0-18.0); LYMPH # 0.7 (1.2-3.4); LYMPH % 4.9 % (22.0-35.0); MEAN CELL VOLUME 96.7 fl (80.0-105.0); MEAN CORPUSCULAR HEMOGLOBIN 31.2 pg (25.0-35.0); MEAN CORPUSCULAR HGB CONC 32.3 g/dl (31.0-37.0); MEAN PLATELET VOLUME 11.5 fl (7.0-11.0); MONO # 1.3 (0.1-0.6); MONO % 8.8 % (1.0-6.0); PLATELET COUNT 115 10^3/uL (120.0-450.0); RBC 2.69 10^6/uL (3.5-6.1); RED CELL DISTRIBUTION WIDTH 19.2 % (11.5-14.5); WHITE BLOOD COUNT 14.8 10^3/uL (4.5-11.0)
[2018-01-31] MEDS ORDERED: Potassium Chloride 20 mEq ER Tab PO STA (07:29)
[2018-01-31] MEDS: Insulin Regular 1 UNITS/0.01 ML ML SC SCH ×3 (07:45→17:11)
[2018-01-31] MEDS: Arformoterol 15 mcg/2 ml Inh Sol IH SCH ×2 (08:08→20:30)
[2018-01-31] MEDS: Budesonide 0.5 mg/2 ml Inhal Susp UD IH SCH ×2 (08:08→20:30)
--- NOTE | 2018-01-31 08:18 | PN ---
DATE: 01/30/2018 PULMONARY PROGRESS NOTE REFERRING PHYSICIAN: Galol Potter MD. SUBJECTIVE: He is lying in the bed, sleepy. Family is at bedside. Night was unremarkable. Breathing is a little better. No chest pain. No nausea. No vomiting. No diarrhea. Has ischemic right hand fifth digit. Right BKA has a dressing. No more active bleed. OBJECTIVE: GENERAL: No acute distress. VITAL SIGNS: Temperature is 98, heart rate is 78, respiratory rate 16, blood pressure 99/45, pulse ox 93% on nasal cannula. HEENT: Moist mucous membrane. Crowded airway. Mallampati score is 4. NECK: Supple. No JVD. LUNGS: Have decreased breath sounds on the left base. Scattered rhonchi. HEART: S1 and S2. ABDOMEN: Soft, nontender. No organomegaly. EXTREMITIES: Trace edema on the left leg. Right BKA stump is covered with dressing. NEUROLOGICAL: Sleepy, arousable. MEDICATIONS: He is on Brilinta 90 mg twice a day, Brovana inhaled twice a day, Cymbalta 40 mg daily, daptomycin 700 mg daily, DuoNeb every 6 hours p.r.n., Ecotrin 81 mg daily, Flonase one spray to each nostril daily, heparin 5000 units subcu every 12 hours, insulin coverage, Levemir 10 units subcu at bedtime, on Levophed, Lipitor 80 mg daily, metoprolol tartrate 25 mg twice a day which is on hold, nasal saline 2 sprays each nostril every 2 hours p.r.n., Pepcid 20 mg at bedtime, Percocet 5/325 one tab every 4 hours p.r.n., Synthroid 50 mcg daily, Tricor 145 mg daily, Tylenol p.r.n. basis, Zofran p.r.n. basis. LABORATORY DATA: Shows hemoglobin 9, hematocrit 27.5, WBC 16.8, platelet is 121. Sodium 138, potassium 3.4, chloride 101, bicarbonate 31, BUN 30, creatinine 2.2, glucose 128, calcium 7.6, phosphorus 4.5, magnesium 2, AST 83, ALT 42, alk phos is 139, troponin is 0.45, albumin 2.1. Cortisol level 24.8. Blood culture from 01/28/2018 has a gram-positive cocci. Chest x-ray done this morning shows severe cardiomegaly, moderate size left pleural effusion extended into the left lung apex. IMPRESSION AND PLAN: Hemorrhagic shock requiring multiple unit transfusions, also required platelet; renal failure, dialysis dependent; bilateral pleural effusion, left more than the right; chronic obstructive lung disease; coronary artery disease; history of coronary stent; cardiac arrhythmia requiring pacemaker; sleep apnea syndrome, noncompliant with CPAP and BiPAP; peripheral vascular disease requiring right below-knee amputation; also has ischemic right fifth digit; also ischemic left hand third digit requiring amputation. Case discussed with nursing staff. Spoke to family at bedside. All the questions answered. Sleep apnea precaution. Keep head at 45 degrees. Antibiotics as per Infectious Diseases. Gastric prophylaxis. Follow up labs in the morning. Will have thoracentesis by Dr. Alfredo Wynn today. Critical care time more than 35 minutes. Thank you and we will follow with you. Jarred Escalera MD
[2018-01-31 08:52] LABS: BAND 1 % (0-2); LYMPHOCYTE 5 % (22.0-35.0); MONOCYTE 11 % (1.0-6.0); NEUTROPHIL 83 % (50.0-70.0)
[2018-01-31] MEDS: Oxycodone/Acetaminophen 5/325 mg Tab PO PRN ×2 (09:25→18:33)
[2018-01-31] MEDS: MEROPENEM 500 MG in NS 500 MG/50 ML BAG IVPB SCH ×2 (09:27→22:28)
[2018-01-31] MEDS: Insulin Reg-HIGH-Coverage SC SCH ×4 (09:31→22:20)
--- NOTE | 2018-01-31 10:23 | PN ---
DATE: 01/31/2018 REASON FOR THE CONSULTATION AND FOLLOWUP: Cardiac evaluation, history of coronary artery disease, status post rapid response in the ICU, bled from right BKA stump site after debridement of the wound, history of pleural effusion, status post thoracentesis. SUBJECTIVE: The patient feels better and getting ready for dialysis. Not in apparent distress. Deny chest pain, denies shortness of breath. OBJECTIVE: GENERAL: Not in apparent distress. VITAL SIGNS: Temperature afebrile, heart rate 84, blood pressure 130/80. HEENT: PERRLA. Extraocular muscles intact. NECK: Supple. No carotid bruit or thyromegaly. CHEST: Clear to auscultation. HEART: S1, S2 regular. ABDOMEN: Soft. EXTREMITIES: Clubbing and cyanosis negative. LABORATORY DATA: Blood workup as follows: WBC 14.8, hemoglobin 8.4, hematocrit 26, platelet count 115. Chemistry shows sodium 130, potassium 3.2, chloride 101, carbon dioxide 30, anion gap of 10, BUN 43, creatinine 3.2. IMPRESSION: A 52-year-old male with past medical history significant for coronary artery disease, status post multiple stent, history of end-stage renal disease, history of diabetic nephropathy, neuropathy, retinopathy and peripheral arterial disease, status post right below-knee amputation, status post recently revision and debridement of right below-knee amputation stump, postop course complicated by severe massive bleeding, hemorrhage from the stump site requiring 3 units of packed RBC, off Brilinta because of massive bleeding, history of sick sinus syndrome, bradycardia junctional, status post dual chamber pacemaker [facility]. CAT scan and chest x-ray shows large left pleural effusion, status post large volume thoracentesis of 1.2 liters of thoracentesis was done and feels better. RECOMMENDATIONS: We will repeat chest x-ray now. Continue baby aspirin, off Brilinta because of bleeding from the stump site and more than a year ago, continue heparin, continue beta valerie, continue atorvastatin, repeat chest x-ray. Discussed with the mother yesterday, we will call her mother and update the patient's condition. Thank you, Dr. Potter for providing us the opportunity in taking care of the patient, Jason Berger. Jarred Erickson MD [facility] # [id number]
--- NOTE | 2018-01-31 12:29 | CP.PCM.PN ---
<Jojo Crouch - Last Filed: 01/31/18 12:49> Subjective - Date & Time of Evaluation Date of Evaluation: 01/31/18 Time of Evaluation: 06:45 - Subjective Subjective: Jojo Crouch DO, PGY-2: Progress Note for Dr. Potter Patient was seen and examined in ICU room 128-3. He was sleepy today. He kept falling asleep during exam. Nurse reports no adverse events overnight. Patient will be getting dialysis today with removal of 2,000 ml of ultrafiltrate. Patient's blood culture show he is growing a very resistant VRE in blood. Tho racentesis removed 1,200 cc of clear straw colored fluid. Objective - Vital Signs/Intake and Output Vital Signs (last 24 hours): Temp Pulse Resp BP Pulse Ox 98.2 F 81 10 L 90/45 L 100 01/29/18 12:00 01/31/18 10:00 01/31/18 08:35 01/31/18 09:32 01/31/18 08:15 Intake and Output: 01/31/18 01/31/18 06:59 18:59 Intake Total 100 Output Total 1200 Balance -1100 - Medications Medications: Current Medications Acetaminophen (Tylenol 325mg Tab) 650 mg PO Q6H PRN PRN Reason: Pain, Mild (1-3) Albuterol/Ipratropium (Duoneb 3 Mg/0.5 Mg (3 Ml) Ud) 3 ml IH [id number] PRN PRN Reason: Shortness of Breath Last Admin: 01/27/18 13:07 Dose: 3 ml Arformoterol Tartrate (Brovana) 15 mcg IH [id number] [facility] Last Admin: 01/31/18 08:08 Dose: 15 mcg Aspirin (Ecotrin) 81 mg PO DAILY [facility] Last Admin: 01/31/18 09:27 Dose: 81 mg Atorvastatin Calcium (Lipitor) 80 mg PO HS [facility] Last Admin: 01/30/18 21:06 Dose: 80 mg Budesonide (Pulmicort Respules) 0.5 mg IH Q12H [facility] Last Admin: 01/31/18 08:08 Dose: 0.5 mg Collagenase (Santyl) 1 gm TOP DAILY [facility] Last Admin: 01/30/18 13:14 Dose: Not Given Duloxetine HCl (Cymbalta) 40 mg PO DAILY [facility] Last Admin: 01/31/18 09:30 Dose: 40 mg Famotidine (Pepcid) 20 mg PO HS [facility] Last Admin: 01/29/18 22:06 Dose: 20 mg Fenofibrate (Tricor) 145 mg PO DAILY [facility] Last Admin: 01/31/18 09:26 Dose: 145 mg Fluticasone Propionate (Flonase) 1 actuation NS DAILY PRN PRN Reason: Nasal congestion Guaifenesin (Mucinex La) 600 mg PO BID PRN PRN Reason: Cough Heparin Sodium (Porcine) (Heparin) 5,000 units SC Q12 [facility]; Protocol Last Admin: 01/26/18 15:40 Dose: Not Given NOREPINEPHRINE BIT/0.9 % NACL (Levophed 4 Mg/ 250 Ml Ns Premixed) 4 mg in 250 mls @ 15 mls/hr IV .[id number] PRN; Protocol PRN Reason: TITRATE PER MD ORDER Last Titration: 01/29/18 14:00 Dose: 0 mcg/min, 0 mls/hr Meropenem/Sodium Chloride (Merrem Iv 500 Mg/Ns 50 Ml) 500 mg in 50 mls @ 100 mls/hr IVPB Q12 [facility]; Protocol Stop: 02/05/18 10:01 Last Admin: 01/31/18 09:27 Dose: 100 mls/hr Daptomycin 700 mg/ Sodium (Chloride) 100 mls @ 200 mls/hr IV QOTHERDAY [facility] Stop: 02/06/18 10:01 Last Admin: 01/30/18 13:00 Dose: 200 mls/hr Potassium Chloride (Potassium Chloride 20 Meq/100 Ml) 20 meq in 100 mls @ 50 mls/hr IVPB Q2H [facility] Stop: 01/31/18 13:59 Insulin Detemir (Levemir) 10 unit SC HS [facility] Last Admin: 01/30/18 22:22 Dose: 10 unit Insulin Human Regular (Humulin R High) 0 units SC ACHS [facility]; Protocol Last Admin: 01/31/18 09:31 Dose: Not Given Insulin Human Regular (Humulin R) 5 units SC AC [facility] Last Admin: 01/31/18 07:45 Dose: Not Given Latanoprost (Xalatan Opht) 0 ml OU HS [facility] Last Admin: 01/30/18 21:06 Dose: 2.5 ml Levothyroxine Sodium (Synthroid) 50 mcg PO 0600 [facility] Last Admin: 01/31/18 05:57 Dose: 50 mcg Metoprolol Tartrate (Lopressor) 25 mg PO BID [facility] Last Admin: 01/31/18 09:32 Dose: Not Given Midodrine (Proamatine) 5 mg PO TID [facility] Last Admin: 01/31/18 09:26 Dose: 5 mg Ondansetron HCl (Zofran Inj) 4 mg IVP Q6H PRN PRN Reason: Nausea/Vomiting Last Admin: 01/31/18 09:27 Dose: 4 mg Oxycodone/Acetaminophen (Percocet 5/325 Mg Tab) 1 tab PO Q4H PRN PRN Reason: Pain, moderate (4-7) Stop: 02/02/18 11:08 Last Admin: 01/31/18 09:25 Dose: 1 tab Sodium Chloride ([place] Nasal [place]) 0 ml NS Q2 PRN PRN Reason: nasal congestion. Ticagrelor (Brilinta) 90 mg PO BID [facility] Last Admin: 01/29/18 15:03 Dose: 90 mg Zaleplon (Sonata) 5 mg PO [facility] Last Admin: 01/30/18 21:06 Dose: 5 mg - Labs Labs: 01/31/18 06:20 01/31/18 06:20 PT 18.7 sec (9.0-11.5) H 01/25/18 09:00 INR 1.77 01/23/18 08:50 APTT 33.8 Seconds (25.1-36.5) 01/23/18 08:50 - Constitutional Appears: No Acute Distress, Chronically Ill - Head Exam Head Exam: ATRAUMATIC Additional comments: bradley facies - Eye Exam Eye Exam: EOMI, Normal appearance - ENT Exam ENT Exam: Mucous Membranes Moist - Neck Exam Neck Exam: Normal Inspection - Respiratory Exam Respiratory Exam: Decreased Breath Sounds (bilaterallyy), NORMAL BREATHING PATTERN. absent: Accessory Muscle Use - Cardiovascular Exam Cardiovascular Exam: RRR, +S1, +S2 - GI/Abdominal Exam GI & Abdominal Exam: Soft, Normal Bowel Sounds - Extremities Exam Additional comments: right index finger is - Neurological Exam Neurological Exam: Awake, Oriented x3 - Psychiatric Exam Psychiatric exam: Normal Affect, Normal Mood - Skin Skin Exam: Normal Color (not including necrotic right pinky) Assessment and Plan - Assessment and Plan (Free Text) Assessment: 52 year old male with a past medical history notable for ESRD, CAD with OR 4 months ago, right BKA, and left third digit amputation who presents with melena and diarrhea. 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 Patient is s/p local debridement and wound vacuum placement of the right BKA. Right pinky finger has , we will let it fall off. Interventional radiologist was consulted who is performed a thoracentesis and removed 1,200 of and will someday in the future perform an angiogram to look at vasculature. Prognosis is extremely poor. 1) Sepsis secondary to VRE which is MDR - Wound care per surgery - New blood cultures growing MDR VRE - Antibiotics per ID 2) Hemmorhagic shock s/p transfusion of 3 units of PRBCS and 1 unit of leukocyte reduced platelets; resolved - Norepinephrine has been discontinued - ICU team started Midodrine for blood pressure, will continue 3) of right pinky secondary to dry gangrene - Dr. Wynn recommends angiogram of the right arm to be performed sometime in the future 4) ESRD - Continue with dialysis - 2,000 ml of ultrafiltrate to be removed today 3) CAD - Continue Brillinta 90 mg BID - Aspirin 81 mg - Metroprolol 25 mg BID - Atorvastatin 80 mg HS - Dr. Erickson consulted, appreciate recommendations 4) DM II - Humulin 5 mg AC with fingerstick BG ACHS - Levemir 10 mg HS - Blood sugars goals are between 150-200 5) Upper respiratory symptoms - Mucinex LA 650 PRN - Flonase PRN - Duonebs q6h PRN for dyspnea 6) Hypothyroidism - Levothyroxine 50 mcg PO daily 7) Hyperlipidemia - Fenofibrate 145 mg PO daily 8) Glaucoma - Latanoprost drops OU 10) RENATA - Continue with noninvasive positive airway pressure as per pulmonology's recommendations 11) Depressed mood in a patient with multiple, life-threatening comorbidities - Dr. Malin consulted, patient may benefit from cognitive behavioral therapy and medications, appreciate recommendations - Agree with Sonata and Duloxetine 12) Physical therapy in the setting of recent BKA - Physical therapy evaluation submitted 13) DVT/GI prophylaxis - Heparin 5,000 q12h - Pepcid 20 mg HS Disposition: Extremely guarded, hospice is not out of the question. Case was reviewed and discussed with attending physician, Dr. Potter <Gallo Potter S - Last Filed: 01/31/18 19:16> Objective - Vital Signs/Intake and Output Vital Signs (last 24 hours): Temp Pulse Resp BP Pulse Ox 98 F 87 17 126/60 100 01/31/18 16:00 01/31/18 17:10 01/31/18 17:10 01/31/18 17:00 01/31/18 08:15 Intake and Output: 01/31/18 02/01/18 18:59 06:59 Intake Total 550 Output Total 2001 Balance -1452 - Medications Medications: Current Medications Acetaminophen (Tylenol 325mg Tab) 650 mg PO Q6H PRN PRN Reason: Pain, Mild (1-3) Albuterol/Ipratropium (Duoneb 3 Mg/0.5 Mg (3 Ml) Ud) 3 ml IH [id number] PRN PRN Reason: Shortness of Breath Last Admin: 01/27/18 13:07 Dose: 3 ml Arformoterol Tartrate (Brovana) 15 mcg IH [id number] [facility] Last Admin: 01/31/18 08:08 Dose: 15 mcg Aspirin (Ecotrin) 81 mg PO DAILY [facility] Last Admin: 01/31/18 09:27 Dose: 81 mg Atorvastatin Calcium (Lipitor) 80 mg PO HS [facility] Last Admin: 01/30/18 21:06 Dose: 80 mg Budesonide (Pulmicort Respules) 0.5 mg IH Q12H [facility] Last Admin: 01/31/18 08:08 Dose: 0.5 mg Duloxetine HCl (Cymbalta) 40 mg PO DAILY [facility] Last Admin: 01/31/18 09:30 Dose: 40 mg Famotidine (Pepcid) 20 mg PO HS [facility] Last Admin: 01/29/18 22:06 Dose: 20 mg Fenofibrate (Tricor) 145 mg PO DAILY [facility] Last Admin: 01/31/18 09:26 Dose: 145 mg Fluticasone Propionate (Flonase) 1 actuation NS DAILY PRN PRN Reason: Nasal congestion Guaifenesin (Mucinex La) 600 mg PO BID PRN PRN Reason: Cough Heparin Sodium (Porcine) (Heparin) 5,000 units SC Q12 [facility]; Protocol Last Admin: 01/26/18 15:40 Dose: Not Given Meropenem/Sodium Chloride (Merrem Iv 500 Mg/Ns 50 Ml) 500 mg in 50 mls @ 100 mls/hr IVPB Q12 [facility]; Protocol Stop: 02/05/18 10:01 Last Admin: 01/31/18 09:27 Dose: 100 mls/hr Daptomycin 700 mg/ Sodium (Chloride) 100 mls @ 200 mls/hr IV QOTHERDAY [facility] Stop: 02/06/18 10:01 Last Admin: 01/30/18 13:00 Dose: 200 mls/hr Insulin Detemir (Levemir) 10 unit SC HS [facility] Last Admin: 01/30/18 22:22 Dose: 10 unit Insulin Human Regular (Humulin R High) 0 units SC ACHS [facility]; Protocol Last Admin: 01/31/18 17:11 Dose: Not Given Insulin Human Regular (Humulin R) 5 units SC AC [facility] Last Admin: 01/31/18 17:11 Dose: Not Given Latanoprost (Xalatan Opht) 0 ml OU [facility] Last Admin: 01/30/18 21:06 Dose: 2.5 ml Levothyroxine Sodium (Synthroid) 50 mcg PO 0600 [facility] Last Admin: 01/31/18 05:57 Dose: 50 mcg Metoprolol Tartrate (Lopressor) 25 mg PO BID [facility] Last Admin: 01/31/18 17:11 Dose: Not Given Midodrine (Proamatine) 5 mg PO TID [facility] Last Admin: 01/31/18 17:10 Dose: 5 mg Ondansetron HCl (Zofran Inj) 4 mg IVP Q6H PRN PRN Reason: Nausea/Vomiting Last Admin: 01/31/18 09:27 Dose: 4 mg Oxycodone/Acetaminophen (Percocet 5/325 Mg Tab) 1 tab PO Q4H PRN PRN Reason: Pain, moderate (4-7) Stop: 02/02/18 11:08 Last Admin: 01/31/18 18:33 Dose: 1 tab Sodium Chloride ([place] Nasal [place]) 0 ml NS Q2 PRN PRN Reason: nasal congestion. Ticagrelor (Brilinta) 90 mg PO BID [facility] Last Admin: 01/29/18 15:03 Dose: 90 mg Zaleplon (Sonata) 5 mg PO [facility] Last Admin: 01/30/18 21:06 Dose: 5 mg - Labs Labs: 01/31/18 06:20 01/31/18 13:50 PT 18.7 sec (9.0-11.5) H 01/25/18 09:00 INR 1.77 01/23/18 08:50 APTT 33.8 Seconds (25.1-36.5) 01/23/18 08:50 Assessment and Plan - Assessment and Plan (Free Text) Assessment: Pt seen and examined. I have reviewed the note of the medical records tech and agree with it. I have discussed the assessment and plan with the resident. I have reviewed the patient's labs and medications. Pt with sepsis. He is being followed by ID. R leg BKA wound is improving. I spoke to Dr Urrutia about the case. He is going to continue with HD today. I tried to call the pt's mother twice today but was not able talk to her nor leave a message. He will need angiogram for the upper extremity PAD. His breathing is better after the thoracentesis. DM-2 is controlled. BP is stable. 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
--- NOTE | 2018-01-31 13:12 | RAD ---
Date of service: 01/31/2018 HISTORY: R/O pneumonia Vs CHF COMPARISON: 01/30/2018 FINDINGS: LUNGS: There improvement in the left upper lobe infiltrate PLEURA: No significant pleural effusion identified, no pneumothorax apparent. CARDIOVASCULAR: No aortic atherosclerotic calcification present. Moderate cardiomegaly moderate vascular congestion OSSEOUS STRUCTURES: No significant abnormalities. VISUALIZED UPPER ABDOMEN: Normal. OTHER FINDINGS: None. IMPRESSION: Moderate vascular congestion. Improved left upper lobe infiltrate
--- NOTE | 2018-01-31 13:16 | CP.PCM.PN ---
Subjective - Date & Time of Evaluation Date of Evaluation: 01/31/18 Time of Evaluation: 13:00 - Subjective Subjective: Feels weak. Objective - Vital Signs/Intake and Output Vital Signs (last 24 hours): Temp Pulse Resp BP Pulse Ox 98.2 F 83 23 99/56 L 100 01/29/18 12:00 01/31/18 12:31 01/31/18 12:31 01/31/18 12:30 01/31/18 08:15 Intake and Output: 01/31/18 01/31/18 06:59 18:59 Intake Total 100 Output Total 1200 Balance -1100 - Medications Medications: Current Medications Acetaminophen (Tylenol 325mg Tab) 650 mg PO Q6H PRN PRN Reason: Pain, Mild (1-3) Albuterol/Ipratropium (Duoneb 3 Mg/0.5 Mg (3 Ml) Ud) 3 ml IH [id number] PRN PRN Reason: Shortness of Breath Last Admin: 01/27/18 13:07 Dose: 3 ml Arformoterol Tartrate (Brovana) 15 mcg IH [id number] [facility] Last Admin: 01/31/18 08:08 Dose: 15 mcg Aspirin (Ecotrin) 81 mg PO DAILY [facility] Last Admin: 01/31/18 09:27 Dose: 81 mg Atorvastatin Calcium (Lipitor) 80 mg PO HS [facility] Last Admin: 01/30/18 21:06 Dose: 80 mg Budesonide (Pulmicort Respules) 0.5 mg IH Q12H [facility] Last Admin: 01/31/18 08:08 Dose: 0.5 mg Duloxetine HCl (Cymbalta) 40 mg PO DAILY [facility] Last Admin: 01/31/18 09:30 Dose: 40 mg Famotidine (Pepcid) 20 mg PO HS [facility] Last Admin: 01/29/18 22:06 Dose: 20 mg Fenofibrate (Tricor) 145 mg PO DAILY [facility] Last Admin: 01/31/18 09:26 Dose: 145 mg Fluticasone Propionate (Flonase) 1 actuation NS DAILY PRN PRN Reason: Nasal congestion Guaifenesin (Mucinex La) 600 mg PO BID PRN PRN Reason: Cough Heparin Sodium (Porcine) (Heparin) 5,000 units SC Q12 [facility]; Protocol Last Admin: 01/26/18 15:40 Dose: Not Given NOREPINEPHRINE BIT/0.9 % NACL (Levophed 4 Mg/ 250 Ml Ns Premixed) 4 mg in 250 mls @ 15 mls/hr IV .[id number] PRN; Protocol PRN Reason: TITRATE PER MD ORDER Last Titration: 01/29/18 14:00 Dose: 0 mcg/min, 0 mls/hr Meropenem/Sodium Chloride (Merrem Iv 500 Mg/Ns 50 Ml) 500 mg in 50 mls @ 100 mls/hr IVPB Q12 [facility]; Protocol Stop: 02/05/18 10:01 Last Admin: 01/31/18 09:27 Dose: 100 mls/hr Daptomycin 700 mg/ Sodium (Chloride) 100 mls @ 200 mls/hr IV QOTHERDAY [facility] Stop: 02/06/18 10:01 Last Admin: 01/30/18 13:00 Dose: 200 mls/hr Potassium Chloride (Potassium Chloride 20 Meq/100 Ml) 20 meq in 100 mls @ 50 mls/hr IVPB Q2H [facility] Stop: 01/31/18 13:59 Insulin Detemir (Levemir) 10 unit SC HS [facility] Last Admin: 01/30/18 22:22 Dose: 10 unit Insulin Human Regular (Humulin R High) 0 units SC ACHS [facility]; Protocol Last Admin: 01/31/18 12:35 Dose: Not Given Insulin Human Regular (Humulin R) 5 units SC AC [facility] Last Admin: 01/31/18 12:35 Dose: Not Given Latanoprost (Xalatan Opht) 0 ml OU HS [facility] Last Admin: 01/30/18 21:06 Dose: 2.5 ml Levothyroxine Sodium (Synthroid) 50 mcg PO 0600 [facility] Last Admin: 01/31/18 05:57 Dose: 50 mcg Metoprolol Tartrate (Lopressor) 25 mg PO BID [facility] Last Admin: 01/31/18 09:32 Dose: Not Given Midodrine (Proamatine) 5 mg PO TID [facility] Last Admin: 01/31/18 09:26 Dose: 5 mg Ondansetron HCl (Zofran Inj) 4 mg IVP Q6H PRN PRN Reason: Nausea/Vomiting Last Admin: 01/31/18 09:27 Dose: 4 mg Oxycodone/Acetaminophen (Percocet 5/325 Mg Tab) 1 tab PO Q4H PRN PRN Reason: Pain, moderate (4-7) Stop: 02/02/18 11:08 Last Admin: 01/31/18 09:25 Dose: 1 tab Sodium Chloride ([place] Nasal [place]) 0 ml NS Q2 PRN PRN Reason: nasal congestion. Ticagrelor (Brilinta) 90 mg PO BID [facility] Last Admin: 01/29/18 15:03 Dose: 90 mg Zaleplon (Sonata) 5 mg PO HS [facility] Last Admin: 01/30/18 21:06 Dose: 5 mg - Labs Labs: 01/31/18 06:20 01/31/18 06:20 PT 18.7 sec (9.0-11.5) H 01/25/18 09:00 INR 1.77 01/23/18 08:50 APTT 33.8 Seconds (25.1-36.5) 01/23/18 08:50 - Head Exam Head Exam: ATRAUMATIC - Eye Exam Eye Exam: Normal appearance - ENT Exam ENT Exam: Mucous Membranes Dry - Respiratory Exam Respiratory Exam: NORMAL BREATHING PATTERN - Cardiovascular Exam Cardiovascular Exam: +S1, +S2 - GI/Abdominal Exam GI & Abdominal Exam: Normal Bowel Sounds Assessment and Plan (1) Hypercoagulable state Assessment & Plan: noted slightly diminished protein S activity; may be low due recent bleeding/clotting on dual antiplatelet therapy Status: Acute (2) Thrombocytopenia Assessment & Plan: mild improved from prior HIV and hepatitis B/C negative antiphospholipid Ab panel negative Status: Acute (3) Anemia Assessment & Plan: anemia of CKD anemia of chronic disease right LE stump bleeding transfusion support PRN Status: Acute (4) Leukocytosis Assessment & Plan: on antibiotics Status: Acute (5) Coagulopathy Assessment & Plan: repeat mixing study pending prior study corrected suggesting factor deficiency/nutritional coagulopathy Status: Acute
[2018-01-31] MEDS: Latanoprost 2.5 ml Opht Soln OU SCH (22:00)
[2018-01-31] MEDS: Insulin Detemir 100 units/ml Vial (Levemir) SC SCH (22:28)
[2018-02-01] MEDS: Levothyroxine 25 MCG TAB PO SCH (06:29)
[2018-02-01] MEDS: Oxycodone/Acetaminophen 5/325 mg Tab PO PRN ×3 (06:29→22:39)
[2018-02-01] MEDS: Arformoterol 15 mcg/2 ml Inh Sol IH SCH ×2 (07:38→20:10)
[2018-02-01] MEDS: Budesonide 0.5 mg/2 ml Inhal Susp UD IH SCH ×2 (07:39→20:10)
[2018-02-01] MEDS: Insulin Reg-HIGH-Coverage SC SCH ×4 (08:31→22:00)
[2018-02-01] MEDS: Insulin Regular 1 UNITS/0.01 ML ML SC SCH ×3 (08:32→15:50)
--- NOTE | 2018-02-01 08:37 | PN ---
DATE: 01/31/2018 PULMONARY CRITICAL CARE PROGRESS NOTE REFERRING PHYSICIAN: Gallo Potter MD SUBJECTIVE: Sleepy, arousable. Night was unremarkable. Does not use CPAP/BiPAP on nasal cannula oxygen, not much cough. No sputum production, status post thoracentesis with removal of 1200 mL of fluid. No nausea. No vomiting. Does have upper extremity discomfort. OBJECTIVE: GENERAL: In no acute distress. VITAL SIGNS: Temperature is 98, heart rate is 83, respiratory rate is 20, blood pressure 99/56, pulse ox 100% on nasal cannula. HEENT: Moist mucous membrane. Crowded airway. Mallampati score is 4. NECK: Supple. No JVD. LUNGS: Have scattered rhonchi. HEART: S1 and S2. ABDOMEN: Soft, nontender. No organomegaly. EXTREMITIES: Has a right BKA with dressing. Left trace edema. Sign of ischemia of the both upper extremity in the finger. NEUROLOGICAL: Sleepy, arousable. Follows simple command. MEDICATIONS: He is on Brilinta 90 mg twice a day, Brovana inhaled twice a day, Cymbalta 40 mg daily, daptomycin 700 mg and Monday, also on DuoNeb every 6 hours p.r.n., Ecotrin 81 mg daily, Flonase once to each nostril daily, heparin 5000 units subcu every 12 hours, insulin coverage, Levemir 10 units subcu at bedtime, on Levophed, Lipitor 80 mg daily, metoprolol tartrate 25 mg twice a day which is on hold, meropenem 1 g IV every 12 hours, Mucinex LA 600 mg twice a day p.r.n., nasal saline every 2 hours p.r.n., Pepcid 20 mg at bedtime, Percocet 5/325 one tablet every 4 hours p.r.n., midodrine 5 mg three times a day, Pulmicort inhaled twice a day, Sonata 5 mg at bedtime, Synthroid 50 mcg p.o. daily, TriCor 145 mg daily, Tylenol p.r.n., Zofran p.r.n. basis. LABORATORY DATA: Shows hemoglobin 8.4, hematocrit 26, WBC 14.8, platelet count is 115. Sodium 138, potassium 2.3, chloride 101, bicarbonate 31, BUN 43, creatinine 3.2, glucose 149, calcium 7.8, phosphorus 5.3, magnesium 2, AST 63, ALT 34, alkaline phosphatase is 118. Albumin is 2.8. Repeat blood culture done yesterday, so far there is no growth, but blood culture done on 01/28/2018 has VRE Enterococcus faecium. Chest x-ray done this morning shows moderate vascular congestion, improved left lung infiltrate and effusion. IMPRESSION AND PLAN: Hemorrhagic shock requiring multiple unit transfusion and platelet transfusion, renal failure on dialysis, pleural effusion status post thoracentesis, chronic obstructive lung disease, sleep apnea syndrome, noncompliant with CPAP and BiPAP, coronary artery disease, history of coronary stent, cardiac arrhythmia requiring pacemaker, severe peripheral vascular disease, has a right leg below-knee amputation and also amputation of the left fifth digit. Presently has gangrene on the right hand fifth digit being treated with healthcare-associated sepsis. Pulmonary point of view, doing okay. Keep head at 45 degrees. Bronchodilator, gastric prophylaxis. Continue to encourage CPAP/BiPAP. Follow up labs in the morning. Thank you and we will follow with you. Jarred Escalera MD
--- NOTE | 2018-02-01 09:41 | CP.PCM.PN ---
<Jojo Crouch - Last Filed: 02/01/18 09:56> Subjective - Date & Time of Evaluation Date of Evaluation: 02/01/18 Time of Evaluation: 09:00 - Subjective Subjective: Jojo Crouch DO, PGY-2: Progress Note for Dr. Potter Patient was seen and examined at bedside. Patient denies any fever, chills, nausea, or vomiting. He is alert and oriented today. Patient's blood sugar fell this morning. Objective - Vital Signs/Intake and Output Vital Signs (last 24 hours): Temp Pulse Resp BP Pulse Ox 97.6 F 90 18 102/64 96 02/01/18 05:55 02/01/18 05:55 02/01/18 05:55 02/01/18 05:55 02/01/18 05:55 Intake and Output: 02/01/18 02/01/18 06:59 18:59 Intake Total 240 Output Total 0 Balance 240 - Medications Medications: Current Medications Acetaminophen (Tylenol 325mg Tab) 650 mg PO Q6H PRN PRN Reason: Pain, Mild (1-3) Albuterol/Ipratropium (Duoneb 3 Mg/0.5 Mg (3 Ml) Ud) 3 ml IH [id number] PRN PRN Reason: Shortness of Breath Last Admin: 01/27/18 13:07 Dose: 3 ml Arformoterol Tartrate (Brovana) 15 mcg IH [id number] [facility] Last Admin: 02/01/18 07:38 Dose: 15 mcg Aspirin (Ecotrin) 81 mg PO DAILY [facility] Last Admin: 01/31/18 09:27 Dose: 81 mg Atorvastatin Calcium (Lipitor) 80 mg PO HS [facility] Last Admin: 01/31/18 22:28 Dose: 80 mg Budesonide (Pulmicort Respules) 0.5 mg IH Q12H [facility] Last Admin: 02/01/18 07:39 Dose: 0.5 mg Duloxetine HCl (Cymbalta) 40 mg PO DAILY [facility] Last Admin: 01/31/18 09:30 Dose: 40 mg Famotidine (Pepcid) 20 mg PO HS [facility] Last Admin: 01/31/18 22:28 Dose: 20 mg Fenofibrate (Tricor) 145 mg PO DAILY [facility] Last Admin: 01/31/18 09:26 Dose: 145 mg Fluticasone Propionate (Flonase) 1 actuation NS DAILY PRN PRN Reason: Nasal congestion Guaifenesin (Mucinex La) 600 mg PO BID PRN PRN Reason: Cough Heparin Sodium (Porcine) (Heparin) 5,000 units SC Q12 [facility]; Protocol Last Admin: 01/26/18 15:40 Dose: Not Given Meropenem/Sodium Chloride (Merrem Iv 500 Mg/Ns 50 Ml) 500 mg in 50 mls @ 100 mls/hr IVPB Q12 [facility]; Protocol Stop: 02/05/18 10:01 Last Admin: 01/31/18 22:28 Dose: 100 mls/hr Daptomycin 700 mg/ Sodium (Chloride) 100 mls @ 200 mls/hr IV QOTHERDAY [facility] Stop: 02/06/18 10:01 Last Admin: 01/30/18 13:00 Dose: 200 mls/hr Insulin Human Regular (Humulin R High) 0 units SC ACHS [facility]; Protocol Last Admin: 02/01/18 08:31 Dose: Not Given Insulin Human Regular (Humulin R) 5 units SC AC [facility] Last Admin: 02/01/18 08:32 Dose: Not Given Latanoprost (Xalatan Opht) 0 ml OU HS [facility] Last Admin: 01/31/18 22:00 Dose: Not Given Levothyroxine Sodium (Synthroid) 50 mcg PO 0600 [facility] Last Admin: 02/01/18 06:29 Dose: 50 mcg Metoprolol Tartrate (Lopressor) 25 mg PO BID [facility] Last Admin: 01/31/18 17:11 Dose: Not Given Midodrine (Proamatine) 5 mg PO TID [facility] Last Admin: 01/31/18 17:10 Dose: 5 mg Ondansetron HCl (Zofran Inj) 4 mg IVP Q6H PRN PRN Reason: Nausea/Vomiting Last Admin: 01/31/18 09:27 Dose: 4 mg Oxycodone/Acetaminophen (Percocet 5/325 Mg Tab) 1 tab PO Q4H PRN PRN Reason: Pain, moderate (4-7) Stop: 02/02/18 11:08 Last Admin: 02/01/18 06:29 Dose: 1 tab Sodium Chloride (Hinds Nasal [place]) 0 ml NS Q2 PRN PRN Reason: nasal congestion. Ticagrelor (Brilinta) 90 mg PO BID [facility] Last Admin: 01/29/18 15:03 Dose: 90 mg Zaleplon (Sonata) 5 mg PO HS [facility] Last Admin: 01/31/18 22:28 Dose: 5 mg - Labs Labs: 01/31/18 06:20 01/31/18 20:36 PT 18.7 sec (9.0-11.5) H 01/25/18 09:00 INR 1.77 01/23/18 08:50 APTT 33.8 Seconds (25.1-36.5) 01/23/18 08:50 - Constitutional Appears: Well, Non-toxic - Head Exam Head Exam: ATRAUMATIC, NORMOCEPHALIC - Eye Exam Eye Exam: EOMI, Normal appearance - ENT Exam ENT Exam: Mucous Membranes Moist, Normal Oropharynx - Neck Exam Neck Exam: Normal Inspection - Respiratory Exam Respiratory Exam: Decreased Breath Sounds (in bilateral lung bases), NORMAL BREATHING PATTERN - Cardiovascular Exam Cardiovascular Exam: RRR, +S1, +S2 - GI/Abdominal Exam GI & Abdominal Exam: Soft, Normal Bowel Sounds - Extremities Exam Extremities Exam: absent: Calf Tenderness Additional comments: right BKA noted patient right index finger is - Neurological Exam Neurological Exam: Alert, Awake, Oriented x3 - Psychiatric Exam Psychiatric exam: Normal Affect, Normal Mood - Skin Skin Exam: Dry, Intact, Normal Color, Warm Assessment and Plan - Assessment and Plan (Free Text) Assessment: 52 year old male with a past medical history notable for ESRD, CAD with OK 4 months ago, right BKA, and left third digit amputation who presents with melena and diarrhea. 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 Patient is s/p local debridement and wound vacuum placement of the right BKA. Right pinky finger has , we will let it fall off. Interventional ra diologist was consulted and performed a thoracentesis and removed 1,200. Also, and will patient to get an angiogram to evaluate vasculature of right upper extremity. Left a message with his service and the [facility] nurse, Maduhri. 1) Sepsis secondary to VRE which is MDR - Wound care per surgery - New blood cultures growing MDR VRE - Antibiotics per ID 2) Hemmorhagic shock s/p transfusion of 3 units of PRBCS and 1 unit of leukocyte reduced platelets; resolved - Norepinephrine has been discontinued - ICU team started Midodrine for blood pressure, will continue 3) of right pinky secondary to dry gangrene - Dr. Wynn recommends angiogram of the right arm to be performed sometime in the future 4) ESRD - Continue with dialysis 5) CAD - Continue Brillinta 90 mg BID - Aspirin 81 mg - Metroprolol 25 mg BID - Atorvastatin 80 mg HS - Dr. Erickson consulted, appreciate recommendations 6) DM II - Humulin 5 mg AC with fingerstick BG ACHS - Blood sugars goals are between 150-200 7) Upper respiratory symptoms - Mucinex LA 650 PRN - Flonase PRN - Duonebs q6h PRN for dyspnea 8) Hypothyroidism - Levothyroxine 50 mcg PO daily 9) Hyperlipidemia - Fenofibrate 145 mg PO daily 10) Glaucoma - Latanoprost drops OU 11) RENATA - Continue with noninvasive positive airway pressure, unless otherwise indicated by pulmonology 12) Depressed mood in a patient with multiple, life-threatening comorbidities - Dr. Malin consulted, patient may benefit from cognitive behavioral therapy and medications, appreciate recommendations - Agree with Sonata and Duloxetine 13) Physical therapy in the setting of recent BKA - Physical therapy evaluation submitted 14) DVT/GI prophylaxis - Heparin 5,000 q12h (currently being held) - Pepcid 20 mg HS Case was reviewed and discussed with attending physician, Dr. Potter <Gallo Potter S - Last Filed: 02/01/18 14:23> Objective - Vital Signs/Intake and Output Vital Signs (last 24 hours): Temp Pulse Resp BP Pulse Ox 98.1 F 91 H 18 97/46 L 96 02/01/18 12:00 02/01/18 12:00 02/01/18 12:00 02/01/18 12:00 02/01/18 05:55 Intake and Output: 02/01/18 02/01/18 06:59 18:59 Intake Total 240 Output Total 0 Balance 240 - Medications Medications: Current Medications Acetaminophen (Tylenol 325mg Tab) 650 mg PO Q6H PRN PRN Reason: Pain, Mild (1-3) Albuterol/Ipratropium (Duoneb 3 Mg/0.5 Mg (3 Ml) Ud) 3 ml IH [id number] PRN PRN Reason: Shortness of Breath Last Admin: 01/27/18 13:07 Dose: 3 ml Arformoterol Tartrate (Brovana) 15 mcg IH [id number] [facility] Last Admin: 02/01/18 07:38 Dose: 15 mcg Aspirin (Ecotrin) 81 mg PO DAILY [facility] Last Admin: 02/01/18 12:31 Dose: 81 mg Atorvastatin Calcium (Lipitor) 80 mg PO HS [facility] Last Admin: 01/31/18 22:28 Dose: 80 mg Budesonide (Pulmicort Respules) 0.5 mg IH Q12H [facility] Last Admin: 02/01/18 07:39 Dose: 0.5 mg Duloxetine HCl (Cymbalta) 40 mg PO DAILY [facility] Last Admin: 02/01/18 12:31 Dose: 40 mg Famotidine (Pepcid) 20 mg PO HS [facility] Last Admin: 01/31/18 22:28 Dose: 20 mg Fenofibrate (Tricor) 145 mg PO DAILY [facility] Last Admin: 02/01/18 12:31 Dose: 145 mg Fluticasone Propionate (Flonase) 1 actuation NS DAILY PRN PRN Reason: Nasal congestion Guaifenesin (Mucinex La) 600 mg PO BID PRN PRN Reason: Cough Heparin Sodium (Porcine) (Heparin) 5,000 units SC Q12 [facility]; Protocol Last Admin: 01/26/18 15:40 Dose: Not Given Meropenem/Sodium Chloride (Merrem Iv 500 Mg/Ns 50 Ml) 500 mg in 50 mls @ 100 mls/hr IVPB Q12 [facility]; Protocol Stop: 02/05/18 10:01 Last Admin: 02/01/18 12:34 Dose: 100 mls/hr Daptomycin 700 mg/ Sodium (Chloride) 100 mls @ 200 mls/hr IV QOTHERDAY [facility] Stop: 02/06/18 10:01 Last Admin: 02/01/18 12:32 Dose: 200 mls/hr Dextrose (Dextrose 10% In Water) 500 mls @ 10 mls/hr IV .Q24H [facility] Last Admin: 02/01/18 12:18 Dose: 10 mls/hr Insulin Human Regular (Humulin R High) 0 units SC ACHS [facility]; Protocol Last Admin: 02/01/18 12:33 Dose: Not Given Insulin Human Regular (Humulin R) 5 units SC AC [facility] Last Admin: 02/01/18 12:33 Dose: Not Given Latanoprost (Xalatan Opht) 0 ml OU HS [facility] Last Admin: 01/31/18 22:00 Dose: Not Given Levothyroxine Sodium (Synthroid) 50 mcg PO 0600 [facility] Last Admin: 02/01/18 06:29 Dose: 50 mcg Metoprolol Tartrate (Lopressor) 25 mg PO BID [facility] Last Admin: 02/01/18 12:33 Dose: Not Given Midodrine (Proamatine) 5 mg PO TID [facility] Last Admin: 02/01/18 12:31 Dose: 5 mg Ondansetron HCl (Zofran Inj) 4 mg IVP Q6H PRN PRN Reason: Nausea/Vomiting Last Admin: 01/31/18 09:27 Dose: 4 mg Oxycodone/Acetaminophen (Percocet 5/325 Mg Tab) 1 tab PO Q4H PRN PRN Reason: Pain, moderate (4-7) Stop: 02/02/18 11:08 Last Admin: 02/01/18 06:29 Dose: 1 tab Sodium Chloride (Hinds Nasal [place]) 0 ml NS Q2 PRN PRN Reason: nasal congestion. Zaleplon (Sonata) 5 mg PO HS [facility] Last Admin: 01/31/18 22:28 Dose: 5 mg - Labs Labs: 01/31/18 06:20 01/31/18 20:36 PT 18.7 sec (9.0-11.5) H 01/25/18 09:00 INR 1.77 01/23/18 08:50 APTT 33.8 Seconds (25.1-36.5) 01/23/18 08:50 Assessment and Plan - Assessment and Plan (Free Text) Assessment: Pt seen and examined. I have reviewed the note of the medical biller/coder and agree with it. I have discussed the assessment and plan with the resident. I have reviewed the patient's labs and medications. Pt with sepsis and is improving. He had a R thoracentesis. He does feel better. Pt on Leveothyroxine for hypothyroidism. 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 Pt with healing R BKA. Waiting for angiogram by Dr Alfredo Wynn. DM-2 controlled with insulin. The Glc was low this morning and I will D/C the Levemir in the evening. Pt with ASA and Metoprolol for CAD. I tried to call the pt's mother today and yesterday but was not able to speak with her. HD in the am.
[2018-02-01] MEDS ORDERED: DAPTOmycin 500 mg Inj (Cubicin) IV SCH (10:00)
--- NOTE | 2018-02-01 10:19 | CP.PCM.PN ---
Subjective - Date & Time of Evaluation Date of Evaluation: 02/01/18 Time of Evaluation: 06:50 - Subjective Subjective: Awake, Lying in bed, no distress,alert, awake, denies shortness of breath Reason for consultation and follow up: Cardiac evaluation of chest pain,follow up of coronary artery disease, History of PPM, admitted for diarrhea, infected right BKA stump with debridement and wound VAC, status post WASTEWATER ANALYST LAB ANALYST for hypotension and bleeding from stump, post thoracenthesis for pleural effusion Seen and examined by me and Dr. Erickson Objective - Vital Signs/Intake and Output Vital Signs (last 24 hours): Temp Pulse Resp BP Pulse Ox 97.6 F 90 18 102/64 96 02/01/18 05:55 02/01/18 05:55 02/01/18 05:55 02/01/18 05:55 02/01/18 05:55 Intake and Output: 02/01/18 02/01/18 06:59 18:59 Intake Total 240 Output Total 0 Balance 240 - Medications Medications: Current Medications Acetaminophen (Tylenol 325mg Tab) 650 mg PO Q6H PRN PRN Reason: Pain, Mild (1-3) Albuterol/Ipratropium (Duoneb 3 Mg/0.5 Mg (3 Ml) Ud) 3 ml IH [id number] PRN PRN Reason: Shortness of Breath Last Admin: 01/27/18 13:07 Dose: 3 ml Arformoterol Tartrate (Brovana) 15 mcg IH [id number] [facility] Last Admin: 02/01/18 07:38 Dose: 15 mcg Aspirin (Ecotrin) 81 mg PO DAILY [facility] Last Admin: 01/31/18 09:27 Dose: 81 mg Atorvastatin Calcium (Lipitor) 80 mg PO [facility] Last Admin: 01/31/18 22:28 Dose: 80 mg Budesonide (Pulmicort Respules) 0.5 mg IH Q12H [facility] Last Admin: 02/01/18 07:39 Dose: 0.5 mg Duloxetine HCl (Cymbalta) 40 mg PO DAILY [facility] Last Admin: 01/31/18 09:30 Dose: 40 mg Famotidine (Pepcid) 20 mg PO [facility] Last Admin: 01/31/18 22:28 Dose: 20 mg Fenofibrate (Tricor) 145 mg PO DAILY [facility] Last Admin: 01/31/18 09:26 Dose: 145 mg Fluticasone Propionate (Flonase) 1 actuation NS DAILY PRN PRN Reason: Nasal congestion Guaifenesin (Mucinex La) 600 mg PO BID PRN PRN Reason: Cough Heparin Sodium (Porcine) (Heparin) 5,000 units SC Q12 [facility]; Protocol Last Admin: 01/26/18 15:40 Dose: Not Given Meropenem/Sodium Chloride (Merrem Iv 500 Mg/Ns 50 Ml) 500 mg in 50 mls @ 100 mls/hr IVPB Q12 [facility]; Protocol Stop: 02/05/18 10:01 Last Admin: 01/31/18 22:28 Dose: 100 mls/hr Daptomycin 700 mg/ Sodium (Chloride) 100 mls @ 200 mls/hr IV QOTHERDAY [facility] Stop: 02/06/18 10:01 Last Admin: 01/30/18 13:00 Dose: 200 mls/hr Insulin Human Regular (Humulin R High) 0 units SC ACHS [facility]; Protocol Last Admin: 02/01/18 08:31 Dose: Not Given Insulin Human Regular (Humulin R) 5 units SC AC [facility] Last Admin: 02/01/18 08:32 Dose: Not Given Latanoprost (Xalatan Opht) 0 ml OU HS [facility] Last Admin: 01/31/18 22:00 Dose: Not Given Levothyroxine Sodium (Synthroid) 50 mcg PO 0600 [facility] Last Admin: 02/01/18 06:29 Dose: 50 mcg Metoprolol Tartrate (Lopressor) 25 mg PO BID [facility] Last Admin: 01/31/18 17:11 Dose: Not Given Midodrine (Proamatine) 5 mg PO TID [facility] Last Admin: 01/31/18 17:10 Dose: 5 mg Ondansetron HCl (Zofran Inj) 4 mg IVP Q6H PRN PRN Reason: Nausea/Vomiting Last Admin: 01/31/18 09:27 Dose: 4 mg Oxycodone/Acetaminophen (Percocet 5/325 Mg Tab) 1 tab PO Q4H PRN PRN Reason: Pain, moderate (4-7) Stop: 02/02/18 11:08 Last Admin: 02/01/18 06:29 Dose: 1 tab Sodium Chloride ([place] Nasal [place]) 0 ml NS Q2 PRN PRN Reason: nasal congestion. Ticagrelor (Brilinta) 90 mg PO BID [facility] Last Admin: 01/29/18 15:03 Dose: 90 mg Zaleplon (Sonata) 5 mg PO HS [facility] Last Admin: 01/31/18 22:28 Dose: 5 mg - Labs Labs: 01/31/18 06:20 01/31/18 20:36 PT 18.7 sec (9.0-11.5) H 01/25/18 09:00 INR 1.77 01/23/18 08:50 APTT 33.8 Seconds (25.1-36.5) 01/23/18 08:50 - Constitutional Appears: Non-toxic, No Acute Distress - Head Exam Head Exam: NORMAL INSPECTION, NORMOCEPHALIC - ENT Exam ENT Exam: Mucous Membranes Dry - Respiratory Exam Respiratory Exam: Decreased Breath Sounds, NORMAL BREATHING PATTERN - Cardiovascular Exam Cardiovascular Exam: +S1, +S2 Additional comments: PPM - GI/Abdominal Exam GI & Abdominal Exam: Soft, Normal Bowel Sounds - Exam Additional comments: ESRD on hemodialysis 3x a week - Extremities Exam Additional comments: right leg BKA stump with pearl wrap left AV shunt positive bruit left middle finger amputation - Neurological Exam Neurological Exam: Alert, Awake - Psychiatric Exam Psychiatric exam: Normal Affect, Normal Mood - Skin Skin Exam: Dry, Normal Color, Warm Assessment and Plan - Assessment and Plan (Free Text) Assessment: A 52 year old male obese who came in to the ER due to diarrhea for the past week prior to admission. History of very brittle insulin dependent diabetes [facility], diabetic neuropathy,diabetic retinopathy,nephropathy,end stage renal disease, on hemodialysis 3x a week, left arm AV shunt /fistula, hypertension, hyperlipidemia,TIA, coronary artery disease with stents,resistant to Plavix, on Brilinta. severe peripheral vascular disease, post right below knee amputation, left middle finger amputation,TIA, PPM for sick sinus syndrome. subdural hematoma due to fall, COPD, pancreatitis. No evidence of myocardial infarction. Troponin negative, Positive for C-difficile.Right BKA stump positive for VRE. Blood culture from 01/17 positive for serratia, repeat blood culture done 01/18/18, so far no growth after [address] of head done to rule out bleeding. CT showed no hemorrhage/bleeding.Refusing CPAP/BIPAP at night. Had debridement of right BKA stump with wound VAC. status post WASTEWATER ANALYST LAB ANALYST for hypotension and bleeding from stump, # units of PRBC given.Transferred to ICU. Post right thoracenthesis for pleural effusion (1200 cc). Plan: Awake, alert, conversant, denies shortness of breath Blood pressure stable Heart rate stable Cardiac status stable Nutritional support Episode of hypoglycemia On ASA 81 mg daily,Lipitor 80 mg daily, Tricor 145 mg daily,Lopressor 25 mg BID, Midorine 5 mg TID, Synthroid 50 mcg daily,Heparin 5000 units SC every 12 hours Will continue to hold Brilinta Continue current treatment Continue current medications Continue IV antibiotics as per ID On contact isolation for VRE Physical therapy Chart reviewed Will follow up Plan and treatment discussed with Dr. Erickson
[2018-02-01] MEDS ORDERED: Dextrose 50% SYRINGE Inj (50 ml) IVP ONE (11:33)
--- NOTE | 2018-02-01 12:22 | PN ---
DATE: 02/01/2018 PULMONARY PROGRESS NOTE REFERRING PHYSICIAN: Dr. Gallo Potter SUBJECTIVE: He is lying in the bed, head at 45 degrees, getting blood glucose checked, night was unremarkable, moved out of Intensive Care Unit to telemetry. No headache, no rhinitis. Short of breath with exertion. No chest pain. No abdominal pain. Still has a stump discomfort, some peripheral discomfort. No nausea, no vomiting, no diarrhea. OBJECTIVE: GENERAL: In no acute distress. VITAL SIGNS: Temperature is 98, heart rate 68, respiratory rate is 18, blood pressure 102/64, pulse ox 96% on nasal cannula. HEENT: Moist mucous membrane. Crowded airway, Mallampati score is 4. NECK: Supple. No JVD. LUNGS: Have a fair airflow with rhonchi. HEART: S1, S2. ABDOMEN: Soft, nontender, no organomegaly. EXTREMITIES: Has a right BKA with dressing on the wound. Left has a trace edema. Right hand fifth digit ischemic, has a dressing on the left hand. NEUROLOGIC: Awake, alert, follows simple command. MEDICATIONS: He is on Brovana inhaled twice a day, Cymbalta 40 mg daily, daptomycin 700 mg, also getting DuoNeb every 6 hours p.r.n., Ecotrin 81 mg daily, Flonase one spray each nostril p.r.n., heparin 5000 units subcu every 12 hours., insulin coverage, Lipitor 80 mg daily, metoprolol tartrate 25 mg twice a day, meropenem is 500 mg every 12 hours., Mucinex LA 600 mg twice a day p.r.n., Pepcid 20 mg at bedtime, Percocet 5/325 one tablet every 4 hours p.r.n. midodrine 5 mg three times a day, Pulmicort inhaled twice a day, Sonata 5 mg at bedtime, Synthroid 15 mcg p.o. daily, TriCor 145 mg daily, Tylenol p.r.n., Zofran p.r.n. LABORATORY DATA: Shows blood sugar this morning is 100. Will repeat blood culture from 01/30, there is no growth and 01/28 blood culture has a VRE. IMPRESSION AND PLAN: Status post hemorrhagic shock with anemia requiring multiunit transfusion and platelet transfusion and there was large left pleural effusion requiring thoracentesis, renal failure, dialysis dependent, chronic obstructive lung disease, coronary artery disease, sleep apnea syndrome, cardiac arrhythmia requiring pacemaker, severe vascular disease status post right below knee amputation, status post left third digit amputation, has a right hand fifth digit gangrene, very brittle diabetes. Pulmonary point of view encourage CPAP use. Keep head at 45 degrees. Careful with sedation, pain management, bronchodilator, gastric prophylaxis, DVT prophylaxis. Fall precaution. Antibiotics as per Infectious Diseases. Thank you and we will follow with you Jarred Escalera MD
[2018-02-01] MEDS: DAPTOmycin 700 MG in Sodium Chloride 0.9% 100 ML IV SCH (12:32)
[2018-02-01] MEDS: MEROPENEM 500 MG in NS 500 MG/50 ML BAG IVPB SCH ×2 (12:34→22:38)
--- NOTE | 2018-02-01 14:35 | PN ---
DATE: 02/01/2018 REASON FOR CONSULTATION: Cardiac evaluation, history of coronary artery disease, status post rapid response, bleed from the stump, status post large volume thoracentesis surgery. Patient feels a lot better. Denies any chest pain, shortness of breath or any palpitations. Right little finger is getting gangrene. This note is in addition to dictated by nurse practitioner. RECOMMENDATION: Patient is off Brilinta because of the bleed. Since the bleeding stopped, it was resumed by the resident. Continue aspirin, continue heparin, continue atorvastatin, continue beta valerie, monitor H and H. History of coronary artery disease with multiple stents, severe PAD and gangrene of the toe. End-stage renal disease, on dialysis. We will follow with you. Increase nutrition support. Patient left, we will add on supplement Glucerna. Since the patient has recently bled, we held Brilinta and probably it was restarted by we will discontinue the Brilinta. It is more than 6 months and the patient is bleeding from the stump of amputation site. Continue baby aspirin. We will add on supplement. Encourage the patient to take Glucerna shake to improve the nutritional support. They will discuss with the mother. Yesterday, called the mother and informed the patient's condition. We will update again today. Patient had a repeat chest x-ray post thoracentesis that revealed moderate vascular congestion, improved left lower lobe infiltrate, significantly improved aeration and pleural effusion has significantly decreased. Thank you Dr. Potter for providing us the opportunity in taking care of the patient, Jason Wu. Jarred Erickson MD
[2018-02-01 14:40] LABS: TOTAL PROTEIN PLEURAL FLUID 1.6 g/dL
--- NOTE | 2018-02-01 20:07 | PN ---
DATE: 02/01/2018 SUBJECTIVE: The patient is in bed in no acute distress. He was seen earlier today in Room# 268, bed 2, and the patient is confused long ago in poor condition. He had no fevers. PHYSICAL EXAMINATION: VITAL SIGNS: Temperature is 98, blood pressure is 97/46, respiratory rate of 18, heart rate of 70. HEENT: Examination of HEENT is unremarkable. NECK: Supple. CARDIOPULMONARY: Heart sounds normal S1 and S2. LUNGS: Decreased breath sounds. ABDOMEN: Soft. LABORATORY DATA: Reveals the white count of 14,800, hemoglobin of 8, platelets of 115. Chemistry reveals the patient's BUN of 43, creatinine of 3.2. ASSESSMENT AND PLAN: The patient is a 52-year-old male with sepsis secondary to right thumb cellulitis, status post debridement and Serratia bacteremia, not only from the blood, but from the wound, also Vancomycin-Resistant Enterococci bacteremia, currently on daptomycin and meropenem. Overall prognosis quite poor for this patient with multiple organ failure, multiple allergy and we will follow. Jaspreet Forbes MD
[2018-02-01] MEDS: Latanoprost 2.5 ml Opht Soln OU SCH (22:40)
[2018-02-02] MEDS: Oxycodone/Acetaminophen 5/325 mg Tab PO PRN ×2 (03:25→08:40)
[2018-02-02] MEDS: Levothyroxine 25 MCG TAB PO SCH (05:42)
--- NOTE | 2018-02-02 06:34 | CP.PCM.PN ---
<Lolis Rivas - Last Filed: 02/02/18 10:48> Subjective - Date & Time of Evaluation Date of Evaluation: 02/02/18 Time of Evaluation: 07:00 - Subjective Subjective: Infectious Disease Progress Note for Simon Zepeda PGY3 Patient seen and examined at bedside. Patient is resting comfortably in bed and has no complaints at this time. He is afebrile. Objective - Vital Signs/Intake and Output Vital Signs (last 24 hours): Temp Pulse Resp BP Pulse Ox 98 F 88 18 146/83 96 02/01/18 17:35 02/01/18 22:00 02/01/18 17:35 02/01/18 18:22 02/01/18 05:55 Intake and Output: 02/01/18 02/02/18 18:59 06:59 Intake Total 600 Balance 600 - Medications Medications: Current Medications Acetaminophen (Tylenol 325mg Tab) 650 mg PO Q6H PRN PRN Reason: Pain, Mild (1-3) Albuterol/Ipratropium (Duoneb 3 Mg/0.5 Mg (3 Ml) Ud) 3 ml IH [id number] PRN PRN Reason: Shortness of Breath Last Admin: 01/27/18 13:07 Dose: 3 ml Arformoterol Tartrate (Brovana) 15 mcg IH [id number] [facility] Last Admin: 02/01/18 20:10 Dose: 15 mcg Aspirin (Ecotrin) 81 mg PO DAILY [facility] Last Admin: 02/01/18 12:31 Dose: 81 mg Atorvastatin Calcium (Lipitor) 80 mg PO HS [facility] Last Admin: 02/01/18 22:39 Dose: 80 mg Budesonide (Pulmicort Respules) 0.5 mg IH Q12H [facility] Last Admin: 02/01/18 20:10 Dose: 0.5 mg Duloxetine HCl (Cymbalta) 40 mg PO DAILY [facility] Last Admin: 02/01/18 12:31 Dose: 40 mg Famotidine (Pepcid) 20 mg PO HS [facility] Last Admin: 02/01/18 22:40 Dose: 20 mg Fenofibrate (Tricor) 145 mg PO DAILY [facility] Last Admin: 02/01/18 12:31 Dose: 145 mg Fluticasone Propionate (Flonase) 1 actuation NS DAILY PRN PRN Reason: Nasal congestion Guaifenesin (Mucinex La) 600 mg PO BID PRN PRN Reason: Cough Heparin Sodium (Porcine) (Heparin) 5,000 units SC Q12 [facility]; Protocol Last Admin: 01/26/18 15:40 Dose: Not Given Meropenem/Sodium Chloride (Merrem Iv 500 Mg/Ns 50 Ml) 500 mg in 50 mls @ 100 mls/hr IVPB Q12 [facility]; Protocol Stop: 02/05/18 10:01 Last Admin: 02/01/18 22:38 Dose: 100 mls/hr Daptomycin 700 mg/ Sodium (Chloride) 100 mls @ 200 mls/hr IV QOTHERDAY [facility] Stop: 02/06/18 10:01 Last Admin: 02/01/18 12:32 Dose: 200 mls/hr Dextrose (Dextrose 10% In Water) 500 mls @ 10 mls/hr IV .Q24H [facility] Last Admin: 02/01/18 12:18 Dose: 10 mls/hr Insulin Human Regular (Humulin R High) 0 units SC ACHS [facility]; Protocol Last Admin: 02/01/18 22:00 Dose: Not Given Insulin Human Regular (Humulin R) 5 units SC AC [facility] Last Admin: 02/01/18 15:50 Dose: Not Given Latanoprost (Xalatan Opht) 0 ml OU HS [facility] Last Admin: 02/01/18 22:40 Dose: 2.5 ml Levothyroxine Sodium (Synthroid) 50 mcg PO 0600 [facility] Last Admin: 02/02/18 05:42 Dose: 50 mcg Metoprolol Tartrate (Lopressor) 25 mg PO BID [facility] Last Admin: 02/01/18 18:22 Dose: 25 mg Midodrine (Proamatine) 5 mg PO TID [facility] Last Admin: 02/01/18 18:23 Dose: 5 mg Ondansetron HCl (Zofran Inj) 4 mg IVP Q6H PRN PRN Reason: Nausea/Vomiting Last Admin: 01/31/18 09:27 Dose: 4 mg Oxycodone/Acetaminophen (Percocet 5/325 Mg Tab) 1 tab PO Q4H PRN PRN Reason: Pain, moderate (4-7) Stop: 02/02/18 11:08 Last Admin: 02/02/18 03:25 Dose: 1 tab Sodium Chloride ([place] Nasal [place]) 0 ml NS Q2 PRN PRN Reason: nasal congestion. Zaleplon (Sonata) 5 mg PO HS [facility] Last Admin: 02/01/18 22:39 Dose: 5 mg - Labs Labs: 01/31/18 06:20 01/31/18 20:36 PT 18.7 sec (9.0-11.5) H 01/25/18 09:00 INR 1.77 01/23/18 08:50 APTT 33.8 Seconds (25.1-36.5) 01/23/18 08:50 - Constitutional Appears: No Acute Distress, Chronically Ill - Head Exam Head Exam: ATRAUMATIC, NORMAL INSPECTION, NORMOCEPHALIC - Eye Exam Eye Exam: Normal appearance, PERRL Pupil Exam: NORMAL ACCOMODATION, PERRL - ENT Exam ENT Exam: Mucous Membranes Moist - Neck Exam Neck Exam: Full ROM - Respiratory Exam Respiratory Exam: Clear to Ausculation Bilateral, NORMAL BREATHING PATTERN. absent: Rales, Rhonchi, Wheezes - Cardiovascular Exam Cardiovascular Exam: REGULAR RHYTHM, +S1, +S2, Murmur. absent: Gallop, Rubs - GI/Abdominal Exam GI & Abdominal Exam: Soft, Normal Bowel Sounds. absent: Rigid, Tenderness, Mass, Rebound - Extremities Exam Extremities Exam: absent: Normal Capillary Refill, Normal Inspection Additional comments: R leg stump wound vac in place- sanginous drainage R pinky finger necrotic - Neurological Exam Neurological Exam: Alert, Awake, CN II-XII Intact - Psychiatric Exam Psychiatric exam: Normal Affect, Normal Mood - Skin Skin Exam: Dry, Warm Assessment and Plan - Assessment and Plan (Free Text) Assessment: 1. Sepsis - secondary to R stump cellulitis s/p debridement - Positive for Serratia Bacteremia - Other set of BC (1+ for VRE) 2. R TMA stump gangrene 3. LLE pleural effusion s/p thoracentesis 4. Hx of Guerline glabrata fungemia 5. Hx of bilateral HCAP 6. Hx of sepsis secondary to C.diff 7. ESRD on HD 8. DM 9. CAD s/p PCI 10. Diabetic retinopathy 11. Obesity 12. Hx of pancreatitis Plan: Patient completed 14 days of Merrem. VRE in blood culture is not from contamin ation. He is on Daptomycin q48 day #4. He will need to complete at least 2 weeks. Will obtain echo to rule out endocarditis. Patient has one access which is a midline and is a vasculopath. Will get Daptomycin lock for midline. Will continue to monitor patient clinically. Prognosis is poor. Case seen, discussed and reviewed with Dr. Neli Rivas PGY3 <Pj Quinteros - Last Filed: 02/02/18 18:36> Objective - Vital Signs/Intake and Output Vital Signs (last 24 hours): Temp Pulse Resp BP Pulse Ox 97.8 F 88 17 98/52 L 97 02/02/18 17:30 02/02/18 17:30 02/02/18 17:30 02/02/18 17:30 02/02/18 17:30 Intake and Output: 02/02/18 02/02/18 06:59 18:59 Intake Total 360 Balance 360 - Medications Medications: Current Medications Acetaminophen (Tylenol 325mg Tab) 650 mg PO Q6H PRN PRN Reason: Pain, Mild (1-3) Albuterol/Ipratropium (Duoneb 3 Mg/0.5 Mg (3 Ml) Ud) 3 ml IH [id number] PRN PRN Reason: Shortness of Breath Last Admin: 01/27/18 13:07 Dose: 3 ml Arformoterol Tartrate (Brovana) 15 mcg IH [id number] [facility] Last Admin: 02/02/18 07:45 Dose: 15 mcg Aspirin (Ecotrin) 81 mg PO DAILY [facility] Last Admin: 02/02/18 11:07 Dose: 81 mg Atorvastatin Calcium (Lipitor) 80 mg PO HS [facility] Last Admin: 02/01/18 22:39 Dose: 80 mg Budesonide (Pulmicort Respules) 0.5 mg IH Q12H [facility] Last Admin: 02/02/18 07:46 Dose: 0.5 mg Duloxetine HCl (Cymbalta) 40 mg PO DAILY [facility] Last Admin: 02/02/18 11:07 Dose: 40 mg Famotidine (Pepcid) 20 mg PO HS [facility] Last Admin: 02/01/18 22:40 Dose: 20 mg Fenofibrate (Tricor) 145 mg PO DAILY [facility] Last Admin: 02/02/18 11:07 Dose: 145 mg Fluticasone Propionate (Flonase) 1 actuation NS DAILY PRN PRN Reason: Nasal congestion Guaifenesin (Mucinex La) 600 mg PO BID PRN PRN Reason: Cough Heparin Sodium (Porcine) (Heparin) 5,000 units SC Q12 [facility]; Protocol Last Admin: 01/26/18 15:40 Dose: Not Given Insulin Human Regular (Humulin R High) 0 units SC ACHS [facility]; Protocol Last Admin: 02/02/18 18:17 Dose: Not Given Insulin Human Regular (Humulin R) 5 units SC AC [facility] Last Admin: 02/02/18 18:17 Dose: Not Given Latanoprost (Xalatan Opht) 0 ml OU HS [facility] Last Admin: 02/01/18 22:40 Dose: 2.5 ml Levothyroxine Sodium (Synthroid) 50 mcg PO 0600 [facility] Last Admin: 02/02/18 05:42 Dose: 50 mcg Metoprolol Tartrate (Lopressor) 25 mg PO BID [facility] Last Admin: 02/02/18 18:17 Dose: Not Given Midodrine (Proamatine) 5 mg PO TID [facility] Last Admin: 02/02/18 15:39 Dose: 5 mg Ondansetron HCl (Zofran Inj) 4 mg IVP Q6H PRN PRN Reason: Nausea/Vomiting Last Admin: 01/31/18 09:27 Dose: 4 mg Sodium Chloride ([place] Nasal [place]) 0 ml NS Q2 PRN PRN Reason: nasal congestion. Zaleplon (Sonata) 5 mg PO HS [facility] Last Admin: 02/01/18 22:39 Dose: 5 mg - Labs Labs: 01/31/18 06:20 01/31/18 20:36 PT 18.7 sec (9.0-11.5) H 01/25/18 09:00 INR 1.77 01/23/18 08:50 APTT 33.8 Seconds (25.1-36.5) 01/23/18 08:50 Assessment and Plan - Assessment and Plan (Free Text) Plan: Infectious Diseases Attending Physician Attestation Patient seen and examined, discussed with medical insurance clerk. I have reviewed the patient's history of present illness, past medical, family and social histories, personal history, physical exam, lab findings and imaging studies. I agree with the above findings, assessment and plan. In addition, complete the 14 days of Merrem for Serratia bacteremia from left foot stump infection. Now with VRE bacteremia, suspect right midline catheter infection, R/O ICD infection - will need to get 2D echo as well. we will continue Daptomycin. Overall prognosis is poor.
[2018-02-02] MEDS: Arformoterol 15 mcg/2 ml Inh Sol IH SCH ×2 (07:45→20:15)
[2018-02-02] MEDS: Budesonide 0.5 mg/2 ml Inhal Susp UD IH SCH ×2 (07:46→20:15)
[2018-02-02] MEDS: Insulin Regular 1 UNITS/0.01 ML ML SC SCH ×3 (08:38→18:17)
[2018-02-02] MEDS: Insulin Reg-HIGH-Coverage SC SCH ×4 (08:39→23:25)
--- NOTE | 2018-02-02 10:05 | CP.PCM.PN ---
<Jojo Crouch - Last Filed: 02/02/18 10:07> Subjective - Date & Time of Evaluation Date of Evaluation: 02/02/18 Time of Evaluation: 10:00 - Subjective Subjective: Jojo Crouch DO, PGY-2: Progress Note for Dr. Potter Patient was seen and examined at bedside. Patient denies any fever, chills, nausea, or vomiting. He reports his pain is fairly well controlled. Objective - Vital Signs/Intake and Output Vital Signs (last 24 hours): Temp Pulse Resp BP Pulse Ox 98.5 F 88 18 100/48 L 100 02/02/18 06:00 02/02/18 06:00 02/02/18 06:00 02/02/18 06:00 02/02/18 06:00 Intake and Output: 02/02/18 02/02/18 06:59 18:59 Intake Total 360 Balance 360 - Medications Medications: Current Medications Acetaminophen (Tylenol 325mg Tab) 650 mg PO Q6H PRN PRN Reason: Pain, Mild (1-3) Albuterol/Ipratropium (Duoneb 3 Mg/0.5 Mg (3 Ml) Ud) 3 ml IH [id number] PRN PRN Reason: Shortness of Breath Last Admin: 01/27/18 13:07 Dose: 3 ml Arformoterol Tartrate (Brovana) 15 mcg IH [id number] [facility] Last Admin: 02/02/18 07:45 Dose: 15 mcg Aspirin (Ecotrin) 81 mg PO DAILY [facility] Last Admin: 02/01/18 12:31 Dose: 81 mg Atorvastatin Calcium (Lipitor) 80 mg PO HS [facility] Last Admin: 02/01/18 22:39 Dose: 80 mg Budesonide (Pulmicort Respules) 0.5 mg IH Q12H [facility] Last Admin: 02/02/18 07:46 Dose: 0.5 mg Duloxetine HCl (Cymbalta) 40 mg PO DAILY [facility] Last Admin: 02/01/18 12:31 Dose: 40 mg Famotidine (Pepcid) 20 mg PO HS [facility] Last Admin: 02/01/18 22:40 Dose: 20 mg Fenofibrate (Tricor) 145 mg PO DAILY [facility] Last Admin: 02/01/18 12:31 Dose: 145 mg Fluticasone Propionate (Flonase) 1 actuation NS DAILY PRN PRN Reason: Nasal congestion Guaifenesin (Mucinex La) 600 mg PO BID PRN PRN Reason: Cough Heparin Sodium (Porcine) (Heparin) 5,000 units SC Q12 [facility]; Protocol Last Admin: 01/26/18 15:40 Dose: Not Given Meropenem/Sodium Chloride (Merrem Iv 500 Mg/Ns 50 Ml) 500 mg in 50 mls @ 100 mls/hr IVPB Q12 [facility]; Protocol Stop: 02/05/18 10:01 Last Admin: 02/01/18 22:38 Dose: 100 mls/hr Daptomycin 700 mg/ Sodium (Chloride) 100 mls @ 200 mls/hr IV QOTHERDAY [facility] Stop: 02/06/18 10:01 Last Admin: 02/01/18 12:32 Dose: 200 mls/hr Dextrose (Dextrose 10% In Water) 500 mls @ 10 mls/hr IV .Q24H [facility] Last Admin: 02/01/18 12:18 Dose: 10 mls/hr Insulin Human Regular (Humulin R High) 0 units SC ACHS [facility]; Protocol Last Admin: 02/02/18 08:39 Dose: Not Given Insulin Human Regular (Humulin R) 5 units SC AC [facility] Last Admin: 02/02/18 08:38 Dose: Not Given Latanoprost (Xalatan Opht) 0 ml OU HS [facility] Last Admin: 02/01/18 22:40 Dose: 2.5 ml Levothyroxine Sodium (Synthroid) 50 mcg PO 0600 [facility] Last Admin: 02/02/18 05:42 Dose: 50 mcg Metoprolol Tartrate (Lopressor) 25 mg PO BID [facility] Last Admin: 02/01/18 18:22 Dose: 25 mg Midodrine (Proamatine) 5 mg PO TID [facility] Last Admin: 02/01/18 18:23 Dose: 5 mg Ondansetron HCl (Zofran Inj) 4 mg IVP Q6H PRN PRN Reason: Nausea/Vomiting Last Admin: 01/31/18 09:27 Dose: 4 mg Oxycodone/Acetaminophen (Percocet 5/325 Mg Tab) 1 tab PO Q4H PRN PRN Reason: Pain, moderate (4-7) Stop: 02/02/18 11:08 Last Admin: 02/02/18 08:40 Dose: 1 tab Sodium Chloride ([place] Nasal [place]) 0 ml NS Q2 PRN PRN Reason: nasal congestion. Zaleplon (Sonata) 5 mg PO HS [facility] Last Admin: 02/01/18 22:39 Dose: 5 mg - Labs Labs: 01/31/18 06:20 01/31/18 20:36 PT 18.7 sec (9.0-11.5) H 01/25/18 09:00 INR 1.77 01/23/18 08:50 APTT 33.8 Seconds (25.1-36.5) 01/23/18 08:50 - Constitutional Appears: Older Than Stated Age, Chronically Ill - Head Exam Head Exam: ATRAUMATIC Additional comments: bradley facies - Eye Exam Eye Exam: EOMI, Normal appearance - ENT Exam ENT Exam: Mucous Membranes Moist - Neck Exam Neck Exam: Normal Inspection - Respiratory Exam Respiratory Exam: Decreased Breath Sounds, Clear to Ausculation Bilateral (bilateral lung base), NORMAL BREATHING PATTERN. absent: Accessory Muscle Use - Cardiovascular Exam Cardiovascular Exam: RRR, +S1, +S2 - GI/Abdominal Exam GI & Abdominal Exam: Soft, Normal Bowel Sounds - Extremities Exam Extremities Exam: Normal Inspection - Back Exam Back Exam: absent: CVA tenderness (L), CVA tenderness (R) - Neurological Exam Neurological Exam: Alert, Awake, Oriented x3 - Psychiatric Exam Psychiatric exam: Depressed - Skin Skin Exam: Dry, Intact, Normal Color, Warm Assessment and Plan - Assessment and Plan (Free Text) Assessment: 52 year old male with a past medical history notable for ESRD, CAD with ID 4 months ago, right BKA, and left third digit amputation who presents with melena and diarrhea. 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 Patient is s/p local debridement and wound vacuum placement of the right BKA. Right pinky finger has , we will let it fall off. Interventional radiologist was consulted and performed a thoracentesis and removed 1,200. Also patient may get an angiogram to evaluate vasculature of right upper extremity.. 1) Sepsis secondary to VRE which is MDR - Wound care per surgery - New blood cultures growing MDR VRE - Antibiotics per ID 2) Hemmorhagic shock s/p transfusion of 3 units of PRBCS and 1 unit of leukocyte reduced platelets; resolved - Norepinephrine has been discontinued - ICU team started Midodrine for blood pressure, will continue 3) of right pinky secondary to dry gangrene - Dr. Wynn recommends angiogram of the right arm 4) ESRD - Continue with dialysis 5) CAD - Continue Brillinta 90 mg BID - Aspirin 81 mg - Metroprolol 25 mg BID - Atorvastatin 80 mg HS - Dr. Erickson consulted, appreciate recommendations 6) DM II - Humulin 5 mg AC with fingerstick BG ACHS - Blood sugars goals are between 150-200 7) Upper respiratory symptoms - Mucinex LA 650 PRN - Flonase PRN - Duonebs q6h PRN for dyspnea 8) Hypothyroidism - Levothyroxine 50 mcg PO daily 9) Hyperlipidemia - Fenofibrate 145 mg PO daily 10) Glaucoma - Latanoprost drops OU 11) RENATA - Continue with noninvasive positive airway pressure, unless otherwise indicated by pulmonology 12) Depressed mood in a patient with multiple, life-threatening comorbidities - Dr. Malin consulted, patient may benefit from cognitive behavioral therapy and medications, appreciate recommendations - Agree with Sonata and Duloxetine 13) Physical therapy in the setting of recent BKA - Physical therapy evaluation submitted 14) DVT/GI prophylaxis - Heparin 5,000 q12h (currently being held) - Pepcid 20 mg HS Case was reviewed and discussed with attending physician, Dr. Potter <Gallo Potter S - Last Filed: 02/03/18 14:39> Objective - Vital Signs/Intake and Output Vital Signs (last 24 hours): Temp Pulse Resp BP Pulse Ox 98 F 72 18 146/53 L 97 02/03/18 12:00 02/03/18 12:00 02/03/18 12:00 02/03/18 12:00 02/02/18 17:30 Intake and Output: 02/03/18 02/03/18 06:59 18:59 Intake Total 60 Balance 60 - Medications Medications: Current Medications Acetaminophen (Tylenol 325mg Tab) 650 mg PO Q6H PRN PRN Reason: Pain, Mild (1-3) Last Admin: 02/03/18 09:49 Dose: 650 mg Albuterol/Ipratropium (Duoneb 3 Mg/0.5 Mg (3 Ml) Ud) 3 ml IH [id number] PRN PRN Reason: Shortness of Breath Last Admin: 01/27/18 13:07 Dose: 3 ml Arformoterol Tartrate (Brovana) 15 mcg IH [id number] [facility] Last Admin: 02/03/18 09:14 Dose: 15 mcg Aspirin (Ecotrin) 81 mg PO DAILY [facility] Last Admin: 02/03/18 09:40 Dose: 81 mg Atorvastatin Calcium (Lipitor) 80 mg PO HS [facility] Last Admin: 02/03/18 05:36 Dose: Not Given Budesonide (Pulmicort Respules) 0.5 mg IH Q12H [facility] Last Admin: 02/03/18 09:15 Dose: 0.5 mg Duloxetine HCl (Cymbalta) 40 mg PO DAILY [facility] Last Admin: 02/03/18 09:40 Dose: 40 mg Famotidine (Pepcid) 20 mg PO HS [facility] Last Admin: 02/01/18 22:40 Dose: 20 mg Fenofibrate (Tricor) 145 mg PO DAILY [facility] Last Admin: 02/03/18 09:40 Dose: 145 mg Fluticasone Propionate (Flonase) 1 actuation NS DAILY PRN PRN Reason: Nasal congestion Guaifenesin (Mucinex La) 600 mg PO BID PRN PRN Reason: Cough Heparin Sodium (Porcine) (Heparin) 5,000 units SC Q12 [facility]; Protocol Last Admin: 01/26/18 15:40 Dose: Not Given Daptomycin 650 mg/ Sodium (Chloride) 100 mls @ 200 mls/hr IV Q24H [facility] Stop: 02/08/18 10:01 Last Admin: 02/03/18 12:19 Dose: 200 mls/hr Insulin Human Regular (Humulin R High) 0 units SC ACHS [facility]; Protocol Last Admin: 02/03/18 14:10 Dose: Not Given Insulin Human Regular (Humulin R) 5 units SC AC [facility] Last Admin: 02/03/18 12:19 Dose: Not Given Latanoprost (Xalatan Opht) 0 ml OU HS [facility] Last Admin: 02/02/18 23:34 Dose: Not Given Levothyroxine Sodium (Synthroid) 50 mcg PO 0600 [facility] Last Admin: 02/03/18 09:43 Dose: 50 mcg Metoprolol Tartrate (Lopressor) 25 mg PO BID [facility] Last Admin: 02/03/18 09:47 Dose: 25 mg Midodrine (Proamatine) 5 mg PO TID [facility] Last Admin: 02/03/18 09:40 Dose: 5 mg Ondansetron HCl (Zofran Inj) 4 mg IVP Q6H PRN PRN Reason: Nausea/Vomiting Last Admin: 02/02/18 20:16 Dose: 4 mg Sodium Chloride ([place] Nasal [place]) 0 ml NS Q2 PRN PRN Reason: nasal congestion. Zaleplon (Sonata) 5 mg PO HS [facility] Last Admin: 02/01/18 22:39 Dose: 5 mg - Labs Labs: 02/03/18 07:00 02/03/18 07:00 PT 18.7 sec (9.0-11.5) H 01/25/18 09:00 INR 1.77 01/23/18 08:50 APTT 33.8 Seconds (25.1-36.5) 01/23/18 08:50 Assessment and Plan - Assessment and Plan (Free Text) Assessment: Pt seen and examined. I have reviewed the note of the center medical and lab director and agree with it. I have discussed the assessment and plan with the resident. I have reviewed the patient's labs and medications. Sepsis is being treated. I spoke to the pt's mother and sister yesterday. Gave her an update on the poor prognosis. The sister asked about transfer to [place]. I advised to find a accepting physician and I would be able to transfer. Spoke to Dr Alfredo Wynn and options are limited. The R arm angiogram showed distal disease. R BKA wound is healing. He is continuing with HD. He does become confused at times, sometimes it is due to his pain medications. When I decrease the meds he complains of pain.
--- NOTE | 2018-02-02 11:50 | PN ---
DATE: 02/02/2018 REASON FOR CONSULTATION AND FOLLOWUP: Cardiac evaluation, history of coronary artery disease, peripheral arterial disease, history of massive bleeding from the stump after debridement status post rapid response. SUBJECTIVE: The patient denies any chest pain, shortness of breath or any palpitations. OBJECTIVE: GENERAL: Not in apparent distress. VITAL SIGNS: Temperature afebrile, heart rate 60, blood pressure 140/80. HEENT: PERRLA. Extraocular muscles intact. NECK: Supple. No carotid bruit. No thyromegaly. CHEST: Clear to auscultation. HEART: S1, S2 regular. ABDOMEN: Soft. EXTREMITIES: Clubbing and cyanosis negative. Right BKA is in dressing. LABORATORY DATA: Hemoglobin, as of 01/31/2018, is 8.4 and hematocrit 26. IMPRESSION: A 52-year-old male with history of diabetic retinopathy, neuropathy, nephropathy, end-stage renal disease on dialysis, history of multiple stents in the heart, history of severe peripheral arterial disease status post right below-knee amputation for gangrene foot, history of left middle finger amputation for gangrene, now the gangrene of the right finger, rule out hypercoagulable state, history of revision of stump followed by massive bleeding with rapid response, status post 3 units of packed RBC. RECOMMENDATION: Brilinta is on hold and discontinued. Continue baby aspirin. Continue atorvastatin. Continue dialysis. Continue beta-valerie, metoprolol. Monitor H and H, repeat H and H. If it goes below, consider packed RBC transfusion because of underlying coronary artery disease. History of large left pleural effusion status post thoracentesis, 1.2 liters of fluid drained. Continue rehab. Overall, the patient's condition is critical. Long-term prognosis is guarded. Discussed with mother Ab, updated patient's condition day before yesterday. We will repeat the blood workup in the morning. Jarred Erickson MD
[2018-02-02] MEDS ORDERED: DAPTOMYCIN CVC SCH ×2 (12:20→13:28)
[2018-02-02] MEDS ORDERED: PREMIXED CVC SCH ×2 (12:20→13:28)
[2018-02-02] MEDS ORDERED: HEPARIN CVC SCH ×2 (12:20→13:28)
[2018-02-02] MEDS ORDERED: Iodixanol 320 MG/ML 200 ML BOTTLE IV ONE (15:23)
[2018-02-02] MEDS ORDERED: Lidocaine 2% Inj (20ml) ONE (15:23)
[2018-02-02] MEDS ORDERED: Iodixanol 320 mg/ml 150 ml Bottle IV ONE (15:23)
[2018-02-02] MEDS ORDERED: Nitroglycerin 50mg in D5W 50 MG/250 ML BOTTLE IV ONE (15:23)
[2018-02-02] MEDS ORDERED: Midazolam 2 MG/2 ML VIAL ONE (16:25)
--- NOTE | 2018-02-02 17:55 | PN ---
DATE: 02/02/2018 PULMONARY PROGRESS NOTE REFERRING PHYSICIAN: Gallo Potter MD SUBJECTIVE: He is lying in the bed, awake, alert, confused. No cough. No sputum production. Denying any significant pain. No nausea. No vomiting. No diarrhea. OBJECTIVE: GENERAL: In no acute distress. VITAL SIGNS: Temperature is 98, heart rate is 90, respiratory rate is 20, blood pressure 86/42, pulse ox is 100% on nasal cannula. HEENT: Moist mucous membrane. Crowded airway. Mallampati score is 4. NECK: Supple. No JVD. LUNGS: Have a few scattered rhonchi. HEART: S1 and S2. ABDOMEN: Soft, nontender. No organomegaly. EXTREMITIES: Right leg has BKA with dressing on the stump. Also have an ischemia of the right fifth finger. NEUROLOGICAL: Awake and alert. Follows simple command, but confused. MEDICATIONS: He is on Brovana inhaled twice a day, Cymbalta 40 mg daily, DuoNeb every 6 hours p.r.n., Ecotrin 81 mg daily, Flonase once to each nostril daily p.r.n., heparin 5000 units subcu every 12 hours, insulin coverage, Lipitor 80 mg daily, metoprolol tartrate 25 mg twice a day, Mucinex LA 600 mg twice a day, nasal saline 2 spray to each nostril every 2 hours p.r.n., Pepcid 20 mg daily, midodrine 5 mg three times a day, budesonide inhaled twice a day, Sonata 5 mg at bedtime, Synthroid 50 mcg daily, TriCor 145 mg daily, Tylenol p.r.n., Zofran p.r.n. LABORATORY DATA: Reviewed. Noted blood sugar this morning 123. Microbiology: Pleural fluid culture, there is no growth. Repeat blood culture from 01/30/2018 so far there is no growth. IMPRESSION AND PLAN: Status post hemorrhagic shock secondary to anemia and blood loss requiring transfusion, thrombocytopenia, also require platelet transfusion, renal failure, dialysis dependent, peripheral neuropathy status post right below-knee amputation, chronic obstructive lung disease, coronary artery disease, history of coronary stent, cardiac arrhythmia requiring pacemaker, has a bacteremia sepsis, probably source is infected stump. Pulmonary point of view, he is doing okay. Continue bronchodilator. Keep head at 45 degrees. Aspiration precaution. Sleep apnea precaution. Careful with sedation. Gastric prophylaxis, deep vein thrombosis prophylaxis. To some extent confused today and has a paranoid thinking. Overall poor prognosis with multiorgan dysfunction. Thank you and we will follow with you. Jarred Escalrea MD
[2018-02-02] MEDS: MEROPENEM 500 MG in NS 500 MG/50 ML BAG IVPB SCH (18:18)
--- NOTE | 2018-02-02 18:22 | VASCULAR ---
Date of service: 02/02/2018 PROCEDURE: Abdominal aortogram and bilateral lower extremity runoff. HISTORY: 1. Arch arteriogram 2. Selective right upper extremity DSA arteriogram PHYSICIAN(S): Alfredo Wnyn MD. TECHNIQUE: The relative risks and indications of the procedure were explained to the patient and consent obtained. The patient was placed supine on the arteriogram table in the right groin prepped and draped usual sterile fashion. Conscious sedation monitoring were provided throughout the procedure by a nurse. Via a right common femoral artery approach, a 5 [place] sheath was placed in the right groin. Through the sheath and over a guidewire, a 5 [place] flush catheter was placed in the aortic arch and an SEEMA DSA arch arteriogram performed. Exchange is made for a 5 [place] day this catheter placed in the right subclavian artery. An overlapping DSA right subclavian arteriogram was performed. The catheter was advanced down to the right brachial artery and distal imaging performed. Images of the hand were also obtained. Nitroglycerin was given. The sheath was removed hemostasis obtained with a Perclose device. The patient tolerated the procedure well. FINDINGS: The aortic arch and arch vessels are normal and widely patent. A pacemaker is been placed on the right. The right subclavian artery, right axillary artery, and right brachial artery are widely patent and relatively normal. The right brachial bifurcation is patent. Calcification of the forearm arteries is noted but the arteries are widely patent with mild disease. The johnson arch is intact. There is severe disease of the right hand involving the metacarpal arteries and digital arteries. This is most severe involving the 5th digit. IMPRESSION: 1. Severe small vessel disease of the right hand involving the metacarpal arteries and digital arteries. 2. Proximal arteries of the right upper extremity are widely patent
[2018-02-02 19:22] LABS: BASO # 0.01 K/mm3 (0.0-2.0); BASO % 0.1 % (0.0-3.0); EOS % 0.2 % (1.5-5.0); GRAN # 9.08 (1.4-6.5); GRAN % 79.7 % (50.0-68.0); HEMOGLOBIN 7.7 g/dL (14.0-18.0); LYMPH # 1.2 (1.2-3.4); LYMPH % 10.1 % (22.0-35.0); MEAN CELL VOLUME 97.2 fl (80.0-105.0); MEAN CORPUSCULAR HEMOGLOBIN 31.2 pg (25.0-35.0); MEAN CORPUSCULAR HGB CONC 32.1 g/dl (31.0-37.0); MEAN PLATELET VOLUME 11.9 fl (7.0-11.0); MONO # 1.1 (0.1-0.6); MONO % 9.9 % (1.0-6.0); RBC 2.47 10^6/uL (3.5-6.1); RED CELL DISTRIBUTION WIDTH 19.8 % (11.5-14.5); WHITE BLOOD COUNT 11.4 10^3/uL (4.5-11.0)
[2018-02-02 19:41] LABS: ALB/GLOB RATIO 0.6 (1.1-1.8); ALBUMIN 2.2 g/dL (3.0-4.8); CALCIUM 7.4 mg/dL (8.4-10.5)
--- NOTE | 2018-02-02 22:59 | CP.PCM.PN ---
Subjective - Date & Time of Evaluation Date of Evaluation: 02/02/18 Time of Evaluation: 13:00 - Subjective Subjective: Feeling better. Objective - Vital Signs/Intake and Output Vital Signs (last 24 hours): Temp Pulse Resp BP Pulse Ox 97.8 F 88 17 98/52 L 97 02/02/18 17:30 02/02/18 17:30 02/02/18 17:30 02/02/18 17:30 02/02/18 17:30 Intake and Output: 02/02/18 02/03/18 18:59 06:59 Intake Total 0 Balance 0 - Medications Medications: Current Medications Acetaminophen (Tylenol 325mg Tab) 650 mg PO Q6H PRN PRN Reason: Pain, Mild (1-3) Albuterol/Ipratropium (Duoneb 3 Mg/0.5 Mg (3 Ml) Ud) 3 ml IH [id number] PRN PRN Reason: Shortness of Breath Last Admin: 01/27/18 13:07 Dose: 3 ml Arformoterol Tartrate (Brovana) 15 mcg IH [id number] [facility] Last Admin: 02/02/18 07:45 Dose: 15 mcg Aspirin (Ecotrin) 81 mg PO DAILY [facility] Last Admin: 02/02/18 11:07 Dose: 81 mg Atorvastatin Calcium (Lipitor) 80 mg PO HS [facility] Last Admin: 02/01/18 22:39 Dose: 80 mg Budesonide (Pulmicort Respules) 0.5 mg IH Q12H [facility] Last Admin: 02/02/18 07:46 Dose: 0.5 mg Duloxetine HCl (Cymbalta) 40 mg PO DAILY [facility] Last Admin: 02/02/18 11:07 Dose: 40 mg Famotidine (Pepcid) 20 mg PO HS [facility] Last Admin: 02/01/18 22:40 Dose: 20 mg Fenofibrate (Tricor) 145 mg PO DAILY [facility] Last Admin: 02/02/18 11:07 Dose: 145 mg Fluticasone Propionate (Flonase) 1 actuation NS DAILY PRN PRN Reason: Nasal congestion Guaifenesin (Mucinex La) 600 mg PO BID PRN PRN Reason: Cough Heparin Sodium (Porcine) (Heparin) 5,000 units SC Q12 [facility]; Protocol Last Admin: 01/26/18 15:40 Dose: Not Given Insulin Human Regular (Humulin R High) 0 units SC ACHS [facility]; Protocol Last Admin: 02/02/18 18:17 Dose: Not Given Insulin Human Regular (Humulin R) 5 units SC AC [facility] Last Admin: 02/02/18 18:17 Dose: Not Given Latanoprost (Xalatan Opht) 0 ml OU HS [facility] Last Admin: 02/01/18 22:40 Dose: 2.5 ml Levothyroxine Sodium (Synthroid) 50 mcg PO 0600 [facility] Last Admin: 02/02/18 05:42 Dose: 50 mcg Metoprolol Tartrate (Lopressor) 25 mg PO BID [facility] Last Admin: 02/02/18 18:17 Dose: Not Given Midodrine (Proamatine) 5 mg PO TID [facility] Last Admin: 02/02/18 15:39 Dose: 5 mg Ondansetron HCl (Zofran Inj) 4 mg IVP Q6H PRN PRN Reason: Nausea/Vomiting Last Admin: 02/02/18 20:16 Dose: 4 mg Sodium Chloride ([place] Nasal [place]) 0 ml NS Q2 PRN PRN Reason: nasal congestion. Zaleplon (Sonata) 5 mg PO HS [facility] Last Admin: 02/01/18 22:39 Dose: 5 mg - Labs Labs: 02/02/18 19:00 02/02/18 19:00 PT 18.7 sec (9.0-11.5) H 01/25/18 09:00 INR 1.77 01/23/18 08:50 APTT 33.8 Seconds (25.1-36.5) 01/23/18 08:50 - Head Exam Head Exam: ATRAUMATIC - Eye Exam Eye Exam: Normal appearance - ENT Exam ENT Exam: Mucous Membranes Dry - Respiratory Exam Respiratory Exam: NORMAL BREATHING PATTERN - Cardiovascular Exam Cardiovascular Exam: +S1, +S2 - GI/Abdominal Exam GI & Abdominal Exam: Normal Bowel Sounds Assessment and Plan (1) Hypercoagulable state Assessment & Plan: noted slightly diminished protein S activity; may be low due recent bleeding/clotting on dual antiplatelet therapy Status: Acute (2) Thrombocytopenia Assessment & Plan: mild improved from prior HIV and hepatitis B/C negative antiphospholipid Ab panel negative Status: Acute (3) Anemia Assessment & Plan: anemia of CKD anemia of chronic disease right LE stump bleeding transfusion support PRN Status: Acute (4) Leukocytosis Assessment & Plan: on antibiotics Status: Acute (5) Coagulopathy Assessment & Plan: repeat mixing study pending prior study corrected suggesting factor deficiency/nutritional coagulopathy Status: Acute
[2018-02-02] MEDS: Latanoprost 2.5 ml Opht Soln OU SCH (23:34)
[2018-02-03 07:24] LABS: BASO # 0.01 K/mm3 (0.0-2.0); BASO % 0.1 % (0.0-3.0); EOS % 0.2 % (1.5-5.0); GRAN # 11.66 (1.4-6.5); GRAN % 84.7 % (50.0-68.0); HEMOGLOBIN 8.3 g/dL (14.0-18.0); LYMPH # 0.8 (1.2-3.4); LYMPH % 6.1 % (22.0-35.0); MEAN CELL VOLUME 97.4 fl (80.0-105.0); MEAN CORPUSCULAR HEMOGLOBIN 31.2 pg (25.0-35.0); MONO # 1.2 (0.1-0.6); MONO % 8.9 % (1.0-6.0); RBC 2.66 10^6/uL (3.5-6.1); WHITE BLOOD COUNT 13.8 10^3/uL (4.5-11.0)
--- NOTE | 2018-02-03 07:44 | CP.PCM.PN ---
Subjective - Date & Time of Evaluation Date of Evaluation: 02/03/18 Time of Evaluation: 06:45 - Subjective Subjective: No distress, wake, Lying in bed, denies shortness of breath Reason for consultation and follow up: Cardiac evaluation of chest pain,follow up of coronary artery disease, History of PPM, admitted for diarrhea, infected right BKA stump with debridement and wound VAC, status post [employer] for hypotension and bleeding from stump, post thoracenthesis for pleural effusion Seen and examined by me and Dr. Goodwin Objective - Vital Signs/Intake and Output Vital Signs (last 24 hours): Temp Pulse Resp BP Pulse Ox 97.8 F 94 H 17 98/52 L 97 02/02/18 17:30 02/03/18 01:41 02/02/18 17:30 02/02/18 17:30 02/02/18 17:30 Intake and Output: 02/03/18 02/03/18 06:59 18:59 Intake Total 60 Balance 60 - Medications Medications: Current Medications Acetaminophen (Tylenol 325mg Tab) 650 mg PO Q6H PRN PRN Reason: Pain, Mild (1-3) Albuterol/Ipratropium (Duoneb 3 Mg/0.5 Mg (3 Ml) Ud) 3 ml IH [id number] PRN PRN Reason: Shortness of Breath Last Admin: 01/27/18 13:07 Dose: 3 ml Arformoterol Tartrate (Brovana) 15 mcg IH [id number] [facility] Last Admin: 02/02/18 20:15 Dose: Not Given Aspirin (Ecotrin) 81 mg PO DAILY [facility] Last Admin: 02/02/18 11:07 Dose: 81 mg Atorvastatin Calcium (Lipitor) 80 mg PO [facility] Last Admin: 02/03/18 05:36 Dose: Not Given Budesonide (Pulmicort Respules) 0.5 mg IH Q12H [facility] Last Admin: 02/02/18 20:15 Dose: Not Given Duloxetine HCl (Cymbalta) 40 mg PO DAILY [facility] Last Admin: 02/02/18 11:07 Dose: 40 mg Famotidine (Pepcid) 20 mg PO [facility] Last Admin: 02/01/18 22:40 Dose: 20 mg Fenofibrate (Tricor) 145 mg PO DAILY [facility] Last Admin: 02/02/18 11:07 Dose: 145 mg Fluticasone Propionate (Flonase) 1 actuation NS DAILY PRN PRN Reason: Nasal congestion Guaifenesin (Mucinex La) 600 mg PO BID PRN PRN Reason: Cough Heparin Sodium (Porcine) (Heparin) 5,000 units SC Q12 [facility]; Protocol Last Admin: 01/26/18 15:40 Dose: Not Given Insulin Human Regular (Humulin R High) 0 units SC ACHS [facility]; Protocol Last Admin: 02/02/18 23:25 Dose: Not Given Insulin Human Regular (Humulin R) 5 units SC AC [facility] Last Admin: 02/02/18 18:17 Dose: Not Given Latanoprost (Xalatan Opht) 0 ml OU HS [facility] Last Admin: 02/02/18 23:34 Dose: Not Given Levothyroxine Sodium (Synthroid) 50 mcg PO 0600 [facility] Last Admin: 02/02/18 05:42 Dose: 50 mcg Metoprolol Tartrate (Lopressor) 25 mg PO BID [facility] Last Admin: 02/02/18 18:17 Dose: Not Given Midodrine (Proamatine) 5 mg PO TID [facility] Last Admin: 02/02/18 15:39 Dose: 5 mg Ondansetron HCl (Zofran Inj) 4 mg IVP Q6H PRN PRN Reason: Nausea/Vomiting Last Admin: 02/02/18 20:16 Dose: 4 mg Sodium Chloride ([place] Nasal [place]) 0 ml NS Q2 PRN PRN Reason: nasal congestion. Zaleplon (Sonata) 5 mg PO HS [facility] Last Admin: 02/01/18 22:39 Dose: 5 mg - Labs Labs: 02/03/18 07:00 02/02/18 19:00 PT 18.7 sec (9.0-11.5) H 01/25/18 09:00 INR 1.77 01/23/18 08:50 APTT 33.8 Seconds (25.1-36.5) 01/23/18 08:50 - Constitutional Appears: Non-toxic, No Acute Distress - Head Exam Head Exam: NORMAL INSPECTION, NORMOCEPHALIC - ENT Exam ENT Exam: Mucous Membranes Dry - Respiratory Exam Respiratory Exam: Decreased Breath Sounds, NORMAL BREATHING PATTERN - Cardiovascular Exam Cardiovascular Exam: +S1, +S2 Additional comments: PPM - GI/Abdominal Exam GI & Abdominal Exam: Distended, Soft, Normal Bowel Sounds - Exam Additional comments: ESRD on hemodialysis 3x a week - Extremities Exam Additional comments: right BKA stump with pearl wrap left middle finger amputation Left AV shunt positive bruit right pinky (5th digit) necrotic - Neurological Exam Neurological Exam: Alert, Awake - Psychiatric Exam Psychiatric exam: Normal Affect, Normal Mood - Skin Skin Exam: Dry, Normal Color, Warm Assessment and Plan - Assessment and Plan (Free Text) Assessment: A 52 year old male obese who came in to the ER due to diarrhea for the past week prior to admission. History of very brittle insulin dependent diabetes mellitus, diabetic neuropathy,diabetic retinopathy,nephropathy,end stage renal disease, on hemodialysis 3x a week, left arm AV shunt /fistula, hypertension, hyperlipidemia,TIA, coronary artery disease with stents,resistant to Plavix, on Brilinta. severe peripheral vascular disease, post right below knee amputation, left middle finger amputation,TIA, PPM for sick sinus syndrome. subdural hematoma due to fall, COPD, pancreatitis. No evidence of myocardial infarction. Troponin negative, Positive for C-difficile.Right BKA stump positive for VRE. B lood culture from 01/17 positive for serratia, repeat blood culture done 01/18/18, so far no growth after [address] of head done to rule out bleeding. CT showed no hemorrhage/bleeding.Refusing CPAP/BIPAP at night. Had debridement of right BKA stump with wound VAC. status post [employer] for hypotension and bleeding from stump, # units of PRBC given.Transferred to ICU. Post right thoracenthesis for pleural effusion (1200 cc). Plan: Post upper extremity angiogram yesterday,severe disease of the right hand involving the metacarpal arteries and digital arteries, severe involving 5th digit. Proximal arteries of the right upper extremity widely open. No distress, denies shortness of breath Blood pressure stable Heart rate stable Cardiac status stable Nutritional support On ASA 81 mg daily,Lipitor 80 mg daily, Tricor 145 mg daily,Lopressor 25 mg BID, [place] 5 mg TID, Synthroid 50 mcg daily,Heparin 5000 units SC every 12 hours Will continue to hold Brilinta Continue current treatment Continue current medications Continue IV antibiotics as per ID On contact isolation for VRE Physical therapy Chart reviewed Will follow up Plan and treatment discussed with Dr. Goodwin
[2018-02-03 07:45] LABS: ALB/GLOB RATIO 0.6 (1.1-1.8); ALBUMIN 2.2 g/dL (3.0-4.8); CALCIUM 7.5 mg/dL (8.4-10.5)
[2018-02-03] MEDS: Arformoterol 15 mcg/2 ml Inh Sol IH SCH ×2 (09:14→20:48)
[2018-02-03] MEDS: Budesonide 0.5 mg/2 ml Inhal Susp UD IH SCH ×2 (09:15→20:48)
[2018-02-03] MEDS: Insulin Reg-HIGH-Coverage SC SCH ×4 (09:40→22:40)
[2018-02-03] MEDS: Insulin Regular 1 UNITS/0.01 ML ML SC SCH ×3 (09:41→18:16)
[2018-02-03] MEDS: Levothyroxine 25 MCG TAB PO SCH (09:43)
[2018-02-03] MEDS ORDERED: DAPTOmycin 500 mg Inj (Cubicin) IV SCH (10:00)
--- NOTE | 2018-02-03 13:20 | CP.PCM.PN ---
Subjective - Date & Time of Evaluation Date of Evaluation: 02/03/18 Time of Evaluation: 10:25 - Subjective Subjective: No fevers, still feels weak. Objective - Vital Signs/Intake and Output Vital Signs (last 24 hours): Temp Pulse Resp BP Pulse Ox 97.8 F 88 17 98/52 L 97 02/02/18 17:30 02/02/18 17:30 02/02/18 17:30 02/02/18 17:30 02/02/18 17:30 Intake and Output: 02/02/18 02/02/18 06:59 18:59 Intake Total 360 Balance 360 - Medications Medications: Current Medications Acetaminophen (Tylenol 325mg Tab) 650 mg PO Q6H PRN PRN Reason: Pain, Mild (1-3) Albuterol/Ipratropium (Duoneb 3 Mg/0.5 Mg (3 Ml) Ud) 3 ml IH [id number] PRN PRN Reason: Shortness of Breath Last Admin: 01/27/18 13:07 Dose: 3 ml Arformoterol Tartrate (Brovana) 15 mcg IH [id number] [facility] Last Admin: 02/02/18 07:45 Dose: 15 mcg Aspirin (Ecotrin) 81 mg PO DAILY [facility] Last Admin: 02/02/18 11:07 Dose: 81 mg Atorvastatin Calcium (Lipitor) 80 mg PO HS [facility] Last Admin: 02/01/18 22:39 Dose: 80 mg Budesonide (Pulmicort Respules) 0.5 mg IH Q12H [facility] Last Admin: 02/02/18 07:46 Dose: 0.5 mg Duloxetine HCl (Cymbalta) 40 mg PO DAILY [facility] Last Admin: 02/02/18 11:07 Dose: 40 mg Famotidine (Pepcid) 20 mg PO HS [facility] Last Admin: 02/01/18 22:40 Dose: 20 mg Fenofibrate (Tricor) 145 mg PO DAILY [facility] Last Admin: 02/02/18 11:07 Dose: 145 mg Fluticasone Propionate (Flonase) 1 actuation NS DAILY PRN PRN Reason: Nasal congestion Guaifenesin (Mucinex La) 600 mg PO BID PRN PRN Reason: Cough Heparin Sodium (Porcine) (Heparin) 5,000 units SC Q12 [facility]; Protocol Last Admin: 01/26/18 15:40 Dose: Not Given Insulin Human Regular (Humulin R High) 0 units SC ACHS [facility]; Protocol Last Admin: 02/02/18 18:17 Dose: Not Given Insulin Human Regular (Humulin R) 5 units SC AC [facility] Last Admin: 02/02/18 18:17 Dose: Not Given Latanoprost (Xalatan Opht) 0 ml OU HS [facility] Last Admin: 02/01/18 22:40 Dose: 2.5 ml Levothyroxine Sodium (Synthroid) 50 mcg PO 0600 [facility] Last Admin: 02/02/18 05:42 Dose: 50 mcg Metoprolol Tartrate (Lopressor) 25 mg PO BID [facility] Last Admin: 02/02/18 18:17 Dose: Not Given Midodrine (Proamatine) 5 mg PO TID [facility] Last Admin: 02/02/18 15:39 Dose: 5 mg Ondansetron HCl (Zofran Inj) 4 mg IVP Q6H PRN PRN Reason: Nausea/Vomiting Last Admin: 01/31/18 09:27 Dose: 4 mg Sodium Chloride ([place] Nasal [place]) 0 ml NS Q2 PRN PRN Reason: nasal congestion. Zaleplon (Sonata) 5 mg PO HS [facility] Last Admin: 02/01/18 22:39 Dose: 5 mg - Labs Labs: 01/31/18 06:20 01/31/18 20:36 PT 18.7 sec (9.0-11.5) H 01/25/18 09:00 INR 1.77 01/23/18 08:50 APTT 33.8 Seconds (25.1-36.5) 01/23/18 08:50 - Constitutional Appears: Chronically Ill - Head Exam Head Exam: NORMAL INSPECTION - Respiratory Exam Respiratory Exam: Decreased Breath Sounds - Cardiovascular Exam Cardiovascular Exam: +S1, +S2 - GI/Abdominal Exam GI & Abdominal Exam: Soft. 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 diff. associated diarrhea ESRD on HD DM obesity CAD S/P PCI retinopathy history of pancreatitis Plan completed course of Merrem will continue Daptomycin for the VRE bacteremia - follow up 2D echo will continue to monitor clinically overall prognosis is poor
--- NOTE | 2018-02-03 16:53 | PN ---
DATE: 02/03/2018 SUBJECTIVE: The patient is 52 years old, seen and examined, lying in bed. Somewhat confused, sleepy, but answers appropriately. Eating fair. PHYSICAL EXAMINATION: VITAL SIGNS: He is afebrile, pulse 72, respirations 20, blood pressure 95/49. LUNGS: Bilateral fair airflow. No rhonchi or crackle. HEART: S1 and S2 audible. ABDOMEN: Soft, obese, nontender. No rebound. No guarding. NEUROLOGICAL: He is sleepy, but arousable. EXTREMITIES: He has status post BKA and he has infection to the left hand middle finger. LABORATORY EXAM: WBC 13.8, hemoglobin 8.3, hematocrit 25.9, platelet Of 78. Chemistry: Sodium 135, potassium 4.2, chloride 96, CO2 of 31, BUN 14, creatinine 2.2, blood sugar 127, total albumin 1.7. On 01/28/2018, he has VRE. His repeat cultures are negative. ASSESSMENT: 1. Vancomycin-resistant Enterococcus bacteremia. 2. End-stage renal disease, on hemodialysis. 3. History of Serratia bacteremia from the right stump cellulitis. 4. Fungemia secondary to peripherally inserted central catheter line. 5. Status post right foot cellulitis. 6. Insulin-dependent diabetes. 7. Coronary artery disease. 8. History of pancreatitis. PLAN: Currently, the patient is on meropenem. Currently, the patient is on daptomycin. He is getting nebulizer treatment. His blood sugar is being monitored. He is due for dialysis on Monday. Sanjay Castillo MD
--- NOTE | 2018-02-03 21:11 | PN ---
DATE: 02/03/2018 PULMONARY PROGRESS NOTE REFERRING PHYSICIAN: Gallo Potter MD SUBJECTIVE: He is lying in the bed, head at 35 degrees. Night was unremarkable. Feels much better, less confused today. No headache, no rhinitis. No chest pain. No abdominal pain. Has a dressing on the right BKA site. Right fifth digit is ischemic. OBJECTIVE: GENERAL: In no acute distress. VITAL SIGNS: Temp is 98, heart rate is 71, respiratory rate is 18, blood pressure 93/50, pulse ox 96% on nasal cannula. HEENT: Moist mucous membrane. Crowded airway. Mallampati score is 4. NECK: Supple. No JVD. LUNGS: Have fair airflow with few rhonchi. HEART: S1 and S2. ABDOMEN: Soft, nontender, no organomegaly. EXTREMITIES: Has a right leg BKA dressing on the wound. Right fifth digit ischemic. Third finger on the left hand been amputated. NEUROLOGICAL: Awake, alert, follows simple commands, still little confused. MEDICATIONS: He is on Brovana inhaled twice a day, duloxetine 40 mg daily, daptomycin 650 mg every 24 hours, albuterol/Atrovent nebulizer every 6 hours p.r.n., Ecotrin 81 mg daily, Flonase one spray to each nostril p.r.n., heparin 5000 units subcu every 12 hours, insulin coverage, atorvastatin 80 mg at bedtime, metoprolol tartrate 25 mg twice a day, Mucinex 600 mg twice a day p.r.n., Pepcid 20 mg at bedtime, midodrine 5 mg 3 times a day, Pulmicort inhaler twice a day, Sonata 5 mg at bedtime, Synthroid 50 mcg daily, TriCor 145 mg daily, Tylenol p.r.n., and Zofran p.r.n. LABORATORY DATA: Shows hemoglobin 8.3, hematocrit 25.9, WBC 13.8, platelet count is 78,000. Sodium 135, potassium 4.2, chloride 96, bicarbonate 31, BUN 14, creatinine 2.2, glucose is 86, calcium 7.5, phosphorus 3.8, magnesium 1.8, total bili 1.7. AST 237, ALT 49, alk phos is 164, albumin is 2.2. IMPRESSION AND PLAN: Status post hemorrhagic shock secondary to anemia secondary to bleed from the stump status post multiunit of blood transfusion, also requiring platelet transfusion, ended up with large pleural effusion requiring thoracentesis. Has cardiomyopathy, coronary artery disease, history of coronary stent, chronic lung disease, obstructive sleep apnea syndrome, diabetes, severe peripheral vascular disease, renal failure, dialysis dependent, has a right lower extremity below-knee amputation with nonhealing ulcer with wound infection as well as bacteremia. May have some metabolic encephalopathy. Pulmonary point of view, keep head at 45 degrees, encourage CPAP use, careful with sedation. Gastric prophylaxis. Deep venous thrombosis prophylaxis. Pressure ulcer precaution. Poor prognosis. Thank you, and we will follow with you Jarred Escalera MD
[2018-02-03] MEDS: Latanoprost 2.5 ml Opht Soln OU SCH (22:39)
[2018-02-04] MEDS: Levothyroxine 25 MCG TAB PO SCH (06:30)
--- NOTE | 2018-02-04 07:08 | CP.PCM.PN ---
Subjective - Date & Time of Evaluation Date of Evaluation: 02/04/18 Time of Evaluation: 06:45 - Subjective Subjective: Awake,No distress, Lying in bed, denies shortness of breath Reason for consultation and follow up: Cardiac evaluation of chest pain,follow up of coronary artery disease, History of PPM, admitted for diarrhea, infected right BKA stump with debridement and wound VAC, status post [employer]AIR for hypotension and bleeding from stump, post thoracenthesis for pleural effusion Seen and examined by me and Dr. Goodwin Objective - Vital Signs/Intake and Output Vital Signs (last 24 hours): Temp Pulse Resp BP Pulse Ox 97 F L 90 18 120/87 97 02/04/18 00:01 02/04/18 02:00 02/04/18 00:01 02/04/18 00:01 02/04/18 00:01 Intake and Output: 02/04/18 02/04/18 06:59 18:59 Intake Total 100 Balance 100 - Medications Medications: Current Medications Acetaminophen (Tylenol 325mg Tab) 650 mg PO Q6H PRN PRN Reason: Pain, Mild (1-3) Last Admin: 02/03/18 09:49 Dose: 650 mg Albuterol/Ipratropium (Duoneb 3 Mg/0.5 Mg (3 Ml) Ud) 3 ml IH [id number] PRN PRN Reason: Shortness of Breath Last Admin: 01/27/18 13:07 Dose: 3 ml Arformoterol Tartrate (Brovana) 15 mcg IH [id number] [facility] Last Admin: 02/03/18 20:48 Dose: 15 mcg Aspirin (Ecotrin) 81 mg PO DAILY [facility] Last Admin: 02/03/18 09:40 Dose: 81 mg Atorvastatin Calcium (Lipitor) 80 mg PO HS [facility] Last Admin: 02/03/18 22:38 Dose: 80 mg Budesonide (Pulmicort Respules) 0.5 mg IH Q12H [facility] Last Admin: 02/03/18 20:48 Dose: 0.5 mg Duloxetine HCl (Cymbalta) 40 mg PO DAILY [facility] Last Admin: 02/03/18 09:40 Dose: 40 mg Famotidine (Pepcid) 20 mg PO HS [facility] Last Admin: 02/03/18 22:38 Dose: 20 mg Fenofibrate (Tricor) 145 mg PO DAILY [facility] Last Admin: 02/03/18 09:40 Dose: 145 mg Fluticasone Propionate (Flonase) 1 actuation NS DAILY PRN PRN Reason: Nasal congestion Guaifenesin (Mucinex La) 600 mg PO BID PRN PRN Reason: Cough Heparin Sodium (Porcine) (Heparin) 5,000 units SC Q12 [facility]; Protocol Last Admin: 01/26/18 15:40 Dose: Not Given Daptomycin 650 mg/ Sodium (Chloride) 100 mls @ 200 mls/hr IV Q24H [facility] Stop: 02/08/18 10:01 Last Admin: 02/03/18 12:19 Dose: 200 mls/hr Insulin Human Regular (Humulin R High) 0 units SC ACHS [facility]; Protocol Last Admin: 02/03/18 22:40 Dose: Not Given Insulin Human Regular (Humulin R) 5 units SC AC [facility] Last Admin: 02/03/18 18:16 Dose: Not Given Latanoprost (Xalatan Opht) 0 ml OU HS [facility] Last Admin: 02/03/18 22:39 Dose: 2.5 ml Levothyroxine Sodium (Synthroid) 50 mcg PO 0600 [facility] Last Admin: 02/04/18 06:30 Dose: 50 mcg Metoprolol Tartrate (Lopressor) 25 mg PO BID [facility] Last Admin: 02/03/18 18:38 Dose: Not Given Midodrine (Proamatine) 5 mg PO TID [facility] Last Admin: 02/03/18 18:05 Dose: 5 mg Ondansetron HCl (Zofran Inj) 4 mg IVP Q6H PRN PRN Reason: Nausea/Vomiting Last Admin: 02/02/18 20:16 Dose: 4 mg Sodium Chloride ([place] Nasal [place]) 0 ml NS Q2 PRN PRN Reason: nasal congestion. Zaleplon (Sonata) 5 mg PO HS [facility] Last Admin: 02/03/18 22:38 Dose: 5 mg - Labs Labs: 02/03/18 07:00 02/03/18 07:00 PT 18.7 sec (9.0-11.5) H 01/25/18 09:00 INR 1.77 01/23/18 08:50 APTT 33.8 Seconds (25.1-36.5) 01/23/18 08:50 - Constitutional Appears: Non-toxic, No Acute Distress - Head Exam Head Exam: NORMAL INSPECTION, NORMOCEPHALIC - ENT Exam ENT Exam: Mucous Membranes Moist, Normal Exam - Respiratory Exam Respiratory Exam: Clear to Ausculation Bilateral, NORMAL BREATHING PATTERN - Cardiovascular Exam Cardiovascular Exam: REGULAR RHYTHM, +S1, +S2 Additional comments: Telemetry NSR 70's PPM - GI/Abdominal Exam GI & Abdominal Exam: Soft, Normal Bowel Sounds - Extremities Exam Extremities Exam: Full ROM Additional comments: right BKA with stump pearl wrapped left middle finger amputation with kerlex Left AV shunt positive bruit right 5th finger (pinky) necrotic hand edema 2+ - Neurological Exam Neurological Exam: Alert, Awake - Psychiatric Exam Psychiatric exam: Normal Affect, Normal Mood - Skin Skin Exam: Dry, Normal Color, Warm Assessment and Plan - Assessment and Plan (Free Text) Assessment: A 52 year old male obese who came in to the ER due to diarrhea for the past week prior to admission. History of very brittle insulin dependent diabetes mellitus, diabetic neuropathy,diabetic retinopathy,nephropathy,end stage renal disease, on hemodialysis 3x a week, left arm AV shunt /fistula, hypertension, hyperlipidemia,TIA, coronary artery disease with stents,resistant to Plavix, on Brilinta. severe peripheral vascular disease, post right below knee amputation, left middle finger amputation,TIA, PPM for sick sinus syndrome. subdural hematoma due to fall, COPD, pancreatitis. No evidence of myocardial infarction. Troponin negative, Positive for C-difficile.Right BKA stump positive for VRE. Blood culture from 01/17 positive for serratia, repeat blood culture done 01/18/18, so far no growth after [address] of head done to rule out bleeding. CT showed no hemorrhage/bleeding.Refusing CPAP/BIPAP at night. Had debridement of right BKA stump with wound VAC. status post [employer] CHAIR for hypotension and bleeding from stump, # units of PRBC given.Transferred to ICU. Post right thoracenthesis for pleural effusion (1200 cc). Transferred to telemetry.Post upper extremity angiogram yesterday,severe disease of the right hand involving the metacarpal arteries and digital arteries, severe involving 5th digit. Proximal arteries of the right upper extremity widely open. Plan: Feels cold, extra blanket provided No distress, denies shortness of breath Blood pressure stable Heart rate stable Cardiac status stable On contact isolation for VRE Nutritional support On ASA 81 mg daily,Lipitor 80 mg daily, Tricor 145 mg daily,Lopressor 25 mg BID, Midorine 5 mg TID, Synthroid 50 mcg daily,Heparin 5000 units SC every 12 hours Will continue to hold Brilinta Continue current treatment Continue current medications Continue IV antibiotics as per ID Physical therapy Chart reviewed Will follow up Plan and treatment discussed with Dr. Goodwin
[2018-02-04] MEDS: Albuterol-Ipratrop 3 mg / 0.5 (3 ml) UD IH PRN (07:35)
[2018-02-04] MEDS: Budesonide 0.5 mg/2 ml Inhal Susp UD IH SCH ×2 (07:35→20:21)
[2018-02-04] MEDS: Arformoterol 15 mcg/2 ml Inh Sol IH SCH ×2 (07:35→20:21)
[2018-02-04] MEDS: Insulin Reg-HIGH-Coverage SC SCH ×4 (09:39→21:39)
[2018-02-04] MEDS: Insulin Regular 1 UNITS/0.01 ML ML SC SCH ×3 (09:46→17:21)
--- NOTE | 2018-02-04 11:58 | CP.PCM.PN ---
Subjective - Date & Time of Evaluation Date of Evaluation: 02/04/18 Time of Evaluation: 11:00 - Subjective Subjective: No fevers, feels weak but a little better compared to yesterday. Objective - Vital Signs/Intake and Output Vital Signs (last 24 hours): Temp Pulse Resp BP Pulse Ox 98 F 72 18 146/53 L 97 02/03/18 12:00 02/03/18 12:00 02/03/18 12:00 02/03/18 12:00 02/02/18 17:30 Intake and Output: 02/03/18 02/03/18 06:59 18:59 Intake Total 60 Balance 60 - Medications Medications: Current Medications Acetaminophen (Tylenol 325mg Tab) 650 mg PO Q6H PRN PRN Reason: Pain, Mild (1-3) Last Admin: 02/03/18 09:49 Dose: 650 mg Albuterol/Ipratropium (Duoneb 3 Mg/0.5 Mg (3 Ml) Ud) 3 ml IH [id number] PRN PRN Reason: Shortness of Breath Last Admin: 01/27/18 13:07 Dose: 3 ml Arformoterol Tartrate (Brovana) 15 mcg IH [id number] [facility] Last Admin: 02/03/18 09:14 Dose: 15 mcg Aspirin (Ecotrin) 81 mg PO DAILY [facility] Last Admin: 02/03/18 09:40 Dose: 81 mg Atorvastatin Calcium (Lipitor) 80 mg PO HS [facility] Last Admin: 02/03/18 05:36 Dose: Not Given Budesonide (Pulmicort Respules) 0.5 mg IH Q12H [facility] Last Admin: 02/03/18 09:15 Dose: 0.5 mg Duloxetine HCl (Cymbalta) 40 mg PO DAILY [facility] Last Admin: 02/03/18 09:40 Dose: 40 mg Famotidine (Pepcid) 20 mg PO HS [facility] Last Admin: 02/01/18 22:40 Dose: 20 mg Fenofibrate (Tricor) 145 mg PO DAILY [facility] Last Admin: 02/03/18 09:40 Dose: 145 mg Fluticasone Propionate (Flonase) 1 actuation NS DAILY PRN PRN Reason: Nasal congestion Guaifenesin (Mucinex La) 600 mg PO BID PRN PRN Reason: Cough Heparin Sodium (Porcine) (Heparin) 5,000 units SC Q12 [facility]; Protocol Last Admin: 01/26/18 15:40 Dose: Not Given Daptomycin 650 mg/ Sodium (Chloride) 100 mls @ 200 mls/hr IV Q24H [facility] Stop: 02/08/18 10:01 Last Admin: 02/03/18 12:19 Dose: 200 mls/hr Insulin Human Regular (Humulin R High) 0 units SC ACHS [facility]; Protocol Last Admin: 02/03/18 09:40 Dose: Not Given Insulin Human Regular (Humulin R) 5 units SC AC [facility] Last Admin: 02/03/18 12:19 Dose: Not Given Latanoprost (Xalatan Opht) 0 ml OU HS [facility] Last Admin: 02/02/18 23:34 Dose: Not Given Levothyroxine Sodium (Synthroid) 50 mcg PO 0600 [facility] Last Admin: 02/03/18 09:43 Dose: 50 mcg Metoprolol Tartrate (Lopressor) 25 mg PO BID [facility] Last Admin: 02/03/18 09:47 Dose: 25 mg Midodrine (Proamatine) 5 mg PO TID [facility] Last Admin: 02/03/18 09:40 Dose: 5 mg Ondansetron HCl (Zofran Inj) 4 mg IVP Q6H PRN PRN Reason: Nausea/Vomiting Last Admin: 02/02/18 20:16 Dose: 4 mg Sodium Chloride ([place] Nasal [place]) 0 ml NS Q2 PRN PRN Reason: nasal congestion. Zaleplon (Sonata) 5 mg PO HS [facility] Last Admin: 02/01/18 22:39 Dose: 5 mg - Labs Labs: 02/03/18 07:00 02/03/18 07:00 PT 18.7 sec (9.0-11.5) H 01/25/18 09:00 INR 1.77 01/23/18 08:50 APTT 33.8 Seconds (25.1-36.5) 01/23/18 08:50 - Constitutional Appears: Chronically Ill - Head Exam Head Exam: NORMAL INSPECTION - Respiratory Exam Respiratory Exam: Decreased Breath Sounds - Cardiovascular Exam Cardiovascular Exam: +S1, +S2 - GI/Abdominal Exam GI & Abdominal Exam: Soft. 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 diff. associated diarrhea ESRD on HD DM obesity CAD S/P PCI retinopathy history of pancreatitis Plan completed course of Merrem will continue Daptomycin for the VRE bacteremia - follow up 2D echo; repeat blood cx from 01/30 are negative will continue to monitor clinically overall prognosis is poor
--- NOTE | 2018-02-04 17:27 | PN ---
DATE: 02/04/2018 SUBJECTIVE: The patient is 52 years old, seen and examined, awake and alert, somewhat confused, lethargic at times, poor oral intake. PHYSICAL EXAMINATION VITAL SIGNS: He is afebrile, pulse 70, respirations 18, blood pressure 140/60. LUNGS: Bilateral fair airflow. No rhonchi or crackles. HEART: S1, S2 audible. ABDOMEN: Soft, obese, nontender. No rebound, no guarding. NEUROLOGIC: The patient is lethargic, but responds appropriately. His right hand little finger has gangrenous, right stump infection. His left hand little finger is also with osteomyelitis and infected. LABORATORY DATA: WBC 13.8, hemoglobin 8.3, hematocrit 35.9, platelets of 78,000. Chemistry; blood sugar is 139. ASSESSMENT: 1. Vancomycin-resistant bacteremia. On culture of 01/28/2018, Serratia wound infection. 2. End-stage renal disease, on hemodialysis. 3. Hypertension. 4. Severe peripheral vascular disease. 5. Resolving bilateral pneumonia. 6. Insulin-dependent diabetes. PLAN: The patient is due for dialysis tomorrow. He is on nebulizer treatment. He is on daptomycin. Continue DVT prophylaxis. Finished his course of meropenem. Overall, prognosis is poor. We will follow up. Sanjay Castillo MD (Delete this signature block when dictator is a preceptor.) cc: MD Mindi (Delete if not dictated.)
[2018-02-04] MEDS: Latanoprost 2.5 ml Opht Soln OU SCH (22:00)
--- NOTE | 2018-02-05 06:45 | CP.PCM.PN ---
Subjective - Date & Time of Evaluation Date of Evaluation: 02/05/18 Time of Evaluation: 06:25 - Subjective Subjective: No distress, Lying in bed, denies shortness of breath,awake Reason for consultation and follow up: Cardiac evaluation of chest pain,follow up of coronary artery disease, History of PPM, admitted for diarrhea, infected right BKA stump with debridement and wound VAC, status post [employer] for hypotension and bleeding from stump, post thoracenthesis for pleural effusion Seen and examined by me and Dr. Erickson Objective - Vital Signs/Intake and Output Vital Signs (last 24 hours): Temp Pulse Resp BP Pulse Ox 98.2 F 78 18 110/66 98 02/05/18 05:50 02/05/18 05:50 02/05/18 05:50 02/05/18 05:50 02/05/18 05:50 Intake and Output: 02/04/18 02/05/18 18:59 06:59 Intake Total 920 Output Total 3200 Balance -2280 - Medications Medications: Current Medications Acetaminophen (Tylenol 325mg Tab) 650 mg PO Q6H PRN PRN Reason: Pain, Mild (1-3) Last Admin: 02/04/18 09:38 Dose: 650 mg Albuterol/Ipratropium (Duoneb 3 Mg/0.5 Mg (3 Ml) Ud) 3 ml IH [id number] PRN PRN Reason: Shortness of Breath Last Admin: 02/04/18 07:35 Dose: 3 ml Arformoterol Tartrate (Brovana) 15 mcg IH [id number] [facility] Last Admin: 02/04/18 20:21 Dose: 15 mcg Aspirin (Ecotrin) 81 mg PO DAILY [facility] Last Admin: 02/04/18 09:38 Dose: 81 mg Atorvastatin Calcium (Lipitor) 80 mg PO HS [facility] Last Admin: 02/04/18 22:08 Dose: 80 mg Budesonide (Pulmicort Respules) 0.5 mg IH Q12H [facility] Last Admin: 02/04/18 20:21 Dose: 0.5 mg Duloxetine HCl (Cymbalta) 40 mg PO DAILY [facility] Last Admin: 02/04/18 09:38 Dose: 40 mg Famotidine (Pepcid) 20 mg PO HS [facility] Last Admin: 02/04/18 22:08 Dose: 20 mg Fenofibrate (Tricor) 145 mg PO DAILY [facility] Last Admin: 02/04/18 09:38 Dose: 145 mg Fluticasone Propionate (Flonase) 1 actuation NS DAILY PRN PRN Reason: Nasal congestion Guaifenesin (Mucinex La) 600 mg PO BID PRN PRN Reason: Cough Heparin Sodium (Porcine) (Heparin) 5,000 units SC Q12 [facility]; Protocol Last Admin: 01/26/18 15:40 Dose: Not Given Daptomycin 650 mg/ Sodium (Chloride) 100 mls @ 200 mls/hr IV Q24H [facility] Stop: 02/08/18 10:01 Last Admin: 02/04/18 11:34 Dose: 200 mls/hr Insulin Human Regular (Humulin R High) 0 units SC ACHS [facility]; Protocol Last Admin: 02/04/18 21:39 Dose: Not Given Insulin Human Regular (Humulin R) 5 units SC AC [facility] Last Admin: 02/04/18 17:21 Dose: Not Given Latanoprost (Xalatan Opht) 0 ml OU HS [facility] Last Admin: 02/04/18 22:00 Dose: Not Given Levothyroxine Sodium (Synthroid) 50 mcg PO 0600 [facility] Last Admin: 02/04/18 06:30 Dose: 50 mcg Metoprolol Tartrate (Lopressor) 25 mg PO BID [facility] Last Admin: 02/04/18 17:59 Dose: 25 mg Midodrine (Proamatine) 5 mg PO TID [facility] Last Admin: 02/04/18 18:00 Dose: Not Given Ondansetron HCl (Zofran Inj) 4 mg IVP Q6H PRN PRN Reason: Nausea/Vomiting Last Admin: 02/02/18 20:16 Dose: 4 mg Sodium Chloride ([place] Nasal [place]) 0 ml NS Q2 PRN PRN Reason: nasal congestion. Zaleplon (Sonata) 5 mg PO HS [facility] Last Admin: 02/04/18 22:08 Dose: 5 mg - Labs Labs: 02/03/18 07:00 02/03/18 07:00 PT 18.7 sec (9.0-11.5) H 01/25/18 09:00 INR 1.77 01/23/18 08:50 APTT 33.8 Seconds (25.1-36.5) 01/23/18 08:50 - Constitutional Appears: Non-toxic, No Acute Distress - Head Exam Head Exam: NORMAL INSPECTION, NORMOCEPHALIC - Eye Exam Eye Exam: Normal appearance - ENT Exam ENT Exam: Mucous Membranes Dry - Respiratory Exam Respiratory Exam: Decreased Breath Sounds, NORMAL BREATHING PATTERN - Cardiovascular Exam Cardiovascular Exam: +S1, +S2 Additional comments: PPM - GI/Abdominal Exam GI & Abdominal Exam: Soft, Normal Bowel Sounds - Exam Additional comments: ESRD Hemodialysis 3x a week - Extremities Exam Additional comments: AV shunt left arm positive bruit Right BKA with stump covered with pearl wrapped left middle finger amputation 2+ hand edema right fifth digit necrotic - Neurological Exam Neurological Exam: Alert, Awake, Oriented x3 - Psychiatric Exam Psychiatric exam: Normal Affect, Normal Mood - Skin Skin Exam: Dry, Normal Color, Warm Assessment and Plan - Assessment and Plan (Free Text) Assessment: A 52 year old male obese who came in to the ER due to diarrhea for the past week prior to admission. History of very brittle insulin dependent diabetes mellitus, diabetic neuropathy,diabetic retinopathy,nephropathy,end stage renal disease, on hemodialysis 3x a week, left arm AV shunt /fistula, hypertension, hyperlipidemia,TIA, coronary artery disease with stents,resistant to Plavix, on Brilinta. severe peripheral vascular disease, post right below knee amputation, left middle finger amputation,TIA, PPM for sick sinus syndrome. subdural hematoma due to fall, COPD, pancreatitis. No evidence of myocardial infarction. Troponin negative, Positive for C-difficile.Right BKA stump positive for VRE. Blood culture from 01/17 positive for serratia, repeat blood culture done 01/18/18, so far no growth after [address] of head done to rule out bleeding. CT showed no hemorrhage/bleeding.Refusing CPAP/BIPAP at night. Had debridement of right BKA stump with wound VAC. status post [employer] for hypotension and bleeding from stump, # units of PRBC given.Transferred to ICU. Post right thoracenthesis for pleural effusion (1200 cc). Transferred to telemetry.Post upper extremity angiogram yesterday,severe disease of the right hand involving the metacarpal arteries and digital arteries, severe involving 5th digit. Proximal arteries of the right upper extremity widely open. On contact isolation for VRE Plan: On contact isolation for VRE Continue IV antibiotics as per ID No distress, denies shortness of breath Blood pressure stable Heart rate stable Cardiac status stable Nutritional support Glucose controlled,no hypoglycemia On ASA 81 mg daily,Lipitor 80 mg daily, Tricor 145 mg daily,Lopressor 25 mg BID, Midorine 5 mg TID, Synthroid 50 mcg daily,Heparin 5000 units SC every 12 hours Continue current treatment Continue current medications Physical therapy Chart reviewed Will follow up Plan and treatment discussed with Dr. Erickson
[2018-02-05] MEDS: Levothyroxine 25 MCG TAB PO SCH (06:59)
--- NOTE | 2018-02-05 07:36 | PN ---
DATE: 02/04/2018 REFERRING PHYSICIAN: Gallo Potter MD SUBJECTIVE: He is seen lying in the bed. Mother is at bedside. Night was unremarkable. More clear today mentally. No headache, no rhinitis. No chest pain. No nausea, no vomiting. There are generalized aches and pains. OBJECTIVE: GENERAL: No acute distress. VITAL SIGNS: Temperature , heart rate is 78, respiratory rate is 18, blood pressure 140/60, pulse oximetry 96% on 2 liters nasal cannula. HEENT: Moist mucous membranes. Crowded airway. Mallampati score is 4. NECK: Supple. No JVD. LUNGS: Have fair airflow with rhonchi. HEART: S1, S2. ABDOMEN: Soft, nontender. No organomegaly. EXTREMITIES: He has a dressing with the right BKA. The right hand fifth digit is ischemic. He has a dressing on the left middle finger amputated site. NEUROLOGIC: Awake, alert. Follows simple commands. MEDICATIONS: He is on Brovana inhaled twice a day, Cymbalta 40 mg daily, daptomycin 650 mg daily, albuterol/Atrovent nebulizer every 6 hours p.r.n., Ecotrin 81 mg daily, Flonase one spray to each nostril p.r.n., heparin 5000 units subcu every 12 hours, insulin coverage, Lipitor 80 mg at bedtime, metoprolol tartrate 25 mg twice a day, Mucinex LA 600 mg twice a day p.r.n., nasal saline every 2 hours p.r.n., Pepcid 20 mg at bedtime, midodrine 5 mg three times a day, Pulmicort inhaled twice a day, Sonata 5 mg at bedtime, Synthroid 50 mcg daily, TriCor 145 mg daily, Tylenol on p.r.n. basis, Zofran on p.r.n. basis. LABORATORY DATA: Reviewed. Blood sugar this morning is 182. Repeat blood culture, there is no growth. Pleural fluid, there is no growth after 3 days. IMPRESSION AND PLAN: Resolving bacteremia site, probably was a right below-knee amputation wound; chronic obstructive lung disease; obstructive sleep apnea syndrome; coronary artery disease; cardiac arrhythmia, requiring pacemaker; renal failure, dialysis-dependent; diabetes; severe peripheral vascular disease, status post right below-knee amputation; right hand fifth digit ischemia; left hand third digit ischemia, requiring amputation. Being followed by Surgical Team, Nephrology, Infectious Diseases. Also has probably metabolic encephalopathy which is slowly improving. Spoke to the patient's family at bedside. All of their questions answered and continue to encourage continuous positive airway pressure while sleeping, keep head at 45 degrees. Bronchodilator, pain management. Sleep apnea precaution. Gastric prophylaxis, deep venous thrombosis prophylaxis. May benefit from physical therapy to get him out of bed to chair . Thank you, and we will follow with you. Jarred Escalera MD
[2018-02-05] MEDS: Arformoterol 15 mcg/2 ml Inh Sol IH SCH ×2 (07:45→20:36)
[2018-02-05] MEDS: Budesonide 0.5 mg/2 ml Inhal Susp UD IH SCH ×2 (07:45→20:37)
--- NOTE | 2018-02-05 08:11 | PN ---
DATE: 01/28/2018 LOCATION: The patient is in room 268, bed 2. A detailed note has been written by Karlie Moreau. I reviewed and I saw the patient with her, and I reviewed the chart and we will continue present therapy. We will review the report of upper extremity angiogram done yesterday. We will continue medication as mentioned and we will follow up closely. Jarred Goodwin MD
--- NOTE | 2018-02-05 08:16 | PN ---
DATE: 02/04/2018 LOCATION: Patient is in room 268, bed 2. Patient is a known case of coronary artery disease, renal failure, peripheral vascular disease status post amputation of left leg below-knee x2, had massive bleeding from the stump of the amputation site and that is why Brilinta is on hold. Patient has gangrene of the small digit of the right hand, for which angiography of the right arm showed that major vessels of the arm are opened but small vessels, which involve the metacarpal arteries and digital arteries, showed severe disease and also severe disease involving the fifth digit. Proximal artery of the right arm is widely patent. PLAN: We will continue to hold Brilinta since patient had massive bleeding from the stump site of the amputation of the left lower leg, below-knee. Patient is a known care of coronary artery disease, history of stent insertion. Clinically, cardiac status is stable. I will continue present therapy and continue to hold Brilinta. Continue antibiotic as per ID and physical therapy. We will follow with you. Jarred Goodwin MD
[2018-02-05] MEDS: Insulin Reg-HIGH-Coverage SC SCH ×2 (08:54→17:30)
[2018-02-05] MEDS: Insulin Regular 1 UNITS/0.01 ML ML SC SCH ×2 (08:56→17:29)
[2018-02-05 12:24] LABS: BASO # 0.02 K/mm3 (0.0-2.0); BASO % 0.2 % (0.0-3.0); EOS % 0.2 % (1.5-5.0); GRAN # 7.9 (1.4-6.5); HEMOGLOBIN 8.5 g/dL (14.0-18.0); LYMPH # 1.2 (1.2-3.4); LYMPH % 11.7 % (22.0-35.0); MEAN CORPUSCULAR HEMOGLOBIN 31.7 pg (25.0-35.0); MEAN CORPUSCULAR HGB CONC 32.7 g/dl (31.0-37.0); MEAN PLATELET VOLUME 11.1 fl (7.0-11.0); MONO % 9.9 % (1.0-6.0); RBC 2.68 10^6/uL (3.5-6.1); RED CELL DISTRIBUTION WIDTH 20.2 % (11.5-14.5); WHITE BLOOD COUNT 10.1 10^3/uL (4.5-11.0)
[2018-02-05 12:41] LABS: ALB/GLOB RATIO 0.6 (1.1-1.8); CALCIUM 7.6 mg/dL (8.4-10.5)
--- NOTE | 2018-02-05 13:23 | CP.PCM.PN ---
Subjective - Date & Time of Evaluation Date of Evaluation: 02/05/18 Time of Evaluation: 10:40 - Subjective Subjective: Still feels weak, no fevers, no increased pain in left hand and right leg stump. Objective - Vital Signs/Intake and Output Vital Signs (last 24 hours): Temp Pulse Resp BP Pulse Ox 97.4 F L 91 H 19 98/58 L 96 02/04/18 06:00 02/04/18 09:46 02/04/18 06:00 02/04/18 09:46 02/04/18 06:00 Intake and Output: 02/04/18 02/04/18 06:59 18:59 Intake Total 200 Balance 200 - Medications Medications: Current Medications Acetaminophen (Tylenol 325mg Tab) 650 mg PO Q6H PRN PRN Reason: Pain, Mild (1-3) Last Admin: 02/04/18 09:38 Dose: 650 mg Albuterol/Ipratropium (Duoneb 3 Mg/0.5 Mg (3 Ml) Ud) 3 ml IH [id number] PRN PRN Reason: Shortness of Breath Last Admin: 02/04/18 07:35 Dose: 3 ml Arformoterol Tartrate (Brovana) 15 mcg IH [id number] [facility] Last Admin: 02/04/18 07:35 Dose: 15 mcg Aspirin (Ecotrin) 81 mg PO DAILY [facility] Last Admin: 02/04/18 09:38 Dose: 81 mg Atorvastatin Calcium (Lipitor) 80 mg PO HS [facility] Last Admin: 02/03/18 22:38 Dose: 80 mg Budesonide (Pulmicort Respules) 0.5 mg IH Q12H [facility] Last Admin: 02/04/18 07:35 Dose: 0.5 mg Duloxetine HCl (Cymbalta) 40 mg PO DAILY [facility] Last Admin: 02/04/18 09:38 Dose: 40 mg Famotidine (Pepcid) 20 mg PO HS [facility] Last Admin: 02/03/18 22:38 Dose: 20 mg Fenofibrate (Tricor) 145 mg PO DAILY [facility] Last Admin: 02/04/18 09:38 Dose: 145 mg Fluticasone Propionate (Flonase) 1 actuation NS DAILY PRN PRN Reason: Nasal congestion Guaifenesin (Mucinex La) 600 mg PO BID PRN PRN Reason: Cough Heparin Sodium (Porcine) (Heparin) 5,000 units SC Q12 [facility]; Protocol Last Admin: 01/26/18 15:40 Dose: Not Given Daptomycin 650 mg/ Sodium (Chloride) 100 mls @ 200 mls/hr IV Q24H [facility] Stop: 02/08/18 10:01 Last Admin: 02/04/18 11:34 Dose: 200 mls/hr Insulin Human Regular (Humulin R High) 0 units SC ACHS [facility]; Protocol Last Admin: 02/04/18 09:39 Dose: Not Given Insulin Human Regular (Humulin R) 5 units SC AC [facility] Last Admin: 02/04/18 09:46 Dose: Not Given Latanoprost (Xalatan Opht) 0 ml OU HS [facility] Last Admin: 02/03/18 22:39 Dose: 2.5 ml Levothyroxine Sodium (Synthroid) 50 mcg PO 0600 [facility] Last Admin: 02/04/18 06:30 Dose: 50 mcg Metoprolol Tartrate (Lopressor) 25 mg PO BID [facility] Last Admin: 02/04/18 09:46 Dose: Not Given Midodrine (Proamatine) 5 mg PO TID [facility] Last Admin: 02/04/18 09:38 Dose: 5 mg Ondansetron HCl (Zofran Inj) 4 mg IVP Q6H PRN PRN Reason: Nausea/Vomiting Last Admin: 02/02/18 20:16 Dose: 4 mg Sodium Chloride ([place] Nasal [place]) 0 ml NS Q2 PRN PRN Reason: nasal congestion. Zaleplon (Sonata) 5 mg PO HS [facility] Last Admin: 02/03/18 22:38 Dose: 5 mg - Labs Labs: 02/03/18 07:00 02/03/18 07:00 PT 18.7 sec (9.0-11.5) H 01/25/18 09:00 INR 1.77 01/23/18 08:50 APTT 33.8 Seconds (25.1-36.5) 01/23/18 08:50 - Constitutional Appears: Chronically Ill - Head Exam Head Exam: NORMAL INSPECTION - Respiratory Exam Respiratory Exam: Decreased Breath Sounds - Cardiovascular Exam Cardiovascular Exam: +S1, +S2 - GI/Abdominal Exam GI & Abdominal Exam: Soft. 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 diff. associated diarrhea ESRD on HD DM obesity CAD S/P PCI retinopathy history of pancreatitis Plan completed course of Merrem will continue Daptomycin for the VRE bacteremia - follow up 2D echo; repeat blood cx from 01/30 are negative will continue to monitor clinically overall prognosis is poor
--- NOTE | 2018-02-05 14:26 | CP.PCM.PN ---
<Jose Huertas - Last Filed: 02/05/18 14:20> Subjective - Date & Time of Evaluation Date of Evaluation: 02/05/18 Time of Evaluation: 07:00 - Subjective Subjective: Progress Note for Dr. Potter Service Patient seen and examined at bedside. No acute issues reported as per nursing, but reports patient not eating overnight despite encouragement. This AM, patient confused on exam, thinking he is at home and asking for someone to call his mother "upstairs." Re-oriented to location and day. Further intermittent episodes of confusion this AM as per nursing. Receiving breathing tx at time of exam this AM, but still diffusely wheezing in all buck. Objective - Vital Signs/Intake and Output Vital Signs (last 24 hours): Temp Pulse Resp BP Pulse Ox 98.2 F 85 18 110/56 L 98 02/05/18 05:50 02/05/18 09:57 02/05/18 05:50 02/05/18 09:57 02/05/18 05:50 Intake and Output: 02/05/18 02/05/18 06:59 18:59 Intake Total 920 Output Total 3200 Balance -2280 - Medications Medications: Current Medications Acetaminophen (Tylenol 325mg Tab) 650 mg PO Q6H PRN PRN Reason: Pain, Mild (1-3) Last Admin: 02/04/18 09:38 Dose: 650 mg Albuterol/Ipratropium (Duoneb 3 Mg/0.5 Mg (3 Ml) Ud) 3 ml IH [id number] PRN PRN Reason: Shortness of Breath Last Admin: 02/04/18 07:35 Dose: 3 ml Arformoterol Tartrate (Brovana) 15 mcg IH [id number] [facility] Last Admin: 02/05/18 07:45 Dose: 15 mcg Aspirin (Ecotrin) 81 mg PO DAILY [facility] Last Admin: 02/05/18 09:57 Dose: 81 mg Atorvastatin Calcium (Lipitor) 80 mg PO HS [facility] Last Admin: 02/04/18 22:08 Dose: 80 mg Budesonide (Pulmicort Respules) 0.5 mg IH Q12H [facility] Last Admin: 02/05/18 07:45 Dose: 0.5 mg Duloxetine HCl (Cymbalta) 40 mg PO DAILY [facility] Last Admin: 11/19/18 09:57 Dose: 40 mg Famotidine (Pepcid) 20 mg PO HS [facility] Last Admin: 02/04/18 22:08 Dose: 20 mg Fenofibrate (Tricor) 145 mg PO DAILY [facility] Last Admin: 02/05/18 09:57 Dose: 145 mg Fluticasone Propionate (Flonase) 1 actuation NS DAILY PRN PRN Reason: Nasal congestion Guaifenesin (Mucinex La) 600 mg PO BID PRN PRN Reason: Cough Heparin Sodium (Porcine) (Heparin) 5,000 units SC Q12 [facility]; Protocol Last Admin: 01/26/18 15:40 Dose: Not Given Daptomycin 650 mg/ Sodium (Chloride) 100 mls @ 200 mls/hr IV Q24H [facility] Stop: 02/08/18 10:01 Last Admin: 02/04/18 11:34 Dose: 200 mls/hr Insulin Human Regular (Humulin R High) 0 units SC ACHS [facility]; Protocol Last Admin: 02/05/18 08:54 Dose: 2 units Insulin Human Regular (Humulin R) 5 units SC AC [facility] Last Admin: 02/05/18 08:56 Dose: 5 units Latanoprost (Xalatan Opht) 0 ml OU HS [facility] Last Admin: 02/04/18 22:00 Dose: Not Given Levothyroxine Sodium (Synthroid) 50 mcg PO 0600 [facility] Last Admin: 02/05/18 06:59 Dose: 50 mcg Metoprolol Tartrate (Lopressor) 25 mg PO BID [facility] Last Admin: 02/05/18 09:57 Dose: 25 mg Midodrine (Proamatine) 5 mg PO TID [facility] Last Admin: 02/05/18 09:57 Dose: 5 mg Ondansetron HCl (Zofran Inj) 4 mg IVP Q6H PRN PRN Reason: Nausea/Vomiting Last Admin: 02/02/18 20:16 Dose: 4 mg Sodium Chloride ([place] Nasal [place]) 0 ml NS Q2 PRN PRN Reason: nasal congestion. Zaleplon (Sonata) 5 mg PO HS [facility] Last Admin: 02/04/18 22:08 Dose: 5 mg - Labs Labs: 02/05/18 12:00 02/05/18 12:00 PT 18.7 sec (9.0-11.5) H 01/25/18 09:00 INR 1.77 01/23/18 08:50 APTT 33.8 Seconds (25.1-36.5) 01/23/18 08:50 - Constitutional Appears: No Acute Distress, Confused, Chronically Ill - Head Exam Head Exam: ATRAUMATIC, NORMAL INSPECTION, NORMOCEPHALIC - Eye Exam Eye Exam: EOMI (tracking staff across room), Normal appearance. absent: Conjunctival injection, Scleral icterus Pupil Exam: absent: Irregular, Unequal - ENT Exam ENT Exam: Mucous Membranes Moist Additional comments: wearing venti-mask, getting breathing tx at time of exam - Neck Exam Neck Exam: Full ROM. absent: Lymphadenopathy - Respiratory Exam Respiratory Exam: Decreased Breath Sounds (mild-moderate decreased breath sounds in all buck), Wheezes (diffuse inspiratory and expiratory wheezes, expiratory > inspiratory), NORMAL BREATHING PATTERN. absent: Accessory Muscle Use, Chest Wall Tenderness, Clear to Ausculation Bilateral, Rales, Rhonchi - Cardiovascular Exam Cardiovascular Exam: REGULAR RHYTHM, RRR, +S1, +S2, Murmur (systolic murmur most clearly heard at left 2nd-3rd intercostal spaces). absent: Bradycardia, Tachycardia, JVD - GI/Abdominal Exam GI & Abdominal Exam: Distended (mildly distended but still soft to palpation), Soft, Normal Bowel Sounds. absent: Firm, Rigid, Tenderness, Diminished Bowel Sounds, Hyperactive Bowel Sounds, Hypoactive Bowel Sounds - Extremities Exam Extremities Exam: Pedal Edema (+1 LLE pitting edema from foot to mid-ball, RLE BKA). absent: Calf Tenderness, Normal Inspection (RLE BKA) Additional comments: cool left hand to palpation with amputated L 3rd digit dry gangrenous right 5th digit - Neurological Exam Neurological Exam: Alert, Awake. absent: Oriented x3 (oriented to self but confused otherwise, thinks at home and cannot identify year) - Psychiatric Exam Psychiatric exam: absent: Agitated, Anxious Additional comments: Confused - Skin Additional comments: Other than as documented in extremities, dry/warm/intact Assessment and Plan - Assessment and Plan (Free Text) Assessment: This is a 52 yo M with PMH of ESRD on HD (//Mon), CAD with DE (4 months ago), right BKA, and left third digit amputation who presents with melena and diarrhea. S/p local debridement and wound vacuum placement of the right BKA, of right 5th digit 2/2 dry gangrene, and thoracentesis with 1.2L removed. 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 Pending angiogram to evaluate vasculature of right upper extremity as per IR. Pending placement (originally [facility]ACH, but now pt demanding to go home). Plan: 1) Sepsis -MDR VRE on 1 of 2 Blood Cx from 01/28/18, suspected source is R BKA stump but need to rule out ICD source as per ID Repeat Blood Cx on 01/30/18 negative -Wound care per surgery -Antibiotics per ID; currently on Daptomycin, completed course of Merrem Pending 2D Echo, if negative then ID recommends tx course of 2 more weeks 2) Hemmorhagic shock s/p transfusion of 3 units of PRBCS and 1 unit of leukocyte reduced platelets - RESOLVED -Off pressors and out of the ICU -continue Midodrine 3) of right pinky secondary to dry gangrene -Underwent Angiogram of RUE today 4) ESRD -Continue with dialysis T//Mon 5) CAD -Continue Brillinta, Aspirin, Metroprolol, and Atorvastatin -Dr. Erickson consulted, appreciate recommendations 6) DM II -Humulin 5 mg AC, Regular Insulin sliding scale -Fingersticks ACHS -Blood sugars goals are between 140-180 7) Upper respiratory symptoms -Cotninue PRN Mucinex, Flonase, and saline nasal spray -Duonebs q6h PRN for dyspnea -Continue q12 Brovana and Pulmicort 8) Hypothyroidism -continue home synthroid 9) Hyperlipidemia -continue home tricor 10) Glaucoma -Latanoprost drops OU 11) RENATA -Continue with noninvasive positive airway pressure nightly 12) Depressed mood in a patient with multiple, life-threatening comorbidities -Dr. Malin consulted, patient may benefit from cognitive behavioral therapy and medications, appreciate recommendations -Agree with Sonata and Duloxetine 13) Physical therapy in the setting of recent BKA -Physical therapy evaluation submitted 14) Placement issue -Patient denied multiple SARs as per CM/SW due to extensive co-morbidities, accepted to [facility]ACH but now pt demanding to go home -Currently maxed out on home services as per CM, gets 4 hrs/day weekdays and 5 hrs/day weekends with home health aide, and visit nurse 1x per week May be able to increase to home nurse 2x per week, no other additional home services available -He does demonstrate capacity at this time, despite some poor decision making, so cannot compel LTACH placement -Will continue to f/u with CM and SW pending discharge Dispo: Telemetry, pending final determination of placement FEN: Renal Diet Access: Peripheral IV Consults: Surgery, IR, Cardio, Pulm, ID, Palliative, Psych (signed off), GI Ppx: Pepcid for GI, SCD for DVT (previously on Heparin, but now on hold) Case was reviewed and discussed with attending physician, Dr. Potter <Gallo Potter S - Last Filed: 02/05/18 21:28> Objective - Vital Signs/Intake and Output Vital Signs (last 24 hours): Temp Pulse Resp BP Pulse Ox 97.4 F L 68 18 91/34 L 98 02/05/18 18:00 02/05/18 18:00 02/05/18 18:00 02/05/18 18:00 02/05/18 05:50 Intake and Output: 02/05/18 02/06/18 18:59 06:59 Intake Total 200 Output Total 3200 Balance -3000 - Medications Medications: Current Medications Acetaminophen (Tylenol 325mg Tab) 650 mg PO Q6H PRN PRN Reason: Pain, Mild (1-3) Last Admin: 02/04/18 09:38 Dose: 650 mg Albuterol/Ipratropium (Duoneb 3 Mg/0.5 Mg (3 Ml) Ud) 3 ml IH [id number] PRN PRN Reason: Shortness of Breath Last Admin: 02/04/18 07:35 Dose: 3 ml Arformoterol Tartrate (Brovana) 15 mcg IH [id number] [facility] Last Admin: 02/05/18 20:36 Dose: Not Given Aspirin (Ecotrin) 81 mg PO DAILY [facility] Last Admin: 02/05/18 09:57 Dose: 81 mg Atorvastatin Calcium (Lipitor) 80 mg PO HS [facility] Last Admin: 02/04/18 22:08 Dose: 80 mg Budesonide (Pulmicort Respules) 0.5 mg IH Q12H [facility] Last Admin: 02/05/18 20:37 Dose: Not Given Duloxetine HCl (Cymbalta) 40 mg PO DAILY [facility] Last Admin: 02/05/18 09:57 Dose: 40 mg Famotidine (Pepcid) 20 mg PO HS [facility] Last Admin: 02/04/18 22:08 Dose: 20 mg Fenofibrate (Tricor) 145 mg PO DAILY [facility] Last Admin: 02/05/18 09:57 Dose: 145 mg Fluticasone Propionate (Flonase) 1 actuation NS DAILY PRN PRN Reason: Nasal congestion Guaifenesin (Mucinex La) 600 mg PO BID PRN PRN Reason: Cough Heparin Sodium (Porcine) (Heparin) 5,000 units SC Q12 [facility]; Protocol Last Admin: 01/26/18 15:40 Dose: Not Given Daptomycin 650 mg/ Sodium (Chloride) 100 mls @ 200 mls/hr IV Q24H [facility] Stop: 02/08/18 10:01 Last Admin: 02/05/18 17:31 Dose: 200 mls/hr Insulin Human Regular (Humulin R High) 0 units SC ACHS [facility]; Protocol Last Admin: 02/05/18 17:30 Dose: Not Given Insulin Human Regular (Humulin R) 5 units SC AC [facility] Last Admin: 02/05/18 17:29 Dose: Not Given Latanoprost (Xalatan Opht) 0 ml OU HS [facility] Last Admin: 02/04/18 22:00 Dose: Not Given Levothyroxine Sodium (Synthroid) 50 mcg PO 0600 [facility] Last Admin: 02/05/18 06:59 Dose: 50 mcg Metoprolol Tartrate (Lopressor) 25 mg PO BID [facility] Last Admin: 02/05/18 17:45 Dose: Not Given Midodrine (Proamatine) 5 mg PO TID [facility] Last Admin: 02/05/18 17:28 Dose: 5 mg Ondansetron HCl (Zofran Inj) 4 mg IVP Q6H PRN PRN Reason: Nausea/Vomiting Last Admin: 02/02/18 20:16 Dose: 4 mg Sodium Chloride ([place] Nasal [place]) 0 ml NS Q2 PRN PRN Reason: nasal congestion. Zaleplon (Sonata) 5 mg PO HS [facility] Last Admin: 02/04/18 22:08 Dose: 5 mg - Labs Labs: 02/05/18 12:00 02/05/18 12:00 PT 18.7 sec (9.0-11.5) H 01/25/18 09:00 INR 1.77 01/23/18 08:50 APTT 33.8 Seconds (25.1-36.5) 01/23/18 08:50 Assessment and Plan - Assessment and Plan (Free Text) Plan: Pt seen and examined. I have reviewed the note of the biomedical service engineer and agree with it. I have discussed the assessment and plan with the resident. I have reviewed the patient's labs and medications. Pt with sepsis on Daptomycin. On HD for ESRD. Spoke to pt's mother today to give update. She does not want him to go to [facility] and prefers home. DM-2 is controlled on ISS. Poor prognosis. Spoke to Dr Alfredo Wynn and will need further evaluation for PAD.
--- NOTE | 2018-02-05 15:20 | CP.PCM.CON ---
History of Present Illness - History of Present Illness History of Present Illness: Surgery: Dr. Schwarz Reason for consult: necrosis L middle finger tip, DRIL procedure HPI: Patient is a 52 y/o male w/ pmhx of L arm AVF and distal limb ischemia, CAD and severe peripheral vascular disease on Brilinta, ESRD on HD, RLE gangrene resulting in BKA with worsening ischemia of the hands 2/2 PVD. Patient underwent evaluation of the LUE with Dr. Davis to evaluate the L AVF which was found to have retrograde flow causing steal syndrome of the L hand. The result was a middle finger tip necrosis which resulted in amputation. Patient is a poor operative candidate due to multiple comorbidities, thrombocytopenia, and CAD requiring continuation of his Brilinta so while DRIL procedure was discussed and the optimal surgical plan the ischemia had well demarcated and the decision to amputate the L finger tip was deemed as a less invasive and appropriate procedure to perform. Per the primary vascular surgeon, the patient would need to be better medically optimized prior to performing a DRIL procedure. Patient was admitted to [facility] for Sepsis, VRE + blood cultures. During the admission, the R BKA stump wound was noted to be poor healing with necrotic skin edges so patient was taken by Dr. Urrutia for BKA wound debridement. The patient tolerated the procedure well under light sedation but subsequently with the initiation of Brilinta patient had persistant oozing from wound resulting in the need for blood transfusion, ceasing after platelet transfusion. Patient now with ischemic changes to the Right fifth finger which is demarcating to approximately PIP joint. Patient underwent angio with Dr. Alfredo Wynn which showed severe microvascular disease of the right hand with a patent arch and patent proximal arm vessels, no further intervention could be performed. Second surgical opinion requested for possible DRIL procedure on the Left. PMH: severe PVD, DM II, CHF, HTN, BPH, CVA, anemia, ESRD on HD (Monday, , Monday), Neuropathy PSH: L AV fistula, cholecystectomy, R BKA in October 2017 and revision debridement 01/2018, L cornea transplant, pacemaker insertion, left third finger amputation Social History: denies tobacco and drug use. Patient used to drink occasionally 20 years ago Review of Systems - Review of Systems Systems not reviewed;Unavailable: Altered Mental Status Past Patient History - Infectious Disease Hx of Infectious Diseases: None - Tetanus Immunizations Tetanus Immunization: Up to Date - Past Medical History & Family History Past Medical History?: Yes - Past Social History Smoking Status: Never Smoked - CARDIAC Hx Congestive Heart Failure: Yes Hx Hypertension: Yes - PULMONARY Hx Chronic Obstructive Pulmonary Disease (COPD): Yes - NEUROLOGICAL HX Cerebrovascular Accident: Yes - HEENT Hx HEENT Problems: Yes Hx Blind: No Hx Cataracts: Yes Hx Deafness: No Hx Difficulty Chewing: No - RENAL Hx Renal Failure: Yes (on HD) - ENDOCRINE/METABOLIC Hx Diabetes Mellitus Type 2: Yes - HEMATOLOGICAL/ONCOLOGICAL Hx AIDS: No Hx Anemia: Yes Hx Blood Transfusions: Yes Hx Blood Transfusion Reaction: No - INTEGUMENTARY Hx Dermatological Problems: No - MUSCULOSKELETAL/RHEUMATOLOGICAL Hx Arthritis: Yes - GASTROINTESTINAL Hx Gastrointestinal Disorders: Yes Hx Colostomy: No Hx Liver Failure: Yes Hx Pancreatitis: Yes - GENITOURINARY/GYNECOLOGICAL Hx Genitourinary Disorders: Yes Hx Hematuria: Yes - PSYCHIATRIC Hx Psychophysiologic Disorder: Yes Hx Anxiety: Yes Hx Substance Use: No - SURGICAL HISTORY Hx Amputation: Yes Hx Cardiac Catheterization: Yes Hx Cholecystectomy: Yes Hx Coronary Stent: Yes Hx Musculoskeletal Surgery: Yes - ANESTHESIA Hx Anesthesia: Yes Hx Anesthesia Reactions: No Hx Malignant Hyperthermia: No Meds Allergies/Adverse Reactions: Allergies Allergy/AdvReac Type Severity Reaction Status Date / Time insulin aspart [From Novolog] Allergy Intermediate RASH Verified 01/15/18 23:49 moxifloxacin Allergy Intermediate RASH Verified 01/15/18 23:49 Penicillins Allergy Intermediate RASH Verified 01/15/18 23:49 - Medications Medications: Current Medications Acetaminophen (Tylenol 325mg Tab) 650 mg PO Q6H PRN PRN Reason: Pain, Mild (1-3) Last Admin: 02/04/18 09:38 Dose: 650 mg Albuterol/Ipratropium (Duoneb 3 Mg/0.5 Mg (3 Ml) Ud) 3 ml IH [id number] PRN PRN Reason: Shortness of Breath Last Admin: 02/04/18 07:35 Dose: 3 ml Arformoterol Tartrate (Brovana) 15 mcg IH [id number] [facility] Last Admin: 02/05/18 07:45 Dose: 15 mcg Aspirin (Ecotrin) 81 mg PO DAILY [facility] Last Admin: 02/05/18 09:57 Dose: 81 mg Atorvastatin Calcium (Lipitor) 80 mg PO HS [facility] Last Admin: 02/04/18 22:08 Dose: 80 mg Budesonide (Pulmicort Respules) 0.5 mg IH Q12H [facility] Last Admin: 02/05/18 07:45 Dose: 0.5 mg Duloxetine HCl (Cymbalta) 40 mg PO DAILY [facility] Last Admin: 02/05/18 09:57 Dose: 40 mg Famotidine (Pepcid) 20 mg PO HS [facility] Last Admin: 02/04/18 22:08 Dose: 20 mg Fenofibrate (Tricor) 145 mg PO DAILY [facility] Last Admin: 02/05/18 09:57 Dose: 145 mg Fluticasone Propionate (Flonase) 1 actuation NS DAILY PRN PRN Reason: Nasal congestion Guaifenesin (Mucinex La) 600 mg PO BID PRN PRN Reason: Cough Heparin Sodium (Porcine) (Heparin) 5,000 units SC Q12 [facility]; Protocol Last Admin: 01/26/18 15:40 Dose: Not Given Daptomycin 650 mg/ Sodium (Chloride) 100 mls @ 200 mls/hr IV Q24H [facility] Stop: 02/08/18 10:01 Last Admin: 02/04/18 11:34 Dose: 200 mls/hr Insulin Human Regular (Humulin R High) 0 units SC ACHS [facility]; Protocol Last Admin: 02/05/18 08:54 Dose: 2 units Insulin Human Regular (Humulin R) 5 units SC AC [facility] Last Admin: 02/05/18 08:56 Dose: 5 units Latanoprost (Xalatan Opht) 0 ml OU HS [facility] Last Admin: 02/04/18 22:00 Dose: Not Given Levothyroxine Sodium (Synthroid) 50 mcg PO 0600 [facility] Last Admin: 02/05/18 06:59 Dose: 50 mcg Metoprolol Tartrate (Lopressor) 25 mg PO BID [facility] Last Admin: 02/05/18 09:57 Dose: 25 mg Midodrine (Proamatine) 5 mg PO TID [facility] Last Admin: 02/05/18 09:57 Dose: 5 mg Ondansetron HCl (Zofran Inj) 4 mg IVP Q6H PRN PRN Reason: Nausea/Vomiting Last Admin: 02/02/18 20:16 Dose: 4 mg Sodium Chloride ([place] Nasal [place]) 0 ml NS Q2 PRN PRN Reason: nasal congestion. Zaleplon (Sonata) 5 mg PO HS [facility] Last Admin: 02/04/18 22:08 Dose: 5 mg Physical Exam - Constitutional Appears: No Acute Distress - Head Exam Head Exam: ATRAUMATIC, NORMOCEPHALIC - Eye Exam Eye Exam: EOMI - ENT Exam ENT Exam: Mucous Membranes Moist - Respiratory Exam Respiratory Exam: absent: Respiratory Distress - Cardiovascular Exam Cardiovascular Exam: REGULAR RHYTHM. absent: Tachycardia - Extremities Exam Additional comments: dry gangrene to the left middle finger amputation, stable ischemic changes to the right fifth finger Results - Vital Signs Recent Vital Signs: Last Vital Signs Temp 98.2 F 02/05/18 05:50 Pulse 85 02/05/18 09:57 Resp 18 02/05/18 05:50 BP 110/56 L 02/05/18 09:57 Pulse Ox 98 02/05/18 05:50 - Labs Result Diagrams: 02/05/18 12:00 02/05/18 12:00 Labs: Laboratory Results - last 24 hr 02/04/18 02/04/18 02/05/18 16:55 21:38 07:44 WBC RBC Hgb Hct MCV MCH MCHC RDW Plt Count MPV Gran % Lymph % (Auto) [place] % (Auto) Eos % (Auto) Baso % (Auto) Gran # Lymph # (Auto) [place] # (Auto) Eos # (Auto) Baso # (Auto) Sodium Potassium Chloride Carbon Dioxide Anion Gap BUN Creatinine Est GFR ( Amer) Est GFR (Non-Af Amer) POC Glucose (mg/dL) 182 H 223 H 167 H Random Glucose Calcium Phosphorus Magnesium Total Bilirubin AST ALT Alkaline Phosphatase Total Protein Albumin Globulin Albumin/Globulin Ratio 02/05/18 02/05/18 02/05/18 07:56 12:00 12:00 WBC 10.1 D RBC 2.68 L Hgb 8.5 L Hct 26.0 L MCV 97.0 MCH 31.7 MCHC 32.7 RDW 20.2 H Plt Count 97 L MPV 11.1 H Gran % 78.0 H Lymph % (Auto) 11.7 L [place] % (Auto) 9.9 H Eos % (Auto) 0.2 L Baso % (Auto) 0.2 Gran # 7.90 H Lymph # (Auto) 1.2 [place] # (Auto) 1.0 H Eos # (Auto) 0.0 Baso # (Auto) 0.02 Sodium 135 Potassium 4.5 Chloride 98 Carbon Dioxide 28 Anion Gap 13 BUN 32 H Creatinine 3.8 H Est GFR ( Amer) 20 Est GFR (Non-Af Amer) 17 POC Glucose (mg/dL) 192 H Random Glucose 116 H Calcium 7.6 L Phosphorus 5.5 H Magnesium 2.1 Total Bilirubin 1.1 AST 108 H D ALT 35 Alkaline Phosphatase 161 H Total Protein 5.4 L Albumin 2.0 L Globulin 3.4 Albumin/Globulin Ratio 0.6 L Assessment & Plan - Assessment and Plan (Free Text) Assessment: 52 y/o male w/ severe PVD with bilateral ischemic changes to the fingers, qu estionable steal syndrome Plan: -ischemic changes could be 2/2 severity of PVD -prior AVF doppler showed retrograde flow and DRIL procedure planned at that time however due to patients thrombocytopenia and need for continuation of antiplatelet therapy, surgery was postponed until medically optimized -for L hand ischemia DRIL procedure can be performed however Bilinta would need to be held at a minimum of 5 days prior to OR and platelet count would need to be normalized. If underlying pathology due to PVD, procedure might not completely eliminate the symptoms considering the progressive ischemic changes to the R finger w/o the presence of AVF. -can apply betadine to dry gangrene areas BID for local wound care -case discussed in length with Dr. Schwarz, further recs per him AKWhite PGY4
--- NOTE | 2018-02-05 16:19 | PN ---
DATE: 02/05/2018 REASON FOR CONSULTATION ADN FOLLOWUP: Cardiac evaluation and followup, history of coronary artery disease, history of PAD, pacemaker. SUBJECTIVE: The patient is hemodynamically stable, history of end-stage renal disease, on dialysis, history of coronary artery disease with stent, history of pacemaker, sick sinus syndrome, history of PAD, status post amputation, and bleeding after the stump wound cleaned, off Brilinta. RECOMMENDATION: Continue baby aspirin, continue DVT prophylaxis, continue atorvastatin and metoprolol. DISCHARGE PLANNING: To rule out any hypercoagulable state, history of multiple gangrene, awaiting for workup. In the interim, continue current medication. This note is an addition to a note dictated by nurse practitioner, Karlie Moreau. We will talk to the family. Tank you for providing us the opportunity in taking care of the patient, Ab. Jarred Erickson MD
--- NOTE | 2018-02-05 20:43 | PN ---
DATE: 02/05/2018 PULMONARY PROGRESS NOTE REFERRING PHYSICIAN: Dr. Potter SUBJECTIVE: He is just coming back from dialysis which was uneventful. No headache, no rhinitis. No cough. No sputum production. No chest pain. No nausea, no vomiting. Right stump is covered with dressing. Right hand fifth digit is ischemic, has dressing on the left hand. OBJECTIVE: GENERAL: In no acute distress. VITAL SIGNS: Temperature is 98, heart rate 71, respiratory rate is 18, blood pressure 91/34, pulse ox 98% on nasal cannula. HEENT: Moist mucous membrane. Crowded airway. Mallampati score is 4. NECK: Supple. No JVD. LUNGS: Have fair airflow with rhonchi. HEART: S1 and S2. ABDOMEN: Soft, nontender. No organomegaly. EXTREMITIES: There is trace edema of the left leg. Right stump is covered with dressing. Right hand fifth digit is ischemic. Has a dressing on the left hand, amputation of finger site. NEUROLOGIC: Awake and alert, does follow simple commands. MEDICATIONS: He is on Brovana inhaled twice a day, Cymbalta 40 mg daily, daptomycin 650 mg every 24 hours, DuoNeb every 6 hours p.r.n., Ecotrin 81 g daily, Flonase one spray to each nostril daily, heparin 5000 units every 12 hours, insulin coverage, Lipitor 80 mg daily, metoprolol tartrate 25 mg twice a day, Mucinex LA 600 mg twice a day p.r.n., nasal saline every 2 hours p.r.n., Pepcid 20 mg at bedtime, midodrine 5 mg three times a day, Pulmicort inhaled twice a day, Sonata 5 mg at bedtime, Synthroid 50 mcg daily, TriCor 145 mg daily, Tylenol p.r.n. basis, Zofran p.r.n. basis. LABORATORY DATA: Shows hemoglobin 8.5, hematocrit 26, WBC 10.1, platelet count is 97. Sodium 135, potassium 4.5, chloride 98, bicarbonate 28, BUN 32, creatinine 3.8, glucose 116, calcium 7.6, phosphorus 5.5, magnesium 2.1, AST 18, ALT 35, alk phos is 161. Albumin is 2. Microbiology, repeat blood culture since 01/30, there is no growth. Pleural fluid culture, there is no growth. IMPRESSION AND PLAN: Resolving bacteremia, infected stump at the right below-knee amputation site, has a dressing on it, chronic obstructive lung disease, obstructive sleep apnea syndrome, cardiomyopathy, coronary artery disease, cardiac arrhythmia requiring pacemaker, renal failure, dialysis dependent, diabetes, severe peripheral vascular disease, status post right below-knee amputation of the left third digit, ischemic right hand fifth digit. Sleep apnea precaution. Noncompliant with the CPAP. Careful with sedation. Continue antibiotics as per Infectious Disease. Bronchodilator. Deep venous thrombosis prophylaxis. Vascular Surgery followup. Pressure ulcer precaution. Out of bed to chair if possible. Thank you and we will follow with you. Jarred Escalera MD
--- NOTE | 2018-02-05 23:03 | CP.PCM.PN ---
Subjective - Date & Time of Evaluation Date of Evaluation: 02/03/18 Time of Evaluation: 13:00 - Subjective Subjective: Feels weak. Objective - Vital Signs/Intake and Output Vital Signs (last 24 hours): Temp Pulse Resp BP Pulse Ox 97.4 F L 68 18 91/34 L 98 02/05/18 18:00 02/05/18 18:00 02/05/18 18:00 02/05/18 18:00 02/05/18 05:50 Intake and Output: 02/05/18 02/06/18 18:59 06:59 Intake Total 200 Output Total 3200 Balance -3000 - Medications Medications: Current Medications Acetaminophen (Tylenol 325mg Tab) 650 mg PO Q6H PRN PRN Reason: Pain, Mild (1-3) Last Admin: 02/04/18 09:38 Dose: 650 mg Albuterol/Ipratropium (Duoneb 3 Mg/0.5 Mg (3 Ml) Ud) 3 ml IH [id number] PRN PRN Reason: Shortness of Breath Last Admin: 02/04/18 07:35 Dose: 3 ml Arformoterol Tartrate (Brovana) 15 mcg IH [id number] [facility] Last Admin: 02/05/18 20:36 Dose: Not Given Aspirin (Ecotrin) 81 mg PO DAILY [facility] Last Admin: 02/05/18 09:57 Dose: 81 mg Atorvastatin Calcium (Lipitor) 80 mg PO HS [facility] Last Admin: 02/04/18 22:08 Dose: 80 mg Budesonide (Pulmicort Respules) 0.5 mg IH Q12H [facility] Last Admin: 02/05/18 20:37 Dose: Not Given Duloxetine HCl (Cymbalta) 40 mg PO DAILY [facility] Last Admin: 02/05/18 09:57 Dose: 40 mg Famotidine (Pepcid) 20 mg PO HS [facility] Last Admin: 02/04/18 22:08 Dose: 20 mg Fenofibrate (Tricor) 145 mg PO DAILY [facility] Last Admin: 02/05/18 09:57 Dose: 145 mg Fluticasone Propionate (Flonase) 1 actuation NS DAILY PRN PRN Reason: Nasal congestion Guaifenesin (Mucinex La) 600 mg PO BID PRN PRN Reason: Cough Heparin Sodium (Porcine) (Heparin) 5,000 units SC Q12 [facility]; Protocol Last Admin: 01/26/18 15:40 Dose: Not Given Daptomycin 650 mg/ Sodium (Chloride) 100 mls @ 200 mls/hr IV Q24H [facility] Stop: 02/08/18 10:01 Last Admin: 02/05/18 17:31 Dose: 200 mls/hr Insulin Human Regular (Humulin R High) 0 units SC ACHS [facility]; Protocol Last Admin: 02/05/18 17:30 Dose: Not Given Insulin Human Regular (Humulin R) 5 units SC AC [facility] Last Admin: 02/05/18 17:29 Dose: Not Given Latanoprost (Xalatan Opht) 0 ml OU HS [facility] Last Admin: 02/04/18 22:00 Dose: Not Given Levothyroxine Sodium (Synthroid) 50 mcg PO 0600 [facility] Last Admin: 02/05/18 06:59 Dose: 50 mcg Metoprolol Tartrate (Lopressor) 25 mg PO BID [facility] Last Admin: 02/05/18 17:45 Dose: Not Given Midodrine (Proamatine) 5 mg PO TID [facility] Last Admin: 02/05/18 17:28 Dose: 5 mg Ondansetron HCl (Zofran Inj) 4 mg IVP Q6H PRN PRN Reason: Nausea/Vomiting Last Admin: 02/02/18 20:16 Dose: 4 mg Sodium Chloride ([place] Nasal [place]) 0 ml NS Q2 PRN PRN Reason: nasal congestion. Zaleplon (Sonata) 5 mg PO HS [facility] Last Admin: 02/04/18 22:08 Dose: 5 mg - Labs Labs: 02/05/18 12:00 02/05/18 12:00 PT 18.7 sec (9.0-11.5) H 01/25/18 09:00 INR 1.77 01/23/18 08:50 APTT 33.8 Seconds (25.1-36.5) 01/23/18 08:50 - Head Exam Head Exam: ATRAUMATIC - Eye Exam Eye Exam: Normal appearance - ENT Exam ENT Exam: Mucous Membranes Dry - Respiratory Exam Respiratory Exam: NORMAL BREATHING PATTERN - Cardiovascular Exam Cardiovascular Exam: +S1, +S2 - GI/Abdominal Exam GI & Abdominal Exam: Normal Bowel Sounds Assessment and Plan (1) Hypercoagulable state Assessment & Plan: noted slightly diminished protein S activity; may be low due recent bleeding/clotting on dual antiplatelet therapy Status: Acute (2) Thrombocytopenia Assessment & Plan: mild improved from prior HIV and hepatitis B/C negative antiphospholipid Ab panel negative Status: Acute (3) Anemia Assessment & Plan: anemia of CKD anemia of chronic disease right LE stump bleeding transfusion support PRN Status: Acute (4) Leukocytosis Assessment & Plan: on antibiotics Status: Acute (5) Coagulopathy Assessment & Plan: repeat mixing study pending prior study corrected suggesting factor deficiency/nutritional coagulopathy Status: Acute
--- NOTE | 2018-02-05 23:06 | CP.PCM.PN ---
Subjective - Date & Time of Evaluation Date of Evaluation: 02/05/18 Time of Evaluation: 19:00 - Subjective Subjective: Feels weak, confused this AM Objective - Vital Signs/Intake and Output Vital Signs (last 24 hours): Temp Pulse Resp BP Pulse Ox 97.4 F L 68 18 91/34 L 98 02/05/18 18:00 02/05/18 18:00 02/05/18 18:00 02/05/18 18:00 02/05/18 05:50 Intake and Output: 02/05/18 02/06/18 18:59 06:59 Intake Total 200 Output Total 3200 Balance -3000 - Medications Medications: Current Medications Acetaminophen (Tylenol 325mg Tab) 650 mg PO Q6H PRN PRN Reason: Pain, Mild (1-3) Last Admin: 02/04/18 09:38 Dose: 650 mg Albuterol/Ipratropium (Duoneb 3 Mg/0.5 Mg (3 Ml) Ud) 3 ml IH [id number] PRN PRN Reason: Shortness of Breath Last Admin: 02/04/18 07:35 Dose: 3 ml Arformoterol Tartrate (Brovana) 15 mcg IH [id number] [facility] Last Admin: 02/05/18 20:36 Dose: Not Given Aspirin (Ecotrin) 81 mg PO DAILY [facility] Last Admin: 02/05/18 09:57 Dose: 81 mg Atorvastatin Calcium (Lipitor) 80 mg PO HS [facility] Last Admin: 02/04/18 22:08 Dose: 80 mg Budesonide (Pulmicort Respules) 0.5 mg IH Q12H [facility] Last Admin: 02/05/18 20:37 Dose: Not Given Duloxetine HCl (Cymbalta) 40 mg PO DAILY [facility] Last Admin: 02/05/18 09:57 Dose: 40 mg Famotidine (Pepcid) 20 mg PO HS [facility] Last Admin: 02/04/18 22:08 Dose: 20 mg Fenofibrate (Tricor) 145 mg PO DAILY [facility] Last Admin: 02/05/18 09:57 Dose: 145 mg Fluticasone Propionate (Flonase) 1 actuation NS DAILY PRN PRN Reason: Nasal congestion Guaifenesin (Mucinex La) 600 mg PO BID PRN PRN Reason: Cough Heparin Sodium (Porcine) (Heparin) 5,000 units SC Q12 [facility]; Protocol Last Admin: 01/26/18 15:40 Dose: Not Given Daptomycin 650 mg/ Sodium (Chloride) 100 mls @ 200 mls/hr IV Q24H [facility] Stop: 02/08/18 10:01 Last Admin: 02/05/18 17:31 Dose: 200 mls/hr Insulin Human Regular (Humulin R High) 0 units SC ACHS [facility]; Protocol Last Admin: 02/05/18 17:30 Dose: Not Given Insulin Human Regular (Humulin R) 5 units SC AC [facility] Last Admin: 02/05/18 17:29 Dose: Not Given Latanoprost (Xalatan Opht) 0 ml OU HS [facility] Last Admin: 02/04/18 22:00 Dose: Not Given Levothyroxine Sodium (Synthroid) 50 mcg PO 0600 [facility] Last Admin: 02/05/18 06:59 Dose: 50 mcg Metoprolol Tartrate (Lopressor) 25 mg PO BID [facility] Last Admin: 02/05/18 17:45 Dose: Not Given Midodrine (Proamatine) 5 mg PO TID [facility] Last Admin: 02/05/18 17:28 Dose: 5 mg Ondansetron HCl (Zofran Inj) 4 mg IVP Q6H PRN PRN Reason: Nausea/Vomiting Last Admin: 02/02/18 20:16 Dose: 4 mg Sodium Chloride ([place] Nasal [place]) 0 ml NS Q2 PRN PRN Reason: nasal congestion. Zaleplon (Sonata) 5 mg PO HS [facility] Last Admin: 02/04/18 22:08 Dose: 5 mg - Labs Labs: 02/05/18 12:00 02/05/18 12:00 PT 18.7 sec (9.0-11.5) H 01/25/18 09:00 INR 1.77 01/23/18 08:50 APTT 33.8 Seconds (25.1-36.5) 01/23/18 08:50 - Head Exam Head Exam: ATRAUMATIC - Eye Exam Eye Exam: Normal appearance - ENT Exam ENT Exam: Mucous Membranes Dry - Respiratory Exam Respiratory Exam: NORMAL BREATHING PATTERN - Cardiovascular Exam Cardiovascular Exam: +S1, +S2 - GI/Abdominal Exam GI & Abdominal Exam: Normal Bowel Sounds Assessment and Plan (1) Hypercoagulable state Assessment & Plan: noted slightly diminished protein S activity; may be low due recent bleeding/clotting on antiplatelet therapy Status: Acute (2) Thrombocytopenia Assessment & Plan: mild improved from prior HIV and hepatitis B/C negative antiphospholipid Ab panel negative Status: Acute (3) Anemia Assessment & Plan: anemia of CKD anemia of chronic disease right LE stump bleeding transfusion support PRN Status: Acute (4) Leukocytosis Assessment & Plan: on antibiotics Status: Acute (5) Coagulopathy Assessment & Plan: repeat mixing study pending prior study corrected suggesting factor deficiency/nutritional coagulopathy Status: Acute
[2018-02-06] MEDS: Insulin Reg-HIGH-Coverage SC SCH ×5 (05:23→22:12)
--- NOTE | 2018-02-06 06:04 | CP.PCM.PN ---
Subjective - Date & Time of Evaluation Date of Evaluation: 02/06/18 Time of Evaluation: 06:25 - Subjective Subjective: No distress, Lying in bed, confuse,awake,denies shortness of breath Reason for consultation and follow up: Cardiac evaluation of chest pain,follow up of coronary artery disease, History of PPM, admitted for diarrhea, infected right BKA stump with debridement and wound VAC, status post LAUNDRY AIDE for hypotension and bleeding from stump, post thoracenthesis for pleural effusion Seen and examined by me and Dr. Erickson Objective - Vital Signs/Intake and Output Vital Signs (last 24 hours): Temp Pulse Resp BP Pulse Ox 97.9 F 65 17 97/48 L 100 02/06/18 00:01 02/06/18 00:01 02/06/18 00:01 02/06/18 00:01 02/06/18 00:01 Intake and Output: 02/05/18 02/06/18 18:59 06:59 Intake Total 200 Output Total 3200 Balance -3000 - Medications Medications: Current Medications Acetaminophen (Tylenol 325mg Tab) 650 mg PO Q6H PRN PRN Reason: Pain, Mild (1-3) Last Admin: 02/04/18 09:38 Dose: 650 mg Albuterol/Ipratropium (Duoneb 3 Mg/0.5 Mg (3 Ml) Ud) 3 ml IH [id number] PRN PRN Reason: Shortness of Breath Last Admin: 02/04/18 07:35 Dose: 3 ml Arformoterol Tartrate (Brovana) 15 mcg IH [id number] [facility] Last Admin: 02/05/18 20:36 Dose: Not Given Aspirin (Ecotrin) 81 mg PO DAILY [facility] Last Admin: 02/05/18 09:57 Dose: 81 mg Atorvastatin Calcium (Lipitor) 80 mg PO [facility] Last Admin: 02/06/18 05:27 Dose: Not Given Budesonide (Pulmicort Respules) 0.5 mg IH Q12H [facility] Last Admin: 02/05/18 20:37 Dose: Not Given Duloxetine HCl (Cymbalta) 40 mg PO DAILY [facility] Last Admin: 02/05/18 09:57 Dose: 40 mg Famotidine (Pepcid) 20 mg PO [facility] Last Admin: 02/04/18 22:08 Dose: 20 mg Fenofibrate (Tricor) 145 mg PO DAILY [facility] Last Admin: 02/05/18 09:57 Dose: 145 mg Fluticasone Propionate (Flonase) 1 actuation NS DAILY PRN PRN Reason: Nasal congestion Guaifenesin (Mucinex La) 600 mg PO BID PRN PRN Reason: Cough Heparin Sodium (Porcine) (Heparin) 5,000 units SC Q12 [facility]; Protocol Last Admin: 01/26/18 15:40 Dose: Not Given Daptomycin 650 mg/ Sodium (Chloride) 100 mls @ 200 mls/hr IV Q24H [facility] Stop: 02/08/18 10:01 Last Admin: 02/05/18 17:31 Dose: 200 mls/hr Insulin Human Regular (Humulin R High) 0 units SC ACHS [facility]; Protocol Last Admin: 02/06/18 05:23 Dose: Not Given Insulin Human Regular (Humulin R) 5 units SC AC [facility] Last Admin: 02/05/18 17:29 Dose: Not Given Latanoprost (Xalatan Opht) 0 ml OU HS [facility] Last Admin: 02/04/18 22:00 Dose: Not Given Levothyroxine Sodium (Synthroid) 50 mcg PO 0600 [facility] Last Admin: 02/05/18 06:59 Dose: 50 mcg Metoprolol Tartrate (Lopressor) 25 mg PO BID [facility] Last Admin: 02/05/18 17:45 Dose: Not Given Midodrine (Proamatine) 5 mg PO TID [facility] Last Admin: 02/05/18 17:28 Dose: 5 mg Ondansetron HCl (Zofran Inj) 4 mg IVP Q6H PRN PRN Reason: Nausea/Vomiting Last Admin: 02/02/18 20:16 Dose: 4 mg Sodium Chloride ([place] Nasal [place]) 0 ml NS Q2 PRN PRN Reason: nasal congestion. Zaleplon (Sonata) 5 mg PO HS [facility] Last Admin: 02/06/18 05:25 Dose: Not Given - Labs Labs: 02/05/18 12:00 02/05/18 12:00 PT 18.7 sec (9.0-11.5) H 01/25/18 09:00 INR 1.77 01/23/18 08:50 APTT 33.8 Seconds (25.1-36.5) 01/23/18 08:50 - Constitutional Appears: Non-toxic, No Acute Distress - Head Exam Head Exam: NORMAL INSPECTION, NORMOCEPHALIC - Eye Exam Eye Exam: Normal appearance - ENT Exam ENT Exam: Mucous Membranes Moist - Respiratory Exam Respiratory Exam: Decreased Breath Sounds, NORMAL BREATHING PATTERN - Cardiovascular Exam Cardiovascular Exam: Irregular Rhythm, +S1, +S2 Additional comments: Telemetry atrial flutter 70's PPM - GI/Abdominal Exam GI & Abdominal Exam: Soft, Normal Bowel Sounds - Exam Additional comments: ESRD hemodialysis 3x a week - Extremities Exam Additional comments: Left AV shunt positive bruit right BKA stump wrapped with pearl wrap Left middle finger amputated right 5th digit necrotic - Neurological Exam Neurological Exam: Alert, Awake Additional comments: confuse - Psychiatric Exam Psychiatric exam: Normal Affect, Normal Mood - Skin Skin Exam: Dry, Normal Color, Warm Assessment and Plan - Assessment and Plan (Free Text) Assessment: A 52 year old male obese who came in to the ER due to diarrhea for the past week prior to admission. History of very brittle insulin dependent diabetes mellitus, diabetic neuropathy,diabetic retinopathy,nephropathy,end stage renal disease, on hemodialysis 3x a week, left arm AV shunt /fistula, hypertension, hyperlipidemia,TIA, coronary artery disease with stents,resistant to Plavix, on Brilinta. severe peripheral vascular disease, post right below knee amputation, left middle finger amputation,TIA, PPM for sick sinus syndrome. subdural hematoma due to fall, COPD, pancreatitis. No evidence of myocardial infarction. Troponin negative, Positive for C-difficile.Right BKA stump positive for VRE. Blood culture from 01/17 positive for serratia, repeat blood culture done 01/18/18, so far no growth after [address] of head done to rule out bleeding. CT showed no hemorrhage/bleeding.Refusing CPAP/BIPAP at night. Had debridement of right BKA stump with wound VAC. status post LAUNDRY AIDE for hypotension and bleeding from stump, # units of PRBC given.Transferred to ICU. Post right thoracenthesis for pleural effusion (1200 cc). Transferred to telemetry.Post upper extremity angiogram yesterday,severe disease of the right hand involving the metacarpal arteries and digital arteries, severe involving 5th digit. Proximal arteries of the right upper extremity widely open. On contact isolation for VRE Plan: No distress,confuse On contact isolation for VRE Continue IV antibiotics as per ID Blood pressure stable Heart rate stable Cardiac status stable Nutritional support Glucose controlled,no hypoglycemia On ASA 81 mg daily,Lipitor 80 mg daily, Tricor 145 mg daily,Lopressor 25 mg BID, [place] 5 mg TID, Synthroid 50 mcg daily,Heparin 5000 units SC every 12 hours Continue current treatment Continue current medications Physical therapy Chart reviewed Will follow up Plan and treatment discussed with Dr. Erickson
--- NOTE | 2018-02-06 08:13 | CP.PCM.PN ---
Subjective - Date & Time of Evaluation Date of Evaluation: 02/06/18 Time of Evaluation: 08:10 - Subjective Subjective: Surgery progress note for Dr. Schwarz Patient seen and examined at bedside this morning. He states he feels "not too bad." He denies headaches, chest pain, abdominal pain, SOB. Patient was seen alongside respiratory therapist. Objective - Vital Signs/Intake and Output Vital Signs (last 24 hours): Temp Pulse Resp BP Pulse Ox 97.9 F 65 17 97/48 L 100 02/06/18 00:01 02/06/18 00:01 02/06/18 00:01 02/06/18 00:01 02/06/18 00:01 Intake and Output: 02/06/18 02/06/18 06:59 18:59 Intake Total 340 Balance 340 - Medications Medications: Current Medications Acetaminophen (Tylenol 325mg Tab) 650 mg PO Q6H PRN PRN Reason: Pain, Mild (1-3) Last Admin: 02/04/18 09:38 Dose: 650 mg Albuterol/Ipratropium (Duoneb 3 Mg/0.5 Mg (3 Ml) Ud) 3 ml IH [id number] PRN PRN Reason: Shortness of Breath Last Admin: 02/04/18 07:35 Dose: 3 ml Arformoterol Tartrate (Brovana) 15 mcg IH [id number] [facility] Last Admin: 02/05/18 20:36 Dose: Not Given Aspirin (Ecotrin) 81 mg PO DAILY [facility] Last Admin: 02/05/18 09:57 Dose: 81 mg Atorvastatin Calcium (Lipitor) 80 mg PO [facility] Last Admin: 02/06/18 05:27 Dose: Not Given Budesonide (Pulmicort Respules) 0.5 mg IH Q12H [facility] Last Admin: 02/05/18 20:37 Dose: Not Given Duloxetine HCl (Cymbalta) 40 mg PO DAILY [facility] Last Admin: 02/05/18 09:57 Dose: 40 mg Famotidine (Pepcid) 20 mg PO HS [facility] Last Admin: 02/04/18 22:08 Dose: 20 mg Fenofibrate (Tricor) 145 mg PO DAILY [facility] Last Admin: 02/05/18 09:57 Dose: 145 mg Fluticasone Propionate (Flonase) 1 actuation NS DAILY PRN PRN Reason: Nasal congestion Guaifenesin (Mucinex La) 600 mg PO BID PRN PRN Reason: Cough Heparin Sodium (Porcine) (Heparin) 5,000 units SC Q12 [facility]; Protocol Last Admin: 01/26/18 15:40 Dose: Not Given Daptomycin 650 mg/ Sodium (Chloride) 100 mls @ 200 mls/hr IV Q24H [facility] Stop: 02/08/18 10:01 Last Admin: 02/05/18 17:31 Dose: 200 mls/hr Insulin Human Regular (Humulin R High) 0 units SC ACHS [facility]; Protocol Last Admin: 02/06/18 05:23 Dose: Not Given Insulin Human Regular (Humulin R) 5 units SC AC [facility] Last Admin: 02/05/18 17:29 Dose: Not Given Latanoprost (Xalatan Opht) 0 ml OU HS [facility] Last Admin: 02/04/18 22:00 Dose: Not Given Levothyroxine Sodium (Synthroid) 50 mcg PO 0600 [facility] Last Admin: 02/05/18 06:59 Dose: 50 mcg Metoprolol Tartrate (Lopressor) 25 mg PO BID [facility] Last Admin: 02/05/18 17:45 Dose: Not Given Midodrine (Proamatine) 5 mg PO TID [facility] Last Admin: 02/05/18 17:28 Dose: 5 mg Ondansetron HCl (Zofran Inj) 4 mg IVP Q6H PRN PRN Reason: Nausea/Vomiting Last Admin: 02/02/18 20:16 Dose: 4 mg Sodium Chloride ([place] Nasal [place]) 0 ml NS Q2 PRN PRN Reason: nasal congestion. Zaleplon (Sonata) 5 mg PO HS [facility] Last Admin: 02/06/18 05:25 Dose: Not Given - Labs Labs: 02/05/18 12:00 02/05/18 12:00 PT 18.7 sec (9.0-11.5) H 01/25/18 09:00 INR 1.77 01/23/18 08:50 APTT 33.8 Seconds (25.1-36.5) 01/23/18 08:50 - Constitutional Appears: Older Than Stated Age, Chronically Ill - Head Exam Head Exam: ATRAUMATIC, NORMAL INSPECTION - Eye Exam Eye Exam: EOMI, Normal appearance - Neck Exam Neck Exam: Normal Inspection - Respiratory Exam Respiratory Exam: Decreased Breath Sounds, Wheezes (mild wheezing on anterior lung buck R > L) - Cardiovascular Exam Cardiovascular Exam: REGULAR RHYTHM - GI/Abdominal Exam GI & Abdominal Exam: Tenderness (RUQ tenderness to palpation). absent: Guarding, Rigid, Mass, Pulsatile Mass, Rebound - Extremities Exam Extremities Exam: absent: Normal Inspection Additional comments: extremities with weak/little to no pulses appreciated - Neurological Exam Neurological Exam: Alert, Awake, Oriented x3 (Patient was able to state where he is, his name, and ) - Psychiatric Exam Psychiatric exam: Normal Affect, Normal Mood - Skin Additional comments: Necrotic right 5th finger and edematous right hand and wrist. Dressings on left hand and right BKA stump c/d/i. Assessment and Plan - Assessment and Plan (Free Text) Assessment: 52 y/o male w/ severe PVD and ischemic changes to fingers bilaterally. Surgical consulted for management. -patient is a poor surgical candidate due to history of thrombocytopenia, need for antiplatelet therapy -for now, suggestion is to apply betadine to dry gangrene areas BID locally -possible ligation fistula pending discussion with Dr. Villar and Dr. Wynn. -patient need permacath if decision made to ligate case discussed with Dr. Schwarz, surgery attending Alyssa Lovelace DO PGY1
[2018-02-06] MEDS: Budesonide 0.5 mg/2 ml Inhal Susp UD IH SCH ×2 (08:14→20:28)
[2018-02-06] MEDS: Arformoterol 15 mcg/2 ml Inh Sol IH SCH ×2 (08:14→20:27)
[2018-02-06] MEDS: Insulin Regular 1 UNITS/0.01 ML ML SC SCH ×3 (08:55→17:05)
[2018-02-06 11:39] LABS: BASO # 0.01 K/mm3 (0.0-2.0); BASO % 0.1 % (0.0-3.0); EOS % 0.1 % (1.5-5.0); GRAN # 5.84 (1.4-6.5); GRAN % 73.5 % (50.0-68.0); HEMOGLOBIN 8.5 g/dL (14.0-18.0); LYMPH # 1.1 (1.2-3.4); LYMPH % 13.6 % (22.0-35.0); MEAN CELL VOLUME 97.8 fl (80.0-105.0); MEAN CORPUSCULAR HEMOGLOBIN 30.8 pg (25.0-35.0); MEAN CORPUSCULAR HGB CONC 31.5 g/dl (31.0-37.0); MEAN PLATELET VOLUME 11.7 fl (7.0-11.0); MONO % 12.7 % (1.0-6.0); RBC 2.76 10^6/uL (3.5-6.1); RED CELL DISTRIBUTION WIDTH 20.4 % (11.5-14.5)
[2018-02-06] MEDS: Levothyroxine 25 MCG TAB PO SCH (11:46)
[2018-02-06 11:51] LABS: ALB/GLOB RATIO 0.6 (1.1-1.8); ALBUMIN 2.2 g/dL (3.0-4.8); CALCIUM 7.7 mg/dL (8.4-10.5)
--- NOTE | 2018-02-06 12:21 | CP.PCM.PN ---
Subjective - Date & Time of Evaluation Date of Evaluation: 02/06/18 Time of Evaluation: 12:00 - Subjective Subjective: Feeling a little better today. Objective - Vital Signs/Intake and Output Vital Signs (last 24 hours): Temp Pulse Resp BP Pulse Ox 97.9 F 76 16 109/54 L 100 02/06/18 00:01 02/06/18 11:46 02/06/18 06:00 02/06/18 11:46 02/06/18 06:00 Intake and Output: 02/06/18 02/06/18 06:59 18:59 Intake Total 340 Balance 340 - Medications Medications: Current Medications Acetaminophen (Tylenol 325mg Tab) 650 mg PO Q6H PRN PRN Reason: Pain, Mild (1-3) Last Admin: 02/04/18 09:38 Dose: 650 mg Albuterol/Ipratropium (Duoneb 3 Mg/0.5 Mg (3 Ml) Ud) 3 ml IH [id number] PRN PRN Reason: Shortness of Breath Last Admin: 02/04/18 07:35 Dose: 3 ml Arformoterol Tartrate (Brovana) 15 mcg IH [id number] [facility] Last Admin: 02/06/18 08:14 Dose: 15 mcg Aspirin (Ecotrin) 81 mg PO DAILY [facility] Last Admin: 02/06/18 11:47 Dose: 81 mg Atorvastatin Calcium (Lipitor) 80 mg PO [facility] Last Admin: 02/06/18 05:27 Dose: Not Given Budesonide (Pulmicort Respules) 0.5 mg IH Q12H [facility] Last Admin: 02/06/18 08:14 Dose: 0.5 mg Duloxetine HCl (Cymbalta) 40 mg PO DAILY [facility] Last Admin: 02/06/18 11:46 Dose: 40 mg Famotidine (Pepcid) 20 mg PO HS [facility] Last Admin: 02/04/18 22:08 Dose: 20 mg Fenofibrate (Tricor) 145 mg PO DAILY [facility] Last Admin: 02/06/18 11:46 Dose: 145 mg Fluticasone Propionate (Flonase) 1 actuation NS DAILY PRN PRN Reason: Nasal congestion Guaifenesin (Mucinex La) 600 mg PO BID PRN PRN Reason: Cough Heparin Sodium (Porcine) (Heparin) 5,000 units SC Q12 [facility]; Protocol Last Admin: 01/26/18 15:40 Dose: Not Given Daptomycin 650 mg/ Sodium (Chloride) 100 mls @ 200 mls/hr IV Q24H [facility] Stop: 02/08/18 10:01 Last Admin: 02/06/18 12:06 Dose: 200 mls/hr Insulin Human Regular (Humulin R High) 0 units SC ACHS [facility]; Protocol Last Admin: 02/06/18 11:45 Dose: 7 units Insulin Human Regular (Humulin R) 5 units SC AC [facility] Last Admin: 02/06/18 11:45 Dose: 5 units Latanoprost (Xalatan Opht) 0 ml OU HS [facility] Last Admin: 02/04/18 22:00 Dose: Not Given Levothyroxine Sodium (Synthroid) 50 mcg PO 0600 [facility] Last Admin: 02/06/18 11:46 Dose: 50 mcg Metoprolol Tartrate (Lopressor) 25 mg PO BID [facility] Last Admin: 02/06/18 11:46 Dose: 25 mg Midodrine (Proamatine) 5 mg PO TID [facility] Last Admin: 02/06/18 11:46 Dose: 5 mg Ondansetron HCl (Zofran Inj) 4 mg IVP Q6H PRN PRN Reason: Nausea/Vomiting Last Admin: 02/02/18 20:16 Dose: 4 mg Sodium Chloride ([place] Nasal [place]) 0 ml NS Q2 PRN PRN Reason: nasal congestion. Zaleplon (Sonata) 5 mg PO HS [facility] Last Admin: 02/06/18 05:25 Dose: Not Given - Labs Labs: 02/06/18 11:30 02/06/18 11:30 PT 18.7 sec (9.0-11.5) H 01/25/18 09:00 INR 1.77 01/23/18 08:50 APTT 33.8 Seconds (25.1-36.5) 01/23/18 08:50 - Head Exam Head Exam: ATRAUMATIC - Eye Exam Eye Exam: Normal appearance - ENT Exam ENT Exam: Mucous Membranes Dry - Respiratory Exam Respiratory Exam: NORMAL BREATHING PATTERN - Cardiovascular Exam Cardiovascular Exam: +S1, +S2 - GI/Abdominal Exam GI & Abdominal Exam: Normal Bowel Sounds Assessment and Plan (1) Hypercoagulable state Assessment & Plan: noted slightly diminished protein S activity; may be low due recent bleeding/clotting on antiplatelet therapy Status: Acute (2) Thrombocytopenia Assessment & Plan: HIV and hepatitis B/C negative antiphospholipid Ab panel negative Status: Acute (3) Anemia Assessment & Plan: anemia of CKD anemia of chronic disease right LE stump bleeding transfusion support PRN Status: Acute (4) Coagulopathy Assessment & Plan: repeat mixing study pending prior study corrected suggesting factor deficiency/nutritional coagulopathy Status: Acute
--- NOTE | 2018-02-06 14:41 | CP.PCM.PN ---
<Jose Huertas - Last Filed: 02/06/18 14:36> Subjective - Date & Time of Evaluation Date of Evaluation: 02/06/18 Time of Evaluation: 07:00 - Subjective Subjective: Progress Note for Dr. Potter Service Patient seen and examined at bedside. No acute issues reported as per nursing. Receiving breathing tx this AM at time of exam, but is more awake and alert today. Explained need for at least temporary placement at a facility for long- term antibiotics prior to any return home, patient appeared to understand; still hesitant about facility, keeps asking "When am I going home?" Objective - Vital Signs/Intake and Output Vital Signs (last 24 hours): Temp Pulse Resp BP Pulse Ox 98.1 F 76 18 109/54 L 100 02/06/18 12:00 02/06/18 12:00 02/06/18 12:00 02/06/18 12:00 02/06/18 06:00 Intake and Output: 02/06/18 02/06/18 06:59 18:59 Intake Total 340 Balance 340 - Medications Medications: Current Medications Acetaminophen (Tylenol 325mg Tab) 650 mg PO Q6H PRN PRN Reason: Pain, Mild (1-3) Last Admin: 02/04/18 09:38 Dose: 650 mg Albuterol/Ipratropium (Duoneb 3 Mg/0.5 Mg (3 Ml) Ud) 3 ml IH [id number] PRN PRN Reason: Shortness of Breath Last Admin: 02/04/18 07:35 Dose: 3 ml Arformoterol Tartrate (Brovana) 15 mcg IH [id number] [facility] Last Admin: 02/06/18 08:14 Dose: 15 mcg Aspirin (Ecotrin) 81 mg PO DAILY [facility] Last Admin: 02/06/18 11:47 Dose: 81 mg Atorvastatin Calcium (Lipitor) 80 mg PO [facility] Last Admin: 02/06/18 05:27 Dose: Not Given Budesonide (Pulmicort Respules) 0.5 mg IH Q12H [facility] Last Admin: 02/06/18 08:14 Dose: 0.5 mg Duloxetine HCl (Cymbalta) 40 mg PO DAILY [facility] Last Admin: 02/06/18 11:46 Dose: 40 mg Famotidine (Pepcid) 20 mg PO [facility] Last Admin: 02/04/18 22:08 Dose: 20 mg Fenofibrate (Tricor) 145 mg PO DAILY [facility] Last Admin: 02/06/18 11:46 Dose: 145 mg Fluticasone Propionate (Flonase) 1 actuation NS DAILY PRN PRN Reason: Nasal congestion Guaifenesin (Mucinex La) 600 mg PO BID PRN PRN Reason: Cough Heparin Sodium (Porcine) (Heparin) 5,000 units SC Q12 [facility]; Protocol Last Admin: 01/26/18 15:40 Dose: Not Given Daptomycin 650 mg/ Sodium (Chloride) 100 mls @ 200 mls/hr IV Q24H [facility] Stop: 02/08/18 10:01 Last Admin: 02/06/18 12:06 Dose: 200 mls/hr Insulin Human Regular (Humulin R High) 0 units SC ACHS [facility]; Protocol Last Admin: 02/06/18 11:45 Dose: 7 units Insulin Human Regular (Humulin R) 5 units SC AC [facility] Last Admin: 02/06/18 11:45 Dose: 5 units Latanoprost (Xalatan Opht) 0 ml OU HS [facility] Last Admin: 02/04/18 22:00 Dose: Not Given Levothyroxine Sodium (Synthroid) 50 mcg PO 0600 [facility] Last Admin: 02/06/18 11:46 Dose: 50 mcg Metoprolol Tartrate (Lopressor) 25 mg PO BID [facility] Last Admin: 02/06/18 11:46 Dose: 25 mg Midodrine (Proamatine) 5 mg PO TID [facility] Last Admin: 02/06/18 11:46 Dose: 5 mg Ondansetron HCl (Zofran Inj) 4 mg IVP Q6H PRN PRN Reason: Nausea/Vomiting Last Admin: 02/02/18 20:16 Dose: 4 mg Sodium Chloride ([place] Nasal [place]) 0 ml NS Q2 PRN PRN Reason: nasal congestion. Zaleplon (Sonata) 5 mg PO HS [facility] Last Admin: 02/06/18 05:25 Dose: Not Given - Labs Labs: 02/06/18 11:30 02/06/18 11:30 PT 18.7 sec (9.0-11.5) H 01/25/18 09:00 INR 1.77 01/23/18 08:50 APTT 33.8 Seconds (25.1-36.5) 01/23/18 08:50 - Additional Findings Additional findings: - Constitutional Appears: No Acute Distress, Confused, Chronically Ill - Head Exam Head Exam: ATRAUMATIC, NORMAL INSPECTION, NORMOCEPHALIC - Eye Exam Eye Exam: EOMI (tracking staff across room), Normal appearance. absent: Conjunctival injection, Scleral icterus Pupil Exam: absent: Irregular, Unequal - ENT Exam ENT Exam: Mucous Membranes Moist, wearing venti-mask/getting breathing tx at time of exam - Neck Exam Neck Exam: Full ROM. absent: Lymphadenopathy - Respiratory Exam Respiratory Exam: Decreased Breath Sounds (mild-moderate decreased breath sounds in all buck), NORMAL BREATHING PATTERN. absent: Accessory Muscle Use, Chest Wall Tenderness, Clear to Ausculation Bilateral, Rales, Rhonchi, Wheezes - Cardiovascular Exam Cardiovascular Exam: REGULAR RHYTHM, RRR, +S1, +S2, Murmur (systolic murmur most clearly heard at left 2nd-3rd intercostal spaces). absent: Bradycardia, Tachycardia, JVD - GI/Abdominal Exam GI & Abdominal Exam: Distended (mildly distended but still soft to palpation), Soft, Normal Bowel Sounds. absent: Firm, Rigid, Tenderness, Diminished Bowel Sounds, Hyperactive Bowel Sounds, Hypoactive Bowel Sounds - Extremities Exam Extremities Exam: Pedal Edema (+1 LLE pitting edema from foot to mid-ball, RLE BKA), cool left hand to palpation with amputated L 3rd digit, dry gangrenous right 5th digit, No left calf tenderness - Neurological Exam Neurological Exam: Alert, Awake. absent: Oriented x3 (oriented to self, aware in hospital but not sure which) - Psychiatric Exam Psychiatric exam: Not agitated, anxious about going home - Skin Other than as documented in extremities, dry/warm/intact Assessment and Plan - Assessment and Plan (Free Text) Assessment: This is a 52 yo M with PMH of ESRD on HD (//Mon), CAD with ME (4 months ago), right BKA, and left third digit amputation who presents with melena and diarrhea. S/p local debridement and wound vacuum placement of the right BKA, of right 5th digit 2/2 dry gangrene, and thoracentesis with 1.2L removed. 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 Pending possible surgical intervention for L hand ischemia. Pending placement for 2+ weeks of further IV antibiotics. Plan: 1) Sepsis -MDR VRE on 1 of 2 Blood Cx from 01/28/18 -Wound care per surgery -Antibiotics per ID; currently on Daptomycin, ID recs at least 2 more weeks of antibiotics 2) Ischemia of the hands -Underwent Angiogram of RUE today, pending report -Right 5th digit pending fall off ( 2/2 gangrene) -Surgery following for possible DRIL procedure for L hand, will require being off Brilinta for at least 5 days 3) ESRD -Continue with dialysis T//Sat 4) CAD -Continue Aspirin, Metroprolol, and Atorvastatin; off Brilinta -Recs as per Dr. Erickson (Cardio) 5) DM II -well controlled on current regimen 6) Upper respiratory symptoms -Continue PRN Mucinex, Flonase, and saline nasal spray -Duonebs q6h PRN for dyspnea -Continue q12 Brovana and Pulmicort 7) Chronic conditions Hypothyroidism: continue synthroid Hyperlipidemia: continue tricor Glaucoma: continue Latanoprost drops RENATA: Continue noninvasive positive airway pressure nightly Depression: continue Sonata and Duloxetine Dispo: Telemetry, pending LTACH placement for long-term IV abx, pending possible surgical procedure for L hand ischemia Ppx: Pepcid for GI, SCD for DVT (previously on Heparin, but now on hold) Case was reviewed and discussed with attending physician, Dr. Potter <Gallo Potter - Last Filed: 02/06/18 15:47> Objective - Vital Signs/Intake and Output Vital Signs (last 24 hours): Temp Pulse Resp BP Pulse Ox 98.1 F 76 18 109/54 L 100 02/06/18 12:00 02/06/18 12:00 02/06/18 12:00 02/06/18 12:00 02/06/18 06:00 Intake and Output: 02/06/18 02/06/18 06:59 18:59 Intake Total 340 Balance 340 - Medications Medications: Current Medications Acetaminophen (Tylenol 325mg Tab) 650 mg PO Q6H PRN PRN Reason: Pain, Mild (1-3) Last Admin: 02/04/18 09:38 Dose: 650 mg Albuterol/Ipratropium (Duoneb 3 Mg/0.5 Mg (3 Ml) Ud) 3 ml IH [id number] PRN PRN Reason: Shortness of Breath Last Admin: 02/04/18 07:35 Dose: 3 ml Arformoterol Tartrate (Brovana) 15 mcg IH [id number] [facility] Last Admin: 02/06/18 08:14 Dose: 15 mcg Aspirin (Ecotrin) 81 mg PO DAILY [facility] Last Admin: 02/06/18 11:47 Dose: 81 mg Atorvastatin Calcium (Lipitor) 80 mg PO HS [facility] Last Admin: 02/06/18 05:27 Dose: Not Given Budesonide (Pulmicort Respules) 0.5 mg IH Q12H [facility] Last Admin: 02/06/18 08:14 Dose: 0.5 mg Duloxetine HCl (Cymbalta) 40 mg PO DAILY [facility] Last Admin: 02/06/18 11:46 Dose: 40 mg Famotidine (Pepcid) 20 mg PO HS [facility] Last Admin: 02/04/18 22:08 Dose: 20 mg Fenofibrate (Tricor) 145 mg PO DAILY [facility] Last Admin: 02/06/18 11:46 Dose: 145 mg Fluticasone Propionate (Flonase) 1 actuation NS DAILY PRN PRN Reason: Nasal congestion Guaifenesin (Mucinex La) 600 mg PO BID PRN PRN Reason: Cough Heparin Sodium (Porcine) (Heparin) 5,000 units SC Q12 [facility]; Protocol Last Admin: 01/26/18 15:40 Dose: Not Given Daptomycin 650 mg/ Sodium (Chloride) 100 mls @ 200 mls/hr IV Q24H [facility] Stop: 02/08/18 10:01 Last Admin: 02/06/18 12:06 Dose: 200 mls/hr Insulin Human Regular (Humulin R High) 0 units SC ACHS [facility]; Protocol Last Admin: 02/06/18 11:45 Dose: 7 units Insulin Human Regular (Humulin R) 5 units SC AC [facility] Last Admin: 02/06/18 11:45 Dose: 5 units Latanoprost (Xalatan Opht) 0 ml OU HS [facility] Last Admin: 02/04/18 22:00 Dose: Not Given Levothyroxine Sodium (Synthroid) 50 mcg PO 0600 [facility] Last Admin: 02/06/18 11:46 Dose: 50 mcg Metoprolol Tartrate (Lopressor) 25 mg PO BID [facility] Last Admin: 02/06/18 11:46 Dose: 25 mg Midodrine (Proamatine) 5 mg PO TID [facility] Last Admin: 02/06/18 15:06 Dose: 5 mg Ondansetron HCl (Zofran Inj) 4 mg IVP Q6H PRN PRN Reason: Nausea/Vomiting Last Admin: 02/02/18 20:16 Dose: 4 mg Sodium Chloride (Cedar Nasal [place]) 0 ml NS Q2 PRN PRN Reason: nasal congestion. Zaleplon (Sonata) 5 mg PO HS [facility] Last Admin: 02/06/18 05:25 Dose: Not Given - Labs Labs: 02/06/18 11:30 02/06/18 11:30 PT 18.7 sec (9.0-11.5) H 01/25/18 09:00 INR 1.77 01/23/18 08:50 APTT 33.8 Seconds (25.1-36.5) 01/23/18 08:50 Assessment and Plan - Assessment and Plan (Free Text) Plan: Pt seen and examined. I have reviewed the note of the medical clerical assistant and agree with it. I have discussed the assessment and plan with the resident. I have reviewed the patient's labs and medications. Pt with significant PAD in the upper extremities. Waiting for surgery input. Will need to continue with HD. Spoke to mom about the case. May need LTACH to finish IV Abx. Spoke to case resolution specialist about D/C planning.
--- NOTE | 2018-02-06 19:00 | PN ---
DATE: 02/06/2018 This note is in addition to dictated by nurse practitioner. REASON FOR CONSULTATION AND FOLLOWUP: Cardiac evaluation, history of coronary artery disease, history of peripheral arterial disease, and history of pacemaker. SUBJECTIVE: The patient is stable, discussed with the patient's mom, Leonard Berger, about the patient's condition. In summary, this is a 52-year-old male with past medical history of diabetes, very portent diabetes with end-organ damage including diabetic retinopathy, nephropathy; end-stage renal disease, on dialysis; multiple coronary stents; history of severe PAD, status post amputation, right below-knee amputation secondary to gangrene; status post amputation of left middle finger; status post gangrene of the right small finger (pinky). 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 Echo was ordered by resident and was canceled because of the previous echo was read was endocarditis, so a LASHAWN was done and compared from three years ago. The patient has end-stage renal disease and a calcification of aortic and mitral valve that may mix the vegetation, but no changes from last two to three years echo, so echo was canceled. Echo was canceled because no new vegetation noted in the LASHAWN. If index was suspicious high for endocarditis, I suggest to treat as endocarditis because regular transthoracic echo will not yield for endocarditis because the patient has calcification of both aortic and mitral valve, which was read both in [place] and here by the physician as endocarditis, but when we compare to the LASHAWN from the previous three years, there was no significant change. Also, discussed with the mother who wanted to take the patient to the [facility] upon discharge. I told her that the patient needs to be accepting physician before we transfer to the [facility]. The only way to take is when the patient is discharged stable and can be readmitted there. Discussed with Dr. Laguna. Again, this note is in addition to dictated by nurse practitioner. We will also discuss it with the patient's mother and update condition. The patient's mom's telephone number [phone]. So we will cancel the regular echo. Jarred Erickson MD
--- NOTE | 2018-02-06 19:19 | PN ---
DATE: 02/06/2018 SUBJECTIVE: The patient is in bed, was seen earlier today, in no acute distress. PHYSICAL EXAMINATION: VITAL SIGNS: Temperature of 97, blood pressure is 109/50, respiratory rate of 18. HEENT: Unremarkable. NECK: Supple. LUNGS: Decreased breath sounds. HEART: Normal S1, S2. ABDOMEN: Soft. LABORATORY DATA: Reveals a white count of 8000, hemoglobin of 8, platelets of 63. Chemistries reveals a BUN of 14, creatinine of 2.5. Serology is noted. Microbiology is noted. ASSESSMENT AND PLAN: He is a 52-year-old male who was seen earlier today with vancomycin-resistant Enterococcus bacteremia, possible midline catheter infection rule out implantable cardioverter-defibrillator infection, sepsis secondary to Serratia bacteremia with right stump cellulitis and a history of Guerline glabrata fungemia and currently on daptomycin for vancomycin-resistant Enterococcus bacteremia with initial Serratia bacteremia. Review of orders reveals the daptomycin to be active and the repeat blood cultures from 01/30/2018 are negative, which makes the first day of therapy, today is day #8 of daptomycin and would complete at least 21 days, eight of 21 days. Jaspreet Forbes MD
[2018-02-06] MEDS ORDERED: Dextrose 50% SYRINGE Inj (50 ml) ONE (22:00)
[2018-02-06] MEDS: Latanoprost 2.5 ml Opht Soln OU SCH (22:19)
--- NOTE | 2018-02-06 23:30 | PN ---
DATE: 02/06/2018 PULMONARY PROGRESS NOTE REFERRING PHYSICIAN: Dr. Potter SUBJECTIVE: The patient is lying on the bed, having dinner. Night was unremarkable. No headache. No rhinitis. Not much cough. Short of breath with exertion. No chest pain. No abdominal pain. No diarrhea. Still having limb discomfort. OBJECTIVE: GENERAL: In no acute distress. VITAL SIGNS: Temperature is 98, heart rate is 60, respiratory rate is 18, blood pressure is 94/46, and pulse ox 100% on room air. HEENT: Moist mucous membrane. Crowded airway. Mallampati score is 4. NECK: Supple. No JVD. LUNGS: Has a fair airflow with few rhonchi. HEART: S1 and S2. ABDOMEN: Soft and nontender. No organomegaly. EXTREMITIES: Has a right leg BKA dressing. Right hand fifth digit is ischemic. Left hand third digit been amputated, has a dressing. NEUROLOGIC: Awake and alert, follows simple command. MEDICATIONS: He is on Brovana inhaled twice a day, Cymbalta 40 mg daily, daptomycin 650 mg daily, DuoNeb every 6 hours p.r.n., Ecotrin 81 mg daily, Flonase one spray to each nostril daily, heparin 5000 units subcutaneously every 12 hours, Lipitor 80 mg daily, metoprolol tartrate 25 mg twice a day, Mucinex LA 600 mg twice a day p.r.n., Pepcid 20 mg daily, midodrine 5 mg three times a day, Pulmicort inhaled twice a day, Sonata 5 mg at bedtime, Synthroid 50 mcg daily, TriCor 145 mg daily, Tylenol p.r.n. basis, and Zofran p.r.n. basis. LABORATORY DATA: Shows hemoglobin 8.5, hematocrit 27, WBC 8, and platelet count is 63,000. Sodium 137, potassium 4.4, chloride 100, bicarbonate 30, BUN is 14, creatinine 2.5, glucose is 194, calcium is 7.7, and total bili 1.4. AST 103, ALT 34, alk phos is 173, and albumin is 2.2. Microbiology; repeat culture has been negative. Pleural fluid, there is no growth. IMPRESSION AND PLAN: Resolving bacteremia; had an infected stump of the right amputation site; chronic obstructive lung disease; obstructive sleep apnea syndrome; cardiomyopathy; coronary artery disease; cardiac arrhythmia, requiring pacemaker; renal failure, dialysis dependent; diabetes; severe peripheral vascular disease, requiring right below-knee amputation; also had left hand third digit amputated; right hand fifth digit is ischemic; sleep apnea syndrome; being followed by multiple speciality including Surgery, Nephrology, Infectious Disease, and Cardiology. Pulmonary point of view, has sleep apnea syndrome. Encouraged continuous positive airway pressure use. Keep head at 45 degrees. Bronchodilator, gastric prophylaxis, could not anticoagulate her because of recurrent bleeding, requiring transfusion. Overall poor prognosis. Thank you and we will follow with you. Jarred Escalera MD
[2018-02-07] MEDS ORDERED: Dextrose 50% SYRINGE Inj (50 ml) IVP ONE (00:14)
[2018-02-07] MEDS ORDERED: Dextrose 50% SYRINGE Inj (50 ml) ONE (00:23)
[2018-02-07] MEDS: Levothyroxine 25 MCG TAB PO SCH (05:48)
[2018-02-07 06:44] VITALS: RESP 19; TEMP 98.4; O2SAT 96
--- NOTE | 2018-02-07 07:09 | CP.PCM.PN ---
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 Erickson Objective - Vital Signs/Intake and Output Vital Signs (last 24 hours): Temp Pulse Resp BP Pulse Ox 98.4 F 79 19 101/50 L 96 02/07/18 06:00 02/07/18 06:00 02/07/18 06:00 02/07/18 06:00 02/07/18 06:00 - Medications Medications: Current Medications Acetaminophen (Tylenol 325mg Tab) 650 mg PO Q6H PRN PRN Reason: Pain, Mild (1-3) Last Admin: 02/07/18 05:50 Dose: 650 mg Albuterol/Ipratropium (Duoneb 3 Mg/0.5 Mg (3 Ml) Ud) 3 ml IH [id number] PRN PRN Reason: Shortness of Breath Last Admin: 02/04/18 07:35 Dose: 3 ml Arformoterol Tartrate (Brovana) 15 mcg IH [id number] [facility] Last Admin: 02/06/18 20:27 Dose: 15 mcg Aspirin (Ecotrin) 81 mg PO DAILY [facility] Last Admin: 02/06/18 11:47 Dose: 81 mg Atorvastatin Calcium (Lipitor) 80 mg PO [facility] Last Admin: 02/06/18 22:12 Dose: 80 mg Budesonide (Pulmicort Respules) 0.5 mg IH Q12H [facility] Last Admin: 02/06/18 20:28 Dose: 0.5 mg Duloxetine HCl (Cymbalta) 40 mg PO DAILY [facility] Last Admin: 02/06/18 11:46 Dose: 40 mg Famotidine (Pepcid) 20 mg PO HS [facility] Last Admin: 02/06/18 22:13 Dose: 20 mg Fenofibrate (Tricor) 145 mg PO DAILY [facility] Last Admin: 02/06/18 11:46 Dose: 145 mg Fluticasone Propionate (Flonase) 1 actuation NS DAILY PRN PRN Reason: Nasal congestion Guaifenesin (Mucinex La) 600 mg PO BID PRN PRN Reason: Cough Heparin Sodium (Porcine) (Heparin) 5,000 units SC Q12 [facility]; Protocol Last Admin: 01/26/18 15:40 Dose: Not Given Daptomycin 650 mg/ Sodium (Chloride) 100 mls @ 200 mls/hr IV Q24H [facility] Stop: 02/08/18 10:01 Last Admin: 02/06/18 12:06 Dose: 200 mls/hr Insulin Human Regular (Humulin R High) 0 units SC ACHS [facility]; Protocol Last Admin: 02/06/18 22:12 Dose: Not Given Insulin Human Regular (Humulin R) 5 units SC AC [facility] Last Admin: 02/06/18 17:05 Dose: Not Given Latanoprost (Xalatan Opht) 0 ml OU HS [facility] Last Admin: 02/06/18 22:19 Dose: 2.5 ml Levothyroxine Sodium (Synthroid) 50 mcg PO 0600 [facility] Last Admin: 02/07/18 05:48 Dose: 50 mcg Metoprolol Tartrate (Lopressor) 25 mg PO BID [facility] Last Admin: 02/06/18 18:13 Dose: Not Given Midodrine (Proamatine) 5 mg PO TID [facility] Last Admin: 02/06/18 18:13 Dose: 5 mg Ondansetron HCl (Zofran Inj) 4 mg IVP Q6H PRN PRN Reason: Nausea/Vomiting Last Admin: 02/02/18 20:16 Dose: 4 mg Sodium Chloride ([place] Nasal [place]) 0 ml NS Q2 PRN PRN Reason: nasal congestion. Zaleplon (Sonata) 5 mg PO HS [facility] Last Admin: 02/06/18 22:19 Dose: Not Given - Labs Labs: 02/06/18 11:30 02/06/18 11:30 PT 18.7 sec (9.0-11.5) H 01/25/18 09:00 INR 1.77 01/23/18 08:50 APTT 33.8 Seconds (25.1-36.5) 01/23/18 08:50 - Constitutional Appears: Non-toxic, No Acute Distress - Head Exam Head Exam: NORMAL INSPECTION, NORMOCEPHALIC - ENT Exam ENT Exam: Mucous Membranes Moist - Respiratory Exam Respiratory Exam: Decreased Breath Sounds, NORMAL BREATHING PATTERN - Cardiovascular Exam Cardiovascular Exam: REGULAR RHYTHM, +S1, +S2 Additional comments: Telemetry NSR 70's PPM - GI/Abdominal Exam GI & Abdominal Exam: Soft, Normal Bowel Sounds - Exam Additional comments: ESRD on hemodialysis - Extremities Exam Additional comments: right BKA stump with dressing left hand wrapped with kerlex, middle finger amputation Left AV shunt positive bruit - Neurological Exam Neurological Exam: Alert, Awake - Psychiatric Exam Psychiatric exam: Normal Affect, Normal Mood - Skin Skin Exam: Dry, Normal Color, Warm Assessment and Plan - Assessment and Plan (Free Text) Assessment: A 52 year old male obese who came in to the ER due to diarrhea for the past week prior to admission. History of very brittle insulin dependent diabetes mellitus, diabetic neuropathy,diabetic retinopathy,nephropathy,end stage renal disease, on hemodialysis 3x a week, left arm AV shunt /fistula, hypertension, hyperlipidemia,TIA, coronary artery disease with stents,resistant to Plavix, on Brilinta. severe peripheral vascular disease, post right below knee amputation, left middle finger amputation,TIA, PPM for sick sinus syndrome. subdural h ematoma due to fall, COPD, pancreatitis. No evidence of myocardial infarction. Troponin negative, Positive for C-difficile.Right BKA stump positive for VRE. Blood culture from 01/17 positive for serratia, repeat blood culture done 01/18/18, so far no growth after [address] of head done to rule out bleeding. CT showed no hemorrhage/bleeding.Refusing CPAP/BIPAP at night. Had debridement of right BKA stump with wound VAC. 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 Post right thoracenthesis for pleural effusion (1200 cc). Transferred to telemetry.Post upper extremity angiogram yesterday,severe disease of the right hand involving the metacarpal arteries and digital arteries, severe involving 5th digit. Proximal arteries of the right upper extremity widely open. On contact isolation for VRE Plan: Comfortable, lying in bed, no distress On contact isolation for VRE Continue IV antibiotics as per ID Blood pressure stable Heart rate stable Cardiac status stable Nutritional support Glucose controlled,no hypoglycemia On ASA 81 mg daily,Lipitor 80 mg daily, Tricor 145 mg daily,Lopressor 25 mg BID, [place] 5 mg TID, Synthroid 50 mcg daily,Heparin 5000 units SC every 12 hours Continue current treatment Continue current medications Physical therapy Discharge planning Chart reviewed Will follow up Plan and treatment discussed with Dr. Erickson
[2018-02-07] MEDS: Budesonide 0.5 mg/2 ml Inhal Susp UD IH SCH (07:40)
[2018-02-07] MEDS: Arformoterol 15 mcg/2 ml Inh Sol IH SCH (07:40)
--- NOTE | 2018-02-07 07:48 | PN ---
DATE: 02/07/2018 SUBJECTIVE: The patient is in bed, in no acute distress, nontoxic. No fevers and chills. No nausea, no vomiting. Appears to be comfortable. PHYSICAL EXAMINATION: VITAL SIGNS: On exam, temperature is 98, blood pressure is 111/50, respiratory rate of 18, heart rate of 66. HEENT: Examination of HEENT is unremarkable. NECK: Supple. LUNGS: Have decreased breath sounds. HEART: Normal S1, S2. ABDOMEN: Soft. LABORATORY DATA: Laboratory examination reveals a white count of 8000, hemoglobin of 8. Chemistries reveals the patient's creatinine is 2.5. Toxicology is noted and serology is noted. Microbiology reveals the VRE in the blood on 01/28/2018. ASSESSMENT AND PLAN: A 52-year-old male who was seen earlier today, vancomycin-resistant Enterococcus bacteremia, possible midline catheter infection. Rule out implantable cardioverter-defibrillator infection with sepsis secondary to Serratia bacteremia secondary to right stump cellulitis. History of Guerline glabrata fungemia, currently on daptomycin for the vancomycin-resistant Enterococcus bacteremia. Today is day #9 of daptomycin, would complete at least 21 days and would recommend repeating the echocardiogram therapy another week or two. We will follow closely with you. Jaspreet Forbes MD
[2018-02-07 07:49] LABS: HEMOGLOBIN 8.6 g/dL (14.0-18.0); MEAN CELL VOLUME 98.6 fl (80.0-105.0); MEAN CORPUSCULAR HEMOGLOBIN 30.4 pg (25.0-35.0); MEAN CORPUSCULAR HGB CONC 30.8 g/dl (31.0-37.0); MEAN PLATELET VOLUME 12.6 fl (7.0-11.0); RBC 2.83 10^6/uL (3.5-6.1); RED CELL DISTRIBUTION WIDTH 20.3 % (11.5-14.5); WHITE BLOOD COUNT 7.5 10^3/uL (4.5-11.0)
[2018-02-07] MEDS: Insulin Reg-HIGH-Coverage SC SCH ×3 (09:08→16:31)
[2018-02-07] MEDS: Insulin Regular 1 UNITS/0.01 ML ML SC SCH (09:10)
--- NOTE | 2018-02-07 10:13 | CP.PCM.PN ---
Objective - Vital Signs/Intake and Output Vital Signs (last 24 hours): Temp Pulse Resp BP Pulse Ox 98.4 F 79 19 101/50 L 96 02/07/18 06:00 02/07/18 06:00 02/07/18 06:00 02/07/18 06:00 02/07/18 06:00 - Medications Medications: Current Medications Acetaminophen (Tylenol 325mg Tab) 650 mg PO Q6H PRN PRN Reason: Pain, Mild (1-3) Last Admin: 02/07/18 05:50 Dose: 650 mg Albuterol/Ipratropium (Duoneb 3 Mg/0.5 Mg (3 Ml) Ud) 3 ml IH [id number] PRN PRN Reason: Shortness of Breath Last Admin: 02/04/18 07:35 Dose: 3 ml Arformoterol Tartrate (Brovana) 15 mcg IH [id number] [facility] Last Admin: 02/07/18 07:40 Dose: 15 mcg Aspirin (Ecotrin) 81 mg PO DAILY [facility] Last Admin: 02/06/18 11:47 Dose: 81 mg Atorvastatin Calcium (Lipitor) 80 mg PO HS [facility] Last Admin: 02/06/18 22:12 Dose: 80 mg Budesonide (Pulmicort Respules) 0.5 mg IH Q12H [facility] Last Admin: 02/07/18 07:40 Dose: 0.5 mg Duloxetine HCl (Cymbalta) 40 mg PO DAILY [facility] Last Admin: 02/06/18 11:46 Dose: 40 mg Famotidine (Pepcid) 20 mg PO HS [facility] Last Admin: 02/06/18 22:13 Dose: 20 mg Fenofibrate (Tricor) 145 mg PO DAILY [facility] Last Admin: 02/06/18 11:46 Dose: 145 mg Fluticasone Propionate (Flonase) 1 actuation NS DAILY PRN PRN Reason: Nasal congestion Guaifenesin (Mucinex La) 600 mg PO BID PRN PRN Reason: Cough Heparin Sodium (Porcine) (Heparin) 5,000 units SC Q12 [facility]; Protocol Last Admin: 01/26/18 15:40 Dose: Not Given Daptomycin 650 mg/ Sodium (Chloride) 100 mls @ 200 mls/hr IV Q24H [facility] Stop: 02/08/18 10:01 Last Admin: 02/06/18 12:06 Dose: 200 mls/hr Insulin Human Regular (Humulin R High) 0 units SC ACHS [facility]; Protocol Last Admin: 02/07/18 09:08 Dose: Not Given Latanoprost (Xalatan Opht) 0 ml OU HS [facility] Last Admin: 02/06/18 22:19 Dose: 2.5 ml Levothyroxine Sodium (Synthroid) 50 mcg PO 0600 [facility] Last Admin: 02/07/18 05:48 Dose: 50 mcg Metoprolol Tartrate (Lopressor) 25 mg PO BID [facility] Last Admin: 02/06/18 18:13 Dose: Not Given Midodrine (Proamatine) 5 mg PO TID [facility] Last Admin: 02/06/18 18:13 Dose: 5 mg Ondansetron HCl (Zofran Inj) 4 mg IVP Q6H PRN PRN Reason: Nausea/Vomiting Last Admin: 02/02/18 20:16 Dose: 4 mg Sodium Chloride (Winkler Nasal Simpson) 0 ml NS Q2 PRN PRN Reason: nasal congestion. Zaleplon (Sonata) 5 mg PO HS [facility] Last Admin: 02/06/18 22:19 Dose: Not Given - Labs Labs: 02/07/18 07:40 02/07/18 07:40 PT 18.7 sec (9.0-11.5) H 01/25/18 09:00 INR 1.77 01/23/18 08:50 APTT 33.8 Seconds (25.1-36.5) 01/23/18 08:50
--- NOTE | 2018-02-07 10:14 | CP.PCM.DIS ---
<Jose Huertas - Last Filed: 02/07/18 18:44> Provider - Provider Date of Admission: 01/16/18 08:19 Attending physician: Gallo Potter MD Primary care physician: Gallo Potter MD Consults: Cardio: Dre Pulm: Lali Palliative: Paramonte GI: Anabelle Surgery: Renan Galaviz Surgery: Karishma ID: Boghossian Heme-onc: Alexandra Psych: [id number] IR: Kingsley Time Spent in preparation of Discharge (in minutes): 45 Diagnosis - Discharge Diagnosis (1) VRE (vancomycin resistant enterococcus) culture positive Status: Acute Priority: High (2) ESRD on hemodialysis Status: Chronic Priority: High (3) S/P BKA (below knee amputation) unilateral Status: Chronic Priority: Medium (4) Sepsis Status: Resolved Priority: Medium Hospital Course - Lab Results Lab Results: Micro Results 01/30/18 20:55 Other: Please Indicate Mycobacterial Culture - Preliminary 01/30/18 20:55 Pleural Fluid Gram Stain - Final 01/30/18 20:55 Pleural Fluid Anaerobic Culture - Final NO ANAEROBES ISOLATED. 01/30/18 20:55 Pleural Fluid Body Fluid Culture - Final No growth. 01/30/18 20:55 Pleural Fluid Fungal Culture - Preliminary 01/30/18 12:00 Blood-Venous Blood Culture - Final NO GROWTH AFTER 5 DAYS 01/30/18 12:00 Blood-Venous Gram Stain - Final TEST NOT PERFORMED 01/30/18 12:30 Blood-Venous Blood Culture - Final NO GROWTH AFTER 5 DAYS 01/30/18 12:30 Blood-Venous Gram Stain - Final TEST NOT PERFORMED 01/28/18 14:30 Blood-Venous Blood Culture - Final NO GROWTH AFTER 5 DAYS 01/28/18 14:30 Blood-Venous Gram Stain - Final TEST NOT PERFORMED 01/28/18 14:45 Blood-Venous S.aureus & Coag-Neg Staph PNA FISH - Final 01/28/18 14:45 Blood-Venous Blood Culture - Final Vancomycin Resistant E.faecium 01/28/18 14:45 Blood-Venous Gram Stain - Final 01/27/18 20:04 Nose MRSA Culture (Admit) - Final MRSA NOT DETECTED 01/23/18 19:10 Other: Please Indicate Gram Stain - Final 01/23/18 19:10 Other: Please Indicate Anaerobic Culture - Final NO ANAEROBES ISOLATED. 01/23/18 19:10 Other: Please Indicate Wound Culture - Final Serratia Marcescens 01/18/18 12:20 Blood Blood Culture - Final NO GROWTH AFTER 5 DAYS 01/18/18 12:20 Blood Gram Stain - Final TEST NOT PERFORMED 01/18/18 11:35 Blood Blood Culture - Final NO GROWTH AFTER 5 DAYS 01/18/18 11:35 Blood Gram Stain - Final TEST NOT PERFORMED 01/17/18 09:55 Blood-Venous Blood Culture - Final Serratia Marcescens 01/17/18 09:55 Blood-Venous Gram Stain - Final 01/17/18 10:30 Blood-Venous Blood Culture - Final Serratia Marcescens 01/17/18 10:30 Blood-Venous Gram Stain - Final 01/16/18 19:48 Leg - Right Gram Stain - Final 01/16/18 19:48 Leg - Right Wound Culture - Final Klebsiella Oxytoca Serratia Marcescens Vancomycin Resistant E.faecium 01/16/18 08:30 Rectal Fluid VRE Culture - Final 01/16/18 08:30 Stool C. difficile Antigen & Toxins A,B - Final Most Recent Lab Values WBC 7.5 10^3/uL (4.5-11.0) 02/07/18 07:40 RBC 2.83 10^6/uL (3.5-6.1) L 02/07/18 07:40 Hgb 8.6 g/dL (14.0-18.0) L 02/07/18 07:40 Hct 27.9 % (42.0-52.0) L 02/07/18 07:40 MCV 98.6 fl (80.0-105.0) 02/07/18 07:40 MCH 30.4 pg (25.0-35.0) 02/07/18 07:40 MCHC 30.8 g/dl (31.0-37.0) L 02/07/18 07:40 RDW 20.3 % (11.5-14.5) H 02/07/18 07:40 Plt Count 70 10^3/uL (120.0-450.0) L 02/07/18 07:40 MPV 12.6 fl (7.0-11.0) H 02/07/18 07:40 Gran % 73.5 % (50.0-68.0) H 02/06/18 11:30 Lymph % (Auto) 13.6 % (22.0-35.0) L 02/06/18 11:30 [place] % (Auto) 12.7 % (1.0-6.0) H 02/06/18 11:30 Eos % (Auto) 0.1 % (1.5-5.0) L 02/06/18 11:30 Baso % (Auto) 0.1 % (0.0-3.0) 02/06/18 11:30 Gran # 5.84 (1.4-6.5) 02/06/18 11:30 Lymph # (Auto) 1.1 (1.2-3.4) L 02/06/18 11:30 [place] # (Auto) 1.0 (0.1-0.6) H 02/06/18 11:30 Eos # (Auto) 0.0 (0.0-0.7) 02/06/18 11:30 Baso # (Auto) 0.01 K/mm3 (0.0-2.0) 02/06/18 11:30 Neutrophils % (Manual) 83 % (50.0-70.0) H 01/31/18 06:20 Band Neutrophils % 1 % (0-2) 01/31/18 06:20 Lymphocytes % (Manual) 5 % (22.0-35.0) L 01/31/18 06:20 Atypical Lymphs % 1 % (0.0-0.0) H 01/24/18 15:45 Monocytes % (Manual) 11 % (1.0-6.0) H 01/31/18 06:20 Nucleated RBC % 1 % 01/18/18 10:00 Platelet Evaluation Low (NORMAL) 01/24/18 15:45 Large Platelets Present 01/18/18 10:00 Hypochromasia 1+ 01/18/18 10:00 Macrocytosis (manual) 2+ 01/18/18 10:00 Retic Count 2.99 % (0.5-1.5) H 01/25/18 09:00 PT 18.7 sec (9.0-11.5) H 01/25/18 09:00 INR 1.77 01/23/18 08:50 APTT 33.8 Seconds (25.1-36.5) 01/23/18 08:50 Mix PT Baseline 12.2 sec (< OR = 11.5) H 01/25/18 09:00 PT Incubation Time Corrected 01/25/18 09:00 Lupus Anticoag PTT Mix Corrected 01/25/18 09:00 Protein C Antigen 86 % (70-140) 01/24/18 15:45 Protein C Activity 96 % (70-180) 01/24/18 15:45 Protein S Activity 66 % (70-150) L 01/24/18 15:45 Protein S Antigen 96 % (70-140) 01/24/18 15:45 Factor V see note 01/24/18 15:45 Factor V Activity 60 % (65-150) L 01/24/18 15:45 pCO2 40 mm/Hg (35-45) 01/29/18 09:00 pO2 150.0 mm/Hg (80-100) H 01/29/18 09:00 HCO3 24.2 mmol/L (21-28) 01/29/18 09:00 ABG pH 7.39 (7.35-7.45) 01/29/18 09:00 ABG Total CO2 25.4 mmol.L (22-28) 01/29/18 09:00 ABG O2 Saturation 99.1 % (95-98) H 01/29/18 09:00 ABG O2 Content 12.5 ML/dl (15-23) L 01/29/18 09:00 ABG Base Excess -0.7 mmol/L (-2.0-3.0) 01/29/18 09:00 ABG Hemoglobin 8.9 g/dL (11.7-17.4) L 01/29/18 09:00 ABG Carboxyhemoglobin 1.8 % (0.5-1.5) H 01/29/18 09:00 POC ABG HHb (Measured) 0.9 % (0-5) 01/29/18 09:00 ABG Methemoglobin 0.4 % (0.0-3.0) 01/29/18 09:00 ABG O2 Capacity 12.6 mL/dl (16-24) L 01/29/18 09:00 VBG pH 7.37 (7.32-7.43) 01/16/18 04:25 VBG pCO2 56.0 (40-60) 01/16/18 04:25 VBG HCO3 32.4 mmol/l (21-28) H 01/16/18 04:25 VBG Total CO2 34.1 mmol.L (22-28) H 01/16/18 04:25 VBG O2 Sat (Calc) 90.8 % (40-65) H 01/16/18 04:25 VBG Base Excess 5.5 mmol/L (0.0-2.0) H 01/16/18 04:25 VBG Potassium 4.1 mmol/L (3.6-5.2) 01/16/18 04:25 Hgb O2 Saturation 97.0 % (95.0-98.0) 01/29/18 09:00 Sodium 138.0 mmol/L (132-148) 01/16/18 04:25 Chloride 101.0 mmol/L (98-107) 01/16/18 04:25 Glucose 259 mg/dl (75-110) H 01/16/18 04:25 Lactate 2.9 mmol/L (0.7-2.1) H 01/16/18 04:25 FiO2 32.0 % 01/29/18 09:00 Sodium 138 mmol/L (132-148) 02/07/18 07:40 Potassium 4.8 mmol/L (3.6-5.0) 02/07/18 07:40 Chloride 100 mmol/L (98-107) 02/07/18 07:40 Carbon Dioxide 29 mmol/L (21-33) 02/07/18 07:40 Anion Gap 13 (10-20) 02/07/18 07:40 BUN 19 mg/dL (7-21) 02/07/18 07:40 Creatinine 3.3 mg/dl (0.8-1.5) H 02/07/18 07:40 Est GFR ( Amer) 24 02/07/18 07:40 Est GFR (Non-Af Amer) 20 02/07/18 07:40 POC Glucose (mg/dL) 153 mg/dL (65-110) H 02/07/18 06:17 Random Glucose 152 mg/dL (70-110) H 02/07/18 07:40 Hemoglobin A1c 6.8 % (4.2-6.5) H 01/17/18 06:15 Calcium 8.0 mg/dL (8.4-10.5) L 02/07/18 07:40 Phosphorus 4.7 mg/dL (2.5-4.5) H 02/07/18 07:40 Magnesium 2.0 mg/dL (1.7-2.2) 02/07/18 07:40 Ferritin 921.0 ng/mL 01/25/18 09:00 Total Bilirubin 1.4 mg/dL (0.2-1.3) H 02/06/18 11:30 Direct Bilirubin 1.0 mg/dL (0.0-0.4) H 01/25/18 09:00 AST 103 U/L (17-59) H 02/06/18 11:30 ALT 34 U/L (7-56) 02/06/18 11:30 Alkaline Phosphatase 173 U/L (38-126) H 02/06/18 11:30 Troponin I 0.45 ng/mL H* D 01/30/18 05:31 NT-Pro-B Natriuret Pep 48890 pg/mL (0-450) H 01/16/18 01:05 Total Protein 5.8 g/dL (5.8-8.3) 02/06/18 11:30 Albumin 2.2 g/dL (3.0-4.8) L 02/06/18 11:30 Globulin 3.6 gm/dL 02/06/18 11:30 Albumin/Globulin Ratio 0.6 (1.1-1.8) L 02/06/18 11:30 Triglycerides 97 mg/dL (35-160) 01/17/18 06:15 Cholesterol < 50 mg/dL (130-200) L 01/17/18 06:15 LDL Cholesterol Direct < 30 mg/dL (0-129) 01/17/18 06:15 HDL Cholesterol 8 mg/dL (29-60) L 01/17/18 06:15 Vitamin B12 > 1000 pg/mL (239-931) H 01/25/18 09:00 Folate 6.5 ng/mL 01/25/18 09:00 Procalcitonin 1.07 NG/ML (0.19-0.49) H 01/29/18 07:00 TSH 3rd Generation 6.56 mIU/mL (0.46-4.68) H 01/24/18 15:45 Cortisol AM Sample 24.8 ug/dL (4.46-22.7) H 01/30/18 05:31 Venous Blood Potassium 4.1 mmol/L (3.6-5.2) 01/16/18 04:25 Fluid Source Pleural 01/30/18 20:55 Fluid Appearance Clear (CLEAR) 01/30/18 20:55 Fluid pH 7 01/30/18 21:41 Fluid WBC 266.0 /uL (0.0-300.0) 01/30/18 20:55 Fluid RBC 133.1 /uL (0.0-0.0) H 01/30/18 20:55 Fluid Tot Cell Count 100 (0-0) H 01/30/18 20:55 Fluid Neutrophils 21.1 % (0-0) H 01/30/18 20:55 Fluid Lymphocytes 78.9 % (0-0) H 01/30/18 20:55 Fld Monocyte/Macrophag 0 % (0-0) 01/30/18 20:55 Fluid Comment Yellow 01/30/18 20:55 Pleural Total Protein 1.6 g/dL 01/30/18 20:55 Pleural LDH 141 U/L 01/30/18 20:55 Pleural Glucose 140 mg/dL 01/30/18 20:55 Opiates (GC/MS) negative 01/23/18 06:00 Methadone (GC/MS) negative 01/23/18 06:00 Propoxyphenes negative 01/23/18 06:00 Barbiturates negative 01/23/18 06:00 Phencyclidine (PCP) negative 01/23/18 06:00 Amphetamines negative 01/23/18 06:00 Benzodiazepines negative 01/23/18 06:00 Cocaine & Metabolite negative 01/23/18 06:00 Marijuana negative 01/23/18 06:00 Drugs of Abuse Comment See note 01/23/18 06:00 Hep Bs Antigen Negative (NEGATIVE) 01/16/18 17:30 Hep Bs Antibody Positive (NEGATIVE) 01/16/18 17:30 Hep B Core Total Ab Non reactive (Non Reactive) 01/16/18 17:30 Prothrombin Mut Interp see note 01/25/18 09:00 Prothrombin Gene Mutate see note 01/25/18 09:00 Prothromb Gene Review see note 01/25/18 09:00 Blood Type B POSITIVE 01/27/18 11:45 Antibody Screen Negative 01/27/18 11:45 Crossmatch See Detail 01/27/18 11:45 BBK History Checked Patient has bt 01/27/18 11:45 - Hospital Course Hospital Course: This is a 52 yo M with PMH notable for ESRD, CAD with CT 4 months ago, right BKA, and left third digit amputation who presented with melena and diarrhea. While here, he was found to have blood cultures positive for MDR VRE, with infected right BKA as the suspected source. S/p thoracentesis by IR with removal of 1200cc. While here, he was also seen by Surgery, Vascular Surgery, ID, Psych, Palliative, Cardio, Heme-onc, and Pulm. As per ID, needs 12 more days of IV antibiotics (Daptomycin) for his infection. As per Surgery, right 5th digit 2/2 gangrene, allow to fall off. As per Vascular Surgery, DRIL procedure may not alleviate left hand ischemia as he also exhibits right hand ischemia and does not have an AV fisutla there, so there is some component outside of vascular steal causing the ischemia. As per Cardio, as patient is no longer pending surgical procedure, can restart his Brilinta. As per Pulm, continue Bipap and head of bed elevated to 45 degrees. As per Heme-onc, likely nutritional coagulopathy +/- factor deficiency, transfusion support PRN. Today, patient is receiving breathing tx at time of exam. He is now amenable to LTACH for long-term antibiotics prior to returning home, as his mother does not feel comfortable infusing IV antibiotics at home. His brilinta was restarted as per Cardio. Due to acute episode of hypoglycemia overnight, home insulin dosing was discontinued, and he was placed on low-dose sliding scale only. He will continue to go on HD 3x per week. All other home medications were continued. He was then discharged to the LTACH. Reviewed and discussed with attending, Dr. Potter. Discharge Exam - Head Exam Head Exam: NORMAL INSPECTION, NORMOCEPHALIC - Additional Findings Additional findings: - Constitutional Appears: No Acute Distress, Chronically Ill - Head Exam Head Exam: ATRAUMATIC, NORMAL INSPECTION, NORMOCEPHALIC - Eye Exam Eye Exam: EOMI (tracking staff across room), Normal appearance. absent: Conjunctival injection, Scleral icterus Pupil Exam: absent: Irregular, Unequal - ENT Exam ENT Exam: Mucous Membranes Moist, wearing venti-mask/getting breathing tx at time of exam - Neck Exam Neck Exam: Full ROM. absent: Lymphadenopathy - Respiratory Exam Respiratory Exam: Decreased Breath Sounds (mild decreased breath sounds in all buck), NORMAL BREATHING PATTERN. absent: Accessory Muscle Use, Chest Wall Tenderness, Clear to Ausculation Bilateral, Rales, Rhonchi, Wheezes - Cardiovascular Exam Cardiovascular Exam: REGULAR RHYTHM, RRR, +S1, +S2, Murmur (systolic murmur most clearly heard at left 2nd-3rd intercostal spaces). absent: Bradycardia, Tachycardia, JVD - GI/Abdominal Exam GI & Abdominal Exam: Distended (mildly distended but still soft to palpation), Soft, Normal Bowel Sounds. absent: Firm, Rigid, Tenderness, Diminished Bowel Sounds, Hyperactive Bowel Sounds, Hypoactive Bowel Sounds - Extremities Exam Extremities Exam: Pedal Edema (+1 LLE pitting edema from foot to mid-ball, RLE BKA), cool left hand to palpation with amputated L 3rd digit, dry gangrenous right 5th digit, No left calf tenderness - Neurological Exam Neurological Exam: Alert, Awake. absent: Oriented x3 (oriented to self, aware in hospital but not sure which) - Psychiatric Exam Psychiatric exam: Not agitated or anxious - Skin Other than as documented in extremities, dry/warm/intact Discharge Plan - Discharge Medications Prescriptions: RX: DAPTOmycin [Cubicin] 650 mg IV Q24H #12 vial RX: Insulin Human Regular-LOW [HumuLIN R LOW] See Protocol IV ACHS 30 Days ml - Follow Up Plan Condition: STABLE Disposition: TRANSF TO SNF Instructions: Rotavirus Infection (DC), Rotavirus Infection (GEN), Renal Failure Diet (DC), Leukocytosis (DC), Leukocytosis (GEN), Nutrition Tips for Relief of Diarrhea (DC), Nutrition Tips for Relief of Diarrhea (GEN) Referrals: Gallo Potter MD [Primary Care Provider] - <Gallo Potter - Last Filed: 02/07/18 21:11> Provider - Provider Date of Admission: 01/16/18 08:19 Attending physician: Gallo Potter MD Primary care physician: Gallo Potter MD Hospital Course - Lab Results Lab Results: Micro Results 01/30/18 20:55 Other: Please Indicate Mycobacterial Culture - Preliminary 01/30/18 20:55 Pleural Fluid Gram Stain - Final 01/30/18 20:55 Pleural Fluid Anaerobic Culture - Final NO ANAEROBES ISOLATED. 01/30/18 20:55 Pleural Fluid Body Fluid Culture - Final No growth. 01/30/18 20:55 Pleural Fluid Fungal Culture - Preliminary 01/30/18 12:00 Blood-Venous Blood Culture - Final NO GROWTH AFTER 5 DAYS 01/30/18 12:00 Blood-Venous Gram Stain - Final TEST NOT PERFORMED 01/30/18 12:30 Blood-Venous Blood Culture - Final NO GROWTH AFTER 5 DAYS 01/30/18 12:30 Blood-Venous Gram Stain - Final TEST NOT PERFORMED 01/28/18 14:30 Blood-Venous Blood Culture - Final NO GROWTH AFTER 5 DAYS 01/28/18 14:30 Blood-Venous Gram Stain - Final TEST NOT PERFORMED 01/28/18 14:45 Blood-Venous S.aureus & Coag-Neg Staph PNA FISH - Final 01/28/18 14:45 Blood-Venous Blood Culture - Final Vancomycin Resistant E.faecium 01/28/18 14:45 Blood-Venous Gram Stain - Final 01/27/18 20:04 Nose MRSA Culture (Admit) - Final MRSA NOT DETECTED 01/23/18 19:10 Other: Please Indicate Gram Stain - Final 01/23/18 19:10 Other: Please Indicate Anaerobic Culture - Final NO ANAEROBES ISOLATED. 01/23/18 19:10 Other: Please Indicate Wound Culture - Final Serratia Marcescens 01/18/18 12:20 Blood Blood Culture - Final NO GROWTH AFTER 5 DAYS 01/18/18 12:20 Blood Gram Stain - Final TEST NOT PERFORMED 01/18/18 11:35 Blood Blood Culture - Final NO GROWTH AFTER 5 DAYS 01/18/18 11:35 Blood Gram Stain - Final TEST NOT PERFORMED 01/17/18 09:55 Blood-Venous Blood Culture - Final Serratia Marcescens 01/17/18 09:55 Blood-Venous Gram Stain - Final 01/17/18 10:30 Blood-Venous Blood Culture - Final Serratia Marcescens 01/17/18 10:30 Blood-Venous Gram Stain - Final 01/16/18 19:48 Leg - Right Gram Stain - Final 01/16/18 19:48 Leg - Right Wound Culture - Final Klebsiella Oxytoca Serratia Marcescens Vancomycin Resistant E.faecium 01/16/18 08:30 Rectal Fluid VRE Culture - Final 01/16/18 08:30 Stool C. difficile Antigen & Toxins A,B - Final Most Recent Lab Values WBC 7.5 10^3/uL (4.5-11.0) 02/07/18 07:40 RBC 2.83 10^6/uL (3.5-6.1) L 02/07/18 07:40 Hgb 8.6 g/dL (14.0-18.0) L 02/07/18 07:40 Hct 27.9 % (42.0-52.0) L 02/07/18 07:40 MCV 98.6 fl (80.0-105.0) 02/07/18 07:40 MCH 30.4 pg (25.0-35.0) 02/07/18 07:40 MCHC 30.8 g/dl (31.0-37.0) L 02/07/18 07:40 RDW 20.3 % (11.5-14.5) H 02/07/18 07:40 Plt Count 70 10^3/uL (120.0-450.0) L 02/07/18 07:40 MPV 12.6 fl (7.0-11.0) H 02/07/18 07:40 Gran % 73.5 % (50.0-68.0) H 02/06/18 11:30 Lymph % (Auto) 13.6 % (22.0-35.0) L 02/06/18 11:30 [place] % (Auto) 12.7 % (1.0-6.0) H 02/06/18 11:30 Eos % (Auto) 0.1 % (1.5-5.0) L 02/06/18 11:30 Baso % (Auto) 0.1 % (0.0-3.0) 02/06/18 11:30 Gran # 5.84 (1.4-6.5) 02/06/18 11:30 Lymph # (Auto) 1.1 (1.2-3.4) L 02/06/18 11:30 [place] # (Auto) 1.0 (0.1-0.6) H 02/06/18 11:30 Eos # (Auto) 0.0 (0.0-0.7) 02/06/18 11:30 Baso # (Auto) 0.01 K/mm3 (0.0-2.0) 02/06/18 11:30 Neutrophils % (Manual) 83 % (50.0-70.0) H 01/31/18 06:20 Band Neutrophils % 1 % (0-2) 01/31/18 06:20 Lymphocytes % (Manual) 5 % (22.0-35.0) L 01/31/18 06:20 Atypical Lymphs % 1 % (0.0-0.0) H 01/24/18 15:45 Monocytes % (Manual) 11 % (1.0-6.0) H 01/31/18 06:20 Nucleated RBC % 1 % 01/18/18 10:00 Platelet Evaluation Low (NORMAL) 01/24/18 15:45 Large Platelets Present 01/18/18 10:00 Hypochromasia 1+ 01/18/18 10:00 Macrocytosis (manual) 2+ 01/18/18 10:00 Retic Count 2.99 % (0.5-1.5) H 01/25/18 09:00 PT 18.7 sec (9.0-11.5) H 01/25/18 09:00 INR 1.77 01/23/18 08:50 APTT 33.8 Seconds (25.1-36.5) 01/23/18 08:50 Mix PT Baseline 12.2 sec (< OR = 11.5) H 01/25/18 09:00 PT Incubation Time Corrected 01/25/18 09:00 Lupus Anticoag PTT Mix Corrected 01/25/18 09:00 Protein C Antigen 86 % (70-140) 01/24/18 15:45 Protein C Activity 96 % (70-180) 01/24/18 15:45 Protein S Activity 66 % (70-150) L 01/24/18 15:45 Protein S Antigen 96 % (70-140) 01/24/18 15:45 Factor V see note 01/24/18 15:45 Factor V Activity 60 % (65-150) L 01/24/18 15:45 pCO2 40 mm/Hg (35-45) 01/29/18 09:00 pO2 150.0 mm/Hg (80-100) H 01/29/18 09:00 HCO3 24.2 mmol/L (21-28) 01/29/18 09:00 ABG pH 7.39 (7.35-7.45) 01/29/18 09:00 ABG Total CO2 25.4 mmol.L (22-28) 01/29/18 09:00 ABG O2 Saturation 99.1 % (95-98) H 01/29/18 09:00 ABG O2 Content 12.5 ML/dl (15-23) L 01/29/18 09:00 ABG Base Excess -0.7 mmol/L (-2.0-3.0) 01/29/18 09:00 ABG Hemoglobin 8.9 g/dL (11.7-17.4) L 01/29/18 09:00 ABG Carboxyhemoglobin 1.8 % (0.5-1.5) H 01/29/18 09:00 POC ABG HHb (Measured) 0.9 % (0-5) 01/29/18 09:00 ABG Methemoglobin 0.4 % (0.0-3.0) 01/29/18 09:00 ABG O2 Capacity 12.6 mL/dl (16-24) L 01/29/18 09:00 VBG pH 7.37 (7.32-7.43) 01/16/18 04:25 VBG pCO2 56.0 (40-60) 01/16/18 04:25 VBG HCO3 32.4 mmol/l (21-28) H 01/16/18 04:25 VBG Total CO2 34.1 mmol.L (22-28) H 01/16/18 04:25 VBG O2 Sat (Calc) 90.8 % (40-65) H 01/16/18 04:25 VBG Base Excess 5.5 mmol/L (0.0-2.0) H 01/16/18 04:25 VBG Potassium 4.1 mmol/L (3.6-5.2) 01/16/18 04:25 Hgb O2 Saturation 97.0 % (95.0-98.0) 01/29/18 09:00 Sodium 138.0 mmol/L (132-148) 01/16/18 04:25 Chloride 101.0 mmol/L (98-107) 01/16/18 04:25 Glucose 259 mg/dl (75-110) H 01/16/18 04:25 Lactate 2.9 mmol/L (0.7-2.1) H 01/16/18 04:25 FiO2 32.0 % 01/29/18 09:00 Sodium 138 mmol/L (132-148) 02/07/18 07:40 Potassium 4.8 mmol/L (3.6-5.0) 02/07/18 07:40 Chloride 100 mmol/L (98-107) 02/07/18 07:40 Carbon Dioxide 29 mmol/L (21-33) 02/07/18 07:40 Anion Gap 13 (10-20) 02/07/18 07:40 BUN 19 mg/dL (7-21) 02/07/18 07:40 Creatinine 3.3 mg/dl (0.8-1.5) H 02/07/18 07:40 Est GFR ( Amer) 24 02/07/18 07:40 Est GFR (Non-Af Amer) 20 02/07/18 07:40 POC Glucose (mg/dL) 103 mg/dL (65-110) 02/07/18 14:30 Random Glucose 152 mg/dL (70-110) H 02/07/18 07:40 Hemoglobin A1c 6.8 % (4.2-6.5) H 01/17/18 06:15 Calcium 8.0 mg/dL (8.4-10.5) L 02/07/18 07:40 Phosphorus 4.7 mg/dL (2.5-4.5) H 02/07/18 07:40 Magnesium 2.0 mg/dL (1.7-2.2) 02/07/18 07:40 Ferritin 921.0 ng/mL 01/25/18 09:00 Total Bilirubin 1.4 mg/dL (0.2-1.3) H 02/06/18 11:30 Direct Bilirubin 1.0 mg/dL (0.0-0.4) H 01/25/18 09:00 AST 103 U/L (17-59) H 02/06/18 11:30 ALT 34 U/L (7-56) 02/06/18 11:30 Alkaline Phosphatase 173 U/L (38-126) H 02/06/18 11:30 Troponin I 0.45 ng/mL H* D 01/30/18 05:31 NT-Pro-B Natriuret Pep 61333 pg/mL (0-450) H 01/16/18 01:05 Total Protein 5.8 g/dL (5.8-8.3) 02/06/18 11:30 Albumin 2.2 g/dL (3.0-4.8) L 02/06/18 11:30 Globulin 3.6 gm/dL 02/06/18 11:30 Albumin/Globulin Ratio 0.6 (1.1-1.8) L 02/06/18 11:30 Triglycerides 97 mg/dL (35-160) 01/17/18 06:15 Cholesterol < 50 mg/dL (130-200) L 01/17/18 06:15 LDL Cholesterol Direct < 30 mg/dL (0-129) 01/17/18 06:15 HDL Cholesterol 8 mg/dL (29-60) L 01/17/18 06:15 Vitamin B12 > 1000 pg/mL (239-931) H 01/25/18 09:00 Folate 6.5 ng/mL 01/25/18 09:00 Procalcitonin 1.07 NG/ML (0.19-0.49) H 01/29/18 07:00 TSH 3rd Generation 6.56 mIU/mL (0.46-4.68) H 01/24/18 15:45 Cortisol AM Sample 24.8 ug/dL (4.46-22.7) H 01/30/18 05:31 Venous Blood Potassium 4.1 mmol/L (3.6-5.2) 01/16/18 04:25 Fluid Source Pleural 01/30/18 20:55 Fluid Appearance Clear (CLEAR) 01/30/18 20:55 Fluid pH 7 01/30/18 21:41 Fluid WBC 266.0 /uL (0.0-300.0) 01/30/18 20:55 Fluid RBC 133.1 /uL (0.0-0.0) H 01/30/18 20:55 Fluid Tot Cell Count 100 (0-0) H 01/30/18 20:55 Fluid Neutrophils 21.1 % (0-0) H 01/30/18 20:55 Fluid Lymphocytes 78.9 % (0-0) H 01/30/18 20:55 Fld Monocyte/Macrophag 0 % (0-0) 01/30/18 20:55 Fluid Comment Yellow 01/30/18 20:55 Pleural Total Protein 1.6 g/dL 01/30/18 20:55 Pleural LDH 141 U/L 01/30/18 20:55 Pleural Glucose 140 mg/dL 01/30/18 20:55 Opiates (GC/MS) negative 01/23/18 06:00 Methadone (GC/MS) negative 01/23/18 06:00 Propoxyphenes negative 01/23/18 06:00 Barbiturates negative 01/23/18 06:00 Phencyclidine (PCP) negative 01/23/18 06:00 Amphetamines negative 01/23/18 06:00 Benzodiazepines negative 01/23/18 06:00 Cocaine & Metabolite negative 01/23/18 06:00 Marijuana negative 01/23/18 06:00 Drugs of Abuse Comment See note 01/23/18 06:00 Hep Bs Antigen Negative (NEGATIVE) 01/16/18 17:30 Hep Bs Antibody Positive (NEGATIVE) 01/16/18 17:30 Hep B Core Total Ab Non reactive (Non Reactive) 01/16/18 17:30 Prothrombin Mut Interp see note 01/25/18 09:00 Prothrombin Gene Mutate see note 01/25/18 09:00 Prothromb Gene Review see note 01/25/18 09:00 Blood Type B POSITIVE 01/27/18 11:45 Antibody Screen Negative 01/27/18 11:45 Crossmatch See Detail 01/27/18 11:45 BBK History Checked Patient has bt 01/27/18 11:45 - Hospital Course Hospital Course: Pt seen and examined. I have reviewed the note of the emergency medical services coordinator and agree with it. I have discussed the assessment and plan with the resident. I have reviewed the patient's labs and medications. Pt with PAD and gangrene. He does not have steal syndrome. Spoke to surgery and medical management at this time. Pt will need 2 more weeks of Abx and mom is agreeable to go to [facility]. He has not been eating well. Poor prognosis.
--- NOTE | 2018-02-07 11:59 | CP.PCM.PN ---
Subjective - Date & Time of Evaluation Date of Evaluation: 02/07/18 Time of Evaluation: 07:00 - Subjective Subjective: Surgery: Dr. Schwarz Patient pleasant this am. Denies pain into the hands. No acute issues overnight. Objective - Vital Signs/Intake and Output Vital Signs (last 24 hours): Temp Pulse Resp BP Pulse Ox 98.4 F 79 19 101/50 L 96 02/07/18 06:00 02/07/18 06:00 02/07/18 06:00 02/07/18 06:00 02/07/18 06:00 - Medications Medications: Current Medications Acetaminophen (Tylenol 325mg Tab) 650 mg PO Q6H PRN PRN Reason: Pain, Mild (1-3) Last Admin: 02/07/18 05:50 Dose: 650 mg Albuterol/Ipratropium (Duoneb 3 Mg/0.5 Mg (3 Ml) Ud) 3 ml IH [id number] PRN PRN Reason: Shortness of Breath Last Admin: 02/04/18 07:35 Dose: 3 ml Arformoterol Tartrate (Brovana) 15 mcg IH [id number] [facility] Last Admin: 02/07/18 07:40 Dose: 15 mcg Aspirin (Ecotrin) 81 mg PO DAILY [facility] Last Admin: 02/06/18 11:47 Dose: 81 mg Atorvastatin Calcium (Lipitor) 80 mg PO HS [facility] Last Admin: 02/06/18 22:12 Dose: 80 mg Budesonide (Pulmicort Respules) 0.5 mg IH Q12H [facility] Last Admin: 02/07/18 07:40 Dose: 0.5 mg Duloxetine HCl (Cymbalta) 40 mg PO DAILY [facility] Last Admin: 02/06/18 11:46 Dose: 40 mg Famotidine (Pepcid) 20 mg PO HS [facility] Last Admin: 02/06/18 22:13 Dose: 20 mg Fenofibrate (Tricor) 145 mg PO DAILY [facility] Last Admin: 02/06/18 11:46 Dose: 145 mg Fluticasone Propionate (Flonase) 1 actuation NS DAILY PRN PRN Reason: Nasal congestion Guaifenesin (Mucinex La) 600 mg PO BID PRN PRN Reason: Cough Heparin Sodium (Porcine) (Heparin) 5,000 units SC Q12 [facility]; Protocol Last Admin: 01/26/18 15:40 Dose: Not Given Daptomycin 650 mg/ Sodium (Chloride) 100 mls @ 200 mls/hr IV Q24H [facility] Stop: 02/08/18 10:01 Last Admin: 02/06/18 12:06 Dose: 200 mls/hr Insulin Human Regular (Humulin R High) 0 units SC ACHS [facility]; Protocol Last Admin: 02/07/18 09:08 Dose: Not Given Latanoprost (Xalatan Opht) 0 ml OU HS [facility] Last Admin: 02/06/18 22:19 Dose: 2.5 ml Levothyroxine Sodium (Synthroid) 50 mcg PO 0600 [facility] Last Admin: 02/07/18 05:48 Dose: 50 mcg Metoprolol Tartrate (Lopressor) 25 mg PO BID [facility] Last Admin: 02/06/18 18:13 Dose: Not Given Midodrine (Proamatine) 5 mg PO TID [facility] Last Admin: 02/06/18 18:13 Dose: 5 mg Ondansetron HCl (Zofran Inj) 4 mg IVP Q6H PRN PRN Reason: Nausea/Vomiting Last Admin: 02/02/18 20:16 Dose: 4 mg Sodium Chloride ([place] Nasal [place]) 0 ml NS Q2 PRN PRN Reason: nasal congestion. Zaleplon (Sonata) 5 mg PO HS [facility] Last Admin: 02/06/18 22:19 Dose: Not Given - Labs Labs: 02/07/18 07:40 02/07/18 07:40 PT 18.7 sec (9.0-11.5) H 01/25/18 09:00 INR 1.77 01/23/18 08:50 APTT 33.8 Seconds (25.1-36.5) 01/23/18 08:50 - Constitutional Appears: No Acute Distress - Head Exam Head Exam: ATRAUMATIC, NORMOCEPHALIC - Eye Exam Eye Exam: EOMI, Normal appearance - Respiratory Exam Respiratory Exam: NORMAL BREATHING PATTERN. absent: Respiratory Distress - Cardiovascular Exam Cardiovascular Exam: REGULAR RHYTHM. absent: Tachycardia - Extremities Exam Additional comments: necrosis spanning the posterior mid line left hand with necrosis around prior amputation site: betadine redressed Right pinky with well demarcated necrosis to the PIP joint- betadine applied right BKA wound clean with pink granulation tissue, redressed and wound recultured Assessment and Plan - Assessment and Plan (Free Text) Assessment: 52 y/o male w/ severe PVD with bilateral ischemic changes to the fingers, questionable steal syndrome-less likely Plan: -ischemic changes could be 2/2 severity of PVD considering the bilateral nature of the ischemia, Patient will most likely not benefit from DRIL or AVF ligation. -can apply betadine to dry gangrene areas BID for local wound care -cont brilinta -case discussed in length with Dr. Schwarz [facility] PGY4
--- NOTE | 2018-02-07 13:56 | PN ---
DATE: 02/07/2018 PULMONARY PROGRESS NOTE REFERRING PHYSICIAN: Gallo Potter MD. SUBJECTIVE: He is just finishing off the dialysis, comfortable. Feels better. No headache. No rhinitis. No cough. No sputum production. Right stump of wound is getting slowly better. OBJECTIVE: GENERAL: No acute distress. VITAL SIGNS: Temp is 98, heart rate is 79, respiratory rate is 19, blood pressure of 101/50, pulse ox 96% on nasal cannula. HEENT: Moist mucous membrane. Crowded airway. NECK: Supple. No JVD. LUNGS: Have a fair airflow with rhonchi. HEART: S1 and S2. ABDOMEN: Soft, nontender, nondistended. Right stump is no more bleeding. Wound is drying up. No secretion. NEUROLOGICAL: Awake and alert. Follows simple command. Has a right hand fifth digit ischemic, has a dressing on the left hand third digit which has been amputated. MEDICATIONS: He is on Brovana inhaled twice a day, Cymbalta 40 mg daily, daptomycin 650 mg daily, DuoNeb every 6 hours p.r.n., Ecotrin 81 mg daily, Flonase one spray each nostril daily p.r.n., heparin 5000 units subcu every 12 hours, Lipitor 80 mg by mouth at bedtime, metoprolol tartrate 25 mg twice a day, Mucinex LA 600 mg twice a day p.r.n., Pepcid is at 20 mg at bedtime, midodrine 5 mg three times a day, budesonide 0.5 mg every 12 hours, Sonata 5 mg at bedtime, Synthroid 50 mcg daily, Tricor 145 mg daily, Tylenol p.r.n., Zofran 4 mg every 6 hours p.r.n. LABORATORY DATA: Shows hemoglobin 8.6, hematocrit 27.9, WBC is 7.5, platelet count is 70. Sodium 138, potassium 4.8, chloride 100, bicarbonate 29, BUN is 19, creatinine 3.3, glucose is 152, calcium 8, phosphorus 4.7, magnesium is 2. Microbiology: Blood cultures done from 01/30/2018, so far there is no growth. Pleural effusion. There is specimen. There is no growth. IMPRESSION AND PLAN: Resolving bacteremia, on antibiotics; chronic obstructive lung disease; obstructive sleep apnea syndrome; cardiomyopathy; coronary artery disease; history of cardiac arrhythmia requiring pacemaker; renal failure, dialysis dependent; severe peripheral vascular disease requiring right below-knee amputation; has a right fifth digit hand ischemia; status post amputation of the third digit on the left hand; chronic pain syndrome. Pulmonary point of view, doing okay. Encourage BiPAP use. Keep head at 45 degrees. Careful with sedation. Gastric prophylaxis. On antibiotics. Being followed by Infectious Diseases and Vascular and Cardiology. May start bedside physical therapy. Fall precaution. Thank you and we will follow with you. Jarred Escalera MD
[2018-02-07 14:38] VITALS: BP 96/65; PULSE 77
--- NOTE | 2018-02-07 15:47 | PN ---
DATE: 02/07/2018 REASON FOR CONSULTATION AND FOLLOWUP: Cardiac evaluation, history of coronary artery disease, history of peripheral arterial disease, and history of pacemaker. This note is an addition to a note dictated by our nurse practitioner, Karlie Moreau. Please see my detailed note dictated yesterday. Again, echo was recommended to repeat, but as I mentioned in my note, the patient has end-stage renal disease on dialysis and lot of calcium and phosphate product deposited in both aortic and mitral valve, hard to differentiate calcium from vegetation. The patient was mislabeled last two admissions at [facility] for endocarditis, so at that time LASHAWN was done and all previous echo compared from previous echo. No new vegetations are noted except the calcium phosphate product. So in view of above very low yield rate for regular transthoracic echo. We will also discuss with Dr. Forbes, if the index of suspicion is high, please treat as endocarditis, but no point in doing echo at this time. The patient also has history of PAD, has bleeding from the stump, Brilinta is off. The patient is going for rehab therapy for four weeks, for two weeks IV antibiotics. Discussed with mother yesterday, Ab on telephone number [phone] to explain all the patient's condition. They are willing to go to [place] or [facility] for a second opinion and second look. Suggested to take the patient to [place] as an outpatient because they cannot transfer the patient's care from [place] as there is no acute emergency at this time. Answered all questions to the mother and the family. I explained this morning also to the patient, Ab itself. I yesterday discussed with Dr. Potter. We will discuss also with infectious disease specialist Dr. Forbes. The patient is stable from Cardiology point of view to be transferred to the rehab facility. The patient is off Brilinta because of massive bleeding from the stump requiring three units of blood and PNP. Again, this note is an addition to a note dictated by nurse practitioner. Jarred Erickson MD [facility] # [id number]
--- NOTE | 2018-02-23 03:29 | OP ---
PROCEDURE DATE: 01/23/2018 SURGEON: Medardo Urrutia MD PREOPERATIVE DIAGNOSIS: Infected stump that is dehisced. DESCRIPTION OF PROCEDURE: In the operating room, the patient was identified, was prepped with Betadine and then draped in appropriate place. A tourniquet was used, never turned on. Using a stockinette and extremity draped, the wound was explored after the time-out was successful. The skin was minimally debrided. The deep fascia was irrigated and using the Versajet. There was considerable bleeding consistent with his anticoagulated state. Cautery was used as was pressor and Surgicel. A light pressure dressing was applied at the end. The patient was taken to recovery room in good condition after the sponge and needle count was declared correct. The skin was loosened out, but it should be easily closable at another time. Medardo Urrutia MD MTDD
== END 2018-02-07 18:13 | DRG 264 ==
LOC: ED 23:26 → ERH 01-16 02:29 → 2RNO 01-16 03:50 → OBSVTOIN 01-16 08:19 → CCU 01-27 17:49 → ICU 01-31 00:08 → 2RNO 01-31 17:20
PROVIDERS: ADMIT Internal Medicine Nephrology; ATTEND Internal Medicine Nephrology
PROC: 5A09457 Assistance with Respiratory Ventilation, 24-96 Consecutive Hours, Continuous Positive Airway Pressure (ICD-10-PCS; 2018-01-20)
PROC: 05HY33Z Insertion of Infusion Device into Upper Vein, Percutaneous Approach (ICD-10-PCS; 2018-01-23)
PROC: 0YBF0ZZ Excision of Right Knee Region, Open Approach (ICD-10-PCS; principal; 2018-01-23 08:00)
PROC: 30233N1 Transfusion of Nonautologous Red Blood Cells into Peripheral Vein, Percutaneous Approach (ICD-10-PCS; 2018-01-27)
PROC: 06HY33Z Insertion of Infusion Device into Lower Vein, Percutaneous Approach (ICD-10-PCS; 2018-01-27)
PROC: 4A133B1 Monitoring of Arterial Pressure, Peripheral, Percutaneous Approach (ICD-10-PCS; 2018-01-27)
PROC: 4A133J1 Monitoring of Arterial Pulse, Peripheral, Percutaneous Approach (ICD-10-PCS; 2018-01-27)
PROC: 6A550Z2 Pheresis of Platelets, Single (ICD-10-PCS; 2018-01-27)
PROC: 5A1D70Z Performance of Urinary Filtration, Intermittent, Less than 6 Hours Per Day (ICD-10-PCS; 2018-01-28)
PROC: 5A1D70Z Performance of Urinary Filtration, Intermittent, Less than 6 Hours Per Day (ICD-10-PCS; 2018-01-29)
PROC: 0W9B3ZX Drainage of Left Pleural Cavity, Percutaneous Approach, Diagnostic (ICD-10-PCS; 2018-01-30)
PROC: 0W993ZX Drainage of Right Pleural Cavity, Percutaneous Approach, Diagnostic (ICD-10-PCS; 2018-01-30)
PROC: 5A1D70Z Performance of Urinary Filtration, Intermittent, Less than 6 Hours Per Day (ICD-10-PCS; 2018-01-31)
PROC: B41 Imaging, Lower Arteries, Fluoroscopy (ICD-10-PCS; 2018-02-02)
PROC: 5A1D70Z Performance of Urinary Filtration, Intermittent, Less than 6 Hours Per Day (ICD-10-PCS; 2018-02-02)
PROC: 5A1D70Z Performance of Urinary Filtration, Intermittent, Less than 6 Hours Per Day (ICD-10-PCS; 2018-02-05)
PROC: 5A1D70Z Performance of Urinary Filtration, Intermittent, Less than 6 Hours Per Day (ICD-10-PCS; 2018-02-07)
DX: T82.7XXA Infection and inflammatory reaction due to other cardiac and vascular devices, implants and grafts, initial encounter (principal); A41.53 Sepsis due to Serratia; L89.153 Pressure ulcer of sacral region, stage 3; N18.6 End stage renal disease; R65.21 Severe sepsis with septic shock; E43 Unspecified severe protein-calorie malnutrition; J18.9 Pneumonia, unspecified organism; R57.8 Other shock; A41.81 Sepsis due to Enterococcus; G93.41 Metabolic encephalopathy; T87.43 Infection of amputation stump, right lower extremity; I13.2 Hypertensive heart and chronic kidney disease with heart failure and with stage 5 chronic kidney disease, or end stage renal disease; I73.01 Raynaud's syndrome with gangrene; E27.40 Unspecified adrenocortical insufficiency; L03.90 Cellulitis, unspecified; J98.11 Atelectasis; J44.0 Chronic obstructive pulmonary disease with (acute) lower respiratory infection; D62 Acute posthemorrhagic anemia; D68.59 Other primary thrombophilia; E10.52 Type 1 diabetes mellitus with diabetic peripheral angiopathy with gangrene; A04.72 Enterocolitis due to Clostridium difficile, not specified as recurrent; R18.8 Other ascites; E10.43 Type 1 diabetes mellitus with diabetic autonomic (poly)neuropathy; R19.7 Diarrhea, unspecified; Z89.511 Acquired absence of right leg below knee; Z86.73 Personal history of transient ischemic attack (TIA), and cerebral infarction without residual deficits; N40.0 Benign prostatic hyperplasia without lower urinary tract symptoms; Z99.2 Dependence on renal dialysis; E10.22 Type 1 diabetes mellitus with diabetic chronic kidney disease; I50.9 Heart failure, unspecified; E10.40 Type 1 diabetes mellitus with diabetic neuropathy, unspecified; R10.84 Generalized abdominal pain; D64.9 Anemia, unspecified; L89.152 Pressure ulcer of sacral region, stage 2; Z79.4 Long term (current) use of insulin; E03.9 Hypothyroidism, unspecified; K31.84 Gastroparesis; J44.9 Chronic obstructive pulmonary disease, unspecified; I73.00 Raynaud's syndrome without gangrene; I25.10 Atherosclerotic heart disease of native coronary artery without angina pectoris; G47.33 Obstructive sleep apnea (adult) (pediatric); E10.51 Type 1 diabetes mellitus with diabetic peripheral angiopathy without gangrene; I08.3 Combined rheumatic disorders of mitral, aortic and tricuspid valves; Z89.512 Acquired absence of left leg below knee; Z95.5 Presence of coronary angioplasty implant and graft; I27.20 Pulmonary hypertension, unspecified; F32.9 Major depressive disorder, single episode, unspecified; D69.6 Thrombocytopenia, unspecified; D63.1 Anemia in chronic kidney disease; Z16.21 Resistance to vancomycin; Z79.899 Other long term (current) drug therapy; E10.21 Type 1 diabetes mellitus with diabetic nephropathy; E10.319 Type 1 diabetes mellitus with unspecified diabetic retinopathy without macular edema; E10.621 Type 1 diabetes mellitus with foot ulcer; E10.649 Type 1 diabetes mellitus with hypoglycemia without coma; E10.65 Type 1 diabetes mellitus with hyperglycemia; E66.9 Obesity, unspecified; E78.5 Hyperlipidemia, unspecified; E87.5 Hyperkalemia; G89.4 Chronic pain syndrome; H40.9 Unspecified glaucoma; I25.2 Old myocardial infarction; I25.5 Ischemic cardiomyopathy; I49.5 Sick sinus syndrome; L03.011 Cellulitis of right finger; L97.519 Non-pressure chronic ulcer of other part of right foot with unspecified severity; M81.0 Age-related osteoporosis without current pathological fracture; Y83.5 Amputation of limb(s) as the cause of abnormal reaction of the patient, or of later complication, without mention of misadventure at the time of the procedure; Z68.31 Body mass index [BMI] 31.0-31.9, adult; Z78.9 Other specified health status; Z79.2 Long term (current) use of antibiotics; Z79.52 Long term (current) use of systemic steroids; Z79.82 Long term (current) use of aspirin; Z79.890 Hormone replacement therapy; Z82.49 Family history of ischemic heart disease and other diseases of the circulatory system; Z83.3 Family history of diabetes mellitus; Z88.0 Allergy status to penicillin; Z89.429 Acquired absence of other toe(s), unspecified side; Z89.431 Acquired absence of right foot; Z90.49 Acquired absence of other specified parts of digestive tract; Z91.15 Patient's noncompliance with renal dialysis; Z91.19 Patient's noncompliance with other medical treatment and regimen; Z95.0 Presence of cardiac pacemaker